=== PATIENT | male | born 1960 | race American Indian/Alaskan Native ===

== ENCOUNTER 2019-05-31 07:40 | Inpatient (IN) | payer OTHER ==
--- NOTE | 2019-05-31 09:39 | XRay Report ---
CHEST 1 VIEW INDICATION: JEFF. COMPARISON: None. FINDINGS: Support devices: None. Heart: Within normal limits. Pulmonary vasculature: Normal. Lungs/Pleura: Left lower lobe opacification with silhouetting of the left hemidiaphragm and the left heart border. Additional partially circumscribed rounded left lower lobe opacity. The left upper lobe is clear. The right lung is clear. Additional findings: None. IMPRESSION: 1. Acute left lower lobe pneumonia . 2. Recommend radiographic follow-up to resolution. Signer Name: Ky Dickerson MD Signed: 05/31/2019 9:35 AM Workstation Name: [id number]
[2019-05-31 09:41] LABS: Hematocrit 28.8 % (35.5-45.6); Hemoglobin 8.8 gm/dl (11.8-15.2); Mean Corpuscular HGB Conc 31 % (32-34); Mean Corpuscular Volume 83 fl (84-94); Platelet Count 349 K/mm3 (140-440); Red Blood Count 3.46 M/mm3 (3.65-5.03); Red Cell Distribution Width 18.3 % (13.2-15.2)
[2019-05-31 09:50] LABS: INR 1.04 (0.87-1.13)
[2019-05-31 10:11] LABS: Creatine Kinase MB < 1.0 ng/mL (0.0-4.0)
[2019-05-31 10:12] LABS: Alanine Aminotransferase 22 units/L (7-56); Albumin 3.1 g/dL (3.9-5); BUN/Creatinine Ratio 13; Bilirubin,Direct < 0.2 mg/dL (0-0.2); Blood Urea Nitrogen 13 mg/dL (9-20); Calcium 8.8 mg/dL (8.4-10.2); Hemolysis Index 13
[2019-05-31 11:29] LABS: Bacteria,Urine 1+ /HPF (Negative); Mucus,Urine FEW /HPF; RBC,Urine < 1.0 /HPF (0.0-6.0); WBC,Urine < 1.0 /HPF (0.0-6.0)
[2019-05-31 11:38] LABS: Bilirubin,Urine Negative (Negative); Blood,Urine Negative (Negative); Color,Urine Yellow (Yellow)
[2019-05-31] MEDS ORDERED: FUROSEMIDE 40 MG/4 ML INJ IV ONE (11:58)
[2019-05-31 12:01] LABS: Basophils % (Manual) 0 % (0.0-1.8); Total Cells Counted 100
[2019-05-31 12:02] LABS: Anisocytosis Few; Hypochromasia 1+; Ovalocytes Few; Platelet Estimate Consistent w Auto; Poikilocytosis Few
[2019-05-31] MEDS ORDERED: INSULIN REGULAR, HUMAN 100 UNITS/1 ML IV ONE (12:10)
[2019-05-31] MEDS ORDERED: HEPARIN 10,000 UNITS/10 ML VIAL IV ONE (12:11)
[2019-05-31 12:49] LABS: Hematocrit 29.6 % (35.5-45.6); Hemoglobin 9.1 gm/dl (11.8-15.2)
[2019-05-31 12:53] LABS: INR 1.1 (0.87-1.13)
[2019-05-31 12:54] LABS: Partial Thromboplastin Time 41.1 Sec. (24.2-36.6)
[2019-05-31] MEDS ORDERED: HEPARIN/ 0.45% NACL DRIP 25,000 UNIT/500 ML BAG IV SCH (13:00)
--- NOTE | 2019-05-31 14:19 | Emergency Department Report ---
ED Shortness of Breath HPI - General Chief Complaint: Dyspnea/Respdistress Stated Complaint: LEG SWELLING Time Seen by Provider: 05/31/19 08:30 Source: patient, EMS Mode of arrival: Stretcher Limitations: Physical Limitation - History of Present Illness Initial Comments: This is a 58-year-old pleasant gentleman place of bilateral lower extremity swelling he states for a week but perhaps it has been somewhat chronic. He has been short of breath on exertion. He states that it is worse in supine position. Apparently EMS found him with an initial pulse oximetry of 85%. He is not on home oxygen. He did improve to the high 90s with 2 L of supplemental O2. I encountered he is still tachypnea but not and respiratory distress. He denies recent fever or chills. He is not complaining of chest pain. He is somewhat of a poor historian. He cannot identify his current medications. However he states he is not on anticoagulation and has no history of VTE. MD Complaint: shortness of breath, cough (nonproductive) Severity: moderate Known History Of: COPD (JOE) Associated Symptoms: denies other symptoms - Related Data Allergies Allergy/AdvReac Type Severity Reaction Status Date / Time Unable to Assess Allergy Unverified 05/31/19 07:56 ED Review of Systems ROS: Stated complaint: LEG SWELLING Other details as noted in HPI Constitutional: denies: chills, fever Eyes: denies: eye pain, eye discharge, vision change ENT: denies: ear pain, throat pain Respiratory: cough, shortness of breath. denies: wheezing Cardiovascular: edema. denies: chest pain, palpitations Endocrine: no symptoms reported Gastrointestinal: denies: abdominal pain, nausea, diarrhea Genitourinary: denies: urgency, dysuria Musculoskeletal: denies: back pain, joint swelling, arthralgia Skin: denies: rash, lesions Neurological: denies: headache, weakness, paresthesias Psychiatric: denies: anxiety, depression Hematological/Lymphatic: denies: easy bleeding, easy bruising ED Past Medical Hx - Past Medical History Previous Medical History?: Yes Hx Hypertension: Yes Hx Congestive Heart Failure: Yes Hx Diabetes: Yes Additional medical history: JOE - Surgical History Past Surgical History?: Yes Hx Cholecystectomy: Yes - Social History Smoking Status: Never Smoker Substance Use Type: None ED Physical Exam - General Limitations: Physical Limitation General appearance: alert, in no apparent distress, other (somewhat tachypneic) - Head Head exam: Present: atraumatic, normocephalic - Eye Eye exam: Present: normal appearance. Absent: scleral icterus - ENT ENT exam: Present: mucous membranes moist - Neck Neck exam: Present: normal inspection, other (left supraclavicular mass nonpulsatile noted). Absent: tenderness, meningismus - Respiratory Respiratory exam: Present: normal lung sounds bilaterally. Absent: respiratory distress - Cardiovascular Cardiovascular Exam: Present: regular rate, normal rhythm. Absent: systolic murmur, diastolic murmur, rubs, gallop - GI/Abdominal GI/Abdominal exam: Present: soft, normal bowel sounds. Absent: distended, tenderness, guarding, rebound, rigid - Rectal Rectal exam: Present: deferred - Extremities Exam Extremities exam: Present: pedal edema (somewhat warm lower legs consistent with venous stasis and lymphedema), other (of special lower leg edema below the knee right greater than left. No calf tenderness.). Absent: calf tenderness - Back Exam Back exam: Present: normal inspection - Neurological Exam Neurological exam: Present: alert, oriented X3, CN II-XII intact. Absent: motor sensory deficit - Psychiatric Psychiatric exam: Present: normal affect, normal mood - Skin Skin exam: Present: warm, dry, intact, normal color. Absent: rash ED Course Vital Signs 05/31/19 05/31/19 05/31/19 07:43 07:50 08:00 Temperature 97.6 F Pulse Rate 100 H 103 H 100 H Respiratory 30 H 42 H 34 H Rate Blood Pressure 109/54 121/53 Blood Pressure [Left] O2 Sat by Pulse 97 97 Oximetry 05/31/19 05/31/19 05/31/19 10:00 12:00 14:23 Temperature Pulse Rate 96 H 97 H 102 H Respiratory 38 H 37 H 25 H Rate Blood Pressure 127/68 126/72 Blood Pressure 109/73 [Left] O2 Sat by Pulse 98 99 98 Oximetry - Reevaluation(s) Reevaluation #1: Patient was given antibiotics for pneumonia. He is given 1 dose of Lasix. He was empirically heparinized considering his d-dimer of greater than 4200 and is very swollen legs. His BMP was not substantially elevated. I spoke to the [facility] physician concerning the patient's need for admission. A CT angiogram was pending at that time. I will call her back to discuss the results. 05/31/19 14:25 Reevaluation #2: The patient's antecubital line blew upon attempted CTA. I'll inform the [facility] physician as CTA does not appear to be feasible at this point. 05/31/19 14:36 Reevaluation #3: Discussed with Dr. Schroeder at [facility]. She requested that we admit the patient here. 05/31/19 15:07 ED Medical Decision Making - Lab Data Result diagrams: 05/31/19 12:21 05/31/19 08:59 Laboratory Results - last 24 hr 05/31/19 05/31/19 05/31/19 08:59 08:59 08:59 WBC 7.5 RBC 3.46 L Hgb 8.8 L Hct 28.8 L MCV 83 L MCH 26 L MCHC 31 L RDW 18.3 H Plt Count 349 [place] % (Auto) [employer] Add Manual Diff Complete Total Counted 100 Seg Neuts % (Manual) 67.0 Band Neutrophils % 0 Lymphocytes % (Manual) 14.0 Reactive Lymphs % (Man) 0 Monocytes % (Manual) 11.0 H Eosinophils % (Manual) 8.0 H Basophils % (Manual) 0 Metamyelocytes % 0 Myelocytes % 0 Promyelocytes % 0 Blast Cells % 0 Nucleated RBC % Not Reportable Seg Neutrophils # Man 5.0 Band Neutrophils # 0.0 Lymphocytes # (Manual) 1.1 L Abs React Lymphs (Man) 0.0 Monocytes # (Manual) 0.8 Eosinophils # (Manual) 0.6 H Basophils # (Manual) 0.0 Metamyelocytes # 0.0 Myelocytes # 0.0 Promyelocytes # 0.0 Blast Cells # 0.0 WBC Morphology Not Reportable Hypersegmented Neuts Not Reportable Hyposegmented Neuts Not Reportable Hypogranular Neuts Not Reportable Smudge Cells Not Reportable Toxic Granulation Not Reportable Toxic Vacuolation Not Reportable Dohle Bodies Not Reportable Pelger-Huet Anomaly Not Reportable Mervin Rods Not Reportable Platelet Estimate Consistent w auto Clumped Platelets Not Reportable Plt Clumps, EDTA Not Reportable Large Platelets Not Reportable Giant Platelets Not Reportable Platelet Satelliting Not Reportable Plt Morphology Comment Not Reportable RBC Morphology Not Reportable Dimorphic RBCs Not Reportable Polychromasia Not Reportable Hypochromasia 1+ Poikilocytosis Few Anisocytosis Few Microcytosis Not Reportable Macrocytosis Not Reportable Spherocytes Not Reportable Pappenheimer Bodies Not Reportable Sickle Cells Not Reportable Target Cells Not Reportable Tear Drop Cells Not Reportable Ovalocytes Few Helmet Cells Not Reportable Brink-[place] Bodies Not Reportable [place] Rings Not Reportable [place] Cells Not Reportable Bite Cells Not Reportable Crenated Cell Not Reportable Elliptocytes Rare Acanthocytes (Spur) Not Reportable Rouleaux Not Reportable Hemoglobin C Crystals Not Reportable Schistocytes Not Reportable Malaria parasites Not Reportable Gianni Bodies Not Reportable Hem Pathologist Commnt No PT 13.5 INR 1.04 APTT 26.0 D-Dimer 4262.71 H Sodium 142 Potassium 5.4 H Chloride 106.2 Carbon Dioxide 19 L Anion Gap 22 BUN 13 Creatinine 1.0 Estimated GFR > 60 BUN/Creatinine Ratio 13 Glucose 304 H Calcium 8.8 Magnesium 1.70 Total Bilirubin 0.20 Direct Bilirubin < 0.2 Indirect Bilirubin 0.0 AST 27 ALT 22 Alkaline Phosphatase 103 Total Creatine Kinase 35 L CK-MB (CK-2) < 1.0 CK-MB (CK-2) Rel Index 2.8 Troponin T < 0.010 NT-Pro-B Natriuret Pep 305.5 Total Protein 7.0 Albumin 3.1 L Albumin/Globulin Ratio 0.8 Urine Color Urine Turbidity Urine pH Ur Specific [place] Urine Protein Urine Glucose (UA) Urine Ketones Urine Blood Urine Nitrite Ur Reducing Substances Urine Bilirubin Urine Ictotest Urine Urobilinogen Ur Leukocyte Esterase Urine WBC (Auto) Urine RBC (Auto) U Epithel Cells (Auto) Urine Bacteria (Auto) Urine Mucus Blood Type 05/31/19 05/31/19 05/31/19 12:21 12:21 12:21 WBC RBC Hgb 9.1 L Hct 29.6 L MCV MCH MCHC RDW Plt Count 375 [place] % (Auto) Add Manual Diff Total Counted Seg Neuts % (Manual) Band Neutrophils % Lymphocytes % (Manual) Reactive Lymphs % (Man) Monocytes % (Manual) Eosinophils % (Manual) Basophils % (Manual) Metamyelocytes % Myelocytes % Promyelocytes % Blast Cells % Nucleated RBC % Seg Neutrophils # Man Band Neutrophils # Lymphocytes # (Manual) Abs React Lymphs (Man) Monocytes # (Manual) Eosinophils # (Manual) Basophils # (Manual) Metamyelocytes # Myelocytes # Promyelocytes # Blast Cells # WBC Morphology Hypersegmented Neuts Hyposegmented Neuts Hypogranular Neuts Smudge Cells Toxic Granulation Toxic Vacuolation Dohle Bodies Pelger-Huet Anomaly Mervin Rods Platelet Estimate Clumped Platelets Plt Clumps, EDTA Large Platelets Giant Platelets Platelet Satelliting Plt Morphology Comment RBC Morphology Dimorphic RBCs Polychromasia Hypochromasia Poikilocytosis Anisocytosis Microcytosis Macrocytosis Spherocytes Pappenheimer Bodies Sickle Cells Target Cells Tear Drop Cells Ovalocytes Helmet Cells Brink-[place] Bodies [place] Rings [place] Cells Bite Cells Crenated Cell Elliptocytes Acanthocytes (Spur) Rouleaux Hemoglobin C Crystals Schistocytes Malaria parasites Gianni Bodies Hem Pathologist Commnt PT 14.1 INR 1.10 APTT 41.1 H D-Dimer Sodium Potassium Chloride Carbon Dioxide Anion Gap BUN Creatinine Estimated GFR BUN/Creatinine Ratio Glucose Calcium Magnesium Total Bilirubin Direct Bilirubin Indirect Bilirubin AST ALT Alkaline Phosphatase Total Creatine Kinase CK-MB (CK-2) CK-MB (CK-2) Rel Index Troponin T NT-Pro-B Natriuret Pep Total Protein Albumin Albumin/Globulin Ratio Urine Color Urine Turbidity Urine pH Ur Specific [place] Urine Protein Urine Glucose (UA) Urine Ketones Urine Blood Urine Nitrite Ur Reducing Substances Urine Bilirubin Urine Ictotest Urine Urobilinogen Ur Leukocyte Esterase Urine WBC (Auto) Urine RBC (Auto) U Epithel Cells (Auto) Urine Bacteria (Auto) Urine Mucus Blood Type A POSITIVE 05/31/19 Unknown WBC RBC Hgb Hct MCV MCH MCHC RDW Plt Count [place] % (Auto) Add Manual Diff Total Counted Seg Neuts % (Manual) Band Neutrophils % Lymphocytes % (Manual) Reactive Lymphs % (Man) Monocytes % (Manual) Eosinophils % (Manual) Basophils % (Manual) Metamyelocytes % Myelocytes % Promyelocytes % Blast Cells % Nucleated RBC % Seg Neutrophils # Man Band Neutrophils # Lymphocytes # (Manual) Abs React Lymphs (Man) Monocytes # (Manual) Eosinophils # (Manual) Basophils # (Manual) Metamyelocytes # Myelocytes # Promyelocytes # Blast Cells # WBC Morphology Hypersegmented Neuts Hyposegmented Neuts Hypogranular Neuts Smudge Cells Toxic Granulation Toxic Vacuolation Dohle Bodies Pelger-Huet Anomaly Mervin Rods Platelet Estimate Clumped Platelets Plt Clumps, EDTA Large Platelets Giant Platelets Platelet Satelliting Plt Morphology Comment RBC Morphology Dimorphic RBCs Polychromasia Hypochromasia Poikilocytosis Anisocytosis Microcytosis Macrocytosis Spherocytes Pappenheimer Bodies Sickle Cells Target Cells Tear Drop Cells Ovalocytes Helmet Cells Brink-[place] Bodies [place] Rings [place] Cells Bite Cells Crenated Cell Elliptocytes Acanthocytes (Spur) Rouleaux Hemoglobin C Crystals Schistocytes Malaria parasites Gianni Bodies Hem Pathologist Commnt PT INR APTT D-Dimer Sodium Potassium Chloride Carbon Dioxide Anion Gap BUN Creatinine Estimated GFR BUN/Creatinine Ratio Glucose Calcium Magnesium Total Bilirubin Direct Bilirubin Indirect Bilirubin AST ALT Alkaline Phosphatase Total Creatine Kinase CK-MB (CK-2) CK-MB (CK-2) Rel Index Troponin T NT-Pro-B Natriuret Pep Total Protein Albumin Albumin/Globulin Ratio Urine Color Yellow Urine Turbidity Clear Urine pH 6.0 Ur Specific [place] 1.010 Urine Protein 30 mg/dl Urine Glucose (UA) Negative Urine Ketones Negative Urine Blood Negative Urine Nitrite Negative Ur Reducing Substances Not Reportable Urine Bilirubin Negative Urine Ictotest Not Reportable Urine Urobilinogen 0.0 Ur Leukocyte Esterase Negative Urine WBC (Auto) < 1.0 Urine RBC (Auto) < 1.0 U Epithel Cells (Auto) 1.0 Urine Bacteria (Auto) 1+ Urine Mucus Few Blood Type Laboratory Results - last 24 hr 05/31/19 05/31/19 05/31/19 08:59 08:59 08:59 WBC 7.5 RBC 3.46 L Hgb 8.8 L Hct 28.8 L MCV 83 L MCH 26 L MCHC 31 L RDW 18.3 H Plt Count 349 [place] % (Auto) [employer] Add Manual Diff Complete Total Counted 100 Seg Neuts % (Manual) 67.0 Band Neutrophils % 0 Lymphocytes % (Manual) 14.0 Reactive Lymphs % (Man) 0 Monocytes % (Manual) 11.0 H Eosinophils % (Manual) 8.0 H Basophils % (Manual) 0 Metamyelocytes % 0 Myelocytes % 0 Promyelocytes % 0 Blast Cells % 0 Nucleated RBC % Not Reportable Seg Neutrophils # Man 5.0 Band Neutrophils # 0.0 Lymphocytes # (Manual) 1.1 L Abs React Lymphs (Man) 0.0 Monocytes # (Manual) 0.8 Eosinophils # (Manual) 0.6 H Basophils # (Manual) 0.0 Metamyelocytes # 0.0 Myelocytes # 0.0 Promyelocytes # 0.0 Blast Cells # 0.0 WBC Morphology Not Reportable Hypersegmented Neuts Not Reportable Hyposegmented Neuts Not Reportable Hypogranular Neuts Not Reportable Smudge Cells Not Reportable Toxic Granulation Not Reportable Toxic Vacuolation Not Reportable Dohle Bodies Not Reportable Pelger-Huet Anomaly Not Reportable Mervin Rods Not Reportable Platelet Estimate Consistent w auto Clumped Platelets Not Reportable Plt Clumps, EDTA Not Reportable Large Platelets Not Reportable Giant Platelets Not Reportable Platelet Satelliting Not Reportable Plt Morphology Comment Not Reportable RBC Morphology Not Reportable Dimorphic RBCs Not Reportable Polychromasia Not Reportable Hypochromasia 1+ Poikilocytosis Few Anisocytosis Few Microcytosis Not Reportable Macrocytosis Not Reportable Spherocytes Not Reportable Pappenheimer Bodies Not Reportable Sickle Cells Not Reportable Target Cells Not Reportable Tear Drop Cells Not Reportable Ovalocytes Few Helmet Cells Not Reportable Brink-[place] Bodies Not Reportable [place] Rings Not Reportable [place] Cells Not Reportable Bite Cells Not Reportable Crenated Cell Not Reportable Elliptocytes Rare Acanthocytes (Spur) Not Reportable Rouleaux Not Reportable Hemoglobin C Crystals Not Reportable Schistocytes Not Reportable Malaria parasites Not Reportable Gianni Bodies Not Reportable Hem Pathologist Commnt No PT 13.5 INR 1.04 APTT 26.0 D-Dimer 4262.71 H Sodium 142 Potassium 5.4 H Chloride 106.2 Carbon Dioxide 19 L Anion Gap 22 BUN 13 Creatinine 1.0 Estimated GFR > 60 BUN/Creatinine Ratio 13 Glucose 304 H Calcium 8.8 Magnesium 1.70 Total Bilirubin 0.20 Direct Bilirubin < 0.2 Indirect Bilirubin 0.0 AST 27 ALT 22 Alkaline Phosphatase 103 Total Creatine Kinase 35 L CK-MB (CK-2) < 1.0 CK-MB (CK-2) Rel Index 2.8 Troponin T < 0.010 NT-Pro-B Natriuret Pep 305.5 Total Protein 7.0 Albumin 3.1 L Albumin/Globulin Ratio 0.8 Urine Color Urine Turbidity Urine pH Ur Specific [place] Urine Protein Urine Glucose (UA) Urine Ketones Urine Blood Urine Nitrite Ur Reducing Substances Urine Bilirubin Urine Ictotest Urine Urobilinogen Ur Leukocyte Esterase Urine WBC (Auto) Urine RBC (Auto) U Epithel Cells (Auto) Urine Bacteria (Auto) Urine Mucus Blood Type Antibody Screen 05/31/19 05/31/19 05/31/19 12:21 12:21 12:21 WBC RBC Hgb 9.1 L Hct 29.6 L MCV MCH MCHC RDW Plt Count 375 [place] % (Auto) Add Manual Diff Total Counted Seg Neuts % (Manual) Band Neutrophils % Lymphocytes % (Manual) Reactive Lymphs % (Man) Monocytes % (Manual) Eosinophils % (Manual) Basophils % (Manual) Metamyelocytes % Myelocytes % Promyelocytes % Blast Cells % Nucleated RBC % Seg Neutrophils # Man Band Neutrophils # Lymphocytes # (Manual) Abs React Lymphs (Man) Monocytes # (Manual) Eosinophils # (Manual) Basophils # (Manual) Metamyelocytes # Myelocytes # Promyelocytes # Blast Cells # WBC Morphology Hypersegmented Neuts Hyposegmented Neuts Hypogranular Neuts Smudge Cells Toxic Granulation Toxic Vacuolation Dohle Bodies Pelger-Huet Anomaly Mervin Rods Platelet Estimate Clumped Platelets Plt Clumps, EDTA Large Platelets Giant Platelets Platelet Satelliting Plt Morphology Comment RBC Morphology Dimorphic RBCs Polychromasia Hypochromasia Poikilocytosis Anisocytosis Microcytosis Macrocytosis Spherocytes Pappenheimer Bodies Sickle Cells Target Cells Tear Drop Cells Ovalocytes Helmet Cells Brink-[place] Bodies [place] Rings [place]le[place] Cells Bite Cells Crenated Cell Elliptocytes Acanthocytes (Spur) Rouleaux Hemoglobin C Crystals Schistocytes Malaria parasites Gianni Bodies Hem Pathologist Commnt PT 14.1 INR 1.10 APTT 41.1 H D-Dimer Sodium Potassium Chloride Carbon Dioxide Anion Gap BUN Creatinine Estimated GFR BUN/Creatinine Ratio Glucose Calcium Magnesium Total Bilirubin Direct Bilirubin Indirect Bilirubin AST ALT Alkaline Phosphatase Total Creatine Kinase CK-MB (CK-2) CK-MB (CK-2) Rel Index Troponin T NT-Pro-B Natriuret Pep Total Protein Albumin Albumin/Globulin Ratio Urine Color Urine Turbidity Urine pH Ur Specific [place] Urine Protein Urine Glucose (UA) Urine Ketones Urine Blood Urine Nitrite Ur Reducing Substances Urine Bilirubin Urine Ictotest Urine Urobilinogen Ur Leukocyte Esterase Urine WBC (Auto) Urine RBC (Auto) U Epithel Cells (Auto) Urine Bacteria (Auto) Urine Mucus Blood Type A POSITIVE Antibody Screen Negative 05/31/19 Unknown WBC RBC Hgb Hct MCV MCH MCHC RDW Plt Count [place] % (Auto) Add Manual Diff Total Counted Seg Neuts % (Manual) Band Neutrophils % Lymphocytes % (Manual) Reactive Lymphs % (Man) Monocytes % (Manual) Eosinophils % (Manual) Basophils % (Manual) Metamyelocytes % Myelocytes % Promyelocytes % Blast Cells % Nucleated RBC % Seg Neutrophils # Man Band Neutrophils # Lymphocytes # (Manual) Abs React Lymphs (Man) Monocytes # (Manual) Eosinophils # (Manual) Basophils # (Manual) Metamyelocytes # Myelocytes # Promyelocytes # Blast Cells # WBC Morphology Hypersegmented Neuts Hyposegmented Neuts Hypogranular Neuts Smudge Cells Toxic Granulation Toxic Vacuolation Dohle Bodies Pelger-Huet Anomaly Mervin Rods Platelet Estimate Clumped Platelets Plt Clumps, EDTA Large Platelets Giant Platelets Platelet Satelliting Plt Morphology Comment RBC Morphology Dimorphic RBCs Polychromasia Hypochromasia Poikilocytosis Anisocytosis Microcytosis Macrocytosis Spherocytes Pappenheimer Bodies Sickle Cells Target Cells Tear Drop Cells Ovalocytes Helmet Cells Brink-[place] Bodies [place] Rings [place] Cells Bite Cells Crenated Cell Elliptocytes Acanthocytes (Spur) Rouleaux Hemoglobin C Crystals Schistocytes Malaria parasites Gianni Bodies Hem Pathologist Commnt PT INR APTT D-Dimer Sodium Potassium Chloride Carbon Dioxide Anion Gap BUN Creatinine Estimated GFR BUN/Creatinine Ratio Glucose Calcium Magnesium Total Bilirubin Direct Bilirubin Indirect Bilirubin AST ALT Alkaline Phosphatase Total Creatine Kinase CK-MB (CK-2) CK-MB (CK-2) Rel Index Troponin T NT-Pro-B Natriuret Pep Total Protein Albumin Albumin/Globulin Ratio Urine Color Yellow Urine Turbidity Clear Urine pH 6.0 Ur Specific [place] 1.010 Urine Protein 30 mg/dl Urine Glucose (UA) Negative Urine Ketones Negative Urine Blood Negative Urine Nitrite Negative Ur Reducing Substances Not Reportable Urine Bilirubin Negative Urine Ictotest Not Reportable Urine Urobilinogen 0.0 Ur Leukocyte Esterase Negative Urine WBC (Auto) < 1.0 Urine RBC (Auto) < 1.0 U Epithel Cells (Auto) 1.0 Urine Bacteria (Auto) 1+ Urine Mucus Few Blood Type Antibody Screen - EKG Data -: EKG Interpreted by Mn EKG shows normal: sinus rhythm, axis, intervals, QRS complexes, ST-T waves Rate: tachycardia - EKG Data Interpretation: nonspecific ST-T wave sukumar - Radiology Data Radiology results: report reviewed, image reviewed IMPRESSION: 1. Acute left lower lobe pneumonia . 2. Recommend radiographic follow-up to resolution The radiologist The left lower lobe density is somewhat roundish and could be consistent with a mass lesion in my opinion. Critical care attestation.: If time is entered above; I have spent that time in minutes in the direct care of this critically ill patient, excluding procedure time. ED Disposition Clinical Impression: Elevated d-dimer, Mass in neck, Hypoxia Pneumonia Qualifiers: Pneumonia type: due to unspecified organism Laterality: left Lung location: unspecified part of lung Qualified Code(s): J18.9 - Pneumonia, unspecified organism Disposition: OP ADMIT IP TO THIS HOSP Is pt being admited?: Yes Does the pt Need Aspirin: Yes Condition: Stable Instructions: Bacterial Pneumonia (ED) Referrals: YOGESH PEREIRA MD [Primary Care Provider] - 3-5 Days Time of Disposition: 15:18
[2019-05-31] MEDS ORDERED: cefTRIAXone/NS 1 GM/50 ML 1 GM/50 ML BAG IV ONE ×2 (14:20→17:59)
[2019-05-31] MEDS ORDERED: ASPIRIN 81 MG TAB CHEW PO ONE (15:22)
[2019-05-31] MEDS ORDERED: INSULIN REGULAR, HUMAN 100 UNITS/1 ML ONE (17:49)
[2019-05-31] MEDS ORDERED: ASPIRIN 81 MG TAB CHEW ONE (17:59)
--- NOTE | 2019-05-31 18:38 | History and Physical Report ---
History of Present Illness Date of examination: 05/31/19 Date of admission: 05/31/19 Chief complaint: Increasing SOB for one week History of present illness: 58-year-old pleasant gentleman comes in for bilateral lower extremity swelling for one week and increasing sob for one week.COugh non productive.Patient has orthopnea.Also class IV NYHA symptoms.No fever or chills. Initial room air sats 85 percent . Past Medical History Previous Medical History?: Yes Hypertension: Yes Congestive Heart Failure: Yes Diabetes: Yes Additional medical history: JOE Surgical History Past Surgical History?: Yes Cholecystectomy: Yes Social History Smoking Status: Never Smoker Substance Use Type: None Family History Htn Review of Systems ROS: Stated complaint: LEG SWELLING Other details as noted in HPI Constitutional: denies: chills, fever Eyes: denies: eye pain, eye discharge, vision change ENT: denies: ear pain, throat pain Respiratory: cough, shortness of breath. denies: wheezing Cardiovascular: edema. denies: chest pain, palpitations Endocrine: no symptoms reported Gastrointestinal: denies: abdominal pain, nausea, diarrhea Genitourinary: denies: urgency, dysuria Musculoskeletal: denies: back pain, joint swelling, arthralgia Skin: denies: rash, lesions Neurological: denies: headache, weakness, paresthesias Psychiatric: denies: anxiety, depression Hematological/Lymphatic: denies: easy bleeding, easy bruising Medications and Allergies Allergies Allergy/AdvReac Type Severity Reaction Status Date / Time Unable to Assess Allergy Unverified 05/31/19 07:56 Active Meds: Active Medications Heparin Sodium/Sodium Chloride (Heparin/ 0.45% Nacl-25,000 Unit/500 Ml) 25,000 unit in 500 mls @ 30 mls/hr IV TITR SHANEL; Protocol Last Admin: 05/31/19 13:14 Dose: 1,500 units/hr, 30 mls/hr Documented by: Exam - Constitutional Vitals: Temp Pulse Resp BP Pulse Ox 97.6 F 103 H 25 H 109/88 100 05/31/19 07:43 05/31/19 18:28 05/31/19 18:28 05/31/19 18:28 05/31/19 18:28 General appearance: Present: mild distress, well-nourished - EENT Eyes: Present: PERRL ENT: hearing intact, clear oral mucosa - Neck Neck: Present: supple, normal ROM - Respiratory Respiratory effort: normal Respiratory: bilateral: diminished, rhonchi, wheezing - Cardiovascular Heart rate: 78 Rhythm: regular Heart Sounds: Present: S1 & S2. Absent: rub, click - Extremities Extremities: no ischemia, pulses intact, pulses symmetrical, No edema Extremity abnormal: edema (4 plus) Peripheral Pulses: within normal limits - Abdominal General gastrointestinal: Present: soft, non-tender, non-distended, normal bowel sounds Male genitourinary: Present: normal - Integumentary Integumentary: Present: clear, warm, dry - Musculoskeletal Musculoskeletal: gait normal, strength equal bilaterally - Psychiatric Psychiatric: appropriate mood/affect, intact judgment & insight - Neurologic Neurologic: CNII-XII intact, moves all extremities Results - Labs CBC & Chem 7: 06/01/19 03:51 06/01/19 03:51 Labs: Laboratory Last Values WBC 7.5 K/mm3 (4.5-11.0) 05/31/19 08:59 RBC 3.46 M/mm3 (3.65-5.03) L 05/31/19 08:59 Hgb 9.1 gm/dl (11.8-15.2) L 05/31/19 12:21 Hct 29.6 % (35.5-45.6) L 05/31/19 12:21 MCV 83 fl (84-94) L 05/31/19 08:59 MCH 26 pg (28-32) L 05/31/19 08:59 MCHC 31 % (32-34) L 05/31/19 08:59 RDW 18.3 % (13.2-15.2) H 05/31/19 08:59 Plt Count 375 K/mm3 (140-440) 05/31/19 12:21 [place] % (Auto) Public Address System Mechanic 05/31/19 08:59 Add Manual Diff Complete 05/31/19 08:59 Total Counted 100 05/31/19 08:59 Seg Neuts % (Manual) 67.0 % (40.0-70.0) 05/31/19 08:59 Band Neutrophils % 0 % 05/31/19 08:59 Lymphocytes % (Manual) 14.0 % (13.4-35.0) 05/31/19 08:59 Reactive Lymphs % (Man) 0 % 05/31/19 08:59 Monocytes % (Manual) 11.0 % (0.0-7.3) H 05/31/19 08:59 Eosinophils % (Manual) 8.0 % (0.0-4.3) H 05/31/19 08:59 Basophils % (Manual) 0 % (0.0-1.8) 05/31/19 08:59 Metamyelocytes % 0 % 05/31/19 08:59 Myelocytes % 0 % 05/31/19 08:59 Promyelocytes % 0 % 05/31/19 08:59 Blast Cells % 0 % 05/31/19 08:59 Nucleated RBC % Not Reportable 05/31/19 08:59 Seg Neutrophils # Man 5.0 K/mm3 (1.8-7.7) 05/31/19 08:59 Band Neutrophils # 0.0 K/mm3 05/31/19 08:59 Lymphocytes # (Manual) 1.1 K/mm3 (1.2-5.4) L 05/31/19 08:59 Abs React Lymphs (Man) 0.0 K/mm3 05/31/19 08:59 Monocytes # (Manual) 0.8 K/mm3 (0.0-0.8) 05/31/19 08:59 Eosinophils # (Manual) 0.6 K/mm3 (0.0-0.4) H 05/31/19 08:59 Basophils # (Manual) 0.0 K/mm3 (0.0-0.1) 05/31/19 08:59 Metamyelocytes # 0.0 K/mm3 05/31/19 08:59 Myelocytes # 0.0 K/mm3 05/31/19 08:59 Promyelocytes # 0.0 K/mm3 05/31/19 08:59 Blast Cells # 0.0 K/mm3 05/31/19 08:59 WBC Morphology Not Reportable 05/31/19 08:59 Hypersegmented Neuts Not Reportable 05/31/19 08:59 Hyposegmented Neuts Not Reportable 05/31/19 08:59 Hypogranular Neuts Not Reportable 05/31/19 08:59 Smudge Cells Not Reportable 05/31/19 08:59 Toxic Granulation Not Reportable 05/31/19 08:59 Toxic Vacuolation Not Reportable 05/31/19 08:59 Dohle Bodies Not Reportable 05/31/19 08:59 Pelger-Huet Anomaly Not Reportable 05/31/19 08:59 Mervin Rods Not Reportable 05/31/19 08:59 Platelet Estimate Consistent w auto 05/31/19 08:59 Clumped Platelets Not Reportable 05/31/19 08:59 Plt Clumps, EDTA Not Reportable 05/31/19 08:59 Large Platelets Not Reportable 05/31/19 08:59 Giant Platelets Not Reportable 05/31/19 08:59 Platelet Satelliting Not Reportable 05/31/19 08:59 Plt Morphology Comment Not Reportable 05/31/19 08:59 RBC Morphology Not Reportable 05/31/19 08:59 Dimorphic RBCs Not Reportable 05/31/19 08:59 Polychromasia Not Reportable 05/31/19 08:59 Hypochromasia 1+ 05/31/19 08:59 Poikilocytosis Few 05/31/19 08:59 Anisocytosis Few 05/31/19 08:59 Microcytosis Not Reportable 05/31/19 08:59 Macrocytosis Not Reportable 05/31/19 08:59 Spherocytes Not Reportable 05/31/19 08:59 Pappenheimer Bodies Not Reportable 05/31/19 08:59 Sickle Cells Not Reportable 05/31/19 08:59 Target Cells Not Reportable 05/31/19 08:59 Tear Drop Cells Not Reportable 05/31/19 08:59 Ovalocytes Few 05/31/19 08:59 Helmet Cells Not Reportable 05/31/19 08:59 [place] Bodies Not Reportable 05/31/19 08:59 [place] Rings Not Reportable 05/31/19 08:59 Guion Cells Not Reportable 05/31/19 08:59 Bite Cells Not Reportable 05/31/19 08:59 Crenated Cell Not Reportable 05/31/19 08:59 Elliptocytes Rare 05/31/19 08:59 Acanthocytes (Spur) Not Reportable 05/31/19 08:59 Rouleaux Not Reportable 05/31/19 08:59 Hemoglobin C Crystals Not Reportable 05/31/19 08:59 Schistocytes Not Reportable 05/31/19 08:59 Malaria parasites Not Reportable 05/31/19 08:59 Gianni Bodies Not Reportable 05/31/19 08:59 Hem Pathologist Commnt No 05/31/19 08:59 PT 14.1 Sec. (12.2-14.9) 05/31/19 12:21 INR 1.10 (0.87-1.13) 05/31/19 12:21 APTT 41.1 Sec. (24.2-36.6) H 05/31/19 12:21 D-Dimer 4262.71 ng/mlDDU (0-234) H 05/31/19 08:59 Sodium 142 mmol/L (137-145) 05/31/19 08:59 Potassium 5.4 mmol/L (3.6-5.0) H 05/31/19 08:59 Chloride 106.2 mmol/L (98-107) 05/31/19 08:59 Carbon Dioxide 19 mmol/L (22-30) L 05/31/19 08:59 Anion Gap 22 mmol/L 05/31/19 08:59 BUN 13 mg/dL (9-20) 05/31/19 08:59 Creatinine 1.0 mg/dL (0.8-1.5) 05/31/19 08:59 Estimated GFR > 60 ml/min 05/31/19 08:59 BUN/Creatinine Ratio 13 % 05/31/19 08:59 Glucose 304 mg/dL (75-100) H 05/31/19 08:59 POC Glucose 329 (70-105) H 05/31/19 17:31 Calcium 8.8 mg/dL (8.4-10.2) 05/31/19 08:59 Magnesium 1.70 mg/dL (1.7-2.3) 05/31/19 08:59 Total Bilirubin 0.20 mg/dL (0.1-1.2) 05/31/19 08:59 Direct Bilirubin < 0.2 mg/dL (0-0.2) 05/31/19 08:59 Indirect Bilirubin 0.0 mg/dL 05/31/19 08:59 AST 27 units/L (5-40) 05/31/19 08:59 ALT 22 units/L (7-56) 05/31/19 08:59 Alkaline Phosphatase 103 units/L (35-129) 05/31/19 08:59 Total Creatine Kinase 35 units/L (55-170) L 05/31/19 08:59 CK-MB (CK-2) < 1.0 ng/mL (0.0-4.0) 05/31/19 08:59 CK-MB (CK-2) Rel Index 2.8 (0-4) 05/31/19 08:59 Troponin T < 0.010 ng/mL (0.00-0.029) 05/31/19 08:59 NT-Pro-B Natriuret Pep 305.5 pg/mL (0-900) 05/31/19 08:59 Total Protein 7.0 g/dL (6.3-8.2) 05/31/19 08:59 Albumin 3.1 g/dL (3.9-5) L 05/31/19 08:59 Albumin/Globulin Ratio 0.8 % 05/31/19 08:59 Urine Color Yellow (Yellow) 05/31/19 Unknown Urine Turbidity Clear (Clear) 05/31/19 Unknown Urine pH 6.0 (5.0-7.0) 05/31/19 Unknown Ur Specific [place] 1.010 (1.003-1.030) 05/31/19 Unknown Urine Protein 30 mg/dl mg/dL (Negative) 05/31/19 Unknown Urine Glucose (UA) Negative mg/dL (Negative) 05/31/19 Unknown Urine Ketones Negative mg/dL (Negative) 05/31/19 Unknown Urine Blood Negative (Negative) 05/31/19 Unknown Urine Nitrite Negative (Negative) 05/31/19 Unknown Ur Reducing Substances Not Reportable 05/31/19 Unknown Urine Bilirubin Negative (Negative) 05/31/19 Unknown Urine Ictotest Not Reportable 05/31/19 Unknown Urine Urobilinogen 0.0 mg/dL (<2.0) 05/31/19 Unknown Ur Leukocyte Esterase Negative (Negative) 05/31/19 Unknown Urine WBC (Auto) < 1.0 /HPF (0.0-6.0) 05/31/19 Unknown Urine RBC (Auto) < 1.0 /HPF (0.0-6.0) 05/31/19 Unknown U Epithel Cells (Auto) 1.0 /HPF (0-13.0) 05/31/19 Unknown Urine Bacteria (Auto) 1+ /HPF (Negative) 05/31/19 Unknown Urine Mucus Few /HPF 05/31/19 Unknown Blood Type A POSITIVE 05/31/19 12:21 Antibody Screen Negative 05/31/19 12:21 Short CBC 05/31/19 05/31/19 06/01/19 Range/Units 08:59 12:21 03:51 WBC 7.5 7.0 (4.5-11.0) K/mm3 Hgb 8.8 L 9.1 L 9.0 L (11.8-15.2) gm/dl Hct 28.8 L 29.6 L 29.0 L (35.5-45.6) % Plt Count 349 375 411 (140-440) K/mm3 BMP 05/31/19 06/01/19 08:59 03:51 Sodium 142 142 Potassium 5.4 H 4.7 Chloride 106.2 101.5 Carbon Dioxide 19 L 29 D BUN 13 12 Creatinine 1.0 1.0 Glucose 304 H 374 H Calcium 8.8 9.1 Cardiac Enzymes 05/31/19 Range/Units 08:59 Total Creatine Kinase 35 L (55-170) units/L CK-MB (CK-2) < 1.0 (0.0-4.0) ng/mL Troponin T < 0.010 (0.00-0.029) ng/mL Liver Function 05/31/19 06/01/19 Range/Units 08:59 03:51 Total Bilirubin 0.20 0.20 (0.1-1.2) mg/dL Direct Bilirubin < 0.2 (0-0.2) mg/dL AST 27 29 (5-40) units/L ALT 22 22 (7-56) units/L Alkaline Phosphatase 103 106 (35-129) units/L Albumin 3.1 L 3.3 L (3.9-5) g/dL Urine 05/31/19 Range/Units Unknown Urine Color Yellow (Yellow) Urine pH 6.0 (5.0-7.0) Ur Specific [place] 1.010 (1.003-1.030) Urine Protein 30 mg/dl (Negative) mg/dL Urine Glucose (UA) Negative (Negative) mg/dL Short CBC 05/31/19 05/31/19 06/01/19 Range/Units 08:59 12:21 03:51 WBC 7.5 7.0 (4.5-11.0) K/mm3 Hgb 8.8 L 9.1 L 9.0 L (11.8-15.2) gm/dl Hct 28.8 L 29.6 L 29.0 L (35.5-45.6) % Plt Count 349 375 411 (140-440) K/mm3 BMP 05/31/19 06/01/19 08:59 03:51 Sodium 142 142 Potassium 5.4 H 4.7 Chloride 106.2 101.5 Carbon Dioxide 19 L 29 D BUN 13 12 Creatinine 1.0 1.0 Glucose 304 H 374 H Calcium 8.8 9.1 Cardiac Enzymes 05/31/19 Range/Units 08:59 Total Creatine Kinase 35 L (55-170) units/L CK-MB (CK-2) < 1.0 (0.0-4.0) ng/mL Troponin T < 0.010 (0.00-0.029) ng/mL Liver Function 05/31/19 06/01/19 Range/Units 08:59 03:51 Total Bilirubin 0.20 0.20 (0.1-1.2) mg/dL Direct Bilirubin < 0.2 (0-0.2) mg/dL AST 27 29 (5-40) units/L ALT 22 22 (7-56) units/L Alkaline Phosphatase 103 106 (35-129) units/L Albumin 3.1 L 3.3 L (3.9-5) g/dL Urine 05/31/19 Range/Units Unknown Urine Color Yellow (Yellow) Urine pH 6.0 (5.0-7.0) Ur Specific [place] 1.010 (1.003-1.030) Urine Protein 30 mg/dl (Negative) mg/dL Urine Glucose (UA) Negative (Negative) mg/dL - Imaging and Cardiology EKG: report reviewed (Sinus tachycardia 100/min Probable LVH) Chest x-ray: report reviewed (LLL PNA) CT scan - chest: report reviewed (Bilateral PNA,No PE) Assessment and Plan Advance Directives: Yes (Full code) VTE prophylaxis?: Chemical Plan of care discussed with patient/family: Yes - Patient Problems (1) Acute respiratory failure Current Visit: Yes Status: Acute Qualifiers: Respiratory failure complication: hypoxia Qualified Code(s): J96.01 - Acute respiratory failure with hypoxia Plan to address problem: Cont O2 and bipap as necessary. IV abx IV Solumedrol and Duonebs (2) Bilateral pneumonia Current Visit: Yes Status: Acute Qualifiers: Lung location: unspecified part of lung Plan to address problem: IV abx and Duonebs for now (3) Acute exacerbation of CHF (congestive heart failure) Current Visit: Yes Status: Acute Qualifiers: Heart failure type: combined systolic and diastolic Qualified Code(s): I50.43 - Acute on chronic combined systolic (congestive) and diastolic (congestive) heart failure Plan to address problem: On IV Lasix (4) T2DM (type 2 diabetes mellitus) Current Visit: Yes Status: Chronic Qualifiers: Diabetes mellitus snf insulin use: unspecified moth exterminator insulin use status Plan to address problem: COnt coverage Initiate Metformin and Glimepiride Check A1c (5) HTN (hypertension) Current Visit: Yes Status: Chronic Qualifiers: Hypertension type: essential hypertension Qualified Code(s): I10 - Essential (primary) hypertension Plan to address problem: Cont antihypertensives (6) JOE (obstructive sleep apnea) Current Visit: Yes Status: Chronic Plan to address problem: Cont Cpap (7) DVT prophylaxis Current Visit: Yes Status: Acute Plan to address problem: On Heparin and GI prophylaxis
[2019-05-31] MEDS ORDERED: ACETAMINOPHEN 325 MG TAB PO PRN (18:40)
[2019-05-31] MEDS ORDERED: HYDROmorphone 1 MG/1 ML INJ IV PRN (18:40)
[2019-05-31] MEDS ORDERED: oxyCODONE /ACETAMINOPHEN 5-325MG TAB PO PRN (18:40)
[2019-05-31] MEDS ORDERED: METOCLOPRAMIDE 10 MG/2 ML INJ IV PRN (18:40)
[2019-05-31] MEDS ORDERED: ONDANSETRON 4 MG/2 ML INJ IV PRN (18:40)
--- NOTE | 2019-05-31 20:18 | Cat Scan Report ---
CTA CHEST WITH IV CONTRAST INDICATION: lower lobe opacification, elevated d-dimer. TECHNIQUE: Axial CT images were obtained through the chest after injection of 100 mL Omnipaque 350 IV contrast. 3 plane MIP reconstructions were produced. All CT scans at this location are performed using CT dose reduction for ALARA by means of automated exposure control. COMPARISON: None available. FINDINGS: PULMONARY ARTERIES: Well opacified without distinct thromboemboli. AORTA AND ARTERIES: No acute abnormality. MEDIASTINUM: There are shoddy mediastinal nodes. The heart is moderately enlarged. No other significa nt abnormality is seen. LUNGS: There is dense consolidation of the left lower lobe. A masslike area of consolidation is seen medially along the apex of the right lung. Additional scattered nodular opacities are seen along the right upper and lower lobes and the left upper lobe. There is a small left pleural effusion. No pneum othorax is seen. ADDITIONAL FINDINGS: None. UPPER ABDOMEN: No acute abnormality is seen. There is generalized hepatic steatosis. BONES: Degenerative changes are noted throughout the spine without an acute abnormality. IMPRESSION: 1. No CT evidence for pulmonary embolism. 2. Suspected bilateral pneumonia. A follow-up CT of the chest without contrast in one month is recomm ended to document clearing. 3. Additional findings as above. Signer Name: Jerry Childers MD Signed: 05/31/2019 8:13 PM Workstation Name: [id number]
[2019-05-31] MEDS: INSULIN LISPRO 100 UNIT/ML SUB-Q SCH (23:46)
[2019-05-31] MEDS: POTASSIUM CHLORIDE ER 20 MEQ TAB PO SCH (23:51)
[2019-05-31] MEDS: HEPARIN 5,000 UNIT/1 ML VIAL SUB-Q SCH (23:51)
[2019-06-01 05:01] LABS: Basophils # (Auto) 0.1 K/mm3 (0.0-0.1); Basophils % (Auto) 0.8 % (0.0-1.8); Eosinophils # (Auto) 0.5 K/mm3 (0.0-0.4); Eosinophils % (Auto) 6.7 % (0.0-4.3); Lymphocytes # (Auto) 1.2 K/mm3 (1.2-5.4); Lymphocytes % (Auto) 16.5 % (13.4-35.0); Mean Corpuscular HGB Conc 31 % (32-34); Mean Corpuscular Volume 81 fl (84-94); Monocytes % (Auto) 13.9 % (0.0-7.3); Platelet Count 411 K/mm3 (140-440); Red Blood Count 3.57 M/mm3 (3.65-5.03); Red Cell Distribution Width 17.9 % (13.2-15.2)
[2019-06-01 05:19] LABS: Alanine Aminotransferase 22 units/L (7-56); Albumin 3.3 g/dL (3.9-5); BUN/Creatinine Ratio 12; Blood Urea Nitrogen 12 mg/dL (9-20); Hemolysis Index 16
[2019-06-01 06:11] LABS: Calcium 9.1 mg/dL (8.4-10.2)
[2019-06-01] MEDS: FUROSEMIDE 40 MG/4 ML INJ IV SCH ×2 (06:18→18:08)
[2019-06-01] MEDS ORDERED: IPRATROPIUM/ALBUTEROL SULFATE 3 ML AMPUL.NEB IH PRN (06:49)
[2019-06-01] MEDS: IPRATROPIUM/ALBUTEROL SULFATE 3 ML AMPUL.NEB IH SCH ×4 (08:13→19:15)
--- NOTE | 2019-06-01 09:57 | Consultation ---
History of Present Illness Consult date: 06/01/19 Consult reason: congestive heart failure History of present illness: Patient is a 58-year who presented with complaints of lower extremity edema and shortness of breath. Noted hypoxic on presentation, O2 saturation at 85%. Further evaluation with a chest x-ray revealed left lower lobe pneumonia. A cardiac consultation has been requested for CHF evaluation. Patient is a poor historian but he denies prior cardiac history and had no recent cardiac workup. He is [facility] by [facility]. Admits to noncompliance with his medications. Medications and Allergies Allergies Allergy/AdvReac Type Severity Reaction Status Date / Time Unable to Assess Allergy Unverified 05/31/19 07:56 Active Meds: Active Medications Albuterol/Ipratropium (Duoneb *Not For Prn Use*) 1 ampul IH QIDRT [facility] Last Admin: 06/01/19 08:13 Dose: 1 ampul Documented by: Albuterol/Ipratropium (Duoneb *Not For Prn Use*) 1 ampul IH Q3H PRN PRN Reason: Wheezing Furosemide (Lasix) 40 mg IV 0600,1800 [facility] Last Admin: 06/01/19 06:18 Dose: 40 mg Documented by: Glimepiride (Amaryl) 2 mg PO QDDIAB [facility] Heparin Sodium (Porcine) (Heparin) 5,000 unit SUB-Q Q12HR [facility] Last Admin: 05/31/19 23:51 Dose: Not Given Documented by: Hydromorphone HCl (Dilaudid) 0.5 mg IV Q3H PRN PRN Reason: Pain , Severe (7-10) Ceftriaxone Sodium (Rocephin/Ns 2 Gm/100 Ml) 2 gm in 100 mls @ 200 mls/hr IV Q24HR [facility]; Protocol Azithromycin 500 mg/ Sodium (Chloride) 250 mls @ 250 mls/hr IV Q24HR SHANEL; [place] col Insulin Human Lispro (Humalog) 0 unit SUB-Q ACHS [facility]; Protocol Last Admin: 05/31/19 23:46 Dose: 8 unit Documented by: Metformin HCl (Glucophage) 500 mg PO BIDDIAB [facility] Metoclopramide HCl (Reglan) 10 mg IV Q6H PRN PRN Reason: Nausea And Vomiting Ondansetron HCl (Zofran) 4 mg IV Q8H PRN PRN Reason: Nausea And Vomiting Oxycodone/Acetaminophen (Percocet 5/325) 1 tab PO Q6H PRN PRN Reason: Pain, Moderate (4-6) Potassium Chloride (K-Dur) 20 meq PO BID [facility] Last Admin: 05/31/19 23:51 Dose: Not Given Documented by: Sodium Chloride (Sodium Chloride Flush Syringe 10 Ml) 10 ml IV BID [facility] Last Admin: 05/31/19 23:50 Dose: 10 ml Documented by: Sodium Chloride (Sodium Chloride Flush Syringe 10 Ml) 10 ml IV PRN PRN PRN Reason: LINE FLUSH Physical Examination Vital Signs Temp Pulse Resp BP Pulse Ox 97.6 F 100 H 30 H 109/54 97 05/31/19 07:43 05/31/19 07:43 05/31/19 07:43 05/31/19 07:43 05/31/19 07:43 General appearance: no acute distress HEENT: Positive: PERRL Neck: Positive: trachea midline Cardiac: Positive: Reg Rate and Rhythm Lungs: Positive: Decreased Breath Sounds Neuro: Positive: Grossly Intact Extremities: Present: +1 Edema Results 06/01/19 03:51 06/01/19 03:51 Cardiac Enzymes 05/31/19 06/01/19 Range/Units 08:59 03:51 AST 27 29 (5-40) units/L CK-MB (CK-2) < 1.0 (0.0-4.0) ng/mL Coagulation 05/31/19 Range/Units 12:21 PT 14.1 (12.2-14.9) Sec. INR 1.10 (0.87-1.13) APTT 41.1 H (24.2-36.6) Sec. CBC 05/31/19 06/01/19 Range/Units 12:21 03:51 WBC 7.0 (4.5-11.0) K/mm3 RBC 3.57 L (3.65-5.03) M/mm3 Hgb 9.1 L 9.0 L (11.8-15.2) gm/dl Hct 29.6 L 29.0 L (35.5-45.6) % Plt Count 375 411 (140-440) K/mm3 Lymph # 1.2 (1.2-5.4) K/mm3 [place] # 1.0 H (0.0-0.8) K/mm3 Eos # 0.5 H (0.0-0.4) K/mm3 Baso # 0.1 (0.0-0.1) K/mm3 Comprehensive Metabolic Panel 05/31/19 06/01/19 Range/Units 08:59 03:51 Sodium 142 142 (137-145) mmol/L Potassium 5.4 H 4.7 (3.6-5.0) mmol/L Chloride 106.2 101.5 (98-107) mmol/L Carbon Dioxide 19 L 29 D (22-30) mmol/L BUN 13 12 (9-20) mg/dL Creatinine 1.0 1.0 (0.8-1.5) mg/dL Glucose 304 H 374 H (75-100) mg/dL Calcium 8.8 9.1 (8.4-10.2) mg/dL Direct Bilirubin < 0.2 (0-0.2) mg/dL Indirect Bilirubin 0.0 mg/dL AST 27 29 (5-40) units/L ALT 22 22 (7-56) units/L Alkaline Phosphatase 103 106 (35-129) units/L Total Protein 7.0 7.8 (6.3-8.2) g/dL Albumin 3.1 L 3.3 L (3.9-5) g/dL Assessment and Plan Pneumonia Hypoxia Hypertension Anemia Diabetes We will obtain an echocardiogram for LVEF assessment.
[2019-06-01] MEDS: GLIMEPIRIDE 2 MG TAB PO SCH (10:02)
[2019-06-01] MEDS: cefTRIAXone/NS 2 GM/100 ML 2 GM/100 ML BAG IV SCH (10:02)
[2019-06-01] MEDS: POTASSIUM CHLORIDE ER 20 MEQ TAB PO SCH ×2 (10:02→22:53)
[2019-06-01] MEDS: metFORMIN 500 MG TAB PO SCH ×2 (10:03→18:09)
[2019-06-01] MEDS: INSULIN LISPRO 100 UNIT/ML SUB-Q SCH ×4 (10:03→22:52)
[2019-06-01] MEDS: HEPARIN 5,000 UNIT/1 ML VIAL SUB-Q SCH ×2 (10:04→22:53)
[2019-06-01] MEDS: AZITHROMYCIN 500 MG in SODIUM CHLORIDE 0.9% 250ML 250 ML IV SCH (10:06)
[2019-06-01] MEDS ORDERED: INSULIN REGULAR, HUMAN 100 UNITS/1 ML SUB-Q ONE (11:54)
--- NOTE | 2019-06-01 15:51 | Vascular Lab Report ---
. DUPLEX DOPPLER LOWER EXTREMITY VEINS, BILATERAL INDICATION: dvt. Bilateral lower extremity pain TECHNIQUE: Duplex doppler imaging was performed through the veins of both lower extremities using ve nous compression and other maneuvers. COMPARISON: No relevant prior imaging study available. FINDINGS: Right Common femoral vein: Negative. Right Superficial femoral vein: Negative. Right Popliteal vein: Negative. Right Calf veins: Negative. Left Common femoral vein: Negative. Left Superficial femoral vein: Negative. Left Popliteal vein: Negative. Left Calf veins: Negative. Additional findings: A focal superficial venous thrombosis is noted in a short segment of the right g reater saphenous vein in the proximal calf. IMPRESSION: No evidence for deep venous thrombosis. Superficial venous thrombosis in the right greater saphenous vein as described. Signer Name: Raymundo Choi Jr, MD Signed: 06/01/2019 3:46 PM Workstation Name: [id number]
[2019-06-01] MEDS ORDERED: ALBUTEROL 2.5 MG/3 ML NEBU IH PRN (16:19)
--- NOTE | 2019-06-01 17:31 | Progress Note ---
Assessment and Plan Assessment and plan: 58-year-old pleasant gentleman comes in for bilateral lower extremity swelling for one week and increasing sob for one week. Cough non productive. Patient has orthopnea. Also class IV NYHA symptoms.No fever or chills. Initial room air sats 85 percent . (1) Acute respiratory failure Current Visit: Yes Status: Acute Qualifiers: Respiratory failure complication: hypoxia Qualified Code(s): J96.01 - Acute respiratory failure with hypoxia Plan to address problem: Cont O2 and Bipap as necessary. IV abx IV Solumedrol and Duonebs (2) Bilateral pneumonia Current Visit: Yes Status: Acute Qualifiers: Lung location: unspecified part of lung Plan to address problem: IV abx and Duonebs for now (3) Exacerbation of CHF (congestive heart failure) Current Visit: Yes Status: Acute Qualifiers: Heart failure type: combined systolic and diastolic Qualified Code(s): I50.43 - Acute on chronic combined systolic (congestive) and diastolic (congestive) heart failure Plan to address problem: On IV Lasix Discussed with cardiology, NO clear evidence of acute heart failure exacerbation (4) T2DM (type 2 diabetes mellitus) Current Visit: Yes Status: Chronic Qualifiers: Diabetes mellitus fci insulin use: unspecified [employer] insulin use status Plan to address problem: Cont coverage Initiate Metformin and Glimepiride increase insulin for better control Check A1c (5) HTN (hypertension) Current Visit: Yes Status: Chronic Qualifiers: Hypertension type: essential hypertension Qualified Code(s): I10 - Essential (primary) hypertension Plan to address problem: Cont antihypertensives (6) JOE (obstructive sleep apnea) Current Visit: Yes Status: Chronic Plan to address problem: Cont CPAP (7) DVT prophylaxis Current Visit: Yes Status: Acute Plan to address problem: On Heparin and GI prophylaxis History Interval history: Patient seen and examined, reports improvement in respiratory symptoms, no chest pain, nausea or vomiting. Reports persistent bilateral Leg swelling. Hospitalist Physical - Physical exam Narrative exam: General appearance: Present: No distress, well-nourished - EENT Eyes: Present: PERRL ENT: hearing intact, clear oral mucosa - Neck Neck: Present: supple, normal ROM - Respiratory Respiratory effort: normal Respiratory: bilateral: diminished, rhonchi, wheezing - Cardiovascular Heart rate: 78 Rhythm: regular Heart Sounds: Present: S1 & S2. Absent: rub, click - Extremities Extremities: no ischemia, pulses intact, pulses symmetrical, Extremity abnormal: edema (4 plus) Peripheral Pulses: within normal limits - Abdominal General gastrointestinal: Present: soft, non-tender, non-distended, normal bowel sounds Male genitourinary: Present: normal - Integumentary Integumentary: Present: chronic changes in the lower ext, edema trace bilateral - Musculoskeletal Musculoskeletal: gait normal, strength equal bilaterally - Psychiatric Psychiatric: appropriate mood/affect, intact judgment & insight - Neurologic Neurologic: CNII-XII intact, moves all extremities - Constitutional Vitals: Temp Pulse Resp BP Pulse Ox 98.2 F 109 H 20 99/55 94 06/01/19 15:48 06/01/19 16:15 06/01/19 16:15 06/01/19 15:48 06/01/19 16:18 General appearance: Present: no acute distress Results - Labs CBC & Chem 7: 06/01/19 03:51 06/01/19 03:51 Labs: Laboratory Last Values WBC 7.0 K/mm3 (4.5-11.0) 06/01/19 03:51 RBC 3.57 M/mm3 (3.65-5.03) L 06/01/19 03:51 Hgb 9.0 gm/dl (11.8-15.2) L 06/01/19 03:51 Hct 29.0 % (35.5-45.6) L 06/01/19 03:51 MCV 81 fl (84-94) L 06/01/19 03:51 MCH 25 pg (28-32) L 06/01/19 03:51 MCHC 31 % (32-34) L 06/01/19 03:51 RDW 17.9 % (13.2-15.2) H 06/01/19 03:51 Plt Count 411 K/mm3 (140-440) 06/01/19 03:51 Lymph % (Auto) 16.5 % (13.4-35.0) 06/01/19 03:51 [place] % (Auto) 13.9 % (0.0-7.3) H 06/01/19 03:51 Eos % (Auto) 6.7 % (0.0-4.3) H 06/01/19 03:51 Baso % (Auto) 0.8 % (0.0-1.8) 06/01/19 03:51 Lymph # 1.2 K/mm3 (1.2-5.4) 06/01/19 03:51 [place] # 1.0 K/mm3 (0.0-0.8) H 06/01/19 03:51 Eos # 0.5 K/mm3 (0.0-0.4) H 06/01/19 03:51 Baso # 0.1 K/mm3 (0.0-0.1) 06/01/19 03:51 Add Manual Diff Complete 05/31/19 08:59 Total Counted 100 05/31/19 08:59 Seg Neutrophils % 62.1 % (40.0-70.0) 06/01/19 03:51 Seg Neuts % (Manual) 67.0 % (40.0-70.0) 05/31/19 08:59 Band Neutrophils % 0 % 05/31/19 08:59 Lymphocytes % (Manual) 14.0 % (13.4-35.0) 05/31/19 08:59 Reactive Lymphs % (Man) 0 % 05/31/19 08:59 Monocytes % (Manual) 11.0 % (0.0-7.3) H 05/31/19 08:59 Eosinophils % (Manual) 8.0 % (0.0-4.3) H 05/31/19 08:59 Basophils % (Manual) 0 % (0.0-1.8) 05/31/19 08:59 Metamyelocytes % 0 % 05/31/19 08:59 Myelocytes % 0 % 05/31/19 08:59 Promyelocytes % 0 % 05/31/19 08:59 Blast Cells % 0 % 05/31/19 08:59 Nucleated RBC % Not Reportable 05/31/19 08:59 Seg Neutrophils # 4.3 K/mm3 (1.8-7.7) 06/01/19 03:51 Seg Neutrophils # Man 5.0 K/mm3 (1.8-7.7) 05/31/19 08:59 Band Neutrophils # 0.0 K/mm3 05/31/19 08:59 Lymphocytes # (Manual) 1.1 K/mm3 (1.2-5.4) L 05/31/19 08:59 Abs React Lymphs (Man) 0.0 K/mm3 05/31/19 08:59 Monocytes # (Manual) 0.8 K/mm3 (0.0-0.8) 05/31/19 08:59 Eosinophils # (Manual) 0.6 K/mm3 (0.0-0.4) H 05/31/19 08:59 Basophils # (Manual) 0.0 K/mm3 (0.0-0.1) 05/31/19 08:59 Metamyelocytes # 0.0 K/mm3 05/31/19 08:59 Myelocytes # 0.0 K/mm3 05/31/19 08:59 Promyelocytes # 0.0 K/mm3 05/31/19 08:59 Blast Cells # 0.0 K/mm3 05/31/19 08:59 WBC Morphology Not Reportable 05/31/19 08:59 Hypersegmented Neuts Not Reportable 05/31/19 08:59 Hyposegmented Neuts Not Reportable 05/31/19 08:59 Hypogranular Neuts Not Reportable 05/31/19 08:59 Smudge Cells Not Reportable 05/31/19 08:59 Toxic Granulation Not Reportable 05/31/19 08:59 Toxic Vacuolation Not Reportable 05/31/19 08:59 Dohle Bodies Not Reportable 05/31/19 08:59 Pelger-Huet Anomaly Not Reportable 05/31/19 08:59 Mervin Rods Not Reportable 05/31/19 08:59 Platelet Estimate Consistent w auto 05/31/19 08:59 Clumped Platelets Not Reportable 05/31/19 08:59 Plt Clumps, EDTA Not Reportable 05/31/19 08:59 Large Platelets Not Reportable 05/31/19 08:59 Giant Platelets Not Reportable 05/31/19 08:59 Platelet Satelliting Not Reportable 05/31/19 08:59 Plt Morphology Comment Not Reportable 05/31/19 08:59 RBC Morphology Not Reportable 05/31/19 08:59 Dimorphic RBCs Not Reportable 05/31/19 08:59 Polychromasia Not Reportable 05/31/19 08:59 Hypochromasia 1+ 05/31/19 08:59 Poikilocytosis Few 05/31/19 08:59 Anisocytosis Few 05/31/19 08:59 Microcytosis Not Reportable 05/31/19 08:59 Macrocytosis Not Reportable 05/31/19 08:59 Spherocytes Not Reportable 05/31/19 08:59 Pappenheimer Bodies Not Reportable 05/31/19 08:59 Sickle Cells Not Reportable 05/31/19 08:59 Target Cells Not Reportable 05/31/19 08:59 Tear Drop Cells Not Reportable 05/31/19 08:59 Ovalocytes Few 05/31/19 08:59 Helmet Cells Not Reportable 05/31/19 08:59 Brink-Gideon Bodies Not Reportable 05/31/19 08:59 Lamont Rings Not Reportable 05/31/19 08:59 Ileana Cells Not Reportable 05/31/19 08:59 Bite Cells Not Reportable 05/31/19 08:59 Crenated Cell Not Reportable 05/31/19 08:59 Elliptocytes Rare 05/31/19 08:59 Acanthocytes (Spur) Not Reportable 05/31/19 08:59 Rouleaux Not Reportable 05/31/19 08:59 Hemoglobin C Crystals Not Reportable 05/31/19 08:59 Schistocytes Not Reportable 05/31/19 08:59 Malaria parasites Not Reportable 05/31/19 08:59 Gianni Bodies Not Reportable 05/31/19 08:59 Hem Pathologist Commnt No 05/31/19 08:59 PT 14.1 Sec. (12.2-14.9) 05/31/19 12:21 INR 1.10 (0.87-1.13) 05/31/19 12:21 APTT 41.1 Sec. (24.2-36.6) H 05/31/19 12:21 D-Dimer 4262.71 ng/mlDDU (0-234) H 05/31/19 08:59 Heparin Anti-Xa Level < 0.10 U.I./ml (0.3-0.7) L 06/01/19 05:43 Sodium 142 mmol/L (137-145) 06/01/19 03:51 Potassium 4.7 mmol/L (3.6-5.0) 06/01/19 03:51 Chloride 101.5 mmol/L (98-107) 06/01/19 03:51 Carbon Dioxide 29 mmol/L (22-30) D 06/01/19 03:51 Anion Gap 16 mmol/L 06/01/19 03:51 BUN 12 mg/dL (9-20) 06/01/19 03:51 Creatinine 1.0 mg/dL (0.8-1.5) 06/01/19 03:51 Estimated GFR > 60 ml/min 06/01/19 03:51 BUN/Creatinine Ratio 12 % 06/01/19 03:51 Glucose 374 mg/dL (75-100) H 06/01/19 03:51 POC Glucose 290 (70-105) H 06/01/19 15:55 Hemoglobin A1c 11.2 % (4-6) H 05/31/19 19:22 Calcium 9.1 mg/dL (8.4-10.2) 06/01/19 03:51 Magnesium 1.70 mg/dL (1.7-2.3) 05/31/19 08:59 Total Bilirubin 0.20 mg/dL (0.1-1.2) 06/01/19 03:51 Direct Bilirubin < 0.2 mg/dL (0-0.2) 05/31/19 08:59 Indirect Bilirubin 0.0 mg/dL 05/31/19 08:59 AST 29 units/L (5-40) 06/01/19 03:51 ALT 22 units/L (7-56) 06/01/19 03:51 Alkaline Phosphatase 106 units/L (35-129) 06/01/19 03:51 Total Creatine Kinase 35 units/L (55-170) L 05/31/19 08:59 CK-MB (CK-2) < 1.0 ng/mL (0.0-4.0) 05/31/19 08:59 CK-MB (CK-2) Rel Index 2.8 (0-4) 05/31/19 08:59 Troponin T < 0.010 ng/mL (0.00-0.029) 05/31/19 08:59 NT-Pro-B Natriuret Pep 305.5 pg/mL (0-900) 05/31/19 08:59 Total Protein 7.8 g/dL (6.3-8.2) 06/01/19 03:51 Albumin 3.3 g/dL (3.9-5) L 06/01/19 03:51 Albumin/Globulin Ratio 0.7 % 06/01/19 03:51 Urine Color Yellow (Yellow) 05/31/19 Unknown Urine Turbidity Clear (Clear) 05/31/19 Unknown Urine pH 6.0 (5.0-7.0) 05/31/19 Unknown Ur Specific [place] 1.010 (1.003-1.030) 05/31/19 Unknown Urine Protein 30 mg/dl mg/dL (Negative) 05/31/19 Unknown Urine Glucose (UA) Negative mg/dL (Negative) 05/31/19 Unknown Urine Ketones Negative mg/dL (Negative) 05/31/19 Unknown Urine Blood Negative (Negative) 05/31/19 Unknown Urine Nitrite Negative (Negative) 05/31/19 Unknown Ur Reducing Substances Not Reportable 05/31/19 Unknown Urine Bilirubin Negative (Negative) 05/31/19 Unknown Urine Ictotest Not Reportable 05/31/19 Unknown Urine Urobilinogen 0.0 mg/dL (<2.0) 05/31/19 Unknown Ur Leukocyte Esterase Negative (Negative) 05/31/19 Unknown Urine WBC (Auto) < 1.0 /HPF (0.0-6.0) 05/31/19 Unknown Urine RBC (Auto) < 1.0 /HPF (0.0-6.0) 05/31/19 Unknown U Epithel Cells (Auto) 1.0 /HPF (0-13.0) 05/31/19 Unknown Urine Bacteria (Auto) 1+ /HPF (Negative) 05/31/19 Unknown Urine Mucus Few /HPF 05/31/19 Unknown Blood Type A POSITIVE 05/31/19 12:21 Antibody Screen Negative 05/31/19 12:21 Active Medications - Current Medications Current Medications: Generic Name Dose Route Start Last Admin Trade Name Freq PRN Reason Stop Dose Admin Albuterol 2.5 mg 06/01/19 16:19 Proventil IH Q4HRT PRN Shortness Of Breath Albuterol/Ipratropium 1 ampul 06/01/19 20:00 Duoneb *Not For Prn Use* IH TIDRT SHANEL Furosemide 40 mg 06/01/19 06:00 06/01/19 06:18 Lasix IV 40 mg 0600,1800 SHANEL Administration Glimepiride 2 mg 06/01/19 08:00 06/01/19 10:02 Amaryl PO 2 mg QDDIAB SHANEL Administration Heparin Sodium (Porcine) 5,000 unit 05/31/19 22:00 06/01/19 10:04 Heparin SUB-Q 5,000 unit Q12HR SHANEL Administration Hydromorphone HCl 0.5 mg 05/31/19 18:40 Dilaudid IV Q3H PRN Pain , Severe (7-10) Ceftriaxone Sodium 2 gm in 100 mls @ 200 mls/hr 06/01/19 10:00 06/01/19 10:02 Rocephin/Ns 2 Gm/100 Ml IV 200 mls/hr Q24HR SHANEL Administration Protocol Azithromycin 500 mg/ Sodium 250 mls @ 250 mls/hr 06/01/19 10:00 06/01/19 10:06 Chloride IV 250 mls/hr Q24HR SHANEL Administration Protocol Insulin Human Lispro 0 unit 05/31/19 23:30 06/01/19 13:18 Humalog SUB-Q 8 unit ACHS SHANEL Administration Protocol Metformin HCl 500 mg 06/01/19 08:00 06/01/19 10:03 Glucophage PO 500 mg BIDDIAB SHANEL Administration Metoclopramide HCl 10 mg 05/31/19 18:40 Reglan IV Q6H PRN Nausea And Vomiting Ondansetron HCl 4 mg 05/31/19 18:40 Zofran IV Q8H PRN Nausea And Vomiting Oxycodone/Acetaminophen 1 tab 05/31/19 18:40 Percocet 5/325 PO Q6H PRN Pain, Moderate (4-6) Potassium Chloride 20 meq 05/31/19 22:00 06/01/19 10:02 K-Dur PO 20 meq BID SHANEL Administration Sodium Chloride 10 ml 05/31/19 22:00 06/01/19 10:03 Sodium Chloride Flush Syringe 10 Ml IV 10 ml BID SHANEL Administration Sodium Chloride 10 ml 05/31/19 18:40 Sodium Chloride Flush Syringe 10 Ml IV PRN PRN LINE FLUSH
[2019-06-02 04:34] LABS: Hematocrit 31.5 % (35.5-45.6); Hemoglobin 9.5 gm/dl (11.8-15.2); Mean Corpuscular HGB Conc 30 % (32-34); Mean Corpuscular Volume 83 fl (84-94); Platelet Count 396 K/mm3 (140-440); Red Blood Count 3.79 M/mm3 (3.65-5.03); Red Cell Distribution Width 18.4 % (13.2-15.2)
[2019-06-02 05:03] LABS: Calcium 9.2 mg/dL (8.4-10.2)
[2019-06-02] MEDS: FUROSEMIDE 40 MG/4 ML INJ IV SCH ×2 (06:23→18:14)
[2019-06-02] MEDS: IPRATROPIUM/ALBUTEROL SULFATE 3 ML AMPUL.NEB IH SCH ×3 (07:49→19:27)
[2019-06-02] MEDS: GLIMEPIRIDE 2 MG TAB PO SCH (09:32)
[2019-06-02] MEDS: cefTRIAXone/NS 2 GM/100 ML 2 GM/100 ML BAG IV SCH (09:33)
[2019-06-02] MEDS: INSULIN LISPRO 100 UNIT/ML SUB-Q SCH ×3 (09:33→18:14)
[2019-06-02] MEDS: metFORMIN 500 MG TAB PO SCH ×2 (09:33→18:14)
[2019-06-02] MEDS: HEPARIN 5,000 UNIT/1 ML VIAL SUB-Q SCH ×2 (09:33→21:51)
[2019-06-02] MEDS: AZITHROMYCIN 500 MG in SODIUM CHLORIDE 0.9% 250ML 250 ML IV SCH (09:36)
--- NOTE | 2019-06-02 11:07 | Progress Note ---
<VIANCA SCOTT - Last Filed: 06/02/19 11:04> Assessment and Plan Pneumonia Generalized edema Normal NT-proBNP Normal LVEF and filling pressures by echo No evidence of JVD or CHF on exam Hypoxia Hypertension Anemia Diabetes No further cardiac workup indicated. We will sign off. Subjective Date of service: 06/02/19 Interval history: Patient has no cardiac complaints. No cardiac events reported overnight. Objective Vital Signs Temp Pulse Pulse Resp Resp BP Pulse Ox 06/02/19 07:39 98.0 F 106 H 20 114/61 91 06/02/19 04:45 98.0 F 100 H 18 118/57 87 06/02/19 00:31 20 06/02/19 00:17 98.4 F 99 H 20 102/53 92 06/01/19 20:45 104 H 06/01/19 19:36 98.2 F 104 H 18 104/56 96 06/01/19 19:24 107 H 18 06/01/19 19:16 97 06/01/19 16:18 94 06/01/19 16:15 109 H 20 06/01/19 15:48 98.2 F 108 H 20 99/55 95 06/01/19 12:00 22 06/01/19 11:49 98.0 F 111 H 20 110/66 92 06/01/19 11:40 112 H 20 - Physical Examination General: No Apparent Distress HEENT: Positive: PERRL Neck: Positive: trachea midline Cardiac: Positive: Reg Rate and Rhythm Lungs: Positive: Decreased Breath Sounds Neuro: Positive: Grossly Intact Extremities: Present: +1 Edema - Labs and Meds CBC 06/02/19 Range/Units 03:10 WBC 7.0 (4.5-11.0) K/mm3 RBC 3.79 (3.65-5.03) M/mm3 Hgb 9.5 L (11.8-15.2) gm/dl Hct 31.5 L (35.5-45.6) % Plt Count 396 (140-440) K/mm3 Comprehensive Metabolic Panel 06/02/19 Range/Units 03:10 Sodium 148 H (137-145) mmol/L Potassium 5.0 (3.6-5.0) mmol/L Chloride 103.9 (98-107) mmol/L Carbon Dioxide 27 (22-30) mmol/L BUN 17 (9-20) mg/dL Creatinine 1.8 H D (0.8-1.5) mg/dL Glucose 159 H (75-100) mg/dL Calcium 9.2 (8.4-10.2) mg/dL <KYLAH GALE - Last Filed: 06/02/19 12:07> Assessment and Plan I've seen and evaluated the patient and agree with the assessment and plan as stated above. Patient's echocardiogram shows normal left ventricular ejection fraction without diastolic dysfunction. No further cardiac recommendations at this time. Thank you for the consult. Please reconsult as needed. Objective Vital Signs Temp Pulse Pulse Resp Resp BP Pulse Ox 06/02/19 11:11 98.0 F 108 H 18 111/48 94 06/02/19 07:39 98.0 F 106 H 20 114/61 91 06/02/19 04:45 98.0 F 100 H 18 118/57 87 06/02/19 00:31 20 06/02/19 00:17 98.4 F 99 H 20 102/53 92 06/01/19 20:45 104 H 06/01/19 19:36 98.2 F 104 H 18 104/56 96 06/01/19 19:24 107 H 18 06/01/19 19:16 97 06/01/19 16:18 94 06/01/19 16:15 109 H 20 06/01/19 15:48 98.2 F 108 H 20 99/55 95 - Labs and Meds CBC 06/02/19 Range/Units 03:10 WBC 7.0 (4.5-11.0) K/mm3 RBC 3.79 (3.65-5.03) M/mm3 Hgb 9.5 L (11.8-15.2) gm/dl Hct 31.5 L (35.5-45.6) % Plt Count 396 (140-440) K/mm3 Comprehensive Metabolic Panel 06/02/19 Range/Units 03:10 Sodium 148 H (137-145) mmol/L Potassium 5.0 (3.6-5.0) mmol/L Chloride 103.9 (98-107) mmol/L Carbon Dioxide 27 (22-30) mmol/L BUN 17 (9-20) mg/dL Creatinine 1.8 H D (0.8-1.5) mg/dL Glucose 159 H (75-100) mg/dL Calcium 9.2 (8.4-10.2) mg/dL
--- NOTE | 2019-06-02 11:39 | Discharge Summary ---
Providers - Providers Date of Admission: 05/31/19 18:40 Attending physician: TRINY SHANNON MD 05/31/19 12:20 Midline [Consult to PICC Line RN] [CONS] Stat Reason For Exam: DIFFICULTLY W/ IV Type Line:: Midline 05/31/19 18:40 Consult to Physician [CONS] Routine Comment: Consulting Provider: KELLY TREJO Physician Instructions: Reason For Exam: CHF 06/01/19 11:12 Physical Therapy Evaluation and Treat [CONS] Routine Comment: Reason For Exam: ataxia [facility] Hospital course: 58-year-old pleasant gentleman comes in for bilateral lower extremity swelling for one week and increasing sob for one week. Cough non productive. Patient has orthopnea. Also class IV NYHA symptoms.No fever or chills. Initial room air sats 85 percent . (1) Acute respiratory failure Current Visit: Yes Status: Acute Qualifiers: Respiratory failure complication: hypoxia Qualified Code(s): J96.01 - Acute respiratory failure with hypoxia Plan to address problem: Cont O2 and Bipap as necessary. IV abx IV Solumedrol and Duonebs (2) Bilateral pneumonia Current Visit: Yes Status: Acute Qualifiers: Lung location: unspecified part of lung Plan to address problem: IV abx and Duonebs for now (3) Exacerbation of CHF (congestive heart failure) Current Visit: Yes Status: Acute Qualifiers: Heart failure type: combined systolic and diastolic Qualified Code(s): I50.43 - Acute on chronic combined systolic (congestive) and diastolic (congestive) heart failure Plan to address problem: On IV Lasix Discussed with cardiology, NO clear evidence of acute heart failure exacerbation (4) T2DM (type 2 diabetes mellitus) Current Visit: Yes Status: Chronic Qualifiers: Diabetes mellitus custodial insulin use: unspecified custodial insulin use status Plan to address problem: Cont coverage Initiate Metformin and Glimepiride increase insulin for better control Check A1c (5) HTN (hypertension) Current Visit: Yes Status: Chronic Qualifiers: Hypertension type: essential hypertension Qualified Code(s): I10 - Essential (primary) hypertension Plan to address problem: Cont antihypertensives (6) JOE (obstructive sleep apnea) Current Visit: Yes Status: Chronic Plan to address problem: Cont CPAP Proteniuria - outpatient Nephrology eval - discussed with INSURANCE COMPANY, THEY WILL FOLLOW UP WITH PATIENT Disposition: DC/[place]-06 HOME UNDER HOME [facility] Time spent for discharge: 35 MINS Exam - Constitutional Vitals: Temp Pulse Resp BP Pulse Ox 98.0 F 108 H 18 111/48 94 06/02/19 11:11 06/02/19 11:11 06/02/19 11:11 06/02/19 11:11 06/02/19 11:11 Plan Activity: advance as tolerated, fall precautions Diet: low fat, diabetic Special Instructions: record daily BP diary, record blood sugar diary Additional Inst[facility] [Primary Care Provider] - 3-5 Days AUGUST ARAIZA MD [Staff Physician] - 7 Days Prescriptions: Glimepiride [Amaryl] 2 mg PO QDDIAB #30 tablet metFORMIN [Glucophage] 500 mg PO BIDDIAB #30 tablet Furosemide [Lasix TAB] 40 mg PO QDAY #30 tablet Ipratropium/Albuterol Sulfate [DUONEB *Not for PRN Use*] 1 ampul IH TIDRT #90 ampul.neb
--- NOTE | 2019-06-02 18:33 | Progress Note ---
Assessment and Plan Assessment and plan: 58-year-old pleasant gentleman comes in for bilateral lower extremity swelling for one week and increasing sob for one week. Cough non productive. Patient has orthopnea. Also class IV NYHA symptoms.No fever or chills. Initial room air sats 85 percent . (1) Acute respiratory failure with Hypoxia Current Visit: Yes Status: Acute Qualifiers: Respiratory failure complication: hypoxia Qualified Code(s): J96.01 - Acute respiratory failure with hypoxia Plan to address problem: Cont O2 and Bipap as necessary. IV abx IV Solumedrol and Duonebs Pulmonary consult (2) Bilateral pneumonia Current Visit: Yes Status: Acute Qualifiers: Lung location: unspecified part of lung Plan to address problem: IV abx and Duonebs for now (3) Exacerbation of CHF (congestive heart failure) Current Visit: Yes Status: Acute Qualifiers: Heart failure type: combined systolic and diastolic Qualified Code(s): I50.43 - Acute on chronic combined systolic (congestive) and diastolic (congestive) heart failure Plan to address problem: On IV Lasix Discussed with cardiology, NO clear evidence of acute heart failure exacerbation (4) T2DM (type 2 diabetes mellitus) Current Visit: Yes Status: Chronic Qualifiers: 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 nursing insulin use status Plan to address problem: Cont coverage Initiate Metformin and Glimepiride increase insulin for better control c (5) HTN (hypertension) Current Visit: Yes Status: Chronic Qualifiers: Hypertension type: essential hypertension Qualified Code(s): I10 - Es sential (primary) hypertension Plan to address problem: Cont antihypertensives (6) JOE (obstructive sleep apnea) Current Visit: Yes Status: Chronic Plan to address problem: Cont CPAP (7) DVT prophylaxis Current Visit: Yes Status: Acute Plan to address problem: On Heparin and GI prophylaxis Discharge when hypoxia imprves History Interval history: Patient seen and examined, reports improvement in respiratory symptoms, no chest pain, nausea or vomiting. still with lower ext edema, on ambulation in preparation for discharge, patient desaturated to 85% on 3 liters nasal cannular. Discharge held Hospitalist Physical - Physical exam Narrative exam: General appearance: Present: No distress, well-nourished - EENT Eyes: Present: PERRL ENT: hearing intact, clear oral mucosa - Neck Neck: Present: supple, normal ROM - Respiratory Respiratory effort: normal Respiratory: bilateral: diminished, rhonchi, wheezing - Cardiovascular Heart rate: 78 Rhythm: regular Heart Sounds: Present: S1 & S2. Absent: rub, click - Extremities Extremities: no ischemia, pulses intact, pulses symmetrical, Extremity abnormal: edema (3plus) Peripheral Pulses: within normal limits - Abdominal General gastrointestinal: Present: soft, non-tender, non-distended, normal bowel sounds Male genitourinary: Present: normal - Integumentary Integumentary: Present: chronic changes in the lower ext, edema trace bilateral - Musculoskeletal Musculoskeletal: gait normal, strength equal bilaterally - Psychiatric Psychiatric: appropriate mood/affect, intact judgment & insight - Neurologic Neurologic: CNII-XII intact, moves all extremities - Constitutional Vitals: Temp Pulse Resp BP Pulse Ox 98.4 F 100 H 20 96/50 94 06/02/19 15:38 06/02/19 15:38 06/02/19 15:38 06/02/19 15:38 06/02/19 15:38 General appearance: Present: no acute distress Results - Labs CBC & Chem 7: 06/02/19 03:10 06/02/19 03:10 Labs: Laboratory Last Values WBC 7.0 K/mm3 (4.5-11.0) 06/02/19 03:10 RBC 3.79 M/mm3 (3.65-5.03) 06/02/19 03:10 Hgb 9.5 gm/dl (11.8-15.2) L 06/02/19 03:10 Hct 31.5 % (35.5-45.6) L 06/02/19 03:10 MCV 83 fl (84-94) L 06/02/19 03:10 MCH 25 pg (28-32) L 06/02/19 03:10 MCHC 30 % (32-34) L 06/02/19 03:10 RDW 18.4 % (13.2-15.2) H 06/02/19 03:10 Plt Count 396 K/mm3 (140-440) 06/02/19 03:10 Lymph % (Auto) 16.5 % (13.4-35.0) 06/01/19 03:51 [place] % (Auto) 13.9 % (0.0-7.3) H 06/01/19 03:51 Eos % (Auto) 6.7 % (0.0-4.3) H 06/01/19 03:51 Baso % (Auto) 0.8 % (0.0-1.8) 06/01/19 03:51 Lymph # 1.2 K/mm3 (1.2-5.4) 06/01/19 03:51 [place] # 1.0 K/mm3 (0.0-0.8) H 06/01/19 03:51 Eos # 0.5 K/mm3 (0.0-0.4) H 06/01/19 03:51 Baso # 0.1 K/mm3 (0.0-0.1) 06/01/19 03:51 Add Manual Diff Complete 05/31/19 08:59 Total Counted 100 05/31/19 08:59 Seg Neutrophils % 62.1 % (40.0-70.0) 06/01/19 03:51 Seg Neuts % (Manual) 67.0 % (40.0-70.0) 05/31/19 08:59 Band Neutrophils % 0 % 05/31/19 08:59 Lymphocytes % (Manual) 14.0 % (13.4-35.0) 05/31/19 08:59 Reactive Lymphs % (Man) 0 % 05/31/19 08:59 Monocytes % (Manual) 11.0 % (0.0-7.3) H 05/31/19 08:59 Eosinophils % (Manual) 8.0 % (0.0-4.3) H 05/31/19 08:59 Basophils % (Manual) 0 % (0.0-1.8) 05/31/19 08:59 Metamyelocytes % 0 % 05/31/19 08:59 Myelocytes % 0 % 05/31/19 08:59 Promyelocytes % 0 % 05/31/19 08:59 Blast Cells % 0 % 05/31/19 08:59 Nucleated RBC % Not Reportable 05/31/19 08:59 Seg Neutrophils # 4.3 K/mm3 (1.8-7.7) 06/01/19 03:51 Seg Neutrophils # Man 5.0 K/mm3 (1.8-7.7) 05/31/19 08:59 Band Neutrophils # 0.0 K/mm3 05/31/19 08:59 Lymphocytes # (Manual) 1.1 K/mm3 (1.2-5.4) L 05/31/19 08:59 Abs React Lymphs (Man) 0.0 K/mm3 05/31/19 08:59 Monocytes # (Manual) 0.8 K/mm3 (0.0-0.8) 05/31/19 08:59 Eosinophils # (Manual) 0.6 K/mm3 (0.0-0.4) H 05/31/19 08:59 Basophils # (Manual) 0.0 K/mm3 (0.0-0.1) 05/31/19 08:59 Metamyelocytes # 0.0 K/mm3 05/31/19 08:59 Myelocytes # 0.0 K/mm3 05/31/19 08:59 Promyelocytes # 0.0 K/mm3 05/31/19 08:59 Blast Cells # 0.0 K/mm3 05/31/19 08:59 WBC Morphology Not Reportable 05/31/19 08:59 Hypersegmented Neuts Not Reportable 05/31/19 08:59 Hyposegmented Neuts Not Reportable 05/31/19 08:59 Hypogranular Neuts Not Reportable 05/31/19 08:59 Smudge Cells Not Reportable 05/31/19 08:59 Toxic Granulation Not Reportable 05/31/19 08:59 Toxic Vacuolation Not Reportable 05/31/19 08:59 Dohle Bodies Not Reportable 05/31/19 08:59 Pelger-Huet Anomaly Not Reportable 05/31/19 08:59 Mervin Rods Not Reportable 05/31/19 08:59 Platelet Estimate Consistent w auto 05/31/19 08:59 Clumped Platelets Not Reportable 05/31/19 08:59 Plt Clumps, EDTA Not Reportable 05/31/19 08:59 Large Platelets Not Reportable 05/31/19 08:59 Giant Platelets Not Reportable 05/31/19 08:59 Platelet Satelliting Not Reportable 05/31/19 08:59 Plt Morphology Comment Not Reportable 05/31/19 08:59 RBC Morphology Not Reportable 05/31/19 08:59 Dimorphic RBCs Not Reportable 05/31/19 08:59 Polychromasia Not Reportable 05/31/19 08:59 Hypochromasia 1+ 05/31/19 08:59 Poikilocytosis Few 05/31/19 08:59 Anisocytosis Few 05/31/19 08:59 Microcytosis Not Reportable 05/31/19 08:59 Macrocytosis Not Reportable 05/31/19 08:59 Spherocytes Not Reportable 05/31/19 08:59 Pappenheimer Bodies Not Reportable 05/31/19 08:59 Sickle Cells Not Reportable 05/31/19 08:59 Target Cells Not Reportable 05/31/19 08:59 Tear Drop Cells Not Reportable 05/31/19 08:59 Ovalocytes Few 05/31/19 08:59 Helmet Cells Not Reportable 05/31/19 08:59 Brink-Pinson Bodies Not Reportable 05/31/19 08:59 [place] Rings Not Reportable 05/31/19 08:59 [place] Cells Not Reportable 05/31/19 08:59 Bite Cells Not Reportable 05/31/19 08:59 Crenated Cell Not Reportable 05/31/19 08:59 Elliptocytes Rare 05/31/19 08:59 Acanthocytes (Spur) Not Reportable 05/31/19 08:59 Rouleaux Not Reportable 05/31/19 08:59 Hemoglobin C Crystals Not Reportable 05/31/19 08:59 Schistocytes Not Reportable 05/31/19 08:59 Malaria parasites Not Reportable 05/31/19 08:59 Gianni Bodies Not Reportable 05/31/19 08:59 Hem Pathologist Commnt No 05/31/19 08:59 PT 14.1 Sec. (12.2-14.9) 05/31/19 12:21 INR 1.10 (0.87-1.13) 05/31/19 12:21 APTT 41.1 Sec. (24.2-36.6) H 05/31/19 12:21 D-Dimer 4262.71 ng/mlDDU (0-234) H 05/31/19 08:59 Heparin Anti-Xa Level < 0.10 U.I./ml (0.3-0.7) L 06/01/19 05:43 Sodium 148 mmol/L (137-145) H 06/02/19 03:10 Potassium 5.0 mmol/L (3.6-5.0) 06/02/19 03:10 Chloride 103.9 mmol/L (98-107) 06/02/19 03:10 Carbon Dioxide 27 mmol/L (22-30) 06/02/19 03:10 Anion Gap 22 mmol/L 06/02/19 03:10 BUN 17 mg/dL (9-20) 06/02/19 03:10 Creatinine 1.8 mg/dL (0.8-1.5) H D 06/02/19 03:10 Estimated GFR 47 ml/min 06/02/19 03:10 BUN/Creatinine Ratio 9 % 06/02/19 03:10 Glucose 159 mg/dL (75-100) H 06/02/19 03:10 POC Glucose 383 (70-105) H 06/02/19 11:15 Hemoglobin A1c 11.2 % (4-6) H 05/31/19 19:22 Calcium 9.2 mg/dL (8.4-10.2) 06/02/19 03:10 Magnesium 1.70 mg/dL (1.7-2.3) 05/31/19 08:59 Total Bilirubin 0.20 mg/dL (0.1-1.2) 06/01/19 03:51 Direct Bilirubin < 0.2 mg/dL (0-0.2) 05/31/19 08:59 Indirect Bilirubin 0.0 mg/dL 05/31/19 08:59 AST 29 units/L (5-40) 06/01/19 03:51 ALT 22 units/L (7-56) 06/01/19 03:51 Alkaline Phosphatase 106 units/L (35-129) 06/01/19 03:51 Total Creatine Kinase 35 units/L (55-170) L 05/31/19 08:59 CK-MB (CK-2) < 1.0 ng/mL (0.0-4.0) 05/31/19 08:59 CK-MB (CK-2) Rel Index 2.8 (0-4) 05/31/19 08:59 Troponin T < 0.010 ng/mL (0.00-0.029) 05/31/19 08:59 NT-Pro-B Natriuret Pep 305.5 pg/mL (0-900) 05/31/19 08:59 Total Protein 7.8 g/dL (6.3-8.2) 06/01/19 03:51 Albumin 3.3 g/dL (3.9-5) L 06/01/19 03:51 Albumin/Globulin Ratio 0.7 % 06/01/19 03:51 Urine Color Yellow (Yellow) 05/31/19 Unknown Urine Turbidity Clear (Clear) 05/31/19 Unknown Urine pH 6.0 (5.0-7.0) 05/31/19 Unknown Ur Specific [place] 1.010 (1.003-1.030) 05/31/19 Unknown Urine Protein 30 mg/dl mg/dL (Negative) 05/31/19 Unknown Urine Glucose (UA) Negative mg/dL (Negative) 05/31/19 Unknown Urine Ketones Negative mg/dL (Negative) 05/31/19 Unknown Urine Blood Negative (Negative) 05/31/19 Unknown Urine Nitrite Negative (Negative) 05/31/19 Unknown Ur Reducing Substances Not Reportable 05/31/19 Unknown Urine Bilirubin Negative (Negative) 05/31/19 Unknown Urine Ictotest Not Reportable 05/31/19 Unknown Urine Urobilinogen 0.0 mg/dL (<2.0) 05/31/19 Unknown Ur Leukocyte Esterase Negative (Negative) 05/31/19 Unknown Urine WBC (Auto) < 1.0 /HPF (0.0-6.0) 05/31/19 Unknown Urine RBC (Auto) < 1.0 /HPF (0.0-6.0) 05/31/19 Unknown U Epithel Cells (Auto) 1.0 /HPF (0-13.0) 05/31/19 Unknown Urine Bacteria (Auto) 1+ /HPF (Negative) 05/31/19 Unknown Urine Mucus Few /HPF 05/31/19 Unknown Blood Type A POSITIVE 05/31/19 12:21 Antibody Screen Negative 05/31/19 12:21 Active Medications - Current Medications Current Medications: Generic Name Dose Route Start Last Admin Trade Name Freq PRN Reason Stop Dose Admin Albuterol 2.5 mg 06/01/19 16:19 Proventil IH Q4HRT PRN Shortness Of Breath Albuterol/Ipratropium 1 ampul 06/01/19 20:00 06/02/19 13:20 Duoneb *Not For Prn Use* IH 1 ampul TIDRT SHANEL Administration Furosemide 40 mg 06/01/19 06:00 06/02/19 18:14 Lasix IV 40 mg 0600,1800 SHANEL Administration Glimepiride 2 mg 06/01/19 08:00 06/02/19 09:32 Amaryl PO 2 mg QDDIAB SHANEL Administration Heparin Sodium (Porcine) 5,000 unit 05/31/19 22:00 06/02/19 09:33 Heparin SUB-Q 5,000 unit Q12HR SHANEL Administration Hydromorphone HCl 0.5 mg 05/31/19 18:40 Dilaudid IV Q3H PRN Pain , Severe (7-10) Ceftriaxone Sodium 2 gm in 100 mls @ 200 mls/hr 06/01/19 10:00 06/02/19 09:33 Rocephin/Ns 2 Gm/100 Ml IV 06/05/19 10:29 200 mls/hr Q24HR SHANEL Administration Protocol Azithromycin 500 mg/ Sodium 250 mls @ 250 mls/hr 06/01/19 10:00 06/02/19 09:36 Chloride IV 06/05/19 10:59 250 mls/hr Q24HR SHANEL Administration Protocol Insulin Human Lispro 0 unit 05/31/19 23:30 06/02/19 18:14 Humalog SUB-Q 6 unit ACHS SHANEL Administration Protocol Metformin HCl 500 mg 06/01/19 08:00 06/02/19 18:14 Glucophage PO 500 mg BIDDIAB SHANEL Administration Metoclopramide HCl 10 mg 05/31/19 18:40 Reglan IV Q6H PRN Nausea And Vomiting Ondansetron HCl 4 mg 05/31/19 18:40 Zofran IV Q8H PRN Nausea And Vomiting Oxycodone/Acetaminophen 1 tab 05/31/19 18:40 Percocet 5/325 PO Q6H PRN Pain, Moderate (4-6) Sodium Chloride 10 ml 05/31/19 22:00 06/02/19 09:34 Sodium Chloride Flush Syringe 10 Ml IV 10 ml BID SHANEL Administration Sodium Chloride 10 ml 05/31/19 18:40 Sodium Chloride Flush Syringe 10 Ml IV PRN PRN LINE FLUSH
[2019-06-02] MEDS ORDERED: FUROSEMIDE 40 MG/4 ML INJ IV SCH (18:34)
[2019-06-02] MEDS ORDERED: INSULIN LISPRO 100 UNIT/ML SUB-Q ONE (19:00)
[2019-06-02] MEDS ORDERED: SODIUM CHLORIDE 0.9% 500 ML 500 ML IV SCH (19:00)
[2019-06-03] MEDS: INSULIN LISPRO 100 UNIT/ML SUB-Q SCH ×5 (00:25→22:32)
[2019-06-03 04:38] LABS: Hematocrit 31.3 % (35.5-45.6); Hemoglobin 9.4 gm/dl (11.8-15.2); Mean Corpuscular HGB Conc 30 % (32-34); Mean Corpuscular Volume 84 fl (84-94); Platelet Count 380 K/mm3 (140-440); Red Blood Count 3.74 M/mm3 (3.65-5.03); Red Cell Distribution Width 18.4 % (13.2-15.2)
[2019-06-03 05:02] LABS: Calcium 8.9 mg/dL (8.4-10.2)
[2019-06-03] MEDS: IPRATROPIUM/ALBUTEROL SULFATE 3 ML AMPUL.NEB IH SCH ×3 (07:42→20:29)
[2019-06-03] MEDS ORDERED: SODIUM CHLORIDE 0.9% 500 ML 500 ML IV SCH (08:00)
[2019-06-03] MEDS: GLIMEPIRIDE 2 MG TAB PO SCH (08:26)
[2019-06-03] MEDS: metFORMIN 500 MG TAB PO SCH (08:27)
--- NOTE | 2019-06-03 09:45 | Consultation ---
History of Present Illness Consult date: 06/03/19 Requesting physician: TRINY SHANNON Reason for consult: other (Acute Hypoxemic Respiratory Failure) History of present illness: PULMONARY/CCM CONSULT NOTE (full dictation # [id number]) Please see dictated notes for full details Medications and Allergies Allergies Allergy/AdvReac Type Severity Reaction Status Date / Time Unable to Assess Allergy Unverified 05/31/19 07:56 Home Medications Medication Instructions Recorded Confirmed Last Taken Type Ipratropium/Albuterol Sulfate 1 ampul IH TIDRT #90 ampul.neb 06/02/19 Unknown Rx [DUONEB *Not for PRN Use*] Aspirin [Aspirin BABY CHEW TAB] 81 mg PO DAILY 06/03/19 06/03/19 3 Days Ago History ~05/31/19 Desmopressin [Ddavp] 0.2 mg PO BID 06/03/19 06/03/19 3 Days Ago History ~05/31/19 Digoxin [Lanoxin] 0.125 mg PO DAILY 06/03/19 06/03/19 3 Days Ago History ~05/31/19 Folic Acid 100 mg PO DAILY 06/03/19 06/03/19 3 Days Ago History ~05/31/19 Furosemide [Lasix TAB] 40 mg PO QDAY 06/03/19 06/03/19 3 Days Ago History ~05/31/19 Insulin Lispro [Humalog 100 4 units SQ AC 06/03/19 06/03/19 3 Days Ago History UNITS/ML Kwikpen] ~05/31/19 Lantus Solostar 25 units SQ QAM 06/03/19 06/03/19 3 Days Ago History ~05/31/19 Levothyroxine [Synthroid] 88 mcg PO QAM 06/03/19 06/03/19 3 Days Ago History ~05/31/19 Lisinopril [Zestril] 5 mg PO BID 06/03/19 06/03/19 3 Days Ago History ~05/31/19 Metformin HCl [metFORMIN] 1,000 mg PO BID 06/03/19 06/03/19 3 Days Ago History ~05/31/19 Potassium Chloride [K-Dur] 20 meq PO QDAY 06/03/19 06/03/19 3 Days Ago History ~05/31/19 carvediloL [Coreg] 6.25 mg PO BID 06/03/19 06/03/19 3 Days Ago History ~05/31/19 Active Meds: Active Medications Albuterol (Proventil) 2.5 mg IH Q4HRT PRN PRN Reason: Shortness Of Breath Albuterol/Ipratropium (Duoneb *Not For Prn Use*) 1 ampul IH TIDRT [facility] Last Admin: 06/03/19 07:42 Dose: 1 ampul Documented by: Glimepiride (Amaryl) 2 mg PO QDDIAB [facility] Last Admin: 06/03/19 08:26 Dose: 2 mg Documented by: Heparin Sodium (Porcine) (Heparin) 5,000 unit SUB-Q Q12HR [facility] Last Admin: 06/02/19 21:51 Dose: 5,000 unit Documented by: Hydromorphone HCl (Dilaudid) 0.5 mg IV Q3H PRN PRN Reason: Pain , Severe (7-10) Ceftriaxone Sodium (Rocephin/Ns 2 Gm/100 Ml) 2 gm in 100 mls @ 200 mls/hr IV Q24HR [facility]; Protocol Stop: 06/05/19 10:29 Last Admin: 06/02/19 09:33 Dose: 200 mls/hr Documented by: Azithromycin 500 mg/ Sodium (Chloride) 250 mls @ 250 mls/hr IV Q24HR [facility]; Protocol Stop: 06/05/19 10:59 Last Admin: 06/02/19 09:36 Dose: 250 mls/hr Documented by: Sodium Chloride (Nacl 0.9% 500 Ml) 500 mls @ 50 mls/hr IV DIRECT [facility] Stop: 06/03/19 17:59 Insulin Human Lispro (Humalog) 0 unit SUB-Q ACHS [facility]; Protocol Last Admin: 06/03/19 08:27 Dose: 4 unit Documented by: Metoclopramide HCl (Reglan) 10 mg IV Q6H PRN PRN Reason: Nausea And Vomiting Ondansetron HCl (Zofran) 4 mg IV Q8H PRN PRN Reason: Nausea And Vomiting Oxycodone/Acetaminophen (Percocet 5/325) 1 tab PO Q6H PRN PRN Reason: Pain, Moderate (4-6) Sodium Chloride (Sodium Chloride Flush Syringe 10 Ml) 10 ml IV BID [facility] Last Admin: 06/02/19 22:02 Dose: 10 ml Documented by: Sodium Chloride (Sodium Chloride Flush Syringe 10 Ml) 10 ml IV PRN PRN PRN Reason: LINE FLUSH Physical Examination Vital signs: Vital Signs Temp Pulse Resp BP Pulse Ox 97.6 F 100 H 30 H 109/54 97 05/31/19 07:43 05/31/19 07:43 05/31/19 07:43 05/31/19 07:43 05/31/19 07:43 Results - Laboratory Findings CBC and BMP: 06/03/19 03:33 06/03/19 03:33 PT/INR, D-dimer PT 14.1 Sec. (12.2-14.9) 05/31/19 12:21 INR 1.10 (0.87-1.13) 05/31/19 12:21 D-Dimer 4262.71 ng/mlDDU (0-234) H 05/31/19 08:59 Abnormal lab findings: Abnormal Labs 05/31/19 05/31/19 05/31/19 08:59 08:59 08:59 RBC 3.46 L Hgb 8.8 L Hct 28.8 L MCV 83 L MCH 26 L MCHC 31 L RDW 18.3 H [place] % (Auto) Eos % (Auto) [place] # Eos # Monocytes % (Manual) 11.0 H Eosinophils % (Manual) 8.0 H Lymphocytes # (Manual) 1.1 L Eosinophils # (Manual) 0.6 H APTT D-Dimer 4262.71 H Heparin Anti-Xa Level Sodium Potassium 5.4 H Carbon Dioxide 19 L Creatinine Glucose 304 H POC Glucose Hemoglobin A1c Total Creatine Kinase 35 L Albumin 3.1 L 05/31/19 05/31/19 05/31/19 12:21 12:21 17:31 RBC Hgb 9.1 L Hct 29.6 L MCV MCH MCHC RDW [place] % (Auto) Eos % (Auto) [place] # Eos # Monocytes % (Manual) Eosinophils % (Manual) Lymphocytes # (Manual) Eosinophils # (Manual) APTT 41.1 H D-Dimer Heparin Anti-Xa Level Sodium Potassium Carbon Dioxide Creatinine Glucose POC Glucose 329 H Hemoglobin A1c Total Creatine Kinase Albumin 05/31/19 05/31/19 05/31/19 19:22 19:22 21:43 RBC Hgb Hct MCV MCH MCHC RDW [place] % (Auto) Eos % (Auto) [place] # Eos # Monocytes % (Manual) Eosinophils % (Manual) Lymphocytes # (Manual) Eosinophils # (Manual) APTT D-Dimer Heparin Anti-Xa Level < 0.10 L Sodium Potassium Carbon Dioxide Creatinine Glucose POC Glucose 365 H Hemoglobin A1c 11.2 H Total Creatine Kinase Albumin 05/31/19 06/01/19 06/01/19 23:14 03:51 03:51 RBC 3.57 L Hgb 9.0 L Hct 29.0 L MCV 81 L MCH 25 L MCHC 31 L RDW 17.9 H [place] % (Auto) 13.9 H Eos % (Auto) 6.7 H [place] # 1.0 H Eos # 0.5 H Monocytes % (Manual) Eosinophils % (Manual) Lymphocytes # (Manual) Eosinophils # (Manual) APTT D-Dimer Heparin Anti-Xa Level 0.10 L Sodium Potassium Carbon Dioxide Creatinine Glucose 374 H POC Glucose Hemoglobin A1c Total Creatine Kinase Albumin 3.3 L 06/01/19 06/01/19 06/01/19 05:43 07:56 11:56 RBC Hgb Hct MCV MCH MCHC RDW [place] % (Auto) Eos % (Auto) [place] # Eos # Monocytes % (Manual) Eosinophils % (Manual) Lymphocytes # (Manual) Eosinophils # (Manual) APTT D-Dimer Heparin Anti-Xa Level < 0.10 L Sodium Potassium Carbon Dioxide Creatinine Glucose POC Glucose 390 H 442 H Hemoglobin A1c Total Creatine Kinase Albumin 06/01/19 06/01/19 06/02/19 15:55 20:35 03:10 RBC Hgb 9.5 L Hct 31.5 L MCV 83 L MCH 25 L MCHC 30 L RDW 18.4 H [place] % (Auto) Eos % (Auto) [place] # Eos # Monocytes % (Manual) Eosinophils % (Manual) Lymphocytes # (Manual) Eosinophils # (Manual) APTT D-Dimer Heparin Anti-Xa Level Sodium Potassium Carbon Dioxide Creatinine Glucose POC Glucose 290 H 254 H Hemoglobin A1c Total Creatine Kinase Albumin 06/02/19 06/02/19 06/02/19 03:10 07:45 11:15 RBC Hgb Hct MCV MCH MCHC RDW [place] % (Auto) Eos % (Auto) [place] # Eos # Monocytes % (Manual) Eosinophils % (Manual) Lymphocytes # (Manual) Eosinophils # (Manual) APTT D-Dimer Heparin Anti-Xa Level Sodium 148 H Potassium Carbon Dioxide Creatinine 1.8 H D Glucose 159 H POC Glucose 222 H 383 H Hemoglobin A1c Total Creatine Kinase Albumin 06/02/19 06/02/19 06/03/19 15:41 22:06 00:41 RBC Hgb Hct MCV MCH MCHC RDW [place] % (Auto) Eos % (Auto) [place] # Eos # Monocytes % (Manual) Eosinophils % (Manual) Lymphocytes # (Manual) Eosinophils # (Manual) APTT D-Dimer Heparin Anti-Xa Level Sodium Potassium Carbon Dioxide Creatinine Glucose POC Glucose 262 H 146 H 216 H Hemoglobin A1c Total Creatine Kinase Albumin 06/03/19 06/03/19 06/03/19 03:33 03:33 07:45 RBC Hgb 9.4 L Hct 31.3 L MCV MCH 25 L MCHC 30 L RDW 18.4 H [place] % (Auto) Eos % (Auto) [place] # Eos # Monocytes % (Manual) Eosinophils % (Manual) Lymphocytes # (Manual) Eosinophils # (Manual) APTT D-Dimer Heparin Anti-Xa Level Sodium 148 H Potassium Carbon Dioxide Creatinine 2.1 H Glucose 225 H POC Glucose 217 H Hemoglobin A1c Total Creatine Kinase Albumin
[2019-06-03] MEDS: cefTRIAXone/NS 2 GM/100 ML 2 GM/100 ML BAG IV SCH (10:08)
[2019-06-03] MEDS: HEPARIN 5,000 UNIT/1 ML VIAL SUB-Q SCH ×2 (10:08→22:30)
[2019-06-03] MEDS: AZITHROMYCIN 500 MG in SODIUM CHLORIDE 0.9% 250ML 250 ML IV SCH (10:24)
--- NOTE | 2019-06-03 11:43 | Progress Note ---
Assessment and Plan Assessment and plan: 58-year-old pleasant gentleman comes in for bilateral lower extremity swelling for one week and increasing sob for one week. Cough non productive. Patient has orthopnea. Also class IV NYHA symptoms.No fever or chills. Initial room air sats 85 percent . (1) Acute respiratory failure with Hypoxia Current Visit: Yes Status: Acute Qualifiers: Respiratory failure complication: hypoxia Qualified Code(s): J96.01 - Acute respiratory failure with hypoxia Plan to address problem: Cont O2 and Bipap as necessary. IV abx IV Solumedrol - taper and Duonebs Pulmonary consult- discussed, concerned for aspiration pneumonia. Echo reviewed. no evidence of endocarditis, No comment on Pulmonary pressures. (2) Bilateral pneumonia Current Visit: Yes Status: Acute Qualifiers: Lung location: unspecified part of lung Plan to address problem: IV abx and Duonebs for now Add LEVAQUIN (3) Exacerbation of CHF (congestive heart failure) Current Visit: Yes Status: Acute Qualifiers: Heart failure type: combined systolic and diastolic Qualified Code(s): I50.43 - Acute on chronic combined systolic (congestive) and diastolic (congestive) heart failure Plan to address problem: On IV Lasix Discussed with cardiology, NO clear evidence of acute heart failure exacerbation Still with Tachycardia, likely deconditioning. (4) T2DM (type 2 diabetes mellitus) Current Visit: Yes Status: Chronic Qualifiers: Diabetes mellitus buttermaker helper insulin use: unspecified buttermaker helper insulin use status Plan to address problem: Cont coverage Initiate Metformin and Glimepiride increase insulin for better control (5) HTN (hypertension) Current Visit: Yes Status: Chronic Qualifiers: Hypertension type: essential hypertension Qualified Code(s): I10 - [place] l (primary) hypertension Plan to address problem: Cont antihypertensives (6) JOE (obstructive sleep apnea) Current Visit: Yes Status: Chronic Plan to address problem: Cont CPAP (7) DVT prophylaxis Current Visit: Yes Status: Acute Plan to address problem: On Heparin and GI prophylaxis Discharge when hypoxia improves Discussed with Nursings staff to obtain home medication, This may hold the ramírez to his tachycardia. History Interval history: Patient seen and examined, reports improvement in respiratory symptoms, no chest pain, nausea or vomiting. still with lower ext edema, clinically improving today now with 92% saturation on 3 liters, ambulating with physical therapy. Pulmonary doctor concerned about some findings on the CT chest, will want to evaluate for possible Endocarditis vs Pulmonary HTN, Aspiration pneumonia on the right side,. Patient current with no fever Hospitalist Physical - Physical exam Narrative exam: General appearance: Present: No distress, well-nourished - EENT Eyes: Present: PERRL ENT: hearing intact, clear oral mucosa - Neck Neck: Present: supple, normal ROM - Respiratory Respiratory effort: normal Respiratory: bilateral: diminished, - Cardiovascular Rhythm:TACHYCARDIA Heart Sounds: Present: S1 & S2. Absent: rub, click - Extremities Extremities: no ischemia, pulses intact, pulses symmetrical, Extremity abnormal: edema (3plus) Peripheral Pulses: within normal limits - Abdominal General gastrointestinal: Present: soft, non-tender, non-distended, normal bowel sounds Male genitourinary: Present: normal - Integumentary Integumentary: Present: chronic changes in the lower ext, edema trace bilateral - Musculoskeletal Musculoskeletal: gait normal, strength equal bilaterally - Psychiatric Psychiatric: appropriate mood/affect, intact judgment & insight - Neurologic Neurologic: CNII-XII intact, moves all extremities - Constitutional Vitals: Temp Pulse Resp BP Pulse Ox 98.0 F 110 H 18 109/59 95 06/03/19 05:14 06/03/19 09:15 06/03/19 07:43 06/03/19 04:17 06/03/19 07:44 General appearance: Present: no acute distress Results - Labs CBC & Chem 7: 06/03/19 03:33 06/03/19 03:33 Labs: Laboratory Last Values WBC 7.2 K/mm3 (4.5-11.0) 06/03/19 03:33 RBC 3.74 M/mm3 (3.65-5.03) 06/03/19 03:33 Hgb 9.4 gm/dl (11.8-15.2) L 06/03/19 03:33 Hct 31.3 % (35.5-45.6) L 06/03/19 03:33 MCV 84 fl (84-94) 06/03/19 03:33 MCH 25 pg (28-32) L 06/03/19 03:33 MCHC 30 % (32-34) L 06/03/19 03:33 RDW 18.4 % (13.2-15.2) H 06/03/19 03:33 Plt Count 380 K/mm3 (140-440) 06/03/19 03:33 Lymph % (Auto) 16.5 % (13.4-35.0) 06/01/19 03:51 [place] % (Auto) 13.9 % (0.0-7.3) H 06/01/19 03:51 Eos % (Auto) 6.7 % (0.0-4.3) H 06/01/19 03:51 Baso % (Auto) 0.8 % (0.0-1.8) 06/01/19 03:51 Lymph # 1.2 K/mm3 (1.2-5.4) 06/01/19 03:51 [place] # 1.0 K/mm3 (0.0-0.8) H 06/01/19 03:51 Eos # 0.5 K/mm3 (0.0-0.4) H 06/01/19 03:51 Baso # 0.1 K/mm3 (0.0-0.1) 06/01/19 03:51 Add Manual Diff Complete 05/31/19 08:59 Total Counted 100 05/31/19 08:59 Seg Neutrophils % 62.1 % (40.0-70.0) 06/01/19 03:51 Seg Neuts % (Manual) 67.0 % (40.0-70.0) 05/31/19 08:59 Band Neutrophils % 0 % 05/31/19 08:59 Lymphocytes % (Manual) 14.0 % (13.4-35.0) 05/31/19 08:59 Reactive Lymphs % (Man) 0 % 05/31/19 08:59 Monocytes % (Manual) 11.0 % (0.0-7.3) H 05/31/19 08:59 Eosinophils % (Manual) 8.0 % (0.0-4.3) H 05/31/19 08:59 Basophils % (Manual) 0 % (0.0-1.8) 05/31/19 08:59 Metamyelocytes % 0 % 05/31/19 08:59 Myelocytes % 0 % 05/31/19 08:59 Promyelocytes % 0 % 05/31/19 08:59 Blast Cells % 0 % 05/31/19 08:59 Nucleated RBC % Not Reportable 05/31/19 08:59 Seg Neutrophils # 4.3 K/mm3 (1.8-7.7) 06/01/19 03:51 Seg Neutrophils # Man 5.0 K/mm3 (1.8-7.7) 05/31/19 08:59 Band Neutrophils # 0.0 K/mm3 05/31/19 08:59 Lymphocytes # (Manual) 1.1 K/mm3 (1.2-5.4) L 05/31/19 08:59 Abs React Lymphs (Man) 0.0 K/mm3 05/31/19 08:59 Monocytes # (Manual) 0.8 K/mm3 (0.0-0.8) 05/31/19 08:59 Eosinophils # (Manual) 0.6 K/mm3 (0.0-0.4) H 05/31/19 08:59 Basophils # (Manual) 0.0 K/mm3 (0.0-0.1) 05/31/19 08:59 Metamyelocytes # 0.0 K/mm3 05/31/19 08:59 Myelocytes # 0.0 K/mm3 05/31/19 08:59 Promyelocytes # 0.0 K/mm3 05/31/19 08:59 Blast Cells # 0.0 K/mm3 05/31/19 08:59 WBC Morphology Not Reportable 05/31/19 08:59 Hypersegmented Neuts Not Reportable 05/31/19 08:59 Hyposegmented Neuts Not Reportable 05/31/19 08:59 Hypogranular Neuts Not Reportable 05/31/19 08:59 Smudge Cells Not Reportable 05/31/19 08:59 Toxic Granulation Not Reportable 05/31/19 08:59 Toxic Vacuolation Not Reportable 05/31/19 08:59 Dohle Bodies Not Reportable 05/31/19 08:59 Pelger-Huet Anomaly Not Reportable 05/31/19 08:59 Mervin Rods Not Reportable 05/31/19 08:59 Platelet Estimate Consistent w auto 05/31/19 08:59 Clumped Platelets Not Reportable 05/31/19 08:59 Plt Clumps, EDTA Not Reportable 05/31/19 08:59 Large Platelets Not Reportable 05/31/19 08:59 Giant Platelets Not Reportable 05/31/19 08:59 Platelet Satelliting Not Reportable 05/31/19 08:59 Plt Morphology Comment Not Reportable 05/31/19 08:59 RBC Morphology Not Reportable 05/31/19 08:59 Dimorphic RBCs Not Reportable 05/31/19 08:59 Polychromasia Not Reportable 05/31/19 08:59 Hypochromasia 1+ 05/31/19 08:59 Poikilocytosis Few 05/31/19 08:59 Anisocytosis Few 05/31/19 08:59 Microcytosis Not Reportable 05/31/19 08:59 Macrocytosis Not Reportable 05/31/19 08:59 Spherocytes Not Reportable 05/31/19 08:59 Pappenheimer Bodies Not Reportable 05/31/19 08:59 Sickle Cells Not Reportable 05/31/19 08:59 Target Cells Not Reportable 05/31/19 08:59 Tear Drop Cells Not Reportable 05/31/19 08:59 Ovalocytes Few 05/31/19 08:59 Helmet Cells Not Reportable 05/31/19 08:59 Brink-Lasara Bodies Not Reportable 05/31/19 08:59 [place] Rings Not Reportable 05/31/19 08:59 Ileana Cells Not Reportable 05/31/19 08:59 Bite Cells Not Reportable 05/31/19 08:59 Crenated Cell Not Reportable 05/31/19 08:59 Elliptocytes Rare 05/31/19 08:59 Acanthocytes (Spur) Not Reportable 05/31/19 08:59 Rouleaux Not Reportable 05/31/19 08:59 Hemoglobin C Crystals Not Reportable 05/31/19 08:59 Schistocytes Not Reportable 05/31/19 08:59 Malaria parasites Not Reportable 05/31/19 08:59 Gianni Bodies Not Reportable 05/31/19 08:59 Hem Pathologist Commnt No 05/31/19 08:59 PT 14.1 Sec. (12.2-14.9) 05/31/19 12:21 INR 1.10 (0.87-1.13) 05/31/19 12:21 APTT 41.1 Sec. (24.2-36.6) H 05/31/19 12:21 D-Dimer 4262.71 ng/mlDDU (0-234) H 05/31/19 08:59 Heparin Anti-Xa Level < 0.10 U.I./ml (0.3-0.7) L 06/01/19 05:43 Sodium 148 mmol/L (137-145) H 06/03/19 03:33 Potassium 4.9 mmol/L (3.6-5.0) 06/03/19 03:33 Chloride 105.7 mmol/L (98-107) 06/03/19 03:33 Carbon Dioxide 30 mmol/L (22-30) 06/03/19 03:33 Anion Gap 17 mmol/L 06/03/19 03:33 BUN 19 mg/dL (9-20) 06/03/19 03:33 Creatinine 2.1 mg/dL (0.8-1.5) H 06/03/19 03:33 Estimated GFR 39 ml/min 06/03/19 03:33 BUN/Creatinine Ratio 9 % 06/03/19 03:33 Glucose 225 mg/dL (75-100) H 06/03/19 03:33 POC Glucose 217 (70-105) H 06/03/19 07:45 Hemoglobin A1c 11.2 % (4-6) H 05/31/19 19:22 Lactic Acid 1.90 mmol/L (0.7-2.0) 06/03/19 09:59 Calcium 8.9 mg/dL (8.4-10.2) 06/03/19 03:33 Magnesium 1.70 mg/dL (1.7-2.3) 05/31/19 08:59 Total Bilirubin 0.20 mg/dL (0.1-1.2) 06/01/19 03:51 Direct Bilirubin < 0.2 mg/dL (0-0.2) 05/31/19 08:59 Indirect Bilirubin 0.0 mg/dL 05/31/19 08:59 AST 29 units/L (5-40) 06/01/19 03:51 ALT 22 units/L (7-56) 06/01/19 03:51 Alkaline Phosphatase 106 units/L (35-129) 06/01/19 03:51 Total Creatine Kinase 35 units/L (55-170) L 05/31/19 08:59 CK-MB (CK-2) < 1.0 ng/mL (0.0-4.0) 05/31/19 08:59 CK-MB (CK-2) Rel Index 2.8 (0-4) 05/31/19 08:59 Troponin T < 0.010 ng/mL (0.00-0.029) 05/31/19 08:59 NT-Pro-B Natriuret Pep 305.5 pg/mL (0-900) 05/31/19 08:59 Total Protein 7.8 g/dL (6.3-8.2) 06/01/19 03:51 Albumin 3.3 g/dL (3.9-5) L 06/01/19 03:51 Albumin/Globulin Ratio 0.7 % 06/01/19 03:51 Urine Color Yellow (Yellow) 05/31/19 Unknown Urine Turbidity Clear (Clear) 05/31/19 Unknown Urine pH 6.0 (5.0-7.0) 05/31/19 Unknown Ur Specific [place] 1.010 (1.003-1.030) 05/31/19 Unknown Urine Protein 30 mg/dl mg/dL (Negative) 05/31/19 Unknown Urine Glucose (UA) Negative mg/dL (Negative) 05/31/19 Unknown Urine Ketones Negative mg/dL (Negative) 05/31/19 Unknown Urine Blood Negative (Negative) 05/31/19 Unknown Urine Nitrite Negative (Negative) 05/31/19 Unknown Ur Reducing Substances Not Reportable 05/31/19 Unknown Urine Bilirubin Negative (Negative) 05/31/19 Unknown Urine Ictotest Not Reportable 05/31/19 Unknown Urine Urobilinogen 0.0 mg/dL (<2.0) 05/31/19 Unknown Ur Leukocyte Esterase Negative (Negative) 05/31/19 Unknown Urine WBC (Auto) < 1.0 /HPF (0.0-6.0) 05/31/19 Unknown Urine RBC (Auto) < 1.0 /HPF (0.0-6.0) 05/31/19 Unknown U Epithel Cells (Auto) 1.0 /HPF (0-13.0) 05/31/19 Unknown Urine Bacteria (Auto) 1+ /HPF (Negative) 05/31/19 Unknown Urine Mucus Few /HPF 05/31/19 Unknown Blood Type A POSITIVE 05/31/19 12:21 Antibody Screen Negative 05/31/19 12:21 Active Medications - Current Medications Current Medications: Generic Name Dose Route Start Last Admin Trade Name Freq PRN Reason Stop Dose Admin Albuterol 2.5 mg 06/01/19 16:19 Proventil IH Q4HRT PRN Shortness Of Breath Albuterol/Ipratropium 1 ampul 06/01/19 20:00 06/03/19 07:42 Duoneb *Not For Prn Use* IH 1 ampul TIDRT SHANEL Administration Glimepiride 2 mg 06/01/19 08:00 06/03/19 08:26 Amaryl PO 2 mg QDDIAB SHANEL Administration Heparin Sodium (Porcine) 5,000 unit 05/31/19 22:00 06/03/19 10:08 Heparin SUB-Q 5,000 unit Q12HR SHANEL Administration Hydromorphone HCl 0.5 mg 05/31/19 18:40 Dilaudid IV Q3H PRN Pain , Severe (7-10) Ceftriaxone Sodium 2 gm in 100 mls @ 200 mls/hr 06/01/19 10:00 06/03/19 10:08 Rocephin/Ns 2 Gm/100 Ml IV 06/05/19 10:29 200 mls/hr Q24HR SHANEL Administration Protocol Azithromycin 500 mg/ Sodium 250 mls @ 250 mls/hr 06/01/19 10:00 06/03/19 10:24 Chloride IV 06/05/19 10:59 250 mls/hr Q24HR SHANEL Administration Protocol Sodium Chloride 500 mls @ 50 mls/hr 06/03/19 08:00 Nacl 0.9% 500 Ml IV 06/03/19 17:59 DIRECT SHANEL Levofloxacin/Dextrose 750 mg in 150 mls @ 100 mls/hr 06/03/19 12:00 Levaquin 750mg/150ml IV Q48H SHANEL Protocol Insulin Human Lispro 0 unit 05/31/19 23:30 06/03/19 08:27 Humalog SUB-Q 4 unit ACHS SHANEL Administration Protocol Metoclopramide HCl 10 mg 05/31/19 18:40 Reglan IV Q6H PRN Nausea And Vomiting Ondansetron HCl 4 mg 05/31/19 18:40 Zofran IV Q8H PRN Nausea And Vomiting Oxycodone/Acetaminophen 1 tab 05/31/19 18:40 Percocet 5/325 PO Q6H PRN Pain, Moderate (4-6) Sodium Chloride 10 ml 05/31/19 22:00 06/03/19 10:24 Sodium Chloride Flush Syringe 10 Ml IV 10 ml BID SHANEL Administration Sodium Chloride 10 ml 05/31/19 18:40 Sodium Chloride Flush Syringe 10 Ml IV PRN PRN LINE FLUSH
[2019-06-03] MEDS: FAMOTIDINE 20 MG TAB PO SCH (17:41)
--- NOTE | 2019-06-03 18:20 | Consultation ---
PULMONARY CRITICAL CARE CONSULTATION NOTE CONSULTING PHYSICIAN: Dr. Flores. REASON FOR CONSULTATION: Acute hypoxemic respiratory failure. CHIEF COMPLAINT AND HISTORY OF PRESENT ILLNESS: The patient is a 58-year-old obese -[place] male with past medical history significant according to the records for a diagnosis of COPD and obstructive sleep apnea, who came into the Emergency Room about 3 days ago complaining of bilateral lower extremity swelling, it had been going on for about a week, but was a poor historian, also could not say much, really if it had been going on for much longer. He complained of dyspnea on exertion. He complained of orthopnea at home. Emergency medical services found to be hypoxemic, O2 sats of 85%. He is not on any home oxygen. He was brought into the Emergency Room. Denied a history of venous thromboembolic phenomenon. He was evaluated in the Emergency Room and diagnosed with an acute left lower lobe pneumonia, seen initially on a chest x-ray, but also on CT angiogram of the chest, was admitted to the medical floor and apparently decompensated yesterday when he was about to have physical therapy. We are asked to assist with management. When I stopped by to see him, he was resting in bed, head of bed was elevated around 45-50 degrees. A very poor historian, but appropriate when he does answer simple commands. He denied acute chest pain. He denied any history of hemoptysis. He denied any fevers or chills. He denied any known history of obstructive sleep apnea. When asked if he does use a CPAP all the much when he went to sleep at night occasionally or continuously, he states that he does. He denied any nausea, vomiting, or overt aspiration prior to coming to the hospital. This really is as much of the history of presentation as I have. PAST MEDICAL HISTORY: Again, COPD, obstructive sleep apnea and diabetes. He is also obese. PAST SURGICAL HISTORY: Unknown. MEDICATIONS: He was on at the time I stopped by to see him were reviewed, pertinent medications include the following: He was on p.r.n. albuterol treatments 2.5 mg nebulized q. 4 hours, he was on DuoNeb treatments nebulized t.i.d., Zithromax 500 mg IV daily, Rocephin 2 g IV daily, Amaryl 2 mg p.o. daily, heparin 5000 units subcutaneous q.12 hours, Dilaudid 0.5 mg IV q. 3 hours p.r.n. severe pain, insulin via sliding scale, Reglan 10 mg IV q. 6 hours p.r.n. nausea and vomiting, Zofran 4 mg IV q. 8 hours p.r.n. nausea and vomiting, Percocet 5/325 mg 1 tablet p.o. q. 6 hours p.r.n. moderate pain. He received Lasix earlier 40 mg IV q. b.i.d. He has just been started on Levaquin 750 mg IV q. 48 hours scheduled. ALLERGIES: Unknown. DIET: Obese gentleman. Denies acute weight loss or gain in the preceding few weeks to months. FAMILY AND SOCIAL HISTORY: I believe he is a care home resident. No family around. Denies tobacco use or abuse history. FAMILY HISTORY: Otherwise unknown. REVIEW OF SYSTEMS: Difficult to obtain secondary to the patient's medical and mental condition. Since he has been here, no gross hematochezia or melena, no gross hematuria, no hematemesis, no hemoptysis. He admits to coughing. He admitted to the orthopnea. Denies heat or cold intolerance. Denies polydipsia or polyuria. Denies any new lumps, bumps on his body. He did complain of the bilateral lower extremity swelling. Complete 13-system review of systems obtained. Pertinent positives and/or negatives as in body of history above, otherwise noncontributory. PHYSICAL EXAMINATION: VITAL SIGNS: At presentation in the Emergency Room, he was afebrile, temperature 97.6 degrees Fahrenheit, pulse was 100, respiratory rate was 30, blood pressure was 109/54, O2 sats were 97%, inspired oxygen concentration at that time was not recorded. When I stopped by to see him, his O2 sats were 98%; however, that was on 3 liters nasal cannula. GENERAL: He is a middle-aged obese -[place] male. Normocephalic, atraumatic, resting in bed with mildly increased respiratory effort at rest. HEAD, EYES, EARS, NOSE AND THROAT: He is anicteric. No conjunctival erythema. Oropharynx was moist. Mallampati #3 oropharynx. No gross jugular venous distention. He has a large neck circumference. No thyromegaly. NECK: Grossly, there were no palpable lymph nodes in the supraclavicular or submandibular lymph node chains. LUNGS: Auscultation of both lung peña significant for diminished bilateral breath sounds, slightly prolonged expiratory phase, diminished bibasilar air entry and inspiratory rales in the bases in particular. HEART: Heart sounds 1 and 2 are heard. They were regular in rate and rhythm at time of my evaluation without overt rubs or murmurs. ABDOMEN: Soft, full, protuberant, bowel sounds positive, nontender, no palpable hepatosplenomegaly. EXTREMITIES: Without overt digital clubbing or cyanosis. He did have trace to 1+ bipedal pitting edema. No calf tenderness or Homans sign. Pedal pulses were strong bilaterally to pulse. NEUROLOGIC: Pupils are equal, round, about 4 mm, reactive to light. Extraocular muscle movements were intact. Cranial nerves 2-12 are intact. He was a little bit slow/with a mild cognitive defect. He did move all 4 extremities spontaneously a little slow. No obvious tremor at rest. SKIN: Normal turgor in the areas I examined without overt cellulitis or rash. Please see wound care notes for full details. PSYCHIATRIC: His mood and affect were flat. LABORATORY DATA: From my review is as follows: Admission white cell count was 7500 with a hemoglobin of 8.8, hematocrit of 28.8, platelet count of 349. No band forms reported. D-dimer was 4262 at presentation. Serum sodium was 142, potassium was 5.4, chloride 106, bicarb 19, BUN 13, creatinine 1.0, glucose was 304. Hemoglobin A1c was elevated at 11.2. Liver function tests were within normal limits. Troponin within normal limits. BNP was within normal limits. Urinalysis was negative for nitrites and leukocyte esterase. No ABG. INR was within normal limits. No cultures. IMAGING STUDIES: A chest x-ray was done. I have reviewed the report as well as the images and the chest x-ray does clearly show left lower lobe infiltrate in particular. The CT angiogram did not have the best contrast phase timing, but I do agree no large order filling defects consistent with central pulmonary emboli. He has some shotty mediastinal adenopathy in the AP window and perhaps subcarinal, again very suboptimal CT angiogram. He has left lower lobe atelectasis with some air bronchograms evident. He also has ground glass opacification. There is significant motion artifact. No gross pneumothorax. He did have consolidation in the left lower lobe. There was also an area along the apex of the right lung medially that appeared to be some consolidation/mass and small left pleural effusion. ASSESSMENT: 1. Acute hypoxemic respiratory failure. 2. Bilateral bibasilar left greater than right pneumonias. 3. Right paratracheal consolidation or mass. 4. History of obstructive sleep apnea. 5. Acute chronic obstructive pulmonary disease exacerbation. 6. Diabetes, poorly treated and poorly controlled. 7. Hyperkalemia at presentation. 8. Acute kidney injury that is new to this admission. PLAN: I am bothered that there might be more to the chest imaging findings. I do believe he will benefit definitely from bilevel positive airway pressure ventilation therapy. I will use it as scheduled at bedtime both for his known sleep apnea but also for alveolar recruitment. I will get arterial blood gas now stat. I do think we need to treat empirically for possible aspiration pneumonia, plus or minus get a swallow evaluation. I am not comfortable with the current CT angiogram. I do feel it is a suboptimal test and only rules out large order or I say first order pulmonary emboli. I am not so sure that a V/Q scan will be anything but indeterminate considering his chest x-ray pictures at this time but that will be considered. Bilateral lower extremity Dopplers have been done and those were negative for deep venous thrombosis. The ground glass opacifications may have represented an element of pulmonary edema at presentation and perhaps diuresis is responsible for the acute kidney injury, but at this time, I do agree with stopping diuretics while watching his renal function. I will hold on rehydration at this time. Nephrology evaluation should be considered. Fractional excretion of sodium may be calculated to help guide volume repletion. I do agree with addition of Levaquin just to better anaerobic coverage. Sputum cultures will be ordered. Blood cultures will be ordered. I will order a V/Q scan for tomorrow. Hopefully, we do get coincide reading. He is appropriately on DVT prophylaxis. He will be placed on GI prophylaxis. Flu and pneumonia vaccination will be addressed per protocol. As mentioned, I will go ahead and discontinue the Rocephin and Zithromax. Again, send blood cultures. I will also get a procalcitonin level to help guide clinical decision making for this gentleman, who essentially came in with systemic inflammatory response syndrome, perhaps even early sepsis at presentation. Thank you very much for the consult Dr. Flores. We will follow along and make further recommendations as picture progresses/becomes clearer. JOB# [id number] MARGIE/SAROJ LUNA
[2019-06-03] MEDS: BUDESONIDE 0.5 MG/2 ML NEBU IH SCH (20:28)
[2019-06-03] MEDS: ARFORMOTEROL 15 MCG/2 ML NEBU IH SCH (20:28)
[2019-06-03] MEDS: methylPREDNISolone Sod Succinate 40 MG/1 ML INJ IV SCH (22:30)
[2019-06-04 06:20] LABS: Hematocrit 30.5 % (35.5-45.6); Hemoglobin 9.3 gm/dl (11.8-15.2); Mean Corpuscular HGB Conc 31 % (32-34); Mean Corpuscular Volume 83 fl (84-94); Platelet Count 387 K/mm3 (140-440); Red Cell Distribution Width 18.1 % (13.2-15.2)
[2019-06-04 06:40] LABS: Calcium 9.1 mg/dL (8.4-10.2)
[2019-06-04] MEDS: BUDESONIDE 0.5 MG/2 ML NEBU IH SCH ×2 (07:53→19:55)
[2019-06-04] MEDS: ARFORMOTEROL 15 MCG/2 ML NEBU IH SCH ×2 (07:53→19:55)
[2019-06-04] MEDS: IPRATROPIUM/ALBUTEROL SULFATE 3 ML AMPUL.NEB IH SCH ×3 (07:57→19:55)
[2019-06-04] MEDS: INSULIN LISPRO 100 UNIT/ML SUB-Q SCH ×4 (08:00→21:41)
[2019-06-04] MEDS: GLIMEPIRIDE 2 MG TAB PO SCH (08:00)
[2019-06-04] MEDS: methylPREDNISolone Sod Succinate 40 MG/1 ML INJ IV SCH ×2 (09:49→21:40)
[2019-06-04] MEDS: HEPARIN 5,000 UNIT/1 ML VIAL SUB-Q SCH ×2 (09:49→21:40)
[2019-06-04] MEDS: FAMOTIDINE 20 MG TAB PO SCH (09:49)
--- NOTE | 2019-06-04 10:11 | XRay Report ---
CHEST 1 VIEW INDICATION / CLINICAL INFORMATION: VQ scan protocol. COMPARISON: Chest radiograph 05/31/2019 FINDINGS: SUPPORT DEVICES: None. HEART / MEDIASTINUM: Stable, prominent but accentuated by technique. LUNGS / PLEURA: Redemonstration of a left basilar pulmonary opacity with silhouetting of the left hem idiaphragm. Minimal opacity in the right lung base likely reflects subsegmental atelectasis. No pneum othorax. ADDITIONAL FINDINGS: No significant additional findings. IMPRESSION: 1. Persistent left basilar pulmonary opacity worrisome for pneumonia. 2. Mild right basilar subsegmental atelectasis. Signer Name: Nelia Townsend MD Signed: 06/04/2019 10:07 AM Workstation Name: [id number]
--- NOTE | 2019-06-04 12:43 | Nuclear Medicine Report ---
NUCLEAR MEDICINE PERFUSION LUNG SCAN INDICATION / CLINICAL INFORMATION: Acute hypoxemic resp failure; Elevated d-dimer. TECHNIQUE: 4.88 mCi of Tc-99m MAA were given by IV. COMPARISON: Chest radiograph dated 06/04/2019. CTA chest on 05/31/2019. FINDINGS: PERFUSION: There is a matched nonsegmental perfusion defect in the left lower lung corresponding to t he previously demonstrated left basilar opacity. No segmental perfusion defects are identified. ADDITIONAL FINDINGS: None. IMPRESSION: 1. Low probability for pulmonary embolism. Signer Name: Enoch Lopez MD Signed: 06/04/2019 12:38 PM Workstation Name: [id number]
--- NOTE | 2019-06-04 14:17 | Progress Note ---
Assessment and Plan Acute hypoxemic respiratory failure. Bilateral bibasilar left greater than right pneumonias. Right paratracheal consolidation or mass. History of obstructive sleep apnea. Acute chronic obstructive pulmonary disease exacerbation. Diabetes, poorly treated and poorly controlled. Hyperkalemia at presentation. Acute kidney injury that is new to this admission. - VQ scane negative; no further VTE work-up - ABG reviewed and addressed - continue NIV scheduled qhs with prn daytime use - Procalcitonin level pending but lactate WNL - continue empiric AB's therapy - continue supplemental oxygen as needed to keep O2 sat's > 90% - continue bronchodilators (ABBE & LABA) with pulmonary hygiene per RT - continue systemic steroids with slow taper - continue inhaled corticosteroids - PT/OT as tolerated - mobility protocols for pressure ulcer prophylaxis - GI & VTE prophylaxis - Flu & Pneumovax addressed per protocol - continue other care per attending / other consultants ... re-evaluate in am & prn Subjective Date of service: 06/04/19 Principal diagnosis: Ac. hypoxemic resp failure; Bibasilar L>R PNA; AE-COPD Interval history: Patient is seen today for: Acute hypoxemic resp failure; Bibasilar L>R PNA; R. paratracheal consolidation or mass; AE-COPD; Diabetes type II; Hyperkalemia; JAGDEEP Seen and examined at bedside; 24-hour events reviewed; nursing and respiratory care staff consulted; no adverse overnight events reported to me; resting peacefully in bed; likely element of dementia as does not remember sleeping on BIPAP; repeat ABG improved; No N/V/F/C Objective Vital Signs - 12hr 06/04/19 06/04/19 06/04/19 04:05 07:45 10:00 Temperature 98.0 F Pulse Rate 95 H Pulse Rate [ 97 H Anterior Bilateral Throughout] Respiratory 18 Rate Respiratory 18 Rate [Anterior Bilateral Throughout] Blood Pressure 115/68 O2 Sat by Pulse 96 95 Oximetry Constitutional: no acute distress, other (elderly looking obese AAM, normoce phalic with mild clinical hypoventilation at rest) Eyes: non-icteric ENT: oropharynx moist, other (Mallampati 3) Neck: supple, no lymphadenopathy, no JVD, other (large neck circumference) Effort: mildly labored Ascultation: Bilateral: diminished breath sounds, rales (bases) Percussion: Bilateral: not dull Cardiovascular: regular rate and rhythm Gastrointestinal: normoactive bowel sounds, soft, non-tender, non-distended, other (protuberant) Integumentary: normal Extremities: no cyanosis, pulses normal, no ischemia or petechiae, edema Neurologic: normal mental status, non-focal exam, pupils equal and round, CN II- XII normal, motor strength normal and Psychiatric: other (Affect flat; slow responses; + cognitive defect) CBC and BMP: 06/04/19 05:24 06/05/19 07:18 ABG, PT/INR, D-dimer: ABG POC ABG pH 7.266 (7.35-7.45) L 06/03/19 18:24 POC ABG pO2 74 (80-105) L 06/03/19 18:24 POC ABG HCO3 35.7 (22-26 mml/L) 06/03/19 18:24 POC ABG Total CO2 38 (23-27mmol/L) 06/03/19 18:24 POC ABG O2 Sat 91 06/03/19 18:24 PT/INR, D-dimer PT 14.1 Sec. (12.2-14.9) 05/31/19 12:21 INR 1.10 (0.87-1.13) 05/31/19 12:21 D-Dimer 4262.71 ng/mlDDU (0-234) H 05/31/19 08:59 Abnormal lab findings: Abnormal Labs 05/31/19 05/31/19 05/31/19 08:59 08:59 08:59 RBC 3.46 L Hgb 8.8 L Hct 28.8 L MCV 83 L MCH 26 L MCHC 31 L RDW 18.3 H [place] % (Auto) Eos % (Auto) [place] # Eos # Monocytes % (Manual) 11.0 H Eosinophils % (Manual) 8.0 H Lymphocytes # (Manual) 1.1 L Eosinophils # (Manual) 0.6 H APTT D-Dimer 4262.71 H Heparin Anti-Xa Level POC ABG pH POC ABG pO2 Sodium Potassium 5.4 H Carbon Dioxide 19 L BUN Creatinine Glucose 304 H POC Glucose Hemoglobin A1c Total Creatine Kinase 35 L Albumin 3.1 L 05/31/19 05/31/19 05/31/19 12:21 12:21 17:31 RBC Hgb 9.1 L Hct 29.6 L MCV MCH MCHC RDW [place] % (Auto) Eos % (Auto) [place] # Eos # Monocytes % (Manual) Eosinophils % (Manual) Lymphocytes # (Manual) Eosinophils # (Manual) APTT 41.1 H D-Dimer Heparin Anti-Xa Level POC ABG pH POC ABG pO2 Sodium Potassium Carbon Dioxide BUN Creatinine Glucose POC Glucose 329 H Hemoglobin A1c Total Creatine Kinase Albumin 05/31/19 05/31/19 05/31/19 19:22 19:22 21:43 RBC Hgb Hct MCV MCH MCHC RDW [place] % (Auto) Eos % (Auto) [place] # Eos # Monocytes % (Manual) Eosinophils % (Manual) Lymphocytes # (Manual) Eosinophils # (Manual) APTT D-Dimer Heparin Anti-Xa Level < 0.10 L POC ABG pH POC ABG pO2 Sodium Potassium Carbon Dioxide BUN Creatinine Glucose POC Glucose 365 H Hemoglobin A1c 11.2 H Total Creatine Kinase Albumin 05/31/19 06/01/19 06/01/19 23:14 03:51 03:51 RBC 3.57 L Hgb 9.0 L Hct 29.0 L MCV 81 L MCH 25 L MCHC 31 L RDW 17.9 H [place] % (Auto) 13.9 H Eos % (Auto) 6.7 H [place] # 1.0 H Eos # 0.5 H Monocytes % (Manual) Eosinophils % (Manual) Lymphocytes # (Manual) Eosinophils # (Manual) APTT D-Dimer Heparin Anti-Xa Level 0.10 L POC ABG pH POC ABG pO2 Sodium Potassium Carbon Dioxide BUN Creatinine Glucose 374 H POC Glucose Hemoglobin A1c Total Creatine Kinase Albumin 3.3 L 06/01/19 06/01/19 06/01/19 05:43 07:56 11:56 RBC Hgb Hct MCV MCH MCHC RDW [place] % (Auto) Eos % (Auto) [place] # Eos # Monocytes % (Manual) Eosinophils % (Manual) Lymphocytes # (Manual) Eosinophils # (Manual) APTT D-Dimer Heparin Anti-Xa Level < 0.10 L POC ABG pH POC ABG pO2 Sodium Potassium Carbon Dioxide BUN Creatinine Glucose POC Glucose 390 H 442 H Hemoglobin A1c Total Creatine Kinase Albumin 06/01/19 06/01/19 06/02/19 15:55 20:35 03:10 RBC Hgb 9.5 L Hct 31.5 L MCV 83 L MCH 25 L MCHC 30 L RDW 18.4 H [place] % (Auto) Eos % (Auto) [place] # Eos # Monocytes % (Manual) Eosinophils % (Manual) Lymphocytes # (Manual) Eosinophils # (Manual) APTT D-Dimer Heparin Anti-Xa Level POC ABG pH POC ABG pO2 Sodium Potassium Carbon Dioxide BUN Creatinine Glucose POC Glucose 290 H 254 H Hemoglobin A1c Total Creatine Kinase Albumin 06/02/19 06/02/19 06/02/19 03:10 07:45 11:15 RBC Hgb Hct MCV MCH MCHC RDW [place] % (Auto) Eos % (Auto) [place] # Eos # Monocytes % (Manual) Eosinophils % (Manual) Lymphocytes # (Manual) Eosinophils # (Manual) APTT D-Dimer Heparin Anti-Xa Level POC ABG pH POC ABG pO2 Sodium 148 H Potassium Carbon Dioxide BUN Creatinine 1.8 H D Glucose 159 H POC Glucose 222 H 383 H Hemoglobin A1c Total Creatine Kinase Albumin 06/02/19 06/02/19 06/03/19 15:41 22:06 00:41 RBC Hgb Hct MCV MCH MCHC RDW [place] % (Auto) Eos % (Auto) [place] # Eos # Monocytes % (Manual) Eosinophils % (Manual) Lymphocytes # (Manual) Eosinophils # (Manual) APTT D-Dimer Heparin Anti-Xa Level POC ABG pH POC ABG pO2 Sodium Potassium Carbon Dioxide BUN Creatinine Glucose POC Glucose 262 H 146 H 216 H Hemoglobin A1c Total Creatine Kinase Albumin 06/03/19 06/03/19 06/03/19 03:33 03:33 07:45 RBC Hgb 9.4 L Hct 31.3 L MCV MCH 25 L MCHC 30 L RDW 18.4 H [place] % (Auto) Eos % (Auto) [place] # Eos # Monocytes % (Manual) Eosinophils % (Manual) Lymphocytes # (Manual) Eosinophils # (Manual) APTT D-Dimer Heparin Anti-Xa Level POC ABG pH POC ABG pO2 Sodium 148 H Potassium Carbon Dioxide BUN Creatinine 2.1 H Glucose 225 H POC Glucose 217 H Hemoglobin A1c Total Creatine Kinase Albumin 06/03/19 06/03/19 06/03/19 11:51 16:50 18:24 RBC Hgb Hct MCV MCH MCHC RDW [place] % (Auto) Eos % (Auto) [place] # Eos # Monocytes % (Manual) Eosinophils % (Manual) Lymphocytes # (Manual) Eosinophils # (Manual) APTT D-Dimer Heparin Anti-Xa Level POC ABG pH 7.266 L POC ABG pO2 74 L Sodium Potassium Carbon Dioxide BUN Creatinine Glucose POC Glucose 233 H 210 H Hemoglobin A1c Total Creatine Kinase Albumin 06/03/19 06/04/19 06/04/19 20:59 05:24 05:24 RBC Hgb 9.3 L Hct 30.5 L MCV 83 L MCH 25 L MCHC 31 L RDW 18.1 H [place] % (Auto) Eos % (Auto) [place] # Eos # Monocytes % (Manual) Eosinophils % (Manual) Lymphocytes # (Manual) Eosinophils # (Manual) APTT D-Dimer Heparin Anti-Xa Level POC ABG pH POC ABG pO2 Sodium 147 H Potassium 5.1 H Carbon Dioxide BUN 23 H Creatinine 2.1 H Glucose 270 H POC Glucose 191 H Hemoglobin A1c Total Creatine Kinase Albumin 06/04/19 06/04/19 09:41 13:36 RBC Hgb Hct MCV MCH MCHC RDW [place] % (Auto) Eos % (Auto) [place] # Eos # Monocytes % (Manual) Eosinophils % (Manual) Lymphocytes # (Manual) Eosinophils # (Manual) APTT D-Dimer Heparin Anti-Xa Level POC ABG pH POC ABG pO2 Sodium Potassium Carbon Dioxide BUN Creatinine Glucose POC Glucose 301 H 354 H Hemoglobin A1c Total Creatine Kinase Albumin Additional Studies: VQ Low prob for P.E. Allied health notes reviewed: nursing
[2019-06-04] MEDS ORDERED: ZIPRASIDONE MESYLATE 20 MG VIAL IM ONE (17:00)
--- NOTE | 2019-06-04 18:22 | Progress Note ---
Assessment and Plan Assessment and plan: 58-year-old pleasant gentleman comes in for bilateral lower extremity swelling for one week and increasing sob for one week. Cough non productive. Patient has orthopnea. Also class IV NYHA symptoms.No fever or chills. Initial room air sats 85 percent . * V/Q negative * Tolerated BIPAP last night * Metabolic Encephalopathy this am. ? etiology, requested record still pending. Obtain Head CT * Kayxalate x 1 (1) Acute respiratory failure with Hypoxia Current Visit: Yes Status: Acute Qualifiers: Respiratory failure complication: hypoxia Qualified Code(s): J96.01 - Acute respiratory failure with hypoxia Plan to address problem: Cont O2 and Bipap as necessary. IV abx IV Solumedrol - taper and Duonebs Pulmonary consult- discussed, concerned for aspiration pneumonia. Echo reviewed. no evidence of endocarditis, No comment on Pulmonary pressures. (2) Bilateral pneumonia Current Visit: Yes Status: Acute Qualifiers: Lung location: unspecified part of lung Plan to address problem: IV abx and Duonebs for now Added LEVAQUIN (3) Exacerbation of CHF (congestive heart failure) Current Visit: Yes Status: Acute Qualifiers: Heart failure type: combined systolic and diastolic Qualified Code(s): I50.43 - Acute on chronic combined systolic (congestive) and diastolic (congestive) heart failure Plan to address problem: On IV Lasix Discussed with cardiology, NO clear evidence of acute heart failure exacerbation Still with Tachycardia, likely deconditioning. 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 Plan to address problem: Cont coverage Uncontrolled, will hold oral meds and start on NPH 70/30 increase insulin for better control (5) HTN (hypertension) Current Visit: Yes Status: Chronic Qualifiers: Hypertension type: essential hypertension Qualified Code(s): I10 - Essential (primary) hypertension Plan to address problem: Cont antihypertensives (6) JOE (obstructive sleep apnea) Current Visit: Yes Status: Chronic Plan to address problem: Cont CPAP (7) DVT prophylaxis Current Visit: Yes Status: Acute Plan to address problem: On Heparin and GI prophylaxis Discharge when hypoxia improves Discussed with Nursings staff to obtain home medication, This may hold the ramírez to his tachycardia. History Interval history: Patient seen and examined, reports improvement in respiratory symptoms, no chest pain, nausea or vomiting. still with lower ext edema, clinically improving today now with 92% saturation on 3 liters, ambulating with physical therapy. Pulmonary doctor concerned about some findings on the CT chest, will want to evaluate for possible Endocarditis vs Pulmonary HTN, Aspiration pneumonia on the right side,. Patient current with no fever, patient confused today Hospitalist Physical - Physical exam Narrative exam: General appearance: Present: No distress, well-nourished - EENT Eyes: Present: PERRL ENT: hearing intact, clear oral mucosa - Neck Neck: Present: supple, normal ROM - Respiratory Respiratory effort: normal Respiratory: bilateral: diminished, - Cardiovascular Rhythm:TACHYCARDIA Heart Sounds: Present: S1 & S2. Absent: rub, click - Extremities Extremities: no ischemia, pulses intact, pulses symmetrical, Extremity abnormal: edema (3plus) Peripheral Pulses: within normal limits - Abdominal General gastrointestinal: Present: soft, non-tender, non-distended, normal bowel sounds Male genitourinary: Present: normal - Integumentary Integumentary: Present: chronic changes in the lower ext, edema trace bilateral - Musculoskeletal Musculoskeletal: gait normal, strength equal bilaterally - Psychiatric Psychiatric: appropriate mood/affect, intact judgment & insight - Neurologic Neurologic: CNII-XII intact, moves all extremities - Constitutional Vitals: Temp Pulse Resp BP Pulse Ox 98.0 F 102 H 18 115/68 96 06/04/19 04:05 06/04/19 15:13 06/04/19 15:13 06/04/19 04:05 06/04/19 10:00 General appearance: Present: no acute distress Results - Labs CBC & Chem 7: 06/04/19 05:24 06/04/19 05:24 Labs: Laboratory Last Values WBC 8.3 K/mm3 (4.5-11.0) 06/04/19 05:24 RBC 3.70 M/mm3 (3.65-5.03) 06/04/19 05:24 Hgb 9.3 gm/dl (11.8-15.2) L 06/04/19 05:24 Hct 30.5 % (35.5-45.6) L 06/04/19 05:24 MCV 83 fl (84-94) L 06/04/19 05:24 MCH 25 pg (28-32) L 06/04/19 05:24 MCHC 31 % (32-34) L 06/04/19 05:24 RDW 18.1 % (13.2-15.2) H 06/04/19 05:24 Plt Count 387 K/mm3 (140-440) 06/04/19 05:24 Lymph % (Auto) 16.5 % (13.4-35.0) 06/01/19 03:51 [place] % (Auto) 13.9 % (0.0-7.3) H 06/01/19 03:51 Eos % (Auto) 6.7 % (0.0-4.3) H 06/01/19 03:51 Baso % (Auto) 0.8 % (0.0-1.8) 06/01/19 03:51 Lymph # 1.2 K/mm3 (1.2-5.4) 06/01/19 03:51 [place] # 1.0 K/mm3 (0.0-0.8) H 06/01/19 03:51 Eos # 0.5 K/mm3 (0.0-0.4) H 06/01/19 03:51 Baso # 0.1 K/mm3 (0.0-0.1) 06/01/19 03:51 Add Manual Diff Complete 05/31/19 08:59 Total Counted 100 05/31/19 08:59 Seg Neutrophils % 62.1 % (40.0-70.0) 06/01/19 03:51 Seg Neuts % (Manual) 67.0 % (40.0-70.0) 05/31/19 08:59 Band Neutrophils % 0 % 05/31/19 08:59 Lymphocytes % (Manual) 14.0 % (13.4-35.0) 05/31/19 08:59 Reactive Lymphs % (Man) 0 % 05/31/19 08:59 Monocytes % (Manual) 11.0 % (0.0-7.3) H 05/31/19 08:59 Eosinophils % (Manual) 8.0 % (0.0-4.3) H 05/31/19 08:59 Basophils % (Manual) 0 % (0.0-1.8) 05/31/19 08:59 Metamyelocytes % 0 % 05/31/19 08:59 Myelocytes % 0 % 05/31/19 08:59 Promyelocytes % 0 % 05/31/19 08:59 Blast Cells % 0 % 05/31/19 08:59 Nucleated RBC % Not Reportable 05/31/19 08:59 Seg Neutrophils # 4.3 K/mm3 (1.8-7.7) 06/01/19 03:51 Seg Neutrophils # Man 5.0 K/mm3 (1.8-7.7) 05/31/19 08:59 Band Neutrophils # 0.0 K/mm3 05/31/19 08:59 Lymphocytes # (Manual) 1.1 K/mm3 (1.2-5.4) L 05/31/19 08:59 Abs React Lymphs (Man) 0.0 K/mm3 05/31/19 08:59 Monocytes # (Manual) 0.8 K/mm3 (0.0-0.8) 05/31/19 08:59 Eosinophils # (Manual) 0.6 K/mm3 (0.0-0.4) H 05/31/19 08:59 Basophils # (Manual) 0.0 K/mm3 (0.0-0.1) 05/31/19 08:59 Metamyelocytes # 0.0 K/mm3 05/31/19 08:59 Myelocytes # 0.0 K/mm3 05/31/19 08:59 Promyelocytes # 0.0 K/mm3 05/31/19 08:59 Blast Cells # 0.0 K/mm3 05/31/19 08:59 WBC Morphology Not Reportable 05/31/19 08:59 Hypersegmented Neuts Not Reportable 05/31/19 08:59 Hyposegmented Neuts Not Reportable 05/31/19 08:59 Hypogranular Neuts Not Reportable 05/31/19 08:59 Smudge Cells Not Reportable 05/31/19 08:59 Toxic Granulation Not Reportable 05/31/19 08:59 Toxic Vacuolation Not Reportable 05/31/19 08:59 Dohle Bodies Not Reportable 05/31/19 08:59 Pelger-Huet Anomaly Not Reportable 05/31/19 08:59 Mervin Rods Not Reportable 05/31/19 08:59 Platelet Estimate Consistent w auto 05/31/19 08:59 Clumped Platelets Not Reportable 05/31/19 08:59 Plt Clumps, EDTA Not Reportable 05/31/19 08:59 Large Platelets Not Reportable 05/31/19 08:59 Giant Platelets Not Reportable 05/31/19 08:59 Platelet Satelliting Not Reportable 05/31/19 08:59 Plt Morphology Comment Not Reportable 05/31/19 08:59 RBC Morphology Not Reportable 05/31/19 08:59 Dimorphic RBCs Not Reportable 05/31/19 08:59 Polychromasia Not Reportable 05/31/19 08:59 Hypochromasia 1+ 05/31/19 08:59 Poikilocytosis Few 05/31/19 08:59 Anisocytosis Few 05/31/19 08:59 Microcytosis Not Reportable 05/31/19 08:59 Macrocytosis Not Reportable 05/31/19 08:59 Spherocytes Not Reportable 05/31/19 08:59 Pappenheimer Bodies Not Reportable 05/31/19 08:59 Sickle Cells Not Reportable 05/31/19 08:59 Target Cells Not Reportable 05/31/19 08:59 Tear Drop Cells Not Reportable 05/31/19 08:59 Ovalocytes Few 05/31/19 08:59 Helmet Cells Not Reportable 05/31/19 08:59 Brink-Tulia Bodies Not Reportable 05/31/19 08:59 [place] Rings Not Reportable 05/31/19 08:59 Ileana Cells Not Reportable 05/31/19 08:59 Bite Cells Not Reportable 05/31/19 08:59 Crenated Cell Not Reportable 05/31/19 08:59 Elliptocytes Rare 05/31/19 08:59 Acanthocytes (Spur) Not Reportable 05/31/19 08:59 Rouleaux Not Reportable 05/31/19 08:59 Hemoglobin C Crystals Not Reportable 05/31/19 08:59 Schistocytes Not Reportable 05/31/19 08:59 Malaria parasites Not Reportable 05/31/19 08:59 Gianni Bodies Not Reportable 05/31/19 08:59 Hem Pathologist Commnt No 05/31/19 08:59 PT 14.1 Sec. (12.2-14.9) 05/31/19 12:21 INR 1.10 (0.87-1.13) 05/31/19 12:21 APTT 41.1 Sec. (24.2-36.6) H 05/31/19 12:21 D-Dimer 4262.71 ng/mlDDU (0-234) H 05/31/19 08:59 Heparin Anti-Xa Level < 0.10 U.I./ml (0.3-0.7) L 06/01/19 05:43 POC ABG pH 7.360 (7.35-7.45) 06/04/19 16:24 POC ABG pCO2 57.3 (35-45) H 06/04/19 16:24 POC ABG pO2 65 (80-105) L 06/04/19 16:24 POC ABG HCO3 32.4 (22-26 mml/L) 06/04/19 16:24 POC ABG Total CO2 34 (23-27mmol/L) 06/04/19 16:24 POC ABG O2 Sat 91 06/04/19 16:24 POC ABG Base Excess 7 ((-2) - (+3)mmol/L) 06/04/19 16:24 FiO2 32 % 06/04/19 16:24 Sodium 147 mmol/L (137-145) H 06/04/19 05:24 Potassium 5.1 mmol/L (3.6-5.0) H 06/04/19 05:24 Chloride 104.6 mmol/L (98-107) 06/04/19 05:24 Carbon Dioxide 30 mmol/L (22-30) 06/04/19 05:24 Anion Gap 18 mmol/L 06/04/19 05:24 BUN 23 mg/dL (9-20) H 06/04/19 05:24 Creatinine 2.1 mg/dL (0.8-1.5) H 06/04/19 05:24 Estimated GFR 39 ml/min 06/04/19 05:24 BUN/Creatinine Ratio 11 % 06/04/19 05:24 Glucose 270 mg/dL (75-100) H 06/04/19 05:24 POC Glucose 381 (70-105) H 06/04/19 16:52 Hemoglobin A1c 11.2 % (4-6) H 05/31/19 19:22 Lactic Acid 1.90 mmol/L (0.7-2.0) 06/03/19 09:59 Calcium 9.1 mg/dL (8.4-10.2) 06/04/19 05:24 Magnesium 1.70 mg/dL (1.7-2.3) 05/31/19 08:59 Total Bilirubin 0.20 mg/dL (0.1-1.2) 06/01/19 03:51 Direct Bilirubin < 0.2 mg/dL (0-0.2) 05/31/19 08:59 Indirect Bilirubin 0.0 mg/dL 05/31/19 08:59 AST 29 units/L (5-40) 06/01/19 03:51 ALT 22 units/L (7-56) 06/01/19 03:51 Alkaline Phosphatase 106 units/L (35-129) 06/01/19 03:51 Total Creatine Kinase 35 units/L (55-170) L 05/31/19 08:59 CK-MB (CK-2) < 1.0 ng/mL (0.0-4.0) 05/31/19 08:59 CK-MB (CK-2) Rel Index 2.8 (0-4) 05/31/19 08:59 Troponin T < 0.010 ng/mL (0.00-0.029) 05/31/19 08:59 NT-Pro-B Natriuret Pep 305.5 pg/mL (0-900) 05/31/19 08:59 Total Protein 7.8 g/dL (6.3-8.2) 06/01/19 03:51 Albumin 3.3 g/dL (3.9-5) L 06/01/19 03:51 Albumin/Globulin Ratio 0.7 % 06/01/19 03:51 Urine Color Yellow (Yellow) 05/31/19 Unknown Urine Turbidity Clear (Clear) 05/31/19 Unknown Urine pH 6.0 (5.0-7.0) 05/31/19 Unknown Ur Specific [place] 1.010 (1.003-1.030) 05/31/19 Unknown Urine Protein 30 mg/dl mg/dL (Negative) 05/31/19 Unknown Urine Glucose (UA) Negative mg/dL (Negative) 05/31/19 Unknown Urine Ketones Negative mg/dL (Negative) 05/31/19 Unknown Urine Blood Negative (Negative) 05/31/19 Unknown Urine Nitrite Negative (Negative) 05/31/19 Unknown Ur Reducing Substances Not Reportable 05/31/19 Unknown Urine Bilirubin Negative (Negative) 05/31/19 Unknown Urine Ictotest Not Reportable 05/31/19 Unknown Urine Urobilinogen 0.0 mg/dL (<2.0) 05/31/19 Unknown Ur Leukocyte Esterase Negative (Negative) 05/31/19 Unknown Urine WBC (Auto) < 1.0 /HPF (0.0-6.0) 05/31/19 Unknown Urine RBC (Auto) < 1.0 /HPF (0.0-6.0) 05/31/19 Unknown U Epithel Cells (Auto) 1.0 /HPF (0-13.0) 05/31/19 Unknown Urine Bacteria (Auto) 1+ /HPF (Negative) 05/31/19 Unknown Urine Mucus Few /HPF 05/31/19 Unknown Blood Type A POSITIVE 05/31/19 12:21 Antibody Screen Negative 05/31/19 12:21 Active Medications - Current Medications Current Medications: Generic Name Dose Route Start Last Admin Trade Name Freq PRN Reason Stop Dose Admin Albuterol 2.5 mg 06/01/19 16:19 Proventil IH Q4HRT PRN Shortness Of Breath Albuterol/Ipratropium 1 ampul 06/01/19 20:00 06/04/19 16:29 Duoneb *Not For Prn Use* IH Not Given TIDRT SHANEL Arformoterol Tartrate 15 mcg 06/03/19 20:00 06/04/19 07:53 Brovana Nebu IH 15 mcg Q12HRT SHANEL Administration Budesonide 0.5 mg 06/03/19 20:00 06/04/19 07:53 Pulmicort IH 0.5 mg Q12HRT SHANEL Administration Famotidine 20 mg 06/03/19 18:00 06/04/19 09:49 Pepcid PO 20 mg QDAY SHANEL Administration Glimepiride 2 mg 06/01/19 08:00 06/04/19 08:00 Amaryl PO 2 mg QDDIAB SHANEL Administration Heparin Sodium (Porcine) 5,000 unit 05/31/19 22:00 06/04/19 09:49 Heparin SUB-Q 5,000 unit Q12HR SHANEL Administration Hydromorphone HCl 0.5 mg 05/31/19 18:40 Dilaudid IV Q3H PRN Pain , Severe (7-10) Levofloxacin/Dextrose 750 mg in 150 mls @ 100 mls/hr 06/03/19 12:00 06/03/19 12:55 Levaquin 750mg/150ml IV 100 mls/hr Q48H SHANEL Administration Protocol Insulin Human Lispro 0 unit 05/31/19 23:30 06/04/19 17:11 Humalog SUB-Q 10 unit ACHS SHANEL Administration Protocol Insulin Human Regular 12 units 06/04/19 18:16 Humulin R SUB-Q 06/04/19 18:17 ONCE ONE Methylprednisolone Sodium Succinate 40 mg 06/03/19 22:00 06/04/19 09:49 Solu-Medrol IV 40 mg Q12HR SHANEL Administration Metoclopramide HCl 10 mg 05/31/19 18:40 Reglan IV Q6H PRN Nausea And Vomiting Ondansetron HCl 4 mg 05/31/19 18:40 Zofran IV Q8H PRN Nausea And Vomiting Oxycodone/Acetaminophen 1 tab 05/31/19 18:40 06/03/19 12:55 Percocet 5/325 PO 1 tab Q6H PRN Administration Pain, Moderate (4-6) Sodium Chloride 10 ml 05/31/19 22:00 06/04/19 11:07 Sodium Chloride Flush Syringe 10 Ml IV 10 ml BID SHANEL Administration Sodium Chloride 10 ml 05/31/19 18:40 Sodium Chloride Flush Syringe 10 Ml IV PRN PRN LINE FLUSH
[2019-06-04] MEDS ORDERED: INSULIN REGULAR, HUMAN 100 UNITS/1 ML SUB-Q ONE (19:00)
[2019-06-04] MEDS ORDERED: SODIUM POLYSTYRENE 15 GM/60 ML ORAL LIQD PO ONE (19:00)
--- NOTE | 2019-06-04 19:35 | Cat Scan Report ---
CT head/brain wo con INDICATION: headache. TECHNIQUE: Routine CT head without contrast. All CT scans at this location are performed using CT dos e reduction for ALARA by means of automated exposure control. COMPARISON: None. FINDINGS: BRAIN / INTRACRANIAL CONTENTS: No acute hemorrhage, mass effect, midline shift, or hydrocephalus. No appreciable acute large territorial or lacunar infarct. No chronic infarct. Moderate generalized pare nchymal volume loss.. ORBITS: No significant abnormality of visualized orbits. SINUSES / MASTOIDS: No significant abnormality of visualized sinuses and mastoid air cells. ADDITIONAL FINDINGS: None. IMPRESSION: 1. No acute intracranial abnormality on noncontrast CT of the brain. Signer Name: Nelia Townsend MD Signed: 06/04/2019 7:30 PM Workstation Name: [id number]
[2019-06-05] MEDS ORDERED: INSULIN REGULAR, HUMAN 100 UNITS/1 ML SUB-Q ONE ×2 (01:16→18:32)
[2019-06-05] MEDS ORDERED: INSULIN LISPRO 100 UNIT/ML SUB-Q ONE (04:44)
[2019-06-05] MEDS ORDERED: SODIUM CHLORIDE 0.9% 500 ML 500 ML IV ONE (07:12)
[2019-06-05 07:14] LABS: Calcium 9.4 mg/dL (8.4-10.2)
[2019-06-05] MEDS: BUDESONIDE 0.5 MG/2 ML NEBU IH SCH ×2 (07:45→20:14)
[2019-06-05] MEDS: IPRATROPIUM/ALBUTEROL SULFATE 3 ML AMPUL.NEB IH SCH ×3 (07:45→20:14)
[2019-06-05] MEDS: ARFORMOTEROL 15 MCG/2 ML NEBU IH SCH ×2 (07:45→20:15)
[2019-06-05] MEDS ORDERED: INSULIN NPH/REGULAR 70/30 INJ SUB-Q SCH ×3 (08:00→17:00)
[2019-06-05] MEDS: INSULIN LISPRO 100 UNIT/ML SUB-Q SCH ×5 (08:47→21:22)
[2019-06-05] MEDS: FAMOTIDINE 20 MG TAB PO SCH (09:41)
[2019-06-05] MEDS: predniSONE 20 MG TAB PO SCH (09:42)
[2019-06-05] MEDS: HEPARIN 5,000 UNIT/1 ML VIAL SUB-Q SCH ×2 (09:43→21:20)
--- NOTE | 2019-06-05 13:55 | Progress Note ---
Assessment and Plan Acute hypoxemic respiratory failure. Bilateral bibasilar left greater than right pneumonias. Right paratracheal consolidation or mass. History of obstructive sleep apnea. Acute chronic obstructive pulmonary disease exacerbation. Diabetes, poorly treated and poorly controlled. Hyperkalemia at presentation. Acute kidney injury that is new to this admission. - continue current care - repeat CXR in 24-48 hours - AMS work-up ongoing per attending - to resume some chronic home med's including thyroid supplementation - VQ scan negative; no further VTE work-up - ABG reviewed and addressed - continue NIV scheduled qhs with prn daytime use - Procalcitonin level pending but lactate WNL - complete empiric AB's therapy - continue supplemental oxygen as needed to keep O2 sat's > 90% - continue bronchodilators (ABBE & LABA) with pulmonary hygiene per RT - continue systemic steroids with slow taper - continue inhaled corticosteroids - PT/OT as tolerated - mobility protocols for pressure ulcer prophylaxis - GI & VTE prophylaxis - Flu & Pneumovax addressed per protocol - continue other care per attending / other consultants ... re-evaluate in am & prn Subjective Date of service: 06/05/19 Principal diagnosis: Ac. hypoxemic resp failure; Bibasilar L>R PNA; AE-COPD Interval history: Patient is seen today for: Acute hypoxemic resp failure; Bibasilar L>R PNA; R. paratracheal consolidation or mass; AE-COPD; Diabetes type II; Hyperkalemia; JAGDEEP Seen and examined at bedside; 24-hour events reviewed; nursing and respiratory care staff consulted; no adverse overnight events reported to me; resting peacefully in bed; still with dementia / delirium; CT brain ordered and will follow; remains on supplemental oxygen; tolerating BIPAP; No emesis or overt aspiration reported Objective Vital Signs - 12hr 06/05/19 06/05/19 06/05/19 04:43 07:34 07:45 Temperature 97.2 F L 97.9 F Pulse Rate 50 L 51 L Pulse Rate [ 98 H Anterior Bilateral Throughout] Pulse Rate [ Apical] Pulse Rate [ Left Radial] Pulse Rate [ 98 H Posterior Bilateral Throughout] Pulse Rate [ Right Radial] Respiratory 20 18 Rate Respiratory 18 Rate [Anterior Bilateral Throughout] Respiratory 20 Rate [Posterior Bilateral Throughout] Blood Pressure 118/61 115/63 O2 Sat by Pulse 100 99 Oximetry 06/05/19 06/05/19 06/05/19 07:55 09:00 10:00 Temperature Pulse Rate 55 L Pulse Rate [ Anterior Bilateral Throughout] Pulse Rate [ 98 H Apical] Pulse Rate [ 98 H Left Radial] Pulse Rate [ Posterior Bilateral Throughout] Pulse Rate [ 98 H Right Radial] Respiratory 25 H Rate Respiratory Rate [Anterior Bilateral Throughout] Respiratory Rate [Posterior Bilateral Throughout] Blood Pressure O2 Sat by Pulse 97 95 Oximetry 06/05/19 11:38 Temperature Pulse Rate 50 L Pulse Rate [ Anterior Bilateral Throughout] Pulse Rate [ Apical] Pulse Rate [ Left Radial] Pulse Rate [ Posterior Bilateral Throughout] Pulse Rate [ Right Radial] Respiratory 18 Rate Respiratory Rate [Anterior Bilateral Throughout] Respiratory Rate [Posterior Bilateral Throughout] Blood Pressure 111/62 O2 Sat by Pulse 99 Oximetry Constitutional: no acute distress, other (elderly looking obese AAM, normocephalic with mild clinical hypoventilation at rest) Eyes: non-icteric ENT: oropharynx moist, other (Mallampati 3) Neck: supple, no lymphadenopathy, no JVD, other (large neck circumference) Effort: mildly labored Ascultation: Bilateral: diminished breath sounds, rales (bases) Percussion: Bilateral: not dull Cardiovascular: regular rate and rhythm Gastrointestinal: normoactive bowel sounds, soft, non-tender, non-distended, other (protuberant) Integumentary: normal Extremities: no cyanosis, pulses normal, no ischemia or petechiae, edema Neurologic: normal mental status, non-focal exam, pupils equal and round, CN II- XII normal, motor strength normal and Psychiatric: other (Affect flat; slow responses; + cognitive defect) CBC and BMP: 06/06/19 03:24 06/06/19 13:22 ABG, PT/INR, D-dimer: ABG POC ABG pH 7.360 (7.35-7.45) 06/04/19 16:24 POC ABG pCO2 57.3 (35-45) H 06/04/19 16:24 POC ABG pO2 65 (80-105) L 06/04/19 16:24 POC ABG HCO3 32.4 (22-26 mml/L) 06/04/19 16:24 POC ABG Total CO2 34 (23-27mmol/L) 06/04/19 16:24 POC ABG O2 Sat 91 06/04/19 16:24 PT/INR, D-dimer PT 14.1 Sec. (12.2-14.9) 05/31/19 12:21 INR 1.10 (0.87-1.13) 05/31/19 12:21 D-Dimer 4262.71 ng/mlDDU (0-234) H 05/31/19 08:59 Abnormal lab findings: Abnormal Labs 05/31/19 05/31/19 05/31/19 08:59 08:59 08:59 RBC 3.46 L Hgb 8.8 L Hct 28.8 L MCV 83 L MCH 26 L MCHC 31 L RDW 18.3 H [place] % (Auto) Eos % (Auto) [place] # Eos # Monocytes % (Manual) 11.0 H Eosinophils % (Manual) 8.0 H Lymphocytes # (Manual) 1.1 L Eosinophils # (Manual) 0.6 H APTT D-Dimer 4262.71 H Heparin Anti-Xa Level POC ABG pH POC ABG pCO2 POC ABG pO2 Sodium Potassium 5.4 H Chloride Carbon Dioxide 19 L BUN Creatinine Glucose 304 H POC Glucose Hemoglobin A1c Total Creatine Kinase 35 L Albumin 3.1 L 05/31/19 05/31/19 05/31/19 12:21 12:21 17:31 RBC Hgb 9.1 L Hct 29.6 L MCV MCH MCHC RDW [place] % (Auto) Eos % (Auto) [place] # Eos # Monocytes % (Manual) Eosinophils % (Manual) Lymphocytes # (Manual) Eosinophils # (Manual) APTT 41.1 H D-Dimer Heparin Anti-Xa Level POC ABG pH POC ABG pCO2 POC ABG pO2 Sodium Potassium Chloride Carbon Dioxide BUN Creatinine Glucose POC Glucose 329 H Hemoglobin A1c Total Creatine Kinase Albumin 05/31/19 05/31/19 05/31/19 19:22 19:22 21:43 RBC Hgb Hct MCV MCH MCHC RDW [place] % (Auto) Eos % (Auto) [place] # Eos # Monocytes % (Manual) Eosinophils % (Manual) Lymphocytes # (Manual) Eosinophils # (Manual) APTT D-Dimer Heparin Anti-Xa Level < 0.10 L POC ABG pH POC ABG pCO2 POC ABG pO2 Sodium Potassium Chloride Carbon Dioxide BUN Creatinine Glucose POC Glucose 365 H Hemoglobin A1c 11.2 H Total Creatine Kinase Albumin 1106/01/19 06/01/19 23:14 03:51 03:51 RBC 3.57 L Hgb 9.0 L Hct 29.0 L MCV 81 L MCH 25 L MCHC 31 L RDW 17.9 H [place] % (Auto) 13.9 H Eos % (Auto) 6.7 H [place] # 1.0 H Eos # 0.5 H Monocytes % (Manual) Eosinophils % (Manual) Lymphocytes # (Manual) Eosinophils # (Manual) APTT D-Dimer Heparin Anti-Xa Level 0.10 L POC ABG pH POC ABG pCO2 POC ABG pO2 Sodium Potassium Chloride Carbon Dioxide BUN Creatinine Glucose 374 H POC Glucose Hemoglobin A1c Total Creatine Kinase Albumin 3.3 L 06/01/19 06/01/19 06/01/19 05:43 07:56 11:56 RBC Hgb Hct MCV MCH MCHC RDW [place] % (Auto) Eos % (Auto) [place] # Eos # Monocytes % (Manual) Eosinophils % (Manual) Lymphocytes # (Manual) Eosinophils # (Manual) APTT D-Dimer Heparin Anti-Xa Level < 0.10 L POC ABG pH POC ABG pCO2 POC ABG pO2 Sodium Potassium Chloride Carbon Dioxide BUN Creatinine Glucose POC Glucose 390 H 442 H Hemoglobin A1c Total Creatine Kinase Albumin 06/01/19 06/01/19 06/02/19 15:55 20:35 03:10 RBC Hgb 9.5 L Hct 31.5 L MCV 83 L MCH 25 L MCHC 30 L RDW 18.4 H [place] % (Auto) Eos % (Auto) [place] # Eos # Monocytes % (Manual) Eosinophils % (Manual) Lymphocytes # (Manual) Eosinophils # (Manual) APTT D-Dimer Heparin Anti-Xa Level POC ABG pH POC ABG pCO2 POC ABG pO2 Sodium Potassium Chloride Carbon Dioxide BUN Creatinine Glucose POC Glucose 290 H 254 H Hemoglobin A1c Total Creatine Kinase Albumin 06/02/19 06/02/19 06/02/19 03:10 07:45 11:15 RBC Hgb Hct MCV MCH MCHC RDW [place] % (Auto) Eos % (Auto) [place] # Eos # Monocytes % (Manual) Eosinophils % (Manual) Lymphocytes # (Manual) Eosinophils # (Manual) APTT D-Dimer Heparin Anti-Xa Level POC ABG pH POC ABG pCO2 POC ABG pO2 Sodium 148 H Potassium Chloride Carbon Dioxide BUN Creatinine 1.8 H D Glucose 159 H POC Glucose 222 H 383 H Hemoglobin A1c Total Creatine Kinase Albumin 06/02/19 06/02/19 06/03/19 15:41 22:06 00:41 RBC Hgb Hct MCV MCH MCHC RDW [place] % (Auto) Eos % (Auto) [place] # Eos # Monocytes % (Manual) Eosinophils % (Manual) Lymphocytes # (Manual) Eosinophils # (Manual) APTT D-Dimer Heparin Anti-Xa Level POC ABG pH POC ABG pCO2 POC ABG pO2 Sodium Potassium Chloride Carbon Dioxide BUN Creatinine Glucose POC Glucose 262 H 146 H 216 H Hemoglobin A1c Total Creatine Kinase Albumin 06/03/19 06/03/19 06/03/19 03:33 03:33 07:45 RBC Hgb 9.4 L Hct 31.3 L MCV MCH 25 L MCHC 30 L RDW 18.4 H [place] % (Auto) Eos % (Auto) [place] # Eos # Monocytes % (Manual) Eosinophils % (Manual) Lymphocytes # (Manual) Eosinophils # (Manual) APTT D-Dimer Heparin Anti-Xa Level POC ABG pH POC ABG pCO2 POC ABG pO2 Sodium 148 H Potassium Chloride Carbon Dioxide BUN Creatinine 2.1 H Glucose 225 H POC Glucose 217 H Hemoglobin A1c Total Creatine Kinase Albumin 06/03/19 06/03/19 06/03/19 11:51 16:50 18:24 RBC Hgb Hct MCV MCH MCHC RDW [place] % (Auto) Eos % (Auto) [place] # Eos # Monocytes % (Manual) Eosinophils % (Manual) Lymphocytes # (Manual) Eosinophils # (Manual) APTT D-Dimer Heparin Anti-Xa Level POC ABG pH 7.266 L POC ABG pCO2 POC ABG pO2 74 L Sodium Potassium Chloride Carbon Dioxide BUN Creatinine Glucose POC Glucose 233 H 210 H Hemoglobin A1c Total Creatine Kinase Albumin 06/03/19 06/04/19 06/04/19 20:59 05:24 05:24 RBC Hgb 9.3 L Hct 30.5 L MCV 83 L MCH 25 L MCHC 31 L RDW 18.1 H [place] % (Auto) Eos % (Auto) [place] # Eos # Monocytes % (Manual) Eosinophils % (Manual) Lymphocytes # (Manual) Eosinophils # (Manual) APTT D-Dimer Heparin Anti-Xa Level POC ABG pH POC ABG pCO2 POC ABG pO2 Sodium 147 H Potassium 5.1 H Chloride Carbon Dioxide BUN 23 H Creatinine 2.1 H Glucose 270 H POC Glucose 191 H Hemoglobin A1c Total Creatine Kinase Albumin 06/04/19 06/04/19 06/04/19 09:41 13:36 16:24 RBC Hgb Hct MCV MCH MCHC RDW [place] % (Auto) Eos % (Auto) [place] # Eos # Monocytes % (Manual) Eosinophils % (Manual) Lymphocytes # (Manual) Eosinophils # (Manual) APTT D-Dimer Heparin Anti-Xa Level POC ABG pH POC ABG pCO2 57.3 H POC ABG pO2 65 L Sodium Potassium Chloride Carbon Dioxide BUN Creatinine Glucose POC Glucose 301 H 354 H Hemoglobin A1c Total Creatine Kinase Albumin 06/04/19 06/04/19 06/05/19 16:52 21:00 01:03 RBC Hgb Hct MCV MCH MCHC RDW [place] % (Auto) Eos % (Auto) [place] # Eos # Monocytes % (Manual) Eosinophils % (Manual) Lymphocytes # (Manual) Eosinophils # (Manual) APTT D-Dimer Heparin Anti-Xa Level POC ABG pH POC ABG pCO2 POC ABG pO2 Sodium Potassium Chloride Carbon Dioxide BUN Creatinine Glucose POC Glucose 381 H 496 H > 500 H Hemoglobin A1c Total Creatine Kinase Albumin 06/05/19 06/05/19 06/05/19 01:14 03:41 06:23 RBC Hgb Hct MCV MCH MCHC RDW [place] % (Auto) Eos % (Auto) [place] # Eos # Monocytes % (Manual) Eosinophils % (Manual) Lymphocytes # (Manual) Eosinophils # (Manual) APTT D-Dimer Heparin Anti-Xa Level POC ABG pH POC ABG pCO2 POC ABG pO2 Sodium 147 H Potassium Chloride 107.7 H Carbon Dioxide BUN 34 H Creatinine 1.9 H Glucose 621 H* 605 H* POC Glucose 485 H Hemoglobin A1c Total Creatine Kinase Albumin 06/05/19 06/05/19 06/05/19 07:04 07:14 07:18 RBC Hgb Hct MCV MCH MCHC RDW [place] % (Auto) Eos % (Auto) [place] # Eos # Monocytes % (Manual) Eosinophils % (Manual) Lymphocytes # (Manual) Eosinophils # (Manual) APTT D-Dimer Heparin Anti-Xa Level POC ABG pH POC ABG pCO2 POC ABG pO2 Sodium Potassium Chloride Carbon Dioxide BUN Creatinine Glucose 589 H* POC Glucose > 500 H > 500 H Hemoglobin A1c Total Creatine Kinase Albumin 06/05/19 06/05/19 06/05/19 08:49 09:17 11:18 RBC Hgb Hct MCV MCH MCHC RDW [place] % (Auto) Eos % (Auto) [place] # Eos # Monocytes % (Manual) Eosinophils % (Manual) Lymphocytes # (Manual) Eosinophils # (Manual) APTT D-Dimer Heparin Anti-Xa Level POC ABG pH POC ABG pCO2 POC ABG pO2 Sodium Potassium Chloride Carbon Dioxide BUN Creatinine Glucose POC Glucose > 500 H 489 H 491 H Hemoglobin A1c Total Creatine Kinase Albumin Allied health notes reviewed: nursing
[2019-06-05] MEDS ORDERED: LANTUS 25 UNIT SQ SCH (15:44)
--- NOTE | 2019-06-05 15:59 | Progress Note ---
Assessment and Plan Assessment and plan: 58-year-old pleasant gentleman comes in for bilateral lower extremity swelling for one week and increasing sob for one week. Cough non productive. Patient has orthopnea. Also class IV NYHA symptoms.No fever or chills. Initial room air sats 85 percent . * V/Q negative * Tolerated BIPAP last night * Metabolic Encephalopathy this am. ? etiology, requested record still pending. Obtain Head CT * Kayxalate x 1 * Bradycardia- ekgs, PROLONG DE interval- Cardiology following * Unfortunately was not notified of requested updated home meds. Reviewed and adjustment made to insulin. Also discussed with Nursing staff * IF HR, Blood glucose remains stable will plan discharge in am * Check TSH and free t4. Restart home dose Synthroid. * Discussed with Hog Tender (1) Acute respiratory failure with Hypoxia Current Visit: Yes Status: Acute Qualifiers: Respiratory failure complication: hypoxia Qualified Code(s): J96.01 - Acute respiratory failure with hypoxia Plan to address problem: Cont O2 and Bipap as necessary. IV abx IV Solumedrol - taper and Duonebs Pulmonary consult- discussed, concerned for aspiration pneumonia. Echo reviewed. no evidence of endocarditis, No comment on Pulmonary pressures. (2) Bilateral pneumonia Current Visit: Yes Status: Acute Qualifiers: Lung location: unspecified part of lung Plan to address problem: IV abx and Duonebs for now Added LEVAQUIN (3) Exacerbation of CHF (congestive heart failure) Current Visit: Yes Status: Acute Qualifiers: Heart failure type: combined systolic and diastolic Qualified Code(s): I50.43 - Acute on chronic combined systolic (congestive) and diastolic (congestive) heart failure Plan to address problem: On IV Lasix Discussed with cardiology, NO clear evidence of acute heart failure exacerbation (4) T2DM (type 2 diabetes mellitus) Current Visit: Yes Status: Chronic Qualifiers: 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 insulin use status Plan to address problem: Cont coverage Uncontrolled, will hold oral meds and start on NPH 70/30 increase insulin for better control (5) HTN (hypertension) Current Visit: Yes Status: Chronic Qualifiers: Hypertension type: essential hypertension Qualified Code(s): I10 - Essential (primary) hypertension Plan to address problem: Cont antihypertensives (6) JOE (obstructive sleep apnea) Current Visit: Yes Status: Chronic Plan to address problem: Cont CPAP (7) DVT prophylaxis Current Visit: Yes Status: Acute Plan to address problem: On Heparin and GI prophylaxis Discharge when hypoxia improves Discussed with Nursings staff to obtain home medication, This may hold the ramírez to his tachycardia. History Interval history: Patient seen and examined, reports improvement in respiratory symptoms, no chest pain, nausea or vomiting. still with lower ext edema, OVERNIGHT DID WELL ON BIPAP, but still with intermittent confusion, NOTED TO Have bradycardia. Hospitalist Physical - Physical exam Narrative exam: General appearance: Present: No distress, well-nourished - EENT Eyes: Present: PERRL ENT: hearing intact, clear oral mucosa - Neck Neck: Present: supple, normal ROM - Respiratory Respiratory effort: normal Respiratory: bilateral: diminished, - Cardiovascular Rhythm:TACHYCARDIA Heart Sounds: Present: S1 & S2. Absent: rub, click - Extremities Extremities: no ischemia, pulses intact, pulses symmetrical, Calr Extremity abnormal: edema (2plus) Peripheral Pulses: within normal limits - Abdominal General gastrointestinal: Present: soft, non-tender, non-distended, normal bowel sounds Male genitourinary: Present: normal - Integumentary Integumentary: Present: chronic changes in the lower ext, edema trace bilateral - Musculoskeletal Musculoskeletal: gait normal, strength equal bilaterally - Psychiatric Psychiatric: appropriate mood/affect, intact judgment & insight - Neurologic Neurologic: CNII-XII intact, moves all extremities - Constitutional Vitals: Temp Pulse Resp BP Pulse Ox 98.0 F 107 H 18 140/80 93 06/05/19 15:46 06/05/19 15:46 06/05/19 15:46 06/05/19 15:46 06/05/19 15:46 General appearance: Present: no acute distress Results - Labs CBC & Chem 7: 06/04/19 05:24 06/05/19 07:18 Labs: Laboratory Last Values WBC 8.3 K/mm3 (4.5-11.0) 06/04/19 05:24 RBC 3.70 M/mm3 (3.65-5.03) 06/04/19 05:24 Hgb 9.3 gm/dl (11.8-15.2) L 06/04/19 05:24 Hct 30.5 % (35.5-45.6) L 06/04/19 05:24 MCV 83 fl (84-94) L 06/04/19 05:24 MCH 25 pg (28-32) L 06/04/19 05:24 MCHC 31 % (32-34) L 06/04/19 05:24 RDW 18.1 % (13.2-15.2) H 06/04/19 05:24 Plt Count 387 K/mm3 (140-440) 06/04/19 05:24 Lymph % (Auto) 16.5 % (13.4-35.0) 06/01/19 03:51 [place] % (Auto) 13.9 % (0.0-7.3) H 06/01/19 03:51 Eos % (Auto) 6.7 % (0.0-4.3) H 06/01/19 03:51 Baso % (Auto) 0.8 % (0.0-1.8) 06/01/19 03:51 Lymph # 1.2 K/mm3 (1.2-5.4) 06/01/19 03:51 [place] # 1.0 K/mm3 (0.0-0.8) H 06/01/19 03:51 Eos # 0.5 K/mm3 (0.0-0.4) H 06/01/19 03:51 Baso # 0.1 K/mm3 (0.0-0.1) 06/01/19 03:51 Add Manual Diff Complete 05/31/19 08:59 Total Counted 100 05/31/19 08:59 Seg Neutrophils % 62.1 % (40.0-70.0) 06/01/19 03:51 Seg Neuts % (Manual) 67.0 % (40.0-70.0) 05/31/19 08:59 Band Neutrophils % 0 % 05/31/19 08:59 Lymphocytes % (Manual) 14.0 % (13.4-35.0) 05/31/19 08:59 Reactive Lymphs % (Man) 0 % 05/31/19 08:59 Monocytes % (Manual) 11.0 % (0.0-7.3) H 05/31/19 08:59 Eosinophils % (Manual) 8.0 % (0.0-4.3) H 05/31/19 08:59 Basophils % (Manual) 0 % (0.0-1.8) 05/31/19 08:59 Metamyelocytes % 0 % 05/31/19 08:59 Myelocytes % 0 % 05/31/19 08:59 Promyelocytes % 0 % 05/31/19 08:59 Blast Cells % 0 % 05/31/19 08:59 Nucleated RBC % Not Reportable 05/31/19 08:59 Seg Neutrophils # 4.3 K/mm3 (1.8-7.7) 06/01/19 03:51 Seg Neutrophils # Man 5.0 K/mm3 (1.8-7.7) 05/31/19 08:59 Band Neutrophils # 0.0 K/mm3 05/31/19 08:59 Lymphocytes # (Manual) 1.1 K/mm3 (1.2-5.4) L 05/31/19 08:59 Abs React Lymphs (Man) 0.0 K/mm3 05/31/19 08:59 Monocytes # (Manual) 0.8 K/mm3 (0.0-0.8) 05/31/19 08:59 Eosinophils # (Manual) 0.6 K/mm3 (0.0-0.4) H 05/31/19 08:59 Basophils # (Manual) 0.0 K/mm3 (0.0-0.1) 05/31/19 08:59 Metamyelocytes # 0.0 K/mm3 05/31/19 08:59 Myelocytes # 0.0 K/mm3 05/31/19 08:59 Promyelocytes # 0.0 K/mm3 05/31/19 08:59 Blast Cells # 0.0 K/mm3 05/31/19 08:59 WBC Morphology Not Reportable 05/31/19 08:59 Hypersegmented Neuts Not Reportable 05/31/19 08:59 Hyposegmented Neuts Not Reportable 05/31/19 08:59 Hypogranular Neuts Not Reportable 05/31/19 08:59 Smudge Cells Not Reportable 05/31/19 08:59 Toxic Granulation Not Reportable 05/31/19 08:59 Toxic Vacuolation Not Reportable 05/31/19 08:59 Dohle Bodies Not Reportable 05/31/19 08:59 Pelger-Huet Anomaly Not Reportable 05/31/19 08:59 Mervin Rods Not Reportable 05/31/19 08:59 Platelet Estimate Consistent w auto 05/31/19 08:59 Clumped Platelets Not Reportable 05/31/19 08:59 Plt Clumps, EDTA Not Reportable 05/31/19 08:59 Large Platelets Not Reportable 05/31/19 08:59 Giant Platelets Not Reportable 05/31/19 08:59 Platelet Satelliting Not Reportable 05/31/19 08:59 Plt Morphology Comment Not Reportable 05/31/19 08:59 RBC Morphology Not Reportable 05/31/19 08:59 Dimorphic RBCs Not Reportable 05/31/19 08:59 Polychromasia Not Reportable 05/31/19 08:59 Hypochromasia 1+ 05/31/19 08:59 Poikilocytosis Few 05/31/19 08:59 Anisocytosis Few 05/31/19 08:59 Microcytosis Not Reportable 05/31/19 08:59 Macrocytosis Not Reportable 05/31/19 08:59 Spherocytes Not Reportable 05/31/19 08:59 Pappenheimer Bodies Not Reportable 05/31/19 08:59 Sickle Cells Not Reportable 05/31/19 08:59 Target Cells Not Reportable 05/31/19 08:59 Tear Drop Cells Not Reportable 05/31/19 08:59 Ovalocytes Few 05/31/19 08:59 Helmet Cells Not Reportable 05/31/19 08:59 Brink-[place] Bodies Not Reportable 05/31/19 08:59 Loving Rings Not Reportable 05/31/19 08:59 Ileana Cells Not Reportable 05/31/19 08:59 Bite Cells Not Reportable 05/31/19 08:59 Crenated Cell Not Reportable 05/31/19 08:59 Elliptocytes Rare 05/31/19 08:59 Acanthocytes (Spur) Not Reportable 05/31/19 08:59 Rouleaux Not Reportable 05/31/19 08:59 Hemoglobin C Crystals Not Reportable 05/31/19 08:59 Schistocytes Not Reportable 05/31/19 08:59 Malaria parasites Not Reportable 05/31/19 08:59 Gianni Bodies Not Reportable 05/31/19 08:59 Hem Pathologist Commnt No 05/31/19 08:59 PT 14.1 Sec. (12.2-14.9) 05/31/19 12:21 INR 1.10 (0.87-1.13) 05/31/19 12:21 APTT 41.1 Sec. (24.2-36.6) H 05/31/19 12:21 D-Dimer 4262.71 ng/mlDDU (0-234) H 05/31/19 08:59 Heparin Anti-Xa Level < 0.10 U.I./ml (0.3-0.7) L 06/01/19 05:43 POC ABG pH 7.360 (7.35-7.45) 06/04/19 16:24 POC ABG pCO2 57.3 (35-45) H 06/04/19 16:24 POC ABG pO2 65 (80-105) L 06/04/19 16:24 POC ABG HCO3 32.4 (22-26 mml/L) 06/04/19 16:24 POC ABG Total CO2 34 (23-27mmol/L) 06/04/19 16:24 POC ABG O2 Sat 91 06/04/19 16:24 POC ABG Base Excess 7 ((-2) - (+3)mmol/L) 06/04/19 16:24 FiO2 32 % 06/04/19 16:24 Sodium 147 mmol/L (137-145) H 06/05/19 06:23 Potassium 4.5 mmol/L (3.6-5.0) 06/05/19 06:23 Chloride 107.7 mmol/L (98-107) H 06/05/19 06:23 Carbon Dioxide 28 mmol/L (22-30) 06/05/19 06:23 Anion Gap 16 mmol/L 06/05/19 06:23 BUN 34 mg/dL (9-20) H 06/05/19 06:23 Creatinine 1.9 mg/dL (0.8-1.5) H 06/05/19 06:23 Estimated GFR 44 ml/min 06/05/19 06:23 BUN/Creatinine Ratio 18 % 06/05/19 06:23 Glucose 589 mg/dL (75-100) H* 06/05/19 07:18 POC Glucose 491 (70-105) H 06/05/19 11:18 Hemoglobin A1c 11.2 % (4-6) H 05/31/19 19:22 Lactic Acid 1.90 mmol/L (0.7-2.0) 06/03/19 09:59 Calcium 9.4 mg/dL (8.4-10.2) 06/05/19 06:23 Magnesium 1.70 mg/dL (1.7-2.3) 05/31/19 08:59 Total Bilirubin 0.20 mg/dL (0.1-1.2) 06/01/19 03:51 Direct Bilirubin < 0.2 mg/dL (0-0.2) 05/31/19 08:59 Indirect Bilirubin 0.0 mg/dL 05/31/19 08:59 AST 29 units/L (5-40) 06/01/19 03:51 ALT 22 units/L (7-56) 06/01/19 03:51 Alkaline Phosphatase 106 units/L (35-129) 06/01/19 03:51 Total Creatine Kinase 35 units/L (55-170) L 05/31/19 08:59 CK-MB (CK-2) < 1.0 ng/mL (0.0-4.0) 05/31/19 08:59 CK-MB (CK-2) Rel Index 2.8 (0-4) 05/31/19 08:59 Troponin T < 0.010 ng/mL (0.00-0.029) 05/31/19 08:59 NT-Pro-B Natriuret Pep 305.5 pg/mL (0-900) 05/31/19 08:59 Total Protein 7.8 g/dL (6.3-8.2) 06/01/19 03:51 Albumin 3.3 g/dL (3.9-5) L 06/01/19 03:51 Albumin/Globulin Ratio 0.7 % 06/01/19 03:51 Urine Color Yellow (Yellow) 05/31/19 Unknown Urine Turbidity Clear (Clear) 05/31/19 Unknown Urine pH 6.0 (5.0-7.0) 05/31/19 Unknown Ur Specific [place] 1.010 (1.003-1.030) 05/31/19 Unknown Urine Protein 30 mg/dl mg/dL (Negative) 05/31/19 Unknown Urine Glucose (UA) Negative mg/dL (Negative) 05/31/19 Unknown Urine Ketones Negative mg/dL (Negative) 05/31/19 Unknown Urine Blood Negative (Negative) 05/31/19 Unknown Urine Nitrite Negative (Negative) 05/31/19 Unknown Ur Reducing Substances Not Reportable 05/31/19 Unknown Urine Bilirubin Negative (Negative) 05/31/19 Unknown Urine Ictotest Not Reportable 05/31/19 Unknown Urine Urobilinogen 0.0 mg/dL (<2.0) 05/31/19 Unknown Ur Leukocyte Esterase Negative (Negative) 05/31/19 Unknown Urine WBC (Auto) < 1.0 /HPF (0.0-6.0) 05/31/19 Unknown Urine RBC (Auto) < 1.0 /HPF (0.0-6.0) 05/31/19 Unknown U Epithel Cells (Auto) 1.0 /HPF (0-13.0) 05/31/19 Unknown Urine Bacteria (Auto) 1+ /HPF (Negative) 05/31/19 Unknown Urine Mucus Few /HPF 05/31/19 Unknown Blood Type A POSITIVE 05/31/19 12:21 Antibody Screen Negative 05/31/19 12:21 Active Medications - Current Medications Current Medications: Generic Name Dose Route Start Last Admin Trade Name Freq PRN Reason Stop Dose Admin Albuterol 2.5 mg 06/01/19 16:19 Proventil IH Q4HRT PRN Shortness Of Breath Albuterol/Ipratropium 1 ampul 06/01/19 20:00 06/05/19 14:11 Duoneb *Not For Prn Use* IH 1 ampul TIDRT SHANEL Administration Arformoterol Tartrate 15 mcg 06/03/19 20:00 06/05/19 07:45 Brovana Nebu IH 15 mcg Q12HRT SHANEL Administration Budesonide 0.5 mg 06/03/19 20:00 06/05/19 07:45 Pulmicort IH 0.5 mg Q12HRT SHANEL Administration Famotidine 20 mg 06/03/19 18:00 06/05/19 09:41 Pepcid PO 20 mg QDAY SHANEL Administration Heparin Sodium (Porcine) 5,000 unit 05/31/19 22:00 06/05/19 09:43 Heparin SUB-Q 5,000 unit Q12HR SHANEL Administration Levofloxacin/Dextrose 750 mg in 150 mls @ 100 mls/hr 06/03/19 12:00 06/05/19 11:31 Levaquin 750mg/150ml IV 06/07/19 11:59 100 mls/hr Q48H SHANEL Administration Protocol Insulin Glargine 25 units 06/05/19 16:00 Lantus SUB-Q QAM SHANEL Insulin Human Isoph/Insulin Regular 25 unit 06/05/19 17:00 Humulin 70/30 SUB-Q BIDDIAB SHANEL Insulin Human Lispro 0 unit 05/31/19 23:30 06/05/19 15:50 Humalog SUB-Q 10 unit ACHS [facility] Administration Protocol Insulin Human Lispro 4 unit 06/05/19 16:30 Humalog SUB-Q AC [facility] Levothyroxine Sodium 88 mcg 06/06/19 06:00 Synthroid PO QDAY@0600 [facility] Metoclopramide HCl 10 mg 05/31/19 18:40 Reglan IV Q6H PRN Nausea And Vomiting Ondansetron HCl 4 mg 05/31/19 18:40 Zofran IV Q8H PRN Nausea And Vomiting Oxycodone/Acetaminophen 1 tab 05/31/19 18:40 06/03/19 12:55 Percocet 5/325 PO 1 tab Q6H PRN Administration Pain, Moderate (4-6) Prednisone 20 mg 06/05/19 10:00 06/05/19 09:42 Deltasone PO 20 mg QDAY SHANEL Administration Sodium Chloride 10 ml 05/31/19 22:00 06/05/19 09:42 Sodium Chloride Flush Syringe 10 Ml IV 10 ml BID SHANEL Administration Sodium Chloride 10 ml 05/31/19 18:40 Sodium Chloride Flush Syringe 10 Ml IV PRN PRN LINE FLUSH
[2019-06-05] MEDS ORDERED: INSULIN GLARGINE 100 UNITS/ML SUB-Q SCH (16:00)
[2019-06-05] MEDS ORDERED: INSULIN LISPRO 4 UNIT SQ SCH (16:30)
[2019-06-05] MEDS ORDERED: GLIMEPIRIDE 2 MG TAB PO ONE (18:34)
[2019-06-05 22:21] LABS: Calcium 9.3 mg/dL (8.4-10.2)
[2019-06-05] MEDS ORDERED: INSULIN REGULAR, HUMAN 100 UNITS/1 ML IV ONE (23:00)
[2019-06-05] MEDS ORDERED: SODIUM CHLORIDE 0.9% 1000 ML 1,000 ML IV SCH (23:00)
[2019-06-06] MEDS: INSULIN LISPRO 100 UNIT/ML SUB-Q SCH ×9 (02:44→22:50)
[2019-06-06 03:45] LABS: Hematocrit 29.9 % (35.5-45.6)
[2019-06-06] MEDS: LEVOTHYROXINE 88 MCG TAB PO SCH (06:15)
[2019-06-06] MEDS: IPRATROPIUM/ALBUTEROL SULFATE 3 ML AMPUL.NEB IH SCH ×3 (07:19→20:37)
[2019-06-06] MEDS: BUDESONIDE 0.5 MG/2 ML NEBU IH SCH ×2 (07:19→20:37)
[2019-06-06] MEDS: ARFORMOTEROL 15 MCG/2 ML NEBU IH SCH ×2 (07:20→20:37)
[2019-06-06] MEDS ORDERED: INSULIN NPH/REGULAR 70/30 INJ SUB-Q SCH ×2 (08:00→08:24)
[2019-06-06] MEDS ORDERED: LANTUS 25 UNIT SQ SCH (10:00)
[2019-06-06] MEDS: HEPARIN 5,000 UNIT/1 ML VIAL SUB-Q SCH ×2 (10:21→22:50)
[2019-06-06] MEDS: FAMOTIDINE 20 MG TAB PO SCH (10:21)
[2019-06-06] MEDS: predniSONE 20 MG TAB PO SCH (10:21)
[2019-06-06 14:18] LABS: Calcium 9.2 mg/dL (8.4-10.2)
--- NOTE | 2019-06-06 15:07 | Progress Note ---
Assessment and Plan Acute hypoxemic respiratory failure. Bilateral bibasilar left greater than right pneumonias. Right paratracheal consolidation or mass. History of obstructive sleep apnea. Acute chronic obstructive pulmonary disease exacerbation. Diabetes, poorly treated and poorly controlled. Hyperkalemia at presentation. Acute kidney injury that is new to this admission. - CT suzette negative - repeat CXR in am - glycemic control per SSI for target BG < 180 mg/dl - continue current care otherwise - to resume some chronic home med's including thyroid supplementation - VQ scan negative; no further VTE work-up - ABG reviewed and addressed - continue NIV scheduled qhs with prn daytime use - Procalcitonin level pending but lactate WNL - complete empiric AB's therapy - continue supplemental oxygen as needed to keep O2 sat's > 90% - continue bronchodilators (ABBE & LABA) with pulmonary hygiene per RT - continue systemic steroids with slow taper - continue inhaled corticosteroids - PT/OT as tolerated - mobility protocols for pressure ulcer prophylaxis - GI & VTE prophylaxis - Flu & Pneumovax addressed per protocol - continue other care per attending / other consultants ... re-evaluate in am & prn Subjective Date of service: 06/06/19 Principal diagnosis: Ac. hypoxemic resp failure; Bibasilar L>R PNA; AE-COPD Interval history: Patient is seen today for: Acute hypoxemic resp failure; Bibasilar L>R PNA; R. paratracheal consolidation or mass; AE-COPD; Diabetes type II; Hyperkalemia; JAGDEEP Seen and examined at bedside; 24-hour events reviewed; nursing and respiratory care staff consulted; no adverse overnight events reported to me; resting peacefully in bed; no chest pains or palpitations Objective Vital Signs - 12hr 06/06/19 06/06/19 06/06/19 05:14 07:23 07:39 Temperature 96.4 F L Pulse Rate 82 Pulse Rate [ 70 Posterior Bilateral Throughout] Respiratory 20 Rate Respiratory 18 Rate [Posterior Bilateral Throughout] Blood Pressure 115/55 O2 Sat by Pulse 96 97 Oximetry 06/06/19 06/06/19 06/06/19 09:07 10:00 12:29 Temperature 97.0 F L Pulse Rate 72 87 Pulse Rate [ Posterior Bilateral Throughout] Respiratory 22 22 Rate Respiratory Rate [Posterior Bilateral Throughout] Blood Pressure 124/70 O2 Sat by Pulse 96 99 Oximetry 06/06/19 13:48 Temperature Pulse Rate Pulse Rate [ 88 Posterior Bilateral Throughout] Respiratory Rate Respiratory 18 Rate [Posterior Bilateral Throughout] Blood Pressure O2 Sat by Pulse Oximetry Constitutional: no acute distress, other (elderly looking obese AAM, normoce phalic with mild clinical hypoventilation at rest) Eyes: non-icteric ENT: oropharynx moist, other (Mallampati 3) Neck: supple, no lymphadenopathy, no JVD, other (large neck circumference) Effort: mildly labored Ascultation: Bilateral: diminished breath sounds, rales (bases) Percussion: Bilateral: not dull Cardiovascular: regular rate and rhythm Gastrointestinal: normoactive bowel sounds, soft, non-tender, non-distended, other (protuberant) Integumentary: normal Extremities: no cyanosis, pulses normal, no ischemia or petechiae, edema Neurologic: normal mental status, non-focal exam, pupils equal and round, CN II- XII normal, motor strength normal and Psychiatric: other (Affect flat; slow responses; + cognitive defect) CBC and BMP: 06/06/19 03:24 06/06/19 13:22 ABG, PT/INR, D-dimer: ABG POC ABG pH 7.360 (7.35-7.45) 06/04/19 16:24 POC ABG pCO2 57.3 (35-45) H 06/04/19 16:24 POC ABG pO2 65 (80-105) L 06/04/19 16:24 POC ABG HCO3 32.4 (22-26 mml/L) 06/04/19 16:24 POC ABG Total CO2 34 (23-27mmol/L) 06/04/19 16:24 POC ABG O2 Sat 91 06/04/19 16:24 PT/INR, D-dimer PT 14.1 Sec. (12.2-14.9) 05/31/19 12:21 INR 1.10 (0.87-1.13) 05/31/19 12:21 D-Dimer 4262.71 ng/mlDDU (0-234) H 05/31/19 08:59 Abnormal lab findings: Abnormal Labs 05/31/19 05/31/19 05/31/19 08:59 08:59 08:59 RBC 3.46 L Hgb 8.8 L Hct 28.8 L MCV 83 L MCH 26 L MCHC 31 L RDW 18.3 H [place] % (Auto) Eos % (Auto) [place] # Eos # Monocytes % (Manual) 11.0 H Eosinophils % (Manual) 8.0 H Lymphocytes # (Manual) 1.1 L Eosinophils # (Manual) 0.6 H APTT D-Dimer 4262.71 H Heparin Anti-Xa Level POC ABG pH POC ABG pCO2 POC ABG pO2 Sodium Potassium 5.4 H Chloride Carbon Dioxide 19 L BUN Creatinine Glucose 304 H POC Glucose Hemoglobin A1c Total Creatine Kinase 35 L Albumin 3.1 L 05/31/19 05/31/19 05/31/19 12:21 12:21 17:31 RBC Hgb 9.1 L Hct 29.6 L MCV MCH MCHC RDW [place] % (Auto) Eos % (Auto) [place] # Eos # Monocytes % (Manual) Eosinophils % (Manual) Lymphocytes # (Manual) Eosinophils # (Manual) APTT 41.1 H D-Dimer Heparin Anti-Xa Level POC ABG pH POC ABG pCO2 POC ABG pO2 Sodium Potassium Chloride Carbon Dioxide BUN Creatinine Glucose POC Glucose 329 H Hemoglobin A1c Total Creatine Kinase Albumin 05/31/19 05/31/19 05/31/19 19:22 19:22 21:43 RBC Hgb Hct MCV MCH MCHC RDW [place] % (Auto) Eos % (Auto) [place] # Eos # Monocytes % (Manual) Eosinophils % (Manual) Lymphocytes # (Manual) Eosinophils # (Manual) APTT D-Dimer Heparin Anti-Xa Level < 0.10 L POC ABG pH POC ABG pCO2 POC ABG pO2 Sodium Potassium Chloride Carbon Dioxide BUN Creatinine Glucose POC Glucose 365 H Hemoglobin A1c 11.2 H Total Creatine Kinase Albumin 05/31/19 06/01/19 06/01/19 23:14 03:51 03:51 RBC 3.57 L Hgb 9.0 L Hct 29.0 L MCV 81 L MCH 25 L MCHC 31 L RDW 17.9 H [place] % (Auto) 13.9 H Eos % (Auto) 6.7 H [place] # 1.0 H Eos # 0.5 H Monocytes % (Manual) Eosinophils % (Manual) Lymphocytes # (Manual) Eosinophils # (Manual) APTT D-Dimer Heparin Anti-Xa Level 0.10 L POC ABG pH POC ABG pCO2 POC ABG pO2 Sodium Potassium Chloride Carbon Dioxide BUN Creatinine Glucose 374 H POC Glucose Hemoglobin A1c Total Creatine Kinase Albumin 3.3 L 06/01/19 06/01/19 06/01/19 05:43 07:56 11:56 RBC Hgb Hct MCV MCH MCHC RDW [place] % (Auto) Eos % (Auto) [place] # Eos # Monocytes % (Manual) Eosinophils % (Manual) Lymphocytes # (Manual) Eosinophils # (Manual) APTT D-Dimer Heparin Anti-Xa Level < 0.10 L POC ABG pH POC ABG pCO2 POC ABG pO2 Sodium Potassium Chloride Carbon Dioxide BUN Creatinine Glucose POC Glucose 390 H 442 H Hemoglobin A1c Total Creatine Kinase Albumin 06/01/19 06/01/19 06/02/19 15:55 20:35 03:10 RBC Hgb 9.5 L Hct 31.5 L MCV 83 L MCH 25 L MCHC 30 L RDW 18.4 H [place] % (Auto) Eos % (Auto) [place] # Eos # Monocytes % (Manual) Eosinophils % (Manual) Lymphocytes # (Manual) Eosinophils # (Manual) APTT D-Dimer Heparin Anti-Xa Level POC ABG pH POC ABG pCO2 POC ABG pO2 Sodium Potassium Chloride Carbon Dioxide BUN Creatinine Glucose POC Glucose 290 H 254 H Hemoglobin A1c Total Creatine Kinase Albumin 06/02/19 06/02/19 06/02/19 03:10 07:45 11:15 RBC Hgb Hct MCV MCH MCHC RDW [place] % (Auto) Eos % (Auto) [place] # Eos # Monocytes % (Manual) Eosinophils % (Manual) Lymphocytes # (Manual) Eosinophils # (Manual) APTT D-Dimer Heparin Anti-Xa Level POC ABG pH POC ABG pCO2 POC ABG pO2 Sodium 148 H Potassium Chloride Carbon Dioxide BUN Creatinine 1.8 H D Glucose 159 H POC Glucose 222 H 383 H Hemoglobin A1c Total Creatine Kinase Albumin 06/02/19 06/02/19 06/03/19 15:41 22:06 00:41 RBC Hgb Hct MCV MCH MCHC RDW [place] % (Auto) Eos % (Auto) [place] # Eos # Monocytes % (Manual) Eosinophils % (Manual) Lymphocytes # (Manual) Eosinophils # (Manual) APTT D-Dimer Heparin Anti-Xa Level POC ABG pH POC ABG pCO2 POC ABG pO2 Sodium Potassium Chloride Carbon Dioxide BUN Creatinine Glucose POC Glucose 262 H 146 H 216 H Hemoglobin A1c Total Creatine Kinase Albumin 06/03/19 06/03/19 06/03/19 03:33 03:33 07:45 RBC Hgb 9.4 L Hct 31.3 L MCV MCH 25 L MCHC 30 L RDW 18.4 H [place] % (Auto) Eos % (Auto) [place] # Eos # Monocytes % (Manual) Eosinophils % (Manual) Lymphocytes # (Manual) Eosinophils # (Manual) APTT D-Dimer Heparin Anti-Xa Level POC ABG pH POC ABG pCO2 POC ABG pO2 Sodium 148 H Potassium Chloride Carbon Dioxide BUN Creatinine 2.1 H Glucose 225 H POC Glucose 217 H Hemoglobin A1c Total Creatine Kinase Albumin 06/03/19 06/03/19 06/03/19 11:51 16:50 18:24 RBC Hgb Hct MCV MCH MCHC RDW [place] % (Auto) Eos % (Auto) [place] # Eos # Monocytes % (Manual) Eosinophils % (Manual) Lymphocytes # (Manual) Eosinophils # (Manual) APTT D-Dimer Heparin Anti-Xa Level POC ABG pH 7.266 L POC ABG pCO2 POC ABG pO2 74 L Sodium Potassium Chloride Carbon Dioxide BUN Creatinine Glucose POC Glucose 233 H 210 H Hemoglobin A1c Total Creatine Kinase Albumin 06/03/19 06/04/19 06/04/19 20:59 05:24 05:24 RBC Hgb 9.3 L Hct 30.5 L MCV 83 L MCH 25 L MCHC 31 L RDW 18.1 H [place] % (Auto) Eos % (Auto) [place] # Eos # Monocytes % (Manual) Eosinophils % (Manual) Lymphocytes # (Manual) Eosinophils # (Manual) APTT D-Dimer Heparin Anti-Xa Level POC ABG pH POC ABG pCO2 POC ABG pO2 Sodium 147 H Potassium 5.1 H Chloride Carbon Dioxide BUN 23 H Creatinine 2.1 H Glucose 270 H POC Glucose 191 H Hemoglobin A1c Total Creatine Kinase Albumin 06/04/19 06/04/19 06/04/19 09:41 13:36 16:24 RBC Hgb Hct MCV MCH MCHC RDW [place] % (Auto) Eos % (Auto) [place] # Eos # Monocytes % (Manual) Eosinophils % (Manual) Lymphocytes # (Manual) Eosinophils # (Manual) APTT D-Dimer Heparin Anti-Xa Level POC ABG pH POC ABG pCO2 57.3 H POC ABG pO2 65 L Sodium Potassium Chloride Carbon Dioxide BUN Creatinine Glucose POC Glucose 301 H 354 H Hemoglobin A1c Total Creatine Kinase Albumin 06/04/19 06/04/19 06/05/19 16:52 21:00 01:03 RBC Hgb Hct MCV MCH MCHC RDW [place] % (Auto) Eos % (Auto) [place] # Eos # Monocytes % (Manual) Eosinophils % (Manual) Lymphocytes # (Manual) Eosinophils # (Manual) APTT D-Dimer Heparin Anti-Xa Level POC ABG pH POC ABG pCO2 POC ABG pO2 Sodium Potassium Chloride Carbon Dioxide BUN Creatinine Glucose POC Glucose 381 H 496 H > 500 H Hemoglobin A1c Total Creatine Kinase Albumin 06/05/19 06/05/19 06/05/19 01:14 03:41 06:23 RBC Hgb Hct MCV MCH MCHC RDW [place] % (Auto) Eos % (Auto) [place] # Eos # Monocytes % (Manual) Eosinophils % (Manual) Lymphocytes # (Manual) Eosinophils # (Manual) APTT D-Dimer Heparin Anti-Xa Level POC ABG pH POC ABG pCO2 POC ABG pO2 Sodium 147 H Potassium Chloride 107.7 H Carbon Dioxide BUN 34 H Creatinine 1.9 H Glucose 621 H* 605 H* POC Glucose 485 H Hemoglobin A1c Total Creatine Kinase Albumin 06/05/19 06/05/19 06/05/19 07:04 07:14 07:18 RBC Hgb Hct MCV MCH MCHC RDW [place] % (Auto) Eos % (Auto) [place] # Eos # Monocytes % (Manual) Eosinophils % (Manual) Lymphocytes # (Manual) Eosinophils # (Manual) APTT D-Dimer Heparin Anti-Xa Level POC ABG pH POC ABG pCO2 POC ABG pO2 Sodium Potassium Chloride Carbon Dioxide BUN Creatinine Glucose 589 H* POC Glucose > 500 H > 500 H Hemoglobin A1c Total Creatine Kinase Albumin 06/05/19 06/05/19 06/05/19 08:49 09:17 11:18 RBC Hgb Hct MCV MCH MCHC RDW [place] % (Auto) Eos % (Auto) [place] # Eos # Monocytes % (Manual) Eosinophils % (Manual) Lymphocytes # (Manual) Eosinophils # (Manual) APTT D-Dimer Heparin Anti-Xa Level POC ABG pH POC ABG pCO2 POC ABG pO2 Sodium Potassium Chloride Carbon Dioxide BUN Creatinine Glucose POC Glucose > 500 H 489 H 491 H Hemoglobin A1c Total Creatine Kinase Albumin 06/05/19 06/05/19 06/05/19 15:52 16:23 18:36 RBC Hgb Hct MCV MCH MCHC RDW [place] % (Auto) Eos % (Auto) [place] # Eos # Monocytes % (Manual) Eosinophils % (Manual) Lymphocytes # (Manual) Eosinophils # (Manual) APTT D-Dimer Heparin Anti-Xa Level POC ABG pH POC ABG pCO2 POC ABG pO2 Sodium Potassium Chloride Carbon Dioxide BUN Creatinine Glucose 608 H* POC Glucose > 500 H > 500 H Hemoglobin A1c Total Creatine Kinase Albumin 06/05/19 06/05/19 06/06/19 20:41 21:50 00:19 RBC Hgb Hct MCV MCH MCHC RDW [place] % (Auto) Eos % (Auto) [place] # Eos # Monocytes % (Manual) Eosinophils % (Manual) Lymphocytes # (Manual) Eosinophils # (Manual) APTT D-Dimer Heparin Anti-Xa Level POC ABG pH POC ABG pCO2 POC ABG pO2 Sodium Potassium Chloride Carbon Dioxide BUN 39 H Creatinine 1.8 H Glucose 655 H* POC Glucose > 500 H 481 H Hemoglobin A1c Total Creatine Kinase Albumin 06/06/19 06/06/19 06/06/19 02:37 03:24 03:24 RBC Hgb 9.0 L Hct 29.9 L MCV MCH MCHC RDW [place] % (Auto) Eos % (Auto) [place] # Eos # Monocytes % (Manual) Eosinophils % (Manual) Lymphocytes # (Manual) Eosinophils # (Manual) APTT D-Dimer Heparin Anti-Xa Level POC ABG pH POC ABG pCO2 POC ABG pO2 Sodium Potassium Chloride Carbon Dioxide BUN Creatinine Glucose 350 H POC Glucose > 500 H Hemoglobin A1c Total Creatine Kinase Albumin 06/06/19 06/06/19 06/06/19 06:24 10:34 13:22 RBC Hgb Hct MCV MCH MCHC RDW [place] % (Auto) Eos % (Auto) [place] # Eos # Monocytes % (Manual) Eosinophils % (Manual) Lymphocytes # (Manual) Eosinophils # (Manual) APTT D-Dimer Heparin Anti-Xa Level POC ABG pH POC ABG pCO2 POC ABG pO2 Sodium 153 H D Potassium Chloride 109.8 H Carbon Dioxide BUN 37 H Creatinine Glucose 354 H POC Glucose 272 H 359 H Hemoglobin A1c Total Creatine Kinase Albumin Allied health notes reviewed: nursing
--- NOTE | 2019-06-06 15:12 | Discharge Summary ---
Providers - Providers Date of Admission: 05/31/19 18:40 Attending physician: TRINY SHANNON MD 05/31/19 12:20 Midline [Consult to PICC Line RN] [CONS] Stat Reason For Exam: DIFFICULTLY W/ IV Type Line:: Midline 05/31/19 18:40 Consult to Physician [CONS] Routine Comment: Consulting Provider: KELLY TREJO Physician Instructions: Reason For Exam: CHF 06/01/19 11:12 Physical Therapy Evaluation and Treat [CONS] Routine Comment: Reason For Exam: ataxia 06/02/19 14:48 Consult to Physician [CONS] Routine Comment: Consulting Provider: ARMIDA HANNON Physician Instructions: Reason For Exam: hypoxia [facility] Reason for admission: shortness of breath Condition: Stable Hospital course: 58-year-old pleasant gentleman comes in for bilateral lower extremity swelling for one week and increasing sob for one week. Cough non productive. Patient has orthopnea. Also class IV NYHA symptoms.No fever or chills. Initial room air sats 85 percent . * V/Q negative * Tolerated BIPAP last night * Metabolic Encephalopathy resolved. Head ct negative * Kayxalate x 1 * Bradycardia- ekgs, PROLONG [place] interval- Cardiology following. Improved * Unfortunately was not notified of requested updated home meds. Reviewed and adjustment made to insulin. Also discussed with Nursing staff * IF HR, Blood glucose remains stable will plan discharge in am * Check TSH and free t4. Restart home dose Synthroid. * Patient had intermittent change in mental status but returned to baseline. * He recommended to use CPAP at hs, follow with Pulmmonary and cardiology. This has been reported to the home critical care physician assistant. * Discussed with Curator Of Manuscripts (1) Acute respiratory failure with Hypoxia Current Visit: Yes Status: Acute Qualifiers: Respiratory failure complication: hypoxia Qualified Code(s): J96.01 - Acute respiratory failure with hypoxia Plan to address problem: Cont O2 and Bipap as necessary. IV abx IV Solumedrol - taper and Duonebs Pulmonary consult- discussed, concerned for aspiration pneumonia. Echo reviewed. no evidence of endocarditis, No comment on Pulmonary pressures. (2) Bilateral pneumonia Current Visit: Yes Status: Acute Qualifiers: Lung location: unspecified part of lung Plan to address problem: IV abx and Duonebs for now Added LEVAQUIN (3) Exacerbation of CHF (congestive heart failure) Current Visit: Yes Status: Acute Qualifiers: Heart failure type: combined systolic and diastolic Qualified Code(s): I50.43 - Acute on chronic combined systolic (congestive) and diastolic (congestive) heart failure Plan to address problem: On IV Lasix Discussed with cardiology, NO clear evidence of acute heart failure exacerbation (4) T2DM (type 2 diabetes mellitus) Current Visit: Yes Status: Chronic Qualifiers: Diabetes mellitus prison insulin use: unspecified prison insulin use status Plan to address problem: Cont coverage Uncontrolled, will hold oral meds and start on NPH 70/30 increase insulin for better control (5) HTN (hypertension) Current Visit: Yes Status: Chronic Qualifiers: Hypertension type: essential hypertension Qualified Code(s): I10 - Essential (primary) hypertension Plan to address problem: Cont antihypertensives (6) JOE (obstructive sleep apnea) Current Visit: Yes Status: Chronic Plan to address problem: Cont CPAP Disposition: [id number] HOME UNDER HOME [facility] Time spent for discharge: 35 mins Core Measure Documentation - Palliative Care Palliative Care/ Comfort Measures: Not Applicable - Core Measures Any of the following diagnoses?: none Exam - Physical Exam Narrative exam: General appearance: Present: No distress, well-nourished - EENT Eyes: Present: PERRL ENT: hearing intact, clear oral mucosa - Neck Neck: Present: supple, normal ROM - Respiratory Respiratory effort: normal Respiratory: bilateral: diminished, - Cardiovascular Rhythm:TACHYCARDIA Heart Sounds: Present: S1 & S2. Absent: rub, click - Extremities Extremities: no ischemia, pulses intact, pulses symmetrical, Carl Extremity abnormal: edema (trace) Peripheral Pulses: within normal limits - Abdominal General gastrointestinal: Present: soft, non-tender, non-distended, normal bowel sounds Male genitourinary: Present: normal - Integumentary Integumentary: Present: chronic changes in the lower ext, edema trace bilateral - Musculoskeletal Musculoskeletal: gait normal, strength equal bilaterally - Psychiatric Psychiatric: appropriate mood/affect, some congnitive decline exsist - Neurologic Neurologic: CNII-XII intact, moves all extremities - Constitutional Vitals: Temp Pulse Resp BP Pulse Ox 97.0 F L 88 18 124/70 99 06/06/19 12:29 06/06/19 13:48 06/06/19 13:48 06/06/19 12:29 06/06/19 12:29 Plan Activity: advance as tolerated, fall precautions Diet: low fat Special Instructions: restrict fluid intake to (1200cc/day), record daily weights, home oxygen via (nasal cannula @ 3 liters per minute) Follow up with: AUGUST ARAIZA MD [Staff Physician] - 7 Days [facility] MD HUMERA [Primary Care Provider] - 3-5 Days ALONA RIVAS MD [Staff Physician] - 7 Days Prescriptions: Insulin NPH/Regular [NovoLIN 70/30] 50 unit SUB-Q BIDDIAB #100 units Famotidine [Pepcid] 20 mg PO QDAY #30 tablet Ipratropium/Albuterol Sulfate [DUONEB *Not for PRN Use*] 1 ampul IH TIDRT #90 ampul.neb
[2019-06-06] MEDS: INSULIN NPH/REGULAR 70/30 INJ SUB-Q SCH ×2 (15:22→17:11)
[2019-06-06] MEDS ORDERED: INSULIN REGULAR, HUMAN 100 UNITS/1 ML SUB-Q STA (16:19)
[2019-06-07] MEDS: INSULIN LISPRO 100 UNIT/ML SUB-Q SCH ×2 (02:58→06:24)
[2019-06-07 03:54] VITALS: BP 126/69
[2019-06-07] MEDS: LEVOTHYROXINE 88 MCG TAB PO SCH (06:19)
--- NOTE | 2019-06-07 07:41 | Discharge Summary ---
Providers - Providers Date of Admission: 05/31/19 18:40 Attending physician: TRINY SHANNON MD 05/31/19 12:20 Midline [Consult to PICC Line RN] [CONS] Stat Reason For Exam: DIFFICULTLY W/ IV Type Line:: Midline 05/31/19 18:40 Consult to Physician [CONS] Routine Comment: Consulting Provider: KELLY TREJO Physician Instructions: Reason For Exam: CHF 06/01/19 11:12 Physical Therapy Evaluation and Treat [CONS] Routine Comment: Reason For Exam: ataxia 06/02/19 14:48 Consult to Physician [CONS] Routine Comment: Consulting Provider: ARMIDA HANNON Physician Instructions: Reason For Exam: hypoxia [facility] Reason for admission: respiratory failure Condition: Stable Hospital course: 58-year-old pleasant gentleman comes in for bilateral lower extremity swelling for one week and increasing sob for one week. Cough non productive. Patient has orthopnea. Also class IV NYHA symptoms.No fever or chills. Initial room air sats 85 percent . * V/Q negative * Tolerated BIPAP last night * Metabolic Encephalopathy resolved. Head ct negative * Kayxalate x 1 * Bradycardia- ekgs, PROLONG [place] interval- Cardiology following. Improved * Unfortunately was not notified of requested updated home meds. Reviewed and adjustment made to insulin. Also discussed with Nursing staff * IF HR, Blood glucose remains stable will plan discharge in am * Check TSH and free t4. Restart home dose Synthroid. * Patient had intermittent change in mental status but returned to baseline. * He recommended to use CPAP at hs, follow with Pulmmonary and cardiology. This has been reported to the home direct care counselor. * Discussed with Structural Architect * Family did not feel safe taking home yesterda * Blood glucose now better controlled (1) Acute respiratory failure with Hypoxia Current Visit: Yes Status: Acute Qualifiers: Respiratory failure complication: hypoxia Qualified Code(s): J96.01 - Acute respiratory failure with hypoxia Plan to address problem: Cont O2 and Bipap as necessary. treated with abx and steroids, taper and Duonebs Pulmonary consult- discussed, concerned for aspiration pneumonia. Echo reviewed. no evidence of endocarditis, No comment on Pulmonary pressures. (2) Bilateral pneumonia Current Visit: Yes Status: Acute Qualifiers: Lung location: unspecified part of lung Plan to address problem: IV abx and later added LEVAQUIN (3) Exacerbation of CHF (congestive heart failure) Current Visit: Yes Status: Acute Qualifiers: Heart failure type: combined systolic and diastolic Qualified Code(s): I50.43 - Acute on chronic combined systolic (congestive) and diastolic (congestive) heart failure Plan to address problem: treated with IV Lasix Discussed with cardiology, NO clear evidence of acute heart failure exacerbation (4) T2DM (type 2 diabetes mellitus) Current Visit: Yes Status: Chronic Qualifiers: 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 insulin use: unspecified prison insulin use status Plan to address problem: Cont coverage Uncontrolled, will hold oral meds and start on NPH 70/30 increase insulin for better control (5) HTN (hypertension) Current Visit: Yes Status: Chronic Qualifiers: Hypertension type: essential hypertension Qualified Code(s): I10 - Essential (primary) hypertension Plan to address problem: Cont antihypertensives (6) JOE (obstructive sleep apnea) Current Visit: Yes Status: Chronic Plan to address problem: Cont CPAP Disposition: [id number] HOME UNDER HOME [facility] Time spent for discharge: 35 mins Core Measure Documentation - Palliative Care Palliative Care/ Comfort Measures: Not Applicable - Core Measures Any of the following diagnoses?: none Exam - Physical Exam Narrative exam: General appearance: Present: No distress, well-nourished - EENT Eyes: Present: PERRL ENT: hearing intact, clear oral mucosa - Neck Neck: Present: supple, normal ROM - Respiratory Respiratory effort: normal Respiratory: bilateral: diminished, - Cardiovascular Rhythm:TACHYCARDIA Heart Sounds: Present: S1 & S2. Absent: rub, click - Extremities Extremities: no ischemia, pulses intact, pulses symmetrical, Carl Extremity abnormal: edema (trace) Peripheral Pulses: within normal limits - Abdominal General gastrointestinal: Present: soft, non-tender, non-distended, normal bowel sounds Male genitourinary: Present: normal - Integumentary Integumentary: Present: chronic changes in the lower ext, edema trace bilateral - Musculoskeletal Musculoskeletal: gait normal, strength equal bilaterally - Psychiatric Psychiatric: appropriate mood/affect, some cognitive decline exist - Neurologic Neurologic: CNII-XII intact, moves all extremities - Constitutional Vitals: Temp Pulse Resp BP Pulse Ox 98.2 F 87 20 126/69 96 06/07/19 03:54 06/07/19 03:54 06/07/19 03:54 06/07/19 03:54 06/07/19 03:54 Plan Follow up with: AUGUST ARAIZA MD [Staff Physician] - 7 Days ALONA RIVAS MD [Staff Physician] - 7 Days [facility] HUMERA [Primary Care Provider] - 3-5 Days Prescriptions: Insulin NPH/Regular [NovoLIN 70/30] 50 unit SUB-Q BIDDIAB #100 units Famotidine [Pepcid] 20 mg PO QDAY #30 tablet Ipratropium/Albuterol Sulfate [DUONEB *Not for PRN Use*] 1 ampul IH TIDRT #90 ampul.neb
== END 2019-06-07 08:45 | disposition home health service (06) | DRG 291 ==
LOC: ED 07:40 → 4A 18:40
PROVIDERS: ADMIT Internal Medicine; ATTEND Internal Medicine
PROC: 4A033R1 Measurement of Arterial Saturation, Peripheral, Percutaneous Approach (ICD-10-PCS; principal; 2019-06-03)
PROC: 5A09357 Assistance with Respiratory Ventilation, Less than 24 Consecutive Hours, Continuous Positive Airway Pressure (ICD-10-PCS; 2019-06-03)
PROC: 5A09357 Assistance with Respiratory Ventilation, Less than 24 Consecutive Hours, Continuous Positive Airway Pressure (ICD-10-PCS; 2019-06-04)
PROC: 5A09357 Assistance with Respiratory Ventilation, Less than 24 Consecutive Hours, Continuous Positive Airway Pressure (ICD-10-PCS; 2019-06-05)
DX: I11.0 Hypertensive heart disease with heart failure (principal); G93.41 Metabolic encephalopathy; J96.01 Acute respiratory failure with hypoxia; J18.9 Pneumonia, unspecified organism; N17.0 Acute kidney failure with tubular necrosis; J44.1 Chronic obstructive pulmonary disease with (acute) exacerbation; J44.0 Chronic obstructive pulmonary disease with (acute) lower respiratory infection; I50.43 Acute on chronic combined systolic (congestive) and diastolic (congestive) heart failure; R60.0 Localized edema; R00.1 Bradycardia, unspecified; E11.9 Type 2 diabetes mellitus without complications; G47.33 Obstructive sleep apnea (adult) (pediatric); D64.9 Anemia, unspecified; E87.5 Hyperkalemia; Z79.4 Long term (current) use of insulin; Z79.899 Other long term (current) drug therapy; Z79.82 Long term (current) use of aspirin; Z90.49 Acquired absence of other specified parts of digestive tract; Z82.49 Family history of ischemic heart disease and other diseases of the circulatory system
CPT/HCPCS: 36415; 36600; 70450; 71045; 71275; 78580; 80048; 80053; 80076; 81001; 82140; 82550; 82553; 82803; 82947; 82962; 83036; 83735; 83880; 84145; 84439; 84443; 84484; 85007; 85014; 85018; 85025; 85027; 85049; 85379; 85520; 85610; 85730; 86850; 86900; 86901; 87040; 87116; 93005; 93010; 93306; 93970; 94640; 94660; 94760; 96374; G0378; A9540; J0456; J0696; J1644; J1815; J1940; J1956; J2920; J3486; J7030; J7040; J7050; J7512; Q9967

== ENCOUNTER 2019-12-18 12:01 | Inpatient (IN) | payer OTHER ==
[2019-12-18] MEDS ORDERED: ETOMIDATE 20 MG/10 ML INJ IV ONE ×2 (12:23→12:37)
[2019-12-18] MEDS ORDERED: ROCURONIUM 50 MG/5 ML INJ IV ONE ×2 (12:24→12:37)
[2019-12-18] MEDS ORDERED: LORazepam 2 MG/ML VIAL IV PRN (12:35)
[2019-12-18] MEDS ORDERED: fentaNYL 100 MCG/2 ML INJ IV PRN (12:35)
[2019-12-18] MEDS ORDERED: LIP THERAPY VASELINE TP PRN (12:35)
[2019-12-18] MEDS ORDERED: SODIUM CHLORIDE 0.9% 500 ML IVPB IV PRN (12:35)
[2019-12-18] MEDS ORDERED: MINERAL OIL/PETROLATUM, WHITE OPHTH OINT 3.5 GM OU PRN (12:35)
--- NOTE | 2019-12-18 12:38 | Emergency Department Report ---
ED General Adult HPI - General Chief complaint: Weakness Stated complaint: ALTERED MENTAL STATUS PUI?: Yes Time Seen by Provider: 12/18/19 12:05 Source: EMS (Verbal report received from emergency medical services. EMS do cumentation not available at time of chart dictation ), RN notes reviewed, old records reviewed Mode of arrival: Stretcher Limitations: Altered Mental Status, Physical Limitation - History of Present Illness Initial comments: Please note that for the entire history and physical examination, I had on complete personal protective equipment. In addition, the patient's history and physical were discussed with [place] coordinating physician, after he was emergently stabilized during his primary survey. Dr. Kait Nunez, [place] coordinating physician has authorized admission to this hospital. This patient is a 59-year-old gentleman who is morbidly obese. He was admitted to this hospital last year for acute respiratory failure with hypoxia, bilateral pneumonia, and exacerbation of congestive heart failure. He was found to have an acute metabolic encephalopathy and bradycardia. Today, the patient is brought to the hospital by emergency medical services with a complaint of weakness and trouble breathing. EMS verbally states patient had normal Accu-Chek in the field. They do not know the exact last known well time of the patient. The patient is not currently accompanied by friends or family at this time for additional information or collateral information. EMS states the patient was leaning over a vehicle outside his domicile, and appeared to be weak and altered. He was reportedly hypoxic in the field, to 70%. EMS started 3 L of oxygen in the field. Upon arrival to the emergency room, patient in moderate to severe respiratory distress, using abdominal muscles to breathe. He is saturating at 83 to 85% on 4 L nasal cannula. He is also found to have a low-grade fever in the emergency room. After putting on complete and appropriate personal protective equipment, the patient was emergently evaluated by myself. The patient did not answer any of my questions. He is noted to be drooling. The patient cannot describe exacerbating, relieving factors, or qualitative nature of his symptoms. Given hypoxia, altered mental status, accessory muscle use for breathing, the patient is emergently intubated by myself using video laryngoscopy, and appropriate personal protective equipment and precautions. He is not currently accompanied by friends or family at this time for additional information or collateral information. He is currently mechanically ventilated, and will be ventilated on an appropriate lung protective strategy. FABRICE labs have been ordered, altered mental status labs have been ordered, CT scan of the brain and chest have been ordered. I have also requested emergency callback from our critical care physician on-call, as well as infectious disease on-call. -: unknown Quality: other Consistency: other Improves with: other Worsens with: other Associated Symptoms: other - Related Data Home Medications Medication Instructions Recorded Confirmed Last Taken Aspirin [Aspirin BABY CHEW TAB] 81 mg PO DAILY 06/03/19 06/03/19 3 Days Ago ~05/31/19 Desmopressin [Ddavp] 0.2 mg PO BID 06/03/19 06/03/19 3 Days Ago ~05/31/19 Digoxin [Lanoxin] 0.125 mg PO DAILY 06/03/19 06/03/19 3 Days Ago ~05/31/19 Folic Acid 100 mg PO DAILY 06/03/19 06/03/19 3 Days Ago ~05/31/19 Furosemide [Lasix TAB] 40 mg PO QDAY 06/03/19 06/03/19 3 Days Ago ~05/31/19 Insulin Lispro [Humalog 100 4 units SQ AC 06/03/19 06/03/19 3 Days Ago UNITS/ML Kwikpen] ~05/31/19 Levothyroxine [Synthroid] 88 mcg PO QAM 06/03/19 06/03/19 3 Days Ago ~05/31/19 Metformin HCl [metFORMIN] 1,000 mg PO BID 06/03/19 06/03/19 3 Days Ago ~05/31/19 Potassium Chloride [K-Dur] 20 meq PO QDAY 06/03/19 06/03/19 3 Days Ago ~05/31/19 carvediloL [Coreg] 6.25 mg PO BID 06/03/19 06/03/19 3 Days Ago ~05/31/19 Previous Rx's Medication Instructions Recorded Last Taken Type Ipratropium/Albuterol Sulfate 1 ampul IH TIDRT #90 ampul.neb 06/02/19 Unknown Rx [DUONEB *Not for PRN Use*] Famotidine [Pepcid] 20 mg PO QDAY #30 tablet 06/06/19 Unknown Rx Insulin NPH/Regular [NovoLIN 70/30] 50 unit SUB-Q BIDDIAB #100 units 06/06/19 Unknown Rx Allergies Allergy/AdvReac Type Severity Reaction Status Date / Time Unable to Assess Allergy Unverified 05/31/19 07:56 ED Review of Systems ROS: Stated complaint: ALTERED MENTAL STATUS Other details as noted in HPI Comment: Unobtainable due to pts medical conditions ED Past Medical Hx - Past Medical History Hx Hypertension: Yes Hx Congestive Heart Failure: Yes Hx Diabetes: Yes Hx Asthma: No Hx COPD: No Additional medical history: JOE - Surgical History Hx Cholecystectomy: Yes - Social History Smoking Status: Never Smoker - Medications Home Medications: Home Medications Medication Instructions Recorded Confirmed Last Taken Type Ipratropium/Albuterol Sulfate 1 ampul IH TIDRT #90 ampul.neb 06/02/19 Unknown Rx [DUONEB *Not for PRN Use*] Aspirin [Aspirin BABY CHEW TAB] 81 mg PO DAILY 06/03/19 06/03/19 3 Days Ago History ~05/31/19 Desmopressin [Ddavp] 0.2 mg PO BID 06/03/19 06/03/19 3 Days Ago History ~05/31/19 Digoxin [Lanoxin] 0.125 mg PO DAILY 06/03/19 06/03/19 3 Days Ago History ~05/31/19 Folic Acid 100 mg PO DAILY 06/03/19 06/03/19 3 Days Ago History ~05/31/19 Furosemide [Lasix TAB] 40 mg PO QDAY 06/03/19 06/03/19 3 Days Ago History ~05/31/19 Insulin Lispro [Humalog 100 4 units SQ AC 06/03/19 06/03/19 3 Days Ago History UNITS/ML Kwikpen] ~05/31/19 Levothyroxine [Synthroid] 88 mcg PO QAM 06/03/19 06/03/19 3 Days Ago History ~05/31/19 Metformin HCl [metFORMIN] 1,000 mg PO BID 06/03/19 06/03/19 3 Days Ago History ~05/31/19 Potassium Chloride [K-Dur] 20 meq PO QDAY 06/03/19 06/03/19 3 Days Ago History ~05/31/19 carvediloL [Coreg] 6.25 mg PO BID 06/03/19 06/03/19 3 Days Ago History ~05/31/19 Famotidine [Pepcid] 20 mg PO QDAY #30 tablet 06/06/19 Unknown Rx Insulin NPH/Regular [NovoLIN 70/30] 50 unit SUB-Q BIDDIAB #100 units 06/06/19 Unknown Rx ED Physical Exam - General General appearance: obtunded - Head Head exam: Present: atraumatic, normocephalic - Eye Eye exam: Present: normal appearance - ENT ENT exam: Present: mucous membranes dry - Neck Neck exam: Present: normal inspection. Absent: tenderness - Respiratory Respiratory exam: Present: respiratory distress, accessory muscle use. Absent: wheezes, rales, stridor - Cardiovascular Cardiovascular Exam: Present: normal rhythm, tachycardia, normal heart sounds. Absent: systolic murmur, diastolic murmur, rubs, gallop - GI/Abdominal GI/Abdominal exam: Present: soft. Absent: distended, tenderness, guarding, rebound, rigid, pulsatile mass - Extremities Exam Extremities exam: Present: pedal edema, other (Venous stasis changes noted. 2+ pulses noted in the bilateral upper and lower extremities. The muscular compartments are soft.) - Back Exam Back exam: Present: normal inspection. Absent: CVA tenderness (R), paraspinal tenderness, vertebral tenderness - Neurological Exam Neurological exam: Present: altered, other (Patient is initially obtunded, breathing spontaneously. He does not open his eyes to command, he does not localize pain, and he is not speaking) - Skin Skin exam: Present: dry ED Course Vital Signs 12/18/19 12/18/19 12/18/19 13:27 13:33 14:07 Temperature 100.7 F H Pulse Rate 100 H 119 H Respiratory 16 Rate Blood Pressure 105/60 O2 Sat by Pulse 94 98 95 Oximetry 12/18/19 12/18/19 12/18/19 14:15 14:30 14:45 Temperature Pulse Rate 117 H 123 H 117 H Respiratory 16 16 16 Rate Blood Pressure 134/71 122/66 106/66 O2 Sat by Pulse 98 94 93 Oximetry 12/18/19 12/18/19 12/18/19 15:00 15:15 15:30 Temperature Pulse Rate 113 H 111 H 110 H Respiratory 16 16 17 Rate Blood Pressure 93/53 87/53 73/37 O2 Sat by Pulse 94 96 Oximetry 12/18/19 12/18/19 15:45 16:03 Temperature Pulse Rate 105 H 95 H Respiratory 23 Rate Blood Pressure 69/38 58/36 O2 Sat by Pulse 94 98 Oximetry - Reevaluation(s) Reevaluation #1: 12/18/19 12:45 Differential diagnosis, including but not limited to: Pneumonia, urinary tract infection, bacteremia, viremia, COVID-19, multifactorial encephalopathy Assessment and plan: 59-year-old gentleman with fever, altered mental status, respiratory distress, requiring intubation for ventilatory support. Screening laboratory studies pending, CT scan of the brain, chest pending. He will be admitted to the medical service once his initial diagnostics result, assuming No pathology is identified that would require transfer to a higher level of care. We will discussed with critical care on-call, and infectious disease on- call. We will load him empirically with Rocephin at this time. Additional antibiotics to be administered pending results of initial diagnostics. This is similar to a presentation that he had last year. Reevaluation #2: 12/18/19 13:33 Hospital physician, Dr. Brown to admit patient to the medical service. CT scan of the brain is negative to my interpretation. CT scan of the chest appears to demonstrate multiple infiltrates. Laboratory studies pending. Reevaluation #3: 12/18/19 14:45 Appreciate that patient meets systemic inflammatory response syndrome criteria. However, given high suspicion for COVID-19, and propensity for these patients to develop acute respiratory distress syndrome, in addition to the patient's history of diastolic heart failure, given that he has evidence of volume overload, manifest by lower extremity edema, crackles, rales and JVD, we will withhold 30 cc/kg bolus of IV fluids. Reevaluation #4: 12/18/19 16:04 Patient now hypotensive and found to be hypernatremic. Central line was inserted by the hospital physician, Dr. Brown. Verbal order provided to nurse to administer 1 L of normal saline stat, pressure bolus, and to report back to me regarding blood pressure. 12/18/19 16:04 Senior Training Specialist also instructed to contact [facility] and have a medication list faxed over for continuity. Reevaluation #5: 12/18/19 16:26 Patient hypotensive and requiring vasopressor support. Hospital physician and critical care physician have been updated. FiO2 is reviewed and appreciated, along with PaO2 of 69. Contacted respiratory therapy, and instructed them to increase FiO2. In addition, medication list is now reviewed from [facility]. He appears to have a history of diabetes insipidus, and also adrenal insufficiency. Hydrocortisone is ordered. Please note that when I intubated this patient hours ago, I did not have access to these medical records. 12/18/19 16:28 - Consultations Consultation #1: 12/18/19 12:49 The case, existing history, physical, and existing laboratory, radiographic data I discussed with our critical care physician on-call, Dr. Bartolome Anderson, who agrees with plan of care, he will see the patient, and agrees with placement into the intensive care unit. Consultation #2: 12/18/19 13:01 Discussed the case, history, physical examination with infectious disease, Dr. Pinzon, who agrees with plan of care, and will see the patient shortly. - EJ/Peripheral Line Neck L Time Out Performed: Yes Indications: nurses unable to establis Skin Cleansed in Sterile Fashion: Yes Size: 20 Dressing Placed: Tegaderm Patient Tolerated Procedure: well - Intubation Time Out Performed: Yes Sedative: Etomidate Mg Given: 20 Paralytic: Rocuronium Mg Given: 200 Laryngoscope: fiberoptic video scope Assist Device Used: fiberoptic device ET Tube Size: 7.5 Tube Secured Depth (cm): 23 Tube Secured Location: teeth Tube Placement Confirmation: visualized tube passing t, equal breath sounds bilat, no breath sounds over epi, confirmation by capnometr Patient Tolerated Procedure: well Intubation Complications: none Additional Comments: Patient placed on nasal cannula at 15 L/min. Saturation improved to 97%. Receives [id number] ventilation. Induced with 20 mg of etomidate. Video laryngoscopy performed, and endotracheal intubation is completed. He is then paralyzed with 200 mg of rocuronium. Patient was very lax after induction, and given acute respiratory distress, we were able to intubate without initial paralytic administration. ED Medical Decision Making - Lab Data Result diagrams: 12/18/19 14:45 12/18/19 14:45 Lab Results 12/18/19 Range/Units 12:23 POC Glucose 328 H (70-105) Lab Results 12/18/19 Range/Units 12:23 POC Glucose 328 H (70-105) Lab Results 12/18/19 Range/Units 12:23 POC Glucose 328 H (70-105) Lab Results 12/18/19 Range/Units 12:23 POC Glucose 328 H (70-105) Vital Signs 12/18/19 12/18/19 12/18/19 13:27 13:33 14:07 Temperature 100.7 F H Pulse Rate 100 H 119 H Respiratory 16 Rate Blood Pressure 105/60 O2 Sat by Pulse 94 98 95 Oximetry 12/18/19 12/18/19 12/18/19 14:15 14:30 14:45 Temperature Pulse Rate 117 H 123 H 117 H Respiratory 16 16 16 Rate Blood Pressure 134/71 122/66 106/66 O2 Sat by Pulse 98 94 93 Oximetry Lab Results 12/18/19 Range/Units 12:23 POC Glucose 328 H (70-105) Laboratory Results - last 24 hr 12/18/19 12:23 POC Glucose 328 H Lab Results 12/18/19 Range/Units 12:23 POC Glucose 328 H (70-105) - EKG Data -: EKG Interpreted by [facility] EKG shows normal: axis (Normal), intervals (Normal), QRS complexes (Normal) Rate: tachycardia (Tachycardia) - EKG Data 12/18/19 14:44 Sinus rhythm, tachycardia, rate 126 bpm, normal axis, QTC is prolonged, the EKG is abnormal, the EKG is not a STEMI - Radiology Data Radiology results: report reviewed, image reviewed Print Report Referring Physician: KYLAH LARSON Patient Name: CAROLYN SINGLETON Date of : 1960 Sex: Male Report Date: 2019-12-18 Report Status: Finalized Findings [facility] [address] [place] [address] Cat Scan Report Signed Patient: CAROLYN SINGLETON MR#: [id number] 5 : 1960 Acct:[id number] Age/Sex: 59 / M ADM Date: 12/18/19 Loc: ED Attending Dr: Ordering Physician: KYLAH LARSON MD Date of Service: 12/18/19 Procedure(s): CT head/brain wo con Accession Number(s): [id number] cc: KYLAH LARSON MD NONENHANCED CT SCAN OF THE HEAD: INDICATION / CLINICAL INFORMATION: 59 years Male; MAIN: Altered Mental Status COVID PT SCANNED ON OLD 4 SLICE. TECHNIQUE: Routine CT head without contrast. All CT scans at this location are performed using CT dose reduction for ALARA by means of automated exposure control. C OMPARISON: CT scan of the head from 06/04/2019 FINDINGS: BRAIN / INTRACRANIAL CONTENTS: No acute hemorrhage, mass effect, midline shift, hydrocephalus, or acute, large territorial infarct. No chronic infarct or focal atrophy. Normal brain volume and ve ntricular/sulcal size for age. Prominent extracerebral space bifrontally and in the posterior parietal region remains unchanged. No significant white matter abnormality. CT findings remain unchanged. CRANIOCERVICAL JUNCTION: No significant abnormality. ORBITS: No significant abnormality of visualized orbits. SINUSES / MASTOIDS: No significant abnormality of the visualized paranasal sinuses or mastoid air cells. ADDITIONAL FINDINGS: Endotracheal tube and nasogastric tube in place; this may explain edematous changes in the pharyngeal mucosal space IMPRESSION: No acute focal parenchymal lesion in the brain Signer Name: Samir Ahuja MD Signed: 12/18/2019 1:37 PM Workstation Name: [id number] Transcribed By: BS Dictated By: Rafi Boyer MD Electronically Authenticated By: Samir Boyer MD Signed Date/Time: 12/18/19 133 DD/ 1327 TD/TT: Print Report Referring Physician: KYLAH LARSON Patient Name: CAROLYN SINGLETON Date of : 1960 Sex: Male Report Date: 2019-12-18 Report Status: Finalized Findings [address] [address] Cat Scan Report Signed Patient: CAROLYN SINGLETON MR#: [id number] 5 : 1960 Acct:[id number] Age/Sex: 59 / M ADM Date: 12/18/19 Loc: ED Attending Dr: Ordering Physician: KYLAH LARSON MD Date of Service: 12/18/19 Procedure(s): CT chest wo con Accession Number(s): [id number] cc: KYLAH LARSON MD CT CHEST WITHOUT CONTRAST INDICATION / CLINICAL INFORMATION: MAIN: dyspnea, hypoxia covid pt scanned on 4 slice. TECHNIQUE: Axial CT images were obtained through the chest without contrast. All CT scans at this location are performed using CT dose reduction for ALARA by means of automated exposure control. COMPARISON: Chest CT 05/31/2019 FINDINGS: Statements: Evaluation is slightly degraded by patient's arms down by the side. LINES AND TUBES: Endotracheal tube in place with tip terminating approximately 2 cm above the level of the judy. Enteric tube in place with tip terminating in the gastric body. HEART: No significant abnormality. THORACIC AORTA: No significant abnormality. MEDIASTINUM and FAITH: There are a few borderline but not technically enlarged mediastinal lymph nodes. LUNGS: There are patchy bilateral nodular and consolidative airspace opacities with a lower lobe predominance. PLEURA: No significant pleural effusion. No pneumothorax. ADDITIONAL FINDINGS: There are multiple enlarged partially visualized left supraclavicular and left lower cervical chain lymph nodes, for example a left-sided radicular node measuring up to 1.7 cm short axis (series 3, image 9). UPPER ABDOMEN: Degraded by streak artifact. No obvious abnormality. SKELETAL SYSTEM: No significant abnormality. IMPRESSION: 1. Patchy bilateral n odular and consolidative airspace opacities which are nonspecific but likely related to the reported history of Covid. 2. Multiple enlarged partially visualized left supraclavicular and lower cervical chain lymph nodes. While these are nonspecific and may be reactive, a neoplastic process is possible, recommend short interval follow-up after patient recovers from the acute episode. Signer Name: Nelia Townsend MD Signed: 12/18/2019 2:00 PM Workstation Name: [id number] Transcribed By: [facility] Dictated By: Nelia Townsend MD Electronically Authenticated By: Nelia Townsend MD Signed Date/Time: 12/18/19 1400 Print Report Referring Physician: KYLAH LARSON Patient Name: CAROLYN SINGLETON Date of : 1960 Sex: Male Report Date: 2019-12-18 Report Status: Finalized Findings [facility] [address] [place] [address] XRay Report Signed Patient: CAROLYN SINGLETON MR#: [id number] 5 : 1960 Acct:[id number] Age/Sex: 59 / M ADM Date: 12/18/19 Loc: ED Attending Dr: Ordering Physician: KYLAH LARSON MD Date of Service: 12/18/19 Procedure(s): XR chest 1V ap Accession Number(s): [id number] cc: KYLAH LARSON MD Fluoro Time In Minutes: CHEST 1 VIEW INDICATION / CLINICAL INFORMATION: ETT placement. COMPARISON: Chest radiograph 06/04/[address] chest same day FINDINGS: SUPPORT DEVICES: Endotracheal tube in place with tip terminating approximately 5 cm above the level of the judy. Enteric tube in place coursing beneath the diaphragm with the tip not visualized. HEART / MEDIASTINUM: Stable, borderline heart size. LUNGS / PLEURA: As seen on chest CT earlier same day, there are p atchy bilateral airspace opacities most prominent in the left base and right midlung. These appear increased compared with prior radiograph. No large pleural effusion. No pneumothorax. ADDITIONAL FINDINGS: No significant additional findings. IMPRESSION: 1. Appropriately positioned endotracheal tube. 2. Patchy bilateral airspace opacities worrisome for multifocal infection. Signer Name: Nelia Townsend MD Signed: 12/18/2019 2:36 PM Workstation Name: [id number] Transcribed By: C Dictated By: Nelia Townsend MD Electronically Authenticated By: Nelia Townsend MD Signed Date/Time: 12/18/19 1436 DD/ 1434 Critical Care Time: Yes Critical care time in (mins) excluding proc time.: 60 Critical care attestation.: If time is entered above; I have spent that time in minutes in the direct care of this critically ill patient, excluding procedure time. ED Disposition Clinical Impression: Acute respiratory failure, Suspected 2019-nCoV infection Disposition: -09 OP ADMIT IP TO THIS HOSP Is pt being admited?: Yes Does the pt Need Aspirin: No Condition: Critical
[2019-12-18] MEDS ORDERED: cefTRIAXone/NS 2 GM/100 ML 2 GM/100 ML BAG IV ONE (13:00)
[2019-12-18] MEDS ORDERED: LORazepam 100 MG in SODIUM CHLORIDE 0.9% 50 ML, EMPTY BAG 0 ML IV SCH (13:00)
--- NOTE | 2019-12-18 13:31 | History and Physical Report ---
History of Present Illness Chief complaint: Difficulty breathing, confused History of present illness: 59 YO Male with Diastolic CHF, Obesity Hypoventilation Syndrome, HTN, DM, Hypothyroidism presents to ED for evaluation. Patient is intubated and on ventilatory support at the time of my evaluation and is unable to provide history. Patient history taken from EMS staff, ED staff, and medical record. As per staff, the patient was noticed to be confused and leaning on his vehicle outside his home and a good Yazidi notified EMS. Upon arrival the patient was found to be lethargic and in severe respiratory distress with a pulse oximetry of 70%. Patient placed on submental oxygen and transported to [facility] for further evaluation and care. Patient seen and evaluated in the emergency department. Lab and imaging studies reviewed. Patient was found to have a pulse oximetry of 83% on room air, using accessory muscles to breathe, unable to handle his secretions, and was unable to protect his airway. Patient intubated and placed on ventilatory support in the emergency department. Patient also found to have bilateral pneumonia and clinical findings suggestive of COVID-19 infection. Patient became hypotensive in the emergency department and was found to have a systolic blood pressure in the 60s. Patient subsequently found to have evidence of sepsis and initiated on sepsis protocol as well as IV pressor support. Critical care team consulted in ED. Infectious disease team consulted in ED. Coronavirus PCR ordered in the emergency department. No further history obtainable. Patient admitted to ICU due to increased risk of cardiopulmonary pulmonary decompensation. Prior admission on 05/31/2019 reviewed. All medication listed at time of admission have been reconciled. Past History Past Medical History: diabetes, heart failure, hypertension, other (See HPI) Past Surgical History: cholecystectomy Social history: single. denies: smoking, alcohol abuse, prescription drug abuse Family history: diabetes, hypertension Medications and Allergies Allergies Allergy/AdvReac Type Severity Reaction Status Date / Time Unable to Assess Allergy Unverified 05/31/19 07:56 Home Medications Medication Instructions Recorded Confirmed Last Taken Type Ipratropium/Albuterol Sulfate 1 ampul IH TIDRT #90 ampul.neb 06/02/19 Unknown Rx [DUONEB *Not for PRN Use*] Aspirin [Aspirin BABY CHEW TAB] 81 mg PO DAILY 06/03/19 06/03/19 3 Days Ago History ~05/31/19 Desmopressin [Ddavp] 0.2 mg PO BID 06/03/19 06/03/19 3 Days Ago History ~05/31/19 Digoxin [Lanoxin] 0.125 mg PO DAILY 06/03/19 06/03/19 3 Days Ago History ~05/31/19 Folic Acid 100 mg PO DAILY 06/03/19 06/03/19 3 Days Ago History ~05/31/19 Furosemide [Lasix TAB] 40 mg PO QDAY 06/03/19 06/03/19 3 Days Ago History ~05/31/19 Insulin Lispro [Humalog 100 4 units SQ AC 06/03/19 06/03/19 3 Days Ago History UNITS/ML Kwikpen] ~05/31/19 Levothyroxine [Synthroid] 88 mcg PO QAM 06/03/19 06/03/19 3 Days Ago History ~05/31/19 Metformin HCl [metFORMIN] 1,000 mg PO BID 06/03/19 06/03/19 3 Days Ago History ~05/31/19 Potassium Chloride [K-Dur] 20 meq PO QDAY 06/03/19 06/03/19 3 Days Ago History ~05/31/19 carvediloL [Coreg] 6.25 mg PO BID 06/03/19 06/03/19 3 Days Ago History ~05/31/19 Famotidine [Pepcid] 20 mg PO QDAY #30 tablet 06/06/19 Unknown Rx Insulin NPH/Regular [NovoLIN 70/30] 50 unit SUB-Q BIDDIAB #100 units 06/06/19 Unknown Rx Active Meds: Active Medications Fentanyl (Sublimaze) 50 mcg IV Q10MIN PRN PRN Reason: ANALGESIA Hydrophilic Ointment (Vaseline Lip Therapy) 1 applic TP Q2HR PRN PRN Reason: Dry Lips Fentanyl Citrate (Fentanyl Drip Premix) 2,000 mcg in 100 mls @ 0 mls/hr IV TITR SHANEL; Protocol Lorazepam 100 mg/ Sodium Chloride/ Miscellaneous Information 100 mls @ 1 mls/hr IV TITR SHANEL; Protocol Lorazepam (Ativan) 2 mg IV Q10MIN PRN PRN Reason: Agitation Multi-Ingred Cream/Lotion/Oil/Oint (Artificial Tears Ophth Oint) 1 applic OU Q4HR PRN PRN Reason: Dry Eye(s) Sodium Chloride (Nacl 0.9% 500 Ml) 5 ml IV DIRECT PRN PRN 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 Absent: rub, click - Extremities Extremities: pulses symmetrical Extremity abnormal: edema Peripheral Pulses: abnormal (Capillary refill greater than 3.5 seconds) - Abdominal General gastrointestinal: Present: soft, normal bowel sounds, other (Protuberant). Absent: hepatomegaly, splenomegaly Male genitourinary: Present: normal - Integumentary Integumentary: Present: dry, clammy, decreased turgor - Musculoskeletal Musculoskeletal: generalized weakness - Psychiatric Psychiatric: no appropriate mood/affect, no intact judgment & insight, no memory intact - Neurologic Neurologic: moves all extremities, gait normal Results - Labs CBC & Chem 7: 12/18/19 14:45 12/18/19 14:45 Labs: Abnormal lab results 12/18/19 Range/Units 12:23 POC Glucose 328 H (70-105) Assessment and Plan - Patient Problems (1) Acute respiratory failure Current Visit: Yes Status: Acute Qualifiers: Plan to address problem: Patient intubated, placed on ventilatory support. Wean vent as tolerated, sedation holiday, daily spontaneous breathing trials, chest x-ray, pulse oximetry, critical care team consulted in ED. The high probability of a clinically significant, sudden or life threatening deterioration of the [cardiac, renal, neuro, pulmonary, infectious disease] system(s) required my full and direct attention, intervention and personal management. The aggregate critical care time was [95] minutes. This time is in addition to time spent performing reported procedures but includes the following: [x] Data Review and interpretation [x] Patient assessment and monitoring of vital signs [x] Documentation [x] Medication orders and management (2) Sepsis Current Visit: Yes Status: Acute Qualifiers: Sepsis type: sepsis due to unspecified organism Severe sepsis shock status: with septic shock Plan to address problem: Sepsis protocol: CBC, CMP, chest x-ray, urinalysis, blood cultures, IV antibiotic therapy, IV fluid resuscitation therapy, monitor urine output every shift, maintain mean arterial blood pressure greater than or equal to 65, IV pre ssor support. (3) Suspected 2019-nCoV infection Current Visit: Yes Status: Acute Plan to address problem: Initiate COVID-19 protocol: Infectious disease team consulted in ED, COVID-19 PCR ordered in ED. (4) Diastolic CHF Current Visit: Yes Status: Acute Qualifiers: Heart failure chronicity: acute on chronic Qualified Code(s): I50.33 - Acute on chronic diastolic (congestive) heart failure Plan to address problem: Strict I's/O, daily weight, monitor urine output every shift, diuresis, submental oxygen, blood pressure control. (5) Diabetes Current Visit: Yes Status: Acute Plan to address problem: Sliding scale insulin diet, Accu-Chek, hypoglycemia protocol. (6) Hypothyroidism Current Visit: Yes Status: Acute Qualifiers: Hypothyroidism type: acquired Qualified Code(s): E03.9 - Hypothyroidism, unspecified Plan to address problem: Synthroid therapy, supportive care. (7) Obesity hypoventilation syndrome Current Visit: Yes Status: Acute Plan to address problem: Submental oxygen, noninvasive positive pressure ventilation as clinically indicated, outpatient pulmonary follow-up for sleep study. (8) Bilateral pneumonia Current Visit: No Status: Acute Qualifiers: Lung location: unspecified part of lung Plan to address problem: Pneumonia protocol: IV antibiotic therapy, pulse oximetry, chest x-ray, CBC, CMP, check blood cultures. (9) HTN (hypertension) Current Visit: No Status: Chronic Qualifiers: Hypertension type: essential hypertension Qualified Code(s): I10 - Essential (primary) hypertension Plan to address problem: Monitor blood pressure every shift, continue medical management. (10) DVT prophylaxis Current Visit: No Status: Acute Plan to address problem: SCD to bilateral lower extremities while in bed, prophylactic heparin
[2019-12-18] MEDS ORDERED: DEXTROSE 50% IN WATER (25GM) 50 ML SYRINGE IV PRN (13:36)
--- NOTE | 2019-12-18 13:41 | Cat Scan Report ---
NONENHANCED CT SCAN OF THE HEAD: INDICATION / CLINICAL INFORMATION: 59 years Male; MAIN: Altered Mental Status COVID PT SCANNED ON OLD 4 SLICE. TECHNIQUE: Routine CT head without contrast. All CT scans at this location are performed using CT dos e reduction for ALARA by means of automated exposure control. COMPARISON: CT scan of the head from 06/04/2019 FINDINGS: BRAIN / INTRACRANIAL CONTENTS: No acute hemorrhage, mass effect, midline shift, hydrocephalus, or acu te, large territorial infarct. No chronic infarct or focal atrophy. Normal brain volume and ventricul ar/sulcal size for age. Prominent extracerebral space bifrontally and in the posterior parietal regio n remains unchanged. No significant white matter abnormality. CT findings remain unchanged. CRANIOCERVICAL JUNCTION: No significant abnormality. ORBITS: No significant abnormality of visualized orbits. SINUSES / MASTOIDS: No significant abnormality of the visualized paranasal sinuses or mastoid air jaziel ls. ADDITIONAL FINDINGS: Endotracheal tube and nasogastric tube in place; this may explain edematous bruce ges in the pharyngeal mucosal space IMPRESSION: No acute focal parenchymal lesion in the brain Signer Name: Samir Ahuja MD Signed: 12/18/2019 1:37 PM Workstation Name: [id number]
--- NOTE | 2019-12-18 14:04 | Cat Scan Report ---
CT CHEST WITHOUT CONTRAST INDICATION / CLINICAL INFORMATION: MAIN: dyspnea, hypoxia covid pt scanned on 4 slice. TECHNIQUE: Axial CT images were obtained through the chest without contrast. All CT scans at this location are p erformed using CT dose reduction for ALARA by means of automated exposure control. COMPARISON: Chest CT 05/31/2019 FINDINGS: Statements: Evaluation is slightly degraded by patient's arms down by the side. LINES AND TUBES: Endotracheal tube in place with tip terminating approximately 2 cm above the level o f the judy. Enteric tube in place with tip terminating in the gastric body. HEART: No significant abnormality. THORACIC AORTA: No significant abnormality. MEDIASTINUM and FAITH: There are a few borderline but not technically enlarged mediastinal lymph nodes . LUNGS: There are patchy bilateral nodular and consolidative airspace opacities with a lower lobe pred ominance. PLEURA: No significant pleural effusion. No pneumothorax. ADDITIONAL FINDINGS: There are multiple enlarged partially visualized left supraclavicular and left l ower cervical chain lymph nodes, for example a left-sided radicular node measuring up to 1.7 cm short axis (series 3, image 9). UPPER ABDOMEN: Degraded by streak artifact. No obvious abnormality. SKELETAL SYSTEM: No significant abnormality. IMPRESSION: 1. Patchy bilateral nodular and consolidative airspace opacities which are nonspecific but likely rel ated to the reported history of Covid. 2. Multiple enlarged partially visualized left supraclavicular and lower cervical chain lymph nodes. While these are nonspecific and may be reactive, a neoplastic process is possible, recommend short in terval follow-up after patient recovers from the acute episode. Signer Name: Nelia Townsedn MD Signed: 12/18/2019 2:00 PM Workstation Name: [id number]
--- NOTE | 2019-12-18 14:41 | XRay Report ---
CHEST 1 VIEW INDICATION / CLINICAL INFORMATION: ETT placement. COMPARISON: Chest radiograph 06/04/[address] chest same day FINDINGS: SUPPORT DEVICES: Endotracheal tube in place with tip terminating approximately 5 cm above the level o f the judy. Enteric tube in place coursing beneath the diaphragm with the tip not visualized. HEART / MEDIASTINUM: Stable, borderline heart size. LUNGS / PLEURA: As seen on chest CT earlier same day, there are patchy bilateral airspace opacities m ost prominent in the left base and right midlung. These appear increased compared with prior radiogra ph. No large pleural effusion. No pneumothorax. ADDITIONAL FINDINGS: No significant additional findings. IMPRESSION: 1. Appropriately positioned endotracheal tube. 2. Patchy bilateral airspace opacities worrisome for multifocal infection. Signer Name: Nelia Townsend MD Signed: 12/18/2019 2:36 PM Workstation Name: [id number]
--- NOTE | 2019-12-18 14:45 | Procedure Note ---
Date of procedure: 12/18/19 Pre-op diagnosis: Respiratory failure Post-op diagnosis: same Procedure: Left internal jugular vein central line placement under ultrasound guidance A timeout was taken to verify the correct patient, procedure, and operative site. The patient was prepped and draped in the usual sterile fashion. Local anesthesia was obtained with 1% lidocaine subcutaneous injection. AC seeker needle was used to access the left internal jugular vein under ultrasound too dance without difficulty. The Seldinger technique was used to access the left internal jugular vein. After accessing the left internal jugular vein while using ultrasound the seeker needle was advanced into the left internal jugular vein without difficulty. A guidewire was then passed into the internal jugular vein with subsequent removal of the seeker needle over the guidewire. A scalpel was used to incise the skin at the guidewire entry site. A dilator was then passed over the guidewire into the left internal jugular vein and subsequently removed. A pre-flushed triple-lumen catheter was then passed over the guidewire into the left internal jugular vein. A Biopatch was placed at the insertion site. The triple-lumen catheter was then sewn in place. All 3 ports flush and draw with ease. A postoperative chest x-ray was ordered and reveals no pneumothorax. Triple-lumen catheter in position in the SVC. Complications none Anesthesia: local Surgeon: WILLIAN WILKINSON Estimated blood loss: minimal Pathology: none Condition: critical Disposition: ICU
--- NOTE | 2019-12-18 14:56 | Consultation ---
History of Present Illness Consult date: 12/18/19 Requesting physician: KYLAH LARSON Reason for consult: other (Acute Hypoxemic Respiratory Failure; AMS) History of present illness: PCCM CONSULT NOTE (Full dictation # [id number]) Please see dictated notes for full details Past History Past Medical History: diabetes, heart failure, hypertension, other (See HPI) Past Surgical History: cholecystectomy Social history: single. denies: smoking, alcohol abuse, prescription drug abuse Family history: diabetes, hypertension Medications and Allergies Allergies Allergy/AdvReac Type Severity Reaction Status Date / Time Unable to Assess Allergy Unverified 05/31/19 07:56 Home Medications Medication Instructions Recorded Confirmed Last Taken Type Ipratropium/Albuterol Sulfate 1 ampul IH TIDRT #90 ampul.neb 06/02/19 Unknown Rx [DUONEB *Not for PRN Use*] Aspirin [Aspirin BABY CHEW TAB] 81 mg PO DAILY 06/03/19 06/03/19 3 Days Ago History ~05/31/19 Desmopressin [Ddavp] 0.2 mg PO BID 06/03/19 06/03/19 3 Days Ago History ~05/31/19 Digoxin [Lanoxin] 0.125 mg PO DAILY 06/03/19 06/03/19 3 Days Ago History ~05/31/19 Folic Acid 100 mg PO DAILY 06/03/19 06/03/19 3 Days Ago History ~05/31/19 Furosemide [Lasix TAB] 40 mg PO QDAY 06/03/19 06/03/19 3 Days Ago History ~05/31/19 Insulin Lispro [Humalog 100 4 units SQ AC 06/03/19 06/03/19 3 Days Ago History UNITS/ML Kwikpen] ~05/31/19 Levothyroxine [Synthroid] 88 mcg PO QAM 06/03/19 06/03/19 3 Days Ago History ~05/31/19 Metformin HCl [metFORMIN] 1,000 mg PO BID 06/03/19 06/03/19 3 Days Ago History ~05/31/19 Potassium Chloride [K-Dur] 20 meq PO QDAY 06/03/19 06/03/19 3 Days Ago History ~05/31/19 carvediloL [Coreg] 6.25 mg PO BID 06/03/19 06/03/19 3 Days Ago History ~05/31/19 Famotidine [Pepcid] 20 mg PO QDAY #30 tablet 06/06/19 Unknown Rx Insulin NPH/Regular [NovoLIN 70/30] 50 unit SUB-Q BIDDIAB #100 units 06/06/19 Unknown Rx Active Meds: Active Medications Albuterol/Ipratropium (Duoneb *Not For Prn Use*) 1 ampul IH TIDRT [facility] Aspirin (Baby Aspirin) 81 mg PO DAILY [facility] Carvedilol (Coreg) 6.25 mg PO BID [facility] Desmopressin Acetate (Ddavp) 0.2 mg PO BID [facility] Dextrose (D50w (25gm) Syringe) 50 ml IV Q30MIN PRN; Protocol PRN Reason: Hypoglycemia Digoxin (Lanoxin) 0.125 mg PO DAILY [facility] Famotidine (Pepcid) 20 mg PO QDAY [facility] Fentanyl (Sublimaze) 50 mcg IV Q10MIN PRN PRN Reason: ANALGESIA Furosemide (Lasix) 40 mg PO QDAY [facility] Hydrophilic Ointment (Vaseline Lip Therapy) 1 applic TP Q2HR PRN PRN Reason: Dry Lips Fentanyl Citrate (Fentanyl Drip Premix) 2,000 mcg in 100 mls @ 6.804 mls/hr IV TITR SHANEL; Protocol Lorazepam 100 mg/ Sodium Chloride/ Miscellaneous Information 100 mls @ 1 mls/hr IV TITR SHANEL; Protocol Last Admin: 12/18/19 13:59 Dose: 1 mg/hr, 1 mls/hr Documented by: Insulin Human Lispro (Humalog) 0 unit SUB-Q ACHS [facility]; Protocol Levothyroxine Sodium (Synthroid) 88 mcg PO QAM@0600 [facility] Lorazepam (Ativan) 2 mg IV Q10MIN PRN PRN Reason: Agitation Miscellaneous Medication (Folic Acid [Folic Acid]) 100 mg PO DAILY [facility] Multi-Ingred Cream/Lotion/Oil/Oint (Artificial Tears Ophth Oint) 1 applic OU Q4HR PRN PRN Reason: Dry Eye(s) Potassium Chloride (K-Dur) 20 meq PO QDAY [facility] Sodium Chloride (Nacl 0.9% 500 Ml) 5 ml IV DIRECT PRN PRN 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
[2019-12-18] MEDS: IPRATROPIUM/ALBUTEROL SULFATE 3 ML AMPUL.NEB IH SCH ×2 (15:13→21:19)
[2019-12-18 15:14] LABS: Basophils # (Auto) 0.1 K/mm3 (0.0-0.1); Basophils % (Auto) 0.7 % (0.0-1.8); Eosinophils # (Auto) 0.4 K/mm3 (0.0-0.4); Eosinophils % (Auto) 4.8 % (0.0-4.3); Lymphocytes # (Auto) 1.4 K/mm3 (1.2-5.4); Lymphocytes % (Auto) 16.5 % (13.4-35.0); Mean Corpuscular HGB Conc 30 % (32-34); Mean Corpuscular Volume 86 fl (84-94); Monocytes % (Auto) 11.6 % (0.0-7.3); Platelet Count 228 K/mm3 (140-440); Red Blood Count 4.11 M/mm3 (3.65-5.03); Red Cell Distribution Width 18.8 % (13.2-15.2)
[2019-12-18 15:17] LABS: Hematocrit 35.2 % (35.5-45.6); Hemoglobin 10.4 gm/dl (11.8-15.2)
--- NOTE | 2019-12-18 15:20 | XRay Report ---
CHEST - 1 VIEW INDICATION: Verify central line placement COMPARISON: Earlier today FINDINGS: SUPPORT DEVICES: New left IJ CVL with tip in the SVC. Support device positioning. HEART: Stable cardiomediastinal silhouette. LUNGS/PLEURA: Persistent patchy airspace disease greatest in the left lung base with trace right eff usion. No pneumothorax. ADDITIONAL FINDINGS: None. IMPRESSION: Satisfactory left IJ line placement with no complication. Signer Name: Martinez Cooper MD Signed: 12/18/2019 3:15 PM Workstation Name: [id number]
[2019-12-18] MEDS ORDERED: SODIUM CHLORIDE 0.9% 1000 ML 1,000 ML ONE (15:29)
[2019-12-18 15:33] LABS: INR 1.1 (0.87-1.13)
[2019-12-18 15:34] LABS: Partial Thromboplastin Time 29.4 Sec. (24.2-36.6)
[2019-12-18] MEDS ORDERED: fentaNYL DRIP Premix 2,000 MCG/100 ML BAG IV ONE ×2 (15:35→20:15)
[2019-12-18 15:37] LABS: C-Reactive Protein 8.4 mg/dL (0.00-1.30)
[2019-12-18 15:40] LABS: Alanine Aminotransferase 33 units/L (7-56); Albumin 3.6 g/dL (3.9-5); BUN/Creatinine Ratio 23; Blood Urea Nitrogen 32 mg/dL (9-20); Hemolysis Index 0
[2019-12-18] MEDS ORDERED: SODIUM CHLORIDE 0.9% 500 ML 500 ML IV ONE (15:42)
[2019-12-18] MEDS: fentaNYL DRIP Premix 2,000 MCG/100 ML BAG IV SCH ×2 (15:43→20:20)
[2019-12-18] MEDS ORDERED: NORepinephrine/NS 4 MG-250 ML 4 MG/250 ML BAG IV ONE (16:09)
[2019-12-18 16:18] LABS: ABG Base Excess 5.4 mmol/L (-2.0-3.0); ABG HCO3 31.8 mmol/L (20.0-26.0); ABG Methemoglobin 0.5 % (0.0-1.5); ABG Oxygen Saturation 95.1 % (95.0-99.0); ABG PCO2 56.7 mm Hg; ABG PH 7.367 pH Units (7.350-7.450); ABG PO2 69.8 mm Hg (80.0-90.0)
[2019-12-18] MEDS ORDERED: INSULIN LISPRO 100 UNIT/ML SUB-Q ONE (16:25)
[2019-12-18] MEDS ORDERED: SODIUM CHLORIDE 0.9% 1000 ML IV SOLN IV ONE (16:25)
[2019-12-18] MEDS: INSULIN LISPRO 100 UNIT/ML SUB-Q SCH ×2 (16:26→22:57)
[2019-12-18] MEDS ORDERED: HYDROCORTISONE SOD SUCC 100 MG/2 ML VIAL IV ONE (16:28)
--- NOTE | 2019-12-18 16:34 | Consultation ---
History of Present Illness - Reason for Consult Consult date: 12/18/19 - History of Present Illness 59-year-old male past medical history diastolic CHF, OHS, HTN, DM 2, hypothyroidism admitted with confusion after being found by a neighbor. Patient is currently intubated and sedated, as such history taken from the chart. On arrival patient was found to be lethargic, and in respiratory distress and hypoxic. As such she was intubated. I discussed the case Dr. García, he is placing the patient on COVID-19 pathway and test should be obtained shortly. Febrile to 100.7 degrees with a normal white count. Currently seeing ceftriaxone. Blood cultures are pending. Imaging personally reviewed: Chest x-ray: Left lower lobe airspace disease Past History Past Medical History: diabetes, heart failure, hypertension, other (See HPI) Past Surgical History: cholecystectomy Social history: single. denies: smoking, alcohol abuse, prescription drug abuse Family history: diabetes, hypertension Medications and Allergies Allergies Allergy/AdvReac Type Severity Reaction Status Date / Time Unable to Assess Allergy Unverified 05/31/19 07:56 Home Medications Medication Instructions Recorded Confirmed Last Taken Type Ipratropium/Albuterol Sulfate 1 ampul IH TIDRT #90 ampul.neb 06/02/19 Unknown Rx [DUONEB *Not for PRN Use*] Aspirin [Aspirin BABY CHEW TAB] 81 mg PO DAILY 06/03/19 06/03/19 3 Days Ago History ~05/31/19 Desmopressin [Ddavp] 0.2 mg PO BID 06/03/19 06/03/19 3 Days Ago History ~05/31/19 Digoxin [Lanoxin] 0.125 mg PO DAILY 06/03/19 06/03/19 3 Days Ago History ~05/31/19 Folic Acid 100 mg PO DAILY 06/03/19 06/03/19 3 Days Ago History ~05/31/19 Furosemide [Lasix TAB] 40 mg PO QDAY 06/03/19 06/03/19 3 Days Ago History ~05/31/19 Insulin Lispro [Humalog 100 4 units SQ AC 06/03/19 06/03/19 3 Days Ago History UNITS/ML Kwikpen] ~05/31/19 Levothyroxine [Synthroid] 88 mcg PO QAM 06/03/19 06/03/19 3 Days Ago History ~05/31/19 Metformin HCl [metFORMIN] 1,000 mg PO BID 06/03/19 06/03/19 3 Days Ago History ~05/31/19 Potassium Chloride [K-Dur] 20 meq PO QDAY 06/03/19 06/03/19 3 Days Ago History ~05/31/19 carvediloL [Coreg] 6.25 mg PO BID 06/03/19 06/03/19 3 Days Ago History ~05/31/19 Famotidine [Pepcid] 20 mg PO QDAY #30 tablet 06/06/19 Unknown Rx Insulin NPH/Regular [NovoLIN 70/30] 50 unit SUB-Q BIDDIAB #100 units 06/06/19 Unknown Rx Active Meds: Active Medications Albuterol/Ipratropium (Duoneb *Not For Prn Use*) 1 ampul IH TIDRT [facility] Last Admin: 12/18/19 15:13 Dose: Not Given Documented by: Aspirin (Baby Aspirin) 81 mg PO DAILY [facility] Carvedilol (Coreg) 6.25 mg PO BID [facility] Desmopressin Acetate (Ddavp) 0.2 mg PO BID [facility] Dextrose (D50w (25gm) Syringe) 50 ml IV Q30MIN PRN; Protocol PRN Reason: Hypoglycemia Digoxin (Lanoxin) 0.125 mg PO DAILY [facility] Famotidine (Pepcid) 20 mg PO QDAY [facility] Fentanyl (Sublimaze) 50 mcg IV Q10MIN PRN PRN Reason: ANALGESIA Folic Acid (Folvite) 1 mg PO DAILY [facility] Furosemide (Lasix) 40 mg PO QDAY [facility] Heparin Sodium (Porcine) (Heparin) 5,000 unit SUB-Q Q12HR [facility] Hydrophilic Ointment (Vaseline Lip Therapy) 1 applic TP Q2HR PRN PRN Reason: Dry Lips Fentanyl Citrate (Fentanyl Drip Premix) 2,000 mcg in 100 mls @ 6.804 mls/hr IV TITR SHANEL; Protocol Last Admin: 12/18/19 15:43 Dose: 1 mcg/kg/hr, 6.804 mls/hr Documented by: Norepinephrine (Levophed Drip 4 Mg/Ns 250 Ml) 4 mg in 250 mls @ 7.5 mls/hr IV TITR [facility]; Protocol Ceftriaxone Sodium (Rocephin/Ns 2 Gm/100 Ml) 2 gm in 100 mls @ 200 mls/hr IV Q24HR SHANEL; Protocol Insulin Human Lispro (Humalog) 0 unit SUB-Q ACHS SHANEL; Protocol Last Admin: 12/18/19 16:26 Dose: 6 unit Documented by: Levothyroxine Sodium (Synthroid) 88 mcg PO QAM@0600 [facility] Lorazepam (Ativan) 2 mg IV Q10MIN PRN PRN Reason: Agitation Multi-Ingred Cream/Lotion/Oil/Oint (Artificial Tears Ophth Oint) 1 applic OU Q4HR PRN PRN Reason: Dry Eye(s) Potassium Chloride (K-Dur) 20 meq PO QDAY SHANEL Sodium Chloride (Sodium Chloride Flush Syringe 10 Ml) 10 ml IV BID SHANEL Sodium Chloride (Sodium Chloride Flush Syringe 10 Ml) 10 ml IV PRN PRN PRN Reason: LINE FLUSH Sodium Chloride (Nacl 0.9% 1000 Ml) 4,080 ml 30 ml/kg (4080 ml) IV ONCE ONE Stop: 12/18/19 16:26 Review of Systems ROS unobtainable: due to endotracheal tube Physical Examination - Physical Exam Narrative exam: Physical exam deferred due to PPE conservation strategy. Please see primary team's note for full physical exam. - Constitutional Vitals: Vital Signs Temp Pulse Resp BP Pulse Ox 100.7 F H 95 H 23 58/36 98 12/18/19 13:33 12/18/19 16:03 12/18/19 15:45 12/18/19 16:03 12/18/19 16:03 Temperature -Last 24 Hours Temperature 100.7 F Results - Labs CBC & Chem 7: 12/18/19 14:45 12/18/19 14:45 Labs: Abnormal lab results 12/18/19 12/18/19 12/18/19 Range/Units 12:23 14:45 14:45 Hgb 10.4 L (11.8-15.2) gm/dl Hct 35.2 L (35.5-45.6) % MCH 25 L (28-32) pg MCHC 30 L (32-34) % RDW 18.8 H (13.2-15.2) % Loup % (Auto) 11.6 H (0.0-7.3) % Eos % (Auto) 4.8 H (0.0-4.3) % Loup # 1.0 H (0.0-0.8) K/mm3 D-Dimer (0-234) ng/mlDDU ABG pO2 (80.0-90.0) mm Hg ABG HCO3 (20.0-26.0) mmol/L ABG Base Excess (-2.0-3.0) mmol/L ABG Hemoglobin (14.0-18.0) gm/dl Oxyhemoglobin (95.0-99.0) % Sodium (137-145) mmol/L Chloride (98-107) mmol/L Carbon Dioxide (22-30) mmol/L BUN (9-20) mg/dL Glucose (75-100) mg/dL POC Glucose 328 H (70-105) Lactate Dehydrogenase (91-180) units/L Total Creatine Kinase 40 L (55-170) units/L C-Reactive Protein (0.00-1.30) mg/dL Albumin (3.9-5) g/dL Digoxin (0.9-2.0) ng/mL Salicylates (2.8-20.0) mg/dL Acetaminophen (10.0-30.0) ug/mL 12/18/19 12/18/19 12/18/19 Range/Units 14:45 14:45 14:45 Hgb (11.8-15.2) gm/dl Hct (35.5-45.6) % MCH (28-32) pg MCHC (32-34) % RDW (13.2-15.2) % Loup % (Auto) (0.0-7.3) % Eos % (Auto) (0.0-4.3) % Loup # (0.0-0.8) K/mm3 D-Dimer 534.45 H (0-234) ng/mlDDU ABG pO2 (80.0-90.0) mm Hg ABG HCO3 (20.0-26.0) mmol/L ABG Base Excess (-2.0-3.0) mmol/L ABG Hemoglobin (14.0-18.0) gm/dl Oxyhemoglobin (95.0-99.0) % Sodium 156 H (137-145) mmol/L Chloride 112.3 H (98-107) mmol/L Carbon Dioxide 31 H (22-30) mmol/L BUN 32 H (9-20) mg/dL Glucose 328 H (75-100) mg/dL POC Glucose (70-105) Lactate Dehydrogenase 235 H (91-180) units/L Total Creatine Kinase (55-170) units/L C-Reactive Protein 8.50 H (0.00-1.30) mg/dL Albumin 3.6 L (3.9-5) g/dL Digoxin 0.3 L (0.9-2.0) ng/mL Salicylates < 0.3 L (2.8-20.0) mg/dL Acetaminophen (10.0-30.0) ug/mL 12/18/19 12/18/19 12/18/19 Range/Units 14:45 14:45 16:00 Hgb (11.8-15.2) gm/dl Hct (35.5-45.6) % MCH (28-32) pg MCHC (32-34) % RDW (13.2-15.2) % Loup % (Auto) (0.0-7.3) % Eos % (Auto) (0.0-4.3) % Loup # (0.0-0.8) K/mm3 D-Dimer (0-234) ng/mlDDU ABG pO2 69.8 L (80.0-90.0) mm Hg ABG HCO3 31.8 H (20.0-26.0) mmol/L ABG Base Excess 5.4 H (-2.0-3.0) mmol/L ABG Hemoglobin 10.0 L (14.0-18.0) gm/dl Oxyhemoglobin 92.9 L (95.0-99.0) % Sodium (137-145) mmol/L Chloride (98-107) mmol/L Carbon Dioxide (22-30) mmol/L BUN (9-20) mg/dL Glucose 314 H (75-100) mg/dL POC Glucose (70-105) Lactate Dehydrogenase 236 H (91-180) units/L Total Creatine Kinase (55-170) units/L C-Reactive Protein 8.40 H (0.00-1.30) mg/dL Albumin (3.9-5) g/dL Digoxin (0.9-2.0) ng/mL Salicylates (2.8-20.0) mg/dL Acetaminophen < 5.0 L (10.0-30.0) ug/mL 12/18/19 Range/Units 16:35 Hgb (11.8-15.2) gm/dl Hct (35.5-45.6) % MCH (28-32) pg MCHC (32-34) % RDW (13.2-15.2) % Loup % (Auto) (0.0-7.3) % Eos % (Auto) (0.0-4.3) % Loup # (0.0-0.8) K/mm3 D-Dimer (0-234) ng/mlDDU ABG pO2 (80.0-90.0) mm Hg ABG HCO3 (20.0-26.0) mmol/L ABG Base Excess (-2.0-3.0) mmol/L ABG Hemoglobin (14.0-18.0) gm/dl Oxyhemoglobin (95.0-99.0) % Sodium (137-145) mmol/L Chloride (98-107) mmol/L Carbon Dioxide (22-30) mmol/L BUN (9-20) mg/dL Glucose (75-100) mg/dL POC Glucose 310 H (70-105) Lactate Dehydrogenase (91-180) units/L Total Creatine Kinase (55-170) units/L C-Reactive Protein (0.00-1.30) mg/dL Albumin (3.9-5) g/dL Digoxin (0.9-2.0) ng/mL Salicylates (2.8-20.0) mg/dL Acetaminophen (10.0-30.0) ug/mL Assessment and Plan Cultures: Blood culture 12/18/2019 pending A/P: 59-year-old male past medical history diastolic CHF, OHS, HTN, DM 2, hypothyroidism #Acute hypoxic respiratory failure: Concern for COVID-19, agree with testing. If patient being positive, likely will be a candidate for Remdesivir and possibly Actemra. Continue empiric antibiotics for now, obtain procalcitonin. #Diabetes: Tight glycemic control. #Multiple chronic comorbidities: High risk for poor COVID-19 outcome positive Recs: -Continue COVID-19 isolation precautions -Collect and follow-up COVID-19 testing -Continue empiric ceftriaxone for now -Obtain procalcitonin and morning labs -We will follow with further recommendations for Remdesivir or Actemra when testing is resulted. Thank you for the consult, we will continue to follow. Sabrina Pinzon MD [facility], [place], [facility]ated [facility] ([facility]) M: [phone] O: [phone] F: [phone]
[2019-12-18] MEDS ORDERED: HYDROCORTISONE SOD SUCC 100 MG/2 ML VIAL ONE (16:52)
[2019-12-18] MEDS: NORepinephrine/NS 4 MG-250 ML 4 MG/250 ML BAG IV SCH ×2 (17:47→22:58)
[2019-12-18] MEDS ORDERED: IPRATROPIUM/ALBUTEROL SULFATE 3 ML AMPUL.NEB IH ONE (21:26)
[2019-12-18] MEDS: carvediloL 6.25 MG TAB PO SCH (22:50)
[2019-12-18] MEDS: DESMOPRESSIN 0.1 MG TAB PO SCH (22:50)
[2019-12-18] MEDS: HEPARIN 5,000 UNIT/1 ML VIAL SUB-Q SCH (22:56)
--- NOTE | 2019-12-19 03:20 | Consultation ---
PULMONARY CRITICAL CARE CONSULTATION NOTE CONSULTING PHYSICIAN: Dr. Amado García. REASON FOR CONSULTATION: Acute hypoxemic respiratory failure, on mechanical ventilatory support and acute encephalopathy. CHIEF COMPLAINT AND HISTORY OF PRESENT ILLNESS: As follows: The patient is a now 59-year-old male known to me actually from our prior admission in May of last year. He came into the Emergency Room today with an acute metabolic encephalopathy and he was bradycardic. He had been complaining of weakness and trouble breathing. He had a normal blood glucose checked in the field. There was no family or friends to give further information. He was hypoxemic in the field with O2 sats at 70%. Upon arrival to the Emergency Room, he was on 4 liters nasal cannula, but O2 sats were only about 83-85%. He was near obtunded, was not answering questions. He was drooling and he was emergently intubated for airway protection and to assist with ventilation. Post intubation, we were asked to assist with management. When I stopped by to see him, he remained on the mechanical ventilator. He was on Ativan drip at 1 mg per hour at that time. He was not following any commands. He did have some spontaneous movements to his extremities. I do not have any history of vomiting or overt aspiration. His tobacco use/abuse history as far as I can tell from prior admission, he had denied tobacco use and he was described as a care home patient at that time. This really is as much of the history of presentation as I have. PAST MEDICAL HISTORY: Again, significant for COPD, obstructive sleep apnea, diabetes, obesity and a history of CHF. PAST SURGICAL HISTORY: Unknown. MEDICATIONS: He was on at the time I stopped by to see him were reviewed, pertinent medications include the following: DuoNeb nebulizer treatments 1 ampule inhaled 3 times daily, aspirin 81 mg p.o. daily, all p.o. meds via the feeding tube, Coreg 6.25 mg p.o. b.i.d., desmopressin 0.2 mg p.o. b.i.d., digoxin 0.125 mg p.o. daily, Pepcid 20 mg p.o. daily, fentanyl drip had been ordered to begin at 1 mcg/kg per hour, Lasix 40 mg p.o. daily, insulin via sliding scale, Synthroid 88 mcg p.o. daily, a couple of non-formulary medications, potassium chloride 20 mEq p.o. daily. He had also received 2 grams of Rocephin. ALLERGIES: Unknown. DIET: Obese gentleman, acute weight loss or gain history is unknown. FAMILY AND SOCIAL HISTORY: As far as I can tell, he appeared to be a care home resident last time I have seen him, he described as a never smoker in the records. Alcohol, illicit drug use or abuse history is unknown. Family history is otherwise unknown. REVIEW OF SYSTEMS: Unobtainable secondary to patient's medical and mental condition. Since he has been here, no gross hematochezia or melena, no gross hematuria, no hematemesis, no bloody tracheal secretions, no witnessed seizures. Review of systems is otherwise unobtainable or as in the body of history above. PHYSICAL EXAMINATION: VITAL SIGNS: On examination at presentation, he was febrile, temperature 100.7 degrees Fahrenheit with a pulse of 100, respiratory rate 16 at that time and blood pressure 105/60, O2 sats were 98%, inspired oxygen concentration at that time was not recorded. When I stopped by to see him, his O2 sats were 96% that was on assist control, PRVC mode of ventilation with a set rate of 16, tidal volume, I believe 450 and PEEP of 5 and 50% FiO2 at that time. GENERAL: He is a middle-aged obese -Malagasy male. Normocephalic, atraumatic, intubated on the mechanical ventilation, riding ____ the set rate without significant patient ventilator dyssynchrony. HEAD, EYES, EARS, NOSE AND THROAT: He was anicteric, no conjunctival erythema. Oropharynx was moist. ET tube was taped at the lips around 23-24 cm. No gross jugular venous distention. He does have a large neck circumference. No thyromegaly. NECK: Grossly, there were no palpable lymph nodes in the supraclavicular or submandibular lymph node chains. LUNGS: Auscultation of both lung peña significant for diminished bilateral breath sounds, but really clear otherwise. Slightly prolonged expiratory phase. HEART: Heart sounds 1 and 2 are heard, regular rate and rhythm at time of my evaluation without overt rubs or murmurs. ABDOMEN: Soft, full, protuberant. Bowel sounds are positive, nontender, no palpable hepatosplenomegaly. EXTREMITIES: Without overt digital clubbing, no cyanosis, no pedal edema. He has 2+ bipedal pulses palpable. NEUROLOGIC: Pupils are equal, round, about 2 mm, sluggishly reactive to light. Extraocular muscle movements could not be assessed. He had spontaneous movements to all extremities. SKIN: Poor turgor in the areas examined, however, without overt cellulitis or rash. Please see the wound care nurse's notes for full description of the skin. PSYCHIATRIC: Mood and affect were flat. LABORATORY DATA: From my review are as follows: Really blood glucose level was about the only lab that I had 328, still awaiting other laboratory studies. A CT of the head was done and I have reviewed the radiologist's interpretation. Essentially, it is described as no acute focal parenchymal lesion in the brain. A chest x-ray was also done essentially area in the right mid lung zones of likely atelectasis that compared to 06/04, last year was not there. He also has ET tube with the tip at the lower level of the clavicular head. No pneumothorax that I could see. The CT scan of his chest was also done. The mediastinal peña did not show any gross mediastinal adenopathy. Some suggestion of small bilateral layering effusions. Left lower lobe predominant atelectasis, really just a ____, a lot of artifact. The lung windows show dependent, mostly atelectasis, patchy infiltrates, mild consolidative change in the left lower lobe region. They also described left supraclavicular and lower cervical chain lymph nodes. ASSESSMENT: Acute Hypoxemic Respiratory Failure Bilateral Pneumonia PUI COVID-19 Morbid Obesity H/O CHF JOE I will be awaiting further chemistries and further testing to come back. I will be ordering amongst other things, inflammatory markers as part of the management of the COVID-19. Ferritin levels, D-dimer levels will be ordered. I will also get a lactic acid level, procalcitonin level, CRP level to aid clinical decision making. Empiric community-acquired pneumonia therapy with Rocephin and Zithromax will be instituted. Electrolytes will be ordered and corrected as necessary. Oxygen will be weaned to keep sats greater than or equal to about 90%. I will change the sedation and I have asked the nurse to switch over to fentanyl from Ativan just to avoid the risk of complication of this overall infection with delirium. Enteral nutrition will be the feeding modality of choice. Aspiration precautions, ventilator-associated pneumonia bundle has been instituted. No clinical suggestion of venous thromboembolic event at this point. Empiric anti-infectives will be continued ____ based on results of clinical and microbiologic data as well as his any ID consultation that may be placed. Flu and pneumonia vaccination will be addressed per protocol. He will be on GI and DVT prophylaxis while on mechanical ventilator. Glycemic control will be via sliding scale insulin for target blood glucose of 140-180 mg/dL while critically ill. Thank you very much for the consult. We will follow along and make further recommendations as picture progresses/becomes clearer. I should mention he does have a left IJ central line in place without significant bleeding around the stoma. He is critically ill at high risk of from cardiopulmonary system decompensation. At this time, I spent about 35-40 minutes of critical care time without overlap and excluding any procedural time that may be necessary. I will be reevaluating him shortly to ensure that we address his chemistries and any other findings. JOB# [id number] MARGIE/SAROJ LUNA
--- NOTE | 2019-12-19 05:03 | XRay Report ---
CHEST 1 VIEW 12/19/2019 4:29 AM INDICATION / CLINICAL INFORMATION: follow up respiratory failure. COMPARISON: Chest x-ray 12/18/2019 FINDINGS: SUPPORT DEVICES: Lines and tubes again project in expected position. HEART / MEDIASTINUM: Cardiac silhouette is moderately enlarged for AP technique. LUNGS / PLEURA: Bilateral lower lobe airspace consolidation characteristic for bronchopneumonia, unch anged. No pneumothorax. ADDITIONAL FINDINGS: No significant additional findings. IMPRESSION: 1. Bilateral lower lobe bronchopneumonia, unchanged. Signer Name: Richard Amaro MD Signed: 12/19/2019 4:58 AM Workstation Name: [id number]
[2019-12-19 05:21] LABS: Basophils # (Auto) 0.1 K/mm3 (0.0-0.1); Basophils % (Auto) 0.6 % (0.0-1.8); Eosinophils # (Auto) 0.3 K/mm3 (0.0-0.4); Eosinophils % (Auto) 3.1 % (0.0-4.3); Lymphocytes # (Auto) 1.5 K/mm3 (1.2-5.4); Lymphocytes % (Auto) 14.4 % (13.4-35.0); Mean Corpuscular HGB Conc 29 % (32-34); Mean Corpuscular Volume 85 fl (84-94); Monocytes # (Auto) 1.1 K/mm3 (0.0-0.8); Monocytes % (Auto) 10.1 % (0.0-7.3); Platelet Count 236 K/mm3 (140-440); Red Blood Count 4.04 M/mm3 (3.65-5.03)
[2019-12-19 05:24] LABS: Alanine Aminotransferase 61 units/L (7-56); BUN/Creatinine Ratio 22; Blood Urea Nitrogen 26 mg/dL (9-20); Calcium 7.9 mg/dL (8.4-10.2); Hemolysis Index 0
[2019-12-19 05:27] LABS: Hematocrit 34.2 % (35.5-45.6)
[2019-12-19 06:23] LABS: ABG Base Excess 2.1 mmol/L (-2.0-3.0); ABG HCO3 27.8 mmol/L (20.0-26.0); ABG Methemoglobin 0.3 % (0.0-1.5); ABG Oxygen Saturation 99.1 % (95.0-99.0); ABG PH 7.38 pH Units (7.350-7.450); ABG PO2 186.5 mm Hg (80.0-90.0)
[2019-12-19] MEDS: fentaNYL DRIP Premix 2,000 MCG/100 ML BAG IV SCH ×2 (06:27→21:10)
[2019-12-19] MEDS: LEVOTHYROXINE 88 MCG TAB PO SCH (06:50)
[2019-12-19] MEDS: IPRATROPIUM/ALBUTEROL SULFATE 3 ML AMPUL.NEB IH SCH ×3 (07:31→19:37)
[2019-12-19] MEDS ORDERED: SODIUM BICARBONATE 325 MG TAB FEEDTUBE PRN (08:29)
[2019-12-19] MEDS ORDERED: LIPASE 10,500/PROTEASE 25,000/AMYLASE 43,750 (UNITS) DR CAP FEEDTUBE PRN (08:29)
[2019-12-19] MEDS ORDERED: SIMPLE SYRUP 15 ML FEEDTUBE PRN ×2 (08:29)
[2019-12-19] MEDS: INSULIN LISPRO 100 UNIT/ML SUB-Q SCH ×4 (08:47→23:02)
[2019-12-19] MEDS: NORepinephrine/NS 4 MG-250 ML 4 MG/250 ML BAG IV SCH ×2 (09:17→20:05)
[2019-12-19] MEDS ORDERED: FUROSEMIDE 40 MG TAB PO SCH (10:00)
[2019-12-19] MEDS ORDERED: FOLIC ACID PO SCH (10:00)
[2019-12-19] MEDS ORDERED: FAMOTIDINE 20 MG TAB PO SCH (10:00)
[2019-12-19] MEDS ORDERED: POTASSIUM CHLORIDE ER 20 MEQ TAB PO SCH (10:00)
--- NOTE | 2019-12-19 12:13 | Progress Note ---
Assessment and Plan / Acute hypoxic respiratory failure Likely from bilateral pneumonia and diastolic heart failure Patient intubated, placed on ventilatory support. Wean vent as tolerated, sedation holiday, daily spontaneous breathing trials, scheduled nebs, pulse oximetry, critical care team consulted in ED. The high probability of a clinically significant, sudden or life threatening deterioration of the [cardiac, renal, neuro, pulmonary, infectious disease] system(s) required my full and direct attention, intervention and personal management. The aggregate critical care time was [95] minutes. This time is in addition to time spent performing reported procedures but includes the following: [x] Data Review and interpretation [x] Patient assessment and monitoring of vital signs [x] Documentation [x] Medication orders and management / Sepsis with shock cont IV antibiotic therapy, IV fluid resuscitation therapy, monitor urine output every shift, maintain mean arterial blood pressure greater than or equal to 65, IV pressor support. Wean off pressors as tolerated / Suspected 2018-nCoV infection -ruled out with negative test Initiate COVID-19 protocol: Infectious disease team consulted in ED, COVID-19 PCR ordered in ED. / Diastolic CHF Preserved EF based on prior echocardiogram Monitor weight strict I's/O, daily weight, monitor urine output every shift, submental oxygen, blood pressure control. / Diabetes type II Initiate tube feeding diet Sliding scale insulin, Accu-Chek, hypoglycemia protocol. / Hypothyroidism Synthroid therapy, supportive care. / Bilateral pneumonia Pneumonia protocol: IV antibiotic therapy, pulse oximetry, follow cultures / HTN (hypertension) -hold BP meds as patient is hypertensive Monitor blood pressure every shift, continue medical management. /History of obstructive sleep apnea -Patient currently on mechanical ventilation / DVT prophylaxis SCD to bilateral lower extremities while in bed, prophylactic heparin 12/19/19: Negative for COVID-19, continue pressor and wean off as tolerated, continue IV antibiotic and follow cultures. Brief history: 59-year-old male past medical history diastolic CHF, OHS, HTN, DM 2, hypothyroidism admitted with confusion after being found by a neighbor. On arrival patient was found to be lethargic, and in respiratory distress and hypoxic. Patient was intubated in the ER because of hypoxic respiratory failure. Also noted to be hypotensive, placed on pressor admitted to ICU Chest x-ray: Left lower lobe airspace disease Physical exam: GENERAL: well-developed obese white male lying on bed appeared to be in no discomfort. Patient is intubated and sedated HEENT: Normocephalic. Atraumatic. No conjunctival congestion or icterus. Patient has moist mucous membranes. NECK: Supple. Trachea midline. CHEST/LUNGS: Coarse breath sound auscultated bilaterally, on mechanical ventilation HEART/CARDIOVASCULAR: Regular in rate and rhythm. S1 and S2 positive. ABDOMEN: Abdomen is soft, nontender. Patient has normal bowel sounds. SKIN: There is no rash. Warm and dry. NEURO: Does not follow command, patient on sedation MUSCULOSKELETAL: No joint effusion or tenderness. EXTRIMITY: No edema, no cyanosis or clubbing. PSYCH: On sedation Subjective Date of service: 12/19/19 Interval history: patient seen and examined. Medical records and medication list reviewed. No acute event overnight noted by the RN. Patient remains on pressor and intubated Discussed plan of care at bedside with patient's RN. Objective - Constitutional Vitals: Vital Signs - 12hr 12/19/19 12/19/19 12/19/19 00:50 02:00 03:02 Temperature Pulse Rate 53 L 58 L Pulse Rate [ Bilateral] Respiratory 25 H 16 19 Rate Respiratory Rate [Bilateral ] Blood Pressure O2 Sat by Pulse 100 100 100 Oximetry 12/19/19 12/19/19 12/19/19 03:10 03:20 03:30 Temperature Pulse Rate 53 L 55 L 51 L Pulse Rate [ Bilateral] Respiratory 20 16 16 Rate Respiratory Rate [Bilateral ] Blood Pressure 106/63 106/63 O2 Sat by Pulse 100 100 100 Oximetry 12/19/19 12/19/19 12/19/19 03:40 03:50 04:00 Temperature 97.4 F L Pulse Rate 53 L 51 L 66 Pulse Rate [ Bilateral] Respiratory 16 16 16 Rate Respiratory Rate [Bilateral ] Blood Pressure 107/62 105/58 107/62 O2 Sat by Pulse 100 100 100 Oximetry 12/19/19 12/19/19 12/19/19 04:10 04:20 04:30 Temperature Pulse Rate 54 L 53 L 61 Pulse Rate [ Bilateral] Respiratory 17 17 16 Rate Respiratory Rate [Bilateral ] Blood Pressure 101/53 109/61 109/61 O2 Sat by Pulse 100 100 100 Oximetry 12/19/19 12/19/19 12/19/19 04:40 04:50 05:00 Temperature Pulse Rate 57 L 59 L 56 L Pulse Rate [ Bilateral] Respiratory 16 17 16 Rate Respiratory Rate [Bilateral ] Blood Pressure 109/61 109/58 109/58 O2 Sat by Pulse 100 100 100 Oximetry 12/19/19 12/19/19 12/19/19 05:10 05:20 05:30 Temperature Pulse Rate 53 L 54 L 54 L Pulse Rate [ Bilateral] Respiratory 16 16 16 Rate Respiratory Rate [Bilateral ] Blood Pressure 109/58 116/61 116/61 O2 Sat by Pulse 100 100 100 Oximetry 12/19/19 12/19/19 12/19/19 05:40 05:50 05:53 Temperature Pulse Rate 52 L 55 L 54 L Pulse Rate [ Bilateral] Respiratory 16 16 Rate Respiratory Rate [Bilateral ] Blood Pressure 116/61 113/64 113/64 O2 Sat by Pulse 100 100 100 Oximetry 12/19/19 12/19/19 12/19/19 06:00 06:10 06:20 Temperature Pulse Rate 62 64 79 Pulse Rate [ Bilateral] Respiratory 16 16 21 Rate Respiratory Rate [Bilateral ] Blood Pressure 113/64 110/76 124/63 O2 Sat by Pulse 100 100 100 Oximetry 12/19/19 12/19/19 12/19/19 06:30 06:40 06:50 Temperature Pulse Rate 60 74 61 Pulse Rate [ Bilateral] Respiratory 17 17 17 Rate Respiratory Rate [Bilateral ] Blood Pressure 129/75 129/75 117/67 O2 Sat by Pulse 98 98 99 Oximetry 12/19/19 12/19/19 12/19/19 07:00 07:10 07:20 Temperature Pulse Rate 80 57 L 61 Pulse Rate [ Bilateral] Respiratory 17 16 16 Rate Respiratory Rate [Bilateral ] Blood Pressure 117/67 117/67 117/67 O2 Sat by Pulse 99 99 100 Oximetry 12/19/19 12/19/19 12/19/19 07:30 07:31 07:40 Temperature Pulse Rate 61 63 87 Pulse Rate [ 61 Bilateral] Respiratory 16 16 Rate Respiratory 16 Rate [Bilateral ] Blood Pressure 117/67 102/73 125/54 O2 Sat by Pulse 99 96 95 Oximetry 12/19/19 12/19/19 12/19/19 07:50 08:00 08:11 Temperature Pulse Rate 69 68 56 L Pulse Rate [ Bilateral] Respiratory 17 20 18 Rate Respiratory Rate [Bilateral ] Blood Pressure 138/60 138/60 O2 Sat by Pulse 98 97 94 Oximetry 12/19/19 12/19/19 12/19/19 08:21 08:31 08:41 Temperature Pulse Rate 65 73 84 Pulse Rate [ Bilateral] Respiratory 16 16 15 Rate Respiratory Rate [Bilateral ] Blood Pressure 124/75 115/67 115/67 O2 Sat by Pulse 96 96 95 Oximetry 12/19/19 12/19/19 12/19/19 08:51 09:01 09:11 Temperature Pulse Rate 97 H 95 H 96 H Pulse Rate [ Bilateral] Respiratory 16 16 16 Rate Respiratory Rate [Bilateral ] Blood Pressure 107/68 108/58 108/58 O2 Sat by Pulse 95 93 94 Oximetry 12/19/19 12/19/19 12/19/19 09:21 09:31 09:41 Temperature Pulse Rate 96 H 93 H 90 Pulse Rate [ Bilateral] Respiratory 14 16 16 Rate Respiratory Rate [Bilateral ] Blood Pressure 102/56 98/50 98/50 O2 Sat by Pulse 93 94 94 Oximetry 12/19/19 12/19/19 12/19/19 09:51 10:01 10:11 Temperature Pulse Rate 90 88 89 Pulse Rate [ Bilateral] Respiratory 16 16 16 Rate Respiratory Rate [Bilateral ] Blood Pressure 94/52 93/49 93/49 O2 Sat by Pulse 95 95 95 Oximetry 12/19/19 12/19/19 12/19/19 10:21 10:31 10:41 Temperature Pulse Rate 86 85 83 Pulse Rate [ Bilateral] Respiratory 14 15 18 Rate Respiratory Rate [Bilateral ] Blood Pressure 96/53 92/49 92/49 O2 Sat by Pulse 96 94 95 Oximetry 12/19/19 12/19/19 12/19/19 10:51 11:01 11:11 Temperature Pulse Rate 82 81 80 Pulse Rate [ Bilateral] Respiratory 15 15 17 Rate Respiratory Rate [Bilateral ] Blood Pressure 93/47 91/46 91/46 O2 Sat by Pulse 95 95 95 Oximetry 12/19/19 12/19/19 12/19/19 11:21 11:31 11:41 Temperature Pulse Rate 78 78 86 Pulse Rate [ Bilateral] Respiratory 16 15 21 Rate Respiratory Rate [Bilateral ] Blood Pressure 86/53 92/52 92/52 O2 Sat by Pulse 95 95 94 Oximetry 12/19/19 11:51 Temperature Pulse Rate 79 Pulse Rate [ Bilateral] Respiratory 14 Rate Respiratory Rate [Bilateral ] Blood Pressure 86/53 O2 Sat by Pulse 95 Oximetry - Labs CBC & Chem 7: 12/22/19 05:15 12/22/19 05:15 Labs: Abnormal lab results 12/18/19 12/18/19 12/18/19 Range/Units 14:45 14:45 14:45 Hgb 10.4 L (11.8-15.2) gm/dl Hct 35.2 L (35.5-45.6) % MCH 25 L (28-32) pg MCHC 30 L (32-34) % RDW 18.8 H (13.2-15.2) % [place] % (Auto) 11.6 H (0.0-7.3) % Eos % (Auto) 4.8 H (0.0-4.3) % [place] # 1.0 H (0.0-0.8) K/mm3 Seg Neutrophils % (40.0-70.0) % D-Dimer 534.45 H (0-234) ng/mlDDU ABG pO2 (80.0-90.0) mm Hg ABG HCO3 (20.0-26.0) mmol/L ABG O2 Saturation (95.0-99.0) % ABG Base Excess (-2.0-3.0) mmol/L ABG Hemoglobin (14.0-18.0) gm/dl Oxyhemoglobin (95.0-99.0) % Sodium (137-145) mmol/L Chloride (98-107) mmol/L Carbon Dioxide (22-30) mmol/L BUN (9-20) mg/dL Glucose (75-100) mg/dL POC Glucose (70-105) Lactic Acid (0.7-2.0) mmol/L Calcium (8.4-10.2) mg/dL AST (5-40) units/L ALT (7-56) units/L Lactate Dehydrogenase (91-180) units/L Total Creatine Kinase 40 L (55-170) units/L C-Reactive Protein (0.00-1.30) mg/dL Albumin (3.9-5) g/dL Digoxin (0.9-2.0) ng/mL Salicylates (2.8-20.0) mg/dL Acetaminophen (10.0-30.0) ug/mL 12/18/19 12/18/19 12/18/19 Range/Units 14:45 14:45 14:45 Hgb (11.8-15.2) gm/dl Hct (35.5-45.6) % MCH (28-32) pg MCHC (32-34) % RDW (13.2-15.2) % [place] % (Auto) (0.0-7.3) % Eos % (Auto) (0.0-4.3) % [place] # (0.0-0.8) K/mm3 Seg Neutrophils % (40.0-70.0) % D-Dimer (0-234) ng/mlDDU ABG pO2 (80.0-90.0) mm Hg ABG HCO3 (20.0-26.0) mmol/L ABG O2 Saturation (95.0-99.0) % ABG Base Excess (-2.0-3.0) mmol/L ABG Hemoglobin (14.0-18.0) gm/dl Oxyhemoglobin (95.0-99.0) % Sodium 156 H (137-145) mmol/L Chloride 112.3 H (98-107) mmol/L Carbon Dioxide 31 H (22-30) mmol/L BUN 32 H (9-20) mg/dL Glucose 328 H (75-100) mg/dL POC Glucose (70-105) Lactic Acid (0.7-2.0) mmol/L Calcium (8.4-10.2) mg/dL AST (5-40) units/L ALT (7-56) units/L Lactate Dehydrogenase 235 H (91-180) units/L Total Creatine Kinase (55-170) units/L C-Reactive Protein 8.50 H (0.00-1.30) mg/dL Albumin 3.6 L (3.9-5) g/dL Digoxin 0.3 L (0.9-2.0) ng/mL Salicylates < 0.3 L (2.8-20.0) mg/dL Acetaminophen < 5.0 L (10.0-30.0) ug/mL 12/18/19 12/18/19 12/18/19 Range/Units 14:45 16:00 16:35 Hgb (11.8-15.2) gm/dl Hct (35.5-45.6) % MCH (28-32) pg MCHC (32-34) % RDW (13.2-15.2) % [place] % (Auto) (0.0-7.3) % Eos % (Auto) (0.0-4.3) % [place] # (0.0-0.8) K/mm3 Seg Neutrophils % (40.0-70.0) % D-Dimer (0-234) ng/mlDDU ABG pO2 69.8 L (80.0-90.0) mm Hg ABG HCO3 31.8 H (20.0-26.0) mmol/L ABG O2 Saturation (95.0-99.0) % ABG Base Excess 5.4 H (-2.0-3.0) mmol/L ABG Hemoglobin 10.0 L (14.0-18.0) gm/dl Oxyhemoglobin 92.9 L (95.0-99.0) % Sodium (137-145) mmol/L Chloride (98-107) mmol/L Carbon Dioxide (22-30) mmol/L BUN (9-20) mg/dL Glucose 314 H (75-100) mg/dL POC Glucose 310 H (70-105) Lactic Acid (0.7-2.0) mmol/L Calcium (8.4-10.2) mg/dL AST (5-40) units/L ALT (7-56) units/L Lactate Dehydrogenase 236 H (91-180) units/L Total Creatine Kinase (55-170) units/L C-Reactive Protein 8.40 H (0.00-1.30) mg/dL Albumin (3.9-5) g/dL Digoxin (0.9-2.0) ng/mL Salicylates (2.8-20.0) mg/dL Acetaminophen (10.0-30.0) ug/mL 12/18/19 12/18/19 12/19/19 Range/Units 18:30 22:56 04:13 Hgb 10.0 L (11.8-15.2) gm/dl Hct 34.2 L (35.5-45.6) % MCH 25 L (28-32) pg MCHC 29 L (32-34) % RDW 19.0 H (13.2-15.2) % [place] % (Auto) 10.1 H (0.0-7.3) % Eos % (Auto) (0.0-4.3) % [place] # 1.1 H (0.0-0.8) K/mm3 Seg Neutrophils % 71.8 H (40.0-70.0) % D-Dimer (0-234) ng/mlDDU ABG pO2 (80.0-90.0) mm Hg ABG HCO3 (20.0-26.0) mmol/L ABG O2 Saturation (95.0-99.0) % ABG Base Excess (-2.0-3.0) mmol/L ABG Hemoglobin (14.0-18.0) gm/dl Oxyhemoglobin (95.0-99.0) % Sodium (137-145) mmol/L Chloride (98-107) mmol/L Carbon Dioxide (22-30) mmol/L BUN (9-20) mg/dL Glucose (75-100) mg/dL POC Glucose 353 H (70-105) Lactic Acid 2.50 H* (0.7-2.0) mmol/L Calcium (8.4-10.2) mg/dL AST (5-40) units/L ALT (7-56) units/L Lactate Dehydrogenase (91-180) units/L Total Creatine Kinase (55-170) units/L C-Reactive Protein (0.00-1.30) mg/dL Albumin (3.9-5) g/dL Digoxin (0.9-2.0) ng/mL Salicylates (2.8-20.0) mg/dL Acetaminophen (10.0-30.0) ug/mL 12/19/19 12/19/19 Range/Units 04:13 06:00 Hgb (11.8-15.2) gm/dl Hct (35.5-45.6) % MCH (28-32) pg MCHC (32-34) % RDW (13.2-15.2) % [place] % (Auto) (0.0-7.3) % Eos % (Auto) (0.0-4.3) % [place] # (0.0-0.8) K/mm3 Seg Neutrophils % (40.0-70.0) % D-Dimer (0-234) ng/mlDDU ABG pO2 186.5 H (80.0-90.0) mm Hg ABG HCO3 27.8 H (20.0-26.0) mmol/L ABG O2 Saturation 99.1 H (95.0-99.0) % ABG Base Excess (-2.0-3.0) mmol/L ABG Hemoglobin 10.4 L (14.0-18.0) gm/dl Oxyhemoglobin (95.0-99.0) % Sodium 157 H (137-145) mmol/L Chloride 119.1 H (98-107) mmol/L Carbon Dioxide (22-30) mmol/L BUN 26 H (9-20) mg/dL Glucose 302 H (75-100) mg/dL POC Glucose (70-105) Lactic Acid (0.7-2.0) mmol/L Calcium 7.9 L (8.4-10.2) mg/dL AST 85 H (5-40) units/L ALT 61 H (7-56) units/L Lactate Dehydrogenase (91-180) units/L Total Creatine Kinase (55-170) units/L C-Reactive Protein (0.00-1.30) mg/dL Albumin 3.0 L (3.9-5) g/dL Digoxin (0.9-2.0) ng/mL Salicylates (2.8-20.0) mg/dL Acetaminophen (10.0-30.0) ug/mL HEART Score - HEART Score Troponin: Troponin T 0.011 ng/mL (0.00-0.029) 12/18/19 14:45
[2019-12-19] MEDS: DIGOXIN 0.125 MG TAB PO SCH (12:32)
[2019-12-19] MEDS: FOLIC ACID 1 MG TAB PO SCH (12:32)
[2019-12-19] MEDS: POTASSIUM CHLORIDE 20 MEQ PACKET FEEDTUBE SCH (12:33)
[2019-12-19] MEDS: ASPIRIN 81 MG TAB CHEW PO SCH (12:33)
[2019-12-19] MEDS: DESMOPRESSIN 0.1 MG TAB PO SCH ×2 (12:34→21:42)
[2019-12-19] MEDS: HEPARIN 5,000 UNIT/1 ML VIAL SUB-Q SCH ×2 (12:34→21:39)
[2019-12-19] MEDS: cefTRIAXone/NS 2 GM/100 ML 2 GM/100 ML BAG IV SCH (12:34)
[2019-12-19] MEDS: carvediloL 6.25 MG TAB PO SCH ×2 (12:36→21:42)
--- NOTE | 2019-12-19 14:37 | Progress Note ---
Assessment and Plan Acute Hypoxemic Respiratory Failure Severe Sepsis with Shock Bilateral Pneumonia PUI COVID-19 Morbid Obesity H/O CHF JOE - get KUB and address - free water fore hypernatremia - possible Remdesivir, Actemra dosing if repeat testing positive - continue airborne and contact precautions - follow repeat COVID-19 testing - wean vasopressors for target MAP >? 65 mmHg - continue Daily SAT and SBT assessment as tolerated - continue to wean supplemental oxygen for target O2 sat's > 90% acutely - VAP bundle addressed - continue lung protective strategies - continue bronchodilators with pulmonary hygiene per RT - wean per pulmonary driven protocols otherwise - continue accuchecks with glycemic control per SSI (While critically ill target blood glucose of 140-180 mg/dL; avoid hypoglycemia) - sedation prn for target RASS 0 to -1 - continue to avoid benzodiazepine's, reduce the possibility of delirium - completed AB's per ID rec's - prn analgesia per CPOT score - Maintenance of sleep-wake cycle, avoid delirium - enteral nutritional support at goal rate as tolerated - G.I. & VTE prophylaxis - PT/OT/ROM exercises - continue mobility protocols for pressure ulcer prophylaxis - Monitor hemodynamics closely - continue other care per attending / other consultants - discharge planning ongoing concurrently .... Re-evaluate in am & prn CONDITION: CRITICAL PROGNOSIS: GUARDED CODE STATUS: FULL CODE The high probability of a clinically significant, sudden or life-threatening deterioration of the [respiratory, cardiovascular, GI & neurologic] system(s) required my full and direct attention, intervention and personal management. The aggregate critical care time was [34] minutes without overlap. Time includes spent on; [x] Data Review and interpretation [x] Patient assessment and monitoring of vital signs [x] Documentation [x] Medication orders and management Subjective Date of service: 12/19/19 Principal diagnosis: Ac. Hypoxemic Resp Failure; Septic Shock; Magdiel. PNA; PUI COVID-19; CHF; JOE Interval history: Patient is seen today for: Acute Hypoxemic Respiratory Failure; Severe Sepsis with Shock; Bilateral Pneumonia; PUI COVID-19; Morbid Obesity; H/O CHF; JOE Seen and examined at bedside; 24hour events reviewed; nursing and respiratory care staff consulted; no adverse overnight events reported to me; resting peacefully in bed; sedated to RASS 0; denies adominal pain; abdomen is firm ; no N/V/F/C; remains on Levophed drip at 8 rylan's Objective Vital Signs - 12hr 12/19/19 12/19/19 12/19/19 03:02 03:10 03:20 Temperature Pulse Rate 58 L 53 L 55 L Pulse Rate [ Bilateral] Respiratory 19 20 16 Rate Respiratory Rate [Bilateral ] Blood Pressure 106/63 O2 Sat by Pulse 100 100 100 Oximetry 12/19/19 12/19/19 12/19/19 03:30 03:40 03:50 Temperature Pulse Rate 51 L 53 L 51 L Pulse Rate [ Bilateral] Respiratory 16 16 16 Rate Respiratory Rate [Bilateral ] Blood Pressure 106/63 107/62 105/58 O2 Sat by Pulse 100 100 100 Oximetry 12/19/19 12/19/19 12/19/19 04:00 04:10 04:20 Temperature 97.4 F L Pulse Rate 66 54 L 53 L Pulse Rate [ Bilateral] Respiratory 16 17 17 Rate Respiratory Rate [Bilateral ] Blood Pressure 107/62 101/53 109/61 O2 Sat by Pulse 100 100 100 Oximetry 12/19/19 12/19/19 12/19/19 04:30 04:40 04:50 Temperature Pulse Rate 61 57 L 59 L Pulse Rate [ Bilateral] Respiratory 16 16 17 Rate Respiratory Rate [Bilateral ] Blood Pressure 109/61 109/61 109/58 O2 Sat by Pulse 100 100 100 Oximetry 12/19/19 12/19/19 12/19/19 05:00 05:10 05:20 Temperature Pulse Rate 56 L 53 L 54 L Pulse Rate [ Bilateral] Respiratory 16 16 16 Rate Respiratory Rate [Bilateral ] Blood Pressure 109/58 109/58 116/61 O2 Sat by Pulse 100 100 100 Oximetry 12/19/19 12/19/19 12/19/19 05:30 05:40 05:50 Temperature Pulse Rate 54 L 52 L 55 L Pulse Rate [ Bilateral] Respiratory 16 16 16 Rate Respiratory Rate [Bilateral ] Blood Pressure 116/61 116/61 113/64 O2 Sat by Pulse 100 100 100 Oximetry 12/19/19 12/19/19 12/19/19 05:53 06:00 06:10 Temperature Pulse Rate 54 L 62 64 Pulse Rate [ Bilateral] Respiratory 16 16 Rate Respiratory Rate [Bilateral ] Blood Pressure 113/64 113/64 110/76 O2 Sat by Pulse 100 100 100 Oximetry 12/19/19 12/19/1912/18/20 06:20 06:30 06:40 Temperature Pulse Rate 79 60 74 Pulse Rate [ Bilateral] Respiratory 21 17 17 Rate Respiratory Rate [Bilateral ] Blood Pressure 124/63 129/75 129/75 O2 Sat by Pulse 100 98 98 Oximetry 12/19/19 12/19/19 12/19/19 06:50 07:00 07:10 Temperature Pulse Rate 61 80 57 L Pulse Rate [ Bilateral] Respiratory 17 17 16 Rate Respiratory Rate [Bilateral ] Blood Pressure 117/67 117/67 117/67 O2 Sat by Pulse 99 99 99 Oximetry 12/19/19 12/19/19 12/19/19 07:20 07:30 07:31 Temperature Pulse Rate 61 61 63 Pulse Rate [ 61 Bilateral] Respiratory 16 16 Rate Respiratory 16 Rate [Bilateral ] Blood Pressure 117/67 117/67 102/73 O2 Sat by Pulse 100 99 96 Oximetry 12/19/19 12/19/19 12/19/19 07:40 07:50 08:00 Temperature Pulse Rate 87 69 68 Pulse Rate [ Bilateral] Respiratory 16 17 20 Rate Respiratory Rate [Bilateral ] Blood Pressure 125/54 138/60 138/60 O2 Sat by Pulse 95 98 97 Oximetry 12/19/19 12/19/19 12/19/19 08:11 08:21 08:31 Temperature Pulse Rate 56 L 65 73 Pulse Rate [ Bilateral] Respiratory 18 16 16 Rate Respiratory Rate [Bilateral ] Blood Pressure 124/75 115/67 O2 Sat by Pulse 94 96 96 Oximetry 12/19/19 12/19/19 12/19/19 08:41 08:51 09:01 Temperature Pulse Rate 84 97 H 95 H Pulse Rate [ Bilateral] Respiratory 15 16 16 Rate Respiratory Rate [Bilateral ] Blood Pressure 115/67 107/68 108/58 O2 Sat by Pulse 95 95 93 Oximetry 12/19/19 12/19/19 12/19/19 09:11 09:21 09:31 Temperature Pulse Rate 96 H 96 H 93 H Pulse Rate [ Bilateral] Respiratory 16 14 16 Rate Respiratory Rate [Bilateral ] Blood Pressure 108/58 102/56 98/50 O2 Sat by Pulse 94 93 94 Oximetry 12/19/19 12/19/19 12/19/19 09:41 09:51 10:01 Temperature Pulse Rate 90 90 88 Pulse Rate [ Bilateral] Respiratory 16 16 16 Rate Respiratory Rate [Bilateral ] Blood Pressure 98/50 94/52 93/49 O2 Sat by Pulse 94 95 95 Oximetry 12/19/19 12/19/19 12/19/19 10:11 10:21 10:31 Temperature Pulse Rate 89 86 85 Pulse Rate [ Bilateral] Respiratory 16 14 15 Rate Respiratory Rate [Bilateral ] Blood Pressure 93/49 96/53 92/49 O2 Sat by Pulse 95 96 94 Oximetry 12/19/19 12/19/19 12/19/19 10:41 10:51 11:01 Temperature Pulse Rate 83 82 81 Pulse Rate [ Bilateral] Respiratory 18 15 15 Rate Respiratory Rate [Bilateral ] Blood Pressure 92/49 93/47 91/46 O2 Sat by Pulse 95 95 95 Oximetry 12/19/19 12/19/19 12/19/19 11:11 11:21 11:31 Temperature Pulse Rate 80 78 78 Pulse Rate [ Bilateral] Respiratory 17 16 15 Rate Respiratory Rate [Bilateral ] Blood Pressure 91/46 86/53 92/52 O2 Sat by Pulse 95 95 95 Oximetry 12/19/19 12/19/19 12/19/19 11:41 11:51 12:01 Temperature Pulse Rate 86 85 83 Pulse Rate [ Bilateral] Respiratory 21 14 19 Rate Respiratory Rate [Bilateral ] Blood Pressure 92/52 100/56 90/54 O2 Sat by Pulse 94 94 94 Oximetry 12/19/19 12/19/19 12/19/19 12:11 12:21 12:30 Temperature Pulse Rate 82 81 83 Pulse Rate [ Bilateral] Respiratory 21 18 18 Rate Respiratory Rate [Bilateral ] Blood Pressure 90/54 89/51 92/53 O2 Sat by Pulse 94 94 94 Oximetry 12/19/19 12:41 Temperature Pulse Rate 82 Pulse Rate [ Bilateral] Respiratory 19 Rate Respiratory Rate [Bilateral ] Blood Pressure 92/53 O2 Sat by Pulse 94 Oximetry Constitutional: appears uncomfortable, other (middle aged obese male with mildly increased resp effort at restr) Eyes: non-icteric ENT: oropharynx moist, other (ETT 24 cm KOLBY) Neck: supple, no lymphadenopathy, no JVD Effort: mildly labored Ascultation: Bilateral: diminished breath sounds, rhonchi Percussion: Bilateral: not dull Cardiovascular: regular rate and rhythm Gastrointestinal: hypoactive bowel sounds, soft, non-tender, other (distended) Integumentary: rash (stasis dermatyitis) Extremities: no cyanosis, pink and warm, pulses normal, no ischemia or petechiae, edema (trace) Neurologic: non-focal exam (grossly), pupils equal and round, motor strength normal and, other (sedated) Psychiatric: other (unable to assess; sedated) CBC and BMP: 12/19/19 04:13 12/19/19 04:13 ABG, PT/INR, D-dimer: ABG ABG pH 7.380 pH Units (7.350-7.450) 12/19/19 06:00 ABG pCO2 48.0 mm Hg 12/19/19 06:00 ABG pO2 186.5 mm Hg (80.0-90.0) H 12/19/19 06:00 ABG O2 Saturation 99.1 % (95.0-99.0) H 12/19/19 06:00 PT/INR, D-dimer PT 14.0 Sec. (12.2-14.9) 12/18/19 14:45 INR 1.10 (0.87-1.13) 12/18/19 14:45 D-Dimer 534.45 ng/mlDDU (0-234) H 12/18/19 14:45 Abnormal lab findings: Abnormal Labs 12/18/19 12/18/19 12/18/19 12:23 14:45 14:45 Hgb 10.4 L Hct 35.2 L MCH 25 L MCHC 30 L RDW 18.8 H [place] % (Auto) 11.6 H Eos % (Auto) 4.8 H [place] # 1.0 H Seg Neutrophils % D-Dimer ABG pO2 ABG HCO3 ABG O2 Saturation ABG Base Excess ABG Hemoglobin Oxyhemoglobin Sodium Chloride Carbon Dioxide BUN Glucose POC Glucose 328 H Lactic Acid Calcium AST ALT Lactate Dehydrogenase Total Creatine Kinase 40 L C-Reactive Protein Albumin Digoxin Salicylates Acetaminophen 12/18/19 12/18/19 12/18/19 14:45 14:45 14:45 Hgb Hct MCH MCHC RDW [place] % (Auto) Eos % (Auto) [place] # Seg Neutrophils % D-Dimer 534.45 H ABG pO2 ABG HCO3 ABG O2 Saturation ABG Base Excess ABG Hemoglobin Oxyhemoglobin Sodium 156 H Chloride 112.3 H Carbon Dioxide 31 H BUN 32 H Glucose 328 H POC Glucose Lactic Acid Calcium AST ALT Lactate Dehydrogenase 235 H Total Creatine Kinase C-Reactive Protein 8.50 H Albumin 3.6 L Digoxin 0.3 L Salicylates < 0.3 L Acetaminophen 12/18/19 12/18/19 12/18/19 14:45 14:45 16:00 Hgb Hct MCH MCHC RDW [place] % (Auto) Eos % (Auto) [place] # Seg Neutrophils % D-Dimer ABG pO2 69.8 L ABG HCO3 31.8 H ABG O2 Saturation ABG Base Excess 5.4 H ABG Hemoglobin 10.0 L Oxyhemoglobin 92.9 L Sodium Chloride Carbon Dioxide BUN Glucose 314 H POC Glucose Lactic Acid Calcium AST ALT Lactate Dehydrogenase 236 H Total Creatine Kinase C-Reactive Protein 8.40 H Albumin Digoxin Salicylates Acetaminophen < 5.0 L 12/18/19 12/18/19 12/18/19 16:35 18:30 22:56 Hgb Hct MCH MCHC RDW [place] % (Auto) Eos % (Auto) [place] # Seg Neutrophils % D-Dimer ABG pO2 ABG HCO3 ABG O2 Saturation ABG Base Excess ABG Hemoglobin Oxyhemoglobin Sodium Chloride Carbon Dioxide BUN Glucose POC Glucose 310 H 353 H Lactic Acid 2.50 H* Calcium AST ALT Lactate Dehydrogenase Total Creatine Kinase C-Reactive Protein Albumin Digoxin Salicylates Acetaminophen 12/19/19 12/19/19 12/19/19 04:13 04:13 06:00 Hgb 10.0 L Hct 34.2 L MCH 25 L MCHC 29 L RDW 19.0 H [place] % (Auto) 10.1 H Eos % (Auto) [place] # 1.1 H Seg Neutrophils % 71.8 H D-Dimer ABG pO2 186.5 H ABG HCO3 27.8 H ABG O2 Saturation 99.1 H ABG Base Excess ABG Hemoglobin 10.4 L Oxyhemoglobin Sodium 157 H Chloride 119.1 H Carbon Dioxide BUN 26 H Glucose 302 H POC Glucose Lactic Acid Calcium 7.9 L AST 85 H ALT 61 H Lactate Dehydrogenase Total Creatine Kinase C-Reactive Protein Albumin 3.0 L Digoxin Salicylates Acetaminophen 12/19/19 12/19/19 08:30 11:55 Hgb Hct MCH MCHC RDW [place] % (Auto) Eos % (Auto) [place] # Seg Neutrophils % D-Dimer ABG pO2 ABG HCO3 ABG O2 Saturation ABG Base Excess ABG Hemoglobin Oxyhemoglobin Sodium Chloride Carbon Dioxide BUN Glucose POC Glucose 264 H 251 H Lactic Acid Calcium AST ALT Lactate Dehydrogenase Total Creatine Kinase C-Reactive Protein Albumin Digoxin Salicylates Acetaminophen Chest x-ray: image reviewed (bibasilar infiltrates) Allied health notes reviewed: nursing
--- NOTE | 2019-12-19 18:14 | XRay Report ---
ABDOMEN 2 VIEW(S) INDICATION / CLINICAL INFORMATION: abdominal distension. COMPARISON: None available. FINDINGS: TUBES / LINES: NG tube tip in the mid stomach region. BOWEL GAS PATTERN: No significant abnormality. FREE AIR / EXTRALUMINAL GAS: None seen. ADDITIONAL FINDINGS: No significant additional findings. IMPRESSION: 1. NGT as above. Signer Name: Martinez Cooper MD Signed: 12/19/2019 6:10 PM Workstation Name: [id number]
[2019-12-19 19:45] LABS: Bacteria,Urine 1+ /HPF (Negative); Bilirubin,Urine NEG (Negative); Blood,Urine NEG (Negative); Color,Urine Yellow (Yellow); Mucus,Urine FEW /HPF; Protein,Urine <15 mg/dL mg/dL (Negative); Urobilinogen,Urine < 2.0 mg/dL (<2.0)
[2019-12-19] MEDS: SODIUM CHLORIDE 0.45% 1000 ML 1,000 ML IV SCH (19:50)
[2019-12-20] MEDS: INSULIN LISPRO 100 UNIT/ML SUB-Q SCH ×4 (00:10→18:46)
[2019-12-20] MEDS: SODIUM CHLORIDE 0.45% 1000 ML 1,000 ML IV SCH ×2 (02:51→11:00)
--- NOTE | 2019-12-20 03:18 | XRay Report ---
CHEST 1 VIEW 12/20/2019 2:15 AM INDICATION / CLINICAL INFORMATION: follow up respiratory failure. COMPARISON: Chest x-ray 12/19/2019 FINDINGS: SUPPORT DEVICES: Lines and tubes again project in expected position. HEART / MEDIASTINUM: Cardiac silhouette remains enlarged. LUNGS / PLEURA: Small left pleural effusion and streaky bibasilar parenchymal disease, unchanged.. No pneumothorax. ADDITIONAL FINDINGS: No significant additional findings. IMPRESSION: 1. Bilateral lower lobe pneumonia, unchanged Signer Name: Richard Amaro MD Signed: 12/20/2019 3:13 AM Workstation Name: [id number]
[2019-12-20 04:51] LABS: ABG Base Excess 2.6 mmol/L (-2.0-3.0); ABG HCO3 27.7 mmol/L (20.0-26.0); ABG Methemoglobin 0.5 % (0.0-1.5); ABG Oxygen Saturation 96.9 % (95.0-99.0); ABG PH 7.407 pH Units (7.350-7.450); ABG PO2 85.7 mm Hg (80.0-90.0)
[2019-12-20 05:45] LABS: Basophils % (Auto) 0.6 % (0.0-1.8); Eosinophils # (Auto) 0.4 K/mm3 (0.0-0.4); Lymphocytes # (Auto) 0.9 K/mm3 (1.2-5.4); Lymphocytes % (Auto) 15.3 % (13.4-35.0); Mean Corpuscular HGB Conc 30 % (32-34); Mean Corpuscular Volume 84 fl (84-94); Monocytes # (Auto) 0.6 K/mm3 (0.0-0.8); Monocytes % (Auto) 10.2 % (0.0-7.3); Platelet Count 166 K/mm3 (140-440); Red Blood Count 3.72 M/mm3 (3.65-5.03); Red Cell Distribution Width 19.4 % (13.2-15.2)
[2019-12-20 05:48] LABS: Hematocrit 31.4 % (35.5-45.6); Hemoglobin 9.4 gm/dl (11.8-15.2)
[2019-12-20 06:03] LABS: BUN/Creatinine Ratio 18; Blood Urea Nitrogen 18 mg/dL (9-20); Calcium 7.9 mg/dL (8.4-10.2); Hemolysis Index 1
[2019-12-20] MEDS: LEVOTHYROXINE 88 MCG TAB PO SCH (06:05)
[2019-12-20] MEDS: IPRATROPIUM/ALBUTEROL SULFATE 3 ML AMPUL.NEB IH SCH ×3 (08:08→19:39)
[2019-12-20] MEDS: fentaNYL DRIP Premix 2,000 MCG/100 ML BAG IV SCH (09:54)
[2019-12-20] MEDS: FOLIC ACID 1 MG TAB PO SCH (09:55)
[2019-12-20] MEDS: carvediloL 6.25 MG TAB PO SCH ×2 (09:55→21:53)
[2019-12-20] MEDS: DIGOXIN 0.125 MG TAB PO SCH (09:56)
[2019-12-20] MEDS: HEPARIN 5,000 UNIT/1 ML VIAL SUB-Q SCH ×2 (09:56→21:54)
[2019-12-20] MEDS: FAMOTIDINE 20 MG TAB PO SCH ×2 (09:56→21:53)
[2019-12-20] MEDS: ASPIRIN 81 MG TAB CHEW PO SCH (09:57)
[2019-12-20] MEDS: DESMOPRESSIN 0.1 MG TAB PO SCH ×2 (09:57→21:55)
[2019-12-20] MEDS: cefTRIAXone/NS 2 GM/100 ML 2 GM/100 ML BAG IV SCH (09:58)
[2019-12-20] MEDS: POTASSIUM CHLORIDE 20 MEQ PACKET FEEDTUBE SCH (11:43)
--- NOTE | 2019-12-20 11:58 | Progress Note ---
Assessment and Plan Acute Hypoxemic Respiratory Failure Severe Sepsis with Shock Bilateral Pneumonia COVID-19 NEGATIVE Morbid Obesity H/O CHF JOE - wean vasopressors for target MAP > 65 mmHg, BLOOD PRESSURES ARE SOFT - continue Daily SAT and SBT assessment as tolerated -hold fentanyl fro PSV trials today - continue to wean supplemental oxygen for target O2 sat's > 90% acutely - VAP bundle addressed - continue lung protective strategies - continue bronchodilators with pulmonary hygiene per RT - wean per pulmonary driven protocols otherwise - continue accuchecks with glycemic control per SSI (While critically ill target blood glucose of 140-180 mg/dL; avoid hypoglycemia) - sedation prn for target RASS 0 to -1 - continue to avoid benzodiazepines, reduce the possibility of delirium - completed AB's per ID rec's ( currently on Rocephin) - prn analgesia per CPOT score - Maintenance of sleep-wake cycle, avoid delirium - enteral nutritional support at goal rate as tolerated ( OGT with Vital AF at 25ml, goal rate is 65) - G.I. & VTE prophylaxis - PT/OT/ROM exercises - continue mobility protocols for pressure ulcer prophylaxis - Monitor hemodynamics closely-episodes of asymptomatic bradycardia - continue other care per attending / other consultants - discharge planning ongoing concurrently CONDITION: CRITICAL PROGNOSIS: GUARDED CODE STATUS: FULL CODE The high probability of a clinically significant, sudden or life-threatening deterioration of the [respiratory, cardiovascular, GI & neurologic] system(s) required my full and direct attention, intervention and personal management. The aggregate critical care time was [31] minutes without overlap. Time includes spent on; [x] Data Review and interpretation [x] Patient assessment and monitoring of vital signs [x] Documentation [x] Medication orders and management Subjective Date of service: 12/20/19 Principal diagnosis: Ac. Hypoxemic Resp Failure; Septic Shock; Magdiel. PNA; PUI COVID-19; CHF; JOE Interval history: Patient is seen today for: Acute Hypoxemic Respiratory Failure; Severe Sepsis with Shock; Bilateral Pneumonia; Morbid Obesity; H/O CHF; JOE Seen and examined at bedside; 24hour events reviewed; nursing and respiratory care staff consulted; no adverse overnight events reported to me; resting peacefully in bed; on Fentanyl at 1mcg ; no N/V/F/C; off Levophed drip -stopped last night . Remains orally intubated Made 900cc of urine overnight Vent settings VC-AC 16/450/6/45% with acceptable oxygenation and acid-base on ABGs Objective Vital Signs - 12hr 12/20/19 12/20/19 12/20/19 00:00 00:15 00:30 Temperature 98.7 F Pulse Rate 74 78 78 Pulse Rate [ Bilateral] Pulse Rate [ 74 From Monitor] Respiratory 20 18 19 Rate Respiratory Rate [Bilateral ] Blood Pressure 111/66 114/69 119/71 O2 Sat by Pulse 99 98 99 Oximetry 12/20/19 12/20/19 12/20/19 00:45 01:01 01:15 Temperature Pulse Rate 80 76 70 Pulse Rate [ Bilateral] Pulse Rate [ From Monitor] Respiratory 18 16 23 Rate Respiratory Rate [Bilateral ] Blood Pressure 113/65 106/52 107/66 O2 Sat by Pulse 98 98 98 Oximetry 12/20/19 12/20/19 12/20/19 01:30 01:45 02:01 Temperature Pulse Rate 75 71 81 Pulse Rate [ Bilateral] Pulse Rate [ From Monitor] Respiratory 16 19 31 H Rate Respiratory Rate [Bilateral ] Blood Pressure 98/62 109/70 116/77 O2 Sat by Pulse 98 96 97 Oximetry 12/20/19 12/20/19 12/20/19 02:15 02:30 02:45 Temperature Pulse Rate 89 77 65 Pulse Rate [ Bilateral] Pulse Rate [ From Monitor] Respiratory 20 16 18 Rate Respiratory Rate [Bilateral ] Blood Pressure 111/80 105/66 116/57 O2 Sat by Pulse 97 98 98 Oximetry 12/20/19 12/20/19 12/20/19 03:00 03:15 03:30 Temperature Pulse Rate 72 86 72 Pulse Rate [ Bilateral] Pulse Rate [ From Monitor] Respiratory 19 17 24 Rate Respiratory Rate [Bilateral ] Blood Pressure 118/55 112/68 115/64 O2 Sat by Pulse 99 98 99 Oximetry 12/20/19 12/20/19 12/20/19 03:45 03:46 04:00 Temperature 97.0 F L Pulse Rate 68 69 72 Pulse Rate [ Bilateral] Pulse Rate [ 72 From Monitor] Respiratory 18 17 Rate Respiratory Rate [Bilateral ] Blood Pressure 108/64 108/64 101/56 O2 Sat by Pulse 99 99 99 Oximetry 12/20/19 12/20/19 12/20/19 04:15 04:30 04:45 Temperature Pulse Rate 71 77 83 Pulse Rate [ Bilateral] Pulse Rate [ From Monitor] Respiratory 17 21 20 Rate Respiratory Rate [Bilateral ] Blood Pressure 123/58 127/89 121/72 O2 Sat by Pulse 99 100 99 Oximetry 12/20/19 12/20/19 12/20/19 05:01 05:15 05:31 Temperature Pulse Rate 70 75 79 Pulse Rate [ Bilateral] Pulse Rate [ From Monitor] Respiratory 23 18 16 Rate Respiratory Rate [Bilateral ] Blood Pressure 115/68 108/65 107/88 O2 Sat by Pulse 99 97 99 Oximetry 12/20/19 12/20/19 12/20/19 05:45 06:00 06:15 Temperature Pulse Rate 88 78 79 Pulse Rate [ Bilateral] Pulse Rate [ From Monitor] Respiratory 22 16 16 Rate Respiratory Rate [Bilateral ] Blood Pressure 107/88 110/67 120/69 O2 Sat by Pulse 66 L 99 98 Oximetry 12/20/19 12/20/19 12/20/19 08:08 09:10 09:55 Temperature Pulse Rate 71 98 H 99 H Pulse Rate [ 69 Bilateral] Pulse Rate [ From Monitor] Respiratory 23 Rate Respiratory 21 Rate [Bilateral ] Blood Pressure 115/64 154/64 154/65 O2 Sat by Pulse 98 95 Oximetry 12/20/19 12/20/19 09:56 11:40 Temperature Pulse Rate 99 H 83 Pulse Rate [ Bilateral] Pulse Rate [ From Monitor] Respiratory 15 Rate Respiratory Rate [Bilateral ] Blood Pressure 154/65 89/63 O2 Sat by Pulse 94 Oximetry Constitutional: no acute distress, asleep (but rousable), other (middle aged obese male with mildly increased resp effort at rest) Eyes: non-icteric ENT: oropharynx moist, other (ETT 24 cm KOLBY) Neck: supple, no lymphadenopathy, no JVD Effort: mildly labored Ascultation: Bilateral: diminished breath sounds, rhonchi Percussion: Bilateral: not dull Cardiovascular: regular rate and rhythm, other (S1,S2) Gastrointestinal: hypoactive bowel sounds, soft, non-tender, other (distended) Integumentary: rash (stasis dermatyitis) Extremities: no cyanosis, pink and warm, pulses normal, no ischemia or ronnell chiae, edema (trace) Neurologic: non-focal exam, pupils equal and round, motor strength normal and (obeys simple commands), other Psychiatric: other (unable to assess; ) CBC and BMP: 12/20/19 04:45 12/20/19 04:45 ABG, PT/INR, D-dimer: ABG ABG pH 7.407 pH Units (7.350-7.450) 12/20/19 03:35 ABG pCO2 45.0 mm Hg 12/20/19 03:35 ABG pO2 85.7 mm Hg (80.0-90.0) 12/20/19 03:35 ABG O2 Saturation 96.9 % (95.0-99.0) 12/20/19 03:35 PT/INR, D-dimer PT 14.0 Sec. (12.2-14.9) 12/18/19 14:45 INR 1.10 (0.87-1.13) 12/18/19 14:45 D-Dimer 534.45 ng/mlDDU (0-234) H 12/18/19 14:45 Abnormal lab findings: Abnormal Labs 12/18/19 12/18/19 12/18/19 12:23 14:45 14:45 Hgb 10.4 L Hct 35.2 L MCH 25 L MCHC 30 L RDW 18.8 H [place] % (Auto) 11.6 H Eos % (Auto) 4.8 H Lymph # [place] # 1.0 H Seg Neutrophils % D-Dimer ABG pO2 ABG HCO3 ABG O2 Saturation ABG Base Excess ABG Hemoglobin Oxyhemoglobin Sodium Chloride Carbon Dioxide BUN Glucose POC Glucose 328 H Lactic Acid Calcium AST ALT Lactate Dehydrogenase Total Creatine Kinase 40 L C-Reactive Protein Albumin Urine WBC (Auto) Digoxin Salicylates Acetaminophen 12/18/19 12/18/19 12/18/19 14:45 14:45 14:45 Hgb Hct MCH MCHC RDW [place] % (Auto) Eos % (Auto) Lymph # [place] # Seg Neutrophils % D-Dimer 534.45 H ABG pO2 ABG HCO3 ABG O2 Saturation ABG Base Excess ABG Hemoglobin Oxyhemoglobin Sodium 156 H Chloride 112.3 H Carbon Dioxide 31 H BUN 32 H Glucose 328 H POC Glucose Lactic Acid Calcium AST ALT Lactate Dehydrogenase 235 H Total Creatine Kinase C-Reactive Protein 8.50 H Albumin 3.6 L Urine WBC (Auto) Digoxin 0.3 L Salicylates < 0.3 L Acetaminophen 12/18/19 12/18/19 12/18/19 14:45 14:45 16:00 Hgb Hct MCH MCHC RDW [place] % (Auto) Eos % (Auto) Lymph # [place] # Seg Neutrophils % D-Dimer ABG pO2 69.8 L ABG HCO3 31.8 H ABG O2 Saturation ABG Base Excess 5.4 H ABG Hemoglobin 10.0 L Oxyhemoglobin 92.9 L Sodium Chloride Carbon Dioxide BUN Glucose 314 H POC Glucose Lactic Acid Calcium AST ALT Lactate Dehydrogenase 236 H Total Creatine Kinase C-Reactive Protein 8.40 H Albumin Urine WBC (Auto) Digoxin Salicylates Acetaminophen < 5.0 L 12/18/19 12/18/19 12/18/19 16:35 18:30 22:56 Hgb Hct MCH MCHC RDW [place] % (Auto) Eos % (Auto) Lymph # [place] # Seg Neutrophils % D-Dimer ABG pO2 ABG HCO3 ABG O2 Saturation ABG Base Excess ABG Hemoglobin Oxyhemoglobin Sodium Chloride Carbon Dioxide BUN Glucose POC Glucose 310 H 353 H Lactic Acid 2.50 H* Calcium AST ALT Lactate Dehydrogenase Total Creatine Kinase C-Reactive Protein Albumin Urine WBC (Auto) Digoxin Salicylates Acetaminophen 12/19/19 12/19/19 12/19/19 04:13 04:13 06:00 Hgb 10.0 L Hct 34.2 L MCH 25 L MCHC 29 L RDW 19.0 H [place] % (Auto) 10.1 H Eos % (Auto) Lymph # [place] # 1.1 H Seg Neutrophils % 71.8 H D-Dimer ABG pO2 186.5 H ABG HCO3 27.8 H ABG O2 Saturation 99.1 H ABG Base Excess ABG Hemoglobin 10.4 L Oxyhemoglobin Sodium 157 H Chloride 119.1 H Carbon Dioxide BUN 26 H Glucose 302 H POC Glucose Lactic Acid Calcium 7.9 L AST 85 H ALT 61 H Lactate Dehydrogenase Total Creatine Kinase C-Reactive Protein Albumin 3.0 L Urine WBC (Auto) Digoxin Salicylates Acetaminophen 12/19/19 12/19/19 12/19/19 08:30 11:55 16:50 Hgb Hct MCH MCHC RDW [place] % (Auto) Eos % (Auto) Lymph # [place] # Seg Neutrophils % D-Dimer ABG pO2 ABG HCO3 ABG O2 Saturation ABG Base Excess ABG Hemoglobin Oxyhemoglobin Sodium Chloride Carbon Dioxide BUN Glucose POC Glucose 264 H 251 H Lactic Acid Calcium AST ALT Lactate Dehydrogenase Total Creatine Kinase C-Reactive Protein Albumin Urine WBC (Auto) 7.0 H Digoxin Salicylates Acetaminophen 12/19/19 12/19/19 12/20/19 17:41 23:42 03:35 Hgb Hct MCH MCHC RDW [place] % (Auto) Eos % (Auto) Lymph # [place] # Seg Neutrophils % D-Dimer ABG pO2 ABG HCO3 27.7 H ABG O2 Saturation ABG Base Excess ABG Hemoglobin 11.6 L Oxyhemoglobin 94.9 L Sodium Chloride Carbon Dioxide BUN Glucose POC Glucose 180 H 205 H Lactic Acid Calcium AST ALT Lactate Dehydrogenase Total Creatine Kinase C-Reactive Protein Albumin Urine WBC (Auto) Digoxin Salicylates Acetaminophen 12/20/19 12/20/19 12/20/19 04:45 04:45 05:27 Hgb 9.4 L Hct 31.4 L MCH 25 L MCHC 30 L RDW 19.4 H [place] % (Auto) 10.2 H Eos % (Auto) 6.0 H Lymph # 0.9 L [place] # Seg Neutrophils % D-Dimer ABG pO2 ABG HCO3 ABG O2 Saturation ABG Base Excess ABG Hemoglobin Oxyhemoglobin Sodium 153 H Chloride 114.6 H Carbon Dioxide BUN Glucose 170 H POC Glucose 188 H Lactic Acid Calcium 7.9 L AST ALT Lactate Dehydrogenase Total Creatine Kinase C-Reactive Protein Albumin Urine WBC (Auto) Digoxin Salicylates Acetaminophen Chest x-ray: image reviewed Allied health notes reviewed: RT
--- NOTE | 2019-12-20 13:49 | Progress Note ---
Assessment and Plan / Acute hypoxic respiratory failure Likely from bilateral pneumonia and diastolic heart failure Patient intubated, placed on ventilatory support. Wean vent as tolerated, sedation holiday, daily spontaneous breathing trials, scheduled nebs, pulse oximetry, critical care team consulted in ED. The high probability of a clinically significant, sudden or life threatening deterioration of the [cardiac, renal, neuro, pulmonary, infectious disease] system(s) required my full and direct attention, intervention and personal management. The aggregate critical care time was [95] minutes. This time is in addition to time spent performing reported procedures but includes the following: [x] Data Review and interpretation [x] Patient assessment and monitoring of vital signs [x] Documentation [x] Medication orders and management / Sepsis with shock cont IV antibiotic therapy, IV fluid resuscitation therapy, monitor urine output every shift, maintain mean arterial blood pressure greater than or equal to 65, s/p IV pressor support. / Suspected 2018-nCoV infection -ruled out with negative test Initiate COVID-19 protocol: Infectious disease team consulted in ED, COVID-19 PCR ordered in ED. / Diastolic CHF Preserved EF based on prior echocardiogram Monitor weight strict I's/O, daily weight, monitor urine output every shift, submental oxygen, blood pressure control. /JAGDEEP, due to vasomotor nephropathy, present on admission -Creatinine improving, continue IV fluid -Likely due to severe sepsis and hypotension /Hyponatremia, due to dehydration and sepsis -Continue IV fluid, monitor BMP / Diabetes type II Initiate tube feeding diet Sliding scale insulin, Accu-Chek, hypoglycemia protocol. / Hypothyroidism Synthroid therapy, supportive care. / Bilateral pneumonia Pneumonia protocol: IV antibiotic therapy, pulse oximetry, follow cultures /Cervical lymphadenopathy -Reactive versus infectious process versus malignancy -Need repeat scanning and further staging when medically more stable -Pulmonology and ID following / HTN (hypertension) -hold BP meds as patient is hypotensive Monitor blood pressure every shift, continue medical management. /History of obstructive sleep apnea -Patient currently on mechanical ventilation /Urinary retention, suspected in the ER -Patient having good urine output now, will hold any CT scan -Continue IV fluid / DVT prophylaxis SCD to bilateral lower extremities while in bed, prophylactic heparin 12/19/19: Negative for COVID-19, continue pressor and wean off as tolerated, continue IV antibiotic and follow cultures. 12/19: Weaned off from pressor, sodium 156>157>153 today, creatinine 1.4>1.2>1.0. Continue IV fluid. Wean off from vent as tolerated. Follow ID recommendation Brief history: 59-year-old male past medical history diastolic CHF, OHS, HTN, DM 2, hypothyroidism admitted with confusion after being found by a neighbor. On arrival patient was found to be lethargic, and in respiratory distress and hypoxic. Patient was intubated in the ER because of hypoxic respiratory failure. Also noted to be hypotensive, placed on pressor admitted to ICU Chest x-ray: Left lower lobe airspace disease CT chest: 1. Patchy bilateral nodular and consolidative airspace opacities which are nonspecific but likely related to the reported history of Covid. 2. Multiple enlarged partially visualized left supraclavicular and lower cervical chain lymph nodes. While these are nonspecific and may be reactive, a neoplastic process is possible, recommend short interval follow-up after patient recovers from the acute episode. Physical exam: GENERAL: well-developed obese white male lying on bed appeared to be in no dis comfort. Patient is intubated and sedated HEENT: Normocephalic. Atraumatic. No conjunctival congestion or icterus. Patient has moist mucous membranes. NECK: Supple. Trachea midline. CHEST/LUNGS: Coarse breath sound auscultated bilaterally, on mechanical ventilation HEART/CARDIOVASCULAR: Regular in rate and rhythm. S1 and S2 positive. ABDOMEN: Abdomen is soft, nontender. Patient has normal bowel sounds. SKIN: There is no rash. Warm and dry. NEURO: Does not follow command, patient on sedation MUSCULOSKELETAL: No joint effusion or tenderness. EXTRIMITY: No edema, no cyanosis or clubbing. PSYCH: On sedation Subjective Date of service: 12/20/19 Principal diagnosis: Ac. Hypoxemic Resp Failure; Septic Shock; Magdiel. PNA; PUI COVID-19; CHF; JOE Interval history: Patient seen and examined Patient off pressor from last night Remains on mechanical ventilation Having good urine output, tolerating tube feeding Objective - Constitutional Vitals: Vital Signs - 12hr 12/20/19 12/20/19 12/20/19 02:01 02:15 02:30 Temperature Pulse Rate 81 89 77 Pulse Rate [ Bilateral] Pulse Rate [ From Monitor] Respiratory 31 H 20 16 Rate Respiratory Rate [Bilateral ] Blood Pressure 116/77 111/80 105/66 O2 Sat by Pulse 97 97 98 Oximetry 12/20/19 12/20/19 12/20/19 02:45 03:00 03:15 Temperature Pulse Rate 65 72 86 Pulse Rate [ Bilateral] Pulse Rate [ From Monitor] Respiratory 18 19 17 Rate Respiratory Rate [Bilateral ] Blood Pressure 116/57 118/55 112/68 O2 Sat by Pulse 98 99 98 Oximetry 12/20/19 12/20/19 12/20/19 03:30 03:45 03:46 Temperature Pulse Rate 72 68 69 Pulse Rate [ Bilateral] Pulse Rate [ From Monitor] Respiratory 24 18 Rate Respiratory Rate [Bilateral ] Blood Pressure 115/64 108/64 108/64 O2 Sat by Pulse 99 99 99 Oximetry 12/20/19 12/20/19 12/20/19 04:00 04:15 04:30 Temperature 97.0 F L Pulse Rate 72 71 77 Pulse Rate [ Bilateral] Pulse Rate [ 72 From Monitor] Respiratory 17 17 21 Rate Respiratory Rate [Bilateral ] Blood Pressure 101/56 123/58 127/89 O2 Sat by Pulse 99 99 100 Oximetry 12/20/19 12/20/19 12/20/19 04:45 05:01 05:15 Temperature Pulse Rate 83 70 75 Pulse Rate [ Bilateral] Pulse Rate [ From Monitor] Respiratory 20 23 18 Rate Respiratory Rate [Bilateral ] Blood Pressure 121/72 115/68 108/65 O2 Sat by Pulse 99 99 97 Oximetry 12/20/19 12/20/19 12/20/19 05:31 05:45 06:00 Temperature Pulse Rate 79 88 78 Pulse Rate [ Bilateral] Pulse Rate [ From Monitor] Respiratory 16 22 16 Rate Respiratory Rate [Bilateral ] Blood Pressure 107/88 107/88 110/67 O2 Sat by Pulse 99 66 L 99 Oximetry 12/20/19 12/20/19 12/20/19 06:15 06:30 06:45 Temperature Pulse Rate 79 84 73 Pulse Rate [ Bilateral] Pulse Rate [ From Monitor] Respiratory 16 22 19 Rate Respiratory Rate [Bilateral ] Blood Pressure 120/69 121/66 112/69 O2 Sat by Pulse 98 100 100 Oximetry 12/20/19 12/20/19 12/20/19 07:00 07:15 07:30 Temperature Pulse Rate 68 75 75 Pulse Rate [ Bilateral] Pulse Rate [ From Monitor] Respiratory 18 16 17 Rate Respiratory Rate [Bilateral ] Blood Pressure 107/51 102/63 104/57 O2 Sat by Pulse 99 99 100 Oximetry 12/20/19 12/20/19 12/20/19 07:45 08:00 08:08 Temperature 97.5 F L Pulse Rate 76 73 71 Pulse Rate [ 69 Bilateral] Pulse Rate [ 83 From Monitor] Respiratory 16 18 Rate Respiratory 21 Rate [Bilateral ] Blood Pressure 98/58 115/65 115/64 O2 Sat by Pulse 99 99 98 Oximetry 12/20/19 12/20/19 12/20/19 08:15 08:30 08:45 Temperature Pulse Rate 97 H 71 69 Pulse Rate [ Bilateral] Pulse Rate [ From Monitor] Respiratory 12 16 16 Rate Respiratory Rate [Bilateral ] Blood Pressure 121/85 121/57 112/54 O2 Sat by Pulse 99 94 99 Oximetry 12/20/19 12/20/19 12/20/19 09:01 09:10 09:15 Temperature Pulse Rate 78 98 H 61 Pulse Rate [ Bilateral] Pulse Rate [ From Monitor] Respiratory 17 23 17 Rate Respiratory Rate [Bilateral ] Blood Pressure 115/54 154/64 121/57 O2 Sat by Pulse 98 95 90 Oximetry 12/20/19 12/20/19 12/20/19 09:31 09:45 09:55 Temperature Pulse Rate 72 89 99 H Pulse Rate [ Bilateral] Pulse Rate [ From Monitor] Respiratory 16 16 Rate Respiratory Rate [Bilateral ] Blood Pressure 125/43 115/54 154/65 O2 Sat by Pulse 96 93 Oximetry 12/20/19 12/20/19 12/20/19 09:56 10:01 10:15 Temperature Pulse Rate 99 H 99 H 92 H Pulse Rate [ Bilateral] Pulse Rate [ From Monitor] Respiratory 27 H 24 Rate Respiratory Rate [Bilateral ] Blood Pressure 154/65 119/72 107/64 O2 Sat by Pulse 95 94 Oximetry 12/20/19 12/20/19 12/20/19 10:30 10:45 11:00 Temperature Pulse Rate 91 H 91 H 90 Pulse Rate [ Bilateral] Pulse Rate [ From Monitor] Respiratory 16 15 16 Rate Respiratory Rate [Bilateral ] Blood Pressure 100/57 109/62 99/59 O2 Sat by Pulse 95 93 95 Oximetry 12/20/19 12/20/19 12/20/19 11:15 11:30 11:40 Temperature Pulse Rate 86 86 83 Pulse Rate [ Bilateral] Pulse Rate [ From Monitor] Respiratory 16 18 15 Rate Respiratory Rate [Bilateral ] Blood Pressure 89/54 94/57 89/63 O2 Sat by Pulse 94 94 94 Oximetry 12/20/19 12/20/19 12/20/19 11:45 12:00 12:15 Temperature 98.3 F Pulse Rate 83 88 83 Pulse Rate [ Bilateral] Pulse Rate [ 85 From Monitor] Respiratory 13 18 16 Rate Respiratory Rate [Bilateral ] Blood Pressure 100/67 99/69 109/68 O2 Sat by Pulse 96 96 97 Oximetry 12/20/19 12:30 Temperature Pulse Rate 87 Pulse Rate [ Bilateral] Pulse Rate [ From Monitor] Respiratory 17 Rate Respiratory Rate [Bilateral ] Blood Pressure 113/65 O2 Sat by Pulse 98 Oximetry - Labs CBC & Chem 7: 12/22/19 05:15 12/22/19 05:15 Labs: Abnormal lab results 12/19/19 12/19/19 12/19/19 Range/Units 08:30 11:55 16:50 Hgb (11.8-15.2) gm/dl Hct (35.5-45.6) % MCH (28-32) pg MCHC (32-34) % RDW (13.2-15.2) % [place] % (Auto) (0.0-7.3) % Eos % (Auto) (0.0-4.3) % Lymph # (1.2-5.4) K/mm3 ABG HCO3 (20.0-26.0) mmol/L ABG Hemoglobin (14.0-18.0) gm/dl Oxyhemoglobin (95.0-99.0) % Sodium (137-145) mmol/L Chloride (98-107) mmol/L Glucose (75-100) mg/dL POC Glucose 264 H 251 H (70-105) Calcium (8.4-10.2) mg/dL Urine WBC (Auto) 7.0 H (0.0-6.0) /HPF 12/19/19 12/19/19 12/20/19 Range/Units 17:41 23:42 03:35 Hgb (11.8-15.2) gm/dl Hct (35.5-45.6) % MCH (28-32) pg MCHC (32-34) % RDW (13.2-15.2) % [place] % (Auto) (0.0-7.3) % Eos % (Auto) (0.0-4.3) % Lymph # (1.2-5.4) K/mm3 ABG HCO3 27.7 H (20.0-26.0) mmol/L ABG Hemoglobin 11.6 L (14.0-18.0) gm/dl Oxyhemoglobin 94.9 L (95.0-99.0) % Sodium (137-145) mmol/L Chloride (98-107) mmol/L Glucose (75-100) mg/dL POC Glucose 180 H 205 H (70-105) Calcium (8.4-10.2) mg/dL Urine WBC (Auto) (0.0-6.0) /HPF 12/20/19 12/20/19 12/20/19 Range/Units 04:45 04:45 05:27 Hgb 9.4 L (11.8-15.2) gm/dl Hct 31.4 L (35.5-45.6) % MCH 25 L (28-32) pg MCHC 30 L (32-34) % RDW 19.4 H (13.2-15.2) % [place] % (Auto) 10.2 H (0.0-7.3) % Eos % (Auto) 6.0 H (0.0-4.3) % Lymph # 0.9 L (1.2-5.4) K/mm3 ABG HCO3 (20.0-26.0) mmol/L ABG Hemoglobin (14.0-18.0) gm/dl Oxyhemoglobin (95.0-99.0) % Sodium 153 H (137-145) mmol/L Chloride 114.6 H (98-107) mmol/L Glucose 170 H (75-100) mg/dL POC Glucose 188 H (70-105) Calcium 7.9 L (8.4-10.2) mg/dL Urine WBC (Auto) (0.0-6.0) /HPF 12/20/19 Range/Units 12:26 Hgb (11.8-15.2) gm/dl Hct (35.5-45.6) % MCH (28-32) pg MCHC (32-34) % RDW (13.2-15.2) % [place] % (Auto) (0.0-7.3) % Eos % (Auto) (0.0-4.3) % Lymph # (1.2-5.4) K/mm3 ABG HCO3 (20.0-26.0) mmol/L ABG Hemoglobin (14.0-18.0) gm/dl Oxyhemoglobin (95.0-99.0) % Sodium (137-145) mmol/L Chloride (98-107) mmol/L Glucose (75-100) mg/dL POC Glucose 200 H (70-105) Calcium (8.4-10.2) mg/dL Urine WBC (Auto) (0.0-6.0) /HPF HEART Score - HEART Score Troponin: Troponin T 0.011 ng/mL (0.00-0.029) 12/18/19 14:45
--- NOTE | 2019-12-20 15:42 | Progress Note ---
Assessment and Plan Cultures: Blood culture 12/18/2019 pending A/P: 59-year-old male past medical history diastolic CHF, OHS, HTN, DM 2, hypothyroidism #Acute hypoxic respiratory failure: Given his normal procalcitonin, and normal white count a feel less likely that this is a bacterial pneumonia. Recommend repeat testing for COVID-19. I do not see the order in the chart, so I will order however if it is ordered and obtained please cancel my order. If negative again, will consider other viral etiology of pneumonia. #Diabetes: Tight glycemic control. #Multiple chronic comorbidities: High risk for poor COVID-19 outcome positive Recs: -Continue COVID-19 isolation precautions -Collect and follow-up COVID-19 repeat testing -Continue empiric ceftriaxone for now -We will follow with further recommendations for Remdesivir or Actemra when testing is resulted. Thank you for the consult, we will continue to follow. Sabrina Pinzon MD [facility] ([facility]) M: [phone] O: [phone] F: [phone] Subjective Date of service: 12/20/19 Principal diagnosis: Ac. Hypoxemic Resp Failure; Septic Shock; Magdiel. PNA; PUI COVID-19; CHF; JOE Interval history: Afebrile with a normal white count now Imaging personally reviewed: Chest x-ray: Bilateral lower lobe pneumonia, unchanged. Objective - Exam Narrative Exam: Physical Exam: Constitutional: Intubated, sedated Head, Ears, Nose: Normocephalic, atraumatic. External ears, nose normal Eyes: Conjunctivae/corneas clear. No icterus. No ptosis. Neck: Intubated Oral: Intubated Cardiovascular: S1, S2 normal. Respiratory: Good air entry, clear to auscultation bilaterally GI: Soft, non-tender; bowel sounds normal. No peritoneal signs. Musculoskeletal: No pedal edema, no cyanosis. Skin: No rash or abscess Hem/Lymphatic: No palpable cervical or supraclavicular nodes. No lymphangitis Psych: Sedated Neurological: Sedated - Constitutional Vitals: Vital Signs Temp Pulse Resp BP Pulse Ox 98.3 F 80 19 108/59 98 12/20/19 12:00 12/20/19 14:45 12/20/19 14:45 12/20/19 14:45 12/20/19 14:45 Temperature -Last 24 Hours Temperature 98.3 F Temperature 97.5 F Temperature 97.0 F Temperature 98.7 F Temperature 98.0 F - Labs CBC & Chem 7: 12/20/19 04:45 12/20/19 04:45 Labs: Abnormal lab results 12/19/19 12/19/19 12/19/19 Range/Units 16:50 17:41 23:42 Hgb (11.8-15.2) gm/dl Hct (35.5-45.6) % MCH (28-32) pg MCHC (32-34) % RDW (13.2-15.2) % [place] % (Auto) (0.0-7.3) % Eos % (Auto) (0.0-4.3) % Lymph # (1.2-5.4) K/mm3 ABG HCO3 (20.0-26.0) mmol/L ABG Hemoglobin (14.0-18.0) gm/dl Oxyhemoglobin (95.0-99.0) % Sodium (137-145) mmol/L Chloride (98-107) mmol/L Glucose (75-100) mg/dL POC Glucose 180 H 205 H (70-105) Calcium (8.4-10.2) mg/dL Urine WBC (Auto) 7.0 H (0.0-6.0) /HPF 12/20/19 12/20/19 12/20/19 Range/Units 03:35 04:45 04:45 Hgb 9.4 L (11.8-15.2) gm/dl Hct 31.4 L (35.5-45.6) % MCH 25 L (28-32) pg MCHC 30 L (32-34) % RDW 19.4 H (13.2-15.2) % [place] % (Auto) 10.2 H (0.0-7.3) % Eos % (Auto) 6.0 H (0.0-4.3) % Lymph # 0.9 L (1.2-5.4) K/mm3 ABG HCO3 27.7 H (20.0-26.0) mmol/L ABG Hemoglobin 11.6 L (14.0-18.0) gm/dl Oxyhemoglobin 94.9 L (95.0-99.0) % Sodium 153 H (137-145) mmol/L Chloride 114.6 H (98-107) mmol/L Glucose 170 H (75-100) mg/dL POC Glucose (70-105) Calcium 7.9 L (8.4-10.2) mg/dL Urine WBC (Auto) (0.0-6.0) /HPF 12/20/19 12/20/19 Range/Units 05:27 12:26 Hgb (11.8-15.2) gm/dl Hct (35.5-45.6) % MCH (28-32) pg MCHC (32-34) % RDW (13.2-15.2) % [place] % (Auto) (0.0-7.3) % Eos % (Auto) (0.0-4.3) % Lymph # (1.2-5.4) K/mm3 ABG HCO3 (20.0-26.0) mmol/L ABG Hemoglobin (14.0-18.0) gm/dl Oxyhemoglobin (95.0-99.0) % Sodium (137-145) mmol/L Chloride (98-107) mmol/L Glucose (75-100) mg/dL POC Glucose 188 H 200 H (70-105) Calcium (8.4-10.2) mg/dL Urine WBC (Auto) (0.0-6.0) /HPF
[2019-12-21] MEDS: INSULIN LISPRO 100 UNIT/ML SUB-Q SCH ×4 (00:56→18:23)
--- NOTE | 2019-12-21 04:08 | XRay Report ---
CHEST 1 VIEW 12/21/2019 2:58 AM INDICATION / CLINICAL INFORMATION: follow up respiratory failure. COMPARISON: Chest x-ray 12/20/2019 FINDINGS: SUPPORT DEVICES: ET tube and NG tube again project in expected position. HEART / MEDIASTINUM: Cardiac silhouette remains moderately enlarged. LUNGS / PLEURA: Moderate bilateral pleural-parenchymal disease has slightly worsened. No pneumothorax . ADDITIONAL FINDINGS: No significant additional findings. IMPRESSION: 1. Worsening bilateral pleural-parenchymal disease Signer Name: Richard Amaro MD Signed: 12/21/2019 4:03 AM Workstation Name: [id number]
[2019-12-21 05:59] LABS: BUN/Creatinine Ratio 15; Blood Urea Nitrogen 15 mg/dL (9-20); Calcium 8.5 mg/dL (8.4-10.2); Hemolysis Index 21
[2019-12-21] MEDS: LEVOTHYROXINE 88 MCG TAB PO SCH (06:29)
[2019-12-21] MEDS: IPRATROPIUM/ALBUTEROL SULFATE 3 ML AMPUL.NEB IH SCH ×3 (07:26→21:07)
[2019-12-21] MEDS ORDERED: POTASSIUM CHLORIDE 20 MEQ PACKET FEEDTUBE ONE (09:00)
[2019-12-21] MEDS: HEPARIN 5,000 UNIT/1 ML VIAL SUB-Q SCH ×2 (09:35→21:42)
--- NOTE | 2019-12-21 09:35 | Progress Note ---
Assessment and Plan Acute Hypoxemic Respiratory Failure on MVS Severe Sepsis with Shock Bilateral Pneumonia COVID-19 NEGATIVE Morbid Obesity H/O CHF JOE Hypernatremia SBT today, get weaning parameters at the end of the trial If acceptable, goal is to liberate from MVS today Add lantus 10 units subcut daily for better glycemic control Repalece potassium, keep at 4.0 to optimize respiratory muscle function Complete Rocephin Free water flushes fro hypernatremia - continue Daily SAT and SBT assessment as tolerated - continue to wean supplemental oxygen for target O2 sats > 90% acutely - VAP bundle addressed - continue lung protective strategies - continue bronchodilators with pulmonary hygiene per RT - wean per pulmonary driven protocols otherwise - continue accuchecks with glycemic control per SSI (While critically ill target blood glucose of 140-180 mg/dL; avoid hypoglycemia) - sedation prn for target RASS 0 to -1 - continue to avoid benzodiazepines, reduce the possibility of delirium - prn analgesia per CPOT score - Maintenance of sleep-wake cycle, avoid delirium - enteral nutritional support at goal rate as tolerated ( OGT with Vital AF at 25ml, goal rate is 65) - G.I. & VTE prophylaxis - PT/OT/ROM exercises - continue mobility protocols for pressure ulcer prophylaxis - Monitor hemodynamics closely-episodes of asymptomatic bradycardia - continue other care per attending / other consultants - discharge planning ongoing concurrently CONDITION: CRITICAL PROGNOSIS: GUARDED CODE STATUS: FULL CODE The high probability of a clinically significant, sudden or life-threatening deterioration of the [respiratory, cardiovascular, GI & neurologic] system(s) required my full and direct attention, intervention and personal management. The aggregate critical care time was [31] minutes without overlap. Time includes spent on; [x] Data Review and interpretation [x] Patient assessment and monitoring of vital signs [x] Documentation [x] Medication orders and management Subjective Date of service: 12/21/19 Principal diagnosis: Ac. Hypoxemic Resp Failure; Septic Shock; Magdiel. PNA; PUI COVID-19; CHF; JOE Interval history: Patient is seen today for: Acute Hypoxemic Respiratory Failure; Severe Sepsis with Shock; Bilateral Pneumonia; Morbid Obesity; H/O CHF; JOE Seen and examined at bedside; 24hour events reviewed; nursing and respiratory care staff consulted; no adverse overnight events reported to me; resting peacefully in bed; off Fentanyl ; no N/V/F/C; off Levophed drip -stopped last night . Remains orally intubated Vent settings VC-AC 16/450/6/45% with acceptable oxygenation and acid-base on ABGs SBT today Objective Vital Signs - 12hr 12/20/19 12/20/19 12/20/19 21:46 21:53 22:00 Temperature Pulse Rate 86 86 85 Pulse Rate [ Bilateral] Pulse Rate [ From Monitor] Respiratory 21 18 Rate Respiratory Rate [Bilateral ] Respiratory 32 H Rate [pt denies ] Blood Pressure 138/62 133/70 133/70 O2 Sat by Pulse 95 97 Oximetry 12/20/19 12/20/19 12/20/19 22:16 22:30 22:46 Temperature Pulse Rate 89 100 H 92 H Pulse Rate [ Bilateral] Pulse Rate [ From Monitor] Respiratory 21 18 17 Rate Respiratory Rate [Bilateral ] Respiratory Rate [pt denies ] Blood Pressure 118/71 118/71 135/96 O2 Sat by Pulse 98 97 100 Oximetry 12/20/19 12/20/19 12/20/19 23:00 23:16 23:30 Temperature Pulse Rate 87 88 86 Pulse Rate [ Bilateral] Pulse Rate [ From Monitor] Respiratory 16 16 16 Rate Respiratory Rate [Bilateral ] Respiratory Rate [pt denies ] Blood Pressure 135/96 100/47 135/96 O2 Sat by Pulse 100 100 100 Oximetry 12/20/19 12/20/19 12/20/19 23:34 23:37 23:42 Temperature 98.9 F Pulse Rate 91 H 87 Pulse Rate [ Bilateral] Pulse Rate [ From Monitor] Respiratory 17 Rate Respiratory Rate [Bilateral ] Respiratory Rate [pt denies ] Blood Pressure 100/47 135/96 O2 Sat by Pulse 100 100 Oximetry 12/20/19 12/21/19 12/21/19 23:46 00:00 00:16 Temperature Pulse Rate 85 83 77 Pulse Rate [ Bilateral] Pulse Rate [ 83 From Monitor] Respiratory 16 16 16 Rate Respiratory Rate [Bilateral ] Respiratory Rate [pt denies ] Blood Pressure 135/96 135/96 89/35 O2 Sat by Pulse 100 100 100 Oximetry 12/21/19 12/21/19 12/21/19 00:30 00:46 01:01 Temperature Pulse Rate 73 80 78 Pulse Rate [ Bilateral] Pulse Rate [ From Monitor] Respiratory 16 17 16 Rate Respiratory Rate [Bilateral ] Respiratory Rate [pt denies ] Blood Pressure 83/45 99/28 98/47 O2 Sat by Pulse 100 100 Oximetry 12/21/19 12/21/19 12/21/19 01:16 01:30 01:46 Temperature Pulse Rate 76 77 74 Pulse Rate [ Bilateral] Pulse Rate [ From Monitor] Respiratory 16 17 16 Rate Respiratory Rate [Bilateral ] Respiratory Rate [pt denies ] Blood Pressure 91/48 88/46 89/50 O2 Sat by Pulse 100 100 100 Oximetry 12/21/19 12/21/19 12/21/19 02:00 02:15 02:30 Temperature Pulse Rate 72 72 72 Pulse Rate [ Bilateral] Pulse Rate [ From Monitor] Respiratory 17 25 H 27 H Rate Respiratory Rate [Bilateral ] Respiratory Rate [pt denies ] Blood Pressure 90/50 106/61 100/64 O2 Sat by Pulse 100 100 100 Oximetry 12/21/19 12/21/19 12/21/19 02:45 03:00 03:16 Temperature Pulse Rate 80 78 75 Pulse Rate [ Bilateral] Pulse Rate [ From Monitor] Respiratory 16 20 24 Rate Respiratory Rate [Bilateral ] Respiratory Rate [pt denies ] Blood Pressure 99/69 110/65 123/68 O2 Sat by Pulse 100 100 100 Oximetry 12/21/19 12/21/19 12/21/19 03:30 03:37 03:46 Temperature 97.8 F Pulse Rate 77 80 Pulse Rate [ Bilateral] Pulse Rate [ From Monitor] Respiratory 27 H 18 Rate Respiratory Rate [Bilateral ] Respiratory Rate [pt denies ] Blood Pressure 119/71 119/71 O2 Sat by Pulse 100 100 Oximetry 12/21/19 12/21/19 12/21/19 04:00 04:12 04:16 Temperature Pulse Rate 83 82 78 Pulse Rate [ Bilateral] Pulse Rate [ 83 From Monitor] Respiratory 22 24 Rate Respiratory Rate [Bilateral ] Respiratory Rate [pt denies ] Blood Pressure 142/58 142/58 125/78 O2 Sat by Pulse 100 100 100 Oximetry 12/21/19 12/21/19 12/21/19 04:30 04:46 05:00 Temperature Pulse Rate 85 76 75 Pulse Rate [ Bilateral] Pulse Rate [ From Monitor] Respiratory 22 17 20 Rate Respiratory Rate [Bilateral ] Respiratory Rate [pt denies ] Blood Pressure 125/78 109/69 115/66 O2 Sat by Pulse 100 100 100 Oximetry 12/21/19 12/21/19 12/21/19 05:16 05:30 05:46 Temperature Pulse Rate 76 76 77 Pulse Rate [ Bilateral] Pulse Rate [ From Monitor] Respiratory 22 24 29 H Rate Respiratory Rate [Bilateral ] Respiratory Rate [pt denies ] Blood Pressure 110/65 110/65 104/62 O2 Sat by Pulse 100 100 100 Oximetry 12/21/19 12/21/19 12/21/19 06:00 06:16 06:30 Temperature Pulse Rate 75 79 73 Pulse Rate [ Bilateral] Pulse Rate [ From Monitor] Respiratory 19 22 19 Rate Respiratory Rate [Bilateral ] Respiratory Rate [pt denies ] Blood Pressure 110/67 119/67 119/67 O2 Sat by Pulse 100 100 100 Oximetry 12/21/19 12/21/19 12/21/19 06:46 07:00 07:28 Temperature Pulse Rate 78 72 Pulse Rate [ 84 Bilateral] Pulse Rate [ From Monitor] Respiratory 32 H 17 Rate Respiratory 24 Rate [Bilateral ] Respiratory Rate [pt denies ] Blood Pressure 113/61 113/61 O2 Sat by Pulse 100 100 Oximetry 12/21/19 08:00 Temperature Pulse Rate 72 Pulse Rate [ Bilateral] Pulse Rate [ From Monitor] Respiratory 23 Rate Respiratory Rate [Bilateral ] Respiratory Rate [pt denies ] Blood Pressure 113/61 O2 Sat by Pulse 100 Oximetry Constitutional: no acute distress, asleep (but rousable), other (middle aged obese male with normal resp effort at rest) Eyes: non-icteric ENT: oropharynx moist, other (ETT 24 cm KOLBY) Neck: supple, no lymphadenopathy, no JVD Effort: normal Ascultation: Bilateral: diminished breath sounds, rhonchi Percussion: Bilateral: not dull Cardiovascular: regular rate and rhythm, other (S1,S2) Gastrointestinal: hypoactive bowel sounds, soft, non-tender, other (distended) Integumentary: rash (stasis dermatyitis) Extremities: no cyanosis, pink and warm, pulses normal, no ischemia or petechiae, edema (trace) Neurologic: non-focal exam, pupils equal and round, motor strength normal and (obeys simple commands), other Psychiatric: other (unable to assess; ) CBC and BMP: 12/22/19 05:15 12/22/19 05:15 ABG, PT/INR, D-dimer: ABG ABG pH 7.407 pH Units (7.350-7.450) 12/20/19 03:35 ABG pCO2 45.0 mm Hg 12/20/19 03:35 ABG pO2 85.7 mm Hg (80.0-90.0) 12/20/19 03:35 ABG O2 Saturation 96.9 % (95.0-99.0) 12/20/19 03:35 PT/INR, D-dimer PT 14.0 Sec. (12.2-14.9) 12/18/19 14:45 INR 1.10 (0.87-1.13) 12/18/19 14:45 D-Dimer 534.45 ng/mlDDU (0-234) H 12/18/19 14:45 Abnormal lab findings: Abnormal Labs 12/18/19 12/18/19 12/18/19 12:23 14:45 14:45 Hgb 10.4 L Hct 35.2 L MCH 25 L MCHC 30 L RDW 18.8 H Rains % (Auto) 11.6 H Eos % (Auto) 4.8 H Lymph # Rains # 1.0 H Seg Neutrophils % D-Dimer ABG pO2 ABG HCO3 ABG O2 Saturation ABG Base Excess ABG Hemoglobin Oxyhemoglobin Sodium Potassium Chloride Carbon Dioxide BUN Glucose POC Glucose 328 H Lactic Acid Calcium AST ALT Lactate Dehydrogenase Total Creatine Kinase 40 L C-Reactive Protein Albumin Urine WBC (Auto) Digoxin Salicylates Acetaminophen 12/18/19 12/18/19 12/18/19 14:45 14:45 14:45 Hgb Hct MCH MCHC RDW Rains % (Auto) Eos % (Auto) Lymph # Rains # Seg Neutrophils % D-Dimer 534.45 H ABG pO2 ABG HCO3 ABG O2 Saturation ABG Base Excess ABG Hemoglobin Oxyhemoglobin Sodium 156 H Potassium Chloride 112.3 H Carbon Dioxide 31 H BUN 32 H Glucose 328 H POC Glucose Lactic Acid Calcium AST ALT Lactate Dehydrogenase 235 H Total Creatine Kinase C-Reactive Protein 8.50 H Albumin 3.6 L Urine WBC (Auto) Digoxin 0.3 L Salicylates < 0.3 L Acetaminophen 12/18/19 12/18/19 12/18/19 14:45 14:45 16:00 Hgb Hct MCH MCHC RDW Rains % (Auto) Eos % (Auto) Lymph # Rains # Seg Neutrophils % D-Dimer ABG pO2 69.8 L ABG HCO3 31.8 H ABG O2 Saturation ABG Base Excess 5.4 H ABG Hemoglobin 10.0 L Oxyhemoglobin 92.9 L Sodium Potassium Chloride Carbon Dioxide BUN Glucose 314 H POC Glucose Lactic Acid Calcium AST ALT Lactate Dehydrogenase 236 H Total Creatine Kinase C-Reactive Protein 8.40 H Albumin Urine WBC (Auto) Digoxin Salicylates Acetaminophen < 5.0 L 12/18/19 12/18/19 12/18/19 16:35 18:30 22:56 Hgb Hct MCH MCHC RDW Rains % (Auto) Eos % (Auto) Lymph # Rains # Seg Neutrophils % D-Dimer ABG pO2 ABG HCO3 ABG O2 Saturation ABG Base Excess ABG Hemoglobin Oxyhemoglobin Sodium Potassium Chloride Carbon Dioxide BUN Glucose POC Glucose 310 H 353 H Lactic Acid 2.50 H* Calcium AST ALT Lactate Dehydrogenase Total Creatine Kinase C-Reactive Protein Albumin Urine WBC (Auto) Digoxin Salicylates Acetaminophen 12/19/19 12/19/19 12/19/19 04:13 04:13 06:00 Hgb 10.0 L Hct 34.2 L MCH 25 L MCHC 29 L RDW 19.0 H Rains % (Auto) 10.1 H Eos % (Auto) Lymph # Rains # 1.1 H Seg Neutrophils % 71.8 H D-Dimer ABG pO2 186.5 H ABG HCO3 27.8 H ABG O2 Saturation 99.1 H ABG Base Excess ABG Hemoglobin 10.4 L Oxyhemoglobin Sodium 157 H Potassium Chloride 119.1 H Carbon Dioxide BUN 26 H Glucose 302 H POC Glucose Lactic Acid Calcium 7.9 L AST 85 H ALT 61 H Lactate Dehydrogenase Total Creatine Kinase C-Reactive Protein Albumin 3.0 L Urine WBC (Auto) Digoxin Salicylates Acetaminophen 12/19/19 12/19/19 12/19/19 08:30 11:55 16:50 Hgb Hct MCH MCHC RDW Rains % (Auto) Eos % (Auto) Lymph # Rains # Seg Neutrophils % D-Dimer ABG pO2 ABG HCO3 ABG O2 Saturation ABG Base Excess ABG Hemoglobin Oxyhemoglobin Sodium Potassium Chloride Carbon Dioxide BUN Glucose POC Glucose 264 H 251 H Lactic Acid Calcium AST ALT Lactate Dehydrogenase Total Creatine Kinase C-Reactive Protein Albumin Urine WBC (Auto) 7.0 H Digoxin Salicylates Acetaminophen 12/19/19 12/19/19 12/20/19 17:41 23:42 03:35 Hgb Hct MCH MCHC RDW Rains % (Auto) Eos % (Auto) Lymph # Rains # Seg Neutrophils % D-Dimer ABG pO2 ABG HCO3 27.7 H ABG O2 Saturation ABG Base Excess ABG Hemoglobin 11.6 L Oxyhemoglobin 94.9 L Sodium Potassium Chloride Carbon Dioxide BUN Glucose POC Glucose 180 H 205 H Lactic Acid Calcium AST ALT Lactate Dehydrogenase Total Creatine Kinase C-Reactive Protein Albumin Urine WBC (Auto) Digoxin Salicylates Acetaminophen 12/20/19 12/20/19 12/20/19 04:45 04:45 05:27 Hgb 9.4 L Hct 31.4 L MCH 25 L MCHC 30 L RDW 19.4 H Rains % (Auto) 10.2 H Eos % (Auto) 6.0 H Lymph # 0.9 L Rains # Seg Neutrophils % D-Dimer ABG pO2 ABG HCO3 ABG O2 Saturation ABG Base Excess ABG Hemoglobin Oxyhemoglobin Sodium 153 H Potassium Chloride 114.6 H Carbon Dioxide BUN Glucose 170 H POC Glucose 188 H Lactic Acid Calcium 7.9 L AST ALT Lactate Dehydrogenase Total Creatine Kinase C-Reactive Protein Albumin Urine WBC (Auto) Digoxin Salicylates Acetaminophen 12/20/19 12/20/19 12/21/19 12:26 18:20 00:20 Hgb Hct MCH MCHC RDW Rains % (Auto) Eos % (Auto) Lymph # Rains # Seg Neutrophils % D-Dimer ABG pO2 ABG HCO3 ABG O2 Saturation ABG Base Excess ABG Hemoglobin Oxyhemoglobin Sodium Potassium Chloride Carbon Dioxide BUN Glucose POC Glucose 200 H 263 H 218 H Lactic Acid Calcium AST ALT Lactate Dehydrogenase Total Creatine Kinase C-Reactive Protein Albumin Urine WBC (Auto) Digoxin Salicylates Acetaminophen 12/21/19 12/21/19 04:38 05:26 Hgb Hct MCH MCHC RDW Rains % (Auto) Eos % (Auto) Lymph # Rains # Seg Neutrophils % D-Dimer ABG pO2 ABG HCO3 ABG O2 Saturation ABG Base Excess ABG Hemoglobin Oxyhemoglobin Sodium 149 H Potassium 3.5 L Chloride 110.5 H Carbon Dioxide BUN Glucose 158 H POC Glucose 193 H Lactic Acid Calcium AST ALT Lactate Dehydrogenase Total Creatine Kinase C-Reactive Protein Albumin Urine WBC (Auto) Digoxin Salicylates Acetaminophen Chest x-ray: image reviewed Allied health notes reviewed: RT
[2019-12-21] MEDS: ASPIRIN 81 MG TAB CHEW PO SCH (09:36)
[2019-12-21] MEDS: DIGOXIN 0.125 MG TAB PO SCH (09:36)
[2019-12-21] MEDS: FAMOTIDINE 20 MG TAB PO SCH ×2 (09:37→21:43)
[2019-12-21] MEDS: DESMOPRESSIN 0.1 MG TAB PO SCH ×2 (09:37→21:43)
[2019-12-21] MEDS: FOLIC ACID 1 MG TAB PO SCH (09:37)
[2019-12-21] MEDS: carvediloL 6.25 MG TAB PO SCH ×2 (09:37→21:43)
[2019-12-21] MEDS: cefTRIAXone/NS 2 GM/100 ML 2 GM/100 ML BAG IV SCH (09:39)
[2019-12-21] MEDS: POTASSIUM CHLORIDE 20 MEQ PACKET FEEDTUBE SCH (09:39)
--- NOTE | 2019-12-21 10:50 | Progress Note ---
Assessment and Plan / Acute hypoxic respiratory failure Likely from bilateral pneumonia and diastolic heart failure Patient intubated, placed on ventilatory support. critical care team consulted in ED. Patient is extubated today, continue nebulizer breathing treatment We will also do a swallow eval / Sepsis with shock cont IV antibiotic therapy, IV fluid resuscitation therapy, monitor urine output every shift, maintain mean arterial blood pressure greater than or equal to 65, s/p IV pressor support. / Suspected 2019-nCoV infection -ruled out with negative test Initiate COVID-19 protocol: Infectious disease team consulted in ED, COVID-19 PCR ordered in ED. / Diastolic CHF Preserved EF based on prior echocardiogram Monitor weight strict I's/O, daily weight, monitor urine output every shift, submental oxygen, blood pressure control. /JAGDEEP, due to vasomotor nephropathy, present on admission -Creatinine improving, continue IV fluid -Likely due to severe sepsis and hypotension /Hyponatremia, due to dehydration and sepsis -Continue IV fluid, monitor BMP / Diabetes type II Initiate tube feeding diet Sliding scale insulin, Accu-Chek, hypoglycemia protocol. / Hypothyroidism Synthroid therapy, supportive care. / Bilateral pneumonia Pneumonia protocol: IV antibiotic therapy, pulse oximetry, follow cultures /Cervical lymphadenopathy -Reactive versus infectious process versus malignancy -Need repeat scanning and further staging when medically more stable -Pulmonology and ID following / HTN (hypertension) -hold BP meds as patient is hypotensive Monitor blood pressure every shift, continue medical management. /History of obstructive sleep apnea -Patient currently on mechanical ventilation /Urinary retention, suspected in the ER -Patient having good urine output now, will hold any CT scan -Continue IV fluid / DVT prophylaxis SCD to bilateral lower extremities while in bed, prophylactic heparin The high probability of a clinically significant, sudden or life threatening deterioration of the [cardiac, renal, neuro, pulmonary, infectious disease] system(s) required my full and direct attention, intervention and personal ma nagement. The aggregate critical care time was [32] minutes. This time is in addition to time spent performing reported procedures but includes the following: [x] Data Review and interpretation [x] Patient assessment and monitoring of vital signs [x] Documentation [x] Medication orders and management 12/19/19: Negative for COVID-19, continue pressor and wean off as tolerated, continue IV antibiotic and follow cultures. 12/19: Weaned off from pressor, sodium 156>157>153 today, creatinine 1.4>1.2>1.0. Continue IV fluid. Wean off from vent as tolerated. Follow ID recommendation 12/20: Extubated today, continue to monitor in the ICU overnight if clinically stable with transfer out to IMCU/telemetry tomorrow a.m.. Sodium 149 today, continue IV fluid and monitor BMP. Swallow eval, PT OT eval Brief history: 59-year-old male past medical history diastolic CHF, OHS, HTN, DM 2, hypothyroidism admitted with confusion after being found by a neighbor. On ar rival patient was found to be lethargic, and in respiratory distress and hypoxic. Patient was intubated in the ER because of hypoxic respiratory failure. Also noted to be hypotensive, placed on pressor admitted to ICU. Patient is negative for COVID-19, being treated for bilateral pneumonia. Electrolytes improved with IV fluid, ID and critical care following. Chest x-ray: Left lower lobe airspace disease CT chest: 1. Patchy bilateral nodular and consolidative airspace opacities which are nonspecific but likely related to the reported history of Covid. 2. Multiple enlarged partially visualized left supraclavicular and lower cervical chain lymph nodes. While these are nonspecific and may be reactive, a neoplastic process is possible, recommend short interval follow-up after patient recovers from the acute episode. Physical exam: GENERAL: well-developed obese white male lying on bed appeared to be in no discomfort. HEENT: Normocephalic. Atraumatic. No conjunctival congestion or icterus. Patient has moist mucous membranes. NECK: Supple. Trachea midline. CHEST/LUNGS: Coarse breath sound auscultated bilaterally, HEART/CARDIOVASCULAR: Regular in rate and rhythm. S1 and S2 positive. ABDOMEN: Abdomen is soft, nontender. Patient has normal bowel sounds. SKIN: There is no rash. Warm and dry. NEURO: follows command, no focal deficits MUSCULOSKELETAL: No joint effusion or tenderness. EXTRIMITY: No edema, no cyanosis or clubbing. PSYCH: Cooperative Subjective Date of service: 12/21/19 Principal diagnosis: Ac. Hypoxemic Resp Failure; Septic Shock; Magdiel. PNA; PUI COVID-19; CHF; JOE Interval history: Patient seen and examined Patient off pressor, extubated this morning Having good urine output, Ordered for PT and swallow eval If clinically stable possible transfer to medical floor/IMCU tomorrow morning Objective - Constitutional Vitals: Vital Signs - 12hr 12/20/19 12/20/19 12/20/19 23:00 23:16 23:30 Temperature Pulse Rate 87 88 86 Pulse Rate [ Bilateral] Pulse Rate [ From Monitor] Respiratory 16 16 16 Rate Respiratory Rate [Bilateral ] Blood Pressure 135/96 100/47 135/96 O2 Sat by Pulse 100 100 100 Oximetry 12/20/19 12/20/19 12/20/19 23:34 23:37 23:42 Temperature 98.9 F Pulse Rate 91 H 87 Pulse Rate [ Bilateral] Pulse Rate [ From Monitor] Respiratory 17 Rate Respiratory Rate [Bilateral ] Blood Pressure 100/47 135/96 O2 Sat by Pulse 100 100 Oximetry 12/20/19 12/21/19 12/21/19 23:46 00:00 00:16 Temperature Pulse Rate 85 83 77 Pulse Rate [ Bilateral] Pulse Rate [ 83 From Monitor] Respiratory 16 16 16 Rate Respiratory Rate [Bilateral ] Blood Pressure 135/96 135/96 89/35 O2 Sat by Pulse 100 100 100 Oximetry 12/21/19 12/21/19 12/21/19 00:30 00:46 01:01 Temperature Pulse Rate 73 80 78 Pulse Rate [ Bilateral] Pulse Rate [ From Monitor] Respiratory 16 17 16 Rate Respiratory Rate [Bilateral ] Blood Pressure 83/45 99/28 98/47 O2 Sat by Pulse 100 100 Oximetry 12/21/19 12/21/19 12/21/19 01:16 01:30 01:46 Temperature Pulse Rate 76 77 74 Pulse Rate [ Bilateral] Pulse Rate [ From Monitor] Respiratory 16 17 16 Rate Respiratory Rate [Bilateral ] Blood Pressure 91/48 88/46 89/50 O2 Sat by Pulse 100 100 100 Oximetry 12/21/19 12/21/19 12/21/19 02:00 02:15 02:30 Temperature Pulse Rate 72 72 72 Pulse Rate [ Bilateral] Pulse Rate [ From Monitor] Respiratory 17 25 H 27 H Rate Respiratory Rate [Bilateral ] Blood Pressure 90/50 106/61 100/64 O2 Sat by Pulse 100 100 100 Oximetry 12/21/19 12/21/19 12/21/19 02:45 03:00 03:16 Temperature Pulse Rate 80 78 75 Pulse Rate [ Bilateral] Pulse Rate [ From Monitor] Respiratory 16 20 24 Rate Respiratory Rate [Bilateral ] Blood Pressure 99/69 110/65 123/68 O2 Sat by Pulse 100 100 100 Oximetry 12/21/19 12/21/19 12/21/19 03:30 03:37 03:46 Temperature 97.8 F Pulse Rate 77 80 Pulse Rate [ Bilateral] Pulse Rate [ From Monitor] Respiratory 27 H 18 Rate Respiratory Rate [Bilateral ] Blood Pressure 119/71 119/71 O2 Sat by Pulse 100 100 Oximetry 12/21/19 12/21/19 12/21/19 04:00 04:12 04:16 Temperature Pulse Rate 83 82 78 Pulse Rate [ Bilateral] Pulse Rate [ 83 From Monitor] Respiratory 22 24 Rate Respiratory Rate [Bilateral ] Blood Pressure 142/58 142/58 125/78 O2 Sat by Pulse 100 100 100 Oximetry 12/21/19 12/21/19 12/21/19 04:30 04:46 05:00 Temperature Pulse Rate 85 76 75 Pulse Rate [ Bilateral] Pulse Rate [ From Monitor] Respiratory 22 17 20 Rate Respiratory Rate [Bilateral ] Blood Pressure 125/78 109/69 115/66 O2 Sat by Pulse 100 100 100 Oximetry 12/21/19 12/21/19 12/21/19 05:16 05:30 05:46 Temperature Pulse Rate 76 76 77 Pulse Rate [ Bilateral] Pulse Rate [ From Monitor] Respiratory 22 24 29 H Rate Respiratory Rate [Bilateral ] Blood Pressure 110/65 110/65 104/62 O2 Sat by Pulse 100 100 100 Oximetry 12/21/19 12/21/19 12/21/19 06:00 06:16 06:30 Temperature Pulse Rate 75 79 73 Pulse Rate [ Bilateral] Pulse Rate [ From Monitor] Respiratory 19 22 19 Rate Respiratory Rate [Bilateral ] Blood Pressure 110/67 119/67 119/67 O2 Sat by Pulse 100 100 100 Oximetry 12/21/19 12/21/19 12/21/19 06:46 07:00 07:28 Temperature Pulse Rate 78 72 Pulse Rate [ 84 Bilateral] Pulse Rate [ From Monitor] Respiratory 32 H 17 Rate Respiratory 24 Rate [Bilateral ] Blood Pressure 113/61 113/61 O2 Sat by Pulse 100 100 Oximetry 12/21/19 12/21/19 12/21/19 08:00 09:36 09:37 Temperature Pulse Rate 72 76 76 Pulse Rate [ Bilateral] Pulse Rate [ From Monitor] Respiratory 23 Rate Respiratory Rate [Bilateral ] Blood Pressure 113/61 122/65 122/65 O2 Sat by Pulse 100 Oximetry - Labs CBC & Chem 7: 12/22/19 05:15 12/22/19 05:15 Labs: Abnormal lab results 12/20/19 12/20/19 12/21/19 Range/Units 12:26 18:20 00:20 Sodium (137-145) mmol/L Potassium (3.6-5.0) mmol/L Chloride (98-107) mmol/L Glucose (75-100) mg/dL POC Glucose 200 H 263 H 218 H (70-105) 12/21/19 12/21/19 Range/Units 04:38 05:26 Sodium 149 H (137-145) mmol/L Potassium 3.5 L (3.6-5.0) mmol/L Chloride 110.5 H (98-107) mmol/L Glucose 158 H (75-100) mg/dL POC Glucose 193 H (70-105) HEART Score - HEART Score Troponin: Troponin T 0.011 ng/mL (0.00-0.029) 12/18/19 14:45
--- NOTE | 2019-12-21 14:45 | Progress Note ---
Assessment and Plan Cultures: Blood culture 12/18/2019 pending A/P: 59-year-old male past medical history diastolic CHF, OHS, HTN, DM 2, hypothyroidism #Acute hypoxic respiratory failure: Given his normal procalcitonin, and normal white count a feel less likely that this is a bacterial pneumonia. Recommend repeat testing for COVID-19. I do not see the order in the chart, so I will order however if it is ordered and obtained please cancel my order. If negative again, will consider other viral etiology of pneumonia. #Diabetes: Tight glycemic control. #Multiple chronic comorbidities: High risk for poor COVID-19 outcome positive Recs: -Ordered repeat COVID testing -OK to remove from precautions if repeat testing negative. -Continue empiric ceftriaxone for now, afebrile and with a normal white count. Thank you for the consult, we will continue to follow. Sabrina Pinzon MD [facility] ([facility]) M: [phone] O: [phone] F: [phone] Subjective Date of service: 12/21/19 Principal diagnosis: Ac. Hypoxemic Resp Failure; Septic Shock; Magdiel. PNA; PUI COVID-19; CHF; JOE Interval history: Afebrile with a normal white count now. No change, remains intubated and sedated Imaging personally reviewed: Chest x-ray: Bilateral lower lobe pneumonia, worsened Objective - Exam Narrative Exam: Physical Exam: Constitutional: Intubated, sedated Head, Ears, Nose: Normocephalic, atraumatic. Eyes: Conjunctivae/corneas clear. No icterus. No ptosis. Neck: Intubated Oral: Intubated Cardiovascular: S1, S2 normal. Respiratory: Good air entry, clear to auscultation bilaterally GI: Soft, non-tender; bowel sounds normal. No peritoneal signs. Musculoskeletal: No pedal edema, no cyanosis. Skin: No rash or abscess Hem/Lymphatic: No palpable cervical or supraclavicular nodes. No lymphangitis Psych: Sedated Neurological: Sedated - Constitutional Vitals: Vital Signs Temp Pulse Resp BP Pulse Ox 97.8 F 86 16 103/55 94 12/21/19 03:37 12/21/19 13:30 12/21/19 13:30 12/21/19 13:00 12/21/19 13:00 Temperature -Last 24 Hours Temperature 97.8 F Temperature 98.9 F Temperature 97.8 F Temperature 98.5 F - Labs CBC & Chem 7: 12/20/19 04:45 12/21/19 04:38 Labs: Abnormal lab results 12/20/19 12/21/19 12/21/19 Range/Units 18:20 00:20 04:38 Sodium 149 H (137-145) mmol/L Potassium 3.5 L (3.6-5.0) mmol/L Chloride 110.5 H (98-107) mmol/L Glucose 158 H (75-100) mg/dL POC Glucose 263 H 218 H (70-105) 12/21/19 12/21/19 Range/Units 05:26 12:35 Sodium (137-145) mmol/L Potassium (3.6-5.0) mmol/L Chloride (98-107) mmol/L Glucose (75-100) mg/dL POC Glucose 193 H 193 H (70-105)
[2019-12-21] MEDS: INSULIN GLARGINE 100 UNITS/ML SUB-Q SCH (21:42)
[2019-12-22] MEDS: INSULIN LISPRO 100 UNIT/ML SUB-Q SCH ×4 (00:17→19:40)
--- NOTE | 2019-12-22 04:24 | XRay Report ---
CHEST 1 VIEW 12/22/2019 3:41 AM INDICATION / CLINICAL INFORMATION: follow up respiratory failure. COMPARISON: Chest x-ray 12/21/1999 FINDINGS: SUPPORT DEVICES: None. HEART / MEDIASTINUM: Moderate cardiomegaly. LUNGS / PLEURA: Right pleural effusion has resolved. Left pleural effusion and bilateral lower lobe p arenchymal disease, unchanged. No pneumothorax. ADDITIONAL FINDINGS: No significant additional findings. Signer Name: Richard Amaro MD Signed: 12/22/2019 4:20 AM Workstation Name: [id number]
[2019-12-22 05:40] LABS: Basophils % (Auto) 0.5 % (0.0-1.8); Eosinophils # (Auto) 0.3 K/mm3 (0.0-0.4); Hematocrit 34.7 % (35.5-45.6); Hemoglobin 10.3 gm/dl (11.8-15.2); Lymphocytes # (Auto) 0.5 K/mm3 (1.2-5.4); Mean Corpuscular HGB Conc 30 % (32-34); Mean Corpuscular Volume 84 fl (84-94); Monocytes # (Auto) 0.7 K/mm3 (0.0-0.8); Monocytes % (Auto) 12.3 % (0.0-7.3); Platelet Count 156 K/mm3 (140-440); Red Blood Count 4.11 M/mm3 (3.65-5.03); Red Cell Distribution Width 19.4 % (13.2-15.2)
[2019-12-22 05:50] LABS: BUN/Creatinine Ratio 13; Blood Urea Nitrogen 12 mg/dL (9-20); Calcium 8.8 mg/dL (8.4-10.2); Hemolysis Index 7
[2019-12-22] MEDS: LEVOTHYROXINE 88 MCG TAB PO SCH (06:38)
[2019-12-22] MEDS: POTASSIUM CHLORIDE 20 MEQ PACKET FEEDTUBE SCH (09:23)
[2019-12-22] MEDS: FOLIC ACID 1 MG TAB PO SCH ×2 (09:23→11:49)
[2019-12-22] MEDS: ASPIRIN 81 MG TAB CHEW PO SCH ×2 (09:23→11:49)
[2019-12-22] MEDS: cefTRIAXone/NS 2 GM/100 ML 2 GM/100 ML BAG IV SCH ×2 (09:23→11:50)
[2019-12-22] MEDS: FAMOTIDINE 20 MG TAB PO SCH ×3 (09:23→21:45)
[2019-12-22] MEDS: HEPARIN 5,000 UNIT/1 ML VIAL SUB-Q SCH ×2 (09:25→21:45)
[2019-12-22] MEDS: IPRATROPIUM/ALBUTEROL SULFATE 3 ML AMPUL.NEB IH SCH ×3 (09:32→19:24)
[2019-12-22] MEDS ORDERED: DEXTROSE 5% IN WATER 1,000 ML IV SCH (11:00)
--- NOTE | 2019-12-22 11:06 | Progress Note ---
Assessment and Plan Acute Hypoxemic Respiratory Failures/p extubation Severe Sepsis with Shock Bilateral Pneumonia Atelectasis COVID-19 NEGATIVE Morbid Obesity H/O CHF JOE Hypernatremia Start BIPAP qhs and q4 prn Incentive spirometry Hypotonic solution for hypernatremia, still awaiting [employer] evaluation Aspiration precatuions PT/OT, increase activity Fall precautions Complete Rocephin OK to transfer IMCU Discussed wtih RT adn RN - continue to wean supplemental oxygen for target O2 sats > 90% acutely - continue bronchodilators with pulmonary hygiene per RT - continue accuchecks with glycemic control per SSI (Target blood glucose of 140-180 mg/dL; avoid hypoglycemia) - continue to avoid benzodiazepines, reduce the possibility of delirium - Maintenance of sleep-wake cycle, avoid delirium - G.I. & VTE prophylaxis - PT/OT/ROM exercises - continue mobility protocols for pressure ulcer prevention - Monitor hemodynamics closely-episodes of asymptomatic bradycardia - continue other care per attending / other consultants Subjective Date of service: 12/22/19 Principal diagnosis: Ac. Hypoxemic Resp Failure; Septic Shock; Magdiel. PNA; PUI COVID-19; CHF; JOE Interval history: Patient is seen today for: Acute Hypoxemic Respiratory Failure; Severe Sepsis with Shock; Bilateral Pneumonia; Morbid Obesity; H/O CHF; JOE Seen and examined at bedside; 24hour events reviewed; nursing and respiratory care staff consulted; no adverse overnight events reported to me; resting peacefully in bed; extubated with ongoing episodes of desaturations requiring increasing FIO2 Failed bedside swallow evaluation yesterday, some confusion overnight, s/p fall Objective Vital Signs - 12hr 12/21/19 12/21/19 12/22/19 23:14 23:30 00:00 Temperature 96.7 F L Pulse Rate 82 82 Pulse Rate [ Bilateral] Pulse Rate [ 83 From Monitor] Pulse Rate [ Left Dorsalis Pedis] Pulse Rate [ Left Radial] Pulse Rate [ Right Dorsalis Pedis] Pulse Rate [ Right Radial] Respiratory 34 H 34 H Rate Respiratory Rate [Bilateral ] Blood Pressure 90/64 90/64 107/62 O2 Sat by Pulse 81 L 88 91 Oximetry 12/22/19 12/22/19 12/22/19 00:30 01:00 01:30 Temperature Pulse Rate 78 74 72 Pulse Rate [ Bilateral] Pulse Rate [ From Monitor] Pulse Rate [ Left Dorsalis Pedis] Pulse Rate [ Left Radial] Pulse Rate [ Right Dorsalis Pedis] Pulse Rate [ Right Radial] Respiratory 34 H 26 H 12 Rate Respiratory Rate [Bilateral ] Blood Pressure 108/54 105/54 101/47 O2 Sat by Pulse 94 95 91 Oximetry 12/22/19 12/22/19 12/22/19 02:00 02:30 03:00 Temperature Pulse Rate 66 63 69 Pulse Rate [ Bilateral] Pulse Rate [ From Monitor] Pulse Rate [ Left Dorsalis Pedis] Pulse Rate [ Left Radial] Pulse Rate [ Right Dorsalis Pedis] Pulse Rate [ Right Radial] Respiratory 21 25 H 20 Rate Respiratory Rate [Bilateral ] Blood Pressure 97/57 98/57 97/53 O2 Sat by Pulse 92 91 92 Oximetry 12/22/19 12/22/19 12/22/19 03:30 04:00 04:30 Temperature 96.4 F L Pulse Rate 59 L 74 70 Pulse Rate [ Bilateral] Pulse Rate [ 74 From Monitor] Pulse Rate [ Left Dorsalis Pedis] Pulse Rate [ Left Radial] Pulse Rate [ Right Dorsalis Pedis] Pulse Rate [ Right Radial] Respiratory 12 39 H 32 H Rate Respiratory Rate [Bilateral ] Blood Pressure 99/55 99/55 105/51 O2 Sat by Pulse 87 93 97 Oximetry 12/22/19 12/22/19 12/22/19 05:00 05:30 06:00 Temperature Pulse Rate 71 86 79 Pulse Rate [ Bilateral] Pulse Rate [ From Monitor] Pulse Rate [ Left Dorsalis Pedis] Pulse Rate [ Left Radial] Pulse Rate [ Right Dorsalis Pedis] Pulse Rate [ Right Radial] Respiratory 18 20 25 H Rate Respiratory Rate [Bilateral ] Blood Pressure 111/58 101/54 110/74 O2 Sat by Pulse 95 92 93 Oximetry 12/22/19 12/22/19 12/22/19 06:30 07:00 07:30 Temperature Pulse Rate 77 72 70 Pulse Rate [ Bilateral] Pulse Rate [ From Monitor] Pulse Rate [ Left Dorsalis Pedis] Pulse Rate [ Left Radial] Pulse Rate [ Right Dorsalis Pedis] Pulse Rate [ Right Radial] Respiratory 32 H 36 H 18 Rate Respiratory Rate [Bilateral ] Blood Pressure 105/56 94/53 103/34 O2 Sat by Pulse 87 97 95 Oximetry 12/22/19 12/22/19 12/22/19 08:00 08:30 09:00 Temperature 97.0 F L Pulse Rate 67 70 69 Pulse Rate [ Bilateral] Pulse Rate [ 70 From Monitor] Pulse Rate [ 70 Left Dorsalis Pedis] Pulse Rate [ 70 Left Radial] Pulse Rate [ 70 Right Dorsalis Pedis] Pulse Rate [ 70 Right Radial] Respiratory 32 H 29 H 34 H Rate Respiratory Rate [Bilateral ] Blood Pressure 100/53 97/55 97/55 O2 Sat by Pulse 95 95 96 Oximetry 12/22/19 12/22/19 12/22/19 09:30 09:32 09:35 Temperature Pulse Rate 66 Pulse Rate [ 64 Bilateral] Pulse Rate [ From Monitor] Pulse Rate [ Left Dorsalis Pedis] Pulse Rate [ Left Radial] Pulse Rate [ Right Dorsalis Pedis] Pulse Rate [ Right Radial] Respiratory 32 H Rate Respiratory 24 Rate [Bilateral ] Blood Pressure 97/55 O2 Sat by Pulse 91 96 Oximetry 12/22/19 12/22/19 10:00 10:30 Temperature Pulse Rate 63 65 Pulse Rate [ Bilateral] Pulse Rate [ From Monitor] Pulse Rate [ Left Dorsalis Pedis] Pulse Rate [ Left Radial] Pulse Rate [ Right Dorsalis Pedis] Pulse Rate [ Right Radial] Respiratory 33 H 15 Rate Respiratory Rate [Bilateral ] Blood Pressure 97/55 105/59 O2 Sat by Pulse 94 91 Oximetry Constitutional: no acute distress, alert Eyes: non-icteric ENT: oropharynx moist, other Neck: supple, no lymphadenopathy, no JVD Effort: mildly labored Ascultation: Bilateral: diminished breath sounds, rhonchi Percussion: Bilateral: not dull Cardiovascular: regular rate and rhythm, other (S1,S2) Gastrointestinal: hypoactive bowel sounds, soft, non-tender, other (distended) Integumentary: rash (stasis dermatyitis) Extremities: no cyanosis, pink and warm, pulses normal, no ischemia or pe techiae, edema (trace) Neurologic: normal mental status, non-focal exam, pupils equal and round, CN II- XII normal, motor strength normal and (obeys simple commands) Psychiatric: mood appropriate, affect normal CBC and BMP: 12/22/19 05:15 12/22/19 05:15 ABG, PT/INR, D-dimer: ABG ABG pH 7.407 pH Units (7.350-7.450) 12/20/19 03:35 ABG pCO2 45.0 mm Hg 12/20/19 03:35 ABG pO2 85.7 mm Hg (80.0-90.0) 12/20/19 03:35 ABG O2 Saturation 96.9 % (95.0-99.0) 12/20/19 03:35 PT/INR, D-dimer PT 14.0 Sec. (12.2-14.9) 12/18/19 14:45 INR 1.10 (0.87-1.13) 12/18/19 14:45 D-Dimer 534.45 ng/mlDDU (0-234) H 12/18/19 14:45 Abnormal lab findings: Abnormal Labs 12/18/19 12/18/19 12/18/19 12:23 14:45 14:45 Hgb 10.4 L Hct 35.2 L MCH 25 L MCHC 30 L RDW 18.8 H Lymph % (Auto) [place] % (Auto) 11.6 H Eos % (Auto) 4.8 H Lymph # [place] # 1.0 H Seg Neutrophils % D-Dimer ABG pO2 ABG HCO3 ABG O2 Saturation ABG Base Excess ABG Hemoglobin Oxyhemoglobin Sodium Potassium Chloride Carbon Dioxide BUN Glucose POC Glucose 328 H Lactic Acid Calcium AST ALT Lactate Dehydrogenase Total Creatine Kinase 40 L C-Reactive Protein Albumin Urine WBC (Auto) Digoxin Salicylates Acetaminophen 12/18/19 12/18/19 12/18/19 14:45 14:45 14:45 Hgb Hct MCH MCHC RDW Lymph % (Auto) [place] % (Auto) Eos % (Auto) Lymph # [place] # Seg Neutrophils % D-Dimer 534.45 H ABG pO2 ABG HCO3 ABG O2 Saturation ABG Base Excess ABG Hemoglobin Oxyhemoglobin Sodium 156 H Potassium Chloride 112.3 H Carbon Dioxide 31 H BUN 32 H Glucose 328 H POC Glucose Lactic Acid Calcium AST ALT Lactate Dehydrogenase 235 H Total Creatine Kinase C-Reactive Protein 8.50 H Albumin 3.6 L Urine WBC (Auto) Digoxin 0.3 L Salicylates < 0.3 L Acetaminophen 12/18/19 12/18/19 12/18/19 14:45 14:45 16:00 Hgb Hct MCH MCHC RDW Lymph % (Auto) [place] % (Auto) Eos % (Auto) Lymph # [place] # Seg Neutrophils % D-Dimer ABG pO2 69.8 L ABG HCO3 31.8 H ABG O2 Saturation ABG Base Excess 5.4 H ABG Hemoglobin 10.0 L Oxyhemoglobin 92.9 L Sodium Potassium Chloride Carbon Dioxide BUN Glucose 314 H POC Glucose Lactic Acid Calcium AST ALT Lactate Dehydrogenase 236 H Total Creatine Kinase C-Reactive Protein 8.40 H Albumin Urine WBC (Auto) Digoxin Salicylates Acetaminophen < 5.0 L 12/18/19 12/18/19 12/18/19 16:35 18:30 22:56 Hgb Hct MCH MCHC RDW Lymph % (Auto) [place] % (Auto) Eos % (Auto) Lymph # [place] # Seg Neutrophils % D-Dimer ABG pO2 ABG HCO3 ABG O2 Saturation ABG Base Excess ABG Hemoglobin Oxyhemoglobin Sodium Potassium Chloride Carbon Dioxide BUN Glucose POC Glucose 310 H 353 H Lactic Acid 2.50 H* Calcium AST ALT Lactate Dehydrogenase Total Creatine Kinase C-Reactive Protein Albumin Urine WBC (Auto) Digoxin Salicylates Acetaminophen 12/19/19 12/19/19 12/19/19 04:13 04:13 06:00 Hgb 10.0 L Hct 34.2 L MCH 25 L MCHC 29 L RDW 19.0 H Lymph % (Auto) [place] % (Auto) 10.1 H Eos % (Auto) Lymph # [place] # 1.1 H Seg Neutrophils % 71.8 H D-Dimer ABG pO2 186.5 H ABG HCO3 27.8 H ABG O2 Saturation 99.1 H ABG Base Excess ABG Hemoglobin 10.4 L Oxyhemoglobin Sodium 157 H Potassium Chloride 119.1 H Carbon Dioxide BUN 26 H Glucose 302 H POC Glucose Lactic Acid Calcium 7.9 L AST 85 H ALT 61 H Lactate Dehydrogenase Total Creatine Kinase C-Reactive Protein Albumin 3.0 L Urine WBC (Auto) Digoxin Salicylates Acetaminophen 12/19/19 12/19/19 12/19/19 08:30 11:55 16:50 Hgb Hct MCH MCHC RDW Lymph % (Auto) [place] % (Auto) Eos % (Auto) Lymph # [place] # Seg Neutrophils % D-Dimer ABG pO2 ABG HCO3 ABG O2 Saturation ABG Base Excess ABG Hemoglobin Oxyhemoglobin Sodium Potassium Chloride Carbon Dioxide BUN Glucose POC Glucose 264 H 251 H Lactic Acid Calcium AST ALT Lactate Dehydrogenase Total Creatine Kinase C-Reactive Protein Albumin Urine WBC (Auto) 7.0 H Digoxin Salicylates Acetaminophen 12/19/19 12/19/19 12/20/19 17:41 23:42 03:35 Hgb Hct MCH MCHC RDW Lymph % (Auto) [place] % (Auto) Eos % (Auto) Lymph # [place] # Seg Neutrophils % D-Dimer ABG pO2 ABG HCO3 27.7 H ABG O2 Saturation ABG Base Excess ABG Hemoglobin 11.6 L Oxyhemoglobin 94.9 L Sodium Potassium Chloride Carbon Dioxide BUN Glucose POC Glucose 180 H 205 H Lactic Acid Calcium AST ALT Lactate Dehydrogenase Total Creatine Kinase C-Reactive Protein Albumin Urine WBC (Auto) Digoxin Salicylates Acetaminophen 12/20/19 12/20/19 12/20/19 04:45 04:45 05:27 Hgb 9.4 L Hct 31.4 L MCH 25 L MCHC 30 L RDW 19.4 H Lymph % (Auto) [place] % (Auto) 10.2 H Eos % (Auto) 6.0 H Lymph # 0.9 L [place] # Seg Neutrophils % D-Dimer ABG pO2 ABG HCO3 ABG O2 Saturation ABG Base Excess ABG Hemoglobin Oxyhemoglobin Sodium 153 H Potassium Chloride 114.6 H Carbon Dioxide BUN Glucose 170 H POC Glucose 188 H Lactic Acid Calcium 7.9 L AST ALT Lactate Dehydrogenase Total Creatine Kinase C-Reactive Protein Albumin Urine WBC (Auto) Digoxin Salicylates Acetaminophen 12/20/19 12/20/19 12/21/19 12:26 18:20 00:20 Hgb Hct MCH MCHC RDW Lymph % (Auto) [place] % (Auto) Eos % (Auto) Lymph # [place] # Seg Neutrophils % D-Dimer ABG pO2 ABG HCO3 ABG O2 Saturation ABG Base Excess ABG Hemoglobin Oxyhemoglobin Sodium Potassium Chloride Carbon Dioxide BUN Glucose POC Glucose 200 H 263 H 218 H Lactic Acid Calcium AST ALT Lactate Dehydrogenase Total Creatine Kinase C-Reactive Protein Albumin Urine WBC (Auto) Digoxin Salicylates Acetaminophen 12/21/19 12/21/19 12/21/19 04:38 05:26 12:35 Hgb Hct MCH MCHC RDW Lymph % (Auto) [place] % (Auto) Eos % (Auto) Lymph # [place] # Seg Neutrophils % D-Dimer ABG pO2 ABG HCO3 ABG O2 Saturation ABG Base Excess ABG Hemoglobin Oxyhemoglobin Sodium 149 H Potassium 3.5 L Chloride 110.5 H Carbon Dioxide BUN Glucose 158 H POC Glucose 193 H 193 H Lactic Acid Calcium AST ALT Lactate Dehydrogenase Total Creatine Kinase C-Reactive Protein Albumin Urine WBC (Auto) Digoxin Salicylates Acetaminophen 12/21/19 12/22/19 12/22/19 18:29 00:03 05:15 Hgb 10.3 L Hct 34.7 L MCH 25 L MCHC 30 L RDW 19.4 H Lymph % (Auto) 9.0 L [place] % (Auto) 12.3 H Eos % (Auto) 5.0 H Lymph # 0.5 L [place] # Seg Neutrophils % 73.2 H D-Dimer ABG pO2 ABG HCO3 ABG O2 Saturation ABG Base Excess ABG Hemoglobin Oxyhemoglobin Sodium Potassium Chloride Carbon Dioxide BUN Glucose POC Glucose 186 H 143 H Lactic Acid Calcium AST ALT Lactate Dehydrogenase Total Creatine Kinase C-Reactive Protein Albumin Urine WBC (Auto) Digoxin Salicylates Acetaminophen 12/22/19 12/22/19 05:15 06:02 Hgb Hct MCH MCHC RDW Lymph % (Auto) [place] % (Auto) Eos % (Auto) Lymph # [place] # Seg Neutrophils % D-Dimer ABG pO2 ABG HCO3 ABG O2 Saturation ABG Base Excess ABG Hemoglobin Oxyhemoglobin Sodium 152 H Potassium Chloride 113.5 H Carbon Dioxide BUN Glucose 126 H POC Glucose 144 H Lactic Acid Calcium AST ALT Lactate Dehydrogenase Total Creatine Kinase C-Reactive Protein Albumin Urine WBC (Auto) Digoxin Salicylates Acetaminophen Chest x-ray: image reviewed (Bilateral lower lobe infiltrates; Plate atelectsis right middle lobe, small pleural effusion left lung) Allied health notes reviewed: RT
[2019-12-22] MEDS ORDERED: SODIUM CHLORIDE 0.9% 500 ML 500 ML ONE (11:29)
--- NOTE | 2019-12-22 17:28 | Progress Note ---
Assessment and Plan / Acute hypoxic respiratory failure Likely from bilateral pneumonia and diastolic heart failure Patient intubated, placed on ventilatory support. critical care team consulted in ED. Patient is extubated, continue nebulizer breathing treatment We will also do a swallow eval / Sepsis with shock cont IV antibiotic therapy, IV fluid resuscitation therapy, monitor urine output every shift, maintain mean arterial blood pressure greater than or equal to 65, s/p IV pressor support. / Suspected 2019-nCoV infection -ruled out with negative test Initiate COVID-19 protocol: Infectious disease team consulted in ED, COVID-19 PCR ordered in ED. / Diastolic CHF Preserved EF based on prior echocardiogram Monitor weight strict I's/O, daily weight, monitor urine output every shift, submental oxygen, blood pressure control. /JAGDEEP, due to vasomotor nephropathy, present on admission -Creatinine improving, continue IV fluid -Likely due to severe sepsis and hypotension /Hyponatremia, due to dehydration and sepsis -Continue IV fluid, monitor BMP / Diabetes type II Initiate tube feeding diet Sliding scale insulin, Accu-Chek, hypoglycemia protocol. / Hypothyroidism Synthroid therapy, supportive care. / Bilateral pneumonia Pneumonia protocol: IV antibiotic therapy, pulse oximetry, follow cultures /Cervical lymphadenopathy -Reactive versus infectious process versus malignancy -Need repeat scanning and further staging when medically more stable -Pulmonology and ID following / HTN (hypertension) -hold BP meds as patient is hypotensive Monitor blood pressure every shift, continue medical management. /History of obstructive sleep apnea -Patient currently on mechanical ventilation /Urinary retention, suspected in the ER -Patient having good urine output now, will hold any CT scan -Continue IV fluid / DVT prophylaxis SCD to bilateral lower extremities while in bed, prophylactic heparin 12/19/19: Negative for COVID-19, continue pressor and wean off as tolerated, continue IV antibiotic and follow cultures. 12/19: Weaned off from pressor, sodium 156>157>153 today, creatinine 1.4>1.2>1.0. Continue IV fluid. Wean off from vent as tolerated. Follow ID recommendation 12/20: Extubated today, continue to monitor in the ICU overnight if clinically stable with transfer out to [facility]/telemetry tomorrow a.m.. Sodium 149 today, continue IV fluid and monitor BMP. Swallow eval, PT OT eval 12/21: transfer to [facility], start on gentle hydration. mechanical soft diet Brief history: 59-year-old male past medical history diastolic CHF, OHS, HTN, DM 2, hypothyroidism admitted with confusion after being found by a neighbor. On arrival patient was found to be lethargic, and in respiratory distress and hypoxic. Patient was intubated in the ER because of hypoxic respiratory failure. Also noted to be hypotensive, placed on pressor admitted to ICU. Patient is negative for COVID-19, being treated for bilateral pneumonia. Electrolytes improved with IV fluid, ID and critical care following. Chest x-ray: Left lower lobe airspace disease CT chest: 1. Patchy bilateral nodular and consolidative airspace opacities which are nonspecific but likely related to the reported history of Covid. 2. Multiple enlarged partially visualized left supraclavicular and lower cervical chain lymph nodes. While these are nonspecific and may be reactive, a neoplastic process is possible, recommend short interval follow-up after patient recovers from the acute episode. Physical exam: GENERAL: well-developed obese white male lying on bed appeared to be in no discomfort. HEENT: Normocephalic. Atraumatic. No conjunctival congestion or icterus. Patient has moist mucous membranes. NECK: Supple. Trachea midline. CHEST/LUNGS: Coarse breath sound auscultated bilaterally, HEART/CARDIOVASCULAR: Regular in rate and rhythm. S1 and S2 positive. ABDOMEN: Abdomen is soft, nontender. Patient has normal bowel sounds. SKIN: There is no rash. Warm and dry. NEURO: follows command, no focal deficits MUSCULOSKELETAL: No joint effusion or tenderness. EXTRIMITY: No edema, no cyanosis or clubbing. PSYCH: Cooperative Subjective Date of service: 12/22/19 Principal diagnosis: Ac. Hypoxemic Resp Failure; Septic Shock; Magdiel. PNA; PUI COVID-19; CHF; JOE Interval history: Patient seen and examined Having good urine output, passes swallow eval Ordered for PT and transfer to [facility] Objective - Constitutional Vitals: Vital Signs - 12hr 12/22/19 12/22/19 12/22/19 05:30 06:00 06:30 Temperature Pulse Rate 86 79 77 Pulse Rate [ Bilateral] Pulse Rate [ From Monitor] Pulse Rate [ Left Dorsalis Pedis] Pulse Rate [ Left Radial] Pulse Rate [ Right Dorsalis Pedis] Pulse Rate [ Right Radial] Respiratory 20 25 H 32 H Rate Respiratory Rate [Bilateral ] Blood Pressure 101/54 110/74 105/56 O2 Sat by Pulse 92 93 87 Oximetry 12/22/19 12/22/19 12/22/19 07:00 07:30 08:00 Temperature 97.0 F L Pulse Rate 72 70 67 Pulse Rate [ Bilateral] Pulse Rate [ 70 From Monitor] Pulse Rate [ 70 Left Dorsalis Pedis] Pulse Rate [ 70 Left Radial] Pulse Rate [ 70 Right Dorsalis Pedis] Pulse Rate [ 70 Right Radial] Respiratory 36 H 18 32 H Rate Respiratory Rate [Bilateral ] Blood Pressure 94/53 103/34 100/53 O2 Sat by Pulse 97 95 95 Oximetry 12/22/19 12/22/19 12/22/19 08:30 09:00 09:30 Temperature Pulse Rate 70 69 66 Pulse Rate [ Bilateral] Pulse Rate [ From Monitor] Pulse Rate [ Left Dorsalis Pedis] Pulse Rate [ Left Radial] Pulse Rate [ Right Dorsalis Pedis] Pulse Rate [ Right Radial] Respiratory 29 H 34 H 32 H Rate Respiratory Rate [Bilateral ] Blood Pressure 97/55 97/55 97/55 O2 Sat by Pulse 95 96 91 Oximetry 12/22/19 12/22/19 12/22/19 09:32 09:35 10:00 Temperature Pulse Rate 63 Pulse Rate [ 64 Bilateral] Pulse Rate [ From Monitor] Pulse Rate [ Left Dorsalis Pedis] Pulse Rate [ Left Radial] Pulse Rate [ Right Dorsalis Pedis] Pulse Rate [ Right Radial] Respiratory 33 H Rate Respiratory 24 Rate [Bilateral ] Blood Pressure 97/55 O2 Sat by Pulse 96 94 Oximetry 12/22/19 12/22/19 12/22/19 10:30 11:00 11:30 Temperature Pulse Rate 65 73 Pulse Rate [ Bilateral] Pulse Rate [ From Monitor] Pulse Rate [ Left Dorsalis Pedis] Pulse Rate [ Left Radial] Pulse Rate [ Right Dorsalis Pedis] Pulse Rate [ Right Radial] Respiratory 15 16 Rate Respiratory Rate [Bilateral ] Blood Pressure 105/59 111/63 110/69 O2 Sat by Pulse 91 93 97 Oximetry 12/22/19 12/22/19 12/22/19 12:00 12:30 13:00 Temperature 96.9 F L Pulse Rate 64 70 72 Pulse Rate [ Bilateral] Pulse Rate [ 66 From Monitor] Pulse Rate [ 66 Left Dorsalis Pedis] Pulse Rate [ 66 Left Radial] Pulse Rate [ 66 Right Dorsalis Pedis] Pulse Rate [ 66 Right Radial] Respiratory 22 26 H 25 H Rate Respiratory Rate [Bilateral ] Blood Pressure 110/69 114/63 117/69 O2 Sat by Pulse 98 96 97 Oximetry 12/22/19 12/22/19 12/22/19 14:00 15:00 16:00 Temperature 97.9 F Pulse Rate 64 58 L 61 Pulse Rate [ Bilateral] Pulse Rate [ 69 From Monitor] Pulse Rate [ Left Dorsalis Pedis] Pulse Rate [ Left Radial] Pulse Rate [ Right Dorsalis Pedis] Pulse Rate [ Right Radial] Respiratory 14 32 H 32 H Rate Respiratory Rate [Bilateral ] Blood Pressure 105/62 101/61 112/69 O2 Sat by Pulse 96 96 95 Oximetry - Labs CBC & Chem 7: 12/22/19 05:15 12/23/19 16:40 Labs: Abnormal lab results 12/21/19 12/22/19 12/22/19 Range/Units 18:29 00:03 05:15 Hgb 10.3 L (11.8-15.2) gm/dl Hct 34.7 L (35.5-45.6) % MCH 25 L (28-32) pg MCHC 30 L (32-34) % RDW 19.4 H (13.2-15.2) % Lymph % (Auto) 9.0 L (13.4-35.0) % [place] % (Auto) 12.3 H (0.0-7.3) % Eos % (Auto) 5.0 H (0.0-4.3) % Lymph # 0.5 L (1.2-5.4) K/mm3 Seg Neutrophils % 73.2 H (40.0-70.0) % Sodium (137-145) mmol/L Chloride (98-107) mmol/L Glucose (75-100) mg/dL POC Glucose 186 H 143 H (70-105) 12/22/19 12/22/19 12/22/19 Range/Units 05:15 06:02 12:13 Hgb (11.8-15.2) gm/dl Hct (35.5-45.6) % MCH (28-32) pg MCHC (32-34) % RDW (13.2-15.2) % Lymph % (Auto) (13.4-35.0) % [place] % (Auto) (0.0-7.3) % Eos % (Auto) (0.0-4.3) % Lymph # (1.2-5.4) K/mm3 Seg Neutrophils % (40.0-70.0) % Sodium 152 H (137-145) mmol/L Chloride 113.5 H (98-107) mmol/L Glucose 126 H (75-100) mg/dL POC Glucose 144 H 159 H (70-105) HEART Score - HEART Score Troponin: Troponin T 0.011 ng/mL (0.00-0.029) 12/18/19 14:45
--- NOTE | 2019-12-22 17:32 | Progress Note ---
Assessment and Plan Cultures: Blood culture 12/18/2019 pending A/P: 59-year-old male past medical history diastolic CHF, OHS, HTN, DM 2, hypothyroidism #Acute hypoxic respiratory failure: Given his normal procalcitonin, and normal white count a feel less likely that this is a bacterial pneumonia. He did consider viral etiology of acute hypoxic respiratory failure, but is improving now. #Diabetes: Tight glycemic control. #Multiple chronic comorbidities Recs: -OK to remove from precautions if repeat testing negative. -Continue empiric ceftriaxone for now, would complete 7 total days. Thank you for the consult, we will continue to follow. Sabrina Pinzon MD [facility] ([facility]) M: [phone] O: [phone] F: [phone] Subjective Date of service: 12/22/19 Principal diagnosis: Ac. Hypoxemic Resp Failure; Septic Shock; Magdiel. PNA; PUI COVID-19; CHF; JOE Interval history: Afebrile normal white count. COVID-19 negative x2 Objective - Exam Narrative Exam: Physical Exam: Constitutional: On nasal cannula, alert Head, Ears, Nose: Normocephalic, atraumatic. Eyes: Conjunctivae/corneas clear. No icterus. No ptosis. Cardiovascular: S1, S2 normal. Respiratory: Good air entry, clear to auscultation bilaterally GI: Soft, non-tender; bowel sounds normal. No peritoneal signs. Musculoskeletal: No pedal edema, no cyanosis. Skin: No rash or abscess Hem/Lymphatic: No palpable cervical or supraclavicular nodes. No lymphangitis Neurological: No gross abnormality - Constitutional Vitals: Vital Signs Temp Pulse Resp BP Pulse Ox 97.9 F 69 32 H 112/69 95 12/22/19 16:00 12/22/19 16:00 12/22/19 16:00 12/22/19 16:00 12/22/19 16:00 Temperature -Last 24 Hours Temperature 97.9 F Temperature 96.9 F Temperature 96.9 F Temperature 97.0 F Temperature 96.4 F Temperature 96.7 F Temperature 97.0 F - Labs CBC & Chem 7: 12/22/19 05:15 12/22/19 05:15 Labs: Abnormal lab results 12/21/19 12/22/19 12/22/19 Range/Units 18:29 00:03 05:15 Hgb 10.3 L (11.8-15.2) gm/dl Hct 34.7 L (35.5-45.6) % MCH 25 L (28-32) pg MCHC 30 L (32-34) % RDW 19.4 H (13.2-15.2) % Lymph % (Auto) 9.0 L (13.4-35.0) % [place] % (Auto) 12.3 H (0.0-7.3) % Eos % (Auto) 5.0 H (0.0-4.3) % Lymph # 0.5 L (1.2-5.4) K/mm3 Seg Neutrophils % 73.2 H (40.0-70.0) % Sodium (137-145) mmol/L Chloride (98-107) mmol/L Glucose (75-100) mg/dL POC Glucose 186 H 143 H (70-105) 12/22/19 12/22/19 12/22/19 Range/Units 05:15 06:02 12:13 Hgb (11.8-15.2) gm/dl Hct (35.5-45.6) % MCH (28-32) pg MCHC (32-34) % RDW (13.2-15.2) % Lymph % (Auto) (13.4-35.0) % [place] % (Auto) (0.0-7.3) % Eos % (Auto) (0.0-4.3) % Lymph # (1.2-5.4) K/mm3 Seg Neutrophils % (40.0-70.0) % Sodium 152 H (137-145) mmol/L Chloride 113.5 H (98-107) mmol/L Glucose 126 H (75-100) mg/dL POC Glucose 144 H 159 H (70-105)
[2019-12-22] MEDS: INSULIN GLARGINE 100 UNITS/ML SUB-Q SCH (21:45)
[2019-12-23] MEDS: INSULIN LISPRO 100 UNIT/ML SUB-Q SCH ×4 (01:58→19:43)
[2019-12-23] MEDS ORDERED: HALOPERIDOL LACTATE 5 MG/1 ML INJ ONE (03:11)
[2019-12-23] MEDS ORDERED: HALOPERIDOL LACTATE 5 MG/1 ML INJ IM ONE (04:30)
[2019-12-23] MEDS: LEVOTHYROXINE 88 MCG TAB PO SCH (06:11)
[2019-12-23] MEDS: IPRATROPIUM/ALBUTEROL SULFATE 3 ML AMPUL.NEB IH SCH ×3 (08:58→20:02)
[2019-12-23] MEDS: cefTRIAXone/NS 2 GM/100 ML 2 GM/100 ML BAG IV SCH (11:44)
[2019-12-23] MEDS: FAMOTIDINE 20 MG TAB PO SCH ×2 (11:44→22:47)
[2019-12-23] MEDS: FOLIC ACID 1 MG TAB PO SCH (11:45)
[2019-12-23] MEDS: POTASSIUM CHLORIDE 20 MEQ PACKET FEEDTUBE SCH (11:45)
[2019-12-23] MEDS: ASPIRIN 81 MG TAB CHEW PO SCH (11:45)
[2019-12-23] MEDS: HEPARIN 5,000 UNIT/1 ML VIAL SUB-Q SCH ×2 (11:45→22:46)
--- NOTE | 2019-12-23 12:35 | Progress Note ---
Assessment and Plan Acute Hypoxemic Respiratory Failure Severe Sepsis with Shock Bilateral Pneumonia PUI COVID-19 Morbid Obesity H/O CHF JOE - ABG documents hypercapnic acidosis also and now placed on continuous BIPAP - repeat ABG in am - follow repeat COVID-19 testing - continue to wean supplemental oxygen for target O2 sat's > 92% acutely - continue bronchodilators with pulmonary hygiene per RT - continue accuchecks with glycemic control per SSI (While critically ill target blood glucose of 140-180 mg/dL; avoid hypoglycemia) - continue to avoid benzodiazepine's, reduce the possibility of delirium - complete AB's per ID rec's (Rocephin) - prn analgesia per pain score - Maintenance of sleep-wake cycle, avoid delirium - enteral nutritional support at goal rate as tolerated - G.I. & VTE prophylaxis - PT/OT/ROM exercises - continue mobility protocols for pressure ulcer prophylaxis - Monitor hemodynamics closely - continue other care per attending / other consultants - discharge planning ongoing concurrently .... Re-evaluate in am & prn CONDITION: CRITICAL PROGNOSIS: GUARDED CODE STATUS: FULL CODE The high probability of a clinically significant, sudden or life-threatening deterioration of the [respiratory, cardiovascular, GI & neurologic] system(s) required my full and direct attention, intervention and personal management. The aggregate critical care time was [32] minutes without overlap. Time includes spent on; [x] Data Review and interpretation [x] Patient assessment and monitoring of vital signs [x] Documentation [x] Medication orders and management Subjective Date of service: 12/23/19 Principal diagnosis: Ac. Hypoxemic Resp Failure; Septic Shock; Magdiel. PNA; PUI COVID-19; CHF; JOE Interval history: Patient is seen today for: Acute Hypoxemic Respiratory Failure; Severe Sepsis with Shock; Bilateral Pneumonia; PUI COVID-19; Morbid Obesity; H/O CHF; JOE Seen and examined at bedside; 24hour events reviewed; nursing and respiratory care staff consulted; no adverse overnight events reported to me; resting peacefully in bed; extubated now but remains on supplemental oxygen; No N/V/F/C; he is a little drowsy though; no emesis or overt aspiration Objective Vital Signs - 12hr 12/23/19 12/23/19 12/23/19 01:00 02:00 02:25 Temperature Pulse Rate 69 77 92 H Pulse Rate [ Bilateral] Pulse Rate [ From Monitor] Respiratory 20 35 H 44 H Rate Respiratory Rate [Bilateral ] Blood Pressure 128/68 125/70 123/74 O2 Sat by Pulse 90 90 95 Oximetry 12/23/19 12/23/19 12/23/19 03:00 04:00 05:00 Temperature 97.8 F Pulse Rate 93 H 84 92 H Pulse Rate [ Bilateral] Pulse Rate [ 94 H From Monitor] Respiratory 21 41 H 50 H Rate Respiratory Rate [Bilateral ] Blood Pressure 123/74 112/80 126/67 O2 Sat by Pulse 85 93 Oximetry 12/23/19 12/23/19 12/23/19 06:00 07:00 08:00 Temperature 97.9 F Pulse Rate 92 H 88 82 Pulse Rate [ Bilateral] Pulse Rate [ From Monitor] Respiratory 25 H 52 H 42 H Rate Respiratory Rate [Bilateral ] Blood Pressure 119/61 119/61 122/66 O2 Sat by Pulse 84 97 96 Oximetry 12/23/19 12/23/19 12/23/19 08:58 09:00 09:36 Temperature Pulse Rate 78 Pulse Rate [ 93 H Bilateral] Pulse Rate [ From Monitor] Respiratory 37 H Rate Respiratory 32 H Rate [Bilateral ] Blood Pressure 120/60 O2 Sat by Pulse 95 97 Oximetry 12/23/19 10:00 Temperature Pulse Rate 86 Pulse Rate [ Bilateral] Pulse Rate [ From Monitor] Respiratory 52 H Rate Respiratory Rate [Bilateral ] Blood Pressure 104/54 O2 Sat by Pulse 92 Oximetry Constitutional: no acute distress, alert Eyes: non-icteric ENT: oropharynx moist, other Neck: supple, no lymphadenopathy, no JVD Effort: mildly labored Ascultation: Bilateral: diminished breath sounds, rhonchi Percussion: Bilateral: not dull Cardiovascular: regular rate and rhythm, other (S1,S2) Gastrointestinal: hypoactive bowel sounds, soft, non-tender, other (distended) Integumentary: rash (stasis dermatyitis) Extremities: no cyanosis, pink and warm, pulses normal, no ischemia or petechiae, edema (trace) Neurologic: normal mental status, non-focal exam, pupils equal and round, CN II- XII normal, motor strength normal and (obeys simple commands) Psychiatric: mood appropriate, affect normal CBC and BMP: 12/24/19 04:53 12/24/19 09:44 ABG, PT/INR, D-dimer: ABG ABG pH 7.407 pH Units (7.350-7.450) 12/20/19 03:35 ABG pCO2 45.0 mm Hg 12/20/19 03:35 ABG pO2 85.7 mm Hg (80.0-90.0) 12/20/19 03:35 ABG O2 Saturation 96.9 % (95.0-99.0) 12/20/19 03:35 PT/INR, D-dimer PT 14.0 Sec. (12.2-14.9) 12/18/19 14:45 INR 1.10 (0.87-1.13) 12/18/19 14:45 D-Dimer 534.45 ng/mlDDU (0-234) H 12/18/19 14:45 Abnormal lab findings: Abnormal Labs 12/18/19 12/18/19 12/18/19 12:23 14:45 14:45 Hgb 10.4 L Hct 35.2 L MCH 25 L MCHC 30 L RDW 18.8 H Lymph % (Auto) [place] % (Auto) 11.6 H Eos % (Auto) 4.8 H Lymph # [place] # 1.0 H Seg Neutrophils % D-Dimer ABG pO2 ABG HCO3 ABG O2 Saturation ABG Base Excess ABG Hemoglobin Oxyhemoglobin Sodium Potassium Chloride Carbon Dioxide BUN Glucose POC Glucose 328 H Lactic Acid Calcium AST ALT Lactate Dehydrogenase Total Creatine Kinase 40 L C-Reactive Protein Albumin Urine WBC (Auto) Digoxin Salicylates Acetaminophen 12/18/19 12/18/19 12/18/19 14:45 14:45 14:45 Hgb Hct MCH MCHC RDW Lymph % (Auto) [place] % (Auto) Eos % (Auto) Lymph # [place] # Seg Neutrophils % D-Dimer 534.45 H ABG pO2 ABG HCO3 ABG O2 Saturation ABG Base Excess ABG Hemoglobin Oxyhemoglobin Sodium 156 H Potassium Chloride 112.3 H Carbon Dioxide 31 H BUN 32 H Glucose 328 H POC Glucose Lactic Acid Calcium AST ALT Lactate Dehydrogenase 235 H Total Creatine Kinase C-Reactive Protein 8.50 H Albumin 3.6 L Urine WBC (Auto) Digoxin 0.3 L Salicylates < 0.3 L Acetaminophen 12/18/19 12/18/19 12/18/19 14:45 14:45 16:00 Hgb Hct MCH MCHC RDW Lymph % (Auto) [place] % (Auto) Eos % (Auto) Lymph # [place] # Seg Neutrophils % D-Dimer ABG pO2 69.8 L ABG HCO3 31.8 H ABG O2 Saturation ABG Base Excess 5.4 H ABG Hemoglobin 10.0 L Oxyhemoglobin 92.9 L Sodium Potassium Chloride Carbon Dioxide BUN Glucose 314 H POC Glucose Lactic Acid Calcium AST ALT Lactate Dehydrogenase 236 H Total Creatine Kinase C-Reactive Protein 8.40 H Albumin Urine WBC (Auto) Digoxin Salicylates Acetaminophen < 5.0 L 12/18/19 12/18/19 12/18/19 16:35 18:30 22:56 Hgb Hct MCH MCHC RDW Lymph % (Auto) [place] % (Auto) Eos % (Auto) Lymph # [place] # Seg Neutrophils % D-Dimer ABG pO2 ABG HCO3 ABG O2 Saturation ABG Base Excess ABG Hemoglobin Oxyhemoglobin Sodium Potassium Chloride Carbon Dioxide BUN Glucose POC Glucose 310 H 353 H Lactic Acid 2.50 H* Calcium AST ALT Lactate Dehydrogenase Total Creatine Kinase C-Reactive Protein Albumin Urine WBC (Auto) Digoxin Salicylates Acetaminophen 12/19/19 12/19/19 12/19/19 04:13 04:13 06:00 Hgb 10.0 L Hct 34.2 L MCH 25 L MCHC 29 L RDW 19.0 H Lymph % (Auto) [place] % (Auto) 10.1 H Eos % (Auto) Lymph # [place] # 1.1 H Seg Neutrophils % 71.8 H D-Dimer ABG pO2 186.5 H ABG HCO3 27.8 H ABG O2 Saturation 99.1 H ABG Base Excess ABG Hemoglobin 10.4 L Oxyhemoglobin Sodium 157 H Potassium Chloride 119.1 H Carbon Dioxide BUN 26 H Glucose 302 H POC Glucose Lactic Acid Calcium 7.9 L AST 85 H ALT 61 H Lactate Dehydrogenase Total Creatine Kinase C-Reactive Protein Albumin 3.0 L Urine WBC (Auto) Digoxin Salicylates Acetaminophen 12/19/19 12/19/19 12/19/19 08:30 11:55 16:50 Hgb Hct MCH MCHC RDW Lymph % (Auto) [place] % (Auto) Eos % (Auto) Lymph # [place] # Seg Neutrophils % D-Dimer ABG pO2 ABG HCO3 ABG O2 Saturation ABG Base Excess ABG Hemoglobin Oxyhemoglobin Sodium Potassium Chloride Carbon Dioxide BUN Glucose POC Glucose 264 H 251 H Lactic Acid Calcium AST ALT Lactate Dehydrogenase Total Creatine Kinase C-Reactive Protein Albumin Urine WBC (Auto) 7.0 H Digoxin Salicylates Acetaminophen 12/19/19 12/19/19 12/20/19 17:41 23:42 03:35 Hgb Hct MCH MCHC RDW Lymph % (Auto) [place] % (Auto) Eos % (Auto) Lymph # [place] # Seg Neutrophils % D-Dimer ABG pO2 ABG HCO3 27.7 H ABG O2 Saturation ABG Base Excess ABG Hemoglobin 11.6 L Oxyhemoglobin 94.9 L Sodium Potassium Chloride Carbon Dioxide BUN Glucose POC Glucose 180 H 205 H Lactic Acid Calcium AST ALT Lactate Dehydrogenase Total Creatine Kinase C-Reactive Protein Albumin Urine WBC (Auto) Digoxin Salicylates Acetaminophen 12/20/19 12/20/19 12/20/19 04:45 04:45 05:27 Hgb 9.4 L Hct 31.4 L MCH 25 L MCHC 30 L RDW 19.4 H Lymph % (Auto) [place] % (Auto) 10.2 H Eos % (Auto) 6.0 H Lymph # 0.9 L [place] # Seg Neutrophils % D-Dimer ABG pO2 ABG HCO3 ABG O2 Saturation ABG Base Excess ABG Hemoglobin Oxyhemoglobin Sodium 153 H Potassium Chloride 114.6 H Carbon Dioxide BUN Glucose 170 H POC Glucose 188 H Lactic Acid Calcium 7.9 L AST ALT Lactate Dehydrogenase Total Creatine Kinase C-Reactive Protein Albumin Urine WBC (Auto) Digoxin Salicylates Acetaminophen 12/20/19 12/20/19 12/21/19 12:26 18:20 00:20 Hgb Hct MCH MCHC RDW Lymph % (Auto) [place] % (Auto) Eos % (Auto) Lymph # [place] # Seg Neutrophils % D-Dimer ABG pO2 ABG HCO3 ABG O2 Saturation ABG Base Excess ABG Hemoglobin Oxyhemoglobin Sodium Potassium Chloride Carbon Dioxide BUN Glucose POC Glucose 200 H 263 H 218 H Lactic Acid Calcium AST ALT Lactate Dehydrogenase Total Creatine Kinase C-Reactive Protein Albumin Urine WBC (Auto) Digoxin Salicylates Acetaminophen 12/21/19 12/21/19 12/21/19 04:38 05:26 12:35 Hgb Hct MCH MCHC RDW Lymph % (Auto) [place] % (Auto) Eos % (Auto) Lymph # [place] # Seg Neutrophils % D-Dimer ABG pO2 ABG HCO3 ABG O2 Saturation ABG Base Excess ABG Hemoglobin Oxyhemoglobin Sodium 149 H Potassium 3.5 L Chloride 110.5 H Carbon Dioxide BUN Glucose 158 H POC Glucose 193 H 193 H Lactic Acid Calcium AST ALT Lactate Dehydrogenase Total Creatine Kinase C-Reactive Protein Albumin Urine WBC (Auto) Digoxin Salicylates Acetaminophen 12/21/19 12/22/19 12/22/19 18:29 00:03 05:15 Hgb 10.3 L Hct 34.7 L MCH 25 L MCHC 30 L RDW 19.4 H Lymph % (Auto) 9.0 L [place] % (Auto) 12.3 H Eos % (Auto) 5.0 H Lymph # 0.5 L [place] # Seg Neutrophils % 73.2 H D-Dimer ABG pO2 ABG HCO3 ABG O2 Saturation ABG Base Excess ABG Hemoglobin Oxyhemoglobin Sodium Potassium Chloride Carbon Dioxide BUN Glucose POC Glucose 186 H 143 H Lactic Acid Calcium AST ALT Lactate Dehydrogenase Total Creatine Kinase C-Reactive Protein Albumin Urine WBC (Auto) Digoxin Salicylates Acetaminophen 12/22/19 12/22/19 12/22/19 05:15 06:02 12:13 Hgb Hct MCH MCHC RDW Lymph % (Auto) [place] % (Auto) Eos % (Auto) Lymph # [place] # Seg Neutrophils % D-Dimer ABG pO2 ABG HCO3 ABG O2 Saturation ABG Base Excess ABG Hemoglobin Oxyhemoglobin Sodium 152 H Potassium Chloride 113.5 H Carbon Dioxide BUN Glucose 126 H POC Glucose 144 H 159 H Lactic Acid Calcium AST ALT Lactate Dehydrogenase Total Creatine Kinase C-Reactive Protein Albumin Urine WBC (Auto) Digoxin Salicylates Acetaminophen 12/22/19 12/22/19 12/23/19 18:03 23:50 05:27 Hgb Hct MCH MCHC RDW Lymph % (Auto) [place] % (Auto) Eos % (Auto) Lymph # [place] # Seg Neutrophils % D-Dimer ABG pO2 ABG HCO3 ABG O2 Saturation ABG Base Excess ABG Hemoglobin Oxyhemoglobin Sodium Potassium Chloride Carbon Dioxide BUN Glucose POC Glucose 140 H 227 H 185 H Lactic Acid Calcium AST ALT Lactate Dehydrogenase Total Creatine Kinase C-Reactive Protein Albumin Urine WBC (Auto) Digoxin Salicylates Acetaminophen 12/23/19 12:13 Hgb Hct MCH MCHC RDW Lymph % (Auto) [place] % (Auto) Eos % (Auto) Lymph # [place] # Seg Neutrophils % D-Dimer ABG pO2 ABG HCO3 ABG O2 Saturation ABG Base Excess ABG Hemoglobin Oxyhemoglobin Sodium Potassium Chloride Carbon Dioxide BUN Glucose POC Glucose 132 H Lactic Acid Calcium AST ALT Lactate Dehydrogenase Total Creatine Kinase C-Reactive Protein Albumin Urine WBC (Auto) Digoxin Salicylates Acetaminophen Chest x-ray: other (none today) Allied health notes reviewed: RT
--- NOTE | 2019-12-23 15:34 | Progress Note ---
Assessment and Plan / Acute hypoxic respiratory failure Likely from bilateral pneumonia and diastolic heart failure Patient intubated, placed on ventilatory support. critical care team consulted in ED. Patient is extubated, continue nebulizer breathing treatment and as needed biPAP We will also do a swallow eval / Sepsis with shock cont IV antibiotic therapy, IV fluid resuscitation therapy, monitor urine output every shift, maintain mean arterial blood pressure greater than or equal to 65, s/p IV pressor support. / Suspected 2019-nCoV infection -ruled out with 2 negative test / Diastolic CHF Preserved EF based on prior echocardiogram Monitor weight strict I's/O, daily weight, monitor urine output every shift, submental oxygen, blood pressure control. /JAGDEEP, due to vasomotor nephropathy, present on admission -Creatinine improving, continue IV fluid -Likely due to severe sepsis and hypotension /hypernatremia, -due to dehydration and sepsis -change fluid to D5W - monitor BMP /Hypokalemia, replete / Diabetes type II Initiate tube feeding diet Sliding scale insulin, Accu-Chek, hypoglycemia protocol. / Hypothyroidism Synthroid therapy, supportive care. / Bilateral pneumonia Pneumonia protocol: IV antibiotic therapy with rocephin for total 7 days, pulse oximetry, /Cervical lymphadenopathy -Reactive versus infectious process versus malignancy -Need repeat scanning and further staging when medically more stable -Pulmonology and ID following / HTN (hypertension) -hold BP meds as patient is hypotensive Monitor blood pressure every shift, continue medical management. /History of obstructive sleep apnea -Patient currently on mechanical ventilation /Urinary retention, suspected in the ER -Patient having good urine output now, will hold any CT scan -Continue IV fluid / DVT prophylaxis SCD to bilateral lower extremities while in bed, prophylactic heparin 12/19/19: Negative for COVID-19, continue pressor and wean off as tolerated, continue IV antibiotic and follow cultures. 12/19: Weaned off from pressor, sodium 156>157>153 today, creatinine 1.4>1.2>1.0. Continue IV fluid. Wean off from vent as tolerated. Follow ID r ecommendation 12/20: Extubated today, continue to monitor in the ICU overnight if clinically stable with transfer out to [facility]/telemetry tomorrow a.m.. Sodium 149 today, continue IV fluid and monitor BMP. Swallow eval, PT OT eval. 2nd text for covid is negative 12/21: transfer to IMCU, start on gentle hydration. mechanical soft diet 12/22: placed back on bipap, Na 163 - start on D5W, monitor bmp Brief history: 59-year-old male past medical history diastolic CHF, OHS, HTN, DM 2, hypothyroidism admitted with confusion after being found by a neighbor. On arrival patient was found to be lethargic, and in respiratory distress and hypoxic. Patient was intubated in the ER because of hypoxic respiratory failure. Also noted to be hypotensive, placed on pressor admitted to ICU. Patient is negative for COVID-19, being treated for bilateral pneumonia. JAGDEEP improved with IV fluid, ID and critical care following. Chest x-ray: Left lower lobe airspace disease CT chest: 1. Patchy bilateral nodular and consolidative airspace opacities which are nonspecific but likely related to the reported history of Covid. 2. Multiple enlarged partially visualized left supraclavicular and lower cervical chain lymph nodes. While these are nonspecific and may be reactive, a neoplastic process is possible, recommend short interval follow-up after patient recovers from the acute episode. Physical exam: GENERAL: well-developed obese white male lying on bed appeared to be in no discomfort. HEENT: Normocephalic. Atraumatic. No conjunctival congestion or icterus. Patient has moist mucous membranes. NECK: Supple. Trachea midline. CHEST/LUNGS: Coarse breath sound auscultated bilaterally, HEART/CARDIOVASCULAR: Regular in rate and rhythm. S1 and S2 positive. ABDOMEN: Abdomen is soft, nontender. Patient has normal bowel sounds. SKIN: There is no rash. Warm and dry. NEURO: follows command, no focal deficits MUSCULOSKELETAL: No joint effusion or tenderness. EXTRIMITY: No edema, no cyanosis or clubbing. PSYCH: Cooperative Subjective Date of service: 12/23/19 Principal diagnosis: Ac. Hypoxemic Resp Failure; Septic Shock; Magdiel. PNA; PUI COVID-19; CHF; JOE Interval history: Patient seen and examined Patient denies any acute issue tolerating diet but minimal Po intake, Na 163 today Objective - Constitutional Vitals: Vital Signs - 12hr 12/23/19 12/23/19 12/23/19 04:00 05:00 06:00 Temperature 97.8 F Pulse Rate 84 92 H 92 H Pulse Rate [ Bilateral] Pulse Rate [ 94 H From Monitor] Respiratory 41 H 50 H 25 H Rate Respiratory Rate [Bilateral ] Blood Pressure 112/80 126/67 119/61 O2 Sat by Pulse 93 84 Oximetry 12/23/19 12/23/19 12/23/19 07:00 08:00 08:58 Temperature 97.9 F Pulse Rate 88 82 Pulse Rate [ 93 H Bilateral] Pulse Rate [ From Monitor] Respiratory 52 H 42 H Rate Respiratory 32 H Rate [Bilateral ] Blood Pressure 119/61 122/66 O2 Sat by Pulse 97 96 Oximetry 12/23/19 12/23/19 12/23/19 09:00 09:36 10:00 Temperature Pulse Rate 78 86 Pulse Rate [ Bilateral] Pulse Rate [ From Monitor] Respiratory 37 H 52 H Rate Respiratory Rate [Bilateral ] Blood Pressure 120/60 104/54 O2 Sat by Pulse 95 97 92 Oximetry 12/23/19 12/23/19 12/23/19 11:00 12:00 14:46 Temperature 98.0 F Pulse Rate 85 82 Pulse Rate [ 96 H Bilateral] Pulse Rate [ From Monitor] Respiratory 43 H 55 H Rate Respiratory 50 H Rate [Bilateral ] Blood Pressure 122/61 126/64 O2 Sat by Pulse 93 Oximetry 12/23/19 14:48 Temperature Pulse Rate 94 H Pulse Rate [ Bilateral] Pulse Rate [ From Monitor] Respiratory 49 H Rate Respiratory Rate [Bilateral ] Blood Pressure 108/63 O2 Sat by Pulse 94 Oximetry - Labs CBC & Chem 7: 12/22/19 05:15 12/23/19 16:40 Labs: Abnormal lab results 12/22/19 12/22/19 12/23/19 Range/Units 18:03 23:50 05:27 POC Glucose 140 H 227 H 185 H (70-105) 12/23/19 Range/Units 12:13 POC Glucose 132 H (70-105) HEART Score - HEART Score Troponin: Troponin T 0.011 ng/mL (0.00-0.029) 12/18/19 14:45
--- NOTE | 2019-12-23 15:42 | Progress Note ---
Assessment and Plan Cultures: Blood culture 12/18/2019 pending A/P: 59-year-old male past medical history diastolic CHF, OHS, HTN, DM 2, hypothyroidism #Acute hypoxic respiratory failure: Given his normal procalcitonin, and normal white count a feel less likely that this is a bacterial pneumonia. He did consider viral etiology of acute hypoxic respiratory failure, but is improving now. #Diabetes: Tight glycemic control. #Multiple chronic comorbidities Recs: -Continue empiric ceftriaxone for now, would complete 7 total days. -If discharging prior to stop date, would send with cefdinir 3 mg every 12 hours Thank you for the consult, we will sign off, please call with questions Sabrina Pinzon MD [facility] ([facility]) M: [phone] O: [phone] F: [phone] Subjective Date of service: 12/23/19 Principal diagnosis: Ac. Hypoxemic Resp Failure; Septic Shock; Magdiel. PNA; PUI COVID-19; CHF; JOE Interval history: Afebrile normal white count. No concerns today. Objective - Exam Narrative Exam: Physical Exam: Constitutional: On nasal cannula, alert Head, Ears, Nose: Normocephalic, atraumatic. Eyes: Conjunctivae/corneas clear. No icterus. No ptosis. Cardiovascular: S1, S2 normal. Respiratory: Good air entry, clear to auscultation bilaterally GI: Soft, non-tender; bowel sounds normal. No peritoneal signs. Musculoskeletal: No pedal edema, no cyanosis. Skin: No rash or abscess Hem/Lymphatic: No palpable cervical or supraclavicular nodes. No lymphangitis Neurological: No gross abnormality - Constitutional Vitals: Vital Signs Temp Pulse Resp BP Pulse Ox 98.0 F 94 H 49 H 108/63 94 12/23/19 12:00 12/23/19 14:48 12/23/19 14:48 12/23/19 14:48 12/23/19 14:48 Temperature -Last 24 Hours Temperature 98.0 F Temperature 97.9 F Temperature 97.8 F Temperature 97.3 F Temperature 97.3 F Temperature 97.9 F - Labs CBC & Chem 7: 12/22/19 05:15 12/22/19 05:15 Labs: Abnormal lab results 12/22/19 12/22/1912/22/20 Range/Units 18:03 23:50 05:27 POC Glucose 140 H 227 H 185 H (70-105) 12/23/19 Range/Units 12:13 POC Glucose 132 H (70-105)
[2019-12-23 16:14] LABS: ABG HCO3 30.6 mmol/L (20.0-26.0); ABG Methemoglobin 0.6 % (0.0-1.5); ABG Oxygen Saturation 94.6 % (95.0-99.0); ABG PCO2 69.9 mm Hg; ABG PH 7.259 pH Units (7.350-7.450); ABG PO2 76.2 mm Hg (80.0-90.0)
[2019-12-23 17:16] LABS: BUN/Creatinine Ratio 10; Blood Urea Nitrogen 11 mg/dL (9-20); Calcium 9.2 mg/dL (8.4-10.2); Hemolysis Index 1
[2019-12-23] MEDS: DEXTROSE 5% IN WATER 1,000 ML IV SCH (19:43)
[2019-12-23] MEDS: INSULIN GLARGINE 100 UNITS/ML SUB-Q SCH (22:46)
[2019-12-24] MEDS: INSULIN LISPRO 100 UNIT/ML SUB-Q SCH ×4 (00:52→17:27)
[2019-12-24 04:53] LABS: ABG Base Excess 3.9 mmol/L (-2.0-3.0); ABG HCO3 30.4 mmol/L (20.0-26.0); ABG Methemoglobin 0.6 % (0.0-1.5); ABG Oxygen Saturation 96.7 % (95.0-99.0); ABG PCO2 56.4 mm Hg; ABG PH 7.35 pH Units (7.350-7.450); ABG PO2 87.7 mm Hg (80.0-90.0)
[2019-12-24 05:24] LABS: Mean Corpuscular HGB Conc 29 % (32-34); Mean Corpuscular Volume 84 fl (84-94); Platelet Count 182 K/mm3 (140-440); Red Blood Count 3.94 M/mm3 (3.65-5.03)
[2019-12-24 05:32] LABS: Hemoglobin 9.7 gm/dl (11.8-15.2)
[2019-12-24 05:33] LABS: Hematocrit 33.2 % (35.5-45.6); Red Cell Distribution Width 20.1 % (13.2-15.2)
[2019-12-24 05:40] LABS: BUN/Creatinine Ratio 8; Blood Urea Nitrogen 11 mg/dL (9-20); Calcium 9.2 mg/dL (8.4-10.2); Hemolysis Index 2
[2019-12-24] MEDS: LEVOTHYROXINE 88 MCG TAB PO SCH (06:04)
[2019-12-24 06:34] LABS: Basophils % (Manual) 0 % (0.0-1.8); Hypochromasia 1+; Total Cells Counted 100
[2019-12-24 06:35] LABS: Anisocytosis 1+; Ovalocytes Few; Platelet Estimate Consistent w Auto
[2019-12-24] MEDS: IPRATROPIUM/ALBUTEROL SULFATE 3 ML AMPUL.NEB IH SCH ×3 (07:58→19:56)
[2019-12-24] MEDS: DEXTROSE 5% IN WATER 1,000 ML IV SCH ×2 (11:20→23:53)
[2019-12-24] MEDS: cefTRIAXone/NS 2 GM/100 ML 2 GM/100 ML BAG IV SCH (11:20)
[2019-12-24] MEDS: FAMOTIDINE 20 MG TAB PO SCH (11:21)
[2019-12-24] MEDS: ASPIRIN 81 MG TAB CHEW PO SCH (11:21)
[2019-12-24] MEDS: HEPARIN 5,000 UNIT/1 ML VIAL SUB-Q SCH ×2 (11:21→21:12)
[2019-12-24] MEDS: FOLIC ACID 1 MG TAB PO SCH (11:21)
[2019-12-24] MEDS: POTASSIUM CHLORIDE 20 MEQ PACKET FEEDTUBE SCH (11:22)
--- NOTE | 2019-12-24 12:34 | Progress Note ---
Assessment and Plan Acute Hypoxemic Respiratory Failure Severe Sepsis with Shock Bilateral Pneumonia PUI COVID-19 Morbid Obesity H/O CHF JOE - again attempt to switch to qhs BIPAP with prn daytime use - repeat ABG prn at this point - follow repeat COVID-19 testing - continue to wean supplemental oxygen for target O2 sat's > 92% acutely - continue bronchodilators with pulmonary hygiene per RT - continue accuchecks with glycemic control per SSI (While critically ill target blood glucose of 140-180 mg/dL; avoid hypoglycemia) - continue to avoid benzodiazepine's, reduce the possibility of delirium - complete AB's per ID rec's (Rocephin) - prn analgesia per pain score - Maintenance of sleep-wake cycle, avoid delirium - enteral nutritional support at goal rate as tolerated - G.I. & VTE prophylaxis - PT/OT/ROM exercises - continue mobility protocols for pressure ulcer prophylaxis - Monitor hemodynamics closely - continue other care per attending / other consultants - discharge planning ongoing concurrently - LTAC evaluation requested .... Re-evaluate in am & prn CONDITION: CRITICAL PROGNOSIS: GUARDED CODE STATUS: FULL CODE The high probability of a clinically significant, sudden or life-threatening deterioration of the [respiratory, cardiovascular, GI & neurologic] system(s) required my full and direct attention, intervention and personal management. The aggregate critical care time was [34] minutes without overlap. Time includes spent on; [x] Data Review and interpretation [x] Patient assessment and monitoring of vital signs [x] Documentation [x] Medication orders and management Subjective Date of service: 12/24/19 Principal diagnosis: Ac. Hypoxemic Resp Failure; Septic Shock; Magdiel. PNA; PUI COVID-19; CHF; JOE Interval history: Patient is seen today for: Acute Hypoxemic Respiratory Failure; Severe Sepsis with Shock; Bilateral Pneumonia; PUI COVID-19; Morbid Obesity; H/O CHF; JOE Seen and examined at bedside; 24hour events reviewed; nursing and respiratory care staff consulted; no adverse overnight events reported to me; resting peacef ully in bed; acid-base balance improved; no emesis or overt aspiration; more alert overall Objective Vital Signs - 12hr 12/24/19 12/24/19 12/24/19 01:00 02:00 03:00 Temperature Pulse Rate 87 76 79 Pulse Rate [ Bilateral] Pulse Rate [ From Monitor] Respiratory 31 H 25 H 25 H Rate Respiratory Rate [Bilateral ] Blood Pressure 122/61 119/43 119/43 O2 Sat by Pulse 97 Oximetry 12/24/19 12/24/19 12/24/19 03:25 04:00 05:00 Temperature 98.1 F Pulse Rate 95 H 85 83 Pulse Rate [ Bilateral] Pulse Rate [ 89 From Monitor] Respiratory 25 H 21 25 H Rate Respiratory Rate [Bilateral ] Blood Pressure 103/46 113/43 116/45 O2 Sat by Pulse 95 96 96 Oximetry 12/24/19 12/24/19 12/24/19 06:00 07:00 07:52 Temperature Pulse Rate 85 82 94 H Pulse Rate [ Bilateral] Pulse Rate [ From Monitor] Respiratory 38 H 35 H 37 H Rate Respiratory Rate [Bilateral ] Blood Pressure 114/55 121/59 121/59 O2 Sat by Pulse 94 95 94 Oximetry 12/24/19 12/24/19 12/24/19 07:58 07:59 08:00 Temperature 98.2 F Pulse Rate 81 Pulse Rate [ 80 Bilateral] Pulse Rate [ From Monitor] Respiratory 35 H Rate Respiratory 39 H Rate [Bilateral ] Blood Pressure 126/58 O2 Sat by Pulse 91 94 Oximetry 12/24/19 09:00 Temperature Pulse Rate 83 Pulse Rate [ Bilateral] Pulse Rate [ From Monitor] Respiratory 20 Rate Respiratory Rate [Bilateral ] Blood Pressure 126/58 O2 Sat by Pulse 97 Oximetry Constitutional: no acute distress, alert Eyes: non-icteric ENT: oropharynx moist, other Neck: supple, no lymphadenopathy, no JVD Effort: mildly labored Ascultation: Bilateral: diminished breath sounds, rhonchi Percussion: Bilateral: not dull Cardiovascular: regular rate and rhythm, other (S1,S2) Gastrointestinal: hypoactive bowel sounds, soft, non-tender, other (distended) Integumentary: rash (stasis dermatyitis) Extremities: no cyanosis, pink and warm, pulses normal, no ischemia or petechiae, edema (trace) Neurologic: normal mental status, non-focal exam, pupils equal and round, CN II- XII normal, motor strength normal and (obeys simple commands) Psychiatric: mood appropriate, affect normal CBC and BMP: 12/27/19 03:48 12/27/19 03:48 ABG, PT/INR, D-dimer: ABG ABG pH 7.350 pH Units (7.350-7.450) 12/24/19 04:20 ABG pCO2 56.4 mm Hg 12/24/19 04:20 ABG pO2 87.7 mm Hg (80.0-90.0) 12/24/19 04:20 ABG O2 Saturation 96.7 % (95.0-99.0) 12/24/19 04:20 PT/INR, D-dimer PT 14.0 Sec. (12.2-14.9) 12/18/19 14:45 INR 1.10 (0.87-1.13) 12/18/19 14:45 D-Dimer 534.45 ng/mlDDU (0-234) H 12/18/19 14:45 Abnormal lab findings: Abnormal Labs 12/18/19 12/18/19 12/18/19 12:23 14:45 14:45 Hgb 10.4 L Hct 35.2 L MCH 25 L MCHC 30 L RDW 18.8 H Lymph % (Auto) [place] % (Auto) 11.6 H Eos % (Auto) 4.8 H Lymph # [place] # 1.0 H Seg Neutrophils % Monocytes % (Manual) Monocytes # (Manual) D-Dimer ABG pH ABG pO2 ABG HCO3 ABG O2 Saturation ABG Base Excess ABG Hemoglobin Oxyhemoglobin Sodium Potassium Chloride Carbon Dioxide BUN Glucose POC Glucose 328 H Lactic Acid Calcium AST ALT Lactate Dehydrogenase Total Creatine Kinase 40 L C-Reactive Protein Albumin Urine WBC (Auto) Digoxin Salicylates Acetaminophen 12/18/19 12/18/19 12/18/19 14:45 14:45 14:45 Hgb Hct MCH MCHC RDW Lymph % (Auto) [place] % (Auto) Eos % (Auto) Lymph # [place] # Seg Neutrophils % Monocytes % (Manual) Monocytes # (Manual) D-Dimer 534.45 H ABG pH ABG pO2 ABG HCO3 ABG O2 Saturation ABG Base Excess ABG Hemoglobin Oxyhemoglobin Sodium 156 H Potassium Chloride 112.3 H Carbon Dioxide 31 H BUN 32 H Glucose 328 H POC Glucose Lactic Acid Calcium AST ALT Lactate Dehydrogenase 235 H Total Creatine Kinase C-Reactive Protein 8.50 H Albumin 3.6 L Urine WBC (Auto) Digoxin 0.3 L Salicylates < 0.3 L Acetaminophen 06/13/20 06/13/20 06/13/20 14:45 14:45 16:00 Hgb Hct MCH MCHC RDW Lymph % (Auto) [place] % (Auto) Eos % (Auto) Lymph # [place] # Seg Neutrophils % Monocytes % (Manual) Monocytes # (Manual) D-Dimer ABG pH ABG pO2 69.8 L ABG HCO3 31.8 H ABG O2 Saturation ABG Base Excess 5.4 H ABG Hemoglobin 10.0 L Oxyhemoglobin 92.9 L Sodium Potassium Chloride Carbon Dioxide BUN Glucose 314 H POC Glucose Lactic Acid Calcium AST ALT Lactate Dehydrogenase 236 H Total Creatine Kinase C-Reactive Protein 8.40 H Albumin Urine WBC (Auto) Digoxin Salicylates Acetaminophen < 5.0 L 12/18/19 12/18/19 12/18/19 16:35 18:30 22:56 Hgb Hct MCH MCHC RDW Lymph % (Auto) [place] % (Auto) Eos % (Auto) Lymph # [place] # Seg Neutrophils % Monocytes % (Manual) Monocytes # (Manual) D-Dimer ABG pH ABG pO2 ABG HCO3 ABG O2 Saturation ABG Base Excess ABG Hemoglobin Oxyhemoglobin Sodium Potassium Chloride Carbon Dioxide BUN Glucose POC Glucose 310 H 353 H Lactic Acid 2.50 H* Calcium AST ALT Lactate Dehydrogenase Total Creatine Kinase C-Reactive Protein Albumin Urine WBC (Auto) Digoxin Salicylates Acetaminophen 12/19/19 12/19/19 12/19/19 04:13 04:13 06:00 Hgb 10.0 L Hct 34.2 L MCH 25 L MCHC 29 L RDW 19.0 H Lymph % (Auto) [place] % (Auto) 10.1 H Eos % (Auto) Lymph # [place] # 1.1 H Seg Neutrophils % 71.8 H Monocytes % (Manual) Monocytes # (Manual) D-Dimer ABG pH ABG pO2 186.5 H ABG HCO3 27.8 H ABG O2 Saturation 99.1 H ABG Base Excess ABG Hemoglobin 10.4 L Oxyhemoglobin Sodium 157 H Potassium Chloride 119.1 H Carbon Dioxide BUN 26 H Glucose 302 H POC Glucose Lactic Acid Calcium 7.9 L AST 85 H ALT 61 H Lactate Dehydrogenase Total Creatine Kinase C-Reactive Protein Albumin 3.0 L Urine WBC (Auto) Digoxin Salicylates Acetaminophen 12/19/19 12/19/19 12/19/19 08:30 11:55 16:50 Hgb Hct MCH MCHC RDW Lymph % (Auto) [place] % (Auto) Eos % (Auto) Lymph # [place] # Seg Neutrophils % Monocytes % (Manual) Monocytes # (Manual) D-Dimer ABG pH ABG pO2 ABG HCO3 ABG O2 Saturation ABG Base Excess ABG Hemoglobin Oxyhemoglobin Sodium Potassium Chloride Carbon Dioxide BUN Glucose POC Glucose 264 H 251 H Lactic Acid Calcium AST ALT Lactate Dehydrogenase Total Creatine Kinase C-Reactive Protein Albumin Urine WBC (Auto) 7.0 H Digoxin Salicylates Acetaminophen 12/19/19 12/19/19 12/20/19 17:41 23:42 03:35 Hgb Hct MCH MCHC RDW Lymph % (Auto) [place] % (Auto) Eos % (Auto) Lymph # [place] # Seg Neutrophils % Monocytes % (Manual) Monocytes # (Manual) D-Dimer ABG pH ABG pO2 ABG HCO3 27.7 H ABG O2 Saturation ABG Base Excess ABG Hemoglobin 11.6 L Oxyhemoglobin 94.9 L Sodium Potassium Chloride Carbon Dioxide BUN Glucose POC Glucose 180 H 205 H Lactic Acid Calcium AST ALT Lactate Dehydrogenase Total Creatine Kinase C-Reactive Protein Albumin Urine WBC (Auto) Digoxin Salicylates Acetaminophen 12/20/19 12/20/19 12/20/19 04:45 04:45 05:27 Hgb 9.4 L Hct 31.4 L MCH 25 L MCHC 30 L RDW 19.4 H Lymph % (Auto) [place] % (Auto) 10.2 H Eos % (Auto) 6.0 H Lymph # 0.9 L [place] # Seg Neutrophils % Monocytes % (Manual) Monocytes # (Manual) D-Dimer ABG pH ABG pO2 ABG HCO3 ABG O2 Saturation ABG Base Excess ABG Hemoglobin Oxyhemoglobin Sodium 153 H Potassium Chloride 114.6 H Carbon Dioxide BUN Glucose 170 H POC Glucose 188 H Lactic Acid Calcium 7.9 L AST ALT Lactate Dehydrogenase Total Creatine Kinase C-Reactive Protein Albumin Urine WBC (Auto) Digoxin Salicylates Acetaminophen 12/20/19 12/20/19 12/21/19 12:26 18:20 00:20 Hgb Hct MCH MCHC RDW Lymph % (Auto) [place] % (Auto) Eos % (Auto) Lymph # [place] # Seg Neutrophils % Monocytes % (Manual) Monocytes # (Manual) D-Dimer ABG pH ABG pO2 ABG HCO3 ABG O2 Saturation ABG Base Excess ABG Hemoglobin Oxyhemoglobin Sodium Potassium Chloride Carbon Dioxide BUN Glucose POC Glucose 200 H 263 H 218 H Lactic Acid Calcium AST ALT Lactate Dehydrogenase Total Creatine Kinase C-Reactive Protein Albumin Urine WBC (Auto) Digoxin Salicylates Acetaminophen 12/21/19 12/21/19 12/21/19 04:38 05:26 12:35 Hgb Hct MCH MCHC RDW Lymph % (Auto) [place] % (Auto) Eos % (Auto) Lymph # [place] # Seg Neutrophils % Monocytes % (Manual) Monocytes # (Manual) D-Dimer ABG pH ABG pO2 ABG HCO3 ABG O2 Saturation ABG Base Excess ABG Hemoglobin Oxyhemoglobin Sodium 149 H Potassium 3.5 L Chloride 110.5 H Carbon Dioxide BUN Glucose 158 H POC Glucose 193 H 193 H Lactic Acid Calcium AST ALT Lactate Dehydrogenase Total Creatine Kinase C-Reactive Protein Albumin Urine WBC (Auto) Digoxin Salicylates Acetaminophen 12/21/19 12/22/19 12/22/19 18:29 00:03 05:15 Hgb 10.3 L Hct 34.7 L MCH 25 L MCHC 30 L RDW 19.4 H Lymph % (Auto) 9.0 L [place] % (Auto) 12.3 H Eos % (Auto) 5.0 H Lymph # 0.5 L [place] # Seg Neutrophils % 73.2 H Monocytes % (Manual) Monocytes # (Manual) D-Dimer ABG pH ABG pO2 ABG HCO3 ABG O2 Saturation ABG Base Excess ABG Hemoglobin Oxyhemoglobin Sodium Potassium Chloride Carbon Dioxide BUN Glucose POC Glucose 186 H 143 H Lactic Acid Calcium AST ALT Lactate Dehydrogenase Total Creatine Kinase C-Reactive Protein Albumin Urine WBC (Auto) Digoxin Salicylates Acetaminophen 12/22/19 12/22/19 12/22/19 05:15 06:02 12:13 Hgb Hct MCH MCHC RDW Lymph % (Auto) [place] % (Auto) Eos % (Auto) Lymph # [place] # Seg Neutrophils % Monocytes % (Manual) Monocytes # (Manual) D-Dimer ABG pH ABG pO2 ABG HCO3 ABG O2 Saturation ABG Base Excess ABG Hemoglobin Oxyhemoglobin Sodium 152 H Potassium Chloride 113.5 H Carbon Dioxide BUN Glucose 126 H POC Glucose 144 H 159 H Lactic Acid Calcium AST ALT Lactate Dehydrogenase Total Creatine Kinase C-Reactive Protein Albumin Urine WBC (Auto) Digoxin Salicylates Acetaminophen 12/22/19 12/22/19 12/23/19 18:03 23:50 05:27 Hgb Hct MCH MCHC RDW Lymph % (Auto) [place] % (Auto) Eos % (Auto) Lymph # [place] # Seg Neutrophils % Monocytes % (Manual) Monocytes # (Manual) D-Dimer ABG pH ABG pO2 ABG HCO3 ABG O2 Saturation ABG Base Excess ABG Hemoglobin Oxyhemoglobin Sodium Potassium Chloride Carbon Dioxide BUN Glucose POC Glucose 140 H 227 H 185 H Lactic Acid Calcium AST ALT Lactate Dehydrogenase Total Creatine Kinase C-Reactive Protein Albumin Urine WBC (Auto) Digoxin Salicylates Acetaminophen 12/23/19 12/23/19 12/23/19 12:13 16:05 16:40 Hgb Hct MCH MCHC RDW Lymph % (Auto) [place] % (Auto) Eos % (Auto) Lymph # [place] # Seg Neutrophils % Monocytes % (Manual) Monocytes # (Manual) D-Dimer ABG pH 7.259 L ABG pO2 76.2 L ABG HCO3 30.6 H ABG O2 Saturation 94.6 L ABG Base Excess ABG Hemoglobin 11.5 L Oxyhemoglobin 92.2 L Sodium 163 H* D Potassium 3.4 L Chloride 120.1 H Carbon Dioxide BUN Glucose 162 H POC Glucose 132 H Lactic Acid Calcium AST ALT Lactate Dehydrogenase Total Creatine Kinase C-Reactive Protein Albumin Urine WBC (Auto) Digoxin Salicylates Acetaminophen 12/23/19 12/24/19 12/24/19 17:53 00:48 04:20 Hgb Hct MCH MCHC RDW Lymph % (Auto) [place] % (Auto) Eos % (Auto) Lymph # [place] # Seg Neutrophils % Monocytes % (Manual) Monocytes # (Manual) D-Dimer ABG pH ABG pO2 ABG HCO3 30.4 H ABG O2 Saturation ABG Base Excess 3.9 H ABG Hemoglobin 10.3 L Oxyhemoglobin 94.4 L Sodium Potassium Chloride Carbon Dioxide BUN Glucose POC Glucose 180 H 174 H Lactic Acid Calcium AST ALT Lactate Dehydrogenase Total Creatine Kinase C-Reactive Protein Albumin Urine WBC (Auto) Digoxin Salicylates Acetaminophen 12/24/19 12/24/19 12/24/19 04:53 04:53 11:50 Hgb 9.7 L Hct 33.2 L MCH 25 L MCHC 29 L RDW 20.1 H Lymph % (Auto) [place] % (Auto) Eos % (Auto) Lymph # [place] # Seg Neutrophils % Monocytes % (Manual) 15.0 H Monocytes # (Manual) 0.9 H D-Dimer ABG pH ABG pO2 ABG HCO3 ABG O2 Saturation ABG Base Excess ABG Hemoglobin Oxyhemoglobin Sodium 163 H* Potassium 3.2 L Chloride 122.6 H Carbon Dioxide BUN Glucose 168 H POC Glucose 190 H Lactic Acid Calcium AST ALT Lactate Dehydrogenase Total Creatine Kinase C-Reactive Protein Albumin Urine WBC (Auto) Digoxin Salicylates Acetaminophen Chest x-ray: image reviewed Allied health notes reviewed: RT
--- NOTE | 2019-12-24 16:31 | Progress Note ---
Assessment and Plan Assessment and plan: 59-year-old male past medical history diastolic CHF, OHS, HTN, DM 2, hypothyroidism admitted with confusion after being found by a neighbor. On arrival patient was found to be lethargic, and in respiratory distress and hypoxic. Patient was intubated in the ER because of hypoxic respiratory failure. Also noted to be hypotensive, placed on pressor admitted to ICU. Patient is negative for COVID-19, being treated for bilateral pneumonia. JAGDEEP improved with IV fluid, ID and critical care following. Chest x-ray: Left lower lobe airspace disease CT chest: 1. Patchy bilateral nodular and consolidative airspace opacities which are nonspecific but likely related to the reported history of Covid. 2. Multiple enlarged partially visualized left supraclavicular and lower cervical chain lymph nodes. While these are nonspecific and may be reactive, a neoplastic process is possible, recommend short interval follow-up after patient recovers from the acute episode. / Acute hypoxic respiratory failure Likely from bilateral pneumonia and diastolic heart failure Patient intubated, placed on ventilatory support. critical care team consulted in ED. Patient is extubated, continue nebulizer breathing treatment and as needed biPAP We will also do a swallow eval / Sepsis with shock cont IV antibiotic therapy, IV fluid resuscitation therapy, monitor urine output every shift, maintain mean arterial blood pressure greater than or equal to 65, s/p IV pressor support. / Suspected 2019-nCoV infection -ruled out with 2 negative test / Diastolic CHF Preserved EF based on prior echocardiogram Monitor weight strict I's/O, daily weight, monitor urine output every shift, submental oxygen, blood pressure control. /JAGDEEP, due to vasomotor nephropathy, present on admission -Creatinine improving, continue IV fluid -Likely due to severe sepsis and hypotension /hypernatremia, -due to dehydration and sepsis -change fluid to D5W - monitor BMP /Hypokalemia, replete / Diabetes type II Initiate tube feeding diet Sliding scale insulin, Accu-Chek, hypoglycemia protocol. / Hypothyroidism Synthroid therapy, supportive care. / Bilateral pneumonia Pneumonia protocol: IV antibiotic therapy with rocephin for total 7 days, pulse oximetry, /Cervical lymphadenopathy -Reactive versus infectious process versus malignancy -Need repeat scanning and further staging when medically more stable -Pulmonology and ID following / HTN (hypertension) -hold BP meds as patient is hypotensive Monitor blood pressure every shift, continue medical management. /History of obstructive sleep apnea -Patient currently on mechanical ventilation /Urinary retention, suspected in the ER -Patient having good urine output now, will hold any CT scan -Continue IV fluid / DVT prophylaxis SCD to bilateral lower extremities while in bed, prophylactic heparin 12/19/19: Negative for COVID-19, continue pressor and wean off as tolerated, continue IV antibiotic and follow cultures. 12/19: Weaned off from pressor, sodium 156>157>153 today, creatinine 1.4>1.2>1.0. Continue IV fluid. Wean off from vent as tolerated. Follow ID recommendation 12/20: Extubated today, continue to monitor in the ICU overnight if clinically stable with transfer out to [facility]/telemetry tomorrow a.m.. Sodium 149 today, continue IV fluid and monitor BMP. Swallow eval, PT OT eval. 2nd text for covid is negative 12/21: transfer to [facility], start on gentle hydration. mechanical soft diet 12/22: placed back on bipap, Na 163 - start on D5W, monitor bmp 12/23: spoke to sister, updated [id number], also discussed Pulmonary, will likely need LTAC. Obtain Nephrology due to persistent Hypernatremia. Will start on free water and continue to monitor. Remains of restriants for safety due to intermittent confusion. History Interval history: Patient seen and examined, still on BIPAP, Hospitalist Physical - Physical exam Narrative exam: GENERAL: well-developed obese white male lying on bed on restriants due to con fusion and pulling, still with some respiratory distress HEENT: Normocephalic. Atraumatic. No conjunctival congestion or icterus. Patient has moist mucous membranes. NECK: Supple. Trachea midline. CHEST/LUNGS: Coarse breath sound auscultated bilaterally, HEART/CARDIOVASCULAR: Regular in rate and rhythm. S1 and S2 positive. ABDOMEN: Abdomen is soft, nontender. Patient has normal bowel sounds. SKIN: There is no rash. Warm and dry. NEURO: follows some command, AMS, no focal deficits MUSCULOSKELETAL: No joint effusion or tenderness. EXTRIMITY: No edema, no cyanosis or clubbing. PSYCH: Cooperative - Constitutional Vitals: Temp Pulse Resp BP Pulse Ox 98.2 F 83 20 126/58 97 12/24/19 08:00 12/24/19 09:00 12/24/19 09:00 12/24/19 09:00 12/24/19 09:00 General appearance: Present: severe distress HEART Score - HEART Score Troponin: Troponin T 0.011 ng/mL (0.00-0.029) 12/18/19 14:45 Results - Labs CBC & Chem 7: 12/24/19 04:53 12/24/19 15:00 Labs: Laboratory Last Values WBC 5.8 K/mm3 (4.5-11.0) 12/24/19 04:53 RBC 3.94 M/mm3 (3.65-5.03) 12/24/19 04:53 Hgb 9.7 gm/dl (11.8-15.2) L 12/24/19 04:53 Hct 33.2 % (35.5-45.6) L 12/24/19 04:53 MCV 84 fl (84-94) 12/24/19 04:53 MCH 25 pg (28-32) L 12/24/19 04:53 MCHC 29 % (32-34) L 12/24/19 04:53 RDW 20.1 % (13.2-15.2) H 12/24/19 04:53 Plt Count 182 K/mm3 (140-440) 12/24/19 04:53 Lymph % (Auto) 9.0 % (13.4-35.0) L 12/22/19 05:15 Sawyer % (Auto) 12.3 % (0.0-7.3) H 12/22/19 05:15 Eos % (Auto) 5.0 % (0.0-4.3) H 12/22/19 05:15 Baso % (Auto) 0.5 % (0.0-1.8) 12/22/19 05:15 Lymph # 0.5 K/mm3 (1.2-5.4) L 12/22/19 05:15 Sawyer # 0.7 K/mm3 (0.0-0.8) 12/22/19 05:15 Eos # 0.3 K/mm3 (0.0-0.4) 12/22/19 05:15 Baso # 0.0 K/mm3 (0.0-0.1) 12/22/19 05:15 Add Manual Diff Complete 12/24/19 04:53 Total Counted 100 06/19/20 04:53 Seg Neutrophils % 73.2 % (40.0-70.0) H 12/22/19 05:15 Seg Neuts % (Manual) 60.0 % (40.0-70.0) 12/24/19 04:53 Band Neutrophils % 0 % 12/24/19 04:53 Lymphocytes % (Manual) 20.0 % (13.4-35.0) 12/24/19 04:53 Reactive Lymphs % (Man) 0 % 12/24/19 04:53 Monocytes % (Manual) 15.0 % (0.0-7.3) H 12/24/19 04:53 Eosinophils % (Manual) 4.0 % (0.0-4.3) 12/24/19 04:53 Basophils % (Manual) 0 % (0.0-1.8) 12/24/19 04:53 Metamyelocytes % 1.0 % 12/24/19 04:53 Myelocytes % 0 % 12/24/19 04:53 Promyelocytes % 0 % 12/24/19 04:53 Blast Cells % 0 % 12/24/19 04:53 Nucleated RBC % Not Reportable 12/24/19 04:53 Seg Neutrophils # 4.4 K/mm3 (1.8-7.7) 12/22/19 05:15 Seg Neutrophils # Man 3.5 K/mm3 (1.8-7.7) 12/24/19 04:53 Band Neutrophils # 0.0 K/mm3 12/24/19 04:53 Lymphocytes # (Manual) 1.2 K/mm3 (1.2-5.4) 12/24/19 04:53 Abs React Lymphs (Man) 0.0 K/mm3 12/24/19 04:53 Monocytes # (Manual) 0.9 K/mm3 (0.0-0.8) H 12/24/19 04:53 Eosinophils # (Manual) 0.2 K/mm3 (0.0-0.4) 12/24/19 04:53 Basophils # (Manual) 0.0 K/mm3 (0.0-0.1) 12/24/19 04:53 Metamyelocytes # 0.1 K/mm3 12/24/19 04:53 Myelocytes # 0.0 K/mm3 12/24/19 04:53 Promyelocytes # 0.0 K/mm3 12/24/19 04:53 Blast Cells # 0.0 K/mm3 12/24/19 04:53 WBC Morphology Not Reportable 12/24/19 04:53 Hypersegmented Neuts Not Reportable 12/24/19 04:53 Hyposegmented Neuts Not Reportable 12/24/19 04:53 Hypogranular Neuts Not Reportable 12/24/19 04:53 Smudge Cells Not Reportable 12/24/19 04:53 Toxic Granulation Not Reportable 12/24/19 04:53 Toxic Vacuolation Not Reportable 12/24/19 04:53 Dohle Bodies Not Reportable 12/24/19 04:53 Pelger-Huet Anomaly Not Reportable 12/24/19 04:53 Mervin Rods Not Reportable 12/24/19 04:53 Platelet Estimate Consistent w auto 12/24/19 04:53 Clumped Platelets Not Reportable 12/24/19 04:53 Plt Clumps, EDTA Not Reportable 12/24/19 04:53 Large Platelets Not Reportable 12/24/19 04:53 Giant Platelets Not Reportable 12/24/19 04:53 Platelet Satelliting Not Reportable 12/24/19 04:53 Plt Morphology Comment Not Reportable 12/24/19 04:53 RBC Morphology Not Reportable 12/24/19 04:53 Dimorphic RBCs Not Reportable 12/24/19 04:53 Polychromasia Rare 12/24/19 04:53 Hypochromasia 1+ 12/24/19 04:53 Poikilocytosis Not Reportable 12/24/19 04:53 Anisocytosis 1+ 12/24/19 04:53 Microcytosis Few 12/24/19 04:53 Macrocytosis Not Reportable 12/24/19 04:53 Spherocytes Not Reportable 12/24/19 04:53 Pappenheimer Bodies Not Reportable 12/24/19 04:53 Sickle Cells Not Reportable 12/24/19 04:53 Target Cells Not Reportable 12/24/19 04:53 Tear Drop Cells Not Reportable 12/24/19 04:53 Ovalocytes Few 12/24/19 04:53 Helmet Cells Not Reportable 12/24/19 04:53 Brink-[place] Bodies Not Reportable 12/24/19 04:53 [place] Rings Not Reportable 12/24/19 04:53 Britton Cells Not Reportable 12/24/19 04:53 Bite Cells Not Reportable 12/24/19 04:53 Crenated Cell Not Reportable 12/24/19 04:53 Elliptocytes Not Reportable 12/24/19 04:53 Acanthocytes (Spur) Not Reportable 12/24/19 04:53 Rouleaux Not Reportable 12/24/19 04:53 Hemoglobin C Crystals Not Reportable 12/24/19 04:53 Schistocytes Not Reportable 12/24/19 04:53 Malaria parasites Not Reportable 12/24/19 04:53 Gianni Bodies Not Reportable 12/24/19 04:53 Hem Pathologist Commnt No 12/24/19 04:53 PT 14.0 Sec. (12.2-14.9) 12/18/19 14:45 INR 1.10 (0.87-1.13) 12/18/19 14:45 APTT 29.4 Sec. (24.2-36.6) 12/18/19 14:45 D-Dimer 534.45 ng/mlDDU (0-234) H 12/18/19 14:45 ABG pH 7.350 pH Units (7.350-7.450) 12/24/19 04:20 ABG pCO2 56.4 mm Hg 12/24/19 04:20 ABG pO2 87.7 mm Hg (80.0-90.0) 12/24/19 04:20 ABG HCO3 30.4 mmol/L (20.0-26.0) H 12/24/19 04:20 ABG O2 Saturation 96.7 % (95.0-99.0) 12/24/19 04:20 ABG O2 Content 13.7 (0.0-44) 12/24/19 04:20 ABG Base Excess 3.9 mmol/L (-2.0-3.0) H 12/24/19 04:20 ABG Hemoglobin 10.3 gm/dl (14.0-18.0) L 12/24/19 04:20 ABG Carboxyhemoglobin 1.8 % (0.0-5.0) 12/24/19 04:20 ABG Methemoglobin 0.6 % (0.0-1.5) 12/24/19 04:20 Oxyhemoglobin 94.4 % (95.0-99.0) L 12/24/19 04:20 FiO2 45 % 12/24/19 04:20 Sodium 165 mmol/L (137-145) H* D 12/24/19 15:00 Potassium 3.2 mmol/L (3.6-5.0) L 12/24/19 04:53 Chloride 122.6 mmol/L (98-107) H 12/24/19 04:53 Carbon Dioxide 29 mmol/L (22-30) 12/24/19 04:53 Anion Gap 16 mmol/L 12/24/19 04:53 BUN 11 mg/dL (9-20) 12/24/19 04:53 Creatinine 1.4 mg/dL (0.8-1.5) 12/24/19 04:53 Estimated GFR > 60 ml/min 12/24/19 04:53 BUN/Creatinine Ratio 8 % 12/24/19 04:53 Glucose 168 mg/dL (75-100) H 12/24/19 04:53 POC Glucose 160 (70-105) H 12/24/19 16:28 Lactic Acid 1.40 mmol/L (0.7-2.0) 12/18/19 23:08 Calcium 9.2 mg/dL (8.4-10.2) 12/24/19 04:53 Phosphorus 4.40 mg/dL (2.5-4.5) 12/18/19 15:24 Magnesium 2.00 mg/dL (1.7-2.3) 12/18/19 14:45 Ferritin 83.4 ng/mL (13.0-400.0) 12/18/19 14:45 Total Bilirubin 0.30 mg/dL (0.1-1.2) 12/19/19 04:13 AST 85 units/L (5-40) H 12/19/19 04:13 ALT 61 units/L (7-56) H 12/19/19 04:13 Alkaline Phosphatase 80 units/L (35-129) 12/19/19 04:13 Ammonia 39.0 umol/L (25-60) 12/18/19 14:45 Lactate Dehydrogenase 235 units/L (91-180) H 12/18/19 14:45 Lactate Dehydrogenase 236 units/L (91-180) H 12/18/19 14:45 Total Creatine Kinase 40 units/L (55-170) L 12/18/19 14:45 Troponin T 0.011 ng/mL (0.00-0.029) 12/18/19 14:45 C-Reactive Protein 8.40 mg/dL (0.00-1.30) H 12/18/19 14:45 C-Reactive Protein 8.50 mg/dL (0.00-1.30) H 12/18/19 14:45 Total Protein 6.8 g/dL (6.3-8.2) 12/19/19 04:13 Albumin 3.0 g/dL (3.9-5) L 12/19/19 04:13 Albumin/Globulin Ratio 0.8 % 12/19/19 04:13 Procalcitonin 0.22 ng/mL (<0.15) 12/18/19 14:45 TSH 2.300 mlU/mL (0.270-4.200) 12/18/19 14:45 Urine Color Yellow (Yellow) 12/19/19 16:50 Urine Turbidity Clear (Clear) 12/19/19 16:50 Urine pH 5.0 (5.0-7.0) 12/19/19 16:50 Ur Specific [place] 1.010 (1.003-1.030) 12/19/19 16:50 Urine Protein <15 mg/dl mg/dL (Negative) 12/19/19 16:50 Urine Glucose (UA) 150 mg/dL (Negative) 12/19/19 16:50 Urine Ketones Neg mg/dL (Negative) 12/19/19 16:50 Urine Blood Neg (Negative) 12/19/19 16:50 Urine Nitrite Neg (Negative) 12/19/19 16:50 Urine Bilirubin Neg (Negative) 12/19/19 16:50 Urine Urobilinogen < 2.0 mg/dL (<2.0) 12/19/19 16:50 Ur Leukocyte Esterase Tr (Negative) 12/19/19 16:50 Urine WBC (Auto) 7.0 /HPF (0.0-6.0) H 12/19/19 16:50 Urine RBC (Auto) 4.0 /HPF (0.0-6.0) 12/19/19 16:50 U Epithel Cells (Auto) 1.0 /HPF (0-13.0) 12/19/19 16:50 Urine Bacteria (Auto) 1+ /HPF (Negative) 12/19/19 16:50 Urine Mucus Few /HPF 12/19/19 16:50 Digoxin 0.3 ng/mL (0.9-2.0) L 12/18/19 14:45 Salicylates < 0.3 mg/dL (2.8-20.0) L 12/18/19 14:45 Acetaminophen < 5.0 ug/mL (10.0-30.0) L 12/18/19 14:45 Plasma/Serum Alcohol < 0.01 % (0-0.07) 12/18/19 14:45 Coronavirus (PCR) Negative (Negative) 12/21/19 14:45 Blood Type A POSITIVE 12/18/19 14:45 Antibody Screen Negative 12/18/19 14:45 Microbiology: Microbiology 12/18/19 13:50 Peripheral/Venous Blood Culture - Final NO GROWTH AFTER 5 DAYS 12/18/19 13:50 Peripheral/Venous Blood Culture - Final NO GROWTH AFTER 5 DAYS Sykes/IV: Voiding Method Condom Catheter IV Catheter Type [Right Wrist] Peripheral IV IV Catheter Type [Right Hand] INT / Saline Lock IV Catheter Type [Left Hand] INT / Saline Lock IV Catheter Type [Left Forearm INT / Saline Lock ] IV Catheter Type [Left Triple Lumen Cath Internal Jugular] Active Medications - Current Medications Current Medications: Generic Name Dose Route Start Last Admin Trade Name Freq PRN Reason Stop Dose Admin Albuterol/Ipratropium 1 ampul 12/18/19 14:00 12/24/19 07:58 Duoneb *Not For Prn Use* IH 1 ampul TIDRT SHANEL Administration Lipase/Protease/Amylase 1 each 12/19/19 08:29 Pancrecorry Cabrera 10,500 Unit FEEDTUBE PRN PRN For Clogged Feeding Tube Aspirin 81 mg 12/19/19 10:00 12/24/19 11:21 Baby Aspirin PO 81 mg DAILY SHANEL Administration Famotidine 20 mg 12/20/19 10:00 12/24/19 11:21 Pepcid PO 20 mg BID SHANEL Administration Folic Acid 1 mg 12/19/19 10:00 12/24/19 11:21 Folvite PO 1 mg DAILY SHANEL Administration Heparin Sodium (Porcine) 5,000 unit 12/18/19 22:00 12/24/19 11:21 Heparin SUB-Q 5,000 unit Q12HR SHANEL Administration Hydrophilic Ointment 1 applic 12/18/19 12:35 Vaseline Lip Therapy TP Q2HR PRN Dry Lips Ceftriaxone Sodium 2 gm in 100 mls @ 200 mls/hr 12/19/19 10:00 12/24/19 11:20 Rocephin/Ns 2 Gm/100 Ml IV 12/25/19 10:29 200 mls/hr Q24HR SHANEL Administration Protocol Dextrose 1,000 mls @ 75 mls/hr 12/23/19 18:00 12/24/19 11:20 D5w IV 75 mls/hr DIRECT SHANEL Administration Insulin Glargine 5 units 12/21/19 22:00 12/23/19 22:46 Lantus SUB-Q 5 units QHS SHANEL Administration Insulin Human Lispro 0 unit 12/20/19 00:00 12/24/19 12:42 Humalog SUB-Q 3 unit Q6HR SHANEL Administration Protocol Levothyroxine Sodium 88 mcg 12/19/19 06:00 12/24/19 06:04 Synthroid PO Not Given QAM@0600 SHANEL Multi-Ingred Cream/Lotion/Oil/Oint 1 applic 12/18/19 12:35 Artificial Tears Ophth Oint OU Q4HR PRN Dry Eye(s) Potassium Chloride 20 meq 12/19/19 10:00 12/24/19 11:22 Potassium Chloride FEEDTUBE 20 meq QDAY SHANEL Administration Simple Syrup 15 ml 12/19/19 08:29 Simple Syrup FEEDTUBE PRN PRN Hypoglycemia Simple Syrup 30 ml 12/19/19 08:29 Simple Syrup FEEDTUBE PRN PRN Hypoglycemia Sodium Bicarbonate 325 mg 12/19/19 08:29 Sodium Bicarbonate FEEDTUBE PRN PRN For Clogged Feeding Tube Sodium Chloride 10 ml 12/18/19 22:00 12/24/19 11:20 Sodium Chloride Flush Syringe 10 Ml IV 10 ml BID SHANEL Administration Sodium Chloride 10 ml 12/18/19 13:31 Sodium Chloride Flush Syringe 10 Ml IV PRN PRN LINE FLUSH Nutrition/Malnutrition Assess - Dietary Evaluation Nutrition/Malnutrition Findings: Nutrition Notes Start: 12/19/19 08:16 Freq: Status: Active Protocol: Document 12/24/19 13:29 LM (Rec: 12/24/19 13:33 LM [email or web address]) Nutrition Notes Initial or Follow up Reassessment Current Diagnosis Diabetes,Sepsis,Hypertension, Heart Failure,Respiratory Failure Other Pertinent Diagnosis Suspected COVID-19, pneu Current Diet [facility] soft Labs/Tests Na 145 K 3.2 Pertinent Medications D5w at 75ml/hr Height 6 ft 2 in Weight 117 kg [place] Body Weight (kg) 86.36 BMI 33.1 Weight Status Obese Subjective/Other Information Pt extubated and Diet [facility] softRN stated that pt is refusing meals and all liquids. RN stated she will speak to MD about dobhoff. Percent of energy/protein needs met: 0%/0% Burn Absent Trauma Absent Current % PO Negligible Minimum of two criteria No physical signs of malnutrition #1 Nutrition Diagnosis Inadequate oral intake Diagnosis Progress(for reassessment Continues documentation) Is patient on ventilator? No Is Patient Ambulatory and/or Out of Bed No REE[facility] 2469.960 Kcal/Kg value to use for calculation 17 Approximate Energy Requirements Using 1989 kcal/Kg Calculation Used for Recommendations Kcal/kg Additional Notes Protein: 82-102g (0.8-1g/kg using AdjBW 102kg) Fluid: 1ml/kcal Nutrition Intervention Change Diet Order: recommend TF when medically feasible Goal #1 Meet at least 80% of kcal and protein needs Anticipated Discharge Needs: unable to determine at this time Follow-Up By: 12/27/19 Additional Comments F/U for intakes/dobhoff
[2019-12-24] MEDS: INSULIN GLARGINE 100 UNITS/ML SUB-Q SCH (21:18)
--- NOTE | 2019-12-25 00:08 | XRay Report ---
ABDOMEN 1 VIEW(S) INDICATION: To verify dobhoff placement COMPARISON: None available. FINDINGS: Dobbhoff feeding tube has tip in the stomach Bowel gas pattern: Within normal limits. No dilated loops of large or small bowel. Free air: None. Calcified gallstones: None seen. Calcified urinary tract calculi: None seen. Additional Findings: None. Skeletal structures: No acute abnormality. IMPRESSION: 1. No acute findings. Signer Name: Jose Francisco Amezcua MD Signed: 12/25/2019 12:04 AM Workstation Name: [email or web address]
[2019-12-25] MEDS: FAMOTIDINE 20 MG TAB PO SCH ×3 (00:37→23:26)
[2019-12-25] MEDS: LEVOTHYROXINE 88 MCG TAB PO SCH (05:15)
[2019-12-25] MEDS: INSULIN LISPRO 100 UNIT/ML SUB-Q SCH ×5 (06:00→23:23)
[2019-12-25 06:15] LABS: Mean Corpuscular HGB Conc 30 % (32-34); Mean Corpuscular Volume 84 fl (84-94); Platelet Count 181 K/mm3 (140-440); Red Blood Count 3.89 M/mm3 (3.65-5.03); Red Cell Distribution Width 19.4 % (13.2-15.2)
[2019-12-25 06:30] LABS: BUN/Creatinine Ratio 8; Blood Urea Nitrogen 11 mg/dL (9-20); Hemolysis Index 4
[2019-12-25 06:32] LABS: Hematocrit 32.5 % (35.5-45.6); Hemoglobin 9.7 gm/dl (11.8-15.2)
[2019-12-25] MEDS: IPRATROPIUM/ALBUTEROL SULFATE 3 ML AMPUL.NEB IH SCH ×3 (07:55→20:34)
[2019-12-25] MEDS: POTASSIUM CHLORIDE 10 MEQ 10 MEQ/100 ML BAG IV SCH ×4 (08:36→14:46)
--- NOTE | 2019-12-25 08:46 | Progress Note ---
Assessment and Plan Assessment and plan: 59-year-old male past medical history diastolic CHF, OHS, HTN, DM 2, hypothyroidism admitted with confusion after being found by a neighbor. On arrival patient was found to be lethargic, and in respiratory distress and hypoxic. Patient was intubated in the ER because of hypoxic respiratory failure. Also noted to be hypotensive, placed on pressor admitted to ICU. Patient is negative for COVID-19, being treated for bilateral pneumonia. JAGDEEP improved with IV fluid, ID and critical care following. Chest x-ray: Left lower lobe airspace disease CT chest: 1. Patchy bilateral nodular and consolidative airspace opacities which are nonspecific but likely related to the reported history of Covid. 2. Multiple enlarged partially visualized left supraclavicular and lower cervical chain lymph nodes. While these are nonspecific and may be reactive, a neoplastic process is possible, recommend short interval follow-up after patient recovers from the acute episode. / Acute hypoxic respiratory failure Likely from bilateral pneumonia and diastolic heart failure Patient intubated, placed on ventilatory support. critical care team consulted in ED. Patient is extubated, continue nebulizer breathing treatment and as needed biPAP We will also do a swallow eval / Sepsis with shock cont IV antibiotic therapy, IV fluid resuscitation therapy, monitor urine output every shift, maintain mean arterial blood pressure greater than or equal to 65, s/p IV pressor support. / Suspected 2019-nCoV infection -ruled out with 2 negative test / Diastolic CHF Preserved EF based on prior echocardiogram Monitor weight strict I's/O, daily weight, monitor urine output every shift, submental oxygen, blood pressure control. /JAGDEEP, due to vasomotor nephropathy, present on admission -Creatinine improving, continue IV fluid -Likely due to severe sepsis and hypotension /hypernatremia, -due to dehydration and sepsis -change fluid to D5W - monitor BMP /Hypokalemia, replete / Diabetes type II Initiate tube feeding diet Sliding scale insulin, Accu-Chek, hypoglycemia protocol. / Hypothyroidism Synthroid therapy, supportive care. / Bilateral pneumonia Pneumonia protocol: IV antibiotic therapy with rocephin for total 7 days, pulse oximetry, /Cervical lymphadenopathy -Reactive versus infectious process versus malignancy -Need repeat scanning and further staging when medically more stable -Pulmonology and ID following / HTN (hypertension) -hold BP meds as patient is hypotensive Monitor blood pressure every shift, continue medical management. /History of obstructive sleep apnea -Patient currently on mechanical ventilation /Acute metabolic encephalopathy Secondary to hyponatremia. /Urinary retention, suspected in the ER -Patient having good urine output now, will hold any CT scan -Continue IV fluid / DVT prophylaxis SCD to bilateral lower extremities while in bed, prophylactic heparin 12/19/19: Negative for COVID-19, continue pressor and wean off as tolerated, con tinue IV antibiotic and follow cultures. 12/19: Weaned off from pressor, sodium 156>157>153 today, creatinine 1.4>1.2>1.0. Continue IV fluid. Wean off from vent as tolerated. Follow ID recommendation 12/20: Extubated today, continue to monitor in the ICU overnight if clinically stable with transfer out to [facility]/telemetry tomorrow a.m.. Sodium 149 today, continue IV fluid and monitor BMP. Swallow eval, PT OT eval. 2nd text for covid is negative 12/21: transfer to IM, start on gentle hydration. mechanical soft diet 12/22: placed back on bipap, Na 163 - start on D5W, monitor bmp 12/23: spoke to sister, updated [id number], also discussed Pulmonary, will likely need LTAC. Obtain Nephrology due to persistent Hypernatremia. Will start on free water and continue to monitor. Remains of restriants for safety due to intermittent confusion. 12/24: Still with intermittent encephalopathy. Requiring restraints. Hyponatremia still persist continue hypotonic solution. Nephrology consulted. Free water started this morning will increase dose. Replace potassium as hypokalemia still persist The high probability of a clinically significant, sudden or life threatening deterioration of the [renal, pulmonary] system(s) required my full and direct attention, intervention and personal management. The aggregate critical care time was [35] minutes. This time is in addition to time spent performing reported procedures but includes the following: [x] Data Review and interpretation [x] Patient assessment and monitoring of vital signs [x] Documentation [x] Medication orders and management History Interval history: Patient seen and examined, still on BIPAP, Hospitalist Physical - Physical exam Narrative exam: GENERAL: well-developed obese white male lying on bed on restriants due to confusion and pulling, still with some respiratory distress HEENT: Normocephalic. Atraumatic. No conjunctival congestion or icterus. Espinoza torre has moist mucous membranes. NECK: Supple. Trachea midline. CHEST/LUNGS: Coarse breath sound auscultated bilaterally, HEART/CARDIOVASCULAR: Regular in rate and rhythm. S1 and S2 positive. ABDOMEN: Abdomen is soft, nontender. Patient has normal bowel sounds. SKIN: There is no rash. Warm and dry. NEURO: follows some command, AMS, no focal deficits MUSCULOSKELETAL: No joint effusion or tenderness. EXTRIMITY: No edema, no cyanosis or clubbing. PSYCH: Cooperative - Constitutional Vitals: Temp Pulse Resp BP Pulse Ox 100.2 F H 87 38 H 118/67 94 12/25/19 03:22 12/25/19 08:24 12/25/19 08:24 12/25/19 08:24 12/25/19 08:24 General appearance: Present: severe distress HEART Score - HEART Score Troponin: Troponin T 0.011 ng/mL (0.00-0.029) 12/18/19 14:45 Results - Labs CBC & Chem 7: 12/25/19 05:46 12/25/19 05:46 Labs: Laboratory Last Values WBC 4.9 K/mm3 (4.5-11.0) 12/25/19 05:46 RBC 3.89 M/mm3 (3.65-5.03) 12/25/19 05:46 Hgb 9.7 gm/dl (11.8-15.2) L 12/25/19 05:46 Hct 32.5 % (35.5-45.6) L 12/25/19 05:46 MCV 84 fl (84-94) 12/25/19 05:46 MCH 25 pg (28-32) L 12/25/19 05:46 MCHC 30 % (32-34) L 12/25/19 05:46 RDW 19.4 % (13.2-15.2) H 12/25/19 05:46 Plt Count 181 K/mm3 (140-440) 12/25/19 05:46 Lymph % (Auto) 9.0 % (13.4-35.0) L 12/22/19 05:15 [place] % (Auto) 12.3 % (0.0-7.3) H 12/22/19 05:15 Eos % (Auto) 5.0 % (0.0-4.3) H 12/22/19 05:15 Baso % (Auto) 0.5 % (0.0-1.8) 12/22/19 05:15 Lymph # 0.5 K/mm3 (1.2-5.4) L 12/22/19 05:15 [place] # 0.7 K/mm3 (0.0-0.8) 12/22/19 05:15 Eos # 0.3 K/mm3 (0.0-0.4) 12/22/19 05:15 Baso # 0.0 K/mm3 (0.0-0.1) 12/22/19 05:15 Add Manual Diff Complete 12/24/19 04:53 Total Counted 100 12/24/19 04:53 Seg Neutrophils % 73.2 % (40.0-70.0) H 12/22/19 05:15 Seg Neuts % (Manual) 60.0 % (40.0-70.0) 12/24/19 04:53 Band Neutrophils % 0 % 12/24/19 04:53 Lymphocytes % (Manual) 20.0 % (13.4-35.0) 12/24/19 04:53 Reactive Lymphs % (Man) 0 % 12/24/19 04:53 Monocytes % (Manual) 15.0 % (0.0-7.3) H 12/24/19 04:53 Eosinophils % (Manual) 4.0 % (0.0-4.3) 12/24/19 04:53 Basophils % (Manual) 0 % (0.0-1.8) 12/24/19 04:53 Metamyelocytes % 1.0 % 12/24/19 04:53 Myelocytes % 0 % 12/24/19 04:53 Promyelocytes % 0 % 12/24/19 04:53 Blast Cells % 0 % 12/24/19 04:53 Nucleated RBC % Not Reportable 12/24/19 04:53 Seg Neutrophils # 4.4 K/mm3 (1.8-7.7) 12/22/19 05:15 Seg Neutrophils # Man 3.5 K/mm3 (1.8-7.7) 12/24/19 04:53 Band Neutrophils # 0.0 K/mm3 12/24/19 04:53 Lymphocytes # (Manual) 1.2 K/mm3 (1.2-5.4) 12/24/19 04:53 Abs React Lymphs (Man) 0.0 K/mm3 12/24/19 04:53 Monocytes # (Manual) 0.9 K/mm3 (0.0-0.8) H 12/24/19 04:53 Eosinophils # (Manual) 0.2 K/mm3 (0.0-0.4) 12/24/19 04:53 Basophils # (Manual) 0.0 K/mm3 (0.0-0.1) 12/24/19 04:53 Metamyelocytes # 0.1 K/mm3 12/24/19 04:53 Myelocytes # 0.0 K/mm3 12/24/19 04:53 Promyelocytes # 0.0 K/mm3 12/24/19 04:53 Blast Cells # 0.0 K/mm3 12/24/19 04:53 WBC Morphology Not Reportable 12/24/19 04:53 Hypersegmented Neuts Not Reportable 12/24/19 04:53 Hyposegmented Neuts Not Reportable 12/24/19 04:53 Hypogranular Neuts Not Reportable 12/24/19 04:53 Smudge Cells Not Reportable 12/24/19 04:53 Toxic Granulation Not Reportable 12/24/19 04:53 Toxic Vacuolation Not Reportable 12/24/19 04:53 Dohle Bodies Not Reportable 12/24/19 04:53 Pelger-Huet Anomaly Not Reportable 12/24/19 04:53 Mervin Rods Not Reportable 12/24/19 04:53 Platelet Estimate Consistent w auto 12/24/19 04:53 Clumped Platelets Not Reportable 12/24/19 04:53 Plt Clumps, EDTA Not Reportable 12/24/19 04:53 Large Platelets Not Reportable 12/24/19 04:53 Giant Platelets Not Reportable 12/24/19 04:53 Platelet Satelliting Not Reportable 12/24/19 04:53 Plt Morphology Comment Not Reportable 12/24/19 04:53 RBC Morphology Not Reportable 12/24/19 04:53 Dimorphic RBCs Not Reportable 12/24/19 04:53 Polychromasia Rare 12/24/19 04:53 Hypochromasia 1+ 12/24/19 04:53 Poikilocytosis Not Reportable 12/24/19 04:53 Anisocytosis 1+ 12/24/19 04:53 Microcytosis Few 12/24/19 04:53 Macrocytosis Not Reportable 12/24/19 04:53 Spherocytes Not Reportable 12/24/19 04:53 Pappenheimer Bodies Not Reportable 12/24/19 04:53 Sickle Cells Not Reportable 12/24/19 04:53 Target Cells Not Reportable 12/24/19 04:53 Tear Drop Cells Not Reportable 12/24/19 04:53 Ovalocytes Few 12/24/19 04:53 Helmet Cells Not Reportable 12/24/19 04:53 [place] Bodies Not Reportable 12/24/19 04:53 [place] Rings Not Reportable 12/24/19 04:53 [place] Cells Not Reportable 12/24/19 04:53 Bite Cells Not Reportable 12/24/19 04:53 Crenated Cell Not Reportable 12/24/19 04:53 Elliptocytes Not Reportable 12/24/19 04:53 Acanthocytes (Spur) Not Reportable 12/24/19 04:53 Rouleaux Not Reportable 12/24/19 04:53 Hemoglobin C Crystals Not Reportable 12/24/19 04:53 Schistocytes Not Reportable 12/24/19 04:53 Malaria parasites Not Reportable 12/24/19 04:53 [place] Bodies Not Reportable 12/24/19 04:53 Hem Pathologist Commnt No 12/24/19 04:53 PT 14.0 Sec. (12.2-14.9) 12/18/19 14:45 INR 1.10 (0.87-1.13) 12/18/19 14:45 APTT 29.4 Sec. (24.2-36.6) 12/18/19 14:45 D-Dimer 534.45 ng/mlDDU (0-234) H 12/18/19 14:45 ABG pH 7.350 pH Units (7.350-7.450) 12/24/19 04:20 ABG pCO2 56.4 mm Hg 12/24/19 04:20 ABG pO2 87.7 mm Hg (80.0-90.0) 12/24/19 04:20 ABG HCO3 30.4 mmol/L (20.0-26.0) H 12/24/19 04:20 ABG O2 Saturation 96.7 % (95.0-99.0) 12/24/19 04:20 ABG O2 Content 13.7 (0.0-44) 12/24/19 04:20 ABG Base Excess 3.9 mmol/L (-2.0-3.0) H 12/24/19 04:20 ABG Hemoglobin 10.3 gm/dl (14.0-18.0) L 12/24/19 04:20 ABG Carboxyhemoglobin 1.8 % (0.0-5.0) 12/24/19 04:20 ABG Methemoglobin 0.6 % (0.0-1.5) 12/24/19 04:20 Oxyhemoglobin 94.4 % (95.0-99.0) L 12/24/19 04:20 FiO2 45 % 12/24/19 04:20 Sodium 166 mmol/L (137-145) H* 12/25/19 05:46 Potassium 2.9 mmol/L (3.6-5.0) L* 12/25/19 05:46 Chloride 124.5 mmol/L (98-107) H 12/25/19 05:46 Carbon Dioxide 30 mmol/L (22-30) 12/25/19 05:46 Anion Gap 13 mmol/L 12/25/19 05:46 BUN 11 mg/dL (9-20) 12/25/19 05:46 Creatinine 1.4 mg/dL (0.8-1.5) 12/25/19 05:46 Estimated GFR > 60 ml/min 12/25/19 05:46 BUN/Creatinine Ratio 8 % 12/25/19 05:46 Glucose 190 mg/dL (75-100) H 12/25/19 05:46 POC Glucose 194 (70-105) H 12/25/19 05:38 Lactic Acid 1.40 mmol/L (0.7-2.0) 12/18/19 23:08 Calcium 9.0 mg/dL (8.4-10.2) 12/25/19 05:46 Phosphorus 4.40 mg/dL (2.5-4.5) 12/18/19 15:24 Magnesium 2.00 mg/dL (1.7-2.3) 12/18/19 14:45 Ferritin 83.4 ng/mL (13.0-400.0) 12/18/19 14:45 Total Bilirubin 0.30 mg/dL (0.1-1.2) 12/19/19 04:13 AST 85 units/L (5-40) H 12/19/19 04:13 ALT 61 units/L (7-56) H 12/19/19 04:13 Alkaline Phosphatase 80 units/L (35-129) 12/19/19 04:13 Ammonia 39.0 umol/L (25-60) 12/18/19 14:45 Lactate Dehydrogenase 235 units/L (91-180) H 12/18/19 14:45 Lactate Dehydrogenase 236 units/L (91-180) H 12/18/19 14:45 Total Creatine Kinase 40 units/L (55-170) L 12/18/19 14:45 Troponin T 0.011 ng/mL (0.00-0.029) 12/18/19 14:45 C-Reactive Protein 8.40 mg/dL (0.00-1.30) H 12/18/19 14:45 C-Reactive Protein 8.50 mg/dL (0.00-1.30) H 12/18/19 14:45 Total Protein 6.8 g/dL (6.3-8.2) 12/19/19 04:13 Albumin 3.0 g/dL (3.9-5) L 12/19/19 04:13 Albumin/Globulin Ratio 0.8 % 12/19/19 04:13 Procalcitonin 0.22 ng/mL (<0.15) 12/18/19 14:45 TSH 2.300 mlU/mL (0.270-4.200) 12/18/19 14:45 Urine Color Yellow (Yellow) 12/19/19 16:50 Urine Turbidity Clear (Clear) 12/19/19 16:50 Urine pH 5.0 (5.0-7.0) 12/19/19 16:50 Ur Specific [place] 1.010 (1.003-1.030) 12/19/19 16:50 Urine Protein <15 mg/dl mg/dL (Negative) 12/19/19 16:50 Urine Glucose (UA) 150 mg/dL (Negative) 12/19/19 16:50 Urine Ketones Neg mg/dL (Negative) 12/19/19 16:50 Urine Blood Neg (Negative) 12/19/19 16:50 Urine Nitrite Neg (Negative) 12/19/19 16:50 Urine Bilirubin Neg (Negative) 12/19/19 16:50 Urine Urobilinogen < 2.0 mg/dL (<2.0) 12/19/19 16:50 Ur Leukocyte Esterase Tr (Negative) 12/19/19 16:50 Urine WBC (Auto) 7.0 /HPF (0.0-6.0) H 12/19/19 16:50 Urine RBC (Auto) 4.0 /HPF (0.0-6.0) 12/19/19 16:50 U Epithel Cells (Auto) 1.0 /HPF (0-13.0) 12/19/19 16:50 Urine Bacteria (Auto) 1+ /HPF (Negative) 12/19/19 16:50 Urine Mucus Few /HPF 12/19/19 16:50 Digoxin 0.3 ng/mL (0.9-2.0) L 12/18/19 14:45 Salicylates < 0.3 mg/dL (2.8-20.0) L 12/18/19 14:45 Acetaminophen < 5.0 ug/mL (10.0-30.0) L 12/18/19 14:45 Plasma/Serum Alcohol < 0.01 % (0-0.07) 12/18/19 14:45 Coronavirus (PCR) Negative (Negative) 12/21/19 14:45 Blood Type A POSITIVE 12/18/19 14:45 Antibody Screen Negative 12/18/19 14:45 Sykes/IV: Voiding Method Condom Catheter IV Catheter Type [Right Wrist] Peripheral IV IV Catheter Type [Right Hand] INT / Saline Lock IV Catheter Type [Left Hand] INT / Saline Lock IV Catheter Type [Left Forearm INT / Saline Lock ] IV Catheter Type [Left Triple Lumen Cath Internal Jugular] Active Medications - Current Medications Current Medications: Generic Name Dose Route Start Last Admin Trade Name Freq PRN Reason Stop Dose Admin Albuterol/Ipratropium 1 ampul 12/18/19 14:00 12/25/19 07:55 Duoneb *Not For Prn Use* IH 1 ampul TIDRT SHANEL Administration Lipase/Protease/Amylase 1 each 12/19/19 08:29 Pancrecorry Cabrera 10,500 Unit FEEDTUBE PRN PRN For Clogged Feeding Tube Aspirin 81 mg 12/19/19 10:00 12/24/19 11:21 Baby Aspirin PO 81 mg DAILY SHANEL Administration Famotidine 20 mg 12/20/19 10:00 12/25/19 00:37 Pepcid PO 20 mg BID SHANEL Administration Folic Acid 1 mg 12/19/19 10:00 12/24/19 11:21 Folvite PO 1 mg DAILY SHANEL Administration Heparin Sodium (Porcine) 5,000 unit 12/18/19 22:00 12/24/19 21:12 Heparin SUB-Q 5,000 unit Q12HR SHNAEL Administration Hydrophilic Ointment 1 applic 12/18/19 12:35 Vaseline Lip Therapy TP Q2HR PRN Dry Lips Ceftriaxone Sodium 2 gm in 100 mls @ 200 mls/hr 12/19/19 10:00 12/24/19 11:20 Rocephin/Ns 2 Gm/100 Ml IV 12/25/19 10:29 200 mls/hr Q24HR SHANEL Administration Protocol Dextrose 1,000 mls @ 75 mls/hr 12/23/19 18:00 12/24/19 23:53 D5w IV 75 mls/hr DIRECT SHANEL Administration Potassium Chloride 10 meq in 100 mls @ 100 mls/hr 12/25/19 08:00 12/25/19 08:36 Kcl 10meq/100ml IV 12/25/19 09:59 100 mls/hr Q1H SHANEL Administration Insulin Glargine 5 units 12/21/19 22:00 12/24/19 21:18 Lantus SUB-Q 5 units QHS SHANEL Administration Insulin Human Lispro 0 unit 12/20/19 00:00 12/25/19 06:00 Humalog SUB-Q 3 unit Q6HR SHANEL Administration Protocol Levothyroxine Sodium 88 mcg 12/19/19 06:00 12/25/19 05:15 Synthroid PO 88 mcg QAM@0600 SHANEL Administration Multi-Ingred Cream/Lotion/Oil/Oint 1 applic 12/18/19 12:35 Artificial Tears Ophth Oint OU Q4HR PRN Dry Eye(s) Potassium Chloride 20 meq 12/19/19 10:00 12/24/19 11:22 Potassium Chloride FEEDTUBE 20 meq QDAY SHANEL Administration Potassium Chloride 40 meq 12/25/19 07:18 Potassium Chloride FEEDTUBE 12/25/19 10:00 ONCE NR Simple Syrup 15 ml 12/19/19 08:29 Simple Syrup FEEDTUBE PRN PRN Hypoglycemia Simple Syrup 30 ml 12/19/19 08:29 Simple Syrup FEEDTUBE PRN PRN Hypoglycemia Sodium Bicarbonate 325 mg 12/19/19 08:29 Sodium Bicarbonate FEEDTUBE PRN PRN For Clogged Feeding Tube Sodium Chloride 10 ml 12/18/19 22:00 12/24/19 21:14 Sodium Chloride Flush Syringe 10 Ml IV 10 ml BID SHANEL Administration Sodium Chloride 10 ml 12/18/19 13:31 Sodium Chloride Flush Syringe 10 Ml IV PRN PRN LINE FLUSH Nutrition/Malnutrition Assess - Dietary Evaluation Nutrition/Malnutrition Findings: Nutrition Notes Start: 12/19/19 08:16 Freq: Status: Active Protocol: Document 12/24/19 13:29 LM (Rec: 12/24/19 13:33 LM [email or web address]) Nutrition Notes Initial or Follow up Reassessment Current Diagnosis Diabetes,Sepsis,Hypertension, Heart Failure,Respiratory Failure Other Pertinent Diagnosis Suspected COVID-19, pneu Current Diet [facility] Labs/Tests Na 145 K 3.2 Pertinent Medications D5w at 75ml/hr Height 6 ft 2 in Weight 117 kg [place] Body Weight (kg) 86.36 BMI 33.1 Weight Status Obese Subjective/Other Information [facility] is refusing meals and all liquids. RN stated she will speak to MD about dobhoff. Percent of energy/protein needs met: 0%/0% Burn Absent Trauma Absent Current % PO Negligible Minimum of two criteria No physical signs of malnutrition #1 Nutrition Diagnosis Inadequate oral intake Diagnosis Progress(for reassessment Continues documentation) Is patient on ventilator? No Is Patient Ambulatory and/or Out of Bed No REE-([facility]-confined to bed) 2469.960 Kcal/Kg value to use for calculation 17 Approximate Energy Requirements Using 1989 kcal/Kg Calculation Used for Recommendations Kcal/kg Additional Notes Protein: 82-102g (0.8-1g/kg using AdjBW 102kg) Fluid: 1ml/kcal Nutrition Intervention Change Diet Order: recommend TF when medically feasible Goal #1 Meet at least 80% of kcal and protein needs Anticipated Discharge Needs: unable to determine at this time Follow-Up By: 12/27/19 Additional Comments F/U for intakes/dobhoff
[2019-12-25] MEDS: cefTRIAXone/NS 2 GM/100 ML 2 GM/100 ML BAG IV SCH (09:57)
[2019-12-25] MEDS: FOLIC ACID 1 MG TAB PO SCH (09:57)
[2019-12-25] MEDS: HEPARIN 5,000 UNIT/1 ML VIAL SUB-Q SCH ×2 (09:58→23:26)
[2019-12-25] MEDS: ASPIRIN 81 MG TAB CHEW PO SCH (09:58)
[2019-12-25] MEDS: POTASSIUM CHLORIDE 20 MEQ PACKET FEEDTUBE NR ×2 (09:58→09:59)
[2019-12-25] MEDS: POTASSIUM CHLORIDE 20 MEQ PACKET FEEDTUBE SCH (10:06)
[2019-12-25] MEDS: DEXTROSE 5% IN WATER 1,000 ML IV SCH (10:16)
--- NOTE | 2019-12-25 10:21 | Progress Note ---
Assessment and Plan Acute Hypoxemic Respiratory Failure s/p extubation- on BIPAP Severe Sepsis with Shock Bilateral Pneumonia Atelectasis COVID-19 NEGATIVE Morbid Obesity H/O CHF JOE Hypernatremia Continue BIPAP for the next 24 hours ABG ordered Hypotonic solution for hypernatremia, free water flushes via the small bowel feeding tube Aspiration precautions PT/OT, increase activity Fall precautions Complete Rocephin To remain in IMCU Discussed wtih RT and RN - continue to wean supplemental oxygen for target O2 sats > 90% acutely - continue bronchodilators with pulmonary hygiene per RT - continue accuchecks with glycemic control per SSI (Target blood glucose of 140-180 mg/dL; avoid hypoglycemia) - continue to avoid benzodiazepines, reduce the possibility of delirium - Maintenance of sleep-wake cycle, avoid delirium - G.I. & VTE prophylaxis - continue mobility protocols for pressure ulcer prevention - Monitor hemodynamics closely-episodes of asymptomatic bradycardia - continue other care per attending / other consultants Subjective Date of service: 12/25/19 Principal diagnosis: Ac. Hypoxemic Resp Failure; Septic Shock; Magdiel. PNA; PUI COVID-19; CHF; JOE Interval history: Patient is seen today for: Acute Hypoxemic Respiratory Failure; Severe Sepsis with Shock; Bilateral Pneumonia; Morbid Obesity; H/O CHF; JOE Seen and examined at bedside; 24hour events reviewed; nursing and respiratory care staff consulted; no adverse overnight events reported to me; resting peacefully in bed; extubated with ongoing episodes of desaturations requiring BIPAP Small bowel feeding tube placed, some tacyhpnea Objective Vital Signs - 12hr 12/24/19 12/24/19 12/24/19 23:00 23:30 23:44 Temperature 98.7 F Pulse Rate 86 88 Pulse Rate [ Bilateral] Pulse Rate [ From Monitor] Respiratory 43 H 45 H Rate Respiratory Rate [Bilateral ] Blood Pressure 116/68 132/69 O2 Sat by Pulse 91 90 Oximetry 12/25/19 12/25/19 12/25/19 00:00 00:17 01:00 Temperature Pulse Rate 89 91 H 91 H Pulse Rate [ Bilateral] Pulse Rate [ 73 From Monitor] Respiratory 50 H 49 H 38 H Rate Respiratory Rate [Bilateral ] Blood Pressure 132/69 120/57 120/57 O2 Sat by Pulse 92 92 93 Oximetry 12/25/19 12/25/19 12/25/19 02:00 03:00 03:22 Temperature 100.2 F H Pulse Rate 85 90 Pulse Rate [ Bilateral] Pulse Rate [ From Monitor] Respiratory 38 H 38 H Rate Respiratory Rate [Bilateral ] Blood Pressure 117/53 O2 Sat by Pulse 92 92 Oximetry 12/25/19 12/25/19 12/25/19 04:00 04:14 05:00 Temperature Pulse Rate 81 78 79 Pulse Rate [ Bilateral] Pulse Rate [ 76 From Monitor] Respiratory 34 H 30 H 35 H Rate Respiratory Rate [Bilateral ] Blood Pressure 108/57 108/57 105/54 O2 Sat by Pulse 92 93 91 Oximetry 12/25/19 12/25/19 12/25/19 06:00 07:00 08:00 Temperature Pulse Rate 75 68 90 Pulse Rate [ Bilateral] Pulse Rate [ From Monitor] Respiratory 41 H 15 45 H Rate Respiratory Rate [Bilateral ] Blood Pressure 123/60 105/54 148/62 O2 Sat by Pulse 91 68 L 93 Oximetry 12/25/19 12/25/19 12/25/19 08:23 08:24 09:00 Temperature Pulse Rate 87 93 H Pulse Rate [ 88 Bilateral] Pulse Rate [ From Monitor] Respiratory 38 H 45 H Rate Respiratory 43 H Rate [Bilateral ] Blood Pressure 118/67 118/67 O2 Sat by Pulse 94 94 Oximetry 12/25/19 10:00 Temperature Pulse Rate 90 Pulse Rate [ Bilateral] Pulse Rate [ From Monitor] Respiratory 42 H Rate Respiratory Rate [Bilateral ] Blood Pressure 122/58 O2 Sat by Pulse 94 Oximetry Constitutional: lethargic, other (BIPAP) Eyes: non-icteric ENT: oropharynx moist, other Neck: supple, no lymphadenopathy, no JVD Effort: mildly labored Ascultation: Bilateral: diminished breath sounds, rhonchi Percussion: Bilateral: not dull Cardiovascular: regular rate and rhythm, other (S1,S2) Gastrointestinal: hypoactive bowel sounds, soft, non-tender, other (distended) Integumentary: rash (stasis dermatyitis) Extremities: no cyanosis, pink and warm, pulses normal, no ischemia or ronnell chiae, edema (trace) Neurologic: normal mental status, non-focal exam, pupils equal and round, CN II- XII normal, motor strength normal and (obeys simple commands) CBC and BMP: 12/26/19 08:07 12/26/19 08:07 ABG, PT/INR, D-dimer: ABG ABG pH 7.350 pH Units (7.350-7.450) 12/24/19 04:20 ABG pCO2 56.4 mm Hg 12/24/19 04:20 ABG pO2 87.7 mm Hg (80.0-90.0) 12/24/19 04:20 ABG O2 Saturation 96.7 % (95.0-99.0) 12/24/19 04:20 PT/INR, D-dimer PT 14.0 Sec. (12.2-14.9) 12/18/19 14:45 INR 1.10 (0.87-1.13) 12/18/19 14:45 D-Dimer 534.45 ng/mlDDU (0-234) H 12/18/19 14:45 Abnormal lab findings: Abnormal Labs 12/18/19 12/18/19 12/18/19 12:23 14:45 14:45 Hgb 10.4 L Hct 35.2 L MCH 25 L MCHC 30 L RDW 18.8 H Lymph % (Auto) Stephenson % (Auto) 11.6 H Eos % (Auto) 4.8 H Lymph # Stephenson # 1.0 H Seg Neutrophils % Monocytes % (Manual) Monocytes # (Manual) D-Dimer ABG pH ABG pO2 ABG HCO3 ABG O2 Saturation ABG Base Excess ABG Hemoglobin Oxyhemoglobin Sodium Potassium Chloride Carbon Dioxide BUN Glucose POC Glucose 328 H Lactic Acid Calcium AST ALT Lactate Dehydrogenase Total Creatine Kinase 40 L C-Reactive Protein Albumin Urine WBC (Auto) Digoxin Salicylates Acetaminophen 12/18/19 12/18/19 12/18/19 14:45 14:45 14:45 Hgb Hct MCH MCHC RDW Lymph % (Auto) Stephenson % (Auto) Eos % (Auto) Lymph # Stephenson # Seg Neutrophils % Monocytes % (Manual) Monocytes # (Manual) D-Dimer 534.45 H ABG pH ABG pO2 ABG HCO3 ABG O2 Saturation ABG Base Excess ABG Hemoglobin Oxyhemoglobin Sodium 156 H Potassium Chloride 112.3 H Carbon Dioxide 31 H BUN 32 H Glucose 328 H POC Glucose Lactic Acid Calcium AST ALT Lactate Dehydrogenase 235 H Total Creatine Kinase C-Reactive Protein 8.50 H Albumin 3.6 L Urine WBC (Auto) Digoxin 0.3 L Salicylates < 0.3 L Acetaminophen 12/18/19 12/18/19 12/18/19 14:45 14:45 16:00 Hgb Hct MCH MCHC RDW Lymph % (Auto) Stephenson % (Auto) Eos % (Auto) Lymph # Stephenson # Seg Neutrophils % Monocytes % (Manual) Monocytes # (Manual) D-Dimer ABG pH ABG pO2 69.8 L ABG HCO3 31.8 H ABG O2 Saturation ABG Base Excess 5.4 H ABG Hemoglobin 10.0 L Oxyhemoglobin 92.9 L Sodium Potassium Chloride Carbon Dioxide BUN Glucose 314 H POC Glucose Lactic Acid Calcium AST ALT Lactate Dehydrogenase 236 H Total Creatine Kinase C-Reactive Protein 8.40 H Albumin Urine WBC (Auto) Digoxin Salicylates Acetaminophen < 5.0 L 12/18/19 12/18/19 12/18/19 16:35 18:30 22:56 Hgb Hct MCH MCHC RDW Lymph % (Auto) Stephenson % (Auto) Eos % (Auto) Lymph # Stephenson # Seg Neutrophils % Monocytes % (Manual) Monocytes # (Manual) D-Dimer ABG pH ABG pO2 ABG HCO3 ABG O2 Saturation ABG Base Excess ABG Hemoglobin Oxyhemoglobin Sodium Potassium Chloride Carbon Dioxide BUN Glucose POC Glucose 310 H 353 H Lactic Acid 2.50 H* Calcium AST ALT Lactate Dehydrogenase Total Creatine Kinase C-Reactive Protein Albumin Urine WBC (Auto) Digoxin Salicylates Acetaminophen 12/19/19 12/19/19 12/19/19 04:13 04:13 06:00 Hgb 10.0 L Hct 34.2 L MCH 25 L MCHC 29 L RDW 19.0 H Lymph % (Auto) Stephenson % (Auto) 10.1 H Eos % (Auto) Lymph # Stephenson # 1.1 H Seg Neutrophils % 71.8 H Monocytes % (Manual) Monocytes # (Manual) D-Dimer ABG pH ABG pO2 186.5 H ABG HCO3 27.8 H ABG O2 Saturation 99.1 H ABG Base Excess ABG Hemoglobin 10.4 L Oxyhemoglobin Sodium 157 H Potassium Chloride 119.1 H Carbon Dioxide BUN 26 H Glucose 302 H POC Glucose Lactic Acid Calcium 7.9 L AST 85 H ALT 61 H Lactate Dehydrogenase Total Creatine Kinase C-Reactive Protein Albumin 3.0 L Urine WBC (Auto) Digoxin Salicylates Acetaminophen 12/19/19 12/19/19 12/19/19 08:30 11:55 16:50 Hgb Hct MCH MCHC RDW Lymph % (Auto) Stephenson % (Auto) Eos % (Auto) Lymph # Stephenson # Seg Neutrophils % Monocytes % (Manual) Monocytes # (Manual) D-Dimer ABG pH ABG pO2 ABG HCO3 ABG O2 Saturation ABG Base Excess ABG Hemoglobin Oxyhemoglobin Sodium Potassium Chloride Carbon Dioxide BUN Glucose POC Glucose 264 H 251 H Lactic Acid Calcium AST ALT Lactate Dehydrogenase Total Creatine Kinase C-Reactive Protein Albumin Urine WBC (Auto) 7.0 H Digoxin Salicylates Acetaminophen 12/19/19 12/19/19 12/20/19 17:41 23:42 03:35 Hgb Hct MCH MCHC RDW Lymph % (Auto) Stephenson % (Auto) Eos % (Auto) Lymph # Stephenson # Seg Neutrophils % Monocytes % (Manual) Monocytes # (Manual) D-Dimer ABG pH ABG pO2 ABG HCO3 27.7 H ABG O2 Saturation ABG Base Excess ABG Hemoglobin 11.6 L Oxyhemoglobin 94.9 L Sodium Potassium Chloride Carbon Dioxide BUN Glucose POC Glucose 180 H 205 H Lactic Acid Calcium AST ALT Lactate Dehydrogenase Total Creatine Kinase C-Reactive Protein Albumin Urine WBC (Auto) Digoxin Salicylates Acetaminophen 12/20/19 12/20/19 12/20/19 04:45 04:45 05:27 Hgb 9.4 L Hct 31.4 L MCH 25 L MCHC 30 L RDW 19.4 H Lymph % (Auto) Stephenson % (Auto) 10.2 H Eos % (Auto) 6.0 H Lymph # 0.9 L Stephenson # Seg Neutrophils % Monocytes % (Manual) Monocytes # (Manual) D-Dimer ABG pH ABG pO2 ABG HCO3 ABG O2 Saturation ABG Base Excess ABG Hemoglobin Oxyhemoglobin Sodium 153 H Potassium Chloride 114.6 H Carbon Dioxide BUN Glucose 170 H POC Glucose 188 H Lactic Acid Calcium 7.9 L AST ALT Lactate Dehydrogenase Total Creatine Kinase C-Reactive Protein Albumin Urine WBC (Auto) Digoxin Salicylates Acetaminophen 12/20/19 12/20/19 12/21/19 12:26 18:20 00:20 Hgb Hct MCH MCHC RDW Lymph % (Auto) Stephenson % (Auto) Eos % (Auto) Lymph # Stephenson # Seg Neutrophils % Monocytes % (Manual) Monocytes # (Manual) D-Dimer ABG pH ABG pO2 ABG HCO3 ABG O2 Saturation ABG Base Excess ABG Hemoglobin Oxyhemoglobin Sodium Potassium Chloride Carbon Dioxide BUN Glucose POC Glucose 200 H 263 H 218 H Lactic Acid Calcium AST ALT Lactate Dehydrogenase Total Creatine Kinase C-Reactive Protein Albumin Urine WBC (Auto) Digoxin Salicylates Acetaminophen 12/21/19 12/21/19 12/21/19 04:38 05:26 12:35 Hgb Hct MCH MCHC RDW Lymph % (Auto) Stephenson % (Auto) Eos % (Auto) Lymph # Stephenson # Seg Neutrophils % Monocytes % (Manual) Monocytes # (Manual) D-Dimer ABG pH ABG pO2 ABG HCO3 ABG O2 Saturation ABG Base Excess ABG Hemoglobin Oxyhemoglobin Sodium 149 H Potassium 3.5 L Chloride 110.5 H Carbon Dioxide BUN Glucose 158 H POC Glucose 193 H 193 H Lactic Acid Calcium AST ALT Lactate Dehydrogenase Total Creatine Kinase C-Reactive Protein Albumin Urine WBC (Auto) Digoxin Salicylates Acetaminophen 12/21/19 12/22/19 12/22/19 18:29 00:03 05:15 Hgb 10.3 L Hct 34.7 L MCH 25 L MCHC 30 L RDW 19.4 H Lymph % (Auto) 9.0 L Stephenson % (Auto) 12.3 H Eos % (Auto) 5.0 H Lymph # 0.5 L Stephenson # Seg Neutrophils % 73.2 H Monocytes % (Manual) Monocytes # (Manual) D-Dimer ABG pH ABG pO2 ABG HCO3 ABG O2 Saturation ABG Base Excess ABG Hemoglobin Oxyhemoglobin Sodium Potassium Chloride Carbon Dioxide BUN Glucose POC Glucose 186 H 143 H Lactic Acid Calcium AST ALT Lactate Dehydrogenase Total Creatine Kinase C-Reactive Protein Albumin Urine WBC (Auto) Digoxin Salicylates Acetaminophen 12/22/19 12/22/19 12/22/19 05:15 06:02 12:13 Hgb Hct MCH MCHC RDW Lymph % (Auto) Stephenson % (Auto) Eos % (Auto) Lymph # Stephenson # Seg Neutrophils % Monocytes % (Manual) Monocytes # (Manual) D-Dimer ABG pH ABG pO2 ABG HCO3 ABG O2 Saturation ABG Base Excess ABG Hemoglobin Oxyhemoglobin Sodium 152 H Potassium Chloride 113.5 H Carbon Dioxide BUN Glucose 126 H POC Glucose 144 H 159 H Lactic Acid Calcium AST ALT Lactate Dehydrogenase Total Creatine Kinase C-Reactive Protein Albumin Urine WBC (Auto) Digoxin Salicylates Acetaminophen 12/22/19 12/22/19 12/23/19 18:03 23:50 05:27 Hgb Hct MCH MCHC RDW Lymph % (Auto) Stephenson % (Auto) Eos % (Auto) Lymph # Stephenson # Seg Neutrophils % Monocytes % (Manual) Monocytes # (Manual) D-Dimer ABG pH ABG pO2 ABG HCO3 ABG O2 Saturation ABG Base Excess ABG Hemoglobin Oxyhemoglobin Sodium Potassium Chloride Carbon Dioxide BUN Glucose POC Glucose 140 H 227 H 185 H Lactic Acid Calcium AST ALT Lactate Dehydrogenase Total Creatine Kinase C-Reactive Protein Albumin Urine WBC (Auto) Digoxin Salicylates Acetaminophen 12/23/19 12/23/19 12/23/19 12:13 16:05 16:40 Hgb Hct MCH MCHC RDW Lymph % (Auto) Stephenson % (Auto) Eos % (Auto) Lymph # Stephenson # Seg Neutrophils % Monocytes % (Manual) Monocytes # (Manual) D-Dimer ABG pH 7.259 L ABG pO2 76.2 L ABG HCO3 30.6 H ABG O2 Saturation 94.6 L ABG Base Excess ABG Hemoglobin 11.5 L Oxyhemoglobin 92.2 L Sodium 163 H* D Potassium 3.4 L Chloride 120.1 H Carbon Dioxide BUN Glucose 162 H POC Glucose 132 H Lactic Acid Calcium AST ALT Lactate Dehydrogenase Total Creatine Kinase C-Reactive Protein Albumin Urine WBC (Auto) Digoxin Salicylates Acetaminophen 12/23/19 12/24/19 12/24/19 17:53 00:48 04:20 Hgb Hct MCH MCHC RDW Lymph % (Auto) Stephenson % (Auto) Eos % (Auto) Lymph # Stephenson # Seg Neutrophils % Monocytes % (Manual) Monocytes # (Manual) D-Dimer ABG pH ABG pO2 ABG HCO3 30.4 H ABG O2 Saturation ABG Base Excess 3.9 H ABG Hemoglobin 10.3 L Oxyhemoglobin 94.4 L Sodium Potassium Chloride Carbon Dioxide BUN Glucose POC Glucose 180 H 174 H Lactic Acid Calcium AST ALT Lactate Dehydrogenase Total Creatine Kinase C-Reactive Protein Albumin Urine WBC (Auto) Digoxin Salicylates Acetaminophen 12/24/19 12/24/19 12/24/19 04:53 04:53 11:50 Hgb 9.7 L Hct 33.2 L MCH 25 L MCHC 29 L RDW 20.1 H Lymph % (Auto) Stephenson % (Auto) Eos % (Auto) Lymph # Stephenson # Seg Neutrophils % Monocytes % (Manual) 15.0 H Monocytes # (Manual) 0.9 H D-Dimer ABG pH ABG pO2 ABG HCO3 ABG O2 Saturation ABG Base Excess ABG Hemoglobin Oxyhemoglobin Sodium 163 H* Potassium 3.2 L Chloride 122.6 H Carbon Dioxide BUN Glucose 168 H POC Glucose 190 H Lactic Acid Calcium AST ALT Lactate Dehydrogenase Total Creatine Kinase C-Reactive Protein Albumin Urine WBC (Auto) Digoxin Salicylates Acetaminophen 12/24/19 12/24/19 12/24/19 15:00 16:28 21:15 Hgb Hct MCH MCHC RDW Lymph % (Auto) Stephenson % (Auto) Eos % (Auto) Lymph # Stephenson # Seg Neutrophils % Monocytes % (Manual) Monocytes # (Manual) D-Dimer ABG pH ABG pO2 ABG HCO3 ABG O2 Saturation ABG Base Excess ABG Hemoglobin Oxyhemoglobin Sodium 165 H* D 163 H* Potassium Chloride Carbon Dioxide BUN Glucose POC Glucose 160 H Lactic Acid Calcium AST ALT Lactate Dehydrogenase Total Creatine Kinase C-Reactive Protein Albumin Urine WBC (Auto) Digoxin Salicylates Acetaminophen 12/25/19 12/25/19 12/25/19 00:31 05:38 05:46 Hgb 9.7 L Hct 32.5 L MCH 25 L MCHC 30 L RDW 19.4 H Lymph % (Auto) Stephenson % (Auto) Eos % (Auto) Lymph # Stephenson # Seg Neutrophils % Monocytes % (Manual) Monocytes # (Manual) D-Dimer ABG pH ABG pO2 ABG HCO3 ABG O2 Saturation ABG Base Excess ABG Hemoglobin Oxyhemoglobin Sodium Potassium Chloride Carbon Dioxide BUN Glucose POC Glucose 182 H 194 H Lactic Acid Calcium AST ALT Lactate Dehydrogenase Total Creatine Kinase C-Reactive Protein Albumin Urine WBC (Auto) Digoxin Salicylates Acetaminophen 12/25/19 05:46 Hgb Hct MCH MCHC RDW Lymph % (Auto) Stephenson % (Auto) Eos % (Auto) Lymph # Stephenson # Seg Neutrophils % Monocytes % (Manual) Monocytes # (Manual) D-Dimer ABG pH ABG pO2 ABG HCO3 ABG O2 Saturation ABG Base Excess ABG Hemoglobin Oxyhemoglobin Sodium 166 H* Potassium 2.9 L* Chloride 124.5 H Carbon Dioxide BUN Glucose 190 H POC Glucose Lactic Acid Calcium AST ALT Lactate Dehydrogenase Total Creatine Kinase C-Reactive Protein Albumin Urine WBC (Auto) Digoxin Salicylates Acetaminophen Allied health notes reviewed: RT
--- NOTE | 2019-12-25 10:58 | Consultation ---
History of Present Illness - Reason for Consult Consult date: 12/25/19 acute renal failure, hypernatremia Requesting physician: TRINY SHANNON - History of Present Illness This is a 59 yo M with h/o Diastolic CHF, Obesity Hypoventilation Syndrome, HTN, DM, Hypothyroidism who was initially admitted for acute respiratory failure on 12/18/19. As per chart review. patient was noticed to be confused and leaning on his vehicle outside his home and a good [employer] notified EMS. Upon arrival the patient was found to be lethargic and in severe respiratory distress with a pulse oximetry of 70%. Patient placed on submental oxygen and transported to [facility] for further evaluation and care. Pt was found to have bilateral pneumonia and clinical findings suggestive of COVID-19 infection. course was complicated by septic shock requiring IV pressor support. COVID19 test was negative x 2. Course was further complicated by JAGDEEP and worsening hypernatremia fo which renal consult is requested . Past History Past Medical History: diabetes, heart failure, hypertension, other (See HPI) Past Surgical History: cholecystectomy Social history: single. denies: smoking, alcohol abuse, prescription drug abuse Family history: diabetes, hypertension Medications and Allergies Allergies Allergy/AdvReac Type Severity Reaction Status Date / Time No Known Allergies Allergy Unverified 12/19/19 01:31 Home Medications Medication Instructions Recorded Confirmed Last Taken Type Ipratropium/Albuterol Sulfate 1 ampul IH TIDRT #90 ampul.neb 06/02/19 Unknown Rx [DUONEB *Not for PRN Use*] Aspirin [Aspirin BABY CHEW TAB] 81 mg PO DAILY 06/03/19 06/03/19 3 Days Ago History ~05/31/19 Desmopressin [Ddavp] 0.2 mg PO BID 06/03/19 06/03/19 3 Days Ago History ~05/31/19 Digoxin [Lanoxin] 0.125 mg PO DAILY 06/03/19 06/03/19 3 Days Ago History ~05/31/19 Folic Acid 100 mg PO DAILY 06/03/19 06/03/19 3 Days Ago History ~05/31/19 Furosemide [Lasix TAB] 40 mg PO QDAY 06/03/19 06/03/19 3 Days Ago History ~05/31/19 Insulin Lispro [Humalog 100 4 units SQ AC 06/03/19 06/03/19 3 Days Ago History UNITS/ML Kwikpen] ~05/31/19 Levothyroxine [Synthroid] 88 mcg PO QAM 06/03/19 06/03/19 3 Days Ago History ~05/31/19 Metformin HCl [metFORMIN] 1,000 mg PO BID 06/03/19 06/03/19 3 Days Ago History ~05/31/19 Potassium Chloride [K-Dur] 20 meq PO QDAY 06/03/19 06/03/19 3 Days Ago History ~05/31/19 carvediloL [Coreg] 6.25 mg PO BID 06/03/19 06/03/19 3 Days Ago History ~05/31/19 Famotidine [Pepcid] 20 mg PO QDAY #30 tablet 06/06/19 Unknown Rx Insulin NPH/Regular [NovoLIN 70/30] 50 unit SUB-Q BIDDIAB #100 units 06/06/19 Unknown Rx Active Meds: Active Medications Albuterol/Ipratropium (Duoneb *Not For Prn Use*) 1 ampul IH TIDRT [facility] Last Admin: 12/25/19 07:55 Dose: 1 ampul Documented by: Lipase/Protease/Amylase (Erendira Cabrera 10,500 Unit) 1 each FEEDTUBE PRN PRN PRN Reason: For Clogged Feeding Tube Aspirin (Baby Aspirin) 81 mg PO DAILY [facility] Last Admin: 12/25/19 09:58 Dose: 81 mg Documented by: Famotidine (Pepcid) 20 mg PO BID [facility] Last Admin: 12/25/19 09:58 Dose: 20 mg Documented by: Folic Acid (Folvite) 1 mg PO DAILY [facility] Last Admin: 12/25/19 09:57 Dose: 1 mg Documented by: Heparin Sodium (Porcine) (Heparin) 5,000 unit SUB-Q Q12HR [facility] Last Admin: 12/25/19 09:58 Dose: 5,000 unit Documented by: Hydrophilic Ointment (Vaseline Lip Therapy) 1 applic TP Q2HR PRN PRN Reason: Dry Lips Dextrose (D5w) 1,000 mls @ 125 mls/hr IV DIRECT [facility] Last Admin: 12/25/19 10:16 Dose: 125 mls/hr Documented by: Potassium Chloride (Kcl 10meq/100ml) 10 meq in 100 mls @ 100 mls/hr IV Q1H SHANEL Stop: 12/25/19 12:59 Last Admin: 12/25/19 09:53 Dose: 100 mls/hr Documented by: Insulin Glargine (Lantus) 5 units SUB-Q QHS [facility] Last Admin: 12/24/19 21:18 Dose: 5 units Documented by: Insulin Human Lispro (Humalog) 0 unit SUB-Q Q6HR [facility]; Protocol Last Admin: 12/25/19 06:00 Dose: 3 unit Documented by: Levothyroxine Sodium (Synthroid) 88 mcg PO QAM@0600 [facility] Last Admin: 12/25/19 05:15 Dose: 88 mcg Documented by: Multi-Ingred Cream/Lotion/Oil/Oint (Artificial Tears Ophth Oint) 1 applic OU Q4HR PRN PRN Reason: Dry Eye(s) Potassium Chloride (Potassium Chloride) 20 meq FEEDTUBE QDAY [facility] Last Admin: 12/25/19 10:06 Dose: 20 meq Documented by: Simple Syrup (Simple Syrup) 15 ml FEEDTUBE PRN PRN PRN Reason: Hypoglycemia Simple Syrup (Simple Syrup) 30 ml FEEDTUBE PRN PRN PRN Reason: Hypoglycemia Sodium Bicarbonate (Sodium Bicarbonate) 325 mg FEEDTUBE PRN PRN PRN Reason: For Clogged Feeding Tube Sodium Chloride (Sodium Chloride Flush Syringe 10 Ml) 10 ml IV BID [facility] Last Admin: 12/25/19 10:19 Dose: 10 ml Documented by: Sodium Chloride (Sodium Chloride Flush Syringe 10 Ml) 10 ml IV PRN PRN PRN Reason: LINE FLUSH Review of Systems ROS unobtainable: due to endotracheal tube, due to mental status Exam - Vital Signs Vital signs: Vital Signs Pulse Pulse Ox 100 H 94 12/18/19 13:27 12/18/19 13:27 - General Appearance General appearance: well-developed, well-nourished, appears stated age, moderate distress EENT: ATNC, PERRL, mucous membranes moist Neck: Present: neck supple Respiratory: Decreased Breath Sounds Heart: regular, S1S2 Gastrointestinal: Present: normoactive bowel sounds, obese Integumentary: no rash, other (no edema ) Neurologic: no focal deficit, strength 5/5, CN 3-12 intact, other Results - Lab Results 12/25/19 05:46 12/25/19 05:46 Most recent lab results ABG pH 7.350 pH Units (7.350-7.450) 12/24/19 04:20 ABG pCO2 56.4 mm Hg 12/24/19 04:20 ABG pO2 87.7 mm Hg (80.0-90.0) 12/24/19 04:20 ABG HCO3 30.4 mmol/L (20.0-26.0) H 12/24/19 04:20 ABG O2 Saturation 96.7 % (95.0-99.0) 12/24/19 04:20 Calcium 9.0 mg/dL (8.4-10.2) 12/25/19 05:46 Phosphorus 4.40 mg/dL (2.5-4.5) 12/18/19 15:24 Magnesium 2.00 mg/dL (1.7-2.3) 12/18/19 14:45 Assessment and Plan - Patient Problems (1) Hypernatremia Current Visit: Yes Status: Acute Plan to address problem: Persistent hypernatremia d/t free water loss > 8L. no significant polyuria noted on current documented I/Os, recommend egan for more adquate I/O documentation and to assess true polyuria. increased D5W to 125ml/hr, check urine lytes, urine Osm. (2) Hypokalemia Current Visit: Yes Status: Acute Plan to address problem: cont aggressive K supplementation with IV KCl to target K at 4 (3) Acute kidney injury Current Visit: Yes Status: Acute Plan to address problem: JAGDEEP secondary pre-renal azotemia in the setting of significant free water deficit. cont IVF with D5W at 125ml/hr. check UA, urine lytes, urine p/c ratio. cont supportive care for JGADEEP, avoid nephrotoxins, NSAIDs, IV contrast (4) Pneumonia Current Visit: No Status: Acute Qualifiers: Pneumonia type: due to unspecified organism Laterality: left Lung lo cation: unspecified part of lung Qualified Code(s): J18.9 - Pneumonia, unspecified organism Plan to address problem: management as per pulm/CCM (5) Diastolic CHF Current Visit: Yes Status: Acute Qualifiers: Heart failure chronicity: acute on chronic Qualified Code(s): I50.33 - Acute on chronic diastolic (congestive) heart failure Plan to address problem: will monitor volume status closely while pt is on IV D5W. on BIPAP (6) Obesity hypoventilation syndrome Current Visit: Yes Status: Acute Plan to address problem: bipap as per ICU team
[2019-12-25] MEDS ORDERED: POTASSIUM CHLORIDE 20 MEQ PACKET FEEDTUBE ONE (11:04)
[2019-12-25 11:38] LABS: ABG Base Excess 5.3 mmol/L (-2.0-3.0); ABG HCO3 32.6 mmol/L (20.0-26.0); ABG Methemoglobin 0.6 % (0.0-1.5); ABG Oxygen Saturation 92.5 % (95.0-99.0); ABG PCO2 63.3 mm Hg; ABG PH 7.33 pH Units (7.350-7.450); ABG PO2 65.7 mm Hg (80.0-90.0)
--- NOTE | 2019-12-25 12:16 | XRay Report ---
CHEST 1 VIEW 1140 INDICATION / CLINICAL INFORMATION: Respiratory failure on BIPAP. COMPARISON: 12/22/2019 FINDINGS: SUPPORT DEVICES: A feeding tube now extends well below the diaphragm HEART / MEDIASTINUM: Stable LUNGS / PLEURA: Congestive changes and pulmonary edema continue. Patchy bilateral infiltrates continu e but improvement is noted in the lung bases. The left pleural effusion is less prominent. No pneumot horax. ADDITIONAL FINDINGS: No significant additional findings. IMPRESSION: Improvement Signer Name: Jung Colin MD Signed: 12/25/2019 12:12 PM Workstation Name: [id number]
[2019-12-25] MEDS: POTASSIUM CHLORIDE 40 MEQ in DEXTROSE 10% IN WATER 1,000 ML IV SCH (14:06)
[2019-12-25 17:35] LABS: ABG Base Excess 5.3 mmol/L (-2.0-3.0); ABG HCO3 33.2 mmol/L (20.0-26.0); ABG Methemoglobin 0.7 % (0.0-1.5); ABG Oxygen Saturation 97.1 % (95.0-99.0); ABG PCO2 69.6 mm Hg; ABG PH 7.296 pH Units (7.350-7.450); ABG PO2 101.5 mm Hg (80.0-90.0)
[2019-12-25 17:37] LABS: Osmolality,Urine 140 Mosm/kg
[2019-12-25 17:45] LABS: Creatinine,Urine < 4.2 mg/dL (0.1-20.0)
[2019-12-25 19:28] LABS: BUN/Creatinine Ratio 8; Blood Urea Nitrogen 11 mg/dL (9-20); Calcium 8.7 mg/dL (8.4-10.2); Hemolysis Index 46
[2019-12-25] MEDS: INSULIN GLARGINE 100 UNITS/ML SUB-Q SCH (23:25)
[2019-12-26] MEDS: INSULIN LISPRO 100 UNIT/ML SUB-Q SCH ×4 (05:41→23:30)
[2019-12-26] MEDS: LEVOTHYROXINE 88 MCG TAB PO SCH (05:48)
[2019-12-26] MEDS: IPRATROPIUM/ALBUTEROL SULFATE 3 ML AMPUL.NEB IH SCH ×3 (07:55→22:39)
[2019-12-26 08:22] LABS: Mean Corpuscular HGB Conc 30 % (32-34); Mean Corpuscular Volume 86 fl (84-94); Platelet Count 150 K/mm3 (140-440); Red Blood Count 3.74 M/mm3 (3.65-5.03)
[2019-12-26 08:23] LABS: Hematocrit 32.1 % (35.5-45.6); Hemoglobin 9.6 gm/dl (11.8-15.2); Red Cell Distribution Width 20.5 % (13.2-15.2)
[2019-12-26 08:43] LABS: BUN/Creatinine Ratio 8; Blood Urea Nitrogen 11 mg/dL (9-20); Calcium 8.8 mg/dL (8.4-10.2); Hemolysis Index 40
--- NOTE | 2019-12-26 09:02 | Progress Note ---
Assessment and Plan - Patient Problems (1) Hypernatremia Current Visit: Yes Status: Acute Plan to address problem: Na improving on D5W 125ml/hr, along with free water flushes 250cc q 4hr. strict I/Os, UOP of 2.4L/24h noted, no signs of polyuria. (2) Hypokalemia Current Visit: Yes Status: Acute Plan to address problem: cont aggressive K supplementation with IV KCl to target K at 4 (3) Acute kidney injury Current Visit: Yes Status: Acute Plan to address problem: JAGDEEP secondary pre-renal azotemia in the setting of significant free water deficit. cont IVF with D5W at 125ml/hr. check UA, urine lytes, urine osm. cont supportive care for JAGDEEP, avoid nephrotoxins, NSAIDs, IV contrast (4) Pneumonia Current Visit: No Status: Acute Qualifiers: Pneumonia type: due to unspecified organism Laterality: left Lung location: unspecified part of lung Qualified Code(s): J18.9 - Pneumonia, unspecified organism Plan to address problem: management as per pulm/CCM (5) Diastolic CHF Current Visit: Yes Status: Acute Qualifiers: Heart failure chronicity: acute on chronic Qualified Code(s): I50.33 - Acute on chronic diastolic (congestive) heart failure Plan to address problem: will monitor volume status closely while pt is on IV D5W. on BIPAP (6) Obesity hypoventilation syndrome Current Visit: Yes Status: Acute Plan to address problem: bipap as per ICU team Subjective Date of service: 12/26/19 Principal diagnosis: Ac. Hypoxemic Resp Failure; Septic Shock; Magdiel. PNA; PUI COVID-19; CHF; JOE Interval history: pt remains on BIPAP, mild resp disterss, denies fever, chills, n/v/d, CP, dysuria Objective - Vital Signs Vital signs: Vital Signs - 12hr 12/25/19 12/25/19 12/25/19 22:00 23:00 23:01 Temperature Pulse Rate 66 68 67 Pulse Rate [ Bilateral] Pulse Rate [ From Monitor] Respiratory 25 H 25 H 24 Rate Respiratory Rate [Bilateral ] Blood Pressure 107/66 108/67 108/67 O2 Sat by Pulse 100 100 100 Oximetry 12/26/19 12/26/19 12/26/19 00:00 00:04 01:00 Temperature 97.9 F Pulse Rate 66 66 65 Pulse Rate [ Bilateral] Pulse Rate [ From Monitor] Respiratory 25 H 25 H 25 H Rate Respiratory Rate [Bilateral ] Blood Pressure 99/61 99/69 O2 Sat by Pulse 100 100 97 Oximetry 12/26/19 12/26/19 12/26/19 02:00 03:00 03:55 Temperature Pulse Rate 64 63 61 Pulse Rate [ Bilateral] Pulse Rate [ From Monitor] Respiratory 25 H 22 25 H Rate Respiratory Rate [Bilateral ] Blood Pressure 111/66 112/71 112/71 O2 Sat by Pulse 100 100 100 Oximetry 12/26/19 12/26/19 12/26/19 04:00 05:00 06:00 Temperature 96.8 F L Pulse Rate 64 63 55 L Pulse Rate [ Bilateral] Pulse Rate [ From Monitor] Respiratory 25 H 25 H 25 H Rate Respiratory Rate [Bilateral ] Blood Pressure 112/71 107/72 104/69 O2 Sat by Pulse 100 98 99 Oximetry 12/26/19 12/26/19 12/26/19 07:00 07:50 08:00 Temperature Pulse Rate 59 L 57 L 57 L Pulse Rate [ Bilateral] Pulse Rate [ 58 L From Monitor] Respiratory 25 H 26 H 26 H Rate Respiratory Rate [Bilateral ] Blood Pressure 104/69 104/64 104/64 O2 Sat by Pulse 97 97 97 Oximetry 12/26/19 08:09 Temperature Pulse Rate Pulse Rate [ 59 L Bilateral] Pulse Rate [ From Monitor] Respiratory Rate Respiratory 26 H Rate [Bilateral ] Blood Pressure O2 Sat by Pulse Oximetry - General Appearance General appearance: well-developed, appears stated age, chronically ill EENT: ATNC, PERRL, mucous membranes moist Neck: no JVD Respiratory: Present: Ronchi Cardiology: regular, S1S2 Gastrointestinal: normoactive bowel sounds Integumentary: no rash, other (no edema ) Neurologic: no focal deficit, alert and oriented x3, strength 5/5, CN 3-12 intact Psychiatric: mood/affect appropriate, cooperative - Lab 12/26/19 08:07 12/26/19 08:07 Most recent lab results ABG pH 7.296 pH Units (7.350-7.450) L 12/25/19 17:20 ABG pCO2 69.6 mm Hg 12/25/19 17:20 ABG pO2 101.5 mm Hg (80.0-90.0) H 12/25/19 17:20 ABG HCO3 33.2 mmol/L (20.0-26.0) H 12/25/19 17:20 ABG O2 Saturation 97.1 % (95.0-99.0) 12/25/19 17:20 Calcium 8.8 mg/dL (8.4-10.2) 12/26/19 08:07 Phosphorus 4.40 mg/dL (2.5-4.5) 12/18/19 15:24 Magnesium 2.00 mg/dL (1.7-2.3) 12/18/19 14:45 Urine Creatinine < 4.2 mg/dL (0.1-20.0) 12/25/19 16:45 Urine Sodium 10 mmol/L 12/25/19 16:45 Urine Total Protein < 4 mg/dL (5-11.8) L 12/25/19 16:45 Medications & Allergies - Medications Allergies/Adverse Reactions: Allergies No Known Allergies Allergy (Unverified 12/19/19 01:31) Home Medications: Home Medications Medication Instructions Recorded Confirmed Last Taken Type Ipratropium/Albuterol Sulfate 1 ampul IH TIDRT #90 ampul.neb 06/02/19 Unknown Rx [DUONEB *Not for PRN Use*] Aspirin [Aspirin BABY CHEW TAB] 81 mg PO DAILY 06/03/19 06/03/19 3 Days Ago History ~05/31/19 Desmopressin [Ddavp] 0.2 mg PO BID 06/03/19 06/03/19 3 Days Ago History ~05/31/19 Digoxin [Lanoxin] 0.125 mg PO DAILY 06/03/19 06/03/19 3 Days Ago History ~05/31/19 Folic Acid 100 mg PO DAILY 06/03/19 06/03/19 3 Days Ago History ~05/31/19 Furosemide [Lasix TAB] 40 mg PO QDAY 06/03/19 06/03/19 3 Days Ago History ~05/31/19 Insulin Lispro [Humalog 100 4 units SQ AC 06/03/19 06/03/19 3 Days Ago History UNITS/ML Kwikpen] ~05/31/19 Levothyroxine [Synthroid] 88 mcg PO QAM 06/03/19 06/03/19 3 Days Ago History ~05/31/19 Metformin HCl [metFORMIN] 1,000 mg PO BID 06/03/19 06/03/19 3 Days Ago History ~05/31/19 Potassium Chloride [K-Dur] 20 meq PO QDAY 06/03/19 06/03/19 3 Days Ago History ~05/31/19 carvediloL [Coreg] 6.25 mg PO BID 06/03/19 06/03/19 3 Days Ago History ~05/31/19 Famotidine [Pepcid] 20 mg PO QDAY #30 tablet 06/06/19 Unknown Rx Insulin NPH/Regular [NovoLIN 70/30] 50 unit SUB-Q BIDDIAB #100 units 06/06/19 Unknown Rx Active Medications: Generic Name Dose Route Start Last Admin Trade Name Freq PRN Reason Stop Dose Admin Albuterol/Ipratropium 1 ampul 12/18/19 14:00 12/26/19 07:55 Duoneb *Not For Prn Use* IH 1 ampul TIDRT SHANEL Administration Lipase/Protease/Amylase 1 each 12/19/19 08:29 Pancreaze 10,500 Unit FEEDTUBE PRN PRN For Clogged Feeding Tube Aspirin 81 mg 12/19/19 10:00 12/25/19 09:58 Baby Aspirin PO 81 mg DAILY SHANEL Administration Famotidine 20 mg 12/20/19 10:00 12/25/19 23:26 Pepcid PO 20 mg BID SHANEL Administration Folic Acid 1 mg 12/19/19 10:00 12/25/19 09:57 Folvite PO 1 mg DAILY SHANEL Administration Heparin Sodium (Porcine) 5,000 unit 12/18/19 22:00 12/25/19 23:26 Heparin SUB-Q 5,000 unit Q12HR SHANEL Administration Hydrophilic Ointment 1 applic 12/18/19 12:35 Vaseline Lip Therapy TP Q2HR PRN Dry Lips Potassium Chloride 40 meq/ 1,020 mls @ 42 mls/hr 12/25/19 11:15 12/25/19 14:06 Dextrose IV 42 mls/hr DIRECT SHANEL Administration Insulin Glargine 5 units 12/21/19 22:00 12/25/19 23:25 Lantus SUB-Q 5 units QHS SHANEL Administration Insulin Human Lispro 0 unit 12/20/19 00:00 12/26/19 05:41 Humalog SUB-Q Not Given Q6HR SHANEL Protocol Levothyroxine Sodium 88 mcg 12/19/19 06:00 12/26/19 05:48 Synthroid PO 88 mcg QAM@0600 SHANEL Administration Multi-Ingred Cream/Lotion/Oil/Oint 1 applic 12/18/19 12:35 Artificial Tears Ophth Oint OU Q4HR PRN Dry Eye(s) Potassium Chloride 20 meq 12/19/19 10:00 12/25/19 10:06 Potassium Chloride FEEDTUBE 20 meq QDAY SHANEL Administration Simple Syrup 15 ml 12/19/19 08:29 Simple Syrup FEEDTUBE PRN PRN Hypoglycemia Simple Syrup 30 ml 12/19/19 08:29 Simple Syrup FEEDTUBE PRN PRN Hypoglycemia Sodium Bicarbonate 325 mg 12/19/19 08:29 Sodium Bicarbonate FEEDTUBE PRN PRN For Clogged Feeding Tube Sodium Chloride 10 ml 12/18/19 22:00 12/25/19 22:00 Sodium Chloride Flush Syringe 10 Ml IV 10 ml BID SHANEL Administration Sodium Chloride 10 ml 12/18/19 13:31 Sodium Chloride Flush Syringe 10 Ml IV PRN PRN LINE FLUSH
[2019-12-26] MEDS: FAMOTIDINE 20 MG TAB PO SCH ×2 (09:16→22:56)
[2019-12-26] MEDS: ASPIRIN 81 MG TAB CHEW PO SCH (09:16)
[2019-12-26] MEDS: HEPARIN 5,000 UNIT/1 ML VIAL SUB-Q SCH ×2 (09:16→22:30)
[2019-12-26] MEDS: FOLIC ACID 1 MG TAB PO SCH (09:16)
[2019-12-26] MEDS: POTASSIUM CHLORIDE 20 MEQ PACKET FEEDTUBE SCH (09:16)
--- NOTE | 2019-12-26 12:36 | Progress Note ---
Assessment and Plan Acute Hypoxemic Respiratory Failure s/p extubation- on BIPAP Severe Sepsis with Shock Bilateral Pneumonia Atelectasis COVID-19 NEGATIVE Morbid Obesity H/O CHF JOE Hypernatremia Continue BIPAP qhs and prn Place on nasal cannula to keep O2 sats 88-90% ABG, CXR prn Hypotonic solution for hypernatremia, free water Aspiration precautions with modified diet PT/OT, increase activity Fall precautions Discussed with RT and RN Discussed with hospitalist re transfer to a [facility] facility- I think he can be transferred at this time - continue bronchodilators with pulmonary hygiene per RT - continue accuchecks with glycemic control per SSI (Target blood glucose of 140-180 mg/dL; avoid hypoglycemia) - continue to avoid benzodiazepines, reduce the possibility of delirium - Maintenance of sleep-wake cycle, avoid delirium - G.I. & VTE prophylaxis - continue mobility protocols for pressure ulcer prevention - Monitor hemodynamics closely-episodes of asymptomatic bradycardia - continue other care per attending / other consultants Subjective Date of service: 12/26/19 Principal diagnosis: Ac. Hypoxemic Resp Failure; Septic Shock; Magdiel. PNA; PUI COVID-19; CHF; JOE Interval history: Patient is seen today for: Acute Hypoxemic Respiratory Failure; Severe Sepsis with Shock; Bilateral Pneumonia; Morbid Obesity; H/O CHF; JOE Seen and examined at bedside; 24hour events reviewed; nursing and respiratory care staff consulted; no adverse overnight events reported to me; resting peacefully in bed; On BIPAP, improving, awake and alert- asking for his television volume to be increased. He denies any chest pain,no shorntess of breath, he is hungry Objective Vital Signs - 12hr 12/26/19 12/26/19 12/26/19 01:00 02:00 03:00 Temperature Pulse Rate 65 64 63 Pulse Rate [ Bilateral] Pulse Rate [ From Monitor] Respiratory 25 H 25 H 22 Rate Respiratory Rate [Bilateral ] Blood Pressure 99/69 111/66 112/71 O2 Sat by Pulse 97 100 100 Oximetry 12/26/19 12/26/19 12/26/19 03:55 04:00 05:00 Temperature 96.8 F L Pulse Rate 61 64 63 Pulse Rate [ Bilateral] Pulse Rate [ From Monitor] Respiratory 25 H 25 H 25 H Rate Respiratory Rate [Bilateral ] Blood Pressure 112/71 112/71 107/72 O2 Sat by Pulse 100 100 98 Oximetry 12/26/19 12/26/19 12/26/19 06:00 07:00 07:50 Temperature Pulse Rate 55 L 59 L 57 L Pulse Rate [ Bilateral] Pulse Rate [ From Monitor] Respiratory 25 H 25 H 26 H Rate Respiratory Rate [Bilateral ] Blood Pressure 104/69 104/69 104/64 O2 Sat by Pulse 99 97 97 Oximetry 12/26/19 12/26/19 12/26/19 08:00 08:09 09:00 Temperature Pulse Rate 57 L 60 Pulse Rate [ 59 L Bilateral] Pulse Rate [ 58 L From Monitor] Respiratory 26 H 24 Rate Respiratory 26 H Rate [Bilateral ] Blood Pressure 104/64 107/66 O2 Sat by Pulse 97 97 Oximetry 12/26/19 12/26/19 12/26/19 10:00 11:00 12:00 Temperature Pulse Rate 55 L 71 73 Pulse Rate [ Bilateral] Pulse Rate [ 63 From Monitor] Respiratory 25 H 29 H 38 H Rate Respiratory Rate [Bilateral ] Blood Pressure 107/66 118/79 119/79 O2 Sat by Pulse 96 97 96 Oximetry Constitutional: no acute distress, other (BIPAP) Eyes: non-icteric ENT: oropharynx moist, other Neck: supple, no lymphadenopathy, no JVD Effort: mildly labored Ascultation: Bilateral: diminished breath sounds, rhonchi Percussion: Bilateral: not dull Cardiovascular: regular rate and rhythm, other (S1,S2) Gastrointestinal: hypoactive bowel sounds, soft, non-tender, other (distended) Integumentary: rash (stasis dermatyitis) Extremities: no cyanosis, pink and warm, pulses normal, no ischemia or petechiae, edema (trace) Neurologic: normal mental status, non-focal exam, pupils equal and round, CN II- XII normal, motor strength normal and (obeys simple commands) Psychiatric: mood appropriate, affect normal CBC and BMP: 12/26/19 08:07 12/26/19 08:07 ABG, PT/INR, D-dimer: ABG ABG pH 7.296 pH Units (7.350-7.450) L 12/25/19 17:20 ABG pCO2 69.6 mm Hg 12/25/19 17:20 ABG pO2 101.5 mm Hg (80.0-90.0) H 06/20/20 17:20 ABG O2 Saturation 97.1 % (95.0-99.0) 12/25/19 17:20 PT/INR, D-dimer PT 14.0 Sec. (12.2-14.9) 12/18/19 14:45 INR 1.10 (0.87-1.13) 12/18/19 14:45 D-Dimer 534.45 ng/mlDDU (0-234) H 12/18/19 14:45 Abnormal lab findings: Abnormal Labs 12/18/19 12/18/19 12/18/19 12:23 14:45 14:45 WBC Hgb 10.4 L Hct 35.2 L MCH 25 L MCHC 30 L RDW 18.8 H Lymph % (Auto) [place] % (Auto) 11.6 H Eos % (Auto) 4.8 H Lymph # [place] # 1.0 H Seg Neutrophils % Monocytes % (Manual) Monocytes # (Manual) D-Dimer ABG pH ABG pO2 ABG HCO3 ABG O2 Saturation ABG Base Excess ABG Hemoglobin Oxyhemoglobin Sodium Potassium Chloride Carbon Dioxide BUN Glucose POC Glucose 328 H Lactic Acid Calcium AST ALT Lactate Dehydrogenase Total Creatine Kinase 40 L C-Reactive Protein Albumin Urine WBC (Auto) Urine Total Protein Digoxin Salicylates Acetaminophen 12/18/19 12/18/19 12/18/19 14:45 14:45 14:45 WBC Hgb Hct MCH MCHC RDW Lymph % (Auto) [place] % (Auto) Eos % (Auto) Lymph # [place] # Seg Neutrophils % Monocytes % (Manual) Monocytes # (Manual) D-Dimer 534.45 H ABG pH ABG pO2 ABG HCO3 ABG O2 Saturation ABG Base Excess ABG Hemoglobin Oxyhemoglobin Sodium 156 H Potassium Chloride 112.3 H Carbon Dioxide 31 H BUN 32 H Glucose 328 H POC Glucose Lactic Acid Calcium AST ALT Lactate Dehydrogenase 235 H Total Creatine Kinase C-Reactive Protein 8.50 H Albumin 3.6 L Urine WBC (Auto) Urine Total Protein Digoxin 0.3 L Salicylates < 0.3 L Acetaminophen 12/18/19 12/18/19 12/18/19 14:45 14:45 16:00 WBC Hgb Hct MCH MCHC RDW Lymph % (Auto) [place] % (Auto) Eos % (Auto) Lymph # [place] # Seg Neutrophils % Monocytes % (Manual) Monocytes # (Manual) D-Dimer ABG pH ABG pO2 69.8 L ABG HCO3 31.8 H ABG O2 Saturation ABG Base Excess 5.4 H ABG Hemoglobin 10.0 L Oxyhemoglobin 92.9 L Sodium Potassium Chloride Carbon Dioxide BUN Glucose 314 H POC Glucose Lactic Acid Calcium AST ALT Lactate Dehydrogenase 236 H Total Creatine Kinase C-Reactive Protein 8.40 H Albumin Urine WBC (Auto) Urine Total Protein Digoxin Salicylates Acetaminophen < 5.0 L 12/18/19 12/18/19 12/18/19 16:35 18:30 22:56 WBC Hgb Hct MCH MCHC RDW Lymph % (Auto) [place] % (Auto) Eos % (Auto) Lymph # [place] # Seg Neutrophils % Monocytes % (Manual) Monocytes # (Manual) D-Dimer ABG pH ABG pO2 ABG HCO3 ABG O2 Saturation ABG Base Excess ABG Hemoglobin Oxyhemoglobin Sodium Potassium Chloride Carbon Dioxide BUN Glucose POC Glucose 310 H 353 H Lactic Acid 2.50 H* Calcium AST ALT Lactate Dehydrogenase Total Creatine Kinase C-Reactive Protein Albumin Urine WBC (Auto) Urine Total Protein Digoxin Salicylates Acetaminophen 12/19/19 12/19/19 12/19/19 04:13 04:13 06:00 WBC Hgb 10.0 L Hct 34.2 L MCH 25 L MCHC 29 L RDW 19.0 H Lymph % (Auto) [place] % (Auto) 10.1 H Eos % (Auto) Lymph # [place] # 1.1 H Seg Neutrophils % 71.8 H Monocytes % (Manual) Monocytes # (Manual) D-Dimer ABG pH ABG pO2 186.5 H ABG HCO3 27.8 H ABG O2 Saturation 99.1 H ABG Base Excess ABG Hemoglobin 10.4 L Oxyhemoglobin Sodium 157 H Potassium Chloride 119.1 H Carbon Dioxide BUN 26 H Glucose 302 H POC Glucose Lactic Acid Calcium 7.9 L AST 85 H ALT 61 H Lactate Dehydrogenase Total Creatine Kinase C-Reactive Protein Albumin 3.0 L Urine WBC (Auto) Urine Total Protein Digoxin Salicylates Acetaminophen 12/19/19 12/19/19 12/19/19 08:30 11:55 16:50 WBC Hgb Hct MCH MCHC RDW Lymph % (Auto) [place] % (Auto) Eos % (Auto) Lymph # [place] # Seg Neutrophils % Monocytes % (Manual) Monocytes # (Manual) D-Dimer ABG pH ABG pO2 ABG HCO3 ABG O2 Saturation ABG Base Excess ABG Hemoglobin Oxyhemoglobin Sodium Potassium Chloride Carbon Dioxide BUN Glucose POC Glucose 264 H 251 H Lactic Acid Calcium AST ALT Lactate Dehydrogenase Total Creatine Kinase C-Reactive Protein Albumin Urine WBC (Auto) 7.0 H Urine Total Protein Digoxin Salicylates Acetaminophen 12/19/19 12/19/19 12/20/19 17:41 23:42 03:35 WBC Hgb Hct MCH MCHC RDW Lymph % (Auto) [place] % (Auto) Eos % (Auto) Lymph # [place] # Seg Neutrophils % Monocytes % (Manual) Monocytes # (Manual) D-Dimer ABG pH ABG pO2 ABG HCO3 27.7 H ABG O2 Saturation ABG Base Excess ABG Hemoglobin 11.6 L Oxyhemoglobin 94.9 L Sodium Potassium Chloride Carbon Dioxide BUN Glucose POC Glucose 180 H 205 H Lactic Acid Calcium AST ALT Lactate Dehydrogenase Total Creatine Kinase C-Reactive Protein Albumin Urine WBC (Auto) Urine Total Protein Digoxin Salicylates Acetaminophen 12/20/19 12/20/19 12/20/19 04:45 04:45 05:27 WBC Hgb 9.4 L Hct 31.4 L MCH 25 L MCHC 30 L RDW 19.4 H Lymph % (Auto) [place] % (Auto) 10.2 H Eos % (Auto) 6.0 H Lymph # 0.9 L [place] # Seg Neutrophils % Monocytes % (Manual) Monocytes # (Manual) D-Dimer ABG pH ABG pO2 ABG HCO3 ABG O2 Saturation ABG Base Excess ABG Hemoglobin Oxyhemoglobin Sodium 153 H Potassium Chloride 114.6 H Carbon Dioxide BUN Glucose 170 H POC Glucose 188 H Lactic Acid Calcium 7.9 L AST ALT Lactate Dehydrogenase Total Creatine Kinase C-Reactive Protein Albumin Urine WBC (Auto) Urine Total Protein Digoxin Salicylates Acetaminophen 12/20/19 12/20/19 12/21/19 12:26 18:20 00:20 WBC Hgb Hct MCH MCHC RDW Lymph % (Auto) [place] % (Auto) Eos % (Auto) Lymph # [place] # Seg Neutrophils % Monocytes % (Manual) Monocytes # (Manual) D-Dimer ABG pH ABG pO2 ABG HCO3 ABG O2 Saturation ABG Base Excess ABG Hemoglobin Oxyhemoglobin Sodium Potassium Chloride Carbon Dioxide BUN Glucose POC Glucose 200 H 263 H 218 H Lactic Acid Calcium AST ALT Lactate Dehydrogenase Total Creatine Kinase C-Reactive Protein Albumin Urine WBC (Auto) Urine Total Protein Digoxin Salicylates Acetaminophen 12/21/19 12/21/19 12/21/19 04:38 05:26 12:35 WBC Hgb Hct MCH MCHC RDW Lymph % (Auto) [place] % (Auto) Eos % (Auto) Lymph # [place] # Seg Neutrophils % Monocytes % (Manual) Monocytes # (Manual) D-Dimer ABG pH ABG pO2 ABG HCO3 ABG O2 Saturation ABG Base Excess ABG Hemoglobin Oxyhemoglobin Sodium 149 H Potassium 3.5 L Chloride 110.5 H Carbon Dioxide BUN Glucose 158 H POC Glucose 193 H 193 H Lactic Acid Calcium AST ALT Lactate Dehydrogenase Total Creatine Kinase C-Reactive Protein Albumin Urine WBC (Auto) Urine Total Protein Digoxin Salicylates Acetaminophen 12/21/19 12/22/19 12/22/19 18:29 00:03 05:15 WBC Hgb 10.3 L Hct 34.7 L MCH 25 L MCHC 30 L RDW 19.4 H Lymph % (Auto) 9.0 L [place] % (Auto) 12.3 H Eos % (Auto) 5.0 H Lymph # 0.5 L [place] # Seg Neutrophils % 73.2 H Monocytes % (Manual) Monocytes # (Manual) D-Dimer ABG pH ABG pO2 ABG HCO3 ABG O2 Saturation ABG Base Excess ABG Hemoglobin Oxyhemoglobin Sodium Potassium Chloride Carbon Dioxide BUN Glucose POC Glucose 186 H 143 H Lactic Acid Calcium AST ALT Lactate Dehydrogenase Total Creatine Kinase C-Reactive Protein Albumin Urine WBC (Auto) Urine Total Protein Digoxin Salicylates Acetaminophen 12/22/19 12/22/19 12/22/19 05:15 06:02 12:13 WBC Hgb Hct MCH MCHC RDW Lymph % (Auto) [place] % (Auto) Eos % (Auto) Lymph # [place] # Seg Neutrophils % Monocytes % (Manual) Monocytes # (Manual) D-Dimer ABG pH ABG pO2 ABG HCO3 ABG O2 Saturation ABG Base Excess ABG Hemoglobin Oxyhemoglobin Sodium 152 H Potassium Chloride 113.5 H Carbon Dioxide BUN Glucose 126 H POC Glucose 144 H 159 H Lactic Acid Calcium AST ALT Lactate Dehydrogenase Total Creatine Kinase C-Reactive Protein Albumin Urine WBC (Auto) Urine Total Protein Digoxin Salicylates Acetaminophen 12/22/19 12/22/19 12/23/19 18:03 23:50 05:27 WBC Hgb Hct MCH MCHC RDW Lymph % (Auto) [place] % (Auto) Eos % (Auto) Lymph # [place] # Seg Neutrophils % Monocytes % (Manual) Monocytes # (Manual) D-Dimer ABG pH ABG pO2 ABG HCO3 ABG O2 Saturation ABG Base Excess ABG Hemoglobin Oxyhemoglobin Sodium Potassium Chloride Carbon Dioxide BUN Glucose POC Glucose 140 H 227 H 185 H Lactic Acid Calcium AST ALT Lactate Dehydrogenase Total Creatine Kinase C-Reactive Protein Albumin Urine WBC (Auto) Urine Total Protein Digoxin Salicylates Acetaminophen 12/23/19 12/23/19 12/23/19 12:13 16:05 16:40 WBC Hgb Hct MCH MCHC RDW Lymph % (Auto) [place] % (Auto) Eos % (Auto) Lymph # [place] # Seg Neutrophils % Monocytes % (Manual) Monocytes # (Manual) D-Dimer ABG pH 7.259 L ABG pO2 76.2 L ABG HCO3 30.6 H ABG O2 Saturation 94.6 L ABG Base Excess ABG Hemoglobin 11.5 L Oxyhemoglobin 92.2 L Sodium 163 H* D Potassium 3.4 L Chloride 120.1 H Carbon Dioxide BUN Glucose 162 H POC Glucose 132 H Lactic Acid Calcium AST ALT Lactate Dehydrogenase Total Creatine Kinase C-Reactive Protein Albumin Urine WBC (Auto) Urine Total Protein Digoxin Salicylates Acetaminophen 12/23/19 12/24/19 12/24/19 17:53 00:48 04:20 WBC Hgb Hct MCH MCHC RDW Lymph % (Auto) [place] % (Auto) Eos % (Auto) Lymph # [place] # Seg Neutrophils % Monocytes % (Manual) Monocytes # (Manual) D-Dimer ABG pH ABG pO2 ABG HCO3 30.4 H ABG O2 Saturation ABG Base Excess 3.9 H ABG Hemoglobin 10.3 L Oxyhemoglobin 94.4 L Sodium Potassium Chloride Carbon Dioxide BUN Glucose POC Glucose 180 H 174 H Lactic Acid Calcium AST ALT Lactate Dehydrogenase Total Creatine Kinase C-Reactive Protein Albumin Urine WBC (Auto) Urine Total Protein Digoxin Salicylates Acetaminophen 12/24/19 12/24/19 12/24/19 04:53 04:53 11:50 WBC Hgb 9.7 L Hct 33.2 L MCH 25 L MCHC 29 L RDW 20.1 H Lymph % (Auto) [place] % (Auto) Eos % (Auto) Lymph # [place] # Seg Neutrophils % Monocytes % (Manual) 15.0 H Monocytes # (Manual) 0.9 H D-Dimer ABG pH ABG pO2 ABG HCO3 ABG O2 Saturation ABG Base Excess ABG Hemoglobin Oxyhemoglobin Sodium 163 H* Potassium 3.2 L Chloride 122.6 H Carbon Dioxide BUN Glucose 168 H POC Glucose 190 H Lactic Acid Calcium AST ALT Lactate Dehydrogenase Total Creatine Kinase C-Reactive Protein Albumin Urine WBC (Auto) Urine Total Protein Digoxin Salicylates Acetaminophen 12/24/19 12/24/19 12/24/19 15:00 16:28 21:15 WBC Hgb Hct MCH MCHC RDW Lymph % (Auto) [place] % (Auto) Eos % (Auto) Lymph # [place] # Seg Neutrophils % Monocytes % (Manual) Monocytes # (Manual) D-Dimer ABG pH ABG pO2 ABG HCO3 ABG O2 Saturation ABG Base Excess ABG Hemoglobin Oxyhemoglobin Sodium 165 H* D 163 H* Potassium Chloride Carbon Dioxide BUN Glucose POC Glucose 160 H Lactic Acid Calcium AST ALT Lactate Dehydrogenase Total Creatine Kinase C-Reactive Protein Albumin Urine WBC (Auto) Urine Total Protein Digoxin Salicylates Acetaminophen 12/25/19 12/25/19 12/25/19 00:31 05:38 05:46 WBC Hgb 9.7 L Hct 32.5 L MCH 25 L MCHC 30 L RDW 19.4 H Lymph % (Auto) [place] % (Auto) Eos % (Auto) Lymph # [place] # Seg Neutrophils % Monocytes % (Manual) Monocytes # (Manual) D-Dimer ABG pH ABG pO2 ABG HCO3 ABG O2 Saturation ABG Base Excess ABG Hemoglobin Oxyhemoglobin Sodium Potassium Chloride Carbon Dioxide BUN Glucose POC Glucose 182 H 194 H Lactic Acid Calcium AST ALT Lactate Dehydrogenase Total Creatine Kinase C-Reactive Protein Albumin Urine WBC (Auto) Urine Total Protein Digoxin Salicylates Acetaminophen 12/25/19 12/25/19 12/25/19 05:46 11:35 11:38 WBC Hgb Hct MCH MCHC RDW Lymph % (Auto) [place] % (Auto) Eos % (Auto) Lymph # [place] # Seg Neutrophils % Monocytes % (Manual) Monocytes # (Manual) D-Dimer ABG pH 7.330 L ABG pO2 65.7 L ABG HCO3 32.6 H ABG O2 Saturation 92.5 L ABG Base Excess 5.3 H ABG Hemoglobin 10.4 L Oxyhemoglobin 90.0 L Sodium 166 H* Potassium 2.9 L* Chloride 124.5 H Carbon Dioxide BUN Glucose 190 H POC Glucose 192 H Lactic Acid Calcium AST ALT Lactate Dehydrogenase Total Creatine Kinase C-Reactive Protein Albumin Urine WBC (Auto) Urine Total Protein Digoxin Salicylates Acetaminophen 12/25/19 12/25/19 12/25/19 13:01 16:45 17:20 WBC Hgb Hct MCH MCHC RDW Lymph % (Auto) [place] % (Auto) Eos % (Auto) Lymph # [place] # Seg Neutrophils % Monocytes % (Manual) Monocytes # (Manual) D-Dimer ABG pH 7.296 L ABG pO2 101.5 H ABG HCO3 33.2 H ABG O2 Saturation ABG Base Excess 5.3 H ABG Hemoglobin 9.6 L Oxyhemoglobin 94.6 L Sodium 174 H* Potassium Chloride Carbon Dioxide BUN Glucose POC Glucose Lactic Acid Calcium AST ALT Lactate Dehydrogenase Total Creatine Kinase C-Reactive Protein Albumin Urine WBC (Auto) Urine Total Protein < 4 L Digoxin Salicylates Acetaminophen 12/25/19 12/25/19 12/26/19 17:48 18:50 00:43 WBC Hgb Hct MCH MCHC RDW Lymph % (Auto) [place] % (Auto) Eos % (Auto) Lymph # [place] # Seg Neutrophils % Monocytes % (Manual) Monocytes # (Manual) D-Dimer ABG pH ABG pO2 ABG HCO3 ABG O2 Saturation ABG Base Excess ABG Hemoglobin Oxyhemoglobin Sodium 166 H* 164 H* Potassium Chloride 127.3 H Carbon Dioxide BUN Glucose 220 H POC Glucose 252 H Lactic Acid Calcium AST ALT Lactate Dehydrogenase Total Creatine Kinase C-Reactive Protein Albumin Urine WBC (Auto) Urine Total Protein Digoxin Salicylates Acetaminophen 12/26/19 12/26/19 12/26/19 05:31 08:07 08:07 WBC 4.3 L Hgb 9.6 L Hct 32.1 L MCH 26 L MCHC 30 L RDW 20.5 H Lymph % (Auto) [place] % (Auto) Eos % (Auto) Lymph # [place] # Seg Neutrophils % Monocytes % (Manual) Monocytes # (Manual) D-Dimer ABG pH ABG pO2 ABG HCO3 ABG O2 Saturation ABG Base Excess ABG Hemoglobin Oxyhemoglobin Sodium 162 H* Potassium Chloride 122.1 H Carbon Dioxide BUN Glucose 247 H POC Glucose 187 H Lactic Acid Calcium AST ALT Lactate Dehydrogenase Total Creatine Kinase C-Reactive Protein Albumin Urine WBC (Auto) Urine Total Protein Digoxin Salicylates Acetaminophen 12/26/19 08:07 WBC Hgb Hct MCH MCHC RDW Lymph % (Auto) [place] % (Auto) Eos % (Auto) Lymph # [place] # Seg Neutrophils % Monocytes % (Manual) Monocytes # (Manual) D-Dimer ABG pH ABG pO2 ABG HCO3 ABG O2 Saturation ABG Base Excess ABG Hemoglobin Oxyhemoglobin Sodium 159 H Potassium Chloride Carbon Dioxide BUN Glucose POC Glucose Lactic Acid Calcium AST ALT Lactate Dehydrogenase Total Creatine Kinase C-Reactive Protein Albumin Urine WBC (Auto) Urine Total Protein Digoxin Salicylates Acetaminophen Allied health notes reviewed: RT
--- NOTE | 2019-12-26 13:58 | Progress Note ---
Assessment and Plan Assessment and plan: 59-year-old male past medical history diastolic CHF, OHS, HTN, DM 2, hypothyroidism admitted with confusion after being found by a neighbor. On arrival patient was found to be lethargic, and in respiratory distress and hypoxic. Patient was intubated in the ER because of hypoxic respiratory failure. Also noted to be hypotensive, placed on pressor admitted to ICU. Patient is negative for COVID-19, being treated for bilateral pneumonia. JAGDEEP improved with IV fluid, ID and critical care following. Chest x-ray: Left lower lobe airspace disease CT chest: 1. Patchy bilateral nodular and consolidative airspace opacities which are nonspecific but likely related to the reported history of Covid. 2. Multiple enlarged partially visualized left supraclavicular and lower cervical chain lymph nodes. While these are nonspecific and may be reactive, a neoplastic process is possible, recommend short interval follow-up after patient recovers from the acute episode. / Acute hypoxic respiratory failure Likely from bilateral pneumonia and diastolic heart failure Patient intubated, placed on ventilatory support. critical care team consulted in ED. Patient is extubated, continue nebulizer breathing treatment and as needed biPAP We will also do a swallow eval / Sepsis with shock cont IV antibiotic therapy, IV fluid resuscitation therapy, monitor urine output every shift, maintain mean arterial blood pressure greater than or equal to 65, s/p IV pressor support. / Suspected 2019-nCoV infection -ruled out with 2 negative test / Diastolic CHF Preserved EF based on prior echocardiogram Monitor weight strict I's/O, daily weight, monitor urine output every shift, submental oxygen, blood pressure control. /JAGDEEP, due to vasomotor nephropathy, present on admission -Creatinine improving, continue IV fluid -Likely due to severe sepsis and hypotension /hypernatremia, -due to dehydration and sepsis -change fluid to D5W - monitor BMP /Hypokalemia, replete / Diabetes type II Initiate tube feeding diet Sliding scale insulin, Accu-Chek, hypoglycemia protocol. / Hypothyroidism Synthroid therapy, supportive care. / Bilateral pneumonia Pneumonia protocol: IV antibiotic therapy with rocephin for total 7 days, pulse oximetry, /Cervical lymphadenopathy -Reactive versus infectious process versus malignancy -Need repeat scanning and further staging when medically more stable -Pulmonology and ID following / HTN (hypertension) -hold BP meds as patient is hypotensive Monitor blood pressure every shift, continue medical management. /History of obstructive sleep apnea -Patient currently on mechanical ventilation /Acute metabolic encephalopathy Secondary to hyponatremia. /Urinary retention, suspected in the ER -Patient having good urine output now, will hold any CT scan -Continue IV fluid / DVT prophylaxis SCD to bilateral lower extremities while in bed, prophylactic heparin 12/19/19: Negative for COVID-19, continue pressor and wean off as tolerated, con tinue IV antibiotic and follow cultures. 12/19: Weaned off from pressor, sodium 156>157>153 today, creatinine 1.4>1.2>1.0. Continue IV fluid. Wean off from vent as tolerated. Follow ID recommendation 12/20: Extubated today, continue to monitor in the ICU overnight if clinically stable with transfer out to [facility]/telemetry tomorrow a.m.. Sodium 149 today, continue IV fluid and monitor BMP. Swallow eval, PT OT eval. 2nd text for covid is negative 12/21: transfer to [facility], start on gentle hydration. mechanical soft diet 12/22: placed back on bipap, Na 163 - start on D5W, monitor bmp 12/23: spoke to sister, updated [id number], also discussed Pulmonary, will likely need LTAC. Obtain Nephrology due to persistent Hypernatremia. Will start on free water and continue to monitor. Remains of restriants for safety due to intermittent confusion. 12/24: Still with intermittent encephalopathy. Requiring restraints. Hyponatremia still persist continue hypotonic solution. Nephrology consulted. Free water started this morning will increase dose. Replace potassium as hypokalemia still persist 12/26/19: Clinically improving, BIPAP now PRN AND HS, Na improving, continue renal follow up. I have called [facility] in case they would like to transfer the patient tested previously requested. The high probability of a clinically significant, sudden or life threatening deterioration of the [renal, pulmonary] system(s) required my full and direct attention, intervention and personal management. The aggregate critical care time was [35] minutes. This time is in addition to time spent performing reported procedures but includes the following: [x] Data Review and interpretation [x] Patient assessment and monitoring of vital signs [x] Documentation [x] Medication orders and management History Interval history: Patient seen and examined, was on BiPAP this morning but since has been removed and clinically improving. Hospitalist Physical - Physical exam Narrative exam: GENERAL: well-developed obese white male lying on bed on restriants due to confusion and pulling,now off BIPAP HEENT: Normocephalic. Atraumatic. No conjunctival congestion or icterus. Patient has moist mucous membranes. NECK: Supple. Trachea midline. CHEST/LUNGS: Coarse breath sound auscultated bilaterally, HEART/CARDIOVASCULAR: Regular in rate and rhythm. S1 and S2 positive. ABDOMEN: Abdomen is soft, nontender. Patient has normal bowel sounds. SKIN: There is no rash. Warm and dry. NEURO: follows some command, AMS, no focal deficits MUSCULOSKELETAL: No joint effusion or tenderness. EXTRIMITY: No edema, no cyanosis or clubbing. PSYCH: Cooperative - Constitutional Vitals: Temp Pulse Resp BP Pulse Ox 96.8 F L 63 16 119/79 95 12/26/19 04:00 12/26/19 12:00 12/26/19 12:00 12/26/19 12:00 12/26/19 13:15 General appearance: Present: severe distress HEART Score - HEART Score Troponin: Troponin T 0.011 ng/mL (0.00-0.029) 12/18/19 14:45 Results - Labs CBC & Chem 7: 12/26/19 08:07 12/26/19 08:07 Labs: Laboratory Last Values WBC 4.3 K/mm3 (4.5-11.0) L 12/26/19 08:07 RBC 3.74 M/mm3 (3.65-5.03) 12/26/19 08:07 Hgb 9.6 gm/dl (11.8-15.2) L 12/26/19 08:07 Hct 32.1 % (35.5-45.6) L 12/26/19 08:07 MCV 86 fl (84-94) 12/26/19 08:07 MCH 26 pg (28-32) L 12/26/19 08:07 MCHC 30 % (32-34) L 12/26/19 08:07 RDW 20.5 % (13.2-15.2) H 12/26/19 08:07 Plt Count 150 K/mm3 (140-440) 12/26/19 08:07 Lymph % (Auto) 9.0 % (13.4-35.0) L 12/22/19 05:15 [place] % (Auto) 12.3 % (0.0-7.3) H 12/22/19 05:15 Eos % (Auto) 5.0 % (0.0-4.3) H 12/22/19 05:15 Baso % (Auto) 0.5 % (0.0-1.8) 12/22/19 05:15 Lymph # 0.5 K/mm3 (1.2-5.4) L 12/22/19 05:15 [place] # 0.7 K/mm3 (0.0-0.8) 12/22/19 05:15 Eos # 0.3 K/mm3 (0.0-0.4) 12/22/19 05:15 Baso # 0.0 K/mm3 (0.0-0.1) 12/22/19 05:15 Add Manual Diff Complete 12/24/19 04:53 Total Counted 100 12/24/19 04:53 Seg Neutrophils % 73.2 % (40.0-70.0) H 12/22/19 05:15 Seg Neuts % (Manual) 60.0 % (40.0-70.0) 12/24/19 04:53 Band Neutrophils % 0 % 12/24/19 04:53 Lymphocytes % (Manual) 20.0 % (13.4-35.0) 12/24/19 04:53 Reactive Lymphs % (Man) 0 % 12/24/19 04:53 Monocytes % (Manual) 15.0 % (0.0-7.3) H 12/24/19 04:53 Eosinophils % (Manual) 4.0 % (0.0-4.3) 12/24/19 04:53 Basophils % (Manual) 0 % (0.0-1.8) 12/24/19 04:53 Metamyelocytes % 1.0 % 12/24/19 04:53 Myelocytes % 0 % 12/24/19 04:53 Promyelocytes % 0 % 12/24/19 04:53 Blast Cells % 0 % 12/24/19 04:53 Nucleated RBC % Not Reportable 12/24/19 04:53 Seg Neutrophils # 4.4 K/mm3 (1.8-7.7) 12/22/19 05:15 Seg Neutrophils # Man 3.5 K/mm3 (1.8-7.7) 12/24/19 04:53 Band Neutrophils # 0.0 K/mm3 12/24/19 04:53 Lymphocytes # (Manual) 1.2 K/mm3 (1.2-5.4) 12/24/19 04:53 Abs React Lymphs (Man) 0.0 K/mm3 12/24/19 04:53 Monocytes # (Manual) 0.9 K/mm3 (0.0-0.8) H 12/24/19 04:53 Eosinophils # (Manual) 0.2 K/mm3 (0.0-0.4) 12/24/19 04:53 Basophils # (Manual) 0.0 K/mm3 (0.0-0.1) 12/24/19 04:53 Metamyelocytes # 0.1 K/mm3 12/24/19 04:53 Myelocytes # 0.0 K/mm3 12/24/19 04:53 Promyelocytes # 0.0 K/mm3 12/24/19 04:53 Blast Cells # 0.0 K/mm3 12/24/19 04:53 WBC Morphology Not Reportable 12/24/19 04:53 Hypersegmented Neuts Not Reportable 12/24/19 04:53 Hyposegmented Neuts Not Reportable 12/24/19 04:53 Hypogranular Neuts Not Reportable 12/24/19 04:53 Smudge Cells Not Reportable 12/24/19 04:53 Toxic Granulation Not Reportable 12/24/19 04:53 Toxic Vacuolation Not Reportable 12/24/19 04:53 Dohle Bodies Not Reportable 12/24/19 04:53 Pelger-Huet Anomaly Not Reportable 12/24/19 04:53 Mervin Rods Not Reportable 12/24/19 04:53 Platelet Estimate Consistent w auto 12/24/19 04:53 Clumped Platelets Not Reportable 12/24/19 04:53 Plt Clumps, EDTA Not Reportable 12/24/19 04:53 Large Platelets Not Reportable 12/24/19 04:53 Giant Platelets Not Reportable 12/24/19 04:53 Platelet Satelliting Not Reportable 12/24/19 04:53 Plt Morphology Comment Not Reportable 12/24/19 04:53 RBC Morphology Not Reportable 12/24/19 04:53 Dimorphic RBCs Not Reportable 12/24/19 04:53 Polychromasia Rare 12/24/19 04:53 Hypochromasia 1+ 12/24/19 04:53 Poikilocytosis Not Reportable 12/24/19 04:53 Anisocytosis 1+ 12/24/19 04:53 Microcytosis Few 12/24/19 04:53 Macrocytosis Not Reportable 12/24/19 04:53 Spherocytes Not Reportable 12/24/19 04:53 Pappenheimer Bodies Not Reportable 12/24/19 04:53 Sickle Cells Not Reportable 12/24/19 04:53 Target Cells Not Reportable 12/24/19 04:53 Tear Drop Cells Not Reportable 12/24/19 04:53 Ovalocytes Few 12/24/19 04:53 Helmet Cells Not Reportable 12/24/19 04:53 Brink-Silkworth Bodies Not Reportable 12/24/19 04:53 Martin Rings Not Reportable 12/24/19 04:53 Ileana Cells Not Reportable 12/24/19 04:53 Bite Cells Not Reportable 12/24/19 04:53 Crenated Cell Not Reportable 12/24/19 04:53 Elliptocytes Not Reportable 12/24/19 04:53 Acanthocytes (Spur) Not Reportable 12/24/19 04:53 Rouleaux Not Reportable 12/24/19 04:53 Hemoglobin C Crystals Not Reportable 12/24/19 04:53 Schistocytes Not Reportable 12/24/19 04:53 Malaria parasites Not Reportable 12/24/19 04:53 Gianni Bodies Not Reportable 12/24/19 04:53 Hem Pathologist Commnt No 12/24/19 04:53 PT 14.0 Sec. (12.2-14.9) 12/18/19 14:45 INR 1.10 (0.87-1.13) 12/18/19 14:45 APTT 29.4 Sec. (24.2-36.6) 12/18/19 14:45 D-Dimer 534.45 ng/mlDDU (0-234) H 12/18/19 14:45 ABG pH 7.296 pH Units (7.350-7.450) L 12/25/19 17:20 ABG pCO2 69.6 mm Hg 12/25/19 17:20 ABG pO2 101.5 mm Hg (80.0-90.0) H 12/25/19 17:20 ABG HCO3 33.2 mmol/L (20.0-26.0) H 12/25/19 17:20 ABG O2 Saturation 97.1 % (95.0-99.0) 12/25/19 17:20 ABG O2 Content 13.0 (0.0-44) 12/25/19 17:20 ABG Base Excess 5.3 mmol/L (-2.0-3.0) H 12/25/19 17:20 ABG Hemoglobin 9.6 gm/dl (14.0-18.0) L 12/25/19 17:20 ABG Carboxyhemoglobin 1.9 % (0.0-5.0) 12/25/19 17:20 ABG Methemoglobin 0.7 % (0.0-1.5) 12/25/19 17:20 Oxyhemoglobin 94.6 % (95.0-99.0) L 12/25/19 17:20 FiO2 65 % 12/25/19 17:20 Sodium 159 mmol/L (137-145) H 12/26/19 08:07 Sodium 162 mmol/L (137-145) H* 12/26/19 08:07 Potassium 4.1 mmol/L (3.6-5.0) 12/26/19 08:07 Chloride 122.1 mmol/L (98-107) H 12/26/19 08:07 Carbon Dioxide 30 mmol/L (22-30) 12/26/19 08:07 Anion Gap 14 mmol/L 12/26/19 08:07 BUN 11 mg/dL (9-20) 12/26/19 08:07 Creatinine 1.3 mg/dL (0.8-1.5) 12/26/19 08:07 Estimated GFR > 60 ml/min 12/26/19 08:07 BUN/Creatinine Ratio 8 % 12/26/19 08:07 Glucose 247 mg/dL (75-100) H 12/26/19 08:07 POC Glucose 187 (70-105) H 12/26/19 05:31 Lactic Acid 1.40 mmol/L (0.7-2.0) 12/18/19 23:08 Calcium 8.8 mg/dL (8.4-10.2) 12/26/19 08:07 Phosphorus 4.40 mg/dL (2.5-4.5) 12/18/19 15:24 Magnesium 2.00 mg/dL (1.7-2.3) 12/18/19 14:45 Ferritin 83.4 ng/mL (13.0-400.0) 12/18/19 14:45 Total Bilirubin 0.30 mg/dL (0.1-1.2) 12/19/19 04:13 AST 85 units/L (5-40) H 12/19/19 04:13 ALT 61 units/L (7-56) H 12/19/19 04:13 Alkaline Phosphatase 80 units/L (35-129) 12/19/19 04:13 Ammonia 39.0 umol/L (25-60) 12/18/19 14:45 Lactate Dehydrogenase 235 units/L (91-180) H 12/18/19 14:45 Lactate Dehydrogenase 236 units/L (91-180) H 12/18/19 14:45 Total Creatine Kinase 40 units/L (55-170) L 12/18/19 14:45 Troponin T 0.011 ng/mL (0.00-0.029) 12/18/19 14:45 C-Reactive Protein 8.40 mg/dL (0.00-1.30) H 12/18/19 14:45 C-Reactive Protein 8.50 mg/dL (0.00-1.30) H 12/18/19 14:45 Total Protein 6.8 g/dL (6.3-8.2) 12/19/19 04:13 Albumin 3.0 g/dL (3.9-5) L 12/19/19 04:13 Albumin/Globulin Ratio 0.8 % 12/19/19 04:13 Procalcitonin 0.22 ng/mL (<0.15) 12/18/19 14:45 TSH 2.300 mlU/mL (0.270-4.200) 12/18/19 14:45 Urine Color Yellow (Yellow) 12/19/19 16:50 Urine Turbidity Clear (Clear) 12/19/19 16:50 Urine pH 5.0 (5.0-7.0) 12/19/19 16:50 Ur Specific [place] 1.010 (1.003-1.030) 12/19/19 16:50 Urine Protein <15 mg/dl mg/dL (Negative) 12/19/19 16:50 Urine Glucose (UA) 150 mg/dL (Negative) 12/19/19 16:50 Urine Ketones Neg mg/dL (Negative) 12/19/19 16:50 Urine Blood Neg (Negative) 12/19/19 16:50 Urine Nitrite Neg (Negative) 12/19/19 16:50 Urine Bilirubin Neg (Negative) 12/19/19 16:50 Urine Urobilinogen < 2.0 mg/dL (<2.0) 12/19/19 16:50 Ur Leukocyte Esterase Tr (Negative) 12/19/19 16:50 Urine WBC (Auto) 7.0 /HPF (0.0-6.0) H 12/19/19 16:50 Urine RBC (Auto) 4.0 /HPF (0.0-6.0) 12/19/19 16:50 U Epithel Cells (Auto) 1.0 /HPF (0-13.0) 12/19/19 16:50 Urine Bacteria (Auto) 1+ /HPF (Negative) 12/19/19 16:50 Urine Mucus Few /HPF 12/19/19 16:50 Urine Osmolality 140 Mosm/kg 12/25/19 16:45 Urine Creatinine < 4.2 mg/dL (0.1-20.0) 12/25/19 16:45 Urine Sodium 10 mmol/L 12/25/19 16:45 Urine Total Protein < 4 mg/dL (5-11.8) L 12/25/19 16:45 Digoxin 0.3 ng/mL (0.9-2.0) L 12/18/19 14:45 Salicylates < 0.3 mg/dL (2.8-20.0) L 12/18/19 14:45 Acetaminophen < 5.0 ug/mL (10.0-30.0) L 12/18/19 14:45 Plasma/Serum Alcohol < 0.01 % (0-0.07) 12/18/19 14:45 Coronavirus (PCR) Negative (Negative) 12/21/19 14:45 Blood Type A POSITIVE 12/18/19 14:45 Antibody Screen Negative 12/18/19 14:45 Microbiology: Microbiology 12/18/19 13:33 Tracheal Aspirate Sputum Culture - Preliminary Sykes/IV: Voiding Method Condom Catheter IV Catheter Type [Right Wrist] Peripheral IV IV Catheter Type [Right Hand] INT / Saline Lock IV Catheter Type [Left Hand] INT / Saline Lock IV Catheter Type [Left Forearm INT / Saline Lock ] IV Catheter Type [Left Triple Lumen Cath Internal Jugular] Active Medications - Current Medications Current Medications: Generic Name Dose Route Start Last Admin Trade Name Freq PRN Reason Stop Dose Admin Albuterol/Ipratropium 1 ampul 12/18/19 14:00 12/26/19 13:45 Duoneb *Not For Prn Use* IH 1 ampul TIDRT SHANEL Administration Lipase/Protease/Amylase 1 each 12/19/19 08:29 Pancreaztatyana Cabrera 10,500 Unit FEEDTUBE PRN PRN For Clogged Feeding Tube Aspirin 81 mg 12/19/19 10:00 12/26/19 09:16 Baby Aspirin PO 81 mg DAILY SHANEL Administration Famotidine 20 mg 12/20/19 10:00 12/26/19 09:16 Pepcid PO 20 mg BID SHANEL Administration Folic Acid 1 mg 12/19/19 10:00 12/26/19 09:16 Folvite PO 1 mg DAILY SHANEL Administration Heparin Sodium (Porcine) 5,000 unit 12/18/19 22:00 12/26/19 09:16 Heparin SUB-Q 5,000 unit Q12HR SHANEL Administration Hydrophilic Ointment 1 applic 12/18/19 12:35 Vaseline Lip Therapy TP Q2HR PRN Dry Lips Potassium Chloride 40 meq/ 1,020 mls @ 42 mls/hr 12/25/19 11:15 12/25/19 14:06 Dextrose IV 42 mls/hr DIRECT SHANEL Administration Insulin Glargine 5 units 12/21/19 22:00 12/25/19 23:25 Lantus SUB-Q 5 units QHS SHANEL Administration Insulin Human Lispro 0 unit 12/20/19 00:00 12/26/19 05:41 Humalog SUB-Q Not Given Q6HR [facility] Protocol Levothyroxine Sodium 88 mcg 12/19/19 06:00 12/26/19 05:48 Synthroid PO 88 mcg QAM@0600 SHANEL Administration Multi-Ingred Cream/Lotion/Oil/Oint 1 applic 12/18/19 12:35 Artificial Tears Ophth Oint OU Q4HR PRN Dry Eye(s) Potassium Chloride 20 meq 12/19/19 10:00 12/26/19 09:16 Potassium Chloride FEEDTUBE 20 meq QDAY SHANEL Administration Simple Syrup 15 ml 12/19/19 08:29 Simple Syrup FEEDTUBE PRN PRN Hypoglycemia Simple Syrup 30 ml 12/19/19 08:29 Simple Syrup FEEDTUBE PRN PRN Hypoglycemia Sodium Bicarbonate 325 mg 12/19/19 08:29 Sodium Bicarbonate FEEDTUBE PRN PRN For Clogged Feeding Tube Sodium Chloride 10 ml 12/18/19 22:00 12/26/19 09:17 Sodium Chloride Flush Syringe 10 Ml IV 10 ml BID SHANEL Administration Sodium Chloride 10 ml 12/18/19 13:31 Sodium Chloride Flush Syringe 10 Ml IV PRN PRN LINE FLUSH Nutrition/Malnutrition Assess - Dietary Evaluation Nutrition/Malnutrition Findings: Nutrition Notes Start: 12/19/19 08:16 Freq: Status: Active Protocol: Document 12/24/19 13:29 LM (Rec: 12/24/19 13:33 LM [id number]) Nutrition Notes Initial or Follow up Reassessment Current Diagnosis Diabetes,Sepsis,Hypertension, Heart Failure,Respiratory Failure Other Pertinent Diagnosis Suspected COVID-19, pneu Current Diet [facility] soft Labs/Tests Na 145 K 3.2 Pertinent Medications D5w at 75ml/hr Height 6 ft 2 in Weight 117 kg [place] Body Weight (kg) 86.36 BMI 33.1 Weight Status Obese Subjective/Other Information Pt extubated and Diet advanced to [facility] softRN stated that pt is refusing meals and all liquids. RN stated she will speak to MD about dobhoff. Percent of energy/protein needs met: 0%/0% Burn Absent Trauma Absent Current % PO Negligible Minimum of two criteria No physical signs of malnutrition #1 Nutrition Diagnosis Inadequate oral intake Diagnosis Progress(for reassessment Continues documentation) Is patient on ventilator? No Is Patient Ambulatory and/or Out of Bed No REE-([facility]-confined to bed) 2469.960 Kcal/Kg value to use for calculation 17 Approximate Energy Requirements Using 1989 kcal/Kg Calculation Used for Recommendations Kcal/kg Additional Notes Protein: 82-102g (0.8-1g/kg using AdjBW 102kg) Fluid: 1ml/kcal Nutrition Intervention Change Diet Order: recommend TF when medically feasible Goal #1 Meet at least 80% of kcal and protein needs Anticipated Discharge Needs: unable to determine at this time Follow-Up By: 12/27/19 Additional Comments F/U for intakes/dobhoff
[2019-12-26] MEDS: POTASSIUM CHLORIDE 40 MEQ in DEXTROSE 10% IN WATER 1,000 ML IV SCH (14:24)
[2019-12-26 16:33] LABS: ABG Base Excess 5.2 mmol/L (-2.0-3.0); ABG HCO3 33.2 mmol/L (20.0-26.0); ABG Methemoglobin 0.4 % (0.0-1.5); ABG Oxygen Saturation 94.9 % (95.0-99.0); ABG PCO2 70.7 mm Hg; ABG PH 7.29 pH Units (7.350-7.450); ABG PO2 73.2 mm Hg (80.0-90.0)
[2019-12-26] MEDS: INSULIN GLARGINE 100 UNITS/ML SUB-Q SCH (22:53)
[2019-12-27 04:26] LABS: Mean Corpuscular HGB Conc 29 % (32-34); Mean Corpuscular Volume 86 fl (84-94); Platelet Count 155 K/mm3 (140-440); Red Blood Count 4.12 M/mm3 (3.65-5.03)
[2019-12-27 04:28] LABS: Hematocrit 35.4 % (35.5-45.6); Hemoglobin 10.1 gm/dl (11.8-15.2); Red Cell Distribution Width 20.1 % (13.2-15.2)
[2019-12-27 04:34] LABS: BUN/Creatinine Ratio 11; Blood Urea Nitrogen 13 mg/dL (9-20); Calcium 9.2 mg/dL (8.4-10.2); Hemolysis Index 4
--- NOTE | 2019-12-27 04:35 | XRay Report ---
ABDOMEN SUPINE INDICATION / CLINICAL INFORMATION: Feeding tube placement confirmation.. COMPARISON: 12/24/2019 FINDINGS: Dobbhoff tube has been removed. Standard nasogastric tube is projected over the mid stomach. Signer Name: Abhinav Morales MD Signed: 12/27/2019 4:30 AM Workstation Name: [id number] ([employer])
[2019-12-27] MEDS: LEVOTHYROXINE 88 MCG TAB PO SCH (06:09)
[2019-12-27] MEDS: INSULIN LISPRO 100 UNIT/ML SUB-Q SCH ×3 (06:09→19:43)
[2019-12-27] MEDS: IPRATROPIUM/ALBUTEROL SULFATE 3 ML AMPUL.NEB IH SCH ×3 (08:01→20:20)
--- NOTE | 2019-12-27 10:01 | Progress Note ---
Assessment and Plan Assessment and plan: 59-year-old male past medical history diastolic CHF, OHS, HTN, DM 2, hypothyroidism admitted with confusion after being found by a neighbor. On arrival patient was found to be lethargic, and in respiratory distress and hypoxic. Patient was intubated in the ER because of hypoxic respiratory failure. Also noted to be hypotensive, placed on pressor admitted to ICU. Patient is negative for COVID-19, being treated for bilateral pneumonia. JAGDEEP improved with IV fluid, ID and critical care following. Chest x-ray: Left lower lobe airspace disease CT chest: 1. Patchy bilateral nodular and consolidative airspace opacities which are nonspecific but likely related to the reported history of Covid. 2. Multiple enlarged partially visualized left supraclavicular and lower cervical chain lymph nodes. While these are nonspecific and may be reactive, a neoplastic process is possible, recommend short interval follow-up after patient recovers from the acute episode. / Acute hypoxic respiratory failure Likely from bilateral pneumonia and diastolic heart failure Patient intubated, placed on ventilatory support. critical care team consulted in ED. Patient is extubated, continue nebulizer breathing treatment and as needed biPAP We will also do a swallow eval / Sepsis with shock cont IV antibiotic therapy, IV fluid resuscitation therapy, monitor urine output every shift, maintain mean arterial blood pressure greater than or equal to 65, s/p IV pressor support. / Suspected 2019-nCoV infection -ruled out with 2 negative test / Diastolic CHF Preserved EF based on prior echocardiogram Monitor weight strict I's/O, daily weight, monitor urine output every shift, submental oxygen, blood pressure control. /JAGDEEP, due to vasomotor nephropathy, present on admission -Creatinine improving, continue IV fluid -Likely due to severe sepsis and hypotension /hypernatremia, -due to dehydration and sepsis -change fluid to D5W - monitor BMP /Hypokalemia, replete / Diabetes type II Initiate tube feeding diet Sliding scale insulin, Accu-Chek, hypoglycemia protocol. / Hypothyroidism Synthroid therapy, supportive care. / Bilateral pneumonia Pneumonia protocol: IV antibiotic therapy with rocephin for total 7 days, pulse oximetry, /Cervical lymphadenopathy -Reactive versus infectious process versus malignancy -Need repeat scanning and further staging when medically more stable -Pulmonology and ID following / HTN (hypertension) -hold BP meds as patient is hypotensive Monitor blood pressure every shift, continue medical management. /History of obstructive sleep apnea -Patient currently on mechanical ventilation /Acute metabolic encephalopathy Secondary to hyponatremia. /Urinary retention, suspected in the ER -Patient having good urine output now, will hold any CT scan -Continue IV fluid / DVT prophylaxis SCD to bilateral lower extremities while in bed, prophylactic heparin 12/19/19: Negative for COVID-19, continue pressor and wean off as tolerated, con tinue IV antibiotic and follow cultures. 12/19: Weaned off from pressor, sodium 156>157>153 today, creatinine 1.4>1.2>1.0. Continue IV fluid. Wean off from vent as tolerated. Follow ID recommendation 12/20: Extubated today, continue to monitor in the ICU overnight if clinically stable with transfer out to [facility]/telemetry tomorrow a.m.. Sodium 149 today, continue IV fluid and monitor BMP. Swallow eval, PT OT eval. 2nd text for covid is negative 12/21: transfer to [facility], start on gentle hydration. mechanical soft diet 12/22: placed back on bipap, Na 163 - start on D5W, monitor bmp 12/23: spoke to sister, updated [id number], also discussed Pulmonary, will likely need LTAC. Obtain Nephrology due to persistent Hypernatremia. Will start on free water and continue to monitor. Remains of restriants for safety due to intermittent confusion. 12/24: Still with intermittent encephalopathy. Requiring restraints. Hyponatremia still persist continue hypotonic solution. Nephrology consulted. Free water started this morning will increase dose. Replace potassium as hypokalemia still persist 12/26/19: Clinically improving, BIPAP now PRN AND HS, Na improving, continue renal follow up. I have called [facility] in case they would like to transfer the patient tested previously requested. 12/26: Hypernatermia still persist, had pulled out NGT yesterday, Continue free water, Continue Bipap, Anton states he is not yet stable for transfer. Although from our critical care team this patient has been cleared for to be able to transfer. The high probability of a clinically significant, sudden or life threatening deterioration of the [renal, pulmonary] system(s) required my full and direct attention, intervention and personal management. The aggregate critical care time was [35] minutes. This time is in addition to time spent performing reported procedures but includes the following: [x] Data Review and interpretation [x] Patient assessment and monitoring of vital signs [x] Documentation [x] Medication orders and management History Interval history: Patient seen and examined, was on BiPAP this morning but since has been removed and clinically improving. Hospitalist Physical - Physical exam Narrative exam: GENERAL: well-developed obese white male lying on bed on restriants due to confusion and pulling,now off BIPAP HEENT: Normocephalic. Atraumatic. No conjunctival congestion or icterus. Patient has moist mucous membranes. NECK: Supple. Trachea midline. CHEST/LUNGS: Coarse breath sound auscultated bilaterally, HEART/CARDIOVASCULAR: Regular in rate and rhythm. S1 and S2 positive. ABDOMEN: Abdomen is soft, nontender. Patient has normal bowel sounds. SKIN: There is no rash. Warm and dry. NEURO: follows some command, AMS, no focal deficits MUSCULOSKELETAL: No joint effusion or tenderness. EXTRIMITY: No edema, no cyanosis or clubbing. PSYCH: Cooperative - Constitutional Vitals: Temp Pulse Resp BP Pulse Ox 97.0 F L 72 35 H 110/68 90 12/27/19 08:00 12/27/19 08:02 12/27/19 08:02 12/27/19 08:00 12/27/19 08:01 General appearance: Present: severe distress HEART Score - HEART Score Troponin: Troponin T 0.011 ng/mL (0.00-0.029) 12/18/19 14:45 Results - Labs CBC & Chem 7: 12/27/19 03:48 12/27/19 03:48 Labs: Laboratory Last Values WBC 4.9 K/mm3 (4.5-11.0) 12/27/19 03:48 RBC 4.12 M/mm3 (3.65-5.03) 12/27/19 03:48 Hgb 10.1 gm/dl (11.8-15.2) L 12/27/19 03:48 Hct 35.4 % (35.5-45.6) L 12/27/19 03:48 MCV 86 fl (84-94) 12/27/19 03:48 MCH 25 pg (28-32) L 12/27/19 03:48 MCHC 29 % (32-34) L 12/27/19 03:48 RDW 20.1 % (13.2-15.2) H 12/27/19 03:48 Plt Count 155 K/mm3 (140-440) 12/27/19 03:48 Lymph % (Auto) 9.0 % (13.4-35.0) L 12/22/19 05:15 Will % (Auto) 12.3 % (0.0-7.3) H 12/22/19 05:15 Eos % (Auto) 5.0 % (0.0-4.3) H 12/22/19 05:15 Baso % (Auto) 0.5 % (0.0-1.8) 12/22/19 05:15 Lymph # 0.5 K/mm3 (1.2-5.4) L 12/22/19 05:15 Will # 0.7 K/mm3 (0.0-0.8) 12/22/19 05:15 Eos # 0.3 K/mm3 (0.0-0.4) 12/22/19 05:15 Baso # 0.0 K/mm3 (0.0-0.1) 12/22/19 05:15 Add Manual Diff Complete 12/24/19 04:53 Total Counted 100 12/24/19 04:53 Seg Neutrophils % 73.2 % (40.0-70.0) H 12/22/19 05:15 Seg Neuts % (Manual) 60.0 % (40.0-70.0) 12/24/19 04:53 Band Neutrophils % 0 % 12/24/19 04:53 Lymphocytes % (Manual) 20.0 % (13.4-35.0) 12/24/19 04:53 Reactive Lymphs % (Man) 0 % 12/24/19 04:53 Monocytes % (Manual) 15.0 % (0.0-7.3) H 12/24/19 04:53 Eosinophils % (Manual) 4.0 % (0.0-4.3) 12/24/19 04:53 Basophils % (Manual) 0 % (0.0-1.8) 12/24/19 04:53 Metamyelocytes % 1.0 % 12/24/19 04:53 Myelocytes % 0 % 12/24/19 04:53 Promyelocytes % 0 % 12/24/19 04:53 Blast Cells % 0 % 12/24/19 04:53 Nucleated RBC % Not Reportable 12/24/19 04:53 Seg Neutrophils # 4.4 K/mm3 (1.8-7.7) 12/22/19 05:15 Seg Neutrophils # Man 3.5 K/mm3 (1.8-7.7) 12/24/19 04:53 Band Neutrophils # 0.0 K/mm3 12/24/19 04:53 Lymphocytes # (Manual) 1.2 K/mm3 (1.2-5.4) 12/24/19 04:53 Abs React Lymphs (Man) 0.0 K/mm3 12/24/19 04:53 Monocytes # (Manual) 0.9 K/mm3 (0.0-0.8) H 12/24/19 04:53 Eosinophils # (Manual) 0.2 K/mm3 (0.0-0.4) 12/24/19 04:53 Basophils # (Manual) 0.0 K/mm3 (0.0-0.1) 12/24/19 04:53 Metamyelocytes # 0.1 K/mm3 12/24/19 04:53 Myelocytes # 0.0 K/mm3 12/24/19 04:53 Promyelocytes # 0.0 K/mm3 12/24/19 04:53 Blast Cells # 0.0 K/mm3 12/24/19 04:53 WBC Morphology Not Reportable 12/24/19 04:53 Hypersegmented Neuts Not Reportable 12/24/19 04:53 Hyposegmented Neuts Not Reportable 12/24/19 04:53 Hypogranular Neuts Not Reportable 12/24/19 04:53 Smudge Cells Not Reportable 12/24/19 04:53 Toxic Granulation Not Reportable 12/24/19 04:53 Toxic Vacuolation Not Reportable 12/24/19 04:53 Dohle Bodies Not Reportable 12/24/19 04:53 Pelger-Huet Anomaly Not Reportable 12/24/19 04:53 Mervin Rods Not Reportable 12/24/19 04:53 Platelet Estimate Consistent w auto 12/24/19 04:53 Clumped Platelets Not Reportable 12/24/19 04:53 Plt Clumps, EDTA Not Reportable 12/24/19 04:53 Large Platelets Not Reportable 12/24/19 04:53 Giant Platelets Not Reportable 12/24/19 04:53 Platelet Satelliting Not Reportable 12/24/19 04:53 Plt Morphology Comment Not Reportable 12/24/19 04:53 RBC Morphology Not Reportable 12/24/19 04:53 Dimorphic RBCs Not Reportable 12/24/19 04:53 Polychromasia Rare 12/24/19 04:53 Hypochromasia 1+ 12/24/19 04:53 Poikilocytosis Not Reportable 12/24/19 04:53 Anisocytosis 1+ 12/24/19 04:53 Microcytosis Few 12/24/19 04:53 Macrocytosis Not Reportable 12/24/19 04:53 Spherocytes Not Reportable 12/24/19 04:53 Pappenheimer Bodies Not Reportable 12/24/19 04:53 Sickle Cells Not Reportable 12/24/19 04:53 Target Cells Not Reportable 12/24/19 04:53 Tear Drop Cells Not Reportable 12/24/19 04:53 Ovalocytes Few 12/24/19 04:53 Helmet Cells Not Reportable 12/24/19 04:53 Brink-Franks Field Bodies Not Reportable 12/24/19 04:53 [place] Rings Not Reportable 12/24/19 04:53 Ileana Cells Not Reportable 12/24/19 04:53 Bite Cells Not Reportable 12/24/19 04:53 Crenated Cell Not Reportable 12/24/19 04:53 Elliptocytes Not Reportable 12/24/19 04:53 Acanthocytes (Spur) Not Reportable 12/24/19 04:53 Rouleaux Not Reportable 12/24/19 04:53 Hemoglobin C Crystals Not Reportable 12/24/19 04:53 Schistocytes Not Reportable 12/24/19 04:53 Malaria parasites Not Reportable 12/24/19 04:53 Gianni Bodies Not Reportable 12/24/19 04:53 Hem Pathologist Commnt No 12/24/19 04:53 PT 14.0 Sec. (12.2-14.9) 12/18/19 14:45 INR 1.10 (0.87-1.13) 12/18/19 14:45 APTT 29.4 Sec. (24.2-36.6) 12/18/19 14:45 D-Dimer 534.45 ng/mlDDU (0-234) H 12/18/19 14:45 ABG pH 7.290 pH Units (7.350-7.450) L 12/26/19 16:25 ABG pCO2 70.7 mm Hg 12/26/19 16:25 ABG pO2 73.2 mm Hg (80.0-90.0) L 12/26/19 16:25 ABG HCO3 33.2 mmol/L (20.0-26.0) H 12/26/19 16:25 ABG O2 Saturation 94.9 % (95.0-99.0) L 12/26/19 16:25 ABG O2 Content 13.0 (0.0-44) 12/26/19 16:25 ABG Base Excess 5.2 mmol/L (-2.0-3.0) H 12/26/19 16:25 ABG Hemoglobin 10.0 gm/dl (14.0-18.0) L 12/26/19 16:25 ABG Carboxyhemoglobin 2.1 % (0.0-5.0) 12/26/19 16:25 ABG Methemoglobin 0.4 % (0.0-1.5) 12/26/19 16:25 Oxyhemoglobin 92.5 % (95.0-99.0) L 12/26/19 16:25 FiO2 60 % 12/26/19 16:25 Sodium 160 mmol/L (137-145) H 12/27/19 03:48 Potassium 3.8 mmol/L (3.6-5.0) 12/27/19 03:48 Chloride 118.8 mmol/L (98-107) H 12/27/19 03:48 Carbon Dioxide 33 mmol/L (22-30) H 12/27/19 03:48 Anion Gap 12 mmol/L 12/27/19 03:48 BUN 13 mg/dL (9-20) 12/27/19 03:48 Creatinine 1.2 mg/dL (0.8-1.5) 12/27/19 03:48 Estimated GFR > 60 ml/min 12/27/19 03:48 BUN/Creatinine Ratio 11 % 12/27/19 03:48 Glucose 217 mg/dL (75-100) H 12/27/19 03:48 POC Glucose 224 (70-105) H 12/27/19 05:50 Lactic Acid 1.40 mmol/L (0.7-2.0) 12/18/19 23:08 Calcium 9.2 mg/dL (8.4-10.2) 12/27/19 03:48 Phosphorus 4.40 mg/dL (2.5-4.5) 12/18/19 15:24 Magnesium 2.00 mg/dL (1.7-2.3) 12/18/19 14:45 Ferritin 83.4 ng/mL (13.0-400.0) 12/18/19 14:45 Total Bilirubin 0.30 mg/dL (0.1-1.2) 12/19/19 04:13 AST 85 units/L (5-40) H 12/19/19 04:13 ALT 61 units/L (7-56) H 12/19/19 04:13 Alkaline Phosphatase 80 units/L (35-129) 12/19/19 04:13 Ammonia 39.0 umol/L (25-60) 12/18/19 14:45 Lactate Dehydrogenase 235 units/L (91-180) H 12/18/19 14:45 Lactate Dehydrogenase 236 units/L (91-180) H 12/18/19 14:45 Total Creatine Kinase 40 units/L (55-170) L 12/18/19 14:45 Troponin T 0.011 ng/mL (0.00-0.029) 12/18/19 14:45 C-Reactive Protein 8.40 mg/dL (0.00-1.30) H 12/18/19 14:45 C-Reactive Protein 8.50 mg/dL (0.00-1.30) H 12/18/19 14:45 Total Protein 6.8 g/dL (6.3-8.2) 12/19/19 04:13 Albumin 3.0 g/dL (3.9-5) L 12/19/19 04:13 Albumin/Globulin Ratio 0.8 % 12/19/19 04:13 Procalcitonin 0.22 ng/mL (<0.15) 12/18/19 14:45 TSH 2.300 mlU/mL (0.270-4.200) 12/18/19 14:45 Urine Color Yellow (Yellow) 12/19/19 16:50 Urine Turbidity Clear (Clear) 12/19/19 16:50 Urine pH 5.0 (5.0-7.0) 12/19/19 16:50 Ur Specific [place] 1.010 (1.003-1.030) 12/19/19 16:50 Urine Protein <15 mg/dl mg/dL (Negative) 12/19/19 16:50 Urine Glucose (UA) 150 mg/dL (Negative) 12/19/19 16:50 Urine Ketones Neg mg/dL (Negative) 12/19/19 16:50 Urine Blood Neg (Negative) 12/19/19 16:50 Urine Nitrite Neg (Negative) 12/19/19 16:50 Urine Bilirubin Neg (Negative) 12/19/19 16:50 Urine Urobilinogen < 2.0 mg/dL (<2.0) 12/19/19 16:50 Ur Leukocyte Esterase Tr (Negative) 12/19/19 16:50 Urine WBC (Auto) 7.0 /HPF (0.0-6.0) H 12/19/19 16:50 Urine RBC (Auto) 4.0 /HPF (0.0-6.0) 12/19/19 16:50 U Epithel Cells (Auto) 1.0 /HPF (0-13.0) 12/19/19 16:50 Urine Bacteria (Auto) 1+ /HPF (Negative) 12/19/19 16:50 Urine Mucus Few /HPF 12/19/19 16:50 Urine Osmolality 140 Mosm/kg 12/25/19 16:45 Urine Creatinine < 4.2 mg/dL (0.1-20.0) 12/25/19 16:45 Urine Sodium 10 mmol/L 12/25/19 16:45 Urine Total Protein < 4 mg/dL (5-11.8) L 12/25/19 16:45 Digoxin 0.3 ng/mL (0.9-2.0) L 12/18/19 14:45 Salicylates < 0.3 mg/dL (2.8-20.0) L 12/18/19 14:45 Acetaminophen < 5.0 ug/mL (10.0-30.0) L 12/18/19 14:45 Plasma/Serum Alcohol < 0.01 % (0-0.07) 12/18/19 14:45 Coronavirus (PCR) Negative (Negative) 12/21/19 14:45 Blood Type A POSITIVE 12/18/19 14:45 Antibody Screen Negative 12/18/19 14:45 Microbiology: Microbiology 12/18/19 13:33 Tracheal Aspirate Sputum Culture - Preliminary Sykes/IV: Voiding Method Condom Catheter IV Catheter Type [Right Wrist] Peripheral IV IV Catheter Type [Right Hand] INT / Saline Lock IV Catheter Type [Left Hand] INT / Saline Lock IV Catheter Type [Left Forearm INT / Saline Lock ] IV Catheter Type [Left Triple Lumen Cath Internal Jugular] Active Medications - Current Medications Current Medications: Generic Name Dose Route Start Last Admin Trade Name Freq PRN Reason Stop Dose Admin Albuterol/Ipratropium 1 ampul 12/18/19 14:00 12/27/19 08:01 Duoneb *Not For Prn Use* IH 1 ampul TIDRT SHANEL Administration Lipase/Protease/Amylase 1 each 12/19/19 08:29 Pancrecorry Cabrera 10,500 Unit FEEDTUBE PRN PRN For Clogged Feeding Tube Aspirin 81 mg 12/19/19 10:00 12/26/19 09:16 Baby Aspirin PO 81 mg DAILY SHANEL Administration Famotidine 20 mg 12/20/19 10:00 12/26/19 22:56 Pepcid PO Not Given BID SHANEL Folic Acid 1 mg 12/19/19 10:00 12/26/19 09:16 Folvite PO 1 mg DAILY SHANEL Administration Heparin Sodium (Porcine) 5,000 unit 12/18/19 22:00 12/26/19 22:30 Heparin SUB-Q 5,000 unit Q12HR SHANEL Administration Hydrophilic Ointment 1 applic 12/18/19 12:35 Vaseline Lip Therapy TP Q2HR PRN Dry Lips Potassium Chloride 40 meq/ 1,020 mls @ 42 mls/hr 12/25/19 11:15 12/26/19 14:24 Dextrose IV 42 mls/hr DIRECT SHANEL Administration Insulin Glargine 5 units 12/21/19 22:00 12/26/19 22:53 Lantus SUB-Q 5 units QHS SHANEL Administration Insulin Human Lispro 0 unit 12/20/19 00:00 12/27/19 06:09 Humalog SUB-Q 4 unit Q6HR SHANEL Administration Protocol Levothyroxine Sodium 88 mcg 12/19/19 06:00 12/27/19 06:09 Synthroid PO 88 mcg QAM@0600 SHANEL Administration Multi-Ingred Cream/Lotion/Oil/Oint 1 applic 12/18/19 12:35 Artificial Tears Ophth Oint OU Q4HR PRN Dry Eye(s) Potassium Chloride 20 meq 12/19/19 10:00 12/26/19 09:16 Potassium Chloride FEEDTUBE 20 meq QDAY SHANEL Administration Simple Syrup 15 ml 12/19/19 08:29 Simple Syrup FEEDTUBE PRN PRN Hypoglycemia Simple Syrup 30 ml 12/19/19 08:29 Simple Syrup FEEDTUBE PRN PRN Hypoglycemia Sodium Bicarbonate 325 mg 12/19/19 08:29 Sodium Bicarbonate FEEDTUBE PRN PRN For Clogged Feeding Tube Sodium Chloride 10 ml 12/18/19 22:00 12/26/19 22:31 Sodium Chloride Flush Syringe 10 Ml IV 10 ml BID SHANEL Administration Sodium Chloride 10 ml 12/18/19 13:31 Sodium Chloride Flush Syringe 10 Ml IV PRN PRN LINE FLUSH Nutrition/Malnutrition Assess - Dietary Evaluation Nutrition/Malnutrition Findings: Nutrition Notes Start: 12/19/19 08:16 Freq: Status: Active Protocol: Document 12/24/19 13:29 LM (Rec: 12/24/19 13:33 LM [email or web address]) Nutrition Notes Initial or Follow up Reassessment Current Diagnosis Diabetes,Sepsis,Hypertension, Heart Failure,Respiratory Failure Other Pertinent Diagnosis Suspected COVID-19, pneu Current Diet [facility] soft Labs/Tests Na 145 K 3.2 Pertinent Medications D5w at 75ml/hr Height 6 ft 2 in Weight 117 kg [place] Body Weight (kg) 86.36 BMI 33.1 Weight Status Obese Subjective/Other Information Pt extubated and diet advanced to [facility] soft. RN stated that pt is refusing meals and all liquids. RN stated she will speak to MD about dobhoff. Percent of energy/protein needs met: 0%/0% Burn Absent Trauma Absent Current % PO Negligible Minimum of two criteria No physical signs of malnutrition #1 Nutrition Diagnosis Inadequate oral intake Diagnosis Progress(for reassessment Continues documentation) Is patient on ventilator? No Is Patient Ambulatory and/or Out of Bed No REE-([facility]-confined to bed) 2469.960 Kcal/Kg value to use for calculation 17 Approximate Energy Requirements Using 1989 kcal/Kg Calculation Used for Recommendations Kcal/kg Additional Notes Protein: 82-102g (0.8-1g/kg using AdjBW 102kg) Fluid: 1ml/kcal Nutrition Intervention Change Diet Order: recommend TF when medically feasible Goal #1 Meet at least 80% of kcal and protein needs Anticipated Discharge Needs: unable to determine at this time Follow-Up By: 12/27/19 Additional Comments F/U for intakes/dobhoff
[2019-12-27] MEDS: POTASSIUM CHLORIDE 20 MEQ PACKET FEEDTUBE SCH (10:23)
[2019-12-27] MEDS: FAMOTIDINE 20 MG TAB PO SCH ×2 (10:23→21:37)
[2019-12-27] MEDS: HEPARIN 5,000 UNIT/1 ML VIAL SUB-Q SCH ×2 (10:23→21:37)
[2019-12-27] MEDS: ASPIRIN 81 MG TAB CHEW PO SCH (10:23)
[2019-12-27] MEDS: FOLIC ACID 1 MG TAB PO SCH (10:23)
--- NOTE | 2019-12-27 12:58 | Progress Note ---
Assessment and Plan Acute Hypoxemic Respiratory Failure Severe Sepsis with Shock Bilateral Pneumonia PUI COVID-19 Morbid Obesity H/O CHF JOE - continue qhs BIPAP with prn daytime use - change BIPAP to 25/8 and rate of 25 - ABG in am - get USS chest +/1 thoracentesis - NGT placed - begin tube feeds - begin D5W @ 100 mls/hr X 3 liters re: hypernatremia - free water 250 mls q4h via NGT - continue care as below otherwise - repeat COVID-19 test negative - continue aspiration precautions - continue to wean supplemental oxygen for target O2 sat's > 92% acutely - continue bronchodilators with pulmonary hygiene per RT - continue accuchecks with glycemic control per SSI (While critically ill target blood glucose of 140-180 mg/dL; avoid hypoglycemia) - continue to avoid benzodiazepine's, reduce the possibility of delirium - complete AB's per ID rec's (Rocephin) - prn analgesia per pain score - Maintenance of sleep-wake cycle, avoid delirium - enteral nutritional support at goal rate as tolerated - G.I. & VTE prophylaxis - PT/OT/ROM exercises - continue mobility protocols for pressure ulcer prophylaxis - Monitor hemodynamics closely - continue other care per attending / other consultants - discharge planning ongoing concurrently - LTAC evaluation requested .... Re-evaluate in am & prn CONDITION: CRITICAL PROGNOSIS: GUARDED CODE STATUS: FULL CODE The high probability of a clinically significant, sudden or life-threatening deterioration of the [respiratory, cardiovascular, GI & neurologic] system(s) required my full and direct attention, intervention and personal management. The aggregate critical care time was [35] minutes without overlap. Time includes spent on; [x] Data Review and interpretation [x] Patient assessment and monitoring of vital signs [x] Documentation [x] Medication orders and management Subjective Date of service: 12/27/19 Principal diagnosis: Ac. Hypoxemic Resp Failure; Septic Shock; Magdiel. PNA; PUI COVID-19; CHF; JOE Interval history: Patient is seen today for: Acute Hypoxemic Respiratory Failure; Severe Sepsis with Shock; Bilateral Pneumonia; PUI COVID-19; Morbid Obesity; H/O CHF; JOE Seen and examined at bedside; 24hour events reviewed; nursing and respiratory care staff consulted; no adverse overnight events reported to me; resting peacefully in bed; remains on HFNC at 90% FiO2 but breathing much easier and tolerating daytime without BIPAP; no N/V/F/C; BP's stable Objective Vital Signs - 12hr 12/27/19 12/27/19 12/27/19 01:00 02:00 03:00 Temperature Pulse Rate 74 77 71 Pulse Rate [ Bilateral] Respiratory 20 41 H 33 H Rate Respiratory Rate [Bilateral ] Blood Pressure 100/63 104/66 103/64 O2 Sat by Pulse 96 95 94 Oximetry 12/27/19 12/27/19 12/27/19 03:35 04:00 05:00 Temperature 98.7 F Pulse Rate 68 69 Pulse Rate [ Bilateral] Respiratory 32 H 31 H Rate Respiratory Rate [Bilateral ] Blood Pressure 99/59 106/62 O2 Sat by Pulse 94 92 Oximetry 12/27/19 12/27/19 12/27/19 06:00 07:00 07:54 Temperature Pulse Rate 67 73 74 Pulse Rate [ Bilateral] Respiratory 38 H 37 H 32 H Rate Respiratory Rate [Bilateral ] Blood Pressure 103/61 114/61 102/66 O2 Sat by Pulse 89 93 92 Oximetry 12/27/19 12/27/19 12/27/19 08:00 08:01 08:02 Temperature 97.0 F L Pulse Rate 75 Pulse Rate [ 72 Bilateral] Respiratory 38 H Rate Respiratory 35 H Rate [Bilateral ] Blood Pressure 110/68 O2 Sat by Pulse 92 90 Oximetry Constitutional: no acute distress, alert, appears uncomfortable (elderly obese AAM with mildly increrased respiratory effort at rest) Eyes: non-icteric ENT: oropharynx moist, other Neck: supple, no lymphadenopathy, no JVD Effort: mildly labored Ascultation: Bilateral: diminished breath sounds, rhonchi Percussion: Bilateral: not dull Cardiovascular: regular rate and rhythm, other (S1,S2) Gastrointestinal: normoactive bowel sounds, soft, non-tender, other (protuberant) Integumentary: rash (stasis dermatyitis) Extremities: no cyanosis, pink and warm, pulses normal, no ischemia or petechiae, edema (trace) Neurologic: normal mental status, non-focal exam, pupils equal and round, CN II- XII normal, motor strength normal and (obeys simple commands) Psychiatric: mood appropriate, affect normal CBC and BMP: 12/27/19 03:48 12/27/19 03:48 ABG, PT/INR, D-dimer: ABG ABG pH 7.290 pH Units (7.350-7.450) L 12/26/19 16:25 ABG pCO2 70.7 mm Hg 12/26/19 16:25 ABG pO2 73.2 mm Hg (80.0-90.0) L 12/26/19 16:25 ABG O2 Saturation 94.9 % (95.0-99.0) L 12/26/19 16:25 PT/INR, D-dimer PT 14.0 Sec. (12.2-14.9) 12/18/19 14:45 INR 1.10 (0.87-1.13) 12/18/19 14:45 D-Dimer 534.45 ng/mlDDU (0-234) H 12/18/19 14:45 Abnormal lab findings: Abnormal Labs 12/18/19 12/18/19 12/18/19 12:23 14:45 14:45 WBC Hgb 10.4 L Hct 35.2 L MCH 25 L MCHC 30 L RDW 18.8 H Lymph % (Auto) Simpson % (Auto) 11.6 H Eos % (Auto) 4.8 H Lymph # Simpson # 1.0 H Seg Neutrophils % Monocytes % (Manual) Monocytes # (Manual) D-Dimer ABG pH ABG pO2 ABG HCO3 ABG O2 Saturation ABG Base Excess ABG Hemoglobin Oxyhemoglobin Sodium Potassium Chloride Carbon Dioxide BUN Glucose POC Glucose 328 H Lactic Acid Calcium AST ALT Lactate Dehydrogenase Total Creatine Kinase 40 L C-Reactive Protein Albumin Urine WBC (Auto) Urine Total Protein Digoxin Salicylates Acetaminophen 12/18/19 12/18/19 12/18/19 14:45 14:45 14:45 WBC Hgb Hct MCH MCHC RDW Lymph % (Auto) Simpson % (Auto) Eos % (Auto) Lymph # Simpson # Seg Neutrophils % Monocytes % (Manual) Monocytes # (Manual) D-Dimer 534.45 H ABG pH ABG pO2 ABG HCO3 ABG O2 Saturation ABG Base Excess ABG Hemoglobin Oxyhemoglobin Sodium 156 H Potassium Chloride 112.3 H Carbon Dioxide 31 H BUN 32 H Glucose 328 H POC Glucose Lactic Acid Calcium AST ALT Lactate Dehydrogenase 235 H Total Creatine Kinase C-Reactive Protein 8.50 H Albumin 3.6 L Urine WBC (Auto) Urine Total Protein Digoxin 0.3 L Salicylates < 0.3 L Acetaminophen 12/18/19 12/18/19 12/18/19 14:45 14:45 16:00 WBC Hgb Hct MCH MCHC RDW Lymph % (Auto) Simpson % (Auto) Eos % (Auto) Lymph # Simpson # Seg Neutrophils % Monocytes % (Manual) Monocytes # (Manual) D-Dimer ABG pH ABG pO2 69.8 L ABG HCO3 31.8 H ABG O2 Saturation ABG Base Excess 5.4 H ABG Hemoglobin 10.0 L Oxyhemoglobin 92.9 L Sodium Potassium Chloride Carbon Dioxide BUN Glucose 314 H POC Glucose Lactic Acid Calcium AST ALT Lactate Dehydrogenase 236 H Total Creatine Kinase C-Reactive Protein 8.40 H Albumin Urine WBC (Auto) Urine Total Protein Digoxin Salicylates Acetaminophen < 5.0 L 12/18/19 12/18/19 12/18/19 16:35 18:30 22:56 WBC Hgb Hct MCH MCHC RDW Lymph % (Auto) Simpson % (Auto) Eos % (Auto) Lymph # Simpson # Seg Neutrophils % Monocytes % (Manual) Monocytes # (Manual) D-Dimer ABG pH ABG pO2 ABG HCO3 ABG O2 Saturation ABG Base Excess ABG Hemoglobin Oxyhemoglobin Sodium Potassium Chloride Carbon Dioxide BUN Glucose POC Glucose 310 H 353 H Lactic Acid 2.50 H* Calcium AST ALT Lactate Dehydrogenase Total Creatine Kinase C-Reactive Protein Albumin Urine WBC (Auto) Urine Total Protein Digoxin Salicylates Acetaminophen 12/19/19 12/19/19 12/19/19 04:13 04:13 06:00 WBC Hgb 10.0 L Hct 34.2 L MCH 25 L MCHC 29 L RDW 19.0 H Lymph % (Auto) Simpson % (Auto) 10.1 H Eos % (Auto) Lymph # Simpson # 1.1 H Seg Neutrophils % 71.8 H Monocytes % (Manual) Monocytes # (Manual) D-Dimer ABG pH ABG pO2 186.5 H ABG HCO3 27.8 H ABG O2 Saturation 99.1 H ABG Base Excess ABG Hemoglobin 10.4 L Oxyhemoglobin Sodium 157 H Potassium Chloride 119.1 H Carbon Dioxide BUN 26 H Glucose 302 H POC Glucose Lactic Acid Calcium 7.9 L AST 85 H ALT 61 H Lactate Dehydrogenase Total Creatine Kinase C-Reactive Protein Albumin 3.0 L Urine WBC (Auto) Urine Total Protein Digoxin Salicylates Acetaminophen 12/19/19 12/19/19 12/19/19 08:30 11:55 16:50 WBC Hgb Hct MCH MCHC RDW Lymph % (Auto) Simpson % (Auto) Eos % (Auto) Lymph # Simpson # Seg Neutrophils % Monocytes % (Manual) Monocytes # (Manual) D-Dimer ABG pH ABG pO2 ABG HCO3 ABG O2 Saturation ABG Base Excess ABG Hemoglobin Oxyhemoglobin Sodium Potassium Chloride Carbon Dioxide BUN Glucose POC Glucose 264 H 251 H Lactic Acid Calcium AST ALT Lactate Dehydrogenase Total Creatine Kinase C-Reactive Protein Albumin Urine WBC (Auto) 7.0 H Urine Total Protein Digoxin Salicylates Acetaminophen 12/19/19 12/19/19 12/20/19 17:41 23:42 03:35 WBC Hgb Hct MCH MCHC RDW Lymph % (Auto) Simpson % (Auto) Eos % (Auto) Lymph # Simpson # Seg Neutrophils % Monocytes % (Manual) Monocytes # (Manual) D-Dimer ABG pH ABG pO2 ABG HCO3 27.7 H ABG O2 Saturation ABG Base Excess ABG Hemoglobin 11.6 L Oxyhemoglobin 94.9 L Sodium Potassium Chloride Carbon Dioxide BUN Glucose POC Glucose 180 H 205 H Lactic Acid Calcium AST ALT Lactate Dehydrogenase Total Creatine Kinase C-Reactive Protein Albumin Urine WBC (Auto) Urine Total Protein Digoxin Salicylates Acetaminophen 12/20/19 12/20/19 12/20/19 04:45 04:45 05:27 WBC Hgb 9.4 L Hct 31.4 L MCH 25 L MCHC 30 L RDW 19.4 H Lymph % (Auto) Simpson % (Auto) 10.2 H Eos % (Auto) 6.0 H Lymph # 0.9 L Simpson # Seg Neutrophils % Monocytes % (Manual) Monocytes # (Manual) D-Dimer ABG pH ABG pO2 ABG HCO3 ABG O2 Saturation ABG Base Excess ABG Hemoglobin Oxyhemoglobin Sodium 153 H Potassium Chloride 114.6 H Carbon Dioxide BUN Glucose 170 H POC Glucose 188 H Lactic Acid Calcium 7.9 L AST ALT Lactate Dehydrogenase Total Creatine Kinase C-Reactive Protein Albumin Urine WBC (Auto) Urine Total Protein Digoxin Salicylates Acetaminophen 12/20/19 12/20/19 12/21/19 12:26 18:20 00:20 WBC Hgb Hct MCH MCHC RDW Lymph % (Auto) Simpson % (Auto) Eos % (Auto) Lymph # Simpson # Seg Neutrophils % Monocytes % (Manual) Monocytes # (Manual) D-Dimer ABG pH ABG pO2 ABG HCO3 ABG O2 Saturation ABG Base Excess ABG Hemoglobin Oxyhemoglobin Sodium Potassium Chloride Carbon Dioxide BUN Glucose POC Glucose 200 H 263 H 218 H Lactic Acid Calcium AST ALT Lactate Dehydrogenase Total Creatine Kinase C-Reactive Protein Albumin Urine WBC (Auto) Urine Total Protein Digoxin Salicylates Acetaminophen 12/21/19 12/21/19 12/21/19 04:38 05:26 12:35 WBC Hgb Hct MCH MCHC RDW Lymph % (Auto) Simpson % (Auto) Eos % (Auto) Lymph # Simpson # Seg Neutrophils % Monocytes % (Manual) Monocytes # (Manual) D-Dimer ABG pH ABG pO2 ABG HCO3 ABG O2 Saturation ABG Base Excess ABG Hemoglobin Oxyhemoglobin Sodium 149 H Potassium 3.5 L Chloride 110.5 H Carbon Dioxide BUN Glucose 158 H POC Glucose 193 H 193 H Lactic Acid Calcium AST ALT Lactate Dehydrogenase Total Creatine Kinase C-Reactive Protein Albumin Urine WBC (Auto) Urine Total Protein Digoxin Salicylates Acetaminophen 12/21/19 12/22/19 12/22/19 18:29 00:03 05:15 WBC Hgb 10.3 L Hct 34.7 L MCH 25 L MCHC 30 L RDW 19.4 H Lymph % (Auto) 9.0 L Simpson % (Auto) 12.3 H Eos % (Auto) 5.0 H Lymph # 0.5 L Simpson # Seg Neutrophils % 73.2 H Monocytes % (Manual) Monocytes # (Manual) D-Dimer ABG pH ABG pO2 ABG HCO3 ABG O2 Saturation ABG Base Excess ABG Hemoglobin Oxyhemoglobin Sodium Potassium Chloride Carbon Dioxide BUN Glucose POC Glucose 186 H 143 H Lactic Acid Calcium AST ALT Lactate Dehydrogenase Total Creatine Kinase C-Reactive Protein Albumin Urine WBC (Auto) Urine Total Protein Digoxin Salicylates Acetaminophen 12/22/19 12/22/19 12/22/19 05:15 06:02 12:13 WBC Hgb Hct MCH MCHC RDW Lymph % (Auto) Simpson % (Auto) Eos % (Auto) Lymph # Simpson # Seg Neutrophils % Monocytes % (Manual) Monocytes # (Manual) D-Dimer ABG pH ABG pO2 ABG HCO3 ABG O2 Saturation ABG Base Excess ABG Hemoglobin Oxyhemoglobin Sodium 152 H Potassium Chloride 113.5 H Carbon Dioxide BUN Glucose 126 H POC Glucose 144 H 159 H Lactic Acid Calcium AST ALT Lactate Dehydrogenase Total Creatine Kinase C-Reactive Protein Albumin Urine WBC (Auto) Urine Total Protein Digoxin Salicylates Acetaminophen 12/22/19 12/22/19 12/23/19 18:03 23:50 05:27 WBC Hgb Hct MCH MCHC RDW Lymph % (Auto) Simpson % (Auto) Eos % (Auto) Lymph # Simpson # Seg Neutrophils % Monocytes % (Manual) Monocytes # (Manual) D-Dimer ABG pH ABG pO2 ABG HCO3 ABG O2 Saturation ABG Base Excess ABG Hemoglobin Oxyhemoglobin Sodium Potassium Chloride Carbon Dioxide BUN Glucose POC Glucose 140 H 227 H 185 H Lactic Acid Calcium AST ALT Lactate Dehydrogenase Total Creatine Kinase C-Reactive Protein Albumin Urine WBC (Auto) Urine Total Protein Digoxin Salicylates Acetaminophen 12/23/19 12/23/19 12/23/19 12:13 16:05 16:40 WBC Hgb Hct MCH MCHC RDW Lymph % (Auto) Simpson % (Auto) Eos % (Auto) Lymph # Simpson # Seg Neutrophils % Monocytes % (Manual) Monocytes # (Manual) D-Dimer ABG pH 7.259 L ABG pO2 76.2 L ABG HCO3 30.6 H ABG O2 Saturation 94.6 L ABG Base Excess ABG Hemoglobin 11.5 L Oxyhemoglobin 92.2 L Sodium 163 H* D Potassium 3.4 L Chloride 120.1 H Carbon Dioxide BUN Glucose 162 H POC Glucose 132 H Lactic Acid Calcium AST ALT Lactate Dehydrogenase Total Creatine Kinase C-Reactive Protein Albumin Urine WBC (Auto) Urine Total Protein Digoxin Salicylates Acetaminophen 12/23/19 12/24/19 12/24/19 17:53 00:48 04:20 WBC Hgb Hct MCH MCHC RDW Lymph % (Auto) Simpson % (Auto) Eos % (Auto) Lymph # Simpson # Seg Neutrophils % Monocytes % (Manual) Monocytes # (Manual) D-Dimer ABG pH ABG pO2 ABG HCO3 30.4 H ABG O2 Saturation ABG Base Excess 3.9 H ABG Hemoglobin 10.3 L Oxyhemoglobin 94.4 L Sodium Potassium Chloride Carbon Dioxide BUN Glucose POC Glucose 180 H 174 H Lactic Acid Calcium AST ALT Lactate Dehydrogenase Total Creatine Kinase C-Reactive Protein Albumin Urine WBC (Auto) Urine Total Protein Digoxin Salicylates Acetaminophen 12/24/19 12/24/19 12/24/19 04:53 04:53 11:50 WBC Hgb 9.7 L Hct 33.2 L MCH 25 L MCHC 29 L RDW 20.1 H Lymph % (Auto) Simpson % (Auto) Eos % (Auto) Lymph # Simpson # Seg Neutrophils % Monocytes % (Manual) 15.0 H Monocytes # (Manual) 0.9 H D-Dimer ABG pH ABG pO2 ABG HCO3 ABG O2 Saturation ABG Base Excess ABG Hemoglobin Oxyhemoglobin Sodium 163 H* Potassium 3.2 L Chloride 122.6 H Carbon Dioxide BUN Glucose 168 H POC Glucose 190 H Lactic Acid Calcium AST ALT Lactate Dehydrogenase Total Creatine Kinase C-Reactive Protein Albumin Urine WBC (Auto) Urine Total Protein Digoxin Salicylates Acetaminophen 12/24/19 12/24/19 12/24/19 15:00 16:28 21:15 WBC Hgb Hct MCH MCHC RDW Lymph % (Auto) Simpson % (Auto) Eos % (Auto) Lymph # Simpson # Seg Neutrophils % Monocytes % (Manual) Monocytes # (Manual) D-Dimer ABG pH ABG pO2 ABG HCO3 ABG O2 Saturation ABG Base Excess ABG Hemoglobin Oxyhemoglobin Sodium 165 H* D 163 H* Potassium Chloride Carbon Dioxide BUN Glucose POC Glucose 160 H Lactic Acid Calcium AST ALT Lactate Dehydrogenase Total Creatine Kinase C-Reactive Protein Albumin Urine WBC (Auto) Urine Total Protein Digoxin Salicylates Acetaminophen 12/25/19 12/25/19 12/25/19 00:31 05:38 05:46 WBC Hgb 9.7 L Hct 32.5 L MCH 25 L MCHC 30 L RDW 19.4 H Lymph % (Auto) Simpson % (Auto) Eos % (Auto) Lymph # Simpson # Seg Neutrophils % Monocytes % (Manual) Monocytes # (Manual) D-Dimer ABG pH ABG pO2 ABG HCO3 ABG O2 Saturation ABG Base Excess ABG Hemoglobin Oxyhemoglobin Sodium Potassium Chloride Carbon Dioxide BUN Glucose POC Glucose 182 H 194 H Lactic Acid Calcium AST ALT Lactate Dehydrogenase Total Creatine Kinase C-Reactive Protein Albumin Urine WBC (Auto) Urine Total Protein Digoxin Salicylates Acetaminophen 12/25/19 12/25/19 12/25/19 05:46 11:35 11:38 WBC Hgb Hct MCH MCHC RDW Lymph % (Auto) Simpson % (Auto) Eos % (Auto) Lymph # Simpson # Seg Neutrophils % Monocytes % (Manual) Monocytes # (Manual) D-Dimer ABG pH 7.330 L ABG pO2 65.7 L ABG HCO3 32.6 H ABG O2 Saturation 92.5 L ABG Base Excess 5.3 H ABG Hemoglobin 10.4 L Oxyhemoglobin 90.0 L Sodium 166 H* Potassium 2.9 L* Chloride 124.5 H Carbon Dioxide BUN Glucose 190 H POC Glucose 192 H Lactic Acid Calcium AST ALT Lactate Dehydrogenase Total Creatine Kinase C-Reactive Protein Albumin Urine WBC (Auto) Urine Total Protein Digoxin Salicylates Acetaminophen 12/25/19 12/25/19 12/25/19 13:01 16:45 17:20 WBC Hgb Hct MCH MCHC RDW Lymph % (Auto) Simpson % (Auto) Eos % (Auto) Lymph # Simpson # Seg Neutrophils % Monocytes % (Manual) Monocytes # (Manual) D-Dimer ABG pH 7.296 L ABG pO2 101.5 H ABG HCO3 33.2 H ABG O2 Saturation ABG Base Excess 5.3 H ABG Hemoglobin 9.6 L Oxyhemoglobin 94.6 L Sodium 174 H* Potassium Chloride Carbon Dioxide BUN Glucose POC Glucose Lactic Acid Calcium AST ALT Lactate Dehydrogenase Total Creatine Kinase C-Reactive Protein Albumin Urine WBC (Auto) Urine Total Protein < 4 L Digoxin Salicylates Acetaminophen 12/25/19 12/25/19 12/26/19 17:48 18:50 00:43 WBC Hgb Hct MCH MCHC RDW Lymph % (Auto) Simpson % (Auto) Eos % (Auto) Lymph # Simpson # Seg Neutrophils % Monocytes % (Manual) Monocytes # (Manual) D-Dimer ABG pH ABG pO2 ABG HCO3 ABG O2 Saturation ABG Base Excess ABG Hemoglobin Oxyhemoglobin Sodium 166 H* 164 H* Potassium Chloride 127.3 H Carbon Dioxide BUN Glucose 220 H POC Glucose 252 H Lactic Acid Calcium AST ALT Lactate Dehydrogenase Total Creatine Kinase C-Reactive Protein Albumin Urine WBC (Auto) Urine Total Protein Digoxin Salicylates Acetaminophen 12/26/19 12/26/19 12/26/19 05:31 08:07 08:07 WBC 4.3 L Hgb 9.6 L Hct 32.1 L MCH 26 L MCHC 30 L RDW 20.5 H Lymph % (Auto) Simpson % (Auto) Eos % (Auto) Lymph # Simpson # Seg Neutrophils % Monocytes % (Manual) Monocytes # (Manual) D-Dimer ABG pH ABG pO2 ABG HCO3 ABG O2 Saturation ABG Base Excess ABG Hemoglobin Oxyhemoglobin Sodium 162 H* Potassium Chloride 122.1 H Carbon Dioxide BUN Glucose 247 H POC Glucose 187 H Lactic Acid Calcium AST ALT Lactate Dehydrogenase Total Creatine Kinase C-Reactive Protein Albumin Urine WBC (Auto) Urine Total Protein Digoxin Salicylates Acetaminophen 12/26/19 12/26/19 12/26/19 08:07 12:20 16:25 WBC Hgb Hct MCH MCHC RDW Lymph % (Auto) Simpson % (Auto) Eos % (Auto) Lymph # Simpson # Seg Neutrophils % Monocytes % (Manual) Monocytes # (Manual) D-Dimer ABG pH 7.290 L ABG pO2 73.2 L ABG HCO3 33.2 H ABG O2 Saturation 94.9 L ABG Base Excess 5.2 H ABG Hemoglobin 10.0 L Oxyhemoglobin 92.5 L Sodium 159 H Potassium Chloride Carbon Dioxide BUN Glucose POC Glucose 234 H Lactic Acid Calcium AST ALT Lactate Dehydrogenase Total Creatine Kinase C-Reactive Protein Albumin Urine WBC (Auto) Urine Total Protein Digoxin Salicylates Acetaminophen 12/26/19 12/26/19 12/26/19 17:33 22:35 23:30 WBC Hgb Hct MCH MCHC RDW Lymph % (Auto) Simpson % (Auto) Eos % (Auto) Lymph # Simpson # Seg Neutrophils % Monocytes % (Manual) Monocytes # (Manual) D-Dimer ABG pH ABG pO2 ABG HCO3 ABG O2 Saturation ABG Base Excess ABG Hemoglobin Oxyhemoglobin Sodium Potassium Chloride Carbon Dioxide BUN Glucose POC Glucose 244 H 208 H 287 H Lactic Acid Calcium AST ALT Lactate Dehydrogenase Total Creatine Kinase C-Reactive Protein Albumin Urine WBC (Auto) Urine Total Protein Digoxin Salicylates Acetaminophen 12/27/19 12/27/19 12/27/19 03:48 03:48 05:50 WBC Hgb 10.1 L Hct 35.4 L MCH 25 L MCHC 29 L RDW 20.1 H Lymph % (Auto) Simpson % (Auto) Eos % (Auto) Lymph # Simpson # Seg Neutrophils % Monocytes % (Manual) Monocytes # (Manual) D-Dimer ABG pH ABG pO2 ABG HCO3 ABG O2 Saturation ABG Base Excess ABG Hemoglobin Oxyhemoglobin Sodium 160 H Potassium Chloride 118.8 H Carbon Dioxide 33 H BUN Glucose 217 H POC Glucose 224 H Lactic Acid Calcium AST ALT Lactate Dehydrogenase Total Creatine Kinase C-Reactive Protein Albumin Urine WBC (Auto) Urine Total Protein Digoxin Salicylates Acetaminophen Chest x-ray: image reviewed (left pleural effusion) Allied health notes reviewed: RT
[2019-12-27 16:16] LABS: ABG Base Excess 3.8 mmol/L (-2.0-3.0); ABG HCO3 34.8 mmol/L (20.0-26.0); ABG Methemoglobin 0.8 % (0.0-1.5); ABG Oxygen Saturation 92.7 % (95.0-99.0); ABG PCO2 95.5 mm Hg; ABG PO2 73.6 mm Hg (80.0-90.0)
[2019-12-27 16:29] LABS: ABG PH 7.18 pH Units (7.350-7.450)
[2019-12-27] MEDS ORDERED: fentaNYL 100 MCG/2 ML INJ IV STA (17:23)
[2019-12-27] MEDS ORDERED: MIDAZOLAM 2 MG/2 ML INJ IV STA (17:28)
[2019-12-27] MEDS: fentaNYL DRIP Premix 2,000 MCG/100 ML BAG IV SCH (17:45)
[2019-12-27 18:16] LABS: ABG Base Excess 5.7 mmol/L (-2.0-3.0); ABG HCO3 33.3 mmol/L (20.0-26.0); ABG Methemoglobin 0.7 % (0.0-1.5); ABG Oxygen Saturation 87.1 % (95.0-99.0); ABG PH 7.328 pH Units (7.350-7.450); ABG PO2 49.9 mm Hg (80.0-90.0)
[2019-12-27] MEDS ORDERED: DOPamine/D5W 800 MG/250 ML 800 MG/250 ML BAG IV SCH (19:00)
--- NOTE | 2019-12-27 19:03 | XRay Report ---
CHEST 1 VIEW INDICATION: ETT placement COMPARISON: 12/25/2019 FINDINGS: SUPPORT DEVICES: Endotracheal tubes in good position. Nasogastric tube has tip below diaphragm. HEART / MEDIASTINUM: No significant abnormality. LUNGS / PLEURA: Again identified is diffuse interstitial pulmonary process with moderate-sized bilate ral pleural effusions No pneumothorax. ADDITIONAL FINDINGS: IMPRESSION: 1. Increased bilateral pleural effusions as compared to previous exam Signer Name: Jose Francisco Amezcua MD Signed: 12/27/2019 6:58 PM Workstation Name: [id number]
[2019-12-27] MEDS ORDERED: SODIUM CHLORIDE 0.9% 500 ML 500 ML IV ONE (19:48)
[2019-12-27] MEDS: INSULIN GLARGINE 100 UNITS/ML SUB-Q SCH (21:39)
--- NOTE | 2019-12-27 22:40 | Ultrasound Report ---
US chest INDICATION / CLINICAL INFORMATION: bilateral pleural effusions. COMPARISON: Chest radiograph from today at 6:47 PM, CT scan of the chest from 12/18/2019 FINDINGS: Images acquired of the posterior lung bases demonstrate moderately echogenic lung parenchyma. No anec hoic pocket of fluid is identified. IMPRESSION: 1. No sonographic evidence of pleural effusion is shown. Signer Name: Alvaro Munoz MD Signed: 12/27/2019 10:36 PM Workstation Name: [id number]
[2019-12-27] MEDS: DEXTROSE 5% IN WATER 1,000 ML IV SCH (23:12)
[2019-12-28] MEDS ORDERED: SODIUM CHLORIDE 0.9% 250ML 250 ML IV ONE (00:10)
[2019-12-28] MEDS: INSULIN LISPRO 100 UNIT/ML SUB-Q SCH ×5 (00:31→23:28)
[2019-12-28] MEDS: fentaNYL DRIP Premix 2,000 MCG/100 ML BAG IV SCH ×3 (04:55→21:06)
[2019-12-28] MEDS: LEVOTHYROXINE 88 MCG TAB PO SCH ×2 (04:56→10:12)
[2019-12-28 05:26] LABS: Mean Corpuscular HGB Conc 29 % (32-34); Mean Corpuscular Volume 86 fl (84-94); Platelet Count 149 K/mm3 (140-440); Red Blood Count 3.88 M/mm3 (3.65-5.03)
[2019-12-28 05:27] LABS: ABG Base Excess 4.1 mmol/L (-2.0-3.0); ABG HCO3 28.7 mmol/L (20.0-26.0); ABG Methemoglobin 0.7 % (0.0-1.5); ABG Oxygen Saturation 89.9 % (95.0-99.0); ABG PCO2 43.5 mm Hg; ABG PH 7.437 pH Units (7.350-7.450); ABG PO2 51.7 mm Hg (80.0-90.0)
[2019-12-28 05:33] LABS: Hemoglobin 9.8 gm/dl (11.8-15.2)
[2019-12-28 05:34] LABS: Hematocrit 33.5 % (35.5-45.6); Red Cell Distribution Width 21.1 % (13.2-15.2)
[2019-12-28 05:53] LABS: BUN/Creatinine Ratio 10; Blood Urea Nitrogen 14 mg/dL (9-20); Hemolysis Index 60
--- NOTE | 2019-12-28 05:58 | Event Note ---
Date: 12/28/19 I was asked to evaluate this patient for vascular access for pressors. At the time of my examination the patient had a blood pressure of 70/40 and they were about to start dopamine. A right tibial intraosseous line was placed. The area was cleaned with a chlorhexidine solution. The IO gun was used. After the intraosseous needle was placed in the proximal tibia, it was flushed with sterile saline. There was good drawback of blood and marrow and it flushed easily. There were no obvious complications from this procedure.
[2019-12-28] MEDS: IPRATROPIUM/ALBUTEROL SULFATE 3 ML AMPUL.NEB IH SCH ×3 (09:52→20:29)
[2019-12-28] MEDS ORDERED: SODIUM BICARBONATE 325 MG TAB FEEDTUBE PRN (10:09)
[2019-12-28] MEDS ORDERED: LIPASE 10,500/PROTEASE 25,000/AMYLASE 43,750 (UNITS) DR CAP FEEDTUBE PRN (10:09)
[2019-12-28] MEDS ORDERED: SIMPLE SYRUP 15 ML FEEDTUBE PRN ×2 (10:09)
--- NOTE | 2019-12-28 10:15 | Progress Note ---
Assessment and Plan - Patient Problems (1) Acute kidney injury Current Visit: Yes Status: Acute Plan to address problem: Overall renal function is stable and improved since initial admission. Will monitor closely. (2) Acute respiratory failure Current Visit: Yes Status: Acute Qualifiers: Plan to address problem: Now re-intubated. Chest xray reviewed. Management on vent per Pulmonary/ICU. (3) Hypernatremia Current Visit: Yes Status: Acute Plan to address problem: Serum sodium levels are showing steady improvement. Continue on current FWF, but will decrease his continuous IVF rate based on chest xray. (4) Diastolic CHF Current Visit: Yes Status: Acute Qualifiers: Heart failure chronicity: acute on chronic Qualified Code(s): I50.33 - Acute on chronic diastolic (congestive) heart failure Plan to address problem: Chest Xray is concerning for volume overload. I would recommend that we decrease standing IVF to 50 cc/hr, and increase her FWF as necessary to meet goal free water replacement. (5) Hypokalemia Current Visit: Yes Status: Acute Plan to address problem: replete per protocol. (6) Pneumonia Current Visit: No Status: Acute Qualifiers: Pneumonia type: due to unspecified organism Laterality: left Lung location: unspecified part of lung Qualified Code(s): J18.9 - Pneumonia, unspecified organism Plan to address problem: Management per primary/ICU team. Subjective Date of service: 12/28/19 Principal diagnosis: Ac. Hypoxemic Resp Failure; Septic Shock; Magdiel. PNA; PUI COVID-19; CHF; JOE Interval history: Patient now reintuabted, in the ICU. Hemodynamically worsening over noght, now on dopamine. IVF continuing with D5W at 100 cc/hr. Chest xray noted for worsening effusions. Also FWF increased to 250cc q4hrs. Hypernatremia is showing slow improvement this am. Objective - Vital Signs Vital signs: Vital Signs - 12hr 12/27/19 12/27/19 12/27/19 23:00 23:37 23:40 Temperature Pulse Rate 92 H 87 Pulse Rate [ Bilateral] Respiratory 25 H 26 H Rate Respiratory Rate [Bilateral ] Respiratory 17 Rate [pt denies ] Blood Pressure 88/53 90/51 O2 Sat by Pulse 94 95 Oximetry 12/28/19 12/28/19 12/28/19 00:00 01:00 02:00 Temperature 98.9 F Pulse Rate 80 87 83 Pulse Rate [ Bilateral] Respiratory 26 H 26 H 26 H Rate Respiratory Rate [Bilateral ] Respiratory Rate [pt denies ] Blood Pressure 96/54 89/52 77/40 O2 Sat by Pulse 96 96 94 Oximetry 12/28/19 12/28/19 12/28/19 03:00 03:50 04:00 Temperature 98.1 F Pulse Rate 85 80 Pulse Rate [ Bilateral] Respiratory 26 H 26 H Rate Respiratory Rate [Bilateral ] Respiratory Rate [pt denies ] Blood Pressure 90/48 122/50 O2 Sat by Pulse 95 94 92 Oximetry 12/28/19 12/28/19 12/28/19 05:00 06:00 08:00 Temperature 98.4 F Pulse Rate 80 78 Pulse Rate [ Bilateral] Respiratory 26 H 26 H Rate Respiratory Rate [Bilateral ] Respiratory Rate [pt denies ] Blood Pressure 122/50 110/44 O2 Sat by Pulse 90 92 Oximetry 12/28/19 12/28/19 09:29 09:57 Temperature Pulse Rate 91 H Pulse Rate [ 92 H Bilateral] Respiratory Rate Respiratory 26 H Rate [Bilateral ] Respiratory Rate [pt denies ] Blood Pressure 101/46 O2 Sat by Pulse 90 Oximetry - General Appearance General appearance: chronically ill, intubated EENT: ATNC Neck: no thyromegaly Respiratory: Present: Decreased Breath Sounds Cardiology: regular, S1S2 Gastrointestinal: normal Integumentary: no rash Neurologic: other (sedated, intubated ) Musculoskeletal: deferred - Lab 12/28/19 04:37 12/28/19 04:37 Most recent lab results ABG pH 7.437 pH Units (7.350-7.450) 12/28/19 05:19 ABG pCO2 43.5 mm Hg 12/28/19 05:19 ABG pO2 51.7 mm Hg (80.0-90.0) L 12/28/19 05:19 ABG HCO3 28.7 mmol/L (20.0-26.0) H 12/28/19 05:19 ABG O2 Saturation 89.9 % (95.0-99.0) L 12/28/19 05:19 Calcium 9.0 mg/dL (8.4-10.2) 12/28/19 04:37 Phosphorus 3.70 mg/dL (2.5-4.5) 12/27/19 03:48 Magnesium 2.70 mg/dL (1.7-2.3) H 12/27/19 03:48 Urine Creatinine < 4.2 mg/dL (0.1-20.0) 12/25/19 16:45 Urine Sodium 10 mmol/L 12/25/19 16:45 Urine Total Protein < 4 mg/dL (5-11.8) L 12/25/19 16:45 - Allied health notes Allied health notes reviewed: nursing Medications & Allergies - Medications Allergies/Adverse Reactions: Allergies No Known Allergies Allergy (Unverified 12/19/19 01:31) Home Medications: Home Medications Medication Instructions Recorded Confirmed Last Taken Type Ipratropium/Albuterol Sulfate 1 ampul IH TIDRT #90 ampul.neb 06/02/19 Unknown Rx [DUONEB *Not for PRN Use*] Aspirin [Aspirin BABY CHEW TAB] 81 mg PO DAILY 06/03/19 06/03/19 3 Days Ago History ~05/31/19 Desmopressin [Ddavp] 0.2 mg PO BID 06/03/19 06/03/19 3 Days Ago History ~05/31/19 Digoxin [Lanoxin] 0.125 mg PO DAILY 06/03/19 06/03/19 3 Days Ago History ~05/31/19 Folic Acid 100 mg PO DAILY 06/03/19 06/03/19 3 Days Ago History ~05/31/19 Furosemide [Lasix TAB] 40 mg PO QDAY 06/03/19 06/03/19 3 Days Ago History ~05/31/19 Insulin Lispro [Humalog 100 4 units SQ AC 06/03/19 06/03/19 3 Days Ago History UNITS/ML Kwikpen] ~05/31/19 Levothyroxine [Synthroid] 88 mcg PO QAM 06/03/19 06/03/19 3 Days Ago History ~05/31/19 Metformin HCl [metFORMIN] 1,000 mg PO BID 06/03/19 06/03/19 3 Days Ago History ~05/31/19 Potassium Chloride [K-Dur] 20 meq PO QDAY 06/03/19 06/03/19 3 Days Ago History ~05/31/19 carvediloL [Coreg] 6.25 mg PO BID 06/03/19 06/03/19 3 Days Ago History ~05/31/19 Famotidine [Pepcid] 20 mg PO QDAY #30 tablet 06/06/19 Unknown Rx Insulin NPH/Regular [NovoLIN 70/30] 50 unit SUB-Q BIDDIAB #100 units 06/06/19 Unknown Rx Active Medications: Generic Name Dose Route Start Last Admin Trade Name Freq PRN Reason Stop Dose Admin Albuterol/Ipratropium 1 ampul 12/18/19 14:00 12/28/19 09:52 Duoneb *Not For Prn Use* IH 1 ampul TIDRT SHANEL Administration Lipase/Protease/Amylase 1 each 12/19/19 08:29 Pancreaze 10,500 Unit FEEDTUBE PRN PRN For Clogged Feeding Tube Aspirin 81 mg 12/19/19 10:00 12/27/19 10:23 Baby Aspirin PO 81 mg DAILY SHANEL Administration Famotidine 20 mg 12/20/19 10:00 12/27/19 21:37 Pepcid PO 20 mg BID SHANEL Administration Fentanyl 50 mcg 12/27/19 16:57 Sublimaze IV Q10MIN PRN ANALGESIA Folic Acid 1 mg 12/19/19 10:00 12/27/19 10:23 Folvite PO 1 mg DAILY SHANEL Administration Heparin Sodium (Porcine) 5,000 unit 12/18/19 22:00 12/27/19 21:37 Heparin SUB-Q 5,000 unit Q12HR SHANEL Administration Hydrophilic Ointment 1 applic 12/18/19 12:35 Vaseline Lip Therapy TP Q2HR PRN Dry Lips Dextrose 1,000 mls @ 100 mls/hr 12/27/19 14:00 12/27/19 23:12 D5w IV 12/29/19 23:59 100 mls/hr DIRECT SHANEL Administration Fentanyl Citrate 2,000 mcg in 100 mls @ 5.85 mls/hr 12/27/19 17:00 12/28/19 04:55 Fentanyl Drip Premix IV 1.5 mcg/kg/hr TITR SHANEL 8.775 mls/hr Administration Protocol 1 MCG/KG/HR Dopamine HCl/Dextrose 800 mg in 250 mls @ 4.388 mls/hr 12/27/19 19:00 12/28/19 08:00 Intropin Drip 800 Mg/D5w 250 Ml IV 10 mcg/kg/min TITR SHANEL 21.938 mls/hr Titration Protocol 2 MCG/KG/MIN Insulin Glargine 10 units 12/27/19 22:00 12/27/19 21:39 Lantus SUB-Q 10 units QHS SHANEL Administration Insulin Human Lispro 0 unit 12/20/19 00:00 12/28/19 04:55 Humalog SUB-Q 4 unit Q6HR SHANEL Administration Protocol Levothyroxine Sodium 88 mcg 12/19/19 06:00 12/28/19 04:56 Synthroid PO 88 mcg QAM@0600 SHANEL Administration Multi-Ingred Cream/Lotion/Oil/Oint 1 applic 12/18/19 12:35 Artificial Tears Ophth Oint OU Q4HR PRN Dry Eye(s) Potassium Chloride 20 meq 12/19/19 10:00 12/27/19 10:23 Potassium Chloride FEEDTUBE 20 meq QDAY SHANEL Administration Simple Syrup 15 ml 12/19/19 08:29 Simple Syrup FEEDTUBE PRN PRN Hypoglycemia Simple Syrup 30 ml 12/19/19 08:29 Simple Syrup FEEDTUBE PRN PRN Hypoglycemia Sodium Bicarbonate 325 mg 12/19/19 08:29 Sodium Bicarbonate FEEDTUBE PRN PRN For Clogged Feeding Tube Sodium Chloride 10 ml 12/18/19 22:00 12/27/19 21:37 Sodium Chloride Flush Syringe 10 Ml IV 10 ml BID SHANEL Administration Sodium Chloride 10 ml 12/18/19 13:31 Sodium Chloride Flush Syringe 10 Ml IV PRN PRN LINE FLUSH
[2019-12-28] MEDS: DEXTROSE 5% IN WATER 1,000 ML IV SCH (10:25)
[2019-12-28] MEDS: ASPIRIN 81 MG TAB CHEW PO SCH (10:26)
[2019-12-28] MEDS: POTASSIUM CHLORIDE 20 MEQ PACKET FEEDTUBE SCH (10:26)
[2019-12-28] MEDS: FAMOTIDINE 20 MG TAB PO SCH ×2 (10:26→21:10)
[2019-12-28] MEDS: FOLIC ACID 1 MG TAB PO SCH (10:26)
[2019-12-28] MEDS: HEPARIN 5,000 UNIT/1 ML VIAL SUB-Q SCH ×2 (10:26→21:06)
--- NOTE | 2019-12-28 10:50 | Progress Note ---
Assessment and Plan Assessment and plan: 59-year-old male past medical history diastolic CHF, OHS, HTN, DM 2, hypothyroidism admitted with confusion after being found by a neighbor. On arrival patient was found to be lethargic, and in respiratory distress and hypoxic. Patient was intubated in the ER because of hypoxic respiratory failure. Also noted to be hypotensive, placed on pressor admitted to ICU. Patient is negative for COVID-19, being treated for bilateral pneumonia. JAGDEEP improved with IV fluid, ID and critical care following. Chest x-ray: Left lower lobe airspace disease CT chest: 1. Patchy bilateral nodular and consolidative airspace opacities which are nonspecific but likely related to the reported history of Covid. 2. Multiple enlarged partially visualized left supraclavicular and lower cervical chain lymph nodes. While these are nonspecific and may be reactive, a neoplastic process is possible, recommend short interval follow-up after patient recovers from the acute episode. / Acute hypoxic respiratory failure Likely from bilateral pneumonia and diastolic heart failure Patient intubated, placed on ventilatory support. critical care team consulted in ED. Patient is extubated, continue nebulizer breathing treatment and as needed biPAP We will also do a swallow eval / Sepsis with shock cont IV antibiotic therapy, IV fluid resuscitation therapy, monitor urine output every shift, maintain mean arterial blood pressure greater than or equal to 65, s/p IV pressor support. / Suspected 2019-nCoV infection -ruled out with 2 negative test / Diastolic CHF Preserved EF based on prior echocardiogram Monitor weight strict I's/O, daily weight, monitor urine output every shift, submental oxygen, blood pressure control. /JAGDEEP, due to vasomotor nephropathy, present on admission -Creatinine improving, continue IV fluid -Likely due to severe sepsis and hypotension /hypernatremia, -due to dehydration and sepsis -change fluid to D5W - monitor BMP /Hypokalemia, replete / Diabetes type II Initiate tube feeding diet Sliding scale insulin, Accu-Chek, hypoglycemia protocol. / Hypothyroidism Synthroid therapy, supportive care. / Bilateral pneumonia Pneumonia protocol: IV antibiotic therapy with rocephin for total 7 days, pulse oximetry, /Cervical lymphadenopathy -Reactive versus infectious process versus malignancy -Need repeat scanning and further staging when medically more stable -Pulmonology and ID following / HTN (hypertension) -hold BP meds as patient is hypotensive Monitor blood pressure every shift, continue medical management. /History of obstructive sleep apnea -Patient currently on mechanical ventilation /Acute metabolic encephalopathy Secondary to hyponatremia. /Urinary retention, suspected in the ER -Patient having good urine output now, will hold any CT scan -Continue IV fluid / DVT prophylaxis SCD to bilateral lower extremities while in bed, prophylactic heparin 12/19/19: Negative for COVID-19, continue pressor and wean off as tolerated, con tinue IV antibiotic and follow cultures. 12/19: Weaned off from pressor, sodium 156>157>153 today, creatinine 1.4>1.2>1.0. Continue IV fluid. Wean off from vent as tolerated. Follow ID recommendation 12/20: Extubated today, continue to monitor in the ICU overnight if clinically stable with transfer out to [facility]/telemetry tomorrow a.m.. Sodium 149 today, continue IV fluid and monitor BMP. Swallow eval, PT OT eval. 2nd text for covid is negative 12/21: transfer to [facility], start on gentle hydration. mechanical soft diet 12/22: placed back on bipap, Na 163 - start on D5W, monitor bmp 12/23: spoke to sister, updated [id number], also discussed Pulmonary, will likely need LTAC. Obtain Nephrology due to persistent Hypernatremia. Will start on free water and continue to monitor. Remains of restriants for safety due to intermittent confusion. 12/24: Still with intermittent encephalopathy. Requiring restraints. Hypernatremia still persist continue hypotonic solution. Nephrology consulted. Free water started this morning will increase dose. Replace potassium as hypokalemia still persist 12/26/19: Clinically improving, BIPAP now PRN AND HS, Na improving, continue renal follow up. I have called [facility] in case they would like to transfer the patient tested previously requested. 12/26: Hypernatermia still persist, had pulled out NGT yesterday, Continue free water, Continue Bipap, [place] states he is not yet stable for transfer. Although from our critical care team this patient has been cleared for to be able to transfer. 12/27: Patient reintubated due to hypoxia. Continue current management as outlined by wheel alignment technician. Sodium is improving. Continue current management monitor ABG and intermittent chest x-ray. [facility] updated. Patient sister also updated. The high probability of a clinically significant, sudden or life threatening deterioration of the [renal, pulmonary] system(s) required my full and direct attention, intervention and personal management. The aggregate critical care time was [35] minutes. This time is in addition to time spent performing reported procedures but includes the following: [x] Data Review and interpretation [x] Patient assessment and monitoring of vital signs [x] Documentation [x] Medication orders and management History Interval history: Patient seen and examined, Became hypoxic and required Hospitalist Physical - Physical exam Narrative exam: GENERAL: well-developed obese white male lying on bed on restriants due to confusion and pulling. ETT HEENT: Normocephalic. Atraumatic. No conjunctival congestion or icterus. Patient has moist mucous membranes. ETT NECK: Supple. Trachea midline. CHEST/LUNGS: Coarse breath sound auscultated bilaterally, HEART/CARDIOVASCULAR: Regular in rate and rhythm. S1 and S2 positive. ABDOMEN: Abdomen is soft, nontender. Patient has normal bowel sounds. SKIN: There is no rash. Warm and dry. NEURO: follows some command, AMS, no focal deficits MUSCULOSKELETAL: No joint effusion or tenderness. EXTRIMITY: No edema, no cyanosis or clubbing. PSYCH: Sedated - Constitutional Vitals: Temp Pulse Resp BP Pulse Ox 98.4 F 86 26 H 99/45 95 12/28/19 08:00 12/28/19 10:00 12/28/19 10:00 12/28/19 10:00 12/28/19 10:00 General appearance: Present: severe distress HEART Score - HEART Score Troponin: Troponin T 0.011 ng/mL (0.00-0.029) 12/18/19 14:45 Results - Labs CBC & Chem 7: 12/28/19 04:37 12/28/19 04:37 Labs: Laboratory Last Values WBC 8.2 K/mm3 (4.5-11.0) 12/28/19 04:37 RBC 3.88 M/mm3 (3.65-5.03) 12/28/19 04:37 Hgb 9.8 gm/dl (11.8-15.2) L 12/28/19 04:37 Hct 33.5 % (35.5-45.6) L 12/28/19 04:37 MCV 86 fl (84-94) 12/28/19 04:37 MCH 25 pg (28-32) L 12/28/19 04:37 MCHC 29 % (32-34) L 12/28/19 04:37 RDW 21.1 % (13.2-15.2) H 12/28/19 04:37 Plt Count 149 K/mm3 (140-440) 12/28/19 04:37 Lymph % (Auto) 9.0 % (13.4-35.0) L 12/22/19 05:15 [place]ois % (Auto) 12.3 % (0.0-7.3) H 12/22/19 05:15 Eos % (Auto) 5.0 % (0.0-4.3) H 12/22/19 05:15 Baso % (Auto) 0.5 % (0.0-1.8) 12/22/19 05:15 Lymph # 0.5 K/mm3 (1.2-5.4) L 12/22/19 05:15 [place]ois # 0.7 K/mm3 (0.0-0.8) 12/22/19 05:15 Eos # 0.3 K/mm3 (0.0-0.4) 12/22/19 05:15 Baso # 0.0 K/mm3 (0.0-0.1) 12/22/19 05:15 Add Manual Diff Complete 12/24/19 04:53 Total Counted 100 12/24/19 04:53 Seg Neutrophils % 73.2 % (40.0-70.0) H 12/22/19 05:15 Seg Neuts % (Manual) 60.0 % (40.0-70.0) 12/24/19 04:53 Band Neutrophils % 0 % 12/24/19 04:53 Lymphocytes % (Manual) 20.0 % (13.4-35.0) 12/24/19 04:53 Reactive Lymphs % (Man) 0 % 12/24/19 04:53 Monocytes % (Manual) 15.0 % (0.0-7.3) H 12/24/19 04:53 Eosinophils % (Manual) 4.0 % (0.0-4.3) 12/24/19 04:53 Basophils % (Manual) 0 % (0.0-1.8) 12/24/19 04:53 Metamyelocytes % 1.0 % 12/24/19 04:53 Myelocytes % 0 % 12/24/19 04:53 Promyelocytes % 0 % 12/24/19 04:53 Blast Cells % 0 % 12/24/19 04:53 Nucleated RBC % Not Reportable 12/24/19 04:53 Seg Neutrophils # 4.4 K/mm3 (1.8-7.7) 12/22/19 05:15 Seg Neutrophils # Man 3.5 K/mm3 (1.8-7.7) 12/24/19 04:53 Band Neutrophils # 0.0 K/mm3 12/24/19 04:53 Lymphocytes # (Manual) 1.2 K/mm3 (1.2-5.4) 12/24/19 04:53 Abs React Lymphs (Man) 0.0 K/mm3 12/24/19 04:53 Monocytes # (Manual) 0.9 K/mm3 (0.0-0.8) H 12/24/19 04:53 Eosinophils # (Manual) 0.2 K/mm3 (0.0-0.4) 12/24/19 04:53 Basophils # (Manual) 0.0 K/mm3 (0.0-0.1) 12/24/19 04:53 Metamyelocytes # 0.1 K/mm3 12/24/19 04:53 Myelocytes # 0.0 K/mm3 12/24/19 04:53 Promyelocytes # 0.0 K/mm3 12/24/19 04:53 Blast Cells # 0.0 K/mm3 12/24/19 04:53 WBC Morphology Not Reportable 12/24/19 04:53 Hypersegmented Neuts Not Reportable 12/24/19 04:53 Hyposegmented Neuts Not Reportable 12/24/19 04:53 Hypogranular Neuts Not Reportable 12/24/19 04:53 Smudge Cells Not Reportable 12/24/19 04:53 Toxic Granulation Not Reportable 12/24/19 04:53 Toxic Vacuolation Not Reportable 12/24/19 04:53 Dohle Bodies Not Reportable 12/24/19 04:53 Pelger-Huet Anomaly Not Reportable 12/24/19 04:53 Mervin Rods Not Reportable 12/24/19 04:53 Platelet Estimate Consistent w auto 12/24/19 04:53 Clumped Platelets Not Reportable 12/24/19 04:53 Plt Clumps, EDTA Not Reportable 12/24/19 04:53 Large Platelets Not Reportable 12/24/19 04:53 Giant Platelets Not Reportable 12/24/19 04:53 Platelet Satelliting Not Reportable 12/24/19 04:53 Plt Morphology Comment Not Reportable 12/24/19 04:53 RBC Morphology Not Reportable 12/24/19 04:53 Dimorphic RBCs Not Reportable 12/24/19 04:53 Polychromasia Rare 12/24/19 04:53 Hypochromasia 1+ 12/24/19 04:53 Poikilocytosis Not Reportable 12/24/19 04:53 Anisocytosis 1+ 12/24/19 04:53 Microcytosis Few 12/24/19 04:53 Macrocytosis Not Reportable 12/24/19 04:53 Spherocytes Not Reportable 12/24/19 04:53 Pappenheimer Bodies Not Reportable 12/24/19 04:53 Sickle Cells Not Reportable 12/24/19 04:53 Target Cells Not Reportable 12/24/19 04:53 Tear Drop Cells Not Reportable 12/24/19 04:53 Ovalocytes Few 12/24/19 04:53 Helmet Cells Not Reportable 12/24/19 04:53 Brink-Amberley Bodies Not Reportable 12/24/19 04:53 [place] Rings Not Reportable 12/24/19 04:53 [place] Cells Not Reportable 12/24/19 04:53 Bite Cells Not Reportable 12/24/19 04:53 Crenated Cell Not Reportable 12/24/19 04:53 Elliptocytes Not Reportable 12/24/19 04:53 Acanthocytes (Spur) Not Reportable 12/24/19 04:53 Rouleaux Not Reportable 12/24/19 04:53 Hemoglobin C Crystals Not Reportable 12/24/19 04:53 Schistocytes Not Reportable 12/24/19 04:53 Malaria parasites Not Reportable 12/24/19 04:53 Gianni Bodies Not Reportable 12/24/19 04:53 Hem Pathologist Commnt No 12/24/19 04:53 PT 14.0 Sec. (12.2-14.9) 12/18/19 14:45 INR 1.10 (0.87-1.13) 12/18/19 14:45 APTT 29.4 Sec. (24.2-36.6) 12/18/19 14:45 D-Dimer 534.45 ng/mlDDU (0-234) H 12/18/19 14:45 ABG pH 7.437 pH Units (7.350-7.450) 12/28/19 05:19 ABG pCO2 43.5 mm Hg 12/28/19 05:19 ABG pO2 51.7 mm Hg (80.0-90.0) L 12/28/19 05:19 ABG HCO3 28.7 mmol/L (20.0-26.0) H 12/28/19 05:19 ABG O2 Saturation 89.9 % (95.0-99.0) L 12/28/19 05:19 ABG O2 Content 11.9 (0.0-44) 12/28/19 05:19 ABG Base Excess 4.1 mmol/L (-2.0-3.0) H 12/28/19 05:19 ABG Hemoglobin 9.7 gm/dl (14.0-18.0) L 12/28/19 05:19 ABG Carboxyhemoglobin 1.7 % (0.0-5.0) 12/28/19 05:19 ABG Methemoglobin 0.7 % (0.0-1.5) 12/28/19 05:19 Oxyhemoglobin 87.7 % (95.0-99.0) L 12/28/19 05:19 FiO2 70 % 12/28/19 05:19 Sodium 157 mmol/L (137-145) H 12/28/19 04:37 Potassium 3.4 mmol/L (3.6-5.0) L 12/28/19 04:37 Chloride 117.5 mmol/L (98-107) H 12/28/19 04:37 Carbon Dioxide 26 mmol/L (22-30) D 12/28/19 04:37 Anion Gap 17 mmol/L 12/28/19 04:37 BUN 14 mg/dL (9-20) 12/28/19 04:37 Creatinine 1.4 mg/dL (0.8-1.5) 12/28/19 04:37 Estimated GFR > 60 ml/min 12/28/19 04:37 BUN/Creatinine Ratio 10 % 12/28/19 04:37 Glucose 193 mg/dL (75-100) H 12/28/19 04:37 POC Glucose 202 (70-105) H 12/28/19 04:52 Lactic Acid 1.40 mmol/L (0.7-2.0) 12/18/19 23:08 Calcium 9.0 mg/dL (8.4-10.2) 12/28/19 04:37 Phosphorus 3.70 mg/dL (2.5-4.5) 12/27/19 03:48 Magnesium 2.70 mg/dL (1.7-2.3) H 12/27/19 03:48 Ferritin 83.4 ng/mL (13.0-400.0) 12/18/19 14:45 Total Bilirubin 0.30 mg/dL (0.1-1.2) 12/19/19 04:13 AST 85 units/L (5-40) H 12/19/19 04:13 ALT 61 units/L (7-56) H 12/19/19 04:13 Alkaline Phosphatase 80 units/L (35-129) 12/19/19 04:13 Ammonia 39.0 umol/L (25-60) 12/18/19 14:45 Lactate Dehydrogenase 235 units/L (91-180) H 12/18/19 14:45 Lactate Dehydrogenase 236 units/L (91-180) H 12/18/19 14:45 Total Creatine Kinase 40 units/L (55-170) L 12/18/19 14:45 Troponin T 0.011 ng/mL (0.00-0.029) 12/18/19 14:45 C-Reactive Protein 8.40 mg/dL (0.00-1.30) H 12/18/19 14:45 C-Reactive Protein 8.50 mg/dL (0.00-1.30) H 12/18/19 14:45 Total Protein 6.8 g/dL (6.3-8.2) 12/19/19 04:13 Albumin 3.0 g/dL (3.9-5) L 12/19/19 04:13 Albumin/Globulin Ratio 0.8 % 12/19/19 04:13 Procalcitonin 0.22 ng/mL (<0.15) 12/18/19 14:45 TSH 2.300 mlU/mL (0.270-4.200) 12/18/19 14:45 Urine Color Yellow (Yellow) 12/19/19 16:50 Urine Turbidity Clear (Clear) 12/19/19 16:50 Urine pH 5.0 (5.0-7.0) 12/19/19 16:50 Ur Specific [place] 1.010 (1.003-1.030) 12/19/19 16:50 Urine Protein <15 mg/dl mg/dL (Negative) 12/19/19 16:50 Urine Glucose (UA) 150 mg/dL (Negative) 12/19/19 16:50 Urine Ketones Neg mg/dL (Negative) 12/19/19 16:50 Urine Blood Neg (Negative) 12/19/19 16:50 Urine Nitrite Neg (Negative) 12/19/19 16:50 Urine Bilirubin Neg (Negative) 12/19/19 16:50 Urine Urobilinogen < 2.0 mg/dL (<2.0) 12/19/19 16:50 Ur Leukocyte Esterase Tr (Negative) 12/19/19 16:50 Urine WBC (Auto) 7.0 /HPF (0.0-6.0) H 12/19/19 16:50 Urine RBC (Auto) 4.0 /HPF (0.0-6.0) 12/19/19 16:50 U Epithel Cells (Auto) 1.0 /HPF (0-13.0) 12/19/19 16:50 Urine Bacteria (Auto) 1+ /HPF (Negative) 12/19/19 16:50 Urine Mucus Few /HPF 12/19/19 16:50 Urine Osmolality 140 Mosm/kg 12/25/19 16:45 Urine Creatinine < 4.2 mg/dL (0.1-20.0) 12/25/19 16:45 Urine Sodium 10 mmol/L 12/25/19 16:45 Urine Total Protein < 4 mg/dL (5-11.8) L 12/25/19 16:45 Digoxin 0.3 ng/mL (0.9-2.0) L 12/18/19 14:45 Salicylates < 0.3 mg/dL (2.8-20.0) L 12/18/19 14:45 Acetaminophen < 5.0 ug/mL (10.0-30.0) L 12/18/19 14:45 Plasma/Serum Alcohol < 0.01 % (0-0.07) 12/18/19 14:45 Coronavirus (PCR) Negative (Negative) 12/21/19 14:45 Blood Type A POSITIVE 12/18/19 14:45 Antibody Screen Negative 12/18/19 14:45 Microbiology: Microbiology 12/27/19 16:57 Tracheal Aspirate Sputum Culture - Preliminary 12/18/19 13:33 Tracheal Aspirate Sputum Culture - Final Sykes/IV: Voiding Method Condom Catheter IV Catheter Type [Right Leg] Intra-osseous IV Catheter Type [Right Wrist] Peripheral IV IV Catheter Type [Right Hand] INT / Saline Lock IV Catheter Type [Left Hand] INT / Saline Lock IV Catheter Type [Left Forearm INT / Saline Lock ] IV Catheter Type [Left Triple Lumen Cath Internal Jugular] Active Medications - Current Medications Current Medications: Generic Name Dose Route Start Last Admin Trade Name Freq PRN Reason Stop Dose Admin Albuterol/Ipratropium 1 ampul 12/18/19 14:00 12/28/19 09:52 Duoneb *Not For Prn Use* IH 1 ampul TIDRT SHANEL Administration Lipase/Protease/Amylase 1 each 12/19/19 08:29 Pancreaze 10,500 Unit FEEDTUBE PRN PRN For Clogged Feeding Tube Aspirin 81 mg 12/19/19 10:00 12/28/19 10:26 Baby Aspirin PO 81 mg DAILY SHANEL Administration Famotidine 20 mg 12/20/19 10:00 12/28/19 10:26 Pepcid PO 20 mg BID SHANEL Administration Fentanyl 50 mcg 12/27/19 16:57 Sublimaze IV Q10MIN PRN ANALGESIA Folic Acid 1 mg 12/19/19 10:00 12/28/19 10:26 Folvite PO 1 mg DAILY SHANEL Administration Heparin Sodium (Porcine) 5,000 unit 12/18/19 22:00 12/28/19 10:26 Heparin SUB-Q 5,000 unit Q12HR SHANEL Administration Hydrophilic Ointment 1 applic 12/18/19 12:35 Vaseline Lip Therapy TP Q2HR PRN Dry Lips Dextrose 1,000 mls @ 50 mls/hr 12/27/19 14:00 12/28/19 10:25 D5w IV 12/30/19 09:59 100 mls/hr DIRECT SHANEL Administration Fentanyl Citrate 2,000 mcg in 100 mls @ 5.85 mls/hr 12/27/19 17:00 12/28/19 10:38 Fentanyl Drip Premix IV 0.17 mcg/kg/hr TITR SHANEL 1 mls/hr Titration Protocol 1 MCG/KG/HR Dopamine HCl/Dextrose 800 mg in 250 mls @ 4.388 mls/hr 12/27/19 19:00 12/28/19 10:15 Intropin Drip 800 Mg/D5w 250 Ml IV 10 mcg/kg/min TITR SHANEL 21.938 mls/hr Titration Protocol 2 MCG/KG/MIN Insulin Glargine 10 units 12/27/19 22:00 12/27/19 21:39 Lantus SUB-Q 10 units QHS SHANEL Administration Insulin Human Lispro 0 unit 12/20/19 00:00 12/28/19 04:55 Humalog SUB-Q 4 unit Q6HR SHANEL Administration Protocol Levothyroxine Sodium 88 mcg 12/19/19 06:00 12/28/19 10:12 Synthroid PO Not Given QAM@0600 SHANEL Multi-Ingred Cream/Lotion/Oil/Oint 1 applic 12/18/19 12:35 Artificial Tears Ophth Oint OU Q4HR PRN Dry Eye(s) Potassium Chloride 20 meq 12/19/19 10:00 12/28/19 10:26 Potassium Chloride FEEDTUBE 20 meq QDAY SHANEL Administration Simple Syrup 15 ml 12/19/19 08:29 Simple Syrup FEEDTUBE PRN PRN Hypoglycemia Simple Syrup 30 ml 12/19/19 08:29 Simple Syrup FEEDTUBE PRN PRN Hypoglycemia Sodium Bicarbonate 325 mg 12/19/19 08:29 Sodium Bicarbonate FEEDTUBE PRN PRN For Clogged Feeding Tube Sodium Chloride 10 ml 12/18/19 22:00 12/28/19 10:26 Sodium Chloride Flush Syringe 10 Ml IV 10 ml BID SHANEL Administration Sodium Chloride 10 ml 12/18/19 13:31 Sodium Chloride Flush Syringe 10 Ml IV PRN PRN LINE FLUSH Nutrition/Malnutrition Assess - Dietary Evaluation Nutrition/Malnutrition Findings: Nutrition Notes Start: 12/19/19 08:16 Freq: Status: Active Protocol: Document 12/28/19 08:40 LM (Rec: 12/28/19 08:46 LM [email or web address]) Nutrition Notes Initial or Follow up Reassessment Current Diagnosis Diabetes,Sepsis,Hypertension, Heart Failure,Respiratory Failure Other Pertinent Diagnosis Suspected COVID-19, pneu Current Diet no diet Labs/Tests Na 157 K 3.4 BG 193 Pertinent Medications Humalog Height 6 ft 2 in Weight 117 kg Star Body Weight (kg) 86.36 BMI 33.1 Weight Status Obese Subjective/Other Information MD consult to evaluate nutritional intake. Pt now intubated. RN stated that pt needs to start TF. Burn Absent Trauma Absent Current % PO Negligible Minimum of two criteria No physical signs of malnutrition #1 Nutrition Diagnosis Inadequate oral intake Diagnosis Progress(for reassessment Continues documentation) Is patient on ventilator? Yes Is Patient Ambulatory and/or Out of Bed No REE-([facility]-confined to bed) 2469.960 Kcal/Kg value to use for calculation 17 Approximate Energy Requirements Using 1989 kcal/Kg Calculation Used for Recommendations Kcal/kg Additional Notes Protein: 172g (>/=2g/kg using IBW 86kg) Fluid 1ml/kcal Nutrition Intervention Change Diet Order: TF Nutrition Support: Vital AF 1.2 at 65ml/hr Flush 200ml q4h for hypernatremia Flush 100ml q4h once resolved Kcal 1,872 Protein (gm) 117 Fluid (mL) 1,265 Goal #1 TF start/tolerance Anticipated Discharge Needs: unable to determine at this time Follow-Up By: 12/30/19 Additional Comments F/U for TF start/tolerance
--- NOTE | 2019-12-28 13:59 | Progress Note ---
Assessment and Plan Acute Hypoxemic Respiratory Failure Severe Sepsis with Shock Bilateral Pneumonia PUI COVID-19 Morbid Obesity H/O CHF JOE - begin lasix 20 mg IV daily X 5 days re: CHF - get 2D ECHO - replace serum phosphorus - wean vasopressors for MAP > 65 mmHg - discontinue Dopamine and begin Levophed - continue care as [id number] otherwise; - Daily SAT and SBT assessment as tolerated - accuchecks with glycemic control per SSI (While critically ill target blood glucose of 140-180 mg/dL; avoid hypoglycemia) - sedation for target RASS 0 to -1 - continue to wean supplemental oxygen for target O2 sat's > 92% acutely - continue bronchodilators with pulmonary hygiene per RT - VAP bundle addressed - lung protective strategies - wean per pulmonary driven protocols otherwise - continue to avoid benzodiazepine's, reduce the possibility of delirium - complete AB's per ID rec's (Rocephin) - prn analgesia per CPOT score - Maintenance of sleep-wake cycle - continue to avoid benzodiazepine's, reduce the possibility of delirium - continue enteral nutritional support at goal rate as tolerated - G.I. & VTE prophylaxis - PT/OT/ROM exercises - continue mobility protocols for pressure ulcer prophylaxis - repeat COVID-19 test negative - continue aspiration precautions - continue accuchecks with glycemic control per SSI (While critically ill target blood glucose of 140-180 mg/dL; avoid hypoglycemia) - Monitor hemodynamics closely - continue other care per attending / other consultants - discharge planning ongoing concurrently - LTAC evaluation requested .... Re-evaluate in am & prn CONDITION: CRITICAL PROGNOSIS: GUARDED CODE STATUS: FULL CODE The high probability of a clinically significant, sudden or life-threatening deterioration of the [respiratory, cardiovascular, GI & neurologic] system(s) required my full and direct attention, intervention and personal management. The aggregate critical care time was [33] minutes without overlap. Time includes spent on; [x] Data Review and interpretation [x] Patient assessment and monitoring of vital signs [x] Documentation [x] Medication orders and management Subjective Date of service: 12/28/19 Principal diagnosis: Ac. Hypoxemic Resp Failure; Septic Shock; Magdiel. PNA; PUI COVID-19; CHF; JOE Interval history: Patient is seen today for: Acute Hypoxemic Respiratory Failure; Severe Sepsis with Shock; Bilateral Pneumonia; PUI COVID-19; Morbid Obesity; H/O CHF; JOE Seen and examined at bedside; 24hour events reviewed; nursing and respiratory ca re staff consulted; no adverse overnight events reported to me; resting peacefully in bed; decompensated yesterday and intubated; now opn full support; also now on dopamine drip; no emesis or overt aspiration; no pleural fluid seen on US chest Objective Vital Signs - 12hr 12/28/19 12/28/19 12/28/19 02:00 03:00 03:50 Temperature Pulse Rate 83 85 Pulse Rate [ Bilateral] Respiratory 26 H 26 H Rate Respiratory Rate [Bilateral ] Blood Pressure 77/40 90/48 O2 Sat by Pulse 94 95 94 Oximetry 12/28/19 12/28/19 12/28/19 04:00 05:00 06:00 Temperature 98.1 F Pulse Rate 80 80 78 Pulse Rate [ Bilateral] Respiratory 26 H 26 H 26 H Rate Respiratory Rate [Bilateral ] Blood Pressure 122/50 122/50 110/44 O2 Sat by Pulse 92 90 92 Oximetry 12/28/19 12/28/19 12/28/19 07:00 08:00 09:00 Temperature 98.4 F Pulse Rate 80 92 H 97 H Pulse Rate [ Bilateral] Respiratory 26 H 26 H 26 H Rate Respiratory Rate [Bilateral ] Blood Pressure 104/45 112/52 101/46 O2 Sat by Pulse 93 92 86 Oximetry 12/28/19 12/28/19 12/28/19 09:29 09:57 10:00 Temperature Pulse Rate 91 H 86 Pulse Rate [ 92 H Bilateral] Respiratory 26 H Rate Respiratory 26 H Rate [Bilateral ] Blood Pressure 101/46 99/45 O2 Sat by Pulse 90 95 Oximetry 12/28/19 11:19 Temperature Pulse Rate 101 H Pulse Rate [ Bilateral] Respiratory Rate Respiratory Rate [Bilateral ] Blood Pressure 95/51 O2 Sat by Pulse 92 Oximetry Constitutional: no acute distress, alert, appears uncomfortable (elderly obese AAM with mildly increrased respiratory effort at rest) Eyes: non-icteric ENT: oropharynx moist, other Neck: supple, no lymphadenopathy, no JVD Effort: mildly labored Ascultation: Bilateral: diminished breath sounds, rhonchi Percussion: Bilateral: not dull Cardiovascular: regular rate and rhythm, other (S1,S2) Gastrointestinal: normoactive bowel sounds, soft, non-tender, other (protuberant) Integumentary: rash (stasis dermatyitis) Extremities: no cyanosis, pink and warm, pulses normal, no ischemia or petechiae, edema (trace) Neurologic: normal mental status, non-focal exam, pupils equal and round, CN II- XII normal, motor strength normal and (obeys simple commands) Psychiatric: mood appropriate, affect normal CBC and BMP: 12/29/19 04:59 12/29/19 04:59 ABG, PT/INR, D-dimer: ABG ABG pH 7.437 pH Units (7.350-7.450) 12/28/19 05:19 ABG pCO2 43.5 mm Hg 12/28/19 05:19 ABG pO2 51.7 mm Hg (80.0-90.0) L 12/28/19 05:19 ABG O2 Saturation 89.9 % (95.0-99.0) L 12/28/19 05:19 PT/INR, D-dimer PT 14.0 Sec. (12.2-14.9) 12/18/19 14:45 INR 1.10 (0.87-1.13) 12/18/19 14:45 D-Dimer 534.45 ng/mlDDU (0-234) H 12/18/19 14:45 Abnormal lab findings: Abnormal Labs 12/18/19 12/18/19 12/18/19 12:23 14:45 14:45 WBC Hgb 10.4 L Hct 35.2 L MCH 25 L MCHC 30 L RDW 18.8 H Lymph % (Auto) [place] % (Auto) 11.6 H Eos % (Auto) 4.8 H Lymph # [place] # 1.0 H Seg Neutrophils % Monocytes % (Manual) Monocytes # (Manual) D-Dimer ABG pH ABG pO2 ABG HCO3 ABG O2 Saturation ABG Base Excess ABG Hemoglobin Oxyhemoglobin Sodium Potassium Chloride Carbon Dioxide BUN Glucose POC Glucose 328 H Lactic Acid Calcium Magnesium AST ALT Lactate Dehydrogenase Total Creatine Kinase 40 L C-Reactive Protein Albumin Urine WBC (Auto) Urine Total Protein Digoxin Salicylates Acetaminophen 12/18/19 12/18/19 12/18/19 14:45 14:45 14:45 WBC Hgb Hct MCH MCHC RDW Lymph % (Auto) [place] % (Auto) Eos % (Auto) Lymph # [place] # Seg Neutrophils % Monocytes % (Manual) Monocytes # (Manual) D-Dimer 534.45 H ABG pH ABG pO2 ABG HCO3 ABG O2 Saturation ABG Base Excess ABG Hemoglobin Oxyhemoglobin Sodium 156 H Potassium Chloride 112.3 H Carbon Dioxide 31 H BUN 32 H Glucose 328 H POC Glucose Lactic Acid Calcium Magnesium AST ALT Lactate Dehydrogenase 235 H Total Creatine Kinase C-Reactive Protein 8.50 H Albumin 3.6 L Urine WBC (Auto) Urine Total Protein Digoxin 0.3 L Salicylates < 0.3 L Acetaminophen 12/18/19 12/18/19 12/18/19 14:45 14:45 16:00 WBC Hgb Hct MCH MCHC RDW Lymph % (Auto) [place] % (Auto) Eos % (Auto) Lymph # [place] # Seg Neutrophils % Monocytes % (Manual) Monocytes # (Manual) D-Dimer ABG pH ABG pO2 69.8 L ABG HCO3 31.8 H ABG O2 Saturation ABG Base Excess 5.4 H ABG Hemoglobin 10.0 L Oxyhemoglobin 92.9 L Sodium Potassium Chloride Carbon Dioxide BUN Glucose 314 H POC Glucose Lactic Acid Calcium Magnesium AST ALT Lactate Dehydrogenase 236 H Total Creatine Kinase C-Reactive Protein 8.40 H Albumin Urine WBC (Auto) Urine Total Protein Digoxin Salicylates Acetaminophen < 5.0 L 12/18/19 12/18/19 12/18/19 16:35 18:30 22:56 WBC Hgb Hct MCH MCHC RDW Lymph % (Auto) [place] % (Auto) Eos % (Auto) Lymph # [place] # Seg Neutrophils % Monocytes % (Manual) Monocytes # (Manual) D-Dimer ABG pH ABG pO2 ABG HCO3 ABG O2 Saturation ABG Base Excess ABG Hemoglobin Oxyhemoglobin Sodium Potassium Chloride Carbon Dioxide BUN Glucose POC Glucose 310 H 353 H Lactic Acid 2.50 H* Calcium Magnesium AST ALT Lactate Dehydrogenase Total Creatine Kinase C-Reactive Protein Albumin Urine WBC (Auto) Urine Total Protein Digoxin Salicylates Acetaminophen 12/19/19 12/19/19 12/19/19 04:13 04:13 06:00 WBC Hgb 10.0 L Hct 34.2 L MCH 25 L MCHC 29 L RDW 19.0 H Lymph % (Auto) [place] % (Auto) 10.1 H Eos % (Auto) Lymph # [place] # 1.1 H Seg Neutrophils % 71.8 H Monocytes % (Manual) Monocytes # (Manual) D-Dimer ABG pH ABG pO2 186.5 H ABG HCO3 27.8 H ABG O2 Saturation 99.1 H ABG Base Excess ABG Hemoglobin 10.4 L Oxyhemoglobin Sodium 157 H Potassium Chloride 119.1 H Carbon Dioxide BUN 26 H Glucose 302 H POC Glucose Lactic Acid Calcium 7.9 L Magnesium AST 85 H ALT 61 H Lactate Dehydrogenase Total Creatine Kinase C-Reactive Protein Albumin 3.0 L Urine WBC (Auto) Urine Total Protein Digoxin Salicylates Acetaminophen 12/19/19 12/19/19 12/19/19 08:30 11:55 16:50 WBC Hgb Hct MCH MCHC RDW Lymph % (Auto) [place] % (Auto) Eos % (Auto) Lymph # [place] # Seg Neutrophils % Monocytes % (Manual) Monocytes # (Manual) D-Dimer ABG pH ABG pO2 ABG HCO3 ABG O2 Saturation ABG Base Excess ABG Hemoglobin Oxyhemoglobin Sodium Potassium Chloride Carbon Dioxide BUN Glucose POC Glucose 264 H 251 H Lactic Acid Calcium Magnesium AST ALT Lactate Dehydrogenase Total Creatine Kinase C-Reactive Protein Albumin Urine WBC (Auto) 7.0 H Urine Total Protein Digoxin Salicylates Acetaminophen 12/19/19 12/19/19 12/20/19 17:41 23:42 03:35 WBC Hgb Hct MCH MCHC RDW Lymph % (Auto) [place] % (Auto) Eos % (Auto) Lymph # [place] # Seg Neutrophils % Monocytes % (Manual) Monocytes # (Manual) D-Dimer ABG pH ABG pO2 ABG HCO3 27.7 H ABG O2 Saturation ABG Base Excess ABG Hemoglobin 11.6 L Oxyhemoglobin 94.9 L Sodium Potassium Chloride Carbon Dioxide BUN Glucose POC Glucose 180 H 205 H Lactic Acid Calcium Magnesium AST ALT Lactate Dehydrogenase Total Creatine Kinase C-Reactive Protein Albumin Urine WBC (Auto) Urine Total Protein Digoxin Salicylates Acetaminophen 12/20/19 12/20/19 12/20/19 04:45 04:45 05:27 WBC Hgb 9.4 L Hct 31.4 L MCH 25 L MCHC 30 L RDW 19.4 H Lymph % (Auto) [place] % (Auto) 10.2 H Eos % (Auto) 6.0 H Lymph # 0.9 L [place] # Seg Neutrophils % Monocytes % (Manual) Monocytes # (Manual) D-Dimer ABG pH ABG pO2 ABG HCO3 ABG O2 Saturation ABG Base Excess ABG Hemoglobin Oxyhemoglobin Sodium 153 H Potassium Chloride 114.6 H Carbon Dioxide BUN Glucose 170 H POC Glucose 188 H Lactic Acid Calcium 7.9 L Magnesium AST ALT Lactate Dehydrogenase Total Creatine Kinase C-Reactive Protein Albumin Urine WBC (Auto) Urine Total Protein Digoxin Salicylates Acetaminophen 12/20/19 12/20/19 12/21/19 12:26 18:20 00:20 WBC Hgb Hct MCH MCHC RDW Lymph % (Auto) [place] % (Auto) Eos % (Auto) Lymph # [place] # Seg Neutrophils % Monocytes % (Manual) Monocytes # (Manual) D-Dimer ABG pH ABG pO2 ABG HCO3 ABG O2 Saturation ABG Base Excess ABG Hemoglobin Oxyhemoglobin Sodium Potassium Chloride Carbon Dioxide BUN Glucose POC Glucose 200 H 263 H 218 H Lactic Acid Calcium Magnesium AST ALT Lactate Dehydrogenase Total Creatine Kinase C-Reactive Protein Albumin Urine WBC (Auto) Urine Total Protein Digoxin Salicylates Acetaminophen 12/21/19 12/21/19 12/21/19 04:38 05:26 12:35 WBC Hgb Hct MCH MCHC RDW Lymph % (Auto) [place] % (Auto) Eos % (Auto) Lymph # [place] # Seg Neutrophils % Monocytes % (Manual) Monocytes # (Manual) D-Dimer ABG pH ABG pO2 ABG HCO3 ABG O2 Saturation ABG Base Excess ABG Hemoglobin Oxyhemoglobin Sodium 149 H Potassium 3.5 L Chloride 110.5 H Carbon Dioxide BUN Glucose 158 H POC Glucose 193 H 193 H Lactic Acid Calcium Magnesium AST ALT Lactate Dehydrogenase Total Creatine Kinase C-Reactive Protein Albumin Urine WBC (Auto) Urine Total Protein Digoxin Salicylates Acetaminophen 12/21/19 12/22/19 12/22/19 18:29 00:03 05:15 WBC Hgb 10.3 L Hct 34.7 L MCH 25 L MCHC 30 L RDW 19.4 H Lymph % (Auto) 9.0 L [place] % (Auto) 12.3 H Eos % (Auto) 5.0 H Lymph # 0.5 L [place] # Seg Neutrophils % 73.2 H Monocytes % (Manual) Monocytes # (Manual) D-Dimer ABG pH ABG pO2 ABG HCO3 ABG O2 Saturation ABG Base Excess ABG Hemoglobin Oxyhemoglobin Sodium Potassium Chloride Carbon Dioxide BUN Glucose POC Glucose 186 H 143 H Lactic Acid Calcium Magnesium AST ALT Lactate Dehydrogenase Total Creatine Kinase C-Reactive Protein Albumin Urine WBC (Auto) Urine Total Protein Digoxin Salicylates Acetaminophen 12/22/19 12/22/19 12/22/19 05:15 06:02 12:13 WBC Hgb Hct MCH MCHC RDW Lymph % (Auto) [place] % (Auto) Eos % (Auto) Lymph # [place] # Seg Neutrophils % Monocytes % (Manual) Monocytes # (Manual) D-Dimer ABG pH ABG pO2 ABG HCO3 ABG O2 Saturation ABG Base Excess ABG Hemoglobin Oxyhemoglobin Sodium 152 H Potassium Chloride 113.5 H Carbon Dioxide BUN Glucose 126 H POC Glucose 144 H 159 H Lactic Acid Calcium Magnesium AST ALT Lactate Dehydrogenase Total Creatine Kinase C-Reactive Protein Albumin Urine WBC (Auto) Urine Total Protein Digoxin Salicylates Acetaminophen 12/22/19 12/22/19 12/23/19 18:03 23:50 05:27 WBC Hgb Hct MCH MCHC RDW Lymph % (Auto) [place] % (Auto) Eos % (Auto) Lymph # [place] # Seg Neutrophils % Monocytes % (Manual) Monocytes # (Manual) D-Dimer ABG pH ABG pO2 ABG HCO3 ABG O2 Saturation ABG Base Excess ABG Hemoglobin Oxyhemoglobin Sodium Potassium Chloride Carbon Dioxide BUN Glucose POC Glucose 140 H 227 H 185 H Lactic Acid Calcium Magnesium AST ALT Lactate Dehydrogenase Total Creatine Kinase C-Reactive Protein Albumin Urine WBC (Auto) Urine Total Protein Digoxin Salicylates Acetaminophen 12/23/19 12/23/19 12/23/19 12:13 16:05 16:40 WBC Hgb Hct MCH MCHC RDW Lymph % (Auto) [place] % (Auto) Eos % (Auto) Lymph # [place] # Seg Neutrophils % Monocytes % (Manual) Monocytes # (Manual) D-Dimer ABG pH 7.259 L ABG pO2 76.2 L ABG HCO3 30.6 H ABG O2 Saturation 94.6 L ABG Base Excess ABG Hemoglobin 11.5 L Oxyhemoglobin 92.2 L Sodium 163 H* D Potassium 3.4 L Chloride 120.1 H Carbon Dioxide BUN Glucose 162 H POC Glucose 132 H Lactic Acid Calcium Magnesium AST ALT Lactate Dehydrogenase Total Creatine Kinase C-Reactive Protein Albumin Urine WBC (Auto) Urine Total Protein Digoxin Salicylates Acetaminophen 12/23/19 12/24/19 12/24/19 17:53 00:48 04:20 WBC Hgb Hct MCH MCHC RDW Lymph % (Auto) [place] % (Auto) Eos % (Auto) Lymph # [place] # Seg Neutrophils % Monocytes % (Manual) Monocytes # (Manual) D-Dimer ABG pH ABG pO2 ABG HCO3 30.4 H ABG O2 Saturation ABG Base Excess 3.9 H ABG Hemoglobin 10.3 L Oxyhemoglobin 94.4 L Sodium Potassium Chloride Carbon Dioxide BUN Glucose POC Glucose 180 H 174 H Lactic Acid Calcium Magnesium AST ALT Lactate Dehydrogenase Total Creatine Kinase C-Reactive Protein Albumin Urine WBC (Auto) Urine Total Protein Digoxin Salicylates Acetaminophen 12/24/19 12/24/19 12/24/19 04:53 04:53 11:50 WBC Hgb 9.7 L Hct 33.2 L MCH 25 L MCHC 29 L RDW 20.1 H Lymph % (Auto) [place] % (Auto) Eos % (Auto) Lymph # [place] # Seg Neutrophils % Monocytes % (Manual) 15.0 H Monocytes # (Manual) 0.9 H D-Dimer ABG pH ABG pO2 ABG HCO3 ABG O2 Saturation ABG Base Excess ABG Hemoglobin Oxyhemoglobin Sodium 163 H* Potassium 3.2 L Chloride 122.6 H Carbon Dioxide BUN Glucose 168 H POC Glucose 190 H Lactic Acid Calcium Magnesium AST ALT Lactate Dehydrogenase Total Creatine Kinase C-Reactive Protein Albumin Urine WBC (Auto) Urine Total Protein Digoxin Salicylates Acetaminophen 12/24/19 12/24/19 12/24/19 15:00 16:28 21:15 WBC Hgb Hct MCH MCHC RDW Lymph % (Auto) [place] % (Auto) Eos % (Auto) Lymph # [place] # Seg Neutrophils % Monocytes % (Manual) Monocytes # (Manual) D-Dimer ABG pH ABG pO2 ABG HCO3 ABG O2 Saturation ABG Base Excess ABG Hemoglobin Oxyhemoglobin Sodium 165 H* D 163 H* Potassium Chloride Carbon Dioxide BUN Glucose POC Glucose 160 H Lactic Acid Calcium Magnesium AST ALT Lactate Dehydrogenase Total Creatine Kinase C-Reactive Protein Albumin Urine WBC (Auto) Urine Total Protein Digoxin Salicylates Acetaminophen 12/25/19 12/25/19 12/25/19 00:31 05:38 05:46 WBC Hgb 9.7 L Hct 32.5 L MCH 25 L MCHC 30 L RDW 19.4 H Lymph % (Auto) [place] % (Auto) Eos % (Auto) Lymph # [place] # Seg Neutrophils % Monocytes % (Manual) Monocytes # (Manual) D-Dimer ABG pH ABG pO2 ABG HCO3 ABG O2 Saturation ABG Base Excess ABG Hemoglobin Oxyhemoglobin Sodium Potassium Chloride Carbon Dioxide BUN Glucose POC Glucose 182 H 194 H Lactic Acid Calcium Magnesium AST ALT Lactate Dehydrogenase Total Creatine Kinase C-Reactive Protein Albumin Urine WBC (Auto) Urine Total Protein Digoxin Salicylates Acetaminophen 12/25/19 12/25/19 12/25/19 05:46 11:35 11:38 WBC Hgb Hct MCH MCHC RDW Lymph % (Auto) [place] % (Auto) Eos % (Auto) Lymph # [place] # Seg Neutrophils % Monocytes % (Manual) Monocytes # (Manual) D-Dimer ABG pH 7.330 L ABG pO2 65.7 L ABG HCO3 32.6 H ABG O2 Saturation 92.5 L ABG Base Excess 5.3 H ABG Hemoglobin 10.4 L Oxyhemoglobin 90.0 L Sodium 166 H* Potassium 2.9 L* Chloride 124.5 H Carbon Dioxide BUN Glucose 190 H POC Glucose 192 H Lactic Acid Calcium Magnesium AST ALT Lactate Dehydrogenase Total Creatine Kinase C-Reactive Protein Albumin Urine WBC (Auto) Urine Total Protein Digoxin Salicylates Acetaminophen 12/25/19 12/25/19 12/25/19 13:01 16:45 17:20 WBC Hgb Hct MCH MCHC RDW Lymph % (Auto) [place] % (Auto) Eos % (Auto) Lymph # [place] # Seg Neutrophils % Monocytes % (Manual) Monocytes # (Manual) D-Dimer ABG pH 7.296 L ABG pO2 101.5 H ABG HCO3 33.2 H ABG O2 Saturation ABG Base Excess 5.3 H ABG Hemoglobin 9.6 L Oxyhemoglobin 94.6 L Sodium 174 H* Potassium Chloride Carbon Dioxide BUN Glucose POC Glucose Lactic Acid Calcium Magnesium AST ALT Lactate Dehydrogenase Total Creatine Kinase C-Reactive Protein Albumin Urine WBC (Auto) Urine Total Protein < 4 L Digoxin Salicylates Acetaminophen 12/25/19 12/25/19 12/26/19 17:48 18:50 00:43 WBC Hgb Hct MCH MCHC RDW Lymph % (Auto) [place] % (Auto) Eos % (Auto) Lymph # [place] # Seg Neutrophils % Monocytes % (Manual) Monocytes # (Manual) D-Dimer ABG pH ABG pO2 ABG HCO3 ABG O2 Saturation ABG Base Excess ABG Hemoglobin Oxyhemoglobin Sodium 166 H* 164 H* Potassium Chloride 127.3 H Carbon Dioxide BUN Glucose 220 H POC Glucose 252 H Lactic Acid Calcium Magnesium AST ALT Lactate Dehydrogenase Total Creatine Kinase C-Reactive Protein Albumin Urine WBC (Auto) Urine Total Protein Digoxin Salicylates Acetaminophen 12/26/19 12/26/19 12/26/19 05:31 08:07 08:07 WBC 4.3 L Hgb 9.6 L Hct 32.1 L MCH 26 L MCHC 30 L RDW 20.5 H Lymph % (Auto) [place] % (Auto) Eos % (Auto) Lymph # [place] # Seg Neutrophils % Monocytes % (Manual) Monocytes # (Manual) D-Dimer ABG pH ABG pO2 ABG HCO3 ABG O2 Saturation ABG Base Excess ABG Hemoglobin Oxyhemoglobin Sodium 162 H* Potassium Chloride 122.1 H Carbon Dioxide BUN Glucose 247 H POC Glucose 187 H Lactic Acid Calcium Magnesium AST ALT Lactate Dehydrogenase Total Creatine Kinase C-Reactive Protein Albumin Urine WBC (Auto) Urine Total Protein Digoxin Salicylates Acetaminophen 12/26/19 12/26/19 12/26/19 08:07 12:20 16:25 WBC Hgb Hct MCH MCHC RDW Lymph % (Auto) [place] % (Auto) Eos % (Auto) Lymph # [place] # Seg Neutrophils % Monocytes % (Manual) Monocytes # (Manual) D-Dimer ABG pH 7.290 L ABG pO2 73.2 L ABG HCO3 33.2 H ABG O2 Saturation 94.9 L ABG Base Excess 5.2 H ABG Hemoglobin 10.0 L Oxyhemoglobin 92.5 L Sodium 159 H Potassium Chloride Carbon Dioxide BUN Glucose POC Glucose 234 H Lactic Acid Calcium Magnesium AST ALT Lactate Dehydrogenase Total Creatine Kinase C-Reactive Protein Albumin Urine WBC (Auto) Urine Total Protein Digoxin Salicylates Acetaminophen 12/26/19 12/26/19 12/26/19 17:33 22:35 23:30 WBC Hgb Hct MCH MCHC RDW Lymph % (Auto) [place] % (Auto) Eos % (Auto) Lymph # [place] # Seg Neutrophils % Monocytes % (Manual) Monocytes # (Manual) D-Dimer ABG pH ABG pO2 ABG HCO3 ABG O2 Saturation ABG Base Excess ABG Hemoglobin Oxyhemoglobin Sodium Potassium Chloride Carbon Dioxide BUN Glucose POC Glucose 244 H 208 H 287 H Lactic Acid Calcium Magnesium AST ALT Lactate Dehydrogenase Total Creatine Kinase C-Reactive Protein Albumin Urine WBC (Auto) Urine Total Protein Digoxin Salicylates Acetaminophen 12/27/19 12/27/19 12/27/19 03:48 03:48 03:48 WBC Hgb 10.1 L Hct 35.4 L MCH 25 L MCHC 29 L RDW 20.1 H Lymph % (Auto) [place] % (Auto) Eos % (Auto) Lymph # [place] # Seg Neutrophils % Monocytes % (Manual) Monocytes # (Manual) D-Dimer ABG pH ABG pO2 ABG HCO3 ABG O2 Saturation ABG Base Excess ABG Hemoglobin Oxyhemoglobin Sodium 160 H Potassium Chloride 118.8 H Carbon Dioxide 33 H BUN Glucose 217 H POC Glucose Lactic Acid Calcium Magnesium 2.70 H AST ALT Lactate Dehydrogenase Total Creatine Kinase C-Reactive Protein Albumin Urine WBC (Auto) Urine Total Protein Digoxin Salicylates Acetaminophen 12/27/19 12/27/19 12/27/19 05:50 11:58 16:05 WBC Hgb Hct MCH MCHC RDW Lymph % (Auto) [place] % (Auto) Eos % (Auto) Lymph # [place] # Seg Neutrophils % Monocytes % (Manual) Monocytes # (Manual) D-Dimer ABG pH 7.180 L* ABG pO2 73.6 L ABG HCO3 34.8 H ABG O2 Saturation 92.7 L ABG Base Excess 3.8 H ABG Hemoglobin 12.0 L Oxyhemoglobin 90.2 L Sodium Potassium Chloride Carbon Dioxide BUN Glucose POC Glucose 224 H 218 H Lactic Acid Calcium Magnesium AST ALT Lactate Dehydrogenase Total Creatine Kinase C-Reactive Protein Albumin Urine WBC (Auto) Urine Total Protein Digoxin Salicylates Acetaminophen 12/27/19 12/27/19 12/27/19 18:05 19:50 21:53 WBC Hgb Hct MCH MCHC RDW Lymph % (Auto) [place] % (Auto) Eos % (Auto) Lymph # [place] # Seg Neutrophils % Monocytes % (Manual) Monocytes # (Manual) D-Dimer ABG pH 7.328 L ABG pO2 49.9 L ABG HCO3 33.3 H ABG O2 Saturation 87.1 L ABG Base Excess 5.7 H ABG Hemoglobin 11.2 L Oxyhemoglobin 84.8 L Sodium Potassium Chloride Carbon Dioxide BUN Glucose POC Glucose 214 H 178 H Lactic Acid Calcium Magnesium AST ALT Lactate Dehydrogenase Total Creatine Kinase C-Reactive Protein Albumin Urine WBC (Auto) Urine Total Protein Digoxin Salicylates Acetaminophen 12/28/19 12/28/19 12/28/19 00:42 04:37 04:37 WBC Hgb 9.8 L Hct 33.5 L MCH 25 L MCHC 29 L RDW 21.1 H Lymph % (Auto) [place] % (Auto) Eos % (Auto) Lymph # [place] # Seg Neutrophils % Monocytes % (Manual) Monocytes # (Manual) D-Dimer ABG pH ABG pO2 ABG HCO3 ABG O2 Saturation ABG Base Excess ABG Hemoglobin Oxyhemoglobin Sodium 157 H Potassium 3.4 L Chloride 117.5 H Carbon Dioxide BUN Glucose 193 H POC Glucose 157 H Lactic Acid Calcium Magnesium AST ALT Lactate Dehydrogenase Total Creatine Kinase C-Reactive Protein Albumin Urine WBC (Auto) Urine Total Protein Digoxin Salicylates Acetaminophen 12/28/19 12/28/19 12/28/19 04:52 05:19 12:05 WBC Hgb Hct MCH MCHC RDW Lymph % (Auto) [place] % (Auto) Eos % (Auto) Lymph # [place] # Seg Neutrophils % Monocytes % (Manual) Monocytes # (Manual) D-Dimer ABG pH ABG pO2 51.7 L ABG HCO3 28.7 H ABG O2 Saturation 89.9 L ABG Base Excess 4.1 H ABG Hemoglobin 9.7 L Oxyhemoglobin 87.7 L Sodium Potassium Chloride Carbon Dioxide BUN Glucose POC Glucose 202 H 248 H Lactic Acid Calcium Magnesium AST ALT Lactate Dehydrogenase Total Creatine Kinase C-Reactive Protein Albumin Urine WBC (Auto) Urine Total Protein Digoxin Salicylates Acetaminophen Allied health notes reviewed: nursing
[2019-12-28] MEDS: NORepinephrine/NS 4 MG-250 ML 4 MG/250 ML BAG IV SCH ×2 (14:40→21:08)
[2019-12-28] MEDS: FUROSEMIDE 20 MG/2 ML INJ IV SCH (14:41)
[2019-12-28] MEDS: INSULIN GLARGINE 100 UNITS/ML SUB-Q SCH (21:13)
[2019-12-29] MEDS: NORepinephrine/NS 4 MG-250 ML 4 MG/250 ML BAG IV SCH ×5 (02:36→22:51)
[2019-12-29] MEDS: DEXTROSE 5% IN WATER 1,000 ML IV SCH (02:36)
[2019-12-29 04:58] LABS: ABG Base Excess 5.1 mmol/L (-2.0-3.0); ABG HCO3 29.2 mmol/L (20.0-26.0); ABG Methemoglobin 0.6 % (0.0-1.5); ABG Oxygen Saturation 98.5 % (95.0-99.0); ABG PCO2 40.8 mm Hg; ABG PH 7.473 pH Units (7.350-7.450); ABG PO2 126.1 mm Hg (80.0-90.0)
[2019-12-29 05:21] LABS: Hematocrit 31.1 % (35.5-45.6); Hemoglobin 9.3 gm/dl (11.8-15.2); Mean Corpuscular HGB Conc 30 % (32-34); Mean Corpuscular Volume 81 fl (84-94); Platelet Count 188 K/mm3 (140-440); Red Blood Count 3.84 M/mm3 (3.65-5.03); Red Cell Distribution Width 19.9 % (13.2-15.2)
[2019-12-29 05:47] LABS: Calcium 9.1 mg/dL (8.4-10.2)
[2019-12-29] MEDS: INSULIN LISPRO 100 UNIT/ML SUB-Q SCH ×4 (06:02→23:34)
[2019-12-29] MEDS: LEVOTHYROXINE 88 MCG TAB PO SCH (06:04)
[2019-12-29] MEDS: IPRATROPIUM/ALBUTEROL SULFATE 3 ML AMPUL.NEB IH SCH ×3 (07:29→20:11)
[2019-12-29] MEDS: POTASSIUM CHLORIDE 20 MEQ PACKET FEEDTUBE SCH ×2 (09:12→09:27)
[2019-12-29] MEDS: ASPIRIN 81 MG TAB CHEW PO SCH (09:12)
[2019-12-29] MEDS: FAMOTIDINE 20 MG TAB PO SCH ×2 (09:12→22:03)
[2019-12-29] MEDS: FOLIC ACID 1 MG TAB PO SCH (09:12)
[2019-12-29] MEDS: FUROSEMIDE 20 MG/2 ML INJ IV SCH (09:13)
[2019-12-29] MEDS: HEPARIN 5,000 UNIT/1 ML VIAL SUB-Q SCH ×2 (09:22→22:03)
--- NOTE | 2019-12-29 09:24 | Progress Note ---
Assessment and Plan - Patient Problems (1) Acute kidney injury Current Visit: Yes Status: Acute Plan to address problem: Overall renal function is stable, with slight fluctuation noted this am in setting of fever. Will monitor closely. (2) Acute respiratory failure Current Visit: Yes Status: Acute Qualifiers: Plan to address problem: Now re-intubated. Chest xray reviewed. Management on vent per Pulmonary/ICU. (3) Hypernatremia Current Visit: Yes Status: Acute Plan to address problem: Increase FWF to 300 cc q 4hrs. (4) Diastolic CHF Current Visit: Yes Status: Acute Qualifiers: Heart failure chronicity: acute on chronic Qualified Code(s): I50.33 - Acute on chronic diastolic (congestive) heart failure Plan to address problem: Chest Xray is concerning for volume overload. IVF decreased to 50 cc/hr, and will increase his FWF as necessary to meet goal free water replacement. (5) Hypokalemia Current Visit: Yes Status: Acute Plan to address problem: replete per protocol. Add another 40 meq KCl today. (6) Pneumonia Current Visit: No Status: Acute Qualifiers: Pneumonia type: due to unspecified organism Laterality: left Lung location: unspecified part of lung Qualified Code(s): J18.9 - Pneumonia, unspecified organism Plan to address problem: Management per primary/ICU team. Subjective Date of service: 12/29/19 Principal diagnosis: Ac. Hypoxemic Resp Failure; Septic Shock; Magdiel. PNA; PUI COVID-19; CHF; JOE Interval history: No acute changes, remains febrile. Labs noted, and discussed with nursing staff that we will increase his FWF to 300 cc q4h and add another 40 meq KCl supplementation Objective - Vital Signs Vital signs: Vital Signs - 12hr 12/28/19 12/28/19 12/28/19 21:30 22:00 22:30 Temperature Pulse Rate 87 80 85 Pulse Rate [ Bilateral] Respiratory 26 H 26 H 26 H Rate Respiratory Rate [Bilateral ] Blood Pressure 104/56 99/55 104/57 O2 Sat by Pulse 97 98 Oximetry 12/28/19 12/28/19 12/28/19 23:00 23:30 23:43 Temperature 99.5 F Pulse Rate 84 83 Pulse Rate [ Bilateral] Respiratory 26 H 26 H Rate Respiratory Rate [Bilateral ] Blood Pressure 102/57 109/55 O2 Sat by Pulse 98 98 Oximetry 12/29/19 12/29/19 12/29/19 00:00 00:16 00:30 Temperature Pulse Rate 83 91 H 89 Pulse Rate [ Bilateral] Respiratory 26 H 26 H Rate Respiratory Rate [Bilateral ] Blood Pressure 105/56 99/63 106/56 O2 Sat by Pulse 96 98 98 Oximetry 12/29/19 12/29/19 12/29/19 00:44 01:00 01:30 Temperature Pulse Rate 90 86 97 H Pulse Rate [ Bilateral] Respiratory 26 H 26 H Rate Respiratory Rate [Bilateral ] Blood Pressure 110/60 102/58 O2 Sat by Pulse 99 Oximetry 12/29/19 12/29/19 12/29/19 02:00 02:30 03:00 Temperature Pulse Rate 103 H 86 87 Pulse Rate [ Bilateral] Respiratory 26 H 25 H 26 H Rate Respiratory Rate [Bilateral ] Blood Pressure 85/43 100/45 113/50 O2 Sat by Pulse 99 100 100 Oximetry 12/29/19 12/29/19 12/29/19 03:30 03:52 04:00 Temperature 100.8 F H Pulse Rate 88 89 92 H Pulse Rate [ Bilateral] Respiratory 22 26 H Rate Respiratory Rate [Bilateral ] Blood Pressure 102/55 111/57 102/54 O2 Sat by Pulse 100 99 99 Oximetry 12/29/19 12/29/19 12/29/19 04:30 05:00 05:30 Temperature Pulse Rate 90 88 93 H Pulse Rate [ Bilateral] Respiratory 26 H 23 26 H Rate Respiratory Rate [Bilateral ] Blood Pressure 96/52 106/56 97/53 O2 Sat by Pulse 98 98 97 Oximetry 12/29/19 12/29/19 12/29/19 06:00 07:24 07:30 Temperature Pulse Rate 94 H 94 H Pulse Rate [ 93 H Bilateral] Respiratory 22 Rate Respiratory 24 Rate [Bilateral ] Blood Pressure 94/53 94/53 O2 Sat by Pulse 98 98 Oximetry - General Appearance General appearance: intubated EENT: ATNC Neck: no JVD, no thyromegaly Respiratory: Present: Decreased Breath Sounds Cardiology: regular Gastrointestinal: normal Integumentary: no rash Musculoskeletal: deferred - Lab 12/29/19 04:59 12/29/19 04:59 Most recent lab results ABG pH 7.473 pH Units (7.350-7.450) H 12/29/19 04:09 ABG pCO2 40.8 mm Hg 12/29/19 04:09 ABG pO2 126.1 mm Hg (80.0-90.0) H 12/29/19 04:09 ABG HCO3 29.2 mmol/L (20.0-26.0) H 12/29/19 04:09 ABG O2 Saturation 98.5 % (95.0-99.0) 12/29/19 04:09 Calcium 9.1 mg/dL (8.4-10.2) 12/29/19 04:59 Phosphorus 3.70 mg/dL (2.5-4.5) 12/27/19 03:48 Magnesium 2.70 mg/dL (1.7-2.3) H 12/27/19 03:48 Urine Creatinine < 4.2 mg/dL (0.1-20.0) 12/25/19 16:45 Urine Sodium 10 mmol/L 12/25/19 16:45 Urine Total Protein < 4 mg/dL (5-11.8) L 12/25/19 16:45 - Allied health notes Allied health notes reviewed: nursing Medications & Allergies - Medications Allergies/Adverse Reactions: Allergies No Known Allergies Allergy (Unverified 12/19/19 01:31) Home Medications: Home Medications Medication Instructions Recorded Confirmed Last Taken Type Ipratropium/Albuterol Sulfate 1 ampul TIDRT #90 ampul.neb 06/02/19 12/28/19 Unknown Rx [DUONEB *Not for PRN Use*] Aspirin [Aspirin BABY CHEW TAB] 81 mg PO DAILY 06/03/19 12/28/19 3 Days Ago History ~05/31/19 Desmopressin [Ddavp] 0.2 mg PO BID 06/03/19 12/28/19 3 Days Ago History ~05/31/19 Digoxin [Lanoxin] 0.125 mg PO DAILY 06/03/19 12/28/19 3 Days Ago History ~05/31/19 Folic Acid 100 mg PO DAILY 06/03/19 12/28/19 3 Days Ago History ~05/31/19 Furosemide [Lasix TAB] 40 mg PO QDAY 06/03/19 12/28/19 3 Days Ago History ~05/31/19 Insulin Lispro [Humalog 100 4 units SQ AC 06/03/19 12/28/19 3 Days Ago History UNITS/ML Kwikpen] ~05/31/19 Levothyroxine [Synthroid] 88 mcg PO QAM 06/03/19 12/28/19 3 Days Ago History ~05/31/19 Metformin HCl [metFORMIN] 1,000 mg PO BID 06/03/19 12/28/19 3 Days Ago History ~05/31/19 Potassium Chloride [K-Dur] 20 meq PO QDAY 06/03/19 12/28/19 3 Days Ago History ~05/31/19 carvediloL [Coreg] 6.25 mg PO BID 06/03/19 12/28/19 3 Days Ago History ~05/31/19 Famotidine [Pepcid] 20 mg PO QDAY #30 tablet 06/06/19 12/28/19 Unknown Rx Insulin NPH/Regular [NovoLIN 70/30] 50 unit SUB-Q BIDDIAB #100 units 06/06/19 12/28/19 Unknown Rx Active Medications: Generic Name Dose Route Start Last Admin Trade Name Freq PRN Reason Stop Dose Admin Albuterol/Ipratropium 1 ampul 12/18/19 14:00 12/29/19 07:29 Duoneb *Not For Prn Use* IH 1 ampul TIDRT SHANEL Administration Lipase/Protease/Amylase 1 each 12/19/19 08:29 Pancrecorry Cabrera 10,500 Unit FEEDTUBE PRN PRN For Clogged Feeding Tube Aspirin 81 mg 12/19/19 10:00 12/29/19 09:12 Baby Aspirin PO 81 mg DAILY SHANEL Administration Famotidine 20 mg 12/20/19 10:00 12/29/19 09:12 Pepcid PO 20 mg BID SHANEL Administration Fentanyl 50 mcg 12/27/19 16:57 Sublimaze IV Q10MIN PRN ANALGESIA Folic Acid 1 mg 12/19/19 10:00 12/29/19 09:12 Folvite PO 1 mg DAILY SHANEL Administration Furosemide 20 mg 12/28/19 14:00 12/29/19 09:13 Lasix IV 01/01/20 10:01 20 mg DAILY SHANEL Administration Heparin Sodium (Porcine) 5,000 unit 12/18/19 22:00 12/28/19 21:06 Heparin SUB-Q 5,000 unit Q12HR SHANEL Administration Hydrophilic Ointment 1 applic 12/18/19 12:35 Vaseline Lip Therapy TP Q2HR PRN Dry Lips Dextrose 1,000 mls @ 50 mls/hr 12/27/19 14:00 12/29/19 02:36 D5w IV 12/30/19 09:59 50 mls/hr DIRECT SHANEL Administration Fentanyl Citrate 2,000 mcg in 100 mls @ 5.85 mls/hr 12/27/19 17:00 12/28/19 21:06 Fentanyl Drip Premix IV Infused TITR SHANEL Titration Protocol 1 MCG/KG/HR Norepinephrine 4 mg in 250 mls @ 7.5 mls/hr 12/28/19 15:00 12/29/19 09:13 Levophed Drip 4 Mg/Ns 250 Ml IV 12 mcg/min TITR SHANEL 45 mls/hr Administration Protocol 2 MCG/MIN Insulin Glargine 10 units 12/27/19 22:00 12/28/19 21:13 Lantus SUB-Q 10 units QHS SHANEL Administration Insulin Human Lispro 0 unit 12/20/19 00:00 12/29/19 06:02 Humalog SUB-Q 4 unit Q6HR SHANEL Administration Protocol Levothyroxine Sodium 88 mcg 12/19/19 06:00 12/29/19 06:04 Synthroid PO 88 mcg QAM@0600 SHANEL Administration Multi-Ingred Cream/Lotion/Oil/Oint 1 applic 12/18/19 12:35 Artificial Tears Ophth Oint OU Q4HR PRN Dry Eye(s) Potassium Chloride 20 meq 12/19/19 10:00 12/29/19 09:12 Potassium Chloride FEEDTUBE 20 meq QDAY SHANEL Administration Potassium Chloride 40 meq 12/29/19 10:00 Potassium Chloride FEEDTUBE QDAY SHANEL Simple Syrup 15 ml 12/19/19 08:29 Simple Syrup FEEDTUBE PRN PRN Hypoglycemia Simple Syrup 30 ml 12/19/19 08:29 Simple Syrup FEEDTUBE PRN PRN Hypoglycemia Sodium Bicarbonate 325 mg 12/19/19 08:29 Sodium Bicarbonate FEEDTUBE PRN PRN For Clogged Feeding Tube Sodium Chloride 10 ml 12/18/19 22:00 12/29/19 09:13 Sodium Chloride Flush Syringe 10 Ml IV 10 ml BID SHANEL Administration Sodium Chloride 10 ml 12/18/19 13:31 Sodium Chloride Flush Syringe 10 Ml IV PRN PRN LINE FLUSH
[2019-12-29] MEDS: ACETAMINOPHEN 325 MG/10.15 ML ORAL LIQD UNIT DOSE PO PRN (09:26)
[2019-12-29] MEDS: POTASSIUM CHLORIDE 10 MEQ 10 MEQ/100 ML BAG IV SCH ×2 (10:44→13:29)
--- NOTE | 2019-12-29 11:35 | Progress Note ---
Assessment and Plan Acute Hypoxemic Respiratory Failure Severe Sepsis with Shock Bilateral Pneumonia PUI COVID-19 Morbid Obesity H/O CHF JOE - begin lasix 20 mg IV daily X 5 days re: CHF - get 2D ECHO - replace serum phosphorus - wean vasopressors for MAP > 65 mmHg - discontinue Dopamine and begin Levophed - continue care as [id number] otherwise; - Daily SAT and SBT assessment as tolerated - accuchecks with glycemic control per SSI (While critically ill target blood glucose of 140-180 mg/dL; avoid hypoglycemia) - sedation for target RASS 0 to -1 - continue to wean supplemental oxygen for target O2 sat's > 92% acutely - continue bronchodilators with pulmonary hygiene per RT - VAP bundle addressed - lung protective strategies - wean per pulmonary driven protocols otherwise - continue to avoid benzodiazepine's, reduce the possibility of delirium - complete AB's per ID rec's (Rocephin) - prn analgesia per CPOT score - Maintenance of sleep-wake cycle - continue to avoid benzodiazepine's, reduce the possibility of delirium - continue enteral nutritional support at goal rate as tolerated - G.I. & VTE prophylaxis - PT/OT/ROM exercises - continue mobility protocols for pressure ulcer prophylaxis - repeat COVID-19 test negative - continue aspiration precautions - continue accuchecks with glycemic control per SSI (While critically ill target blood glucose of 140-180 mg/dL; avoid hypoglycemia) - Monitor hemodynamics closely - continue other care per attending / other consultants - discharge planning ongoing concurrently - LTAC evaluation requested .... Re-evaluate in am & prn CONDITION: CRITICAL PROGNOSIS: GUARDED CODE STATUS: FULL CODE The high probability of a clinically significant, sudden or life-threatening deterioration of the [respiratory, cardiovascular, GI & neurologic] system(s) required my full and direct attention, intervention and personal management. The aggregate critical care time was [35] minutes without overlap. Time includes spent on; [x] Data Review and interpretation [x] Patient assessment and monitoring of vital signs [x] Documentation [x] Medication orders and management Subjective Date of service: 12/29/19 Principal diagnosis: Ac. Hypoxemic Resp Failure; Septic Shock; Magdiel. PNA; PUI COVID-19; CHF; JOE Interval history: Patient is seen today for: Acute Hypoxemic Respiratory Failure; Severe Sepsis with Shock; Bilateral Pneumonia; PUI COVID-19; Morbid Obesity; H/O CHF; JOE Seen and examined at bedside; 24hour events reviewed; nursing and respiratory ca re staff consulted; no adverse overnight events reported to me; resting peacefully in bed; intubated overnight and now on vasopressors; no emesis or overt aspiration; no new issues otherwise Objective Vital Signs - 12hr 12/28/19 12/29/19 12/29/19 23:43 00:00 00:16 Temperature 99.5 F Pulse Rate 83 91 H Pulse Rate [ Bilateral] Respiratory 26 H Rate Respiratory Rate [Bilateral ] Blood Pressure 105/56 99/63 O2 Sat by Pulse 96 98 Oximetry 12/29/19 12/29/19 12/29/19 00:30 00:44 01:00 Temperature Pulse Rate 89 90 86 Pulse Rate [ Bilateral] Respiratory 26 H 26 H Rate Respiratory Rate [Bilateral ] Blood Pressure 106/56 110/60 O2 Sat by Pulse 98 Oximetry 12/29/19 12/29/19 12/29/19 01:30 02:00 02:30 Temperature Pulse Rate 97 H 103 H 86 Pulse Rate [ Bilateral] Respiratory 26 H 26 H 25 H Rate Respiratory Rate [Bilateral ] Blood Pressure 102/58 85/43 100/45 O2 Sat by Pulse 99 99 100 Oximetry 12/29/19 12/29/19 12/29/19 03:00 03:30 03:52 Temperature Pulse Rate 87 88 89 Pulse Rate [ Bilateral] Respiratory 26 H 22 Rate Respiratory Rate [Bilateral ] Blood Pressure 113/50 102/55 111/57 O2 Sat by Pulse 100 100 99 Oximetry 12/29/19 12/29/19 12/29/19 04:00 04:30 05:00 Temperature 100.8 F H Pulse Rate 92 H 90 88 Pulse Rate [ Bilateral] Respiratory 26 H 26 H 23 Rate Respiratory Rate [Bilateral ] Blood Pressure 102/54 96/52 106/56 O2 Sat by Pulse 99 98 98 Oximetry 12/29/19 12/29/19 12/29/19 05:30 06:00 06:30 Temperature Pulse Rate 93 H 94 H 96 H Pulse Rate [ Bilateral] Respiratory 26 H 22 22 Rate Respiratory Rate [Bilateral ] Blood Pressure 97/53 94/53 98/50 O2 Sat by Pulse 97 98 94 Oximetry 12/29/19 12/29/19 12/29/19 07:00 07:24 07:30 Temperature Pulse Rate 99 H 94 H 102 H Pulse Rate [ 93 H Bilateral] Respiratory 22 20 Rate Respiratory 24 Rate [Bilateral ] Blood Pressure 96/50 94/53 90/57 O2 Sat by Pulse 94 98 95 Oximetry 12/29/19 12/29/19 12/29/19 08:00 08:30 09:00 Temperature 102.8 F H Pulse Rate 99 H 98 H 100 H Pulse Rate [ Bilateral] Respiratory 22 21 22 Rate Respiratory Rate [Bilateral ] Blood Pressure 88/50 97/52 97/46 O2 Sat by Pulse 99 95 93 Oximetry 12/29/19 12/29/19 12/29/19 09:30 10:00 11:13 Temperature Pulse Rate 98 H 100 H 100 H Pulse Rate [ Bilateral] Respiratory 21 22 Rate Respiratory Rate [Bilateral ] Blood Pressure 98/50 100/51 100/51 O2 Sat by Pulse 93 93 93 Oximetry Constitutional: no acute distress, alert, appears uncomfortable (elderly obese AAM with mildly increrased respiratory effort at rest) Eyes: non-icteric ENT: oropharynx moist, other Neck: supple, no lymphadenopathy, no JVD Effort: mildly labored Ascultation: Bilateral: diminished breath sounds, rhonchi Percussion: Bilateral: not dull Cardiovascular: regular rate and rhythm, other (S1,S2) Gastrointestinal: normoactive bowel sounds, soft, non-tender, other (protuberant) Integumentary: rash (stasis dermatyitis) Extremities: no cyanosis, pink and warm, pulses normal, no ischemia or petechiae, edema (trace) Neurologic: normal mental status, non-focal exam, pupils equal and round, CN II- XII normal, motor strength normal and (obeys simple commands) Psychiatric: mood appropriate, affect normal CBC and BMP: 12/29/19 04:59 12/29/19 04:59 ABG, PT/INR, D-dimer: ABG ABG pH 7.473 pH Units (7.350-7.450) H 12/29/19 04:09 ABG pCO2 40.8 mm Hg 12/29/19 04:09 ABG pO2 126.1 mm Hg (80.0-90.0) H 12/29/19 04:09 ABG O2 Saturation 98.5 % (95.0-99.0) 12/29/19 04:09 PT/INR, D-dimer PT 14.0 Sec. (12.2-14.9) 12/18/19 14:45 INR 1.10 (0.87-1.13) 12/18/19 14:45 D-Dimer 534.45 ng/mlDDU (0-234) H 12/18/19 14:45 Abnormal lab findings: Abnormal Labs 12/18/19 12/18/19 12/18/19 12:23 14:45 14:45 WBC Hgb 10.4 L Hct 35.2 L MCV MCH 25 L MCHC 30 L RDW 18.8 H Lymph % (Auto) [place] % (Auto) 11.6 H Eos % (Auto) 4.8 H Lymph # [place] # 1.0 H Seg Neutrophils % Monocytes % (Manual) Monocytes # (Manual) D-Dimer ABG pH ABG pO2 ABG HCO3 ABG O2 Saturation ABG Base Excess ABG Hemoglobin Oxyhemoglobin Sodium Potassium Chloride Carbon Dioxide BUN Creatinine Glucose POC Glucose 328 H Lactic Acid Calcium Magnesium AST ALT Lactate Dehydrogenase Total Creatine Kinase 40 L C-Reactive Protein Albumin Urine WBC (Auto) Urine Total Protein Digoxin Salicylates Acetaminophen 12/18/19 12/18/19 12/18/19 14:45 14:45 14:45 WBC Hgb Hct MCV MCH MCHC RDW Lymph % (Auto) [place] % (Auto) Eos % (Auto) Lymph # [place] # Seg Neutrophils % Monocytes % (Manual) Monocytes # (Manual) D-Dimer 534.45 H ABG pH ABG pO2 ABG HCO3 ABG O2 Saturation ABG Base Excess ABG Hemoglobin Oxyhemoglobin Sodium 156 H Potassium Chloride 112.3 H Carbon Dioxide 31 H BUN 32 H Creatinine Glucose 328 H POC Glucose Lactic Acid Calcium Magnesium AST ALT Lactate Dehydrogenase 235 H Total Creatine Kinase C-Reactive Protein 8.50 H Albumin 3.6 L Urine WBC (Auto) Urine Total Protein Digoxin 0.3 L Salicylates < 0.3 L Acetaminophen 12/18/19 12/18/19 12/18/19 14:45 14:45 16:00 WBC Hgb Hct MCV MCH MCHC RDW Lymph % (Auto) [place] % (Auto) Eos % (Auto) Lymph # [place] # Seg Neutrophils % Monocytes % (Manual) Monocytes # (Manual) D-Dimer ABG pH ABG pO2 69.8 L ABG HCO3 31.8 H ABG O2 Saturation ABG Base Excess 5.4 H ABG Hemoglobin 10.0 L Oxyhemoglobin 92.9 L Sodium Potassium Chloride Carbon Dioxide BUN Creatinine Glucose 314 H POC Glucose Lactic Acid Calcium Magnesium AST ALT Lactate Dehydrogenase 236 H Total Creatine Kinase C-Reactive Protein 8.40 H Albumin Urine WBC (Auto) Urine Total Protein Digoxin Salicylates Acetaminophen < 5.0 L 12/18/19 12/18/19 12/18/19 16:35 18:30 22:56 WBC Hgb Hct MCV MCH MCHC RDW Lymph % (Auto) [place] % (Auto) Eos % (Auto) Lymph # [place] # Seg Neutrophils % Monocytes % (Manual) Monocytes # (Manual) D-Dimer ABG pH ABG pO2 ABG HCO3 ABG O2 Saturation ABG Base Excess ABG Hemoglobin Oxyhemoglobin Sodium Potassium Chloride Carbon Dioxide BUN Creatinine Glucose POC Glucose 310 H 353 H Lactic Acid 2.50 H* Calcium Magnesium AST ALT Lactate Dehydrogenase Total Creatine Kinase C-Reactive Protein Albumin Urine WBC (Auto) Urine Total Protein Digoxin Salicylates Acetaminophen 12/19/19 12/19/19 12/19/19 04:13 04:13 06:00 WBC Hgb 10.0 L Hct 34.2 L MCV MCH 25 L MCHC 29 L RDW 19.0 H Lymph % (Auto) [place] % (Auto) 10.1 H Eos % (Auto) Lymph # [place] # 1.1 H Seg Neutrophils % 71.8 H Monocytes % (Manual) Monocytes # (Manual) D-Dimer ABG pH ABG pO2 186.5 H ABG HCO3 27.8 H ABG O2 Saturation 99.1 H ABG Base Excess ABG Hemoglobin 10.4 L Oxyhemoglobin Sodium 157 H Potassium Chloride 119.1 H Carbon Dioxide BUN 26 H Creatinine Glucose 302 H POC Glucose Lactic Acid Calcium 7.9 L Magnesium AST 85 H ALT 61 H Lactate Dehydrogenase Total Creatine Kinase C-Reactive Protein Albumin 3.0 L Urine WBC (Auto) Urine Total Protein Digoxin Salicylates Acetaminophen 12/19/19 12/19/19 12/19/19 08:30 11:55 16:50 WBC Hgb Hct MCV MCH MCHC RDW Lymph % (Auto) [place] % (Auto) Eos % (Auto) Lymph # [place] # Seg Neutrophils % Monocytes % (Manual) Monocytes # (Manual) D-Dimer ABG pH ABG pO2 ABG HCO3 ABG O2 Saturation ABG Base Excess ABG Hemoglobin Oxyhemoglobin Sodium Potassium Chloride Carbon Dioxide BUN Creatinine Glucose POC Glucose 264 H 251 H Lactic Acid Calcium Magnesium AST ALT Lactate Dehydrogenase Total Creatine Kinase C-Reactive Protein Albumin Urine WBC (Auto) 7.0 H Urine Total Protein Digoxin Salicylates Acetaminophen 12/19/19 12/19/19 12/20/19 17:41 23:42 03:35 WBC Hgb Hct MCV MCH MCHC RDW Lymph % (Auto) [place] % (Auto) Eos % (Auto) Lymph # [place] # Seg Neutrophils % Monocytes % (Manual) Monocytes # (Manual) D-Dimer ABG pH ABG pO2 ABG HCO3 27.7 H ABG O2 Saturation ABG Base Excess ABG Hemoglobin 11.6 L Oxyhemoglobin 94.9 L Sodium Potassium Chloride Carbon Dioxide BUN Creatinine Glucose POC Glucose 180 H 205 H Lactic Acid Calcium Magnesium AST ALT Lactate Dehydrogenase Total Creatine Kinase C-Reactive Protein Albumin Urine WBC (Auto) Urine Total Protein Digoxin Salicylates Acetaminophen 12/20/19 12/20/19 12/20/19 04:45 04:45 05:27 WBC Hgb 9.4 L Hct 31.4 L MCV MCH 25 L MCHC 30 L RDW 19.4 H Lymph % (Auto) [place] % (Auto) 10.2 H Eos % (Auto) 6.0 H Lymph # 0.9 L [place] # Seg Neutrophils % Monocytes % (Manual) Monocytes # (Manual) D-Dimer ABG pH ABG pO2 ABG HCO3 ABG O2 Saturation ABG Base Excess ABG Hemoglobin Oxyhemoglobin Sodium 153 H Potassium Chloride 114.6 H Carbon Dioxide BUN Creatinine Glucose 170 H POC Glucose 188 H Lactic Acid Calcium 7.9 L Magnesium AST ALT Lactate Dehydrogenase Total Creatine Kinase C-Reactive Protein Albumin Urine WBC (Auto) Urine Total Protein Digoxin Salicylates Acetaminophen 12/20/19 12/20/19 12/21/19 12:26 18:20 00:20 WBC Hgb Hct MCV MCH MCHC RDW Lymph % (Auto) [place] % (Auto) Eos % (Auto) Lymph # [place] # Seg Neutrophils % Monocytes % (Manual) Monocytes # (Manual) D-Dimer ABG pH ABG pO2 ABG HCO3 ABG O2 Saturation ABG Base Excess ABG Hemoglobin Oxyhemoglobin Sodium Potassium Chloride Carbon Dioxide BUN Creatinine Glucose POC Glucose 200 H 263 H 218 H Lactic Acid Calcium Magnesium AST ALT Lactate Dehydrogenase Total Creatine Kinase C-Reactive Protein Albumin Urine WBC (Auto) Urine Total Protein Digoxin Salicylates Acetaminophen 12/21/19 12/21/19 12/21/19 04:38 05:26 12:35 WBC Hgb Hct MCV MCH MCHC RDW Lymph % (Auto) [place] % (Auto) Eos % (Auto) Lymph # [place] # Seg Neutrophils % Monocytes % (Manual) Monocytes # (Manual) D-Dimer ABG pH ABG pO2 ABG HCO3 ABG O2 Saturation ABG Base Excess ABG Hemoglobin Oxyhemoglobin Sodium 149 H Potassium 3.5 L Chloride 110.5 H Carbon Dioxide BUN Creatinine Glucose 158 H POC Glucose 193 H 193 H Lactic Acid Calcium Magnesium AST ALT Lactate Dehydrogenase Total Creatine Kinase C-Reactive Protein Albumin Urine WBC (Auto) Urine Total Protein Digoxin Salicylates Acetaminophen 12/21/19 12/22/19 12/22/19 18:29 00:03 05:15 WBC Hgb 10.3 L Hct 34.7 L MCV MCH 25 L MCHC 30 L RDW 19.4 H Lymph % (Auto) 9.0 L [place] % (Auto) 12.3 H Eos % (Auto) 5.0 H Lymph # 0.5 L [place] # Seg Neutrophils % 73.2 H Monocytes % (Manual) Monocytes # (Manual) D-Dimer ABG pH ABG pO2 ABG HCO3 ABG O2 Saturation ABG Base Excess ABG Hemoglobin Oxyhemoglobin Sodium Potassium Chloride Carbon Dioxide BUN Creatinine Glucose POC Glucose 186 H 143 H Lactic Acid Calcium Magnesium AST ALT Lactate Dehydrogenase Total Creatine Kinase C-Reactive Protein Albumin Urine WBC (Auto) Urine Total Protein Digoxin Salicylates Acetaminophen 12/22/19 12/22/19 12/22/19 05:15 06:02 12:13 WBC Hgb Hct MCV MCH MCHC RDW Lymph % (Auto) [place] % (Auto) Eos % (Auto) Lymph # [place] # Seg Neutrophils % Monocytes % (Manual) Monocytes # (Manual) D-Dimer ABG pH ABG pO2 ABG HCO3 ABG O2 Saturation ABG Base Excess ABG Hemoglobin Oxyhemoglobin Sodium 152 H Potassium Chloride 113.5 H Carbon Dioxide BUN Creatinine Glucose 126 H POC Glucose 144 H 159 H Lactic Acid Calcium Magnesium AST ALT Lactate Dehydrogenase Total Creatine Kinase C-Reactive Protein Albumin Urine WBC (Auto) Urine Total Protein Digoxin Salicylates Acetaminophen 12/22/19 12/22/19 12/23/19 18:03 23:50 05:27 WBC Hgb Hct MCV MCH MCHC RDW Lymph % (Auto) [place] % (Auto) Eos % (Auto) Lymph # [place] # Seg Neutrophils % Monocytes % (Manual) Monocytes # (Manual) D-Dimer ABG pH ABG pO2 ABG HCO3 ABG O2 Saturation ABG Base Excess ABG Hemoglobin Oxyhemoglobin Sodium Potassium Chloride Carbon Dioxide BUN Creatinine Glucose POC Glucose 140 H 227 H 185 H Lactic Acid Calcium Magnesium AST ALT Lactate Dehydrogenase Total Creatine Kinase C-Reactive Protein Albumin Urine WBC (Auto) Urine Total Protein Digoxin Salicylates Acetaminophen 12/23/19 12/23/19 12/23/19 12:13 16:05 16:40 WBC Hgb Hct MCV MCH MCHC RDW Lymph % (Auto) [place] % (Auto) Eos % (Auto) Lymph # [place] # Seg Neutrophils % Monocytes % (Manual) Monocytes # (Manual) D-Dimer ABG pH 7.259 L ABG pO2 76.2 L ABG HCO3 30.6 H ABG O2 Saturation 94.6 L ABG Base Excess ABG Hemoglobin 11.5 L Oxyhemoglobin 92.2 L Sodium 163 H* D Potassium 3.4 L Chloride 120.1 H Carbon Dioxide BUN Creatinine Glucose 162 H POC Glucose 132 H Lactic Acid Calcium Magnesium AST ALT Lactate Dehydrogenase Total Creatine Kinase C-Reactive Protein Albumin Urine WBC (Auto) Urine Total Protein Digoxin Salicylates Acetaminophen 12/23/19 12/24/19 12/24/19 17:53 00:48 04:20 WBC Hgb Hct MCV MCH MCHC RDW Lymph % (Auto) [place] % (Auto) Eos % (Auto) Lymph # [place] # Seg Neutrophils % Monocytes % (Manual) Monocytes # (Manual) D-Dimer ABG pH ABG pO2 ABG HCO3 30.4 H ABG O2 Saturation ABG Base Excess 3.9 H ABG Hemoglobin 10.3 L Oxyhemoglobin 94.4 L Sodium Potassium Chloride Carbon Dioxide BUN Creatinine Glucose POC Glucose 180 H 174 H Lactic Acid Calcium Magnesium AST ALT Lactate Dehydrogenase Total Creatine Kinase C-Reactive Protein Albumin Urine WBC (Auto) Urine Total Protein Digoxin Salicylates Acetaminophen 12/24/19 12/24/19 12/24/19 04:53 04:53 11:50 WBC Hgb 9.7 L Hct 33.2 L MCV MCH 25 L MCHC 29 L RDW 20.1 H Lymph % (Auto) [place] % (Auto) Eos % (Auto) Lymph # [place] # Seg Neutrophils % Monocytes % (Manual) 15.0 H Monocytes # (Manual) 0.9 H D-Dimer ABG pH ABG pO2 ABG HCO3 ABG O2 Saturation ABG Base Excess ABG Hemoglobin Oxyhemoglobin Sodium 163 H* Potassium 3.2 L Chloride 122.6 H Carbon Dioxide BUN Creatinine Glucose 168 H POC Glucose 190 H Lactic Acid Calcium Magnesium AST ALT Lactate Dehydrogenase Total Creatine Kinase C-Reactive Protein Albumin Urine WBC (Auto) Urine Total Protein Digoxin Salicylates Acetaminophen 12/24/19 12/24/19 12/24/19 15:00 16:28 21:15 WBC Hgb Hct MCV MCH MCHC RDW Lymph % (Auto) [place] % (Auto) Eos % (Auto) Lymph # [place] # Seg Neutrophils % Monocytes % (Manual) Monocytes # (Manual) D-Dimer ABG pH ABG pO2 ABG HCO3 ABG O2 Saturation ABG Base Excess ABG Hemoglobin Oxyhemoglobin Sodium 165 H* D 163 H* Potassium Chloride Carbon Dioxide BUN Creatinine Glucose POC Glucose 160 H Lactic Acid Calcium Magnesium AST ALT Lactate Dehydrogenase Total Creatine Kinase C-Reactive Protein Albumin Urine WBC (Auto) Urine Total Protein Digoxin Salicylates Acetaminophen 12/25/19 12/25/19 12/25/19 00:31 05:38 05:46 WBC Hgb 9.7 L Hct 32.5 L MCV MCH 25 L MCHC 30 L RDW 19.4 H Lymph % (Auto) [place] % (Auto) Eos % (Auto) Lymph # [place] # Seg Neutrophils % Monocytes % (Manual) Monocytes # (Manual) D-Dimer ABG pH ABG pO2 ABG HCO3 ABG O2 Saturation ABG Base Excess ABG Hemoglobin Oxyhemoglobin Sodium Potassium Chloride Carbon Dioxide BUN Creatinine Glucose POC Glucose 182 H 194 H Lactic Acid Calcium Magnesium AST ALT Lactate Dehydrogenase Total Creatine Kinase C-Reactive Protein Albumin Urine WBC (Auto) Urine Total Protein Digoxin Salicylates Acetaminophen 12/25/19 12/25/19 12/25/19 05:46 11:35 11:38 WBC Hgb Hct MCV MCH MCHC RDW Lymph % (Auto) [place] % (Auto) Eos % (Auto) Lymph # [place] # Seg Neutrophils % Monocytes % (Manual) Monocytes # (Manual) D-Dimer ABG pH 7.330 L ABG pO2 65.7 L ABG HCO3 32.6 H ABG O2 Saturation 92.5 L ABG Base Excess 5.3 H ABG Hemoglobin 10.4 L Oxyhemoglobin 90.0 L Sodium 166 H* Potassium 2.9 L* Chloride 124.5 H Carbon Dioxide BUN Creatinine Glucose 190 H POC Glucose 192 H Lactic Acid Calcium Magnesium AST ALT Lactate Dehydrogenase Total Creatine Kinase C-Reactive Protein Albumin Urine WBC (Auto) Urine Total Protein Digoxin Salicylates Acetaminophen 12/25/19 12/25/19 12/25/19 13:01 16:45 17:20 WBC Hgb Hct MCV MCH MCHC RDW Lymph % (Auto) [place] % (Auto) Eos % (Auto) Lymph # [place] # Seg Neutrophils % Monocytes % (Manual) Monocytes # (Manual) D-Dimer ABG pH 7.296 L ABG pO2 101.5 H ABG HCO3 33.2 H ABG O2 Saturation ABG Base Excess 5.3 H ABG Hemoglobin 9.6 L Oxyhemoglobin 94.6 L Sodium 174 H* Potassium Chloride Carbon Dioxide BUN Creatinine Glucose POC Glucose Lactic Acid Calcium Magnesium AST ALT Lactate Dehydrogenase Total Creatine Kinase C-Reactive Protein Albumin Urine WBC (Auto) Urine Total Protein < 4 L Digoxin Salicylates Acetaminophen 12/25/19 12/25/19 12/26/19 17:48 18:50 00:43 WBC Hgb Hct MCV MCH MCHC RDW Lymph % (Auto) [place] % (Auto) Eos % (Auto) Lymph # [place] # Seg Neutrophils % Monocytes % (Manual) Monocytes # (Manual) D-Dimer ABG pH ABG pO2 ABG HCO3 ABG O2 Saturation ABG Base Excess ABG Hemoglobin Oxyhemoglobin Sodium 166 H* 164 H* Potassium Chloride 127.3 H Carbon Dioxide BUN Creatinine Glucose 220 H POC Glucose 252 H Lactic Acid Calcium Magnesium AST ALT Lactate Dehydrogenase Total Creatine Kinase C-Reactive Protein Albumin Urine WBC (Auto) Urine Total Protein Digoxin Salicylates Acetaminophen 12/26/19 12/26/19 12/26/19 05:31 08:07 08:07 WBC 4.3 L Hgb 9.6 L Hct 32.1 L MCV MCH 26 L MCHC 30 L RDW 20.5 H Lymph % (Auto) [place] % (Auto) Eos % (Auto) Lymph # [place] # Seg Neutrophils % Monocytes % (Manual) Monocytes # (Manual) D-Dimer ABG pH ABG pO2 ABG HCO3 ABG O2 Saturation ABG Base Excess ABG Hemoglobin Oxyhemoglobin Sodium 162 H* Potassium Chloride 122.1 H Carbon Dioxide BUN Creatinine Glucose 247 H POC Glucose 187 H Lactic Acid Calcium Magnesium AST ALT Lactate Dehydrogenase Total Creatine Kinase C-Reactive Protein Albumin Urine WBC (Auto) Urine Total Protein Digoxin Salicylates Acetaminophen 12/26/19 12/26/19 12/26/19 08:07 12:20 16:25 WBC Hgb Hct MCV MCH MCHC RDW Lymph % (Auto) [place] % (Auto) Eos % (Auto) Lymph # [place] # Seg Neutrophils % Monocytes % (Manual) Monocytes # (Manual) D-Dimer ABG pH 7.290 L ABG pO2 73.2 L ABG HCO3 33.2 H ABG O2 Saturation 94.9 L ABG Base Excess 5.2 H ABG Hemoglobin 10.0 L Oxyhemoglobin 92.5 L Sodium 159 H Potassium Chloride Carbon Dioxide BUN Creatinine Glucose POC Glucose 234 H Lactic Acid Calcium Magnesium AST ALT Lactate Dehydrogenase Total Creatine Kinase C-Reactive Protein Albumin Urine WBC (Auto) Urine Total Protein Digoxin Salicylates Acetaminophen 12/26/19 12/26/19 12/26/19 17:33 22:35 23:30 WBC Hgb Hct MCV MCH MCHC RDW Lymph % (Auto) [place] % (Auto) Eos % (Auto) Lymph # [place] # Seg Neutrophils % Monocytes % (Manual) Monocytes # (Manual) D-Dimer ABG pH ABG pO2 ABG HCO3 ABG O2 Saturation ABG Base Excess ABG Hemoglobin Oxyhemoglobin Sodium Potassium Chloride Carbon Dioxide BUN Creatinine Glucose POC Glucose 244 H 208 H 287 H Lactic Acid Calcium Magnesium AST ALT Lactate Dehydrogenase Total Creatine Kinase C-Reactive Protein Albumin Urine WBC (Auto) Urine Total Protein Digoxin Salicylates Acetaminophen 12/27/19 12/27/19 12/27/19 03:48 03:48 03:48 WBC Hgb 10.1 L Hct 35.4 L MCV MCH 25 L MCHC 29 L RDW 20.1 H Lymph % (Auto) [place] % (Auto) Eos % (Auto) Lymph # [place] # Seg Neutrophils % Monocytes % (Manual) Monocytes # (Manual) D-Dimer ABG pH ABG pO2 ABG HCO3 ABG O2 Saturation ABG Base Excess ABG Hemoglobin Oxyhemoglobin Sodium 160 H Potassium Chloride 118.8 H Carbon Dioxide 33 H BUN Creatinine Glucose 217 H POC Glucose Lactic Acid Calcium Magnesium 2.70 H AST ALT Lactate Dehydrogenase Total Creatine Kinase C-Reactive Protein Albumin Urine WBC (Auto) Urine Total Protein Digoxin Salicylates Acetaminophen 12/27/19 12/27/19 12/27/19 05:50 11:58 16:05 WBC Hgb Hct MCV MCH MCHC RDW Lymph % (Auto) [place] % (Auto) Eos % (Auto) Lymph # [place] # Seg Neutrophils % Monocytes % (Manual) Monocytes # (Manual) D-Dimer ABG pH 7.180 L* ABG pO2 73.6 L ABG HCO3 34.8 H ABG O2 Saturation 92.7 L ABG Base Excess 3.8 H ABG Hemoglobin 12.0 L Oxyhemoglobin 90.2 L Sodium Potassium Chloride Carbon Dioxide BUN Creatinine Glucose POC Glucose 224 H 218 H Lactic Acid Calcium Magnesium AST ALT Lactate Dehydrogenase Total Creatine Kinase C-Reactive Protein Albumin Urine WBC (Auto) Urine Total Protein Digoxin Salicylates Acetaminophen 12/27/19 12/27/19 12/27/19 18:05 19:50 21:53 WBC Hgb Hct MCV MCH MCHC RDW Lymph % (Auto) [place] % (Auto) Eos % (Auto) Lymph # [place] # Seg Neutrophils % Monocytes % (Manual) Monocytes # (Manual) D-Dimer ABG pH 7.328 L ABG pO2 49.9 L ABG HCO3 33.3 H ABG O2 Saturation 87.1 L ABG Base Excess 5.7 H ABG Hemoglobin 11.2 L Oxyhemoglobin 84.8 L Sodium Potassium Chloride Carbon Dioxide BUN Creatinine Glucose POC Glucose 214 H 178 H Lactic Acid Calcium Magnesium AST ALT Lactate Dehydrogenase Total Creatine Kinase C-Reactive Protein Albumin Urine WBC (Auto) Urine Total Protein Digoxin Salicylates Acetaminophen 12/28/19 12/28/19 12/28/19 00:42 04:37 04:37 WBC Hgb 9.8 L Hct 33.5 L MCV MCH 25 L MCHC 29 L RDW 21.1 H Lymph % (Auto) [place] % (Auto) Eos % (Auto) Lymph # [place] # Seg Neutrophils % Monocytes % (Manual) Monocytes # (Manual) D-Dimer ABG pH ABG pO2 ABG HCO3 ABG O2 Saturation ABG Base Excess ABG Hemoglobin Oxyhemoglobin Sodium 157 H Potassium 3.4 L Chloride 117.5 H Carbon Dioxide BUN Creatinine Glucose 193 H POC Glucose 157 H Lactic Acid Calcium Magnesium AST ALT Lactate Dehydrogenase Total Creatine Kinase C-Reactive Protein Albumin Urine WBC (Auto) Urine Total Protein Digoxin Salicylates Acetaminophen 12/28/19 12/28/19 12/28/19 04:52 05:19 12:05 WBC Hgb Hct MCV MCH MCHC RDW Lymph % (Auto) [place] % (Auto) Eos % (Auto) Lymph # [place] # Seg Neutrophils % Monocytes % (Manual) Monocytes # (Manual) D-Dimer ABG pH ABG pO2 51.7 L ABG HCO3 28.7 H ABG O2 Saturation 89.9 L ABG Base Excess 4.1 H ABG Hemoglobin 9.7 L Oxyhemoglobin 87.7 L Sodium Potassium Chloride Carbon Dioxide BUN Creatinine Glucose POC Glucose 202 H 248 H Lactic Acid Calcium Magnesium AST ALT Lactate Dehydrogenase Total Creatine Kinase C-Reactive Protein Albumin Urine WBC (Auto) Urine Total Protein Digoxin Salicylates Acetaminophen 12/28/19 12/28/19 12/28/19 18:11 21:15 23:22 WBC Hgb Hct MCV MCH MCHC RDW Lymph % (Auto) [place] % (Auto) Eos % (Auto) Lymph # [place] # Seg Neutrophils % Monocytes % (Manual) Monocytes # (Manual) D-Dimer ABG pH ABG pO2 ABG HCO3 ABG O2 Saturation ABG Base Excess ABG Hemoglobin Oxyhemoglobin Sodium Potassium Chloride Carbon Dioxide BUN Creatinine Glucose POC Glucose 226 H 217 H 227 H Lactic Acid Calcium Magnesium AST ALT Lactate Dehydrogenase Total Creatine Kinase C-Reactive Protein Albumin Urine WBC (Auto) Urine Total Protein Digoxin Salicylates Acetaminophen 12/29/19 12/29/19 12/29/19 04:09 04:59 04:59 WBC 11.1 H Hgb 9.3 L Hct 31.1 L MCV 81 L MCH 24 L MCHC 30 L RDW 19.9 H Lymph % (Auto) [place] % (Auto) Eos % (Auto) Lymph # [place] # Seg Neutrophils % Monocytes % (Manual) Monocytes # (Manual) D-Dimer ABG pH 7.473 H ABG pO2 126.1 H ABG HCO3 29.2 H ABG O2 Saturation ABG Base Excess 5.1 H ABG Hemoglobin 8.4 L Oxyhemoglobin Sodium 157 H Potassium 3.2 L Chloride 118.2 H Carbon Dioxide BUN Creatinine 1.7 H Glucose 229 H POC Glucose Lactic Acid Calcium Magnesium AST ALT Lactate Dehydrogenase Total Creatine Kinase C-Reactive Protein Albumin Urine WBC (Auto) Urine Total Protein Digoxin Salicylates Acetaminophen 12/29/19 05:15 WBC Hgb Hct MCV MCH MCHC RDW Lymph % (Auto) [place] % (Auto) Eos % (Auto) Lymph # [place] # Seg Neutrophils % Monocytes % (Manual) Monocytes # (Manual) D-Dimer ABG pH ABG pO2 ABG HCO3 ABG O2 Saturation ABG Base Excess ABG Hemoglobin Oxyhemoglobin Sodium Potassium Chloride Carbon Dioxide BUN Creatinine Glucose POC Glucose 221 H Lactic Acid Calcium Magnesium AST ALT Lactate Dehydrogenase Total Creatine Kinase C-Reactive Protein Albumin Urine WBC (Auto) Urine Total Protein Digoxin Salicylates Acetaminophen Chest x-ray: image reviewed Allied health notes reviewed: nursing
--- NOTE | 2019-12-29 12:15 | Progress Note ---
Assessment and Plan Acute Hypoxemic Respiratory Failure Severe Sepsis with Shock Bilateral Pneumonia PUI COVID-19 Morbid Obesity H/O CHF JOE - Levophed @ 14 rylan's/min - begin contact isolation - get CXR in am - potassium replaced - check am magnesium level reduce set rate to 12/min - repeat ABG at 9pm - wean vasopressors for MAP > 65 mmHg - continue care as below otherwise; - Daily SAT and SBT assessment as tolerated - accuchecks with glycemic control per SSI (While critically ill target blood glucose of 140-180 mg/dL; avoid hypoglycemia) - sedation for target RASS 0 to -1 - continue to wean supplemental oxygen for target O2 sat's > 92% acutely - continue bronchodilators with pulmonary hygiene per RT - VAP bundle addressed - lung protective strategies - wean per pulmonary driven protocols otherwise - continue to avoid benzodiazepine's, reduce the possibility of delirium - resume AB's per ID rec's - prn analgesia per CPOT score - Maintenance of sleep-wake cycle - continue to avoid benzodiazepine's, reduce the possibility of delirium - continue enteral nutritional support at goal rate as tolerated - G.I. & VTE prophylaxis - PT/OT/ROM exercises - continue mobility protocols for pressure ulcer prophylaxis - repeat COVID-19 test negative - continue aspiration precautions - continue accuchecks with glycemic control per SSI (While critically ill target blood glucose of 140-180 mg/dL; avoid hypoglycemia) - Monitor hemodynamics closely - continue other care per attending / other consultants - discharge planning ongoing concurrently - LTAC evaluation requested .... Re-evaluate in am & prn CONDITION: CRITICAL PROGNOSIS: GUARDED CODE STATUS: FULL CODE The high probability of a clinically significant, sudden or life-threatening deterioration of the [respiratory, cardiovascular, GI & neurologic] system(s) required my full and direct attention, intervention and personal management. The aggregate critical care time was [32] minutes without overlap. Time includes spent on; [x] Data Review and interpretation [x] Patient assessment and monitoring of vital signs [x] Documentation [x] Medication orders and management Subjective Date of service: 12/29/19 Principal diagnosis: Ac. Hypoxemic Resp Failure; Septic Shock; Magdiel. PNA; PUI COVID-19; CHF; JOE Interval history: Patient is seen today for: Acute Hypoxemic Respiratory Failure; Severe Sepsis with Shock; Bilateral Pneumonia; PUI COVID-19; Morbid Obesity; H/O CHF; JOE Seen and examined at bedside; 24hour events reviewed; nursing and respiratory care staff consulted; no adverse overnight events reported to me; resting peacefully in bed; remains on MVS; FiO2 down to 45% with room to wean; AMS is persistent; spiking fevers up to 102.3 now; no emesis or overt aspiration; sputum growing MRSA Objective Vital Signs - 12hr 12/29/19 12/29/19 12/29/19 00:16 00:30 00:44 Temperature Pulse Rate 91 H 89 90 Pulse Rate [ Bilateral] Respiratory 26 H Rate Respiratory Rate [Bilateral ] Blood Pressure 99/63 106/56 O2 Sat by Pulse 98 98 Oximetry 12/29/19 12/29/19 12/29/19 01:00 01:30 02:00 Temperature Pulse Rate 86 97 H 103 H Pulse Rate [ Bilateral] Respiratory 26 H 26 H 26 H Rate Respiratory Rate [Bilateral ] Blood Pressure 110/60 102/58 85/43 O2 Sat by Pulse 99 99 Oximetry 12/29/19 12/29/19 12/29/19 02:30 03:00 03:30 Temperature Pulse Rate 86 87 88 Pulse Rate [ Bilateral] Respiratory 25 H 26 H 22 Rate Respiratory Rate [Bilateral ] Blood Pressure 100/45 113/50 102/55 O2 Sat by Pulse 100 100 100 Oximetry 12/29/19 12/29/19 12/29/19 03:52 04:00 04:30 Temperature 100.8 F H Pulse Rate 89 92 H 90 Pulse Rate [ Bilateral] Respiratory 26 H 26 H Rate Respiratory Rate [Bilateral ] Blood Pressure 111/57 102/54 96/52 O2 Sat by Pulse 99 99 98 Oximetry 12/29/19 12/29/19 12/29/19 05:00 05:30 06:00 Temperature Pulse Rate 88 93 H 94 H Pulse Rate [ Bilateral] Respiratory 23 26 H 22 Rate Respiratory Rate [Bilateral ] Blood Pressure 106/56 97/53 94/53 O2 Sat by Pulse 98 97 98 Oximetry 12/29/19 12/29/19 12/29/19 06:30 07:00 07:24 Temperature Pulse Rate 96 H 99 H 94 H Pulse Rate [ Bilateral] Respiratory 22 22 Rate Respiratory Rate [Bilateral ] Blood Pressure 98/50 96/50 94/53 O2 Sat by Pulse 94 94 98 Oximetry 12/29/19 12/29/19 12/29/19 07:30 08:00 08:30 Temperature 102.8 F H Pulse Rate 102 H 99 H 98 H Pulse Rate [ 93 H Bilateral] Respiratory 20 22 21 Rate Respiratory 24 Rate [Bilateral ] Blood Pressure 90/57 88/50 97/52 O2 Sat by Pulse 95 99 95 Oximetry 12/29/19 12/29/19 12/29/19 09:00 09:30 10:00 Temperature Pulse Rate 100 H 98 H 100 H Pulse Rate [ Bilateral] Respiratory 22 21 22 Rate Respiratory Rate [Bilateral ] Blood Pressure 97/46 98/50 100/51 O2 Sat by Pulse 93 93 93 Oximetry 12/29/19 11:13 Temperature Pulse Rate 100 H Pulse Rate [ Bilateral] Respiratory Rate Respiratory Rate [Bilateral ] Blood Pressure 100/51 O2 Sat by Pulse 93 Oximetry Constitutional: no acute distress, alert, other (elderly obese AAM with mildly increrased respiratory effort at rest) Eyes: non-icteric ENT: oropharynx moist, other Neck: supple, no lymphadenopathy, no JVD Effort: mildly labored Ascultation: Bilateral: diminished breath sounds, rhonchi Percussion: Bilateral: not dull Cardiovascular: regular rate and rhythm, other (S1,S2) Gastrointestinal: normoactive bowel sounds, soft, non-tender, other (protuberant) Integumentary: rash (stasis dermatyitis) Extremities: no cyanosis, pink and warm, pulses normal, no ischemia or petechiae, edema (trace) Neurologic: normal mental status, non-focal exam, pupils equal and round, CN II- XII normal, motor strength normal and (obeys simple commands) Psychiatric: mood appropriate, affect normal CBC and BMP: 12/29/19 04:59 12/29/19 04:59 ABG, PT/INR, D-dimer: ABG ABG pH 7.473 pH Units (7.350-7.450) H 12/29/19 04:09 ABG pCO2 40.8 mm Hg 12/29/19 04:09 ABG pO2 126.1 mm Hg (80.0-90.0) H 12/29/19 04:09 ABG O2 Saturation 98.5 % (95.0-99.0) 12/29/19 04:09 PT/INR, D-dimer PT 14.0 Sec. (12.2-14.9) 12/18/19 14:45 INR 1.10 (0.87-1.13) 12/18/19 14:45 D-Dimer 534.45 ng/mlDDU (0-234) H 12/18/19 14:45 Abnormal lab findings: Abnormal Labs 12/18/19 12/18/19 12/18/19 12:23 14:45 14:45 WBC Hgb 10.4 L Hct 35.2 L MCV MCH 25 L MCHC 30 L RDW 18.8 H Lymph % (Auto) [place] % (Auto) 11.6 H Eos % (Auto) 4.8 H Lymph # [place] # 1.0 H Seg Neutrophils % Monocytes % (Manual) Monocytes # (Manual) D-Dimer ABG pH ABG pO2 ABG HCO3 ABG O2 Saturation ABG Base Excess ABG Hemoglobin Oxyhemoglobin Sodium Potassium Chloride Carbon Dioxide BUN Creatinine Glucose POC Glucose 328 H Lactic Acid Calcium Magnesium AST ALT Lactate Dehydrogenase Total Creatine Kinase 40 L C-Reactive Protein Albumin Urine WBC (Auto) Urine Total Protein Digoxin Salicylates Acetaminophen 12/18/19 12/18/19 12/18/19 14:45 14:45 14:45 WBC Hgb Hct MCV MCH MCHC RDW Lymph % (Auto) [place] % (Auto) Eos % (Auto) Lymph # [place] # Seg Neutrophils % Monocytes % (Manual) Monocytes # (Manual) D-Dimer 534.45 H ABG pH ABG pO2 ABG HCO3 ABG O2 Saturation ABG Base Excess ABG Hemoglobin Oxyhemoglobin Sodium 156 H Potassium Chloride 112.3 H Carbon Dioxide 31 H BUN 32 H Creatinine Glucose 328 H POC Glucose Lactic Acid Calcium Magnesium AST ALT Lactate Dehydrogenase 235 H Total Creatine Kinase C-Reactive Protein 8.50 H Albumin 3.6 L Urine WBC (Auto) Urine Total Protein Digoxin 0.3 L Salicylates < 0.3 L Acetaminophen 12/18/19 12/18/19 12/18/19 14:45 14:45 16:00 WBC Hgb Hct MCV MCH MCHC RDW Lymph % (Auto) [place] % (Auto) Eos % (Auto) Lymph # [place] # Seg Neutrophils % Monocytes % (Manual) Monocytes # (Manual) D-Dimer ABG pH ABG pO2 69.8 L ABG HCO3 31.8 H ABG O2 Saturation ABG Base Excess 5.4 H ABG Hemoglobin 10.0 L Oxyhemoglobin 92.9 L Sodium Potassium Chloride Carbon Dioxide BUN Creatinine Glucose 314 H POC Glucose Lactic Acid Calcium Magnesium AST ALT Lactate Dehydrogenase 236 H Total Creatine Kinase C-Reactive Protein 8.40 H Albumin Urine WBC (Auto) Urine Total Protein Digoxin Salicylates Acetaminophen < 5.0 L 12/18/19 12/18/19 12/18/19 16:35 18:30 22:56 WBC Hgb Hct MCV MCH MCHC RDW Lymph % (Auto) [place] % (Auto) Eos % (Auto) Lymph # [place] # Seg Neutrophils % Monocytes % (Manual) Monocytes # (Manual) D-Dimer ABG pH ABG pO2 ABG HCO3 ABG O2 Saturation ABG Base Excess ABG Hemoglobin Oxyhemoglobin Sodium Potassium Chloride Carbon Dioxide BUN Creatinine Glucose POC Glucose 310 H 353 H Lactic Acid 2.50 H* Calcium Magnesium AST ALT Lactate Dehydrogenase Total Creatine Kinase C-Reactive Protein Albumin Urine WBC (Auto) Urine Total Protein Digoxin Salicylates Acetaminophen 12/19/19 12/19/19 12/19/19 04:13 04:13 06:00 WBC Hgb 10.0 L Hct 34.2 L MCV MCH 25 L MCHC 29 L RDW 19.0 H Lymph % (Auto) [place] % (Auto) 10.1 H Eos % (Auto) Lymph # [place] # 1.1 H Seg Neutrophils % 71.8 H Monocytes % (Manual) Monocytes # (Manual) D-Dimer ABG pH ABG pO2 186.5 H ABG HCO3 27.8 H ABG O2 Saturation 99.1 H ABG Base Excess ABG Hemoglobin 10.4 L Oxyhemoglobin Sodium 157 H Potassium Chloride 119.1 H Carbon Dioxide BUN 26 H Creatinine Glucose 302 H POC Glucose Lactic Acid Calcium 7.9 L Magnesium AST 85 H ALT 61 H Lactate Dehydrogenase Total Creatine Kinase C-Reactive Protein Albumin 3.0 L Urine WBC (Auto) Urine Total Protein Digoxin Salicylates Acetaminophen 12/19/19 12/19/19 12/19/19 08:30 11:55 16:50 WBC Hgb Hct MCV MCH MCHC RDW Lymph % (Auto) [place] % (Auto) Eos % (Auto) Lymph # [place] # Seg Neutrophils % Monocytes % (Manual) Monocytes # (Manual) D-Dimer ABG pH ABG pO2 ABG HCO3 ABG O2 Saturation ABG Base Excess ABG Hemoglobin Oxyhemoglobin Sodium Potassium Chloride Carbon Dioxide BUN Creatinine Glucose POC Glucose 264 H 251 H Lactic Acid Calcium Magnesium AST ALT Lactate Dehydrogenase Total Creatine Kinase C-Reactive Protein Albumin Urine WBC (Auto) 7.0 H Urine Total Protein Digoxin Salicylates Acetaminophen 12/19/19 12/19/19 12/20/19 17:41 23:42 03:35 WBC Hgb Hct MCV MCH MCHC RDW Lymph % (Auto) [place] % (Auto) Eos % (Auto) Lymph # [place] # Seg Neutrophils % Monocytes % (Manual) Monocytes # (Manual) D-Dimer ABG pH ABG pO2 ABG HCO3 27.7 H ABG O2 Saturation ABG Base Excess ABG Hemoglobin 11.6 L Oxyhemoglobin 94.9 L Sodium Potassium Chloride Carbon Dioxide BUN Creatinine Glucose POC Glucose 180 H 205 H Lactic Acid Calcium Magnesium AST ALT Lactate Dehydrogenase Total Creatine Kinase C-Reactive Protein Albumin Urine WBC (Auto) Urine Total Protein Digoxin Salicylates Acetaminophen 12/20/19 12/20/19 12/20/19 04:45 04:45 05:27 WBC Hgb 9.4 L Hct 31.4 L MCV MCH 25 L MCHC 30 L RDW 19.4 H Lymph % (Auto) [place] % (Auto) 10.2 H Eos % (Auto) 6.0 H Lymph # 0.9 L [place] # Seg Neutrophils % Monocytes % (Manual) Monocytes # (Manual) D-Dimer ABG pH ABG pO2 ABG HCO3 ABG O2 Saturation ABG Base Excess ABG Hemoglobin Oxyhemoglobin Sodium 153 H Potassium Chloride 114.6 H Carbon Dioxide BUN Creatinine Glucose 170 H POC Glucose 188 H Lactic Acid Calcium 7.9 L Magnesium AST ALT Lactate Dehydrogenase Total Creatine Kinase C-Reactive Protein Albumin Urine WBC (Auto) Urine Total Protein Digoxin Salicylates Acetaminophen 12/20/19 12/20/19 12/21/19 12:26 18:20 00:20 WBC Hgb Hct MCV MCH MCHC RDW Lymph % (Auto) [place] % (Auto) Eos % (Auto) Lymph # [place] # Seg Neutrophils % Monocytes % (Manual) Monocytes # (Manual) D-Dimer ABG pH ABG pO2 ABG HCO3 ABG O2 Saturation ABG Base Excess ABG Hemoglobin Oxyhemoglobin Sodium Potassium Chloride Carbon Dioxide BUN Creatinine Glucose POC Glucose 200 H 263 H 218 H Lactic Acid Calcium Magnesium AST ALT Lactate Dehydrogenase Total Creatine Kinase C-Reactive Protein Albumin Urine WBC (Auto) Urine Total Protein Digoxin Salicylates Acetaminophen 12/21/19 12/21/19 12/21/19 04:38 05:26 12:35 WBC Hgb Hct MCV MCH MCHC RDW Lymph % (Auto) [place] % (Auto) Eos % (Auto) Lymph # [place] # Seg Neutrophils % Monocytes % (Manual) Monocytes # (Manual) D-Dimer ABG pH ABG pO2 ABG HCO3 ABG O2 Saturation ABG Base Excess ABG Hemoglobin Oxyhemoglobin Sodium 149 H Potassium 3.5 L Chloride 110.5 H Carbon Dioxide BUN Creatinine Glucose 158 H POC Glucose 193 H 193 H Lactic Acid Calcium Magnesium AST ALT Lactate Dehydrogenase Total Creatine Kinase C-Reactive Protein Albumin Urine WBC (Auto) Urine Total Protein Digoxin Salicylates Acetaminophen 12/21/19 12/22/19 12/22/19 18:29 00:03 05:15 WBC Hgb 10.3 L Hct 34.7 L MCV MCH 25 L MCHC 30 L RDW 19.4 H Lymph % (Auto) 9.0 L [place] % (Auto) 12.3 H Eos % (Auto) 5.0 H Lymph # 0.5 L [place] # Seg Neutrophils % 73.2 H Monocytes % (Manual) Monocytes # (Manual) D-Dimer ABG pH ABG pO2 ABG HCO3 ABG O2 Saturation ABG Base Excess ABG Hemoglobin Oxyhemoglobin Sodium Potassium Chloride Carbon Dioxide BUN Creatinine Glucose POC Glucose 186 H 143 H Lactic Acid Calcium Magnesium AST ALT Lactate Dehydrogenase Total Creatine Kinase C-Reactive Protein Albumin Urine WBC (Auto) Urine Total Protein Digoxin Salicylates Acetaminophen 12/22/19 12/22/19 12/22/19 05:15 06:02 12:13 WBC Hgb Hct MCV MCH MCHC RDW Lymph % (Auto) [place] % (Auto) Eos % (Auto) Lymph # [place] # Seg Neutrophils % Monocytes % (Manual) Monocytes # (Manual) D-Dimer ABG pH ABG pO2 ABG HCO3 ABG O2 Saturation ABG Base Excess ABG Hemoglobin Oxyhemoglobin Sodium 152 H Potassium Chloride 113.5 H Carbon Dioxide BUN Creatinine Glucose 126 H POC Glucose 144 H 159 H Lactic Acid Calcium Magnesium AST ALT Lactate Dehydrogenase Total Creatine Kinase C-Reactive Protein Albumin Urine WBC (Auto) Urine Total Protein Digoxin Salicylates Acetaminophen 12/22/19 12/22/19 12/23/19 18:03 23:50 05:27 WBC Hgb Hct MCV MCH MCHC RDW Lymph % (Auto) [place] % (Auto) Eos % (Auto) Lymph # [place] # Seg Neutrophils % Monocytes % (Manual) Monocytes # (Manual) D-Dimer ABG pH ABG pO2 ABG HCO3 ABG O2 Saturation ABG Base Excess ABG Hemoglobin Oxyhemoglobin Sodium Potassium Chloride Carbon Dioxide BUN Creatinine Glucose POC Glucose 140 H 227 H 185 H Lactic Acid Calcium Magnesium AST ALT Lactate Dehydrogenase Total Creatine Kinase C-Reactive Protein Albumin Urine WBC (Auto) Urine Total Protein Digoxin Salicylates Acetaminophen 12/23/19 12/23/19 12/23/19 12:13 16:05 16:40 WBC Hgb Hct MCV MCH MCHC RDW Lymph % (Auto) [place] % (Auto) Eos % (Auto) Lymph # [place] # Seg Neutrophils % Monocytes % (Manual) Monocytes # (Manual) D-Dimer ABG pH 7.259 L ABG pO2 76.2 L ABG HCO3 30.6 H ABG O2 Saturation 94.6 L ABG Base Excess ABG Hemoglobin 11.5 L Oxyhemoglobin 92.2 L Sodium 163 H* D Potassium 3.4 L Chloride 120.1 H Carbon Dioxide BUN Creatinine Glucose 162 H POC Glucose 132 H Lactic Acid Calcium Magnesium AST ALT Lactate Dehydrogenase Total Creatine Kinase C-Reactive Protein Albumin Urine WBC (Auto) Urine Total Protein Digoxin Salicylates Acetaminophen 12/23/19 12/24/19 12/24/19 17:53 00:48 04:20 WBC Hgb Hct MCV MCH MCHC RDW Lymph % (Auto) [place] % (Auto) Eos % (Auto) Lymph # [place] # Seg Neutrophils % Monocytes % (Manual) Monocytes # (Manual) D-Dimer ABG pH ABG pO2 ABG HCO3 30.4 H ABG O2 Saturation ABG Base Excess 3.9 H ABG Hemoglobin 10.3 L Oxyhemoglobin 94.4 L Sodium Potassium Chloride Carbon Dioxide BUN Creatinine Glucose POC Glucose 180 H 174 H Lactic Acid Calcium Magnesium AST ALT Lactate Dehydrogenase Total Creatine Kinase C-Reactive Protein Albumin Urine WBC (Auto) Urine Total Protein Digoxin Salicylates Acetaminophen 12/24/19 12/24/19 12/24/19 04:53 04:53 11:50 WBC Hgb 9.7 L Hct 33.2 L MCV MCH 25 L MCHC 29 L RDW 20.1 H Lymph % (Auto) [place] % (Auto) Eos % (Auto) Lymph # [place] # Seg Neutrophils % Monocytes % (Manual) 15.0 H Monocytes # (Manual) 0.9 H D-Dimer ABG pH ABG pO2 ABG HCO3 ABG O2 Saturation ABG Base Excess ABG Hemoglobin Oxyhemoglobin Sodium 163 H* Potassium 3.2 L Chloride 122.6 H Carbon Dioxide BUN Creatinine Glucose 168 H POC Glucose 190 H Lactic Acid Calcium Magnesium AST ALT Lactate Dehydrogenase Total Creatine Kinase C-Reactive Protein Albumin Urine WBC (Auto) Urine Total Protein Digoxin Salicylates Acetaminophen 12/24/19 12/24/19 12/24/19 15:00 16:28 21:15 WBC Hgb Hct MCV MCH MCHC RDW Lymph % (Auto) [place] % (Auto) Eos % (Auto) Lymph # [place] # Seg Neutrophils % Monocytes % (Manual) Monocytes # (Manual) D-Dimer ABG pH ABG pO2 ABG HCO3 ABG O2 Saturation ABG Base Excess ABG Hemoglobin Oxyhemoglobin Sodium 165 H* D 163 H* Potassium Chloride Carbon Dioxide BUN Creatinine Glucose POC Glucose 160 H Lactic Acid Calcium Magnesium AST ALT Lactate Dehydrogenase Total Creatine Kinase C-Reactive Protein Albumin Urine WBC (Auto) Urine Total Protein Digoxin Salicylates Acetaminophen 12/25/19 12/25/19 12/25/19 00:31 05:38 05:46 WBC Hgb 9.7 L Hct 32.5 L MCV MCH 25 L MCHC 30 L RDW 19.4 H Lymph % (Auto) [place] % (Auto) Eos % (Auto) Lymph # [place] # Seg Neutrophils % Monocytes % (Manual) Monocytes # (Manual) D-Dimer ABG pH ABG pO2 ABG HCO3 ABG O2 Saturation ABG Base Excess ABG Hemoglobin Oxyhemoglobin Sodium Potassium Chloride Carbon Dioxide BUN Creatinine Glucose POC Glucose 182 H 194 H Lactic Acid Calcium Magnesium AST ALT Lactate Dehydrogenase Total Creatine Kinase C-Reactive Protein Albumin Urine WBC (Auto) Urine Total Protein Digoxin Salicylates Acetaminophen 12/25/19 12/25/19 12/25/19 05:46 11:35 11:38 WBC Hgb Hct MCV MCH MCHC RDW Lymph % (Auto) [place] % (Auto) Eos % (Auto) Lymph # [place] # Seg Neutrophils % Monocytes % (Manual) Monocytes # (Manual) D-Dimer ABG pH 7.330 L ABG pO2 65.7 L ABG HCO3 32.6 H ABG O2 Saturation 92.5 L ABG Base Excess 5.3 H ABG Hemoglobin 10.4 L Oxyhemoglobin 90.0 L Sodium 166 H* Potassium 2.9 L* Chloride 124.5 H Carbon Dioxide BUN Creatinine Glucose 190 H POC Glucose 192 H Lactic Acid Calcium Magnesium AST ALT Lactate Dehydrogenase Total Creatine Kinase C-Reactive Protein Albumin Urine WBC (Auto) Urine Total Protein Digoxin Salicylates Acetaminophen 12/25/19 12/25/19 12/25/19 13:01 16:45 17:20 WBC Hgb Hct MCV MCH MCHC RDW Lymph % (Auto) [place] % (Auto) Eos % (Auto) Lymph # [place] # Seg Neutrophils % Monocytes % (Manual) Monocytes # (Manual) D-Dimer ABG pH 7.296 L ABG pO2 101.5 H ABG HCO3 33.2 H ABG O2 Saturation ABG Base Excess 5.3 H ABG Hemoglobin 9.6 L Oxyhemoglobin 94.6 L Sodium 174 H* Potassium Chloride Carbon Dioxide BUN Creatinine Glucose POC Glucose Lactic Acid Calcium Magnesium AST ALT Lactate Dehydrogenase Total Creatine Kinase C-Reactive Protein Albumin Urine WBC (Auto) Urine Total Protein < 4 L Digoxin Salicylates Acetaminophen 12/25/19 12/25/19 12/26/19 17:48 18:50 00:43 WBC Hgb Hct MCV MCH MCHC RDW Lymph % (Auto) [place] % (Auto) Eos % (Auto) Lymph # [place] # Seg Neutrophils % Monocytes % (Manual) Monocytes # (Manual) D-Dimer ABG pH ABG pO2 ABG HCO3 ABG O2 Saturation ABG Base Excess ABG Hemoglobin Oxyhemoglobin Sodium 166 H* 164 H* Potassium Chloride 127.3 H Carbon Dioxide BUN Creatinine Glucose 220 H POC Glucose 252 H Lactic Acid Calcium Magnesium AST ALT Lactate Dehydrogenase Total Creatine Kinase C-Reactive Protein Albumin Urine WBC (Auto) Urine Total Protein Digoxin Salicylates Acetaminophen 12/26/19 12/26/19 12/26/19 05:31 08:07 08:07 WBC 4.3 L Hgb 9.6 L Hct 32.1 L MCV MCH 26 L MCHC 30 L RDW 20.5 H Lymph % (Auto) [place] % (Auto) Eos % (Auto) Lymph # [place] # Seg Neutrophils % Monocytes % (Manual) Monocytes # (Manual) D-Dimer ABG pH ABG pO2 ABG HCO3 ABG O2 Saturation ABG Base Excess ABG Hemoglobin Oxyhemoglobin Sodium 162 H* Potassium Chloride 122.1 H Carbon Dioxide BUN Creatinine Glucose 247 H POC Glucose 187 H Lactic Acid Calcium Magnesium AST ALT Lactate Dehydrogenase Total Creatine Kinase C-Reactive Protein Albumin Urine WBC (Auto) Urine Total Protein Digoxin Salicylates Acetaminophen 12/26/19 12/26/19 12/26/19 08:07 12:20 16:25 WBC Hgb Hct MCV MCH MCHC RDW Lymph % (Auto) [place] % (Auto) Eos % (Auto) Lymph # [place] # Seg Neutrophils % Monocytes % (Manual) Monocytes # (Manual) D-Dimer ABG pH 7.290 L ABG pO2 73.2 L ABG HCO3 33.2 H ABG O2 Saturation 94.9 L ABG Base Excess 5.2 H ABG Hemoglobin 10.0 L Oxyhemoglobin 92.5 L Sodium 159 H Potassium Chloride Carbon Dioxide BUN Creatinine Glucose POC Glucose 234 H Lactic Acid Calcium Magnesium AST ALT Lactate Dehydrogenase Total Creatine Kinase C-Reactive Protein Albumin Urine WBC (Auto) Urine Total Protein Digoxin Salicylates Acetaminophen 12/26/19 12/26/19 12/26/19 17:33 22:35 23:30 WBC Hgb Hct MCV MCH MCHC RDW Lymph % (Auto) [place] % (Auto) Eos % (Auto) Lymph # [place] # Seg Neutrophils % Monocytes % (Manual) Monocytes # (Manual) D-Dimer ABG pH ABG pO2 ABG HCO3 ABG O2 Saturation ABG Base Excess ABG Hemoglobin Oxyhemoglobin Sodium Potassium Chloride Carbon Dioxide BUN Creatinine Glucose POC Glucose 244 H 208 H 287 H Lactic Acid Calcium Magnesium AST ALT Lactate Dehydrogenase Total Creatine Kinase C-Reactive Protein Albumin Urine WBC (Auto) Urine Total Protein Digoxin Salicylates Acetaminophen 12/27/19 12/27/19 12/27/19 03:48 03:48 03:48 WBC Hgb 10.1 L Hct 35.4 L MCV MCH 25 L MCHC 29 L RDW 20.1 H Lymph % (Auto) [place] % (Auto) Eos % (Auto) Lymph # [place] # Seg Neutrophils % Monocytes % (Manual) Monocytes # (Manual) D-Dimer ABG pH ABG pO2 ABG HCO3 ABG O2 Saturation ABG Base Excess ABG Hemoglobin Oxyhemoglobin Sodium 160 H Potassium Chloride 118.8 H Carbon Dioxide 33 H BUN Creatinine Glucose 217 H POC Glucose Lactic Acid Calcium Magnesium 2.70 H AST ALT Lactate Dehydrogenase Total Creatine Kinase C-Reactive Protein Albumin Urine WBC (Auto) Urine Total Protein Digoxin Salicylates Acetaminophen 12/27/19 12/27/19 12/27/19 05:50 11:58 16:05 WBC Hgb Hct MCV MCH MCHC RDW Lymph % (Auto) [place] % (Auto) Eos % (Auto) Lymph # [place] # Seg Neutrophils % Monocytes % (Manual) Monocytes # (Manual) D-Dimer ABG pH 7.180 L* ABG pO2 73.6 L ABG HCO3 34.8 H ABG O2 Saturation 92.7 L ABG Base Excess 3.8 H ABG Hemoglobin 12.0 L Oxyhemoglobin 90.2 L Sodium Potassium Chloride Carbon Dioxide BUN Creatinine Glucose POC Glucose 224 H 218 H Lactic Acid Calcium Magnesium AST ALT Lactate Dehydrogenase Total Creatine Kinase C-Reactive Protein Albumin Urine WBC (Auto) Urine Total Protein Digoxin Salicylates Acetaminophen 12/27/19 12/27/19 12/27/19 18:05 19:50 21:53 WBC Hgb Hct MCV MCH MCHC RDW Lymph % (Auto) [place] % (Auto) Eos % (Auto) Lymph # [place] # Seg Neutrophils % Monocytes % (Manual) Monocytes # (Manual) D-Dimer ABG pH 7.328 L ABG pO2 49.9 L ABG HCO3 33.3 H ABG O2 Saturation 87.1 L ABG Base Excess 5.7 H ABG Hemoglobin 11.2 L Oxyhemoglobin 84.8 L Sodium Potassium Chloride Carbon Dioxide BUN Creatinine Glucose POC Glucose 214 H 178 H Lactic Acid Calcium Magnesium AST ALT Lactate Dehydrogenase Total Creatine Kinase C-Reactive Protein Albumin Urine WBC (Auto) Urine Total Protein Digoxin Salicylates Acetaminophen 12/28/19 12/28/19 12/28/19 00:42 04:37 04:37 WBC Hgb 9.8 L Hct 33.5 L MCV MCH 25 L MCHC 29 L RDW 21.1 H Lymph % (Auto) [place] % (Auto) Eos % (Auto) Lymph # [place] # Seg Neutrophils % Monocytes % (Manual) Monocytes # (Manual) D-Dimer ABG pH ABG pO2 ABG HCO3 ABG O2 Saturation ABG Base Excess ABG Hemoglobin Oxyhemoglobin Sodium 157 H Potassium 3.4 L Chloride 117.5 H Carbon Dioxide BUN Creatinine Glucose 193 H POC Glucose 157 H Lactic Acid Calcium Magnesium AST ALT Lactate Dehydrogenase Total Creatine Kinase C-Reactive Protein Albumin Urine WBC (Auto) Urine Total Protein Digoxin Salicylates Acetaminophen 12/28/19 12/28/19 12/28/19 04:52 05:19 12:05 WBC Hgb Hct MCV MCH MCHC RDW Lymph % (Auto) [place] % (Auto) Eos % (Auto) Lymph # [place] # Seg Neutrophils % Monocytes % (Manual) Monocytes # (Manual) D-Dimer ABG pH ABG pO2 51.7 L ABG HCO3 28.7 H ABG O2 Saturation 89.9 L ABG Base Excess 4.1 H ABG Hemoglobin 9.7 L Oxyhemoglobin 87.7 L Sodium Potassium Chloride Carbon Dioxide BUN Creatinine Glucose POC Glucose 202 H 248 H Lactic Acid Calcium Magnesium AST ALT Lactate Dehydrogenase Total Creatine Kinase C-Reactive Protein Albumin Urine WBC (Auto) Urine Total Protein Digoxin Salicylates Acetaminophen 12/28/19 12/28/19 12/28/19 18:11 21:15 23:22 WBC Hgb Hct MCV MCH MCHC RDW Lymph % (Auto) [place] % (Auto) Eos % (Auto) Lymph # [place] # Seg Neutrophils % Monocytes % (Manual) Monocytes # (Manual) D-Dimer ABG pH ABG pO2 ABG HCO3 ABG O2 Saturation ABG Base Excess ABG Hemoglobin Oxyhemoglobin Sodium Potassium Chloride Carbon Dioxide BUN Creatinine Glucose POC Glucose 226 H 217 H 227 H Lactic Acid Calcium Magnesium AST ALT Lactate Dehydrogenase Total Creatine Kinase C-Reactive Protein Albumin Urine WBC (Auto) Urine Total Protein Digoxin Salicylates Acetaminophen 12/29/19 12/29/19 12/29/19 04:09 04:59 04:59 WBC 11.1 H Hgb 9.3 L Hct 31.1 L MCV 81 L MCH 24 L MCHC 30 L RDW 19.9 H Lymph % (Auto) [place] % (Auto) Eos % (Auto) Lymph # [place] # Seg Neutrophils % Monocytes % (Manual) Monocytes # (Manual) D-Dimer ABG pH 7.473 H ABG pO2 126.1 H ABG HCO3 29.2 H ABG O2 Saturation ABG Base Excess 5.1 H ABG Hemoglobin 8.4 L Oxyhemoglobin Sodium 157 H Potassium 3.2 L Chloride 118.2 H Carbon Dioxide BUN Creatinine 1.7 H Glucose 229 H POC Glucose Lactic Acid Calcium Magnesium AST ALT Lactate Dehydrogenase Total Creatine Kinase C-Reactive Protein Albumin Urine WBC (Auto) Urine Total Protein Digoxin Salicylates Acetaminophen 12/29/19 12/29/19 05:15 12:13 WBC Hgb Hct MCV MCH MCHC RDW Lymph % (Auto) [place] % (Auto) Eos % (Auto) Lymph # [place] # Seg Neutrophils % Monocytes % (Manual) Monocytes # (Manual) D-Dimer ABG pH ABG pO2 ABG HCO3 ABG O2 Saturation ABG Base Excess ABG Hemoglobin Oxyhemoglobin Sodium Potassium Chloride Carbon Dioxide BUN Creatinine Glucose POC Glucose 221 H 392 H Lactic Acid Calcium Magnesium AST ALT Lactate Dehydrogenase Total Creatine Kinase C-Reactive Protein Albumin Urine WBC (Auto) Urine Total Protein Digoxin Salicylates Acetaminophen Chest x-ray: other (none today) Allied health notes reviewed: nursing
[2019-12-29] MEDS: fentaNYL DRIP Premix 2,000 MCG/100 ML BAG IV SCH (13:26)
--- NOTE | 2019-12-29 14:27 | Progress Note ---
Assessment and Plan Cultures: Blood culture 12/18/2019 no growth today Urine culture 12/19/2019 no growth today Sputum culture 12/18/2019 no growth today Sputum culture 12/27/2019 MRSA A/P: 59-year-old male past medical history diastolic CHF, OHS, HTN, DM 2, hy pothyroidism #Sepsis with septic shock: now with fever 102.8 and pressors, source ? possible MRSA pneumonia #MRSA pneumonia: sputum 12/26 +MRSA #Acute hypoxic respiratory failure: remains intubated Fio2 45,p8. CXR with increased interstitial consolidation and effusions #Diabetes: Tight glycemic control. #Multiple chronic comorbidities #JAGDEEP: creat is up Recs: -blood culture stat -start linezolid 600 mg IV q 12 hour -monitor creatinine will follow Nellie Felton MD [facility] ([facility]) Office [phone] Subjective Date of service: 12/29/19 Principal diagnosis: Ac. Hypoxemic Resp Failure; Septic Shock; Magdiel. PNA; PUI COVID-19; CHF; JOE Interval history: Re-consulted due to fever and MRSA +sputum. Patient remains intubated, fever 102.8, on pressors. Objective - Exam Narrative Exam: Constitutional: intubated sedated Head, Ears, Nose: Normocephalic, atraumatic. Eyes: Conjunctivae/corneas clear. No icterus. No ptosis. Oral: +ETT Cardiovascular: S1, S2 normal. Respiratory: Good air entry, clear to auscultation bilaterally GI: Soft, non-tender; bowel sounds normal. No peritoneal signs. Musculoskeletal: No pedal edema, no cyanosis. Skin:groin irritation Hem/Lymphatic: No palpable cervical or supraclavicular nodes. No lymphangitis Neurological: sedated - Constitutional Vitals: Vital Signs Temp Pulse Resp BP Pulse Ox 102.6 F H 105 H 19 109/55 92 12/29/19 12:00 12/29/19 13:00 12/29/19 13:00 12/29/19 13:00 12/29/19 13:00 Temperature -Last 24 Hours Temperature 102.6 F Temperature 102.8 F Temperature 100.8 F Temperature 99.5 F Temperature 99.3 F Temperature 99.2 F - Labs CBC & Chem 7: 12/29/19 04:59 12/29/19 04:59 Labs: Abnormal lab results 12/28/19 12/28/19 12/28/19 Range/Units 18:11 21:15 23:22 WBC (4.5-11.0) K/mm3 Hgb (11.8-15.2) gm/dl Hct (35.5-45.6) % MCV (84-94) fl MCH (28-32) pg MCHC (32-34) % RDW (13.2-15.2) % ABG pH (7.350-7.450) pH Units ABG pO2 (80.0-90.0) mm Hg ABG HCO3 (20.0-26.0) mmol/L ABG Base Excess (-2.0-3.0) mmol/L ABG Hemoglobin (14.0-18.0) gm/dl Sodium (137-145) mmol/L Potassium (3.6-5.0) mmol/L Chloride (98-107) mmol/L Creatinine (0.8-1.5) mg/dL Glucose (75-100) mg/dL POC Glucose 226 H 217 H 227 H (70-105) 12/29/19 12/29/19 12/29/19 Range/Units 04:09 04:59 04:59 WBC 11.1 H (4.5-11.0) K/mm3 Hgb 9.3 L (11.8-15.2) gm/dl Hct 31.1 L (35.5-45.6) % MCV 81 L (84-94) fl MCH 24 L (28-32) pg MCHC 30 L (32-34) % RDW 19.9 H (13.2-15.2) % ABG pH 7.473 H (7.350-7.450) pH Units ABG pO2 126.1 H (80.0-90.0) mm Hg ABG HCO3 29.2 H (20.0-26.0) mmol/L ABG Base Excess 5.1 H (-2.0-3.0) mmol/L ABG Hemoglobin 8.4 L (14.0-18.0) gm/dl Sodium 157 H (137-145) mmol/L Potassium 3.2 L (3.6-5.0) mmol/L Chloride 118.2 H (98-107) mmol/L Creatinine 1.7 H (0.8-1.5) mg/dL Glucose 229 H (75-100) mg/dL POC Glucose (70-105) 12/29/19 12/29/19 Range/Units 05:15 12:13 WBC (4.5-11.0) K/mm3 Hgb (11.8-15.2) gm/dl Hct (35.5-45.6) % MCV (84-94) fl MCH (28-32) pg MCHC (32-34) % RDW (13.2-15.2) % ABG pH (7.350-7.450) pH Units ABG pO2 (80.0-90.0) mm Hg ABG HCO3 (20.0-26.0) mmol/L ABG Base Excess (-2.0-3.0) mmol/L ABG Hemoglobin (14.0-18.0) gm/dl Sodium (137-145) mmol/L Potassium (3.6-5.0) mmol/L Chloride (98-107) mmol/L Creatinine (0.8-1.5) mg/dL Glucose (75-100) mg/dL POC Glucose 221 H 392 H (70-105)
--- NOTE | 2019-12-29 15:09 | Progress Note ---
Assessment and Plan Assessment and plan: 59-year-old male past medical history diastolic CHF, OHS, HTN, DM 2, hypothyroidism admitted with confusion after being found by a neighbor. On arrival patient was found to be lethargic, and in respiratory distress and hypoxic. Patient was intubated in the ER because of hypoxic respiratory failure. Also noted to be hypotensive, placed on pressor admitted to ICU. Patient is negative for COVID-19, being treated for bilateral pneumonia. JAGDEEP improved with IV fluid, ID and critical care following. Chest x-ray: Left lower lobe airspace disease CT chest: 1. Patchy bilateral nodular and consolidative airspace opacities which are nonspecific but likely related to the reported history of Covid. 2. Multiple enlarged partially visualized left supraclavicular and lower cervical chain lymph nodes. While these are nonspecific and may be reactive, a neoplastic process is possible, recommend short interval follow-up after patient recovers from the acute episode. / Acute hypoxic respiratory failure Likely from bilateral pneumonia and diastolic heart failure Patient intubated, placed on ventilatory support. critical care team consulted in ED. Patient is extubated, continue nebulizer breathing treatment and as needed biPAP We will also do a swallow eval / Sepsis with shock cont IV antibiotic therapy, IV fluid resuscitation therapy, monitor urine output every shift, maintain mean arterial blood pressure greater than or equal to 65, s/p IV pressor support. / Suspected 2019-nCoV infection -ruled out with 2 negative test / Diastolic CHF Preserved EF based on prior echocardiogram Monitor weight strict I's/O, daily weight, monitor urine output every shift, submental oxygen, blood pressure control. /JAGDEEP, due to vasomotor nephropathy, present on admission -Creatinine improving, continue IV fluid -Likely due to severe sepsis and hypotension /hypernatremia, -due to dehydration and sepsis -change fluid to D5W - monitor BMP /Hypokalemia, replete / Diabetes type II Initiate tube feeding diet Sliding scale insulin, Accu-Chek, hypoglycemia protocol. / Hypothyroidism Synthroid therapy, supportive care. / Bilateral pneumonia Pneumonia protocol: IV antibiotic therapy with rocephin for total 7 days, pulse oximetry, /Cervical lymphadenopathy -Reactive versus infectious process versus malignancy -Need repeat scanning and further staging when medically more stable -Pulmonology and ID following / HTN (hypertension) -hold BP meds as patient is hypotensive Monitor blood pressure every shift, continue medical management. /History of obstructive sleep apnea -Patient currently on mechanical ventilation /Acute metabolic encephalopathy Secondary to hyponatremia. /Urinary retention, suspected in the ER -Patient having good urine output now, will hold any CT scan -Continue IV fluid / DVT prophylaxis SCD to bilateral lower extremities while in bed, prophylactic heparin 12/19/19: Negative for COVID-19, continue pressor and wean off as tolerated, con tinue IV antibiotic and follow cultures. 12/19: Weaned off from pressor, sodium 156>157>153 today, creatinine 1.4>1.2>1.0. Continue IV fluid. Wean off from vent as tolerated. Follow ID recommendation 12/20: Extubated today, continue to monitor in the ICU overnight if clinically stable with transfer out to [facility]/telemetry tomorrow a.m.. Sodium 149 today, continue IV fluid and monitor BMP. Swallow eval, PT OT eval. 2nd text for covid is negative 12/21: transfer to [facility], start on gentle hydration. mechanical soft diet 12/22: placed back on bipap, Na 163 - start on D5W, monitor bmp 12/23: spoke to sister, updated [id number], also discussed Pulmonary, will likely need LTAC. Obtain Nephrology due to persistent Hypernatremia. Will start on free water and continue to monitor. Remains of restriants for safety due to intermittent confusion. 12/24: Still with intermittent encephalopathy. Requiring restraints. Hypernatremia still persist continue hypotonic solution. Nephrology consulted. Free water started this morning will increase dose. Replace potassium as hypokalemia still persist 12/26/19: Clinically improving, BIPAP now PRN AND HS, Na improving, continue renal follow up. I have called [facility] in case they would like to transfer the patient tested previously requested. 12/26: Hypernatermia still persist, had pulled out NGT yesterday, Continue free water, Continue Bipap, [place] states he is not yet stable for transfer. Although from our critical care team this patient has been cleared for to be able to transfer. 12/27: Patient reintubated due to hypoxia. Continue current management as outlined by measuring machine operator. Sodium is improving. Continue current management monitor ABG and intermittent chest x-ray. [facility] updated. Patient sister also updated. 12/28: Sepsis persist. Antibiotics adjusted.-start linezolid 600 mg IV q 12 hour. Will adjust insulin for better management of blood glucose. The high probability of a clinically significant, sudden or life threatening deterioration of the [renal, pulmonary] system(s) required my full and direct attention, intervention and personal management. The aggregate critical care time was [35] minutes. This time is in addition to time spent performing report ed procedures but includes the following: [x] Data Review and interpretation [x] Patient assessment and monitoring of vital signs [x] Documentation [x] Medication orders and management History Interval history: Patient seen and examined, still on full ventilatory support with recurrent fever. Hospitalist Physical - Physical exam Narrative exam: GENERAL: well-developed obese white male lying on bed on restriants due to confusion and pulling. ETT HEENT: Normocephalic. Atraumatic. No conjunctival congestion or icterus. Patient has moist mucous membranes. ETT NECK: Supple. Trachea midline. CHEST/LUNGS: Coarse breath sound auscultated bilaterally, HEART/CARDIOVASCULAR: Regular in rate and rhythm. S1 and S2 positive. ABDOMEN: Abdomen is soft, nontender. Patient has normal bowel sounds. SKIN: There is no rash. Warm and dry. NEURO: follows some command, AMS, no focal deficits MUSCULOSKELETAL: No joint effusion or tenderness. EXTRIMITY: No edema, no cyanosis or clubbing. PSYCH: Sedated - Constitutional Vitals: Temp Pulse Resp BP Pulse Ox 102.6 F H 95 H 24 109/55 92 12/29/19 12:00 12/29/19 14:38 12/29/19 14:38 12/29/19 13:00 12/29/19 13:00 General appearance: Present: severe distress HEART Score - HEART Score Troponin: Troponin T 0.011 ng/mL (0.00-0.029) 12/18/19 14:45 Results - Labs CBC & Chem 7: 12/29/19 04:59 12/29/19 04:59 Labs: Laboratory Last Values WBC 11.1 K/mm3 (4.5-11.0) H 12/29/19 04:59 RBC 3.84 M/mm3 (3.65-5.03) 12/29/19 04:59 Hgb 9.3 gm/dl (11.8-15.2) L 12/29/19 04:59 Hct 31.1 % (35.5-45.6) L 12/29/19 04:59 MCV 81 fl (84-94) L 12/29/19 04:59 MCH 24 pg (28-32) L 12/29/19 04:59 MCHC 30 % (32-34) L 12/29/19 04:59 RDW 19.9 % (13.2-15.2) H 12/29/19 04:59 Plt Count 188 K/mm3 (140-440) 12/29/19 04:59 Lymph % (Auto) 9.0 % (13.4-35.0) L 12/22/19 05:15 [place] % (Auto) 12.3 % (0.0-7.3) H 12/22/19 05:15 Eos % (Auto) 5.0 % (0.0-4.3) H 12/22/19 05:15 Baso % (Auto) 0.5 % (0.0-1.8) 12/22/19 05:15 Lymph # 0.5 K/mm3 (1.2-5.4) L 12/22/19 05:15 [place] # 0.7 K/mm3 (0.0-0.8) 12/22/19 05:15 Eos # 0.3 K/mm3 (0.0-0.4) 12/22/19 05:15 Baso # 0.0 K/mm3 (0.0-0.1) 12/22/19 05:15 Add Manual Diff Complete 12/24/19 04:53 Total Counted 100 12/24/19 04:53 Seg Neutrophils % 73.2 % (40.0-70.0) H 12/22/19 05:15 Seg Neuts % (Manual) 60.0 % (40.0-70.0) 12/24/19 04:53 Band Neutrophils % 0 % 12/24/19 04:53 Lymphocytes % (Manual) 20.0 % (13.4-35.0) 12/24/19 04:53 Reactive Lymphs % (Man) 0 % 12/24/19 04:53 Monocytes % (Manual) 15.0 % (0.0-7.3) H 12/24/19 04:53 Eosinophils % (Manual) 4.0 % (0.0-4.3) 12/24/19 04:53 Basophils % (Manual) 0 % (0.0-1.8) 12/24/19 04:53 Metamyelocytes % 1.0 % 12/24/19 04:53 Myelocytes % 0 % 12/24/19 04:53 Promyelocytes % 0 % 12/24/19 04:53 Blast Cells % 0 % 12/24/19 04:53 Nucleated RBC % Not Reportable 12/24/19 04:53 Seg Neutrophils # 4.4 K/mm3 (1.8-7.7) 12/22/19 05:15 Seg Neutrophils # Man 3.5 K/mm3 (1.8-7.7) 12/24/19 04:53 Band Neutrophils # 0.0 K/mm3 12/24/19 04:53 Lymphocytes # (Manual) 1.2 K/mm3 (1.2-5.4) 12/24/19 04:53 Abs React Lymphs (Man) 0.0 K/mm3 12/24/19 04:53 Monocytes # (Manual) 0.9 K/mm3 (0.0-0.8) H 12/24/19 04:53 Eosinophils # (Manual) 0.2 K/mm3 (0.0-0.4) 12/24/19 04:53 Basophils # (Manual) 0.0 K/mm3 (0.0-0.1) 12/24/19 04:53 Metamyelocytes # 0.1 K/mm3 12/24/19 04:53 Myelocytes # 0.0 K/mm3 12/24/19 04:53 Promyelocytes # 0.0 K/mm3 12/24/19 04:53 Blast Cells # 0.0 K/mm3 12/24/19 04:53 WBC Morphology Not Reportable 12/24/19 04:53 Hypersegmented Neuts Not Reportable 12/24/19 04:53 Hyposegmented Neuts Not Reportable 12/24/19 04:53 Hypogranular Neuts Not Reportable 12/24/19 04:53 Smudge Cells Not Reportable 12/24/19 04:53 Toxic Granulation Not Reportable 12/24/19 04:53 Toxic Vacuolation Not Reportable 12/24/19 04:53 Dohle Bodies Not Reportable 12/24/19 04:53 Pelger-Huet Anomaly Not Reportable 12/24/19 04:53 Mrevin Rods Not Reportable 12/24/19 04:53 Platelet Estimate Consistent w auto 12/24/19 04:53 Clumped Platelets Not Reportable 12/24/19 04:53 Plt Clumps, EDTA Not Reportable 12/24/19 04:53 Large Platelets Not Reportable 12/24/19 04:53 Giant Platelets Not Reportable 12/24/19 04:53 Platelet Satelliting Not Reportable 12/24/19 04:53 Plt Morphology Comment Not Reportable 12/24/19 04:53 RBC Morphology Not Reportable 12/24/19 04:53 Dimorphic RBCs Not Reportable 12/24/19 04:53 Polychromasia Rare 12/24/19 04:53 Hypochromasia 1+ 12/24/19 04:53 Poikilocytosis Not Reportable 12/24/19 04:53 Anisocytosis 1+ 12/24/19 04:53 Microcytosis Few 12/24/19 04:53 Macrocytosis Not Reportable 12/24/19 04:53 Spherocytes Not Reportable 12/24/19 04:53 Pappenheimer Bodies Not Reportable 12/24/19 04:53 Sickle Cells Not Reportable 12/24/19 04:53 Target Cells Not Reportable 12/24/19 04:53 Tear Drop Cells Not Reportable 12/24/19 04:53 Ovalocytes Few 12/24/19 04:53 Helmet Cells Not Reportable 12/24/19 04:53 [place] Bodies Not Reportable 12/24/19 04:53 [place] Rings Not Reportable 12/24/19 04:53 Ileana Cells Not Reportable 12/24/19 04:53 Bite Cells Not Reportable 12/24/19 04:53 Crenated Cell Not Reportable 12/24/19 04:53 Elliptocytes Not Reportable 12/24/19 04:53 Acanthocytes (Spur) Not Reportable 12/24/19 04:53 Rouleaux Not Reportable 12/24/19 04:53 Hemoglobin C Crystals Not Reportable 12/24/19 04:53 Schistocytes Not Reportable 12/24/19 04:53 Malaria parasites Not Reportable 12/24/19 04:53 Gianni Bodies Not Reportable 12/24/19 04:53 Hem Pathologist Commnt No 12/24/19 04:53 PT 14.0 Sec. (12.2-14.9) 12/18/19 14:45 INR 1.10 (0.87-1.13) 12/18/19 14:45 APTT 29.4 Sec. (24.2-36.6) 12/18/19 14:45 D-Dimer 534.45 ng/mlDDU (0-234) H 12/18/19 14:45 ABG pH 7.473 pH Units (7.350-7.450) H 12/29/19 04:09 ABG pCO2 40.8 mm Hg 12/29/19 04:09 ABG pO2 126.1 mm Hg (80.0-90.0) H 12/29/19 04:09 ABG HCO3 29.2 mmol/L (20.0-26.0) H 12/29/19 04:09 ABG O2 Saturation 98.5 % (95.0-99.0) 12/29/19 04:09 ABG O2 Content 11.7 (0.0-44) 12/29/19 04:09 ABG Base Excess 5.1 mmol/L (-2.0-3.0) H 12/29/19 04:09 ABG Hemoglobin 8.4 gm/dl (14.0-18.0) L 12/29/19 04:09 ABG Carboxyhemoglobin 1.7 % (0.0-5.0) 12/29/19 04:09 ABG Methemoglobin 0.6 % (0.0-1.5) 12/29/19 04:09 Oxyhemoglobin 96.3 % (95.0-99.0) 12/29/19 04:09 FiO2 60 % 12/29/19 04:09 Sodium 157 mmol/L (137-145) H 12/29/19 04:59 Potassium 3.2 mmol/L (3.6-5.0) L 12/29/19 04:59 Chloride 118.2 mmol/L (98-107) H 12/29/19 04:59 Carbon Dioxide 26 mmol/L (22-30) 12/29/19 04:59 Anion Gap 16 mmol/L 12/29/19 04:59 BUN 15 mg/dL (9-20) 12/29/19 04:59 Creatinine 1.7 mg/dL (0.8-1.5) H 12/29/19 04:59 Estimated GFR 50 ml/min 12/29/19 04:59 BUN/Creatinine Ratio 9 % 12/29/19 04:59 Glucose 229 mg/dL (75-100) H 12/29/19 04:59 POC Glucose 392 (70-105) H 12/29/19 12:13 Lactic Acid 1.40 mmol/L (0.7-2.0) 12/18/19 23:08 Calcium 9.1 mg/dL (8.4-10.2) 12/29/19 04:59 Phosphorus 3.70 mg/dL (2.5-4.5) 12/27/19 03:48 Magnesium 2.70 mg/dL (1.7-2.3) H 12/27/19 03:48 Ferritin 83.4 ng/mL (13.0-400.0) 12/18/19 14:45 Total Bilirubin 0.30 mg/dL (0.1-1.2) 12/19/19 04:13 AST 85 units/L (5-40) H 12/19/19 04:13 ALT 61 units/L (7-56) H 12/19/19 04:13 Alkaline Phosphatase 80 units/L (35-129) 12/19/19 04:13 Ammonia 39.0 umol/L (25-60) 12/18/19 14:45 Lactate Dehydrogenase 235 units/L (91-180) H 12/18/19 14:45 Lactate Dehydrogenase 236 units/L (91-180) H 12/18/19 14:45 Total Creatine Kinase 40 units/L (55-170) L 12/18/19 14:45 Troponin T 0.011 ng/mL (0.00-0.029) 12/18/19 14:45 C-Reactive Protein 8.40 mg/dL (0.00-1.30) H 12/18/19 14:45 C-Reactive Protein 8.50 mg/dL (0.00-1.30) H 12/18/19 14:45 Total Protein 6.8 g/dL (6.3-8.2) 12/19/19 04:13 Albumin 3.0 g/dL (3.9-5) L 12/19/19 04:13 Albumin/Globulin Ratio 0.8 % 12/19/19 04:13 Procalcitonin 0.22 ng/mL (<0.15) 12/18/19 14:45 TSH 2.300 mlU/mL (0.270-4.200) 12/18/19 14:45 Urine Color Yellow (Yellow) 12/19/19 16:50 Urine Turbidity Clear (Clear) 12/19/19 16:50 Urine pH 5.0 (5.0-7.0) 12/19/19 16:50 Ur Specific [place] 1.010 (1.003-1.030) 12/19/19 16:50 Urine Protein <15 mg/dl mg/dL (Negative) 12/19/19 16:50 Urine Glucose (UA) 150 mg/dL (Negative) 12/19/19 16:50 Urine Ketones Neg mg/dL (Negative) 12/19/19 16:50 Urine Blood Neg (Negative) 12/19/19 16:50 Urine Nitrite Neg (Negative) 12/19/19 16:50 Urine Bilirubin Neg (Negative) 12/19/19 16:50 Urine Urobilinogen < 2.0 mg/dL (<2.0) 12/19/19 16:50 Ur Leukocyte Esterase Tr (Negative) 12/19/19 16:50 Urine WBC (Auto) 7.0 /HPF (0.0-6.0) H 12/19/19 16:50 Urine RBC (Auto) 4.0 /HPF (0.0-6.0) 12/19/19 16:50 U Epithel Cells (Auto) 1.0 /HPF (0-13.0) 12/19/19 16:50 Urine Bacteria (Auto) 1+ /HPF (Negative) 12/19/19 16:50 Urine Mucus Few /HPF 12/19/19 16:50 Urine Osmolality 140 Mosm/kg 12/25/19 16:45 Urine Creatinine < 4.2 mg/dL (0.1-20.0) 12/25/19 16:45 Urine Sodium 10 mmol/L 12/25/19 16:45 Urine Total Protein < 4 mg/dL (5-11.8) L 12/25/19 16:45 Digoxin 0.3 ng/mL (0.9-2.0) L 12/18/19 14:45 Salicylates < 0.3 mg/dL (2.8-20.0) L 12/18/19 14:45 Acetaminophen < 5.0 ug/mL (10.0-30.0) L 12/18/19 14:45 Plasma/Serum Alcohol < 0.01 % (0-0.07) 12/18/19 14:45 Coronavirus (PCR) Negative (Negative) 12/21/19 14:45 Blood Type A POSITIVE 12/18/19 14:45 Antibody Screen Negative 12/18/19 14:45 Microbiology: Microbiology 12/27/19 16:57 Tracheal Aspirate Sputum Culture - Final Methicillin Resist S. Aureus - Diagnostic Impressions Diagnostic Impressions: Echocardiogram 12/28/19 14:07 Transthoracic Echocardiogram Indication: SOB BP: 95/51 HR: 99 Conclusions *The left ventricular chamber size is mildly dilated. *There is no left ventricular hypertrophy. *Global left ventricular systolic function is mildly decreased. *The estimated ejection fraction is 45-50%. *Abnormal left ventricular diastolic filling is observed, consistent with impaired relaxation. *The right ventricular global systolic function is mildly reduced. *The right ventricular systolic pressure is calculated at 53 mmHg. Findings Left Ventricle: The left ventricular chamber size is mildly dilated. There is no left ventricular hypertrophy. Global left ventricular systolic function is mildly decreased. The estimated ejection fraction is 45-50%. Abnormal left ventricular diastolic filling is observed, consistent with impaired relaxation. Left Atrium: The left atrial chamber size is normal. Right Ventricle: The right ventricular cavity size is normal. The right ventricular global systolic function is mildly reduced. Right Atrium: The right atrial cavity size is normal. Aortic Valve: The aortic valve leaflets are mildly thickened. There is no evidence of aortic regurgitation. Mitral Valve: The mitral valve leaflets are mildly thickened. There is no evidence of mitral regurgitation. Tricuspid Valve: The tricuspid valve leaflets are normal. There is mild tricuspid regurgitation. The right ventricular systolic pressure is calculated at 53 mmHg. Pulmonic Valve: The pulmonic valve appears normal. There is trace pulmonic regurgitation. Pericardium: There is no pericardial effusion. Aorta: The aorta appears normal. Venous: The inferior vena cava is dilated. Measurements Chambers 2D Name Value Normal Range IVSd (2D) 1.08 cm (0.6 - 1.1) LVPWd (2D) 1 cm (0.6 - 1.1) LVIDd (2D) 4.67 cm (3.7 - 5.6) LVIDs (2D) 3.89 cm (2 - 3.8) LV FS (2D) 16.76 % - EF [place] (2D) 35.14 % - Ao root diameter (2D) 2.86 cm (2 - 3.7) Volumes/Mass Name Value Normal Range LA ESV SP 4CH (A/L) 31.8 ml - LA ESV SP 2CH (A/L) 27.37 ml - LA ESV BP (A/L) 33.43 ml - LA ESV BP (A/L) index 14.11 ml/m2 - LA ESV SP 4CH (MOD) 26.83 ml - LA ESV SP 2CH (MOD) 29.59 ml - LA ESV BP (MOD) 30.47 ml - LA ESV BP (MOD) index 12.86 ml/m2 - Diastolic/Systolic Function Name Value Normal Range MV E-wave Vmax 0.39 m/sec - MV deceleration time 115.69 msec - MV A-wave Vmax 0.63 m/sec - MV E:A ratio 0.62 ratio - Aortic Valve Name Value Normal Range AV Vmax 1.14 m/sec - AV VTI 20.1 cm - AV peak gradient 5.17 mmHg - AV mean gradient 3.89 mmHg - LVOT diameter 2.02 cm - LVOT Vmax 0.99 m/sec - LVOT VTI 16.45 cm - LVOT peak gradient 3.95 mmHg - LVOT mean gradient 2.45 mmHg - SV LVOT 52.45 ml - RALPH (continuity Vmax) 2.78 cm2 - RALPH (continuity VTI) 2.61 cm2 - Tricuspid Valve Name Value Normal Range TR Vmax 3.36 m/sec - TR peak gradient 45 mmHg - RAP 8 mmHg - RVSP 53 mmHg - IVC diameter 2.33 cm (1.2 - 2.3) Pulmonic Valve/Qp:Qs Name Value Normal Range PV Vmax 0.89 m/sec - PV peak gradient 3.16 mmHg - AL end-diastolic Vmax 1.42 m/sec - PV acceleration time 79.92 msec - [place]kes/IV: Voiding Method Condom Catheter IV Catheter Type [Right Upper PICC Line arm] IV Catheter Type [Right Leg] Intra-osseous IV Catheter Type [Right Wrist] Peripheral IV IV Catheter Type [Right Hand] INT / Saline Lock IV Catheter Type [Left Hand] INT / Saline Lock IV Catheter Type [Left Forearm INT / Saline Lock ] IV Catheter Type [Left Triple Lumen Cath Internal Jugular] Active Medications - Current Medications Current Medications: Generic Name Dose Route Start Last Admin Trade Name Freq PRN Reason Stop Dose Admin Acetaminophen 650 mg 12/29/19 09:21 12/29/19 09:26 Tylenol PO 650 mg Q4H PRN Administration Non Cardiac Pain or Temp>100.5 Albuterol/Ipratropium 1 ampul 12/18/19 14:00 12/29/19 14:37 Duoneb *Not For Prn Use* IH 1 ampul TIDRT SHANEL Administration Lipase/Protease/Amylase 1 each 12/19/19 08:[address] 10,500 Unit FEEDTUBE PRN PRN For Clogged Feeding Tube Aspirin 81 mg 12/19/19 10:00 12/29/19 09:12 Baby Aspirin PO 81 mg DAILY SHANEL Administration Famotidine 20 mg 12/20/19 10:00 12/29/19 09:12 Pepcid PO 20 mg BID SHANEL Administration Fentanyl 50 mcg 12/27/19 16:57 Sublimaze IV Q10MIN PRN ANALGESIA Folic Acid 1 mg 12/19/19 10:00 12/29/19 09:12 Folvite PO 1 mg DAILY SHANEL Administration Furosemide 20 mg 12/28/19 14:00 12/29/19 09:13 Lasix IV 01/01/20 10:01 20 mg DAILY SHANEL Administration Heparin Sodium (Porcine) 5,000 unit 12/18/19 22:00 12/29/19 09:22 Heparin SUB-Q 5,000 unit Q12HR SHANEL Administration Hydrophilic Ointment 1 applic 12/18/19 12:35 Vaseline Lip Therapy TP Q2HR PRN Dry Lips Dextrose 1,000 mls @ 50 mls/hr 12/27/19 14:00 12/29/19 02:36 D5w IV 12/30/19 09:59 50 mls/hr DIRECT SHANEL Administration Fentanyl Citrate 2,000 mcg in 100 mls @ 5.85 mls/hr 12/27/19 17:00 12/29/19 13:26 Fentanyl Drip Premix IV 1 mcg/kg/hr TITR SHANEL 5.85 mls/hr Administration Protocol 1 MCG/KG/HR Norepinephrine 4 mg in 250 mls @ 7.5 mls/hr 12/28/19 15:00 12/29/19 13:29 Levophed Drip 4 Mg/Ns 250 Ml IV 14 mcg/min TITR SHANEL 52.5 mls/hr Administration Protocol 2 MCG/MIN Linezolid 600 mg in 300 mls @ 300 mls/hr 12/29/19 15:00 Zyvox 600mg/300ml IV Q12HR SHANEL Protocol Insulin Glargine 20 units 12/29/19 22:00 Lantus SUB-Q QHS SHANEL Insulin Human Lispro 0 unit 12/20/19 00:00 12/29/19 13:00 Humalog SUB-Q 10 unit Q6HR SHANEL Administration Protocol Levothyroxine Sodium 88 mcg 12/19/19 06:00 12/29/19 06:04 Synthroid PO 88 mcg QAM@0600 SHANEL Administration Multi-Ingred Cream/Lotion/Oil/Oint 1 applic 12/18/19 12:35 Artificial Tears Ophth Oint OU Q4HR PRN Dry Eye(s) Potassium Chloride 40 meq 12/29/19 10:00 12/29/19 09:27 Potassium Chloride FEEDTUBE 40 meq QDAY SHANEL Administration Simple Syrup 15 ml 12/19/19 08:29 Simple Syrup FEEDTUBE PRN PRN Hypoglycemia Simple Syrup 30 ml 12/19/19 08:29 Simple Syrup FEEDTUBE PRN PRN Hypoglycemia Sodium Bicarbonate 325 mg 12/19/19 08:29 Sodium Bicarbonate FEEDTUBE PRN PRN For Clogged Feeding Tube Sodium Chloride 10 ml 12/18/19 22:00 12/29/19 09:13 Sodium Chloride Flush Syringe 10 Ml IV 10 ml BID SHANEL Administration Sodium Chloride 10 ml 12/18/19 13:31 Sodium Chloride Flush Syringe 10 Ml IV PRN PRN LINE FLUSH Nutrition/Malnutrition Assess - Dietary Evaluation Nutrition/Malnutrition Findings: Nutrition Notes Start: 12/19/19 08:16 Freq: Status: Active Protocol: Document 12/28/19 08:40 LM (Rec: 12/28/19 08:46 LM [id number]) Nutrition Notes Initial or Follow up Reassessment Current Diagnosis Diabetes,Sepsis,Hypertension, Heart Failure,Respiratory Failure Other Pertinent Diagnosis Suspected COVID-19, pneu Current Diet no diet Labs/Tests Na 157 K 3.4 BG 193 Pertinent Medications Humalog Height 6 ft 2 in Weight 117 kg [place] Body Weight (kg) 86.36 BMI 33.1 Weight Status Obese Subjective/Other Information MD consult to evaluate nutritional intake. Pt now intubated. RN stated that pt needs to start TF. Burn Absent Trauma Absent Current % PO Negligible Minimum of two criteria No physical signs of malnutrition #1 Nutrition Diagnosis Inadequate oral intake Diagnosis Progress(for reassessment Continues documentation) Is patient on ventilator? Yes Is Patient Ambulatory and/or Out of Bed No REE-([facility]-confined to bed) 2469.960 Kcal/Kg value to use for calculation 17 Approximate Energy Requirements Using 1989 kcal/Kg Calculation Used for Recommendations Kcal/kg Additional Notes Protein: 172g (>/=2g/kg using IBW 86kg) Fluid 1ml/kcal Nutrition Intervention Change Diet Order: TF Nutrition Support: Vital AF 1.2 at 65ml/hr Flush 200ml q4h for hypernatremia Flush 100ml q4h once resolved Kcal 1,872 Protein (gm) 117 Fluid (mL) 1,265 Goal #1 TF start/tolerance Anticipated Discharge Needs: unable to determine at this time Follow-Up By: 12/30/19 Additional Comments F/U for TF start/tolerance
[2019-12-29] MEDS: LINEZOLID 600 MG/300 ML BAG IV SCH ×2 (17:25→22:02)
[2019-12-29 20:37] LABS: ABG Base Excess 3.7 mmol/L (-2.0-3.0); ABG HCO3 32.1 mmol/L (20.0-26.0); ABG Methemoglobin 0.8 % (0.0-1.5); ABG Oxygen Saturation 87.6 % (95.0-99.0); ABG PCO2 73.1 mm Hg; ABG PH 7.261 pH Units (7.350-7.450); ABG PO2 60.3 mm Hg (80.0-90.0)
[2019-12-29] MEDS ORDERED: INSULIN GLARGINE 100 UNITS/ML SUB-Q SCH ×2 (22:00)
[2019-12-30] MEDS: fentaNYL DRIP Premix 2,000 MCG/100 ML BAG IV SCH ×2 (03:09→21:55)
[2019-12-30] MEDS: NORepinephrine/NS 4 MG-250 ML 4 MG/250 ML BAG IV SCH ×4 (03:12→17:35)
[2019-12-30 05:05] LABS: ABG HCO3 30.9 mmol/L (20.0-26.0); ABG Methemoglobin 0.7 % (0.0-1.5); ABG Oxygen Saturation 88.3 % (95.0-99.0); ABG PCO2 58.2 mm Hg; ABG PH 7.343 pH Units (7.350-7.450); ABG PO2 54.3 mm Hg (80.0-90.0)
[2019-12-30 05:29] LABS: Mean Corpuscular HGB Conc 29 % (32-34); Mean Corpuscular Volume 83 fl (84-94); Platelet Count 191 K/mm3 (140-440); Red Blood Count 3.91 M/mm3 (3.65-5.03)
[2019-12-30 05:36] LABS: Hematocrit 32.4 % (35.5-45.6); Hemoglobin 9.4 gm/dl (11.8-15.2); Red Cell Distribution Width 20.2 % (13.2-15.2)
[2019-12-30 05:47] LABS: Calcium 10.1 mg/dL (8.4-10.2)
[2019-12-30] MEDS: INSULIN LISPRO 100 UNIT/ML SUB-Q SCH ×4 (06:18→17:42)
[2019-12-30] MEDS: LEVOTHYROXINE 88 MCG TAB PO SCH (06:19)
[2019-12-30] MEDS: IPRATROPIUM/ALBUTEROL SULFATE 3 ML AMPUL.NEB IH SCH ×3 (09:22→19:37)
[2019-12-30] MEDS ORDERED: INSULIN GLARGINE 100 UNITS/ML SUB-Q SCH ×2 (10:00→22:00)
[2019-12-30] MEDS: HEPARIN 5,000 UNIT/1 ML VIAL SUB-Q SCH ×2 (10:31→21:58)
[2019-12-30] MEDS: FUROSEMIDE 20 MG/2 ML INJ IV SCH (10:31)
[2019-12-30] MEDS: FAMOTIDINE 20 MG TAB PO SCH ×2 (10:32→21:57)
[2019-12-30] MEDS: FOLIC ACID 1 MG TAB PO SCH (10:32)
[2019-12-30] MEDS: ASPIRIN 81 MG TAB CHEW PO SCH (10:32)
--- NOTE | 2019-12-30 10:37 | Progress Note ---
Assessment and Plan Acute Hypoxemic Respiratory Failure Severe Sepsis with Shock Bilateral Pneumonia JAGDEEP secondary to ATN, non oliguric Hypernatremia Morbid Obesity H/O CHF JOE - wean vasopressors for MAP > 65 mmHg - continue care as below otherwise; - Daily SAT and SBT assessment as tolerated - accuchecks with glycemic control per SSI (While critically ill target blood glucose of 140-180 mg/dL; avoid hypoglycemia) - sedation for target RASS 0 to -1 - continue to wean supplemental oxygen for target O2 sat's > 92% acutely - continue bronchodilators with pulmonary hygiene per RT - VAP bundle addressed - lung protective strategies - wean per pulmonary driven protocols otherwise - continue to avoid benzodiazepine's, reduce the possibility of delirium - resume AB's per ID rec's - prn analgesia per CPOT score - Maintenance of sleep-wake cycle - continue to avoid benzodiazepine's, reduce the possibility of delirium - continue enteral nutritional support at goal rate as tolerated - G.I. & VTE prophylaxis - PT/OT/ROM exercises - continue mobility protocols for pressure ulcer prophylaxis - repeat COVID-19 test negative - continue aspiration precautions - continue accuchecks with glycemic control per SSI (While critically ill target blood glucose of 140-180 mg/dL; avoid hypoglycemia) - Monitor hemodynamics closely - continue other care per attending / other consultants - discharge planning ongoing concurrently - LTAC evaluation requested .... Re-evaluate in am & prn CONDITION: CRITICAL PROGNOSIS: GUARDED CODE STATUS: FULL CODE The high probability of a clinically significant, sudden or life-threatening deterioration of the [respiratory, cardiovascular, GI & neurologic] system(s) required my full and direct attention, intervention and personal management. The aggregate critical care time was [32] minutes without overlap. Time includes spent on; [x] Data Review and interpretation [x] Patient assessment and monitoring of vital signs [x] Documentation [x] Medication orders and management Subjective Date of service: 12/30/19 Principal diagnosis: Ac. Hypoxemic Resp Failure; Septic Shock; Magdiel. PNA; PUI COVID-19; CHF; JOE Interval history: Patient is seen today for: Acute Hypoxemic Respiratory Failure; Severe Sepsis with Shock; Bilateral Pneumonia; PUI COVID-19; Morbid Obesity; H/O CHF; JOE Seen and examined at bedside; 24hour events reviewed; nursing and respiratory care staff consulted; no adverse overnight events reported to me; resting peacefully in bed; remains on MVS; FiO2 down to 45% with room to wean; no emesis or overt aspiration; on vasopressor support, episodes of bradycardia Objective Vital Signs - 12hr 12/29/19 12/29/19 12/29/19 22:43 23:00 23:30 Temperature Pulse Rate 75 68 67 Pulse Rate [ Bilateral] Respiratory 20 20 Rate Respiratory Rate [Bilateral ] Blood Pressure 114/54 114/54 O2 Sat by Pulse 98 97 Oximetry 12/30/19 12/30/19 12/30/19 00:00 00:30 00:35 Temperature 98.2 F Pulse Rate 69 71 72 Pulse Rate [ Bilateral] Respiratory 20 19 Rate Respiratory Rate [Bilateral ] Blood Pressure 110/51 106/51 106/51 O2 Sat by Pulse 96 96 96 Oximetry 12/30/19 12/30/19 12/30/19 01:00 01:30 02:00 Temperature Pulse Rate 76 74 73 Pulse Rate [ Bilateral] Respiratory 20 20 20 Rate Respiratory Rate [Bilateral ] Blood Pressure 101/48 100/47 99/50 O2 Sat by Pulse 95 95 95 Oximetry 12/30/19 12/30/19 12/30/19 02:30 03:00 03:30 Temperature Pulse Rate 79 85 Pulse Rate [ Bilateral] Respiratory 20 20 Rate Respiratory Rate [Bilateral ] Blood Pressure 104/48 O2 Sat by Pulse 92 78 L Oximetry 12/30/19 12/30/19 12/30/19 04:00 04:30 04:42 Temperature 99 F Pulse Rate 88 85 86 Pulse Rate [ Bilateral] Respiratory 23 20 Rate Respiratory Rate [Bilateral ] Blood Pressure 98/53 92/48 92/48 O2 Sat by Pulse 92 93 91 Oximetry 12/30/19 12/30/19 12/30/19 05:00 05:30 06:00 Temperature Pulse Rate 89 82 80 Pulse Rate [ Bilateral] Respiratory 20 21 20 Rate Respiratory Rate [Bilateral ] Blood Pressure 101/49 101/52 110/54 O2 Sat by Pulse 93 91 90 Oximetry 12/30/19 12/30/19 12/30/19 06:30 07:00 07:30 Temperature Pulse Rate 82 82 81 Pulse Rate [ Bilateral] Respiratory 20 20 20 Rate Respiratory Rate [Bilateral ] Blood Pressure 104/54 102/52 100/50 O2 Sat by Pulse 90 92 Oximetry 06/25/20 06/25/20 06/25/20 07:44 08:00 08:30 Temperature 99.6 F 99.6 F Pulse Rate 85 83 Pulse Rate [ Bilateral] Respiratory 21 14 Rate Respiratory Rate [Bilateral ] Blood Pressure 99/49 104/45 O2 Sat by Pulse 91 91 Oximetry 12/30/19 12/30/19 12/30/19 09:00 09:22 09:27 Temperature Pulse Rate 78 78 Pulse Rate [ 86 Bilateral] Respiratory 21 Rate Respiratory 20 Rate [Bilateral ] Blood Pressure 107/51 99/50 O2 Sat by Pulse 89 91 Oximetry 12/30/19 12/30/19 09:30 10:00 Temperature Pulse Rate 83 78 Pulse Rate [ Bilateral] Respiratory 16 20 Rate Respiratory Rate [Bilateral ] Blood Pressure 113/61 96/47 O2 Sat by Pulse 94 89 Oximetry Constitutional: no acute distress, alert, other (elderly obese AAM with mildly increrased respiratory effort at rest) Eyes: non-icteric ENT: oropharynx moist, other Neck: supple, no lymphadenopathy, no JVD Effort: mildly labored Ascultation: Bilateral: diminished breath sounds, rhonchi Percussion: Bilateral: not dull Cardiovascular: regular rate and rhythm, other (S1,S2) Gastrointestinal: normoactive bowel sounds, soft, non-tender, other (protuberant) Integumentary: rash (stasis dermatyitis) Extremities: no cyanosis, pink and warm, pulses normal, no ischemia or petechiae, edema (trace) Neurologic: normal mental status, non-focal exam, pupils equal and round, CN II- XII normal, motor strength normal and (obeys simple commands) Psychiatric: mood appropriate, affect normal CBC and BMP: 01/06/20 04:58 01/06/20 04:58 ABG, PT/INR, D-dimer: ABG ABG pH 7.343 pH Units (7.350-7.450) L 12/30/19 04:45 ABG pCO2 58.2 mm Hg 12/30/19 04:45 ABG pO2 54.3 mm Hg (80.0-90.0) L 12/30/19 04:45 ABG O2 Saturation 88.3 % (95.0-99.0) L 12/30/19 04:45 PT/INR, D-dimer PT 14.0 Sec. (12.2-14.9) 12/18/19 14:45 INR 1.10 (0.87-1.13) 12/18/19 14:45 D-Dimer 534.45 ng/mlDDU (0-234) H 12/18/19 14:45 Abnormal lab findings: Abnormal Labs 12/18/19 12/18/19 12/18/19 12:23 14:45 14:45 WBC Hgb 10.4 L Hct 35.2 L MCV MCH 25 L MCHC 30 L RDW 18.8 H Lymph % (Auto) [place] % (Auto) 11.6 H Eos % (Auto) 4.8 H Lymph # [place] # 1.0 H Seg Neutrophils % Monocytes % (Manual) Monocytes # (Manual) D-Dimer ABG pH ABG pO2 ABG HCO3 ABG O2 Saturation ABG Base Excess ABG Hemoglobin Oxyhemoglobin Sodium Potassium Chloride Carbon Dioxide BUN Creatinine Glucose POC Glucose 328 H Lactic Acid Calcium Magnesium AST ALT Lactate Dehydrogenase Total Creatine Kinase 40 L C-Reactive Protein Albumin Urine WBC (Auto) Urine Total Protein Digoxin Salicylates Acetaminophen 12/18/19 12/18/19 12/18/19 14:45 14:45 14:45 WBC Hgb Hct MCV MCH MCHC RDW Lymph % (Auto) [place] % (Auto) Eos % (Auto) Lymph # [place] # Seg Neutrophils % Monocytes % (Manual) Monocytes # (Manual) D-Dimer 534.45 H ABG pH ABG pO2 ABG HCO3 ABG O2 Saturation ABG Base Excess ABG Hemoglobin Oxyhemoglobin Sodium 156 H Potassium Chloride 112.3 H Carbon Dioxide 31 H BUN 32 H Creatinine Glucose 328 H POC Glucose Lactic Acid Calcium Magnesium AST ALT Lactate Dehydrogenase 235 H Total Creatine Kinase C-Reactive Protein 8.50 H Albumin 3.6 L Urine WBC (Auto) Urine Total Protein Digoxin 0.3 L Salicylates < 0.3 L Acetaminophen 12/18/19 12/18/19 12/18/19 14:45 14:45 16:00 WBC Hgb Hct MCV MCH MCHC RDW Lymph % (Auto) [place] % (Auto) Eos % (Auto) Lymph # [place] # Seg Neutrophils % Monocytes % (Manual) Monocytes # (Manual) D-Dimer ABG pH ABG pO2 69.8 L ABG HCO3 31.8 H ABG O2 Saturation ABG Base Excess 5.4 H ABG Hemoglobin 10.0 L Oxyhemoglobin 92.9 L Sodium Potassium Chloride Carbon Dioxide BUN Creatinine Glucose 314 H POC Glucose Lactic Acid Calcium Magnesium AST ALT Lactate Dehydrogenase 236 H Total Creatine Kinase C-Reactive Protein 8.40 H Albumin Urine WBC (Auto) Urine Total Protein Digoxin Salicylates Acetaminophen < 5.0 L 12/18/19 12/18/19 12/18/19 16:35 18:30 22:56 WBC Hgb Hct MCV MCH MCHC RDW Lymph % (Auto) [place] % (Auto) Eos % (Auto) Lymph # [place] # Seg Neutrophils % Monocytes % (Manual) Monocytes # (Manual) D-Dimer ABG pH ABG pO2 ABG HCO3 ABG O2 Saturation ABG Base Excess ABG Hemoglobin Oxyhemoglobin Sodium Potassium Chloride Carbon Dioxide BUN Creatinine Glucose POC Glucose 310 H 353 H Lactic Acid 2.50 H* Calcium Magnesium AST ALT Lactate Dehydrogenase Total Creatine Kinase C-Reactive Protein Albumin Urine WBC (Auto) Urine Total Protein Digoxin Salicylates Acetaminophen 12/19/19 12/19/19 12/19/19 04:13 04:13 06:00 WBC Hgb 10.0 L Hct 34.2 L MCV MCH 25 L MCHC 29 L RDW 19.0 H Lymph % (Auto) [place] % (Auto) 10.1 H Eos % (Auto) Lymph # [place] # 1.1 H Seg Neutrophils % 71.8 H Monocytes % (Manual) Monocytes # (Manual) D-Dimer ABG pH ABG pO2 186.5 H ABG HCO3 27.8 H ABG O2 Saturation 99.1 H ABG Base Excess ABG Hemoglobin 10.4 L Oxyhemoglobin Sodium 157 H Potassium Chloride 119.1 H Carbon Dioxide BUN 26 H Creatinine Glucose 302 H POC Glucose Lactic Acid Calcium 7.9 L Magnesium AST 85 H ALT 61 H Lactate Dehydrogenase Total Creatine Kinase C-Reactive Protein Albumin 3.0 L Urine WBC (Auto) Urine Total Protein Digoxin Salicylates Acetaminophen 12/19/19 12/19/19 12/19/19 08:30 11:55 16:50 WBC Hgb Hct MCV MCH MCHC RDW Lymph % (Auto) [place] % (Auto) Eos % (Auto) Lymph # [place] # Seg Neutrophils % Monocytes % (Manual) Monocytes # (Manual) D-Dimer ABG pH ABG pO2 ABG HCO3 ABG O2 Saturation ABG Base Excess ABG Hemoglobin Oxyhemoglobin Sodium Potassium Chloride Carbon Dioxide BUN Creatinine Glucose POC Glucose 264 H 251 H Lactic Acid Calcium Magnesium AST ALT Lactate Dehydrogenase Total Creatine Kinase C-Reactive Protein Albumin Urine WBC (Auto) 7.0 H Urine Total Protein Digoxin Salicylates Acetaminophen 12/19/19 12/19/19 12/20/19 17:41 23:42 03:35 WBC Hgb Hct MCV MCH MCHC RDW Lymph % (Auto) [place] % (Auto) Eos % (Auto) Lymph # [place] # Seg Neutrophils % Monocytes % (Manual) Monocytes # (Manual) D-Dimer ABG pH ABG pO2 ABG HCO3 27.7 H ABG O2 Saturation ABG Base Excess ABG Hemoglobin 11.6 L Oxyhemoglobin 94.9 L Sodium Potassium Chloride Carbon Dioxide BUN Creatinine Glucose POC Glucose 180 H 205 H Lactic Acid Calcium Magnesium AST ALT Lactate Dehydrogenase Total Creatine Kinase C-Reactive Protein Albumin Urine WBC (Auto) Urine Total Protein Digoxin Salicylates Acetaminophen 12/20/19 12/20/19 12/20/19 04:45 04:45 05:27 WBC Hgb 9.4 L Hct 31.4 L MCV MCH 25 L MCHC 30 L RDW 19.4 H Lymph % (Auto) [place] % (Auto) 10.2 H Eos % (Auto) 6.0 H Lymph # 0.9 L [place] # Seg Neutrophils % Monocytes % (Manual) Monocytes # (Manual) D-Dimer ABG pH ABG pO2 ABG HCO3 ABG O2 Saturation ABG Base Excess ABG Hemoglobin Oxyhemoglobin Sodium 153 H Potassium Chloride 114.6 H Carbon Dioxide BUN Creatinine Glucose 170 H POC Glucose 188 H Lactic Acid Calcium 7.9 L Magnesium AST ALT Lactate Dehydrogenase Total Creatine Kinase C-Reactive Protein Albumin Urine WBC (Auto) Urine Total Protein Digoxin Salicylates Acetaminophen 12/20/19 12/20/19 12/21/19 12:26 18:20 00:20 WBC Hgb Hct MCV MCH MCHC RDW Lymph % (Auto) [place] % (Auto) Eos % (Auto) Lymph # [place] # Seg Neutrophils % Monocytes % (Manual) Monocytes # (Manual) D-Dimer ABG pH ABG pO2 ABG HCO3 ABG O2 Saturation ABG Base Excess ABG Hemoglobin Oxyhemoglobin Sodium Potassium Chloride Carbon Dioxide BUN Creatinine Glucose POC Glucose 200 H 263 H 218 H Lactic Acid Calcium Magnesium AST ALT Lactate Dehydrogenase Total Creatine Kinase C-Reactive Protein Albumin Urine WBC (Auto) Urine Total Protein Digoxin Salicylates Acetaminophen 12/21/19 12/21/19 12/21/19 04:38 05:26 12:35 WBC Hgb Hct MCV MCH MCHC RDW Lymph % (Auto) [place] % (Auto) Eos % (Auto) Lymph # [place] # Seg Neutrophils % Monocytes % (Manual) Monocytes # (Manual) D-Dimer ABG pH ABG pO2 ABG HCO3 ABG O2 Saturation ABG Base Excess ABG Hemoglobin Oxyhemoglobin Sodium 149 H Potassium 3.5 L Chloride 110.5 H Carbon Dioxide BUN Creatinine Glucose 158 H POC Glucose 193 H 193 H Lactic Acid Calcium Magnesium AST ALT Lactate Dehydrogenase Total Creatine Kinase C-Reactive Protein Albumin Urine WBC (Auto) Urine Total Protein Digoxin Salicylates Acetaminophen 12/21/19 12/22/19 12/22/19 18:29 00:03 05:15 WBC Hgb 10.3 L Hct 34.7 L MCV MCH 25 L MCHC 30 L RDW 19.4 H Lymph % (Auto) 9.0 L [place] % (Auto) 12.3 H Eos % (Auto) 5.0 H Lymph # 0.5 L [place] # Seg Neutrophils % 73.2 H Monocytes % (Manual) Monocytes # (Manual) D-Dimer ABG pH ABG pO2 ABG HCO3 ABG O2 Saturation ABG Base Excess ABG Hemoglobin Oxyhemoglobin Sodium Potassium Chloride Carbon Dioxide BUN Creatinine Glucose POC Glucose 186 H 143 H Lactic Acid Calcium Magnesium AST ALT Lactate Dehydrogenase Total Creatine Kinase C-Reactive Protein Albumin Urine WBC (Auto) Urine Total Protein Digoxin Salicylates Acetaminophen 12/22/19 12/22/19 12/22/19 05:15 06:02 12:13 WBC Hgb Hct MCV MCH MCHC RDW Lymph % (Auto) [place] % (Auto) Eos % (Auto) Lymph # [place] # Seg Neutrophils % Monocytes % (Manual) Monocytes # (Manual) D-Dimer ABG pH ABG pO2 ABG HCO3 ABG O2 Saturation ABG Base Excess ABG Hemoglobin Oxyhemoglobin Sodium 152 H Potassium Chloride 113.5 H Carbon Dioxide BUN Creatinine Glucose 126 H POC Glucose 144 H 159 H Lactic Acid Calcium Magnesium AST ALT Lactate Dehydrogenase Total Creatine Kinase C-Reactive Protein Albumin Urine WBC (Auto) Urine Total Protein Digoxin Salicylates Acetaminophen 12/22/19 12/22/19 12/23/19 18:03 23:50 05:27 WBC Hgb Hct MCV MCH MCHC RDW Lymph % (Auto) [place] % (Auto) Eos % (Auto) Lymph # [place] # Seg Neutrophils % Monocytes % (Manual) Monocytes # (Manual) D-Dimer ABG pH ABG pO2 ABG HCO3 ABG O2 Saturation ABG Base Excess ABG Hemoglobin Oxyhemoglobin Sodium Potassium Chloride Carbon Dioxide BUN Creatinine Glucose POC Glucose 140 H 227 H 185 H Lactic Acid Calcium Magnesium AST ALT Lactate Dehydrogenase Total Creatine Kinase C-Reactive Protein Albumin Urine WBC (Auto) Urine Total Protein Digoxin Salicylates Acetaminophen 12/23/19 12/23/19 12/23/19 12:13 16:05 16:40 WBC Hgb Hct MCV MCH MCHC RDW Lymph % (Auto) [place] % (Auto) Eos % (Auto) Lymph # [place] # Seg Neutrophils % Monocytes % (Manual) Monocytes # (Manual) D-Dimer ABG pH 7.259 L ABG pO2 76.2 L ABG HCO3 30.6 H ABG O2 Saturation 94.6 L ABG Base Excess ABG Hemoglobin 11.5 L Oxyhemoglobin 92.2 L Sodium 163 H* D Potassium 3.4 L Chloride 120.1 H Carbon Dioxide BUN Creatinine Glucose 162 H POC Glucose 132 H Lactic Acid Calcium Magnesium AST ALT Lactate Dehydrogenase Total Creatine Kinase C-Reactive Protein Albumin Urine WBC (Auto) Urine Total Protein Digoxin Salicylates Acetaminophen 12/23/19 12/24/19 12/24/19 17:53 00:48 04:20 WBC Hgb Hct MCV MCH MCHC RDW Lymph % (Auto) [place] % (Auto) Eos % (Auto) Lymph # [place] # Seg Neutrophils % Monocytes % (Manual) Monocytes # (Manual) D-Dimer ABG pH ABG pO2 ABG HCO3 30.4 H ABG O2 Saturation ABG Base Excess 3.9 H ABG Hemoglobin 10.3 L Oxyhemoglobin 94.4 L Sodium Potassium Chloride Carbon Dioxide BUN Creatinine Glucose POC Glucose 180 H 174 H Lactic Acid Calcium Magnesium AST ALT Lactate Dehydrogenase Total Creatine Kinase C-Reactive Protein Albumin Urine WBC (Auto) Urine Total Protein Digoxin Salicylates Acetaminophen 12/24/19 12/24/19 12/24/19 04:53 04:53 11:50 WBC Hgb 9.7 L Hct 33.2 L MCV MCH 25 L MCHC 29 L RDW 20.1 H Lymph % (Auto) [place] % (Auto) Eos % (Auto) Lymph # [place] # Seg Neutrophils % Monocytes % (Manual) 15.0 H Monocytes # (Manual) 0.9 H D-Dimer ABG pH ABG pO2 ABG HCO3 ABG O2 Saturation ABG Base Excess ABG Hemoglobin Oxyhemoglobin Sodium 163 H* Potassium 3.2 L Chloride 122.6 H Carbon Dioxide BUN Creatinine Glucose 168 H POC Glucose 190 H Lactic Acid Calcium Magnesium AST ALT Lactate Dehydrogenase Total Creatine Kinase C-Reactive Protein Albumin Urine WBC (Auto) Urine Total Protein Digoxin Salicylates Acetaminophen 12/24/19 12/24/19 12/24/19 15:00 16:28 21:15 WBC Hgb Hct MCV MCH MCHC RDW Lymph % (Auto) [place] % (Auto) Eos % (Auto) Lymph # [place] # Seg Neutrophils % Monocytes % (Manual) Monocytes # (Manual) D-Dimer ABG pH ABG pO2 ABG HCO3 ABG O2 Saturation ABG Base Excess ABG Hemoglobin Oxyhemoglobin Sodium 165 H* D 163 H* Potassium Chloride Carbon Dioxide BUN Creatinine Glucose POC Glucose 160 H Lactic Acid Calcium Magnesium AST ALT Lactate Dehydrogenase Total Creatine Kinase C-Reactive Protein Albumin Urine WBC (Auto) Urine Total Protein Digoxin Salicylates Acetaminophen 12/25/19 12/25/19 12/25/19 00:31 05:38 05:46 WBC Hgb 9.7 L Hct 32.5 L MCV MCH 25 L MCHC 30 L RDW 19.4 H Lymph % (Auto) [place] % (Auto) Eos % (Auto) Lymph # [place] # Seg Neutrophils % Monocytes % (Manual) Monocytes # (Manual) D-Dimer ABG pH ABG pO2 ABG HCO3 ABG O2 Saturation ABG Base Excess ABG Hemoglobin Oxyhemoglobin Sodium Potassium Chloride Carbon Dioxide BUN Creatinine Glucose POC Glucose 182 H 194 H Lactic Acid Calcium Magnesium AST ALT Lactate Dehydrogenase Total Creatine Kinase C-Reactive Protein Albumin Urine WBC (Auto) Urine Total Protein Digoxin Salicylates Acetaminophen 12/25/19 12/25/19 12/25/19 05:46 11:35 11:38 WBC Hgb Hct MCV MCH MCHC RDW Lymph % (Auto) [place] % (Auto) Eos % (Auto) Lymph # [place] # Seg Neutrophils % Monocytes % (Manual) Monocytes # (Manual) D-Dimer ABG pH 7.330 L ABG pO2 65.7 L ABG HCO3 32.6 H ABG O2 Saturation 92.5 L ABG Base Excess 5.3 H ABG Hemoglobin 10.4 L Oxyhemoglobin 90.0 L Sodium 166 H* Potassium 2.9 L* Chloride 124.5 H Carbon Dioxide BUN Creatinine Glucose 190 H POC Glucose 192 H Lactic Acid Calcium Magnesium AST ALT Lactate Dehydrogenase Total Creatine Kinase C-Reactive Protein Albumin Urine WBC (Auto) Urine Total Protein Digoxin Salicylates Acetaminophen 12/25/19 12/25/19 12/25/19 13:01 16:45 17:20 WBC Hgb Hct MCV MCH MCHC RDW Lymph % (Auto) [place] % (Auto) Eos % (Auto) Lymph # [place] # Seg Neutrophils % Monocytes % (Manual) Monocytes # (Manual) D-Dimer ABG pH 7.296 L ABG pO2 101.5 H ABG HCO3 33.2 H ABG O2 Saturation ABG Base Excess 5.3 H ABG Hemoglobin 9.6 L Oxyhemoglobin 94.6 L Sodium 174 H* Potassium Chloride Carbon Dioxide BUN Creatinine Glucose POC Glucose Lactic Acid Calcium Magnesium AST ALT Lactate Dehydrogenase Total Creatine Kinase C-Reactive Protein Albumin Urine WBC (Auto) Urine Total Protein < 4 L Digoxin Salicylates Acetaminophen 12/25/19 12/25/19 12/26/19 17:48 18:50 00:43 WBC Hgb Hct MCV MCH MCHC RDW Lymph % (Auto) [place] % (Auto) Eos % (Auto) Lymph # [place] # Seg Neutrophils % Monocytes % (Manual) Monocytes # (Manual) D-Dimer ABG pH ABG pO2 ABG HCO3 ABG O2 Saturation ABG Base Excess ABG Hemoglobin Oxyhemoglobin Sodium 166 H* 164 H* Potassium Chloride 127.3 H Carbon Dioxide BUN Creatinine Glucose 220 H POC Glucose 252 H Lactic Acid Calcium Magnesium AST ALT Lactate Dehydrogenase Total Creatine Kinase C-Reactive Protein Albumin Urine WBC (Auto) Urine Total Protein Digoxin Salicylates Acetaminophen 12/26/19 12/26/19 12/26/19 05:31 08:07 08:07 WBC 4.3 L Hgb 9.6 L Hct 32.1 L MCV MCH 26 L MCHC 30 L RDW 20.5 H Lymph % (Auto) [place] % (Auto) Eos % (Auto) Lymph # [place] # Seg Neutrophils % Monocytes % (Manual) Monocytes # (Manual) D-Dimer ABG pH ABG pO2 ABG HCO3 ABG O2 Saturation ABG Base Excess ABG Hemoglobin Oxyhemoglobin Sodium 162 H* Potassium Chloride 122.1 H Carbon Dioxide BUN Creatinine Glucose 247 H POC Glucose 187 H Lactic Acid Calcium Magnesium AST ALT Lactate Dehydrogenase Total Creatine Kinase C-Reactive Protein Albumin Urine WBC (Auto) Urine Total Protein Digoxin Salicylates Acetaminophen 12/26/19 12/26/19 12/26/19 08:07 12:20 16:25 WBC Hgb Hct MCV MCH MCHC RDW Lymph % (Auto) [place] % (Auto) Eos % (Auto) Lymph # [place] # Seg Neutrophils % Monocytes % (Manual) Monocytes # (Manual) D-Dimer ABG pH 7.290 L ABG pO2 73.2 L ABG HCO3 33.2 H ABG O2 Saturation 94.9 L ABG Base Excess 5.2 H ABG Hemoglobin 10.0 L Oxyhemoglobin 92.5 L Sodium 159 H Potassium Chloride Carbon Dioxide BUN Creatinine Glucose POC Glucose 234 H Lactic Acid Calcium Magnesium AST ALT Lactate Dehydrogenase Total Creatine Kinase C-Reactive Protein Albumin Urine WBC (Auto) Urine Total Protein Digoxin Salicylates Acetaminophen 12/26/19 12/26/19 12/26/19 17:33 22:35 23:30 WBC Hgb Hct MCV MCH MCHC RDW Lymph % (Auto) [place] % (Auto) Eos % (Auto) Lymph # [place] # Seg Neutrophils % Monocytes % (Manual) Monocytes # (Manual) D-Dimer ABG pH ABG pO2 ABG HCO3 ABG O2 Saturation ABG Base Excess ABG Hemoglobin Oxyhemoglobin Sodium Potassium Chloride Carbon Dioxide BUN Creatinine Glucose POC Glucose 244 H 208 H 287 H Lactic Acid Calcium Magnesium AST ALT Lactate Dehydrogenase Total Creatine Kinase C-Reactive Protein Albumin Urine WBC (Auto) Urine Total Protein Digoxin Salicylates Acetaminophen 12/27/19 12/27/19 12/27/19 03:48 03:48 03:48 WBC Hgb 10.1 L Hct 35.4 L MCV MCH 25 L MCHC 29 L RDW 20.1 H Lymph % (Auto) [place] % (Auto) Eos % (Auto) Lymph # [place] # Seg Neutrophils % Monocytes % (Manual) Monocytes # (Manual) D-Dimer ABG pH ABG pO2 ABG HCO3 ABG O2 Saturation ABG Base Excess ABG Hemoglobin Oxyhemoglobin Sodium 160 H Potassium Chloride 118.8 H Carbon Dioxide 33 H BUN Creatinine Glucose 217 H POC Glucose Lactic Acid Calcium Magnesium 2.70 H AST ALT Lactate Dehydrogenase Total Creatine Kinase C-Reactive Protein Albumin Urine WBC (Auto) Urine Total Protein Digoxin Salicylates Acetaminophen 12/27/19 12/27/19 12/27/19 05:50 11:58 16:05 WBC Hgb Hct MCV MCH MCHC RDW Lymph % (Auto) [place] % (Auto) Eos % (Auto) Lymph # [place] # Seg Neutrophils % Monocytes % (Manual) Monocytes # (Manual) D-Dimer ABG pH 7.180 L* ABG pO2 73.6 L ABG HCO3 34.8 H ABG O2 Saturation 92.7 L ABG Base Excess 3.8 H ABG Hemoglobin 12.0 L Oxyhemoglobin 90.2 L Sodium Potassium Chloride Carbon Dioxide BUN Creatinine Glucose POC Glucose 224 H 218 H Lactic Acid Calcium Magnesium AST ALT Lactate Dehydrogenase Total Creatine Kinase C-Reactive Protein Albumin Urine WBC (Auto) Urine Total Protein Digoxin Salicylates Acetaminophen 12/27/19 12/27/19 12/27/19 18:05 19:50 21:53 WBC Hgb Hct MCV MCH MCHC RDW Lymph % (Auto) [place] % (Auto) Eos % (Auto) Lymph # [place] # Seg Neutrophils % Monocytes % (Manual) Monocytes # (Manual) D-Dimer ABG pH 7.328 L ABG pO2 49.9 L ABG HCO3 33.3 H ABG O2 Saturation 87.1 L ABG Base Excess 5.7 H ABG Hemoglobin 11.2 L Oxyhemoglobin 84.8 L Sodium Potassium Chloride Carbon Dioxide BUN Creatinine Glucose POC Glucose 214 H 178 H Lactic Acid Calcium Magnesium AST ALT Lactate Dehydrogenase Total Creatine Kinase C-Reactive Protein Albumin Urine WBC (Auto) Urine Total Protein Digoxin Salicylates Acetaminophen 12/28/19 12/28/19 12/28/19 00:42 04:37 04:37 WBC Hgb 9.8 L Hct 33.5 L MCV MCH 25 L MCHC 29 L RDW 21.1 H Lymph % (Auto) [place] % (Auto) Eos % (Auto) Lymph # [place] # Seg Neutrophils % Monocytes % (Manual) Monocytes # (Manual) D-Dimer ABG pH ABG pO2 ABG HCO3 ABG O2 Saturation ABG Base Excess ABG Hemoglobin Oxyhemoglobin Sodium 157 H Potassium 3.4 L Chloride 117.5 H Carbon Dioxide BUN Creatinine Glucose 193 H POC Glucose 157 H Lactic Acid Calcium Magnesium AST ALT Lactate Dehydrogenase Total Creatine Kinase C-Reactive Protein Albumin Urine WBC (Auto) Urine Total Protein Digoxin Salicylates Acetaminophen 12/28/19 12/28/19 12/28/19 04:52 05:19 12:05 WBC Hgb Hct MCV MCH MCHC RDW Lymph % (Auto) [place] % (Auto) Eos % (Auto) Lymph # [place] # Seg Neutrophils % Monocytes % (Manual) Monocytes # (Manual) D-Dimer ABG pH ABG pO2 51.7 L ABG HCO3 28.7 H ABG O2 Saturation 89.9 L ABG Base Excess 4.1 H ABG Hemoglobin 9.7 L Oxyhemoglobin 87.7 L Sodium Potassium Chloride Carbon Dioxide BUN Creatinine Glucose POC Glucose 202 H 248 H Lactic Acid Calcium Magnesium AST ALT Lactate Dehydrogenase Total Creatine Kinase C-Reactive Protein Albumin Urine WBC (Auto) Urine Total Protein Digoxin Salicylates Acetaminophen 12/28/19 12/28/19 12/28/19 18:11 21:15 23:22 WBC Hgb Hct MCV MCH MCHC RDW Lymph % (Auto) [place] % (Auto) Eos % (Auto) Lymph # [place] # Seg Neutrophils % Monocytes % (Manual) Monocytes # (Manual) D-Dimer ABG pH ABG pO2 ABG HCO3 ABG O2 Saturation ABG Base Excess ABG Hemoglobin Oxyhemoglobin Sodium Potassium Chloride Carbon Dioxide BUN Creatinine Glucose POC Glucose 226 H 217 H 227 H Lactic Acid Calcium Magnesium AST ALT Lactate Dehydrogenase Total Creatine Kinase C-Reactive Protein Albumin Urine WBC (Auto) Urine Total Protein Digoxin Salicylates Acetaminophen 12/29/19 12/29/19 12/29/19 04:09 04:59 04:59 WBC 11.1 H Hgb 9.3 L Hct 31.1 L MCV 81 L MCH 24 L MCHC 30 L RDW 19.9 H Lymph % (Auto) [place] % (Auto) Eos % (Auto) Lymph # [place] # Seg Neutrophils % Monocytes % (Manual) Monocytes # (Manual) D-Dimer ABG pH 7.473 H ABG pO2 126.1 H ABG HCO3 29.2 H ABG O2 Saturation ABG Base Excess 5.1 H ABG Hemoglobin 8.4 L Oxyhemoglobin Sodium 157 H Potassium 3.2 L Chloride 118.2 H Carbon Dioxide BUN Creatinine 1.7 H Glucose 229 H POC Glucose Lactic Acid Calcium Magnesium AST ALT Lactate Dehydrogenase Total Creatine Kinase C-Reactive Protein Albumin Urine WBC (Auto) Urine Total Protein Digoxin Salicylates Acetaminophen 12/29/19 12/29/19 12/29/19 05:15 12:13 17:59 WBC Hgb Hct MCV MCH MCHC RDW Lymph % (Auto) [place] % (Auto) Eos % (Auto) Lymph # [place] # Seg Neutrophils % Monocytes % (Manual) Monocytes # (Manual) D-Dimer ABG pH ABG pO2 ABG HCO3 ABG O2 Saturation ABG Base Excess ABG Hemoglobin Oxyhemoglobin Sodium Potassium Chloride Carbon Dioxide BUN Creatinine Glucose POC Glucose 221 H 392 H 365 H Lactic Acid Calcium Magnesium AST ALT Lactate Dehydrogenase Total Creatine Kinase C-Reactive Protein Albumin Urine WBC (Auto) Urine Total Protein Digoxin Salicylates Acetaminophen 12/29/19 12/29/19 12/30/19 20:25 23:38 04:45 WBC Hgb Hct MCV MCH MCHC RDW Lymph % (Auto) [place] % (Auto) Eos % (Auto) Lymph # [place] # Seg Neutrophils % Monocytes % (Manual) Monocytes # (Manual) D-Dimer ABG pH 7.261 L 7.343 L ABG pO2 60.3 L 54.3 L ABG HCO3 32.1 H 30.9 H ABG O2 Saturation 87.6 L 88.3 L ABG Base Excess 3.7 H 4.0 H ABG Hemoglobin 9.7 L 11.6 L Oxyhemoglobin 85.2 L 86.0 L Sodium Potassium Chloride Carbon Dioxide BUN Creatinine Glucose POC Glucose 402 H Lactic Acid Calcium Magnesium AST ALT Lactate Dehydrogenase Total Creatine Kinase C-Reactive Protein Albumin Urine WBC (Auto) Urine Total Protein Digoxin Salicylates Acetaminophen 12/30/19 12/30/19 12/30/19 05:06 05:06 05:06 WBC 11.7 H Hgb 9.4 L Hct 32.4 L MCV 83 L MCH 24 L MCHC 29 L RDW 20.2 H Lymph % (Auto) [place] % (Auto) Eos % (Auto) Lymph # [place] # Seg Neutrophils % Monocytes % (Manual) Monocytes # (Manual) D-Dimer ABG pH ABG pO2 ABG HCO3 ABG O2 Saturation ABG Base Excess ABG Hemoglobin Oxyhemoglobin Sodium 159 H Potassium 3.2 L Chloride 120.1 H Carbon Dioxide 31 H BUN Creatinine 1.9 H Glucose 404 H POC Glucose Lactic Acid Calcium Magnesium 2.60 H AST ALT Lactate Dehydrogenase Total Creatine Kinase C-Reactive Protein Albumin Urine WBC (Auto) Urine Total Protein Digoxin Salicylates Acetaminophen 12/30/19 06:26 WBC Hgb Hct MCV MCH MCHC RDW Lymph % (Auto) [place] % (Auto) Eos % (Auto) Lymph # [place] # Seg Neutrophils % Monocytes % (Manual) Monocytes # (Manual) D-Dimer ABG pH ABG pO2 ABG HCO3 ABG O2 Saturation ABG Base Excess ABG Hemoglobin Oxyhemoglobin Sodium Potassium Chloride Carbon Dioxide BUN Creatinine Glucose POC Glucose 399 H Lactic Acid Calcium Magnesium AST ALT Lactate Dehydrogenase Total Creatine Kinase C-Reactive Protein Albumin Urine WBC (Auto) Urine Total Protein Digoxin Salicylates Acetaminophen Additional Studies: Cultures: Blood culture 12/18/2019 NGTD Urine culture 12/19/2019 NGTD Sputum culture 12/18/2019 NGTD Sputum culture 12/27/2019 MRSA Allied health notes reviewed: nursing
[2019-12-30] MEDS: POTASSIUM CHLORIDE 20 MEQ PACKET FEEDTUBE SCH (10:39)
[2019-12-30] MEDS: LINEZOLID 600 MG/300 ML BAG IV SCH ×2 (10:40→21:57)
--- NOTE | 2019-12-30 11:54 | XRay Report ---
CHEST 1 VIEW INDICATION / CLINICAL INFORMATION: MRSA PNA. COMPARISON: 12/27/2019 FINDINGS: SUPPORT DEVICES: Endotracheal tube, nasogastric tube, right-sided PICC line HEART / MEDIASTINUM: No significant abnormality. LUNGS / PLEURA: Bilateral airspace disease No pneumothorax. ADDITIONAL FINDINGS: No significant additional findings. IMPRESSION: Bilateral airspace disease is seen primarily in the lower lungs unchanged from 12/27/2019. Small bilat eral pleural effusions are also present. Signer Name: Andrew Maguire MD FACR Signed: 12/30/2019 11:50 AM Workstation Name: [email or web address]
[2019-12-30] MEDS: INSULIN REGULAR, HUMAN 100 UNITS/1 ML SUB-Q ONE ×2 (12:12→12:49)
[2019-12-30] MEDS ORDERED: INSULIN LISPRO 100 UNIT/ML SUB-Q ONE ×2 (12:49→17:35)
[2019-12-30] MEDS: VASOPRESSIN 20 UNIT in SODIUM CHLORIDE 0.9% 100 ML IV SCH ×2 (13:26→22:48)
[2019-12-30] MEDS ORDERED: SODIUM CHLORIDE 0.9% 1000 ML 1,000 ML IV ONE (14:42)
--- NOTE | 2019-12-30 14:44 | Progress Note ---
Assessment and Plan - Patient Problems (1) Acute kidney injury Current Visit: Yes Status: Acute Plan to address problem: Will monitor closely. Concerned for worsening pre-renal injury in settinf of sepsis and hemodynamic instability and now with increasing pressor requirements. Avoid nephrotoxins, maintain MAP >65 mmHg. (2) Acute respiratory failure Current Visit: Yes Status: Acute Qualifiers: Plan to address problem: Now re-intubated. Chest xray reviewed. Management on vent per Pulmonary/ICU. (3) Hypernatremia Current Visit: Yes Status: Acute Plan to address problem: Increase FWF to 300 cc q 4hrs. (4) Diastolic CHF Current Visit: Yes Status: Acute Qualifiers: Heart failure chronicity: acute on chronic Qualified Code(s): I50.33 - Acute on chronic diastolic (congestive) heart failure Plan to address problem: Chest Xray is concerning for volume overload. IVF has been stopped at this time. (5) Hypokalemia Current Visit: Yes Status: Acute Plan to address problem: replete per protocol. Place on 40meq daily via NG tube. (6) Pneumonia Current Visit: No Status: Acute Qualifiers: Pneumonia type: due to unspecified organism Laterality: left Lung loc ation: unspecified part of lung Qualified Code(s): J18.9 - Pneumonia, unspecified organism Plan to address problem: Management per primary/ICU team. Subjective Date of service: 12/30/19 Principal diagnosis: Ac. Hypoxemic Resp Failure; Septic Shock; Magdiel. PNA; PUI CO VID-19; CHF; JOE Interval history: On pressors at this time, with increasing dose of levophed and vasopressin. Labs noted, hypernatremia stable, slight fluctuations of serum creatinine in the setting of worsening hemodynamic stability and pressor requirements. Objective - Vital Signs Vital signs: Vital Signs - 12hr 12/30/19 12/30/19 12/30/19 03:00 03:30 04:00 Temperature 99 F Pulse Rate 85 88 Pulse Rate [ Bilateral] Pulse Rate [ From Monitor] Respiratory 20 23 Rate Respiratory Rate [Bilateral ] Respiratory Rate [pt denies ] Blood Pressure 98/53 O2 Sat by Pulse 92 78 L 92 Oximetry 12/30/19 12/30/19 12/30/19 04:30 04:42 05:00 Temperature Pulse Rate 85 86 89 Pulse Rate [ Bilateral] Pulse Rate [ From Monitor] Respiratory 20 20 Rate Respiratory Rate [Bilateral ] Respiratory Rate [pt denies ] Blood Pressure 92/48 92/48 101/49 O2 Sat by Pulse 93 91 93 Oximetry 12/30/19 12/30/19 12/30/19 05:30 06:00 06:30 Temperature Pulse Rate 82 80 82 Pulse Rate [ Bilateral] Pulse Rate [ From Monitor] Respiratory 21 20 20 Rate Respiratory Rate [Bilateral ] Respiratory Rate [pt denies ] Blood Pressure 101/52 110/54 104/54 O2 Sat by Pulse 91 90 Oximetry 12/30/19 12/30/19 12/30/19 07:00 07:30 07:44 Temperature 99.6 F Pulse Rate 82 81 Pulse Rate [ Bilateral] Pulse Rate [ From Monitor] Respiratory 20 20 Rate Respiratory Rate [Bilateral ] Respiratory Rate [pt denies ] Blood Pressure 102/52 100/50 O2 Sat by Pulse 90 92 Oximetry 12/30/19 12/30/19 12/30/19 08:00 08:30 09:00 Temperature 99.6 F Pulse Rate 85 83 78 Pulse Rate [ Bilateral] Pulse Rate [ 85 From Monitor] Respiratory 20 14 21 Rate Respiratory Rate [Bilateral ] Respiratory Rate [pt denies ] Blood Pressure 99/49 104/45 107/51 O2 Sat by Pulse 92 91 89 Oximetry 12/30/19 12/30/19 12/30/19 09:22 09:27 09:30 Temperature Pulse Rate 78 83 Pulse Rate [ 86 Bilateral] Pulse Rate [ From Monitor] Respiratory 16 Rate Respiratory 20 Rate [Bilateral ] Respiratory Rate [pt denies ] Blood Pressure 99/50 113/61 O2 Sat by Pulse 91 94 Oximetry 12/30/19 12/30/19 12/30/19 10:00 10:30 11:00 Temperature Pulse Rate 78 81 85 Pulse Rate [ Bilateral] Pulse Rate [ From Monitor] Respiratory 20 20 20 Rate Respiratory Rate [Bilateral ] Respiratory 20 Rate [pt denies ] Blood Pressure 96/47 99/48 100/50 O2 Sat by Pulse 89 90 90 Oximetry 12/30/19 12/30/19 12/30/19 11:30 12:00 12:30 Temperature 99.8 F H Pulse Rate 83 83 82 Pulse Rate [ Bilateral] Pulse Rate [ 88 From Monitor] Respiratory 19 20 20 Rate Respiratory Rate [Bilateral ] Respiratory Rate [pt denies ] Blood Pressure 94/50 100/51 102/57 O2 Sat by Pulse 89 89 93 Oximetry 12/30/19 12/30/19 12/30/19 13:00 13:30 13:55 Temperature Pulse Rate 79 80 72 Pulse Rate [ 71 Bilateral] Pulse Rate [ From Monitor] Respiratory 20 20 Rate Respiratory 20 Rate [Bilateral ] Respiratory Rate [pt denies ] Blood Pressure 100/50 112/53 97/46 O2 Sat by Pulse 91 93 94 Oximetry 12/30/19 14:00 Temperature Pulse Rate 70 Pulse Rate [ Bilateral] Pulse Rate [ From Monitor] Respiratory 18 Rate Respiratory Rate [Bilateral ] Respiratory Rate [pt denies ] Blood Pressure 119/63 O2 Sat by Pulse 95 Oximetry - General Appearance General appearance: sedated on ventilator, intubated EENT: ATNC Neck: no JVD Respiratory: Present: Decreased Breath Sounds Cardiology: regular Gastrointestinal: normal Integumentary: no rash Musculoskeletal: deferred - Lab 12/30/19 05:06 12/30/19 Unknown Most recent lab results ABG pH 7.343 pH Units (7.350-7.450) L 12/30/19 04:45 ABG pCO2 58.2 mm Hg 12/30/19 04:45 ABG pO2 54.3 mm Hg (80.0-90.0) L 12/30/19 04:45 ABG HCO3 30.9 mmol/L (20.0-26.0) H 12/30/19 04:45 ABG O2 Saturation 88.3 % (95.0-99.0) L 12/30/19 04:45 Calcium 10.1 mg/dL (8.4-10.2) 12/30/19 05:06 Phosphorus 3.70 mg/dL (2.5-4.5) 12/27/19 03:48 Magnesium 2.60 mg/dL (1.7-2.3) H 12/30/19 05:06 Urine Creatinine < 4.2 mg/dL (0.1-20.0) 12/25/19 16:45 Urine Sodium 10 mmol/L 12/25/19 16:45 Urine Total Protein < 4 mg/dL (5-11.8) L 12/25/19 16:45 - Allied health notes Allied health notes reviewed: nursing Medications & Allergies - Medications Allergies/Adverse Reactions: Allergies No Known Allergies Allergy (Unverified 12/19/19 01:31) Home Medications: Home Medications Medication Instructions Recorded Confirmed Last Taken Type Ipratropium/Albuterol Sulfate 1 ampul IH TIDRT #90 ampul.neb 06/02/19 12/28/19 Unknown Rx [DUONEB *Not for PRN Use*] Aspirin [Aspirin BABY CHEW TAB] 81 mg PO DAILY 06/03/19 12/28/19 3 Days Ago History ~05/31/19 Desmopressin [Ddavp] 0.2 mg PO BID 06/03/19 12/28/19 3 Days Ago History ~05/31/19 Digoxin [Lanoxin] 0.125 mg PO DAILY 06/03/19 12/28/19 3 Days Ago History ~05/31/19 Folic Acid 100 mg PO DAILY 06/03/19 12/28/19 3 Days Ago History ~05/31/19 Furosemide [Lasix TAB] 40 mg PO QDAY 06/03/19 12/28/19 3 Days Ago History ~05/31/19 Insulin Lispro [Humalog 100 4 units SQ AC 06/03/19 12/28/19 3 Days Ago History UNITS/ML Kwikpen] ~05/31/19 Levothyroxine [Synthroid] 88 mcg PO QAM 06/03/19 12/28/19 3 Days Ago History ~05/31/19 Metformin HCl [metFORMIN] 1,000 mg PO BID 06/03/19 12/28/19 3 Days Ago History ~05/31/19 Potassium Chloride [K-Dur] 20 meq PO QDAY 06/03/19 12/28/19 3 Days Ago History ~05/31/19 carvediloL [Coreg] 6.25 mg PO BID 06/03/19 12/28/19 3 Days Ago History ~05/31/19 Famotidine [Pepcid] 20 mg PO QDAY #30 tablet 06/06/19 12/28/19 Unknown Rx Insulin NPH/Regular [NovoLIN 70/30] 50 unit SUB-Q BIDDIAB #100 units 06/06/19 12/28/19 Unknown Rx Active Medications: Generic Name Dose Route Start Last Admin Trade Name Freq PRN Reason Stop Dose Admin Acetaminophen 650 mg 12/29/19 09:21 12/29/19 09:26 Tylenol PO 650 mg Q4H PRN Administration Non Cardiac Pain or Temp>100.5 Albuterol/Ipratropium 1 ampul 12/18/19 14:00 12/30/19 13:55 Duoneb *Not For Prn Use* IH 1 ampul TIDRT SHANEL Administration Lipase/Protease/Amylase 1 each 12/19/19 08:[address] 10,500 Unit FEEDTUBE PRN PRN For Clogged Feeding Tube Aspirin 81 mg 12/19/19 10:00 12/30/19 10:32 Baby Aspirin PO 81 mg DAILY SHANEL Administration Famotidine 20 mg 12/20/19 10:00 12/30/19 10:32 Pepcid PO 20 mg BID SHANEL Administration Fentanyl 50 mcg 12/27/19 16:57 Sublimaze IV Q10MIN PRN ANALGESIA Folic Acid 1 mg 12/19/19 10:00 12/30/19 10:32 Folvite PO 1 mg DAILY SHANEL Administration Furosemide 20 mg 12/28/19 14:00 12/30/19 10:31 Lasix IV 01/01/20 10:01 20 mg DAILY SHANEL Administration Heparin Sodium (Porcine) 5,000 unit 12/18/19 22:00 12/30/19 10:31 Heparin SUB-Q 5,000 unit Q12HR SHANEL Administration Hydrophilic Ointment 1 applic 12/18/19 12:35 Vaseline Lip Therapy TP Q2HR PRN Dry Lips Fentanyl Citrate 2,000 mcg in 100 mls @ 5.85 mls/hr 12/27/19 17:00 12/30/19 03:09 Fentanyl Drip Premix IV 1 mcg/kg/hr TITR SHANEL 5.85 mls/hr Administration Protocol 1 MCG/KG/HR Norepinephrine 4 mg in 250 mls @ 7.5 mls/hr 12/28/19 15:00 12/30/19 12:42 Levophed Drip 4 Mg/Ns 250 Ml IV 16 mcg/min TITR SHANEL 60 mls/hr Administration Protocol 2 MCG/MIN Linezolid 600 mg in 300 mls @ 300 mls/hr 12/29/19 15:00 12/30/19 10:40 Zyvox 600mg/300ml IV 300 mls/hr Q12HR SHANEL Administration Protocol Vasopressin 20 unit/ Sodium 101 mls @ 9.09 mls/hr 12/30/19 12:30 12/30/19 13:26 Chloride IV 0.03 units/min TITR SHANEL 9.09 mls/hr Administration Protocol 0.03 UNITS/MIN Insulin Glargine 25 units 12/30/19 22:00 Lantus SUB-Q QHS SHANEL Insulin Glargine 15 units 12/30/19 10:00 12/30/19 10:32 Lantus SUB-Q 15 units QAMDIAB SHANEL Administration Insulin Human Lispro 0 unit 12/20/19 00:00 12/30/19 12:19 Humalog SUB-Q 10 unit Q6HR [facility] Administration Protocol Levothyroxine Sodium 88 mcg 12/19/19 06:00 12/30/19 06:19 Synthroid PO 88 mcg QAM@0600 [facility] Administration Multi-Ingred Cream/Lotion/Oil/Oint 1 applic 12/18/19 12:35 Artificial Tears Ophth Oint OU Q4HR PRN Dry Eye(s) Potassium Chloride 40 meq 12/29/19 10:00 12/30/19 10:39 Potassium Chloride FEEDTUBE 40 meq QDAY SHANEL Administration Simple Syrup 15 ml 12/19/19 08:29 Simple Syrup FEEDTUBE PRN PRN Hypoglycemia Simple Syrup 30 ml 12/19/19 08:29 Simple Syrup FEEDTUBE PRN PRN Hypoglycemia Sodium Bicarbonate 325 mg 12/19/19 08:29 Sodium Bicarbonate FEEDTUBE PRN PRN For Clogged Feeding Tube Sodium Chloride 10 ml 12/18/19 22:00 12/30/19 10:32 Sodium Chloride Flush Syringe 10 Ml IV 10 ml BID SHANEL Administration Sodium Chloride 10 ml 12/18/19 13:31 Sodium Chloride Flush Syringe 10 Ml IV PRN PRN LINE FLUSH
--- NOTE | 2019-12-30 17:04 | Progress Note ---
Assessment and Plan Cultures: Blood culture 12/18/2019 no growth today Urine culture 12/19/2019 no growth today Sputum culture 12/18/2019 no growth today Sputum culture 12/27/2019 MRSA Blood culture 12/18/2019 no growth today A/P: 59-year-old male past medical history diastolic CHF, OHS, HTN, DM 2, hypothyroidism #Sepsis with septic shock: now with fever 102.8 and pressors, source ? possible MRSA pneumonia #MRSA pneumonia: sputum 12/26 +MRSA #Acute hypoxic respiratory failure: remains intubated Fio2 45,p8. CXR with increased interstitial consolidation and effusions #Diabetes: Tight glycemic control. #Multiple chronic comorbidities #JAGDEEP: creat is up #CHF Recs: -f/u blood culture -add cefepime and fluconazole - still on pressors -continue linezolid 600 mg IV q 12 hour -monitor creatinine will follow Nellie Felton MD [facility] ([facility]) Office [phone] Subjective Date of service: 12/30/19 Principal diagnosis: Ac. Hypoxemic Resp Failure; Septic Shock; Magdiel. PNA; PUI COVID-19; CHF; JOE Interval history: Patient remains intubated, no fever, remains on pressors. Objective - Exam Narrative Exam: Constitutional: intubated sedated Head, Ears, Nose: Normocephalic, atraumatic. Eyes: Conjunctivae/corneas clear. No icterus. No ptosis. Oral: +ETT Cardiovascular: S1, S2 normal. Respiratory: Good air entry, clear to auscultation bilaterally GI: Soft, non-tender; bowel sounds normal. No peritoneal signs. Musculoskeletal: No pedal edema, no cyanosis. Skin:groin irritation Hem/Lymphatic: No palpable cervical or supraclavicular nodes. No lymphangitis Neurological: sedated - Constitutional Vitals: Vital Signs Temp Pulse Resp BP Pulse Ox 99.7 F H 60 20 121/58 100 12/30/19 16:00 12/30/19 16:30 12/30/19 16:30 12/30/19 16:30 12/30/19 16:30 Temperature -Last 24 Hours Temperature 99.7 F Temperature 99.8 F Temperature 99.6 F Temperature 99.6 F Temperature 99 F Temperature 98.2 F Temperature 98.3 F - Labs CBC & Chem 7: 12/30/19 05:06 12/30/19 Unknown Labs: Abnormal lab results 12/29/19 12/29/19 12/29/19 Range/Units 17:59 20:25 23:38 WBC (4.5-11.0) K/mm3 Hgb (11.8-15.2) gm/dl Hct (35.5-45.6) % MCV (84-94) fl MCH (28-32) pg MCHC (32-34) % RDW (13.2-15.2) % ABG pH 7.261 L (7.350-7.450) pH Units ABG pO2 60.3 L (80.0-90.0) mm Hg ABG HCO3 32.1 H (20.0-26.0) mmol/L ABG O2 Saturation 87.6 L (95.0-99.0) % ABG Base Excess 3.7 H (-2.0-3.0) mmol/L ABG Hemoglobin 9.7 L (14.0-18.0) gm/dl Oxyhemoglobin 85.2 L (95.0-99.0) % Sodium (137-145) mmol/L Potassium (3.6-5.0) mmol/L Chloride (98-107) mmol/L Carbon Dioxide (22-30) mmol/L Creatinine (0.8-1.5) mg/dL Glucose (75-100) mg/dL POC Glucose 365 H 402 H (70-105) Magnesium (1.7-2.3) mg/dL 12/30/19 12/30/19 12/30/19 Range/Units 04:45 05:06 05:06 WBC 11.7 H (4.5-11.0) K/mm3 Hgb 9.4 L (11.8-15.2) gm/dl Hct 32.4 L (35.5-45.6) % MCV 83 L (84-94) fl MCH 24 L (28-32) pg MCHC 29 L (32-34) % RDW 20.2 H (13.2-15.2) % ABG pH 7.343 L (7.350-7.450) pH Units ABG pO2 54.3 L (80.0-90.0) mm Hg ABG HCO3 30.9 H (20.0-26.0) mmol/L ABG O2 Saturation 88.3 L (95.0-99.0) % ABG Base Excess 4.0 H (-2.0-3.0) mmol/L ABG Hemoglobin 11.6 L (14.0-18.0) gm/dl Oxyhemoglobin 86.0 L (95.0-99.0) % Sodium 159 H (137-145) mmol/L Potassium 3.2 L (3.6-5.0) mmol/L Chloride 120.1 H (98-107) mmol/L Carbon Dioxide 31 H (22-30) mmol/L Creatinine 1.9 H (0.8-1.5) mg/dL Glucose 404 H (75-100) mg/dL POC Glucose (70-105) Magnesium (1.7-2.3) mg/dL 12/30/19 12/30/19 12/30/19 Range/Units 05:06 06:26 12:29 WBC (4.5-11.0) K/mm3 Hgb (11.8-15.2) gm/dl Hct (35.5-45.6) % MCV (84-94) fl MCH (28-32) pg MCHC (32-34) % RDW (13.2-15.2) % ABG pH (7.350-7.450) pH Units ABG pO2 (80.0-90.0) mm Hg ABG HCO3 (20.0-26.0) mmol/L ABG O2 Saturation (95.0-99.0) % ABG Base Excess (-2.0-3.0) mmol/L ABG Hemoglobin (14.0-18.0) gm/dl Oxyhemoglobin (95.0-99.0) % Sodium (137-145) mmol/L Potassium (3.6-5.0) mmol/L Chloride (98-107) mmol/L Carbon Dioxide (22-30) mmol/L Creatinine (0.8-1.5) mg/dL Glucose (75-100) mg/dL POC Glucose 399 H 469 H (70-105) Magnesium 2.60 H (1.7-2.3) mg/dL 12/30/19 12/30/19 12/30/19 Range/Units 13:44 13:51 Unknown WBC (4.5-11.0) K/mm3 Hgb (11.8-15.2) gm/dl Hct (35.5-45.6) % MCV (84-94) fl MCH (28-32) pg MCHC (32-34) % RDW (13.2-15.2) % ABG pH (7.350-7.450) pH Units ABG pO2 (80.0-90.0) mm Hg ABG HCO3 (20.0-26.0) mmol/L ABG O2 Saturation (95.0-99.0) % ABG Base Excess (-2.0-3.0) mmol/L ABG Hemoglobin (14.0-18.0) gm/dl Oxyhemoglobin (95.0-99.0) % Sodium (137-145) mmol/L Potassium (3.6-5.0) mmol/L Chloride (98-107) mmol/L Carbon Dioxide (22-30) mmol/L Creatinine (0.8-1.5) mg/dL Glucose 498 H (75-100) mg/dL POC Glucose > 500 H > 500 H (70-105) Magnesium (1.7-2.3) mg/dL
--- NOTE | 2019-12-30 17:20 | Progress Note ---
Assessment and Plan Assessment and plan: 59-year-old male past medical history diastolic CHF, OHS, HTN, DM 2, hypothyroidism admitted with confusion after being found by a neighbor. On arrival patient was found to be lethargic, and in respiratory distress and hypoxic. Patient was intubated in the ER because of hypoxic respiratory failure. Also noted to be hypotensive, placed on pressor admitted to ICU. Patient is negative for COVID-19, being treated for bilateral pneumonia. JAGDEEP improved with IV fluid, ID and critical care following. Chest x-ray: Left lower lobe airspace disease CT chest: 1. Patchy bilateral nodular and consolidative airspace opacities which are nonspecific but likely related to the reported history of Covid. 2. Multiple enlarged partially visualized left supraclavicular and lower cervical chain lymph nodes. While these are nonspecific and may be reactive, a neoplastic process is possible, recommend short interval follow-up after patient recovers from the acute episode. / Acute hypoxic respiratory failure Likely from bilateral pneumonia and diastolic heart failure Patient intubated, placed on ventilatory support. critical care team consulted in ED. Patient is extubated, continue nebulizer breathing treatment and as needed biPAP We will also do a swallow eval / Sepsis with shock cont IV antibiotic therapy, IV fluid resuscitation therapy, monitor urine output every shift, maintain mean arterial blood pressure greater than or equal to 65, s/p IV pressor support. / Suspected 2019-nCoV infection -ruled out with 2 negative test / Diastolic CHF Preserved EF based on prior echocardiogram Monitor weight strict I's/O, daily weight, monitor urine output every shift, submental oxygen, blood pressure control. /JAGDEEP, due to vasomotor nephropathy, present on admission -Creatinine improving, continue IV fluid -Likely due to severe sepsis and hypotension /hypernatremia, -due to dehydration and sepsis -change fluid to D5W - monitor BMP /Hypokalemia, replete / Diabetes type II Initiate tube feeding diet Sliding scale insulin, Accu-Chek, hypoglycemia protocol. / Hypothyroidism Synthroid therapy, supportive care. / Bilateral pneumonia Pneumonia protocol: IV antibiotic therapy with rocephin for total 7 days, pulse oximetry, /Cervical lymphadenopathy -Reactive versus infectious process versus malignancy -Need repeat scanning and further staging when medically more stable -Pulmonology and ID following / HTN (hypertension) -hold BP meds as patient is hypotensive Monitor blood pressure every shift, continue medical management. /History of obstructive sleep apnea -Patient currently on mechanical ventilation /Acute metabolic encephalopathy Secondary to hyponatremia. /Urinary retention, suspected in the ER -Patient having good urine output now, will hold any CT scan -Continue IV fluid / DVT prophylaxis SCD to bilateral lower extremities while in bed, prophylactic heparin 12/19/19: Negative for COVID-19, continue pressor and wean off as tolerated, con tinue IV antibiotic and follow cultures. 12/19: Weaned off from pressor, sodium 156>157>153 today, creatinine 1.4>1.2>1.0. Continue IV fluid. Wean off from vent as tolerated. Follow ID recommendation 12/20: Extubated today, continue to monitor in the ICU overnight if clinically stable with transfer out to [facility]/telemetry tomorrow a.m.. Sodium 149 today, continue IV fluid and monitor BMP. Swallow eval, PT OT eval. 2nd text for covid is negative 12/21: transfer to [facility], start on gentle hydration. mechanical soft diet 12/22: placed back on bipap, Na 163 - start on D5W, monitor bmp 12/23: spoke to sister, updated [id number], also discussed Pulmonary, will likely need LTAC. Obtain Nephrology due to persistent Hypernatremia. Will start on free water and continue to monitor. Remains of restriants for safety due to intermittent confusion. 12/24: Still with intermittent encephalopathy. Requiring restraints. Hypernatremia still persist continue hypotonic solution. Nephrology consulted. Free water started this morning will increase dose. Replace potassium as hypokalemia still persist 12/26/19: Clinically improving, BIPAP now PRN AND HS, Na improving, continue renal follow up. I have called [facility] in case they would like to transfer the patient tested previously requested. 12/26: Hypernatermia still persist, had pulled out NGT yesterday, Continue free water, Continue Bipap, [place] states he is not yet stable for transfer. Although from our critical care team this patient has been cleared for to be able to transfer. 12/27: Patient reintubated due to hypoxia. Continue current management as outlined by brine supervisor. Sodium is improving. Continue current management monitor ABG and intermittent chest x-ray. [facility] updated. Patient sister also updated. 12/28: Sepsis persist. Antibiotics adjusted.-start linezolid 600 mg IV q 12 hour. Will adjust insulin for better management of blood glucose. 12/29: Shock still persist Levophed adjusted upward. [place] advised patient not safe for travel at this time. Continue ventilatory support continue full support antibiotics adjusted by ID. Follow cultures The high probability of a clinically significant, sudden or life threatening deterioration of the [renal, pulmonary] system(s) required my full and direct attention, intervention and personal management. The aggregate critical care time was [35] minutes. This time is in addition to time spent performing reported procedures but includes the following: [x] Data Review and interpretation [x] Patient assessment and monitoring of vital signs [x] Documentation [x] Medication orders and management History Interval history: Patient seen and examined, still on full ventilatory support, further hypotension requiring increasing Levophed Hospitalist Physical - Physical exam Narrative exam: GENERAL: well-developed obese white male lying on bed on restraints due to confusion and pulling. ETT HEENT: Normocephalic. Atraumatic. No conjunctival congestion or icterus. Patient has moist mucous membranes. ETT NECK: Supple. Trachea midline. CHEST/LUNGS: Coarse breath sound auscultated bilaterally, HEART/CARDIOVASCULAR: Regular in rate and rhythm. S1 and S2 positive. ABDOMEN: Abdomen is soft, nontender. Patient has normal bowel sounds. SKIN: There is no rash. Warm and dry. NEURO: follows some command, AMS, no focal deficits MUSCULOSKELETAL: No joint effusion or tenderness. EXTRIMITY: No edema, no cyanosis or clubbing. PSYCH: Sedated - Constitutional Vitals: Temp Pulse Resp BP Pulse Ox 99.7 F H 70 20 113/61 100 12/30/19 16:00 12/30/19 17:00 12/30/19 17:00 12/30/19 17:00 12/30/19 17:00 General appearance: Present: severe distress HEART Score - HEART Score Troponin: Troponin T 0.011 ng/mL (0.00-0.029) 12/18/19 14:45 Results - Labs CBC & Chem 7: 12/30/19 05:06 12/30/19 Unknown Labs: Laboratory Last Values WBC 11.7 K/mm3 (4.5-11.0) H 12/30/19 05:06 RBC 3.91 M/mm3 (3.65-5.03) 12/30/19 05:06 Hgb 9.4 gm/dl (11.8-15.2) L 12/30/19 05:06 Hct 32.4 % (35.5-45.6) L 12/30/19 05:06 MCV 83 fl (84-94) L 12/30/19 05:06 MCH 24 pg (28-32) L 12/30/19 05:06 MCHC 29 % (32-34) L 12/30/19 05:06 RDW 20.2 % (13.2-15.2) H 12/30/19 05:06 Plt Count 191 K/mm3 (140-440) 12/30/19 05:06 Lymph % (Auto) 9.0 % (13.4-35.0) L 12/22/19 05:15 [place] % (Auto) 12.3 % (0.0-7.3) H 12/22/19 05:15 Eos % (Auto) 5.0 % (0.0-4.3) H 12/22/19 05:15 Baso % (Auto) 0.5 % (0.0-1.8) 12/22/19 05:15 Lymph # 0.5 K/mm3 (1.2-5.4) L 12/22/19 05:15 [place] # 0.7 K/mm3 (0.0-0.8) 12/22/19 05:15 Eos # 0.3 K/mm3 (0.0-0.4) 12/22/19 05:15 Baso # 0.0 K/mm3 (0.0-0.1) 12/22/19 05:15 Add Manual Diff Complete 12/24/19 04:53 Total Counted 100 12/24/19 04:53 Seg Neutrophils % 73.2 % (40.0-70.0) H 12/22/19 05:15 Seg Neuts % (Manual) 60.0 % (40.0-70.0) 12/24/19 04:53 Band Neutrophils % 0 % 12/24/19 04:53 Lymphocytes % (Manual) 20.0 % (13.4-35.0) 12/24/19 04:53 Reactive Lymphs % (Man) 0 % 12/24/19 04:53 Monocytes % (Manual) 15.0 % (0.0-7.3) H 12/24/19 04:53 Eosinophils % (Manual) 4.0 % (0.0-4.3) 12/24/19 04:53 Basophils % (Manual) 0 % (0.0-1.8) 12/24/19 04:53 Metamyelocytes % 1.0 % 12/24/19 04:53 Myelocytes % 0 % 12/24/19 04:53 Promyelocytes % 0 % 12/24/19 04:53 Blast Cells % 0 % 12/24/19 04:53 Nucleated RBC % Not Reportable 12/24/19 04:53 Seg Neutrophils # 4.4 K/mm3 (1.8-7.7) 12/22/19 05:15 Seg Neutrophils # Man 3.5 K/mm3 (1.8-7.7) 12/24/19 04:53 Band Neutrophils # 0.0 K/mm3 12/24/19 04:53 Lymphocytes # (Manual) 1.2 K/mm3 (1.2-5.4) 12/24/19 04:53 Abs React Lymphs (Man) 0.0 K/mm3 12/24/19 04:53 Monocytes # (Manual) 0.9 K/mm3 (0.0-0.8) H 12/24/19 04:53 Eosinophils # (Manual) 0.2 K/mm3 (0.0-0.4) 12/24/19 04:53 Basophils # (Manual) 0.0 K/mm3 (0.0-0.1) 12/24/19 04:53 Metamyelocytes # 0.1 K/mm3 12/24/19 04:53 Myelocytes # 0.0 K/mm3 12/24/19 04:53 Promyelocytes # 0.0 K/mm3 12/24/19 04:53 Blast Cells # 0.0 K/mm3 12/24/19 04:53 WBC Morphology Not Reportable 12/24/19 04:53 Hypersegmented Neuts Not Reportable 12/24/19 04:53 Hyposegmented Neuts Not Reportable 12/24/19 04:53 Hypogranular Neuts Not Reportable 12/24/19 04:53 Smudge Cells Not Reportable 12/24/19 04:53 Toxic Granulation Not Reportable 12/24/19 04:53 Toxic Vacuolation Not Reportable 12/24/19 04:53 Dohle Bodies Not Reportable 12/24/19 04:53 Pelger-Huet Anomaly Not Reportable 12/24/19 04:53 Mervin Rods Not Reportable 12/24/19 04:53 Platelet Estimate Consistent w auto 12/24/19 04:53 Clumped Platelets Not Reportable 12/24/19 04:53 Plt Clumps, EDTA Not Reportable 12/24/19 04:53 Large Platelets Not Reportable 12/24/19 04:53 Giant Platelets Not Reportable 12/24/19 04:53 Platelet Satelliting Not Reportable 12/24/19 04:53 Plt Morphology Comment Not Reportable 12/24/19 04:53 RBC Morphology Not Reportable 12/24/19 04:53 Dimorphic RBCs Not Reportable 12/24/19 04:53 Polychromasia Rare 12/24/19 04:53 Hypochromasia 1+ 12/24/19 04:53 Poikilocytosis Not Reportable 12/24/19 04:53 Anisocytosis 1+ 12/24/19 04:53 Microcytosis Few 12/24/19 04:53 Macrocytosis Not Reportable 12/24/19 04:53 Spherocytes Not Reportable 12/24/19 04:53 Pappenheimer Bodies Not Reportable 12/24/19 04:53 Sickle Cells Not Reportable 12/24/19 04:53 Target Cells Not Reportable 12/24/19 04:53 Tear Drop Cells Not Reportable 12/24/19 04:53 Ovalocytes Few 12/24/19 04:53 Helmet Cells Not Reportable 12/24/19 04:53 Brink-Kingf[place] Bodies Not Reportable 12/24/19 04:53 [place] Rings Not Reportable 12/24/19 04:53 Ileana Cells Not Reportable 12/24/19 04:53 Bite Cells Not Reportable 12/24/19 04:53 Crenated Cell Not Reportable 12/24/19 04:53 Elliptocytes Not Reportable 12/24/19 04:53 Acanthocytes (Spur) Not Reportable 12/24/19 04:53 Rouleaux Not Reportable 12/24/19 04:53 Hemoglobin C Crystals Not Reportable 12/24/19 04:53 Schistocytes Not Reportable 12/24/19 04:53 Malaria parasites Not Reportable 12/24/19 04:53 Gianni Bodies Not Reportable 12/24/19 04:53 Hem Pathologist Commnt No 12/24/19 04:53 PT 14.0 Sec. (12.2-14.9) 12/18/19 14:45 INR 1.10 (0.87-1.13) 12/18/19 14:45 APTT 29.4 Sec. (24.2-36.6) 12/18/19 14:45 D-Dimer 534.45 ng/mlDDU (0-234) H 12/18/19 14:45 ABG pH 7.343 pH Units (7.350-7.450) L 12/30/19 04:45 ABG pCO2 58.2 mm Hg 12/30/19 04:45 ABG pO2 54.3 mm Hg (80.0-90.0) L 12/30/19 04:45 ABG HCO3 30.9 mmol/L (20.0-26.0) H 12/30/19 04:45 ABG O2 Saturation 88.3 % (95.0-99.0) L 12/30/19 04:45 ABG O2 Content 14.0 (0.0-44) 12/30/19 04:45 ABG Base Excess 4.0 mmol/L (-2.0-3.0) H 12/30/19 04:45 ABG Hemoglobin 11.6 gm/dl (14.0-18.0) L 12/30/19 04:45 ABG Carboxyhemoglobin 1.9 % (0.0-5.0) 12/30/19 04:45 ABG Methemoglobin 0.7 % (0.0-1.5) 12/30/19 04:45 Oxyhemoglobin 86.0 % (95.0-99.0) L 12/30/19 04:45 FiO2 50 % 12/30/19 04:45 Sodium 159 mmol/L (137-145) H 12/30/19 05:06 Potassium 3.2 mmol/L (3.6-5.0) L 12/30/19 05:06 Chloride 120.1 mmol/L (98-107) H 12/30/19 05:06 Carbon Dioxide 31 mmol/L (22-30) H 12/30/19 05:06 Anion Gap 11 mmol/L 12/30/19 05:06 BUN 18 mg/dL (9-20) 12/30/19 05:06 Creatinine 1.9 mg/dL (0.8-1.5) H 12/30/19 05:06 Estimated GFR 44 ml/min 12/30/19 05:06 BUN/Creatinine Ratio 9 % 12/30/19 05:06 Glucose 498 mg/dL (75-100) H 12/30/19 Unknown POC Glucose > 500 (70-105) H 12/30/19 13:51 Lactic Acid 1.70 mmol/L (0.7-2.0) 12/30/19 05:06 Calcium 10.1 mg/dL (8.4-10.2) 12/30/19 05:06 Phosphorus 3.70 mg/dL (2.5-4.5) 12/27/19 03:48 Magnesium 2.60 mg/dL (1.7-2.3) H 12/30/19 05:06 Ferritin 83.4 ng/mL (13.0-400.0) 12/18/19 14:45 Total Bilirubin 0.30 mg/dL (0.1-1.2) 12/19/19 04:13 AST 85 units/L (5-40) H 12/19/19 04:13 ALT 61 units/L (7-56) H 12/19/19 04:13 Alkaline Phosphatase 80 units/L (35-129) 12/19/19 04:13 Ammonia 39.0 umol/L (25-60) 12/18/19 14:45 Lactate Dehydrogenase 235 units/L (91-180) H 12/18/19 14:45 Lactate Dehydrogenase 236 units/L (91-180) H 12/18/19 14:45 Total Creatine Kinase 40 units/L (55-170) L 12/18/19 14:45 Troponin T 0.011 ng/mL (0.00-0.029) 12/18/19 14:45 C-Reactive Protein 8.40 mg/dL (0.00-1.30) H 12/18/19 14:45 C-Reactive Protein 8.50 mg/dL (0.00-1.30) H 12/18/19 14:45 Total Protein 6.8 g/dL (6.3-8.2) 12/19/19 04:13 Albumin 3.0 g/dL (3.9-5) L 12/19/19 04:13 Albumin/Globulin Ratio 0.8 % 12/19/19 04:13 Procalcitonin 0.22 ng/mL (<0.15) 12/18/19 14:45 TSH 2.300 mlU/mL (0.270-4.200) 12/18/19 14:45 Urine Color Yellow (Yellow) 12/19/19 16:50 Urine Turbidity Clear (Clear) 12/19/19 16:50 Urine pH 5.0 (5.0-7.0) 12/19/19 16:50 Ur Specific [place] 1.010 (1.003-1.030) 12/19/19 16:50 Urine Protein <15 mg/dl mg/dL (Negative) 12/19/19 16:50 Urine Glucose (UA) 150 mg/dL (Negative) 12/19/19 16:50 Urine Ketones Neg mg/dL (Negative) 12/19/19 16:50 Urine Blood Neg (Negative) 12/19/19 16:50 Urine Nitrite Neg (Negative) 12/19/19 16:50 Urine Bilirubin Neg (Negative) 12/19/19 16:50 Urine Urobilinogen < 2.0 mg/dL (<2.0) 12/19/19 16:50 Ur Leukocyte Esterase Tr (Negative) 12/19/19 16:50 Urine WBC (Auto) 7.0 /HPF (0.0-6.0) H 12/19/19 16:50 Urine RBC (Auto) 4.0 /HPF (0.0-6.0) 12/19/19 16:50 U Epithel Cells (Auto) 1.0 /HPF (0-13.0) 12/19/19 16:50 Urine Bacteria (Auto) 1+ /HPF (Negative) 12/19/19 16:50 Urine Mucus Few /HPF 12/19/19 16:50 Urine Osmolality 140 Mosm/kg 12/25/19 16:45 Urine Creatinine < 4.2 mg/dL (0.1-20.0) 12/25/19 16:45 Urine Sodium 10 mmol/L 12/25/19 16:45 Urine Total Protein < 4 mg/dL (5-11.8) L 12/25/19 16:45 Digoxin 0.3 ng/mL (0.9-2.0) L 12/18/19 14:45 Salicylates < 0.3 mg/dL (2.8-20.0) L 12/18/19 14:45 Acetaminophen < 5.0 ug/mL (10.0-30.0) L 12/18/19 14:45 Plasma/Serum Alcohol < 0.01 % (0-0.07) 12/18/19 14:45 Coronavirus (PCR) Negative (Negative) 12/21/19 14:45 Blood Type A POSITIVE 12/18/19 14:45 Antibody Screen Negative 12/18/19 14:45 Microbiology: Microbiology 12/29/19 13:03 Peripheral/Venous Blood Culture - Preliminary NO GROWTH AFTER 24 HOURS 12/29/19 13:42 Peripheral/Venous Blood Culture - Preliminary NO GROWTH AFTER 24 HOURS 12/29/19 15:41 Peripheral/Venous Blood Culture - Preliminary Culture in Progress 12/29/19 15:44 Peripheral/Venous Blood Culture - Preliminary Culture in Progress - Diagnostic Impressions Diagnostic Impressions: Echocardiogram 12/28/19 14:07 Transthoracic Echocardiogram Indication: SOB BP: 95/51 HR: 99 Conclusions *The left ventricular chamber size is mildly dilated. *There is no left ventricular hypertrophy. *Global left ventricular systolic function is mildly decreased. *The estimated ejection fraction is 45-50%. *Abnormal left ventricular diastolic filling is observed, consistent with impaired relaxation. *The right ventricular global systolic function is mildly reduced. *The right ventricular systolic pressure is calculated at 53 mmHg. Findings Left Ventricle: The left ventricular chamber size is mildly dilated. There is no left ventricular hypertrophy. Global left ventricular systolic function is mildly decreased. The estimated ejection fraction is 45-50%. Abnormal left ventricular diastolic filling is observed, consistent with impaired relaxation. Left Atrium: The left atrial chamber size is normal. Right Ventricle: The right ventricular cavity size is normal. The right ventricular global systolic function is mildly reduced. Right Atrium: The right atrial cavity size is normal. Aortic Valve: The aortic valve leaflets are mildly thickened. There is no evidence of aortic regurgitation. Mitral Valve: The mitral valve leaflets are mildly thickened. There is no evidence of mitral regurgitation. Tricuspid Valve: The tricuspid valve leaflets are normal. There is mild tricuspid regurgitation. The right ventricular systolic pressure is calculated at 53 mmHg. Pulmonic Valve: The pulmonic valve appears normal. There is trace pulmonic regurgitation. Pericardium: There is no pericardial effusion. Aorta: The aorta appears normal. Venous: The inferior vena cava is dilated. Measurements Chambers 2D Name Value Normal Range IVSd (2D) 1.08 cm (0.6 - 1.1) LVPWd (2D) 1 cm (0.6 - 1.1) LVIDd (2D) 4.67 cm (3.7 - 5.6) LVIDs (2D) 3.89 cm (2 - 3.8) LV FS (2D) 16.76 % - EF Teichholz (2D) 35.14 % - Ao root diameter (2D) 2.86 cm (2 - 3.7) Volumes/Mass Name Value Normal Range LA ESV SP 4CH (A/L) 31.8 ml - LA ESV SP 2CH (A/L) 27.37 ml - LA ESV BP (A/L) 33.43 ml - LA ESV BP (A/L) index 14.11 ml/m2 - LA ESV SP 4CH (MOD) 26.83 ml - LA ESV SP 2CH (MOD) 29.59 ml - LA ESV BP (MOD) 30.47 ml - LA ESV BP (MOD) index 12.86 ml/m2 - Diastolic/Systolic Function Name Value Normal Range MV E-wave Vmax 0.39 m/sec - MV deceleration time 115.69 msec - MV A-wave Vmax 0.63 m/sec - MV E:A ratio 0.62 ratio - Aortic Valve Name Value Normal Range AV Vmax 1.14 m/sec - AV VTI 20.1 cm - AV peak gradient 5.17 mmHg - AV mean gradient 3.89 mmHg - LVOT diameter 2.02 cm - LVOT Vmax 0.99 m/sec - LVOT VTI 16.45 cm - LVOT peak gradient 3.95 mmHg - LVOT mean gradient 2.45 mmHg - SV LVOT 52.45 ml - RALPH (continuity Vmax) 2.78 cm2 - RALPH (continuity VTI) 2.61 cm2 - Tricuspid Valve Name Value Normal Range TR Vmax 3.36 m/sec - TR peak gradient 45 mmHg - RAP 8 mmHg - RVSP 53 mmHg - IVC diameter 2.33 cm (1.2 - 2.3) Pulmonic Valve/Qp:Qs Name Value Normal Range PV Vmax 0.89 m/sec - PV peak gradient 3.16 mmHg - [place] end-diastolic Vmax 1.42 m/sec - PV acceleration time 79.92 msec - Sykes/IV: Voiding Method Condom Catheter IV Catheter Type [Right Upper PICC Line arm] IV Catheter Type [Right Leg] Intra-osseous IV Catheter Type [Right Wrist] Peripheral IV IV Catheter Type [Right Hand] INT / Saline Lock IV Catheter Type [Left Hand] INT / Saline Lock IV Catheter Type [Left Forearm INT / Saline Lock ] IV Catheter Type [Left Triple Lumen Cath Internal Jugular] Active Medications - Current Medications Current Medications: Generic Name Dose Route Start Last Admin Trade Name Freq PRN Reason Stop Dose Admin Acetaminophen 650 mg 12/29/19 09:21 12/29/19 09:26 Tylenol PO 650 mg Q4H PRN Administration Non Cardiac Pain or Temp>100.5 Albuterol/Ipratropium 1 ampul 12/18/19 14:00 12/30/19 13:55 Duoneb *Not For Prn Use* IH 1 ampul TIDRT SHANEL Administration Lipase/Protease/Amylase 1 each 12/19/19 08:29 Pancreaztatyana Cabrera 10,500 Unit FEEDTUBE PRN PRN For Clogged Feeding Tube Aspirin 81 mg 12/19/19 10:00 12/30/19 10:32 Baby Aspirin PO 81 mg DAILY SHANEL Administration Famotidine 20 mg 12/20/19 10:00 12/30/19 10:32 Pepcid PO 20 mg BID SHANEL Administration Fentanyl 50 mcg 12/27/19 16:57 Sublimaze IV Q10MIN PRN ANALGESIA Folic Acid 1 mg 12/19/19 10:00 12/30/19 10:32 Folvite PO 1 mg DAILY SHANEL Administration Furosemide 20 mg 12/28/19 14:00 12/30/19 10:31 Lasix IV 01/01/20 10:01 20 mg DAILY SHANEL Administration Heparin Sodium (Porcine) 5,000 unit 12/18/19 22:00 12/30/19 10:31 Heparin SUB-Q 5,000 unit Q12HR SHANEL Administration Hydrophilic Ointment 1 applic 12/18/19 12:35 Vaseline Lip Therapy TP Q2HR PRN Dry Lips Fentanyl Citrate 2,000 mcg in 100 mls @ 5.85 mls/hr 12/27/19 17:00 12/30/19 03:09 Fentanyl Drip Premix IV 1 mcg/kg/hr TITR SHANEL 5.85 mls/hr Administration Protocol 1 MCG/KG/HR Norepinephrine 4 mg in 250 mls @ 7.5 mls/hr 12/28/19 15:00 12/30/19 16:10 Levophed Drip 4 Mg/Ns 250 Ml IV 12 mcg/min TITR SHANEL 45 mls/hr Titration Protocol 2 MCG/MIN Linezolid 600 mg in 300 mls @ 300 mls/hr 12/29/19 15:00 12/30/19 10:40 Zyvox 600mg/300ml IV 300 mls/hr Q12HR [facility] Administration Protocol Vasopressin 20 unit/ Sodium 101 mls @ 9.09 mls/hr 12/30/19 12:30 12/30/19 13:26 Chloride IV 0.03 units/min TITR SHANEL 9.09 mls/hr Administration Protocol 0.03 UNITS/MIN Cefepime HCl 2 gm in 100 mls @ 200 mls/hr 12/30/19 18:00 Cefepime/Ns 2 Gm/100 Ml IV Q12H [facility] Protocol Fluconazole 200 mg in 100 mls @ 100 mls/hr 12/30/19 18:00 Diflucan IV Q24H [facility] Protocol Insulin Glargine 25 units 12/30/19 22:00 Lantus SUB-Q QHS SHANEL Insulin Glargine 15 units 12/30/19 10:00 12/30/19 10:32 Lantus SUB-Q 15 units QAMDIAB [facility] Administration Insulin Human Lispro 0 unit 12/20/19 00:00 12/30/19 16:46 Humalog SUB-Q 10 unit Q6HR [facility] Administration Protocol Insulin Human Lispro 5 unit 12/30/19 17:35 12/30/19 16:47 Humalog SUB-Q 12/30/19 17:36 5 unit ONCE ONE Administration Levothyroxine Sodium 88 mcg 12/19/19 06:00 12/30/19 06:19 Synthroid PO 88 mcg QAM@0600 [facility] Administration Multi-Ingred Cream/Lotion/Oil/Oint 1 applic 12/18/19 12:35 Artificial Tears Ophth Oint OU Q4HR PRN Dry Eye(s) Potassium Chloride 40 meq 12/29/19 10:00 12/30/19 10:39 Potassium Chloride FEEDTUBE 40 meq QDAY SHANEL Administration Simple Syrup 15 ml 12/19/19 08:29 Simple Syrup FEEDTUBE PRN PRN Hypoglycemia Simple Syrup 30 ml 12/19/19 08:29 Simple Syrup FEEDTUBE PRN PRN Hypoglycemia Sodium Bicarbonate 325 mg 12/19/19 08:29 Sodium Bicarbonate FEEDTUBE PRN PRN For Clogged Feeding Tube Sodium Chloride 10 ml 12/18/19 22:00 12/30/19 10:32 Sodium Chloride Flush Syringe 10 Ml IV 10 ml BID SHANEL Administration Sodium Chloride 10 ml 12/18/19 13:31 Sodium Chloride Flush Syringe 10 Ml IV PRN PRN LINE FLUSH Nutrition/Malnutrition Assess - Dietary Evaluation Nutrition/Malnutrition Findings: Nutrition Notes Start: 12/19/19 08:16 Freq: Status: Active Protocol: Document 12/30/19 12:15 LM (Rec: 12/30/19 12:19 LM [email or web address]) Nutrition Notes Initial or Follow up Reassessment Current Diagnosis Diabetes,Sepsis,Hypertension, Heart Failure,Respiratory Failure Other Pertinent Diagnosis Suspected COVID-19, pneu Current Diet Vital AF 1.2 at 65ml/hr Labs/Tests Na 159 K 3.2 Cr 1.9 POC glu 399 Pertinent Medications Levophed Humalog Height 6 ft 2 in Weight 117 kg [place] Body Weight (kg) 86.36 BMI 33.1 Subjective/Other Information Pt tolerating TF. Percent of energy/protein needs met: 94%/68% Burn Absent Trauma Absent Current % PO Negligible Minimum of two criteria No physical signs of malnutrition #1 Nutrition Diagnosis Inadequate oral intake Diagnosis Progress(for reassessment Continues documentation) Is patient on ventilator? Yes Is Patient Ambulatory and/or Out of Bed No REE-([facility]-confined to bed) 2469.960 Kcal/Kg value to use for calculation 17 Approximate Energy Requirements Using 1989 kcal/Kg Calculation Used for Recommendations Kcal/kg Additional Notes Protein: 172g (>/=2g/kg using IBW 86kg) Fluid 1ml/kcal Nutrition Intervention Change Diet Order: TF Nutrition Support: Vital AF 1.2 at 65ml/hr Flush 300ml q4h for hypernatremia Flush 100ml q4h once resolved Kcal 1,872 Protein (gm) 117 Fluid (mL) 1,265 Goal #1 TF tolerance Goal #2 Meet at least 75% of energy and protein needs Anticipated Discharge Needs: unable to determine at this time Follow-Up By: 01/04/20 Additional Comments F/U for TF tolerance
[2019-12-30] MEDS: FLUCONAZOLE 200 MG 200 MG/100 ML BAG IV SCH (17:36)
[2019-12-30] MEDS: CEFEPIME/NS 2 GM/100 ML 2 GM/100 ML BAG IV SCH (17:36)
[2019-12-31] MEDS: INSULIN LISPRO 100 UNIT/ML SUB-Q SCH ×5 (01:40→22:18)
[2019-12-31] MEDS: NORepinephrine/NS 4 MG-250 ML 4 MG/250 ML BAG IV SCH ×2 (01:41→07:54)
[2019-12-31 04:56] LABS: ABG Base Excess 2.9 mmol/L (-2.0-3.0); ABG HCO3 31.1 mmol/L (20.0-26.0); ABG Methemoglobin 0.7 % (0.0-1.5); ABG Oxygen Saturation 88.7 % (95.0-99.0); ABG PCO2 72.4 mm Hg; ABG PH 7.251 pH Units (7.350-7.450); ABG PO2 62.4 mm Hg (80.0-90.0)
[2019-12-31] MEDS ORDERED: SODIUM CHLORIDE 0.9% 500 ML 500 ML IV ONE (06:20)
[2019-12-31] MEDS: LEVOTHYROXINE 88 MCG TAB PO SCH (06:41)
[2019-12-31] MEDS: CEFEPIME/NS 2 GM/100 ML 2 GM/100 ML BAG IV SCH ×2 (07:02→17:46)
[2019-12-31] MEDS: VASOPRESSIN 20 UNIT in SODIUM CHLORIDE 0.9% 100 ML IV SCH (07:55)
[2019-12-31] MEDS ORDERED: INSULIN REGULAR, HUMAN 100 UNITS/1 ML SUB-Q ONE (08:00)
[2019-12-31] MEDS: IPRATROPIUM/ALBUTEROL SULFATE 3 ML AMPUL.NEB IH SCH ×3 (08:21→20:55)
[2019-12-31] MEDS: INSULIN GLARGINE 100 UNITS/ML SUB-Q SCH (09:36)
[2019-12-31] MEDS: HEPARIN 5,000 UNIT/1 ML VIAL SUB-Q SCH ×2 (09:36→22:24)
[2019-12-31] MEDS: FAMOTIDINE 20 MG TAB PO SCH ×2 (09:36→22:24)
[2019-12-31] MEDS: FUROSEMIDE 20 MG/2 ML INJ IV SCH (09:36)
[2019-12-31] MEDS: LINEZOLID 600 MG/300 ML BAG IV SCH ×2 (09:36→22:24)
[2019-12-31] MEDS: FOLIC ACID 1 MG TAB PO SCH (09:36)
[2019-12-31] MEDS: ASPIRIN 81 MG TAB CHEW PO SCH (09:36)
[2019-12-31 10:45] LABS: Calcium 8.9 mg/dL (8.4-10.2)
[2019-12-31] MEDS ORDERED: LACTATED RINGERS 1,000 ML IV SCH ×2 (11:00→12:00)
[2019-12-31] MEDS: POTASSIUM CHLORIDE 20 MEQ PACKET FEEDTUBE SCH (11:05)
[2019-12-31 12:16] LABS: ABG Base Excess 3.4 mmol/L (-2.0-3.0); ABG HCO3 30.1 mmol/L (20.0-26.0); ABG Methemoglobin 0.6 % (0.0-1.5); ABG Oxygen Saturation 97.1 % (95.0-99.0); ABG PCO2 59.1 mm Hg; ABG PH 7.325 pH Units (7.350-7.450); ABG PO2 97.2 mm Hg (80.0-90.0)
--- NOTE | 2019-12-31 12:38 | Progress Note ---
Assessment and Plan Acute Hypoxemic Respiratory Failure Severe Sepsis with Shock Bilateral Pneumonia JAGDEEP secondary to ATN, non oliguric Hypernatremia Morbid Obesity H/O CHF JOE - wean vasopressors for MAP > 65 mmHg -Bowel regimen -Free water and hypotonic solutions fro hypernatremia - continue care as below otherwise; - Daily SAT and SBT assessment as tolerated - accuchecks with glycemic control per SSI (While critically ill target blood glucose of 140-180 mg/dL; avoid hypoglycemia) - sedation for target RASS 0 to -1 - continue to wean supplemental oxygen for target O2 sat's > 92% acutely - continue bronchodilators with pulmonary hygiene per RT - VAP bundle addressed - lung protective strategies - wean per pulmonary driven protocols otherwise - continue to avoid benzodiazepine's, reduce the possibility of delirium - resume AB's per ID rec's - prn analgesia per CPOT score - Maintenance of sleep-wake cycle - continue to avoid benzodiazepines, reduce the possibility of delirium - continue enteral nutritional support at goal rate as tolerated - G.I. & VTE prophylaxis - PT/OT/ROM exercises - continue mobility protocols for pressure ulcer prophylaxis - repeat COVID-19 test negative - continue aspiration precautions - continue accuchecks with glycemic control per SSI (While critically ill target blood glucose of 140-180 mg/dL; avoid hypoglycemia) - Monitor hemodynamics closely - continue other care per attending / other consultants - discharge planning ongoing concurrently - LTAC evaluation requested .... Re-evaluate in am & prn CONDITION: CRITICAL PROGNOSIS: GUARDED CODE STATUS: FULL CODE The high probability of a clinically significant, sudden or life-threatening deterioration of the [respiratory, cardiovascular, GI & neurologic] system(s) required my full and direct attention, intervention and personal management. The aggregate critical care time was [32] minutes without overlap. Time includes spent on; [x] Data Review and interpretation [x] Patient assessment and monitoring of vital signs [x] Documentation [x] Medication orders and management Subjective Date of service: 12/31/19 Principal diagnosis: Ac. Hypoxemic Resp Failure; Septic Shock; Magdiel. PNA; PUI COVID-19; CHF; JOE Interval history: Patient is seen today for: Acute Hypoxemic Respiratory Failure; Severe Sepsis with Shock; Bilateral Pneumonia; PUI COVID-19; Morbid Obesity; H/O CHF; JOE Seen and examined at bedside; 24hour events reviewed; nursing and respiratory care staff consulted; no adverse overnight events reported to me; resting peacefully in bed; remains on MVS; AMS is persistent; no emesis or overt aspiration; sputum grew MRSA; remains on vasopressor support, distended abdomen still no bowel movement Objective Vital Signs - 12hr 12/31/19 12/31/19 12/31/19 01:00 01:30 02:00 Temperature Pulse Rate 80 87 79 Pulse Rate [ Bilateral] Pulse Rate [ From Monitor] Respiratory 20 20 22 Rate Respiratory Rate [Bilateral ] Blood Pressure 104/57 85/44 111/60 O2 Sat by Pulse 92 89 Oximetry 12/31/19 12/31/19 12/31/19 02:30 03:00 03:30 Temperature Pulse Rate 82 82 82 Pulse Rate [ Bilateral] Pulse Rate [ From Monitor] Respiratory 25 H 21 Rate Respiratory Rate [Bilateral ] Blood Pressure 108/60 101/57 100/56 O2 Sat by Pulse 89 92 91 Oximetry 12/31/19 12/31/19 12/31/19 04:00 04:27 04:30 Temperature 98.5 F Pulse Rate 81 78 76 Pulse Rate [ Bilateral] Pulse Rate [ 87 From Monitor] Respiratory 20 Rate Respiratory Rate [Bilateral ] Blood Pressure 104/58 93/57 105/59 O2 Sat by Pulse 92 94 91 Oximetry 12/31/19 12/31/19 12/31/19 05:00 05:30 06:00 Temperature Pulse Rate 81 80 76 Pulse Rate [ Bilateral] Pulse Rate [ From Monitor] Respiratory Rate Respiratory Rate [Bilateral ] Blood Pressure 110/57 102/59 104/59 O2 Sat by Pulse 94 93 Oximetry 12/31/19 12/31/19 12/31/19 06:30 07:00 07:30 Temperature Pulse Rate 77 75 76 Pulse Rate [ Bilateral] Pulse Rate [ From Monitor] Respiratory Rate Respiratory Rate [Bilateral ] Blood Pressure 101/57 106/61 105/60 O2 Sat by Pulse 94 94 96 Oximetry 12/31/19 12/31/19 12/31/19 08:00 08:21 08:30 Temperature 98.4 F Pulse Rate 80 73 85 Pulse Rate [ 75 Bilateral] Pulse Rate [ 80 From Monitor] Respiratory 24 18 Rate Respiratory 24 Rate [Bilateral ] Blood Pressure 100/67 110/61 110/71 O2 Sat by Pulse 95 91 94 Oximetry 12/31/19 09:00 Temperature Pulse Rate 81 Pulse Rate [ Bilateral] Pulse Rate [ From Monitor] Respiratory 24 Rate Respiratory Rate [Bilateral ] Blood Pressure 105/57 O2 Sat by Pulse 95 Oximetry Constitutional: no acute distress, other (elderly obese AAM with mildly increrased respiratory effort at rest) Eyes: non-icteric ENT: oropharynx moist, other (ETT in place, 23 cm at the lip) Neck: supple, no lymphadenopathy, no JVD Effort: mildly labored Ascultation: Bilateral: diminished breath sounds, rhonchi Percussion: Bilateral: not dull Cardiovascular: regular rate and rhythm, other (S1,S2) Gastrointestinal: normoactive bowel sounds, soft, non-tender, other (protuberant) Integumentary: rash (stasis dermatyitis) Extremities: no cyanosis, pink and warm, pulses normal, no ischemia or petechiae, edema (trace) Neurologic: pupils equal and round, other CBC and BMP: 01/06/20 04:58 01/06/20 04:58 ABG, PT/INR, D-dimer: ABG ABG pH 7.325 pH Units (7.350-7.450) L 12/31/19 11:50 ABG pCO2 59.1 mm Hg 12/31/19 11:50 ABG pO2 97.2 mm Hg (80.0-90.0) H 12/31/19 11:50 ABG O2 Saturation 97.1 % (95.0-99.0) 12/31/19 11:50 PT/INR, D-dimer PT 14.0 Sec. (12.2-14.9) 12/18/19 14:45 INR 1.10 (0.87-1.13) 12/18/19 14:45 D-Dimer 534.45 ng/mlDDU (0-234) H 12/18/19 14:45 Abnormal lab findings: Abnormal Labs 12/18/19 12/18/19 12/18/19 12:23 14:45 14:45 WBC Hgb 10.4 L Hct 35.2 L MCV MCH 25 L MCHC 30 L RDW 18.8 H Lymph % (Auto) [place] % (Auto) 11.6 H Eos % (Auto) 4.8 H Lymph # [place] # 1.0 H Seg Neutrophils % Monocytes % (Manual) Monocytes # (Manual) D-Dimer ABG pH ABG pO2 ABG HCO3 ABG O2 Saturation ABG Base Excess ABG Hemoglobin Oxyhemoglobin Sodium Potassium Chloride Carbon Dioxide BUN Creatinine Glucose POC Glucose 328 H Lactic Acid Calcium Magnesium AST ALT Lactate Dehydrogenase Total Creatine Kinase 40 L C-Reactive Protein Albumin Urine WBC (Auto) Urine Total Protein Digoxin Salicylates Acetaminophen 12/18/19 12/18/19 12/18/19 14:45 14:45 14:45 WBC Hgb Hct MCV MCH MCHC RDW Lymph % (Auto) [place] % (Auto) Eos % (Auto) Lymph # [place] # Seg Neutrophils % Monocytes % (Manual) Monocytes # (Manual) D-Dimer 534.45 H ABG pH ABG pO2 ABG HCO3 ABG O2 Saturation ABG Base Excess ABG Hemoglobin Oxyhemoglobin Sodium 156 H Potassium Chloride 112.3 H Carbon Dioxide 31 H BUN 32 H Creatinine Glucose 328 H POC Glucose Lactic Acid Calcium Magnesium AST ALT Lactate Dehydrogenase 235 H Total Creatine Kinase C-Reactive Protein 8.50 H Albumin 3.6 L Urine WBC (Auto) Urine Total Protein Digoxin 0.3 L Salicylates < 0.3 L Acetaminophen 12/18/19 12/18/19 12/18/19 14:45 14:45 16:00 WBC Hgb Hct MCV MCH MCHC RDW Lymph % (Auto) [place] % (Auto) Eos % (Auto) Lymph # [place] # Seg Neutrophils % Monocytes % (Manual) Monocytes # (Manual) D-Dimer ABG pH ABG pO2 69.8 L ABG HCO3 31.8 H ABG O2 Saturation ABG Base Excess 5.4 H ABG Hemoglobin 10.0 L Oxyhemoglobin 92.9 L Sodium Potassium Chloride Carbon Dioxide BUN Creatinine Glucose 314 H POC Glucose Lactic Acid Calcium Magnesium AST ALT Lactate Dehydrogenase 236 H Total Creatine Kinase C-Reactive Protein 8.40 H Albumin Urine WBC (Auto) Urine Total Protein Digoxin Salicylates Acetaminophen < 5.0 L 12/18/19 12/18/19 12/18/19 16:35 18:30 22:56 WBC Hgb Hct MCV MCH MCHC RDW Lymph % (Auto) [place] % (Auto) Eos % (Auto) Lymph # [place] # Seg Neutrophils % Monocytes % (Manual) Monocytes # (Manual) D-Dimer ABG pH ABG pO2 ABG HCO3 ABG O2 Saturation ABG Base Excess ABG Hemoglobin Oxyhemoglobin Sodium Potassium Chloride Carbon Dioxide BUN Creatinine Glucose POC Glucose 310 H 353 H Lactic Acid 2.50 H* Calcium Magnesium AST ALT Lactate Dehydrogenase Total Creatine Kinase C-Reactive Protein Albumin Urine WBC (Auto) Urine Total Protein Digoxin Salicylates Acetaminophen 12/19/19 12/19/19 12/19/19 04:13 04:13 06:00 WBC Hgb 10.0 L Hct 34.2 L MCV MCH 25 L MCHC 29 L RDW 19.0 H Lymph % (Auto) [place] % (Auto) 10.1 H Eos % (Auto) Lymph # [place] # 1.1 H Seg Neutrophils % 71.8 H Monocytes % (Manual) Monocytes # (Manual) D-Dimer ABG pH ABG pO2 186.5 H ABG HCO3 27.8 H ABG O2 Saturation 99.1 H ABG Base Excess ABG Hemoglobin 10.4 L Oxyhemoglobin Sodium 157 H Potassium Chloride 119.1 H Carbon Dioxide BUN 26 H Creatinine Glucose 302 H POC Glucose Lactic Acid Calcium 7.9 L Magnesium AST 85 H ALT 61 H Lactate Dehydrogenase Total Creatine Kinase C-Reactive Protein Albumin 3.0 L Urine WBC (Auto) Urine Total Protein Digoxin Salicylates Acetaminophen 12/19/19 12/19/19 12/19/19 08:30 11:55 16:50 WBC Hgb Hct MCV MCH MCHC RDW Lymph % (Auto) [place] % (Auto) Eos % (Auto) Lymph # [place] # Seg Neutrophils % Monocytes % (Manual) Monocytes # (Manual) D-Dimer ABG pH ABG pO2 ABG HCO3 ABG O2 Saturation ABG Base Excess ABG Hemoglobin Oxyhemoglobin Sodium Potassium Chloride Carbon Dioxide BUN Creatinine Glucose POC Glucose 264 H 251 H Lactic Acid Calcium Magnesium AST ALT Lactate Dehydrogenase Total Creatine Kinase C-Reactive Protein Albumin Urine WBC (Auto) 7.0 H Urine Total Protein Digoxin Salicylates Acetaminophen 12/19/19 12/19/19 12/20/19 17:41 23:42 03:35 WBC Hgb Hct MCV MCH MCHC RDW Lymph % (Auto) [place] % (Auto) Eos % (Auto) Lymph # [place] # Seg Neutrophils % Monocytes % (Manual) Monocytes # (Manual) D-Dimer ABG pH ABG pO2 ABG HCO3 27.7 H ABG O2 Saturation ABG Base Excess ABG Hemoglobin 11.6 L Oxyhemoglobin 94.9 L Sodium Potassium Chloride Carbon Dioxide BUN Creatinine Glucose POC Glucose 180 H 205 H Lactic Acid Calcium Magnesium AST ALT Lactate Dehydrogenase Total Creatine Kinase C-Reactive Protein Albumin Urine WBC (Auto) Urine Total Protein Digoxin Salicylates Acetaminophen 12/20/19 12/20/19 12/20/19 04:45 04:45 05:27 WBC Hgb 9.4 L Hct 31.4 L MCV MCH 25 L MCHC 30 L RDW 19.4 H Lymph % (Auto) [place] % (Auto) 10.2 H Eos % (Auto) 6.0 H Lymph # 0.9 L [place] # Seg Neutrophils % Monocytes % (Manual) Monocytes # (Manual) D-Dimer ABG pH ABG pO2 ABG HCO3 ABG O2 Saturation ABG Base Excess ABG Hemoglobin Oxyhemoglobin Sodium 153 H Potassium Chloride 114.6 H Carbon Dioxide BUN Creatinine Glucose 170 H POC Glucose 188 H Lactic Acid Calcium 7.9 L Magnesium AST ALT Lactate Dehydrogenase Total Creatine Kinase C-Reactive Protein Albumin Urine WBC (Auto) Urine Total Protein Digoxin Salicylates Acetaminophen 12/20/19 12/20/19 12/21/19 12:26 18:20 00:20 WBC Hgb Hct MCV MCH MCHC RDW Lymph % (Auto) [place] % (Auto) Eos % (Auto) Lymph # [place] # Seg Neutrophils % Monocytes % (Manual) Monocytes # (Manual) D-Dimer ABG pH ABG pO2 ABG HCO3 ABG O2 Saturation ABG Base Excess ABG Hemoglobin Oxyhemoglobin Sodium Potassium Chloride Carbon Dioxide BUN Creatinine Glucose POC Glucose 200 H 263 H 218 H Lactic Acid Calcium Magnesium AST ALT Lactate Dehydrogenase Total Creatine Kinase C-Reactive Protein Albumin Urine WBC (Auto) Urine Total Protein Digoxin Salicylates Acetaminophen 12/21/19 12/21/19 12/21/19 04:38 05:26 12:35 WBC Hgb Hct MCV MCH MCHC RDW Lymph % (Auto) [place] % (Auto) Eos % (Auto) Lymph # [place] # Seg Neutrophils % Monocytes % (Manual) Monocytes # (Manual) D-Dimer ABG pH ABG pO2 ABG HCO3 ABG O2 Saturation ABG Base Excess ABG Hemoglobin Oxyhemoglobin Sodium 149 H Potassium 3.5 L Chloride 110.5 H Carbon Dioxide BUN Creatinine Glucose 158 H POC Glucose 193 H 193 H Lactic Acid Calcium Magnesium AST ALT Lactate Dehydrogenase Total Creatine Kinase C-Reactive Protein Albumin Urine WBC (Auto) Urine Total Protein Digoxin Salicylates Acetaminophen 12/21/19 12/22/19 12/22/19 18:29 00:03 05:15 WBC Hgb 10.3 L Hct 34.7 L MCV MCH 25 L MCHC 30 L RDW 19.4 H Lymph % (Auto) 9.0 L [place] % (Auto) 12.3 H Eos % (Auto) 5.0 H Lymph # 0.5 L [place] # Seg Neutrophils % 73.2 H Monocytes % (Manual) Monocytes # (Manual) D-Dimer ABG pH ABG pO2 ABG HCO3 ABG O2 Saturation ABG Base Excess ABG Hemoglobin Oxyhemoglobin Sodium Potassium Chloride Carbon Dioxide BUN Creatinine Glucose POC Glucose 186 H 143 H Lactic Acid Calcium Magnesium AST ALT Lactate Dehydrogenase Total Creatine Kinase C-Reactive Protein Albumin Urine WBC (Auto) Urine Total Protein Digoxin Salicylates Acetaminophen 12/22/19 12/22/19 12/22/19 05:15 06:02 12:13 WBC Hgb Hct MCV MCH MCHC RDW Lymph % (Auto) [place] % (Auto) Eos % (Auto) Lymph # [place] # Seg Neutrophils % Monocytes % (Manual) Monocytes # (Manual) D-Dimer ABG pH ABG pO2 ABG HCO3 ABG O2 Saturation ABG Base Excess ABG Hemoglobin Oxyhemoglobin Sodium 152 H Potassium Chloride 113.5 H Carbon Dioxide BUN Creatinine Glucose 126 H POC Glucose 144 H 159 H Lactic Acid Calcium Magnesium AST ALT Lactate Dehydrogenase Total Creatine Kinase C-Reactive Protein Albumin Urine WBC (Auto) Urine Total Protein Digoxin Salicylates Acetaminophen 12/22/19 12/22/19 12/23/19 18:03 23:50 05:27 WBC Hgb Hct MCV MCH MCHC RDW Lymph % (Auto) [place] % (Auto) Eos % (Auto) Lymph # [place] # Seg Neutrophils % Monocytes % (Manual) Monocytes # (Manual) D-Dimer ABG pH ABG pO2 ABG HCO3 ABG O2 Saturation ABG Base Excess ABG Hemoglobin Oxyhemoglobin Sodium Potassium Chloride Carbon Dioxide BUN Creatinine Glucose POC Glucose 140 H 227 H 185 H Lactic Acid Calcium Magnesium AST ALT Lactate Dehydrogenase Total Creatine Kinase C-Reactive Protein Albumin Urine WBC (Auto) Urine Total Protein Digoxin Salicylates Acetaminophen 12/23/19 12/23/19 12/23/19 12:13 16:05 16:40 WBC Hgb Hct MCV MCH MCHC RDW Lymph % (Auto) [place] % (Auto) Eos % (Auto) Lymph # [place] # Seg Neutrophils % Monocytes % (Manual) Monocytes # (Manual) D-Dimer ABG pH 7.259 L ABG pO2 76.2 L ABG HCO3 30.6 H ABG O2 Saturation 94.6 L ABG Base Excess ABG Hemoglobin 11.5 L Oxyhemoglobin 92.2 L Sodium 163 H* D Potassium 3.4 L Chloride 120.1 H Carbon Dioxide BUN Creatinine Glucose 162 H POC Glucose 132 H Lactic Acid Calcium Magnesium AST ALT Lactate Dehydrogenase Total Creatine Kinase C-Reactive Protein Albumin Urine WBC (Auto) Urine Total Protein Digoxin Salicylates Acetaminophen 12/23/19 12/24/19 12/24/19 17:53 00:48 04:20 WBC Hgb Hct MCV MCH MCHC RDW Lymph % (Auto) [place] % (Auto) Eos % (Auto) Lymph # [place] # Seg Neutrophils % Monocytes % (Manual) Monocytes # (Manual) D-Dimer ABG pH ABG pO2 ABG HCO3 30.4 H ABG O2 Saturation ABG Base Excess 3.9 H ABG Hemoglobin 10.3 L Oxyhemoglobin 94.4 L Sodium Potassium Chloride Carbon Dioxide BUN Creatinine Glucose POC Glucose 180 H 174 H Lactic Acid Calcium Magnesium AST ALT Lactate Dehydrogenase Total Creatine Kinase C-Reactive Protein Albumin Urine WBC (Auto) Urine Total Protein Digoxin Salicylates Acetaminophen 12/24/19 12/24/19 12/24/19 04:53 04:53 11:50 WBC Hgb 9.7 L Hct 33.2 L MCV MCH 25 L MCHC 29 L RDW 20.1 H Lymph % (Auto) [place] % (Auto) Eos % (Auto) Lymph # [place] # Seg Neutrophils % Monocytes % (Manual) 15.0 H Monocytes # (Manual) 0.9 H D-Dimer ABG pH ABG pO2 ABG HCO3 ABG O2 Saturation ABG Base Excess ABG Hemoglobin Oxyhemoglobin Sodium 163 H* Potassium 3.2 L Chloride 122.6 H Carbon Dioxide BUN Creatinine Glucose 168 H POC Glucose 190 H Lactic Acid Calcium Magnesium AST ALT Lactate Dehydrogenase Total Creatine Kinase C-Reactive Protein Albumin Urine WBC (Auto) Urine Total Protein Digoxin Salicylates Acetaminophen 12/24/19 12/24/19 12/24/19 15:00 16:28 21:15 WBC Hgb Hct MCV MCH MCHC RDW Lymph % (Auto) [place] % (Auto) Eos % (Auto) Lymph # [place] # Seg Neutrophils % Monocytes % (Manual) Monocytes # (Manual) D-Dimer ABG pH ABG pO2 ABG HCO3 ABG O2 Saturation ABG Base Excess ABG Hemoglobin Oxyhemoglobin Sodium 165 H* D 163 H* Potassium Chloride Carbon Dioxide BUN Creatinine Glucose POC Glucose 160 H Lactic Acid Calcium Magnesium AST ALT Lactate Dehydrogenase Total Creatine Kinase C-Reactive Protein Albumin Urine WBC (Auto) Urine Total Protein Digoxin Salicylates Acetaminophen 12/25/19 12/25/19 12/25/19 00:31 05:38 05:46 WBC Hgb 9.7 L Hct 32.5 L MCV MCH 25 L MCHC 30 L RDW 19.4 H Lymph % (Auto) [place] % (Auto) Eos % (Auto) Lymph # [place] # Seg Neutrophils % Monocytes % (Manual) Monocytes # (Manual) D-Dimer ABG pH ABG pO2 ABG HCO3 ABG O2 Saturation ABG Base Excess ABG Hemoglobin Oxyhemoglobin Sodium Potassium Chloride Carbon Dioxide BUN Creatinine Glucose POC Glucose 182 H 194 H Lactic Acid Calcium Magnesium AST ALT Lactate Dehydrogenase Total Creatine Kinase C-Reactive Protein Albumin Urine WBC (Auto) Urine Total Protein Digoxin Salicylates Acetaminophen 12/25/19 12/25/19 12/25/19 05:46 11:35 11:38 WBC Hgb Hct MCV MCH MCHC RDW Lymph % (Auto) [place] % (Auto) Eos % (Auto) Lymph # [place] # Seg Neutrophils % Monocytes % (Manual) Monocytes # (Manual) D-Dimer ABG pH 7.330 L ABG pO2 65.7 L ABG HCO3 32.6 H ABG O2 Saturation 92.5 L ABG Base Excess 5.3 H ABG Hemoglobin 10.4 L Oxyhemoglobin 90.0 L Sodium 166 H* Potassium 2.9 L* Chloride 124.5 H Carbon Dioxide BUN Creatinine Glucose 190 H POC Glucose 192 H Lactic Acid Calcium Magnesium AST ALT Lactate Dehydrogenase Total Creatine Kinase C-Reactive Protein Albumin Urine WBC (Auto) Urine Total Protein Digoxin Salicylates Acetaminophen 12/25/19 12/25/19 12/25/19 13:01 16:45 17:20 WBC Hgb Hct MCV MCH MCHC RDW Lymph % (Auto) [place] % (Auto) Eos % (Auto) Lymph # [place] # Seg Neutrophils % Monocytes % (Manual) Monocytes # (Manual) D-Dimer ABG pH 7.296 L ABG pO2 101.5 H ABG HCO3 33.2 H ABG O2 Saturation ABG Base Excess 5.3 H ABG Hemoglobin 9.6 L Oxyhemoglobin 94.6 L Sodium 174 H* Potassium Chloride Carbon Dioxide BUN Creatinine Glucose POC Glucose Lactic Acid Calcium Magnesium AST ALT Lactate Dehydrogenase Total Creatine Kinase C-Reactive Protein Albumin Urine WBC (Auto) Urine Total Protein < 4 L Digoxin Salicylates Acetaminophen 12/25/19 12/25/19 12/26/19 17:48 18:50 00:43 WBC Hgb Hct MCV MCH MCHC RDW Lymph % (Auto) [place] % (Auto) Eos % (Auto) Lymph # [place] # Seg Neutrophils % Monocytes % (Manual) Monocytes # (Manual) D-Dimer ABG pH ABG pO2 ABG HCO3 ABG O2 Saturation ABG Base Excess ABG Hemoglobin Oxyhemoglobin Sodium 166 H* 164 H* Potassium Chloride 127.3 H Carbon Dioxide BUN Creatinine Glucose 220 H POC Glucose 252 H Lactic Acid Calcium Magnesium AST ALT Lactate Dehydrogenase Total Creatine Kinase C-Reactive Protein Albumin Urine WBC (Auto) Urine Total Protein Digoxin Salicylates Acetaminophen 12/26/19 12/26/19 12/26/19 05:31 08:07 08:07 WBC 4.3 L Hgb 9.6 L Hct 32.1 L MCV MCH 26 L MCHC 30 L RDW 20.5 H Lymph % (Auto) [place] % (Auto) Eos % (Auto) Lymph # [place] # Seg Neutrophils % Monocytes % (Manual) Monocytes # (Manual) D-Dimer ABG pH ABG pO2 ABG HCO3 ABG O2 Saturation ABG Base Excess ABG Hemoglobin Oxyhemoglobin Sodium 162 H* Potassium Chloride 122.1 H Carbon Dioxide BUN Creatinine Glucose 247 H POC Glucose 187 H Lactic Acid Calcium Magnesium AST ALT Lactate Dehydrogenase Total Creatine Kinase C-Reactive Protein Albumin Urine WBC (Auto) Urine Total Protein Digoxin Salicylates Acetaminophen 12/26/19 12/26/19 12/26/19 08:07 12:20 16:25 WBC Hgb Hct MCV MCH MCHC RDW Lymph % (Auto) [place] % (Auto) Eos % (Auto) Lymph # [place] # Seg Neutrophils % Monocytes % (Manual) Monocytes # (Manual) D-Dimer ABG pH 7.290 L ABG pO2 73.2 L ABG HCO3 33.2 H ABG O2 Saturation 94.9 L ABG Base Excess 5.2 H ABG Hemoglobin 10.0 L Oxyhemoglobin 92.5 L Sodium 159 H Potassium Chloride Carbon Dioxide BUN Creatinine Glucose POC Glucose 234 H Lactic Acid Calcium Magnesium AST ALT Lactate Dehydrogenase Total Creatine Kinase C-Reactive Protein Albumin Urine WBC (Auto) Urine Total Protein Digoxin Salicylates Acetaminophen 12/26/19 12/26/19 12/26/19 17:33 22:35 23:30 WBC Hgb Hct MCV MCH MCHC RDW Lymph % (Auto) [place] % (Auto) Eos % (Auto) Lymph # [place] # Seg Neutrophils % Monocytes % (Manual) Monocytes # (Manual) D-Dimer ABG pH ABG pO2 ABG HCO3 ABG O2 Saturation ABG Base Excess ABG Hemoglobin Oxyhemoglobin Sodium Potassium Chloride Carbon Dioxide BUN Creatinine Glucose POC Glucose 244 H 208 H 287 H Lactic Acid Calcium Magnesium AST ALT Lactate Dehydrogenase Total Creatine Kinase C-Reactive Protein Albumin Urine WBC (Auto) Urine Total Protein Digoxin Salicylates Acetaminophen 12/27/19 12/27/19 12/27/19 03:48 03:48 03:48 WBC Hgb 10.1 L Hct 35.4 L MCV MCH 25 L MCHC 29 L RDW 20.1 H Lymph % (Auto) [place] % (Auto) Eos % (Auto) Lymph # [place] # Seg Neutrophils % Monocytes % (Manual) Monocytes # (Manual) D-Dimer ABG pH ABG pO2 ABG HCO3 ABG O2 Saturation ABG Base Excess ABG Hemoglobin Oxyhemoglobin Sodium 160 H Potassium Chloride 118.8 H Carbon Dioxide 33 H BUN Creatinine Glucose 217 H POC Glucose Lactic Acid Calcium Magnesium 2.70 H AST ALT Lactate Dehydrogenase Total Creatine Kinase C-Reactive Protein Albumin Urine WBC (Auto) Urine Total Protein Digoxin Salicylates Acetaminophen 12/27/19 12/27/19 12/27/19 05:50 11:58 16:05 WBC Hgb Hct MCV MCH MCHC RDW Lymph % (Auto) [place] % (Auto) Eos % (Auto) Lymph # [place] # Seg Neutrophils % Monocytes % (Manual) Monocytes # (Manual) D-Dimer ABG pH 7.180 L* ABG pO2 73.6 L ABG HCO3 34.8 H ABG O2 Saturation 92.7 L ABG Base Excess 3.8 H ABG Hemoglobin 12.0 L Oxyhemoglobin 90.2 L Sodium Potassium Chloride Carbon Dioxide BUN Creatinine Glucose POC Glucose 224 H 218 H Lactic Acid Calcium Magnesium AST ALT Lactate Dehydrogenase Total Creatine Kinase C-Reactive Protein Albumin Urine WBC (Auto) Urine Total Protein Digoxin Salicylates Acetaminophen 12/27/19 12/27/19 12/27/19 18:05 19:50 21:53 WBC Hgb Hct MCV MCH MCHC RDW Lymph % (Auto) [place] % (Auto) Eos % (Auto) Lymph # [place] # Seg Neutrophils % Monocytes % (Manual) Monocytes # (Manual) D-Dimer ABG pH 7.328 L ABG pO2 49.9 L ABG HCO3 33.3 H ABG O2 Saturation 87.1 L ABG Base Excess 5.7 H ABG Hemoglobin 11.2 L Oxyhemoglobin 84.8 L Sodium Potassium Chloride Carbon Dioxide BUN Creatinine Glucose POC Glucose 214 H 178 H Lactic Acid Calcium Magnesium AST ALT Lactate Dehydrogenase Total Creatine Kinase C-Reactive Protein Albumin Urine WBC (Auto) Urine Total Protein Digoxin Salicylates Acetaminophen 12/28/19 12/28/19 12/28/19 00:42 04:37 04:37 WBC Hgb 9.8 L Hct 33.5 L MCV MCH 25 L MCHC 29 L RDW 21.1 H Lymph % (Auto) [place] % (Auto) Eos % (Auto) Lymph # [place] # Seg Neutrophils % Monocytes % (Manual) Monocytes # (Manual) D-Dimer ABG pH ABG pO2 ABG HCO3 ABG O2 Saturation ABG Base Excess ABG Hemoglobin Oxyhemoglobin Sodium 157 H Potassium 3.4 L Chloride 117.5 H Carbon Dioxide BUN Creatinine Glucose 193 H POC Glucose 157 H Lactic Acid Calcium Magnesium AST ALT Lactate Dehydrogenase Total Creatine Kinase C-Reactive Protein Albumin Urine WBC (Auto) Urine Total Protein Digoxin Salicylates Acetaminophen 12/28/19 12/28/19 12/28/19 04:52 05:19 12:05 WBC Hgb Hct MCV MCH MCHC RDW Lymph % (Auto) [place] % (Auto) Eos % (Auto) Lymph # [place] # Seg Neutrophils % Monocytes % (Manual) Monocytes # (Manual) D-Dimer ABG pH ABG pO2 51.7 L ABG HCO3 28.7 H ABG O2 Saturation 89.9 L ABG Base Excess 4.1 H ABG Hemoglobin 9.7 L Oxyhemoglobin 87.7 L Sodium Potassium Chloride Carbon Dioxide BUN Creatinine Glucose POC Glucose 202 H 248 H Lactic Acid Calcium Magnesium AST ALT Lactate Dehydrogenase Total Creatine Kinase C-Reactive Protein Albumin Urine WBC (Auto) Urine Total Protein Digoxin Salicylates Acetaminophen 12/28/19 12/28/19 12/28/19 18:11 21:15 23:22 WBC Hgb Hct MCV MCH MCHC RDW Lymph % (Auto) [place] % (Auto) Eos % (Auto) Lymph # [place] # Seg Neutrophils % Monocytes % (Manual) Monocytes # (Manual) D-Dimer ABG pH ABG pO2 ABG HCO3 ABG O2 Saturation ABG Base Excess ABG Hemoglobin Oxyhemoglobin Sodium Potassium Chloride Carbon Dioxide BUN Creatinine Glucose POC Glucose 226 H 217 H 227 H Lactic Acid Calcium Magnesium AST ALT Lactate Dehydrogenase Total Creatine Kinase C-Reactive Protein Albumin Urine WBC (Auto) Urine Total Protein Digoxin Salicylates Acetaminophen 12/29/19 12/29/19 12/29/19 04:09 04:59 04:59 WBC 11.1 H Hgb 9.3 L Hct 31.1 L MCV 81 L MCH 24 L MCHC 30 L RDW 19.9 H Lymph % (Auto) [place] % (Auto) Eos % (Auto) Lymph # [place] # Seg Neutrophils % Monocytes % (Manual) Monocytes # (Manual) D-Dimer ABG pH 7.473 H ABG pO2 126.1 H ABG HCO3 29.2 H ABG O2 Saturation ABG Base Excess 5.1 H ABG Hemoglobin 8.4 L Oxyhemoglobin Sodium 157 H Potassium 3.2 L Chloride 118.2 H Carbon Dioxide BUN Creatinine 1.7 H Glucose 229 H POC Glucose Lactic Acid Calcium Magnesium AST ALT Lactate Dehydrogenase Total Creatine Kinase C-Reactive Protein Albumin Urine WBC (Auto) Urine Total Protein Digoxin Salicylates Acetaminophen 12/29/19 12/29/19 12/29/19 05:15 12:13 17:59 WBC Hgb Hct MCV MCH MCHC RDW Lymph % (Auto) [place] % (Auto) Eos % (Auto) Lymph # [place] # Seg Neutrophils % Monocytes % (Manual) Monocytes # (Manual) D-Dimer ABG pH ABG pO2 ABG HCO3 ABG O2 Saturation ABG Base Excess ABG Hemoglobin Oxyhemoglobin Sodium Potassium Chloride Carbon Dioxide BUN Creatinine Glucose POC Glucose 221 H 392 H 365 H Lactic Acid Calcium Magnesium AST ALT Lactate Dehydrogenase Total Creatine Kinase C-Reactive Protein Albumin Urine WBC (Auto) Urine Total Protein Digoxin Salicylates Acetaminophen 12/29/19 12/29/19 12/30/19 20:25 23:38 04:45 WBC Hgb Hct MCV MCH MCHC RDW Lymph % (Auto) [place] % (Auto) Eos % (Auto) Lymph # [place] # Seg Neutrophils % Monocytes % (Manual) Monocytes # (Manual) D-Dimer ABG pH 7.261 L 7.343 L ABG pO2 60.3 L 54.3 L ABG HCO3 32.1 H 30.9 H ABG O2 Saturation 87.6 L 88.3 L ABG Base Excess 3.7 H 4.0 H ABG Hemoglobin 9.7 L 11.6 L Oxyhemoglobin 85.2 L 86.0 L Sodium Potassium Chloride Carbon Dioxide BUN Creatinine Glucose POC Glucose 402 H Lactic Acid Calcium Magnesium AST ALT Lactate Dehydrogenase Total Creatine Kinase C-Reactive Protein Albumin Urine WBC (Auto) Urine Total Protein Digoxin Salicylates Acetaminophen 12/30/19 12/30/19 12/30/19 05:06 05:06 05:06 WBC 11.7 H Hgb 9.4 L Hct 32.4 L MCV 83 L MCH 24 L MCHC 29 L RDW 20.2 H Lymph % (Auto) [place] % (Auto) Eos % (Auto) Lymph # [place] # Seg Neutrophils % Monocytes % (Manual) Monocytes # (Manual) D-Dimer ABG pH ABG pO2 ABG HCO3 ABG O2 Saturation ABG Base Excess ABG Hemoglobin Oxyhemoglobin Sodium 159 H Potassium 3.2 L Chloride 120.1 H Carbon Dioxide 31 H BUN Creatinine 1.9 H Glucose 404 H POC Glucose Lactic Acid Calcium Magnesium 2.60 H AST ALT Lactate Dehydrogenase Total Creatine Kinase C-Reactive Protein Albumin Urine WBC (Auto) Urine Total Protein Digoxin Salicylates Acetaminophen 12/30/19 12/30/19 12/30/19 06:26 12:29 13:44 WBC Hgb Hct MCV MCH MCHC RDW Lymph % (Auto) [place] % (Auto) Eos % (Auto) Lymph # [place] # Seg Neutrophils % Monocytes % (Manual) Monocytes # (Manual) D-Dimer ABG pH ABG pO2 ABG HCO3 ABG O2 Saturation ABG Base Excess ABG Hemoglobin Oxyhemoglobin Sodium Potassium Chloride Carbon Dioxide BUN Creatinine Glucose POC Glucose 399 H 469 H > 500 H Lactic Acid Calcium Magnesium AST ALT Lactate Dehydrogenase Total Creatine Kinase C-Reactive Protein Albumin Urine WBC (Auto) Urine Total Protein Digoxin Salicylates Acetaminophen 12/30/19 12/30/19 12/30/19 13:51 16:32 18:05 WBC Hgb Hct MCV MCH MCHC RDW Lymph % (Auto) [place] % (Auto) Eos % (Auto) Lymph # [place] # Seg Neutrophils % Monocytes % (Manual) Monocytes # (Manual) D-Dimer ABG pH ABG pO2 ABG HCO3 ABG O2 Saturation ABG Base Excess ABG Hemoglobin Oxyhemoglobin Sodium Potassium Chloride Carbon Dioxide BUN Creatinine Glucose POC Glucose > 500 H 445 H 429 H Lactic Acid Calcium Magnesium AST ALT Lactate Dehydrogenase Total Creatine Kinase C-Reactive Protein Albumin Urine WBC (Auto) Urine Total Protein Digoxin Salicylates Acetaminophen 12/30/19 12/30/19 12/31/19 21:42 Unknown 00:00 WBC Hgb Hct MCV MCH MCHC RDW Lymph % (Auto) [place] % (Auto) Eos % (Auto) Lymph # [place] # Seg Neutrophils % Monocytes % (Manual) Monocytes # (Manual) D-Dimer ABG pH ABG pO2 ABG HCO3 ABG O2 Saturation ABG Base Excess ABG Hemoglobin Oxyhemoglobin Sodium Potassium Chloride Carbon Dioxide BUN Creatinine Glucose 498 H POC Glucose 371 H 452 H Lactic Acid Calcium Magnesium AST ALT Lactate Dehydrogenase Total Creatine Kinase C-Reactive Protein Albumin Urine WBC (Auto) Urine Total Protein Digoxin Salicylates Acetaminophen 12/31/19 12/31/19 12/31/19 04:31 05:42 08:01 WBC Hgb Hct MCV MCH MCHC RDW Lymph % (Auto) [place] % (Auto) Eos % (Auto) Lymph # [place] # Seg Neutrophils % Monocytes % (Manual) Monocytes # (Manual) D-Dimer ABG pH 7.251 L ABG pO2 62.4 L ABG HCO3 31.1 H ABG O2 Saturation 88.7 L ABG Base Excess ABG Hemoglobin 8.7 L Oxyhemoglobin 86.4 L Sodium Potassium Chloride Carbon Dioxide BUN Creatinine Glucose POC Glucose 443 H 443 H Lactic Acid Calcium Magnesium AST ALT Lactate Dehydrogenase Total Creatine Kinase C-Reactive Protein Albumin Urine WBC (Auto) Urine Total Protein Digoxin Salicylates Acetaminophen 12/31/19 12/31/19 10:00 11:50 WBC Hgb Hct MCV MCH MCHC RDW Lymph % (Auto) [place] % (Auto) Eos % (Auto) Lymph # [place] # Seg Neutrophils % Monocytes % (Manual) Monocytes # (Manual) D-Dimer ABG pH 7.325 L ABG pO2 97.2 H ABG HCO3 30.1 H ABG O2 Saturation ABG Base Excess 3.4 H ABG Hemoglobin 8.3 L Oxyhemoglobin 94.7 L Sodium 151 H D Potassium 3.2 L Chloride 113.0 H Carbon Dioxide BUN 23 H Creatinine 1.8 H Glucose 373 H POC Glucose Lactic Acid Calcium Magnesium AST ALT Lactate Dehydrogenase Total Creatine Kinase C-Reactive Protein Albumin Urine WBC (Auto) Urine Total Protein Digoxin Salicylates Acetaminophen Chest x-ray: image reviewed Allied health notes reviewed: RT
--- NOTE | 2019-12-31 14:04 | Progress Note ---
Assessment and Plan Assessment and plan: 59-year-old male past medical history diastolic CHF, OHS, HTN, DM 2, hypothyroidism admitted with confusion after being found by a neighbor. On arrival patient was found to be lethargic, and in respiratory distress and hypoxic. Patient was intubated in the ER because of hypoxic respiratory failure. Also noted to be hypotensive, placed on pressor admitted to ICU. Patient is negative for COVID-19, being treated for bilateral pneumonia. JAGDEEP improved with IV fluid, ID and critical care following. Chest x-ray: Left lower lobe airspace disease CT chest: 1. Patchy bilateral nodular and consolidative airspace opacities which are nonspecific but likely related to the reported history of Covid. 2. Multiple enlarged partially visualized left supraclavicular and lower cervical chain lymph nodes. While these are nonspecific and may be reactive, a neoplastic process is possible, recommend short interval follow-up after patient recovers from the acute episode. / Acute hypoxic respiratory failure Likely from bilateral pneumonia and diastolic heart failure Patient intubated, placed on ventilatory support. critical care team consulted in ED. Patient is extubated, continue nebulizer breathing treatment and as needed biPAP We will also do a swallow eval / Sepsis with shock cont IV antibiotic therapy, IV fluid resuscitation therapy, monitor urine output every shift, maintain mean arterial blood pressure greater than or equal to 65, s/p IV pressor support. / Suspected 2019-nCoV infection -ruled out with 2 negative test / Diastolic CHF Preserved EF based on prior echocardiogram Monitor weight strict I's/O, daily weight, monitor urine output every shift, submental oxygen, blood pressure control. /JAGDEEP, due to vasomotor nephropathy, present on admission -Creatinine improving, continue IV fluid -Likely due to severe sepsis and hypotension /hypernatremia, -due to dehydration and sepsis -change fluid to D5W - monitor BMP /Hypokalemia, replete / Diabetes type II Initiate tube feeding diet Sliding scale insulin, Accu-Chek, hypoglycemia protocol. / Hypothyroidism Synthroid therapy, supportive care. / Bilateral pneumonia Pneumonia protocol: IV antibiotic therapy with rocephin for total 7 days, pulse oximetry, /Cervical lymphadenopathy -Reactive versus infectious process versus malignancy -Need repeat scanning and further staging when medically more stable -Pulmonology and ID following / HTN (hypertension) -hold BP meds as patient is hypotensive Monitor blood pressure every shift, continue medical management. /History of obstructive sleep apnea -Patient currently on mechanical ventilation /Acute metabolic encephalopathy Secondary to hyponatremia. /Urinary retention, suspected in the ER -Patient having good urine output now, will hold any CT scan -Continue IV fluid / DVT prophylaxis SCD to bilateral lower extremities while in bed, prophylactic heparin 12/19/19: Negative for COVID-19, continue pressor and wean off as tolerated, con tinue IV antibiotic and follow cultures. 12/19: Weaned off from pressor, sodium 156>157>153 today, creatinine 1.4>1.2>1.0. Continue IV fluid. Wean off from vent as tolerated. Follow ID recommendation 12/20: Extubated today, continue to monitor in the ICU overnight if clinically stable with transfer out to [facility]/telemetry tomorrow a.m.. Sodium 149 today, continue IV fluid and monitor BMP. Swallow eval, PT OT eval. 2nd text for covid is negative 12/21: transfer to [facility], start on gentle hydration. mechanical soft diet 12/22: placed back on bipap, Na 163 - start on D5W, monitor bmp 12/23: spoke to sister, updated [id number], also discussed Pulmonary, will likely need LTAC. Obtain Nephrology due to persistent Hypernatremia. Will start on free water and continue to monitor. Remains of restriants for safety due to intermittent confusion. 12/24: Still with intermittent encephalopathy. Requiring restraints. Hypernatremia still persist continue hypotonic solution. Nephrology consulted. Free water started this morning will increase dose. Replace potassium as hypokalemia still persist 12/26/19: Clinically improving, BIPAP now PRN AND HS, Na improving, continue renal follow up. I have called [facility] in case they would like to transfer the patient tested previously requested. 12/26: Hypernatermia still persist, had pulled out NGT yesterday, Continue free water, Continue Bipap, [place] states he is not yet stable for transfer. Although from our critical care team this patient has been cleared for to be able to transfer. 12/27: Patient reintubated due to hypoxia. Continue current management as outlined by transportation department supervisor. Sodium is improving. Continue current management monitor ABG and intermittent chest x-ray. [facility] updated. Patient sister also updated. 12/28: Sepsis persist. Antibiotics adjusted.-start linezolid 600 mg IV q 12 hour. Will adjust insulin for better management of blood glucose. 12/29: Shock still persist Levophed adjusted upward. [place] advised patient not safe for travel at this time. Continue ventilatory support continue full support antibiotics adjusted by ID. Follow cultures 12/30: Still on the vent and pressors , Isolation secondary MRSA In sputum. The high probability of a clinically significant, sudden or life threatening deterioration of the [renal, pulmonary] system(s) required my full and direct attention, intervention and personal management. The aggregate critical care time was [35] minutes. This time is in addition to time spent performing reported procedures but includes the following: [x] Data Review and interpretation [x] Patient assessment and monitoring of vital signs [x] Documentation [x] Medication orders and management History Interval history: Patient seen and examined, still on full ventilatory support, further hypotension requiring increasing Levophed Hospitalist Physical - Physical exam Narrative exam: GENERAL: well-developed obese white male lying on bed on restraints due to confusion and pulling. ETT HEENT: Normocephalic. Atraumatic. No conjunctival congestion or icterus. Patient has moist mucous membranes. ETT NECK: Supple. Trachea midline. CHEST/LUNGS: Coarse breath sound auscultated bilaterally, HEART/CARDIOVASCULAR: Regular in rate and rhythm. S1 and S2 positive. ABDOMEN: Abdomen is soft, nontender. Patient has normal bowel sounds. SKIN: There is no rash. Warm and dry. NEURO: follows some command, AMS, no focal deficits MUSCULOSKELETAL: No joint effusion or tenderness. EXTRIMITY: No edema, no cyanosis or clubbing. PSYCH: Sedated - Constitutional Vitals: Temp Pulse Resp BP Pulse Ox 98.4 F 82 24 101/60 94 12/31/19 12:00 12/31/19 13:36 12/31/19 13:36 12/31/19 13:00 12/31/19 13:00 General appearance: Present: severe distress HEART Score - HEART Score Troponin: Troponin T 0.011 ng/mL (0.00-0.029) 12/18/19 14:45 Results - Labs CBC & Chem 7: 12/30/19 05:06 12/31/19 10:00 Labs: Laboratory Last Values WBC 11.7 K/mm3 (4.5-11.0) H 12/30/19 05:06 RBC 3.91 M/mm3 (3.65-5.03) 12/30/19 05:06 Hgb 9.4 gm/dl (11.8-15.2) L 12/30/19 05:06 Hct 32.4 % (35.5-45.6) L 12/30/19 05:06 MCV 83 fl (84-94) L 12/30/19 05:06 MCH 24 pg (28-32) L 12/30/19 05:06 MCHC 29 % (32-34) L 12/30/19 05:06 RDW 20.2 % (13.2-15.2) H 12/30/19 05:06 Plt Count 191 K/mm3 (140-440) 12/30/19 05:06 Lymph % (Auto) 9.0 % (13.4-35.0) L 12/22/19 05:15 Granite % (Auto) 12.3 % (0.0-7.3) H 12/22/19 05:15 Eos % (Auto) 5.0 % (0.0-4.3) H 12/22/19 05:15 Baso % (Auto) 0.5 % (0.0-1.8) 12/22/19 05:15 Lymph # 0.5 K/mm3 (1.2-5.4) L 12/22/19 05:15 Granite # 0.7 K/mm3 (0.0-0.8) 12/22/19 05:15 Eos # 0.3 K/mm3 (0.0-0.4) 12/22/19 05:15 Baso # 0.0 K/mm3 (0.0-0.1) 12/22/19 05:15 Add Manual Diff Complete 12/24/19 04:53 Total Counted 100 12/24/19 04:53 Seg Neutrophils % 73.2 % (40.0-70.0) H 12/22/19 05:15 Seg Neuts % (Manual) 60.0 % (40.0-70.0) 12/24/19 04:53 Band Neutrophils % 0 % 12/24/19 04:53 Lymphocytes % (Manual) 20.0 % (13.4-35.0) 12/24/19 04:53 Reactive Lymphs % (Man) 0 % 12/24/19 04:53 Monocytes % (Manual) 15.0 % (0.0-7.3) H 12/24/19 04:53 Eosinophils % (Manual) 4.0 % (0.0-4.3) 12/24/19 04:53 Basophils % (Manual) 0 % (0.0-1.8) 12/24/19 04:53 Metamyelocytes % 1.0 % 12/24/19 04:53 Myelocytes % 0 % 12/24/19 04:53 Promyelocytes % 0 % 12/24/19 04:53 Blast Cells % 0 % 12/24/19 04:53 Nucleated RBC % Not Reportable 12/24/19 04:53 Seg Neutrophils # 4.4 K/mm3 (1.8-7.7) 12/22/19 05:15 Seg Neutrophils # Man 3.5 K/mm3 (1.8-7.7) 12/24/19 04:53 Band Neutrophils # 0.0 K/mm3 12/24/19 04:53 Lymphocytes # (Manual) 1.2 K/mm3 (1.2-5.4) 12/24/19 04:53 Abs React Lymphs (Man) 0.0 K/mm3 12/24/19 04:53 Monocytes # (Manual) 0.9 K/mm3 (0.0-0.8) H 12/24/19 04:53 Eosinophils # (Manual) 0.2 K/mm3 (0.0-0.4) 12/24/19 04:53 Basophils # (Manual) 0.0 K/mm3 (0.0-0.1) 12/24/19 04:53 Metamyelocytes # 0.1 K/mm3 12/24/19 04:53 Myelocytes # 0.0 K/mm3 12/24/19 04:53 Promyelocytes # 0.0 K/mm3 12/24/19 04:53 Blast Cells # 0.0 K/mm3 12/24/19 04:53 WBC Morphology Not Reportable 12/24/19 04:53 Hypersegmented Neuts Not Reportable 12/24/19 04:53 Hyposegmented Neuts Not Reportable 12/24/19 04:53 Hypogranular Neuts Not Reportable 12/24/19 04:53 Smudge Cells Not Reportable 12/24/19 04:53 Toxic Granulation Not Reportable 12/24/19 04:53 Toxic Vacuolation Not Reportable 12/24/19 04:53 Dohle Bodies Not Reportable 12/24/19 04:53 Pelger-Huet Anomaly Not Reportable 12/24/19 04:53 Mervin Rods Not Reportable 12/24/19 04:53 Platelet Estimate Consistent w auto 12/24/19 04:53 Clumped Platelets Not Reportable 12/24/19 04:53 Plt Clumps, EDTA Not Reportable 12/24/19 04:53 Large Platelets Not Reportable 12/24/19 04:53 Giant Platelets Not Reportable 12/24/19 04:53 Platelet Satelliting Not Reportable 12/24/19 04:53 Plt Morphology Comment Not Reportable 12/24/19 04:53 RBC Morphology Not Reportable 12/24/19 04:53 Dimorphic RBCs Not Reportable 12/24/19 04:53 Polychromasia Rare 12/24/19 04:53 Hypochromasia 1+ 12/24/19 04:53 Poikilocytosis Not Reportable 12/24/19 04:53 Anisocytosis 1+ 12/24/19 04:53 Microcytosis Few 12/24/19 04:53 Macrocytosis Not Reportable 12/24/19 04:53 Spherocytes Not Reportable 12/24/19 04:53 Pappenheimer Bodies Not Reportable 12/24/19 04:53 Sickle Cells Not Reportable 12/24/19 04:53 Target Cells Not Reportable 12/24/19 04:53 Tear Drop Cells Not Reportable 12/24/19 04:53 Ovalocytes Few 12/24/19 04:53 Helmet Cells Not Reportable 12/24/19 04:53 Brink-Woolstock Bodies Not Reportable 12/24/19 04:53 Hornitos Rings Not Reportable 12/24/19 04:53 Ileana Cells Not Reportable 12/24/19 04:53 Bite Cells Not Reportable 12/24/19 04:53 Crenated Cell Not Reportable 12/24/19 04:53 Elliptocytes Not Reportable 12/24/19 04:53 Acanthocytes (Spur) Not Reportable 12/24/19 04:53 Rouleaux Not Reportable 12/24/19 04:53 Hemoglobin C Crystals Not Reportable 12/24/19 04:53 Schistocytes Not Reportable 12/24/19 04:53 Malaria parasites Not Reportable 12/24/19 04:53 Gianni Bodies Not Reportable 12/24/19 04:53 Hem Pathologist Commnt No 12/24/19 04:53 PT 14.0 Sec. (12.2-14.9) 12/18/19 14:45 INR 1.10 (0.87-1.13) 12/18/19 14:45 APTT 29.4 Sec. (24.2-36.6) 12/18/19 14:45 D-Dimer 534.45 ng/mlDDU (0-234) H 12/18/19 14:45 ABG pH 7.325 pH Units (7.350-7.450) L 12/31/19 11:50 ABG pCO2 59.1 mm Hg 12/31/19 11:50 ABG pO2 97.2 mm Hg (80.0-90.0) H 12/31/19 11:50 ABG HCO3 30.1 mmol/L (20.0-26.0) H 12/31/19 11:50 ABG O2 Saturation 97.1 % (95.0-99.0) 12/31/19 11:50 ABG O2 Content 11.2 (0.0-44) 12/31/19 11:50 ABG Base Excess 3.4 mmol/L (-2.0-3.0) H 12/31/19 11:50 ABG Hemoglobin 8.3 gm/dl (14.0-18.0) L 12/31/19 11:50 ABG Carboxyhemoglobin 1.9 % (0.0-5.0) 12/31/19 11:50 ABG Methemoglobin 0.6 % (0.0-1.5) 12/31/19 11:50 Oxyhemoglobin 94.7 % (95.0-99.0) L 12/31/19 11:50 FiO2 75 % 12/31/19 11:50 Sodium 151 mmol/L (137-145) H D 12/31/19 10:00 Potassium 3.2 mmol/L (3.6-5.0) L 12/31/19 10:00 Chloride 113.0 mmol/L (98-107) H 12/31/19 10:00 Carbon Dioxide 28 mmol/L (22-30) 12/31/19 10:00 Anion Gap 13 mmol/L 12/31/19 10:00 BUN 23 mg/dL (9-20) H 12/31/19 10:00 Creatinine 1.8 mg/dL (0.8-1.5) H 12/31/19 10:00 Estimated GFR 47 ml/min 12/31/19 10:00 BUN/Creatinine Ratio 13 % 12/31/19 10:00 Glucose 373 mg/dL (75-100) H 12/31/19 10:00 POC Glucose 311 (70-105) H 12/31/19 13:33 Lactic Acid 1.70 mmol/L (0.7-2.0) 12/30/19 05:06 Calcium 8.9 mg/dL (8.4-10.2) 12/31/19 10:00 Phosphorus 3.70 mg/dL (2.5-4.5) 12/27/19 03:48 Magnesium 2.60 mg/dL (1.7-2.3) H 12/30/19 05:06 Ferritin 83.4 ng/mL (13.0-400.0) 12/18/19 14:45 Total Bilirubin 0.30 mg/dL (0.1-1.2) 12/19/19 04:13 AST 85 units/L (5-40) H 12/19/19 04:13 ALT 61 units/L (7-56) H 12/19/19 04:13 Alkaline Phosphatase 80 units/L (35-129) 12/19/19 04:13 Ammonia 39.0 umol/L (25-60) 12/18/19 14:45 Lactate Dehydrogenase 235 units/L (91-180) H 12/18/19 14:45 Lactate Dehydrogenase 236 units/L (91-180) H 12/18/19 14:45 Total Creatine Kinase 40 units/L (55-170) L 12/18/19 14:45 Troponin T 0.011 ng/mL (0.00-0.029) 12/18/19 14:45 C-Reactive Protein 8.40 mg/dL (0.00-1.30) H 12/18/19 14:45 C-Reactive Protein 8.50 mg/dL (0.00-1.30) H 12/18/19 14:45 Total Protein 6.8 g/dL (6.3-8.2) 12/19/19 04:13 Albumin 3.0 g/dL (3.9-5) L 12/19/19 04:13 Albumin/Globulin Ratio 0.8 % 12/19/19 04:13 Procalcitonin 0.22 ng/mL (<0.15) 12/18/19 14:45 TSH 2.300 mlU/mL (0.270-4.200) 12/18/19 14:45 Urine Color Yellow (Yellow) 12/19/19 16:50 Urine Turbidity Clear (Clear) 12/19/19 16:50 Urine pH 5.0 (5.0-7.0) 12/19/19 16:50 Ur Specific [place] 1.010 (1.003-1.030) 12/19/19 16:50 Urine Protein <15 mg/dl mg/dL (Negative) 12/19/19 16:50 Urine Glucose (UA) 150 mg/dL (Negative) 12/19/19 16:50 Urine Ketones Neg mg/dL (Negative) 12/19/19 16:50 Urine Blood Neg (Negative) 12/19/19 16:50 Urine Nitrite Neg (Negative) 12/19/19 16:50 Urine Bilirubin Neg (Negative) 12/19/19 16:50 Urine Urobilinogen < 2.0 mg/dL (<2.0) 12/19/19 16:50 Ur Leukocyte Esterase Tr (Negative) 12/19/19 16:50 Urine WBC (Auto) 7.0 /HPF (0.0-6.0) H 12/19/19 16:50 Urine RBC (Auto) 4.0 /HPF (0.0-6.0) 12/19/19 16:50 U Epithel Cells (Auto) 1.0 /HPF (0-13.0) 12/19/19 16:50 Urine Bacteria (Auto) 1+ /HPF (Negative) 12/19/19 16:50 Urine Mucus Few /HPF 12/19/19 16:50 Urine Osmolality 140 Mosm/kg 12/25/19 16:45 Urine Creatinine < 4.2 mg/dL (0.1-20.0) 12/25/19 16:45 Urine Sodium 10 mmol/L 12/25/19 16:45 Urine Total Protein < 4 mg/dL (5-11.8) L 12/25/19 16:45 Digoxin 0.3 ng/mL (0.9-2.0) L 12/18/19 14:45 Salicylates < 0.3 mg/dL (2.8-20.0) L 12/18/19 14:45 Acetaminophen < 5.0 ug/mL (10.0-30.0) L 12/18/19 14:45 Plasma/Serum Alcohol < 0.01 % (0-0.07) 12/18/19 14:45 Coronavirus (PCR) Negative (Negative) 12/21/19 14:45 Blood Type A POSITIVE 12/18/19 14:45 Antibody Screen Negative 12/18/19 14:45 Microbiology: Microbiology 12/29/19 15:41 Peripheral/Venous Blood Culture - Preliminary NO GROWTH AFTER 24 HOURS 12/29/19 15:44 Peripheral/Venous Blood Culture - Preliminary NO GROWTH AFTER 24 HOURS 12/29/19 13:03 Peripheral/Venous Blood Culture - Preliminary NO GROWTH AFTER 24 HOURS 12/29/19 13:42 Peripheral/Venous Blood Culture - Preliminary NO GROWTH AFTER 24 HOURS - Diagnostic Impressions Diagnostic Impressions: Echocardiogram 12/28/19 14:07 Transthoracic Echocardiogram Indication: SOB BP: 95/51 HR: 99 Conclusions *The left ventricular chamber size is mildly dilated. *There is no left ventricular hypertrophy. *Global left ventricular systolic function is mildly decreased. *The estimated ejection fraction is 45-50%. *Abnormal left ventricular diastolic filling is observed, consistent with impaired relaxation. *The right ventricular global systolic function is mildly reduced. *The right ventricular systolic pressure is calculated at 53 mmHg. Findings Left Ventricle: The left ventricular chamber size is mildly dilated. There is no left ventricular hypertrophy. Global left ventricular systolic function is mildly decreased. The estimated ejection fraction is 45-50%. Abnormal left ventricular diastolic filling is observed, consistent with impaired relaxation. Left Atrium: The left atrial chamber size is normal. Right Ventricle: The right ventricular cavity size is normal. The right ventricular global systolic function is mildly reduced. Right Atrium: The right atrial cavity size is normal. Aortic Valve: The aortic valve leaflets are mildly thickened. There is no evidence of aortic regurgitation. Mitral Valve: The mitral valve leaflets are mildly thickened. There is no evidence of mitral regurgitation. Tricuspid Valve: The tricuspid valve leaflets are normal. There is mild tricuspid regurgitation. The right ventricular systolic pressure is calculated at 53 mmHg. Pulmonic Valve: The pulmonic valve appears normal. There is trace pulmonic regurgitation. Pericardium: There is no pericardial effusion. Aorta: The aorta appears normal. Venous: The inferior vena cava is dilated. Measurements Chambers 2D Name Value Normal Range IVSd (2D) 1.08 cm (0.6 - 1.1) LVPWd (2D) 1 cm (0.6 - 1.1) LVIDd (2D) 4.67 cm (3.7 - 5.6) LVIDs (2D) 3.89 cm (2 - 3.8) LV FS (2D) 16.76 % - EF Teichholz (2D) 35.14 % - Ao root diameter (2D) 2.86 cm (2 - 3.7) Volumes/Mass Name Value Normal Range LA ESV SP 4CH (A/L) 31.8 ml - LA ESV SP 2CH (A/L) 27.37 ml - LA ESV BP (A/L) 33.43 ml - LA ESV BP (A/L) index 14.11 ml/m2 - LA ESV SP 4CH (MOD) 26.83 ml - LA ESV SP 2CH (MOD) 29.59 ml - LA ESV BP (MOD) 30.47 ml - LA ESV BP (MOD) index 12.86 ml/m2 - Diastolic/Systolic Function Name Value Normal Range MV E-wave Vmax 0.39 m/sec - MV deceleration time 115.69 msec - MV A-wave Vmax 0.63 m/sec - MV E:A ratio 0.62 ratio - Aortic Valve Name Value Normal Range AV Vmax 1.14 m/sec - AV VTI 20.1 cm - AV peak gradient 5.17 mmHg - AV mean gradient 3.89 mmHg - LVOT diameter 2.02 cm - LVOT Vmax 0.99 m/sec - LVOT VTI 16.45 cm - LVOT peak gradient 3.95 mmHg - LVOT mean gradient 2.45 mmHg - SV LVOT 52.45 ml - RALPH (continuity Vmax) 2.78 cm2 - RALPH (continuity VTI) 2.61 cm2 - Tricuspid Valve Name Value Normal Range TR Vmax 3.36 m/sec - TR peak gradient 45 mmHg - RAP 8 mmHg - RVSP 53 mmHg - IVC diameter 2.33 cm (1.2 - 2.3) Pulmonic Valve/Qp:Qs Name Value Normal Range PV Vmax 0.89 m/sec - PV peak gradient 3.16 mmHg - TX end-diastolic Vmax 1.42 m/sec - PV acceleration time 79.92 msec - Sykes/IV: Voiding Method Condom Catheter IV Catheter Type [Right Upper PICC Line arm] IV Catheter Type [Right Leg] Intra-osseous IV Catheter Type [Right Wrist] Peripheral IV IV Catheter Type [Right Hand] INT / Saline Lock IV Catheter Type [Left Hand] INT / Saline Lock IV Catheter Type [Left Forearm INT / Saline Lock ] IV Catheter Type [Left Triple Lumen Cath Internal Jugular] Active Medications - Current Medications Current Medications: Generic Name Dose Route Start Last Admin Trade Name Freq PRN Reason Stop Dose Admin Acetaminophen 650 mg 12/29/19 09:21 12/29/19 09:26 Tylenol PO 650 mg Q4H PRN Administration Non Cardiac Pain or Temp>100.5 Albuterol/Ipratropium 1 ampul 12/18/19 14:00 12/31/19 13:36 Duoneb *Not For Prn Use* IH 1 ampul TIDRT SHANEL Administration Lipase/Protease/Amylase 1 each 12/19/19 08:29 Pancrecorry Cabrera 10,500 Unit FEEDTUBE PRN PRN For Clogged Feeding Tube Aspirin 81 mg 12/19/19 10:00 12/31/19 09:36 Baby Aspirin PO 81 mg DAILY SHANEL Administration Famotidine 20 mg 12/20/19 10:00 12/31/19 09:36 Pepcid PO 20 mg BID SHANEL Administration Fentanyl 50 mcg 12/27/19 16:57 Sublimaze IV Q10MIN PRN ANALGESIA Folic Acid 1 mg 12/19/19 10:00 12/31/19 09:36 Folvite PO 1 mg DAILY SHANEL Administration Heparin Sodium (Porcine) 5,000 unit 12/18/19 22:00 12/31/19 09:36 Heparin SUB-Q 5,000 unit Q12HR SHANEL Administration Hydrophilic Ointment 1 applic 12/18/19 12:35 Vaseline Lip Therapy TP Q2HR PRN Dry Lips Fentanyl Citrate 2,000 mcg in 100 mls @ 5.85 mls/hr 12/27/19 17:00 12/30/19 21:55 Fentanyl Drip Premix IV 1 mcg/kg/hr TITR SHANEL 5.85 mls/hr Administration Protocol 1 MCG/KG/HR Norepinephrine 4 mg in 250 mls @ 7.5 mls/hr 12/28/19 15:00 12/31/19 11:20 Levophed Drip 4 Mg/Ns 250 Ml IV 6 mcg/min TITR SHANEL 22.5 mls/hr Titration Protocol 2 MCG/MIN Linezolid 600 mg in 300 mls @ 300 mls/hr 12/29/19 15:00 12/31/19 09:36 Zyvox 600mg/300ml IV 300 mls/hr Q12HR SHANEL Administration Protocol Vasopressin 20 unit/ Sodium 101 mls @ 9.09 mls/hr 12/30/19 12:30 12/31/19 07:55 Chloride IV 0.03 units/min TITR SHANEL 9.09 mls/hr Administration Protocol 0.03 UNITS/MIN Cefepime HCl 2 gm in 100 mls @ 200 mls/hr 12/30/19 18:00 12/31/19 07:02 Cefepime/Ns 2 Gm/100 Ml IV 200 mls/hr Q12H SHANEL Administration Protocol Fluconazole 200 mg in 100 mls @ 100 mls/hr 12/30/19 18:00 12/30/19 17:36 Diflucan IV 100 mls/hr Q24H SHANEL Administration Protocol Lactated Ringer's 1,000 mls @ 150 mls/hr 12/31/19 12:00 12/31/19 11:45 Lactated Ringers IV 12/31/19 18:39 150 mls/hr DIRECT SHANEL Administration Insulin Glargine 30 units 12/31/19 22:00 Lantus SUB-Q QHS SHANEL Insulin Glargine 30 units 12/31/19 10:00 12/31/19 09:36 Lantus SUB-Q 30 units QAMDIAB SHANEL Administration Insulin Human Lispro 0 unit 12/31/19 14:00 12/31/19 13:21 Humalog SUB-Q 8 unit Q4HR SHANEL Administration Protocol Levothyroxine Sodium 88 mcg 12/19/19 06:00 12/31/19 06:41 Synthroid PO 88 mcg QAM@0600 SHANEL Administration Multi-Ingred Cream/Lotion/Oil/Oint 1 applic 12/18/19 12:35 Artificial Tears Ophth Oint OU Q4HR PRN Dry Eye(s) Potassium Chloride 40 meq 12/29/19 10:00 12/31/19 11:05 Potassium Chloride FEEDTUBE 40 meq QDAY SHANEL Administration Simple Syrup 15 ml 12/19/19 08:29 Simple Syrup FEEDTUBE PRN PRN Hypoglycemia Simple Syrup 30 ml 12/19/19 08:29 Simple Syrup FEEDTUBE PRN PRN Hypoglycemia Sodium Bicarbonate 325 mg 12/19/19 08:29 Sodium Bicarbonate FEEDTUBE PRN PRN For Clogged Feeding Tube Sodium Chloride 10 ml 12/18/19 22:00 12/31/19 09:37 Sodium Chloride Flush Syringe 10 Ml IV 10 ml BID SHANEL Administration Sodium Chloride 10 ml 12/18/19 13:31 Sodium Chloride Flush Syringe 10 Ml IV PRN PRN LINE FLUSH Nutrition/Malnutrition Assess - Dietary Evaluation Nutrition/Malnutrition Findings: Nutrition Notes Start: 12/19/19 08:16 Freq: Status: Active Protocol: Document 12/30/19 12:15 LM (Rec: 12/30/19 12:19 LM [email or web address]) Nutrition Notes Initial or Follow up Reassessment Current Diagnosis Diabetes,Sepsis,Hypertension, Heart Failure,Respiratory Failure Other Pertinent Diagnosis Suspected COVID-19, pneu Current Diet Vital AF 1.2 at 65ml/hr Labs/Tests Na 159 K 3.2 Cr 1.9 POC glu 399 Pertinent Medications Levophed Humalog Height 6 ft 2 in Weight 117 kg [place] Body Weight (kg) 86.36 BMI 33.1 Subjective/Other Information Pt tolerating TF. Percent of energy/protein needs met: 94%/68% Burn Absent Trauma Absent Current % PO Negligible Minimum of two criteria No physical signs of malnutrition #1 Nutrition Diagnosis Inadequate oral intake Diagnosis Progress(for reassessment Continues documentation) Is patient on ventilator? Yes Is Patient Ambulatory and/or Out of Bed No REE-([place]-confined to bed) 2469.960 Kcal/Kg value to use for calculation 17 Approximate Energy Requirements Using 1989 kcal/Kg Calculation Used for Recommendations Kcal/kg Additional Notes Protein: 172g (>/=2g/kg using IBW 86kg) Fluid 1ml/kcal Nutrition Intervention Change Diet Order: TF Nutrition Support: Vital AF 1.2 at 65ml/hr Flush 300ml q4h for hypernatremia Flush 100ml q4h once resolved Kcal 1,872 Protein (gm) 117 Fluid (mL) 1,265 Goal #1 TF tolerance Goal #2 Meet at least 75% of energy and protein needs Anticipated Discharge Needs: unable to determine at this time Follow-Up By: 01/04/20 Additional Comments F/U for TF tolerance
--- NOTE | 2019-12-31 14:04 | Progress Note ---
Assessment and Plan Cultures: Blood culture 12/18/2019 no growth today Urine culture 12/19/2019 no growth today Sputum culture 12/18/2019 no growth today Sputum culture 12/27/2019 MRSA Blood culture 12/18/2019 no growth today A/P: 59-year-old male past medical history diastolic CHF, OHS, HTN, DM 2, hypothyroidism #Sepsis with septic shock: now with fever 102.8 and pressors, source ? possible MRSA pneumonia, worsening on 2 pressors today #MRSA pneumonia: sputum 12/26 +MRSA #Acute hypoxic respiratory failure: remains intubated Fio2 45,p8. CXR with increased interstitial consolidation and effusions #Diabetes: Tight glycemic control. #Multiple chronic comorbidities #JAGDEEP: creat is up #CHF Recs: -f/u blood culture -continue cefepime and fluconazole -day 2 -continue linezolid 600 mg IV q 12 hour - day3 -monitor creatinine guarded prognosis will follow Nellie Felton MD [facility] ([facility]) Office [phone] Subjective Date of service: 12/31/19 Principal diagnosis: Ac. Hypoxemic Resp Failure; Septic Shock; Keiry. PNA; PUI COVID-19; CHF; JOE Interval history: Patient remains critically ill intubated, no fever, remains on 2 pressors now. Objective - Exam Narrative Exam: Constitutional: intubated sedated Head, Ears, Nose: Normocephalic, atraumatic. Eyes: Conjunctivae/corneas clear. No icterus. No ptosis. Oral: +ETT Cardiovascular: S1, S2 normal. Respiratory: Good air entry, clear to auscultation bilaterally GI: Soft, distended non-tender; bowel sounds normal. No peritoneal signs. Musculoskeletal:keiry leg edema Skin:groin irritation Hem/Lymphatic: No palpable cervical or supraclavicular nodes. No lymphangitis Neurological: sedated - Constitutional Vitals: Vital Signs Temp Pulse Resp BP Pulse Ox 98.4 F 82 24 101/60 94 12/31/19 12:00 12/31/19 13:36 12/31/19 13:36 12/31/19 13:00 12/31/19 13:00 Temperature -Last 24 Hours Temperature 98.4 F Temperature 98.4 F Temperature 98.5 F Temperature 99.0 F Temperature 99.3 F Temperature 99.7 F - Labs CBC & Chem 7: 12/30/19 05:06 12/31/19 10:00 Labs: Abnormal lab results 12/30/19 12/30/19 12/30/19 Range/Units 16:32 18:05 21:42 ABG pH (7.350-7.450) pH Units ABG pO2 (80.0-90.0) mm Hg ABG HCO3 (20.0-26.0) mmol/L ABG O2 Saturation (95.0-99.0) % ABG Base Excess (-2.0-3.0) mmol/L ABG Hemoglobin (14.0-18.0) gm/dl Oxyhemoglobin (95.0-99.0) % Sodium (137-145) mmol/L Potassium (3.6-5.0) mmol/L Chloride (98-107) mmol/L BUN (9-20) mg/dL Creatinine (0.8-1.5) mg/dL Glucose (75-100) mg/dL POC Glucose 445 H 429 H 371 H (70-105) 12/30/19 12/31/19 12/31/19 Range/Units Unknown 00:00 04:31 ABG pH 7.251 L (7.350-7.450) pH Units ABG pO2 62.4 L (80.0-90.0) mm Hg ABG HCO3 31.1 H (20.0-26.0) mmol/L ABG O2 Saturation 88.7 L (95.0-99.0) % ABG Base Excess (-2.0-3.0) mmol/L ABG Hemoglobin 8.7 L (14.0-18.0) gm/dl Oxyhemoglobin 86.4 L (95.0-99.0) % Sodium (137-145) mmol/L Potassium (3.6-5.0) mmol/L Chloride (98-107) mmol/L BUN (9-20) mg/dL Creatinine (0.8-1.5) mg/dL Glucose 498 H (75-100) mg/dL POC Glucose 452 H (70-105) 12/31/19 12/31/19 12/31/19 Range/Units 05:42 08:01 09:08 ABG pH (7.350-7.450) pH Units ABG pO2 (80.0-90.0) mm Hg ABG HCO3 (20.0-26.0) mmol/L ABG O2 Saturation (95.0-99.0) % ABG Base Excess (-2.0-3.0) mmol/L ABG Hemoglobin (14.0-18.0) gm/dl Oxyhemoglobin (95.0-99.0) % Sodium (137-145) mmol/L Potassium (3.6-5.0) mmol/L Chloride (98-107) mmol/L BUN (9-20) mg/dL Creatinine (0.8-1.5) mg/dL Glucose (75-100) mg/dL POC Glucose 443 H 443 H 465 H (70-105) 12/31/19 12/31/19 12/31/19 Range/Units 10:00 11:50 12:25 ABG pH 7.325 L (7.350-7.450) pH Units ABG pO2 97.2 H (80.0-90.0) mm Hg ABG HCO3 30.1 H (20.0-26.0) mmol/L ABG O2 Saturation (95.0-99.0) % ABG Base Excess 3.4 H (-2.0-3.0) mmol/L ABG Hemoglobin 8.3 L (14.0-18.0) gm/dl Oxyhemoglobin 94.7 L (95.0-99.0) % Sodium 151 H D (137-145) mmol/L Potassium 3.2 L (3.6-5.0) mmol/L Chloride 113.0 H (98-107) mmol/L BUN 23 H (9-20) mg/dL Creatinine 1.8 H (0.8-1.5) mg/dL Glucose 373 H (75-100) mg/dL POC Glucose 379 H (70-105) 12/31/19 Range/Units 13:33 ABG pH (7.350-7.450) pH Units ABG pO2 (80.0-90.0) mm Hg ABG HCO3 (20.0-26.0) mmol/L ABG O2 Saturation (95.0-99.0) % ABG Base Excess (-2.0-3.0) mmol/L ABG Hemoglobin (14.0-18.0) gm/dl Oxyhemoglobin (95.0-99.0) % Sodium (137-145) mmol/L Potassium (3.6-5.0) mmol/L Chloride (98-107) mmol/L BUN (9-20) mg/dL Creatinine (0.8-1.5) mg/dL Glucose (75-100) mg/dL POC Glucose 311 H (70-105)
--- NOTE | 2019-12-31 15:19 | Progress Note ---
Assessment and Plan - Patient Problems (1) Acute kidney injury Current Visit: Yes Status: Acute Plan to address problem: Will monitor closely. Concerned for worsening pre-renal injury in setting of sepsis and hemodynamic instability and now with increasing pressor requirements. Avoid nephrotoxins, maintain MAP >65 mmHg. (2) Acute respiratory failure Current Visit: Yes Status: Acute Qualifiers: Plan to address problem: Now re-intubated. Chest xray reviewed. Management on vent per Pulmonary/ICU. (3) Hypernatremia Current Visit: Yes Status: Acute Plan to address problem: Increased FWF to 300 cc q 4hrs. . (4) Diastolic CHF Current Visit: Yes Status: Acute Qualifiers: Heart failure chronicity: acute on chronic Qualified Code(s): I50.33 - Acute on chronic diastolic (congestive) heart failure Plan to address problem: Chest Xray is concerning for volume overload. IVF has been stopped at this time. (5) Hypokalemia Current Visit: Yes Status: Acute Plan to address problem: replete per protocol. Place on 40meq daily via NG tube. (6) Pneumonia Current Visit: No Status: Acute Qualifiers: Pneumonia type: due to unspecified organism Laterality: left Lung location: unspecified part of lung Qualified Code(s): J18.9 - Pneumonia, unspecified organism Plan to address problem: Management per primary/ICU team. Subjective Date of service: 12/31/19 Principal diagnosis: Ac. Hypoxemic Resp Failure; Septic Shock; Magdiel. PNA; PUI COVID-19; CHF; JOE Interval history: Remains intubated, on pressor support. Afebrile. Renal function has been stable. Objective - Vital Signs Vital signs: Vital Signs - 12hr 12/31/19 12/31/19 12/31/19 03:30 04:00 04:27 Temperature 98.5 F Pulse Rate 82 81 78 Pulse Rate [ Bilateral] Pulse Rate [ 87 From Monitor] Respiratory 20 Rate Respiratory Rate [Bilateral ] Blood Pressure 100/56 104/58 93/57 O2 Sat by Pulse 91 92 94 Oximetry 12/31/19 12/31/19 12/31/19 04:30 05:00 05:30 Temperature Pulse Rate 76 81 80 Pulse Rate [ Bilateral] Pulse Rate [ From Monitor] Respiratory Rate Respiratory Rate [Bilateral ] Blood Pressure 105/59 110/57 102/59 O2 Sat by Pulse 91 94 93 Oximetry 12/31/19 12/31/19 12/31/19 06:00 06:30 07:00 Temperature Pulse Rate 76 77 75 Pulse Rate [ Bilateral] Pulse Rate [ From Monitor] Respiratory Rate Respiratory Rate [Bilateral ] Blood Pressure 104/59 101/57 106/61 O2 Sat by Pulse 94 94 Oximetry 12/31/19 12/31/19 12/31/19 07:30 08:00 08:21 Temperature 98.4 F Pulse Rate 76 80 73 Pulse Rate [ 75 Bilateral] Pulse Rate [ 80 From Monitor] Respiratory 24 Rate Respiratory 24 Rate [Bilateral ] Blood Pressure 105/60 100/67 110/61 O2 Sat by Pulse 96 95 91 Oximetry 12/31/19 12/31/19 12/31/19 08:30 09:00 09:30 Temperature Pulse Rate 85 81 81 Pulse Rate [ Bilateral] Pulse Rate [ From Monitor] Respiratory 18 24 24 Rate Respiratory Rate [Bilateral ] Blood Pressure 110/71 105/57 93/52 O2 Sat by Pulse 94 95 95 Oximetry 12/31/19 12/31/19 12/31/19 10:00 10:30 11:00 Temperature Pulse Rate 79 77 75 Pulse Rate [ Bilateral] Pulse Rate [ From Monitor] Respiratory 24 24 24 Rate Respiratory Rate [Bilateral ] Blood Pressure 104/55 102/59 107/60 O2 Sat by Pulse 97 96 96 Oximetry 12/31/19 12/31/19 12/31/19 11:30 12:00 12:30 Temperature 98.4 F Pulse Rate 79 75 78 Pulse Rate [ Bilateral] Pulse Rate [ 80 From Monitor] Respiratory 24 24 24 Rate Respiratory Rate [Bilateral ] Blood Pressure 103/58 94/56 95/59 O2 Sat by Pulse 97 96 95 Oximetry 12/31/19 12/31/19 12/31/19 13:00 13:30 13:36 Temperature Pulse Rate 70 76 Pulse Rate [ 82 Bilateral] Pulse Rate [ From Monitor] Respiratory 24 24 Rate Respiratory 24 Rate [Bilateral ] Blood Pressure 101/60 94/56 O2 Sat by Pulse 94 94 Oximetry 12/31/19 12/31/19 12/31/19 14:00 14:30 15:00 Temperature Pulse Rate 70 78 76 Pulse Rate [ Bilateral] Pulse Rate [ From Monitor] Respiratory 24 23 24 Rate Respiratory Rate [Bilateral ] Blood Pressure 99/59 104/61 100/60 O2 Sat by Pulse 92 94 93 Oximetry - General Appearance General appearance: sedated on ventilator, intubated EENT: ATNC Neck: no JVD, no thyromegaly Respiratory: Present: Decreased Breath Sounds Cardiology: regular, S1S2 Gastrointestinal: normal Integumentary: no rash Musculoskeletal: deferred - Lab 12/30/19 05:06 12/31/19 10:00 Most recent lab results ABG pH 7.325 pH Units (7.350-7.450) L 12/31/19 11:50 ABG pCO2 59.1 mm Hg 12/31/19 11:50 ABG pO2 97.2 mm Hg (80.0-90.0) H 12/31/19 11:50 ABG HCO3 30.1 mmol/L (20.0-26.0) H 12/31/19 11:50 ABG O2 Saturation 97.1 % (95.0-99.0) 12/31/19 11:50 Calcium 8.9 mg/dL (8.4-10.2) 12/31/19 10:00 Phosphorus 3.70 mg/dL (2.5-4.5) 12/27/19 03:48 Magnesium 2.60 mg/dL (1.7-2.3) H 12/30/19 05:06 Urine Creatinine < 4.2 mg/dL (0.1-20.0) 12/25/19 16:45 Urine Sodium 10 mmol/L 12/25/19 16:45 Urine Total Protein < 4 mg/dL (5-11.8) L 12/25/19 16:45 - Allied health notes Allied health notes reviewed: nursing Medications & Allergies - Medications Allergies/Adverse Reactions: Allergies No Known Allergies Allergy (Unverified 12/19/19 01:31) Home Medications: Home Medications Medication Instructions Recorded Confirmed Last Taken Type Ipratropium/Albuterol Sulfate 1 ampul IH TIDRT #90 ampul.neb 06/02/19 12/28/19 Unknown Rx [DUONEB *Not for PRN Use*] Aspirin [Aspirin BABY CHEW TAB] 81 mg PO DAILY 06/03/19 12/28/19 3 Days Ago History ~05/31/19 Desmopressin [Ddavp] 0.2 mg PO BID 06/03/19 12/28/19 3 Days Ago History ~05/31/19 Digoxin [Lanoxin] 0.125 mg PO DAILY 06/03/19 12/28/19 3 Days Ago History ~05/31/19 Folic Acid 100 mg PO DAILY 06/03/19 12/28/19 3 Days Ago History ~05/31/19 Furosemide [Lasix TAB] 40 mg PO QDAY 06/03/19 12/28/19 3 Days Ago History ~05/31/19 Insulin Lispro [Humalog 100 4 units SQ AC 06/03/19 12/28/19 3 Days Ago History UNITS/ML Kwikpen] ~05/31/19 Levothyroxine [Synthroid] 88 mcg PO QAM 06/03/19 12/28/19 3 Days Ago History ~05/31/19 Metformin HCl [metFORMIN] 1,000 mg PO BID 06/03/19 12/28/19 3 Days Ago History ~05/31/19 Potassium Chloride [K-Dur] 20 meq PO QDAY 06/03/19 12/28/19 3 Days Ago History ~05/31/19 carvediloL [Coreg] 6.25 mg PO BID 06/03/19 12/28/19 3 Days Ago History ~05/31/19 Famotidine [Pepcid] 20 mg PO QDAY #30 tablet 06/06/19 12/28/19 Unknown Rx Insulin NPH/Regular [NovoLIN 70/30] 50 unit SUB-Q BIDDIAB #100 units 06/06/19 12/28/19 Unknown Rx Active Medications: Generic Name Dose Route Start Last Admin Trade Name Freq PRN Reason Stop Dose Admin Acetaminophen 650 mg 12/29/19 09:21 12/29/19 09:26 Tylenol PO 650 mg Q4H PRN Administration Non Cardiac Pain or Temp>100.5 Albuterol/Ipratropium 1 ampul 12/18/19 14:00 12/31/19 13:36 Duoneb *Not For Prn Use* IH 1 ampul TIDRT SHANEL Administration Lipase/Protease/Amylase 1 each 12/19/19 08:29 Erendira Cabrera 10,500 Unit FEEDTUBE PRN PRN For Clogged Feeding Tube Aspirin 81 mg 12/19/19 10:00 12/31/19 09:36 Baby Aspirin PO 81 mg DAILY SHANEL Administration Famotidine 20 mg 12/20/19 10:00 12/31/19 09:36 Pepcid PO 20 mg BID SHANEL Administration Fentanyl 50 mcg 12/27/19 16:57 Sublimaze IV Q10MIN PRN ANALGESIA Folic Acid 1 mg 12/19/19 10:00 12/31/19 09:36 Folvite PO 1 mg DAILY SHANEL Administration Heparin Sodium (Porcine) 5,000 unit 12/18/19 22:00 12/31/19 09:36 Heparin SUB-Q 5,000 unit Q12HR SHANEL Administration Hydrophilic Ointment 1 applic 12/18/19 12:35 Vaseline Lip Therapy TP Q2HR PRN Dry Lips Fentanyl Citrate 2,000 mcg in 100 mls @ 5.85 mls/hr 12/27/19 17:00 12/30/19 21:55 Fentanyl Drip Premix IV 1 mcg/kg/hr TITR SHANEL 5.85 mls/hr Administration Protocol 1 MCG/KG/HR Norepinephrine 4 mg in 250 mls @ 7.5 mls/hr 12/28/19 15:00 12/31/19 14:40 Levophed Drip 4 Mg/Ns 250 Ml IV 4 mcg/min TITR SHANEL 15 mls/hr Titration Protocol 2 MCG/MIN Linezolid 600 mg in 300 mls @ 300 mls/hr 12/29/19 15:00 12/31/19 09:36 Zyvox 600mg/300ml IV 300 mls/hr Q12HR SHANEL Administration Protocol Vasopressin 20 unit/ Sodium 101 mls @ 9.09 mls/hr 12/30/19 12:30 12/31/19 07:55 Chloride IV 0.03 units/min TITR SHANEL 9.09 mls/hr Administration Protocol 0.03 UNITS/MIN Cefepime HCl 2 gm in 100 mls @ 200 mls/hr 12/30/19 18:00 12/31/19 07:02 Cefepime/Ns 2 Gm/100 Ml IV 200 mls/hr Q12H SHANEL Administration Protocol Fluconazole 200 mg in 100 mls @ 100 mls/hr 12/30/19 18:00 12/30/19 17:36 Diflucan IV 100 mls/hr Q24H SHANEL Administration Protocol Lactated Ringer's 1,000 mls @ 150 mls/hr 12/31/19 12:00 12/31/19 11:45 Lactated Ringers IV 12/31/19 18:39 150 mls/hr DIRECT SHANEL Administration Insulin Glargine 30 units 12/31/19 22:00 Lantus SUB-Q QHS SHANEL Insulin Glargine 30 units 12/31/19 10:00 12/31/19 09:36 Lantus SUB-Q 30 units QAMDIAB SHANEL Administration Insulin Human Lispro 0 unit 12/31/19 14:00 12/31/19 13:21 Humalog SUB-Q 8 unit Q4HR SHANEL Administration Protocol Levothyroxine Sodium 88 mcg 12/19/19 06:00 12/31/19 06:41 Synthroid PO 88 mcg QAM@0600 SHANEL Administration Multi-Ingred Cream/Lotion/Oil/Oint 1 applic 12/18/19 12:35 Artificial Tears Ophth Oint OU Q4HR PRN Dry Eye(s) Potassium Chloride 40 meq 12/29/19 10:00 12/31/19 11:05 Potassium Chloride FEEDTUBE 40 meq QDAY SHANEL Administration Simple Syrup 15 ml 12/19/19 08:29 Simple Syrup FEEDTUBE PRN PRN Hypoglycemia Simple Syrup 30 ml 12/19/19 08:29 Simple Syrup FEEDTUBE PRN PRN Hypoglycemia Sodium Bicarbonate 325 mg 12/19/19 08:29 Sodium Bicarbonate FEEDTUBE PRN PRN For Clogged Feeding Tube Sodium Chloride 10 ml 12/18/19 22:00 12/31/19 09:37 Sodium Chloride Flush Syringe 10 Ml IV 10 ml BID SHANEL Administration Sodium Chloride 10 ml 12/18/19 13:31 Sodium Chloride Flush Syringe 10 Ml IV PRN PRN LINE FLUSH
[2019-12-31] MEDS: fentaNYL DRIP Premix 2,000 MCG/100 ML BAG IV SCH (15:34)
[2019-12-31] MEDS: DOPamine/D5W 800 MG/250 ML 800 MG/250 ML BAG IV SCH (16:51)
[2019-12-31] MEDS ORDERED: POTASSIUM CHLORIDE 20 MEQ PACKET FEEDTUBE ONE (17:45)
[2019-12-31] MEDS: FLUCONAZOLE 200 MG 200 MG/100 ML BAG IV SCH (17:47)
[2019-12-31] MEDS ORDERED: INSULIN GLARGINE 100 UNITS/ML SUB-Q SCH (22:00)
[2020-01-01] MEDS: INSULIN LISPRO 100 UNIT/ML SUB-Q SCH ×6 (02:50→22:40)
[2020-01-01 05:34] LABS: ABG Base Excess 3.8 mmol/L (-2.0-3.0); ABG HCO3 29.1 mmol/L (20.0-26.0); ABG PCO2 48.4 mm Hg; ABG PH 7.397 pH Units (7.350-7.450); ABG PO2 90.7 mm Hg (80.0-90.0)
[2020-01-01] MEDS: LEVOTHYROXINE 88 MCG TAB PO SCH (06:48)
[2020-01-01] MEDS: CEFEPIME/NS 2 GM/100 ML 2 GM/100 ML BAG IV SCH ×2 (06:48→17:00)
[2020-01-01] MEDS: VASOPRESSIN 20 UNIT in SODIUM CHLORIDE 0.9% 100 ML IV SCH (06:49)
[2020-01-01] MEDS: IPRATROPIUM/ALBUTEROL SULFATE 3 ML AMPUL.NEB IH SCH ×3 (07:23→21:21)
[2020-01-01] MEDS: fentaNYL DRIP Premix 2,000 MCG/100 ML BAG IV SCH ×2 (07:53→18:44)
--- NOTE | 2020-01-01 10:05 | Progress Note ---
Assessment and Plan Assessment and plan: 59-year-old male past medical history diastolic CHF, OHS, HTN, DM 2, hypothyroidism admitted with confusion after being found by a neighbor. On arrival patient was found to be lethargic, and in respiratory distress and hypoxic. Patient was intubated in the ER because of hypoxic respiratory failure. Also noted to be hypotensive, placed on pressor admitted to ICU. Patient is negative for COVID-19, being treated for bilateral pneumonia. JAGDEEP improved with IV fluid, ID and critical care following. Chest x-ray: Left lower lobe airspace disease CT chest: 1. Patchy bilateral nodular and consolidative airspace opacities which are nonspecific but likely related to the reported history of Covid. 2. Multiple enlarged partially visualized left supraclavicular and lower cervical chain lymph nodes. While these are nonspecific and may be reactive, a neoplastic process is possible, recommend short interval follow-up after patient recovers from the acute episode. / Acute hypoxic respiratory failure Likely from bilateral pneumonia and diastolic heart failure Patient intubated, placed on ventilatory support. critical care team consulted in ED. Patient is extubated, continue nebulizer breathing treatment and as needed biPAP We will also do a swallow eval / Sepsis with shock cont IV antibiotic therapy, IV fluid resuscitation therapy, monitor urine output every shift, maintain mean arterial blood pressure greater than or equal to 65, s/p IV pressor support. / Suspected 2019-nCoV infection -ruled out with 2 negative test / Diastolic CHF Preserved EF based on prior echocardiogram Monitor weight strict I's/O, daily weight, monitor urine output every shift, submental oxygen, blood pressure control. /JAGDEEP, due to vasomotor nephropathy, present on admission -Creatinine improving, continue IV fluid -Likely due to severe sepsis and hypotension /hypernatremia, -due to dehydration and sepsis -change fluid to D5W - monitor BMP /Hypokalemia, replete / Diabetes type II Initiate tube feeding diet Sliding scale insulin, Accu-Chek, hypoglycemia protocol. / Hypothyroidism Synthroid therapy, supportive care. / Bilateral pneumonia Pneumonia protocol: IV antibiotic therapy with rocephin for total 7 days, pulse oximetry, /Cervical lymphadenopathy -Reactive versus infectious process versus malignancy -Need repeat scanning and further staging when medically more stable -Pulmonology and ID following / HTN (hypertension) -hold BP meds as patient is hypotensive Monitor blood pressure every shift, continue medical management. /History of obstructive sleep apnea -Patient currently on mechanical ventilation /Acute metabolic encephalopathy Secondary to hyponatremia. /Urinary retention, suspected in the ER -Patient having good urine output now, will hold any CT scan -Continue IV fluid / DVT prophylaxis SCD to bilateral lower extremities while in bed, prophylactic heparin 12/19/19: Negative for COVID-19, continue pressor and wean off as tolerated, con tinue IV antibiotic and follow cultures. 12/19: Weaned off from pressor, sodium 156>157>153 today, creatinine 1.4>1.2>1.0. Continue IV fluid. Wean off from vent as tolerated. Follow ID recommendation 12/20: Extubated today, continue to monitor in the ICU overnight if clinically stable with transfer out to [facility]/telemetry tomorrow a.m.. Sodium 149 today, continue IV fluid and monitor BMP. Swallow eval, PT OT eval. 2nd text for covid is negative 12/21: transfer to [facility], start on gentle hydration. mechanical soft diet 12/22: placed back on bipap, Na 163 - start on D5W, monitor bmp 12/23: spoke to sister, updated [id number], also discussed Pulmonary, will likely need LTAC. Obtain Nephrology due to persistent Hypernatremia. Will start on free water and continue to monitor. Remains of restriants for safety due to intermittent confusion. 12/24: Still with intermittent encephalopathy. Requiring restraints. Hypernatremia still persist continue hypotonic solution. Nephrology consulted. Free water started this morning will increase dose. Replace potassium as hypokalemia still persist 12/26/19: Clinically improving, BIPAP now PRN AND HS, Na improving, continue renal follow up. I have called [facility] in case they would like to transfer the patient tested previously requested. 12/26: Hypernatermia still persist, had pulled out NGT yesterday, Continue free water, Continue Bipap, [place] states he is not yet stable for transfer. Although from our critical care team this patient has been cleared for to be able to transfer. 12/27: Patient reintubated due to hypoxia. Continue current management as outlined by cement mason. Sodium is improving. Continue current management monitor ABG and intermittent chest x-ray. [facility] updated. Patient sister also updated. 12/28: Sepsis persist. Antibiotics adjusted.-start linezolid 600 mg IV q 12 hour. Will adjust insulin for better management of blood glucose. 12/29: Shock still persist Levophed adjusted upward. [place] advised patient not safe for travel at this time. Continue ventilatory support continue full support antibiotics adjusted by ID. Follow cultures 12/30: Still on the vent and pressors , Isolation secondary MRSA In sputum. 12/31: Continue current management, will need intermittent chest xray, adjust insulin For better blood glucose control. Check labs in am The high probability of a clinically significant, sudden or life threatening deterioration of the [renal, pulmonary] system(s) required my full and direct attention, intervention and personal management. The aggregate critical care time was [35] minutes. This time is in addition to time spent performing reported procedures but includes the following: [x] Data Review and interpretation [x] Patient assessment and monitoring of vital signs [x] Documentation [x] Medication orders and management History Interval history: Patient seen and examined, still on full ventilatory support, increased oxygen demand and still on pressors, no other adverse event reported. Hospitalist Physical - Physical exam Narrative exam: GENERAL: well-developed obese white male lying on bed on restraints due to confusion and pulling. ETT HEENT: Normocephalic. Atraumatic. No conjunctival congestion or icterus. Patient has moist mucous membranes. ETT NECK: Supple. Trachea midline. CHEST/LUNGS: Coarse breath sound auscultated bilaterally, HEART/CARDIOVASCULAR: Regular in rate and rhythm. S1 and S2 positive. ABDOMEN: Abdomen is soft, nontender. Patient has normal bowel sounds. SKIN: There is no rash. Warm and dry. NEURO: follows some command, AMS, no focal deficits MUSCULOSKELETAL: No joint effusion or tenderness. EXTRIMITY: No edema, no cyanosis or clubbing. PSYCH: Sedated - Constitutional Vitals: Temp Pulse Resp BP Pulse Ox 98.5 F 86 24 112/67 95 01/01/20 08:00 01/01/20 07:23 01/01/20 07:23 01/01/20 07:23 01/01/20 07:23 General appearance: Present: severe distress HEART Score - HEART Score Troponin: Troponin T 0.011 ng/mL (0.00-0.029) 12/18/19 14:45 Results - Labs CBC & Chem 7: 12/30/19 05:06 12/31/19 10:00 Labs: Laboratory Last Values WBC 11.7 K/mm3 (4.5-11.0) H 12/30/19 05:06 RBC 3.91 M/mm3 (3.65-5.03) 12/30/19 05:06 Hgb 9.4 gm/dl (11.8-15.2) L 12/30/19 05:06 Hct 32.4 % (35.5-45.6) L 12/30/19 05:06 MCV 83 fl (84-94) L 12/30/19 05:06 MCH 24 pg (28-32) L 12/30/19 05:06 MCHC 29 % (32-34) L 12/30/19 05:06 RDW 20.2 % (13.2-15.2) H 12/30/19 05:06 Plt Count 191 K/mm3 (140-440) 12/30/19 05:06 Lymph % (Auto) 9.0 % (13.4-35.0) L 12/22/19 05:15 [place] % (Auto) 12.3 % (0.0-7.3) H 12/22/19 05:15 Eos % (Auto) 5.0 % (0.0-4.3) H 12/22/19 05:15 Baso % (Auto) 0.5 % (0.0-1.8) 12/22/19 05:15 Lymph # 0.5 K/mm3 (1.2-5.4) L 12/22/19 05:15 [place]arton # 0.7 K/mm3 (0.0-0.8) 12/22/19 05:15 Eos # 0.3 K/mm3 (0.0-0.4) 12/22/19 05:15 Baso # 0.0 K/mm3 (0.0-0.1) 12/22/19 05:15 Add Manual Diff Complete 12/24/19 04:53 Total Counted 100 12/24/19 04:53 Seg Neutrophils % 73.2 % (40.0-70.0) H 12/22/19 05:15 Seg Neuts % (Manual) 60.0 % (40.0-70.0) 12/24/19 04:53 Band Neutrophils % 0 % 12/24/19 04:53 Lymphocytes % (Manual) 20.0 % (13.4-35.0) 12/24/19 04:53 Reactive Lymphs % (Man) 0 % 12/24/19 04:53 Monocytes % (Manual) 15.0 % (0.0-7.3) H 12/24/19 04:53 Eosinophils % (Manual) 4.0 % (0.0-4.3) 12/24/19 04:53 Basophils % (Manual) 0 % (0.0-1.8) 12/24/19 04:53 Metamyelocytes % 1.0 % 12/24/19 04:53 Myelocytes % 0 % 12/24/19 04:53 Promyelocytes % 0 % 12/24/19 04:53 Blast Cells % 0 % 12/24/19 04:53 Nucleated RBC % Not Reportable 12/24/19 04:53 Seg Neutrophils # 4.4 K/mm3 (1.8-7.7) 12/22/19 05:15 Seg Neutrophils # Man 3.5 K/mm3 (1.8-7.7) 12/24/19 04:53 Band Neutrophils # 0.0 K/mm3 12/24/19 04:53 Lymphocytes # (Manual) 1.2 K/mm3 (1.2-5.4) 12/24/19 04:53 Abs React Lymphs (Man) 0.0 K/mm3 12/24/19 04:53 Monocytes # (Manual) 0.9 K/mm3 (0.0-0.8) H 12/24/19 04:53 Eosinophils # (Manual) 0.2 K/mm3 (0.0-0.4) 12/24/19 04:53 Basophils # (Manual) 0.0 K/mm3 (0.0-0.1) 12/24/19 04:53 Metamyelocytes # 0.1 K/mm3 12/24/19 04:53 Myelocytes # 0.0 K/mm3 12/24/19 04:53 Promyelocytes # 0.0 K/mm3 12/24/19 04:53 Blast Cells # 0.0 K/mm3 12/24/19 04:53 WBC Morphology Not Reportable 12/24/19 04:53 Hypersegmented Neuts Not Reportable 12/24/19 04:53 Hyposegmented Neuts Not Reportable 12/24/19 04:53 Hypogranular Neuts Not Reportable 12/24/19 04:53 Smudge Cells Not Reportable 12/24/19 04:53 Toxic Granulation Not Reportable 12/24/19 04:53 Toxic Vacuolation Not Reportable 12/24/19 04:53 Dohle Bodies Not Reportable 12/24/19 04:53 Pelger-Huet Anomaly Not Reportable 12/24/19 04:53 Mervin Rods Not Reportable 12/24/19 04:53 Platelet Estimate Consistent w auto 12/24/19 04:53 Clumped Platelets Not Reportable 12/24/19 04:53 Plt Clumps, EDTA Not Reportable 12/24/19 04:53 Large Platelets Not Reportable 12/24/19 04:53 Giant Platelets Not Reportable 12/24/19 04:53 Platelet Satelliting Not Reportable 12/24/19 04:53 Plt Morphology Comment Not Reportable 12/24/19 04:53 RBC Morphology Not Reportable 12/24/19 04:53 Dimorphic RBCs Not Reportable 12/24/19 04:53 Polychromasia Rare 12/24/19 04:53 Hypochromasia 1+ 12/24/19 04:53 Poikilocytosis Not Reportable 12/24/19 04:53 Anisocytosis 1+ 12/24/19 04:53 Microcytosis Few 12/24/19 04:53 Macrocytosis Not Reportable 12/24/19 04:53 Spherocytes Not Reportable 12/24/19 04:53 Pappenheimer Bodies Not Reportable 12/24/19 04:53 Sickle Cells Not Reportable 12/24/19 04:53 Target Cells Not Reportable 12/24/19 04:53 Tear Drop Cells Not Reportable 12/24/19 04:53 Ovalocytes Few 12/24/19 04:53 Helmet Cells Not Reportable 12/24/19 04:53 [place] Bodies Not Reportable 12/24/19 04:53 [place] Rings Not Reportable 12/24/19 04:53 [place] Cells Not Reportable 12/24/19 04:53 Bite Cells Not Reportable 12/24/19 04:53 Crenated Cell Not Reportable 12/24/19 04:53 Elliptocytes Not Reportable 12/24/19 04:53 Acanthocytes (Spur) Not Reportable 12/24/19 04:53 Rouleaux Not Reportable 12/24/19 04:53 Hemoglobin C Crystals Not Reportable 12/24/19 04:53 Schistocytes Not Reportable 12/24/19 04:53 Malaria parasites Not Reportable 12/24/19 04:53 Gianni Bodies Not Reportable 12/24/19 04:53 Hem Pathologist Commnt No 12/24/19 04:53 PT 14.0 Sec. (12.2-14.9) 12/18/19 14:45 INR 1.10 (0.87-1.13) 12/18/19 14:45 APTT 29.4 Sec. (24.2-36.6) 12/18/19 14:45 D-Dimer 534.45 ng/mlDDU (0-234) H 12/18/19 14:45 ABG pH 7.397 pH Units (7.350-7.450) 01/01/20 04:19 ABG pCO2 48.4 mm Hg 01/01/20 04:19 ABG pO2 90.7 mm Hg (80.0-90.0) H 01/01/20 04:19 ABG HCO3 29.1 mmol/L (20.0-26.0) H 01/01/20 04:19 ABG O2 Saturation 97.0 % (95.0-99.0) 01/01/20 04:19 ABG O2 Content 10.9 (0.0-44) 01/01/20 04:19 ABG Base Excess 3.8 mmol/L (-2.0-3.0) H 01/01/20 04:19 ABG Hemoglobin 8.1 gm/dl (14.0-18.0) L 01/01/20 04:19 ABG Carboxyhemoglobin 1.6 % (0.0-5.0) 01/01/20 04:19 ABG Methemoglobin 1.0 % (0.0-1.5) 01/01/20 04:19 Oxyhemoglobin 94.5 % (95.0-99.0) L 01/01/20 04:19 FiO2 75 % 01/01/20 04:19 Sodium 151 mmol/L (137-145) H D 12/31/19 10:00 Potassium 3.2 mmol/L (3.6-5.0) L 12/31/19 10:00 Chloride 113.0 mmol/L (98-107) H 12/31/19 10:00 Carbon Dioxide 28 mmol/L (22-30) 12/31/19 10:00 Anion Gap 13 mmol/L 12/31/19 10:00 BUN 23 mg/dL (9-20) H 12/31/19 10:00 Creatinine 1.8 mg/dL (0.8-1.5) H 12/31/19 10:00 Estimated GFR 47 ml/min 12/31/19 10:00 BUN/Creatinine Ratio 13 % 12/31/19 10:00 Glucose 373 mg/dL (75-100) H 12/31/19 10:00 POC Glucose 303 (70-105) H 01/01/20 06:56 Lactic Acid 1.70 mmol/L (0.7-2.0) 12/30/19 05:06 Calcium 8.9 mg/dL (8.4-10.2) 12/31/19 10:00 Phosphorus 3.70 mg/dL (2.5-4.5) 12/27/19 03:48 Magnesium 2.60 mg/dL (1.7-2.3) H 12/30/19 05:06 Ferritin 83.4 ng/mL (13.0-400.0) 12/18/19 14:45 Total Bilirubin 0.30 mg/dL (0.1-1.2) 12/19/19 04:13 AST 85 units/L (5-40) H 12/19/19 04:13 ALT 61 units/L (7-56) H 12/19/19 04:13 Alkaline Phosphatase 80 units/L (35-129) 12/19/19 04:13 Ammonia 39.0 umol/L (25-60) 12/18/19 14:45 Lactate Dehydrogenase 235 units/L (91-180) H 12/18/19 14:45 Lactate Dehydrogenase 236 units/L (91-180) H 12/18/19 14:45 Total Creatine Kinase 40 units/L (55-170) L 12/18/19 14:45 Troponin T 0.011 ng/mL (0.00-0.029) 12/18/19 14:45 C-Reactive Protein 8.40 mg/dL (0.00-1.30) H 12/18/19 14:45 C-Reactive Protein 8.50 mg/dL (0.00-1.30) H 12/18/19 14:45 Total Protein 6.8 g/dL (6.3-8.2) 12/19/19 04:13 Albumin 3.0 g/dL (3.9-5) L 12/19/19 04:13 Albumin/Globulin Ratio 0.8 % 12/19/19 04:13 Procalcitonin 0.22 ng/mL (<0.15) 12/18/19 14:45 TSH 2.300 mlU/mL (0.270-4.200) 12/18/19 14:45 Urine Color Yellow (Yellow) 12/19/19 16:50 Urine Turbidity Clear (Clear) 12/19/19 16:50 Urine pH 5.0 (5.0-7.0) 12/19/19 16:50 Ur Specific [place] 1.010 (1.003-1.030) 12/19/19 16:50 Urine Protein <15 mg/dl mg/dL (Negative) 12/19/19 16:50 Urine Glucose (UA) 150 mg/dL (Negative) 12/19/19 16:50 Urine Ketones Neg mg/dL (Negative) 12/19/19 16:50 Urine Blood Neg (Negative) 12/19/19 16:50 Urine Nitrite Neg (Negative) 12/19/19 16:50 Urine Bilirubin Neg (Negative) 12/19/19 16:50 Urine Urobilinogen < 2.0 mg/dL (<2.0) 12/19/19 16:50 Ur Leukocyte Esterase Tr (Negative) 12/19/19 16:50 Urine WBC (Auto) 7.0 /HPF (0.0-6.0) H 12/19/19 16:50 Urine RBC (Auto) 4.0 /HPF (0.0-6.0) 12/19/19 16:50 U Epithel Cells (Auto) 1.0 /HPF (0-13.0) 12/19/19 16:50 Urine Bacteria (Auto) 1+ /HPF (Negative) 12/19/19 16:50 Urine Mucus Few /HPF 12/19/19 16:50 Urine Osmolality 140 Mosm/kg 12/25/19 16:45 Urine Creatinine < 4.2 mg/dL (0.1-20.0) 12/25/19 16:45 Urine Sodium 10 mmol/L 12/25/19 16:45 Urine Total Protein < 4 mg/dL (5-11.8) L 12/25/19 16:45 Digoxin 0.3 ng/mL (0.9-2.0) L 12/18/19 14:45 Salicylates < 0.3 mg/dL (2.8-20.0) L 12/18/19 14:45 Acetaminophen < 5.0 ug/mL (10.0-30.0) L 12/18/19 14:45 Plasma/Serum Alcohol < 0.01 % (0-0.07) 12/18/19 14:45 Coronavirus (PCR) Negative (Negative) 12/21/19 14:45 Blood Type A POSITIVE 12/18/19 14:45 Antibody Screen Negative 12/18/19 14:45 Microbiology: Microbiology 12/29/19 15:41 Peripheral/Venous Blood Culture - Preliminary NO GROWTH AFTER 48 HOURS 12/29/19 15:44 Peripheral/Venous Blood Culture - Preliminary NO GROWTH AFTER 48 HOURS 12/29/19 13:03 Peripheral/Venous Blood Culture - Preliminary NO GROWTH AFTER 48 HOURS 12/29/19 13:42 Peripheral/Venous Blood Culture - Preliminary NO GROWTH AFTER 48 HOURS - Diagnostic Impressions Diagnostic Impressions: Echocardiogram 12/28/19 14:07 Transthoracic Echocardiogram Indication: SOB BP: 95/51 HR: 99 Conclusions *The left ventricular chamber size is mildly dilated. *There is no left ventricular hypertrophy. *Global left ventricular systolic function is mildly decreased. *The estimated ejection fraction is 45-50%. *Abnormal left ventricular diastolic filling is observed, consistent with impaired relaxation. *The right ventricular global systolic function is mildly reduced. *The right ventricular systolic pressure is calculated at 53 mmHg. Findings Left Ventricle: The left ventricular chamber size is mildly dilated. There is no left ventricular hypertrophy. Global left ventricular systolic function is mildly decreased. The estimated ejection fraction is 45-50%. Abnormal left ventricular diastolic filling is observed, consistent with impaired relaxation. Left Atrium: The left atrial chamber size is normal. Right Ventricle: The right ventricular cavity size is normal. The right ventricular global systolic function is mildly reduced. Right Atrium: The right atrial cavity size is normal. Aortic Valve: The aortic valve leaflets are mildly thickened. There is no evidence of aortic regurgitation. Mitral Valve: The mitral valve leaflets are mildly thickened. There is no evidence of mitral regurgitation. Tricuspid Valve: The tricuspid valve leaflets are normal. There is mild tricuspid regurgitation. The right ventricular systolic pressure is calculated at 53 mmHg. Pulmonic Valve: The pulmonic valve appears normal. There is trace pulmonic regurgitation. Pericardium: There is no pericardial effusion. Aorta: The aorta appears normal. Venous: The inferior vena cava is dilated. Measurements Chambers 2D Name Value Normal Range IVSd (2D) 1.08 cm (0.6 - 1.1) LVPWd (2D) 1 cm (0.6 - 1.1) LVIDd (2D) 4.67 cm (3.7 - 5.6) LVIDs (2D) 3.89 cm (2 - 3.8) LV FS (2D) 16.76 % - EF Teichholz (2D) 35.14 % - Ao root diameter (2D) 2.86 cm (2 - 3.7) Volumes/Mass Name Value Normal Range LA ESV SP 4CH (A/L) 31.8 ml - LA ESV SP 2CH (A/L) 27.37 ml - LA ESV BP (A/L) 33.43 ml - LA ESV BP (A/L) index 14.11 ml/m2 - LA ESV SP 4CH (MOD) 26.83 ml - LA ESV SP 2CH (MOD) 29.59 ml - LA ESV BP (MOD) 30.47 ml - LA ESV BP (MOD) index 12.86 ml/m2 - Diastolic/Systolic Function Name Value Normal Range MV E-wave Vmax 0.39 m/sec - MV deceleration time 115.69 msec - MV A-wave Vmax 0.63 m/sec - MV E:A ratio 0.62 ratio - Aortic Valve Name Value Normal Range AV Vmax 1.14 m/sec - AV VTI 20.1 cm - AV peak gradient 5.17 mmHg - AV mean gradient 3.89 mmHg - LVOT diameter 2.02 cm - LVOT Vmax 0.99 m/sec - LVOT VTI 16.45 cm - LVOT peak gradient 3.95 mmHg - LVOT mean gradient 2.45 mmHg - SV LVOT 52.45 ml - RALPH (continuity Vmax) 2.78 cm2 - RALPH (continuity VTI) 2.61 cm2 - Tricuspid Valve Name Value Normal Range TR Vmax 3.36 m/sec - TR peak gradient 45 mmHg - RAP 8 mmHg - RVSP 53 mmHg - IVC diameter 2.33 cm (1.2 - 2.3) Pulmonic Valve/Qp:Qs Name Value Normal Range PV Vmax 0.89 m/sec - PV peak gradient 3.16 mmHg - HI end-diastolic Vmax 1.42 m/sec - PV acceleration time 79.92 msec - Sykes/IV: Voiding Method Condom Catheter IV Catheter Type [Right Upper PICC Line arm] IV Catheter Type [Right Leg] Intra-osseous IV Catheter Type [Right Wrist] Peripheral IV IV Catheter Type [Right Hand] INT / Saline Lock IV Catheter Type [Left Hand] INT / Saline Lock IV Catheter Type [Left Forearm INT / Saline Lock ] IV Catheter Type [Left Triple Lumen Cath Internal Jugular] Active Medications - Current Medications Current Medications: Generic Name Dose Route Start Last Admin Trade Name Freq PRN Reason Stop Dose Admin Acetaminophen 650 mg 12/29/19 09:21 12/29/19 09:26 Tylenol PO 650 mg Q4H PRN Administration Non Cardiac Pain or Temp>100.5 Albuterol/Ipratropium 1 ampul 12/18/19 14:00 01/01/20 07:23 Duoneb *Not For Prn Use* IH 1 ampul TIDRT SHANEL Administration Lipase/Protease/Amylase 1 each 12/19/19 08:29 Erendira Cabrera 10,500 Unit FEEDTUBE PRN PRN For Clogged Feeding Tube Aspirin 81 mg 12/19/19 10:00 12/31/19 09:36 Baby Aspirin PO 81 mg DAILY SHANEL Administration Famotidine 20 mg 12/20/19 10:00 12/31/19 22:24 Pepcid PO 20 mg BID SHANEL Administration Fentanyl 50 mcg 12/27/19 16:57 Sublimaze IV Q10MIN PRN ANALGESIA Folic Acid 1 mg 12/19/19 10:00 12/31/19 09:36 Folvite PO 1 mg DAILY SHANEL Administration Heparin Sodium (Porcine) 5,000 unit 12/18/19 22:00 12/31/19 22:24 Heparin SUB-Q 5,000 unit Q12HR SHANEL Administration Hydrophilic Ointment 1 applic 12/18/19 12:35 Vaseline Lip Therapy TP Q2HR PRN Dry Lips Fentanyl Citrate 2,000 mcg in 100 mls @ 5.85 mls/hr 12/27/19 17:00 01/01/20 07:53 Fentanyl Drip Premix IV 1 mcg/kg/hr TITR SHANEL 5.85 mls/hr Administration Protocol 1 MCG/KG/HR Norepinephrine 4 mg in 250 mls @ 7.5 mls/hr 12/28/19 15:00 12/31/19 18:12 Levophed Drip 4 Mg/Ns 250 Ml IV 0 mcg/min TITR SHANEL 0 mls/hr Titration Protocol 2 MCG/MIN Linezolid 600 mg in 300 mls @ 300 mls/hr 12/29/19 15:00 12/31/19 22:24 Zyvox 600mg/300ml IV 300 mls/hr Q12HR SHANEL Administration Protocol Vasopressin 20 unit/ Sodium 101 mls @ 9.09 mls/hr 12/30/19 12:30 01/01/20 06:49 Chloride IV 0.03 units/min TITR SHANEL 9.09 mls/hr Administration Protocol 0.03 UNITS/MIN Cefepime HCl 2 gm in 100 mls @ 200 mls/hr 12/30/19 18:00 01/01/20 06:48 Cefepime/Ns 2 Gm/100 Ml IV 200 mls/hr Q12H SHANEL Administration Protocol Fluconazole 200 mg in 100 mls @ 100 mls/hr 12/30/19 18:00 12/31/19 17:47 Diflucan IV 100 mls/hr Q24H [facility] Administration Protocol Dopamine HCl/Dextrose 800 mg in 250 mls @ 4.388 mls/hr 12/31/19 16:00 01/01/20 07:55 Intropin Drip 800 Mg/D5w 250 Ml IV 2 mcg/kg/min TITR SHANEL 4.388 mls/hr Titration Protocol 2 MCG/KG/MIN Insulin Glargine 35 units 01/01/20 10:04 Lantus SUB-Q QHS SHANEL Insulin Glargine 35 units 01/01/20 10:04 Lantus SUB-Q QAMDIAB SHANEL Insulin Human Lispro 0 unit 12/31/19 14:00 01/01/20 06:48 Humalog SUB-Q 8 unit Q4HR SHANEL Administration Protocol Levothyroxine Sodium 88 mcg 12/19/19 06:00 01/01/20 06:48 Synthroid PO 88 mcg QAM@0600 SHANEL Administration Multi-Ingred Cream/Lotion/Oil/Oint 1 applic 12/18/19 12:35 Artificial Tears Ophth Oint OU Q4HR PRN Dry Eye(s) Potassium Chloride 40 meq 12/29/19 10:00 12/31/19 11:05 Potassium Chloride FEEDTUBE 40 meq QDAY SHANEL Administration Simple Syrup 15 ml 12/19/19 08:29 Simple Syrup FEEDTUBE PRN PRN Hypoglycemia Simple Syrup 30 ml 12/19/19 08:29 Simple Syrup FEEDTUBE PRN PRN Hypoglycemia Sodium Bicarbonate 325 mg 12/19/19 08:29 Sodium Bicarbonate FEEDTUBE PRN PRN For Clogged Feeding Tube Sodium Chloride 10 ml 12/18/19 22:00 01/01/20 07:54 Sodium Chloride Flush Syringe 10 Ml IV Not Given BID SHANEL Sodium Chloride 10 ml 12/18/19 13:31 Sodium Chloride Flush Syringe 10 Ml IV PRN PRN LINE FLUSH Nutrition/Malnutrition Assess - Dietary Evaluation Nutrition/Malnutrition Findings: Nutrition Notes Start: 12/19/19 08:16 Freq: Status: Active Protocol: Document 12/30/19 12:15 LM (Rec: 12/30/19 12:19 LM [id number]) Nutrition Notes Initial or Follow up Reassessment Current Diagnosis Diabetes,Sepsis,Hypertension, Heart Failure,Respiratory Failure Other Pertinent Diagnosis Suspected COVID-19, pneu Current Diet Vital AF 1.2 at 65ml/hr Labs/Tests Na 159 K 3.2 Cr 1.9 POC glu 399 Pertinent Medications Levophed Humalog Height 6 ft 2 in Weight 117 kg [place] Body Weight (kg) 86.36 BMI 33.1 Subjective/Other Information Pt tolerating TF. Percent of energy/protein needs met: 94%/68% Burn Absent Trauma Absent Current % PO Negligible Minimum of two criteria No physical signs of malnutrition #1 Nutrition Diagnosis Inadequate oral intake Diagnosis Progress(for reassessment Continues documentation) Is patient on ventilator? Yes Is Patient Ambulatory and/or Out of Bed No REE-([place]-confined to bed) 2469.960 Kcal/Kg value to use for calculation 17 Approximate Energy Requirements Using 1989 kcal/Kg Calculation Used for Recommendations Kcal/kg Additional Notes Protein: 172g (>/=2g/kg using IBW 86kg) Fluid 1ml/kcal Nutrition Intervention Change Diet Order: TF Nutrition Support: Vital AF 1.2 at 65ml/hr Flush 300ml q4h for hypernatremia Flush 100ml q4h once resolved Kcal 1,872 Protein (gm) 117 Fluid (mL) 1,265 Goal #1 TF tolerance Goal #2 Meet at least 75% of energy and protein needs Anticipated Discharge Needs: unable to determine at this time Follow-Up By: 01/04/20 Additional Comments F/U for TF tolerance
[2020-01-01] MEDS ORDERED: SODIUM CHLORIDE 0.9% 500 ML 500 ML ONE (11:10)
[2020-01-01] MEDS: HEPARIN 5,000 UNIT/1 ML VIAL SUB-Q SCH ×2 (11:21→22:04)
[2020-01-01] MEDS: POTASSIUM CHLORIDE 20 MEQ PACKET FEEDTUBE SCH (11:21)
[2020-01-01] MEDS: FOLIC ACID 1 MG TAB PO SCH (11:21)
[2020-01-01] MEDS: FAMOTIDINE 20 MG TAB PO SCH ×2 (11:21→22:04)
[2020-01-01] MEDS: ASPIRIN 81 MG TAB CHEW PO SCH (11:21)
[2020-01-01] MEDS: LINEZOLID 600 MG/300 ML BAG IV SCH ×2 (11:23→22:03)
[2020-01-01] MEDS: INSULIN GLARGINE 100 UNITS/ML SUB-Q SCH ×2 (11:25→22:05)
[2020-01-01 15:25] LABS: Calcium 9.4 mg/dL (8.4-10.2)
[2020-01-01] MEDS ORDERED: LACTULOSE 20 GM/30 ML ORAL LIQD PO ONE (15:37)
--- NOTE | 2020-01-01 16:25 | Progress Note ---
Assessment and Plan Acute Hypoxemic Respiratory Failure Severe Sepsis with Shock Bilateral Pneumonia PUI COVID-19 Morbid Obesity H/O CHF JOE - get KUB - bowel regimen (simethicone 160 mg qid X 3 days then prn; docusate bid; miralax qhs & mag citrate X 1 dose now) - vasopressors for MAP > 65 mmHg - continue care as below otherwise; - Daily SAT and SBT assessment as tolerated - accuchecks with glycemic control per SSI (While critically ill target blood glucose of 140-180 mg/dL; avoid hypoglycemia) - sedation for target RASS 0 to -1 - continue to wean supplemental oxygen for target O2 sat's > 92% acutely - continue bronchodilators with pulmonary hygiene per RT - VAP bundle addressed - lung protective strategies - wean per pulmonary driven protocols otherwise - continue to avoid benzodiazepine's, reduce the possibility of delirium - resume AB's per ID rec's - prn analgesia per CPOT score - Maintenance of sleep-wake cycle - continue to avoid benzodiazepine's, reduce the possibility of delirium - continue enteral nutritional support at goal rate as tolerated - G.I. & VTE prophylaxis - PT/OT/ROM exercises - continue mobility protocols for pressure ulcer prophylaxis - repeat COVID-19 test negative - continue aspiration precautions - continue accuchecks with glycemic control per SSI (While critically ill target blood glucose of 140-180 mg/dL; avoid hypoglycemia) - Monitor hemodynamics closely - continue other care per attending / other consultants - discharge planning ongoing concurrently - LTAC evaluation requested .... Re-evaluate in am & prn CONDITION: CRITICAL PROGNOSIS: GUARDED CODE STATUS: FULL CODE The high probability of a clinically significant, sudden or life-threatening deterioration of the [respiratory, cardiovascular, GI & neurologic] system(s) required my full and direct attention, intervention and personal management. The aggregate critical care time was [34] minutes without overlap. Time includes s pent on; [x] Data Review and interpretation [x] Patient assessment and monitoring of vital signs [x] Documentation [x] Medication orders and management Subjective Date of service: 01/01/20 Principal diagnosis: Ac. Hypoxemic Resp Failure; Septic Shock; Magdiel. PNA; PUI COVID-19; CHF; JOE Interval history: Patient is seen today for: Acute Hypoxemic Respiratory Failure; Severe Sepsis with Shock; Bilateral Pneumonia; PUI COVID-19; Morbid Obesity; H/O CHF; JOE Seen and examined at bedside; 24hour events reviewed; nursing and respiratory care staff consulted; no adverse overnight events reported to me; resting peacefully in bed; remains on MVS; weaning tenuously; abdomen firm but not acute; no emesis or overt aspiration; AMS is persistent Objective Vital Signs - 12hr 01/01/20 01/01/20 01/01/20 04:30 05:00 05:17 Temperature Pulse Rate 61 63 71 Pulse Rate [ Bilateral] Respiratory 24 25 H Rate Respiratory Rate [Bilateral ] Blood Pressure 108/58 99/58 O2 Sat by Pulse 95 98 97 Oximetry 01/01/20 01/01/20 01/01/20 05:30 06:00 06:30 Temperature Pulse Rate 60 66 64 Pulse Rate [ Bilateral] Respiratory 24 24 24 Rate Respiratory Rate [Bilateral ] Blood Pressure 98/56 102/48 117/66 O2 Sat by Pulse 96 96 96 Oximetry 01/01/20 01/01/20 01/01/20 07:00 07:23 07:30 Temperature Pulse Rate 64 62 63 Pulse Rate [ 86 Bilateral] Respiratory 24 24 Rate Respiratory 24 Rate [Bilateral ] Blood Pressure 107/61 112/67 102/59 O2 Sat by Pulse 96 95 95 Oximetry 01/01/20 01/01/20 01/01/20 08:00 08:30 09:00 Temperature 98.5 F Pulse Rate 78 78 75 Pulse Rate [ Bilateral] Respiratory 23 24 25 H Rate Respiratory Rate [Bilateral ] Blood Pressure 78/48 85/53 95/45 O2 Sat by Pulse 98 96 Oximetry 01/01/20 01/01/20 01/01/20 09:30 10:00 10:30 Temperature Pulse Rate 68 68 70 Pulse Rate [ Bilateral] Respiratory 24 24 24 Rate Respiratory Rate [Bilateral ] Blood Pressure 91/54 96/58 92/54 O2 Sat by Pulse 95 100 94 Oximetry 01/01/20 01/01/20 01/01/20 11:00 11:30 11:59 Temperature Pulse Rate 69 72 72 Pulse Rate [ Bilateral] Respiratory 24 24 Rate Respiratory Rate [Bilateral ] Blood Pressure 90/56 102/61 112/64 O2 Sat by Pulse 95 97 97 Oximetry 01/01/20 01/01/20 01/01/20 12:00 12:30 13:00 Temperature 97.6 F Pulse Rate 61 60 72 Pulse Rate [ Bilateral] Respiratory 24 24 24 Rate Respiratory Rate [Bilateral ] Blood Pressure 103/61 106/61 94/57 O2 Sat by Pulse 97 96 96 Oximetry 01/01/20 01/01/20 01/01/20 13:21 13:30 14:00 Temperature Pulse Rate 61 81 Pulse Rate [ 62 Bilateral] Respiratory 24 24 Rate Respiratory 24 Rate [Bilateral ] Blood Pressure 110/66 89/52 O2 Sat by Pulse 96 97 Oximetry 01/01/20 01/01/20 01/01/20 14:30 15:00 15:58 Temperature Pulse Rate 77 66 77 Pulse Rate [ Bilateral] Respiratory 24 24 Rate Respiratory Rate [Bilateral ] Blood Pressure 84/51 87/57 85/52 O2 Sat by Pulse 95 96 Oximetry Constitutional: no acute distress, alert, other (elderly obese AAM with mildly increrased respiratory effort at rest on MVS) Eyes: non-icteric ENT: oropharynx moist, other (ETT 24 cm KOLBY) Neck: supple, no lymphadenopathy, no JVD Effort: mildly labored Ascultation: Bilateral: diminished breath sounds, rhonchi Percussion: Bilateral: not dull Cardiovascular: regular rate and rhythm, other (S1,S2) Gastrointestinal: normoactive bowel sounds, soft, non-tender, other (protuberant) Integumentary: rash (stasis dermatyitis) Extremities: no cyanosis, pink and warm, pulses normal, no ischemia or petechiae, edema (trace) Neurologic: normal mental status, non-focal exam, pupils equal and round, CN II- XII normal, motor strength normal and (obeys simple commands) Psychiatric: other (unable to assess re: AQMS) CBC and BMP: 01/02/20 05:00 01/01/20 14:49 ABG, PT/INR, D-dimer: ABG ABG pH 7.397 pH Units (7.350-7.450) 01/01/20 04:19 ABG pCO2 48.4 mm Hg 01/01/20 04:19 ABG pO2 90.7 mm Hg (80.0-90.0) H 01/01/20 04:19 ABG O2 Saturation 97.0 % (95.0-99.0) 01/01/20 04:19 PT/INR, D-dimer PT 14.0 Sec. (12.2-14.9) 12/18/19 14:45 INR 1.10 (0.87-1.13) 12/18/19 14:45 D-Dimer 534.45 ng/mlDDU (0-234) H 12/18/19 14:45 Abnormal lab findings: Abnormal Labs 12/18/19 12/18/19 12/18/19 12:23 14:45 14:45 WBC Hgb 10.4 L Hct 35.2 L MCV MCH 25 L MCHC 30 L RDW 18.8 H Lymph % (Auto) Wayne % (Auto) 11.6 H Eos % (Auto) 4.8 H Lymph # Wayne # 1.0 H Seg Neutrophils % Monocytes % (Manual) Monocytes # (Manual) D-Dimer ABG pH ABG pO2 ABG HCO3 ABG O2 Saturation ABG Base Excess ABG Hemoglobin Oxyhemoglobin Sodium Potassium Chloride Carbon Dioxide BUN Creatinine Glucose POC Glucose 328 H Lactic Acid Calcium Magnesium AST ALT Lactate Dehydrogenase Total Creatine Kinase 40 L C-Reactive Protein Albumin Urine WBC (Auto) Urine Total Protein Digoxin Salicylates Acetaminophen 12/18/19 12/18/19 12/18/19 14:45 14:45 14:45 WBC Hgb Hct MCV MCH MCHC RDW Lymph % (Auto) Wayne % (Auto) Eos % (Auto) Lymph # Wayne # Seg Neutrophils % Monocytes % (Manual) Monocytes # (Manual) D-Dimer 534.45 H ABG pH ABG pO2 ABG HCO3 ABG O2 Saturation ABG Base Excess ABG Hemoglobin Oxyhemoglobin Sodium 156 H Potassium Chloride 112.3 H Carbon Dioxide 31 H BUN 32 H Creatinine Glucose 328 H POC Glucose Lactic Acid Calcium Magnesium AST ALT Lactate Dehydrogenase 235 H Total Creatine Kinase C-Reactive Protein 8.50 H Albumin 3.6 L Urine WBC (Auto) Urine Total Protein Digoxin 0.3 L Salicylates < 0.3 L Acetaminophen 12/18/19 12/18/19 12/18/19 14:45 14:45 16:00 WBC Hgb Hct MCV MCH MCHC RDW Lymph % (Auto) Wayne % (Auto) Eos % (Auto) Lymph # Wayne # Seg Neutrophils % Monocytes % (Manual) Monocytes # (Manual) D-Dimer ABG pH ABG pO2 69.8 L ABG HCO3 31.8 H ABG O2 Saturation ABG Base Excess 5.4 H ABG Hemoglobin 10.0 L Oxyhemoglobin 92.9 L Sodium Potassium Chloride Carbon Dioxide BUN Creatinine Glucose 314 H POC Glucose Lactic Acid Calcium Magnesium AST ALT Lactate Dehydrogenase 236 H Total Creatine Kinase C-Reactive Protein 8.40 H Albumin Urine WBC (Auto) Urine Total Protein Digoxin Salicylates Acetaminophen < 5.0 L 12/18/19 12/18/19 12/18/19 16:35 18:30 22:56 WBC Hgb Hct MCV MCH MCHC RDW Lymph % (Auto) Wayne % (Auto) Eos % (Auto) Lymph # Wayne # Seg Neutrophils % Monocytes % (Manual) Monocytes # (Manual) D-Dimer ABG pH ABG pO2 ABG HCO3 ABG O2 Saturation ABG Base Excess ABG Hemoglobin Oxyhemoglobin Sodium Potassium Chloride Carbon Dioxide BUN Creatinine Glucose POC Glucose 310 H 353 H Lactic Acid 2.50 H* Calcium Magnesium AST ALT Lactate Dehydrogenase Total Creatine Kinase C-Reactive Protein Albumin Urine WBC (Auto) Urine Total Protein Digoxin Salicylates Acetaminophen 12/19/19 12/19/19 12/19/19 04:13 04:13 06:00 WBC Hgb 10.0 L Hct 34.2 L MCV MCH 25 L MCHC 29 L RDW 19.0 H Lymph % (Auto) Wayne % (Auto) 10.1 H Eos % (Auto) Lymph # Wayne # 1.1 H Seg Neutrophils % 71.8 H Monocytes % (Manual) Monocytes # (Manual) D-Dimer ABG pH ABG pO2 186.5 H ABG HCO3 27.8 H ABG O2 Saturation 99.1 H ABG Base Excess ABG Hemoglobin 10.4 L Oxyhemoglobin Sodium 157 H Potassium Chloride 119.1 H Carbon Dioxide BUN 26 H Creatinine Glucose 302 H POC Glucose Lactic Acid Calcium 7.9 L Magnesium AST 85 H ALT 61 H Lactate Dehydrogenase Total Creatine Kinase C-Reactive Protein Albumin 3.0 L Urine WBC (Auto) Urine Total Protein Digoxin Salicylates Acetaminophen 12/19/19 12/19/19 12/19/19 08:30 11:55 16:50 WBC Hgb Hct MCV MCH MCHC RDW Lymph % (Auto) Wayne % (Auto) Eos % (Auto) Lymph # Wayne # Seg Neutrophils % Monocytes % (Manual) Monocytes # (Manual) D-Dimer ABG pH ABG pO2 ABG HCO3 ABG O2 Saturation ABG Base Excess ABG Hemoglobin Oxyhemoglobin Sodium Potassium Chloride Carbon Dioxide BUN Creatinine Glucose POC Glucose 264 H 251 H Lactic Acid Calcium Magnesium AST ALT Lactate Dehydrogenase Total Creatine Kinase C-Reactive Protein Albumin Urine WBC (Auto) 7.0 H Urine Total Protein Digoxin Salicylates Acetaminophen 12/19/19 12/19/19 12/20/19 17:41 23:42 03:35 WBC Hgb Hct MCV MCH MCHC RDW Lymph % (Auto) Wayne % (Auto) Eos % (Auto) Lymph # Wayne # Seg Neutrophils % Monocytes % (Manual) Monocytes # (Manual) D-Dimer ABG pH ABG pO2 ABG HCO3 27.7 H ABG O2 Saturation ABG Base Excess ABG Hemoglobin 11.6 L Oxyhemoglobin 94.9 L Sodium Potassium Chloride Carbon Dioxide BUN Creatinine Glucose POC Glucose 180 H 205 H Lactic Acid Calcium Magnesium AST ALT Lactate Dehydrogenase Total Creatine Kinase C-Reactive Protein Albumin Urine WBC (Auto) Urine Total Protein Digoxin Salicylates Acetaminophen 12/20/19 12/20/19 12/20/19 04:45 04:45 05:27 WBC Hgb 9.4 L Hct 31.4 L MCV MCH 25 L MCHC 30 L RDW 19.4 H Lymph % (Auto) Wayne % (Auto) 10.2 H Eos % (Auto) 6.0 H Lymph # 0.9 L Wayne # Seg Neutrophils % Monocytes % (Manual) Monocytes # (Manual) D-Dimer ABG pH ABG pO2 ABG HCO3 ABG O2 Saturation ABG Base Excess ABG Hemoglobin Oxyhemoglobin Sodium 153 H Potassium Chloride 114.6 H Carbon Dioxide BUN Creatinine Glucose 170 H POC Glucose 188 H Lactic Acid Calcium 7.9 L Magnesium AST ALT Lactate Dehydrogenase Total Creatine Kinase C-Reactive Protein Albumin Urine WBC (Auto) Urine Total Protein Digoxin Salicylates Acetaminophen 12/20/19 12/20/19 12/21/19 12:26 18:20 00:20 WBC Hgb Hct MCV MCH MCHC RDW Lymph % (Auto) Wayne % (Auto) Eos % (Auto) Lymph # Wayne # Seg Neutrophils % Monocytes % (Manual) Monocytes # (Manual) D-Dimer ABG pH ABG pO2 ABG HCO3 ABG O2 Saturation ABG Base Excess ABG Hemoglobin Oxyhemoglobin Sodium Potassium Chloride Carbon Dioxide BUN Creatinine Glucose POC Glucose 200 H 263 H 218 H Lactic Acid Calcium Magnesium AST ALT Lactate Dehydrogenase Total Creatine Kinase C-Reactive Protein Albumin Urine WBC (Auto) Urine Total Protein Digoxin Salicylates Acetaminophen 12/21/19 12/21/19 12/21/19 04:38 05:26 12:35 WBC Hgb Hct MCV MCH MCHC RDW Lymph % (Auto) Wayne % (Auto) Eos % (Auto) Lymph # Wayne # Seg Neutrophils % Monocytes % (Manual) Monocytes # (Manual) D-Dimer ABG pH ABG pO2 ABG HCO3 ABG O2 Saturation ABG Base Excess ABG Hemoglobin Oxyhemoglobin Sodium 149 H Potassium 3.5 L Chloride 110.5 H Carbon Dioxide BUN Creatinine Glucose 158 H POC Glucose 193 H 193 H Lactic Acid Calcium Magnesium AST ALT Lactate Dehydrogenase Total Creatine Kinase C-Reactive Protein Albumin Urine WBC (Auto) Urine Total Protein Digoxin Salicylates Acetaminophen 12/21/19 12/22/19 12/22/19 18:29 00:03 05:15 WBC Hgb 10.3 L Hct 34.7 L MCV MCH 25 L MCHC 30 L RDW 19.4 H Lymph % (Auto) 9.0 L Wayne % (Auto) 12.3 H Eos % (Auto) 5.0 H Lymph # 0.5 L Wayne # Seg Neutrophils % 73.2 H Monocytes % (Manual) Monocytes # (Manual) D-Dimer ABG pH ABG pO2 ABG HCO3 ABG O2 Saturation ABG Base Excess ABG Hemoglobin Oxyhemoglobin Sodium Potassium Chloride Carbon Dioxide BUN Creatinine Glucose POC Glucose 186 H 143 H Lactic Acid Calcium Magnesium AST ALT Lactate Dehydrogenase Total Creatine Kinase C-Reactive Protein Albumin Urine WBC (Auto) Urine Total Protein Digoxin Salicylates Acetaminophen 12/22/19 12/22/19 12/22/19 05:15 06:02 12:13 WBC Hgb Hct MCV MCH MCHC RDW Lymph % (Auto) Wayne % (Auto) Eos % (Auto) Lymph # Wayne # Seg Neutrophils % Monocytes % (Manual) Monocytes # (Manual) D-Dimer ABG pH ABG pO2 ABG HCO3 ABG O2 Saturation ABG Base Excess ABG Hemoglobin Oxyhemoglobin Sodium 152 H Potassium Chloride 113.5 H Carbon Dioxide BUN Creatinine Glucose 126 H POC Glucose 144 H 159 H Lactic Acid Calcium Magnesium AST ALT Lactate Dehydrogenase Total Creatine Kinase C-Reactive Protein Albumin Urine WBC (Auto) Urine Total Protein Digoxin Salicylates Acetaminophen 12/22/19 12/22/19 12/23/19 18:03 23:50 05:27 WBC Hgb Hct MCV MCH MCHC RDW Lymph % (Auto) Wayne % (Auto) Eos % (Auto) Lymph # Wayne # Seg Neutrophils % Monocytes % (Manual) Monocytes # (Manual) D-Dimer ABG pH ABG pO2 ABG HCO3 ABG O2 Saturation ABG Base Excess ABG Hemoglobin Oxyhemoglobin Sodium Potassium Chloride Carbon Dioxide BUN Creatinine Glucose POC Glucose 140 H 227 H 185 H Lactic Acid Calcium Magnesium AST ALT Lactate Dehydrogenase Total Creatine Kinase C-Reactive Protein Albumin Urine WBC (Auto) Urine Total Protein Digoxin Salicylates Acetaminophen 12/23/19 12/23/19 12/23/19 12:13 16:05 16:40 WBC Hgb Hct MCV MCH MCHC RDW Lymph % (Auto) Wayne % (Auto) Eos % (Auto) Lymph # Wayne # Seg Neutrophils % Monocytes % (Manual) Monocytes # (Manual) D-Dimer ABG pH 7.259 L ABG pO2 76.2 L ABG HCO3 30.6 H ABG O2 Saturation 94.6 L ABG Base Excess ABG Hemoglobin 11.5 L Oxyhemoglobin 92.2 L Sodium 163 H* D Potassium 3.4 L Chloride 120.1 H Carbon Dioxide BUN Creatinine Glucose 162 H POC Glucose 132 H Lactic Acid Calcium Magnesium AST ALT Lactate Dehydrogenase Total Creatine Kinase C-Reactive Protein Albumin Urine WBC (Auto) Urine Total Protein Digoxin Salicylates Acetaminophen 12/23/19 12/24/19 12/24/19 17:53 00:48 04:20 WBC Hgb Hct MCV MCH MCHC RDW Lymph % (Auto) Wayne % (Auto) Eos % (Auto) Lymph # Wayne # Seg Neutrophils % Monocytes % (Manual) Monocytes # (Manual) D-Dimer ABG pH ABG pO2 ABG HCO3 30.4 H ABG O2 Saturation ABG Base Excess 3.9 H ABG Hemoglobin 10.3 L Oxyhemoglobin 94.4 L Sodium Potassium Chloride Carbon Dioxide BUN Creatinine Glucose POC Glucose 180 H 174 H Lactic Acid Calcium Magnesium AST ALT Lactate Dehydrogenase Total Creatine Kinase C-Reactive Protein Albumin Urine WBC (Auto) Urine Total Protein Digoxin Salicylates Acetaminophen 12/24/19 12/24/19 12/24/19 04:53 04:53 11:50 WBC Hgb 9.7 L Hct 33.2 L MCV MCH 25 L MCHC 29 L RDW 20.1 H Lymph % (Auto) Wayne % (Auto) Eos % (Auto) Lymph # Wayne # Seg Neutrophils % Monocytes % (Manual) 15.0 H Monocytes # (Manual) 0.9 H D-Dimer ABG pH ABG pO2 ABG HCO3 ABG O2 Saturation ABG Base Excess ABG Hemoglobin Oxyhemoglobin Sodium 163 H* Potassium 3.2 L Chloride 122.6 H Carbon Dioxide BUN Creatinine Glucose 168 H POC Glucose 190 H Lactic Acid Calcium Magnesium AST ALT Lactate Dehydrogenase Total Creatine Kinase C-Reactive Protein Albumin Urine WBC (Auto) Urine Total Protein Digoxin Salicylates Acetaminophen 12/24/19 12/24/19 12/24/19 15:00 16:28 21:15 WBC Hgb Hct MCV MCH MCHC RDW Lymph % (Auto) Wayne % (Auto) Eos % (Auto) Lymph # Wayne # Seg Neutrophils % Monocytes % (Manual) Monocytes # (Manual) D-Dimer ABG pH ABG pO2 ABG HCO3 ABG O2 Saturation ABG Base Excess ABG Hemoglobin Oxyhemoglobin Sodium 165 H* D 163 H* Potassium Chloride Carbon Dioxide BUN Creatinine Glucose POC Glucose 160 H Lactic Acid Calcium Magnesium AST ALT Lactate Dehydrogenase Total Creatine Kinase C-Reactive Protein Albumin Urine WBC (Auto) Urine Total Protein Digoxin Salicylates Acetaminophen 12/25/19 12/25/19 12/25/19 00:31 05:38 05:46 WBC Hgb 9.7 L Hct 32.5 L MCV MCH 25 L MCHC 30 L RDW 19.4 H Lymph % (Auto) Wayne % (Auto) Eos % (Auto) Lymph # Wayne # Seg Neutrophils % Monocytes % (Manual) Monocytes # (Manual) D-Dimer ABG pH ABG pO2 ABG HCO3 ABG O2 Saturation ABG Base Excess ABG Hemoglobin Oxyhemoglobin Sodium Potassium Chloride Carbon Dioxide BUN Creatinine Glucose POC Glucose 182 H 194 H Lactic Acid Calcium Magnesium AST ALT Lactate Dehydrogenase Total Creatine Kinase C-Reactive Protein Albumin Urine WBC (Auto) Urine Total Protein Digoxin Salicylates Acetaminophen 12/25/19 12/25/19 12/25/19 05:46 11:35 11:38 WBC Hgb Hct MCV MCH MCHC RDW Lymph % (Auto) Wayne % (Auto) Eos % (Auto) Lymph # Wayne # Seg Neutrophils % Monocytes % (Manual) Monocytes # (Manual) D-Dimer ABG pH 7.330 L ABG pO2 65.7 L ABG HCO3 32.6 H ABG O2 Saturation 92.5 L ABG Base Excess 5.3 H ABG Hemoglobin 10.4 L Oxyhemoglobin 90.0 L Sodium 166 H* Potassium 2.9 L* Chloride 124.5 H Carbon Dioxide BUN Creatinine Glucose 190 H POC Glucose 192 H Lactic Acid Calcium Magnesium AST ALT Lactate Dehydrogenase Total Creatine Kinase C-Reactive Protein Albumin Urine WBC (Auto) Urine Total Protein Digoxin Salicylates Acetaminophen 12/25/19 12/25/19 12/25/19 13:01 16:45 17:20 WBC Hgb Hct MCV MCH MCHC RDW Lymph % (Auto) Wayne % (Auto) Eos % (Auto) Lymph # Wayne # Seg Neutrophils % Monocytes % (Manual) Monocytes # (Manual) D-Dimer ABG pH 7.296 L ABG pO2 101.5 H ABG HCO3 33.2 H ABG O2 Saturation ABG Base Excess 5.3 H ABG Hemoglobin 9.6 L Oxyhemoglobin 94.6 L Sodium 174 H* Potassium Chloride Carbon Dioxide BUN Creatinine Glucose POC Glucose Lactic Acid Calcium Magnesium AST ALT Lactate Dehydrogenase Total Creatine Kinase C-Reactive Protein Albumin Urine WBC (Auto) Urine Total Protein < 4 L Digoxin Salicylates Acetaminophen 12/25/19 12/25/19 12/26/19 17:48 18:50 00:43 WBC Hgb Hct MCV MCH MCHC RDW Lymph % (Auto) Wayne % (Auto) Eos % (Auto) Lymph # Wayne # Seg Neutrophils % Monocytes % (Manual) Monocytes # (Manual) D-Dimer ABG pH ABG pO2 ABG HCO3 ABG O2 Saturation ABG Base Excess ABG Hemoglobin Oxyhemoglobin Sodium 166 H* 164 H* Potassium Chloride 127.3 H Carbon Dioxide BUN Creatinine Glucose 220 H POC Glucose 252 H Lactic Acid Calcium Magnesium AST ALT Lactate Dehydrogenase Total Creatine Kinase C-Reactive Protein Albumin Urine WBC (Auto) Urine Total Protein Digoxin Salicylates Acetaminophen 12/26/19 12/26/19 12/26/19 05:31 08:07 08:07 WBC 4.3 L Hgb 9.6 L Hct 32.1 L MCV MCH 26 L MCHC 30 L RDW 20.5 H Lymph % (Auto) Wayne % (Auto) Eos % (Auto) Lymph # Wayne # Seg Neutrophils % Monocytes % (Manual) Monocytes # (Manual) D-Dimer ABG pH ABG pO2 ABG HCO3 ABG O2 Saturation ABG Base Excess ABG Hemoglobin Oxyhemoglobin Sodium 162 H* Potassium Chloride 122.1 H Carbon Dioxide BUN Creatinine Glucose 247 H POC Glucose 187 H Lactic Acid Calcium Magnesium AST ALT Lactate Dehydrogenase Total Creatine Kinase C-Reactive Protein Albumin Urine WBC (Auto) Urine Total Protein Digoxin Salicylates Acetaminophen 12/26/19 12/26/19 12/26/19 08:07 12:20 16:25 WBC Hgb Hct MCV MCH MCHC RDW Lymph % (Auto) Wayne % (Auto) Eos % (Auto) Lymph # Wayne # Seg Neutrophils % Monocytes % (Manual) Monocytes # (Manual) D-Dimer ABG pH 7.290 L ABG pO2 73.2 L ABG HCO3 33.2 H ABG O2 Saturation 94.9 L ABG Base Excess 5.2 H ABG Hemoglobin 10.0 L Oxyhemoglobin 92.5 L Sodium 159 H Potassium Chloride Carbon Dioxide BUN Creatinine Glucose POC Glucose 234 H Lactic Acid Calcium Magnesium AST ALT Lactate Dehydrogenase Total Creatine Kinase C-Reactive Protein Albumin Urine WBC (Auto) Urine Total Protein Digoxin Salicylates Acetaminophen 12/26/19 12/26/19 12/26/19 17:33 22:35 23:30 WBC Hgb Hct MCV MCH MCHC RDW Lymph % (Auto) Wayne % (Auto) Eos % (Auto) Lymph # Wayne # Seg Neutrophils % Monocytes % (Manual) Monocytes # (Manual) D-Dimer ABG pH ABG pO2 ABG HCO3 ABG O2 Saturation ABG Base Excess ABG Hemoglobin Oxyhemoglobin Sodium Potassium Chloride Carbon Dioxide BUN Creatinine Glucose POC Glucose 244 H 208 H 287 H Lactic Acid Calcium Magnesium AST ALT Lactate Dehydrogenase Total Creatine Kinase C-Reactive Protein Albumin Urine WBC (Auto) Urine Total Protein Digoxin Salicylates Acetaminophen 12/27/19 12/27/19 12/27/19 03:48 03:48 03:48 WBC Hgb 10.1 L Hct 35.4 L MCV MCH 25 L MCHC 29 L RDW 20.1 H Lymph % (Auto) Wayne % (Auto) Eos % (Auto) Lymph # Wayne # Seg Neutrophils % Monocytes % (Manual) Monocytes # (Manual) D-Dimer ABG pH ABG pO2 ABG HCO3 ABG O2 Saturation ABG Base Excess ABG Hemoglobin Oxyhemoglobin Sodium 160 H Potassium Chloride 118.8 H Carbon Dioxide 33 H BUN Creatinine Glucose 217 H POC Glucose Lactic Acid Calcium Magnesium 2.70 H AST ALT Lactate Dehydrogenase Total Creatine Kinase C-Reactive Protein Albumin Urine WBC (Auto) Urine Total Protein Digoxin Salicylates Acetaminophen 12/27/19 12/27/19 12/27/19 05:50 11:58 16:05 WBC Hgb Hct MCV MCH MCHC RDW Lymph % (Auto) Wayne % (Auto) Eos % (Auto) Lymph # Wayne # Seg Neutrophils % Monocytes % (Manual) Monocytes # (Manual) D-Dimer ABG pH 7.180 L* ABG pO2 73.6 L ABG HCO3 34.8 H ABG O2 Saturation 92.7 L ABG Base Excess 3.8 H ABG Hemoglobin 12.0 L Oxyhemoglobin 90.2 L Sodium Potassium Chloride Carbon Dioxide BUN Creatinine Glucose POC Glucose 224 H 218 H Lactic Acid Calcium Magnesium AST ALT Lactate Dehydrogenase Total Creatine Kinase C-Reactive Protein Albumin Urine WBC (Auto) Urine Total Protein Digoxin Salicylates Acetaminophen 12/27/19 12/27/19 12/27/19 18:05 19:50 21:53 WBC Hgb Hct MCV MCH MCHC RDW Lymph % (Auto) Wayne % (Auto) Eos % (Auto) Lymph # Wayne # Seg Neutrophils % Monocytes % (Manual) Monocytes # (Manual) D-Dimer ABG pH 7.328 L ABG pO2 49.9 L ABG HCO3 33.3 H ABG O2 Saturation 87.1 L ABG Base Excess 5.7 H ABG Hemoglobin 11.2 L Oxyhemoglobin 84.8 L Sodium Potassium Chloride Carbon Dioxide BUN Creatinine Glucose POC Glucose 214 H 178 H Lactic Acid Calcium Magnesium AST ALT Lactate Dehydrogenase Total Creatine Kinase C-Reactive Protein Albumin Urine WBC (Auto) Urine Total Protein Digoxin Salicylates Acetaminophen 12/28/19 12/28/19 12/28/19 00:42 04:37 04:37 WBC Hgb 9.8 L Hct 33.5 L MCV MCH 25 L MCHC 29 L RDW 21.1 H Lymph % (Auto) Wayne % (Auto) Eos % (Auto) Lymph # Wayne # Seg Neutrophils % Monocytes % (Manual) Monocytes # (Manual) D-Dimer ABG pH ABG pO2 ABG HCO3 ABG O2 Saturation ABG Base Excess ABG Hemoglobin Oxyhemoglobin Sodium 157 H Potassium 3.4 L Chloride 117.5 H Carbon Dioxide BUN Creatinine Glucose 193 H POC Glucose 157 H Lactic Acid Calcium Magnesium AST ALT Lactate Dehydrogenase Total Creatine Kinase C-Reactive Protein Albumin Urine WBC (Auto) Urine Total Protein Digoxin Salicylates Acetaminophen 12/28/19 12/28/19 12/28/19 04:52 05:19 12:05 WBC Hgb Hct MCV MCH MCHC RDW Lymph % (Auto) Wayne % (Auto) Eos % (Auto) Lymph # Wayne # Seg Neutrophils % Monocytes % (Manual) Monocytes # (Manual) D-Dimer ABG pH ABG pO2 51.7 L ABG HCO3 28.7 H ABG O2 Saturation 89.9 L ABG Base Excess 4.1 H ABG Hemoglobin 9.7 L Oxyhemoglobin 87.7 L Sodium Potassium Chloride Carbon Dioxide BUN Creatinine Glucose POC Glucose 202 H 248 H Lactic Acid Calcium Magnesium AST ALT Lactate Dehydrogenase Total Creatine Kinase C-Reactive Protein Albumin Urine WBC (Auto) Urine Total Protein Digoxin Salicylates Acetaminophen 12/28/19 12/28/19 12/28/19 18:11 21:15 23:22 WBC Hgb Hct MCV MCH MCHC RDW Lymph % (Auto) Wayne % (Auto) Eos % (Auto) Lymph # Wayne # Seg Neutrophils % Monocytes % (Manual) Monocytes # (Manual) D-Dimer ABG pH ABG pO2 ABG HCO3 ABG O2 Saturation ABG Base Excess ABG Hemoglobin Oxyhemoglobin Sodium Potassium Chloride Carbon Dioxide BUN Creatinine Glucose POC Glucose 226 H 217 H 227 H Lactic Acid Calcium Magnesium AST ALT Lactate Dehydrogenase Total Creatine Kinase C-Reactive Protein Albumin Urine WBC (Auto) Urine Total Protein Digoxin Salicylates Acetaminophen 12/29/19 12/29/19 12/29/19 04:09 04:59 04:59 WBC 11.1 H Hgb 9.3 L Hct 31.1 L MCV 81 L MCH 24 L MCHC 30 L RDW 19.9 H Lymph % (Auto) Wayne % (Auto) Eos % (Auto) Lymph # Wayne # Seg Neutrophils % Monocytes % (Manual) Monocytes # (Manual) D-Dimer ABG pH 7.473 H ABG pO2 126.1 H ABG HCO3 29.2 H ABG O2 Saturation ABG Base Excess 5.1 H ABG Hemoglobin 8.4 L Oxyhemoglobin Sodium 157 H Potassium 3.2 L Chloride 118.2 H Carbon Dioxide BUN Creatinine 1.7 H Glucose 229 H POC Glucose Lactic Acid Calcium Magnesium AST ALT Lactate Dehydrogenase Total Creatine Kinase C-Reactive Protein Albumin Urine WBC (Auto) Urine Total Protein Digoxin Salicylates Acetaminophen 12/29/19 12/29/19 12/29/19 05:15 12:13 17:59 WBC Hgb Hct MCV MCH MCHC RDW Lymph % (Auto) Wayne % (Auto) Eos % (Auto) Lymph # Wayne # Seg Neutrophils % Monocytes % (Manual) Monocytes # (Manual) D-Dimer ABG pH ABG pO2 ABG HCO3 ABG O2 Saturation ABG Base Excess ABG Hemoglobin Oxyhemoglobin Sodium Potassium Chloride Carbon Dioxide BUN Creatinine Glucose POC Glucose 221 H 392 H 365 H Lactic Acid Calcium Magnesium AST ALT Lactate Dehydrogenase Total Creatine Kinase C-Reactive Protein Albumin Urine WBC (Auto) Urine Total Protein Digoxin Salicylates Acetaminophen 12/29/19 12/29/19 12/30/19 20:25 23:38 04:45 WBC Hgb Hct MCV MCH MCHC RDW Lymph % (Auto) Wayne % (Auto) Eos % (Auto) Lymph # Wayne # Seg Neutrophils % Monocytes % (Manual) Monocytes # (Manual) D-Dimer ABG pH 7.261 L 7.343 L ABG pO2 60.3 L 54.3 L ABG HCO3 32.1 H 30.9 H ABG O2 Saturation 87.6 L 88.3 L ABG Base Excess 3.7 H 4.0 H ABG Hemoglobin 9.7 L 11.6 L Oxyhemoglobin 85.2 L 86.0 L Sodium Potassium Chloride Carbon Dioxide BUN Creatinine Glucose POC Glucose 402 H Lactic Acid Calcium Magnesium AST ALT Lactate Dehydrogenase Total Creatine Kinase C-Reactive Protein Albumin Urine WBC (Auto) Urine Total Protein Digoxin Salicylates Acetaminophen 12/30/19 12/30/19 12/30/19 05:06 05:06 05:06 WBC 11.7 H Hgb 9.4 L Hct 32.4 L MCV 83 L MCH 24 L MCHC 29 L RDW 20.2 H Lymph % (Auto) Wayne % (Auto) Eos % (Auto) Lymph # Wayne # Seg Neutrophils % Monocytes % (Manual) Monocytes # (Manual) D-Dimer ABG pH ABG pO2 ABG HCO3 ABG O2 Saturation ABG Base Excess ABG Hemoglobin Oxyhemoglobin Sodium 159 H Potassium 3.2 L Chloride 120.1 H Carbon Dioxide 31 H BUN Creatinine 1.9 H Glucose 404 H POC Glucose Lactic Acid Calcium Magnesium 2.60 H AST ALT Lactate Dehydrogenase Total Creatine Kinase C-Reactive Protein Albumin Urine WBC (Auto) Urine Total Protein Digoxin Salicylates Acetaminophen 12/30/19 12/30/19 12/30/19 06:26 12:29 13:44 WBC Hgb Hct MCV MCH MCHC RDW Lymph % (Auto) Wayne % (Auto) Eos % (Auto) Lymph # Wayne # Seg Neutrophils % Monocytes % (Manual) Monocytes # (Manual) D-Dimer ABG pH ABG pO2 ABG HCO3 ABG O2 Saturation ABG Base Excess ABG Hemoglobin Oxyhemoglobin Sodium Potassium Chloride Carbon Dioxide BUN Creatinine Glucose POC Glucose 399 H 469 H > 500 H Lactic Acid Calcium Magnesium AST ALT Lactate Dehydrogenase Total Creatine Kinase C-Reactive Protein Albumin Urine WBC (Auto) Urine Total Protein Digoxin Salicylates Acetaminophen 12/30/19 12/30/19 12/30/19 13:51 16:32 18:05 WBC Hgb Hct MCV MCH MCHC RDW Lymph % (Auto) Wayne % (Auto) Eos % (Auto) Lymph # Wayne # Seg Neutrophils % Monocytes % (Manual) Monocytes # (Manual) D-Dimer ABG pH ABG pO2 ABG HCO3 ABG O2 Saturation ABG Base Excess ABG Hemoglobin Oxyhemoglobin Sodium Potassium Chloride Carbon Dioxide BUN Creatinine Glucose POC Glucose > 500 H 445 H 429 H Lactic Acid Calcium Magnesium AST ALT Lactate Dehydrogenase Total Creatine Kinase C-Reactive Protein Albumin Urine WBC (Auto) Urine Total Protein Digoxin Salicylates Acetaminophen 12/30/19 12/30/19 12/31/19 21:42 Unknown 00:00 WBC Hgb Hct MCV MCH MCHC RDW Lymph % (Auto) Wayne % (Auto) Eos % (Auto) Lymph # Wayne # Seg Neutrophils % Monocytes % (Manual) Monocytes # (Manual) D-Dimer ABG pH ABG pO2 ABG HCO3 ABG O2 Saturation ABG Base Excess ABG Hemoglobin Oxyhemoglobin Sodium Potassium Chloride Carbon Dioxide BUN Creatinine Glucose 498 H POC Glucose 371 H 452 H Lactic Acid Calcium Magnesium AST ALT Lactate Dehydrogenase Total Creatine Kinase C-Reactive Protein Albumin Urine WBC (Auto) Urine Total Protein Digoxin Salicylates Acetaminophen 12/31/19 12/31/19 12/31/19 04:31 05:42 08:01 WBC Hgb Hct MCV MCH MCHC RDW Lymph % (Auto) Wayne % (Auto) Eos % (Auto) Lymph # Wayne # Seg Neutrophils % Monocytes % (Manual) Monocytes # (Manual) D-Dimer ABG pH 7.251 L ABG pO2 62.4 L ABG HCO3 31.1 H ABG O2 Saturation 88.7 L ABG Base Excess ABG Hemoglobin 8.7 L Oxyhemoglobin 86.4 L Sodium Potassium Chloride Carbon Dioxide BUN Creatinine Glucose POC Glucose 443 H 443 H Lactic Acid Calcium Magnesium AST ALT Lactate Dehydrogenase Total Creatine Kinase C-Reactive Protein Albumin Urine WBC (Auto) Urine Total Protein Digoxin Salicylates Acetaminophen 12/31/19 12/31/19 12/31/19 09:08 10:00 11:50 WBC Hgb Hct MCV MCH MCHC RDW Lymph % (Auto) Wayne % (Auto) Eos % (Auto) Lymph # Wayne # Seg Neutrophils % Monocytes % (Manual) Monocytes # (Manual) D-Dimer ABG pH 7.325 L ABG pO2 97.2 H ABG HCO3 30.1 H ABG O2 Saturation ABG Base Excess 3.4 H ABG Hemoglobin 8.3 L Oxyhemoglobin 94.7 L Sodium 151 H D Potassium 3.2 L Chloride 113.0 H Carbon Dioxide BUN 23 H Creatinine 1.8 H Glucose 373 H POC Glucose 465 H Lactic Acid Calcium Magnesium AST ALT Lactate Dehydrogenase Total Creatine Kinase C-Reactive Protein Albumin Urine WBC (Auto) Urine Total Protein Digoxin Salicylates Acetaminophen 12/31/19 12/31/19 12/31/19 12:25 13:33 18:30 WBC Hgb Hct MCV MCH MCHC RDW Lymph % (Auto) Wayne % (Auto) Eos % (Auto) Lymph # Wayne # Seg Neutrophils % Monocytes % (Manual) Monocytes # (Manual) D-Dimer ABG pH ABG pO2 ABG HCO3 ABG O2 Saturation ABG Base Excess ABG Hemoglobin Oxyhemoglobin Sodium Potassium Chloride Carbon Dioxide BUN Creatinine Glucose POC Glucose 379 H 311 H 349 H Lactic Acid Calcium Magnesium AST ALT Lactate Dehydrogenase Total Creatine Kinase C-Reactive Protein Albumin Urine WBC (Auto) Urine Total Protein Digoxin Salicylates Acetaminophen 12/31/19 12/31/19 01/01/20 22:29 23:30 02:58 WBC Hgb Hct MCV MCH MCHC RDW Lymph % (Auto) Wayne % (Auto) Eos % (Auto) Lymph # Wayne # Seg Neutrophils % Monocytes % (Manual) Monocytes # (Manual) D-Dimer ABG pH ABG pO2 ABG HCO3 ABG O2 Saturation ABG Base Excess ABG Hemoglobin Oxyhemoglobin Sodium Potassium Chloride Carbon Dioxide BUN Creatinine Glucose POC Glucose 256 H 266 H 248 H Lactic Acid Calcium Magnesium AST ALT Lactate Dehydrogenase Total Creatine Kinase C-Reactive Protein Albumin Urine WBC (Auto) Urine Total Protein Digoxin Salicylates Acetaminophen 01/01/20 01/01/20 01/01/20 04:19 06:56 10:52 WBC Hgb Hct MCV MCH MCHC RDW Lymph % (Auto) Wayne % (Auto) Eos % (Auto) Lymph # Wayne # Seg Neutrophils % Monocytes % (Manual) Monocytes # (Manual) D-Dimer ABG pH ABG pO2 90.7 H ABG HCO3 29.1 H ABG O2 Saturation ABG Base Excess 3.8 H ABG Hemoglobin 8.1 L Oxyhemoglobin 94.5 L Sodium Potassium Chloride Carbon Dioxide BUN Creatinine Glucose POC Glucose 303 H 244 H Lactic Acid Calcium Magnesium AST ALT Lactate Dehydrogenase Total Creatine Kinase C-Reactive Protein Albumin Urine WBC (Auto) Urine Total Protein Digoxin Salicylates Acetaminophen 01/01/20 01/01/20 13:39 14:49 WBC Hgb Hct MCV MCH MCHC RDW Lymph % (Auto) Wayne % (Auto) Eos % (Auto) Lymph # Wayne # Seg Neutrophils % Monocytes % (Manual) Monocytes # (Manual) D-Dimer ABG pH ABG pO2 ABG HCO3 ABG O2 Saturation ABG Base Excess ABG Hemoglobin Oxyhemoglobin Sodium 147 H Potassium Chloride 107.1 H Carbon Dioxide BUN 28 H Creatinine Glucose 207 H POC Glucose 263 H Lactic Acid Calcium Magnesium AST ALT Lactate Dehydrogenase Total Creatine Kinase C-Reactive Protein Albumin Urine WBC (Auto) Urine Total Protein Digoxin Salicylates Acetaminophen Chest x-ray: image reviewed Allied health notes reviewed: nursing
[2020-01-01] MEDS ORDERED: MAGNESIUM CITRATE 300 ML ORAL LIQD PO ONE (17:37)
[2020-01-01] MEDS: FLUCONAZOLE 200 MG 200 MG/100 ML BAG IV SCH (18:25)
[2020-01-01] MEDS: SIMETHICONE 80 MG CHEW TAB PO SCH (18:36)
--- NOTE | 2020-01-01 18:36 | XRay Report ---
ABDOMEN, SINGLE VIEW INDICATION / CLINICAL INFORMATION: Abdominal swelling. COMPARISON: 12/27/2019 FINDINGS: NG tube is present with the tip in the mid to distal portion of the stomach. Continues to be mildly gaseous distended loops of colon throughout the abdomen. The degree of distent ion appears slightly worse compared with 12/27/2019. I do not see any significant small bowel dilatati on or distention. There are a few small bowel loops seen in the peripheral left sided abdomen which p otentially could be within a hernia. No gas is present within the rectum. IMPRESSION: Questionable left-sided abdominal wall hernia. Worsening gaseous distention of large claire l loops but without suggestion for mechanical obstruction. Signer Name: Genevieve Lopez MD Signed: 01/01/2020 6:32 PM Workstation Name: [id number]
[2020-01-01] MEDS: POLYETHYLENE GLYCOL 3350 17 GM POWDER PO SCH (22:04)
[2020-01-01] MEDS: DOCUSATE SODIUM 100 MG/10 ML ORAL LIQD PO SCH (22:04)
[2020-01-02] MEDS: SIMETHICONE 80 MG CHEW TAB PO SCH ×4 (00:41→18:38)
[2020-01-02] MEDS: DOPamine/D5W 800 MG/250 ML 800 MG/250 ML BAG IV SCH ×2 (01:09→18:53)
[2020-01-02] MEDS: fentaNYL DRIP Premix 2,000 MCG/100 ML BAG IV SCH ×3 (01:31→18:39)
[2020-01-02] MEDS: INSULIN LISPRO 100 UNIT/ML SUB-Q SCH ×6 (02:40→21:40)
[2020-01-02 04:37] LABS: ABG Base Excess 5.5 mmol/L (-2.0-3.0); ABG HCO3 31.6 mmol/L (20.0-26.0); ABG Methemoglobin 0.6 % (0.0-1.5); ABG Oxygen Saturation 91.8 % (95.0-99.0); ABG PCO2 55.5 mm Hg; ABG PH 7.373 pH Units (7.350-7.450)
[2020-01-02 05:35] LABS: Basophils # (Auto) 0.1 K/mm3 (0.0-0.1); Basophils % (Auto) 0.8 % (0.0-1.8); Eosinophils # (Auto) 0.8 K/mm3 (0.0-0.4); Eosinophils % (Auto) 11.2 % (0.0-4.3); Hematocrit 26.9 % (35.5-45.6); Lymphocytes # (Auto) 1.4 K/mm3 (1.2-5.4); Lymphocytes % (Auto) 19.9 % (13.4-35.0); Mean Corpuscular HGB Conc 30 % (32-34); Mean Corpuscular Volume 81 fl (84-94); Monocytes # (Auto) 0.7 K/mm3 (0.0-0.8); Monocytes % (Auto) 9.4 % (0.0-7.3); Platelet Count 237 K/mm3 (140-440); Red Blood Count 3.31 M/mm3 (3.65-5.03); Red Cell Distribution Width 19.4 % (13.2-15.2)
[2020-01-02] MEDS: CEFEPIME/NS 2 GM/100 ML 2 GM/100 ML BAG IV SCH ×2 (06:03→18:40)
[2020-01-02] MEDS: LEVOTHYROXINE 88 MCG TAB PO SCH (06:03)
[2020-01-02] MEDS: IPRATROPIUM/ALBUTEROL SULFATE 3 ML AMPUL.NEB IH SCH ×3 (07:12→20:42)
--- NOTE | 2020-01-02 09:44 | Progress Note ---
Assessment and Plan Assessment and plan: 59-year-old male past medical history diastolic CHF, OHS, HTN, DM 2, hypothyroidism admitted with confusion after being found by a neighbor. On arrival patient was found to be lethargic, and in respiratory distress and hypoxic. Patient was intubated in the ER because of hypoxic respiratory failure. Also noted to be hypotensive, placed on pressor admitted to ICU. Patient is negative for COVID-19, being treated for bilateral pneumonia. JAGDEEP improved with IV fluid, ID and critical care following. Chest x-ray: Left lower lobe airspace disease CT chest: 1. Patchy bilateral nodular and consolidative airspace opacities which are nonspecific but likely related to the reported history of Covid. 2. Multiple enlarged partially visualized left supraclavicular and lower cervical chain lymph nodes. While these are nonspecific and may be reactive, a neoplastic process is possible, recommend short interval follow-up after patient recovers from the acute episode. / Acute hypoxic respiratory failure Likely from bilateral pneumonia and diastolic heart failure Patient intubated, placed on ventilatory support. critical care team consulted in ED. Patient is extubated, continue nebulizer breathing treatment and as needed biPAP We will also do a swallow eval / Sepsis with shock cont IV antibiotic therapy, IV fluid resuscitation therapy, monitor urine output every shift, maintain mean arterial blood pressure greater than or equal to 65, s/p IV pressor support. / Suspected 2019-nCoV infection -ruled out with 2 negative test / Diastolic CHF Preserved EF based on prior echocardiogram Monitor weight strict I's/O, daily weight, monitor urine output every shift, submental oxygen, blood pressure control. /JAGDEEP, due to vasomotor nephropathy, present on admission -Creatinine improving, -Likely due to severe sepsis and hypotension /hypernatremia, -due to dehydration and sepsis -change fluid to D5W - monitor BMP /Hypokalemia, replete / Diabetes type II Initiate tube feeding diet Sliding scale insulin, Accu-Chek, hypoglycemia protocol. / Hypothyroidism Synthroid therapy, supportive care. / Bilateral pneumonia Pneumonia protocol: IV antibiotic therapy with rocephin for total 7 days, pulse oximetry, /Cervical lymphadenopathy -Reactive versus infectious process versus malignancy -Need repeat scanning and further staging when medically more stable -Pulmonology and ID following / HTN (hypertension) -hold BP meds as patient is hypotensive Monitor blood pressure every shift, continue medical management. /History of obstructive sleep apnea -Patient currently on mechanical ventilation /Acute metabolic encephalopathy Secondary to hyponatremia. /Urinary retention, suspected in the ER -Patient having good urine output now, will hold any CT scan -Continue IV fluid / DVT prophylaxis SCD to bilateral lower extremities while in bed, prophylactic heparin 12/19/19: Negative for COVID-19, continue pressor and wean off as tolerated, continue IV antibiotic and follow cultures. 12/19: Weaned off from pressor, sodium 156>157>153 today, creatinine 1.4>1.2 >1.0. Continue IV fluid. Wean off from vent as tolerated. Follow ID recommendation 12/20: Extubated today, continue to monitor in the ICU overnight if clinically stable with transfer out to [facility]/telemetry tomorrow a.m.. Sodium 149 today, continue IV fluid and monitor BMP. Swallow eval, PT OT eval. 2nd text for covid is negative 12/21: transfer to [facility], start on gentle hydration. mechanical soft diet 12/22: placed back on bipap, Na 163 - start on D5W, monitor bmp 12/23: spoke to sister, updated [phone], also discussed Pulmonary, will likely need LTAC. Obtain Nephrology due to persistent Hypernatremia. Will start on free water and continue to monitor. Remains of restriants for safety due to intermittent confusion. 12/24: Still with intermittent encephalopathy. Requiring restraints. Hypernatremia still persist continue hypotonic solution. Nephrology consulted. Free water started this morning will increase dose. Replace potassium as hypokalemia still persist 12/26/19: Clinically improving, BIPAP now PRN AND HS, Na improving, continue renal follow up. I have called [facility] in case they would like to transfer the patient tested previously requested. 12/26: Hypernatermia still persist, had pulled out NGT yesterday, Continue free water, Continue Bipap, [place] states he is not yet stable for transfer. Although from our critical care team this patient has been cleared for to be able to transfer. 12/27: Patient reintubated due to hypoxia. Continue current management as outlined by digital imaging technician. Sodium is improving. Continue current management monitor ABG and intermittent chest x-ray. [facility] updated. Patient sister also updated. 12/28: Sepsis persist. Antibiotics adjusted.-start linezolid 600 mg IV q 12 hour. Will adjust insulin for better management of blood glucose. 12/29: Shock still persist Levophed adjusted upward. [place] advised patient not safe for travel at this time. Continue ventilatory support continue full support antibiotics adjusted by ID. Follow cultures 12/30: Still on the vent and pressors , Isolation secondary MRSA In sputum. 12/31: Continue current management, will need intermittent chest xray, adjust insulin For better blood glucose control. Check labs in am 01/01: KUB reviewed shows distended bowel with no no specific obstruction noted. We will hold tube feeds at this time place NG tube to low intermittent suction. Repeat chest x-ray in a.m. Hyponatremia is better kidney function appears to be improving continue to monitor. The high probability of a clinically significant, sudden or life threatening deterioration of the [renal, pulmonary] system(s) required my full and direct attention, intervention and personal management. The aggregate critical care time was [35] minutes. This time is in addition to time spent performing report ed procedures but includes the following: [x] Data Review and interpretation [x] Patient assessment and monitoring of vital signs [x] Documentation [x] Medication orders and management History Interval history: Patient seen and examined, still on full ventilatory support, increased oxygen demand and still on pressors, still with no bowel movement. Hospitalist Physical - Physical exam Narrative exam: GENERAL: well-developed obese white male lying on bed on restraints due to confusion and pulling. ETT HEENT: Normocephalic. Atraumatic. No conjunctival congestion or icterus. Pat ient has moist mucous membranes. ETT NECK: Supple. Trachea midline. CHEST/LUNGS: Coarse breath sound auscultated bilaterally, HEART/CARDIOVASCULAR: Regular in rate and rhythm. S1 and S2 positive. ABDOMEN: Abdomen is soft, distended nontender. Patient has normal bowel sounds. SKIN: There is no rash. Warm and dry. NEURO: follows some command, AMS, no focal deficits MUSCULOSKELETAL: No joint effusion or tenderness. EXTRIMITY: No edema, no cyanosis or clubbing. PSYCH: Sedated - Constitutional Vitals: Temp Pulse Resp BP Pulse Ox 99.1 F 76 24 96/46 90 01/02/20 08:00 01/02/20 09:00 01/02/20 09:00 01/02/20 09:00 01/02/20 09:00 General appearance: Present: severe distress HEART Score - HEART Score Troponin: Troponin T 0.011 ng/mL (0.00-0.029) 12/18/19 14:45 Results - Labs CBC & Chem 7: 01/02/20 05:00 01/01/20 14:49 Labs: Laboratory Last Values WBC 6.9 K/mm3 (4.5-11.0) 01/02/20 05:00 RBC 3.31 M/mm3 (3.65-5.03) L 01/02/20 05:00 Hgb 8.0 gm/dl (11.8-15.2) L 01/02/20 05:00 Hct 26.9 % (35.5-45.6) L 01/02/20 05:00 MCV 81 fl (84-94) L 01/02/20 05:00 MCH 24 pg (28-32) L 01/02/20 05:00 MCHC 30 % (32-34) L 01/02/20 05:00 RDW 19.4 % (13.2-15.2) H 01/02/20 05:00 Plt Count 237 K/mm3 (140-440) 01/02/20 05:00 Lymph % (Auto) 19.9 % (13.4-35.0) 01/02/20 05:00 [place] % (Auto) 9.4 % (0.0-7.3) H 01/02/20 05:00 Eos % (Auto) 11.2 % (0.0-4.3) H 01/02/20 05:00 Baso % (Auto) 0.8 % (0.0-1.8) 01/02/20 05:00 Lymph # 1.4 K/mm3 (1.2-5.4) 01/02/20 05:00 [place] # 0.7 K/mm3 (0.0-0.8) 01/02/20 05:00 Eos # 0.8 K/mm3 (0.0-0.4) H 01/02/20 05:00 Baso # 0.1 K/mm3 (0.0-0.1) 01/02/20 05:00 Add Manual Diff Complete 12/24/19 04:53 Total Counted 100 12/24/19 04:53 Seg Neutrophils % 58.7 % (40.0-70.0) 01/02/20 05:00 Seg Neuts % (Manual) 60.0 % (40.0-70.0) 12/24/19 04:53 Band Neutrophils % 0 % 12/24/19 04:53 Lymphocytes % (Manual) 20.0 % (13.4-35.0) 12/24/19 04:53 Reactive Lymphs % (Man) 0 % 12/24/19 04:53 Monocytes % (Manual) 15.0 % (0.0-7.3) H 12/24/19 04:53 Eosinophils % (Manual) 4.0 % (0.0-4.3) 12/24/19 04:53 Basophils % (Manual) 0 % (0.0-1.8) 12/24/19 04:53 Metamyelocytes % 1.0 % 12/24/19 04:53 Myelocytes % 0 % 12/24/19 04:53 Promyelocytes % 0 % 12/24/19 04:53 Blast Cells % 0 % 12/24/19 04:53 Nucleated RBC % Not Reportable 12/24/19 04:53 Seg Neutrophils # 4.0 K/mm3 (1.8-7.7) 01/02/20 05:00 Seg Neutrophils # Man 3.5 K/mm3 (1.8-7.7) 12/24/19 04:53 Band Neutrophils # 0.0 K/mm3 12/24/19 04:53 Lymphocytes # (Manual) 1.2 K/mm3 (1.2-5.4) 12/24/19 04:53 Abs React Lymphs (Man) 0.0 K/mm3 12/24/19 04:53 Monocytes # (Manual) 0.9 K/mm3 (0.0-0.8) H 12/24/19 04:53 Eosinophils # (Manual) 0.2 K/mm3 (0.0-0.4) 12/24/19 04:53 Basophils # (Manual) 0.0 K/mm3 (0.0-0.1) 12/24/19 04:53 Metamyelocytes # 0.1 K/mm3 12/24/19 04:53 Myelocytes # 0.0 K/mm3 12/24/19 04:53 Promyelocytes # 0.0 K/mm3 12/24/19 04:53 Blast Cells # 0.0 K/mm3 12/24/19 04:53 WBC Morphology Not Reportable 12/24/19 04:53 Hypersegmented Neuts Not Reportable 12/24/19 04:53 Hyposegmented Neuts Not Reportable 12/24/19 04:53 Hypogranular Neuts Not Reportable 12/24/19 04:53 Smudge Cells Not Reportable 12/24/19 04:53 Toxic Granulation Not Reportable 12/24/19 04:53 Toxic Vacuolation Not Reportable 12/24/19 04:53 Dohle Bodies Not Reportable 12/24/19 04:53 Pelger-Huet Anomaly Not Reportable 12/24/19 04:53 Mervin Rods Not Reportable 12/24/19 04:53 Platelet Estimate Consistent w auto 12/24/19 04:53 Clumped Platelets Not Reportable 12/24/19 04:53 Plt Clumps, EDTA Not Reportable 12/24/19 04:53 Large Platelets Not Reportable 12/24/19 04:53 Giant Platelets Not Reportable 12/24/19 04:53 Platelet Satelliting Not Reportable 12/24/19 04:53 Plt Morphology Comment Not Reportable 12/24/19 04:53 RBC Morphology Not Reportable 12/24/19 04:53 Dimorphic RBCs Not Reportable 12/24/19 04:53 Polychromasia Rare 12/24/19 04:53 Hypochromasia 1+ 12/24/19 04:53 Poikilocytosis Not Reportable 12/24/19 04:53 Anisocytosis 1+ 12/24/19 04:53 Microcytosis Few 12/24/19 04:53 Macrocytosis Not Reportable 12/24/19 04:53 Spherocytes Not Reportable 12/24/19 04:53 Pappenheimer Bodies Not Reportable 12/24/19 04:53 Sickle Cells Not Reportable 12/24/19 04:53 Target Cells Not Reportable 12/24/19 04:53 Tear Drop Cells Not Reportable 12/24/19 04:53 Ovalocytes Few 12/24/19 04:53 Helmet Cells Not Reportable 12/24/19 04:53 [place] Bodies Not Reportable 12/24/19 04:53 [place] Rings Not Reportable 12/24/19 04:53 [place] Cells Not Reportable 12/24/19 04:53 Bite Cells Not Reportable 12/24/19 04:53 Crenated Cell Not Reportable 12/24/19 04:53 Elliptocytes Not Reportable 12/24/19 04:53 Acanthocytes (Spur) Not Reportable 12/24/19 04:53 Rouleaux Not Reportable 12/24/19 04:53 Hemoglobin C Crystals Not Reportable 12/24/19 04:53 Schistocytes Not Reportable 12/24/19 04:53 Malaria parasites Not Reportable 12/24/19 04:53 Gianni Bodies Not Reportable 12/24/19 04:53 Hem Pathologist Commnt No 12/24/19 04:53 PT 14.0 Sec. (12.2-14.9) 12/18/19 14:45 INR 1.10 (0.87-1.13) 12/18/19 14:45 APTT 29.4 Sec. (24.2-36.6) 12/18/19 14:45 D-Dimer 534.45 ng/mlDDU (0-234) H 12/18/19 14:45 ABG pH 7.373 pH Units (7.350-7.450) 01/02/20 03:58 ABG pCO2 55.5 mm Hg 01/02/20 03:58 ABG pO2 63.0 mm Hg (80.0-90.0) L 01/02/20 03:58 ABG HCO3 31.6 mmol/L (20.0-26.0) H 01/02/20 03:58 ABG O2 Saturation 91.8 % (95.0-99.0) L 01/02/20 03:58 ABG O2 Content 10.9 (0.0-44) 01/02/20 03:58 ABG Base Excess 5.5 mmol/L (-2.0-3.0) H 01/02/20 03:58 ABG Hemoglobin 8.6 gm/dl (14.0-18.0) L 01/02/20 03:58 ABG Carboxyhemoglobin 1.9 % (0.0-5.0) 01/02/20 03:58 ABG Methemoglobin 0.6 % (0.0-1.5) 01/02/20 03:58 Oxyhemoglobin 89.6 % (95.0-99.0) L 01/02/20 03:58 FiO2 55 % 01/02/20 03:58 Sodium 147 mmol/L (137-145) H 01/01/20 14:49 Potassium 4.7 mmol/L (3.6-5.0) D 01/01/20 14:49 Chloride 107.1 mmol/L (98-107) H 01/01/20 14:49 Carbon Dioxide 27 mmol/L (22-30) 01/01/20 14:49 Anion Gap 18 mmol/L 01/01/20 14:49 BUN 28 mg/dL (9-20) H 01/01/20 14:49 Creatinine 1.5 mg/dL (0.8-1.5) 01/01/20 14:49 Estimated GFR 58 ml/min 01/01/20 14:49 BUN/Creatinine Ratio 19 % 01/01/20 14:49 Glucose 207 mg/dL (75-100) H 01/01/20 14:49 POC Glucose 189 (70-105) H 01/02/20 05:40 Lactic Acid 1.70 mmol/L (0.7-2.0) 12/30/19 05:06 Calcium 9.4 mg/dL (8.4-10.2) 01/01/20 14:49 Phosphorus 3.70 mg/dL (2.5-4.5) 12/27/19 03:48 Magnesium 2.60 mg/dL (1.7-2.3) H 12/30/19 05:06 Ferritin 83.4 ng/mL (13.0-400.0) 12/18/19 14:45 Total Bilirubin 0.30 mg/dL (0.1-1.2) 12/19/19 04:13 AST 85 units/L (5-40) H 12/19/19 04:13 ALT 61 units/L (7-56) H 12/19/19 04:13 Alkaline Phosphatase 80 units/L (35-129) 12/19/19 04:13 Ammonia 39.0 umol/L (25-60) 12/18/19 14:45 Lactate Dehydrogenase 235 units/L (91-180) H 12/18/19 14:45 Lactate Dehydrogenase 236 units/L (91-180) H 12/18/19 14:45 Total Creatine Kinase 40 units/L (55-170) L 12/18/19 14:45 Troponin T 0.011 ng/mL (0.00-0.029) 12/18/19 14:45 C-Reactive Protein 8.40 mg/dL (0.00-1.30) H 12/18/19 14:45 C-Reactive Protein 8.50 mg/dL (0.00-1.30) H 12/18/19 14:45 Total Protein 6.8 g/dL (6.3-8.2) 12/19/19 04:13 Albumin 3.0 g/dL (3.9-5) L 12/19/19 04:13 Albumin/Globulin Ratio 0.8 % 12/19/19 04:13 Procalcitonin 0.22 ng/mL (<0.15) 12/18/19 14:45 TSH 2.300 mlU/mL (0.270-4.200) 12/18/19 14:45 Urine Color Yellow (Yellow) 12/19/19 16:50 Urine Turbidity Clear (Clear) 12/19/19 16:50 Urine pH 5.0 (5.0-7.0) 12/19/19 16:50 Ur Specific [place] 1.010 (1.003-1.030) 12/19/19 16:50 Urine Protein <15 mg/dl mg/dL (Negative) 12/19/19 16:50 Urine Glucose (UA) 150 mg/dL (Negative) 12/19/19 16:50 Urine Ketones Neg mg/dL (Negative) 12/19/19 16:50 Urine Blood Neg (Negative) 12/19/19 16:50 Urine Nitrite Neg (Negative) 12/19/19 16:50 Urine Bilirubin Neg (Negative) 12/19/19 16:50 Urine Urobilinogen < 2.0 mg/dL (<2.0) 12/19/19 16:50 Ur Leukocyte Esterase Tr (Negative) 12/19/19 16:50 Urine WBC (Auto) 7.0 /HPF (0.0-6.0) H 12/19/19 16:50 Urine RBC (Auto) 4.0 /HPF (0.0-6.0) 12/19/19 16:50 U Epithel Cells (Auto) 1.0 /HPF (0-13.0) 12/19/19 16:50 Urine Bacteria (Auto) 1+ /HPF (Negative) 12/19/19 16:50 Urine Mucus Few /HPF 12/19/19 16:50 Urine Osmolality 140 Mosm/kg 12/25/19 16:45 Urine Creatinine < 4.2 mg/dL (0.1-20.0) 12/25/19 16:45 Urine Sodium 10 mmol/L 12/25/19 16:45 Urine Total Protein < 4 mg/dL (5-11.8) L 12/25/19 16:45 Digoxin 0.3 ng/mL (0.9-2.0) L 12/18/19 14:45 Salicylates < 0.3 mg/dL (2.8-20.0) L 12/18/19 14:45 Acetaminophen < 5.0 ug/mL (10.0-30.0) L 12/18/19 14:45 Plasma/Serum Alcohol < 0.01 % (0-0.07) 12/18/19 14:45 Coronavirus (PCR) Negative (Negative) 12/21/19 14:45 Blood Type A POSITIVE 12/18/19 14:45 Antibody Screen Negative 12/18/19 14:45 Microbiology: Microbiology 12/29/19 15:41 Peripheral/Venous Blood Culture - Preliminary NO GROWTH AFTER 72 HOURS 12/29/19 15:44 Peripheral/Venous Blood Culture - Preliminary NO GROWTH AFTER 72 HOURS 12/29/19 13:03 Peripheral/Venous Blood Culture - Preliminary NO GROWTH AFTER 72 HOURS 12/29/19 13:42 Peripheral/Venous Blood Culture - Preliminary NO GROWTH AFTER 72 HOURS - Diagnostic Impressions Diagnostic Impressions: Echocardiogram 12/28/19 14:07 Transthoracic Echocardiogram Indication: SOB BP: 95/51 HR: 99 Conclusions *The left ventricular chamber size is mildly dilated. *There is no left ventricular hypertrophy. *Global left ventricular systolic function is mildly decreased. *The estimated ejection fraction is 45-50%. *Abnormal left ventricular diastolic filling is observed, consistent with impaired relaxation. *The right ventricular global systolic function is mildly reduced. *The right ventricular systolic pressure is calculated at 53 mmHg. Findings Left Ventricle: The left ventricular chamber size is mildly dilated. There is no left ventricular hypertrophy. Global left ventricular systolic function is mildly decreased. The estimated ejection fraction is 45-50%. Abnormal left ventricular diastolic filling is observed, consistent with impaired relaxation. Left Atrium: The left atrial chamber size is normal. Right Ventricle: The right ventricular cavity size is normal. The right ventricular global systolic function is mildly reduced. Right Atrium: The right atrial cavity size is normal. Aortic Valve: The aortic valve leaflets are mildly thickened. There is no evidence of aortic regurgitation. Mitral Valve: The mitral valve leaflets are mildly thickened. There is no evidence of mitral regurgitation. Tricuspid Valve: The tricuspid valve leaflets are normal. There is mild tricuspid regurgitation. The right ventricular systolic pressure is calculated at 53 mmHg. Pulmonic Valve: The pulmonic valve appears normal. There is trace pulmonic regurgitation. Pericardium: There is no pericardial effusion. Aorta: The aorta appears normal. Venous: The inferior vena cava is dilated. Measurements Chambers 2D Name Value Normal Range IVSd (2D) 1.08 cm (0.6 - 1.1) LVPWd (2D) 1 cm (0.6 - 1.1) LVIDd (2D) 4.67 cm (3.7 - 5.6) LVIDs (2D) 3.89 cm (2 - 3.8) LV FS (2D) 16.76 % - EF Teichholz (2D) 35.14 % - Ao root diameter (2D) 2.86 cm (2 - 3.7) Volumes/Mass Name Value Normal Range LA ESV SP 4CH (A/L) 31.8 ml - LA ESV SP 2CH (A/L) 27.37 ml - LA ESV BP (A/L) 33.43 ml - LA ESV BP (A/L) index 14.11 ml/m2 - LA ESV SP 4CH (MOD) 26.83 ml - LA ESV SP 2CH (MOD) 29.59 ml - LA ESV BP (MOD) 30.47 ml - LA ESV BP (MOD) index 12.86 ml/m2 - Diastolic/Systolic Function Name Value Normal Range MV E-wave Vmax 0.39 m/sec - MV deceleration time 115.69 msec - MV A-wave Vmax 0.63 m/sec - MV E:A ratio 0.62 ratio - Aortic Valve Name Value Normal Range AV Vmax 1.14 m/sec - AV VTI 20.1 cm - AV peak gradient 5.17 mmHg - AV mean gradient 3.89 mmHg - LVOT diameter 2.02 cm - LVOT Vmax 0.99 m/sec - LVOT VTI 16.45 cm - LVOT peak gradient 3.95 mmHg - LVOT mean gradient 2.45 mmHg - SV LVOT 52.45 ml - RALPH (continuity Vmax) 2.78 cm2 - RALPH (continuity VTI) 2.61 cm2 - Tricuspid Valve Name Value Normal Range TR Vmax 3.36 m/sec - TR peak gradient 45 mmHg - RAP 8 mmHg - RVSP 53 mmHg - IVC diameter 2.33 cm (1.2 - 2.3) Pulmonic Valve/Qp:Qs Name Value Normal Range PV Vmax 0.89 m/sec - PV peak gradient 3.16 mmHg - ND end-diastolic Vmax 1.42 m/sec - PV acceleration time 79.92 msec - Sykes/IV: Voiding Method Condom Catheter IV Catheter Type [Right Upper PICC Line arm] IV Catheter Type [Right Leg] Intra-osseous IV Catheter Type [Right Wrist] Peripheral IV IV Catheter Type [Right Hand] INT / Saline Lock IV Catheter Type [Left Hand] INT / Saline Lock IV Catheter Type [Left Forearm INT / Saline Lock ] IV Catheter Type [Left Triple Lumen Cath Internal Jugular] Active Medications - Current Medications Current Medications: Generic Name Dose Route Start Last Admin Trade Name Freq PRN Reason Stop Dose Admin Acetaminophen 650 mg 12/29/19 09:21 12/29/19 09:26 Tylenol PO 650 mg Q4H PRN Administration Non Cardiac Pain or Temp>100.5 Albuterol/Ipratropium 1 ampul 12/18/19 14:00 01/02/20 07:12 Duoneb *Not For Prn Use* IH 1 ampul TIDRT SHANEL Administration Lipase/Protease/Amylase 1 each 12/19/19 08:29 Erendira Cabrera 10,500 Unit FEEDTUBE PRN PRN For Clogged Feeding Tube Aspirin 81 mg 12/19/19 10:00 01/01/20 11:21 Baby Aspirin PO 81 mg DAILY SHANEL Administration Docusate Sodium 100 mg 01/01/20 22:00 01/01/20 22:04 Colace PO 100 mg BID SHANEL Administration Famotidine 20 mg 12/20/19 10:00 01/01/20 22:04 Pepcid PO 20 mg BID SHANEL Administration Fentanyl 50 mcg 12/27/19 16:57 Sublimaze IV Q10MIN PRN ANALGESIA Folic Acid 1 mg 12/19/19 10:00 01/01/20 11:21 Folvite PO 1 mg DAILY SHANEL Administration Heparin Sodium (Porcine) 5,000 unit 12/18/19 22:00 01/01/20 22:04 Heparin SUB-Q 5,000 unit Q12HR SHANEL Administration Hydrophilic Ointment 1 applic 12/18/19 12:35 Vaseline Lip Therapy TP Q2HR PRN Dry Lips Fentanyl Citrate 2,000 mcg in 100 mls @ 5.85 mls/hr 12/27/19 17:00 01/02/20 01:31 Fentanyl Drip Premix IV 2 mcg/kg/hr TITR SHANEL 11.7 mls/hr Administration Protocol 1 MCG/KG/HR Norepinephrine 4 mg in 250 mls @ 7.5 mls/hr 12/28/19 15:00 12/31/19 18:12 Levophed Drip 4 Mg/Ns 250 Ml IV 0 mcg/min TITR SHANEL 0 mls/hr Titration Protocol 2 MCG/MIN Linezolid 600 mg in 300 mls @ 300 mls/hr 12/29/19 15:00 01/01/20 22:03 Zyvox 600mg/300ml IV 300 mls/hr Q12HR SHANEL Administration Protocol Vasopressin 20 unit/ Sodium 101 mls @ 9.09 mls/hr 12/30/19 12:30 01/01/20 13:44 Chloride IV 0 units/min TITR SHANEL 0 mls/hr Titration Protocol 0.03 UNITS/MIN Cefepime HCl 2 gm in 100 mls @ 200 mls/hr 12/30/19 18:00 01/02/20 06:03 Cefepime/Ns 2 Gm/100 Ml IV 200 mls/hr Q12H SHANEL Administration Protocol Fluconazole 200 mg in 100 mls @ 100 mls/hr 12/30/19 18:00 01/01/20 18:25 Diflucan IV 100 mls/hr Q24H SHANEL Administration Protocol Dopamine HCl/Dextrose 800 mg in 250 mls @ 4.388 mls/hr 12/31/19 16:00 01/02/20 09:09 Intropin Drip 800 Mg/D5w 250 Ml IV 6 mcg/kg/min TITR SHANEL 13.163 mls/hr Titration Protocol 2 MCG/KG/MIN Insulin Glargine 35 units 01/01/20 22:00 01/01/20 22:05 Lantus SUB-Q 35 units QHS SHANEL Administration Insulin Glargine 35 units 01/01/20 11:00 01/01/20 11:25 Lantus SUB-Q 35 units QAMDIAB SHANEL Administration Insulin Human Lispro 0 unit 12/31/19 14:00 01/02/20 06:03 Humalog SUB-Q 3 unit Q4HR SHANEL Administration Protocol Levothyroxine Sodium 88 mcg 12/19/19 06:00 01/02/20 06:03 Synthroid PO 88 mcg QAM@0600 SHANEL Administration Multi-Ingred Cream/Lotion/Oil/Oint 1 applic 12/18/19 12:35 Artificial Tears Ophth Oint OU Q4HR PRN Dry Eye(s) Polyethylene Glycol 17 gm 01/01/20 22:00 01/01/20 22:04 Miralax 3350 PO 17 gm QHS SHANEL Administration Potassium Chloride 40 meq 12/29/19 10:00 01/01/20 11:21 Potassium Chloride FEEDTUBE 40 meq QDAY SHANEL Administration Simethicone 160 mg 01/01/20 18:00 01/02/20 06:02 Mylicon PO 01/04/20 17:59 160 mg Q6H SHANEL Administration Simple Syrup 15 ml 12/19/19 08:29 Simple Syrup FEEDTUBE PRN PRN Hypoglycemia Simple Syrup 30 ml 12/19/19 08:29 Simple Syrup FEEDTUBE PRN PRN Hypoglycemia Sodium Bicarbonate 325 mg 12/19/19 08:29 Sodium Bicarbonate FEEDTUBE PRN PRN For Clogged Feeding Tube Sodium Chloride 10 ml 12/18/19 22:00 01/01/20 22:03 Sodium Chloride Flush Syringe 10 Ml IV 10 ml BID SHANEL Administration Sodium Chloride 10 ml 12/18/19 13:31 Sodium Chloride Flush Syringe 10 Ml IV PRN PRN LINE FLUSH Nutrition/Malnutrition Assess - Dietary Evaluation Nutrition/Malnutrition Findings: Nutrition Notes Start: 12/19/19 08:16 Freq: Status: Active Protocol: Document 12/30/19 12:15 LM (Rec: 12/30/19 12:19 LM [id number]) Nutrition Notes Initial or Follow up Reassessment Current Diagnosis Diabetes,Sepsis,Hypertension, Heart Failure,Respiratory Failure Other Pertinent Diagnosis Suspected COVID-19, pneu Current Diet Vital AF 1.2 at 65ml/hr Labs/Tests Na 159 K 3.2 Cr 1.9 POC glu 399 Pertinent Medications Levophed Humalog Height 6 ft 2 in Weight 117 kg [place] Body Weight (kg) 86.36 BMI 33.1 Subjective/Other Information Pt tolerating TF. Percent of energy/protein needs met: 94%/68% Burn Absent Trauma Absent Current % PO Negligible Minimum of two criteria No physical signs of malnutrition #1 Nutrition Diagnosis Inadequate oral intake Diagnosis Progress(for reassessment Continues documentation) Is patient on ventilator? Yes Is Patient Ambulatory and/or Out of Bed No REE-([facility]-confined to bed) 2469.960 Kcal/Kg value to use for calculation 17 Approximate Energy Requirements Using 1989 kcal/Kg Calculation Used for Recommendations Kcal/kg Additional Notes Protein: 172g (>/=2g/kg using IBW 86kg) Fluid 1ml/kcal Nutrition Intervention Change Diet Order: TF Nutrition Support: Vital AF 1.2 at 65ml/hr Flush 300ml q4h for hypernatremia Flush 100ml q4h once resolved Kcal 1,872 Protein (gm) 117 Fluid (mL) 1,265 Goal #1 TF tolerance Goal #2 Meet at least 75% of energy and protein needs Anticipated Discharge Needs: unable to determine at this time Follow-Up By: 01/04/20 Additional Comments F/U for TF tolerance
[2020-01-02] MEDS: LINEZOLID 600 MG/300 ML BAG IV SCH ×2 (10:22→21:26)
[2020-01-02] MEDS: POTASSIUM CHLORIDE 20 MEQ PACKET FEEDTUBE SCH (10:26)
[2020-01-02] MEDS: FOLIC ACID 1 MG TAB PO SCH (10:27)
[2020-01-02] MEDS: ASPIRIN 81 MG TAB CHEW PO SCH (10:27)
[2020-01-02] MEDS: HEPARIN 5,000 UNIT/1 ML VIAL SUB-Q SCH ×2 (10:27→21:26)
[2020-01-02] MEDS: FAMOTIDINE 20 MG TAB PO SCH ×2 (10:27→22:30)
[2020-01-02] MEDS: DOCUSATE SODIUM 100 MG/10 ML ORAL LIQD PO SCH ×2 (10:27→22:29)
[2020-01-02] MEDS: INSULIN GLARGINE 100 UNITS/ML SUB-Q SCH ×2 (10:30→22:29)
--- NOTE | 2020-01-02 11:27 | Progress Note ---
Assessment and Plan - Patient Problems (1) Acute kidney injury Current Visit: Yes Status: Acute Plan to address problem: Will monitor closely. Concerned for worsening pre-renal injury in setting of sepsis and hemodynamic instability and now with increasing pressor requirements. Avoid nephrotoxins, maintain MAP >65 mmHg. (2) Acute respiratory failure Current Visit: Yes Status: Acute Qualifiers: Plan to address problem: Now re-intubated. Chest xray reviewed. Management on vent per Pulmonary/ICU. (3) Hypernatremia Current Visit: Yes Status: Acute Plan to address problem: Increased FWF to 300 cc q 4hrs. Showing improvement at this time. (4) Diastolic CHF Current Visit: Yes Status: Acute Qualifiers: Heart failure chronicity: acute on chronic Qualified Code(s): I50.33 - Acute on chronic diastolic (congestive) heart failure Plan to address problem: Chest Xray is concerning for volume overload. IVF has been stopped at this time. (5) Hypokalemia Current Visit: Yes Status: Acute Plan to address problem: replete per protocol. Place on 40meq daily via NG tube. (6) Pneumonia Current Visit: No Status: Acute Qualifiers: Pneumonia type: due to unspecified organism Laterality: left Lung location: unspecified part of lung Qualified Code(s): J18.9 - Pneumonia, unspecified organism Plan to address problem: Management per primary/ICU team. Subjective Date of service: 01/02/20 Principal diagnosis: Ac. Hypoxemic Resp Failure; Septic Shock; Magdiel. PNA; PUI COVID-19; CHF; JOE Interval history: No acute issues from renal standpoint, remains on dopamine at 8mcg/kg/min. Serum sodium levels continue to show improvement. Increased abdominal distention noted, with KUB showing evidence of gassous distention of large bowel loops without obstruction. Objective - Vital Signs Vital signs: Vital Signs - 12hr 01/01/20 01/02/20 01/02/20 23:30 00:00 00:30 Temperature 98.4 F Pulse Rate 62 65 62 Pulse Rate [ Bilateral] Respiratory 24 24 24 Rate Respiratory Rate [Bilateral ] Blood Pressure 109/56 104/56 99/51 O2 Sat by Pulse 94 94 94 Oximetry 01/02/20 01/02/20 01/02/20 00:50 01:00 01:30 Temperature Pulse Rate 71 60 64 Pulse Rate [ Bilateral] Respiratory 24 24 Rate Respiratory Rate [Bilateral ] Blood Pressure 99/54 99/54 99/52 O2 Sat by Pulse 96 92 93 Oximetry 01/02/20 01/02/20 01/02/20 02:00 02:30 03:00 Temperature Pulse Rate 63 64 67 Pulse Rate [ Bilateral] Respiratory 24 24 24 Rate Respiratory Rate [Bilateral ] Blood Pressure 100/48 96/53 93/49 O2 Sat by Pulse 92 92 93 Oximetry 01/02/20 01/02/20 01/02/20 03:30 04:00 04:30 Temperature 98.8 F Pulse Rate 67 68 70 Pulse Rate [ Bilateral] Respiratory 24 24 24 Rate Respiratory Rate [Bilateral ] Blood Pressure 93/48 94/50 90/52 O2 Sat by Pulse 93 93 93 Oximetry 01/02/20 01/02/20 01/02/20 04:47 05:00 05:30 Temperature Pulse Rate 75 71 76 Pulse Rate [ Bilateral] Respiratory 23 24 Rate Respiratory Rate [Bilateral ] Blood Pressure 92/49 91/49 81/48 O2 Sat by Pulse 92 93 92 Oximetry 01/02/20 01/02/20 01/02/20 06:00 06:30 07:00 Temperature Pulse Rate 76 76 78 Pulse Rate [ Bilateral] Respiratory 24 24 23 Rate Respiratory Rate [Bilateral ] Blood Pressure 84/48 85/48 85/48 O2 Sat by Pulse 93 93 93 Oximetry 01/02/20 01/02/20 01/02/20 07:12 07:30 08:00 Temperature 99.1 F Pulse Rate 79 79 77 Pulse Rate [ 79 Bilateral] Respiratory 24 24 Rate Respiratory 24 Rate [Bilateral ] Blood Pressure 87/48 82/47 85/45 O2 Sat by Pulse 92 94 91 Oximetry 01/02/20 01/02/20 01/02/20 08:30 09:00 09:30 Temperature Pulse Rate 82 76 76 Pulse Rate [ Bilateral] Respiratory 24 24 24 Rate Respiratory Rate [Bilateral ] Blood Pressure 103/56 96/46 89/45 O2 Sat by Pulse 91 90 90 Oximetry 01/02/20 01/02/20 01/02/20 10:00 10:30 11:00 Temperature Pulse Rate 72 78 88 Pulse Rate [ Bilateral] Respiratory 24 24 19 Rate Respiratory Rate [Bilateral ] Blood Pressure 89/43 83/42 116/61 O2 Sat by Pulse 89 92 91 Oximetry - General Appearance General appearance: sedated on ventilator, intubated EENT: ATNC Neck: no JVD Respiratory: Present: Decreased Breath Sounds Cardiology: regular Gastrointestinal: distended Integumentary: no rash Musculoskeletal: deferred - Lab 01/02/20 05:00 01/01/20 14:49 Most recent lab results ABG pH 7.373 pH Units (7.350-7.450) 01/02/20 03:58 ABG pCO2 55.5 mm Hg 01/02/20 03:58 ABG pO2 63.0 mm Hg (80.0-90.0) L 01/02/20 03:58 ABG HCO3 31.6 mmol/L (20.0-26.0) H 01/02/20 03:58 ABG O2 Saturation 91.8 % (95.0-99.0) L 01/02/20 03:58 Calcium 9.4 mg/dL (8.4-10.2) 01/01/20 14:49 Phosphorus 3.70 mg/dL (2.5-4.5) 12/27/19 03:48 Magnesium 2.60 mg/dL (1.7-2.3) H 12/30/19 05:06 Urine Creatinine < 4.2 mg/dL (0.1-20.0) 12/25/19 16:45 Urine Sodium 10 mmol/L 12/25/19 16:45 Urine Total Protein < 4 mg/dL (5-11.8) L 12/25/19 16:45 - Allied health notes Allied health notes reviewed: nursing Medications & Allergies - Medications Allergies/Adverse Reactions: Allergies No Known Allergies Allergy (Unverified 12/19/19 01:31) Home Medications: Home Medications Medication Instructions Recorded Confirmed Last Taken Type Ipratropium/Albuterol Sulfate 1 ampul IH TIDRT #90 ampul.neb 06/02/19 12/28/19 Unknown Rx [DUONEB *Not for PRN Use*] Aspirin [Aspirin BABY CHEW TAB] 81 mg PO DAILY 06/03/19 12/28/19 3 Days Ago History ~05/31/19 Desmopressin [Ddavp] 0.2 mg PO BID 06/03/19 12/28/19 3 Days Ago History ~05/31/19 Digoxin [Lanoxin] 0.125 mg PO DAILY 06/03/19 12/28/19 3 Days Ago History ~05/31/19 Folic Acid 100 mg PO DAILY 06/03/19 12/28/19 3 Days Ago History ~05/31/19 Furosemide [Lasix TAB] 40 mg PO QDAY 06/03/19 12/28/19 3 Days Ago History ~05/31/19 Insulin Lispro [Humalog 100 4 units SQ AC 06/03/19 12/28/19 3 Days Ago History UNITS/ML Kwikpen] ~05/31/19 Levothyroxine [Synthroid] 88 mcg PO QAM 06/03/19 12/28/19 3 Days Ago History ~05/31/19 Metformin HCl [metFORMIN] 1,000 mg PO BID 06/03/19 12/28/19 3 Days Ago History ~05/31/19 Potassium Chloride [K-Dur] 20 meq PO QDAY 06/03/19 12/28/19 3 Days Ago History ~05/31/19 carvediloL [Coreg] 6.25 mg PO BID 06/03/19 12/28/19 3 Days Ago History ~05/31/19 Famotidine [Pepcid] 20 mg PO QDAY #30 tablet 06/06/19 12/28/19 Unknown Rx Insulin NPH/Regular [NovoLIN 70/30] 50 unit SUB-Q BIDDIAB #100 units 06/06/19 12/28/19 Unknown Rx Active Medications: Generic Name Dose Route Start Last Admin Trade Name Freq PRN Reason Stop Dose Admin Acetaminophen 650 mg 12/29/19 09:21 12/29/19 09:26 Tylenol PO 650 mg Q4H PRN Administration Non Cardiac Pain or Temp>100.5 Albuterol/Ipratropium 1 ampul 12/18/19 14:00 01/02/20 07:12 Duoneb *Not For Prn Use* IH 1 ampul TIDRT SHANEL Administration Lipase/Protease/Amylase 1 each 12/19/19 08:29 Erendira Cabrera 10,500 Unit FEEDTUBE PRN PRN For Clogged Feeding Tube Aspirin 81 mg 12/19/19 10:00 01/02/20 10:27 Baby Aspirin PO 81 mg DAILY SHANEL Administration Docusate Sodium 100 mg 01/01/20 22:00 01/02/20 10:27 Colace PO 100 mg BID SHANEL Administration Famotidine 20 mg 12/20/19 10:00 01/02/20 10:27 Pepcid PO 20 mg BID SHANEL Administration Fentanyl 50 mcg 12/27/19 16:57 Sublimaze IV Q10MIN PRN ANALGESIA Folic Acid 1 mg 12/19/19 10:00 01/02/20 10:27 Folvite PO 1 mg DAILY SHANEL Administration Heparin Sodium (Porcine) 5,000 unit 12/18/19 22:00 01/02/20 10:27 Heparin SUB-Q 5,000 unit Q12HR SHANEL Administration Hydrophilic Ointment 1 applic 12/18/19 12:35 Vaseline Lip Therapy TP Q2HR PRN Dry Lips Fentanyl Citrate 2,000 mcg in 100 mls @ 5.85 mls/hr 12/27/19 17:00 01/02/20 01:31 Fentanyl Drip Premix IV 2 mcg/kg/hr TITR SHANEL 11.7 mls/hr Administration Protocol 1 MCG/KG/HR Norepinephrine 4 mg in 250 mls @ 7.5 mls/hr 12/28/19 15:00 12/31/19 18:12 Levophed Drip 4 Mg/Ns 250 Ml IV 0 mcg/min TITR SHANEL 0 mls/hr Titration Protocol 2 MCG/MIN Linezolid 600 mg in 300 mls @ 300 mls/hr 12/29/19 15:00 01/02/20 10:22 Zyvox 600mg/300ml IV 300 mls/hr Q12HR SHANEL Administration Protocol Vasopressin 20 unit/ Sodium 101 mls @ 9.09 mls/hr 12/30/19 12:30 01/01/20 13:44 Chloride IV 0 units/min TITR SHANEL 0 mls/hr Titration Protocol 0.03 UNITS/MIN Cefepime HCl 2 gm in 100 mls @ 200 mls/hr 12/30/19 18:00 01/02/20 06:03 Cefepime/Ns 2 Gm/100 Ml IV 200 mls/hr Q12H SHANEL Administration Protocol Fluconazole 200 mg in 100 mls @ 100 mls/hr 12/30/19 18:00 01/01/20 18:25 Diflucan IV 100 mls/hr Q24H SHANEL Administration Protocol Dopamine HCl/Dextrose 800 mg in 250 mls @ 4.388 mls/hr 12/31/19 16:00 01/02/20 10:20 Intropin Drip 800 Mg/D5w 250 Ml IV 8 mcg/kg/min TITR SHANEL 17.55 mls/hr Titration Protocol 2 MCG/KG/MIN Insulin Glargine 35 units 01/01/20 22:00 01/01/20 22:05 Lantus SUB-Q 35 units QHS SHANEL Administration Insulin Glargine 35 units 01/01/20 11:00 01/02/20 10:30 Lantus SUB-Q Not Given QAMDIAB SHANEL Insulin Human Lispro 0 unit 12/31/19 14:00 01/02/20 06:03 Humalog SUB-Q 3 unit Q4HR SHANEL Administration Protocol Levothyroxine Sodium 88 mcg 12/19/19 06:00 01/02/20 06:03 Synthroid PO 88 mcg QAM@0600 SHANEL Administration Multi-Ingred Cream/Lotion/Oil/Oint 1 applic 12/18/19 12:35 Artificial Tears Ophth Oint OU Q4HR PRN Dry Eye(s) Polyethylene Glycol 17 gm 01/01/20 22:00 01/01/20 22:04 Miralax 3350 PO 17 gm QHS SHANEL Administration Potassium Chloride 40 meq 12/29/19 10:00 01/02/20 10:26 Potassium Chloride FEEDTUBE 40 meq QDAY SHANEL Administration Simethicone 160 mg 01/01/20 18:00 01/02/20 06:02 Mylicon PO 01/04/20 17:59 160 mg Q6H SHANEL Administration Simple Syrup 15 ml 12/19/19 08:29 Simple Syrup FEEDTUBE PRN PRN Hypoglycemia Simple Syrup 30 ml 12/19/19 08:29 Simple Syrup FEEDTUBE PRN PRN Hypoglycemia Sodium Bicarbonate 325 mg 12/19/19 08:29 Sodium Bicarbonate FEEDTUBE PRN PRN For Clogged Feeding Tube Sodium Chloride 10 ml 12/18/19 22:00 01/02/20 10:28 Sodium Chloride Flush Syringe 10 Ml IV 10 ml BID SHANEL Administration Sodium Chloride 10 ml 12/18/19 13:31 Sodium Chloride Flush Syringe 10 Ml IV PRN PRN LINE FLUSH
--- NOTE | 2020-01-02 11:58 | Progress Note ---
Subjective Date of service: 01/02/20 Principal diagnosis: Ac. Hypoxemic Resp Failure; Septic Shock; Magdiel. PNA; PUI COVID-19; CHF; JOE Interval history: CONSULT DICTATED EPISODES OF S. JENNY NOTED EF 45-50 Objective Vital Signs Temp Pulse Pulse Resp Resp BP Pulse Ox 01/02/20 11:00 88 19 116/61 91 01/02/20 10:30 78 24 83/42 92 01/02/20 10:00 72 24 89/43 89 01/02/20 09:30 76 24 89/45 90 01/02/20 09:00 76 24 96/46 90 01/02/20 08:30 82 24 103/56 91 01/02/20 08:00 99.1 F 77 24 85/45 91 01/02/20 07:30 79 24 82/47 94 01/02/20 07:12 79 79 24 87/48 92 01/02/20 07:00 78 23 85/48 93 01/02/20 06:30 76 24 85/48 93 01/02/20 06:00 76 24 84/48 93 01/02/20 05:30 76 24 81/48 92 01/02/20 05:00 71 23 91/49 93 01/02/20 04:47 75 92/49 92 01/02/20 04:30 70 24 90/52 93 01/02/20 04:00 98.8 F 68 24 94/50 93 01/02/20 03:30 67 24 93/48 93 01/02/20 03:00 67 24 93/49 93 01/02/20 02:30 64 24 96/53 92 01/02/20 02:00 63 24 100/48 92 01/02/20 01:30 64 24 99/52 93 01/02/20 01:00 60 24 99/54 92 01/02/20 00:50 71 99/54 96 01/02/20 00:30 62 24 99/51 94 01/02/20 00:00 98.4 F 65 24 104/56 94 01/01/20 23:30 62 24 109/56 94 01/01/20 23:00 59 L 24 126/63 95 01/01/20 22:50 63 01/01/20 22:41 59 L 24 115/64 95 01/01/20 22:30 60 24 115/64 96 01/01/20 22:00 58 L 24 101/52 95 01/01/20 21:30 65 66 24 24 109/57 96 01/01/20 21:21 74 103/49 93 01/01/20 21:00 63 24 105/52 93 01/01/20 20:30 61 24 99/54 92 01/01/20 20:00 97.9 F 57 L 24 110/58 95 01/01/20 19:30 51 L 24 125/64 94 01/01/20 19:00 71 24 81/46 92 01/01/20 18:30 91 H 24 111/60 90 01/01/20 18:00 58 L 24 108/55 93 01/01/20 17:30 57 L 24 105/55 91 01/01/20 17:00 56 L 24 113/55 92 01/01/20 16:30 53 L 24 122/61 92 01/01/20 16:00 97.9 F 50 L 24 92/51 93 01/01/20 15:58 77 85/52 96 01/01/20 15:30 66 24 91/52 95 01/01/20 15:00 66 24 87/57 95 01/01/20 14:30 77 24 84/51 01/01/20 14:00 81 24 89/52 97 01/01/20 13:30 61 24 110/66 96 01/01/20 13:21 62 24 01/01/20 13:00 72 24 94/57 96 01/01/20 12:30 60 24 106/61 96 01/01/20 12:00 97.6 F 61 24 103/61 97 01/01/20 11:59 72 112/64 97 - Physical Examination Neck: Positive: neck supple - Labs and Meds CBC 01/02/20 Range/Units 05:00 WBC 6.9 (4.5-11.0) K/mm3 RBC 3.31 L (3.65-5.03) M/mm3 Hgb 8.0 L (11.8-15.2) gm/dl Hct 26.9 L (35.5-45.6) % Plt Count 237 (140-440) K/mm3 Lymph # 1.4 (1.2-5.4) K/mm3 [place]er # 0.7 (0.0-0.8) K/mm3 Eos # 0.8 H (0.0-0.4) K/mm3 Baso # 0.1 (0.0-0.1) K/mm3 Comprehensive Metabolic Panel 01/01/20 Range/Units 14:49 Sodium 147 H (137-145) mmol/L Potassium 4.7 D (3.6-5.0) mmol/L Chloride 107.1 H (98-107) mmol/L Carbon Dioxide 27 (22-30) mmol/L BUN 28 H (9-20) mg/dL Creatinine 1.5 (0.8-1.5) mg/dL Glucose 207 H (75-100) mg/dL Calcium 9.4 (8.4-10.2) mg/dL - Allied health notes Allied health notes reviewed: nursing
--- NOTE | 2020-01-02 14:20 | Progress Note ---
Assessment and Plan Cultures: Blood culture 12/18/2019 no growth today Urine culture 12/19/2019 no growth today Sputum culture 12/18/2019 no growth today Sputum culture 12/27/2019 MRSA Blood culture 12/18/2019 no growth today A/P: 59-year-old male past medical history diastolic CHF, OHS, HTN, DM 2, hypothyroidism #Sepsis with septic shock: now with fever 102.8 and pressors, source ? possible MRSA pneumonia, worsening on 2 pressors today #MRSA pneumonia: sputum 12/26 +MRSA #Acute hypoxic respiratory failure: remains intubated Fio2 45,p8. CXR with increased interstitial consolidation and effusions #Diabetes: Tight glycemic control. #Multiple chronic comorbidities #JAGDEEP: creat is up #CHF Recs: -f/u blood culture -continue cefepime and fluconazole -day 4 of 5 -continue linezolid 600 mg IV q 12 hour - day 5 of 10 -monitor creatinine guarded prognosis will follow Nellie Felton MD [facility] ([facility]) Office [phone] Subjective Date of service: 01/02/20 Principal diagnosis: Ac. Hypoxemic Resp Failure; Septic Shock; Ke[place]. PNA; PUI COVID-19; CHF; JOE Interval history: Patient remains critically ill intubated, no fever, remains on dopamine. Objective - Exam Narrative Exam: Constitutional: intubated sedated Head, Ears, Nose: Normocephalic, atraumatic. Eyes: Conjunctivae/corneas clear. No icterus. No ptosis. Oral: +ETT Cardiovascular: S1, S2 normal. Respiratory: Good air entry, clear to auscultation bilaterally GI: Soft, distended non-tender; bowel sounds normal. No peritoneal signs. Musculoskeletal:keiry leg edema Skin:groin irritation Hem/Lymphatic: No palpable cervical or supraclavicular nodes. No lymphangitis Neurological: sedated - Constitutional Vitals: Vital Signs Temp Pulse Resp BP Pulse Ox 99.6 F 76 24 96/49 92 01/02/20 12:00 01/02/20 13:30 01/02/20 13:30 01/02/20 13:30 01/02/20 13:30 Temperature -Last 24 Hours Temperature 99.6 F Temperature 99.1 F Temperature 98.8 F Temperature 98.4 F Temperature 97.9 F Temperature 97.9 F - Labs CBC & Chem 7: 01/02/20 05:00 01/01/20 14:49 Labs: Abnormal lab results 01/01/20 01/01/20 01/01/20 Range/Units 13:39 14:49 18:42 RBC (3.65-5.03) M/mm3 Hgb (11.8-15.2) gm/dl Hct (35.5-45.6) % MCV (84-94) fl MCH (28-32) pg MCHC (32-34) % RDW (13.2-15.2) % [place] % (Auto) (0.0-7.3) % Eos % (Auto) (0.0-4.3) % Eos # (0.0-0.4) K/mm3 ABG pO2 (80.0-90.0) mm Hg ABG HCO3 (20.0-26.0) mmol/L ABG O2 Saturation (95.0-99.0) % ABG Base Excess (-2.0-3.0) mmol/L ABG Hemoglobin (14.0-18.0) gm/dl Oxyhemoglobin (95.0-99.0) % Sodium 147 H (137-145) mmol/L Chloride 107.1 H (98-107) mmol/L BUN 28 H (9-20) mg/dL Glucose 207 H (75-100) mg/dL POC Glucose 263 H 188 H (70-105) 01/02/20 01/02/20 01/02/20 Range/Units 02:22 03:58 05:00 RBC 3.31 L (3.65-5.03) M/mm3 Hgb 8.0 L (11.8-15.2) gm/dl Hct 26.9 L (35.5-45.6) % MCV 81 L (84-94) fl MCH 24 L (28-32) pg MCHC 30 L (32-34) % RDW 19.4 H (13.2-15.2) % [place] % (Auto) 9.4 H (0.0-7.3) % Eos % (Auto) 11.2 H (0.0-4.3) % Eos # 0.8 H (0.0-0.4) K/mm3 ABG pO2 63.0 L (80.0-90.0) mm Hg ABG HCO3 31.6 H (20.0-26.0) mmol/L ABG O2 Saturation 91.8 L (95.0-99.0) % ABG Base Excess 5.5 H (-2.0-3.0) mmol/L ABG Hemoglobin 8.6 L (14.0-18.0) gm/dl Oxyhemoglobin 89.6 L (95.0-99.0) % Sodium (137-145) mmol/L Chloride (98-107) mmol/L BUN (9-20) mg/dL Glucose (75-100) mg/dL POC Glucose 196 H (70-105) 01/02/20 01/02/20 Range/Units 05:40 10:26 RBC (3.65-5.03) M/mm3 Hgb (11.8-15.2) gm/dl Hct (35.5-45.6) % MCV (84-94) fl MCH (28-32) pg MCHC (32-34) % RDW (13.2-15.2) % [place] % (Auto) (0.0-7.3) % Eos % (Auto) (0.0-4.3) % Eos # (0.0-0.4) K/mm3 ABG pO2 (80.0-90.0) mm Hg ABG HCO3 (20.0-26.0) mmol/L ABG O2 Saturation (95.0-99.0) % ABG Base Excess (-2.0-3.0) mmol/L ABG Hemoglobin (14.0-18.0) gm/dl Oxyhemoglobin (95.0-99.0) % Sodium (137-145) mmol/L Chloride (98-107) mmol/L BUN (9-20) mg/dL Glucose (75-100) mg/dL POC Glucose 189 H 157 H (70-105)
--- NOTE | 2020-01-02 15:06 | Progress Note ---
Assessment and Plan Acute Hypoxemic Respiratory Failure Severe Sepsis with Shock Bilateral Pneumonia PUI COVID-19 Morbid Obesity H/O CHF JOE - continue bowel regimen (simethicone 160 mg qid X 3 days then prn; docusate bid; miralax qhs & mag citrate X 1 dose now) - continue to wean vasopressors for MAP > 65 mmHg - continue care as below otherwise; - Daily SAT and SBT assessment as tolerated - accuchecks with glycemic control per SSI (While critically ill target blood glucose of 140-180 mg/dL; avoid hypoglycemia) - sedation for target RASS 0 to -1 - continue to wean supplemental oxygen for target O2 sat's > 92% acutely - continue bronchodilators with pulmonary hygiene per RT - VAP bundle addressed - lung protective strategies - wean per pulmonary driven protocols otherwise - continue to avoid benzodiazepine's, reduce the possibility of delirium - resume AB's per ID rec's - prn analgesia per CPOT score - Maintenance of sleep-wake cycle - continue to avoid benzodiazepine's, reduce the possibility of delirium - continue enteral nutritional support at goal rate as tolerated - G.I. & VTE prophylaxis - PT/OT/ROM exercises - continue mobility protocols for pressure ulcer prophylaxis - repeat COVID-19 test negative - continue aspiration precautions - continue accuchecks with glycemic control per SSI (While critically ill target blood glucose of 140-180 mg/dL; avoid hypoglycemia) - Monitor hemodynamics closely - continue other care per attending / other consultants - discharge planning ongoing concurrently - LTAC evaluation requested .... Re-evaluate in am & prn CONDITION: CRITICAL PROGNOSIS: GUARDED CODE STATUS: FULL CODE The high probability of a clinically significant, sudden or life-threatening deterioration of the [respiratory, cardiovascular, GI & neurologic] system(s) required my full and direct attention, intervention and personal management. The aggregate critical care time was [36] minutes without overlap. Time includes spent on; [x] Data Review and interpretation [x] Patient assessment and monitoring of vital signs [x] Documentation [x] Medication orders and management Subjective Date of service: 01/02/20 Principal diagnosis: Ac. Hypoxemic Resp Failure; Septic Shock; Magdiel. PNA; PUI COVID-19; CHF; JEO Interval history: Patient is seen today for: Acute Hypoxemic Respiratory Failure; Severe Sepsis with Shock; Bilateral Pneumonia; PUI COVID-19; Morbid Obesity; H/O CHF; JOE Seen and examined at bedside; 24hour events reviewed; nursing and respiratory care staff consulted; no adverse overnight events reported to me; resting peacefully in bed; remains on levophed; abdomen distended and tense; no new issues otherwise Objective Vital Signs - 12hr 01/02/20 01/02/20 01/02/20 03:30 04:00 04:30 Temperature 98.8 F Pulse Rate 67 68 70 Pulse Rate [ Bilateral] Respiratory 24 24 24 Rate Respiratory Rate [Bilateral ] Blood Pressure 93/48 94/50 90/52 O2 Sat by Pulse 93 93 93 Oximetry 01/02/20 01/02/20 01/02/20 04:47 05:00 05:30 Temperature Pulse Rate 75 71 76 Pulse Rate [ Bilateral] Respiratory 23 24 Rate Respiratory Rate [Bilateral ] Blood Pressure 92/49 91/49 81/48 O2 Sat by Pulse 92 93 92 Oximetry 01/02/20 01/02/20 01/02/20 06:00 06:30 07:00 Temperature Pulse Rate 76 76 78 Pulse Rate [ Bilateral] Respiratory 24 24 23 Rate Respiratory Rate [Bilateral ] Blood Pressure 84/48 85/48 85/48 O2 Sat by Pulse 93 93 93 Oximetry 01/02/20 01/02/20 01/02/20 07:12 07:30 08:00 Temperature 99.1 F Pulse Rate 79 79 77 Pulse Rate [ 79 Bilateral] Respiratory 24 24 Rate Respiratory 24 Rate [Bilateral ] Blood Pressure 87/48 82/47 85/45 O2 Sat by Pulse 92 94 91 Oximetry 01/02/20 01/02/20 01/02/20 08:30 09:00 09:30 Temperature Pulse Rate 82 76 76 Pulse Rate [ Bilateral] Respiratory 24 24 24 Rate Respiratory Rate [Bilateral ] Blood Pressure 103/56 96/46 89/45 O2 Sat by Pulse 91 90 90 Oximetry 01/02/20 01/02/20 01/02/20 10:00 10:30 11:00 Temperature Pulse Rate 72 78 88 Pulse Rate [ Bilateral] Respiratory 24 24 19 Rate Respiratory Rate [Bilateral ] Blood Pressure 89/43 83/42 116/61 O2 Sat by Pulse 89 92 91 Oximetry 01/02/20 01/02/20 01/02/20 11:30 12:00 12:04 Temperature 99.6 F Pulse Rate 87 82 85 Pulse Rate [ Bilateral] Respiratory 24 24 Rate Respiratory Rate [Bilateral ] Blood Pressure 116/59 101/53 104/53 O2 Sat by Pulse 92 90 91 Oximetry 01/02/20 01/02/20 01/02/20 12:30 13:00 13:30 Temperature Pulse Rate 78 77 76 Pulse Rate [ 82 Bilateral] Respiratory 24 24 24 Rate Respiratory 24 Rate [Bilateral ] Blood Pressure 97/49 97/49 96/49 O2 Sat by Pulse 90 90 92 Oximetry 01/02/20 01/02/20 14:00 14:30 Temperature Pulse Rate 80 79 Pulse Rate [ Bilateral] Respiratory 24 24 Rate Respiratory Rate [Bilateral ] Blood Pressure 105/58 90/50 O2 Sat by Pulse 90 92 Oximetry Constitutional: no acute distress, alert, other (elderly obese AAM with mildly increrased respiratory effort at rest on MVS) Eyes: non-icteric ENT: oropharynx moist, other (ETT 24 cm KOLBY) Neck: supple, no lymphadenopathy, no JVD Effort: mildly labored Ascultation: Bilateral: diminished breath sounds, rhonchi Percussion: Bilateral: not dull Cardiovascular: regular rate and rhythm, other (S1,S2) Gastrointestinal: normoactive bowel sounds, soft, non-tender, other (protuberant) Integumentary: rash (stasis dermatyitis) Extremities: no cyanosis, pink and warm, pulses normal, no ischemia or petechiae , edema (trace) Neurologic: normal mental status, non-focal exam, pupils equal and round, CN II- XII normal, motor strength normal and (obeys simple commands) Psychiatric: other (unable to assess re: AQMS) CBC and BMP: 01/06/20 04:58 01/06/20 04:58 ABG, PT/INR, D-dimer: ABG ABG pH 7.373 pH Units (7.350-7.450) 01/02/20 03:58 ABG pCO2 55.5 mm Hg 01/02/20 03:58 ABG pO2 63.0 mm Hg (80.0-90.0) L 01/02/20 03:58 ABG O2 Saturation 91.8 % (95.0-99.0) L 01/02/20 03:58 PT/INR, D-dimer PT 14.0 Sec. (12.2-14.9) 12/18/19 14:45 INR 1.10 (0.87-1.13) 12/18/19 14:45 D-Dimer 534.45 ng/mlDDU (0-234) H 12/18/19 14:45 Abnormal lab findings: Abnormal Labs 12/18/19 12/18/19 12/18/19 12:23 14:45 14:45 WBC RBC Hgb 10.4 L Hct 35.2 L MCV MCH 25 L MCHC 30 L RDW 18.8 H Lymph % (Auto) Dixon % (Auto) 11.6 H Eos % (Auto) 4.8 H Lymph # Dixon # 1.0 H Eos # Seg Neutrophils % Monocytes % (Manual) Monocytes # (Manual) D-Dimer ABG pH ABG pO2 ABG HCO3 ABG O2 Saturation ABG Base Excess ABG Hemoglobin Oxyhemoglobin Sodium Potassium Chloride Carbon Dioxide BUN Creatinine Glucose POC Glucose 328 H Lactic Acid Calcium Magnesium AST ALT Lactate Dehydrogenase Total Creatine Kinase 40 L C-Reactive Protein Albumin Urine WBC (Auto) Urine Total Protein Digoxin Salicylates Acetaminophen 12/18/19 12/18/19 12/18/19 14:45 14:45 14:45 WBC RBC Hgb Hct MCV MCH MCHC RDW Lymph % (Auto) Dixon % (Auto) Eos % (Auto) Lymph # Dixon # Eos # Seg Neutrophils % Monocytes % (Manual) Monocytes # (Manual) D-Dimer 534.45 H ABG pH ABG pO2 ABG HCO3 ABG O2 Saturation ABG Base Excess ABG Hemoglobin Oxyhemoglobin Sodium 156 H Potassium Chloride 112.3 H Carbon Dioxide 31 H BUN 32 H Creatinine Glucose 328 H POC Glucose Lactic Acid Calcium Magnesium AST ALT Lactate Dehydrogenase 235 H Total Creatine Kinase C-Reactive Protein 8.50 H Albumin 3.6 L Urine WBC (Auto) Urine Total Protein Digoxin 0.3 L Salicylates < 0.3 L Acetaminophen 12/18/19 12/18/19 12/18/19 14:45 14:45 16:00 WBC RBC Hgb Hct MCV MCH MCHC RDW Lymph % (Auto) Dixon % (Auto) Eos % (Auto) Lymph # Dixon # Eos # Seg Neutrophils % Monocytes % (Manual) Monocytes # (Manual) D-Dimer ABG pH ABG pO2 69.8 L ABG HCO3 31.8 H ABG O2 Saturation ABG Base Excess 5.4 H ABG Hemoglobin 10.0 L Oxyhemoglobin 92.9 L Sodium Potassium Chloride Carbon Dioxide BUN Creatinine Glucose 314 H POC Glucose Lactic Acid Calcium Magnesium AST ALT Lactate Dehydrogenase 236 H Total Creatine Kinase C-Reactive Protein 8.40 H Albumin Urine WBC (Auto) Urine Total Protein Digoxin Salicylates Acetaminophen < 5.0 L 12/18/19 12/18/19 12/18/19 16:35 18:30 22:56 WBC RBC Hgb Hct MCV MCH MCHC RDW Lymph % (Auto) Dixon % (Auto) Eos % (Auto) Lymph # Dixon # Eos # Seg Neutrophils % Monocytes % (Manual) Monocytes # (Manual) D-Dimer ABG pH ABG pO2 ABG HCO3 ABG O2 Saturation ABG Base Excess ABG Hemoglobin Oxyhemoglobin Sodium Potassium Chloride Carbon Dioxide BUN Creatinine Glucose POC Glucose 310 H 353 H Lactic Acid 2.50 H* Calcium Magnesium AST ALT Lactate Dehydrogenase Total Creatine Kinase C-Reactive Protein Albumin Urine WBC (Auto) Urine Total Protein Digoxin Salicylates Acetaminophen 12/19/19 12/19/19 12/19/19 04:13 04:13 06:00 WBC RBC Hgb 10.0 L Hct 34.2 L MCV MCH 25 L MCHC 29 L RDW 19.0 H Lymph % (Auto) Dixon % (Auto) 10.1 H Eos % (Auto) Lymph # Dixon # 1.1 H Eos # Seg Neutrophils % 71.8 H Monocytes % (Manual) Monocytes # (Manual) D-Dimer ABG pH ABG pO2 186.5 H ABG HCO3 27.8 H ABG O2 Saturation 99.1 H ABG Base Excess ABG Hemoglobin 10.4 L Oxyhemoglobin Sodium 157 H Potassium Chloride 119.1 H Carbon Dioxide BUN 26 H Creatinine Glucose 302 H POC Glucose Lactic Acid Calcium 7.9 L Magnesium AST 85 H ALT 61 H Lactate Dehydrogenase Total Creatine Kinase C-Reactive Protein Albumin 3.0 L Urine WBC (Auto) Urine Total Protein Digoxin Salicylates Acetaminophen 12/19/19 12/19/19 12/19/19 08:30 11:55 16:50 WBC RBC Hgb Hct MCV MCH MCHC RDW Lymph % (Auto) Dixon % (Auto) Eos % (Auto) Lymph # Dixon # Eos # Seg Neutrophils % Monocytes % (Manual) Monocytes # (Manual) D-Dimer ABG pH ABG pO2 ABG HCO3 ABG O2 Saturation ABG Base Excess ABG Hemoglobin Oxyhemoglobin Sodium Potassium Chloride Carbon Dioxide BUN Creatinine Glucose POC Glucose 264 H 251 H Lactic Acid Calcium Magnesium AST ALT Lactate Dehydrogenase Total Creatine Kinase C-Reactive Protein Albumin Urine WBC (Auto) 7.0 H Urine Total Protein Digoxin Salicylates Acetaminophen 12/19/19 12/19/19 12/20/19 17:41 23:42 03:35 WBC RBC Hgb Hct MCV MCH MCHC RDW Lymph % (Auto) Dixon % (Auto) Eos % (Auto) Lymph # Dixon # Eos # Seg Neutrophils % Monocytes % (Manual) Monocytes # (Manual) D-Dimer ABG pH ABG pO2 ABG HCO3 27.7 H ABG O2 Saturation ABG Base Excess ABG Hemoglobin 11.6 L Oxyhemoglobin 94.9 L Sodium Potassium Chloride Carbon Dioxide BUN Creatinine Glucose POC Glucose 180 H 205 H Lactic Acid Calcium Magnesium AST ALT Lactate Dehydrogenase Total Creatine Kinase C-Reactive Protein Albumin Urine WBC (Auto) Urine Total Protein Digoxin Salicylates Acetaminophen 12/20/19 12/20/19 12/20/19 04:45 04:45 05:27 WBC RBC Hgb 9.4 L Hct 31.4 L MCV MCH 25 L MCHC 30 L RDW 19.4 H Lymph % (Auto) Dixon % (Auto) 10.2 H Eos % (Auto) 6.0 H Lymph # 0.9 L Dixon # Eos # Seg Neutrophils % Monocytes % (Manual) Monocytes # (Manual) D-Dimer ABG pH ABG pO2 ABG HCO3 ABG O2 Saturation ABG Base Excess ABG Hemoglobin Oxyhemoglobin Sodium 153 H Potassium Chloride 114.6 H Carbon Dioxide BUN Creatinine Glucose 170 H POC Glucose 188 H Lactic Acid Calcium 7.9 L Magnesium AST ALT Lactate Dehydrogenase Total Creatine Kinase C-Reactive Protein Albumin Urine WBC (Auto) Urine Total Protein Digoxin Salicylates Acetaminophen 12/20/19 12/20/19 12/21/19 12:26 18:20 00:20 WBC RBC Hgb Hct MCV MCH MCHC RDW Lymph % (Auto) Dixon % (Auto) Eos % (Auto) Lymph # Dixon # Eos # Seg Neutrophils % Monocytes % (Manual) Monocytes # (Manual) D-Dimer ABG pH ABG pO2 ABG HCO3 ABG O2 Saturation ABG Base Excess ABG Hemoglobin Oxyhemoglobin Sodium Potassium Chloride Carbon Dioxide BUN Creatinine Glucose POC Glucose 200 H 263 H 218 H Lactic Acid Calcium Magnesium AST ALT Lactate Dehydrogenase Total Creatine Kinase C-Reactive Protein Albumin Urine WBC (Auto) Urine Total Protein Digoxin Salicylates Acetaminophen 12/21/19 12/21/19 12/21/19 04:38 05:26 12:35 WBC RBC Hgb Hct MCV MCH MCHC RDW Lymph % (Auto) Dixon % (Auto) Eos % (Auto) Lymph # Dixon # Eos # Seg Neutrophils % Monocytes % (Manual) Monocytes # (Manual) D-Dimer ABG pH ABG pO2 ABG HCO3 ABG O2 Saturation ABG Base Excess ABG Hemoglobin Oxyhemoglobin Sodium 149 H Potassium 3.5 L Chloride 110.5 H Carbon Dioxide BUN Creatinine Glucose 158 H POC Glucose 193 H 193 H Lactic Acid Calcium Magnesium AST ALT Lactate Dehydrogenase Total Creatine Kinase C-Reactive Protein Albumin Urine WBC (Auto) Urine Total Protein Digoxin Salicylates Acetaminophen 12/21/19 12/22/19 12/22/19 18:29 00:03 05:15 WBC RBC Hgb 10.3 L Hct 34.7 L MCV MCH 25 L MCHC 30 L RDW 19.4 H Lymph % (Auto) 9.0 L Dixon % (Auto) 12.3 H Eos % (Auto) 5.0 H Lymph # 0.5 L Dixon # Eos # Seg Neutrophils % 73.2 H Monocytes % (Manual) Monocytes # (Manual) D-Dimer ABG pH ABG pO2 ABG HCO3 ABG O2 Saturation ABG Base Excess ABG Hemoglobin Oxyhemoglobin Sodium Potassium Chloride Carbon Dioxide BUN Creatinine Glucose POC Glucose 186 H 143 H Lactic Acid Calcium Magnesium AST ALT Lactate Dehydrogenase Total Creatine Kinase C-Reactive Protein Albumin Urine WBC (Auto) Urine Total Protein Digoxin Salicylates Acetaminophen 12/22/19 12/22/19 12/22/19 05:15 06:02 12:13 WBC RBC Hgb Hct MCV MCH MCHC RDW Lymph % (Auto) Dixon % (Auto) Eos % (Auto) Lymph # Dixon # Eos # Seg Neutrophils % Monocytes % (Manual) Monocytes # (Manual) D-Dimer ABG pH ABG pO2 ABG HCO3 ABG O2 Saturation ABG Base Excess ABG Hemoglobin Oxyhemoglobin Sodium 152 H Potassium Chloride 113.5 H Carbon Dioxide BUN Creatinine Glucose 126 H POC Glucose 144 H 159 H Lactic Acid Calcium Magnesium AST ALT Lactate Dehydrogenase Total Creatine Kinase C-Reactive Protein Albumin Urine WBC (Auto) Urine Total Protein Digoxin Salicylates Acetaminophen 12/22/19 12/22/19 12/23/19 18:03 23:50 05:27 WBC RBC Hgb Hct MCV MCH MCHC RDW Lymph % (Auto) Dixon % (Auto) Eos % (Auto) Lymph # Dixon # Eos # Seg Neutrophils % Monocytes % (Manual) Monocytes # (Manual) D-Dimer ABG pH ABG pO2 ABG HCO3 ABG O2 Saturation ABG Base Excess ABG Hemoglobin Oxyhemoglobin Sodium Potassium Chloride Carbon Dioxide BUN Creatinine Glucose POC Glucose 140 H 227 H 185 H Lactic Acid Calcium Magnesium AST ALT Lactate Dehydrogenase Total Creatine Kinase C-Reactive Protein Albumin Urine WBC (Auto) Urine Total Protein Digoxin Salicylates Acetaminophen 12/23/19 12/23/19 12/23/19 12:13 16:05 16:40 WBC RBC Hgb Hct MCV MCH MCHC RDW Lymph % (Auto) Dixon % (Auto) Eos % (Auto) Lymph # Dixon # Eos # Seg Neutrophils % Monocytes % (Manual) Monocytes # (Manual) D-Dimer ABG pH 7.259 L ABG pO2 76.2 L ABG HCO3 30.6 H ABG O2 Saturation 94.6 L ABG Base Excess ABG Hemoglobin 11.5 L Oxyhemoglobin 92.2 L Sodium 163 H* D Potassium 3.4 L Chloride 120.1 H Carbon Dioxide BUN Creatinine Glucose 162 H POC Glucose 132 H Lactic Acid Calcium Magnesium AST ALT Lactate Dehydrogenase Total Creatine Kinase C-Reactive Protein Albumin Urine WBC (Auto) Urine Total Protein Digoxin Salicylates Acetaminophen 12/23/19 12/24/19 12/24/19 17:53 00:48 04:20 WBC RBC Hgb Hct MCV MCH MCHC RDW Lymph % (Auto) Dixon % (Auto) Eos % (Auto) Lymph # Dixon # Eos # Seg Neutrophils % Monocytes % (Manual) Monocytes # (Manual) D-Dimer ABG pH ABG pO2 ABG HCO3 30.4 H ABG O2 Saturation ABG Base Excess 3.9 H ABG Hemoglobin 10.3 L Oxyhemoglobin 94.4 L Sodium Potassium Chloride Carbon Dioxide BUN Creatinine Glucose POC Glucose 180 H 174 H Lactic Acid Calcium Magnesium AST ALT Lactate Dehydrogenase Total Creatine Kinase C-Reactive Protein Albumin Urine WBC (Auto) Urine Total Protein Digoxin Salicylates Acetaminophen 12/24/19 12/24/19 12/24/19 04:53 04:53 11:50 WBC RBC Hgb 9.7 L Hct 33.2 L MCV MCH 25 L MCHC 29 L RDW 20.1 H Lymph % (Auto) Dixon % (Auto) Eos % (Auto) Lymph # Dixon # Eos # Seg Neutrophils % Monocytes % (Manual) 15.0 H Monocytes # (Manual) 0.9 H D-Dimer ABG pH ABG pO2 ABG HCO3 ABG O2 Saturation ABG Base Excess ABG Hemoglobin Oxyhemoglobin Sodium 163 H* Potassium 3.2 L Chloride 122.6 H Carbon Dioxide BUN Creatinine Glucose 168 H POC Glucose 190 H Lactic Acid Calcium Magnesium AST ALT Lactate Dehydrogenase Total Creatine Kinase C-Reactive Protein Albumin Urine WBC (Auto) Urine Total Protein Digoxin Salicylates Acetaminophen 12/24/19 12/24/19 12/24/19 15:00 16:28 21:15 WBC RBC Hgb Hct MCV MCH MCHC RDW Lymph % (Auto) Dixon % (Auto) Eos % (Auto) Lymph # Dixon # Eos # Seg Neutrophils % Monocytes % (Manual) Monocytes # (Manual) D-Dimer ABG pH ABG pO2 ABG HCO3 ABG O2 Saturation ABG Base Excess ABG Hemoglobin Oxyhemoglobin Sodium 165 H* D 163 H* Potassium Chloride Carbon Dioxide BUN Creatinine Glucose POC Glucose 160 H Lactic Acid Calcium Magnesium AST ALT Lactate Dehydrogenase Total Creatine Kinase C-Reactive Protein Albumin Urine WBC (Auto) Urine Total Protein Digoxin Salicylates Acetaminophen 12/25/19 12/25/19 12/25/19 00:31 05:38 05:46 WBC RBC Hgb 9.7 L Hct 32.5 L MCV MCH 25 L MCHC 30 L RDW 19.4 H Lymph % (Auto) Dixon % (Auto) Eos % (Auto) Lymph # Dixon # Eos # Seg Neutrophils % Monocytes % (Manual) Monocytes # (Manual) D-Dimer ABG pH ABG pO2 ABG HCO3 ABG O2 Saturation ABG Base Excess ABG Hemoglobin Oxyhemoglobin Sodium Potassium Chloride Carbon Dioxide BUN Creatinine Glucose POC Glucose 182 H 194 H Lactic Acid Calcium Magnesium AST ALT Lactate Dehydrogenase Total Creatine Kinase C-Reactive Protein Albumin Urine WBC (Auto) Urine Total Protein Digoxin Salicylates Acetaminophen 12/25/19 12/25/19 12/25/19 05:46 11:35 11:38 WBC RBC Hgb Hct MCV MCH MCHC RDW Lymph % (Auto) Dixon % (Auto) Eos % (Auto) Lymph # Dixon # Eos # Seg Neutrophils % Monocytes % (Manual) Monocytes # (Manual) D-Dimer ABG pH 7.330 L ABG pO2 65.7 L ABG HCO3 32.6 H ABG O2 Saturation 92.5 L ABG Base Excess 5.3 H ABG Hemoglobin 10.4 L Oxyhemoglobin 90.0 L Sodium 166 H* Potassium 2.9 L* Chloride 124.5 H Carbon Dioxide BUN Creatinine Glucose 190 H POC Glucose 192 H Lactic Acid Calcium Magnesium AST ALT Lactate Dehydrogenase Total Creatine Kinase C-Reactive Protein Albumin Urine WBC (Auto) Urine Total Protein Digoxin Salicylates Acetaminophen 12/25/19 12/25/19 12/25/19 13:01 16:45 17:20 WBC RBC Hgb Hct MCV MCH MCHC RDW Lymph % (Auto) Dixon % (Auto) Eos % (Auto) Lymph # Dixon # Eos # Seg Neutrophils % Monocytes % (Manual) Monocytes # (Manual) D-Dimer ABG pH 7.296 L ABG pO2 101.5 H ABG HCO3 33.2 H ABG O2 Saturation ABG Base Excess 5.3 H ABG Hemoglobin 9.6 L Oxyhemoglobin 94.6 L Sodium 174 H* Potassium Chloride Carbon Dioxide BUN Creatinine Glucose POC Glucose Lactic Acid Calcium Magnesium AST ALT Lactate Dehydrogenase Total Creatine Kinase C-Reactive Protein Albumin Urine WBC (Auto) Urine Total Protein < 4 L Digoxin Salicylates Acetaminophen 12/25/19 12/25/19 12/26/19 17:48 18:50 00:43 WBC RBC Hgb Hct MCV MCH MCHC RDW Lymph % (Auto) Dixon % (Auto) Eos % (Auto) Lymph # Dixon # Eos # Seg Neutrophils % Monocytes % (Manual) Monocytes # (Manual) D-Dimer ABG pH ABG pO2 ABG HCO3 ABG O2 Saturation ABG Base Excess ABG Hemoglobin Oxyhemoglobin Sodium 166 H* 164 H* Potassium Chloride 127.3 H Carbon Dioxide BUN Creatinine Glucose 220 H POC Glucose 252 H Lactic Acid Calcium Magnesium AST ALT Lactate Dehydrogenase Total Creatine Kinase C-Reactive Protein Albumin Urine WBC (Auto) Urine Total Protein Digoxin Salicylates Acetaminophen 12/26/19 12/26/19 12/26/19 05:31 08:07 08:07 WBC 4.3 L RBC Hgb 9.6 L Hct 32.1 L MCV MCH 26 L MCHC 30 L RDW 20.5 H Lymph % (Auto) Dixon % (Auto) Eos % (Auto) Lymph # Dixon # Eos # Seg Neutrophils % Monocytes % (Manual) Monocytes # (Manual) D-Dimer ABG pH ABG pO2 ABG HCO3 ABG O2 Saturation ABG Base Excess ABG Hemoglobin Oxyhemoglobin Sodium 162 H* Potassium Chloride 122.1 H Carbon Dioxide BUN Creatinine Glucose 247 H POC Glucose 187 H Lactic Acid Calcium Magnesium AST ALT Lactate Dehydrogenase Total Creatine Kinase C-Reactive Protein Albumin Urine WBC (Auto) Urine Total Protein Digoxin Salicylates Acetaminophen 12/26/19 12/26/19 12/26/19 08:07 12:20 16:25 WBC RBC Hgb Hct MCV MCH MCHC RDW Lymph % (Auto) Dixon % (Auto) Eos % (Auto) Lymph # Dixon # Eos # Seg Neutrophils % Monocytes % (Manual) Monocytes # (Manual) D-Dimer ABG pH 7.290 L ABG pO2 73.2 L ABG HCO3 33.2 H ABG O2 Saturation 94.9 L ABG Base Excess 5.2 H ABG Hemoglobin 10.0 L Oxyhemoglobin 92.5 L Sodium 159 H Potassium Chloride Carbon Dioxide BUN Creatinine Glucose POC Glucose 234 H Lactic Acid Calcium Magnesium AST ALT Lactate Dehydrogenase Total Creatine Kinase C-Reactive Protein Albumin Urine WBC (Auto) Urine Total Protein Digoxin Salicylates Acetaminophen 12/26/19 12/26/19 12/26/19 17:33 22:35 23:30 WBC RBC Hgb Hct MCV MCH MCHC RDW Lymph % (Auto) Dixon % (Auto) Eos % (Auto) Lymph # Dixon # Eos # Seg Neutrophils % Monocytes % (Manual) Monocytes # (Manual) D-Dimer ABG pH ABG pO2 ABG HCO3 ABG O2 Saturation ABG Base Excess ABG Hemoglobin Oxyhemoglobin Sodium Potassium Chloride Carbon Dioxide BUN Creatinine Glucose POC Glucose 244 H 208 H 287 H Lactic Acid Calcium Magnesium AST ALT Lactate Dehydrogenase Total Creatine Kinase C-Reactive Protein Albumin Urine WBC (Auto) Urine Total Protein Digoxin Salicylates Acetaminophen 12/27/19 12/27/19 12/27/19 03:48 03:48 03:48 WBC RBC Hgb 10.1 L Hct 35.4 L MCV MCH 25 L MCHC 29 L RDW 20.1 H Lymph % (Auto) Dixon % (Auto) Eos % (Auto) Lymph # Dixon # Eos # Seg Neutrophils % Monocytes % (Manual) Monocytes # (Manual) D-Dimer ABG pH ABG pO2 ABG HCO3 ABG O2 Saturation ABG Base Excess ABG Hemoglobin Oxyhemoglobin Sodium 160 H Potassium Chloride 118.8 H Carbon Dioxide 33 H BUN Creatinine Glucose 217 H POC Glucose Lactic Acid Calcium Magnesium 2.70 H AST ALT Lactate Dehydrogenase Total Creatine Kinase C-Reactive Protein Albumin Urine WBC (Auto) Urine Total Protein Digoxin Salicylates Acetaminophen 12/27/19 12/27/19 12/27/19 05:50 11:58 16:05 WBC RBC Hgb Hct MCV MCH MCHC RDW Lymph % (Auto) Dixon % (Auto) Eos % (Auto) Lymph # Dixon # Eos # Seg Neutrophils % Monocytes % (Manual) Monocytes # (Manual) D-Dimer ABG pH 7.180 L* ABG pO2 73.6 L ABG HCO3 34.8 H ABG O2 Saturation 92.7 L ABG Base Excess 3.8 H ABG Hemoglobin 12.0 L Oxyhemoglobin 90.2 L Sodium Potassium Chloride Carbon Dioxide BUN Creatinine Glucose POC Glucose 224 H 218 H Lactic Acid Calcium Magnesium AST ALT Lactate Dehydrogenase Total Creatine Kinase C-Reactive Protein Albumin Urine WBC (Auto) Urine Total Protein Digoxin Salicylates Acetaminophen 12/27/19 12/27/19 12/27/19 18:05 19:50 21:53 WBC RBC Hgb Hct MCV MCH MCHC RDW Lymph % (Auto) Dixon % (Auto) Eos % (Auto) Lymph # [place] # Eos # Seg Neutrophils % Monocytes % (Manual) Monocytes # (Manual) D-Dimer ABG pH 7.328 L ABG pO2 49.9 L ABG HCO3 33.3 H ABG O2 Saturation 87.1 L ABG Base Excess 5.7 H ABG Hemoglobin 11.2 L Oxyhemoglobin 84.8 L Sodium Potassium Chloride Carbon Dioxide BUN Creatinine Glucose POC Glucose 214 H 178 H Lactic Acid Calcium Magnesium AST ALT Lactate Dehydrogenase Total Creatine Kinase C-Reactive Protein Albumin Urine WBC (Auto) Urine Total Protein Digoxin Salicylates Acetaminophen 12/28/19 12/28/19 12/28/19 00:42 04:37 04:37 WBC RBC Hgb 9.8 L Hct 33.5 L MCV MCH 25 L MCHC 29 L RDW 21.1 H Lymph % (Auto) Dixon % (Auto) Eos % (Auto) Lymph # Dixon # Eos # Seg Neutrophils % Monocytes % (Manual) Monocytes # (Manual) D-Dimer ABG pH ABG pO2 ABG HCO3 ABG O2 Saturation ABG Base Excess ABG Hemoglobin Oxyhemoglobin Sodium 157 H Potassium 3.4 L Chloride 117.5 H Carbon Dioxide BUN Creatinine Glucose 193 H POC Glucose 157 H Lactic Acid Calcium Magnesium AST ALT Lactate Dehydrogenase Total Creatine Kinase C-Reactive Protein Albumin Urine WBC (Auto) Urine Total Protein Digoxin Salicylates Acetaminophen 12/28/19 12/28/19 12/28/19 04:52 05:19 12:05 WBC RBC Hgb Hct MCV MCH MCHC RDW Lymph % (Auto) Dixon % (Auto) Eos % (Auto) Lymph # [place] # Eos # Seg Neutrophils % Monocytes % (Manual) Monocytes # (Manual) D-Dimer ABG pH ABG pO2 51.7 L ABG HCO3 28.7 H ABG O2 Saturation 89.9 L ABG Base Excess 4.1 H ABG Hemoglobin 9.7 L Oxyhemoglobin 87.7 L Sodium Potassium Chloride Carbon Dioxide BUN Creatinine Glucose POC Glucose 202 H 248 H Lactic Acid Calcium Magnesium AST ALT Lactate Dehydrogenase Total Creatine Kinase C-Reactive Protein Albumin Urine WBC (Auto) Urine Total Protein Digoxin Salicylates Acetaminophen 12/28/19 12/28/19 12/28/19 18:11 21:15 23:22 WBC RBC Hgb Hct MCV MCH MCHC RDW Lymph % (Auto) Dixon % (Auto) Eos % (Auto) Lymph # [place] # Eos # Seg Neutrophils % Monocytes % (Manual) Monocytes # (Manual) D-Dimer ABG pH ABG pO2 ABG HCO3 ABG O2 Saturation ABG Base Excess ABG Hemoglobin Oxyhemoglobin Sodium Potassium Chloride Carbon Dioxide BUN Creatinine Glucose POC Glucose 226 H 217 H 227 H Lactic Acid Calcium Magnesium AST ALT Lactate Dehydrogenase Total Creatine Kinase C-Reactive Protein Albumin Urine WBC (Auto) Urine Total Protein Digoxin Salicylates Acetaminophen 12/29/19 12/29/19 12/29/19 04:09 04:59 04:59 WBC 11.1 H RBC Hgb 9.3 L Hct 31.1 L MCV 81 L MCH 24 L MCHC 30 L RDW 19.9 H Lymph % (Auto) Dixon % (Auto) Eos % (Auto) Lymph # Dixon # Eos # Seg Neutrophils % Monocytes % (Manual) Monocytes # (Manual) D-Dimer ABG pH 7.473 H ABG pO2 126.1 H ABG HCO3 29.2 H ABG O2 Saturation ABG Base Excess 5.1 H ABG Hemoglobin 8.4 L Oxyhemoglobin Sodium 157 H Potassium 3.2 L Chloride 118.2 H Carbon Dioxide BUN Creatinine 1.7 H Glucose 229 H POC Glucose Lactic Acid Calcium Magnesium AST ALT Lactate Dehydrogenase Total Creatine Kinase C-Reactive Protein Albumin Urine WBC (Auto) Urine Total Protein Digoxin Salicylates Acetaminophen 12/29/19 12/29/19 12/29/19 05:15 12:13 17:59 WBC RBC Hgb Hct MCV MCH MCHC RDW Lymph % (Auto) Dixon % (Auto) Eos % (Auto) Lymph # Dixon # Eos # Seg Neutrophils % Monocytes % (Manual) Monocytes # (Manual) D-Dimer ABG pH ABG pO2 ABG HCO3 ABG O2 Saturation ABG Base Excess ABG Hemoglobin Oxyhemoglobin Sodium Potassium Chloride Carbon Dioxide BUN Creatinine Glucose POC Glucose 221 H 392 H 365 H Lactic Acid Calcium Magnesium AST ALT Lactate Dehydrogenase Total Creatine Kinase C-Reactive Protein Albumin Urine WBC (Auto) Urine Total Protein Digoxin Salicylates Acetaminophen 12/29/19 12/29/19 12/30/19 20:25 23:38 04:45 WBC RBC Hgb Hct MCV MCH MCHC RDW Lymph % (Auto) Dixon % (Auto) Eos % (Auto) Lymph # Dixon # Eos # Seg Neutrophils % Monocytes % (Manual) Monocytes # (Manual) D-Dimer ABG pH 7.261 L 7.343 L ABG pO2 60.3 L 54.3 L ABG HCO3 32.1 H 30.9 H ABG O2 Saturation 87.6 L 88.3 L ABG Base Excess 3.7 H 4.0 H ABG Hemoglobin 9.7 L 11.6 L Oxyhemoglobin 85.2 L 86.0 L Sodium Potassium Chloride Carbon Dioxide BUN Creatinine Glucose POC Glucose 402 H Lactic Acid Calcium Magnesium AST ALT Lactate Dehydrogenase Total Creatine Kinase C-Reactive Protein Albumin Urine WBC (Auto) Urine Total Protein Digoxin Salicylates Acetaminophen 12/30/19 12/30/19 12/30/19 05:06 05:06 05:06 WBC 11.7 H RBC Hgb 9.4 L Hct 32.4 L MCV 83 L MCH 24 L MCHC 29 L RDW 20.2 H Lymph % (Auto) Dixon % (Auto) Eos % (Auto) Lymph # Dixon # Eos # Seg Neutrophils % Monocytes % (Manual) Monocytes # (Manual) D-Dimer ABG pH ABG pO2 ABG HCO3 ABG O2 Saturation ABG Base Excess ABG Hemoglobin Oxyhemoglobin Sodium 159 H Potassium 3.2 L Chloride 120.1 H Carbon Dioxide 31 H BUN Creatinine 1.9 H Glucose 404 H POC Glucose Lactic Acid Calcium Magnesium 2.60 H AST ALT Lactate Dehydrogenase Total Creatine Kinase C-Reactive Protein Albumin Urine WBC (Auto) Urine Total Protein Digoxin Salicylates Acetaminophen 12/30/19 12/30/19 12/30/19 06:26 12:29 13:44 WBC RBC Hgb Hct MCV MCH MCHC RDW Lymph % (Auto) Dixon % (Auto) Eos % (Auto) Lymph # Dixon # Eos # Seg Neutrophils % Monocytes % (Manual) Monocytes # (Manual) D-Dimer ABG pH ABG pO2 ABG HCO3 ABG O2 Saturation ABG Base Excess ABG Hemoglobin Oxyhemoglobin Sodium Potassium Chloride Carbon Dioxide BUN Creatinine Glucose POC Glucose 399 H 469 H > 500 H Lactic Acid Calcium Magnesium AST ALT Lactate Dehydrogenase Total Creatine Kinase C-Reactive Protein Albumin Urine WBC (Auto) Urine Total Protein Digoxin Salicylates Acetaminophen 12/30/19 12/30/19 12/30/19 13:51 16:32 18:05 WBC RBC Hgb Hct MCV MCH MCHC RDW Lymph % (Auto) Dixon % (Auto) Eos % (Auto) Lymph # Dixon # Eos # Seg Neutrophils % Monocytes % (Manual) Monocytes # (Manual) D-Dimer ABG pH ABG pO2 ABG HCO3 ABG O2 Saturation ABG Base Excess ABG Hemoglobin Oxyhemoglobin Sodium Potassium Chloride Carbon Dioxide BUN Creatinine Glucose POC Glucose > 500 H 445 H 429 H Lactic Acid Calcium Magnesium AST ALT Lactate Dehydrogenase Total Creatine Kinase C-Reactive Protein Albumin Urine WBC (Auto) Urine Total Protein Digoxin Salicylates Acetaminophen 12/30/19 12/30/19 12/31/19 21:42 Unknown 00:00 WBC RBC Hgb Hct MCV MCH MCHC RDW Lymph % (Auto) Dixon % (Auto) Eos % (Auto) Lymph # Dixon # Eos # Seg Neutrophils % Monocytes % (Manual) Monocytes # (Manual) D-Dimer ABG pH ABG pO2 ABG HCO3 ABG O2 Saturation ABG Base Excess ABG Hemoglobin Oxyhemoglobin Sodium Potassium Chloride Carbon Dioxide BUN Creatinine Glucose 498 H POC Glucose 371 H 452 H Lactic Acid Calcium Magnesium AST ALT Lactate Dehydrogenase Total Creatine Kinase C-Reactive Protein Albumin Urine WBC (Auto) Urine Total Protein Digoxin Salicylates Acetaminophen 12/31/19 12/31/19 12/31/19 04:31 05:42 08:01 WBC RBC Hgb Hct MCV MCH MCHC RDW Lymph % (Auto) Dixon % (Auto) Eos % (Auto) Lymph # Dixon # Eos # Seg Neutrophils % Monocytes % (Manual) Monocytes # (Manual) D-Dimer ABG pH 7.251 L ABG pO2 62.4 L ABG HCO3 31.1 H ABG O2 Saturation 88.7 L ABG Base Excess ABG Hemoglobin 8.7 L Oxyhemoglobin 86.4 L Sodium Potassium Chloride Carbon Dioxide BUN Creatinine Glucose POC Glucose 443 H 443 H Lactic Acid Calcium Magnesium AST ALT Lactate Dehydrogenase Total Creatine Kinase C-Reactive Protein Albumin Urine WBC (Auto) Urine Total Protein Digoxin Salicylates Acetaminophen 12/31/19 12/31/19 12/31/19 09:08 10:00 11:50 WBC RBC Hgb Hct MCV MCH MCHC RDW Lymph % (Auto) Dixon % (Auto) Eos % (Auto) Lymph # Dixon # Eos # Seg Neutrophils % Monocytes % (Manual) Monocytes # (Manual) D-Dimer ABG pH 7.325 L ABG pO2 97.2 H ABG HCO3 30.1 H ABG O2 Saturation ABG Base Excess 3.4 H ABG Hemoglobin 8.3 L Oxyhemoglobin 94.7 L Sodium 151 H D Potassium 3.2 L Chloride 113.0 H Carbon Dioxide BUN 23 H Creatinine 1.8 H Glucose 373 H POC Glucose 465 H Lactic Acid Calcium Magnesium AST ALT Lactate Dehydrogenase Total Creatine Kinase C-Reactive Protein Albumin Urine WBC (Auto) Urine Total Protein Digoxin Salicylates Acetaminophen 12/31/19 12/31/19 12/31/19 12:25 13:33 18:30 WBC RBC Hgb Hct MCV MCH MCHC RDW Lymph % (Auto) Dixon % (Auto) Eos % (Auto) Lymph # Dixon # Eos # Seg Neutrophils % Monocytes % (Manual) Monocytes # (Manual) D-Dimer ABG pH ABG pO2 ABG HCO3 ABG O2 Saturation ABG Base Excess ABG Hemoglobin Oxyhemoglobin Sodium Potassium Chloride Carbon Dioxide BUN Creatinine Glucose POC Glucose 379 H 311 H 349 H Lactic Acid Calcium Magnesium AST ALT Lactate Dehydrogenase Total Creatine Kinase C-Reactive Protein Albumin Urine WBC (Auto) Urine Total Protein Digoxin Salicylates Acetaminophen 12/31/19 12/31/19 01/01/20 22:29 23:30 02:58 WBC RBC Hgb Hct MCV MCH MCHC RDW Lymph % (Auto) Dixon % (Auto) Eos % (Auto) Lymph # Dixon # Eos # Seg Neutrophils % Monocytes % (Manual) Monocytes # (Manual) D-Dimer ABG pH ABG pO2 ABG HCO3 ABG O2 Saturation ABG Base Excess ABG Hemoglobin Oxyhemoglobin Sodium Potassium Chloride Carbon Dioxide BUN Creatinine Glucose POC Glucose 256 H 266 H 248 H Lactic Acid Calcium Magnesium AST ALT Lactate Dehydrogenase Total Creatine Kinase C-Reactive Protein Albumin Urine WBC (Auto) Urine Total Protein Digoxin Salicylates Acetaminophen 01/01/20 01/01/20 01/01/20 04:19 06:56 10:52 WBC RBC Hgb Hct MCV MCH MCHC RDW Lymph % (Auto) Dixon % (Auto) Eos % (Auto) Lymph # Dixon # Eos # Seg Neutrophils % Monocytes % (Manual) Monocytes # (Manual) D-Dimer ABG pH ABG pO2 90.7 H ABG HCO3 29.1 H ABG O2 Saturation ABG Base Excess 3.8 H ABG Hemoglobin 8.1 L Oxyhemoglobin 94.5 L Sodium Potassium Chloride Carbon Dioxide BUN Creatinine Glucose POC Glucose 303 H 244 H Lactic Acid Calcium Magnesium AST ALT Lactate Dehydrogenase Total Creatine Kinase C-Reactive Protein Albumin Urine WBC (Auto) Urine Total Protein Digoxin Salicylates Acetaminophen 01/01/20 01/01/20 01/01/20 13:39 14:49 18:42 WBC RBC Hgb Hct MCV MCH MCHC RDW Lymph % (Auto) Dixon % (Auto) Eos % (Auto) Lymph # Dixon # Eos # Seg Neutrophils % Monocytes % (Manual) Monocytes # (Manual) D-Dimer ABG pH ABG pO2 ABG HCO3 ABG O2 Saturation ABG Base Excess ABG Hemoglobin Oxyhemoglobin Sodium 147 H Potassium Chloride 107.1 H Carbon Dioxide BUN 28 H Creatinine Glucose 207 H POC Glucose 263 H 188 H Lactic Acid Calcium Magnesium AST ALT Lactate Dehydrogenase Total Creatine Kinase C-Reactive Protein Albumin Urine WBC (Auto) Urine Total Protein Digoxin Salicylates Acetaminophen 01/02/20 01/02/20 01/02/20 02:22 03:58 05:00 WBC RBC 3.31 L Hgb 8.0 L Hct 26.9 L MCV 81 L MCH 24 L MCHC 30 L RDW 19.4 H Lymph % (Auto) Dixon % (Auto) 9.4 H Eos % (Auto) 11.2 H Lymph # Dixon # Eos # 0.8 H Seg Neutrophils % Monocytes % (Manual) Monocytes # (Manual) D-Dimer ABG pH ABG pO2 63.0 L ABG HCO3 31.6 H ABG O2 Saturation 91.8 L ABG Base Excess 5.5 H ABG Hemoglobin 8.6 L Oxyhemoglobin 89.6 L Sodium Potassium Chloride Carbon Dioxide BUN Creatinine Glucose POC Glucose 196 H Lactic Acid Calcium Magnesium AST ALT Lactate Dehydrogenase Total Creatine Kinase C-Reactive Protein Albumin Urine WBC (Auto) Urine Total Protein Digoxin Salicylates Acetaminophen 01/02/20 01/02/20 05:40 10:26 WBC RBC Hgb Hct MCV MCH MCHC RDW Lymph % (Auto) Dixon % (Auto) Eos % (Auto) Lymph # Dixon # Eos # Seg Neutrophils % Monocytes % (Manual) Monocytes # (Manual) D-Dimer ABG pH ABG pO2 ABG HCO3 ABG O2 Saturation ABG Base Excess ABG Hemoglobin Oxyhemoglobin Sodium Potassium Chloride Carbon Dioxide BUN Creatinine Glucose POC Glucose 189 H 157 H Lactic Acid Calcium Magnesium AST ALT Lactate Dehydrogenase Total Creatine Kinase C-Reactive Protein Albumin Urine WBC (Auto) Urine Total Protein Digoxin Salicylates Acetaminophen Allied health notes reviewed: nursing
[2020-01-02] MEDS: FLUCONAZOLE 200 MG 200 MG/100 ML BAG IV SCH (18:38)
[2020-01-02] MEDS: POLYETHYLENE GLYCOL 3350 17 GM POWDER PO SCH (22:30)
--- NOTE | 2020-01-02 23:44 | Consultation ---
HISTORY OF PRESENT ILLNESS: The patient is a 59-year-old male with multiple medical problems who was admitted with pneumonia and sepsis. He is on a mechanical ventilator and unable to give any history. He has a history of multiple medical problems including a history of diastolic heart failure, hypertension and diabetes. A Cardiology consult was requested because of episodes of bradycardia. He is currently receiving pressors. There is no description of coronary artery disease or chest pain. PAST HISTORY: MEDICATIONS: See the nurse's list. ALLERGIES: Unable to assess. SOCIAL HISTORY: Smoking: No history of smoking. Alcohol: No history of heavy alcohol use. FAMILY HISTORY: Diabetes and hypertension. PAST SURGICAL HISTORY: Cholecystectomy. REVIEW OF SYSTEMS: The patient normally goes to [facility]. There is a history of obesity and obesity hypoventilation syndrome. He had an altered mental status on presentation prior to intubation. PHYSICAL EXAMINATION: GENERAL: Well-developed, moderately obese, no acute distress, does not follow commands, on mechanical ventilation. EYES, NOSE, AND THROAT: Unremarkable. NECK: Reveals no JVD or bruits. Neck is supple, no masses. LUNGS: Bilateral rhonchi. HEART: Regular rhythm. No rubs, murmurs, gallops appreciable. ABDOMEN: Distended, diminished bowel sounds. No masses. EXTREMITIES: No cyanosis or clubbing. There is trace pedal edema. Peripheral pulses are intact. NEUROLOGIC: Deferred. EKG and rhythm strips: APCs and PVCs have been noted. Heart rates as low as 40 without pauses have been noted. EKG shows nonspecific ST-T changes. Echocardiogram: Done during this admission shows an EF of 45-50%. There is [id number] pulmonary hypertension. There is relatively mild RV dysfunction. IMPRESSION: 1. Transient sinus bradycardia with APCs and PVCs: No major rhythm issues. We will monitor the rhythm during his hospital stay. 2. Mild cardiomyopathy with [id number] pulmonary hypertension and mild right ventricular dysfunction. 3. History of diastolic heart failure: Does not appear to have volume overload at this time. 4. History of diabetes and hypertension. 5. Acute kidney injury. 6. Pneumonia with sepsis and hypotension, on pressors. 7. Obesity hypoventilation syndrome. 8. Anemia. 9. Abnormal electrolytes: With an elevated sodium and volume depletion is a possibility. 10. Unknown neuro status. PLAN: Monitor rhythm. Continue pressors. Repeat EKG. Correct electrolytes. Prognosis is guarded. We will follow the patient. WINIFRED: 01/02/2020 12:11 JOB# [id number] MACHO/SAROJ
[2020-01-03] MEDS: INSULIN LISPRO 100 UNIT/ML SUB-Q SCH ×6 (02:39→22:39)
[2020-01-03] MEDS: SIMETHICONE 80 MG CHEW TAB PO SCH ×5 (02:39→23:55)
[2020-01-03] MEDS: DOPamine/D5W 800 MG/250 ML 800 MG/250 ML BAG IV SCH ×3 (04:15→20:16)
[2020-01-03 04:16] LABS: ABG Base Excess 6.2 mmol/L (-2.0-3.0); ABG HCO3 30.4 mmol/L (20.0-26.0); ABG Methemoglobin 0.7 % (0.0-1.5); ABG Oxygen Saturation 98.1 % (95.0-99.0); ABG PCO2 42.5 mm Hg; ABG PH 7.473 pH Units (7.350-7.450); ABG PO2 109.6 mm Hg (80.0-90.0)
[2020-01-03] MEDS: CEFEPIME/NS 2 GM/100 ML 2 GM/100 ML BAG IV SCH (05:14)
--- NOTE | 2020-01-03 05:33 | XRay Report ---
SUPINE ABDOMEN INDICATION: Abdominal pain, distention. COMPARISON: 2 days prior FINDINGS: Esophagogastric tube is unchanged. There is diffuse gaseous distention of the colon, similar to the prior. IMPRESSION: 1. Persistent diffuse gaseous distention of the colon. CHEST 1 VIEW INDICATION: volume overload. COMPARISON: 12/30/2019 FINDINGS: Support devices: Unchanged. Heart: Stable. Lungs/Pleura: Pulmonary edema has worsened. There is a small left pleural effusion. IMPRESSION: 1. Worsening pulmonary edema. Signer Name: Donnell Sánchez MD Signed: 01/03/2020 5:29 AM Workstation Name: [id number]
[2020-01-03 05:56] LABS: Hematocrit 27.3 % (35.5-45.6); Hemoglobin 8.3 gm/dl (11.8-15.2); Mean Corpuscular HGB Conc 30 % (32-34); Mean Corpuscular Volume 79 fl (84-94); Platelet Count 318 K/mm3 (140-440); Red Blood Count 3.45 M/mm3 (3.65-5.03); Red Cell Distribution Width 19.3 % (13.2-15.2)
[2020-01-03] MEDS: LEVOTHYROXINE 88 MCG TAB PO SCH (05:57)
[2020-01-03 06:32] LABS: Calcium 9.7 mg/dL (8.4-10.2)
[2020-01-03] MEDS: IPRATROPIUM/ALBUTEROL SULFATE 3 ML AMPUL.NEB IH SCH ×3 (07:34→20:06)
[2020-01-03] MEDS: INSULIN GLARGINE 100 UNITS/ML SUB-Q SCH ×3 (08:50→22:37)
--- NOTE | 2020-01-03 09:14 | Progress Note ---
Assessment and Plan Acute Hypoxemic Respiratory Failure Severe Sepsis with Shock Bilateral Pneumonia JAGDEEP secondary to ATN, non oliguric Hypernatremia Morbid Obesity H/O CHF JOE - wean vasopressors for MAP > 65 mmHg -Start D5 1/4Nsaline for hypernatremia, get BMP in am -CT chest, abdomen and pelvis without contrast, on going sepsis with hypotesnion -Antibiotics (Cefepime, Linezolid); antifunga l( Fluconazole) per ID- de- escalate as indicated -Trophic feeding with bowel regimen. Plan to advance feeding as tolerated -Avoid nephrotoxins and dose all medications for GFR and CrCL -Discussed with ID and primary Attending re care plan -Discussed with RT, RN, clinical pharmacist and RD during interdisciplinary rounds - Daily SAT and SBT assessment as tolerated - accuchecks with glycemic control per SSI (While critically ill target blood glucose of 140-180 mg/dL; avoid hypoglycemia) - sedation for target RASS 0 to -1 - continue to wean supplemental oxygen for target O2 sats> 92% - continue bronchodilators with pulmonary hygiene per RT - VAP bundle addressed - Lung protective strategies - wean per pulmonary driven protocols - continue to avoid benzodiazepines reduce the possibility of delirium - prn analgesia per CPOT score - Maintenance of sleep-wake cycle - G.I. & VTE prophylaxis( Heparin, Famotidine) - Mobility, off loading and frequent turning to prevent pressure ulcers - continue aspiration precautions, HOB >40 - continue accuchecks with glycemic control per SSI (While critically ill target blood glucose of 140-180 mg/dL; avoid hypoglycemia) - Monitor hemodynamics closely - continue other care per attending / other consultants - discharge planning ongoing concurrently .... Re-evaluate in am & prn CONDITION: CRITICAL PROGNOSIS: GUARDED CODE STATUS: FULL CODE The high probability of a clinically significant, sudden or life-threatening deterioration of the [respiratory, cardiovascular, GI & neurologic] system(s) required my full and direct attention, intervention and personal management. The aggregate critical care time was [33] minutes without overlap. Time includes spent on; [x] Data Review and interpretation [x] Patient assessment and monitoring of vital signs [x] Documentation [x] Medication orders and management Subjective Date of service: 01/03/20 Principal diagnosis: Ac. Hypoxemic Resp Failure; Septic Shock; Magdiel. PNA; PUI COVID-19; CHF; JOE Interval history: Patient is seen today for: Acute Hypoxemic Respiratory Failure; Severe Sepsis with Shock; Bilateral Pneumonia; PUI COVID-19; Morbid Obesity; H/O CHF; JOE Seen and examined at bedside; 24hour events reviewed; nursing and respiratory care staff consulted; no adverse overnight events reported to me; resting peacefully in bed; remains on MVS; FiO2 down to 45% with room to wean; AMS is persistent; no emesis or overt aspiration; sputum growing MRSA Continues to require vasopressor support Objective Vital Signs - 12hr 01/02/20 01/02/20 01/02/20 21:30 22:00 22:16 Temperature Pulse Rate 95 H 83 87 Pulse Rate [ Bilateral] Respiratory 14 24 17 Rate Respiratory Rate [Bilateral ] Blood Pressure 93/57 97/55 116/63 O2 Sat by Pulse 94 95 95 Oximetry 01/02/20 01/02/20 01/02/20 22:30 22:32 23:00 Temperature Pulse Rate 73 73 81 Pulse Rate [ Bilateral] Respiratory 24 24 24 Rate Respiratory Rate [Bilateral ] Blood Pressure 128/66 124/67 121/64 O2 Sat by Pulse 96 95 95 Oximetry 01/02/20 01/03/20 01/03/20 23:30 00:00 00:03 Temperature 99.8 F H Pulse Rate 94 H 87 92 H Pulse Rate [ Bilateral] Respiratory 24 23 Rate Respiratory Rate [Bilateral ] Blood Pressure 110/59 110/59 O2 Sat by Pulse 94 94 94 Oximetry 01/03/20 01/03/20 01/03/20 00:10 00:30 01:00 Temperature Pulse Rate 87 82 90 Pulse Rate [ Bilateral] Respiratory 24 24 Rate Respiratory Rate [Bilateral ] Blood Pressure 108/57 106/62 O2 Sat by Pulse 94 95 Oximetry 01/03/20 01/03/20 01/03/20 01:30 02:00 02:30 Temperature Pulse Rate 80 81 86 Pulse Rate [ Bilateral] Respiratory 24 24 24 Rate Respiratory Rate [Bilateral ] Blood Pressure 101/57 100/53 105/58 O2 Sat by Pulse 95 94 95 Oximetry 01/03/20 01/03/20 01/03/20 03:00 03:30 03:45 Temperature Pulse Rate 82 80 81 Pulse Rate [ Bilateral] Respiratory 24 24 Rate Respiratory Rate [Bilateral ] Blood Pressure 111/60 109/57 105/58 O2 Sat by Pulse 95 95 95 Oximetry 01/03/20 01/03/2020 04:00 04:30 05:00 Temperature 100.0 F H Pulse Rate 78 83 96 H Pulse Rate [ Bilateral] Respiratory 24 24 15 Rate Respiratory Rate [Bilateral ] Blood Pressure 100/52 98/51 102/57 O2 Sat by Pulse 95 94 85 Oximetry 01/03/20 01/03/20 01/03/20 05:30 06:00 06:30 Temperature Pulse Rate 81 76 76 Pulse Rate [ Bilateral] Respiratory 24 16 18 Rate Respiratory Rate [Bilateral ] Blood Pressure 92/50 95/47 98/49 O2 Sat by Pulse 95 95 95 Oximetry 01/03/20 01/03/20 01/03/20 07:00 07:30 07:34 Temperature Pulse Rate 77 76 77 Pulse Rate [ 79 Bilateral] Respiratory 16 20 Rate Respiratory 24 Rate [Bilateral ] Blood Pressure 90/47 91/46 91/46 O2 Sat by Pulse 94 93 94 Oximetry 01/03/20 01/03/20 08:00 08:30 Temperature 97.8 F Pulse Rate 77 95 H Pulse Rate [ Bilateral] Respiratory 21 19 Rate Respiratory Rate [Bilateral ] Blood Pressure 97/48 94/45 O2 Sat by Pulse 93 91 Oximetry Constitutional: no acute distress, other (Obese AAM with mildly increrased respiratory effort at rest on MVS) Eyes: non-icteric ENT: oropharynx moist, other (ETT 24 cm KOLBY) Neck: supple, no lymphadenopathy, no JVD Effort: mildly labored Ascultation: Bilateral: diminished breath sounds, rhonchi Percussion: Bilateral: not dull Cardiovascular: regular rate and rhythm, other (S1,S2) Gastrointestinal: normoactive bowel sounds, soft, non-tender, other (distended, soft) Integumentary: rash (stasis dermatyitis) Extremities: no cyanosis, pink and warm, pulses normal, no ischemia or petechiae, edema (trace) Neurologic: pupils equal and round, motor strength normal and, unable to assess, other Psychiatric: other (unable to assess re: AQMS) CBC and BMP: 01/03/20 05:40 01/03/20 05:40 ABG, PT/INR, D-dimer: ABG ABG pH 7.473 pH Units (7.350-7.450) H 01/03/20 03:12 ABG pCO2 42.5 mm Hg 01/03/20 03:12 ABG pO2 109.6 mm Hg (80.0-90.0) H 01/03/20 03:12 ABG O2 Saturation 98.1 % (95.0-99.0) 01/03/20 03:12 PT/INR, D-dimer PT 14.0 Sec. (12.2-14.9) 12/18/19 14:45 INR 1.10 (0.87-1.13) 12/18/19 14:45 D-Dimer 534.45 ng/mlDDU (0-234) H 12/18/19 14:45 Abnormal lab findings: Abnormal Labs 12/18/19 12/18/19 12/18/19 12:23 14:45 14:45 WBC RBC Hgb 10.4 L Hct 35.2 L MCV MCH 25 L MCHC 30 L RDW 18.8 H Lymph % (Auto) [place] % (Auto) 11.6 H Eos % (Auto) 4.8 H Lymph # [place] # 1.0 H Eos # Seg Neutrophils % Monocytes % (Manual) Monocytes # (Manual) D-Dimer ABG pH ABG pO2 ABG HCO3 ABG O2 Saturation ABG Base Excess ABG Hemoglobin Oxyhemoglobin Sodium Potassium Chloride Carbon Dioxide BUN Creatinine Glucose POC Glucose 328 H Lactic Acid Calcium Magnesium AST ALT Lactate Dehydrogenase Total Creatine Kinase 40 L C-Reactive Protein Albumin Urine WBC (Auto) Urine Total Protein Digoxin Salicylates Acetaminophen 12/18/19 12/18/19 12/18/19 14:45 14:45 14:45 WBC RBC Hgb Hct MCV MCH MCHC RDW Lymph % (Auto) [place] % (Auto) Eos % (Auto) Lymph # [place] # Eos # Seg Neutrophils % Monocytes % (Manual) Monocytes # (Manual) D-Dimer 534.45 H ABG pH ABG pO2 ABG HCO3 ABG O2 Saturation ABG Base Excess ABG Hemoglobin Oxyhemoglobin Sodium 156 H Potassium Chloride 112.3 H Carbon Dioxide 31 H BUN 32 H Creatinine Glucose 328 H POC Glucose Lactic Acid Calcium Magnesium AST ALT Lactate Dehydrogenase 235 H Total Creatine Kinase C-Reactive Protein 8.50 H Albumin 3.6 L Urine WBC (Auto) Urine Total Protein Digoxin 0.3 L Salicylates < 0.3 L Acetaminophen 12/18/19 12/18/19 12/18/19 14:45 14:45 16:00 WBC RBC Hgb Hct MCV MCH MCHC RDW Lymph % (Auto) [place] % (Auto) Eos % (Auto) Lymph # [place] # Eos # Seg Neutrophils % Monocytes % (Manual) Monocytes # (Manual) D-Dimer ABG pH ABG pO2 69.8 L ABG HCO3 31.8 H ABG O2 Saturation ABG Base Excess 5.4 H ABG Hemoglobin 10.0 L Oxyhemoglobin 92.9 L Sodium Potassium Chloride Carbon Dioxide BUN Creatinine Glucose 314 H POC Glucose Lactic Acid Calcium Magnesium AST ALT Lactate Dehydrogenase 236 H Total Creatine Kinase C-Reactive Protein 8.40 H Albumin Urine WBC (Auto) Urine Total Protein Digoxin Salicylates Acetaminophen < 5.0 L 12/18/19 12/18/19 12/18/19 16:35 18:30 22:56 WBC RBC Hgb Hct MCV MCH MCHC RDW Lymph % (Auto) [place] % (Auto) Eos % (Auto) Lymph # [place] # Eos # Seg Neutrophils % Monocytes % (Manual) Monocytes # (Manual) D-Dimer ABG pH ABG pO2 ABG HCO3 ABG O2 Saturation ABG Base Excess ABG Hemoglobin Oxyhemoglobin Sodium Potassium Chloride Carbon Dioxide BUN Creatinine Glucose POC Glucose 310 H 353 H Lactic Acid 2.50 H* Calcium Magnesium AST ALT Lactate Dehydrogenase Total Creatine Kinase C-Reactive Protein Albumin Urine WBC (Auto) Urine Total Protein Digoxin Salicylates Acetaminophen 12/19/19 12/19/19 12/19/19 04:13 04:13 06:00 WBC RBC Hgb 10.0 L Hct 34.2 L MCV MCH 25 L MCHC 29 L RDW 19.0 H Lymph % (Auto) [place] % (Auto) 10.1 H Eos % (Auto) Lymph # [place] # 1.1 H Eos # Seg Neutrophils % 71.8 H Monocytes % (Manual) Monocytes # (Manual) D-Dimer ABG pH ABG pO2 186.5 H ABG HCO3 27.8 H ABG O2 Saturation 99.1 H ABG Base Excess ABG Hemoglobin 10.4 L Oxyhemoglobin Sodium 157 H Potassium Chloride 119.1 H Carbon Dioxide BUN 26 H Creatinine Glucose 302 H POC Glucose Lactic Acid Calcium 7.9 L Magnesium AST 85 H ALT 61 H Lactate Dehydrogenase Total Creatine Kinase C-Reactive Protein Albumin 3.0 L Urine WBC (Auto) Urine Total Protein Digoxin Salicylates Acetaminophen 12/19/19 12/19/19 12/19/19 08:30 11:55 16:50 WBC RBC Hgb Hct MCV MCH MCHC RDW Lymph % (Auto) [place] % (Auto) Eos % (Auto) Lymph # [place] # Eos # Seg Neutrophils % Monocytes % (Manual) Monocytes # (Manual) D-Dimer ABG pH ABG pO2 ABG HCO3 ABG O2 Saturation ABG Base Excess ABG Hemoglobin Oxyhemoglobin Sodium Potassium Chloride Carbon Dioxide BUN Creatinine Glucose POC Glucose 264 H 251 H Lactic Acid Calcium Magnesium AST ALT Lactate Dehydrogenase Total Creatine Kinase C-Reactive Protein Albumin Urine WBC (Auto) 7.0 H Urine Total Protein Digoxin Salicylates Acetaminophen 12/19/19 12/19/19 12/20/19 17:41 23:42 03:35 WBC RBC Hgb Hct MCV MCH MCHC RDW Lymph % (Auto) [place] % (Auto) Eos % (Auto) Lymph # [place] # Eos # Seg Neutrophils % Monocytes % (Manual) Monocytes # (Manual) D-Dimer ABG pH ABG pO2 ABG HCO3 27.7 H ABG O2 Saturation ABG Base Excess ABG Hemoglobin 11.6 L Oxyhemoglobin 94.9 L Sodium Potassium Chloride Carbon Dioxide BUN Creatinine Glucose POC Glucose 180 H 205 H Lactic Acid Calcium Magnesium AST ALT Lactate Dehydrogenase Total Creatine Kinase C-Reactive Protein Albumin Urine WBC (Auto) Urine Total Protein Digoxin Salicylates Acetaminophen 12/20/19 12/20/19 12/20/19 04:45 04:45 05:27 WBC RBC Hgb 9.4 L Hct 31.4 L MCV MCH 25 L MCHC 30 L RDW 19.4 H Lymph % (Auto) [place] % (Auto) 10.2 H Eos % (Auto) 6.0 H Lymph # 0.9 L [place] # Eos # Seg Neutrophils % Monocytes % (Manual) Monocytes # (Manual) D-Dimer ABG pH ABG pO2 ABG HCO3 ABG O2 Saturation ABG Base Excess ABG Hemoglobin Oxyhemoglobin Sodium 153 H Potassium Chloride 114.6 H Carbon Dioxide BUN Creatinine Glucose 170 H POC Glucose 188 H Lactic Acid Calcium 7.9 L Magnesium AST ALT Lactate Dehydrogenase Total Creatine Kinase C-Reactive Protein Albumin Urine WBC (Auto) Urine Total Protein Digoxin Salicylates Acetaminophen 12/20/19 12/20/19 12/21/19 12:26 18:20 00:20 WBC RBC Hgb Hct MCV MCH MCHC RDW Lymph % (Auto) [place] % (Auto) Eos % (Auto) Lymph # [place] # Eos # Seg Neutrophils % Monocytes % (Manual) Monocytes # (Manual) D-Dimer ABG pH ABG pO2 ABG HCO3 ABG O2 Saturation ABG Base Excess ABG Hemoglobin Oxyhemoglobin Sodium Potassium Chloride Carbon Dioxide BUN Creatinine Glucose POC Glucose 200 H 263 H 218 H Lactic Acid Calcium Magnesium AST ALT Lactate Dehydrogenase Total Creatine Kinase C-Reactive Protein Albumin Urine WBC (Auto) Urine Total Protein Digoxin Salicylates Acetaminophen 12/21/19 12/21/19 12/21/19 04:38 05:26 12:35 WBC RBC Hgb Hct MCV MCH MCHC RDW Lymph % (Auto) [place] % (Auto) Eos % (Auto) Lymph # [place] # Eos # Seg Neutrophils % Monocytes % (Manual) Monocytes # (Manual) D-Dimer ABG pH ABG pO2 ABG HCO3 ABG O2 Saturation ABG Base Excess ABG Hemoglobin Oxyhemoglobin Sodium 149 H Potassium 3.5 L Chloride 110.5 H Carbon Dioxide BUN Creatinine Glucose 158 H POC Glucose 193 H 193 H Lactic Acid Calcium Magnesium AST ALT Lactate Dehydrogenase Total Creatine Kinase C-Reactive Protein Albumin Urine WBC (Auto) Urine Total Protein Digoxin Salicylates Acetaminophen 12/21/19 12/22/19 12/22/19 18:29 00:03 05:15 WBC RBC Hgb 10.3 L Hct 34.7 L MCV MCH 25 L MCHC 30 L RDW 19.4 H Lymph % (Auto) 9.0 L [place] % (Auto) 12.3 H Eos % (Auto) 5.0 H Lymph # 0.5 L [place] # Eos # Seg Neutrophils % 73.2 H Monocytes % (Manual) Monocytes # (Manual) D-Dimer ABG pH ABG pO2 ABG HCO3 ABG O2 Saturation ABG Base Excess ABG Hemoglobin Oxyhemoglobin Sodium Potassium Chloride Carbon Dioxide BUN Creatinine Glucose POC Glucose 186 H 143 H Lactic Acid Calcium Magnesium AST ALT Lactate Dehydrogenase Total Creatine Kinase C-Reactive Protein Albumin Urine WBC (Auto) Urine Total Protein Digoxin Salicylates Acetaminophen 12/22/19 12/22/19 12/22/19 05:15 06:02 12:13 WBC RBC Hgb Hct MCV MCH MCHC RDW Lymph % (Auto) [place] % (Auto) Eos % (Auto) Lymph # [place] # Eos # Seg Neutrophils % Monocytes % (Manual) Monocytes # (Manual) D-Dimer ABG pH ABG pO2 ABG HCO3 ABG O2 Saturation ABG Base Excess ABG Hemoglobin Oxyhemoglobin Sodium 152 H Potassium Chloride 113.5 H Carbon Dioxide BUN Creatinine Glucose 126 H POC Glucose 144 H 159 H Lactic Acid Calcium Magnesium AST ALT Lactate Dehydrogenase Total Creatine Kinase C-Reactive Protein Albumin Urine WBC (Auto) Urine Total Protein Digoxin Salicylates Acetaminophen 12/22/19 12/22/19 12/23/19 18:03 23:50 05:27 WBC RBC Hgb Hct MCV MCH MCHC RDW Lymph % (Auto) [place] % (Auto) Eos % (Auto) Lymph # [place] # Eos # Seg Neutrophils % Monocytes % (Manual) Monocytes # (Manual) D-Dimer ABG pH ABG pO2 ABG HCO3 ABG O2 Saturation ABG Base Excess ABG Hemoglobin Oxyhemoglobin Sodium Potassium Chloride Carbon Dioxide BUN Creatinine Glucose POC Glucose 140 H 227 H 185 H Lactic Acid Calcium Magnesium AST ALT Lactate Dehydrogenase Total Creatine Kinase C-Reactive Protein Albumin Urine WBC (Auto) Urine Total Protein Digoxin Salicylates Acetaminophen 12/23/19 12/23/19 12/23/19 12:13 16:05 16:40 WBC RBC Hgb Hct MCV MCH MCHC RDW Lymph % (Auto) [place] % (Auto) Eos % (Auto) Lymph # [place] # Eos # Seg Neutrophils % Monocytes % (Manual) Monocytes # (Manual) D-Dimer ABG pH 7.259 L ABG pO2 76.2 L ABG HCO3 30.6 H ABG O2 Saturation 94.6 L ABG Base Excess ABG Hemoglobin 11.5 L Oxyhemoglobin 92.2 L Sodium 163 H* D Potassium 3.4 L Chloride 120.1 H Carbon Dioxide BUN Creatinine Glucose 162 H POC Glucose 132 H Lactic Acid Calcium Magnesium AST ALT Lactate Dehydrogenase Total Creatine Kinase C-Reactive Protein Albumin Urine WBC (Auto) Urine Total Protein Digoxin Salicylates Acetaminophen 12/23/19 12/24/19 12/24/19 17:53 00:48 04:20 WBC RBC Hgb Hct MCV MCH MCHC RDW Lymph % (Auto) [place] % (Auto) Eos % (Auto) Lymph # [place] # Eos # Seg Neutrophils % Monocytes % (Manual) Monocytes # (Manual) D-Dimer ABG pH ABG pO2 ABG HCO3 30.4 H ABG O2 Saturation ABG Base Excess 3.9 H ABG Hemoglobin 10.3 L Oxyhemoglobin 94.4 L Sodium Potassium Chloride Carbon Dioxide BUN Creatinine Glucose POC Glucose 180 H 174 H Lactic Acid Calcium Magnesium AST ALT Lactate Dehydrogenase Total Creatine Kinase C-Reactive Protein Albumin Urine WBC (Auto) Urine Total Protein Digoxin Salicylates Acetaminophen 12/24/19 12/24/19 12/24/19 04:53 04:53 11:50 WBC RBC Hgb 9.7 L Hct 33.2 L MCV MCH 25 L MCHC 29 L RDW 20.1 H Lymph % (Auto) [place] % (Auto) Eos % (Auto) Lymph # [place] # Eos # Seg Neutrophils % Monocytes % (Manual) 15.0 H Monocytes # (Manual) 0.9 H D-Dimer ABG pH ABG pO2 ABG HCO3 ABG O2 Saturation ABG Base Excess ABG Hemoglobin Oxyhemoglobin Sodium 163 H* Potassium 3.2 L Chloride 122.6 H Carbon Dioxide BUN Creatinine Glucose 168 H POC Glucose 190 H Lactic Acid Calcium Magnesium AST ALT Lactate Dehydrogenase Total Creatine Kinase C-Reactive Protein Albumin Urine WBC (Auto) Urine Total Protein Digoxin Salicylates Acetaminophen 12/24/19 12/24/19 12/24/19 15:00 16:28 21:15 WBC RBC Hgb Hct MCV MCH MCHC RDW Lymph % (Auto) [place] % (Auto) Eos % (Auto) Lymph # [place] # Eos # Seg Neutrophils % Monocytes % (Manual) Monocytes # (Manual) D-Dimer ABG pH ABG pO2 ABG HCO3 ABG O2 Saturation ABG Base Excess ABG Hemoglobin Oxyhemoglobin Sodium 165 H* D 163 H* Potassium Chloride Carbon Dioxide BUN Creatinine Glucose POC Glucose 160 H Lactic Acid Calcium Magnesium AST ALT Lactate Dehydrogenase Total Creatine Kinase C-Reactive Protein Albumin Urine WBC (Auto) Urine Total Protein Digoxin Salicylates Acetaminophen 12/25/19 12/25/19 12/25/19 00:31 05:38 05:46 WBC RBC Hgb 9.7 L Hct 32.5 L MCV MCH 25 L MCHC 30 L RDW 19.4 H Lymph % (Auto) [place] % (Auto) Eos % (Auto) Lymph # [place] # Eos # Seg Neutrophils % Monocytes % (Manual) Monocytes # (Manual) D-Dimer ABG pH ABG pO2 ABG HCO3 ABG O2 Saturation ABG Base Excess ABG Hemoglobin Oxyhemoglobin Sodium Potassium Chloride Carbon Dioxide BUN Creatinine Glucose POC Glucose 182 H 194 H Lactic Acid Calcium Magnesium AST ALT Lactate Dehydrogenase Total Creatine Kinase C-Reactive Protein Albumin Urine WBC (Auto) Urine Total Protein Digoxin Salicylates Acetaminophen 12/25/19 12/25/19 12/25/19 05:46 11:35 11:38 WBC RBC Hgb Hct MCV MCH MCHC RDW Lymph % (Auto) [place] % (Auto) Eos % (Auto) Lymph # [place] # Eos # Seg Neutrophils % Monocytes % (Manual) Monocytes # (Manual) D-Dimer ABG pH 7.330 L ABG pO2 65.7 L ABG HCO3 32.6 H ABG O2 Saturation 92.5 L ABG Base Excess 5.3 H ABG Hemoglobin 10.4 L Oxyhemoglobin 90.0 L Sodium 166 H* Potassium 2.9 L* Chloride 124.5 H Carbon Dioxide BUN Creatinine Glucose 190 H POC Glucose 192 H Lactic Acid Calcium Magnesium AST ALT Lactate Dehydrogenase Total Creatine Kinase C-Reactive Protein Albumin Urine WBC (Auto) Urine Total Protein Digoxin Salicylates Acetaminophen 12/25/19 12/25/19 12/25/19 13:01 16:45 17:20 WBC RBC Hgb Hct MCV MCH MCHC RDW Lymph % (Auto) [place] % (Auto) Eos % (Auto) Lymph # [place] # Eos # Seg Neutrophils % Monocytes % (Manual) Monocytes # (Manual) D-Dimer ABG pH 7.296 L ABG pO2 101.5 H ABG HCO3 33.2 H ABG O2 Saturation ABG Base Excess 5.3 H ABG Hemoglobin 9.6 L Oxyhemoglobin 94.6 L Sodium 174 H* Potassium Chloride Carbon Dioxide BUN Creatinine Glucose POC Glucose Lactic Acid Calcium Magnesium AST ALT Lactate Dehydrogenase Total Creatine Kinase C-Reactive Protein Albumin Urine WBC (Auto) Urine Total Protein < 4 L Digoxin Salicylates Acetaminophen 12/25/19 12/25/19 12/26/19 17:48 18:50 00:43 WBC RBC Hgb Hct MCV MCH MCHC RDW Lymph % (Auto) [place] % (Auto) Eos % (Auto) Lymph # [place] # Eos # Seg Neutrophils % Monocytes % (Manual) Monocytes # (Manual) D-Dimer ABG pH ABG pO2 ABG HCO3 ABG O2 Saturation ABG Base Excess ABG Hemoglobin Oxyhemoglobin Sodium 166 H* 164 H* Potassium Chloride 127.3 H Carbon Dioxide BUN Creatinine Glucose 220 H POC Glucose 252 H Lactic Acid Calcium Magnesium AST ALT Lactate Dehydrogenase Total Creatine Kinase C-Reactive Protein Albumin Urine WBC (Auto) Urine Total Protein Digoxin Salicylates Acetaminophen 12/26/19 12/26/1920 05:31 08:07 08:07 WBC 4.3 L RBC Hgb 9.6 L Hct 32.1 L MCV MCH 26 L MCHC 30 L RDW 20.5 H Lymph % (Auto) [place] % (Auto) Eos % (Auto) Lymph # [place] # Eos # Seg Neutrophils % Monocytes % (Manual) Monocytes # (Manual) D-Dimer ABG pH ABG pO2 ABG HCO3 ABG O2 Saturation ABG Base Excess ABG Hemoglobin Oxyhemoglobin Sodium 162 H* Potassium Chloride 122.1 H Carbon Dioxide BUN Creatinine Glucose 247 H POC Glucose 187 H Lactic Acid Calcium Magnesium AST ALT Lactate Dehydrogenase Total Creatine Kinase C-Reactive Protein Albumin Urine WBC (Auto) Urine Total Protein Digoxin Salicylates Acetaminophen 12/26/19 12/26/19 12/26/19 08:07 12:20 16:25 WBC RBC Hgb Hct MCV MCH MCHC RDW Lymph % (Auto) [place] % (Auto) Eos % (Auto) Lymph # [place] # Eos # Seg Neutrophils % Monocytes % (Manual) Monocytes # (Manual) D-Dimer ABG pH 7.290 L ABG pO2 73.2 L ABG HCO3 33.2 H ABG O2 Saturation 94.9 L ABG Base Excess 5.2 H ABG Hemoglobin 10.0 L Oxyhemoglobin 92.5 L Sodium 159 H Potassium Chloride Carbon Dioxide BUN Creatinine Glucose POC Glucose 234 H Lactic Acid Calcium Magnesium AST ALT Lactate Dehydrogenase Total Creatine Kinase C-Reactive Protein Albumin Urine WBC (Auto) Urine Total Protein Digoxin Salicylates Acetaminophen 12/26/19 12/26/19 12/26/19 17:33 22:35 23:30 WBC RBC Hgb Hct MCV MCH MCHC RDW Lymph % (Auto) [place] % (Auto) Eos % (Auto) Lymph # [place] # Eos # Seg Neutrophils % Monocytes % (Manual) Monocytes # (Manual) D-Dimer ABG pH ABG pO2 ABG HCO3 ABG O2 Saturation ABG Base Excess ABG Hemoglobin Oxyhemoglobin Sodium Potassium Chloride Carbon Dioxide BUN Creatinine Glucose POC Glucose 244 H 208 H 287 H Lactic Acid Calcium Magnesium AST ALT Lactate Dehydrogenase Total Creatine Kinase C-Reactive Protein Albumin Urine WBC (Auto) Urine Total Protein Digoxin Salicylates Acetaminophen 12/27/19 12/27/19 12/27/19 03:48 03:48 03:48 WBC RBC Hgb 10.1 L Hct 35.4 L MCV MCH 25 L MCHC 29 L RDW 20.1 H Lymph % (Auto) [place] % (Auto) Eos % (Auto) Lymph # [place] # Eos # Seg Neutrophils % Monocytes % (Manual) Monocytes # (Manual) D-Dimer ABG pH ABG pO2 ABG HCO3 ABG O2 Saturation ABG Base Excess ABG Hemoglobin Oxyhemoglobin Sodium 160 H Potassium Chloride 118.8 H Carbon Dioxide 33 H BUN Creatinine Glucose 217 H POC Glucose Lactic Acid Calcium Magnesium 2.70 H AST ALT Lactate Dehydrogenase Total Creatine Kinase C-Reactive Protein Albumin Urine WBC (Auto) Urine Total Protein Digoxin Salicylates Acetaminophen 12/27/19 12/27/19 12/27/19 05:50 11:58 16:05 WBC RBC Hgb Hct MCV MCH MCHC RDW Lymph % (Auto) [place] % (Auto) Eos % (Auto) Lymph # [place] # Eos # Seg Neutrophils % Monocytes % (Manual) Monocytes # (Manual) D-Dimer ABG pH 7.180 L* ABG pO2 73.6 L ABG HCO3 34.8 H ABG O2 Saturation 92.7 L ABG Base Excess 3.8 H ABG Hemoglobin 12.0 L Oxyhemoglobin 90.2 L Sodium Potassium Chloride Carbon Dioxide BUN Creatinine Glucose POC Glucose 224 H 218 H Lactic Acid Calcium Magnesium AST ALT Lactate Dehydrogenase Total Creatine Kinase C-Reactive Protein Albumin Urine WBC (Auto) Urine Total Protein Digoxin Salicylates Acetaminophen 12/27/19 12/27/19 12/27/19 18:05 19:50 21:53 WBC RBC Hgb Hct MCV MCH MCHC RDW Lymph % (Auto) [place] % (Auto) Eos % (Auto) Lymph # [place] # Eos # Seg Neutrophils % Monocytes % (Manual) Monocytes # (Manual) D-Dimer ABG pH 7.328 L ABG pO2 49.9 L ABG HCO3 33.3 H ABG O2 Saturation 87.1 L ABG Base Excess 5.7 H ABG Hemoglobin 11.2 L Oxyhemoglobin 84.8 L Sodium Potassium Chloride Carbon Dioxide BUN Creatinine Glucose POC Glucose 214 H 178 H Lactic Acid Calcium Magnesium AST ALT Lactate Dehydrogenase Total Creatine Kinase C-Reactive Protein Albumin Urine WBC (Auto) Urine Total Protein Digoxin Salicylates Acetaminophen 12/28/19 12/28/19 12/28/19 00:42 04:37 04:37 WBC RBC Hgb 9.8 L Hct 33.5 L MCV MCH 25 L MCHC 29 L RDW 21.1 H Lymph % (Auto) [place] % (Auto) Eos % (Auto) Lymph # [place] # Eos # Seg Neutrophils % Monocytes % (Manual) Monocytes # (Manual) D-Dimer ABG pH ABG pO2 ABG HCO3 ABG O2 Saturation ABG Base Excess ABG Hemoglobin Oxyhemoglobin Sodium 157 H Potassium 3.4 L Chloride 117.5 H Carbon Dioxide BUN Creatinine Glucose 193 H POC Glucose 157 H Lactic Acid Calcium Magnesium AST ALT Lactate Dehydrogenase Total Creatine Kinase C-Reactive Protein Albumin Urine WBC (Auto) Urine Total Protein Digoxin Salicylates Acetaminophen 12/28/19 12/28/19 12/28/19 04:52 05:19 12:05 WBC RBC Hgb Hct MCV MCH MCHC RDW Lymph % (Auto) [place] % (Auto) Eos % (Auto) Lymph # [place] # Eos # Seg Neutrophils % Monocytes % (Manual) Monocytes # (Manual) D-Dimer ABG pH ABG pO2 51.7 L ABG HCO3 28.7 H ABG O2 Saturation 89.9 L ABG Base Excess 4.1 H ABG Hemoglobin 9.7 L Oxyhemoglobin 87.7 L Sodium Potassium Chloride Carbon Dioxide BUN Creatinine Glucose POC Glucose 202 H 248 H Lactic Acid Calcium Magnesium AST ALT Lactate Dehydrogenase Total Creatine Kinase C-Reactive Protein Albumin Urine WBC (Auto) Urine Total Protein Digoxin Salicylates Acetaminophen 12/28/19 12/28/19 12/28/19 18:11 21:15 23:22 WBC RBC Hgb Hct MCV MCH MCHC RDW Lymph % (Auto) [place] % (Auto) Eos % (Auto) Lymph # [place] # Eos # Seg Neutrophils % Monocytes % (Manual) Monocytes # (Manual) D-Dimer ABG pH ABG pO2 ABG HCO3 ABG O2 Saturation ABG Base Excess ABG Hemoglobin Oxyhemoglobin Sodium Potassium Chloride Carbon Dioxide BUN Creatinine Glucose POC Glucose 226 H 217 H 227 H Lactic Acid Calcium Magnesium AST ALT Lactate Dehydrogenase Total Creatine Kinase C-Reactive Protein Albumin Urine WBC (Auto) Urine Total Protein Digoxin Salicylates Acetaminophen 12/29/19 12/29/19 12/29/19 04:09 04:59 04:59 WBC 11.1 H RBC Hgb 9.3 L Hct 31.1 L MCV 81 L MCH 24 L MCHC 30 L RDW 19.9 H Lymph % (Auto) [place] % (Auto) Eos % (Auto) Lymph # [place] # Eos # Seg Neutrophils % Monocytes % (Manual) Monocytes # (Manual) D-Dimer ABG pH 7.473 H ABG pO2 126.1 H ABG HCO3 29.2 H ABG O2 Saturation ABG Base Excess 5.1 H ABG Hemoglobin 8.4 L Oxyhemoglobin Sodium 157 H Potassium 3.2 L Chloride 118.2 H Carbon Dioxide BUN Creatinine 1.7 H Glucose 229 H POC Glucose Lactic Acid Calcium Magnesium AST ALT Lactate Dehydrogenase Total Creatine Kinase C-Reactive Protein Albumin Urine WBC (Auto) Urine Total Protein Digoxin Salicylates Acetaminophen 12/29/19 12/29/19 12/29/19 05:15 12:13 17:59 WBC RBC Hgb Hct MCV MCH MCHC RDW Lymph % (Auto) [place] % (Auto) Eos % (Auto) Lymph # [place] # Eos # Seg Neutrophils % Monocytes % (Manual) Monocytes # (Manual) D-Dimer ABG pH ABG pO2 ABG HCO3 ABG O2 Saturation ABG Base Excess ABG Hemoglobin Oxyhemoglobin Sodium Potassium Chloride Carbon Dioxide BUN Creatinine Glucose POC Glucose 221 H 392 H 365 H Lactic Acid Calcium Magnesium AST ALT Lactate Dehydrogenase Total Creatine Kinase C-Reactive Protein Albumin Urine WBC (Auto) Urine Total Protein Digoxin Salicylates Acetaminophen 12/29/19 12/29/19 12/30/19 20:25 23:38 04:45 WBC RBC Hgb Hct MCV MCH MCHC RDW Lymph % (Auto) [place] % (Auto) Eos % (Auto) Lymph # [place] # Eos # Seg Neutrophils % Monocytes % (Manual) Monocytes # (Manual) D-Dimer ABG pH 7.261 L 7.343 L ABG pO2 60.3 L 54.3 L ABG HCO3 32.1 H 30.9 H ABG O2 Saturation 87.6 L 88.3 L ABG Base Excess 3.7 H 4.0 H ABG Hemoglobin 9.7 L 11.6 L Oxyhemoglobin 85.2 L 86.0 L Sodium Potassium Chloride Carbon Dioxide BUN Creatinine Glucose POC Glucose 402 H Lactic Acid Calcium Magnesium AST ALT Lactate Dehydrogenase Total Creatine Kinase C-Reactive Protein Albumin Urine WBC (Auto) Urine Total Protein Digoxin Salicylates Acetaminophen 12/30/19 12/30/19 12/30/19 05:06 05:06 05:06 WBC 11.7 H RBC Hgb 9.4 L Hct 32.4 L MCV 83 L MCH 24 L MCHC 29 L RDW 20.2 H Lymph % (Auto) [place] % (Auto) Eos % (Auto) Lymph # [place] # Eos # Seg Neutrophils % Monocytes % (Manual) Monocytes # (Manual) D-Dimer ABG pH ABG pO2 ABG HCO3 ABG O2 Saturation ABG Base Excess ABG Hemoglobin Oxyhemoglobin Sodium 159 H Potassium 3.2 L Chloride 120.1 H Carbon Dioxide 31 H BUN Creatinine 1.9 H Glucose 404 H POC Glucose Lactic Acid Calcium Magnesium 2.60 H AST ALT Lactate Dehydrogenase Total Creatine Kinase C-Reactive Protein Albumin Urine WBC (Auto) Urine Total Protein Digoxin Salicylates Acetaminophen 12/30/19 12/30/19 12/30/19 06:26 12:29 13:44 WBC RBC Hgb Hct MCV MCH MCHC RDW Lymph % (Auto) [place] % (Auto) Eos % (Auto) Lymph # [place] # Eos # Seg Neutrophils % Monocytes % (Manual) Monocytes # (Manual) D-Dimer ABG pH ABG pO2 ABG HCO3 ABG O2 Saturation ABG Base Excess ABG Hemoglobin Oxyhemoglobin Sodium Potassium Chloride Carbon Dioxide BUN Creatinine Glucose POC Glucose 399 H 469 H > 500 H Lactic Acid Calcium Magnesium AST ALT Lactate Dehydrogenase Total Creatine Kinase C-Reactive Protein Albumin Urine WBC (Auto) Urine Total Protein Digoxin Salicylates Acetaminophen 12/30/19 12/30/19 12/30/19 13:51 16:32 18:05 WBC RBC Hgb Hct MCV MCH MCHC RDW Lymph % (Auto) [place] % (Auto) Eos % (Auto) Lymph # [place] # Eos # Seg Neutrophils % Monocytes % (Manual) Monocytes # (Manual) D-Dimer ABG pH ABG pO2 ABG HCO3 ABG O2 Saturation ABG Base Excess ABG Hemoglobin Oxyhemoglobin Sodium Potassium Chloride Carbon Dioxide BUN Creatinine Glucose POC Glucose > 500 H 445 H 429 H Lactic Acid Calcium Magnesium AST ALT Lactate Dehydrogenase Total Creatine Kinase C-Reactive Protein Albumin Urine WBC (Auto) Urine Total Protein Digoxin Salicylates Acetaminophen 12/30/19 12/30/19 12/31/19 21:42 Unknown 00:00 WBC RBC Hgb Hct MCV MCH MCHC RDW Lymph % (Auto) [place] % (Auto) Eos % (Auto) Lymph # [place] # Eos # Seg Neutrophils % Monocytes % (Manual) Monocytes # (Manual) D-Dimer ABG pH ABG pO2 ABG HCO3 ABG O2 Saturation ABG Base Excess ABG Hemoglobin Oxyhemoglobin Sodium Potassium Chloride Carbon Dioxide BUN Creatinine Glucose 498 H POC Glucose 371 H 452 H Lactic Acid Calcium Magnesium AST ALT Lactate Dehydrogenase Total Creatine Kinase C-Reactive Protein Albumin Urine WBC (Auto) Urine Total Protein Digoxin Salicylates Acetaminophen 12/31/19 12/31/19 12/31/19 04:31 05:42 08:01 WBC RBC Hgb Hct MCV MCH MCHC RDW Lymph % (Auto) [place] % (Auto) Eos % (Auto) Lymph # [place] # Eos # Seg Neutrophils % Monocytes % (Manual) Monocytes # (Manual) D-Dimer ABG pH 7.251 L ABG pO2 62.4 L ABG HCO3 31.1 H ABG O2 Saturation 88.7 L ABG Base Excess ABG Hemoglobin 8.7 L Oxyhemoglobin 86.4 L Sodium Potassium Chloride Carbon Dioxide BUN Creatinine Glucose POC Glucose 443 H 443 H Lactic Acid Calcium Magnesium AST ALT Lactate Dehydrogenase Total Creatine Kinase C-Reactive Protein Albumin Urine WBC (Auto) Urine Total Protein Digoxin Salicylates Acetaminophen 12/31/19 12/31/19 12/31/19 09:08 10:00 11:50 WBC RBC Hgb Hct MCV MCH MCHC RDW Lymph % (Auto) [place] % (Auto) Eos % (Auto) Lymph # [place] # Eos # Seg Neutrophils % Monocytes % (Manual) Monocytes # (Manual) D-Dimer ABG pH 7.325 L ABG pO2 97.2 H ABG HCO3 30.1 H ABG O2 Saturation ABG Base Excess 3.4 H ABG Hemoglobin 8.3 L Oxyhemoglobin 94.7 L Sodium 151 H D Potassium 3.2 L Chloride 113.0 H Carbon Dioxide BUN 23 H Creatinine 1.8 H Glucose 373 H POC Glucose 465 H Lactic Acid Calcium Magnesium AST ALT Lactate Dehydrogenase Total Creatine Kinase C-Reactive Protein Albumin Urine WBC (Auto) Urine Total Protein Digoxin Salicylates Acetaminophen 12/31/19 12/31/19 12/31/19 12:25 13:33 18:30 WBC RBC Hgb Hct MCV MCH MCHC RDW Lymph % (Auto) [place] % (Auto) Eos % (Auto) Lymph # [place] # Eos # Seg Neutrophils % Monocytes % (Manual) Monocytes # (Manual) D-Dimer ABG pH ABG pO2 ABG HCO3 ABG O2 Saturation ABG Base Excess ABG Hemoglobin Oxyhemoglobin Sodium Potassium Chloride Carbon Dioxide BUN Creatinine Glucose POC Glucose 379 H 311 H 349 H Lactic Acid Calcium Magnesium AST ALT Lactate Dehydrogenase Total Creatine Kinase C-Reactive Protein Albumin Urine WBC (Auto) Urine Total Protein Digoxin Salicylates Acetaminophen 12/31/19 12/31/19 01/01/20 22:29 23:30 02:58 WBC RBC Hgb Hct MCV MCH MCHC RDW Lymph % (Auto) [place] % (Auto) Eos % (Auto) Lymph # [place] # Eos # Seg Neutrophils % Monocytes % (Manual) Monocytes # (Manual) D-Dimer ABG pH ABG pO2 ABG HCO3 ABG O2 Saturation ABG Base Excess ABG Hemoglobin Oxyhemoglobin Sodium Potassium Chloride Carbon Dioxide BUN Creatinine Glucose POC Glucose 256 H 266 H 248 H Lactic Acid Calcium Magnesium AST ALT Lactate Dehydrogenase Total Creatine Kinase C-Reactive Protein Albumin Urine WBC (Auto) Urine Total Protein Digoxin Salicylates Acetaminophen 01/01/20 01/01/20 01/01/20 04:19 06:56 10:52 WBC RBC Hgb Hct MCV MCH MCHC RDW Lymph % (Auto) [place] % (Auto) Eos % (Auto) Lymph # [place] # Eos # Seg Neutrophils % Monocytes % (Manual) Monocytes # (Manual) D-Dimer ABG pH ABG pO2 90.7 H ABG HCO3 29.1 H ABG O2 Saturation ABG Base Excess 3.8 H ABG Hemoglobin 8.1 L Oxyhemoglobin 94.5 L Sodium Potassium Chloride Carbon Dioxide BUN Creatinine Glucose POC Glucose 303 H 244 H Lactic Acid Calcium Magnesium AST ALT Lactate Dehydrogenase Total Creatine Kinase C-Reactive Protein Albumin Urine WBC (Auto) Urine Total Protein Digoxin Salicylates Acetaminophen 01/01/20 01/01/20 01/01/20 13:39 14:49 18:42 WBC RBC Hgb Hct MCV MCH MCHC RDW Lymph % (Auto) [place] % (Auto) Eos % (Auto) Lymph # [place] # Eos # Seg Neutrophils % Monocytes % (Manual) Monocytes # (Manual) D-Dimer ABG pH ABG pO2 ABG HCO3 ABG O2 Saturation ABG Base Excess ABG Hemoglobin Oxyhemoglobin Sodium 147 H Potassium Chloride 107.1 H Carbon Dioxide BUN 28 H Creatinine Glucose 207 H POC Glucose 263 H 188 H Lactic Acid Calcium Magnesium AST ALT Lactate Dehydrogenase Total Creatine Kinase C-Reactive Protein Albumin Urine WBC (Auto) Urine Total Protein Digoxin Salicylates Acetaminophen 01/02/20 01/02/20 01/02/20 02:22 03:58 05:00 WBC RBC 3.31 L Hgb 8.0 L Hct 26.9 L MCV 81 L MCH 24 L MCHC 30 L RDW 19.4 H Lymph % (Auto) [place] % (Auto) 9.4 H Eos % (Auto) 11.2 H Lymph # [place] # Eos # 0.8 H Seg Neutrophils % Monocytes % (Manual) Monocytes # (Manual) D-Dimer ABG pH ABG pO2 63.0 L ABG HCO3 31.6 H ABG O2 Saturation 91.8 L ABG Base Excess 5.5 H ABG Hemoglobin 8.6 L Oxyhemoglobin 89.6 L Sodium Potassium Chloride Carbon Dioxide BUN Creatinine Glucose POC Glucose 196 H Lactic Acid Calcium Magnesium AST ALT Lactate Dehydrogenase Total Creatine Kinase C-Reactive Protein Albumin Urine WBC (Auto) Urine Total Protein Digoxin Salicylates Acetaminophen 01/02/20 01/02/20 01/02/20 05:40 10:26 13:57 WBC RBC Hgb Hct MCV MCH MCHC RDW Lymph % (Auto) [place] % (Auto) Eos % (Auto) Lymph # [place] # Eos # Seg Neutrophils % Monocytes % (Manual) Monocytes # (Manual) D-Dimer ABG pH ABG pO2 ABG HCO3 ABG O2 Saturation ABG Base Excess ABG Hemoglobin Oxyhemoglobin Sodium Potassium Chloride Carbon Dioxide BUN Creatinine Glucose POC Glucose 189 H 157 H 178 H Lactic Acid Calcium Magnesium AST ALT Lactate Dehydrogenase Total Creatine Kinase C-Reactive Protein Albumin Urine WBC (Auto) Urine Total Protein Digoxin Salicylates Acetaminophen 01/02/20 01/03/20 01/03/20 21:27 03:12 05:26 WBC RBC Hgb Hct MCV MCH MCHC RDW Lymph % (Auto) [place] % (Auto) Eos % (Auto) Lymph # [place] # Eos # Seg Neutrophils % Monocytes % (Manual) Monocytes # (Manual) D-Dimer ABG pH 7.473 H ABG pO2 109.6 H ABG HCO3 30.4 H ABG O2 Saturation ABG Base Excess 6.2 H ABG Hemoglobin 9.9 L Oxyhemoglobin Sodium Potassium Chloride Carbon Dioxide BUN Creatinine Glucose POC Glucose 131 H 133 H Lactic Acid Calcium Magnesium AST ALT Lactate Dehydrogenase Total Creatine Kinase C-Reactive Protein Albumin Urine WBC (Auto) Urine Total Protein Digoxin Salicylates Acetaminophen 01/03/20 01/03/20 05:40 05:40 WBC RBC 3.45 L Hgb 8.3 L Hct 27.3 L MCV 79 L MCH 24 L MCHC 30 L RDW 19.3 H Lymph % (Auto) [place] % (Auto) Eos % (Auto) Lymph # [place] # Eos # Seg Neutrophils % Monocytes % (Manual) Monocytes # (Manual) D-Dimer ABG pH ABG pO2 ABG HCO3 ABG O2 Saturation ABG Base Excess ABG Hemoglobin Oxyhemoglobin Sodium 151 H Potassium Chloride 111.8 H Carbon Dioxide 31 H BUN 37 H Creatinine 1.8 H Glucose 187 H POC Glucose Lactic Acid Calcium Magnesium AST ALT Lactate Dehydrogenase Total Creatine Kinase C-Reactive Protein Albumin Urine WBC (Auto) Urine Total Protein Digoxin Salicylates Acetaminophen Chest x-ray: image reviewed Allied health notes reviewed: RT
[2020-01-03] MEDS ORDERED: MAGNESIUM CITRATE 300 ML ORAL LIQD PO ONE (10:00)
--- NOTE | 2020-01-03 10:23 | Progress Note ---
Assessment and Plan - Patient Problems (1) Acute kidney injury Current Visit: Yes Status: Acute Plan to address problem: Will monitor closely. Concerned for worsening pre-renal injury in setting of sepsis and hemodynamic instability and now with increasing pressor requirements. Avoid nephrotoxins, maintain MAP >65 mmHg. (2) Acute respiratory failure Current Visit: Yes Status: Acute Qualifiers: Plan to address problem: Management on vent per Pulmonary/ICU. (3) Hypernatremia Current Visit: Yes Status: Acute Plan to address problem: cont free water flushes 300cc q 4hr. strict I/Os (4) Pneumonia Current Visit: No Status: Acute Qualifiers: Pneumonia type: due to unspecified organism Laterality: left Lung lo cation: unspecified part of lung Qualified Code(s): J18.9 - Pneumonia, unspecified organism Plan to address problem: Management per primary/ICU team. (5) Diastolic CHF Current Visit: Yes Status: Acute Qualifiers: Heart failure chronicity: acute on chronic Qualified Code(s): I50.33 - Acute on chronic diastolic (congestive) heart failure Plan to address problem: Chest Xray is concerning for volume overload. IVF has been stopped at this time. (6) Obesity hypoventilation syndrome Current Visit: Yes Status: Acute Subjective Date of service: 01/03/20 Principal diagnosis: Ac. Hypoxemic Resp Failure; Septic Shock; Magdiel. PNA; PUI COVID-19; CHF; JOE Interval history: Pt remains on vent, onb vasopressor support with dopamin Objective - Vital Signs Vital signs: Vital Signs - 12hr 01/02/20 01/02/20 01/02/20 22:30 22:32 23:00 Temperature Pulse Rate 73 73 81 Pulse Rate [ Bilateral] Respiratory 24 24 24 Rate Respiratory Rate [Bilateral ] Blood Pressure 128/66 124/67 121/64 O2 Sat by Pulse 96 95 95 Oximetry 01/02/20 01/03/20 01/03/20 23:30 00:00 00:03 Temperature 99.8 F H Pulse Rate 94 H 87 92 H Pulse Rate [ Bilateral] Respiratory 24 23 Rate Respiratory Rate [Bilateral ] Blood Pressure 110/59 110/59 O2 Sat by Pulse 94 94 94 Oximetry 01/03/20 01/03/20 01/03/20 00:10 00:30 01:00 Temperature Pulse Rate 87 82 90 Pulse Rate [ Bilateral] Respiratory 24 24 Rate Respiratory Rate [Bilateral ] Blood Pressure 108/57 106/62 O2 Sat by Pulse 94 95 Oximetry 01/03/20 01/03/20 01/03/20 01:30 02:00 02:30 Temperature Pulse Rate 80 81 86 Pulse Rate [ Bilateral] Respiratory 24 24 24 Rate Respiratory Rate [Bilateral ] Blood Pressure 101/57 100/53 105/58 O2 Sat by Pulse 95 94 95 Oximetry 01/03/20 01/03/20 01/03/20 03:00 03:30 03:45 Temperature Pulse Rate 82 80 81 Pulse Rate [ Bilateral] Respiratory 24 24 Rate Respiratory Rate [Bilateral ] Blood Pressure 111/60 109/57 105/58 O2 Sat by Pulse 95 95 95 Oximetry 01/03/20 01/03/20 01/03/20 04:00 04:30 05:00 Temperature 100.0 F H Pulse Rate 78 83 96 H Pulse Rate [ Bilateral] Respiratory 24 24 15 Rate Respiratory Rate [Bilateral ] Blood Pressure 100/52 98/51 102/57 O2 Sat by Pulse 95 94 85 Oximetry 01/03/20 01/03/20 01/03/20 05:30 06:00 06:30 Temperature Pulse Rate 81 76 76 Pulse Rate [ Bilateral] Respiratory 24 16 18 Rate Respiratory Rate [Bilateral ] Blood Pressure 92/50 95/47 98/49 O2 Sat by Pulse 95 95 95 Oximetry 01/03/20 01/03/20 01/03/20 07:00 07:30 07:34 Temperature Pulse Rate 77 76 77 Pulse Rate [ 79 Bilateral] Respiratory 16 20 Rate Respiratory 24 Rate [Bilateral ] Blood Pressure 90/47 91/46 91/46 O2 Sat by Pulse 94 93 94 Oximetry 01/03/20 01/03/20 08:00 08:30 Temperature 97.8 F Pulse Rate 77 95 H Pulse Rate [ Bilateral] Respiratory 21 19 Rate Respiratory Rate [Bilateral ] Blood Pressure 97/48 94/45 O2 Sat by Pulse 93 91 Oximetry - General Appearance General appearance: chronically ill, sedated on ventilator, intubated EENT: ATNC, mucous membranes moist Neck: no JVD Respiratory: Present: Decreased Breath Sounds Cardiology: regular, S1S2 Gastrointestinal: normoactive bowel sounds Integumentary: no rash - Lab 01/03/20 05:40 01/03/20 05:40 Most recent lab results ABG pH 7.473 pH Units (7.350-7.450) H 06/29/20 03:12 ABG pCO2 42.5 mm Hg 01/03/20 03:12 ABG pO2 109.6 mm Hg (80.0-90.0) H 01/03/20 03:12 ABG HCO3 30.4 mmol/L (20.0-26.0) H 01/03/20 03:12 ABG O2 Saturation 98.1 % (95.0-99.0) 01/03/20 03:12 Calcium 9.7 mg/dL (8.4-10.2) 01/03/20 05:40 Phosphorus 3.70 mg/dL (2.5-4.5) 12/27/19 03:48 Magnesium 2.60 mg/dL (1.7-2.3) H 12/30/19 05:06 Urine Creatinine < 4.2 mg/dL (0.1-20.0) 12/25/19 16:45 Urine Sodium 10 mmol/L 12/25/19 16:45 Urine Total Protein < 4 mg/dL (5-11.8) L 12/25/19 16:45 Medications & Allergies - Medications Allergies/Adverse Reactions: Allergies No Known Allergies Allergy (Unverified 12/19/19 01:31) Home Medications: Home Medications Medication Instructions Recorded Confirmed Last Taken Type Ipratropium/Albuterol Sulfate 1 ampul IH TIDRT #90 ampul.neb 06/02/19 12/28/19 Unknown Rx [DUONEB *Not for PRN Use*] Aspirin [Aspirin BABY CHEW TAB] 81 mg PO DAILY 06/03/19 12/28/19 3 Days Ago History ~05/31/19 Desmopressin [Ddavp] 0.2 mg PO BID 06/03/19 12/28/19 3 Days Ago History ~05/31/19 Digoxin [Lanoxin] 0.125 mg PO DAILY 06/03/19 12/28/19 3 Days Ago History ~05/31/19 Folic Acid 100 mg PO DAILY 06/03/19 12/28/19 3 Days Ago History ~05/31/19 Furosemide [Lasix TAB] 40 mg PO QDAY 06/03/19 12/28/19 3 Days Ago History ~05/31/19 Insulin Lispro [Humalog 100 4 units SQ AC 06/03/19 12/28/19 3 Days Ago History UNITS/ML Kwikpen] ~05/31/19 Levothyroxine [Synthroid] 88 mcg PO QAM 06/03/19 12/28/19 3 Days Ago History ~05/31/19 Metformin HCl [metFORMIN] 1,000 mg PO BID 06/03/19 12/28/19 3 Days Ago History ~05/31/19 Potassium Chloride [K-Dur] 20 meq PO QDAY 06/03/19 12/28/19 3 Days Ago History ~05/31/19 carvediloL [Coreg] 6.25 mg PO BID 06/03/19 12/28/19 3 Days Ago History ~05/31/19 Famotidine [Pepcid] 20 mg PO QDAY #30 tablet 06/06/19 12/28/19 Unknown Rx Insulin NPH/Regular [NovoLIN 70/30] 50 unit SUB-Q BIDDIAB #100 units 06/06/19 12/28/19 Unknown Rx Active Medications: Generic Name Dose Route Start Last Admin Trade Name Freq PRN Reason Stop Dose Admin Acetaminophen 650 mg 12/29/19 09:21 12/29/19 09:26 Tylenol PO 650 mg Q4H PRN Administration Non Cardiac Pain or Temp>100.5 Albuterol/Ipratropium 1 ampul 12/18/19 14:00 01/03/20 07:34 Duoneb *Not For Prn Use* IH 1 ampul TIDRT SHANEL Administration Lipase/Protease/Amylase 1 each 12/19/19 08:29 Pancrecorry Cabrera 10,500 Unit FEEDTUBE PRN PRN For Clogged Feeding Tube Aspirin 81 mg 12/19/19 10:00 01/02/20 10:27 Baby Aspirin PO 81 mg DAILY SHANEL Administration Bisacodyl 10 mg 01/02/20 15:48 01/02/20 18:25 Dulcolax AL 10 mg QDAY PRN Administration Constipation Docusate Sodium 100 mg 01/01/20 22:00 01/02/20 22:29 Colace PO Not Given BID SHANEL Famotidine 20 mg 12/20/19 10:00 01/02/20 22:30 Pepcid PO Not Given BID SHANEL Fentanyl 50 mcg 12/27/19 16:57 Sublimaze IV Q10MIN PRN ANALGESIA Folic Acid 1 mg 12/19/19 10:00 01/02/20 10:27 Folvite PO 1 mg DAILY SHANEL Administration Heparin Sodium (Porcine) 5,000 unit 12/18/19 22:00 01/02/20 21:26 Heparin SUB-Q 5,000 unit Q12HR SHANEL Administration Hydrophilic Ointment 1 applic 12/18/19 12:35 Vaseline Lip Therapy TP Q2HR PRN Dry Lips Fentanyl Citrate 2,000 mcg in 100 mls @ 5.85 mls/hr 12/27/19 17:00 01/02/20 18:39 Fentanyl Drip Premix IV 1 mcg/kg/hr TITR SHANEL 5.85 mls/hr Administration Protocol 1 MCG/KG/HR Norepinephrine 4 mg in 250 mls @ 7.5 mls/hr 12/28/19 15:00 12/31/19 18:12 Levophed Drip 4 Mg/Ns 250 Ml IV 0 mcg/min TITR SHANEL 0 mls/hr Titration Protocol 2 MCG/MIN Linezolid 600 mg in 300 mls @ 300 mls/hr 12/29/19 15:00 01/02/20 21:26 Zyvox 600mg/300ml IV 300 mls/hr Q12HR SHANEL Administration Protocol Vasopressin 20 unit/ Sodium 101 mls @ 9.09 mls/hr 12/30/19 12:30 01/01/20 13:44 Chloride IV 0 units/min TITR SHANEL 0 mls/hr Titration Protocol 0.03 UNITS/MIN Cefepime HCl 2 gm in 100 mls @ 200 mls/hr 12/30/19 18:00 01/03/20 05:14 Cefepime/Ns 2 Gm/100 Ml IV 200 mls/hr Q12H SHANEL Administration Protocol Fluconazole 200 mg in 100 mls @ 100 mls/hr 12/30/19 18:00 01/02/20 18:38 Diflucan IV 100 mls/hr Q24H SHANEL Administration Protocol Dopamine HCl/Dextrose 800 mg in 250 mls @ 4.388 mls/hr 12/31/19 16:00 01/03/20 04:15 Intropin Drip 800 Mg/D5w 250 Ml IV 12 mcg/kg/min TITR SHANEL 26.325 mls/hr Administration Protocol 2 MCG/KG/MIN Dextrose/Sodium Chloride 1,000 mls @ 75 mls/hr 01/03/20 10:00 D5ns 0.2% IV DIRECT [facility] Insulin Glargine 35 units 01/01/20 22:00 01/02/20 22:29 Lantus SUB-Q Not Given QHS [facility] Insulin Glargine 35 units 01/01/20 11:00 01/03/20 08:50 Lantus SUB-Q Not Given QAMDIAB [facility] Insulin Human Lispro 0 unit 12/31/19 14:00 01/03/20 05:25 Humalog SUB-Q Not Given Q4HR [facility] Protocol Levothyroxine Sodium 88 mcg 12/19/19 06:00 01/03/20 05:57 Synthroid PO Not Given QAM@0600 [facility] Multi-Ingred Cream/Lotion/Oil/Oint 1 applic 12/18/19 12:35 Artificial Tears Ophth Oint OU Q4HR PRN Dry Eye(s) Polyethylene Glycol 17 gm 01/01/20 22:00 01/02/20 22:30 Miralax 3350 PO Not Given QHS [facility] Potassium Chloride 40 meq 12/29/19 10:00 01/02/20 10:26 Potassium Chloride FEEDTUBE 40 meq QDAY SHANEL Administration Simethicone 160 mg 01/01/20 18:00 01/03/20 05:57 Mylicon PO 01/04/20 17:59 Not Given Q6H [facility] Simple Syrup 15 ml 12/19/19 08:29 Simple Syrup FEEDTUBE PRN PRN Hypoglycemia Simple Syrup 30 ml 12/19/19 08:29 Simple Syrup FEEDTUBE PRN PRN Hypoglycemia Sodium Bicarbonate 325 mg 12/19/19 08:29 Sodium Bicarbonate FEEDTUBE PRN PRN For Clogged Feeding Tube Sodium Chloride 10 ml 12/18/19 22:00 01/02/20 21:26 Sodium Chloride Flush Syringe 10 Ml IV 10 ml BID SHANEL Administration Sodium Chloride 10 ml 12/18/19 13:31 Sodium Chloride Flush Syringe 10 Ml IV PRN PRN LINE FLUSH
[2020-01-03] MEDS: LINEZOLID 600 MG/300 ML BAG IV SCH ×2 (10:59→22:38)
[2020-01-03] MEDS: FOLIC ACID 1 MG TAB PO SCH (10:59)
[2020-01-03] MEDS: ASPIRIN 81 MG TAB CHEW PO SCH (10:59)
[2020-01-03] MEDS: HEPARIN 5,000 UNIT/1 ML VIAL SUB-Q SCH ×2 (10:59→22:37)
[2020-01-03] MEDS: POTASSIUM CHLORIDE 20 MEQ PACKET FEEDTUBE SCH (11:00)
[2020-01-03] MEDS: FAMOTIDINE 20 MG TAB PO SCH ×2 (11:00→22:36)
[2020-01-03] MEDS: DOCUSATE SODIUM 100 MG/10 ML ORAL LIQD PO SCH ×2 (11:00→22:37)
--- NOTE | 2020-01-03 12:05 | Progress Note ---
Assessment and Plan Transient sinus bradycardia -resolved echo: LVEF 45-50% TSH 2.3 Pneumonia negative COVID PCR x 2 Acute Respiratory failure Acute kidney injury positive MRSA-sputum Anemia Supportive cardiac management. Subjective Date of service: 01/03/20 Principal diagnosis: Ac. Hypoxemic Resp Failure; Septic Shock; Magdiel. PNA; PUI COVID-19; CHF; JOE Interval history: Intubated, unresponsive on the vent and on dopamine for support. Sinus rhythm on telemetry. Objective Vital Signs Temp Pulse Pulse Resp Resp BP Pulse Ox 01/03/20 11:00 83 15 96/47 93 01/03/20 10:30 89 23 112/55 93 01/03/20 10:00 83 24 92/46 92 01/03/20 09:30 81 20 106/52 95 01/03/20 09:00 77 21 85/42 93 01/03/20 08:30 95 H 19 94/45 91 01/03/20 08:00 97.8 F 77 21 97/48 93 01/03/20 07:34 77 79 24 91/46 94 01/03/20 07:30 76 20 91/46 93 01/03/20 07:00 77 16 90/47 94 01/03/20 06:30 76 18 98/49 95 01/03/20 06:00 76 16 95/47 95 01/03/20 05:30 81 24 92/50 95 01/03/20 05:00 96 H 15 102/57 85 01/03/20 04:30 83 24 98/51 94 01/03/20 04:00 100.0 F H 78 24 100/52 95 01/03/20 03:45 81 105/58 95 01/03/20 03:30 80 24 109/57 95 01/03/20 03:00 82 24 111/60 95 01/03/20 02:30 86 24 105/58 95 01/03/20 02:00 81 24 100/53 94 01/03/20 01:30 80 24 101/57 95 01/03/20 01:00 90 24 106/62 95 01/03/20 00:30 82 24 108/57 94 01/03/20 00:10 87 01/03/20 00:03 92 H 23 94 01/03/20 00:00 99.8 F H 87 110/59 94 01/02/20 23:30 94 H 24 110/59 94 01/02/20 23:00 81 24 121/64 95 01/02/20 22:32 73 24 124/67 95 01/02/20 22:30 73 24 128/66 96 01/02/20 22:16 87 17 116/63 95 01/02/20 22:00 83 24 97/55 95 01/02/20 21:30 95 H 14 93/57 94 01/02/20 21:00 82 20 99/50 95 01/02/20 20:45 81 26 H 01/02/20 20:30 83 24 100/55 94 01/02/20 20:00 99.7 F H 84 24 108/59 94 01/02/20 19:30 89 24 101/59 94 01/02/20 19:00 82 25 H 112/59 94 01/02/20 18:47 76 01/02/20 18:00 86 24 119/64 93 01/02/20 17:30 63 21 57/28 95 01/02/20 17:00 75 24 89/47 94 01/02/20 16:30 78 18 86/45 92 01/02/20 16:00 76 23 80/40 90 01/02/20 15:58 76 103/55 93 01/02/20 15:35 99.3 F 01/02/20 15:30 75 24 90/46 93 01/02/20 15:00 75 24 98/50 93 01/02/20 14:30 79 24 90/50 92 01/02/20 14:00 80 24 105/58 90 01/02/20 13:30 76 24 96/49 92 01/02/20 13:00 77 82 24 24 97/49 90 01/02/20 12:30 78 24 97/49 90 01/02/20 12:04 85 104/53 91 - Physical Examination General: Other (intubated on the vent) Cardiac: Positive: Reg Rate and Rhythm - Labs and Meds CBC 01/03/20 Range/Units 05:40 WBC 7.9 (4.5-11.0) K/mm3 RBC 3.45 L (3.65-5.03) M/mm3 Hgb 8.3 L (11.8-15.2) gm/dl Hct 27.3 L (35.5-45.6) % Plt Count 318 (140-440) K/mm3 Comprehensive Metabolic Panel 01/03/20 Range/Units 05:40 Sodium 151 H (137-145) mmol/L Potassium 3.8 (3.6-5.0) mmol/L Chloride 111.8 H (98-107) mmol/L Carbon Dioxide 31 H (22-30) mmol/L BUN 37 H (9-20) mg/dL Creatinine 1.8 H (0.8-1.5) mg/dL Glucose 187 H (75-100) mg/dL Calcium 9.7 (8.4-10.2) mg/dL - Allied health notes Allied health notes reviewed: nursing
[2020-01-03] MEDS: D5W/0.2% NACL 1,000 ML IV SCH (13:15)
--- NOTE | 2020-01-03 14:23 | Progress Note ---
Subjective Date of service: 01/03/20 Principal diagnosis: Ac. Hypoxemic Resp Failure; Septic Shock; Magdiel. PNA; PUI COVID-19; CHF; JOE Interval history: Patient remains intubated, on IV dopamine drip, noted low-grade fever. Objective - Constitutional Vitals: Vital Signs Temp Pulse Resp BP Pulse Ox 100.5 F H 87 24 115/59 94 01/03/20 12:00 01/03/20 13:00 01/03/20 13:00 01/03/20 13:00 01/03/20 13:00 Temperature -Last 24 Hours Temperature 100.5 F Temperature 97.8 F Temperature 100.0 F Temperature 99.8 F Temperature 99.7 F Temperature 99.3 F - Labs CBC & Chem 7: 01/03/20 05:40 01/03/20 05:40 Labs: Abnormal lab results 01/02/20 01/02/20 01/03/20 Range/Units 13:57 21:27 03:12 RBC (3.65-5.03) M/mm3 Hgb (11.8-15.2) gm/dl Hct (35.5-45.6) % MCV (84-94) fl MCH (28-32) pg MCHC (32-34) % RDW (13.2-15.2) % ABG pH 7.473 H (7.350-7.450) pH Units ABG pO2 109.6 H (80.0-90.0) mm Hg ABG HCO3 30.4 H (20.0-26.0) mmol/L ABG Base Excess 6.2 H (-2.0-3.0) mmol/L ABG Hemoglobin 9.9 L (14.0-18.0) gm/dl Sodium (137-145) mmol/L Chloride (98-107) mmol/L Carbon Dioxide (22-30) mmol/L BUN (9-20) mg/dL Creatinine (0.8-1.5) mg/dL Glucose (75-100) mg/dL POC Glucose 178 H 131 H (70-105) 01/03/20 01/03/20 01/03/20 Range/Units 05:26 05:40 05:40 RBC 3.45 L (3.65-5.03) M/mm3 Hgb 8.3 L (11.8-15.2) gm/dl Hct 27.3 L (35.5-45.6) % MCV 79 L (84-94) fl MCH 24 L (28-32) pg MCHC 30 L (32-34) % RDW 19.3 H (13.2-15.2) % ABG pH (7.350-7.450) pH Units ABG pO2 (80.0-90.0) mm Hg ABG HCO3 (20.0-26.0) mmol/L ABG Base Excess (-2.0-3.0) mmol/L ABG Hemoglobin (14.0-18.0) gm/dl Sodium 151 H (137-145) mmol/L Chloride 111.8 H (98-107) mmol/L Carbon Dioxide 31 H (22-30) mmol/L BUN 37 H (9-20) mg/dL Creatinine 1.8 H (0.8-1.5) mg/dL Glucose 187 H (75-100) mg/dL POC Glucose 133 H (70-105)
--- NOTE | 2020-01-03 14:29 | Progress Note ---
Assessment and Plan Cultures: Blood culture 12/18/2019 no growth today Urine culture 12/19/2019 no growth today Sputum culture 12/18/2019 no growth today Sputum culture 12/27/2019 MRSA Blood culture 12/18/2019 no growth today A/P: 59-year-old male past medical history diastolic CHF, OHS, HTN, DM 2, hypothyroidism #Sepsis with septic shock: Remains on dopamine drip, remains with low-grade fever, unclear source,? possible MRSA pneumonia. #MRSA pneumonia: sputum 12/26 +MRSA #Acute hypoxic respiratory failure: remains intubated Fio2 45,p8. CXR with increased interstitial consolidation and effusions #Diabetes: Tight glycemic control. #Multiple chronic comorbidities #JAGDEEP: creat is up #CHF Recs: -Repeat blood cultures today -Obtain CT of chest, abdomen and pelvis without IV contrast -continue cefepime and fluconazole -day 5 of 7 -extended -continue linezolid 600 mg IV q 12 hour - day 6 of 10 -monitor creatinine guarded prognosis will follow Nellie Felton MD [facility] ([facility]) Office [phone] Subjective Date of service: 01/03/20 Principal diagnosis: Ac. Hypoxemic Resp Failure; Septic Shock; Magdiel. PNA; PUI COVID-19; CHF; JOE Interval history: Patient remains intubated, on IV dopamine drip, noted low-grade fever. Objective - Constitutional Vitals: Vital Signs Temp Pulse Resp BP Pulse Ox 100.5 F H 87 24 115/59 94 01/03/20 12:00 01/03/20 13:00 01/03/20 13:00 01/03/20 13:00 01/03/20 13:00 Temperature -Last 24 Hours Temperature 100.5 F Temperature 97.8 F Temperature 100.0 F Temperature 99.8 F Temperature 99.7 F Temperature 99.3 F - Labs CBC & Chem 7: 01/03/20 05:40 01/03/20 05:40 Labs: Abnormal lab results 01/02/20 01/02/20 01/03/20 Range/Units 13:57 21:27 03:12 RBC (3.65-5.03) M/mm3 Hgb (11.8-15.2) gm/dl Hct (35.5-45.6) % MCV (84-94) fl MCH (28-32) pg MCHC (32-34) % RDW (13.2-15.2) % ABG pH 7.473 H (7.350-7.450) pH Units ABG pO2 109.6 H (80.0-90.0) mm Hg ABG HCO3 30.4 H (20.0-26.0) mmol/L ABG Base Excess 6.2 H (-2.0-3.0) mmol/L ABG Hemoglobin 9.9 L (14.0-18.0) gm/dl Sodium (137-145) mmol/L Chloride (98-107) mmol/L Carbon Dioxide (22-30) mmol/L BUN (9-20) mg/dL Creatinine (0.8-1.5) mg/dL Glucose (75-100) mg/dL POC Glucose 178 H 131 H (70-105) 01/03/20 01/03/20 01/03/20 Range/Units 05:26 05:40 05:40 RBC 3.45 L (3.65-5.03) M/mm3 Hgb 8.3 L (11.8-15.2) gm/dl Hct 27.3 L (35.5-45.6) % MCV 79 L (84-94) fl MCH 24 L (28-32) pg MCHC 30 L (32-34) % RDW 19.3 H (13.2-15.2) % ABG pH (7.350-7.450) pH Units ABG pO2 (80.0-90.0) mm Hg ABG HCO3 (20.0-26.0) mmol/L ABG Base Excess (-2.0-3.0) mmol/L ABG Hemoglobin (14.0-18.0) gm/dl Sodium 151 H (137-145) mmol/L Chloride 111.8 H (98-107) mmol/L Carbon Dioxide 31 H (22-30) mmol/L BUN 37 H (9-20) mg/dL Creatinine 1.8 H (0.8-1.5) mg/dL Glucose 187 H (75-100) mg/dL POC Glucose 133 H (70-105)
--- NOTE | 2020-01-03 14:33 | Progress Note ---
Assessment and Plan Assessment and plan: 59-year-old male past medical history diastolic CHF, OHS, HTN, DM 2, hypothyroidism admitted with confusion after being found by a neighbor. On arrival patient was found to be lethargic, and in respiratory distress and hypoxic. Patient was intubated in the ER because of hypoxic respiratory failure. Also noted to be hypotensive, placed on pressor admitted to ICU. Patient is negative for COVID-19, being treated for bilateral pneumonia. JAGDEEP improved with IV fluid, ID and critical care following. Chest x-ray: Left lower lobe airspace disease CT chest: 1. Patchy bilateral nodular and consolidative airspace opacities which are nonspecific but likely related to the reported history of Covid. 2. Multiple enlarged partially visualized left supraclavicular and lower cervical chain lymph nodes. While these are nonspecific and may be reactive, a neoplastic process is possible, recommend short interval follow-up after patient recovers from the acute episode. / Acute hypoxic respiratory failure Likely from bilateral pneumonia and diastolic heart failure Patient intubated, placed on ventilatory support. critical care team consulted in ED. Patient is extubated, continue nebulizer breathing treatment and as needed biPAP We will also do a swallow eval / Sepsis with shock cont IV antibiotic therapy, IV fluid resuscitation therapy, monitor urine output every shift, maintain mean arterial blood pressure greater than or equal to 65, s/p IV pressor support. / Suspected 2019-nCoV infection -ruled out with 2 negative test / Diastolic CHF Preserved EF based on prior echocardiogram Monitor weight strict I's/O, daily weight, monitor urine output every shift, submental oxygen, blood pressure control. /JAGDEEP, due to vasomotor nephropathy, present on admission -Creatinine improving, -Likely due to severe sepsis and hypotension /hypernatremia, -due to dehydration and sepsis -change fluid to D5W - monitor BMP /Hypokalemia, replete / Diabetes type II Initiate tube feeding diet Sliding scale insulin, Accu-Chek, hypoglycemia protocol. / Hypothyroidism Synthroid therapy, supportive care. / Bilateral pneumonia Pneumonia protocol: IV antibiotic therapy with rocephin for total 7 days, pulse oximetry, /Cervical lymphadenopathy -Reactive versus infectious process versus malignancy -Need repeat scanning and further staging when medically more stable -Pulmonology and ID following /Ileus: Hold tube feeds / HTN (hypertension) -hold BP meds as patient is hypotensive Monitor blood pressure every shift, continue medical management. /History of obstructive sleep apnea -Patient currently on mechanical ventilation /Acute metabolic encephalopathy Secondary to hyponatremia. /Urinary retention, suspected in the ER -Patient having good urine output now, will hold any CT scan -Continue IV fluid / DVT prophylaxis SCD to bilateral lower extremities while in bed, prophylactic heparin 12/19/19: Negative for COVID-19, continue pressor and wean off as tolerated, continue IV antibiotic and follow cultures. 12/19: Weaned off from pressor, sodium 156>157>153 today, creatinine 1.4>1.2>1.0. Continue IV fluid. Wean off from vent as tolerated. Follow ID recommendation 12/20: Extubated today, continue to monitor in the ICU overnight if clinically stable with transfer out to [facility]/telemetry tomorrow a.m.. Sodium 149 today, continue IV fluid and monitor BMP. Swallow eval, PT OT eval. 2nd text for covid is negative 12/21: transfer to [facility], start on gentle hydration. mechanical soft diet 12/22: placed back on bipap, Na 163 - start on D5W, monitor bmp 12/23: spoke to sister, updated [id number], also discussed Pulmonary, will likely need LTAC. Obtain Nephrology due to persistent Hypernatremia. Will start on free water and continue to monitor. Remains of restriants for safety due to intermittent confusion. 12/24: Still with intermittent encephalopathy. Requiring restraints. Hypernatremia still persist continue hypotonic solution. Nephrology consulted. Free water started this morning will increase dose. Replace potassium as hypokalemia still persist 12/26/19: Clinically improving, BIPAP now PRN AND HS, Na improving, continue renal follow up. I have called [facility] in case they would like to transfer the patient tested previously requested. 12/26: Hypernatermia still persist, had pulled out NGT yesterday, Continue free water, Continue Bipap, Cliff states he is not yet stable for transfer. Although from our critical care team this patient has been cleared for to be able to transfer. 12/27: Patient reintubated due to hypoxia. Continue current management as outlined by [employer] travel counselor. Sodium is improving. Continue current management monitor ABG and intermittent chest x-ray. [facility] updated. Patient sister also updated. 12/28: Sepsis persist. Antibiotics adjusted.-start linezolid 600 mg IV q 12 hour. Will adjust insulin for better management of blood glucose. 12/29: Shock still persist Levophed adjusted upward. Cliff advised patient not safe for travel at this time. Continue ventilatory support continue full support antibiotics adjusted by ID. Follow cultures 12/30: Still on the vent and pressors , Isolation secondary MRSA In sputum. 12/31: Continue current management, will need intermittent chest xray, adjust insulin For better blood glucose control. Check labs in am 01/01: KUB reviewed shows distended bowel with no no specific obstruction noted. We will hold tube feeds at this time place NG tube to low intermittent suction. Repeat chest x-ray in a.m. Hyponatremia is better kidney function appears to be improving continue to monitor. 01/02: Continue feeding tube to low intermittent suction over 500 residual came out in the last 16+ hours. Repeat blood culture per ID. Continue antibiotics. We will obtain the CT abdomen and pelvis without contrast as renal function is mildly increased today. Prognosis is guarded repeat imaging concerning for colon distention. Will defer to critical care if the fecal management system should be placed. The high probability of a clinically significant, sudden or life threatening deterioration of the [renal, pulmonary] system(s) required my full and direct attention, intervention and personal management. The aggregate critical care time was [35] minutes. This time is in addition to time spent performing reported procedures but includes the following: [x] Data Review and interpretation [x] Patient assessment and monitoring of vital signs [x] Documentation [x] Medication orders and management History Interval history: Patient seen and examined, still on full ventilatory support, no clinical change at this time. Remains on pressors. Hospitalist Physical - Physical exam Narrative exam: GENERAL: well-developed obese white male lying on bed on restraints due to confusion and pulling. ETT HEENT: Normocephalic. Atraumatic. No conjunctival congestion or icterus. Patient has moist mucous membranes. ETT NECK: Supple. Trachea midline. CHEST/LUNGS: Coarse breath sound auscultated bilaterally, HEART/CARDIOVASCULAR: Regular in rate and rhythm. S1 and S2 positive. ABDOMEN: Abdomen is soft, distended nontender. Patient has normal bowel sounds. SKIN: There is no rash. Warm and dry. NEURO: follows some command, AMS, no focal deficits MUSCULOSKELETAL: No joint effusion or tenderness. EXTRIMITY: No edema, no cyanosis or clubbing. PSYCH: Sedated - Constitutional Vitals: Temp Pulse Resp BP Pulse Ox 100.5 F H 87 24 115/59 94 01/03/20 12:00 01/03/20 13:00 01/03/20 13:00 01/03/20 13:00 01/03/20 13:00 General appearance: Present: severe distress HEART Score - HEART Score Troponin: Troponin T 0.011 ng/mL (0.00-0.029) 12/18/19 14:45 Results - Labs CBC & Chem 7: 01/03/20 05:40 01/03/20 05:40 Labs: Laboratory Last Values WBC 7.9 K/mm3 (4.5-11.0) 01/03/20 05:40 RBC 3.45 M/mm3 (3.65-5.03) L 01/03/20 05:40 Hgb 8.3 gm/dl (11.8-15.2) L 01/03/20 05:40 Hct 27.3 % (35.5-45.6) L 01/03/20 05:40 MCV 79 fl (84-94) L 01/03/20 05:40 MCH 24 pg (28-32) L 01/03/20 05:40 MCHC 30 % (32-34) L 01/03/20 05:40 RDW 19.3 % (13.2-15.2) H 01/03/20 05:40 Plt Count 318 K/mm3 (140-440) 01/03/20 05:40 Lymph % (Auto) 19.9 % (13.4-35.0) 01/02/20 05:00 Schuyler % (Auto) 9.4 % (0.0-7.3) H 01/02/20 05:00 Eos % (Auto) 11.2 % (0.0-4.3) H 01/02/20 05:00 Baso % (Auto) 0.8 % (0.0-1.8) 01/02/20 05:00 Lymph # 1.4 K/mm3 (1.2-5.4) 01/02/20 05:00 Schuyler # 0.7 K/mm3 (0.0-0.8) 01/02/20 05:00 Eos # 0.8 K/mm3 (0.0-0.4) H 01/02/20 05:00 Baso # 0.1 K/mm3 (0.0-0.1) 01/02/20 05:00 Add Manual Diff Complete 12/24/19 04:53 Total Counted 100 12/24/19 04:53 Seg Neutrophils % 58.7 % (40.0-70.0) 01/02/20 05:00 Seg Neuts % (Manual) 60.0 % (40.0-70.0) 12/24/19 04:53 Band Neutrophils % 0 % 12/24/19 04:53 Lymphocytes % (Manual) 20.0 % (13.4-35.0) 12/24/19 04:53 Reactive Lymphs % (Man) 0 % 12/24/19 04:53 Monocytes % (Manual) 15.0 % (0.0-7.3) H 12/24/19 04:53 Eosinophils % (Manual) 4.0 % (0.0-4.3) 12/24/19 04:53 Basophils % (Manual) 0 % (0.0-1.8) 12/24/19 04:53 Metamyelocytes % 1.0 % 12/24/19 04:53 Myelocytes % 0 % 12/24/19 04:53 Promyelocytes % 0 % 12/24/19 04:53 Blast Cells % 0 % 12/24/19 04:53 Nucleated RBC % Not Reportable 12/24/19 04:53 Seg Neutrophils # 4.0 K/mm3 (1.8-7.7) 01/02/20 05:00 Seg Neutrophils # Man 3.5 K/mm3 (1.8-7.7) 12/24/19 04:53 Band Neutrophils # 0.0 K/mm3 12/24/19 04:53 Lymphocytes # (Manual) 1.2 K/mm3 (1.2-5.4) 12/24/19 04:53 Abs React Lymphs (Man) 0.0 K/mm3 12/24/19 04:53 Monocytes # (Manual) 0.9 K/mm3 (0.0-0.8) H 12/24/19 04:53 Eosinophils # (Manual) 0.2 K/mm3 (0.0-0.4) 12/24/19 04:53 Basophils # (Manual) 0.0 K/mm3 (0.0-0.1) 12/24/19 04:53 Metamyelocytes # 0.1 K/mm3 12/24/19 04:53 Myelocytes # 0.0 K/mm3 12/24/19 04:53 Promyelocytes # 0.0 K/mm3 12/24/19 04:53 Blast Cells # 0.0 K/mm3 12/24/19 04:53 WBC Morphology Not Reportable 12/24/19 04:53 Hypersegmented Neuts Not Reportable 12/24/19 04:53 Hyposegmented Neuts Not Reportable 12/24/19 04:53 Hypogranular Neuts Not Reportable 12/24/19 04:53 Smudge Cells Not Reportable 12/24/19 04:53 Toxic Granulation Not Reportable 12/24/19 04:53 Toxic Vacuolation Not Reportable 12/24/19 04:53 Dohle Bodies Not Reportable 12/24/19 04:53 Pelger-Huet Anomaly Not Reportable 12/24/19 04:53 Mervin Rods Not Reportable 12/24/19 04:53 Platelet Estimate Consistent w auto 12/24/19 04:53 Clumped Platelets Not Reportable 12/24/19 04:53 Plt Clumps, EDTA Not Reportable 12/24/19 04:53 Large Platelets Not Reportable 12/24/19 04:53 Giant Platelets Not Reportable 12/24/19 04:53 Platelet Satelliting Not Reportable 12/24/19 04:53 Plt Morphology Comment Not Reportable 12/24/19 04:53 RBC Morphology Not Reportable 12/24/19 04:53 Dimorphic RBCs Not Reportable 12/24/19 04:53 Polychromasia Rare 12/24/19 04:53 Hypochromasia 1+ 12/24/19 04:53 Poikilocytosis Not Reportable 12/24/19 04:53 Anisocytosis 1+ 12/24/19 04:53 Microcytosis Few 12/24/19 04:53 Macrocytosis Not Reportable 12/24/19 04:53 Spherocytes Not Reportable 12/24/19 04:53 Pappenheimer Bodies Not Reportable 12/24/19 04:53 Sickle Cells Not Reportable 12/24/19 04:53 Target Cells Not Reportable 12/24/19 04:53 Tear Drop Cells Not Reportable 12/24/19 04:53 Ovalocytes Few 12/24/19 04:53 Helmet Cells Not Reportable 12/24/19 04:53 [place] Bodies Not Reportable 12/24/19 04:53 [place] Rings Not Reportable 12/24/19 04:53 Ileana Cells Not Reportable 12/24/19 04:53 Bite Cells Not Reportable 12/24/19 04:53 Crenated Cell Not Reportable 12/24/19 04:53 Elliptocytes Not Reportable 12/24/19 04:53 Acanthocytes (Spur) Not Reportable 12/24/19 04:53 Rouleaux Not Reportable 12/24/19 04:53 Hemoglobin C Crystals Not Reportable 12/24/19 04:53 Schistocytes Not Reportable 12/24/19 04:53 Malaria parasites Not Reportable 12/24/19 04:53 Gianni Bodies Not Reportable 12/24/19 04:53 Hem Pathologist Commnt No 12/24/19 04:53 PT 14.0 Sec. (12.2-14.9) 12/18/19 14:45 INR 1.10 (0.87-1.13) 12/18/19 14:45 APTT 29.4 Sec. (24.2-36.6) 12/18/19 14:45 D-Dimer 534.45 ng/mlDDU (0-234) H 12/18/19 14:45 ABG pH 7.473 pH Units (7.350-7.450) H 01/03/20 03:12 ABG pCO2 42.5 mm Hg 01/03/20 03:12 ABG pO2 109.6 mm Hg (80.0-90.0) H 01/03/20 03:12 ABG HCO3 30.4 mmol/L (20.0-26.0) H 01/03/20 03:12 ABG O2 Saturation 98.1 % (95.0-99.0) 01/03/20 03:12 ABG O2 Content 13.5 (0.0-44) 01/03/20 03:12 ABG Base Excess 6.2 mmol/L (-2.0-3.0) H 01/03/20 03:12 ABG Hemoglobin 9.9 gm/dl (14.0-18.0) L 01/03/20 03:12 ABG Carboxyhemoglobin 1.7 % (0.0-5.0) 01/03/20 03:12 ABG Methemoglobin 0.7 % (0.0-1.5) 01/03/20 03:12 Oxyhemoglobin 95.7 % (95.0-99.0) 01/03/20 03:12 FiO2 55 % 01/03/20 03:12 Sodium 151 mmol/L (137-145) H 01/03/20 05:40 Potassium 3.8 mmol/L (3.6-5.0) 01/03/20 05:40 Chloride 111.8 mmol/L (98-107) H 01/03/20 05:40 Carbon Dioxide 31 mmol/L (22-30) H 01/03/20 05:40 Anion Gap 12 mmol/L 01/03/20 05:40 BUN 37 mg/dL (9-20) H 01/03/20 05:40 Creatinine 1.8 mg/dL (0.8-1.5) H 01/03/20 05:40 Estimated GFR 47 ml/min 01/03/20 05:40 BUN/Creatinine Ratio 21 % 01/03/20 05:40 Glucose 187 mg/dL (75-100) H 01/03/20 05:40 POC Glucose 133 (70-105) H 01/03/20 05:26 Lactic Acid 1.70 mmol/L (0.7-2.0) 12/30/19 05:06 Calcium 9.7 mg/dL (8.4-10.2) 01/03/20 05:40 Phosphorus 3.70 mg/dL (2.5-4.5) 12/27/19 03:48 Magnesium 2.60 mg/dL (1.7-2.3) H 12/30/19 05:06 Ferritin 83.4 ng/mL (13.0-400.0) 12/18/19 14:45 Total Bilirubin 0.30 mg/dL (0.1-1.2) 12/19/19 04:13 AST 85 units/L (5-40) H 12/19/19 04:13 ALT 61 units/L (7-56) H 12/19/19 04:13 Alkaline Phosphatase 80 units/L (35-129) 12/19/19 04:13 Ammonia 39.0 umol/L (25-60) 12/18/19 14:45 Lactate Dehydrogenase 235 units/L (91-180) H 12/18/19 14:45 Lactate Dehydrogenase 236 units/L (91-180) H 12/18/19 14:45 Total Creatine Kinase 40 units/L (55-170) L 12/18/19 14:45 Troponin T 0.011 ng/mL (0.00-0.029) 12/18/19 14:45 C-Reactive Protein 8.40 mg/dL (0.00-1.30) H 12/18/19 14:45 C-Reactive Protein 8.50 mg/dL (0.00-1.30) H 12/18/19 14:45 Total Protein 6.8 g/dL (6.3-8.2) 12/19/19 04:13 Albumin 3.0 g/dL (3.9-5) L 12/19/19 04:13 Albumin/Globulin Ratio 0.8 % 12/19/19 04:13 Procalcitonin 0.22 ng/mL (<0.15) 12/18/19 14:45 TSH 2.300 mlU/mL (0.270-4.200) 12/18/19 14:45 Urine Color Yellow (Yellow) 12/19/19 16:50 Urine Turbidity Clear (Clear) 12/19/19 16:50 Urine pH 5.0 (5.0-7.0) 12/19/19 16:50 Ur Specific [place] 1.010 (1.003-1.030) 12/19/19 16:50 Urine Protein <15 mg/dl mg/dL (Negative) 12/19/19 16:50 Urine Glucose (UA) 150 mg/dL (Negative) 12/19/19 16:50 Urine Ketones Neg mg/dL (Negative) 12/19/19 16:50 Urine Blood Neg (Negative) 12/19/19 16:50 Urine Nitrite Neg (Negative) 12/19/19 16:50 Urine Bilirubin Neg (Negative) 12/19/19 16:50 Urine Urobilinogen < 2.0 mg/dL (<2.0) 12/19/19 16:50 Ur Leukocyte Esterase Tr (Negative) 12/19/19 16:50 Urine WBC (Auto) 7.0 /HPF (0.0-6.0) H 12/19/19 16:50 Urine RBC (Auto) 4.0 /HPF (0.0-6.0) 12/19/19 16:50 U Epithel Cells (Auto) 1.0 /HPF (0-13.0) 12/19/19 16:50 Urine Bacteria (Auto) 1+ /HPF (Negative) 12/19/19 16:50 Urine Mucus Few /HPF 12/19/19 16:50 Urine Osmolality 140 Mosm/kg 12/25/19 16:45 Urine Creatinine < 4.2 mg/dL (0.1-20.0) 12/25/19 16:45 Urine Sodium 10 mmol/L 12/25/19 16:45 Urine Total Protein < 4 mg/dL (5-11.8) L 12/25/19 16:45 Digoxin 0.3 ng/mL (0.9-2.0) L 12/18/19 14:45 Salicylates < 0.3 mg/dL (2.8-20.0) L 12/18/19 14:45 Acetaminophen < 5.0 ug/mL (10.0-30.0) L 12/18/19 14:45 Plasma/Serum Alcohol < 0.01 % (0-0.07) 12/18/19 14:45 Coronavirus (PCR) Negative (Negative) 12/21/19 14:45 Blood Type A POSITIVE 12/18/19 14:45 Antibody Screen Negative 12/18/19 14:45 Microbiology: Microbiology 12/29/19 15:41 Peripheral/Venous Blood Culture - Preliminary NO GROWTH AFTER 4 DAYS 12/29/19 15:44 Peripheral/Venous Blood Culture - Preliminary NO GROWTH AFTER 4 DAYS 12/29/19 13:03 Peripheral/Venous Blood Culture - Preliminary NO GROWTH AFTER 4 DAYS 12/29/19 13:42 Peripheral/Venous Blood Culture - Preliminary NO GROWTH AFTER 4 DAYS - Diagnostic Impressions Diagnostic Impressions: Echocardiogram 12/28/19 14:07 Transthoracic Echocardiogram Indication: SOB BP: 95/51 HR: 99 Conclusions *The left ventricular chamber size is mildly dilated. *There is no left ventricular hypertrophy. *Global left ventricular systolic function is mildly decreased. *The estimated ejection fraction is 45-50%. *Abnormal left ventricular diastolic filling is observed, consistent with impaired relaxation. *The right ventricular global systolic function is mildly reduced. *The right ventricular systolic pressure is calculated at 53 mmHg. Findings Left Ventricle: The left ventricular chamber size is mildly dilated. There is no left ventricular hypertrophy. Global left ventricular systolic function is mildly decreased. The estimated ejection fraction is 45-50%. Abnormal left ventricular diastolic filling is observed, consistent with impaired relaxation. Left Atrium: The left atrial chamber size is normal. Right Ventricle: The right ventricular cavity size is normal. The right ventricular global systolic function is mildly reduced. Right Atrium: The right atrial cavity size is normal. Aortic Valve: The aortic valve leaflets are mildly thickened. There is no evidence of aortic regurgitation. Mitral Valve: The mitral valve leaflets are mildly thickened. There is no evidence of mitral regurgitation. Tricuspid Valve: The tricuspid valve leaflets are normal. There is mild tricuspid regurgitation. The right ventricular systolic pressure is calculated at 53 mmHg. Pulmonic Valve: The pulmonic valve appears normal. There is trace pulmonic regurgitation. Pericardium: There is no pericardial effusion. Aorta: The aorta appears normal. Venous: The inferior vena cava is dilated. Measurements Chambers 2D Name Value Normal Range IVSd (2D) 1.08 cm (0.6 - 1.1) LVPWd (2D) 1 cm (0.6 - 1.1) LVIDd (2D) 4.67 cm (3.7 - 5.6) LVIDs (2D) 3.89 cm (2 - 3.8) LV FS (2D) 16.76 % - EF Teichholz (2D) 35.14 % - Ao root diameter (2D) 2.86 cm (2 - 3.7) Volumes/Mass Name Value Normal Range LA ESV SP 4CH (A/L) 31.8 ml - LA ESV SP 2CH (A/L) 27.37 ml - LA ESV BP (A/L) 33.43 ml - LA ESV BP (A/L) index 14.11 ml/m2 - LA ESV SP 4CH (MOD) 26.83 ml - LA ESV SP 2CH (MOD) 29.59 ml - LA ESV BP (MOD) 30.47 ml - LA ESV BP (MOD) index 12.86 ml/m2 - Diastolic/Systolic Function Name Value Normal Range MV E-wave Vmax 0.39 m/sec - MV deceleration time 115.69 msec - MV A-wave Vmax 0.63 m/sec - MV E:A ratio 0.62 ratio - Aortic Valve Name Value Normal Range AV Vmax 1.14 m/sec - AV VTI 20.1 cm - AV peak gradient 5.17 mmHg - AV mean gradient 3.89 mmHg - LVOT diameter 2.02 cm - LVOT Vmax 0.99 m/sec - LVOT VTI 16.45 cm - LVOT peak gradient 3.95 mmHg - LVOT mean gradient 2.45 mmHg - SV LVOT 52.45 ml - RALPH (continuity Vmax) 2.78 cm2 - RALPH (continuity VTI) 2.61 cm2 - Tricuspid Valve Name Value Normal Range TR Vmax 3.36 m/sec - TR peak gradient 45 mmHg - RAP 8 mmHg - RVSP 53 mmHg - IVC diameter 2.33 cm (1.2 - 2.3) Pulmonic Valve/Qp:Qs Name Value Normal Range PV Vmax 0.89 m/sec - PV peak gradient 3.16 mmHg - AK end-diastolic Vmax 1.42 m/sec - PV acceleration time 79.92 msec - Sykes/IV: Voiding Method Condom Catheter IV Catheter Type [Right Upper PICC Line arm] IV Catheter Type [Right Leg] Intra-osseous IV Catheter Type [Right Wrist] Peripheral IV IV Catheter Type [Right Hand] INT / Saline Lock IV Catheter Type [Left Hand] INT / Saline Lock IV Catheter Type [Left Forearm INT / Saline Lock ] IV Catheter Type [Left Triple Lumen Cath Internal Jugular] Active Medications - Current Medications Current Medications: Generic Name Dose Route Start Last Admin Trade Name Freq PRN Reason Stop Dose Admin Acetaminophen 650 mg 12/29/19 09:21 12/29/19 09:26 Tylenol PO 650 mg Q4H PRN Administration Non Cardiac Pain or Temp>100.5 Albuterol/Ipratropium 1 ampul 12/18/19 14:00 01/03/20 13:42 Duoneb *Not For Prn Use* IH 1 ampul TIDRT SHANEL Administration Lipase/Protease/Amylase 1 each 12/19/19 08:29 Erendira Cabrera 10,500 Unit FEEDTUBE PRN PRN For Clogged Feeding Tube Aspirin 81 mg 12/19/19 10:00 01/03/20 10:59 Baby Aspirin PO 81 mg DAILY SHANEL Administration Bisacodyl 10 mg 01/02/20 15:48 01/02/20 18:25 Dulcolax AK 10 mg QDAY PRN Administration Constipation Docusate Sodium 100 mg 01/01/20 22:00 01/03/20 11:00 Colace PO 100 mg BID SHANEL Administration Famotidine 20 mg 12/20/19 10:00 01/03/20 11:00 Pepcid PO 20 mg BID SHANEL Administration Fentanyl 50 mcg 12/27/19 16:57 Sublimaze IV Q10MIN PRN ANALGESIA Folic Acid 1 mg 12/19/19 10:00 01/03/20 10:59 Folvite PO 1 mg DAILY SHANEL Administration Heparin Sodium (Porcine) 5,000 unit 12/18/19 22:00 01/03/20 10:59 Heparin SUB-Q 5,000 unit Q12HR SHANEL Administration Hydrophilic Ointment 1 applic 12/18/19 12:35 Vaseline Lip Therapy TP Q2HR PRN Dry Lips Fentanyl Citrate 2,000 mcg in 100 mls @ 5.85 mls/hr 12/27/19 17:00 01/02/20 18:39 Fentanyl Drip Premix IV 1 mcg/kg/hr TITR SHANEL 5.85 mls/hr Administration Protocol 1 MCG/KG/HR Norepinephrine 4 mg in 250 mls @ 7.5 mls/hr 12/28/19 15:00 12/31/19 18:12 Levophed Drip 4 Mg/Ns 250 Ml IV 0 mcg/min TITR SHANEL 0 mls/hr Titration Protocol 2 MCG/MIN Linezolid 600 mg in 300 mls @ 300 mls/hr 12/29/19 15:00 01/03/20 10:59 Zyvox 600mg/300ml IV 01/07/20 22:59 300 mls/hr Q12HR SHANEL Administration Protocol Vasopressin 20 unit/ Sodium 101 mls @ 9.09 mls/hr 12/30/19 12:30 01/01/20 13:44 Chloride IV 0 units/min TITR SHANEL 0 mls/hr Titration Protocol 0.03 UNITS/MIN Cefepime HCl 2 gm in 100 mls @ 200 mls/hr 12/30/19 18:00 01/03/20 05:14 Cefepime/Ns 2 Gm/100 Ml IV 01/03/20 17:59 200 mls/hr Q12H SHANEL Administration Protocol Fluconazole 200 mg in 100 mls @ 100 mls/hr 12/30/19 18:00 01/02/20 18:38 Diflucan IV 01/03/20 18:59 100 mls/hr Q24H SHANEL Administration Protocol Dopamine HCl/Dextrose 800 mg in 250 mls @ 4.388 mls/hr 12/31/19 16:00 01/03/20 13:47 Intropin Drip 800 Mg/D5w 250 Ml IV 18 mcg/kg/min TITR SHANEL 39.488 mls/hr Administration Protocol 2 MCG/KG/MIN Dextrose/Sodium Chloride 1,000 mls @ 75 mls/hr 01/03/20 10:00 D5ns 0.2% IV DIRECT [facility] Insulin Glargine 35 units 01/01/20 22:00 01/02/20 22:29 Lantus SUB-Q Not Given QHS [facility] Insulin Glargine 35 units 01/01/20 11:00 01/03/20 08:50 Lantus SUB-Q Not Given QAMDIAB [facility] Insulin Human Lispro 0 unit 12/31/19 14:00 01/03/20 11:05 Humalog SUB-Q Not Given Q4HR [facility] Protocol Levothyroxine Sodium 88 mcg 12/19/19 06:00 01/03/20 05:57 Synthroid PO Not Given QAM@0600 [facility] Multi-Ingred Cream/Lotion/Oil/Oint 1 applic 12/18/19 12:35 Artificial Tears Ophth Oint OU Q4HR PRN Dry Eye(s) Polyethylene Glycol 17 gm 01/01/20 22:00 01/02/20 22:30 Miralax 3350 PO Not Given QHS [facility] Potassium Chloride 40 meq 12/29/19 10:00 01/03/20 11:00 Potassium Chloride FEEDTUBE 40 meq QDAY SHANEL Administration Simethicone 160 mg 01/01/20 18:00 01/03/20 11:09 Mylicon PO 01/04/20 17:59 160 mg Q6H SHANEL Administration Simple Syrup 15 ml 12/19/19 08:29 Simple Syrup FEEDTUBE PRN PRN Hypoglycemia Simple Syrup 30 ml 12/19/19 08:29 Simple Syrup FEEDTUBE PRN PRN Hypoglycemia Sodium Bicarbonate 325 mg 12/19/19 08:29 Sodium Bicarbonate FEEDTUBE PRN PRN For Clogged Feeding Tube Sodium Chloride 10 ml 12/18/19 22:00 01/03/20 11:01 Sodium Chloride Flush Syringe 10 Ml IV 10 ml BID SHANEL Administration Sodium Chloride 10 ml 12/18/19 13:31 Sodium Chloride Flush Syringe 10 Ml IV PRN PRN LINE FLUSH Nutrition/Malnutrition Assess - Dietary Evaluation Nutrition/Malnutrition Findings: Nutrition Notes Start: 12/19/19 08:16 Freq: Status: Active Protocol: Document 12/30/19 12:15 LM (Rec: 12/30/19 12:19 LM [email or web address]) Nutrition Notes Initial or Follow up Reassessment Current Diagnosis Diabetes,Sepsis,Hypertension, Heart Failure,Respiratory Failure Other Pertinent Diagnosis Suspected COVID-19, pneu Current Diet Vital AF 1.2 at 65ml/hr Labs/Tests Na 159 K 3.2 Cr 1.9 POC glu 399 Pertinent Medications Levophed Humalog Height 6 ft 2 in Weight 117 kg [place] Body Weight (kg) 86.36 BMI 33.1 Subjective/Other Information Pt tolerating TF. Percent of energy/protein needs met: 94%/68% Burn Absent Trauma Absent Current % PO Negligible Minimum of two criteria No physical signs of malnutrition #1 Nutrition Diagnosis Inadequate oral intake Diagnosis Progress(for reassessment Continues documentation) Is patient on ventilator? Yes Is Patient Ambulatory and/or Out of Bed No REE-([facility]-confined to bed) 2469.960 Kcal/Kg value to use for calculation 17 Approximate Energy Requirements Using 1989 kcal/Kg Calculation Used for Recommendations Kcal/kg Additional Notes Protein: 172g (>/=2g/kg using IBW 86kg) Fluid 1ml/kcal Nutrition Intervention Change Diet Order: TF Nutrition Support: Vital AF 1.2 at 65ml/hr Flush 300ml q4h for hypernatremia Flush 100ml q4h once resolved Kcal 1,872 Protein (gm) 117 Fluid (mL) 1,265 Goal #1 TF tolerance Goal #2 Meet at least 75% of energy and protein needs Anticipated Discharge Needs: unable to determine at this time Follow-Up By: 01/04/20 Additional Comments F/U for TF tolerance
[2020-01-03] MEDS: fentaNYL DRIP Premix 2,000 MCG/100 ML BAG IV SCH (14:59)
[2020-01-03] MEDS: FLUCONAZOLE 200 MG 200 MG/100 ML BAG IV SCH (18:31)
[2020-01-03] MEDS: ACETAMINOPHEN 325 MG/10.15 ML ORAL LIQD UNIT DOSE PO PRN (18:31)
[2020-01-03] MEDS: POLYETHYLENE GLYCOL 3350 17 GM POWDER PO SCH (22:37)
--- NOTE | 2020-01-03 23:12 | Cat Scan Report ---
CT CHEST, ABDOMEN, AND PELVIS WITHOUT IV CONTRAST INDICATION: Septic shock, not better on broad spectrum antibiotics. Oral Contrast given, (Gastroview). COMPARISON: CT chest 12/18/2019, no prior abdomen/pelvis CTs TECHNIQUE: All CT scans at this location are performed using CT dose reduction for ALARA by means of automated e xposure control. Axial CT images were obtained through the chest, abdomen, and pelvis. FINDINGS: Skeletal System: No acute abnormality. CHEST: Heart: Normal. Thoracic Aorta: No acute abnormality. Mediastinum & Lisbeth: Shotty nodes are stable. Lungs: Predominantly dependent bilateral groundglass and consolidative changes have worsened. Pleura: There is a new small left pleural effusion. No pneumothorax. Airways: No significant abnormality. Additional Findings: Endotracheal tube and esophagogastric tube are in satisfactory position. Extensi ve left supraclavicular and left cervical adenopathy is again noted. This appears slightly worsened. ABDOMEN: Liver: Steatosis. Gallbladder: Removed. Bile Ducts: No significant abnormality. Pancreas: No significant abnormality. Spleen: Mild splenomegaly. Adrenals: No significant abnormality. Right Kidney and Proximal Ureter: Single nonobstructing calyceal stone. Left Kidney and Proximal Ureter: No significant abnormality. Stomach and Bowel: No significant abnormality. Lymph Nodes: Shotty retroperitoneal nodes are noted diffusely. These are not pathologically enlarged. Aorta: No significant abnormality. IVC: No significant abnormality. Additional Findings: None. PELVIS: Urinary Bladder and Distal Ureters: No significant abnormality. Appendix: No significant abnormality. Colon: No significant abnormality. Free Fluid: None. Lymph Nodes: Shotty iliac chain and groin nodes are noted. Additional Findings: None. IMPRESSION: 1. Predominantly dependent bilateral consolidative and groundglass changes throughout both lungs have worsened since the prior. There is a new small left pleural effusion as well. These findings could b e seen in the setting of pulmonary edema with associated superimposed infectious process. There is no cardiomegaly. 2. Left cervical/supraclavicular adenopathy appears slightly increased. This is nonspecific. However, there are shoddy nodes throughout the retroperitoneum and within the pelvis, and the spleen is mildl y enlarged. Taken together, these findings are concerning for lymphoproliferative process such as lym phoma. Signer Name: Donnell Sánchez MD Signed: 01/03/2020 11:07 PM Workstation Name: [email or web address]
[2020-01-04] MEDS: INSULIN LISPRO 100 UNIT/ML SUB-Q SCH ×6 (02:05→21:59)
[2020-01-04] MEDS: DOPamine/D5W 800 MG/250 ML 800 MG/250 ML BAG IV SCH ×3 (02:55→20:54)
[2020-01-04] MEDS: fentaNYL DRIP Premix 2,000 MCG/100 ML BAG IV SCH (02:57)
[2020-01-04 03:57] LABS: ABG Base Excess -6.4 mmol/L (-2.0-3.0); ABG Methemoglobin 0.7 % (0.0-1.5); ABG Oxygen Saturation 94.5 % (95.0-99.0); ABG PCO2 43.3 mm Hg; ABG PH 7.282 pH Units (7.350-7.450); ABG PO2 73.2 mm Hg (80.0-90.0)
[2020-01-04] MEDS: SIMETHICONE 80 MG CHEW TAB PO SCH ×2 (05:45→12:35)
[2020-01-04] MEDS: LEVOTHYROXINE 88 MCG TAB PO SCH (05:45)
--- NOTE | 2020-01-04 07:50 | Progress Note ---
Assessment and Plan Assessment and plan: 59-year-old male past medical history diastolic CHF, OHS, HTN, DM 2, hypothyroidism admitted with confusion after being found by a neighbor. On arrival patient was found to be lethargic, and in respiratory distress and hypoxic. Patient was intubated in the ER because of hypoxic respiratory failure. Also noted to be hypotensive, placed on pressor admitted to ICU. Patient is negative for COVID-19, being treated for bilateral pneumonia. JAGDEEP improved with IV fluid, ID and critical care following. Chest x-ray: Left lower lobe airspace disease CT chest: 1. Patchy bilateral nodular and consolidative airspace opacities which are nonspecific but likely related to the reported history of Covid. 2. Multiple enlarged partially visualized left supraclavicular and lower cervical chain lymph nodes. While these are nonspecific and may be reactive, a neoplastic process is possible, recommend short interval follow-up after patient recovers from the acute episode. / Acute hypoxic respiratory failure Likely from bilateral pneumonia and diastolic heart failure Patient intubated, placed on ventilatory support. critical care team consulted in ED. Patient is extubated, continue nebulizer breathing treatment and as needed biPAP We will also do a swallow eval / Sepsis with shock cont IV antibiotic therapy, IV fluid resuscitation therapy, monitor urine output every shift, maintain mean arterial blood pressure greater than or equal to 65, s/p IV pressor support. / Suspected 2019-nCoV infection -ruled out with 2 negative test / Diastolic CHF Preserved EF based on prior echocardiogram Monitor weight strict I's/O, daily weight, monitor urine output every shift, submental oxygen, blood pressure control. /JAGDEEP, due to vasomotor nephropathy, present on admission -Creatinine improving, -Likely due to severe sepsis and hypotension /hypernatremia, -due to dehydration and sepsis -change fluid to D5W - monitor BMP /Hypokalemia, replete / Diabetes type II Initiate tube feeding diet Sliding scale insulin, Accu-Chek, hypoglycemia protocol. / Hypothyroidism Synthroid therapy, supportive care. / Bilateral pneumonia Pneumonia protocol: IV antibiotic therapy with rocephin for total 7 days, pulse oximetry, /Cervical lymphadenopathy -Reactive versus infectious process versus malignancy -Need repeat scanning and further staging when medically more stable -Pulmonology and ID following /Ileus: Hold tube feeds / HTN (hypertension) -hold BP meds as patient is hypotensive Monitor blood pressure every shift, continue medical management. /History of obstructive sleep apnea -Patient currently on mechanical ventilation /Acute metabolic encephalopathy Secondary to hyponatremia. /Urinary retention, suspected in the ER -Patient having good urine output now, will hold any CT scan -Continue IV fluid / DVT prophylaxis SCD to bilateral lower extremities while in bed, prophylactic heparin 12/19/19: Negative for COVID-19, continue pressor and wean off as tolerated, continue IV antibiotic and follow cultures. 12/19: Weaned off from pressor, sodium 156>157>153 today, creatinine 1.4>1.2>1.0. Continue IV fluid. Wean off from vent as tolerated. Follow ID recommendation 12/20: Extubated today, continue to monitor in the ICU overnight if clinically stable with transfer out to [facility]/telemetry tomorrow a.m.. Sodium 149 today, continue IV fluid and monitor BMP. Swallow eval, PT OT eval. 2nd text for covid is negative 12/21: transfer to [facility], start on gentle hydration. mechanical soft diet 12/22: placed back on bipap, Na 163 - start on D5W, monitor bmp 12/23: spoke to sister, updated [id number], also discussed Pulmonary, will likely need LTAC. Obtain Nephrology due to persistent Hypernatremia. Will start on free water and continue to monitor. Remains of restriants for safety due to intermittent confusion. 12/24: Still with intermittent encephalopathy. Requiring restraints. Hypernatremia still persist continue hypotonic solution. Nephrology consulted. Free water started this morning will increase dose. Replace potassium as hypokalemia still persist 12/26/19: Clinically improving, BIPAP now PRN AND HS, Na improving, continue renal follow up. I have called [facility] in case they would like to transfer the patient tested previously requested. 12/26: Hypernatermia still persist, had pulled out NGT yesterday, Continue free water, Continue Bipap, Rodanthe states he is not yet stable for transfer. Although from our critical care team this patient has been cleared for to be able to transfer. 12/27: Patient reintubated due to hypoxia. Continue current management as outlined by crew foreman. Sodium is improving. Continue current management monitor ABG and intermittent chest x-ray. [facility] updated. Patient sister also updated. 12/28: Sepsis persist. Antibiotics adjusted.-start linezolid 600 mg IV q 12 hour. Will adjust insulin for better management of blood glucose. 12/29: Shock still persist Levophed adjusted upward. Rodanthe advised patient not safe for travel at this time. Continue ventilatory support continue full support antibiotics adjusted by ID. Follow cultures 12/30: Still on the vent and pressors , Isolation secondary MRSA In sputum. 12/31: Continue current management, will need intermittent chest xray, adjust insulin For better blood glucose control. Check labs in am 01/01: KUB reviewed shows distended bowel with no no specific obstruction noted. We will hold tube feeds at this time place NG tube to low intermittent suction. Repeat chest x-ray in a.m. Hyponatremia is better kidney function appears to be improving continue to monitor. 01/02: Continue feeding tube to low intermittent suction over 500 residual came out in the last 16+ hours. Repeat blood culture per ID. Continue antibiotics. We will obtain the CT abdomen and pelvis without contrast as renal function is mildly increased today. Prognosis is guarded repeat imaging concerning for colon distention. Will defer to critical care if the fecal management system should be placed. 01/03: CT A/P and chest. IMPRESSION: 1. Predominantly dependent bilateral consolidative and groundglass changes throughout both lungs have worsened since the prior. There is a new small left pleural effusion as well. These findings could be seen in the setting of pulmonary edema with associated superimposed infectious process. There is no cardiomegaly. 2. Left cervical/supraclavicular adenopathy appears slightly increased. This is nonspecific. However, there are shoddy nodes throughout the retroperitoneum and within the pelvis, and the spleen is mildly enlarged. Taken together, these findings are concerning for lymphoproliferative process such as lymphoma. - Will discuss with surgery about possible Biopsy, also send peripheral smear. US guided biopsy ordered - add a second pressors - The high probability of a clinically significant, sudden or life threatening deterioration of the [renal, pulmonary] system(s) required my full and direct attention, intervention and personal management. The aggregate critical care time was [35] minutes. This time is in addition to time spent performing reported procedures but includes the following: [x] Data Review and interpretation [x] Patient assessment and monitoring of vital signs [x] Documentation [x] Medication orders and management History Interval history: Patient seen and examined, still on full ventilatory support, no clinical change at this time. Remains on pressors and with persistent hypotensive Hospitalist Physical - Physical exam Narrative exam: GENERAL: well-developed obese white male lying on bed on restraints due to confusion and pulling. ETT HEENT: Normocephalic. Atraumatic. No conjunctival congestion or icterus. Patient has moist mucous membranes. ETT NECK: Supple. Trachea midline. CHEST/LUNGS: Coarse breath sound auscultated bilaterally, HEART/CARDIOVASCULAR: Regular in rate and rhythm. S1 and S2 positive. ABDOMEN: Abdomen is soft, distended nontender. Patient has normal bowel sounds. SKIN: There is no rash. Warm and dry. NEURO: follows some command, AMS, no focal deficits MUSCULOSKELETAL: No joint effusion or tenderness. EXTRIMITY: No edema, no cyanosis or clubbing. PSYCH: Sedated - Constitutional Vitals: Temp Pulse Resp BP Pulse Ox 99.6 F 79 24 102/52 95 01/04/20 03:47 01/04/20 07:30 01/04/20 07:30 01/04/20 07:30 01/04/20 07:30 General appearance: Present: severe distress HEART Score - HEART Score Troponin: Troponin T 0.011 ng/mL (0.00-0.029) 12/18/19 14:45 Results - Labs CBC & Chem 7: 01/04/20 Unknown 01/04/20 Unknown Labs: Laboratory Last Values WBC 7.9 K/mm3 (4.5-11.0) 01/03/20 05:40 RBC 3.45 M/mm3 (3.65-5.03) L 01/03/20 05:40 Hgb 8.3 gm/dl (11.8-15.2) L 01/03/20 05:40 Hct 27.3 % (35.5-45.6) L 01/03/20 05:40 MCV 79 fl (84-94) L 01/03/20 05:40 MCH 24 pg (28-32) L 01/03/20 05:40 MCHC 30 % (32-34) L 01/03/20 05:40 RDW 19.3 % (13.2-15.2) H 01/03/20 05:40 Plt Count 318 K/mm3 (140-440) 01/03/20 05:40 Lymph % (Auto) 19.9 % (13.4-35.0) 01/02/20 05:00 [place] % (Auto) 9.4 % (0.0-7.3) H 01/02/20 05:00 Eos % (Auto) 11.2 % (0.0-4.3) H 01/02/20 05:00 Baso % (Auto) 0.8 % (0.0-1.8) 01/02/20 05:00 Lymph # 1.4 K/mm3 (1.2-5.4) 01/02/20 05:00 [place] # 0.7 K/mm3 (0.0-0.8) 01/02/20 05:00 Eos # 0.8 K/mm3 (0.0-0.4) H 01/02/20 05:00 Baso # 0.1 K/mm3 (0.0-0.1) 01/02/20 05:00 Add Manual Diff Complete 12/24/19 04:53 Total Counted 100 12/24/19 04:53 Seg Neutrophils % 58.7 % (40.0-70.0) 01/02/20 05:00 Seg Neuts % (Manual) 60.0 % (40.0-70.0) 12/24/19 04:53 Band Neutrophils % 0 % 12/24/19 04:53 Lymphocytes % (Manual) 20.0 % (13.4-35.0) 12/24/19 04:53 Reactive Lymphs % (Man) 0 % 12/24/19 04:53 Monocytes % (Manual) 15.0 % (0.0-7.3) H 12/24/19 04:53 Eosinophils % (Manual) 4.0 % (0.0-4.3) 12/24/19 04:53 Basophils % (Manual) 0 % (0.0-1.8) 12/24/19 04:53 Metamyelocytes % 1.0 % 12/24/19 04:53 Myelocytes % 0 % 12/24/19 04:53 Promyelocytes % 0 % 12/24/19 04:53 Blast Cells % 0 % 12/24/19 04:53 Nucleated RBC % Not Reportable 12/24/19 04:53 Seg Neutrophils # 4.0 K/mm3 (1.8-7.7) 01/02/20 05:00 Seg Neutrophils # Man 3.5 K/mm3 (1.8-7.7) 12/24/19 04:53 Band Neutrophils # 0.0 K/mm3 12/24/19 04:53 Lymphocytes # (Manual) 1.2 K/mm3 (1.2-5.4) 12/24/19 04:53 Abs React Lymphs (Man) 0.0 K/mm3 12/24/19 04:53 Monocytes # (Manual) 0.9 K/mm3 (0.0-0.8) H 12/24/19 04:53 Eosinophils # (Manual) 0.2 K/mm3 (0.0-0.4) 12/24/19 04:53 Basophils # (Manual) 0.0 K/mm3 (0.0-0.1) 12/24/19 04:53 Metamyelocytes # 0.1 K/mm3 12/24/19 04:53 Myelocytes # 0.0 K/mm3 12/24/19 04:53 Promyelocytes # 0.0 K/mm3 12/24/19 04:53 Blast Cells # 0.0 K/mm3 12/24/19 04:53 WBC Morphology Not Reportable 12/24/19 04:53 Hypersegmented Neuts Not Reportable 12/24/19 04:53 Hyposegmented Neuts Not Reportable 12/24/19 04:53 Hypogranular Neuts Not Reportable 12/24/19 04:53 Smudge Cells Not Reportable 12/24/19 04:53 Toxic Granulation Not Reportable 12/24/19 04:53 Toxic Vacuolation Not Reportable 12/24/19 04:53 Dohle Bodies Not Reportable 12/24/19 04:53 Pelger-Huet Anomaly Not Reportable 12/24/19 04:53 Mervin Rods Not Reportable 12/24/19 04:53 Platelet Estimate Consistent w auto 12/24/19 04:53 Clumped Platelets Not Reportable 12/24/19 04:53 Plt Clumps, EDTA Not Reportable 12/24/19 04:53 Large Platelets Not Reportable 12/24/19 04:53 Giant Platelets Not Reportable 12/24/19 04:53 Platelet Satelliting Not Reportable 12/24/19 04:53 Plt Morphology Comment Not Reportable 12/24/19 04:53 RBC Morphology Not Reportable 12/24/19 04:53 Dimorphic RBCs Not Reportable 12/24/19 04:53 Polychromasia Rare 12/24/19 04:53 Hypochromasia 1+ 12/24/19 04:53 Poikilocytosis Not Reportable 12/24/19 04:53 Anisocytosis 1+ 12/24/19 04:53 Microcytosis Few 12/24/19 04:53 Macrocytosis Not Reportable 12/24/19 04:53 Spherocytes Not Reportable 12/24/19 04:53 Pappenheimer Bodies Not Reportable 12/24/19 04:53 Sickle Cells Not Reportable 12/24/19 04:53 Target Cells Not Reportable 12/24/19 04:53 Tear Drop Cells Not Reportable 12/24/19 04:53 Ovalocytes Few 12/24/19 04:53 Helmet Cells Not Reportable 12/24/19 04:53 [place] Bodies Not Reportable 12/24/19 04:53 [place] Rings Not Reportable 12/24/19 04:53 Ileana Cells Not Reportable 12/24/19 04:53 Bite Cells Not Reportable 12/24/19 04:53 Crenated Cell Not Reportable 12/24/19 04:53 Elliptocytes Not Reportable 12/24/19 04:53 Acanthocytes (Spur) Not Reportable 12/24/19 04:53 Rouleaux Not Reportable 12/24/19 04:53 Hemoglobin C Crystals Not Reportable 12/24/19 04:53 Schistocytes Not Reportable 12/24/19 04:53 Malaria parasites Not Reportable 12/24/19 04:53 Gianni Bodies Not Reportable 12/24/19 04:53 Hem Pathologist Commnt No 12/24/19 04:53 PT 14.0 Sec. (12.2-14.9) 12/18/19 14:45 INR 1.10 (0.87-1.13) 12/18/19 14:45 APTT 29.4 Sec. (24.2-36.6) 12/18/19 14:45 D-Dimer 534.45 ng/mlDDU (0-234) H 12/18/19 14:45 ABG pH 7.282 pH Units (7.350-7.450) L 01/04/20 03:16 ABG pCO2 43.3 mm Hg 01/04/20 03:16 ABG pO2 73.2 mm Hg (80.0-90.0) L 01/04/20 03:16 ABG HCO3 20.0 mmol/L (20.0-26.0) 01/04/20 03:16 ABG O2 Saturation 94.5 % (95.0-99.0) L 01/04/20 03:16 ABG O2 Content 14.2 (0.0-44) 01/04/20 03:16 ABG Base Excess -6.4 mmol/L (-2.0-3.0) L 01/04/20 03:16 ABG Hemoglobin 10.9 gm/dl (14.0-18.0) L 01/04/20 03:16 ABG Carboxyhemoglobin 1.9 % (0.0-5.0) 01/04/20 03:16 ABG Methemoglobin 0.7 % (0.0-1.5) 01/04/20 03:16 Oxyhemoglobin 92.1 % (95.0-99.0) L 01/04/20 03:16 FiO2 50 % 01/04/20 03:16 Sodium 151 mmol/L (137-145) H 01/03/20 05:40 Potassium 3.8 mmol/L (3.6-5.0) 01/03/20 05:40 Chloride 111.8 mmol/L (98-107) H 01/03/20 05:40 Carbon Dioxide 31 mmol/L (22-30) H 01/03/20 05:40 Anion Gap 12 mmol/L 01/03/20 05:40 BUN 37 mg/dL (9-20) H 01/03/20 05:40 Creatinine 1.8 mg/dL (0.8-1.5) H 01/03/20 05:40 Estimated GFR 47 ml/min 01/03/20 05:40 BUN/Creatinine Ratio 21 % 01/03/20 05:40 Glucose 187 mg/dL (75-100) H 01/03/20 05:40 POC Glucose 139 (70-105) H 01/04/20 05:15 Lactic Acid 1.70 mmol/L (0.7-2.0) 12/30/19 05:06 Calcium 9.7 mg/dL (8.4-10.2) 01/03/20 05:40 Phosphorus 3.70 mg/dL (2.5-4.5) 12/27/19 03:48 Magnesium 2.60 mg/dL (1.7-2.3) H 12/30/19 05:06 Ferritin 83.4 ng/mL (13.0-400.0) 12/18/19 14:45 Total Bilirubin 0.30 mg/dL (0.1-1.2) 12/19/19 04:13 AST 85 units/L (5-40) H 12/19/19 04:13 ALT 61 units/L (7-56) H 12/19/19 04:13 Alkaline Phosphatase 80 units/L (35-129) 12/19/19 04:13 Ammonia 39.0 umol/L (25-60) 12/18/19 14:45 Lactate Dehydrogenase 235 units/L (91-180) H 12/18/19 14:45 Lactate Dehydrogenase 236 units/L (91-180) H 12/18/19 14:45 Total Creatine Kinase 40 units/L (55-170) L 12/18/19 14:45 Troponin T 0.011 ng/mL (0.00-0.029) 12/18/19 14:45 C-Reactive Protein 8.40 mg/dL (0.00-1.30) H 12/18/19 14:45 C-Reactive Protein 8.50 mg/dL (0.00-1.30) H 12/18/19 14:45 Total Protein 6.8 g/dL (6.3-8.2) 12/19/19 04:13 Albumin 3.0 g/dL (3.9-5) L 12/19/19 04:13 Albumin/Globulin Ratio 0.8 % 12/19/19 04:13 Procalcitonin 0.22 ng/mL (<0.15) 12/18/19 14:45 TSH 2.300 mlU/mL (0.270-4.200) 12/18/19 14:45 Urine Color Yellow (Yellow) 12/19/19 16:50 Urine Turbidity Clear (Clear) 12/19/19 16:50 Urine pH 5.0 (5.0-7.0) 12/19/19 16:50 Ur Specific [place] 1.010 (1.003-1.030) 12/19/19 16:50 Urine Protein <15 mg/dl mg/dL (Negative) 12/19/19 16:50 Urine Glucose (UA) 150 mg/dL (Negative) 12/19/19 16:50 Urine Ketones Neg mg/dL (Negative) 12/19/19 16:50 Urine Blood Neg (Negative) 12/19/19 16:50 Urine Nitrite Neg (Negative) 12/19/19 16:50 Urine Bilirubin Neg (Negative) 12/19/19 16:50 Urine Urobilinogen < 2.0 mg/dL (<2.0) 12/19/19 16:50 Ur Leukocyte Esterase Tr (Negative) 12/19/19 16:50 Urine WBC (Auto) 7.0 /HPF (0.0-6.0) H 12/19/19 16:50 Urine RBC (Auto) 4.0 /HPF (0.0-6.0) 12/19/19 16:50 U Epithel Cells (Auto) 1.0 /HPF (0-13.0) 12/19/19 16:50 Urine Bacteria (Auto) 1+ /HPF (Negative) 12/19/19 16:50 Urine Mucus Few /HPF 12/19/19 16:50 Urine Osmolality 140 Mosm/kg 12/25/19 16:45 Urine Creatinine < 4.2 mg/dL (0.1-20.0) 12/25/19 16:45 Urine Sodium 10 mmol/L 12/25/19 16:45 Urine Total Protein < 4 mg/dL (5-11.8) L 12/25/19 16:45 Digoxin 0.3 ng/mL (0.9-2.0) L 12/18/19 14:45 Salicylates < 0.3 mg/dL (2.8-20.0) L 12/18/19 14:45 Acetaminophen < 5.0 ug/mL (10.0-30.0) L 12/18/19 14:45 Plasma/Serum Alcohol < 0.01 % (0-0.07) 12/18/19 14:45 Coronavirus (PCR) Negative (Negative) 12/21/19 14:45 Blood Type A POSITIVE 12/18/19 14:45 Antibody Screen Negative 12/18/19 14:45 Microbiology: Microbiology 12/29/19 15:41 Peripheral/Venous Blood Culture - Final NO GROWTH AFTER 5 DAYS 12/29/19 15:44 Peripheral/Venous Blood Culture - Final NO GROWTH AFTER 5 DAYS 12/29/19 13:03 Peripheral/Venous Blood Culture - Final NO GROWTH AFTER 5 DAYS 12/29/19 13:42 Peripheral/Venous Blood Culture - Final NO GROWTH AFTER 5 DAYS - Diagnostic Impressions Diagnostic Impressions: Echocardiogram 12/28/19 14:07 Transthoracic Echocardiogram Indication: SOB BP: 95/51 HR: 99 Conclusions *The left ventricular chamber size is mildly dilated. *There is no left ventricular hypertrophy. *Global left ventricular systolic function is mildly decreased. *The estimated ejection fraction is 45-50%. *Abnormal left ventricular diastolic filling is observed, consistent with impaired relaxation. *The right ventricular global systolic function is mildly reduced. *The right ventricular systolic pressure is calculated at 53 mmHg. Findings Left Ventricle: The left ventricular chamber size is mildly dilated. There is no left ventricular hypertrophy. Global left ventricular systolic function is mildly decreased. The estimated ejection fraction is 45-50%. Abnormal left ventricular diastolic filling is observed, consistent with impaired relaxation. Left Atrium: The left atrial chamber size is normal. Right Ventricle: The right ventricular cavity size is normal. The right ventricular global systolic function is mildly reduced. Right Atrium: The right atrial cavity size is normal. Aortic Valve: The aortic valve leaflets are mildly thickened. There is no evidence of aortic regurgitation. Mitral Valve: The mitral valve leaflets are mildly thickened. There is no evidence of mitral regurgitation. Tricuspid Valve: The tricuspid valve leaflets are normal. There is mild tricuspid regurgitation. The right ventricular systolic pressure is calculated at 53 mmHg. Pulmonic Valve: The pulmonic valve appears normal. There is trace pulmonic regurgitation. Pericardium: There is no pericardial effusion. Aorta: The aorta appears normal. Venous: The inferior vena cava is dilated. Measurements Chambers 2D Name Value Normal Range IVSd (2D) 1.08 cm (0.6 - 1.1) LVPWd (2D) 1 cm (0.6 - 1.1) LVIDd (2D) 4.67 cm (3.7 - 5.6) LVIDs (2D) 3.89 cm (2 - 3.8) LV FS (2D) 16.76 % - EF Teichholz (2D) 35.14 % - Ao root diameter (2D) 2.86 cm (2 - 3.7) Volumes/Mass Name Value Normal Range LA ESV SP 4CH (A/L) 31.8 ml - LA ESV SP 2CH (A/L) 27.37 ml - LA ESV BP (A/L) 33.43 ml - LA ESV BP (A/L) index 14.11 ml/m2 - LA ESV SP 4CH (MOD) 26.83 ml - LA ESV SP 2CH (MOD) 29.59 ml - LA ESV BP (MOD) 30.47 ml - LA ESV BP (MOD) index 12.86 ml/m2 - Diastolic/Systolic Function Name Value Normal Range MV E-wave Vmax 0.39 m/sec - MV deceleration time 115.69 msec - MV A-wave Vmax 0.63 m/sec - MV E:A ratio 0.62 ratio - Aortic Valve Name Value Normal Range AV Vmax 1.14 m/sec - AV VTI 20.1 cm - AV peak gradient 5.17 mmHg - AV mean gradient 3.89 mmHg - LVOT diameter 2.02 cm - LVOT Vmax 0.99 m/sec - LVOT VTI 16.45 cm - LVOT peak gradient 3.95 mmHg - LVOT mean gradient 2.45 mmHg - SV LVOT 52.45 ml - RALPH (continuity Vmax) 2.78 cm2 - RALPH (continuity VTI) 2.61 cm2 - Tricuspid Valve Name Value Normal Range TR Vmax 3.36 m/sec - TR peak gradient 45 mmHg - RAP 8 mmHg - RVSP 53 mmHg - IVC diameter 2.33 cm (1.2 - 2.3) Pulmonic Valve/Qp:Qs Name Value Normal Range PV Vmax 0.89 m/sec - PV peak gradient 3.16 mmHg - TN end-diastolic Vmax 1.42 m/sec - PV acceleration time 79.92 msec - Sykes/IV: Voiding Method Condom Catheter IV Catheter Type [Right Upper PICC Line arm] IV Catheter Type [Right Leg] Intra-osseous IV Catheter Type [Right Wrist] Peripheral IV IV Catheter Type [Right Hand] INT / Saline Lock IV Catheter Type [Left Hand] INT / Saline Lock IV Catheter Type [Left Forearm INT / Saline Lock ] IV Catheter Type [Left Triple Lumen Cath Internal Jugular] Active Medications - Current Medications Current Medications: Generic Name Dose Route Start Last Admin Trade Name Freq PRN Reason Stop Dose Admin Acetaminophen 650 mg 12/29/19 09:21 01/03/20 18:31 Tylenol PO 650 mg Q4H PRN Administration Non Cardiac Pain or Temp>100.5 Albuterol/Ipratropium 1 ampul 12/18/19 14:00 01/03/20 20:06 Duoneb *Not For Prn Use* IH 1 ampul TIDRT SHANEL Administration Lipase/Protease/Amylase 1 each 12/19/19 08:[address] 10,500 Unit FEEDTUBE PRN PRN For Clogged Feeding Tube Aspirin 81 mg 12/19/19 10:00 01/03/20 10:59 Baby Aspirin PO 81 mg DAILY SHANEL Administration Bisacodyl 10 mg 01/02/20 15:48 01/02/20 18:25 Dulcolax TN 10 mg QDAY PRN Administration Constipation Docusate Sodium 100 mg 01/01/20 22:00 01/03/20 22:37 Colace PO 100 mg BID SHANEL Administration Famotidine 20 mg 12/20/19 10:00 01/03/20 22:36 Pepcid PO 20 mg BID SHANEL Administration Fentanyl 50 mcg 12/27/19 16:57 Sublimaze IV Q10MIN PRN ANALGESIA Folic Acid 1 mg 12/19/19 10:00 01/03/20 10:59 Folvite PO 1 mg DAILY SHANEL Administration Heparin Sodium (Porcine) 5,000 unit 12/18/19 22:00 01/03/20 22:37 Heparin SUB-Q 5,000 unit Q12HR SHANEL Administration Hydrophilic Ointment 1 applic 12/18/19 12:35 Vaseline Lip Therapy TP Q2HR PRN Dry Lips Fentanyl Citrate 2,000 mcg in 100 mls @ 5.85 mls/hr 12/27/19 17:00 01/04/20 02:57 Fentanyl Drip Premix IV 1 mcg/kg/hr TITR SHANEL 5.85 mls/hr Administration Protocol 1 MCG/KG/HR Norepinephrine 4 mg in 250 mls @ 7.5 mls/hr 12/28/19 15:00 12/31/19 18:12 Levophed Drip 4 Mg/Ns 250 Ml IV 0 mcg/min TITR SHANEL 0 mls/hr Titration Protocol 2 MCG/MIN Linezolid 600 mg in 300 mls @ 300 mls/hr 12/29/19 15:00 01/03/20 22:38 Zyvox 600mg/300ml IV 01/07/20 22:59 300 mls/hr Q12HR SHANEL Administration Protocol Vasopressin 20 unit/ Sodium 101 mls @ 9.09 mls/hr 12/30/19 12:30 01/01/20 13:44 Chloride IV 0 units/min TITR SHANEL 0 mls/hr Titration Protocol 0.03 UNITS/MIN Dopamine HCl/Dextrose 800 mg in 250 mls @ 4.388 mls/hr 12/31/19 16:00 01/04/20 02:55 Intropin Drip 800 Mg/D5w 250 Ml IV 16 mcg/kg/min TITR SHANEL 35.1 mls/hr Administration Protocol 2 MCG/KG/MIN Dextrose/Sodium Chloride 1,000 mls @ 75 mls/hr 01/03/20 10:00 01/03/20 13:15 D5ns 0.2% IV 75 mls/hr DIRECT SHANEL Administration Insulin Glargine 35 units 01/01/20 22:00 01/03/20 22:37 Lantus SUB-Q 35 units QHS SHANEL Administration Insulin Glargine 35 units 01/01/20 11:00 01/03/20 08:50 Lantus SUB-Q Not Given QAMDIAB SHANEL Insulin Human Lispro 0 unit 12/31/19 14:00 01/04/20 06:03 Humalog SUB-Q Not Given Q4HR [facility] Protocol Levothyroxine Sodium 88 mcg 12/19/19 06:00 01/04/20 05:45 Synthroid PO 88 mcg QAM@0600 [facility] Administration Multi-Ingred Cream/Lotion/Oil/Oint 1 applic 12/18/19 12:35 Artificial Tears Ophth Oint OU Q4HR PRN Dry Eye(s) Polyethylene Glycol 17 gm 01/01/20 22:00 01/03/20 22:37 Miralax 3350 PO 17 gm QHS SHANEL Administration Potassium Chloride 40 meq 12/29/19 10:00 01/03/20 11:00 Potassium Chloride FEEDTUBE 40 meq QDAY [facility] Administration Simethicone 160 mg 01/01/20 18:00 01/04/20 05:45 Mylicon PO 01/04/20 17:59 160 mg Q6H SHANEL Administration Simple Syrup 15 ml 12/19/19 08:29 Simple Syrup FEEDTUBE PRN PRN Hypoglycemia Simple Syrup 30 ml 12/19/19 08:29 Simple Syrup FEEDTUBE PRN PRN Hypoglycemia Sodium Bicarbonate 325 mg 12/19/19 08:29 Sodium Bicarbonate FEEDTUBE PRN PRN For Clogged Feeding Tube Sodium Chloride 10 ml 12/18/19 22:00 01/03/20 22:38 Sodium Chloride Flush Syringe 10 Ml IV 10 ml BID SHANEL Administration Sodium Chloride 10 ml 12/18/19 13:31 Sodium Chloride Flush Syringe 10 Ml IV PRN PRN LINE FLUSH Nutrition/Malnutrition Assess - Dietary Evaluation Nutrition/Malnutrition Findings: Nutrition Notes Start: 12/19/19 08:16 Freq: Status: Active Protocol: Document 12/30/19 12:15 LM (Rec: 12/30/19 12:19 LM [email or web address]) Nutrition Notes Initial or Follow up Reassessment Current Diagnosis Diabetes,Sepsis,Hypertension, Heart Failure,Respiratory Failure Other Pertinent Diagnosis Suspected COVID-19, pneu Current Diet Vital AF 1.2 at 65ml/hr Labs/Tests Na 159 K 3.2 Cr 1.9 POC glu 399 Pertinent Medications Levophed Humalog Height 6 ft 2 in Weight 117 kg [place] Body Weight (kg) 86.36 BMI 33.1 Subjective/Other Information Pt tolerating TF. Percent of energy/protein needs met: 94%/68% Burn Absent Trauma Absent Current % PO Negligible Minimum of two criteria No physical signs of malnutrition #1 Nutrition Diagnosis Inadequate oral intake Diagnosis Progress(for reassessment Continues documentation) Is patient on ventilator? Yes Is Patient Ambulatory and/or Out of Bed No REE-([place]-confined to bed) 2469.960 Kcal/Kg value to use for calculation 17 Approximate Energy Requirements Using 1989 kcal/Kg Calculation Used for Recommendations Kcal/kg Additional Notes Protein: 172g (>/=2g/kg using IBW 86kg) Fluid 1ml/kcal Nutrition Intervention Change Diet Order: TF Nutrition Support: Vital AF 1.2 at 65ml/hr Flush 300ml q4h for hypernatremia Flush 100ml q4h once resolved Kcal 1,872 Protein (gm) 117 Fluid (mL) 1,265 Goal #1 TF tolerance Goal #2 Meet at least 75% of energy and protein needs Anticipated Discharge Needs: unable to determine at this time Follow-Up By: 01/04/20 Additional Comments F/U for TF tolerance
[2020-01-04] MEDS: INSULIN GLARGINE 100 UNITS/ML SUB-Q SCH ×2 (08:06→22:05)
[2020-01-04] MEDS: D5W/0.2% NACL 1,000 ML IV SCH ×2 (08:08→22:36)
[2020-01-04] MEDS: IPRATROPIUM/ALBUTEROL SULFATE 3 ML AMPUL.NEB IH SCH ×3 (08:46→20:54)
--- NOTE | 2020-01-04 08:54 | Progress Note ---
Assessment and Plan - Patient Problems (1) Acute kidney injury Current Visit: Yes Status: Acute Plan to address problem: Concerned for worsening pre-renal injury in setting of sepsis and hemodynamic instability and now with increasing pressor requirements. pt remains non- oliguric. Avoid nephrotoxins, maintain MAP >65 mmHg. Will monitor lytes/renal pa rameters closely and make further recommendations (2) Acute respiratory failure Current Visit: Yes Status: Acute Qualifiers: Plan to address problem: Management on vent per Pulmonary/ICU. (3) Hypernatremia Current Visit: Yes Status: Acute Plan to address problem: cont free water flushes 300cc q 4hr. strict I/Os (4) Pneumonia Current Visit: No Status: Acute Qualifiers: Pneumonia type: due to unspecified organism Laterality: left Lung location: unspecified part of lung Qualified Code(s): J18.9 - Pneumonia, unspecified organism Plan to address problem: Management per primary/ICU team. (5) Diastolic CHF Current Visit: Yes Status: Acute Qualifiers: Heart failure chronicity: acute on chronic Qualified Code(s): I50.33 - Acute on chronic diastolic (congestive) heart failure Plan to address problem: Chest Xray is concerning for volume overload. IVF has been stopped at this time. (6) Obesity hypoventilation syndrome Current Visit: Yes Status: Acute Subjective Date of service: 01/04/20 Principal diagnosis: Ac. Hypoxemic Resp Failure; Septic Shock; Magdiel. PNA; PUI COVID-19; CHF; JOE Interval history: Pt remains on vent, on vasopressor support with dopamin Objective - Vital Signs Vital signs: Vital Signs - 12hr 01/03/20 01/03/20 01/03/20 21:00 22:12 22:30 Temperature Pulse Rate 83 95 H 78 Pulse Rate [ From Monitor] Respiratory 24 25 H 26 H Rate Blood Pressure 107/54 107/54 97/54 O2 Sat by Pulse 93 89 96 Oximetry 01/03/20 01/03/20 01/03/20 23:00 23:30 23:55 Temperature Pulse Rate 70 62 71 Pulse Rate [ From Monitor] Respiratory 26 H 26 H Rate Blood Pressure 100/58 113/62 134/66 O2 Sat by Pulse 97 100 93 Oximetry 01/04/20 01/04/20 01/04/20 00:00 00:30 01:00 Temperature 99.2 F Pulse Rate 82 82 74 Pulse Rate [ 96 H From Monitor] Respiratory 25 H 24 24 Rate Blood Pressure 115/64 127/65 120/60 O2 Sat by Pulse 96 93 93 Oximetry 01/04/20 01/04/20 01/04/20 01:30 02:00 02:30 Temperature Pulse Rate 107 H 102 H 107 H Pulse Rate [ From Monitor] Respiratory 19 23 14 Rate Blood Pressure 106/64 129/64 131/67 O2 Sat by Pulse 93 88 94 Oximetry 01/04/20 01/04/20 01/04/20 03:00 03:30 03:47 Temperature 99.6 F Pulse Rate 87 84 Pulse Rate [ From Monitor] Respiratory 24 24 Rate Blood Pressure 126/68 113/61 O2 Sat by Pulse 92 93 Oximetry 01/04/20 01/04/20 01/04/20 04:00 04:21 04:30 Temperature Pulse Rate 102 H 87 83 Pulse Rate [ 96 H From Monitor] Respiratory 12 24 Rate Blood Pressure 134/78 126/68 113/61 O2 Sat by Pulse 90 92 94 Oximetry 01/04/20 01/04/20 01/04/20 05:00 05:30 06:00 Temperature Pulse Rate 90 89 83 Pulse Rate [ From Monitor] Respiratory 17 21 24 Rate Blood Pressure 114/63 94/51 90/54 O2 Sat by Pulse 94 94 96 Oximetry 01/04/20 01/04/20 01/04/20 06:30 07:00 07:30 Temperature Pulse Rate 87 78 79 Pulse Rate [ From Monitor] Respiratory 24 24 24 Rate Blood Pressure 98/49 116/57 102/52 O2 Sat by Pulse 95 96 95 Oximetry 01/04/20 01/04/20 01/04/20 08:00 08:30 08:42 Temperature 98.2 F Pulse Rate 80 84 83 Pulse Rate [ 87 From Monitor] Respiratory 25 H 23 Rate Blood Pressure 119/59 95/59 95/59 O2 Sat by Pulse 94 96 95 Oximetry - General Appearance General appearance: chronically ill, sedated on ventilator, intubated EENT: ATNC, mucous membranes moist Neck: no JVD Respiratory: Present: Decreased Breath Sounds Cardiology: regular, S1S2 Gastrointestinal: normoactive bowel sounds Integumentary: no rash Neurologic: other (intubated ) - Lab 01/03/20 05:40 01/03/20 05:40 Most recent lab results ABG pH 7.282 pH Units (7.350-7.450) L 01/04/20 03:16 ABG pCO2 43.3 mm Hg 01/04/20 03:16 ABG pO2 73.2 mm Hg (80.0-90.0) L 01/04/20 03:16 ABG HCO3 20.0 mmol/L (20.0-26.0) 01/04/20 03:16 ABG O2 Saturation 94.5 % (95.0-99.0) L 01/04/20 03:16 Calcium 9.7 mg/dL (8.4-10.2) 01/03/20 05:40 Phosphorus 3.70 mg/dL (2.5-4.5) 12/27/19 03:48 Magnesium 2.60 mg/dL (1.7-2.3) H 12/30/19 05:06 Urine Creatinine < 4.2 mg/dL (0.1-20.0) 12/25/19 16:45 Urine Sodium 10 mmol/L 12/25/19 16:45 Urine Total Protein < 4 mg/dL (5-11.8) L 12/25/19 16:45 Medications & Allergies - Medications Allergies/Adverse Reactions: Allergies No Known Allergies Allergy (Unverified 12/19/19 01:31) Home Medications: Home Medications Medication Instructions Recorded Confirmed Last Taken Type Ipratropium/Albuterol Sulfate 1 ampul TIDRT #90 ampul.neb 06/02/19 12/28/19 Unknown Rx [DUONEB *Not for PRN Use*] Aspirin [Aspirin BABY CHEW TAB] 81 mg PO DAILY 06/03/19 12/28/19 3 Days Ago History ~05/31/19 Desmopressin [Ddavp] 0.2 mg PO BID 06/03/19 12/28/19 3 Days Ago History ~05/31/19 Digoxin [Lanoxin] 0.125 mg PO DAILY 06/03/19 12/28/19 3 Days Ago History ~05/31/19 Folic Acid 100 mg PO DAILY 06/03/19 12/28/19 3 Days Ago History ~05/31/19 Furosemide [Lasix TAB] 40 mg PO QDAY 06/03/19 12/28/19 3 Days Ago History ~05/31/19 Insulin Lispro [Humalog 100 4 units SQ AC 06/03/19 12/28/19 3 Days Ago History UNITS/ML Kwikpen] ~05/31/19 Levothyroxine [Synthroid] 88 mcg PO QAM 06/03/19 12/28/19 3 Days Ago History ~05/31/19 Metformin HCl [metFORMIN] 1,000 mg PO BID 06/03/19 12/28/19 3 Days Ago History ~05/31/19 Potassium Chloride [K-Dur] 20 meq PO QDAY 06/03/19 12/28/19 3 Days Ago History ~05/31/19 carvediloL [Coreg] 6.25 mg PO BID 06/03/19 12/28/19 3 Days Ago History ~05/31/19 Famotidine [Pepcid] 20 mg PO QDAY #30 tablet 06/06/19 12/28/19 Unknown Rx Insulin NPH/Regular [NovoLIN 70/30] 50 unit SUB-Q BIDDIAB #100 units 06/06/19 12/28/19 Unknown Rx Active Medications: Generic Name Dose Route Start Last Admin Trade Name Freq PRN Reason Stop Dose Admin Acetaminophen 650 mg 12/29/19 09:21 01/03/20 18:31 Tylenol PO 650 mg Q4H PRN Administration Non Cardiac Pain or Temp>100.5 Albuterol/Ipratropium 1 ampul 12/18/19 14:00 01/04/20 08:46 Duoneb *Not For Prn Use* IH 1 ampul TIDRT SHANEL Administration Lipase/Protease/Amylase 1 each 12/19/19 08:29 Pancrecorry Cabrera 10,500 Unit FEEDTUBE PRN PRN For Clogged Feeding Tube Aspirin 81 mg 12/19/19 10:00 01/03/20 10:59 Baby Aspirin PO 81 mg DAILY SHANEL Administration Bisacodyl 10 mg 01/02/20 15:48 01/02/20 18:25 Dulcolax MT 10 mg QDAY PRN Administration Constipation Docusate Sodium 100 mg 01/01/20 22:00 01/03/20 22:37 Colace PO 100 mg BID SHANEL Administration Famotidine 20 mg 12/20/19 10:00 01/03/20 22:36 Pepcid PO 20 mg BID SHANEL Administration Fentanyl 50 mcg 12/27/19 16:57 Sublimaze IV Q10MIN PRN ANALGESIA Folic Acid 1 mg 12/19/19 10:00 01/03/20 10:59 Folvite PO 1 mg DAILY SHANEL Administration Heparin Sodium (Porcine) 5,000 unit 12/18/19 22:00 01/03/20 22:37 Heparin SUB-Q 5,000 unit Q12HR SHANEL Administration Hydrophilic Ointment 1 applic 12/18/19 12:35 Vaseline Lip Therapy TP Q2HR PRN Dry Lips Fentanyl Citrate 2,000 mcg in 100 mls @ 5.85 mls/hr 12/27/19 17:00 01/04/20 02:57 Fentanyl Drip Premix IV 1 mcg/kg/hr TITR SHANEL 5.85 mls/hr Administration Protocol 1 MCG/KG/HR Norepinephrine 4 mg in 250 mls @ 7.5 mls/hr 12/28/19 15:00 12/31/19 18:12 Levophed Drip 4 Mg/Ns 250 Ml IV 0 mcg/min TITR SHANEL 0 mls/hr Titration Protocol 2 MCG/MIN Linezolid 600 mg in 300 mls @ 300 mls/hr 12/29/19 15:00 01/03/20 22:38 Zyvox 600mg/300ml IV 01/07/20 22:59 300 mls/hr Q12HR SHANEL Administration Protocol Vasopressin 20 unit/ Sodium 101 mls @ 9.09 mls/hr 12/30/19 12:30 01/01/20 13:44 Chloride IV 0 units/min TITR SHANEL 0 mls/hr Titration Protocol 0.03 UNITS/MIN Dopamine HCl/Dextrose 800 mg in 250 mls @ 4.388 mls/hr 12/31/19 16:00 02:55 Intropin Drip 800 Mg/D5w 250 Ml IV 16 mcg/kg/min TITR SHANEL 35.1 mls/hr Administration Protocol 2 MCG/KG/MIN Dextrose/Sodium Chloride 1,000 mls @ 75 mls/hr 01/03/20 10:00 01/04/20 08:08 D5ns 0.2% IV 75 mls/hr DIRECT SHANEL Administration Insulin Glargine 35 units 01/01/20 22:00 01/03/20 22:37 Lantus SUB-Q 35 units QHS SHANEL Administration Insulin Glargine 35 units 01/01/20 11:00 01/04/20 08:06 Lantus SUB-Q 35 units QAMDIAB SHANEL Administration Insulin Human Lispro 0 unit 12/31/19 14:00 01/04/20 06:03 Humalog SUB-Q Not Given Q4HR [facility] Protocol Levothyroxine Sodium 88 mcg 12/19/19 06:00 01/04/20 05:45 Synthroid PO 88 mcg QAM@0600 SHANEL Administration Multi-Ingred Cream/Lotion/Oil/Oint 1 applic 12/18/19 12:35 Artificial Tears Ophth Oint OU Q4HR PRN Dry Eye(s) Polyethylene Glycol 17 gm 01/01/20 22:00 01/03/20 22:37 Miralax 3350 PO 17 gm QHS SHANEL Administration Potassium Chloride 40 meq 12/29/19 10:00 01/03/20 11:00 Potassium Chloride FEEDTUBE 40 meq QDAY SHANEL Administration Simethicone 160 mg 01/01/20 18:00 01/04/20 05:45 Mylicon PO 01/04/20 17:59 160 mg Q6H SHANEL Administration Simple Syrup 15 ml 12/19/19 08:29 Simple Syrup FEEDTUBE PRN PRN Hypoglycemia Simple Syrup 30 ml 12/19/19 08:29 Simple Syrup FEEDTUBE PRN PRN Hypoglycemia Sodium Bicarbonate 325 mg 12/19/19 08:29 Sodium Bicarbonate FEEDTUBE PRN PRN For Clogged Feeding Tube Sodium Chloride 10 ml 12/18/19 22:00 01/03/20 22:38 Sodium Chloride Flush Syringe 10 Ml IV 10 ml BID SHANEL Administration Sodium Chloride 10 ml 12/18/19 13:31 Sodium Chloride Flush Syringe 10 Ml IV PRN PRN LINE FLUSH
[2020-01-04] MEDS: POTASSIUM CHLORIDE 20 MEQ PACKET FEEDTUBE SCH (09:15)
[2020-01-04] MEDS: LINEZOLID 600 MG/300 ML BAG IV SCH ×2 (09:16→22:04)
[2020-01-04] MEDS: DOCUSATE SODIUM 100 MG/10 ML ORAL LIQD PO SCH ×2 (09:16→22:05)
[2020-01-04] MEDS: HEPARIN 5,000 UNIT/1 ML VIAL SUB-Q SCH ×2 (09:17→22:05)
[2020-01-04] MEDS: ASPIRIN 81 MG TAB CHEW PO SCH (09:17)
[2020-01-04] MEDS: FAMOTIDINE 20 MG TAB PO SCH ×2 (09:17→22:04)
[2020-01-04] MEDS: FOLIC ACID 1 MG TAB PO SCH (09:17)
[2020-01-04] MEDS: FLUCONAZOLE 200 MG 200 MG/100 ML BAG IV SCH (09:21)
[2020-01-04] MEDS: CEFEPIME/NS 2 GM/100 ML 2 GM/100 ML BAG IV SCH ×2 (09:21→22:11)
--- NOTE | 2020-01-04 10:11 | Progress Note ---
Assessment and Plan Acute Hypoxemic Respiratory Failure Severe Sepsis with Shock Bilateral Pneumonia JAGDEEP secondary to ATN, non oliguric Hypernatremia Morbid Obesity H/O CHF JOE - wean vasopressors for MAP > 65 mmHg -Continue D5 1/4Nsaline for hypernatremia, get BMP in am -Plan for bronchsocopy in am for definitive cultures, in the setting of worsening infiltrates on imaging with ongoing hypotension -Antibiotics (Cefepime, Linezolid); antifunga l( Fluconazole) per ID- de- escalate as indicated -Trophic feeding with bowel regime. Plan to advance feeding as tolerated -Avoid nephrotoxins and dose all medications for GFR and CrCL -Discussed with ID and primary Attending re care plan -Discussed with RT, RN, clinical pharmacist and RD during interdisciplinary rounds - Daily SAT and SBT assessment as tolerated - accuchecks with glycemic control per SSI (While critically ill target blood glucose of 140-180 mg/dL; avoid hypoglycemia) - sedation for target RASS 0 to -1 - continue to wean supplemental oxygen for target O2 sats> 92% - continue bronchodilators with pulmonary hygiene per RT - VAP bundle addressed - Lung protective strategies - wean per pulmonary driven protocols - continue to avoid benzodiazepines reduce the possibility of delirium - prn analgesia per CPOT score - Maintenance of sleep-wake cycle - G.I. & VTE prophylaxis( Heparin, Famotidine) - Mobility, off loading and frequent turning to prevent pressure ulcers - continue aspiration precautions, HOB >40 - continue accuchecks with glycemic control per SSI (While critically ill target blood glucose of 140-180 mg/dL; avoid hypoglycemia) - Monitor hemodynamics closely - continue other care per attending / other consultants - discharge planning ongoing concurrently .... Re-evaluate in am & prn CONDITION: CRITICAL PROGNOSIS: GUARDED CODE STATUS: FULL CODE The high probability of a clinically significant, sudden or life-threatening det erioration of the [respiratory, cardiovascular, GI & neurologic] system(s) required my full and direct attention, intervention and personal management. The aggregate critical care time was [32] minutes without overlap. Time includes spent on; [x] Data Review and interpretation [x] Patient assessment and monitoring of vital signs [x] Documentation [x] Medication orders and management Subjective Date of service: 01/04/20 Principal diagnosis: Ac. Hypoxemic Resp Failure; Septic Shock; Magdiel. PNA; PUI COVID-19; CHF; JOE Interval history: Patient is seen today for: Acute Hypoxemic Respiratory Failure; Severe Sepsis with Shock; Bilateral Pneumonia; PUI COVID-19; Morbid Obesity; H/O CHF; JOE Seen and examined at bedside; 24hour events reviewed; nursing and respiratory care staff consulted; no adverse overnight events reported to me; resting peacefully in bed; remains on MVS; FiO2 down to 45% with room to wean; AMS is persistent; no emesis or overt aspiration; sputum growing MRSA Remains vasopressor dependant on dopamine, no fevers, abdominal distention per sists but tolerating trophic feeding Had CT scan of chest, abdomen and pelvis yesterday, results reviewed Objective Vital Signs - 12hr 01/03/20 01/03/20 01/03/20 22:12 22:30 23:00 Temperature Pulse Rate 95 H 78 70 Pulse Rate [ Bilateral] Pulse Rate [ From Monitor] Respiratory 25 H 26 H 26 H Rate Respiratory Rate [Bilateral ] Blood Pressure 107/54 97/54 100/58 O2 Sat by Pulse 89 96 97 Oximetry 01/03/20 01/03/20 01/04/20 23:30 23:55 00:00 Temperature 99.2 F Pulse Rate 62 71 82 Pulse Rate [ Bilateral] Pulse Rate [ 96 H From Monitor] Respiratory 26 H 25 H Rate Respiratory Rate [Bilateral ] Blood Pressure 113/62 134/66 115/64 O2 Sat by Pulse 100 93 96 Oximetry 01/04/20 01/04/20 01/04/20 00:30 01:00 01:30 Temperature Pulse Rate 82 74 107 H Pulse Rate [ Bilateral] Pulse Rate [ From Monitor] Respiratory 24 24 19 Rate Respiratory Rate [Bilateral ] Blood Pressure 127/65 120/60 106/64 O2 Sat by Pulse 93 93 93 Oximetry 01/04/20 01/04/20 01/04/20 02:00 02:30 03:00 Temperature Pulse Rate 102 H 107 H 87 Pulse Rate [ Bilateral] Pulse Rate [ From Monitor] Respiratory 23 14 24 Rate Respiratory Rate [Bilateral ] Blood Pressure 129/64 131/67 126/68 O2 Sat by Pulse 88 94 92 Oximetry 01/04/20 01/04/20 01/04/20 03:30 03:47 04:00 Temperature 99.6 F Pulse Rate 84 102 H Pulse Rate [ Bilateral] Pulse Rate [ 96 H From Monitor] Respiratory 24 12 Rate Respiratory Rate [Bilateral ] Blood Pressure 113/61 134/78 O2 Sat by Pulse 93 90 Oximetry 01/04/20 01/04/20 01/04/20 04:21 04:30 05:00 Temperature Pulse Rate 87 83 90 Pulse Rate [ Bilateral] Pulse Rate [ From Monitor] Respiratory 24 17 Rate Respiratory Rate [Bilateral ] Blood Pressure 126/68 113/61 114/63 O2 Sat by Pulse 92 94 94 Oximetry 01/04/20 01/04/20 01/04/20 05:30 06:00 06:30 Temperature Pulse Rate 89 83 87 Pulse Rate [ Bilateral] Pulse Rate [ From Monitor] Respiratory 21 24 24 Rate Respiratory Rate [Bilateral ] Blood Pressure 94/51 90/54 98/49 O2 Sat by Pulse 94 96 95 Oximetry 01/04/20 01/04/20 01/04/20 07:00 07:30 08:00 Temperature 98.2 F Pulse Rate 78 79 80 Pulse Rate [ Bilateral] Pulse Rate [ 87 From Monitor] Respiratory 24 24 25 H Rate Respiratory Rate [Bilateral ] Blood Pressure 116/57 102/52 119/59 O2 Sat by Pulse 96 95 94 Oximetry 01/04/20 01/04/20 01/04/20 08:30 08:42 09:00 Temperature Pulse Rate 84 83 Pulse Rate [ 78 Bilateral] Pulse Rate [ From Monitor] Respiratory 23 Rate Respiratory 24 Rate [Bilateral ] Blood Pressure 95/59 95/59 O2 Sat by Pulse 96 95 Oximetry Constitutional: no acute distress, other (obese AAM with mildly increrased respiratory effort at rest on MVS,) Eyes: non-icteric ENT: oropharynx moist, other (ETT 24 cm KOLBY) Neck: supple, no lymphadenopathy, no JVD Effort: mildly labored Ascultation: Bilateral: diminished breath sounds, rhonchi Percussion: Bilateral: not dull Cardiovascular: regular rate and rhythm, other (S1,S2) Gastrointestinal: normoactive bowel sounds, soft, non-tender, other (protuberant, distendend , soft) Integumentary: rash (stasis dermatyitis) Extremities: no cyanosis, pink and warm, pulses normal, no ischemia or petechiae, edema (trace) Neurologic: pupils equal and round, unable to assess Psychiatric: other (unable to assess re: AMS) CBC and BMP: 01/03/20 05:40 01/03/20 05:40 ABG, PT/INR, D-dimer: ABG ABG pH 7.282 pH Units (7.350-7.450) L 01/04/20 03:16 ABG pCO2 43.3 mm Hg 01/04/20 03:16 ABG pO2 73.2 mm Hg (80.0-90.0) L 01/04/20 03:16 ABG O2 Saturation 94.5 % (95.0-99.0) L 01/04/20 03:16 PT/INR, D-dimer PT 14.0 Sec. (12.2-14.9) 12/18/19 14:45 INR 1.10 (0.87-1.13) 12/18/19 14:45 D-Dimer 534.45 ng/mlDDU (0-234) H 12/18/19 14:45 Abnormal lab findings: Abnormal Labs 12/18/19 12/18/19 12/18/19 12:23 14:45 14:45 WBC RBC Hgb 10.4 L Hct 35.2 L MCV MCH 25 L MCHC 30 L RDW 18.8 H Lymph % (Auto) [place] % (Auto) 11.6 H Eos % (Auto) 4.8 H Lymph # [place] # 1.0 H Eos # Seg Neutrophils % Monocytes % (Manual) Monocytes # (Manual) D-Dimer ABG pH ABG pO2 ABG HCO3 ABG O2 Saturation ABG Base Excess ABG Hemoglobin Oxyhemoglobin Sodium Potassium Chloride Carbon Dioxide BUN Creatinine Glucose POC Glucose 328 H Lactic Acid Calcium Magnesium AST ALT Lactate Dehydrogenase Total Creatine Kinase 40 L C-Reactive Protein Albumin Urine WBC (Auto) Urine Total Protein Digoxin Salicylates Acetaminophen 12/18/19 12/18/19 12/18/19 14:45 14:45 14:45 WBC RBC Hgb Hct MCV MCH MCHC RDW Lymph % (Auto) [place] % (Auto) Eos % (Auto) Lymph # [place] # Eos # Seg Neutrophils % Monocytes % (Manual) Monocytes # (Manual) D-Dimer 534.45 H ABG pH ABG pO2 ABG HCO3 ABG O2 Saturation ABG Base Excess ABG Hemoglobin Oxyhemoglobin Sodium 156 H Potassium Chloride 112.3 H Carbon Dioxide 31 H BUN 32 H Creatinine Glucose 328 H POC Glucose Lactic Acid Calcium Magnesium AST ALT Lactate Dehydrogenase 235 H Total Creatine Kinase C-Reactive Protein 8.50 H Albumin 3.6 L Urine WBC (Auto) Urine Total Protein Digoxin 0.3 L Salicylates < 0.3 L Acetaminophen 12/18/19 12/18/19 12/18/19 14:45 14:45 16:00 WBC RBC Hgb Hct MCV MCH MCHC RDW Lymph % (Auto) [place] % (Auto) Eos % (Auto) Lymph # [place] # Eos # Seg Neutrophils % Monocytes % (Manual) Monocytes # (Manual) D-Dimer ABG pH ABG pO2 69.8 L ABG HCO3 31.8 H ABG O2 Saturation ABG Base Excess 5.4 H ABG Hemoglobin 10.0 L Oxyhemoglobin 92.9 L Sodium Potassium Chloride Carbon Dioxide BUN Creatinine Glucose 314 H POC Glucose Lactic Acid Calcium Magnesium AST ALT Lactate Dehydrogenase 236 H Total Creatine Kinase C-Reactive Protein 8.40 H Albumin Urine WBC (Auto) Urine Total Protein Digoxin Salicylates Acetaminophen < 5.0 L 12/18/19 12/18/19 12/18/19 16:35 18:30 22:56 WBC RBC Hgb Hct MCV MCH MCHC RDW Lymph % (Auto) [place] % (Auto) Eos % (Auto) Lymph # [place] # Eos # Seg Neutrophils % Monocytes % (Manual) Monocytes # (Manual) D-Dimer ABG pH ABG pO2 ABG HCO3 ABG O2 Saturation ABG Base Excess ABG Hemoglobin Oxyhemoglobin Sodium Potassium Chloride Carbon Dioxide BUN Creatinine Glucose POC Glucose 310 H 353 H Lactic Acid 2.50 H* Calcium Magnesium AST ALT Lactate Dehydrogenase Total Creatine Kinase C-Reactive Protein Albumin Urine WBC (Auto) Urine Total Protein Digoxin Salicylates Acetaminophen 12/19/19 12/19/19 12/19/19 04:13 04:13 06:00 WBC RBC Hgb 10.0 L Hct 34.2 L MCV MCH 25 L MCHC 29 L RDW 19.0 H Lymph % (Auto) [place] % (Auto) 10.1 H Eos % (Auto) Lymph # [place] # 1.1 H Eos # Seg Neutrophils % 71.8 H Monocytes % (Manual) Monocytes # (Manual) D-Dimer ABG pH ABG pO2 186.5 H ABG HCO3 27.8 H ABG O2 Saturation 99.1 H ABG Base Excess ABG Hemoglobin 10.4 L Oxyhemoglobin Sodium 157 H Potassium Chloride 119.1 H Carbon Dioxide BUN 26 H Creatinine Glucose 302 H POC Glucose Lactic Acid Calcium 7.9 L Magnesium AST 85 H ALT 61 H Lactate Dehydrogenase Total Creatine Kinase C-Reactive Protein Albumin 3.0 L Urine WBC (Auto) Urine Total Protein Digoxin Salicylates Acetaminophen 12/19/19 12/19/19 12/19/19 08:30 11:55 16:50 WBC RBC Hgb Hct MCV MCH MCHC RDW Lymph % (Auto) [place] % (Auto) Eos % (Auto) Lymph # [place] # Eos # Seg Neutrophils % Monocytes % (Manual) Monocytes # (Manual) D-Dimer ABG pH ABG pO2 ABG HCO3 ABG O2 Saturation ABG Base Excess ABG Hemoglobin Oxyhemoglobin Sodium Potassium Chloride Carbon Dioxide BUN Creatinine Glucose POC Glucose 264 H 251 H Lactic Acid Calcium Magnesium AST ALT Lactate Dehydrogenase Total Creatine Kinase C-Reactive Protein Albumin Urine WBC (Auto) 7.0 H Urine Total Protein Digoxin Salicylates Acetaminophen 12/19/19 12/19/19 12/20/19 17:41 23:42 03:35 WBC RBC Hgb Hct MCV MCH MCHC RDW Lymph % (Auto) [place] % (Auto) Eos % (Auto) Lymph # [place] # Eos # Seg Neutrophils % Monocytes % (Manual) Monocytes # (Manual) D-Dimer ABG pH ABG pO2 ABG HCO3 27.7 H ABG O2 Saturation ABG Base Excess ABG Hemoglobin 11.6 L Oxyhemoglobin 94.9 L Sodium Potassium Chloride Carbon Dioxide BUN Creatinine Glucose POC Glucose 180 H 205 H Lactic Acid Calcium Magnesium AST ALT Lactate Dehydrogenase Total Creatine Kinase C-Reactive Protein Albumin Urine WBC (Auto) Urine Total Protein Digoxin Salicylates Acetaminophen 12/20/19 12/20/19 12/20/19 04:45 04:45 05:27 WBC RBC Hgb 9.4 L Hct 31.4 L MCV MCH 25 L MCHC 30 L RDW 19.4 H Lymph % (Auto) [place] % (Auto) 10.2 H Eos % (Auto) 6.0 H Lymph # 0.9 L [place] # Eos # Seg Neutrophils % Monocytes % (Manual) Monocytes # (Manual) D-Dimer ABG pH ABG pO2 ABG HCO3 ABG O2 Saturation ABG Base Excess ABG Hemoglobin Oxyhemoglobin Sodium 153 H Potassium Chloride 114.6 H Carbon Dioxide BUN Creatinine Glucose 170 H POC Glucose 188 H Lactic Acid Calcium 7.9 L Magnesium AST ALT Lactate Dehydrogenase Total Creatine Kinase C-Reactive Protein Albumin Urine WBC (Auto) Urine Total Protein Digoxin Salicylates Acetaminophen 12/20/19 12/20/19 12/21/19 12:26 18:20 00:20 WBC RBC Hgb Hct MCV MCH MCHC RDW Lymph % (Auto) [place] % (Auto) Eos % (Auto) Lymph # [place] # Eos # Seg Neutrophils % Monocytes % (Manual) Monocytes # (Manual) D-Dimer ABG pH ABG pO2 ABG HCO3 ABG O2 Saturation ABG Base Excess ABG Hemoglobin Oxyhemoglobin Sodium Potassium Chloride Carbon Dioxide BUN Creatinine Glucose POC Glucose 200 H 263 H 218 H Lactic Acid Calcium Magnesium AST ALT Lactate Dehydrogenase Total Creatine Kinase C-Reactive Protein Albumin Urine WBC (Auto) Urine Total Protein Digoxin Salicylates Acetaminophen 12/21/19 12/21/19 12/21/19 04:38 05:26 12:35 WBC RBC Hgb Hct MCV MCH MCHC RDW Lymph % (Auto) [place] % (Auto) Eos % (Auto) Lymph # [place] # Eos # Seg Neutrophils % Monocytes % (Manual) Monocytes # (Manual) D-Dimer ABG pH ABG pO2 ABG HCO3 ABG O2 Saturation ABG Base Excess ABG Hemoglobin Oxyhemoglobin Sodium 149 H Potassium 3.5 L Chloride 110.5 H Carbon Dioxide BUN Creatinine Glucose 158 H POC Glucose 193 H 193 H Lactic Acid Calcium Magnesium AST ALT Lactate Dehydrogenase Total Creatine Kinase C-Reactive Protein Albumin Urine WBC (Auto) Urine Total Protein Digoxin Salicylates Acetaminophen 12/21/19 12/22/19 12/22/19 18:29 00:03 05:15 WBC RBC Hgb 10.3 L Hct 34.7 L MCV MCH 25 L MCHC 30 L RDW 19.4 H Lymph % (Auto) 9.0 L [place] % (Auto) 12.3 H Eos % (Auto) 5.0 H Lymph # 0.5 L [place] # Eos # Seg Neutrophils % 73.2 H Monocytes % (Manual) Monocytes # (Manual) D-Dimer ABG pH ABG pO2 ABG HCO3 ABG O2 Saturation ABG Base Excess ABG Hemoglobin Oxyhemoglobin Sodium Potassium Chloride Carbon Dioxide BUN Creatinine Glucose POC Glucose 186 H 143 H Lactic Acid Calcium Magnesium AST ALT Lactate Dehydrogenase Total Creatine Kinase C-Reactive Protein Albumin Urine WBC (Auto) Urine Total Protein Digoxin Salicylates Acetaminophen 12/22/19 12/22/19 12/22/19 05:15 06:02 12:13 WBC RBC Hgb Hct MCV MCH MCHC RDW Lymph % (Auto) [place] % (Auto) Eos % (Auto) Lymph # [place] # Eos # Seg Neutrophils % Monocytes % (Manual) Monocytes # (Manual) D-Dimer ABG pH ABG pO2 ABG HCO3 ABG O2 Saturation ABG Base Excess ABG Hemoglobin Oxyhemoglobin Sodium 152 H Potassium Chloride 113.5 H Carbon Dioxide BUN Creatinine Glucose 126 H POC Glucose 144 H 159 H Lactic Acid Calcium Magnesium AST ALT Lactate Dehydrogenase Total Creatine Kinase C-Reactive Protein Albumin Urine WBC (Auto) Urine Total Protein Digoxin Salicylates Acetaminophen 12/22/19 12/22/19 12/23/19 18:03 23:50 05:27 WBC RBC Hgb Hct MCV MCH MCHC RDW Lymph % (Auto) [place] % (Auto) Eos % (Auto) Lymph # [place] # Eos # Seg Neutrophils % Monocytes % (Manual) Monocytes # (Manual) D-Dimer ABG pH ABG pO2 ABG HCO3 ABG O2 Saturation ABG Base Excess ABG Hemoglobin Oxyhemoglobin Sodium Potassium Chloride Carbon Dioxide BUN Creatinine Glucose POC Glucose 140 H 227 H 185 H Lactic Acid Calcium Magnesium AST ALT Lactate Dehydrogenase Total Creatine Kinase C-Reactive Protein Albumin Urine WBC (Auto) Urine Total Protein Digoxin Salicylates Acetaminophen 12/23/19 12/23/19 12/23/19 12:13 16:05 16:40 WBC RBC Hgb Hct MCV MCH MCHC RDW Lymph % (Auto) [place] % (Auto) Eos % (Auto) Lymph # [place] # Eos # Seg Neutrophils % Monocytes % (Manual) Monocytes # (Manual) D-Dimer ABG pH 7.259 L ABG pO2 76.2 L ABG HCO3 30.6 H ABG O2 Saturation 94.6 L ABG Base Excess ABG Hemoglobin 11.5 L Oxyhemoglobin 92.2 L Sodium 163 H* D Potassium 3.4 L Chloride 120.1 H Carbon Dioxide BUN Creatinine Glucose 162 H POC Glucose 132 H Lactic Acid Calcium Magnesium AST ALT Lactate Dehydrogenase Total Creatine Kinase C-Reactive Protein Albumin Urine WBC (Auto) Urine Total Protein Digoxin Salicylates Acetaminophen 12/23/19 12/24/19 12/24/19 17:53 00:48 04:20 WBC RBC Hgb Hct MCV MCH MCHC RDW Lymph % (Auto) [place] % (Auto) Eos % (Auto) Lymph # [place] # Eos # Seg Neutrophils % Monocytes % (Manual) Monocytes # (Manual) D-Dimer ABG pH ABG pO2 ABG HCO3 30.4 H ABG O2 Saturation ABG Base Excess 3.9 H ABG Hemoglobin 10.3 L Oxyhemoglobin 94.4 L Sodium Potassium Chloride Carbon Dioxide BUN Creatinine Glucose POC Glucose 180 H 174 H Lactic Acid Calcium Magnesium AST ALT Lactate Dehydrogenase Total Creatine Kinase C-Reactive Protein Albumin Urine WBC (Auto) Urine Total Protein Digoxin Salicylates Acetaminophen 12/24/19 12/24/19 12/24/19 04:53 04:53 11:50 WBC RBC Hgb 9.7 L Hct 33.2 L MCV MCH 25 L MCHC 29 L RDW 20.1 H Lymph % (Auto) [place] % (Auto) Eos % (Auto) Lymph # [place] # Eos # Seg Neutrophils % Monocytes % (Manual) 15.0 H Monocytes # (Manual) 0.9 H D-Dimer ABG pH ABG pO2 ABG HCO3 ABG O2 Saturation ABG Base Excess ABG Hemoglobin Oxyhemoglobin Sodium 163 H* Potassium 3.2 L Chloride 122.6 H Carbon Dioxide BUN Creatinine Glucose 168 H POC Glucose 190 H Lactic Acid Calcium Magnesium AST ALT Lactate Dehydrogenase Total Creatine Kinase C-Reactive Protein Albumin Urine WBC (Auto) Urine Total Protein Digoxin Salicylates Acetaminophen 12/24/19 12/24/19 12/24/19 15:00 16:28 21:15 WBC RBC Hgb Hct MCV MCH MCHC RDW Lymph % (Auto) [place] % (Auto) Eos % (Auto) Lymph # [place] # Eos # Seg Neutrophils % Monocytes % (Manual) Monocytes # (Manual) D-Dimer ABG pH ABG pO2 ABG HCO3 ABG O2 Saturation ABG Base Excess ABG Hemoglobin Oxyhemoglobin Sodium 165 H* D 163 H* Potassium Chloride Carbon Dioxide BUN Creatinine Glucose POC Glucose 160 H Lactic Acid Calcium Magnesium AST ALT Lactate Dehydrogenase Total Creatine Kinase C-Reactive Protein Albumin Urine WBC (Auto) Urine Total Protein Digoxin Salicylates Acetaminophen 12/25/19 12/25/19 12/25/19 00:31 05:38 05:46 WBC RBC Hgb 9.7 L Hct 32.5 L MCV MCH 25 L MCHC 30 L RDW 19.4 H Lymph % (Auto) [place] % (Auto) Eos % (Auto) Lymph # [place] # Eos # Seg Neutrophils % Monocytes % (Manual) Monocytes # (Manual) D-Dimer ABG pH ABG pO2 ABG HCO3 ABG O2 Saturation ABG Base Excess ABG Hemoglobin Oxyhemoglobin Sodium Potassium Chloride Carbon Dioxide BUN Creatinine Glucose POC Glucose 182 H 194 H Lactic Acid Calcium Magnesium AST ALT Lactate Dehydrogenase Total Creatine Kinase C-Reactive Protein Albumin Urine WBC (Auto) Urine Total Protein Digoxin Salicylates Acetaminophen 12/25/19 12/25/19 12/25/19 05:46 11:35 11:38 WBC RBC Hgb Hct MCV MCH MCHC RDW Lymph % (Auto) [place] % (Auto) Eos % (Auto) Lymph # [place] # Eos # Seg Neutrophils % Monocytes % (Manual) Monocytes # (Manual) D-Dimer ABG pH 7.330 L ABG pO2 65.7 L ABG HCO3 32.6 H ABG O2 Saturation 92.5 L ABG Base Excess 5.3 H ABG Hemoglobin 10.4 L Oxyhemoglobin 90.0 L Sodium 166 H* Potassium 2.9 L* Chloride 124.5 H Carbon Dioxide BUN Creatinine Glucose 190 H POC Glucose 192 H Lactic Acid Calcium Magnesium AST ALT Lactate Dehydrogenase Total Creatine Kinase C-Reactive Protein Albumin Urine WBC (Auto) Urine Total Protein Digoxin Salicylates Acetaminophen 12/25/19 12/25/19 12/25/19 13:01 16:45 17:20 WBC RBC Hgb Hct MCV MCH MCHC RDW Lymph % (Auto) [place] % (Auto) Eos % (Auto) Lymph # [place] # Eos # Seg Neutrophils % Monocytes % (Manual) Monocytes # (Manual) D-Dimer ABG pH 7.296 L ABG pO2 101.5 H ABG HCO3 33.2 H ABG O2 Saturation ABG Base Excess 5.3 H ABG Hemoglobin 9.6 L Oxyhemoglobin 94.6 L Sodium 174 H* Potassium Chloride Carbon Dioxide BUN Creatinine Glucose POC Glucose Lactic Acid Calcium Magnesium AST ALT Lactate Dehydrogenase Total Creatine Kinase C-Reactive Protein Albumin Urine WBC (Auto) Urine Total Protein < 4 L Digoxin Salicylates Acetaminophen 12/25/19 12/25/19 12/26/19 17:48 18:50 00:43 WBC RBC Hgb Hct MCV MCH MCHC RDW Lymph % (Auto) [place] % (Auto) Eos % (Auto) Lymph # [place] # Eos # Seg Neutrophils % Monocytes % (Manual) Monocytes # (Manual) D-Dimer ABG pH ABG pO2 ABG HCO3 ABG O2 Saturation ABG Base Excess ABG Hemoglobin Oxyhemoglobin Sodium 166 H* 164 H* Potassium Chloride 127.3 H Carbon Dioxide BUN Creatinine Glucose 220 H POC Glucose 252 H Lactic Acid Calcium Magnesium AST ALT Lactate Dehydrogenase Total Creatine Kinase C-Reactive Protein Albumin Urine WBC (Auto) Urine Total Protein Digoxin Salicylates Acetaminophen 12/26/19 12/26/19 12/26/19 05:31 08:07 08:07 WBC 4.3 L RBC Hgb 9.6 L Hct 32.1 L MCV MCH 26 L MCHC 30 L RDW 20.5 H Lymph % (Auto) [place] % (Auto) Eos % (Auto) Lymph # [place] # Eos # Seg Neutrophils % Monocytes % (Manual) Monocytes # (Manual) D-Dimer ABG pH ABG pO2 ABG HCO3 ABG O2 Saturation ABG Base Excess ABG Hemoglobin Oxyhemoglobin Sodium 162 H* Potassium Chloride 122.1 H Carbon Dioxide BUN Creatinine Glucose 247 H POC Glucose 187 H Lactic Acid Calcium Magnesium AST ALT Lactate Dehydrogenase Total Creatine Kinase C-Reactive Protein Albumin Urine WBC (Auto) Urine Total Protein Digoxin Salicylates Acetaminophen 12/26/19 12/26/19 12/26/19 08:07 12:20 16:25 WBC RBC Hgb Hct MCV MCH MCHC RDW Lymph % (Auto) [place] % (Auto) Eos % (Auto) Lymph # [place] # Eos # Seg Neutrophils % Monocytes % (Manual) Monocytes # (Manual) D-Dimer ABG pH 7.290 L ABG pO2 73.2 L ABG HCO3 33.2 H ABG O2 Saturation 94.9 L ABG Base Excess 5.2 H ABG Hemoglobin 10.0 L Oxyhemoglobin 92.5 L Sodium 159 H Potassium Chloride Carbon Dioxide BUN Creatinine Glucose POC Glucose 234 H Lactic Acid Calcium Magnesium AST ALT Lactate Dehydrogenase Total Creatine Kinase C-Reactive Protein Albumin Urine WBC (Auto) Urine Total Protein Digoxin Salicylates Acetaminophen 12/26/19 12/26/19 12/26/19 17:33 22:35 23:30 WBC RBC Hgb Hct MCV MCH MCHC RDW Lymph % (Auto) [place] % (Auto) Eos % (Auto) Lymph # [place] # Eos # Seg Neutrophils % Monocytes % (Manual) Monocytes # (Manual) D-Dimer ABG pH ABG pO2 ABG HCO3 ABG O2 Saturation ABG Base Excess ABG Hemoglobin Oxyhemoglobin Sodium Potassium Chloride Carbon Dioxide BUN Creatinine Glucose POC Glucose 244 H 208 H 287 H Lactic Acid Calcium Magnesium AST ALT Lactate Dehydrogenase Total Creatine Kinase C-Reactive Protein Albumin Urine WBC (Auto) Urine Total Protein Digoxin Salicylates Acetaminophen 12/27/19 12/27/19 12/27/19 03:48 03:48 03:48 WBC RBC Hgb 10.1 L Hct 35.4 L MCV MCH 25 L MCHC 29 L RDW 20.1 H Lymph % (Auto) [place] % (Auto) Eos % (Auto) Lymph # [place] # Eos # Seg Neutrophils % Monocytes % (Manual) Monocytes # (Manual) D-Dimer ABG pH ABG pO2 ABG HCO3 ABG O2 Saturation ABG Base Excess ABG Hemoglobin Oxyhemoglobin Sodium 160 H Potassium Chloride 118.8 H Carbon Dioxide 33 H BUN Creatinine Glucose 217 H POC Glucose Lactic Acid Calcium Magnesium 2.70 H AST ALT Lactate Dehydrogenase Total Creatine Kinase C-Reactive Protein Albumin Urine WBC (Auto) Urine Total Protein Digoxin Salicylates Acetaminophen 12/27/19 12/27/19 12/27/19 05:50 11:58 16:05 WBC RBC Hgb Hct MCV MCH MCHC RDW Lymph % (Auto) [place] % (Auto) Eos % (Auto) Lymph # [place] # Eos # Seg Neutrophils % Monocytes % (Manual) Monocytes # (Manual) D-Dimer ABG pH 7.180 L* ABG pO2 73.6 L ABG HCO3 34.8 H ABG O2 Saturation 92.7 L ABG Base Excess 3.8 H ABG Hemoglobin 12.0 L Oxyhemoglobin 90.2 L Sodium Potassium Chloride Carbon Dioxide BUN Creatinine Glucose POC Glucose 224 H 218 H Lactic Acid Calcium Magnesium AST ALT Lactate Dehydrogenase Total Creatine Kinase C-Reactive Protein Albumin Urine WBC (Auto) Urine Total Protein Digoxin Salicylates Acetaminophen 12/27/19 12/27/19 12/27/19 18:05 19:50 21:53 WBC RBC Hgb Hct MCV MCH MCHC RDW Lymph % (Auto) [place] % (Auto) Eos % (Auto) Lymph # [place] # Eos # Seg Neutrophils % Monocytes % (Manual) Monocytes # (Manual) D-Dimer ABG pH 7.328 L ABG pO2 49.9 L ABG HCO3 33.3 H ABG O2 Saturation 87.1 L ABG Base Excess 5.7 H ABG Hemoglobin 11.2 L Oxyhemoglobin 84.8 L Sodium Potassium Chloride Carbon Dioxide BUN Creatinine Glucose POC Glucose 214 H 178 H Lactic Acid Calcium Magnesium AST ALT Lactate Dehydrogenase Total Creatine Kinase C-Reactive Protein Albumin Urine WBC (Auto) Urine Total Protein Digoxin Salicylates Acetaminophen 12/28/19 12/28/19 12/28/19 00:42 04:37 04:37 WBC RBC Hgb 9.8 L Hct 33.5 L MCV MCH 25 L MCHC 29 L RDW 21.1 H Lymph % (Auto) [place] % (Auto) Eos % (Auto) Lymph # [place] # Eos # Seg Neutrophils % Monocytes % (Manual) Monocytes # (Manual) D-Dimer ABG pH ABG pO2 ABG HCO3 ABG O2 Saturation ABG Base Excess ABG Hemoglobin Oxyhemoglobin Sodium 157 H Potassium 3.4 L Chloride 117.5 H Carbon Dioxide BUN Creatinine Glucose 193 H POC Glucose 157 H Lactic Acid Calcium Magnesium AST ALT Lactate Dehydrogenase Total Creatine Kinase C-Reactive Protein Albumin Urine WBC (Auto) Urine Total Protein Digoxin Salicylates Acetaminophen 12/28/19 12/28/19 12/28/19 04:52 05:19 12:05 WBC RBC Hgb Hct MCV MCH MCHC RDW Lymph % (Auto) [place] % (Auto) Eos % (Auto) Lymph # [place] # Eos # Seg Neutrophils % Monocytes % (Manual) Monocytes # (Manual) D-Dimer ABG pH ABG pO2 51.7 L ABG HCO3 28.7 H ABG O2 Saturation 89.9 L ABG Base Excess 4.1 H ABG Hemoglobin 9.7 L Oxyhemoglobin 87.7 L Sodium Potassium Chloride Carbon Dioxide BUN Creatinine Glucose POC Glucose 202 H 248 H Lactic Acid Calcium Magnesium AST ALT Lactate Dehydrogenase Total Creatine Kinase C-Reactive Protein Albumin Urine WBC (Auto) Urine Total Protein Digoxin Salicylates Acetaminophen 12/28/19 12/28/19 12/28/19 18:11 21:15 23:22 WBC RBC Hgb Hct MCV MCH MCHC RDW Lymph % (Auto) [place] % (Auto) Eos % (Auto) Lymph # [place] # Eos # Seg Neutrophils % Monocytes % (Manual) Monocytes # (Manual) D-Dimer ABG pH ABG pO2 ABG HCO3 ABG O2 Saturation ABG Base Excess ABG Hemoglobin Oxyhemoglobin Sodium Potassium Chloride Carbon Dioxide BUN Creatinine Glucose POC Glucose 226 H 217 H 227 H Lactic Acid Calcium Magnesium AST ALT Lactate Dehydrogenase Total Creatine Kinase C-Reactive Protein Albumin Urine WBC (Auto) Urine Total Protein Digoxin Salicylates Acetaminophen 12/29/19 12/29/19 12/29/19 04:09 04:59 04:59 WBC 11.1 H RBC Hgb 9.3 L Hct 31.1 L MCV 81 L MCH 24 L MCHC 30 L RDW 19.9 H Lymph % (Auto) [place] % (Auto) Eos % (Auto) Lymph # [place] # Eos # Seg Neutrophils % Monocytes % (Manual) Monocytes # (Manual) D-Dimer ABG pH 7.473 H ABG pO2 126.1 H ABG HCO3 29.2 H ABG O2 Saturation ABG Base Excess 5.1 H ABG Hemoglobin 8.4 L Oxyhemoglobin Sodium 157 H Potassium 3.2 L Chloride 118.2 H Carbon Dioxide BUN Creatinine 1.7 H Glucose 229 H POC Glucose Lactic Acid Calcium Magnesium AST ALT Lactate Dehydrogenase Total Creatine Kinase C-Reactive Protein Albumin Urine WBC (Auto) Urine Total Protein Digoxin Salicylates Acetaminophen 12/29/19 12/29/19 12/29/19 05:15 12:13 17:59 WBC RBC Hgb Hct MCV MCH MCHC RDW Lymph % (Auto) [place] % (Auto) Eos % (Auto) Lymph # [place] # Eos # Seg Neutrophils % Monocytes % (Manual) Monocytes # (Manual) D-Dimer ABG pH ABG pO2 ABG HCO3 ABG O2 Saturation ABG Base Excess ABG Hemoglobin Oxyhemoglobin Sodium Potassium Chloride Carbon Dioxide BUN Creatinine Glucose POC Glucose 221 H 392 H 365 H Lactic Acid Calcium Magnesium AST ALT Lactate Dehydrogenase Total Creatine Kinase C-Reactive Protein Albumin Urine WBC (Auto) Urine Total Protein Digoxin Salicylates Acetaminophen 12/29/19 12/29/19 12/30/19 20:25 23:38 04:45 WBC RBC Hgb Hct MCV MCH MCHC RDW Lymph % (Auto) [place] % (Auto) Eos % (Auto) Lymph # [place] # Eos # Seg Neutrophils % Monocytes % (Manual) Monocytes # (Manual) D-Dimer ABG pH 7.261 L 7.343 L ABG pO2 60.3 L 54.3 L ABG HCO3 32.1 H 30.9 H ABG O2 Saturation 87.6 L 88.3 L ABG Base Excess 3.7 H 4.0 H ABG Hemoglobin 9.7 L 11.6 L Oxyhemoglobin 85.2 L 86.0 L Sodium Potassium Chloride Carbon Dioxide BUN Creatinine Glucose POC Glucose 402 H Lactic Acid Calcium Magnesium AST ALT Lactate Dehydrogenase Total Creatine Kinase C-Reactive Protein Albumin Urine WBC (Auto) Urine Total Protein Digoxin Salicylates Acetaminophen 12/30/19 12/30/19 12/30/19 05:06 05:06 05:06 WBC 11.7 H RBC Hgb 9.4 L Hct 32.4 L MCV 83 L MCH 24 L MCHC 29 L RDW 20.2 H Lymph % (Auto) [place] % (Auto) Eos % (Auto) Lymph # [place] # Eos # Seg Neutrophils % Monocytes % (Manual) Monocytes # (Manual) D-Dimer ABG pH ABG pO2 ABG HCO3 ABG O2 Saturation ABG Base Excess ABG Hemoglobin Oxyhemoglobin Sodium 159 H Potassium 3.2 L Chloride 120.1 H Carbon Dioxide 31 H BUN Creatinine 1.9 H Glucose 404 H POC Glucose Lactic Acid Calcium Magnesium 2.60 H AST ALT Lactate Dehydrogenase Total Creatine Kinase C-Reactive Protein Albumin Urine WBC (Auto) Urine Total Protein Digoxin Salicylates Acetaminophen 12/30/19 12/30/19 12/30/19 06:26 12:29 13:44 WBC RBC Hgb Hct MCV MCH MCHC RDW Lymph % (Auto) [place] % (Auto) Eos % (Auto) Lymph # [place] # Eos # Seg Neutrophils % Monocytes % (Manual) Monocytes # (Manual) D-Dimer ABG pH ABG pO2 ABG HCO3 ABG O2 Saturation ABG Base Excess ABG Hemoglobin Oxyhemoglobin Sodium Potassium Chloride Carbon Dioxide BUN Creatinine Glucose POC Glucose 399 H 469 H > 500 H Lactic Acid Calcium Magnesium AST ALT Lactate Dehydrogenase Total Creatine Kinase C-Reactive Protein Albumin Urine WBC (Auto) Urine Total Protein Digoxin Salicylates Acetaminophen 12/30/19 12/30/19 12/30/19 13:51 16:32 18:05 WBC RBC Hgb Hct MCV MCH MCHC RDW Lymph % (Auto) [place] % (Auto) Eos % (Auto) Lymph # [place] # Eos # Seg Neutrophils % Monocytes % (Manual) Monocytes # (Manual) D-Dimer ABG pH ABG pO2 ABG HCO3 ABG O2 Saturation ABG Base Excess ABG Hemoglobin Oxyhemoglobin Sodium Potassium Chloride Carbon Dioxide BUN Creatinine Glucose POC Glucose > 500 H 445 H 429 H Lactic Acid Calcium Magnesium AST ALT Lactate Dehydrogenase Total Creatine Kinase C-Reactive Protein Albumin Urine WBC (Auto) Urine Total Protein Digoxin Salicylates Acetaminophen 12/30/19 12/30/19 12/31/19 21:42 Unknown 00:00 WBC RBC Hgb Hct MCV MCH MCHC RDW Lymph % (Auto) [place] % (Auto) Eos % (Auto) Lymph # [place] # Eos # Seg Neutrophils % Monocytes % (Manual) Monocytes # (Manual) D-Dimer ABG pH ABG pO2 ABG HCO3 ABG O2 Saturation ABG Base Excess ABG Hemoglobin Oxyhemoglobin Sodium Potassium Chloride Carbon Dioxide BUN Creatinine Glucose 498 H POC Glucose 371 H 452 H Lactic Acid Calcium Magnesium AST ALT Lactate Dehydrogenase Total Creatine Kinase C-Reactive Protein Albumin Urine WBC (Auto) Urine Total Protein Digoxin Salicylates Acetaminophen 12/31/19 12/31/19 12/31/19 04:31 05:42 08:01 WBC RBC Hgb Hct MCV MCH MCHC RDW Lymph % (Auto) [place] % (Auto) Eos % (Auto) Lymph # [place] # Eos # Seg Neutrophils % Monocytes % (Manual) Monocytes # (Manual) D-Dimer ABG pH 7.251 L ABG pO2 62.4 L ABG HCO3 31.1 H ABG O2 Saturation 88.7 L ABG Base Excess ABG Hemoglobin 8.7 L Oxyhemoglobin 86.4 L Sodium Potassium Chloride Carbon Dioxide BUN Creatinine Glucose POC Glucose 443 H 443 H Lactic Acid Calcium Magnesium AST ALT Lactate Dehydrogenase Total Creatine Kinase C-Reactive Protein Albumin Urine WBC (Auto) Urine Total Protein Digoxin Salicylates Acetaminophen 12/31/19 12/31/19 12/31/19 09:08 10:00 11:50 WBC RBC Hgb Hct MCV MCH MCHC RDW Lymph % (Auto) [place] % (Auto) Eos % (Auto) Lymph # [place] # Eos # Seg Neutrophils % Monocytes % (Manual) Monocytes # (Manual) D-Dimer ABG pH 7.325 L ABG pO2 97.2 H ABG HCO3 30.1 H ABG O2 Saturation ABG Base Excess 3.4 H ABG Hemoglobin 8.3 L Oxyhemoglobin 94.7 L Sodium 151 H D Potassium 3.2 L Chloride 113.0 H Carbon Dioxide BUN 23 H Creatinine 1.8 H Glucose 373 H POC Glucose 465 H Lactic Acid Calcium Magnesium AST ALT Lactate Dehydrogenase Total Creatine Kinase C-Reactive Protein Albumin Urine WBC (Auto) Urine Total Protein Digoxin Salicylates Acetaminophen 12/31/19 12/31/19 12/31/19 12:25 13:33 18:30 WBC RBC Hgb Hct MCV MCH MCHC RDW Lymph % (Auto) [place] % (Auto) Eos % (Auto) Lymph # [place] # Eos # Seg Neutrophils % Monocytes % (Manual) Monocytes # (Manual) D-Dimer ABG pH ABG pO2 ABG HCO3 ABG O2 Saturation ABG Base Excess ABG Hemoglobin Oxyhemoglobin Sodium Potassium Chloride Carbon Dioxide BUN Creatinine Glucose POC Glucose 379 H 311 H 349 H Lactic Acid Calcium Magnesium AST ALT Lactate Dehydrogenase Total Creatine Kinase C-Reactive Protein Albumin Urine WBC (Auto) Urine Total Protein Digoxin Salicylates Acetaminophen 12/31/19 12/31/19 01/01/20 22:29 23:30 02:58 WBC RBC Hgb Hct MCV MCH MCHC RDW Lymph % (Auto) [place] % (Auto) Eos % (Auto) Lymph # [place] # Eos # Seg Neutrophils % Monocytes % (Manual) Monocytes # (Manual) D-Dimer ABG pH ABG pO2 ABG HCO3 ABG O2 Saturation ABG Base Excess ABG Hemoglobin Oxyhemoglobin Sodium Potassium Chloride Carbon Dioxide BUN Creatinine Glucose POC Glucose 256 H 266 H 248 H Lactic Acid Calcium Magnesium AST ALT Lactate Dehydrogenase Total Creatine Kinase C-Reactive Protein Albumin Urine WBC (Auto) Urine Total Protein Digoxin Salicylates Acetaminophen 01/01/20 01/01/20 01/01/20 04:19 06:56 10:52 WBC RBC Hgb Hct MCV MCH MCHC RDW Lymph % (Auto) [place] % (Auto) Eos % (Auto) Lymph # [place] # Eos # Seg Neutrophils % Monocytes % (Manual) Monocytes # (Manual) D-Dimer ABG pH ABG pO2 90.7 H ABG HCO3 29.1 H ABG O2 Saturation ABG Base Excess 3.8 H ABG Hemoglobin 8.1 L Oxyhemoglobin 94.5 L Sodium Potassium Chloride Carbon Dioxide BUN Creatinine Glucose POC Glucose 303 H 244 H Lactic Acid Calcium Magnesium AST ALT Lactate Dehydrogenase Total Creatine Kinase C-Reactive Protein Albumin Urine WBC (Auto) Urine Total Protein Digoxin Salicylates Acetaminophen 01/01/20 01/01/20 01/01/20 13:39 14:49 18:42 WBC RBC Hgb Hct MCV MCH MCHC RDW Lymph % (Auto) [place] % (Auto) Eos % (Auto) Lymph # [place] # Eos # Seg Neutrophils % Monocytes % (Manual) Monocytes # (Manual) D-Dimer ABG pH ABG pO2 ABG HCO3 ABG O2 Saturation ABG Base Excess ABG Hemoglobin Oxyhemoglobin Sodium 147 H Potassium Chloride 107.1 H Carbon Dioxide BUN 28 H Creatinine Glucose 207 H POC Glucose 263 H 188 H Lactic Acid Calcium Magnesium AST ALT Lactate Dehydrogenase Total Creatine Kinase C-Reactive Protein Albumin Urine WBC (Auto) Urine Total Protein Digoxin Salicylates Acetaminophen 01/02/20 01/02/20 01/02/20 02:22 03:58 05:00 WBC RBC 3.31 L Hgb 8.0 L Hct 26.9 L MCV 81 L MCH 24 L MCHC 30 L RDW 19.4 H Lymph % (Auto) [place] % (Auto) 9.4 H Eos % (Auto) 11.2 H Lymph # [place] # Eos # 0.8 H Seg Neutrophils % Monocytes % (Manual) Monocytes # (Manual) D-Dimer ABG pH ABG pO2 63.0 L ABG HCO3 31.6 H ABG O2 Saturation 91.8 L ABG Base Excess 5.5 H ABG Hemoglobin 8.6 L Oxyhemoglobin 89.6 L Sodium Potassium Chloride Carbon Dioxide BUN Creatinine Glucose POC Glucose 196 H Lactic Acid Calcium Magnesium AST ALT Lactate Dehydrogenase Total Creatine Kinase C-Reactive Protein Albumin Urine WBC (Auto) Urine Total Protein Digoxin Salicylates Acetaminophen 01/02/20 01/02/20 01/02/20 05:40 10:26 13:57 WBC RBC Hgb Hct MCV MCH MCHC RDW Lymph % (Auto) [place] % (Auto) Eos % (Auto) Lymph # [place] # Eos # Seg Neutrophils % Monocytes % (Manual) Monocytes # (Manual) D-Dimer ABG pH ABG pO2 ABG HCO3 ABG O2 Saturation ABG Base Excess ABG Hemoglobin Oxyhemoglobin Sodium Potassium Chloride Carbon Dioxide BUN Creatinine Glucose POC Glucose 189 H 157 H 178 H Lactic Acid Calcium Magnesium AST ALT Lactate Dehydrogenase Total Creatine Kinase C-Reactive Protein Albumin Urine WBC (Auto) Urine Total Protein Digoxin Salicylates Acetaminophen 01/02/20 01/03/20 01/03/20 21:27 03:12 05:26 WBC RBC Hgb Hct MCV MCH MCHC RDW Lymph % (Auto) [place] % (Auto) Eos % (Auto) Lymph # [place] # Eos # Seg Neutrophils % Monocytes % (Manual) Monocytes # (Manual) D-Dimer ABG pH 7.473 H ABG pO2 109.6 H ABG HCO3 30.4 H ABG O2 Saturation ABG Base Excess 6.2 H ABG Hemoglobin 9.9 L Oxyhemoglobin Sodium Potassium Chloride Carbon Dioxide BUN Creatinine Glucose POC Glucose 131 H 133 H Lactic Acid Calcium Magnesium AST ALT Lactate Dehydrogenase Total Creatine Kinase C-Reactive Protein Albumin Urine WBC (Auto) Urine Total Protein Digoxin Salicylates Acetaminophen 01/03/20 01/03/20 01/03/20 05:40 05:40 15:01 WBC RBC 3.45 L Hgb 8.3 L Hct 27.3 L MCV 79 L MCH 24 L MCHC 30 L RDW 19.3 H Lymph % (Auto) [place] % (Auto) Eos % (Auto) Lymph # [place] # Eos # Seg Neutrophils % Monocytes % (Manual) Monocytes # (Manual) D-Dimer ABG pH ABG pO2 ABG HCO3 ABG O2 Saturation ABG Base Excess ABG Hemoglobin Oxyhemoglobin Sodium 151 H Potassium Chloride 111.8 H Carbon Dioxide 31 H BUN 37 H Creatinine 1.8 H Glucose 187 H POC Glucose 164 H Lactic Acid Calcium Magnesium AST ALT Lactate Dehydrogenase Total Creatine Kinase C-Reactive Protein Albumin Urine WBC (Auto) Urine Total Protein Digoxin Salicylates Acetaminophen 01/03/20 01/03/20 01/04/20 18:15 22:45 02:11 WBC RBC Hgb Hct MCV MCH MCHC RDW Lymph % (Auto) [place] % (Auto) Eos % (Auto) Lymph # [place] # Eos # Seg Neutrophils % Monocytes % (Manual) Monocytes # (Manual) D-Dimer ABG pH ABG pO2 ABG HCO3 ABG O2 Saturation ABG Base Excess ABG Hemoglobin Oxyhemoglobin Sodium Potassium Chloride Carbon Dioxide BUN Creatinine Glucose POC Glucose 184 H 176 H 206 H Lactic Acid Calcium Magnesium AST ALT Lactate Dehydrogenase Total Creatine Kinase C-Reactive Protein Albumin Urine WBC (Auto) Urine Total Protein Digoxin Salicylates Acetaminophen 01/04/20 01/04/20 03:16 05:15 WBC RBC Hgb Hct MCV MCH MCHC RDW Lymph % (Auto) [place] % (Auto) Eos % (Auto) Lymph # [place] # Eos # Seg Neutrophils % Monocytes % (Manual) Monocytes # (Manual) D-Dimer ABG pH 7.282 L ABG pO2 73.2 L ABG HCO3 ABG O2 Saturation 94.5 L ABG Base Excess -6.4 L ABG Hemoglobin 10.9 L Oxyhemoglobin 92.1 L Sodium Potassium Chloride Carbon Dioxide BUN Creatinine Glucose POC Glucose 139 H Lactic Acid Calcium Magnesium AST ALT Lactate Dehydrogenase Total Creatine Kinase C-Reactive Protein Albumin Urine WBC (Auto) Urine Total Protein Digoxin Salicylates Acetaminophen Chest x-ray: image reviewed CT scan - chest: image reviewed (Bilateral lower lobe predominant dense consolidations L>R) Allied health notes reviewed: RT
--- NOTE | 2020-01-04 11:25 | Progress Note ---
Assessment and Plan Transient sinus bradycardia echo: LVEF 45-50% TSH 2.3 Pneumonia negative COVID PCR x 2 Acute Respiratory failure Acute kidney injury positive MRSA-sputum Anemia Avoid AV estella blocking agents. Continue telemetry monitoring Subjective Date of service: 01/04/20 Principal diagnosis: Ac. Hypoxemic Resp Failure; Septic Shock; [place]. PNA; PUI COVID-19; CHF; JOE Interval history: Nurse reports transient sinus bradycardia, ranging in the 50s after dopamine was briefly placed on hold. Patient was restarted on dopamine and currently is in sinus rhythm with a heart rate of 80. Objective Vital Signs Temp Pulse Pulse Pulse Resp Resp BP 01/04/20 10:00 71 24 131/64 01/04/20 09:30 67 24 88/32 01/04/20 09:00 87 78 24 24 92/47 01/04/20 08:42 83 95/59 01/04/20 08:30 84 23 95/59 01/04/20 08:00 98.2 F 80 87 25 H 119/59 01/04/20 07:30 79 24 102/52 01/04/20 07:00 78 24 116/57 01/04/20 06:30 87 24 98/49 01/04/20 06:00 83 24 90/54 01/04/20 05:30 89 21 94/51 01/04/20 05:00 90 17 114/63 01/04/20 04:30 83 24 113/61 01/04/20 04:21 87 126/68 01/04/20 04:00 102 H 96 H 12 134/78 01/04/20 03:47 99.6 F 01/04/20 03:30 84 24 113/61 01/04/20 03:00 87 24 126/68 01/04/20 02:30 107 H 14 131/67 01/04/20 02:00 102 H 23 129/64 01/04/20 01:30 107 H 19 106/64 01/04/20 01:00 74 24 120/60 01/04/20 00:30 82 24 127/65 01/04/20 00:00 99.2 F 82 96 H 25 H 115/64 01/03/20 23:55 71 134/66 01/03/20 23:30 62 26 H 113/62 01/03/20 23:00 70 26 H 100/58 01/03/20 22:30 78 26 H 97/54 01/03/20 22:12 95 H 25 H 107/54 01/03/20 21:00 83 24 107/54 01/03/20 20:30 89 24 99/51 01/03/20 20:01 90 104/54 01/03/20 20:00 99.6 F 85 92 H 96 H 24 24 104/54 01/03/20 19:30 87 15 107/57 01/03/20 19:06 94 H 24 113/63 01/03/20 19:00 88 24 113/63 01/03/20 18:30 95 H 29 H 121/65 01/03/20 18:00 87 24 114/57 01/03/20 17:30 82 24 110/56 01/03/20 17:00 82 24 106/56 01/03/20 16:30 82 24 111/57 01/03/20 16:00 100.1 F H 108 H 13 113/66 01/03/20 15:30 84 23 118/61 01/03/20 15:00 96 H 24 104/57 01/03/20 14:30 78 24 130/63 01/03/20 14:00 68 24 81/41 01/03/20 13:30 91 H 24 101/53 01/03/20 13:00 87 24 115/59 01/03/20 12:30 90 24 122/60 01/03/20 12:00 100.5 F H 83 24 125/65 01/03/20 11:30 77 24 97/44 Pulse Ox 01/04/20 10:00 97 01/04/20 09:30 98 01/04/20 09:00 88 01/04/20 08:42 95 01/04/20 08:30 96 01/04/20 08:00 94 01/04/20 07:30 95 01/04/20 07:00 96 01/04/20 06:30 95 01/04/20 06:00 96 01/04/20 05:30 94 01/04/20 05:00 94 01/04/20 04:30 94 01/04/20 04:21 92 01/04/20 04:00 90 01/04/20 03:47 01/04/20 03:30 93 01/04/20 03:00 92 01/04/20 02:30 94 01/04/20 02:00 88 01/04/20 01:30 93 01/04/20 01:00 93 01/04/20 00:30 93 01/04/20 00:00 96 01/03/20 23:55 93 01/03/20 23:30 100 01/03/20 23:00 97 01/03/20 22:30 96 01/03/20 22:12 89 01/03/20 21:00 93 01/03/20 20:30 92 01/03/20 20:01 93 01/03/20 20:00 94 01/03/20 19:30 95 01/03/20 19:06 94 01/03/20 19:00 95 01/03/20 18:30 93 01/03/20 18:00 95 01/03/20 17:30 94 01/03/20 17:00 94 01/03/20 16:30 94 01/03/20 16:00 92 01/03/20 15:30 95 01/03/20 15:00 95 01/03/20 14:30 96 01/03/20 14:00 94 01/03/20 13:30 93 01/03/20 13:00 94 01/03/20 12:30 94 01/03/20 12:00 95 01/03/20 11:30 95 - Physical Examination General: Other (intubated on the vent) Cardiac: Positive: Reg Rate and Rhythm - Allied health notes Allied health notes reviewed: RT
--- NOTE | 2020-01-04 11:34 | Progress Note ---
Assessment and Plan Cultures: Blood culture 12/18/2019 no growth Urine culture 12/19/2019 no growth Sputum culture 12/18/2019 no growth Sputum culture 12/27/2019 MRSA Blood culture 12/18/2019 no growth Blood culture 12/30/2019 no growth today A/P: 59-year-old male past medical history diastolic CHF, OHS, HTN, DM 2, hypothyroidism #Sepsis with septic shock: Remains on dopamine drip, remains with low-grade fever, unclear source,? possible MRSA pneumonia. ? Lymphoproliferative disorder. #MRSA pneumonia: sputum 12/26 +MRSA. CT showed bibasilar groundglass opacity. #Acute hypoxic respiratory failure: remains intubated Fio2 45,p8. CXR with increased interstitial consolidation and effusions #Diabetes: Tight glycemic control. #Multiple chronic comorbidities #JAGDEEP: creat is up #CHF #Multiple retroperitoneal lymph nodes and left cervical, subclavian lymph nodes? Lymphoproliferative disorder Recs: -continue cefepime and fluconazole -day 6 of 7 -extended -continue linezolid 600 mg IV q 12 hour - day 7 of 10 -Lymph node biopsy per primary team guarded prognosis will follow MD Jahaira [facility] ([facility]) Office [phone] Subjective Date of service: 01/04/20 Principal diagnosis: Ac. Hypoxemic Resp Failure; Septic Shock; [place]. PNA; PUI COVID-19; CHF; JOE Interval history: Remains critically ill, intubated, on dopamine drip. Objective - Exam Narrative Exam: Constitutional: intubated sedated Head, Ears, Nose: Normocephalic, atraumatic. Eyes: Conjunctivae/corneas clear. No icterus. No ptosis. Oral: +ETT Cardiovascular: S1, S2 normal. Respiratory: Good air entry, clear to auscultation bilaterally GI: Soft, distended non-tender; bowel sounds normal. No peritoneal signs. Musculoskeletal:keiry leg edema Skin:groin irritation Hem/Lymphatic: No palpable cervical or supraclavicular nodes. No lymphangitis Neurological: sedated - Constitutional Vitals: Vital Signs Temp Pulse Resp BP Pulse Ox 98.2 F 71 24 131/64 97 01/04/20 08:00 01/04/20 10:01/04/20 10:01/04/20 10:00 01/04/20 10:00 Temperature -Last 24 Hours Temperature 98.2 F Temperature 99.6 F Temperature 99.2 F Temperature 99.2 F Temperature 99.2 F Temperature 99.6 F Temperature 100.1 F Temperature 100.5 F - Labs CBC & Chem 7: 01/03/20 05:40 01/03/20 05:40 Labs: Abnormal lab results 01/03/20 01/03/20 01/03/20 Range/Units 15:01 18:15 22:45 ABG pH (7.350-7.450) pH Units ABG pO2 (80.0-90.0) mm Hg ABG O2 Saturation (95.0-99.0) % ABG Base Excess (-2.0-3.0) mmol/L ABG Hemoglobin (14.0-18.0) gm/dl Oxyhemoglobin (95.0-99.0) % POC Glucose 164 H 184 H 176 H (70-105) 01/04/20 01/04/20 01/04/20 Range/Units 02:11 03:16 05:15 ABG pH 7.282 L (7.350-7.450) pH Units ABG pO2 73.2 L (80.0-90.0) mm Hg ABG O2 Saturation 94.5 L (95.0-99.0) % ABG Base Excess -6.4 L (-2.0-3.0) mmol/L ABG Hemoglobin 10.9 L (14.0-18.0) gm/dl Oxyhemoglobin 92.1 L (95.0-99.0) % POC Glucose 206 H 139 H (70-105) 01/04/20 Range/Units 10:53 ABG pH (7.350-7.450) pH Units ABG pO2 (80.0-90.0) mm Hg ABG O2 Saturation (95.0-99.0) % ABG Base Excess (-2.0-3.0) mmol/L ABG Hemoglobin (14.0-18.0) gm/dl Oxyhemoglobin (95.0-99.0) % POC Glucose 224 H (70-105)
[2020-01-04 12:05] LABS: Mean Corpuscular HGB Conc 30 % (32-34); Mean Corpuscular Volume 80 fl (84-94); Platelet Count 362 K/mm3 (140-440); Red Blood Count 3.46 M/mm3 (3.65-5.03); Red Cell Distribution Width 19.7 % (13.2-15.2)
[2020-01-04 12:13] LABS: Hematocrit 27.8 % (35.5-45.6); Hemoglobin 8.2 gm/dl (11.8-15.2)
[2020-01-04 12:40] LABS: Calcium 9.5 mg/dL (8.4-10.2)
[2020-01-04] MEDS: POLYETHYLENE GLYCOL 3350 17 GM POWDER PO SCH (22:04)
[2020-01-05] MEDS: fentaNYL DRIP Premix 2,000 MCG/100 ML BAG IV SCH ×4 (00:16→23:01)
[2020-01-05] MEDS: INSULIN LISPRO 100 UNIT/ML SUB-Q SCH ×6 (03:07→23:22)
[2020-01-05] MEDS: DOPamine/D5W 800 MG/250 ML 800 MG/250 ML BAG IV SCH ×3 (03:39→23:02)
[2020-01-05 04:54] LABS: ABG HCO3 30.5 mmol/L (20.0-26.0); ABG Methemoglobin 0.4 % (0.0-1.5); ABG Oxygen Saturation 98.2 % (95.0-99.0); ABG PCO2 44.5 mm Hg; ABG PH 7.454 pH Units (7.350-7.450)
[2020-01-05] MEDS: LEVOTHYROXINE 88 MCG TAB PO SCH (05:09)
[2020-01-05 05:10] LABS: Hematocrit 26.9 % (35.5-45.6); Hemoglobin 8.4 gm/dl (11.8-15.2); Mean Corpuscular HGB Conc 31 % (32-34); Mean Corpuscular Volume 78 fl (84-94); Platelet Count 430 K/mm3 (140-440); Red Blood Count 3.46 M/mm3 (3.65-5.03)
[2020-01-05 05:25] LABS: Calcium 9.9 mg/dL (8.4-10.2)
--- NOTE | 2020-01-05 07:29 | Progress Note ---
Assessment and Plan Assessment and plan: 59-year-old male past medical history diastolic CHF, OHS, HTN, DM 2, hypothyroidism admitted with confusion after being found by a neighbor. On arrival patient was found to be lethargic, and in respiratory distress and hypoxic. Patient was intubated in the ER because of hypoxic respiratory failure. Also noted to be hypotensive, placed on pressor admitted to ICU. Patient is negative for COVID-19, being treated for bilateral pneumonia. JAGDEEP improved with IV fluid, ID and critical care following. Chest x-ray: Left lower lobe airspace disease CT chest: 1. Patchy bilateral nodular and consolidative airspace opacities which are nonspecific but likely related to the reported history of Covid. 2. Multiple enlarged partially visualized left supraclavicular and lower cervical chain lymph nodes. While these are nonspecific and may be reactive, a neoplastic process is possible, recommend short interval follow-up after patient recovers from the acute episode. / Acute hypoxic respiratory failure Likely from bilateral pneumonia and diastolic heart failure Patient intubated, placed on ventilatory support. critical care team consulted in ED. Patient is extubated, continue nebulizer breathing treatment and as needed biPAP We will also do a swallow eval / Sepsis with shock cont IV antibiotic therapy, IV fluid resuscitation therapy, monitor urine output every shift, maintain mean arterial blood pressure greater than or equal to 65, s/p IV pressor support. / Suspected 2019-nCoV infection -ruled out with 2 negative test / Diastolic CHF Preserved EF based on prior echocardiogram Monitor weight strict I's/O, daily weight, monitor urine output every shift, submental oxygen, blood pressure control. /JAGDEEP, due to vasomotor nephropathy, present on admission -Creatinine improving, -Likely due to severe sepsis and hypotension /hypernatremia, -due to dehydration and sepsis -change fluid to D5W - monitor BMP /Hypokalemia, replete / Diabetes type II Initiate tube feeding diet Sliding scale insulin, Accu-Chek, hypoglycemia protocol. / Hypothyroidism Synthroid therapy, supportive care. / Bilateral pneumonia Pneumonia protocol: IV antibiotic therapy with rocephin for total 7 days, pulse oximetry, /Cervical lymphadenopathy -Reactive versus infectious process versus malignancy -Need repeat scanning and further staging when medically more stable -Pulmonology and ID following /Ileus: Hold tube feeds / HTN (hypertension) -hold BP meds as patient is hypotensive Monitor blood pressure every shift, continue medical management. /History of obstructive sleep apnea -Patient currently on mechanical ventilation /Acute metabolic encephalopathy Secondary to hyponatremia. /Urinary retention, suspected in the ER -Patient having good urine output now, will hold any CT scan -Continue IV fluid / DVT prophylaxis SCD to bilateral lower extremities while in bed, prophylactic heparin 12/19/19: Negative for COVID-19, continue pressor and wean off as tolerated, continue IV antibiotic and follow cultures. 12/19: Weaned off from pressor, sodium 156>157>153 today, creatinine 1.4>1.2>1.0. Continue IV fluid. Wean off from vent as tolerated. Follow ID recommendation 12/20: Extubated today, continue to monitor in the ICU overnight if clinically stable with transfer out to [facility]/telemetry tomorrow a.m.. Sodium 149 today, continue IV fluid and monitor BMP. Swallow eval, PT OT eval. 2nd text for covid is negative 12/21: transfer to [facility], start on gentle hydration. mechanical soft diet 12/22: placed back on bipap, Na 163 - start on D5W, monitor bmp 12/23: spoke to sister, updated [id number], also discussed Pulmonary, will likely need LTAC. Obtain Nephrology due to persistent Hypernatremia. Will start on free water and continue to monitor. Remains of restriants for safety due to intermittent confusion. 12/24: Still with intermittent encephalopathy. Requiring restraints. Hypernatremia still persist continue hypotonic solution. Nephrology consulted. Free water started this morning will increase dose. Replace potassium as hypokalemia still persist 12/26/19: Clinically improving, BIPAP now PRN AND HS, Na improving, continue renal follow up. I have called [facility] in case they would like to transfer the patient tested previously requested. 12/26: Hypernatermia still persist, had pulled out NGT yesterday, Continue free water, Continue Bipap, [place] states he is not yet stable for transfer. Although from our critical care team this patient has been cleared for to be able to transfer. 12/27: Patient reintubated due to hypoxia. Continue current management as outlined by dopeman. Sodium is improving. Continue current management monitor ABG and intermittent chest x-ray. [facility] updated. Patient sister also updated. 12/28: Sepsis persist. Antibiotics adjusted.-start linezolid 600 mg IV q 12 hour. Will adjust insulin for better management of blood glucose. 12/29: Shock still persist Levophed adjusted upward. [place] advised patient not safe for travel at this time. Continue ventilatory support continue full support antibiotics adjusted by ID. Follow cultures 12/30: Still on the vent and pressors , Isolation secondary MRSA In sputum. 12/31: Continue current management, will need intermittent chest xray, adjust insulin For better blood glucose control. Check labs in am 01/01: KUB reviewed shows distended bowel with no no specific obstruction noted. We will hold tube feeds at this time place NG tube to low intermittent suction. Repeat chest x-ray in a.m. Hyponatremia is better kidney function appears to be improving continue to monitor. 01/02: Continue feeding tube to low intermittent suction over 500 residual came out in the last 16+ hours. Repeat blood culture per ID. Continue antibiotics. We will obtain the CT abdomen and pelvis without contrast as renal function is mildly increased today. Prognosis is guarded repeat imaging concerning for colon distention. Will defer to critical care if the fecal management system should be placed. 01/03: CT A/P and chest. IMPRESSION: 1. Predominantly dependent bilateral consolidative and groundglass changes throughout both lungs have worsened since the prior. There is a new small left pleural effusion as well. These findings could be seen in the setting of pulmonary edema with associated superimposed infectious process. There is no cardiomegaly. 2. Left cervical/supraclavicular adenopathy appears slightly increased. This is nonspecific. However, there are shoddy nodes throughout the retroperitoneum and within the pelvis, and the spleen is mildly enlarged. Taken together, these findings are concerning for lymphoproliferative process such as lymphoma. - Ultrasound guided Biopsy, also send peripheral smear. US guided biopsy ordered - add a second pressors 01/04: Awaiting biopsy, continue supportive care, Sodium stable and improving. Espinoza torre undergoing bronchoscopy today. The high probability of a clinically significant, sudden or life threatening deterioration of the [renal, pulmonary] system(s) required my full and direct attention, intervention and personal management. The aggregate critical care michael e was [35] minutes. This time is in addition to time spent performing reported procedures but includes the following: [x] Data Review and interpretation [x] Patient assessment and monitoring of vital signs [x] Documentation [x] Medication orders and management History Interval history: Patient seen and examined, still on full ventilatory support, no clinical change at this time. Remains on pressors Hospitalist Physical - Physical exam Narrative exam: GENERAL: well-developed obese white male lying on bed on restraints due to confusion and pulling. ETT HEENT: Normocephalic. Atraumatic. No conjunctival congestion or icterus. Patient has moist mucous membranes. ETT NECK: Supple. Trachea midline. CHEST/LUNGS: Coarse breath sound auscultated bilaterally, HEART/CARDIOVASCULAR: Regular in rate and rhythm. S1 and S2 positive. ABDOMEN: Abdomen is soft, distended nontender. Patient has normal bowel sounds. SKIN: There is no rash. Warm and dry. NEURO: follows some command, AMS, no focal deficits MUSCULOSKELETAL: No joint effusion or tenderness. EXTRIMITY: No edema, no cyanosis or clubbing. PSYCH: Sedated - Constitutional Vitals: Temp Pulse Resp BP Pulse Ox 98.9 F 71 15 105/60 98 01/05/20 04:00 01/05/20 06:30 01/05/20 06:30 01/05/20 06:30 01/05/20 06:30 General appearance: Present: severe distress HEART Score - HEART Score Troponin: Troponin T 0.011 ng/mL (0.00-0.029) 12/18/19 14:45 Results - Labs CBC & Chem 7: 01/06/20 04:58 01/06/20 04:58 Labs: Laboratory Last Values WBC 8.0 K/mm3 (4.5-11.0) 01/05/20 03:36 RBC 3.46 M/mm3 (3.65-5.03) L 01/05/20 03:36 Hgb 8.4 gm/dl (11.8-15.2) L 01/05/20 03:36 Hct 26.9 % (35.5-45.6) L 01/05/20 03:36 MCV 78 fl (84-94) L 01/05/20 03:36 MCH 24 pg (28-32) L 01/05/20 03:36 MCHC 31 % (32-34) L 01/05/20 03:36 RDW 19.0 % (13.2-15.2) H 01/05/20 03:36 Plt Count 430 K/mm3 (140-440) 01/05/20 03:36 Lymph % (Auto) 19.9 % (13.4-35.0) 01/02/20 05:00 Lee % (Auto) 9.4 % (0.0-7.3) H 01/02/20 05:00 Eos % (Auto) 11.2 % (0.0-4.3) H 01/02/20 05:00 Baso % (Auto) 0.8 % (0.0-1.8) 01/02/20 05:00 Lymph # 1.4 K/mm3 (1.2-5.4) 01/02/20 05:00 Lee # 0.7 K/mm3 (0.0-0.8) 01/02/20 05:00 Eos # 0.8 K/mm3 (0.0-0.4) H 01/02/20 05:00 Baso # 0.1 K/mm3 (0.0-0.1) 01/02/20 05:00 Add Manual Diff Complete 12/24/19 04:53 Total Counted 100 12/24/19 04:53 Seg Neutrophils % 58.7 % (40.0-70.0) 01/02/20 05:00 Seg Neuts % (Manual) 60.0 % (40.0-70.0) 12/24/19 04:53 Band Neutrophils % 0 % 12/24/19 04:53 Lymphocytes % (Manual) 20.0 % (13.4-35.0) 12/24/19 04:53 Reactive Lymphs % (Man) 0 % 12/24/19 04:53 Monocytes % (Manual) 15.0 % (0.0-7.3) H 12/24/19 04:53 Eosinophils % (Manual) 4.0 % (0.0-4.3) 12/24/19 04:53 Basophils % (Manual) 0 % (0.0-1.8) 12/24/19 04:53 Metamyelocytes % 1.0 % 12/24/19 04:53 Myelocytes % 0 % 12/24/19 04:53 Promyelocytes % 0 % 12/24/19 04:53 Blast Cells % 0 % 12/24/19 04:53 Nucleated RBC % Not Reportable 12/24/19 04:53 Seg Neutrophils # 4.0 K/mm3 (1.8-7.7) 01/02/20 05:00 Seg Neutrophils # Man 3.5 K/mm3 (1.8-7.7) 12/24/19 04:53 Band Neutrophils # 0.0 K/mm3 12/24/19 04:53 Lymphocytes # (Manual) 1.2 K/mm3 (1.2-5.4) 12/24/19 04:53 Abs React Lymphs (Man) 0.0 K/mm3 12/24/19 04:53 Monocytes # (Manual) 0.9 K/mm3 (0.0-0.8) H 12/24/19 04:53 Eosinophils # (Manual) 0.2 K/mm3 (0.0-0.4) 12/24/19 04:53 Basophils # (Manual) 0.0 K/mm3 (0.0-0.1) 12/24/19 04:53 Metamyelocytes # 0.1 K/mm3 12/24/19 04:53 Myelocytes # 0.0 K/mm3 12/24/19 04:53 Promyelocytes # 0.0 K/mm3 12/24/19 04:53 Blast Cells # 0.0 K/mm3 12/24/19 04:53 WBC Morphology Not Reportable 12/24/19 04:53 Hypersegmented Neuts Not Reportable 12/24/19 04:53 Hyposegmented Neuts Not Reportable 12/24/19 04:53 Hypogranular Neuts Not Reportable 12/24/19 04:53 Smudge Cells Not Reportable 12/24/19 04:53 Toxic Granulation Not Reportable 12/24/19 04:53 Toxic Vacuolation Not Reportable 12/24/19 04:53 Dohle Bodies Not Reportable 12/24/19 04:53 Pelger-Huet Anomaly Not Reportable 12/24/19 04:53 Mervin Rods Not Reportable 12/24/19 04:53 Platelet Estimate Consistent w auto 12/24/19 04:53 Clumped Platelets Not Reportable 12/24/19 04:53 Plt Clumps, EDTA Not Reportable 12/24/19 04:53 Large Platelets Not Reportable 12/24/19 04:53 Giant Platelets Not Reportable 12/24/19 04:53 Platelet Satelliting Not Reportable 12/24/19 04:53 Plt Morphology Comment Not Reportable 12/24/19 04:53 RBC Morphology Not Reportable 12/24/19 04:53 Dimorphic RBCs Not Reportable 12/24/19 04:53 Polychromasia Rare 12/24/19 04:53 Hypochromasia 1+ 12/24/19 04:53 Poikilocytosis Not Reportable 12/24/19 04:53 Anisocytosis 1+ 12/24/19 04:53 Microcytosis Few 12/24/19 04:53 Macrocytosis Not Reportable 12/24/19 04:53 Spherocytes Not Reportable 12/24/19 04:53 Pappenheimer Bodies Not Reportable 12/24/19 04:53 Sickle Cells Not Reportable 12/24/19 04:53 Target Cells Not Reportable 12/24/19 04:53 Tear Drop Cells Not Reportable 12/24/19 04:53 Ovalocytes Few 12/24/19 04:53 Helmet Cells Not Reportable 12/24/19 04:53 Brink-Eugenio Saenz Bodies Not Reportable 12/24/19 04:53 [place] Rings Not Reportable 12/24/19 04:53 Lima Cells Not Reportable 12/24/19 04:53 Bite Cells Not Reportable 12/24/19 04:53 Crenated Cell Not Reportable 12/24/19 04:53 Elliptocytes Not Reportable 12/24/19 04:53 Acanthocytes (Spur) Not Reportable 12/24/19 04:53 Rouleaux Not Reportable 12/24/19 04:53 Hemoglobin C Crystals Not Reportable 12/24/19 04:53 Schistocytes Not Reportable 12/24/19 04:53 Malaria parasites Not Reportable 12/24/19 04:53 Gianni Bodies Not Reportable 12/24/19 04:53 Hem Pathologist Commnt No 12/24/19 04:53 PT 14.0 Sec. (12.2-14.9) 12/18/19 14:45 INR 1.10 (0.87-1.13) 12/18/19 14:45 APTT 29.4 Sec. (24.2-36.6) 12/18/19 14:45 D-Dimer 534.45 ng/mlDDU (0-234) H 12/18/19 14:45 ABG pH 7.454 pH Units (7.350-7.450) H 01/05/20 03:31 ABG pCO2 44.5 mm Hg 01/05/20 03:31 ABG pO2 113.0 mm Hg (80.0-90.0) H 01/05/20 03:31 ABG HCO3 30.5 mmol/L (20.0-26.0) H 01/05/20 03:31 ABG O2 Saturation 98.2 % (95.0-99.0) 01/05/20 03:31 ABG O2 Content 11.7 (0.0-44) 01/05/20 03:31 ABG Base Excess 6.0 mmol/L (-2.0-3.0) H 01/05/20 03:31 ABG Hemoglobin 8.5 gm/dl (14.0-18.0) L 01/05/20 03:31 ABG Carboxyhemoglobin 1.9 % (0.0-5.0) 01/05/20 03:31 ABG Methemoglobin 0.4 % (0.0-1.5) 01/05/20 03:31 Oxyhemoglobin 95.9 % (95.0-99.0) 01/05/20 03:31 FiO2 50 % 01/05/20 03:31 Sodium 150 mmol/L (137-145) H 01/05/20 03:36 Potassium 3.8 mmol/L (3.6-5.0) 01/05/20 03:36 Chloride 110.3 mmol/L (98-107) H 01/05/20 03:36 Carbon Dioxide 30 mmol/L (22-30) 01/05/20 03:36 Anion Gap 14 mmol/L 01/05/20 03:36 BUN 30 mg/dL (9-20) H 01/05/20 03:36 Creatinine 1.5 mg/dL (0.8-1.5) 01/05/20 03:36 Estimated GFR 58 ml/min 01/05/20 03:36 BUN/Creatinine Ratio 20 % 01/05/20 03:36 Glucose 148 mg/dL (75-100) H 01/05/20 03:36 POC Glucose 142 (70-105) H 01/05/20 05:21 Lactic Acid 1.70 mmol/L (0.7-2.0) 12/30/19 05:06 Calcium 9.9 mg/dL (8.4-10.2) 01/05/20 03:36 Phosphorus 3.70 mg/dL (2.5-4.5) 12/27/19 03:48 Magnesium 2.60 mg/dL (1.7-2.3) H 12/30/19 05:06 Ferritin 83.4 ng/mL (13.0-400.0) 12/18/19 14:45 Total Bilirubin 0.30 mg/dL (0.1-1.2) 12/19/19 04:13 AST 85 units/L (5-40) H 12/19/19 04:13 ALT 61 units/L (7-56) H 12/19/19 04:13 Alkaline Phosphatase 80 units/L (35-129) 12/19/19 04:13 Ammonia 39.0 umol/L (25-60) 12/18/19 14:45 Lactate Dehydrogenase 235 units/L (91-180) H 12/18/19 14:45 Lactate Dehydrogenase 236 units/L (91-180) H 12/18/19 14:45 Total Creatine Kinase 40 units/L (55-170) L 12/18/19 14:45 Troponin T 0.011 ng/mL (0.00-0.029) 12/18/19 14:45 C-Reactive Protein 8.40 mg/dL (0.00-1.30) H 12/18/19 14:45 C-Reactive Protein 8.50 mg/dL (0.00-1.30) H 12/18/19 14:45 Total Protein 6.8 g/dL (6.3-8.2) 12/19/19 04:13 Albumin 3.0 g/dL (3.9-5) L 12/19/19 04:13 Albumin/Globulin Ratio 0.8 % 12/19/19 04:13 Procalcitonin 0.22 ng/mL (<0.15) 12/18/19 14:45 TSH 2.300 mlU/mL (0.270-4.200) 12/18/19 14:45 Urine Color Yellow (Yellow) 12/19/19 16:50 Urine Turbidity Clear (Clear) 12/19/19 16:50 Urine pH 5.0 (5.0-7.0) 12/19/19 16:50 Ur Specific [place] 1.010 (1.003-1.030) 12/19/19 16:50 Urine Protein <15 mg/dl mg/dL (Negative) 12/19/19 16:50 Urine Glucose (UA) 150 mg/dL (Negative) 12/19/19 16:50 Urine Ketones Neg mg/dL (Negative) 12/19/19 16:50 Urine Blood Neg (Negative) 12/19/19 16:50 Urine Nitrite Neg (Negative) 12/19/19 16:50 Urine Bilirubin Neg (Negative) 12/19/19 16:50 Urine Urobilinogen < 2.0 mg/dL (<2.0) 12/19/19 16:50 Ur Leukocyte Esterase Tr (Negative) 12/19/19 16:50 Urine WBC (Auto) 7.0 /HPF (0.0-6.0) H 12/19/19 16:50 Urine RBC (Auto) 4.0 /HPF (0.0-6.0) 12/19/19 16:50 U Epithel Cells (Auto) 1.0 /HPF (0-13.0) 12/19/19 16:50 Urine Bacteria (Auto) 1+ /HPF (Negative) 12/19/19 16:50 Urine Mucus Few /HPF 12/19/19 16:50 Urine Osmolality 140 Mosm/kg 12/25/19 16:45 Urine Creatinine < 4.2 mg/dL (0.1-20.0) 12/25/19 16:45 Urine Sodium 10 mmol/L 12/25/19 16:45 Urine Total Protein < 4 mg/dL (5-11.8) L 12/25/19 16:45 Digoxin 0.3 ng/mL (0.9-2.0) L 12/18/19 14:45 Salicylates < 0.3 mg/dL (2.8-20.0) L 12/18/19 14:45 Acetaminophen < 5.0 ug/mL (10.0-30.0) L 12/18/19 14:45 Plasma/Serum Alcohol < 0.01 % (0-0.07) 12/18/19 14:45 Coronavirus (PCR) Negative (Negative) 06/16/20 14:45 Blood Type A POSITIVE 12/18/19 14:45 Antibody Screen Negative 12/18/19 14:45 - Diagnostic Impressions Diagnostic Impressions: Echocardiogram 12/28/19 14:07 Transthoracic Echocardiogram Indication: SOB BP: 95/51 HR: 99 Conclusions *The left ventricular chamber size is mildly dilated. *There is no left ventricular hypertrophy. *Global left ventricular systolic function is mildly decreased. *The estimated ejection fraction is 45-50%. *Abnormal left ventricular diastolic filling is observed, consistent with impaired relaxation. *The right ventricular global systolic function is mildly reduced. *The right ventricular systolic pressure is calculated at 53 mmHg. Findings Left Ventricle: The left ventricular chamber size is mildly dilated. There is no left ventricular hypertrophy. Global left ventricular systolic function is mildly decreased. The estimated ejection fraction is 45-50%. Abnormal left ventricular diastolic filling is observed, consistent with impaired relaxation. Left Atrium: The left atrial chamber size is normal. Right Ventricle: The right ventricular cavity size is normal. The right ventricular global systolic function is mildly reduced. Right Atrium: The right atrial cavity size is normal. Aortic Valve: The aortic valve leaflets are mildly thickened. There is no evidence of aortic regurgitation. Mitral Valve: The mitral valve leaflets are mildly thickened. There is no evidence of mitral regurgitation. Tricuspid Valve: The tricuspid valve leaflets are normal. There is mild tricuspid regurgitation. The right ventricular systolic pressure is calculated at 53 mmHg. Pulmonic Valve: The pulmonic valve appears normal. There is trace pulmonic regurgitation. Pericardium: There is no pericardial effusion. Aorta: The aorta appears normal. Venous: The inferior vena cava is dilated. Measurements Chambers 2D Name Value Normal Range IVSd (2D) 1.08 cm (0.6 - 1.1) LVPWd (2D) 1 cm (0.6 - 1.1) LVIDd (2D) 4.67 cm (3.7 - 5.6) LVIDs (2D) 3.89 cm (2 - 3.8) LV FS (2D) 16.76 % - EF Teichholz (2D) 35.14 % - Ao root diameter (2D) 2.86 cm (2 - 3.7) Volumes/Mass Name Value Normal Range LA ESV SP 4CH (A/L) 31.8 ml - LA ESV SP 2CH (A/L) 27.37 ml - LA ESV BP (A/L) 33.43 ml - LA ESV BP (A/L) index 14.11 ml/m2 - LA ESV SP 4CH (MOD) 26.83 ml - LA ESV SP 2CH (MOD) 29.59 ml - LA ESV BP (MOD) 30.47 ml - LA ESV BP (MOD) index 12.86 ml/m2 - Diastolic/Systolic Function Name Value Normal Range MV E-wave Vmax 0.39 m/sec - MV deceleration time 115.69 msec - MV A-wave Vmax 0.63 m/sec - MV E:A ratio 0.62 ratio - Aortic Valve Name Value Normal Range AV Vmax 1.14 m/sec - AV VTI 20.1 cm - AV peak gradient 5.17 mmHg - AV mean gradient 3.89 mmHg - LVOT diameter 2.02 cm - LVOT Vmax 0.99 m/sec - LVOT VTI 16.45 cm - LVOT peak gradient 3.95 mmHg - LVOT mean gradient 2.45 mmHg - SV LVOT 52.45 ml - RALPH (continuity Vmax) 2.78 cm2 - RALPH (continuity VTI) 2.61 cm2 - Tricuspid Valve Name Value Normal Range TR Vmax 3.36 m/sec - TR peak gradient 45 mmHg - RAP 8 mmHg - RVSP 53 mmHg - IVC diameter 2.33 cm (1.2 - 2.3) Pulmonic Valve/Qp:Qs Name Value Normal Range PV Vmax 0.89 m/sec - PV peak gradient 3.16 mmHg - MO end-diastolic Vmax 1.42 m/sec - PV acceleration time 79.92 msec - Sykes/IV: Voiding Method Condom Catheter IV Catheter Type [Right Upper PICC Line arm] IV Catheter Type [Right Leg] Intra-osseous IV Catheter Type [Right Wrist] Peripheral IV IV Catheter Type [Right Hand] INT / Saline Lock IV Catheter Type [Left Hand] INT / Saline Lock IV Catheter Type [Left Forearm INT / Saline Lock ] IV Catheter Type [Left Triple Lumen Cath Internal Jugular] Active Medications - Current Medications Current Medications: Generic Name Dose Route Start Last Admin Trade Name Freq PRN Reason Stop Dose Admin Acetaminophen 650 mg 12/29/19 09:21 01/03/20 18:31 Tylenol PO 650 mg Q4H PRN Administration Non Cardiac Pain or Temp>100.5 Albuterol/Ipratropium 1 ampul 12/18/19 14:00 01/04/20 20:54 Duoneb *Not For Prn Use* IH 1 ampul TIDRT SHANEL Administration Lipase/Protease/Amylase 1 each 12/19/19 08:29 Pancrecorry Cabrera 10,500 Unit FEEDTUBE PRN PRN For Clogged Feeding Tube Aspirin 81 mg 12/19/19 10:00 01/04/20 09:17 Baby Aspirin PO 81 mg DAILY SHANEL Administration Bisacodyl 10 mg 01/02/20 15:48 01/02/20 18:25 Dulcolax MO 10 mg QDAY PRN Administration Constipation Docusate Sodium 100 mg 01/01/20 22:00 01/04/20 22:05 Colace PO 100 mg BID SHANEL Administration Famotidine 20 mg 12/20/19 10:00 01/04/20 22:04 Pepcid PO 20 mg BID SHANEL Administration Fentanyl 50 mcg 12/27/19 16:57 Sublimaze IV Q10MIN PRN ANALGESIA Folic Acid 1 mg 12/19/19 10:00 01/04/20 09:17 Folvite PO 1 mg DAILY SHANEL Administration Heparin Sodium (Porcine) 5,000 unit 12/18/19 22:00 01/04/20 22:05 Heparin SUB-Q 5,000 unit Q12HR SHANEL Administration Hydrophilic Ointment 1 applic 12/18/19 12:35 Vaseline Lip Therapy TP Q2HR PRN Dry Lips Fentanyl Citrate 2,000 mcg in 100 mls @ 5.85 mls/hr 12/27/19 17:00 01/05/20 06:48 Fentanyl Drip Premix IV 2 mcg/kg/hr TITR SHANEL 11.7 mls/hr Titration Protocol 1 MCG/KG/HR Norepinephrine 4 mg in 250 mls @ 7.5 mls/hr 12/28/19 15:00 12/31/19 18:12 Levophed Drip 4 Mg/Ns 250 Ml IV 0 mcg/min TITR SHANEL 0 mls/hr Titration Protocol 2 MCG/MIN Linezolid 600 mg in 300 mls @ 300 mls/hr 12/29/19 15:00 01/04/20 22:04 Zyvox 600mg/300ml IV 01/07/20 22:59 300 mls/hr Q12HR SHANEL Administration Protocol Vasopressin 20 unit/ Sodium 101 mls @ 9.09 mls/hr 12/30/19 12:30 01/01/20 13:44 Chloride IV 0 units/min TITR SHANEL 0 mls/hr Titration Protocol 0.03 UNITS/MIN Dopamine HCl/Dextrose 800 mg in 250 mls @ 4.388 mls/hr 12/31/19 16:00 01/05/20 03:39 Intropin Drip 800 Mg/D5w 250 Ml IV 16 mcg/kg/min TITR SHANEL 35.1 mls/hr Administration Protocol 2 MCG/KG/MIN Dextrose/Sodium Chloride 1,000 mls @ 75 mls/hr 01/03/20 10:00 01/04/20 22:36 D5ns 0.2% IV 75 mls/hr DIRECT SHANEL Administration Cefepime HCl 2 gm in 100 mls @ 200 mls/hr 01/04/20 10:00 01/04/20 22:11 Cefepime/Ns 2 Gm/100 Ml IV 01/05/20 23:59 200 mls/hr Q12H SHANEL Administration Protocol Fluconazole 200 mg in 100 mls @ 100 mls/hr 01/04/20 10:00 01/04/20 09:21 Diflucan IV 01/05/20 10:59 100 mls/hr Q24H SHANEL Administration Protocol Insulin Glargine 35 units 01/01/20 22:00 01/04/20 22:05 Lantus SUB-Q 35 units QHS SHANEL Administration Insulin Glargine 35 units 01/01/20 11:00 01/04/20 08:06 Lantus SUB-Q 35 units QAMDIAB SHANEL Administration Insulin Human Lispro 0 unit 12/31/19 14:00 01/05/20 06:40 Humalog SUB-Q Not Given Q4HR [facility] Protocol Levothyroxine Sodium 88 mcg 12/19/19 06:00 01/05/20 05:09 Synthroid PO 88 mcg QAM@0600 SHANEL Administration Multi-Ingred Cream/Lotion/Oil/Oint 1 applic 12/18/19 12:35 Artificial Tears Ophth Oint OU Q4HR PRN Dry Eye(s) Polyethylene Glycol 17 gm 01/01/20 22:00 01/04/20 22:04 Miralax 3350 PO 17 gm QHS SHANEL Administration Potassium Chloride 40 meq 12/29/19 10:00 01/04/20 09:15 Potassium Chloride FEEDTUBE 40 meq QDAY SHANEL Administration Simple Syrup 15 ml 12/19/19 08:29 Simple Syrup FEEDTUBE PRN PRN Hypoglycemia Simple Syrup 30 ml 12/19/19 08:29 Simple Syrup FEEDTUBE PRN PRN Hypoglycemia Sodium Bicarbonate 325 mg 12/19/19 08:29 Sodium Bicarbonate FEEDTUBE PRN PRN For Clogged Feeding Tube Sodium Chloride 10 ml 12/18/19 22:00 01/04/20 22:05 Sodium Chloride Flush Syringe 10 Ml IV 10 ml BID SHANEL Administration Sodium Chloride 10 ml 12/18/19 13:31 Sodium Chloride Flush Syringe 10 Ml IV PRN PRN LINE FLUSH Nutrition/Malnutrition Assess - Dietary Evaluation Nutrition/Malnutrition Findings: Nutrition Notes Start: 12/19/19 08:16 Freq: Status: Active Protocol: Document 01/04/20 11:08 LP (Rec: 01/04/20 11:16 LP [email or web address]) Nutrition Notes Initial or Follow up Reassessment Current Diagnosis Diabetes,Sepsis,Hypertension, Heart Failure,Respiratory Failure Other Pertinent Diagnosis Suspected COVID-19, pneu Current Diet Vital AF 1.2 at 65ml/hr Labs/Tests 01/03/20 Na 151 Pertinent Medications Reviewed Height 6 ft 2 in Weight 117 kg [place] Body Weight (kg) 86.36 BMI 33.1 Weight Status Obese Subjective/Other Information Pt currently on trophic feeds. Burn Absent Trauma Absent Current % PO Negligible Minimum of two criteria No physical signs of malnutrition #1 Nutrition Diagnosis Inadequate oral intake Diagnosis Progress(for reassessment Continues documentation) Is patient on ventilator? Yes Is Patient Ambulatory and/or Out of Bed No REE-([facility]-confined to bed) 2469.960 Kcal/Kg value to use for calculation 17 Approximate Energy Requirements Using 1989 kcal/Kg Calculation Used for Recommendations Kcal/kg Additional Notes Protein: 172g (>/=2g/kg using IBW 86kg) Fluid 1ml/kcal Nutrition Intervention Change Diet Order: TF Nutrition Support: Vital AF 1.2 at 65ml/hr Flush 300ml q4h for hypernatremia Flush 100ml q4h once resolved Kcal 1,872 Protein (gm) 117 Fluid (mL) 1,265 Goal #1 TF tolerance Goal #2 Meet at least 75% of energy and protein needs Anticipated Discharge Needs: unable to determine at this time Follow-Up By: 01/06/20 Additional Comments Follow for TF tolerance at goal rate
[2020-01-05] MEDS: INSULIN GLARGINE 100 UNITS/ML SUB-Q SCH ×2 (08:44→22:29)
--- NOTE | 2020-01-05 08:49 | Progress Note ---
Assessment and Plan Acute Hypoxemic Respiratory Failure Severe Sepsis with Shock Bilateral Pneumonia JAGDEEP secondary to ATN, non oliguric Hypernatremia Morbid Obesity H/O CHF JOE -Bronchoscopy today to obtain samples for cultures CT shows persitent dense bilateral lower lobe consolidations Procedure was discussed with the patient's sisters. The risks, benefits, alternatives and indications for bronchoscopy were discussed. They both verbalized understanding and all their questions were answered. They gave consent for the procedure. I also updated them re patient condition and care plan. I also discussed the probable need for tracheostomy and PEG - wean vasopressors for MAP > 65 mmHg -Change D5 1/4Nsaline to D5 Water for hypernatremia, get BMP in am -CT chest, abdomen and pelvis without contrast, on going sepsis with hypotesnion -Antibiotics (Cefepime, Linezolid); antifungal( Fluconazole) per ID- de-escalate as indicated -Trophic feeding with bowel regimen. Plan to advance feeding as tolerated -Avoid nephrotoxins and dose all medications for GFR and CrCL -Discussed with ID and primary Attending re care plan -Discussed with RT, RN, clinical pharmacist and RD during interdisciplinary rounds - Daily SAT and SBT assessment as tolerated - accuchecks with glycemic control per SSI (While critically ill target blood glucose of 140-180 mg/dL; avoid hypoglycemia) - sedation for target RASS 0 to -1 - continue to wean supplemental oxygen for target O2 sats> 92% - continue bronchodilators with pulmonary hygiene per RT - VAP bundle addressed - Lung protective strategies - wean per pulmonary driven protocols - continue to avoid benzodiazepines reduce the possibility of delirium - prn analgesia per CPOT score - Maintenance of sleep-wake cycle - G.I. & VTE prophylaxis( Heparin, Famotidine) - Mobility, off loading and frequent turning to prevent pressure ulcers - continue aspiration precautions, HOB >40 - continue accuchecks with glycemic control per SSI (While critically ill target blood glucose of 140-180 mg/dL; avoid hypoglycemia) - Monitor hemodynamics closely - continue other care per attending / other consultants - discharge planning ongoing concurrently .... Re-evaluate in am & prn CONDITION: CRITICAL PROGNOSIS: GUARDED CODE STATUS: FULL CODE The high probability of a clinically significant, sudden or life-threatening deterioration of the [respiratory, cardiovascular, GI & neurologic] system(s) required my full and direct attention, intervention and personal management. The aggregate critical care time was [33] minutes without overlap. Time includes spent on; [x] Data Review and interpretation [x] Patient assessment and monitoring of vital signs [x] Documentation [x] Medication orders and management Subjective Date of service: 01/05/20 Principal diagnosis: Ac. Hypoxemic Resp Failure; Septic Shock; Magdiel. PNA; PUI COVID-19; CHF; JOE Interval history: Patient is seen today for: Acute Hypoxemic Respiratory Failure; Severe Sepsis with Shock; Bilateral Pneumonia; PUI COVID-19; Morbid Obesity; H/O CHF; JOE Seen and examined at bedside; 24hour events reviewed; nursing and respiratory care staff consulted; no adverse overnight events reported to me; resting peacefully in bed; remains on MVS; FiO2 down to 45% with room to wean; AMS is p ersistent; no emesis or overt aspiration; sputum growing MRSA Continues to require vasopressor support Objective Vital Signs - 12hr 01/04/20 01/04/20 01/04/20 20:54 20:59 21:00 Temperature Pulse Rate 64 64 Pulse Rate [ 110 H Bilateral] Pulse Rate [ From Monitor] Respiratory 24 Rate Respiratory 24 Rate [Bilateral ] Blood Pressure 124/58 121/55 O2 Sat by Pulse 99 99 Oximetry 01/04/20 01/04/20 01/04/20 21:30 22:00 22:04 Temperature Pulse Rate 78 77 77 Pulse Rate [ Bilateral] Pulse Rate [ From Monitor] Respiratory 24 24 24 Rate Respiratory Rate [Bilateral ] Blood Pressure 124/57 125/60 125/60 O2 Sat by Pulse 100 97 98 Oximetry 01/04/20 01/04/20 01/04/20 22:30 23:00 23:30 Temperature Pulse Rate 72 93 H 91 H Pulse Rate [ Bilateral] Pulse Rate [ From Monitor] Respiratory 24 13 22 Rate Respiratory Rate [Bilateral ] Blood Pressure 123/59 120/57 135/72 O2 Sat by Pulse 98 100 97 Oximetry 01/05/20 01/05/20 01/05/20 00:00 00:30 00:34 Temperature 99.0 F Pulse Rate 77 73 64 Pulse Rate [ Bilateral] Pulse Rate [ 79 From Monitor] Respiratory 24 24 Rate Respiratory Rate [Bilateral ] Blood Pressure 131/63 128/55 112/59 O2 Sat by Pulse 98 98 98 Oximetry 01/05/20 01/05/20 01/05/20 01:00 01:30 02:00 Temperature Pulse Rate 58 L 60 67 Pulse Rate [ Bilateral] Pulse Rate [ From Monitor] Respiratory 24 24 18 Rate Respiratory Rate [Bilateral ] Blood Pressure 112/59 127/63 120/59 O2 Sat by Pulse 99 99 99 Oximetry 01/05/20 01/05/20 01/05/20 02:30 03:00 03:30 Temperature Pulse Rate 64 68 87 Pulse Rate [ Bilateral] Pulse Rate [ From Monitor] Respiratory 24 12 13 Rate Respiratory Rate [Bilateral ] Blood Pressure 124/61 123/60 118/63 O2 Sat by Pulse 98 98 97 Oximetry 01/05/20 01/05/20 01/05/20 03:52 03:53 04:00 Temperature 98.9 F 98.9 F Pulse Rate 59 L 71 Pulse Rate [ Bilateral] Pulse Rate [ 79 From Monitor] Respiratory 16 14 Rate Respiratory Rate [Bilateral ] Blood Pressure 121/57 O2 Sat by Pulse 100 99 Oximetry 01/05/20 01/05/20 01/05/20 04:30 04:48 05:00 Temperature Pulse Rate 64 63 87 Pulse Rate [ Bilateral] Pulse Rate [ From Monitor] Respiratory 13 16 Rate Respiratory Rate [Bilateral ] Blood Pressure 135/63 125/65 131/68 O2 Sat by Pulse 100 99 96 Oximetry 01/05/20 01/05/20 01/05/20 05:30 06:00 06:30 Temperature Pulse Rate 65 108 H 71 Pulse Rate [ Bilateral] Pulse Rate [ From Monitor] Respiratory 24 21 15 Rate Respiratory Rate [Bilateral ] Blood Pressure 119/53 115/85 105/60 O2 Sat by Pulse 99 98 98 Oximetry 01/05/20 01/05/20 01/05/20 07:00 07:30 07:58 Temperature 98.7 F Pulse Rate 66 61 Pulse Rate [ Bilateral] Pulse Rate [ From Monitor] Respiratory 24 24 Rate Respiratory Rate [Bilateral ] Blood Pressure 118/57 114/57 O2 Sat by Pulse 99 99 Oximetry 01/05/20 08:00 Temperature Pulse Rate 61 Pulse Rate [ Bilateral] Pulse Rate [ From Monitor] Respiratory 24 Rate Respiratory Rate [Bilateral ] Blood Pressure 112/55 O2 Sat by Pulse 100 Oximetry Constitutional: no acute distress, other (Obese AAM with mildly increrased respiratory effort at rest on MVS) Eyes: non-icteric ENT: oropharynx moist, other (ETT 24 cm KOLBY) Neck: supple, no lymphadenopathy, no JVD Effort: mildly labored Ascultation: Bilateral: diminished breath sounds, rhonchi Percussion: Bilateral: not dull Cardiovascular: regular rate and rhythm, other (S1,S2) Gastrointestinal: normoactive bowel sounds, soft, non-tender, other (distended, soft) Integumentary: rash (stasis dermatyitis) Extremities: no cyanosis, pink and warm, pulses normal, no ischemia or petechiae, edema (trace) Neurologic: pupils equal and round, motor strength normal and, unable to assess, other Psychiatric: other (unable to assess re: AQMS) CBC and BMP: 01/06/20 04:58 01/06/20 04:58 ABG, PT/INR, D-dimer: ABG ABG pH 7.454 pH Units (7.350-7.450) H 01/05/20 03:31 ABG pCO2 44.5 mm Hg 01/05/20 03:31 ABG pO2 113.0 mm Hg (80.0-90.0) H 01/05/20 03:31 ABG O2 Saturation 98.2 % (95.0-99.0) 01/05/20 03:31 PT/INR, D-dimer PT 14.0 Sec. (12.2-14.9) 12/18/19 14:45 INR 1.10 (0.87-1.13) 12/18/19 14:45 D-Dimer 534.45 ng/mlDDU (0-234) H 12/18/19 14:45 Abnormal lab findings: Abnormal Labs 12/18/19 12/18/19 12/18/19 12:23 14:45 14:45 WBC RBC Hgb 10.4 L Hct 35.2 L MCV MCH 25 L MCHC 30 L RDW 18.8 H Lymph % (Auto) [place] % (Auto) 11.6 H Eos % (Auto) 4.8 H Lymph # [place] # 1.0 H Eos # Seg Neutrophils % Monocytes % (Manual) Monocytes # (Manual) D-Dimer ABG pH ABG pO2 ABG HCO3 ABG O2 Saturation ABG Base Excess ABG Hemoglobin Oxyhemoglobin Sodium Potassium Chloride Carbon Dioxide BUN Creatinine Glucose POC Glucose 328 H Lactic Acid Calcium Magnesium AST ALT Lactate Dehydrogenase Total Creatine Kinase 40 L C-Reactive Protein Albumin Urine WBC (Auto) Urine Total Protein Digoxin Salicylates Acetaminophen 12/18/19 12/18/19 12/18/19 14:45 14:45 14:45 WBC RBC Hgb Hct MCV MCH MCHC RDW Lymph % (Auto) [place] % (Auto) Eos % (Auto) Lymph # [place] # Eos # Seg Neutrophils % Monocytes % (Manual) Monocytes # (Manual) D-Dimer 534.45 H ABG pH ABG pO2 ABG HCO3 ABG O2 Saturation ABG Base Excess ABG Hemoglobin Oxyhemoglobin Sodium 156 H Potassium Chloride 112.3 H Carbon Dioxide 31 H BUN 32 H Creatinine Glucose 328 H POC Glucose Lactic Acid Calcium Magnesium AST ALT Lactate Dehydrogenase 235 H Total Creatine Kinase C-Reactive Protein 8.50 H Albumin 3.6 L Urine WBC (Auto) Urine Total Protein Digoxin 0.3 L Salicylates < 0.3 L Acetaminophen 12/18/19 12/18/19 12/18/19 14:45 14:45 16:00 WBC RBC Hgb Hct MCV MCH MCHC RDW Lymph % (Auto) [place] % (Auto) Eos % (Auto) Lymph # [place] # Eos # Seg Neutrophils % Monocytes % (Manual) Monocytes # (Manual) D-Dimer ABG pH ABG pO2 69.8 L ABG HCO3 31.8 H ABG O2 Saturation ABG Base Excess 5.4 H ABG Hemoglobin 10.0 L Oxyhemoglobin 92.9 L Sodium Potassium Chloride Carbon Dioxide BUN Creatinine Glucose 314 H POC Glucose Lactic Acid Calcium Magnesium AST ALT Lactate Dehydrogenase 236 H Total Creatine Kinase C-Reactive Protein 8.40 H Albumin Urine WBC (Auto) Urine Total Protein Digoxin Salicylates Acetaminophen < 5.0 L 12/18/19 12/18/19 12/18/19 16:35 18:30 22:56 WBC RBC Hgb Hct MCV MCH MCHC RDW Lymph % (Auto) [place] % (Auto) Eos % (Auto) Lymph # [place] # Eos # Seg Neutrophils % Monocytes % (Manual) Monocytes # (Manual) D-Dimer ABG pH ABG pO2 ABG HCO3 ABG O2 Saturation ABG Base Excess ABG Hemoglobin Oxyhemoglobin Sodium Potassium Chloride Carbon Dioxide BUN Creatinine Glucose POC Glucose 310 H 353 H Lactic Acid 2.50 H* Calcium Magnesium AST ALT Lactate Dehydrogenase Total Creatine Kinase C-Reactive Protein Albumin Urine WBC (Auto) Urine Total Protein Digoxin Salicylates Acetaminophen 12/19/19 12/19/19 12/19/19 04:13 04:13 06:00 WBC RBC Hgb 10.0 L Hct 34.2 L MCV MCH 25 L MCHC 29 L RDW 19.0 H Lymph % (Auto) [place] % (Auto) 10.1 H Eos % (Auto) Lymph # [place] # 1.1 H Eos # Seg Neutrophils % 71.8 H Monocytes % (Manual) Monocytes # (Manual) D-Dimer ABG pH ABG pO2 186.5 H ABG HCO3 27.8 H ABG O2 Saturation 99.1 H ABG Base Excess ABG Hemoglobin 10.4 L Oxyhemoglobin Sodium 157 H Potassium Chloride 119.1 H Carbon Dioxide BUN 26 H Creatinine Glucose 302 H POC Glucose Lactic Acid Calcium 7.9 L Magnesium AST 85 H ALT 61 H Lactate Dehydrogenase Total Creatine Kinase C-Reactive Protein Albumin 3.0 L Urine WBC (Auto) Urine Total Protein Digoxin Salicylates Acetaminophen 12/19/19 12/19/19 12/19/19 08:30 11:55 16:50 WBC RBC Hgb Hct MCV MCH MCHC RDW Lymph % (Auto) [place] % (Auto) Eos % (Auto) Lymph # [place] # Eos # Seg Neutrophils % Monocytes % (Manual) Monocytes # (Manual) D-Dimer ABG pH ABG pO2 ABG HCO3 ABG O2 Saturation ABG Base Excess ABG Hemoglobin Oxyhemoglobin Sodium Potassium Chloride Carbon Dioxide BUN Creatinine Glucose POC Glucose 264 H 251 H Lactic Acid Calcium Magnesium AST ALT Lactate Dehydrogenase Total Creatine Kinase C-Reactive Protein Albumin Urine WBC (Auto) 7.0 H Urine Total Protein Digoxin Salicylates Acetaminophen 12/19/19 12/19/19 12/20/19 17:41 23:42 03:35 WBC RBC Hgb Hct MCV MCH MCHC RDW Lymph % (Auto) [place] % (Auto) Eos % (Auto) Lymph # [place] # Eos # Seg Neutrophils % Monocytes % (Manual) Monocytes # (Manual) D-Dimer ABG pH ABG pO2 ABG HCO3 27.7 H ABG O2 Saturation ABG Base Excess ABG Hemoglobin 11.6 L Oxyhemoglobin 94.9 L Sodium Potassium Chloride Carbon Dioxide BUN Creatinine Glucose POC Glucose 180 H 205 H Lactic Acid Calcium Magnesium AST ALT Lactate Dehydrogenase Total Creatine Kinase C-Reactive Protein Albumin Urine WBC (Auto) Urine Total Protein Digoxin Salicylates Acetaminophen 12/20/19 12/20/19 12/20/19 04:45 04:45 05:27 WBC RBC Hgb 9.4 L Hct 31.4 L MCV MCH 25 L MCHC 30 L RDW 19.4 H Lymph % (Auto) [place] % (Auto) 10.2 H Eos % (Auto) 6.0 H Lymph # 0.9 L [place] # Eos # Seg Neutrophils % Monocytes % (Manual) Monocytes # (Manual) D-Dimer ABG pH ABG pO2 ABG HCO3 ABG O2 Saturation ABG Base Excess ABG Hemoglobin Oxyhemoglobin Sodium 153 H Potassium Chloride 114.6 H Carbon Dioxide BUN Creatinine Glucose 170 H POC Glucose 188 H Lactic Acid Calcium 7.9 L Magnesium AST ALT Lactate Dehydrogenase Total Creatine Kinase C-Reactive Protein Albumin Urine WBC (Auto) Urine Total Protein Digoxin Salicylates Acetaminophen 12/20/19 12/20/19 12/21/19 12:26 18:20 00:20 WBC RBC Hgb Hct MCV MCH MCHC RDW Lymph % (Auto) [place] % (Auto) Eos % (Auto) Lymph # [place] # Eos # Seg Neutrophils % Monocytes % (Manual) Monocytes # (Manual) D-Dimer ABG pH ABG pO2 ABG HCO3 ABG O2 Saturation ABG Base Excess ABG Hemoglobin Oxyhemoglobin Sodium Potassium Chloride Carbon Dioxide BUN Creatinine Glucose POC Glucose 200 H 263 H 218 H Lactic Acid Calcium Magnesium AST ALT Lactate Dehydrogenase Total Creatine Kinase C-Reactive Protein Albumin Urine WBC (Auto) Urine Total Protein Digoxin Salicylates Acetaminophen 12/21/19 12/21/19 12/21/19 04:38 05:26 12:35 WBC RBC Hgb Hct MCV MCH MCHC RDW Lymph % (Auto) [place] % (Auto) Eos % (Auto) Lymph # [place] # Eos # Seg Neutrophils % Monocytes % (Manual) Monocytes # (Manual) D-Dimer ABG pH ABG pO2 ABG HCO3 ABG O2 Saturation ABG Base Excess ABG Hemoglobin Oxyhemoglobin Sodium 149 H Potassium 3.5 L Chloride 110.5 H Carbon Dioxide BUN Creatinine Glucose 158 H POC Glucose 193 H 193 H Lactic Acid Calcium Magnesium AST ALT Lactate Dehydrogenase Total Creatine Kinase C-Reactive Protein Albumin Urine WBC (Auto) Urine Total Protein Digoxin Salicylates Acetaminophen 12/21/19 12/22/19 12/22/19 18:29 00:03 05:15 WBC RBC Hgb 10.3 L Hct 34.7 L MCV MCH 25 L MCHC 30 L RDW 19.4 H Lymph % (Auto) 9.0 L [place] % (Auto) 12.3 H Eos % (Auto) 5.0 H Lymph # 0.5 L [place] # Eos # Seg Neutrophils % 73.2 H Monocytes % (Manual) Monocytes # (Manual) D-Dimer ABG pH ABG pO2 ABG HCO3 ABG O2 Saturation ABG Base Excess ABG Hemoglobin Oxyhemoglobin Sodium Potassium Chloride Carbon Dioxide BUN Creatinine Glucose POC Glucose 186 H 143 H Lactic Acid Calcium Magnesium AST ALT Lactate Dehydrogenase Total Creatine Kinase C-Reactive Protein Albumin Urine WBC (Auto) Urine Total Protein Digoxin Salicylates Acetaminophen 12/22/19 12/22/19 12/22/19 05:15 06:02 12:13 WBC RBC Hgb Hct MCV MCH MCHC RDW Lymph % (Auto) [place] % (Auto) Eos % (Auto) Lymph # [place] # Eos # Seg Neutrophils % Monocytes % (Manual) Monocytes # (Manual) D-Dimer ABG pH ABG pO2 ABG HCO3 ABG O2 Saturation ABG Base Excess ABG Hemoglobin Oxyhemoglobin Sodium 152 H Potassium Chloride 113.5 H Carbon Dioxide BUN Creatinine Glucose 126 H POC Glucose 144 H 159 H Lactic Acid Calcium Magnesium AST ALT Lactate Dehydrogenase Total Creatine Kinase C-Reactive Protein Albumin Urine WBC (Auto) Urine Total Protein Digoxin Salicylates Acetaminophen 12/22/19 12/22/19 12/23/19 18:03 23:50 05:27 WBC RBC Hgb Hct MCV MCH MCHC RDW Lymph % (Auto) [place] % (Auto) Eos % (Auto) Lymph # [place] # Eos # Seg Neutrophils % Monocytes % (Manual) Monocytes # (Manual) D-Dimer ABG pH ABG pO2 ABG HCO3 ABG O2 Saturation ABG Base Excess ABG Hemoglobin Oxyhemoglobin Sodium Potassium Chloride Carbon Dioxide BUN Creatinine Glucose POC Glucose 140 H 227 H 185 H Lactic Acid Calcium Magnesium AST ALT Lactate Dehydrogenase Total Creatine Kinase C-Reactive Protein Albumin Urine WBC (Auto) Urine Total Protein Digoxin Salicylates Acetaminophen 12/23/19 12/23/19 12/23/19 12:13 16:05 16:40 WBC RBC Hgb Hct MCV MCH MCHC RDW Lymph % (Auto) [place] % (Auto) Eos % (Auto) Lymph # [place] # Eos # Seg Neutrophils % Monocytes % (Manual) Monocytes # (Manual) D-Dimer ABG pH 7.259 L ABG pO2 76.2 L ABG HCO3 30.6 H ABG O2 Saturation 94.6 L ABG Base Excess ABG Hemoglobin 11.5 L Oxyhemoglobin 92.2 L Sodium 163 H* D Potassium 3.4 L Chloride 120.1 H Carbon Dioxide BUN Creatinine Glucose 162 H POC Glucose 132 H Lactic Acid Calcium Magnesium AST ALT Lactate Dehydrogenase Total Creatine Kinase C-Reactive Protein Albumin Urine WBC (Auto) Urine Total Protein Digoxin Salicylates Acetaminophen 12/23/19 12/24/19 12/24/19 17:53 00:48 04:20 WBC RBC Hgb Hct MCV MCH MCHC RDW Lymph % (Auto) [place] % (Auto) Eos % (Auto) Lymph # [place] # Eos # Seg Neutrophils % Monocytes % (Manual) Monocytes # (Manual) D-Dimer ABG pH ABG pO2 ABG HCO3 30.4 H ABG O2 Saturation ABG Base Excess 3.9 H ABG Hemoglobin 10.3 L Oxyhemoglobin 94.4 L Sodium Potassium Chloride Carbon Dioxide BUN Creatinine Glucose POC Glucose 180 H 174 H Lactic Acid Calcium Magnesium AST ALT Lactate Dehydrogenase Total Creatine Kinase C-Reactive Protein Albumin Urine WBC (Auto) Urine Total Protein Digoxin Salicylates Acetaminophen 12/24/19 12/24/19 12/24/19 04:53 04:53 11:50 WBC RBC Hgb 9.7 L Hct 33.2 L MCV MCH 25 L MCHC 29 L RDW 20.1 H Lymph % (Auto) [place] % (Auto) Eos % (Auto) Lymph # [place] # Eos # Seg Neutrophils % Monocytes % (Manual) 15.0 H Monocytes # (Manual) 0.9 H D-Dimer ABG pH ABG pO2 ABG HCO3 ABG O2 Saturation ABG Base Excess ABG Hemoglobin Oxyhemoglobin Sodium 163 H* Potassium 3.2 L Chloride 122.6 H Carbon Dioxide BUN Creatinine Glucose 168 H POC Glucose 190 H Lactic Acid Calcium Magnesium AST ALT Lactate Dehydrogenase Total Creatine Kinase C-Reactive Protein Albumin Urine WBC (Auto) Urine Total Protein Digoxin Salicylates Acetaminophen 12/24/19 12/24/19 12/24/19 15:00 16:28 21:15 WBC RBC Hgb Hct MCV MCH MCHC RDW Lymph % (Auto) [place] % (Auto) Eos % (Auto) Lymph # [place] # Eos # Seg Neutrophils % Monocytes % (Manual) Monocytes # (Manual) D-Dimer ABG pH ABG pO2 ABG HCO3 ABG O2 Saturation ABG Base Excess ABG Hemoglobin Oxyhemoglobin Sodium 165 H* D 163 H* Potassium Chloride Carbon Dioxide BUN Creatinine Glucose POC Glucose 160 H Lactic Acid Calcium Magnesium AST ALT Lactate Dehydrogenase Total Creatine Kinase C-Reactive Protein Albumin Urine WBC (Auto) Urine Total Protein Digoxin Salicylates Acetaminophen 12/25/19 12/25/19 12/25/19 00:31 05:38 05:46 WBC RBC Hgb 9.7 L Hct 32.5 L MCV MCH 25 L MCHC 30 L RDW 19.4 H Lymph % (Auto) [place] % (Auto) Eos % (Auto) Lymph # [place] # Eos # Seg Neutrophils % Monocytes % (Manual) Monocytes # (Manual) D-Dimer ABG pH ABG pO2 ABG HCO3 ABG O2 Saturation ABG Base Excess ABG Hemoglobin Oxyhemoglobin Sodium Potassium Chloride Carbon Dioxide BUN Creatinine Glucose POC Glucose 182 H 194 H Lactic Acid Calcium Magnesium AST ALT Lactate Dehydrogenase Total Creatine Kinase C-Reactive Protein Albumin Urine WBC (Auto) Urine Total Protein Digoxin Salicylates Acetaminophen 12/25/19 12/25/19 12/25/19 05:46 11:35 11:38 WBC RBC Hgb Hct MCV MCH MCHC RDW Lymph % (Auto) [place] % (Auto) Eos % (Auto) Lymph # [place] # Eos # Seg Neutrophils % Monocytes % (Manual) Monocytes # (Manual) D-Dimer ABG pH 7.330 L ABG pO2 65.7 L ABG HCO3 32.6 H ABG O2 Saturation 92.5 L ABG Base Excess 5.3 H ABG Hemoglobin 10.4 L Oxyhemoglobin 90.0 L Sodium 166 H* Potassium 2.9 L* Chloride 124.5 H Carbon Dioxide BUN Creatinine Glucose 190 H POC Glucose 192 H Lactic Acid Calcium Magnesium AST ALT Lactate Dehydrogenase Total Creatine Kinase C-Reactive Protein Albumin Urine WBC (Auto) Urine Total Protein Digoxin Salicylates Acetaminophen 12/25/19 12/25/19 12/25/19 13:01 16:45 17:20 WBC RBC Hgb Hct MCV MCH MCHC RDW Lymph % (Auto) [place] % (Auto) Eos % (Auto) Lymph # [place] # Eos # Seg Neutrophils % Monocytes % (Manual) Monocytes # (Manual) D-Dimer ABG pH 7.296 L ABG pO2 101.5 H ABG HCO3 33.2 H ABG O2 Saturation ABG Base Excess 5.3 H ABG Hemoglobin 9.6 L Oxyhemoglobin 94.6 L Sodium 174 H* Potassium Chloride Carbon Dioxide BUN Creatinine Glucose POC Glucose Lactic Acid Calcium Magnesium AST ALT Lactate Dehydrogenase Total Creatine Kinase C-Reactive Protein Albumin Urine WBC (Auto) Urine Total Protein < 4 L Digoxin Salicylates Acetaminophen 12/25/19 12/25/19 12/26/19 17:48 18:50 00:43 WBC RBC Hgb Hct MCV MCH MCHC RDW Lymph % (Auto) [place] % (Auto) Eos % (Auto) Lymph # [place] # Eos # Seg Neutrophils % Monocytes % (Manual) Monocytes # (Manual) D-Dimer ABG pH ABG pO2 ABG HCO3 ABG O2 Saturation ABG Base Excess ABG Hemoglobin Oxyhemoglobin Sodium 166 H* 164 H* Potassium Chloride 127.3 H Carbon Dioxide BUN Creatinine Glucose 220 H POC Glucose 252 H Lactic Acid Calcium Magnesium AST ALT Lactate Dehydrogenase Total Creatine Kinase C-Reactive Protein Albumin Urine WBC (Auto) Urine Total Protein Digoxin Salicylates Acetaminophen 12/26/19 12/26/19 12/26/19 05:31 08:07 08:07 WBC 4.3 L RBC Hgb 9.6 L Hct 32.1 L MCV MCH 26 L MCHC 30 L RDW 20.5 H Lymph % (Auto) [place] % (Auto) Eos % (Auto) Lymph # [place] # Eos # Seg Neutrophils % Monocytes % (Manual) Monocytes # (Manual) D-Dimer ABG pH ABG pO2 ABG HCO3 ABG O2 Saturation ABG Base Excess ABG Hemoglobin Oxyhemoglobin Sodium 162 H* Potassium Chloride 122.1 H Carbon Dioxide BUN Creatinine Glucose 247 H POC Glucose 187 H Lactic Acid Calcium Magnesium AST ALT Lactate Dehydrogenase Total Creatine Kinase C-Reactive Protein Albumin Urine WBC (Auto) Urine Total Protein Digoxin Salicylates Acetaminophen 12/26/19 12/26/19 12/26/19 08:07 12:20 16:25 WBC RBC Hgb Hct MCV MCH MCHC RDW Lymph % (Auto) [place] % (Auto) Eos % (Auto) Lymph # [place] # Eos # Seg Neutrophils % Monocytes % (Manual) Monocytes # (Manual) D-Dimer ABG pH 7.290 L ABG pO2 73.2 L ABG HCO3 33.2 H ABG O2 Saturation 94.9 L ABG Base Excess 5.2 H ABG Hemoglobin 10.0 L Oxyhemoglobin 92.5 L Sodium 159 H Potassium Chloride Carbon Dioxide BUN Creatinine Glucose POC Glucose 234 H Lactic Acid Calcium Magnesium AST ALT Lactate Dehydrogenase Total Creatine Kinase C-Reactive Protein Albumin Urine WBC (Auto) Urine Total Protein Digoxin Salicylates Acetaminophen 12/26/19 12/26/19 12/26/19 17:33 22:35 23:30 WBC RBC Hgb Hct MCV MCH MCHC RDW Lymph % (Auto) [place] % (Auto) Eos % (Auto) Lymph # [place] # Eos # Seg Neutrophils % Monocytes % (Manual) Monocytes # (Manual) D-Dimer ABG pH ABG pO2 ABG HCO3 ABG O2 Saturation ABG Base Excess ABG Hemoglobin Oxyhemoglobin Sodium Potassium Chloride Carbon Dioxide BUN Creatinine Glucose POC Glucose 244 H 208 H 287 H Lactic Acid Calcium Magnesium AST ALT Lactate Dehydrogenase Total Creatine Kinase C-Reactive Protein Albumin Urine WBC (Auto) Urine Total Protein Digoxin Salicylates Acetaminophen 12/27/19 12/27/19 12/27/19 03:48 03:48 03:48 WBC RBC Hgb 10.1 L Hct 35.4 L MCV MCH 25 L MCHC 29 L RDW 20.1 H Lymph % (Auto) [place] % (Auto) Eos % (Auto) Lymph # [place] # Eos # Seg Neutrophils % Monocytes % (Manual) Monocytes # (Manual) D-Dimer ABG pH ABG pO2 ABG HCO3 ABG O2 Saturation ABG Base Excess ABG Hemoglobin Oxyhemoglobin Sodium 160 H Potassium Chloride 118.8 H Carbon Dioxide 33 H BUN Creatinine Glucose 217 H POC Glucose Lactic Acid Calcium Magnesium 2.70 H AST ALT Lactate Dehydrogenase Total Creatine Kinase C-Reactive Protein Albumin Urine WBC (Auto) Urine Total Protein Digoxin Salicylates Acetaminophen 12/27/19 12/27/19 12/27/19 05:50 11:58 16:05 WBC RBC Hgb Hct MCV MCH MCHC RDW Lymph % (Auto) [place] % (Auto) Eos % (Auto) Lymph # [place] # Eos # Seg Neutrophils % Monocytes % (Manual) Monocytes # (Manual) D-Dimer ABG pH 7.180 L* ABG pO2 73.6 L ABG HCO3 34.8 H ABG O2 Saturation 92.7 L ABG Base Excess 3.8 H ABG Hemoglobin 12.0 L Oxyhemoglobin 90.2 L Sodium Potassium Chloride Carbon Dioxide BUN Creatinine Glucose POC Glucose 224 H 218 H Lactic Acid Calcium Magnesium AST ALT Lactate Dehydrogenase Total Creatine Kinase C-Reactive Protein Albumin Urine WBC (Auto) Urine Total Protein Digoxin Salicylates Acetaminophen 12/27/19 12/27/19 12/27/19 18:05 19:50 21:53 WBC RBC Hgb Hct MCV MCH MCHC RDW Lymph % (Auto) [place] % (Auto) Eos % (Auto) Lymph # [place] # Eos # Seg Neutrophils % Monocytes % (Manual) Monocytes # (Manual) D-Dimer ABG pH 7.328 L ABG pO2 49.9 L ABG HCO3 33.3 H ABG O2 Saturation 87.1 L ABG Base Excess 5.7 H ABG Hemoglobin 11.2 L Oxyhemoglobin 84.8 L Sodium Potassium Chloride Carbon Dioxide BUN Creatinine Glucose POC Glucose 214 H 178 H Lactic Acid Calcium Magnesium AST ALT Lactate Dehydrogenase Total Creatine Kinase C-Reactive Protein Albumin Urine WBC (Auto) Urine Total Protein Digoxin Salicylates Acetaminophen 12/28/19 12/28/19 12/28/19 00:42 04:37 04:37 WBC RBC Hgb 9.8 L Hct 33.5 L MCV MCH 25 L MCHC 29 L RDW 21.1 H Lymph % (Auto) [place] % (Auto) Eos % (Auto) Lymph # [place] # Eos # Seg Neutrophils % Monocytes % (Manual) Monocytes # (Manual) D-Dimer ABG pH ABG pO2 ABG HCO3 ABG O2 Saturation ABG Base Excess ABG Hemoglobin Oxyhemoglobin Sodium 157 H Potassium 3.4 L Chloride 117.5 H Carbon Dioxide BUN Creatinine Glucose 193 H POC Glucose 157 H Lactic Acid Calcium Magnesium AST ALT Lactate Dehydrogenase Total Creatine Kinase C-Reactive Protein Albumin Urine WBC (Auto) Urine Total Protein Digoxin Salicylates Acetaminophen 12/28/19 12/28/19 12/28/19 04:52 05:19 12:05 WBC RBC Hgb Hct MCV MCH MCHC RDW Lymph % (Auto) [place] % (Auto) Eos % (Auto) Lymph # [place] # Eos # Seg Neutrophils % Monocytes % (Manual) Monocytes # (Manual) D-Dimer ABG pH ABG pO2 51.7 L ABG HCO3 28.7 H ABG O2 Saturation 89.9 L ABG Base Excess 4.1 H ABG Hemoglobin 9.7 L Oxyhemoglobin 87.7 L Sodium Potassium Chloride Carbon Dioxide BUN Creatinine Glucose POC Glucose 202 H 248 H Lactic Acid Calcium Magnesium AST ALT Lactate Dehydrogenase Total Creatine Kinase C-Reactive Protein Albumin Urine WBC (Auto) Urine Total Protein Digoxin Salicylates Acetaminophen 12/28/19 12/28/19 12/28/19 18:11 21:15 23:22 WBC RBC Hgb Hct MCV MCH MCHC RDW Lymph % (Auto) [place] % (Auto) Eos % (Auto) Lymph # [place] # Eos # Seg Neutrophils % Monocytes % (Manual) Monocytes # (Manual) D-Dimer ABG pH ABG pO2 ABG HCO3 ABG O2 Saturation ABG Base Excess ABG Hemoglobin Oxyhemoglobin Sodium Potassium Chloride Carbon Dioxide BUN Creatinine Glucose POC Glucose 226 H 217 H 227 H Lactic Acid Calcium Magnesium AST ALT Lactate Dehydrogenase Total Creatine Kinase C-Reactive Protein Albumin Urine WBC (Auto) Urine Total Protein Digoxin Salicylates Acetaminophen 12/29/19 12/29/19 12/29/19 04:09 04:59 04:59 WBC 11.1 H RBC Hgb 9.3 L Hct 31.1 L MCV 81 L MCH 24 L MCHC 30 L RDW 19.9 H Lymph % (Auto) [place] % (Auto) Eos % (Auto) Lymph # [place] # Eos # Seg Neutrophils % Monocytes % (Manual) Monocytes # (Manual) D-Dimer ABG pH 7.473 H ABG pO2 126.1 H ABG HCO3 29.2 H ABG O2 Saturation ABG Base Excess 5.1 H ABG Hemoglobin 8.4 L Oxyhemoglobin Sodium 157 H Potassium 3.2 L Chloride 118.2 H Carbon Dioxide BUN Creatinine 1.7 H Glucose 229 H POC Glucose Lactic Acid Calcium Magnesium AST ALT Lactate Dehydrogenase Total Creatine Kinase C-Reactive Protein Albumin Urine WBC (Auto) Urine Total Protein Digoxin Salicylates Acetaminophen 12/29/19 12/29/19 12/29/19 05:15 12:13 17:59 WBC RBC Hgb Hct MCV MCH MCHC RDW Lymph % (Auto) [place] % (Auto) Eos % (Auto) Lymph # [place] # Eos # Seg Neutrophils % Monocytes % (Manual) Monocytes # (Manual) D-Dimer ABG pH ABG pO2 ABG HCO3 ABG O2 Saturation ABG Base Excess ABG Hemoglobin Oxyhemoglobin Sodium Potassium Chloride Carbon Dioxide BUN Creatinine Glucose POC Glucose 221 H 392 H 365 H Lactic Acid Calcium Magnesium AST ALT Lactate Dehydrogenase Total Creatine Kinase C-Reactive Protein Albumin Urine WBC (Auto) Urine Total Protein Digoxin Salicylates Acetaminophen 12/29/19 12/29/19 12/30/19 20:25 23:38 04:45 WBC RBC Hgb Hct MCV MCH MCHC RDW Lymph % (Auto) [place] % (Auto) Eos % (Auto) Lymph # [place] # Eos # Seg Neutrophils % Monocytes % (Manual) Monocytes # (Manual) D-Dimer ABG pH 7.261 L 7.343 L ABG pO2 60.3 L 54.3 L ABG HCO3 32.1 H 30.9 H ABG O2 Saturation 87.6 L 88.3 L ABG Base Excess 3.7 H 4.0 H ABG Hemoglobin 9.7 L 11.6 L Oxyhemoglobin 85.2 L 86.0 L Sodium Potassium Chloride Carbon Dioxide BUN Creatinine Glucose POC Glucose 402 H Lactic Acid Calcium Magnesium AST ALT Lactate Dehydrogenase Total Creatine Kinase C-Reactive Protein Albumin Urine WBC (Auto) Urine Total Protein Digoxin Salicylates Acetaminophen 12/30/19 12/30/19 12/30/19 05:06 05:06 05:06 WBC 11.7 H RBC Hgb 9.4 L Hct 32.4 L MCV 83 L MCH 24 L MCHC 29 L RDW 20.2 H Lymph % (Auto) [place] % (Auto) Eos % (Auto) Lymph # [place] # Eos # Seg Neutrophils % Monocytes % (Manual) Monocytes # (Manual) D-Dimer ABG pH ABG pO2 ABG HCO3 ABG O2 Saturation ABG Base Excess ABG Hemoglobin Oxyhemoglobin Sodium 159 H Potassium 3.2 L Chloride 120.1 H Carbon Dioxide 31 H BUN Creatinine 1.9 H Glucose 404 H POC Glucose Lactic Acid Calcium Magnesium 2.60 H AST ALT Lactate Dehydrogenase Total Creatine Kinase C-Reactive Protein Albumin Urine WBC (Auto) Urine Total Protein Digoxin Salicylates Acetaminophen 12/30/19 12/30/19 12/30/19 06:26 12:29 13:44 WBC RBC Hgb Hct MCV MCH MCHC RDW Lymph % (Auto) [place] % (Auto) Eos % (Auto) Lymph # [place] # Eos # Seg Neutrophils % Monocytes % (Manual) Monocytes # (Manual) D-Dimer ABG pH ABG pO2 ABG HCO3 ABG O2 Saturation ABG Base Excess ABG Hemoglobin Oxyhemoglobin Sodium Potassium Chloride Carbon Dioxide BUN Creatinine Glucose POC Glucose 399 H 469 H > 500 H Lactic Acid Calcium Magnesium AST ALT Lactate Dehydrogenase Total Creatine Kinase C-Reactive Protein Albumin Urine WBC (Auto) Urine Total Protein Digoxin Salicylates Acetaminophen 12/30/19 12/30/19 12/30/19 13:51 16:32 18:05 WBC RBC Hgb Hct MCV MCH MCHC RDW Lymph % (Auto) [place] % (Auto) Eos % (Auto) Lymph # [place] # Eos # Seg Neutrophils % Monocytes % (Manual) Monocytes # (Manual) D-Dimer ABG pH ABG pO2 ABG HCO3 ABG O2 Saturation ABG Base Excess ABG Hemoglobin Oxyhemoglobin Sodium Potassium Chloride Carbon Dioxide BUN Creatinine Glucose POC Glucose > 500 H 445 H 429 H Lactic Acid Calcium Magnesium AST ALT Lactate Dehydrogenase Total Creatine Kinase C-Reactive Protein Albumin Urine WBC (Auto) Urine Total Protein Digoxin Salicylates Acetaminophen 12/30/19 12/30/19 12/31/19 21:42 Unknown 00:00 WBC RBC Hgb Hct MCV MCH MCHC RDW Lymph % (Auto) [place] % (Auto) Eos % (Auto) Lymph # [place] # Eos # Seg Neutrophils % Monocytes % (Manual) Monocytes # (Manual) D-Dimer ABG pH ABG pO2 ABG HCO3 ABG O2 Saturation ABG Base Excess ABG Hemoglobin Oxyhemoglobin Sodium Potassium Chloride Carbon Dioxide BUN Creatinine Glucose 498 H POC Glucose 371 H 452 H Lactic Acid Calcium Magnesium AST ALT Lactate Dehydrogenase Total Creatine Kinase C-Reactive Protein Albumin Urine WBC (Auto) Urine Total Protein Digoxin Salicylates Acetaminophen 12/31/19 12/31/19 12/31/19 04:31 05:42 08:01 WBC RBC Hgb Hct MCV MCH MCHC RDW Lymph % (Auto) [place] % (Auto) Eos % (Auto) Lymph # [place] # Eos # Seg Neutrophils % Monocytes % (Manual) Monocytes # (Manual) D-Dimer ABG pH 7.251 L ABG pO2 62.4 L ABG HCO3 31.1 H ABG O2 Saturation 88.7 L ABG Base Excess ABG Hemoglobin 8.7 L Oxyhemoglobin 86.4 L Sodium Potassium Chloride Carbon Dioxide BUN Creatinine Glucose POC Glucose 443 H 443 H Lactic Acid Calcium Magnesium AST ALT Lactate Dehydrogenase Total Creatine Kinase C-Reactive Protein Albumin Urine WBC (Auto) Urine Total Protein Digoxin Salicylates Acetaminophen 12/31/19 12/31/19 12/31/19 09:08 10:00 11:50 WBC RBC Hgb Hct MCV MCH MCHC RDW Lymph % (Auto) [place] % (Auto) Eos % (Auto) Lymph # [place] # Eos # Seg Neutrophils % Monocytes % (Manual) Monocytes # (Manual) D-Dimer ABG pH 7.325 L ABG pO2 97.2 H ABG HCO3 30.1 H ABG O2 Saturation ABG Base Excess 3.4 H ABG Hemoglobin 8.3 L Oxyhemoglobin 94.7 L Sodium 151 H D Potassium 3.2 L Chloride 113.0 H Carbon Dioxide BUN 23 H Creatinine 1.8 H Glucose 373 H POC Glucose 465 H Lactic Acid Calcium Magnesium AST ALT Lactate Dehydrogenase Total Creatine Kinase C-Reactive Protein Albumin Urine WBC (Auto) Urine Total Protein Digoxin Salicylates Acetaminophen 12/31/19 12/31/19 12/31/19 12:25 13:33 18:30 WBC RBC Hgb Hct MCV MCH MCHC RDW Lymph % (Auto) [place] % (Auto) Eos % (Auto) Lymph # [place] # Eos # Seg Neutrophils % Monocytes % (Manual) Monocytes # (Manual) D-Dimer ABG pH ABG pO2 ABG HCO3 ABG O2 Saturation ABG Base Excess ABG Hemoglobin Oxyhemoglobin Sodium Potassium Chloride Carbon Dioxide BUN Creatinine Glucose POC Glucose 379 H 311 H 349 H Lactic Acid Calcium Magnesium AST ALT Lactate Dehydrogenase Total Creatine Kinase C-Reactive Protein Albumin Urine WBC (Auto) Urine Total Protein Digoxin Salicylates Acetaminophen 12/31/19 12/31/19 01/01/20 22:29 23:30 02:58 WBC RBC Hgb Hct MCV MCH MCHC RDW Lymph % (Auto) [place] % (Auto) Eos % (Auto) Lymph # [place] # Eos # Seg Neutrophils % Monocytes % (Manual) Monocytes # (Manual) D-Dimer ABG pH ABG pO2 ABG HCO3 ABG O2 Saturation ABG Base Excess ABG Hemoglobin Oxyhemoglobin Sodium Potassium Chloride Carbon Dioxide BUN Creatinine Glucose POC Glucose 256 H 266 H 248 H Lactic Acid Calcium Magnesium AST ALT Lactate Dehydrogenase Total Creatine Kinase C-Reactive Protein Albumin Urine WBC (Auto) Urine Total Protein Digoxin Salicylates Acetaminophen 01/01/20 01/01/20 01/01/20 04:19 06:56 10:52 WBC RBC Hgb Hct MCV MCH MCHC RDW Lymph % (Auto) [place] % (Auto) Eos % (Auto) Lymph # [place] # Eos # Seg Neutrophils % Monocytes % (Manual) Monocytes # (Manual) D-Dimer ABG pH ABG pO2 90.7 H ABG HCO3 29.1 H ABG O2 Saturation ABG Base Excess 3.8 H ABG Hemoglobin 8.1 L Oxyhemoglobin 94.5 L Sodium Potassium Chloride Carbon Dioxide BUN Creatinine Glucose POC Glucose 303 H 244 H Lactic Acid Calcium Magnesium AST ALT Lactate Dehydrogenase Total Creatine Kinase C-Reactive Protein Albumin Urine WBC (Auto) Urine Total Protein Digoxin Salicylates Acetaminophen 01/01/20 01/01/20 01/01/20 13:39 14:49 18:42 WBC RBC Hgb Hct MCV MCH MCHC RDW Lymph % (Auto) [place] % (Auto) Eos % (Auto) Lymph # [place] # Eos # Seg Neutrophils % Monocytes % (Manual) Monocytes # (Manual) D-Dimer ABG pH ABG pO2 ABG HCO3 ABG O2 Saturation ABG Base Excess ABG Hemoglobin Oxyhemoglobin Sodium 147 H Potassium Chloride 107.1 H Carbon Dioxide BUN 28 H Creatinine Glucose 207 H POC Glucose 263 H 188 H Lactic Acid Calcium Magnesium AST ALT Lactate Dehydrogenase Total Creatine Kinase C-Reactive Protein Albumin Urine WBC (Auto) Urine Total Protein Digoxin Salicylates Acetaminophen 01/02/20 01/02/20 01/02/20 02:22 03:58 05:00 WBC RBC 3.31 L Hgb 8.0 L Hct 26.9 L MCV 81 L MCH 24 L MCHC 30 L RDW 19.4 H Lymph % (Auto) [place] % (Auto) 9.4 H Eos % (Auto) 11.2 H Lymph # [place] # Eos # 0.8 H Seg Neutrophils % Monocytes % (Manual) Monocytes # (Manual) D-Dimer ABG pH ABG pO2 63.0 L ABG HCO3 31.6 H ABG O2 Saturation 91.8 L ABG Base Excess 5.5 H ABG Hemoglobin 8.6 L Oxyhemoglobin 89.6 L Sodium Potassium Chloride Carbon Dioxide BUN Creatinine Glucose POC Glucose 196 H Lactic Acid Calcium Magnesium AST ALT Lactate Dehydrogenase Total Creatine Kinase C-Reactive Protein Albumin Urine WBC (Auto) Urine Total Protein Digoxin Salicylates Acetaminophen 01/02/20 01/02/20 01/02/20 05:40 10:26 13:57 WBC RBC Hgb Hct MCV MCH MCHC RDW Lymph % (Auto) [place] % (Auto) Eos % (Auto) Lymph # [place] # Eos # Seg Neutrophils % Monocytes % (Manual) Monocytes # (Manual) D-Dimer ABG pH ABG pO2 ABG HCO3 ABG O2 Saturation ABG Base Excess ABG Hemoglobin Oxyhemoglobin Sodium Potassium Chloride Carbon Dioxide BUN Creatinine Glucose POC Glucose 189 H 157 H 178 H Lactic Acid Calcium Magnesium AST ALT Lactate Dehydrogenase Total Creatine Kinase C-Reactive Protein Albumin Urine WBC (Auto) Urine Total Protein Digoxin Salicylates Acetaminophen 01/02/20 01/03/20 01/03/20 21:27 03:12 05:26 WBC RBC Hgb Hct MCV MCH MCHC RDW Lymph % (Auto) [place] % (Auto) Eos % (Auto) Lymph # [place] # Eos # Seg Neutrophils % Monocytes % (Manual) Monocytes # (Manual) D-Dimer ABG pH 7.473 H ABG pO2 109.6 H ABG HCO3 30.4 H ABG O2 Saturation ABG Base Excess 6.2 H ABG Hemoglobin 9.9 L Oxyhemoglobin Sodium Potassium Chloride Carbon Dioxide BUN Creatinine Glucose POC Glucose 131 H 133 H Lactic Acid Calcium Magnesium AST ALT Lactate Dehydrogenase Total Creatine Kinase C-Reactive Protein Albumin Urine WBC (Auto) Urine Total Protein Digoxin Salicylates Acetaminophen 01/03/20 01/03/20 01/03/20 05:40 05:40 15:01 WBC RBC 3.45 L Hgb 8.3 L Hct 27.3 L MCV 79 L MCH 24 L MCHC 30 L RDW 19.3 H Lymph % (Auto) [place] % (Auto) Eos % (Auto) Lymph # [place] # Eos # Seg Neutrophils % Monocytes % (Manual) Monocytes # (Manual) D-Dimer ABG pH ABG pO2 ABG HCO3 ABG O2 Saturation ABG Base Excess ABG Hemoglobin Oxyhemoglobin Sodium 151 H Potassium Chloride 111.8 H Carbon Dioxide 31 H BUN 37 H Creatinine 1.8 H Glucose 187 H POC Glucose 164 H Lactic Acid Calcium Magnesium AST ALT Lactate Dehydrogenase Total Creatine Kinase C-Reactive Protein Albumin Urine WBC (Auto) Urine Total Protein Digoxin Salicylates Acetaminophen 01/03/20 01/03/20 01/04/20 18:15 22:45 02:11 WBC RBC Hgb Hct MCV MCH MCHC RDW Lymph % (Auto) [place] % (Auto) Eos % (Auto) Lymph # [place] # Eos # Seg Neutrophils % Monocytes % (Manual) Monocytes # (Manual) D-Dimer ABG pH ABG pO2 ABG HCO3 ABG O2 Saturation ABG Base Excess ABG Hemoglobin Oxyhemoglobin Sodium Potassium Chloride Carbon Dioxide BUN Creatinine Glucose POC Glucose 184 H 176 H 206 H Lactic Acid Calcium Magnesium AST ALT Lactate Dehydrogenase Total Creatine Kinase C-Reactive Protein Albumin Urine WBC (Auto) Urine Total Protein Digoxin Salicylates Acetaminophen 01/04/20 01/04/20 01/04/20 03:16 05:15 10:53 WBC RBC Hgb Hct MCV MCH MCHC RDW Lymph % (Auto) [place] % (Auto) Eos % (Auto) Lymph # [place] # Eos # Seg Neutrophils % Monocytes % (Manual) Monocytes # (Manual) D-Dimer ABG pH 7.282 L ABG pO2 73.2 L ABG HCO3 ABG O2 Saturation 94.5 L ABG Base Excess -6.4 L ABG Hemoglobin 10.9 L Oxyhemoglobin 92.1 L Sodium Potassium Chloride Carbon Dioxide BUN Creatinine Glucose POC Glucose 139 H 224 H Lactic Acid Calcium Magnesium AST ALT Lactate Dehydrogenase Total Creatine Kinase C-Reactive Protein Albumin Urine WBC (Auto) Urine Total Protein Digoxin Salicylates Acetaminophen 01/04/20 01/04/20 01/04/20 15:47 18:05 22:07 WBC RBC Hgb Hct MCV MCH MCHC RDW Lymph % (Auto) [place] % (Auto) Eos % (Auto) Lymph # [place] # Eos # Seg Neutrophils % Monocytes % (Manual) Monocytes # (Manual) D-Dimer ABG pH ABG pO2 ABG HCO3 ABG O2 Saturation ABG Base Excess ABG Hemoglobin Oxyhemoglobin Sodium Potassium Chloride Carbon Dioxide BUN Creatinine Glucose POC Glucose 135 H 117 H 108 H Lactic Acid Calcium Magnesium AST ALT Lactate Dehydrogenase Total Creatine Kinase C-Reactive Protein Albumin Urine WBC (Auto) Urine Total Protein Digoxin Salicylates Acetaminophen 01/04/20 01/04/20 01/05/20 Unknown Unknown 02:04 WBC RBC 3.46 L Hgb 8.2 L Hct 27.8 L MCV 80 L MCH 24 L MCHC 30 L RDW 19.7 H Lymph % (Auto) [place] % (Auto) Eos % (Auto) Lymph # [place] # Eos # Seg Neutrophils % Monocytes % (Manual) Monocytes # (Manual) D-Dimer ABG pH ABG pO2 ABG HCO3 ABG O2 Saturation ABG Base Excess ABG Hemoglobin Oxyhemoglobin Sodium 150 H Potassium Chloride 110 H Carbon Dioxide 32 H BUN 32 H Creatinine Glucose 309 H POC Glucose 140 H Lactic Acid Calcium Magnesium AST ALT Lactate Dehydrogenase Total Creatine Kinase C-Reactive Protein Albumin Urine WBC (Auto) Urine Total Protein Digoxin Salicylates Acetaminophen 01/05/20 01/05/20 01/05/20 03:31 03:36 03:36 WBC RBC 3.46 L Hgb 8.4 L Hct 26.9 L MCV 78 L MCH 24 L MCHC 31 L RDW 19.0 H Lymph % (Auto) [place] % (Auto) Eos % (Auto) Lymph # [place] # Eos # Seg Neutrophils % Monocytes % (Manual) Monocytes # (Manual) D-Dimer ABG pH 7.454 H ABG pO2 113.0 H ABG HCO3 30.5 H ABG O2 Saturation ABG Base Excess 6.0 H ABG Hemoglobin 8.5 L Oxyhemoglobin Sodium 150 H Potassium Chloride 110.3 H Carbon Dioxide BUN 30 H Creatinine Glucose 148 H POC Glucose Lactic Acid Calcium Magnesium AST ALT Lactate Dehydrogenase Total Creatine Kinase C-Reactive Protein Albumin Urine WBC (Auto) Urine Total Protein Digoxin Salicylates Acetaminophen 01/05/20 05:21 WBC RBC Hgb Hct MCV MCH MCHC RDW Lymph % (Auto) [place] % (Auto) Eos % (Auto) Lymph # [place] # Eos # Seg Neutrophils % Monocytes % (Manual) Monocytes # (Manual) D-Dimer ABG pH ABG pO2 ABG HCO3 ABG O2 Saturation ABG Base Excess ABG Hemoglobin Oxyhemoglobin Sodium Potassium Chloride Carbon Dioxide BUN Creatinine Glucose POC Glucose 142 H Lactic Acid Calcium Magnesium AST ALT Lactate Dehydrogenase Total Creatine Kinase C-Reactive Protein Albumin Urine WBC (Auto) Urine Total Protein Digoxin Salicylates Acetaminophen Allied health notes reviewed: RT
[2020-01-05] MEDS ORDERED: MIDAZOLAM 5 MG/5 ML INJ MDV IV ONE (09:00)
[2020-01-05] MEDS ORDERED: LIDOCAINE (1%) 10 MG/1 ML VIAL 20 ML MDV INFILTRATI ONE (09:00)
[2020-01-05] MEDS ORDERED: SODIUM CHLORIDE 0.9% IRR 1,000 ML BOTTLE IR ONE (09:00)
[2020-01-05] MEDS ORDERED: SODIUM CHLORIDE 0.9% 250ML 250 ML IV SCH (09:00)
--- NOTE | 2020-01-05 09:37 | Procedure Note ---
Date of procedure: 01/05/20 Pre-op diagnosis: Severe sepsis with septic shock, persistent pulmonary infiltrates Post-op diagnosis: same Procedure: Fiberoptic bronchoscopy, lower airway inspection and bronchial washings. Patient was on fentanyl, 3mg IV Midazolam was administered. Patient was monitored by the RN Patient is orally intubated, FIO2 increased to a 100% Time out was done. [place] precautions were addressed A disposal bronchoscope was inserted via the elbow connector through the ETT. Thick mucus plugs were noted in the upper airway. The right lung- upper lobe, bronchus intermedius, and lower lobe were inspected- there were no endobronchial lesions. Some airway mucosal edema and thin secretions. The left lung was inspected, the BRUNO, lingula and lower lobe. No endobronchial lesions. Mixed bronchial washings were obtained. There were no immediate complications Anesthesia: other (Previously sedated) Surgeon: BRIGIDO RAMIREZ Estimated blood loss: none Pathology: none Specimen disposition: to lab (Bronchial washings) Condition: critical Disposition: ICU
[2020-01-05] MEDS: FLUCONAZOLE 200 MG 200 MG/100 ML BAG IV SCH (09:43)
[2020-01-05] MEDS: POTASSIUM CHLORIDE 20 MEQ PACKET FEEDTUBE SCH (09:45)
[2020-01-05] MEDS: HEPARIN 5,000 UNIT/1 ML VIAL SUB-Q SCH ×2 (09:45→22:29)
[2020-01-05] MEDS: FOLIC ACID 1 MG TAB PO SCH (09:45)
[2020-01-05] MEDS: DOCUSATE SODIUM 100 MG/10 ML ORAL LIQD PO SCH ×2 (09:45→22:30)
[2020-01-05] MEDS: FAMOTIDINE 20 MG TAB PO SCH ×2 (09:45→22:30)
[2020-01-05] MEDS ORDERED: WATER FOR INJ Sterile (PF) 10 ML ONE (09:49)
[2020-01-05] MEDS: ASPIRIN 81 MG TAB CHEW PO SCH (09:53)
[2020-01-05] MEDS: IPRATROPIUM/ALBUTEROL SULFATE 3 ML AMPUL.NEB IH SCH ×3 (09:54→20:36)
[2020-01-05] MEDS ORDERED: ALTEPLASE 2 MG INJ IV ONE (10:00)
[2020-01-05] MEDS: CEFEPIME/NS 2 GM/100 ML 2 GM/100 ML BAG IV SCH (10:39)
[2020-01-05] MEDS: LINEZOLID 600 MG/300 ML BAG IV SCH ×2 (10:40→22:30)
[2020-01-05] MEDS: DEXTROSE 5% IN WATER 1,000 ML IV SCH (10:41)
--- NOTE | 2020-01-05 11:18 | Progress Note ---
<VIANCA SCOTT - Last Filed: 01/05/20 11:16> Assessment and Plan Transient sinus bradycardia echo: LVEF 45-50% TSH 2.3 Pneumonia negative COVID PCR x 2 Acute Respiratory failure Acute kidney injury Positive MRSA-sputum Anemia Avoid AV estella blocking agents. Continue telemetry monitoring Subjective Date of service: 01/05/20 Principal diagnosis: Ac. Hypoxemic Resp Failure; Septic Shock; Magdiel. PNA; PUI COVID-19; CHF; JOE Interval history: Remains intubated on the vent and on dopamine for support. Stable sinus rhythm on telemetry. No cardiac events reported overnight. Objective Vital Signs Temp Pulse Pulse Pulse Resp Resp BP 01/05/20 10:05 68 24 01/05/20 09:52 75 98/53 01/05/20 08:00 61 24 112/55 01/05/20 07:58 98.7 F 01/05/20 07:30 61 24 114/57 01/05/20 07:00 66 24 118/57 01/05/20 06:30 71 15 105/60 01/05/20 06:00 108 H 21 115/85 01/05/20 05:30 65 24 119/53 01/05/20 05:00 87 16 131/68 01/05/20 04:48 63 125/65 01/05/20 04:30 64 13 135/63 01/05/20 04:00 98.9 F 71 14 121/57 01/05/20 03:53 79 16 01/05/20 03:52 98.9 F 59 L 01/05/20 03:30 87 13 118/63 01/05/20 03:00 68 12 123/60 01/05/20 02:30 64 24 124/61 01/05/20 02:00 67 18 120/59 01/05/20 01:30 60 24 127/63 01/05/20 01:00 58 L 24 112/59 01/05/20 00:34 64 112/59 01/05/20 00:30 73 24 128/55 01/05/20 00:00 99.0 F 77 79 24 131/63 01/04/20 23:30 91 H 22 135/72 01/04/20 23:00 93 H 13 120/57 01/04/20 22:30 72 24 123/59 01/04/20 22:04 77 24 125/60 01/04/20 22:00 77 24 125/60 01/04/20 21:30 78 24 124/57 01/04/20 21:00 64 24 121/55 01/04/20 20:59 110 H 24 01/04/20 20:54 64 124/58 01/04/20 20:30 62 24 131/61 01/04/20 20:00 98.9 F 53 L 79 24 107/46 01/04/20 19:30 82 24 117/57 01/04/20 19:00 86 13 111/56 01/04/20 18:00 73 24 108/55 01/04/20 17:30 81 24 100/58 01/04/20 17:00 64 24 102/51 01/04/20 16:30 75 24 98/50 01/04/20 16:28 79 121/59 01/04/20 16:00 98.6 F 78 86 24 94/49 01/04/20 15:30 73 20 94/47 01/04/20 15:00 82 16 108/55 01/04/20 14:30 79 24 105/51 01/04/20 14:14 78 24 01/04/20 14:00 90 20 95/55 01/04/20 13:30 71 24 114/52 01/04/20 13:00 80 18 107/55 01/04/20 12:37 87 102/60 01/04/20 12:30 89 24 125/48 01/04/20 12:00 98.4 F 85 73 19 112/46 01/04/20 11:30 89 24 110/62 Pulse Ox 01/05/20 10:05 01/05/20 09:52 93 01/05/20 08:00 100 01/05/20 07:58 01/05/20 07:30 99 01/05/20 07:00 99 01/05/20 06:30 98 01/05/20 06:00 98 01/05/20 05:30 99 01/05/20 05:00 96 01/05/20 04:48 99 01/05/20 04:30 100 01/05/20 04:00 99 01/05/20 03:53 100 01/05/20 03:52 01/05/20 03:30 97 01/05/20 03:00 98 01/05/20 02:30 98 01/05/20 02:00 99 01/05/20 01:30 99 01/05/20 01:00 99 01/05/20 00:34 98 01/05/20 00:30 98 01/05/20 00:00 98 01/04/20 23:30 97 01/04/20 23:00 100 01/04/20 22:30 98 01/04/20 22:04 98 01/04/20 22:00 97 01/04/20 21:30 100 01/04/20 21:00 99 01/04/20 20:59 01/04/20 20:54 99 01/04/20 20:30 100 01/04/20 20:00 98 01/04/20 19:30 94 01/04/20 19:00 98 01/04/20 18:00 98 01/04/20 17:30 97 01/04/20 17:00 99 01/04/20 16:30 98 01/04/20 16:28 98 01/04/20 16:00 98 01/04/20 15:30 97 01/04/20 15:00 97 01/04/20 14:30 97 01/04/20 14:14 01/04/20 14:00 98 01/04/20 13:30 97 01/04/20 13:00 98 01/04/20 12:37 97 01/04/20 12:30 97 01/04/20 12:00 97 01/04/20 11:30 94 - Physical Examination General: Other (intubated on the vent) Cardiac: Positive: Reg Rate and Rhythm - Labs and Meds CBC 01/04/20 01/05/20 Range/Units Unknown 03:36 WBC 8.0 8.0 (4.5-11.0) K/mm3 RBC 3.46 L 3.46 L (3.65-5.03) M/mm3 Hgb 8.2 L 8.4 L (11.8-15.2) gm/dl Hct 27.8 L 26.9 L (35.5-45.6) % Plt Count 362 430 (140-440) K/mm3 Comprehensive Metabolic Panel 01/04/20 01/05/20 Range/Units Unknown 03:36 Sodium 150 H 150 H (137-145) mmol/L Potassium 4.0 3.8 (3.6-5.0) mmol/L Chloride 110 H 110.3 H (98-107) mmol/L Carbon Dioxide 32 H 30 (22-30) mmol/L BUN 32 H 30 H (9-20) mg/dL Creatinine 1.5 1.5 (0.8-1.5) mg/dL Glucose 309 H 148 H (75-100) mg/dL Calcium 9.5 9.9 (8.4-10.2) mg/dL - Allied health notes Allied health notes reviewed: RT <DAVID HUERTA - Last Filed: 01/06/20 06:36> Objective Vital Signs Temp Pulse Pulse Pulse Resp Resp BP 01/06/20 04:00 97.9 F 57 L 57 L 21 120/65 01/06/20 03:43 58 L 119/66 01/06/20 03:30 67 18 119/66 01/06/20 03:00 59 L 12 125/71 01/06/20 02:30 67 17 131/72 01/06/20 02:00 60 14 126/66 01/06/20 01:30 72 17 128/68 01/06/20 01:00 66 14 125/63 01/06/20 00:30 61 24 127/67 01/06/20 00:00 98.7 F 74 84 24 133/71 01/05/20 23:32 63 141/74 01/05/20 23:30 62 24 141/74 01/05/20 23:14 55 L 24 137/63 01/05/20 23:00 54 L 24 133/72 01/05/20 22:30 75 19 122/68 01/05/20 22:00 83 23 134/76 01/05/20 21:30 75 20 131/73 01/05/20 21:00 69 17 123/68 01/05/20 20:41 77 24 01/05/20 20:37 75 125/65 01/05/20 20:30 63 21 125/65 01/05/20 20:00 98.7 F 62 79 16 126/67 01/05/20 19:30 63 10 L 143/76 01/05/20 19:00 58 L 12 145/72 01/05/20 18:30 65 17 139/72 01/05/20 18:00 57 L 25 H 148/70 01/05/20 17:30 60 10 L 148/70 01/05/20 17:00 57 L 14 145/66 01/05/20 16:35 60 144/67 01/05/20 16:30 59 L 10 L 143/68 01/05/20 16:00 99 F 63 57 L 15 150/73 01/05/20 15:30 60 15 147/69 01/05/20 15:00 65 10 L 135/64 01/05/20 14:53 68 24 01/05/20 14:30 58 L 24 157/63 01/05/20 14:00 64 24 150/75 01/05/20 13:30 82 22 46/20 01/05/20 13:06 81 84/37 01/05/20 13:00 97 H 19 144/65 01/05/20 12:30 61 16 132/69 01/05/20 12:00 98.9 F 68 68 22 155/58 01/05/20 11:30 54 L 23 146/75 01/05/20 11:00 76 13 118/62 01/05/20 10:30 63 22 100/51 01/05/20 10:05 68 24 01/05/20 10:00 93 H 19 102/66 01/05/20 09:52 75 98/53 01/05/20 09:35 01/05/20 09:30 61 12 97/48 01/05/20 09:00 61 24 109/51 01/05/20 08:30 63 24 106/53 01/05/20 08:00 64 64 16 112/55 01/05/20 07:58 98.7 F 01/05/20 07:30 61 24 114/57 01/05/20 07:00 66 24 118/57 Pulse Ox 01/06/20 04:00 99 01/06/20 03:43 98 01/06/20 03:30 98 01/06/20 03:00 96 01/06/20 02:30 97 01/06/20 02:00 98 01/06/20 01:30 96 01/06/20 01:00 97 01/06/20 00:30 98 01/06/20 00:00 98 01/05/20 23:32 98 01/05/20 23:30 98 07/01/20 23:14 98 01/05/20 23:00 99 01/05/20 22:30 97 01/05/20 22:00 98 01/05/20 21:30 98 01/05/20 21:00 99 01/05/20 20:41 01/05/20 20:37 95 01/05/20 20:30 98 01/05/20 20:00 98 01/05/20 19:30 96 01/05/20 19:00 99 01/05/20 18:30 97 01/05/20 18:00 97 01/05/20 17:30 97 01/05/20 17:00 98 01/05/20 16:35 100 01/05/20 16:30 98 01/05/20 16:00 97 01/05/20 15:30 97 01/05/20 15:00 98 01/05/20 14:53 01/05/20 14:30 100 01/05/20 14:00 97 01/05/20 13:30 92 01/05/20 13:06 92 01/05/20 13:00 96 01/05/20 12:30 98 01/05/20 12:00 97 01/05/20 11:30 98 01/05/20 11:00 98 01/05/20 10:30 97 01/05/20 10:05 01/05/20 10:00 96 01/05/20 09:52 93 01/05/20 09:35 100 01/05/20 09:30 100 01/05/20 09:00 99 01/05/20 08:30 99 01/05/20 08:00 100 01/05/20 07:58 01/05/20 07:30 99 01/05/20 07:00 99 - Labs and Meds CBC 01/06/20 Range/Units 04:58 WBC 8.3 (4.5-11.0) K/mm3 RBC 3.67 (3.65-5.03) M/mm3 Hgb 8.8 L (11.8-15.2) gm/dl Hct 28.7 L (35.5-45.6) % Plt Count 522 H (140-440) K/mm3 Comprehensive Metabolic Panel 01/05/20 01/06/20 Range/Units 14:00 04:58 Sodium 142 D 150 H D (137-145) mmol/L Potassium 3.9 3.6 (3.6-5.0) mmol/L Chloride 104.3 109.3 H (98-107) mmol/L Carbon Dioxide 28 30 (22-30) mmol/L BUN 26 H 25 H (9-20) mg/dL Creatinine 1.6 H 1.3 (0.8-1.5) mg/dL Glucose 302 H 55 L (75-100) mg/dL Calcium 9.2 10.0 (8.4-10.2) mg/dL
--- NOTE | 2020-01-05 11:39 | Progress Note ---
Assessment and Plan Cultures: Blood culture 12/18/2019 no growth Urine culture 12/19/2019 no growth Sputum culture 12/18/2019 no growth Sputum culture 12/27/2019 MRSA Blood culture 12/18/2019 no growth Blood culture 12/30/2019 no growth today A/P: 59-year-old male past medical history diastolic CHF, OHS, HTN, DM 2, hypothyroidism #Sepsis with septic shock/bradycardia: Remains on dopamine drip. Initially felt to be due possible MRSA pneumonia. ? Lymphoproliferative disorder. #MRSA pneumonia: sputum 12/26 +MRSA. CT showed bibasilar groundglass opacity. #Acute hypoxic respiratory failure: remains intubated Fio2 45,p8. CXR with increased interstitial consolidation and effusions #Diabetes: Tight glycemic control. #Multiple chronic comorbidities #JAGDEEP: creat is up #CHF #Multiple retroperitoneal lymph nodes and left cervical, subclavian lymph nodes? Lymphoproliferative disorder Recs: -stop cefepime and fluconazole -day 7 of 7 -extended -continue linezolid 600 mg IV q 12 hour - day 8 of 10 -Lymph node biopsy per primary team guarded prognosis will follow Nellie Felton MD [facility] ([facility]) Office [phone] Subjective Date of service: 01/05/20 Principal diagnosis: Ac. Hypoxemic Resp Failure; Septic Shock; Magdiel. PNA; PUI COVID-19; CHF; JOE Interval history: Remains critically ill, intubated, on dopamine drip. Objective - Constitutional Vitals: Vital Signs Temp Pulse Resp BP Pulse Ox 98.7 F 68 24 98/53 93 01/05/20 07:58 01/05/20 10:05 01/05/20 10:05 01/05/20 09:52 01/05/20 09:52 Temperature -Last 24 Hours Temperature 98.7 F Temperature 98.9 F Temperature 98.9 F Temperature 98.9 F Temperature 99.0 F Temperature 98.9 F Temperature 98.6 F Temperature 98.4 F - Labs CBC & Chem 7: 01/05/20 03:36 01/05/20 03:36 Labs: Abnormal lab results 01/04/20 01/04/20 01/04/20 Range/Units 15:47 18:05 22:07 RBC (3.65-5.03) M/mm3 Hgb (11.8-15.2) gm/dl Hct (35.5-45.6) % MCV (84-94) fl MCH (28-32) pg MCHC (32-34) % RDW (13.2-15.2) % ABG pH (7.350-7.450) pH Units ABG pO2 (80.0-90.0) mm Hg ABG HCO3 (20.0-26.0) mmol/L ABG Base Excess (-2.0-3.0) mmol/L ABG Hemoglobin (14.0-18.0) gm/dl Sodium (137-145) mmol/L Chloride (98-107) mmol/L Carbon Dioxide (22-30) mmol/L BUN (9-20) mg/dL Glucose (75-100) mg/dL POC Glucose 135 H 117 H 108 H (70-105) 01/04/20 01/04/20 01/05/20 Range/Units Unknown Unknown 02:04 RBC 3.46 L (3.65-5.03) M/mm3 Hgb 8.2 L (11.8-15.2) gm/dl Hct 27.8 L (35.5-45.6) % MCV 80 L (84-94) fl MCH 24 L (28-32) pg MCHC 30 L (32-34) % RDW 19.7 H (13.2-15.2) % ABG pH (7.350-7.450) pH Units ABG pO2 (80.0-90.0) mm Hg ABG HCO3 (20.0-26.0) mmol/L ABG Base Excess (-2.0-3.0) mmol/L ABG Hemoglobin (14.0-18.0) gm/dl Sodium 150 H (137-145) mmol/L Chloride 110 H (98-107) mmol/L Carbon Dioxide 32 H (22-30) mmol/L BUN 32 H (9-20) mg/dL Glucose 309 H (75-100) mg/dL POC Glucose 140 H (70-105) 01/05/20 01/05/20 01/05/20 Range/Units 03:31 03:36 03:36 RBC 3.46 L (3.65-5.03) M/mm3 Hgb 8.4 L (11.8-15.2) gm/dl Hct 26.9 L (35.5-45.6) % MCV 78 L (84-94) fl MCH 24 L (28-32) pg MCHC 31 L (32-34) % RDW 19.0 H (13.2-15.2) % ABG pH 7.454 H (7.350-7.450) pH Units ABG pO2 113.0 H (80.0-90.0) mm Hg ABG HCO3 30.5 H (20.0-26.0) mmol/L ABG Base Excess 6.0 H (-2.0-3.0) mmol/L ABG Hemoglobin 8.5 L (14.0-18.0) gm/dl Sodium 150 H (137-145) mmol/L Chloride 110.3 H (98-107) mmol/L Carbon Dioxide (22-30) mmol/L BUN 30 H (9-20) mg/dL Glucose 148 H (75-100) mg/dL POC Glucose (70-105) 01/05/20 Range/Units 05:21 RBC (3.65-5.03) M/mm3 Hgb (11.8-15.2) gm/dl Hct (35.5-45.6) % MCV (84-94) fl MCH (28-32) pg MCHC (32-34) % RDW (13.2-15.2) % ABG pH (7.350-7.450) pH Units ABG pO2 (80.0-90.0) mm Hg ABG HCO3 (20.0-26.0) mmol/L ABG Base Excess (-2.0-3.0) mmol/L ABG Hemoglobin (14.0-18.0) gm/dl Sodium (137-145) mmol/L Chloride (98-107) mmol/L Carbon Dioxide (22-30) mmol/L BUN (9-20) mg/dL Glucose (75-100) mg/dL POC Glucose 142 H (70-105)
--- NOTE | 2020-01-05 11:51 | Progress Note ---
Assessment and Plan - Patient Problems (1) Acute kidney injury Current Visit: Yes Status: Acute Plan to address problem: JAGDEEP 2/2 pre-renal injury in setting of sepsis and hemodynamic instability and now with vasopressor requirements. pt remains non-oliguric, renal function unchanged from yesterday . Avoid nephrotoxins, maintain MAP >65 mmHg. Will mon itor lytes/renal parameters closely and make further recommendations (2) Acute respiratory failure Current Visit: Yes Status: Acute Qualifiers: Plan to address problem: Management on vent per Pulmonary/ICU. (3) Hypernatremia Current Visit: Yes Status: Acute Plan to address problem: Na remains elevated despite free water flushes 300cc q 4hr. D5W started at 75ml/hr this AM. will monitor BMP and adjust IVF accordingly. strict I/Os (4) Pneumonia Current Visit: No Status: Acute Qualifiers: Qualified Code(s): J18.9 - Pneumonia, unspecified organism Plan to address problem: Management per primary/ICU team. (5) Diastolic CHF Current Visit: Yes Status: Acute Qualifiers: Qualified Code(s): I50.33 - Acute on chronic diastolic (congestive) heart failure Plan to address problem: Chest Xray is concerning for volume overload. IVF has been stopped at this time. (6) Obesity hypoventilation syndrome Current Visit: Yes Status: Acute Subjective Date of service: 01/05/20 Principal diagnosis: Ac. Hypoxemic Resp Failure; Septic Shock; Magdiel. PNA; PUI COVID-19; CHF; JOE Interval history: Pt remains on vent, on vasopressor support with dopamin Objective - Vital Signs Vital signs: Vital Signs - 12hr 01/05/20 01/05/20 01/05/20 00:00 00:30 00:34 Temperature 99.0 F Pulse Rate 77 73 64 Pulse Rate [ Bilateral] Pulse Rate [ 79 From Monitor] Respiratory 24 24 Rate Respiratory Rate [Bilateral ] Blood Pressure 131/63 128/55 112/59 O2 Sat by Pulse 98 98 98 Oximetry 01/05/20 01/05/20 01/05/20 01:00 01:30 02:00 Temperature Pulse Rate 58 L 60 67 Pulse Rate [ Bilateral] Pulse Rate [ From Monitor] Respiratory 24 24 18 Rate Respiratory Rate [Bilateral ] Blood Pressure 112/59 127/63 120/59 O2 Sat by Pulse 99 99 99 Oximetry 01/05/20 01/05/2020 02:30 03:00 03:30 Temperature Pulse Rate 64 68 87 Pulse Rate [ Bilateral] Pulse Rate [ From Monitor] Respiratory 24 12 13 Rate Respiratory Rate [Bilateral ] Blood Pressure 124/61 123/60 118/63 O2 Sat by Pulse 98 98 97 Oximetry 01/05/20 01/05/20 01/05/20 03:52 03:53 04:00 Temperature 98.9 F 98.9 F Pulse Rate 59 L 71 Pulse Rate [ Bilateral] Pulse Rate [ 79 From Monitor] Respiratory 16 14 Rate Respiratory Rate [Bilateral ] Blood Pressure 121/57 O2 Sat by Pulse 100 99 Oximetry 01/05/20 01/05/20 01/05/20 04:30 04:48 05:00 Temperature Pulse Rate 64 63 87 Pulse Rate [ Bilateral] Pulse Rate [ From Monitor] Respiratory 13 16 Rate Respiratory Rate [Bilateral ] Blood Pressure 135/63 125/65 131/68 O2 Sat by Pulse 100 99 96 Oximetry 01/05/20 01/05/20 01/05/20 05:30 06:00 06:30 Temperature Pulse Rate 65 108 H 71 Pulse Rate [ Bilateral] Pulse Rate [ From Monitor] Respiratory 24 21 15 Rate Respiratory Rate [Bilateral ] Blood Pressure 119/53 115/85 105/60 O2 Sat by Pulse 99 98 98 Oximetry 01/05/20 01/05/20 01/05/20 07:00 07:30 07:58 Temperature 98.7 F Pulse Rate 66 61 Pulse Rate [ Bilateral] Pulse Rate [ From Monitor] Respiratory 24 24 Rate Respiratory Rate [Bilateral ] Blood Pressure 118/57 114/57 O2 Sat by Pulse 99 99 Oximetry 01/05/20 01/05/20 01/05/20 08:00 09:52 10:05 Temperature Pulse Rate 61 75 Pulse Rate [ 68 Bilateral] Pulse Rate [ From Monitor] Respiratory 24 Rate Respiratory 24 Rate [Bilateral ] Blood Pressure 112/55 98/53 O2 Sat by Pulse 100 93 Oximetry - General Appearance General appearance: chronically ill, sedated on ventilator, intubated EENT: ATNC, PERRL, mucous membranes moist Neck: no JVD Respiratory: Present: Decreased Breath Sounds Cardiology: regular, S1S2 Gastrointestinal: normoactive bowel sounds Integumentary: no rash - Lab 01/05/20 03:36 01/05/20 03:36 Most recent lab results ABG pH 7.454 pH Units (7.350-7.450) H 01/05/20 03:31 ABG pCO2 44.5 mm Hg 01/05/20 03:31 ABG pO2 113.0 mm Hg (80.0-90.0) H 01/05/20 03:31 ABG HCO3 30.5 mmol/L (20.0-26.0) H 01/05/20 03:31 ABG O2 Saturation 98.2 % (95.0-99.0) 01/05/20 03:31 Calcium 9.9 mg/dL (8.4-10.2) 01/05/20 03:36 Phosphorus 3.70 mg/dL (2.5-4.5) 12/27/19 03:48 Magnesium 2.60 mg/dL (1.7-2.3) H 12/30/19 05:06 Urine Creatinine < 4.2 mg/dL (0.1-20.0) 12/25/19 16:45 Urine Sodium 10 mmol/L 12/25/19 16:45 Urine Total Protein < 4 mg/dL (5-11.8) L 12/25/19 16:45 Medications & Allergies - Medications Allergies/Adverse Reactions: Allergies No Known Allergies Allergy (Unverified 12/19/19 01:31) Home Medications: Home Medications Medication Instructions Recorded Confirmed Last Taken Type Ipratropium/Albuterol Sulfate 1 ampul TIDRT #90 ampul.neb 06/02/19 12/28/19 Unknown Rx [DUONEB *Not for PRN Use*] Aspirin [Aspirin BABY CHEW TAB] 81 mg PO DAILY 06/03/19 12/28/19 3 Days Ago History ~05/31/19 Desmopressin [Ddavp] 0.2 mg PO BID 06/03/19 12/28/19 3 Days Ago History ~05/31/19 Digoxin [Lanoxin] 0.125 mg PO DAILY 06/03/19 12/28/19 3 Days Ago History ~05/31/19 Folic Acid 100 mg PO DAILY 06/03/19 12/28/19 3 Days Ago History ~05/31/19 Furosemide [Lasix TAB] 40 mg PO QDAY 06/03/19 12/28/19 3 Days Ago History ~05/31/19 Insulin Lispro [Humalog 100 4 units SQ AC 06/03/19 12/28/19 3 Days Ago History UNITS/ML Kwikpen] ~05/31/19 Levothyroxine [Synthroid] 88 mcg PO QAM 06/03/19 12/28/19 3 Days Ago History ~05/31/19 Metformin HCl [metFORMIN] 1,000 mg PO BID 06/03/19 12/28/19 3 Days Ago History ~05/31/19 Potassium Chloride [K-Dur] 20 meq PO QDAY 06/03/19 12/28/19 3 Days Ago History ~05/31/19 carvediloL [Coreg] 6.25 mg PO BID 06/03/19 12/28/19 3 Days Ago History ~05/31/19 Famotidine [Pepcid] 20 mg PO QDAY #30 tablet 06/06/19 12/28/19 Unknown Rx Insulin NPH/Regular [NovoLIN 70/30] 50 unit SUB-Q BIDDIAB #100 units 06/06/19 12/28/19 Unknown Rx Active Medications: Generic Name Dose Route Start Last Admin Trade Name Freq PRN Reason Stop Dose Admin Acetaminophen 650 mg 12/29/19 09:21 01/03/20 18:31 Tylenol PO 650 mg Q4H PRN Administration Non Cardiac Pain or Temp>100.5 Albuterol/Ipratropium 1 ampul 12/18/19 14:00 01/05/20 09:54 Duoneb *Not For Prn Use* IH 1 ampul TIDRT SHANEL Administration Lipase/Protease/Amylase 1 each 12/19/19 08:29 Pancrecorry Cabrera 10,500 Unit FEEDTUBE PRN PRN For Clogged Feeding Tube Aspirin 81 mg 12/19/19 10:00 01/05/20 09:53 Baby Aspirin PO 81 mg DAILY SHANEL Administration Bisacodyl 10 mg 01/02/20 15:48 01/02/20 18:25 Dulcolax UT 10 mg QDAY PRN Administration Constipation Docusate Sodium 100 mg 01/01/20 22:00 01/05/20 09:45 Colace PO 100 mg BID SHANEL Administration Famotidine 20 mg 12/20/19 10:00 01/05/20 09:45 Pepcid PO 20 mg BID SHANEL Administration Fentanyl 50 mcg 12/27/19 16:57 Sublimaze IV Q10MIN PRN ANALGESIA Folic Acid 1 mg 12/19/19 10:00 01/05/20 09:45 Folvite PO 1 mg DAILY SHANEL Administration Heparin Sodium (Porcine) 5,000 unit 12/18/19 22:00 01/05/20 09:45 Heparin SUB-Q 5,000 unit Q12HR SHANEL Administration Hydrophilic Ointment 1 applic 12/18/19 12:35 Vaseline Lip Therapy TP Q2HR PRN Dry Lips Fentanyl Citrate 2,000 mcg in 100 mls @ 5.85 mls/hr 12/27/19 17:00 01/05/20 09:46 Fentanyl Drip Premix IV 2 mcg/kg/hr TITR SHANEL 11.7 mls/hr Administration Protocol 1 MCG/KG/HR Norepinephrine 4 mg in 250 mls @ 7.5 mls/hr 12/28/19 15:00 12/31/19 18:12 Levophed Drip 4 Mg/Ns 250 Ml IV 0 mcg/min TITR SHANEL 0 mls/hr Titration Protocol 2 MCG/MIN Linezolid 600 mg in 300 mls @ 300 mls/hr 12/29/19 15:00 01/05/20 10:40 Zyvox 600mg/300ml IV 01/07/20 22:59 300 mls/hr Q12HR SHANEL Administration Protocol Vasopressin 20 unit/ Sodium 101 mls @ 9.09 mls/hr 12/30/19 12:30 01/01/20 13:44 Chloride IV 0 units/min TITR SHANEL 0 mls/hr Titration Protocol 0.03 UNITS/MIN Dopamine HCl/Dextrose 800 mg in 250 mls @ 4.388 mls/hr 12/31/19 16:00 01/05/20 03:39 Intropin Drip 800 Mg/D5w 250 Ml IV 16 mcg/kg/min TITR SHANEL 35.1 mls/hr Administration Protocol 2 MCG/KG/MIN Cefepime HCl 2 gm in 100 mls @ 200 mls/hr 01/04/20 10:00 01/05/20 10:39 Cefepime/Ns 2 Gm/100 Ml IV 01/05/20 23:59 200 mls/hr Q12H SHANEL Administration Protocol Dextrose 1,000 mls @ 75 mls/hr 01/05/20 10:00 01/05/20 10:41 D5w IV 75 mls/hr DIRECT SHANEL Administration Insulin Glargine 35 units 01/01/20 22:00 01/04/20 22:05 Lantus SUB-Q 35 units QHS SHANEL Administration Insulin Glargine 35 units 01/01/20 11:00 01/05/20 08:44 Lantus SUB-Q 35 units QAMDIAB SHANEL Administration Insulin Human Lispro 0 unit 12/31/19 14:00 01/05/20 10:38 Humalog SUB-Q Not Given Q4HR [facility] Protocol Levothyroxine Sodium 88 mcg 12/19/19 06:00 01/05/20 05:09 Synthroid PO 88 mcg QAM@0600 SHANEL Administration Multi-Ingred Cream/Lotion/Oil/Oint 1 applic 12/18/19 12:35 Artificial Tears Ophth Oint OU Q4HR PRN Dry Eye(s) Polyethylene Glycol 17 gm 01/01/20 22:00 01/04/20 22:04 Miralax 3350 PO 17 gm QHS SHANEL Administration Potassium Chloride 40 meq 12/29/19 10:00 01/05/20 09:45 Potassium Chloride FEEDTUBE 40 meq QDAY SHANEL Administration Simple Syrup 15 ml 12/19/19 08:29 Simple Syrup FEEDTUBE PRN PRN Hypoglycemia Simple Syrup 30 ml 12/19/19 08:29 Simple Syrup FEEDTUBE PRN PRN Hypoglycemia Sodium Bicarbonate 325 mg 12/19/19 08:29 Sodium Bicarbonate FEEDTUBE PRN PRN For Clogged Feeding Tube Sodium Chloride 10 ml 12/18/19 22:00 01/05/20 09:44 Sodium Chloride Flush Syringe 10 Ml IV 10 ml BID SHANEL Administration Sodium Chloride 10 ml 12/18/19 13:31 Sodium Chloride Flush Syringe 10 Ml IV PRN PRN LINE FLUSH
[2020-01-05 15:31] LABS: Calcium 9.2 mg/dL (8.4-10.2)
[2020-01-05] MEDS: POLYETHYLENE GLYCOL 3350 17 GM POWDER PO SCH (22:30)
[2020-01-06] MEDS: DEXTROSE 5% IN WATER 1,000 ML IV SCH (00:59)
[2020-01-06 04:18] LABS: ABG Base Excess 5.1 mmol/L (-2.0-3.0); ABG HCO3 30.1 mmol/L (20.0-26.0); ABG Methemoglobin 0.5 % (0.0-1.5); ABG Oxygen Saturation 96.1 % (95.0-99.0); ABG PCO2 46.6 mm Hg; ABG PH 7.428 pH Units (7.350-7.450); ABG PO2 76.2 mm Hg (80.0-90.0)
[2020-01-06] MEDS: LEVOTHYROXINE 88 MCG TAB PO SCH (05:02)
[2020-01-06] MEDS: INSULIN LISPRO 100 UNIT/ML SUB-Q SCH ×6 (05:02→21:05)
[2020-01-06] MEDS: DOPamine/D5W 800 MG/250 ML 800 MG/250 ML BAG IV SCH ×2 (05:11→10:00)
[2020-01-06 05:35] LABS: Hematocrit 28.7 % (35.5-45.6); Hemoglobin 8.8 gm/dl (11.8-15.2); Mean Corpuscular HGB Conc 31 % (32-34); Mean Corpuscular Volume 78 fl (84-94); Platelet Count 522 K/mm3 (140-440); Red Blood Count 3.67 M/mm3 (3.65-5.03); Red Cell Distribution Width 18.7 % (13.2-15.2)
[2020-01-06 05:53] LABS: BUN/Creatinine Ratio 19; Blood Urea Nitrogen 25 mg/dL (9-20); Hemolysis Index 0
[2020-01-06] MEDS: IPRATROPIUM/ALBUTEROL SULFATE 3 ML AMPUL.NEB IH SCH ×3 (08:21→20:40)
[2020-01-06] MEDS: INSULIN GLARGINE 100 UNITS/ML SUB-Q SCH (08:32)
--- NOTE | 2020-01-06 08:59 | Progress Note ---
Assessment and Plan Cultures: Blood culture 12/18/2019 no growth Urine culture 12/19/2019 no growth Sputum culture 12/18/2019 no growth Sputum culture 12/27/2019 MRSA Blood culture 12/18/2019 no growth Blood culture 12/30/2019 no growth today COVID-19 x2 neg A/P: 59-year-old male past medical history diastolic CHF, OHS, HTN, DM 2, hypo thyroidism #Sepsis with septic shock/bradycardia: Remains on dopamine drip. Initially felt to be due possible MRSA pneumonia. ? Lymphoproliferative disorder. #MRSA pneumonia: sputum 12/26 +MRSA. CT showed bibasilar groundglass opacity. #Acute hypoxic respiratory failure: remains intubated Fio2 45,p8. CXR with increased interstitial consolidation and effusions #Diabetes: Tight glycemic control. #Multiple chronic comorbidities #JAGDEEP: creat is up #CHF #Multiple retroperitoneal lymph nodes and left cervical, subclavian lymph nodes? Lymphoproliferative disorder Recs: -continue linezolid 600 mg IV q 12 hour - day 9 of -Lymph node biopsy per primary team Dr. Pinzon will be covering from tomorrow until Friday, Dr. Tenorio will be covering Friday guarded prognosis Will sign off please call us for any question Nellie Felton MD [facility] ([facility]) Office [phone] Subjective Date of service: 01/06/20 Principal diagnosis: Ac. Hypoxemic Resp Failure; Septic Shock; Keiry. PNA; PUI COVID-19; CHF; JOE Interval history: Remains intubated, on dopamine drip. No fever. Objective - Exam Narrative Exam: Constitutional: intubated sedated Head, Ears, Nose: Normocephalic, atraumatic. Eyes: Conjunctivae/corneas clear. No icterus. No ptosis. Oral: +ETT Cardiovascular: S1, S2 normal. Respiratory: Good air entry, clear to auscultation bilaterally GI: Soft, distended non-tender; bowel sounds normal. No peritoneal signs. Musculoskeletal:keiry leg edema Skin:groin irritation Hem/Lymphatic: No palpable cervical or supraclavicular nodes. No lymphangitis Neurological: sedated - Constitutional Vitals: Vital Signs Temp Pulse Resp BP Pulse Ox 97.7 F 78 25 H 111/67 99 01/06/20 08:00 01/06/20 08:30 01/06/20 08:30 01/06/20 08:30 01/06/20 08:30 Temperature -Last 24 Hours Temperature 97.7 F Temperature 97.9 F Temperature 98.7 F Temperature 98.7 F Temperature 99 F Temperature 98.9 F - Labs CBC & Chem 7: 01/06/20 04:58 01/06/20 04:58 Labs: Abnormal lab results 01/05/20 01/05/20 01/05/20 Range/Units 09:56 11:45 13:30 Hgb (11.8-15.2) gm/dl Hct (35.5-45.6) % MCV (84-94) fl MCH (28-32) pg MCHC (32-34) % RDW (13.2-15.2) % Plt Count (140-440) K/mm3 ABG pO2 (80.0-90.0) mm Hg ABG HCO3 (20.0-26.0) mmol/L ABG Base Excess (-2.0-3.0) mmol/L ABG Hemoglobin (14.0-18.0) gm/dl Oxyhemoglobin (95.0-99.0) % Sodium (137-145) mmol/L Chloride (98-107) mmol/L BUN (9-20) mg/dL Creatinine (0.8-1.5) mg/dL Glucose (75-100) mg/dL POC Glucose 129 H 174 H 168 H (70-105) 01/05/20 01/05/20 01/05/20 Range/Units 14:00 17:41 20:38 Hgb (11.8-15.2) gm/dl Hct (35.5-45.6) % MCV (84-94) fl MCH (28-32) pg MCHC (32-34) % RDW (13.2-15.2) % Plt Count (140-440) K/mm3 ABG pO2 (80.0-90.0) mm Hg ABG HCO3 (20.0-26.0) mmol/L ABG Base Excess (-2.0-3.0) mmol/L ABG Hemoglobin (14.0-18.0) gm/dl Oxyhemoglobin (95.0-99.0) % Sodium (137-145) mmol/L Chloride (98-107) mmol/L BUN 26 H (9-20) mg/dL Creatinine 1.6 H (0.8-1.5) mg/dL Glucose 302 H (75-100) mg/dL POC Glucose 136 H 124 H (70-105) 01/05/20 01/06/20 01/06/20 Range/Units 23:32 03:50 04:09 Hgb (11.8-15.2) gm/dl Hct (35.5-45.6) % MCV (84-94) fl MCH (28-32) pg MCHC (32-34) % RDW (13.2-15.2) % Plt Count (140-440) K/mm3 ABG pO2 76.2 L (80.0-90.0) mm Hg ABG HCO3 30.1 H (20.0-26.0) mmol/L ABG Base Excess 5.1 H (-2.0-3.0) mmol/L ABG Hemoglobin 9.5 L (14.0-18.0) gm/dl Oxyhemoglobin 93.8 L (95.0-99.0) % Sodium (137-145) mmol/L Chloride (98-107) mmol/L BUN (9-20) mg/dL Creatinine (0.8-1.5) mg/dL Glucose (75-100) mg/dL POC Glucose 163 H 65 L (70-105) 01/06/20 01/06/20 01/06/20 Range/Units 04:58 04:58 05:01 Hgb 8.8 L (11.8-15.2) gm/dl Hct 28.7 L (35.5-45.6) % MCV 78 L (84-94) fl MCH 24 L (28-32) pg MCHC 31 L (32-34) % RDW 18.7 H (13.2-15.2) % Plt Count 522 H (140-440) K/mm3 ABG pO2 (80.0-90.0) mm Hg ABG HCO3 (20.0-26.0) mmol/L ABG Base Excess (-2.0-3.0) mmol/L ABG Hemoglobin (14.0-18.0) gm/dl Oxyhemoglobin (95.0-99.0) % Sodium 150 H D (137-145) mmol/L Chloride 109.3 H (98-107) mmol/L BUN 25 H (9-20) mg/dL Creatinine (0.8-1.5) mg/dL Glucose 55 L (75-100) mg/dL POC Glucose 60 L (70-105)
[2020-01-06] MEDS: LINEZOLID 600 MG/300 ML BAG IV SCH ×2 (10:01→21:04)
[2020-01-06] MEDS: POTASSIUM CHLORIDE 20 MEQ PACKET FEEDTUBE SCH (10:02)
[2020-01-06] MEDS: FOLIC ACID 1 MG TAB PO SCH (10:02)
[2020-01-06] MEDS: FAMOTIDINE 20 MG TAB PO SCH ×2 (10:02→21:03)
[2020-01-06] MEDS: ASPIRIN 81 MG TAB CHEW PO SCH (10:02)
[2020-01-06] MEDS: fentaNYL DRIP Premix 2,000 MCG/100 ML BAG IV SCH ×2 (10:19→21:38)
[2020-01-06] MEDS: HEPARIN 5,000 UNIT/1 ML VIAL SUB-Q SCH ×2 (10:21→21:04)
[2020-01-06] MEDS: DOCUSATE SODIUM 100 MG/10 ML ORAL LIQD PO SCH ×2 (10:21→21:03)
--- NOTE | 2020-01-06 10:53 | Progress Note ---
Assessment and Plan Transient sinus bradycardia echo: LVEF 45-50% TSH 2.3 Pneumonia negative COVID PCR x 2 Acute Respiratory failure Acute kidney injury -resolved Positive MRSA-sputum Anemia Avoid AV estella blocking agents. Continue telemetry monitoring Subjective Date of service: 01/06/20 Principal diagnosis: Ac. Hypoxemic Resp Failure; Septic Shock; Magdiel. PNA; PUI COVID-19; CHF; JOE Interval history: Remains intubated on the vent and on dopamine for support. Stable sinus rhythm on telemetry. No cardiac events reported overnight. Objective Vital Signs Temp Pulse Pulse Pulse Resp Resp BP 01/06/20 10:30 60 19 127/67 01/06/20 10:00 97 H 17 133/68 01/06/20 09:30 72 24 124/68 01/06/20 09:00 67 21 111/62 01/06/20 08:30 78 25 H 111/67 01/06/20 08:00 97.7 F 67 77 66 24 24 112/64 01/06/20 07:30 60 23 113/61 01/06/20 07:00 60 24 115/62 01/06/20 06:30 61 24 116/61 01/06/20 06:00 57 L 20 114/63 01/06/20 05:30 74 11 L 121/72 01/06/20 05:00 65 21 99/62 01/06/20 04:30 51 L 23 105/61 01/06/20 04:00 97.9 F 57 L 57 L 21 120/65 01/06/20 03:43 58 L 119/66 01/06/20 03:30 67 18 119/66 01/06/20 03:00 59 L 12 125/71 01/06/20 02:30 67 17 131/72 01/06/20 02:00 60 14 126/66 01/06/20 01:30 72 17 128/68 01/06/20 01:00 66 14 125/63 01/06/20 00:30 61 24 127/67 01/06/20 00:00 98.7 F 74 84 24 133/71 01/05/20 23:32 63 141/74 01/05/20 23:30 62 24 141/74 01/05/20 23:14 55 L 24 137/63 01/05/20 23:00 54 L 24 133/72 01/05/20 22:30 75 19 122/68 01/05/20 22:00 83 23 134/76 01/05/20 21:30 75 20 131/73 01/05/20 21:00 69 17 123/68 01/05/20 20:41 77 24 01/05/20 20:37 75 125/65 01/05/20 20:30 63 21 125/65 01/05/20 20:00 98.7 F 62 79 16 126/67 01/05/20 19:30 63 10 L 143/76 01/05/20 19:00 58 L 12 145/72 01/05/20 18:30 65 17 139/72 01/05/20 18:00 57 L 25 H 148/70 01/05/20 17:30 60 10 L 148/70 01/05/20 17:00 57 L 14 145/66 01/05/20 16:35 60 144/67 01/05/20 16:30 59 L 10 L 143/68 01/05/20 16:00 99 F 63 57 L 15 150/73 01/05/20 15:30 60 15 147/69 01/05/20 15:00 65 10 L 135/64 01/05/20 14:53 68 24 01/05/20 14:30 58 L 24 157/63 01/05/20 14:00 64 24 150/75 01/05/20 13:30 82 22 46/20 01/05/20 13:06 81 84/37 01/05/20 13:00 97 H 19 144/65 01/05/20 12:30 61 16 132/69 01/05/20 12:00 98.9 F 68 68 22 155/58 01/05/20 11:30 54 L 23 146/75 01/05/20 11:00 76 13 118/62 Pulse Ox 01/06/20 10:30 100 01/06/20 10:00 97 01/06/20 09:30 97 01/06/20 09:00 99 01/06/20 08:30 99 01/06/20 08:00 100 01/06/20 07:30 98 01/06/20 07:00 99 01/06/20 06:30 98 01/06/20 06:00 98 01/06/20 05:30 99 01/06/20 05:00 98 01/06/20 04:30 99 01/06/20 04:00 99 01/06/20 03:43 98 01/06/20 03:30 98 01/06/20 03:00 96 01/06/20 02:30 97 01/06/20 02:00 98 01/06/20 01:30 96 01/06/20 01:00 97 01/06/20 00:30 98 01/06/20 00:00 98 01/05/20 23:32 98 01/05/20 23:30 98 01/05/20 23:14 98 01/05/20 23:00 99 01/05/20 22:30 97 01/05/20 22:00 98 01/05/20 21:30 98 01/05/20 21:00 99 01/05/20 20:41 01/05/20 20:37 95 01/05/20 20:30 98 01/05/20 20:00 98 01/05/20 19:30 96 01/05/20 19:00 99 01/05/20 18:30 97 01/05/20 18:00 97 01/05/20 17:30 97 01/05/20 17:00 98 01/05/20 16:35 100 01/05/20 16:30 98 01/05/20 16:00 97 01/05/20 15:30 97 01/05/20 15:00 98 01/05/20 14:53 01/05/20 14:30 100 01/05/20 14:00 97 01/05/20 13:30 92 01/05/20 13:06 92 01/05/20 13:00 96 01/05/20 12:30 98 01/05/20 12:00 97 01/05/20 11:30 98 01/05/20 11:00 98 - Physical Examination General: Other (intubated on the vent) Cardiac: Positive: Reg Rate and Rhythm - Labs and Meds CBC 01/06/20 Range/Units 04:58 WBC 8.3 (4.5-11.0) K/mm3 RBC 3.67 (3.65-5.03) M/mm3 Hgb 8.8 L (11.8-15.2) gm/dl Hct 28.7 L (35.5-45.6) % Plt Count 522 H (140-440) K/mm3 Comprehensive Metabolic Panel 01/05/20 01/06/20 Range/Units 14:00 04:58 Sodium 142 D 150 H D (137-145) mmol/L Potassium 3.9 3.6 (3.6-5.0) mmol/L Chloride 104.3 109.3 H (98-107) mmol/L Carbon Dioxide 28 30 (22-30) mmol/L BUN 26 H 25 H (9-20) mg/dL Creatinine 1.6 H 1.3 (0.8-1.5) mg/dL Glucose 302 H 55 L (75-100) mg/dL Calcium 9.2 10.0 (8.4-10.2) mg/dL - Allied health notes Allied health notes reviewed: RT
[2020-01-06] MEDS: DEXTROSE 10% IN WATER 1,000 ML IV SCH (14:00)
--- NOTE | 2020-01-06 14:28 | Progress Note ---
Assessment and Plan Acute Hypoxemic Respiratory Failure Severe Sepsis with Shock Bilateral Pneumonia PUI COVID-19 Morbid Obesity H/O CHF JOE - continue bowel regimen - continue to wean vasopressors for MAP > 65 mmHg -he will need a tracheostomy - prn CXR's & ABG's at this point - continue care as below otherwise; - Daily SAT and SBT assessment as tolerated - accuchecks with glycemic control per SSI (While critically ill target blood glucose of 140-180 mg/dL; avoid hypoglycemia) - sedation for target RASS 0 to -1 - continue to wean supplemental oxygen for target O2 sat's > 92% acutely - continue bronchodilators with pulmonary hygiene per RT - VAP bundle addressed - lung protective strategies - wean per pulmonary driven protocols otherwise - continue to avoid benzodiazepine's, reduce the possibility of delirium - adjust AB's per ID rec's - prn analgesia per CPOT score - Maintenance of sleep-wake cycle - continue to avoid benzodiazepine's, reduce the possibility of delirium - continue enteral nutritional support at goal rate as tolerated - G.I. & VTE prophylaxis - PT/OT/ROM exercises - continue mobility protocols for pressure ulcer prophylaxis - repeat COVID-19 test negative - continue aspiration precautions - continue accuchecks with glycemic control per SSI (While critically ill target blood glucose of 140-180 mg/dL; avoid hypoglycemia) - Monitor hemodynamics closely - continue other care per attending / other consultants - discharge planning ongoing concurrently - LTAC evaluation requested .... Re-evaluate in am & prn CONDITION: CRITICAL PROGNOSIS: GUARDED CODE STATUS: FULL CODE The high probability of a clinically significant, sudden or life-threatening deterioration of the [respiratory, cardiovascular, GI & neurologic] system(s) required my full and direct attention, intervention and personal management. The aggregate critical care time was [36] minutes without overlap. Time includes spent on; [x] Data Review and interpretation [x] Patient assessment and monitoring of vital signs [x] Documentation [x] Medication orders and management Subjective Date of service: 01/06/20 Principal diagnosis: Ac. Hypoxemic Resp Failure; Septic Shock; Magdiel. PNA; PUI COVID-19; CHF; JOE Interval history: Patient is seen today for: Acute Hypoxemic Respiratory Failure; Severe Sepsis with Shock; Bilateral Pneumonia; PUI COVID-19; Morbid Obesity; H/O CHF; JOE Seen and examined at bedside; 24hour events reviewed; nursing and respiratory care staff consulted; no adverse overnight events reported to me; resting peacefully in bed; remains on MVS; somnolent to lethargic; remains on Dopamine drip at 10 mics/kg/min; no emesis or overt aspiration Objective Vital Signs - 12hr 01/06/20 01/06/20 01/06/20 02:30 03:00 03:30 Temperature Pulse Rate 67 59 L 67 Pulse Rate [ Bilateral] Pulse Rate [ From Monitor] Respiratory 17 12 18 Rate Respiratory Rate [Bilateral ] Blood Pressure 131/72 125/71 119/66 O2 Sat by Pulse 97 96 98 Oximetry 01/06/20 01/06/20 01/06/20 03:43 04:00 04:30 Temperature 97.9 F Pulse Rate 58 L 57 L 51 L Pulse Rate [ Bilateral] Pulse Rate [ 57 L From Monitor] Respiratory 21 23 Rate Respiratory Rate [Bilateral ] Blood Pressure 119/66 120/65 105/61 O2 Sat by Pulse 98 99 99 Oximetry 01/06/20 01/06/20 01/06/20 05:00 05:30 06:00 Temperature Pulse Rate 65 74 57 L Pulse Rate [ Bilateral] Pulse Rate [ From Monitor] Respiratory 21 11 L 20 Rate Respiratory Rate [Bilateral ] Blood Pressure 99/62 121/72 114/63 O2 Sat by Pulse 98 99 98 Oximetry 01/06/20 01/06/20 01/06/20 06:30 07:00 07:30 Temperature Pulse Rate 61 60 60 Pulse Rate [ Bilateral] Pulse Rate [ From Monitor] Respiratory 24 24 23 Rate Respiratory Rate [Bilateral ] Blood Pressure 116/61 115/62 113/61 O2 Sat by Pulse 98 99 98 Oximetry 01/06/20 01/06/20 01/06/20 08:00 08:30 09:00 Temperature 97.7 F Pulse Rate 67 78 67 Pulse Rate [ 77 Bilateral] Pulse Rate [ 66 From Monitor] Respiratory 24 25 H 21 Rate Respiratory 24 Rate [Bilateral ] Blood Pressure 112/64 111/67 111/62 O2 Sat by Pulse 100 99 99 Oximetry 01/06/20 01/06/20 01/06/20 09:30 10:00 10:30 Temperature Pulse Rate 72 97 H 60 Pulse Rate [ Bilateral] Pulse Rate [ From Monitor] Respiratory 24 17 19 Rate Respiratory Rate [Bilateral ] Blood Pressure 124/68 133/68 127/67 O2 Sat by Pulse 97 97 100 Oximetry 01/06/20 01/06/20 01/06/20 11:00 11:48 12:00 Temperature 98.7 F Pulse Rate 75 64 Pulse Rate [ Bilateral] Pulse Rate [ From Monitor] Respiratory 12 Rate Respiratory Rate [Bilateral ] Blood Pressure 129/69 143/65 O2 Sat by Pulse 95 100 Oximetry Constitutional: no acute distress, alert, other (elderly obese AAM with mildly i ncrerased respiratory effort at rest on MVS) Eyes: non-icteric ENT: oropharynx moist, other (ETT 24 cm KOLBY) Neck: supple, no lymphadenopathy, no JVD Effort: mildly labored Ascultation: Bilateral: diminished breath sounds, rhonchi, other (diminished bibasilar air entry) Percussion: Bilateral: not dull Cardiovascular: regular rate and rhythm, other (S1,S2) Gastrointestinal: normoactive bowel sounds, soft, non-tender, other (protuberant) Integumentary: rash (stasis dermatyitis) Extremities: no cyanosis, pink and warm, pulses normal, no ischemia or petechiae, edema (trace) Neurologic: normal mental status, non-focal exam, pupils equal and round, CN II- XII normal, motor strength normal and (obeys simple commands) Psychiatric: other (unable to assess re: AQMS) CBC and BMP: 01/08/20 08:03 01/08/20 08:03 ABG, PT/INR, D-dimer: ABG ABG pH 7.428 pH Units (7.350-7.450) 01/06/20 03:50 ABG pCO2 46.6 mm Hg 01/06/20 03:50 ABG pO2 76.2 mm Hg (80.0-90.0) L 01/06/20 03:50 ABG O2 Saturation 96.1 % (95.0-99.0) 01/06/20 03:50 PT/INR, D-dimer PT 14.0 Sec. (12.2-14.9) 12/18/19 14:45 INR 1.10 (0.87-1.13) 12/18/19 14:45 D-Dimer 534.45 ng/mlDDU (0-234) H 12/18/19 14:45 Abnormal lab findings: Abnormal Labs 0612/18/19 12/18/19 12:23 14:45 14:45 WBC RBC Hgb 10.4 L Hct 35.2 L MCV MCH 25 L MCHC 30 L RDW 18.8 H Plt Count Lymph % (Auto) [place] % (Auto) 11.6 H Eos % (Auto) 4.8 H Lymph # [place] # 1.0 H Eos # Seg Neutrophils % Monocytes % (Manual) Monocytes # (Manual) D-Dimer ABG pH ABG pO2 ABG HCO3 ABG O2 Saturation ABG Base Excess ABG Hemoglobin Oxyhemoglobin Sodium Potassium Chloride Carbon Dioxide BUN Creatinine Glucose POC Glucose 328 H Lactic Acid Calcium Magnesium AST ALT Lactate Dehydrogenase Total Creatine Kinase 40 L C-Reactive Protein Albumin Urine WBC (Auto) Urine Total Protein Digoxin Salicylates Acetaminophen 12/18/19 12/18/19 12/18/19 14:45 14:45 14:45 WBC RBC Hgb Hct MCV MCH MCHC RDW Plt Count Lymph % (Auto) [place] % (Auto) Eos % (Auto) Lymph # [place] # Eos # Seg Neutrophils % Monocytes % (Manual) Monocytes # (Manual) D-Dimer 534.45 H ABG pH ABG pO2 ABG HCO3 ABG O2 Saturation ABG Base Excess ABG Hemoglobin Oxyhemoglobin Sodium 156 H Potassium Chloride 112.3 H Carbon Dioxide 31 H BUN 32 H Creatinine Glucose 328 H POC Glucose Lactic Acid Calcium Magnesium AST ALT Lactate Dehydrogenase 235 H Total Creatine Kinase C-Reactive Protein 8.50 H Albumin 3.6 L Urine WBC (Auto) Urine Total Protein Digoxin 0.3 L Salicylates < 0.3 L Acetaminophen 12/18/19 12/18/19 12/18/19 14:45 14:45 16:00 WBC RBC Hgb Hct MCV MCH MCHC RDW Plt Count Lymph % (Auto) [place] % (Auto) Eos % (Auto) Lymph # [place] # Eos # Seg Neutrophils % Monocytes % (Manual) Monocytes # (Manual) D-Dimer ABG pH ABG pO2 69.8 L ABG HCO3 31.8 H ABG O2 Saturation ABG Base Excess 5.4 H ABG Hemoglobin 10.0 L Oxyhemoglobin 92.9 L Sodium Potassium Chloride Carbon Dioxide BUN Creatinine Glucose 314 H POC Glucose Lactic Acid Calcium Magnesium AST ALT Lactate Dehydrogenase 236 H Total Creatine Kinase C-Reactive Protein 8.40 H Albumin Urine WBC (Auto) Urine Total Protein Digoxin Salicylates Acetaminophen < 5.0 L 12/18/19 12/18/19 12/18/19 16:35 18:30 22:56 WBC RBC Hgb Hct MCV MCH MCHC RDW Plt Count Lymph % (Auto) [place] % (Auto) Eos % (Auto) Lymph # [place] # Eos # Seg Neutrophils % Monocytes % (Manual) Monocytes # (Manual) D-Dimer ABG pH ABG pO2 ABG HCO3 ABG O2 Saturation ABG Base Excess ABG Hemoglobin Oxyhemoglobin Sodium Potassium Chloride Carbon Dioxide BUN Creatinine Glucose POC Glucose 310 H 353 H Lactic Acid 2.50 H* Calcium Magnesium AST ALT Lactate Dehydrogenase Total Creatine Kinase C-Reactive Protein Albumin Urine WBC (Auto) Urine Total Protein Digoxin Salicylates Acetaminophen 12/19/19 12/19/19 12/19/19 04:13 04:13 06:00 WBC RBC Hgb 10.0 L Hct 34.2 L MCV MCH 25 L MCHC 29 L RDW 19.0 H Plt Count Lymph % (Auto) [place] % (Auto) 10.1 H Eos % (Auto) Lymph # [place] # 1.1 H Eos # Seg Neutrophils % 71.8 H Monocytes % (Manual) Monocytes # (Manual) D-Dimer ABG pH ABG pO2 186.5 H ABG HCO3 27.8 H ABG O2 Saturation 99.1 H ABG Base Excess ABG Hemoglobin 10.4 L Oxyhemoglobin Sodium 157 H Potassium Chloride 119.1 H Carbon Dioxide BUN 26 H Creatinine Glucose 302 H POC Glucose Lactic Acid Calcium 7.9 L Magnesium AST 85 H ALT 61 H Lactate Dehydrogenase Total Creatine Kinase C-Reactive Protein Albumin 3.0 L Urine WBC (Auto) Urine Total Protein Digoxin Salicylates Acetaminophen 12/19/19 12/19/19 12/19/19 08:30 11:55 16:50 WBC RBC Hgb Hct MCV MCH MCHC RDW Plt Count Lymph % (Auto) [place] % (Auto) Eos % (Auto) Lymph # [place] # Eos # Seg Neutrophils % Monocytes % (Manual) Monocytes # (Manual) D-Dimer ABG pH ABG pO2 ABG HCO3 ABG O2 Saturation ABG Base Excess ABG Hemoglobin Oxyhemoglobin Sodium Potassium Chloride Carbon Dioxide BUN Creatinine Glucose POC Glucose 264 H 251 H Lactic Acid Calcium Magnesium AST ALT Lactate Dehydrogenase Total Creatine Kinase C-Reactive Protein Albumin Urine WBC (Auto) 7.0 H Urine Total Protein Digoxin Salicylates Acetaminophen 0612/19/19 12/20/19 17:41 23:42 03:35 WBC RBC Hgb Hct MCV MCH MCHC RDW Plt Count Lymph % (Auto) [place] % (Auto) Eos % (Auto) Lymph # [place] # Eos # Seg Neutrophils % Monocytes % (Manual) Monocytes # (Manual) D-Dimer ABG pH ABG pO2 ABG HCO3 27.7 H ABG O2 Saturation ABG Base Excess ABG Hemoglobin 11.6 L Oxyhemoglobin 94.9 L Sodium Potassium Chloride Carbon Dioxide BUN Creatinine Glucose POC Glucose 180 H 205 H Lactic Acid Calcium Magnesium AST ALT Lactate Dehydrogenase Total Creatine Kinase C-Reactive Protein Albumin Urine WBC (Auto) Urine Total Protein Digoxin Salicylates Acetaminophen 12/20/19 12/20/19 12/20/19 04:45 04:45 05:27 WBC RBC Hgb 9.4 L Hct 31.4 L MCV MCH 25 L MCHC 30 L RDW 19.4 H Plt Count Lymph % (Auto) [place] % (Auto) 10.2 H Eos % (Auto) 6.0 H Lymph # 0.9 L [place] # Eos # Seg Neutrophils % Monocytes % (Manual) Monocytes # (Manual) D-Dimer ABG pH ABG pO2 ABG HCO3 ABG O2 Saturation ABG Base Excess ABG Hemoglobin Oxyhemoglobin Sodium 153 H Potassium Chloride 114.6 H Carbon Dioxide BUN Creatinine Glucose 170 H POC Glucose 188 H Lactic Acid Calcium 7.9 L Magnesium AST ALT Lactate Dehydrogenase Total Creatine Kinase C-Reactive Protein Albumin Urine WBC (Auto) Urine Total Protein Digoxin Salicylates Acetaminophen 12/20/19 12/20/19 12/21/19 12:26 18:20 00:20 WBC RBC Hgb Hct MCV MCH MCHC RDW Plt Count Lymph % (Auto) [place] % (Auto) Eos % (Auto) Lymph # [place] # Eos # Seg Neutrophils % Monocytes % (Manual) Monocytes # (Manual) D-Dimer ABG pH ABG pO2 ABG HCO3 ABG O2 Saturation ABG Base Excess ABG Hemoglobin Oxyhemoglobin Sodium Potassium Chloride Carbon Dioxide BUN Creatinine Glucose POC Glucose 200 H 263 H 218 H Lactic Acid Calcium Magnesium AST ALT Lactate Dehydrogenase Total Creatine Kinase C-Reactive Protein Albumin Urine WBC (Auto) Urine Total Protein Digoxin Salicylates Acetaminophen 12/21/19 12/21/19 12/21/19 04:38 05:26 12:35 WBC RBC Hgb Hct MCV MCH MCHC RDW Plt Count Lymph % (Auto) [place] % (Auto) Eos % (Auto) Lymph # [place] # Eos # Seg Neutrophils % Monocytes % (Manual) Monocytes # (Manual) D-Dimer ABG pH ABG pO2 ABG HCO3 ABG O2 Saturation ABG Base Excess ABG Hemoglobin Oxyhemoglobin Sodium 149 H Potassium 3.5 L Chloride 110.5 H Carbon Dioxide BUN Creatinine Glucose 158 H POC Glucose 193 H 193 H Lactic Acid Calcium Magnesium AST ALT Lactate Dehydrogenase Total Creatine Kinase C-Reactive Protein Albumin Urine WBC (Auto) Urine Total Protein Digoxin Salicylates Acetaminophen 12/21/19 12/22/19 12/22/19 18:29 00:03 05:15 WBC RBC Hgb 10.3 L Hct 34.7 L MCV MCH 25 L MCHC 30 L RDW 19.4 H Plt Count Lymph % (Auto) 9.0 L [place] % (Auto) 12.3 H Eos % (Auto) 5.0 H Lymph # 0.5 L [place] # Eos # Seg Neutrophils % 73.2 H Monocytes % (Manual) Monocytes # (Manual) D-Dimer ABG pH ABG pO2 ABG HCO3 ABG O2 Saturation ABG Base Excess ABG Hemoglobin Oxyhemoglobin Sodium Potassium Chloride Carbon Dioxide BUN Creatinine Glucose POC Glucose 186 H 143 H Lactic Acid Calcium Magnesium AST ALT Lactate Dehydrogenase Total Creatine Kinase C-Reactive Protein Albumin Urine WBC (Auto) Urine Total Protein Digoxin Salicylates Acetaminophen 12/22/19 12/22/19 12/22/19 05:15 06:02 12:13 WBC RBC Hgb Hct MCV MCH MCHC RDW Plt Count Lymph % (Auto) [place] % (Auto) Eos % (Auto) Lymph # [place] # Eos # Seg Neutrophils % Monocytes % (Manual) Monocytes # (Manual) D-Dimer ABG pH ABG pO2 ABG HCO3 ABG O2 Saturation ABG Base Excess ABG Hemoglobin Oxyhemoglobin Sodium 152 H Potassium Chloride 113.5 H Carbon Dioxide BUN Creatinine Glucose 126 H POC Glucose 144 H 159 H Lactic Acid Calcium Magnesium AST ALT Lactate Dehydrogenase Total Creatine Kinase C-Reactive Protein Albumin Urine WBC (Auto) Urine Total Protein Digoxin Salicylates Acetaminophen 12/22/19 12/22/19 12/23/19 18:03 23:50 05:27 WBC RBC Hgb Hct MCV MCH MCHC RDW Plt Count Lymph % (Auto) [place] % (Auto) Eos % (Auto) Lymph # [place] # Eos # Seg Neutrophils % Monocytes % (Manual) Monocytes # (Manual) D-Dimer ABG pH ABG pO2 ABG HCO3 ABG O2 Saturation ABG Base Excess ABG Hemoglobin Oxyhemoglobin Sodium Potassium Chloride Carbon Dioxide BUN Creatinine Glucose POC Glucose 140 H 227 H 185 H Lactic Acid Calcium Magnesium AST ALT Lactate Dehydrogenase Total Creatine Kinase C-Reactive Protein Albumin Urine WBC (Auto) Urine Total Protein Digoxin Salicylates Acetaminophen 12/23/19 12/23/19 12/23/19 12:13 16:05 16:40 WBC RBC Hgb Hct MCV MCH MCHC RDW Plt Count Lymph % (Auto) [place] % (Auto) Eos % (Auto) Lymph # [place] # Eos # Seg Neutrophils % Monocytes % (Manual) Monocytes # (Manual) D-Dimer ABG pH 7.259 L ABG pO2 76.2 L ABG HCO3 30.6 H ABG O2 Saturation 94.6 L ABG Base Excess ABG Hemoglobin 11.5 L Oxyhemoglobin 92.2 L Sodium 163 H* D Potassium 3.4 L Chloride 120.1 H Carbon Dioxide BUN Creatinine Glucose 162 H POC Glucose 132 H Lactic Acid Calcium Magnesium AST ALT Lactate Dehydrogenase Total Creatine Kinase C-Reactive Protein Albumin Urine WBC (Auto) Urine Total Protein Digoxin Salicylates Acetaminophen 12/23/19 12/24/19 12/24/19 17:53 00:48 04:20 WBC RBC Hgb Hct MCV MCH MCHC RDW Plt Count Lymph % (Auto) [place] % (Auto) Eos % (Auto) Lymph # [place] # Eos # Seg Neutrophils % Monocytes % (Manual) Monocytes # (Manual) D-Dimer ABG pH ABG pO2 ABG HCO3 30.4 H ABG O2 Saturation ABG Base Excess 3.9 H ABG Hemoglobin 10.3 L Oxyhemoglobin 94.4 L Sodium Potassium Chloride Carbon Dioxide BUN Creatinine Glucose POC Glucose 180 H 174 H Lactic Acid Calcium Magnesium AST ALT Lactate Dehydrogenase Total Creatine Kinase C-Reactive Protein Albumin Urine WBC (Auto) Urine Total Protein Digoxin Salicylates Acetaminophen 12/24/19 12/24/19 12/24/19 04:53 04:53 11:50 WBC RBC Hgb 9.7 L Hct 33.2 L MCV MCH 25 L MCHC 29 L RDW 20.1 H Plt Count Lymph % (Auto) [place] % (Auto) Eos % (Auto) Lymph # [place] # Eos # Seg Neutrophils % Monocytes % (Manual) 15.0 H Monocytes # (Manual) 0.9 H D-Dimer ABG pH ABG pO2 ABG HCO3 ABG O2 Saturation ABG Base Excess ABG Hemoglobin Oxyhemoglobin Sodium 163 H* Potassium 3.2 L Chloride 122.6 H Carbon Dioxide BUN Creatinine Glucose 168 H POC Glucose 190 H Lactic Acid Calcium Magnesium AST ALT Lactate Dehydrogenase Total Creatine Kinase C-Reactive Protein Albumin Urine WBC (Auto) Urine Total Protein Digoxin Salicylates Acetaminophen 12/24/19 12/24/19 12/24/19 15:00 16:28 21:15 WBC RBC Hgb Hct MCV MCH MCHC RDW Plt Count Lymph % (Auto) [place] % (Auto) Eos % (Auto) Lymph # [place] # Eos # Seg Neutrophils % Monocytes % (Manual) Monocytes # (Manual) D-Dimer ABG pH ABG pO2 ABG HCO3 ABG O2 Saturation ABG Base Excess ABG Hemoglobin Oxyhemoglobin Sodium 165 H* D 163 H* Potassium Chloride Carbon Dioxide BUN Creatinine Glucose POC Glucose 160 H Lactic Acid Calcium Magnesium AST ALT Lactate Dehydrogenase Total Creatine Kinase C-Reactive Protein Albumin Urine WBC (Auto) Urine Total Protein Digoxin Salicylates Acetaminophen 12/25/19 12/25/19 12/25/19 00:31 05:38 05:46 WBC RBC Hgb 9.7 L Hct 32.5 L MCV MCH 25 L MCHC 30 L RDW 19.4 H Plt Count Lymph % (Auto) [place] % (Auto) Eos % (Auto) Lymph # [place] # Eos # Seg Neutrophils % Monocytes % (Manual) Monocytes # (Manual) D-Dimer ABG pH ABG pO2 ABG HCO3 ABG O2 Saturation ABG Base Excess ABG Hemoglobin Oxyhemoglobin Sodium Potassium Chloride Carbon Dioxide BUN Creatinine Glucose POC Glucose 182 H 194 H Lactic Acid Calcium Magnesium AST ALT Lactate Dehydrogenase Total Creatine Kinase C-Reactive Protein Albumin Urine WBC (Auto) Urine Total Protein Digoxin Salicylates Acetaminophen 12/25/19 12/25/19 12/25/19 05:46 11:35 11:38 WBC RBC Hgb Hct MCV MCH MCHC RDW Plt Count Lymph % (Auto) [place] % (Auto) Eos % (Auto) Lymph # [place] # Eos # Seg Neutrophils % Monocytes % (Manual) Monocytes # (Manual) D-Dimer ABG pH 7.330 L ABG pO2 65.7 L ABG HCO3 32.6 H ABG O2 Saturation 92.5 L ABG Base Excess 5.3 H ABG Hemoglobin 10.4 L Oxyhemoglobin 90.0 L Sodium 166 H* Potassium 2.9 L* Chloride 124.5 H Carbon Dioxide BUN Creatinine Glucose 190 H POC Glucose 192 H Lactic Acid Calcium Magnesium AST ALT Lactate Dehydrogenase Total Creatine Kinase C-Reactive Protein Albumin Urine WBC (Auto) Urine Total Protein Digoxin Salicylates Acetaminophen 12/25/19 12/25/19 12/25/19 13:01 16:45 17:20 WBC RBC Hgb Hct MCV MCH MCHC RDW Plt Count Lymph % (Auto) [place] % (Auto) Eos % (Auto) Lymph # [place] # Eos # Seg Neutrophils % Monocytes % (Manual) Monocytes # (Manual) D-Dimer ABG pH 7.296 L ABG pO2 101.5 H ABG HCO3 33.2 H ABG O2 Saturation ABG Base Excess 5.3 H ABG Hemoglobin 9.6 L Oxyhemoglobin 94.6 L Sodium 174 H* Potassium Chloride Carbon Dioxide BUN Creatinine Glucose POC Glucose Lactic Acid Calcium Magnesium AST ALT Lactate Dehydrogenase Total Creatine Kinase C-Reactive Protein Albumin Urine WBC (Auto) Urine Total Protein < 4 L Digoxin Salicylates Acetaminophen 12/25/19 12/25/19 12/26/19 17:48 18:50 00:43 WBC RBC Hgb Hct MCV MCH MCHC RDW Plt Count Lymph % (Auto) [place] % (Auto) Eos % (Auto) Lymph # [place] # Eos # Seg Neutrophils % Monocytes % (Manual) Monocytes # (Manual) D-Dimer ABG pH ABG pO2 ABG HCO3 ABG O2 Saturation ABG Base Excess ABG Hemoglobin Oxyhemoglobin Sodium 166 H* 164 H* Potassium Chloride 127.3 H Carbon Dioxide BUN Creatinine Glucose 220 H POC Glucose 252 H Lactic Acid Calcium Magnesium AST ALT Lactate Dehydrogenase Total Creatine Kinase C-Reactive Protein Albumin Urine WBC (Auto) Urine Total Protein Digoxin Salicylates Acetaminophen 12/26/19 12/26/19 12/26/19 05:31 08:07 08:07 WBC 4.3 L RBC Hgb 9.6 L Hct 32.1 L MCV MCH 26 L MCHC 30 L RDW 20.5 H Plt Count Lymph % (Auto) [place] % (Auto) Eos % (Auto) Lymph # [place] # Eos # Seg Neutrophils % Monocytes % (Manual) Monocytes # (Manual) D-Dimer ABG pH ABG pO2 ABG HCO3 ABG O2 Saturation ABG Base Excess ABG Hemoglobin Oxyhemoglobin Sodium 162 H* Potassium Chloride 122.1 H Carbon Dioxide BUN Creatinine Glucose 247 H POC Glucose 187 H Lactic Acid Calcium Magnesium AST ALT Lactate Dehydrogenase Total Creatine Kinase C-Reactive Protein Albumin Urine WBC (Auto) Urine Total Protein Digoxin Salicylates Acetaminophen 12/26/19 12/26/19 12/26/19 08:07 12:20 16:25 WBC RBC Hgb Hct MCV MCH MCHC RDW Plt Count Lymph % (Auto) [place] % (Auto) Eos % (Auto) Lymph # [place] # Eos # Seg Neutrophils % Monocytes % (Manual) Monocytes # (Manual) D-Dimer ABG pH 7.290 L ABG pO2 73.2 L ABG HCO3 33.2 H ABG O2 Saturation 94.9 L ABG Base Excess 5.2 H ABG Hemoglobin 10.0 L Oxyhemoglobin 92.5 L Sodium 159 H Potassium Chloride Carbon Dioxide BUN Creatinine Glucose POC Glucose 234 H Lactic Acid Calcium Magnesium AST ALT Lactate Dehydrogenase Total Creatine Kinase C-Reactive Protein Albumin Urine WBC (Auto) Urine Total Protein Digoxin Salicylates Acetaminophen 12/26/19 12/26/19 12/26/19 17:33 22:35 23:30 WBC RBC Hgb Hct MCV MCH MCHC RDW Plt Count Lymph % (Auto) [place] % (Auto) Eos % (Auto) Lymph # [place] # Eos # Seg Neutrophils % Monocytes % (Manual) Monocytes # (Manual) D-Dimer ABG pH ABG pO2 ABG HCO3 ABG O2 Saturation ABG Base Excess ABG Hemoglobin Oxyhemoglobin Sodium Potassium Chloride Carbon Dioxide BUN Creatinine Glucose POC Glucose 244 H 208 H 287 H Lactic Acid Calcium Magnesium AST ALT Lactate Dehydrogenase Total Creatine Kinase C-Reactive Protein Albumin Urine WBC (Auto) Urine Total Protein Digoxin Salicylates Acetaminophen 12/27/19 12/27/19 12/27/19 03:48 03:48 03:48 WBC RBC Hgb 10.1 L Hct 35.4 L MCV MCH 25 L MCHC 29 L RDW 20.1 H Plt Count Lymph % (Auto) [place] % (Auto) Eos % (Auto) Lymph # [place] # Eos # Seg Neutrophils % Monocytes % (Manual) Monocytes # (Manual) D-Dimer ABG pH ABG pO2 ABG HCO3 ABG O2 Saturation ABG Base Excess ABG Hemoglobin Oxyhemoglobin Sodium 160 H Potassium Chloride 118.8 H Carbon Dioxide 33 H BUN Creatinine Glucose 217 H POC Glucose Lactic Acid Calcium Magnesium 2.70 H AST ALT Lactate Dehydrogenase Total Creatine Kinase C-Reactive Protein Albumin Urine WBC (Auto) Urine Total Protein Digoxin Salicylates Acetaminophen 12/27/19 12/27/19 12/27/19 05:50 11:58 16:05 WBC RBC Hgb Hct MCV MCH MCHC RDW Plt Count Lymph % (Auto) [place] % (Auto) Eos % (Auto) Lymph # [place] # Eos # Seg Neutrophils % Monocytes % (Manual) Monocytes # (Manual) D-Dimer ABG pH 7.180 L* ABG pO2 73.6 L ABG HCO3 34.8 H ABG O2 Saturation 92.7 L ABG Base Excess 3.8 H ABG Hemoglobin 12.0 L Oxyhemoglobin 90.2 L Sodium Potassium Chloride Carbon Dioxide BUN Creatinine Glucose POC Glucose 224 H 218 H Lactic Acid Calcium Magnesium AST ALT Lactate Dehydrogenase Total Creatine Kinase C-Reactive Protein Albumin Urine WBC (Auto) Urine Total Protein Digoxin Salicylates Acetaminophen 12/27/19 12/27/19 12/27/19 18:05 19:50 21:53 WBC RBC Hgb Hct MCV MCH MCHC RDW Plt Count Lymph % (Auto) [place] % (Auto) Eos % (Auto) Lymph # [place] # Eos # Seg Neutrophils % Monocytes % (Manual) Monocytes # (Manual) D-Dimer ABG pH 7.328 L ABG pO2 49.9 L ABG HCO3 33.3 H ABG O2 Saturation 87.1 L ABG Base Excess 5.7 H ABG Hemoglobin 11.2 L Oxyhemoglobin 84.8 L Sodium Potassium Chloride Carbon Dioxide BUN Creatinine Glucose POC Glucose 214 H 178 H Lactic Acid Calcium Magnesium AST ALT Lactate Dehydrogenase Total Creatine Kinase C-Reactive Protein Albumin Urine WBC (Auto) Urine Total Protein Digoxin Salicylates Acetaminophen 12/28/19 12/28/19 12/28/19 00:42 04:37 04:37 WBC RBC Hgb 9.8 L Hct 33.5 L MCV MCH 25 L MCHC 29 L RDW 21.1 H Plt Count Lymph % (Auto) [place] % (Auto) Eos % (Auto) Lymph # [place] # Eos # Seg Neutrophils % Monocytes % (Manual) Monocytes # (Manual) D-Dimer ABG pH ABG pO2 ABG HCO3 ABG O2 Saturation ABG Base Excess ABG Hemoglobin Oxyhemoglobin Sodium 157 H Potassium 3.4 L Chloride 117.5 H Carbon Dioxide BUN Creatinine Glucose 193 H POC Glucose 157 H Lactic Acid Calcium Magnesium AST ALT Lactate Dehydrogenase Total Creatine Kinase C-Reactive Protein Albumin Urine WBC (Auto) Urine Total Protein Digoxin Salicylates Acetaminophen 12/28/19 12/28/19 12/28/19 04:52 05:19 12:05 WBC RBC Hgb Hct MCV MCH MCHC RDW Plt Count Lymph % (Auto) [place] % (Auto) Eos % (Auto) Lymph # [place] # Eos # Seg Neutrophils % Monocytes % (Manual) Monocytes # (Manual) D-Dimer ABG pH ABG pO2 51.7 L ABG HCO3 28.7 H ABG O2 Saturation 89.9 L ABG Base Excess 4.1 H ABG Hemoglobin 9.7 L Oxyhemoglobin 87.7 L Sodium Potassium Chloride Carbon Dioxide BUN Creatinine Glucose POC Glucose 202 H 248 H Lactic Acid Calcium Magnesium AST ALT Lactate Dehydrogenase Total Creatine Kinase C-Reactive Protein Albumin Urine WBC (Auto) Urine Total Protein Digoxin Salicylates Acetaminophen 12/28/19 12/28/19 12/28/19 18:11 21:15 23:22 WBC RBC Hgb Hct MCV MCH MCHC RDW Plt Count Lymph % (Auto) [place] % (Auto) Eos % (Auto) Lymph # [place] # Eos # Seg Neutrophils % Monocytes % (Manual) Monocytes # (Manual) D-Dimer ABG pH ABG pO2 ABG HCO3 ABG O2 Saturation ABG Base Excess ABG Hemoglobin Oxyhemoglobin Sodium Potassium Chloride Carbon Dioxide BUN Creatinine Glucose POC Glucose 226 H 217 H 227 H Lactic Acid Calcium Magnesium AST ALT Lactate Dehydrogenase Total Creatine Kinase C-Reactive Protein Albumin Urine WBC (Auto) Urine Total Protein Digoxin Salicylates Acetaminophen 12/29/19 12/29/19 12/29/19 04:09 04:59 04:59 WBC 11.1 H RBC Hgb 9.3 L Hct 31.1 L MCV 81 L MCH 24 L MCHC 30 L RDW 19.9 H Plt Count Lymph % (Auto) [place] % (Auto) Eos % (Auto) Lymph # [place] # Eos # Seg Neutrophils % Monocytes % (Manual) Monocytes # (Manual) D-Dimer ABG pH 7.473 H ABG pO2 126.1 H ABG HCO3 29.2 H ABG O2 Saturation ABG Base Excess 5.1 H ABG Hemoglobin 8.4 L Oxyhemoglobin Sodium 157 H Potassium 3.2 L Chloride 118.2 H Carbon Dioxide BUN Creatinine 1.7 H Glucose 229 H POC Glucose Lactic Acid Calcium Magnesium AST ALT Lactate Dehydrogenase Total Creatine Kinase C-Reactive Protein Albumin Urine WBC (Auto) Urine Total Protein Digoxin Salicylates Acetaminophen 12/29/19 12/29/19 12/29/19 05:15 12:13 17:59 WBC RBC Hgb Hct MCV MCH MCHC RDW Plt Count Lymph % (Auto) [place] % (Auto) Eos % (Auto) Lymph # [place] # Eos # Seg Neutrophils % Monocytes % (Manual) Monocytes # (Manual) D-Dimer ABG pH ABG pO2 ABG HCO3 ABG O2 Saturation ABG Base Excess ABG Hemoglobin Oxyhemoglobin Sodium Potassium Chloride Carbon Dioxide BUN Creatinine Glucose POC Glucose 221 H 392 H 365 H Lactic Acid Calcium Magnesium AST ALT Lactate Dehydrogenase Total Creatine Kinase C-Reactive Protein Albumin Urine WBC (Auto) Urine Total Protein Digoxin Salicylates Acetaminophen 12/29/19 12/29/19 12/30/19 20:25 23:38 04:45 WBC RBC Hgb Hct MCV MCH MCHC RDW Plt Count Lymph % (Auto) [place] % (Auto) Eos % (Auto) Lymph # [place] # Eos # Seg Neutrophils % Monocytes % (Manual) Monocytes # (Manual) D-Dimer ABG pH 7.261 L 7.343 L ABG pO2 60.3 L 54.3 L ABG HCO3 32.1 H 30.9 H ABG O2 Saturation 87.6 L 88.3 L ABG Base Excess 3.7 H 4.0 H ABG Hemoglobin 9.7 L 11.6 L Oxyhemoglobin 85.2 L 86.0 L Sodium Potassium Chloride Carbon Dioxide BUN Creatinine Glucose POC Glucose 402 H Lactic Acid Calcium Magnesium AST ALT Lactate Dehydrogenase Total Creatine Kinase C-Reactive Protein Albumin Urine WBC (Auto) Urine Total Protein Digoxin Salicylates Acetaminophen 12/30/19 12/30/19 12/30/19 05:06 05:06 05:06 WBC 11.7 H RBC Hgb 9.4 L Hct 32.4 L MCV 83 L MCH 24 L MCHC 29 L RDW 20.2 H Plt Count Lymph % (Auto) [place] % (Auto) Eos % (Auto) Lymph # [place] # Eos # Seg Neutrophils % Monocytes % (Manual) Monocytes # (Manual) D-Dimer ABG pH ABG pO2 ABG HCO3 ABG O2 Saturation ABG Base Excess ABG Hemoglobin Oxyhemoglobin Sodium 159 H Potassium 3.2 L Chloride 120.1 H Carbon Dioxide 31 H BUN Creatinine 1.9 H Glucose 404 H POC Glucose Lactic Acid Calcium Magnesium 2.60 H AST ALT Lactate Dehydrogenase Total Creatine Kinase C-Reactive Protein Albumin Urine WBC (Auto) Urine Total Protein Digoxin Salicylates Acetaminophen 12/30/19 12/30/19 12/30/19 06:26 12:29 13:44 WBC RBC Hgb Hct MCV MCH MCHC RDW Plt Count Lymph % (Auto) [place] % (Auto) Eos % (Auto) Lymph # [place] # Eos # Seg Neutrophils % Monocytes % (Manual) Monocytes # (Manual) D-Dimer ABG pH ABG pO2 ABG HCO3 ABG O2 Saturation ABG Base Excess ABG Hemoglobin Oxyhemoglobin Sodium Potassium Chloride Carbon Dioxide BUN Creatinine Glucose POC Glucose 399 H 469 H > 500 H Lactic Acid Calcium Magnesium AST ALT Lactate Dehydrogenase Total Creatine Kinase C-Reactive Protein Albumin Urine WBC (Auto) Urine Total Protein Digoxin Salicylates Acetaminophen 12/30/19 12/30/19 12/30/19 13:51 16:32 18:05 WBC RBC Hgb Hct MCV MCH MCHC RDW Plt Count Lymph % (Auto) [place] % (Auto) Eos % (Auto) Lymph # [place] # Eos # Seg Neutrophils % Monocytes % (Manual) Monocytes # (Manual) D-Dimer ABG pH ABG pO2 ABG HCO3 ABG O2 Saturation ABG Base Excess ABG Hemoglobin Oxyhemoglobin Sodium Potassium Chloride Carbon Dioxide BUN Creatinine Glucose POC Glucose > 500 H 445 H 429 H Lactic Acid Calcium Magnesium AST ALT Lactate Dehydrogenase Total Creatine Kinase C-Reactive Protein Albumin Urine WBC (Auto) Urine Total Protein Digoxin Salicylates Acetaminophen 12/30/19 12/30/19 12/31/19 21:42 Unknown 00:00 WBC RBC Hgb Hct MCV MCH MCHC RDW Plt Count Lymph % (Auto) [place] % (Auto) Eos % (Auto) Lymph # [place] # Eos # Seg Neutrophils % Monocytes % (Manual) Monocytes # (Manual) D-Dimer ABG pH ABG pO2 ABG HCO3 ABG O2 Saturation ABG Base Excess ABG Hemoglobin Oxyhemoglobin Sodium Potassium Chloride Carbon Dioxide BUN Creatinine Glucose 498 H POC Glucose 371 H 452 H Lactic Acid Calcium Magnesium AST ALT Lactate Dehydrogenase Total Creatine Kinase C-Reactive Protein Albumin Urine WBC (Auto) Urine Total Protein Digoxin Salicylates Acetaminophen 12/31/19 12/31/19 12/31/19 04:31 05:42 08:01 WBC RBC Hgb Hct MCV MCH MCHC RDW Plt Count Lymph % (Auto) [place] % (Auto) Eos % (Auto) Lymph # [place] # Eos # Seg Neutrophils % Monocytes % (Manual) Monocytes # (Manual) D-Dimer ABG pH 7.251 L ABG pO2 62.4 L ABG HCO3 31.1 H ABG O2 Saturation 88.7 L ABG Base Excess ABG Hemoglobin 8.7 L Oxyhemoglobin 86.4 L Sodium Potassium Chloride Carbon Dioxide BUN Creatinine Glucose POC Glucose 443 H 443 H Lactic Acid Calcium Magnesium AST ALT Lactate Dehydrogenase Total Creatine Kinase C-Reactive Protein Albumin Urine WBC (Auto) Urine Total Protein Digoxin Salicylates Acetaminophen 12/31/19 12/31/19 12/31/19 09:08 10:00 11:50 WBC RBC Hgb Hct MCV MCH MCHC RDW Plt Count Lymph % (Auto) [place] % (Auto) Eos % (Auto) Lymph # [place] # Eos # Seg Neutrophils % Monocytes % (Manual) Monocytes # (Manual) D-Dimer ABG pH 7.325 L ABG pO2 97.2 H ABG HCO3 30.1 H ABG O2 Saturation ABG Base Excess 3.4 H ABG Hemoglobin 8.3 L Oxyhemoglobin 94.7 L Sodium 151 H D Potassium 3.2 L Chloride 113.0 H Carbon Dioxide BUN 23 H Creatinine 1.8 H Glucose 373 H POC Glucose 465 H Lactic Acid Calcium Magnesium AST ALT Lactate Dehydrogenase Total Creatine Kinase C-Reactive Protein Albumin Urine WBC (Auto) Urine Total Protein Digoxin Salicylates Acetaminophen 12/31/19 12/31/19 12/31/19 12:25 13:33 18:30 WBC RBC Hgb Hct MCV MCH MCHC RDW Plt Count Lymph % (Auto) [place] % (Auto) Eos % (Auto) Lymph # [place] # Eos # Seg Neutrophils % Monocytes % (Manual) Monocytes # (Manual) D-Dimer ABG pH ABG pO2 ABG HCO3 ABG O2 Saturation ABG Base Excess ABG Hemoglobin Oxyhemoglobin Sodium Potassium Chloride Carbon Dioxide BUN Creatinine Glucose POC Glucose 379 H 311 H 349 H Lactic Acid Calcium Magnesium AST ALT Lactate Dehydrogenase Total Creatine Kinase C-Reactive Protein Albumin Urine WBC (Auto) Urine Total Protein Digoxin Salicylates Acetaminophen 12/31/19 12/31/19 01/01/20 22:29 23:30 02:58 WBC RBC Hgb Hct MCV MCH MCHC RDW Plt Count Lymph % (Auto) [place] % (Auto) Eos % (Auto) Lymph # [place] # Eos # Seg Neutrophils % Monocytes % (Manual) Monocytes # (Manual) D-Dimer ABG pH ABG pO2 ABG HCO3 ABG O2 Saturation ABG Base Excess ABG Hemoglobin Oxyhemoglobin Sodium Potassium Chloride Carbon Dioxide BUN Creatinine Glucose POC Glucose 256 H 266 H 248 H Lactic Acid Calcium Magnesium AST ALT Lactate Dehydrogenase Total Creatine Kinase C-Reactive Protein Albumin Urine WBC (Auto) Urine Total Protein Digoxin Salicylates Acetaminophen 01/01/20 01/01/20 01/01/20 04:19 06:56 10:52 WBC RBC Hgb Hct MCV MCH MCHC RDW Plt Count Lymph % (Auto) [place] % (Auto) Eos % (Auto) Lymph # [place] # Eos # Seg Neutrophils % Monocytes % (Manual) Monocytes # (Manual) D-Dimer ABG pH ABG pO2 90.7 H ABG HCO3 29.1 H ABG O2 Saturation ABG Base Excess 3.8 H ABG Hemoglobin 8.1 L Oxyhemoglobin 94.5 L Sodium Potassium Chloride Carbon Dioxide BUN Creatinine Glucose POC Glucose 303 H 244 H Lactic Acid Calcium Magnesium AST ALT Lactate Dehydrogenase Total Creatine Kinase C-Reactive Protein Albumin Urine WBC (Auto) Urine Total Protein Digoxin Salicylates Acetaminophen 01/01/20 01/01/20 01/01/20 13:39 14:49 18:42 WBC RBC Hgb Hct MCV MCH MCHC RDW Plt Count Lymph % (Auto) [place] % (Auto) Eos % (Auto) Lymph # [place] # Eos # Seg Neutrophils % Monocytes % (Manual) Monocytes # (Manual) D-Dimer ABG pH ABG pO2 ABG HCO3 ABG O2 Saturation ABG Base Excess ABG Hemoglobin Oxyhemoglobin Sodium 147 H Potassium Chloride 107.1 H Carbon Dioxide BUN 28 H Creatinine Glucose 207 H POC Glucose 263 H 188 H Lactic Acid Calcium Magnesium AST ALT Lactate Dehydrogenase Total Creatine Kinase C-Reactive Protein Albumin Urine WBC (Auto) Urine Total Protein Digoxin Salicylates Acetaminophen 01/02/20 01/02/20 01/02/20 02:22 03:58 05:00 WBC RBC 3.31 L Hgb 8.0 L Hct 26.9 L MCV 81 L MCH 24 L MCHC 30 L RDW 19.4 H Plt Count Lymph % (Auto) [place] % (Auto) 9.4 H Eos % (Auto) 11.2 H Lymph # [place] # Eos # 0.8 H Seg Neutrophils % Monocytes % (Manual) Monocytes # (Manual) D-Dimer ABG pH ABG pO2 63.0 L ABG HCO3 31.6 H ABG O2 Saturation 91.8 L ABG Base Excess 5.5 H ABG Hemoglobin 8.6 L Oxyhemoglobin 89.6 L Sodium Potassium Chloride Carbon Dioxide BUN Creatinine Glucose POC Glucose 196 H Lactic Acid Calcium Magnesium AST ALT Lactate Dehydrogenase Total Creatine Kinase C-Reactive Protein Albumin Urine WBC (Auto) Urine Total Protein Digoxin Salicylates Acetaminophen 01/02/20 01/02/20 01/02/20 05:40 10:26 13:57 WBC RBC Hgb Hct MCV MCH MCHC RDW Plt Count Lymph % (Auto) [place] % (Auto) Eos % (Auto) Lymph # [place] # Eos # Seg Neutrophils % Monocytes % (Manual) Monocytes # (Manual) D-Dimer ABG pH ABG pO2 ABG HCO3 ABG O2 Saturation ABG Base Excess ABG Hemoglobin Oxyhemoglobin Sodium Potassium Chloride Carbon Dioxide BUN Creatinine Glucose POC Glucose 189 H 157 H 178 H Lactic Acid Calcium Magnesium AST ALT Lactate Dehydrogenase Total Creatine Kinase C-Reactive Protein Albumin Urine WBC (Auto) Urine Total Protein Digoxin Salicylates Acetaminophen 01/02/20 01/03/20 01/03/20 21:27 03:12 05:26 WBC RBC Hgb Hct MCV MCH MCHC RDW Plt Count Lymph % (Auto) [place] % (Auto) Eos % (Auto) Lymph # [place] # Eos # Seg Neutrophils % Monocytes % (Manual) Monocytes # (Manual) D-Dimer ABG pH 7.473 H ABG pO2 109.6 H ABG HCO3 30.4 H ABG O2 Saturation ABG Base Excess 6.2 H ABG Hemoglobin 9.9 L Oxyhemoglobin Sodium Potassium Chloride Carbon Dioxide BUN Creatinine Glucose POC Glucose 131 H 133 H Lactic Acid Calcium Magnesium AST ALT Lactate Dehydrogenase Total Creatine Kinase C-Reactive Protein Albumin Urine WBC (Auto) Urine Total Protein Digoxin Salicylates Acetaminophen 01/03/20 01/03/20 01/03/20 05:40 05:40 15:01 WBC RBC 3.45 L Hgb 8.3 L Hct 27.3 L MCV 79 L MCH 24 L MCHC 30 L RDW 19.3 H Plt Count Lymph % (Auto) [place] % (Auto) Eos % (Auto) Lymph # [place] # Eos # Seg Neutrophils % Monocytes % (Manual) Monocytes # (Manual) D-Dimer ABG pH ABG pO2 ABG HCO3 ABG O2 Saturation ABG Base Excess ABG Hemoglobin Oxyhemoglobin Sodium 151 H Potassium Chloride 111.8 H Carbon Dioxide 31 H BUN 37 H Creatinine 1.8 H Glucose 187 H POC Glucose 164 H Lactic Acid Calcium Magnesium AST ALT Lactate Dehydrogenase Total Creatine Kinase C-Reactive Protein Albumin Urine WBC (Auto) Urine Total Protein Digoxin Salicylates Acetaminophen 01/03/20 01/03/20 01/04/20 18:15 22:45 02:11 WBC RBC Hgb Hct MCV MCH MCHC RDW Plt Count Lymph % (Auto) [place] % (Auto) Eos % (Auto) Lymph # [place] # Eos # Seg Neutrophils % Monocytes % (Manual) Monocytes # (Manual) D-Dimer ABG pH ABG pO2 ABG HCO3 ABG O2 Saturation ABG Base Excess ABG Hemoglobin Oxyhemoglobin Sodium Potassium Chloride Carbon Dioxide BUN Creatinine Glucose POC Glucose 184 H 176 H 206 H Lactic Acid Calcium Magnesium AST ALT Lactate Dehydrogenase Total Creatine Kinase C-Reactive Protein Albumin Urine WBC (Auto) Urine Total Protein Digoxin Salicylates Acetaminophen 01/04/20 01/04/20 01/04/20 03:16 05:15 10:53 WBC RBC Hgb Hct MCV MCH MCHC RDW Plt Count Lymph % (Auto) [place] % (Auto) Eos % (Auto) Lymph # [place] # Eos # Seg Neutrophils % Monocytes % (Manual) Monocytes # (Manual) D-Dimer ABG pH 7.282 L ABG pO2 73.2 L ABG HCO3 ABG O2 Saturation 94.5 L ABG Base Excess -6.4 L ABG Hemoglobin 10.9 L Oxyhemoglobin 92.1 L Sodium Potassium Chloride Carbon Dioxide BUN Creatinine Glucose POC Glucose 139 H 224 H Lactic Acid Calcium Magnesium AST ALT Lactate Dehydrogenase Total Creatine Kinase C-Reactive Protein Albumin Urine WBC (Auto) Urine Total Protein Digoxin Salicylates Acetaminophen 01/04/20 01/04/20 01/04/20 15:47 18:05 22:07 WBC RBC Hgb Hct MCV MCH MCHC RDW Plt Count Lymph % (Auto) [place] % (Auto) Eos % (Auto) Lymph # [place] # Eos # Seg Neutrophils % Monocytes % (Manual) Monocytes # (Manual) D-Dimer ABG pH ABG pO2 ABG HCO3 ABG O2 Saturation ABG Base Excess ABG Hemoglobin Oxyhemoglobin Sodium Potassium Chloride Carbon Dioxide BUN Creatinine Glucose POC Glucose 135 H 117 H 108 H Lactic Acid Calcium Magnesium AST ALT Lactate Dehydrogenase Total Creatine Kinase C-Reactive Protein Albumin Urine WBC (Auto) Urine Total Protein Digoxin Salicylates Acetaminophen 01/04/20 01/04/20 01/05/20 Unknown Unknown 02:04 WBC RBC 3.46 L Hgb 8.2 L Hct 27.8 L MCV 80 L MCH 24 L MCHC 30 L RDW 19.7 H Plt Count Lymph % (Auto) [place] % (Auto) Eos % (Auto) Lymph # [place] # Eos # Seg Neutrophils % Monocytes % (Manual) Monocytes # (Manual) D-Dimer ABG pH ABG pO2 ABG HCO3 ABG O2 Saturation ABG Base Excess ABG Hemoglobin Oxyhemoglobin Sodium 150 H Potassium Chloride 110 H Carbon Dioxide 32 H BUN 32 H Creatinine Glucose 309 H POC Glucose 140 H Lactic Acid Calcium Magnesium AST ALT Lactate Dehydrogenase Total Creatine Kinase C-Reactive Protein Albumin Urine WBC (Auto) Urine Total Protein Digoxin Salicylates Acetaminophen 01/05/20 01/05/20 01/05/20 03:31 03:36 03:36 WBC RBC 3.46 L Hgb 8.4 L Hct 26.9 L MCV 78 L MCH 24 L MCHC 31 L RDW 19.0 H Plt Count Lymph % (Auto) [place] % (Auto) Eos % (Auto) Lymph # [place] # Eos # Seg Neutrophils % Monocytes % (Manual) Monocytes # (Manual) D-Dimer ABG pH 7.454 H ABG pO2 113.0 H ABG HCO3 30.5 H ABG O2 Saturation ABG Base Excess 6.0 H ABG Hemoglobin 8.5 L Oxyhemoglobin Sodium 150 H Potassium Chloride 110.3 H Carbon Dioxide BUN 30 H Creatinine Glucose 148 H POC Glucose Lactic Acid Calcium Magnesium AST ALT Lactate Dehydrogenase Total Creatine Kinase C-Reactive Protein Albumin Urine WBC (Auto) Urine Total Protein Digoxin Salicylates Acetaminophen 01/05/20 01/05/20 01/05/20 05:21 09:56 11:45 WBC RBC Hgb Hct MCV MCH MCHC RDW Plt Count Lymph % (Auto) [place] % (Auto) Eos % (Auto) Lymph # [place] # Eos # Seg Neutrophils % Monocytes % (Manual) Monocytes # (Manual) D-Dimer ABG pH ABG pO2 ABG HCO3 ABG O2 Saturation ABG Base Excess ABG Hemoglobin Oxyhemoglobin Sodium Potassium Chloride Carbon Dioxide BUN Creatinine Glucose POC Glucose 142 H 129 H 174 H Lactic Acid Calcium Magnesium AST ALT Lactate Dehydrogenase Total Creatine Kinase C-Reactive Protein Albumin Urine WBC (Auto) Urine Total Protein Digoxin Salicylates Acetaminophen 01/05/20 01/05/20 01/05/20 13:30 14:00 17:41 WBC RBC Hgb Hct MCV MCH MCHC RDW Plt Count Lymph % (Auto) [place] % (Auto) Eos % (Auto) Lymph # [place] # Eos # Seg Neutrophils % Monocytes % (Manual) Monocytes # (Manual) D-Dimer ABG pH ABG pO2 ABG HCO3 ABG O2 Saturation ABG Base Excess ABG Hemoglobin Oxyhemoglobin Sodium Potassium Chloride Carbon Dioxide BUN 26 H Creatinine 1.6 H Glucose 302 H POC Glucose 168 H 136 H Lactic Acid Calcium Magnesium AST ALT Lactate Dehydrogenase Total Creatine Kinase C-Reactive Protein Albumin Urine WBC (Auto) Urine Total Protein Digoxin Salicylates Acetaminophen 01/05/20 01/05/20 01/06/20 20:38 23:32 03:50 WBC RBC Hgb Hct MCV MCH MCHC RDW Plt Count Lymph % (Auto) [place] % (Auto) Eos % (Auto) Lymph # [place] # Eos # Seg Neutrophils % Monocytes % (Manual) Monocytes # (Manual) D-Dimer ABG pH ABG pO2 76.2 L ABG HCO3 30.1 H ABG O2 Saturation ABG Base Excess 5.1 H ABG Hemoglobin 9.5 L Oxyhemoglobin 93.8 L Sodium Potassium Chloride Carbon Dioxide BUN Creatinine Glucose POC Glucose 124 H 163 H Lactic Acid Calcium Magnesium AST ALT Lactate Dehydrogenase Total Creatine Kinase C-Reactive Protein Albumin Urine WBC (Auto) Urine Total Protein Digoxin Salicylates Acetaminophen 01/06/20 01/06/20 01/06/20 04:09 04:58 04:58 WBC RBC Hgb 8.8 L Hct 28.7 L MCV 78 L MCH 24 L MCHC 31 L RDW 18.7 H Plt Count 522 H Lymph % (Auto) [place] % (Auto) Eos % (Auto) Lymph # [place] # Eos # Seg Neutrophils % Monocytes % (Manual) Monocytes # (Manual) D-Dimer ABG pH ABG pO2 ABG HCO3 ABG O2 Saturation ABG Base Excess ABG Hemoglobin Oxyhemoglobin Sodium 150 H D Potassium Chloride 109.3 H Carbon Dioxide BUN 25 H Creatinine Glucose 55 L POC Glucose 65 L Lactic Acid Calcium Magnesium AST ALT Lactate Dehydrogenase Total Creatine Kinase C-Reactive Protein Albumin Urine WBC (Auto) Urine Total Protein Digoxin Salicylates Acetaminophen 01/06/20 01/06/20 05:01 14:10 WBC RBC Hgb Hct MCV MCH MCHC RDW Plt Count Lymph % (Auto) [place] % (Auto) Eos % (Auto) Lymph # [place] # Eos # Seg Neutrophils % Monocytes % (Manual) Monocytes # (Manual) D-Dimer ABG pH ABG pO2 ABG HCO3 ABG O2 Saturation ABG Base Excess ABG Hemoglobin Oxyhemoglobin Sodium Potassium Chloride Carbon Dioxide BUN Creatinine Glucose POC Glucose 60 L 119 H Lactic Acid Calcium Magnesium AST ALT Lactate Dehydrogenase Total Creatine Kinase C-Reactive Protein Albumin Urine WBC (Auto) Urine Total Protein Digoxin Salicylates Acetaminophen Chest x-ray: other (none today) Allied health notes reviewed: nursing
--- NOTE | 2020-01-06 16:39 | Progress Note ---
Assessment and Plan Assessment and plan: 59-year-old male past medical history diastolic CHF, OHS, HTN, DM 2, hypothyroidism admitted with confusion after being found by a neighbor. On arrival patient was found to be lethargic, and in respiratory distress and hypoxic. Patient was intubated in the ER because of hypoxic respiratory failure. Also noted to be hypotensive, placed on pressor admitted to ICU. Patient is negative for COVID-19, being treated for bilateral pneumonia. JAGDEEP improved with IV fluid, ID and critical care following. Chest x-ray: Left lower lobe airspace disease CT chest: 1. Patchy bilateral nodular and consolidative airspace opacities which are nonspecific but likely related to the reported history of Covid. 2. Multiple enlarged partially visualized left supraclavicular and lower cervical chain lymph nodes. While these are nonspecific and may be reactive, a neoplastic process is possible, recommend short interval follow-up after patient recovers from the acute episode. / Acute hypoxic respiratory failure Likely from bilateral pneumonia and diastolic heart failure Patient intubated, placed on ventilatory support. critical care team consulted in ED. Patient is extubated, continue nebulizer breathing treatment and as needed biPAP We will also do a swallow eval / Sepsis with shock cont IV antibiotic therapy, IV fluid resuscitation therapy, monitor urine output every shift, maintain mean arterial blood pressure greater than or equal to 65, s/p IV pressor support. / Suspected 2019-nCoV infection -ruled out with 2 negative test / Diastolic CHF Preserved EF based on prior echocardiogram Monitor weight strict I's/O, daily weight, monitor urine output every shift, submental oxygen, blood pressure control. /JAGDEEP, due to vasomotor nephropathy, present on admission -Creatinine improving, -Likely due to severe sepsis and hypotension /hypernatremia, -due to dehydration and sepsis -change fluid to D5W - monitor BMP /Hypokalemia, replete / Diabetes type II Initiate tube feeding diet Sliding scale insulin, Accu-Chek, hypoglycemia protocol. / Hypothyroidism Synthroid therapy, supportive care. / Bilateral pneumonia Pneumonia protocol: IV antibiotic therapy with rocephin for total 7 days, pulse oximetry, /Cervical lymphadenopathy -Reactive versus infectious process versus malignancy -Need repeat scanning and further staging when medically more stable -Pulmonology and ID following /Ileus: Hold tube feeds / HTN (hypertension) -hold BP meds as patient is hypotensive Monitor blood pressure every shift, continue medical management. /History of obstructive sleep apnea -Patient currently on mechanical ventilation /Acute metabolic encephalopathy Secondary to hyponatremia. /Urinary retention, suspected in the ER -Patient having good urine output now, will hold any CT scan -Continue IV fluid / DVT prophylaxis SCD to bilateral lower extremities while in bed, prophylactic heparin 12/19/19: Negative for COVID-19, continue pressor and wean off as tolerated, continue IV antibiotic and follow cultures. 12/19: Weaned off from pressor, sodium 156>157>153 today, creatinine 1.4>1.2>1.0. Continue IV fluid. Wean off from vent as tolerated. Follow ID recommendation 12/20: Extubated today, continue to monitor in the ICU overnight if clinically stable with transfer out to [facility]/telemetry tomorrow a.m.. Sodium 149 today, continue IV fluid and monitor BMP. Swallow eval, PT OT eval. 2nd text for covid is negative 12/21: transfer to [facility], start on gentle hydration. mechanical soft diet 12/22: placed back on bipap, Na 163 - start on D5W, monitor bmp 12/23: spoke to sister, updated [id number], also discussed Pulmonary, will likely need LTAC. Obtain Nephrology due to persistent Hypernatremia. Will start on free water and continue to monitor. Remains of restriants for safety due to intermittent confusion. 12/24: Still with intermittent encephalopathy. Requiring restraints. Hypernatremia still persist continue hypotonic solution. Nephrology consulted. Free water started this morning will increase dose. Replace potassium as hypokalemia still persist 12/26/19: Clinically improving, BIPAP now PRN AND HS, Na improving, continue renal follow up. I have called [facility] in case they would like to transfer the patient tested previously requested. 12/26: Hypernatermia still persist, had pulled out NGT yesterday, Continue free water, Continue Bipap, [place] states he is not yet stable for transfer. Although from our critical care team this patient has been cleared for to be able to transfer. 12/27: Patient reintubated due to hypoxia. Continue current management as outlined by inspector final assembly conveyor line. Sodium is improving. Continue current management monitor ABG and intermittent chest x-ray. [facility] updated. Patient sister also updated. 12/28: Sepsis persist. Antibiotics adjusted.-start linezolid 600 mg IV q 12 hour. Will adjust insulin for better management of blood glucose. 12/29: Shock still persist Levophed adjusted upward. Baldemar advised patient not safe for travel at this time. Continue ventilatory support continue full support antibiotics adjusted by ID. Follow cultures 12/30: Still on the vent and pressors , Isolation secondary MRSA In sputum. 12/31: Continue current management, will need intermittent chest xray, adjust insulin For better blood glucose control. Check labs in am 01/01: KUB reviewed shows distended bowel with no no specific obstruction noted. We will hold tube feeds at this time place NG tube to low intermittent suction. Repeat chest x-ray in a.m. Hyponatremia is better kidney function appears to be improving continue to monitor. 01/02: Continue feeding tube to low intermittent suction over 500 residual came out in the last 16+ hours. Repeat blood culture per ID. Continue antibiotics. We will obtain the CT abdomen and pelvis without contrast as renal function is mildly increased today. Prognosis is guarded repeat imaging concerning for colon distention. Will defer to critical care if the fecal management system should be placed. 01/03: CT A/P and chest. IMPRESSION: 1. Predominantly dependent bilateral consolidative and groundglass changes throughout both lungs have worsened since the prior. There is a new small left pleural effusion as well. These findings could be seen in the setting of pulmonary edema with associated superimposed infectious process. There is no cardiomegaly. 2. Left cervical/supraclavicular adenopathy appears slightly increased. This is nonspecific. However, there are shoddy nodes throughout the retroperitoneum and within the pelvis, and the spleen is mildly enlarged. Taken together, these findings are concerning for lymphoproliferative process such as lymphoma. - Ultrasound guided Biopsy, also send peripheral smear. US guided biopsy ordered - add a second pressors 01/04: Awaiting biopsy, continue supportive care, Sodium stable and improving. Espinoza torre undergoing bronchoscopy today. 01/05: Continue supportive care, monitor sodium level, wean pressors as tolerated, Radiology unable to perform biopsy of Lymphnode while patient is on the vent per Radiology team. Baldemar updated of clinical status The high probability of a clinically significant, sudden or life threatening deterioration of the [renal, pulmonary] system(s) required my full and direct attention, intervention and personal management. The aggregate critical care time was [35] minutes. This time is in addition to time spent performing reported procedures but includes the following: [x] Data Review and interpretation [x] Patient assessment and monitoring of vital signs [x] Documentation [x] Medication orders and management History Interval history: Patient seen and examined, still on full ventilatory support, no clinical change at this time. Remains on pressors, underwent Bronchoscopy Hospitalist Physical - Physical exam Narrative exam: GENERAL: Still on full ventilatory support. well-developed obese white male lying on bed on restraints due to confusion and pulling. ETT HEENT: Normocephalic. Atraumatic. No conjunctival congestion or icterus. Patient has moist mucous membranes. ETT NECK: Supple. Trachea midline. CHEST/LUNGS: Coarse breath sound auscultated bilaterally, HEART/CARDIOVASCULAR: Regular in rate and rhythm. S1 and S2 positive. ABDOMEN: Abdomen is soft, distended nontender. Patient has normal bowel sounds. SKIN: There is no rash. Warm and dry. NEURO: Follows some command, AMS, no focal deficits MUSCULOSKELETAL: No joint effusion or tenderness. EXTRIMITY: No edema, no cyanosis or clubbing. PSYCH: Sedated - Constitutional Vitals: Temp Pulse Resp BP Pulse Ox 98.4 F 83 17 143/65 100 01/06/20 15:59 01/06/20 14:00 01/06/20 14:00 01/06/20 11:48 01/06/20 11:48 General appearance: Present: severe distress HEART Score - HEART Score Troponin: Troponin T 0.011 ng/mL (0.00-0.029) 12/18/19 14:45 Results - Labs CBC & Chem 7: 01/06/20 04:58 01/06/20 04:58 Labs: Laboratory Last Values WBC 8.3 K/mm3 (4.5-11.0) 01/06/20 04:58 RBC 3.67 M/mm3 (3.65-5.03) 01/06/20 04:58 Hgb 8.8 gm/dl (11.8-15.2) L 01/06/20 04:58 Hct 28.7 % (35.5-45.6) L 01/06/20 04:58 MCV 78 fl (84-94) L 01/06/20 04:58 MCH 24 pg (28-32) L 01/06/20 04:58 MCHC 31 % (32-34) L 01/06/20 04:58 RDW 18.7 % (13.2-15.2) H 01/06/20 04:58 Plt Count 522 K/mm3 (140-440) H 01/06/20 04:58 Lymph % (Auto) 19.9 % (13.4-35.0) 01/02/20 05:00 Swain % (Auto) 9.4 % (0.0-7.3) H 01/02/20 05:00 Eos % (Auto) 11.2 % (0.0-4.3) H 01/02/20 05:00 Baso % (Auto) 0.8 % (0.0-1.8) 01/02/20 05:00 Lymph # 1.4 K/mm3 (1.2-5.4) 01/02/20 05:00 Swain # 0.7 K/mm3 (0.0-0.8) 01/02/20 05:00 Eos # 0.8 K/mm3 (0.0-0.4) H 01/02/20 05:00 Baso # 0.1 K/mm3 (0.0-0.1) 01/02/20 05:00 Add Manual Diff Complete 12/24/19 04:53 Total Counted 100 12/24/19 04:53 Seg Neutrophils % 58.7 % (40.0-70.0) 01/02/20 05:00 Seg Neuts % (Manual) 60.0 % (40.0-70.0) 12/24/19 04:53 Band Neutrophils % 0 % 12/24/19 04:53 Lymphocytes % (Manual) 20.0 % (13.4-35.0) 12/24/19 04:53 Reactive Lymphs % (Man) 0 % 12/24/19 04:53 Monocytes % (Manual) 15.0 % (0.0-7.3) H 12/24/19 04:53 Eosinophils % (Manual) 4.0 % (0.0-4.3) 12/24/19 04:53 Basophils % (Manual) 0 % (0.0-1.8) 12/24/19 04:53 Metamyelocytes % 1.0 % 12/24/19 04:53 Myelocytes % 0 % 12/24/19 04:53 Promyelocytes % 0 % 12/24/19 04:53 Blast Cells % 0 % 12/24/19 04:53 Nucleated RBC % Not Reportable 12/24/19 04:53 Seg Neutrophils # 4.0 K/mm3 (1.8-7.7) 01/02/20 05:00 Seg Neutrophils # Man 3.5 K/mm3 (1.8-7.7) 12/24/19 04:53 Band Neutrophils # 0.0 K/mm3 12/24/19 04:53 Lymphocytes # (Manual) 1.2 K/mm3 (1.2-5.4) 12/24/19 04:53 Abs React Lymphs (Man) 0.0 K/mm3 12/24/19 04:53 Monocytes # (Manual) 0.9 K/mm3 (0.0-0.8) H 12/24/19 04:53 Eosinophils # (Manual) 0.2 K/mm3 (0.0-0.4) 12/24/19 04:53 Basophils # (Manual) 0.0 K/mm3 (0.0-0.1) 12/24/19 04:53 Metamyelocytes # 0.1 K/mm3 12/24/19 04:53 Myelocytes # 0.0 K/mm3 12/24/19 04:53 Promyelocytes # 0.0 K/mm3 12/24/19 04:53 Blast Cells # 0.0 K/mm3 12/24/19 04:53 WBC Morphology Not Reportable 12/24/19 04:53 Hypersegmented Neuts Not Reportable 12/24/19 04:53 Hyposegmented Neuts Not Reportable 12/24/19 04:53 Hypogranular Neuts Not Reportable 12/24/19 04:53 Smudge Cells Not Reportable 12/24/19 04:53 Toxic Granulation Not Reportable 12/24/19 04:53 Toxic Vacuolation Not Reportable 12/24/19 04:53 Dohle Bodies Not Reportable 12/24/19 04:53 Pelger-Huet Anomaly Not Reportable 12/24/19 04:53 Mervin Rods Not Reportable 12/24/19 04:53 Platelet Estimate Consistent w auto 12/24/19 04:53 Clumped Platelets Not Reportable 12/24/19 04:53 Plt Clumps, EDTA Not Reportable 12/24/19 04:53 Large Platelets Not Reportable 12/24/19 04:53 Giant Platelets Not Reportable 12/24/19 04:53 Platelet Satelliting Not Reportable 12/24/19 04:53 Plt Morphology Comment Not Reportable 12/24/19 04:53 RBC Morphology Not Reportable 12/24/19 04:53 Dimorphic RBCs Not Reportable 12/24/19 04:53 Polychromasia Rare 12/24/19 04:53 Hypochromasia 1+ 12/24/19 04:53 Poikilocytosis Not Reportable 12/24/19 04:53 Anisocytosis 1+ 12/24/19 04:53 Microcytosis Few 12/24/19 04:53 Macrocytosis Not Reportable 12/24/19 04:53 Spherocytes Not Reportable 12/24/19 04:53 Pappenheimer Bodies Not Reportable 12/24/19 04:53 Sickle Cells Not Reportable 12/24/19 04:53 Target Cells Not Reportable 12/24/19 04:53 Tear Drop Cells Not Reportable 12/24/19 04:53 Ovalocytes Few 12/24/19 04:53 Helmet Cells Not Reportable 12/24/19 04:53 [place] Bodies Not Reportable 12/24/19 04:53 [place] Rings Not Reportable 12/24/19 04:53 [place] Cells Not Reportable 12/24/19 04:53 Bite Cells Not Reportable 12/24/19 04:53 Crenated Cell Not Reportable 12/24/19 04:53 Elliptocytes Not Reportable 12/24/19 04:53 Acanthocytes (Spur) Not Reportable 12/24/19 04:53 Rouleaux Not Reportable 12/24/19 04:53 Hemoglobin C Crystals Not Reportable 12/24/19 04:53 Schistocytes Not Reportable 12/24/19 04:53 Malaria parasites Not Reportable 12/24/19 04:53 Gianni Bodies Not Reportable 12/24/19 04:53 Hem Pathologist Commnt No 12/24/19 04:53 PT 14.0 Sec. (12.2-14.9) 12/18/19 14:45 INR 1.10 (0.87-1.13) 12/18/19 14:45 APTT 29.4 Sec. (24.2-36.6) 12/18/19 14:45 D-Dimer 534.45 ng/mlDDU (0-234) H 12/18/19 14:45 ABG pH 7.428 pH Units (7.350-7.450) 01/06/20 03:50 ABG pCO2 46.6 mm Hg 01/06/20 03:50 ABG pO2 76.2 mm Hg (80.0-90.0) L 01/06/20 03:50 ABG HCO3 30.1 mmol/L (20.0-26.0) H 01/06/20 03:50 ABG O2 Saturation 96.1 % (95.0-99.0) 01/06/20 03:50 ABG O2 Content 12.6 (0.0-44) 01/06/20 03:50 ABG Base Excess 5.1 mmol/L (-2.0-3.0) H 01/06/20 03:50 ABG Hemoglobin 9.5 gm/dl (14.0-18.0) L 01/06/20 03:50 ABG Carboxyhemoglobin 1.9 % (0.0-5.0) 01/06/20 03:50 ABG Methemoglobin 0.5 % (0.0-1.5) 01/06/20 03:50 Oxyhemoglobin 93.8 % (95.0-99.0) L 01/06/20 03:50 FiO2 50 % 01/06/20 03:50 Sodium 150 mmol/L (137-145) H D 01/06/20 04:58 Potassium 3.6 mmol/L (3.6-5.0) 01/06/20 04:58 Chloride 109.3 mmol/L (98-107) H 01/06/20 04:58 Carbon Dioxide 30 mmol/L (22-30) 01/06/20 04:58 Anion Gap 14 mmol/L 01/06/20 04:58 BUN 25 mg/dL (9-20) H 01/06/20 04:58 Creatinine 1.3 mg/dL (0.8-1.5) 01/06/20 04:58 Estimated GFR > 60 ml/min 01/06/20 04:58 BUN/Creatinine Ratio 19 % 01/06/20 04:58 Glucose 55 mg/dL (75-100) L 01/06/20 04:58 POC Glucose 119 (70-105) H 01/06/20 14:10 Lactic Acid 1.70 mmol/L (0.7-2.0) 12/30/19 05:06 Calcium 10.0 mg/dL (8.4-10.2) 01/06/20 04:58 Phosphorus 3.70 mg/dL (2.5-4.5) 12/27/19 03:48 Magnesium 2.60 mg/dL (1.7-2.3) H 12/30/19 05:06 Ferritin 83.4 ng/mL (13.0-400.0) 12/18/19 14:45 Total Bilirubin 0.30 mg/dL (0.1-1.2) 12/19/19 04:13 AST 85 units/L (5-40) H 12/19/19 04:13 ALT 61 units/L (7-56) H 12/19/19 04:13 Alkaline Phosphatase 80 units/L (35-129) 12/19/19 04:13 Ammonia 39.0 umol/L (25-60) 12/18/19 14:45 Lactate Dehydrogenase 235 units/L (91-180) H 12/18/19 14:45 Lactate Dehydrogenase 236 units/L (91-180) H 12/18/19 14:45 Total Creatine Kinase 40 units/L (55-170) L 12/18/19 14:45 Troponin T 0.011 ng/mL (0.00-0.029) 12/18/19 14:45 C-Reactive Protein 8.40 mg/dL (0.00-1.30) H 12/18/19 14:45 C-Reactive Protein 8.50 mg/dL (0.00-1.30) H 12/18/19 14:45 Total Protein 6.8 g/dL (6.3-8.2) 12/19/19 04:13 Albumin 3.0 g/dL (3.9-5) L 12/19/19 04:13 Albumin/Globulin Ratio 0.8 % 12/19/19 04:13 Procalcitonin 0.22 ng/mL (<0.15) 12/18/19 14:45 TSH 2.300 mlU/mL (0.270-4.200) 12/18/19 14:45 Urine Color Yellow (Yellow) 12/19/19 16:50 Urine Turbidity Clear (Clear) 12/19/19 16:50 Urine pH 5.0 (5.0-7.0) 12/19/19 16:50 Ur Specific [place] 1.010 (1.003-1.030) 12/19/19 16:50 Urine Protein <15 mg/dl mg/dL (Negative) 12/19/19 16:50 Urine Glucose (UA) 150 mg/dL (Negative) 12/19/19 16:50 Urine Ketones Neg mg/dL (Negative) 12/19/19 16:50 Urine Blood Neg (Negative) 12/19/19 16:50 Urine Nitrite Neg (Negative) 12/19/19 16:50 Urine Bilirubin Neg (Negative) 12/19/19 16:50 Urine Urobilinogen < 2.0 mg/dL (<2.0) 12/19/19 16:50 Ur Leukocyte Esterase Tr (Negative) 12/19/19 16:50 Urine WBC (Auto) 7.0 /HPF (0.0-6.0) H 12/19/19 16:50 Urine RBC (Auto) 4.0 /HPF (0.0-6.0) 12/19/19 16:50 U Epithel Cells (Auto) 1.0 /HPF (0-13.0) 12/19/19 16:50 Urine Bacteria (Auto) 1+ /HPF (Negative) 12/19/19 16:50 Urine Mucus Few /HPF 12/19/19 16:50 Urine Osmolality 140 Mosm/kg 12/25/19 16:45 Urine Creatinine < 4.2 mg/dL (0.1-20.0) 12/25/19 16:45 Urine Sodium 10 mmol/L 12/25/19 16:45 Urine Total Protein < 4 mg/dL (5-11.8) L 12/25/19 16:45 Digoxin 0.3 ng/mL (0.9-2.0) L 12/18/19 14:45 Salicylates < 0.3 mg/dL (2.8-20.0) L 12/18/19 14:45 Acetaminophen < 5.0 ug/mL (10.0-30.0) L 12/18/19 14:45 Plasma/Serum Alcohol < 0.01 % (0-0.07) 12/18/19 14:45 Coronavirus (PCR) Negative (Negative) 12/21/19 14:45 AFB Identification 01/05/20 09:05 Fungal Id Prelim 01/05/20 09:05 Blood Type A POSITIVE 12/18/19 14:45 Antibody Screen Negative 12/18/19 14:45 Microbiology: Microbiology 01/05/20 09:05 Bronchial Washings - Left Lower Lobe Respiratory Culture - Preliminary - Diagnostic Impressions Diagnostic Impressions: Echocardiogram 12/28/19 14:07 Transthoracic Echocardiogram Indication: SOB BP: 95/51 HR: 99 Conclusions *The left ventricular chamber size is mildly dilated. *There is no left ventricular hypertrophy. *Global left ventricular systolic function is mildly decreased. *The estimated ejection fraction is 45-50%. *Abnormal left ventricular diastolic filling is observed, consistent with impaired relaxation. *The right ventricular global systolic function is mildly reduced. *The right ventricular systolic pressure is calculated at 53 mmHg. Findings Left Ventricle: The left ventricular chamber size is mildly dilated. There is no left ventricular hypertrophy. Global left ventricular systolic function is mildly decreased. The estimated ejection fraction is 45-50%. Abnormal left ventricular diastolic filling is observed, consistent with impaired relaxation. Left Atrium: The left atrial chamber size is normal. Right Ventricle: The right ventricular cavity size is normal. The right ventricular global systolic function is mildly reduced. Right Atrium: The right atrial cavity size is normal. Aortic Valve: The aortic valve leaflets are mildly thickened. There is no evidence of aortic regurgitation. Mitral Valve: The mitral valve leaflets are mildly thickened. There is no evidence of mitral regurgitation. Tricuspid Valve: The tricuspid valve leaflets are normal. There is mild tricuspid regurgitation. The right ventricular systolic pressure is calculated at 53 mmHg. Pulmonic Valve: The pulmonic valve appears normal. There is trace pulmonic regurgitation. Pericardium: There is no pericardial effusion. Aorta: The aorta appears normal. Venous: The inferior vena cava is dilated. Measurements Chambers 2D Name Value Normal Range IVSd (2D) 1.08 cm (0.6 - 1.1) LVPWd (2D) 1 cm (0.6 - 1.1) LVIDd (2D) 4.67 cm (3.7 - 5.6) LVIDs (2D) 3.89 cm (2 - 3.8) LV FS (2D) 16.76 % - EF Teichholz (2D) 35.14 % - Ao root diameter (2D) 2.86 cm (2 - 3.7) Volumes/Mass Name Value Normal Range LA ESV SP 4CH (A/L) 31.8 ml - LA ESV SP 2CH (A/L) 27.37 ml - LA ESV BP (A/L) 33.43 ml - LA ESV BP (A/L) index 14.11 ml/m2 - LA ESV SP 4CH (MOD) 26.83 ml - LA ESV SP 2CH (MOD) 29.59 ml - LA ESV BP (MOD) 30.47 ml - LA ESV BP (MOD) index 12.86 ml/m2 - Diastolic/Systolic Function Name Value Normal Range MV E-wave Vmax 0.39 m/sec - MV deceleration time 115.69 msec - MV A-wave Vmax 0.63 m/sec - MV E:A ratio 0.62 ratio - Aortic Valve Name Value Normal Range AV Vmax 1.14 m/sec - AV VTI 20.1 cm - AV peak gradient 5.17 mmHg - AV mean gradient 3.89 mmHg - LVOT diameter 2.02 cm - LVOT Vmax 0.99 m/sec - LVOT VTI 16.45 cm - LVOT peak gradient 3.95 mmHg - LVOT mean gradient 2.45 mmHg - SV LVOT 52.45 ml - RALPH (continuity Vmax) 2.78 cm2 - RALPH (continuity VTI) 2.61 cm2 - Tricuspid Valve Name Value Normal Range TR Vmax 3.36 m/sec - TR peak gradient 45 mmHg - RAP 8 mmHg - RVSP 53 mmHg - IVC diameter 2.33 cm (1.2 - 2.3) Pulmonic Valve/Qp:Qs Name Value Normal Range PV Vmax 0.89 m/sec - PV peak gradient 3.16 mmHg - CO end-diastolic Vmax 1.42 m/sec - PV acceleration time 79.92 msec - Sykes/IV: Voiding Method Condom Catheter IV Catheter Type [Right Upper PICC Line arm] IV Catheter Type [Right Leg] Intra-osseous IV Catheter Type [Right Wrist] Peripheral IV IV Catheter Type [Right Hand] INT / Saline Lock IV Catheter Type [Left Hand] INT / Saline Lock IV Catheter Type [Left Forearm INT / Saline Lock ] IV Catheter Type [Left Triple Lumen Cath Internal Jugular] Active Medications - Current Medications Current Medications: Generic Name Dose Route Start Last Admin Trade Name Freq PRN Reason Stop Dose Admin Acetaminophen 650 mg 12/29/19 09:21 01/03/20 18:31 Tylenol PO 650 mg Q4H PRN Administration Non Cardiac Pain or Temp>100.5 Albuterol/Ipratropium 1 ampul 12/18/19 14:00 01/06/20 16:36 Duoneb *Not For Prn Use* IH 1 ampul TIDRT SHANEL Administration Lipase/Protease/Amylase 1 each 12/19/19 08:29 Pancreaze 10,500 Unit FEEDTUBE PRN PRN For Clogged Feeding Tube Aspirin 81 mg 12/19/19 10:00 01/06/20 10:02 Baby Aspirin PO 81 mg DAILY SHANEL Administration Bisacodyl 10 mg 01/02/20 15:48 01/02/20 18:25 Dulcolax CO 10 mg QDAY PRN Administration Constipation Docusate Sodium 100 mg 01/01/20 22:00 01/06/20 10:21 Colace PO 100 mg BID SHANEL Administration Famotidine 20 mg 12/20/19 10:00 01/06/20 10:02 Pepcid PO 20 mg BID SHANEL Administration Fentanyl 50 mcg 12/27/19 16:57 Sublimaze IV Q10MIN PRN ANALGESIA Folic Acid 1 mg 12/19/19 10:00 01/06/20 10:02 Folvite PO 1 mg DAILY SHANEL Administration Heparin Sodium (Porcine) 5,000 unit 12/18/19 22:00 01/06/20 10:21 Heparin SUB-Q 5,000 unit Q12HR SHANEL Administration Hydrophilic Ointment 1 applic 12/18/19 12:35 Vaseline Lip Therapy TP Q2HR PRN Dry Lips Fentanyl Citrate 2,000 mcg in 100 mls @ 5.85 mls/hr 12/27/19 17:00 01/06/20 10:19 Fentanyl Drip Premix IV 2 mcg/kg/hr TITR SHANEL 11.7 mls/hr Administration Protocol 1 MCG/KG/HR Norepinephrine 4 mg in 250 mls @ 7.5 mls/hr 12/28/19 15:00 12/31/19 18:12 Levophed Drip 4 Mg/Ns 250 Ml IV 0 mcg/min TITR SHANEL 0 mls/hr Titration Protocol 2 MCG/MIN Linezolid 600 mg in 300 mls @ 300 mls/hr 12/29/19 15:00 01/06/20 10:01 Zyvox 600mg/300ml IV 01/07/20 22:59 300 mls/hr Q12HR SHANEL Administration Protocol Vasopressin 20 unit/ Sodium 101 mls @ 9.09 mls/hr 12/30/19 12:30 01/01/20 13:44 Chloride IV 0 units/min TITR SHANEL 0 mls/hr Titration Protocol 0.03 UNITS/MIN Dopamine HCl/Dextrose 800 mg in 250 mls @ 4.388 mls/hr 12/31/19 16:00 01/06/20 10:00 Intropin Drip 800 Mg/D5w 250 Ml IV 16 mcg/kg/min TITR SHANEL 35.1 mls/hr Administration Protocol 2 MCG/KG/MIN Dextrose 1,000 mls @ 75 mls/hr 01/06/20 12:00 D10w IV DIRECT [facility] Insulin Human Lispro 0 unit 12/31/19 14:00 01/06/20 14:07 Humalog SUB-Q Not Given Q4HR [facility] Protocol Levothyroxine Sodium 88 mcg 12/19/19 06:00 01/06/20 05:02 Synthroid PO 88 mcg QAM@0600 SHANEL Administration Multi-Ingred Cream/Lotion/Oil/Oint 1 applic 12/18/19 12:35 Artificial Tears Ophth Oint OU Q4HR PRN Dry Eye(s) Polyethylene Glycol 17 gm 01/01/20 22:00 01/05/20 22:30 Miralax 3350 PO 17 gm QHS SHANEL Administration Potassium Chloride 40 meq 12/29/19 10:00 01/06/20 10:02 Potassium Chloride FEEDTUBE 40 meq QDAY SHANEL Administration Simple Syrup 15 ml 12/19/19 08:29 01/06/20 04:58 Simple Syrup FEEDTUBE 15 ml PRN PRN Administration Hypoglycemia Simple Syrup 30 ml 12/19/19 08:29 Simple Syrup FEEDTUBE PRN PRN Hypoglycemia Sodium Bicarbonate 325 mg 12/19/19 08:29 Sodium Bicarbonate FEEDTUBE PRN PRN For Clogged Feeding Tube Sodium Chloride 10 ml 12/18/19 22:00 01/06/20 10:02 Sodium Chloride Flush Syringe 10 Ml IV 10 ml BID SHANEL Administration Sodium Chloride 10 ml 12/18/19 13:31 Sodium Chloride Flush Syringe 10 Ml IV PRN PRN LINE FLUSH Nutrition/Malnutrition Assess - Dietary Evaluation Nutrition/Malnutrition Findings: Nutrition Notes Start: 12/19/19 08:16 Freq: Status: Active Protocol: Document 01/06/20 15:15 LM (Rec: 01/06/20 15:20 LM [email or web address]) Nutrition Notes Initial or Follow up Reassessment Current Diagnosis Diabetes,Sepsis,Hypertension, Heart Failure,Respiratory Failure Other Pertinent Diagnosis Suspected COVID-19, pneu Current Diet Vital AF 1.2 at 65ml/hr Labs/Tests Na 150 BUN 25 BG 55 Pertinent Medications Reviewed Height 6 ft 2 in Weight 117 kg [place] Body Weight (kg) 86.36 BMI 33.1 Weight Status Obese Subjective/Other Information TF is at 30ml/hr. RN stated TF will stay at 30ml/hr for now. Percent of energy/protein needs met: 43%/31% Burn Absent Trauma Absent Current % PO Negligible Minimum of two criteria No physical signs of malnutrition #1 Nutrition Diagnosis Inadequate oral intake Diagnosis Progress(for reassessment Continues documentation) Is patient on ventilator? Yes Is Patient Ambulatory and/or Out of Bed No REE-([facility]-confined to bed) 2469.960 Kcal/Kg value to use for calculation 17 Approximate Energy Requirements Using 1989 kcal/Kg Calculation Used for Recommendations Kcal/kg Additional Notes Protein: 172g (>/=2g/kg using IBW 86kg) Fluid 1ml/kcal Nutrition Intervention Change Diet Order: TF Nutrition Support: Vital AF 1.2 at 65ml/hr Flush 300ml q4h for hypernatremia Flush 100ml q4h once resolved Kcal 1,872 Protein (gm) 117 Fluid (mL) 1,265 Goal #1 TF tolerance Goal #2 Meet at least 75% of energy and protein needs Anticipated Discharge Needs: unable to determine at this time Follow-Up By: 01/10/20 Additional Comments F/U for TF/tolerance, goal rate, Na
--- NOTE | 2020-01-06 17:13 | Progress Note ---
Assessment and Plan - Patient Problems (1) Acute kidney injury Current Visit: Yes Status: Acute Plan to address problem: JAGDEEP 2/2 pre-renal injury in setting of sepsis and hemodynamic instability and now with vasopressor requirements. pt remains non-oliguric, renal function unchanged from yesterday . Avoid nephrotoxins, maintain MAP >65 mmHg. Will mon itor lytes/renal parameters closely and make further recommendations (2) Acute respiratory failure Current Visit: Yes Status: Acute Qualifiers: Plan to address problem: Management on vent per Pulmonary/ICU. (3) Hypernatremia Current Visit: Yes Status: Acute Plan to address problem: Na remains elevated despite free water flushes 300cc q 4hr and on on D5W. Urine osm inappropriately low at 140, urine Na diluted in the setting of increased UOP. will give a dose of DDAVP tonight and monitor BMP. strict I/Os (4) Pneumonia Current Visit: No Status: Acute Qualifiers: Pneumonia type: due to unspecified organism Laterality: left Lung location: unspecified part of lung Qualified Code(s): J18.9 - Pneumonia, unspecified organism Plan to address problem: Management per primary/ICU team. (5) Diastolic CHF Current Visit: Yes Status: Acute Qualifiers: Heart failure chronicity: acute on chronic Qualified Code(s): I50.33 - Acute on chronic diastolic (congestive) heart failure Plan to address problem: management as per cardiology (6) Obesity hypoventilation syndrome Current Visit: Yes Status: Acute Subjective Date of service: 01/06/20 Principal diagnosis: Ac. Hypoxemic Resp Failure; Septic Shock; Magdiel. PNA; PUI COVID-19; CHF; JOE Interval history: Pt remains on vent, on vasopressor support with dopamin Objective - Vital Signs Vital signs: Vital Signs - 12hr 01/06/20 01/06/20 01/06/20 05:30 06:00 06:30 Temperature Pulse Rate 74 57 L 61 Pulse Rate [ Bilateral] Pulse Rate [ From Monitor] Respiratory 11 L 20 24 Rate Respiratory Rate [Bilateral ] Blood Pressure 121/72 114/63 116/61 O2 Sat by Pulse 99 98 98 Oximetry 01/06/20 01/06/20 01/06/20 07:00 07:30 08:00 Temperature 97.7 F Pulse Rate 60 60 67 Pulse Rate [ 77 Bilateral] Pulse Rate [ 66 From Monitor] Respiratory 24 23 24 Rate Respiratory 24 Rate [Bilateral ] Blood Pressure 115/62 113/61 112/64 O2 Sat by Pulse 99 98 100 Oximetry 01/06/20 01/06/20 01/06/20 08:30 09:00 09:30 Temperature Pulse Rate 78 67 72 Pulse Rate [ Bilateral] Pulse Rate [ From Monitor] Respiratory 25 H 21 24 Rate Respiratory Rate [Bilateral ] Blood Pressure 111/67 111/62 124/68 O2 Sat by Pulse 99 99 97 Oximetry 01/06/20 01/06/20 01/06/20 10:00 10:30 11:00 Temperature Pulse Rate 97 H 60 75 Pulse Rate [ Bilateral] Pulse Rate [ From Monitor] Respiratory 17 19 12 Rate Respiratory Rate [Bilateral ] Blood Pressure 133/68 127/67 129/69 O2 Sat by Pulse 97 100 95 Oximetry 01/06/20 01/06/20 01/06/20 11:30 11:48 12:00 Temperature 98.7 F Pulse Rate 61 64 60 Pulse Rate [ Bilateral] Pulse Rate [ 66 From Monitor] Respiratory 24 19 Rate Respiratory Rate [Bilateral ] Blood Pressure 134/68 143/65 138/60 O2 Sat by Pulse 98 100 95 Oximetry 01/06/20 01/06/20 01/06/20 12:30 13:00 13:30 Temperature Pulse Rate 62 63 67 Pulse Rate [ Bilateral] Pulse Rate [ From Monitor] Respiratory 24 18 24 Rate Respiratory Rate [Bilateral ] Blood Pressure 126/69 127/68 126/67 O2 Sat by Pulse 99 98 98 Oximetry 01/06/20 01/06/20 01/06/20 14:00 14:31 15:00 Temperature Pulse Rate 77 96 H 67 Pulse Rate [ 83 Bilateral] Pulse Rate [ From Monitor] Respiratory 25 H 20 24 Rate Respiratory 17 Rate [Bilateral ] Blood Pressure 127/63 119/76 103/56 O2 Sat by Pulse 96 99 98 Oximetry 01/06/20 01/06/20 01/06/20 15:30 15:59 16:00 Temperature 98.4 F Pulse Rate 74 Pulse Rate [ Bilateral] Pulse Rate [ 66 From Monitor] Respiratory 25 H 24 Rate Respiratory Rate [Bilateral ] Blood Pressure 110/59 O2 Sat by Pulse 98 100 Oximetry 01/06/20 01/06/20 01/06/20 16:01 16:30 17:01 Temperature Pulse Rate 67 70 71 Pulse Rate [ Bilateral] Pulse Rate [ From Monitor] Respiratory 24 24 24 Rate Respiratory Rate [Bilateral ] Blood Pressure 116/62 119/63 127/65 O2 Sat by Pulse 95 98 99 Oximetry - General Appearance General appearance: well-developed, appears stated age, intubated EENT: ATNC, PERRL, mucous membranes moist Neck: no JVD Respiratory: Present: Decreased Breath Sounds Cardiology: regular, S1S2 Gastrointestinal: normoactive bowel sounds Integumentary: no rash Neurologic: no focal deficit, confused, disoriented - Lab 01/06/20 04:58 01/06/20 04:58 Most recent lab results ABG pH 7.428 pH Units (7.350-7.450) 01/06/20 03:50 ABG pCO2 46.6 mm Hg 01/06/20 03:50 ABG pO2 76.2 mm Hg (80.0-90.0) L 01/06/20 03:50 ABG HCO3 30.1 mmol/L (20.0-26.0) H 01/06/20 03:50 ABG O2 Saturation 96.1 % (95.0-99.0) 01/06/20 03:50 Calcium 10.0 mg/dL (8.4-10.2) 01/06/20 04:58 Phosphorus 3.70 mg/dL (2.5-4.5) 12/27/19 03:48 Magnesium 2.60 mg/dL (1.7-2.3) H 12/30/19 05:06 Urine Creatinine < 4.2 mg/dL (0.1-20.0) 12/25/19 16:45 Urine Sodium 10 mmol/L 12/25/19 16:45 Urine Total Protein < 4 mg/dL (5-11.8) L 12/25/19 16:45 Medications & Allergies - Medications Allergies/Adverse Reactions: Allergies No Known Allergies Allergy (Unverified 12/19/19 01:31) Home Medications: Home Medications Medication Instructions Recorded Confirmed Last Taken Type Ipratropium/Albuterol Sulfate 1 ampul IH TIDRT #90 ampul.neb 06/02/19 12/28/19 Unknown Rx [DUONEB *Not for PRN Use*] Aspirin [Aspirin BABY CHEW TAB] 81 mg PO DAILY 06/03/19 12/28/19 3 Days Ago History ~05/31/19 Desmopressin [Ddavp] 0.2 mg PO BID 06/03/19 12/28/19 3 Days Ago History ~05/31/19 Digoxin [Lanoxin] 0.125 mg PO DAILY 06/03/19 12/28/19 3 Days Ago History ~05/31/19 Folic Acid 100 mg PO DAILY 06/03/19 12/28/19 3 Days Ago History ~05/31/19 Furosemide [Lasix TAB] 40 mg PO QDAY 06/03/19 12/28/19 3 Days Ago History ~05/31/19 Insulin Lispro [Humalog 100 4 units SQ AC 06/03/19 12/28/19 3 Days Ago History UNITS/ML Kwikpen] ~05/31/19 Levothyroxine [Synthroid] 88 mcg PO QAM 06/03/19 12/28/19 3 Days Ago History ~05/31/19 Metformin HCl [metFORMIN] 1,000 mg PO BID 06/03/19 12/28/19 3 Days Ago History ~05/31/19 Potassium Chloride [K-Dur] 20 meq PO QDAY 06/03/19 12/28/19 3 Days Ago History ~05/31/19 carvediloL [Coreg] 6.25 mg PO BID 06/03/19 12/28/19 3 Days Ago History ~05/31/19 Famotidine [Pepcid] 20 mg PO QDAY #30 tablet 06/06/19 12/28/19 Unknown Rx Insulin NPH/Regular [NovoLIN 70/30] 50 unit SUB-Q BIDDIAB #100 units 06/06/19 12/28/19 Unknown Rx Active Medications: Generic Name Dose Route Start Last Admin Trade Name Freq PRN Reason Stop Dose Admin Acetaminophen 650 mg 12/29/19 09:21 01/03/20 18:31 Tylenol PO 650 mg Q4H PRN Administration Non Cardiac Pain or Temp>100.5 Albuterol/Ipratropium 1 ampul 12/18/19 14:00 01/06/20 16:36 Duoneb *Not For Prn Use* IH 1 ampul TIDRT SHANEL Administration Lipase/Protease/Amylase 1 each 12/19/19 08:29 Erendira Cabrera 10,500 Unit FEEDTUBE PRN PRN For Clogged Feeding Tube Aspirin 81 mg 12/19/19 10:00 01/06/20 10:02 Baby Aspirin PO 81 mg DAILY SHANEL Administration Bisacodyl 10 mg 01/02/20 15:48 01/02/20 18:25 Dulcolax [place] 10 mg QDAY PRN Administration Constipation Docusate Sodium 100 mg 01/01/20 22:00 01/06/20 10:21 Colace PO 100 mg BID SHANEL Administration Famotidine 20 mg 12/20/19 10:00 01/06/20 10:02 Pepcid PO 20 mg BID SHANEL Administration Fentanyl 50 mcg 12/27/19 16:57 Sublimaze IV Q10MIN PRN ANALGESIA Folic Acid 1 mg 12/19/19 10:00 01/06/20 10:02 Folvite PO 1 mg DAILY SHANEL Administration Heparin Sodium (Porcine) 5,000 unit 12/18/19 22:00 01/06/20 10:21 Heparin SUB-Q 5,000 unit Q12HR SHANEL Administration Hydrophilic Ointment 1 applic 12/18/19 12:35 Vaseline Lip Therapy TP Q2HR PRN Dry Lips Fentanyl Citrate 2,000 mcg in 100 mls @ 5.85 mls/hr 12/27/19 17:00 01/06/20 10:19 Fentanyl Drip Premix IV 2 mcg/kg/hr TITR SHANEL 11.7 mls/hr Administration Protocol 1 MCG/KG/HR Norepinephrine 4 mg in 250 mls @ 7.5 mls/hr 12/28/19 15:00 12/31/19 18:12 Levophed Drip 4 Mg/Ns 250 Ml IV 0 mcg/min TITR SHANEL 0 mls/hr Titration Protocol 2 MCG/MIN Linezolid 600 mg in 300 mls @ 300 mls/hr 12/29/19 15:00 01/06/20 10:01 Zyvox 600mg/300ml IV 01/07/20 22:59 300 mls/hr Q12HR SHANEL Administration Protocol Vasopressin 20 unit/ Sodium 101 mls @ 9.09 mls/hr 12/30/19 12:30 01/01/20 13:44 Chloride IV 0 units/min TITR SHANEL 0 mls/hr Titration Protocol 0.03 UNITS/MIN Dopamine HCl/Dextrose 800 mg in 250 mls @ 4.388 mls/hr 12/31/19 16:00 01/06/20 10:00 Intropin Drip 800 Mg/D5w 250 Ml IV 16 mcg/kg/min TITR SHANEL 35.1 mls/hr Administration Protocol 2 MCG/KG/MIN Dextrose 1,000 mls @ 75 mls/hr 01/06/20 12:00 D10w IV DIRECT SHANEL Insulin Human Lispro 0 unit 12/31/19 14:00 01/06/20 14:07 Humalog SUB-Q Not Given Q4HR [facility] Protocol Levothyroxine Sodium 88 mcg 12/19/19 06:00 01/06/20 05:02 Synthroid PO 88 mcg QAM@0600 SHANEL Administration Multi-Ingred Cream/Lotion/Oil/Oint 1 applic 12/18/19 12:35 Artificial Tears Ophth Oint OU Q4HR PRN Dry Eye(s) Polyethylene Glycol 17 gm 01/01/20 22:00 01/05/20 22:30 Miralax 3350 PO 17 gm QHS SHANEL Administration Potassium Chloride 40 meq 12/29/19 10:00 01/06/20 10:02 Potassium Chloride FEEDTUBE 40 meq QDAY SHANEL Administration Simple Syrup 15 ml 12/19/19 08:29 01/06/20 04:58 Simple Syrup FEEDTUBE 15 ml PRN PRN Administration Hypoglycemia Simple Syrup 30 ml 12/19/19 08:29 Simple Syrup FEEDTUBE PRN PRN Hypoglycemia Sodium Bicarbonate 325 mg 12/19/19 08:29 Sodium Bicarbonate FEEDTUBE PRN PRN For Clogged Feeding Tube Sodium Chloride 10 ml 12/18/19 22:00 01/06/20 10:02 Sodium Chloride Flush Syringe 10 Ml IV 10 ml BID SHANEL Administration Sodium Chloride 10 ml 12/18/19 13:31 Sodium Chloride Flush Syringe 10 Ml IV PRN PRN LINE FLUSH
[2020-01-06] MEDS ORDERED: DESMOPRESSIN 4 MCG/ML VIAL SUB-Q ONE (20:00)
[2020-01-06] MEDS: POLYETHYLENE GLYCOL 3350 17 GM POWDER PO SCH (21:04)
[2020-01-07] MEDS: INSULIN LISPRO 100 UNIT/ML SUB-Q SCH ×6 (03:00→21:59)
[2020-01-07] MEDS: DEXTROSE 10% IN WATER 1,000 ML IV SCH (03:02)
[2020-01-07 04:01] LABS: ABG HCO3 28.9 mmol/L (20.0-26.0); ABG Methemoglobin 0.8 % (0.0-1.5); ABG Oxygen Saturation 96.6 % (95.0-99.0); ABG PCO2 44.8 mm Hg; ABG PH 7.427 pH Units (7.350-7.450); ABG PO2 82.2 mm Hg (80.0-90.0)
[2020-01-07] MEDS: DOPamine/D5W 800 MG/250 ML 800 MG/250 ML BAG IV SCH ×2 (05:05→18:56)
[2020-01-07] MEDS: LEVOTHYROXINE 88 MCG TAB PO SCH (05:05)
[2020-01-07] MEDS: fentaNYL DRIP Premix 2,000 MCG/100 ML BAG IV SCH ×2 (05:05→13:55)
[2020-01-07] MEDS: IPRATROPIUM/ALBUTEROL SULFATE 3 ML AMPUL.NEB IH SCH ×3 (08:16→21:08)
[2020-01-07] MEDS: ASPIRIN 81 MG TAB CHEW PO SCH (10:32)
[2020-01-07] MEDS: FAMOTIDINE 20 MG TAB PO SCH ×2 (10:32→21:59)
[2020-01-07] MEDS: DOCUSATE SODIUM 100 MG/10 ML ORAL LIQD PO SCH ×2 (10:32→21:59)
[2020-01-07] MEDS: FOLIC ACID 1 MG TAB PO SCH (10:32)
--- NOTE | 2020-01-07 10:36 | Progress Note ---
Assessment and Plan Acute Hypoxemic Respiratory Failure Severe Sepsis with Shock Bilateral Pneumonia JAGDEEP secondary to ATN, non oliguric Hypernatremia Morbid Obesity H/O CHF JOE - wean vasopressors for MAP > 65 mmHg -Wean PEEP down to 8, ABG in am -Bowel regimen -Free water and hypotonic solutions for hypernatremia -Bowel regimen -Will trial Stress dose steroids for vasopressor dependant shock -Antibtioics to complete course per ID - continue care as below otherwise - Daily SAT and SBT assessment as tolerated - accuchecks with glycemic control per SSI (While critically ill target blood glucose of 140-180 mg/dL; avoid hypoglycemia) - sedation for target RASS 0 to -1 - continue to wean supplemental oxygen for target O2 sat's > 92% acutely - continue bronchodilators with pulmonary hygiene per RT - VAP bundle addressed - lung protective strategies - wean per pulmonary driven protocols otherwise - continue to avoid benzodiazepines, reduce the possibility of delirium - prn analgesia per CPOT score - Maintenance of sleep-wake cycle - continue to avoid benzodiazepines, reduce the possibility of delirium - continue enteral nutritional support at goal rate as tolerated - G.I. & VTE prophylaxis - PT/OT/ROM exercises - continue mobility protocols for pressure ulcer prophylaxis - repeat COVID-19 test negative - continue aspiration precautions - continue accuchecks with glycemic control per SSI (While critically ill target blood glucose of 140-180 mg/dL; avoid hypoglycemia) - Monitor hemodynamics closely - continue other care per attending / other consultants - discharge planning ongoing concurrently - LTAC evaluation requested .... Re-evaluate in am & prn CONDITION: CRITICAL PROGNOSIS: GUARDED CODE STATUS: FULL CODE The high probability of a clinically significant, sudden or life-threatening deterioration of the [respiratory, cardiovascular, GI & neurologic] system(s) required my full and direct attention, intervention and personal management. The aggregate critical care time was [32] minutes without overlap. Time includes spent on; [x] Data Review and interpretation [x] Patient assessment and monitoring of vital signs [x] Documentation [x] Medication orders and management Subjective Date of service: 01/07/20 Principal diagnosis: Ac. Hypoxemic Resp Failure; Septic Shock; Magdiel. PNA; PUI COVID-19; CHF; JOE Interval history: Patient is seen today for: Acute Hypoxemic Respiratory Failure; Severe Sepsis with Shock; Bilateral Pneumonia; PUI COVID-19; Morbid Obesity; H/O CHF; JOE Seen and examined at bedside; 24hour events reviewed; nursing and respiratory care staff consulted; no adverse overnight events reported to me; resting peacefully in bed; remains on MVS; AMS is persistent; no emesis or overt aspiration; sputum grew MRSA; remains on vasopressor support dopamine at 10mcg, distended abdomen still no bowel movement Bronchial washings NGTD, usual respiratory july No fevers, episode of hypoglycemia overnight Objective Vital Signs - 12hr 01/06/20 01/06/20 01/06/20 23:01 23:31 23:39 Temperature Pulse Rate 85 70 69 Pulse Rate [ Bilateral] Pulse Rate [ From Monitor] Respiratory 14 24 15 Rate Respiratory Rate [Bilateral ] Blood Pressure 120/64 120/60 113/56 O2 Sat by Pulse 97 96 97 Oximetry 01/06/20 01/07/20 01/07/20 23:58 00:00 00:30 Temperature 98.6 F Pulse Rate 71 69 68 Pulse Rate [ Bilateral] Pulse Rate [ 73 From Monitor] Respiratory 17 23 Rate Respiratory Rate [Bilateral ] Blood Pressure 120/60 130/72 115/55 O2 Sat by Pulse 98 97 99 Oximetry 01/07/20 01/07/20 01/07/20 01:00 01:31 02:00 Temperature Pulse Rate 60 74 56 L Pulse Rate [ Bilateral] Pulse Rate [ From Monitor] Respiratory 24 19 20 Rate Respiratory Rate [Bilateral ] Blood Pressure 106/55 119/69 115/58 O2 Sat by Pulse 99 98 98 Oximetry 01/07/20 01/07/20 01/07/20 02:30 03:00 03:31 Temperature Pulse Rate 57 L 58 L 57 L Pulse Rate [ Bilateral] Pulse Rate [ From Monitor] Respiratory 22 23 16 Rate Respiratory Rate [Bilateral ] Blood Pressure 112/58 114/56 112/57 O2 Sat by Pulse 98 99 99 Oximetry 01/07/20 01/07/20 01/07/20 03:35 04:00 04:17 Temperature 98.5 F Pulse Rate 56 L 60 Pulse Rate [ Bilateral] Pulse Rate [ 94 H From Monitor] Respiratory 15 Rate Respiratory Rate [Bilateral ] Blood Pressure 115/61 115/62 O2 Sat by Pulse 99 99 Oximetry 01/07/20 01/07/20 01/07/20 04:30 05:00 05:31 Temperature Pulse Rate 67 68 72 Pulse Rate [ Bilateral] Pulse Rate [ From Monitor] Respiratory 21 15 15 Rate Respiratory Rate [Bilateral ] Blood Pressure 110/64 123/65 110/73 O2 Sat by Pulse 98 97 99 Oximetry 01/07/20 01/07/20 01/07/20 06:00 06:31 07:00 Temperature Pulse Rate 65 65 61 Pulse Rate [ Bilateral] Pulse Rate [ From Monitor] Respiratory 15 14 19 Rate Respiratory Rate [Bilateral ] Blood Pressure 98/51 106/49 87/46 O2 Sat by Pulse 99 99 99 Oximetry 01/07/20 01/07/20 07:31 08:00 Temperature 98.0 F Pulse Rate 53 L 62 Pulse Rate [ 60 Bilateral] Pulse Rate [ 65 From Monitor] Respiratory 9 L 24 Rate Respiratory 23 Rate [Bilateral ] Blood Pressure 106/58 95/51 O2 Sat by Pulse 100 99 Oximetry Constitutional: no acute distress, other (elderly obese AAM with mildly increrased respiratory effort at rest, awake) Eyes: non-icteric ENT: oropharynx moist, other (ETT in place, 23 cm at the lip) Neck: supple, no lymphadenopathy, no JVD Effort: mildly labored Ascultation: Bilateral: diminished breath sounds, rhonchi Percussion: Bilateral: not dull Cardiovascular: regular rate and rhythm, other (S1,S2) Gastrointestinal: normoactive bowel sounds, soft, non-tender, other (protuberant) Integumentary: rash (stasis dermatyitis) Extremities: no cyanosis, pink and warm, pulses normal, no ischemia or petechiae, edema (trace) Neurologic: pupils equal and round, other (awake and alert, tracking voice) Psychiatric: other CBC and BMP: 01/06/20 04:58 01/07/20 11:40 ABG, PT/INR, D-dimer: ABG ABG pH 7.427 pH Units (7.350-7.450) 01/07/20 Unknown ABG pCO2 44.8 mm Hg 01/07/20 Unknown ABG pO2 82.2 mm Hg (80.0-90.0) 01/07/20 Unknown ABG O2 Saturation 96.6 % (95.0-99.0) 01/07/20 Unknown PT/INR, D-dimer PT 14.0 Sec. (12.2-14.9) 12/18/19 14:45 INR 1.10 (0.87-1.13) 12/18/19 14:45 D-Dimer 534.45 ng/mlDDU (0-234) H 12/18/19 14:45 Abnormal lab findings: Abnormal Labs 12/18/19 12/18/19 12/18/19 12:23 14:45 14:45 WBC RBC Hgb 10.4 L Hct 35.2 L MCV MCH 25 L MCHC 30 L RDW 18.8 H Plt Count Lymph % (Auto) [place] % (Auto) 11.6 H Eos % (Auto) 4.8 H Lymph # [place] # 1.0 H Eos # Seg Neutrophils % Monocytes % (Manual) Monocytes # (Manual) D-Dimer ABG pH ABG pO2 ABG HCO3 ABG O2 Saturation ABG Base Excess ABG Hemoglobin Oxyhemoglobin Sodium Potassium Chloride Carbon Dioxide BUN Creatinine Glucose POC Glucose 328 H Lactic Acid Calcium Magnesium AST ALT Lactate Dehydrogenase Total Creatine Kinase 40 L C-Reactive Protein Albumin Urine WBC (Auto) Urine Total Protein Digoxin Salicylates Acetaminophen 12/18/19 12/18/19 12/18/19 14:45 14:45 14:45 WBC RBC Hgb Hct MCV MCH MCHC RDW Plt Count Lymph % (Auto) [place] % (Auto) Eos % (Auto) Lymph # [place] # Eos # Seg Neutrophils % Monocytes % (Manual) Monocytes # (Manual) D-Dimer 534.45 H ABG pH ABG pO2 ABG HCO3 ABG O2 Saturation ABG Base Excess ABG Hemoglobin Oxyhemoglobin Sodium 156 H Potassium Chloride 112.3 H Carbon Dioxide 31 H BUN 32 H Creatinine Glucose 328 H POC Glucose Lactic Acid Calcium Magnesium AST ALT Lactate Dehydrogenase 235 H Total Creatine Kinase C-Reactive Protein 8.50 H Albumin 3.6 L Urine WBC (Auto) Urine Total Protein Digoxin 0.3 L Salicylates < 0.3 L Acetaminophen 12/18/19 12/18/19 12/18/19 14:45 14:45 16:00 WBC RBC Hgb Hct MCV MCH MCHC RDW Plt Count Lymph % (Auto) [place] % (Auto) Eos % (Auto) Lymph # [place] # Eos # Seg Neutrophils % Monocytes % (Manual) Monocytes # (Manual) D-Dimer ABG pH ABG pO2 69.8 L ABG HCO3 31.8 H ABG O2 Saturation ABG Base Excess 5.4 H ABG Hemoglobin 10.0 L Oxyhemoglobin 92.9 L Sodium Potassium Chloride Carbon Dioxide BUN Creatinine Glucose 314 H POC Glucose Lactic Acid Calcium Magnesium AST ALT Lactate Dehydrogenase 236 H Total Creatine Kinase C-Reactive Protein 8.40 H Albumin Urine WBC (Auto) Urine Total Protein Digoxin Salicylates Acetaminophen < 5.0 L 12/18/19 12/18/19 12/18/19 16:35 18:30 22:56 WBC RBC Hgb Hct MCV MCH MCHC RDW Plt Count Lymph % (Auto) [place] % (Auto) Eos % (Auto) Lymph # [place] # Eos # Seg Neutrophils % Monocytes % (Manual) Monocytes # (Manual) D-Dimer ABG pH ABG pO2 ABG HCO3 ABG O2 Saturation ABG Base Excess ABG Hemoglobin Oxyhemoglobin Sodium Potassium Chloride Carbon Dioxide BUN Creatinine Glucose POC Glucose 310 H 353 H Lactic Acid 2.50 H* Calcium Magnesium AST ALT Lactate Dehydrogenase Total Creatine Kinase C-Reactive Protein Albumin Urine WBC (Auto) Urine Total Protein Digoxin Salicylates Acetaminophen 12/19/19 12/19/19 12/19/19 04:13 04:13 06:00 WBC RBC Hgb 10.0 L Hct 34.2 L MCV MCH 25 L MCHC 29 L RDW 19.0 H Plt Count Lymph % (Auto) [place] % (Auto) 10.1 H Eos % (Auto) Lymph # [place] # 1.1 H Eos # Seg Neutrophils % 71.8 H Monocytes % (Manual) Monocytes # (Manual) D-Dimer ABG pH ABG pO2 186.5 H ABG HCO3 27.8 H ABG O2 Saturation 99.1 H ABG Base Excess ABG Hemoglobin 10.4 L Oxyhemoglobin Sodium 157 H Potassium Chloride 119.1 H Carbon Dioxide BUN 26 H Creatinine Glucose 302 H POC Glucose Lactic Acid Calcium 7.9 L Magnesium AST 85 H ALT 61 H Lactate Dehydrogenase Total Creatine Kinase C-Reactive Protein Albumin 3.0 L Urine WBC (Auto) Urine Total Protein Digoxin Salicylates Acetaminophen 12/19/19 12/19/19 12/19/19 08:30 11:55 16:50 WBC RBC Hgb Hct MCV MCH MCHC RDW Plt Count Lymph % (Auto) [place] % (Auto) Eos % (Auto) Lymph # [place] # Eos # Seg Neutrophils % Monocytes % (Manual) Monocytes # (Manual) D-Dimer ABG pH ABG pO2 ABG HCO3 ABG O2 Saturation ABG Base Excess ABG Hemoglobin Oxyhemoglobin Sodium Potassium Chloride Carbon Dioxide BUN Creatinine Glucose POC Glucose 264 H 251 H Lactic Acid Calcium Magnesium AST ALT Lactate Dehydrogenase Total Creatine Kinase C-Reactive Protein Albumin Urine WBC (Auto) 7.0 H Urine Total Protein Digoxin Salicylates Acetaminophen 12/19/19 12/19/19 12/20/19 17:41 23:42 03:35 WBC RBC Hgb Hct MCV MCH MCHC RDW Plt Count Lymph % (Auto) [place] % (Auto) Eos % (Auto) Lymph # [place] # Eos # Seg Neutrophils % Monocytes % (Manual) Monocytes # (Manual) D-Dimer ABG pH ABG pO2 ABG HCO3 27.7 H ABG O2 Saturation ABG Base Excess ABG Hemoglobin 11.6 L Oxyhemoglobin 94.9 L Sodium Potassium Chloride Carbon Dioxide BUN Creatinine Glucose POC Glucose 180 H 205 H Lactic Acid Calcium Magnesium AST ALT Lactate Dehydrogenase Total Creatine Kinase C-Reactive Protein Albumin Urine WBC (Auto) Urine Total Protein Digoxin Salicylates Acetaminophen 12/20/19 12/20/19 12/20/19 04:45 04:45 05:27 WBC RBC Hgb 9.4 L Hct 31.4 L MCV MCH 25 L MCHC 30 L RDW 19.4 H Plt Count Lymph % (Auto) [place] % (Auto) 10.2 H Eos % (Auto) 6.0 H Lymph # 0.9 L [place] # Eos # Seg Neutrophils % Monocytes % (Manual) Monocytes # (Manual) D-Dimer ABG pH ABG pO2 ABG HCO3 ABG O2 Saturation ABG Base Excess ABG Hemoglobin Oxyhemoglobin Sodium 153 H Potassium Chloride 114.6 H Carbon Dioxide BUN Creatinine Glucose 170 H POC Glucose 188 H Lactic Acid Calcium 7.9 L Magnesium AST ALT Lactate Dehydrogenase Total Creatine Kinase C-Reactive Protein Albumin Urine WBC (Auto) Urine Total Protein Digoxin Salicylates Acetaminophen 12/20/19 12/20/19 12/21/19 12:26 18:20 00:20 WBC RBC Hgb Hct MCV MCH MCHC RDW Plt Count Lymph % (Auto) [place] % (Auto) Eos % (Auto) Lymph # [place] # Eos # Seg Neutrophils % Monocytes % (Manual) Monocytes # (Manual) D-Dimer ABG pH ABG pO2 ABG HCO3 ABG O2 Saturation ABG Base Excess ABG Hemoglobin Oxyhemoglobin Sodium Potassium Chloride Carbon Dioxide BUN Creatinine Glucose POC Glucose 200 H 263 H 218 H Lactic Acid Calcium Magnesium AST ALT Lactate Dehydrogenase Total Creatine Kinase C-Reactive Protein Albumin Urine WBC (Auto) Urine Total Protein Digoxin Salicylates Acetaminophen 12/21/19 12/21/19 12/21/19 04:38 05:26 12:35 WBC RBC Hgb Hct MCV MCH MCHC RDW Plt Count Lymph % (Auto) [place] % (Auto) Eos % (Auto) Lymph # [place] # Eos # Seg Neutrophils % Monocytes % (Manual) Monocytes # (Manual) D-Dimer ABG pH ABG pO2 ABG HCO3 ABG O2 Saturation ABG Base Excess ABG Hemoglobin Oxyhemoglobin Sodium 149 H Potassium 3.5 L Chloride 110.5 H Carbon Dioxide BUN Creatinine Glucose 158 H POC Glucose 193 H 193 H Lactic Acid Calcium Magnesium AST ALT Lactate Dehydrogenase Total Creatine Kinase C-Reactive Protein Albumin Urine WBC (Auto) Urine Total Protein Digoxin Salicylates Acetaminophen 12/21/19 12/22/19 12/22/19 18:29 00:03 05:15 WBC RBC Hgb 10.3 L Hct 34.7 L MCV MCH 25 L MCHC 30 L RDW 19.4 H Plt Count Lymph % (Auto) 9.0 L [place] % (Auto) 12.3 H Eos % (Auto) 5.0 H Lymph # 0.5 L [place] # Eos # Seg Neutrophils % 73.2 H Monocytes % (Manual) Monocytes # (Manual) D-Dimer ABG pH ABG pO2 ABG HCO3 ABG O2 Saturation ABG Base Excess ABG Hemoglobin Oxyhemoglobin Sodium Potassium Chloride Carbon Dioxide BUN Creatinine Glucose POC Glucose 186 H 143 H Lactic Acid Calcium Magnesium AST ALT Lactate Dehydrogenase Total Creatine Kinase C-Reactive Protein Albumin Urine WBC (Auto) Urine Total Protein Digoxin Salicylates Acetaminophen 12/22/19 12/22/19 12/22/19 05:15 06:02 12:13 WBC RBC Hgb Hct MCV MCH MCHC RDW Plt Count Lymph % (Auto) [place] % (Auto) Eos % (Auto) Lymph # [place] # Eos # Seg Neutrophils % Monocytes % (Manual) Monocytes # (Manual) D-Dimer ABG pH ABG pO2 ABG HCO3 ABG O2 Saturation ABG Base Excess ABG Hemoglobin Oxyhemoglobin Sodium 152 H Potassium Chloride 113.5 H Carbon Dioxide BUN Creatinine Glucose 126 H POC Glucose 144 H 159 H Lactic Acid Calcium Magnesium AST ALT Lactate Dehydrogenase Total Creatine Kinase C-Reactive Protein Albumin Urine WBC (Auto) Urine Total Protein Digoxin Salicylates Acetaminophen 12/22/19 12/22/19 12/23/19 18:03 23:50 05:27 WBC RBC Hgb Hct MCV MCH MCHC RDW Plt Count Lymph % (Auto) [place] % (Auto) Eos % (Auto) Lymph # [place] # Eos # Seg Neutrophils % Monocytes % (Manual) Monocytes # (Manual) D-Dimer ABG pH ABG pO2 ABG HCO3 ABG O2 Saturation ABG Base Excess ABG Hemoglobin Oxyhemoglobin Sodium Potassium Chloride Carbon Dioxide BUN Creatinine Glucose POC Glucose 140 H 227 H 185 H Lactic Acid Calcium Magnesium AST ALT Lactate Dehydrogenase Total Creatine Kinase C-Reactive Protein Albumin Urine WBC (Auto) Urine Total Protein Digoxin Salicylates Acetaminophen 12/23/19 12/23/19 12/23/19 12:13 16:05 16:40 WBC RBC Hgb Hct MCV MCH MCHC RDW Plt Count Lymph % (Auto) [place] % (Auto) Eos % (Auto) Lymph # [place] # Eos # Seg Neutrophils % Monocytes % (Manual) Monocytes # (Manual) D-Dimer ABG pH 7.259 L ABG pO2 76.2 L ABG HCO3 30.6 H ABG O2 Saturation 94.6 L ABG Base Excess ABG Hemoglobin 11.5 L Oxyhemoglobin 92.2 L Sodium 163 H* D Potassium 3.4 L Chloride 120.1 H Carbon Dioxide BUN Creatinine Glucose 162 H POC Glucose 132 H Lactic Acid Calcium Magnesium AST ALT Lactate Dehydrogenase Total Creatine Kinase C-Reactive Protein Albumin Urine WBC (Auto) Urine Total Protein Digoxin Salicylates Acetaminophen 12/23/19 12/24/19 12/24/19 17:53 00:48 04:20 WBC RBC Hgb Hct MCV MCH MCHC RDW Plt Count Lymph % (Auto) [place] % (Auto) Eos % (Auto) Lymph # [place] # Eos # Seg Neutrophils % Monocytes % (Manual) Monocytes # (Manual) D-Dimer ABG pH ABG pO2 ABG HCO3 30.4 H ABG O2 Saturation ABG Base Excess 3.9 H ABG Hemoglobin 10.3 L Oxyhemoglobin 94.4 L Sodium Potassium Chloride Carbon Dioxide BUN Creatinine Glucose POC Glucose 180 H 174 H Lactic Acid Calcium Magnesium AST ALT Lactate Dehydrogenase Total Creatine Kinase C-Reactive Protein Albumin Urine WBC (Auto) Urine Total Protein Digoxin Salicylates Acetaminophen 12/24/19 12/24/19 12/24/19 04:53 04:53 11:50 WBC RBC Hgb 9.7 L Hct 33.2 L MCV MCH 25 L MCHC 29 L RDW 20.1 H Plt Count Lymph % (Auto) [place] % (Auto) Eos % (Auto) Lymph # [place] # Eos # Seg Neutrophils % Monocytes % (Manual) 15.0 H Monocytes # (Manual) 0.9 H D-Dimer ABG pH ABG pO2 ABG HCO3 ABG O2 Saturation ABG Base Excess ABG Hemoglobin Oxyhemoglobin Sodium 163 H* Potassium 3.2 L Chloride 122.6 H Carbon Dioxide BUN Creatinine Glucose 168 H POC Glucose 190 H Lactic Acid Calcium Magnesium AST ALT Lactate Dehydrogenase Total Creatine Kinase C-Reactive Protein Albumin Urine WBC (Auto) Urine Total Protein Digoxin Salicylates Acetaminophen 12/24/19 12/24/19 12/24/19 15:00 16:28 21:15 WBC RBC Hgb Hct MCV MCH MCHC RDW Plt Count Lymph % (Auto) [place] % (Auto) Eos % (Auto) Lymph # [place] # Eos # Seg Neutrophils % Monocytes % (Manual) Monocytes # (Manual) D-Dimer ABG pH ABG pO2 ABG HCO3 ABG O2 Saturation ABG Base Excess ABG Hemoglobin Oxyhemoglobin Sodium 165 H* D 163 H* Potassium Chloride Carbon Dioxide BUN Creatinine Glucose POC Glucose 160 H Lactic Acid Calcium Magnesium AST ALT Lactate Dehydrogenase Total Creatine Kinase C-Reactive Protein Albumin Urine WBC (Auto) Urine Total Protein Digoxin Salicylates Acetaminophen 12/25/19 12/25/19 12/25/19 00:31 05:38 05:46 WBC RBC Hgb 9.7 L Hct 32.5 L MCV MCH 25 L MCHC 30 L RDW 19.4 H Plt Count Lymph % (Auto) [place] % (Auto) Eos % (Auto) Lymph # [place] # Eos # Seg Neutrophils % Monocytes % (Manual) Monocytes # (Manual) D-Dimer ABG pH ABG pO2 ABG HCO3 ABG O2 Saturation ABG Base Excess ABG Hemoglobin Oxyhemoglobin Sodium Potassium Chloride Carbon Dioxide BUN Creatinine Glucose POC Glucose 182 H 194 H Lactic Acid Calcium Magnesium AST ALT Lactate Dehydrogenase Total Creatine Kinase C-Reactive Protein Albumin Urine WBC (Auto) Urine Total Protein Digoxin Salicylates Acetaminophen 12/25/19 12/25/19 12/25/19 05:46 11:35 11:38 WBC RBC Hgb Hct MCV MCH MCHC RDW Plt Count Lymph % (Auto) [place] % (Auto) Eos % (Auto) Lymph # [place] # Eos # Seg Neutrophils % Monocytes % (Manual) Monocytes # (Manual) D-Dimer ABG pH 7.330 L ABG pO2 65.7 L ABG HCO3 32.6 H ABG O2 Saturation 92.5 L ABG Base Excess 5.3 H ABG Hemoglobin 10.4 L Oxyhemoglobin 90.0 L Sodium 166 H* Potassium 2.9 L* Chloride 124.5 H Carbon Dioxide BUN Creatinine Glucose 190 H POC Glucose 192 H Lactic Acid Calcium Magnesium AST ALT Lactate Dehydrogenase Total Creatine Kinase C-Reactive Protein Albumin Urine WBC (Auto) Urine Total Protein Digoxin Salicylates Acetaminophen 12/25/19 12/25/19 12/25/19 13:01 16:45 17:20 WBC RBC Hgb Hct MCV MCH MCHC RDW Plt Count Lymph % (Auto) [place] % (Auto) Eos % (Auto) Lymph # [place] # Eos # Seg Neutrophils % Monocytes % (Manual) Monocytes # (Manual) D-Dimer ABG pH 7.296 L ABG pO2 101.5 H ABG HCO3 33.2 H ABG O2 Saturation ABG Base Excess 5.3 H ABG Hemoglobin 9.6 L Oxyhemoglobin 94.6 L Sodium 174 H* Potassium Chloride Carbon Dioxide BUN Creatinine Glucose POC Glucose Lactic Acid Calcium Magnesium AST ALT Lactate Dehydrogenase Total Creatine Kinase C-Reactive Protein Albumin Urine WBC (Auto) Urine Total Protein < 4 L Digoxin Salicylates Acetaminophen 12/25/19 12/25/19 12/26/19 17:48 18:50 00:43 WBC RBC Hgb Hct MCV MCH MCHC RDW Plt Count Lymph % (Auto) [place] % (Auto) Eos % (Auto) Lymph # [place] # Eos # Seg Neutrophils % Monocytes % (Manual) Monocytes # (Manual) D-Dimer ABG pH ABG pO2 ABG HCO3 ABG O2 Saturation ABG Base Excess ABG Hemoglobin Oxyhemoglobin Sodium 166 H* 164 H* Potassium Chloride 127.3 H Carbon Dioxide BUN Creatinine Glucose 220 H POC Glucose 252 H Lactic Acid Calcium Magnesium AST ALT Lactate Dehydrogenase Total Creatine Kinase C-Reactive Protein Albumin Urine WBC (Auto) Urine Total Protein Digoxin Salicylates Acetaminophen 12/26/19 12/26/19 12/26/19 05:31 08:07 08:07 WBC 4.3 L RBC Hgb 9.6 L Hct 32.1 L MCV MCH 26 L MCHC 30 L RDW 20.5 H Plt Count Lymph % (Auto) [place] % (Auto) Eos % (Auto) Lymph # [place] # Eos # Seg Neutrophils % Monocytes % (Manual) Monocytes # (Manual) D-Dimer ABG pH ABG pO2 ABG HCO3 ABG O2 Saturation ABG Base Excess ABG Hemoglobin Oxyhemoglobin Sodium 162 H* Potassium Chloride 122.1 H Carbon Dioxide BUN Creatinine Glucose 247 H POC Glucose 187 H Lactic Acid Calcium Magnesium AST ALT Lactate Dehydrogenase Total Creatine Kinase C-Reactive Protein Albumin Urine WBC (Auto) Urine Total Protein Digoxin Salicylates Acetaminophen 12/26/19 12/26/19 12/26/19 08:07 12:20 16:25 WBC RBC Hgb Hct MCV MCH MCHC RDW Plt Count Lymph % (Auto) [place] % (Auto) Eos % (Auto) Lymph # [place] # Eos # Seg Neutrophils % Monocytes % (Manual) Monocytes # (Manual) D-Dimer ABG pH 7.290 L ABG pO2 73.2 L ABG HCO3 33.2 H ABG O2 Saturation 94.9 L ABG Base Excess 5.2 H ABG Hemoglobin 10.0 L Oxyhemoglobin 92.5 L Sodium 159 H Potassium Chloride Carbon Dioxide BUN Creatinine Glucose POC Glucose 234 H Lactic Acid Calcium Magnesium AST ALT Lactate Dehydrogenase Total Creatine Kinase C-Reactive Protein Albumin Urine WBC (Auto) Urine Total Protein Digoxin Salicylates Acetaminophen 12/26/19 12/26/19 12/26/19 17:33 22:35 23:30 WBC RBC Hgb Hct MCV MCH MCHC RDW Plt Count Lymph % (Auto) [place] % (Auto) Eos % (Auto) Lymph # [place] # Eos # Seg Neutrophils % Monocytes % (Manual) Monocytes # (Manual) D-Dimer ABG pH ABG pO2 ABG HCO3 ABG O2 Saturation ABG Base Excess ABG Hemoglobin Oxyhemoglobin Sodium Potassium Chloride Carbon Dioxide BUN Creatinine Glucose POC Glucose 244 H 208 H 287 H Lactic Acid Calcium Magnesium AST ALT Lactate Dehydrogenase Total Creatine Kinase C-Reactive Protein Albumin Urine WBC (Auto) Urine Total Protein Digoxin Salicylates Acetaminophen 12/27/19 12/27/19 12/27/19 03:48 03:48 03:48 WBC RBC Hgb 10.1 L Hct 35.4 L MCV MCH 25 L MCHC 29 L RDW 20.1 H Plt Count Lymph % (Auto) [place] % (Auto) Eos % (Auto) Lymph # [place] # Eos # Seg Neutrophils % Monocytes % (Manual) Monocytes # (Manual) D-Dimer ABG pH ABG pO2 ABG HCO3 ABG O2 Saturation ABG Base Excess ABG Hemoglobin Oxyhemoglobin Sodium 160 H Potassium Chloride 118.8 H Carbon Dioxide 33 H BUN Creatinine Glucose 217 H POC Glucose Lactic Acid Calcium Magnesium 2.70 H AST ALT Lactate Dehydrogenase Total Creatine Kinase C-Reactive Protein Albumin Urine WBC (Auto) Urine Total Protein Digoxin Salicylates Acetaminophen 12/27/19 12/27/19 12/27/19 05:50 11:58 16:05 WBC RBC Hgb Hct MCV MCH MCHC RDW Plt Count Lymph % (Auto) [place] % (Auto) Eos % (Auto) Lymph # [place] # Eos # Seg Neutrophils % Monocytes % (Manual) Monocytes # (Manual) D-Dimer ABG pH 7.180 L* ABG pO2 73.6 L ABG HCO3 34.8 H ABG O2 Saturation 92.7 L ABG Base Excess 3.8 H ABG Hemoglobin 12.0 L Oxyhemoglobin 90.2 L Sodium Potassium Chloride Carbon Dioxide BUN Creatinine Glucose POC Glucose 224 H 218 H Lactic Acid Calcium Magnesium AST ALT Lactate Dehydrogenase Total Creatine Kinase C-Reactive Protein Albumin Urine WBC (Auto) Urine Total Protein Digoxin Salicylates Acetaminophen 12/27/19 12/27/19 12/27/19 18:05 19:50 21:53 WBC RBC Hgb Hct MCV MCH MCHC RDW Plt Count Lymph % (Auto) [place] % (Auto) Eos % (Auto) Lymph # [place] # Eos # Seg Neutrophils % Monocytes % (Manual) Monocytes # (Manual) D-Dimer ABG pH 7.328 L ABG pO2 49.9 L ABG HCO3 33.3 H ABG O2 Saturation 87.1 L ABG Base Excess 5.7 H ABG Hemoglobin 11.2 L Oxyhemoglobin 84.8 L Sodium Potassium Chloride Carbon Dioxide BUN Creatinine Glucose POC Glucose 214 H 178 H Lactic Acid Calcium Magnesium AST ALT Lactate Dehydrogenase Total Creatine Kinase C-Reactive Protein Albumin Urine WBC (Auto) Urine Total Protein Digoxin Salicylates Acetaminophen 12/28/19 12/28/19 12/28/19 00:42 04:37 04:37 WBC RBC Hgb 9.8 L Hct 33.5 L MCV MCH 25 L MCHC 29 L RDW 21.1 H Plt Count Lymph % (Auto) [place] % (Auto) Eos % (Auto) Lymph # [place] # Eos # Seg Neutrophils % Monocytes % (Manual) Monocytes # (Manual) D-Dimer ABG pH ABG pO2 ABG HCO3 ABG O2 Saturation ABG Base Excess ABG Hemoglobin Oxyhemoglobin Sodium 157 H Potassium 3.4 L Chloride 117.5 H Carbon Dioxide BUN Creatinine Glucose 193 H POC Glucose 157 H Lactic Acid Calcium Magnesium AST ALT Lactate Dehydrogenase Total Creatine Kinase C-Reactive Protein Albumin Urine WBC (Auto) Urine Total Protein Digoxin Salicylates Acetaminophen 12/28/19 12/28/19 12/28/19 04:52 05:19 12:05 WBC RBC Hgb Hct MCV MCH MCHC RDW Plt Count Lymph % (Auto) [place] % (Auto) Eos % (Auto) Lymph # [place] # Eos # Seg Neutrophils % Monocytes % (Manual) Monocytes # (Manual) D-Dimer ABG pH ABG pO2 51.7 L ABG HCO3 28.7 H ABG O2 Saturation 89.9 L ABG Base Excess 4.1 H ABG Hemoglobin 9.7 L Oxyhemoglobin 87.7 L Sodium Potassium Chloride Carbon Dioxide BUN Creatinine Glucose POC Glucose 202 H 248 H Lactic Acid Calcium Magnesium AST ALT Lactate Dehydrogenase Total Creatine Kinase C-Reactive Protein Albumin Urine WBC (Auto) Urine Total Protein Digoxin Salicylates Acetaminophen 12/28/19 12/28/19 12/28/19 18:11 21:15 23:22 WBC RBC Hgb Hct MCV MCH MCHC RDW Plt Count Lymph % (Auto) [place] % (Auto) Eos % (Auto) Lymph # [place] # Eos # Seg Neutrophils % Monocytes % (Manual) Monocytes # (Manual) D-Dimer ABG pH ABG pO2 ABG HCO3 ABG O2 Saturation ABG Base Excess ABG Hemoglobin Oxyhemoglobin Sodium Potassium Chloride Carbon Dioxide BUN Creatinine Glucose POC Glucose 226 H 217 H 227 H Lactic Acid Calcium Magnesium AST ALT Lactate Dehydrogenase Total Creatine Kinase C-Reactive Protein Albumin Urine WBC (Auto) Urine Total Protein Digoxin Salicylates Acetaminophen 12/29/19 12/29/19 12/29/19 04:09 04:59 04:59 WBC 11.1 H RBC Hgb 9.3 L Hct 31.1 L MCV 81 L MCH 24 L MCHC 30 L RDW 19.9 H Plt Count Lymph % (Auto) [place] % (Auto) Eos % (Auto) Lymph # [place] # Eos # Seg Neutrophils % Monocytes % (Manual) Monocytes # (Manual) D-Dimer ABG pH 7.473 H ABG pO2 126.1 H ABG HCO3 29.2 H ABG O2 Saturation ABG Base Excess 5.1 H ABG Hemoglobin 8.4 L Oxyhemoglobin Sodium 157 H Potassium 3.2 L Chloride 118.2 H Carbon Dioxide BUN Creatinine 1.7 H Glucose 229 H POC Glucose Lactic Acid Calcium Magnesium AST ALT Lactate Dehydrogenase Total Creatine Kinase C-Reactive Protein Albumin Urine WBC (Auto) Urine Total Protein Digoxin Salicylates Acetaminophen 12/29/19 12/29/19 12/29/19 05:15 12:13 17:59 WBC RBC Hgb Hct MCV MCH MCHC RDW Plt Count Lymph % (Auto) [place] % (Auto) Eos % (Auto) Lymph # [place] # Eos # Seg Neutrophils % Monocytes % (Manual) Monocytes # (Manual) D-Dimer ABG pH ABG pO2 ABG HCO3 ABG O2 Saturation ABG Base Excess ABG Hemoglobin Oxyhemoglobin Sodium Potassium Chloride Carbon Dioxide BUN Creatinine Glucose POC Glucose 221 H 392 H 365 H Lactic Acid Calcium Magnesium AST ALT Lactate Dehydrogenase Total Creatine Kinase C-Reactive Protein Albumin Urine WBC (Auto) Urine Total Protein Digoxin Salicylates Acetaminophen 12/29/19 12/29/19 12/30/19 20:25 23:38 04:45 WBC RBC Hgb Hct MCV MCH MCHC RDW Plt Count Lymph % (Auto) [place] % (Auto) Eos % (Auto) Lymph # [place] # Eos # Seg Neutrophils % Monocytes % (Manual) Monocytes # (Manual) D-Dimer ABG pH 7.261 L 7.343 L ABG pO2 60.3 L 54.3 L ABG HCO3 32.1 H 30.9 H ABG O2 Saturation 87.6 L 88.3 L ABG Base Excess 3.7 H 4.0 H ABG Hemoglobin 9.7 L 11.6 L Oxyhemoglobin 85.2 L 86.0 L Sodium Potassium Chloride Carbon Dioxide BUN Creatinine Glucose POC Glucose 402 H Lactic Acid Calcium Magnesium AST ALT Lactate Dehydrogenase Total Creatine Kinase C-Reactive Protein Albumin Urine WBC (Auto) Urine Total Protein Digoxin Salicylates Acetaminophen 12/30/19 12/30/19 12/30/19 05:06 05:06 05:06 WBC 11.7 H RBC Hgb 9.4 L Hct 32.4 L MCV 83 L MCH 24 L MCHC 29 L RDW 20.2 H Plt Count Lymph % (Auto) [place] % (Auto) Eos % (Auto) Lymph # [place] # Eos # Seg Neutrophils % Monocytes % (Manual) Monocytes # (Manual) D-Dimer ABG pH ABG pO2 ABG HCO3 ABG O2 Saturation ABG Base Excess ABG Hemoglobin Oxyhemoglobin Sodium 159 H Potassium 3.2 L Chloride 120.1 H Carbon Dioxide 31 H BUN Creatinine 1.9 H Glucose 404 H POC Glucose Lactic Acid Calcium Magnesium 2.60 H AST ALT Lactate Dehydrogenase Total Creatine Kinase C-Reactive Protein Albumin Urine WBC (Auto) Urine Total Protein Digoxin Salicylates Acetaminophen 12/30/19 12/30/19 12/30/19 06:26 12:29 13:44 WBC RBC Hgb Hct MCV MCH MCHC RDW Plt Count Lymph % (Auto) [place] % (Auto) Eos % (Auto) Lymph # [place] # Eos # Seg Neutrophils % Monocytes % (Manual) Monocytes # (Manual) D-Dimer ABG pH ABG pO2 ABG HCO3 ABG O2 Saturation ABG Base Excess ABG Hemoglobin Oxyhemoglobin Sodium Potassium Chloride Carbon Dioxide BUN Creatinine Glucose POC Glucose 399 H 469 H > 500 H Lactic Acid Calcium Magnesium AST ALT Lactate Dehydrogenase Total Creatine Kinase C-Reactive Protein Albumin Urine WBC (Auto) Urine Total Protein Digoxin Salicylates Acetaminophen 12/30/19 12/30/19 12/30/19 13:51 16:32 18:05 WBC RBC Hgb Hct MCV MCH MCHC RDW Plt Count Lymph % (Auto) [place] % (Auto) Eos % (Auto) Lymph # [place] # Eos # Seg Neutrophils % Monocytes % (Manual) Monocytes # (Manual) D-Dimer ABG pH ABG pO2 ABG HCO3 ABG O2 Saturation ABG Base Excess ABG Hemoglobin Oxyhemoglobin Sodium Potassium Chloride Carbon Dioxide BUN Creatinine Glucose POC Glucose > 500 H 445 H 429 H Lactic Acid Calcium Magnesium AST ALT Lactate Dehydrogenase Total Creatine Kinase C-Reactive Protein Albumin Urine WBC (Auto) Urine Total Protein Digoxin Salicylates Acetaminophen 12/30/19 12/30/19 12/31/19 21:42 Unknown 00:00 WBC RBC Hgb Hct MCV MCH MCHC RDW Plt Count Lymph % (Auto) [place] % (Auto) Eos % (Auto) Lymph # [place] # Eos # Seg Neutrophils % Monocytes % (Manual) Monocytes # (Manual) D-Dimer ABG pH ABG pO2 ABG HCO3 ABG O2 Saturation ABG Base Excess ABG Hemoglobin Oxyhemoglobin Sodium Potassium Chloride Carbon Dioxide BUN Creatinine Glucose 498 H POC Glucose 371 H 452 H Lactic Acid Calcium Magnesium AST ALT Lactate Dehydrogenase Total Creatine Kinase C-Reactive Protein Albumin Urine WBC (Auto) Urine Total Protein Digoxin Salicylates Acetaminophen 12/31/19 12/31/19 12/31/19 04:31 05:42 08:01 WBC RBC Hgb Hct MCV MCH MCHC RDW Plt Count Lymph % (Auto) [place] % (Auto) Eos % (Auto) Lymph # [place] # Eos # Seg Neutrophils % Monocytes % (Manual) Monocytes # (Manual) D-Dimer ABG pH 7.251 L ABG pO2 62.4 L ABG HCO3 31.1 H ABG O2 Saturation 88.7 L ABG Base Excess ABG Hemoglobin 8.7 L Oxyhemoglobin 86.4 L Sodium Potassium Chloride Carbon Dioxide BUN Creatinine Glucose POC Glucose 443 H 443 H Lactic Acid Calcium Magnesium AST ALT Lactate Dehydrogenase Total Creatine Kinase C-Reactive Protein Albumin Urine WBC (Auto) Urine Total Protein Digoxin Salicylates Acetaminophen 12/31/19 12/31/19 12/31/19 09:08 10:00 11:50 WBC RBC Hgb Hct MCV MCH MCHC RDW Plt Count Lymph % (Auto) [place] % (Auto) Eos % (Auto) Lymph # [place] # Eos # Seg Neutrophils % Monocytes % (Manual) Monocytes # (Manual) D-Dimer ABG pH 7.325 L ABG pO2 97.2 H ABG HCO3 30.1 H ABG O2 Saturation ABG Base Excess 3.4 H ABG Hemoglobin 8.3 L Oxyhemoglobin 94.7 L Sodium 151 H D Potassium 3.2 L Chloride 113.0 H Carbon Dioxide BUN 23 H Creatinine 1.8 H Glucose 373 H POC Glucose 465 H Lactic Acid Calcium Magnesium AST ALT Lactate Dehydrogenase Total Creatine Kinase C-Reactive Protein Albumin Urine WBC (Auto) Urine Total Protein Digoxin Salicylates Acetaminophen 12/31/19 12/31/19 12/31/19 12:25 13:33 18:30 WBC RBC Hgb Hct MCV MCH MCHC RDW Plt Count Lymph % (Auto) [place] % (Auto) Eos % (Auto) Lymph # [place] # Eos # Seg Neutrophils % Monocytes % (Manual) Monocytes # (Manual) D-Dimer ABG pH ABG pO2 ABG HCO3 ABG O2 Saturation ABG Base Excess ABG Hemoglobin Oxyhemoglobin Sodium Potassium Chloride Carbon Dioxide BUN Creatinine Glucose POC Glucose 379 H 311 H 349 H Lactic Acid Calcium Magnesium AST ALT Lactate Dehydrogenase Total Creatine Kinase C-Reactive Protein Albumin Urine WBC (Auto) Urine Total Protein Digoxin Salicylates Acetaminophen 12/31/19 12/31/19 01/01/20 22:29 23:30 02:58 WBC RBC Hgb Hct MCV MCH MCHC RDW Plt Count Lymph % (Auto) [place] % (Auto) Eos % (Auto) Lymph # [place] # Eos # Seg Neutrophils % Monocytes % (Manual) Monocytes # (Manual) D-Dimer ABG pH ABG pO2 ABG HCO3 ABG O2 Saturation ABG Base Excess ABG Hemoglobin Oxyhemoglobin Sodium Potassium Chloride Carbon Dioxide BUN Creatinine Glucose POC Glucose 256 H 266 H 248 H Lactic Acid Calcium Magnesium AST ALT Lactate Dehydrogenase Total Creatine Kinase C-Reactive Protein Albumin Urine WBC (Auto) Urine Total Protein Digoxin Salicylates Acetaminophen 01/01/20 01/01/20 01/01/20 04:19 06:56 10:52 WBC RBC Hgb Hct MCV MCH MCHC RDW Plt Count Lymph % (Auto) [place] % (Auto) Eos % (Auto) Lymph # [place] # Eos # Seg Neutrophils % Monocytes % (Manual) Monocytes # (Manual) D-Dimer ABG pH ABG pO2 90.7 H ABG HCO3 29.1 H ABG O2 Saturation ABG Base Excess 3.8 H ABG Hemoglobin 8.1 L Oxyhemoglobin 94.5 L Sodium Potassium Chloride Carbon Dioxide BUN Creatinine Glucose POC Glucose 303 H 244 H Lactic Acid Calcium Magnesium AST ALT Lactate Dehydrogenase Total Creatine Kinase C-Reactive Protein Albumin Urine WBC (Auto) Urine Total Protein Digoxin Salicylates Acetaminophen 01/01/20 01/01/20 01/01/20 13:39 14:49 18:42 WBC RBC Hgb Hct MCV MCH MCHC RDW Plt Count Lymph % (Auto) [place] % (Auto) Eos % (Auto) Lymph # [place] # Eos # Seg Neutrophils % Monocytes % (Manual) Monocytes # (Manual) D-Dimer ABG pH ABG pO2 ABG HCO3 ABG O2 Saturation ABG Base Excess ABG Hemoglobin Oxyhemoglobin Sodium 147 H Potassium Chloride 107.1 H Carbon Dioxide BUN 28 H Creatinine Glucose 207 H POC Glucose 263 H 188 H Lactic Acid Calcium Magnesium AST ALT Lactate Dehydrogenase Total Creatine Kinase C-Reactive Protein Albumin Urine WBC (Auto) Urine Total Protein Digoxin Salicylates Acetaminophen 01/02/20 01/02/20 01/02/20 02:22 03:58 05:00 WBC RBC 3.31 L Hgb 8.0 L Hct 26.9 L MCV 81 L MCH 24 L MCHC 30 L RDW 19.4 H Plt Count Lymph % (Auto) [place] % (Auto) 9.4 H Eos % (Auto) 11.2 H Lymph # [place] # Eos # 0.8 H Seg Neutrophils % Monocytes % (Manual) Monocytes # (Manual) D-Dimer ABG pH ABG pO2 63.0 L ABG HCO3 31.6 H ABG O2 Saturation 91.8 L ABG Base Excess 5.5 H ABG Hemoglobin 8.6 L Oxyhemoglobin 89.6 L Sodium Potassium Chloride Carbon Dioxide BUN Creatinine Glucose POC Glucose 196 H Lactic Acid Calcium Magnesium AST ALT Lactate Dehydrogenase Total Creatine Kinase C-Reactive Protein Albumin Urine WBC (Auto) Urine Total Protein Digoxin Salicylates Acetaminophen 01/02/20 01/02/20 01/02/20 05:40 10:26 13:57 WBC RBC Hgb Hct MCV MCH MCHC RDW Plt Count Lymph % (Auto) [place] % (Auto) Eos % (Auto) Lymph # [place] # Eos # Seg Neutrophils % Monocytes % (Manual) Monocytes # (Manual) D-Dimer ABG pH ABG pO2 ABG HCO3 ABG O2 Saturation ABG Base Excess ABG Hemoglobin Oxyhemoglobin Sodium Potassium Chloride Carbon Dioxide BUN Creatinine Glucose POC Glucose 189 H 157 H 178 H Lactic Acid Calcium Magnesium AST ALT Lactate Dehydrogenase Total Creatine Kinase C-Reactive Protein Albumin Urine WBC (Auto) Urine Total Protein Digoxin Salicylates Acetaminophen 01/02/20 01/03/20 01/03/20 21:27 03:12 05:26 WBC RBC Hgb Hct MCV MCH MCHC RDW Plt Count Lymph % (Auto) [place] % (Auto) Eos % (Auto) Lymph # [place] # Eos # Seg Neutrophils % Monocytes % (Manual) Monocytes # (Manual) D-Dimer ABG pH 7.473 H ABG pO2 109.6 H ABG HCO3 30.4 H ABG O2 Saturation ABG Base Excess 6.2 H ABG Hemoglobin 9.9 L Oxyhemoglobin Sodium Potassium Chloride Carbon Dioxide BUN Creatinine Glucose POC Glucose 131 H 133 H Lactic Acid Calcium Magnesium AST ALT Lactate Dehydrogenase Total Creatine Kinase C-Reactive Protein Albumin Urine WBC (Auto) Urine Total Protein Digoxin Salicylates Acetaminophen 01/03/20 01/03/20 01/03/20 05:40 05:40 15:01 WBC RBC 3.45 L Hgb 8.3 L Hct 27.3 L MCV 79 L MCH 24 L MCHC 30 L RDW 19.3 H Plt Count Lymph % (Auto) [place] % (Auto) Eos % (Auto) Lymph # [place] # Eos # Seg Neutrophils % Monocytes % (Manual) Monocytes # (Manual) D-Dimer ABG pH ABG pO2 ABG HCO3 ABG O2 Saturation ABG Base Excess ABG Hemoglobin Oxyhemoglobin Sodium 151 H Potassium Chloride 111.8 H Carbon Dioxide 31 H BUN 37 H Creatinine 1.8 H Glucose 187 H POC Glucose 164 H Lactic Acid Calcium Magnesium AST ALT Lactate Dehydrogenase Total Creatine Kinase C-Reactive Protein Albumin Urine WBC (Auto) Urine Total Protein Digoxin Salicylates Acetaminophen 01/03/20 01/03/20 01/04/20 18:15 22:45 02:11 WBC RBC Hgb Hct MCV MCH MCHC RDW Plt Count Lymph % (Auto) [place] % (Auto) Eos % (Auto) Lymph # [place] # Eos # Seg Neutrophils % Monocytes % (Manual) Monocytes # (Manual) D-Dimer ABG pH ABG pO2 ABG HCO3 ABG O2 Saturation ABG Base Excess ABG Hemoglobin Oxyhemoglobin Sodium Potassium Chloride Carbon Dioxide BUN Creatinine Glucose POC Glucose 184 H 176 H 206 H Lactic Acid Calcium Magnesium AST ALT Lactate Dehydrogenase Total Creatine Kinase C-Reactive Protein Albumin Urine WBC (Auto) Urine Total Protein Digoxin Salicylates Acetaminophen 01/04/20 01/04/20 01/04/20 03:16 05:15 10:53 WBC RBC Hgb Hct MCV MCH MCHC RDW Plt Count Lymph % (Auto) [place] % (Auto) Eos % (Auto) Lymph # [place] # Eos # Seg Neutrophils % Monocytes % (Manual) Monocytes # (Manual) D-Dimer ABG pH 7.282 L ABG pO2 73.2 L ABG HCO3 ABG O2 Saturation 94.5 L ABG Base Excess -6.4 L ABG Hemoglobin 10.9 L Oxyhemoglobin 92.1 L Sodium Potassium Chloride Carbon Dioxide BUN Creatinine Glucose POC Glucose 139 H 224 H Lactic Acid Calcium Magnesium AST ALT Lactate Dehydrogenase Total Creatine Kinase C-Reactive Protein Albumin Urine WBC (Auto) Urine Total Protein Digoxin Salicylates Acetaminophen 01/04/20 01/04/20 01/04/20 15:47 18:05 22:07 WBC RBC Hgb Hct MCV MCH MCHC RDW Plt Count Lymph % (Auto) [place] % (Auto) Eos % (Auto) Lymph # [place] # Eos # Seg Neutrophils % Monocytes % (Manual) Monocytes # (Manual) D-Dimer ABG pH ABG pO2 ABG HCO3 ABG O2 Saturation ABG Base Excess ABG Hemoglobin Oxyhemoglobin Sodium Potassium Chloride Carbon Dioxide BUN Creatinine Glucose POC Glucose 135 H 117 H 108 H Lactic Acid Calcium Magnesium AST ALT Lactate Dehydrogenase Total Creatine Kinase C-Reactive Protein Albumin Urine WBC (Auto) Urine Total Protein Digoxin Salicylates Acetaminophen 01/04/20 01/04/20 01/05/20 Unknown Unknown 02:04 WBC RBC 3.46 L Hgb 8.2 L Hct 27.8 L MCV 80 L MCH 24 L MCHC 30 L RDW 19.7 H Plt Count Lymph % (Auto) [place] % (Auto) Eos % (Auto) Lymph # [place] # Eos # Seg Neutrophils % Monocytes % (Manual) Monocytes # (Manual) D-Dimer ABG pH ABG pO2 ABG HCO3 ABG O2 Saturation ABG Base Excess ABG Hemoglobin Oxyhemoglobin Sodium 150 H Potassium Chloride 110 H Carbon Dioxide 32 H BUN 32 H Creatinine Glucose 309 H POC Glucose 140 H Lactic Acid Calcium Magnesium AST ALT Lactate Dehydrogenase Total Creatine Kinase C-Reactive Protein Albumin Urine WBC (Auto) Urine Total Protein Digoxin Salicylates Acetaminophen 01/05/20 01/05/20 01/05/20 03:31 03:36 03:36 WBC RBC 3.46 L Hgb 8.4 L Hct 26.9 L MCV 78 L MCH 24 L MCHC 31 L RDW 19.0 H Plt Count Lymph % (Auto) [place] % (Auto) Eos % (Auto) Lymph # [place] # Eos # Seg Neutrophils % Monocytes % (Manual) Monocytes # (Manual) D-Dimer ABG pH 7.454 H ABG pO2 113.0 H ABG HCO3 30.5 H ABG O2 Saturation ABG Base Excess 6.0 H ABG Hemoglobin 8.5 L Oxyhemoglobin Sodium 150 H Potassium Chloride 110.3 H Carbon Dioxide BUN 30 H Creatinine Glucose 148 H POC Glucose Lactic Acid Calcium Magnesium AST ALT Lactate Dehydrogenase Total Creatine Kinase C-Reactive Protein Albumin Urine WBC (Auto) Urine Total Protein Digoxin Salicylates Acetaminophen 01/05/20 01/05/20 01/05/20 05:21 09:56 11:45 WBC RBC Hgb Hct MCV MCH MCHC RDW Plt Count Lymph % (Auto) [place] % (Auto) Eos % (Auto) Lymph # [place] # Eos # Seg Neutrophils % Monocytes % (Manual) Monocytes # (Manual) D-Dimer ABG pH ABG pO2 ABG HCO3 ABG O2 Saturation ABG Base Excess ABG Hemoglobin Oxyhemoglobin Sodium Potassium Chloride Carbon Dioxide BUN Creatinine Glucose POC Glucose 142 H 129 H 174 H Lactic Acid Calcium Magnesium AST ALT Lactate Dehydrogenase Total Creatine Kinase C-Reactive Protein Albumin Urine WBC (Auto) Urine Total Protein Digoxin Salicylates Acetaminophen 01/05/20 01/05/20 01/05/20 13:30 14:00 17:41 WBC RBC Hgb Hct MCV MCH MCHC RDW Plt Count Lymph % (Auto) [place] % (Auto) Eos % (Auto) Lymph # [place] # Eos # Seg Neutrophils % Monocytes % (Manual) Monocytes # (Manual) D-Dimer ABG pH ABG pO2 ABG HCO3 ABG O2 Saturation ABG Base Excess ABG Hemoglobin Oxyhemoglobin Sodium Potassium Chloride Carbon Dioxide BUN 26 H Creatinine 1.6 H Glucose 302 H POC Glucose 168 H 136 H Lactic Acid Calcium Magnesium AST ALT Lactate Dehydrogenase Total Creatine Kinase C-Reactive Protein Albumin Urine WBC (Auto) Urine Total Protein Digoxin Salicylates Acetaminophen 01/05/20 01/05/20 01/06/20 20:38 23:32 03:50 WBC RBC Hgb Hct MCV MCH MCHC RDW Plt Count Lymph % (Auto) [place] % (Auto) Eos % (Auto) Lymph # [place] # Eos # Seg Neutrophils % Monocytes % (Manual) Monocytes # (Manual) D-Dimer ABG pH ABG pO2 76.2 L ABG HCO3 30.1 H ABG O2 Saturation ABG Base Excess 5.1 H ABG Hemoglobin 9.5 L Oxyhemoglobin 93.8 L Sodium Potassium Chloride Carbon Dioxide BUN Creatinine Glucose POC Glucose 124 H 163 H Lactic Acid Calcium Magnesium AST ALT Lactate Dehydrogenase Total Creatine Kinase C-Reactive Protein Albumin Urine WBC (Auto) Urine Total Protein Digoxin Salicylates Acetaminophen 01/06/20 01/06/20 01/06/20 04:09 04:58 04:58 WBC RBC Hgb 8.8 L Hct 28.7 L MCV 78 L MCH 24 L MCHC 31 L RDW 18.7 H Plt Count 522 H Lymph % (Auto) [place] % (Auto) Eos % (Auto) Lymph # [place] # Eos # Seg Neutrophils % Monocytes % (Manual) Monocytes # (Manual) D-Dimer ABG pH ABG pO2 ABG HCO3 ABG O2 Saturation ABG Base Excess ABG Hemoglobin Oxyhemoglobin Sodium 150 H D Potassium Chloride 109.3 H Carbon Dioxide BUN 25 H Creatinine Glucose 55 L POC Glucose 65 L Lactic Acid Calcium Magnesium AST ALT Lactate Dehydrogenase Total Creatine Kinase C-Reactive Protein Albumin Urine WBC (Auto) Urine Total Protein Digoxin Salicylates Acetaminophen 01/06/20 01/06/20 01/06/20 05:01 14:10 17:49 WBC RBC Hgb Hct MCV MCH MCHC RDW Plt Count Lymph % (Auto) [place] % (Auto) Eos % (Auto) Lymph # [place] # Eos # Seg Neutrophils % Monocytes % (Manual) Monocytes # (Manual) D-Dimer ABG pH ABG pO2 ABG HCO3 ABG O2 Saturation ABG Base Excess ABG Hemoglobin Oxyhemoglobin Sodium Potassium Chloride Carbon Dioxide BUN Creatinine Glucose POC Glucose 60 L 119 H 131 H Lactic Acid Calcium Magnesium AST ALT Lactate Dehydrogenase Total Creatine Kinase C-Reactive Protein Albumin Urine WBC (Auto) Urine Total Protein Digoxin Salicylates Acetaminophen 01/06/20 01/07/20 01/07/20 21:08 02:11 05:19 WBC RBC Hgb Hct MCV MCH MCHC RDW Plt Count Lymph % (Auto) [place] % (Auto) Eos % (Auto) Lymph # [place] # Eos # Seg Neutrophils % Monocytes % (Manual) Monocytes # (Manual) D-Dimer ABG pH ABG pO2 ABG HCO3 ABG O2 Saturation ABG Base Excess ABG Hemoglobin Oxyhemoglobin Sodium Potassium Chloride Carbon Dioxide BUN Creatinine Glucose POC Glucose 136 H 209 H 182 H Lactic Acid Calcium Magnesium AST ALT Lactate Dehydrogenase Total Creatine Kinase C-Reactive Protein Albumin Urine WBC (Auto) Urine Total Protein Digoxin Salicylates Acetaminophen 01/07/20 Unknown WBC RBC Hgb Hct MCV MCH MCHC RDW Plt Count Lymph % (Auto) [place] % (Auto) Eos % (Auto) Lymph # [place] # Eos # Seg Neutrophils % Monocytes % (Manual) Monocytes # (Manual) D-Dimer ABG pH ABG pO2 ABG HCO3 28.9 H ABG O2 Saturation ABG Base Excess 4.0 H ABG Hemoglobin 11.0 L Oxyhemoglobin 94.2 L Sodium Potassium Chloride Carbon Dioxide BUN Creatinine Glucose POC Glucose Lactic Acid Calcium Magnesium AST ALT Lactate Dehydrogenase Total Creatine Kinase C-Reactive Protein Albumin Urine WBC (Auto) Urine Total Protein Digoxin Salicylates Acetaminophen Chest x-ray: image reviewed Allied health notes reviewed: RT
[2020-01-07] MEDS: POTASSIUM CHLORIDE 20 MEQ PACKET FEEDTUBE SCH (10:38)
[2020-01-07] MEDS: LINEZOLID 600 MG/300 ML BAG IV SCH ×2 (10:38→21:59)
[2020-01-07] MEDS: HEPARIN 5,000 UNIT/1 ML VIAL SUB-Q SCH ×2 (10:44→21:59)
--- NOTE | 2020-01-07 11:43 | Progress Note ---
Assessment and Plan - Patient Problems (1) Hypotension Current Visit: Yes Status: Acute Plan to address problem: Patient has bradycardia and hypotension requiring pressor therapy, in the setting of persistent dehydration. The sodium level remains high at 150. Will recommend aggressive volume replacement, correction of hypokalemia, and gradual wean off of dopamine. Subjective Date of service: 01/07/20 Principal diagnosis: Ac. Hypoxemic Resp Failure; Septic Shock; Magdiel. PNA; PUI COVID-19; CHF; JOE Interval history: Patient is sedated, on the vent. nuclear monitoring technician shows a sinus bradycardia 58, blood pressure 102 systolic. Patient remains on intravenous dopamine. Objective Vital Signs Temp Pulse Pulse Pulse Resp Resp BP 01/07/20 08:00 98.0 F 62 60 65 24 23 95/51 01/07/20 07:31 53 L 9 L 106/58 01/07/20 07:00 61 19 87/46 01/07/20 06:31 65 14 106/49 01/07/20 06:00 65 15 98/51 01/07/20 05:31 72 15 110/73 01/07/20 05:00 68 15 123/65 01/07/20 04:30 67 21 110/64 01/07/20 04:17 60 115/62 01/07/20 04:00 56 L 94 H 15 115/61 01/07/20 03:35 98.5 F 01/07/20 03:31 57 L 16 112/57 01/07/20 03:00 58 L 23 114/56 01/07/20 02:30 57 L 22 112/58 01/07/20 02:00 56 L 20 115/58 01/07/20 01:31 74 19 119/69 01/07/20 01:00 60 24 106/55 01/07/20 00:30 68 23 115/55 01/07/20 00:00 98.6 F 69 73 17 130/72 01/06/20 23:58 71 120/60 01/06/20 23:39 69 15 113/56 01/06/20 23:31 70 24 120/60 01/06/20 23:01 85 14 120/64 01/06/20 22:30 64 18 122/60 01/06/20 22:00 62 24 112/61 01/06/20 21:31 76 12 97/58 01/06/20 21:00 70 24 109/57 01/06/20 20:41 73 107/57 01/06/20 20:40 73 24 01/06/20 20:31 76 23 107/57 01/06/20 20:00 98.3 F 77 73 24 87/44 01/06/20 19:30 74 25 H 89/45 01/06/20 19:01 109 H 23 114/57 01/06/20 18:30 55 L 24 129/59 01/06/20 18:00 79 25 H 93/55 01/06/20 17:31 70 24 130/63 01/06/20 17:01 71 24 127/65 01/06/20 16:30 70 24 119/63 01/06/20 16:01 67 24 116/62 01/06/20 16:00 98.4 F 75 66 24 130/63 01/06/20 15:59 98.4 F 07 15:30 74 25 H 110/59 01/06/20 15:00 67 24 103/56 01/06/20 14:31 96 H 20 119/76 01/06/20 14:00 77 83 25 H 17 127/63 01/06/20 13:30 67 24 126/67 01/06/20 13:00 63 18 127/68 01/06/20 12:30 62 24 126/69 01/06/20 12:00 98.7 F 60 66 19 138/60 01/06/20 11:48 64 143/65 Pulse Ox 01/07/20 08:00 99 01/07/20 07:31 100 01/07/20 07:00 99 01/07/20 06:31 99 01/07/20 06:00 99 01/07/20 05:31 99 01/07/20 05:00 97 01/07/20 04:30 98 01/07/20 04:17 99 01/07/20 04:00 99 01/07/20 03:35 01/07/20 03:31 99 01/07/20 03:00 99 01/07/20 02:30 98 01/07/20 02:00 98 01/07/20 01:31 98 01/07/20 01:00 99 01/07/20 00:30 99 01/07/20 00:00 97 01/06/20 23:58 98 01/06/20 23:39 97 01/06/20 23:31 96 01/06/20 23:01 97 01/06/20 22:30 98 01/06/20 22:00 99 01/06/20 21:31 99 01/06/20 21:00 100 01/06/20 20:41 97 01/06/20 20:40 01/06/20 20:31 97 01/06/20 20:00 100 01/06/20 19:30 98 01/06/20 19:01 98 01/06/20 18:30 100 01/06/20 18:00 97 01/06/20 17:31 98 01/06/20 17:01 99 01/06/20 16:30 98 01/06/20 16:01 95 01/06/20 16:00 94 01/06/20 15:59 01/06/20 15:30 98 01/06/20 15:00 98 01/06/20 14:31 99 01/06/20 14:00 96 01/06/20 13:30 98 01/06/20 13:00 98 01/06/20 12:30 99 01/06/20 12:00 95 01/06/20 11:48 100 - Physical Examination General: Other (intubated on the vent) Neck: Positive: neck supple Cardiac: Positive: Regular Rhythm Lungs: Positive: Decreased Breath Sounds Neuro: Positive: Other (Intubated, on the vent) Abdomen: Positive: Soft Skin: Positive: Clear Extremities: Absent: edema - Allied health notes Allied health notes reviewed: RT
[2020-01-07] MEDS ORDERED: MAGNESIUM CITRATE 300 ML ORAL LIQD PO SCH (12:00)
[2020-01-07 12:12] LABS: BUN/Creatinine Ratio 18; Blood Urea Nitrogen 21 mg/dL (9-20); Calcium 9.8 mg/dL (8.4-10.2); Hemolysis Index 0
[2020-01-07] MEDS: DEXTROSE 5% IN WATER 1,000 ML IV SCH (13:24)
[2020-01-07] MEDS: HYDROCORTISONE SOD SUCC 100 MG/2 ML VIAL IV SCH ×2 (13:43→21:59)
--- NOTE | 2020-01-07 13:45 | Progress Note ---
Assessment and Plan - Patient Problems (1) Acute kidney injury Current Visit: Yes Status: Acute Plan to address problem: JAGDEEP 2/2 pre-renal injury in setting of sepsis and hemodynamic instability and now with vasopressor requirements. pt remains non-oliguric, renal function unchanged from yesterday . Avoid nephrotoxins, maintain MAP >65 mmHg. Will mon itor lytes/renal parameters closely and make further recommendations (2) Acute respiratory failure Current Visit: Yes Status: Acute Qualifiers: Plan to address problem: Management on vent per Pulmonary/ICU. (3) Hypernatremia Current Visit: Yes Status: Acute Plan to address problem: Na normalized with 1 dose of DDAVP along with IV D5W/free water flushes. repeat urine osm pending. Will monitor I/Os closely and persistent polyuria seen and worsening hypernatremia despite Iv d5w and free water flushes will maintain standing DDAVP dose. (4) Pneumonia Current Visit: No Status: Acute Qualifiers: Pneumonia type: due to unspecified organism Laterality: left Lung location: unspecified part of lung Qualified Code(s): J18.9 - Pneumonia, unspecified organism Plan to address problem: Management per primary/ICU team. (5) Diastolic CHF Current Visit: Yes Status: Acute Qualifiers: Heart failure chronicity: acute on chronic Qualified Code(s): I50.33 - Acute on chronic diastolic (congestive) heart failure Plan to address problem: management as per cardiology (6) Obesity hypoventilation syndrome Current Visit: Yes Status: Acute Subjective Date of service: 01/07/20 Principal diagnosis: Ac. Hypoxemic Resp Failure; Septic Shock; Magdiel. PNA; PUI COVID-19; CHF; JOE Interval history: Pt remains on vent, on vasopressor support with dopamin Objective - Vital Signs Vital signs: Vital Signs - 12hr 01/07/20 01/07/20 01/07/20 02:00 02:30 03:00 Temperature Pulse Rate 56 L 57 L 58 L Pulse Rate [ Bilateral] Pulse Rate [ From Monitor] Respiratory 20 22 23 Rate Respiratory Rate [Bilateral ] Blood Pressure 115/58 112/58 114/56 O2 Sat by Pulse 98 98 99 Oximetry 01/07/20 01/07/20 01/07/20 03:31 03:35 04:00 Temperature 98.5 F Pulse Rate 57 L 56 L Pulse Rate [ Bilateral] Pulse Rate [ 94 H From Monitor] Respiratory 16 15 Rate Respiratory Rate [Bilateral ] Blood Pressure 112/57 115/61 O2 Sat by Pulse 99 99 Oximetry 01/07/20 01/07/20 01/07/20 04:17 04:30 05:00 Temperature Pulse Rate 60 67 68 Pulse Rate [ Bilateral] Pulse Rate [ From Monitor] Respiratory 21 15 Rate Respiratory Rate [Bilateral ] Blood Pressure 115/62 110/64 123/65 O2 Sat by Pulse 99 98 97 Oximetry 01/07/20 01/07/20 01/07/20 05:31 06:00 06:31 Temperature Pulse Rate 72 65 65 Pulse Rate [ Bilateral] Pulse Rate [ From Monitor] Respiratory 15 15 14 Rate Respiratory Rate [Bilateral ] Blood Pressure 110/73 98/51 106/49 O2 Sat by Pulse 99 99 99 Oximetry 01/07/20 01/07/20 01/07/20 07:00 07:31 08:00 Temperature 98.0 F Pulse Rate 61 53 L 62 Pulse Rate [ 60 Bilateral] Pulse Rate [ 65 From Monitor] Respiratory 19 9 L 24 Rate Respiratory 23 Rate [Bilateral ] Blood Pressure 87/46 106/58 95/51 O2 Sat by Pulse 99 100 99 Oximetry 01/07/20 01/07/20 01/07/20 08:30 09:00 09:30 Temperature Pulse Rate 83 60 61 Pulse Rate [ Bilateral] Pulse Rate [ From Monitor] Respiratory 18 22 22 Rate Respiratory Rate [Bilateral ] Blood Pressure 96/47 98/52 93/46 O2 Sat by Pulse 98 98 99 Oximetry 01/07/20 01/07/20 01/07/20 10:00 10:30 11:00 Temperature Pulse Rate 56 L 68 58 L Pulse Rate [ Bilateral] Pulse Rate [ From Monitor] Respiratory 18 21 24 Rate Respiratory Rate [Bilateral ] Blood Pressure 102/60 118/67 103/54 O2 Sat by Pulse 99 98 99 Oximetry 01/07/20 01/07/20 01/07/20 11:30 11:54 12:00 Temperature 98.7 F Pulse Rate 59 L 69 70 Pulse Rate [ Bilateral] Pulse Rate [ 70 From Monitor] Respiratory 20 20 Rate Respiratory Rate [Bilateral ] Blood Pressure 130/63 123/54 O2 Sat by Pulse 97 96 96 Oximetry 01/07/20 12:01 Temperature Pulse Rate 70 Pulse Rate [ Bilateral] Pulse Rate [ From Monitor] Respiratory 20 Rate Respiratory Rate [Bilateral ] Blood Pressure 93/42 O2 Sat by Pulse 96 Oximetry - General Appearance General appearance: well-developed, appears stated age, chronically ill EENT: ATNC, mucous membranes moist Neck: no JVD Respiratory: Present: Decreased Breath Sounds Cardiology: regular, S1S2 Gastrointestinal: normoactive bowel sounds Integumentary: no rash Neurologic: confused, disoriented - Lab 01/06/20 04:58 01/07/20 11:40 Most recent lab results ABG pH 7.427 pH Units (7.350-7.450) 01/07/20 Unknown ABG pCO2 44.8 mm Hg 01/07/20 Unknown ABG pO2 82.2 mm Hg (80.0-90.0) 01/07/20 Unknown ABG HCO3 28.9 mmol/L (20.0-26.0) H 01/07/20 Unknown ABG O2 Saturation 96.6 % (95.0-99.0) 01/07/20 Unknown Calcium 9.8 mg/dL (8.4-10.2) 01/07/20 11:40 Phosphorus 3.70 mg/dL (2.5-4.5) 12/27/19 03:48 Magnesium 2.60 mg/dL (1.7-2.3) H 12/30/19 05:06 Urine Creatinine < 4.2 mg/dL (0.1-20.0) 12/25/19 16:45 Urine Sodium 10 mmol/L 12/25/19 16:45 Urine Total Protein < 4 mg/dL (5-11.8) L 12/25/19 16:45 Medications & Allergies - Medications Allergies/Adverse Reactions: Allergies No Known Allergies Allergy (Unverified 12/19/19 01:31) Home Medications: Home Medications Medication Instructions Recorded Confirmed Last Taken Type Ipratropium/Albuterol Sulfate 1 ampul IH TIDRT #90 ampul.neb 06/02/19 12/28/19 Unknown Rx [DUONEB *Not for PRN Use*] Aspirin [Aspirin BABY CHEW TAB] 81 mg PO DAILY 06/03/19 12/28/19 3 Days Ago History ~05/31/19 Desmopressin [Ddavp] 0.2 mg PO BID 06/03/19 12/28/19 3 Days Ago History ~05/31/19 Digoxin [Lanoxin] 0.125 mg PO DAILY 06/03/19 12/28/19 3 Days Ago History ~05/31/19 Folic Acid 100 mg PO DAILY 06/03/19 12/28/19 3 Days Ago History ~05/31/19 Furosemide [Lasix TAB] 40 mg PO QDAY 06/03/19 12/28/19 3 Days Ago History ~05/31/19 Insulin Lispro [Humalog 100 4 units SQ AC 06/03/19 12/28/19 3 Days Ago History UNITS/ML Kwikpen] ~05/31/19 Levothyroxine [Synthroid] 88 mcg PO QAM 06/03/19 12/28/19 3 Days Ago History ~05/31/19 Metformin HCl [metFORMIN] 1,000 mg PO BID 06/03/19 12/28/19 3 Days Ago History ~05/31/19 Potassium Chloride [K-Dur] 20 meq PO QDAY 06/03/19 12/28/19 3 Days Ago History ~05/31/19 carvediloL [Coreg] 6.25 mg PO BID 06/03/19 12/28/19 3 Days Ago History ~05/31/19 Famotidine [Pepcid] 20 mg PO QDAY #30 tablet 06/06/19 12/28/19 Unknown Rx Insulin NPH/Regular [NovoLIN 70/30] 50 unit SUB-Q BIDDIAB #100 units 06/06/19 12/28/19 Unknown Rx Active Medications: Generic Name Dose Route Start Last Admin Trade Name Freq PRN Reason Stop Dose Admin Acetaminophen 650 mg 12/29/19 09:21 01/03/20 18:31 Tylenol PO 650 mg Q4H PRN Administration Non Cardiac Pain or Temp>100.5 Albuterol/Ipratropium 1 ampul 12/18/19 14:00 01/07/20 08:16 Duoneb *Not For Prn Use* IH 1 ampul TIDRT SHANEL Administration Lipase/Protease/Amylase 1 each 12/19/19 08:29 Erendira Cabrera 10,500 Unit FEEDTUBE PRN PRN For Clogged Feeding Tube Aspirin 81 mg 12/19/19 10:00 01/07/20 10:32 Baby Aspirin PO 81 mg DAILY SHANEL Administration Bisacodyl 10 mg 01/02/20 15:48 01/02/20 18:25 Dulcolax MA 10 mg QDAY PRN Administration Constipation Docusate Sodium 100 mg 01/01/20 22:00 01/07/20 10:32 Colace PO 100 mg BID SHANEL Administration Famotidine 20 mg 12/20/19 10:00 01/07/20 10:32 Pepcid PO 20 mg BID SHANEL Administration Fentanyl 50 mcg 12/27/19 16:57 Sublimaze IV Q10MIN PRN ANALGESIA Folic Acid 1 mg 12/19/19 10:00 01/07/20 10:32 Folvite PO 1 mg DAILY SHANEL Administration Heparin Sodium (Porcine) 5,000 unit 12/18/19 22:00 01/07/20 10:44 Heparin SUB-Q 5,000 unit Q12HR SHANEL Administration Hydrocortisone Sodium Succinate 100 mg 01/07/20 14:00 Solu-Cortef IV 01/12/20 13:59 Q8HR SHANEL Hydrophilic Ointment 1 applic 12/18/19 12:35 Vaseline Lip Therapy TP Q2HR PRN Dry Lips Fentanyl Citrate 2,000 mcg in 100 mls @ 5.85 mls/hr 12/27/19 17:00 01/07/20 11:41 Fentanyl Drip Premix IV 1 mcg/kg/hr TITR SHANEL 5.85 mls/hr Titration Protocol 1 MCG/KG/HR Norepinephrine 4 mg in 250 mls @ 7.5 mls/hr 12/28/19 15:00 12/31/19 18:12 Levophed Drip 4 Mg/Ns 250 Ml IV 0 mcg/min TITR SHANEL 0 mls/hr Titration Protocol 2 MCG/MIN Linezolid 600 mg in 300 mls @ 300 mls/hr 12/29/19 15:00 01/07/20 11:41 Zyvox 600mg/300ml IV 01/07/20 22:59 Infused Q12HR SHANEL Infusion Protocol Vasopressin 20 unit/ Sodium 101 mls @ 9.09 mls/hr 12/30/19 12:30 01/01/20 13:44 Chloride IV 0 units/min TITR SHANEL 0 mls/hr Titration Protocol 0.03 UNITS/MIN Dopamine HCl/Dextrose 800 mg in 250 mls @ 4.388 mls/hr 12/31/19 16:00 01/07/20 11:42 Intropin Drip 800 Mg/D5w 250 Ml IV 8 mcg/kg/min TITR SHANEL 17.55 mls/hr Titration Protocol 2 MCG/KG/MIN Dextrose 1,000 mls @ 75 mls/hr 01/07/20 13:00 01/07/20 13:24 D5w IV 75 mls/hr DIRECT SHANEL Administration Insulin Human Lispro 0 unit 12/31/19 14:00 01/07/20 10:40 Humalog SUB-Q 3 unit Q4HR SHANEL Administration Protocol Levothyroxine Sodium 88 mcg 12/19/19 06:00 01/07/20 05:05 Synthroid PO 88 mcg QAM@0600 SHANEL Administration Magnesium Citrate 300 ml 01/07/20 12:00 01/07/20 11:49 Citrate Of Magnesia PO 01/07/20 16:00 300 ml ONCE SHANEL Administration Multi-Ingred Cream/Lotion/Oil/Oint 1 applic 12/18/19 12:35 Artificial Tears Ophth Oint OU Q4HR PRN Dry Eye(s) Polyethylene Glycol 17 gm 01/01/20 22:00 01/06/20 21:04 Miralax 3350 PO 17 gm QHS SHANEL Administration Potassium Chloride 40 meq 12/29/19 10:00 01/07/20 10:38 Potassium Chloride FEEDTUBE 40 meq QDAY SHANEL Administration Simple Syrup 15 ml 12/19/19 08:29 01/06/20 04:58 Simple Syrup FEEDTUBE 15 ml PRN PRN Administration Hypoglycemia Simple Syrup 30 ml 12/19/19 08:29 Simple Syrup FEEDTUBE PRN PRN Hypoglycemia Sodium Bicarbonate 325 mg 12/19/19 08:29 Sodium Bicarbonate FEEDTUBE PRN PRN For Clogged Feeding Tube Sodium Chloride 10 ml 12/18/19 22:00 01/07/20 10:13 Sodium Chloride Flush Syringe 10 Ml IV 10 ml BID SHANEL Administration Sodium Chloride 10 ml 12/18/19 13:31 Sodium Chloride Flush Syringe 10 Ml IV PRN PRN LINE FLUSH
--- NOTE | 2020-01-07 17:55 | Progress Note ---
Assessment and Plan Assessment and plan: 59-year-old male past medical history diastolic CHF, OHS, HTN, DM 2, hypothyroidism admitted with confusion after being found by a neighbor. On arrival patient was found to be lethargic, and in respiratory distress and hypoxic. Patient was intubated in the ER because of hypoxic respiratory failure. Also noted to be hypotensive, placed on pressor admitted to ICU. Patient is negative for COVID-19, being treated for bilateral pneumonia. JAGDEEP improved with IV fluid, ID and critical care following. Chest x-ray: Left lower lobe airspace disease CT chest: 1. Patchy bilateral nodular and consolidative airspace opacities which are nonspecific but likely related to the reported history of Covid. 2. Multiple enlarged partially visualized left supraclavicular and lower cervical chain lymph nodes. While these are nonspecific and may be reactive, a neoplastic process is possible, recommend short interval follow-up after patient recovers from the acute episode. /HypERnatremia / Acute hypoxic respiratory failure Likely from bilateral pneumonia and diastolic heart failure Patient intubated, placed on ventilatory support. critical care team consulted in ED. Patient is extubated, continue nebulizer breathing treatment and as needed biPAP We will also do a swallow eval / Sepsis with shock cont IV antibiotic therapy, IV fluid resuscitation therapy, monitor urine output every shift, maintain mean arterial blood pressure greater than or equal to 65, s/p IV pressor support. / Suspected 2019-nCoV infection -ruled out with 2 negative test / Diastolic CHF Preserved EF based on prior echocardiogram Monitor weight strict I's/O, daily weight, monitor urine output every shift, submental oxygen, blood pressure control. /JAGDEEP, due to vasomotor nephropathy, present on admission -Creatinine improving, -Likely due to severe sepsis and hypotension /hypernatremia, -due to dehydration and sepsis -change fluid to D5W - monitor BMP /Hypokalemia, replete / Diabetes type II Initiate tube feeding diet Sliding scale insulin, Accu-Chek, hypoglycemia protocol. / Hypothyroidism Synthroid therapy, supportive care. / Bilateral pneumonia Pneumonia protocol: IV antibiotic therapy with rocephin for total 7 days, pulse oximetry, /Cervical lymphadenopathy -Reactive versus infectious process versus malignancy -Need repeat scanning and further staging when medically more stable -Pulmonology and ID following /Ileus: Hold tube feeds / HTN (hypertension) -hold BP meds as patient is hypotensive Monitor blood pressure every shift, continue medical management. /History of obstructive sleep apnea -Patient currently on mechanical ventilation /Acute metabolic encephalopathy Secondary to hyponatremia. /Urinary retention, suspected in the ER -Patient having good urine output now, will hold any CT scan -Continue IV fluid / DVT prophylaxis SCD to bilateral lower extremities while in bed, prophylactic heparin 12/19/19: Negative for COVID-19, continue pressor and wean off as tolerated, continue IV antibiotic and follow cultures. 12/19: Weaned off from pressor, sodium 156>157>153 today, creatinine 1.4>1.2>1.0. Continue IV fluid. Wean off from vent as tolerated. Follow ID recommendation 12/20: Extubated today, continue to monitor in the ICU overnight if clinically stable with transfer out to [facility]/telemetry tomorrow a.m.. Sodium 149 today, continue IV fluid and monitor BMP. Swallow eval, PT OT eval. 2nd text for covid is negative 12/21: transfer to [facility], start on gentle hydration. mechanical soft diet 12/22: placed back on bipap, Na 163 - start on D5W, monitor bmp 12/23: spoke to sister, updated [phone], also discussed Pulmonary, will likely need LTAC. Obtain Nephrology due to persistent Hypernatremia. Will start on free water and continue to monitor. Remains of restriants for safety due to intermittent confusion. 12/24: Still with intermittent encephalopathy. Requiring restraints. Hypernatremia still persist continue hypotonic solution. Nephrology consulted. Free water started this morning will increase dose. Replace potassium as hypokalemia still persist 12/26/19: Clinically improving, BIPAP now PRN AND HS, Na improving, continue renal follow up. I have called [facility] in case they would like to transfer the patient tested previously requested. 12/26: Hypernatermia still persist, had pulled out NGT yesterday, Continue free water, Continue Bipap, [facility]der[facility]ott states he is not yet stable for transfer. Although from our critical care team this patient has been cleared for to be able to transfer. 12/27: Patient reintubated due to hypoxia. Continue current management as outlined by document reviewer. Sodium is improving. Continue current management monitor ABG and intermittent chest x-ray. [facility] group updated. Patient sister also updated. 12/28: Sepsis persist. Antibiotics adjusted.-start linezolid 600 mg IV q 12 hour. Will adjust insulin for better management of blood glucose. 12/29: Shock still persist Levophed adjusted upward. [place] advised patient not safe for travel at this time. Continue ventilatory support continue full support antibiotics adjusted by ID. Follow cultures 12/30: Still on the vent and pressors , Isolation secondary MRSA In sputum. 12/31: Continue current management, will need intermittent chest xray, adjust insulin For better blood glucose control. Check labs in am 01/01: KUB reviewed shows distended bowel with no no specific obstruction noted. We will hold tube feeds at this time place NG tube to low intermittent suction. Repeat chest x-ray in a.m. Hyponatremia is better kidney function appears to be improving continue to monitor. 01/02: Continue feeding tube to low intermittent suction over 500 residual came out in the last 16+ hours. Repeat blood culture per ID. Continue antibiotics. We will obtain the CT abdomen and pelvis without contrast as renal function is mildly increased today. Prognosis is guarded repeat imaging concerning for colon distention. Will defer to critical care if the fecal management system should be placed. 01/03: CT A/P and chest. IMPRESSION: 1. Predominantly dependent bilateral consolidative and groundglass changes throughout both lungs have worsened since the prior. There is a new small left pleural effusion as well. These findings could be seen in the setting of pulmonary edema with associated superimposed infectious process. There is no cardiomegaly. 2. Left cervical/supraclavicular adenopathy appears slightly increased. This is nonspecific. However, there are shoddy nodes throughout the retroperitoneum and within the pelvis, and the spleen is mildly enlarged. Taken together, these findings are concerning for lymphoproliferative process such as lymphoma. - Ultrasound guided Biopsy, also send peripheral smear. US guided biopsy ordered - add a second pressors 01/04: Awaiting biopsy, continue supportive care, Sodium stable and improving. Patient undergoing bronchoscopy today. 01/05: Continue supportive care, monitor sodium level, wean pressors as tolerated, Radiology unable to perform biopsy of Lymphnode while patient is on the vent per Radiology team. Baldemar updated of clinical status 01/06: Remains on pressors. Continues with nonoliguric kidney injury. We will give a bolus of fluid as patient is still dry. Hypoglycemia is improving will decrease to D5 from D10 at the same rate. Continue to monitor await cultures and cytology from bronchoscopy. Likely will need trach and PEG.. The high probability of a clinically significant, sudden or life threatening deterioration of the [renal, pulmonary] system(s) required my full and direct attention, intervention and personal management. The aggregate critical care time was [35] minutes. This time is in addition to time spent performing rep orted procedures but includes the following: [x] Data Review and interpretation [x] Patient assessment and monitoring of vital signs [x] Documentation [x] Medication orders and management History Interval history: Patient seen and examined, still on full ventilatory support, no clinical change at this time. Remains on pressors, was hypoglycemic yesterday but not improving. Tube feeds still held due to distended abdomen. Hospitalist Physical - Physical exam Narrative exam: GENERAL: Still on full ventilatory support. well-developed obese more awake today.. ETT HEENT: Normocephalic. Atraumatic. No conjunctival congestion or icterus. Patient has moist mucous membranes. ETT NECK: Supple. Trachea midline. CHEST/LUNGS: Coarse breath sound auscultated bilaterally, HEART/CARDIOVASCULAR: Regular in rate and rhythm. S1 and S2 positive. ABDOMEN: Abdomen is soft, distended nontender. Patient has normal bowel sounds. SKIN: There is no rash. Warm and dry. NEURO: Follows some command, AMS, no focal deficits MUSCULOSKELETAL: No joint effusion or tenderness. EXTRIMITY: No edema, no cyanosis or clubbing. PSYCH: Sedated - Constitutional Vitals: Temp Pulse Resp BP Pulse Ox 98.3 F 71 22 90/57 91 01/07/20 16:00 01/07/20 16:00 01/07/20 15:01 01/07/20 16:00 01/07/20 16:00 General appearance: Present: severe distress HEART Score - HEART Score Troponin: Troponin T 0.011 ng/mL (0.00-0.029) 12/18/19 14:45 Results - Labs CBC & Chem 7: 01/06/20 04:58 01/07/20 11:40 Labs: Laboratory Last Values WBC 8.3 K/mm3 (4.5-11.0) 01/06/20 04:58 RBC 3.67 M/mm3 (3.65-5.03) 01/06/20 04:58 Hgb 8.8 gm/dl (11.8-15.2) L 01/06/20 04:58 Hct 28.7 % (35.5-45.6) L 01/06/20 04:58 MCV 78 fl (84-94) L 01/06/20 04:58 MCH 24 pg (28-32) L 01/06/20 04:58 MCHC 31 % (32-34) L 01/06/20 04:58 RDW 18.7 % (13.2-15.2) H 01/06/20 04:58 Plt Count 522 K/mm3 (140-440) H 01/06/20 04:58 Lymph % (Auto) 19.9 % (13.4-35.0) 01/02/20 05:00 [place] % (Auto) 9.4 % (0.0-7.3) H 01/02/20 05:00 Eos % (Auto) 11.2 % (0.0-4.3) H 01/02/20 05:00 Baso % (Auto) 0.8 % (0.0-1.8) 01/02/20 05:00 Lymph # 1.4 K/mm3 (1.2-5.4) 01/02/20 05:00 [place] # 0.7 K/mm3 (0.0-0.8) 01/02/20 05:00 Eos # 0.8 K/mm3 (0.0-0.4) H 01/02/20 05:00 Baso # 0.1 K/mm3 (0.0-0.1) 01/02/20 05:00 Add Manual Diff Complete 12/24/19 04:53 Total Counted 100 12/24/19 04:53 Seg Neutrophils % 58.7 % (40.0-70.0) 01/02/20 05:00 Seg Neuts % (Manual) 60.0 % (40.0-70.0) 12/24/19 04:53 Band Neutrophils % 0 % 12/24/19 04:53 Lymphocytes % (Manual) 20.0 % (13.4-35.0) 12/24/19 04:53 Reactive Lymphs % (Man) 0 % 12/24/19 04:53 Monocytes % (Manual) 15.0 % (0.0-7.3) H 12/24/19 04:53 Eosinophils % (Manual) 4.0 % (0.0-4.3) 12/24/19 04:53 Basophils % (Manual) 0 % (0.0-1.8) 12/24/19 04:53 Metamyelocytes % 1.0 % 12/24/19 04:53 Myelocytes % 0 % 12/24/19 04:53 Promyelocytes % 0 % 12/24/19 04:53 Blast Cells % 0 % 12/24/19 04:53 Nucleated RBC % Not Reportable 12/24/19 04:53 Seg Neutrophils # 4.0 K/mm3 (1.8-7.7) 01/02/20 05:00 Seg Neutrophils # Man 3.5 K/mm3 (1.8-7.7) 12/24/19 04:53 Band Neutrophils # 0.0 K/mm3 12/24/19 04:53 Lymphocytes # (Manual) 1.2 K/mm3 (1.2-5.4) 12/24/19 04:53 Abs React Lymphs (Man) 0.0 K/mm3 12/24/19 04:53 Monocytes # (Manual) 0.9 K/mm3 (0.0-0.8) H 12/24/19 04:53 Eosinophils # (Manual) 0.2 K/mm3 (0.0-0.4) 12/24/19 04:53 Basophils # (Manual) 0.0 K/mm3 (0.0-0.1) 12/24/19 04:53 Metamyelocytes # 0.1 K/mm3 12/24/19 04:53 Myelocytes # 0.0 K/mm3 12/24/19 04:53 Promyelocytes # 0.0 K/mm3 12/24/19 04:53 Blast Cells # 0.0 K/mm3 12/24/19 04:53 WBC Morphology Not Reportable 12/24/19 04:53 Hypersegmented Neuts Not Reportable 12/24/19 04:53 Hyposegmented Neuts Not Reportable 12/24/19 04:53 Hypogranular Neuts Not Reportable 12/24/19 04:53 Smudge Cells Not Reportable 12/24/19 04:53 Toxic Granulation Not Reportable 12/24/19 04:53 Toxic Vacuolation Not Reportable 12/24/19 04:53 Dohle Bodies Not Reportable 12/24/19 04:53 Pelger-Huet Anomaly Not Reportable 12/24/19 04:53 Mervin Rods Not Reportable 12/24/19 04:53 Platelet Estimate Consistent w auto 12/24/19 04:53 Clumped Platelets Not Reportable 12/24/19 04:53 Plt Clumps, EDTA Not Reportable 12/24/19 04:53 Large Platelets Not Reportable 12/24/19 04:53 Giant Platelets Not Reportable 12/24/19 04:53 Platelet Satelliting Not Reportable 12/24/19 04:53 Plt Morphology Comment Not Reportable 12/24/19 04:53 RBC Morphology Not Reportable 12/24/19 04:53 Dimorphic RBCs Not Reportable 12/24/19 04:53 Polychromasia Rare 12/24/19 04:53 Hypochromasia 1+ 12/24/19 04:53 Poikilocytosis Not Reportable 12/24/19 04:53 Anisocytosis 1+ 12/24/19 04:53 Microcytosis Few 12/24/19 04:53 Macrocytosis Not Reportable 12/24/19 04:53 Spherocytes Not Reportable 12/24/19 04:53 Pappenheimer Bodies Not Reportable 12/24/19 04:53 Sickle Cells Not Reportable 12/24/19 04:53 Target Cells Not Reportable 12/24/19 04:53 Tear Drop Cells Not Reportable 12/24/19 04:53 Ovalocytes Few 12/24/19 04:53 Helmet Cells Not Reportable 12/24/19 04:53 [place] Bodies Not Reportable 12/24/19 04:53 [place] Rings Not Reportable 12/24/19 04:53 Ileana Cells Not Reportable 12/24/19 04:53 Bite Cells Not Reportable 12/24/19 04:53 Crenated Cell Not Reportable 12/24/19 04:53 Elliptocytes Not Reportable 12/24/19 04:53 Acanthocytes (Spur) Not Reportable 12/24/19 04:53 Rouleaux Not Reportable 12/24/19 04:53 Hemoglobin C Crystals Not Reportable 12/24/19 04:53 Schistocytes Not Reportable 12/24/19 04:53 Malaria parasites Not Reportable 12/24/19 04:53 Gianni Bodies Not Reportable 12/24/19 04:53 Hem Pathologist Commnt No 12/24/19 04:53 PT 14.0 Sec. (12.2-14.9) 12/18/19 14:45 INR 1.10 (0.87-1.13) 12/18/19 14:45 APTT 29.4 Sec. (24.2-36.6) 12/18/19 14:45 D-Dimer 534.45 ng/mlDDU (0-234) H 12/18/19 14:45 ABG pH 7.427 pH Units (7.350-7.450) 01/07/20 Unknown ABG pCO2 44.8 mm Hg 01/07/20 Unknown ABG pO2 82.2 mm Hg (80.0-90.0) 01/07/20 Unknown ABG HCO3 28.9 mmol/L (20.0-26.0) H 01/07/20 Unknown ABG O2 Saturation 96.6 % (95.0-99.0) 01/07/20 Unknown ABG O2 Content 14.7 (0.0-44) 01/07/20 Unknown ABG Base Excess 4.0 mmol/L (-2.0-3.0) H 01/07/20 Unknown ABG Hemoglobin 11.0 gm/dl (14.0-18.0) L 01/07/20 Unknown ABG Carboxyhemoglobin 1.8 % (0.0-5.0) 01/07/20 Unknown ABG Methemoglobin 0.8 % (0.0-1.5) 01/07/20 Unknown Oxyhemoglobin 94.2 % (95.0-99.0) L 01/07/20 Unknown FiO2 45 % 01/07/20 Unknown Sodium 139 mmol/L (137-145) D 01/07/20 11:40 Potassium 4.0 mmol/L (3.6-5.0) 01/07/20 11:40 Chloride 98.8 mmol/L (98-107) 01/07/20 11:40 Carbon Dioxide 29 mmol/L (22-30) 01/07/20 11:40 Anion Gap 15 mmol/L 01/07/20 11:40 BUN 21 mg/dL (9-20) H 01/07/20 11:40 Creatinine 1.2 mg/dL (0.8-1.5) 01/07/20 11:40 Estimated GFR > 60 ml/min 01/07/20 11:40 BUN/Creatinine Ratio 18 % 01/07/20 11:40 Glucose 190 mg/dL (75-100) H 01/07/20 11:40 POC Glucose 184 (70-105) H 01/07/20 13:49 Lactic Acid 1.70 mmol/L (0.7-2.0) 12/30/19 05:06 Calcium 9.8 mg/dL (8.4-10.2) 01/07/20 11:40 Phosphorus 3.70 mg/dL (2.5-4.5) 12/27/19 03:48 Magnesium 2.60 mg/dL (1.7-2.3) H 12/30/19 05:06 Ferritin 83.4 ng/mL (13.0-400.0) 12/18/19 14:45 Total Bilirubin 0.30 mg/dL (0.1-1.2) 12/19/19 04:13 AST 85 units/L (5-40) H 12/19/19 04:13 ALT 61 units/L (7-56) H 12/19/19 04:13 Alkaline Phosphatase 80 units/L (35-129) 12/19/19 04:13 Ammonia 39.0 umol/L (25-60) 12/18/19 14:45 Lactate Dehydrogenase 235 units/L (91-180) H 12/18/19 14:45 Lactate Dehydrogenase 236 units/L (91-180) H 12/18/19 14:45 Total Creatine Kinase 40 units/L (55-170) L 12/18/19 14:45 Troponin T 0.011 ng/mL (0.00-0.029) 12/18/19 14:45 C-Reactive Protein 8.40 mg/dL (0.00-1.30) H 12/18/19 14:45 C-Reactive Protein 8.50 mg/dL (0.00-1.30) H 12/18/19 14:45 Total Protein 6.8 g/dL (6.3-8.2) 12/19/19 04:13 Albumin 3.0 g/dL (3.9-5) L 12/19/19 04:13 Albumin/Globulin Ratio 0.8 % 12/19/19 04:13 Procalcitonin 0.22 ng/mL (<0.15) 12/18/19 14:45 TSH 2.300 mlU/mL (0.270-4.200) 12/18/19 14:45 Urine Color Yellow (Yellow) 12/19/19 16:50 Urine Turbidity Clear (Clear) 12/19/19 16:50 Urine pH 5.0 (5.0-7.0) 12/19/19 16:50 Ur Specific [place] 1.010 (1.003-1.030) 12/19/19 16:50 Urine Protein <15 mg/dl mg/dL (Negative) 12/19/19 16:50 Urine Glucose (UA) 150 mg/dL (Negative) 12/19/19 16:50 Urine Ketones Neg mg/dL (Negative) 12/19/19 16:50 Urine Blood Neg (Negative) 12/19/19 16:50 Urine Nitrite Neg (Negative) 12/19/19 16:50 Urine Bilirubin Neg (Negative) 12/19/19 16:50 Urine Urobilinogen < 2.0 mg/dL (<2.0) 12/19/19 16:50 Ur Leukocyte Esterase Tr (Negative) 12/19/19 16:50 Urine WBC (Auto) 7.0 /HPF (0.0-6.0) H 12/19/19 16:50 Urine RBC (Auto) 4.0 /HPF (0.0-6.0) 12/19/19 16:50 U Epithel Cells (Auto) 1.0 /HPF (0-13.0) 12/19/19 16:50 Urine Bacteria (Auto) 1+ /HPF (Negative) 12/19/19 16:50 Urine Mucus Few /HPF 12/19/19 16:50 Urine Osmolality 140 Mosm/kg 12/25/19 16:45 Urine Creatinine < 4.2 mg/dL (0.1-20.0) 12/25/19 16:45 Urine Sodium 10 mmol/L 12/25/19 16:45 Urine Total Protein < 4 mg/dL (5-11.8) L 12/25/19 16:45 Digoxin 0.3 ng/mL (0.9-2.0) L 12/18/19 14:45 Salicylates < 0.3 mg/dL (2.8-20.0) L 12/18/19 14:45 Acetaminophen < 5.0 ug/mL (10.0-30.0) L 12/18/19 14:45 Plasma/Serum Alcohol < 0.01 % (0-0.07) 12/18/19 14:45 Coronavirus (PCR) Negative (Negative) 12/21/19 14:45 AFB Identification 01/05/20 09:05 Fungal Id Prelim 01/05/20 09:05 Blood Type A POSITIVE 12/18/19 14:45 Antibody Screen Negative 12/18/19 14:45 Microbiology: Microbiology 01/05/20 09:05 Bronchial Washings - Left Lower Lobe Respiratory Culture - Final - Diagnostic Impressions Diagnostic Impressions: Echocardiogram 12/28/19 14:07 Transthoracic Echocardiogram Indication: SOB BP: 95/51 HR: 99 Conclusions *The left ventricular chamber size is mildly dilated. *There is no left ventricular hypertrophy. *Global left ventricular systolic function is mildly decreased. *The estimated ejection fraction is 45-50%. *Abnormal left ventricular diastolic filling is observed, consistent with impaired relaxation. *The right ventricular global systolic function is mildly reduced. *The right ventricular systolic pressure is calculated at 53 mmHg. Findings Left Ventricle: The left ventricular chamber size is mildly dilated. There is no left ventricular hypertrophy. Global left ventricular systolic function is mildly decreased. The estimated ejection fraction is 45-50%. Abnormal left ventricular diastolic filling is observed, consistent with impaired relaxation. Left Atrium: The left atrial chamber size is normal. Right Ventricle: The right ventricular cavity size is normal. The right ventricular global systolic function is mildly reduced. Right Atrium: The right atrial cavity size is normal. Aortic Valve: The aortic valve leaflets are mildly thickened. There is no evidence of aortic regurgitation. Mitral Valve: The mitral valve leaflets are mildly thickened. There is no evidence of mitral regurgitation. Tricuspid Valve: The tricuspid valve leaflets are normal. There is mild tricuspid regurgitation. The right ventricular systolic pressure is calculated at 53 mmHg. Pulmonic Valve: The pulmonic valve appears normal. There is trace pulmonic regurgitation. Pericardium: There is no pericardial effusion. Aorta: The aorta appears normal. Venous: The inferior vena cava is dilated. Measurements Chambers 2D Name Value Normal Range IVSd (2D) 1.08 cm (0.6 - 1.1) LVPWd (2D) 1 cm (0.6 - 1.1) LVIDd (2D) 4.67 cm (3.7 - 5.6) LVIDs (2D) 3.89 cm (2 - 3.8) LV FS (2D) 16.76 % - EF Teichholz (2D) 35.14 % - Ao root diameter (2D) 2.86 cm (2 - 3.7) Volumes/Mass Name Value Normal Range LA ESV SP 4CH (A/L) 31.8 ml - LA ESV SP 2CH (A/L) 27.37 ml - LA ESV BP (A/L) 33.43 ml - LA ESV BP (A/L) index 14.11 ml/m2 - LA ESV SP 4CH (MOD) 26.83 ml - LA ESV SP 2CH (MOD) 29.59 ml - LA ESV BP (MOD) 30.47 ml - LA ESV BP (MOD) index 12.86 ml/m2 - Diastolic/Systolic Function Name Value Normal Range MV E-wave Vmax 0.39 m/sec - MV deceleration time 115.69 msec - MV A-wave Vmax 0.63 m/sec - MV E:A ratio 0.62 ratio - Aortic Valve Name Value Normal Range AV Vmax 1.14 m/sec - AV VTI 20.1 cm - AV peak gradient 5.17 mmHg - AV mean gradient 3.89 mmHg - LVOT diameter 2.02 cm - LVOT Vmax 0.99 m/sec - LVOT VTI 16.45 cm - LVOT peak gradient 3.95 mmHg - LVOT mean gradient 2.45 mmHg - SV LVOT 52.45 ml - RALPH (continuity Vmax) 2.78 cm2 - RALPH (continuity VTI) 2.61 cm2 - Tricuspid Valve Name Value Normal Range TR Vmax 3.36 m/sec - TR peak gradient 45 mmHg - RAP 8 mmHg - RVSP 53 mmHg - IVC diameter 2.33 cm (1.2 - 2.3) Pulmonic Valve/Qp:Qs Name Value Normal Range PV Vmax 0.89 m/sec - PV peak gradient 3.16 mmHg - RI end-diastolic Vmax 1.42 m/sec - PV acceleration time 79.92 msec - Skyes/IV: Voiding Method Condom Catheter IV Catheter Type [Right Upper PICC Line arm] IV Catheter Type [Right Leg] Intra-osseous IV Catheter Type [Right Wrist] Peripheral IV IV Catheter Type [Right Hand] INT / Saline Lock IV Catheter Type [Left Hand] INT / Saline Lock IV Catheter Type [Left Forearm INT / Saline Lock ] IV Catheter Type [Left Triple Lumen Cath Internal Jugular] Active Medications - Current Medications Current Medications: Generic Name Dose Route Start Last Admin Trade Name Freq PRN Reason Stop Dose Admin Acetaminophen 650 mg 12/29/19 09:21 01/03/20 18:31 Tylenol PO 650 mg Q4H PRN Administration Non Cardiac Pain or Temp>100.5 Albuterol/Ipratropium 1 ampul 12/18/19 14:00 01/07/20 14:44 Duoneb *Not For Prn Use* IH 1 ampul TIDRT SHANEL Administration Lipase/Protease/Amylase 1 each 12/19/19 08:29 Pancrecorry Cabrera 10,500 Unit FEEDTUBE PRN PRN For Clogged Feeding Tube Aspirin 81 mg 12/19/19 10:00 01/07/20 10:32 Baby Aspirin PO 81 mg DAILY SHANEL Administration Bisacodyl 10 mg 01/02/20 15:48 01/02/20 18:25 Dulcolax RI 10 mg QDAY PRN Administration Constipation Docusate Sodium 100 mg 01/01/20 22:00 01/07/20 10:32 Colace PO 100 mg BID SHANEL Administration Famotidine 20 mg 12/20/19 10:00 01/07/20 10:32 Pepcid PO 20 mg BID SHANEL Administration Fentanyl 50 mcg 12/27/19 16:57 Sublimaze IV Q10MIN PRN ANALGESIA Folic Acid 1 mg 12/19/19 10:00 01/07/20 10:32 Folvite PO 1 mg DAILY SHANEL Administration Heparin Sodium (Porcine) 5,000 unit 12/18/19 22:00 01/07/20 10:44 Heparin SUB-Q 5,000 unit Q12HR SHANEL Administration Hydrocortisone Sodium Succinate 100 mg 01/07/20 14:00 01/07/20 13:43 Solu-Cortef IV 01/12/20 13:59 100 mg Q8HR SHANEL Administration Hydrophilic Ointment 1 applic 12/18/19 12:35 Vaseline Lip Therapy TP Q2HR PRN Dry Lips Fentanyl Citrate 2,000 mcg in 100 mls @ 5.85 mls/hr 12/27/19 17:00 01/07/20 13:55 Fentanyl Drip Premix IV 1 mcg/kg/hr TITR SHANEL 5.85 mls/hr Administration Protocol 1 MCG/KG/HR Norepinephrine 4 mg in 250 mls @ 7.5 mls/hr 12/28/19 15:00 12/31/19 18:12 Levophed Drip 4 Mg/Ns 250 Ml IV 0 mcg/min TITR SHANEL 0 mls/hr Titration Protocol 2 MCG/MIN Linezolid 600 mg in 300 mls @ 300 mls/hr 12/29/19 15:00 01/07/20 11:41 Zyvox 600mg/300ml IV 01/07/20 22:59 Infused Q12HR SHANEL Infusion Protocol Vasopressin 20 unit/ Sodium 101 mls @ 9.09 mls/hr 12/30/19 12:30 01/01/20 13:44 Chloride IV 0 units/min TITR SHANEL 0 mls/hr Titration Protocol 0.03 UNITS/MIN Dopamine HCl/Dextrose 800 mg in 250 mls @ 4.388 mls/hr 12/31/19 16:00 0709/23 13:53 Intropin Drip 800 Mg/D5w 250 Ml IV 6 mcg/kg/min TITR SHANEL 13.163 mls/hr Titration Protocol 2 MCG/KG/MIN Dextrose 1,000 mls @ 75 mls/hr 01/07/20 13:00 01/07/20 13:24 D5w IV 75 mls/hr DIRECT SHANEL Administration Insulin Human Lispro 0 unit 12/31/19 14:00 01/07/20 13:44 Humalog SUB-Q 3 unit Q4HR SHANEL Administration Protocol Levothyroxine Sodium 88 mcg 12/19/19 06:00 01/07/20 05:05 Synthroid PO 88 mcg QAM@0600 SHANEL Administration Multi-Ingred Cream/Lotion/Oil/Oint 1 applic 12/18/19 12:35 Artificial Tears Ophth Oint OU Q4HR PRN Dry Eye(s) Polyethylene Glycol 17 gm 01/01/20 22:00 01/06/20 21:04 Miralax 3350 PO 17 gm QHS SHANEL Administration Potassium Chloride 40 meq 12/29/19 10:00 01/07/20 10:38 Potassium Chloride FEEDTUBE 40 meq QDAY SHANEL Administration Simple Syrup 15 ml 12/19/19 08:29 01/06/20 04:58 Simple Syrup FEEDTUBE 15 ml PRN PRN Administration Hypoglycemia Simple Syrup 30 ml 12/19/19 08:29 Simple Syrup FEEDTUBE PRN PRN Hypoglycemia Sodium Bicarbonate 325 mg 12/19/19 08:29 Sodium Bicarbonate FEEDTUBE PRN PRN For Clogged Feeding Tube Sodium Chloride 10 ml 12/18/19 22:00 01/07/20 10:13 Sodium Chloride Flush Syringe 10 Ml IV 10 ml BID SHANEL Administration Sodium Chloride 10 ml 12/18/19 13:31 Sodium Chloride Flush Syringe 10 Ml IV PRN PRN LINE FLUSH Nutrition/Malnutrition Assess - Dietary Evaluation Nutrition/Malnutrition Findings: Nutrition Notes Start: 12/19/19 08:16 Freq: Status: Active Protocol: Document 01/06/20 15:15 LM (Rec: 01/06/20 15:20 LM [email or web address]) Nutrition Notes Initial or Follow up Reassessment Current Diagnosis Diabetes,Sepsis,Hypertension, Heart Failure,Respiratory Failure Other Pertinent Diagnosis Suspected COVID-19, pneu Current Diet Vital AF 1.2 at 65ml/hr Labs/Tests Na 150 BUN 25 BG 55 Pertinent Medications Reviewed Height 6 ft 2 in Weight 117 kg [place] Body Weight (kg) 86.36 BMI 33.1 Weight Status Obese Subjective/Other Information TF is at 30ml/hr. RN stated TF will stay at 30ml/hr for now. Percent of energy/protein needs met: 43%/31% Burn Absent Trauma Absent Current % PO Negligible Minimum of two criteria No physical signs of malnutrition #1 Nutrition Diagnosis Inadequate oral intake Diagnosis Progress(for reassessment Continues documentation) Is patient on ventilator? Yes Is Patient Ambulatory and/or Out of Bed No REE-([facility]-confined to bed) 2469.960 Kcal/Kg value to use for calculation 17 Approximate Energy Requirements Using 1989 kcal/Kg Calculation Used for Recommendations Kcal/kg Additional Notes Protein: 172g (>/=2g/kg using IBW 86kg) Fluid 1ml/kcal Nutrition Intervention Change Diet Order: TF Nutrition Support: Vital AF 1.2 at 65ml/hr Flush 300ml q4h for hypernatremia Flush 100ml q4h once resolved Kcal 1,872 Protein (gm) 117 Fluid (mL) 1,265 Goal #1 TF tolerance Goal #2 Meet at least 75% of energy and protein needs Anticipated Discharge Needs: unable to determine at this time Follow-Up By: 01/10/20 Additional Comments F/U for TF/tolerance, goal rate, Na
[2020-01-07] MEDS ORDERED: SODIUM CHLORIDE 0.9% 1000 ML 1,000 ML IV ONE (17:57)
[2020-01-07] MEDS: POLYETHYLENE GLYCOL 3350 17 GM POWDER PO SCH (21:59)
[2020-01-08] MEDS: fentaNYL DRIP Premix 2,000 MCG/100 ML BAG IV SCH ×2 (01:23→17:41)
[2020-01-08] MEDS: DEXTROSE 5% IN WATER 1,000 ML IV SCH (01:24)
[2020-01-08] MEDS: INSULIN LISPRO 100 UNIT/ML SUB-Q SCH ×6 (02:35→21:53)
[2020-01-08 05:56] LABS: ABG Base Excess 1.7 mmol/L (-2.0-3.0); ABG HCO3 26.5 mmol/L (20.0-26.0); ABG Methemoglobin 1.1 % (0.0-1.5); ABG Oxygen Saturation 93.2 % (95.0-99.0); ABG PCO2 42.3 mm Hg; ABG PH 7.414 pH Units (7.350-7.450); ABG PO2 67.8 mm Hg (80.0-90.0)
[2020-01-08] MEDS: HYDROCORTISONE SOD SUCC 100 MG/2 ML VIAL IV SCH ×3 (06:28→21:54)
[2020-01-08] MEDS: LEVOTHYROXINE 88 MCG TAB PO SCH (06:28)
[2020-01-08] MEDS: IPRATROPIUM/ALBUTEROL SULFATE 3 ML AMPUL.NEB IH SCH ×3 (07:58→20:20)
[2020-01-08 08:41] LABS: Hematocrit 24.3 % (35.5-45.6); Hemoglobin 7.6 gm/dl (11.8-15.2); Mean Corpuscular HGB Conc 31 % (32-34); Mean Corpuscular Volume 77 fl (84-94); Platelet Count 509 K/mm3 (140-440); Red Blood Count 3.14 M/mm3 (3.65-5.03); Red Cell Distribution Width 18.3 % (13.2-15.2)
--- NOTE | 2020-01-08 08:56 | Progress Note ---
Assessment and Plan Assessment and plan: 59-year-old male past medical history diastolic CHF, OHS, HTN, DM 2, hypothyroidism admitted with confusion after being found by a neighbor. On arrival patient was found to be lethargic, and in respiratory distress and hypoxic. Patient was intubated in the ER because of hypoxic respiratory failure. Also noted to be hypotensive, placed on pressor admitted to ICU. Patient is negative for COVID-19, being treated for bilateral pneumonia. JAGDEEP improved with IV fluid, ID and critical care following. Chest x-ray: Left lower lobe airspace disease CT chest: 1. Patchy bilateral nodular and consolidative airspace opacities which are nonspecific but likely related to the reported history of Covid. 2. Multiple enlarged partially visualized left supraclavicular and lower cervical chain lymph nodes. While these are nonspecific and may be reactive, a neoplastic process is possible, recommend short interval follow-up after patient recovers from the acute episode. /HypERnatremia / Acute hypoxic respiratory failure Likely from bilateral pneumonia and diastolic heart failure Patient intubated, placed on ventilatory support. critical care team consulted in ED. Patient is extubated, continue nebulizer breathing treatment and as needed biPAP We will also do a swallow eval / Sepsis with shock cont IV antibiotic therapy, IV fluid resuscitation therapy, monitor urine output every shift, maintain mean arterial blood pressure greater than or equal to 65, s/p IV pressor support. / Suspected 2019-nCoV infection -ruled out with 2 negative test / Diastolic CHF Preserved EF based on prior echocardiogram Monitor weight strict I's/O, daily weight, monitor urine output every shift, submental oxygen, blood pressure control. /JAGDEEP, due to vasomotor nephropathy, present on admission -Creatinine improving, -Likely due to severe sepsis and hypotension /hypernatremia, -due to dehydration and sepsis -change fluid to D5W - monitor BMP /Hypokalemia, replete / Diabetes type II Initiate tube feeding diet Sliding scale insulin, Accu-Chek, hypoglycemia protocol. / Hypothyroidism Synthroid therapy, supportive care. / Bilateral pneumonia Pneumonia protocol: IV antibiotic therapy with rocephin for total 7 days, pulse oximetry, /Cervical lymphadenopathy -Reactive versus infectious process versus malignancy -Need repeat scanning and further staging when medically more stable -Pulmonology and ID following /Ileus: Hold tube feeds / HTN (hypertension) -hold BP meds as patient is hypotensive Monitor blood pressure every shift, continue medical management. /History of obstructive sleep apnea -Patient currently on mechanical ventilation /Acute metabolic encephalopathy Secondary to hyponatremia. /Urinary retention, suspected in the ER -Patient having good urine output now, will hold any CT scan -Continue IV fluid / DVT prophylaxis SCD to bilateral lower extremities while in bed, prophylactic heparin 12/19/19: Negative for COVID-19, continue pressor and wean off as tolerated, continue IV antibiotic and follow cultures. 12/19: Weaned off from pressor, sodium 156>157>153 today, creatinine 1.4>1.2>1.0. Continue IV fluid. Wean off from vent as tolerated. Follow ID recommendation 12/20: Extubated today, continue to monitor in the ICU overnight if clinically stable with transfer out to [facility]/telemetry tomorrow a.m.. Sodium 149 today, continue IV fluid and monitor BMP. Swallow eval, PT OT eval. 2nd text for covid is negative 12/21: transfer to [facility], start on gentle hydration. mechanical soft diet 12/22: placed back on bipap, Na 163 - start on D5W, monitor bmp 12/23: spoke to sister, updated [id number], also discussed Pulmonary, will likely need LTAC. Obtain Nephrology due to persistent Hypernatremia. Will start on free water and continue to monitor. Remains of restriants for safety due to intermittent confusion. 12/24: Still with intermittent encephalopathy. Requiring restraints. Hypernatremia still persist continue hypotonic solution. Nephrology consulted. Free water started this morning will increase dose. Replace potassium as hypokalemia still persist 12/26/19: Clinically improving, BIPAP now PRN AND HS, Na improving, continue renal follow up. I have called [facility] in case they would like to transfer the patient tested previously requested. 12/26: Hypernatermia still persist, had pulled out NGT yesterday, Continue free water, Continue Bipap, [facility] states he is not yet stable for transfer. Although from our critical care team this patient has been cleared for to be able to transfer. 12/27: Patient reintubated due to hypoxia. Continue current management as outlined by filemaker developer. Sodium is improving. Continue current management monitor ABG and intermittent chest x-ray. [facility] group updated. Patient sister also updated. 12/28: Sepsis persist. Antibiotics adjusted.-start linezolid 600 mg IV q 12 hour. Will adjust insulin for better management of blood glucose. 12/29: Shock still persist Levophed adjusted upward. [place] advised patient not safe for travel at this time. Continue ventilatory support continue full support antibiotics adjusted by ID. Follow cultures 12/30: Still on the vent and pressors , Isolation secondary MRSA In sputum. 12/31: Continue current management, will need intermittent chest xray, adjust insulin For better blood glucose control. Check labs in am 01/01: KUB reviewed shows distended bowel with no no specific obstruction noted. We will hold tube feeds at this time place NG tube to low intermittent suction. Repeat chest x-ray in a.m. Hyponatremia is better kidney function appears to be improving continue to monitor. 01/02: Continue feeding tube to low intermittent suction over 500 residual came out in the last 16+ hours. Repeat blood culture per ID. Continue antibiotics. We will obtain the CT abdomen and pelvis without contrast as renal function is mildly increased today. Prognosis is guarded repeat imaging concerning for colon distention. Will defer to critical care if the fecal management system should be placed. 01/03: CT A/P and chest. IMPRESSION: 1. Predominantly dependent bilateral consolidative and groundglass changes throughout both lungs have worsened since the prior. There is a new small left pleural effusion as well. These findings could be seen in the setting of pulmonary edema with associated superimposed infectious process. There is no cardiomegaly. 2. Left cervical/supraclavicular adenopathy appears slightly increased. This is nonspecific. However, there are shoddy nodes throughout the retroperitoneum and within the pelvis, and the spleen is mildly enlarged. Taken together, these findings are concerning for lymphoproliferative process such as lymphoma. - Ultrasound guided Biopsy, also send peripheral smear. US guided biopsy ordered - add a second pressors 01/04: Awaiting biopsy, continue supportive care, Sodium stable and improving. Patient undergoing bronchoscopy today. 01/05: Continue supportive care, monitor sodium level, wean pressors as tolerated, Radiology unable to perform biopsy of Lymphnode while patient is on the vent per Radiology team. Baldemar updated of clinical status 01/06: Remains on pressors. Continues with nonoliguric kidney injury. We will give a bolus of fluid as patient is still dry. Hypoglycemia is improving will decrease to D5 from D10 at the same rate. Continue to monitor await cultures and cytology from bronchoscopy. Likely will need trach and PEG. 01/07: Discontinue D5. Patient did receive a bolus of fluid yesterday. Bowel movement noted. Monitor blood sugar close, continue to wean pressors, folllow result from bronchoscopy. start considering Trach and PEG The high probability of a clinically significant, sudden or life threatening deterioration of the [renal, pulmonary] system(s) required my full and direct attention, intervention and personal management. The aggregate critical care time was [35] minutes. This time is in addition to time spent performing reported procedures but includes the following: [x] Data Review and interpretation [x] Patient assessment and monitoring of vital signs [x] Documentation [x] Medication orders and management History Interval history: Patient seen and examined, still on full ventilatory support, awake but not following commands still on some dopamine. Although only 2 mics. Blood sugar elevated this morning. Tube feeds was held last night as patient had one episode of explosive diarrhea which is likely due to the mag citrate. Hospitalist Physical - Physical exam Narrative exam: GENERAL: Still on full ventilatory support. well-developed obese more awake today.. ETT HEENT: Normocephalic. Atraumatic. No conjunctival congestion or icterus. Patient has moist mucous membranes. ETT NECK: Supple. Trachea midline. CHEST/LUNGS: Coarse breath sound auscultated bilaterally, HEART/CARDIOVASCULAR: Regular in rate and rhythm. S1 and S2 positive. ABDOMEN: Abdomen is soft, distended but nontender. Patient has normal bowel sounds. SKIN: Warm and dry. NEURO: Follows some command, AMS, no focal deficits MUSCULOSKELETAL: No joint effusion or tenderness. EXTRIMITY: No edema, no cyanosis or clubbing. PSYCH: Calm - Constitutional Vitals: Temp Pulse Resp BP Pulse Ox 98 F 55 L 24 104/56 94 01/08/20 08:00 01/08/20 07:58 01/08/20 07:58 01/08/20 07:58 01/08/20 07:58 General appearance: Present: severe distress HEART Score - HEART Score Troponin: Troponin T 0.011 ng/mL (0.00-0.029) 12/18/19 14:45 Results - Labs CBC & Chem 7: 01/06/20 04:58 01/07/20 11:40 Labs: Laboratory Last Values WBC 8.3 K/mm3 (4.5-11.0) 01/06/20 04:58 RBC 3.67 M/mm3 (3.65-5.03) 01/06/20 04:58 Hgb 8.8 gm/dl (11.8-15.2) L 01/06/20 04:58 Hct 28.7 % (35.5-45.6) L 01/06/20 04:58 MCV 78 fl (84-94) L 01/06/20 04:58 MCH 24 pg (28-32) L 01/06/20 04:58 MCHC 31 % (32-34) L 01/06/20 04:58 RDW 18.7 % (13.2-15.2) H 01/06/20 04:58 Plt Count 522 K/mm3 (140-440) H 01/06/20 04:58 Lymph % (Auto) 19.9 % (13.4-35.0) 01/02/20 05:00 Mcmullen % (Auto) 9.4 % (0.0-7.3) H 01/02/20 05:00 Eos % (Auto) 11.2 % (0.0-4.3) H 01/02/20 05:00 Baso % (Auto) 0.8 % (0.0-1.8) 01/02/20 05:00 Lymph # 1.4 K/mm3 (1.2-5.4) 01/02/20 05:00 Mcmullen # 0.7 K/mm3 (0.0-0.8) 01/02/20 05:00 Eos # 0.8 K/mm3 (0.0-0.4) H 01/02/20 05:00 Baso # 0.1 K/mm3 (0.0-0.1) 01/02/20 05:00 Add Manual Diff Complete 12/24/19 04:53 Total Counted 100 12/24/19 04:53 Seg Neutrophils % 58.7 % (40.0-70.0) 01/02/20 05:00 Seg Neuts % (Manual) 60.0 % (40.0-70.0) 12/24/19 04:53 Band Neutrophils % 0 % 12/24/19 04:53 Lymphocytes % (Manual) 20.0 % (13.4-35.0) 12/24/19 04:53 Reactive Lymphs % (Man) 0 % 12/24/19 04:53 Monocytes % (Manual) 15.0 % (0.0-7.3) H 12/24/19 04:53 Eosinophils % (Manual) 4.0 % (0.0-4.3) 12/24/19 04:53 Basophils % (Manual) 0 % (0.0-1.8) 12/24/19 04:53 Metamyelocytes % 1.0 % 12/24/19 04:53 Myelocytes % 0 % 12/24/19 04:53 Promyelocytes % 0 % 12/24/19 04:53 Blast Cells % 0 % 12/24/19 04:53 Nucleated RBC % Not Reportable 12/24/19 04:53 Seg Neutrophils # 4.0 K/mm3 (1.8-7.7) 01/02/20 05:00 Seg Neutrophils # Man 3.5 K/mm3 (1.8-7.7) 12/24/19 04:53 Band Neutrophils # 0.0 K/mm3 12/24/19 04:53 Lymphocytes # (Manual) 1.2 K/mm3 (1.2-5.4) 12/24/19 04:53 Abs React Lymphs (Man) 0.0 K/mm3 12/24/19 04:53 Monocytes # (Manual) 0.9 K/mm3 (0.0-0.8) H 12/24/19 04:53 Eosinophils # (Manual) 0.2 K/mm3 (0.0-0.4) 12/24/19 04:53 Basophils # (Manual) 0.0 K/mm3 (0.0-0.1) 12/24/19 04:53 Metamyelocytes # 0.1 K/mm3 12/24/19 04:53 Myelocytes # 0.0 K/mm3 12/24/19 04:53 Promyelocytes # 0.0 K/mm3 12/24/19 04:53 Blast Cells # 0.0 K/mm3 12/24/19 04:53 WBC Morphology Not Reportable 12/24/19 04:53 Hypersegmented Neuts Not Reportable 12/24/19 04:53 Hyposegmented Neuts Not Reportable 12/24/19 04:53 Hypogranular Neuts Not Reportable 12/24/19 04:53 Smudge Cells Not Reportable 12/24/19 04:53 Toxic Granulation Not Reportable 12/24/19 04:53 Toxic Vacuolation Not Reportable 12/24/19 04:53 Dohle Bodies Not Reportable 12/24/19 04:53 Pelger-Huet Anomaly Not Reportable 12/24/19 04:53 Mervin Rods Not Reportable 12/24/19 04:53 Platelet Estimate Consistent w auto 12/24/19 04:53 Clumped Platelets Not Reportable 12/24/19 04:53 Plt Clumps, EDTA Not Reportable 12/24/19 04:53 Large Platelets Not Reportable 12/24/19 04:53 Giant Platelets Not Reportable 12/24/19 04:53 Platelet Satelliting Not Reportable 12/24/19 04:53 Plt Morphology Comment Not Reportable 12/24/19 04:53 RBC Morphology Not Reportable 12/24/19 04:53 Dimorphic RBCs Not Reportable 12/24/19 04:53 Polychromasia Rare 12/24/19 04:53 Hypochromasia 1+ 12/24/19 04:53 Poikilocytosis Not Reportable 12/24/19 04:53 Anisocytosis 1+ 12/24/19 04:53 Microcytosis Few 12/24/19 04:53 Macrocytosis Not Reportable 12/24/19 04:53 Spherocytes Not Reportable 12/24/19 04:53 Pappenheimer Bodies Not Reportable 12/24/19 04:53 Sickle Cells Not Reportable 12/24/19 04:53 Target Cells Not Reportable 12/24/19 04:53 Tear Drop Cells Not Reportable 12/24/19 04:53 Ovalocytes Few 12/24/19 04:53 Helmet Cells Not Reportable 12/24/19 04:53 [place] Bodies Not Reportable 12/24/19 04:53 [place] Rings Not Reportable 12/24/19 04:53 [place] Cells Not Reportable 12/24/19 04:53 Bite Cells Not Reportable 12/24/19 04:53 Crenated Cell Not Reportable 12/24/19 04:53 Elliptocytes Not Reportable 12/24/19 04:53 Acanthocytes (Spur) Not Reportable 12/24/19 04:53 Rouleaux Not Reportable 12/24/19 04:53 Hemoglobin C Crystals Not Reportable 12/24/19 04:53 Schistocytes Not Reportable 12/24/19 04:53 Malaria parasites Not Reportable 12/24/19 04:53 Gianni Bodies Not Reportable 12/24/19 04:53 Hem Pathologist Commnt No 12/24/19 04:53 PT 14.0 Sec. (12.2-14.9) 12/18/19 14:45 INR 1.10 (0.87-1.13) 12/18/19 14:45 APTT 29.4 Sec. (24.2-36.6) 12/18/19 14:45 D-Dimer 534.45 ng/mlDDU (0-234) H 12/18/19 14:45 ABG pH 7.414 pH Units (7.350-7.450) 01/08/20 05:27 ABG pCO2 42.3 mm Hg 01/08/20 05:27 ABG pO2 67.8 mm Hg (80.0-90.0) L 01/08/20 05:27 ABG HCO3 26.5 mmol/L (20.0-26.0) H 01/08/20 05:27 ABG O2 Saturation 93.2 % (95.0-99.0) L 01/08/20 05:27 ABG O2 Content 10.4 (0.0-44) 01/08/20 05:27 ABG Base Excess 1.7 mmol/L (-2.0-3.0) 01/08/20 05:27 ABG Hemoglobin 8.1 gm/dl (14.0-18.0) L 01/08/20 05:27 ABG Carboxyhemoglobin 1.9 % (0.0-5.0) 01/08/20 05:27 ABG Methemoglobin 1.1 % (0.0-1.5) 01/08/20 05:27 Oxyhemoglobin 90.4 % (95.0-99.0) L 01/08/20 05:27 FiO2 35 % 01/08/20 05:27 Sodium 139 mmol/L (137-145) D 01/07/20 11:40 Potassium 4.0 mmol/L (3.6-5.0) 01/07/20 11:40 Chloride 98.8 mmol/L (98-107) 01/07/20 11:40 Carbon Dioxide 29 mmol/L (22-30) 01/07/20 11:40 Anion Gap 15 mmol/L 01/07/20 11:40 BUN 21 mg/dL (9-20) H 01/07/20 11:40 Creatinine 1.2 mg/dL (0.8-1.5) 01/07/20 11:40 Estimated GFR > 60 ml/min 01/07/20 11:40 BUN/Creatinine Ratio 18 % 01/07/20 11:40 Glucose 190 mg/dL (75-100) H 01/07/20 11:40 POC Glucose 346 (70-105) H 01/08/20 05:26 Lactic Acid 1.70 mmol/L (0.7-2.0) 12/30/19 05:06 Calcium 9.8 mg/dL (8.4-10.2) 01/07/20 11:40 Phosphorus 3.70 mg/dL (2.5-4.5) 12/27/19 03:48 Magnesium 2.60 mg/dL (1.7-2.3) H 12/30/19 05:06 Ferritin 83.4 ng/mL (13.0-400.0) 12/18/19 14:45 Total Bilirubin 0.30 mg/dL (0.1-1.2) 12/19/19 04:13 AST 85 units/L (5-40) H 12/19/19 04:13 ALT 61 units/L (7-56) H 12/19/19 04:13 Alkaline Phosphatase 80 units/L (35-129) 12/19/19 04:13 Ammonia 39.0 umol/L (25-60) 12/18/19 14:45 Lactate Dehydrogenase 235 units/L (91-180) H 12/18/19 14:45 Lactate Dehydrogenase 236 units/L (91-180) H 12/18/19 14:45 Total Creatine Kinase 40 units/L (55-170) L 12/18/19 14:45 Troponin T 0.011 ng/mL (0.00-0.029) 12/18/19 14:45 C-Reactive Protein 8.40 mg/dL (0.00-1.30) H 12/18/19 14:45 C-Reactive Protein 8.50 mg/dL (0.00-1.30) H 12/18/19 14:45 Total Protein 6.8 g/dL (6.3-8.2) 12/19/19 04:13 Albumin 3.0 g/dL (3.9-5) L 12/19/19 04:13 Albumin/Globulin Ratio 0.8 % 12/19/19 04:13 Procalcitonin 0.22 ng/mL (<0.15) 12/18/19 14:45 TSH 2.300 mlU/mL (0.270-4.200) 12/18/19 14:45 Urine Color Yellow (Yellow) 12/19/19 16:50 Urine Turbidity Clear (Clear) 12/19/19 16:50 Urine pH 5.0 (5.0-7.0) 12/19/19 16:50 Ur Specific [employer] 1.010 (1.003-1.030) 12/19/19 16:50 Urine Protein <15 mg/dl mg/dL (Negative) 12/19/19 16:50 Urine Glucose (UA) 150 mg/dL (Negative) 12/19/19 16:50 Urine Ketones Neg mg/dL (Negative) 12/19/19 16:50 Urine Blood Neg (Negative) 12/19/19 16:50 Urine Nitrite Neg (Negative) 12/19/19 16:50 Urine Bilirubin Neg (Negative) 12/19/19 16:50 Urine Urobilinogen < 2.0 mg/dL (<2.0) 12/19/19 16:50 Ur Leukocyte Esterase Tr (Negative) 12/19/19 16:50 Urine WBC (Auto) 7.0 /HPF (0.0-6.0) H 12/19/19 16:50 Urine RBC (Auto) 4.0 /HPF (0.0-6.0) 12/19/19 16:50 U Epithel Cells (Auto) 1.0 /HPF (0-13.0) 12/19/19 16:50 Urine Bacteria (Auto) 1+ /HPF (Negative) 12/19/19 16:50 Urine Mucus Few /HPF 12/19/19 16:50 Urine Osmolality 140 Mosm/kg 12/25/19 16:45 Urine Creatinine < 4.2 mg/dL (0.1-20.0) 12/25/19 16:45 Urine Sodium 10 mmol/L 12/25/19 16:45 Urine Total Protein < 4 mg/dL (5-11.8) L 12/25/19 16:45 Digoxin 0.3 ng/mL (0.9-2.0) L 12/18/19 14:45 Salicylates < 0.3 mg/dL (2.8-20.0) L 12/18/19 14:45 Acetaminophen < 5.0 ug/mL (10.0-30.0) L 12/18/19 14:45 Plasma/Serum Alcohol < 0.01 % (0-0.07) 12/18/19 14:45 Coronavirus (PCR) Negative (Negative) 12/21/19 14:45 AFB Identification 01/05/20 09:05 Fungal Id Prelim 01/05/20 09:05 Blood Type A POSITIVE 12/18/19 14:45 Antibody Screen Negative 12/18/19 14:45 Microbiology: Microbiology 01/05/20 09:05 Bronchial Washings - Left Lower Lobe Respiratory Culture - Fi nal - Diagnostic Impressions Diagnostic Impressions: Echocardiogram 12/28/19 14:07 Transthoracic Echocardiogram Indication: SOB BP: 95/51 HR: 99 Conclusions *The left ventricular chamber size is mildly dilated. *There is no left ventricular hypertrophy. *Global left ventricular systolic function is mildly decreased. *The estimated ejection fraction is 45-50%. *Abnormal left ventricular diastolic filling is observed, consistent with impaired relaxation. *The right ventricular global systolic function is mildly reduced. *The right ventricular systolic pressure is calculated at 53 mmHg. Findings Left Ventricle: The left ventricular chamber size is mildly dilated. There is no left ventricular hypertrophy. Global left ventricular systolic function is mildly decreased. The estimated ejection fraction is 45-50%. Abnormal left ventricular diastolic filling is observed, consistent with impaired relaxation. Left Atrium: The left atrial chamber size is normal. Right Ventricle: The right ventricular cavity size is normal. The right ventricular global systolic function is mildly reduced. Right Atrium: The right atrial cavity size is normal. Aortic Valve: The aortic valve leaflets are mildly thickened. There is no evidence of aortic regurgitation. Mitral Valve: The mitral valve leaflets are mildly thickened. There is no evidence of mitral regurgitation. Tricuspid Valve: The tricuspid valve leaflets are normal. There is mild tricuspid regurgitation. The right ventricular systolic pressure is calculated at 53 mmHg. Pulmonic Valve: The pulmonic valve appears normal. There is trace pulmonic regurgitation. Pericardium: There is no pericardial effusion. Aorta: The aorta appears normal. Venous: The inferior vena cava is dilated. Measurements Chambers 2D Name Value Normal Range IVSd (2D) 1.08 cm (0.6 - 1.1) LVPWd (2D) 1 cm (0.6 - 1.1) LVIDd (2D) 4.67 cm (3.7 - 5.6) LVIDs (2D) 3.89 cm (2 - 3.8) LV FS (2D) 16.76 % - EF Teichholz (2D) 35.14 % - Ao root diameter (2D) 2.86 cm (2 - 3.7) Volumes/Mass Name Value Normal Range LA ESV SP 4CH (A/L) 31.8 ml - LA ESV SP 2CH (A/L) 27.37 ml - LA ESV BP (A/L) 33.43 ml - LA ESV BP (A/L) index 14.11 ml/m2 - LA ESV SP 4CH (MOD) 26.83 ml - LA ESV SP 2CH (MOD) 29.59 ml - LA ESV BP (MOD) 30.47 ml - LA ESV BP (MOD) index 12.86 ml/m2 - Diastolic/Systolic Function Name Value Normal Range MV E-wave Vmax 0.39 m/sec - MV deceleration time 115.69 msec - MV A-wave Vmax 0.63 m/sec - MV E:A ratio 0.62 ratio - Aortic Valve Name Value Normal Range AV Vmax 1.14 m/sec - AV VTI 20.1 cm - AV peak gradient 5.17 mmHg - AV mean gradient 3.89 mmHg - LVOT diameter 2.02 cm - LVOT Vmax 0.99 m/sec - LVOT VTI 16.45 cm - LVOT peak gradient 3.95 mmHg - LVOT mean gradient 2.45 mmHg - SV LVOT 52.45 ml - RALPH (continuity Vmax) 2.78 cm2 - RALPH (continuity VTI) 2.61 cm2 - Tricuspid Valve Name Value Normal Range TR Vmax 3.36 m/sec - TR peak gradient 45 mmHg - RAP 8 mmHg - RVSP 53 mmHg - IVC diameter 2.33 cm (1.2 - 2.3) Pulmonic Valve/Qp:Qs Name Value Normal Range PV Vmax 0.89 m/sec - PV peak gradient 3.16 mmHg - FL end-diastolic Vmax 1.42 m/sec - PV acceleration time 79.92 msec - Sykes/IV: Voiding Method Condom Catheter IV Catheter Type [Right Upper PICC Line arm] IV Catheter Type [Right Leg] Intra-osseous IV Catheter Type [Right Wrist] Peripheral IV IV Catheter Type [Right Hand] INT / Saline Lock IV Catheter Type [Left Hand] INT / Saline Lock IV Catheter Type [Left Forearm INT / Saline Lock ] IV Catheter Type [Left Triple Lumen Cath Internal Jugular] Active Medications - Current Medications Current Medications: Generic Name Dose Route Start Last Admin Trade Name Freq PRN Reason Stop Dose Admin Acetaminophen 650 mg 12/29/19 09:21 01/03/20 18:31 Tylenol PO 650 mg Q4H PRN Administration Non Cardiac Pain or Temp>100.5 Albuterol/Ipratropium 1 ampul 12/18/19 14:00 01/08/20 07:58 Duoneb *Not For Prn Use* IH 1 ampul TIDRT SHANEL Administration Lipase/Protease/Amylase 1 each 12/19/19 08:29 Pancreaztatyana Cabrera 10,500 Unit FEEDTUBE PRN PRN For Clogged Feeding Tube Aspirin 81 mg 12/19/19 10:00 01/07/20 10:32 Baby Aspirin PO 81 mg DAILY SHANEL Administration Bisacodyl 10 mg 01/02/20 15:48 01/02/20 18:25 Dulcolax FL 10 mg QDAY PRN Administration Constipation Docusate Sodium 100 mg 01/01/20 22:00 01/07/20 21:59 Colace PO 100 mg BID SHANEL Administration Famotidine 20 mg 12/20/19 10:00 01/07/20 21:59 Pepcid PO 20 mg BID SHANEL Administration Fentanyl 50 mcg 12/27/19 16:57 Sublimaze IV Q10MIN PRN ANALGESIA Folic Acid 1 mg 12/19/19 10:00 01/07/20 10:32 Folvite PO 1 mg DAILY SHANEL Administration Heparin Sodium (Porcine) 5,000 unit 12/18/19 22:00 01/07/20 21:59 Heparin SUB-Q 5,000 unit Q12HR SHANEL Administration Hydrocortisone Sodium Succinate 100 mg 01/07/20 14:00 01/08/20 06:28 Solu-Cortef IV 01/12/20 13:59 100 mg Q8HR SHANEL Administration Hydrophilic Ointment 1 applic 12/18/19 12:35 Vaseline Lip Therapy TP Q2HR PRN Dry Lips Fentanyl Citrate 2,000 mcg in 100 mls @ 5.85 mls/hr 12/27/19 17:00 01/08/20 01:23 Fentanyl Drip Premix IV 1 mcg/kg/hr TITR SHANEL 5.85 mls/hr Administration Protocol 1 MCG/KG/HR Norepinephrine 4 mg in 250 mls @ 7.5 mls/hr 12/28/19 15:00 12/31/19 18:12 Levophed Drip 4 Mg/Ns 250 Ml IV 0 mcg/min TITR SHANEL 0 mls/hr Titration Protocol 2 MCG/MIN Vasopressin 20 unit/ Sodium 101 mls @ 9.09 mls/hr 12/30/19 12:30 01/01/20 13:44 Chloride IV 0 units/min TITR SHANEL 0 mls/hr Titration Protocol 0.03 UNITS/MIN Dopamine HCl/Dextrose 800 mg in 250 mls @ 4.388 mls/hr 12/31/19 16:00 01/07/20 18:56 Intropin Drip 800 Mg/D5w 250 Ml IV 2 mcg/kg/min TITR SHANEL 4.388 mls/hr Administration Protocol 2 MCG/KG/MIN Dextrose 1,000 mls @ 75 mls/hr 01/07/20 13:00 01/08/20 01:24 D5w IV 75 mls/hr DIRECT SHANEL Administration Insulin Human Lispro 0 unit 12/31/19 14:00 01/08/20 06:28 Humalog SUB-Q 8 unit Q4HR SHANEL Administration Protocol Levothyroxine Sodium 88 mcg 12/19/19 06:00 01/08/20 06:28 Synthroid PO 88 mcg QAM@0600 SHANEL Administration Multi-Ingred Cream/Lotion/Oil/Oint 1 applic 12/18/19 12:35 Artificial Tears Ophth Oint OU Q4HR PRN Dry Eye(s) Polyethylene Glycol 17 gm 01/01/20 22:00 01/07/20 21:59 Miralax 3350 PO 17 gm QHS SHANEL Administration Potassium Chloride 40 meq 12/29/19 10:00 01/07/20 10:38 Potassium Chloride FEEDTUBE 40 meq QDAY SHANEL Administration Simple Syrup 15 ml 12/19/19 08:29 01/06/20 04:58 Simple Syrup FEEDTUBE 15 ml PRN PRN Administration Hypoglycemia Simple Syrup 30 ml 12/19/19 08:29 Simple Syrup FEEDTUBE PRN PRN Hypoglycemia Sodium Bicarbonate 325 mg 12/19/19 08:29 Sodium Bicarbonate FEEDTUBE PRN PRN For Clogged Feeding Tube Sodium Chloride 10 ml 12/18/19 22:00 01/07/20 22:00 Sodium Chloride Flush Syringe 10 Ml IV 10 ml BID SHANEL Administration Sodium Chloride 10 ml 12/18/19 13:31 Sodium Chloride Flush Syringe 10 Ml IV PRN PRN LINE FLUSH Nutrition/Malnutrition Assess - Dietary Evaluation Nutrition/Malnutrition Findings: Nutrition Notes Start: 12/19/19 08:16 Freq: Status: Active Protocol: Document 01/06/20 15:15 LM (Rec: 01/06/20 15:20 LM [id number]) Nutrition Notes Initial or Follow up Reassessment Current Diagnosis Diabetes,Sepsis,Hypertension, Heart Failure,Respiratory Failure Other Pertinent Diagnosis Suspected COVID-19, pneu Current Diet Vital AF 1.2 at 65ml/hr Labs/Tests Na 150 BUN 25 BG 55 Pertinent Medications Reviewed Height 6 ft 2 in Weight 117 kg Henriette Body Weight (kg) 86.36 BMI 33.1 Weight Status Obese Subjective/Other Information TF is at 30ml/hr. RN stated TF will stay at 30ml/hr for now. Percent of energy/protein needs met: 43%/31% Burn Absent Trauma Absent Current % PO Negligible Minimum of two criteria No physical signs of malnutrition #1 Nutrition Diagnosis Inadequate oral intake Diagnosis Progress(for reassessment Continues documentation) Is patient on ventilator? Yes Is Patient Ambulatory and/or Out of Bed No REE-([facility]-confined to bed) 2469.960 Kcal/Kg value to use for calculation 17 Approximate Energy Requirements Using 1989 kcal/Kg Calculation Used for Recommendations Kcal/kg Additional Notes Protein: 172g (>/=2g/kg using IBW 86kg) Fluid 1ml/kcal Nutrition Intervention Change Diet Order: TF Nutrition Support: Vital AF 1.2 at 65ml/hr Flush 300ml q4h for hypernatremia Flush 100ml q4h once resolved Kcal 1,872 Protein (gm) 117 Fluid (mL) 1,265 Goal #1 TF tolerance Goal #2 Meet at least 75% of energy and protein needs Anticipated Discharge Needs: unable to determine at this time Follow-Up By: 01/10/20 Additional Comments F/U for TF/tolerance, goal rate, Na
[2020-01-08] MEDS: FAMOTIDINE 20 MG TAB PO SCH ×2 (09:09→21:54)
[2020-01-08] MEDS: POTASSIUM CHLORIDE 20 MEQ PACKET FEEDTUBE SCH (09:09)
[2020-01-08] MEDS: HEPARIN 5,000 UNIT/1 ML VIAL SUB-Q SCH ×2 (09:10→21:54)
[2020-01-08] MEDS: FOLIC ACID 1 MG TAB PO SCH (09:10)
[2020-01-08] MEDS: ASPIRIN 81 MG TAB CHEW PO SCH (09:10)
[2020-01-08] MEDS: DOCUSATE SODIUM 100 MG/10 ML ORAL LIQD PO SCH (09:11)
[2020-01-08 09:52] LABS: BUN/Creatinine Ratio 17; Blood Urea Nitrogen 22 mg/dL (9-20); Calcium 9.2 mg/dL (8.4-10.2); Hemolysis Index 0
--- NOTE | 2020-01-08 10:51 | Progress Note ---
Assessment and Plan - Patient Problems (1) Hypotension Current Visit: Yes Status: Acute Plan to address problem: Continue aggressive volume replacement, correction of hypernatremia, and gradual wean off of dopamine. (2) Cardiomyopathy Current Visit: Yes Status: Acute Plan to address problem: Echocardiogram reviewed, shows a moderate severity dilated cardiomyopathy with estimated ejection fraction 35 to 40%. We will continue conservative supportive cardiac management, with volume hydration as tolerated. Subjective Date of service: 01/08/20 Principal diagnosis: Ac. Hypoxemic Resp Failure; Septic Shock; Magdiel. PNA; PUI COVID-19; CHF; JOE Interval history: Patient is on the vent, sedated, on supportive management. No new cardiac complaints. Objective Vital Signs Temp Pulse Pulse Pulse Resp Resp BP 01/08/20 10:00 50 L 22 114/55 01/08/20 09:30 51 L 23 101/56 01/08/20 09:00 54 L 24 112/61 01/08/20 08:30 112/62 01/08/20 08:00 98 F 47 L 54 L 24 104/56 01/08/20 07:58 51 L 55 L 24 104/56 01/08/20 07:30 49 L 24 109/55 01/08/20 07:00 59 L 24 105/52 01/08/20 06:30 59 L 22 107/57 01/08/20 06:00 59 L 21 103/63 01/08/20 05:30 61 24 109/60 01/08/20 05:00 58 L 24 103/61 01/08/20 04:44 55 L 103/61 01/08/20 04:30 48 L 24 107/59 01/08/20 04:14 53 L 53 L 18 01/08/20 04:00 98.6 F 58 L 24 111/70 01/08/20 03:30 62 24 120/66 01/08/20 03:00 76 21 95/52 01/08/20 02:30 58 L 24 95/52 01/08/20 02:00 60 24 92/49 01/08/20 01:30 59 L 19 123/74 01/08/20 01:00 74 19 102/49 01/08/20 00:41 71 18 01/08/20 00:38 71 01/08/20 00:30 64 25 H 102/49 01/08/20 00:01 98.9 F 01/08/20 00:00 58 L 20 107/59 01/07/20 23:30 69 23 94/46 01/07/20 23:00 84 20 103/57 01/07/20 22:30 76 19 108/47 01/07/20 22:02 94 H 19 101/53 01/07/20 22:00 72 22 101/53 01/07/20 21:30 81 23 109/59 01/07/20 21:12 65 24 01/07/20 21:08 93 H 98/53 01/07/20 21:00 82 87 18 98/53 01/07/20 20:31 68 20 101/51 01/07/20 20:01 68 23 113/55 01/07/20 20:00 98.6 F 87 01/07/20 19:30 74 19 102/51 01/07/20 19:01 72 12 99/46 01/07/20 18:30 86 12 94/56 01/07/20 18:00 60 12 111/54 01/07/20 17:31 65 25 H 90/65 01/07/20 17:01 65 17 113/59 01/07/20 16:31 69 20 88/58 01/07/20 16:00 98.3 F 78 78 15 90/57 01/07/20 15:30 88 13 90/56 01/07/20 15:01 105 H 22 88/43 01/07/20 14:30 77 20 109/49 01/07/20 14:01 78 25 H 97/53 01/07/20 14:00 85 24 01/07/20 13:30 94 H 17 104/52 01/07/20 13:00 65 24 110/61 01/07/20 12:30 72 24 89/50 01/07/20 12:01 70 20 93/42 01/07/20 12:00 98.7 F 70 70 20 01/07/20 11:54 69 123/54 01/07/20 11:30 59 L 20 130/63 01/07/20 11:00 58 L 24 103/54 Pulse Ox 01/08/20 10:00 100 01/08/20 09:30 99 01/08/20 09:00 99 01/08/20 08:30 100 01/08/20 08:00 94 07/04/20 07:58 94 01/08/20 07:30 94 01/08/20 07:00 92 01/08/20 06:30 92 01/08/20 06:00 90 01/08/20 05:30 87 01/08/20 05:00 90 01/08/20 04:44 94 01/08/20 04:30 01/08/20 04:14 95 01/08/20 04:00 01/08/20 03:30 01/08/20 03:00 01/08/20 02:30 94 01/08/20 02:00 93 01/08/20 01:30 93 01/08/20 01:00 98 01/08/20 00:41 95 01/08/20 00:38 01/08/20 00:30 95 01/08/20 00:01 01/08/20 00:00 96 01/07/20 23:30 95 01/07/20 23:00 95 01/07/20 22:30 94 01/07/20 22:02 95 01/07/20 22:00 95 01/07/20 21:30 98 01/07/20 21:12 01/07/20 21:08 97 01/07/20 21:00 96 01/07/20 20:31 95 01/07/20 20:01 96 01/07/20 20:00 01/07/20 19:30 96 01/07/20 19:01 93 01/07/20 18:30 95 01/07/20 18:00 95 01/07/20 17:31 95 01/07/20 17:01 92 01/07/20 16:31 92 01/07/20 16:00 91 01/07/20 15:30 92 01/07/20 15:01 97 01/07/20 14:30 96 01/07/20 14:01 97 01/07/20 14:00 01/07/20 13:30 93 01/07/20 13:00 96 01/07/20 12:30 96 01/07/20 12:01 96 01/07/20 12:00 96 01/07/20 11:54 96 01/07/20 11:30 97 01/07/20 11:00 99 - Physical Examination General: Other (intubated on the vent) Neck: Positive: neck supple Cardiac: Positive: Regular Rhythm Lungs: Positive: Decreased Breath Sounds Neuro: Positive: Other (Intubated, on the vent) Abdomen: Positive: Soft Skin: Positive: Clear Extremities: Absent: edema - Labs and Meds CBC 01/08/20 Range/Units 08:03 WBC 7.2 (4.5-11.0) K/mm3 RBC 3.14 L (3.65-5.03) M/mm3 Hgb 7.6 L (11.8-15.2) gm/dl Hct 24.3 L (35.5-45.6) % Plt Count 509 H (140-440) K/mm3 Comprehensive Metabolic Panel 01/07/20 01/08/20 Range/Units 11:40 08:03 Sodium 139 D 132 L D (137-145) mmol/L Potassium 4.0 4.9 D (3.6-5.0) mmol/L Chloride 98.8 94.7 L (98-107) mmol/L Carbon Dioxide 29 27 (22-30) mmol/L BUN 21 H 22 H (9-20) mg/dL Creatinine 1.2 1.3 (0.8-1.5) mg/dL Glucose 190 H 284 H (75-100) mg/dL Calcium 9.8 9.2 (8.4-10.2) mg/dL - Allied health notes Allied health notes reviewed: RT
--- NOTE | 2020-01-08 12:42 | Progress Note ---
Assessment and Plan - Patient Problems (1) Acute kidney injury Current Visit: Yes Status: Acute Plan to address problem: JAGDEEP 2/2 pre-renal injury in setting of sepsis and hemodynamic instability and now with vasopressor requirements. pt remains non-oliguric, renal function stable . Avoid nephrotoxins, maintain MAP >65 mmHg. Will monitor lytes/renal p arameters closely and make further recommendations (2) Acute respiratory failure Current Visit: Yes Status: Acute Qualifiers: Plan to address problem: Management on vent per Pulmonary/ICU. (3) Hypernatremia Current Visit: Yes Status: Acute Plan to address problem: resolved (4) Pneumonia Current Visit: No Status: Acute Qualifiers: Pneumonia type: due to unspecified organism Laterality: left Lung location: unspecified part of lung Qualified Code(s): J18.9 - Pneumonia, unspecified organism Plan to address problem: Management per primary/ICU team. (5) Diastolic CHF Current Visit: Yes Status: Acute Qualifiers: Heart failure chronicity: acute on chronic Qualified Code(s): I50.33 - Acute on chronic diastolic (congestive) heart failure Plan to address problem: management as per cardiology (6) Obesity hypoventilation syndrome Current Visit: Yes Status: Acute Subjective Date of service: 01/08/20 Principal diagnosis: Ac. Hypoxemic Resp Failure; Septic Shock; Magdiel. PNA; PUI COVID-19; CHF; JOE Interval history: Pt remains on vent, off vasopressor support. Objective - Vital Signs Vital signs: Vital Signs - 12hr 01/08/20 01/08/20 01/08/20 01:00 01:30 02:00 Temperature Pulse Rate 74 59 L 60 Pulse Rate [ Bilateral] Pulse Rate [ From Monitor] Respiratory 19 19 24 Rate Respiratory Rate [Bilateral ] Blood Pressure 102/49 123/74 92/49 O2 Sat by Pulse 98 93 93 Oximetry 01/08/20 01/08/20 01/08/20 02:30 03:00 03:30 Temperature Pulse Rate 58 L 76 62 Pulse Rate [ Bilateral] Pulse Rate [ From Monitor] Respiratory 24 21 24 Rate Respiratory Rate [Bilateral ] Blood Pressure 95/52 95/52 120/66 O2 Sat by Pulse 94 Oximetry 01/08/20 01/08/20 01/08/20 04:00 04:14 04:30 Temperature 98.6 F Pulse Rate 58 L 53 L 48 L Pulse Rate [ Bilateral] Pulse Rate [ 53 L From Monitor] Respiratory 24 18 24 Rate Respiratory Rate [Bilateral ] Blood Pressure 111/70 107/59 O2 Sat by Pulse 95 Oximetry 01/08/20 01/08/20 01/08/20 04:44 05:00 05:30 Temperature Pulse Rate 55 L 58 L 61 Pulse Rate [ Bilateral] Pulse Rate [ From Monitor] Respiratory 24 24 Rate Respiratory Rate [Bilateral ] Blood Pressure 103/61 103/61 109/60 O2 Sat by Pulse 94 90 87 Oximetry 01/08/20 01/08/20 01/08/20 06:00 06:30 07:00 Temperature Pulse Rate 59 L 59 L 59 L Pulse Rate [ Bilateral] Pulse Rate [ From Monitor] Respiratory 21 22 24 Rate Respiratory Rate [Bilateral ] Blood Pressure 103/63 107/57 105/52 O2 Sat by Pulse 90 92 92 Oximetry 01/08/20 01/08/20 01/08/20 07:30 07:58 08:00 Temperature 98 F Pulse Rate 49 L 51 L 47 L Pulse Rate [ 55 L Bilateral] Pulse Rate [ 54 L From Monitor] Respiratory 24 24 Rate Respiratory 24 Rate [Bilateral ] Blood Pressure 109/55 104/56 104/56 O2 Sat by Pulse 94 94 94 Oximetry 01/08/20 01/08/20 01/08/20 08:30 09:00 09:30 Temperature Pulse Rate 54 L 51 L Pulse Rate [ Bilateral] Pulse Rate [ From Monitor] Respiratory 24 23 Rate Respiratory Rate [Bilateral ] Blood Pressure 112/62 112/61 101/56 O2 Sat by Pulse 100 99 99 Oximetry 01/08/20 01/08/20 01/08/20 10:00 10:30 11:00 Temperature Pulse Rate 50 L 54 L 52 L Pulse Rate [ Bilateral] Pulse Rate [ From Monitor] Respiratory 22 18 20 Rate Respiratory Rate [Bilateral ] Blood Pressure 114/55 110/62 107/61 O2 Sat by Pulse 100 100 100 Oximetry 01/08/20 01/08/20 11:30 12:00 Temperature 98.2 F Pulse Rate 61 51 L Pulse Rate [ Bilateral] Pulse Rate [ 51 L From Monitor] Respiratory 17 23 Rate Respiratory Rate [Bilateral ] Blood Pressure 121/67 115/65 O2 Sat by Pulse 100 100 Oximetry - General Appearance General appearance: well-developed, chronically ill, intubated EENT: ATNC, mucous membranes moist Neck: no JVD Respiratory: Present: Decreased Breath Sounds Cardiology: regular, S1S2 Gastrointestinal: normoactive bowel sounds Integumentary: no rash Neurologic: other (intubated ) - Lab 01/08/20 08:03 01/08/20 08:03 Most recent lab results ABG pH 7.414 pH Units (7.350-7.450) 01/08/20 05:27 ABG pCO2 42.3 mm Hg 01/08/20 05:27 ABG pO2 67.8 mm Hg (80.0-90.0) L 01/08/20 05:27 ABG HCO3 26.5 mmol/L (20.0-26.0) H 01/08/20 05:27 ABG O2 Saturation 93.2 % (95.0-99.0) L 01/08/20 05:27 Calcium 9.2 mg/dL (8.4-10.2) 01/08/20 08:03 Phosphorus 3.70 mg/dL (2.5-4.5) 12/27/19 03:48 Magnesium 2.60 mg/dL (1.7-2.3) H 12/30/19 05:06 Urine Creatinine < 4.2 mg/dL (0.1-20.0) 12/25/19 16:45 Urine Sodium 10 mmol/L 12/25/19 16:45 Urine Total Protein < 4 mg/dL (5-11.8) L 12/25/19 16:45 Medications & Allergies - Medications Allergies/Adverse Reactions: Allergies No Known Allergies Allergy (Unverified 12/19/19 01:31) Home Medications: Home Medications Medication Instructions Recorded Confirmed Last Taken Type Ipratropium/Albuterol Sulfate 1 ampul IH TIDRT #90 ampul.neb 06/02/19 12/28/19 Unknown Rx [DUONEB *Not for PRN Use*] Aspirin [Aspirin BABY CHEW TAB] 81 mg PO DAILY 06/03/19 12/28/19 3 Days Ago History ~05/31/19 Desmopressin [Ddavp] 0.2 mg PO BID 06/03/19 12/28/19 3 Days Ago History ~05/31/19 Digoxin [Lanoxin] 0.125 mg PO DAILY 06/03/19 12/28/19 3 Days Ago History ~05/31/19 Folic Acid 100 mg PO DAILY 06/03/19 12/28/19 3 Days Ago History ~05/31/19 Furosemide [Lasix TAB] 40 mg PO QDAY 06/03/19 12/28/19 3 Days Ago History ~05/31/19 Insulin Lispro [Humalog 100 4 units SQ AC 06/03/19 12/28/19 3 Days Ago History UNITS/ML Kwikpen] ~05/31/19 Levothyroxine [Synthroid] 88 mcg PO QAM 06/03/19 12/28/19 3 Days Ago History ~05/31/19 Metformin HCl [metFORMIN] 1,000 mg PO BID 06/03/19 12/28/19 3 Days Ago History ~05/31/19 Potassium Chloride [K-Dur] 20 meq PO QDAY 06/03/19 12/28/19 3 Days Ago History ~05/31/19 carvediloL [Coreg] 6.25 mg PO BID 06/03/19 12/28/19 3 Days Ago History ~05/31/19 Famotidine [Pepcid] 20 mg PO QDAY #30 tablet 06/06/19 12/28/19 Unknown Rx Insulin NPH/Regular [NovoLIN 70/30] 50 unit SUB-Q BIDDIAB #100 units 06/06/19 12/28/19 Unknown Rx Active Medications: Generic Name Dose Route Start Last Admin Trade Name Freq PRN Reason Stop Dose Admin Acetaminophen 650 mg 12/29/19 09:21 01/03/20 18:31 Tylenol PO 650 mg Q4H PRN Administration Non Cardiac Pain or Temp>100.5 Albuterol/Ipratropium 1 ampul 12/18/19 14:00 01/08/20 07:58 Duoneb *Not For Prn Use* IH 1 ampul TIDRT SHANEL Administration Lipase/Protease/Amylase 1 each 12/19/19 08:29 Erendira Cabrera 10,500 Unit FEEDTUBE PRN PRN For Clogged Feeding Tube Aspirin 81 mg 12/19/19 10:00 01/08/20 09:10 Baby Aspirin PO 81 mg DAILY SHANEL Administration Bisacodyl 10 mg 01/02/20 15:48 01/02/20 18:25 Dulcolax MO 10 mg QDAY PRN Administration Constipation Docusate Sodium 100 mg 01/01/20 22:00 01/08/20 09:11 Colace PO Not Given BID SHANEL Famotidine 20 mg 12/20/19 10:00 01/08/20 09:09 Pepcid PO 20 mg BID SHANEL Administration Fentanyl 50 mcg 12/27/19 16:57 Sublimaze IV Q10MIN PRN ANALGESIA Folic Acid 1 mg 12/19/19 10:00 01/08/20 09:10 Folvite PO 1 mg DAILY SHANEL Administration Heparin Sodium (Porcine) 5,000 unit 12/18/19 22:00 01/08/20 09:10 Heparin SUB-Q 5,000 unit Q12HR SHANEL Administration Hydrocortisone Sodium Succinate 100 mg 01/07/20 14:00 01/08/20 06:28 Solu-Cortef IV 01/12/20 13:59 100 mg Q8HR SHANEL Administration Hydrophilic Ointment 1 applic 12/18/19 12:35 Vaseline Lip Therapy TP Q2HR PRN Dry Lips Fentanyl Citrate 2,000 mcg in 100 mls @ 5.85 mls/hr 12/27/19 17:00 01/08/20 01:23 Fentanyl Drip Premix IV 1 mcg/kg/hr TITR SHANEL 5.85 mls/hr Administration Protocol 1 MCG/KG/HR Norepinephrine 4 mg in 250 mls @ 7.5 mls/hr 12/28/19 15:00 12/31/19 18:12 Levophed Drip 4 Mg/Ns 250 Ml IV 0 mcg/min TITR SHANEL 0 mls/hr Titration Protocol 2 MCG/MIN Vasopressin 20 unit/ Sodium 101 mls @ 9.09 mls/hr 12/30/19 12:30 01/01/20 13:44 Chloride IV 0 units/min TITR SHANEL 0 mls/hr Titration Protocol 0.03 UNITS/MIN Dopamine HCl/Dextrose 800 mg in 250 mls @ 4.388 mls/hr 12/31/19 16:00 01/08/20 09:18 Intropin Drip 800 Mg/D5w 250 Ml IV 0 mcg/kg/min TITR SHANEL 0 mls/hr Titration Protocol 2 MCG/KG/MIN Sodium Chloride 1,000 mls @ 50 mls/hr 01/08/20 12:30 Nacl 0.9% 1000 Ml IV DIRECT SHANEL Insulin Human Lispro 0 unit 12/31/19 14:00 01/08/20 10:37 Humalog SUB-Q 6 unit Q4HR SHANEL Administration Protocol Levothyroxine Sodium 88 mcg 12/19/19 06:00 01/08/20 06:28 Synthroid PO 88 mcg QAM@0600 SHANEL Administration Multi-Ingred Cream/Lotion/Oil/Oint 1 applic 12/18/19 12:35 Artificial Tears Ophth Oint OU Q4HR PRN Dry Eye(s) Polyethylene Glycol 17 gm 01/01/20 22:00 01/07/20 21:59 Miralax 3350 PO 17 gm QHS SHANEL Administration Potassium Chloride 40 meq 12/29/19 10:00 01/08/20 09:09 Potassium Chloride FEEDTUBE 40 meq QDAY SHANEL Administration Simple Syrup 15 ml 12/19/19 08:29 01/06/20 04:58 Simple Syrup FEEDTUBE 15 ml PRN PRN Administration Hypoglycemia Simple Syrup 30 ml 12/19/19 08:29 Simple Syrup FEEDTUBE PRN PRN Hypoglycemia Sodium Bicarbonate 325 mg 12/19/19 08:29 Sodium Bicarbonate FEEDTUBE PRN PRN For Clogged Feeding Tube Sodium Chloride 10 ml 12/18/19 22:00 01/08/20 09:11 Sodium Chloride Flush Syringe 10 Ml IV 10 ml BID SHANEL Administration Sodium Chloride 10 ml 12/18/19 13:31 Sodium Chloride Flush Syringe 10 Ml IV PRN PRN LINE FLUSH
--- NOTE | 2020-01-08 13:19 | Progress Note ---
Assessment and Plan Acute Hypoxemic Respiratory Failure Severe Sepsis with Shock Bilateral Pneumonia PUI COVID-19 Morbid Obesity H/O CHF JOE - continue bowel regimen (abdomen softer) - keep peep at 8 cm H2O re: bibasilar atelectasis - continue to wean vasopressors for MAP > 65 mmHg - prn CXR's & ABG's at this point - no new issues; continue care as below otherwise; - Daily SAT and SBT assessment as tolerated - accuchecks with glycemic control per SSI (While critically ill target blood glucose of 140-180 mg/dL; avoid hypoglycemia) - sedation for target RASS 0 to -1 - continue to wean supplemental oxygen for target O2 sat's > 92% acutely - continue bronchodilators with pulmonary hygiene per RT - VAP bundle addressed - lung protective strategies - wean per pulmonary driven protocols otherwise - continue to avoid benzodiazepine's, reduce the possibility of delirium - adjust AB's per ID rec's - prn analgesia per CPOT score - Maintenance of sleep-wake cycle - continue to avoid benzodiazepine's, reduce the possibility of delirium - continue enteral nutritional support at goal rate as tolerated - G.I. & VTE prophylaxis - PT/OT/ROM exercises - continue mobility protocols for pressure ulcer prophylaxis - repeat COVID-19 test negative - continue aspiration precautions - continue accuchecks with glycemic control per SSI (While critically ill target blood glucose of 140-180 mg/dL; avoid hypoglycemia) - Monitor hemodynamics closely - continue other care per attending / other consultants - discharge planning ongoing concurrently - LTAC evaluation requested .... Re-evaluate in am & prn CONDITION: CRITICAL PROGNOSIS: GUARDED CODE STATUS: FULL CODE The high probability of a clinically significant, sudden or life-threatening de terioration of the [respiratory, cardiovascular, GI & neurologic] system(s) required my full and direct attention, intervention and personal management. The aggregate critical care time was [33] minutes without overlap. Time includes spent on; [x] Data Review and interpretation [x] Patient assessment and monitoring of vital signs [x] Documentation [x] Medication orders and management Subjective Date of service: 01/08/20 Principal diagnosis: Ac. Hypoxemic Resp Failure; Septic Shock; Magdiel. PNA; PUI COVID-19; CHF; JOE Interval history: Patient is seen today for: Acute Hypoxemic Respiratory Failure; Severe Sepsis with Shock; Bilateral Pneumonia; PUI COVID-19; Morbid Obesity; H/O CHF; JOE Seen and examined at bedside; 24hour events reviewed; nursing and respiratory care staff consulted; no adverse overnight events reported to me; resting peac efully in bed; remains on full MVS with peep at 8 and FiO2 down to 40% now; failed bedside SBT though; no emesis or overt aspiration; AMS is persistent; Objective Vital Signs - 12hr 01/08/20 01/08/20 01/08/20 01:30 02:00 02:30 Temperature Pulse Rate 59 L 60 58 L Pulse Rate [ Bilateral] Pulse Rate [ From Monitor] Respiratory 19 24 24 Rate Respiratory Rate [Bilateral ] Blood Pressure 123/74 92/49 95/52 O2 Sat by Pulse 93 93 94 Oximetry 01/08/20 01/08/20 01/08/20 03:00 03:30 04:00 Temperature 98.6 F Pulse Rate 76 62 58 L Pulse Rate [ Bilateral] Pulse Rate [ From Monitor] Respiratory 21 24 24 Rate Respiratory Rate [Bilateral ] Blood Pressure 95/52 120/66 111/70 O2 Sat by Pulse Oximetry 01/08/20 01/08/20 01/08/20 04:14 04:30 04:44 Temperature Pulse Rate 53 L 48 L 55 L Pulse Rate [ Bilateral] Pulse Rate [ 53 L From Monitor] Respiratory 18 24 Rate Respiratory Rate [Bilateral ] Blood Pressure 107/59 103/61 O2 Sat by Pulse 95 94 Oximetry 01/08/20 01/08/20 01/08/20 05:00 05:30 06:00 Temperature Pulse Rate 58 L 61 59 L Pulse Rate [ Bilateral] Pulse Rate [ From Monitor] Respiratory 24 24 21 Rate Respiratory Rate [Bilateral ] Blood Pressure 103/61 109/60 103/63 O2 Sat by Pulse 90 87 90 Oximetry 01/08/20 01/08/20 01/08/20 06:30 07:00 07:30 Temperature Pulse Rate 59 L 59 L 49 L Pulse Rate [ Bilateral] Pulse Rate [ From Monitor] Respiratory 22 24 24 Rate Respiratory Rate [Bilateral ] Blood Pressure 107/57 105/52 109/55 O2 Sat by Pulse 92 92 94 Oximetry 01/08/20 01/08/20 01/08/20 07:58 08:00 08:30 Temperature 98 F Pulse Rate 51 L 47 L Pulse Rate [ 55 L Bilateral] Pulse Rate [ 54 L From Monitor] Respiratory 24 Rate Respiratory 24 Rate [Bilateral ] Blood Pressure 104/56 104/56 112/62 O2 Sat by Pulse 94 94 100 Oximetry 01/08/20 01/08/20 01/08/20 09:00 09:30 10:00 Temperature Pulse Rate 54 L 51 L 50 L Pulse Rate [ Bilateral] Pulse Rate [ From Monitor] Respiratory 24 23 22 Rate Respiratory Rate [Bilateral ] Blood Pressure 112/61 101/56 114/55 O2 Sat by Pulse 99 99 100 Oximetry 01/08/20 01/08/20 01/08/20 10:30 11:00 11:30 Temperature Pulse Rate 54 L 52 L 61 Pulse Rate [ Bilateral] Pulse Rate [ From Monitor] Respiratory 18 20 17 Rate Respiratory Rate [Bilateral ] Blood Pressure 110/62 107/61 121/67 O2 Sat by Pulse 100 100 100 Oximetry 01/08/20 12:00 Temperature 98.2 F Pulse Rate 51 L Pulse Rate [ Bilateral] Pulse Rate [ 51 L From Monitor] Respiratory 23 Rate Respiratory Rate [Bilateral ] Blood Pressure 115/65 O2 Sat by Pulse 100 Oximetry Constitutional: no acute distress, alert, other (elderly obese AAM with mildly increrased respiratory effort at rest on MVS) Eyes: non-icteric ENT: oropharynx moist, other (ETT 24 cm KOLBY) Neck: supple, no lymphadenopathy, no JVD Effort: mildly labored Ascultation: Bilateral: diminished breath sounds, rhonchi, other (diminished bibasilar air entry) Percussion: Bilateral: not dull Cardiovascular: regular rate and rhythm, other (S1,S2) Gastrointestinal: normoactive bowel sounds, soft, non-tender, other (protuberant) Integumentary: rash (stasis dermatyitis) Extremities: no cyanosis, pink and warm, pulses normal, no ischemia or petechiae, edema (trace) Neurologic: normal mental status, non-focal exam, pupils equal and round, CN II- XII normal, motor strength normal and (obeys simple commands) Psychiatric: other (unable to assess re: AQMS) CBC and BMP: 01/08/20 08:03 01/09/20 08:15 ABG, PT/INR, D-dimer: ABG ABG pH 7.414 pH Units (7.350-7.450) 01/08/20 05:27 ABG pCO2 42.3 mm Hg 01/08/20 05:27 ABG pO2 67.8 mm Hg (80.0-90.0) L 01/08/20 05:27 ABG O2 Saturation 93.2 % (95.0-99.0) L 01/08/20 05:27 PT/INR, D-dimer PT 14.0 Sec. (12.2-14.9) 12/18/19 14:45 INR 1.10 (0.87-1.13) 12/18/19 14:45 D-Dimer 534.45 ng/mlDDU (0-234) H 12/18/19 14:45 Abnormal lab findings: Abnormal Labs 12/18/19 12/18/19 12/18/19 12:23 14:45 14:45 WBC RBC Hgb 10.4 L Hct 35.2 L MCV MCH 25 L MCHC 30 L RDW 18.8 H Plt Count Lymph % (Auto) [place] % (Auto) 11.6 H Eos % (Auto) 4.8 H Lymph # [place] # 1.0 H Eos # Seg Neutrophils % Monocytes % (Manual) Monocytes # (Manual) D-Dimer ABG pH ABG pO2 ABG HCO3 ABG O2 Saturation ABG Base Excess ABG Hemoglobin Oxyhemoglobin Sodium Potassium Chloride Carbon Dioxide BUN Creatinine Glucose POC Glucose 328 H Lactic Acid Calcium Magnesium AST ALT Lactate Dehydrogenase Total Creatine Kinase 40 L C-Reactive Protein Albumin Urine WBC (Auto) Urine Total Protein Digoxin Salicylates Acetaminophen 12/18/19 12/18/19 12/18/19 14:45 14:45 14:45 WBC RBC Hgb Hct MCV MCH MCHC RDW Plt Count Lymph % (Auto) [place] % (Auto) Eos % (Auto) Lymph # [place] # Eos # Seg Neutrophils % Monocytes % (Manual) Monocytes # (Manual) D-Dimer 534.45 H ABG pH ABG pO2 ABG HCO3 ABG O2 Saturation ABG Base Excess ABG Hemoglobin Oxyhemoglobin Sodium 156 H Potassium Chloride 112.3 H Carbon Dioxide 31 H BUN 32 H Creatinine Glucose 328 H POC Glucose Lactic Acid Calcium Magnesium AST ALT Lactate Dehydrogenase 235 H Total Creatine Kinase C-Reactive Protein 8.50 H Albumin 3.6 L Urine WBC (Auto) Urine Total Protein Digoxin 0.3 L Salicylates < 0.3 L Acetaminophen 12/18/19 12/18/19 12/18/19 14:45 14:45 16:00 WBC RBC Hgb Hct MCV MCH MCHC RDW Plt Count Lymph % (Auto) [place] % (Auto) Eos % (Auto) Lymph # [place] # Eos # Seg Neutrophils % Monocytes % (Manual) Monocytes # (Manual) D-Dimer ABG pH ABG pO2 69.8 L ABG HCO3 31.8 H ABG O2 Saturation ABG Base Excess 5.4 H ABG Hemoglobin 10.0 L Oxyhemoglobin 92.9 L Sodium Potassium Chloride Carbon Dioxide BUN Creatinine Glucose 314 H POC Glucose Lactic Acid Calcium Magnesium AST ALT Lactate Dehydrogenase 236 H Total Creatine Kinase C-Reactive Protein 8.40 H Albumin Urine WBC (Auto) Urine Total Protein Digoxin Salicylates Acetaminophen < 5.0 L 12/18/19 12/18/19 12/18/19 16:35 18:30 22:56 WBC RBC Hgb Hct MCV MCH MCHC RDW Plt Count Lymph % (Auto) [place] % (Auto) Eos % (Auto) Lymph # [place] # Eos # Seg Neutrophils % Monocytes % (Manual) Monocytes # (Manual) D-Dimer ABG pH ABG pO2 ABG HCO3 ABG O2 Saturation ABG Base Excess ABG Hemoglobin Oxyhemoglobin Sodium Potassium Chloride Carbon Dioxide BUN Creatinine Glucose POC Glucose 310 H 353 H Lactic Acid 2.50 H* Calcium Magnesium AST ALT Lactate Dehydrogenase Total Creatine Kinase C-Reactive Protein Albumin Urine WBC (Auto) Urine Total Protein Digoxin Salicylates Acetaminophen 12/19/19 12/19/19 12/19/19 04:13 04:13 06:00 WBC RBC Hgb 10.0 L Hct 34.2 L MCV MCH 25 L MCHC 29 L RDW 19.0 H Plt Count Lymph % (Auto) [place] % (Auto) 10.1 H Eos % (Auto) Lymph # [place] # 1.1 H Eos # Seg Neutrophils % 71.8 H Monocytes % (Manual) Monocytes # (Manual) D-Dimer ABG pH ABG pO2 186.5 H ABG HCO3 27.8 H ABG O2 Saturation 99.1 H ABG Base Excess ABG Hemoglobin 10.4 L Oxyhemoglobin Sodium 157 H Potassium Chloride 119.1 H Carbon Dioxide BUN 26 H Creatinine Glucose 302 H POC Glucose Lactic Acid Calcium 7.9 L Magnesium AST 85 H ALT 61 H Lactate Dehydrogenase Total Creatine Kinase C-Reactive Protein Albumin 3.0 L Urine WBC (Auto) Urine Total Protein Digoxin Salicylates Acetaminophen 12/19/19 12/19/19 12/19/19 08:30 11:55 16:50 WBC RBC Hgb Hct MCV MCH MCHC RDW Plt Count Lymph % (Auto) [place] % (Auto) Eos % (Auto) Lymph # [place] # Eos # Seg Neutrophils % Monocytes % (Manual) Monocytes # (Manual) D-Dimer ABG pH ABG pO2 ABG HCO3 ABG O2 Saturation ABG Base Excess ABG Hemoglobin Oxyhemoglobin Sodium Potassium Chloride Carbon Dioxide BUN Creatinine Glucose POC Glucose 264 H 251 H Lactic Acid Calcium Magnesium AST ALT Lactate Dehydrogenase Total Creatine Kinase C-Reactive Protein Albumin Urine WBC (Auto) 7.0 H Urine Total Protein Digoxin Salicylates Acetaminophen 12/19/19 12/19/19 12/20/19 17:41 23:42 03:35 WBC RBC Hgb Hct MCV MCH MCHC RDW Plt Count Lymph % (Auto) [place] % (Auto) Eos % (Auto) Lymph # [place] # Eos # Seg Neutrophils % Monocytes % (Manual) Monocytes # (Manual) D-Dimer ABG pH ABG pO2 ABG HCO3 27.7 H ABG O2 Saturation ABG Base Excess ABG Hemoglobin 11.6 L Oxyhemoglobin 94.9 L Sodium Potassium Chloride Carbon Dioxide BUN Creatinine Glucose POC Glucose 180 H 205 H Lactic Acid Calcium Magnesium AST ALT Lactate Dehydrogenase Total Creatine Kinase C-Reactive Protein Albumin Urine WBC (Auto) Urine Total Protein Digoxin Salicylates Acetaminophen 12/20/19 12/20/19 12/20/19 04:45 04:45 05:27 WBC RBC Hgb 9.4 L Hct 31.4 L MCV MCH 25 L MCHC 30 L RDW 19.4 H Plt Count Lymph % (Auto) [place] % (Auto) 10.2 H Eos % (Auto) 6.0 H Lymph # 0.9 L [place] # Eos # Seg Neutrophils % Monocytes % (Manual) Monocytes # (Manual) D-Dimer ABG pH ABG pO2 ABG HCO3 ABG O2 Saturation ABG Base Excess ABG Hemoglobin Oxyhemoglobin Sodium 153 H Potassium Chloride 114.6 H Carbon Dioxide BUN Creatinine Glucose 170 H POC Glucose 188 H Lactic Acid Calcium 7.9 L Magnesium AST ALT Lactate Dehydrogenase Total Creatine Kinase C-Reactive Protein Albumin Urine WBC (Auto) Urine Total Protein Digoxin Salicylates Acetaminophen 12/20/19 12/20/19 12/21/19 12:26 18:20 00:20 WBC RBC Hgb Hct MCV MCH MCHC RDW Plt Count Lymph % (Auto) [place] % (Auto) Eos % (Auto) Lymph # [place] # Eos # Seg Neutrophils % Monocytes % (Manual) Monocytes # (Manual) D-Dimer ABG pH ABG pO2 ABG HCO3 ABG O2 Saturation ABG Base Excess ABG Hemoglobin Oxyhemoglobin Sodium Potassium Chloride Carbon Dioxide BUN Creatinine Glucose POC Glucose 200 H 263 H 218 H Lactic Acid Calcium Magnesium AST ALT Lactate Dehydrogenase Total Creatine Kinase C-Reactive Protein Albumin Urine WBC (Auto) Urine Total Protein Digoxin Salicylates Acetaminophen 12/21/19 12/21/19 12/21/19 04:38 05:26 12:35 WBC RBC Hgb Hct MCV MCH MCHC RDW Plt Count Lymph % (Auto) [place] % (Auto) Eos % (Auto) Lymph # [place] # Eos # Seg Neutrophils % Monocytes % (Manual) Monocytes # (Manual) D-Dimer ABG pH ABG pO2 ABG HCO3 ABG O2 Saturation ABG Base Excess ABG Hemoglobin Oxyhemoglobin Sodium 149 H Potassium 3.5 L Chloride 110.5 H Carbon Dioxide BUN Creatinine Glucose 158 H POC Glucose 193 H 193 H Lactic Acid Calcium Magnesium AST ALT Lactate Dehydrogenase Total Creatine Kinase C-Reactive Protein Albumin Urine WBC (Auto) Urine Total Protein Digoxin Salicylates Acetaminophen 12/21/19 12/22/19 12/22/19 18:29 00:03 05:15 WBC RBC Hgb 10.3 L Hct 34.7 L MCV MCH 25 L MCHC 30 L RDW 19.4 H Plt Count Lymph % (Auto) 9.0 L [place] % (Auto) 12.3 H Eos % (Auto) 5.0 H Lymph # 0.5 L [place] # Eos # Seg Neutrophils % 73.2 H Monocytes % (Manual) Monocytes # (Manual) D-Dimer ABG pH ABG pO2 ABG HCO3 ABG O2 Saturation ABG Base Excess ABG Hemoglobin Oxyhemoglobin Sodium Potassium Chloride Carbon Dioxide BUN Creatinine Glucose POC Glucose 186 H 143 H Lactic Acid Calcium Magnesium AST ALT Lactate Dehydrogenase Total Creatine Kinase C-Reactive Protein Albumin Urine WBC (Auto) Urine Total Protein Digoxin Salicylates Acetaminophen 12/22/19 12/22/19 12/22/19 05:15 06:02 12:13 WBC RBC Hgb Hct MCV MCH MCHC RDW Plt Count Lymph % (Auto) [place] % (Auto) Eos % (Auto) Lymph # [place] # Eos # Seg Neutrophils % Monocytes % (Manual) Monocytes # (Manual) D-Dimer ABG pH ABG pO2 ABG HCO3 ABG O2 Saturation ABG Base Excess ABG Hemoglobin Oxyhemoglobin Sodium 152 H Potassium Chloride 113.5 H Carbon Dioxide BUN Creatinine Glucose 126 H POC Glucose 144 H 159 H Lactic Acid Calcium Magnesium AST ALT Lactate Dehydrogenase Total Creatine Kinase C-Reactive Protein Albumin Urine WBC (Auto) Urine Total Protein Digoxin Salicylates Acetaminophen 12/22/19 12/22/19 12/23/19 18:03 23:50 05:27 WBC RBC Hgb Hct MCV MCH MCHC RDW Plt Count Lymph % (Auto) [place] % (Auto) Eos % (Auto) Lymph # [place] # Eos # Seg Neutrophils % Monocytes % (Manual) Monocytes # (Manual) D-Dimer ABG pH ABG pO2 ABG HCO3 ABG O2 Saturation ABG Base Excess ABG Hemoglobin Oxyhemoglobin Sodium Potassium Chloride Carbon Dioxide BUN Creatinine Glucose POC Glucose 140 H 227 H 185 H Lactic Acid Calcium Magnesium AST ALT Lactate Dehydrogenase Total Creatine Kinase C-Reactive Protein Albumin Urine WBC (Auto) Urine Total Protein Digoxin Salicylates Acetaminophen 12/23/19 12/23/19 12/23/19 12:13 16:05 16:40 WBC RBC Hgb Hct MCV MCH MCHC RDW Plt Count Lymph % (Auto) [place] % (Auto) Eos % (Auto) Lymph # [place] # Eos # Seg Neutrophils % Monocytes % (Manual) Monocytes # (Manual) D-Dimer ABG pH 7.259 L ABG pO2 76.2 L ABG HCO3 30.6 H ABG O2 Saturation 94.6 L ABG Base Excess ABG Hemoglobin 11.5 L Oxyhemoglobin 92.2 L Sodium 163 H* D Potassium 3.4 L Chloride 120.1 H Carbon Dioxide BUN Creatinine Glucose 162 H POC Glucose 132 H Lactic Acid Calcium Magnesium AST ALT Lactate Dehydrogenase Total Creatine Kinase C-Reactive Protein Albumin Urine WBC (Auto) Urine Total Protein Digoxin Salicylates Acetaminophen 12/23/19 12/24/19 12/24/19 17:53 00:48 04:20 WBC RBC Hgb Hct MCV MCH MCHC RDW Plt Count Lymph % (Auto) [place] % (Auto) Eos % (Auto) Lymph # [place] # Eos # Seg Neutrophils % Monocytes % (Manual) Monocytes # (Manual) D-Dimer ABG pH ABG pO2 ABG HCO3 30.4 H ABG O2 Saturation ABG Base Excess 3.9 H ABG Hemoglobin 10.3 L Oxyhemoglobin 94.4 L Sodium Potassium Chloride Carbon Dioxide BUN Creatinine Glucose POC Glucose 180 H 174 H Lactic Acid Calcium Magnesium AST ALT Lactate Dehydrogenase Total Creatine Kinase C-Reactive Protein Albumin Urine WBC (Auto) Urine Total Protein Digoxin Salicylates Acetaminophen 12/24/19 12/24/19 12/24/19 04:53 04:53 11:50 WBC RBC Hgb 9.7 L Hct 33.2 L MCV MCH 25 L MCHC 29 L RDW 20.1 H Plt Count Lymph % (Auto) [place] % (Auto) Eos % (Auto) Lymph # [place] # Eos # Seg Neutrophils % Monocytes % (Manual) 15.0 H Monocytes # (Manual) 0.9 H D-Dimer ABG pH ABG pO2 ABG HCO3 ABG O2 Saturation ABG Base Excess ABG Hemoglobin Oxyhemoglobin Sodium 163 H* Potassium 3.2 L Chloride 122.6 H Carbon Dioxide BUN Creatinine Glucose 168 H POC Glucose 190 H Lactic Acid Calcium Magnesium AST ALT Lactate Dehydrogenase Total Creatine Kinase C-Reactive Protein Albumin Urine WBC (Auto) Urine Total Protein Digoxin Salicylates Acetaminophen 12/24/19 12/24/19 12/24/19 15:00 16:28 21:15 WBC RBC Hgb Hct MCV MCH MCHC RDW Plt Count Lymph % (Auto) [place] % (Auto) Eos % (Auto) Lymph # [place] # Eos # Seg Neutrophils % Monocytes % (Manual) Monocytes # (Manual) D-Dimer ABG pH ABG pO2 ABG HCO3 ABG O2 Saturation ABG Base Excess ABG Hemoglobin Oxyhemoglobin Sodium 165 H* D 163 H* Potassium Chloride Carbon Dioxide BUN Creatinine Glucose POC Glucose 160 H Lactic Acid Calcium Magnesium AST ALT Lactate Dehydrogenase Total Creatine Kinase C-Reactive Protein Albumin Urine WBC (Auto) Urine Total Protein Digoxin Salicylates Acetaminophen 12/25/19 12/25/19 12/25/19 00:31 05:38 05:46 WBC RBC Hgb 9.7 L Hct 32.5 L MCV MCH 25 L MCHC 30 L RDW 19.4 H Plt Count Lymph % (Auto) [place] % (Auto) Eos % (Auto) Lymph # [place] # Eos # Seg Neutrophils % Monocytes % (Manual) Monocytes # (Manual) D-Dimer ABG pH ABG pO2 ABG HCO3 ABG O2 Saturation ABG Base Excess ABG Hemoglobin Oxyhemoglobin Sodium Potassium Chloride Carbon Dioxide BUN Creatinine Glucose POC Glucose 182 H 194 H Lactic Acid Calcium Magnesium AST ALT Lactate Dehydrogenase Total Creatine Kinase C-Reactive Protein Albumin Urine WBC (Auto) Urine Total Protein Digoxin Salicylates Acetaminophen 12/25/19 12/25/19 12/25/19 05:46 11:35 11:38 WBC RBC Hgb Hct MCV MCH MCHC RDW Plt Count Lymph % (Auto) [place] % (Auto) Eos % (Auto) Lymph # [place] # Eos # Seg Neutrophils % Monocytes % (Manual) Monocytes # (Manual) D-Dimer ABG pH 7.330 L ABG pO2 65.7 L ABG HCO3 32.6 H ABG O2 Saturation 92.5 L ABG Base Excess 5.3 H ABG Hemoglobin 10.4 L Oxyhemoglobin 90.0 L Sodium 166 H* Potassium 2.9 L* Chloride 124.5 H Carbon Dioxide BUN Creatinine Glucose 190 H POC Glucose 192 H Lactic Acid Calcium Magnesium AST ALT Lactate Dehydrogenase Total Creatine Kinase C-Reactive Protein Albumin Urine WBC (Auto) Urine Total Protein Digoxin Salicylates Acetaminophen 12/25/19 12/25/19 12/25/19 13:01 16:45 17:20 WBC RBC Hgb Hct MCV MCH MCHC RDW Plt Count Lymph % (Auto) [place] % (Auto) Eos % (Auto) Lymph # [place] # Eos # Seg Neutrophils % Monocytes % (Manual) Monocytes # (Manual) D-Dimer ABG pH 7.296 L ABG pO2 101.5 H ABG HCO3 33.2 H ABG O2 Saturation ABG Base Excess 5.3 H ABG Hemoglobin 9.6 L Oxyhemoglobin 94.6 L Sodium 174 H* Potassium Chloride Carbon Dioxide BUN Creatinine Glucose POC Glucose Lactic Acid Calcium Magnesium AST ALT Lactate Dehydrogenase Total Creatine Kinase C-Reactive Protein Albumin Urine WBC (Auto) Urine Total Protein < 4 L Digoxin Salicylates Acetaminophen 12/25/19 12/25/19 12/26/19 17:48 18:50 00:43 WBC RBC Hgb Hct MCV MCH MCHC RDW Plt Count Lymph % (Auto) [place] % (Auto) Eos % (Auto) Lymph # [place] # Eos # Seg Neutrophils % Monocytes % (Manual) Monocytes # (Manual) D-Dimer ABG pH ABG pO2 ABG HCO3 ABG O2 Saturation ABG Base Excess ABG Hemoglobin Oxyhemoglobin Sodium 166 H* 164 H* Potassium Chloride 127.3 H Carbon Dioxide BUN Creatinine Glucose 220 H POC Glucose 252 H Lactic Acid Calcium Magnesium AST ALT Lactate Dehydrogenase Total Creatine Kinase C-Reactive Protein Albumin Urine WBC (Auto) Urine Total Protein Digoxin Salicylates Acetaminophen 12/26/19 12/26/19 12/26/19 05:31 08:07 08:07 WBC 4.3 L RBC Hgb 9.6 L Hct 32.1 L MCV MCH 26 L MCHC 30 L RDW 20.5 H Plt Count Lymph % (Auto) [place] % (Auto) Eos % (Auto) Lymph # [place] # Eos # Seg Neutrophils % Monocytes % (Manual) Monocytes # (Manual) D-Dimer ABG pH ABG pO2 ABG HCO3 ABG O2 Saturation ABG Base Excess ABG Hemoglobin Oxyhemoglobin Sodium 162 H* Potassium Chloride 122.1 H Carbon Dioxide BUN Creatinine Glucose 247 H POC Glucose 187 H Lactic Acid Calcium Magnesium AST ALT Lactate Dehydrogenase Total Creatine Kinase C-Reactive Protein Albumin Urine WBC (Auto) Urine Total Protein Digoxin Salicylates Acetaminophen 12/26/19 12/26/19 12/26/19 08:07 12:20 16:25 WBC RBC Hgb Hct MCV MCH MCHC RDW Plt Count Lymph % (Auto) [place] % (Auto) Eos % (Auto) Lymph # [place] # Eos # Seg Neutrophils % Monocytes % (Manual) Monocytes # (Manual) D-Dimer ABG pH 7.290 L ABG pO2 73.2 L ABG HCO3 33.2 H ABG O2 Saturation 94.9 L ABG Base Excess 5.2 H ABG Hemoglobin 10.0 L Oxyhemoglobin 92.5 L Sodium 159 H Potassium Chloride Carbon Dioxide BUN Creatinine Glucose POC Glucose 234 H Lactic Acid Calcium Magnesium AST ALT Lactate Dehydrogenase Total Creatine Kinase C-Reactive Protein Albumin Urine WBC (Auto) Urine Total Protein Digoxin Salicylates Acetaminophen 12/26/19 12/26/19 12/26/19 17:33 22:35 23:30 WBC RBC Hgb Hct MCV MCH MCHC RDW Plt Count Lymph % (Auto) [place] % (Auto) Eos % (Auto) Lymph # [place] # Eos # Seg Neutrophils % Monocytes % (Manual) Monocytes # (Manual) D-Dimer ABG pH ABG pO2 ABG HCO3 ABG O2 Saturation ABG Base Excess ABG Hemoglobin Oxyhemoglobin Sodium Potassium Chloride Carbon Dioxide BUN Creatinine Glucose POC Glucose 244 H 208 H 287 H Lactic Acid Calcium Magnesium AST ALT Lactate Dehydrogenase Total Creatine Kinase C-Reactive Protein Albumin Urine WBC (Auto) Urine Total Protein Digoxin Salicylates Acetaminophen 12/27/19 12/27/19 12/27/19 03:48 03:48 03:48 WBC RBC Hgb 10.1 L Hct 35.4 L MCV MCH 25 L MCHC 29 L RDW 20.1 H Plt Count Lymph % (Auto) [place] % (Auto) Eos % (Auto) Lymph # [place] # Eos # Seg Neutrophils % Monocytes % (Manual) Monocytes # (Manual) D-Dimer ABG pH ABG pO2 ABG HCO3 ABG O2 Saturation ABG Base Excess ABG Hemoglobin Oxyhemoglobin Sodium 160 H Potassium Chloride 118.8 H Carbon Dioxide 33 H BUN Creatinine Glucose 217 H POC Glucose Lactic Acid Calcium Magnesium 2.70 H AST ALT Lactate Dehydrogenase Total Creatine Kinase C-Reactive Protein Albumin Urine WBC (Auto) Urine Total Protein Digoxin Salicylates Acetaminophen 12/27/19 12/27/19 12/27/19 05:50 11:58 16:05 WBC RBC Hgb Hct MCV MCH MCHC RDW Plt Count Lymph % (Auto) [place] % (Auto) Eos % (Auto) Lymph # [place] # Eos # Seg Neutrophils % Monocytes % (Manual) Monocytes # (Manual) D-Dimer ABG pH 7.180 L* ABG pO2 73.6 L ABG HCO3 34.8 H ABG O2 Saturation 92.7 L ABG Base Excess 3.8 H ABG Hemoglobin 12.0 L Oxyhemoglobin 90.2 L Sodium Potassium Chloride Carbon Dioxide BUN Creatinine Glucose POC Glucose 224 H 218 H Lactic Acid Calcium Magnesium AST ALT Lactate Dehydrogenase Total Creatine Kinase C-Reactive Protein Albumin Urine WBC (Auto) Urine Total Protein Digoxin Salicylates Acetaminophen 12/27/19 12/27/19 12/27/19 18:05 19:50 21:53 WBC RBC Hgb Hct MCV MCH MCHC RDW Plt Count Lymph % (Auto) [place] % (Auto) Eos % (Auto) Lymph # [place] # Eos # Seg Neutrophils % Monocytes % (Manual) Monocytes # (Manual) D-Dimer ABG pH 7.328 L ABG pO2 49.9 L ABG HCO3 33.3 H ABG O2 Saturation 87.1 L ABG Base Excess 5.7 H ABG Hemoglobin 11.2 L Oxyhemoglobin 84.8 L Sodium Potassium Chloride Carbon Dioxide BUN Creatinine Glucose POC Glucose 214 H 178 H Lactic Acid Calcium Magnesium AST ALT Lactate Dehydrogenase Total Creatine Kinase C-Reactive Protein Albumin Urine WBC (Auto) Urine Total Protein Digoxin Salicylates Acetaminophen 12/28/19 12/28/19 12/28/19 00:42 04:37 04:37 WBC RBC Hgb 9.8 L Hct 33.5 L MCV MCH 25 L MCHC 29 L RDW 21.1 H Plt Count Lymph % (Auto) [place] % (Auto) Eos % (Auto) Lymph # [place] # Eos # Seg Neutrophils % Monocytes % (Manual) Monocytes # (Manual) D-Dimer ABG pH ABG pO2 ABG HCO3 ABG O2 Saturation ABG Base Excess ABG Hemoglobin Oxyhemoglobin Sodium 157 H Potassium 3.4 L Chloride 117.5 H Carbon Dioxide BUN Creatinine Glucose 193 H POC Glucose 157 H Lactic Acid Calcium Magnesium AST ALT Lactate Dehydrogenase Total Creatine Kinase C-Reactive Protein Albumin Urine WBC (Auto) Urine Total Protein Digoxin Salicylates Acetaminophen 12/28/19 12/28/19 12/28/19 04:52 05:19 12:05 WBC RBC Hgb Hct MCV MCH MCHC RDW Plt Count Lymph % (Auto) [place] % (Auto) Eos % (Auto) Lymph # [place] # Eos # Seg Neutrophils % Monocytes % (Manual) Monocytes # (Manual) D-Dimer ABG pH ABG pO2 51.7 L ABG HCO3 28.7 H ABG O2 Saturation 89.9 L ABG Base Excess 4.1 H ABG Hemoglobin 9.7 L Oxyhemoglobin 87.7 L Sodium Potassium Chloride Carbon Dioxide BUN Creatinine Glucose POC Glucose 202 H 248 H Lactic Acid Calcium Magnesium AST ALT Lactate Dehydrogenase Total Creatine Kinase C-Reactive Protein Albumin Urine WBC (Auto) Urine Total Protein Digoxin Salicylates Acetaminophen 12/28/19 12/28/19 12/28/19 18:11 21:15 23:22 WBC RBC Hgb Hct MCV MCH MCHC RDW Plt Count Lymph % (Auto) [place] % (Auto) Eos % (Auto) Lymph # [place] # Eos # Seg Neutrophils % Monocytes % (Manual) Monocytes # (Manual) D-Dimer ABG pH ABG pO2 ABG HCO3 ABG O2 Saturation ABG Base Excess ABG Hemoglobin Oxyhemoglobin Sodium Potassium Chloride Carbon Dioxide BUN Creatinine Glucose POC Glucose 226 H 217 H 227 H Lactic Acid Calcium Magnesium AST ALT Lactate Dehydrogenase Total Creatine Kinase C-Reactive Protein Albumin Urine WBC (Auto) Urine Total Protein Digoxin Salicylates Acetaminophen 12/29/19 12/29/19 12/29/19 04:09 04:59 04:59 WBC 11.1 H RBC Hgb 9.3 L Hct 31.1 L MCV 81 L MCH 24 L MCHC 30 L RDW 19.9 H Plt Count Lymph % (Auto) [place] % (Auto) Eos % (Auto) Lymph # [place] # Eos # Seg Neutrophils % Monocytes % (Manual) Monocytes # (Manual) D-Dimer ABG pH 7.473 H ABG pO2 126.1 H ABG HCO3 29.2 H ABG O2 Saturation ABG Base Excess 5.1 H ABG Hemoglobin 8.4 L Oxyhemoglobin Sodium 157 H Potassium 3.2 L Chloride 118.2 H Carbon Dioxide BUN Creatinine 1.7 H Glucose 229 H POC Glucose Lactic Acid Calcium Magnesium AST ALT Lactate Dehydrogenase Total Creatine Kinase C-Reactive Protein Albumin Urine WBC (Auto) Urine Total Protein Digoxin Salicylates Acetaminophen 12/29/19 12/29/19 12/29/19 05:15 12:13 17:59 WBC RBC Hgb Hct MCV MCH MCHC RDW Plt Count Lymph % (Auto) [place] % (Auto) Eos % (Auto) Lymph # [place] # Eos # Seg Neutrophils % Monocytes % (Manual) Monocytes # (Manual) D-Dimer ABG pH ABG pO2 ABG HCO3 ABG O2 Saturation ABG Base Excess ABG Hemoglobin Oxyhemoglobin Sodium Potassium Chloride Carbon Dioxide BUN Creatinine Glucose POC Glucose 221 H 392 H 365 H Lactic Acid Calcium Magnesium AST ALT Lactate Dehydrogenase Total Creatine Kinase C-Reactive Protein Albumin Urine WBC (Auto) Urine Total Protein Digoxin Salicylates Acetaminophen 12/29/19 12/29/19 12/30/19 20:25 23:38 04:45 WBC RBC Hgb Hct MCV MCH MCHC RDW Plt Count Lymph % (Auto) [place] % (Auto) Eos % (Auto) Lymph # [place] # Eos # Seg Neutrophils % Monocytes % (Manual) Monocytes # (Manual) D-Dimer ABG pH 7.261 L 7.343 L ABG pO2 60.3 L 54.3 L ABG HCO3 32.1 H 30.9 H ABG O2 Saturation 87.6 L 88.3 L ABG Base Excess 3.7 H 4.0 H ABG Hemoglobin 9.7 L 11.6 L Oxyhemoglobin 85.2 L 86.0 L Sodium Potassium Chloride Carbon Dioxide BUN Creatinine Glucose POC Glucose 402 H Lactic Acid Calcium Magnesium AST ALT Lactate Dehydrogenase Total Creatine Kinase C-Reactive Protein Albumin Urine WBC (Auto) Urine Total Protein Digoxin Salicylates Acetaminophen 12/30/19 12/30/19 12/30/19 05:06 05:06 05:06 WBC 11.7 H RBC Hgb 9.4 L Hct 32.4 L MCV 83 L MCH 24 L MCHC 29 L RDW 20.2 H Plt Count Lymph % (Auto) [place] % (Auto) Eos % (Auto) Lymph # [place] # Eos # Seg Neutrophils % Monocytes % (Manual) Monocytes # (Manual) D-Dimer ABG pH ABG pO2 ABG HCO3 ABG O2 Saturation ABG Base Excess ABG Hemoglobin Oxyhemoglobin Sodium 159 H Potassium 3.2 L Chloride 120.1 H Carbon Dioxide 31 H BUN Creatinine 1.9 H Glucose 404 H POC Glucose Lactic Acid Calcium Magnesium 2.60 H AST ALT Lactate Dehydrogenase Total Creatine Kinase C-Reactive Protein Albumin Urine WBC (Auto) Urine Total Protein Digoxin Salicylates Acetaminophen 12/30/19 12/30/19 12/30/19 06:26 12:29 13:44 WBC RBC Hgb Hct MCV MCH MCHC RDW Plt Count Lymph % (Auto) [place] % (Auto) Eos % (Auto) Lymph # [place] # Eos # Seg Neutrophils % Monocytes % (Manual) Monocytes # (Manual) D-Dimer ABG pH ABG pO2 ABG HCO3 ABG O2 Saturation ABG Base Excess ABG Hemoglobin Oxyhemoglobin Sodium Potassium Chloride Carbon Dioxide BUN Creatinine Glucose POC Glucose 399 H 469 H > 500 H Lactic Acid Calcium Magnesium AST ALT Lactate Dehydrogenase Total Creatine Kinase C-Reactive Protein Albumin Urine WBC (Auto) Urine Total Protein Digoxin Salicylates Acetaminophen 12/30/19 12/30/19 12/30/19 13:51 16:32 18:05 WBC RBC Hgb Hct MCV MCH MCHC RDW Plt Count Lymph % (Auto) [place] % (Auto) Eos % (Auto) Lymph # [place] # Eos # Seg Neutrophils % Monocytes % (Manual) Monocytes # (Manual) D-Dimer ABG pH ABG pO2 ABG HCO3 ABG O2 Saturation ABG Base Excess ABG Hemoglobin Oxyhemoglobin Sodium Potassium Chloride Carbon Dioxide BUN Creatinine Glucose POC Glucose > 500 H 445 H 429 H Lactic Acid Calcium Magnesium AST ALT Lactate Dehydrogenase Total Creatine Kinase C-Reactive Protein Albumin Urine WBC (Auto) Urine Total Protein Digoxin Salicylates Acetaminophen 12/30/19 12/30/19 12/31/19 21:42 Unknown 00:00 WBC RBC Hgb Hct MCV MCH MCHC RDW Plt Count Lymph % (Auto) [place] % (Auto) Eos % (Auto) Lymph # [place] # Eos # Seg Neutrophils % Monocytes % (Manual) Monocytes # (Manual) D-Dimer ABG pH ABG pO2 ABG HCO3 ABG O2 Saturation ABG Base Excess ABG Hemoglobin Oxyhemoglobin Sodium Potassium Chloride Carbon Dioxide BUN Creatinine Glucose 498 H POC Glucose 371 H 452 H Lactic Acid Calcium Magnesium AST ALT Lactate Dehydrogenase Total Creatine Kinase C-Reactive Protein Albumin Urine WBC (Auto) Urine Total Protein Digoxin Salicylates Acetaminophen 12/31/19 12/31/19 12/31/19 04:31 05:42 08:01 WBC RBC Hgb Hct MCV MCH MCHC RDW Plt Count Lymph % (Auto) [place] % (Auto) Eos % (Auto) Lymph # [place] # Eos # Seg Neutrophils % Monocytes % (Manual) Monocytes # (Manual) D-Dimer ABG pH 7.251 L ABG pO2 62.4 L ABG HCO3 31.1 H ABG O2 Saturation 88.7 L ABG Base Excess ABG Hemoglobin 8.7 L Oxyhemoglobin 86.4 L Sodium Potassium Chloride Carbon Dioxide BUN Creatinine Glucose POC Glucose 443 H 443 H Lactic Acid Calcium Magnesium AST ALT Lactate Dehydrogenase Total Creatine Kinase C-Reactive Protein Albumin Urine WBC (Auto) Urine Total Protein Digoxin Salicylates Acetaminophen 12/31/19 12/31/19 12/31/19 09:08 10:00 11:50 WBC RBC Hgb Hct MCV MCH MCHC RDW Plt Count Lymph % (Auto) [place] % (Auto) Eos % (Auto) Lymph # [place] # Eos # Seg Neutrophils % Monocytes % (Manual) Monocytes # (Manual) D-Dimer ABG pH 7.325 L ABG pO2 97.2 H ABG HCO3 30.1 H ABG O2 Saturation ABG Base Excess 3.4 H ABG Hemoglobin 8.3 L Oxyhemoglobin 94.7 L Sodium 151 H D Potassium 3.2 L Chloride 113.0 H Carbon Dioxide BUN 23 H Creatinine 1.8 H Glucose 373 H POC Glucose 465 H Lactic Acid Calcium Magnesium AST ALT Lactate Dehydrogenase Total Creatine Kinase C-Reactive Protein Albumin Urine WBC (Auto) Urine Total Protein Digoxin Salicylates Acetaminophen 12/31/19 12/31/19 12/31/19 12:25 13:33 18:30 WBC RBC Hgb Hct MCV MCH MCHC RDW Plt Count Lymph % (Auto) [place] % (Auto) Eos % (Auto) Lymph # [place] # Eos # Seg Neutrophils % Monocytes % (Manual) Monocytes # (Manual) D-Dimer ABG pH ABG pO2 ABG HCO3 ABG O2 Saturation ABG Base Excess ABG Hemoglobin Oxyhemoglobin Sodium Potassium Chloride Carbon Dioxide BUN Creatinine Glucose POC Glucose 379 H 311 H 349 H Lactic Acid Calcium Magnesium AST ALT Lactate Dehydrogenase Total Creatine Kinase C-Reactive Protein Albumin Urine WBC (Auto) Urine Total Protein Digoxin Salicylates Acetaminophen 12/31/19 12/31/19 01/01/20 22:29 23:30 02:58 WBC RBC Hgb Hct MCV MCH MCHC RDW Plt Count Lymph % (Auto) [place] % (Auto) Eos % (Auto) Lymph # [place] # Eos # Seg Neutrophils % Monocytes % (Manual) Monocytes # (Manual) D-Dimer ABG pH ABG pO2 ABG HCO3 ABG O2 Saturation ABG Base Excess ABG Hemoglobin Oxyhemoglobin Sodium Potassium Chloride Carbon Dioxide BUN Creatinine Glucose POC Glucose 256 H 266 H 248 H Lactic Acid Calcium Magnesium AST ALT Lactate Dehydrogenase Total Creatine Kinase C-Reactive Protein Albumin Urine WBC (Auto) Urine Total Protein Digoxin Salicylates Acetaminophen 01/01/20 01/01/20 01/01/20 04:19 06:56 10:52 WBC RBC Hgb Hct MCV MCH MCHC RDW Plt Count Lymph % (Auto) [place] % (Auto) Eos % (Auto) Lymph # [place] # Eos # Seg Neutrophils % Monocytes % (Manual) Monocytes # (Manual) D-Dimer ABG pH ABG pO2 90.7 H ABG HCO3 29.1 H ABG O2 Saturation ABG Base Excess 3.8 H ABG Hemoglobin 8.1 L Oxyhemoglobin 94.5 L Sodium Potassium Chloride Carbon Dioxide BUN Creatinine Glucose POC Glucose 303 H 244 H Lactic Acid Calcium Magnesium AST ALT Lactate Dehydrogenase Total Creatine Kinase C-Reactive Protein Albumin Urine WBC (Auto) Urine Total Protein Digoxin Salicylates Acetaminophen 01/01/20 01/01/20 01/01/20 13:39 14:49 18:42 WBC RBC Hgb Hct MCV MCH MCHC RDW Plt Count Lymph % (Auto) [place] % (Auto) Eos % (Auto) Lymph # [place] # Eos # Seg Neutrophils % Monocytes % (Manual) Monocytes # (Manual) D-Dimer ABG pH ABG pO2 ABG HCO3 ABG O2 Saturation ABG Base Excess ABG Hemoglobin Oxyhemoglobin Sodium 147 H Potassium Chloride 107.1 H Carbon Dioxide BUN 28 H Creatinine Glucose 207 H POC Glucose 263 H 188 H Lactic Acid Calcium Magnesium AST ALT Lactate Dehydrogenase Total Creatine Kinase C-Reactive Protein Albumin Urine WBC (Auto) Urine Total Protein Digoxin Salicylates Acetaminophen 01/02/20 01/02/20 01/02/20 02:22 03:58 05:00 WBC RBC 3.31 L Hgb 8.0 L Hct 26.9 L MCV 81 L MCH 24 L MCHC 30 L RDW 19.4 H Plt Count Lymph % (Auto) [place] % (Auto) 9.4 H Eos % (Auto) 11.2 H Lymph # [place] # Eos # 0.8 H Seg Neutrophils % Monocytes % (Manual) Monocytes # (Manual) D-Dimer ABG pH ABG pO2 63.0 L ABG HCO3 31.6 H ABG O2 Saturation 91.8 L ABG Base Excess 5.5 H ABG Hemoglobin 8.6 L Oxyhemoglobin 89.6 L Sodium Potassium Chloride Carbon Dioxide BUN Creatinine Glucose POC Glucose 196 H Lactic Acid Calcium Magnesium AST ALT Lactate Dehydrogenase Total Creatine Kinase C-Reactive Protein Albumin Urine WBC (Auto) Urine Total Protein Digoxin Salicylates Acetaminophen 01/02/20 01/02/20 01/02/20 05:40 10:26 13:57 WBC RBC Hgb Hct MCV MCH MCHC RDW Plt Count Lymph % (Auto) [place] % (Auto) Eos % (Auto) Lymph # [place] # Eos # Seg Neutrophils % Monocytes % (Manual) Monocytes # (Manual) D-Dimer ABG pH ABG pO2 ABG HCO3 ABG O2 Saturation ABG Base Excess ABG Hemoglobin Oxyhemoglobin Sodium Potassium Chloride Carbon Dioxide BUN Creatinine Glucose POC Glucose 189 H 157 H 178 H Lactic Acid Calcium Magnesium AST ALT Lactate Dehydrogenase Total Creatine Kinase C-Reactive Protein Albumin Urine WBC (Auto) Urine Total Protein Digoxin Salicylates Acetaminophen 01/02/20 01/03/20 01/03/20 21:27 03:12 05:26 WBC RBC Hgb Hct MCV MCH MCHC RDW Plt Count Lymph % (Auto) [place] % (Auto) Eos % (Auto) Lymph # [place] # Eos # Seg Neutrophils % Monocytes % (Manual) Monocytes # (Manual) D-Dimer ABG pH 7.473 H ABG pO2 109.6 H ABG HCO3 30.4 H ABG O2 Saturation ABG Base Excess 6.2 H ABG Hemoglobin 9.9 L Oxyhemoglobin Sodium Potassium Chloride Carbon Dioxide BUN Creatinine Glucose POC Glucose 131 H 133 H Lactic Acid Calcium Magnesium AST ALT Lactate Dehydrogenase Total Creatine Kinase C-Reactive Protein Albumin Urine WBC (Auto) Urine Total Protein Digoxin Salicylates Acetaminophen 01/03/20 01/03/20 01/03/20 05:40 05:40 15:01 WBC RBC 3.45 L Hgb 8.3 L Hct 27.3 L MCV 79 L MCH 24 L MCHC 30 L RDW 19.3 H Plt Count Lymph % (Auto) [place] % (Auto) Eos % (Auto) Lymph # [place] # Eos # Seg Neutrophils % Monocytes % (Manual) Monocytes # (Manual) D-Dimer ABG pH ABG pO2 ABG HCO3 ABG O2 Saturation ABG Base Excess ABG Hemoglobin Oxyhemoglobin Sodium 151 H Potassium Chloride 111.8 H Carbon Dioxide 31 H BUN 37 H Creatinine 1.8 H Glucose 187 H POC Glucose 164 H Lactic Acid Calcium Magnesium AST ALT Lactate Dehydrogenase Total Creatine Kinase C-Reactive Protein Albumin Urine WBC (Auto) Urine Total Protein Digoxin Salicylates Acetaminophen 01/03/20 01/03/20 01/04/20 18:15 22:45 02:11 WBC RBC Hgb Hct MCV MCH MCHC RDW Plt Count Lymph % (Auto) [place] % (Auto) Eos % (Auto) Lymph # [place] # Eos # Seg Neutrophils % Monocytes % (Manual) Monocytes # (Manual) D-Dimer ABG pH ABG pO2 ABG HCO3 ABG O2 Saturation ABG Base Excess ABG Hemoglobin Oxyhemoglobin Sodium Potassium Chloride Carbon Dioxide BUN Creatinine Glucose POC Glucose 184 H 176 H 206 H Lactic Acid Calcium Magnesium AST ALT Lactate Dehydrogenase Total Creatine Kinase C-Reactive Protein Albumin Urine WBC (Auto) Urine Total Protein Digoxin Salicylates Acetaminophen 01/04/20 01/04/20 01/04/20 03:16 05:15 10:53 WBC RBC Hgb Hct MCV MCH MCHC RDW Plt Count Lymph % (Auto) [place] % (Auto) Eos % (Auto) Lymph # [place] # Eos # Seg Neutrophils % Monocytes % (Manual) Monocytes # (Manual) D-Dimer ABG pH 7.282 L ABG pO2 73.2 L ABG HCO3 ABG O2 Saturation 94.5 L ABG Base Excess -6.4 L ABG Hemoglobin 10.9 L Oxyhemoglobin 92.1 L Sodium Potassium Chloride Carbon Dioxide BUN Creatinine Glucose POC Glucose 139 H 224 H Lactic Acid Calcium Magnesium AST ALT Lactate Dehydrogenase Total Creatine Kinase C-Reactive Protein Albumin Urine WBC (Auto) Urine Total Protein Digoxin Salicylates Acetaminophen 01/04/20 01/04/20 01/04/20 15:47 18:05 22:07 WBC RBC Hgb Hct MCV MCH MCHC RDW Plt Count Lymph % (Auto) [place] % (Auto) Eos % (Auto) Lymph # [place] # Eos # Seg Neutrophils % Monocytes % (Manual) Monocytes # (Manual) D-Dimer ABG pH ABG pO2 ABG HCO3 ABG O2 Saturation ABG Base Excess ABG Hemoglobin Oxyhemoglobin Sodium Potassium Chloride Carbon Dioxide BUN Creatinine Glucose POC Glucose 135 H 117 H 108 H Lactic Acid Calcium Magnesium AST ALT Lactate Dehydrogenase Total Creatine Kinase C-Reactive Protein Albumin Urine WBC (Auto) Urine Total Protein Digoxin Salicylates Acetaminophen 01/04/20 01/04/20 01/05/20 Unknown Unknown 02:04 WBC RBC 3.46 L Hgb 8.2 L Hct 27.8 L MCV 80 L MCH 24 L MCHC 30 L RDW 19.7 H Plt Count Lymph % (Auto) [place] % (Auto) Eos % (Auto) Lymph # [place] # Eos # Seg Neutrophils % Monocytes % (Manual) Monocytes # (Manual) D-Dimer ABG pH ABG pO2 ABG HCO3 ABG O2 Saturation ABG Base Excess ABG Hemoglobin Oxyhemoglobin Sodium 150 H Potassium Chloride 110 H Carbon Dioxide 32 H BUN 32 H Creatinine Glucose 309 H POC Glucose 140 H Lactic Acid Calcium Magnesium AST ALT Lactate Dehydrogenase Total Creatine Kinase C-Reactive Protein Albumin Urine WBC (Auto) Urine Total Protein Digoxin Salicylates Acetaminophen 01/05/20 01/05/20 01/05/20 03:31 03:36 03:36 WBC RBC 3.46 L Hgb 8.4 L Hct 26.9 L MCV 78 L MCH 24 L MCHC 31 L RDW 19.0 H Plt Count Lymph % (Auto) [place] % (Auto) Eos % (Auto) Lymph # [place] # Eos # Seg Neutrophils % Monocytes % (Manual) Monocytes # (Manual) D-Dimer ABG pH 7.454 H ABG pO2 113.0 H ABG HCO3 30.5 H ABG O2 Saturation ABG Base Excess 6.0 H ABG Hemoglobin 8.5 L Oxyhemoglobin Sodium 150 H Potassium Chloride 110.3 H Carbon Dioxide BUN 30 H Creatinine Glucose 148 H POC Glucose Lactic Acid Calcium Magnesium AST ALT Lactate Dehydrogenase Total Creatine Kinase C-Reactive Protein Albumin Urine WBC (Auto) Urine Total Protein Digoxin Salicylates Acetaminophen 01/05/20 01/05/20 01/05/20 05:21 09:56 11:45 WBC RBC Hgb Hct MCV MCH MCHC RDW Plt Count Lymph % (Auto) [place] % (Auto) Eos % (Auto) Lymph # [place] # Eos # Seg Neutrophils % Monocytes % (Manual) Monocytes # (Manual) D-Dimer ABG pH ABG pO2 ABG HCO3 ABG O2 Saturation ABG Base Excess ABG Hemoglobin Oxyhemoglobin Sodium Potassium Chloride Carbon Dioxide BUN Creatinine Glucose POC Glucose 142 H 129 H 174 H Lactic Acid Calcium Magnesium AST ALT Lactate Dehydrogenase Total Creatine Kinase C-Reactive Protein Albumin Urine WBC (Auto) Urine Total Protein Digoxin Salicylates Acetaminophen 01/05/20 01/05/20 01/05/20 13:30 14:00 17:41 WBC RBC Hgb Hct MCV MCH MCHC RDW Plt Count Lymph % (Auto) [place] % (Auto) Eos % (Auto) Lymph # [place] # Eos # Seg Neutrophils % Monocytes % (Manual) Monocytes # (Manual) D-Dimer ABG pH ABG pO2 ABG HCO3 ABG O2 Saturation ABG Base Excess ABG Hemoglobin Oxyhemoglobin Sodium Potassium Chloride Carbon Dioxide BUN 26 H Creatinine 1.6 H Glucose 302 H POC Glucose 168 H 136 H Lactic Acid Calcium Magnesium AST ALT Lactate Dehydrogenase Total Creatine Kinase C-Reactive Protein Albumin Urine WBC (Auto) Urine Total Protein Digoxin Salicylates Acetaminophen 01/05/20 01/05/20 01/06/20 20:38 23:32 03:50 WBC RBC Hgb Hct MCV MCH MCHC RDW Plt Count Lymph % (Auto) [place] % (Auto) Eos % (Auto) Lymph # [place] # Eos # Seg Neutrophils % Monocytes % (Manual) Monocytes # (Manual) D-Dimer ABG pH ABG pO2 76.2 L ABG HCO3 30.1 H ABG O2 Saturation ABG Base Excess 5.1 H ABG Hemoglobin 9.5 L Oxyhemoglobin 93.8 L Sodium Potassium Chloride Carbon Dioxide BUN Creatinine Glucose POC Glucose 124 H 163 H Lactic Acid Calcium Magnesium AST ALT Lactate Dehydrogenase Total Creatine Kinase C-Reactive Protein Albumin Urine WBC (Auto) Urine Total Protein Digoxin Salicylates Acetaminophen 01/06/20 01/06/20 01/06/20 04:09 04:58 04:58 WBC RBC Hgb 8.8 L Hct 28.7 L MCV 78 L MCH 24 L MCHC 31 L RDW 18.7 H Plt Count 522 H Lymph % (Auto) [place] % (Auto) Eos % (Auto) Lymph # [place] # Eos # Seg Neutrophils % Monocytes % (Manual) Monocytes # (Manual) D-Dimer ABG pH ABG pO2 ABG HCO3 ABG O2 Saturation ABG Base Excess ABG Hemoglobin Oxyhemoglobin Sodium 150 H D Potassium Chloride 109.3 H Carbon Dioxide BUN 25 H Creatinine Glucose 55 L POC Glucose 65 L Lactic Acid Calcium Magnesium AST ALT Lactate Dehydrogenase Total Creatine Kinase C-Reactive Protein Albumin Urine WBC (Auto) Urine Total Protein Digoxin Salicylates Acetaminophen 01/06/20 01/06/20 01/06/20 05:01 14:10 17:49 WBC RBC Hgb Hct MCV MCH MCHC RDW Plt Count Lymph % (Auto) [place] % (Auto) Eos % (Auto) Lymph # [place] # Eos # Seg Neutrophils % Monocytes % (Manual) Monocytes # (Manual) D-Dimer ABG pH ABG pO2 ABG HCO3 ABG O2 Saturation ABG Base Excess ABG Hemoglobin Oxyhemoglobin Sodium Potassium Chloride Carbon Dioxide BUN Creatinine Glucose POC Glucose 60 L 119 H 131 H Lactic Acid Calcium Magnesium AST ALT Lactate Dehydrogenase Total Creatine Kinase C-Reactive Protein Albumin Urine WBC (Auto) Urine Total Protein Digoxin Salicylates Acetaminophen 01/06/20 01/07/20 01/07/20 21:08 02:11 05:19 WBC RBC Hgb Hct MCV MCH MCHC RDW Plt Count Lymph % (Auto) [place] % (Auto) Eos % (Auto) Lymph # [place] # Eos # Seg Neutrophils % Monocytes % (Manual) Monocytes # (Manual) D-Dimer ABG pH ABG pO2 ABG HCO3 ABG O2 Saturation ABG Base Excess ABG Hemoglobin Oxyhemoglobin Sodium Potassium Chloride Carbon Dioxide BUN Creatinine Glucose POC Glucose 136 H 209 H 182 H Lactic Acid Calcium Magnesium AST ALT Lactate Dehydrogenase Total Creatine Kinase C-Reactive Protein Albumin Urine WBC (Auto) Urine Total Protein Digoxin Salicylates Acetaminophen 01/07/20 01/07/20 01/07/20 11:40 11:52 13:49 WBC RBC Hgb Hct MCV MCH MCHC RDW Plt Count Lymph % (Auto) [place] % (Auto) Eos % (Auto) Lymph # [place] # Eos # Seg Neutrophils % Monocytes % (Manual) Monocytes # (Manual) D-Dimer ABG pH ABG pO2 ABG HCO3 ABG O2 Saturation ABG Base Excess ABG Hemoglobin Oxyhemoglobin Sodium Potassium Chloride Carbon Dioxide BUN 21 H Creatinine Glucose 190 H POC Glucose 180 H 184 H Lactic Acid Calcium Magnesium AST ALT Lactate Dehydrogenase Total Creatine Kinase C-Reactive Protein Albumin Urine WBC (Auto) Urine Total Protein Digoxin Salicylates Acetaminophen 01/07/20 01/07/20 01/07/20 17:54 22:19 Unknown WBC RBC Hgb Hct MCV MCH MCHC RDW Plt Count Lymph % (Auto) [place] % (Auto) Eos % (Auto) Lymph # [place] # Eos # Seg Neutrophils % Monocytes % (Manual) Monocytes # (Manual) D-Dimer ABG pH ABG pO2 ABG HCO3 28.9 H ABG O2 Saturation ABG Base Excess 4.0 H ABG Hemoglobin 11.0 L Oxyhemoglobin 94.2 L Sodium Potassium Chloride Carbon Dioxide BUN Creatinine Glucose POC Glucose 190 H 299 H Lactic Acid Calcium Magnesium AST ALT Lactate Dehydrogenase Total Creatine Kinase C-Reactive Protein Albumin Urine WBC (Auto) Urine Total Protein Digoxin Salicylates Acetaminophen 01/08/20 01/08/20 01/08/20 02:45 05:26 05:27 WBC RBC Hgb Hct MCV MCH MCHC RDW Plt Count Lymph % (Auto) [place] % (Auto) Eos % (Auto) Lymph # [place] # Eos # Seg Neutrophils % Monocytes % (Manual) Monocytes # (Manual) D-Dimer ABG pH ABG pO2 67.8 L ABG HCO3 26.5 H ABG O2 Saturation 93.2 L ABG Base Excess ABG Hemoglobin 8.1 L Oxyhemoglobin 90.4 L Sodium Potassium Chloride Carbon Dioxide BUN Creatinine Glucose POC Glucose 245 H 346 H Lactic Acid Calcium Magnesium AST ALT Lactate Dehydrogenase Total Creatine Kinase C-Reactive Protein Albumin Urine WBC (Auto) Urine Total Protein Digoxin Salicylates Acetaminophen 01/08/20 01/08/20 01/08/20 08:03 08:03 10:33 WBC RBC 3.14 L Hgb 7.6 L Hct 24.3 L MCV 77 L MCH 24 L MCHC 31 L RDW 18.3 H Plt Count 509 H Lymph % (Auto) [place] % (Auto) Eos % (Auto) Lymph # [place] # Eos # Seg Neutrophils % Monocytes % (Manual) Monocytes # (Manual) D-Dimer ABG pH ABG pO2 ABG HCO3 ABG O2 Saturation ABG Base Excess ABG Hemoglobin Oxyhemoglobin Sodium 132 L D Potassium Chloride 94.7 L Carbon Dioxide BUN 22 H Creatinine Glucose 284 H POC Glucose 275 H Lactic Acid Calcium Magnesium AST ALT Lactate Dehydrogenase Total Creatine Kinase C-Reactive Protein Albumin Urine WBC (Auto) Urine Total Protein Digoxin Salicylates Acetaminophen Chest x-ray: other (none today) Allied health notes reviewed: nursing
[2020-01-08] MEDS: SODIUM CHLORIDE 0.9% 1000 ML 1,000 ML IV SCH (13:22)
[2020-01-09] MEDS: INSULIN LISPRO 100 UNIT/ML SUB-Q SCH ×6 (03:40→22:21)
[2020-01-09] MEDS: DOCUSATE SODIUM 100 MG/10 ML ORAL LIQD PO SCH ×3 (06:17→21:55)
[2020-01-09] MEDS: POLYETHYLENE GLYCOL 3350 17 GM POWDER PO SCH ×2 (06:17→21:55)
[2020-01-09] MEDS: LEVOTHYROXINE 88 MCG TAB PO SCH (06:27)
[2020-01-09] MEDS: HYDROCORTISONE SOD SUCC 100 MG/2 ML VIAL IV SCH ×3 (06:27→21:55)
[2020-01-09] MEDS: IPRATROPIUM/ALBUTEROL SULFATE 3 ML AMPUL.NEB IH SCH ×3 (07:43→20:59)
[2020-01-09] MEDS: NORepinephrine/NS 4 MG-250 ML 4 MG/250 ML BAG IV SCH (07:45)
[2020-01-09] MEDS: SODIUM CHLORIDE 0.9% 1000 ML 1,000 ML IV SCH ×2 (07:47→17:19)
[2020-01-09 08:53] LABS: BUN/Creatinine Ratio 23; Blood Urea Nitrogen 25 mg/dL (9-20); Calcium 8.9 mg/dL (8.4-10.2); Hemolysis Index 0
[2020-01-09] MEDS ORDERED: ATROPINE 0.1% (1 MG/10 ML) CARDIAC SYRINGE IV ONE (09:00)
[2020-01-09] MEDS: DOPamine/D5W 800 MG/250 ML 800 MG/250 ML BAG IV SCH (09:01)
[2020-01-09] MEDS: HEPARIN 5,000 UNIT/1 ML VIAL SUB-Q SCH ×2 (09:19→21:55)
[2020-01-09] MEDS: FAMOTIDINE 20 MG TAB PO SCH ×2 (09:19→21:55)
[2020-01-09] MEDS: POTASSIUM CHLORIDE 20 MEQ PACKET FEEDTUBE SCH (09:19)
[2020-01-09] MEDS: ASPIRIN 81 MG TAB CHEW PO SCH (09:19)
[2020-01-09] MEDS: FOLIC ACID 1 MG TAB PO SCH (09:19)
--- NOTE | 2020-01-09 10:46 | Progress Note ---
Assessment and Plan - Patient Problems (1) Acute kidney injury Current Visit: Yes Status: Acute Plan to address problem: JAGDEEP 2/2 pre-renal injury in setting of sepsis and hemodynamic instability, now in recovery phase, with stabilized renal function. Avoid nephrotoxins, maintain MAP >65 mmHg. no further renal recommendations at present, will sign off. (2) Acute respiratory failure Current Visit: Yes Status: Acute Qualifiers: Plan to address problem: Management on vent per Pulmonary/ICU. (3) Hypernatremia Current Visit: Yes Status: Acute Plan to address problem: resolved (4) Pneumonia Current Visit: No Status: Acute Qualifiers: Pneumonia type: due to unspecified organism Laterality: left Lung location: unspecified part of lung Qualified Code(s): J18.9 - Pneumonia, unspecified organism Plan to address problem: Management per primary/ICU team. (5) Diastolic CHF Current Visit: Yes Status: Acute Qualifiers: Heart failure chronicity: acute on chronic Qualified Code(s): I50.33 - Acute on chronic diastolic (congestive) heart failure Plan to address problem: management as per cardiology (6) Obesity hypoventilation syndrome Current Visit: Yes Status: Acute Subjective Date of service: 01/09/20 Principal diagnosis: Ac. Hypoxemic Resp Failure; Septic Shock; Magdiel. PNA; PUI COVID-19; CHF; JOE Interval history: Pt remains on vent, off vasopressor support. Objective - Vital Signs Vital signs: Vital Signs - 12hr 01/08/20 01/08/20 01/08/20 23:00 23:09 23:30 Temperature Pulse Rate 53 L 51 L 55 L Pulse Rate [ Bilateral] Pulse Rate [ From Monitor] Respiratory 13 24 Rate Respiratory Rate [Bilateral ] Blood Pressure 111/52 108/54 99/54 O2 Sat by Pulse 95 93 94 Oximetry 01/09/20 01/09/20 01/09/20 00:00 00:30 00:44 Temperature 97.9 F 97.9 F Pulse Rate 52 L 58 L Pulse Rate [ Bilateral] Pulse Rate [ 54 L From Monitor] Respiratory 24 24 Rate Respiratory Rate [Bilateral ] Blood Pressure 93/54 102/56 O2 Sat by Pulse 94 95 Oximetry 01/09/20 01/09/20 01/09/20 01:00 01:30 02:00 Temperature Pulse Rate 48 L 48 L 56 L Pulse Rate [ Bilateral] Pulse Rate [ From Monitor] Respiratory 24 24 23 Rate Respiratory Rate [Bilateral ] Blood Pressure 110/61 102/58 117/63 O2 Sat by Pulse 96 97 98 Oximetry 01/09/20 01/09/20 01/09/20 02:30 03:00 03:30 Temperature Pulse Rate 49 L 48 L 62 Pulse Rate [ Bilateral] Pulse Rate [ From Monitor] Respiratory 24 25 H 24 Rate Respiratory Rate [Bilateral ] Blood Pressure 109/58 111/60 103/61 O2 Sat by Pulse 96 96 96 Oximetry 01/09/20 01/09/20 01/09/20 04:00 04:30 04:43 Temperature 98.0 F Pulse Rate 46 L 54 L 57 L Pulse Rate [ Bilateral] Pulse Rate [ 56 L From Monitor] Respiratory 24 24 Rate Respiratory Rate [Bilateral ] Blood Pressure 115/58 114/63 122/53 O2 Sat by Pulse 93 84 93 Oximetry 01/09/20 01/09/20 01/09/20 05:00 05:30 06:00 Temperature Pulse Rate 56 L 68 64 Pulse Rate [ Bilateral] Pulse Rate [ From Monitor] Respiratory 11 L 27 H 24 Rate Respiratory Rate [Bilateral ] Blood Pressure 139/64 98/47 88/38 O2 Sat by Pulse 83 L 93 96 Oximetry 01/09/20 01/09/20 07:43 08:00 Temperature 97.4 F L Pulse Rate 81 Pulse Rate [ 78 Bilateral] Pulse Rate [ From Monitor] Respiratory Rate Respiratory 27 H Rate [Bilateral ] Blood Pressure 160/92 O2 Sat by Pulse 96 Oximetry - General Appearance General appearance: well-developed, appears stated age, intubated EENT: ATNC, PERRL, mucous membranes moist Neck: no JVD Respiratory: Present: Decreased Breath Sounds Cardiology: regular, S1S2 Gastrointestinal: normoactive bowel sounds Integumentary: no rash - Lab 01/08/20 08:03 01/09/20 08:15 Most recent lab results ABG pH 7.414 pH Units (7.350-7.450) 01/08/20 05:27 ABG pCO2 42.3 mm Hg 01/08/20 05:27 ABG pO2 67.8 mm Hg (80.0-90.0) L 01/08/20 05:27 ABG HCO3 26.5 mmol/L (20.0-26.0) H 01/08/20 05:27 ABG O2 Saturation 93.2 % (95.0-99.0) L 01/08/20 05:27 Calcium 8.9 mg/dL (8.4-10.2) 01/09/20 08:15 Phosphorus 3.70 mg/dL (2.5-4.5) 12/27/19 03:48 Magnesium 2.60 mg/dL (1.7-2.3) H 12/30/19 05:06 Urine Creatinine < 4.2 mg/dL (0.1-20.0) 12/25/19 16:45 Urine Sodium 10 mmol/L 12/25/19 16:45 Urine Total Protein < 4 mg/dL (5-11.8) L 12/25/19 16:45 Medications & Allergies - Medications Allergies/Adverse Reactions: Allergies No Known Allergies Allergy (Unverified 12/19/19 01:31) Home Medications: Home Medications Medication Instructions Recorded Confirmed Last Taken Type Ipratropium/Albuterol Sulfate 1 ampul IH TIDRT #90 ampul.neb 06/02/19 12/28/19 Unknown Rx [DUONEB *Not for PRN Use*] Aspirin [Aspirin BABY CHEW TAB] 81 mg PO DAILY 06/03/19 12/28/19 3 Days Ago History ~05/31/19 Desmopressin [Ddavp] 0.2 mg PO BID 06/03/19 12/28/19 3 Days Ago History ~05/31/19 Digoxin [Lanoxin] 0.125 mg PO DAILY 06/03/19 12/28/19 3 Days Ago History ~05/31/19 Folic Acid 100 mg PO DAILY 06/03/19 12/28/19 3 Days Ago History ~05/31/19 Furosemide [Lasix TAB] 40 mg PO QDAY 06/03/19 12/28/19 3 Days Ago History ~05/31/19 Insulin Lispro [Humalog 100 4 units SQ AC 06/03/19 12/28/19 3 Days Ago History UNITS/ML Kwikpen] ~05/31/19 Levothyroxine [Synthroid] 88 mcg PO QAM 06/03/19 12/28/19 3 Days Ago History ~05/31/19 Metformin HCl [metFORMIN] 1,000 mg PO BID 06/03/19 12/28/19 3 Days Ago History ~05/31/19 Potassium Chloride [K-Dur] 20 meq PO QDAY 06/03/19 12/28/19 3 Days Ago History ~05/31/19 carvediloL [Coreg] 6.25 mg PO BID 06/03/19 12/28/19 3 Days Ago History ~05/31/19 Famotidine [Pepcid] 20 mg PO QDAY #30 tablet 06/06/19 12/28/19 Unknown Rx Insulin NPH/Regular [NovoLIN 70/30] 50 unit SUB-Q BIDDIAB #100 units 06/06/19 12/28/19 Unknown Rx Active Medications: Generic Name Dose Route Start Last Admin Trade Name Freq PRN Reason Stop Dose Admin Acetaminophen 650 mg 12/29/19 09:21 01/03/20 18:31 Tylenol PO 650 mg Q4H PRN Administration Non Cardiac Pain or Temp>100.5 Albuterol/Ipratropium 1 ampul 12/18/19 14:00 01/09/20 07:43 Duoneb *Not For Prn Use* IH 1 ampul TIDRT SHANEL Administration Lipase/Protease/Amylase 1 each 12/19/19 08:29 Pancreaze 10,500 Unit FEEDTUBE PRN PRN For Clogged Feeding Tube Aspirin 81 mg 12/19/19 10:00 01/09/20 09:19 Baby Aspirin PO 81 mg DAILY SHANEL Administration Bisacodyl 10 mg 01/02/20 15:48 01/02/20 18:25 Dulcolax RI 10 mg QDAY PRN Administration Constipation Docusate Sodium 100 mg 01/01/20 22:00 01/09/20 09:22 Colace PO Not Given BID SHANEL Famotidine 20 mg 12/20/19 10:00 01/09/20 09:19 Pepcid PO 20 mg BID SHANEL Administration Fentanyl 50 mcg 12/27/19 16:57 Sublimaze IV Q10MIN PRN ANALGESIA Folic Acid 1 mg 12/19/19 10:00 01/09/20 09:19 Folvite PO 1 mg DAILY SHANEL Administration Heparin Sodium (Porcine) 5,000 unit 12/18/19 22:00 01/09/20 09:19 Heparin SUB-Q 5,000 unit Q12HR SHANEL Administration Hydrocortisone Sodium Succinate 100 mg 01/07/20 14:00 01/09/20 06:27 Solu-Cortef IV 01/12/20 13:59 100 mg Q8HR SHANEL Administration Hydrophilic Ointment 1 applic 12/18/19 12:35 Vaseline Lip Therapy TP Q2HR PRN Dry Lips Fentanyl Citrate 2,000 mcg in 100 mls @ 5.85 mls/hr 12/27/19 17:00 01/09/20 09:20 Fentanyl Drip Premix IV 1 mcg/kg/hr TITR SHANEL 5.85 mls/hr Titration Protocol 1 MCG/KG/HR Norepinephrine 4 mg in 250 mls @ 7.5 mls/hr 12/28/19 15:00 01/09/20 09:02 Levophed Drip 4 Mg/Ns 250 Ml IV 0 mcg/min TITR SHANEL 0 mls/hr Titration Protocol 2 MCG/MIN Vasopressin 20 unit/ Sodium 101 mls @ 9.09 mls/hr 12/30/19 12:30 01/01/20 13:44 Chloride IV 0 units/min TITR SHANEL 0 mls/hr Titration Protocol 0.03 UNITS/MIN Dopamine HCl/Dextrose 800 mg in 250 mls @ 4.388 mls/hr 12/31/19 16:00 01/09/20 09:01 Intropin Drip 800 Mg/D5w 250 Ml IV 2 mcg/kg/min TITR SHANEL 4.388 mls/hr Administration Protocol 2 MCG/KG/MIN Sodium Chloride 1,000 mls @ 50 mls/hr 01/08/20 12:30 01/09/20 07:47 Nacl 0.9% 1000 Ml IV 50 mls/hr DIRECT SHANEL Administration Insulin Human Lispro 0 unit 12/31/19 14:00 01/09/20 09:21 Humalog SUB-Q 3 unit Q4HR SHANEL Administration Protocol Levothyroxine Sodium 88 mcg 12/19/19 06:00 01/09/20 06:27 Synthroid PO 88 mcg QAM@0600 SHANEL Administration Multi-Ingred Cream/Lotion/Oil/Oint 1 applic 12/18/19 12:35 Artificial Tears Ophth Oint OU Q4HR PRN Dry Eye(s) Polyethylene Glycol 17 gm 01/01/20 22:00 01/09/20 06:17 Miralax 3350 PO Not Given QHS SHANEL Potassium Chloride 40 meq 12/29/19 10:00 01/09/20 09:19 Potassium Chloride FEEDTUBE 40 meq QDAY SHANEL Administration Simple Syrup 15 ml 12/19/19 08:29 01/06/20 04:58 Simple Syrup FEEDTUBE 15 ml PRN PRN Administration Hypoglycemia Simple Syrup 30 ml 12/19/19 08:29 Simple Syrup FEEDTUBE PRN PRN Hypoglycemia Sodium Bicarbonate 325 mg 12/19/19 08:29 Sodium Bicarbonate FEEDTUBE PRN PRN For Clogged Feeding Tube Sodium Chloride 10 ml 12/18/19 22:00 01/09/20 09:20 Sodium Chloride Flush Syringe 10 Ml IV 10 ml BID SHANEL Administration Sodium Chloride 10 ml 12/18/19 13:31 Sodium Chloride Flush Syringe 10 Ml IV PRN PRN LINE FLUSH
--- NOTE | 2020-01-09 11:12 | Progress Note ---
Assessment and Plan Assessment and plan: 59-year-old male past medical history diastolic CHF, OHS, HTN, DM 2, hypothyroidism admitted with confusion after being found by a neighbor. On arrival patient was found to be lethargic, and in respiratory distress and hypoxic. Patient was intubated in the ER because of hypoxic respiratory failure. Also noted to be hypotensive, placed on pressor admitted to ICU. Patient is negative for COVID-19, being treated for bilateral pneumonia. JAGDEEP improved with IV fluid, ID and critical care following. Chest x-ray: Left lower lobe airspace disease CT chest: 1. Patchy bilateral nodular and consolidative airspace opacities which are nonspecific but likely related to the reported history of Covid. 2. Multiple enlarged partially visualized left supraclavicular and lower cervical chain lymph nodes. While these are nonspecific and may be reactive, a neoplastic process is possible, recommend short interval follow-up after patient recovers from the acute episode. /Septic Shock /HypERnatremia / Acute hypoxic respiratory failure Likely from bilateral pneumonia and diastolic heart failure Patient intubated, placed on ventilatory support. critical care team consulted in ED. Patient is extubated, continue nebulizer breathing treatment and as needed biPAP We will also do a swallow eval / Sepsis with shock cont IV antibiotic therapy, IV fluid resuscitation therapy, monitor urine output every shift, maintain mean arterial blood pressure greater than or equal to 65, s/p IV pressor support. / Suspected 2019-nCoV infection -ruled out with 2 negative test / Diastolic CHF Preserved EF based on prior echocardiogram Monitor weight strict I's/O, daily weight, monitor urine output every shift, submental oxygen, blood pressure control. /JAGDEEP, due to vasomotor nephropathy, present on admission -Creatinine improving, -Likely due to severe sepsis and hypotension /hypernatremia, -due to dehydration and sepsis -change fluid to D5W - monitor BMP /Hypokalemia, replete / Diabetes type II Initiate tube feeding diet Sliding scale insulin, Accu-Chek, hypoglycemia protocol. / Hypothyroidism Synthroid therapy, supportive care. / Bilateral pneumonia Pneumonia protocol: IV antibiotic therapy with rocephin for total 7 days, pulse oximetry, /Cervical lymphadenopathy -Reactive versus infectious process versus malignancy -Need repeat scanning and further staging when medically more stable -Pulmonology and ID following /Ileus: Hold tube feeds / HTN (hypertension) -hold BP meds as patient is hypotensive Monitor blood pressure every shift, continue medical management. /History of obstructive sleep apnea -Patient currently on mechanical ventilation /Acute metabolic encephalopathy Secondary to hyponatremia. /Urinary retention, suspected in the ER -Patient having good urine output now, will hold any CT scan -Continue IV fluid / DVT prophylaxis SCD to bilateral lower extremities while in bed, prophylactic heparin 12/19/19: Negative for COVID-19, continue pressor and wean off as tolerated, continue IV antibiotic and follow cultures. 12/19: Weaned off from pressor, sodium 156>157>153 today, creatinine 1.4>1.2>1.0. Continue IV fluid. Wean off from vent as tolerated. Follow ID recommendation 12/20: Extubated today, continue to monitor in the ICU overnight if clinically stable with transfer out to [facility]/telemetry tomorrow a.m.. Sodium 149 today, continue IV fluid and monitor BMP. Swallow eval, PT OT eval. 2nd text for covid is negative 12/21: transfer to [facility], start on gentle hydration. mechanical soft diet 12/22: placed back on bipap, Na 163 - start on D5W, monitor bmp 12/23: spoke to sister, updated [id number], also discussed Pulmonary, will likely need LTAC. Obtain Nephrology due to persistent Hypernatremia. Will start on free water and continue to monitor. Remains of restriants for safety due to intermittent confusion. 12/24: Still with intermittent encephalopathy. Requiring restraints. Hypernatremia still persist continue hypotonic solution. Nephrology consulted. Free water started this morning will increase dose. Replace potassium as hypokalemia still persist 12/26/19: Clinically improving, BIPAP now PRN AND HS, Na improving, continue renal follow up. I have called [facility] in case they would like to transfer the patient tested previously requested. 12/26: Hypernatermia still persist, had pulled out NGT yesterday, Continue free water, Continue Bipap, [place] states he is not yet stable for transfer. Although from our critical care team this patient has been cleared for to be able to transfer. 12/27: Patient reintubated due to hypoxia. Continue current management as outlined by sales administration specialist. Sodium is improving. Continue current management monitor ABG and intermittent chest x-ray. [facility] updated. Patient sister also updated. 12/28: Sepsis persist. Antibiotics adjusted.-start linezolid 600 mg IV q 12 hour. Will adjust insulin for better management of blood glucose. 12/29: Shock still persist Levophed adjusted upward. [facility] advised patient not safe for travel at this time. Continue ventilatory support continue full support antibiotics adjusted by ID. Follow cultures 12/30: Still on the vent and pressors , Isolation secondary MRSA In sputum. 12/31: Continue current management, will need intermittent chest xray, adjust insulin For better blood glucose control. Check labs in am 01/01: KUB reviewed shows distended bowel with no no specific obstruction noted. We will hold tube feeds at this time place NG tube to low intermittent suction. Repeat chest x-ray in a.m. Hyponatremia is better kidney function appears to be improving continue to monitor. 01/02: Continue feeding tube to low intermittent suction over 500 residual came out in the last 16+ hours. Repeat blood culture per ID. Continue antibiotics. We will obtain the CT abdomen and pelvis without contrast as renal function is mildly increased today. Prognosis is guarded repeat imaging concerning for colon distention. Will defer to critical care if the fecal management system should be placed. 01/03: CT A/P and chest. IMPRESSION: 1. Predominantly dependent bilateral consolidative and groundglass changes throughout both lungs have worsened since the prior. There is a new small left pleural effusion as well. These findings could be seen in the setting of pulmonary edema with associated superimposed infectious process. There is no cardiomegaly. 2. Left cervical/supraclavicular adenopathy appears slightly increased. This is nonspecific. However, there are shoddy nodes throughout the retroperitoneum and within the pelvis, and the spleen is mildly enlarged. Taken together, these findings are concerning for lymphoproliferative process such as lymphoma. - Ultrasound guided Biopsy, also send peripheral smear. US guided biopsy ordered - add a second pressors 01/04: Awaiting biopsy, continue supportive care, Sodium stable and improving. Patient undergoing bronchoscopy today. 01/05: Continue supportive care, monitor sodium level, wean pressors as tolerated, Radiology unable to perform biopsy of Lymphnode while patient is on the vent per Radiology team. [place] updated of clinical status 01/06: Remains on pressors. Continues with nonoliguric kidney injury. We will give a bolus of fluid as patient is still dry. Hypoglycemia is improving will decrease to D5 from D10 at the same rate. Continue to monitor await cultures and cytology from bronchoscopy. Likely will need trach and PEG. 01/07: Discontinue D5. Patient did receive a bolus of fluid yesterday. Bowel movement noted. Monitor blood sugar close, continue to wean pressors, folllow result from bronchoscopy. start considering Trach and PEG 01/08: Noted hypotensive again this morning requiring reinitiation of pressors. Also was bradycardic received atropine. Keep atropine at bedside cardiology evaluated continue pulmonary supportive care while on ventilator. Renal function is improving. Will give additional bolus of fluid. The high probability of a clinically significant, sudden or life threatening deterioration of the [renal, pulmonary] system(s) required my full and direct attention, intervention and personal management. The aggregate critical care time was [35] minutes. This time is in addition to time spent performing reported procedures but includes the following: [x] Data Review and interpretation [x] Patient assessment and monitoring of vital signs [x] Documentation [x] Medication orders and management History Interval history: Patient seen and examined, still on full ventilatory support, overnight was noted to be hypotensive and bradycardic requiring atropine. Hospitalist Physical - Physical exam Narrative exam: GENERAL: Still on full ventilatory support. well-developed obese more awake today.. ETT HEENT: Normocephalic. Atraumatic. No conjunctival congestion or icterus. Patient has moist mucous membranes. ETT NECK: Supple. Trachea midline. CHEST/LUNGS: Coarse breath sound auscultated bilaterally, HEART/CARDIOVASCULAR: bradycardia ABDOMEN: Abdomen is soft, distended but nontender. Patient has normal bowel sounds. SKIN: Warm and dry. NEURO: Follows some command, AMS, no focal deficits MUSCULOSKELETAL: No joint effusion or tenderness. EXTRIMITY: No edema, no cyanosis or clubbing. PSYCH: Calm - Constitutional Vitals: Temp Pulse Resp BP Pulse Ox 97.4 F L 78 27 H 160/92 96 01/09/20 08:00 01/09/20 07:43 01/09/20 07:43 01/09/20 07:43 01/09/20 07:43 General appearance: Present: severe distress HEART Score - HEART Score Troponin: Troponin T 0.011 ng/mL (0.00-0.029) 12/18/19 14:45 Results - Labs CBC & Chem 7: 01/08/20 08:03 07/05/20 08:15 Labs: Laboratory Last Values WBC 7.2 K/mm3 (4.5-11.0) 01/08/20 08:03 RBC 3.14 M/mm3 (3.65-5.03) L 01/08/20 08:03 Hgb 7.6 gm/dl (11.8-15.2) L 01/08/20 08:03 Hct 24.3 % (35.5-45.6) L 01/08/20 08:03 MCV 77 fl (84-94) L 01/08/20 08:03 MCH 24 pg (28-32) L 01/08/20 08:03 MCHC 31 % (32-34) L 01/08/20 08:03 RDW 18.3 % (13.2-15.2) H 01/08/20 08:03 Plt Count 509 K/mm3 (140-440) H 01/08/20 08:03 Lymph % (Auto) 19.9 % (13.4-35.0) 01/02/20 05:00 [place] % (Auto) 9.4 % (0.0-7.3) H 01/02/20 05:00 Eos % (Auto) 11.2 % (0.0-4.3) H 01/02/20 05:00 Baso % (Auto) 0.8 % (0.0-1.8) 01/02/20 05:00 Lymph # 1.4 K/mm3 (1.2-5.4) 01/02/20 05:00 [place] # 0.7 K/mm3 (0.0-0.8) 01/02/20 05:00 Eos # 0.8 K/mm3 (0.0-0.4) H 01/02/20 05:00 Baso # 0.1 K/mm3 (0.0-0.1) 01/02/20 05:00 Add Manual Diff Complete 12/24/19 04:53 Total Counted 100 12/24/19 04:53 Seg Neutrophils % 58.7 % (40.0-70.0) 01/02/20 05:00 Seg Neuts % (Manual) 60.0 % (40.0-70.0) 12/24/19 04:53 Band Neutrophils % 0 % 12/24/19 04:53 Lymphocytes % (Manual) 20.0 % (13.4-35.0) 12/24/19 04:53 Reactive Lymphs % (Man) 0 % 12/24/19 04:53 Monocytes % (Manual) 15.0 % (0.0-7.3) H 12/24/19 04:53 Eosinophils % (Manual) 4.0 % (0.0-4.3) 12/24/19 04:53 Basophils % (Manual) 0 % (0.0-1.8) 12/24/19 04:53 Metamyelocytes % 1.0 % 12/24/19 04:53 Myelocytes % 0 % 12/24/19 04:53 Promyelocytes % 0 % 12/24/19 04:53 Blast Cells % 0 % 12/24/19 04:53 Nucleated RBC % Not Reportable 12/24/19 04:53 Seg Neutrophils # 4.0 K/mm3 (1.8-7.7) 01/02/20 05:00 Seg Neutrophils # Man 3.5 K/mm3 (1.8-7.7) 12/24/19 04:53 Band Neutrophils # 0.0 K/mm3 12/24/19 04:53 Lymphocytes # (Manual) 1.2 K/mm3 (1.2-5.4) 12/24/19 04:53 Abs React Lymphs (Man) 0.0 K/mm3 12/24/19 04:53 Monocytes # (Manual) 0.9 K/mm3 (0.0-0.8) H 12/24/19 04:53 Eosinophils # (Manual) 0.2 K/mm3 (0.0-0.4) 12/24/19 04:53 Basophils # (Manual) 0.0 K/mm3 (0.0-0.1) 12/24/19 04:53 Metamyelocytes # 0.1 K/mm3 12/24/19 04:53 Myelocytes # 0.0 K/mm3 12/24/19 04:53 Promyelocytes # 0.0 K/mm3 12/24/19 04:53 Blast Cells # 0.0 K/mm3 12/24/19 04:53 WBC Morphology Not Reportable 12/24/19 04:53 Hypersegmented Neuts Not Reportable 12/24/19 04:53 Hyposegmented Neuts Not Reportable 12/24/19 04:53 Hypogranular Neuts Not Reportable 12/24/19 04:53 Smudge Cells Not Reportable 12/24/19 04:53 Toxic Granulation Not Reportable 12/24/19 04:53 Toxic Vacuolation Not Reportable 12/24/19 04:53 Dohle Bodies Not Reportable 12/24/19 04:53 Pelger-Huet Anomaly Not Reportable 12/24/19 04:53 Mervin Rods Not Reportable 12/24/19 04:53 Platelet Estimate Consistent w auto 12/24/19 04:53 Clumped Platelets Not Reportable 12/24/19 04:53 Plt Clumps, EDTA Not Reportable 12/24/19 04:53 Large Platelets Not Reportable 12/24/19 04:53 Giant Platelets Not Reportable 12/24/19 04:53 Platelet Satelliting Not Reportable 12/24/19 04:53 Plt Morphology Comment Not Reportable 12/24/19 04:53 RBC Morphology Not Reportable 12/24/19 04:53 Dimorphic RBCs Not Reportable 12/24/19 04:53 Polychromasia Rare 12/24/19 04:53 Hypochromasia 1+ 12/24/19 04:53 Poikilocytosis Not Reportable 12/24/19 04:53 Anisocytosis 1+ 12/24/19 04:53 Microcytosis Few 12/24/19 04:53 Macrocytosis Not Reportable 12/24/19 04:53 Spherocytes Not Reportable 12/24/19 04:53 Pappenheimer Bodies Not Reportable 12/24/19 04:53 Sickle Cells Not Reportable 12/24/19 04:53 Target Cells Not Reportable 12/24/19 04:53 Tear Drop Cells Not Reportable 12/24/19 04:53 Ovalocytes Few 12/24/19 04:53 Helmet Cells Not Reportable 12/24/19 04:53 [place] Bodies Not Reportable 12/24/19 04:53 [place]der[place] Rings Not Reportable 12/24/19 04:53 [place] Cells Not Reportable 12/24/19 04:53 Bite Cells Not Reportable 12/24/19 04:53 Crenated Cell Not Reportable 12/24/19 04:53 Elliptocytes Not Reportable 12/24/19 04:53 Acanthocytes (Spur) Not Reportable 12/24/19 04:53 Rouleaux Not Reportable 12/24/19 04:53 Hemoglobin C Crystals Not Reportable 12/24/19 04:53 Schistocytes Not Reportable 12/24/19 04:53 Malaria parasites Not Reportable 12/24/19 04:53 Gianni Bodies Not Reportable 12/24/19 04:53 Hem Pathologist Commnt No 12/24/19 04:53 PT 14.0 Sec. (12.2-14.9) 12/18/19 14:45 INR 1.10 (0.87-1.13) 12/18/19 14:45 APTT 29.4 Sec. (24.2-36.6) 12/18/19 14:45 D-Dimer 534.45 ng/mlDDU (0-234) H 12/18/19 14:45 ABG pH 7.414 pH Units (7.350-7.450) 01/08/20 05:27 ABG pCO2 42.3 mm Hg 01/08/20 05:27 ABG pO2 67.8 mm Hg (80.0-90.0) L 01/08/20 05:27 ABG HCO3 26.5 mmol/L (20.0-26.0) H 01/08/20 05:27 ABG O2 Saturation 93.2 % (95.0-99.0) L 01/08/20 05:27 ABG O2 Content 10.4 (0.0-44) 01/08/20 05:27 ABG Base Excess 1.7 mmol/L (-2.0-3.0) 01/08/20 05:27 ABG Hemoglobin 8.1 gm/dl (14.0-18.0) L 01/08/20 05:27 ABG Carboxyhemoglobin 1.9 % (0.0-5.0) 01/08/20 05:27 ABG Methemoglobin 1.1 % (0.0-1.5) 01/08/20 05:27 Oxyhemoglobin 90.4 % (95.0-99.0) L 01/08/20 05:27 FiO2 35 % 01/08/20 05:27 Sodium 134 mmol/L (137-145) L 01/09/20 08:15 Potassium 4.8 mmol/L (3.6-5.0) 01/09/20 08:15 Chloride 97.6 mmol/L (98-107) L 01/09/20 08:15 Carbon Dioxide 25 mmol/L (22-30) 01/09/20 08:15 Anion Gap 16 mmol/L 01/09/20 08:15 BUN 25 mg/dL (9-20) H 01/09/20 08:15 Creatinine 1.1 mg/dL (0.8-1.5) 01/09/20 08:15 Estimated GFR > 60 ml/min 01/09/20 08:15 BUN/Creatinine Ratio 23 % 01/09/20 08:15 Glucose 240 mg/dL (75-100) H 01/09/20 08:15 POC Glucose 300 (70-105) H 01/09/20 05:55 Lactic Acid 1.70 mmol/L (0.7-2.0) 12/30/19 05:06 Calcium 8.9 mg/dL (8.4-10.2) 01/09/20 08:15 Phosphorus 3.70 mg/dL (2.5-4.5) 12/27/19 03:48 Magnesium 2.60 mg/dL (1.7-2.3) H 12/30/19 05:06 Ferritin 83.4 ng/mL (13.0-400.0) 12/18/19 14:45 Total Bilirubin 0.30 mg/dL (0.1-1.2) 12/19/19 04:13 AST 85 units/L (5-40) H 12/19/19 04:13 ALT 61 units/L (7-56) H 12/19/19 04:13 Alkaline Phosphatase 80 units/L (35-129) 12/19/19 04:13 Ammonia 39.0 umol/L (25-60) 12/18/19 14:45 Lactate Dehydrogenase 235 units/L (91-180) H 12/18/19 14:45 Lactate Dehydrogenase 236 units/L (91-180) H 12/18/19 14:45 Total Creatine Kinase 40 units/L (55-170) L 12/18/19 14:45 Troponin T 0.011 ng/mL (0.00-0.029) 12/18/19 14:45 C-Reactive Protein 8.40 mg/dL (0.00-1.30) H 12/18/19 14:45 C-Reactive Protein 8.50 mg/dL (0.00-1.30) H 12/18/19 14:45 Total Protein 6.8 g/dL (6.3-8.2) 12/19/19 04:13 Albumin 3.0 g/dL (3.9-5) L 12/19/19 04:13 Albumin/Globulin Ratio 0.8 % 12/19/19 04:13 Procalcitonin 0.22 ng/mL (<0.15) 12/18/19 14:45 TSH 2.300 mlU/mL (0.270-4.200) 12/18/19 14:45 Urine Color Yellow (Yellow) 12/19/19 16:50 Urine Turbidity Clear (Clear) 12/19/19 16:50 Urine pH 5.0 (5.0-7.0) 12/19/19 16:50 Ur Specific [place] 1.010 (1.003-1.030) 12/19/19 16:50 Urine Protein <15 mg/dl mg/dL (Negative) 12/19/19 16:50 Urine Glucose (UA) 150 mg/dL (Negative) 12/19/19 16:50 Urine Ketones Neg mg/dL (Negative) 12/19/19 16:50 Urine Blood Neg (Negative) 12/19/19 16:50 Urine Nitrite Neg (Negative) 12/19/19 16:50 Urine Bilirubin Neg (Negative) 12/19/19 16:50 Urine Urobilinogen < 2.0 mg/dL (<2.0) 12/19/19 16:50 Ur Leukocyte Esterase Tr (Negative) 12/19/19 16:50 Urine WBC (Auto) 7.0 /HPF (0.0-6.0) H 12/19/19 16:50 Urine RBC (Auto) 4.0 /HPF (0.0-6.0) 12/19/19 16:50 U Epithel Cells (Auto) 1.0 /HPF (0-13.0) 12/19/19 16:50 Urine Bacteria (Auto) 1+ /HPF (Negative) 12/19/19 16:50 Urine Mucus Few /HPF 12/19/19 16:50 Urine Osmolality 140 Mosm/kg 12/25/19 16:45 Urine Creatinine < 4.2 mg/dL (0.1-20.0) 12/25/19 16:45 Urine Sodium 10 mmol/L 12/25/19 16:45 Urine Total Protein < 4 mg/dL (5-11.8) L 12/25/19 16:45 Digoxin 0.3 ng/mL (0.9-2.0) L 12/18/19 14:45 Salicylates < 0.3 mg/dL (2.8-20.0) L 12/18/19 14:45 Acetaminophen < 5.0 ug/mL (10.0-30.0) L 12/18/19 14:45 Plasma/Serum Alcohol < 0.01 % (0-0.07) 12/18/19 14:45 Coronavirus (PCR) Negative (Negative) 12/21/19 14:45 AFB Identification 01/05/20 09:05 Fungal Id Prelim 01/05/20 09:05 Blood Type A POSITIVE 12/18/19 14:45 Antibody Screen Negative 12/18/19 14:45 - Diagnostic Impressions Diagnostic Impressions: Echocardiogram 12/28/19 14:07 Transthoracic Echocardiogram Indication: SOB BP: 95/51 HR: 99 Conclusions *The left ventricular chamber size is mildly dilated. *There is no left ventricular hypertrophy. *Global left ventricular systolic function is mildly decreased. *The estimated ejection fraction is 45-50%. *Abnormal left ventricular diastolic filling is observed, consistent with impaired relaxation. *The right ventricular global systolic function is mildly reduced. *The right ventricular systolic pressure is calculated at 53 mmHg. Findings Left Ventricle: The left ventricular chamber size is mildly dilated. There is no left ventricular hypertrophy. Global left ventricular systolic function is mildly decreased. The estimated ejection fraction is 45-50%. Abnormal left ventricular diastolic filling is observed, consistent with impaired relaxation. Left Atrium: The left atrial chamber size is normal. Right Ventricle: The right ventricular cavity size is normal. The right ventricular global systolic function is mildly reduced. Right Atrium: The right atrial cavity size is normal. Aortic Valve: The aortic valve leaflets are mildly thickened. There is no evidence of aortic regurgitation. Mitral Valve: The mitral valve leaflets are mildly thickened. There is no evidence of mitral regurgitation. Tricuspid Valve: The tricuspid valve leaflets are normal. There is mild tricuspid regurgitation. The right ventricular systolic pressure is calculated at 53 mmHg. Pulmonic Valve: The pulmonic valve appears normal. There is trace pulmonic regurgitation. Pericardium: There is no pericardial effusion. Aorta: The aorta appears normal. Venous: The inferior vena cava is dilated. Measurements Chambers 2D Name Value Normal Range IVSd (2D) 1.08 cm (0.6 - 1.1) LVPWd (2D) 1 cm (0.6 - 1.1) LVIDd (2D) 4.67 cm (3.7 - 5.6) LVIDs (2D) 3.89 cm (2 - 3.8) LV FS (2D) 16.76 % - EF Teichholz (2D) 35.14 % - Ao root diameter (2D) 2.86 cm (2 - 3.7) Volumes/Mass Name Value Normal Range LA ESV SP 4CH (A/L) 31.8 ml - LA ESV SP 2CH (A/L) 27.37 ml - LA ESV BP (A/L) 33.43 ml - LA ESV BP (A/L) index 14.11 ml/m2 - LA ESV SP 4CH (MOD) 26.83 ml - LA ESV SP 2CH (MOD) 29.59 ml - LA ESV BP (MOD) 30.47 ml - LA ESV BP (MOD) index 12.86 ml/m2 - Diastolic/Systolic Function Name Value Normal Range MV E-wave Vmax 0.39 m/sec - MV deceleration time 115.69 msec - MV A-wave Vmax 0.63 m/sec - MV E:A ratio 0.62 ratio - Aortic Valve Name Value Normal Range AV Vmax 1.14 m/sec - AV VTI 20.1 cm - AV peak gradient 5.17 mmHg - AV mean gradient 3.89 mmHg - LVOT diameter 2.02 cm - LVOT Vmax 0.99 m/sec - LVOT VTI 16.45 cm - LVOT peak gradient 3.95 mmHg - LVOT mean gradient 2.45 mmHg - SV LVOT 52.45 ml - RAPLH (continuity Vmax) 2.78 cm2 - RALPH (continuity VTI) 2.61 cm2 - Tricuspid Valve Name Value Normal Range TR Vmax 3.36 m/sec - TR peak gradient 45 mmHg - RAP 8 mmHg - RVSP 53 mmHg - IVC diameter 2.33 cm (1.2 - 2.3) Pulmonic Valve/Qp:Qs Name Value Normal Range PV Vmax 0.89 m/sec - PV peak gradient 3.16 mmHg - DC end-diastolic Vmax 1.42 m/sec - PV acceleration time 79.92 msec - Sykes/IV: Voiding Method Condom Catheter IV Catheter Type [Right Upper PICC Line arm] IV Catheter Type [Right Leg] Intra-osseous IV Catheter Type [Right Wrist] Peripheral IV IV Catheter Type [Right Hand] INT / Saline Lock IV Catheter Type [Left Hand] INT / Saline Lock IV Catheter Type [Left Forearm INT / Saline Lock ] IV Catheter Type [Left Triple Lumen Cath Internal Jugular] Active Medications - Current Medications Current Medications: Generic Name Dose Route Start Last Admin Trade Name Freq PRN Reason Stop Dose Admin Acetaminophen 650 mg 12/29/19 09:21 01/03/20 18:31 Tylenol PO 650 mg Q4H PRN Administration Non Cardiac Pain or Temp>100.5 Albuterol/Ipratropium 1 ampul 12/18/19 14:00 01/09/20 07:43 Duoneb *Not For Prn Use* IH 1 ampul TIDRT SHANEL Administration Lipase/Protease/Amylase 1 each 12/19/19 08:29 Pancrecorry Cabrera 10,500 Unit FEEDTUBE PRN PRN For Clogged Feeding Tube Aspirin 81 mg 12/19/19 10:00 01/09/20 09:19 Baby Aspirin PO 81 mg DAILY SHANEL Administration Bisacodyl 10 mg 01/02/20 15:48 01/02/20 18:25 Dulcolax DC 10 mg QDAY PRN Administration Constipation Docusate Sodium 100 mg 01/01/20 22:00 01/09/20 09:22 Colace PO Not Given BID SHANEL Famotidine 20 mg 12/20/19 10:00 01/09/20 09:19 Pepcid PO 20 mg BID SHANEL Administration Fentanyl 50 mcg 12/27/19 16:57 Sublimaze IV Q10MIN PRN ANALGESIA Folic Acid 1 mg 12/19/19 10:00 01/09/20 09:19 Folvite PO 1 mg DAILY SHANEL Administration Heparin Sodium (Porcine) 5,000 unit 12/18/19 22:00 01/09/20 09:19 Heparin SUB-Q 5,000 unit Q12HR SHANEL Administration Hydrocortisone Sodium Succinate 100 mg 01/07/20 14:00 01/09/20 06:27 Solu-Cortef IV 01/12/20 13:59 100 mg Q8HR SHANEL Administration Hydrophilic Ointment 1 applic 12/18/19 12:35 Vaseline Lip Therapy TP Q2HR PRN Dry Lips Fentanyl Citrate 2,000 mcg in 100 mls @ 5.85 mls/hr 12/27/19 17:00 01/09/20 09:20 Fentanyl Drip Premix IV 1 mcg/kg/hr TITR SHANEL 5.85 mls/hr Titration Protocol 1 MCG/KG/HR Norepinephrine 4 mg in 250 mls @ 7.5 mls/hr 12/28/19 15:00 01/09/20 09:02 Levophed Drip 4 Mg/Ns 250 Ml IV 0 mcg/min TITR SHANEL 0 mls/hr Titration Protocol 2 MCG/MIN Vasopressin 20 unit/ Sodium 101 mls @ 9.09 mls/hr 12/30/19 12:30 01/01/20 13:44 Chloride IV 0 units/min TITR SHANEL 0 mls/hr Titration Protocol 0.03 UNITS/MIN Dopamine HCl/Dextrose 800 mg in 250 mls @ 4.388 mls/hr 12/31/19 16:00 0 01/09/20 09:01 Intropin Drip 800 Mg/D5w 250 Ml IV 2 mcg/kg/min TITR SHANEL 4.388 mls/hr Administration Protocol 2 MCG/KG/MIN Sodium Chloride 1,000 mls @ 50 mls/hr 01/08/20 12:30 01/09/20 07:47 Nacl 0.9% 1000 Ml IV 50 mls/hr DIRECT SHANEL Administration Insulin Human Lispro 0 unit 12/31/19 14:00 01/09/20 09:21 Humalog SUB-Q 3 unit Q4HR SHANEL Administration Protocol Levothyroxine Sodium 88 mcg 12/19/19 06:00 01/09/20 06:27 Synthroid PO 88 mcg QAM@0600 SHANEL Administration Multi-Ingred Cream/Lotion/Oil/Oint 1 applic 12/18/19 12:35 Artificial Tears Ophth Oint OU Q4HR PRN Dry Eye(s) Polyethylene Glycol 17 gm 01/01/20 22:00 01/09/20 06:17 Miralax 3350 PO Not Given QHS SHANEL Potassium Chloride 40 meq 12/29/19 10:00 01/09/20 09:19 Potassium Chloride FEEDTUBE 40 meq QDAY SHANEL Administration Simple Syrup 15 ml 12/19/19 08:29 01/06/20 04:58 Simple Syrup FEEDTUBE 15 ml PRN PRN Administration Hypoglycemia Simple Syrup 30 ml 12/19/19 08:29 Simple Syrup FEEDTUBE PRN PRN Hypoglycemia Sodium Bicarbonate 325 mg 12/19/19 08:29 Sodium Bicarbonate FEEDTUBE PRN PRN For Clogged Feeding Tube Sodium Chloride 10 ml 12/18/19 22:00 01/09/20 09:20 Sodium Chloride Flush Syringe 10 Ml IV 10 ml BID SHANEL Administration Sodium Chloride 10 ml 12/18/19 13:31 Sodium Chloride Flush Syringe 10 Ml IV PRN PRN LINE FLUSH Nutrition/Malnutrition Assess - Dietary Evaluation Nutrition/Malnutrition Findings: Nutrition Notes Start: 12/19/19 08:16 Freq: Status: Active Protocol: Document 01/06/20 15:15 LM (Rec: 01/06/20 15:20 LM [id number]) Nutrition Notes Initial or Follow up Reassessment Current Diagnosis Diabetes,Sepsis,Hypertension, Heart Failure,Respiratory Failure Other Pertinent Diagnosis Suspected COVID-19, pneu Current Diet Vital AF 1.2 at 65ml/hr Labs/Tests Na 150 BUN 25 BG 55 Pertinent Medications Reviewed Height 6 ft 2 in Weight 117 kg [place] Body Weight (kg) 86.36 BMI 33.1 Weight Status Obese Subjective/Other Information TF is at 30ml/hr. RN stated TF will stay at 30ml/hr for now. Percent of energy/protein needs met: 43%/31% Burn Absent Trauma Absent Current % PO Negligible Minimum of two criteria No physical signs of malnutrition #1 Nutrition Diagnosis Inadequate oral intake Diagnosis Progress(for reassessment Continues documentation) Is patient on ventilator? Yes Is Patient Ambulatory and/or Out of Bed No REE-([facility]-confined to bed) 2469.960 Kcal/Kg value to use for calculation 17 Approximate Energy Requirements Using 1989 kcal/Kg Calculation Used for Recommendations Kcal/kg Additional Notes Protein: 172g (>/=2g/kg using IBW 86kg) Fluid 1ml/kcal Nutrition Intervention Change Diet Order: TF Nutrition Support: Vital AF 1.2 at 65ml/hr Flush 300ml q4h for hypernatremia Flush 100ml q4h once resolved Kcal 1,872 Protein (gm) 117 Fluid (mL) 1,265 Goal #1 TF tolerance Goal #2 Meet at least 75% of energy and protein needs Anticipated Discharge Needs: unable to determine at this time Follow-Up By: 01/10/20 Additional Comments F/U for TF/tolerance, goal rate, Na
[2020-01-09] MEDS ORDERED: SODIUM CHLORIDE 0.9% 1000 ML 1,000 ML IV ONE (11:30)
[2020-01-09] MEDS: fentaNYL DRIP Premix 2,000 MCG/100 ML BAG IV SCH (13:33)
--- NOTE | 2020-01-09 14:30 | Progress Note ---
Assessment and Plan - Patient Problems (1) Bradycardia Current Visit: Yes Status: Acute Plan to address problem: Etiology of bradycardia is uncertain, hyponatremia has been corrected, and TSH level is normal at 2.3. He is receiving no concurrent AV estella blocking agents at this time. A persistently elevated vagal tone or vasodepressor reaction is a possible etiology, versus underlying conduction system disease. We have recommended atropine at the bedside to be used as needed for heart rate below 40, otherwise continue supportive management and avoid AV estella blocking agents. Further cardiac management including device therapies will depend on clinical course. (2) Cardiomyopathy Current Visit: Yes Status: Acute Plan to address problem: Echocardiogram reviewed, shows a moderate severity dilated cardiomyopathy with estimated ejection fraction 35 to 40%. We will continue conservative supportive cardiac management at this time until hemodynamics support introduction of guideline directed medical therapies. Subjective Date of service: 01/09/20 Principal diagnosis: Ac. Hypoxemic Resp Failure; Septic Shock; Magdiel. PNA; PUI COVID-19; CHF; JOE Interval history: Patient remains on the vent, sedated, but easily arousable. Patient's hyponatremia has been corrected, currently 134. Despite this, there is persistence of mild, sinus bradycardia. There are no ischemic ST or T wave changes associated with the bradycardia. The patient remains dependent on low- dose dopamine. Objective Vital Signs Temp Pulse Pulse Pulse Resp Resp BP 01/09/20 13:15 56 L 24 01/09/20 12:00 78 108/56 01/09/20 08:00 97.4 F L 01/09/20 07:43 81 78 27 H 160/92 01/09/20 06:00 64 24 88/38 01/09/20 05:30 68 27 H 98/47 01/09/20 05:00 56 L 11 L 139/64 01/09/20 04:43 57 L 122/53 01/09/20 04:30 54 L 24 114/63 01/09/20 04:00 98.0 F 46 L 56 L 24 115/58 01/09/20 03:30 62 24 103/61 01/09/20 03:00 48 L 25 H 111/60 01/09/20 02:30 49 L 24 109/58 01/09/20 02:00 56 L 23 117/63 01/09/20 01:30 48 L 24 102/58 01/09/20 01:00 48 L 24 110/61 01/09/20 00:44 97.9 F 01/09/20 00:30 58 L 24 102/56 01/09/20 00:00 97.9 F 52 L 54 L 24 93/54 01/08/20 23:30 55 L 24 99/54 01/08/20 23:09 51 L 108/54 01/08/20 23:00 53 L 13 111/52 01/08/20 22:30 54 L 20 95/68 01/08/20 22:00 61 14 106/61 01/08/20 21:30 94/48 01/08/20 21:00 57 L 117/80 01/08/20 20:34 117/80 01/08/20 20:30 142/77 01/08/20 20:20 55 L 26 H 01/08/20 20:13 53 L 142/77 01/08/20 20:00 97.8 F 70 52 L 18 104/50 01/08/20 19:30 50 L 14 103/69 01/08/20 19:00 49 L 26 H 120/56 01/08/20 18:30 56 L 25 H 103/69 01/08/20 18:00 55 L 21 114/58 01/08/20 17:30 56 L 26 H 116/58 01/08/20 17:00 56 L 25 H 104/57 01/08/20 16:30 53 L 13 106/70 01/08/20 16:00 98.2 F 59 L 59 L 20 115/55 01/08/20 15:30 53 L 25 H 115/55 01/08/20 15:00 49 L 25 H 110/53 01/08/20 14:30 53 L 20 56/33 Pulse Ox 01/09/20 13:15 01/09/20 12:00 97 01/09/20 08:00 01/09/20 07:43 96 01/09/20 06:00 96 01/09/20 05:30 93 01/09/20 05:00 83 L 01/09/20 04:43 93 01/09/20 04:30 84 01/09/20 04:00 93 01/09/20 03:30 96 01/09/20 03:00 96 01/09/20 02:30 96 01/09/20 02:00 98 01/09/20 01:30 97 01/09/20 01:00 96 01/09/20 00:44 01/09/20 00:30 95 01/09/20 00:00 94 01/08/20 23:30 94 01/08/20 23:09 93 01/08/20 23:00 95 01/08/20 22:30 94 01/08/20 22:00 92 01/08/20 21:30 91 01/08/20 21:00 94 01/08/20 20:34 90 01/08/20 20:30 96 01/08/20 20:20 01/08/20 20:13 95 01/08/20 20:00 96 01/08/20 19:30 95 01/08/20 19:00 94 01/08/20 18:30 95 01/08/20 18:00 97 01/08/20 17:30 96 01/08/20 17:00 95 01/08/20 16:30 94 01/08/20 16:00 95 01/08/20 15:30 93 01/08/20 15:00 91 01/08/20 14:30 90 - Physical Examination General: Other (intubated on the vent) Neck: Positive: neck supple Cardiac: Positive: Regular Rhythm Lungs: Positive: Decreased Breath Sounds Neuro: Positive: Other (Intubated, on the vent) Abdomen: Positive: Soft Skin: Positive: Clear Extremities: Absent: edema - Labs and Meds Comprehensive Metabolic Panel 01/09/20 Range/Units 08:15 Sodium 134 L (137-145) mmol/L Potassium 4.8 (3.6-5.0) mmol/L Chloride 97.6 L (98-107) mmol/L Carbon Dioxide 25 (22-30) mmol/L BUN 25 H (9-20) mg/dL Creatinine 1.1 (0.8-1.5) mg/dL Glucose 240 H (75-100) mg/dL Calcium 8.9 (8.4-10.2) mg/dL - Allied health notes Allied health notes reviewed: nursing
--- NOTE | 2020-01-09 16:43 | Progress Note ---
Assessment and Plan Acute Hypoxemic Respiratory Failure Severe Sepsis with Shock Bilateral Pneumonia PUI COVID-19 Morbid Obesity H/O CHF JOE - Suiregery consult placed for tracheostomy +/- PEG - no new issues; continue care as below otherwise; - continue bowel regimen (abdomen softer) - keep peep at 8 cm H2O re: bibasilar atelectasis - continue to wean vasopressors for MAP > 65 mmHg - prn CXR's & ABG's at this point - Daily SAT and SBT assessment as tolerated - accuchecks with glycemic control per SSI (While critically ill target blood glucose of 140-180 mg/dL; avoid hypoglycemia) - sedation for target RASS 0 to -1 - continue to wean supplemental oxygen for target O2 sat's > 92% acutely - continue bronchodilators with pulmonary hygiene per RT - VAP bundle addressed - lung protective strategies - wean per pulmonary driven protocols otherwise - continue to avoid benzodiazepine's, reduce the possibility of delirium - adjust AB's per ID rec's - prn analgesia per CPOT score - Maintenance of sleep-wake cycle - continue to avoid benzodiazepine's, reduce the possibility of delirium - continue enteral nutritional support at goal rate as tolerated - G.I. & VTE prophylaxis - PT/OT/ROM exercises - continue mobility protocols for pressure ulcer prophylaxis - repeat COVID-19 test negative - continue aspiration precautions - continue accuchecks with glycemic control per SSI (While critically ill target blood glucose of 140-180 mg/dL; avoid hypoglycemia) - Monitor hemodynamics closely - continue other care per attending / other consultants - discharge planning ongoing concurrently - LTAC evaluation requested .... Re-evaluate in am & prn CONDITION: CRITICAL PROGNOSIS: GUARDED CODE STATUS: FULL CODE The high probability of a clinically significant, sudden or life-threatening deterioration of the [respiratory, cardiovascular, GI & neurologic] system(s) required my full and direct attention, intervention and personal management. The aggregate critical care time was [32] minutes without overlap. Time includes spent on; [x] Data Review and interpretation [x] Patient assessment and monitoring of vital signs [x] Documentation [x] Medication orders and management Subjective Date of service: 01/09/20 Principal diagnosis: Ac. Hypoxemic Resp Failure; Septic Shock; Magdiel. PNA; PUI COVID-19; CHF; JOE Interval history: Patient is seen today for: Acute Hypoxemic Respiratory Failure; Severe Sepsis with Shock; Bilateral Pneumonia; PUI COVID-19; Morbid Obesity; H/O CHF; JOE Seen and examined at bedside; 24hour events reviewed; nursing and respiratory care staff consulted; no adverse overnight events reported to me; resting peacefully in bed; remains on full MVS with peep at 8 and FiO2 increased to 50% overnight; also received a bolus of 1 liter IVNS total re: hypotension; AMS is persistent Objective Vital Signs - 12hr 01/09/20 01/09/20 01/09/20 04:43 05:00 05:30 Temperature Pulse Rate 57 L 56 L 68 Pulse Rate [ Bilateral] Pulse Rate [ From Monitor] Respiratory 11 L 27 H Rate Respiratory Rate [Bilateral ] Blood Pressure 122/53 139/64 98/47 O2 Sat by Pulse 93 83 L 93 Oximetry 01/09/20 01/09/20 01/09/20 06:00 06:30 07:00 Temperature Pulse Rate 64 62 57 L Pulse Rate [ Bilateral] Pulse Rate [ From Monitor] Respiratory 24 24 25 H Rate Respiratory Rate [Bilateral ] Blood Pressure 88/38 96/47 88/46 O2 Sat by Pulse 96 98 99 Oximetry 01/09/20 01/09/20 01/09/20 07:30 07:43 08:00 Temperature 97.4 F L Pulse Rate 51 L 81 79 Pulse Rate [ 78 Bilateral] Pulse Rate [ 79 From Monitor] Respiratory 24 24 Rate Respiratory 27 H Rate [Bilateral ] Blood Pressure 86/46 160/92 160/92 O2 Sat by Pulse 97 96 97 Oximetry 01/09/20 01/09/20 01/09/20 08:30 09:00 09:30 Temperature Pulse Rate 70 65 48 L Pulse Rate [ Bilateral] Pulse Rate [ From Monitor] Respiratory 13 18 10 L Rate Respiratory Rate [Bilateral ] Blood Pressure 139/80 144/76 O2 Sat by Pulse 100 87 100 Oximetry 01/09/20 01/09/20 01/09/20 10:00 10:30 11:00 Temperature Pulse Rate 65 68 69 Pulse Rate [ Bilateral] Pulse Rate [ From Monitor] Respiratory 17 16 13 Rate Respiratory Rate [Bilateral ] Blood Pressure 129/68 127/56 108/61 O2 Sat by Pulse 93 96 96 Oximetry 01/09/20 01/09/20 01/09/20 11:30 12:00 12:30 Temperature Pulse Rate 76 77 62 Pulse Rate [ Bilateral] Pulse Rate [ 77 From Monitor] Respiratory 21 25 H 17 Rate Respiratory Rate [Bilateral ] Blood Pressure 108/56 108/56 114/65 O2 Sat by Pulse 81 L 92 93 Oximetry 01/09/20 01/09/20 01/09/20 13:00 13:15 13:30 Temperature Pulse Rate 58 L 60 Pulse Rate [ 56 L Bilateral] Pulse Rate [ From Monitor] Respiratory 24 24 Rate Respiratory 24 Rate [Bilateral ] Blood Pressure 104/49 91/46 O2 Sat by Pulse 93 97 Oximetry 01/09/20 01/09/20 01/09/20 14:00 14:30 15:00 Temperature Pulse Rate 43 L 49 L 41 L Pulse Rate [ Bilateral] Pulse Rate [ From Monitor] Respiratory 24 12 24 Rate Respiratory Rate [Bilateral ] Blood Pressure 121/54 123/54 117/55 O2 Sat by Pulse 93 94 96 Oximetry 01/09/20 15:30 Temperature Pulse Rate 47 L Pulse Rate [ Bilateral] Pulse Rate [ From Monitor] Respiratory Rate Respiratory Rate [Bilateral ] Blood Pressure 109/56 O2 Sat by Pulse 94 Oximetry Constitutional: other (elderly obese AAM with mildly increrased respiratory effort at rest on MVS) Eyes: non-icteric ENT: oropharynx moist, other (ETT 24 cm KOLBY) Neck: supple, no lymphadenopathy, no JVD Effort: mildly labored Ascultation: Bilateral: diminished breath sounds, rhonchi, other (diminished bibasilar air entry) Percussion: Bilateral: not dull Cardiovascular: regular rate and rhythm, other (S1,S2) Gastrointestinal: normoactive bowel sounds, soft, non-tender, other (protuberan t) Integumentary: rash (stasis dermatyitis) Extremities: no cyanosis, pink and warm, pulses normal, no ischemia or petechiae, edema (trace) Neurologic: normal mental status, non-focal exam, pupils equal and round, CN II- XII normal, motor strength normal and (obeys simple commands) Psychiatric: other (unable to assess re: AQMS) CBC and BMP: 01/08/20 08:03 01/09/20 08:15 ABG, PT/INR, D-dimer: ABG ABG pH 7.414 pH Units (7.350-7.450) 01/08/20 05:27 ABG pCO2 42.3 mm Hg 01/08/20 05:27 ABG pO2 67.8 mm Hg (80.0-90.0) L 01/08/20 05:27 ABG O2 Saturation 93.2 % (95.0-99.0) L 01/08/20 05:27 PT/INR, D-dimer PT 14.0 Sec. (12.2-14.9) 12/18/19 14:45 INR 1.10 (0.87-1.13) 12/18/19 14:45 D-Dimer 534.45 ng/mlDDU (0-234) H 12/18/19 14:45 Abnormal lab findings: Abnormal Labs 12/18/19 12/18/19 12/18/19 12:23 14:45 14:45 WBC RBC Hgb 10.4 L Hct 35.2 L MCV MCH 25 L MCHC 30 L RDW 18.8 H Plt Count Lymph % (Auto) [place] % (Auto) 11.6 H Eos % (Auto) 4.8 H Lymph # [place] # 1.0 H Eos # Seg Neutrophils % Monocytes % (Manual) Monocytes # (Manual) D-Dimer ABG pH ABG pO2 ABG HCO3 ABG O2 Saturation ABG Base Excess ABG Hemoglobin Oxyhemoglobin Sodium Potassium Chloride Carbon Dioxide BUN Creatinine Glucose POC Glucose 328 H Lactic Acid Calcium Magnesium AST ALT Lactate Dehydrogenase Total Creatine Kinase 40 L C-Reactive Protein Albumin Urine WBC (Auto) Urine Total Protein Digoxin Salicylates Acetaminophen 12/18/19 12/18/19 12/18/19 14:45 14:45 14:45 WBC RBC Hgb Hct MCV MCH MCHC RDW Plt Count Lymph % (Auto) [place] % (Auto) Eos % (Auto) Lymph # [place] # Eos # Seg Neutrophils % Monocytes % (Manual) Monocytes # (Manual) D-Dimer 534.45 H ABG pH ABG pO2 ABG HCO3 ABG O2 Saturation ABG Base Excess ABG Hemoglobin Oxyhemoglobin Sodium 156 H Potassium Chloride 112.3 H Carbon Dioxide 31 H BUN 32 H Creatinine Glucose 328 H POC Glucose Lactic Acid Calcium Magnesium AST ALT Lactate Dehydrogenase 235 H Total Creatine Kinase C-Reactive Protein 8.50 H Albumin 3.6 L Urine WBC (Auto) Urine Total Protein Digoxin 0.3 L Salicylates < 0.3 L Acetaminophen 12/18/19 12/18/19 12/18/19 14:45 14:45 16:00 WBC RBC Hgb Hct MCV MCH MCHC RDW Plt Count Lymph % (Auto) [place] % (Auto) Eos % (Auto) Lymph # [place] # Eos # Seg Neutrophils % Monocytes % (Manual) Monocytes # (Manual) D-Dimer ABG pH ABG pO2 69.8 L ABG HCO3 31.8 H ABG O2 Saturation ABG Base Excess 5.4 H ABG Hemoglobin 10.0 L Oxyhemoglobin 92.9 L Sodium Potassium Chloride Carbon Dioxide BUN Creatinine Glucose 314 H POC Glucose Lactic Acid Calcium Magnesium AST ALT Lactate Dehydrogenase 236 H Total Creatine Kinase C-Reactive Protein 8.40 H Albumin Urine WBC (Auto) Urine Total Protein Digoxin Salicylates Acetaminophen < 5.0 L 12/18/19 12/18/19 12/18/19 16:35 18:30 22:56 WBC RBC Hgb Hct MCV MCH MCHC RDW Plt Count Lymph % (Auto) [place] % (Auto) Eos % (Auto) Lymph # [place] # Eos # Seg Neutrophils % Monocytes % (Manual) Monocytes # (Manual) D-Dimer ABG pH ABG pO2 ABG HCO3 ABG O2 Saturation ABG Base Excess ABG Hemoglobin Oxyhemoglobin Sodium Potassium Chloride Carbon Dioxide BUN Creatinine Glucose POC Glucose 310 H 353 H Lactic Acid 2.50 H* Calcium Magnesium AST ALT Lactate Dehydrogenase Total Creatine Kinase C-Reactive Protein Albumin Urine WBC (Auto) Urine Total Protein Digoxin Salicylates Acetaminophen 12/19/19 12/19/19 12/19/19 04:13 04:13 06:00 WBC RBC Hgb 10.0 L Hct 34.2 L MCV MCH 25 L MCHC 29 L RDW 19.0 H Plt Count Lymph % (Auto) [place] % (Auto) 10.1 H Eos % (Auto) Lymph # [place] # 1.1 H Eos # Seg Neutrophils % 71.8 H Monocytes % (Manual) Monocytes # (Manual) D-Dimer ABG pH ABG pO2 186.5 H ABG HCO3 27.8 H ABG O2 Saturation 99.1 H ABG Base Excess ABG Hemoglobin 10.4 L Oxyhemoglobin Sodium 157 H Potassium Chloride 119.1 H Carbon Dioxide BUN 26 H Creatinine Glucose 302 H POC Glucose Lactic Acid Calcium 7.9 L Magnesium AST 85 H ALT 61 H Lactate Dehydrogenase Total Creatine Kinase C-Reactive Protein Albumin 3.0 L Urine WBC (Auto) Urine Total Protein Digoxin Salicylates Acetaminophen 06/12/19/19 12/19/19 08:30 11:55 16:50 WBC RBC Hgb Hct MCV MCH MCHC RDW Plt Count Lymph % (Auto) [place] % (Auto) Eos % (Auto) Lymph # [place] # Eos # Seg Neutrophils % Monocytes % (Manual) Monocytes # (Manual) D-Dimer ABG pH ABG pO2 ABG HCO3 ABG O2 Saturation ABG Base Excess ABG Hemoglobin Oxyhemoglobin Sodium Potassium Chloride Carbon Dioxide BUN Creatinine Glucose POC Glucose 264 H 251 H Lactic Acid Calcium Magnesium AST ALT Lactate Dehydrogenase Total Creatine Kinase C-Reactive Protein Albumin Urine WBC (Auto) 7.0 H Urine Total Protein Digoxin Salicylates Acetaminophen 12/19/19 12/19/19 12/20/19 17:41 23:42 03:35 WBC RBC Hgb Hct MCV MCH MCHC RDW Plt Count Lymph % (Auto) [place] % (Auto) Eos % (Auto) Lymph # [place] # Eos # Seg Neutrophils % Monocytes % (Manual) Monocytes # (Manual) D-Dimer ABG pH ABG pO2 ABG HCO3 27.7 H ABG O2 Saturation ABG Base Excess ABG Hemoglobin 11.6 L Oxyhemoglobin 94.9 L Sodium Potassium Chloride Carbon Dioxide BUN Creatinine Glucose POC Glucose 180 H 205 H Lactic Acid Calcium Magnesium AST ALT Lactate Dehydrogenase Total Creatine Kinase C-Reactive Protein Albumin Urine WBC (Auto) Urine Total Protein Digoxin Salicylates Acetaminophen 12/20/19 12/20/19 12/20/19 04:45 04:45 05:27 WBC RBC Hgb 9.4 L Hct 31.4 L MCV MCH 25 L MCHC 30 L RDW 19.4 H Plt Count Lymph % (Auto) [place] % (Auto) 10.2 H Eos % (Auto) 6.0 H Lymph # 0.9 L [place] # Eos # Seg Neutrophils % Monocytes % (Manual) Monocytes # (Manual) D-Dimer ABG pH ABG pO2 ABG HCO3 ABG O2 Saturation ABG Base Excess ABG Hemoglobin Oxyhemoglobin Sodium 153 H Potassium Chloride 114.6 H Carbon Dioxide BUN Creatinine Glucose 170 H POC Glucose 188 H Lactic Acid Calcium 7.9 L Magnesium AST ALT Lactate Dehydrogenase Total Creatine Kinase C-Reactive Protein Albumin Urine WBC (Auto) Urine Total Protein Digoxin Salicylates Acetaminophen 12/20/19 12/20/19 12/21/19 12:26 18:20 00:20 WBC RBC Hgb Hct MCV MCH MCHC RDW Plt Count Lymph % (Auto) [place] % (Auto) Eos % (Auto) Lymph # [place] # Eos # Seg Neutrophils % Monocytes % (Manual) Monocytes # (Manual) D-Dimer ABG pH ABG pO2 ABG HCO3 ABG O2 Saturation ABG Base Excess ABG Hemoglobin Oxyhemoglobin Sodium Potassium Chloride Carbon Dioxide BUN Creatinine Glucose POC Glucose 200 H 263 H 218 H Lactic Acid Calcium Magnesium AST ALT Lactate Dehydrogenase Total Creatine Kinase C-Reactive Protein Albumin Urine WBC (Auto) Urine Total Protein Digoxin Salicylates Acetaminophen 12/21/19 12/21/19 12/21/19 04:38 05:26 12:35 WBC RBC Hgb Hct MCV MCH MCHC RDW Plt Count Lymph % (Auto) [place] % (Auto) Eos % (Auto) Lymph # [place] # Eos # Seg Neutrophils % Monocytes % (Manual) Monocytes # (Manual) D-Dimer ABG pH ABG pO2 ABG HCO3 ABG O2 Saturation ABG Base Excess ABG Hemoglobin Oxyhemoglobin Sodium 149 H Potassium 3.5 L Chloride 110.5 H Carbon Dioxide BUN Creatinine Glucose 158 H POC Glucose 193 H 193 H Lactic Acid Calcium Magnesium AST ALT Lactate Dehydrogenase Total Creatine Kinase C-Reactive Protein Albumin Urine WBC (Auto) Urine Total Protein Digoxin Salicylates Acetaminophen 12/21/19 12/22/19 12/22/19 18:29 00:03 05:15 WBC RBC Hgb 10.3 L Hct 34.7 L MCV MCH 25 L MCHC 30 L RDW 19.4 H Plt Count Lymph % (Auto) 9.0 L [place] % (Auto) 12.3 H Eos % (Auto) 5.0 H Lymph # 0.5 L [place] # Eos # Seg Neutrophils % 73.2 H Monocytes % (Manual) Monocytes # (Manual) D-Dimer ABG pH ABG pO2 ABG HCO3 ABG O2 Saturation ABG Base Excess ABG Hemoglobin Oxyhemoglobin Sodium Potassium Chloride Carbon Dioxide BUN Creatinine Glucose POC Glucose 186 H 143 H Lactic Acid Calcium Magnesium AST ALT Lactate Dehydrogenase Total Creatine Kinase C-Reactive Protein Albumin Urine WBC (Auto) Urine Total Protein Digoxin Salicylates Acetaminophen 12/22/19 12/22/19 12/22/19 05:15 06:02 12:13 WBC RBC Hgb Hct MCV MCH MCHC RDW Plt Count Lymph % (Auto) [place] % (Auto) Eos % (Auto) Lymph # [place] # Eos # Seg Neutrophils % Monocytes % (Manual) Monocytes # (Manual) D-Dimer ABG pH ABG pO2 ABG HCO3 ABG O2 Saturation ABG Base Excess ABG Hemoglobin Oxyhemoglobin Sodium 152 H Potassium Chloride 113.5 H Carbon Dioxide BUN Creatinine Glucose 126 H POC Glucose 144 H 159 H Lactic Acid Calcium Magnesium AST ALT Lactate Dehydrogenase Total Creatine Kinase C-Reactive Protein Albumin Urine WBC (Auto) Urine Total Protein Digoxin Salicylates Acetaminophen 12/22/19 12/22/19 12/23/19 18:03 23:50 05:27 WBC RBC Hgb Hct MCV MCH MCHC RDW Plt Count Lymph % (Auto) [place] % (Auto) Eos % (Auto) Lymph # [place] # Eos # Seg Neutrophils % Monocytes % (Manual) Monocytes # (Manual) D-Dimer ABG pH ABG pO2 ABG HCO3 ABG O2 Saturation ABG Base Excess ABG Hemoglobin Oxyhemoglobin Sodium Potassium Chloride Carbon Dioxide BUN Creatinine Glucose POC Glucose 140 H 227 H 185 H Lactic Acid Calcium Magnesium AST ALT Lactate Dehydrogenase Total Creatine Kinase C-Reactive Protein Albumin Urine WBC (Auto) Urine Total Protein Digoxin Salicylates Acetaminophen 12/23/19 12/23/19 12/23/19 12:13 16:05 16:40 WBC RBC Hgb Hct MCV MCH MCHC RDW Plt Count Lymph % (Auto) [place] % (Auto) Eos % (Auto) Lymph # [place] # Eos # Seg Neutrophils % Monocytes % (Manual) Monocytes # (Manual) D-Dimer ABG pH 7.259 L ABG pO2 76.2 L ABG HCO3 30.6 H ABG O2 Saturation 94.6 L ABG Base Excess ABG Hemoglobin 11.5 L Oxyhemoglobin 92.2 L Sodium 163 H* D Potassium 3.4 L Chloride 120.1 H Carbon Dioxide BUN Creatinine Glucose 162 H POC Glucose 132 H Lactic Acid Calcium Magnesium AST ALT Lactate Dehydrogenase Total Creatine Kinase C-Reactive Protein Albumin Urine WBC (Auto) Urine Total Protein Digoxin Salicylates Acetaminophen 12/23/19 12/24/19 12/24/19 17:53 00:48 04:20 WBC RBC Hgb Hct MCV MCH MCHC RDW Plt Count Lymph % (Auto) [place] % (Auto) Eos % (Auto) Lymph # [place] # Eos # Seg Neutrophils % Monocytes % (Manual) Monocytes # (Manual) D-Dimer ABG pH ABG pO2 ABG HCO3 30.4 H ABG O2 Saturation ABG Base Excess 3.9 H ABG Hemoglobin 10.3 L Oxyhemoglobin 94.4 L Sodium Potassium Chloride Carbon Dioxide BUN Creatinine Glucose POC Glucose 180 H 174 H Lactic Acid Calcium Magnesium AST ALT Lactate Dehydrogenase Total Creatine Kinase C-Reactive Protein Albumin Urine WBC (Auto) Urine Total Protein Digoxin Salicylates Acetaminophen 12/24/19 12/24/19 12/24/19 04:53 04:53 11:50 WBC RBC Hgb 9.7 L Hct 33.2 L MCV MCH 25 L MCHC 29 L RDW 20.1 H Plt Count Lymph % (Auto) [place] % (Auto) Eos % (Auto) Lymph # [place] # Eos # Seg Neutrophils % Monocytes % (Manual) 15.0 H Monocytes # (Manual) 0.9 H D-Dimer ABG pH ABG pO2 ABG HCO3 ABG O2 Saturation ABG Base Excess ABG Hemoglobin Oxyhemoglobin Sodium 163 H* Potassium 3.2 L Chloride 122.6 H Carbon Dioxide BUN Creatinine Glucose 168 H POC Glucose 190 H Lactic Acid Calcium Magnesium AST ALT Lactate Dehydrogenase Total Creatine Kinase C-Reactive Protein Albumin Urine WBC (Auto) Urine Total Protein Digoxin Salicylates Acetaminophen 12/24/19 12/24/19 12/24/19 15:00 16:28 21:15 WBC RBC Hgb Hct MCV MCH MCHC RDW Plt Count Lymph % (Auto) [place] % (Auto) Eos % (Auto) Lymph # [place] # Eos # Seg Neutrophils % Monocytes % (Manual) Monocytes # (Manual) D-Dimer ABG pH ABG pO2 ABG HCO3 ABG O2 Saturation ABG Base Excess ABG Hemoglobin Oxyhemoglobin Sodium 165 H* D 163 H* Potassium Chloride Carbon Dioxide BUN Creatinine Glucose POC Glucose 160 H Lactic Acid Calcium Magnesium AST ALT Lactate Dehydrogenase Total Creatine Kinase C-Reactive Protein Albumin Urine WBC (Auto) Urine Total Protein Digoxin Salicylates Acetaminophen 12/25/19 12/25/19 12/25/19 00:31 05:38 05:46 WBC RBC Hgb 9.7 L Hct 32.5 L MCV MCH 25 L MCHC 30 L RDW 19.4 H Plt Count Lymph % (Auto) [place] % (Auto) Eos % (Auto) Lymph # [place] # Eos # Seg Neutrophils % Monocytes % (Manual) Monocytes # (Manual) D-Dimer ABG pH ABG pO2 ABG HCO3 ABG O2 Saturation ABG Base Excess ABG Hemoglobin Oxyhemoglobin Sodium Potassium Chloride Carbon Dioxide BUN Creatinine Glucose POC Glucose 182 H 194 H Lactic Acid Calcium Magnesium AST ALT Lactate Dehydrogenase Total Creatine Kinase C-Reactive Protein Albumin Urine WBC (Auto) Urine Total Protein Digoxin Salicylates Acetaminophen 12/25/19 12/25/19 12/25/19 05:46 11:35 11:38 WBC RBC Hgb Hct MCV MCH MCHC RDW Plt Count Lymph % (Auto) [place] % (Auto) Eos % (Auto) Lymph # [place] # Eos # Seg Neutrophils % Monocytes % (Manual) Monocytes # (Manual) D-Dimer ABG pH 7.330 L ABG pO2 65.7 L ABG HCO3 32.6 H ABG O2 Saturation 92.5 L ABG Base Excess 5.3 H ABG Hemoglobin 10.4 L Oxyhemoglobin 90.0 L Sodium 166 H* Potassium 2.9 L* Chloride 124.5 H Carbon Dioxide BUN Creatinine Glucose 190 H POC Glucose 192 H Lactic Acid Calcium Magnesium AST ALT Lactate Dehydrogenase Total Creatine Kinase C-Reactive Protein Albumin Urine WBC (Auto) Urine Total Protein Digoxin Salicylates Acetaminophen 12/25/19 12/25/19 12/25/19 13:01 16:45 17:20 WBC RBC Hgb Hct MCV MCH MCHC RDW Plt Count Lymph % (Auto) [place] % (Auto) Eos % (Auto) Lymph # [place] # Eos # Seg Neutrophils % Monocytes % (Manual) Monocytes # (Manual) D-Dimer ABG pH 7.296 L ABG pO2 101.5 H ABG HCO3 33.2 H ABG O2 Saturation ABG Base Excess 5.3 H ABG Hemoglobin 9.6 L Oxyhemoglobin 94.6 L Sodium 174 H* Potassium Chloride Carbon Dioxide BUN Creatinine Glucose POC Glucose Lactic Acid Calcium Magnesium AST ALT Lactate Dehydrogenase Total Creatine Kinase C-Reactive Protein Albumin Urine WBC (Auto) Urine Total Protein < 4 L Digoxin Salicylates Acetaminophen 12/25/19 12/25/19 12/26/19 17:48 18:50 00:43 WBC RBC Hgb Hct MCV MCH MCHC RDW Plt Count Lymph % (Auto) [place] % (Auto) Eos % (Auto) Lymph # [place] # Eos # Seg Neutrophils % Monocytes % (Manual) Monocytes # (Manual) D-Dimer ABG pH ABG pO2 ABG HCO3 ABG O2 Saturation ABG Base Excess ABG Hemoglobin Oxyhemoglobin Sodium 166 H* 164 H* Potassium Chloride 127.3 H Carbon Dioxide BUN Creatinine Glucose 220 H POC Glucose 252 H Lactic Acid Calcium Magnesium AST ALT Lactate Dehydrogenase Total Creatine Kinase C-Reactive Protein Albumin Urine WBC (Auto) Urine Total Protein Digoxin Salicylates Acetaminophen 12/26/19 12/26/19 12/26/19 05:31 08:07 08:07 WBC 4.3 L RBC Hgb 9.6 L Hct 32.1 L MCV MCH 26 L MCHC 30 L RDW 20.5 H Plt Count Lymph % (Auto) [place] % (Auto) Eos % (Auto) Lymph # [place] # Eos # Seg Neutrophils % Monocytes % (Manual) Monocytes # (Manual) D-Dimer ABG pH ABG pO2 ABG HCO3 ABG O2 Saturation ABG Base Excess ABG Hemoglobin Oxyhemoglobin Sodium 162 H* Potassium Chloride 122.1 H Carbon Dioxide BUN Creatinine Glucose 247 H POC Glucose 187 H Lactic Acid Calcium Magnesium AST ALT Lactate Dehydrogenase Total Creatine Kinase C-Reactive Protein Albumin Urine WBC (Auto) Urine Total Protein Digoxin Salicylates Acetaminophen 12/26/19 12/26/19 12/26/19 08:07 12:20 16:25 WBC RBC Hgb Hct MCV MCH MCHC RDW Plt Count Lymph % (Auto) [place] % (Auto) Eos % (Auto) Lymph # [place] # Eos # Seg Neutrophils % Monocytes % (Manual) Monocytes # (Manual) D-Dimer ABG pH 7.290 L ABG pO2 73.2 L ABG HCO3 33.2 H ABG O2 Saturation 94.9 L ABG Base Excess 5.2 H ABG Hemoglobin 10.0 L Oxyhemoglobin 92.5 L Sodium 159 H Potassium Chloride Carbon Dioxide BUN Creatinine Glucose POC Glucose 234 H Lactic Acid Calcium Magnesium AST ALT Lactate Dehydrogenase Total Creatine Kinase C-Reactive Protein Albumin Urine WBC (Auto) Urine Total Protein Digoxin Salicylates Acetaminophen 12/26/19 12/26/19 12/26/19 17:33 22:35 23:30 WBC RBC Hgb Hct MCV MCH MCHC RDW Plt Count Lymph % (Auto) [place] % (Auto) Eos % (Auto) Lymph # [place] # Eos # Seg Neutrophils % Monocytes % (Manual) Monocytes # (Manual) D-Dimer ABG pH ABG pO2 ABG HCO3 ABG O2 Saturation ABG Base Excess ABG Hemoglobin Oxyhemoglobin Sodium Potassium Chloride Carbon Dioxide BUN Creatinine Glucose POC Glucose 244 H 208 H 287 H Lactic Acid Calcium Magnesium AST ALT Lactate Dehydrogenase Total Creatine Kinase C-Reactive Protein Albumin Urine WBC (Auto) Urine Total Protein Digoxin Salicylates Acetaminophen 12/27/19 12/27/19 12/27/19 03:48 03:48 03:48 WBC RBC Hgb 10.1 L Hct 35.4 L MCV MCH 25 L MCHC 29 L RDW 20.1 H Plt Count Lymph % (Auto) [place] % (Auto) Eos % (Auto) Lymph # [place] # Eos # Seg Neutrophils % Monocytes % (Manual) Monocytes # (Manual) D-Dimer ABG pH ABG pO2 ABG HCO3 ABG O2 Saturation ABG Base Excess ABG Hemoglobin Oxyhemoglobin Sodium 160 H Potassium Chloride 118.8 H Carbon Dioxide 33 H BUN Creatinine Glucose 217 H POC Glucose Lactic Acid Calcium Magnesium 2.70 H AST ALT Lactate Dehydrogenase Total Creatine Kinase C-Reactive Protein Albumin Urine WBC (Auto) Urine Total Protein Digoxin Salicylates Acetaminophen 12/27/19 12/27/19 12/27/19 05:50 11:58 16:05 WBC RBC Hgb Hct MCV MCH MCHC RDW Plt Count Lymph % (Auto) [place] % (Auto) Eos % (Auto) Lymph # [place] # Eos # Seg Neutrophils % Monocytes % (Manual) Monocytes # (Manual) D-Dimer ABG pH 7.180 L* ABG pO2 73.6 L ABG HCO3 34.8 H ABG O2 Saturation 92.7 L ABG Base Excess 3.8 H ABG Hemoglobin 12.0 L Oxyhemoglobin 90.2 L Sodium Potassium Chloride Carbon Dioxide BUN Creatinine Glucose POC Glucose 224 H 218 H Lactic Acid Calcium Magnesium AST ALT Lactate Dehydrogenase Total Creatine Kinase C-Reactive Protein Albumin Urine WBC (Auto) Urine Total Protein Digoxin Salicylates Acetaminophen 12/27/19 12/27/19 12/27/19 18:05 19:50 21:53 WBC RBC Hgb Hct MCV MCH MCHC RDW Plt Count Lymph % (Auto) [place] % (Auto) Eos % (Auto) Lymph # [place] # Eos # Seg Neutrophils % Monocytes % (Manual) Monocytes # (Manual) D-Dimer ABG pH 7.328 L ABG pO2 49.9 L ABG HCO3 33.3 H ABG O2 Saturation 87.1 L ABG Base Excess 5.7 H ABG Hemoglobin 11.2 L Oxyhemoglobin 84.8 L Sodium Potassium Chloride Carbon Dioxide BUN Creatinine Glucose POC Glucose 214 H 178 H Lactic Acid Calcium Magnesium AST ALT Lactate Dehydrogenase Total Creatine Kinase C-Reactive Protein Albumin Urine WBC (Auto) Urine Total Protein Digoxin Salicylates Acetaminophen 12/28/19 12/28/19 12/28/19 00:42 04:37 04:37 WBC RBC Hgb 9.8 L Hct 33.5 L MCV MCH 25 L MCHC 29 L RDW 21.1 H Plt Count Lymph % (Auto) [place] % (Auto) Eos % (Auto) Lymph # [place] # Eos # Seg Neutrophils % Monocytes % (Manual) Monocytes # (Manual) D-Dimer ABG pH ABG pO2 ABG HCO3 ABG O2 Saturation ABG Base Excess ABG Hemoglobin Oxyhemoglobin Sodium 157 H Potassium 3.4 L Chloride 117.5 H Carbon Dioxide BUN Creatinine Glucose 193 H POC Glucose 157 H Lactic Acid Calcium Magnesium AST ALT Lactate Dehydrogenase Total Creatine Kinase C-Reactive Protein Albumin Urine WBC (Auto) Urine Total Protein Digoxin Salicylates Acetaminophen 12/28/19 12/28/19 12/28/19 04:52 05:19 12:05 WBC RBC Hgb Hct MCV MCH MCHC RDW Plt Count Lymph % (Auto) [place] % (Auto) Eos % (Auto) Lymph # [place] # Eos # Seg Neutrophils % Monocytes % (Manual) Monocytes # (Manual) D-Dimer ABG pH ABG pO2 51.7 L ABG HCO3 28.7 H ABG O2 Saturation 89.9 L ABG Base Excess 4.1 H ABG Hemoglobin 9.7 L Oxyhemoglobin 87.7 L Sodium Potassium Chloride Carbon Dioxide BUN Creatinine Glucose POC Glucose 202 H 248 H Lactic Acid Calcium Magnesium AST ALT Lactate Dehydrogenase Total Creatine Kinase C-Reactive Protein Albumin Urine WBC (Auto) Urine Total Protein Digoxin Salicylates Acetaminophen 12/28/19 12/28/19 12/28/19 18:11 21:15 23:22 WBC RBC Hgb Hct MCV MCH MCHC RDW Plt Count Lymph % (Auto) [place] % (Auto) Eos % (Auto) Lymph # [place] # Eos # Seg Neutrophils % Monocytes % (Manual) Monocytes # (Manual) D-Dimer ABG pH ABG pO2 ABG HCO3 ABG O2 Saturation ABG Base Excess ABG Hemoglobin Oxyhemoglobin Sodium Potassium Chloride Carbon Dioxide BUN Creatinine Glucose POC Glucose 226 H 217 H 227 H Lactic Acid Calcium Magnesium AST ALT Lactate Dehydrogenase Total Creatine Kinase C-Reactive Protein Albumin Urine WBC (Auto) Urine Total Protein Digoxin Salicylates Acetaminophen 12/29/19 12/29/19 12/29/19 04:09 04:59 04:59 WBC 11.1 H RBC Hgb 9.3 L Hct 31.1 L MCV 81 L MCH 24 L MCHC 30 L RDW 19.9 H Plt Count Lymph % (Auto) [place] % (Auto) Eos % (Auto) Lymph # [place] # Eos # Seg Neutrophils % Monocytes % (Manual) Monocytes # (Manual) D-Dimer ABG pH 7.473 H ABG pO2 126.1 H ABG HCO3 29.2 H ABG O2 Saturation ABG Base Excess 5.1 H ABG Hemoglobin 8.4 L Oxyhemoglobin Sodium 157 H Potassium 3.2 L Chloride 118.2 H Carbon Dioxide BUN Creatinine 1.7 H Glucose 229 H POC Glucose Lactic Acid Calcium Magnesium AST ALT Lactate Dehydrogenase Total Creatine Kinase C-Reactive Protein Albumin Urine WBC (Auto) Urine Total Protein Digoxin Salicylates Acetaminophen 12/29/19 12/29/19 12/29/19 05:15 12:13 17:59 WBC RBC Hgb Hct MCV MCH MCHC RDW Plt Count Lymph % (Auto) [place] % (Auto) Eos % (Auto) Lymph # [place] # Eos # Seg Neutrophils % Monocytes % (Manual) Monocytes # (Manual) D-Dimer ABG pH ABG pO2 ABG HCO3 ABG O2 Saturation ABG Base Excess ABG Hemoglobin Oxyhemoglobin Sodium Potassium Chloride Carbon Dioxide BUN Creatinine Glucose POC Glucose 221 H 392 H 365 H Lactic Acid Calcium Magnesium AST ALT Lactate Dehydrogenase Total Creatine Kinase C-Reactive Protein Albumin Urine WBC (Auto) Urine Total Protein Digoxin Salicylates Acetaminophen 12/29/19 12/29/19 12/30/19 20:25 23:38 04:45 WBC RBC Hgb Hct MCV MCH MCHC RDW Plt Count Lymph % (Auto) [place] % (Auto) Eos % (Auto) Lymph # [place] # Eos # Seg Neutrophils % Monocytes % (Manual) Monocytes # (Manual) D-Dimer ABG pH 7.261 L 7.343 L ABG pO2 60.3 L 54.3 L ABG HCO3 32.1 H 30.9 H ABG O2 Saturation 87.6 L 88.3 L ABG Base Excess 3.7 H 4.0 H ABG Hemoglobin 9.7 L 11.6 L Oxyhemoglobin 85.2 L 86.0 L Sodium Potassium Chloride Carbon Dioxide BUN Creatinine Glucose POC Glucose 402 H Lactic Acid Calcium Magnesium AST ALT Lactate Dehydrogenase Total Creatine Kinase C-Reactive Protein Albumin Urine WBC (Auto) Urine Total Protein Digoxin Salicylates Acetaminophen 12/30/19 12/30/19 12/30/19 05:06 05:06 05:06 WBC 11.7 H RBC Hgb 9.4 L Hct 32.4 L MCV 83 L MCH 24 L MCHC 29 L RDW 20.2 H Plt Count Lymph % (Auto) [place] % (Auto) Eos % (Auto) Lymph # [place] # Eos # Seg Neutrophils % Monocytes % (Manual) Monocytes # (Manual) D-Dimer ABG pH ABG pO2 ABG HCO3 ABG O2 Saturation ABG Base Excess ABG Hemoglobin Oxyhemoglobin Sodium 159 H Potassium 3.2 L Chloride 120.1 H Carbon Dioxide 31 H BUN Creatinine 1.9 H Glucose 404 H POC Glucose Lactic Acid Calcium Magnesium 2.60 H AST ALT Lactate Dehydrogenase Total Creatine Kinase C-Reactive Protein Albumin Urine WBC (Auto) Urine Total Protein Digoxin Salicylates Acetaminophen 12/30/19 12/30/19 12/30/19 06:26 12:29 13:44 WBC RBC Hgb Hct MCV MCH MCHC RDW Plt Count Lymph % (Auto) [place] % (Auto) Eos % (Auto) Lymph # [place] # Eos # Seg Neutrophils % Monocytes % (Manual) Monocytes # (Manual) D-Dimer ABG pH ABG pO2 ABG HCO3 ABG O2 Saturation ABG Base Excess ABG Hemoglobin Oxyhemoglobin Sodium Potassium Chloride Carbon Dioxide BUN Creatinine Glucose POC Glucose 399 H 469 H > 500 H Lactic Acid Calcium Magnesium AST ALT Lactate Dehydrogenase Total Creatine Kinase C-Reactive Protein Albumin Urine WBC (Auto) Urine Total Protein Digoxin Salicylates Acetaminophen 12/30/19 12/30/19 12/30/19 13:51 16:32 18:05 WBC RBC Hgb Hct MCV MCH MCHC RDW Plt Count Lymph % (Auto) [place] % (Auto) Eos % (Auto) Lymph # [place] # Eos # Seg Neutrophils % Monocytes % (Manual) Monocytes # (Manual) D-Dimer ABG pH ABG pO2 ABG HCO3 ABG O2 Saturation ABG Base Excess ABG Hemoglobin Oxyhemoglobin Sodium Potassium Chloride Carbon Dioxide BUN Creatinine Glucose POC Glucose > 500 H 445 H 429 H Lactic Acid Calcium Magnesium AST ALT Lactate Dehydrogenase Total Creatine Kinase C-Reactive Protein Albumin Urine WBC (Auto) Urine Total Protein Digoxin Salicylates Acetaminophen 12/30/19 12/30/19 12/31/19 21:42 Unknown 00:00 WBC RBC Hgb Hct MCV MCH MCHC RDW Plt Count Lymph % (Auto) [place] % (Auto) Eos % (Auto) Lymph # [place] # Eos # Seg Neutrophils % Monocytes % (Manual) Monocytes # (Manual) D-Dimer ABG pH ABG pO2 ABG HCO3 ABG O2 Saturation ABG Base Excess ABG Hemoglobin Oxyhemoglobin Sodium Potassium Chloride Carbon Dioxide BUN Creatinine Glucose 498 H POC Glucose 371 H 452 H Lactic Acid Calcium Magnesium AST ALT Lactate Dehydrogenase Total Creatine Kinase C-Reactive Protein Albumin Urine WBC (Auto) Urine Total Protein Digoxin Salicylates Acetaminophen 12/31/19 12/31/19 12/31/19 04:31 05:42 08:01 WBC RBC Hgb Hct MCV MCH MCHC RDW Plt Count Lymph % (Auto) [place] % (Auto) Eos % (Auto) Lymph # [place] # Eos # Seg Neutrophils % Monocytes % (Manual) Monocytes # (Manual) D-Dimer ABG pH 7.251 L ABG pO2 62.4 L ABG HCO3 31.1 H ABG O2 Saturation 88.7 L ABG Base Excess ABG Hemoglobin 8.7 L Oxyhemoglobin 86.4 L Sodium Potassium Chloride Carbon Dioxide BUN Creatinine Glucose POC Glucose 443 H 443 H Lactic Acid Calcium Magnesium AST ALT Lactate Dehydrogenase Total Creatine Kinase C-Reactive Protein Albumin Urine WBC (Auto) Urine Total Protein Digoxin Salicylates Acetaminophen 12/31/19 12/31/19 12/31/19 09:08 10:00 11:50 WBC RBC Hgb Hct MCV MCH MCHC RDW Plt Count Lymph % (Auto) [place] % (Auto) Eos % (Auto) Lymph # [place] # Eos # Seg Neutrophils % Monocytes % (Manual) Monocytes # (Manual) D-Dimer ABG pH 7.325 L ABG pO2 97.2 H ABG HCO3 30.1 H ABG O2 Saturation ABG Base Excess 3.4 H ABG Hemoglobin 8.3 L Oxyhemoglobin 94.7 L Sodium 151 H D Potassium 3.2 L Chloride 113.0 H Carbon Dioxide BUN 23 H Creatinine 1.8 H Glucose 373 H POC Glucose 465 H Lactic Acid Calcium Magnesium AST ALT Lactate Dehydrogenase Total Creatine Kinase C-Reactive Protein Albumin Urine WBC (Auto) Urine Total Protein Digoxin Salicylates Acetaminophen 12/31/19 12/31/19 12/31/19 12:25 13:33 18:30 WBC RBC Hgb Hct MCV MCH MCHC RDW Plt Count Lymph % (Auto) [place] % (Auto) Eos % (Auto) Lymph # [place] # Eos # Seg Neutrophils % Monocytes % (Manual) Monocytes # (Manual) D-Dimer ABG pH ABG pO2 ABG HCO3 ABG O2 Saturation ABG Base Excess ABG Hemoglobin Oxyhemoglobin Sodium Potassium Chloride Carbon Dioxide BUN Creatinine Glucose POC Glucose 379 H 311 H 349 H Lactic Acid Calcium Magnesium AST ALT Lactate Dehydrogenase Total Creatine Kinase C-Reactive Protein Albumin Urine WBC (Auto) Urine Total Protein Digoxin Salicylates Acetaminophen 12/31/19 12/31/19 01/01/20 22:29 23:30 02:58 WBC RBC Hgb Hct MCV MCH MCHC RDW Plt Count Lymph % (Auto) [place] % (Auto) Eos % (Auto) Lymph # [place] # Eos # Seg Neutrophils % Monocytes % (Manual) Monocytes # (Manual) D-Dimer ABG pH ABG pO2 ABG HCO3 ABG O2 Saturation ABG Base Excess ABG Hemoglobin Oxyhemoglobin Sodium Potassium Chloride Carbon Dioxide BUN Creatinine Glucose POC Glucose 256 H 266 H 248 H Lactic Acid Calcium Magnesium AST ALT Lactate Dehydrogenase Total Creatine Kinase C-Reactive Protein Albumin Urine WBC (Auto) Urine Total Protein Digoxin Salicylates Acetaminophen 01/01/20 01/01/20 01/01/20 04:19 06:56 10:52 WBC RBC Hgb Hct MCV MCH MCHC RDW Plt Count Lymph % (Auto) [place] % (Auto) Eos % (Auto) Lymph # [place] # Eos # Seg Neutrophils % Monocytes % (Manual) Monocytes # (Manual) D-Dimer ABG pH ABG pO2 90.7 H ABG HCO3 29.1 H ABG O2 Saturation ABG Base Excess 3.8 H ABG Hemoglobin 8.1 L Oxyhemoglobin 94.5 L Sodium Potassium Chloride Carbon Dioxide BUN Creatinine Glucose POC Glucose 303 H 244 H Lactic Acid Calcium Magnesium AST ALT Lactate Dehydrogenase Total Creatine Kinase C-Reactive Protein Albumin Urine WBC (Auto) Urine Total Protein Digoxin Salicylates Acetaminophen 01/01/20 01/01/20 01/01/20 13:39 14:49 18:42 WBC RBC Hgb Hct MCV MCH MCHC RDW Plt Count Lymph % (Auto) [place] % (Auto) Eos % (Auto) Lymph # [place] # Eos # Seg Neutrophils % Monocytes % (Manual) Monocytes # (Manual) D-Dimer ABG pH ABG pO2 ABG HCO3 ABG O2 Saturation ABG Base Excess ABG Hemoglobin Oxyhemoglobin Sodium 147 H Potassium Chloride 107.1 H Carbon Dioxide BUN 28 H Creatinine Glucose 207 H POC Glucose 263 H 188 H Lactic Acid Calcium Magnesium AST ALT Lactate Dehydrogenase Total Creatine Kinase C-Reactive Protein Albumin Urine WBC (Auto) Urine Total Protein Digoxin Salicylates Acetaminophen 01/02/20 01/02/20 01/02/20 02:22 03:58 05:00 WBC RBC 3.31 L Hgb 8.0 L Hct 26.9 L MCV 81 L MCH 24 L MCHC 30 L RDW 19.4 H Plt Count Lymph % (Auto) [place] % (Auto) 9.4 H Eos % (Auto) 11.2 H Lymph # [place] # Eos # 0.8 H Seg Neutrophils % Monocytes % (Manual) Monocytes # (Manual) D-Dimer ABG pH ABG pO2 63.0 L ABG HCO3 31.6 H ABG O2 Saturation 91.8 L ABG Base Excess 5.5 H ABG Hemoglobin 8.6 L Oxyhemoglobin 89.6 L Sodium Potassium Chloride Carbon Dioxide BUN Creatinine Glucose POC Glucose 196 H Lactic Acid Calcium Magnesium AST ALT Lactate Dehydrogenase Total Creatine Kinase C-Reactive Protein Albumin Urine WBC (Auto) Urine Total Protein Digoxin Salicylates Acetaminophen 01/02/20 01/02/20 01/02/20 05:40 10:26 13:57 WBC RBC Hgb Hct MCV MCH MCHC RDW Plt Count Lymph % (Auto) [place] % (Auto) Eos % (Auto) Lymph # [place] # Eos # Seg Neutrophils % Monocytes % (Manual) Monocytes # (Manual) D-Dimer ABG pH ABG pO2 ABG HCO3 ABG O2 Saturation ABG Base Excess ABG Hemoglobin Oxyhemoglobin Sodium Potassium Chloride Carbon Dioxide BUN Creatinine Glucose POC Glucose 189 H 157 H 178 H Lactic Acid Calcium Magnesium AST ALT Lactate Dehydrogenase Total Creatine Kinase C-Reactive Protein Albumin Urine WBC (Auto) Urine Total Protein Digoxin Salicylates Acetaminophen 01/02/20 01/03/20 01/03/20 21:27 03:12 05:26 WBC RBC Hgb Hct MCV MCH MCHC RDW Plt Count Lymph % (Auto) [place] % (Auto) Eos % (Auto) Lymph # [place] # Eos # Seg Neutrophils % Monocytes % (Manual) Monocytes # (Manual) D-Dimer ABG pH 7.473 H ABG pO2 109.6 H ABG HCO3 30.4 H ABG O2 Saturation ABG Base Excess 6.2 H ABG Hemoglobin 9.9 L Oxyhemoglobin Sodium Potassium Chloride Carbon Dioxide BUN Creatinine Glucose POC Glucose 131 H 133 H Lactic Acid Calcium Magnesium AST ALT Lactate Dehydrogenase Total Creatine Kinase C-Reactive Protein Albumin Urine WBC (Auto) Urine Total Protein Digoxin Salicylates Acetaminophen 01/03/20 01/03/20 01/03/20 05:40 05:40 15:01 WBC RBC 3.45 L Hgb 8.3 L Hct 27.3 L MCV 79 L MCH 24 L MCHC 30 L RDW 19.3 H Plt Count Lymph % (Auto) [place] % (Auto) Eos % (Auto) Lymph # [place] # Eos # Seg Neutrophils % Monocytes % (Manual) Monocytes # (Manual) D-Dimer ABG pH ABG pO2 ABG HCO3 ABG O2 Saturation ABG Base Excess ABG Hemoglobin Oxyhemoglobin Sodium 151 H Potassium Chloride 111.8 H Carbon Dioxide 31 H BUN 37 H Creatinine 1.8 H Glucose 187 H POC Glucose 164 H Lactic Acid Calcium Magnesium AST ALT Lactate Dehydrogenase Total Creatine Kinase C-Reactive Protein Albumin Urine WBC (Auto) Urine Total Protein Digoxin Salicylates Acetaminophen 01/03/20 01/03/20 01/04/20 18:15 22:45 02:11 WBC RBC Hgb Hct MCV MCH MCHC RDW Plt Count Lymph % (Auto) [place] % (Auto) Eos % (Auto) Lymph # [place] # Eos # Seg Neutrophils % Monocytes % (Manual) Monocytes # (Manual) D-Dimer ABG pH ABG pO2 ABG HCO3 ABG O2 Saturation ABG Base Excess ABG Hemoglobin Oxyhemoglobin Sodium Potassium Chloride Carbon Dioxide BUN Creatinine Glucose POC Glucose 184 H 176 H 206 H Lactic Acid Calcium Magnesium AST ALT Lactate Dehydrogenase Total Creatine Kinase C-Reactive Protein Albumin Urine WBC (Auto) Urine Total Protein Digoxin Salicylates Acetaminophen 01/04/20 01/04/20 01/04/20 03:16 05:15 10:53 WBC RBC Hgb Hct MCV MCH MCHC RDW Plt Count Lymph % (Auto) [place] % (Auto) Eos % (Auto) Lymph # [place] # Eos # Seg Neutrophils % Monocytes % (Manual) Monocytes # (Manual) D-Dimer ABG pH 7.282 L ABG pO2 73.2 L ABG HCO3 ABG O2 Saturation 94.5 L ABG Base Excess -6.4 L ABG Hemoglobin 10.9 L Oxyhemoglobin 92.1 L Sodium Potassium Chloride Carbon Dioxide BUN Creatinine Glucose POC Glucose 139 H 224 H Lactic Acid Calcium Magnesium AST ALT Lactate Dehydrogenase Total Creatine Kinase C-Reactive Protein Albumin Urine WBC (Auto) Urine Total Protein Digoxin Salicylates Acetaminophen 01/04/20 01/04/20 01/04/20 15:47 18:05 22:07 WBC RBC Hgb Hct MCV MCH MCHC RDW Plt Count Lymph % (Auto) [place] % (Auto) Eos % (Auto) Lymph # [place] # Eos # Seg Neutrophils % Monocytes % (Manual) Monocytes # (Manual) D-Dimer ABG pH ABG pO2 ABG HCO3 ABG O2 Saturation ABG Base Excess ABG Hemoglobin Oxyhemoglobin Sodium Potassium Chloride Carbon Dioxide BUN Creatinine Glucose POC Glucose 135 H 117 H 108 H Lactic Acid Calcium Magnesium AST ALT Lactate Dehydrogenase Total Creatine Kinase C-Reactive Protein Albumin Urine WBC (Auto) Urine Total Protein Digoxin Salicylates Acetaminophen 01/04/20 01/04/20 01/05/20 Unknown Unknown 02:04 WBC RBC 3.46 L Hgb 8.2 L Hct 27.8 L MCV 80 L MCH 24 L MCHC 30 L RDW 19.7 H Plt Count Lymph % (Auto) [place] % (Auto) Eos % (Auto) Lymph # [place] # Eos # Seg Neutrophils % Monocytes % (Manual) Monocytes # (Manual) D-Dimer ABG pH ABG pO2 ABG HCO3 ABG O2 Saturation ABG Base Excess ABG Hemoglobin Oxyhemoglobin Sodium 150 H Potassium Chloride 110 H Carbon Dioxide 32 H BUN 32 H Creatinine Glucose 309 H POC Glucose 140 H Lactic Acid Calcium Magnesium AST ALT Lactate Dehydrogenase Total Creatine Kinase C-Reactive Protein Albumin Urine WBC (Auto) Urine Total Protein Digoxin Salicylates Acetaminophen 01/05/20 01/05/20 01/05/20 03:31 03:36 03:36 WBC RBC 3.46 L Hgb 8.4 L Hct 26.9 L MCV 78 L MCH 24 L MCHC 31 L RDW 19.0 H Plt Count Lymph % (Auto) [place] % (Auto) Eos % (Auto) Lymph # [place] # Eos # Seg Neutrophils % Monocytes % (Manual) Monocytes # (Manual) D-Dimer ABG pH 7.454 H ABG pO2 113.0 H ABG HCO3 30.5 H ABG O2 Saturation ABG Base Excess 6.0 H ABG Hemoglobin 8.5 L Oxyhemoglobin Sodium 150 H Potassium Chloride 110.3 H Carbon Dioxide BUN 30 H Creatinine Glucose 148 H POC Glucose Lactic Acid Calcium Magnesium AST ALT Lactate Dehydrogenase Total Creatine Kinase C-Reactive Protein Albumin Urine WBC (Auto) Urine Total Protein Digoxin Salicylates Acetaminophen 01/05/20 01/05/20 01/05/20 05:21 09:56 11:45 WBC RBC Hgb Hct MCV MCH MCHC RDW Plt Count Lymph % (Auto) [place] % (Auto) Eos % (Auto) Lymph # [place] # Eos # Seg Neutrophils % Monocytes % (Manual) Monocytes # (Manual) D-Dimer ABG pH ABG pO2 ABG HCO3 ABG O2 Saturation ABG Base Excess ABG Hemoglobin Oxyhemoglobin Sodium Potassium Chloride Carbon Dioxide BUN Creatinine Glucose POC Glucose 142 H 129 H 174 H Lactic Acid Calcium Magnesium AST ALT Lactate Dehydrogenase Total Creatine Kinase C-Reactive Protein Albumin Urine WBC (Auto) Urine Total Protein Digoxin Salicylates Acetaminophen 01/05/20 01/05/20 01/05/20 13:30 14:00 17:41 WBC RBC Hgb Hct MCV MCH MCHC RDW Plt Count Lymph % (Auto) [place] % (Auto) Eos % (Auto) Lymph # [place] # Eos # Seg Neutrophils % Monocytes % (Manual) Monocytes # (Manual) D-Dimer ABG pH ABG pO2 ABG HCO3 ABG O2 Saturation ABG Base Excess ABG Hemoglobin Oxyhemoglobin Sodium Potassium Chloride Carbon Dioxide BUN 26 H Creatinine 1.6 H Glucose 302 H POC Glucose 168 H 136 H Lactic Acid Calcium Magnesium AST ALT Lactate Dehydrogenase Total Creatine Kinase C-Reactive Protein Albumin Urine WBC (Auto) Urine Total Protein Digoxin Salicylates Acetaminophen 01/05/20 01/05/20 01/06/20 20:38 23:32 03:50 WBC RBC Hgb Hct MCV MCH MCHC RDW Plt Count Lymph % (Auto) [place] % (Auto) Eos % (Auto) Lymph # [place] # Eos # Seg Neutrophils % Monocytes % (Manual) Monocytes # (Manual) D-Dimer ABG pH ABG pO2 76.2 L ABG HCO3 30.1 H ABG O2 Saturation ABG Base Excess 5.1 H ABG Hemoglobin 9.5 L Oxyhemoglobin 93.8 L Sodium Potassium Chloride Carbon Dioxide BUN Creatinine Glucose POC Glucose 124 H 163 H Lactic Acid Calcium Magnesium AST ALT Lactate Dehydrogenase Total Creatine Kinase C-Reactive Protein Albumin Urine WBC (Auto) Urine Total Protein Digoxin Salicylates Acetaminophen 01/06/20 01/06/20 01/06/20 04:09 04:58 04:58 WBC RBC Hgb 8.8 L Hct 28.7 L MCV 78 L MCH 24 L MCHC 31 L RDW 18.7 H Plt Count 522 H Lymph % (Auto) [place] % (Auto) Eos % (Auto) Lymph # [place] # Eos # Seg Neutrophils % Monocytes % (Manual) Monocytes # (Manual) D-Dimer ABG pH ABG pO2 ABG HCO3 ABG O2 Saturation ABG Base Excess ABG Hemoglobin Oxyhemoglobin Sodium 150 H D Potassium Chloride 109.3 H Carbon Dioxide BUN 25 H Creatinine Glucose 55 L POC Glucose 65 L Lactic Acid Calcium Magnesium AST ALT Lactate Dehydrogenase Total Creatine Kinase C-Reactive Protein Albumin Urine WBC (Auto) Urine Total Protein Digoxin Salicylates Acetaminophen 01/06/20 01/06/20 01/06/20 05:01 14:10 17:49 WBC RBC Hgb Hct MCV MCH MCHC RDW Plt Count Lymph % (Auto) [place] % (Auto) Eos % (Auto) Lymph # [place] # Eos # Seg Neutrophils % Monocytes % (Manual) Monocytes # (Manual) D-Dimer ABG pH ABG pO2 ABG HCO3 ABG O2 Saturation ABG Base Excess ABG Hemoglobin Oxyhemoglobin Sodium Potassium Chloride Carbon Dioxide BUN Creatinine Glucose POC Glucose 60 L 119 H 131 H Lactic Acid Calcium Magnesium AST ALT Lactate Dehydrogenase Total Creatine Kinase C-Reactive Protein Albumin Urine WBC (Auto) Urine Total Protein Digoxin Salicylates Acetaminophen 01/06/20 01/07/20 01/07/20 21:08 02:11 05:19 WBC RBC Hgb Hct MCV MCH MCHC RDW Plt Count Lymph % (Auto) [place] % (Auto) Eos % (Auto) Lymph # [place] # Eos # Seg Neutrophils % Monocytes % (Manual) Monocytes # (Manual) D-Dimer ABG pH ABG pO2 ABG HCO3 ABG O2 Saturation ABG Base Excess ABG Hemoglobin Oxyhemoglobin Sodium Potassium Chloride Carbon Dioxide BUN Creatinine Glucose POC Glucose 136 H 209 H 182 H Lactic Acid Calcium Magnesium AST ALT Lactate Dehydrogenase Total Creatine Kinase C-Reactive Protein Albumin Urine WBC (Auto) Urine Total Protein Digoxin Salicylates Acetaminophen 01/07/20 01/07/20 01/07/20 11:40 11:52 13:49 WBC RBC Hgb Hct MCV MCH MCHC RDW Plt Count Lymph % (Auto) [place] % (Auto) Eos % (Auto) Lymph # [place] # Eos # Seg Neutrophils % Monocytes % (Manual) Monocytes # (Manual) D-Dimer ABG pH ABG pO2 ABG HCO3 ABG O2 Saturation ABG Base Excess ABG Hemoglobin Oxyhemoglobin Sodium Potassium Chloride Carbon Dioxide BUN 21 H Creatinine Glucose 190 H POC Glucose 180 H 184 H Lactic Acid Calcium Magnesium AST ALT Lactate Dehydrogenase Total Creatine Kinase C-Reactive Protein Albumin Urine WBC (Auto) Urine Total Protein Digoxin Salicylates Acetaminophen 01/07/20 01/07/20 01/07/20 17:54 22:19 Unknown WBC RBC Hgb Hct MCV MCH MCHC RDW Plt Count Lymph % (Auto) [place] % (Auto) Eos % (Auto) Lymph # [place] # Eos # Seg Neutrophils % Monocytes % (Manual) Monocytes # (Manual) D-Dimer ABG pH ABG pO2 ABG HCO3 28.9 H ABG O2 Saturation ABG Base Excess 4.0 H ABG Hemoglobin 11.0 L Oxyhemoglobin 94.2 L Sodium Potassium Chloride Carbon Dioxide BUN Creatinine Glucose POC Glucose 190 H 299 H Lactic Acid Calcium Magnesium AST ALT Lactate Dehydrogenase Total Creatine Kinase C-Reactive Protein Albumin Urine WBC (Auto) Urine Total Protein Digoxin Salicylates Acetaminophen 01/08/20 01/08/20 01/08/20 02:45 05:26 05:27 WBC RBC Hgb Hct MCV MCH MCHC RDW Plt Count Lymph % (Auto) [place] % (Auto) Eos % (Auto) Lymph # [place] # Eos # Seg Neutrophils % Monocytes % (Manual) Monocytes # (Manual) D-Dimer ABG pH ABG pO2 67.8 L ABG HCO3 26.5 H ABG O2 Saturation 93.2 L ABG Base Excess ABG Hemoglobin 8.1 L Oxyhemoglobin 90.4 L Sodium Potassium Chloride Carbon Dioxide BUN Creatinine Glucose POC Glucose 245 H 346 H Lactic Acid Calcium Magnesium AST ALT Lactate Dehydrogenase Total Creatine Kinase C-Reactive Protein Albumin Urine WBC (Auto) Urine Total Protein Digoxin Salicylates Acetaminophen 01/08/20 01/08/20 01/08/20 08:03 08:03 10:33 WBC RBC 3.14 L Hgb 7.6 L Hct 24.3 L MCV 77 L MCH 24 L MCHC 31 L RDW 18.3 H Plt Count 509 H Lymph % (Auto) [place] % (Auto) Eos % (Auto) Lymph # [place] # Eos # Seg Neutrophils % Monocytes % (Manual) Monocytes # (Manual) D-Dimer ABG pH ABG pO2 ABG HCO3 ABG O2 Saturation ABG Base Excess ABG Hemoglobin Oxyhemoglobin Sodium 132 L D Potassium Chloride 94.7 L Carbon Dioxide BUN 22 H Creatinine Glucose 284 H POC Glucose 275 H Lactic Acid Calcium Magnesium AST ALT Lactate Dehydrogenase Total Creatine Kinase C-Reactive Protein Albumin Urine WBC (Auto) Urine Total Protein Digoxin Salicylates Acetaminophen 01/08/20 01/08/20 01/08/20 13:34 17:24 21:49 WBC RBC Hgb Hct MCV MCH MCHC RDW Plt Count Lymph % (Auto) [place] % (Auto) Eos % (Auto) Lymph # [place] # Eos # Seg Neutrophils % Monocytes % (Manual) Monocytes # (Manual) D-Dimer ABG pH ABG pO2 ABG HCO3 ABG O2 Saturation ABG Base Excess ABG Hemoglobin Oxyhemoglobin Sodium Potassium Chloride Carbon Dioxide BUN Creatinine Glucose POC Glucose 273 H 294 H 265 H Lactic Acid Calcium Magnesium AST ALT Lactate Dehydrogenase Total Creatine Kinase C-Reactive Protein Albumin Urine WBC (Auto) Urine Total Protein Digoxin Salicylates Acetaminophen 01/09/20 01/09/20 01/09/20 00:13 03:45 05:55 WBC RBC Hgb Hct MCV MCH MCHC RDW Plt Count Lymph % (Auto) [place] % (Auto) Eos % (Auto) Lymph # [place] # Eos # Seg Neutrophils % Monocytes % (Manual) Monocytes # (Manual) D-Dimer ABG pH ABG pO2 ABG HCO3 ABG O2 Saturation ABG Base Excess ABG Hemoglobin Oxyhemoglobin Sodium Potassium Chloride Carbon Dioxide BUN Creatinine Glucose POC Glucose 251 H 346 H 300 H Lactic Acid Calcium Magnesium AST ALT Lactate Dehydrogenase Total Creatine Kinase C-Reactive Protein Albumin Urine WBC (Auto) Urine Total Protein Digoxin Salicylates Acetaminophen 01/09/20 08:15 WBC RBC Hgb Hct MCV MCH MCHC RDW Plt Count Lymph % (Auto) [place] % (Auto) Eos % (Auto) Lymph # [place] # Eos # Seg Neutrophils % Monocytes % (Manual) Monocytes # (Manual) D-Dimer ABG pH ABG pO2 ABG HCO3 ABG O2 Saturation ABG Base Excess ABG Hemoglobin Oxyhemoglobin Sodium 134 L Potassium Chloride 97.6 L Carbon Dioxide BUN 25 H Creatinine Glucose 240 H POC Glucose Lactic Acid Calcium Magnesium AST ALT Lactate Dehydrogenase Total Creatine Kinase C-Reactive Protein Albumin Urine WBC (Auto) Urine Total Protein Digoxin Salicylates Acetaminophen Chest x-ray: pending Allied health notes reviewed: nursing
[2020-01-09] MEDS: ATROPINE 0.1% (1 MG/10 ML) CARDIAC SYRINGE IV PRN (23:52)
[2020-01-10] MEDS: INSULIN LISPRO 100 UNIT/ML SUB-Q SCH ×6 (02:12→22:44)
--- NOTE | 2020-01-10 03:27 | XRay Report ---
CHEST 1 VIEW 2:38 AM INDICATION / CLINICAL INFORMATION: Pneumonia; ETT position. COMPARISON: 03/26/20. FINDINGS: SUPPORT DEVICES: The tip of the endotracheal tube is approximately 5.5 cm above the judy. There is a nasogastric tube coursing into the distal stomach with the tip not seen. The tip of the right PICC overlies the mid to distal SVC. HEART / MEDIASTINUM: There is borderline cardiomegaly. There is mild prominence of the central pulmon alexa vasculature. LUNGS / PLEURA: Pleuroparenchymal opacity in the left mid to lower hemithorax has shown significant i mprovement. There is patchy parenchymal disease in both perihilar regions and central lungs. No pneum othorax. ADDITIONAL FINDINGS: No significant additional findings. IMPRESSION: 1. Probable mild pulmonary edema. 2. Improving pleuroparenchymal opacity in the left mid to lower lung. 3. Endotracheal tube in satisfactory position. Signer Name: Adam Romero MD Signed: 01/10/2020 3:23 AM Workstation Name: [id number]
[2020-01-10] MEDS: ATROPINE 0.1% (1 MG/10 ML) CARDIAC SYRINGE IV PRN ×3 (04:00→18:00)
[2020-01-10] MEDS: fentaNYL DRIP Premix 2,000 MCG/100 ML BAG IV SCH ×2 (04:10→14:03)
[2020-01-10 04:41] LABS: ABG Base Excess 2.5 mmol/L (-2.0-3.0); ABG HCO3 27.8 mmol/L (20.0-26.0); ABG PCO2 45.1 mm Hg; ABG PH 7.407 pH Units (7.350-7.450); ABG PO2 95.3 mm Hg (80.0-90.0)
[2020-01-10 04:46] LABS: ABG Methemoglobin 0.5 % (0.0-1.5); ABG Oxygen Saturation 97.7 % (95.0-99.0)
[2020-01-10] MEDS: LEVOTHYROXINE 88 MCG TAB PO SCH (05:50)
[2020-01-10] MEDS: HYDROCORTISONE SOD SUCC 100 MG/2 ML VIAL IV SCH ×3 (05:50→22:01)
[2020-01-10] MEDS: IPRATROPIUM/ALBUTEROL SULFATE 3 ML AMPUL.NEB IH SCH ×3 (08:58→20:33)
[2020-01-10] MEDS: ASPIRIN 81 MG TAB CHEW PO SCH (09:05)
[2020-01-10] MEDS: DOCUSATE SODIUM 100 MG/10 ML ORAL LIQD PO SCH ×2 (09:05→22:11)
[2020-01-10] MEDS: HEPARIN 5,000 UNIT/1 ML VIAL SUB-Q SCH ×2 (09:06→22:11)
[2020-01-10] MEDS: POTASSIUM CHLORIDE 20 MEQ PACKET FEEDTUBE SCH (09:06)
[2020-01-10] MEDS: FOLIC ACID 1 MG TAB PO SCH (09:06)
[2020-01-10] MEDS: FAMOTIDINE 20 MG TAB PO SCH ×2 (09:06→22:01)
--- NOTE | 2020-01-10 12:08 | Progress Note ---
Assessment and Plan - Patient Problems (1) Bradycardia Current Visit: Yes Status: Acute Plan to address problem: Etiology of bradycardia is uncertain, hyponatremia has been corrected, and TSH level is normal at 2.3. He is receiving no concurrent AV estella blocking agents at this time. A persistently elevated vagal tone or vasodepressor reaction is a possible etiology, versus underlying conduction system disease. We have recommended atropine at the bedside to be used as needed for heart rate below 40, otherwise continue supportive management and avoid AV estella blocking agents. Further cardiac management including device therapies will depend on clinical course. (2) Cardiomyopathy Current Visit: Yes Status: Acute Plan to address problem: Echocardiogram reviewed, shows a moderate severity dilated cardiomyopathy with estimated ejection fraction 35 to 40%. We will continue conservative supportive cardiac management at this time until hemodynamics support introduction of guideline directed medical therapies. Subjective Date of service: 01/10/20 Principal diagnosis: Ac. Hypoxemic Resp Failure; Septic Shock; Magdiel. PNA; PUI COVID-19; CHF; JOE Interval history: Patient is sedated, on the vent. On telemetry he is sinus rhythm at 63. Objective Vital Signs Temp Pulse Pulse Pulse Resp Resp BP 01/10/20 11:00 52 L 24 142/84 01/10/20 10:30 58 L 17 129/69 01/10/20 10:00 63 21 129/69 01/10/20 09:36 69 24 01/10/20 09:30 73 17 160/92 01/10/20 09:00 40 L 13 117/51 01/10/20 08:54 42 L 117/51 01/10/20 08:30 46 L 10 L 117/54 01/10/20 08:17 46 L 01/10/20 08:00 97.9 F 71 71 17 133/54 01/10/20 07:30 67 15 117/64 01/10/20 07:00 47 L 12 133/66 01/10/20 06:30 62 12 131/62 01/10/20 06:00 51 L 24 132/69 01/10/20 05:30 60 25 H 134/109 01/10/20 05:00 149/81 01/10/20 04:30 73 24 159/88 01/10/20 04:27 73 159/88 01/10/20 04:00 98.3 F 44 L 74 24 139/67 01/10/20 03:30 46 L 24 135/64 01/10/20 03:00 50 L 24 149/77 01/10/20 02:30 54 L 24 143/71 01/10/20 02:00 58 L 24 148/73 01/10/20 01:30 64 24 146/77 01/10/20 01:00 71 24 143/77 01/10/20 00:30 81 19 153/87 01/10/20 00:11 85 158/90 01/10/20 00:00 97.9 F 95 H 82 24 138/61 01/09/20 23:30 53 L 18 109/50 01/09/20 23:00 65 10 L 95/51 01/09/20 22:30 65 24 119/59 01/09/20 22:00 53 L 25 H 114/56 01/09/20 21:30 77 13 120/59 01/09/20 21:00 89 25 H 132/54 01/09/20 20:30 56 L 21 120/51 01/09/20 20:00 70 80 54 L 15 24 120/59 01/09/20 19:51 98.3 F 01/09/20 19:30 49 L 14 115/58 01/09/20 19:00 52 L 19 108/61 01/09/20 18:59 53 L 24 108/61 01/09/20 18:30 63 23 116/94 01/09/20 18:00 65 23 117/57 01/09/20 17:30 80 25 H 117/57 01/09/20 17:00 72 30 H 140/60 01/09/20 16:30 65 21 138/58 01/09/20 16:00 97.8 F 48 L 59 L 20 130/55 01/09/20 15:30 42 L 24 128/56 01/09/20 15:00 41 L 24 117/55 01/09/20 14:30 49 L 12 123/54 01/09/20 14:00 43 L 24 121/54 01/09/20 13:30 60 24 91/46 01/09/20 13:15 56 L 24 01/09/20 13:00 58 L 24 104/49 01/09/20 12:30 62 17 114/65 Pulse Ox 01/10/20 11:00 97 01/10/20 10:30 96 07/06/20 10:00 99 01/10/20 09:36 01/10/20 09:30 99 01/10/20 09:00 100 01/10/20 08:54 100 01/10/20 08:30 99 01/10/20 08:17 01/10/20 08:00 86 01/10/20 07:30 98 01/10/20 07:00 92 01/10/20 06:30 98 01/10/20 06:00 99 01/10/20 05:30 92 01/10/20 05:00 96 01/10/20 04:30 98 01/10/20 04:27 97 01/10/20 04:00 98 01/10/20 03:30 98 01/10/20 03:00 95 01/10/20 02:30 96 01/10/20 02:00 95 01/10/20 01:30 94 01/10/20 01:00 92 01/10/20 00:30 87 01/10/20 00:11 90 01/10/20 00:00 96 01/09/20 23:30 93 01/09/20 23:00 97 01/09/20 22:30 94 01/09/20 22:00 88 01/09/20 21:30 93 01/09/20 21:00 95 01/09/20 20:30 93 01/09/20 20:00 95 01/09/20 19:51 01/09/20 19:30 89 01/09/20 19:00 93 01/09/20 18:59 91 01/09/20 18:30 93 01/09/20 18:00 94 01/09/20 17:30 99 01/09/20 17:00 94 01/09/20 16:30 93 01/09/20 16:00 99 01/09/20 15:30 96 01/09/20 15:00 96 01/09/20 14:30 94 01/09/20 14:00 93 01/09/20 13:30 97 01/09/20 13:15 01/09/20 13:00 93 01/09/20 12:30 93 - Physical Examination General: Other (intubated on the vent) Neck: Positive: neck supple Cardiac: Positive: Reg Rate and Rhythm Lungs: Positive: Decreased Breath Sounds Neuro: Positive: Other (Intubated, on the vent) Abdomen: Positive: Soft Skin: Positive: Clear Extremities: Absent: edema - Allied health notes Allied health notes reviewed: nursing
--- NOTE | 2020-01-10 14:22 | Consultation ---
History of Present Illness Consult date: 01/10/20 Chief complaint: vent dependence - History of present illness History of present illness: 59 yo M with hx of CHF who presented to ER with SOB. He was intubated to protect his airway. He has failed intubation once during this admission and has not been able to be weaned from the vent since. No f/c. Tolerating TF. Past History Past Medical History: diabetes, heart failure, hypertension, other (See HPI) Past Surgical History: cholecystectomy Social history: single. denies: smoking, alcohol abuse, prescription drug abuse Family history: diabetes, hypertension Medications and Allergies Allergies Allergy/AdvReac Type Severity Reaction Status Date / Time No Known Allergies Allergy Unverified 12/19/19 01:31 Home Medications Medication Instructions Recorded Confirmed Last Taken Type Ipratropium/Albuterol Sulfate 1 ampul IH TIDRT #90 ampul.neb 06/02/19 12/28/19 Unknown Rx [DUONEB *Not for PRN Use*] Aspirin [Aspirin BABY CHEW TAB] 81 mg PO DAILY 06/03/19 12/28/19 3 Days Ago History ~05/31/19 Desmopressin [Ddavp] 0.2 mg PO BID 06/03/19 12/28/19 3 Days Ago History ~05/31/19 Digoxin [Lanoxin] 0.125 mg PO DAILY 06/03/19 12/28/19 3 Days Ago History ~05/31/19 Folic Acid 100 mg PO DAILY 06/03/19 12/28/19 3 Days Ago History ~05/31/19 Furosemide [Lasix TAB] 40 mg PO QDAY 06/03/19 12/28/19 3 Days Ago History ~05/31/19 Insulin Lispro [Humalog 100 4 units SQ AC 06/03/19 12/28/19 3 Days Ago History UNITS/ML Kwikpen] ~05/31/19 Levothyroxine [Synthroid] 88 mcg PO QAM 06/03/19 12/28/19 3 Days Ago History ~05/31/19 Metformin HCl [metFORMIN] 1,000 mg PO BID 06/03/19 12/28/19 3 Days Ago History ~05/31/19 Potassium Chloride [K-Dur] 20 meq PO QDAY 06/03/19 12/28/19 3 Days Ago History ~05/31/19 carvediloL [Coreg] 6.25 mg PO BID 06/03/19 12/28/19 3 Days Ago History ~05/31/19 Famotidine [Pepcid] 20 mg PO QDAY #30 tablet 06/06/19 12/28/19 Unknown Rx Insulin NPH/Regular [NovoLIN 70/30] 50 unit SUB-Q BIDDIAB #100 units 06/06/19 12/28/19 Unknown Rx Active Meds: Active Medications Acetaminophen (Tylenol) 650 mg PO Q4H PRN PRN Reason: Non Cardiac Pain or Temp>100.5 Last Admin: 01/03/20 18:31 Dose: 650 mg Documented by: Albuterol/Ipratropium (Duoneb *Not For Prn Use*) 1 ampul IH TIDRT [facility] Last Admin: 01/10/20 13:51 Dose: 1 ampul Documented by: Lipase/Protease/Amylase (Erendira Cabrera 10,500 Unit) 1 each FEEDTUBE PRN PRN PRN Reason: For Clogged Feeding Tube Aspirin (Baby Aspirin) 81 mg PO DAILY [facility] Last Admin: 01/10/20 09:05 Dose: 81 mg Documented by: Atropine Sulfate (Atropine 0.1% (Cardiac)) 1 mg IV PRN PRN PRN Reason: Bradycardia Last Admin: 01/10/20 09:11 Dose: 1 mg Documented by: Bisacodyl (Dulcolax) 10 mg MN QDAY PRN PRN Reason: Constipation Last Admin: 01/02/20 18:25 Dose: 10 mg Documented by: Docusate Sodium (Colace) 100 mg PO BID [facility] Last Admin: 01/10/20 09:05 Dose: 100 mg Documented by: Famotidine (Pepcid) 20 mg PO BID [facility] Last Admin: 01/10/20 09:06 Dose: 20 mg Documented by: Fentanyl (Sublimaze) 50 mcg IV Q10MIN PRN PRN Reason: ANALGESIA Folic Acid (Folvite) 1 mg PO DAILY [facility] Last Admin: 01/10/20 09:06 Dose: 1 mg Documented by: Heparin Sodium (Porcine) (Heparin) 5,000 unit SUB-Q Q12HR [facility] Last Admin: 01/10/20 09:06 Dose: 5,000 unit Documented by: Hydrocortisone Sodium Succinate (Solu-Cortef) 100 mg IV Q8HR [facility] Stop: 01/12/20 13:59 Last Admin: 01/10/20 05:50 Dose: 100 mg Documented by: Hydrophilic Ointment (Vaseline Lip Therapy) 1 applic TP Q2HR PRN PRN Reason: Dry Lips Fentanyl Citrate (Fentanyl Drip Premix) 2,000 mcg in 100 mls @ 5.85 mls/hr IV TITR [facility]AN[facility]; Protocol Last Admin: 01/10/20 04:10 Dose: 2 mcg/kg/hr, 11.7 mls/hr Documented by: Norepinephrine (Levophed Drip 4 Mg/Ns 250 Ml) 4 mg in 250 mls @ 7.5 mls/hr IV TITR SHANEL; Protocol Last Titration: 01/09/20 09:02 Dose: 0 mcg/min, 0 mls/hr Documented by: Vasopressin 20 unit/ Sodium (Chloride) 101 mls @ 9.09 mls/hr IV TITR SHANEL; Protocol Last Titration: 01/01/20 13:44 Dose: 0 units/min, 0 mls/hr Documented by: Dopamine HCl/Dextrose (Intropin Drip 800 Mg/D5w 250 Ml) 800 mg in 250 mls @ 4.388 mls/hr IV TITR SHANEL; Protocol Last Titration: 01/10/20 09:25 Dose: 2 mcg/kg/min, 4.388 mls/hr Documented by: Sodium Chloride (Nacl 0.9% 1000 Ml) 1,000 mls @ 50 mls/hr IV DIRECT [facility] Last Admin: 01/09/20 17:19 Dose: 50 mls/hr Documented by: Insulin Glargine (Lantus) 15 units SUB-Q BID [facility] Insulin Human Lispro (Humalog) 0 unit SUB-Q Q4HR [facility]; Protocol Last Admin: 01/10/20 11:01 Dose: 6 unit Documented by: Levothyroxine Sodium (Synthroid) 88 mcg PO QAM@0600 [facility] Last Admin: 01/10/20 05:50 Dose: 88 mcg Documented by: Multi-Ingred Cream/Lotion/Oil/Oint (Artificial Tears Ophth Oint) 1 applic OU Q4HR PRN PRN Reason: Dry Eye(s) Polyethylene Glycol (Miralax 3350) 17 gm PO QHS [facility] Last Admin: 01/09/20 21:55 Dose: 17 gm Documented by: Simple Syrup (Simple Syrup) 15 ml FEEDTUBE PRN PRN PRN Reason: Hypoglycemia Last Admin: 01/06/20 04:58 Dose: 15 ml Documented by: Simple Syrup (Simple Syrup) 30 ml FEEDTUBE PRN PRN PRN Reason: Hypoglycemia Sodium Bicarbonate (Sodium Bicarbonate) 325 mg FEEDTUBE PRN PRN PRN Reason: For Clogged Feeding Tube Sodium Chloride (Sodium Chloride Flush Syringe 10 Ml) 10 ml IV BID [facility] Last Admin: 01/10/20 09:06 Dose: 10 ml Documented by: Sodium Chloride (Sodium Chloride Flush Syringe 10 Ml) 10 ml IV PRN PRN PRN Reason: LINE FLUSH Review of Systems ROS unobtainable: due to endotracheal tube, due to mental status Exam Vital Signs Pulse Pulse Ox 100 H 94 12/18/19 13:27 12/18/19 13:27 Narrative exam: Gen: Awake on vent. Answers yes and no to questions ENT: ETT and NGT in place CV: s1, S2+ resp: no wheezes. On full vent support Abd: soft, protuberant, NT. Well heal surgical scars Ext: +edema Results - Labs 01/08/20 08:03 01/09/20 08:15 Abnormal lab results 01/09/20 01/09/20 01/09/20 Range/Units 09:31 12:04 13:46 ABG pO2 (80.0-90.0) mm Hg ABG HCO3 (20.0-26.0) mmol/L ABG Hemoglobin (14.0-18.0) gm/dl POC Glucose 191 H 230 H 211 H (70-105) 01/09/20 01/09/20 01/10/20 Range/Units 17:31 22:28 02:16 ABG pO2 (80.0-90.0) mm Hg ABG HCO3 (20.0-26.0) mmol/L ABG Hemoglobin (14.0-18.0) gm/dl POC Glucose 260 H 223 H 219 H (70-105) 01/10/20 01/10/20 01/10/20 Range/Units 04:20 05:55 10:38 ABG pO2 95.3 H (80.0-90.0) mm Hg ABG HCO3 27.8 H (20.0-26.0) mmol/L ABG Hemoglobin 8.3 L (14.0-18.0) gm/dl POC Glucose 245 H 268 H (70-105) - Imaging Chest x-ray: report reviewed, image reviewed CT scan - abdomen: report reviewed, image reviewed CT scan - pelvis: report reviewed, image reviewed Assessment and Plan 59 [facility] Plan: 1. Consult for tracheostomy +/- PEG and Pt is acceptable candidate. Will discuss need for PEG with FREEMAN Rodriguez based on discharge plan. If needed, will perform in OR as CT scan shows colon overlying stomach, which could make traditional PEG approach difficult. Will have laparoscopic equipment on standby for possible lap assisted PEG if needed. 2. continue TF 3. vent weaning per critical care team 4. DVT ppx 5. Spoke with patient's sister and cousin over the telephone. The indication for the procedures along with all risks, benefits, alternatives discussed. Questions answered. They will discuss this with each other and family and have a decision in 24 hours. D/W Dr. Sullivan Thank you, please call with questions.
--- NOTE | 2020-01-10 14:38 | Progress Note ---
Assessment and Plan Acute Hypoxemic Respiratory Failure Severe Sepsis with Shock Bilateral Pneumonia PUI COVID-19 Morbid Obesity H/O CHF JOE - Surgery consult placed for tracheostomy +/- PEG - wean Dopamine per cardiology (re: persistent bradycardia) - no new issues otherwise, continue care as below; - continue bowel regimen (abdomen softer) - keep peep at 8 cm H2O re: bibasilar atelectasis - continue to wean vasopressors for MAP > 65 mmHg - prn CXR's & ABG's at this point - Daily SAT and SBT assessment as tolerated - accuchecks with glycemic control per SSI (While critically ill target blood glucose of 140-180 mg/dL; avoid hypoglycemia) - sedation for target RASS 0 to -1 - continue to wean supplemental oxygen for target O2 sat's > 92% acutely - continue bronchodilators with pulmonary hygiene per RT - VAP bundle addressed - lung protective strategies - wean per pulmonary driven protocols otherwise - continue to avoid benzodiazepine's, reduce the possibility of delirium - adjust AB's per ID rec's - prn analgesia per CPOT score - Maintenance of sleep-wake cycle - continue to avoid benzodiazepine's, reduce the possibility of delirium - continue enteral nutritional support at goal rate as tolerated - G.I. & VTE prophylaxis - PT/OT/ROM exercises - continue mobility protocols for pressure ulcer prophylaxis - repeat COVID-19 test negative - continue aspiration precautions - continue accuchecks with glycemic control per SSI (While critically ill target blood glucose of 140-180 mg/dL; avoid hypoglycemia) - Monitor hemodynamics closely - continue other care per attending / other consultants - discharge planning ongoing concurrently - LTAC evaluation requested .... Re-evaluate in am & prn CONDITION: CRITICAL PROGNOSIS: GUARDED CODE STATUS: FULL CODE The high probability of a clinically significant, sudden or life-threatening deterioration of the [respiratory, cardiovascular, GI & neurologic] system(s) required my full and direct attention, intervention and personal management. The aggregate critical care time was [33] minutes without overlap. Time includes spent on; [x] Data Review and interpretation [x] Patient assessment and monitoring of vital signs [x] Documentation [x] Medication orders and management Subjective Date of service: 01/10/20 Principal diagnosis: Ac. Hypoxemic Resp Failure; Septic Shock; Magdiel. PNA; PUI COV ID-19; CHF; JOE Interval history: Patient is seen today for: Acute Hypoxemic Respiratory Failure; Severe Sepsis with Shock; Bilateral Pneumonia; PUI COVID-19; Morbid Obesity; H/O CHF; JOE Seen and examined at bedside; 24hour events reviewed; nursing and respiratory care staff consulted; no adverse overnight events reported to me; resting peacefully in bed; remains on full MVS with peep at 8; FiO2 down to 45%; more alert today; denies pain issues; No N/V/F/C Objective Vital Signs - 12hr 01/10/20 01/10/20 01/10/20 03:00 03:30 04:00 Temperature 98.3 F Pulse Rate 50 L 46 L 44 L Pulse Rate [ Bilateral] Pulse Rate [ 74 From Monitor] Respiratory 24 24 24 Rate Respiratory Rate [Bilateral ] Blood Pressure 149/77 135/64 139/67 O2 Sat by Pulse 95 98 98 Oximetry 01/10/20 01/10/20 01/10/20 04:27 04:30 05:00 Temperature Pulse Rate 73 73 Pulse Rate [ Bilateral] Pulse Rate [ From Monitor] Respiratory 24 Rate Respiratory Rate [Bilateral ] Blood Pressure 159/88 159/88 149/81 O2 Sat by Pulse 97 98 96 Oximetry 01/10/20 01/10/20 01/10/20 05:30 06:00 06:30 Temperature Pulse Rate 60 51 L 62 Pulse Rate [ Bilateral] Pulse Rate [ From Monitor] Respiratory 25 H 24 12 Rate Respiratory Rate [Bilateral ] Blood Pressure 134/109 132/69 131/62 O2 Sat by Pulse 92 99 98 Oximetry 01/10/20 01/10/20 01/10/20 07:00 07:30 08:00 Temperature 97.9 F Pulse Rate 47 L 67 71 Pulse Rate [ Bilateral] Pulse Rate [ 71 From Monitor] Respiratory 12 15 17 Rate Respiratory Rate [Bilateral ] Blood Pressure 133/66 117/64 133/54 O2 Sat by Pulse 92 98 86 Oximetry 01/10/20 01/10/20 01/10/20 08:17 08:30 08:54 Temperature Pulse Rate 46 L 46 L 42 L Pulse Rate [ Bilateral] Pulse Rate [ From Monitor] Respiratory 10 L Rate Respiratory Rate [Bilateral ] Blood Pressure 117/54 117/51 O2 Sat by Pulse 99 100 Oximetry 01/10/20 01/10/20 01/10/20 09:00 09:30 09:36 Temperature Pulse Rate 40 L 73 Pulse Rate [ 69 Bilateral] Pulse Rate [ From Monitor] Respiratory 13 17 Rate Respiratory 24 Rate [Bilateral ] Blood Pressure 117/51 160/92 O2 Sat by Pulse 100 99 Oximetry 01/10/20 01/10/20 01/10/20 10:00 10:30 11:00 Temperature Pulse Rate 63 58 L 52 L Pulse Rate [ Bilateral] Pulse Rate [ From Monitor] Respiratory 21 17 24 Rate Respiratory Rate [Bilateral ] Blood Pressure 129/69 129/69 142/84 O2 Sat by Pulse 99 96 97 Oximetry 01/10/20 01/10/20 01/10/20 12:00 13:48 14:21 Temperature 97.9 F Pulse Rate 48 L Pulse Rate [ 44 L Bilateral] Pulse Rate [ From Monitor] Respiratory Rate Respiratory 25 H Rate [Bilateral ] Blood Pressure 111/57 O2 Sat by Pulse Oximetry Constitutional: other (elderly obese AAM with mildly increrased respiratory effort at rest on MVS) Eyes: non-icteric ENT: oropharynx moist, other (ETT 24 cm KOLBY) Neck: supple, no lymphadenopathy, no JVD Effort: mildly labored Ascultation: Bilateral: diminished breath sounds, rhonchi, other (diminished bibasilar air entry) Percussion: Bilateral: not dull Cardiovascular: regular rate and rhythm, other (S1,S2) Gastrointestinal: normoactive bowel sounds, soft, non-tender, other (protuberant) Integumentary: rash (stasis dermatyitis) Extremities: no cyanosis, pink and warm, pulses normal, no ischemia or petechiae, edema (trace) Neurologic: normal mental status, non-focal exam, pupils equal and round, CN II- XII normal, motor strength normal and (obeys simple commands) Psychiatric: mood appropriate, affect normal CBC and BMP: 01/08/20 08:03 01/09/20 08:15 ABG, PT/INR, D-dimer: ABG ABG pH 7.407 pH Units (7.350-7.450) 01/10/20 04:20 ABG pCO2 45.1 mm Hg 01/10/20 04:20 ABG pO2 95.3 mm Hg (80.0-90.0) H 01/10/20 04:20 ABG O2 Saturation 97.7 % (95.0-99.0) 01/10/20 04:20 PT/INR, D-dimer PT 14.0 Sec. (12.2-14.9) 12/18/19 14:45 INR 1.10 (0.87-1.13) 12/18/19 14:45 D-Dimer 534.45 ng/mlDDU (0-234) H 12/18/19 14:45 Abnormal lab findings: Abnormal Labs 12/18/19 12/18/19 12/18/19 12:23 14:45 14:45 WBC RBC Hgb 10.4 L Hct 35.2 L MCV MCH 25 L MCHC 30 L RDW 18.8 H Plt Count Lymph % (Auto) Hood % (Auto) 11.6 H Eos % (Auto) 4.8 H Lymph # Hood # 1.0 H Eos # Seg Neutrophils % Monocytes % (Manual) Monocytes # (Manual) D-Dimer ABG pH ABG pO2 ABG HCO3 ABG O2 Saturation ABG Base Excess ABG Hemoglobin Oxyhemoglobin Sodium Potassium Chloride Carbon Dioxide BUN Creatinine Glucose POC Glucose 328 H Lactic Acid Calcium Magnesium AST ALT Lactate Dehydrogenase Total Creatine Kinase 40 L C-Reactive Protein Albumin Urine WBC (Auto) Urine Total Protein Digoxin Salicylates Acetaminophen 12/18/19 12/18/19 12/18/19 14:45 14:45 14:45 WBC RBC Hgb Hct MCV MCH MCHC RDW Plt Count Lymph % (Auto) Hood % (Auto) Eos % (Auto) Lymph # Hood # Eos # Seg Neutrophils % Monocytes % (Manual) Monocytes # (Manual) D-Dimer 534.45 H ABG pH ABG pO2 ABG HCO3 ABG O2 Saturation ABG Base Excess ABG Hemoglobin Oxyhemoglobin Sodium 156 H Potassium Chloride 112.3 H Carbon Dioxide 31 H BUN 32 H Creatinine Glucose 328 H POC Glucose Lactic Acid Calcium Magnesium AST ALT Lactate Dehydrogenase 235 H Total Creatine Kinase C-Reactive Protein 8.50 H Albumin 3.6 L Urine WBC (Auto) Urine Total Protein Digoxin 0.3 L Salicylates < 0.3 L Acetaminophen 12/18/19 12/18/19 12/18/19 14:45 14:45 16:00 WBC RBC Hgb Hct MCV MCH MCHC RDW Plt Count Lymph % (Auto) Hood % (Auto) Eos % (Auto) Lymph # Hood # Eos # Seg Neutrophils % Monocytes % (Manual) Monocytes # (Manual) D-Dimer ABG pH ABG pO2 69.8 L ABG HCO3 31.8 H ABG O2 Saturation ABG Base Excess 5.4 H ABG Hemoglobin 10.0 L Oxyhemoglobin 92.9 L Sodium Potassium Chloride Carbon Dioxide BUN Creatinine Glucose 314 H POC Glucose Lactic Acid Calcium Magnesium AST ALT Lactate Dehydrogenase 236 H Total Creatine Kinase C-Reactive Protein 8.40 H Albumin Urine WBC (Auto) Urine Total Protein Digoxin Salicylates Acetaminophen < 5.0 L 12/18/19 12/18/19 12/18/19 16:35 18:30 22:56 WBC RBC Hgb Hct MCV MCH MCHC RDW Plt Count Lymph % (Auto) Hood % (Auto) Eos % (Auto) Lymph # Hood # Eos # Seg Neutrophils % Monocytes % (Manual) Monocytes # (Manual) D-Dimer ABG pH ABG pO2 ABG HCO3 ABG O2 Saturation ABG Base Excess ABG Hemoglobin Oxyhemoglobin Sodium Potassium Chloride Carbon Dioxide BUN Creatinine Glucose POC Glucose 310 H 353 H Lactic Acid 2.50 H* Calcium Magnesium AST ALT Lactate Dehydrogenase Total Creatine Kinase C-Reactive Protein Albumin Urine WBC (Auto) Urine Total Protein Digoxin Salicylates Acetaminophen 12/19/19 12/19/19 12/19/19 04:13 04:13 06:00 WBC RBC Hgb 10.0 L Hct 34.2 L MCV MCH 25 L MCHC 29 L RDW 19.0 H Plt Count Lymph % (Auto) Hood % (Auto) 10.1 H Eos % (Auto) Lymph # Hood # 1.1 H Eos # Seg Neutrophils % 71.8 H Monocytes % (Manual) Monocytes # (Manual) D-Dimer ABG pH ABG pO2 186.5 H ABG HCO3 27.8 H ABG O2 Saturation 99.1 H ABG Base Excess ABG Hemoglobin 10.4 L Oxyhemoglobin Sodium 157 H Potassium Chloride 119.1 H Carbon Dioxide BUN 26 H Creatinine Glucose 302 H POC Glucose Lactic Acid Calcium 7.9 L Magnesium AST 85 H ALT 61 H Lactate Dehydrogenase Total Creatine Kinase C-Reactive Protein Albumin 3.0 L Urine WBC (Auto) Urine Total Protein Digoxin Salicylates Acetaminophen 12/19/19 12/19/19 12/19/19 08:30 11:55 16:50 WBC RBC Hgb Hct MCV MCH MCHC RDW Plt Count Lymph % (Auto) Hood % (Auto) Eos % (Auto) Lymph # Hood # Eos # Seg Neutrophils % Monocytes % (Manual) Monocytes # (Manual) D-Dimer ABG pH ABG pO2 ABG HCO3 ABG O2 Saturation ABG Base Excess ABG Hemoglobin Oxyhemoglobin Sodium Potassium Chloride Carbon Dioxide BUN Creatinine Glucose POC Glucose 264 H 251 H Lactic Acid Calcium Magnesium AST ALT Lactate Dehydrogenase Total Creatine Kinase C-Reactive Protein Albumin Urine WBC (Auto) 7.0 H Urine Total Protein Digoxin Salicylates Acetaminophen 12/19/19 12/19/19 12/20/19 17:41 23:42 03:35 WBC RBC Hgb Hct MCV MCH MCHC RDW Plt Count Lymph % (Auto) Hood % (Auto) Eos % (Auto) Lymph # Hood # Eos # Seg Neutrophils % Monocytes % (Manual) Monocytes # (Manual) D-Dimer ABG pH ABG pO2 ABG HCO3 27.7 H ABG O2 Saturation ABG Base Excess ABG Hemoglobin 11.6 L Oxyhemoglobin 94.9 L Sodium Potassium Chloride Carbon Dioxide BUN Creatinine Glucose POC Glucose 180 H 205 H Lactic Acid Calcium Magnesium AST ALT Lactate Dehydrogenase Total Creatine Kinase C-Reactive Protein Albumin Urine WBC (Auto) Urine Total Protein Digoxin Salicylates Acetaminophen 12/20/19 12/20/19 12/20/19 04:45 04:45 05:27 WBC RBC Hgb 9.4 L Hct 31.4 L MCV MCH 25 L MCHC 30 L RDW 19.4 H Plt Count Lymph % (Auto) Hood % (Auto) 10.2 H Eos % (Auto) 6.0 H Lymph # 0.9 L Hood # Eos # Seg Neutrophils % Monocytes % (Manual) Monocytes # (Manual) D-Dimer ABG pH ABG pO2 ABG HCO3 ABG O2 Saturation ABG Base Excess ABG Hemoglobin Oxyhemoglobin Sodium 153 H Potassium Chloride 114.6 H Carbon Dioxide BUN Creatinine Glucose 170 H POC Glucose 188 H Lactic Acid Calcium 7.9 L Magnesium AST ALT Lactate Dehydrogenase Total Creatine Kinase C-Reactive Protein Albumin Urine WBC (Auto) Urine Total Protein Digoxin Salicylates Acetaminophen 12/20/19 12/20/19 12/21/19 12:26 18:20 00:20 WBC RBC Hgb Hct MCV MCH MCHC RDW Plt Count Lymph % (Auto) Hood % (Auto) Eos % (Auto) Lymph # Hood # Eos # Seg Neutrophils % Monocytes % (Manual) Monocytes # (Manual) D-Dimer ABG pH ABG pO2 ABG HCO3 ABG O2 Saturation ABG Base Excess ABG Hemoglobin Oxyhemoglobin Sodium Potassium Chloride Carbon Dioxide BUN Creatinine Glucose POC Glucose 200 H 263 H 218 H Lactic Acid Calcium Magnesium AST ALT Lactate Dehydrogenase Total Creatine Kinase C-Reactive Protein Albumin Urine WBC (Auto) Urine Total Protein Digoxin Salicylates Acetaminophen 12/21/19 12/21/19 12/21/19 04:38 05:26 12:35 WBC RBC Hgb Hct MCV MCH MCHC RDW Plt Count Lymph % (Auto) Hood % (Auto) Eos % (Auto) Lymph # Hood # Eos # Seg Neutrophils % Monocytes % (Manual) Monocytes # (Manual) D-Dimer ABG pH ABG pO2 ABG HCO3 ABG O2 Saturation ABG Base Excess ABG Hemoglobin Oxyhemoglobin Sodium 149 H Potassium 3.5 L Chloride 110.5 H Carbon Dioxide BUN Creatinine Glucose 158 H POC Glucose 193 H 193 H Lactic Acid Calcium Magnesium AST ALT Lactate Dehydrogenase Total Creatine Kinase C-Reactive Protein Albumin Urine WBC (Auto) Urine Total Protein Digoxin Salicylates Acetaminophen 12/21/19 12/22/19 12/22/19 18:29 00:03 05:15 WBC RBC Hgb 10.3 L Hct 34.7 L MCV MCH 25 L MCHC 30 L RDW 19.4 H Plt Count Lymph % (Auto) 9.0 L Hood % (Auto) 12.3 H Eos % (Auto) 5.0 H Lymph # 0.5 L Hood # Eos # Seg Neutrophils % 73.2 H Monocytes % (Manual) Monocytes # (Manual) D-Dimer ABG pH ABG pO2 ABG HCO3 ABG O2 Saturation ABG Base Excess ABG Hemoglobin Oxyhemoglobin Sodium Potassium Chloride Carbon Dioxide BUN Creatinine Glucose POC Glucose 186 H 143 H Lactic Acid Calcium Magnesium AST ALT Lactate Dehydrogenase Total Creatine Kinase C-Reactive Protein Albumin Urine WBC (Auto) Urine Total Protein Digoxin Salicylates Acetaminophen 12/22/19 12/22/19 12/22/19 05:15 06:02 12:13 WBC RBC Hgb Hct MCV MCH MCHC RDW Plt Count Lymph % (Auto) Hood % (Auto) Eos % (Auto) Lymph # Hood # Eos # Seg Neutrophils % Monocytes % (Manual) Monocytes # (Manual) D-Dimer ABG pH ABG pO2 ABG HCO3 ABG O2 Saturation ABG Base Excess ABG Hemoglobin Oxyhemoglobin Sodium 152 H Potassium Chloride 113.5 H Carbon Dioxide BUN Creatinine Glucose 126 H POC Glucose 144 H 159 H Lactic Acid Calcium Magnesium AST ALT Lactate Dehydrogenase Total Creatine Kinase C-Reactive Protein Albumin Urine WBC (Auto) Urine Total Protein Digoxin Salicylates Acetaminophen 12/22/19 12/22/19 12/23/19 18:03 23:50 05:27 WBC RBC Hgb Hct MCV MCH MCHC RDW Plt Count Lymph % (Auto) Hood % (Auto) Eos % (Auto) Lymph # Hood # Eos # Seg Neutrophils % Monocytes % (Manual) Monocytes # (Manual) D-Dimer ABG pH ABG pO2 ABG HCO3 ABG O2 Saturation ABG Base Excess ABG Hemoglobin Oxyhemoglobin Sodium Potassium Chloride Carbon Dioxide BUN Creatinine Glucose POC Glucose 140 H 227 H 185 H Lactic Acid Calcium Magnesium AST ALT Lactate Dehydrogenase Total Creatine Kinase C-Reactive Protein Albumin Urine WBC (Auto) Urine Total Protein Digoxin Salicylates Acetaminophen 12/23/19 12/23/19 12/23/19 12:13 16:05 16:40 WBC RBC Hgb Hct MCV MCH MCHC RDW Plt Count Lymph % (Auto) Hood % (Auto) Eos % (Auto) Lymph # Hood # Eos # Seg Neutrophils % Monocytes % (Manual) Monocytes # (Manual) D-Dimer ABG pH 7.259 L ABG pO2 76.2 L ABG HCO3 30.6 H ABG O2 Saturation 94.6 L ABG Base Excess ABG Hemoglobin 11.5 L Oxyhemoglobin 92.2 L Sodium 163 H* D Potassium 3.4 L Chloride 120.1 H Carbon Dioxide BUN Creatinine Glucose 162 H POC Glucose 132 H Lactic Acid Calcium Magnesium AST ALT Lactate Dehydrogenase Total Creatine Kinase C-Reactive Protein Albumin Urine WBC (Auto) Urine Total Protein Digoxin Salicylates Acetaminophen 12/23/19 12/24/19 12/24/19 17:53 00:48 04:20 WBC RBC Hgb Hct MCV MCH MCHC RDW Plt Count Lymph % (Auto) Hood % (Auto) Eos % (Auto) Lymph # Hood # Eos # Seg Neutrophils % Monocytes % (Manual) Monocytes # (Manual) D-Dimer ABG pH ABG pO2 ABG HCO3 30.4 H ABG O2 Saturation ABG Base Excess 3.9 H ABG Hemoglobin 10.3 L Oxyhemoglobin 94.4 L Sodium Potassium Chloride Carbon Dioxide BUN Creatinine Glucose POC Glucose 180 H 174 H Lactic Acid Calcium Magnesium AST ALT Lactate Dehydrogenase Total Creatine Kinase C-Reactive Protein Albumin Urine WBC (Auto) Urine Total Protein Digoxin Salicylates Acetaminophen 12/24/19 12/24/19 12/24/19 04:53 04:53 11:50 WBC RBC Hgb 9.7 L Hct 33.2 L MCV MCH 25 L MCHC 29 L RDW 20.1 H Plt Count Lymph % (Auto) Hood % (Auto) Eos % (Auto) Lymph # Hood # Eos # Seg Neutrophils % Monocytes % (Manual) 15.0 H Monocytes # (Manual) 0.9 H D-Dimer ABG pH ABG pO2 ABG HCO3 ABG O2 Saturation ABG Base Excess ABG Hemoglobin Oxyhemoglobin Sodium 163 H* Potassium 3.2 L Chloride 122.6 H Carbon Dioxide BUN Creatinine Glucose 168 H POC Glucose 190 H Lactic Acid Calcium Magnesium AST ALT Lactate Dehydrogenase Total Creatine Kinase C-Reactive Protein Albumin Urine WBC (Auto) Urine Total Protein Digoxin Salicylates Acetaminophen 12/24/19 12/24/19 12/24/19 15:00 16:28 21:15 WBC RBC Hgb Hct MCV MCH MCHC RDW Plt Count Lymph % (Auto) Hood % (Auto) Eos % (Auto) Lymph # Hood # Eos # Seg Neutrophils % Monocytes % (Manual) Monocytes # (Manual) D-Dimer ABG pH ABG pO2 ABG HCO3 ABG O2 Saturation ABG Base Excess ABG Hemoglobin Oxyhemoglobin Sodium 165 H* D 163 H* Potassium Chloride Carbon Dioxide BUN Creatinine Glucose POC Glucose 160 H Lactic Acid Calcium Magnesium AST ALT Lactate Dehydrogenase Total Creatine Kinase C-Reactive Protein Albumin Urine WBC (Auto) Urine Total Protein Digoxin Salicylates Acetaminophen 12/25/19 12/25/19 12/25/19 00:31 05:38 05:46 WBC RBC Hgb 9.7 L Hct 32.5 L MCV MCH 25 L MCHC 30 L RDW 19.4 H Plt Count Lymph % (Auto) Hood % (Auto) Eos % (Auto) Lymph # Hood # Eos # Seg Neutrophils % Monocytes % (Manual) Monocytes # (Manual) D-Dimer ABG pH ABG pO2 ABG HCO3 ABG O2 Saturation ABG Base Excess ABG Hemoglobin Oxyhemoglobin Sodium Potassium Chloride Carbon Dioxide BUN Creatinine Glucose POC Glucose 182 H 194 H Lactic Acid Calcium Magnesium AST ALT Lactate Dehydrogenase Total Creatine Kinase C-Reactive Protein Albumin Urine WBC (Auto) Urine Total Protein Digoxin Salicylates Acetaminophen 12/25/19 12/25/19 12/25/19 05:46 11:35 11:38 WBC RBC Hgb Hct MCV MCH MCHC RDW Plt Count Lymph % (Auto) Hood % (Auto) Eos % (Auto) Lymph # Hood # Eos # Seg Neutrophils % Monocytes % (Manual) Monocytes # (Manual) D-Dimer ABG pH 7.330 L ABG pO2 65.7 L ABG HCO3 32.6 H ABG O2 Saturation 92.5 L ABG Base Excess 5.3 H ABG Hemoglobin 10.4 L Oxyhemoglobin 90.0 L Sodium 166 H* Potassium 2.9 L* Chloride 124.5 H Carbon Dioxide BUN Creatinine Glucose 190 H POC Glucose 192 H Lactic Acid Calcium Magnesium AST ALT Lactate Dehydrogenase Total Creatine Kinase C-Reactive Protein Albumin Urine WBC (Auto) Urine Total Protein Digoxin Salicylates Acetaminophen 12/25/19 12/25/19 12/25/19 13:01 16:45 17:20 WBC RBC Hgb Hct MCV MCH MCHC RDW Plt Count Lymph % (Auto) Hood % (Auto) Eos % (Auto) Lymph # Hood # Eos # Seg Neutrophils % Monocytes % (Manual) Monocytes # (Manual) D-Dimer ABG pH 7.296 L ABG pO2 101.5 H ABG HCO3 33.2 H ABG O2 Saturation ABG Base Excess 5.3 H ABG Hemoglobin 9.6 L Oxyhemoglobin 94.6 L Sodium 174 H* Potassium Chloride Carbon Dioxide BUN Creatinine Glucose POC Glucose Lactic Acid Calcium Magnesium AST ALT Lactate Dehydrogenase Total Creatine Kinase C-Reactive Protein Albumin Urine WBC (Auto) Urine Total Protein < 4 L Digoxin Salicylates Acetaminophen 12/25/19 12/25/19 12/26/19 17:48 18:50 00:43 WBC RBC Hgb Hct MCV MCH MCHC RDW Plt Count Lymph % (Auto) Hood % (Auto) Eos % (Auto) Lymph # Hood # Eos # Seg Neutrophils % Monocytes % (Manual) Monocytes # (Manual) D-Dimer ABG pH ABG pO2 ABG HCO3 ABG O2 Saturation ABG Base Excess ABG Hemoglobin Oxyhemoglobin Sodium 166 H* 164 H* Potassium Chloride 127.3 H Carbon Dioxide BUN Creatinine Glucose 220 H POC Glucose 252 H Lactic Acid Calcium Magnesium AST ALT Lactate Dehydrogenase Total Creatine Kinase C-Reactive Protein Albumin Urine WBC (Auto) Urine Total Protein Digoxin Salicylates Acetaminophen 12/26/19 12/26/19 12/26/19 05:31 08:07 08:07 WBC 4.3 L RBC Hgb 9.6 L Hct 32.1 L MCV MCH 26 L MCHC 30 L RDW 20.5 H Plt Count Lymph % (Auto) Hood % (Auto) Eos % (Auto) Lymph # Hood # Eos # Seg Neutrophils % Monocytes % (Manual) Monocytes # (Manual) D-Dimer ABG pH ABG pO2 ABG HCO3 ABG O2 Saturation ABG Base Excess ABG Hemoglobin Oxyhemoglobin Sodium 162 H* Potassium Chloride 122.1 H Carbon Dioxide BUN Creatinine Glucose 247 H POC Glucose 187 H Lactic Acid Calcium Magnesium AST ALT Lactate Dehydrogenase Total Creatine Kinase C-Reactive Protein Albumin Urine WBC (Auto) Urine Total Protein Digoxin Salicylates Acetaminophen 12/26/19 12/26/19 12/26/19 08:07 12:20 16:25 WBC RBC Hgb Hct MCV MCH MCHC RDW Plt Count Lymph % (Auto) Hood % (Auto) Eos % (Auto) Lymph # Hood # Eos # Seg Neutrophils % Monocytes % (Manual) Monocytes # (Manual) D-Dimer ABG pH 7.290 L ABG pO2 73.2 L ABG HCO3 33.2 H ABG O2 Saturation 94.9 L ABG Base Excess 5.2 H ABG Hemoglobin 10.0 L Oxyhemoglobin 92.5 L Sodium 159 H Potassium Chloride Carbon Dioxide BUN Creatinine Glucose POC Glucose 234 H Lactic Acid Calcium Magnesium AST ALT Lactate Dehydrogenase Total Creatine Kinase C-Reactive Protein Albumin Urine WBC (Auto) Urine Total Protein Digoxin Salicylates Acetaminophen 12/26/19 12/26/19 12/26/19 17:33 22:35 23:30 WBC RBC Hgb Hct MCV MCH MCHC RDW Plt Count Lymph % (Auto) Hood % (Auto) Eos % (Auto) Lymph # Hood # Eos # Seg Neutrophils % Monocytes % (Manual) Monocytes # (Manual) D-Dimer ABG pH ABG pO2 ABG HCO3 ABG O2 Saturation ABG Base Excess ABG Hemoglobin Oxyhemoglobin Sodium Potassium Chloride Carbon Dioxide BUN Creatinine Glucose POC Glucose 244 H 208 H 287 H Lactic Acid Calcium Magnesium AST ALT Lactate Dehydrogenase Total Creatine Kinase C-Reactive Protein Albumin Urine WBC (Auto) Urine Total Protein Digoxin Salicylates Acetaminophen 12/27/19 12/27/19 12/27/19 03:48 03:48 03:48 WBC RBC Hgb 10.1 L Hct 35.4 L MCV MCH 25 L MCHC 29 L RDW 20.1 H Plt Count Lymph % (Auto) Hood % (Auto) Eos % (Auto) Lymph # Hood # Eos # Seg Neutrophils % Monocytes % (Manual) Monocytes # (Manual) D-Dimer ABG pH ABG pO2 ABG HCO3 ABG O2 Saturation ABG Base Excess ABG Hemoglobin Oxyhemoglobin Sodium 160 H Potassium Chloride 118.8 H Carbon Dioxide 33 H BUN Creatinine Glucose 217 H POC Glucose Lactic Acid Calcium Magnesium 2.70 H AST ALT Lactate Dehydrogenase Total Creatine Kinase C-Reactive Protein Albumin Urine WBC (Auto) Urine Total Protein Digoxin Salicylates Acetaminophen 12/27/19 12/27/19 12/27/19 05:50 11:58 16:05 WBC RBC Hgb Hct MCV MCH MCHC RDW Plt Count Lymph % (Auto) Hood % (Auto) Eos % (Auto) Lymph # Hood # Eos # Seg Neutrophils % Monocytes % (Manual) Monocytes # (Manual) D-Dimer ABG pH 7.180 L* ABG pO2 73.6 L ABG HCO3 34.8 H ABG O2 Saturation 92.7 L ABG Base Excess 3.8 H ABG Hemoglobin 12.0 L Oxyhemoglobin 90.2 L Sodium Potassium Chloride Carbon Dioxide BUN Creatinine Glucose POC Glucose 224 H 218 H Lactic Acid Calcium Magnesium AST ALT Lactate Dehydrogenase Total Creatine Kinase C-Reactive Protein Albumin Urine WBC (Auto) Urine Total Protein Digoxin Salicylates Acetaminophen 12/27/19 12/27/19 12/27/19 18:05 19:50 21:53 WBC RBC Hgb Hct MCV MCH MCHC RDW Plt Count Lymph % (Auto) Hood % (Auto) Eos % (Auto) Lymph # Hood # Eos # Seg Neutrophils % Monocytes % (Manual) Monocytes # (Manual) D-Dimer ABG pH 7.328 L ABG pO2 49.9 L ABG HCO3 33.3 H ABG O2 Saturation 87.1 L ABG Base Excess 5.7 H ABG Hemoglobin 11.2 L Oxyhemoglobin 84.8 L Sodium Potassium Chloride Carbon Dioxide BUN Creatinine Glucose POC Glucose 214 H 178 H Lactic Acid Calcium Magnesium AST ALT Lactate Dehydrogenase Total Creatine Kinase C-Reactive Protein Albumin Urine WBC (Auto) Urine Total Protein Digoxin Salicylates Acetaminophen 12/28/19 12/28/19 12/28/19 00:42 04:37 04:37 WBC RBC Hgb 9.8 L Hct 33.5 L MCV MCH 25 L MCHC 29 L RDW 21.1 H Plt Count Lymph % (Auto) Hood % (Auto) Eos % (Auto) Lymph # Hood # Eos # Seg Neutrophils % Monocytes % (Manual) Monocytes # (Manual) D-Dimer ABG pH ABG pO2 ABG HCO3 ABG O2 Saturation ABG Base Excess ABG Hemoglobin Oxyhemoglobin Sodium 157 H Potassium 3.4 L Chloride 117.5 H Carbon Dioxide BUN Creatinine Glucose 193 H POC Glucose 157 H Lactic Acid Calcium Magnesium AST ALT Lactate Dehydrogenase Total Creatine Kinase C-Reactive Protein Albumin Urine WBC (Auto) Urine Total Protein Digoxin Salicylates Acetaminophen 12/28/19 12/28/19 12/28/19 04:52 05:19 12:05 WBC RBC Hgb Hct MCV MCH MCHC RDW Plt Count Lymph % (Auto) Hood % (Auto) Eos % (Auto) Lymph # Hood # Eos # Seg Neutrophils % Monocytes % (Manual) Monocytes # (Manual) D-Dimer ABG pH ABG pO2 51.7 L ABG HCO3 28.7 H ABG O2 Saturation 89.9 L ABG Base Excess 4.1 H ABG Hemoglobin 9.7 L Oxyhemoglobin 87.7 L Sodium Potassium Chloride Carbon Dioxide BUN Creatinine Glucose POC Glucose 202 H 248 H Lactic Acid Calcium Magnesium AST ALT Lactate Dehydrogenase Total Creatine Kinase C-Reactive Protein Albumin Urine WBC (Auto) Urine Total Protein Digoxin Salicylates Acetaminophen 12/28/19 12/28/19 12/28/19 18:11 21:15 23:22 WBC RBC Hgb Hct MCV MCH MCHC RDW Plt Count Lymph % (Auto) Hood % (Auto) Eos % (Auto) Lymph # Hood # Eos # Seg Neutrophils % Monocytes % (Manual) Monocytes # (Manual) D-Dimer ABG pH ABG pO2 ABG HCO3 ABG O2 Saturation ABG Base Excess ABG Hemoglobin Oxyhemoglobin Sodium Potassium Chloride Carbon Dioxide BUN Creatinine Glucose POC Glucose 226 H 217 H 227 H Lactic Acid Calcium Magnesium AST ALT Lactate Dehydrogenase Total Creatine Kinase C-Reactive Protein Albumin Urine WBC (Auto) Urine Total Protein Digoxin Salicylates Acetaminophen 12/29/19 12/29/19 12/29/19 04:09 04:59 04:59 WBC 11.1 H RBC Hgb 9.3 L Hct 31.1 L MCV 81 L MCH 24 L MCHC 30 L RDW 19.9 H Plt Count Lymph % (Auto) Hood % (Auto) Eos % (Auto) Lymph # Hood # Eos # Seg Neutrophils % Monocytes % (Manual) Monocytes # (Manual) D-Dimer ABG pH 7.473 H ABG pO2 126.1 H ABG HCO3 29.2 H ABG O2 Saturation ABG Base Excess 5.1 H ABG Hemoglobin 8.4 L Oxyhemoglobin Sodium 157 H Potassium 3.2 L Chloride 118.2 H Carbon Dioxide BUN Creatinine 1.7 H Glucose 229 H POC Glucose Lactic Acid Calcium Magnesium AST ALT Lactate Dehydrogenase Total Creatine Kinase C-Reactive Protein Albumin Urine WBC (Auto) Urine Total Protein Digoxin Salicylates Acetaminophen 12/29/19 12/29/19 12/29/19 05:15 12:13 17:59 WBC RBC Hgb Hct MCV MCH MCHC RDW Plt Count Lymph % (Auto) Hood % (Auto) Eos % (Auto) Lymph # Hood # Eos # Seg Neutrophils % Monocytes % (Manual) Monocytes # (Manual) D-Dimer ABG pH ABG pO2 ABG HCO3 ABG O2 Saturation ABG Base Excess ABG Hemoglobin Oxyhemoglobin Sodium Potassium Chloride Carbon Dioxide BUN Creatinine Glucose POC Glucose 221 H 392 H 365 H Lactic Acid Calcium Magnesium AST ALT Lactate Dehydrogenase Total Creatine Kinase C-Reactive Protein Albumin Urine WBC (Auto) Urine Total Protein Digoxin Salicylates Acetaminophen 12/29/19 12/29/19 12/30/19 20:25 23:38 04:45 WBC RBC Hgb Hct MCV MCH MCHC RDW Plt Count Lymph % (Auto) Hood % (Auto) Eos % (Auto) Lymph # Hood # Eos # Seg Neutrophils % Monocytes % (Manual) Monocytes # (Manual) D-Dimer ABG pH 7.261 L 7.343 L ABG pO2 60.3 L 54.3 L ABG HCO3 32.1 H 30.9 H ABG O2 Saturation 87.6 L 88.3 L ABG Base Excess 3.7 H 4.0 H ABG Hemoglobin 9.7 L 11.6 L Oxyhemoglobin 85.2 L 86.0 L Sodium Potassium Chloride Carbon Dioxide BUN Creatinine Glucose POC Glucose 402 H Lactic Acid Calcium Magnesium AST ALT Lactate Dehydrogenase Total Creatine Kinase C-Reactive Protein Albumin Urine WBC (Auto) Urine Total Protein Digoxin Salicylates Acetaminophen 12/30/19 12/30/19 12/30/19 05:06 05:06 05:06 WBC 11.7 H RBC Hgb 9.4 L Hct 32.4 L MCV 83 L MCH 24 L MCHC 29 L RDW 20.2 H Plt Count Lymph % (Auto) Hood % (Auto) Eos % (Auto) Lymph # Hood # Eos # Seg Neutrophils % Monocytes % (Manual) Monocytes # (Manual) D-Dimer ABG pH ABG pO2 ABG HCO3 ABG O2 Saturation ABG Base Excess ABG Hemoglobin Oxyhemoglobin Sodium 159 H Potassium 3.2 L Chloride 120.1 H Carbon Dioxide 31 H BUN Creatinine 1.9 H Glucose 404 H POC Glucose Lactic Acid Calcium Magnesium 2.60 H AST ALT Lactate Dehydrogenase Total Creatine Kinase C-Reactive Protein Albumin Urine WBC (Auto) Urine Total Protein Digoxin Salicylates Acetaminophen 12/30/19 12/30/19 12/30/19 06:26 12:29 13:44 WBC RBC Hgb Hct MCV MCH MCHC RDW Plt Count Lymph % (Auto) Hood % (Auto) Eos % (Auto) Lymph # Hood # Eos # Seg Neutrophils % Monocytes % (Manual) Monocytes # (Manual) D-Dimer ABG pH ABG pO2 ABG HCO3 ABG O2 Saturation ABG Base Excess ABG Hemoglobin Oxyhemoglobin Sodium Potassium Chloride Carbon Dioxide BUN Creatinine Glucose POC Glucose 399 H 469 H > 500 H Lactic Acid Calcium Magnesium AST ALT Lactate Dehydrogenase Total Creatine Kinase C-Reactive Protein Albumin Urine WBC (Auto) Urine Total Protein Digoxin Salicylates Acetaminophen 12/30/19 12/30/19 12/30/19 13:51 16:32 18:05 WBC RBC Hgb Hct MCV MCH MCHC RDW Plt Count Lymph % (Auto) Hood % (Auto) Eos % (Auto) Lymph # Hood # Eos # Seg Neutrophils % Monocytes % (Manual) Monocytes # (Manual) D-Dimer ABG pH ABG pO2 ABG HCO3 ABG O2 Saturation ABG Base Excess ABG Hemoglobin Oxyhemoglobin Sodium Potassium Chloride Carbon Dioxide BUN Creatinine Glucose POC Glucose > 500 H 445 H 429 H Lactic Acid Calcium Magnesium AST ALT Lactate Dehydrogenase Total Creatine Kinase C-Reactive Protein Albumin Urine WBC (Auto) Urine Total Protein Digoxin Salicylates Acetaminophen 12/30/19 12/30/19 12/31/19 21:42 Unknown 00:00 WBC RBC Hgb Hct MCV MCH MCHC RDW Plt Count Lymph % (Auto) Hood % (Auto) Eos % (Auto) Lymph # Hood # Eos # Seg Neutrophils % Monocytes % (Manual) Monocytes # (Manual) D-Dimer ABG pH ABG pO2 ABG HCO3 ABG O2 Saturation ABG Base Excess ABG Hemoglobin Oxyhemoglobin Sodium Potassium Chloride Carbon Dioxide BUN Creatinine Glucose 498 H POC Glucose 371 H 452 H Lactic Acid Calcium Magnesium AST ALT Lactate Dehydrogenase Total Creatine Kinase C-Reactive Protein Albumin Urine WBC (Auto) Urine Total Protein Digoxin Salicylates Acetaminophen 12/31/19 12/31/19 12/31/19 04:31 05:42 08:01 WBC RBC Hgb Hct MCV MCH MCHC RDW Plt Count Lymph % (Auto) Hood % (Auto) Eos % (Auto) Lymph # Hood # Eos # Seg Neutrophils % Monocytes % (Manual) Monocytes # (Manual) D-Dimer ABG pH 7.251 L ABG pO2 62.4 L ABG HCO3 31.1 H ABG O2 Saturation 88.7 L ABG Base Excess ABG Hemoglobin 8.7 L Oxyhemoglobin 86.4 L Sodium Potassium Chloride Carbon Dioxide BUN Creatinine Glucose POC Glucose 443 H 443 H Lactic Acid Calcium Magnesium AST ALT Lactate Dehydrogenase Total Creatine Kinase C-Reactive Protein Albumin Urine WBC (Auto) Urine Total Protein Digoxin Salicylates Acetaminophen 12/31/19 12/31/19 12/31/19 09:08 10:00 11:50 WBC RBC Hgb Hct MCV MCH MCHC RDW Plt Count Lymph % (Auto) Hood % (Auto) Eos % (Auto) Lymph # Hood # Eos # Seg Neutrophils % Monocytes % (Manual) Monocytes # (Manual) D-Dimer ABG pH 7.325 L ABG pO2 97.2 H ABG HCO3 30.1 H ABG O2 Saturation ABG Base Excess 3.4 H ABG Hemoglobin 8.3 L Oxyhemoglobin 94.7 L Sodium 151 H D Potassium 3.2 L Chloride 113.0 H Carbon Dioxide BUN 23 H Creatinine 1.8 H Glucose 373 H POC Glucose 465 H Lactic Acid Calcium Magnesium AST ALT Lactate Dehydrogenase Total Creatine Kinase C-Reactive Protein Albumin Urine WBC (Auto) Urine Total Protein Digoxin Salicylates Acetaminophen 12/31/19 12/31/19 12/31/19 12:25 13:33 18:30 WBC RBC Hgb Hct MCV MCH MCHC RDW Plt Count Lymph % (Auto) Hood % (Auto) Eos % (Auto) Lymph # Hood # Eos # Seg Neutrophils % Monocytes % (Manual) Monocytes # (Manual) D-Dimer ABG pH ABG pO2 ABG HCO3 ABG O2 Saturation ABG Base Excess ABG Hemoglobin Oxyhemoglobin Sodium Potassium Chloride Carbon Dioxide BUN Creatinine Glucose POC Glucose 379 H 311 H 349 H Lactic Acid Calcium Magnesium AST ALT Lactate Dehydrogenase Total Creatine Kinase C-Reactive Protein Albumin Urine WBC (Auto) Urine Total Protein Digoxin Salicylates Acetaminophen 12/31/19 12/31/19 01/01/20 22:29 23:30 02:58 WBC RBC Hgb Hct MCV MCH MCHC RDW Plt Count Lymph % (Auto) Hood % (Auto) Eos % (Auto) Lymph # Hood # Eos # Seg Neutrophils % Monocytes % (Manual) Monocytes # (Manual) D-Dimer ABG pH ABG pO2 ABG HCO3 ABG O2 Saturation ABG Base Excess ABG Hemoglobin Oxyhemoglobin Sodium Potassium Chloride Carbon Dioxide BUN Creatinine Glucose POC Glucose 256 H 266 H 248 H Lactic Acid Calcium Magnesium AST ALT Lactate Dehydrogenase Total Creatine Kinase C-Reactive Protein Albumin Urine WBC (Auto) Urine Total Protein Digoxin Salicylates Acetaminophen 01/01/20 01/01/20 01/01/20 04:19 06:56 10:52 WBC RBC Hgb Hct MCV MCH MCHC RDW Plt Count Lymph % (Auto) Hood % (Auto) Eos % (Auto) Lymph # Hood # Eos # Seg Neutrophils % Monocytes % (Manual) Monocytes # (Manual) D-Dimer ABG pH ABG pO2 90.7 H ABG HCO3 29.1 H ABG O2 Saturation ABG Base Excess 3.8 H ABG Hemoglobin 8.1 L Oxyhemoglobin 94.5 L Sodium Potassium Chloride Carbon Dioxide BUN Creatinine Glucose POC Glucose 303 H 244 H Lactic Acid Calcium Magnesium AST ALT Lactate Dehydrogenase Total Creatine Kinase C-Reactive Protein Albumin Urine WBC (Auto) Urine Total Protein Digoxin Salicylates Acetaminophen 01/01/20 01/01/20 01/01/20 13:39 14:49 18:42 WBC RBC Hgb Hct MCV MCH MCHC RDW Plt Count Lymph % (Auto) Hood % (Auto) Eos % (Auto) Lymph # Hood # Eos # Seg Neutrophils % Monocytes % (Manual) Monocytes # (Manual) D-Dimer ABG pH ABG pO2 ABG HCO3 ABG O2 Saturation ABG Base Excess ABG Hemoglobin Oxyhemoglobin Sodium 147 H Potassium Chloride 107.1 H Carbon Dioxide BUN 28 H Creatinine Glucose 207 H POC Glucose 263 H 188 H Lactic Acid Calcium Magnesium AST ALT Lactate Dehydrogenase Total Creatine Kinase C-Reactive Protein Albumin Urine WBC (Auto) Urine Total Protein Digoxin Salicylates Acetaminophen 01/02/20 01/02/20 01/02/20 02:22 03:58 05:00 WBC RBC 3.31 L Hgb 8.0 L Hct 26.9 L MCV 81 L MCH 24 L MCHC 30 L RDW 19.4 H Plt Count Lymph % (Auto) Hood % (Auto) 9.4 H Eos % (Auto) 11.2 H Lymph # Hood # Eos # 0.8 H Seg Neutrophils % Monocytes % (Manual) Monocytes # (Manual) D-Dimer ABG pH ABG pO2 63.0 L ABG HCO3 31.6 H ABG O2 Saturation 91.8 L ABG Base Excess 5.5 H ABG Hemoglobin 8.6 L Oxyhemoglobin 89.6 L Sodium Potassium Chloride Carbon Dioxide BUN Creatinine Glucose POC Glucose 196 H Lactic Acid Calcium Magnesium AST ALT Lactate Dehydrogenase Total Creatine Kinase C-Reactive Protein Albumin Urine WBC (Auto) Urine Total Protein Digoxin Salicylates Acetaminophen 01/02/20 01/02/20 01/02/20 05:40 10:26 13:57 WBC RBC Hgb Hct MCV MCH MCHC RDW Plt Count Lymph % (Auto) Hood % (Auto) Eos % (Auto) Lymph # Hood # Eos # Seg Neutrophils % Monocytes % (Manual) Monocytes # (Manual) D-Dimer ABG pH ABG pO2 ABG HCO3 ABG O2 Saturation ABG Base Excess ABG Hemoglobin Oxyhemoglobin Sodium Potassium Chloride Carbon Dioxide BUN Creatinine Glucose POC Glucose 189 H 157 H 178 H Lactic Acid Calcium Magnesium AST ALT Lactate Dehydrogenase Total Creatine Kinase C-Reactive Protein Albumin Urine WBC (Auto) Urine Total Protein Digoxin Salicylates Acetaminophen 01/02/20 01/03/20 01/03/20 21:27 03:12 05:26 WBC RBC Hgb Hct MCV MCH MCHC RDW Plt Count Lymph % (Auto) Hood % (Auto) Eos % (Auto) Lymph # Hood # Eos # Seg Neutrophils % Monocytes % (Manual) Monocytes # (Manual) D-Dimer ABG pH 7.473 H ABG pO2 109.6 H ABG HCO3 30.4 H ABG O2 Saturation ABG Base Excess 6.2 H ABG Hemoglobin 9.9 L Oxyhemoglobin Sodium Potassium Chloride Carbon Dioxide BUN Creatinine Glucose POC Glucose 131 H 133 H Lactic Acid Calcium Magnesium AST ALT Lactate Dehydrogenase Total Creatine Kinase C-Reactive Protein Albumin Urine WBC (Auto) Urine Total Protein Digoxin Salicylates Acetaminophen 01/03/20 01/03/20 01/03/20 05:40 05:40 15:01 WBC RBC 3.45 L Hgb 8.3 L Hct 27.3 L MCV 79 L MCH 24 L MCHC 30 L RDW 19.3 H Plt Count Lymph % (Auto) Hood % (Auto) Eos % (Auto) Lymph # Hood # Eos # Seg Neutrophils % Monocytes % (Manual) Monocytes # (Manual) D-Dimer ABG pH ABG pO2 ABG HCO3 ABG O2 Saturation ABG Base Excess ABG Hemoglobin Oxyhemoglobin Sodium 151 H Potassium Chloride 111.8 H Carbon Dioxide 31 H BUN 37 H Creatinine 1.8 H Glucose 187 H POC Glucose 164 H Lactic Acid Calcium Magnesium AST ALT Lactate Dehydrogenase Total Creatine Kinase C-Reactive Protein Albumin Urine WBC (Auto) Urine Total Protein Digoxin Salicylates Acetaminophen 01/03/20 01/03/20 01/04/20 18:15 22:45 02:11 WBC RBC Hgb Hct MCV MCH MCHC RDW Plt Count Lymph % (Auto) Hood % (Auto) Eos % (Auto) Lymph # Hood # Eos # Seg Neutrophils % Monocytes % (Manual) Monocytes # (Manual) D-Dimer ABG pH ABG pO2 ABG HCO3 ABG O2 Saturation ABG Base Excess ABG Hemoglobin Oxyhemoglobin Sodium Potassium Chloride Carbon Dioxide BUN Creatinine Glucose POC Glucose 184 H 176 H 206 H Lactic Acid Calcium Magnesium AST ALT Lactate Dehydrogenase Total Creatine Kinase C-Reactive Protein Albumin Urine WBC (Auto) Urine Total Protein Digoxin Salicylates Acetaminophen 01/04/20 01/04/20 01/04/20 03:16 05:15 10:53 WBC RBC Hgb Hct MCV MCH MCHC RDW Plt Count Lymph % (Auto) Hood % (Auto) Eos % (Auto) Lymph # Hood # Eos # Seg Neutrophils % Monocytes % (Manual) Monocytes # (Manual) D-Dimer ABG pH 7.282 L ABG pO2 73.2 L ABG HCO3 ABG O2 Saturation 94.5 L ABG Base Excess -6.4 L ABG Hemoglobin 10.9 L Oxyhemoglobin 92.1 L Sodium Potassium Chloride Carbon Dioxide BUN Creatinine Glucose POC Glucose 139 H 224 H Lactic Acid Calcium Magnesium AST ALT Lactate Dehydrogenase Total Creatine Kinase C-Reactive Protein Albumin Urine WBC (Auto) Urine Total Protein Digoxin Salicylates Acetaminophen 01/04/20 01/04/20 01/04/20 15:47 18:05 22:07 WBC RBC Hgb Hct MCV MCH MCHC RDW Plt Count Lymph % (Auto) Hood % (Auto) Eos % (Auto) Lymph # Hood # Eos # Seg Neutrophils % Monocytes % (Manual) Monocytes # (Manual) D-Dimer ABG pH ABG pO2 ABG HCO3 ABG O2 Saturation ABG Base Excess ABG Hemoglobin Oxyhemoglobin Sodium Potassium Chloride Carbon Dioxide BUN Creatinine Glucose POC Glucose 135 H 117 H 108 H Lactic Acid Calcium Magnesium AST ALT Lactate Dehydrogenase Total Creatine Kinase C-Reactive Protein Albumin Urine WBC (Auto) Urine Total Protein Digoxin Salicylates Acetaminophen 01/04/20 01/04/20 01/05/20 Unknown Unknown 02:04 WBC RBC 3.46 L Hgb 8.2 L Hct 27.8 L MCV 80 L MCH 24 L MCHC 30 L RDW 19.7 H Plt Count Lymph % (Auto) Hood % (Auto) Eos % (Auto) Lymph # Hood # Eos # Seg Neutrophils % Monocytes % (Manual) Monocytes # (Manual) D-Dimer ABG pH ABG pO2 ABG HCO3 ABG O2 Saturation ABG Base Excess ABG Hemoglobin Oxyhemoglobin Sodium 150 H Potassium Chloride 110 H Carbon Dioxide 32 H BUN 32 H Creatinine Glucose 309 H POC Glucose 140 H Lactic Acid Calcium Magnesium AST ALT Lactate Dehydrogenase Total Creatine Kinase C-Reactive Protein Albumin Urine WBC (Auto) Urine Total Protein Digoxin Salicylates Acetaminophen 01/05/20 01/05/20 01/05/20 03:31 03:36 03:36 WBC RBC 3.46 L Hgb 8.4 L Hct 26.9 L MCV 78 L MCH 24 L MCHC 31 L RDW 19.0 H Plt Count Lymph % (Auto) Hood % (Auto) Eos % (Auto) Lymph # Hood # Eos # Seg Neutrophils % Monocytes % (Manual) Monocytes # (Manual) D-Dimer ABG pH 7.454 H ABG pO2 113.0 H ABG HCO3 30.5 H ABG O2 Saturation ABG Base Excess 6.0 H ABG Hemoglobin 8.5 L Oxyhemoglobin Sodium 150 H Potassium Chloride 110.3 H Carbon Dioxide BUN 30 H Creatinine Glucose 148 H POC Glucose Lactic Acid Calcium Magnesium AST ALT Lactate Dehydrogenase Total Creatine Kinase C-Reactive Protein Albumin Urine WBC (Auto) Urine Total Protein Digoxin Salicylates Acetaminophen 01/05/20 01/05/20 01/05/20 05:21 09:56 11:45 WBC RBC Hgb Hct MCV MCH MCHC RDW Plt Count Lymph % (Auto) Hood % (Auto) Eos % (Auto) Lymph # Hood # Eos # Seg Neutrophils % Monocytes % (Manual) Monocytes # (Manual) D-Dimer ABG pH ABG pO2 ABG HCO3 ABG O2 Saturation ABG Base Excess ABG Hemoglobin Oxyhemoglobin Sodium Potassium Chloride Carbon Dioxide BUN Creatinine Glucose POC Glucose 142 H 129 H 174 H Lactic Acid Calcium Magnesium AST ALT Lactate Dehydrogenase Total Creatine Kinase C-Reactive Protein Albumin Urine WBC (Auto) Urine Total Protein Digoxin Salicylates Acetaminophen 01/05/20 01/05/20 01/05/20 13:30 14:00 17:41 WBC RBC Hgb Hct MCV MCH MCHC RDW Plt Count Lymph % (Auto) Hood % (Auto) Eos % (Auto) Lymph # Hood # Eos # Seg Neutrophils % Monocytes % (Manual) Monocytes # (Manual) D-Dimer ABG pH ABG pO2 ABG HCO3 ABG O2 Saturation ABG Base Excess ABG Hemoglobin Oxyhemoglobin Sodium Potassium Chloride Carbon Dioxide BUN 26 H Creatinine 1.6 H Glucose 302 H POC Glucose 168 H 136 H Lactic Acid Calcium Magnesium AST ALT Lactate Dehydrogenase Total Creatine Kinase C-Reactive Protein Albumin Urine WBC (Auto) Urine Total Protein Digoxin Salicylates Acetaminophen 01/05/20 01/05/20 01/06/20 20:38 23:32 03:50 WBC RBC Hgb Hct MCV MCH MCHC RDW Plt Count Lymph % (Auto) Hood % (Auto) Eos % (Auto) Lymph # Hood # Eos # Seg Neutrophils % Monocytes % (Manual) Monocytes # (Manual) D-Dimer ABG pH ABG pO2 76.2 L ABG HCO3 30.1 H ABG O2 Saturation ABG Base Excess 5.1 H ABG Hemoglobin 9.5 L Oxyhemoglobin 93.8 L Sodium Potassium Chloride Carbon Dioxide BUN Creatinine Glucose POC Glucose 124 H 163 H Lactic Acid Calcium Magnesium AST ALT Lactate Dehydrogenase Total Creatine Kinase C-Reactive Protein Albumin Urine WBC (Auto) Urine Total Protein Digoxin Salicylates Acetaminophen 01/06/20 01/06/20 01/06/20 04:09 04:58 04:58 WBC RBC Hgb 8.8 L Hct 28.7 L MCV 78 L MCH 24 L MCHC 31 L RDW 18.7 H Plt Count 522 H Lymph % (Auto) Hood % (Auto) Eos % (Auto) Lymph # Hood # Eos # Seg Neutrophils % Monocytes % (Manual) Monocytes # (Manual) D-Dimer ABG pH ABG pO2 ABG HCO3 ABG O2 Saturation ABG Base Excess ABG Hemoglobin Oxyhemoglobin Sodium 150 H D Potassium Chloride 109.3 H Carbon Dioxide BUN 25 H Creatinine Glucose 55 L POC Glucose 65 L Lactic Acid Calcium Magnesium AST ALT Lactate Dehydrogenase Total Creatine Kinase C-Reactive Protein Albumin Urine WBC (Auto) Urine Total Protein Digoxin Salicylates Acetaminophen 01/06/20 01/06/20 01/06/20 05:01 14:10 17:49 WBC RBC Hgb Hct MCV MCH MCHC RDW Plt Count Lymph % (Auto) Hood % (Auto) Eos % (Auto) Lymph # Hood # Eos # Seg Neutrophils % Monocytes % (Manual) Monocytes # (Manual) D-Dimer ABG pH ABG pO2 ABG HCO3 ABG O2 Saturation ABG Base Excess ABG Hemoglobin Oxyhemoglobin Sodium Potassium Chloride Carbon Dioxide BUN Creatinine Glucose POC Glucose 60 L 119 H 131 H Lactic Acid Calcium Magnesium AST ALT Lactate Dehydrogenase Total Creatine Kinase C-Reactive Protein Albumin Urine WBC (Auto) Urine Total Protein Digoxin Salicylates Acetaminophen 01/06/20 01/07/20 01/07/20 21:08 02:11 05:19 WBC RBC Hgb Hct MCV MCH MCHC RDW Plt Count Lymph % (Auto) Hood % (Auto) Eos % (Auto) Lymph # Hood # Eos # Seg Neutrophils % Monocytes % (Manual) Monocytes # (Manual) D-Dimer ABG pH ABG pO2 ABG HCO3 ABG O2 Saturation ABG Base Excess ABG Hemoglobin Oxyhemoglobin Sodium Potassium Chloride Carbon Dioxide BUN Creatinine Glucose POC Glucose 136 H 209 H 182 H Lactic Acid Calcium Magnesium AST ALT Lactate Dehydrogenase Total Creatine Kinase C-Reactive Protein Albumin Urine WBC (Auto) Urine Total Protein Digoxin Salicylates Acetaminophen 01/07/20 01/07/20 01/07/20 11:40 11:52 13:49 WBC RBC Hgb Hct MCV MCH MCHC RDW Plt Count Lymph % (Auto) Hood % (Auto) Eos % (Auto) Lymph # Hood # Eos # Seg Neutrophils % Monocytes % (Manual) Monocytes # (Manual) D-Dimer ABG pH ABG pO2 ABG HCO3 ABG O2 Saturation ABG Base Excess ABG Hemoglobin Oxyhemoglobin Sodium Potassium Chloride Carbon Dioxide BUN 21 H Creatinine Glucose 190 H POC Glucose 180 H 184 H Lactic Acid Calcium Magnesium AST ALT Lactate Dehydrogenase Total Creatine Kinase C-Reactive Protein Albumin Urine WBC (Auto) Urine Total Protein Digoxin Salicylates Acetaminophen 01/07/20 01/07/20 01/07/20 17:54 22:19 Unknown WBC RBC Hgb Hct MCV MCH MCHC RDW Plt Count Lymph % (Auto) Hood % (Auto) Eos % (Auto) Lymph # Hood # Eos # Seg Neutrophils % Monocytes % (Manual) Monocytes # (Manual) D-Dimer ABG pH ABG pO2 ABG HCO3 28.9 H ABG O2 Saturation ABG Base Excess 4.0 H ABG Hemoglobin 11.0 L Oxyhemoglobin 94.2 L Sodium Potassium Chloride Carbon Dioxide BUN Creatinine Glucose POC Glucose 190 H 299 H Lactic Acid Calcium Magnesium AST ALT Lactate Dehydrogenase Total Creatine Kinase C-Reactive Protein Albumin Urine WBC (Auto) Urine Total Protein Digoxin Salicylates Acetaminophen 01/08/20 01/08/20 01/08/20 02:45 05:26 05:27 WBC RBC Hgb Hct MCV MCH MCHC RDW Plt Count Lymph % (Auto) Hood % (Auto) Eos % (Auto) Lymph # Hood # Eos # Seg Neutrophils % Monocytes % (Manual) Monocytes # (Manual) D-Dimer ABG pH ABG pO2 67.8 L ABG HCO3 26.5 H ABG O2 Saturation 93.2 L ABG Base Excess ABG Hemoglobin 8.1 L Oxyhemoglobin 90.4 L Sodium Potassium Chloride Carbon Dioxide BUN Creatinine Glucose POC Glucose 245 H 346 H Lactic Acid Calcium Magnesium AST ALT Lactate Dehydrogenase Total Creatine Kinase C-Reactive Protein Albumin Urine WBC (Auto) Urine Total Protein Digoxin Salicylates Acetaminophen 01/08/20 01/08/20 01/08/20 08:03 08:03 10:33 WBC RBC 3.14 L Hgb 7.6 L Hct 24.3 L MCV 77 L MCH 24 L MCHC 31 L RDW 18.3 H Plt Count 509 H Lymph % (Auto) Hood % (Auto) Eos % (Auto) Lymph # Hood # Eos # Seg Neutrophils % Monocytes % (Manual) Monocytes # (Manual) D-Dimer ABG pH ABG pO2 ABG HCO3 ABG O2 Saturation ABG Base Excess ABG Hemoglobin Oxyhemoglobin Sodium 132 L D Potassium Chloride 94.7 L Carbon Dioxide BUN 22 H Creatinine Glucose 284 H POC Glucose 275 H Lactic Acid Calcium Magnesium AST ALT Lactate Dehydrogenase Total Creatine Kinase C-Reactive Protein Albumin Urine WBC (Auto) Urine Total Protein Digoxin Salicylates Acetaminophen 01/08/20 01/08/20 01/08/20 13:34 17:24 21:49 WBC RBC Hgb Hct MCV MCH MCHC RDW Plt Count Lymph % (Auto) Hood % (Auto) Eos % (Auto) Lymph # Hood # Eos # Seg Neutrophils % Monocytes % (Manual) Monocytes # (Manual) D-Dimer ABG pH ABG pO2 ABG HCO3 ABG O2 Saturation ABG Base Excess ABG Hemoglobin Oxyhemoglobin Sodium Potassium Chloride Carbon Dioxide BUN Creatinine Glucose POC Glucose 273 H 294 H 265 H Lactic Acid Calcium Magnesium AST ALT Lactate Dehydrogenase Total Creatine Kinase C-Reactive Protein Albumin Urine WBC (Auto) Urine Total Protein Digoxin Salicylates Acetaminophen 01/09/20 01/09/20 01/09/20 00:13 03:45 05:55 WBC RBC Hgb Hct MCV MCH MCHC RDW Plt Count Lymph % (Auto) Hood % (Auto) Eos % (Auto) Lymph # Hood # Eos # Seg Neutrophils % Monocytes % (Manual) Monocytes # (Manual) D-Dimer ABG pH ABG pO2 ABG HCO3 ABG O2 Saturation ABG Base Excess ABG Hemoglobin Oxyhemoglobin Sodium Potassium Chloride Carbon Dioxide BUN Creatinine Glucose POC Glucose 251 H 346 H 300 H Lactic Acid Calcium Magnesium AST ALT Lactate Dehydrogenase Total Creatine Kinase C-Reactive Protein Albumin Urine WBC (Auto) Urine Total Protein Digoxin Salicylates Acetaminophen 01/09/20 01/09/20 01/09/20 08:15 09:31 12:04 WBC RBC Hgb Hct MCV MCH MCHC RDW Plt Count Lymph % (Auto) Hood % (Auto) Eos % (Auto) Lymph # Hood # Eos # Seg Neutrophils % Monocytes % (Manual) Monocytes # (Manual) D-Dimer ABG pH ABG pO2 ABG HCO3 ABG O2 Saturation ABG Base Excess ABG Hemoglobin Oxyhemoglobin Sodium 134 L Potassium Chloride 97.6 L Carbon Dioxide BUN 25 H Creatinine Glucose 240 H POC Glucose 191 H 230 H Lactic Acid Calcium Magnesium AST ALT Lactate Dehydrogenase Total Creatine Kinase C-Reactive Protein Albumin Urine WBC (Auto) Urine Total Protein Digoxin Salicylates Acetaminophen 01/09/20 01/09/20 01/09/20 13:46 17:31 22:28 WBC RBC Hgb Hct MCV MCH MCHC RDW Plt Count Lymph % (Auto) Hood % (Auto) Eos % (Auto) Lymph # Hood # Eos # Seg Neutrophils % Monocytes % (Manual) Monocytes # (Manual) D-Dimer ABG pH ABG pO2 ABG HCO3 ABG O2 Saturation ABG Base Excess ABG Hemoglobin Oxyhemoglobin Sodium Potassium Chloride Carbon Dioxide BUN Creatinine Glucose POC Glucose 211 H 260 H 223 H Lactic Acid Calcium Magnesium AST ALT Lactate Dehydrogenase Total Creatine Kinase C-Reactive Protein Albumin Urine WBC (Auto) Urine Total Protein Digoxin Salicylates Acetaminophen 01/10/20 01/10/20 01/10/20 02:16 04:20 05:55 WBC RBC Hgb Hct MCV MCH MCHC RDW Plt Count Lymph % (Auto) Hood % (Auto) Eos % (Auto) Lymph # Hood # Eos # Seg Neutrophils % Monocytes % (Manual) Monocytes # (Manual) D-Dimer ABG pH ABG pO2 95.3 H ABG HCO3 27.8 H ABG O2 Saturation ABG Base Excess ABG Hemoglobin 8.3 L Oxyhemoglobin Sodium Potassium Chloride Carbon Dioxide BUN Creatinine Glucose POC Glucose 219 H 245 H Lactic Acid Calcium Magnesium AST ALT Lactate Dehydrogenase Total Creatine Kinase C-Reactive Protein Albumin Urine WBC (Auto) Urine Total Protein Digoxin Salicylates Acetaminophen 01/10/20 10:38 WBC RBC Hgb Hct MCV MCH MCHC RDW Plt Count Lymph % (Auto) Hood % (Auto) Eos % (Auto) Lymph # Hood # Eos # Seg Neutrophils % Monocytes % (Manual) Monocytes # (Manual) D-Dimer ABG pH ABG pO2 ABG HCO3 ABG O2 Saturation ABG Base Excess ABG Hemoglobin Oxyhemoglobin Sodium Potassium Chloride Carbon Dioxide BUN Creatinine Glucose POC Glucose 268 H Lactic Acid Calcium Magnesium AST ALT Lactate Dehydrogenase Total Creatine Kinase C-Reactive Protein Albumin Urine WBC (Auto) Urine Total Protein Digoxin Salicylates Acetaminophen Chest x-ray: image reviewed (persistent bilateral infiltrates abnd basilar atelectasis) Allied health notes reviewed: nursing
[2020-01-10] MEDS: INSULIN GLARGINE 100 UNITS/ML SUB-Q SCH ×2 (14:57→22:19)
--- NOTE | 2020-01-10 19:23 | Progress Note ---
Assessment and Plan Assessment and plan: 59-year-old male past medical history diastolic CHF, OHS, HTN, DM 2, hypothyroidism admitted with confusion after being found by a neighbor. On arrival patient was found to be lethargic, and in respiratory distress and hypoxic. Patient was intubated in the ER because of hypoxic respiratory failure. Also noted to be hypotensive, placed on pressor admitted to ICU. Patient is negative for COVID-19, being treated for bilateral pneumonia. JAGDEEP improved with IV fluid, ID and critical care following. Chest x-ray: Left lower lobe airspace disease CT chest: 1. Patchy bilateral nodular and consolidative airspace opacities which are nonspecific but likely related to the reported history of Covid. 2. Multiple enlarged partially visualized left supraclavicular and lower cervical chain lymph nodes. While these are nonspecific and may be reactive, a neoplastic process is possible, recommend short interval follow-up after patient recovers from the acute episode. /Septic Shock /Sinus bradycardia /HypERnatremia / Acute hypoxic respiratory failure Likely from bilateral pneumonia and diastolic heart failure Patient intubated, placed on ventilatory support. critical care team consulted in ED. Patient is extubated, continue nebulizer breathing treatment and as needed biPAP We will also do a swallow eval / Sepsis with shock cont IV antibiotic therapy, IV fluid resuscitation therapy, monitor urine output every shift, maintain mean arterial blood pressure greater than or equal to 65, s/p IV pressor support. / Suspected 2019-nCoV infection -ruled out with 2 negative test / Diastolic CHF Preserved EF based on prior echocardiogram Monitor weight strict I's/O, daily weight, monitor urine output every shift, submental oxygen, blood pressure control. /JAGDEEP, due to vasomotor nephropathy, present on admission -Creatinine improving, -Likely due to severe sepsis and hypotension /hypernatremia, -due to dehydration and sepsis -change fluid to D5W - monitor BMP /Hypokalemia, replete / Diabetes type II Initiate tube feeding diet Sliding scale insulin, Accu-Chek, hypoglycemia protocol. / Hypothyroidism Synthroid therapy, supportive care. / Bilateral pneumonia Pneumonia protocol: IV antibiotic therapy with rocephin for total 7 days, pulse oximetry, /Cervical lymphadenopathy -Reactive versus infectious process versus malignancy -Need repeat scanning and further staging when medically more stable -Pulmonology and ID following /Ileus: Hold tube feeds / HTN (hypertension) -hold BP meds as patient is hypotensive Monitor blood pressure every shift, continue medical management. /History of obstructive sleep apnea -Patient currently on mechanical ventilation /Acute metabolic encephalopathy Secondary to hyponatremia. /Urinary retention, suspected in the ER -Patient having good urine output now, will hold any CT scan -Continue IV fluid / DVT prophylaxis SCD to bilateral lower extremities while in bed, prophylactic heparin 12/19/19: Negative for COVID-19, continue pressor and wean off as tolerated, continue IV antibiotic and follow cultures. 12/19: Weaned off from pressor, sodium 156>157>153 today, creatinine 1.4>1.2>1.0. Continue IV fluid. Wean off from vent as tolerated. Follow ID recommendation 12/20: Extubated today, continue to monitor in the ICU overnight if clinically stable with transfer out to [facility]/telemetry tomorrow a.m.. Sodium 149 today, continue IV fluid and monitor BMP. Swallow eval, PT OT eval. 2nd text for covid is negative 12/21: transfer to [facility], start on gentle hydration. mechanical soft diet 12/22: placed back on bipap, Na 163 - start on D5W, monitor bmp 12/23: spoke to sister, updated [id number], also discussed Pulmonary, will likely need LTAC. Obtain Nephrology due to persistent Hypernatremia. Will start on free water and continue to monitor. Remains of restriants for safety due to intermittent confusion. 12/24: Still with intermittent encephalopathy. Requiring restraints. Hypernatremia still persist continue hypotonic solution. Nephrology consulted. Free water started this morning will increase dose. Replace potassium as hypokalemia still persist 12/26/19: Clinically improving, BIPAP now PRN AND HS, Na improving, continue renal follow up. I have called [facility] in case they would like to transfer the patient tested previously requested. 12/26: Hypernatermia still persist, had pulled out NGT yesterday, Continue free water, Continue Bipap, Mcdermott states he is not yet stable for transfer. Although from our critical care team this patient has been cleared for to be able to transfer. 12/27: Patient reintubated due to hypoxia. Continue current management as outlined by telecasting engineer. Sodium is improving. Continue current management monitor ABG and intermittent chest x-ray. [facility]der[facility] group updated. Patient sister also updated. 12/28: Sepsis persist. Antibiotics adjusted.-start linezolid 600 mg IV q 12 hour. Will adjust insulin for better management of blood glucose. 12/29: Shock still persist Levophed adjusted upward. Mcdermott advised patient not safe for travel at this time. Continue ventilatory support continue full [place] pport antibiotics adjusted by ID. Follow cultures 12/30: Still on the vent and pressors , Isolation secondary MRSA In sputum. 12/31: Continue current management, will need intermittent chest xray, adjust insulin For better blood glucose control. Check labs in am 01/01: KUB reviewed shows distended bowel with no no specific obstruction noted. We will hold tube feeds at this time place NG tube to low intermittent suction. Repeat chest x-ray in a.m. Hyponatremia is better kidney function appears to be improving continue to monitor. 01/02: Continue feeding tube to low intermittent suction over 500 residual came out in the last 16+ hours. Repeat blood culture per ID. Continue antibiotics. We will obtain the CT abdomen and pelvis without contrast as renal function is mildly increased today. Prognosis is guarded repeat imaging concerning for colon distention. Will defer to critical care if the fecal management system should be placed. 01/03: CT A/P and chest. IMPRESSION: 1. Predominantly dependent bilateral consolidative and groundglass changes throughout both lungs have worsened since the prior. There is a new small left pleural effusion as well. These findings could be seen in the setting of pulmonary edema with associated superimposed infectious process. There is no cardiomegaly. 2. Left cervical/supraclavicular adenopathy appears slightly increased. This is nonspecific. However, there are shoddy nodes throughout the retroperitoneum and within the pelvis, and the spleen is mildly enlarged. Taken together, these findings are concerning for lymphoproliferative process such as lymphoma. - Ultrasound guided Biopsy, also send peripheral smear. US guided biopsy ordered - add a second pressors 01/04: Awaiting biopsy, continue supportive care, Sodium stable and improving. Patient undergoing bronchoscopy today. 01/05: Continue supportive care, monitor sodium level, wean pressors as tolerated, Radiology unable to perform biopsy of Lymphnode while patient is on the vent per Radiology team. Baldemar updated of clinical status 01/06: Remains on pressors. Continues with nonoliguric kidney injury. We will give a bolus of fluid as patient is still dry. Hypoglycemia is improving will decrease to D5 from D10 at the same rate. Continue to monitor await cultures and cytology from bronchoscopy. Likely will need trach and PEG. 01/07: Discontinue D5. Patient did receive a bolus of fluid yesterday. Bowel movement noted. Monitor blood sugar close, continue to wean pressors, folllow result from bronchoscopy. start considering Trach and PEG 01/08: Noted hypotensive again this morning requiring reinitiation of pressors. Also was bradycardic received atropine. Keep atropine at bedside cardiology darrell kang continue pulmonary supportive care while on ventilator. Renal function is improving. Will give additional bolus of fluid. 01/09: Consult placed to surgery for trach and PEG as patient has failed multiple weaning trials.. Still awaiting biopsy for the adenopathy noted. Again radiology would want the patient off the vent prior to doing biopsy. The high probability of a clinically significant, sudden or life threatening deterioration of the [renal, pul patient still with intermittent bradycardia will check labs monary] system(s) required my full and direct attention, intervention and personal management. The aggregate critical care time was [35] minutes. This time is in addition to time spent performing reported procedures but includes the following: [x] Data Review and interpretation [x] Patient assessment and monitoring of vital signs [x] Documentation [x] Medication orders and management History Interval history: Patient seen and examined, still on full ventilatory support, discussion for trach and PEG at this time. Hospitalist Physical - Physical exam Narrative exam: GENERAL: Still on full ventilatory support. well-developed obese more awake today.. ETT HEENT: Normocephalic. Atraumatic. No conjunctival congestion or icterus. Patient has moist mucous membranes. ETT NECK: Supple. Trachea midline. CHEST/LUNGS: Coarse breath sound auscultated bilaterally, HEART/CARDIOVASCULAR: bradycardia ABDOMEN: Abdomen is soft, distended but nontender. Patient has normal bowel sounds. SKIN: Warm and dry. NEURO: Follows some command, AMS, no focal deficits MUSCULOSKELETAL: No joint effusion or tenderness. EXTRIMITY: No edema, no cyanosis or clubbing. PSYCH: Calm - Constitutional Vitals: Temp Pulse Resp BP Pulse Ox 97.6 F 41 L 13 99/51 98 01/10/20 16:00 01/10/20 18:00 01/10/20 18:00 01/10/20 18:00 01/10/20 18:00 General appearance: Present: severe distress HEART Score - HEART Score Troponin: Troponin T 0.011 ng/mL (0.00-0.029) 12/18/19 14:45 Results - Labs CBC & Chem 7: 01/08/20 08:03 01/09/20 08:15 Labs: Laboratory Last Values WBC 7.2 K/mm3 (4.5-11.0) 01/08/20 08:03 RBC 3.14 M/mm3 (3.65-5.03) L 01/08/20 08:03 Hgb 7.6 gm/dl (11.8-15.2) L 01/08/20 08:03 Hct 24.3 % (35.5-45.6) L 01/08/20 08:03 MCV 77 fl (84-94) L 01/08/20 08:03 MCH 24 pg (28-32) L 01/08/20 08:03 MCHC 31 % (32-34) L 01/08/20 08:03 RDW 18.3 % (13.2-15.2) H 01/08/20 08:03 Plt Count 509 K/mm3 (140-440) H 01/08/20 08:03 Lymph % (Auto) 19.9 % (13.4-35.0) 01/02/20 05:00 [place] % (Auto) 9.4 % (0.0-7.3) H 01/02/20 05:00 Eos % (Auto) 11.2 % (0.0-4.3) H 01/02/20 05:00 Baso % (Auto) 0.8 % (0.0-1.8) 01/02/20 05:00 Lymph # 1.4 K/mm3 (1.2-5.4) 01/02/20 05:00 [place] # 0.7 K/mm3 (0.0-0.8) 01/02/20 05:00 Eos # 0.8 K/mm3 (0.0-0.4) H 01/02/20 05:00 Baso # 0.1 K/mm3 (0.0-0.1) 01/02/20 05:00 Add Manual Diff Complete 12/24/19 04:53 Total Counted 100 12/24/19 04:53 Seg Neutrophils % 58.7 % (40.0-70.0) 01/02/20 05:00 Seg Neuts % (Manual) 60.0 % (40.0-70.0) 12/24/19 04:53 Band Neutrophils % 0 % 12/24/19 04:53 Lymphocytes % (Manual) 20.0 % (13.4-35.0) 12/24/19 04:53 Reactive Lymphs % (Man) 0 % 12/24/19 04:53 Monocytes % (Manual) 15.0 % (0.0-7.3) H 12/24/19 04:53 Eosinophils % (Manual) 4.0 % (0.0-4.3) 12/24/19 04:53 Basophils % (Manual) 0 % (0.0-1.8) 12/24/19 04:53 Metamyelocytes % 1.0 % 12/24/19 04:53 Myelocytes % 0 % 12/24/19 04:53 Promyelocytes % 0 % 12/24/19 04:53 Blast Cells % 0 % 12/24/19 04:53 Nucleated RBC % Not Reportable 12/24/19 04:53 Seg Neutrophils # 4.0 K/mm3 (1.8-7.7) 01/02/20 05:00 Seg Neutrophils # Man 3.5 K/mm3 (1.8-7.7) 12/24/19 04:53 Band Neutrophils # 0.0 K/mm3 12/24/19 04:53 Lymphocytes # (Manual) 1.2 K/mm3 (1.2-5.4) 12/24/19 04:53 Abs React Lymphs (Man) 0.0 K/mm3 12/24/19 04:53 Monocytes # (Manual) 0.9 K/mm3 (0.0-0.8) H 12/24/19 04:53 Eosinophils # (Manual) 0.2 K/mm3 (0.0-0.4) 12/24/19 04:53 Basophils # (Manual) 0.0 K/mm3 (0.0-0.1) 12/24/19 04:53 Metamyelocytes # 0.1 K/mm3 12/24/19 04:53 Myelocytes # 0.0 K/mm3 12/24/19 04:53 Promyelocytes # 0.0 K/mm3 12/24/19 04:53 Blast Cells # 0.0 K/mm3 12/24/19 04:53 WBC Morphology Not Reportable 12/24/19 04:53 Hypersegmented Neuts Not Reportable 12/24/19 04:53 Hyposegmented Neuts Not Reportable 12/24/19 04:53 Hypogranular Neuts Not Reportable 12/24/19 04:53 Smudge Cells Not Reportable 12/24/19 04:53 Toxic Granulation Not Reportable 12/24/19 04:53 Toxic Vacuolation Not Reportable 12/24/19 04:53 Dohle Bodies Not Reportable 12/24/19 04:53 Pelger-Huet Anomaly Not Reportable 12/24/19 04:53 Mervin Rods Not Reportable 12/24/19 04:53 Platelet Estimate Consistent w auto 12/24/19 04:53 Clumped Platelets Not Reportable 12/24/19 04:53 Plt Clumps, EDTA Not Reportable 12/24/19 04:53 Large Platelets Not Reportable 12/24/19 04:53 Giant Platelets Not Reportable 12/24/19 04:53 Platelet Satelliting Not Reportable 12/24/19 04:53 Plt Morphology Comment Not Reportable 12/24/19 04:53 RBC Morphology Not Reportable 12/24/19 04:53 Dimorphic RBCs Not Reportable 12/24/19 04:53 Polychromasia Rare 12/24/19 04:53 Hypochromasia 1+ 12/24/19 04:53 Poikilocytosis Not Reportable 12/24/19 04:53 Anisocytosis 1+ 12/24/19 04:53 Microcytosis Few 12/24/19 04:53 Macrocytosis Not Reportable 12/24/19 04:53 Spherocytes Not Reportable 12/24/19 04:53 Pappenheimer Bodies Not Reportable 12/24/19 04:53 Sickle Cells Not Reportable 12/24/19 04:53 Target Cells Not Reportable 12/24/19 04:53 Tear Drop Cells Not Reportable 12/24/19 04:53 Ovalocytes Few 12/24/19 04:53 Helmet Cells Not Reportable 12/24/19 04:53 Brink-[place] Bodies Not Reportable 12/24/19 04:53 [place] Rings Not Reportable 12/24/19 04:53 [place] Cells Not Reportable 12/24/19 04:53 Bite Cells Not Reportable 12/24/19 04:53 Crenated Cell Not Reportable 12/24/19 04:53 Elliptocytes Not Reportable 12/24/19 04:53 Acanthocytes (Spur) Not Reportable 12/24/19 04:53 Rouleaux Not Reportable 12/24/19 04:53 Hemoglobin C Crystals Not Reportable 12/24/19 04:53 Schistocytes Not Reportable 12/24/19 04:53 Malaria parasites Not Reportable 12/24/19 04:53 Gianni Bodies Not Reportable 12/24/19 04:53 Hem Pathologist Commnt No 12/24/19 04:53 PT 14.0 Sec. (12.2-14.9) 12/18/19 14:45 INR 1.10 (0.87-1.13) 12/18/19 14:45 APTT 29.4 Sec. (24.2-36.6) 12/18/19 14:45 D-Dimer 534.45 ng/mlDDU (0-234) H 12/18/19 14:45 ABG pH 7.407 pH Units (7.350-7.450) 01/10/20 04:20 ABG pCO2 45.1 mm Hg 01/10/20 04:20 ABG pO2 95.3 mm Hg (80.0-90.0) H 01/10/20 04:20 ABG HCO3 27.8 mmol/L (20.0-26.0) H 01/10/20 04:20 ABG O2 Saturation 97.7 % (95.0-99.0) 01/10/20 04:20 ABG O2 Content 20.6 (0.0-44) 01/10/20 04:20 ABG Base Excess 2.5 mmol/L (-2.0-3.0) 01/10/20 04:20 ABG Hemoglobin 8.3 gm/dl (14.0-18.0) L 01/10/20 04:20 ABG Carboxyhemoglobin 1.6 % (0.0-5.0) 01/10/20 04:20 ABG Methemoglobin 0.5 % (0.0-1.5) 01/10/20 04:20 Oxyhemoglobin 95.6 % (95.0-99.0) 01/10/20 04:20 FiO2 50 % 01/10/20 04:20 Sodium 134 mmol/L (137-145) L 01/09/20 08:15 Potassium 4.8 mmol/L (3.6-5.0) 01/09/20 08:15 Chloride 97.6 mmol/L (98-107) L 01/09/20 08:15 Carbon Dioxide 25 mmol/L (22-30) 01/09/20 08:15 Anion Gap 16 mmol/L 01/09/20 08:15 BUN 25 mg/dL (9-20) H 01/09/20 08:15 Creatinine 1.1 mg/dL (0.8-1.5) 01/09/20 08:15 Estimated GFR > 60 ml/min 01/09/20 08:15 BUN/Creatinine Ratio 23 % 01/09/20 08:15 Glucose 240 mg/dL (75-100) H 01/09/20 08:15 POC Glucose 238 (70-105) H 01/10/20 15:45 Lactic Acid 1.70 mmol/L (0.7-2.0) 12/30/19 05:06 Calcium 8.9 mg/dL (8.4-10.2) 01/09/20 08:15 Phosphorus 3.70 mg/dL (2.5-4.5) 12/27/19 03:48 Magnesium 2.60 mg/dL (1.7-2.3) H 12/30/19 05:06 Ferritin 83.4 ng/mL (13.0-400.0) 12/18/19 14:45 Total Bilirubin 0.30 mg/dL (0.1-1.2) 12/19/19 04:13 AST 85 units/L (5-40) H 12/19/19 04:13 ALT 61 units/L (7-56) H 12/19/19 04:13 Alkaline Phosphatase 80 units/L (35-129) 12/19/19 04:13 Ammonia 39.0 umol/L (25-60) 12/18/19 14:45 Lactate Dehydrogenase 235 units/L (91-180) H 12/18/19 14:45 Lactate Dehydrogenase 236 units/L (91-180) H 12/18/19 14:45 Total Creatine Kinase 40 units/L (55-170) L 12/18/19 14:45 Troponin T 0.011 ng/mL (0.00-0.029) 12/18/19 14:45 C-Reactive Protein 8.40 mg/dL (0.00-1.30) H 12/18/19 14:45 C-Reactive Protein 8.50 mg/dL (0.00-1.30) H 12/18/19 14:45 Total Protein 6.8 g/dL (6.3-8.2) 12/19/19 04:13 Albumin 3.0 g/dL (3.9-5) L 12/19/19 04:13 Albumin/Globulin Ratio 0.8 % 12/19/19 04:13 Procalcitonin 0.22 ng/mL (<0.15) 12/18/19 14:45 TSH 2.300 mlU/mL (0.270-4.200) 12/18/19 14:45 Urine Color Yellow (Yellow) 12/19/19 16:50 Urine Turbidity Clear (Clear) 12/19/19 16:50 Urine pH 5.0 (5.0-7.0) 12/19/19 16:50 Ur Specific [place] 1.010 (1.003-1.030) 12/19/19 16:50 Urine Protein <15 mg/dl mg/dL (Negative) 12/19/19 16:50 Urine Glucose (UA) 150 mg/dL (Negative) 12/19/19 16:50 Urine Ketones Neg mg/dL (Negative) 12/19/19 16:50 Urine Blood Neg (Negative) 12/19/19 16:50 Urine Nitrite Neg (Negative) 12/19/19 16:50 Urine Bilirubin Neg (Negative) 12/19/19 16:50 Urine Urobilinogen < 2.0 mg/dL (<2.0) 12/19/19 16:50 Ur Leukocyte Esterase Tr (Negative) 12/19/19 16:50 Urine WBC (Auto) 7.0 /HPF (0.0-6.0) H 12/19/19 16:50 Urine RBC (Auto) 4.0 /HPF (0.0-6.0) 12/19/19 16:50 U Epithel Cells (Auto) 1.0 /HPF (0-13.0) 12/19/19 16:50 Urine Bacteria (Auto) 1+ /HPF (Negative) 12/19/19 16:50 Urine Mucus Few /HPF 12/19/19 16:50 Urine Osmolality 140 Mosm/kg 12/25/19 16:45 Urine Creatinine < 4.2 mg/dL (0.1-20.0) 12/25/19 16:45 Urine Sodium 10 mmol/L 12/25/19 16:45 Urine Total Protein < 4 mg/dL (5-11.8) L 12/25/19 16:45 Digoxin 0.3 ng/mL (0.9-2.0) L 12/18/19 14:45 Salicylates < 0.3 mg/dL (2.8-20.0) L 12/18/19 14:45 Acetaminophen < 5.0 ug/mL (10.0-30.0) L 12/18/19 14:45 Plasma/Serum Alcohol < 0.01 % (0-0.07) 12/18/19 14:45 Coronavirus (PCR) Negative (Negative) 12/21/19 14:45 AFB Identification 01/05/20 09:05 Fungal Id Prelim 01/05/20 09:05 Blood Type A POSITIVE 12/18/19 14:45 Antibody Screen Negative 12/18/19 14:45 - Diagnostic Impressions Diagnostic Impressions: Echocardiogram 12/28/19 14:07 Transthoracic Echocardiogram Indication: SOB BP: 95/51 HR: 99 Conclusions *The left ventricular chamber size is mildly dilated. *There is no left ventricular hypertrophy. *Global left ventricular systolic function is mildly decreased. *The estimated ejection fraction is 45-50%. *Abnormal left ventricular diastolic filling is observed, consistent with impaired relaxation. *The right ventricular global systolic function is mildly reduced. *The right ventricular systolic pressure is calculated at 53 mmHg. Findings Left Ventricle: The left ventricular chamber size is mildly dilated. There is no left ventricular hypertrophy. Global left ventricular systolic function is mildly decreased. The estimated ejection fraction is 45-50%. Abnormal left ventricular diastolic filling is observed, consistent with impaired relaxation. Left Atrium: The left atrial chamber size is normal. Right Ventricle: The right ventricular cavity size is normal. The right ventricular global systolic function is mildly reduced. Right Atrium: The right atrial cavity size is normal. Aortic Valve: The aortic valve leaflets are mildly thickened. There is no evidence of aortic regurgitation. Mitral Valve: The mitral valve leaflets are mildly thickened. There is no evidence of mitral regurgitation. Tricuspid Valve: The tricuspid valve leaflets are normal. There is mild tricuspid regurgitation. The right ventricular systolic pressure is calculated at 53 mmHg. Pulmonic Valve: The pulmonic valve appears normal. There is trace pulmonic regurgitation. Pericardium: There is no pericardial effusion. Aorta: The aorta appears normal. Venous: The inferior vena cava is dilated. Measurements Chambers 2D Name Value Normal Range IVSd (2D) 1.08 cm (0.6 - 1.1) LVPWd (2D) 1 cm (0.6 - 1.1) LVIDd (2D) 4.67 cm (3.7 - 5.6) LVIDs (2D) 3.89 cm (2 - 3.8) LV FS (2D) 16.76 % - EF Teichholz (2D) 35.14 % - Ao root diameter (2D) 2.86 cm (2 - 3.7) Volumes/Mass Name Value Normal Range LA ESV SP 4CH (A/L) 31.8 ml - LA ESV SP 2CH (A/L) 27.37 ml - LA ESV BP (A/L) 33.43 ml - LA ESV BP (A/L) index 14.11 ml/m2 - LA ESV SP 4CH (MOD) 26.83 ml - LA ESV SP 2CH (MOD) 29.59 ml - LA ESV BP (MOD) 30.47 ml - LA ESV BP (MOD) index 12.86 ml/m2 - Diastolic/Systolic Function Name Value Normal Range MV E-wave Vmax 0.39 m/sec - MV deceleration time 115.69 msec - MV A-wave Vmax 0.63 m/sec - MV E:A ratio 0.62 ratio - Aortic Valve Name Value Normal Range AV Vmax 1.14 m/sec - AV VTI 20.1 cm - AV peak gradient 5.17 mmHg - AV mean gradient 3.89 mmHg - LVOT diameter 2.02 cm - LVOT Vmax 0.99 m/sec - LVOT VTI 16.45 cm - LVOT peak gradient 3.95 mmHg - LVOT mean gradient 2.45 mmHg - SV LVOT 52.45 ml - RALPH (continuity Vmax) 2.78 cm2 - RALPH (continuity VTI) 2.61 cm2 - Tricuspid Valve Name Value Normal Range TR Vmax 3.36 m/sec - TR peak gradient 45 mmHg - RAP 8 mmHg - RVSP 53 mmHg - IVC diameter 2.33 cm (1.2 - 2.3) Pulmonic Valve/Qp:Qs Name Value Normal Range PV Vmax 0.89 m/sec - PV peak gradient 3.16 mmHg - CT end-diastolic Vmax 1.42 m/sec - PV acceleration time 79.92 msec - Sykes/IV: Voiding Method Condom Catheter IV Catheter Type [Right Upper PICC Line arm] IV Catheter Type [Right Leg] Intra-osseous IV Catheter Type [Right Wrist] Peripheral IV IV Catheter Type [Right Hand] INT / Saline Lock IV Catheter Type [Left Hand] INT / Saline Lock IV Catheter Type [Left Forearm INT / Saline Lock ] IV Catheter Type [Left Triple Lumen Cath Internal Jugular] Active Medications - Current Medications Current Medications: Generic Name Dose Route Start Last Admin Trade Name Freq PRN Reason Stop Dose Admin Acetaminophen 650 mg 12/29/19 09:21 01/03/20 18:31 Tylenol PO 650 mg Q4H PRN Administration Non Cardiac Pain or Temp>100.5 Albuterol/Ipratropium 1 ampul 12/18/19 14:00 01/10/20 13:51 Duoneb *Not For Prn Use* IH 1 ampul TIDRT SHANEL Administration Lipase/Protease/Amylase 1 each 12/19/19 08:29 Pancrecorry Cabrera 10,500 Unit FEEDTUBE PRN PRN For Clogged Feeding Tube Aspirin 81 mg 12/19/19 10:00 01/10/20 09:05 Baby Aspirin PO 81 mg DAILY SHANEL Administration Atropine Sulfate 1 mg 01/09/20 13:50 01/10/20 18:00 Atropine 0.1% (Cardiac) IV 1 mg PRN PRN Administration Bradycardia Bisacodyl 10 mg 01/02/20 15:48 01/02/20 18:[address] 10 mg QDAY PRN Administration Constipation Docusate Sodium 100 mg 01/01/20 22:00 01/10/20 09:05 Colace PO 100 mg BID SHANEL Administration Famotidine 20 mg 12/20/19 10:00 01/10/20 09:06 Pepcid PO 20 mg BID SHANEL Administration Fentanyl 50 mcg 12/27/19 16:57 Sublimaze IV Q10MIN PRN ANALGESIA Folic Acid 1 mg 12/19/19 10:00 01/10/20 09:06 Folvite PO 1 mg DAILY SHANEL Administration Heparin Sodium (Porcine) 5,000 unit 12/18/19 22:00 01/10/20 09:06 Heparin SUB-Q 5,000 unit Q12HR SHANEL Administration Hydrocortisone Sodium Succinate 100 mg 01/07/20 14:00 01/10/20 14:45 Solu-Cortef IV 01/12/20 13:59 100 mg Q8HR SHANEL Administration Hydrophilic Ointment 1 applic 12/18/19 12:35 Vaseline Lip Therapy TP Q2HR PRN Dry Lips Fentanyl Citrate 2,000 mcg in 100 mls @ 5.85 mls/hr 12/27/19 17:00 01/10/20 17:49 Fentanyl Drip Premix IV 1 mcg/kg/hr TITR SHANEL 5.85 mls/hr Titration Protocol 1 MCG/KG/HR Norepinephrine 4 mg in 250 mls @ 7.5 mls/hr 12/28/19 15:00 01/09/20 09:02 Levophed Drip 4 Mg/Ns 250 Ml IV 0 mcg/min TITR SHANEL 0 mls/hr Titration Protocol 2 MCG/MIN Vasopressin 20 unit/ Sodium 101 mls @ 9.09 mls/hr 12/30/19 12:30 01/01/20 13:44 Chloride IV 0 units/min TITR SHANEL 0 mls/hr Titration Protocol 0.03 UNITS/MIN Dopamine HCl/Dextrose 800 mg in 250 mls @ 4.388 mls/hr 12/31/19 16:00 01/10/20 18:03 Intropin Drip 800 Mg/D5w 250 Ml IV 2 mcg/kg/min TITR SHANEL 4.388 mls/hr Titration Protocol 2 MCG/KG/MIN Sodium Chloride 1,000 mls @ 50 mls/hr 01/08/20 12:30 01/09/20 17:19 Nacl 0.9% 1000 Ml IV 50 mls/hr DIRECT SHANEL Administration Insulin Glargine 15 units 01/10/20 14:00 01/10/20 14:57 Lantus SUB-Q 15 units BID SHANEL Administration Insulin Human Lispro 0 unit 12/31/19 14:00 01/10/20 17:50 Humalog SUB-Q 3 unit Q4HR SHANEL Administration Protocol Levothyroxine Sodium 88 mcg 12/19/19 06:00 01/10/20 05:50 Synthroid PO 88 mcg QAM@0600 SHANEL Administration Multi-Ingred Cream/Lotion/Oil/Oint 1 applic 12/18/19 12:35 Artificial Tears Ophth Oint OU Q4HR PRN Dry Eye(s) Polyethylene Glycol 17 gm 01/01/20 22:00 01/09/20 21:55 Miralax 3350 PO 17 gm QHS SHANEL Administration Simple Syrup 15 ml 12/19/19 08:29 01/06/20 04:58 Simple Syrup FEEDTUBE 15 ml PRN PRN Administration Hypoglycemia Simple Syrup 30 ml 12/19/19 08:29 Simple Syrup FEEDTUBE PRN PRN Hypoglycemia Sodium Bicarbonate 325 mg 12/19/19 08:29 Sodium Bicarbonate FEEDTUBE PRN PRN For Clogged Feeding Tube Sodium Chloride 10 ml 12/18/19 22:00 01/10/20 09:06 Sodium Chloride Flush Syringe 10 Ml IV 10 ml BID SHANEL Administration Sodium Chloride 10 ml 12/18/19 13:31 Sodium Chloride Flush Syringe 10 Ml IV PRN PRN LINE FLUSH Nutrition/Malnutrition Assess - Dietary Evaluation Nutrition/Malnutrition Findings: Nutrition Notes Start: 12/19/19 08:16 Freq: Status: Active Protocol: Document 01/10/20 13:42 LP (Rec: 01/10/20 14:04 LP [email or web address]) Nutrition Notes Initial or Follow up Reassessment Current Diagnosis Diabetes,Sepsis,Hypertension, Heart Failure,Respiratory Failure Other Pertinent Diagnosis COVID-19 (-), pneu Current Diet Vital AF 1.2 at 65ml/hr Labs/Tests 01/09/20 Na 134 Pertinent Medications Reviewed Height 6 ft 2 in Weight 117 kg [place] Body Weight (kg) 86.36 BMI 33.1 Weight Status Obese Subjective/Other Information TF was held last night for 200ml residual. 150ml residual this AM and made RN aware only hold when greater than 250ml. Current % PO Negligible Minimum of two criteria No physical signs of malnutrition #1 Nutrition Diagnosis Inadequate oral intake Diagnosis Progress(for reassessment Continues documentation) Is patient on ventilator? Yes Is Patient Ambulatory and/or Out of Bed No REE-([facility]-confined to bed) 2469.960 Kcal/Kg value to use for calculation 17 Approximate Energy Requirements Using 1989 kcal/Kg Calculation Used for Recommendations Kcal/kg Additional Notes Protein: 172g (>/=2g/kg using IBW 86kg) Fluid 1ml/kcal Nutrition Intervention Change Diet Order: TF Nutrition Support: Vital AF 1.2 at 65ml/hr Flush 100ml q4h once resolved Kcal 1,872 Protein (gm) 117 Fluid (mL) 1,265 Goal #1 TF tolerance Goal #2 Meet at least 75% of energy and protein needs Anticipated Discharge Needs: unable to determine at this time Follow-Up By: 01/12/20 Additional Comments Follow for TF tolerance
[2020-01-10] MEDS: POLYETHYLENE GLYCOL 3350 17 GM POWDER PO SCH (22:01)
[2020-01-10] MEDS: DOPamine/D5W 800 MG/250 ML 800 MG/250 ML BAG IV SCH (22:43)
[2020-01-11] MEDS: INSULIN LISPRO 100 UNIT/ML SUB-Q SCH ×6 (02:59→21:55)
[2020-01-11] MEDS: fentaNYL DRIP Premix 2,000 MCG/100 ML BAG IV SCH ×2 (03:56→13:59)
[2020-01-11] MEDS: DOPamine/D5W 800 MG/250 ML 800 MG/250 ML BAG IV SCH (03:57)
[2020-01-11 06:34] LABS: Alanine Aminotransferase 45 units/L (7-56); Albumin 2.8 g/dL (3.9-5); BUN/Creatinine Ratio 33; Blood Urea Nitrogen 26 mg/dL (9-20); Calcium 8.7 mg/dL (8.4-10.2); Hemolysis Index 0
[2020-01-11 06:38] LABS: Hematocrit 24.9 % (35.5-45.6); Hemoglobin 7.7 gm/dl (11.8-15.2); Mean Corpuscular HGB Conc 31 % (32-34); Mean Corpuscular Volume 79 fl (84-94); Platelet Count 667 K/mm3 (140-440); Red Blood Count 3.15 M/mm3 (3.65-5.03); Red Cell Distribution Width 18.7 % (13.2-15.2)
[2020-01-11] MEDS: LEVOTHYROXINE 88 MCG TAB PO SCH (06:41)
[2020-01-11] MEDS: HYDROCORTISONE SOD SUCC 100 MG/2 ML VIAL IV SCH ×3 (06:41→21:54)
[2020-01-11] MEDS: IPRATROPIUM/ALBUTEROL SULFATE 3 ML AMPUL.NEB IH SCH ×3 (07:38→22:05)
[2020-01-11] MEDS: INSULIN GLARGINE 100 UNITS/ML SUB-Q SCH ×2 (10:00→21:55)
--- NOTE | 2020-01-11 11:45 | Progress Note ---
Assessment and Plan Acute Hypoxemic Respiratory Failure Severe Sepsis with Shock Bilateral Pneumonia PUI COVID-19 Morbid Obesity H/O CHF JOE - Surgery consult placed for tracheostomy +/- PEG - continue to wean Dopamine per cardiology (re: persistent bradycardia) - no new issues otherwise, continue care as below; - continue bowel regimen (abdomen softer) - keep peep at 8 cm H2O re: bibasilar atelectasis - continue to wean vasopressors for MAP > 65 mmHg - prn CXR's & ABG's at this point - Daily SAT and SBT assessment as tolerated - accuchecks with glycemic control per SSI (While critically ill target blood glucose of 140-180 mg/dL; avoid hypoglycemia) - sedation for target RASS 0 to -1 - continue to wean supplemental oxygen for target O2 sat's > 92% acutely - continue bronchodilators with pulmonary hygiene per RT - VAP bundle addressed - lung protective strategies - wean per pulmonary driven protocols otherwise - continue to avoid benzodiazepine's, reduce the possibility of delirium - adjust AB's per ID rec's - prn analgesia per CPOT score - Maintenance of sleep-wake cycle - continue to avoid benzodiazepine's, reduce the possibility of delirium - continue enteral nutritional support at goal rate as tolerated - G.I. & VTE prophylaxis - PT/OT/ROM exercises - continue mobility protocols for pressure ulcer prophylaxis - repeat COVID-19 test negative - continue aspiration precautions - continue accuchecks with glycemic control per SSI (While critically ill target blood glucose of 140-180 mg/dL; avoid hypoglycemia) - Monitor hemodynamics closely - continue other care per attending / other consultants - discharge planning ongoing concurrently - LTAC evaluation requested .... Re-evaluate in am & prn CONDITION: CRITICAL PROGNOSIS: GUARDED CODE STATUS: FULL CODE The high probability of a clinically significant, sudden or life-threatening deterioration of the [respiratory, cardiovascular, GI & neurologic] system(s) re quired my full and direct attention, intervention and personal management. The aggregate critical care time was [35] minutes without overlap. Time includes spent on; [x] Data Review and interpretation [x] Patient assessment and monitoring of vital signs [x] Documentation [x] Medication orders and management Subjective Date of service: 01/11/20 Principal diagnosis: Ac. Hypoxemic Resp Failure; Septic Shock; Magdiel. PNA; PUI COVID-19; CHF; JOE Interval history: Patient is seen today for: Acute Hypoxemic Respiratory Failure; Severe Sepsis with Shock; Bilateral Pneumonia; PUI COVID-19; Morbid Obesity; H/O CHF; JOE Seen and examined at bedside; 24hour events reviewed; nursing and respiratory care staff consulted; no adverse overnight events reported to me; resting peacefully in bed; trach and PEG evaluation ongoing Objective Vital Signs - 12hr 01/11/20 01/11/20 01/11/20 00:00 00:30 01:00 Temperature 95.8 F L Pulse Rate 41 L 43 L 47 L Pulse Rate [ Bilateral] Pulse Rate [ 41 L From Monitor] Respiratory 16 10 L 19 Rate Respiratory Rate [Bilateral ] Blood Pressure 98/49 102/57 100/56 O2 Sat by Pulse 96 96 97 Oximetry 01/11/20 01/11/20 01/11/20 01:30 02:00 02:30 Temperature Pulse Rate 47 L 45 L 49 L Pulse Rate [ Bilateral] Pulse Rate [ From Monitor] Respiratory 15 3 L 21 Rate Respiratory Rate [Bilateral ] Blood Pressure 97/52 105/47 103/50 O2 Sat by Pulse 98 95 98 Oximetry 01/11/20 01/11/20 01/11/20 03:01 03:30 04:00 Temperature Pulse Rate 47 L 60 70 Pulse Rate [ Bilateral] Pulse Rate [ 70 From Monitor] Respiratory 20 17 17 Rate Respiratory Rate [Bilateral ] Blood Pressure 111/54 105/57 124/51 O2 Sat by Pulse 100 97 95 Oximetry 01/11/20 01/11/20 01/11/20 04:31 04:52 05:00 Temperature 98 F Pulse Rate 57 L 67 Pulse Rate [ Bilateral] Pulse Rate [ From Monitor] Respiratory 10 L Rate Respiratory Rate [Bilateral ] Blood Pressure 110/51 102/49 O2 Sat by Pulse 99 97 Oximetry 01/11/20 01/11/20 01/11/20 05:01 05:31 06:01 Temperature Pulse Rate 59 L 76 58 L Pulse Rate [ Bilateral] Pulse Rate [ From Monitor] Respiratory 20 14 28 H Rate Respiratory Rate [Bilateral ] Blood Pressure 106/48 108/49 122/58 O2 Sat by Pulse 98 97 98 Oximetry 01/11/20 01/11/20 01/11/20 06:30 07:00 07:31 Temperature Pulse Rate 57 L 59 L 68 Pulse Rate [ Bilateral] Pulse Rate [ From Monitor] Respiratory 22 26 H 16 Rate Respiratory Rate [Bilateral ] Blood Pressure 120/61 131/68 130/68 O2 Sat by Pulse 100 98 99 Oximetry 01/11/20 01/11/20 01/11/20 07:40 08:00 08:01 Temperature 99.5 F Pulse Rate 56 L 58 L Pulse Rate [ 56 L Bilateral] Pulse Rate [ From Monitor] Respiratory 26 H 27 H Rate Respiratory 18 Rate [Bilateral ] Blood Pressure 141/70 O2 Sat by Pulse 97 98 Oximetry 01/11/20 01/11/20 01/11/20 08:20 08:31 09:00 Temperature Pulse Rate 59 L 55 L 56 L Pulse Rate [ Bilateral] Pulse Rate [ From Monitor] Respiratory 21 15 Rate Respiratory Rate [Bilateral ] Blood Pressure 131/68 121/56 110/58 O2 Sat by Pulse 98 96 97 Oximetry 01/11/20 01/11/20 01/11/20 09:31 10:00 11:32 Temperature Pulse Rate 66 51 L 51 L Pulse Rate [ Bilateral] Pulse Rate [ From Monitor] Respiratory 14 17 Rate Respiratory Rate [Bilateral ] Blood Pressure 104/63 102/57 102/57 O2 Sat by Pulse 95 95 95 Oximetry Constitutional: other (elderly obese AAM with mildly increrased respiratory effort at rest on MVS) Eyes: non-icteric ENT: oropharynx moist, other (ETT 24 cm KOLBY) Neck: supple, no lymphadenopathy, no JVD Effort: mildly labored Ascultation: Bilateral: diminished breath sounds, rhonchi, other (diminished bibasilar air entry) Percussion: Bilateral: not dull Cardiovascular: regular rate and rhythm, other (S1,S2) Gastrointestinal: normoactive bowel sounds, soft, non-tender, other (protuberant) Integumentary: rash (stasis dermatyitis) Extremities: no cyanosis, pink and warm, pulses normal, no ischemia or petechiae, edema (trace) Neurologic: normal mental status, non-focal exam, pupils equal and round, CN II- XII normal, motor strength normal and (obeys simple commands) Psychiatric: mood appropriate, affect normal CBC and BMP: 01/11/20 05:45 01/11/20 05:45 ABG, PT/INR, D-dimer: ABG ABG pH 7.407 pH Units (7.350-7.450) 01/10/20 04:20 ABG pCO2 45.1 mm Hg 01/10/20 04:20 ABG pO2 95.3 mm Hg (80.0-90.0) H 01/10/20 04:20 ABG O2 Saturation 97.7 % (95.0-99.0) 01/10/20 04:20 PT/INR, D-dimer PT 14.0 Sec. (12.2-14.9) 12/18/19 14:45 INR 1.10 (0.87-1.13) 12/18/19 14:45 D-Dimer 534.45 ng/mlDDU (0-234) H 12/18/19 14:45 Abnormal lab findings: Abnormal Labs 12/18/19 12/18/19 12/18/19 12:23 14:45 14:45 WBC RBC Hgb 10.4 L Hct 35.2 L MCV MCH 25 L MCHC 30 L RDW 18.8 H Plt Count Lymph % (Auto) [place] % (Auto) 11.6 H Eos % (Auto) 4.8 H Lymph # [place] # 1.0 H Eos # Seg Neutrophils % Monocytes % (Manual) Monocytes # (Manual) D-Dimer ABG pH ABG pO2 ABG HCO3 ABG O2 Saturation ABG Base Excess ABG Hemoglobin Oxyhemoglobin Sodium Potassium Chloride Carbon Dioxide BUN Creatinine Glucose POC Glucose 328 H Lactic Acid Calcium Magnesium AST ALT Lactate Dehydrogenase Total Creatine Kinase 40 L C-Reactive Protein Total Protein Albumin Urine WBC (Auto) Urine Total Protein Digoxin Salicylates Acetaminophen 12/18/19 12/18/19 12/18/19 14:45 14:45 14:45 WBC RBC Hgb Hct MCV MCH MCHC RDW Plt Count Lymph % (Auto) [place] % (Auto) Eos % (Auto) Lymph # [place] # Eos # Seg Neutrophils % Monocytes % (Manual) Monocytes # (Manual) D-Dimer 534.45 H ABG pH ABG pO2 ABG HCO3 ABG O2 Saturation ABG Base Excess ABG Hemoglobin Oxyhemoglobin Sodium 156 H Potassium Chloride 112.3 H Carbon Dioxide 31 H BUN 32 H Creatinine Glucose 328 H POC Glucose Lactic Acid Calcium Magnesium AST ALT Lactate Dehydrogenase 235 H Total Creatine Kinase C-Reactive Protein 8.50 H Total Protein Albumin 3.6 L Urine WBC (Auto) Urine Total Protein Digoxin 0.3 L Salicylates < 0.3 L Acetaminophen 06/12/18/19 12/18/19 14:45 14:45 16:00 WBC RBC Hgb Hct MCV MCH MCHC RDW Plt Count Lymph % (Auto) [place] % (Auto) Eos % (Auto) Lymph # [place] # Eos # Seg Neutrophils % Monocytes % (Manual) Monocytes # (Manual) D-Dimer ABG pH ABG pO2 69.8 L ABG HCO3 31.8 H ABG O2 Saturation ABG Base Excess 5.4 H ABG Hemoglobin 10.0 L Oxyhemoglobin 92.9 L Sodium Potassium Chloride Carbon Dioxide BUN Creatinine Glucose 314 H POC Glucose Lactic Acid Calcium Magnesium AST ALT Lactate Dehydrogenase 236 H Total Creatine Kinase C-Reactive Protein 8.40 H Total Protein Albumin Urine WBC (Auto) Urine Total Protein Digoxin Salicylates Acetaminophen < 5.0 L 12/18/19 12/18/19 12/18/19 16:35 18:30 22:56 WBC RBC Hgb Hct MCV MCH MCHC RDW Plt Count Lymph % (Auto) [place] % (Auto) Eos % (Auto) Lymph # [place] # Eos # Seg Neutrophils % Monocytes % (Manual) Monocytes # (Manual) D-Dimer ABG pH ABG pO2 ABG HCO3 ABG O2 Saturation ABG Base Excess ABG Hemoglobin Oxyhemoglobin Sodium Potassium Chloride Carbon Dioxide BUN Creatinine Glucose POC Glucose 310 H 353 H Lactic Acid 2.50 H* Calcium Magnesium AST ALT Lactate Dehydrogenase Total Creatine Kinase C-Reactive Protein Total Protein Albumin Urine WBC (Auto) Urine Total Protein Digoxin Salicylates Acetaminophen 12/19/19 12/19/19 12/19/19 04:13 04:13 06:00 WBC RBC Hgb 10.0 L Hct 34.2 L MCV MCH 25 L MCHC 29 L RDW 19.0 H Plt Count Lymph % (Auto) [place] % (Auto) 10.1 H Eos % (Auto) Lymph # [place] # 1.1 H Eos # Seg Neutrophils % 71.8 H Monocytes % (Manual) Monocytes # (Manual) D-Dimer ABG pH ABG pO2 186.5 H ABG HCO3 27.8 H ABG O2 Saturation 99.1 H ABG Base Excess ABG Hemoglobin 10.4 L Oxyhemoglobin Sodium 157 H Potassium Chloride 119.1 H Carbon Dioxide BUN 26 H Creatinine Glucose 302 H POC Glucose Lactic Acid Calcium 7.9 L Magnesium AST 85 H ALT 61 H Lactate Dehydrogenase Total Creatine Kinase C-Reactive Protein Total Protein Albumin 3.0 L Urine WBC (Auto) Urine Total Protein Digoxin Salicylates Acetaminophen 12/19/19 12/19/19 12/19/19 08:30 11:55 16:50 WBC RBC Hgb Hct MCV MCH MCHC RDW Plt Count Lymph % (Auto) [place] % (Auto) Eos % (Auto) Lymph # [place] # Eos # Seg Neutrophils % Monocytes % (Manual) Monocytes # (Manual) D-Dimer ABG pH ABG pO2 ABG HCO3 ABG O2 Saturation ABG Base Excess ABG Hemoglobin Oxyhemoglobin Sodium Potassium Chloride Carbon Dioxide BUN Creatinine Glucose POC Glucose 264 H 251 H Lactic Acid Calcium Magnesium AST ALT Lactate Dehydrogenase Total Creatine Kinase C-Reactive Protein Total Protein Albumin Urine WBC (Auto) 7.0 H Urine Total Protein Digoxin Salicylates Acetaminophen 12/19/19 12/19/19 12/20/19 17:41 23:42 03:35 WBC RBC Hgb Hct MCV MCH MCHC RDW Plt Count Lymph % (Auto) [place] % (Auto) Eos % (Auto) Lymph # [place] # Eos # Seg Neutrophils % Monocytes % (Manual) Monocytes # (Manual) D-Dimer ABG pH ABG pO2 ABG HCO3 27.7 H ABG O2 Saturation ABG Base Excess ABG Hemoglobin 11.6 L Oxyhemoglobin 94.9 L Sodium Potassium Chloride Carbon Dioxide BUN Creatinine Glucose POC Glucose 180 H 205 H Lactic Acid Calcium Magnesium AST ALT Lactate Dehydrogenase Total Creatine Kinase C-Reactive Protein Total Protein Albumin Urine WBC (Auto) Urine Total Protein Digoxin Salicylates Acetaminophen 12/20/19 12/20/19 12/20/19 04:45 04:45 05:27 WBC RBC Hgb 9.4 L Hct 31.4 L MCV MCH 25 L MCHC 30 L RDW 19.4 H Plt Count Lymph % (Auto) [place] % (Auto) 10.2 H Eos % (Auto) 6.0 H Lymph # 0.9 L [place] # Eos # Seg Neutrophils % Monocytes % (Manual) Monocytes # (Manual) D-Dimer ABG pH ABG pO2 ABG HCO3 ABG O2 Saturation ABG Base Excess ABG Hemoglobin Oxyhemoglobin Sodium 153 H Potassium Chloride 114.6 H Carbon Dioxide BUN Creatinine Glucose 170 H POC Glucose 188 H Lactic Acid Calcium 7.9 L Magnesium AST ALT Lactate Dehydrogenase Total Creatine Kinase C-Reactive Protein Total Protein Albumin Urine WBC (Auto) Urine Total Protein Digoxin Salicylates Acetaminophen 12/20/19 12/20/19 12/21/19 12:26 18:20 00:20 WBC RBC Hgb Hct MCV MCH MCHC RDW Plt Count Lymph % (Auto) [place] % (Auto) Eos % (Auto) Lymph # [place] # Eos # Seg Neutrophils % Monocytes % (Manual) Monocytes # (Manual) D-Dimer ABG pH ABG pO2 ABG HCO3 ABG O2 Saturation ABG Base Excess ABG Hemoglobin Oxyhemoglobin Sodium Potassium Chloride Carbon Dioxide BUN Creatinine Glucose POC Glucose 200 H 263 H 218 H Lactic Acid Calcium Magnesium AST ALT Lactate Dehydrogenase Total Creatine Kinase C-Reactive Protein Total Protein Albumin Urine WBC (Auto) Urine Total Protein Digoxin Salicylates Acetaminophen 12/21/19 12/21/19 12/21/19 04:38 05:26 12:35 WBC RBC Hgb Hct MCV MCH MCHC RDW Plt Count Lymph % (Auto) [place] % (Auto) Eos % (Auto) Lymph # [place] # Eos # Seg Neutrophils % Monocytes % (Manual) Monocytes # (Manual) D-Dimer ABG pH ABG pO2 ABG HCO3 ABG O2 Saturation ABG Base Excess ABG Hemoglobin Oxyhemoglobin Sodium 149 H Potassium 3.5 L Chloride 110.5 H Carbon Dioxide BUN Creatinine Glucose 158 H POC Glucose 193 H 193 H Lactic Acid Calcium Magnesium AST ALT Lactate Dehydrogenase Total Creatine Kinase C-Reactive Protein Total Protein Albumin Urine WBC (Auto) Urine Total Protein Digoxin Salicylates Acetaminophen 12/21/19 12/22/19 12/22/19 18:29 00:03 05:15 WBC RBC Hgb 10.3 L Hct 34.7 L MCV MCH 25 L MCHC 30 L RDW 19.4 H Plt Count Lymph % (Auto) 9.0 L [place] % (Auto) 12.3 H Eos % (Auto) 5.0 H Lymph # 0.5 L [place] # Eos # Seg Neutrophils % 73.2 H Monocytes % (Manual) Monocytes # (Manual) D-Dimer ABG pH ABG pO2 ABG HCO3 ABG O2 Saturation ABG Base Excess ABG Hemoglobin Oxyhemoglobin Sodium Potassium Chloride Carbon Dioxide BUN Creatinine Glucose POC Glucose 186 H 143 H Lactic Acid Calcium Magnesium AST ALT Lactate Dehydrogenase Total Creatine Kinase C-Reactive Protein Total Protein Albumin Urine WBC (Auto) Urine Total Protein Digoxin Salicylates Acetaminophen 12/22/19 12/22/19 12/22/19 05:15 06:02 12:13 WBC RBC Hgb Hct MCV MCH MCHC RDW Plt Count Lymph % (Auto) [place] % (Auto) Eos % (Auto) Lymph # [place] # Eos # Seg Neutrophils % Monocytes % (Manual) Monocytes # (Manual) D-Dimer ABG pH ABG pO2 ABG HCO3 ABG O2 Saturation ABG Base Excess ABG Hemoglobin Oxyhemoglobin Sodium 152 H Potassium Chloride 113.5 H Carbon Dioxide BUN Creatinine Glucose 126 H POC Glucose 144 H 159 H Lactic Acid Calcium Magnesium AST ALT Lactate Dehydrogenase Total Creatine Kinase C-Reactive Protein Total Protein Albumin Urine WBC (Auto) Urine Total Protein Digoxin Salicylates Acetaminophen 12/22/19 12/22/19 12/23/19 18:03 23:50 05:27 WBC RBC Hgb Hct MCV MCH MCHC RDW Plt Count Lymph % (Auto) [place] % (Auto) Eos % (Auto) Lymph # [place] # Eos # Seg Neutrophils % Monocytes % (Manual) Monocytes # (Manual) D-Dimer ABG pH ABG pO2 ABG HCO3 ABG O2 Saturation ABG Base Excess ABG Hemoglobin Oxyhemoglobin Sodium Potassium Chloride Carbon Dioxide BUN Creatinine Glucose POC Glucose 140 H 227 H 185 H Lactic Acid Calcium Magnesium AST ALT Lactate Dehydrogenase Total Creatine Kinase C-Reactive Protein Total Protein Albumin Urine WBC (Auto) Urine Total Protein Digoxin Salicylates Acetaminophen 12/23/19 12/23/19 12/23/19 12:13 16:05 16:40 WBC RBC Hgb Hct MCV MCH MCHC RDW Plt Count Lymph % (Auto) [place] % (Auto) Eos % (Auto) Lymph # [place] # Eos # Seg Neutrophils % Monocytes % (Manual) Monocytes # (Manual) D-Dimer ABG pH 7.259 L ABG pO2 76.2 L ABG HCO3 30.6 H ABG O2 Saturation 94.6 L ABG Base Excess ABG Hemoglobin 11.5 L Oxyhemoglobin 92.2 L Sodium 163 H* D Potassium 3.4 L Chloride 120.1 H Carbon Dioxide BUN Creatinine Glucose 162 H POC Glucose 132 H Lactic Acid Calcium Magnesium AST ALT Lactate Dehydrogenase Total Creatine Kinase C-Reactive Protein Total Protein Albumin Urine WBC (Auto) Urine Total Protein Digoxin Salicylates Acetaminophen 12/23/19 12/24/19 12/24/19 17:53 00:48 04:20 WBC RBC Hgb Hct MCV MCH MCHC RDW Plt Count Lymph % (Auto) [place] % (Auto) Eos % (Auto) Lymph # [place] # Eos # Seg Neutrophils % Monocytes % (Manual) Monocytes # (Manual) D-Dimer ABG pH ABG pO2 ABG HCO3 30.4 H ABG O2 Saturation ABG Base Excess 3.9 H ABG Hemoglobin 10.3 L Oxyhemoglobin 94.4 L Sodium Potassium Chloride Carbon Dioxide BUN Creatinine Glucose POC Glucose 180 H 174 H Lactic Acid Calcium Magnesium AST ALT Lactate Dehydrogenase Total Creatine Kinase C-Reactive Protein Total Protein Albumin Urine WBC (Auto) Urine Total Protein Digoxin Salicylates Acetaminophen 12/24/19 12/24/19 12/24/19 04:53 04:53 11:50 WBC RBC Hgb 9.7 L Hct 33.2 L MCV MCH 25 L MCHC 29 L RDW 20.1 H Plt Count Lymph % (Auto) [place] % (Auto) Eos % (Auto) Lymph # [place] # Eos # Seg Neutrophils % Monocytes % (Manual) 15.0 H Monocytes # (Manual) 0.9 H D-Dimer ABG pH ABG pO2 ABG HCO3 ABG O2 Saturation ABG Base Excess ABG Hemoglobin Oxyhemoglobin Sodium 163 H* Potassium 3.2 L Chloride 122.6 H Carbon Dioxide BUN Creatinine Glucose 168 H POC Glucose 190 H Lactic Acid Calcium Magnesium AST ALT Lactate Dehydrogenase Total Creatine Kinase C-Reactive Protein Total Protein Albumin Urine WBC (Auto) Urine Total Protein Digoxin Salicylates Acetaminophen 12/24/19 12/24/19 12/24/19 15:00 16:28 21:15 WBC RBC Hgb Hct MCV MCH MCHC RDW Plt Count Lymph % (Auto) [place] % (Auto) Eos % (Auto) Lymph # [place] # Eos # Seg Neutrophils % Monocytes % (Manual) Monocytes # (Manual) D-Dimer ABG pH ABG pO2 ABG HCO3 ABG O2 Saturation ABG Base Excess ABG Hemoglobin Oxyhemoglobin Sodium 165 H* D 163 H* Potassium Chloride Carbon Dioxide BUN Creatinine Glucose POC Glucose 160 H Lactic Acid Calcium Magnesium AST ALT Lactate Dehydrogenase Total Creatine Kinase C-Reactive Protein Total Protein Albumin Urine WBC (Auto) Urine Total Protein Digoxin Salicylates Acetaminophen 12/25/19 12/25/19 12/25/19 00:31 05:38 05:46 WBC RBC Hgb 9.7 L Hct 32.5 L MCV MCH 25 L MCHC 30 L RDW 19.4 H Plt Count Lymph % (Auto) [place] % (Auto) Eos % (Auto) Lymph # [place] # Eos # Seg Neutrophils % Monocytes % (Manual) Monocytes # (Manual) D-Dimer ABG pH ABG pO2 ABG HCO3 ABG O2 Saturation ABG Base Excess ABG Hemoglobin Oxyhemoglobin Sodium Potassium Chloride Carbon Dioxide BUN Creatinine Glucose POC Glucose 182 H 194 H Lactic Acid Calcium Magnesium AST ALT Lactate Dehydrogenase Total Creatine Kinase C-Reactive Protein Total Protein Albumin Urine WBC (Auto) Urine Total Protein Digoxin Salicylates Acetaminophen 12/25/19 12/25/19 12/25/19 05:46 11:35 11:38 WBC RBC Hgb Hct MCV MCH MCHC RDW Plt Count Lymph % (Auto) [place] % (Auto) Eos % (Auto) Lymph # [place] # Eos # Seg Neutrophils % Monocytes % (Manual) Monocytes # (Manual) D-Dimer ABG pH 7.330 L ABG pO2 65.7 L ABG HCO3 32.6 H ABG O2 Saturation 92.5 L ABG Base Excess 5.3 H ABG Hemoglobin 10.4 L Oxyhemoglobin 90.0 L Sodium 166 H* Potassium 2.9 L* Chloride 124.5 H Carbon Dioxide BUN Creatinine Glucose 190 H POC Glucose 192 H Lactic Acid Calcium Magnesium AST ALT Lactate Dehydrogenase Total Creatine Kinase C-Reactive Protein Total Protein Albumin Urine WBC (Auto) Urine Total Protein Digoxin Salicylates Acetaminophen 12/25/19 12/25/19 12/25/19 13:01 16:45 17:20 WBC RBC Hgb Hct MCV MCH MCHC RDW Plt Count Lymph % (Auto) [place] % (Auto) Eos % (Auto) Lymph # [place] # Eos # Seg Neutrophils % Monocytes % (Manual) Monocytes # (Manual) D-Dimer ABG pH 7.296 L ABG pO2 101.5 H ABG HCO3 33.2 H ABG O2 Saturation ABG Base Excess 5.3 H ABG Hemoglobin 9.6 L Oxyhemoglobin 94.6 L Sodium 174 H* Potassium Chloride Carbon Dioxide BUN Creatinine Glucose POC Glucose Lactic Acid Calcium Magnesium AST ALT Lactate Dehydrogenase Total Creatine Kinase C-Reactive Protein Total Protein Albumin Urine WBC (Auto) Urine Total Protein < 4 L Digoxin Salicylates Acetaminophen 12/25/19 12/25/19 12/26/19 17:48 18:50 00:43 WBC RBC Hgb Hct MCV MCH MCHC RDW Plt Count Lymph % (Auto) [place] % (Auto) Eos % (Auto) Lymph # [place] # Eos # Seg Neutrophils % Monocytes % (Manual) Monocytes # (Manual) D-Dimer ABG pH ABG pO2 ABG HCO3 ABG O2 Saturation ABG Base Excess ABG Hemoglobin Oxyhemoglobin Sodium 166 H* 164 H* Potassium Chloride 127.3 H Carbon Dioxide BUN Creatinine Glucose 220 H POC Glucose 252 H Lactic Acid Calcium Magnesium AST ALT Lactate Dehydrogenase Total Creatine Kinase C-Reactive Protein Total Protein Albumin Urine WBC (Auto) Urine Total Protein Digoxin Salicylates Acetaminophen 12/26/19 12/26/19 12/26/19 05:31 08:07 08:07 WBC 4.3 L RBC Hgb 9.6 L Hct 32.1 L MCV MCH 26 L MCHC 30 L RDW 20.5 H Plt Count Lymph % (Auto) [place] % (Auto) Eos % (Auto) Lymph # [place] # Eos # Seg Neutrophils % Monocytes % (Manual) Monocytes # (Manual) D-Dimer ABG pH ABG pO2 ABG HCO3 ABG O2 Saturation ABG Base Excess ABG Hemoglobin Oxyhemoglobin Sodium 162 H* Potassium Chloride 122.1 H Carbon Dioxide BUN Creatinine Glucose 247 H POC Glucose 187 H Lactic Acid Calcium Magnesium AST ALT Lactate Dehydrogenase Total Creatine Kinase C-Reactive Protein Total Protein Albumin Urine WBC (Auto) Urine Total Protein Digoxin Salicylates Acetaminophen 12/26/19 12/26/19 12/26/19 08:07 12:20 16:25 WBC RBC Hgb Hct MCV MCH MCHC RDW Plt Count Lymph % (Auto) [place] % (Auto) Eos % (Auto) Lymph # [place] # Eos # Seg Neutrophils % Monocytes % (Manual) Monocytes # (Manual) D-Dimer ABG pH 7.290 L ABG pO2 73.2 L ABG HCO3 33.2 H ABG O2 Saturation 94.9 L ABG Base Excess 5.2 H ABG Hemoglobin 10.0 L Oxyhemoglobin 92.5 L Sodium 159 H Potassium Chloride Carbon Dioxide BUN Creatinine Glucose POC Glucose 234 H Lactic Acid Calcium Magnesium AST ALT Lactate Dehydrogenase Total Creatine Kinase C-Reactive Protein Total Protein Albumin Urine WBC (Auto) Urine Total Protein Digoxin Salicylates Acetaminophen 12/26/19 12/26/19 12/26/19 17:33 22:35 23:30 WBC RBC Hgb Hct MCV MCH MCHC RDW Plt Count Lymph % (Auto) [place] % (Auto) Eos % (Auto) Lymph # [place] # Eos # Seg Neutrophils % Monocytes % (Manual) Monocytes # (Manual) D-Dimer ABG pH ABG pO2 ABG HCO3 ABG O2 Saturation ABG Base Excess ABG Hemoglobin Oxyhemoglobin Sodium Potassium Chloride Carbon Dioxide BUN Creatinine Glucose POC Glucose 244 H 208 H 287 H Lactic Acid Calcium Magnesium AST ALT Lactate Dehydrogenase Total Creatine Kinase C-Reactive Protein Total Protein Albumin Urine WBC (Auto) Urine Total Protein Digoxin Salicylates Acetaminophen 12/27/19 12/27/19 12/27/19 03:48 03:48 03:48 WBC RBC Hgb 10.1 L Hct 35.4 L MCV MCH 25 L MCHC 29 L RDW 20.1 H Plt Count Lymph % (Auto) [place] % (Auto) Eos % (Auto) Lymph # [place] # Eos # Seg Neutrophils % Monocytes % (Manual) Monocytes # (Manual) D-Dimer ABG pH ABG pO2 ABG HCO3 ABG O2 Saturation ABG Base Excess ABG Hemoglobin Oxyhemoglobin Sodium 160 H Potassium Chloride 118.8 H Carbon Dioxide 33 H BUN Creatinine Glucose 217 H POC Glucose Lactic Acid Calcium Magnesium 2.70 H AST ALT Lactate Dehydrogenase Total Creatine Kinase C-Reactive Protein Total Protein Albumin Urine WBC (Auto) Urine Total Protein Digoxin Salicylates Acetaminophen 12/27/19 12/27/19 12/27/19 05:50 11:58 16:05 WBC RBC Hgb Hct MCV MCH MCHC RDW Plt Count Lymph % (Auto) [place] % (Auto) Eos % (Auto) Lymph # [place] # Eos # Seg Neutrophils % Monocytes % (Manual) Monocytes # (Manual) D-Dimer ABG pH 7.180 L* ABG pO2 73.6 L ABG HCO3 34.8 H ABG O2 Saturation 92.7 L ABG Base Excess 3.8 H ABG Hemoglobin 12.0 L Oxyhemoglobin 90.2 L Sodium Potassium Chloride Carbon Dioxide BUN Creatinine Glucose POC Glucose 224 H 218 H Lactic Acid Calcium Magnesium AST ALT Lactate Dehydrogenase Total Creatine Kinase C-Reactive Protein Total Protein Albumin Urine WBC (Auto) Urine Total Protein Digoxin Salicylates Acetaminophen 12/27/19 12/27/19 12/27/19 18:05 19:50 21:53 WBC RBC Hgb Hct MCV MCH MCHC RDW Plt Count Lymph % (Auto) [place] % (Auto) Eos % (Auto) Lymph # [place] # Eos # Seg Neutrophils % Monocytes % (Manual) Monocytes # (Manual) D-Dimer ABG pH 7.328 L ABG pO2 49.9 L ABG HCO3 33.3 H ABG O2 Saturation 87.1 L ABG Base Excess 5.7 H ABG Hemoglobin 11.2 L Oxyhemoglobin 84.8 L Sodium Potassium Chloride Carbon Dioxide BUN Creatinine Glucose POC Glucose 214 H 178 H Lactic Acid Calcium Magnesium AST ALT Lactate Dehydrogenase Total Creatine Kinase C-Reactive Protein Total Protein Albumin Urine WBC (Auto) Urine Total Protein Digoxin Salicylates Acetaminophen 12/28/19 12/28/19 12/28/19 00:42 04:37 04:37 WBC RBC Hgb 9.8 L Hct 33.5 L MCV MCH 25 L MCHC 29 L RDW 21.1 H Plt Count Lymph % (Auto) [place] % (Auto) Eos % (Auto) Lymph # [place] # Eos # Seg Neutrophils % Monocytes % (Manual) Monocytes # (Manual) D-Dimer ABG pH ABG pO2 ABG HCO3 ABG O2 Saturation ABG Base Excess ABG Hemoglobin Oxyhemoglobin Sodium 157 H Potassium 3.4 L Chloride 117.5 H Carbon Dioxide BUN Creatinine Glucose 193 H POC Glucose 157 H Lactic Acid Calcium Magnesium AST ALT Lactate Dehydrogenase Total Creatine Kinase C-Reactive Protein Total Protein Albumin Urine WBC (Auto) Urine Total Protein Digoxin Salicylates Acetaminophen 12/28/19 12/28/19 12/28/19 04:52 05:19 12:05 WBC RBC Hgb Hct MCV MCH MCHC RDW Plt Count Lymph % (Auto) [place] % (Auto) Eos % (Auto) Lymph # [place] # Eos # Seg Neutrophils % Monocytes % (Manual) Monocytes # (Manual) D-Dimer ABG pH ABG pO2 51.7 L ABG HCO3 28.7 H ABG O2 Saturation 89.9 L ABG Base Excess 4.1 H ABG Hemoglobin 9.7 L Oxyhemoglobin 87.7 L Sodium Potassium Chloride Carbon Dioxide BUN Creatinine Glucose POC Glucose 202 H 248 H Lactic Acid Calcium Magnesium AST ALT Lactate Dehydrogenase Total Creatine Kinase C-Reactive Protein Total Protein Albumin Urine WBC (Auto) Urine Total Protein Digoxin Salicylates Acetaminophen 12/28/19 12/28/19 12/28/19 18:11 21:15 23:22 WBC RBC Hgb Hct MCV MCH MCHC RDW Plt Count Lymph % (Auto) [place] % (Auto) Eos % (Auto) Lymph # [place] # Eos # Seg Neutrophils % Monocytes % (Manual) Monocytes # (Manual) D-Dimer ABG pH ABG pO2 ABG HCO3 ABG O2 Saturation ABG Base Excess ABG Hemoglobin Oxyhemoglobin Sodium Potassium Chloride Carbon Dioxide BUN Creatinine Glucose POC Glucose 226 H 217 H 227 H Lactic Acid Calcium Magnesium AST ALT Lactate Dehydrogenase Total Creatine Kinase C-Reactive Protein Total Protein Albumin Urine WBC (Auto) Urine Total Protein Digoxin Salicylates Acetaminophen 12/29/19 12/29/19 12/29/19 04:09 04:59 04:59 WBC 11.1 H RBC Hgb 9.3 L Hct 31.1 L MCV 81 L MCH 24 L MCHC 30 L RDW 19.9 H Plt Count Lymph % (Auto) [place] % (Auto) Eos % (Auto) Lymph # [place] # Eos # Seg Neutrophils % Monocytes % (Manual) Monocytes # (Manual) D-Dimer ABG pH 7.473 H ABG pO2 126.1 H ABG HCO3 29.2 H ABG O2 Saturation ABG Base Excess 5.1 H ABG Hemoglobin 8.4 L Oxyhemoglobin Sodium 157 H Potassium 3.2 L Chloride 118.2 H Carbon Dioxide BUN Creatinine 1.7 H Glucose 229 H POC Glucose Lactic Acid Calcium Magnesium AST ALT Lactate Dehydrogenase Total Creatine Kinase C-Reactive Protein Total Protein Albumin Urine WBC (Auto) Urine Total Protein Digoxin Salicylates Acetaminophen 12/29/19 12/29/19 12/29/19 05:15 12:13 17:59 WBC RBC Hgb Hct MCV MCH MCHC RDW Plt Count Lymph % (Auto) [place] % (Auto) Eos % (Auto) Lymph # [place] # Eos # Seg Neutrophils % Monocytes % (Manual) Monocytes # (Manual) D-Dimer ABG pH ABG pO2 ABG HCO3 ABG O2 Saturation ABG Base Excess ABG Hemoglobin Oxyhemoglobin Sodium Potassium Chloride Carbon Dioxide BUN Creatinine Glucose POC Glucose 221 H 392 H 365 H Lactic Acid Calcium Magnesium AST ALT Lactate Dehydrogenase Total Creatine Kinase C-Reactive Protein Total Protein Albumin Urine WBC (Auto) Urine Total Protein Digoxin Salicylates Acetaminophen 12/29/19 12/29/19 12/30/19 20:25 23:38 04:45 WBC RBC Hgb Hct MCV MCH MCHC RDW Plt Count Lymph % (Auto) [place] % (Auto) Eos % (Auto) Lymph # [place] # Eos # Seg Neutrophils % Monocytes % (Manual) Monocytes # (Manual) D-Dimer ABG pH 7.261 L 7.343 L ABG pO2 60.3 L 54.3 L ABG HCO3 32.1 H 30.9 H ABG O2 Saturation 87.6 L 88.3 L ABG Base Excess 3.7 H 4.0 H ABG Hemoglobin 9.7 L 11.6 L Oxyhemoglobin 85.2 L 86.0 L Sodium Potassium Chloride Carbon Dioxide BUN Creatinine Glucose POC Glucose 402 H Lactic Acid Calcium Magnesium AST ALT Lactate Dehydrogenase Total Creatine Kinase C-Reactive Protein Total Protein Albumin Urine WBC (Auto) Urine Total Protein Digoxin Salicylates Acetaminophen 12/30/19 12/30/19 12/30/19 05:06 05:06 05:06 WBC 11.7 H RBC Hgb 9.4 L Hct 32.4 L MCV 83 L MCH 24 L MCHC 29 L RDW 20.2 H Plt Count Lymph % (Auto) [place] % (Auto) Eos % (Auto) Lymph # [place] # Eos # Seg Neutrophils % Monocytes % (Manual) Monocytes # (Manual) D-Dimer ABG pH ABG pO2 ABG HCO3 ABG O2 Saturation ABG Base Excess ABG Hemoglobin Oxyhemoglobin Sodium 159 H Potassium 3.2 L Chloride 120.1 H Carbon Dioxide 31 H BUN Creatinine 1.9 H Glucose 404 H POC Glucose Lactic Acid Calcium Magnesium 2.60 H AST ALT Lactate Dehydrogenase Total Creatine Kinase C-Reactive Protein Total Protein Albumin Urine WBC (Auto) Urine Total Protein Digoxin Salicylates Acetaminophen 12/30/19 12/30/19 12/30/19 06:26 12:29 13:44 WBC RBC Hgb Hct MCV MCH MCHC RDW Plt Count Lymph % (Auto) [place] % (Auto) Eos % (Auto) Lymph # [place] # Eos # Seg Neutrophils % Monocytes % (Manual) Monocytes # (Manual) D-Dimer ABG pH ABG pO2 ABG HCO3 ABG O2 Saturation ABG Base Excess ABG Hemoglobin Oxyhemoglobin Sodium Potassium Chloride Carbon Dioxide BUN Creatinine Glucose POC Glucose 399 H 469 H > 500 H Lactic Acid Calcium Magnesium AST ALT Lactate Dehydrogenase Total Creatine Kinase C-Reactive Protein Total Protein Albumin Urine WBC (Auto) Urine Total Protein Digoxin Salicylates Acetaminophen 12/30/19 12/30/19 12/30/19 13:51 16:32 18:05 WBC RBC Hgb Hct MCV MCH MCHC RDW Plt Count Lymph % (Auto) [place] % (Auto) Eos % (Auto) Lymph # [place] # Eos # Seg Neutrophils % Monocytes % (Manual) Monocytes # (Manual) D-Dimer ABG pH ABG pO2 ABG HCO3 ABG O2 Saturation ABG Base Excess ABG Hemoglobin Oxyhemoglobin Sodium Potassium Chloride Carbon Dioxide BUN Creatinine Glucose POC Glucose > 500 H 445 H 429 H Lactic Acid Calcium Magnesium AST ALT Lactate Dehydrogenase Total Creatine Kinase C-Reactive Protein Total Protein Albumin Urine WBC (Auto) Urine Total Protein Digoxin Salicylates Acetaminophen 12/30/19 12/30/19 12/31/19 21:42 Unknown 00:00 WBC RBC Hgb Hct MCV MCH MCHC RDW Plt Count Lymph % (Auto) [place] % (Auto) Eos % (Auto) Lymph # [place] # Eos # Seg Neutrophils % Monocytes % (Manual) Monocytes # (Manual) D-Dimer ABG pH ABG pO2 ABG HCO3 ABG O2 Saturation ABG Base Excess ABG Hemoglobin Oxyhemoglobin Sodium Potassium Chloride Carbon Dioxide BUN Creatinine Glucose 498 H POC Glucose 371 H 452 H Lactic Acid Calcium Magnesium AST ALT Lactate Dehydrogenase Total Creatine Kinase C-Reactive Protein Total Protein Albumin Urine WBC (Auto) Urine Total Protein Digoxin Salicylates Acetaminophen 12/31/19 12/31/19 12/31/19 04:31 05:42 08:01 WBC RBC Hgb Hct MCV MCH MCHC RDW Plt Count Lymph % (Auto) [place] % (Auto) Eos % (Auto) Lymph # [place] # Eos # Seg Neutrophils % Monocytes % (Manual) Monocytes # (Manual) D-Dimer ABG pH 7.251 L ABG pO2 62.4 L ABG HCO3 31.1 H ABG O2 Saturation 88.7 L ABG Base Excess ABG Hemoglobin 8.7 L Oxyhemoglobin 86.4 L Sodium Potassium Chloride Carbon Dioxide BUN Creatinine Glucose POC Glucose 443 H 443 H Lactic Acid Calcium Magnesium AST ALT Lactate Dehydrogenase Total Creatine Kinase C-Reactive Protein Total Protein Albumin Urine WBC (Auto) Urine Total Protein Digoxin Salicylates Acetaminophen 12/31/19 12/31/19 12/31/19 09:08 10:00 11:50 WBC RBC Hgb Hct MCV MCH MCHC RDW Plt Count Lymph % (Auto) [place] % (Auto) Eos % (Auto) Lymph # [place] # Eos # Seg Neutrophils % Monocytes % (Manual) Monocytes # (Manual) D-Dimer ABG pH 7.325 L ABG pO2 97.2 H ABG HCO3 30.1 H ABG O2 Saturation ABG Base Excess 3.4 H ABG Hemoglobin 8.3 L Oxyhemoglobin 94.7 L Sodium 151 H D Potassium 3.2 L Chloride 113.0 H Carbon Dioxide BUN 23 H Creatinine 1.8 H Glucose 373 H POC Glucose 465 H Lactic Acid Calcium Magnesium AST ALT Lactate Dehydrogenase Total Creatine Kinase C-Reactive Protein Total Protein Albumin Urine WBC (Auto) Urine Total Protein Digoxin Salicylates Acetaminophen 12/31/19 12/31/19 12/31/19 12:25 13:33 18:30 WBC RBC Hgb Hct MCV MCH MCHC RDW Plt Count Lymph % (Auto) [place] % (Auto) Eos % (Auto) Lymph # [place] # Eos # Seg Neutrophils % Monocytes % (Manual) Monocytes # (Manual) D-Dimer ABG pH ABG pO2 ABG HCO3 ABG O2 Saturation ABG Base Excess ABG Hemoglobin Oxyhemoglobin Sodium Potassium Chloride Carbon Dioxide BUN Creatinine Glucose POC Glucose 379 H 311 H 349 H Lactic Acid Calcium Magnesium AST ALT Lactate Dehydrogenase Total Creatine Kinase C-Reactive Protein Total Protein Albumin Urine WBC (Auto) Urine Total Protein Digoxin Salicylates Acetaminophen 12/31/19 12/31/19 01/01/20 22:29 23:30 02:58 WBC RBC Hgb Hct MCV MCH MCHC RDW Plt Count Lymph % (Auto) [place] % (Auto) Eos % (Auto) Lymph # [place] # Eos # Seg Neutrophils % Monocytes % (Manual) Monocytes # (Manual) D-Dimer ABG pH ABG pO2 ABG HCO3 ABG O2 Saturation ABG Base Excess ABG Hemoglobin Oxyhemoglobin Sodium Potassium Chloride Carbon Dioxide BUN Creatinine Glucose POC Glucose 256 H 266 H 248 H Lactic Acid Calcium Magnesium AST ALT Lactate Dehydrogenase Total Creatine Kinase C-Reactive Protein Total Protein Albumin Urine WBC (Auto) Urine Total Protein Digoxin Salicylates Acetaminophen 01/01/20 01/01/20 01/01/20 04:19 06:56 10:52 WBC RBC Hgb Hct MCV MCH MCHC RDW Plt Count Lymph % (Auto) [place] % (Auto) Eos % (Auto) Lymph # [place] # Eos # Seg Neutrophils % Monocytes % (Manual) Monocytes # (Manual) D-Dimer ABG pH ABG pO2 90.7 H ABG HCO3 29.1 H ABG O2 Saturation ABG Base Excess 3.8 H ABG Hemoglobin 8.1 L Oxyhemoglobin 94.5 L Sodium Potassium Chloride Carbon Dioxide BUN Creatinine Glucose POC Glucose 303 H 244 H Lactic Acid Calcium Magnesium AST ALT Lactate Dehydrogenase Total Creatine Kinase C-Reactive Protein Total Protein Albumin Urine WBC (Auto) Urine Total Protein Digoxin Salicylates Acetaminophen 01/01/20 01/01/20 01/01/20 13:39 14:49 18:42 WBC RBC Hgb Hct MCV MCH MCHC RDW Plt Count Lymph % (Auto) [place] % (Auto) Eos % (Auto) Lymph # [place] # Eos # Seg Neutrophils % Monocytes % (Manual) Monocytes # (Manual) D-Dimer ABG pH ABG pO2 ABG HCO3 ABG O2 Saturation ABG Base Excess ABG Hemoglobin Oxyhemoglobin Sodium 147 H Potassium Chloride 107.1 H Carbon Dioxide BUN 28 H Creatinine Glucose 207 H POC Glucose 263 H 188 H Lactic Acid Calcium Magnesium AST ALT Lactate Dehydrogenase Total Creatine Kinase C-Reactive Protein Total Protein Albumin Urine WBC (Auto) Urine Total Protein Digoxin Salicylates Acetaminophen 01/02/20 01/02/20 01/02/20 02:22 03:58 05:00 WBC RBC 3.31 L Hgb 8.0 L Hct 26.9 L MCV 81 L MCH 24 L MCHC 30 L RDW 19.4 H Plt Count Lymph % (Auto) [place] % (Auto) 9.4 H Eos % (Auto) 11.2 H Lymph # [place] # Eos # 0.8 H Seg Neutrophils % Monocytes % (Manual) Monocytes # (Manual) D-Dimer ABG pH ABG pO2 63.0 L ABG HCO3 31.6 H ABG O2 Saturation 91.8 L ABG Base Excess 5.5 H ABG Hemoglobin 8.6 L Oxyhemoglobin 89.6 L Sodium Potassium Chloride Carbon Dioxide BUN Creatinine Glucose POC Glucose 196 H Lactic Acid Calcium Magnesium AST ALT Lactate Dehydrogenase Total Creatine Kinase C-Reactive Protein Total Protein Albumin Urine WBC (Auto) Urine Total Protein Digoxin Salicylates Acetaminophen 01/02/20 01/02/20 01/02/20 05:40 10:26 13:57 WBC RBC Hgb Hct MCV MCH MCHC RDW Plt Count Lymph % (Auto) [place] % (Auto) Eos % (Auto) Lymph # [place] # Eos # Seg Neutrophils % Monocytes % (Manual) Monocytes # (Manual) D-Dimer ABG pH ABG pO2 ABG HCO3 ABG O2 Saturation ABG Base Excess ABG Hemoglobin Oxyhemoglobin Sodium Potassium Chloride Carbon Dioxide BUN Creatinine Glucose POC Glucose 189 H 157 H 178 H Lactic Acid Calcium Magnesium AST ALT Lactate Dehydrogenase Total Creatine Kinase C-Reactive Protein Total Protein Albumin Urine WBC (Auto) Urine Total Protein Digoxin Salicylates Acetaminophen 01/02/20 01/03/20 01/03/20 21:27 03:12 05:26 WBC RBC Hgb Hct MCV MCH MCHC RDW Plt Count Lymph % (Auto) [place] % (Auto) Eos % (Auto) Lymph # [place] # Eos # Seg Neutrophils % Monocytes % (Manual) Monocytes # (Manual) D-Dimer ABG pH 7.473 H ABG pO2 109.6 H ABG HCO3 30.4 H ABG O2 Saturation ABG Base Excess 6.2 H ABG Hemoglobin 9.9 L Oxyhemoglobin Sodium Potassium Chloride Carbon Dioxide BUN Creatinine Glucose POC Glucose 131 H 133 H Lactic Acid Calcium Magnesium AST ALT Lactate Dehydrogenase Total Creatine Kinase C-Reactive Protein Total Protein Albumin Urine WBC (Auto) Urine Total Protein Digoxin Salicylates Acetaminophen 01/03/20 01/03/20 01/03/20 05:40 05:40 15:01 WBC RBC 3.45 L Hgb 8.3 L Hct 27.3 L MCV 79 L MCH 24 L MCHC 30 L RDW 19.3 H Plt Count Lymph % (Auto) [place] % (Auto) Eos % (Auto) Lymph # [place] # Eos # Seg Neutrophils % Monocytes % (Manual) Monocytes # (Manual) D-Dimer ABG pH ABG pO2 ABG HCO3 ABG O2 Saturation ABG Base Excess ABG Hemoglobin Oxyhemoglobin Sodium 151 H Potassium Chloride 111.8 H Carbon Dioxide 31 H BUN 37 H Creatinine 1.8 H Glucose 187 H POC Glucose 164 H Lactic Acid Calcium Magnesium AST ALT Lactate Dehydrogenase Total Creatine Kinase C-Reactive Protein Total Protein Albumin Urine WBC (Auto) Urine Total Protein Digoxin Salicylates Acetaminophen 01/03/20 01/03/20 01/04/20 18:15 22:45 02:11 WBC RBC Hgb Hct MCV MCH MCHC RDW Plt Count Lymph % (Auto) [place] % (Auto) Eos % (Auto) Lymph # [place] # Eos # Seg Neutrophils % Monocytes % (Manual) Monocytes # (Manual) D-Dimer ABG pH ABG pO2 ABG HCO3 ABG O2 Saturation ABG Base Excess ABG Hemoglobin Oxyhemoglobin Sodium Potassium Chloride Carbon Dioxide BUN Creatinine Glucose POC Glucose 184 H 176 H 206 H Lactic Acid Calcium Magnesium AST ALT Lactate Dehydrogenase Total Creatine Kinase C-Reactive Protein Total Protein Albumin Urine WBC (Auto) Urine Total Protein Digoxin Salicylates Acetaminophen 01/04/20 01/04/20 01/04/20 03:16 05:15 10:53 WBC RBC Hgb Hct MCV MCH MCHC RDW Plt Count Lymph % (Auto) [place] % (Auto) Eos % (Auto) Lymph # [place] # Eos # Seg Neutrophils % Monocytes % (Manual) Monocytes # (Manual) D-Dimer ABG pH 7.282 L ABG pO2 73.2 L ABG HCO3 ABG O2 Saturation 94.5 L ABG Base Excess -6.4 L ABG Hemoglobin 10.9 L Oxyhemoglobin 92.1 L Sodium Potassium Chloride Carbon Dioxide BUN Creatinine Glucose POC Glucose 139 H 224 H Lactic Acid Calcium Magnesium AST ALT Lactate Dehydrogenase Total Creatine Kinase C-Reactive Protein Total Protein Albumin Urine WBC (Auto) Urine Total Protein Digoxin Salicylates Acetaminophen 01/04/20 01/04/20 01/04/20 15:47 18:05 22:07 WBC RBC Hgb Hct MCV MCH MCHC RDW Plt Count Lymph % (Auto) [place] % (Auto) Eos % (Auto) Lymph # [place] # Eos # Seg Neutrophils % Monocytes % (Manual) Monocytes # (Manual) D-Dimer ABG pH ABG pO2 ABG HCO3 ABG O2 Saturation ABG Base Excess ABG Hemoglobin Oxyhemoglobin Sodium Potassium Chloride Carbon Dioxide BUN Creatinine Glucose POC Glucose 135 H 117 H 108 H Lactic Acid Calcium Magnesium AST ALT Lactate Dehydrogenase Total Creatine Kinase C-Reactive Protein Total Protein Albumin Urine WBC (Auto) Urine Total Protein Digoxin Salicylates Acetaminophen 01/04/20 01/04/20 01/05/20 Unknown Unknown 02:04 WBC RBC 3.46 L Hgb 8.2 L Hct 27.8 L MCV 80 L MCH 24 L MCHC 30 L RDW 19.7 H Plt Count Lymph % (Auto) [place] % (Auto) Eos % (Auto) Lymph # [place] # Eos # Seg Neutrophils % Monocytes % (Manual) Monocytes # (Manual) D-Dimer ABG pH ABG pO2 ABG HCO3 ABG O2 Saturation ABG Base Excess ABG Hemoglobin Oxyhemoglobin Sodium 150 H Potassium Chloride 110 H Carbon Dioxide 32 H BUN 32 H Creatinine Glucose 309 H POC Glucose 140 H Lactic Acid Calcium Magnesium AST ALT Lactate Dehydrogenase Total Creatine Kinase C-Reactive Protein Total Protein Albumin Urine WBC (Auto) Urine Total Protein Digoxin Salicylates Acetaminophen 01/05/20 01/05/20 01/05/20 03:31 03:36 03:36 WBC RBC 3.46 L Hgb 8.4 L Hct 26.9 L MCV 78 L MCH 24 L MCHC 31 L RDW 19.0 H Plt Count Lymph % (Auto) [place] % (Auto) Eos % (Auto) Lymph # [place] # Eos # Seg Neutrophils % Monocytes % (Manual) Monocytes # (Manual) D-Dimer ABG pH 7.454 H ABG pO2 113.0 H ABG HCO3 30.5 H ABG O2 Saturation ABG Base Excess 6.0 H ABG Hemoglobin 8.5 L Oxyhemoglobin Sodium 150 H Potassium Chloride 110.3 H Carbon Dioxide BUN 30 H Creatinine Glucose 148 H POC Glucose Lactic Acid Calcium Magnesium AST ALT Lactate Dehydrogenase Total Creatine Kinase C-Reactive Protein Total Protein Albumin Urine WBC (Auto) Urine Total Protein Digoxin Salicylates Acetaminophen 01/05/20 01/05/20 01/05/20 05:21 09:56 11:45 WBC RBC Hgb Hct MCV MCH MCHC RDW Plt Count Lymph % (Auto) [place] % (Auto) Eos % (Auto) Lymph # [place] # Eos # Seg Neutrophils % Monocytes % (Manual) Monocytes # (Manual) D-Dimer ABG pH ABG pO2 ABG HCO3 ABG O2 Saturation ABG Base Excess ABG Hemoglobin Oxyhemoglobin Sodium Potassium Chloride Carbon Dioxide BUN Creatinine Glucose POC Glucose 142 H 129 H 174 H Lactic Acid Calcium Magnesium AST ALT Lactate Dehydrogenase Total Creatine Kinase C-Reactive Protein Total Protein Albumin Urine WBC (Auto) Urine Total Protein Digoxin Salicylates Acetaminophen 01/05/20 01/05/20 01/05/20 13:30 14:00 17:41 WBC RBC Hgb Hct MCV MCH MCHC RDW Plt Count Lymph % (Auto) [place] % (Auto) Eos % (Auto) Lymph # [place] # Eos # Seg Neutrophils % Monocytes % (Manual) Monocytes # (Manual) D-Dimer ABG pH ABG pO2 ABG HCO3 ABG O2 Saturation ABG Base Excess ABG Hemoglobin Oxyhemoglobin Sodium Potassium Chloride Carbon Dioxide BUN 26 H Creatinine 1.6 H Glucose 302 H POC Glucose 168 H 136 H Lactic Acid Calcium Magnesium AST ALT Lactate Dehydrogenase Total Creatine Kinase C-Reactive Protein Total Protein Albumin Urine WBC (Auto) Urine Total Protein Digoxin Salicylates Acetaminophen 01/05/20 01/05/20 01/06/20 20:38 23:32 03:50 WBC RBC Hgb Hct MCV MCH MCHC RDW Plt Count Lymph % (Auto) [place] % (Auto) Eos % (Auto) Lymph # [place] # Eos # Seg Neutrophils % Monocytes % (Manual) Monocytes # (Manual) D-Dimer ABG pH ABG pO2 76.2 L ABG HCO3 30.1 H ABG O2 Saturation ABG Base Excess 5.1 H ABG Hemoglobin 9.5 L Oxyhemoglobin 93.8 L Sodium Potassium Chloride Carbon Dioxide BUN Creatinine Glucose POC Glucose 124 H 163 H Lactic Acid Calcium Magnesium AST ALT Lactate Dehydrogenase Total Creatine Kinase C-Reactive Protein Total Protein Albumin Urine WBC (Auto) Urine Total Protein Digoxin Salicylates Acetaminophen 01/06/20 01/06/20 01/06/20 04:09 04:58 04:58 WBC RBC Hgb 8.8 L Hct 28.7 L MCV 78 L MCH 24 L MCHC 31 L RDW 18.7 H Plt Count 522 H Lymph % (Auto) [place] % (Auto) Eos % (Auto) Lymph # [place] # Eos # Seg Neutrophils % Monocytes % (Manual) Monocytes # (Manual) D-Dimer ABG pH ABG pO2 ABG HCO3 ABG O2 Saturation ABG Base Excess ABG Hemoglobin Oxyhemoglobin Sodium 150 H D Potassium Chloride 109.3 H Carbon Dioxide BUN 25 H Creatinine Glucose 55 L POC Glucose 65 L Lactic Acid Calcium Magnesium AST ALT Lactate Dehydrogenase Total Creatine Kinase C-Reactive Protein Total Protein Albumin Urine WBC (Auto) Urine Total Protein Digoxin Salicylates Acetaminophen 01/06/20 01/06/20 01/06/20 05:01 14:10 17:49 WBC RBC Hgb Hct MCV MCH MCHC RDW Plt Count Lymph % (Auto) [place] % (Auto) Eos % (Auto) Lymph # [place] # Eos # Seg Neutrophils % Monocytes % (Manual) Monocytes # (Manual) D-Dimer ABG pH ABG pO2 ABG HCO3 ABG O2 Saturation ABG Base Excess ABG Hemoglobin Oxyhemoglobin Sodium Potassium Chloride Carbon Dioxide BUN Creatinine Glucose POC Glucose 60 L 119 H 131 H Lactic Acid Calcium Magnesium AST ALT Lactate Dehydrogenase Total Creatine Kinase C-Reactive Protein Total Protein Albumin Urine WBC (Auto) Urine Total Protein Digoxin Salicylates Acetaminophen 01/06/20 01/07/20 01/07/20 21:08 02:11 05:19 WBC RBC Hgb Hct MCV MCH MCHC RDW Plt Count Lymph % (Auto) [place] % (Auto) Eos % (Auto) Lymph # [place] # Eos # Seg Neutrophils % Monocytes % (Manual) Monocytes # (Manual) D-Dimer ABG pH ABG pO2 ABG HCO3 ABG O2 Saturation ABG Base Excess ABG Hemoglobin Oxyhemoglobin Sodium Potassium Chloride Carbon Dioxide BUN Creatinine Glucose POC Glucose 136 H 209 H 182 H Lactic Acid Calcium Magnesium AST ALT Lactate Dehydrogenase Total Creatine Kinase C-Reactive Protein Total Protein Albumin Urine WBC (Auto) Urine Total Protein Digoxin Salicylates Acetaminophen 01/07/20 01/07/20 01/07/20 11:40 11:52 13:49 WBC RBC Hgb Hct MCV MCH MCHC RDW Plt Count Lymph % (Auto) [place] % (Auto) Eos % (Auto) Lymph # [place] # Eos # Seg Neutrophils % Monocytes % (Manual) Monocytes # (Manual) D-Dimer ABG pH ABG pO2 ABG HCO3 ABG O2 Saturation ABG Base Excess ABG Hemoglobin Oxyhemoglobin Sodium Potassium Chloride Carbon Dioxide BUN 21 H Creatinine Glucose 190 H POC Glucose 180 H 184 H Lactic Acid Calcium Magnesium AST ALT Lactate Dehydrogenase Total Creatine Kinase C-Reactive Protein Total Protein Albumin Urine WBC (Auto) Urine Total Protein Digoxin Salicylates Acetaminophen 01/07/20 01/07/20 01/07/20 17:54 22:19 Unknown WBC RBC Hgb Hct MCV MCH MCHC RDW Plt Count Lymph % (Auto) [place] % (Auto) Eos % (Auto) Lymph # [place] # Eos # Seg Neutrophils % Monocytes % (Manual) Monocytes # (Manual) D-Dimer ABG pH ABG pO2 ABG HCO3 28.9 H ABG O2 Saturation ABG Base Excess 4.0 H ABG Hemoglobin 11.0 L Oxyhemoglobin 94.2 L Sodium Potassium Chloride Carbon Dioxide BUN Creatinine Glucose POC Glucose 190 H 299 H Lactic Acid Calcium Magnesium AST ALT Lactate Dehydrogenase Total Creatine Kinase C-Reactive Protein Total Protein Albumin Urine WBC (Auto) Urine Total Protein Digoxin Salicylates Acetaminophen 01/08/20 01/08/20 01/08/20 02:45 05:26 05:27 WBC RBC Hgb Hct MCV MCH MCHC RDW Plt Count Lymph % (Auto) [place] % (Auto) Eos % (Auto) Lymph # [place] # Eos # Seg Neutrophils % Monocytes % (Manual) Monocytes # (Manual) D-Dimer ABG pH ABG pO2 67.8 L ABG HCO3 26.5 H ABG O2 Saturation 93.2 L ABG Base Excess ABG Hemoglobin 8.1 L Oxyhemoglobin 90.4 L Sodium Potassium Chloride Carbon Dioxide BUN Creatinine Glucose POC Glucose 245 H 346 H Lactic Acid Calcium Magnesium AST ALT Lactate Dehydrogenase Total Creatine Kinase C-Reactive Protein Total Protein Albumin Urine WBC (Auto) Urine Total Protein Digoxin Salicylates Acetaminophen 01/08/20 01/08/20 01/08/20 08:03 08:03 10:33 WBC RBC 3.14 L Hgb 7.6 L Hct 24.3 L MCV 77 L MCH 24 L MCHC 31 L RDW 18.3 H Plt Count 509 H Lymph % (Auto) [place] % (Auto) Eos % (Auto) Lymph # [place] # Eos # Seg Neutrophils % Monocytes % (Manual) Monocytes # (Manual) D-Dimer ABG pH ABG pO2 ABG HCO3 ABG O2 Saturation ABG Base Excess ABG Hemoglobin Oxyhemoglobin Sodium 132 L D Potassium Chloride 94.7 L Carbon Dioxide BUN 22 H Creatinine Glucose 284 H POC Glucose 275 H Lactic Acid Calcium Magnesium AST ALT Lactate Dehydrogenase Total Creatine Kinase C-Reactive Protein Total Protein Albumin Urine WBC (Auto) Urine Total Protein Digoxin Salicylates Acetaminophen 01/08/20 01/08/20 01/08/20 13:34 17:24 21:49 WBC RBC Hgb Hct MCV MCH MCHC RDW Plt Count Lymph % (Auto) [place] % (Auto) Eos % (Auto) Lymph # [place] # Eos # Seg Neutrophils % Monocytes % (Manual) Monocytes # (Manual) D-Dimer ABG pH ABG pO2 ABG HCO3 ABG O2 Saturation ABG Base Excess ABG Hemoglobin Oxyhemoglobin Sodium Potassium Chloride Carbon Dioxide BUN Creatinine Glucose POC Glucose 273 H 294 H 265 H Lactic Acid Calcium Magnesium AST ALT Lactate Dehydrogenase Total Creatine Kinase C-Reactive Protein Total Protein Albumin Urine WBC (Auto) Urine Total Protein Digoxin Salicylates Acetaminophen 01/09/20 01/09/20 01/09/20 00:13 03:45 05:55 WBC RBC Hgb Hct MCV MCH MCHC RDW Plt Count Lymph % (Auto) [place] % (Auto) Eos % (Auto) Lymph # [place] # Eos # Seg Neutrophils % Monocytes % (Manual) Monocytes # (Manual) D-Dimer ABG pH ABG pO2 ABG HCO3 ABG O2 Saturation ABG Base Excess ABG Hemoglobin Oxyhemoglobin Sodium Potassium Chloride Carbon Dioxide BUN Creatinine Glucose POC Glucose 251 H 346 H 300 H Lactic Acid Calcium Magnesium AST ALT Lactate Dehydrogenase Total Creatine Kinase C-Reactive Protein Total Protein Albumin Urine WBC (Auto) Urine Total Protein Digoxin Salicylates Acetaminophen 01/09/20 01/09/20 01/09/20 08:15 09:31 12:04 WBC RBC Hgb Hct MCV MCH MCHC RDW Plt Count Lymph % (Auto) [place] % (Auto) Eos % (Auto) Lymph # [place] # Eos # Seg Neutrophils % Monocytes % (Manual) Monocytes # (Manual) D-Dimer ABG pH ABG pO2 ABG HCO3 ABG O2 Saturation ABG Base Excess ABG Hemoglobin Oxyhemoglobin Sodium 134 L Potassium Chloride 97.6 L Carbon Dioxide BUN 25 H Creatinine Glucose 240 H POC Glucose 191 H 230 H Lactic Acid Calcium Magnesium AST ALT Lactate Dehydrogenase Total Creatine Kinase C-Reactive Protein Total Protein Albumin Urine WBC (Auto) Urine Total Protein Digoxin Salicylates Acetaminophen 01/09/20 01/09/20 01/09/20 13:46 17:31 22:28 WBC RBC Hgb Hct MCV MCH MCHC RDW Plt Count Lymph % (Auto) [place] % (Auto) Eos % (Auto) Lymph # [place] # Eos # Seg Neutrophils % Monocytes % (Manual) Monocytes # (Manual) D-Dimer ABG pH ABG pO2 ABG HCO3 ABG O2 Saturation ABG Base Excess ABG Hemoglobin Oxyhemoglobin Sodium Potassium Chloride Carbon Dioxide BUN Creatinine Glucose POC Glucose 211 H 260 H 223 H Lactic Acid Calcium Magnesium AST ALT Lactate Dehydrogenase Total Creatine Kinase C-Reactive Protein Total Protein Albumin Urine WBC (Auto) Urine Total Protein Digoxin Salicylates Acetaminophen 01/10/20 01/10/20 01/10/20 02:16 04:20 05:55 WBC RBC Hgb Hct MCV MCH MCHC RDW Plt Count Lymph % (Auto) [place] % (Auto) Eos % (Auto) Lymph # [place] # Eos # Seg Neutrophils % Monocytes % (Manual) Monocytes # (Manual) D-Dimer ABG pH ABG pO2 95.3 H ABG HCO3 27.8 H ABG O2 Saturation ABG Base Excess ABG Hemoglobin 8.3 L Oxyhemoglobin Sodium Potassium Chloride Carbon Dioxide BUN Creatinine Glucose POC Glucose 219 H 245 H Lactic Acid Calcium Magnesium AST ALT Lactate Dehydrogenase Total Creatine Kinase C-Reactive Protein Total Protein Albumin Urine WBC (Auto) Urine Total Protein Digoxin Salicylates Acetaminophen 01/10/20 01/10/20 01/10/20 10:38 15:08 15:45 WBC RBC Hgb Hct MCV MCH MCHC RDW Plt Count Lymph % (Auto) [place] % (Auto) Eos % (Auto) Lymph # [place] # Eos # Seg Neutrophils % Monocytes % (Manual) Monocytes # (Manual) D-Dimer ABG pH ABG pO2 ABG HCO3 ABG O2 Saturation ABG Base Excess ABG Hemoglobin Oxyhemoglobin Sodium Potassium Chloride Carbon Dioxide BUN Creatinine Glucose POC Glucose 268 H 246 H 238 H Lactic Acid Calcium Magnesium AST ALT Lactate Dehydrogenase Total Creatine Kinase C-Reactive Protein Total Protein Albumin Urine WBC (Auto) Urine Total Protein Digoxin Salicylates Acetaminophen 01/10/20 01/10/20 01/10/20 18:00 21:09 22:48 WBC RBC Hgb Hct MCV MCH MCHC RDW Plt Count Lymph % (Auto) [place] % (Auto) Eos % (Auto) Lymph # [place] # Eos # Seg Neutrophils % Monocytes % (Manual) Monocytes # (Manual) D-Dimer ABG pH ABG pO2 ABG HCO3 ABG O2 Saturation ABG Base Excess ABG Hemoglobin Oxyhemoglobin Sodium Potassium Chloride Carbon Dioxide BUN Creatinine Glucose POC Glucose 187 H 176 H 189 H Lactic Acid Calcium Magnesium AST ALT Lactate Dehydrogenase Total Creatine Kinase C-Reactive Protein Total Protein Albumin Urine WBC (Auto) Urine Total Protein Digoxin Salicylates Acetaminophen 01/11/20 01/11/20 01/11/20 03:07 05:45 05:45 WBC RBC 3.15 L Hgb 7.7 L Hct 24.9 L MCV 79 L MCH 24 L MCHC 31 L RDW 18.7 H Plt Count 667 H Lymph % (Auto) [place] % (Auto) Eos % (Auto) Lymph # [place] # Eos # Seg Neutrophils % Monocytes % (Manual) Monocytes # (Manual) D-Dimer ABG pH ABG pO2 ABG HCO3 ABG O2 Saturation ABG Base Excess ABG Hemoglobin Oxyhemoglobin Sodium 148 H D Potassium 5.1 H Chloride 111.9 H Carbon Dioxide BUN 26 H Creatinine Glucose 236 H POC Glucose 253 H Lactic Acid Calcium Magnesium AST 67 H ALT Lactate Dehydrogenase Total Creatine Kinase C-Reactive Protein Total Protein 5.9 L Albumin 2.8 L Urine WBC (Auto) Urine Total Protein Digoxin Salicylates Acetaminophen 01/11/20 06:10 WBC RBC Hgb Hct MCV MCH MCHC RDW Plt Count Lymph % (Auto) [place] % (Auto) Eos % (Auto) Lymph # [place] # Eos # Seg Neutrophils % Monocytes % (Manual) Monocytes # (Manual) D-Dimer ABG pH ABG pO2 ABG HCO3 ABG O2 Saturation ABG Base Excess ABG Hemoglobin Oxyhemoglobin Sodium Potassium Chloride Carbon Dioxide BUN Creatinine Glucose POC Glucose 261 H Lactic Acid Calcium Magnesium AST ALT Lactate Dehydrogenase Total Creatine Kinase C-Reactive Protein Total Protein Albumin Urine WBC (Auto) Urine Total Protein Digoxin Salicylates Acetaminophen Allied health notes reviewed: nursing
--- NOTE | 2020-01-11 12:46 | Progress Note ---
Assessment and Plan Assessment and plan: /Septic Shock /Sinus bradycardia /HypERnatremia / Acute hypoxic respiratory failure Likely from bilateral pneumonia and diastolic heart failure Patient intubated, placed on ventilatory support. critical care team consulted in ED. Patient is extubated, continue nebulizer breathing treatment and as needed biPAP We will also do a swallow eval / Sepsis with shock cont IV antibiotic therapy, IV fluid resuscitation therapy, monitor urine output every shift, maintain mean arterial blood pressure greater than or equal to 65, s/p IV pressor support. / Suspected 2019-nCoV infection -ruled out with 2 negative test / Diastolic CHF Preserved EF based on prior echocardiogram Monitor weight strict I's/O, daily weight, monitor urine output every shift, submental oxygen, blood pressure control. /JAGDEEP, due to vasomotor nephropathy, present on admission -Creatinine improving, -Likely due to severe sepsis and hypotension /hypernatremia, -due to dehydration and sepsis -change fluid to D5W - monitor BMP /Hypokalemia, replete / Diabetes type II Initiate tube feeding diet Sliding scale insulin, Accu-Chek, hypoglycemia protocol. / Hypothyroidism Synthroid therapy, supportive care. / Bilateral pneumonia Pneumonia protocol: IV antibiotic therapy with rocephin for total 7 days, pulse oximetry, /Cervical lymphadenopathy -Reactive versus infectious process versus malignancy -Need repeat scanning and further staging when medically more stable -Pulmonology and ID following /Ileus: Hold tube feeds / HTN (hypertension) -hold BP meds as patient is hypotensive Monitor blood pressure every shift, continue medical management. /History of obstructive sleep apnea -Patient currently on mechanical ventilation /Acute metabolic encephalopathy Secondary to hyponatremia. /Urinary retention, suspected in the ER -Patient having good urine output now, will hold any CT scan -Continue IV fluid / DVT prophylaxis SCD to bilateral lower extremities while in bed, prophylactic heparin 12/19/19: Negative for COVID-19, continue pressor and wean off as tolerated, continue IV antibiotic and follow cultures. 12/19: Weaned off from pressor, sodium 156>157>153 today, creatinine 1.4>1.2>1.0. Continue IV fluid. Wean off from vent as tolerated. Follow ID recommendation 12/20: Extubated today, continue to monitor in the ICU overnight if clinically stable with transfer out to [facility]/telemetry tomorrow a.m.. Sodium 149 today, continue IV fluid and monitor BMP. Swallow eval, PT OT eval. 2nd text for covid is negative 12/21: transfer to [facility], start on gentle hydration. mechanical soft diet 12/22: placed back on bipap, Na 163 - start on D5W, monitor bmp 12/23: spoke to sister, updated [id number], also discussed Pulmonary, will likely need LTAC. Obtain Nephrology due to persistent Hypernatremia. Will start on free water and continue to monitor. Remains of restriants for safety due to intermittent confusion. 12/24: Still with intermittent encephalopathy. Requiring restraints. Hyperna tremia still persist continue hypotonic solution. Nephrology consulted. Free water started this morning will increase dose. Replace potassium as hypokalemia still persist 12/26/19: Clinically improving, BIPAP now PRN AND HS, Na improving, continue renal follow up. I have called [facility] in case they would like to transfer the patient tested previously requested. 12/26: Hypernatermia still persist, had pulled out NGT yesterday, Continue free water, Continue Bipap, Mcdermott states he is not yet stable for transfer. Although from our critical care team this patient has been cleared for to be able to transfer. 12/27: Patient reintubated due to hypoxia. Continue current management as outlined by gastroenterology physician. Sodium is improving. Continue current management monitor ABG and intermittent chest x-ray. [facility] group updated. Patient sister also updated. 12/28: Sepsis persist. Antibiotics adjusted.-start linezolid 600 mg IV q 12 hour. Will adjust insulin for better management of blood glucose. 12/29: Shock still persist Levophed adjusted upward. [place] advised patient not safe for travel at this time. Continue ventilatory support continue full support antibiotics adjusted by ID. Follow cultures 12/30: Still on the vent and pressors , Isolation secondary MRSA In sputum. 12/31: Continue current management, will need intermittent chest xray, adjust insulin For better blood glucose control. Check labs in am 01/01: KUB reviewed shows distended bowel with no no specific obstruction noted. We will hold tube feeds at this time place NG tube to low intermittent suction. Repeat chest x-ray in a.m. Hyponatremia is better kidney function appears to be improving continue to monitor. 01/02: Continue feeding tube to low intermittent suction over 500 residual came out in the last 16+ hours. Repeat blood culture per ID. Continue antibiotics. We will obtain the CT abdomen and pelvis without contrast as renal function is mildly increased today. Prognosis is guarded repeat imaging concerning for colon distention. Will defer to critical care if the fecal management system should be placed. 01/03: CT A/P and chest. IMPRESSION: 1. Predominantly dependent bilateral consolidative and groundglass changes throughout both lungs have worsened since the prior. There is a new small left pleural effusion as well. These findings could be seen in the setting of pulmonary edema with associated superimposed infectious process. There is no cardiomegaly. 2. Left cervical/supraclavicular adenopathy appears slightly increased. This is nonspecific. However, there are shoddy nodes throughout the retroperitoneum and within the pelvis, and the spleen is mildly enlarged. Taken together, these findings are concerning for lymphoproliferative process such as lymphoma. - Ultrasound guided Biopsy, also send peripheral smear. US guided biopsy ordered - add a second pressors 01/04: Awaiting biopsy, continue supportive care, Sodium stable and improving. Patient undergoing bronchoscopy today. 01/05: Continue supportive care, monitor sodium level, wean pressors as tolerated, Radiology unable to perform biopsy of Lymphnode while patient is on the vent per Radiology team. Mcdermott updated of clinical status 01/06: Remains on pressors. Continues with nonoliguric kidney injury. We will give a bolus of fluid as patient is still dry. Hypoglycemia is improving will decrease to D5 from D10 at the same rate. Continue to monitor await cultures and cytology from bronchoscopy. Likely will need trach and PEG. 01/07: Discontinue D5. Patient did receive a bolus of fluid yesterday. Bowel movement noted. Monitor blood sugar close, continue to wean pressors, folllow result from bronchoscopy. start considering Trach and PEG 01/08: Noted hypotensive again this morning requiring reinitiation of pressors. Also was bradycardic received atropine. Keep atropine at bedside cardiology evaluated continue pulmonary supportive care while on ventilator. Renal function is improving. Will give additional bolus of fluid. 01/09: Consult placed to surgery for trach and PEG as patient has failed multiple weaning trials.. Still awaiting biopsy for the adenopathy noted. Again radiology would want the patient off the vent prior to doing biopsy. 01/11/2020. Patient still requiring mechanical ventilation with AC mode rate 14, tidal volume 450, FiO2 45% and PEEP of 8. Patient requiring fentanyl for sedation, wean as tolerated. Patient currently on pressors of dopamine and vasopressin. And currently on stress dose hydrocortisone 100 mg IV every 8 hours. Continue atropine at the bedside for emergent treatment of bradycardia. Cardiology to decide on possible device therapies. The high probability of a clinically significant, sudden or life threatening deterioration of the [renal, respiratory and cardiac] system(s) required my full and direct attention, intervention and personal management. The aggregate critical care time was [32] minutes. This time is in addition to time spent performing reported procedures but includes the following: [x] Data Review and interpretation [x] Patient assessment and monitoring of vital signs [x] Documentation [x] Medication orders and management History Interval history: No new issues overnight. Hospitalist Physical - Constitutional Vitals: Temp Pulse Resp BP Pulse Ox 99.5 F 48 L 16 92/56 96 01/11/20 08:00 01/11/20 12:00 01/11/20 12:00 01/11/20 12:00 01/11/20 12:00 General appearance: Present: severe distress - EENT Eyes: Present: PERRL, EOM intact ENT: hearing intact, clear oral mucosa, dentition normal - Neck Neck: Present: supple, normal ROM - Respiratory Respiratory effort: normal Respiratory: bilateral: CTA - Cardiovascular Rhythm: regular Heart Sounds: Present: S1 & S2. Absent: gallop, rub - Extremities Extremities: no ischemia, No edema, Full ROM - Abdominal General gastrointestinal: soft, non-tender, non-distended, normal bowel sounds - Integumentary Integumentary: Present: clear, warm, dry - Neurologic Neurologic: CNII-XII intact, moves all extremities HEART Score - HEART Score Troponin: Troponin T 0.011 ng/mL (0.00-0.029) 12/18/19 14:45 Results - Labs CBC & Chem 7: 01/11/20 05:45 01/11/20 05:45 Labs: Laboratory Last Values WBC 9.1 K/mm3 (4.5-11.0) 01/11/20 05:45 RBC 3.15 M/mm3 (3.65-5.03) L 01/11/20 05:45 Hgb 7.7 gm/dl (11.8-15.2) L 01/11/20 05:45 Hct 24.9 % (35.5-45.6) L 01/11/20 05:45 MCV 79 fl (84-94) L 01/11/20 05:45 MCH 24 pg (28-32) L 01/11/20 05:45 MCHC 31 % (32-34) L 01/11/20 05:45 RDW 18.7 % (13.2-15.2) H 01/11/20 05:45 Plt Count 667 K/mm3 (140-440) H 01/11/20 05:45 Lymph % (Auto) 19.9 % (13.4-35.0) 01/02/20 05:00 [place] % (Auto) 9.4 % (0.0-7.3) H 01/02/20 05:00 Eos % (Auto) 11.2 % (0.0-4.3) H 01/02/20 05:00 Baso % (Auto) 0.8 % (0.0-1.8) 01/02/20 05:00 Lymph # 1.4 K/mm3 (1.2-5.4) 01/02/20 05:00 [place] # 0.7 K/mm3 (0.0-0.8) 01/02/20 05:00 Eos # 0.8 K/mm3 (0.0-0.4) H 01/02/20 05:00 Baso # 0.1 K/mm3 (0.0-0.1) 01/02/20 05:00 Add Manual Diff Complete 12/24/19 04:53 Total Counted 100 12/24/19 04:53 Seg Neutrophils % 58.7 % (40.0-70.0) 01/02/20 05:00 Seg Neuts % (Manual) 60.0 % (40.0-70.0) 12/24/19 04:53 Band Neutrophils % 0 % 12/24/19 04:53 Lymphocytes % (Manual) 20.0 % (13.4-35.0) 12/24/19 04:53 Reactive Lymphs % (Man) 0 % 12/24/19 04:53 Monocytes % (Manual) 15.0 % (0.0-7.3) H 12/24/19 04:53 Eosinophils % (Manual) 4.0 % (0.0-4.3) 12/24/19 04:53 Basophils % (Manual) 0 % (0.0-1.8) 12/24/19 04:53 Metamyelocytes % 1.0 % 12/24/19 04:53 Myelocytes % 0 % 12/24/19 04:53 Promyelocytes % 0 % 12/24/19 04:53 Blast Cells % 0 % 12/24/19 04:53 Nucleated RBC % Not Reportable 12/24/19 04:53 Seg Neutrophils # 4.0 K/mm3 (1.8-7.7) 01/02/20 05:00 Seg Neutrophils # Man 3.5 K/mm3 (1.8-7.7) 12/24/19 04:53 Band Neutrophils # 0.0 K/mm3 12/24/19 04:53 Lymphocytes # (Manual) 1.2 K/mm3 (1.2-5.4) 12/24/19 04:53 Abs React Lymphs (Man) 0.0 K/mm3 12/24/19 04:53 Monocytes # (Manual) 0.9 K/mm3 (0.0-0.8) H 12/24/19 04:53 Eosinophils # (Manual) 0.2 K/mm3 (0.0-0.4) 12/24/19 04:53 Basophils # (Manual) 0.0 K/mm3 (0.0-0.1) 12/24/19 04:53 Metamyelocytes # 0.1 K/mm3 12/24/19 04:53 Myelocytes # 0.0 K/mm3 12/24/19 04:53 Promyelocytes # 0.0 K/mm3 12/24/19 04:53 Blast Cells # 0.0 K/mm3 12/24/19 04:53 WBC Morphology Not Reportable 12/24/19 04:53 Hypersegmented Neuts Not Reportable 12/24/19 04:53 Hyposegmented Neuts Not Reportable 12/24/19 04:53 Hypogranular Neuts Not Reportable 12/24/19 04:53 Smudge Cells Not Reportable 12/24/19 04:53 Toxic Granulation Not Reportable 12/24/19 04:53 Toxic Vacuolation Not Reportable 12/24/19 04:53 Dohle Bodies Not Reportable 12/24/19 04:53 Pelger-Huet Anomaly Not Reportable 12/24/19 04:53 Mervin Rods Not Reportable 12/24/19 04:53 Platelet Estimate Consistent w auto 12/24/19 04:53 Clumped Platelets Not Reportable 12/24/19 04:53 Plt Clumps, EDTA Not Reportable 12/24/19 04:53 Large Platelets Not Reportable 12/24/19 04:53 Giant Platelets Not Reportable 12/24/19 04:53 Platelet Satelliting Not Reportable 12/24/19 04:53 Plt Morphology Comment Not Reportable 12/24/19 04:53 RBC Morphology Not Reportable 12/24/19 04:53 Dimorphic RBCs Not Reportable 12/24/19 04:53 Polychromasia Rare 12/24/19 04:53 Hypochromasia 1+ 12/24/19 04:53 Poikilocytosis Not Reportable 12/24/19 04:53 Anisocytosis 1+ 12/24/19 04:53 Microcytosis Few 12/24/19 04:53 Macrocytosis Not Reportable 12/24/19 04:53 Spherocytes Not Reportable 12/24/19 04:53 Pappenheimer Bodies Not Reportable 12/24/19 04:53 Sickle Cells Not Reportable 12/24/19 04:53 Target Cells Not Reportable 12/24/19 04:53 Tear Drop Cells Not Reportable 12/24/19 04:53 Ovalocytes Few 12/24/19 04:53 Helmet Cells Not Reportable 12/24/19 04:53 [place] Bodies Not Reportable 12/24/19 04:53 [place] Rings Not Reportable 12/24/19 04:53 Ileana Cells Not Reportable 12/24/19 04:53 Bite Cells Not Reportable 12/24/19 04:53 Crenated Cell Not Reportable 12/24/19 04:53 Elliptocytes Not Reportable 12/24/19 04:53 Acanthocytes (Spur) Not Reportable 12/24/19 04:53 Rouleaux Not Reportable 12/24/19 04:53 Hemoglobin C Crystals Not Reportable 12/24/19 04:53 Schistocytes Not Reportable 12/24/19 04:53 Malaria parasites Not Reportable 12/24/19 04:53 Gianni Bodies Not Reportable 12/24/19 04:53 Hem Pathologist Commnt No 12/24/19 04:53 PT 14.0 Sec. (12.2-14.9) 12/18/19 14:45 INR 1.10 (0.87-1.13) 12/18/19 14:45 APTT 29.4 Sec. (24.2-36.6) 12/18/19 14:45 D-Dimer 534.45 ng/mlDDU (0-234) H 12/18/19 14:45 ABG pH 7.407 pH Units (7.350-7.450) 01/10/20 04:20 ABG pCO2 45.1 mm Hg 01/10/20 04:20 ABG pO2 95.3 mm Hg (80.0-90.0) H 01/10/20 04:20 ABG HCO3 27.8 mmol/L (20.0-26.0) H 01/10/20 04:20 ABG O2 Saturation 97.7 % (95.0-99.0) 01/10/20 04:20 ABG O2 Content 20.6 (0.0-44) 01/10/20 04:20 ABG Base Excess 2.5 mmol/L (-2.0-3.0) 01/10/20 04:20 ABG Hemoglobin 8.3 gm/dl (14.0-18.0) L 01/10/20 04:20 ABG Carboxyhemoglobin 1.6 % (0.0-5.0) 01/10/20 04:20 ABG Methemoglobin 0.5 % (0.0-1.5) 01/10/20 04:20 Oxyhemoglobin 95.6 % (95.0-99.0) 01/10/20 04:20 FiO2 50 % 01/10/20 04:20 Sodium 148 mmol/L (137-145) H D 01/11/20 05:45 Potassium 5.1 mmol/L (3.6-5.0) H 01/11/20 05:45 Chloride 111.9 mmol/L (98-107) H 01/11/20 05:45 Carbon Dioxide 28 mmol/L (22-30) 01/11/20 05:45 Anion Gap 13 mmol/L 01/11/20 05:45 BUN 26 mg/dL (9-20) H 01/11/20 05:45 Creatinine 0.8 mg/dL (0.8-1.5) 01/11/20 05:45 Estimated GFR > 60 ml/min 01/11/20 05:45 BUN/Creatinine Ratio 33 % 01/11/20 05:45 Glucose 236 mg/dL (75-100) H 01/11/20 05:45 POC Glucose 261 (70-105) H 01/11/20 06:10 Lactic Acid 1.70 mmol/L (0.7-2.0) 12/30/19 05:06 Calcium 8.7 mg/dL (8.4-10.2) 01/11/20 05:45 Phosphorus 3.70 mg/dL (2.5-4.5) 12/27/19 03:48 Magnesium 2.60 mg/dL (1.7-2.3) H 12/30/19 05:06 Ferritin 83.4 ng/mL (13.0-400.0) 12/18/19 14:45 Total Bilirubin 0.20 mg/dL (0.1-1.2) 01/11/20 05:45 AST 67 units/L (5-40) H 01/11/20 05:45 ALT 45 units/L (7-56) 01/11/20 05:45 Alkaline Phosphatase 111 units/L (35-129) 01/11/20 05:45 Ammonia 39.0 umol/L (25-60) 12/18/19 14:45 Lactate Dehydrogenase 235 units/L (91-180) H 12/18/19 14:45 Lactate Dehydrogenase 236 units/L (91-180) H 12/18/19 14:45 Total Creatine Kinase 40 units/L (55-170) L 12/18/19 14:45 Troponin T 0.011 ng/mL (0.00-0.029) 12/18/19 14:45 C-Reactive Protein 8.40 mg/dL (0.00-1.30) H 12/18/19 14:45 C-Reactive Protein 8.50 mg/dL (0.00-1.30) H 12/18/19 14:45 Total Protein 5.9 g/dL (6.3-8.2) L 01/11/20 05:45 Albumin 2.8 g/dL (3.9-5) L 01/11/20 05:45 Albumin/Globulin Ratio 0.9 % 01/11/20 05:45 Procalcitonin 0.22 ng/mL (<0.15) 12/18/19 14:45 TSH 2.300 mlU/mL (0.270-4.200) 12/18/19 14:45 Urine Color Yellow (Yellow) 12/19/19 16:50 Urine Turbidity Clear (Clear) 12/19/19 16:50 Urine pH 5.0 (5.0-7.0) 12/19/19 16:50 Ur Specific [place] 1.010 (1.003-1.030) 12/19/19 16:50 Urine Protein <15 mg/dl mg/dL (Negative) 12/19/19 16:50 Urine Glucose (UA) 150 mg/dL (Negative) 12/19/19 16:50 Urine Ketones Neg mg/dL (Negative) 12/19/19 16:50 Urine Blood Neg (Negative) 12/19/19 16:50 Urine Nitrite Neg (Negative) 12/19/19 16:50 Urine Bilirubin Neg (Negative) 12/19/19 16:50 Urine Urobilinogen < 2.0 mg/dL (<2.0) 12/19/19 16:50 Ur Leukocyte Esterase Tr (Negative) 12/19/19 16:50 Urine WBC (Auto) 7.0 /HPF (0.0-6.0) H 12/19/19 16:50 Urine RBC (Auto) 4.0 /HPF (0.0-6.0) 12/19/19 16:50 U Epithel Cells (Auto) 1.0 /HPF (0-13.0) 12/19/19 16:50 Urine Bacteria (Auto) 1+ /HPF (Negative) 12/19/19 16:50 Urine Mucus Few /HPF 12/19/19 16:50 Urine Osmolality 140 Mosm/kg 12/25/19 16:45 Urine Creatinine < 4.2 mg/dL (0.1-20.0) 12/25/19 16:45 Urine Sodium 10 mmol/L 12/25/19 16:45 Urine Total Protein < 4 mg/dL (5-11.8) L 12/25/19 16:45 Digoxin 0.3 ng/mL (0.9-2.0) L 12/18/19 14:45 Salicylates < 0.3 mg/dL (2.8-20.0) L 12/18/19 14:45 Acetaminophen < 5.0 ug/mL (10.0-30.0) L 12/18/19 14:45 Plasma/Serum Alcohol < 0.01 % (0-0.07) 12/18/19 14:45 Coronavirus (PCR) Negative (Negative) 12/21/19 14:45 AFB Identification 01/05/20 09:05 Fungal Id Prelim 01/05/20 09:05 Blood Type A POSITIVE 12/18/19 14:45 Antibody Screen Negative 12/18/19 14:45 - Diagnostic Impressions Diagnostic Impressions: Echocardiogram 12/28/19 14:07 Transthoracic Echocardiogram Indication: SOB BP: 95/51 HR: 99 Conclusions *The left ventricular chamber size is mildly dilated. *There is no left ventricular hypertrophy. *Global left ventricular systolic function is mildly decreased. *The estimated ejection fraction is 45-50%. *Abnormal left ventricular diastolic filling is observed, consistent with impaired relaxation. *The right ventricular global systolic function is mildly reduced. *The right ventricular systolic pressure is calculated at 53 mmHg. Findings Left Ventricle: The left ventricular chamber size is mildly dilated. There is no left ventricular hypertrophy. Global left ventricular systolic function is mildly decreased. The estimated ejection fraction is 45-50%. Abnormal left ventricular diastolic filling is observed, consistent with impaired relaxation. Left Atrium: The left atrial chamber size is normal. Right Ventricle: The right ventricular cavity size is normal. The right ventricular global systolic function is mildly reduced. Right Atrium: The right atrial cavity size is normal. Aortic Valve: The aortic valve leaflets are mildly thickened. There is no evidence of aortic regurgitation. Mitral Valve: The mitral valve leaflets are mildly thickened. There is no evidence of mitral regurgitation. Tricuspid Valve: The tricuspid valve leaflets are normal. There is mild tricuspid regurgitation. The right ventricular systolic pressure is calculated at 53 mmHg. Pulmonic Valve: The pulmonic valve appears normal. There is trace pulmonic regurgitation. Pericardium: There is no pericardial effusion. Aorta: The aorta appears normal. Venous: The inferior vena cava is dilated. Measurements Chambers 2D Name Value Normal Range IVSd (2D) 1.08 cm (0.6 - 1.1) LVPWd (2D) 1 cm (0.6 - 1.1) LVIDd (2D) 4.67 cm (3.7 - 5.6) LVIDs (2D) 3.89 cm (2 - 3.8) LV FS (2D) 16.76 % - EF Teichholz (2D) 35.14 % - Ao root diameter (2D) 2.86 cm (2 - 3.7) Volumes/Mass Name Value Normal Range LA ESV SP 4CH (A/L) 31.8 ml - LA ESV SP 2CH (A/L) 27.37 ml - LA ESV BP (A/L) 33.43 ml - LA ESV BP (A/L) index 14.11 ml/m2 - LA ESV SP 4CH (MOD) 26.83 ml - LA ESV SP 2CH (MOD) 29.59 ml - LA ESV BP (MOD) 30.47 ml - LA ESV BP (MOD) index 12.86 ml/m2 - Diastolic/Systolic Function Name Value Normal Range MV E-wave Vmax 0.39 m/sec - MV deceleration time 115.69 msec - MV A-wave Vmax 0.63 m/sec - MV E:A ratio 0.62 ratio - Aortic Valve Name Value Normal Range AV Vmax 1.14 m/sec - AV VTI 20.1 cm - AV peak gradient 5.17 mmHg - AV mean gradient 3.89 mmHg - LVOT diameter 2.02 cm - LVOT Vmax 0.99 m/sec - LVOT VTI 16.45 cm - LVOT peak gradient 3.95 mmHg - LVOT mean gradient 2.45 mmHg - SV LVOT 52.45 ml - RALPH (continuity Vmax) 2.78 cm2 - RALPH (continuity VTI) 2.61 cm2 - Tricuspid Valve Name Value Normal Range TR Vmax 3.36 m/sec - TR peak gradient 45 mmHg - RAP 8 mmHg - RVSP 53 mmHg - IVC diameter 2.33 cm (1.2 - 2.3) Pulmonic Valve/Qp:Qs Name Value Normal Range PV Vmax 0.89 m/sec - PV peak gradient 3.16 mmHg - NV end-diastolic Vmax 1.42 m/sec - PV acceleration time 79.92 msec - Sykes/IV: Voiding Method Condom Catheter IV Catheter Type [Right Upper PICC Line arm] IV Catheter Type [Right Leg] Intra-osseous IV Catheter Type [Right Wrist] Peripheral IV IV Catheter Type [Right Hand] INT / Saline Lock IV Catheter Type [Left Hand] INT / Saline Lock IV Catheter Type [Left Forearm INT / Saline Lock ] IV Catheter Type [Left Triple Lumen Cath Internal Jugular] Active Medications - Current Medications Current Medications: Generic Name Dose Route Start Last Admin Trade Name Freq PRN Reason Stop Dose Admin Acetaminophen 650 mg 12/29/19 09:21 01/03/20 18:31 Tylenol PO 650 mg Q4H PRN Administration Non Cardiac Pain or Temp>100.5 Albuterol/Ipratropium 1 ampul 12/18/19 14:00 01/11/20 07:38 Duoneb *Not For Prn Use* IH 1 ampul TIDRT SHANEL Administration Lipase/Protease/Amylase 1 each 12/19/19 08:29 Pancreaze 10,500 Unit FEEDTUBE PRN PRN For Clogged Feeding Tube Aspirin 81 mg 12/19/19 10:00 01/10/20 09:05 Baby Aspirin PO 81 mg DAILY SHANEL Administration Atropine Sulfate 1 mg 01/09/20 13:50 01/10/20 18:00 Atropine 0.1% (Cardiac) IV 1 mg PRN PRN Administration Bradycardia Bisacodyl 10 mg 01/02/20 15:48 01/02/20 18:25 Dulcolax NV 10 mg QDAY PRN Administration Constipation Docusate Sodium 100 mg 01/01/20 22:00 01/10/20 22:11 Colace PO 100 mg BID SHANEL Administration Famotidine 20 mg 12/20/19 10:00 01/10/20 22:01 Pepcid PO 20 mg BID SHANEL Administration Fentanyl 50 mcg 12/27/19 16:57 Sublimaze IV Q10MIN PRN ANALGESIA Folic Acid 1 mg 12/19/19 10:00 01/10/20 09:06 Folvite PO 1 mg DAILY SHANEL Administration Heparin Sodium (Porcine) 5,000 unit 12/18/19 22:00 01/10/20 22:11 Heparin SUB-Q 5,000 unit Q12HR SHANEL Administration Hydrocortisone Sodium Succinate 100 mg 01/07/20 14:00 01/11/20 06:41 Solu-Cortef IV 01/12/20 13:59 100 mg Q8HR SHANEL Administration Hydrophilic Ointment 1 applic 12/18/19 12:35 Vaseline Lip Therapy TP Q2HR PRN Dry Lips Fentanyl Citrate 2,000 mcg in 100 mls @ 5.85 mls/hr 12/27/19 17:00 01/11/20 03:56 Fentanyl Drip Premix IV 1 mcg/kg/hr TITR SHANEL 5.85 mls/hr Administration Protocol 1 MCG/KG/HR Norepinephrine 4 mg in 250 mls @ 7.5 mls/hr 12/28/19 15:00 01/09/20 09:02 Levophed Drip 4 Mg/Ns 250 Ml IV 0 mcg/min TITR SHANEL 0 mls/hr Titration Protocol 2 MCG/MIN Vasopressin 20 unit/ Sodium 101 mls @ 9.09 mls/hr 12/30/19 12:30 01/01/20 13:44 Chloride IV 0 units/min TITR SHANEL 0 mls/hr Titration Protocol 0.03 UNITS/MIN Dopamine HCl/Dextrose 800 mg in 250 mls @ 4.388 mls/hr 12/31/19 16:00 01/11/20 03:57 Intropin Drip 800 Mg/D5w 250 Ml IV 2 mcg/kg/min TITR SHANEL 4.388 mls/hr Administration Protocol 2 MCG/KG/MIN Insulin Glargine 15 units 01/10/20 14:00 01/10/20 22:19 Lantus SUB-Q 15 units BID SHANEL Administration Insulin Human Lispro 0 unit 12/31/19 14:00 01/11/20 06:41 Humalog SUB-Q 6 unit Q4HR [facility] Administration Protocol Levothyroxine Sodium 88 mcg 12/19/19 06:00 01/11/20 06:41 Synthroid PO 88 mcg QAM@0600 [facility] Administration Multi-Ingred Cream/Lotion/Oil/Oint 1 applic 12/18/19 12:35 Artificial Tears Ophth Oint OU Q4HR PRN Dry Eye(s) Polyethylene Glycol 17 gm 01/01/20 22:00 01/10/20 22:01 Miralax 3350 PO 17 gm QHS SHANEL Administration Simple Syrup 15 ml 12/19/19 08:29 01/06/20 04:58 Simple Syrup FEEDTUBE 15 ml PRN PRN Administration Hypoglycemia Simple Syrup 30 ml 12/19/19 08:29 Simple Syrup FEEDTUBE PRN PRN Hypoglycemia Sodium Bicarbonate 325 mg 12/19/19 08:29 Sodium Bicarbonate FEEDTUBE PRN PRN For Clogged Feeding Tube Sodium Chloride 10 ml 12/18/19 22:00 01/10/20 22:01 Sodium Chloride Flush Syringe 10 Ml IV 10 ml BID SHANEL Administration Sodium Chloride 10 ml 12/18/19 13:31 Sodium Chloride Flush Syringe 10 Ml IV PRN PRN LINE FLUSH Nutrition/Malnutrition Assess - Dietary Evaluation Nutrition/Malnutrition Findings: Nutrition Notes Start: 12/19/19 08:16 Freq: Status: Active Protocol: Document 01/10/20 13:42 LP (Rec: 01/10/20 14:04 LP [id number]) Nutrition Notes Initial or Follow up Reassessment Current Diagnosis Diabetes,Sepsis,Hypertension, Heart Failure,Respiratory Failure Other Pertinent Diagnosis COVID-19 (-), pneu Current Diet Vital AF 1.2 at 65ml/hr Labs/Tests 01/09/20 Na 134 Pertinent Medications Reviewed Height 6 ft 2 in Weight 117 kg [place] Body Weight (kg) 86.36 BMI 33.1 Weight Status Obese Subjective/Other Information TF was held last night for 200ml residual. 150ml residual this AM and made RN aware only hold when greater than 250ml. Current % PO Negligible Minimum of two criteria No physical signs of malnutrition #1 Nutrition Diagnosis Inadequate oral intake Diagnosis Progress(for reassessment Continues documentation) Is patient on ventilator? Yes Is Patient Ambulatory and/or Out of Bed No REE-([facility]-confined to bed) 2469.960 Kcal/Kg value to use for calculation 17 Approximate Energy Requirements Using 1989 kcal/Kg Calculation Used for Recommendations Kcal/kg Additional Notes Protein: 172g (>/=2g/kg using IBW 86kg) Fluid 1ml/kcal Nutrition Intervention Change Diet Order: TF Nutrition Support: Vital AF 1.2 at 65ml/hr Flush 100ml q4h once resolved Kcal 1,872 Protein (gm) 117 Fluid (mL) 1,265 Goal #1 TF tolerance Goal #2 Meet at least 75% of energy and protein needs Anticipated Discharge Needs: unable to determine at this time Follow-Up By: 01/12/20 Additional Comments Follow for TF tolerance
--- NOTE | 2020-01-11 13:22 | Progress Note ---
Assessment and Plan (1) Bradycardia Current Visit: Yes Status: Acute Plan to address problem: Possibly related to persistently elevated vagal tone versus underlying sinus node disease. Will re-evaluate once current acute systemic illness has improved. Meantime, can continue inotrope therapy as needed and avoid AV estella blocking agents. Further cardiac management including device therapies will depend on clinical course. (2) Cardiomyopathy Current Visit: Yes Status: Acute Plan to address problem: Echocardiogram reviewed, shows a moderate severity dilated cardiomyopathy with estimated ejection fraction 35 to 40%. We will continue conservative supportive cardiac management at this time until hemodynamics support introduction of guideline directed medical therapies. Subjective Date of service: 01/11/20 Principal diagnosis: Ac. Hypoxemic Resp Failure; Septic Shock; Magdiel. PNA; PUI COVID-19; CHF; JOE Interval history: No acute events Objective Vital Signs Temp Pulse Pulse Pulse Resp Resp BP 01/11/20 13:01 43 L 11 L 115/57 01/11/20 12:30 45 L 23 100/58 01/11/20 12:00 98.1 F 48 L 16 92/56 01/11/20 11:32 51 L 102/57 01/11/20 11:30 44 L 14 96/54 01/11/20 11:00 49 L 16 101/57 01/11/20 10:30 50 L 15 101/56 01/11/20 10:00 51 L 17 102/57 01/11/20 09:31 66 14 104/63 01/11/20 09:00 56 L 15 110/58 01/11/20 08:31 55 L 21 121/56 01/11/20 08:20 59 L 131/68 01/11/20 08:01 58 L 27 H 141/70 01/11/20 08:00 99.5 F 56 L 26 H 01/11/20 07:40 56 L 18 01/11/20 07:31 68 16 130/68 01/11/20 07:00 59 L 26 H 131/68 01/11/20 06:30 57 L 22 120/61 01/11/20 06:01 58 L 28 H 122/58 01/11/20 05:31 76 14 108/49 01/11/20 05:01 59 L 20 106/48 01/11/20 05:00 98 F 01/11/20 04:52 67 102/49 01/11/20 04:31 57 L 10 L 110/51 01/11/20 04:00 70 70 17 124/51 01/11/20 03:30 60 17 105/57 01/11/20 03:01 47 L 20 111/54 01/11/20 02:30 49 L 21 103/50 01/11/20 02:00 45 L 3 L 105/47 01/11/20 01:30 47 L 15 97/52 01/11/20 01:00 47 L 19 100/56 01/11/20 00:30 43 L 41 L 10 L 102/57 01/11/20 00:00 95.8 F L 41 L 16 98/49 01/10/20 23:30 41 L 8 L 102/57 01/10/20 23:25 42 L 112/59 01/10/20 23:20 40 L 13 102/57 01/10/20 23:00 44 L 16 99/54 01/10/20 22:30 47 L 9 L 104/56 01/10/20 22:00 41 L 9 L 117/63 01/10/20 21:40 49 L 9 L 01/10/20 21:30 61 18 117/55 01/10/20 21:29 95.9 F L 01/10/20 21:00 44 L 10 L 114/60 01/10/20 20:34 45 L 113/62 01/10/20 20:33 52 L 18 01/10/20 20:30 44 L 8 L 114/63 01/10/20 20:05 49 L 01/10/20 20:00 95.9 F L 49 L 8 L 121/64 01/10/20 19:30 54 L 13 121/65 01/10/20 19:00 59 L 17 127/68 01/10/20 18:30 64 9 L 125/67 01/10/20 18:00 41 L 13 99/51 01/10/20 17:30 48 L 7 L 102/54 01/10/20 17:06 56 L 107/55 01/10/20 17:00 52 L 7 L 115/57 01/10/20 16:30 66 22 127/63 01/10/20 16:00 97.6 F 67 67 18 127/63 01/10/20 15:30 56 L 13 114/44 01/10/20 15:00 48 L 16 115/52 01/10/20 14:30 45 L 19 101/56 01/10/20 14:21 44 L 25 H 01/10/20 14:00 53 L 18 111/57 01/10/20 13:48 48 L 111/57 01/10/20 13:30 46 L 14 120/60 Pulse Ox 01/11/20 13:01 95 01/11/20 12:30 96 01/11/20 12:00 96 01/11/20 11:32 95 01/11/20 11:30 96 01/11/20 11:00 96 01/11/20 10:30 95 01/11/20 10:00 95 01/11/20 09:31 95 01/11/20 09:00 97 01/11/20 08:31 96 01/11/20 08:20 98 01/11/20 08:01 98 01/11/20 08:00 97 01/11/20 07:40 01/11/20 07:31 99 01/11/20 07:00 98 01/11/20 06:30 100 01/11/20 06:01 98 01/11/20 05:31 97 01/11/20 05:01 98 01/11/20 05:00 01/11/20 04:52 97 01/11/20 04:31 99 01/11/20 04:00 95 01/11/20 03:30 97 01/11/20 03:01 100 01/11/20 02:30 98 01/11/20 02:00 95 01/11/20 01:30 98 01/11/20 01:00 97 01/11/20 00:30 96 01/11/20 00:00 96 01/10/20 23:30 97 01/10/20 23:25 97 01/10/20 23:20 98 01/10/20 23:00 98 01/10/20 22:30 100 01/10/20 22:00 97 01/10/20 21:40 98 01/10/20 21:30 94 01/10/20 21:29 01/10/20 21:00 97 01/10/20 20:34 98 01/10/20 20:33 01/10/20 20:30 98 01/10/20 20:05 01/10/20 20:00 98 01/10/20 19:30 97 01/10/20 19:00 98 01/10/20 18:30 98 01/10/20 18:00 98 01/10/20 17:30 97 01/10/20 17:06 97 01/10/20 17:00 97 01/10/20 16:30 97 01/10/20 16:00 92 01/10/20 15:30 85 01/10/20 15:00 95 01/10/20 14:30 93 01/10/20 14:21 01/10/20 14:00 94 01/10/20 13:48 97 01/10/20 13:30 96 - Physical Examination General: Other (intubated on the vent) Neck: Positive: neck supple Cardiac: Positive: Bradycardia Lungs: Positive: Rhonchi Neuro: Positive: Other (Intubated, on the vent) Abdomen: Positive: Soft Skin: Positive: Clear Extremities: Absent: edema - Labs and Meds Cardiac Enzymes 01/11/20 Range/Units 05:45 AST 67 H (5-40) units/L CBC 01/11/20 Range/Units 05:45 WBC 9.1 (4.5-11.0) K/mm3 RBC 3.15 L (3.65-5.03) M/mm3 Hgb 7.7 L (11.8-15.2) gm/dl Hct 24.9 L (35.5-45.6) % Plt Count 667 H (140-440) K/mm3 Comprehensive Metabolic Panel 01/11/20 Range/Units 05:45 Sodium 148 H D (137-145) mmol/L Potassium 5.1 H (3.6-5.0) mmol/L Chloride 111.9 H (98-107) mmol/L Carbon Dioxide 28 (22-30) mmol/L BUN 26 H (9-20) mg/dL Creatinine 0.8 (0.8-1.5) mg/dL Glucose 236 H (75-100) mg/dL Calcium 8.7 (8.4-10.2) mg/dL AST 67 H (5-40) units/L ALT 45 (7-56) units/L Alkaline Phosphatase 111 (35-129) units/L Total Protein 5.9 L (6.3-8.2) g/dL Albumin 2.8 L (3.9-5) g/dL - Allied health notes Allied health notes reviewed: nursing
[2020-01-11] MEDS: FAMOTIDINE 20 MG TAB PO SCH ×2 (13:59→21:55)
[2020-01-11] MEDS: DOCUSATE SODIUM 100 MG/10 ML ORAL LIQD PO SCH ×2 (13:59→21:55)
[2020-01-11] MEDS: FOLIC ACID 1 MG TAB PO SCH (14:01)
[2020-01-11] MEDS: ASPIRIN 81 MG TAB CHEW PO SCH (14:01)
[2020-01-11] MEDS: HEPARIN 5,000 UNIT/1 ML VIAL SUB-Q SCH ×2 (14:02→21:56)
--- NOTE | 2020-01-11 17:22 | Event Note ---
Spoke with patient's sister Mrs. Hansen ([id number]) as well as 2 other sisters and a cousin. I explained again the indication for trach/PEG, risks, benefits, alternatives to the procedures. All questions were answered. Mrs. Hansen stated she will call back tomorrow with a decision.
[2020-01-11] MEDS: POLYETHYLENE GLYCOL 3350 17 GM POWDER PO SCH (21:55)
[2020-01-12] MEDS: fentaNYL DRIP Premix 2,000 MCG/100 ML BAG IV SCH ×2 (01:37→06:25)
[2020-01-12] MEDS: INSULIN LISPRO 100 UNIT/ML SUB-Q SCH ×6 (01:39→23:11)
[2020-01-12] MEDS: HYDROCORTISONE SOD SUCC 100 MG/2 ML VIAL IV SCH (06:26)
[2020-01-12] MEDS: LEVOTHYROXINE 88 MCG TAB PO SCH (06:27)
[2020-01-12] MEDS: IPRATROPIUM/ALBUTEROL SULFATE 3 ML AMPUL.NEB IH SCH ×3 (07:38→21:28)
--- NOTE | 2020-01-12 11:35 | Progress Note ---
Assessment and Plan Sinus bradycardia is uncertain echo: LVEF 45-50% TSH 2.3 A persistently elevated vagal tone or vasodepressor reaction is a possible etiology, versus underlying conduction system disease. Pneumonia negative COVID PCR x 2 Acute Respiratory failure Acute kidney injury -resolved Positive MRSA-sputum Anemia Avoid AV estella blocking agents. Continue telemetry monitoring Atropine to be used as needed for heart rate below 40. Further cardiac management including device therapies will depend on clinical course. Subjective Date of service: 01/12/20 Principal diagnosis: Ac. Hypoxemic Resp Failure; Septic Shock; Magdiel. PNA; PUI COVID-19; CHF; JOE Interval history: Patient is awake but remains intubated on the vent and on low dose dopamine. Marked sinus bradycardia, rate in the 40s on telemetry. Objective Vital Signs Temp Pulse Pulse Pulse Resp Resp BP 01/12/20 10:16 45 L 15 147/60 01/12/20 10:00 43 L 14 154/73 01/12/20 09:45 42 L 16 154/73 01/12/20 09:30 45 L 18 150/77 01/12/20 09:15 43 L 18 150/77 01/12/20 09:00 56 L 22 149/74 01/12/20 08:46 39 L 17 149/74 01/12/20 08:35 42 L 134/68 01/12/20 08:30 38 L 14 165/81 01/12/20 08:16 35 L 14 134/68 01/12/20 08:00 97.9 F 43 L 14 134/68 01/12/20 07:45 39 L 13 118/58 01/12/20 07:39 43 L 20 01/12/20 07:30 41 L 12 116/57 01/12/20 07:15 43 L 15 110/55 01/12/20 07:00 41 L 14 103/51 01/12/20 06:45 43 L 15 102/51 01/12/20 06:30 49 L 15 117/59 01/12/20 06:15 45 L 15 105/51 01/12/20 06:00 45 L 13 109/53 01/12/20 05:45 45 L 14 115/54 01/12/20 05:30 44 L 15 106/49 01/12/20 05:15 44 L 10 L 107/51 07/08/20 05:00 49 L 15 108/54 01/12/20 04:45 48 L 15 107/53 01/12/20 04:30 47 L 15 112/52 01/12/20 04:15 50 L 16 108/54 01/12/20 04:00 97.6 F 49 L 16 126/62 01/12/20 03:45 48 L 16 137/63 01/12/20 03:31 51 L 15 137/63 01/12/20 03:15 51 L 15 136/63 01/12/20 03:00 48 L 12 136/63 01/12/20 02:45 61 17 133/70 01/12/20 02:30 46 L 14 130/61 01/12/20 02:15 44 L 14 143/66 01/12/20 02:00 45 L 16 137/68 01/12/20 01:45 42 L 17 143/66 01/12/20 01:30 45 L 18 143/66 01/12/20 01:15 68 16 133/68 01/12/20 01:13 47 L 01/12/20 01:00 44 L 18 142/68 01/12/20 00:45 43 L 15 138/65 01/12/20 00:30 43 L 13 143/68 01/12/20 00:15 46 L 15 140/65 01/12/20 00:00 97.5 F L 51 L 22 140/65 01/11/20 23:45 84 17 124/63 01/11/20 23:30 50 L 12 124/63 01/11/20 23:15 48 L 14 126/65 01/11/20 23:00 59 L 10 L 126/65 01/11/20 22:45 47 L 11 L 119/56 01/11/20 22:30 51 L 15 119/56 01/11/20 22:25 48 L 19 113/59 01/11/20 22:15 48 L 11 L 127/61 01/11/20 22:05 56 L 118/56 01/11/20 22:00 51 L 11 L 118/58 01/11/20 21:45 127/61 01/11/20 21:30 46 L 25 H 127/61 01/11/20 21:15 49 L 14 95/48 01/11/20 21:01 80 21 95/48 01/11/20 20:45 49 L 14 95/48 01/11/20 20:31 46 L 15 95/48 01/11/20 20:15 44 L 11 L 95/48 01/11/20 20:01 46 L 13 95/48 01/11/20 20:00 97.4 F L 01/11/20 19:45 49 L 12 95/48 01/11/20 19:31 43 L 13 95/48 01/11/20 19:01 44 L 12 95/48 01/11/20 18:30 46 L 13 89/45 01/11/20 18:01 47 L 13 97/45 01/11/20 17:31 52 L 14 103/51 01/11/20 17:01 37 L 16 116/52 01/11/20 16:30 47 L 15 103/56 01/11/20 16:17 56 L 17 113/59 01/11/20 16:01 48 L 17 96/54 01/11/20 16:00 98.1 F 51 L 60 15 113/59 01/11/20 15:30 51 L 13 113/59 01/11/20 15:01 49 L 17 109/49 01/11/20 14:31 48 L 16 118/61 01/11/20 14:00 48 L 24 117/63 01/11/20 13:54 20 01/11/20 13:52 59 L 18 01/11/20 13:31 47 L 23 100/59 01/11/20 13:01 43 L 11 L 115/57 01/11/20 12:30 45 L 23 100/58 01/11/20 12:00 98.1 F 43 L 18 92/56 01/11/20 11:32 51 L 102/57 Pulse Ox 01/12/20 10:16 100 01/12/20 10:00 100 01/12/20 09:45 100 01/12/20 09:30 100 01/12/20 09:15 100 01/12/20 09:00 99 01/12/20 08:46 100 01/12/20 08:35 99 01/12/20 08:30 100 01/12/20 08:16 99 01/12/20 08:00 100 01/12/20 07:45 99 01/12/20 07:39 01/12/20 07:30 100 01/12/20 07:15 100 01/12/20 07:00 100 01/12/20 06:45 99 01/12/20 06:30 100 01/12/20 06:15 99 01/12/20 06:00 99 01/12/20 05:45 99 01/12/20 05:30 99 01/12/20 05:15 99 01/12/20 05:00 99 01/12/20 04:45 99 01/12/20 04:30 99 01/12/20 04:15 100 01/12/20 04:00 100 01/12/20 03:45 100 01/12/20 03:31 100 01/12/20 03:15 99 01/12/20 03:00 100 01/12/20 02:45 99 01/12/20 02:30 99 01/12/20 02:15 100 01/12/20 02:00 100 01/12/20 01:45 100 01/12/20 01:30 100 01/12/20 01:15 100 01/12/20 01:13 01/12/20 01:00 99 01/12/20 00:45 99 01/12/20 00:30 99 01/12/20 00:15 98 01/12/20 00:00 99 01/11/20 23:45 100 01/11/20 23:30 100 01/11/20 23:15 100 01/11/20 23:00 100 01/11/20 22:45 100 01/11/20 22:30 100 01/11/20 22:25 100 01/11/20 22:15 100 01/11/20 22:05 100 01/11/20 22:00 100 01/11/20 21:45 96 01/11/20 21:30 97 01/11/20 21:15 97 01/11/20 21:01 96 01/11/20 20:45 100 01/11/20 20:31 100 01/11/20 20:15 99 01/11/20 20:01 99 01/11/20 20:00 100 01/11/20 19:45 99 01/11/20 19:31 99 01/11/20 19:01 99 01/11/20 18:30 99 01/11/20 18:01 99 01/11/20 17:31 100 01/11/20 17:01 95 01/11/20 16:30 97 01/11/20 16:17 98 01/11/20 16:01 98 01/11/20 16:00 97 01/11/20 15:30 98 01/11/20 15:01 98 01/11/20 14:31 99 01/11/20 14:00 98 01/11/20 13:54 01/11/20 13:52 01/11/20 13:31 98 01/11/20 13:01 95 01/11/20 12:30 96 01/11/20 12:00 97 01/11/20 11:32 95 - Physical Examination General: Other (intubated on the vent) HEENT: Positive: PERRL Cardiac: Positive: Bradycardia - Allied health notes Allied health notes reviewed: nursing
[2020-01-12] MEDS: FAMOTIDINE 20 MG TAB PO SCH ×2 (12:54→23:03)
[2020-01-12] MEDS: DOCUSATE SODIUM 100 MG/10 ML ORAL LIQD PO SCH ×2 (12:54→23:03)
[2020-01-12] MEDS: HEPARIN 5,000 UNIT/1 ML VIAL SUB-Q SCH ×2 (12:55→23:14)
[2020-01-12] MEDS: FOLIC ACID 1 MG TAB PO SCH (12:55)
[2020-01-12] MEDS: ASPIRIN 81 MG TAB CHEW PO SCH (12:55)
[2020-01-12] MEDS: INSULIN GLARGINE 100 UNITS/ML SUB-Q SCH ×2 (13:04→23:03)
--- NOTE | 2020-01-12 13:47 | Progress Note ---
Assessment and Plan Assessment and plan: /Septic Shock /Sinus bradycardia /HypERnatremia / Acute hypoxic respiratory failure Likely from bilateral pneumonia and diastolic heart failure Patient intubated, placed on ventilatory support. critical care team consulted in ED. Patient is extubated, continue nebulizer breathing treatment and as needed biPAP We will also do a swallow eval / Sepsis with shock cont IV antibiotic therapy, IV fluid resuscitation therapy, monitor urine output every shift, maintain mean arterial blood pressure greater than or equal to 65, s/p IV pressor support. / Suspected 2019-nCoV infection -ruled out with 2 negative test / Diastolic CHF Preserved EF based on prior echocardiogram Monitor weight strict I's/O, daily weight, monitor urine output every shift, submental oxygen, blood pressure control. /JAGDEEP, due to vasomotor nephropathy, present on admission -Creatinine improving, -Likely due to severe sepsis and hypotension /hypernatremia, -due to dehydration and sepsis -change fluid to D5W - monitor BMP /Hypokalemia, replete / Diabetes type II Initiate tube feeding diet Sliding scale insulin, Accu-Chek, hypoglycemia protocol. / Hypothyroidism Synthroid therapy, supportive care. / Bilateral pneumonia Pneumonia protocol: IV antibiotic therapy with rocephin for total 7 days, pulse oximetry, /Cervical lymphadenopathy -Reactive versus infectious process versus malignancy -Need repeat scanning and further staging when medically more stable -Pulmonology and ID following /Ileus: Hold tube feeds / HTN (hypertension) -hold BP meds as patient is hypotensive Monitor blood pressure every shift, continue medical management. /History of obstructive sleep apnea -Patient currently on mechanical ventilation /Acute metabolic encephalopathy Secondary to hyponatremia. /Urinary retention, suspected in the ER -Patient having good urine output now, will hold any CT scan -Continue IV fluid / DVT prophylaxis SCD to bilateral lower extremities while in bed, prophylactic heparin 12/19/19: Negative for COVID-19, continue pressor and wean off as tolerated, continue IV antibiotic and follow cultures. 12/19: Weaned off from pressor, sodium 156>157>153 today, creatinine 1.4>1.2>1.0. Continue IV fluid. Wean off from vent as tolerated. Follow ID recommendation 12/20: Extubated today, continue to monitor in the ICU overnight if clinically stable with transfer out to [facility]/telemetry tomorrow a.m.. Sodium 149 today, continue IV fluid and monitor BMP. Swallow eval, PT OT eval. 2nd text for covid is negative 12/21: transfer to [facility], start on gentle hydration. mechanical soft diet 12/22: placed back on bipap, Na 163 - start on D5W, monitor bmp 12/23: spoke to sister, updated [phone], also discussed Pulmonary, will likely need LTAC. Obtain Nephrology due to persistent Hypernatremia. Will start on free water and continue to monitor. Remains of restriants for safety due to intermittent confusion. 12/24: Still with intermittent encephalopathy. Requiring restraints. Hyperna tremia still persist continue hypotonic solution. Nephrology consulted. Free water started this morning will increase dose. Replace potassium as hypokalemia still persist 12/26/19: Clinically improving, BIPAP now PRN AND HS, Na improving, continue renal follow up. I have called [facility] in case they would like to transfer the patient tested previously requested. 12/26: Hypernatermia still persist, had pulled out NGT yesterday, Continue free water, Continue Bipap, Mcdermott states he is not yet stable for transfer. Although from our critical care team this patient has been cleared for to be able to transfer. 12/27: Patient reintubated due to hypoxia. Continue current management as outlined by commodity management specialist. Sodium is improving. Continue current management monitor ABG and intermittent chest x-ray. Mcdermott group updated. Patient sister also updated. 12/28: Sepsis persist. Antibiotics adjusted.-start linezolid 600 mg IV q 12 hour. Will adjust insulin for better management of blood glucose. 12/29: Shock still persist Levophed adjusted upward. [place] advised patient not safe for travel at this time. Continue ventilatory support continue full support antibiotics adjusted by ID. Follow cultures 12/30: Still on the vent and pressors , Isolation secondary MRSA In sputum. 12/31: Continue current management, will need intermittent chest xray, adjust insulin For better blood glucose control. Check labs in am 01/01: KUB reviewed shows distended bowel with no no specific obstruction noted. We will hold tube feeds at this time place NG tube to low intermittent suction. Repeat chest x-ray in a.m. Hyponatremia is better kidney function appears to be improving continue to monitor. 01/02: Continue feeding tube to low intermittent suction over 500 residual came out in the last 16+ hours. Repeat blood culture per ID. Continue antibiotics. We will obtain the CT abdomen and pelvis without contrast as renal function is mildly increased today. Prognosis is guarded repeat imaging concerning for colon distention. Will defer to critical care if the fecal management system should be placed. 01/03: CT A/P and chest. IMPRESSION: 1. Predominantly dependent bilateral consolidative and groundglass changes throughout both lungs have worsened since the prior. There is a new small left pleural effusion as well. These findings could be seen in the setting of pulmonary edema with associated superimposed infectious process. There is no cardiomegaly. 2. Left cervical/supraclavicular adenopathy appears slightly increased. This is nonspecific. However, there are shoddy nodes throughout the retroperitoneum and within the pelvis, and the spleen is mildly enlarged. Taken together, these findings are concerning for lymphoproliferative process such as lymphoma. - Ultrasound guided Biopsy, also send peripheral smear. US guided biopsy ordered - add a second pressors 01/04: Awaiting biopsy, continue supportive care, Sodium stable and improving. Patient undergoing bronchoscopy today. 01/05: Continue supportive care, monitor sodium level, wean pressors as tolerated, Radiology unable to perform biopsy of Lymphnode while patient is on the vent per Radiology team. Mcdermott updated of clinical status 01/06: Remains on pressors. Continues with nonoliguric kidney injury. We will give a bolus of fluid as patient is still dry. Hypoglycemia is improving will decrease to D5 from D10 at the same rate. Continue to monitor await cultures and cytology from bronchoscopy. Likely will need trach and PEG. 01/07: Discontinue D5. Patient did receive a bolus of fluid yesterday. Bowel movement noted. Monitor blood sugar close, continue to wean pressors, folllow result from bronchoscopy. start considering Trach and PEG 01/08: Noted hypotensive again this morning requiring reinitiation of pressors. Also was bradycardic received atropine. Keep atropine at bedside cardiology evaluated continue pulmonary supportive care while on ventilator. Renal function is improving. Will give additional bolus of fluid. 01/09: Consult placed to surgery for trach and PEG as patient has failed multiple weaning trials.. Still awaiting biopsy for the adenopathy noted. Again radiology would want the patient off the vent prior to doing biopsy. 01/11/2020. Patient still requiring mechanical ventilation with AC mode rate 14, tidal volume 450, FiO2 45% and PEEP of 8. Patient requiring fentanyl for sedation, wean as tolerated. Patient currently on pressors of dopamine and vasopressin. And currently on stress dose hydrocortisone 100 mg IV every 8 hours. Continue atropine at the bedside for emergent treatment of bradycardia. Cardiology to decide on possible device therapies. 01/12/2020. Patient still requiring mechanical ventilation with AC mode rate of 14, tidal volume 450, FiO2 50% and PEEP of 8. Continue to wean pressors to maintain MEP greater than 65. Atropine at the bedside for emergent treatment of bradycardia. Continue stress dose hydrocortisone. The high probability of a clinically significant, sudden or life threatening deterioration of the [renal, respiratory and cardiac] system(s) required my full and direct attention, intervention and personal management. The aggregate critical care time was [31] minutes. This time is in addition to time spent pe rforming reported procedures but includes the following: [x] Data Review and interpretation [x] Patient assessment and monitoring of vital signs [x] Documentation [x] Medication orders and management History Interval history: No new issues overnight. Hospitalist Physical - Constitutional Vitals: Temp Pulse Resp BP Pulse Ox 97.9 F 46 L 18 147/60 100 01/12/20 08:00 01/12/20 13:17 01/12/20 13:17 01/12/20 12:00 01/12/20 12:00 General appearance: Present: severe distress - EENT Eyes: Present: PERRL, EOM intact ENT: hearing intact, clear oral mucosa, dentition normal - Neck Neck: Present: supple, normal ROM - Respiratory Respiratory effort: normal Respiratory: bilateral: CTA - Cardiovascular Rhythm: regular Heart Sounds: Present: S1 & S2. Absent: gallop, rub - Extremities Extremities: no ischemia, No edema, Full ROM - Abdominal General gastrointestinal: soft, non-tender, non-distended, normal bowel sounds - Integumentary Integumentary: Present: clear, warm, dry - Neurologic Neurologic: CNII-XII intact, moves all extremities HEART Score - HEART Score Troponin: Troponin T 0.011 ng/mL (0.00-0.029) 12/18/19 14:45 Results - Labs CBC & Chem 7: 01/11/20 05:45 01/11/20 05:45 Labs: Laboratory Last Values WBC 9.1 K/mm3 (4.5-11.0) 01/11/20 05:45 RBC 3.15 M/mm3 (3.65-5.03) L 01/11/20 05:45 Hgb 7.7 gm/dl (11.8-15.2) L 01/11/20 05:45 Hct 24.9 % (35.5-45.6) L 01/11/20 05:45 MCV 79 fl (84-94) L 01/11/20 05:45 MCH 24 pg (28-32) L 01/11/20 05:45 MCHC 31 % (32-34) L 01/11/20 05:45 RDW 18.7 % (13.2-15.2) H 01/11/20 05:45 Plt Count 667 K/mm3 (140-440) H 01/11/20 05:45 Lymph % (Auto) 19.9 % (13.4-35.0) 01/02/20 05:00 [place] % (Auto) 9.4 % (0.0-7.3) H 01/02/20 05:00 Eos % (Auto) 11.2 % (0.0-4.3) H 01/02/20 05:00 Baso % (Auto) 0.8 % (0.0-1.8) 01/02/20 05:00 Lymph # 1.4 K/mm3 (1.2-5.4) 01/02/20 05:00 Radford # 0.7 K/mm3 (0.0-0.8) 01/02/20 05:00 Eos # 0.8 K/mm3 (0.0-0.4) H 01/02/20 05:00 Baso # 0.1 K/mm3 (0.0-0.1) 01/02/20 05:00 Add Manual Diff Complete 12/24/19 04:53 Total Counted 100 12/24/19 04:53 Seg Neutrophils % 58.7 % (40.0-70.0) 01/02/20 05:00 Seg Neuts % (Manual) 60.0 % (40.0-70.0) 12/24/19 04:53 Band Neutrophils % 0 % 12/24/19 04:53 Lymphocytes % (Manual) 20.0 % (13.4-35.0) 12/24/19 04:53 Reactive Lymphs % (Man) 0 % 12/24/19 04:53 Monocytes % (Manual) 15.0 % (0.0-7.3) H 12/24/19 04:53 Eosinophils % (Manual) 4.0 % (0.0-4.3) 12/24/19 04:53 Basophils % (Manual) 0 % (0.0-1.8) 12/24/19 04:53 Metamyelocytes % 1.0 % 12/24/19 04:53 Myelocytes % 0 % 12/24/19 04:53 Promyelocytes % 0 % 12/24/19 04:53 Blast Cells % 0 % 12/24/19 04:53 Nucleated RBC % Not Reportable 12/24/19 04:53 Seg Neutrophils # 4.0 K/mm3 (1.8-7.7) 01/02/20 05:00 Seg Neutrophils # Man 3.5 K/mm3 (1.8-7.7) 12/24/19 04:53 Band Neutrophils # 0.0 K/mm3 12/24/19 04:53 Lymphocytes # (Manual) 1.2 K/mm3 (1.2-5.4) 12/24/19 04:53 Abs React Lymphs (Man) 0.0 K/mm3 12/24/19 04:53 Monocytes # (Manual) 0.9 K/mm3 (0.0-0.8) H 12/24/19 04:53 Eosinophils # (Manual) 0.2 K/mm3 (0.0-0.4) 12/24/19 04:53 Basophils # (Manual) 0.0 K/mm3 (0.0-0.1) 12/24/19 04:53 Metamyelocytes # 0.1 K/mm3 12/24/19 04:53 Myelocytes # 0.0 K/mm3 12/24/19 04:53 Promyelocytes # 0.0 K/mm3 12/24/19 04:53 Blast Cells # 0.0 K/mm3 12/24/19 04:53 WBC Morphology Not Reportable 12/24/19 04:53 Hypersegmented Neuts Not Reportable 12/24/19 04:53 Hyposegmented Neuts Not Reportable 12/24/19 04:53 Hypogranular Neuts Not Reportable 12/24/19 04:53 Smudge Cells Not Reportable 12/24/19 04:53 Toxic Granulation Not Reportable 12/24/19 04:53 Toxic Vacuolation Not Reportable 12/24/19 04:53 Dohle Bodies Not Reportable 12/24/19 04:53 Pelger-Huet Anomaly Not Reportable 12/24/19 04:53 Mervin Rods Not Reportable 12/24/19 04:53 Platelet Estimate Consistent w auto 12/24/19 04:53 Clumped Platelets Not Reportable 12/24/19 04:53 Plt Clumps, EDTA Not Reportable 12/24/19 04:53 Large Platelets Not Reportable 12/24/19 04:53 Giant Platelets Not Reportable 12/24/19 04:53 Platelet Satelliting Not Reportable 12/24/19 04:53 Plt Morphology Comment Not Reportable 12/24/19 04:53 RBC Morphology Not Reportable 12/24/19 04:53 Dimorphic RBCs Not Reportable 12/24/19 04:53 Polychromasia Rare 12/24/19 04:53 Hypochromasia 1+ 12/24/19 04:53 Poikilocytosis Not Reportable 12/24/19 04:53 Anisocytosis 1+ 12/24/19 04:53 Microcytosis Few 12/24/19 04:53 Macrocytosis Not Reportable 12/24/19 04:53 Spherocytes Not Reportable 12/24/19 04:53 Pappenheimer Bodies Not Reportable 12/24/19 04:53 Sickle Cells Not Reportable 12/24/19 04:53 Target Cells Not Reportable 12/24/19 04:53 Tear Drop Cells Not Reportable 12/24/19 04:53 Ovalocytes Few 12/24/19 04:53 Helmet Cells Not Reportable 12/24/19 04:53 Brink-Donalds Bodies Not Reportable 12/24/19 04:53 [place] Rings Not Reportable 12/24/19 04:53 [place] Cells Not Reportable 12/24/19 04:53 Bite Cells Not Reportable 12/24/19 04:53 Crenated Cell Not Reportable 12/24/19 04:53 Elliptocytes Not Reportable 12/24/19 04:53 Acanthocytes (Spur) Not Reportable 12/24/19 04:53 Rouleaux Not Reportable 12/24/19 04:53 Hemoglobin C Crystals Not Reportable 12/24/19 04:53 Schistocytes Not Reportable 12/24/19 04:53 Malaria parasites Not Reportable 12/24/19 04:53 Gianni Bodies Not Reportable 12/24/19 04:53 Hem Pathologist Commnt No 12/24/19 04:53 PT 14.0 Sec. (12.2-14.9) 12/18/19 14:45 INR 1.10 (0.87-1.13) 12/18/19 14:45 APTT 29.4 Sec. (24.2-36.6) 12/18/19 14:45 D-Dimer 534.45 ng/mlDDU (0-234) H 12/18/19 14:45 ABG pH 7.407 pH Units (7.350-7.450) 01/10/20 04:20 ABG pCO2 45.1 mm Hg 01/10/20 04:20 ABG pO2 95.3 mm Hg (80.0-90.0) H 01/10/20 04:20 ABG HCO3 27.8 mmol/L (20.0-26.0) H 01/10/20 04:20 ABG O2 Saturation 97.7 % (95.0-99.0) 01/10/20 04:20 ABG O2 Content 20.6 (0.0-44) 01/10/20 04:20 ABG Base Excess 2.5 mmol/L (-2.0-3.0) 01/10/20 04:20 ABG Hemoglobin 8.3 gm/dl (14.0-18.0) L 01/10/20 04:20 ABG Carboxyhemoglobin 1.6 % (0.0-5.0) 01/10/20 04:20 ABG Methemoglobin 0.5 % (0.0-1.5) 01/10/20 04:20 Oxyhemoglobin 95.6 % (95.0-99.0) 01/10/20 04:20 FiO2 50 % 01/10/20 04:20 Sodium 148 mmol/L (137-145) H D 01/11/20 05:45 Potassium 5.1 mmol/L (3.6-5.0) H 01/11/20 05:45 Chloride 111.9 mmol/L (98-107) H 01/11/20 05:45 Carbon Dioxide 28 mmol/L (22-30) 01/11/20 05:45 Anion Gap 13 mmol/L 01/11/20 05:45 BUN 26 mg/dL (9-20) H 01/11/20 05:45 Creatinine 0.8 mg/dL (0.8-1.5) 01/11/20 05:45 Estimated GFR > 60 ml/min 01/11/20 05:45 BUN/Creatinine Ratio 33 % 01/11/20 05:45 Glucose 236 mg/dL (75-100) H 01/11/20 05:45 POC Glucose 213 (70-105) H 01/12/20 11:29 Lactic Acid 1.70 mmol/L (0.7-2.0) 12/30/19 05:06 Calcium 8.7 mg/dL (8.4-10.2) 01/11/20 05:45 Phosphorus 3.70 mg/dL (2.5-4.5) 12/27/19 03:48 Magnesium 2.60 mg/dL (1.7-2.3) H 12/30/19 05:06 Ferritin 83.4 ng/mL (13.0-400.0) 12/18/19 14:45 Total Bilirubin 0.20 mg/dL (0.1-1.2) 01/11/20 05:45 AST 67 units/L (5-40) H 01/11/20 05:45 ALT 45 units/L (7-56) 01/11/20 05:45 Alkaline Phosphatase 111 units/L (35-129) 01/11/20 05:45 Ammonia 39.0 umol/L (25-60) 12/18/19 14:45 Lactate Dehydrogenase 235 units/L (91-180) H 12/18/19 14:45 Lactate Dehydrogenase 236 units/L (91-180) H 12/18/19 14:45 Total Creatine Kinase 40 units/L (55-170) L 12/18/19 14:45 Troponin T 0.011 ng/mL (0.00-0.029) 12/18/19 14:45 C-Reactive Protein 8.40 mg/dL (0.00-1.30) H 12/18/19 14:45 C-Reactive Protein 8.50 mg/dL (0.00-1.30) H 12/18/19 14:45 Total Protein 5.9 g/dL (6.3-8.2) L 01/11/20 05:45 Albumin 2.8 g/dL (3.9-5) L 01/11/20 05:45 Albumin/Globulin Ratio 0.9 % 01/11/20 05:45 Procalcitonin 0.22 ng/mL (<0.15) 12/18/19 14:45 TSH 2.300 mlU/mL (0.270-4.200) 12/18/19 14:45 Urine Color Yellow (Yellow) 12/19/19 16:50 Urine Turbidity Clear (Clear) 12/19/19 16:50 Urine pH 5.0 (5.0-7.0) 12/19/19 16:50 Ur Specific Hamer 1.010 (1.003-1.030) 12/19/19 16:50 Urine Protein <15 mg/dl mg/dL (Negative) 12/19/19 16:50 Urine Glucose (UA) 150 mg/dL (Negative) 12/19/19 16:50 Urine Ketones Neg mg/dL (Negative) 12/19/19 16:50 Urine Blood Neg (Negative) 12/19/19 16:50 Urine Nitrite Neg (Negative) 12/19/19 16:50 Urine Bilirubin Neg (Negative) 12/19/19 16:50 Urine Urobilinogen < 2.0 mg/dL (<2.0) 12/19/19 16:50 Ur Leukocyte Esterase Tr (Negative) 12/19/19 16:50 Urine WBC (Auto) 7.0 /HPF (0.0-6.0) H 12/19/19 16:50 Urine RBC (Auto) 4.0 /HPF (0.0-6.0) 12/19/19 16:50 U Epithel Cells (Auto) 1.0 /HPF (0-13.0) 12/19/19 16:50 Urine Bacteria (Auto) 1+ /HPF (Negative) 12/19/19 16:50 Urine Mucus Few /HPF 12/19/19 16:50 Urine Osmolality 140 Mosm/kg 12/25/19 16:45 Urine Creatinine < 4.2 mg/dL (0.1-20.0) 12/25/19 16:45 Urine Sodium 10 mmol/L 12/25/19 16:45 Urine Total Protein < 4 mg/dL (5-11.8) L 12/25/19 16:45 Digoxin 0.3 ng/mL (0.9-2.0) L 12/18/19 14:45 Salicylates < 0.3 mg/dL (2.8-20.0) L 12/18/19 14:45 Acetaminophen < 5.0 ug/mL (10.0-30.0) L 12/18/19 14:45 Plasma/Serum Alcohol < 0.01 % (0-0.07) 12/18/19 14:45 Coronavirus (PCR) Negative (Negative) 12/21/19 14:45 AFB Identification 01/05/20 09:05 Fungal Id Prelim 01/05/20 09:05 Blood Type A POSITIVE 12/18/19 14:45 Antibody Screen Negative 12/18/19 14:45 - Diagnostic Impressions Diagnostic Impressions: Echocardiogram 12/28/19 14:07 Transthoracic Echocardiogram Indication: SOB BP: 95/51 HR: 99 Conclusions *The left ventricular chamber size is mildly dilated. *There is no left ventricular hypertrophy. *Global left ventricular systolic function is mildly decreased. *The estimated ejection fraction is 45-50%. *Abnormal left ventricular diastolic filling is observed, consistent with impaired relaxation. *The right ventricular global systolic function is mildly reduced. *The right ventricular systolic pressure is calculated at 53 mmHg. Findings Left Ventricle: The left ventricular chamber size is mildly dilated. There is no left ventricular hypertrophy. Global left ventricular systolic function is mildly decreased. The estimated ejection fraction is 45-50%. Abnormal left ventricular diastolic filling is observed, consistent with impaired relaxation. Left Atrium: The left atrial chamber size is normal. Right Ventricle: The right ventricular cavity size is normal. The right ventricular global systolic function is mildly reduced. Right Atrium: The right atrial cavity size is normal. Aortic Valve: The aortic valve leaflets are mildly thickened. There is no evidence of aortic regurgitation. Mitral Valve: The mitral valve leaflets are mildly thickened. There is no evidence of mitral regurgitation. Tricuspid Valve: The tricuspid valve leaflets are normal. There is mild tricuspid regurgitation. The right ventricular systolic pressure is calculated at 53 mmHg. Pulmonic Valve: The pulmonic valve appears normal. There is trace pulmonic regurgitation. Pericardium: There is no pericardial effusion. Aorta: The aorta appears normal. Venous: The inferior vena cava is dilated. Measurements Chambers 2D Name Value Normal Range IVSd (2D) 1.08 cm (0.6 - 1.1) LVPWd (2D) 1 cm (0.6 - 1.1) LVIDd (2D) 4.67 cm (3.7 - 5.6) LVIDs (2D) 3.89 cm (2 - 3.8) LV FS (2D) 16.76 % - EF Teichholz (2D) 35.14 % - Ao root diameter (2D) 2.86 cm (2 - 3.7) Volumes/Mass Name Value Normal Range LA ESV SP 4CH (A/L) 31.8 ml - LA ESV SP 2CH (A/L) 27.37 ml - LA ESV BP (A/L) 33.43 ml - LA ESV BP (A/L) index 14.11 ml/m2 - LA ESV SP 4CH (MOD) 26.83 ml - LA ESV SP 2CH (MOD) 29.59 ml - LA ESV BP (MOD) 30.47 ml - LA ESV BP (MOD) index 12.86 ml/m2 - Diastolic/Systolic Function Name Value Normal Range MV E-wave Vmax 0.39 m/sec - MV deceleration time 115.69 msec - MV A-wave Vmax 0.63 m/sec - MV E:A ratio 0.62 ratio - Aortic Valve Name Value Normal Range AV Vmax 1.14 m/sec - AV VTI 20.1 cm - AV peak gradient 5.17 mmHg - AV mean gradient 3.89 mmHg - LVOT diameter 2.02 cm - LVOT Vmax 0.99 m/sec - LVOT VTI 16.45 cm - LVOT peak gradient 3.95 mmHg - LVOT mean gradient 2.45 mmHg - SV LVOT 52.45 ml - RALPH (continuity Vmax) 2.78 cm2 - RALPH (continuity VTI) 2.61 cm2 - Tricuspid Valve Name Value Normal Range TR Vmax 3.36 m/sec - TR peak gradient 45 mmHg - RAP 8 mmHg - RVSP 53 mmHg - IVC diameter 2.33 cm (1.2 - 2.3) Pulmonic Valve/Qp:Qs Name Value Normal Range PV Vmax 0.89 m/sec - PV peak gradient 3.16 mmHg - AR end-diastolic Vmax 1.42 m/sec - PV acceleration time 79.92 msec - Sykes/IV: Voiding Method Condom Catheter IV Catheter Type [Right Upper PICC Line arm] IV Catheter Type [Right Leg] Intra-osseous IV Catheter Type [Right Wrist] Peripheral IV IV Catheter Type [Right Hand] INT / Saline Lock IV Catheter Type [Left Hand] INT / Saline Lock IV Catheter Type [Left Forearm INT / Saline Lock ] IV Catheter Type [Left Triple Lumen Cath Internal Jugular] Active Medications - Current Medications Current Medications: Generic Name Dose Route Start Last Admin Trade Name Freq PRN Reason Stop Dose Admin Acetaminophen 650 mg 12/29/19 09:21 01/03/20 18:31 Tylenol PO 650 mg Q4H PRN Administration Non Cardiac Pain or Temp>100.5 Albuterol/Ipratropium 1 ampul 12/18/19 14:00 01/12/20 13:17 Duoneb *Not For Prn Use* IH 1 ampul TIDRT SHANEL Administration Lipase/Protease/Amylase 1 each 12/19/19 08:29 Pancrecorry Cabrera 10,500 Unit FEEDTUBE PRN PRN For Clogged Feeding Tube Aspirin 81 mg 12/19/19 10:00 01/12/20 12:55 Baby Aspirin PO 81 mg DAILY SHANEL Administration Atropine Sulfate 1 mg 01/09/20 13:50 01/10/20 18:00 Atropine 0.1% (Cardiac) IV 1 mg PRN PRN Administration Bradycardia Bisacodyl 10 mg 01/02/20 15:48 01/02/20 18:25 Dulcolax AR 10 mg QDAY PRN Administration Constipation Docusate Sodium 100 mg 01/01/20 22:00 01/12/20 12:54 Colace PO 100 mg BID SHANEL Administration Famotidine 20 mg 12/20/19 10:00 01/12/20 12:54 Pepcid PO 20 mg BID SHANEL Administration Fentanyl 50 mcg 12/27/19 16:57 Sublimaze IV Q10MIN PRN ANALGESIA Folic Acid 1 mg 12/19/19 10:00 01/12/20 12:55 Folvite PO 1 mg DAILY SHANEL Administration Heparin Sodium (Porcine) 5,000 unit 12/18/19 22:00 01/12/20 12:55 Heparin SUB-Q 5,000 unit Q12HR SHANEL Administration Hydrocortisone Sodium Succinate 100 mg 01/07/20 14:00 01/12/20 06:26 Solu-Cortef IV 01/12/20 13:59 100 mg Q8HR SHANEL Administration Hydrophilic Ointment 1 applic 12/18/19 12:35 Vaseline Lip Therapy TP Q2HR PRN Dry Lips Fentanyl Citrate 2,000 mcg in 100 mls @ 5.85 mls/hr 12/27/19 17:00 01/12/20 10:38 Fentanyl Drip Premix IV 1 mcg/kg/hr TITR SHANEL 5.85 mls/hr Titration Protocol 1 MCG/KG/HR Norepinephrine 4 mg in 250 mls @ 7.5 mls/hr 12/28/19 15:00 01/09/20 09:02 Levophed Drip 4 Mg/Ns 250 Ml IV 0 mcg/min TITR SHANEL 0 mls/hr Titration Protocol 2 MCG/MIN Vasopressin 20 unit/ Sodium 101 mls @ 9.09 mls/hr 12/30/19 12:30 01/01/20 13:44 Chloride IV 0 units/min TITR SHANEL 0 mls/hr Titration Protocol 0.03 UNITS/MIN Dopamine HCl/Dextrose 800 mg in 250 mls @ 4.388 mls/hr 12/31/19 16:00 01/12/20 08:00 Intropin Drip 800 Mg/D5w 250 Ml IV 4 mcg/kg/min TITR SHANEL 8.775 mls/hr Titration Protocol 2 MCG/KG/MIN Insulin Glargine 15 units 01/10/20 14:00 01/12/20 13:04 Lantus SUB-Q 15 units BID SHANEL Administration Insulin Human Lispro 0 unit 12/31/19 14:00 01/12/20 11:40 Humalog SUB-Q 4 unit Q4HR [facility] Administration Protocol Levothyroxine Sodium 88 mcg 12/19/19 06:00 01/12/20 06:27 Synthroid PO 88 mcg QAM@0600 [facility] Administration Multi-Ingred Cream/Lotion/Oil/Oint 1 applic 12/18/19 12:35 Artificial Tears Ophth Oint OU Q4HR PRN Dry Eye(s) Polyethylene Glycol 17 gm 01/01/20 22:00 01/11/20 21:55 Miralax 3350 PO 17 gm QHS SHANEL Administration Simple Syrup 15 ml 12/19/19 08:29 01/06/20 04:58 Simple Syrup FEEDTUBE 15 ml PRN PRN Administration Hypoglycemia Simple Syrup 30 ml 12/19/19 08:29 Simple Syrup FEEDTUBE PRN PRN Hypoglycemia Sodium Bicarbonate 325 mg 12/19/19 08:29 Sodium Bicarbonate FEEDTUBE PRN PRN For Clogged Feeding Tube Sodium Chloride 10 ml 12/18/19 22:00 01/12/20 12:56 Sodium Chloride Flush Syringe 10 Ml IV 10 ml BID SHANEL Administration Sodium Chloride 10 ml 12/18/19 13:31 Sodium Chloride Flush Syringe 10 Ml IV PRN PRN LINE [facility] Nutrition/Malnutrition Assess - Dietary Evaluation Nutrition/Malnutrition Findings: Nutrition Notes Start: 12/19/19 08:16 Freq: Status: Active Protocol: Document 01/12/20 13:27 LP (Rec: 01/12/20 13:30 LP [id number]) Nutrition Notes Initial or Follow up Reassessment Current Diagnosis Diabetes,Sepsis,Hypertension, Heart Failure,Respiratory Failure Other Pertinent Diagnosis COVID-19 (-), pneu Current Diet Vital AF 1.2 at 65ml/hr Labs/Tests K 5.1 Na 148 Pertinent Medications Reviewed Height 6 ft 2 in Weight 117 kg [place] Body Weight (kg) 86.36 BMI 33.1 Weight Status Obese Subjective/Other Information Pt tolerating TF at goal rate. Pt Na elevated and MD ordered 200ml q4h flushes. Percent of energy/protein needs met: 94%/68% Burn Absent Trauma Absent Current % PO Negligible Minimum of two criteria No physical signs of malnutrition #1 Nutrition Diagnosis Inadequate oral intake Diagnosis Progress(for reassessment Continues documentation) Is patient on ventilator? Yes Is Patient Ambulatory and/or Out of Bed No REE-([facility]-confined to bed) 2469.960 Kcal/Kg value to use for calculation 17 Approximate Energy Requirements Using 1989 kcal/Kg Calculation Used for Recommendations Kcal/kg Additional Notes Protein: 172g (>/=2g/kg using IBW 86kg) Fluid 1ml/kcal Nutrition Intervention Change Diet Order: TF Nutrition Support: Vital AF 1.2 at 65ml/hr Flush 250ml q4h for hypernatremia Flush 100ml q4h Kcal 1,872 Protein (gm) 117 Fluid (mL) 1,265 Goal #1 TF tolerance Goal #2 Meet at least 75% of energy and protein needs Anticipated Discharge Needs: unable to determine at this time Follow-Up By: 01/14/20 Additional Comments Follow for Na level
--- NOTE | 2020-01-12 15:47 | Progress Note ---
Assessment and Plan Acute Hypoxemic Respiratory Failure Severe Sepsis with Shock Bilateral Pneumonia PUI COVID-19 Morbid Obesity H/O CHF JOE - family intimated on care plan - continue to wean Dopamine per cardiology (re: persistent bradycardia) - no new issues otherwise, continue care as below; - continue bowel regimen (abdomen softer) - keep peep at 8 cm H2O re: bibasilar atelectasis - continue to wean vasopressors for MAP > 65 mmHg - prn CXR's & ABG's at this point - Daily SAT and SBT assessment as tolerated - accuchecks with glycemic control per SSI (While critically ill target blood glucose of 140-180 mg/dL; avoid hypoglycemia) - sedation for target RASS 0 to -1 - continue to wean supplemental oxygen for target O2 sat's > 92% acutely - continue bronchodilators with pulmonary hygiene per RT - VAP bundle addressed - lung protective strategies - wean per pulmonary driven protocols otherwise - continue to avoid benzodiazepine's, reduce the possibility of delirium - adjust AB's per ID rec's - prn analgesia per CPOT score - Maintenance of sleep-wake cycle - continue to avoid benzodiazepine's, reduce the possibility of delirium - continue enteral nutritional support at goal rate as tolerated - G.I. & VTE prophylaxis - PT/OT/ROM exercises - continue mobility protocols for pressure ulcer prophylaxis - repeat COVID-19 test negative - continue aspiration precautions - continue accuchecks with glycemic control per SSI (While critically ill target blood glucose of 140-180 mg/dL; avoid hypoglycemia) - Monitor hemodynamics closely - continue other care per attending / other consultants - discharge planning ongoing concurrently - LTAC evaluation requested .... Re-evaluate in am & prn CONDITION: CRITICAL PROGNOSIS: GUARDED CODE STATUS: FULL CODE The high probability of a clinically significant, sudden or life-threatening deterioration of the [respiratory, cardiovascular, GI & neurologic] system(s) required my full and direct attention, intervention and personal management. The aggregate critical care time was [31] minutes without overlap. Time includes spent on; [x] Data Review and interpretation [x] Patient assessment and monitoring of vital signs [x] Documentation [x] Medication orders and management Subjective Date of service: 01/12/20 Principal diagnosis: Ac. Hypoxemic Resp Failure; Septic Shock; Magdiel. PNA; PUI COVID-19; CHF; JOE Interval history: Patient is seen today for: Acute Hypoxemic Respiratory Failure; Severe Sepsis with Shock; Bilateral Pneumonia; PUI COVID-19; Morbid Obesity; H/O CHF; JOE Seen and examined at bedside; 24hour events reviewed; nursing and respiratory care staff consulted; no adverse overnight events reported to me; resting peacefully in bed; remains on MVS; awaiting trach & PEG Objective Vital Signs - 12hr 01/12/20 01/12/20 01/12/20 04:00 04:15 04:30 Temperature 97.6 F Pulse Rate 49 L 50 L 47 L Pulse Rate [ Bilateral] Respiratory 16 16 15 Rate Respiratory Rate [Bilateral ] Blood Pressure 126/62 108/54 112/52 O2 Sat by Pulse 100 100 99 Oximetry 01/12/20 01/12/20 01/12/20 04:45 05:00 05:15 Temperature Pulse Rate 48 L 49 L 44 L Pulse Rate [ Bilateral] Respiratory 15 15 10 L Rate Respiratory Rate [Bilateral ] Blood Pressure 107/53 108/54 107/51 O2 Sat by Pulse 99 99 99 Oximetry 01/12/20 01/12/20 01/12/20 05:30 05:45 06:00 Temperature Pulse Rate 44 L 45 L 45 L Pulse Rate [ Bilateral] Respiratory 15 14 13 Rate Respiratory Rate [Bilateral ] Blood Pressure 106/49 115/54 109/53 O2 Sat by Pulse 99 99 99 Oximetry 01/12/20 01/12/20 01/12/20 06:15 06:30 06:45 Temperature Pulse Rate 45 L 49 L 43 L Pulse Rate [ Bilateral] Respiratory 15 15 15 Rate Respiratory Rate [Bilateral ] Blood Pressure 105/51 117/59 102/51 O2 Sat by Pulse 99 100 99 Oximetry 01/12/20 01/12/20 01/12/20 07:00 07:15 07:30 Temperature Pulse Rate 41 L 43 L 41 L Pulse Rate [ Bilateral] Respiratory 14 15 12 Rate Respiratory Rate [Bilateral ] Blood Pressure 103/51 110/55 116/57 O2 Sat by Pulse 100 100 100 Oximetry 01/12/20 01/12/20 01/12/20 07:39 07:45 08:00 Temperature 97.9 F Pulse Rate 39 L 43 L Pulse Rate [ 43 L Bilateral] Respiratory 13 14 Rate Respiratory 20 Rate [Bilateral ] Blood Pressure 118/58 134/68 O2 Sat by Pulse 99 100 Oximetry 01/12/20 01/12/20 01/12/20 08:16 08:30 08:35 Temperature Pulse Rate 35 L 38 L 42 L Pulse Rate [ Bilateral] Respiratory 14 14 Rate Respiratory Rate [Bilateral ] Blood Pressure 134/68 165/81 134/68 O2 Sat by Pulse 99 100 99 Oximetry 01/12/20 01/12/20 01/12/20 08:46 09:00 09:15 Temperature Pulse Rate 39 L 56 L 43 L Pulse Rate [ Bilateral] Respiratory 17 22 18 Rate Respiratory Rate [Bilateral ] Blood Pressure 149/74 149/74 150/77 O2 Sat by Pulse 100 99 100 Oximetry 01/12/20 01/12/20 01/12/20 09:30 09:45 10:00 Temperature Pulse Rate 45 L 42 L 43 L Pulse Rate [ Bilateral] Respiratory 18 16 14 Rate Respiratory Rate [Bilateral ] Blood Pressure 150/77 154/73 154/73 O2 Sat by Pulse 100 100 100 Oximetry 01/12/20 01/12/20 01/12/20 10:16 10:30 10:45 Temperature Pulse Rate 45 L 44 L 42 L Pulse Rate [ Bilateral] Respiratory 15 15 15 Rate Respiratory Rate [Bilateral ] Blood Pressure 147/60 147/60 150/68 O2 Sat by Pulse 100 100 100 Oximetry 01/12/20 01/12/20 01/12/20 11:00 11:15 11:30 Temperature Pulse Rate 43 L 44 L 42 L Pulse Rate [ Bilateral] Respiratory 14 16 15 Rate Respiratory Rate [Bilateral ] Blood Pressure 150/68 152/72 140/74 O2 Sat by Pulse 100 100 100 Oximetry 01/12/20 01/12/20 01/12/20 11:45 12:00 12:15 Temperature Pulse Rate 44 L 46 L 48 L Pulse Rate [ Bilateral] Respiratory 14 20 14 Rate Respiratory Rate [Bilateral ] Blood Pressure 142/73 148/78 148/76 O2 Sat by Pulse 100 100 100 Oximetry 01/12/20 01/12/20 01/12/20 12:30 12:45 13:00 Temperature Pulse Rate 43 L 43 L 48 L Pulse Rate [ Bilateral] Respiratory 15 14 14 Rate Respiratory Rate [Bilateral ] Blood Pressure 141/70 139/69 152/73 O2 Sat by Pulse 100 100 100 Oximetry 01/12/20 01/12/20 01/12/20 13:15 13:17 13:30 Temperature Pulse Rate 45 L 47 L Pulse Rate [ 46 L Bilateral] Respiratory 14 14 Rate Respiratory 18 Rate [Bilateral ] Blood Pressure 139/67 139/67 O2 Sat by Pulse 100 100 Oximetry 01/12/20 01/12/20 01/12/20 13:45 14:00 14:15 Temperature Pulse Rate 46 L 43 L 47 L Pulse Rate [ Bilateral] Respiratory 14 15 16 Rate Respiratory Rate [Bilateral ] Blood Pressure 131/63 131/63 122/59 O2 Sat by Pulse 100 100 100 Oximetry 01/12/20 14:30 Temperature Pulse Rate 44 L Pulse Rate [ Bilateral] Respiratory 14 Rate Respiratory Rate [Bilateral ] Blood Pressure 117/69 O2 Sat by Pulse 100 Oximetry Constitutional: other (elderly obese AAM with mildly increrased respiratory effort at rest on MVS) Eyes: non-icteric ENT: oropharynx moist, other (ETT 24 cm KOLBY) Neck: supple, no lymphadenopathy, no JVD Effort: mildly labored Ascultation: Bilateral: diminished breath sounds, rhonchi, other (diminished bi basilar air entry) Percussion: Bilateral: not dull Cardiovascular: regular rate and rhythm, other (S1,S2) Gastrointestinal: normoactive bowel sounds, soft, non-tender, other (protuberant) Integumentary: rash (stasis dermatyitis) Extremities: no cyanosis, pink and warm, pulses normal, no ischemia or petechiae, edema (trace) Neurologic: normal mental status, non-focal exam, pupils equal and round, CN II- XII normal, motor strength normal and (obeys simple commands) Psychiatric: mood appropriate, affect normal CBC and BMP: 01/21/20 13:01 01/21/20 13:01 ABG, PT/INR, D-dimer: ABG ABG pH 7.407 pH Units (7.350-7.450) 01/10/20 04:20 ABG pCO2 45.1 mm Hg 01/10/20 04:20 ABG pO2 95.3 mm Hg (80.0-90.0) H 01/10/20 04:20 ABG O2 Saturation 97.7 % (95.0-99.0) 01/10/20 04:20 PT/INR, D-dimer PT 14.0 Sec. (12.2-14.9) 12/18/19 14:45 INR 1.10 (0.87-1.13) 12/18/19 14:45 D-Dimer 534.45 ng/mlDDU (0-234) H 12/18/19 14:45 Abnormal lab findings: Abnormal Labs 12/18/19 12/18/19 12/18/19 12:23 14:45 14:45 WBC RBC Hgb 10.4 L Hct 35.2 L MCV MCH 25 L MCHC 30 L RDW 18.8 H Plt Count Lymph % (Auto) Charles % (Auto) 11.6 H Eos % (Auto) 4.8 H Lymph # Charles # 1.0 H Eos # Seg Neutrophils % Monocytes % (Manual) Monocytes # (Manual) D-Dimer ABG pH ABG pO2 ABG HCO3 ABG O2 Saturation ABG Base Excess ABG Hemoglobin Oxyhemoglobin Sodium Potassium Chloride Carbon Dioxide BUN Creatinine Glucose POC Glucose 328 H Lactic Acid Calcium Magnesium AST ALT Lactate Dehydrogenase Total Creatine Kinase 40 L C-Reactive Protein Total Protein Albumin Urine WBC (Auto) Urine Total Protein Digoxin Salicylates Acetaminophen 12/18/19 12/18/19 12/18/19 14:45 14:45 14:45 WBC RBC Hgb Hct MCV MCH MCHC RDW Plt Count Lymph % (Auto) Charles % (Auto) Eos % (Auto) Lymph # Charles # Eos # Seg Neutrophils % Monocytes % (Manual) Monocytes # (Manual) D-Dimer 534.45 H ABG pH ABG pO2 ABG HCO3 ABG O2 Saturation ABG Base Excess ABG Hemoglobin Oxyhemoglobin Sodium 156 H Potassium Chloride 112.3 H Carbon Dioxide 31 H BUN 32 H Creatinine Glucose 328 H POC Glucose Lactic Acid Calcium Magnesium AST ALT Lactate Dehydrogenase 235 H Total Creatine Kinase C-Reactive Protein 8.50 H Total Protein Albumin 3.6 L Urine WBC (Auto) Urine Total Protein Digoxin 0.3 L Salicylates < 0.3 L Acetaminophen 12/18/19 12/18/19 12/18/19 14:45 14:45 16:00 WBC RBC Hgb Hct MCV MCH MCHC RDW Plt Count Lymph % (Auto) Charles % (Auto) Eos % (Auto) Lymph # Charles # Eos # Seg Neutrophils % Monocytes % (Manual) Monocytes # (Manual) D-Dimer ABG pH ABG pO2 69.8 L ABG HCO3 31.8 H ABG O2 Saturation ABG Base Excess 5.4 H ABG Hemoglobin 10.0 L Oxyhemoglobin 92.9 L Sodium Potassium Chloride Carbon Dioxide BUN Creatinine Glucose 314 H POC Glucose Lactic Acid Calcium Magnesium AST ALT Lactate Dehydrogenase 236 H Total Creatine Kinase C-Reactive Protein 8.40 H Total Protein Albumin Urine WBC (Auto) Urine Total Protein Digoxin Salicylates Acetaminophen < 5.0 L 12/18/19 12/18/19 12/18/19 16:35 18:30 22:56 WBC RBC Hgb Hct MCV MCH MCHC RDW Plt Count Lymph % (Auto) Charles % (Auto) Eos % (Auto) Lymph # Charles # Eos # Seg Neutrophils % Monocytes % (Manual) Monocytes # (Manual) D-Dimer ABG pH ABG pO2 ABG HCO3 ABG O2 Saturation ABG Base Excess ABG Hemoglobin Oxyhemoglobin Sodium Potassium Chloride Carbon Dioxide BUN Creatinine Glucose POC Glucose 310 H 353 H Lactic Acid 2.50 H* Calcium Magnesium AST ALT Lactate Dehydrogenase Total Creatine Kinase C-Reactive Protein Total Protein Albumin Urine WBC (Auto) Urine Total Protein Digoxin Salicylates Acetaminophen 12/19/19 12/19/19 12/19/19 04:13 04:13 06:00 WBC RBC Hgb 10.0 L Hct 34.2 L MCV MCH 25 L MCHC 29 L RDW 19.0 H Plt Count Lymph % (Auto) Charles % (Auto) 10.1 H Eos % (Auto) Lymph # Charles # 1.1 H Eos # Seg Neutrophils % 71.8 H Monocytes % (Manual) Monocytes # (Manual) D-Dimer ABG pH ABG pO2 186.5 H ABG HCO3 27.8 H ABG O2 Saturation 99.1 H ABG Base Excess ABG Hemoglobin 10.4 L Oxyhemoglobin Sodium 157 H Potassium Chloride 119.1 H Carbon Dioxide BUN 26 H Creatinine Glucose 302 H POC Glucose Lactic Acid Calcium 7.9 L Magnesium AST 85 H ALT 61 H Lactate Dehydrogenase Total Creatine Kinase C-Reactive Protein Total Protein Albumin 3.0 L Urine WBC (Auto) Urine Total Protein Digoxin Salicylates Acetaminophen 12/19/19 12/19/19 12/19/19 08:30 11:55 16:50 WBC RBC Hgb Hct MCV MCH MCHC RDW Plt Count Lymph % (Auto) Charles % (Auto) Eos % (Auto) Lymph # Charles # Eos # Seg Neutrophils % Monocytes % (Manual) Monocytes # (Manual) D-Dimer ABG pH ABG pO2 ABG HCO3 ABG O2 Saturation ABG Base Excess ABG Hemoglobin Oxyhemoglobin Sodium Potassium Chloride Carbon Dioxide BUN Creatinine Glucose POC Glucose 264 H 251 H Lactic Acid Calcium Magnesium AST ALT Lactate Dehydrogenase Total Creatine Kinase C-Reactive Protein Total Protein Albumin Urine WBC (Auto) 7.0 H Urine Total Protein Digoxin Salicylates Acetaminophen 12/19/19 12/19/19 12/20/19 17:41 23:42 03:35 WBC RBC Hgb Hct MCV MCH MCHC RDW Plt Count Lymph % (Auto) Charles % (Auto) Eos % (Auto) Lymph # Charles # Eos # Seg Neutrophils % Monocytes % (Manual) Monocytes # (Manual) D-Dimer ABG pH ABG pO2 ABG HCO3 27.7 H ABG O2 Saturation ABG Base Excess ABG Hemoglobin 11.6 L Oxyhemoglobin 94.9 L Sodium Potassium Chloride Carbon Dioxide BUN Creatinine Glucose POC Glucose 180 H 205 H Lactic Acid Calcium Magnesium AST ALT Lactate Dehydrogenase Total Creatine Kinase C-Reactive Protein Total Protein Albumin Urine WBC (Auto) Urine Total Protein Digoxin Salicylates Acetaminophen 12/20/19 12/20/19 12/20/19 04:45 04:45 05:27 WBC RBC Hgb 9.4 L Hct 31.4 L MCV MCH 25 L MCHC 30 L RDW 19.4 H Plt Count Lymph % (Auto) Charles % (Auto) 10.2 H Eos % (Auto) 6.0 H Lymph # 0.9 L Charles # Eos # Seg Neutrophils % Monocytes % (Manual) Monocytes # (Manual) D-Dimer ABG pH ABG pO2 ABG HCO3 ABG O2 Saturation ABG Base Excess ABG Hemoglobin Oxyhemoglobin Sodium 153 H Potassium Chloride 114.6 H Carbon Dioxide BUN Creatinine Glucose 170 H POC Glucose 188 H Lactic Acid Calcium 7.9 L Magnesium AST ALT Lactate Dehydrogenase Total Creatine Kinase C-Reactive Protein Total Protein Albumin Urine WBC (Auto) Urine Total Protein Digoxin Salicylates Acetaminophen 12/20/19 12/20/19 12/21/19 12:26 18:20 00:20 WBC RBC Hgb Hct MCV MCH MCHC RDW Plt Count Lymph % (Auto) Charles % (Auto) Eos % (Auto) Lymph # Charles # Eos # Seg Neutrophils % Monocytes % (Manual) Monocytes # (Manual) D-Dimer ABG pH ABG pO2 ABG HCO3 ABG O2 Saturation ABG Base Excess ABG Hemoglobin Oxyhemoglobin Sodium Potassium Chloride Carbon Dioxide BUN Creatinine Glucose POC Glucose 200 H 263 H 218 H Lactic Acid Calcium Magnesium AST ALT Lactate Dehydrogenase Total Creatine Kinase C-Reactive Protein Total Protein Albumin Urine WBC (Auto) Urine Total Protein Digoxin Salicylates Acetaminophen 12/21/19 12/21/19 12/21/19 04:38 05:26 12:35 WBC RBC Hgb Hct MCV MCH MCHC RDW Plt Count Lymph % (Auto) Charles % (Auto) Eos % (Auto) Lymph # Charles # Eos # Seg Neutrophils % Monocytes % (Manual) Monocytes # (Manual) D-Dimer ABG pH ABG pO2 ABG HCO3 ABG O2 Saturation ABG Base Excess ABG Hemoglobin Oxyhemoglobin Sodium 149 H Potassium 3.5 L Chloride 110.5 H Carbon Dioxide BUN Creatinine Glucose 158 H POC Glucose 193 H 193 H Lactic Acid Calcium Magnesium AST ALT Lactate Dehydrogenase Total Creatine Kinase C-Reactive Protein Total Protein Albumin Urine WBC (Auto) Urine Total Protein Digoxin Salicylates Acetaminophen 12/21/19 12/22/19 12/22/19 18:29 00:03 05:15 WBC RBC Hgb 10.3 L Hct 34.7 L MCV MCH 25 L MCHC 30 L RDW 19.4 H Plt Count Lymph % (Auto) 9.0 L Charles % (Auto) 12.3 H Eos % (Auto) 5.0 H Lymph # 0.5 L Charles # Eos # Seg Neutrophils % 73.2 H Monocytes % (Manual) Monocytes # (Manual) D-Dimer ABG pH ABG pO2 ABG HCO3 ABG O2 Saturation ABG Base Excess ABG Hemoglobin Oxyhemoglobin Sodium Potassium Chloride Carbon Dioxide BUN Creatinine Glucose POC Glucose 186 H 143 H Lactic Acid Calcium Magnesium AST ALT Lactate Dehydrogenase Total Creatine Kinase C-Reactive Protein Total Protein Albumin Urine WBC (Auto) Urine Total Protein Digoxin Salicylates Acetaminophen 12/22/19 12/22/19 12/22/19 05:15 06:02 12:13 WBC RBC Hgb Hct MCV MCH MCHC RDW Plt Count Lymph % (Auto) Charles % (Auto) Eos % (Auto) Lymph # Charles # Eos # Seg Neutrophils % Monocytes % (Manual) Monocytes # (Manual) D-Dimer ABG pH ABG pO2 ABG HCO3 ABG O2 Saturation ABG Base Excess ABG Hemoglobin Oxyhemoglobin Sodium 152 H Potassium Chloride 113.5 H Carbon Dioxide BUN Creatinine Glucose 126 H POC Glucose 144 H 159 H Lactic Acid Calcium Magnesium AST ALT Lactate Dehydrogenase Total Creatine Kinase C-Reactive Protein Total Protein Albumin Urine WBC (Auto) Urine Total Protein Digoxin Salicylates Acetaminophen 12/22/19 12/22/19 12/23/19 18:03 23:50 05:27 WBC RBC Hgb Hct MCV MCH MCHC RDW Plt Count Lymph % (Auto) Charles % (Auto) Eos % (Auto) Lymph # Charles # Eos # Seg Neutrophils % Monocytes % (Manual) Monocytes # (Manual) D-Dimer ABG pH ABG pO2 ABG HCO3 ABG O2 Saturation ABG Base Excess ABG Hemoglobin Oxyhemoglobin Sodium Potassium Chloride Carbon Dioxide BUN Creatinine Glucose POC Glucose 140 H 227 H 185 H Lactic Acid Calcium Magnesium AST ALT Lactate Dehydrogenase Total Creatine Kinase C-Reactive Protein Total Protein Albumin Urine WBC (Auto) Urine Total Protein Digoxin Salicylates Acetaminophen 12/23/19 12/23/19 12/23/19 12:13 16:05 16:40 WBC RBC Hgb Hct MCV MCH MCHC RDW Plt Count Lymph % (Auto) Charles % (Auto) Eos % (Auto) Lymph # Charles # Eos # Seg Neutrophils % Monocytes % (Manual) Monocytes # (Manual) D-Dimer ABG pH 7.259 L ABG pO2 76.2 L ABG HCO3 30.6 H ABG O2 Saturation 94.6 L ABG Base Excess ABG Hemoglobin 11.5 L Oxyhemoglobin 92.2 L Sodium 163 H* D Potassium 3.4 L Chloride 120.1 H Carbon Dioxide BUN Creatinine Glucose 162 H POC Glucose 132 H Lactic Acid Calcium Magnesium AST ALT Lactate Dehydrogenase Total Creatine Kinase C-Reactive Protein Total Protein Albumin Urine WBC (Auto) Urine Total Protein Digoxin Salicylates Acetaminophen 12/23/19 12/24/19 12/24/19 17:53 00:48 04:20 WBC RBC Hgb Hct MCV MCH MCHC RDW Plt Count Lymph % (Auto) Charles % (Auto) Eos % (Auto) Lymph # Charles # Eos # Seg Neutrophils % Monocytes % (Manual) Monocytes # (Manual) D-Dimer ABG pH ABG pO2 ABG HCO3 30.4 H ABG O2 Saturation ABG Base Excess 3.9 H ABG Hemoglobin 10.3 L Oxyhemoglobin 94.4 L Sodium Potassium Chloride Carbon Dioxide BUN Creatinine Glucose POC Glucose 180 H 174 H Lactic Acid Calcium Magnesium AST ALT Lactate Dehydrogenase Total Creatine Kinase C-Reactive Protein Total Protein Albumin Urine WBC (Auto) Urine Total Protein Digoxin Salicylates Acetaminophen 12/24/19 12/24/1920 04:53 04:53 11:50 WBC RBC Hgb 9.7 L Hct 33.2 L MCV MCH 25 L MCHC 29 L RDW 20.1 H Plt Count Lymph % (Auto) Charles % (Auto) Eos % (Auto) Lymph # Charles # Eos # Seg Neutrophils % Monocytes % (Manual) 15.0 H Monocytes # (Manual) 0.9 H D-Dimer ABG pH ABG pO2 ABG HCO3 ABG O2 Saturation ABG Base Excess ABG Hemoglobin Oxyhemoglobin Sodium 163 H* Potassium 3.2 L Chloride 122.6 H Carbon Dioxide BUN Creatinine Glucose 168 H POC Glucose 190 H Lactic Acid Calcium Magnesium AST ALT Lactate Dehydrogenase Total Creatine Kinase C-Reactive Protein Total Protein Albumin Urine WBC (Auto) Urine Total Protein Digoxin Salicylates Acetaminophen 12/24/19 12/24/19 12/24/19 15:00 16:28 21:15 WBC RBC Hgb Hct MCV MCH MCHC RDW Plt Count Lymph % (Auto) Charles % (Auto) Eos % (Auto) Lymph # Charles # Eos # Seg Neutrophils % Monocytes % (Manual) Monocytes # (Manual) D-Dimer ABG pH ABG pO2 ABG HCO3 ABG O2 Saturation ABG Base Excess ABG Hemoglobin Oxyhemoglobin Sodium 165 H* D 163 H* Potassium Chloride Carbon Dioxide BUN Creatinine Glucose POC Glucose 160 H Lactic Acid Calcium Magnesium AST ALT Lactate Dehydrogenase Total Creatine Kinase C-Reactive Protein Total Protein Albumin Urine WBC (Auto) Urine Total Protein Digoxin Salicylates Acetaminophen 12/25/19 12/25/19 12/25/19 00:31 05:38 05:46 WBC RBC Hgb 9.7 L Hct 32.5 L MCV MCH 25 L MCHC 30 L RDW 19.4 H Plt Count Lymph % (Auto) Charles % (Auto) Eos % (Auto) Lymph # Charles # Eos # Seg Neutrophils % Monocytes % (Manual) Monocytes # (Manual) D-Dimer ABG pH ABG pO2 ABG HCO3 ABG O2 Saturation ABG Base Excess ABG Hemoglobin Oxyhemoglobin Sodium Potassium Chloride Carbon Dioxide BUN Creatinine Glucose POC Glucose 182 H 194 H Lactic Acid Calcium Magnesium AST ALT Lactate Dehydrogenase Total Creatine Kinase C-Reactive Protein Total Protein Albumin Urine WBC (Auto) Urine Total Protein Digoxin Salicylates Acetaminophen 12/25/19 12/25/19 12/25/19 05:46 11:35 11:38 WBC RBC Hgb Hct MCV MCH MCHC RDW Plt Count Lymph % (Auto) Charles % (Auto) Eos % (Auto) Lymph # Charles # Eos # Seg Neutrophils % Monocytes % (Manual) Monocytes # (Manual) D-Dimer ABG pH 7.330 L ABG pO2 65.7 L ABG HCO3 32.6 H ABG O2 Saturation 92.5 L ABG Base Excess 5.3 H ABG Hemoglobin 10.4 L Oxyhemoglobin 90.0 L Sodium 166 H* Potassium 2.9 L* Chloride 124.5 H Carbon Dioxide BUN Creatinine Glucose 190 H POC Glucose 192 H Lactic Acid Calcium Magnesium AST ALT Lactate Dehydrogenase Total Creatine Kinase C-Reactive Protein Total Protein Albumin Urine WBC (Auto) Urine Total Protein Digoxin Salicylates Acetaminophen 12/25/19 12/25/19 12/25/19 13:01 16:45 17:20 WBC RBC Hgb Hct MCV MCH MCHC RDW Plt Count Lymph % (Auto) Charles % (Auto) Eos % (Auto) Lymph # Charles # Eos # Seg Neutrophils % Monocytes % (Manual) Monocytes # (Manual) D-Dimer ABG pH 7.296 L ABG pO2 101.5 H ABG HCO3 33.2 H ABG O2 Saturation ABG Base Excess 5.3 H ABG Hemoglobin 9.6 L Oxyhemoglobin 94.6 L Sodium 174 H* Potassium Chloride Carbon Dioxide BUN Creatinine Glucose POC Glucose Lactic Acid Calcium Magnesium AST ALT Lactate Dehydrogenase Total Creatine Kinase C-Reactive Protein Total Protein Albumin Urine WBC (Auto) Urine Total Protein < 4 L Digoxin Salicylates Acetaminophen 12/25/19 12/25/19 12/26/19 17:48 18:50 00:43 WBC RBC Hgb Hct MCV MCH MCHC RDW Plt Count Lymph % (Auto) Charles % (Auto) Eos % (Auto) Lymph # Charles # Eos # Seg Neutrophils % Monocytes % (Manual) Monocytes # (Manual) D-Dimer ABG pH ABG pO2 ABG HCO3 ABG O2 Saturation ABG Base Excess ABG Hemoglobin Oxyhemoglobin Sodium 166 H* 164 H* Potassium Chloride 127.3 H Carbon Dioxide BUN Creatinine Glucose 220 H POC Glucose 252 H Lactic Acid Calcium Magnesium AST ALT Lactate Dehydrogenase Total Creatine Kinase C-Reactive Protein Total Protein Albumin Urine WBC (Auto) Urine Total Protein Digoxin Salicylates Acetaminophen 12/26/19 12/26/19 12/26/19 05:31 08:07 08:07 WBC 4.3 L RBC Hgb 9.6 L Hct 32.1 L MCV MCH 26 L MCHC 30 L RDW 20.5 H Plt Count Lymph % (Auto) Charles % (Auto) Eos % (Auto) Lymph # Charles # Eos # Seg Neutrophils % Monocytes % (Manual) Monocytes # (Manual) D-Dimer ABG pH ABG pO2 ABG HCO3 ABG O2 Saturation ABG Base Excess ABG Hemoglobin Oxyhemoglobin Sodium 162 H* Potassium Chloride 122.1 H Carbon Dioxide BUN Creatinine Glucose 247 H POC Glucose 187 H Lactic Acid Calcium Magnesium AST ALT Lactate Dehydrogenase Total Creatine Kinase C-Reactive Protein Total Protein Albumin Urine WBC (Auto) Urine Total Protein Digoxin Salicylates Acetaminophen 12/26/19 12/26/19 12/26/19 08:07 12:20 16:25 WBC RBC Hgb Hct MCV MCH MCHC RDW Plt Count Lymph % (Auto) Charles % (Auto) Eos % (Auto) Lymph # Charles # Eos # Seg Neutrophils % Monocytes % (Manual) Monocytes # (Manual) D-Dimer ABG pH 7.290 L ABG pO2 73.2 L ABG HCO3 33.2 H ABG O2 Saturation 94.9 L ABG Base Excess 5.2 H ABG Hemoglobin 10.0 L Oxyhemoglobin 92.5 L Sodium 159 H Potassium Chloride Carbon Dioxide BUN Creatinine Glucose POC Glucose 234 H Lactic Acid Calcium Magnesium AST ALT Lactate Dehydrogenase Total Creatine Kinase C-Reactive Protein Total Protein Albumin Urine WBC (Auto) Urine Total Protein Digoxin Salicylates Acetaminophen 12/26/19 12/26/19 12/26/19 17:33 22:35 23:30 WBC RBC Hgb Hct MCV MCH MCHC RDW Plt Count Lymph % (Auto) Charles % (Auto) Eos % (Auto) Lymph # Charles # Eos # Seg Neutrophils % Monocytes % (Manual) Monocytes # (Manual) D-Dimer ABG pH ABG pO2 ABG HCO3 ABG O2 Saturation ABG Base Excess ABG Hemoglobin Oxyhemoglobin Sodium Potassium Chloride Carbon Dioxide BUN Creatinine Glucose POC Glucose 244 H 208 H 287 H Lactic Acid Calcium Magnesium AST ALT Lactate Dehydrogenase Total Creatine Kinase C-Reactive Protein Total Protein Albumin Urine WBC (Auto) Urine Total Protein Digoxin Salicylates Acetaminophen 12/27/19 12/27/19 12/27/19 03:48 03:48 03:48 WBC RBC Hgb 10.1 L Hct 35.4 L MCV MCH 25 L MCHC 29 L RDW 20.1 H Plt Count Lymph % (Auto) Charles % (Auto) Eos % (Auto) Lymph # Charles # Eos # Seg Neutrophils % Monocytes % (Manual) Monocytes # (Manual) D-Dimer ABG pH ABG pO2 ABG HCO3 ABG O2 Saturation ABG Base Excess ABG Hemoglobin Oxyhemoglobin Sodium 160 H Potassium Chloride 118.8 H Carbon Dioxide 33 H BUN Creatinine Glucose 217 H POC Glucose Lactic Acid Calcium Magnesium 2.70 H AST ALT Lactate Dehydrogenase Total Creatine Kinase C-Reactive Protein Total Protein Albumin Urine WBC (Auto) Urine Total Protein Digoxin Salicylates Acetaminophen 12/27/19 12/27/19 12/27/19 05:50 11:58 16:05 WBC RBC Hgb Hct MCV MCH MCHC RDW Plt Count Lymph % (Auto) Charles % (Auto) Eos % (Auto) Lymph # Charles # Eos # Seg Neutrophils % Monocytes % (Manual) Monocytes # (Manual) D-Dimer ABG pH 7.180 L* ABG pO2 73.6 L ABG HCO3 34.8 H ABG O2 Saturation 92.7 L ABG Base Excess 3.8 H ABG Hemoglobin 12.0 L Oxyhemoglobin 90.2 L Sodium Potassium Chloride Carbon Dioxide BUN Creatinine Glucose POC Glucose 224 H 218 H Lactic Acid Calcium Magnesium AST ALT Lactate Dehydrogenase Total Creatine Kinase C-Reactive Protein Total Protein Albumin Urine WBC (Auto) Urine Total Protein Digoxin Salicylates Acetaminophen 12/27/19 12/27/19 12/27/19 18:05 19:50 21:53 WBC RBC Hgb Hct MCV MCH MCHC RDW Plt Count Lymph % (Auto) Charles % (Auto) Eos % (Auto) Lymph # Charles # Eos # Seg Neutrophils % Monocytes % (Manual) Monocytes # (Manual) D-Dimer ABG pH 7.328 L ABG pO2 49.9 L ABG HCO3 33.3 H ABG O2 Saturation 87.1 L ABG Base Excess 5.7 H ABG Hemoglobin 11.2 L Oxyhemoglobin 84.8 L Sodium Potassium Chloride Carbon Dioxide BUN Creatinine Glucose POC Glucose 214 H 178 H Lactic Acid Calcium Magnesium AST ALT Lactate Dehydrogenase Total Creatine Kinase C-Reactive Protein Total Protein Albumin Urine WBC (Auto) Urine Total Protein Digoxin Salicylates Acetaminophen 12/28/19 12/28/19 12/28/19 00:42 04:37 04:37 WBC RBC Hgb 9.8 L Hct 33.5 L MCV MCH 25 L MCHC 29 L RDW 21.1 H Plt Count Lymph % (Auto) Charles % (Auto) Eos % (Auto) Lymph # Charles # Eos # Seg Neutrophils % Monocytes % (Manual) Monocytes # (Manual) D-Dimer ABG pH ABG pO2 ABG HCO3 ABG O2 Saturation ABG Base Excess ABG Hemoglobin Oxyhemoglobin Sodium 157 H Potassium 3.4 L Chloride 117.5 H Carbon Dioxide BUN Creatinine Glucose 193 H POC Glucose 157 H Lactic Acid Calcium Magnesium AST ALT Lactate Dehydrogenase Total Creatine Kinase C-Reactive Protein Total Protein Albumin Urine WBC (Auto) Urine Total Protein Digoxin Salicylates Acetaminophen 12/28/19 12/28/19 12/28/19 04:52 05:19 12:05 WBC RBC Hgb Hct MCV MCH MCHC RDW Plt Count Lymph % (Auto) Charles % (Auto) Eos % (Auto) Lymph # Charles # Eos # Seg Neutrophils % Monocytes % (Manual) Monocytes # (Manual) D-Dimer ABG pH ABG pO2 51.7 L ABG HCO3 28.7 H ABG O2 Saturation 89.9 L ABG Base Excess 4.1 H ABG Hemoglobin 9.7 L Oxyhemoglobin 87.7 L Sodium Potassium Chloride Carbon Dioxide BUN Creatinine Glucose POC Glucose 202 H 248 H Lactic Acid Calcium Magnesium AST ALT Lactate Dehydrogenase Total Creatine Kinase C-Reactive Protein Total Protein Albumin Urine WBC (Auto) Urine Total Protein Digoxin Salicylates Acetaminophen 12/28/19 12/28/19 12/28/19 18:11 21:15 23:22 WBC RBC Hgb Hct MCV MCH MCHC RDW Plt Count Lymph % (Auto) Charles % (Auto) Eos % (Auto) Lymph # Charles # Eos # Seg Neutrophils % Monocytes % (Manual) Monocytes # (Manual) D-Dimer ABG pH ABG pO2 ABG HCO3 ABG O2 Saturation ABG Base Excess ABG Hemoglobin Oxyhemoglobin Sodium Potassium Chloride Carbon Dioxide BUN Creatinine Glucose POC Glucose 226 H 217 H 227 H Lactic Acid Calcium Magnesium AST ALT Lactate Dehydrogenase Total Creatine Kinase C-Reactive Protein Total Protein Albumin Urine WBC (Auto) Urine Total Protein Digoxin Salicylates Acetaminophen 12/29/19 12/29/19 12/29/19 04:09 04:59 04:59 WBC 11.1 H RBC Hgb 9.3 L Hct 31.1 L MCV 81 L MCH 24 L MCHC 30 L RDW 19.9 H Plt Count Lymph % (Auto) Charles % (Auto) Eos % (Auto) Lymph # Charles # Eos # Seg Neutrophils % Monocytes % (Manual) Monocytes # (Manual) D-Dimer ABG pH 7.473 H ABG pO2 126.1 H ABG HCO3 29.2 H ABG O2 Saturation ABG Base Excess 5.1 H ABG Hemoglobin 8.4 L Oxyhemoglobin Sodium 157 H Potassium 3.2 L Chloride 118.2 H Carbon Dioxide BUN Creatinine 1.7 H Glucose 229 H POC Glucose Lactic Acid Calcium Magnesium AST ALT Lactate Dehydrogenase Total Creatine Kinase C-Reactive Protein Total Protein Albumin Urine WBC (Auto) Urine Total Protein Digoxin Salicylates Acetaminophen 12/29/19 12/29/19 12/29/19 05:15 12:13 17:59 WBC RBC Hgb Hct MCV MCH MCHC RDW Plt Count Lymph % (Auto) Charles % (Auto) Eos % (Auto) Lymph # Charles # Eos # Seg Neutrophils % Monocytes % (Manual) Monocytes # (Manual) D-Dimer ABG pH ABG pO2 ABG HCO3 ABG O2 Saturation ABG Base Excess ABG Hemoglobin Oxyhemoglobin Sodium Potassium Chloride Carbon Dioxide BUN Creatinine Glucose POC Glucose 221 H 392 H 365 H Lactic Acid Calcium Magnesium AST ALT Lactate Dehydrogenase Total Creatine Kinase C-Reactive Protein Total Protein Albumin Urine WBC (Auto) Urine Total Protein Digoxin Salicylates Acetaminophen 12/29/19 12/29/19 12/30/19 20:25 23:38 04:45 WBC RBC Hgb Hct MCV MCH MCHC RDW Plt Count Lymph % (Auto) Charles % (Auto) Eos % (Auto) Lymph # Charles # Eos # Seg Neutrophils % Monocytes % (Manual) Monocytes # (Manual) D-Dimer ABG pH 7.261 L 7.343 L ABG pO2 60.3 L 54.3 L ABG HCO3 32.1 H 30.9 H ABG O2 Saturation 87.6 L 88.3 L ABG Base Excess 3.7 H 4.0 H ABG Hemoglobin 9.7 L 11.6 L Oxyhemoglobin 85.2 L 86.0 L Sodium Potassium Chloride Carbon Dioxide BUN Creatinine Glucose POC Glucose 402 H Lactic Acid Calcium Magnesium AST ALT Lactate Dehydrogenase Total Creatine Kinase C-Reactive Protein Total Protein Albumin Urine WBC (Auto) Urine Total Protein Digoxin Salicylates Acetaminophen 06/25/20 06/25/20 06/25/20 05:06 05:06 05:06 WBC 11.7 H RBC Hgb 9.4 L Hct 32.4 L MCV 83 L MCH 24 L MCHC 29 L RDW 20.2 H Plt Count Lymph % (Auto) Charles % (Auto) Eos % (Auto) Lymph # Charles # Eos # Seg Neutrophils % Monocytes % (Manual) Monocytes # (Manual) D-Dimer ABG pH ABG pO2 ABG HCO3 ABG O2 Saturation ABG Base Excess ABG Hemoglobin Oxyhemoglobin Sodium 159 H Potassium 3.2 L Chloride 120.1 H Carbon Dioxide 31 H BUN Creatinine 1.9 H Glucose 404 H POC Glucose Lactic Acid Calcium Magnesium 2.60 H AST ALT Lactate Dehydrogenase Total Creatine Kinase C-Reactive Protein Total Protein Albumin Urine WBC (Auto) Urine Total Protein Digoxin Salicylates Acetaminophen 12/30/19 12/30/19 12/30/19 06:26 12:29 13:44 WBC RBC Hgb Hct MCV MCH MCHC RDW Plt Count Lymph % (Auto) Charles % (Auto) Eos % (Auto) Lymph # Charles # Eos # Seg Neutrophils % Monocytes % (Manual) Monocytes # (Manual) D-Dimer ABG pH ABG pO2 ABG HCO3 ABG O2 Saturation ABG Base Excess ABG Hemoglobin Oxyhemoglobin Sodium Potassium Chloride Carbon Dioxide BUN Creatinine Glucose POC Glucose 399 H 469 H > 500 H Lactic Acid Calcium Magnesium AST ALT Lactate Dehydrogenase Total Creatine Kinase C-Reactive Protein Total Protein Albumin Urine WBC (Auto) Urine Total Protein Digoxin Salicylates Acetaminophen 12/30/19 12/30/19 12/30/19 13:51 16:32 18:05 WBC RBC Hgb Hct MCV MCH MCHC RDW Plt Count Lymph % (Auto) Charles % (Auto) Eos % (Auto) Lymph # Charles # Eos # Seg Neutrophils % Monocytes % (Manual) Monocytes # (Manual) D-Dimer ABG pH ABG pO2 ABG HCO3 ABG O2 Saturation ABG Base Excess ABG Hemoglobin Oxyhemoglobin Sodium Potassium Chloride Carbon Dioxide BUN Creatinine Glucose POC Glucose > 500 H 445 H 429 H Lactic Acid Calcium Magnesium AST ALT Lactate Dehydrogenase Total Creatine Kinase C-Reactive Protein Total Protein Albumin Urine WBC (Auto) Urine Total Protein Digoxin Salicylates Acetaminophen 12/30/19 12/30/19 12/31/19 21:42 Unknown 00:00 WBC RBC Hgb Hct MCV MCH MCHC RDW Plt Count Lymph % (Auto) Charles % (Auto) Eos % (Auto) Lymph # Charles # Eos # Seg Neutrophils % Monocytes % (Manual) Monocytes # (Manual) D-Dimer ABG pH ABG pO2 ABG HCO3 ABG O2 Saturation ABG Base Excess ABG Hemoglobin Oxyhemoglobin Sodium Potassium Chloride Carbon Dioxide BUN Creatinine Glucose 498 H POC Glucose 371 H 452 H Lactic Acid Calcium Magnesium AST ALT Lactate Dehydrogenase Total Creatine Kinase C-Reactive Protein Total Protein Albumin Urine WBC (Auto) Urine Total Protein Digoxin Salicylates Acetaminophen 12/31/19 12/31/19 12/31/19 04:31 05:42 08:01 WBC RBC Hgb Hct MCV MCH MCHC RDW Plt Count Lymph % (Auto) Charles % (Auto) Eos % (Auto) Lymph # Charles # Eos # Seg Neutrophils % Monocytes % (Manual) Monocytes # (Manual) D-Dimer ABG pH 7.251 L ABG pO2 62.4 L ABG HCO3 31.1 H ABG O2 Saturation 88.7 L ABG Base Excess ABG Hemoglobin 8.7 L Oxyhemoglobin 86.4 L Sodium Potassium Chloride Carbon Dioxide BUN Creatinine Glucose POC Glucose 443 H 443 H Lactic Acid Calcium Magnesium AST ALT Lactate Dehydrogenase Total Creatine Kinase C-Reactive Protein Total Protein Albumin Urine WBC (Auto) Urine Total Protein Digoxin Salicylates Acetaminophen 12/31/19 12/31/19 12/31/19 09:08 10:00 11:50 WBC RBC Hgb Hct MCV MCH MCHC RDW Plt Count Lymph % (Auto) Charles % (Auto) Eos % (Auto) Lymph # Charles # Eos # Seg Neutrophils % Monocytes % (Manual) Monocytes # (Manual) D-Dimer ABG pH 7.325 L ABG pO2 97.2 H ABG HCO3 30.1 H ABG O2 Saturation ABG Base Excess 3.4 H ABG Hemoglobin 8.3 L Oxyhemoglobin 94.7 L Sodium 151 H D Potassium 3.2 L Chloride 113.0 H Carbon Dioxide BUN 23 H Creatinine 1.8 H Glucose 373 H POC Glucose 465 H Lactic Acid Calcium Magnesium AST ALT Lactate Dehydrogenase Total Creatine Kinase C-Reactive Protein Total Protein Albumin Urine WBC (Auto) Urine Total Protein Digoxin Salicylates Acetaminophen 12/31/19 12/31/19 12/31/19 12:25 13:33 18:30 WBC RBC Hgb Hct MCV MCH MCHC RDW Plt Count Lymph % (Auto) Charles % (Auto) Eos % (Auto) Lymph # Charles # Eos # Seg Neutrophils % Monocytes % (Manual) Monocytes # (Manual) D-Dimer ABG pH ABG pO2 ABG HCO3 ABG O2 Saturation ABG Base Excess ABG Hemoglobin Oxyhemoglobin Sodium Potassium Chloride Carbon Dioxide BUN Creatinine Glucose POC Glucose 379 H 311 H 349 H Lactic Acid Calcium Magnesium AST ALT Lactate Dehydrogenase Total Creatine Kinase C-Reactive Protein Total Protein Albumin Urine WBC (Auto) Urine Total Protein Digoxin Salicylates Acetaminophen 12/31/19 12/31/19 01/01/20 22:29 23:30 02:58 WBC RBC Hgb Hct MCV MCH MCHC RDW Plt Count Lymph % (Auto) Charles % (Auto) Eos % (Auto) Lymph # Charles # Eos # Seg Neutrophils % Monocytes % (Manual) Monocytes # (Manual) D-Dimer ABG pH ABG pO2 ABG HCO3 ABG O2 Saturation ABG Base Excess ABG Hemoglobin Oxyhemoglobin Sodium Potassium Chloride Carbon Dioxide BUN Creatinine Glucose POC Glucose 256 H 266 H 248 H Lactic Acid Calcium Magnesium AST ALT Lactate Dehydrogenase Total Creatine Kinase C-Reactive Protein Total Protein Albumin Urine WBC (Auto) Urine Total Protein Digoxin Salicylates Acetaminophen 01/01/20 01/01/20 01/01/20 04:19 06:56 10:52 WBC RBC Hgb Hct MCV MCH MCHC RDW Plt Count Lymph % (Auto) Charles % (Auto) Eos % (Auto) Lymph # Charles # Eos # Seg Neutrophils % Monocytes % (Manual) Monocytes # (Manual) D-Dimer ABG pH ABG pO2 90.7 H ABG HCO3 29.1 H ABG O2 Saturation ABG Base Excess 3.8 H ABG Hemoglobin 8.1 L Oxyhemoglobin 94.5 L Sodium Potassium Chloride Carbon Dioxide BUN Creatinine Glucose POC Glucose 303 H 244 H Lactic Acid Calcium Magnesium AST ALT Lactate Dehydrogenase Total Creatine Kinase C-Reactive Protein Total Protein Albumin Urine WBC (Auto) Urine Total Protein Digoxin Salicylates Acetaminophen 01/01/20 01/01/20 01/01/20 13:39 14:49 18:42 WBC RBC Hgb Hct MCV MCH MCHC RDW Plt Count Lymph % (Auto) Charles % (Auto) Eos % (Auto) Lymph # Charles # Eos # Seg Neutrophils % Monocytes % (Manual) Monocytes # (Manual) D-Dimer ABG pH ABG pO2 ABG HCO3 ABG O2 Saturation ABG Base Excess ABG Hemoglobin Oxyhemoglobin Sodium 147 H Potassium Chloride 107.1 H Carbon Dioxide BUN 28 H Creatinine Glucose 207 H POC Glucose 263 H 188 H Lactic Acid Calcium Magnesium AST ALT Lactate Dehydrogenase Total Creatine Kinase C-Reactive Protein Total Protein Albumin Urine WBC (Auto) Urine Total Protein Digoxin Salicylates Acetaminophen 01/02/20 01/02/20 01/02/20 02:22 03:58 05:00 WBC RBC 3.31 L Hgb 8.0 L Hct 26.9 L MCV 81 L MCH 24 L MCHC 30 L RDW 19.4 H Plt Count Lymph % (Auto) Charles % (Auto) 9.4 H Eos % (Auto) 11.2 H Lymph # Charles # Eos # 0.8 H Seg Neutrophils % Monocytes % (Manual) Monocytes # (Manual) D-Dimer ABG pH ABG pO2 63.0 L ABG HCO3 31.6 H ABG O2 Saturation 91.8 L ABG Base Excess 5.5 H ABG Hemoglobin 8.6 L Oxyhemoglobin 89.6 L Sodium Potassium Chloride Carbon Dioxide BUN Creatinine Glucose POC Glucose 196 H Lactic Acid Calcium Magnesium AST ALT Lactate Dehydrogenase Total Creatine Kinase C-Reactive Protein Total Protein Albumin Urine WBC (Auto) Urine Total Protein Digoxin Salicylates Acetaminophen 01/02/20 01/02/20 01/02/20 05:40 10:26 13:57 WBC RBC Hgb Hct MCV MCH MCHC RDW Plt Count Lymph % (Auto) Charles % (Auto) Eos % (Auto) Lymph # Charles # Eos # Seg Neutrophils % Monocytes % (Manual) Monocytes # (Manual) D-Dimer ABG pH ABG pO2 ABG HCO3 ABG O2 Saturation ABG Base Excess ABG Hemoglobin Oxyhemoglobin Sodium Potassium Chloride Carbon Dioxide BUN Creatinine Glucose POC Glucose 189 H 157 H 178 H Lactic Acid Calcium Magnesium AST ALT Lactate Dehydrogenase Total Creatine Kinase C-Reactive Protein Total Protein Albumin Urine WBC (Auto) Urine Total Protein Digoxin Salicylates Acetaminophen 01/02/20 01/03/20 01/03/20 21:27 03:12 05:26 WBC RBC Hgb Hct MCV MCH MCHC RDW Plt Count Lymph % (Auto) Charles % (Auto) Eos % (Auto) Lymph # Charles # Eos # Seg Neutrophils % Monocytes % (Manual) Monocytes # (Manual) D-Dimer ABG pH 7.473 H ABG pO2 109.6 H ABG HCO3 30.4 H ABG O2 Saturation ABG Base Excess 6.2 H ABG Hemoglobin 9.9 L Oxyhemoglobin Sodium Potassium Chloride Carbon Dioxide BUN Creatinine Glucose POC Glucose 131 H 133 H Lactic Acid Calcium Magnesium AST ALT Lactate Dehydrogenase Total Creatine Kinase C-Reactive Protein Total Protein Albumin Urine WBC (Auto) Urine Total Protein Digoxin Salicylates Acetaminophen 01/03/20 01/03/20 01/03/20 05:40 05:40 15:01 WBC RBC 3.45 L Hgb 8.3 L Hct 27.3 L MCV 79 L MCH 24 L MCHC 30 L RDW 19.3 H Plt Count Lymph % (Auto) Charles % (Auto) Eos % (Auto) Lymph # Charles # Eos # Seg Neutrophils % Monocytes % (Manual) Monocytes # (Manual) D-Dimer ABG pH ABG pO2 ABG HCO3 ABG O2 Saturation ABG Base Excess ABG Hemoglobin Oxyhemoglobin Sodium 151 H Potassium Chloride 111.8 H Carbon Dioxide 31 H BUN 37 H Creatinine 1.8 H Glucose 187 H POC Glucose 164 H Lactic Acid Calcium Magnesium AST ALT Lactate Dehydrogenase Total Creatine Kinase C-Reactive Protein Total Protein Albumin Urine WBC (Auto) Urine Total Protein Digoxin Salicylates Acetaminophen 01/03/20 01/03/20 01/04/20 18:15 22:45 02:11 WBC RBC Hgb Hct MCV MCH MCHC RDW Plt Count Lymph % (Auto) Charles % (Auto) Eos % (Auto) Lymph # Charles # Eos # Seg Neutrophils % Monocytes % (Manual) Monocytes # (Manual) D-Dimer ABG pH ABG pO2 ABG HCO3 ABG O2 Saturation ABG Base Excess ABG Hemoglobin Oxyhemoglobin Sodium Potassium Chloride Carbon Dioxide BUN Creatinine Glucose POC Glucose 184 H 176 H 206 H Lactic Acid Calcium Magnesium AST ALT Lactate Dehydrogenase Total Creatine Kinase C-Reactive Protein Total Protein Albumin Urine WBC (Auto) Urine Total Protein Digoxin Salicylates Acetaminophen 01/04/20 01/04/20 01/04/20 03:16 05:15 10:53 WBC RBC Hgb Hct MCV MCH MCHC RDW Plt Count Lymph % (Auto) Charles % (Auto) Eos % (Auto) Lymph # Charles # Eos # Seg Neutrophils % Monocytes % (Manual) Monocytes # (Manual) D-Dimer ABG pH 7.282 L ABG pO2 73.2 L ABG HCO3 ABG O2 Saturation 94.5 L ABG Base Excess -6.4 L ABG Hemoglobin 10.9 L Oxyhemoglobin 92.1 L Sodium Potassium Chloride Carbon Dioxide BUN Creatinine Glucose POC Glucose 139 H 224 H Lactic Acid Calcium Magnesium AST ALT Lactate Dehydrogenase Total Creatine Kinase C-Reactive Protein Total Protein Albumin Urine WBC (Auto) Urine Total Protein Digoxin Salicylates Acetaminophen 01/04/20 01/04/20 01/04/20 15:47 18:05 22:07 WBC RBC Hgb Hct MCV MCH MCHC RDW Plt Count Lymph % (Auto) Charles % (Auto) Eos % (Auto) Lymph # Charles # Eos # Seg Neutrophils % Monocytes % (Manual) Monocytes # (Manual) D-Dimer ABG pH ABG pO2 ABG HCO3 ABG O2 Saturation ABG Base Excess ABG Hemoglobin Oxyhemoglobin Sodium Potassium Chloride Carbon Dioxide BUN Creatinine Glucose POC Glucose 135 H 117 H 108 H Lactic Acid Calcium Magnesium AST ALT Lactate Dehydrogenase Total Creatine Kinase C-Reactive Protein Total Protein Albumin Urine WBC (Auto) Urine Total Protein Digoxin Salicylates Acetaminophen 01/04/20 01/04/20 01/05/20 Unknown Unknown 02:04 WBC RBC 3.46 L Hgb 8.2 L Hct 27.8 L MCV 80 L MCH 24 L MCHC 30 L RDW 19.7 H Plt Count Lymph % (Auto) Charles % (Auto) Eos % (Auto) Lymph # Charles # Eos # Seg Neutrophils % Monocytes % (Manual) Monocytes # (Manual) D-Dimer ABG pH ABG pO2 ABG HCO3 ABG O2 Saturation ABG Base Excess ABG Hemoglobin Oxyhemoglobin Sodium 150 H Potassium Chloride 110 H Carbon Dioxide 32 H BUN 32 H Creatinine Glucose 309 H POC Glucose 140 H Lactic Acid Calcium Magnesium AST ALT Lactate Dehydrogenase Total Creatine Kinase C-Reactive Protein Total Protein Albumin Urine WBC (Auto) Urine Total Protein Digoxin Salicylates Acetaminophen 01/05/20 01/05/20 01/05/20 03:31 03:36 03:36 WBC RBC 3.46 L Hgb 8.4 L Hct 26.9 L MCV 78 L MCH 24 L MCHC 31 L RDW 19.0 H Plt Count Lymph % (Auto) Charles % (Auto) Eos % (Auto) Lymph # Charles # Eos # Seg Neutrophils % Monocytes % (Manual) Monocytes # (Manual) D-Dimer ABG pH 7.454 H ABG pO2 113.0 H ABG HCO3 30.5 H ABG O2 Saturation ABG Base Excess 6.0 H ABG Hemoglobin 8.5 L Oxyhemoglobin Sodium 150 H Potassium Chloride 110.3 H Carbon Dioxide BUN 30 H Creatinine Glucose 148 H POC Glucose Lactic Acid Calcium Magnesium AST ALT Lactate Dehydrogenase Total Creatine Kinase C-Reactive Protein Total Protein Albumin Urine WBC (Auto) Urine Total Protein Digoxin Salicylates Acetaminophen 01/05/20 01/05/20 01/05/20 05:21 09:56 11:45 WBC RBC Hgb Hct MCV MCH MCHC RDW Plt Count Lymph % (Auto) [place] % (Auto) Eos % (Auto) Lymph # Charles # Eos # Seg Neutrophils % Monocytes % (Manual) Monocytes # (Manual) D-Dimer ABG pH ABG pO2 ABG HCO3 ABG O2 Saturation ABG Base Excess ABG Hemoglobin Oxyhemoglobin Sodium Potassium Chloride Carbon Dioxide BUN Creatinine Glucose POC Glucose 142 H 129 H 174 H Lactic Acid Calcium Magnesium AST ALT Lactate Dehydrogenase Total Creatine Kinase C-Reactive Protein Total Protein Albumin Urine WBC (Auto) Urine Total Protein Digoxin Salicylates Acetaminophen 01/05/20 01/05/20 01/05/20 13:30 14:00 17:41 WBC RBC Hgb Hct MCV MCH MCHC RDW Plt Count Lymph % (Auto) [place] % (Auto) Eos % (Auto) Lymph # Charles # Eos # Seg Neutrophils % Monocytes % (Manual) Monocytes # (Manual) D-Dimer ABG pH ABG pO2 ABG HCO3 ABG O2 Saturation ABG Base Excess ABG Hemoglobin Oxyhemoglobin Sodium Potassium Chloride Carbon Dioxide BUN 26 H Creatinine 1.6 H Glucose 302 H POC Glucose 168 H 136 H Lactic Acid Calcium Magnesium AST ALT Lactate Dehydrogenase Total Creatine Kinase C-Reactive Protein Total Protein Albumin Urine WBC (Auto) Urine Total Protein Digoxin Salicylates Acetaminophen 01/05/20 01/05/20 01/06/20 20:38 23:32 03:50 WBC RBC Hgb Hct MCV MCH MCHC RDW Plt Count Lymph % (Auto) [place] % (Auto) Eos % (Auto) Lymph # Charles # Eos # Seg Neutrophils % Monocytes % (Manual) Monocytes # (Manual) D-Dimer ABG pH ABG pO2 76.2 L ABG HCO3 30.1 H ABG O2 Saturation ABG Base Excess 5.1 H ABG Hemoglobin 9.5 L Oxyhemoglobin 93.8 L Sodium Potassium Chloride Carbon Dioxide BUN Creatinine Glucose POC Glucose 124 H 163 H Lactic Acid Calcium Magnesium AST ALT Lactate Dehydrogenase Total Creatine Kinase C-Reactive Protein Total Protein Albumin Urine WBC (Auto) Urine Total Protein Digoxin Salicylates Acetaminophen 01/06/20 01/06/20 01/06/20 04:09 04:58 04:58 WBC RBC Hgb 8.8 L Hct 28.7 L MCV 78 L MCH 24 L MCHC 31 L RDW 18.7 H Plt Count 522 H Lymph % (Auto) Charles % (Auto) Eos % (Auto) Lymph # Charles # Eos # Seg Neutrophils % Monocytes % (Manual) Monocytes # (Manual) D-Dimer ABG pH ABG pO2 ABG HCO3 ABG O2 Saturation ABG Base Excess ABG Hemoglobin Oxyhemoglobin Sodium 150 H D Potassium Chloride 109.3 H Carbon Dioxide BUN 25 H Creatinine Glucose 55 L POC Glucose 65 L Lactic Acid Calcium Magnesium AST ALT Lactate Dehydrogenase Total Creatine Kinase C-Reactive Protein Total Protein Albumin Urine WBC (Auto) Urine Total Protein Digoxin Salicylates Acetaminophen 01/06/20 01/06/20 01/06/20 05:01 14:10 17:49 WBC RBC Hgb Hct MCV MCH MCHC RDW Plt Count Lymph % (Auto) [place] % (Auto) Eos % (Auto) Lymph # Charles # Eos # Seg Neutrophils % Monocytes % (Manual) Monocytes # (Manual) D-Dimer ABG pH ABG pO2 ABG HCO3 ABG O2 Saturation ABG Base Excess ABG Hemoglobin Oxyhemoglobin Sodium Potassium Chloride Carbon Dioxide BUN Creatinine Glucose POC Glucose 60 L 119 H 131 H Lactic Acid Calcium Magnesium AST ALT Lactate Dehydrogenase Total Creatine Kinase C-Reactive Protein Total Protein Albumin Urine WBC (Auto) Urine Total Protein Digoxin Salicylates Acetaminophen 01/06/20 01/07/20 01/07/20 21:08 02:11 05:19 WBC RBC Hgb Hct MCV MCH MCHC RDW Plt Count Lymph % (Auto) [place] % (Auto) Eos % (Auto) Lymph # Charles # Eos # Seg Neutrophils % Monocytes % (Manual) Monocytes # (Manual) D-Dimer ABG pH ABG pO2 ABG HCO3 ABG O2 Saturation ABG Base Excess ABG Hemoglobin Oxyhemoglobin Sodium Potassium Chloride Carbon Dioxide BUN Creatinine Glucose POC Glucose 136 H 209 H 182 H Lactic Acid Calcium Magnesium AST ALT Lactate Dehydrogenase Total Creatine Kinase C-Reactive Protein Total Protein Albumin Urine WBC (Auto) Urine Total Protein Digoxin Salicylates Acetaminophen 01/07/20 01/07/20 01/07/20 11:40 11:52 13:49 WBC RBC Hgb Hct MCV MCH MCHC RDW Plt Count Lymph % (Auto) [place] % (Auto) Eos % (Auto) Lymph # Charles # Eos # Seg Neutrophils % Monocytes % (Manual) Monocytes # (Manual) D-Dimer ABG pH ABG pO2 ABG HCO3 ABG O2 Saturation ABG Base Excess ABG Hemoglobin Oxyhemoglobin Sodium Potassium Chloride Carbon Dioxide BUN 21 H Creatinine Glucose 190 H POC Glucose 180 H 184 H Lactic Acid Calcium Magnesium AST ALT Lactate Dehydrogenase Total Creatine Kinase C-Reactive Protein Total Protein Albumin Urine WBC (Auto) Urine Total Protein Digoxin Salicylates Acetaminophen 01/07/20 01/07/20 01/07/20 17:54 22:19 Unknown WBC RBC Hgb Hct MCV MCH MCHC RDW Plt Count Lymph % (Auto) [place] % (Auto) Eos % (Auto) Lymph # Charles # Eos # Seg Neutrophils % Monocytes % (Manual) Monocytes # (Manual) D-Dimer ABG pH ABG pO2 ABG HCO3 28.9 H ABG O2 Saturation ABG Base Excess 4.0 H ABG Hemoglobin 11.0 L Oxyhemoglobin 94.2 L Sodium Potassium Chloride Carbon Dioxide BUN Creatinine Glucose POC Glucose 190 H 299 H Lactic Acid Calcium Magnesium AST ALT Lactate Dehydrogenase Total Creatine Kinase C-Reactive Protein Total Protein Albumin Urine WBC (Auto) Urine Total Protein Digoxin Salicylates Acetaminophen 01/08/20 01/08/20 01/08/20 02:45 05:26 05:27 WBC RBC Hgb Hct MCV MCH MCHC RDW Plt Count Lymph % (Auto) [place] % (Auto) Eos % (Auto) Lymph # Charles # Eos # Seg Neutrophils % Monocytes % (Manual) Monocytes # (Manual) D-Dimer ABG pH ABG pO2 67.8 L ABG HCO3 26.5 H ABG O2 Saturation 93.2 L ABG Base Excess ABG Hemoglobin 8.1 L Oxyhemoglobin 90.4 L Sodium Potassium Chloride Carbon Dioxide BUN Creatinine Glucose POC Glucose 245 H 346 H Lactic Acid Calcium Magnesium AST ALT Lactate Dehydrogenase Total Creatine Kinase C-Reactive Protein Total Protein Albumin Urine WBC (Auto) Urine Total Protein Digoxin Salicylates Acetaminophen 01/08/20 01/08/20 01/08/20 08:03 08:03 10:33 WBC RBC 3.14 L Hgb 7.6 L Hct 24.3 L MCV 77 L MCH 24 L MCHC 31 L RDW 18.3 H Plt Count 509 H Lymph % (Auto) Charles % (Auto) Eos % (Auto) Lymph # Charles # Eos # Seg Neutrophils % Monocytes % (Manual) Monocytes # (Manual) D-Dimer ABG pH ABG pO2 ABG HCO3 ABG O2 Saturation ABG Base Excess ABG Hemoglobin Oxyhemoglobin Sodium 132 L D Potassium Chloride 94.7 L Carbon Dioxide BUN 22 H Creatinine Glucose 284 H POC Glucose 275 H Lactic Acid Calcium Magnesium AST ALT Lactate Dehydrogenase Total Creatine Kinase C-Reactive Protein Total Protein Albumin Urine WBC (Auto) Urine Total Protein Digoxin Salicylates Acetaminophen 01/08/20 01/08/20 01/08/20 13:34 17:24 21:49 WBC RBC Hgb Hct MCV MCH MCHC RDW Plt Count Lymph % (Auto) [place] % (Auto) Eos % (Auto) Lymph # Charles # Eos # Seg Neutrophils % Monocytes % (Manual) Monocytes # (Manual) D-Dimer ABG pH ABG pO2 ABG HCO3 ABG O2 Saturation ABG Base Excess ABG Hemoglobin Oxyhemoglobin Sodium Potassium Chloride Carbon Dioxide BUN Creatinine Glucose POC Glucose 273 H 294 H 265 H Lactic Acid Calcium Magnesium AST ALT Lactate Dehydrogenase Total Creatine Kinase C-Reactive Protein Total Protein Albumin Urine WBC (Auto) Urine Total Protein Digoxin Salicylates Acetaminophen 01/09/20 01/09/20 01/09/20 00:13 03:45 05:55 WBC RBC Hgb Hct MCV MCH MCHC RDW Plt Count Lymph % (Auto) [place] % (Auto) Eos % (Auto) Lymph # Charles # Eos # Seg Neutrophils % Monocytes % (Manual) Monocytes # (Manual) D-Dimer ABG pH ABG pO2 ABG HCO3 ABG O2 Saturation ABG Base Excess ABG Hemoglobin Oxyhemoglobin Sodium Potassium Chloride Carbon Dioxide BUN Creatinine Glucose POC Glucose 251 H 346 H 300 H Lactic Acid Calcium Magnesium AST ALT Lactate Dehydrogenase Total Creatine Kinase C-Reactive Protein Total Protein Albumin Urine WBC (Auto) Urine Total Protein Digoxin Salicylates Acetaminophen 01/09/20 01/09/20 01/09/20 08:15 09:31 12:04 WBC RBC Hgb Hct MCV MCH MCHC RDW Plt Count Lymph % (Auto) Charles % (Auto) Eos % (Auto) Lymph # Charles # Eos # Seg Neutrophils % Monocytes % (Manual) Monocytes # (Manual) D-Dimer ABG pH ABG pO2 ABG HCO3 ABG O2 Saturation ABG Base Excess ABG Hemoglobin Oxyhemoglobin Sodium 134 L Potassium Chloride 97.6 L Carbon Dioxide BUN 25 H Creatinine Glucose 240 H POC Glucose 191 H 230 H Lactic Acid Calcium Magnesium AST ALT Lactate Dehydrogenase Total Creatine Kinase C-Reactive Protein Total Protein Albumin Urine WBC (Auto) Urine Total Protein Digoxin Salicylates Acetaminophen 01/09/20 01/09/20 01/09/20 13:46 17:31 22:28 WBC RBC Hgb Hct MCV MCH MCHC RDW Plt Count Lymph % (Auto) Charles % (Auto) Eos % (Auto) Lymph # Charles # Eos # Seg Neutrophils % Monocytes % (Manual) Monocytes # (Manual) D-Dimer ABG pH ABG pO2 ABG HCO3 ABG O2 Saturation ABG Base Excess ABG Hemoglobin Oxyhemoglobin Sodium Potassium Chloride Carbon Dioxide BUN Creatinine Glucose POC Glucose 211 H 260 H 223 H Lactic Acid Calcium Magnesium AST ALT Lactate Dehydrogenase Total Creatine Kinase C-Reactive Protein Total Protein Albumin Urine WBC (Auto) Urine Total Protein Digoxin Salicylates Acetaminophen 01/10/20 01/10/20 01/10/20 02:16 04:20 05:55 WBC RBC Hgb Hct MCV MCH MCHC RDW Plt Count Lymph % (Auto) Charles % (Auto) Eos % (Auto) Lymph # Charles # Eos # Seg Neutrophils % Monocytes % (Manual) Monocytes # (Manual) D-Dimer ABG pH ABG pO2 95.3 H ABG HCO3 27.8 H ABG O2 Saturation ABG Base Excess ABG Hemoglobin 8.3 L Oxyhemoglobin Sodium Potassium Chloride Carbon Dioxide BUN Creatinine Glucose POC Glucose 219 H 245 H Lactic Acid Calcium Magnesium AST ALT Lactate Dehydrogenase Total Creatine Kinase C-Reactive Protein Total Protein Albumin Urine WBC (Auto) Urine Total Protein Digoxin Salicylates Acetaminophen 01/10/20 01/10/20 01/10/20 10:38 15:08 15:45 WBC RBC Hgb Hct MCV MCH MCHC RDW Plt Count Lymph % (Auto) Charles % (Auto) Eos % (Auto) Lymph # Charles # Eos # Seg Neutrophils % Monocytes % (Manual) Monocytes # (Manual) D-Dimer ABG pH ABG pO2 ABG HCO3 ABG O2 Saturation ABG Base Excess ABG Hemoglobin Oxyhemoglobin Sodium Potassium Chloride Carbon Dioxide BUN Creatinine Glucose POC Glucose 268 H 246 H 238 H Lactic Acid Calcium Magnesium AST ALT Lactate Dehydrogenase Total Creatine Kinase C-Reactive Protein Total Protein Albumin Urine WBC (Auto) Urine Total Protein Digoxin Salicylates Acetaminophen 01/10/20 01/10/20 01/10/20 18:00 21:09 22:48 WBC RBC Hgb Hct MCV MCH MCHC RDW Plt Count Lymph % (Auto) Charles % (Auto) Eos % (Auto) Lymph # Charles # Eos # Seg Neutrophils % Monocytes % (Manual) Monocytes # (Manual) D-Dimer ABG pH ABG pO2 ABG HCO3 ABG O2 Saturation ABG Base Excess ABG Hemoglobin Oxyhemoglobin Sodium Potassium Chloride Carbon Dioxide BUN Creatinine Glucose POC Glucose 187 H 176 H 189 H Lactic Acid Calcium Magnesium AST ALT Lactate Dehydrogenase Total Creatine Kinase C-Reactive Protein Total Protein Albumin Urine WBC (Auto) Urine Total Protein Digoxin Salicylates Acetaminophen 01/11/20 01/11/20 01/11/20 03:07 05:45 05:45 WBC RBC 3.15 L Hgb 7.7 L Hct 24.9 L MCV 79 L MCH 24 L MCHC 31 L RDW 18.7 H Plt Count 667 H Lymph % (Auto) Charles % (Auto) Eos % (Auto) Lymph # Charles # Eos # Seg Neutrophils % Monocytes % (Manual) Monocytes # (Manual) D-Dimer ABG pH ABG pO2 ABG HCO3 ABG O2 Saturation ABG Base Excess ABG Hemoglobin Oxyhemoglobin Sodium 148 H D Potassium 5.1 H Chloride 111.9 H Carbon Dioxide BUN 26 H Creatinine Glucose 236 H POC Glucose 253 H Lactic Acid Calcium Magnesium AST 67 H ALT Lactate Dehydrogenase Total Creatine Kinase C-Reactive Protein Total Protein 5.9 L Albumin 2.8 L Urine WBC (Auto) Urine Total Protein Digoxin Salicylates Acetaminophen 01/11/20 01/11/20 01/11/20 06:10 12:59 14:22 WBC RBC Hgb Hct MCV MCH MCHC RDW Plt Count Lymph % (Auto) Charles % (Auto) Eos % (Auto) Lymph # Charles # Eos # Seg Neutrophils % Monocytes % (Manual) Monocytes # (Manual) D-Dimer ABG pH ABG pO2 ABG HCO3 ABG O2 Saturation ABG Base Excess ABG Hemoglobin Oxyhemoglobin Sodium Potassium Chloride Carbon Dioxide BUN Creatinine Glucose POC Glucose 261 H 234 H 220 H Lactic Acid Calcium Magnesium AST ALT Lactate Dehydrogenase Total Creatine Kinase C-Reactive Protein Total Protein Albumin Urine WBC (Auto) Urine Total Protein Digoxin Salicylates Acetaminophen 01/11/20 01/11/20 01/12/20 17:18 21:20 00:45 WBC RBC Hgb Hct MCV MCH MCHC RDW Plt Count Lymph % (Auto) Charles % (Auto) Eos % (Auto) Lymph # Charles # Eos # Seg Neutrophils % Monocytes % (Manual) Monocytes # (Manual) D-Dimer ABG pH ABG pO2 ABG HCO3 ABG O2 Saturation ABG Base Excess ABG Hemoglobin Oxyhemoglobin Sodium Potassium Chloride Carbon Dioxide BUN Creatinine Glucose POC Glucose 264 H 299 H 289 H Lactic Acid Calcium Magnesium AST ALT Lactate Dehydrogenase Total Creatine Kinase C-Reactive Protein Total Protein Albumin Urine WBC (Auto) Urine Total Protein Digoxin Salicylates Acetaminophen 01/12/20 01/12/20 01/12/20 04:35 06:10 11:29 WBC RBC Hgb Hct MCV MCH MCHC RDW Plt Count Lymph % (Auto) Charles % (Auto) Eos % (Auto) Lymph # Charles # Eos # Seg Neutrophils % Monocytes % (Manual) Monocytes # (Manual) D-Dimer ABG pH ABG pO2 ABG HCO3 ABG O2 Saturation ABG Base Excess ABG Hemoglobin Oxyhemoglobin Sodium Potassium Chloride Carbon Dioxide BUN Creatinine Glucose POC Glucose 187 H 194 H 213 H Lactic Acid Calcium Magnesium AST ALT Lactate Dehydrogenase Total Creatine Kinase C-Reactive Protein Total Protein Albumin Urine WBC (Auto) Urine Total Protein Digoxin Salicylates Acetaminophen Allied health notes reviewed: nursing
[2020-01-12] MEDS: POLYETHYLENE GLYCOL 3350 17 GM POWDER PO SCH (23:03)
[2020-01-12] MEDS: DOPamine/D5W 800 MG/250 ML 800 MG/250 ML BAG IV SCH (23:03)
[2020-01-13] MEDS: INSULIN LISPRO 100 UNIT/ML SUB-Q SCH ×6 (02:22→22:23)
[2020-01-13] MEDS: fentaNYL DRIP Premix 2,000 MCG/100 ML BAG IV SCH ×4 (02:26→21:09)
[2020-01-13] MEDS: LEVOTHYROXINE 88 MCG TAB PO SCH (06:01)
[2020-01-13 06:33] LABS: Basophils # (Auto) 0.2 K/mm3 (0.0-0.1); Basophils % (Auto) 1.9 % (0.0-1.8); Eosinophils # (Auto) 0.4 K/mm3 (0.0-0.4); Eosinophils % (Auto) 3.9 % (0.0-4.3); Hemoglobin 8.1 gm/dl (11.8-15.2); Lymphocytes # (Auto) 2.1 K/mm3 (1.2-5.4); Lymphocytes % (Auto) 20.2 % (13.4-35.0); Monocytes # (Auto) 1.3 K/mm3 (0.0-0.8); Monocytes % (Auto) 12.7 % (0.0-7.3)
[2020-01-13 06:41] LABS: BUN/Creatinine Ratio 35; Blood Urea Nitrogen 28 mg/dL (9-20); Calcium 8.4 mg/dL (8.4-10.2); Hemolysis Index 0
[2020-01-13 06:46] LABS: Hematocrit 28.4 % (35.5-45.6); Mean Corpuscular HGB Conc 29 % (32-34); Mean Corpuscular Volume 84 fl (84-94); Platelet Count 713 K/mm3 (140-440); Red Blood Count 3.39 M/mm3 (3.65-5.03); Red Cell Distribution Width 19.9 % (13.2-15.2)
[2020-01-13] MEDS: IPRATROPIUM/ALBUTEROL SULFATE 3 ML AMPUL.NEB IH SCH ×3 (09:03→20:19)
[2020-01-13] MEDS: INSULIN GLARGINE 100 UNITS/ML SUB-Q SCH ×2 (10:23→22:21)
[2020-01-13] MEDS: FAMOTIDINE 20 MG TAB PO SCH ×2 (10:25→22:21)
[2020-01-13] MEDS: HEPARIN 5,000 UNIT/1 ML VIAL SUB-Q SCH ×2 (10:25→22:21)
[2020-01-13] MEDS: DOCUSATE SODIUM 100 MG/10 ML ORAL LIQD PO SCH ×2 (10:25→22:21)
[2020-01-13] MEDS: ASPIRIN 81 MG TAB CHEW PO SCH (10:25)
[2020-01-13] MEDS: FOLIC ACID 1 MG TAB PO SCH (10:25)
--- NOTE | 2020-01-13 11:36 | Progress Note ---
Assessment and Plan Sinus bradycardia is uncertain echo: LVEF 45-50% TSH 2.3 A persistently elevated vagal tone or vasodepressor reaction is a possible etiology, versus underlying conduction system disease. Pneumonia negative COVID PCR x 2 Acute Respiratory failure Acute kidney injury -resolved Positive MRSA-sputum Anemia Avoid AV estella blocking agents. Continue telemetry monitoring. Atropine to be used as needed for heart rate below 40. Further cardiac management including device therapies will depend on clinical course. Subjective Date of service: 01/13/20 Principal diagnosis: Ac. Hypoxemic Resp Failure; Septic Shock; Magdiel. PNA; PUI COVID-19; CHF; JOE Interval history: Patient is awake but remains intubated and on low dose dopamine. Sinus bradycardia, rate in the 50s on telemetry. Objective Vital Signs Temp Pulse Pulse Pulse Resp Resp BP 01/13/20 09:30 63 17 113/57 01/13/20 09:15 64 20 121/69 01/13/20 09:02 74 79 16 117/64 01/13/20 09:00 58 L 14 153/103 01/13/20 08:45 69 15 153/103 01/13/20 08:30 56 L 17 144/71 01/13/20 08:16 54 L 12 132/64 01/13/20 08:00 98.3 F 63 59 L 20 147/69 01/13/20 07:46 64 14 124/68 01/13/20 07:30 70 16 165/80 01/13/20 07:16 67 14 134/56 01/13/20 07:00 86 14 134/56 01/13/20 06:45 82 15 134/56 01/13/20 06:30 58 L 14 134/65 01/13/20 06:16 63 21 124/67 01/13/20 06:00 59 L 14 124/67 01/13/20 05:45 51 L 14 114/59 01/13/20 05:30 54 L 14 112/57 01/13/20 05:15 53 L 13 112/58 01/13/20 05:00 55 L 13 116/61 01/13/20 04:45 52 L 14 113/59 01/13/20 04:33 51 L 115/60 01/13/20 04:30 54 L 14 115/60 01/13/20 04:16 51 L 14 122/61 01/13/20 04:00 97.6 F 88 13 113/57 01/13/20 03:45 52 L 14 113/57 01/13/20 03:42 52 L 01/13/20 03:30 52 L 14 111/58 01/13/20 03:16 53 L 14 114/57 01/13/20 03:00 61 14 131/64 01/13/20 02:45 54 L 14 120/66 01/13/20 02:30 68 18 117/70 01/13/20 02:16 97 H 22 129/83 01/13/20 02:00 58 L 13 117/70 01/13/20 01:45 47 L 14 108/58 01/13/20 01:30 46 L 14 121/65 01/13/20 01:15 50 L 14 121/65 01/13/20 01:00 58 L 13 116/69 01/13/20 00:53 48 L 122/66 01/13/20 00:45 55 L 14 122/66 01/13/20 00:30 49 L 14 113/60 01/13/20 00:15 49 L 14 119/61 01/13/20 00:00 97.6 F 49 L 14 117/66 01/12/20 23:46 84 11 L 115/31 01/12/20 23:30 49 L 14 126/66 01/12/20 23:15 44 L 14 122/59 01/12/20 23:00 47 L 14 122/63 01/12/20 22:45 44 L 14 130/60 01/12/20 22:30 48 L 15 122/63 01/12/20 22:15 50 L 14 133/67 01/12/20 22:00 48 L 14 129/65 01/12/20 21:45 49 L 14 133/62 01/12/20 21:30 54 L 16 139/69 01/12/20 21:28 53 L 126/61 01/12/20 21:15 50 L 14 126/61 01/12/20 21:00 49 L 14 124/65 01/12/20 20:46 84 19 120/63 01/12/20 20:30 50 L 15 120/63 01/12/20 20:15 50 L 16 124/65 01/12/20 20:00 97.3 F L 43 L 14 132/66 01/12/20 19:45 45 L 14 126/65 01/12/20 19:30 43 L 14 132/66 01/12/20 19:15 40 L 14 123/62 01/12/20 19:01 42 L 14 124/63 01/12/20 19:00 42 L 14 120/62 01/12/20 18:45 42 L 14 130/64 01/12/20 18:30 39 L 14 120/62 01/12/20 18:15 46 L 14 121/59 01/12/20 18:00 47 L 14 114/55 01/12/20 17:45 43 L 14 118/58 01/12/20 17:30 43 L 14 132/67 01/12/20 17:15 41 L 15 120/55 01/12/20 17:00 39 L 15 126/56 01/12/20 16:46 37 L 14 126/56 01/12/20 16:30 40 L 14 124/61 01/12/20 16:15 44 L 14 115/53 01/12/20 16:00 97.9 F 41 L 14 125/57 01/12/20 15:48 44 L 117/69 01/12/20 15:45 43 L 14 119/56 01/12/20 15:30 43 L 14 122/55 01/12/20 15:15 43 L 14 128/62 01/12/20 15:00 47 L 15 132/67 01/12/20 14:45 44 L 14 132/67 01/12/20 14:30 44 L 14 117/69 01/12/20 14:15 47 L 16 122/59 01/12/20 14:00 43 L 15 131/63 01/12/20 13:45 46 L 14 131/63 01/12/20 13:30 47 L 14 139/67 01/12/20 13:17 46 L 18 01/12/20 13:15 45 L 14 139/67 01/12/20 13:00 48 L 14 152/73 01/12/20 12:45 43 L 14 139/69 01/12/20 12:30 43 L 15 141/70 01/12/20 12:15 48 L 14 148/76 01/12/20 12:00 97.9 F 44 L 14 117/69 01/12/20 11:45 44 L 14 142/73 Pulse Ox 01/13/20 09:30 98 01/13/20 09:15 96 01/13/20 09:02 98 01/13/20 09:00 98 01/13/20 08:45 98 01/13/20 08:30 99 01/13/20 08:16 99 01/13/20 08:00 100 01/13/20 07:46 100 01/13/20 07:30 100 01/13/20 07:16 100 01/13/20 07:00 100 01/13/20 06:45 98 01/13/20 06:30 99 01/13/20 06:16 99 01/13/20 06:00 99 01/13/20 05:45 100 01/13/20 05:30 100 01/13/20 05:15 100 01/13/20 05:00 100 01/13/20 04:45 99 01/13/20 04:33 99 01/13/20 04:30 99 01/13/20 04:16 99 01/13/20 04:00 100 01/13/20 03:45 98 01/13/20 03:42 01/13/20 03:30 99 01/13/20 03:16 100 01/13/20 03:00 100 01/13/20 02:45 100 01/13/20 02:30 100 01/13/20 02:16 100 01/13/20 02:00 100 01/13/20 01:45 100 01/13/20 01:30 100 01/13/20 01:15 100 01/13/20 01:00 100 01/13/20 00:53 100 01/13/20 00:45 100 01/13/20 00:30 100 01/13/20 00:15 100 01/13/20 00:00 100 01/12/20 23:46 100 01/12/20 23:30 100 01/12/20 23:15 100 01/12/20 23:00 100 01/12/20 22:45 100 01/12/20 22:30 100 01/12/20 22:15 100 01/12/20 22:00 100 01/12/20 21:45 100 01/12/20 21:30 100 01/12/20 21:28 01/12/20 21:15 01/12/20 21:00 01/12/20 20:46 01/12/20 20:30 01/12/20 20:15 100 01/12/20 20:00 01/12/20 19:45 01/12/20 19:30 01/12/20 19:15 01/12/20 19:01 01/12/20 19:00 01/12/20 18:45 01/12/20 18:30 01/12/20 18:15 01/12/20 18:00 01/12/20 17:45 01/12/20 17:30 01/12/20 17:15 01/12/20 17:00 01/12/20 16:46 01/12/20 16:30 01/12/20 16:15 01/12/20 16:00 01/12/20 15:48 100 01/12/20 15:45 01/12/20 15:30 01/12/20 15:15 01/12/20 15:00 01/12/20 14:45 01/12/20 14:30 01/12/20 14:15 01/12/20 14:00 01/12/20 13:45 01/12/20 13:30 01/12/20 13:17 01/12/20 13:15 01/12/20 13:00 01/12/20 12:45 01/12/20 12:30 01/12/20 12:15 01/12/20 12:00 01/12/20 11:45 100 - Physical Examination General: Other (intubated on the vent) HEENT: Positive: PERRL Cardiac: Positive: Bradycardia - Labs and Meds CBC 01/13/20 Range/Units Unknown WBC 10.6 (4.5-11.0) K/mm3 RBC 3.39 L (3.65-5.03) M/mm3 Hgb 8.1 L (11.8-15.2) gm/dl Hct 28.4 L (35.5-45.6) % Plt Count 713 H (140-440) K/mm3 Lymph # 2.1 (1.2-5.4) K/mm3 Becker # 1.3 H (0.0-0.8) K/mm3 Eos # 0.4 (0.0-0.4) K/mm3 Baso # 0.2 H (0.0-0.1) K/mm3 Comprehensive Metabolic Panel 01/13/20 Range/Units 04:00 Sodium 149 H (137-145) mmol/L Potassium 4.4 (3.6-5.0) mmol/L Chloride 112.4 H (98-107) mmol/L Carbon Dioxide 32 H (22-30) mmol/L BUN 28 H (9-20) mg/dL Creatinine 0.8 (0.8-1.5) mg/dL Glucose 174 H (75-100) mg/dL Calcium 8.4 (8.4-10.2) mg/dL - Allied health notes Allied health notes reviewed: nursing
--- NOTE | 2020-01-13 13:03 | Progress Note ---
Assessment and Plan Assessment and plan: /Septic Shock /Sinus bradycardia /HypERnatremia / Acute hypoxic respiratory failure Likely from bilateral pneumonia and diastolic heart failure Patient intubated, placed on ventilatory support. critical care team consulted in ED. Patient is extubated, continue nebulizer breathing treatment and as needed biPAP We will also do a swallow eval / Sepsis with shock cont IV antibiotic therapy, IV fluid resuscitation therapy, monitor urine output every shift, maintain mean arterial blood pressure greater than or equal to 65, s/p IV pressor support. / Suspected 2019-nCoV infection -ruled out with 2 negative test / Diastolic CHF Preserved EF based on prior echocardiogram Monitor weight strict I's/O, daily weight, monitor urine output every shift, submental oxygen, blood pressure control. /JAGDEEP, due to vasomotor nephropathy, present on admission -Creatinine improving, -Likely due to severe sepsis and hypotension /hypernatremia, -due to dehydration and sepsis -change fluid to D5W - monitor BMP /Hypokalemia, replete / Diabetes type II Initiate tube feeding diet Sliding scale insulin, Accu-Chek, hypoglycemia protocol. / Hypothyroidism Synthroid therapy, supportive care. / Bilateral pneumonia Pneumonia protocol: IV antibiotic therapy with rocephin for total 7 days, pulse oximetry, /Cervical lymphadenopathy -Reactive versus infectious process versus malignancy -Need repeat scanning and further staging when medically more stable -Pulmonology and ID following /Ileus: Hold tube feeds / HTN (hypertension) -hold BP meds as patient is hypotensive Monitor blood pressure every shift, continue medical management. /History of obstructive sleep apnea -Patient currently on mechanical ventilation /Acute metabolic encephalopathy Secondary to hyponatremia. /Urinary retention, suspected in the ER -Patient having good urine output now, will hold any CT scan -Continue IV fluid / DVT prophylaxis SCD to bilateral lower extremities while in bed, prophylactic heparin 12/19/19: Negative for COVID-19, continue pressor and wean off as tolerated, continue IV antibiotic and follow cultures. 12/19: Weaned off from pressor, sodium 156>157>153 today, creatinine 1.4>1.2>1.0. Continue IV fluid. Wean off from vent as tolerated. Follow ID recommendation 12/20: Extubated today, continue to monitor in the ICU overnight if clinically stable with transfer out to [facility]/telemetry tomorrow a.m.. Sodium 149 today, continue IV fluid and monitor BMP. Swallow eval, PT OT eval. 2nd text for covid is negative 12/21: transfer to [facility], start on gentle hydration. mechanical soft diet 12/22: placed back on bipap, Na 163 - start on D5W, monitor bmp 12/23: spoke to sister, updated [id number], also discussed Pulmonary, will likely need LTAC. Obtain Nephrology due to persistent Hypernatremia. Will start on free water and continue to monitor. Remains of restriants for safety due to intermittent confusion. 12/24: Still with intermittent encephalopathy. Requiring restraints. Hyperna tremia still persist continue hypotonic solution. Nephrology consulted. Free water started this morning will increase dose. Replace potassium as hypokalemia still persist 12/26/19: Clinically improving, BIPAP now PRN AND HS, Na improving, continue renal follow up. I have called [facility] in case they would like to transfer the patient tested previously requested. 12/26: Hypernatermia still persist, had pulled out NGT yesterday, Continue free water, Continue Bipap, Mcdermott states he is not yet stable for transfer. Although from our critical care team this patient has been cleared for to be able to transfer. 12/27: Patient reintubated due to hypoxia. Continue current management as outlined by catalogue maker. Sodium is improving. Continue current management monitor ABG and intermittent chest x-ray. Mcdermott group updated. Patient sister also updated. 12/28: Sepsis persist. Antibiotics adjusted.-start linezolid 600 mg IV q 12 hour. Will adjust insulin for better management of blood glucose. 12/29: Shock still persist Levophed adjusted upward. [place] advised patient not safe for travel at this time. Continue ventilatory support continue full support antibiotics adjusted by ID. Follow cultures 12/30: Still on the vent and pressors , Isolation secondary MRSA In sputum. 12/31: Continue current management, will need intermittent chest xray, adjust insulin For better blood glucose control. Check labs in am 01/01: KUB reviewed shows distended bowel with no no specific obstruction noted. We will hold tube feeds at this time place NG tube to low intermittent suction. Repeat chest x-ray in a.m. Hyponatremia is better kidney function appears to be improving continue to monitor. 01/02: Continue feeding tube to low intermittent suction over 500 residual came out in the last 16+ hours. Repeat blood culture per ID. Continue antibiotics. We will obtain the CT abdomen and pelvis without contrast as renal function is mildly increased today. Prognosis is guarded repeat imaging concerning for colon distention. Will defer to critical care if the fecal management system should be placed. 01/03: CT A/P and chest. IMPRESSION: 1. Predominantly dependent bilateral consolidative and groundglass changes throughout both lungs have worsened since the prior. There is a new small left pleural effusion as well. These findings could be seen in the setting of pulmonary edema with associated superimposed infectious process. There is no cardiomegaly. 2. Left cervical/supraclavicular adenopathy appears slightly increased. This is nonspecific. However, there are shoddy nodes throughout the retroperitoneum and within the pelvis, and the spleen is mildly enlarged. Taken together, these findings are concerning for lymphoproliferative process such as lymphoma. - Ultrasound guided Biopsy, also send peripheral smear. US guided biopsy ordered - add a second pressors 01/04: Awaiting biopsy, continue supportive care, Sodium stable and improving. Patient undergoing bronchoscopy today. 01/05: Continue supportive care, monitor sodium level, wean pressors as tolerated, Radiology unable to perform biopsy of Lymphnode while patient is on the vent per Radiology team. Mcdermott updated of clinical status 01/06: Remains on pressors. Continues with nonoliguric kidney injury. We will give a bolus of fluid as patient is still dry. Hypoglycemia is improving will decrease to D5 from D10 at the same rate. Continue to monitor await cultures and cytology from bronchoscopy. Likely will need trach and PEG. 01/07: Discontinue D5. Patient did receive a bolus of fluid yesterday. Bowel movement noted. Monitor blood sugar close, continue to wean pressors, folllow result from bronchoscopy. start considering Trach and PEG 01/08: Noted hypotensive again this morning requiring reinitiation of pressors. Also was bradycardic received atropine. Keep atropine at bedside cardiology evaluated continue pulmonary supportive care while on ventilator. Renal function is improving. Will give additional bolus of fluid. 01/09: Consult placed to surgery for trach and PEG as patient has failed multiple weaning trials.. Still awaiting biopsy for the adenopathy noted. Again radiology would want the patient off the vent prior to doing biopsy. 01/11/2020. Patient still requiring mechanical ventilation with AC mode rate 14, tidal volume 450, FiO2 45% and PEEP of 8. Patient requiring fentanyl for sedation, wean as tolerated. Patient currently on pressors of dopamine and vasopressin. And currently on stress dose hydrocortisone 100 mg IV every 8 hours. Continue atropine at the bedside for emergent treatment of bradycardia. Cardiology to decide on possible device therapies. 01/12/2020. Patient still requiring mechanical ventilation with AC mode rate of 14, tidal volume 450, FiO2 50% and PEEP of 8. Continue to wean pressors to maintain MEP greater than 65. Atropine at the bedside for emergent treatment of bradycardia. Continue stress dose hydrocortisone. 01/13/2020. Patient still requiring mechanical ventilation on PSB mode FiO2 50% PEEP 8 and pressure support 15. Continue CPAP trials as tolerated. Continue to wean pressors to maintain MAP greater than 65. Atropine as needed for bradycardia. Avoid AV estella blocking agents. The high probability of a clinically significant, sudden or life threatening deterioration of the [renal, respiratory and cardiac] system(s) required my full and direct attention, intervention and personal management. The aggregate critical care time was [32] minutes. This time is in addition to time spent performing reported procedures but includes the following: [x] Data Review and interpretation [x] Patient assessment and monitoring of vital signs [x] Documentation [x] Medication orders and management History Interval history: No new issues overnight. Hospitalist Physical - Constitutional Vitals: Temp Pulse Resp BP Pulse Ox 98.3 F 54 L 22 91/46 98 01/13/20 08:00 01/13/20 12:45 01/13/20 12:45 01/13/20 12:45 01/13/20 12:45 General appearance: Present: severe distress - EENT Eyes: Present: PERRL, EOM intact ENT: hearing intact, clear oral mucosa, dentition normal - Neck Neck: Present: supple, normal ROM - Respiratory Respiratory effort: normal Respiratory: bilateral: CTA - Cardiovascular Rhythm: regular Heart Sounds: Present: S1 & S2. Absent: gallop, rub - Extremities Extremities: no ischemia, No edema, Full ROM - Abdominal General gastrointestinal: soft, non-tender, non-distended, normal bowel sounds - Integumentary Integumentary: Present: clear, warm, dry - Neurologic Neurologic: CNII-XII intact, moves all extremities HEART Score - HEART Score Troponin: Troponin T 0.011 ng/mL (0.00-0.029) 12/18/19 14:45 Results - Labs CBC & Chem 7: 01/13/20 Unknown 01/13/20 04:00 Labs: Laboratory Last Values WBC 10.6 K/mm3 (4.5-11.0) 01/13/20 Unknown RBC 3.39 M/mm3 (3.65-5.03) L 01/13/20 Unknown Hgb 8.1 gm/dl (11.8-15.2) L 01/13/20 Unknown Hct 28.4 % (35.5-45.6) L 01/13/20 Unknown MCV 84 fl (84-94) 01/13/20 Unknown MCH 24 pg (28-32) L 01/13/20 Unknown MCHC 29 % (32-34) L 01/13/20 Unknown RDW 19.9 % (13.2-15.2) H 01/13/20 Unknown Plt Count 713 K/mm3 (140-440) H 01/13/20 Unknown Lymph % (Auto) 20.2 % (13.4-35.0) 01/13/20 Unknown [place] % (Auto) 12.7 % (0.0-7.3) H 01/13/20 Unknown Eos % (Auto) 3.9 % (0.0-4.3) 01/13/20 Unknown Baso % (Auto) 1.9 % (0.0-1.8) H 01/13/20 Unknown Lymph # 2.1 K/mm3 (1.2-5.4) 01/13/20 Unknown Estill # 1.3 K/mm3 (0.0-0.8) H 01/13/20 Unknown Eos # 0.4 K/mm3 (0.0-0.4) 01/13/20 Unknown Baso # 0.2 K/mm3 (0.0-0.1) H 01/13/20 Unknown Add Manual Diff Complete 12/24/19 04:53 Total Counted 100 12/24/19 04:53 Seg Neutrophils % 61.3 % (40.0-70.0) 01/13/20 Unknown Seg Neuts % (Manual) 60.0 % (40.0-70.0) 12/24/19 04:53 Band Neutrophils % 0 % 12/24/19 04:53 Lymphocytes % (Manual) 20.0 % (13.4-35.0) 12/24/19 04:53 Reactive Lymphs % (Man) 0 % 12/24/19 04:53 Monocytes % (Manual) 15.0 % (0.0-7.3) H 12/24/19 04:53 Eosinophils % (Manual) 4.0 % (0.0-4.3) 12/24/19 04:53 Basophils % (Manual) 0 % (0.0-1.8) 12/24/19 04:53 Metamyelocytes % 1.0 % 12/24/19 04:53 Myelocytes % 0 % 12/24/19 04:53 Promyelocytes % 0 % 12/24/19 04:53 Blast Cells % 0 % 12/24/19 04:53 Nucleated RBC % Not Reportable 12/24/19 04:53 Seg Neutrophils # 6.5 K/mm3 (1.8-7.7) 01/13/20 Unknown Seg Neutrophils # Man 3.5 K/mm3 (1.8-7.7) 12/24/19 04:53 Band Neutrophils # 0.0 K/mm3 12/24/19 04:53 Lymphocytes # (Manual) 1.2 K/mm3 (1.2-5.4) 12/24/19 04:53 Abs React Lymphs (Man) 0.0 K/mm3 12/24/19 04:53 Monocytes # (Manual) 0.9 K/mm3 (0.0-0.8) H 12/24/19 04:53 Eosinophils # (Manual) 0.2 K/mm3 (0.0-0.4) 12/24/19 04:53 Basophils # (Manual) 0.0 K/mm3 (0.0-0.1) 12/24/19 04:53 Metamyelocytes # 0.1 K/mm3 12/24/19 04:53 Myelocytes # 0.0 K/mm3 12/24/19 04:53 Promyelocytes # 0.0 K/mm3 12/24/19 04:53 Blast Cells # 0.0 K/mm3 12/24/19 04:53 WBC Morphology Not Reportable 12/24/19 04:53 Hypersegmented Neuts Not Reportable 12/24/19 04:53 Hyposegmented Neuts Not Reportable 12/24/19 04:53 Hypogranular Neuts Not Reportable 12/24/19 04:53 Smudge Cells Not Reportable 12/24/19 04:53 Toxic Granulation Not Reportable 12/24/19 04:53 Toxic Vacuolation Not Reportable 12/24/19 04:53 Dohle Bodies Not Reportable 12/24/19 04:53 Pelger-Huet Anomaly Not Reportable 12/24/19 04:53 Mervin Rods Not Reportable 12/24/19 04:53 Platelet Estimate Consistent w auto 12/24/19 04:53 Clumped Platelets Not Reportable 12/24/19 04:53 Plt Clumps, EDTA Not Reportable 12/24/19 04:53 Large Platelets Not Reportable 12/24/19 04:53 Giant Platelets Not Reportable 12/24/19 04:53 Platelet Satelliting Not Reportable 12/24/19 04:53 Plt Morphology Comment Not Reportable 12/24/19 04:53 RBC Morphology Not Reportable 12/24/19 04:53 Dimorphic RBCs Not Reportable 12/24/19 04:53 Polychromasia Rare 12/24/19 04:53 Hypochromasia 1+ 12/24/19 04:53 Poikilocytosis Not Reportable 12/24/19 04:53 Anisocytosis 1+ 12/24/19 04:53 Microcytosis Few 12/24/19 04:53 Macrocytosis Not Reportable 12/24/19 04:53 Spherocytes Not Reportable 12/24/19 04:53 Pappenheimer Bodies Not Reportable 12/24/19 04:53 Sickle Cells Not Reportable 12/24/19 04:53 Target Cells Not Reportable 12/24/19 04:53 Tear Drop Cells Not Reportable 12/24/19 04:53 Ovalocytes Few 12/24/19 04:53 Helmet Cells Not Reportable 12/24/19 04:53 Brink-Colwich Bodies Not Reportable 12/24/19 04:53 [place] Rings Not Reportable 12/24/19 04:53 Ileana Cells Not Reportable 12/24/19 04:53 Bite Cells Not Reportable 12/24/19 04:53 Crenated Cell Not Reportable 12/24/19 04:53 Elliptocytes Not Reportable 12/24/19 04:53 Acanthocytes (Spur) Not Reportable 12/24/19 04:53 Rouleaux Not Reportable 12/24/19 04:53 Hemoglobin C Crystals Not Reportable 12/24/19 04:53 Schistocytes Not Reportable 12/24/19 04:53 Malaria parasites Not Reportable 12/24/19 04:53 Gianni Bodies Not Reportable 12/24/19 04:53 Hem Pathologist Commnt No 12/24/19 04:53 PT 14.0 Sec. (12.2-14.9) 12/18/19 14:45 INR 1.10 (0.87-1.13) 12/18/19 14:45 APTT 29.4 Sec. (24.2-36.6) 12/18/19 14:45 D-Dimer 534.45 ng/mlDDU (0-234) H 12/18/19 14:45 ABG pH 7.407 pH Units (7.350-7.450) 01/10/20 04:20 ABG pCO2 45.1 mm Hg 01/10/20 04:20 ABG pO2 95.3 mm Hg (80.0-90.0) H 01/10/20 04:20 ABG HCO3 27.8 mmol/L (20.0-26.0) H 01/10/20 04:20 ABG O2 Saturation 97.7 % (95.0-99.0) 01/10/20 04:20 ABG O2 Content 20.6 (0.0-44) 01/10/20 04:20 ABG Base Excess 2.5 mmol/L (-2.0-3.0) 01/10/20 04:20 ABG Hemoglobin 8.3 gm/dl (14.0-18.0) L 01/10/20 04:20 ABG Carboxyhemoglobin 1.6 % (0.0-5.0) 01/10/20 04:20 ABG Methemoglobin 0.5 % (0.0-1.5) 01/10/20 04:20 Oxyhemoglobin 95.6 % (95.0-99.0) 01/10/20 04:20 FiO2 50 % 01/10/20 04:20 Sodium 149 mmol/L (137-145) H 01/13/20 04:00 Potassium 4.4 mmol/L (3.6-5.0) 01/13/20 04:00 Chloride 112.4 mmol/L (98-107) H 01/13/20 04:00 Carbon Dioxide 32 mmol/L (22-30) H 01/13/20 04:00 Anion Gap 9 mmol/L 01/13/20 04:00 BUN 28 mg/dL (9-20) H 01/13/20 04:00 Creatinine 0.8 mg/dL (0.8-1.5) 01/13/20 04:00 Estimated GFR > 60 ml/min 01/13/20 04:00 BUN/Creatinine Ratio 35 % 01/13/20 04:00 Glucose 174 mg/dL (75-100) H 01/13/20 04:00 POC Glucose 172 (70-105) H 01/13/20 10:24 Lactic Acid 1.70 mmol/L (0.7-2.0) 12/30/19 05:06 Calcium 8.4 mg/dL (8.4-10.2) 01/13/20 04:00 Phosphorus 3.70 mg/dL (2.5-4.5) 12/27/19 03:48 Magnesium 2.60 mg/dL (1.7-2.3) H 12/30/19 05:06 Ferritin 83.4 ng/mL (13.0-400.0) 12/18/19 14:45 Total Bilirubin 0.20 mg/dL (0.1-1.2) 01/11/20 05:45 AST 67 units/L (5-40) H 01/11/20 05:45 ALT 45 units/L (7-56) 01/11/20 05:45 Alkaline Phosphatase 111 units/L (35-129) 01/11/20 05:45 Ammonia 39.0 umol/L (25-60) 12/18/19 14:45 Lactate Dehydrogenase 235 units/L (91-180) H 12/18/19 14:45 Lactate Dehydrogenase 236 units/L (91-180) H 12/18/19 14:45 Total Creatine Kinase 40 units/L (55-170) L 12/18/19 14:45 Troponin T 0.011 ng/mL (0.00-0.029) 12/18/19 14:45 C-Reactive Protein 8.40 mg/dL (0.00-1.30) H 12/18/19 14:45 C-Reactive Protein 8.50 mg/dL (0.00-1.30) H 12/18/19 14:45 Total Protein 5.9 g/dL (6.3-8.2) L 01/11/20 05:45 Albumin 2.8 g/dL (3.9-5) L 01/11/20 05:45 Albumin/Globulin Ratio 0.9 % 01/11/20 05:45 Procalcitonin 0.22 ng/mL (<0.15) 12/18/19 14:45 TSH 2.300 mlU/mL (0.270-4.200) 12/18/19 14:45 Urine Color Yellow (Yellow) 12/19/19 16:50 Urine Turbidity Clear (Clear) 12/19/19 16:50 Urine pH 5.0 (5.0-7.0) 12/19/19 16:50 Ur Specific [place] 1.010 (1.003-1.030) 12/19/19 16:50 Urine Protein <15 mg/dl mg/dL (Negative) 12/19/19 16:50 Urine Glucose (UA) 150 mg/dL (Negative) 12/19/19 16:50 Urine Ketones Neg mg/dL (Negative) 12/19/19 16:50 Urine Blood Neg (Negative) 12/19/19 16:50 Urine Nitrite Neg (Negative) 12/19/19 16:50 Urine Bilirubin Neg (Negative) 12/19/19 16:50 Urine Urobilinogen < 2.0 mg/dL (<2.0) 12/19/19 16:50 Ur Leukocyte Esterase Tr (Negative) 12/19/19 16:50 Urine WBC (Auto) 7.0 /HPF (0.0-6.0) H 12/19/19 16:50 Urine RBC (Auto) 4.0 /HPF (0.0-6.0) 12/19/19 16:50 U Epithel Cells (Auto) 1.0 /HPF (0-13.0) 12/19/19 16:50 Urine Bacteria (Auto) 1+ /HPF (Negative) 12/19/19 16:50 Urine Mucus Few /HPF 12/19/19 16:50 Urine Osmolality 140 Mosm/kg 12/25/19 16:45 Urine Creatinine < 4.2 mg/dL (0.1-20.0) 12/25/19 16:45 Urine Sodium 10 mmol/L 12/25/19 16:45 Urine Total Protein < 4 mg/dL (5-11.8) L 12/25/19 16:45 Digoxin 0.3 ng/mL (0.9-2.0) L 12/18/19 14:45 Salicylates < 0.3 mg/dL (2.8-20.0) L 12/18/19 14:45 Acetaminophen < 5.0 ug/mL (10.0-30.0) L 12/18/19 14:45 Plasma/Serum Alcohol < 0.01 % (0-0.07) 12/18/19 14:45 Coronavirus (PCR) Negative (Negative) 12/21/19 14:45 AFB Identification 01/05/20 09:05 Fungal Id Prelim 01/05/20 09:05 Blood Type A POSITIVE 12/18/19 14:45 Antibody Screen Negative 12/18/19 14:45 - Diagnostic Impressions Diagnostic Impressions: Echocardiogram 12/28/19 14:07 Transthoracic Echocardiogram Indication: SOB BP: 95/51 HR: 99 Conclusions *The left ventricular chamber size is mildly dilated. *There is no left ventricular hypertrophy. *Global left ventricular systolic function is mildly decreased. *The estimated ejection fraction is 45-50%. *Abnormal left ventricular diastolic filling is observed, consistent with impaired relaxation. *The right ventricular global systolic function is mildly reduced. *The right ventricular systolic pressure is calculated at 53 mmHg. Findings Left Ventricle: The left ventricular chamber size is mildly dilated. There is no left ventricular hypertrophy. Global left ventricular systolic function is mildly decreased. The estimated ejection fraction is 45-50%. Abnormal left ventricular diastolic filling is observed, consistent with impaired relaxation. Left Atrium: The left atrial chamber size is normal. Right Ventricle: The right ventricular cavity size is normal. The right ventricular global systolic function is mildly reduced. Right Atrium: The right atrial cavity size is normal. Aortic Valve: The aortic valve leaflets are mildly thickened. There is no evidence of aortic regurgitation. Mitral Valve: The mitral valve leaflets are mildly thickened. There is no evidence of mitral regurgitation. Tricuspid Valve: The tricuspid valve leaflets are normal. There is mild tricuspid regurgitation. The right ventricular systolic pressure is calculated at 53 mmHg. Pulmonic Valve: The pulmonic valve appears normal. There is trace pulmonic regurgitation. Pericardium: There is no pericardial effusion. Aorta: The aorta appears normal. Venous: The inferior vena cava is dilated. Measurements Chambers 2D Name Value Normal Range IVSd (2D) 1.08 cm (0.6 - 1.1) LVPWd (2D) 1 cm (0.6 - 1.1) LVIDd (2D) 4.67 cm (3.7 - 5.6) LVIDs (2D) 3.89 cm (2 - 3.8) LV FS (2D) 16.76 % - EF Teichholz (2D) 35.14 % - Ao root diameter (2D) 2.86 cm (2 - 3.7) Volumes/Mass Name Value Normal Range LA ESV SP 4CH (A/L) 31.8 ml - LA ESV SP 2CH (A/L) 27.37 ml - LA ESV BP (A/L) 33.43 ml - LA ESV BP (A/L) index 14.11 ml/m2 - LA ESV SP 4CH (MOD) 26.83 ml - LA ESV SP 2CH (MOD) 29.59 ml - LA ESV BP (MOD) 30.47 ml - LA ESV BP (MOD) index 12.86 ml/m2 - Diastolic/Systolic Function Name Value Normal Range MV E-wave Vmax 0.39 m/sec - MV deceleration time 115.69 msec - MV A-wave Vmax 0.63 m/sec - MV E:A ratio 0.62 ratio - Aortic Valve Name Value Normal Range AV Vmax 1.14 m/sec - AV VTI 20.1 cm - AV peak gradient 5.17 mmHg - AV mean gradient 3.89 mmHg - LVOT diameter 2.02 cm - LVOT Vmax 0.99 m/sec - LVOT VTI 16.45 cm - LVOT peak gradient 3.95 mmHg - LVOT mean gradient 2.45 mmHg - SV LVOT 52.45 ml - RALPH (continuity Vmax) 2.78 cm2 - RALPH (continuity VTI) 2.61 cm2 - Tricuspid Valve Name Value Normal Range TR Vmax 3.36 m/sec - TR peak gradient 45 mmHg - RAP 8 mmHg - RVSP 53 mmHg - IVC diameter 2.33 cm (1.2 - 2.3) Pulmonic Valve/Qp:Qs Name Value Normal Range PV Vmax 0.89 m/sec - PV peak gradient 3.16 mmHg - [place] end-diastolic Vmax 1.42 m/sec - PV acceleration time 79.92 msec - Sykes/IV: Voiding Method Condom Catheter IV Catheter Type [Right Upper PICC Line arm] IV Catheter Type [Right Leg] Intra-osseous IV Catheter Type [Right Wrist] Peripheral IV IV Catheter Type [Right Hand] INT / Saline Lock IV Catheter Type [Left Hand] INT / Saline Lock IV Catheter Type [Left Forearm INT / Saline Lock ] IV Catheter Type [Left Triple Lumen Cath Internal Jugular] Active Medications - Current Medications Current Medications: Generic Name Dose Route Start Last Admin Trade Name Freq PRN Reason Stop Dose Admin Acetaminophen 650 mg 12/29/19 09:21 01/03/20 18:31 Tylenol PO 650 mg Q4H PRN Administration Non Cardiac Pain or Temp>100.5 Albuterol/Ipratropium 1 ampul 12/18/19 14:00 01/13/20 09:03 Duoneb *Not For Prn Use* IH 1 ampul TIDRT SHANEL Administration Lipase/Protease/Amylase 1 each 12/19/19 08:29 Pancrecorry Cabrera 10,500 Unit FEEDTUBE PRN PRN For Clogged Feeding Tube Aspirin 81 mg 12/19/19 10:00 01/13/20 10:25 Baby Aspirin PO 81 mg DAILY SHANEL Administration Atropine Sulfate 1 mg 01/09/20 13:50 01/10/20 18:00 Atropine 0.1% (Cardiac) IV 1 mg PRN PRN Administration Bradycardia Bisacodyl 10 mg 01/02/20 15:48 01/02/20 18:25 Dulcolax [place] 10 mg QDAY PRN Administration Constipation Docusate Sodium 100 mg 01/01/20 22:00 01/13/20 10:25 Colace PO 100 mg BID SHANEL Administration Famotidine 20 mg 12/20/19 10:00 01/13/20 10:25 Pepcid PO 20 mg BID SHANEL Administration Fentanyl 50 mcg 12/27/19 16:57 Sublimaze IV Q10MIN PRN ANALGESIA Folic Acid 1 mg 12/19/19 10:00 01/13/20 10:25 Folvite PO 1 mg DAILY SHANEL Administration Heparin Sodium (Porcine) 5,000 unit 12/18/19 22:00 01/13/20 10:25 Heparin SUB-Q 5,000 unit Q12HR SHANEL Administration Hydrophilic Ointment 1 applic 12/18/19 12:35 Vaseline Lip Therapy TP Q2HR PRN Dry Lips Fentanyl Citrate 2,000 mcg in 100 mls @ 5.85 mls/hr 12/27/19 17:00 01/13/20 10:20 Fentanyl Drip Premix IV 3 mcg/kg/hr TITR SHANEL 17.55 mls/hr Administration Protocol 1 MCG/KG/HR Norepinephrine 4 mg in 250 mls @ 7.5 mls/hr 12/28/19 15:00 01/09/20 09:02 Levophed Drip 4 Mg/Ns 250 Ml IV 0 mcg/min TITR SHANEL 0 mls/hr Titration Protocol 2 MCG/MIN Vasopressin 20 unit/ Sodium 101 mls @ 9.09 mls/hr 12/30/19 12:30 01/01/20 13:44 Chloride IV 0 units/min TITR SHANEL 0 mls/hr Titration Protocol 0.03 UNITS/MIN Dopamine HCl/Dextrose 800 mg in 250 mls @ 4.388 mls/hr 12/31/19 16:00 01/12/20 23:03 Intropin Drip 800 Mg/D5w 250 Ml IV 2 mcg/kg/min TITR SHANEL 4.388 mls/hr Administration Protocol 2 MCG/KG/MIN Insulin Glargine 15 units 01/10/20 14:00 01/13/20 10:23 Lantus SUB-Q 15 units BID [facility] Administration Insulin Human Lispro 0 unit 12/31/19 14:00 01/13/20 10:26 Humalog SUB-Q 3 unit Q4HR [facility] Administration Protocol Levothyroxine Sodium 88 mcg 12/19/19 06:00 01/13/20 06:01 Synthroid PO 88 mcg QAM@0600 [facility] Administration Multi-Ingred Cream/Lotion/Oil/Oint 1 applic 12/18/19 12:35 Artificial Tears Ophth Oint OU Q4HR PRN Dry Eye(s) Polyethylene Glycol 17 gm 01/01/20 22:00 01/12/20 23:03 Miralax 3350 PO 17 gm QHS [facility] Administration Simple Syrup 15 ml 12/19/19 08:29 01/06/20 04:58 Simple Syrup FEEDTUBE 15 ml PRN PRN Administration Hypoglycemia Simple Syrup 30 ml 12/19/19 08:29 Simple Syrup FEEDTUBE PRN PRN Hypoglycemia Sodium Bicarbonate 325 mg 12/19/19 08:29 Sodium Bicarbonate FEEDTUBE PRN PRN For Clogged Feeding Tube Sodium Chloride 10 ml 12/18/19 22:00 01/13/20 10:25 Sodium Chloride Flush Syringe 10 Ml IV 10 ml BID SHANEL Administration Sodium Chloride 10 ml 12/18/19 13:31 Sodium Chloride Flush Syringe 10 Ml IV PRN PRN LINE FLUSH Nutrition/Malnutrition Assess - Dietary Evaluation Nutrition/Malnutrition Findings: Nutrition Notes Start: 12/19/19 08:16 Freq: Status: Active Protocol: Document 01/12/20 13:27 LP (Rec: 01/12/20 13:30 LP [id number]) Nutrition Notes Initial or Follow up Reassessment Current Diagnosis Diabetes,Sepsis,Hypertension, Heart Failure,Respiratory Failure Other Pertinent Diagnosis COVID-19 (-), pneu Current Diet Vital AF 1.2 at 65ml/hr Labs/Tests K 5.1 Na 148 Pertinent Medications Reviewed Height 6 ft 2 in Weight 117 kg [place] Body Weight (kg) 86.36 BMI 33.1 Weight Status Obese Subjective/Other Information Pt tolerating TF at goal rate. Pt Na elevated and MD ordered 200ml q4h flushes. Percent of energy/protein needs met: 94%/68% Burn Absent Trauma Absent Current % PO Negligible Minimum of two criteria No physical signs of malnutrition #1 Nutrition Diagnosis Inadequate oral intake Diagnosis Progress(for reassessment Continues documentation) Is patient on ventilator? Yes Is Patient Ambulatory and/or Out of Bed No REE-([place]-confined to bed) 2469.960 Kcal/Kg value to use for calculation 17 Approximate Energy Requirements Using 1989 kcal/Kg Calculation Used for Recommendations Kcal/kg Additional Notes Protein: 172g (>/=2g/kg using IBW 86kg) Fluid 1ml/kcal Nutrition Intervention Change Diet Order: TF Nutrition Support: Vital AF 1.2 at 65ml/hr Flush 250ml q4h for hypernatremia Flush 100ml q4h Kcal 1,872 Protein (gm) 117 Fluid (mL) 1,265 Goal #1 TF tolerance Goal #2 Meet at least 75% of energy and protein needs Anticipated Discharge Needs: unable to determine at this time Follow-Up By: 01/14/20 Additional Comments Follow for Na level
--- NOTE | 2020-01-13 13:08 | Progress Note ---
Assessment and Plan Acute Hypoxemic Respiratory Failure Severe Sepsis with Shock Bilateral Pneumonia Bradycardia JAGDEEP secondary to ATN, non oliguric Hypernatremia Morbid Obesity H/O CHF JOE - Continue with dopamine, monitor bradycardia. If he remains bradycardic with ongoing requirements for dopamine support, may need to be evaluated for need for pacemaker. Cardiology on consult -Get CXR and ABG today - Continue Free water at 250 cc q4 and hypotonic solutions for hypernatremia -Continue to monitor off antibiotics, trend temperature curve and WCC -Discussed with general surgery re tracheostomy and PEG placement- sisters are agreeable -Continue with bowel regimen -Daily SAT and SBT assessment as tolerated - Continue care as below otherwise - accuchecks with glycemic control per SSI (While critically ill target blood glucose of 140-180 mg/dL; avoid hypoglycemia) - sedation for target RASS 0 to -1 - continue to wean supplemental oxygen for target O2 sat's > 92% - continue bronchodilators with pulmonary hygiene per RT - VAP bundle addressed - lung protective strategies - wean per pulmonary driven protocols otherwise - continue to avoid benzodiazepines, reduce the possibility of delirium - prn analgesia per CPOT score - Maintenance of sleep-wake cycle - continue to avoid benzodiazepines, reduce the possibility of delirium - continue enteral nutritional support at goal rate as tolerated - G.I. & VTE prophylaxis - PT/OT/ROM exercises - continue mobility protocols for pressure ulcer prophylaxis - repeat COVID-19 test negative - continue aspiration precautions - continue accuchecks with glycemic control per SSI (While critically ill target blood glucose of 140-180 mg/dL; avoid hypoglycemia) - Monitor hemodynamics closely - continue other care per attending / other consultants .... Re-evaluate in am & prn CONDITION: CRITICAL PROGNOSIS: GUARDED CODE STATUS: FULL CODE The high probability of a clinically significant, sudden or life-threatening deterioration of the [respiratory, cardiovascular, GI & neurologic] system(s) required my full and direct attention, intervention and personal management. The aggregate critical care time was [31] minutes without overlap. Time includes spent on; [x] Data Review and interpretation [x] Patient assessment and monitoring of vital signs [x] Documentation [x] Medication orders and management Subjective Date of service: 01/13/20 Principal diagnosis: Ac. Hypoxemic Resp Failure; Septic Shock; Magdiel. PNA; PUI COVID-19; CHF; JOE Interval history: Patient is seen today for: Acute Hypoxemic Respiratory Failure; Severe Sepsis with Shock; Bilateral Pneumonia; PUI COVID-19; Morbid Obesity; H/O CHF; JOE Seen and examined at bedside; 24hour events reviewed; nursing and respiratory care staff consulted; no adverse overnight events reported to me; resting peacefully in bed; remains on MVS; remains on vasopressor support dopamine at 2 mcg for bradycardia. Has episodes of bradycardia, 2 days ago required IV atropine. Currently on SBT, requiring PSV 15 to generate spontaneous tidal volumes of 300 No fevers,remains on free water flushes of 240 q4 , for hypernatremia. Objective Vital Signs - 12hr 01/13/20 01/13/20 01/13/20 01:15 01:30 01:45 Temperature Pulse Rate 50 L 46 L 47 L Pulse Rate [ Bilateral] Pulse Rate [ From Monitor] Respiratory 14 14 14 Rate Respiratory Rate [Bilateral ] Blood Pressure 121/65 121/65 108/58 O2 Sat by Pulse 100 100 100 Oximetry 01/13/20 01/13/20 01/13/20 02:00 02:16 02:30 Temperature Pulse Rate 58 L 97 H 68 Pulse Rate [ Bilateral] Pulse Rate [ From Monitor] Respiratory 13 22 18 Rate Respiratory Rate [Bilateral ] Blood Pressure 117/70 129/83 117/70 O2 Sat by Pulse 100 100 100 Oximetry 01/13/20 01/13/20 01/13/20 02:45 03:00 03:16 Temperature Pulse Rate 54 L 61 53 L Pulse Rate [ Bilateral] Pulse Rate [ From Monitor] Respiratory 14 14 14 Rate Respiratory Rate [Bilateral ] Blood Pressure 120/66 131/64 114/57 O2 Sat by Pulse 100 100 100 Oximetry 01/13/20 01/13/20 01/13/20 03:30 03:42 03:45 Temperature Pulse Rate 52 L 52 L 52 L Pulse Rate [ Bilateral] Pulse Rate [ From Monitor] Respiratory 14 14 Rate Respiratory Rate [Bilateral ] Blood Pressure 111/58 113/57 O2 Sat by Pulse 99 98 Oximetry 01/13/20 01/13/20 01/13/20 04:00 04:16 04:30 Temperature 97.6 F Pulse Rate 88 51 L 54 L Pulse Rate [ Bilateral] Pulse Rate [ From Monitor] Respiratory 13 14 14 Rate Respiratory Rate [Bilateral ] Blood Pressure 113/57 122/61 115/60 O2 Sat by Pulse 100 99 99 Oximetry 01/13/20 01/13/20 01/13/20 04:33 04:45 05:00 Temperature Pulse Rate 51 L 52 L 55 L Pulse Rate [ Bilateral] Pulse Rate [ From Monitor] Respiratory 14 13 Rate Respiratory Rate [Bilateral ] Blood Pressure 115/60 113/59 116/61 O2 Sat by Pulse 99 99 100 Oximetry 01/13/20 01/13/20 01/13/20 05:15 05:30 05:45 Temperature Pulse Rate 53 L 54 L 51 L Pulse Rate [ Bilateral] Pulse Rate [ From Monitor] Respiratory 13 14 14 Rate Respiratory Rate [Bilateral ] Blood Pressure 112/58 112/57 114/59 O2 Sat by Pulse 100 100 100 Oximetry 01/13/20 01/13/20 01/13/20 06:00 06:16 06:30 Temperature Pulse Rate 59 L 63 58 L Pulse Rate [ Bilateral] Pulse Rate [ From Monitor] Respiratory 14 21 14 Rate Respiratory Rate [Bilateral ] Blood Pressure 124/67 124/67 134/65 O2 Sat by Pulse 99 99 99 Oximetry 01/13/20 01/13/20 01/13/20 06:45 07:00 07:16 Temperature Pulse Rate 82 86 67 Pulse Rate [ Bilateral] Pulse Rate [ From Monitor] Respiratory 15 14 14 Rate Respiratory Rate [Bilateral ] Blood Pressure 134/56 134/56 134/56 O2 Sat by Pulse 98 100 100 Oximetry 01/13/20 01/13/20 01/13/20 07:30 07:46 08:00 Temperature 98.3 F Pulse Rate 70 64 63 Pulse Rate [ Bilateral] Pulse Rate [ 59 L From Monitor] Respiratory 16 14 20 Rate Respiratory Rate [Bilateral ] Blood Pressure 165/80 124/68 147/69 O2 Sat by Pulse 100 100 100 Oximetry 01/13/20 01/13/20 01/13/20 08:16 08:30 08:45 Temperature Pulse Rate 54 L 56 L 69 Pulse Rate [ Bilateral] Pulse Rate [ From Monitor] Respiratory 12 17 15 Rate Respiratory Rate [Bilateral ] Blood Pressure 132/64 144/71 153/103 O2 Sat by Pulse 99 99 98 Oximetry 01/13/20 01/13/20 01/13/20 09:00 09:02 09:15 Temperature Pulse Rate 58 L 74 64 Pulse Rate [ 79 Bilateral] Pulse Rate [ From Monitor] Respiratory 14 20 Rate Respiratory 16 Rate [Bilateral ] Blood Pressure 153/103 117/64 121/69 O2 Sat by Pulse 98 98 96 Oximetry 01/13/20 01/13/20 01/13/20 09:30 09:45 10:00 Temperature Pulse Rate 63 59 L 57 L Pulse Rate [ Bilateral] Pulse Rate [ From Monitor] Respiratory 17 17 22 Rate Respiratory Rate [Bilateral ] Blood Pressure 113/57 99/52 104/54 O2 Sat by Pulse 98 99 98 Oximetry 01/13/20 01/13/20 01/13/20 10:15 10:30 10:45 Temperature Pulse Rate 62 61 60 Pulse Rate [ Bilateral] Pulse Rate [ From Monitor] Respiratory 22 19 20 Rate Respiratory Rate [Bilateral ] Blood Pressure 104/51 93/54 93/46 O2 Sat by Pulse 97 100 98 Oximetry 01/13/20 01/13/20 01/13/20 11:00 11:16 11:30 Temperature Pulse Rate 55 L 49 L 56 L Pulse Rate [ Bilateral] Pulse Rate [ From Monitor] Respiratory 16 19 20 Rate Respiratory Rate [Bilateral ] Blood Pressure 92/46 105/59 105/59 O2 Sat by Pulse 97 94 96 Oximetry 01/13/20 01/13/20 01/13/20 11:45 12:00 12:15 Temperature Pulse Rate 52 L 53 L 53 L Pulse Rate [ Bilateral] Pulse Rate [ From Monitor] Respiratory 21 20 22 Rate Respiratory Rate [Bilateral ] Blood Pressure 92/45 90/44 93/46 O2 Sat by Pulse 94 95 96 Oximetry 01/13/20 01/13/20 01/13/20 12:21 12:30 12:45 Temperature Pulse Rate 54 L 50 L 54 L Pulse Rate [ Bilateral] Pulse Rate [ From Monitor] Respiratory 22 17 22 Rate Respiratory Rate [Bilateral ] Blood Pressure 96/46 106/50 91/46 O2 Sat by Pulse 97 96 98 Oximetry 01/13/20 13:00 Temperature Pulse Rate 48 L Pulse Rate [ Bilateral] Pulse Rate [ From Monitor] Respiratory 19 Rate Respiratory Rate [Bilateral ] Blood Pressure 94/47 O2 Sat by Pulse 98 Oximetry Constitutional: no acute distress, other (elderly obese AAM with mildly increrased respiratory effort at rest on MVS) Eyes: non-icteric ENT: oropharynx moist, other (ETT 24 cm KOLBY) Neck: supple, no lymphadenopathy, no JVD Effort: normal Ascultation: Bilateral: diminished breath sounds, rhonchi, other (diminished bibasilar air entry) Percussion: Bilateral: not dull Cardiovascular: regular rate and rhythm (Bradycardia), other (S1,S2) Gastrointestinal: normoactive bowel sounds, soft, non-tender, other (protuberant) Integumentary: rash (stasis dermatyitis) Extremities: no cyanosis, pink and warm, pulses normal, no ischemia or petechiae, edema (trace) Neurologic: pupils equal and round, other (responds to verbal and tactile stimuli) Psychiatric: other (unable to assess) CBC and BMP: 01/13/20 Unknown 01/13/20 04:00 ABG, PT/INR, D-dimer: ABG ABG pH 7.407 pH Units (7.350-7.450) 01/10/20 04:20 ABG pCO2 45.1 mm Hg 01/10/20 04:20 ABG pO2 95.3 mm Hg (80.0-90.0) H 01/10/20 04:20 ABG O2 Saturation 97.7 % (95.0-99.0) 01/10/20 04:20 PT/INR, D-dimer PT 14.0 Sec. (12.2-14.9) 12/18/19 14:45 INR 1.10 (0.87-1.13) 12/18/19 14:45 D-Dimer 534.45 ng/mlDDU (0-234) H 12/18/19 14:45 Abnormal lab findings: Abnormal Labs 12/18/19 12/18/19 12/18/19 12:23 14:45 14:45 WBC RBC Hgb 10.4 L Hct 35.2 L MCV MCH 25 L MCHC 30 L RDW 18.8 H Plt Count Lymph % (Auto) [place] % (Auto) 11.6 H Eos % (Auto) 4.8 H Baso % (Auto) Lymph # [place] # 1.0 H Eos # Baso # Seg Neutrophils % Monocytes % (Manual) Monocytes # (Manual) D-Dimer ABG pH ABG pO2 ABG HCO3 ABG O2 Saturation ABG Base Excess ABG Hemoglobin Oxyhemoglobin Sodium Potassium Chloride Carbon Dioxide BUN Creatinine Glucose POC Glucose 328 H Lactic Acid Calcium Magnesium AST ALT Lactate Dehydrogenase Total Creatine Kinase 40 L C-Reactive Protein Total Protein Albumin Urine WBC (Auto) Urine Total Protein Digoxin Salicylates Acetaminophen 12/18/19 12/18/19 12/18/19 14:45 14:45 14:45 WBC RBC Hgb Hct MCV MCH MCHC RDW Plt Count Lymph % (Auto) [place] % (Auto) Eos % (Auto) Baso % (Auto) Lymph # [place] # Eos # Baso # Seg Neutrophils % Monocytes % (Manual) Monocytes # (Manual) D-Dimer 534.45 H ABG pH ABG pO2 ABG HCO3 ABG O2 Saturation ABG Base Excess ABG Hemoglobin Oxyhemoglobin Sodium 156 H Potassium Chloride 112.3 H Carbon Dioxide 31 H BUN 32 H Creatinine Glucose 328 H POC Glucose Lactic Acid Calcium Magnesium AST ALT Lactate Dehydrogenase 235 H Total Creatine Kinase C-Reactive Protein 8.50 H Total Protein Albumin 3.6 L Urine WBC (Auto) Urine Total Protein Digoxin 0.3 L Salicylates < 0.3 L Acetaminophen 12/18/19 12/18/19 12/18/19 14:45 14:45 16:00 WBC RBC Hgb Hct MCV MCH MCHC RDW Plt Count Lymph % (Auto) [place] % (Auto) Eos % (Auto) Baso % (Auto) Lymph # [place] # Eos # Baso # Seg Neutrophils % Monocytes % (Manual) Monocytes # (Manual) D-Dimer ABG pH ABG pO2 69.8 L ABG HCO3 31.8 H ABG O2 Saturation ABG Base Excess 5.4 H ABG Hemoglobin 10.0 L Oxyhemoglobin 92.9 L Sodium Potassium Chloride Carbon Dioxide BUN Creatinine Glucose 314 H POC Glucose Lactic Acid Calcium Magnesium AST ALT Lactate Dehydrogenase 236 H Total Creatine Kinase C-Reactive Protein 8.40 H Total Protein Albumin Urine WBC (Auto) Urine Total Protein Digoxin Salicylates Acetaminophen < 5.0 L 12/18/19 12/18/19 12/18/19 16:35 18:30 22:56 WBC RBC Hgb Hct MCV MCH MCHC RDW Plt Count Lymph % (Auto) [place] % (Auto) Eos % (Auto) Baso % (Auto) Lymph # [place] # Eos # Baso # Seg Neutrophils % Monocytes % (Manual) Monocytes # (Manual) D-Dimer ABG pH ABG pO2 ABG HCO3 ABG O2 Saturation ABG Base Excess ABG Hemoglobin Oxyhemoglobin Sodium Potassium Chloride Carbon Dioxide BUN Creatinine Glucose POC Glucose 310 H 353 H Lactic Acid 2.50 H* Calcium Magnesium AST ALT Lactate Dehydrogenase Total Creatine Kinase C-Reactive Protein Total Protein Albumin Urine WBC (Auto) Urine Total Protein Digoxin Salicylates Acetaminophen 12/19/19 12/19/19 12/19/19 04:13 04:13 06:00 WBC RBC Hgb 10.0 L Hct 34.2 L MCV MCH 25 L MCHC 29 L RDW 19.0 H Plt Count Lymph % (Auto) [place] % (Auto) 10.1 H Eos % (Auto) Baso % (Auto) Lymph # [place] # 1.1 H Eos # Baso # Seg Neutrophils % 71.8 H Monocytes % (Manual) Monocytes # (Manual) D-Dimer ABG pH ABG pO2 186.5 H ABG HCO3 27.8 H ABG O2 Saturation 99.1 H ABG Base Excess ABG Hemoglobin 10.4 L Oxyhemoglobin Sodium 157 H Potassium Chloride 119.1 H Carbon Dioxide BUN 26 H Creatinine Glucose 302 H POC Glucose Lactic Acid Calcium 7.9 L Magnesium AST 85 H ALT 61 H Lactate Dehydrogenase Total Creatine Kinase C-Reactive Protein Total Protein Albumin 3.0 L Urine WBC (Auto) Urine Total Protein Digoxin Salicylates Acetaminophen 12/19/19 12/19/19 12/19/19 08:30 11:55 16:50 WBC RBC Hgb Hct MCV MCH MCHC RDW Plt Count Lymph % (Auto) [place] % (Auto) Eos % (Auto) Baso % (Auto) Lymph # [place] # Eos # Baso # Seg Neutrophils % Monocytes % (Manual) Monocytes # (Manual) D-Dimer ABG pH ABG pO2 ABG HCO3 ABG O2 Saturation ABG Base Excess ABG Hemoglobin Oxyhemoglobin Sodium Potassium Chloride Carbon Dioxide BUN Creatinine Glucose POC Glucose 264 H 251 H Lactic Acid Calcium Magnesium AST ALT Lactate Dehydrogenase Total Creatine Kinase C-Reactive Protein Total Protein Albumin Urine WBC (Auto) 7.0 H Urine Total Protein Digoxin Salicylates Acetaminophen 12/19/19 12/19/19 12/20/19 17:41 23:42 03:35 WBC RBC Hgb Hct MCV MCH MCHC RDW Plt Count Lymph % (Auto) [place] % (Auto) Eos % (Auto) Baso % (Auto) Lymph # [place] # Eos # Baso # Seg Neutrophils % Monocytes % (Manual) Monocytes # (Manual) D-Dimer ABG pH ABG pO2 ABG HCO3 27.7 H ABG O2 Saturation ABG Base Excess ABG Hemoglobin 11.6 L Oxyhemoglobin 94.9 L Sodium Potassium Chloride Carbon Dioxide BUN Creatinine Glucose POC Glucose 180 H 205 H Lactic Acid Calcium Magnesium AST ALT Lactate Dehydrogenase Total Creatine Kinase C-Reactive Protein Total Protein Albumin Urine WBC (Auto) Urine Total Protein Digoxin Salicylates Acetaminophen 12/20/19 12/20/19 12/20/19 04:45 04:45 05:27 WBC RBC Hgb 9.4 L Hct 31.4 L MCV MCH 25 L MCHC 30 L RDW 19.4 H Plt Count Lymph % (Auto) [place] % (Auto) 10.2 H Eos % (Auto) 6.0 H Baso % (Auto) Lymph # 0.9 L [place] # Eos # Baso # Seg Neutrophils % Monocytes % (Manual) Monocytes # (Manual) D-Dimer ABG pH ABG pO2 ABG HCO3 ABG O2 Saturation ABG Base Excess ABG Hemoglobin Oxyhemoglobin Sodium 153 H Potassium Chloride 114.6 H Carbon Dioxide BUN Creatinine Glucose 170 H POC Glucose 188 H Lactic Acid Calcium 7.9 L Magnesium AST ALT Lactate Dehydrogenase Total Creatine Kinase C-Reactive Protein Total Protein Albumin Urine WBC (Auto) Urine Total Protein Digoxin Salicylates Acetaminophen 12/20/19 12/20/19 12/21/19 12:26 18:20 00:20 WBC RBC Hgb Hct MCV MCH MCHC RDW Plt Count Lymph % (Auto) [place] % (Auto) Eos % (Auto) Baso % (Auto) Lymph # [place] # Eos # Baso # Seg Neutrophils % Monocytes % (Manual) Monocytes # (Manual) D-Dimer ABG pH ABG pO2 ABG HCO3 ABG O2 Saturation ABG Base Excess ABG Hemoglobin Oxyhemoglobin Sodium Potassium Chloride Carbon Dioxide BUN Creatinine Glucose POC Glucose 200 H 263 H 218 H Lactic Acid Calcium Magnesium AST ALT Lactate Dehydrogenase Total Creatine Kinase C-Reactive Protein Total Protein Albumin Urine WBC (Auto) Urine Total Protein Digoxin Salicylates Acetaminophen 12/21/19 12/21/19 12/21/19 04:38 05:26 12:35 WBC RBC Hgb Hct MCV MCH MCHC RDW Plt Count Lymph % (Auto) [place] % (Auto) Eos % (Auto) Baso % (Auto) Lymph # [place] # Eos # Baso # Seg Neutrophils % Monocytes % (Manual) Monocytes # (Manual) D-Dimer ABG pH ABG pO2 ABG HCO3 ABG O2 Saturation ABG Base Excess ABG Hemoglobin Oxyhemoglobin Sodium 149 H Potassium 3.5 L Chloride 110.5 H Carbon Dioxide BUN Creatinine Glucose 158 H POC Glucose 193 H 193 H Lactic Acid Calcium Magnesium AST ALT Lactate Dehydrogenase Total Creatine Kinase C-Reactive Protein Total Protein Albumin Urine WBC (Auto) Urine Total Protein Digoxin Salicylates Acetaminophen 12/21/19 12/22/19 12/22/19 18:29 00:03 05:15 WBC RBC Hgb 10.3 L Hct 34.7 L MCV MCH 25 L MCHC 30 L RDW 19.4 H Plt Count Lymph % (Auto) 9.0 L [place] % (Auto) 12.3 H Eos % (Auto) 5.0 H Baso % (Auto) Lymph # 0.5 L [place] # Eos # Baso # Seg Neutrophils % 73.2 H Monocytes % (Manual) Monocytes # (Manual) D-Dimer ABG pH ABG pO2 ABG HCO3 ABG O2 Saturation ABG Base Excess ABG Hemoglobin Oxyhemoglobin Sodium Potassium Chloride Carbon Dioxide BUN Creatinine Glucose POC Glucose 186 H 143 H Lactic Acid Calcium Magnesium AST ALT Lactate Dehydrogenase Total Creatine Kinase C-Reactive Protein Total Protein Albumin Urine WBC (Auto) Urine Total Protein Digoxin Salicylates Acetaminophen 12/22/19 12/22/19 12/22/19 05:15 06:02 12:13 WBC RBC Hgb Hct MCV MCH MCHC RDW Plt Count Lymph % (Auto) [place] % (Auto) Eos % (Auto) Baso % (Auto) Lymph # [place] # Eos # Baso # Seg Neutrophils % Monocytes % (Manual) Monocytes # (Manual) D-Dimer ABG pH ABG pO2 ABG HCO3 ABG O2 Saturation ABG Base Excess ABG Hemoglobin Oxyhemoglobin Sodium 152 H Potassium Chloride 113.5 H Carbon Dioxide BUN Creatinine Glucose 126 H POC Glucose 144 H 159 H Lactic Acid Calcium Magnesium AST ALT Lactate Dehydrogenase Total Creatine Kinase C-Reactive Protein Total Protein Albumin Urine WBC (Auto) Urine Total Protein Digoxin Salicylates Acetaminophen 12/22/19 12/22/19 12/23/19 18:03 23:50 05:27 WBC RBC Hgb Hct MCV MCH MCHC RDW Plt Count Lymph % (Auto) [place] % (Auto) Eos % (Auto) Baso % (Auto) Lymph # [place] # Eos # Baso # Seg Neutrophils % Monocytes % (Manual) Monocytes # (Manual) D-Dimer ABG pH ABG pO2 ABG HCO3 ABG O2 Saturation ABG Base Excess ABG Hemoglobin Oxyhemoglobin Sodium Potassium Chloride Carbon Dioxide BUN Creatinine Glucose POC Glucose 140 H 227 H 185 H Lactic Acid Calcium Magnesium AST ALT Lactate Dehydrogenase Total Creatine Kinase C-Reactive Protein Total Protein Albumin Urine WBC (Auto) Urine Total Protein Digoxin Salicylates Acetaminophen 12/23/19 12/23/19 12/23/19 12:13 16:05 16:40 WBC RBC Hgb Hct MCV MCH MCHC RDW Plt Count Lymph % (Auto) [place] % (Auto) Eos % (Auto) Baso % (Auto) Lymph # [place] # Eos # Baso # Seg Neutrophils % Monocytes % (Manual) Monocytes # (Manual) D-Dimer ABG pH 7.259 L ABG pO2 76.2 L ABG HCO3 30.6 H ABG O2 Saturation 94.6 L ABG Base Excess ABG Hemoglobin 11.5 L Oxyhemoglobin 92.2 L Sodium 163 H* D Potassium 3.4 L Chloride 120.1 H Carbon Dioxide BUN Creatinine Glucose 162 H POC Glucose 132 H Lactic Acid Calcium Magnesium AST ALT Lactate Dehydrogenase Total Creatine Kinase C-Reactive Protein Total Protein Albumin Urine WBC (Auto) Urine Total Protein Digoxin Salicylates Acetaminophen 12/23/19 12/24/19 12/24/19 17:53 00:48 04:20 WBC RBC Hgb Hct MCV MCH MCHC RDW Plt Count Lymph % (Auto) [place] % (Auto) Eos % (Auto) Baso % (Auto) Lymph # [place] # Eos # Baso # Seg Neutrophils % Monocytes % (Manual) Monocytes # (Manual) D-Dimer ABG pH ABG pO2 ABG HCO3 30.4 H ABG O2 Saturation ABG Base Excess 3.9 H ABG Hemoglobin 10.3 L Oxyhemoglobin 94.4 L Sodium Potassium Chloride Carbon Dioxide BUN Creatinine Glucose POC Glucose 180 H 174 H Lactic Acid Calcium Magnesium AST ALT Lactate Dehydrogenase Total Creatine Kinase C-Reactive Protein Total Protein Albumin Urine WBC (Auto) Urine Total Protein Digoxin Salicylates Acetaminophen 12/24/19 12/24/19 12/24/19 04:53 04:53 11:50 WBC RBC Hgb 9.7 L Hct 33.2 L MCV MCH 25 L MCHC 29 L RDW 20.1 H Plt Count Lymph % (Auto) [place] % (Auto) Eos % (Auto) Baso % (Auto) Lymph # [place] # Eos # Baso # Seg Neutrophils % Monocytes % (Manual) 15.0 H Monocytes # (Manual) 0.9 H D-Dimer ABG pH ABG pO2 ABG HCO3 ABG O2 Saturation ABG Base Excess ABG Hemoglobin Oxyhemoglobin Sodium 163 H* Potassium 3.2 L Chloride 122.6 H Carbon Dioxide BUN Creatinine Glucose 168 H POC Glucose 190 H Lactic Acid Calcium Magnesium AST ALT Lactate Dehydrogenase Total Creatine Kinase C-Reactive Protein Total Protein Albumin Urine WBC (Auto) Urine Total Protein Digoxin Salicylates Acetaminophen 12/24/19 12/24/19 12/24/19 15:00 16:28 21:15 WBC RBC Hgb Hct MCV MCH MCHC RDW Plt Count Lymph % (Auto) [place] % (Auto) Eos % (Auto) Baso % (Auto) Lymph # [place] # Eos # Baso # Seg Neutrophils % Monocytes % (Manual) Monocytes # (Manual) D-Dimer ABG pH ABG pO2 ABG HCO3 ABG O2 Saturation ABG Base Excess ABG Hemoglobin Oxyhemoglobin Sodium 165 H* D 163 H* Potassium Chloride Carbon Dioxide BUN Creatinine Glucose POC Glucose 160 H Lactic Acid Calcium Magnesium AST ALT Lactate Dehydrogenase Total Creatine Kinase C-Reactive Protein Total Protein Albumin Urine WBC (Auto) Urine Total Protein Digoxin Salicylates Acetaminophen 12/25/19 12/25/19 12/25/19 00:31 05:38 05:46 WBC RBC Hgb 9.7 L Hct 32.5 L MCV MCH 25 L MCHC 30 L RDW 19.4 H Plt Count Lymph % (Auto) [place] % (Auto) Eos % (Auto) Baso % (Auto) Lymph # [place] # Eos # Baso # Seg Neutrophils % Monocytes % (Manual) Monocytes # (Manual) D-Dimer ABG pH ABG pO2 ABG HCO3 ABG O2 Saturation ABG Base Excess ABG Hemoglobin Oxyhemoglobin Sodium Potassium Chloride Carbon Dioxide BUN Creatinine Glucose POC Glucose 182 H 194 H Lactic Acid Calcium Magnesium AST ALT Lactate Dehydrogenase Total Creatine Kinase C-Reactive Protein Total Protein Albumin Urine WBC (Auto) Urine Total Protein Digoxin Salicylates Acetaminophen 12/25/19 12/25/19 12/25/19 05:46 11:35 11:38 WBC RBC Hgb Hct MCV MCH MCHC RDW Plt Count Lymph % (Auto) [place] % (Auto) Eos % (Auto) Baso % (Auto) Lymph # [place] # Eos # Baso # Seg Neutrophils % Monocytes % (Manual) Monocytes # (Manual) D-Dimer ABG pH 7.330 L ABG pO2 65.7 L ABG HCO3 32.6 H ABG O2 Saturation 92.5 L ABG Base Excess 5.3 H ABG Hemoglobin 10.4 L Oxyhemoglobin 90.0 L Sodium 166 H* Potassium 2.9 L* Chloride 124.5 H Carbon Dioxide BUN Creatinine Glucose 190 H POC Glucose 192 H Lactic Acid Calcium Magnesium AST ALT Lactate Dehydrogenase Total Creatine Kinase C-Reactive Protein Total Protein Albumin Urine WBC (Auto) Urine Total Protein Digoxin Salicylates Acetaminophen 12/25/19 12/25/19 12/25/19 13:01 16:45 17:20 WBC RBC Hgb Hct MCV MCH MCHC RDW Plt Count Lymph % (Auto) [place] % (Auto) Eos % (Auto) Baso % (Auto) Lymph # [place] # Eos # Baso # Seg Neutrophils % Monocytes % (Manual) Monocytes # (Manual) D-Dimer ABG pH 7.296 L ABG pO2 101.5 H ABG HCO3 33.2 H ABG O2 Saturation ABG Base Excess 5.3 H ABG Hemoglobin 9.6 L Oxyhemoglobin 94.6 L Sodium 174 H* Potassium Chloride Carbon Dioxide BUN Creatinine Glucose POC Glucose Lactic Acid Calcium Magnesium AST ALT Lactate Dehydrogenase Total Creatine Kinase C-Reactive Protein Total Protein Albumin Urine WBC (Auto) Urine Total Protein < 4 L Digoxin Salicylates Acetaminophen 12/25/19 12/25/19 12/26/19 17:48 18:50 00:43 WBC RBC Hgb Hct MCV MCH MCHC RDW Plt Count Lymph % (Auto) [place] % (Auto) Eos % (Auto) Baso % (Auto) Lymph # [place] # Eos # Baso # Seg Neutrophils % Monocytes % (Manual) Monocytes # (Manual) D-Dimer ABG pH ABG pO2 ABG HCO3 ABG O2 Saturation ABG Base Excess ABG Hemoglobin Oxyhemoglobin Sodium 166 H* 164 H* Potassium Chloride 127.3 H Carbon Dioxide BUN Creatinine Glucose 220 H POC Glucose 252 H Lactic Acid Calcium Magnesium AST ALT Lactate Dehydrogenase Total Creatine Kinase C-Reactive Protein Total Protein Albumin Urine WBC (Auto) Urine Total Protein Digoxin Salicylates Acetaminophen 12/26/19 12/26/19 12/26/19 05:31 08:07 08:07 WBC 4.3 L RBC Hgb 9.6 L Hct 32.1 L MCV MCH 26 L MCHC 30 L RDW 20.5 H Plt Count Lymph % (Auto) [place] % (Auto) Eos % (Auto) Baso % (Auto) Lymph # [place] # Eos # Baso # Seg Neutrophils % Monocytes % (Manual) Monocytes # (Manual) D-Dimer ABG pH ABG pO2 ABG HCO3 ABG O2 Saturation ABG Base Excess ABG Hemoglobin Oxyhemoglobin Sodium 162 H* Potassium Chloride 122.1 H Carbon Dioxide BUN Creatinine Glucose 247 H POC Glucose 187 H Lactic Acid Calcium Magnesium AST ALT Lactate Dehydrogenase Total Creatine Kinase C-Reactive Protein Total Protein Albumin Urine WBC (Auto) Urine Total Protein Digoxin Salicylates Acetaminophen 12/26/19 12/26/19 12/26/19 08:07 12:20 16:25 WBC RBC Hgb Hct MCV MCH MCHC RDW Plt Count Lymph % (Auto) [place] % (Auto) Eos % (Auto) Baso % (Auto) Lymph # [place] # Eos # Baso # Seg Neutrophils % Monocytes % (Manual) Monocytes # (Manual) D-Dimer ABG pH 7.290 L ABG pO2 73.2 L ABG HCO3 33.2 H ABG O2 Saturation 94.9 L ABG Base Excess 5.2 H ABG Hemoglobin 10.0 L Oxyhemoglobin 92.5 L Sodium 159 H Potassium Chloride Carbon Dioxide BUN Creatinine Glucose POC Glucose 234 H Lactic Acid Calcium Magnesium AST ALT Lactate Dehydrogenase Total Creatine Kinase C-Reactive Protein Total Protein Albumin Urine WBC (Auto) Urine Total Protein Digoxin Salicylates Acetaminophen 12/26/19 12/26/19 12/26/19 17:33 22:35 23:30 WBC RBC Hgb Hct MCV MCH MCHC RDW Plt Count Lymph % (Auto) [place] % (Auto) Eos % (Auto) Baso % (Auto) Lymph # [place] # Eos # Baso # Seg Neutrophils % Monocytes % (Manual) Monocytes # (Manual) D-Dimer ABG pH ABG pO2 ABG HCO3 ABG O2 Saturation ABG Base Excess ABG Hemoglobin Oxyhemoglobin Sodium Potassium Chloride Carbon Dioxide BUN Creatinine Glucose POC Glucose 244 H 208 H 287 H Lactic Acid Calcium Magnesium AST ALT Lactate Dehydrogenase Total Creatine Kinase C-Reactive Protein Total Protein Albumin Urine WBC (Auto) Urine Total Protein Digoxin Salicylates Acetaminophen 12/27/19 12/27/19 12/27/19 03:48 03:48 03:48 WBC RBC Hgb 10.1 L Hct 35.4 L MCV MCH 25 L MCHC 29 L RDW 20.1 H Plt Count Lymph % (Auto) [place] % (Auto) Eos % (Auto) Baso % (Auto) Lymph # [place] # Eos # Baso # Seg Neutrophils % Monocytes % (Manual) Monocytes # (Manual) D-Dimer ABG pH ABG pO2 ABG HCO3 ABG O2 Saturation ABG Base Excess ABG Hemoglobin Oxyhemoglobin Sodium 160 H Potassium Chloride 118.8 H Carbon Dioxide 33 H BUN Creatinine Glucose 217 H POC Glucose Lactic Acid Calcium Magnesium 2.70 H AST ALT Lactate Dehydrogenase Total Creatine Kinase C-Reactive Protein Total Protein Albumin Urine WBC (Auto) Urine Total Protein Digoxin Salicylates Acetaminophen 12/27/19 12/27/19 12/27/19 05:50 11:58 16:05 WBC RBC Hgb Hct MCV MCH MCHC RDW Plt Count Lymph % (Auto) [place] % (Auto) Eos % (Auto) Baso % (Auto) Lymph # [place] # Eos # Baso # Seg Neutrophils % Monocytes % (Manual) Monocytes # (Manual) D-Dimer ABG pH 7.180 L* ABG pO2 73.6 L ABG HCO3 34.8 H ABG O2 Saturation 92.7 L ABG Base Excess 3.8 H ABG Hemoglobin 12.0 L Oxyhemoglobin 90.2 L Sodium Potassium Chloride Carbon Dioxide BUN Creatinine Glucose POC Glucose 224 H 218 H Lactic Acid Calcium Magnesium AST ALT Lactate Dehydrogenase Total Creatine Kinase C-Reactive Protein Total Protein Albumin Urine WBC (Auto) Urine Total Protein Digoxin Salicylates Acetaminophen 12/27/19 12/27/19 12/27/19 18:05 19:50 21:53 WBC RBC Hgb Hct MCV MCH MCHC RDW Plt Count Lymph % (Auto) [place] % (Auto) Eos % (Auto) Baso % (Auto) Lymph # [place] # Eos # Baso # Seg Neutrophils % Monocytes % (Manual) Monocytes # (Manual) D-Dimer ABG pH 7.328 L ABG pO2 49.9 L ABG HCO3 33.3 H ABG O2 Saturation 87.1 L ABG Base Excess 5.7 H ABG Hemoglobin 11.2 L Oxyhemoglobin 84.8 L Sodium Potassium Chloride Carbon Dioxide BUN Creatinine Glucose POC Glucose 214 H 178 H Lactic Acid Calcium Magnesium AST ALT Lactate Dehydrogenase Total Creatine Kinase C-Reactive Protein Total Protein Albumin Urine WBC (Auto) Urine Total Protein Digoxin Salicylates Acetaminophen 12/28/19 12/28/19 12/28/19 00:42 04:37 04:37 WBC RBC Hgb 9.8 L Hct 33.5 L MCV MCH 25 L MCHC 29 L RDW 21.1 H Plt Count Lymph % (Auto) [place] % (Auto) Eos % (Auto) Baso % (Auto) Lymph # [place] # Eos # Baso # Seg Neutrophils % Monocytes % (Manual) Monocytes # (Manual) D-Dimer ABG pH ABG pO2 ABG HCO3 ABG O2 Saturation ABG Base Excess ABG Hemoglobin Oxyhemoglobin Sodium 157 H Potassium 3.4 L Chloride 117.5 H Carbon Dioxide BUN Creatinine Glucose 193 H POC Glucose 157 H Lactic Acid Calcium Magnesium AST ALT Lactate Dehydrogenase Total Creatine Kinase C-Reactive Protein Total Protein Albumin Urine WBC (Auto) Urine Total Protein Digoxin Salicylates Acetaminophen 12/28/19 12/28/19 12/28/19 04:52 05:19 12:05 WBC RBC Hgb Hct MCV MCH MCHC RDW Plt Count Lymph % (Auto) [place] % (Auto) Eos % (Auto) Baso % (Auto) Lymph # [place] # Eos # Baso # Seg Neutrophils % Monocytes % (Manual) Monocytes # (Manual) D-Dimer ABG pH ABG pO2 51.7 L ABG HCO3 28.7 H ABG O2 Saturation 89.9 L ABG Base Excess 4.1 H ABG Hemoglobin 9.7 L Oxyhemoglobin 87.7 L Sodium Potassium Chloride Carbon Dioxide BUN Creatinine Glucose POC Glucose 202 H 248 H Lactic Acid Calcium Magnesium AST ALT Lactate Dehydrogenase Total Creatine Kinase C-Reactive Protein Total Protein Albumin Urine WBC (Auto) Urine Total Protein Digoxin Salicylates Acetaminophen 12/28/19 12/28/19 12/28/19 18:11 21:15 23:22 WBC RBC Hgb Hct MCV MCH MCHC RDW Plt Count Lymph % (Auto) [place] % (Auto) Eos % (Auto) Baso % (Auto) Lymph # [place] # Eos # Baso # Seg Neutrophils % Monocytes % (Manual) Monocytes # (Manual) D-Dimer ABG pH ABG pO2 ABG HCO3 ABG O2 Saturation ABG Base Excess ABG Hemoglobin Oxyhemoglobin Sodium Potassium Chloride Carbon Dioxide BUN Creatinine Glucose POC Glucose 226 H 217 H 227 H Lactic Acid Calcium Magnesium AST ALT Lactate Dehydrogenase Total Creatine Kinase C-Reactive Protein Total Protein Albumin Urine WBC (Auto) Urine Total Protein Digoxin Salicylates Acetaminophen 06/12/29/19 12/29/19 04:09 04:59 04:59 WBC 11.1 H RBC Hgb 9.3 L Hct 31.1 L MCV 81 L MCH 24 L MCHC 30 L RDW 19.9 H Plt Count Lymph % (Auto) [place] % (Auto) Eos % (Auto) Baso % (Auto) Lymph # [place] # Eos # Baso # Seg Neutrophils % Monocytes % (Manual) Monocytes # (Manual) D-Dimer ABG pH 7.473 H ABG pO2 126.1 H ABG HCO3 29.2 H ABG O2 Saturation ABG Base Excess 5.1 H ABG Hemoglobin 8.4 L Oxyhemoglobin Sodium 157 H Potassium 3.2 L Chloride 118.2 H Carbon Dioxide BUN Creatinine 1.7 H Glucose 229 H POC Glucose Lactic Acid Calcium Magnesium AST ALT Lactate Dehydrogenase Total Creatine Kinase C-Reactive Protein Total Protein Albumin Urine WBC (Auto) Urine Total Protein Digoxin Salicylates Acetaminophen 12/29/19 12/29/19 12/29/19 05:15 12:13 17:59 WBC RBC Hgb Hct MCV MCH MCHC RDW Plt Count Lymph % (Auto) [place] % (Auto) Eos % (Auto) Baso % (Auto) Lymph # [place] # Eos # Baso # Seg Neutrophils % Monocytes % (Manual) Monocytes # (Manual) D-Dimer ABG pH ABG pO2 ABG HCO3 ABG O2 Saturation ABG Base Excess ABG Hemoglobin Oxyhemoglobin Sodium Potassium Chloride Carbon Dioxide BUN Creatinine Glucose POC Glucose 221 H 392 H 365 H Lactic Acid Calcium Magnesium AST ALT Lactate Dehydrogenase Total Creatine Kinase C-Reactive Protein Total Protein Albumin Urine WBC (Auto) Urine Total Protein Digoxin Salicylates Acetaminophen 12/29/19 12/29/19 12/30/19 20:25 23:38 04:45 WBC RBC Hgb Hct MCV MCH MCHC RDW Plt Count Lymph % (Auto) [place] % (Auto) Eos % (Auto) Baso % (Auto) Lymph # [place] # Eos # Baso # Seg Neutrophils % Monocytes % (Manual) Monocytes # (Manual) D-Dimer ABG pH 7.261 L 7.343 L ABG pO2 60.3 L 54.3 L ABG HCO3 32.1 H 30.9 H ABG O2 Saturation 87.6 L 88.3 L ABG Base Excess 3.7 H 4.0 H ABG Hemoglobin 9.7 L 11.6 L Oxyhemoglobin 85.2 L 86.0 L Sodium Potassium Chloride Carbon Dioxide BUN Creatinine Glucose POC Glucose 402 H Lactic Acid Calcium Magnesium AST ALT Lactate Dehydrogenase Total Creatine Kinase C-Reactive Protein Total Protein Albumin Urine WBC (Auto) Urine Total Protein Digoxin Salicylates Acetaminophen 12/30/19 12/30/19 12/30/19 05:06 05:06 05:06 WBC 11.7 H RBC Hgb 9.4 L Hct 32.4 L MCV 83 L MCH 24 L MCHC 29 L RDW 20.2 H Plt Count Lymph % (Auto) [place] % (Auto) Eos % (Auto) Baso % (Auto) Lymph # [place] # Eos # Baso # Seg Neutrophils % Monocytes % (Manual) Monocytes # (Manual) D-Dimer ABG pH ABG pO2 ABG HCO3 ABG O2 Saturation ABG Base Excess ABG Hemoglobin Oxyhemoglobin Sodium 159 H Potassium 3.2 L Chloride 120.1 H Carbon Dioxide 31 H BUN Creatinine 1.9 H Glucose 404 H POC Glucose Lactic Acid Calcium Magnesium 2.60 H AST ALT Lactate Dehydrogenase Total Creatine Kinase C-Reactive Protein Total Protein Albumin Urine WBC (Auto) Urine Total Protein Digoxin Salicylates Acetaminophen 12/30/19 12/30/19 12/30/19 06:26 12:29 13:44 WBC RBC Hgb Hct MCV MCH MCHC RDW Plt Count Lymph % (Auto) [place] % (Auto) Eos % (Auto) Baso % (Auto) Lymph # [place] # Eos # Baso # Seg Neutrophils % Monocytes % (Manual) Monocytes # (Manual) D-Dimer ABG pH ABG pO2 ABG HCO3 ABG O2 Saturation ABG Base Excess ABG Hemoglobin Oxyhemoglobin Sodium Potassium Chloride Carbon Dioxide BUN Creatinine Glucose POC Glucose 399 H 469 H > 500 H Lactic Acid Calcium Magnesium AST ALT Lactate Dehydrogenase Total Creatine Kinase C-Reactive Protein Total Protein Albumin Urine WBC (Auto) Urine Total Protein Digoxin Salicylates Acetaminophen 12/30/19 12/30/19 12/30/19 13:51 16:32 18:05 WBC RBC Hgb Hct MCV MCH MCHC RDW Plt Count Lymph % (Auto) [place] % (Auto) Eos % (Auto) Baso % (Auto) Lymph # [place] # Eos # Baso # Seg Neutrophils % Monocytes % (Manual) Monocytes # (Manual) D-Dimer ABG pH ABG pO2 ABG HCO3 ABG O2 Saturation ABG Base Excess ABG Hemoglobin Oxyhemoglobin Sodium Potassium Chloride Carbon Dioxide BUN Creatinine Glucose POC Glucose > 500 H 445 H 429 H Lactic Acid Calcium Magnesium AST ALT Lactate Dehydrogenase Total Creatine Kinase C-Reactive Protein Total Protein Albumin Urine WBC (Auto) Urine Total Protein Digoxin Salicylates Acetaminophen 12/30/19 12/30/19 12/31/19 21:42 Unknown 00:00 WBC RBC Hgb Hct MCV MCH MCHC RDW Plt Count Lymph % (Auto) [place] % (Auto) Eos % (Auto) Baso % (Auto) Lymph # [place] # Eos # Baso # Seg Neutrophils % Monocytes % (Manual) Monocytes # (Manual) D-Dimer ABG pH ABG pO2 ABG HCO3 ABG O2 Saturation ABG Base Excess ABG Hemoglobin Oxyhemoglobin Sodium Potassium Chloride Carbon Dioxide BUN Creatinine Glucose 498 H POC Glucose 371 H 452 H Lactic Acid Calcium Magnesium AST ALT Lactate Dehydrogenase Total Creatine Kinase C-Reactive Protein Total Protein Albumin Urine WBC (Auto) Urine Total Protein Digoxin Salicylates Acetaminophen 12/31/19 12/31/19 12/31/19 04:31 05:42 08:01 WBC RBC Hgb Hct MCV MCH MCHC RDW Plt Count Lymph % (Auto) [place] % (Auto) Eos % (Auto) Baso % (Auto) Lymph # [place] # Eos # Baso # Seg Neutrophils % Monocytes % (Manual) Monocytes # (Manual) D-Dimer ABG pH 7.251 L ABG pO2 62.4 L ABG HCO3 31.1 H ABG O2 Saturation 88.7 L ABG Base Excess ABG Hemoglobin 8.7 L Oxyhemoglobin 86.4 L Sodium Potassium Chloride Carbon Dioxide BUN Creatinine Glucose POC Glucose 443 H 443 H Lactic Acid Calcium Magnesium AST ALT Lactate Dehydrogenase Total Creatine Kinase C-Reactive Protein Total Protein Albumin Urine WBC (Auto) Urine Total Protein Digoxin Salicylates Acetaminophen 12/31/19 12/31/19 12/31/19 09:08 10:00 11:50 WBC RBC Hgb Hct MCV MCH MCHC RDW Plt Count Lymph % (Auto) [place] % (Auto) Eos % (Auto) Baso % (Auto) Lymph # [place] # Eos # Baso # Seg Neutrophils % Monocytes % (Manual) Monocytes # (Manual) D-Dimer ABG pH 7.325 L ABG pO2 97.2 H ABG HCO3 30.1 H ABG O2 Saturation ABG Base Excess 3.4 H ABG Hemoglobin 8.3 L Oxyhemoglobin 94.7 L Sodium 151 H D Potassium 3.2 L Chloride 113.0 H Carbon Dioxide BUN 23 H Creatinine 1.8 H Glucose 373 H POC Glucose 465 H Lactic Acid Calcium Magnesium AST ALT Lactate Dehydrogenase Total Creatine Kinase C-Reactive Protein Total Protein Albumin Urine WBC (Auto) Urine Total Protein Digoxin Salicylates Acetaminophen 12/31/19 12/31/19 12/31/19 12:25 13:33 18:30 WBC RBC Hgb Hct MCV MCH MCHC RDW Plt Count Lymph % (Auto) [place] % (Auto) Eos % (Auto) Baso % (Auto) Lymph # [place] # Eos # Baso # Seg Neutrophils % Monocytes % (Manual) Monocytes # (Manual) D-Dimer ABG pH ABG pO2 ABG HCO3 ABG O2 Saturation ABG Base Excess ABG Hemoglobin Oxyhemoglobin Sodium Potassium Chloride Carbon Dioxide BUN Creatinine Glucose POC Glucose 379 H 311 H 349 H Lactic Acid Calcium Magnesium AST ALT Lactate Dehydrogenase Total Creatine Kinase C-Reactive Protein Total Protein Albumin Urine WBC (Auto) Urine Total Protein Digoxin Salicylates Acetaminophen 12/31/19 12/31/19 01/01/20 22:29 23:30 02:58 WBC RBC Hgb Hct MCV MCH MCHC RDW Plt Count Lymph % (Auto) [place] % (Auto) Eos % (Auto) Baso % (Auto) Lymph # [place] # Eos # Baso # Seg Neutrophils % Monocytes % (Manual) Monocytes # (Manual) D-Dimer ABG pH ABG pO2 ABG HCO3 ABG O2 Saturation ABG Base Excess ABG Hemoglobin Oxyhemoglobin Sodium Potassium Chloride Carbon Dioxide BUN Creatinine Glucose POC Glucose 256 H 266 H 248 H Lactic Acid Calcium Magnesium AST ALT Lactate Dehydrogenase Total Creatine Kinase C-Reactive Protein Total Protein Albumin Urine WBC (Auto) Urine Total Protein Digoxin Salicylates Acetaminophen 01/01/20 01/01/20 01/01/20 04:19 06:56 10:52 WBC RBC Hgb Hct MCV MCH MCHC RDW Plt Count Lymph % (Auto) [place] % (Auto) Eos % (Auto) Baso % (Auto) Lymph # [place] # Eos # Baso # Seg Neutrophils % Monocytes % (Manual) Monocytes # (Manual) D-Dimer ABG pH ABG pO2 90.7 H ABG HCO3 29.1 H ABG O2 Saturation ABG Base Excess 3.8 H ABG Hemoglobin 8.1 L Oxyhemoglobin 94.5 L Sodium Potassium Chloride Carbon Dioxide BUN Creatinine Glucose POC Glucose 303 H 244 H Lactic Acid Calcium Magnesium AST ALT Lactate Dehydrogenase Total Creatine Kinase C-Reactive Protein Total Protein Albumin Urine WBC (Auto) Urine Total Protein Digoxin Salicylates Acetaminophen 01/01/20 01/01/20 01/01/20 13:39 14:49 18:42 WBC RBC Hgb Hct MCV MCH MCHC RDW Plt Count Lymph % (Auto) [place] % (Auto) Eos % (Auto) Baso % (Auto) Lymph # [place] # Eos # Baso # Seg Neutrophils % Monocytes % (Manual) Monocytes # (Manual) D-Dimer ABG pH ABG pO2 ABG HCO3 ABG O2 Saturation ABG Base Excess ABG Hemoglobin Oxyhemoglobin Sodium 147 H Potassium Chloride 107.1 H Carbon Dioxide BUN 28 H Creatinine Glucose 207 H POC Glucose 263 H 188 H Lactic Acid Calcium Magnesium AST ALT Lactate Dehydrogenase Total Creatine Kinase C-Reactive Protein Total Protein Albumin Urine WBC (Auto) Urine Total Protein Digoxin Salicylates Acetaminophen 01/02/20 01/02/20 01/02/20 02:22 03:58 05:00 WBC RBC 3.31 L Hgb 8.0 L Hct 26.9 L MCV 81 L MCH 24 L MCHC 30 L RDW 19.4 H Plt Count Lymph % (Auto) [place] % (Auto) 9.4 H Eos % (Auto) 11.2 H Baso % (Auto) Lymph # [place] # Eos # 0.8 H Baso # Seg Neutrophils % Monocytes % (Manual) Monocytes # (Manual) D-Dimer ABG pH ABG pO2 63.0 L ABG HCO3 31.6 H ABG O2 Saturation 91.8 L ABG Base Excess 5.5 H ABG Hemoglobin 8.6 L Oxyhemoglobin 89.6 L Sodium Potassium Chloride Carbon Dioxide BUN Creatinine Glucose POC Glucose 196 H Lactic Acid Calcium Magnesium AST ALT Lactate Dehydrogenase Total Creatine Kinase C-Reactive Protein Total Protein Albumin Urine WBC (Auto) Urine Total Protein Digoxin Salicylates Acetaminophen 01/02/20 01/02/20 01/02/20 05:40 10:26 13:57 WBC RBC Hgb Hct MCV MCH MCHC RDW Plt Count Lymph % (Auto) [place] % (Auto) Eos % (Auto) Baso % (Auto) Lymph # [place] # Eos # Baso # Seg Neutrophils % Monocytes % (Manual) Monocytes # (Manual) D-Dimer ABG pH ABG pO2 ABG HCO3 ABG O2 Saturation ABG Base Excess ABG Hemoglobin Oxyhemoglobin Sodium Potassium Chloride Carbon Dioxide BUN Creatinine Glucose POC Glucose 189 H 157 H 178 H Lactic Acid Calcium Magnesium AST ALT Lactate Dehydrogenase Total Creatine Kinase C-Reactive Protein Total Protein Albumin Urine WBC (Auto) Urine Total Protein Digoxin Salicylates Acetaminophen 01/02/20 01/03/20 01/03/20 21:27 03:12 05:26 WBC RBC Hgb Hct MCV MCH MCHC RDW Plt Count Lymph % (Auto) [place] % (Auto) Eos % (Auto) Baso % (Auto) Lymph # [place] # Eos # Baso # Seg Neutrophils % Monocytes % (Manual) Monocytes # (Manual) D-Dimer ABG pH 7.473 H ABG pO2 109.6 H ABG HCO3 30.4 H ABG O2 Saturation ABG Base Excess 6.2 H ABG Hemoglobin 9.9 L Oxyhemoglobin Sodium Potassium Chloride Carbon Dioxide BUN Creatinine Glucose POC Glucose 131 H 133 H Lactic Acid Calcium Magnesium AST ALT Lactate Dehydrogenase Total Creatine Kinase C-Reactive Protein Total Protein Albumin Urine WBC (Auto) Urine Total Protein Digoxin Salicylates Acetaminophen 01/03/20 01/03/20 01/03/20 05:40 05:40 15:01 WBC RBC 3.45 L Hgb 8.3 L Hct 27.3 L MCV 79 L MCH 24 L MCHC 30 L RDW 19.3 H Plt Count Lymph % (Auto) [place] % (Auto) Eos % (Auto) Baso % (Auto) Lymph # [place] # Eos # Baso # Seg Neutrophils % Monocytes % (Manual) Monocytes # (Manual) D-Dimer ABG pH ABG pO2 ABG HCO3 ABG O2 Saturation ABG Base Excess ABG Hemoglobin Oxyhemoglobin Sodium 151 H Potassium Chloride 111.8 H Carbon Dioxide 31 H BUN 37 H Creatinine 1.8 H Glucose 187 H POC Glucose 164 H Lactic Acid Calcium Magnesium AST ALT Lactate Dehydrogenase Total Creatine Kinase C-Reactive Protein Total Protein Albumin Urine WBC (Auto) Urine Total Protein Digoxin Salicylates Acetaminophen 01/03/20 01/03/20 01/04/20 18:15 22:45 02:11 WBC RBC Hgb Hct MCV MCH MCHC RDW Plt Count Lymph % (Auto) [place] % (Auto) Eos % (Auto) Baso % (Auto) Lymph # [place] # Eos # Baso # Seg Neutrophils % Monocytes % (Manual) Monocytes # (Manual) D-Dimer ABG pH ABG pO2 ABG HCO3 ABG O2 Saturation ABG Base Excess ABG Hemoglobin Oxyhemoglobin Sodium Potassium Chloride Carbon Dioxide BUN Creatinine Glucose POC Glucose 184 H 176 H 206 H Lactic Acid Calcium Magnesium AST ALT Lactate Dehydrogenase Total Creatine Kinase C-Reactive Protein Total Protein Albumin Urine WBC (Auto) Urine Total Protein Digoxin Salicylates Acetaminophen 01/04/20 01/04/20 01/04/20 03:16 05:15 10:53 WBC RBC Hgb Hct MCV MCH MCHC RDW Plt Count Lymph % (Auto) [place] % (Auto) Eos % (Auto) Baso % (Auto) Lymph # [place] # Eos # Baso # Seg Neutrophils % Monocytes % (Manual) Monocytes # (Manual) D-Dimer ABG pH 7.282 L ABG pO2 73.2 L ABG HCO3 ABG O2 Saturation 94.5 L ABG Base Excess -6.4 L ABG Hemoglobin 10.9 L Oxyhemoglobin 92.1 L Sodium Potassium Chloride Carbon Dioxide BUN Creatinine Glucose POC Glucose 139 H 224 H Lactic Acid Calcium Magnesium AST ALT Lactate Dehydrogenase Total Creatine Kinase C-Reactive Protein Total Protein Albumin Urine WBC (Auto) Urine Total Protein Digoxin Salicylates Acetaminophen 01/04/20 01/04/20 01/04/20 15:47 18:05 22:07 WBC RBC Hgb Hct MCV MCH MCHC RDW Plt Count Lymph % (Auto) [place] % (Auto) Eos % (Auto) Baso % (Auto) Lymph # [place] # Eos # Baso # Seg Neutrophils % Monocytes % (Manual) Monocytes # (Manual) D-Dimer ABG pH ABG pO2 ABG HCO3 ABG O2 Saturation ABG Base Excess ABG Hemoglobin Oxyhemoglobin Sodium Potassium Chloride Carbon Dioxide BUN Creatinine Glucose POC Glucose 135 H 117 H 108 H Lactic Acid Calcium Magnesium AST ALT Lactate Dehydrogenase Total Creatine Kinase C-Reactive Protein Total Protein Albumin Urine WBC (Auto) Urine Total Protein Digoxin Salicylates Acetaminophen 01/04/20 01/04/20 01/05/20 Unknown Unknown 02:04 WBC RBC 3.46 L Hgb 8.2 L Hct 27.8 L MCV 80 L MCH 24 L MCHC 30 L RDW 19.7 H Plt Count Lymph % (Auto) [place] % (Auto) Eos % (Auto) Baso % (Auto) Lymph # [place] # Eos # Baso # Seg Neutrophils % Monocytes % (Manual) Monocytes # (Manual) D-Dimer ABG pH ABG pO2 ABG HCO3 ABG O2 Saturation ABG Base Excess ABG Hemoglobin Oxyhemoglobin Sodium 150 H Potassium Chloride 110 H Carbon Dioxide 32 H BUN 32 H Creatinine Glucose 309 H POC Glucose 140 H Lactic Acid Calcium Magnesium AST ALT Lactate Dehydrogenase Total Creatine Kinase C-Reactive Protein Total Protein Albumin Urine WBC (Auto) Urine Total Protein Digoxin Salicylates Acetaminophen 01/05/20 01/05/20 01/05/20 03:31 03:36 03:36 WBC RBC 3.46 L Hgb 8.4 L Hct 26.9 L MCV 78 L MCH 24 L MCHC 31 L RDW 19.0 H Plt Count Lymph % (Auto) [place] % (Auto) Eos % (Auto) Baso % (Auto) Lymph # [place] # Eos # Baso # Seg Neutrophils % Monocytes % (Manual) Monocytes # (Manual) D-Dimer ABG pH 7.454 H ABG pO2 113.0 H ABG HCO3 30.5 H ABG O2 Saturation ABG Base Excess 6.0 H ABG Hemoglobin 8.5 L Oxyhemoglobin Sodium 150 H Potassium Chloride 110.3 H Carbon Dioxide BUN 30 H Creatinine Glucose 148 H POC Glucose Lactic Acid Calcium Magnesium AST ALT Lactate Dehydrogenase Total Creatine Kinase C-Reactive Protein Total Protein Albumin Urine WBC (Auto) Urine Total Protein Digoxin Salicylates Acetaminophen 01/05/20 01/05/20 01/05/20 05:21 09:56 11:45 WBC RBC Hgb Hct MCV MCH MCHC RDW Plt Count Lymph % (Auto) [place] % (Auto) Eos % (Auto) Baso % (Auto) Lymph # [place] # Eos # Baso # Seg Neutrophils % Monocytes % (Manual) Monocytes # (Manual) D-Dimer ABG pH ABG pO2 ABG HCO3 ABG O2 Saturation ABG Base Excess ABG Hemoglobin Oxyhemoglobin Sodium Potassium Chloride Carbon Dioxide BUN Creatinine Glucose POC Glucose 142 H 129 H 174 H Lactic Acid Calcium Magnesium AST ALT Lactate Dehydrogenase Total Creatine Kinase C-Reactive Protein Total Protein Albumin Urine WBC (Auto) Urine Total Protein Digoxin Salicylates Acetaminophen 01/05/20 01/05/20 01/05/20 13:30 14:00 17:41 WBC RBC Hgb Hct MCV MCH MCHC RDW Plt Count Lymph % (Auto) [place] % (Auto) Eos % (Auto) Baso % (Auto) Lymph # [place] # Eos # Baso # Seg Neutrophils % Monocytes % (Manual) Monocytes # (Manual) D-Dimer ABG pH ABG pO2 ABG HCO3 ABG O2 Saturation ABG Base Excess ABG Hemoglobin Oxyhemoglobin Sodium Potassium Chloride Carbon Dioxide BUN 26 H Creatinine 1.6 H Glucose 302 H POC Glucose 168 H 136 H Lactic Acid Calcium Magnesium AST ALT Lactate Dehydrogenase Total Creatine Kinase C-Reactive Protein Total Protein Albumin Urine WBC (Auto) Urine Total Protein Digoxin Salicylates Acetaminophen 01/05/20 01/05/20 01/06/20 20:38 23:32 03:50 WBC RBC Hgb Hct MCV MCH MCHC RDW Plt Count Lymph % (Auto) [place] % (Auto) Eos % (Auto) Baso % (Auto) Lymph # [place] # Eos # Baso # Seg Neutrophils % Monocytes % (Manual) Monocytes # (Manual) D-Dimer ABG pH ABG pO2 76.2 L ABG HCO3 30.1 H ABG O2 Saturation ABG Base Excess 5.1 H ABG Hemoglobin 9.5 L Oxyhemoglobin 93.8 L Sodium Potassium Chloride Carbon Dioxide BUN Creatinine Glucose POC Glucose 124 H 163 H Lactic Acid Calcium Magnesium AST ALT Lactate Dehydrogenase Total Creatine Kinase C-Reactive Protein Total Protein Albumin Urine WBC (Auto) Urine Total Protein Digoxin Salicylates Acetaminophen 01/06/20 01/06/20 01/06/20 04:09 04:58 04:58 WBC RBC Hgb 8.8 L Hct 28.7 L MCV 78 L MCH 24 L MCHC 31 L RDW 18.7 H Plt Count 522 H Lymph % (Auto) [place] % (Auto) Eos % (Auto) Baso % (Auto) Lymph # [place] # Eos # Baso # Seg Neutrophils % Monocytes % (Manual) Monocytes # (Manual) D-Dimer ABG pH ABG pO2 ABG HCO3 ABG O2 Saturation ABG Base Excess ABG Hemoglobin Oxyhemoglobin Sodium 150 H D Potassium Chloride 109.3 H Carbon Dioxide BUN 25 H Creatinine Glucose 55 L POC Glucose 65 L Lactic Acid Calcium Magnesium AST ALT Lactate Dehydrogenase Total Creatine Kinase C-Reactive Protein Total Protein Albumin Urine WBC (Auto) Urine Total Protein Digoxin Salicylates Acetaminophen 01/06/20 01/06/20 01/06/20 05:01 14:10 17:49 WBC RBC Hgb Hct MCV MCH MCHC RDW Plt Count Lymph % (Auto) [place] % (Auto) Eos % (Auto) Baso % (Auto) Lymph # [place] # Eos # Baso # Seg Neutrophils % Monocytes % (Manual) Monocytes # (Manual) D-Dimer ABG pH ABG pO2 ABG HCO3 ABG O2 Saturation ABG Base Excess ABG Hemoglobin Oxyhemoglobin Sodium Potassium Chloride Carbon Dioxide BUN Creatinine Glucose POC Glucose 60 L 119 H 131 H Lactic Acid Calcium Magnesium AST ALT Lactate Dehydrogenase Total Creatine Kinase C-Reactive Protein Total Protein Albumin Urine WBC (Auto) Urine Total Protein Digoxin Salicylates Acetaminophen 01/06/20 01/07/20 01/07/20 21:08 02:11 05:19 WBC RBC Hgb Hct MCV MCH MCHC RDW Plt Count Lymph % (Auto) [place] % (Auto) Eos % (Auto) Baso % (Auto) Lymph # [place] # Eos # Baso # Seg Neutrophils % Monocytes % (Manual) Monocytes # (Manual) D-Dimer ABG pH ABG pO2 ABG HCO3 ABG O2 Saturation ABG Base Excess ABG Hemoglobin Oxyhemoglobin Sodium Potassium Chloride Carbon Dioxide BUN Creatinine Glucose POC Glucose 136 H 209 H 182 H Lactic Acid Calcium Magnesium AST ALT Lactate Dehydrogenase Total Creatine Kinase C-Reactive Protein Total Protein Albumin Urine WBC (Auto) Urine Total Protein Digoxin Salicylates Acetaminophen 01/07/20 01/07/20 01/07/20 11:40 11:52 13:49 WBC RBC Hgb Hct MCV MCH MCHC RDW Plt Count Lymph % (Auto) [place] % (Auto) Eos % (Auto) Baso % (Auto) Lymph # [place] # Eos # Baso # Seg Neutrophils % Monocytes % (Manual) Monocytes # (Manual) D-Dimer ABG pH ABG pO2 ABG HCO3 ABG O2 Saturation ABG Base Excess ABG Hemoglobin Oxyhemoglobin Sodium Potassium Chloride Carbon Dioxide BUN 21 H Creatinine Glucose 190 H POC Glucose 180 H 184 H Lactic Acid Calcium Magnesium AST ALT Lactate Dehydrogenase Total Creatine Kinase C-Reactive Protein Total Protein Albumin Urine WBC (Auto) Urine Total Protein Digoxin Salicylates Acetaminophen 01/07/20 01/07/20 01/07/20 17:54 22:19 Unknown WBC RBC Hgb Hct MCV MCH MCHC RDW Plt Count Lymph % (Auto) [place] % (Auto) Eos % (Auto) Baso % (Auto) Lymph # [place] # Eos # Baso # Seg Neutrophils % Monocytes % (Manual) Monocytes # (Manual) D-Dimer ABG pH ABG pO2 ABG HCO3 28.9 H ABG O2 Saturation ABG Base Excess 4.0 H ABG Hemoglobin 11.0 L Oxyhemoglobin 94.2 L Sodium Potassium Chloride Carbon Dioxide BUN Creatinine Glucose POC Glucose 190 H 299 H Lactic Acid Calcium Magnesium AST ALT Lactate Dehydrogenase Total Creatine Kinase C-Reactive Protein Total Protein Albumin Urine WBC (Auto) Urine Total Protein Digoxin Salicylates Acetaminophen 01/08/20 01/08/20 01/08/20 02:45 05:26 05:27 WBC RBC Hgb Hct MCV MCH MCHC RDW Plt Count Lymph % (Auto) [place] % (Auto) Eos % (Auto) Baso % (Auto) Lymph # [place] # Eos # Baso # Seg Neutrophils % Monocytes % (Manual) Monocytes # (Manual) D-Dimer ABG pH ABG pO2 67.8 L ABG HCO3 26.5 H ABG O2 Saturation 93.2 L ABG Base Excess ABG Hemoglobin 8.1 L Oxyhemoglobin 90.4 L Sodium Potassium Chloride Carbon Dioxide BUN Creatinine Glucose POC Glucose 245 H 346 H Lactic Acid Calcium Magnesium AST ALT Lactate Dehydrogenase Total Creatine Kinase C-Reactive Protein Total Protein Albumin Urine WBC (Auto) Urine Total Protein Digoxin Salicylates Acetaminophen 01/08/20 01/08/20 01/08/20 08:03 08:03 10:33 WBC RBC 3.14 L Hgb 7.6 L Hct 24.3 L MCV 77 L MCH 24 L MCHC 31 L RDW 18.3 H Plt Count 509 H Lymph % (Auto) [place] % (Auto) Eos % (Auto) Baso % (Auto) Lymph # [place] # Eos # Baso # Seg Neutrophils % Monocytes % (Manual) Monocytes # (Manual) D-Dimer ABG pH ABG pO2 ABG HCO3 ABG O2 Saturation ABG Base Excess ABG Hemoglobin Oxyhemoglobin Sodium 132 L D Potassium Chloride 94.7 L Carbon Dioxide BUN 22 H Creatinine Glucose 284 H POC Glucose 275 H Lactic Acid Calcium Magnesium AST ALT Lactate Dehydrogenase Total Creatine Kinase C-Reactive Protein Total Protein Albumin Urine WBC (Auto) Urine Total Protein Digoxin Salicylates Acetaminophen 01/08/20 01/08/20 01/08/20 13:34 17:24 21:49 WBC RBC Hgb Hct MCV MCH MCHC RDW Plt Count Lymph % (Auto) [place] % (Auto) Eos % (Auto) Baso % (Auto) Lymph # [place] # Eos # Baso # Seg Neutrophils % Monocytes % (Manual) Monocytes # (Manual) D-Dimer ABG pH ABG pO2 ABG HCO3 ABG O2 Saturation ABG Base Excess ABG Hemoglobin Oxyhemoglobin Sodium Potassium Chloride Carbon Dioxide BUN Creatinine Glucose POC Glucose 273 H 294 H 265 H Lactic Acid Calcium Magnesium AST ALT Lactate Dehydrogenase Total Creatine Kinase C-Reactive Protein Total Protein Albumin Urine WBC (Auto) Urine Total Protein Digoxin Salicylates Acetaminophen 01/09/20 01/09/20 01/09/20 00:13 03:45 05:55 WBC RBC Hgb Hct MCV MCH MCHC RDW Plt Count Lymph % (Auto) [place] % (Auto) Eos % (Auto) Baso % (Auto) Lymph # [place] # Eos # Baso # Seg Neutrophils % Monocytes % (Manual) Monocytes # (Manual) D-Dimer ABG pH ABG pO2 ABG HCO3 ABG O2 Saturation ABG Base Excess ABG Hemoglobin Oxyhemoglobin Sodium Potassium Chloride Carbon Dioxide BUN Creatinine Glucose POC Glucose 251 H 346 H 300 H Lactic Acid Calcium Magnesium AST ALT Lactate Dehydrogenase Total Creatine Kinase C-Reactive Protein Total Protein Albumin Urine WBC (Auto) Urine Total Protein Digoxin Salicylates Acetaminophen 01/09/20 01/09/20 01/09/20 08:15 09:31 12:04 WBC RBC Hgb Hct MCV MCH MCHC RDW Plt Count Lymph % (Auto) [place] % (Auto) Eos % (Auto) Baso % (Auto) Lymph # [place] # Eos # Baso # Seg Neutrophils % Monocytes % (Manual) Monocytes # (Manual) D-Dimer ABG pH ABG pO2 ABG HCO3 ABG O2 Saturation ABG Base Excess ABG Hemoglobin Oxyhemoglobin Sodium 134 L Potassium Chloride 97.6 L Carbon Dioxide BUN 25 H Creatinine Glucose 240 H POC Glucose 191 H 230 H Lactic Acid Calcium Magnesium AST ALT Lactate Dehydrogenase Total Creatine Kinase C-Reactive Protein Total Protein Albumin Urine WBC (Auto) Urine Total Protein Digoxin Salicylates Acetaminophen 01/09/20 01/09/20 01/09/20 13:46 17:31 22:28 WBC RBC Hgb Hct MCV MCH MCHC RDW Plt Count Lymph % (Auto) [place] % (Auto) Eos % (Auto) Baso % (Auto) Lymph # [place] # Eos # Baso # Seg Neutrophils % Monocytes % (Manual) Monocytes # (Manual) D-Dimer ABG pH ABG pO2 ABG HCO3 ABG O2 Saturation ABG Base Excess ABG Hemoglobin Oxyhemoglobin Sodium Potassium Chloride Carbon Dioxide BUN Creatinine Glucose POC Glucose 211 H 260 H 223 H Lactic Acid Calcium Magnesium AST ALT Lactate Dehydrogenase Total Creatine Kinase C-Reactive Protein Total Protein Albumin Urine WBC (Auto) Urine Total Protein Digoxin Salicylates Acetaminophen 01/10/20 01/10/20 01/10/20 02:16 04:20 05:55 WBC RBC Hgb Hct MCV MCH MCHC RDW Plt Count Lymph % (Auto) [place] % (Auto) Eos % (Auto) Baso % (Auto) Lymph # [place] # Eos # Baso # Seg Neutrophils % Monocytes % (Manual) Monocytes # (Manual) D-Dimer ABG pH ABG pO2 95.3 H ABG HCO3 27.8 H ABG O2 Saturation ABG Base Excess ABG Hemoglobin 8.3 L Oxyhemoglobin Sodium Potassium Chloride Carbon Dioxide BUN Creatinine Glucose POC Glucose 219 H 245 H Lactic Acid Calcium Magnesium AST ALT Lactate Dehydrogenase Total Creatine Kinase C-Reactive Protein Total Protein Albumin Urine WBC (Auto) Urine Total Protein Digoxin Salicylates Acetaminophen 01/10/20 01/10/20 01/10/20 10:38 15:08 15:45 WBC RBC Hgb Hct MCV MCH MCHC RDW Plt Count Lymph % (Auto) [place] % (Auto) Eos % (Auto) Baso % (Auto) Lymph # [place] # Eos # Baso # Seg Neutrophils % Monocytes % (Manual) Monocytes # (Manual) D-Dimer ABG pH ABG pO2 ABG HCO3 ABG O2 Saturation ABG Base Excess ABG Hemoglobin Oxyhemoglobin Sodium Potassium Chloride Carbon Dioxide BUN Creatinine Glucose POC Glucose 268 H 246 H 238 H Lactic Acid Calcium Magnesium AST ALT Lactate Dehydrogenase Total Creatine Kinase C-Reactive Protein Total Protein Albumin Urine WBC (Auto) Urine Total Protein Digoxin Salicylates Acetaminophen 01/10/20 01/10/20 01/10/20 18:00 21:09 22:48 WBC RBC Hgb Hct MCV MCH MCHC RDW Plt Count Lymph % (Auto) [place] % (Auto) Eos % (Auto) Baso % (Auto) Lymph # [place] # Eos # Baso # Seg Neutrophils % Monocytes % (Manual) Monocytes # (Manual) D-Dimer ABG pH ABG pO2 ABG HCO3 ABG O2 Saturation ABG Base Excess ABG Hemoglobin Oxyhemoglobin Sodium Potassium Chloride Carbon Dioxide BUN Creatinine Glucose POC Glucose 187 H 176 H 189 H Lactic Acid Calcium Magnesium AST ALT Lactate Dehydrogenase Total Creatine Kinase C-Reactive Protein Total Protein Albumin Urine WBC (Auto) Urine Total Protein Digoxin Salicylates Acetaminophen 01/11/20 01/11/20 01/11/20 03:07 05:45 05:45 WBC RBC 3.15 L Hgb 7.7 L Hct 24.9 L MCV 79 L MCH 24 L MCHC 31 L RDW 18.7 H Plt Count 667 H Lymph % (Auto) [place] % (Auto) Eos % (Auto) Baso % (Auto) Lymph # [place] # Eos # Baso # Seg Neutrophils % Monocytes % (Manual) Monocytes # (Manual) D-Dimer ABG pH ABG pO2 ABG HCO3 ABG O2 Saturation ABG Base Excess ABG Hemoglobin Oxyhemoglobin Sodium 148 H D Potassium 5.1 H Chloride 111.9 H Carbon Dioxide BUN 26 H Creatinine Glucose 236 H POC Glucose 253 H Lactic Acid Calcium Magnesium AST 67 H ALT Lactate Dehydrogenase Total Creatine Kinase C-Reactive Protein Total Protein 5.9 L Albumin 2.8 L Urine WBC (Auto) Urine Total Protein Digoxin Salicylates Acetaminophen 01/11/20 01/11/20 01/11/20 06:10 12:59 14:22 WBC RBC Hgb Hct MCV MCH MCHC RDW Plt Count Lymph % (Auto) [place] % (Auto) Eos % (Auto) Baso % (Auto) Lymph # [place] # Eos # Baso # Seg Neutrophils % Monocytes % (Manual) Monocytes # (Manual) D-Dimer ABG pH ABG pO2 ABG HCO3 ABG O2 Saturation ABG Base Excess ABG Hemoglobin Oxyhemoglobin Sodium Potassium Chloride Carbon Dioxide BUN Creatinine Glucose POC Glucose 261 H 234 H 220 H Lactic Acid Calcium Magnesium AST ALT Lactate Dehydrogenase Total Creatine Kinase C-Reactive Protein Total Protein Albumin Urine WBC (Auto) Urine Total Protein Digoxin Salicylates Acetaminophen 01/11/20 01/11/20 01/12/20 17:18 21:20 00:45 WBC RBC Hgb Hct MCV MCH MCHC RDW Plt Count Lymph % (Auto) [place] % (Auto) Eos % (Auto) Baso % (Auto) Lymph # [place] # Eos # Baso # Seg Neutrophils % Monocytes % (Manual) Monocytes # (Manual) D-Dimer ABG pH ABG pO2 ABG HCO3 ABG O2 Saturation ABG Base Excess ABG Hemoglobin Oxyhemoglobin Sodium Potassium Chloride Carbon Dioxide BUN Creatinine Glucose POC Glucose 264 H 299 H 289 H Lactic Acid Calcium Magnesium AST ALT Lactate Dehydrogenase Total Creatine Kinase C-Reactive Protein Total Protein Albumin Urine WBC (Auto) Urine Total Protein Digoxin Salicylates Acetaminophen 01/12/20 01/12/20 01/12/20 04:35 06:10 11:29 WBC RBC Hgb Hct MCV MCH MCHC RDW Plt Count Lymph % (Auto) [place] % (Auto) Eos % (Auto) Baso % (Auto) Lymph # [place] # Eos # Baso # Seg Neutrophils % Monocytes % (Manual) Monocytes # (Manual) D-Dimer ABG pH ABG pO2 ABG HCO3 ABG O2 Saturation ABG Base Excess ABG Hemoglobin Oxyhemoglobin Sodium Potassium Chloride Carbon Dioxide BUN Creatinine Glucose POC Glucose 187 H 194 H 213 H Lactic Acid Calcium Magnesium AST ALT Lactate Dehydrogenase Total Creatine Kinase C-Reactive Protein Total Protein Albumin Urine WBC (Auto) Urine Total Protein Digoxin Salicylates Acetaminophen 01/12/20 01/12/20 01/12/20 14:40 18:50 21:34 WBC RBC Hgb Hct MCV MCH MCHC RDW Plt Count Lymph % (Auto) [place] % (Auto) Eos % (Auto) Baso % (Auto) Lymph # [place] # Eos # Baso # Seg Neutrophils % Monocytes % (Manual) Monocytes # (Manual) D-Dimer ABG pH ABG pO2 ABG HCO3 ABG O2 Saturation ABG Base Excess ABG Hemoglobin Oxyhemoglobin Sodium Potassium Chloride Carbon Dioxide BUN Creatinine Glucose POC Glucose 288 H 292 H 147 H Lactic Acid Calcium Magnesium AST ALT Lactate Dehydrogenase Total Creatine Kinase C-Reactive Protein Total Protein Albumin Urine WBC (Auto) Urine Total Protein Digoxin Salicylates Acetaminophen 01/12/20 01/13/20 01/13/20 23:16 04:00 05:27 WBC RBC Hgb Hct MCV MCH MCHC RDW Plt Count Lymph % (Auto) [place] % (Auto) Eos % (Auto) Baso % (Auto) Lymph # [place] # Eos # Baso # Seg Neutrophils % Monocytes % (Manual) Monocytes # (Manual) D-Dimer ABG pH ABG pO2 ABG HCO3 ABG O2 Saturation ABG Base Excess ABG Hemoglobin Oxyhemoglobin Sodium 149 H Potassium Chloride 112.4 H Carbon Dioxide 32 H BUN 28 H Creatinine Glucose 174 H POC Glucose 122 H 143 H Lactic Acid Calcium Magnesium AST ALT Lactate Dehydrogenase Total Creatine Kinase C-Reactive Protein Total Protein Albumin Urine WBC (Auto) Urine Total Protein Digoxin Salicylates Acetaminophen 01/13/20 01/13/20 10:24 Unknown WBC RBC 3.39 L Hgb 8.1 L Hct 28.4 L MCV MCH 24 L MCHC 29 L RDW 19.9 H Plt Count 713 H Lymph % (Auto) [place] % (Auto) 12.7 H Eos % (Auto) Baso % (Auto) 1.9 H Lymph # [place] # 1.3 H Eos # Baso # 0.2 H Seg Neutrophils % Monocytes % (Manual) Monocytes # (Manual) D-Dimer ABG pH ABG pO2 ABG HCO3 ABG O2 Saturation ABG Base Excess ABG Hemoglobin Oxyhemoglobin Sodium Potassium Chloride Carbon Dioxide BUN Creatinine Glucose POC Glucose 172 H Lactic Acid Calcium Magnesium AST ALT Lactate Dehydrogenase Total Creatine Kinase C-Reactive Protein Total Protein Albumin Urine WBC (Auto) Urine Total Protein Digoxin Salicylates Acetaminophen Allied health notes reviewed: nursing
--- NOTE | 2020-01-13 15:36 | XRay Report ---
CHEST 1 VIEW, 01/13/2020 3:03 PM CLINICAL INFORMATION/INDICATION: Respiratory failure COMPARISON: Chest radiograph, 01/10/2020 at 2:38 AM FINDINGS: SUPPORT DEVICES: Right-sided PICC, endotracheal tube and esophagogastric tube project in similar posi tion. HEART: There is stable enlargement of the cardiac silhouette. LUNGS/PLEURA: Bibasilar pleuroparenchymal disease has slightly worsened since the previous study. How ever, the upper lung zones appear better aerated. There is a background of mild interstitial edema. N o pneumothorax is visualized. ADDITIONAL FINDINGS: No additional acute findings. IMPRESSION: 1. Slight interval worsening of bibasilar pleuroparenchymal disease. 2. Mild interstitial edema. Signer Name: Estrellita Reich MD Signed: 01/13/2020 3:31 PM Workstation Name: [id number]
[2020-01-13 15:45] LABS: ABG Base Excess 4.2 mmol/L (-2.0-3.0); ABG HCO3 33.1 mmol/L (20.0-26.0); ABG Methemoglobin 0.7 % (0.0-1.5); ABG Oxygen Saturation 94.7 % (95.0-99.0); ABG PCO2 82.3 mm Hg; ABG PH 7.223 pH Units (7.350-7.450); ABG PO2 81.4 mm Hg (80.0-90.0)
--- NOTE | 2020-01-13 16:20 | Event Note ---
Date: 01/13/20 Notified by FREEMAN Rodriguez that the patient's family is agreeable to proceed with tracheostomy and PEG tube placement. The procedure is scheduled for 01/18/2020 at 11 AM. The procedure will be performed in the operating room. I spoke with the patient's Sister Johanne Hansen at [phone] to give her this information. I will call back on Friday for consent.
[2020-01-13] MEDS: POLYETHYLENE GLYCOL 3350 17 GM POWDER PO SCH (22:23)
[2020-01-14] MEDS: INSULIN LISPRO 100 UNIT/ML SUB-Q SCH ×6 (02:15→22:25)
[2020-01-14] MEDS: fentaNYL DRIP Premix 2,000 MCG/100 ML BAG IV SCH ×3 (02:50→18:02)
[2020-01-14] MEDS: LEVOTHYROXINE 88 MCG TAB PO SCH (05:49)
[2020-01-14] MEDS: IPRATROPIUM/ALBUTEROL SULFATE 3 ML AMPUL.NEB IH SCH ×3 (08:55→20:08)
[2020-01-14] MEDS: HEPARIN 5,000 UNIT/1 ML VIAL SUB-Q SCH ×2 (10:00→21:41)
[2020-01-14] MEDS: ASPIRIN 81 MG TAB CHEW PO SCH (10:00)
[2020-01-14] MEDS: FOLIC ACID 1 MG TAB PO SCH (10:00)
[2020-01-14] MEDS: FAMOTIDINE 20 MG TAB PO SCH ×2 (10:00→21:41)
[2020-01-14] MEDS: INSULIN GLARGINE 100 UNITS/ML SUB-Q SCH ×2 (10:00→21:50)
--- NOTE | 2020-01-14 11:02 | Progress Note ---
Assessment and Plan Sinus bradycardia is uncertain echo: LVEF 45-50% TSH 2.3 A persistently elevated vagal tone or vasodepressor reaction is a possible etiology, versus underlying conduction system disease. Pneumonia negative COVID PCR x 2 Acute Respiratory failure Acute kidney injury -resolved Positive MRSA-sputum Anemia Avoid AV estella blocking agents. Continue telemetry monitoring. Atropine to be used as needed for heart rate below 40. Subjective Date of service: 01/14/20 Principal diagnosis: Ac. Hypoxemic Resp Failure; Septic Shock; Amgdiel. PNA; PUI COVID-19; CHF; JOE Interval history: Patient is awake but remains intubated and on low dose dopamine. Sinus rhythm on telemetry. Objective Vital Signs Temp Pulse Pulse Pulse Resp Resp BP 01/14/20 10:03 57 L 95/75 01/14/20 09:31 59 L 16 137/117 01/14/20 09:28 68 15 01/14/20 09:15 62 15 78/57 01/14/20 09:01 55 L 19 78/57 01/14/20 08:46 55 L 19 134/66 01/14/20 08:45 59 L 14 134/66 01/14/20 08:31 82 16 114/57 01/14/20 08:15 61 14 124/50 01/14/20 08:00 97.6 F 45 L 58 L 14 118/57 01/14/20 07:45 61 14 116/52 01/14/20 07:30 56 L 14 131/57 01/14/20 07:15 64 14 107/48 01/14/20 07:00 61 14 116/56 01/14/20 06:45 58 L 14 119/53 01/14/20 06:30 57 L 14 132/62 01/14/20 06:15 56 L 14 131/59 01/14/20 06:00 59 L 14 138/51 01/14/20 05:45 55 L 14 132/63 01/14/20 05:30 55 L 14 129/59 01/14/20 05:15 47 L 17 127/64 01/14/20 05:01 56 L 14 128/54 01/14/20 04:45 55 L 14 100/61 01/14/20 04:30 52 L 14 112/58 01/14/20 04:16 64 121/55 01/14/20 04:15 56 L 14 121/55 01/14/20 04:01 57 L 14 150/48 01/14/20 04:00 97.6 F 58 L 58 L 14 01/14/20 03:45 53 L 15 125/55 01/14/20 03:30 56 L 14 125/55 01/14/20 03:15 56 L 14 115/53 01/14/20 03:00 56 L 14 114/57 01/14/20 02:45 55 L 14 113/56 01/14/20 02:31 80 20 107/54 01/14/20 02:15 56 L 14 111/51 01/14/20 02:00 54 L 14 131/50 01/14/20 01:45 64 14 114/60 01/14/20 01:30 59 L 14 112/53 01/14/20 01:15 61 14 113/53 01/14/20 01:00 58 L 14 108/52 01/14/20 00:45 58 L 14 105/55 01/14/20 00:44 61 14 01/14/20 00:30 60 14 113/55 01/14/20 00:15 59 L 13 116/53 01/14/20 00:03 56 L 117/59 01/14/20 00:00 97.9 F 63 14 117/59 01/13/20 23:45 62 14 117/56 01/13/20 23:30 64 14 127/56 01/13/20 23:15 60 14 132/57 01/13/20 23:00 61 14 124/62 01/13/20 22:45 58 L 14 128/55 01/13/20 22:39 59 L 15 139/58 01/13/20 22:30 59 L 14 139/58 01/13/20 22:15 60 14 131/65 01/13/20 22:00 62 14 126/61 01/13/20 21:45 60 14 127/55 01/13/20 21:30 61 15 135/63 01/13/20 21:15 55 L 14 134/60 01/13/20 21:00 58 L 74 15 129/59 01/13/20 20:45 54 L 14 119/60 01/13/20 20:30 58 L 14 112/53 01/13/20 20:19 75 14 01/13/20 20:15 59 L 14 110/51 01/13/20 20:00 97.7 F 59 L 14 105/48 01/13/20 19:45 61 14 108/53 01/13/20 19:30 64 14 110/60 01/13/20 19:15 59 L 15 108/53 01/13/20 19:00 61 14 112/52 01/13/20 18:45 64 15 115/54 01/13/20 18:30 66 15 123/54 01/13/20 18:15 67 16 120/56 01/13/20 18:00 67 16 118/59 01/13/20 17:46 68 16 113/53 01/13/20 17:30 63 14 113/53 01/13/20 17:15 61 15 115/54 01/13/20 17:00 61 16 118/55 01/13/20 16:45 58 L 15 118/55 01/13/20 16:30 59 L 14 104/47 01/13/20 16:15 54 L 15 106/46 01/13/20 16:00 98.1 F 51 L 60 23 104/47 01/13/20 15:45 55 L 22 95/43 01/13/20 15:42 53 L 23 102/44 01/13/20 15:30 55 L 22 102/44 01/13/20 15:15 58 L 24 104/45 01/13/20 15:00 67 24 124/81 01/13/20 14:45 48 L 22 117/51 01/13/20 14:40 47 L 22 01/13/20 14:30 54 L 21 107/50 01/13/20 14:15 55 L 19 100/51 01/13/20 14:00 55 L 24 98/49 01/13/20 13:45 54 L 23 94/48 01/13/20 13:30 57 L 21 95/46 01/13/20 13:15 52 L 22 98/43 01/13/20 13:00 48 L 19 94/47 01/13/20 12:45 54 L 22 91/46 01/13/20 12:30 50 L 17 106/50 01/13/20 12:21 54 L 22 96/46 01/13/20 12:15 53 L 22 93/46 01/13/20 12:00 98.2 F 53 L 58 L 19 90/44 01/13/20 11:45 52 L 21 92/45 01/13/20 11:30 56 L 20 105/59 01/13/20 11:16 49 L 19 105/59 Pulse Ox 01/14/20 10:03 95 01/14/20 09:31 94 01/14/20 09:28 01/14/20 09:15 93 01/14/20 09:01 92 01/14/20 08:46 100 01/14/20 08:45 94 01/14/20 08:31 91 01/14/20 08:15 96 01/14/20 08:00 97 01/14/20 07:45 98 01/14/20 07:30 95 01/14/20 07:15 97 01/14/20 07:00 97 01/14/20 06:45 96 01/14/20 06:30 96 01/14/20 06:15 95 01/14/20 06:00 95 01/14/20 05:45 94 01/14/20 05:30 94 01/14/20 05:15 92 01/14/20 05:01 94 01/14/20 04:45 95 01/14/20 04:30 94 01/14/20 04:16 92 01/14/20 04:15 97 01/14/20 04:01 97 01/14/20 04:00 100 01/14/20 03:45 97 01/14/20 03:30 98 01/14/20 03:15 97 01/14/20 03:00 97 01/14/20 02:45 96 01/14/20 02:31 96 01/14/20 02:15 96 01/14/20 02:00 94 01/14/20 01:45 97 01/14/20 01:30 96 01/14/20 01:15 96 01/14/20 01:00 97 01/14/20 00:45 97 01/14/20 00:44 100 01/14/20 00:30 97 01/14/20 00:15 97 01/14/20 00:03 98 01/14/20 00:00 98 01/13/20 23:45 98 01/13/20 23:30 98 01/13/20 23:15 98 01/13/20 23:00 99 01/13/20 22:45 99 01/13/20 22:39 99 01/13/20 22:30 98 01/13/20 22:15 99 01/13/20 22:00 98 01/13/20 21:45 98 01/13/20 21:30 98 01/13/20 21:15 97 01/13/20 21:00 98 01/13/20 20:45 97 01/13/20 20:30 97 01/13/20 20:19 01/13/20 20:15 99 01/13/20 20:00 99 01/13/20 19:45 98 01/13/20 19:30 98 01/13/20 19:15 97 01/13/20 19:00 97 01/13/20 18:45 98 01/13/20 18:30 98 01/13/20 18:15 97 01/13/20 18:00 98 01/13/20 17:46 99 01/13/20 17:30 98 01/13/20 17:15 97 01/13/20 17:00 97 01/13/20 16:45 97 01/13/20 16:30 95 01/13/20 16:15 100 01/13/20 16:00 98 01/13/20 15:45 99 01/13/20 15:42 99 01/13/20 15:30 99 01/13/20 15:15 98 01/13/20 15:00 95 01/13/20 14:45 95 01/13/20 14:40 01/13/20 14:30 97 01/13/20 14:15 98 01/13/20 14:00 98 01/13/20 13:45 99 01/13/20 13:30 99 01/13/20 13:15 99 01/13/20 13:00 98 01/13/20 12:45 98 01/13/20 12:30 96 01/13/20 12:21 97 01/13/20 12:15 96 01/13/20 12:00 100 01/13/20 11:45 94 01/13/20 11:30 96 01/13/20 11:16 94 - Physical Examination General: Other (intubated on the vent) HEENT: Positive: PERRL Cardiac: Positive: Reg Rate and Rhythm - Allied health notes Allied health notes reviewed: nursing
--- NOTE | 2020-01-14 11:47 | Progress Note ---
Assessment and Plan Assessment and plan: /Septic Shock /Sinus bradycardia /HypERnatremia / Acute hypoxic respiratory failure Likely from bilateral pneumonia and diastolic heart failure Patient intubated, placed on ventilatory support. critical care team consulted in ED. Patient is extubated, continue nebulizer breathing treatment and as needed biPAP We will also do a swallow eval / Sepsis with shock cont IV antibiotic therapy, IV fluid resuscitation therapy, monitor urine output every shift, maintain mean arterial blood pressure greater than or equal to 65, s/p IV pressor support. / Suspected 2019-nCoV infection -ruled out with 2 negative test / Diastolic CHF Preserved EF based on prior echocardiogram Monitor weight strict I's/O, daily weight, monitor urine output every shift, submental oxygen, blood pressure control. /JAGDEEP, due to vasomotor nephropathy, present on admission -Creatinine improving, -Likely due to severe sepsis and hypotension /hypernatremia, -due to dehydration and sepsis -change fluid to D5W - monitor BMP /Hypokalemia, replete / Diabetes type II Initiate tube feeding diet Sliding scale insulin, Accu-Chek, hypoglycemia protocol. / Hypothyroidism Synthroid therapy, supportive care. / Bilateral pneumonia Pneumonia protocol: IV antibiotic therapy with rocephin for total 7 days, pulse oximetry, /Cervical lymphadenopathy -Reactive versus infectious process versus malignancy -Need repeat scanning and further staging when medically more stable -Pulmonology and ID following /Ileus: Hold tube feeds / HTN (hypertension) -hold BP meds as patient is hypotensive Monitor blood pressure every shift, continue medical management. /History of obstructive sleep apnea -Patient currently on mechanical ventilation /Acute metabolic encephalopathy Secondary to hyponatremia. /Urinary retention, suspected in the ER -Patient having good urine output now, will hold any CT scan -Continue IV fluid / DVT prophylaxis SCD to bilateral lower extremities while in bed, prophylactic heparin 12/19/19: Negative for COVID-19, continue pressor and wean off as tolerated, continue IV antibiotic and follow cultures. 12/19: Weaned off from pressor, sodium 156>157>153 today, creatinine 1.4>1.2>1.0. Continue IV fluid. Wean off from vent as tolerated. Follow ID recommendation 12/20: Extubated today, continue to monitor in the ICU overnight if clinically stable with transfer out to [facility]/telemetry tomorrow a.m.. Sodium 149 today, continue IV fluid and monitor BMP. Swallow eval, PT OT eval. 2nd text for covid is negative 12/21: transfer to [facility], start on gentle hydration. mechanical soft diet 12/22: placed back on bipap, Na 163 - start on D5W, monitor bmp 12/23: spoke to sister, updated [id number], also discussed Pulmonary, will likely need LTAC. Obtain Nephrology due to persistent Hypernatremia. Will start on free water and continue to monitor. Remains of restriants for safety due to intermittent confusion. 12/24: Still with intermittent encephalopathy. Requiring restraints. Hyperna tremia still persist continue hypotonic solution. Nephrology consulted. Free water started this morning will increase dose. Replace potassium as hypokalemia still persist 12/26/19: Clinically improving, BIPAP now PRN AND HS, Na improving, continue renal follow up. I have called [facility] in case they would like to transfer the patient tested previously requested. 12/26: Hypernatermia still persist, had pulled out NGT yesterday, Continue free water, Continue Bipap, Mcdermott states he is not yet stable for transfer. Although from our critical care team this patient has been cleared for to be able to transfer. 12/27: Patient reintubated due to hypoxia. Continue current management as outlined by log carrier operator. Sodium is improving. Continue current management monitor ABG and intermittent chest x-ray. Mcdermott group updated. Patient sister also updated. 12/28: Sepsis persist. Antibiotics adjusted.-start linezolid 600 mg IV q 12 hour. Will adjust insulin for better management of blood glucose. 12/29: Shock still persist Levophed adjusted upward. Fowler advised patient not safe for travel at this time. Continue ventilatory support continue full support antibiotics adjusted by ID. Follow cultures 12/30: Still on the vent and pressors , Isolation secondary MRSA In sputum. 12/31: Continue current management, will need intermittent chest xray, adjust insulin For better blood glucose control. Check labs in am 01/01: KUB reviewed shows distended bowel with no no specific obstruction noted. We will hold tube feeds at this time place NG tube to low intermittent suction. Repeat chest x-ray in a.m. Hyponatremia is better kidney function appears to be improving continue to monitor. 01/02: Continue feeding tube to low intermittent suction over 500 residual came out in the last 16+ hours. Repeat blood culture per ID. Continue antibiotics. We will obtain the CT abdomen and pelvis without contrast as renal function is mildly increased today. Prognosis is guarded repeat imaging concerning for colon distention. Will defer to critical care if the fecal management system should be placed. 01/03: CT A/P and chest. IMPRESSION: 1. Predominantly dependent bilateral consolidative and groundglass changes throughout both lungs have worsened since the prior. There is a new small left pleural effusion as well. These findings could be seen in the setting of pulmonary edema with associated superimposed infectious process. There is no cardiomegaly. 2. Left cervical/supraclavicular adenopathy appears slightly increased. This is nonspecific. However, there are shoddy nodes throughout the retroperitoneum and within the pelvis, and the spleen is mildly enlarged. Taken together, these findings are concerning for lymphoproliferative process such as lymphoma. - Ultrasound guided Biopsy, also send peripheral smear. US guided biopsy ordered - add a second pressors 01/04: Awaiting biopsy, continue supportive care, Sodium stable and improving. Patient undergoing bronchoscopy today. 01/05: Continue supportive care, monitor sodium level, wean pressors as tolerated, Radiology unable to perform biopsy of Lymphnode while patient is on the vent per Radiology team. Mcdermott updated of clinical status 01/06: Remains on pressors. Continues with nonoliguric kidney injury. We will give a bolus of fluid as patient is still dry. Hypoglycemia is improving will decrease to D5 from D10 at the same rate. Continue to monitor await cultures and cytology from bronchoscopy. Likely will need trach and PEG. 01/07: Discontinue D5. Patient did receive a bolus of fluid yesterday. Bowel movement noted. Monitor blood sugar close, continue to wean pressors, folllow result from bronchoscopy. start considering Trach and PEG 01/08: Noted hypotensive again this morning requiring reinitiation of pressors. Also was bradycardic received atropine. Keep atropine at bedside cardiology evaluated continue pulmonary supportive care while on ventilator. Renal function is improving. Will give additional bolus of fluid. 01/09: Consult placed to surgery for trach and PEG as patient has failed multiple weaning trials.. Still awaiting biopsy for the adenopathy noted. Again radiology would want the patient off the vent prior to doing biopsy. 01/11/2020. Patient still requiring mechanical ventilation with AC mode rate 14, tidal volume 450, FiO2 45% and PEEP of 8. Patient requiring fentanyl for sedation, wean as tolerated. Patient currently on pressors of dopamine and vasopressin. And currently on stress dose hydrocortisone 100 mg IV every 8 hours. Continue atropine at the bedside for emergent treatment of bradycardia. Cardiology to decide on possible device therapies. 01/12/2020. Patient still requiring mechanical ventilation with AC mode rate of 14, tidal volume 450, FiO2 50% and PEEP of 8. Continue to wean pressors to maintain MEP greater than 65. Atropine at the bedside for emergent treatment of bradycardia. Continue stress dose hydrocortisone. 01/13/2020. Patient still requiring mechanical ventilation on PSV mode FiO2 50% PEEP 8 and pressure support 15. Continue CPAP trials as tolerated. Continue to wean pressors to maintain MAP greater than 65. Atropine as needed for bradycardia. Avoid AV estella blocking agents. 01/14/2020. Patient currently on AC mode ventilation with rate of 14, tidal volume 450, FiO2 35% and PEEP of 8. Continue CPAP trials per protocols. Continue dopamine/atropine as needed for bradycardia. Consider pacemaker per cardiology. Continue free water every 4 hours for hypernatremia. Continue to monitor off antibiotics. Surgery to perform tracheostomy and PEG placement. The high probability of a clinically significant, sudden or life threatening deterioration of the [renal, respiratory and cardiac] system(s) required my full and direct attention, intervention and personal management. The aggregate critical care time was [31] minutes. This time is in addition to time spent performing reported procedures but includes the following: [x] Data Review and interpretation [x] Patient assessment and monitoring of vital signs [x] Documentation [x] Medication orders and management History Interval history: No new issues overnight. Hospitalist Physical - Constitutional Vitals: Temp Pulse Resp BP Pulse Ox 97.6 F 73 14 119/55 86 01/14/20 08:00 01/14/20 11:01 01/14/20 10:45 01/14/20 11:01 01/14/20 11:01 General appearance: Present: severe distress - EENT Eyes: Present: PERRL, EOM intact ENT: hearing intact, clear oral mucosa, dentition normal - Neck Neck: Present: supple, normal ROM - Respiratory Respiratory effort: normal Respiratory: bilateral: CTA - Cardiovascular Rhythm: regular Heart Sounds: Present: S1 & S2. Absent: gallop, rub - Extremities Extremities: no ischemia, No edema, Full ROM - Abdominal General gastrointestinal: soft, non-tender, non-distended, normal bowel sounds - Integumentary Integumentary: Present: clear, warm, dry - Neurologic Neurologic: CNII-XII intact, moves all extremities HEART Score - HEART Score Troponin: Troponin T 0.011 ng/mL (0.00-0.029) 12/18/19 14:45 Results - Labs CBC & Chem 7: 01/13/20 Unknown 01/13/20 04:00 Labs: Laboratory Last Values WBC 10.6 K/mm3 (4.5-11.0) 01/13/20 Unknown RBC 3.39 M/mm3 (3.65-5.03) L 01/13/20 Unknown Hgb 8.1 gm/dl (11.8-15.2) L 01/13/20 Unknown Hct 28.4 % (35.5-45.6) L 01/13/20 Unknown MCV 84 fl (84-94) 01/13/20 Unknown MCH 24 pg (28-32) L 01/13/20 Unknown MCHC 29 % (32-34) L 01/13/20 Unknown RDW 19.9 % (13.2-15.2) H 01/13/20 Unknown Plt Count 713 K/mm3 (140-440) H 01/13/20 Unknown Lymph % (Auto) 20.2 % (13.4-35.0) 01/13/20 Unknown Barbour % (Auto) 12.7 % (0.0-7.3) H 01/13/20 Unknown Eos % (Auto) 3.9 % (0.0-4.3) 01/13/20 Unknown Baso % (Auto) 1.9 % (0.0-1.8) H 01/13/20 Unknown Lymph # 2.1 K/mm3 (1.2-5.4) 01/13/20 Unknown Barbour # 1.3 K/mm3 (0.0-0.8) H 01/13/20 Unknown Eos # 0.4 K/mm3 (0.0-0.4) 01/13/20 Unknown Baso # 0.2 K/mm3 (0.0-0.1) H 01/13/20 Unknown Add Manual Diff Complete 12/24/19 04:53 Total Counted 100 12/24/19 04:53 Seg Neutrophils % 61.3 % (40.0-70.0) 01/13/20 Unknown Seg Neuts % (Manual) 60.0 % (40.0-70.0) 12/24/19 04:53 Band Neutrophils % 0 % 12/24/19 04:53 Lymphocytes % (Manual) 20.0 % (13.4-35.0) 12/24/19 04:53 Reactive Lymphs % (Man) 0 % 12/24/19 04:53 Monocytes % (Manual) 15.0 % (0.0-7.3) H 12/24/19 04:53 Eosinophils % (Manual) 4.0 % (0.0-4.3) 12/24/19 04:53 Basophils % (Manual) 0 % (0.0-1.8) 12/24/19 04:53 Metamyelocytes % 1.0 % 12/24/19 04:53 Myelocytes % 0 % 12/24/19 04:53 Promyelocytes % 0 % 12/24/19 04:53 Blast Cells % 0 % 12/24/19 04:53 Nucleated RBC % Not Reportable 12/24/19 04:53 Seg Neutrophils # 6.5 K/mm3 (1.8-7.7) 01/13/20 Unknown Seg Neutrophils # Man 3.5 K/mm3 (1.8-7.7) 12/24/19 04:53 Band Neutrophils # 0.0 K/mm3 12/24/19 04:53 Lymphocytes # (Manual) 1.2 K/mm3 (1.2-5.4) 12/24/19 04:53 Abs React Lymphs (Man) 0.0 K/mm3 12/24/19 04:53 Monocytes # (Manual) 0.9 K/mm3 (0.0-0.8) H 12/24/19 04:53 Eosinophils # (Manual) 0.2 K/mm3 (0.0-0.4) 12/24/19 04:53 Basophils # (Manual) 0.0 K/mm3 (0.0-0.1) 12/24/19 04:53 Metamyelocytes # 0.1 K/mm3 12/24/19 04:53 Myelocytes # 0.0 K/mm3 12/24/19 04:53 Promyelocytes # 0.0 K/mm3 12/24/19 04:53 Blast Cells # 0.0 K/mm3 12/24/19 04:53 WBC Morphology Not Reportable 12/24/19 04:53 Hypersegmented Neuts Not Reportable 12/24/19 04:53 Hyposegmented Neuts Not Reportable 12/24/19 04:53 Hypogranular Neuts Not Reportable 12/24/19 04:53 Smudge Cells Not Reportable 12/24/19 04:53 Toxic Granulation Not Reportable 12/24/19 04:53 Toxic Vacuolation Not Reportable 12/24/19 04:53 Dohle Bodies Not Reportable 12/24/19 04:53 Pelger-Huet Anomaly Not Reportable 12/24/19 04:53 Mervin Rods Not Reportable 12/24/19 04:53 Platelet Estimate Consistent w auto 12/24/19 04:53 Clumped Platelets Not Reportable 12/24/19 04:53 Plt Clumps, EDTA Not Reportable 12/24/19 04:53 Large Platelets Not Reportable 12/24/19 04:53 Giant Platelets Not Reportable 12/24/19 04:53 Platelet Satelliting Not Reportable 12/24/19 04:53 Plt Morphology Comment Not Reportable 12/24/19 04:53 RBC Morphology Not Reportable 12/24/19 04:53 Dimorphic RBCs Not Reportable 12/24/19 04:53 Polychromasia Rare 12/24/19 04:53 Hypochromasia 1+ 12/24/19 04:53 Poikilocytosis Not Reportable 12/24/19 04:53 Anisocytosis 1+ 12/24/19 04:53 Microcytosis Few 12/24/19 04:53 Macrocytosis Not Reportable 12/24/19 04:53 Spherocytes Not Reportable 12/24/19 04:53 Pappenheimer Bodies Not Reportable 12/24/19 04:53 Sickle Cells Not Reportable 12/24/19 04:53 Target Cells Not Reportable 12/24/19 04:53 Tear Drop Cells Not Reportable 12/24/19 04:53 Ovalocytes Few 12/24/19 04:53 Helmet Cells Not Reportable 12/24/19 04:53 Brink-[place] Bodies Not Reportable 12/24/19 04:53 Vinton Rings Not Reportable 12/24/19 04:53 Eveleth Cells Not Reportable 12/24/19 04:53 Bite Cells Not Reportable 12/24/19 04:53 Crenated Cell Not Reportable 12/24/19 04:53 Elliptocytes Not Reportable 12/24/19 04:53 Acanthocytes (Spur) Not Reportable 12/24/19 04:53 Rouleaux Not Reportable 12/24/19 04:53 Hemoglobin C Crystals Not Reportable 12/24/19 04:53 Schistocytes Not Reportable 12/24/19 04:53 Malaria parasites Not Reportable 12/24/19 04:53 Gianni Bodies Not Reportable 12/24/19 04:53 Hem Pathologist Commnt No 12/24/19 04:53 PT 14.0 Sec. (12.2-14.9) 12/18/19 14:45 INR 1.10 (0.87-1.13) 12/18/19 14:45 APTT 29.4 Sec. (24.2-36.6) 12/18/19 14:45 D-Dimer 534.45 ng/mlDDU (0-234) H 12/18/19 14:45 ABG pH 7.223 pH Units (7.350-7.450) L 01/13/20 15:10 ABG pCO2 82.3 mm Hg 01/13/20 15:10 ABG pO2 81.4 mm Hg (80.0-90.0) 01/13/20 15:10 ABG HCO3 33.1 mmol/L (20.0-26.0) H 01/13/20 15:10 ABG O2 Saturation 94.7 % (95.0-99.0) L 01/13/20 15:10 ABG O2 Content 11.2 (0.0-44) 01/13/20 15:10 ABG Base Excess 4.2 mmol/L (-2.0-3.0) H 01/13/20 15:10 ABG Hemoglobin 8.5 gm/dl (14.0-18.0) L 01/13/20 15:10 ABG Carboxyhemoglobin 2.0 % (0.0-5.0) 01/13/20 15:10 ABG Methemoglobin 0.7 % (0.0-1.5) 01/13/20 15:10 Oxyhemoglobin 92.1 % (95.0-99.0) L 01/13/20 15:10 FiO2 50 % 01/13/20 15:10 Sodium 149 mmol/L (137-145) H 01/13/20 04:00 Potassium 4.4 mmol/L (3.6-5.0) 01/13/20 04:00 Chloride 112.4 mmol/L (98-107) H 01/13/20 04:00 Carbon Dioxide 32 mmol/L (22-30) H 01/13/20 04:00 Anion Gap 9 mmol/L 01/13/20 04:00 BUN 28 mg/dL (9-20) H 01/13/20 04:00 Creatinine 0.8 mg/dL (0.8-1.5) 01/13/20 04:00 Estimated GFR > 60 ml/min 01/13/20 04:00 BUN/Creatinine Ratio 35 % 01/13/20 04:00 Glucose 174 mg/dL (75-100) H 01/13/20 04:00 POC Glucose 157 (70-105) H 01/14/20 05:20 Lactic Acid 1.70 mmol/L (0.7-2.0) 12/30/19 05:06 Calcium 8.4 mg/dL (8.4-10.2) 01/13/20 04:00 Phosphorus 3.70 mg/dL (2.5-4.5) 12/27/19 03:48 Magnesium 2.60 mg/dL (1.7-2.3) H 12/30/19 05:06 Ferritin 83.4 ng/mL (13.0-400.0) 12/18/19 14:45 Total Bilirubin 0.20 mg/dL (0.1-1.2) 01/11/20 05:45 AST 67 units/L (5-40) H 01/11/20 05:45 ALT 45 units/L (7-56) 01/11/20 05:45 Alkaline Phosphatase 111 units/L (35-129) 01/11/20 05:45 Ammonia 39.0 umol/L (25-60) 12/18/19 14:45 Lactate Dehydrogenase 235 units/L (91-180) H 12/18/19 14:45 Lactate Dehydrogenase 236 units/L (91-180) H 12/18/19 14:45 Total Creatine Kinase 40 units/L (55-170) L 12/18/19 14:45 Troponin T 0.011 ng/mL (0.00-0.029) 12/18/19 14:45 C-Reactive Protein 8.40 mg/dL (0.00-1.30) H 12/18/19 14:45 C-Reactive Protein 8.50 mg/dL (0.00-1.30) H 12/18/19 14:45 Total Protein 5.9 g/dL (6.3-8.2) L 01/11/20 05:45 Albumin 2.8 g/dL (3.9-5) L 01/11/20 05:45 Albumin/Globulin Ratio 0.9 % 01/11/20 05:45 Procalcitonin 0.22 ng/mL (<0.15) 12/18/19 14:45 TSH 1.460 mlU/mL (0.270-4.200) 01/13/20 20:37 Free T4 0.63 ng/dL (0.76-1.46) L 01/13/20 20:37 Urine Color Yellow (Yellow) 12/19/19 16:50 Urine Turbidity Clear (Clear) 12/19/19 16:50 Urine pH 5.0 (5.0-7.0) 12/19/19 16:50 Ur Specific Lucas 1.010 (1.003-1.030) 12/19/19 16:50 Urine Protein <15 mg/dl mg/dL (Negative) 12/19/19 16:50 Urine Glucose (UA) 150 mg/dL (Negative) 12/19/19 16:50 Urine Ketones Neg mg/dL (Negative) 12/19/19 16:50 Urine Blood Neg (Negative) 12/19/19 16:50 Urine Nitrite Neg (Negative) 12/19/19 16:50 Urine Bilirubin Neg (Negative) 12/19/19 16:50 Urine Urobilinogen < 2.0 mg/dL (<2.0) 12/19/19 16:50 Ur Leukocyte Esterase Tr (Negative) 12/19/19 16:50 Urine WBC (Auto) 7.0 /HPF (0.0-6.0) H 12/19/19 16:50 Urine RBC (Auto) 4.0 /HPF (0.0-6.0) 12/19/19 16:50 U Epithel Cells (Auto) 1.0 /HPF (0-13.0) 12/19/19 16:50 Urine Bacteria (Auto) 1+ /HPF (Negative) 12/19/19 16:50 Urine Mucus Few /HPF 12/19/19 16:50 Urine Osmolality 140 Mosm/kg 12/25/19 16:45 Urine Creatinine < 4.2 mg/dL (0.1-20.0) 12/25/19 16:45 Urine Sodium 10 mmol/L 12/25/19 16:45 Urine Total Protein < 4 mg/dL (5-11.8) L 12/25/19 16:45 Digoxin 0.3 ng/mL (0.9-2.0) L 12/18/19 14:45 Salicylates < 0.3 mg/dL (2.8-20.0) L 12/18/19 14:45 Acetaminophen < 5.0 ug/mL (10.0-30.0) L 12/18/19 14:45 Plasma/Serum Alcohol < 0.01 % (0-0.07) 12/18/19 14:45 Coronavirus (PCR) Negative (Negative) 12/21/19 14:45 AFB Identification 01/05/20 09:05 Fungal Id Prelim 01/05/20 09:05 Blood Type A POSITIVE 12/18/19 14:45 Antibody Screen Negative 12/18/19 14:45 - Diagnostic Impressions Diagnostic Impressions: Echocardiogram 12/28/19 14:07 Transthoracic Echocardiogram Indication: SOB BP: 95/51 HR: 99 Conclusions *The left ventricular chamber size is mildly dilated. *There is no left ventricular hypertrophy. *Global left ventricular systolic function is mildly decreased. *The estimated ejection fraction is 45-50%. *Abnormal left ventricular diastolic filling is observed, consistent with impaired relaxation. *The right ventricular global systolic function is mildly reduced. *The right ventricular systolic pressure is calculated at 53 mmHg. Findings Left Ventricle: The left ventricular chamber size is mildly dilated. There is no left ventricular hypertrophy. Global left ventricular systolic function is mildly decreased. The estimated ejection fraction is 45-50%. Abnormal left ventricular diastolic filling is observed, consistent with impaired relaxation. Left Atrium: The left atrial chamber size is normal. Right Ventricle: The right ventricular cavity size is normal. The right ventricular global systolic function is mildly reduced. Right Atrium: The right atrial cavity size is normal. Aortic Valve: The aortic valve leaflets are mildly thickened. There is no evidence of aortic regurgitation. Mitral Valve: The mitral valve leaflets are mildly thickened. There is no evidence of mitral regurgitation. Tricuspid Valve: The tricuspid valve leaflets are normal. There is mild tricuspid regurgitation. The right ventricular systolic pressure is calculated at 53 mmHg. Pulmonic Valve: The pulmonic valve appears normal. There is trace pulmonic regurgitation. Pericardium: There is no pericardial effusion. Aorta: The aorta appears normal. Venous: The inferior vena cava is dilated. Measurements Chambers 2D Name Value Normal Range IVSd (2D) 1.08 cm (0.6 - 1.1) LVPWd (2D) 1 cm (0.6 - 1.1) LVIDd (2D) 4.67 cm (3.7 - 5.6) LVIDs (2D) 3.89 cm (2 - 3.8) LV FS (2D) 16.76 % - EF Teichholz (2D) 35.14 % - Ao root diameter (2D) 2.86 cm (2 - 3.7) Volumes/Mass Name Value Normal Range LA ESV SP 4CH (A/L) 31.8 ml - LA ESV SP 2CH (A/L) 27.37 ml - LA ESV BP (A/L) 33.43 ml - LA ESV BP (A/L) index 14.11 ml/m2 - LA ESV SP 4CH (MOD) 26.83 ml - LA ESV SP 2CH (MOD) 29.59 ml - LA ESV BP (MOD) 30.47 ml - LA ESV BP (MOD) index 12.86 ml/m2 - Diastolic/Systolic Function Name Value Normal Range MV E-wave Vmax 0.39 m/sec - MV deceleration time 115.69 msec - MV A-wave Vmax 0.63 m/sec - MV E:A ratio 0.62 ratio - Aortic Valve Name Value Normal Range AV Vmax 1.14 m/sec - AV VTI 20.1 cm - AV peak gradient 5.17 mmHg - AV mean gradient 3.89 mmHg - LVOT diameter 2.02 cm - LVOT Vmax 0.99 m/sec - LVOT VTI 16.45 cm - LVOT peak gradient 3.95 mmHg - LVOT mean gradient 2.45 mmHg - SV LVOT 52.45 ml - RALPH (continuity Vmax) 2.78 cm2 - RALPH (continuity VTI) 2.61 cm2 - Tricuspid Valve Name Value Normal Range TR Vmax 3.36 m/sec - TR peak gradient 45 mmHg - RAP 8 mmHg - RVSP 53 mmHg - IVC diameter 2.33 cm (1.2 - 2.3) Pulmonic Valve/Qp:Qs Name Value Normal Range PV Vmax 0.89 m/sec - PV peak gradient 3.16 mmHg - AR end-diastolic Vmax 1.42 m/sec - PV acceleration time 79.92 msec - Sykes/IV: Voiding Method Condom Catheter IV Catheter Type [Right Upper PICC Line arm] IV Catheter Type [Right Leg] Intra-osseous IV Catheter Type [Right Wrist] Peripheral IV IV Catheter Type [Right Hand] INT / Saline Lock IV Catheter Type [Left Hand] INT / Saline Lock IV Catheter Type [Left Forearm INT / Saline Lock ] IV Catheter Type [Left Triple Lumen Cath Internal Jugular] Active Medications - Current Medications Current Medications: Generic Name Dose Route Start Last Admin Trade Name Freq PRN Reason Stop Dose Admin Acetaminophen 650 mg 12/29/19 09:21 01/03/20 18:31 Tylenol PO 650 mg Q4H PRN Administration Non Cardiac Pain or Temp>100.5 Albuterol/Ipratropium 1 ampul 12/18/19 14:00 01/14/20 08:55 Duoneb *Not For Prn Use* IH 1 ampul TIDRT SHANEL Administration Lipase/Protease/Amylase 1 each 12/19/19 08:29 Erendira Cabrera 10,500 Unit FEEDTUBE PRN PRN For Clogged Feeding Tube Aspirin 81 mg 12/19/19 10:00 01/13/20 10:25 Baby Aspirin PO 81 mg DAILY SHANEL Administration Atropine Sulfate 1 mg 01/09/20 13:50 01/10/20 18:00 Atropine 0.1% (Cardiac) IV 1 mg PRN PRN Administration Bradycardia Bisacodyl 10 mg 01/02/20 15:48 01/02/20 18:25 Dulcolax AR 10 mg QDAY PRN Administration Constipation Docusate Sodium 100 mg 01/01/20 22:00 01/13/20 22:21 Colace PO 100 mg BID SHANEL Administration Famotidine 20 mg 12/20/19 10:00 01/13/20 22:21 Pepcid PO 20 mg BID SHANEL Administration Fentanyl 50 mcg 12/27/19 16:57 Sublimaze IV Q10MIN PRN ANALGESIA Folic Acid 1 mg 12/19/19 10:00 01/13/20 10:25 Folvite PO 1 mg DAILY SHANEL Administration Heparin Sodium (Porcine) 5,000 unit 12/18/19 22:00 01/13/20 22:21 Heparin SUB-Q 5,000 unit Q12HR SHANEL Administration Hydrophilic Ointment 1 applic 12/18/19 12:35 Vaseline Lip Therapy TP Q2HR PRN Dry Lips Fentanyl Citrate 2,000 mcg in 100 mls @ 5.85 mls/hr 12/27/19 17:00 01/14/20 09:48 Fentanyl Drip Premix IV 2 mcg/kg/hr TITR SHANEL 11.7 mls/hr Administration Protocol 1 MCG/KG/HR Norepinephrine 4 mg in 250 mls @ 7.5 mls/hr 12/28/19 15:00 01/09/20 09:02 Levophed Drip 4 Mg/Ns 250 Ml IV 0 mcg/min TITR SHANEL 0 mls/hr Titration Protocol 2 MCG/MIN Vasopressin 20 unit/ Sodium 101 mls @ 9.09 mls/hr 12/30/19 12:30 01/01/20 13:44 Chloride IV 0 units/min TITR SHANEL 0 mls/hr Titration Protocol 0.03 UNITS/MIN Dopamine HCl/Dextrose 800 mg in 250 mls @ 4.388 mls/hr 12/31/19 16:00 01/12/20 23:03 Intropin Drip 800 Mg/D5w 250 Ml IV 2 mcg/kg/min TITR SHANEL 4.388 mls/hr Administration Protocol 2 MCG/KG/MIN Insulin Glargine 15 units 01/10/20 14:00 01/13/20 22:21 Lantus SUB-Q 15 units BID SHANEL Administration Insulin Human Lispro 0 unit 12/31/19 14:00 01/14/20 05:48 Humalog SUB-Q 3 unit Q4HR [facility] Administration Protocol Levothyroxine Sodium 88 mcg 12/19/19 06:00 01/14/20 05:49 Synthroid PO 88 mcg QAM@0600 SHANEL Administration Multi-Ingred Cream/Lotion/Oil/Oint 1 applic 12/18/19 12:35 Artificial Tears Ophth Oint OU Q4HR PRN Dry Eye(s) Polyethylene Glycol 17 gm 01/01/20 22:00 01/13/20 22:23 Miralax 3350 PO Not Given QHS SHANEL Simple Syrup 15 ml 12/19/19 08:29 01/06/20 04:58 Simple Syrup FEEDTUBE 15 ml PRN PRN Administration Hypoglycemia Simple Syrup 30 ml 12/19/19 08:29 Simple Syrup FEEDTUBE PRN PRN Hypoglycemia Sodium Bicarbonate 325 mg 12/19/19 08:29 Sodium Bicarbonate FEEDTUBE PRN PRN For Clogged Feeding Tube Sodium Chloride 10 ml 12/18/19 22:00 01/13/20 22:24 Sodium Chloride Flush Syringe 10 Ml IV 10 ml BID SHANEL Administration Sodium Chloride 10 ml 12/18/19 13:31 Sodium Chloride Flush Syringe 10 Ml IV PRN PRN LINE FLUSH Nutrition/Malnutrition Assess - Dietary Evaluation Nutrition/Malnutrition Findings: Nutrition Notes Start: 12/19/19 08:16 Freq: Status: Active Protocol: Document 01/12/20 13:27 LP (Rec: 01/12/20 13:30 LP [id number]) Nutrition Notes Initial or Follow up Reassessment Current Diagnosis Diabetes,Sepsis,Hypertension, Heart Failure,Respiratory Failure Other Pertinent Diagnosis COVID-19 (-), pneu Current Diet Vital AF 1.2 at 65ml/hr Labs/Tests K 5.1 Na 148 Pertinent Medications Reviewed Height 6 ft 2 in Weight 117 kg [place] Body Weight (kg) 86.36 BMI 33.1 Weight Status Obese Subjective/Other Information Pt tolerating TF at goal rate. Pt Na elevated and MD ordered 200ml q4h flushes. Percent of energy/protein needs met: 94%/68% Burn Absent Trauma Absent Current % PO Negligible Minimum of two criteria No physical signs of malnutrition #1 Nutrition Diagnosis Inadequate oral intake Diagnosis Progress(for reassessment Continues documentation) Is patient on ventilator? Yes Is Patient Ambulatory and/or Out of Bed No REE-([facility]-confined to bed) 2469.960 Kcal/Kg value to use for calculation 17 Approximate Energy Requirements Using 1989 kcal/Kg Calculation Used for Recommendations Kcal/kg Additional Notes Protein: 172g (>/=2g/kg using IBW 86kg) Fluid 1ml/kcal Nutrition Intervention Change Diet Order: TF Nutrition Support: Vital AF 1.2 at 65ml/hr Flush 250ml q4h for hypernatremia Flush 100ml q4h Kcal 1,872 Protein (gm) 117 Fluid (mL) 1,265 Goal #1 TF tolerance Goal #2 Meet at least 75% of energy and protein needs Anticipated Discharge Needs: unable to determine at this time Follow-Up By: 01/14/20 Additional Comments Follow for Na level
[2020-01-14] MEDS: DOCUSATE SODIUM 100 MG/10 ML ORAL LIQD PO SCH ×2 (12:54→21:42)
--- NOTE | 2020-01-14 13:04 | Progress Note ---
Assessment and Plan Acute Hypoxemic Respiratory Failure Severe Sepsis with Shock Bilateral Pneumonia Bradycardia JAGDEEP secondary to ATN, non oliguric Hypernatremia Morbid Obesity H/O CHF JOE - Continue with dopamine, monitor bradycardia. If he remains bradycardic with ongoing requirements for dopamine support, may need to be evaluated for need for pacemaker. Cardiology on consult -Get CXR and ABG today - Continue Free water at 250 cc q4 and hypotonic solutions for hypernatremia -Continue to monitor off antibiotics, trend temperature curve and WCC -Discussed with general surgery re tracheostomy and PEG placement- sisters are agreeable -Continue with bowel regimen -Daily SAT and SBT assessment as tolerated - Continue care as below otherwise - accuchecks with glycemic control per SSI (While critically ill target blood glucose of 140-180 mg/dL; avoid hypoglycemia) - sedation for target RASS 0 to -1 - continue to wean supplemental oxygen for target O2 sat's > 92% - continue bronchodilators with pulmonary hygiene per RT - VAP bundle addressed - lung protective strategies - wean per pulmonary driven protocols otherwise - continue to avoid benzodiazepines, reduce the possibility of delirium - prn analgesia per CPOT score - Maintenance of sleep-wake cycle - continue to avoid benzodiazepines, reduce the possibility of delirium - continue enteral nutritional support at goal rate as tolerated - G.I. & VTE prophylaxis - PT/OT/ROM exercises - continue mobility protocols for pressure ulcer prophylaxis - repeat COVID-19 test negative - continue aspiration precautions - continue accuchecks with glycemic control per SSI (While critically ill target blood glucose of 140-180 mg/dL; avoid hypoglycemia) - Monitor hemodynamics closely - continue other care per attending / other consultants .... Re-evaluate in am & prn CONDITION: CRITICAL PROGNOSIS: GUARDED CODE STATUS: FULL CODE The high probability of a clinically significant, sudden or life-threatening deterioration of the [respiratory, cardiovascular, GI & neurologic] system(s) required my full and direct attention, intervention and personal management. The aggregate critical care time was [31] minutes without overlap. Time includes spent on; [x] Data Review and interpretation [x] Patient assessment and monitoring of vital signs [x] Documentation [x] Medication orders and management Subjective Date of service: 01/14/20 Principal diagnosis: Ac. Hypoxemic Resp Failure; Septic Shock; Magdiel. PNA; PUI COVID-19; CHF; JOE Interval history: Patient is seen today for: Acute Hypoxemic Respiratory Failure; Severe Sepsis with Shock; Bilateral Pneumonia; PUI COVID-19; Morbid Obesity; H/O CHF; JOE Seen and examined at bedside; 24hour events reviewed; nursing and respiratory care staff consulted; no adverse overnight events reported to me; resting peacefully in bed; remains on MVS; remains on vasopressor support dopamine at 2 mcg for bradycardia. Has episodes of bradycardia, 2 days ago required IV atropine. Currently on SBT, requiring PSV 15 to generate spontaneous tidal volumes of 300 No fevers,remains on free water flushes of 240 q4 , for hypernatremia. Objective Vital Signs - 12hr 01/14/20 01/14/20 01/14/20 01:15 01:30 01:45 Temperature Pulse Rate 61 59 L 64 Pulse Rate [ Bilateral] Pulse Rate [ From Monitor] Respiratory 14 14 14 Rate Respiratory Rate [Bilateral ] Respiratory Rate [pt denies ] Blood Pressure 113/53 112/53 114/60 O2 Sat by Pulse 96 96 97 Oximetry 01/14/20 01/14/20 01/14/20 02:00 02:15 02:31 Temperature Pulse Rate 54 L 56 L 80 Pulse Rate [ Bilateral] Pulse Rate [ From Monitor] Respiratory 14 14 20 Rate Respiratory Rate [Bilateral ] Respiratory Rate [pt denies ] Blood Pressure 131/50 111/51 107/54 O2 Sat by Pulse 94 96 96 Oximetry 01/14/20 01/14/20 01/14/20 02:45 03:00 03:15 Temperature Pulse Rate 55 L 56 L 56 L Pulse Rate [ Bilateral] Pulse Rate [ From Monitor] Respiratory 14 14 14 Rate Respiratory Rate [Bilateral ] Respiratory Rate [pt denies ] Blood Pressure 113/56 114/57 115/53 O2 Sat by Pulse 96 97 97 Oximetry 01/14/20 01/14/20 01/14/20 03:30 03:45 04:00 Temperature 97.6 F Pulse Rate 56 L 53 L 58 L Pulse Rate [ Bilateral] Pulse Rate [ 58 L From Monitor] Respiratory 14 15 14 Rate Respiratory Rate [Bilateral ] Respiratory Rate [pt denies ] Blood Pressure 125/55 125/55 O2 Sat by Pulse 98 97 100 Oximetry 01/14/20 01/14/20 01/14/20 04:01 04:15 04:16 Temperature Pulse Rate 57 L 56 L 64 Pulse Rate [ Bilateral] Pulse Rate [ From Monitor] Respiratory 14 14 Rate Respiratory Rate [Bilateral ] Respiratory Rate [pt denies ] Blood Pressure 150/48 121/55 121/55 O2 Sat by Pulse 97 97 92 Oximetry 01/14/20 01/14/20 01/14/20 04:30 04:45 05:01 Temperature Pulse Rate 52 L 55 L 56 L Pulse Rate [ Bilateral] Pulse Rate [ From Monitor] Respiratory 14 14 14 Rate Respiratory Rate [Bilateral ] Respiratory Rate [pt denies ] Blood Pressure 112/58 100/61 128/54 O2 Sat by Pulse 94 95 94 Oximetry 01/14/20 01/14/20 01/14/20 05:15 05:30 05:45 Temperature Pulse Rate 47 L 55 L 55 L Pulse Rate [ Bilateral] Pulse Rate [ From Monitor] Respiratory 17 14 14 Rate Respiratory Rate [Bilateral ] Respiratory Rate [pt denies ] Blood Pressure 127/64 129/59 132/63 O2 Sat by Pulse 92 94 94 Oximetry 01/14/20 01/14/20 01/14/20 06:00 06:15 06:30 Temperature Pulse Rate 59 L 56 L 57 L Pulse Rate [ Bilateral] Pulse Rate [ From Monitor] Respiratory 14 14 14 Rate Respiratory Rate [Bilateral ] Respiratory Rate [pt denies ] Blood Pressure 138/51 131/59 132/62 O2 Sat by Pulse 95 95 96 Oximetry 01/14/20 01/14/20 01/14/20 06:45 07:00 07:15 Temperature Pulse Rate 58 L 61 64 Pulse Rate [ Bilateral] Pulse Rate [ From Monitor] Respiratory 14 14 14 Rate Respiratory Rate [Bilateral ] Respiratory Rate [pt denies ] Blood Pressure 119/53 116/56 107/48 O2 Sat by Pulse 96 97 97 Oximetry 01/14/20 01/14/20 01/14/20 07:30 07:45 08:00 Temperature 97.6 F Pulse Rate 56 L 61 45 L Pulse Rate [ Bilateral] Pulse Rate [ 58 L From Monitor] Respiratory 14 14 14 Rate Respiratory Rate [Bilateral ] Respiratory Rate [pt denies ] Blood Pressure 131/57 116/52 118/57 O2 Sat by Pulse 95 98 97 Oximetry 01/14/20 01/14/20 01/14/20 08:15 08:31 08:45 Temperature Pulse Rate 61 82 59 L Pulse Rate [ Bilateral] Pulse Rate [ From Monitor] Respiratory 14 16 14 Rate Respiratory Rate [Bilateral ] Respiratory Rate [pt denies ] Blood Pressure 124/50 114/57 134/66 O2 Sat by Pulse 96 91 94 Oximetry 01/14/20 01/14/20 01/14/20 08:46 09:01 09:15 Temperature Pulse Rate 55 L 55 L 62 Pulse Rate [ Bilateral] Pulse Rate [ From Monitor] Respiratory 19 19 15 Rate Respiratory Rate [Bilateral ] Respiratory Rate [pt denies ] Blood Pressure 134/66 78/57 78/57 O2 Sat by Pulse 100 92 93 Oximetry 01/14/20 01/14/20 01/14/20 09:28 09:31 09:45 Temperature Pulse Rate 59 L 73 Pulse Rate [ 68 Bilateral] Pulse Rate [ From Monitor] Respiratory 16 16 Rate Respiratory 15 Rate [Bilateral ] Respiratory Rate [pt denies ] Blood Pressure 137/117 134/71 O2 Sat by Pulse 94 96 Oximetry 01/14/20 01/14/20 01/14/20 10:00 10:01 10:03 Temperature Pulse Rate 61 57 L Pulse Rate [ Bilateral] Pulse Rate [ From Monitor] Respiratory 16 Rate Respiratory Rate [Bilateral ] Respiratory 22 Rate [pt denies ] Blood Pressure 95/75 95/75 O2 Sat by Pulse 95 95 Oximetry 01/14/20 01/14/20 01/14/20 10:15 10:30 10:45 Temperature Pulse Rate 65 66 70 Pulse Rate [ Bilateral] Pulse Rate [ From Monitor] Respiratory 14 14 14 Rate Respiratory Rate [Bilateral ] Respiratory Rate [pt denies ] Blood Pressure 119/62 126/56 119/55 O2 Sat by Pulse 96 99 98 Oximetry 01/14/20 01/14/20 01/14/20 11:01 11:15 11:31 Temperature Pulse Rate 73 Pulse Rate [ Bilateral] Pulse Rate [ From Monitor] Respiratory Rate Respiratory Rate [Bilateral ] Respiratory Rate [pt denies ] Blood Pressure 119/55 119/55 119/55 O2 Sat by Pulse 86 97 92 Oximetry 01/14/20 01/14/20 01/14/20 11:45 11:58 12:00 Temperature 98.2 F Pulse Rate 75 Pulse Rate [ Bilateral] Pulse Rate [ 58 L From Monitor] Respiratory Rate Respiratory Rate [Bilateral ] Respiratory Rate [pt denies ] Blood Pressure 119/55 O2 Sat by Pulse 93 100 Oximetry 01/14/20 12:01 Temperature Pulse Rate 51 L Pulse Rate [ Bilateral] Pulse Rate [ From Monitor] Respiratory Rate Respiratory Rate [Bilateral ] Respiratory Rate [pt denies ] Blood Pressure 135/58 O2 Sat by Pulse 96 Oximetry Constitutional: no acute distress, other (elderly obese AAM with mildly increrased respiratory effort at rest on MVS) Eyes: non-icteric ENT: oropharynx moist, other (ETT 24 cm KOLBY) Neck: supple, no lymphadenopathy, no JVD Effort: normal Ascultation: Bilateral: diminished breath sounds, rhonchi, other (diminished bibasilar air entry) Percussion: Bilateral: not dull Cardiovascular: regular rate and rhythm (Bradycardia), other (S1,S2) Gastrointestinal: normoactive bowel sounds, soft, non-tender, other (protuberant) Integumentary: rash (stasis dermatyitis) Extremities: no cyanosis, pink and warm, pulses normal, no ischemia or petechiae, edema (trace) Neurologic: pupils equal and round, other (responds to verbal and tactile stimuli) Psychiatric: other (unable to assess) CBC and BMP: 01/13/20 Unknown 01/13/20 04:00 ABG, PT/INR, D-dimer: ABG ABG pH 7.223 pH Units (7.350-7.450) L 01/13/20 15:10 ABG pCO2 82.3 mm Hg 01/13/20 15:10 ABG pO2 81.4 mm Hg (80.0-90.0) 01/13/20 15:10 ABG O2 Saturation 94.7 % (95.0-99.0) L 01/13/20 15:10 PT/INR, D-dimer PT 14.0 Sec. (12.2-14.9) 12/18/19 14:45 INR 1.10 (0.87-1.13) 12/18/19 14:45 D-Dimer 534.45 ng/mlDDU (0-234) H 12/18/19 14:45 Abnormal lab findings: Abnormal Labs 12/18/19 12/18/19 12/18/19 12:23 14:45 14:45 WBC RBC Hgb 10.4 L Hct 35.2 L MCV MCH 25 L MCHC 30 L RDW 18.8 H Plt Count Lymph % (Auto) [place] % (Auto) 11.6 H Eos % (Auto) 4.8 H Baso % (Auto) Lymph # [place] # 1.0 H Eos # Baso # Seg Neutrophils % Monocytes % (Manual) Monocytes # (Manual) D-Dimer ABG pH ABG pO2 ABG HCO3 ABG O2 Saturation ABG Base Excess ABG Hemoglobin Oxyhemoglobin Sodium Potassium Chloride Carbon Dioxide BUN Creatinine Glucose POC Glucose 328 H Lactic Acid Calcium Magnesium AST ALT Lactate Dehydrogenase Total Creatine Kinase 40 L C-Reactive Protein Total Protein Albumin Free T4 Urine WBC (Auto) Urine Total Protein Digoxin Salicylates Acetaminophen 12/18/19 12/18/19 12/18/19 14:45 14:45 14:45 WBC RBC Hgb Hct MCV MCH MCHC RDW Plt Count Lymph % (Auto) [place] % (Auto) Eos % (Auto) Baso % (Auto) Lymph # [place] # Eos # Baso # Seg Neutrophils % Monocytes % (Manual) Monocytes # (Manual) D-Dimer 534.45 H ABG pH ABG pO2 ABG HCO3 ABG O2 Saturation ABG Base Excess ABG Hemoglobin Oxyhemoglobin Sodium 156 H Potassium Chloride 112.3 H Carbon Dioxide 31 H BUN 32 H Creatinine Glucose 328 H POC Glucose Lactic Acid Calcium Magnesium AST ALT Lactate Dehydrogenase 235 H Total Creatine Kinase C-Reactive Protein 8.50 H Total Protein Albumin 3.6 L Free T4 Urine WBC (Auto) Urine Total Protein Digoxin 0.3 L Salicylates < 0.3 L Acetaminophen 12/18/19 12/18/19 12/18/19 14:45 14:45 16:00 WBC RBC Hgb Hct MCV MCH MCHC RDW Plt Count Lymph % (Auto) [place] % (Auto) Eos % (Auto) Baso % (Auto) Lymph # [place] # Eos # Baso # Seg Neutrophils % Monocytes % (Manual) Monocytes # (Manual) D-Dimer ABG pH ABG pO2 69.8 L ABG HCO3 31.8 H ABG O2 Saturation ABG Base Excess 5.4 H ABG Hemoglobin 10.0 L Oxyhemoglobin 92.9 L Sodium Potassium Chloride Carbon Dioxide BUN Creatinine Glucose 314 H POC Glucose Lactic Acid Calcium Magnesium AST ALT Lactate Dehydrogenase 236 H Total Creatine Kinase C-Reactive Protein 8.40 H Total Protein Albumin Free T4 Urine WBC (Auto) Urine Total Protein Digoxin Salicylates Acetaminophen < 5.0 L 12/18/19 12/18/19 12/18/19 16:35 18:30 22:56 WBC RBC Hgb Hct MCV MCH MCHC RDW Plt Count Lymph % (Auto) [place] % (Auto) Eos % (Auto) Baso % (Auto) Lymph # [place] # Eos # Baso # Seg Neutrophils % Monocytes % (Manual) Monocytes # (Manual) D-Dimer ABG pH ABG pO2 ABG HCO3 ABG O2 Saturation ABG Base Excess ABG Hemoglobin Oxyhemoglobin Sodium Potassium Chloride Carbon Dioxide BUN Creatinine Glucose POC Glucose 310 H 353 H Lactic Acid 2.50 H* Calcium Magnesium AST ALT Lactate Dehydrogenase Total Creatine Kinase C-Reactive Protein Total Protein Albumin Free T4 Urine WBC (Auto) Urine Total Protein Digoxin Salicylates Acetaminophen 12/19/19 12/19/19 12/19/19 04:13 04:13 06:00 WBC RBC Hgb 10.0 L Hct 34.2 L MCV MCH 25 L MCHC 29 L RDW 19.0 H Plt Count Lymph % (Auto) [place] % (Auto) 10.1 H Eos % (Auto) Baso % (Auto) Lymph # [place] # 1.1 H Eos # Baso # Seg Neutrophils % 71.8 H Monocytes % (Manual) Monocytes # (Manual) D-Dimer ABG pH ABG pO2 186.5 H ABG HCO3 27.8 H ABG O2 Saturation 99.1 H ABG Base Excess ABG Hemoglobin 10.4 L Oxyhemoglobin Sodium 157 H Potassium Chloride 119.1 H Carbon Dioxide BUN 26 H Creatinine Glucose 302 H POC Glucose Lactic Acid Calcium 7.9 L Magnesium AST 85 H ALT 61 H Lactate Dehydrogenase Total Creatine Kinase C-Reactive Protein Total Protein Albumin 3.0 L Free T4 Urine WBC (Auto) Urine Total Protein Digoxin Salicylates Acetaminophen 12/19/19 12/19/19 12/19/19 08:30 11:55 16:50 WBC RBC Hgb Hct MCV MCH MCHC RDW Plt Count Lymph % (Auto) [place] % (Auto) Eos % (Auto) Baso % (Auto) Lymph # [place] # Eos # Baso # Seg Neutrophils % Monocytes % (Manual) Monocytes # (Manual) D-Dimer ABG pH ABG pO2 ABG HCO3 ABG O2 Saturation ABG Base Excess ABG Hemoglobin Oxyhemoglobin Sodium Potassium Chloride Carbon Dioxide BUN Creatinine Glucose POC Glucose 264 H 251 H Lactic Acid Calcium Magnesium AST ALT Lactate Dehydrogenase Total Creatine Kinase C-Reactive Protein Total Protein Albumin Free T4 Urine WBC (Auto) 7.0 H Urine Total Protein Digoxin Salicylates Acetaminophen 12/19/19 12/19/19 12/20/19 17:41 23:42 03:35 WBC RBC Hgb Hct MCV MCH MCHC RDW Plt Count Lymph % (Auto) [place] % (Auto) Eos % (Auto) Baso % (Auto) Lymph # [place] # Eos # Baso # Seg Neutrophils % Monocytes % (Manual) Monocytes # (Manual) D-Dimer ABG pH ABG pO2 ABG HCO3 27.7 H ABG O2 Saturation ABG Base Excess ABG Hemoglobin 11.6 L Oxyhemoglobin 94.9 L Sodium Potassium Chloride Carbon Dioxide BUN Creatinine Glucose POC Glucose 180 H 205 H Lactic Acid Calcium Magnesium AST ALT Lactate Dehydrogenase Total Creatine Kinase C-Reactive Protein Total Protein Albumin Free T4 Urine WBC (Auto) Urine Total Protein Digoxin Salicylates Acetaminophen 12/20/19 12/20/19 12/20/19 04:45 04:45 05:27 WBC RBC Hgb 9.4 L Hct 31.4 L MCV MCH 25 L MCHC 30 L RDW 19.4 H Plt Count Lymph % (Auto) [place] % (Auto) 10.2 H Eos % (Auto) 6.0 H Baso % (Auto) Lymph # 0.9 L [place] # Eos # Baso # Seg Neutrophils % Monocytes % (Manual) Monocytes # (Manual) D-Dimer ABG pH ABG pO2 ABG HCO3 ABG O2 Saturation ABG Base Excess ABG Hemoglobin Oxyhemoglobin Sodium 153 H Potassium Chloride 114.6 H Carbon Dioxide BUN Creatinine Glucose 170 H POC Glucose 188 H Lactic Acid Calcium 7.9 L Magnesium AST ALT Lactate Dehydrogenase Total Creatine Kinase C-Reactive Protein Total Protein Albumin Free T4 Urine WBC (Auto) Urine Total Protein Digoxin Salicylates Acetaminophen 12/20/19 12/20/19 12/21/19 12:26 18:20 00:20 WBC RBC Hgb Hct MCV MCH MCHC RDW Plt Count Lymph % (Auto) [place] % (Auto) Eos % (Auto) Baso % (Auto) Lymph # [place] # Eos # Baso # Seg Neutrophils % Monocytes % (Manual) Monocytes # (Manual) D-Dimer ABG pH ABG pO2 ABG HCO3 ABG O2 Saturation ABG Base Excess ABG Hemoglobin Oxyhemoglobin Sodium Potassium Chloride Carbon Dioxide BUN Creatinine Glucose POC Glucose 200 H 263 H 218 H Lactic Acid Calcium Magnesium AST ALT Lactate Dehydrogenase Total Creatine Kinase C-Reactive Protein Total Protein Albumin Free T4 Urine WBC (Auto) Urine Total Protein Digoxin Salicylates Acetaminophen 12/21/19 12/21/19 12/21/19 04:38 05:26 12:35 WBC RBC Hgb Hct MCV MCH MCHC RDW Plt Count Lymph % (Auto) [place] % (Auto) Eos % (Auto) Baso % (Auto) Lymph # [place] # Eos # Baso # Seg Neutrophils % Monocytes % (Manual) Monocytes # (Manual) D-Dimer ABG pH ABG pO2 ABG HCO3 ABG O2 Saturation ABG Base Excess ABG Hemoglobin Oxyhemoglobin Sodium 149 H Potassium 3.5 L Chloride 110.5 H Carbon Dioxide BUN Creatinine Glucose 158 H POC Glucose 193 H 193 H Lactic Acid Calcium Magnesium AST ALT Lactate Dehydrogenase Total Creatine Kinase C-Reactive Protein Total Protein Albumin Free T4 Urine WBC (Auto) Urine Total Protein Digoxin Salicylates Acetaminophen 12/21/19 12/22/19 12/22/19 18:29 00:03 05:15 WBC RBC Hgb 10.3 L Hct 34.7 L MCV MCH 25 L MCHC 30 L RDW 19.4 H Plt Count Lymph % (Auto) 9.0 L [place] % (Auto) 12.3 H Eos % (Auto) 5.0 H Baso % (Auto) Lymph # 0.5 L [place] # Eos # Baso # Seg Neutrophils % 73.2 H Monocytes % (Manual) Monocytes # (Manual) D-Dimer ABG pH ABG pO2 ABG HCO3 ABG O2 Saturation ABG Base Excess ABG Hemoglobin Oxyhemoglobin Sodium Potassium Chloride Carbon Dioxide BUN Creatinine Glucose POC Glucose 186 H 143 H Lactic Acid Calcium Magnesium AST ALT Lactate Dehydrogenase Total Creatine Kinase C-Reactive Protein Total Protein Albumin Free T4 Urine WBC (Auto) Urine Total Protein Digoxin Salicylates Acetaminophen 12/22/19 12/22/19 12/22/19 05:15 06:02 12:13 WBC RBC Hgb Hct MCV MCH MCHC RDW Plt Count Lymph % (Auto) [place] % (Auto) Eos % (Auto) Baso % (Auto) Lymph # [place] # Eos # Baso # Seg Neutrophils % Monocytes % (Manual) Monocytes # (Manual) D-Dimer ABG pH ABG pO2 ABG HCO3 ABG O2 Saturation ABG Base Excess ABG Hemoglobin Oxyhemoglobin Sodium 152 H Potassium Chloride 113.5 H Carbon Dioxide BUN Creatinine Glucose 126 H POC Glucose 144 H 159 H Lactic Acid Calcium Magnesium AST ALT Lactate Dehydrogenase Total Creatine Kinase C-Reactive Protein Total Protein Albumin Free T4 Urine WBC (Auto) Urine Total Protein Digoxin Salicylates Acetaminophen 12/22/19 12/22/19 12/23/19 18:03 23:50 05:27 WBC RBC Hgb Hct MCV MCH MCHC RDW Plt Count Lymph % (Auto) [place] % (Auto) Eos % (Auto) Baso % (Auto) Lymph # [place] # Eos # Baso # Seg Neutrophils % Monocytes % (Manual) Monocytes # (Manual) D-Dimer ABG pH ABG pO2 ABG HCO3 ABG O2 Saturation ABG Base Excess ABG Hemoglobin Oxyhemoglobin Sodium Potassium Chloride Carbon Dioxide BUN Creatinine Glucose POC Glucose 140 H 227 H 185 H Lactic Acid Calcium Magnesium AST ALT Lactate Dehydrogenase Total Creatine Kinase C-Reactive Protein Total Protein Albumin Free T4 Urine WBC (Auto) Urine Total Protein Digoxin Salicylates Acetaminophen 12/23/19 12/23/19 12/23/19 12:13 16:05 16:40 WBC RBC Hgb Hct MCV MCH MCHC RDW Plt Count Lymph % (Auto) [place] % (Auto) Eos % (Auto) Baso % (Auto) Lymph # [place] # Eos # Baso # Seg Neutrophils % Monocytes % (Manual) Monocytes # (Manual) D-Dimer ABG pH 7.259 L ABG pO2 76.2 L ABG HCO3 30.6 H ABG O2 Saturation 94.6 L ABG Base Excess ABG Hemoglobin 11.5 L Oxyhemoglobin 92.2 L Sodium 163 H* D Potassium 3.4 L Chloride 120.1 H Carbon Dioxide BUN Creatinine Glucose 162 H POC Glucose 132 H Lactic Acid Calcium Magnesium AST ALT Lactate Dehydrogenase Total Creatine Kinase C-Reactive Protein Total Protein Albumin Free T4 Urine WBC (Auto) Urine Total Protein Digoxin Salicylates Acetaminophen 12/23/19 12/24/19 12/24/19 17:53 00:48 04:20 WBC RBC Hgb Hct MCV MCH MCHC RDW Plt Count Lymph % (Auto) [place] % (Auto) Eos % (Auto) Baso % (Auto) Lymph # [place] # Eos # Baso # Seg Neutrophils % Monocytes % (Manual) Monocytes # (Manual) D-Dimer ABG pH ABG pO2 ABG HCO3 30.4 H ABG O2 Saturation ABG Base Excess 3.9 H ABG Hemoglobin 10.3 L Oxyhemoglobin 94.4 L Sodium Potassium Chloride Carbon Dioxide BUN Creatinine Glucose POC Glucose 180 H 174 H Lactic Acid Calcium Magnesium AST ALT Lactate Dehydrogenase Total Creatine Kinase C-Reactive Protein Total Protein Albumin Free T4 Urine WBC (Auto) Urine Total Protein Digoxin Salicylates Acetaminophen 12/24/19 12/24/19 12/24/19 04:53 04:53 11:50 WBC RBC Hgb 9.7 L Hct 33.2 L MCV MCH 25 L MCHC 29 L RDW 20.1 H Plt Count Lymph % (Auto) [place] % (Auto) Eos % (Auto) Baso % (Auto) Lymph # [place] # Eos # Baso # Seg Neutrophils % Monocytes % (Manual) 15.0 H Monocytes # (Manual) 0.9 H D-Dimer ABG pH ABG pO2 ABG HCO3 ABG O2 Saturation ABG Base Excess ABG Hemoglobin Oxyhemoglobin Sodium 163 H* Potassium 3.2 L Chloride 122.6 H Carbon Dioxide BUN Creatinine Glucose 168 H POC Glucose 190 H Lactic Acid Calcium Magnesium AST ALT Lactate Dehydrogenase Total Creatine Kinase C-Reactive Protein Total Protein Albumin Free T4 Urine WBC (Auto) Urine Total Protein Digoxin Salicylates Acetaminophen 12/24/19 12/24/19 12/24/19 15:00 16:28 21:15 WBC RBC Hgb Hct MCV MCH MCHC RDW Plt Count Lymph % (Auto) [place] % (Auto) Eos % (Auto) Baso % (Auto) Lymph # [place] # Eos # Baso # Seg Neutrophils % Monocytes % (Manual) Monocytes # (Manual) D-Dimer ABG pH ABG pO2 ABG HCO3 ABG O2 Saturation ABG Base Excess ABG Hemoglobin Oxyhemoglobin Sodium 165 H* D 163 H* Potassium Chloride Carbon Dioxide BUN Creatinine Glucose POC Glucose 160 H Lactic Acid Calcium Magnesium AST ALT Lactate Dehydrogenase Total Creatine Kinase C-Reactive Protein Total Protein Albumin Free T4 Urine WBC (Auto) Urine Total Protein Digoxin Salicylates Acetaminophen 12/25/19 12/25/19 12/25/19 00:31 05:38 05:46 WBC RBC Hgb 9.7 L Hct 32.5 L MCV MCH 25 L MCHC 30 L RDW 19.4 H Plt Count Lymph % (Auto) [place] % (Auto) Eos % (Auto) Baso % (Auto) Lymph # [place] # Eos # Baso # Seg Neutrophils % Monocytes % (Manual) Monocytes # (Manual) D-Dimer ABG pH ABG pO2 ABG HCO3 ABG O2 Saturation ABG Base Excess ABG Hemoglobin Oxyhemoglobin Sodium Potassium Chloride Carbon Dioxide BUN Creatinine Glucose POC Glucose 182 H 194 H Lactic Acid Calcium Magnesium AST ALT Lactate Dehydrogenase Total Creatine Kinase C-Reactive Protein Total Protein Albumin Free T4 Urine WBC (Auto) Urine Total Protein Digoxin Salicylates Acetaminophen 12/25/19 12/25/19 12/25/19 05:46 11:35 11:38 WBC RBC Hgb Hct MCV MCH MCHC RDW Plt Count Lymph % (Auto) [place] % (Auto) Eos % (Auto) Baso % (Auto) Lymph # [place] # Eos # Baso # Seg Neutrophils % Monocytes % (Manual) Monocytes # (Manual) D-Dimer ABG pH 7.330 L ABG pO2 65.7 L ABG HCO3 32.6 H ABG O2 Saturation 92.5 L ABG Base Excess 5.3 H ABG Hemoglobin 10.4 L Oxyhemoglobin 90.0 L Sodium 166 H* Potassium 2.9 L* Chloride 124.5 H Carbon Dioxide BUN Creatinine Glucose 190 H POC Glucose 192 H Lactic Acid Calcium Magnesium AST ALT Lactate Dehydrogenase Total Creatine Kinase C-Reactive Protein Total Protein Albumin Free T4 Urine WBC (Auto) Urine Total Protein Digoxin Salicylates Acetaminophen 12/25/19 12/25/19 12/25/19 13:01 16:45 17:20 WBC RBC Hgb Hct MCV MCH MCHC RDW Plt Count Lymph % (Auto) [place] % (Auto) Eos % (Auto) Baso % (Auto) Lymph # [place] # Eos # Baso # Seg Neutrophils % Monocytes % (Manual) Monocytes # (Manual) D-Dimer ABG pH 7.296 L ABG pO2 101.5 H ABG HCO3 33.2 H ABG O2 Saturation ABG Base Excess 5.3 H ABG Hemoglobin 9.6 L Oxyhemoglobin 94.6 L Sodium 174 H* Potassium Chloride Carbon Dioxide BUN Creatinine Glucose POC Glucose Lactic Acid Calcium Magnesium AST ALT Lactate Dehydrogenase Total Creatine Kinase C-Reactive Protein Total Protein Albumin Free T4 Urine WBC (Auto) Urine Total Protein < 4 L Digoxin Salicylates Acetaminophen 12/25/19 12/25/19 12/26/19 17:48 18:50 00:43 WBC RBC Hgb Hct MCV MCH MCHC RDW Plt Count Lymph % (Auto) [place] % (Auto) Eos % (Auto) Baso % (Auto) Lymph # [place] # Eos # Baso # Seg Neutrophils % Monocytes % (Manual) Monocytes # (Manual) D-Dimer ABG pH ABG pO2 ABG HCO3 ABG O2 Saturation ABG Base Excess ABG Hemoglobin Oxyhemoglobin Sodium 166 H* 164 H* Potassium Chloride 127.3 H Carbon Dioxide BUN Creatinine Glucose 220 H POC Glucose 252 H Lactic Acid Calcium Magnesium AST ALT Lactate Dehydrogenase Total Creatine Kinase C-Reactive Protein Total Protein Albumin Free T4 Urine WBC (Auto) Urine Total Protein Digoxin Salicylates Acetaminophen 12/26/19 12/26/19 12/26/19 05:31 08:07 08:07 WBC 4.3 L RBC Hgb 9.6 L Hct 32.1 L MCV MCH 26 L MCHC 30 L RDW 20.5 H Plt Count Lymph % (Auto) [place] % (Auto) Eos % (Auto) Baso % (Auto) Lymph # [place] # Eos # Baso # Seg Neutrophils % Monocytes % (Manual) Monocytes # (Manual) D-Dimer ABG pH ABG pO2 ABG HCO3 ABG O2 Saturation ABG Base Excess ABG Hemoglobin Oxyhemoglobin Sodium 162 H* Potassium Chloride 122.1 H Carbon Dioxide BUN Creatinine Glucose 247 H POC Glucose 187 H Lactic Acid Calcium Magnesium AST ALT Lactate Dehydrogenase Total Creatine Kinase C-Reactive Protein Total Protein Albumin Free T4 Urine WBC (Auto) Urine Total Protein Digoxin Salicylates Acetaminophen 12/26/19 12/26/19 12/26/19 08:07 12:20 16:25 WBC RBC Hgb Hct MCV MCH MCHC RDW Plt Count Lymph % (Auto) [place] % (Auto) Eos % (Auto) Baso % (Auto) Lymph # [place] # Eos # Baso # Seg Neutrophils % Monocytes % (Manual) Monocytes # (Manual) D-Dimer ABG pH 7.290 L ABG pO2 73.2 L ABG HCO3 33.2 H ABG O2 Saturation 94.9 L ABG Base Excess 5.2 H ABG Hemoglobin 10.0 L Oxyhemoglobin 92.5 L Sodium 159 H Potassium Chloride Carbon Dioxide BUN Creatinine Glucose POC Glucose 234 H Lactic Acid Calcium Magnesium AST ALT Lactate Dehydrogenase Total Creatine Kinase C-Reactive Protein Total Protein Albumin Free T4 Urine WBC (Auto) Urine Total Protein Digoxin Salicylates Acetaminophen 12/26/19 12/26/19 12/26/19 17:33 22:35 23:30 WBC RBC Hgb Hct MCV MCH MCHC RDW Plt Count Lymph % (Auto) [place] % (Auto) Eos % (Auto) Baso % (Auto) Lymph # [place] # Eos # Baso # Seg Neutrophils % Monocytes % (Manual) Monocytes # (Manual) D-Dimer ABG pH ABG pO2 ABG HCO3 ABG O2 Saturation ABG Base Excess ABG Hemoglobin Oxyhemoglobin Sodium Potassium Chloride Carbon Dioxide BUN Creatinine Glucose POC Glucose 244 H 208 H 287 H Lactic Acid Calcium Magnesium AST ALT Lactate Dehydrogenase Total Creatine Kinase C-Reactive Protein Total Protein Albumin Free T4 Urine WBC (Auto) Urine Total Protein Digoxin Salicylates Acetaminophen 12/27/19 12/27/19 12/27/19 03:48 03:48 03:48 WBC RBC Hgb 10.1 L Hct 35.4 L MCV MCH 25 L MCHC 29 L RDW 20.1 H Plt Count Lymph % (Auto) [place] % (Auto) Eos % (Auto) Baso % (Auto) Lymph # [place] # Eos # Baso # Seg Neutrophils % Monocytes % (Manual) Monocytes # (Manual) D-Dimer ABG pH ABG pO2 ABG HCO3 ABG O2 Saturation ABG Base Excess ABG Hemoglobin Oxyhemoglobin Sodium 160 H Potassium Chloride 118.8 H Carbon Dioxide 33 H BUN Creatinine Glucose 217 H POC Glucose Lactic Acid Calcium Magnesium 2.70 H AST ALT Lactate Dehydrogenase Total Creatine Kinase C-Reactive Protein Total Protein Albumin Free T4 Urine WBC (Auto) Urine Total Protein Digoxin Salicylates Acetaminophen 12/27/19 12/27/19 12/27/19 05:50 11:58 16:05 WBC RBC Hgb Hct MCV MCH MCHC RDW Plt Count Lymph % (Auto) [place] % (Auto) Eos % (Auto) Baso % (Auto) Lymph # [place] # Eos # Baso # Seg Neutrophils % Monocytes % (Manual) Monocytes # (Manual) D-Dimer ABG pH 7.180 L* ABG pO2 73.6 L ABG HCO3 34.8 H ABG O2 Saturation 92.7 L ABG Base Excess 3.8 H ABG Hemoglobin 12.0 L Oxyhemoglobin 90.2 L Sodium Potassium Chloride Carbon Dioxide BUN Creatinine Glucose POC Glucose 224 H 218 H Lactic Acid Calcium Magnesium AST ALT Lactate Dehydrogenase Total Creatine Kinase C-Reactive Protein Total Protein Albumin Free T4 Urine WBC (Auto) Urine Total Protein Digoxin Salicylates Acetaminophen 12/27/19 12/27/19 12/27/19 18:05 19:50 21:53 WBC RBC Hgb Hct MCV MCH MCHC RDW Plt Count Lymph % (Auto) [place] % (Auto) Eos % (Auto) Baso % (Auto) Lymph # [place] # Eos # Baso # Seg Neutrophils % Monocytes % (Manual) Monocytes # (Manual) D-Dimer ABG pH 7.328 L ABG pO2 49.9 L ABG HCO3 33.3 H ABG O2 Saturation 87.1 L ABG Base Excess 5.7 H ABG Hemoglobin 11.2 L Oxyhemoglobin 84.8 L Sodium Potassium Chloride Carbon Dioxide BUN Creatinine Glucose POC Glucose 214 H 178 H Lactic Acid Calcium Magnesium AST ALT Lactate Dehydrogenase Total Creatine Kinase C-Reactive Protein Total Protein Albumin Free T4 Urine WBC (Auto) Urine Total Protein Digoxin Salicylates Acetaminophen 12/28/19 12/28/19 12/28/19 00:42 04:37 04:37 WBC RBC Hgb 9.8 L Hct 33.5 L MCV MCH 25 L MCHC 29 L RDW 21.1 H Plt Count Lymph % (Auto) [place] % (Auto) Eos % (Auto) Baso % (Auto) Lymph # [place] # Eos # Baso # Seg Neutrophils % Monocytes % (Manual) Monocytes # (Manual) D-Dimer ABG pH ABG pO2 ABG HCO3 ABG O2 Saturation ABG Base Excess ABG Hemoglobin Oxyhemoglobin Sodium 157 H Potassium 3.4 L Chloride 117.5 H Carbon Dioxide BUN Creatinine Glucose 193 H POC Glucose 157 H Lactic Acid Calcium Magnesium AST ALT Lactate Dehydrogenase Total Creatine Kinase C-Reactive Protein Total Protein Albumin Free T4 Urine WBC (Auto) Urine Total Protein Digoxin Salicylates Acetaminophen 12/28/19 12/28/19 12/28/19 04:52 05:19 12:05 WBC RBC Hgb Hct MCV MCH MCHC RDW Plt Count Lymph % (Auto) [place] % (Auto) Eos % (Auto) Baso % (Auto) Lymph # [place] # Eos # Baso # Seg Neutrophils % Monocytes % (Manual) Monocytes # (Manual) D-Dimer ABG pH ABG pO2 51.7 L ABG HCO3 28.7 H ABG O2 Saturation 89.9 L ABG Base Excess 4.1 H ABG Hemoglobin 9.7 L Oxyhemoglobin 87.7 L Sodium Potassium Chloride Carbon Dioxide BUN Creatinine Glucose POC Glucose 202 H 248 H Lactic Acid Calcium Magnesium AST ALT Lactate Dehydrogenase Total Creatine Kinase C-Reactive Protein Total Protein Albumin Free T4 Urine WBC (Auto) Urine Total Protein Digoxin Salicylates Acetaminophen 12/28/19 12/28/19 12/28/19 18:11 21:15 23:22 WBC RBC Hgb Hct MCV MCH MCHC RDW Plt Count Lymph % (Auto) [place] % (Auto) Eos % (Auto) Baso % (Auto) Lymph # [place] # Eos # Baso # Seg Neutrophils % Monocytes % (Manual) Monocytes # (Manual) D-Dimer ABG pH ABG pO2 ABG HCO3 ABG O2 Saturation ABG Base Excess ABG Hemoglobin Oxyhemoglobin Sodium Potassium Chloride Carbon Dioxide BUN Creatinine Glucose POC Glucose 226 H 217 H 227 H Lactic Acid Calcium Magnesium AST ALT Lactate Dehydrogenase Total Creatine Kinase C-Reactive Protein Total Protein Albumin Free T4 Urine WBC (Auto) Urine Total Protein Digoxin Salicylates Acetaminophen 12/29/19 12/29/19 12/29/19 04:09 04:59 04:59 WBC 11.1 H RBC Hgb 9.3 L Hct 31.1 L MCV 81 L MCH 24 L MCHC 30 L RDW 19.9 H Plt Count Lymph % (Auto) [place] % (Auto) Eos % (Auto) Baso % (Auto) Lymph # [place] # Eos # Baso # Seg Neutrophils % Monocytes % (Manual) Monocytes # (Manual) D-Dimer ABG pH 7.473 H ABG pO2 126.1 H ABG HCO3 29.2 H ABG O2 Saturation ABG Base Excess 5.1 H ABG Hemoglobin 8.4 L Oxyhemoglobin Sodium 157 H Potassium 3.2 L Chloride 118.2 H Carbon Dioxide BUN Creatinine 1.7 H Glucose 229 H POC Glucose Lactic Acid Calcium Magnesium AST ALT Lactate Dehydrogenase Total Creatine Kinase C-Reactive Protein Total Protein Albumin Free T4 Urine WBC (Auto) Urine Total Protein Digoxin Salicylates Acetaminophen 12/29/19 12/29/19 12/29/19 05:15 12:13 17:59 WBC RBC Hgb Hct MCV MCH MCHC RDW Plt Count Lymph % (Auto) [place] % (Auto) Eos % (Auto) Baso % (Auto) Lymph # [place] # Eos # Baso # Seg Neutrophils % Monocytes % (Manual) Monocytes # (Manual) D-Dimer ABG pH ABG pO2 ABG HCO3 ABG O2 Saturation ABG Base Excess ABG Hemoglobin Oxyhemoglobin Sodium Potassium Chloride Carbon Dioxide BUN Creatinine Glucose POC Glucose 221 H 392 H 365 H Lactic Acid Calcium Magnesium AST ALT Lactate Dehydrogenase Total Creatine Kinase C-Reactive Protein Total Protein Albumin Free T4 Urine WBC (Auto) Urine Total Protein Digoxin Salicylates Acetaminophen 12/29/19 12/29/19 12/30/19 20:25 23:38 04:45 WBC RBC Hgb Hct MCV MCH MCHC RDW Plt Count Lymph % (Auto) [place] % (Auto) Eos % (Auto) Baso % (Auto) Lymph # [place] # Eos # Baso # Seg Neutrophils % Monocytes % (Manual) Monocytes # (Manual) D-Dimer ABG pH 7.261 L 7.343 L ABG pO2 60.3 L 54.3 L ABG HCO3 32.1 H 30.9 H ABG O2 Saturation 87.6 L 88.3 L ABG Base Excess 3.7 H 4.0 H ABG Hemoglobin 9.7 L 11.6 L Oxyhemoglobin 85.2 L 86.0 L Sodium Potassium Chloride Carbon Dioxide BUN Creatinine Glucose POC Glucose 402 H Lactic Acid Calcium Magnesium AST ALT Lactate Dehydrogenase Total Creatine Kinase C-Reactive Protein Total Protein Albumin Free T4 Urine WBC (Auto) Urine Total Protein Digoxin Salicylates Acetaminophen 12/30/19 12/30/19 12/30/19 05:06 05:06 05:06 WBC 11.7 H RBC Hgb 9.4 L Hct 32.4 L MCV 83 L MCH 24 L MCHC 29 L RDW 20.2 H Plt Count Lymph % (Auto) [place] % (Auto) Eos % (Auto) Baso % (Auto) Lymph # [place] # Eos # Baso # Seg Neutrophils % Monocytes % (Manual) Monocytes # (Manual) D-Dimer ABG pH ABG pO2 ABG HCO3 ABG O2 Saturation ABG Base Excess ABG Hemoglobin Oxyhemoglobin Sodium 159 H Potassium 3.2 L Chloride 120.1 H Carbon Dioxide 31 H BUN Creatinine 1.9 H Glucose 404 H POC Glucose Lactic Acid Calcium Magnesium 2.60 H AST ALT Lactate Dehydrogenase Total Creatine Kinase C-Reactive Protein Total Protein Albumin Free T4 Urine WBC (Auto) Urine Total Protein Digoxin Salicylates Acetaminophen 12/30/19 12/30/19 12/30/19 06:26 12:29 13:44 WBC RBC Hgb Hct MCV MCH MCHC RDW Plt Count Lymph % (Auto) [place] % (Auto) Eos % (Auto) Baso % (Auto) Lymph # [place] # Eos # Baso # Seg Neutrophils % Monocytes % (Manual) Monocytes # (Manual) D-Dimer ABG pH ABG pO2 ABG HCO3 ABG O2 Saturation ABG Base Excess ABG Hemoglobin Oxyhemoglobin Sodium Potassium Chloride Carbon Dioxide BUN Creatinine Glucose POC Glucose 399 H 469 H > 500 H Lactic Acid Calcium Magnesium AST ALT Lactate Dehydrogenase Total Creatine Kinase C-Reactive Protein Total Protein Albumin Free T4 Urine WBC (Auto) Urine Total Protein Digoxin Salicylates Acetaminophen 12/30/19 12/30/19 12/30/19 13:51 16:32 18:05 WBC RBC Hgb Hct MCV MCH MCHC RDW Plt Count Lymph % (Auto) [place] % (Auto) Eos % (Auto) Baso % (Auto) Lymph # [place] # Eos # Baso # Seg Neutrophils % Monocytes % (Manual) Monocytes # (Manual) D-Dimer ABG pH ABG pO2 ABG HCO3 ABG O2 Saturation ABG Base Excess ABG Hemoglobin Oxyhemoglobin Sodium Potassium Chloride Carbon Dioxide BUN Creatinine Glucose POC Glucose > 500 H 445 H 429 H Lactic Acid Calcium Magnesium AST ALT Lactate Dehydrogenase Total Creatine Kinase C-Reactive Protein Total Protein Albumin Free T4 Urine WBC (Auto) Urine Total Protein Digoxin Salicylates Acetaminophen 12/30/19 12/30/19 12/31/19 21:42 Unknown 00:00 WBC RBC Hgb Hct MCV MCH MCHC RDW Plt Count Lymph % (Auto) [place] % (Auto) Eos % (Auto) Baso % (Auto) Lymph # [place] # Eos # Baso # Seg Neutrophils % Monocytes % (Manual) Monocytes # (Manual) D-Dimer ABG pH ABG pO2 ABG HCO3 ABG O2 Saturation ABG Base Excess ABG Hemoglobin Oxyhemoglobin Sodium Potassium Chloride Carbon Dioxide BUN Creatinine Glucose 498 H POC Glucose 371 H 452 H Lactic Acid Calcium Magnesium AST ALT Lactate Dehydrogenase Total Creatine Kinase C-Reactive Protein Total Protein Albumin Free T4 Urine WBC (Auto) Urine Total Protein Digoxin Salicylates Acetaminophen 12/31/19 12/31/19 12/31/19 04:31 05:42 08:01 WBC RBC Hgb Hct MCV MCH MCHC RDW Plt Count Lymph % (Auto) [place] % (Auto) Eos % (Auto) Baso % (Auto) Lymph # [place] # Eos # Baso # Seg Neutrophils % Monocytes % (Manual) Monocytes # (Manual) D-Dimer ABG pH 7.251 L ABG pO2 62.4 L ABG HCO3 31.1 H ABG O2 Saturation 88.7 L ABG Base Excess ABG Hemoglobin 8.7 L Oxyhemoglobin 86.4 L Sodium Potassium Chloride Carbon Dioxide BUN Creatinine Glucose POC Glucose 443 H 443 H Lactic Acid Calcium Magnesium AST ALT Lactate Dehydrogenase Total Creatine Kinase C-Reactive Protein Total Protein Albumin Free T4 Urine WBC (Auto) Urine Total Protein Digoxin Salicylates Acetaminophen 12/31/19 12/31/19 12/31/19 09:08 10:00 11:50 WBC RBC Hgb Hct MCV MCH MCHC RDW Plt Count Lymph % (Auto) [place] % (Auto) Eos % (Auto) Baso % (Auto) Lymph # [place] # Eos # Baso # Seg Neutrophils % Monocytes % (Manual) Monocytes # (Manual) D-Dimer ABG pH 7.325 L ABG pO2 97.2 H ABG HCO3 30.1 H ABG O2 Saturation ABG Base Excess 3.4 H ABG Hemoglobin 8.3 L Oxyhemoglobin 94.7 L Sodium 151 H D Potassium 3.2 L Chloride 113.0 H Carbon Dioxide BUN 23 H Creatinine 1.8 H Glucose 373 H POC Glucose 465 H Lactic Acid Calcium Magnesium AST ALT Lactate Dehydrogenase Total Creatine Kinase C-Reactive Protein Total Protein Albumin Free T4 Urine WBC (Auto) Urine Total Protein Digoxin Salicylates Acetaminophen 12/31/19 12/31/19 12/31/19 12:25 13:33 18:30 WBC RBC Hgb Hct MCV MCH MCHC RDW Plt Count Lymph % (Auto) [place] % (Auto) Eos % (Auto) Baso % (Auto) Lymph # [place] # Eos # Baso # Seg Neutrophils % Monocytes % (Manual) Monocytes # (Manual) D-Dimer ABG pH ABG pO2 ABG HCO3 ABG O2 Saturation ABG Base Excess ABG Hemoglobin Oxyhemoglobin Sodium Potassium Chloride Carbon Dioxide BUN Creatinine Glucose POC Glucose 379 H 311 H 349 H Lactic Acid Calcium Magnesium AST ALT Lactate Dehydrogenase Total Creatine Kinase C-Reactive Protein Total Protein Albumin Free T4 Urine WBC (Auto) Urine Total Protein Digoxin Salicylates Acetaminophen 12/31/19 12/31/19 01/01/20 22:29 23:30 02:58 WBC RBC Hgb Hct MCV MCH MCHC RDW Plt Count Lymph % (Auto) [place] % (Auto) Eos % (Auto) Baso % (Auto) Lymph # [place] # Eos # Baso # Seg Neutrophils % Monocytes % (Manual) Monocytes # (Manual) D-Dimer ABG pH ABG pO2 ABG HCO3 ABG O2 Saturation ABG Base Excess ABG Hemoglobin Oxyhemoglobin Sodium Potassium Chloride Carbon Dioxide BUN Creatinine Glucose POC Glucose 256 H 266 H 248 H Lactic Acid Calcium Magnesium AST ALT Lactate Dehydrogenase Total Creatine Kinase C-Reactive Protein Total Protein Albumin Free T4 Urine WBC (Auto) Urine Total Protein Digoxin Salicylates Acetaminophen 01/01/20 01/01/20 01/01/20 04:19 06:56 10:52 WBC RBC Hgb Hct MCV MCH MCHC RDW Plt Count Lymph % (Auto) [place] % (Auto) Eos % (Auto) Baso % (Auto) Lymph # [place] # Eos # Baso # Seg Neutrophils % Monocytes % (Manual) Monocytes # (Manual) D-Dimer ABG pH ABG pO2 90.7 H ABG HCO3 29.1 H ABG O2 Saturation ABG Base Excess 3.8 H ABG Hemoglobin 8.1 L Oxyhemoglobin 94.5 L Sodium Potassium Chloride Carbon Dioxide BUN Creatinine Glucose POC Glucose 303 H 244 H Lactic Acid Calcium Magnesium AST ALT Lactate Dehydrogenase Total Creatine Kinase C-Reactive Protein Total Protein Albumin Free T4 Urine WBC (Auto) Urine Total Protein Digoxin Salicylates Acetaminophen 01/01/20 01/01/20 01/01/20 13:39 14:49 18:42 WBC RBC Hgb Hct MCV MCH MCHC RDW Plt Count Lymph % (Auto) [place] % (Auto) Eos % (Auto) Baso % (Auto) Lymph # [place] # Eos # Baso # Seg Neutrophils % Monocytes % (Manual) Monocytes # (Manual) D-Dimer ABG pH ABG pO2 ABG HCO3 ABG O2 Saturation ABG Base Excess ABG Hemoglobin Oxyhemoglobin Sodium 147 H Potassium Chloride 107.1 H Carbon Dioxide BUN 28 H Creatinine Glucose 207 H POC Glucose 263 H 188 H Lactic Acid Calcium Magnesium AST ALT Lactate Dehydrogenase Total Creatine Kinase C-Reactive Protein Total Protein Albumin Free T4 Urine WBC (Auto) Urine Total Protein Digoxin Salicylates Acetaminophen 01/02/20 01/02/20 01/02/20 02:22 03:58 05:00 WBC RBC 3.31 L Hgb 8.0 L Hct 26.9 L MCV 81 L MCH 24 L MCHC 30 L RDW 19.4 H Plt Count Lymph % (Auto) [place] % (Auto) 9.4 H Eos % (Auto) 11.2 H Baso % (Auto) Lymph # [place] # Eos # 0.8 H Baso # Seg Neutrophils % Monocytes % (Manual) Monocytes # (Manual) D-Dimer ABG pH ABG pO2 63.0 L ABG HCO3 31.6 H ABG O2 Saturation 91.8 L ABG Base Excess 5.5 H ABG Hemoglobin 8.6 L Oxyhemoglobin 89.6 L Sodium Potassium Chloride Carbon Dioxide BUN Creatinine Glucose POC Glucose 196 H Lactic Acid Calcium Magnesium AST ALT Lactate Dehydrogenase Total Creatine Kinase C-Reactive Protein Total Protein Albumin Free T4 Urine WBC (Auto) Urine Total Protein Digoxin Salicylates Acetaminophen 01/02/20 01/02/20 01/02/20 05:40 10:26 13:57 WBC RBC Hgb Hct MCV MCH MCHC RDW Plt Count Lymph % (Auto) [place] % (Auto) Eos % (Auto) Baso % (Auto) Lymph # [place] # Eos # Baso # Seg Neutrophils % Monocytes % (Manual) Monocytes # (Manual) D-Dimer ABG pH ABG pO2 ABG HCO3 ABG O2 Saturation ABG Base Excess ABG Hemoglobin Oxyhemoglobin Sodium Potassium Chloride Carbon Dioxide BUN Creatinine Glucose POC Glucose 189 H 157 H 178 H Lactic Acid Calcium Magnesium AST ALT Lactate Dehydrogenase Total Creatine Kinase C-Reactive Protein Total Protein Albumin Free T4 Urine WBC (Auto) Urine Total Protein Digoxin Salicylates Acetaminophen 01/02/20 01/03/20 01/03/20 21:27 03:12 05:26 WBC RBC Hgb Hct MCV MCH MCHC RDW Plt Count Lymph % (Auto) [place] % (Auto) Eos % (Auto) Baso % (Auto) Lymph # [place] # Eos # Baso # Seg Neutrophils % Monocytes % (Manual) Monocytes # (Manual) D-Dimer ABG pH 7.473 H ABG pO2 109.6 H ABG HCO3 30.4 H ABG O2 Saturation ABG Base Excess 6.2 H ABG Hemoglobin 9.9 L Oxyhemoglobin Sodium Potassium Chloride Carbon Dioxide BUN Creatinine Glucose POC Glucose 131 H 133 H Lactic Acid Calcium Magnesium AST ALT Lactate Dehydrogenase Total Creatine Kinase C-Reactive Protein Total Protein Albumin Free T4 Urine WBC (Auto) Urine Total Protein Digoxin Salicylates Acetaminophen 01/03/20 01/03/20 01/03/20 05:40 05:40 15:01 WBC RBC 3.45 L Hgb 8.3 L Hct 27.3 L MCV 79 L MCH 24 L MCHC 30 L RDW 19.3 H Plt Count Lymph % (Auto) [place] % (Auto) Eos % (Auto) Baso % (Auto) Lymph # [place] # Eos # Baso # Seg Neutrophils % Monocytes % (Manual) Monocytes # (Manual) D-Dimer ABG pH ABG pO2 ABG HCO3 ABG O2 Saturation ABG Base Excess ABG Hemoglobin Oxyhemoglobin Sodium 151 H Potassium Chloride 111.8 H Carbon Dioxide 31 H BUN 37 H Creatinine 1.8 H Glucose 187 H POC Glucose 164 H Lactic Acid Calcium Magnesium AST ALT Lactate Dehydrogenase Total Creatine Kinase C-Reactive Protein Total Protein Albumin Free T4 Urine WBC (Auto) Urine Total Protein Digoxin Salicylates Acetaminophen 01/03/20 01/03/20 01/04/20 18:15 22:45 02:11 WBC RBC Hgb Hct MCV MCH MCHC RDW Plt Count Lymph % (Auto) [place] % (Auto) Eos % (Auto) Baso % (Auto) Lymph # [place] # Eos # Baso # Seg Neutrophils % Monocytes % (Manual) Monocytes # (Manual) D-Dimer ABG pH ABG pO2 ABG HCO3 ABG O2 Saturation ABG Base Excess ABG Hemoglobin Oxyhemoglobin Sodium Potassium Chloride Carbon Dioxide BUN Creatinine Glucose POC Glucose 184 H 176 H 206 H Lactic Acid Calcium Magnesium AST ALT Lactate Dehydrogenase Total Creatine Kinase C-Reactive Protein Total Protein Albumin Free T4 Urine WBC (Auto) Urine Total Protein Digoxin Salicylates Acetaminophen 01/04/20 01/04/20 01/04/20 03:16 05:15 10:53 WBC RBC Hgb Hct MCV MCH MCHC RDW Plt Count Lymph % (Auto) [place] % (Auto) Eos % (Auto) Baso % (Auto) Lymph # [place] # Eos # Baso # Seg Neutrophils % Monocytes % (Manual) Monocytes # (Manual) D-Dimer ABG pH 7.282 L ABG pO2 73.2 L ABG HCO3 ABG O2 Saturation 94.5 L ABG Base Excess -6.4 L ABG Hemoglobin 10.9 L Oxyhemoglobin 92.1 L Sodium Potassium Chloride Carbon Dioxide BUN Creatinine Glucose POC Glucose 139 H 224 H Lactic Acid Calcium Magnesium AST ALT Lactate Dehydrogenase Total Creatine Kinase C-Reactive Protein Total Protein Albumin Free T4 Urine WBC (Auto) Urine Total Protein Digoxin Salicylates Acetaminophen 01/04/20 01/04/20 01/04/20 15:47 18:05 22:07 WBC RBC Hgb Hct MCV MCH MCHC RDW Plt Count Lymph % (Auto) [place] % (Auto) Eos % (Auto) Baso % (Auto) Lymph # [place] # Eos # Baso # Seg Neutrophils % Monocytes % (Manual) Monocytes # (Manual) D-Dimer ABG pH ABG pO2 ABG HCO3 ABG O2 Saturation ABG Base Excess ABG Hemoglobin Oxyhemoglobin Sodium Potassium Chloride Carbon Dioxide BUN Creatinine Glucose POC Glucose 135 H 117 H 108 H Lactic Acid Calcium Magnesium AST ALT Lactate Dehydrogenase Total Creatine Kinase C-Reactive Protein Total Protein Albumin Free T4 Urine WBC (Auto) Urine Total Protein Digoxin Salicylates Acetaminophen 01/04/20 01/04/20 01/05/20 Unknown Unknown 02:04 WBC RBC 3.46 L Hgb 8.2 L Hct 27.8 L MCV 80 L MCH 24 L MCHC 30 L RDW 19.7 H Plt Count Lymph % (Auto) [place] % (Auto) Eos % (Auto) Baso % (Auto) Lymph # [place] # Eos # Baso # Seg Neutrophils % Monocytes % (Manual) Monocytes # (Manual) D-Dimer ABG pH ABG pO2 ABG HCO3 ABG O2 Saturation ABG Base Excess ABG Hemoglobin Oxyhemoglobin Sodium 150 H Potassium Chloride 110 H Carbon Dioxide 32 H BUN 32 H Creatinine Glucose 309 H POC Glucose 140 H Lactic Acid Calcium Magnesium AST ALT Lactate Dehydrogenase Total Creatine Kinase C-Reactive Protein Total Protein Albumin Free T4 Urine WBC (Auto) Urine Total Protein Digoxin Salicylates Acetaminophen 01/05/20 01/05/20 01/05/20 03:31 03:36 03:36 WBC RBC 3.46 L Hgb 8.4 L Hct 26.9 L MCV 78 L MCH 24 L MCHC 31 L RDW 19.0 H Plt Count Lymph % (Auto) [place] % (Auto) Eos % (Auto) Baso % (Auto) Lymph # [place] # Eos # Baso # Seg Neutrophils % Monocytes % (Manual) Monocytes # (Manual) D-Dimer ABG pH 7.454 H ABG pO2 113.0 H ABG HCO3 30.5 H ABG O2 Saturation ABG Base Excess 6.0 H ABG Hemoglobin 8.5 L Oxyhemoglobin Sodium 150 H Potassium Chloride 110.3 H Carbon Dioxide BUN 30 H Creatinine Glucose 148 H POC Glucose Lactic Acid Calcium Magnesium AST ALT Lactate Dehydrogenase Total Creatine Kinase C-Reactive Protein Total Protein Albumin Free T4 Urine WBC (Auto) Urine Total Protein Digoxin Salicylates Acetaminophen 01/05/20 01/05/20 01/05/20 05:21 09:56 11:45 WBC RBC Hgb Hct MCV MCH MCHC RDW Plt Count Lymph % (Auto) [place] % (Auto) Eos % (Auto) Baso % (Auto) Lymph # [place] # Eos # Baso # Seg Neutrophils % Monocytes % (Manual) Monocytes # (Manual) D-Dimer ABG pH ABG pO2 ABG HCO3 ABG O2 Saturation ABG Base Excess ABG Hemoglobin Oxyhemoglobin Sodium Potassium Chloride Carbon Dioxide BUN Creatinine Glucose POC Glucose 142 H 129 H 174 H Lactic Acid Calcium Magnesium AST ALT Lactate Dehydrogenase Total Creatine Kinase C-Reactive Protein Total Protein Albumin Free T4 Urine WBC (Auto) Urine Total Protein Digoxin Salicylates Acetaminophen 01/05/20 01/05/20 01/05/20 13:30 14:00 17:41 WBC RBC Hgb Hct MCV MCH MCHC RDW Plt Count Lymph % (Auto) [place] % (Auto) Eos % (Auto) Baso % (Auto) Lymph # [place] # Eos # Baso # Seg Neutrophils % Monocytes % (Manual) Monocytes # (Manual) D-Dimer ABG pH ABG pO2 ABG HCO3 ABG O2 Saturation ABG Base Excess ABG Hemoglobin Oxyhemoglobin Sodium Potassium Chloride Carbon Dioxide BUN 26 H Creatinine 1.6 H Glucose 302 H POC Glucose 168 H 136 H Lactic Acid Calcium Magnesium AST ALT Lactate Dehydrogenase Total Creatine Kinase C-Reactive Protein Total Protein Albumin Free T4 Urine WBC (Auto) Urine Total Protein Digoxin Salicylates Acetaminophen 01/05/20 01/05/20 01/06/20 20:38 23:32 03:50 WBC RBC Hgb Hct MCV MCH MCHC RDW Plt Count Lymph % (Auto) [place] % (Auto) Eos % (Auto) Baso % (Auto) Lymph # [place] # Eos # Baso # Seg Neutrophils % Monocytes % (Manual) Monocytes # (Manual) D-Dimer ABG pH ABG pO2 76.2 L ABG HCO3 30.1 H ABG O2 Saturation ABG Base Excess 5.1 H ABG Hemoglobin 9.5 L Oxyhemoglobin 93.8 L Sodium Potassium Chloride Carbon Dioxide BUN Creatinine Glucose POC Glucose 124 H 163 H Lactic Acid Calcium Magnesium AST ALT Lactate Dehydrogenase Total Creatine Kinase C-Reactive Protein Total Protein Albumin Free T4 Urine WBC (Auto) Urine Total Protein Digoxin Salicylates Acetaminophen 01/06/20 01/06/20 01/06/20 04:09 04:58 04:58 WBC RBC Hgb 8.8 L Hct 28.7 L MCV 78 L MCH 24 L MCHC 31 L RDW 18.7 H Plt Count 522 H Lymph % (Auto) [place] % (Auto) Eos % (Auto) Baso % (Auto) Lymph # [place] # Eos # Baso # Seg Neutrophils % Monocytes % (Manual) Monocytes # (Manual) D-Dimer ABG pH ABG pO2 ABG HCO3 ABG O2 Saturation ABG Base Excess ABG Hemoglobin Oxyhemoglobin Sodium 150 H D Potassium Chloride 109.3 H Carbon Dioxide BUN 25 H Creatinine Glucose 55 L POC Glucose 65 L Lactic Acid Calcium Magnesium AST ALT Lactate Dehydrogenase Total Creatine Kinase C-Reactive Protein Total Protein Albumin Free T4 Urine WBC (Auto) Urine Total Protein Digoxin Salicylates Acetaminophen 01/06/20 01/06/20 01/06/20 05:01 14:10 17:49 WBC RBC Hgb Hct MCV MCH MCHC RDW Plt Count Lymph % (Auto) [place] % (Auto) Eos % (Auto) Baso % (Auto) Lymph # [place] # Eos # Baso # Seg Neutrophils % Monocytes % (Manual) Monocytes # (Manual) D-Dimer ABG pH ABG pO2 ABG HCO3 ABG O2 Saturation ABG Base Excess ABG Hemoglobin Oxyhemoglobin Sodium Potassium Chloride Carbon Dioxide BUN Creatinine Glucose POC Glucose 60 L 119 H 131 H Lactic Acid Calcium Magnesium AST ALT Lactate Dehydrogenase Total Creatine Kinase C-Reactive Protein Total Protein Albumin Free T4 Urine WBC (Auto) Urine Total Protein Digoxin Salicylates Acetaminophen 01/06/20 01/07/20 01/07/20 21:08 02:11 05:19 WBC RBC Hgb Hct MCV MCH MCHC RDW Plt Count Lymph % (Auto) [place] % (Auto) Eos % (Auto) Baso % (Auto) Lymph # [place] # Eos # Baso # Seg Neutrophils % Monocytes % (Manual) Monocytes # (Manual) D-Dimer ABG pH ABG pO2 ABG HCO3 ABG O2 Saturation ABG Base Excess ABG Hemoglobin Oxyhemoglobin Sodium Potassium Chloride Carbon Dioxide BUN Creatinine Glucose POC Glucose 136 H 209 H 182 H Lactic Acid Calcium Magnesium AST ALT Lactate Dehydrogenase Total Creatine Kinase C-Reactive Protein Total Protein Albumin Free T4 Urine WBC (Auto) Urine Total Protein Digoxin Salicylates Acetaminophen 01/07/20 01/07/20 01/07/20 11:40 11:52 13:49 WBC RBC Hgb Hct MCV MCH MCHC RDW Plt Count Lymph % (Auto) [place] % (Auto) Eos % (Auto) Baso % (Auto) Lymph # [place] # Eos # Baso # Seg Neutrophils % Monocytes % (Manual) Monocytes # (Manual) D-Dimer ABG pH ABG pO2 ABG HCO3 ABG O2 Saturation ABG Base Excess ABG Hemoglobin Oxyhemoglobin Sodium Potassium Chloride Carbon Dioxide BUN 21 H Creatinine Glucose 190 H POC Glucose 180 H 184 H Lactic Acid Calcium Magnesium AST ALT Lactate Dehydrogenase Total Creatine Kinase C-Reactive Protein Total Protein Albumin Free T4 Urine WBC (Auto) Urine Total Protein Digoxin Salicylates Acetaminophen 01/07/20 01/07/20 01/07/20 17:54 22:19 Unknown WBC RBC Hgb Hct MCV MCH MCHC RDW Plt Count Lymph % (Auto) [place] % (Auto) Eos % (Auto) Baso % (Auto) Lymph # [place] # Eos # Baso # Seg Neutrophils % Monocytes % (Manual) Monocytes # (Manual) D-Dimer ABG pH ABG pO2 ABG HCO3 28.9 H ABG O2 Saturation ABG Base Excess 4.0 H ABG Hemoglobin 11.0 L Oxyhemoglobin 94.2 L Sodium Potassium Chloride Carbon Dioxide BUN Creatinine Glucose POC Glucose 190 H 299 H Lactic Acid Calcium Magnesium AST ALT Lactate Dehydrogenase Total Creatine Kinase C-Reactive Protein Total Protein Albumin Free T4 Urine WBC (Auto) Urine Total Protein Digoxin Salicylates Acetaminophen 01/08/20 01/08/20 01/08/20 02:45 05:26 05:27 WBC RBC Hgb Hct MCV MCH MCHC RDW Plt Count Lymph % (Auto) [place] % (Auto) Eos % (Auto) Baso % (Auto) Lymph # [place] # Eos # Baso # Seg Neutrophils % Monocytes % (Manual) Monocytes # (Manual) D-Dimer ABG pH ABG pO2 67.8 L ABG HCO3 26.5 H ABG O2 Saturation 93.2 L ABG Base Excess ABG Hemoglobin 8.1 L Oxyhemoglobin 90.4 L Sodium Potassium Chloride Carbon Dioxide BUN Creatinine Glucose POC Glucose 245 H 346 H Lactic Acid Calcium Magnesium AST ALT Lactate Dehydrogenase Total Creatine Kinase C-Reactive Protein Total Protein Albumin Free T4 Urine WBC (Auto) Urine Total Protein Digoxin Salicylates Acetaminophen 01/08/20 01/08/20 01/08/20 08:03 08:03 10:33 WBC RBC 3.14 L Hgb 7.6 L Hct 24.3 L MCV 77 L MCH 24 L MCHC 31 L RDW 18.3 H Plt Count 509 H Lymph % (Auto) [place] % (Auto) Eos % (Auto) Baso % (Auto) Lymph # [place] # Eos # Baso # Seg Neutrophils % Monocytes % (Manual) Monocytes # (Manual) D-Dimer ABG pH ABG pO2 ABG HCO3 ABG O2 Saturation ABG Base Excess ABG Hemoglobin Oxyhemoglobin Sodium 132 L D Potassium Chloride 94.7 L Carbon Dioxide BUN 22 H Creatinine Glucose 284 H POC Glucose 275 H Lactic Acid Calcium Magnesium AST ALT Lactate Dehydrogenase Total Creatine Kinase C-Reactive Protein Total Protein Albumin Free T4 Urine WBC (Auto) Urine Total Protein Digoxin Salicylates Acetaminophen 01/08/20 01/08/20 01/08/20 13:34 17:24 21:49 WBC RBC Hgb Hct MCV MCH MCHC RDW Plt Count Lymph % (Auto) [place] % (Auto) Eos % (Auto) Baso % (Auto) Lymph # [place] # Eos # Baso # Seg Neutrophils % Monocytes % (Manual) Monocytes # (Manual) D-Dimer ABG pH ABG pO2 ABG HCO3 ABG O2 Saturation ABG Base Excess ABG Hemoglobin Oxyhemoglobin Sodium Potassium Chloride Carbon Dioxide BUN Creatinine Glucose POC Glucose 273 H 294 H 265 H Lactic Acid Calcium Magnesium AST ALT Lactate Dehydrogenase Total Creatine Kinase C-Reactive Protein Total Protein Albumin Free T4 Urine WBC (Auto) Urine Total Protein Digoxin Salicylates Acetaminophen 01/09/20 01/09/20 01/09/20 00:13 03:45 05:55 WBC RBC Hgb Hct MCV MCH MCHC RDW Plt Count Lymph % (Auto) [place] % (Auto) Eos % (Auto) Baso % (Auto) Lymph # [place] # Eos # Baso # Seg Neutrophils % Monocytes % (Manual) Monocytes # (Manual) D-Dimer ABG pH ABG pO2 ABG HCO3 ABG O2 Saturation ABG Base Excess ABG Hemoglobin Oxyhemoglobin Sodium Potassium Chloride Carbon Dioxide BUN Creatinine Glucose POC Glucose 251 H 346 H 300 H Lactic Acid Calcium Magnesium AST ALT Lactate Dehydrogenase Total Creatine Kinase C-Reactive Protein Total Protein Albumin Free T4 Urine WBC (Auto) Urine Total Protein Digoxin Salicylates Acetaminophen 01/09/20 01/09/20 01/09/20 08:15 09:31 12:04 WBC RBC Hgb Hct MCV MCH MCHC RDW Plt Count Lymph % (Auto) [place] % (Auto) Eos % (Auto) Baso % (Auto) Lymph # [place] # Eos # Baso # Seg Neutrophils % Monocytes % (Manual) Monocytes # (Manual) D-Dimer ABG pH ABG pO2 ABG HCO3 ABG O2 Saturation ABG Base Excess ABG Hemoglobin Oxyhemoglobin Sodium 134 L Potassium Chloride 97.6 L Carbon Dioxide BUN 25 H Creatinine Glucose 240 H POC Glucose 191 H 230 H Lactic Acid Calcium Magnesium AST ALT Lactate Dehydrogenase Total Creatine Kinase C-Reactive Protein Total Protein Albumin Free T4 Urine WBC (Auto) Urine Total Protein Digoxin Salicylates Acetaminophen 01/09/20 01/09/20 01/09/20 13:46 17:31 22:28 WBC RBC Hgb Hct MCV MCH MCHC RDW Plt Count Lymph % (Auto) [place] % (Auto) Eos % (Auto) Baso % (Auto) Lymph # [place] # Eos # Baso # Seg Neutrophils % Monocytes % (Manual) Monocytes # (Manual) D-Dimer ABG pH ABG pO2 ABG HCO3 ABG O2 Saturation ABG Base Excess ABG Hemoglobin Oxyhemoglobin Sodium Potassium Chloride Carbon Dioxide BUN Creatinine Glucose POC Glucose 211 H 260 H 223 H Lactic Acid Calcium Magnesium AST ALT Lactate Dehydrogenase Total Creatine Kinase C-Reactive Protein Total Protein Albumin Free T4 Urine WBC (Auto) Urine Total Protein Digoxin Salicylates Acetaminophen 01/10/20 01/10/20 01/10/20 02:16 04:20 05:55 WBC RBC Hgb Hct MCV MCH MCHC RDW Plt Count Lymph % (Auto) [place] % (Auto) Eos % (Auto) Baso % (Auto) Lymph # [place] # Eos # Baso # Seg Neutrophils % Monocytes % (Manual) Monocytes # (Manual) D-Dimer ABG pH ABG pO2 95.3 H ABG HCO3 27.8 H ABG O2 Saturation ABG Base Excess ABG Hemoglobin 8.3 L Oxyhemoglobin Sodium Potassium Chloride Carbon Dioxide BUN Creatinine Glucose POC Glucose 219 H 245 H Lactic Acid Calcium Magnesium AST ALT Lactate Dehydrogenase Total Creatine Kinase C-Reactive Protein Total Protein Albumin Free T4 Urine WBC (Auto) Urine Total Protein Digoxin Salicylates Acetaminophen 01/10/20 01/10/20 01/10/20 10:38 15:08 15:45 WBC RBC Hgb Hct MCV MCH MCHC RDW Plt Count Lymph % (Auto) [place] % (Auto) Eos % (Auto) Baso % (Auto) Lymph # [place] # Eos # Baso # Seg Neutrophils % Monocytes % (Manual) Monocytes # (Manual) D-Dimer ABG pH ABG pO2 ABG HCO3 ABG O2 Saturation ABG Base Excess ABG Hemoglobin Oxyhemoglobin Sodium Potassium Chloride Carbon Dioxide BUN Creatinine Glucose POC Glucose 268 H 246 H 238 H Lactic Acid Calcium Magnesium AST ALT Lactate Dehydrogenase Total Creatine Kinase C-Reactive Protein Total Protein Albumin Free T4 Urine WBC (Auto) Urine Total Protein Digoxin Salicylates Acetaminophen 01/10/20 01/10/20 01/10/20 18:00 21:09 22:48 WBC RBC Hgb Hct MCV MCH MCHC RDW Plt Count Lymph % (Auto) [place] % (Auto) Eos % (Auto) Baso % (Auto) Lymph # [place] # Eos # Baso # Seg Neutrophils % Monocytes % (Manual) Monocytes # (Manual) D-Dimer ABG pH ABG pO2 ABG HCO3 ABG O2 Saturation ABG Base Excess ABG Hemoglobin Oxyhemoglobin Sodium Potassium Chloride Carbon Dioxide BUN Creatinine Glucose POC Glucose 187 H 176 H 189 H Lactic Acid Calcium Magnesium AST ALT Lactate Dehydrogenase Total Creatine Kinase C-Reactive Protein Total Protein Albumin Free T4 Urine WBC (Auto) Urine Total Protein Digoxin Salicylates Acetaminophen 01/11/20 01/11/20 01/11/20 03:07 05:45 05:45 WBC RBC 3.15 L Hgb 7.7 L Hct 24.9 L MCV 79 L MCH 24 L MCHC 31 L RDW 18.7 H Plt Count 667 H Lymph % (Auto) [place] % (Auto) Eos % (Auto) Baso % (Auto) Lymph # [place] # Eos # Baso # Seg Neutrophils % Monocytes % (Manual) Monocytes # (Manual) D-Dimer ABG pH ABG pO2 ABG HCO3 ABG O2 Saturation ABG Base Excess ABG Hemoglobin Oxyhemoglobin Sodium 148 H D Potassium 5.1 H Chloride 111.9 H Carbon Dioxide BUN 26 H Creatinine Glucose 236 H POC Glucose 253 H Lactic Acid Calcium Magnesium AST 67 H ALT Lactate Dehydrogenase Total Creatine Kinase C-Reactive Protein Total Protein 5.9 L Albumin 2.8 L Free T4 Urine WBC (Auto) Urine Total Protein Digoxin Salicylates Acetaminophen 01/11/20 01/11/20 01/11/20 06:10 12:59 14:22 WBC RBC Hgb Hct MCV MCH MCHC RDW Plt Count Lymph % (Auto) [place] % (Auto) Eos % (Auto) Baso % (Auto) Lymph # [place] # Eos # Baso # Seg Neutrophils % Monocytes % (Manual) Monocytes # (Manual) D-Dimer ABG pH ABG pO2 ABG HCO3 ABG O2 Saturation ABG Base Excess ABG Hemoglobin Oxyhemoglobin Sodium Potassium Chloride Carbon Dioxide BUN Creatinine Glucose POC Glucose 261 H 234 H 220 H Lactic Acid Calcium Magnesium AST ALT Lactate Dehydrogenase Total Creatine Kinase C-Reactive Protein Total Protein Albumin Free T4 Urine WBC (Auto) Urine Total Protein Digoxin Salicylates Acetaminophen 01/11/20 01/11/20 01/12/20 17:18 21:20 00:45 WBC RBC Hgb Hct MCV MCH MCHC RDW Plt Count Lymph % (Auto) [place] % (Auto) Eos % (Auto) Baso % (Auto) Lymph # [place] # Eos # Baso # Seg Neutrophils % Monocytes % (Manual) Monocytes # (Manual) D-Dimer ABG pH ABG pO2 ABG HCO3 ABG O2 Saturation ABG Base Excess ABG Hemoglobin Oxyhemoglobin Sodium Potassium Chloride Carbon Dioxide BUN Creatinine Glucose POC Glucose 264 H 299 H 289 H Lactic Acid Calcium Magnesium AST ALT Lactate Dehydrogenase Total Creatine Kinase C-Reactive Protein Total Protein Albumin Free T4 Urine WBC (Auto) Urine Total Protein Digoxin Salicylates Acetaminophen 01/12/20 01/12/20 01/12/20 04:35 06:10 11:29 WBC RBC Hgb Hct MCV MCH MCHC RDW Plt Count Lymph % (Auto) [place] % (Auto) Eos % (Auto) Baso % (Auto) Lymph # [place] # Eos # Baso # Seg Neutrophils % Monocytes % (Manual) Monocytes # (Manual) D-Dimer ABG pH ABG pO2 ABG HCO3 ABG O2 Saturation ABG Base Excess ABG Hemoglobin Oxyhemoglobin Sodium Potassium Chloride Carbon Dioxide BUN Creatinine Glucose POC Glucose 187 H 194 H 213 H Lactic Acid Calcium Magnesium AST ALT Lactate Dehydrogenase Total Creatine Kinase C-Reactive Protein Total Protein Albumin Free T4 Urine WBC (Auto) Urine Total Protein Digoxin Salicylates Acetaminophen 01/12/20 01/12/20 01/12/20 14:40 18:50 21:34 WBC RBC Hgb Hct MCV MCH MCHC RDW Plt Count Lymph % (Auto) [place] % (Auto) Eos % (Auto) Baso % (Auto) Lymph # [place] # Eos # Baso # Seg Neutrophils % Monocytes % (Manual) Monocytes # (Manual) D-Dimer ABG pH ABG pO2 ABG HCO3 ABG O2 Saturation ABG Base Excess ABG Hemoglobin Oxyhemoglobin Sodium Potassium Chloride Carbon Dioxide BUN Creatinine Glucose POC Glucose 288 H 292 H 147 H Lactic Acid Calcium Magnesium AST ALT Lactate Dehydrogenase Total Creatine Kinase C-Reactive Protein Total Protein Albumin Free T4 Urine WBC (Auto) Urine Total Protein Digoxin Salicylates Acetaminophen 01/12/20 01/13/20 01/13/20 23:16 04:00 05:27 WBC RBC Hgb Hct MCV MCH MCHC RDW Plt Count Lymph % (Auto) [place] % (Auto) Eos % (Auto) Baso % (Auto) Lymph # [place] # Eos # Baso # Seg Neutrophils % Monocytes % (Manual) Monocytes # (Manual) D-Dimer ABG pH ABG pO2 ABG HCO3 ABG O2 Saturation ABG Base Excess ABG Hemoglobin Oxyhemoglobin Sodium 149 H Potassium Chloride 112.4 H Carbon Dioxide 32 H BUN 28 H Creatinine Glucose 174 H POC Glucose 122 H 143 H Lactic Acid Calcium Magnesium AST ALT Lactate Dehydrogenase Total Creatine Kinase C-Reactive Protein Total Protein Albumin Free T4 Urine WBC (Auto) Urine Total Protein Digoxin Salicylates Acetaminophen 01/13/20 01/13/20 01/13/20 10:24 13:34 15:10 WBC RBC Hgb Hct MCV MCH MCHC RDW Plt Count Lymph % (Auto) [place] % (Auto) Eos % (Auto) Baso % (Auto) Lymph # [place] # Eos # Baso # Seg Neutrophils % Monocytes % (Manual) Monocytes # (Manual) D-Dimer ABG pH 7.223 L ABG pO2 ABG HCO3 33.1 H ABG O2 Saturation 94.7 L ABG Base Excess 4.2 H ABG Hemoglobin 8.5 L Oxyhemoglobin 92.1 L Sodium Potassium Chloride Carbon Dioxide BUN Creatinine Glucose POC Glucose 172 H 151 H Lactic Acid Calcium Magnesium AST ALT Lactate Dehydrogenase Total Creatine Kinase C-Reactive Protein Total Protein Albumin Free T4 Urine WBC (Auto) Urine Total Protein Digoxin Salicylates Acetaminophen 01/13/20 01/13/20 01/13/20 17:59 20:37 22:17 WBC RBC Hgb Hct MCV MCH MCHC RDW Plt Count Lymph % (Auto) [place] % (Auto) Eos % (Auto) Baso % (Auto) Lymph # [place] # Eos # Baso # Seg Neutrophils % Monocytes % (Manual) Monocytes # (Manual) D-Dimer ABG pH ABG pO2 ABG HCO3 ABG O2 Saturation ABG Base Excess ABG Hemoglobin Oxyhemoglobin Sodium Potassium Chloride Carbon Dioxide BUN Creatinine Glucose POC Glucose 114 H 152 H Lactic Acid Calcium Magnesium AST ALT Lactate Dehydrogenase Total Creatine Kinase C-Reactive Protein Total Protein Albumin Free T4 0.63 L Urine WBC (Auto) Urine Total Protein Digoxin Salicylates Acetaminophen 01/13/20 01/14/20 01/14/20 Unknown 02:10 05:20 WBC RBC 3.39 L Hgb 8.1 L Hct 28.4 L MCV MCH 24 L MCHC 29 L RDW 19.9 H Plt Count 713 H Lymph % (Auto) [place] % (Auto) 12.7 H Eos % (Auto) Baso % (Auto) 1.9 H Lymph # [place] # 1.3 H Eos # Baso # 0.2 H Seg Neutrophils % Monocytes % (Manual) Monocytes # (Manual) D-Dimer ABG pH ABG pO2 ABG HCO3 ABG O2 Saturation ABG Base Excess ABG Hemoglobin Oxyhemoglobin Sodium Potassium Chloride Carbon Dioxide BUN Creatinine Glucose POC Glucose 151 H 157 H Lactic Acid Calcium Magnesium AST ALT Lactate Dehydrogenase Total Creatine Kinase C-Reactive Protein Total Protein Albumin Free T4 Urine WBC (Auto) Urine Total Protein Digoxin Salicylates Acetaminophen Allied health notes reviewed: nursing
[2020-01-14] MEDS: POLYETHYLENE GLYCOL 3350 17 GM POWDER PO SCH (21:42)
[2020-01-15] MEDS: INSULIN LISPRO 100 UNIT/ML SUB-Q SCH ×6 (02:24→22:00)
[2020-01-15] MEDS: fentaNYL DRIP Premix 2,000 MCG/100 ML BAG IV SCH ×3 (03:06→21:15)
[2020-01-15] MEDS: LEVOTHYROXINE 88 MCG TAB PO SCH (06:10)
[2020-01-15] MEDS: IPRATROPIUM/ALBUTEROL SULFATE 3 ML AMPUL.NEB IH SCH ×3 (07:16→20:38)
[2020-01-15] MEDS: FAMOTIDINE 20 MG TAB PO SCH ×2 (09:14→21:36)
[2020-01-15] MEDS: HEPARIN 5,000 UNIT/1 ML VIAL SUB-Q SCH ×2 (09:14→21:39)
[2020-01-15] MEDS: FOLIC ACID 1 MG TAB PO SCH (09:14)
[2020-01-15] MEDS: DOCUSATE SODIUM 100 MG/10 ML ORAL LIQD PO SCH ×2 (09:15→21:36)
[2020-01-15] MEDS: ASPIRIN 81 MG TAB CHEW PO SCH (10:00)
--- NOTE | 2020-01-15 10:19 | Progress Note ---
Assessment and Plan Assessment and plan: /Septic Shock /Sinus bradycardia /HypERnatremia / Acute hypoxic respiratory failure Likely from bilateral pneumonia and diastolic heart failure Patient intubated, placed on ventilatory support. critical care team consulted in ED. Patient is extubated, continue nebulizer breathing treatment and as needed biPAP We will also do a swallow eval / Sepsis with shock cont IV antibiotic therapy, IV fluid resuscitation therapy, monitor urine output every shift, maintain mean arterial blood pressure greater than or equal to 65, s/p IV pressor support. / Suspected 2019-nCoV infection -ruled out with 2 negative test / Diastolic CHF Preserved EF based on prior echocardiogram Monitor weight strict I's/O, daily weight, monitor urine output every shift, submental oxygen, blood pressure control. /JAGDEEP, due to vasomotor nephropathy, present on admission -Creatinine improving, -Likely due to severe sepsis and hypotension /hypernatremia, -due to dehydration and sepsis -change fluid to D5W - monitor BMP /Hypokalemia, replete / Diabetes type II Initiate tube feeding diet Sliding scale insulin, Accu-Chek, hypoglycemia protocol. / Hypothyroidism Synthroid therapy, supportive care. / Bilateral pneumonia Pneumonia protocol: IV antibiotic therapy with rocephin for total 7 days, pulse oximetry, /Cervical lymphadenopathy -Reactive versus infectious process versus malignancy -Need repeat scanning and further staging when medically more stable -Pulmonology and ID following /Ileus: Hold tube feeds / HTN (hypertension) -hold BP meds as patient is hypotensive Monitor blood pressure every shift, continue medical management. /History of obstructive sleep apnea -Patient currently on mechanical ventilation /Acute metabolic encephalopathy Secondary to hyponatremia. /Urinary retention, suspected in the ER -Patient having good urine output now, will hold any CT scan -Continue IV fluid / DVT prophylaxis SCD to bilateral lower extremities while in bed, prophylactic heparin 12/19/19: Negative for COVID-19, continue pressor and wean off as tolerated, continue IV antibiotic and follow cultures. 12/19: Weaned off from pressor, sodium 156>157>153 today, creatinine 1.4>1.2>1.0. Continue IV fluid. Wean off from vent as tolerated. Follow ID recommendation 12/20: Extubated today, continue to monitor in the ICU overnight if clinically stable with transfer out to [facility]/telemetry tomorrow a.m.. Sodium 149 today, continue IV fluid and monitor BMP. Swallow eval, PT OT eval. 2nd text for covid is negative 12/21: transfer to [facility], start on gentle hydration. mechanical soft diet 12/22: placed back on bipap, Na 163 - start on D5W, monitor bmp 12/23: spoke to sister, updated [id number], also discussed Pulmonary, will likely need LTAC. Obtain Nephrology due to persistent Hypernatremia. Will start on free water and continue to monitor. Remains of restriants for safety due to intermittent confusion. 12/24: Still with intermittent encephalopathy. Requiring restraints. Hyperna tremia still persist continue hypotonic solution. Nephrology consulted. Free water started this morning will increase dose. Replace potassium as hypokalemia still persist 12/26/19: Clinically improving, BIPAP now PRN AND HS, Na improving, continue renal follow up. I have called [facility] in case they would like to transfer the patient tested previously requested. 12/26: Hypernatermia still persist, had pulled out NGT yesterday, Continue free water, Continue Bipap, Mcdermott states he is not yet stable for transfer. Although from our critical care team this patient has been cleared for to be able to transfer. 12/27: Patient reintubated due to hypoxia. Continue current management as outlined by riding coach. Sodium is improving. Continue current management monitor ABG and intermittent chest x-ray. [facility] group updated. Patient sister also updated. 12/28: Sepsis persist. Antibiotics adjusted.-start linezolid 600 mg IV q 12 hour. Will adjust insulin for better management of blood glucose. 12/29: Shock still persist Levophed adjusted upward. [place] advised patient not safe for travel at this time. Continue ventilatory support continue full support antibiotics adjusted by ID. Follow cultures 12/30: Still on the vent and pressors , Isolation secondary MRSA In sputum. 12/31: Continue current management, will need intermittent chest xray, adjust insulin For better blood glucose control. Check labs in am 01/01: KUB reviewed shows distended bowel with no no specific obstruction noted. We will hold tube feeds at this time place NG tube to low intermittent suction. Repeat chest x-ray in a.m. Hyponatremia is better kidney function appears to be improving continue to monitor. 01/02: Continue feeding tube to low intermittent suction over 500 residual came out in the last 16+ hours. Repeat blood culture per ID. Continue antibiotics. We will obtain the CT abdomen and pelvis without contrast as renal function is mildly increased today. Prognosis is guarded repeat imaging concerning for colon distention. Will defer to critical care if the fecal management system should be placed. 01/03: CT A/P and chest. IMPRESSION: 1. Predominantly dependent bilateral consolidative and groundglass changes throughout both lungs have worsened since the prior. There is a new small left pleural effusion as well. These findings could be seen in the setting of pulmonary edema with associated superimposed infectious process. There is no cardiomegaly. 2. Left cervical/supraclavicular adenopathy appears slightly increased. This is nonspecific. However, there are shoddy nodes throughout the retroperitoneum and within the pelvis, and the spleen is mildly enlarged. Taken together, these findings are concerning for lymphoproliferative process such as lymphoma. - Ultrasound guided Biopsy, also send peripheral smear. US guided biopsy ordered - add a second pressors 01/04: Awaiting biopsy, continue supportive care, Sodium stable and improving. Patient undergoing bronchoscopy today. 01/05: Continue supportive care, monitor sodium level, wean pressors as tolerated, Radiology unable to perform biopsy of Lymphnode while patient is on the vent per Radiology team. Mcdermott updated of clinical status 01/06: Remains on pressors. Continues with nonoliguric kidney injury. We will give a bolus of fluid as patient is still dry. Hypoglycemia is improving will decrease to D5 from D10 at the same rate. Continue to monitor await cultures and cytology from bronchoscopy. Likely will need trach and PEG. 01/07: Discontinue D5. Patient did receive a bolus of fluid yesterday. Bowel movement noted. Monitor blood sugar close, continue to wean pressors, folllow result from bronchoscopy. start considering Trach and PEG 01/08: Noted hypotensive again this morning requiring reinitiation of pressors. Also was bradycardic received atropine. Keep atropine at bedside cardiology evaluated continue pulmonary supportive care while on ventilator. Renal function is improving. Will give additional bolus of fluid. 01/09: Consult placed to surgery for trach and PEG as patient has failed multiple weaning trials.. Still awaiting biopsy for the adenopathy noted. Again radiology would want the patient off the vent prior to doing biopsy. 01/11/2020. Patient still requiring mechanical ventilation with AC mode rate 14, tidal volume 450, FiO2 45% and PEEP of 8. Patient requiring fentanyl for sedation, wean as tolerated. Patient currently on pressors of dopamine and vasopressin. And currently on stress dose hydrocortisone 100 mg IV every 8 hours. Continue atropine at the bedside for emergent treatment of bradycardia. Cardiology to decide on possible device therapies. 01/12/2020. Patient still requiring mechanical ventilation with AC mode rate of 14, tidal volume 450, FiO2 50% and PEEP of 8. Continue to wean pressors to maintain MEP greater than 65. Atropine at the bedside for emergent treatment of bradycardia. Continue stress dose hydrocortisone. 01/13/2020. Patient still requiring mechanical ventilation on PSV mode FiO2 50% PEEP 8 and pressure support 15. Continue CPAP trials as tolerated. Continue to wean pressors to maintain MAP greater than 65. Atropine as needed for bradycardia. Avoid AV estella blocking agents. 01/14/2020. Patient currently on AC mode ventilation with rate of 14, tidal volume 450, FiO2 35% and PEEP of 8. Continue CPAP trials per protocols. Continue dopamine/atropine as needed for bradycardia. Consider pacemaker per cardiology. Continue free water every 4 hours for hypernatremia. Continue to monitor off antibiotics. Surgery to perform tracheostomy and PEG placement. 01/15/2020. Patient currently with AC mode ventilation rate 14, tidal volume 450, PEEP of 8 and FiO2 40%. Continue CPAP trials per protocols. Continue dopamine/atropine as needed for bradycardia. Consider pacemaker per cardiology. The high probability of a clinically significant, sudden or life threatening deterioration of the [renal, respiratory and cardiac] system(s) required my full and direct attention, intervention and personal management. The aggregate critical care time was [31] minutes. This time is in addition to time spent per forming reported procedures but includes the following: [x] Data Review and interpretation [x] Patient assessment and monitoring of vital signs [x] Documentation [x] Medication orders and management History Interval history: No new issues overnight. Hospitalist Physical - Constitutional Vitals: Temp Pulse Resp BP Pulse Ox 97.7 F 73 12 151/74 99 01/15/20 08:00 01/15/20 09:00 01/15/20 09:00 01/15/20 09:00 01/15/20 09:00 General appearance: Present: severe distress - EENT Eyes: Present: PERRL, EOM intact ENT: hearing intact, clear oral mucosa, dentition normal - Neck Neck: Present: supple, normal ROM - Respiratory Respiratory effort: normal Respiratory: bilateral: CTA - Cardiovascular Rhythm: regular Heart Sounds: Present: S1 & S2. Absent: gallop, rub - Extremities Extremities: no ischemia, No edema, Full ROM - Abdominal General gastrointestinal: soft, non-tender, non-distended, normal bowel sounds - Integumentary Integumentary: Present: clear, warm, dry - Neurologic Neurologic: CNII-XII intact, moves all extremities HEART Score - HEART Score Troponin: Troponin T 0.011 ng/mL (0.00-0.029) 12/18/19 14:45 Results - Labs CBC & Chem 7: 01/13/20 Unknown 01/13/20 04:00 Labs: Laboratory Last Values WBC 10.6 K/mm3 (4.5-11.0) 01/13/20 Unknown RBC 3.39 M/mm3 (3.65-5.03) L 01/13/20 Unknown Hgb 8.1 gm/dl (11.8-15.2) L 01/13/20 Unknown Hct 28.4 % (35.5-45.6) L 01/13/20 Unknown MCV 84 fl (84-94) 01/13/20 Unknown MCH 24 pg (28-32) L 01/13/20 Unknown MCHC 29 % (32-34) L 01/13/20 Unknown RDW 19.9 % (13.2-15.2) H 01/13/20 Unknown Plt Count 713 K/mm3 (140-440) H 01/13/20 Unknown Lymph % (Auto) 20.2 % (13.4-35.0) 01/13/20 Unknown [place] % (Auto) 12.7 % (0.0-7.3) H 01/13/20 Unknown Eos % (Auto) 3.9 % (0.0-4.3) 01/13/20 Unknown Baso % (Auto) 1.9 % (0.0-1.8) H 01/13/20 Unknown Lymph # 2.1 K/mm3 (1.2-5.4) 01/13/20 Unknown [place]borne # 1.3 K/mm3 (0.0-0.8) H 01/13/20 Unknown Eos # 0.4 K/mm3 (0.0-0.4) 01/13/20 Unknown Baso # 0.2 K/mm3 (0.0-0.1) H 01/13/20 Unknown Add Manual Diff Complete 12/24/19 04:53 Total Counted 100 12/24/19 04:53 Seg Neutrophils % 61.3 % (40.0-70.0) 01/13/20 Unknown Seg Neuts % (Manual) 60.0 % (40.0-70.0) 12/24/19 04:53 Band Neutrophils % 0 % 12/24/19 04:53 Lymphocytes % (Manual) 20.0 % (13.4-35.0) 12/24/19 04:53 Reactive Lymphs % (Man) 0 % 12/24/19 04:53 Monocytes % (Manual) 15.0 % (0.0-7.3) H 12/24/19 04:53 Eosinophils % (Manual) 4.0 % (0.0-4.3) 12/24/19 04:53 Basophils % (Manual) 0 % (0.0-1.8) 12/24/19 04:53 Metamyelocytes % 1.0 % 12/24/19 04:53 Myelocytes % 0 % 12/24/19 04:53 Promyelocytes % 0 % 12/24/19 04:53 Blast Cells % 0 % 12/24/19 04:53 Nucleated RBC % Not Reportable 12/24/19 04:53 Seg Neutrophils # 6.5 K/mm3 (1.8-7.7) 01/13/20 Unknown Seg Neutrophils # Man 3.5 K/mm3 (1.8-7.7) 12/24/19 04:53 Band Neutrophils # 0.0 K/mm3 12/24/19 04:53 Lymphocytes # (Manual) 1.2 K/mm3 (1.2-5.4) 12/24/19 04:53 Abs React Lymphs (Man) 0.0 K/mm3 12/24/19 04:53 Monocytes # (Manual) 0.9 K/mm3 (0.0-0.8) H 12/24/19 04:53 Eosinophils # (Manual) 0.2 K/mm3 (0.0-0.4) 12/24/19 04:53 Basophils # (Manual) 0.0 K/mm3 (0.0-0.1) 12/24/19 04:53 Metamyelocytes # 0.1 K/mm3 12/24/19 04:53 Myelocytes # 0.0 K/mm3 12/24/19 04:53 Promyelocytes # 0.0 K/mm3 12/24/19 04:53 Blast Cells # 0.0 K/mm3 12/24/19 04:53 WBC Morphology Not Reportable 12/24/19 04:53 Hypersegmented Neuts Not Reportable 12/24/19 04:53 Hyposegmented Neuts Not Reportable 12/24/19 04:53 Hypogranular Neuts Not Reportable 12/24/19 04:53 Smudge Cells Not Reportable 12/24/19 04:53 Toxic Granulation Not Reportable 12/24/19 04:53 Toxic Vacuolation Not Reportable 12/24/19 04:53 Dohle Bodies Not Reportable 12/24/19 04:53 Pelger-Huet Anomaly Not Reportable 12/24/19 04:53 Mervin Rods Not Reportable 12/24/19 04:53 Platelet Estimate Consistent w auto 12/24/19 04:53 Clumped Platelets Not Reportable 12/24/19 04:53 Plt Clumps, EDTA Not Reportable 12/24/19 04:53 Large Platelets Not Reportable 12/24/19 04:53 Giant Platelets Not Reportable 12/24/19 04:53 Platelet Satelliting Not Reportable 12/24/19 04:53 Plt Morphology Comment Not Reportable 12/24/19 04:53 RBC Morphology Not Reportable 12/24/19 04:53 Dimorphic RBCs Not Reportable 12/24/19 04:53 Polychromasia Rare 12/24/19 04:53 Hypochromasia 1+ 12/24/19 04:53 Poikilocytosis Not Reportable 12/24/19 04:53 Anisocytosis 1+ 12/24/19 04:53 Microcytosis Few 12/24/19 04:53 Macrocytosis Not Reportable 12/24/19 04:53 Spherocytes Not Reportable 12/24/19 04:53 Pappenheimer Bodies Not Reportable 12/24/19 04:53 Sickle Cells Not Reportable 12/24/19 04:53 Target Cells Not Reportable 12/24/19 04:53 Tear Drop Cells Not Reportable 12/24/19 04:53 Ovalocytes Few 12/24/19 04:53 Helmet Cells Not Reportable 12/24/19 04:53 [place] Bodies Not Reportable 12/24/19 04:53 Harman Rings Not Reportable 12/24/19 04:53 [place] Cells Not Reportable 12/24/19 04:53 Bite Cells Not Reportable 12/24/19 04:53 Crenated Cell Not Reportable 12/24/19 04:53 Elliptocytes Not Reportable 12/24/19 04:53 Acanthocytes (Spur) Not Reportable 12/24/19 04:53 Rouleaux Not Reportable 12/24/19 04:53 Hemoglobin C Crystals Not Reportable 12/24/19 04:53 Schistocytes Not Reportable 12/24/19 04:53 Malaria parasites Not Reportable 12/24/19 04:53 Gianni Bodies Not Reportable 12/24/19 04:53 Hem Pathologist Commnt No 12/24/19 04:53 PT 14.0 Sec. (12.2-14.9) 12/18/19 14:45 INR 1.10 (0.87-1.13) 12/18/19 14:45 APTT 29.4 Sec. (24.2-36.6) 12/18/19 14:45 D-Dimer 534.45 ng/mlDDU (0-234) H 12/18/19 14:45 ABG pH 7.223 pH Units (7.350-7.450) L 01/13/20 15:10 ABG pCO2 82.3 mm Hg 01/13/20 15:10 ABG pO2 81.4 mm Hg (80.0-90.0) 01/13/20 15:10 ABG HCO3 33.1 mmol/L (20.0-26.0) H 01/13/20 15:10 ABG O2 Saturation 94.7 % (95.0-99.0) L 01/13/20 15:10 ABG O2 Content 11.2 (0.0-44) 01/13/20 15:10 ABG Base Excess 4.2 mmol/L (-2.0-3.0) H 01/13/20 15:10 ABG Hemoglobin 8.5 gm/dl (14.0-18.0) L 01/13/20 15:10 ABG Carboxyhemoglobin 2.0 % (0.0-5.0) 01/13/20 15:10 ABG Methemoglobin 0.7 % (0.0-1.5) 01/13/20 15:10 Oxyhemoglobin 92.1 % (95.0-99.0) L 01/13/20 15:10 FiO2 50 % 01/13/20 15:10 Sodium 149 mmol/L (137-145) H 01/13/20 04:00 Potassium 4.4 mmol/L (3.6-5.0) 01/13/20 04:00 Chloride 112.4 mmol/L (98-107) H 01/13/20 04:00 Carbon Dioxide 32 mmol/L (22-30) H 01/13/20 04:00 Anion Gap 9 mmol/L 01/13/20 04:00 BUN 28 mg/dL (9-20) H 01/13/20 04:00 Creatinine 0.8 mg/dL (0.8-1.5) 01/13/20 04:00 Estimated GFR > 60 ml/min 01/13/20 04:00 BUN/Creatinine Ratio 35 % 01/13/20 04:00 Glucose 174 mg/dL (75-100) H 01/13/20 04:00 POC Glucose 127 (70-105) H 01/15/20 05:28 Lactic Acid 1.70 mmol/L (0.7-2.0) 12/30/19 05:06 Calcium 8.4 mg/dL (8.4-10.2) 01/13/20 04:00 Phosphorus 3.70 mg/dL (2.5-4.5) 12/27/19 03:48 Magnesium 2.60 mg/dL (1.7-2.3) H 12/30/19 05:06 Ferritin 83.4 ng/mL (13.0-400.0) 12/18/19 14:45 Total Bilirubin 0.20 mg/dL (0.1-1.2) 01/11/20 05:45 AST 67 units/L (5-40) H 01/11/20 05:45 ALT 45 units/L (7-56) 01/11/20 05:45 Alkaline Phosphatase 111 units/L (35-129) 01/11/20 05:45 Ammonia 39.0 umol/L (25-60) 12/18/19 14:45 Lactate Dehydrogenase 235 units/L (91-180) H 12/18/19 14:45 Lactate Dehydrogenase 236 units/L (91-180) H 12/18/19 14:45 Total Creatine Kinase 40 units/L (55-170) L 12/18/19 14:45 Troponin T 0.011 ng/mL (0.00-0.029) 12/18/19 14:45 C-Reactive Protein 8.40 mg/dL (0.00-1.30) H 12/18/19 14:45 C-Reactive Protein 8.50 mg/dL (0.00-1.30) H 12/18/19 14:45 Total Protein 5.9 g/dL (6.3-8.2) L 01/11/20 05:45 Albumin 2.8 g/dL (3.9-5) L 01/11/20 05:45 Albumin/Globulin Ratio 0.9 % 01/11/20 05:45 Procalcitonin 0.22 ng/mL (<0.15) 12/18/19 14:45 TSH 1.460 mlU/mL (0.270-4.200) 01/13/20 20:37 Free T4 0.63 ng/dL (0.76-1.46) L 01/13/20 20:37 Urine Color Yellow (Yellow) 12/19/19 16:50 Urine Turbidity Clear (Clear) 12/19/19 16:50 Urine pH 5.0 (5.0-7.0) 12/19/19 16:50 Ur Specific [place] 1.010 (1.003-1.030) 12/19/19 16:50 Urine Protein <15 mg/dl mg/dL (Negative) 12/19/19 16:50 Urine Glucose (UA) 150 mg/dL (Negative) 12/19/19 16:50 Urine Ketones Neg mg/dL (Negative) 12/19/19 16:50 Urine Blood Neg (Negative) 12/19/19 16:50 Urine Nitrite Neg (Negative) 12/19/19 16:50 Urine Bilirubin Neg (Negative) 12/19/19 16:50 Urine Urobilinogen < 2.0 mg/dL (<2.0) 12/19/19 16:50 Ur Leukocyte Esterase Tr (Negative) 12/19/19 16:50 Urine WBC (Auto) 7.0 /HPF (0.0-6.0) H 12/19/19 16:50 Urine RBC (Auto) 4.0 /HPF (0.0-6.0) 12/19/19 16:50 U Epithel Cells (Auto) 1.0 /HPF (0-13.0) 12/19/19 16:50 Urine Bacteria (Auto) 1+ /HPF (Negative) 12/19/19 16:50 Urine Mucus Few /HPF 12/19/19 16:50 Urine Osmolality 140 Mosm/kg 12/25/19 16:45 Urine Creatinine < 4.2 mg/dL (0.1-20.0) 12/25/19 16:45 Urine Sodium 10 mmol/L 12/25/19 16:45 Urine Total Protein < 4 mg/dL (5-11.8) L 12/25/19 16:45 Digoxin 0.3 ng/mL (0.9-2.0) L 12/18/19 14:45 Salicylates < 0.3 mg/dL (2.8-20.0) L 12/18/19 14:45 Acetaminophen < 5.0 ug/mL (10.0-30.0) L 12/18/19 14:45 Plasma/Serum Alcohol < 0.01 % (0-0.07) 12/18/19 14:45 Coronavirus (PCR) Negative (Negative) 12/21/19 14:45 AFB Identification 01/05/20 09:05 Fungal Id Prelim 01/05/20 09:05 Blood Type A POSITIVE 12/18/19 14:45 Antibody Screen Negative 12/18/19 14:45 - Diagnostic Impressions Diagnostic Impressions: Echocardiogram 12/28/19 14:07 Transthoracic Echocardiogram Indication: SOB BP: 95/51 HR: 99 Conclusions *The left ventricular chamber size is mildly dilated. *There is no left ventricular hypertrophy. *Global left ventricular systolic function is mildly decreased. *The estimated ejection fraction is 45-50%. *Abnormal left ventricular diastolic filling is observed, consistent with impaired relaxation. *The right ventricular global systolic function is mildly reduced. *The right ventricular systolic pressure is calculated at 53 mmHg. Findings Left Ventricle: The left ventricular chamber size is mildly dilated. There is no left ventricular hypertrophy. Global left ventricular systolic function is mildly decreased. The estimated ejection fraction is 45-50%. Abnormal left ventricular diastolic filling is observed, consistent with impaired relaxation. Left Atrium: The left atrial chamber size is normal. Right Ventricle: The right ventricular cavity size is normal. The right ventricular global systolic function is mildly reduced. Right Atrium: The right atrial cavity size is normal. Aortic Valve: The aortic valve leaflets are mildly thickened. There is no evidence of aortic regurgitation. Mitral Valve: The mitral valve leaflets are mildly thickened. There is no evidence of mitral regurgitation. Tricuspid Valve: The tricuspid valve leaflets are normal. There is mild tricuspid regurgitation. The right ventricular systolic pressure is calculated at 53 mmHg. Pulmonic Valve: The pulmonic valve appears normal. There is trace pulmonic regurgitation. Pericardium: There is no pericardial effusion. Aorta: The aorta appears normal. Venous: The inferior vena cava is dilated. Measurements Chambers 2D Name Value Normal Range IVSd (2D) 1.08 cm (0.6 - 1.1) LVPWd (2D) 1 cm (0.6 - 1.1) LVIDd (2D) 4.67 cm (3.7 - 5.6) LVIDs (2D) 3.89 cm (2 - 3.8) LV FS (2D) 16.76 % - EF Teichholz (2D) 35.14 % - Ao root diameter (2D) 2.86 cm (2 - 3.7) Volumes/Mass Name Value Normal Range LA ESV SP 4CH (A/L) 31.8 ml - LA ESV SP 2CH (A/L) 27.37 ml - LA ESV BP (A/L) 33.43 ml - LA ESV BP (A/L) index 14.11 ml/m2 - LA ESV SP 4CH (MOD) 26.83 ml - LA ESV SP 2CH (MOD) 29.59 ml - LA ESV BP (MOD) 30.47 ml - LA ESV BP (MOD) index 12.86 ml/m2 - Diastolic/Systolic Function Name Value Normal Range MV E-wave Vmax 0.39 m/sec - MV deceleration time 115.69 msec - MV A-wave Vmax 0.63 m/sec - MV E:A ratio 0.62 ratio - Aortic Valve Name Value Normal Range AV Vmax 1.14 m/sec - AV VTI 20.1 cm - AV peak gradient 5.17 mmHg - AV mean gradient 3.89 mmHg - LVOT diameter 2.02 cm - LVOT Vmax 0.99 m/sec - LVOT VTI 16.45 cm - LVOT peak gradient 3.95 mmHg - LVOT mean gradient 2.45 mmHg - SV LVOT 52.45 ml - RALPH (continuity Vmax) 2.78 cm2 - RALPH (continuity VTI) 2.61 cm2 - Tricuspid Valve Name Value Normal Range TR Vmax 3.36 m/sec - TR peak gradient 45 mmHg - RAP 8 mmHg - RVSP 53 mmHg - IVC diameter 2.33 cm (1.2 - 2.3) Pulmonic Valve/Qp:Qs Name Value Normal Range PV Vmax 0.89 m/sec - PV peak gradient 3.16 mmHg - SC end-diastolic Vmax 1.42 m/sec - PV acceleration time 79.92 msec - Sykes/IV: Voiding Method Condom Catheter IV Catheter Type [Right Upper PICC Line arm] IV Catheter Type [Right Leg] Intra-osseous IV Catheter Type [Right Wrist] Peripheral IV IV Catheter Type [Right Hand] INT / Saline Lock IV Catheter Type [Left Hand] INT / Saline Lock IV Catheter Type [Left Forearm INT / Saline Lock ] IV Catheter Type [Left Triple Lumen Cath Internal Jugular] Active Medications - Current Medications Current Medications: Generic Name Dose Route Start Last Admin Trade Name Freq PRN Reason Stop Dose Admin Acetaminophen 650 mg 12/29/19 09:21 01/03/20 18:31 Tylenol PO 650 mg Q4H PRN Administration Non Cardiac Pain or Temp>100.5 Albuterol/Ipratropium 1 ampul 12/18/19 14:00 01/15/20 07:16 Duoneb *Not For Prn Use* IH 1 ampul TIDRT SHANEL Administration Lipase/Protease/Amylase 1 each 12/19/19 08:29 Erendira Cabrera 10,500 Unit FEEDTUBE PRN PRN For Clogged Feeding Tube Aspirin 81 mg 12/19/19 10:00 01/14/20 10:00 Baby Aspirin PO 81 mg DAILY SHANEL Administration Atropine Sulfate 1 mg 01/09/20 13:50 01/10/20 18:00 Atropine 0.1% (Cardiac) IV 1 mg PRN PRN Administration Bradycardia Bisacodyl 10 mg 01/02/20 15:48 01/02/20 18:25 Dulcolax SC 10 mg QDAY PRN Administration Constipation Docusate Sodium 100 mg 01/01/20 22:00 01/15/20 09:15 Colace PO Not Given BID SHANEL Famotidine 20 mg 12/20/19 10:00 01/15/20 09:14 Pepcid PO 20 mg BID SHANEL Administration Fentanyl 50 mcg 12/27/19 16:57 Sublimaze IV Q10MIN PRN ANALGESIA Folic Acid 1 mg 12/19/19 10:00 01/15/20 09:14 Folvite PO 1 mg DAILY SHANEL Administration Heparin Sodium (Porcine) 5,000 unit 12/18/19 22:00 01/15/20 09:14 Heparin SUB-Q 5,000 unit Q12HR SHANEL Administration Hydrophilic Ointment 1 applic 12/18/19 12:35 Vaseline Lip Therapy TP Q2HR PRN Dry Lips Fentanyl Citrate 2,000 mcg in 100 mls @ 5.85 mls/hr 12/27/19 17:00 01/15/20 03:06 Fentanyl Drip Premix IV 2 mcg/kg/hr TITR HSANEL 11.7 mls/hr Administration Protocol 1 MCG/KG/HR Norepinephrine 4 mg in 250 mls @ 7.5 mls/hr 12/28/19 15:00 01/09/20 09:02 Levophed Drip 4 Mg/Ns 250 Ml IV 0 mcg/min TITR SHANEL 0 mls/hr Titration Protocol 2 MCG/MIN Vasopressin 20 unit/ Sodium 101 mls @ 9.09 mls/hr 12/30/19 12:30 01/01/20 13:44 Chloride IV 0 units/min TITR SHANEL 0 mls/hr Titration Protocol 0.03 UNITS/MIN Dopamine HCl/Dextrose 800 mg in 250 mls @ 4.388 mls/hr 12/31/19 16:00 01/12/20 23:03 Intropin Drip 800 Mg/D5w 250 Ml IV 2 mcg/kg/min TITR SHANEL 4.388 mls/hr Administration Protocol 2 MCG/KG/MIN Insulin Glargine 15 units 01/10/20 14:00 01/14/20 21:50 Lantus SUB-Q 15 units BID SHANEL Administration Insulin Human Lispro 0 unit 12/31/19 14:00 01/15/20 06:11 Humalog SUB-Q Not Given Q4HR [facility] Protocol Levothyroxine Sodium 88 mcg 12/19/19 06:00 01/15/20 06:10 Synthroid PO 88 mcg QAM@0600 SHANEL Administration Multi-Ingred Cream/Lotion/Oil/Oint 1 applic 12/18/19 12:35 Artificial Tears Ophth Oint OU Q4HR PRN Dry Eye(s) Polyethylene Glycol 17 gm 01/01/20 22:00 01/14/20 21:42 Miralax 3350 PO Not Given QHS SHANEL Simple Syrup 15 ml 12/19/19 08:29 01/06/20 04:58 Simple Syrup FEEDTUBE 15 ml PRN PRN Administration Hypoglycemia Simple Syrup 30 ml 12/19/19 08:29 Simple Syrup FEEDTUBE PRN PRN Hypoglycemia Sodium Bicarbonate 325 mg 12/19/19 08:29 Sodium Bicarbonate FEEDTUBE PRN PRN For Clogged Feeding Tube Sodium Chloride 10 ml 12/18/19 22:00 01/15/20 09:16 Sodium Chloride Flush Syringe 10 Ml IV 10 ml BID SHANEL Administration Sodium Chloride 10 ml 12/18/19 13:31 Sodium Chloride Flush Syringe 10 Ml IV PRN PRN LINE FLUSH Nutrition/Malnutrition Assess - Dietary Evaluation Nutrition/Malnutrition Findings: Nutrition Notes Start: 12/19/19 08:16 Freq: Status: Active Protocol: Document 01/14/20 12:00 LM (Rec: 01/14/20 12:23 LM [email or web address]) Nutrition Notes Initial or Follow up Reassessment Current Diagnosis Diabetes,Sepsis,Hypertension, Heart Failure,Respiratory Failure Other Pertinent Diagnosis COVID-19 (-), pneu Current Diet Vital AF 1.2 at 65ml/hr Labs/Tests Reviewed Pertinent Medications Reviewed Height 6 ft 2 in Weight 117 kg [place] Body Weight (kg) 86.36 BMI 33.1 Weight Status Obese Subjective/Other Information TF running at goal rate. No new Na lab. Percent of energy/protein needs met: 94%/68% Burn Absent Trauma Absent Current % PO Negligible Minimum of two criteria No physical signs of malnutrition #1 Nutrition Diagnosis Inadequate oral intake Diagnosis Progress(for reassessment Continues documentation) Is patient on ventilator? Yes Is Patient Ambulatory and/or Out of Bed No REE-([place]-[facility] Jeor-confined to bed) 2469.960 Kcal/Kg value to use for calculation 17 Approximate Energy Requirements Using 1989 kcal/Kg Calculation Used for Recommendations Kcal/kg Additional Notes Protein: 172g (>/=2g/kg using IBW 86kg) Fluid 1ml/kcal Nutrition Intervention Change Diet Order: TF Nutrition Support: Vital AF 1.2 at 65ml/hr Flush 250ml q4h for hypernatremia Flush 100ml q4h Kcal 1,872 Protein (gm) 117 Fluid (mL) 1,265 Goal #1 TF tolerance Goal #2 Meet at least 75% of energy and protein needs Anticipated Discharge Needs: unable to determine at this time Follow-Up By: 01/17/20 Additional Comments F/U for TF tolerance, Na
--- NOTE | 2020-01-15 10:29 | Progress Note ---
Assessment and Plan 1. Sinus bradycardia 2. Respiratory failure intubated on mechanical ventilator 3. Community-acquired lobar pneumonia 4. Positive MRSA sputum Plan Cardiac díaz stable continue present low-dose dopamine. Wean off mechanical ventilator as tolerated. Subjective Date of service: 01/15/20 Principal diagnosis: Ac. Hypoxemic Resp Failure; Septic Shock; Magdiel. PNA; PUI COVID-19; CHF; JOE Interval history: Intubated on mechanical ventilator Objective Vital Signs Temp Pulse Pulse Pulse Resp Resp BP 01/15/20 10:16 55 L 9 L 150/63 01/15/20 10:00 50 L 12 150/63 01/15/20 09:46 54 L 9 L 151/75 01/15/20 09:30 65 14 141/84 01/15/20 09:15 52 L 12 141/84 01/15/20 09:00 73 12 151/74 01/15/20 08:46 67 10 L 146/69 01/15/20 08:30 56 L 13 142/66 01/15/20 08:15 59 L 10 L 144/70 01/15/20 08:00 97.7 F 56 L 15 150/64 01/15/20 07:46 62 12 144/68 01/15/20 07:30 78 15 134/62 01/15/20 07:24 01/15/20 07:22 61 01/15/20 07:16 68 64 16 150/63 01/15/20 07:15 58 L 13 150/63 01/15/20 07:00 67 13 114/53 01/15/20 06:46 54 L 14 114/53 01/15/20 06:30 59 L 16 125/72 01/15/20 06:16 56 L 13 143/58 01/15/20 06:00 57 L 10 L 144/60 01/15/20 05:46 60 11 L 135/61 01/15/20 05:30 66 13 125/62 01/15/20 05:15 59 L 6 L 123/66 01/15/20 05:00 85 14 140/62 01/15/20 04:58 62 140/62 01/15/20 04:45 57 L 16 140/62 01/15/20 04:30 61 11 L 129/66 01/15/20 04:15 53 L 13 129/66 01/15/20 04:00 59 L 83 16 125/69 01/15/20 03:45 62 16 138/60 01/15/20 03:30 61 14 141/67 01/15/20 03:15 59 L 16 140/71 01/15/20 03:00 66 16 148/67 01/15/20 02:45 72 16 148/67 01/15/20 02:30 55 L 14 149/65 01/15/20 02:15 64 17 143/59 01/15/20 02:00 75 15 150/63 01/15/20 01:45 63 15 143/70 01/15/20 01:30 76 15 128/65 01/15/20 01:15 60 15 128/65 01/15/20 01:00 53 L 14 136/70 01/15/20 00:54 66 156/73 01/15/20 00:46 75 18 156/73 01/15/20 00:30 64 55 L 12 141/72 01/15/20 00:20 55 L 01/15/20 00:16 64 14 141/72 01/15/20 00:00 98.1 F 65 13 137/56 01/14/20 23:46 54 L 19 137/56 01/14/20 23:30 55 L 14 149/74 01/14/20 23:16 57 L 11 L 157/84 01/14/20 23:00 64 10 L 144/80 01/14/20 22:45 60 15 138/73 01/14/20 22:44 51 L 13 01/14/20 22:31 56 L 14 137/65 01/14/20 22:15 64 12 144/70 01/14/20 22:01 43 L 11 L 144/70 01/14/20 21:45 80 15 133/72 01/14/20 21:30 54 L 12 134/78 01/14/20 21:15 66 13 129/72 01/14/20 21:01 64 12 129/72 01/14/20 20:45 42 L 18 131/71 01/14/20 20:30 59 L 17 106/67 01/14/20 20:15 76 14 113/56 01/14/20 20:10 63 113/56 01/14/20 20:08 63 15 01/14/20 20:01 59 L 17 107/48 01/14/20 20:00 97.3 F L 64 64 14 01/14/20 19:45 54 L 0 L 107/48 01/14/20 19:30 62 0 L 118/51 01/14/20 19:15 61 12 109/51 01/14/20 19:00 60 14 118/51 01/14/20 18:45 58 L 14 114/47 01/14/20 18:31 57 L 5 L 121/53 01/14/20 18:15 50 L 14 136/52 01/14/20 18:00 60 8 L 126/56 01/14/20 17:46 67 113/53 01/14/20 17:45 68 7 L 113/53 01/14/20 17:30 63 11 L 111/50 01/14/20 17:15 88 6 L 109/58 01/14/20 17:00 92 H 14 111/62 01/14/20 16:45 91 H 0 L 109/58 01/14/20 16:31 99 H 11 L 176/79 01/14/20 16:15 41 L 15 141/71 01/14/20 16:01 81 16 141/71 01/14/20 16:00 97.6 F 70 14 01/14/20 15:45 51 L 14 132/61 01/14/20 15:30 58 L 9 L 125/63 01/14/20 15:15 77 17 143/52 01/14/20 15:01 58 L 54 L 17 17 143/52 01/14/20 14:45 52 L 12 156/76 01/14/20 14:31 64 147/51 01/14/20 14:18 53 L 139/112 01/14/20 14:15 51 L 142/55 01/14/20 14:01 70 142/63 01/14/20 13:45 50 L 142/55 01/14/20 13:31 55 L 121/74 01/14/20 13:15 71 122/96 01/14/20 13:00 68 124/75 01/14/20 12:45 47 L 124/75 01/14/20 12:31 62 128/40 01/14/20 12:15 45 L 135/58 01/14/20 12:01 51 L 135/58 01/14/20 12:00 98.2 F 01/14/20 11:58 75 58 L 01/14/20 11:45 119/55 01/14/20 11:31 119/55 01/14/20 11:15 119/55 01/14/20 11:01 73 119/55 01/14/20 10:45 70 14 119/55 01/14/20 10:30 66 14 126/56 Pulse Ox 01/15/20 10:16 97 01/15/20 10:00 96 01/15/20 09:46 99 01/15/20 09:30 98 01/15/20 09:15 99 01/15/20 09:00 99 01/15/20 08:46 100 01/15/20 08:30 97 01/15/20 08:15 97 01/15/20 08:00 95 01/15/20 07:46 92 01/15/20 07:30 95 01/15/20 07:24 99 01/15/20 07:22 01/15/20 07:16 100 01/15/20 07:15 100 01/15/20 07:00 99 01/15/20 06:46 99 01/15/20 06:30 100 01/15/20 06:16 99 01/15/20 06:00 99 01/15/20 05:46 99 01/15/20 05:30 98 01/15/20 05:15 99 01/15/20 05:00 99 01/15/20 04:58 99 01/15/20 04:45 99 01/15/20 04:30 99 01/15/20 04:15 97 01/15/20 04:00 97 01/15/20 03:45 98 01/15/20 03:30 97 01/15/20 03:15 97 01/15/20 03:00 98 01/15/20 02:45 98 01/15/20 02:30 98 01/15/20 02:15 96 01/15/20 02:00 97 01/15/20 01:45 97 01/15/20 01:30 98 01/15/20 01:15 99 01/15/20 01:00 98 01/15/20 00:54 98 01/15/20 00:46 97 01/15/20 00:30 98 01/15/20 00:20 01/15/20 00:16 97 01/15/20 00:00 97 01/14/20 23:46 98 01/14/20 23:30 98 01/14/20 23:16 99 01/14/20 23:00 99 01/14/20 22:45 96 01/14/20 22:44 97 01/14/20 22:31 99 01/14/20 22:15 99 01/14/20 22:01 96 01/14/20 21:45 99 01/14/20 21:30 95 01/14/20 21:15 94 01/14/20 21:01 96 01/14/20 20:45 96 01/14/20 20:30 96 01/14/20 20:15 100 01/14/20 20:10 95 01/14/20 20:08 01/14/20 20:01 93 01/14/20 20:00 100 01/14/20 19:45 96 01/14/20 19:30 95 01/14/20 19:15 97 01/14/20 19:00 95 01/14/20 18:45 95 01/14/20 18:31 95 01/14/20 18:15 91 01/14/20 18:00 93 01/14/20 17:46 98 01/14/20 17:45 99 01/14/20 17:30 99 01/14/20 17:15 100 01/14/20 17:00 100 01/14/20 16:45 100 01/14/20 16:31 100 01/14/20 16:15 95 01/14/20 16:01 97 01/14/20 16:00 100 01/14/20 15:45 95 01/14/20 15:30 97 01/14/20 15:15 97 01/14/20 15:01 95 01/14/20 14:45 94 01/14/20 14:31 91 01/14/20 14:18 93 01/14/20 14:15 96 01/14/20 14:01 96 01/14/20 13:45 95 01/14/20 13:31 97 01/14/20 13:15 98 01/14/20 13:00 95 01/14/20 12:45 97 01/14/20 12:31 96 01/14/20 12:15 97 01/14/20 12:01 96 01/14/20 12:00 01/14/20 11:58 100 01/14/20 11:45 93 01/14/20 11:31 92 01/14/20 11:15 97 01/14/20 11:01 86 01/14/20 10:45 98 01/14/20 10:30 99 - Physical Examination General: Other (intubated on the vent) HEENT: Positive: PERRL Neck: Positive: neck supple Cardiac: Positive: Regular Rate, PMI, Laterally Displaced. Negative: S3, S4 Lungs: Positive: clear to auscultation, No Wheeze, Rales, Rhonchi Neuro: Positive: Other (Intubated, on the vent) Abdomen: Positive: Soft Skin: Positive: Clear Extremities: Absent: edema - Allied health notes Allied health notes reviewed: nursing
[2020-01-15] MEDS: INSULIN GLARGINE 100 UNITS/ML SUB-Q SCH (10:37)
--- NOTE | 2020-01-15 13:08 | Progress Note ---
Assessment and Plan Acute Hypoxemic Respiratory Failure Severe Sepsis with Shock Bilateral Pneumonia Bradycardia JAGDEEP secondary to ATN, non oliguric Hypernatremia Morbid Obesity H/O CHF JOE - Continue with dopamine, monitor bradycardia. If he remains bradycardic with ongoing requirements for dopamine support, may need to be evaluated for need for pacemaker. Cardiology on consult -Get CXR and ABG in am - Continue Free water at 250 cc q4 and hypotonic solutions for hypernatremia -Continue to monitor off antibiotics, trend temperature curve and WCC -Discussed with general surgery re tracheostomy and PEG placement- sisters are agreeable - planned for Friday -Continue with bowel regimen -Daily SAT and SBT assessment as tolerated - Continue care as below otherwise - accuchecks with glycemic control per SSI (While critically ill target blood glucose of 140-180 mg/dL; avoid hypoglycemia) - sedation for target RASS 0 to -1 - continue to wean supplemental oxygen for target O2 sat's > 92% - continue bronchodilators with pulmonary hygiene per RT - VAP bundle addressed - lung protective strategies - wean per pulmonary driven protocols otherwise - continue to avoid benzodiazepines, reduce the possibility of delirium - prn analgesia per CPOT score - Maintenance of sleep-wake cycle - continue to avoid benzodiazepines, reduce the possibility of delirium - continue enteral nutritional support at goal rate as tolerated - G.I. & VTE prophylaxis - PT/OT/ROM exercises - continue mobility protocols for pressure ulcer prophylaxis - repeat COVID-19 test negative - continue aspiration precautions - continue accuchecks with glycemic control per SSI (While critically ill target blood glucose of 140-180 mg/dL; avoid hypoglycemia) - Monitor hemodynamics closely - continue other care per attending / other consultants .... Re-evaluate in am & prn CONDITION: CRITICAL PROGNOSIS: GUARDED CODE STATUS: FULL CODE The high probability of a clinically significant, sudden or life-threatening deterioration of the [respiratory, cardiovascular, GI & neurologic] system(s) required my full and direct attention, intervention and personal management. The aggregate critical care time was [31] minutes without overlap. Time includes spent on; [x] Data Review and interpretation [x] Patient assessment and monitoring of vital signs [x] Documentation [x] Medication orders and management Subjective Date of service: 01/15/20 Principal diagnosis: Ac. Hypoxemic Resp Failure; Septic Shock; Magdiel. PNA; PUI COVID-19; CHF; JOE Interval history: Patient is seen today for: Acute Hypoxemic Respiratory Failure; Severe Sepsis with Shock; Bilateral Pneumonia; PUI COVID-19; Morbid Obesity; H/O CHF; JOE Seen and examined at bedside; 24hour events reviewed; nursing and respiratory care staff consulted; no adverse overnight events reported to me; resting peacefully in bed; remains on MVS; remains on vasopressor support dopamine at 2 mcg for bradycardia. No fevers,remains on free water flushes of 240 q4 , Agitation on and off Copious tracheal secretions being suctioned from ETT Objective Vital Signs - 12hr 01/15/20 01/15/20 01/15/20 01:15 01:30 01:45 Temperature Pulse Rate 60 76 63 Pulse Rate [ Bilateral] Pulse Rate [ From Monitor] Respiratory 15 15 15 Rate Respiratory Rate [Bilateral ] Blood Pressure 128/65 128/65 143/70 O2 Sat by Pulse 99 98 97 Oximetry 01/15/20 01/15/20 01/15/20 02:00 02:15 02:30 Temperature Pulse Rate 75 64 55 L Pulse Rate [ Bilateral] Pulse Rate [ From Monitor] Respiratory 15 17 14 Rate Respiratory Rate [Bilateral ] Blood Pressure 150/63 143/59 149/65 O2 Sat by Pulse 97 96 98 Oximetry 01/15/20 01/15/20 01/15/20 02:45 03:00 03:15 Temperature Pulse Rate 72 66 59 L Pulse Rate [ Bilateral] Pulse Rate [ From Monitor] Respiratory 16 16 16 Rate Respiratory Rate [Bilateral ] Blood Pressure 148/67 148/67 140/71 O2 Sat by Pulse 98 98 97 Oximetry 01/15/20 01/15/20 01/15/20 03:30 03:45 04:00 Temperature Pulse Rate 61 62 59 L Pulse Rate [ Bilateral] Pulse Rate [ 83 From Monitor] Respiratory 14 16 16 Rate Respiratory Rate [Bilateral ] Blood Pressure 141/67 138/60 125/69 O2 Sat by Pulse 97 98 97 Oximetry 01/15/20 01/15/20 01/15/20 04:15 04:30 04:45 Temperature Pulse Rate 53 L 61 57 L Pulse Rate [ Bilateral] Pulse Rate [ From Monitor] Respiratory 13 11 L 16 Rate Respiratory Rate [Bilateral ] Blood Pressure 129/66 129/66 140/62 O2 Sat by Pulse 97 99 99 Oximetry 01/15/20 01/15/20 01/15/20 04:58 05:00 05:15 Temperature Pulse Rate 62 85 59 L Pulse Rate [ Bilateral] Pulse Rate [ From Monitor] Respiratory 14 6 L Rate Respiratory Rate [Bilateral ] Blood Pressure 140/62 140/62 123/66 O2 Sat by Pulse 99 99 99 Oximetry 01/15/20 01/15/20 01/15/20 05:30 05:46 06:00 Temperature Pulse Rate 66 60 57 L Pulse Rate [ Bilateral] Pulse Rate [ From Monitor] Respiratory 13 11 L 10 L Rate Respiratory Rate [Bilateral ] Blood Pressure 125/62 135/61 144/60 O2 Sat by Pulse 98 99 99 Oximetry 01/15/20 01/15/20 01/15/20 06:16 06:30 06:46 Temperature Pulse Rate 56 L 59 L 54 L Pulse Rate [ Bilateral] Pulse Rate [ From Monitor] Respiratory 13 16 14 Rate Respiratory Rate [Bilateral ] Blood Pressure 143/58 125/72 114/53 O2 Sat by Pulse 99 100 99 Oximetry 01/15/20 01/15/20 01/15/20 07:00 07:15 07:16 Temperature Pulse Rate 67 58 L 68 Pulse Rate [ 64 Bilateral] Pulse Rate [ From Monitor] Respiratory 13 13 Rate Respiratory 16 Rate [Bilateral ] Blood Pressure 114/53 150/63 150/63 O2 Sat by Pulse 99 100 100 Oximetry 01/15/20 01/15/20 01/15/20 07:22 07:24 07:30 Temperature Pulse Rate 61 78 Pulse Rate [ Bilateral] Pulse Rate [ From Monitor] Respiratory 15 Rate Respiratory Rate [Bilateral ] Blood Pressure 134/62 O2 Sat by Pulse 99 95 Oximetry 01/15/20 01/15/20 01/15/20 07:46 08:00 08:15 Temperature 97.7 F Pulse Rate 62 56 L 59 L Pulse Rate [ Bilateral] Pulse Rate [ From Monitor] Respiratory 12 15 10 L Rate Respiratory Rate [Bilateral ] Blood Pressure 144/68 150/64 144/70 O2 Sat by Pulse 92 95 97 Oximetry 01/15/20 01/15/20 01/15/20 08:30 08:46 09:00 Temperature Pulse Rate 56 L 67 73 Pulse Rate [ Bilateral] Pulse Rate [ From Monitor] Respiratory 13 10 L 12 Rate Respiratory Rate [Bilateral ] Blood Pressure 142/66 146/69 151/74 O2 Sat by Pulse 97 100 99 Oximetry 01/15/20 01/15/20 01/15/20 09:15 09:30 09:46 Temperature Pulse Rate 52 L 65 54 L Pulse Rate [ Bilateral] Pulse Rate [ From Monitor] Respiratory 12 14 9 L Rate Respiratory Rate [Bilateral ] Blood Pressure 141/84 141/84 151/75 O2 Sat by Pulse 99 98 99 Oximetry 01/15/20 01/15/20 01/15/20 10:00 10:16 10:30 Temperature Pulse Rate 50 L 55 L 36 L Pulse Rate [ Bilateral] Pulse Rate [ From Monitor] Respiratory 12 9 L 10 L Rate Respiratory Rate [Bilateral ] Blood Pressure 150/63 150/63 150/63 O2 Sat by Pulse 96 97 96 Oximetry 01/15/20 01/15/20 01/15/20 10:46 11:00 11:16 Temperature Pulse Rate 58 L 58 L 48 L Pulse Rate [ Bilateral] Pulse Rate [ From Monitor] Respiratory 28 H 26 H 0 L Rate Respiratory Rate [Bilateral ] Blood Pressure 150/63 150/63 150/63 O2 Sat by Pulse 96 97 95 Oximetry 01/15/20 01/15/20 01/15/20 11:30 11:45 12:00 Temperature 98.5 F Pulse Rate 53 L 48 L 62 Pulse Rate [ Bilateral] Pulse Rate [ 63 From Monitor] Respiratory 18 22 23 Rate Respiratory Rate [Bilateral ] Blood Pressure 151/58 132/56 131/55 O2 Sat by Pulse 96 96 80 L Oximetry 01/15/20 01/15/20 01/15/20 12:15 12:30 12:46 Temperature Pulse Rate 93 H 54 L 58 L Pulse Rate [ Bilateral] Pulse Rate [ From Monitor] Respiratory 21 21 16 Rate Respiratory Rate [Bilateral ] Blood Pressure 141/84 144/62 124/55 O2 Sat by Pulse 94 95 96 Oximetry Constitutional: no acute distress, other (elderly obese AAM with mildly increrased respiratory effort at rest on MVS) Eyes: non-icteric ENT: oropharynx moist, other (ETT 24 cm KOLBY) Neck: supple, no lymphadenopathy, no JVD Effort: normal Ascultation: Bilateral: diminished breath sounds, rhonchi, other (diminished bibasilar air entry) Percussion: Bilateral: not dull Cardiovascular: regular rate and rhythm (Bradycardia), other (S1,S2) Gastrointestinal: normoactive bowel sounds, soft, non-tender, other (protuberant) Integumentary: rash (stasis dermatyitis) Extremities: no cyanosis, pink and warm, pulses normal, no ischemia or petechiae, edema (trace) Neurologic: pupils equal and round, other (responds to verbal and tactile stimuli) Psychiatric: other (unable to assess) CBC and BMP: 01/13/20 Unknown 01/13/20 04:00 ABG, PT/INR, D-dimer: ABG ABG pH 7.223 pH Units (7.350-7.450) L 01/13/20 15:10 ABG pCO2 82.3 mm Hg 01/13/20 15:10 ABG pO2 81.4 mm Hg (80.0-90.0) 01/13/20 15:10 ABG O2 Saturation 94.7 % (95.0-99.0) L 01/13/20 15:10 PT/INR, D-dimer PT 14.0 Sec. (12.2-14.9) 12/18/19 14:45 INR 1.10 (0.87-1.13) 12/18/19 14:45 D-Dimer 534.45 ng/mlDDU (0-234) H 12/18/19 14:45 Abnormal lab findings: Abnormal Labs 12/18/19 12/18/19 12/18/19 12:23 14:45 14:45 WBC RBC Hgb 10.4 L Hct 35.2 L MCV MCH 25 L MCHC 30 L RDW 18.8 H Plt Count Lymph % (Auto) Wright % (Auto) 11.6 H Eos % (Auto) 4.8 H Baso % (Auto) Lymph # Wright # 1.0 H Eos # Baso # Seg Neutrophils % Monocytes % (Manual) Monocytes # (Manual) D-Dimer ABG pH ABG pO2 ABG HCO3 ABG O2 Saturation ABG Base Excess ABG Hemoglobin Oxyhemoglobin Sodium Potassium Chloride Carbon Dioxide BUN Creatinine Glucose POC Glucose 328 H Lactic Acid Calcium Magnesium AST ALT Lactate Dehydrogenase Total Creatine Kinase 40 L C-Reactive Protein Total Protein Albumin Free T4 Urine WBC (Auto) Urine Total Protein Digoxin Salicylates Acetaminophen 12/18/19 12/18/19 12/18/19 14:45 14:45 14:45 WBC RBC Hgb Hct MCV MCH MCHC RDW Plt Count Lymph % (Auto) Wright % (Auto) Eos % (Auto) Baso % (Auto) Lymph # Wright # Eos # Baso # Seg Neutrophils % Monocytes % (Manual) Monocytes # (Manual) D-Dimer 534.45 H ABG pH ABG pO2 ABG HCO3 ABG O2 Saturation ABG Base Excess ABG Hemoglobin Oxyhemoglobin Sodium 156 H Potassium Chloride 112.3 H Carbon Dioxide 31 H BUN 32 H Creatinine Glucose 328 H POC Glucose Lactic Acid Calcium Magnesium AST ALT Lactate Dehydrogenase 235 H Total Creatine Kinase C-Reactive Protein 8.50 H Total Protein Albumin 3.6 L Free T4 Urine WBC (Auto) Urine Total Protein Digoxin 0.3 L Salicylates < 0.3 L Acetaminophen 12/18/19 12/18/19 12/18/19 14:45 14:45 16:00 WBC RBC Hgb Hct MCV MCH MCHC RDW Plt Count Lymph % (Auto) Wright % (Auto) Eos % (Auto) Baso % (Auto) Lymph # Wright # Eos # Baso # Seg Neutrophils % Monocytes % (Manual) Monocytes # (Manual) D-Dimer ABG pH ABG pO2 69.8 L ABG HCO3 31.8 H ABG O2 Saturation ABG Base Excess 5.4 H ABG Hemoglobin 10.0 L Oxyhemoglobin 92.9 L Sodium Potassium Chloride Carbon Dioxide BUN Creatinine Glucose 314 H POC Glucose Lactic Acid Calcium Magnesium AST ALT Lactate Dehydrogenase 236 H Total Creatine Kinase C-Reactive Protein 8.40 H Total Protein Albumin Free T4 Urine WBC (Auto) Urine Total Protein Digoxin Salicylates Acetaminophen < 5.0 L 12/18/19 12/18/19 12/18/19 16:35 18:30 22:56 WBC RBC Hgb Hct MCV MCH MCHC RDW Plt Count Lymph % (Auto) Wright % (Auto) Eos % (Auto) Baso % (Auto) Lymph # Wright # Eos # Baso # Seg Neutrophils % Monocytes % (Manual) Monocytes # (Manual) D-Dimer ABG pH ABG pO2 ABG HCO3 ABG O2 Saturation ABG Base Excess ABG Hemoglobin Oxyhemoglobin Sodium Potassium Chloride Carbon Dioxide BUN Creatinine Glucose POC Glucose 310 H 353 H Lactic Acid 2.50 H* Calcium Magnesium AST ALT Lactate Dehydrogenase Total Creatine Kinase C-Reactive Protein Total Protein Albumin Free T4 Urine WBC (Auto) Urine Total Protein Digoxin Salicylates Acetaminophen 12/19/19 12/19/19 12/19/19 04:13 04:13 06:00 WBC RBC Hgb 10.0 L Hct 34.2 L MCV MCH 25 L MCHC 29 L RDW 19.0 H Plt Count Lymph % (Auto) Wright % (Auto) 10.1 H Eos % (Auto) Baso % (Auto) Lymph # Wright # 1.1 H Eos # Baso # Seg Neutrophils % 71.8 H Monocytes % (Manual) Monocytes # (Manual) D-Dimer ABG pH ABG pO2 186.5 H ABG HCO3 27.8 H ABG O2 Saturation 99.1 H ABG Base Excess ABG Hemoglobin 10.4 L Oxyhemoglobin Sodium 157 H Potassium Chloride 119.1 H Carbon Dioxide BUN 26 H Creatinine Glucose 302 H POC Glucose Lactic Acid Calcium 7.9 L Magnesium AST 85 H ALT 61 H Lactate Dehydrogenase Total Creatine Kinase C-Reactive Protein Total Protein Albumin 3.0 L Free T4 Urine WBC (Auto) Urine Total Protein Digoxin Salicylates Acetaminophen 12/19/19 12/19/19 12/19/19 08:30 11:55 16:50 WBC RBC Hgb Hct MCV MCH MCHC RDW Plt Count Lymph % (Auto) Wright % (Auto) Eos % (Auto) Baso % (Auto) Lymph # Wright # Eos # Baso # Seg Neutrophils % Monocytes % (Manual) Monocytes # (Manual) D-Dimer ABG pH ABG pO2 ABG HCO3 ABG O2 Saturation ABG Base Excess ABG Hemoglobin Oxyhemoglobin Sodium Potassium Chloride Carbon Dioxide BUN Creatinine Glucose POC Glucose 264 H 251 H Lactic Acid Calcium Magnesium AST ALT Lactate Dehydrogenase Total Creatine Kinase C-Reactive Protein Total Protein Albumin Free T4 Urine WBC (Auto) 7.0 H Urine Total Protein Digoxin Salicylates Acetaminophen 12/19/19 12/19/19 12/20/19 17:41 23:42 03:35 WBC RBC Hgb Hct MCV MCH MCHC RDW Plt Count Lymph % (Auto) Wright % (Auto) Eos % (Auto) Baso % (Auto) Lymph # Wright # Eos # Baso # Seg Neutrophils % Monocytes % (Manual) Monocytes # (Manual) D-Dimer ABG pH ABG pO2 ABG HCO3 27.7 H ABG O2 Saturation ABG Base Excess ABG Hemoglobin 11.6 L Oxyhemoglobin 94.9 L Sodium Potassium Chloride Carbon Dioxide BUN Creatinine Glucose POC Glucose 180 H 205 H Lactic Acid Calcium Magnesium AST ALT Lactate Dehydrogenase Total Creatine Kinase C-Reactive Protein Total Protein Albumin Free T4 Urine WBC (Auto) Urine Total Protein Digoxin Salicylates Acetaminophen 12/20/19 12/20/19 12/20/19 04:45 04:45 05:27 WBC RBC Hgb 9.4 L Hct 31.4 L MCV MCH 25 L MCHC 30 L RDW 19.4 H Plt Count Lymph % (Auto) Wright % (Auto) 10.2 H Eos % (Auto) 6.0 H Baso % (Auto) Lymph # 0.9 L Wright # Eos # Baso # Seg Neutrophils % Monocytes % (Manual) Monocytes # (Manual) D-Dimer ABG pH ABG pO2 ABG HCO3 ABG O2 Saturation ABG Base Excess ABG Hemoglobin Oxyhemoglobin Sodium 153 H Potassium Chloride 114.6 H Carbon Dioxide BUN Creatinine Glucose 170 H POC Glucose 188 H Lactic Acid Calcium 7.9 L Magnesium AST ALT Lactate Dehydrogenase Total Creatine Kinase C-Reactive Protein Total Protein Albumin Free T4 Urine WBC (Auto) Urine Total Protein Digoxin Salicylates Acetaminophen 12/20/19 12/20/19 12/21/19 12:26 18:20 00:20 WBC RBC Hgb Hct MCV MCH MCHC RDW Plt Count Lymph % (Auto) Wright % (Auto) Eos % (Auto) Baso % (Auto) Lymph # Wright # Eos # Baso # Seg Neutrophils % Monocytes % (Manual) Monocytes # (Manual) D-Dimer ABG pH ABG pO2 ABG HCO3 ABG O2 Saturation ABG Base Excess ABG Hemoglobin Oxyhemoglobin Sodium Potassium Chloride Carbon Dioxide BUN Creatinine Glucose POC Glucose 200 H 263 H 218 H Lactic Acid Calcium Magnesium AST ALT Lactate Dehydrogenase Total Creatine Kinase C-Reactive Protein Total Protein Albumin Free T4 Urine WBC (Auto) Urine Total Protein Digoxin Salicylates Acetaminophen 12/21/19 12/21/19 12/21/19 04:38 05:26 12:35 WBC RBC Hgb Hct MCV MCH MCHC RDW Plt Count Lymph % (Auto) Wright % (Auto) Eos % (Auto) Baso % (Auto) Lymph # Wright # Eos # Baso # Seg Neutrophils % Monocytes % (Manual) Monocytes # (Manual) D-Dimer ABG pH ABG pO2 ABG HCO3 ABG O2 Saturation ABG Base Excess ABG Hemoglobin Oxyhemoglobin Sodium 149 H Potassium 3.5 L Chloride 110.5 H Carbon Dioxide BUN Creatinine Glucose 158 H POC Glucose 193 H 193 H Lactic Acid Calcium Magnesium AST ALT Lactate Dehydrogenase Total Creatine Kinase C-Reactive Protein Total Protein Albumin Free T4 Urine WBC (Auto) Urine Total Protein Digoxin Salicylates Acetaminophen 12/21/19 12/22/19 12/22/19 18:29 00:03 05:15 WBC RBC Hgb 10.3 L Hct 34.7 L MCV MCH 25 L MCHC 30 L RDW 19.4 H Plt Count Lymph % (Auto) 9.0 L Wright % (Auto) 12.3 H Eos % (Auto) 5.0 H Baso % (Auto) Lymph # 0.5 L Wright # Eos # Baso # Seg Neutrophils % 73.2 H Monocytes % (Manual) Monocytes # (Manual) D-Dimer ABG pH ABG pO2 ABG HCO3 ABG O2 Saturation ABG Base Excess ABG Hemoglobin Oxyhemoglobin Sodium Potassium Chloride Carbon Dioxide BUN Creatinine Glucose POC Glucose 186 H 143 H Lactic Acid Calcium Magnesium AST ALT Lactate Dehydrogenase Total Creatine Kinase C-Reactive Protein Total Protein Albumin Free T4 Urine WBC (Auto) Urine Total Protein Digoxin Salicylates Acetaminophen 12/22/19 12/22/19 12/22/19 05:15 06:02 12:13 WBC RBC Hgb Hct MCV MCH MCHC RDW Plt Count Lymph % (Auto) Wright % (Auto) Eos % (Auto) Baso % (Auto) Lymph # Wright # Eos # Baso # Seg Neutrophils % Monocytes % (Manual) Monocytes # (Manual) D-Dimer ABG pH ABG pO2 ABG HCO3 ABG O2 Saturation ABG Base Excess ABG Hemoglobin Oxyhemoglobin Sodium 152 H Potassium Chloride 113.5 H Carbon Dioxide BUN Creatinine Glucose 126 H POC Glucose 144 H 159 H Lactic Acid Calcium Magnesium AST ALT Lactate Dehydrogenase Total Creatine Kinase C-Reactive Protein Total Protein Albumin Free T4 Urine WBC (Auto) Urine Total Protein Digoxin Salicylates Acetaminophen 12/22/19 12/22/19 12/23/19 18:03 23:50 05:27 WBC RBC Hgb Hct MCV MCH MCHC RDW Plt Count Lymph % (Auto) Wright % (Auto) Eos % (Auto) Baso % (Auto) Lymph # Wright # Eos # Baso # Seg Neutrophils % Monocytes % (Manual) Monocytes # (Manual) D-Dimer ABG pH ABG pO2 ABG HCO3 ABG O2 Saturation ABG Base Excess ABG Hemoglobin Oxyhemoglobin Sodium Potassium Chloride Carbon Dioxide BUN Creatinine Glucose POC Glucose 140 H 227 H 185 H Lactic Acid Calcium Magnesium AST ALT Lactate Dehydrogenase Total Creatine Kinase C-Reactive Protein Total Protein Albumin Free T4 Urine WBC (Auto) Urine Total Protein Digoxin Salicylates Acetaminophen 12/23/19 12/23/19 12/23/19 12:13 16:05 16:40 WBC RBC Hgb Hct MCV MCH MCHC RDW Plt Count Lymph % (Auto) Wright % (Auto) Eos % (Auto) Baso % (Auto) Lymph # Wright # Eos # Baso # Seg Neutrophils % Monocytes % (Manual) Monocytes # (Manual) D-Dimer ABG pH 7.259 L ABG pO2 76.2 L ABG HCO3 30.6 H ABG O2 Saturation 94.6 L ABG Base Excess ABG Hemoglobin 11.5 L Oxyhemoglobin 92.2 L Sodium 163 H* D Potassium 3.4 L Chloride 120.1 H Carbon Dioxide BUN Creatinine Glucose 162 H POC Glucose 132 H Lactic Acid Calcium Magnesium AST ALT Lactate Dehydrogenase Total Creatine Kinase C-Reactive Protein Total Protein Albumin Free T4 Urine WBC (Auto) Urine Total Protein Digoxin Salicylates Acetaminophen 12/23/19 12/24/19 12/24/19 17:53 00:48 04:20 WBC RBC Hgb Hct MCV MCH MCHC RDW Plt Count Lymph % (Auto) Wright % (Auto) Eos % (Auto) Baso % (Auto) Lymph # Wright # Eos # Baso # Seg Neutrophils % Monocytes % (Manual) Monocytes # (Manual) D-Dimer ABG pH ABG pO2 ABG HCO3 30.4 H ABG O2 Saturation ABG Base Excess 3.9 H ABG Hemoglobin 10.3 L Oxyhemoglobin 94.4 L Sodium Potassium Chloride Carbon Dioxide BUN Creatinine Glucose POC Glucose 180 H 174 H Lactic Acid Calcium Magnesium AST ALT Lactate Dehydrogenase Total Creatine Kinase C-Reactive Protein Total Protein Albumin Free T4 Urine WBC (Auto) Urine Total Protein Digoxin Salicylates Acetaminophen 12/24/19 12/24/19 12/24/19 04:53 04:53 11:50 WBC RBC Hgb 9.7 L Hct 33.2 L MCV MCH 25 L MCHC 29 L RDW 20.1 H Plt Count Lymph % (Auto) Wright % (Auto) Eos % (Auto) Baso % (Auto) Lymph # Wright # Eos # Baso # Seg Neutrophils % Monocytes % (Manual) 15.0 H Monocytes # (Manual) 0.9 H D-Dimer ABG pH ABG pO2 ABG HCO3 ABG O2 Saturation ABG Base Excess ABG Hemoglobin Oxyhemoglobin Sodium 163 H* Potassium 3.2 L Chloride 122.6 H Carbon Dioxide BUN Creatinine Glucose 168 H POC Glucose 190 H Lactic Acid Calcium Magnesium AST ALT Lactate Dehydrogenase Total Creatine Kinase C-Reactive Protein Total Protein Albumin Free T4 Urine WBC (Auto) Urine Total Protein Digoxin Salicylates Acetaminophen 12/24/19 12/24/19 12/24/19 15:00 16:28 21:15 WBC RBC Hgb Hct MCV MCH MCHC RDW Plt Count Lymph % (Auto) Wright % (Auto) Eos % (Auto) Baso % (Auto) Lymph # Wright # Eos # Baso # Seg Neutrophils % Monocytes % (Manual) Monocytes # (Manual) D-Dimer ABG pH ABG pO2 ABG HCO3 ABG O2 Saturation ABG Base Excess ABG Hemoglobin Oxyhemoglobin Sodium 165 H* D 163 H* Potassium Chloride Carbon Dioxide BUN Creatinine Glucose POC Glucose 160 H Lactic Acid Calcium Magnesium AST ALT Lactate Dehydrogenase Total Creatine Kinase C-Reactive Protein Total Protein Albumin Free T4 Urine WBC (Auto) Urine Total Protein Digoxin Salicylates Acetaminophen 12/25/19 12/25/19 12/25/19 00:31 05:38 05:46 WBC RBC Hgb 9.7 L Hct 32.5 L MCV MCH 25 L MCHC 30 L RDW 19.4 H Plt Count Lymph % (Auto) Wright % (Auto) Eos % (Auto) Baso % (Auto) Lymph # Wright # Eos # Baso # Seg Neutrophils % Monocytes % (Manual) Monocytes # (Manual) D-Dimer ABG pH ABG pO2 ABG HCO3 ABG O2 Saturation ABG Base Excess ABG Hemoglobin Oxyhemoglobin Sodium Potassium Chloride Carbon Dioxide BUN Creatinine Glucose POC Glucose 182 H 194 H Lactic Acid Calcium Magnesium AST ALT Lactate Dehydrogenase Total Creatine Kinase C-Reactive Protein Total Protein Albumin Free T4 Urine WBC (Auto) Urine Total Protein Digoxin Salicylates Acetaminophen 12/25/19 12/25/19 12/25/19 05:46 11:35 11:38 WBC RBC Hgb Hct MCV MCH MCHC RDW Plt Count Lymph % (Auto) Wright % (Auto) Eos % (Auto) Baso % (Auto) Lymph # Wright # Eos # Baso # Seg Neutrophils % Monocytes % (Manual) Monocytes # (Manual) D-Dimer ABG pH 7.330 L ABG pO2 65.7 L ABG HCO3 32.6 H ABG O2 Saturation 92.5 L ABG Base Excess 5.3 H ABG Hemoglobin 10.4 L Oxyhemoglobin 90.0 L Sodium 166 H* Potassium 2.9 L* Chloride 124.5 H Carbon Dioxide BUN Creatinine Glucose 190 H POC Glucose 192 H Lactic Acid Calcium Magnesium AST ALT Lactate Dehydrogenase Total Creatine Kinase C-Reactive Protein Total Protein Albumin Free T4 Urine WBC (Auto) Urine Total Protein Digoxin Salicylates Acetaminophen 12/25/19 12/25/19 12/25/19 13:01 16:45 17:20 WBC RBC Hgb Hct MCV MCH MCHC RDW Plt Count Lymph % (Auto) Wright % (Auto) Eos % (Auto) Baso % (Auto) Lymph # Wright # Eos # Baso # Seg Neutrophils % Monocytes % (Manual) Monocytes # (Manual) D-Dimer ABG pH 7.296 L ABG pO2 101.5 H ABG HCO3 33.2 H ABG O2 Saturation ABG Base Excess 5.3 H ABG Hemoglobin 9.6 L Oxyhemoglobin 94.6 L Sodium 174 H* Potassium Chloride Carbon Dioxide BUN Creatinine Glucose POC Glucose Lactic Acid Calcium Magnesium AST ALT Lactate Dehydrogenase Total Creatine Kinase C-Reactive Protein Total Protein Albumin Free T4 Urine WBC (Auto) Urine Total Protein < 4 L Digoxin Salicylates Acetaminophen 12/25/19 12/25/19 12/26/19 17:48 18:50 00:43 WBC RBC Hgb Hct MCV MCH MCHC RDW Plt Count Lymph % (Auto) Wright % (Auto) Eos % (Auto) Baso % (Auto) Lymph # Wright # Eos # Baso # Seg Neutrophils % Monocytes % (Manual) Monocytes # (Manual) D-Dimer ABG pH ABG pO2 ABG HCO3 ABG O2 Saturation ABG Base Excess ABG Hemoglobin Oxyhemoglobin Sodium 166 H* 164 H* Potassium Chloride 127.3 H Carbon Dioxide BUN Creatinine Glucose 220 H POC Glucose 252 H Lactic Acid Calcium Magnesium AST ALT Lactate Dehydrogenase Total Creatine Kinase C-Reactive Protein Total Protein Albumin Free T4 Urine WBC (Auto) Urine Total Protein Digoxin Salicylates Acetaminophen 12/26/19 12/26/19 12/26/19 05:31 08:07 08:07 WBC 4.3 L RBC Hgb 9.6 L Hct 32.1 L MCV MCH 26 L MCHC 30 L RDW 20.5 H Plt Count Lymph % (Auto) Wright % (Auto) Eos % (Auto) Baso % (Auto) Lymph # Wright # Eos # Baso # Seg Neutrophils % Monocytes % (Manual) Monocytes # (Manual) D-Dimer ABG pH ABG pO2 ABG HCO3 ABG O2 Saturation ABG Base Excess ABG Hemoglobin Oxyhemoglobin Sodium 162 H* Potassium Chloride 122.1 H Carbon Dioxide BUN Creatinine Glucose 247 H POC Glucose 187 H Lactic Acid Calcium Magnesium AST ALT Lactate Dehydrogenase Total Creatine Kinase C-Reactive Protein Total Protein Albumin Free T4 Urine WBC (Auto) Urine Total Protein Digoxin Salicylates Acetaminophen 12/26/19 12/26/19 12/26/19 08:07 12:20 16:25 WBC RBC Hgb Hct MCV MCH MCHC RDW Plt Count Lymph % (Auto) Wright % (Auto) Eos % (Auto) Baso % (Auto) Lymph # Wright # Eos # Baso # Seg Neutrophils % Monocytes % (Manual) Monocytes # (Manual) D-Dimer ABG pH 7.290 L ABG pO2 73.2 L ABG HCO3 33.2 H ABG O2 Saturation 94.9 L ABG Base Excess 5.2 H ABG Hemoglobin 10.0 L Oxyhemoglobin 92.5 L Sodium 159 H Potassium Chloride Carbon Dioxide BUN Creatinine Glucose POC Glucose 234 H Lactic Acid Calcium Magnesium AST ALT Lactate Dehydrogenase Total Creatine Kinase C-Reactive Protein Total Protein Albumin Free T4 Urine WBC (Auto) Urine Total Protein Digoxin Salicylates Acetaminophen 12/26/19 12/26/19 12/26/19 17:33 22:35 23:30 WBC RBC Hgb Hct MCV MCH MCHC RDW Plt Count Lymph % (Auto) Wright % (Auto) Eos % (Auto) Baso % (Auto) Lymph # Wright # Eos # Baso # Seg Neutrophils % Monocytes % (Manual) Monocytes # (Manual) D-Dimer ABG pH ABG pO2 ABG HCO3 ABG O2 Saturation ABG Base Excess ABG Hemoglobin Oxyhemoglobin Sodium Potassium Chloride Carbon Dioxide BUN Creatinine Glucose POC Glucose 244 H 208 H 287 H Lactic Acid Calcium Magnesium AST ALT Lactate Dehydrogenase Total Creatine Kinase C-Reactive Protein Total Protein Albumin Free T4 Urine WBC (Auto) Urine Total Protein Digoxin Salicylates Acetaminophen 12/27/19 12/27/19 12/27/19 03:48 03:48 03:48 WBC RBC Hgb 10.1 L Hct 35.4 L MCV MCH 25 L MCHC 29 L RDW 20.1 H Plt Count Lymph % (Auto) Wright % (Auto) Eos % (Auto) Baso % (Auto) Lymph # Wright # Eos # Baso # Seg Neutrophils % Monocytes % (Manual) Monocytes # (Manual) D-Dimer ABG pH ABG pO2 ABG HCO3 ABG O2 Saturation ABG Base Excess ABG Hemoglobin Oxyhemoglobin Sodium 160 H Potassium Chloride 118.8 H Carbon Dioxide 33 H BUN Creatinine Glucose 217 H POC Glucose Lactic Acid Calcium Magnesium 2.70 H AST ALT Lactate Dehydrogenase Total Creatine Kinase C-Reactive Protein Total Protein Albumin Free T4 Urine WBC (Auto) Urine Total Protein Digoxin Salicylates Acetaminophen 12/27/19 12/27/19 12/27/19 05:50 11:58 16:05 WBC RBC Hgb Hct MCV MCH MCHC RDW Plt Count Lymph % (Auto) Wright % (Auto) Eos % (Auto) Baso % (Auto) Lymph # Wright # Eos # Baso # Seg Neutrophils % Monocytes % (Manual) Monocytes # (Manual) D-Dimer ABG pH 7.180 L* ABG pO2 73.6 L ABG HCO3 34.8 H ABG O2 Saturation 92.7 L ABG Base Excess 3.8 H ABG Hemoglobin 12.0 L Oxyhemoglobin 90.2 L Sodium Potassium Chloride Carbon Dioxide BUN Creatinine Glucose POC Glucose 224 H 218 H Lactic Acid Calcium Magnesium AST ALT Lactate Dehydrogenase Total Creatine Kinase C-Reactive Protein Total Protein Albumin Free T4 Urine WBC (Auto) Urine Total Protein Digoxin Salicylates Acetaminophen 12/27/19 12/27/19 12/27/19 18:05 19:50 21:53 WBC RBC Hgb Hct MCV MCH MCHC RDW Plt Count Lymph % (Auto) Wright % (Auto) Eos % (Auto) Baso % (Auto) Lymph # Wright # Eos # Baso # Seg Neutrophils % Monocytes % (Manual) Monocytes # (Manual) D-Dimer ABG pH 7.328 L ABG pO2 49.9 L ABG HCO3 33.3 H ABG O2 Saturation 87.1 L ABG Base Excess 5.7 H ABG Hemoglobin 11.2 L Oxyhemoglobin 84.8 L Sodium Potassium Chloride Carbon Dioxide BUN Creatinine Glucose POC Glucose 214 H 178 H Lactic Acid Calcium Magnesium AST ALT Lactate Dehydrogenase Total Creatine Kinase C-Reactive Protein Total Protein Albumin Free T4 Urine WBC (Auto) Urine Total Protein Digoxin Salicylates Acetaminophen 12/28/19 12/28/19 12/28/19 00:42 04:37 04:37 WBC RBC Hgb 9.8 L Hct 33.5 L MCV MCH 25 L MCHC 29 L RDW 21.1 H Plt Count Lymph % (Auto) Wright % (Auto) Eos % (Auto) Baso % (Auto) Lymph # Wright # Eos # Baso # Seg Neutrophils % Monocytes % (Manual) Monocytes # (Manual) D-Dimer ABG pH ABG pO2 ABG HCO3 ABG O2 Saturation ABG Base Excess ABG Hemoglobin Oxyhemoglobin Sodium 157 H Potassium 3.4 L Chloride 117.5 H Carbon Dioxide BUN Creatinine Glucose 193 H POC Glucose 157 H Lactic Acid Calcium Magnesium AST ALT Lactate Dehydrogenase Total Creatine Kinase C-Reactive Protein Total Protein Albumin Free T4 Urine WBC (Auto) Urine Total Protein Digoxin Salicylates Acetaminophen 12/28/19 12/28/19 12/28/19 04:52 05:19 12:05 WBC RBC Hgb Hct MCV MCH MCHC RDW Plt Count Lymph % (Auto) Wright % (Auto) Eos % (Auto) Baso % (Auto) Lymph # Wright # Eos # Baso # Seg Neutrophils % Monocytes % (Manual) Monocytes # (Manual) D-Dimer ABG pH ABG pO2 51.7 L ABG HCO3 28.7 H ABG O2 Saturation 89.9 L ABG Base Excess 4.1 H ABG Hemoglobin 9.7 L Oxyhemoglobin 87.7 L Sodium Potassium Chloride Carbon Dioxide BUN Creatinine Glucose POC Glucose 202 H 248 H Lactic Acid Calcium Magnesium AST ALT Lactate Dehydrogenase Total Creatine Kinase C-Reactive Protein Total Protein Albumin Free T4 Urine WBC (Auto) Urine Total Protein Digoxin Salicylates Acetaminophen 12/28/19 12/28/19 12/28/19 18:11 21:15 23:22 WBC RBC Hgb Hct MCV MCH MCHC RDW Plt Count Lymph % (Auto) Wright % (Auto) Eos % (Auto) Baso % (Auto) Lymph # Wright # Eos # Baso # Seg Neutrophils % Monocytes % (Manual) Monocytes # (Manual) D-Dimer ABG pH ABG pO2 ABG HCO3 ABG O2 Saturation ABG Base Excess ABG Hemoglobin Oxyhemoglobin Sodium Potassium Chloride Carbon Dioxide BUN Creatinine Glucose POC Glucose 226 H 217 H 227 H Lactic Acid Calcium Magnesium AST ALT Lactate Dehydrogenase Total Creatine Kinase C-Reactive Protein Total Protein Albumin Free T4 Urine WBC (Auto) Urine Total Protein Digoxin Salicylates Acetaminophen 12/29/19 12/29/19 12/29/19 04:09 04:59 04:59 WBC 11.1 H RBC Hgb 9.3 L Hct 31.1 L MCV 81 L MCH 24 L MCHC 30 L RDW 19.9 H Plt Count Lymph % (Auto) Wright % (Auto) Eos % (Auto) Baso % (Auto) Lymph # Wright # Eos # Baso # Seg Neutrophils % Monocytes % (Manual) Monocytes # (Manual) D-Dimer ABG pH 7.473 H ABG pO2 126.1 H ABG HCO3 29.2 H ABG O2 Saturation ABG Base Excess 5.1 H ABG Hemoglobin 8.4 L Oxyhemoglobin Sodium 157 H Potassium 3.2 L Chloride 118.2 H Carbon Dioxide BUN Creatinine 1.7 H Glucose 229 H POC Glucose Lactic Acid Calcium Magnesium AST ALT Lactate Dehydrogenase Total Creatine Kinase C-Reactive Protein Total Protein Albumin Free T4 Urine WBC (Auto) Urine Total Protein Digoxin Salicylates Acetaminophen 12/29/19 12/29/19 12/29/19 05:15 12:13 17:59 WBC RBC Hgb Hct MCV MCH MCHC RDW Plt Count Lymph % (Auto) Wright % (Auto) Eos % (Auto) Baso % (Auto) Lymph # Wright # Eos # Baso # Seg Neutrophils % Monocytes % (Manual) Monocytes # (Manual) D-Dimer ABG pH ABG pO2 ABG HCO3 ABG O2 Saturation ABG Base Excess ABG Hemoglobin Oxyhemoglobin Sodium Potassium Chloride Carbon Dioxide BUN Creatinine Glucose POC Glucose 221 H 392 H 365 H Lactic Acid Calcium Magnesium AST ALT Lactate Dehydrogenase Total Creatine Kinase C-Reactive Protein Total Protein Albumin Free T4 Urine WBC (Auto) Urine Total Protein Digoxin Salicylates Acetaminophen 12/29/19 12/29/19 12/30/19 20:25 23:38 04:45 WBC RBC Hgb Hct MCV MCH MCHC RDW Plt Count Lymph % (Auto) Wright % (Auto) Eos % (Auto) Baso % (Auto) Lymph # Wright # Eos # Baso # Seg Neutrophils % Monocytes % (Manual) Monocytes # (Manual) D-Dimer ABG pH 7.261 L 7.343 L ABG pO2 60.3 L 54.3 L ABG HCO3 32.1 H 30.9 H ABG O2 Saturation 87.6 L 88.3 L ABG Base Excess 3.7 H 4.0 H ABG Hemoglobin 9.7 L 11.6 L Oxyhemoglobin 85.2 L 86.0 L Sodium Potassium Chloride Carbon Dioxide BUN Creatinine Glucose POC Glucose 402 H Lactic Acid Calcium Magnesium AST ALT Lactate Dehydrogenase Total Creatine Kinase C-Reactive Protein Total Protein Albumin Free T4 Urine WBC (Auto) Urine Total Protein Digoxin Salicylates Acetaminophen 12/30/19 12/30/19 12/30/19 05:06 05:06 05:06 WBC 11.7 H RBC Hgb 9.4 L Hct 32.4 L MCV 83 L MCH 24 L MCHC 29 L RDW 20.2 H Plt Count Lymph % (Auto) Wright % (Auto) Eos % (Auto) Baso % (Auto) Lymph # Wright # Eos # Baso # Seg Neutrophils % Monocytes % (Manual) Monocytes # (Manual) D-Dimer ABG pH ABG pO2 ABG HCO3 ABG O2 Saturation ABG Base Excess ABG Hemoglobin Oxyhemoglobin Sodium 159 H Potassium 3.2 L Chloride 120.1 H Carbon Dioxide 31 H BUN Creatinine 1.9 H Glucose 404 H POC Glucose Lactic Acid Calcium Magnesium 2.60 H AST ALT Lactate Dehydrogenase Total Creatine Kinase C-Reactive Protein Total Protein Albumin Free T4 Urine WBC (Auto) Urine Total Protein Digoxin Salicylates Acetaminophen 12/30/19 12/30/19 12/30/19 06:26 12:29 13:44 WBC RBC Hgb Hct MCV MCH MCHC RDW Plt Count Lymph % (Auto) Wright % (Auto) Eos % (Auto) Baso % (Auto) Lymph # Wright # Eos # Baso # Seg Neutrophils % Monocytes % (Manual) Monocytes # (Manual) D-Dimer ABG pH ABG pO2 ABG HCO3 ABG O2 Saturation ABG Base Excess ABG Hemoglobin Oxyhemoglobin Sodium Potassium Chloride Carbon Dioxide BUN Creatinine Glucose POC Glucose 399 H 469 H > 500 H Lactic Acid Calcium Magnesium AST ALT Lactate Dehydrogenase Total Creatine Kinase C-Reactive Protein Total Protein Albumin Free T4 Urine WBC (Auto) Urine Total Protein Digoxin Salicylates Acetaminophen 12/30/19 12/30/19 12/30/19 13:51 16:32 18:05 WBC RBC Hgb Hct MCV MCH MCHC RDW Plt Count Lymph % (Auto) Wright % (Auto) Eos % (Auto) Baso % (Auto) Lymph # Wright # Eos # Baso # Seg Neutrophils % Monocytes % (Manual) Monocytes # (Manual) D-Dimer ABG pH ABG pO2 ABG HCO3 ABG O2 Saturation ABG Base Excess ABG Hemoglobin Oxyhemoglobin Sodium Potassium Chloride Carbon Dioxide BUN Creatinine Glucose POC Glucose > 500 H 445 H 429 H Lactic Acid Calcium Magnesium AST ALT Lactate Dehydrogenase Total Creatine Kinase C-Reactive Protein Total Protein Albumin Free T4 Urine WBC (Auto) Urine Total Protein Digoxin Salicylates Acetaminophen 12/30/19 12/30/19 12/31/19 21:42 Unknown 00:00 WBC RBC Hgb Hct MCV MCH MCHC RDW Plt Count Lymph % (Auto) Wright % (Auto) Eos % (Auto) Baso % (Auto) Lymph # Wright # Eos # Baso # Seg Neutrophils % Monocytes % (Manual) Monocytes # (Manual) D-Dimer ABG pH ABG pO2 ABG HCO3 ABG O2 Saturation ABG Base Excess ABG Hemoglobin Oxyhemoglobin Sodium Potassium Chloride Carbon Dioxide BUN Creatinine Glucose 498 H POC Glucose 371 H 452 H Lactic Acid Calcium Magnesium AST ALT Lactate Dehydrogenase Total Creatine Kinase C-Reactive Protein Total Protein Albumin Free T4 Urine WBC (Auto) Urine Total Protein Digoxin Salicylates Acetaminophen 12/31/19 12/31/19 12/31/19 04:31 05:42 08:01 WBC RBC Hgb Hct MCV MCH MCHC RDW Plt Count Lymph % (Auto) Wright % (Auto) Eos % (Auto) Baso % (Auto) Lymph # Wright # Eos # Baso # Seg Neutrophils % Monocytes % (Manual) Monocytes # (Manual) D-Dimer ABG pH 7.251 L ABG pO2 62.4 L ABG HCO3 31.1 H ABG O2 Saturation 88.7 L ABG Base Excess ABG Hemoglobin 8.7 L Oxyhemoglobin 86.4 L Sodium Potassium Chloride Carbon Dioxide BUN Creatinine Glucose POC Glucose 443 H 443 H Lactic Acid Calcium Magnesium AST ALT Lactate Dehydrogenase Total Creatine Kinase C-Reactive Protein Total Protein Albumin Free T4 Urine WBC (Auto) Urine Total Protein Digoxin Salicylates Acetaminophen 12/31/19 12/31/19 12/31/19 09:08 10:00 11:50 WBC RBC Hgb Hct MCV MCH MCHC RDW Plt Count Lymph % (Auto) Wright % (Auto) Eos % (Auto) Baso % (Auto) Lymph # Wright # Eos # Baso # Seg Neutrophils % Monocytes % (Manual) Monocytes # (Manual) D-Dimer ABG pH 7.325 L ABG pO2 97.2 H ABG HCO3 30.1 H ABG O2 Saturation ABG Base Excess 3.4 H ABG Hemoglobin 8.3 L Oxyhemoglobin 94.7 L Sodium 151 H D Potassium 3.2 L Chloride 113.0 H Carbon Dioxide BUN 23 H Creatinine 1.8 H Glucose 373 H POC Glucose 465 H Lactic Acid Calcium Magnesium AST ALT Lactate Dehydrogenase Total Creatine Kinase C-Reactive Protein Total Protein Albumin Free T4 Urine WBC (Auto) Urine Total Protein Digoxin Salicylates Acetaminophen 12/31/19 12/31/19 12/31/19 12:25 13:33 18:30 WBC RBC Hgb Hct MCV MCH MCHC RDW Plt Count Lymph % (Auto) Wright % (Auto) Eos % (Auto) Baso % (Auto) Lymph # Wright # Eos # Baso # Seg Neutrophils % Monocytes % (Manual) Monocytes # (Manual) D-Dimer ABG pH ABG pO2 ABG HCO3 ABG O2 Saturation ABG Base Excess ABG Hemoglobin Oxyhemoglobin Sodium Potassium Chloride Carbon Dioxide BUN Creatinine Glucose POC Glucose 379 H 311 H 349 H Lactic Acid Calcium Magnesium AST ALT Lactate Dehydrogenase Total Creatine Kinase C-Reactive Protein Total Protein Albumin Free T4 Urine WBC (Auto) Urine Total Protein Digoxin Salicylates Acetaminophen 12/31/19 12/31/19 01/01/20 22:29 23:30 02:58 WBC RBC Hgb Hct MCV MCH MCHC RDW Plt Count Lymph % (Auto) Wright % (Auto) Eos % (Auto) Baso % (Auto) Lymph # Wright # Eos # Baso # Seg Neutrophils % Monocytes % (Manual) Monocytes # (Manual) D-Dimer ABG pH ABG pO2 ABG HCO3 ABG O2 Saturation ABG Base Excess ABG Hemoglobin Oxyhemoglobin Sodium Potassium Chloride Carbon Dioxide BUN Creatinine Glucose POC Glucose 256 H 266 H 248 H Lactic Acid Calcium Magnesium AST ALT Lactate Dehydrogenase Total Creatine Kinase C-Reactive Protein Total Protein Albumin Free T4 Urine WBC (Auto) Urine Total Protein Digoxin Salicylates Acetaminophen 01/01/20 01/01/20 01/01/20 04:19 06:56 10:52 WBC RBC Hgb Hct MCV MCH MCHC RDW Plt Count Lymph % (Auto) Wright % (Auto) Eos % (Auto) Baso % (Auto) Lymph # Wright # Eos # Baso # Seg Neutrophils % Monocytes % (Manual) Monocytes # (Manual) D-Dimer ABG pH ABG pO2 90.7 H ABG HCO3 29.1 H ABG O2 Saturation ABG Base Excess 3.8 H ABG Hemoglobin 8.1 L Oxyhemoglobin 94.5 L Sodium Potassium Chloride Carbon Dioxide BUN Creatinine Glucose POC Glucose 303 H 244 H Lactic Acid Calcium Magnesium AST ALT Lactate Dehydrogenase Total Creatine Kinase C-Reactive Protein Total Protein Albumin Free T4 Urine WBC (Auto) Urine Total Protein Digoxin Salicylates Acetaminophen 01/01/20 01/01/20 01/01/20 13:39 14:49 18:42 WBC RBC Hgb Hct MCV MCH MCHC RDW Plt Count Lymph % (Auto) Wright % (Auto) Eos % (Auto) Baso % (Auto) Lymph # Wright # Eos # Baso # Seg Neutrophils % Monocytes % (Manual) Monocytes # (Manual) D-Dimer ABG pH ABG pO2 ABG HCO3 ABG O2 Saturation ABG Base Excess ABG Hemoglobin Oxyhemoglobin Sodium 147 H Potassium Chloride 107.1 H Carbon Dioxide BUN 28 H Creatinine Glucose 207 H POC Glucose 263 H 188 H Lactic Acid Calcium Magnesium AST ALT Lactate Dehydrogenase Total Creatine Kinase C-Reactive Protein Total Protein Albumin Free T4 Urine WBC (Auto) Urine Total Protein Digoxin Salicylates Acetaminophen 01/02/20 01/02/20 01/02/20 02:22 03:58 05:00 WBC RBC 3.31 L Hgb 8.0 L Hct 26.9 L MCV 81 L MCH 24 L MCHC 30 L RDW 19.4 H Plt Count Lymph % (Auto) Wright % (Auto) 9.4 H Eos % (Auto) 11.2 H Baso % (Auto) Lymph # Wright # Eos # 0.8 H Baso # Seg Neutrophils % Monocytes % (Manual) Monocytes # (Manual) D-Dimer ABG pH ABG pO2 63.0 L ABG HCO3 31.6 H ABG O2 Saturation 91.8 L ABG Base Excess 5.5 H ABG Hemoglobin 8.6 L Oxyhemoglobin 89.6 L Sodium Potassium Chloride Carbon Dioxide BUN Creatinine Glucose POC Glucose 196 H Lactic Acid Calcium Magnesium AST ALT Lactate Dehydrogenase Total Creatine Kinase C-Reactive Protein Total Protein Albumin Free T4 Urine WBC (Auto) Urine Total Protein Digoxin Salicylates Acetaminophen 01/02/20 01/02/20 01/02/20 05:40 10:26 13:57 WBC RBC Hgb Hct MCV MCH MCHC RDW Plt Count Lymph % (Auto) Wright % (Auto) Eos % (Auto) Baso % (Auto) Lymph # Wright # Eos # Baso # Seg Neutrophils % Monocytes % (Manual) Monocytes # (Manual) D-Dimer ABG pH ABG pO2 ABG HCO3 ABG O2 Saturation ABG Base Excess ABG Hemoglobin Oxyhemoglobin Sodium Potassium Chloride Carbon Dioxide BUN Creatinine Glucose POC Glucose 189 H 157 H 178 H Lactic Acid Calcium Magnesium AST ALT Lactate Dehydrogenase Total Creatine Kinase C-Reactive Protein Total Protein Albumin Free T4 Urine WBC (Auto) Urine Total Protein Digoxin Salicylates Acetaminophen 01/02/20 01/03/20 01/03/20 21:27 03:12 05:26 WBC RBC Hgb Hct MCV MCH MCHC RDW Plt Count Lymph % (Auto) Wright % (Auto) Eos % (Auto) Baso % (Auto) Lymph # Wright # Eos # Baso # Seg Neutrophils % Monocytes % (Manual) Monocytes # (Manual) D-Dimer ABG pH 7.473 H ABG pO2 109.6 H ABG HCO3 30.4 H ABG O2 Saturation ABG Base Excess 6.2 H ABG Hemoglobin 9.9 L Oxyhemoglobin Sodium Potassium Chloride Carbon Dioxide BUN Creatinine Glucose POC Glucose 131 H 133 H Lactic Acid Calcium Magnesium AST ALT Lactate Dehydrogenase Total Creatine Kinase C-Reactive Protein Total Protein Albumin Free T4 Urine WBC (Auto) Urine Total Protein Digoxin Salicylates Acetaminophen 01/03/20 01/03/20 01/03/20 05:40 05:40 15:01 WBC RBC 3.45 L Hgb 8.3 L Hct 27.3 L MCV 79 L MCH 24 L MCHC 30 L RDW 19.3 H Plt Count Lymph % (Auto) Wright % (Auto) Eos % (Auto) Baso % (Auto) Lymph # Wright # Eos # Baso # Seg Neutrophils % Monocytes % (Manual) Monocytes # (Manual) D-Dimer ABG pH ABG pO2 ABG HCO3 ABG O2 Saturation ABG Base Excess ABG Hemoglobin Oxyhemoglobin Sodium 151 H Potassium Chloride 111.8 H Carbon Dioxide 31 H BUN 37 H Creatinine 1.8 H Glucose 187 H POC Glucose 164 H Lactic Acid Calcium Magnesium AST ALT Lactate Dehydrogenase Total Creatine Kinase C-Reactive Protein Total Protein Albumin Free T4 Urine WBC (Auto) Urine Total Protein Digoxin Salicylates Acetaminophen 01/03/20 01/03/20 01/04/20 18:15 22:45 02:11 WBC RBC Hgb Hct MCV MCH MCHC RDW Plt Count Lymph % (Auto) Wright % (Auto) Eos % (Auto) Baso % (Auto) Lymph # Wright # Eos # Baso # Seg Neutrophils % Monocytes % (Manual) Monocytes # (Manual) D-Dimer ABG pH ABG pO2 ABG HCO3 ABG O2 Saturation ABG Base Excess ABG Hemoglobin Oxyhemoglobin Sodium Potassium Chloride Carbon Dioxide BUN Creatinine Glucose POC Glucose 184 H 176 H 206 H Lactic Acid Calcium Magnesium AST ALT Lactate Dehydrogenase Total Creatine Kinase C-Reactive Protein Total Protein Albumin Free T4 Urine WBC (Auto) Urine Total Protein Digoxin Salicylates Acetaminophen 01/04/20 01/04/20 01/04/20 03:16 05:15 10:53 WBC RBC Hgb Hct MCV MCH MCHC RDW Plt Count Lymph % (Auto) Wright % (Auto) Eos % (Auto) Baso % (Auto) Lymph # Wright # Eos # Baso # Seg Neutrophils % Monocytes % (Manual) Monocytes # (Manual) D-Dimer ABG pH 7.282 L ABG pO2 73.2 L ABG HCO3 ABG O2 Saturation 94.5 L ABG Base Excess -6.4 L ABG Hemoglobin 10.9 L Oxyhemoglobin 92.1 L Sodium Potassium Chloride Carbon Dioxide BUN Creatinine Glucose POC Glucose 139 H 224 H Lactic Acid Calcium Magnesium AST ALT Lactate Dehydrogenase Total Creatine Kinase C-Reactive Protein Total Protein Albumin Free T4 Urine WBC (Auto) Urine Total Protein Digoxin Salicylates Acetaminophen 01/04/20 01/04/20 01/04/20 15:47 18:05 22:07 WBC RBC Hgb Hct MCV MCH MCHC RDW Plt Count Lymph % (Auto) Wright % (Auto) Eos % (Auto) Baso % (Auto) Lymph # Wright # Eos # Baso # Seg Neutrophils % Monocytes % (Manual) Monocytes # (Manual) D-Dimer ABG pH ABG pO2 ABG HCO3 ABG O2 Saturation ABG Base Excess ABG Hemoglobin Oxyhemoglobin Sodium Potassium Chloride Carbon Dioxide BUN Creatinine Glucose POC Glucose 135 H 117 H 108 H Lactic Acid Calcium Magnesium AST ALT Lactate Dehydrogenase Total Creatine Kinase C-Reactive Protein Total Protein Albumin Free T4 Urine WBC (Auto) Urine Total Protein Digoxin Salicylates Acetaminophen 01/04/20 01/04/20 01/05/20 Unknown Unknown 02:04 WBC RBC 3.46 L Hgb 8.2 L Hct 27.8 L MCV 80 L MCH 24 L MCHC 30 L RDW 19.7 H Plt Count Lymph % (Auto) Wright % (Auto) Eos % (Auto) Baso % (Auto) Lymph # Wright # Eos # Baso # Seg Neutrophils % Monocytes % (Manual) Monocytes # (Manual) D-Dimer ABG pH ABG pO2 ABG HCO3 ABG O2 Saturation ABG Base Excess ABG Hemoglobin Oxyhemoglobin Sodium 150 H Potassium Chloride 110 H Carbon Dioxide 32 H BUN 32 H Creatinine Glucose 309 H POC Glucose 140 H Lactic Acid Calcium Magnesium AST ALT Lactate Dehydrogenase Total Creatine Kinase C-Reactive Protein Total Protein Albumin Free T4 Urine WBC (Auto) Urine Total Protein Digoxin Salicylates Acetaminophen 01/05/20 01/05/20 01/05/20 03:31 03:36 03:36 WBC RBC 3.46 L Hgb 8.4 L Hct 26.9 L MCV 78 L MCH 24 L MCHC 31 L RDW 19.0 H Plt Count Lymph % (Auto) Wright % (Auto) Eos % (Auto) Baso % (Auto) Lymph # Wright # Eos # Baso # Seg Neutrophils % Monocytes % (Manual) Monocytes # (Manual) D-Dimer ABG pH 7.454 H ABG pO2 113.0 H ABG HCO3 30.5 H ABG O2 Saturation ABG Base Excess 6.0 H ABG Hemoglobin 8.5 L Oxyhemoglobin Sodium 150 H Potassium Chloride 110.3 H Carbon Dioxide BUN 30 H Creatinine Glucose 148 H POC Glucose Lactic Acid Calcium Magnesium AST ALT Lactate Dehydrogenase Total Creatine Kinase C-Reactive Protein Total Protein Albumin Free T4 Urine WBC (Auto) Urine Total Protein Digoxin Salicylates Acetaminophen 01/05/20 01/05/20 01/05/20 05:21 09:56 11:45 WBC RBC Hgb Hct MCV MCH MCHC RDW Plt Count Lymph % (Auto) Wright % (Auto) Eos % (Auto) Baso % (Auto) Lymph # Wright # Eos # Baso # Seg Neutrophils % Monocytes % (Manual) Monocytes # (Manual) D-Dimer ABG pH ABG pO2 ABG HCO3 ABG O2 Saturation ABG Base Excess ABG Hemoglobin Oxyhemoglobin Sodium Potassium Chloride Carbon Dioxide BUN Creatinine Glucose POC Glucose 142 H 129 H 174 H Lactic Acid Calcium Magnesium AST ALT Lactate Dehydrogenase Total Creatine Kinase C-Reactive Protein Total Protein Albumin Free T4 Urine WBC (Auto) Urine Total Protein Digoxin Salicylates Acetaminophen 01/05/20 01/05/20 01/05/20 13:30 14:00 17:41 WBC RBC Hgb Hct MCV MCH MCHC RDW Plt Count Lymph % (Auto) Wright % (Auto) Eos % (Auto) Baso % (Auto) Lymph # Wright # Eos # Baso # Seg Neutrophils % Monocytes % (Manual) Monocytes # (Manual) D-Dimer ABG pH ABG pO2 ABG HCO3 ABG O2 Saturation ABG Base Excess ABG Hemoglobin Oxyhemoglobin Sodium Potassium Chloride Carbon Dioxide BUN 26 H Creatinine 1.6 H Glucose 302 H POC Glucose 168 H 136 H Lactic Acid Calcium Magnesium AST ALT Lactate Dehydrogenase Total Creatine Kinase C-Reactive Protein Total Protein Albumin Free T4 Urine WBC (Auto) Urine Total Protein Digoxin Salicylates Acetaminophen 01/05/20 01/05/20 01/06/20 20:38 23:32 03:50 WBC RBC Hgb Hct MCV MCH MCHC RDW Plt Count Lymph % (Auto) Wright % (Auto) Eos % (Auto) Baso % (Auto) Lymph # Wright # Eos # Baso # Seg Neutrophils % Monocytes % (Manual) Monocytes # (Manual) D-Dimer ABG pH ABG pO2 76.2 L ABG HCO3 30.1 H ABG O2 Saturation ABG Base Excess 5.1 H ABG Hemoglobin 9.5 L Oxyhemoglobin 93.8 L Sodium Potassium Chloride Carbon Dioxide BUN Creatinine Glucose POC Glucose 124 H 163 H Lactic Acid Calcium Magnesium AST ALT Lactate Dehydrogenase Total Creatine Kinase C-Reactive Protein Total Protein Albumin Free T4 Urine WBC (Auto) Urine Total Protein Digoxin Salicylates Acetaminophen 01/06/20 01/06/20 01/06/20 04:09 04:58 04:58 WBC RBC Hgb 8.8 L Hct 28.7 L MCV 78 L MCH 24 L MCHC 31 L RDW 18.7 H Plt Count 522 H Lymph % (Auto) Wright % (Auto) Eos % (Auto) Baso % (Auto) Lymph # Wright # Eos # Baso # Seg Neutrophils % Monocytes % (Manual) Monocytes # (Manual) D-Dimer ABG pH ABG pO2 ABG HCO3 ABG O2 Saturation ABG Base Excess ABG Hemoglobin Oxyhemoglobin Sodium 150 H D Potassium Chloride 109.3 H Carbon Dioxide BUN 25 H Creatinine Glucose 55 L POC Glucose 65 L Lactic Acid Calcium Magnesium AST ALT Lactate Dehydrogenase Total Creatine Kinase C-Reactive Protein Total Protein Albumin Free T4 Urine WBC (Auto) Urine Total Protein Digoxin Salicylates Acetaminophen 01/06/20 01/06/20 01/06/20 05:01 14:10 17:49 WBC RBC Hgb Hct MCV MCH MCHC RDW Plt Count Lymph % (Auto) Wright % (Auto) Eos % (Auto) Baso % (Auto) Lymph # Wright # Eos # Baso # Seg Neutrophils % Monocytes % (Manual) Monocytes # (Manual) D-Dimer ABG pH ABG pO2 ABG HCO3 ABG O2 Saturation ABG Base Excess ABG Hemoglobin Oxyhemoglobin Sodium Potassium Chloride Carbon Dioxide BUN Creatinine Glucose POC Glucose 60 L 119 H 131 H Lactic Acid Calcium Magnesium AST ALT Lactate Dehydrogenase Total Creatine Kinase C-Reactive Protein Total Protein Albumin Free T4 Urine WBC (Auto) Urine Total Protein Digoxin Salicylates Acetaminophen 01/06/20 01/07/20 01/07/20 21:08 02:11 05:19 WBC RBC Hgb Hct MCV MCH MCHC RDW Plt Count Lymph % (Auto) Wright % (Auto) Eos % (Auto) Baso % (Auto) Lymph # Wright # Eos # Baso # Seg Neutrophils % Monocytes % (Manual) Monocytes # (Manual) D-Dimer ABG pH ABG pO2 ABG HCO3 ABG O2 Saturation ABG Base Excess ABG Hemoglobin Oxyhemoglobin Sodium Potassium Chloride Carbon Dioxide BUN Creatinine Glucose POC Glucose 136 H 209 H 182 H Lactic Acid Calcium Magnesium AST ALT Lactate Dehydrogenase Total Creatine Kinase C-Reactive Protein Total Protein Albumin Free T4 Urine WBC (Auto) Urine Total Protein Digoxin Salicylates Acetaminophen 01/07/20 01/07/20 01/07/20 11:40 11:52 13:49 WBC RBC Hgb Hct MCV MCH MCHC RDW Plt Count Lymph % (Auto) Wright % (Auto) Eos % (Auto) Baso % (Auto) Lymph # Wright # Eos # Baso # Seg Neutrophils % Monocytes % (Manual) Monocytes # (Manual) D-Dimer ABG pH ABG pO2 ABG HCO3 ABG O2 Saturation ABG Base Excess ABG Hemoglobin Oxyhemoglobin Sodium Potassium Chloride Carbon Dioxide BUN 21 H Creatinine Glucose 190 H POC Glucose 180 H 184 H Lactic Acid Calcium Magnesium AST ALT Lactate Dehydrogenase Total Creatine Kinase C-Reactive Protein Total Protein Albumin Free T4 Urine WBC (Auto) Urine Total Protein Digoxin Salicylates Acetaminophen 01/07/20 01/07/20 01/07/20 17:54 22:19 Unknown WBC RBC Hgb Hct MCV MCH MCHC RDW Plt Count Lymph % (Auto) Wright % (Auto) Eos % (Auto) Baso % (Auto) Lymph # Wright # Eos # Baso # Seg Neutrophils % Monocytes % (Manual) Monocytes # (Manual) D-Dimer ABG pH ABG pO2 ABG HCO3 28.9 H ABG O2 Saturation ABG Base Excess 4.0 H ABG Hemoglobin 11.0 L Oxyhemoglobin 94.2 L Sodium Potassium Chloride Carbon Dioxide BUN Creatinine Glucose POC Glucose 190 H 299 H Lactic Acid Calcium Magnesium AST ALT Lactate Dehydrogenase Total Creatine Kinase C-Reactive Protein Total Protein Albumin Free T4 Urine WBC (Auto) Urine Total Protein Digoxin Salicylates Acetaminophen 01/08/20 01/08/20 01/08/20 02:45 05:26 05:27 WBC RBC Hgb Hct MCV MCH MCHC RDW Plt Count Lymph % (Auto) Wright % (Auto) Eos % (Auto) Baso % (Auto) Lymph # Wright # Eos # Baso # Seg Neutrophils % Monocytes % (Manual) Monocytes # (Manual) D-Dimer ABG pH ABG pO2 67.8 L ABG HCO3 26.5 H ABG O2 Saturation 93.2 L ABG Base Excess ABG Hemoglobin 8.1 L Oxyhemoglobin 90.4 L Sodium Potassium Chloride Carbon Dioxide BUN Creatinine Glucose POC Glucose 245 H 346 H Lactic Acid Calcium Magnesium AST ALT Lactate Dehydrogenase Total Creatine Kinase C-Reactive Protein Total Protein Albumin Free T4 Urine WBC (Auto) Urine Total Protein Digoxin Salicylates Acetaminophen 01/08/20 01/08/20 01/08/20 08:03 08:03 10:33 WBC RBC 3.14 L Hgb 7.6 L Hct 24.3 L MCV 77 L MCH 24 L MCHC 31 L RDW 18.3 H Plt Count 509 H Lymph % (Auto) Wright % (Auto) Eos % (Auto) Baso % (Auto) Lymph # Wright # Eos # Baso # Seg Neutrophils % Monocytes % (Manual) Monocytes # (Manual) D-Dimer ABG pH ABG pO2 ABG HCO3 ABG O2 Saturation ABG Base Excess ABG Hemoglobin Oxyhemoglobin Sodium 132 L D Potassium Chloride 94.7 L Carbon Dioxide BUN 22 H Creatinine Glucose 284 H POC Glucose 275 H Lactic Acid Calcium Magnesium AST ALT Lactate Dehydrogenase Total Creatine Kinase C-Reactive Protein Total Protein Albumin Free T4 Urine WBC (Auto) Urine Total Protein Digoxin Salicylates Acetaminophen 01/08/20 01/08/20 01/08/20 13:34 17:24 21:49 WBC RBC Hgb Hct MCV MCH MCHC RDW Plt Count Lymph % (Auto) Wright % (Auto) Eos % (Auto) Baso % (Auto) Lymph # Wright # Eos # Baso # Seg Neutrophils % Monocytes % (Manual) Monocytes # (Manual) D-Dimer ABG pH ABG pO2 ABG HCO3 ABG O2 Saturation ABG Base Excess ABG Hemoglobin Oxyhemoglobin Sodium Potassium Chloride Carbon Dioxide BUN Creatinine Glucose POC Glucose 273 H 294 H 265 H Lactic Acid Calcium Magnesium AST ALT Lactate Dehydrogenase Total Creatine Kinase C-Reactive Protein Total Protein Albumin Free T4 Urine WBC (Auto) Urine Total Protein Digoxin Salicylates Acetaminophen 01/09/20 01/09/20 01/09/20 00:13 03:45 05:55 WBC RBC Hgb Hct MCV MCH MCHC RDW Plt Count Lymph % (Auto) Wright % (Auto) Eos % (Auto) Baso % (Auto) Lymph # [place] # Eos # Baso # Seg Neutrophils % Monocytes % (Manual) Monocytes # (Manual) D-Dimer ABG pH ABG pO2 ABG HCO3 ABG O2 Saturation ABG Base Excess ABG Hemoglobin Oxyhemoglobin Sodium Potassium Chloride Carbon Dioxide BUN Creatinine Glucose POC Glucose 251 H 346 H 300 H Lactic Acid Calcium Magnesium AST ALT Lactate Dehydrogenase Total Creatine Kinase C-Reactive Protein Total Protein Albumin Free T4 Urine WBC (Auto) Urine Total Protein Digoxin Salicylates Acetaminophen 01/09/20 01/09/20 01/09/20 08:15 09:31 12:04 WBC RBC Hgb Hct MCV MCH MCHC RDW Plt Count Lymph % (Auto) [place] % (Auto) Eos % (Auto) Baso % (Auto) Lymph # [place] # Eos # Baso # Seg Neutrophils % Monocytes % (Manual) Monocytes # (Manual) D-Dimer ABG pH ABG pO2 ABG HCO3 ABG O2 Saturation ABG Base Excess ABG Hemoglobin Oxyhemoglobin Sodium 134 L Potassium Chloride 97.6 L Carbon Dioxide BUN 25 H Creatinine Glucose 240 H POC Glucose 191 H 230 H Lactic Acid Calcium Magnesium AST ALT Lactate Dehydrogenase Total Creatine Kinase C-Reactive Protein Total Protein Albumin Free T4 Urine WBC (Auto) Urine Total Protein Digoxin Salicylates Acetaminophen 01/09/20 01/09/20 01/09/20 13:46 17:31 22:28 WBC RBC Hgb Hct MCV MCH MCHC RDW Plt Count Lymph % (Auto) [place] % (Auto) Eos % (Auto) Baso % (Auto) Lymph # [place] # Eos # Baso # Seg Neutrophils % Monocytes % (Manual) Monocytes # (Manual) D-Dimer ABG pH ABG pO2 ABG HCO3 ABG O2 Saturation ABG Base Excess ABG Hemoglobin Oxyhemoglobin Sodium Potassium Chloride Carbon Dioxide BUN Creatinine Glucose POC Glucose 211 H 260 H 223 H Lactic Acid Calcium Magnesium AST ALT Lactate Dehydrogenase Total Creatine Kinase C-Reactive Protein Total Protein Albumin Free T4 Urine WBC (Auto) Urine Total Protein Digoxin Salicylates Acetaminophen 01/10/20 01/10/20 01/10/20 02:16 04:20 05:55 WBC RBC Hgb Hct MCV MCH MCHC RDW Plt Count Lymph % (Auto) [place] % (Auto) Eos % (Auto) Baso % (Auto) Lymph # [place] # Eos # Baso # Seg Neutrophils % Monocytes % (Manual) Monocytes # (Manual) D-Dimer ABG pH ABG pO2 95.3 H ABG HCO3 27.8 H ABG O2 Saturation ABG Base Excess ABG Hemoglobin 8.3 L Oxyhemoglobin Sodium Potassium Chloride Carbon Dioxide BUN Creatinine Glucose POC Glucose 219 H 245 H Lactic Acid Calcium Magnesium AST ALT Lactate Dehydrogenase Total Creatine Kinase C-Reactive Protein Total Protein Albumin Free T4 Urine WBC (Auto) Urine Total Protein Digoxin Salicylates Acetaminophen 01/10/20 01/10/20 01/10/20 10:38 15:08 15:45 WBC RBC Hgb Hct MCV MCH MCHC RDW Plt Count Lymph % (Auto) [place] % (Auto) Eos % (Auto) Baso % (Auto) Lymph # [place] # Eos # Baso # Seg Neutrophils % Monocytes % (Manual) Monocytes # (Manual) D-Dimer ABG pH ABG pO2 ABG HCO3 ABG O2 Saturation ABG Base Excess ABG Hemoglobin Oxyhemoglobin Sodium Potassium Chloride Carbon Dioxide BUN Creatinine Glucose POC Glucose 268 H 246 H 238 H Lactic Acid Calcium Magnesium AST ALT Lactate Dehydrogenase Total Creatine Kinase C-Reactive Protein Total Protein Albumin Free T4 Urine WBC (Auto) Urine Total Protein Digoxin Salicylates Acetaminophen 01/10/20 01/10/20 01/10/20 18:00 21:09 22:48 WBC RBC Hgb Hct MCV MCH MCHC RDW Plt Count Lymph % (Auto) [place] % (Auto) Eos % (Auto) Baso % (Auto) Lymph # [place] # Eos # Baso # Seg Neutrophils % Monocytes % (Manual) Monocytes # (Manual) D-Dimer ABG pH ABG pO2 ABG HCO3 ABG O2 Saturation ABG Base Excess ABG Hemoglobin Oxyhemoglobin Sodium Potassium Chloride Carbon Dioxide BUN Creatinine Glucose POC Glucose 187 H 176 H 189 H Lactic Acid Calcium Magnesium AST ALT Lactate Dehydrogenase Total Creatine Kinase C-Reactive Protein Total Protein Albumin Free T4 Urine WBC (Auto) Urine Total Protein Digoxin Salicylates Acetaminophen 01/11/20 01/11/20 01/11/20 03:07 05:45 05:45 WBC RBC 3.15 L Hgb 7.7 L Hct 24.9 L MCV 79 L MCH 24 L MCHC 31 L RDW 18.7 H Plt Count 667 H Lymph % (Auto) [place] % (Auto) Eos % (Auto) Baso % (Auto) Lymph # [place] # Eos # Baso # Seg Neutrophils % Monocytes % (Manual) Monocytes # (Manual) D-Dimer ABG pH ABG pO2 ABG HCO3 ABG O2 Saturation ABG Base Excess ABG Hemoglobin Oxyhemoglobin Sodium 148 H D Potassium 5.1 H Chloride 111.9 H Carbon Dioxide BUN 26 H Creatinine Glucose 236 H POC Glucose 253 H Lactic Acid Calcium Magnesium AST 67 H ALT Lactate Dehydrogenase Total Creatine Kinase C-Reactive Protein Total Protein 5.9 L Albumin 2.8 L Free T4 Urine WBC (Auto) Urine Total Protein Digoxin Salicylates Acetaminophen 01/11/20 01/11/20 01/11/20 06:10 12:59 14:22 WBC RBC Hgb Hct MCV MCH MCHC RDW Plt Count Lymph % (Auto) [place] % (Auto) Eos % (Auto) Baso % (Auto) Lymph # [place] # Eos # Baso # Seg Neutrophils % Monocytes % (Manual) Monocytes # (Manual) D-Dimer ABG pH ABG pO2 ABG HCO3 ABG O2 Saturation ABG Base Excess ABG Hemoglobin Oxyhemoglobin Sodium Potassium Chloride Carbon Dioxide BUN Creatinine Glucose POC Glucose 261 H 234 H 220 H Lactic Acid Calcium Magnesium AST ALT Lactate Dehydrogenase Total Creatine Kinase C-Reactive Protein Total Protein Albumin Free T4 Urine WBC (Auto) Urine Total Protein Digoxin Salicylates Acetaminophen 01/11/20 01/11/20 01/12/20 17:18 21:20 00:45 WBC RBC Hgb Hct MCV MCH MCHC RDW Plt Count Lymph % (Auto) [place] % (Auto) Eos % (Auto) Baso % (Auto) Lymph # [place] # Eos # Baso # Seg Neutrophils % Monocytes % (Manual) Monocytes # (Manual) D-Dimer ABG pH ABG pO2 ABG HCO3 ABG O2 Saturation ABG Base Excess ABG Hemoglobin Oxyhemoglobin Sodium Potassium Chloride Carbon Dioxide BUN Creatinine Glucose POC Glucose 264 H 299 H 289 H Lactic Acid Calcium Magnesium AST ALT Lactate Dehydrogenase Total Creatine Kinase C-Reactive Protein Total Protein Albumin Free T4 Urine WBC (Auto) Urine Total Protein Digoxin Salicylates Acetaminophen 01/12/20 01/12/20 01/12/20 04:35 06:10 11:29 WBC RBC Hgb Hct MCV MCH MCHC RDW Plt Count Lymph % (Auto) [place] % (Auto) Eos % (Auto) Baso % (Auto) Lymph # [place] # Eos # Baso # Seg Neutrophils % Monocytes % (Manual) Monocytes # (Manual) D-Dimer ABG pH ABG pO2 ABG HCO3 ABG O2 Saturation ABG Base Excess ABG Hemoglobin Oxyhemoglobin Sodium Potassium Chloride Carbon Dioxide BUN Creatinine Glucose POC Glucose 187 H 194 H 213 H Lactic Acid Calcium Magnesium AST ALT Lactate Dehydrogenase Total Creatine Kinase C-Reactive Protein Total Protein Albumin Free T4 Urine WBC (Auto) Urine Total Protein Digoxin Salicylates Acetaminophen 01/12/20 01/12/20 01/12/20 14:40 18:50 21:34 WBC RBC Hgb Hct MCV MCH MCHC RDW Plt Count Lymph % (Auto) [place] % (Auto) Eos % (Auto) Baso % (Auto) Lymph # [place] # Eos # Baso # Seg Neutrophils % Monocytes % (Manual) Monocytes # (Manual) D-Dimer ABG pH ABG pO2 ABG HCO3 ABG O2 Saturation ABG Base Excess ABG Hemoglobin Oxyhemoglobin Sodium Potassium Chloride Carbon Dioxide BUN Creatinine Glucose POC Glucose 288 H 292 H 147 H Lactic Acid Calcium Magnesium AST ALT Lactate Dehydrogenase Total Creatine Kinase C-Reactive Protein Total Protein Albumin Free T4 Urine WBC (Auto) Urine Total Protein Digoxin Salicylates Acetaminophen 01/12/20 01/13/20 01/13/20 23:16 04:00 05:27 WBC RBC Hgb Hct MCV MCH MCHC RDW Plt Count Lymph % (Auto) Wright % (Auto) Eos % (Auto) Baso % (Auto) Lymph # [place] # Eos # Baso # Seg Neutrophils % Monocytes % (Manual) Monocytes # (Manual) D-Dimer ABG pH ABG pO2 ABG HCO3 ABG O2 Saturation ABG Base Excess ABG Hemoglobin Oxyhemoglobin Sodium 149 H Potassium Chloride 112.4 H Carbon Dioxide 32 H BUN 28 H Creatinine Glucose 174 H POC Glucose 122 H 143 H Lactic Acid Calcium Magnesium AST ALT Lactate Dehydrogenase Total Creatine Kinase C-Reactive Protein Total Protein Albumin Free T4 Urine WBC (Auto) Urine Total Protein Digoxin Salicylates Acetaminophen 01/13/20 01/13/20 01/13/20 10:24 13:34 15:10 WBC RBC Hgb Hct MCV MCH MCHC RDW Plt Count Lymph % (Auto) Wright % (Auto) Eos % (Auto) Baso % (Auto) Lymph # [place] # Eos # Baso # Seg Neutrophils % Monocytes % (Manual) Monocytes # (Manual) D-Dimer ABG pH 7.223 L ABG pO2 ABG HCO3 33.1 H ABG O2 Saturation 94.7 L ABG Base Excess 4.2 H ABG Hemoglobin 8.5 L Oxyhemoglobin 92.1 L Sodium Potassium Chloride Carbon Dioxide BUN Creatinine Glucose POC Glucose 172 H 151 H Lactic Acid Calcium Magnesium AST ALT Lactate Dehydrogenase Total Creatine Kinase C-Reactive Protein Total Protein Albumin Free T4 Urine WBC (Auto) Urine Total Protein Digoxin Salicylates Acetaminophen 01/13/20 01/13/20 01/13/20 17:59 20:37 22:17 WBC RBC Hgb Hct MCV MCH MCHC RDW Plt Count Lymph % (Auto) Wright % (Auto) Eos % (Auto) Baso % (Auto) Lymph # [place] # Eos # Baso # Seg Neutrophils % Monocytes % (Manual) Monocytes # (Manual) D-Dimer ABG pH ABG pO2 ABG HCO3 ABG O2 Saturation ABG Base Excess ABG Hemoglobin Oxyhemoglobin Sodium Potassium Chloride Carbon Dioxide BUN Creatinine Glucose POC Glucose 114 H 152 H Lactic Acid Calcium Magnesium AST ALT Lactate Dehydrogenase Total Creatine Kinase C-Reactive Protein Total Protein Albumin Free T4 0.63 L Urine WBC (Auto) Urine Total Protein Digoxin Salicylates Acetaminophen 01/13/20 01/14/20 01/14/20 Unknown 02:10 05:20 WBC RBC 3.39 L Hgb 8.1 L Hct 28.4 L MCV MCH 24 L MCHC 29 L RDW 19.9 H Plt Count 713 H Lymph % (Auto) Wright % (Auto) 12.7 H Eos % (Auto) Baso % (Auto) 1.9 H Lymph # Wright # 1.3 H Eos # Baso # 0.2 H Seg Neutrophils % Monocytes % (Manual) Monocytes # (Manual) D-Dimer ABG pH ABG pO2 ABG HCO3 ABG O2 Saturation ABG Base Excess ABG Hemoglobin Oxyhemoglobin Sodium Potassium Chloride Carbon Dioxide BUN Creatinine Glucose POC Glucose 151 H 157 H Lactic Acid Calcium Magnesium AST ALT Lactate Dehydrogenase Total Creatine Kinase C-Reactive Protein Total Protein Albumin Free T4 Urine WBC (Auto) Urine Total Protein Digoxin Salicylates Acetaminophen 01/14/20 01/14/20 01/14/20 11:49 14:56 18:03 WBC RBC Hgb Hct MCV MCH MCHC RDW Plt Count Lymph % (Auto) Wright % (Auto) Eos % (Auto) Baso % (Auto) Lymph # [place] # Eos # Baso # Seg Neutrophils % Monocytes % (Manual) Monocytes # (Manual) D-Dimer ABG pH ABG pO2 ABG HCO3 ABG O2 Saturation ABG Base Excess ABG Hemoglobin Oxyhemoglobin Sodium Potassium Chloride Carbon Dioxide BUN Creatinine Glucose POC Glucose 139 H 112 H 134 H Lactic Acid Calcium Magnesium AST ALT Lactate Dehydrogenase Total Creatine Kinase C-Reactive Protein Total Protein Albumin Free T4 Urine WBC (Auto) Urine Total Protein Digoxin Salicylates Acetaminophen 01/14/20 01/15/20 01/15/20 22:03 02:21 05:28 WBC RBC Hgb Hct MCV MCH MCHC RDW Plt Count Lymph % (Auto) Wright % (Auto) Eos % (Auto) Baso % (Auto) Lymph # [place] # Eos # Baso # Seg Neutrophils % Monocytes % (Manual) Monocytes # (Manual) D-Dimer ABG pH ABG pO2 ABG HCO3 ABG O2 Saturation ABG Base Excess ABG Hemoglobin Oxyhemoglobin Sodium Potassium Chloride Carbon Dioxide BUN Creatinine Glucose POC Glucose 173 H 129 H 127 H Lactic Acid Calcium Magnesium AST ALT Lactate Dehydrogenase Total Creatine Kinase C-Reactive Protein Total Protein Albumin Free T4 Urine WBC (Auto) Urine Total Protein Digoxin Salicylates Acetaminophen 01/15/20 10:43 WBC RBC Hgb Hct MCV MCH MCHC RDW Plt Count Lymph % (Auto) Wright % (Auto) Eos % (Auto) Baso % (Auto) Lymph # [place] # Eos # Baso # Seg Neutrophils % Monocytes % (Manual) Monocytes # (Manual) D-Dimer ABG pH ABG pO2 ABG HCO3 ABG O2 Saturation ABG Base Excess ABG Hemoglobin Oxyhemoglobin Sodium Potassium Chloride Carbon Dioxide BUN Creatinine Glucose POC Glucose 150 H Lactic Acid Calcium Magnesium AST ALT Lactate Dehydrogenase Total Creatine Kinase C-Reactive Protein Total Protein Albumin Free T4 Urine WBC (Auto) Urine Total Protein Digoxin Salicylates Acetaminophen Allied health notes reviewed: nursing
[2020-01-15] MEDS: POLYETHYLENE GLYCOL 3350 17 GM POWDER PO SCH (21:36)
[2020-01-16] MEDS: INSULIN GLARGINE 100 UNITS/ML SUB-Q SCH ×3 (00:43→22:05)
[2020-01-16] MEDS: INSULIN LISPRO 100 UNIT/ML SUB-Q SCH ×6 (01:59→22:06)
[2020-01-16] MEDS: LEVOTHYROXINE 88 MCG TAB PO SCH (05:48)
[2020-01-16 06:14] LABS: Basophils # (Auto) 0.1 K/mm3 (0.0-0.1); Eosinophils # (Auto) 0.9 K/mm3 (0.0-0.4); Hematocrit 26.2 % (35.5-45.6); Hemoglobin 7.9 gm/dl (11.8-15.2); Lymphocytes # (Auto) 1.1 K/mm3 (1.2-5.4); Lymphocytes % (Auto) 12.9 % (13.4-35.0); Mean Corpuscular HGB Conc 30 % (32-34); Mean Corpuscular Volume 82 fl (84-94); Monocytes # (Auto) 0.9 K/mm3 (0.0-0.8); Monocytes % (Auto) 11.2 % (0.0-7.3); Platelet Count 466 K/mm3 (140-440); Red Blood Count 3.19 M/mm3 (3.65-5.03)
[2020-01-16 06:21] LABS: Red Cell Distribution Width 20.1 % (13.2-15.2)
[2020-01-16 06:30] LABS: BUN/Creatinine Ratio 33; Blood Urea Nitrogen 23 mg/dL (9-20); Calcium 8.8 mg/dL (8.4-10.2); Hemolysis Index 0
[2020-01-16] MEDS: DOPamine/D5W 800 MG/250 ML 800 MG/250 ML BAG IV SCH (09:00)
[2020-01-16] MEDS: fentaNYL DRIP Premix 2,000 MCG/100 ML BAG IV SCH ×3 (09:08→22:54)
--- NOTE | 2020-01-16 09:21 | Progress Note ---
Assessment and Plan 1. Sinus bradycardia 2. Respiratory failure intubated on mechanical ventilator 3. Community-acquired lobar pneumonia 4. Positive MRSA sputum Plan Cardiac díaz stable continue present low-dose dopamine. Wean off mechanical ventilator as tolerated. Subjective Date of service: 01/16/20 Principal diagnosis: Ac. Hypoxemic Resp Failure; Septic Shock; Magdiel. PNA; PUI COVID-19; CHF; JOE Interval history: Intubated on mechanical ventilator Objective Vital Signs Temp Pulse Pulse Pulse Resp Resp BP 01/16/20 06:00 64 14 136/70 01/16/20 05:46 58 L 14 112/58 01/16/20 05:30 67 15 134/67 01/16/20 05:15 65 13 114/58 01/16/20 05:00 59 L 14 113/59 01/16/20 04:45 52 L 18 129/61 01/16/20 04:30 57 L 15 129/61 01/16/20 04:15 58 L 14 127/68 01/16/20 04:14 64 129/82 01/16/20 04:00 97.3 F L 53 L 55 L 17 129/82 01/16/20 03:45 61 13 114/63 01/16/20 03:30 59 L 14 110/52 01/16/20 03:15 67 13 117/61 01/16/20 03:00 54 L 14 131/49 01/16/20 02:45 71 12 126/70 01/16/20 02:30 64 14 111/55 01/16/20 02:16 61 14 127/57 01/16/20 02:00 62 9 L 145/62 01/16/20 01:45 56 L 15 136/56 01/16/20 01:30 53 L 15 128/56 01/16/20 01:16 13 56/36 01/16/20 01:00 54 L 13 129/63 01/16/20 00:45 64 14 121/70 01/16/20 00:30 66 69 14 108/66 01/16/20 00:20 69 01/16/20 00:15 65 14 110/64 01/16/20 00:12 69 100/62 01/16/20 00:00 98.0 F 70 14 100/62 01/15/20 23:45 62 14 108/57 01/15/20 23:30 65 14 108/66 01/15/20 23:18 77 14 115/70 01/15/20 23:15 74 14 115/70 01/15/20 23:00 88 14 118/73 01/15/20 22:45 86 14 98/57 01/15/20 22:30 77 14 102/60 01/15/20 22:16 79 14 105/59 01/15/20 22:00 76 14 120/68 01/15/20 21:45 71 14 122/68 01/15/20 21:30 73 13 140/83 01/15/20 21:15 98 H 12 117/66 01/15/20 21:00 93 H 15 140/74 01/15/20 20:45 89 17 140/83 01/15/20 20:36 78 24 01/15/20 20:31 80 127/64 01/15/20 20:30 63 13 127/64 01/15/20 20:15 76 14 126/71 01/15/20 20:00 97.6 F 67 19 108/60 01/15/20 19:46 70 11 L 108/60 01/15/20 19:30 63 17 128/62 01/15/20 19:15 57 L 16 108/60 01/15/20 19:00 60 16 117/60 01/15/20 18:45 68 14 119/65 01/15/20 18:30 55 L 14 107/56 01/15/20 18:15 63 15 125/59 01/15/20 18:00 58 L 14 128/61 01/15/20 17:45 59 L 14 113/51 01/15/20 17:30 59 L 14 108/55 01/15/20 17:15 59 L 14 104/50 01/15/20 17:00 65 14 117/54 01/15/20 16:45 61 15 102/56 01/15/20 16:30 58 L 14 103/55 01/15/20 16:15 72 14 106/52 01/15/20 16:00 98.5 F 74 23 106/52 01/15/20 15:45 57 L 26 H 102/52 01/15/20 15:30 61 25 H 103/49 01/15/20 15:15 59 L 25 H 96/47 01/15/20 15:00 62 23 100/50 01/15/20 14:45 48 L 21 111/45 01/15/20 14:30 54 L 21 151/72 01/15/20 14:15 66 22 151/72 01/15/20 14:00 79 19 144/78 01/15/20 13:45 79 22 138/72 01/15/20 13:30 74 20 123/66 01/15/20 13:16 60 24 01/15/20 13:15 73 25 H 131/65 01/15/20 13:00 69 26 H 115/64 01/15/20 12:46 58 L 16 124/55 01/15/20 12:30 54 L 21 144/62 01/15/20 12:15 93 H 21 141/84 01/15/20 12:00 98.5 F 62 63 23 131/55 01/15/20 11:45 48 L 22 132/56 01/15/20 11:30 53 L 18 151/58 01/15/20 11:16 48 L 0 L 150/63 01/15/20 11:00 58 L 26 H 150/63 01/15/20 10:46 58 L 28 H 150/63 01/15/20 10:30 36 L 10 L 150/63 01/15/20 10:16 55 L 9 L 150/63 01/15/20 10:00 50 L 12 150/63 01/15/20 09:46 54 L 9 L 151/75 01/15/20 09:30 65 14 141/84 Pulse Ox 01/16/20 06:00 97 01/16/20 05:46 96 01/16/20 05:30 96 01/16/20 05:15 96 01/16/20 05:00 95 01/16/20 04:45 95 01/16/20 04:30 95 01/16/20 04:15 100 01/16/20 04:14 95 01/16/20 04:00 97 01/16/20 03:45 95 01/16/20 03:30 93 01/16/20 03:15 95 01/16/20 03:00 97 01/16/20 02:45 97 01/16/20 02:30 97 01/16/20 02:16 100 01/16/20 02:00 98 01/16/20 01:45 96 01/16/20 01:30 97 01/16/20 01:16 89 01/16/20 01:00 95 01/16/20 00:45 99 01/16/20 00:30 100 01/16/20 00:20 01/16/20 00:15 100 01/16/20 00:12 100 01/16/20 00:00 100 01/15/20 23:45 100 01/15/20 23:30 100 01/15/20 23:18 100 01/15/20 23:15 100 01/15/20 23:00 100 01/15/20 22:45 100 01/15/20 22:30 100 01/15/20 22:16 100 01/15/20 22:00 100 01/15/20 21:45 99 01/15/20 21:30 97 01/15/20 21:15 100 01/15/20 21:00 100 01/15/20 20:45 100 01/15/20 20:36 01/15/20 20:31 100 01/15/20 20:30 100 01/15/20 20:15 99 01/15/20 20:00 97 01/15/20 19:46 96 01/15/20 19:30 98 01/15/20 19:15 97 01/15/20 19:00 98 01/15/20 18:45 97 01/15/20 18:30 97 01/15/20 18:15 96 01/15/20 18:00 96 01/15/20 17:45 98 01/15/20 17:30 96 01/15/20 17:15 95 01/15/20 17:00 98 01/15/20 16:45 94 01/15/20 16:30 96 01/15/20 16:15 96 01/15/20 16:00 96 01/15/20 15:45 94 01/15/20 15:30 94 01/15/20 15:15 94 01/15/20 15:00 93 01/15/20 14:45 94 01/15/20 14:30 94 01/15/20 14:15 100 01/15/20 14:00 100 01/15/20 13:45 99 01/15/20 13:30 98 01/15/20 13:16 01/15/20 13:15 99 01/15/20 13:00 98 01/15/20 12:46 96 01/15/20 12:30 95 01/15/20 12:15 94 01/15/20 12:00 80 L 01/15/20 11:45 96 01/15/20 11:30 96 01/15/20 11:16 95 01/15/20 11:00 97 01/15/20 10:46 96 01/15/20 10:30 96 01/15/20 10:16 97 01/15/20 10:00 96 01/15/20 09:46 99 01/15/20 09:30 98 - Physical Examination General: Other (intubated on the vent) HEENT: Positive: PERRL Neck: Positive: neck supple Cardiac: Positive: Regular Rate, S1/S2, PMI, Laterally Displaced. Negative: S3, S4 Lungs: Positive: clear to auscultation, No Wheeze, Rales, Rhonchi Neuro: Positive: Other (Intubated, on the vent) Abdomen: Positive: Soft Skin: Positive: Clear Extremities: Absent: edema - Labs and Meds CBC 01/16/20 Range/Units 06:00 WBC 8.4 (4.5-11.0) K/mm3 RBC 3.19 L (3.65-5.03) M/mm3 Hgb 7.9 L (11.8-15.2) gm/dl Hct 26.2 L (35.5-45.6) % Plt Count 466 H (140-440) K/mm3 Lymph # 1.1 L (1.2-5.4) K/mm3 [place] # 0.9 H (0.0-0.8) K/mm3 Eos # 0.9 H (0.0-0.4) K/mm3 Baso # 0.1 (0.0-0.1) K/mm3 Comprehensive Metabolic Panel 01/16/20 Range/Units 06:00 Sodium 152 H (137-145) mmol/L Potassium 4.6 (3.6-5.0) mmol/L Chloride 110.2 H (98-107) mmol/L Carbon Dioxide 36 H (22-30) mmol/L BUN 23 H (9-20) mg/dL Creatinine 0.7 L (0.8-1.5) mg/dL Glucose 161 H (75-100) mg/dL Calcium 8.8 (8.4-10.2) mg/dL - Allied health notes Allied health notes reviewed: nursing
--- NOTE | 2020-01-16 09:37 | Progress Note ---
Assessment and Plan Acute Hypoxemic Respiratory Failure Severe Sepsis with Shock Bilateral Pneumonia Bradycardia JAGDEEP secondary to ATN, non oliguric Hypernatremia Morbid Obesity H/O CHF JOE - Continue with dopamine, monitor bradycardia. -CXR and ABG prn - Continue Free water at 250 cc q4 and hypotonic solutions for hypernatremia -Start D5 water at 50ml/hour, worsening hypernatremia -Continue to monitor off antibiotics, trend temperature curve and WCC -Tracheostomy and PEG placement- sisters are agreeable - planned for Friday -Continue with bowel regimen -Daily SAT and SBT assessment as tolerated - Continue care as below otherwise - accuchecks with glycemic control per SSI (While critically ill target blood glucose of 140-180 mg/dL; avoid hypoglycemia) - sedation for target RASS 0 to -1 - continue to wean supplemental oxygen for target O2 sat's > 92% - continue bronchodilators with pulmonary hygiene per RT - VAP bundle addressed - lung protective strategies - wean per pulmonary driven protocols otherwise - continue to avoid benzodiazepines, reduce the possibility of delirium - prn analgesia per CPOT score - Maintenance of sleep-wake cycle - continue to avoid benzodiazepines, reduce the possibility of delirium - continue enteral nutritional support at goal rate as tolerated - G.I. & VTE prophylaxis - PT/OT/ROM exercises - continue mobility protocols for pressure ulcer prophylaxis - repeat COVID-19 test negative - continue aspiration precautions - continue accuchecks with glycemic control per SSI (While critically ill target blood glucose of 140-180 mg/dL; avoid hypoglycemia) - Monitor hemodynamics closely - continue other care per attending / other consultants .... Re-evaluate in am & prn CONDITION: CRITICAL PROGNOSIS: GUARDED CODE STATUS: FULL CODE The high probability of a clinically significant, sudden or life-threatening deterioration of the [respiratory, cardiovascular, GI & neurologic] system(s) required my full and direct attention, intervention and personal management. The aggregate critical care time was [31] minutes without overlap. Time includes spent on; [x] Data Review and interpretation [x] Patient assessment and monitoring of vital signs [x] Documentation [x] Medication orders and management Subjective Date of service: 01/16/20 Principal diagnosis: Ac. Hypoxemic Resp Failure; Septic Shock; Magdiel. PNA; PUI COVID-19; CHF; JOE Interval history: Patient is seen today for: Acute Hypoxemic Respiratory Failure; Severe Sepsis with Shock; Bilateral Pneumonia; PUI COVID-19; Morbid Obesity; H/O CHF; JOE Seen and examined at bedside; 24hour events reviewed; nursing and respiratory care staff consulted; no adverse overnight events reported to me; resting peacefully in bed; remains on MVS; remains on vasopressor support dopamine at 2 mcg for bradycardia. No fevers,remains on free water flushes of 240 q4 ,on going agitation at night, trying to climb out of bed, reaching for ETT Objective Vital Signs - 12hr 01/15/20 01/15/20 01/15/20 21:45 22:00 22:16 Temperature Pulse Rate 71 76 79 Pulse Rate [ From Monitor] Respiratory 14 14 14 Rate Blood Pressure 122/68 120/68 105/59 O2 Sat by Pulse 99 100 100 Oximetry 01/15/20 01/15/20 01/15/20 22:30 22:45 23:00 Temperature Pulse Rate 77 86 88 Pulse Rate [ From Monitor] Respiratory 14 14 14 Rate Blood Pressure 102/60 98/57 118/73 O2 Sat by Pulse 100 100 100 Oximetry 01/15/20 01/15/20 01/15/20 23:15 23:18 23:30 Temperature Pulse Rate 74 77 65 Pulse Rate [ From Monitor] Respiratory 14 14 14 Rate Blood Pressure 115/70 115/70 108/66 O2 Sat by Pulse 100 100 100 Oximetry 01/15/20 01/16/20 01/16/20 23:45 00:00 00:12 Temperature 98.0 F Pulse Rate 62 70 69 Pulse Rate [ From Monitor] Respiratory 14 14 Rate Blood Pressure 108/57 100/62 100/62 O2 Sat by Pulse 100 100 100 Oximetry 01/16/20 01/16/20 01/16/20 00:15 00:20 00:30 Temperature Pulse Rate 65 69 66 Pulse Rate [ 69 From Monitor] Respiratory 14 14 Rate Blood Pressure 110/64 108/66 O2 Sat by Pulse 100 100 Oximetry 01/16/20 01/16/20 01/16/20 00:45 01:00 01:16 Temperature Pulse Rate 64 54 L Pulse Rate [ From Monitor] Respiratory 14 13 13 Rate Blood Pressure 121/70 129/63 56/36 O2 Sat by Pulse 99 95 89 Oximetry 01/16/20 01/16/20 01/16/20 01:30 01:45 02:00 Temperature Pulse Rate 53 L 56 L 62 Pulse Rate [ From Monitor] Respiratory 15 15 9 L Rate Blood Pressure 128/56 136/56 145/62 O2 Sat by Pulse 97 96 98 Oximetry 01/16/20 01/16/20 01/16/20 02:16 02:30 02:45 Temperature Pulse Rate 61 64 71 Pulse Rate [ From Monitor] Respiratory 14 14 12 Rate Blood Pressure 127/57 111/55 126/70 O2 Sat by Pulse 100 97 97 Oximetry 01/16/20 01/16/20 01/16/20 03:00 03:15 03:30 Temperature Pulse Rate 54 L 67 59 L Pulse Rate [ From Monitor] Respiratory 14 13 14 Rate Blood Pressure 131/49 117/61 110/52 O2 Sat by Pulse 97 95 93 Oximetry 01/16/20 01/16/20 01/16/20 03:45 04:00 04:14 Temperature 97.3 F L Pulse Rate 61 53 L 64 Pulse Rate [ 55 L From Monitor] Respiratory 13 17 Rate Blood Pressure 114/63 129/82 129/82 O2 Sat by Pulse 95 97 95 Oximetry 01/16/20 01/16/20 01/16/20 04:15 04:30 04:45 Temperature Pulse Rate 58 L 57 L 52 L Pulse Rate [ From Monitor] Respiratory 14 15 18 Rate Blood Pressure 127/68 129/61 129/61 O2 Sat by Pulse 100 95 95 Oximetry 01/16/20 01/16/20 01/16/20 05:00 05:15 05:30 Temperature Pulse Rate 59 L 65 67 Pulse Rate [ From Monitor] Respiratory 14 13 15 Rate Blood Pressure 113/59 114/58 134/67 O2 Sat by Pulse 95 96 96 Oximetry 01/16/20 01/16/20 01/16/20 05:46 06:00 08:00 Temperature 97.9 F Pulse Rate 58 L 64 Pulse Rate [ From Monitor] Respiratory 14 14 Rate Blood Pressure 112/58 136/70 O2 Sat by Pulse 96 97 Oximetry Constitutional: no acute distress, other (elderly obese AAM with mildly increrased respiratory effort at rest on MVS) Eyes: non-icteric ENT: oropharynx moist, other (ETT 24 cm KOLBY) Neck: supple, no lymphadenopathy, no JVD Effort: normal Ascultation: Bilateral: diminished breath sounds, rhonchi, other (diminished bibasilar air entry) Percussion: Bilateral: not dull Cardiovascular: regular rate and rhythm (Bradycardia), other (S1,S2) Gastrointestinal: normoactive bowel sounds, soft, non-tender, other (protuberant) Integumentary: rash (stasis dermatyitis) Extremities: no cyanosis, pink and warm, pulses normal, no ischemia or petechiae, edema (trace) Neurologic: pupils equal and round, other (responds to verbal and tactile stimuli) Psychiatric: other (unable to assess) CBC and BMP: 01/16/20 06:00 01/16/20 06:00 ABG, PT/INR, D-dimer: ABG ABG pH 7.223 pH Units (7.350-7.450) L 01/13/20 15:10 ABG pCO2 82.3 mm Hg 01/13/20 15:10 ABG pO2 81.4 mm Hg (80.0-90.0) 01/13/20 15:10 ABG O2 Saturation 94.7 % (95.0-99.0) L 01/13/20 15:10 PT/INR, D-dimer PT 14.0 Sec. (12.2-14.9) 12/18/19 14:45 INR 1.10 (0.87-1.13) 12/18/19 14:45 D-Dimer 534.45 ng/mlDDU (0-234) H 12/18/19 14:45 Abnormal lab findings: Abnormal Labs 12/18/19 12/18/19 12/18/19 12:23 14:45 14:45 WBC RBC Hgb 10.4 L Hct 35.2 L MCV MCH 25 L MCHC 30 L RDW 18.8 H Plt Count Lymph % (Auto) [place] % (Auto) 11.6 H Eos % (Auto) 4.8 H Baso % (Auto) Lymph # [place] # 1.0 H Eos # Baso # Seg Neutrophils % Monocytes % (Manual) Monocytes # (Manual) D-Dimer ABG pH ABG pO2 ABG HCO3 ABG O2 Saturation ABG Base Excess ABG Hemoglobin Oxyhemoglobin Sodium Potassium Chloride Carbon Dioxide BUN Creatinine Glucose POC Glucose 328 H Lactic Acid Calcium Magnesium AST ALT Lactate Dehydrogenase Total Creatine Kinase 40 L C-Reactive Protein Total Protein Albumin Free T4 Urine WBC (Auto) Urine Total Protein Digoxin Salicylates Acetaminophen 12/18/19 12/18/1920 14:45 14:45 14:45 WBC RBC Hgb Hct MCV MCH MCHC RDW Plt Count Lymph % (Auto) [place] % (Auto) Eos % (Auto) Baso % (Auto) Lymph # [place] # Eos # Baso # Seg Neutrophils % Monocytes % (Manual) Monocytes # (Manual) D-Dimer 534.45 H ABG pH ABG pO2 ABG HCO3 ABG O2 Saturation ABG Base Excess ABG Hemoglobin Oxyhemoglobin Sodium 156 H Potassium Chloride 112.3 H Carbon Dioxide 31 H BUN 32 H Creatinine Glucose 328 H POC Glucose Lactic Acid Calcium Magnesium AST ALT Lactate Dehydrogenase 235 H Total Creatine Kinase C-Reactive Protein 8.50 H Total Protein Albumin 3.6 L Free T4 Urine WBC (Auto) Urine Total Protein Digoxin 0.3 L Salicylates < 0.3 L Acetaminophen 12/18/19 12/18/19 12/18/19 14:45 14:45 16:00 WBC RBC Hgb Hct MCV MCH MCHC RDW Plt Count Lymph % (Auto) [place] % (Auto) Eos % (Auto) Baso % (Auto) Lymph # [place] # Eos # Baso # Seg Neutrophils % Monocytes % (Manual) Monocytes # (Manual) D-Dimer ABG pH ABG pO2 69.8 L ABG HCO3 31.8 H ABG O2 Saturation ABG Base Excess 5.4 H ABG Hemoglobin 10.0 L Oxyhemoglobin 92.9 L Sodium Potassium Chloride Carbon Dioxide BUN Creatinine Glucose 314 H POC Glucose Lactic Acid Calcium Magnesium AST ALT Lactate Dehydrogenase 236 H Total Creatine Kinase C-Reactive Protein 8.40 H Total Protein Albumin Free T4 Urine WBC (Auto) Urine Total Protein Digoxin Salicylates Acetaminophen < 5.0 L 12/18/19 12/18/19 12/18/19 16:35 18:30 22:56 WBC RBC Hgb Hct MCV MCH MCHC RDW Plt Count Lymph % (Auto) [place] % (Auto) Eos % (Auto) Baso % (Auto) Lymph # [place] # Eos # Baso # Seg Neutrophils % Monocytes % (Manual) Monocytes # (Manual) D-Dimer ABG pH ABG pO2 ABG HCO3 ABG O2 Saturation ABG Base Excess ABG Hemoglobin Oxyhemoglobin Sodium Potassium Chloride Carbon Dioxide BUN Creatinine Glucose POC Glucose 310 H 353 H Lactic Acid 2.50 H* Calcium Magnesium AST ALT Lactate Dehydrogenase Total Creatine Kinase C-Reactive Protein Total Protein Albumin Free T4 Urine WBC (Auto) Urine Total Protein Digoxin Salicylates Acetaminophen 12/19/19 12/19/19 12/19/19 04:13 04:13 06:00 WBC RBC Hgb 10.0 L Hct 34.2 L MCV MCH 25 L MCHC 29 L RDW 19.0 H Plt Count Lymph % (Auto) [place] % (Auto) 10.1 H Eos % (Auto) Baso % (Auto) Lymph # [place] # 1.1 H Eos # Baso # Seg Neutrophils % 71.8 H Monocytes % (Manual) Monocytes # (Manual) D-Dimer ABG pH ABG pO2 186.5 H ABG HCO3 27.8 H ABG O2 Saturation 99.1 H ABG Base Excess ABG Hemoglobin 10.4 L Oxyhemoglobin Sodium 157 H Potassium Chloride 119.1 H Carbon Dioxide BUN 26 H Creatinine Glucose 302 H POC Glucose Lactic Acid Calcium 7.9 L Magnesium AST 85 H ALT 61 H Lactate Dehydrogenase Total Creatine Kinase C-Reactive Protein Total Protein Albumin 3.0 L Free T4 Urine WBC (Auto) Urine Total Protein Digoxin Salicylates Acetaminophen 12/19/19 12/19/19 12/19/19 08:30 11:55 16:50 WBC RBC Hgb Hct MCV MCH MCHC RDW Plt Count Lymph % (Auto) [place] % (Auto) Eos % (Auto) Baso % (Auto) Lymph # [place] # Eos # Baso # Seg Neutrophils % Monocytes % (Manual) Monocytes # (Manual) D-Dimer ABG pH ABG pO2 ABG HCO3 ABG O2 Saturation ABG Base Excess ABG Hemoglobin Oxyhemoglobin Sodium Potassium Chloride Carbon Dioxide BUN Creatinine Glucose POC Glucose 264 H 251 H Lactic Acid Calcium Magnesium AST ALT Lactate Dehydrogenase Total Creatine Kinase C-Reactive Protein Total Protein Albumin Free T4 Urine WBC (Auto) 7.0 H Urine Total Protein Digoxin Salicylates Acetaminophen 12/19/19 12/19/19 12/20/19 17:41 23:42 03:35 WBC RBC Hgb Hct MCV MCH MCHC RDW Plt Count Lymph % (Auto) [place] % (Auto) Eos % (Auto) Baso % (Auto) Lymph # [place] # Eos # Baso # Seg Neutrophils % Monocytes % (Manual) Monocytes # (Manual) D-Dimer ABG pH ABG pO2 ABG HCO3 27.7 H ABG O2 Saturation ABG Base Excess ABG Hemoglobin 11.6 L Oxyhemoglobin 94.9 L Sodium Potassium Chloride Carbon Dioxide BUN Creatinine Glucose POC Glucose 180 H 205 H Lactic Acid Calcium Magnesium AST ALT Lactate Dehydrogenase Total Creatine Kinase C-Reactive Protein Total Protein Albumin Free T4 Urine WBC (Auto) Urine Total Protein Digoxin Salicylates Acetaminophen 12/20/19 12/20/19 12/20/19 04:45 04:45 05:27 WBC RBC Hgb 9.4 L Hct 31.4 L MCV MCH 25 L MCHC 30 L RDW 19.4 H Plt Count Lymph % (Auto) [place] % (Auto) 10.2 H Eos % (Auto) 6.0 H Baso % (Auto) Lymph # 0.9 L [place] # Eos # Baso # Seg Neutrophils % Monocytes % (Manual) Monocytes # (Manual) D-Dimer ABG pH ABG pO2 ABG HCO3 ABG O2 Saturation ABG Base Excess ABG Hemoglobin Oxyhemoglobin Sodium 153 H Potassium Chloride 114.6 H Carbon Dioxide BUN Creatinine Glucose 170 H POC Glucose 188 H Lactic Acid Calcium 7.9 L Magnesium AST ALT Lactate Dehydrogenase Total Creatine Kinase C-Reactive Protein Total Protein Albumin Free T4 Urine WBC (Auto) Urine Total Protein Digoxin Salicylates Acetaminophen 12/20/19 12/20/19 12/21/19 12:26 18:20 00:20 WBC RBC Hgb Hct MCV MCH MCHC RDW Plt Count Lymph % (Auto) [place] % (Auto) Eos % (Auto) Baso % (Auto) Lymph # [place] # Eos # Baso # Seg Neutrophils % Monocytes % (Manual) Monocytes # (Manual) D-Dimer ABG pH ABG pO2 ABG HCO3 ABG O2 Saturation ABG Base Excess ABG Hemoglobin Oxyhemoglobin Sodium Potassium Chloride Carbon Dioxide BUN Creatinine Glucose POC Glucose 200 H 263 H 218 H Lactic Acid Calcium Magnesium AST ALT Lactate Dehydrogenase Total Creatine Kinase C-Reactive Protein Total Protein Albumin Free T4 Urine WBC (Auto) Urine Total Protein Digoxin Salicylates Acetaminophen 12/21/19 12/21/19 12/21/19 04:38 05:26 12:35 WBC RBC Hgb Hct MCV MCH MCHC RDW Plt Count Lymph % (Auto) [place] % (Auto) Eos % (Auto) Baso % (Auto) Lymph # [place] # Eos # Baso # Seg Neutrophils % Monocytes % (Manual) Monocytes # (Manual) D-Dimer ABG pH ABG pO2 ABG HCO3 ABG O2 Saturation ABG Base Excess ABG Hemoglobin Oxyhemoglobin Sodium 149 H Potassium 3.5 L Chloride 110.5 H Carbon Dioxide BUN Creatinine Glucose 158 H POC Glucose 193 H 193 H Lactic Acid Calcium Magnesium AST ALT Lactate Dehydrogenase Total Creatine Kinase C-Reactive Protein Total Protein Albumin Free T4 Urine WBC (Auto) Urine Total Protein Digoxin Salicylates Acetaminophen 12/21/19 12/22/19 12/22/19 18:29 00:03 05:15 WBC RBC Hgb 10.3 L Hct 34.7 L MCV MCH 25 L MCHC 30 L RDW 19.4 H Plt Count Lymph % (Auto) 9.0 L [place] % (Auto) 12.3 H Eos % (Auto) 5.0 H Baso % (Auto) Lymph # 0.5 L [place] # Eos # Baso # Seg Neutrophils % 73.2 H Monocytes % (Manual) Monocytes # (Manual) D-Dimer ABG pH ABG pO2 ABG HCO3 ABG O2 Saturation ABG Base Excess ABG Hemoglobin Oxyhemoglobin Sodium Potassium Chloride Carbon Dioxide BUN Creatinine Glucose POC Glucose 186 H 143 H Lactic Acid Calcium Magnesium AST ALT Lactate Dehydrogenase Total Creatine Kinase C-Reactive Protein Total Protein Albumin Free T4 Urine WBC (Auto) Urine Total Protein Digoxin Salicylates Acetaminophen 12/22/19 12/22/19 12/22/19 05:15 06:02 12:13 WBC RBC Hgb Hct MCV MCH MCHC RDW Plt Count Lymph % (Auto) [place] % (Auto) Eos % (Auto) Baso % (Auto) Lymph # [place] # Eos # Baso # Seg Neutrophils % Monocytes % (Manual) Monocytes # (Manual) D-Dimer ABG pH ABG pO2 ABG HCO3 ABG O2 Saturation ABG Base Excess ABG Hemoglobin Oxyhemoglobin Sodium 152 H Potassium Chloride 113.5 H Carbon Dioxide BUN Creatinine Glucose 126 H POC Glucose 144 H 159 H Lactic Acid Calcium Magnesium AST ALT Lactate Dehydrogenase Total Creatine Kinase C-Reactive Protein Total Protein Albumin Free T4 Urine WBC (Auto) Urine Total Protein Digoxin Salicylates Acetaminophen 12/22/19 12/22/19 12/23/19 18:03 23:50 05:27 WBC RBC Hgb Hct MCV MCH MCHC RDW Plt Count Lymph % (Auto) [place] % (Auto) Eos % (Auto) Baso % (Auto) Lymph # [place] # Eos # Baso # Seg Neutrophils % Monocytes % (Manual) Monocytes # (Manual) D-Dimer ABG pH ABG pO2 ABG HCO3 ABG O2 Saturation ABG Base Excess ABG Hemoglobin Oxyhemoglobin Sodium Potassium Chloride Carbon Dioxide BUN Creatinine Glucose POC Glucose 140 H 227 H 185 H Lactic Acid Calcium Magnesium AST ALT Lactate Dehydrogenase Total Creatine Kinase C-Reactive Protein Total Protein Albumin Free T4 Urine WBC (Auto) Urine Total Protein Digoxin Salicylates Acetaminophen 12/23/19 12/23/19 12/23/19 12:13 16:05 16:40 WBC RBC Hgb Hct MCV MCH MCHC RDW Plt Count Lymph % (Auto) [place] % (Auto) Eos % (Auto) Baso % (Auto) Lymph # [place] # Eos # Baso # Seg Neutrophils % Monocytes % (Manual) Monocytes # (Manual) D-Dimer ABG pH 7.259 L ABG pO2 76.2 L ABG HCO3 30.6 H ABG O2 Saturation 94.6 L ABG Base Excess ABG Hemoglobin 11.5 L Oxyhemoglobin 92.2 L Sodium 163 H* D Potassium 3.4 L Chloride 120.1 H Carbon Dioxide BUN Creatinine Glucose 162 H POC Glucose 132 H Lactic Acid Calcium Magnesium AST ALT Lactate Dehydrogenase Total Creatine Kinase C-Reactive Protein Total Protein Albumin Free T4 Urine WBC (Auto) Urine Total Protein Digoxin Salicylates Acetaminophen 12/23/19 12/24/19 12/24/19 17:53 00:48 04:20 WBC RBC Hgb Hct MCV MCH MCHC RDW Plt Count Lymph % (Auto) [place] % (Auto) Eos % (Auto) Baso % (Auto) Lymph # [place] # Eos # Baso # Seg Neutrophils % Monocytes % (Manual) Monocytes # (Manual) D-Dimer ABG pH ABG pO2 ABG HCO3 30.4 H ABG O2 Saturation ABG Base Excess 3.9 H ABG Hemoglobin 10.3 L Oxyhemoglobin 94.4 L Sodium Potassium Chloride Carbon Dioxide BUN Creatinine Glucose POC Glucose 180 H 174 H Lactic Acid Calcium Magnesium AST ALT Lactate Dehydrogenase Total Creatine Kinase C-Reactive Protein Total Protein Albumin Free T4 Urine WBC (Auto) Urine Total Protein Digoxin Salicylates Acetaminophen 12/24/19 12/24/19 12/24/19 04:53 04:53 11:50 WBC RBC Hgb 9.7 L Hct 33.2 L MCV MCH 25 L MCHC 29 L RDW 20.1 H Plt Count Lymph % (Auto) [place] % (Auto) Eos % (Auto) Baso % (Auto) Lymph # [place] # Eos # Baso # Seg Neutrophils % Monocytes % (Manual) 15.0 H Monocytes # (Manual) 0.9 H D-Dimer ABG pH ABG pO2 ABG HCO3 ABG O2 Saturation ABG Base Excess ABG Hemoglobin Oxyhemoglobin Sodium 163 H* Potassium 3.2 L Chloride 122.6 H Carbon Dioxide BUN Creatinine Glucose 168 H POC Glucose 190 H Lactic Acid Calcium Magnesium AST ALT Lactate Dehydrogenase Total Creatine Kinase C-Reactive Protein Total Protein Albumin Free T4 Urine WBC (Auto) Urine Total Protein Digoxin Salicylates Acetaminophen 12/24/19 12/24/19 12/24/19 15:00 16:28 21:15 WBC RBC Hgb Hct MCV MCH MCHC RDW Plt Count Lymph % (Auto) [place] % (Auto) Eos % (Auto) Baso % (Auto) Lymph # [place] # Eos # Baso # Seg Neutrophils % Monocytes % (Manual) Monocytes # (Manual) D-Dimer ABG pH ABG pO2 ABG HCO3 ABG O2 Saturation ABG Base Excess ABG Hemoglobin Oxyhemoglobin Sodium 165 H* D 163 H* Potassium Chloride Carbon Dioxide BUN Creatinine Glucose POC Glucose 160 H Lactic Acid Calcium Magnesium AST ALT Lactate Dehydrogenase Total Creatine Kinase C-Reactive Protein Total Protein Albumin Free T4 Urine WBC (Auto) Urine Total Protein Digoxin Salicylates Acetaminophen 12/25/19 12/25/19 12/25/19 00:31 05:38 05:46 WBC RBC Hgb 9.7 L Hct 32.5 L MCV MCH 25 L MCHC 30 L RDW 19.4 H Plt Count Lymph % (Auto) [place] % (Auto) Eos % (Auto) Baso % (Auto) Lymph # [place] # Eos # Baso # Seg Neutrophils % Monocytes % (Manual) Monocytes # (Manual) D-Dimer ABG pH ABG pO2 ABG HCO3 ABG O2 Saturation ABG Base Excess ABG Hemoglobin Oxyhemoglobin Sodium Potassium Chloride Carbon Dioxide BUN Creatinine Glucose POC Glucose 182 H 194 H Lactic Acid Calcium Magnesium AST ALT Lactate Dehydrogenase Total Creatine Kinase C-Reactive Protein Total Protein Albumin Free T4 Urine WBC (Auto) Urine Total Protein Digoxin Salicylates Acetaminophen 12/25/19 12/25/19 12/25/19 05:46 11:35 11:38 WBC RBC Hgb Hct MCV MCH MCHC RDW Plt Count Lymph % (Auto) [place] % (Auto) Eos % (Auto) Baso % (Auto) Lymph # [place] # Eos # Baso # Seg Neutrophils % Monocytes % (Manual) Monocytes # (Manual) D-Dimer ABG pH 7.330 L ABG pO2 65.7 L ABG HCO3 32.6 H ABG O2 Saturation 92.5 L ABG Base Excess 5.3 H ABG Hemoglobin 10.4 L Oxyhemoglobin 90.0 L Sodium 166 H* Potassium 2.9 L* Chloride 124.5 H Carbon Dioxide BUN Creatinine Glucose 190 H POC Glucose 192 H Lactic Acid Calcium Magnesium AST ALT Lactate Dehydrogenase Total Creatine Kinase C-Reactive Protein Total Protein Albumin Free T4 Urine WBC (Auto) Urine Total Protein Digoxin Salicylates Acetaminophen 12/25/19 12/25/19 12/25/19 13:01 16:45 17:20 WBC RBC Hgb Hct MCV MCH MCHC RDW Plt Count Lymph % (Auto) [place] % (Auto) Eos % (Auto) Baso % (Auto) Lymph # [place] # Eos # Baso # Seg Neutrophils % Monocytes % (Manual) Monocytes # (Manual) D-Dimer ABG pH 7.296 L ABG pO2 101.5 H ABG HCO3 33.2 H ABG O2 Saturation ABG Base Excess 5.3 H ABG Hemoglobin 9.6 L Oxyhemoglobin 94.6 L Sodium 174 H* Potassium Chloride Carbon Dioxide BUN Creatinine Glucose POC Glucose Lactic Acid Calcium Magnesium AST ALT Lactate Dehydrogenase Total Creatine Kinase C-Reactive Protein Total Protein Albumin Free T4 Urine WBC (Auto) Urine Total Protein < 4 L Digoxin Salicylates Acetaminophen 12/25/19 12/25/19 12/26/19 17:48 18:50 00:43 WBC RBC Hgb Hct MCV MCH MCHC RDW Plt Count Lymph % (Auto) [place] % (Auto) Eos % (Auto) Baso % (Auto) Lymph # [place] # Eos # Baso # Seg Neutrophils % Monocytes % (Manual) Monocytes # (Manual) D-Dimer ABG pH ABG pO2 ABG HCO3 ABG O2 Saturation ABG Base Excess ABG Hemoglobin Oxyhemoglobin Sodium 166 H* 164 H* Potassium Chloride 127.3 H Carbon Dioxide BUN Creatinine Glucose 220 H POC Glucose 252 H Lactic Acid Calcium Magnesium AST ALT Lactate Dehydrogenase Total Creatine Kinase C-Reactive Protein Total Protein Albumin Free T4 Urine WBC (Auto) Urine Total Protein Digoxin Salicylates Acetaminophen 12/26/19 12/26/19 12/26/19 05:31 08:07 08:07 WBC 4.3 L RBC Hgb 9.6 L Hct 32.1 L MCV MCH 26 L MCHC 30 L RDW 20.5 H Plt Count Lymph % (Auto) [place] % (Auto) Eos % (Auto) Baso % (Auto) Lymph # [place] # Eos # Baso # Seg Neutrophils % Monocytes % (Manual) Monocytes # (Manual) D-Dimer ABG pH ABG pO2 ABG HCO3 ABG O2 Saturation ABG Base Excess ABG Hemoglobin Oxyhemoglobin Sodium 162 H* Potassium Chloride 122.1 H Carbon Dioxide BUN Creatinine Glucose 247 H POC Glucose 187 H Lactic Acid Calcium Magnesium AST ALT Lactate Dehydrogenase Total Creatine Kinase C-Reactive Protein Total Protein Albumin Free T4 Urine WBC (Auto) Urine Total Protein Digoxin Salicylates Acetaminophen 12/26/19 12/26/19 12/26/19 08:07 12:20 16:25 WBC RBC Hgb Hct MCV MCH MCHC RDW Plt Count Lymph % (Auto) [place] % (Auto) Eos % (Auto) Baso % (Auto) Lymph # [place] # Eos # Baso # Seg Neutrophils % Monocytes % (Manual) Monocytes # (Manual) D-Dimer ABG pH 7.290 L ABG pO2 73.2 L ABG HCO3 33.2 H ABG O2 Saturation 94.9 L ABG Base Excess 5.2 H ABG Hemoglobin 10.0 L Oxyhemoglobin 92.5 L Sodium 159 H Potassium Chloride Carbon Dioxide BUN Creatinine Glucose POC Glucose 234 H Lactic Acid Calcium Magnesium AST ALT Lactate Dehydrogenase Total Creatine Kinase C-Reactive Protein Total Protein Albumin Free T4 Urine WBC (Auto) Urine Total Protein Digoxin Salicylates Acetaminophen 12/26/19 12/26/19 12/26/19 17:33 22:35 23:30 WBC RBC Hgb Hct MCV MCH MCHC RDW Plt Count Lymph % (Auto) [place] % (Auto) Eos % (Auto) Baso % (Auto) Lymph # [place] # Eos # Baso # Seg Neutrophils % Monocytes % (Manual) Monocytes # (Manual) D-Dimer ABG pH ABG pO2 ABG HCO3 ABG O2 Saturation ABG Base Excess ABG Hemoglobin Oxyhemoglobin Sodium Potassium Chloride Carbon Dioxide BUN Creatinine Glucose POC Glucose 244 H 208 H 287 H Lactic Acid Calcium Magnesium AST ALT Lactate Dehydrogenase Total Creatine Kinase C-Reactive Protein Total Protein Albumin Free T4 Urine WBC (Auto) Urine Total Protein Digoxin Salicylates Acetaminophen 06/12/27/19 12/27/19 03:48 03:48 03:48 WBC RBC Hgb 10.1 L Hct 35.4 L MCV MCH 25 L MCHC 29 L RDW 20.1 H Plt Count Lymph % (Auto) [place] % (Auto) Eos % (Auto) Baso % (Auto) Lymph # [place] # Eos # Baso # Seg Neutrophils % Monocytes % (Manual) Monocytes # (Manual) D-Dimer ABG pH ABG pO2 ABG HCO3 ABG O2 Saturation ABG Base Excess ABG Hemoglobin Oxyhemoglobin Sodium 160 H Potassium Chloride 118.8 H Carbon Dioxide 33 H BUN Creatinine Glucose 217 H POC Glucose Lactic Acid Calcium Magnesium 2.70 H AST ALT Lactate Dehydrogenase Total Creatine Kinase C-Reactive Protein Total Protein Albumin Free T4 Urine WBC (Auto) Urine Total Protein Digoxin Salicylates Acetaminophen 12/27/19 12/27/19 12/27/19 05:50 11:58 16:05 WBC RBC Hgb Hct MCV MCH MCHC RDW Plt Count Lymph % (Auto) [place] % (Auto) Eos % (Auto) Baso % (Auto) Lymph # [place] # Eos # Baso # Seg Neutrophils % Monocytes % (Manual) Monocytes # (Manual) D-Dimer ABG pH 7.180 L* ABG pO2 73.6 L ABG HCO3 34.8 H ABG O2 Saturation 92.7 L ABG Base Excess 3.8 H ABG Hemoglobin 12.0 L Oxyhemoglobin 90.2 L Sodium Potassium Chloride Carbon Dioxide BUN Creatinine Glucose POC Glucose 224 H 218 H Lactic Acid Calcium Magnesium AST ALT Lactate Dehydrogenase Total Creatine Kinase C-Reactive Protein Total Protein Albumin Free T4 Urine WBC (Auto) Urine Total Protein Digoxin Salicylates Acetaminophen 12/27/19 12/27/19 12/27/19 18:05 19:50 21:53 WBC RBC Hgb Hct MCV MCH MCHC RDW Plt Count Lymph % (Auto) [place] % (Auto) Eos % (Auto) Baso % (Auto) Lymph # [place] # Eos # Baso # Seg Neutrophils % Monocytes % (Manual) Monocytes # (Manual) D-Dimer ABG pH 7.328 L ABG pO2 49.9 L ABG HCO3 33.3 H ABG O2 Saturation 87.1 L ABG Base Excess 5.7 H ABG Hemoglobin 11.2 L Oxyhemoglobin 84.8 L Sodium Potassium Chloride Carbon Dioxide BUN Creatinine Glucose POC Glucose 214 H 178 H Lactic Acid Calcium Magnesium AST ALT Lactate Dehydrogenase Total Creatine Kinase C-Reactive Protein Total Protein Albumin Free T4 Urine WBC (Auto) Urine Total Protein Digoxin Salicylates Acetaminophen 12/28/19 12/28/19 12/28/19 00:42 04:37 04:37 WBC RBC Hgb 9.8 L Hct 33.5 L MCV MCH 25 L MCHC 29 L RDW 21.1 H Plt Count Lymph % (Auto) [place] % (Auto) Eos % (Auto) Baso % (Auto) Lymph # [place] # Eos # Baso # Seg Neutrophils % Monocytes % (Manual) Monocytes # (Manual) D-Dimer ABG pH ABG pO2 ABG HCO3 ABG O2 Saturation ABG Base Excess ABG Hemoglobin Oxyhemoglobin Sodium 157 H Potassium 3.4 L Chloride 117.5 H Carbon Dioxide BUN Creatinine Glucose 193 H POC Glucose 157 H Lactic Acid Calcium Magnesium AST ALT Lactate Dehydrogenase Total Creatine Kinase C-Reactive Protein Total Protein Albumin Free T4 Urine WBC (Auto) Urine Total Protein Digoxin Salicylates Acetaminophen 12/28/19 12/28/19 12/28/19 04:52 05:19 12:05 WBC RBC Hgb Hct MCV MCH MCHC RDW Plt Count Lymph % (Auto) [place] % (Auto) Eos % (Auto) Baso % (Auto) Lymph # [place] # Eos # Baso # Seg Neutrophils % Monocytes % (Manual) Monocytes # (Manual) D-Dimer ABG pH ABG pO2 51.7 L ABG HCO3 28.7 H ABG O2 Saturation 89.9 L ABG Base Excess 4.1 H ABG Hemoglobin 9.7 L Oxyhemoglobin 87.7 L Sodium Potassium Chloride Carbon Dioxide BUN Creatinine Glucose POC Glucose 202 H 248 H Lactic Acid Calcium Magnesium AST ALT Lactate Dehydrogenase Total Creatine Kinase C-Reactive Protein Total Protein Albumin Free T4 Urine WBC (Auto) Urine Total Protein Digoxin Salicylates Acetaminophen 12/28/19 12/28/19 12/28/19 18:11 21:15 23:22 WBC RBC Hgb Hct MCV MCH MCHC RDW Plt Count Lymph % (Auto) [place] % (Auto) Eos % (Auto) Baso % (Auto) Lymph # [place] # Eos # Baso # Seg Neutrophils % Monocytes % (Manual) Monocytes # (Manual) D-Dimer ABG pH ABG pO2 ABG HCO3 ABG O2 Saturation ABG Base Excess ABG Hemoglobin Oxyhemoglobin Sodium Potassium Chloride Carbon Dioxide BUN Creatinine Glucose POC Glucose 226 H 217 H 227 H Lactic Acid Calcium Magnesium AST ALT Lactate Dehydrogenase Total Creatine Kinase C-Reactive Protein Total Protein Albumin Free T4 Urine WBC (Auto) Urine Total Protein Digoxin Salicylates Acetaminophen 12/29/19 12/29/19 12/29/19 04:09 04:59 04:59 WBC 11.1 H RBC Hgb 9.3 L Hct 31.1 L MCV 81 L MCH 24 L MCHC 30 L RDW 19.9 H Plt Count Lymph % (Auto) [place] % (Auto) Eos % (Auto) Baso % (Auto) Lymph # [place] # Eos # Baso # Seg Neutrophils % Monocytes % (Manual) Monocytes # (Manual) D-Dimer ABG pH 7.473 H ABG pO2 126.1 H ABG HCO3 29.2 H ABG O2 Saturation ABG Base Excess 5.1 H ABG Hemoglobin 8.4 L Oxyhemoglobin Sodium 157 H Potassium 3.2 L Chloride 118.2 H Carbon Dioxide BUN Creatinine 1.7 H Glucose 229 H POC Glucose Lactic Acid Calcium Magnesium AST ALT Lactate Dehydrogenase Total Creatine Kinase C-Reactive Protein Total Protein Albumin Free T4 Urine WBC (Auto) Urine Total Protein Digoxin Salicylates Acetaminophen 12/29/19 12/29/19 12/29/19 05:15 12:13 17:59 WBC RBC Hgb Hct MCV MCH MCHC RDW Plt Count Lymph % (Auto) [place] % (Auto) Eos % (Auto) Baso % (Auto) Lymph # [place] # Eos # Baso # Seg Neutrophils % Monocytes % (Manual) Monocytes # (Manual) D-Dimer ABG pH ABG pO2 ABG HCO3 ABG O2 Saturation ABG Base Excess ABG Hemoglobin Oxyhemoglobin Sodium Potassium Chloride Carbon Dioxide BUN Creatinine Glucose POC Glucose 221 H 392 H 365 H Lactic Acid Calcium Magnesium AST ALT Lactate Dehydrogenase Total Creatine Kinase C-Reactive Protein Total Protein Albumin Free T4 Urine WBC (Auto) Urine Total Protein Digoxin Salicylates Acetaminophen 12/29/19 12/29/19 12/30/19 20:25 23:38 04:45 WBC RBC Hgb Hct MCV MCH MCHC RDW Plt Count Lymph % (Auto) [place] % (Auto) Eos % (Auto) Baso % (Auto) Lymph # [place] # Eos # Baso # Seg Neutrophils % Monocytes % (Manual) Monocytes # (Manual) D-Dimer ABG pH 7.261 L 7.343 L ABG pO2 60.3 L 54.3 L ABG HCO3 32.1 H 30.9 H ABG O2 Saturation 87.6 L 88.3 L ABG Base Excess 3.7 H 4.0 H ABG Hemoglobin 9.7 L 11.6 L Oxyhemoglobin 85.2 L 86.0 L Sodium Potassium Chloride Carbon Dioxide BUN Creatinine Glucose POC Glucose 402 H Lactic Acid Calcium Magnesium AST ALT Lactate Dehydrogenase Total Creatine Kinase C-Reactive Protein Total Protein Albumin Free T4 Urine WBC (Auto) Urine Total Protein Digoxin Salicylates Acetaminophen 12/30/19 12/30/19 12/30/19 05:06 05:06 05:06 WBC 11.7 H RBC Hgb 9.4 L Hct 32.4 L MCV 83 L MCH 24 L MCHC 29 L RDW 20.2 H Plt Count Lymph % (Auto) [place] % (Auto) Eos % (Auto) Baso % (Auto) Lymph # [place] # Eos # Baso # Seg Neutrophils % Monocytes % (Manual) Monocytes # (Manual) D-Dimer ABG pH ABG pO2 ABG HCO3 ABG O2 Saturation ABG Base Excess ABG Hemoglobin Oxyhemoglobin Sodium 159 H Potassium 3.2 L Chloride 120.1 H Carbon Dioxide 31 H BUN Creatinine 1.9 H Glucose 404 H POC Glucose Lactic Acid Calcium Magnesium 2.60 H AST ALT Lactate Dehydrogenase Total Creatine Kinase C-Reactive Protein Total Protein Albumin Free T4 Urine WBC (Auto) Urine Total Protein Digoxin Salicylates Acetaminophen 12/30/19 12/30/19 12/30/19 06:26 12:29 13:44 WBC RBC Hgb Hct MCV MCH MCHC RDW Plt Count Lymph % (Auto) [place] % (Auto) Eos % (Auto) Baso % (Auto) Lymph # [place] # Eos # Baso # Seg Neutrophils % Monocytes % (Manual) Monocytes # (Manual) D-Dimer ABG pH ABG pO2 ABG HCO3 ABG O2 Saturation ABG Base Excess ABG Hemoglobin Oxyhemoglobin Sodium Potassium Chloride Carbon Dioxide BUN Creatinine Glucose POC Glucose 399 H 469 H > 500 H Lactic Acid Calcium Magnesium AST ALT Lactate Dehydrogenase Total Creatine Kinase C-Reactive Protein Total Protein Albumin Free T4 Urine WBC (Auto) Urine Total Protein Digoxin Salicylates Acetaminophen 12/30/19 12/30/19 12/30/19 13:51 16:32 18:05 WBC RBC Hgb Hct MCV MCH MCHC RDW Plt Count Lymph % (Auto) [place] % (Auto) Eos % (Auto) Baso % (Auto) Lymph # [place] # Eos # Baso # Seg Neutrophils % Monocytes % (Manual) Monocytes # (Manual) D-Dimer ABG pH ABG pO2 ABG HCO3 ABG O2 Saturation ABG Base Excess ABG Hemoglobin Oxyhemoglobin Sodium Potassium Chloride Carbon Dioxide BUN Creatinine Glucose POC Glucose > 500 H 445 H 429 H Lactic Acid Calcium Magnesium AST ALT Lactate Dehydrogenase Total Creatine Kinase C-Reactive Protein Total Protein Albumin Free T4 Urine WBC (Auto) Urine Total Protein Digoxin Salicylates Acetaminophen 12/30/19 12/30/19 12/31/19 21:42 Unknown 00:00 WBC RBC Hgb Hct MCV MCH MCHC RDW Plt Count Lymph % (Auto) [place] % (Auto) Eos % (Auto) Baso % (Auto) Lymph # [place] # Eos # Baso # Seg Neutrophils % Monocytes % (Manual) Monocytes # (Manual) D-Dimer ABG pH ABG pO2 ABG HCO3 ABG O2 Saturation ABG Base Excess ABG Hemoglobin Oxyhemoglobin Sodium Potassium Chloride Carbon Dioxide BUN Creatinine Glucose 498 H POC Glucose 371 H 452 H Lactic Acid Calcium Magnesium AST ALT Lactate Dehydrogenase Total Creatine Kinase C-Reactive Protein Total Protein Albumin Free T4 Urine WBC (Auto) Urine Total Protein Digoxin Salicylates Acetaminophen 12/31/19 12/31/19 12/31/19 04:31 05:42 08:01 WBC RBC Hgb Hct MCV MCH MCHC RDW Plt Count Lymph % (Auto) [place] % (Auto) Eos % (Auto) Baso % (Auto) Lymph # [place] # Eos # Baso # Seg Neutrophils % Monocytes % (Manual) Monocytes # (Manual) D-Dimer ABG pH 7.251 L ABG pO2 62.4 L ABG HCO3 31.1 H ABG O2 Saturation 88.7 L ABG Base Excess ABG Hemoglobin 8.7 L Oxyhemoglobin 86.4 L Sodium Potassium Chloride Carbon Dioxide BUN Creatinine Glucose POC Glucose 443 H 443 H Lactic Acid Calcium Magnesium AST ALT Lactate Dehydrogenase Total Creatine Kinase C-Reactive Protein Total Protein Albumin Free T4 Urine WBC (Auto) Urine Total Protein Digoxin Salicylates Acetaminophen 12/31/19 12/31/19 12/31/19 09:08 10:00 11:50 WBC RBC Hgb Hct MCV MCH MCHC RDW Plt Count Lymph % (Auto) [place] % (Auto) Eos % (Auto) Baso % (Auto) Lymph # [place] # Eos # Baso # Seg Neutrophils % Monocytes % (Manual) Monocytes # (Manual) D-Dimer ABG pH 7.325 L ABG pO2 97.2 H ABG HCO3 30.1 H ABG O2 Saturation ABG Base Excess 3.4 H ABG Hemoglobin 8.3 L Oxyhemoglobin 94.7 L Sodium 151 H D Potassium 3.2 L Chloride 113.0 H Carbon Dioxide BUN 23 H Creatinine 1.8 H Glucose 373 H POC Glucose 465 H Lactic Acid Calcium Magnesium AST ALT Lactate Dehydrogenase Total Creatine Kinase C-Reactive Protein Total Protein Albumin Free T4 Urine WBC (Auto) Urine Total Protein Digoxin Salicylates Acetaminophen 12/31/19 12/31/19 12/31/19 12:25 13:33 18:30 WBC RBC Hgb Hct MCV MCH MCHC RDW Plt Count Lymph % (Auto) [place] % (Auto) Eos % (Auto) Baso % (Auto) Lymph # [place] # Eos # Baso # Seg Neutrophils % Monocytes % (Manual) Monocytes # (Manual) D-Dimer ABG pH ABG pO2 ABG HCO3 ABG O2 Saturation ABG Base Excess ABG Hemoglobin Oxyhemoglobin Sodium Potassium Chloride Carbon Dioxide BUN Creatinine Glucose POC Glucose 379 H 311 H 349 H Lactic Acid Calcium Magnesium AST ALT Lactate Dehydrogenase Total Creatine Kinase C-Reactive Protein Total Protein Albumin Free T4 Urine WBC (Auto) Urine Total Protein Digoxin Salicylates Acetaminophen 12/31/19 12/31/19 01/01/20 22:29 23:30 02:58 WBC RBC Hgb Hct MCV MCH MCHC RDW Plt Count Lymph % (Auto) [place] % (Auto) Eos % (Auto) Baso % (Auto) Lymph # [place] # Eos # Baso # Seg Neutrophils % Monocytes % (Manual) Monocytes # (Manual) D-Dimer ABG pH ABG pO2 ABG HCO3 ABG O2 Saturation ABG Base Excess ABG Hemoglobin Oxyhemoglobin Sodium Potassium Chloride Carbon Dioxide BUN Creatinine Glucose POC Glucose 256 H 266 H 248 H Lactic Acid Calcium Magnesium AST ALT Lactate Dehydrogenase Total Creatine Kinase C-Reactive Protein Total Protein Albumin Free T4 Urine WBC (Auto) Urine Total Protein Digoxin Salicylates Acetaminophen 01/01/20 01/01/20 01/01/20 04:19 06:56 10:52 WBC RBC Hgb Hct MCV MCH MCHC RDW Plt Count Lymph % (Auto) [place] % (Auto) Eos % (Auto) Baso % (Auto) Lymph # [place] # Eos # Baso # Seg Neutrophils % Monocytes % (Manual) Monocytes # (Manual) D-Dimer ABG pH ABG pO2 90.7 H ABG HCO3 29.1 H ABG O2 Saturation ABG Base Excess 3.8 H ABG Hemoglobin 8.1 L Oxyhemoglobin 94.5 L Sodium Potassium Chloride Carbon Dioxide BUN Creatinine Glucose POC Glucose 303 H 244 H Lactic Acid Calcium Magnesium AST ALT Lactate Dehydrogenase Total Creatine Kinase C-Reactive Protein Total Protein Albumin Free T4 Urine WBC (Auto) Urine Total Protein Digoxin Salicylates Acetaminophen 01/01/20 01/01/20 01/01/20 13:39 14:49 18:42 WBC RBC Hgb Hct MCV MCH MCHC RDW Plt Count Lymph % (Auto) [place] % (Auto) Eos % (Auto) Baso % (Auto) Lymph # [place] # Eos # Baso # Seg Neutrophils % Monocytes % (Manual) Monocytes # (Manual) D-Dimer ABG pH ABG pO2 ABG HCO3 ABG O2 Saturation ABG Base Excess ABG Hemoglobin Oxyhemoglobin Sodium 147 H Potassium Chloride 107.1 H Carbon Dioxide BUN 28 H Creatinine Glucose 207 H POC Glucose 263 H 188 H Lactic Acid Calcium Magnesium AST ALT Lactate Dehydrogenase Total Creatine Kinase C-Reactive Protein Total Protein Albumin Free T4 Urine WBC (Auto) Urine Total Protein Digoxin Salicylates Acetaminophen 01/02/20 01/02/20 01/02/20 02:22 03:58 05:00 WBC RBC 3.31 L Hgb 8.0 L Hct 26.9 L MCV 81 L MCH 24 L MCHC 30 L RDW 19.4 H Plt Count Lymph % (Auto) [place] % (Auto) 9.4 H Eos % (Auto) 11.2 H Baso % (Auto) Lymph # [place] # Eos # 0.8 H Baso # Seg Neutrophils % Monocytes % (Manual) Monocytes # (Manual) D-Dimer ABG pH ABG pO2 63.0 L ABG HCO3 31.6 H ABG O2 Saturation 91.8 L ABG Base Excess 5.5 H ABG Hemoglobin 8.6 L Oxyhemoglobin 89.6 L Sodium Potassium Chloride Carbon Dioxide BUN Creatinine Glucose POC Glucose 196 H Lactic Acid Calcium Magnesium AST ALT Lactate Dehydrogenase Total Creatine Kinase C-Reactive Protein Total Protein Albumin Free T4 Urine WBC (Auto) Urine Total Protein Digoxin Salicylates Acetaminophen 01/02/20 01/02/20 01/02/20 05:40 10:26 13:57 WBC RBC Hgb Hct MCV MCH MCHC RDW Plt Count Lymph % (Auto) [place] % (Auto) Eos % (Auto) Baso % (Auto) Lymph # [place] # Eos # Baso # Seg Neutrophils % Monocytes % (Manual) Monocytes # (Manual) D-Dimer ABG pH ABG pO2 ABG HCO3 ABG O2 Saturation ABG Base Excess ABG Hemoglobin Oxyhemoglobin Sodium Potassium Chloride Carbon Dioxide BUN Creatinine Glucose POC Glucose 189 H 157 H 178 H Lactic Acid Calcium Magnesium AST ALT Lactate Dehydrogenase Total Creatine Kinase C-Reactive Protein Total Protein Albumin Free T4 Urine WBC (Auto) Urine Total Protein Digoxin Salicylates Acetaminophen 01/02/20 01/03/20 01/03/20 21:27 03:12 05:26 WBC RBC Hgb Hct MCV MCH MCHC RDW Plt Count Lymph % (Auto) [place] % (Auto) Eos % (Auto) Baso % (Auto) Lymph # [place] # Eos # Baso # Seg Neutrophils % Monocytes % (Manual) Monocytes # (Manual) D-Dimer ABG pH 7.473 H ABG pO2 109.6 H ABG HCO3 30.4 H ABG O2 Saturation ABG Base Excess 6.2 H ABG Hemoglobin 9.9 L Oxyhemoglobin Sodium Potassium Chloride Carbon Dioxide BUN Creatinine Glucose POC Glucose 131 H 133 H Lactic Acid Calcium Magnesium AST ALT Lactate Dehydrogenase Total Creatine Kinase C-Reactive Protein Total Protein Albumin Free T4 Urine WBC (Auto) Urine Total Protein Digoxin Salicylates Acetaminophen 01/03/20 01/03/20 01/03/20 05:40 05:40 15:01 WBC RBC 3.45 L Hgb 8.3 L Hct 27.3 L MCV 79 L MCH 24 L MCHC 30 L RDW 19.3 H Plt Count Lymph % (Auto) [place] % (Auto) Eos % (Auto) Baso % (Auto) Lymph # [place] # Eos # Baso # Seg Neutrophils % Monocytes % (Manual) Monocytes # (Manual) D-Dimer ABG pH ABG pO2 ABG HCO3 ABG O2 Saturation ABG Base Excess ABG Hemoglobin Oxyhemoglobin Sodium 151 H Potassium Chloride 111.8 H Carbon Dioxide 31 H BUN 37 H Creatinine 1.8 H Glucose 187 H POC Glucose 164 H Lactic Acid Calcium Magnesium AST ALT Lactate Dehydrogenase Total Creatine Kinase C-Reactive Protein Total Protein Albumin Free T4 Urine WBC (Auto) Urine Total Protein Digoxin Salicylates Acetaminophen 01/03/20 01/03/20 01/04/20 18:15 22:45 02:11 WBC RBC Hgb Hct MCV MCH MCHC RDW Plt Count Lymph % (Auto) [place] % (Auto) Eos % (Auto) Baso % (Auto) Lymph # [place] # Eos # Baso # Seg Neutrophils % Monocytes % (Manual) Monocytes # (Manual) D-Dimer ABG pH ABG pO2 ABG HCO3 ABG O2 Saturation ABG Base Excess ABG Hemoglobin Oxyhemoglobin Sodium Potassium Chloride Carbon Dioxide BUN Creatinine Glucose POC Glucose 184 H 176 H 206 H Lactic Acid Calcium Magnesium AST ALT Lactate Dehydrogenase Total Creatine Kinase C-Reactive Protein Total Protein Albumin Free T4 Urine WBC (Auto) Urine Total Protein Digoxin Salicylates Acetaminophen 01/04/20 01/04/20 01/04/20 03:16 05:15 10:53 WBC RBC Hgb Hct MCV MCH MCHC RDW Plt Count Lymph % (Auto) [place] % (Auto) Eos % (Auto) Baso % (Auto) Lymph # [place] # Eos # Baso # Seg Neutrophils % Monocytes % (Manual) Monocytes # (Manual) D-Dimer ABG pH 7.282 L ABG pO2 73.2 L ABG HCO3 ABG O2 Saturation 94.5 L ABG Base Excess -6.4 L ABG Hemoglobin 10.9 L Oxyhemoglobin 92.1 L Sodium Potassium Chloride Carbon Dioxide BUN Creatinine Glucose POC Glucose 139 H 224 H Lactic Acid Calcium Magnesium AST ALT Lactate Dehydrogenase Total Creatine Kinase C-Reactive Protein Total Protein Albumin Free T4 Urine WBC (Auto) Urine Total Protein Digoxin Salicylates Acetaminophen 01/04/20 01/04/20 01/04/20 15:47 18:05 22:07 WBC RBC Hgb Hct MCV MCH MCHC RDW Plt Count Lymph % (Auto) [place] % (Auto) Eos % (Auto) Baso % (Auto) Lymph # [place] # Eos # Baso # Seg Neutrophils % Monocytes % (Manual) Monocytes # (Manual) D-Dimer ABG pH ABG pO2 ABG HCO3 ABG O2 Saturation ABG Base Excess ABG Hemoglobin Oxyhemoglobin Sodium Potassium Chloride Carbon Dioxide BUN Creatinine Glucose POC Glucose 135 H 117 H 108 H Lactic Acid Calcium Magnesium AST ALT Lactate Dehydrogenase Total Creatine Kinase C-Reactive Protein Total Protein Albumin Free T4 Urine WBC (Auto) Urine Total Protein Digoxin Salicylates Acetaminophen 01/04/20 01/04/20 01/05/20 Unknown Unknown 02:04 WBC RBC 3.46 L Hgb 8.2 L Hct 27.8 L MCV 80 L MCH 24 L MCHC 30 L RDW 19.7 H Plt Count Lymph % (Auto) [place] % (Auto) Eos % (Auto) Baso % (Auto) Lymph # [place] # Eos # Baso # Seg Neutrophils % Monocytes % (Manual) Monocytes # (Manual) D-Dimer ABG pH ABG pO2 ABG HCO3 ABG O2 Saturation ABG Base Excess ABG Hemoglobin Oxyhemoglobin Sodium 150 H Potassium Chloride 110 H Carbon Dioxide 32 H BUN 32 H Creatinine Glucose 309 H POC Glucose 140 H Lactic Acid Calcium Magnesium AST ALT Lactate Dehydrogenase Total Creatine Kinase C-Reactive Protein Total Protein Albumin Free T4 Urine WBC (Auto) Urine Total Protein Digoxin Salicylates Acetaminophen 01/05/20 01/05/20 01/05/20 03:31 03:36 03:36 WBC RBC 3.46 L Hgb 8.4 L Hct 26.9 L MCV 78 L MCH 24 L MCHC 31 L RDW 19.0 H Plt Count Lymph % (Auto) [place] % (Auto) Eos % (Auto) Baso % (Auto) Lymph # [place] # Eos # Baso # Seg Neutrophils % Monocytes % (Manual) Monocytes # (Manual) D-Dimer ABG pH 7.454 H ABG pO2 113.0 H ABG HCO3 30.5 H ABG O2 Saturation ABG Base Excess 6.0 H ABG Hemoglobin 8.5 L Oxyhemoglobin Sodium 150 H Potassium Chloride 110.3 H Carbon Dioxide BUN 30 H Creatinine Glucose 148 H POC Glucose Lactic Acid Calcium Magnesium AST ALT Lactate Dehydrogenase Total Creatine Kinase C-Reactive Protein Total Protein Albumin Free T4 Urine WBC (Auto) Urine Total Protein Digoxin Salicylates Acetaminophen 01/05/20 01/05/20 01/05/20 05:21 09:56 11:45 WBC RBC Hgb Hct MCV MCH MCHC RDW Plt Count Lymph % (Auto) [place] % (Auto) Eos % (Auto) Baso % (Auto) Lymph # [place] # Eos # Baso # Seg Neutrophils % Monocytes % (Manual) Monocytes # (Manual) D-Dimer ABG pH ABG pO2 ABG HCO3 ABG O2 Saturation ABG Base Excess ABG Hemoglobin Oxyhemoglobin Sodium Potassium Chloride Carbon Dioxide BUN Creatinine Glucose POC Glucose 142 H 129 H 174 H Lactic Acid Calcium Magnesium AST ALT Lactate Dehydrogenase Total Creatine Kinase C-Reactive Protein Total Protein Albumin Free T4 Urine WBC (Auto) Urine Total Protein Digoxin Salicylates Acetaminophen 01/05/20 01/05/20 01/05/20 13:30 14:00 17:41 WBC RBC Hgb Hct MCV MCH MCHC RDW Plt Count Lymph % (Auto) [place] % (Auto) Eos % (Auto) Baso % (Auto) Lymph # [place] # Eos # Baso # Seg Neutrophils % Monocytes % (Manual) Monocytes # (Manual) D-Dimer ABG pH ABG pO2 ABG HCO3 ABG O2 Saturation ABG Base Excess ABG Hemoglobin Oxyhemoglobin Sodium Potassium Chloride Carbon Dioxide BUN 26 H Creatinine 1.6 H Glucose 302 H POC Glucose 168 H 136 H Lactic Acid Calcium Magnesium AST ALT Lactate Dehydrogenase Total Creatine Kinase C-Reactive Protein Total Protein Albumin Free T4 Urine WBC (Auto) Urine Total Protein Digoxin Salicylates Acetaminophen 01/05/20 01/05/20 01/06/20 20:38 23:32 03:50 WBC RBC Hgb Hct MCV MCH MCHC RDW Plt Count Lymph % (Auto) [place] % (Auto) Eos % (Auto) Baso % (Auto) Lymph # [place] # Eos # Baso # Seg Neutrophils % Monocytes % (Manual) Monocytes # (Manual) D-Dimer ABG pH ABG pO2 76.2 L ABG HCO3 30.1 H ABG O2 Saturation ABG Base Excess 5.1 H ABG Hemoglobin 9.5 L Oxyhemoglobin 93.8 L Sodium Potassium Chloride Carbon Dioxide BUN Creatinine Glucose POC Glucose 124 H 163 H Lactic Acid Calcium Magnesium AST ALT Lactate Dehydrogenase Total Creatine Kinase C-Reactive Protein Total Protein Albumin Free T4 Urine WBC (Auto) Urine Total Protein Digoxin Salicylates Acetaminophen 01/06/20 01/06/20 01/06/20 04:09 04:58 04:58 WBC RBC Hgb 8.8 L Hct 28.7 L MCV 78 L MCH 24 L MCHC 31 L RDW 18.7 H Plt Count 522 H Lymph % (Auto) [place] % (Auto) Eos % (Auto) Baso % (Auto) Lymph # [place] # Eos # Baso # Seg Neutrophils % Monocytes % (Manual) Monocytes # (Manual) D-Dimer ABG pH ABG pO2 ABG HCO3 ABG O2 Saturation ABG Base Excess ABG Hemoglobin Oxyhemoglobin Sodium 150 H D Potassium Chloride 109.3 H Carbon Dioxide BUN 25 H Creatinine Glucose 55 L POC Glucose 65 L Lactic Acid Calcium Magnesium AST ALT Lactate Dehydrogenase Total Creatine Kinase C-Reactive Protein Total Protein Albumin Free T4 Urine WBC (Auto) Urine Total Protein Digoxin Salicylates Acetaminophen 01/06/20 01/06/20 01/06/20 05:01 14:10 17:49 WBC RBC Hgb Hct MCV MCH MCHC RDW Plt Count Lymph % (Auto) [place] % (Auto) Eos % (Auto) Baso % (Auto) Lymph # [place] # Eos # Baso # Seg Neutrophils % Monocytes % (Manual) Monocytes # (Manual) D-Dimer ABG pH ABG pO2 ABG HCO3 ABG O2 Saturation ABG Base Excess ABG Hemoglobin Oxyhemoglobin Sodium Potassium Chloride Carbon Dioxide BUN Creatinine Glucose POC Glucose 60 L 119 H 131 H Lactic Acid Calcium Magnesium AST ALT Lactate Dehydrogenase Total Creatine Kinase C-Reactive Protein Total Protein Albumin Free T4 Urine WBC (Auto) Urine Total Protein Digoxin Salicylates Acetaminophen 01/06/20 01/07/20 01/07/20 21:08 02:11 05:19 WBC RBC Hgb Hct MCV MCH MCHC RDW Plt Count Lymph % (Auto) [place] % (Auto) Eos % (Auto) Baso % (Auto) Lymph # [place] # Eos # Baso # Seg Neutrophils % Monocytes % (Manual) Monocytes # (Manual) D-Dimer ABG pH ABG pO2 ABG HCO3 ABG O2 Saturation ABG Base Excess ABG Hemoglobin Oxyhemoglobin Sodium Potassium Chloride Carbon Dioxide BUN Creatinine Glucose POC Glucose 136 H 209 H 182 H Lactic Acid Calcium Magnesium AST ALT Lactate Dehydrogenase Total Creatine Kinase C-Reactive Protein Total Protein Albumin Free T4 Urine WBC (Auto) Urine Total Protein Digoxin Salicylates Acetaminophen 01/07/20 01/07/20 01/07/20 11:40 11:52 13:49 WBC RBC Hgb Hct MCV MCH MCHC RDW Plt Count Lymph % (Auto) [place] % (Auto) Eos % (Auto) Baso % (Auto) Lymph # [place] # Eos # Baso # Seg Neutrophils % Monocytes % (Manual) Monocytes # (Manual) D-Dimer ABG pH ABG pO2 ABG HCO3 ABG O2 Saturation ABG Base Excess ABG Hemoglobin Oxyhemoglobin Sodium Potassium Chloride Carbon Dioxide BUN 21 H Creatinine Glucose 190 H POC Glucose 180 H 184 H Lactic Acid Calcium Magnesium AST ALT Lactate Dehydrogenase Total Creatine Kinase C-Reactive Protein Total Protein Albumin Free T4 Urine WBC (Auto) Urine Total Protein Digoxin Salicylates Acetaminophen 01/07/20 01/07/20 01/07/20 17:54 22:19 Unknown WBC RBC Hgb Hct MCV MCH MCHC RDW Plt Count Lymph % (Auto) [place] % (Auto) Eos % (Auto) Baso % (Auto) Lymph # [place] # Eos # Baso # Seg Neutrophils % Monocytes % (Manual) Monocytes # (Manual) D-Dimer ABG pH ABG pO2 ABG HCO3 28.9 H ABG O2 Saturation ABG Base Excess 4.0 H ABG Hemoglobin 11.0 L Oxyhemoglobin 94.2 L Sodium Potassium Chloride Carbon Dioxide BUN Creatinine Glucose POC Glucose 190 H 299 H Lactic Acid Calcium Magnesium AST ALT Lactate Dehydrogenase Total Creatine Kinase C-Reactive Protein Total Protein Albumin Free T4 Urine WBC (Auto) Urine Total Protein Digoxin Salicylates Acetaminophen 01/08/20 01/08/20 01/08/20 02:45 05:26 05:27 WBC RBC Hgb Hct MCV MCH MCHC RDW Plt Count Lymph % (Auto) [place] % (Auto) Eos % (Auto) Baso % (Auto) Lymph # [place] # Eos # Baso # Seg Neutrophils % Monocytes % (Manual) Monocytes # (Manual) D-Dimer ABG pH ABG pO2 67.8 L ABG HCO3 26.5 H ABG O2 Saturation 93.2 L ABG Base Excess ABG Hemoglobin 8.1 L Oxyhemoglobin 90.4 L Sodium Potassium Chloride Carbon Dioxide BUN Creatinine Glucose POC Glucose 245 H 346 H Lactic Acid Calcium Magnesium AST ALT Lactate Dehydrogenase Total Creatine Kinase C-Reactive Protein Total Protein Albumin Free T4 Urine WBC (Auto) Urine Total Protein Digoxin Salicylates Acetaminophen 01/08/20 01/08/20 01/08/20 08:03 08:03 10:33 WBC RBC 3.14 L Hgb 7.6 L Hct 24.3 L MCV 77 L MCH 24 L MCHC 31 L RDW 18.3 H Plt Count 509 H Lymph % (Auto) [place] % (Auto) Eos % (Auto) Baso % (Auto) Lymph # [place] # Eos # Baso # Seg Neutrophils % Monocytes % (Manual) Monocytes # (Manual) D-Dimer ABG pH ABG pO2 ABG HCO3 ABG O2 Saturation ABG Base Excess ABG Hemoglobin Oxyhemoglobin Sodium 132 L D Potassium Chloride 94.7 L Carbon Dioxide BUN 22 H Creatinine Glucose 284 H POC Glucose 275 H Lactic Acid Calcium Magnesium AST ALT Lactate Dehydrogenase Total Creatine Kinase C-Reactive Protein Total Protein Albumin Free T4 Urine WBC (Auto) Urine Total Protein Digoxin Salicylates Acetaminophen 01/08/20 01/08/20 01/08/20 13:34 17:24 21:49 WBC RBC Hgb Hct MCV MCH MCHC RDW Plt Count Lymph % (Auto) [place] % (Auto) Eos % (Auto) Baso % (Auto) Lymph # [place] # Eos # Baso # Seg Neutrophils % Monocytes % (Manual) Monocytes # (Manual) D-Dimer ABG pH ABG pO2 ABG HCO3 ABG O2 Saturation ABG Base Excess ABG Hemoglobin Oxyhemoglobin Sodium Potassium Chloride Carbon Dioxide BUN Creatinine Glucose POC Glucose 273 H 294 H 265 H Lactic Acid Calcium Magnesium AST ALT Lactate Dehydrogenase Total Creatine Kinase C-Reactive Protein Total Protein Albumin Free T4 Urine WBC (Auto) Urine Total Protein Digoxin Salicylates Acetaminophen 01/09/20 01/09/20 01/09/20 00:13 03:45 05:55 WBC RBC Hgb Hct MCV MCH MCHC RDW Plt Count Lymph % (Auto) [place] % (Auto) Eos % (Auto) Baso % (Auto) Lymph # [place] # Eos # Baso # Seg Neutrophils % Monocytes % (Manual) Monocytes # (Manual) D-Dimer ABG pH ABG pO2 ABG HCO3 ABG O2 Saturation ABG Base Excess ABG Hemoglobin Oxyhemoglobin Sodium Potassium Chloride Carbon Dioxide BUN Creatinine Glucose POC Glucose 251 H 346 H 300 H Lactic Acid Calcium Magnesium AST ALT Lactate Dehydrogenase Total Creatine Kinase C-Reactive Protein Total Protein Albumin Free T4 Urine WBC (Auto) Urine Total Protein Digoxin Salicylates Acetaminophen 01/09/20 01/09/20 01/09/20 08:15 09:31 12:04 WBC RBC Hgb Hct MCV MCH MCHC RDW Plt Count Lymph % (Auto) [place] % (Auto) Eos % (Auto) Baso % (Auto) Lymph # [place] # Eos # Baso # Seg Neutrophils % Monocytes % (Manual) Monocytes # (Manual) D-Dimer ABG pH ABG pO2 ABG HCO3 ABG O2 Saturation ABG Base Excess ABG Hemoglobin Oxyhemoglobin Sodium 134 L Potassium Chloride 97.6 L Carbon Dioxide BUN 25 H Creatinine Glucose 240 H POC Glucose 191 H 230 H Lactic Acid Calcium Magnesium AST ALT Lactate Dehydrogenase Total Creatine Kinase C-Reactive Protein Total Protein Albumin Free T4 Urine WBC (Auto) Urine Total Protein Digoxin Salicylates Acetaminophen 01/09/20 01/09/20 01/09/20 13:46 17:31 22:28 WBC RBC Hgb Hct MCV MCH MCHC RDW Plt Count Lymph % (Auto) [place] % (Auto) Eos % (Auto) Baso % (Auto) Lymph # [place] # Eos # Baso # Seg Neutrophils % Monocytes % (Manual) Monocytes # (Manual) D-Dimer ABG pH ABG pO2 ABG HCO3 ABG O2 Saturation ABG Base Excess ABG Hemoglobin Oxyhemoglobin Sodium Potassium Chloride Carbon Dioxide BUN Creatinine Glucose POC Glucose 211 H 260 H 223 H Lactic Acid Calcium Magnesium AST ALT Lactate Dehydrogenase Total Creatine Kinase C-Reactive Protein Total Protein Albumin Free T4 Urine WBC (Auto) Urine Total Protein Digoxin Salicylates Acetaminophen 01/10/20 01/10/20 01/10/20 02:16 04:20 05:55 WBC RBC Hgb Hct MCV MCH MCHC RDW Plt Count Lymph % (Auto) [place] % (Auto) Eos % (Auto) Baso % (Auto) Lymph # [place] # Eos # Baso # Seg Neutrophils % Monocytes % (Manual) Monocytes # (Manual) D-Dimer ABG pH ABG pO2 95.3 H ABG HCO3 27.8 H ABG O2 Saturation ABG Base Excess ABG Hemoglobin 8.3 L Oxyhemoglobin Sodium Potassium Chloride Carbon Dioxide BUN Creatinine Glucose POC Glucose 219 H 245 H Lactic Acid Calcium Magnesium AST ALT Lactate Dehydrogenase Total Creatine Kinase C-Reactive Protein Total Protein Albumin Free T4 Urine WBC (Auto) Urine Total Protein Digoxin Salicylates Acetaminophen 01/10/20 01/10/20 01/10/20 10:38 15:08 15:45 WBC RBC Hgb Hct MCV MCH MCHC RDW Plt Count Lymph % (Auto) [place] % (Auto) Eos % (Auto) Baso % (Auto) Lymph # [place] # Eos # Baso # Seg Neutrophils % Monocytes % (Manual) Monocytes # (Manual) D-Dimer ABG pH ABG pO2 ABG HCO3 ABG O2 Saturation ABG Base Excess ABG Hemoglobin Oxyhemoglobin Sodium Potassium Chloride Carbon Dioxide BUN Creatinine Glucose POC Glucose 268 H 246 H 238 H Lactic Acid Calcium Magnesium AST ALT Lactate Dehydrogenase Total Creatine Kinase C-Reactive Protein Total Protein Albumin Free T4 Urine WBC (Auto) Urine Total Protein Digoxin Salicylates Acetaminophen 01/10/20 01/10/20 01/10/20 18:00 21:09 22:48 WBC RBC Hgb Hct MCV MCH MCHC RDW Plt Count Lymph % (Auto) [place] % (Auto) Eos % (Auto) Baso % (Auto) Lymph # [place] # Eos # Baso # Seg Neutrophils % Monocytes % (Manual) Monocytes # (Manual) D-Dimer ABG pH ABG pO2 ABG HCO3 ABG O2 Saturation ABG Base Excess ABG Hemoglobin Oxyhemoglobin Sodium Potassium Chloride Carbon Dioxide BUN Creatinine Glucose POC Glucose 187 H 176 H 189 H Lactic Acid Calcium Magnesium AST ALT Lactate Dehydrogenase Total Creatine Kinase C-Reactive Protein Total Protein Albumin Free T4 Urine WBC (Auto) Urine Total Protein Digoxin Salicylates Acetaminophen 01/11/20 01/11/20 01/11/20 03:07 05:45 05:45 WBC RBC 3.15 L Hgb 7.7 L Hct 24.9 L MCV 79 L MCH 24 L MCHC 31 L RDW 18.7 H Plt Count 667 H Lymph % (Auto) [place] % (Auto) Eos % (Auto) Baso % (Auto) Lymph # [place] # Eos # Baso # Seg Neutrophils % Monocytes % (Manual) Monocytes # (Manual) D-Dimer ABG pH ABG pO2 ABG HCO3 ABG O2 Saturation ABG Base Excess ABG Hemoglobin Oxyhemoglobin Sodium 148 H D Potassium 5.1 H Chloride 111.9 H Carbon Dioxide BUN 26 H Creatinine Glucose 236 H POC Glucose 253 H Lactic Acid Calcium Magnesium AST 67 H ALT Lactate Dehydrogenase Total Creatine Kinase C-Reactive Protein Total Protein 5.9 L Albumin 2.8 L Free T4 Urine WBC (Auto) Urine Total Protein Digoxin Salicylates Acetaminophen 01/11/20 01/11/20 01/11/20 06:10 12:59 14:22 WBC RBC Hgb Hct MCV MCH MCHC RDW Plt Count Lymph % (Auto) [place] % (Auto) Eos % (Auto) Baso % (Auto) Lymph # [place] # Eos # Baso # Seg Neutrophils % Monocytes % (Manual) Monocytes # (Manual) D-Dimer ABG pH ABG pO2 ABG HCO3 ABG O2 Saturation ABG Base Excess ABG Hemoglobin Oxyhemoglobin Sodium Potassium Chloride Carbon Dioxide BUN Creatinine Glucose POC Glucose 261 H 234 H 220 H Lactic Acid Calcium Magnesium AST ALT Lactate Dehydrogenase Total Creatine Kinase C-Reactive Protein Total Protein Albumin Free T4 Urine WBC (Auto) Urine Total Protein Digoxin Salicylates Acetaminophen 01/11/20 01/11/20 01/12/20 17:18 21:20 00:45 WBC RBC Hgb Hct MCV MCH MCHC RDW Plt Count Lymph % (Auto) [place] % (Auto) Eos % (Auto) Baso % (Auto) Lymph # [place] # Eos # Baso # Seg Neutrophils % Monocytes % (Manual) Monocytes # (Manual) D-Dimer ABG pH ABG pO2 ABG HCO3 ABG O2 Saturation ABG Base Excess ABG Hemoglobin Oxyhemoglobin Sodium Potassium Chloride Carbon Dioxide BUN Creatinine Glucose POC Glucose 264 H 299 H 289 H Lactic Acid Calcium Magnesium AST ALT Lactate Dehydrogenase Total Creatine Kinase C-Reactive Protein Total Protein Albumin Free T4 Urine WBC (Auto) Urine Total Protein Digoxin Salicylates Acetaminophen 01/12/20 01/12/20 01/12/20 04:35 06:10 11:29 WBC RBC Hgb Hct MCV MCH MCHC RDW Plt Count Lymph % (Auto) [place] % (Auto) Eos % (Auto) Baso % (Auto) Lymph # [place] # Eos # Baso # Seg Neutrophils % Monocytes % (Manual) Monocytes # (Manual) D-Dimer ABG pH ABG pO2 ABG HCO3 ABG O2 Saturation ABG Base Excess ABG Hemoglobin Oxyhemoglobin Sodium Potassium Chloride Carbon Dioxide BUN Creatinine Glucose POC Glucose 187 H 194 H 213 H Lactic Acid Calcium Magnesium AST ALT Lactate Dehydrogenase Total Creatine Kinase C-Reactive Protein Total Protein Albumin Free T4 Urine WBC (Auto) Urine Total Protein Digoxin Salicylates Acetaminophen 01/12/20 01/12/20 01/12/20 14:40 18:50 21:34 WBC RBC Hgb Hct MCV MCH MCHC RDW Plt Count Lymph % (Auto) [place] % (Auto) Eos % (Auto) Baso % (Auto) Lymph # [place] # Eos # Baso # Seg Neutrophils % Monocytes % (Manual) Monocytes # (Manual) D-Dimer ABG pH ABG pO2 ABG HCO3 ABG O2 Saturation ABG Base Excess ABG Hemoglobin Oxyhemoglobin Sodium Potassium Chloride Carbon Dioxide BUN Creatinine Glucose POC Glucose 288 H 292 H 147 H Lactic Acid Calcium Magnesium AST ALT Lactate Dehydrogenase Total Creatine Kinase C-Reactive Protein Total Protein Albumin Free T4 Urine WBC (Auto) Urine Total Protein Digoxin Salicylates Acetaminophen 01/12/20 01/13/20 01/13/20 23:16 04:00 05:27 WBC RBC Hgb Hct MCV MCH MCHC RDW Plt Count Lymph % (Auto) [place] % (Auto) Eos % (Auto) Baso % (Auto) Lymph # [place] # Eos # Baso # Seg Neutrophils % Monocytes % (Manual) Monocytes # (Manual) D-Dimer ABG pH ABG pO2 ABG HCO3 ABG O2 Saturation ABG Base Excess ABG Hemoglobin Oxyhemoglobin Sodium 149 H Potassium Chloride 112.4 H Carbon Dioxide 32 H BUN 28 H Creatinine Glucose 174 H POC Glucose 122 H 143 H Lactic Acid Calcium Magnesium AST ALT Lactate Dehydrogenase Total Creatine Kinase C-Reactive Protein Total Protein Albumin Free T4 Urine WBC (Auto) Urine Total Protein Digoxin Salicylates Acetaminophen 01/13/20 01/13/20 01/13/20 10:24 13:34 15:10 WBC RBC Hgb Hct MCV MCH MCHC RDW Plt Count Lymph % (Auto) [place] % (Auto) Eos % (Auto) Baso % (Auto) Lymph # [place] # Eos # Baso # Seg Neutrophils % Monocytes % (Manual) Monocytes # (Manual) D-Dimer ABG pH 7.223 L ABG pO2 ABG HCO3 33.1 H ABG O2 Saturation 94.7 L ABG Base Excess 4.2 H ABG Hemoglobin 8.5 L Oxyhemoglobin 92.1 L Sodium Potassium Chloride Carbon Dioxide BUN Creatinine Glucose POC Glucose 172 H 151 H Lactic Acid Calcium Magnesium AST ALT Lactate Dehydrogenase Total Creatine Kinase C-Reactive Protein Total Protein Albumin Free T4 Urine WBC (Auto) Urine Total Protein Digoxin Salicylates Acetaminophen 01/13/20 01/13/20 01/13/20 17:59 20:37 22:17 WBC RBC Hgb Hct MCV MCH MCHC RDW Plt Count Lymph % (Auto) [place] % (Auto) Eos % (Auto) Baso % (Auto) Lymph # [place] # Eos # Baso # Seg Neutrophils % Monocytes % (Manual) Monocytes # (Manual) D-Dimer ABG pH ABG pO2 ABG HCO3 ABG O2 Saturation ABG Base Excess ABG Hemoglobin Oxyhemoglobin Sodium Potassium Chloride Carbon Dioxide BUN Creatinine Glucose POC Glucose 114 H 152 H Lactic Acid Calcium Magnesium AST ALT Lactate Dehydrogenase Total Creatine Kinase C-Reactive Protein Total Protein Albumin Free T4 0.63 L Urine WBC (Auto) Urine Total Protein Digoxin Salicylates Acetaminophen 01/13/20 01/14/20 01/14/20 Unknown 02:10 05:20 WBC RBC 3.39 L Hgb 8.1 L Hct 28.4 L MCV MCH 24 L MCHC 29 L RDW 19.9 H Plt Count 713 H Lymph % (Auto) [place] % (Auto) 12.7 H Eos % (Auto) Baso % (Auto) 1.9 H Lymph # [place] # 1.3 H Eos # Baso # 0.2 H Seg Neutrophils % Monocytes % (Manual) Monocytes # (Manual) D-Dimer ABG pH ABG pO2 ABG HCO3 ABG O2 Saturation ABG Base Excess ABG Hemoglobin Oxyhemoglobin Sodium Potassium Chloride Carbon Dioxide BUN Creatinine Glucose POC Glucose 151 H 157 H Lactic Acid Calcium Magnesium AST ALT Lactate Dehydrogenase Total Creatine Kinase C-Reactive Protein Total Protein Albumin Free T4 Urine WBC (Auto) Urine Total Protein Digoxin Salicylates Acetaminophen 01/14/20 01/14/20 01/14/20 11:49 14:56 18:03 WBC RBC Hgb Hct MCV MCH MCHC RDW Plt Count Lymph % (Auto) [place] % (Auto) Eos % (Auto) Baso % (Auto) Lymph # [place] # Eos # Baso # Seg Neutrophils % Monocytes % (Manual) Monocytes # (Manual) D-Dimer ABG pH ABG pO2 ABG HCO3 ABG O2 Saturation ABG Base Excess ABG Hemoglobin Oxyhemoglobin Sodium Potassium Chloride Carbon Dioxide BUN Creatinine Glucose POC Glucose 139 H 112 H 134 H Lactic Acid Calcium Magnesium AST ALT Lactate Dehydrogenase Total Creatine Kinase C-Reactive Protein Total Protein Albumin Free T4 Urine WBC (Auto) Urine Total Protein Digoxin Salicylates Acetaminophen 01/14/20 01/15/20 01/15/20 22:03 02:21 05:28 WBC RBC Hgb Hct MCV MCH MCHC RDW Plt Count Lymph % (Auto) [place] % (Auto) Eos % (Auto) Baso % (Auto) Lymph # [place] # Eos # Baso # Seg Neutrophils % Monocytes % (Manual) Monocytes # (Manual) D-Dimer ABG pH ABG pO2 ABG HCO3 ABG O2 Saturation ABG Base Excess ABG Hemoglobin Oxyhemoglobin Sodium Potassium Chloride Carbon Dioxide BUN Creatinine Glucose POC Glucose 173 H 129 H 127 H Lactic Acid Calcium Magnesium AST ALT Lactate Dehydrogenase Total Creatine Kinase C-Reactive Protein Total Protein Albumin Free T4 Urine WBC (Auto) Urine Total Protein Digoxin Salicylates Acetaminophen 01/15/20 01/15/20 01/15/20 10:43 16:14 18:25 WBC RBC Hgb Hct MCV MCH MCHC RDW Plt Count Lymph % (Auto) [place] % (Auto) Eos % (Auto) Baso % (Auto) Lymph # [place] # Eos # Baso # Seg Neutrophils % Monocytes % (Manual) Monocytes # (Manual) D-Dimer ABG pH ABG pO2 ABG HCO3 ABG O2 Saturation ABG Base Excess ABG Hemoglobin Oxyhemoglobin Sodium Potassium Chloride Carbon Dioxide BUN Creatinine Glucose POC Glucose 150 H 133 H 166 H Lactic Acid Calcium Magnesium AST ALT Lactate Dehydrogenase Total Creatine Kinase C-Reactive Protein Total Protein Albumin Free T4 Urine WBC (Auto) Urine Total Protein Digoxin Salicylates Acetaminophen 01/15/20 01/16/20 01/16/20 23:03 02:11 06:00 WBC RBC 3.19 L Hgb 7.9 L Hct 26.2 L MCV 82 L MCH 25 L MCHC 30 L RDW 20.1 H Plt Count 466 H Lymph % (Auto) 12.9 L [place] % (Auto) 11.2 H Eos % (Auto) 11.0 H Baso % (Auto) Lymph # 1.1 L [place] # 0.9 H Eos # 0.9 H Baso # Seg Neutrophils % Monocytes % (Manual) Monocytes # (Manual) D-Dimer ABG pH ABG pO2 ABG HCO3 ABG O2 Saturation ABG Base Excess ABG Hemoglobin Oxyhemoglobin Sodium Potassium Chloride Carbon Dioxide BUN Creatinine Glucose POC Glucose 143 H 136 H Lactic Acid Calcium Magnesium AST ALT Lactate Dehydrogenase Total Creatine Kinase C-Reactive Protein Total Protein Albumin Free T4 Urine WBC (Auto) Urine Total Protein Digoxin Salicylates Acetaminophen 01/16/20 01/16/20 06:00 06:10 WBC RBC Hgb Hct MCV MCH MCHC RDW Plt Count Lymph % (Auto) [place] % (Auto) Eos % (Auto) Baso % (Auto) Lymph # [place] # Eos # Baso # Seg Neutrophils % Monocytes % (Manual) Monocytes # (Manual) D-Dimer ABG pH ABG pO2 ABG HCO3 ABG O2 Saturation ABG Base Excess ABG Hemoglobin Oxyhemoglobin Sodium 152 H Potassium Chloride 110.2 H Carbon Dioxide 36 H BUN 23 H Creatinine 0.7 L Glucose 161 H POC Glucose 192 H Lactic Acid Calcium Magnesium AST ALT Lactate Dehydrogenase Total Creatine Kinase C-Reactive Protein Total Protein Albumin Free T4 Urine WBC (Auto) Urine Total Protein Digoxin Salicylates Acetaminophen Allied health notes reviewed: nursing
[2020-01-16] MEDS: DOCUSATE SODIUM 100 MG/10 ML ORAL LIQD PO SCH ×2 (10:10→22:05)
[2020-01-16] MEDS: ASPIRIN 81 MG TAB CHEW PO SCH (10:10)
[2020-01-16] MEDS: FOLIC ACID 1 MG TAB PO SCH (10:10)
[2020-01-16] MEDS: FAMOTIDINE 20 MG TAB PO SCH ×2 (10:11→22:05)
[2020-01-16] MEDS: HEPARIN 5,000 UNIT/1 ML VIAL SUB-Q SCH ×2 (10:11→22:05)
[2020-01-16] MEDS: IPRATROPIUM/ALBUTEROL SULFATE 3 ML AMPUL.NEB IH SCH ×3 (10:25→19:58)
--- NOTE | 2020-01-16 10:49 | Progress Note ---
Assessment and Plan Assessment and plan: /Septic Shock /Sinus bradycardia /HypERnatremia / Acute hypoxic respiratory failure Likely from bilateral pneumonia and diastolic heart failure Patient intubated, placed on ventilatory support. critical care team consulted in ED. Patient is extubated, continue nebulizer breathing treatment and as needed biPAP We will also do a swallow eval / Sepsis with shock cont IV antibiotic therapy, IV fluid resuscitation therapy, monitor urine output every shift, maintain mean arterial blood pressure greater than or equal to 65, s/p IV pressor support. / Suspected 2019-nCoV infection -ruled out with 2 negative test / Diastolic CHF Preserved EF based on prior echocardiogram Monitor weight strict I's/O, daily weight, monitor urine output every shift, submental oxygen, blood pressure control. /JAGDEEP, due to vasomotor nephropathy, present on admission -Creatinine improving, -Likely due to severe sepsis and hypotension /hypernatremia, -due to dehydration and sepsis -change fluid to D5W - monitor BMP /Hypokalemia, replete / Diabetes type II Initiate tube feeding diet Sliding scale insulin, Accu-Chek, hypoglycemia protocol. / Hypothyroidism Synthroid therapy, supportive care. / Bilateral pneumonia Pneumonia protocol: IV antibiotic therapy with rocephin for total 7 days, pulse oximetry, /Cervical lymphadenopathy -Reactive versus infectious process versus malignancy -Need repeat scanning and further staging when medically more stable -Pulmonology and ID following /Ileus: Hold tube feeds / HTN (hypertension) -hold BP meds as patient is hypotensive Monitor blood pressure every shift, continue medical management. /History of obstructive sleep apnea -Patient currently on mechanical ventilation /Acute metabolic encephalopathy Secondary to hyponatremia. /Urinary retention, suspected in the ER -Patient having good urine output now, will hold any CT scan -Continue IV fluid / DVT prophylaxis SCD to bilateral lower extremities while in bed, prophylactic heparin 12/19/19: Negative for COVID-19, continue pressor and wean off as tolerated, continue IV antibiotic and follow cultures. 12/19: Weaned off from pressor, sodium 156>157>153 today, creatinine 1.4>1.2>1.0. Continue IV fluid. Wean off from vent as tolerated. Follow ID recommendation 12/20: Extubated today, continue to monitor in the ICU overnight if clinically stable with transfer out to [facility]/telemetry tomorrow a.m.. Sodium 149 today, continue IV fluid and monitor BMP. Swallow eval, PT OT eval. 2nd text for covid is negative 12/21: transfer to [facility], start on gentle hydration. mechanical soft diet 12/22: placed back on bipap, Na 163 - start on D5W, monitor bmp 12/23: spoke to sister, updated [id number], also discussed Pulmonary, will likely need LTAC. Obtain Nephrology due to persistent Hypernatremia. Will start on free water and continue to monitor. Remains of restriants for safety due to intermittent confusion. 12/24: Still with intermittent encephalopathy. Requiring restraints. Hyperna tremia still persist continue hypotonic solution. Nephrology consulted. Free water started this morning will increase dose. Replace potassium as hypokalemia still persist 12/26/19: Clinically improving, BIPAP now PRN AND HS, Na improving, continue renal follow up. I have called [facility] in case they would like to transfer the patient tested previously requested. 12/26: Hypernatermia still persist, had pulled out NGT yesterday, Continue free water, Continue Bipap, [facility] states he is not yet stable for transfer. Although from our critical care team this patient has been cleared for to be able to transfer. 12/27: Patient reintubated due to hypoxia. Continue current management as outlined by union carpenter. Sodium is improving. Continue current management monitor ABG and intermittent chest x-ray. [facility] group updated. Patient sister also updated. 12/28: Sepsis persist. Antibiotics adjusted.-start linezolid 600 mg IV q 12 hour. Will adjust insulin for better management of blood glucose. 12/29: Shock still persist Levophed adjusted upward. [place] advised patient not safe for travel at this time. Continue ventilatory support continue full support antibiotics adjusted by ID. Follow cultures 12/30: Still on the vent and pressors , Isolation secondary MRSA In sputum. 12/31: Continue current management, will need intermittent chest xray, adjust insulin For better blood glucose control. Check labs in am 01/01: KUB reviewed shows distended bowel with no no specific obstruction noted. We will hold tube feeds at this time place NG tube to low intermittent suction. Repeat chest x-ray in a.m. Hyponatremia is better kidney function appears to be improving continue to monitor. 01/02: Continue feeding tube to low intermittent suction over 500 residual came out in the last 16+ hours. Repeat blood culture per ID. Continue antibiotics. We will obtain the CT abdomen and pelvis without contrast as renal function is mildly increased today. Prognosis is guarded repeat imaging concerning for colon distention. Will defer to critical care if the fecal management system should be placed. 01/03: CT A/P and chest. IMPRESSION: 1. Predominantly dependent bilateral consolidative and groundglass changes throughout both lungs have worsened since the prior. There is a new small left pleural effusion as well. These findings could be seen in the setting of pulmonary edema with associated superimposed infectious process. There is no cardiomegaly. 2. Left cervical/supraclavicular adenopathy appears slightly increased. This is nonspecific. However, there are shoddy nodes throughout the retroperitoneum and within the pelvis, and the spleen is mildly enlarged. Taken together, these findings are concerning for lymphoproliferative process such as lymphoma. - Ultrasound guided Biopsy, also send peripheral smear. US guided biopsy ordered - add a second pressors 01/04: Awaiting biopsy, continue supportive care, Sodium stable and improving. Patient undergoing bronchoscopy today. 01/05: Continue supportive care, monitor sodium level, wean pressors as tolerated, Radiology unable to perform biopsy of Lymphnode while patient is on the vent per Radiology team. [facility]der[facility]ott updated of clinical status 01/06: Remains on pressors. Continues with nonoliguric kidney injury. We will give a bolus of fluid as patient is still dry. Hypoglycemia is improving will decrease to D5 from D10 at the same rate. Continue to monitor await cultures and cytology from bronchoscopy. Likely will need trach and PEG. 01/07: Discontinue D5. Patient did receive a bolus of fluid yesterday. Bowel movement noted. Monitor blood sugar close, continue to wean pressors, folllow result from bronchoscopy. start considering Trach and PEG 01/08: Noted hypotensive again this morning requiring reinitiation of pressors. Also was bradycardic received atropine. Keep atropine at bedside cardiology evaluated continue pulmonary supportive care while on ventilator. Renal function is improving. Will give additional bolus of fluid. 01/09: Consult placed to surgery for trach and PEG as patient has failed multiple weaning trials.. Still awaiting biopsy for the adenopathy noted. Again radiology would want the patient off the vent prior to doing biopsy. 01/11/2020. Patient still requiring mechanical ventilation with AC mode rate 14, tidal volume 450, FiO2 45% and PEEP of 8. Patient requiring fentanyl for sedation, wean as tolerated. Patient currently on pressors of dopamine and vasopressin. And currently on stress dose hydrocortisone 100 mg IV every 8 hours. Continue atropine at the bedside for emergent treatment of bradycardia. Cardiology to decide on possible device therapies. 01/12/2020. Patient still requiring mechanical ventilation with AC mode rate of 14, tidal volume 450, FiO2 50% and PEEP of 8. Continue to wean pressors to maintain MEP greater than 65. Atropine at the bedside for emergent treatment of bradycardia. Continue stress dose hydrocortisone. 01/13/2020. Patient still requiring mechanical ventilation on PSV mode FiO2 50% PEEP 8 and pressure support 15. Continue CPAP trials as tolerated. Continue to wean pressors to maintain MAP greater than 65. Atropine as needed for bradycardia. Avoid AV estella blocking agents. 01/14/2020. Patient currently on AC mode ventilation with rate of 14, tidal volume 450, FiO2 35% and PEEP of 8. Continue CPAP trials per protocols. Continue dopamine/atropine as needed for bradycardia. Consider pacemaker per cardiology. Continue free water every 4 hours for hypernatremia. Continue to monitor off antibiotics. Surgery to perform tracheostomy and PEG placement. 01/15/2020. Patient currently with AC mode ventilation rate 14, tidal volume 450, PEEP of 8 and FiO2 40%. Continue CPAP trials per protocols. Continue dopamine/atropine as needed for bradycardia. Consider pacemaker per cardiology. 01/16/2020. Patient currently with AC mode ventilation rate 14, tidal volume 450, PEEP of 8 and FiO2 40%. Continue CPAP trials per protocols. Continue dopamine/atropine as needed for bradycardia. Consider pacemaker per cardiology. The high probability of a clinically significant, sudden or life threatening deterioration of the [renal, respiratory and cardiac] system(s) required my full and direct attention, intervention and personal management. The aggregate critical care time was [31] minutes. This time is in addition to time spent performing reported procedures but includes the following: [x] Data Review and interpretation [x] Patient assessment and monitoring of vital signs [x] Documentation [x] Medication orders and management History Interval history: No new issues overnight. Hospitalist Physical - Constitutional Vitals: Temp Pulse Resp BP Pulse Ox 97.9 F 64 14 136/70 97 01/16/20 08:00 01/16/20 06:00 01/16/20 06:00 01/16/20 06:00 01/16/20 06:00 General appearance: Present: severe distress - EENT Eyes: Present: PERRL, EOM intact ENT: hearing intact, clear oral mucosa, dentition normal - Neck Neck: Present: supple, normal ROM - Respiratory Respiratory effort: normal Respiratory: bilateral: CTA - Cardiovascular Rhythm: regular Heart Sounds: Present: S1 & S2. Absent: gallop, rub - Extremities Extremities: no ischemia, No edema, Full ROM - Abdominal General gastrointestinal: soft, non-tender, non-distended, normal bowel sounds - Integumentary Integumentary: Present: clear, warm, dry - Neurologic Neurologic: CNII-XII intact, moves all extremities HEART Score - HEART Score Troponin: Troponin T 0.011 ng/mL (0.00-0.029) 12/18/19 14:45 Results - Labs CBC & Chem 7: 01/16/20 06:00 01/16/20 06:00 Labs: Laboratory Last Values WBC 8.4 K/mm3 (4.5-11.0) 01/16/20 06:00 RBC 3.19 M/mm3 (3.65-5.03) L 01/16/20 06:00 Hgb 7.9 gm/dl (11.8-15.2) L 01/16/20 06:00 Hct 26.2 % (35.5-45.6) L 01/16/20 06:00 MCV 82 fl (84-94) L 01/16/20 06:00 MCH 25 pg (28-32) L 01/16/20 06:00 MCHC 30 % (32-34) L 01/16/20 06:00 RDW 20.1 % (13.2-15.2) H 01/16/20 06:00 Plt Count 466 K/mm3 (140-440) H 01/16/20 06:00 Lymph % (Auto) 12.9 % (13.4-35.0) L 01/16/20 06:00 [place] % (Auto) 11.2 % (0.0-7.3) H 01/16/20 06:00 Eos % (Auto) 11.0 % (0.0-4.3) H 01/16/20 06:00 Baso % (Auto) 1.0 % (0.0-1.8) 01/16/20 06:00 Lymph # 1.1 K/mm3 (1.2-5.4) L 01/16/20 06:00 [place] # 0.9 K/mm3 (0.0-0.8) H 01/16/20 06:00 Eos # 0.9 K/mm3 (0.0-0.4) H 01/16/20 06:00 Baso # 0.1 K/mm3 (0.0-0.1) 01/16/20 06:00 Add Manual Diff Complete 12/24/19 04:53 Total Counted 100 12/24/19 04:53 Seg Neutrophils % 63.9 % (40.0-70.0) 01/16/20 06:00 Seg Neuts % (Manual) 60.0 % (40.0-70.0) 12/24/19 04:53 Band Neutrophils % 0 % 12/24/19 04:53 Lymphocytes % (Manual) 20.0 % (13.4-35.0) 12/24/19 04:53 Reactive Lymphs % (Man) 0 % 12/24/19 04:53 Monocytes % (Manual) 15.0 % (0.0-7.3) H 12/24/19 04:53 Eosinophils % (Manual) 4.0 % (0.0-4.3) 12/24/19 04:53 Basophils % (Manual) 0 % (0.0-1.8) 12/24/19 04:53 Metamyelocytes % 1.0 % 12/24/19 04:53 Myelocytes % 0 % 12/24/19 04:53 Promyelocytes % 0 % 12/24/19 04:53 Blast Cells % 0 % 12/24/19 04:53 Nucleated RBC % Not Reportable 12/24/19 04:53 Seg Neutrophils # 5.3 K/mm3 (1.8-7.7) 01/16/20 06:00 Seg Neutrophils # Man 3.5 K/mm3 (1.8-7.7) 12/24/19 04:53 Band Neutrophils # 0.0 K/mm3 12/24/19 04:53 Lymphocytes # (Manual) 1.2 K/mm3 (1.2-5.4) 12/24/19 04:53 Abs React Lymphs (Man) 0.0 K/mm3 12/24/19 04:53 Monocytes # (Manual) 0.9 K/mm3 (0.0-0.8) H 12/24/19 04:53 Eosinophils # (Manual) 0.2 K/mm3 (0.0-0.4) 12/24/19 04:53 Basophils # (Manual) 0.0 K/mm3 (0.0-0.1) 12/24/19 04:53 Metamyelocytes # 0.1 K/mm3 12/24/19 04:53 Myelocytes # 0.0 K/mm3 12/24/19 04:53 Promyelocytes # 0.0 K/mm3 12/24/19 04:53 Blast Cells # 0.0 K/mm3 12/24/19 04:53 WBC Morphology Not Reportable 12/24/19 04:53 Hypersegmented Neuts Not Reportable 12/24/19 04:53 Hyposegmented Neuts Not Reportable 12/24/19 04:53 Hypogranular Neuts Not Reportable 12/24/19 04:53 Smudge Cells Not Reportable 12/24/19 04:53 Toxic Granulation Not Reportable 12/24/19 04:53 Toxic Vacuolation Not Reportable 12/24/19 04:53 Dohle Bodies Not Reportable 12/24/19 04:53 Pelger-Huet Anomaly Not Reportable 12/24/19 04:53 Mervin Rods Not Reportable 12/24/19 04:53 Platelet Estimate Consistent w auto 12/24/19 04:53 Clumped Platelets Not Reportable 12/24/19 04:53 Plt Clumps, EDTA Not Reportable 12/24/19 04:53 Large Platelets Not Reportable 12/24/19 04:53 Giant Platelets Not Reportable 12/24/19 04:53 Platelet Satelliting Not Reportable 12/24/19 04:53 Plt Morphology Comment Not Reportable 12/24/19 04:53 RBC Morphology Not Reportable 12/24/19 04:53 Dimorphic RBCs Not Reportable 12/24/19 04:53 Polychromasia Rare 12/24/19 04:53 Hypochromasia 1+ 12/24/19 04:53 Poikilocytosis Not Reportable 12/24/19 04:53 Anisocytosis 1+ 12/24/19 04:53 Microcytosis Few 12/24/19 04:53 Macrocytosis Not Reportable 12/24/19 04:53 Spherocytes Not Reportable 12/24/19 04:53 Pappenheimer Bodies Not Reportable 12/24/19 04:53 Sickle Cells Not Reportable 12/24/19 04:53 Target Cells Not Reportable 12/24/19 04:53 Tear Drop Cells Not Reportable 12/24/19 04:53 Ovalocytes Few 12/24/19 04:53 Helmet Cells Not Reportable 12/24/19 04:53 Brink-Ringling Bodies Not Reportable 12/24/19 04:53 [place] Rings Not Reportable 12/24/19 04:53 Ileana Cells Not Reportable 12/24/19 04:53 Bite Cells Not Reportable 12/24/19 04:53 Crenated Cell Not Reportable 12/24/19 04:53 Elliptocytes Not Reportable 12/24/19 04:53 Acanthocytes (Spur) Not Reportable 12/24/19 04:53 Rouleaux Not Reportable 12/24/19 04:53 Hemoglobin C Crystals Not Reportable 12/24/19 04:53 Schistocytes Not Reportable 12/24/19 04:53 Malaria parasites Not Reportable 12/24/19 04:53 Gianni Bodies Not Reportable 12/24/19 04:53 Hem Pathologist Commnt No 12/24/19 04:53 PT 14.0 Sec. (12.2-14.9) 12/18/19 14:45 INR 1.10 (0.87-1.13) 12/18/19 14:45 APTT 29.4 Sec. (24.2-36.6) 12/18/19 14:45 D-Dimer 534.45 ng/mlDDU (0-234) H 12/18/19 14:45 ABG pH 7.223 pH Units (7.350-7.450) L 01/13/20 15:10 ABG pCO2 82.3 mm Hg 01/13/20 15:10 ABG pO2 81.4 mm Hg (80.0-90.0) 01/13/20 15:10 ABG HCO3 33.1 mmol/L (20.0-26.0) H 01/13/20 15:10 ABG O2 Saturation 94.7 % (95.0-99.0) L 01/13/20 15:10 ABG O2 Content 11.2 (0.0-44) 01/13/20 15:10 ABG Base Excess 4.2 mmol/L (-2.0-3.0) H 01/13/20 15:10 ABG Hemoglobin 8.5 gm/dl (14.0-18.0) L 01/13/20 15:10 ABG Carboxyhemoglobin 2.0 % (0.0-5.0) 01/13/20 15:10 ABG Methemoglobin 0.7 % (0.0-1.5) 01/13/20 15:10 Oxyhemoglobin 92.1 % (95.0-99.0) L 01/13/20 15:10 FiO2 50 % 01/13/20 15:10 Sodium 152 mmol/L (137-145) H 01/16/20 06:00 Potassium 4.6 mmol/L (3.6-5.0) 01/16/20 06:00 Chloride 110.2 mmol/L (98-107) H 01/16/20 06:00 Carbon Dioxide 36 mmol/L (22-30) H 01/16/20 06:00 Anion Gap 10 mmol/L 01/16/20 06:00 BUN 23 mg/dL (9-20) H 01/16/20 06:00 Creatinine 0.7 mg/dL (0.8-1.5) L 01/16/20 06:00 Estimated GFR > 60 ml/min 01/16/20 06:00 BUN/Creatinine Ratio 33 % 01/16/20 06:00 Glucose 161 mg/dL (75-100) H 01/16/20 06:00 POC Glucose 192 (70-105) H 01/16/20 06:10 Lactic Acid 1.70 mmol/L (0.7-2.0) 12/30/19 05:06 Calcium 8.8 mg/dL (8.4-10.2) 01/16/20 06:00 Phosphorus 3.70 mg/dL (2.5-4.5) 12/27/19 03:48 Magnesium 2.60 mg/dL (1.7-2.3) H 12/30/19 05:06 Ferritin 83.4 ng/mL (13.0-400.0) 12/18/19 14:45 Total Bilirubin 0.20 mg/dL (0.1-1.2) 01/11/20 05:45 AST 67 units/L (5-40) H 01/11/20 05:45 ALT 45 units/L (7-56) 01/11/20 05:45 Alkaline Phosphatase 111 units/L (35-129) 01/11/20 05:45 Ammonia 39.0 umol/L (25-60) 12/18/19 14:45 Lactate Dehydrogenase 235 units/L (91-180) H 12/18/19 14:45 Lactate Dehydrogenase 236 units/L (91-180) H 12/18/19 14:45 Total Creatine Kinase 40 units/L (55-170) L 12/18/19 14:45 Troponin T 0.011 ng/mL (0.00-0.029) 12/18/19 14:45 C-Reactive Protein 8.40 mg/dL (0.00-1.30) H 12/18/19 14:45 C-Reactive Protein 8.50 mg/dL (0.00-1.30) H 12/18/19 14:45 Total Protein 5.9 g/dL (6.3-8.2) L 01/11/20 05:45 Albumin 2.8 g/dL (3.9-5) L 01/11/20 05:45 Albumin/Globulin Ratio 0.9 % 01/11/20 05:45 Procalcitonin 0.22 ng/mL (<0.15) 12/18/19 14:45 TSH 1.460 mlU/mL (0.270-4.200) 01/13/20 20:37 Free T4 0.63 ng/dL (0.76-1.46) L 01/13/20 20:37 Urine Color Yellow (Yellow) 12/19/19 16:50 Urine Turbidity Clear (Clear) 12/19/19 16:50 Urine pH 5.0 (5.0-7.0) 12/19/19 16:50 Ur Specific [place] 1.010 (1.003-1.030) 12/19/19 16:50 Urine Protein <15 mg/dl mg/dL (Negative) 12/19/19 16:50 Urine Glucose (UA) 150 mg/dL (Negative) 12/19/19 16:50 Urine Ketones Neg mg/dL (Negative) 12/19/19 16:50 Urine Blood Neg (Negative) 12/19/19 16:50 Urine Nitrite Neg (Negative) 12/19/19 16:50 Urine Bilirubin Neg (Negative) 12/19/19 16:50 Urine Urobilinogen < 2.0 mg/dL (<2.0) 12/19/19 16:50 Ur Leukocyte Esterase Tr (Negative) 12/19/19 16:50 Urine WBC (Auto) 7.0 /HPF (0.0-6.0) H 12/19/19 16:50 Urine RBC (Auto) 4.0 /HPF (0.0-6.0) 12/19/19 16:50 U Epithel Cells (Auto) 1.0 /HPF (0-13.0) 12/19/19 16:50 Urine Bacteria (Auto) 1+ /HPF (Negative) 12/19/19 16:50 Urine Mucus Few /HPF 12/19/19 16:50 Urine Osmolality 140 Mosm/kg 12/25/19 16:45 Urine Creatinine < 4.2 mg/dL (0.1-20.0) 12/25/19 16:45 Urine Sodium 10 mmol/L 12/25/19 16:45 Urine Total Protein < 4 mg/dL (5-11.8) L 12/25/19 16:45 Digoxin 0.3 ng/mL (0.9-2.0) L 12/18/19 14:45 Salicylates < 0.3 mg/dL (2.8-20.0) L 12/18/19 14:45 Acetaminophen < 5.0 ug/mL (10.0-30.0) L 12/18/19 14:45 Plasma/Serum Alcohol < 0.01 % (0-0.07) 12/18/19 14:45 Coronavirus (PCR) Negative (Negative) 12/21/19 14:45 AFB Identification 01/05/20 09:05 Fungal Id Prelim 01/05/20 09:05 Blood Type A POSITIVE 12/18/19 14:45 Antibody Screen Negative 12/18/19 14:45 - Diagnostic Impressions Diagnostic Impressions: Echocardiogram 12/28/19 14:07 Transthoracic Echocardiogram Indication: SOB BP: 95/51 HR: 99 Conclusions *The left ventricular chamber size is mildly dilated. *There is no left ventricular hypertrophy. *Global left ventricular systolic function is mildly decreased. *The estimated ejection fraction is 45-50%. *Abnormal left ventricular diastolic filling is observed, consistent with impaired relaxation. *The right ventricular global systolic function is mildly reduced. *The right ventricular systolic pressure is calculated at 53 mmHg. Findings Left Ventricle: The left ventricular chamber size is mildly dilated. There is no left ventricular hypertrophy. Global left ventricular systolic function is mildly decreased. The estimated ejection fraction is 45-50%. Abnormal left ventricular diastolic filling is observed, consistent with impaired relaxation. Left Atrium: The left atrial chamber size is normal. Right Ventricle: The right ventricular cavity size is normal. The right ventricular global systolic function is mildly reduced. Right Atrium: The right atrial cavity size is normal. Aortic Valve: The aortic valve leaflets are mildly thickened. There is no evidence of aortic regurgitation. Mitral Valve: The mitral valve leaflets are mildly thickened. There is no evidence of mitral regurgitation. Tricuspid Valve: The tricuspid valve leaflets are normal. There is mild tricuspid regurgitation. The right ventricular systolic pressure is calculated at 53 mmHg. Pulmonic Valve: The pulmonic valve appears normal. There is trace pulmonic regurgitation. Pericardium: There is no pericardial effusion. Aorta: The aorta appears normal. Venous: The inferior vena cava is dilated. Measurements Chambers 2D Name Value Normal Range IVSd (2D) 1.08 cm (0.6 - 1.1) LVPWd (2D) 1 cm (0.6 - 1.1) LVIDd (2D) 4.67 cm (3.7 - 5.6) LVIDs (2D) 3.89 cm (2 - 3.8) LV FS (2D) 16.76 % - EF Teichholz (2D) 35.14 % - Ao root diameter (2D) 2.86 cm (2 - 3.7) Volumes/Mass Name Value Normal Range LA ESV SP 4CH (A/L) 31.8 ml - LA ESV SP 2CH (A/L) 27.37 ml - LA ESV BP (A/L) 33.43 ml - LA ESV BP (A/L) index 14.11 ml/m2 - LA ESV SP 4CH (MOD) 26.83 ml - LA ESV SP 2CH (MOD) 29.59 ml - LA ESV BP (MOD) 30.47 ml - LA ESV BP (MOD) index 12.86 ml/m2 - Diastolic/Systolic Function Name Value Normal Range MV E-wave Vmax 0.39 m/sec - MV deceleration time 115.69 msec - MV A-wave Vmax 0.63 m/sec - MV E:A ratio 0.62 ratio - Aortic Valve Name Value Normal Range AV Vmax 1.14 m/sec - AV VTI 20.1 cm - AV peak gradient 5.17 mmHg - AV mean gradient 3.89 mmHg - LVOT diameter 2.02 cm - LVOT Vmax 0.99 m/sec - LVOT VTI 16.45 cm - LVOT peak gradient 3.95 mmHg - LVOT mean gradient 2.45 mmHg - SV LVOT 52.45 ml - RALPH (continuity Vmax) 2.78 cm2 - RALPH (continuity VTI) 2.61 cm2 - Tricuspid Valve Name Value Normal Range TR Vmax 3.36 m/sec - TR peak gradient 45 mmHg - RAP 8 mmHg - RVSP 53 mmHg - IVC diameter 2.33 cm (1.2 - 2.3) Pulmonic Valve/Qp:Qs Name Value Normal Range PV Vmax 0.89 m/sec - PV peak gradient 3.16 mmHg - UT end-diastolic Vmax 1.42 m/sec - PV acceleration time 79.92 msec - Sykes/IV: Voiding Method Condom Catheter IV Catheter Type [Right Upper PICC Line arm] IV Catheter Type [Right Leg] Intra-osseous IV Catheter Type [Right Wrist] Peripheral IV IV Catheter Type [Right Hand] INT / Saline Lock IV Catheter Type [Left Hand] INT / Saline Lock IV Catheter Type [Left Forearm INT / Saline Lock ] IV Catheter Type [Left Triple Lumen Cath Internal Jugular] Active Medications - Current Medications Current Medications: Generic Name Dose Route Start Last Admin Trade Name Freq PRN Reason Stop Dose Admin Acetaminophen 650 mg 12/29/19 09:21 01/03/20 18:31 Tylenol PO 650 mg Q4H PRN Administration Non Cardiac Pain or Temp>100.5 Albuterol/Ipratropium 1 ampul 12/18/19 14:00 01/15/20 20:38 Duoneb *Not For Prn Use* IH 1 ampul TIDRT SHANEL Administration Lipase/Protease/Amylase 1 each 12/19/19 08:[address] 10,500 Unit FEEDTUBE PRN PRN For Clogged Feeding Tube Aspirin 81 mg 12/19/19 10:00 01/16/20 10:10 Baby Aspirin PO 81 mg DAILY SHANEL Administration Atropine Sulfate 1 mg 01/09/20 13:50 01/10/20 18:00 Atropine 0.1% (Cardiac) IV 1 mg PRN PRN Administration Bradycardia Bisacodyl 10 mg 01/02/20 15:48 01/02/20 18:25 Dulcolax UT 10 mg QDAY PRN Administration Constipation Docusate Sodium 100 mg 01/01/20 22:00 01/16/20 10:10 Colace PO 100 mg BID SHANEL Administration Famotidine 20 mg 12/20/19 10:00 01/16/20 10:11 Pepcid PO 20 mg BID SHANEL Administration Fentanyl 50 mcg 12/27/19 16:57 Sublimaze IV Q10MIN PRN ANALGESIA Folic Acid 1 mg 12/19/19 10:00 01/16/20 10:10 Folvite PO 1 mg DAILY SHANEL Administration Heparin Sodium (Porcine) 5,000 unit 12/18/19 22:00 01/16/20 10:11 Heparin SUB-Q 5,000 unit Q12HR SHANEL Administration Hydrophilic Ointment 1 applic 12/18/19 12:35 Vaseline Lip Therapy TP Q2HR PRN Dry Lips Fentanyl Citrate 2,000 mcg in 100 mls @ 5.85 mls/hr 12/27/19 17:00 01/16/20 09:08 Fentanyl Drip Premix IV 3 mcg/kg/hr TITR SHANEL 17.55 mls/hr Administration Protocol 1 MCG/KG/HR Norepinephrine 4 mg in 250 mls @ 7.5 mls/hr 12/28/19 15:00 01/09/20 09:02 Levophed Drip 4 Mg/Ns 250 Ml IV 0 mcg/min TITR SHANEL 0 mls/hr Titration Protocol 2 MCG/MIN Vasopressin 20 unit/ Sodium 101 mls @ 9.09 mls/hr 12/30/19 12:30 01/01/20 13:44 Chloride IV 0 units/min TITR SHANEL 0 mls/hr Titration Protocol 0.03 UNITS/MIN Dopamine HCl/Dextrose 800 mg in 250 mls @ 4.388 mls/hr 12/31/19 16:00 01/12/20 23:03 Intropin Drip 800 Mg/D5w 250 Ml IV 2 mcg/kg/min TITR SHANEL 4.388 mls/hr Administration Protocol 2 MCG/KG/MIN Insulin Glargine 15 units 01/10/20 14:00 01/16/20 00:43 Lantus SUB-Q 15 units BID SHANEL Administration Insulin Human Lispro 0 unit 12/31/19 14:00 01/16/20 06:04 Humalog SUB-Q 3 unit Q4HR SHANEL Administration Protocol Levothyroxine Sodium 88 mcg 12/19/19 06:00 01/16/20 05:48 Synthroid PO 88 mcg QAM@0600 SHANEL Administration Multi-Ingred Cream/Lotion/Oil/Oint 1 applic 12/18/19 12:35 Artificial Tears Ophth Oint OU Q4HR PRN Dry Eye(s) Polyethylene Glycol 17 gm 01/01/20 22:00 01/15/20 21:36 Miralax 3350 PO 17 gm QHS SHANEL Administration Simple Syrup 15 ml 12/19/19 08:29 01/06/20 04:58 Simple Syrup FEEDTUBE 15 ml PRN PRN Administration Hypoglycemia Simple Syrup 30 ml 12/19/19 08:29 Simple Syrup FEEDTUBE PRN PRN Hypoglycemia Sodium Bicarbonate 325 mg 12/19/19 08:29 Sodium Bicarbonate FEEDTUBE PRN PRN For Clogged Feeding Tube Sodium Chloride 10 ml 12/18/19 22:00 01/15/20 21:43 Sodium Chloride Flush Syringe 10 Ml IV 10 ml BID SHANEL Administration Sodium Chloride 10 ml 12/18/19 13:31 Sodium Chloride Flush Syringe 10 Ml IV PRN PRN LINE FLUSH Nutrition/Malnutrition Assess - Dietary Evaluation Nutrition/Malnutrition Findings: Nutrition Notes Start: 12/19/19 08:16 Freq: Status: Active Protocol: Document 01/14/20 12:00 LM (Rec: 01/14/20 12:23 LM [email or web address]) Nutrition Notes Initial or Follow up Reassessment Current Diagnosis Diabetes,Sepsis,Hypertension, Heart Failure,Respiratory Failure Other Pertinent Diagnosis COVID-19 (-), pneu Current Diet Vital AF 1.2 at 65ml/hr Labs/Tests Reviewed Pertinent Medications Reviewed Height 6 ft 2 in Weight 117 kg [place] Body Weight (kg) 86.36 BMI 33.1 Weight Status Obese Subjective/Other Information TF running at goal rate. No new Na lab. Percent of energy/protein needs met: 94%/68% Burn Absent Trauma Absent Current % PO Negligible Minimum of two criteria No physical signs of malnutrition #1 Nutrition Diagnosis Inadequate oral intake Diagnosis Progress(for reassessment Continues documentation) Is patient on ventilator? Yes Is Patient Ambulatory and/or Out of Bed No REE-([place]-confined to bed) 2469.960 Kcal/Kg value to use for calculation 17 Approximate Energy Requirements Using 1989 kcal/Kg Calculation Used for Recommendations Kcal/kg Additional Notes Protein: 172g (>/=2g/kg using IBW 86kg) Fluid 1ml/kcal Nutrition Intervention Change Diet Order: TF Nutrition Support: Vital AF 1.2 at 65ml/hr Flush 250ml q4h for hypernatremia Flush 100ml q4h Kcal 1,872 Protein (gm) 117 Fluid (mL) 1,265 Goal #1 TF tolerance Goal #2 Meet at least 75% of energy and protein needs Anticipated Discharge Needs: unable to determine at this time Follow-Up By: 01/17/20 Additional Comments F/U for TF tolerance, Na
[2020-01-16] MEDS: DEXTROSE 5% IN WATER 1,000 ML IV SCH (14:12)
[2020-01-16] MEDS: POLYETHYLENE GLYCOL 3350 17 GM POWDER PO SCH (22:05)
[2020-01-17] MEDS: INSULIN LISPRO 100 UNIT/ML SUB-Q SCH ×6 (02:04→22:20)
[2020-01-17] MEDS: fentaNYL 100 MCG/2 ML INJ IV PRN (03:21)
[2020-01-17] MEDS: DEXTROSE 5% IN WATER 1,000 ML IV SCH ×2 (03:26→15:01)
[2020-01-17] MEDS: LEVOTHYROXINE 88 MCG TAB PO SCH (06:08)
[2020-01-17 06:37] LABS: Basophils # (Auto) 0.1 K/mm3 (0.0-0.1); Basophils % (Auto) 0.8 % (0.0-1.8); Eosinophils % (Auto) 11.9 % (0.0-4.3); Lymphocytes # (Auto) 1.3 K/mm3 (1.2-5.4); Mean Corpuscular HGB Conc 30 % (32-34); Mean Corpuscular Volume 83 fl (84-94); Monocytes # (Auto) 0.8 K/mm3 (0.0-0.8); Monocytes % (Auto) 9.7 % (0.0-7.3); Platelet Count 517 K/mm3 (140-440)
[2020-01-17 06:42] LABS: Hemoglobin 8.6 gm/dl (11.8-15.2)
[2020-01-17 06:43] LABS: Red Cell Distribution Width 21.1 % (13.2-15.2)
[2020-01-17 07:00] LABS: BUN/Creatinine Ratio 35; Blood Urea Nitrogen 21 mg/dL (9-20); Calcium 8.9 mg/dL (8.4-10.2); Hemolysis Index 1
[2020-01-17] MEDS: IPRATROPIUM/ALBUTEROL SULFATE 3 ML AMPUL.NEB IH SCH ×3 (07:20→20:12)
--- NOTE | 2020-01-17 08:40 | Progress Note ---
Assessment and Plan Acute Hypoxemic Respiratory Failure Severe Sepsis with Shock Bilateral Pneumonia Bradycardia JAGDEEP secondary to ATN, non oliguric Hypernatremia Morbid Obesity H/O CHF JOE - Continue with dopamine, monitor bradycardia. -CXR and ABG prn - Continue Free water at 250 cc q4 and hypotonic solutions for hypernatremia -Continue D5 water at 50ml/hour, improving hypernatremia -Continue to monitor off antibiotics, trend temperature curve and WCC -Tracheostomy and PEG placement- sisters are agreeable - planned for tomorrow -Continue with bowel regimen -Daily SAT and SBT assessment as tolerated - Continue care as below otherwise - accuchecks with glycemic control per SSI (While critically ill target blood glucose of 140-180 mg/dL; avoid hypoglycemia) - sedation for target RASS 0 to -1 - continue to wean supplemental oxygen for target O2 sat's > 92% - continue bronchodilators with pulmonary hygiene per RT - VAP bundle addressed - lung protective strategies - wean per pulmonary driven protocols otherwise - continue to avoid benzodiazepines, reduce the possibility of delirium - prn analgesia per CPOT score - Maintenance of sleep-wake cycle - continue to avoid benzodiazepines, reduce the possibility of delirium - continue enteral nutritional support at goal rate as tolerated - G.I. & VTE prophylaxis - PT/OT/ROM exercises - continue mobility protocols for pressure ulcer prophylaxis - repeat COVID-19 test negative - continue aspiration precautions - continue accuchecks with glycemic control per SSI (While critically ill target blood glucose of 140-180 mg/dL; avoid hypoglycemia) - Monitor hemodynamics closely - continue other care per attending / other consultants .... Re-evaluate in am & prn CONDITION: CRITICAL PROGNOSIS: GUARDED CODE STATUS: FULL CODE The high probability of a clinically significant, sudden or life-threatening deterioration of the [respiratory, cardiovascular, GI & neurologic] system(s) required my full and direct attention, intervention and personal management. The aggregate critical care time was [31] minutes without overlap. Time includes spent on; [x] Data Review and interpretation [x] Patient assessment and monitoring of vital signs [x] Documentation [x] Medication orders and management Subjective Date of service: 01/17/20 Principal diagnosis: Ac. Hypoxemic Resp Failure; Septic Shock; Magdiel. PNA; PUI COVID-19; CHF; JOE Interval history: Patient is seen today for: Acute Hypoxemic Respiratory Failure; Severe Sepsis with Shock; Bilateral Pneumonia; PUI COVID-19; Morbid Obesity; H/O CHF; JOE Seen and examined at bedside; 24hour events reviewed; nursing and respiratory care staff consulted; no adverse overnight events reported to me; resting peacefully in bed; remains on MVS; remains on vasopressor support dopamine at 2 mcg for bradycardia. No fevers,remains on free water flushes of 240 q4 ,on going agitation at night, trying to climb out of bed, reaching for ETT Objective Vital Signs - 12hr 01/16/20 01/16/20 01/16/20 20:46 21:00 21:16 Temperature Pulse Rate 61 69 62 Pulse Rate [ Bilateral] Pulse Rate [ From Monitor] Respiratory 8 L 15 14 Rate Respiratory Rate [Bilateral ] Blood Pressure 142/73 142/73 146/80 O2 Sat by Pulse 99 98 99 Oximetry 01/16/20 01/16/20 01/16/20 21:30 21:46 22:00 Temperature Pulse Rate 70 37 L 67 Pulse Rate [ Bilateral] Pulse Rate [ From Monitor] Respiratory 14 12 14 Rate Respiratory Rate [Bilateral ] Blood Pressure 146/80 151/84 151/84 O2 Sat by Pulse 97 98 96 Oximetry 01/16/20 01/16/20 01/16/20 22:16 22:30 22:45 Temperature Pulse Rate 57 L 65 75 Pulse Rate [ Bilateral] Pulse Rate [ From Monitor] Respiratory 14 14 22 Rate Respiratory Rate [Bilateral ] Blood Pressure 136/73 136/73 118/74 O2 Sat by Pulse 96 97 98 Oximetry 01/16/20 01/16/20 01/16/20 23:00 23:16 23:30 Temperature Pulse Rate 55 L 57 L 53 L Pulse Rate [ Bilateral] Pulse Rate [ From Monitor] Respiratory 14 14 14 Rate Respiratory Rate [Bilateral ] Blood Pressure 118/74 133/67 133/67 O2 Sat by Pulse 99 98 99 Oximetry 01/16/20 01/17/20 01/17/20 23:45 00:00 00:16 Temperature 91.7 F L Pulse Rate 57 L 68 47 L Pulse Rate [ Bilateral] Pulse Rate [ 51 L From Monitor] Respiratory 14 10 L 14 Rate Respiratory Rate [Bilateral ] Blood Pressure 131/73 131/73 176/100 O2 Sat by Pulse 99 96 98 Oximetry 01/17/20 01/17/20 01/17/20 00:30 00:33 00:46 Temperature Pulse Rate 56 L 44 L 51 L Pulse Rate [ Bilateral] Pulse Rate [ From Monitor] Respiratory 14 0 L Rate Respiratory Rate [Bilateral ] Blood Pressure 176/100 197/103 188/100 O2 Sat by Pulse 98 98 98 Oximetry 01/17/20 01/17/20 01/17/20 00:59 01:00 01:16 Temperature Pulse Rate 66 53 L 56 L Pulse Rate [ Bilateral] Pulse Rate [ From Monitor] Respiratory 13 14 Rate Respiratory Rate [Bilateral ] Blood Pressure 188/100 159/77 O2 Sat by Pulse 98 98 Oximetry 01/17/20 01/17/20 01/17/20 01:30 01:45 02:00 Temperature Pulse Rate 58 L 56 L 47 L Pulse Rate [ Bilateral] Pulse Rate [ From Monitor] Respiratory 14 14 6 L Rate Respiratory Rate [Bilateral ] Blood Pressure 159/77 156/81 147/70 O2 Sat by Pulse 97 94 91 Oximetry 01/17/20 01/17/20 01/17/20 02:16 02:30 02:46 Temperature Pulse Rate 53 L 51 L 51 L Pulse Rate [ Bilateral] Pulse Rate [ From Monitor] Respiratory 16 15 14 Rate Respiratory Rate [Bilateral ] Blood Pressure 169/85 190/85 147/73 O2 Sat by Pulse 96 95 96 Oximetry 01/17/20 01/17/20 01/17/20 03:00 03:16 03:21 Temperature Pulse Rate 50 L 84 Pulse Rate [ Bilateral] Pulse Rate [ From Monitor] Respiratory 16 16 16 Rate Respiratory Rate [Bilateral ] Blood Pressure 147/73 161/68 O2 Sat by Pulse 96 86 Oximetry 01/17/20 01/17/20 01/17/20 03:30 03:46 04:00 Temperature Pulse Rate 88 88 86 Pulse Rate [ Bilateral] Pulse Rate [ From Monitor] Respiratory 14 14 14 Rate Respiratory Rate [Bilateral ] Blood Pressure 141/87 120/75 120/75 O2 Sat by Pulse 95 94 94 Oximetry 01/17/20 01/17/20 01/17/20 04:16 04:30 04:40 Temperature Pulse Rate 87 81 41 L Pulse Rate [ Bilateral] Pulse Rate [ From Monitor] Respiratory 14 14 Rate Respiratory Rate [Bilateral ] Blood Pressure 128/77 119/83 119/83 O2 Sat by Pulse 96 93 96 Oximetry 01/17/20 01/17/20 01/17/20 04:46 05:00 05:16 Temperature Pulse Rate 74 84 91 H Pulse Rate [ Bilateral] Pulse Rate [ From Monitor] Respiratory 13 14 16 Rate Respiratory Rate [Bilateral ] Blood Pressure 128/77 152/85 152/77 O2 Sat by Pulse 99 97 97 Oximetry 01/17/20 01/17/20 01/17/20 05:30 05:46 06:00 Temperature Pulse Rate 107 H 75 98 H Pulse Rate [ Bilateral] Pulse Rate [ From Monitor] Respiratory 19 15 16 Rate Respiratory Rate [Bilateral ] Blood Pressure 152/77 152/77 152/77 O2 Sat by Pulse 96 98 97 Oximetry 01/17/20 01/17/20 01/17/20 06:15 06:30 06:45 Temperature Pulse Rate 115 H 60 71 Pulse Rate [ Bilateral] Pulse Rate [ From Monitor] Respiratory 21 11 L 16 Rate Respiratory Rate [Bilateral ] Blood Pressure 139/73 167/119 131/82 O2 Sat by Pulse 87 96 98 Oximetry 01/17/20 01/17/20 01/17/20 07:00 07:16 07:20 Temperature Pulse Rate 81 68 67 Pulse Rate [ 61 Bilateral] Pulse Rate [ From Monitor] Respiratory 14 14 Rate Respiratory 15 Rate [Bilateral ] Blood Pressure 147/96 121/67 121/67 O2 Sat by Pulse 98 98 97 Oximetry 01/17/20 07:52 Temperature 97.9 F Pulse Rate Pulse Rate [ Bilateral] Pulse Rate [ From Monitor] Respiratory Rate Respiratory Rate [Bilateral ] Blood Pressure O2 Sat by Pulse Oximetry Constitutional: no acute distress, other (elderly obese AAM with mildly increrased respiratory effort at rest on MVS) Eyes: non-icteric ENT: oropharynx moist, other (ETT 24 cm KOLBY) Neck: supple, no lymphadenopathy, no JVD Effort: normal Ascultation: Bilateral: diminished breath sounds, rhonchi, other (diminished bibasilar air entry) Percussion: Bilateral: not dull Cardiovascular: regular rate and rhythm (Bradycardia), other (S1,S2) Gastrointestinal: normoactive bowel sounds, soft, non-tender, other (pr otuberant) Integumentary: rash (stasis dermatyitis) Extremities: no cyanosis, pink and warm, pulses normal, no ischemia or petechiae, edema (trace) Neurologic: pupils equal and round, other (responds to verbal and tactile sti muli) Psychiatric: other (unable to assess) CBC and BMP: 01/17/20 06:20 01/17/20 06:20 ABG, PT/INR, D-dimer: ABG ABG pH 7.223 pH Units (7.350-7.450) L 01/13/20 15:10 ABG pCO2 82.3 mm Hg 01/13/20 15:10 ABG pO2 81.4 mm Hg (80.0-90.0) 01/13/20 15:10 ABG O2 Saturation 94.7 % (95.0-99.0) L 01/13/20 15:10 PT/INR, D-dimer PT 14.0 Sec. (12.2-14.9) 12/18/19 14:45 INR 1.10 (0.87-1.13) 12/18/19 14:45 D-Dimer 534.45 ng/mlDDU (0-234) H 12/18/19 14:45 Abnormal lab findings: Abnormal Labs 12/18/19 12/18/19 12/18/19 12:23 14:45 14:45 WBC RBC Hgb 10.4 L Hct 35.2 L MCV MCH 25 L MCHC 30 L RDW 18.8 H Plt Count Lymph % (Auto) [place] % (Auto) 11.6 H Eos % (Auto) 4.8 H Baso % (Auto) Lymph # [place] # 1.0 H Eos # Baso # Seg Neutrophils % Monocytes % (Manual) Monocytes # (Manual) D-Dimer ABG pH ABG pO2 ABG HCO3 ABG O2 Saturation ABG Base Excess ABG Hemoglobin Oxyhemoglobin Sodium Potassium Chloride Carbon Dioxide BUN Creatinine Glucose POC Glucose 328 H Lactic Acid Calcium Magnesium AST ALT Lactate Dehydrogenase Total Creatine Kinase 40 L C-Reactive Protein Total Protein Albumin Free T4 Urine WBC (Auto) Urine Total Protein Digoxin Salicylates Acetaminophen 12/18/19 12/18/19 12/18/19 14:45 14:45 14:45 WBC RBC Hgb Hct MCV MCH MCHC RDW Plt Count Lymph % (Auto) [place] % (Auto) Eos % (Auto) Baso % (Auto) Lymph # [place] # Eos # Baso # Seg Neutrophils % Monocytes % (Manual) Monocytes # (Manual) D-Dimer 534.45 H ABG pH ABG pO2 ABG HCO3 ABG O2 Saturation ABG Base Excess ABG Hemoglobin Oxyhemoglobin Sodium 156 H Potassium Chloride 112.3 H Carbon Dioxide 31 H BUN 32 H Creatinine Glucose 328 H POC Glucose Lactic Acid Calcium Magnesium AST ALT Lactate Dehydrogenase 235 H Total Creatine Kinase C-Reactive Protein 8.50 H Total Protein Albumin 3.6 L Free T4 Urine WBC (Auto) Urine Total Protein Digoxin 0.3 L Salicylates < 0.3 L Acetaminophen 12/18/19 12/18/19 12/18/19 14:45 14:45 16:00 WBC RBC Hgb Hct MCV MCH MCHC RDW Plt Count Lymph % (Auto) [place] % (Auto) Eos % (Auto) Baso % (Auto) Lymph # [place] # Eos # Baso # Seg Neutrophils % Monocytes % (Manual) Monocytes # (Manual) D-Dimer ABG pH ABG pO2 69.8 L ABG HCO3 31.8 H ABG O2 Saturation ABG Base Excess 5.4 H ABG Hemoglobin 10.0 L Oxyhemoglobin 92.9 L Sodium Potassium Chloride Carbon Dioxide BUN Creatinine Glucose 314 H POC Glucose Lactic Acid Calcium Magnesium AST ALT Lactate Dehydrogenase 236 H Total Creatine Kinase C-Reactive Protein 8.40 H Total Protein Albumin Free T4 Urine WBC (Auto) Urine Total Protein Digoxin Salicylates Acetaminophen < 5.0 L 12/18/19 12/18/19 12/18/19 16:35 18:30 22:56 WBC RBC Hgb Hct MCV MCH MCHC RDW Plt Count Lymph % (Auto) [place] % (Auto) Eos % (Auto) Baso % (Auto) Lymph # [place] # Eos # Baso # Seg Neutrophils % Monocytes % (Manual) Monocytes # (Manual) D-Dimer ABG pH ABG pO2 ABG HCO3 ABG O2 Saturation ABG Base Excess ABG Hemoglobin Oxyhemoglobin Sodium Potassium Chloride Carbon Dioxide BUN Creatinine Glucose POC Glucose 310 H 353 H Lactic Acid 2.50 H* Calcium Magnesium AST ALT Lactate Dehydrogenase Total Creatine Kinase C-Reactive Protein Total Protein Albumin Free T4 Urine WBC (Auto) Urine Total Protein Digoxin Salicylates Acetaminophen 12/19/19 12/19/19 12/19/19 04:13 04:13 06:00 WBC RBC Hgb 10.0 L Hct 34.2 L MCV MCH 25 L MCHC 29 L RDW 19.0 H Plt Count Lymph % (Auto) [place] % (Auto) 10.1 H Eos % (Auto) Baso % (Auto) Lymph # [place] # 1.1 H Eos # Baso # Seg Neutrophils % 71.8 H Monocytes % (Manual) Monocytes # (Manual) D-Dimer ABG pH ABG pO2 186.5 H ABG HCO3 27.8 H ABG O2 Saturation 99.1 H ABG Base Excess ABG Hemoglobin 10.4 L Oxyhemoglobin Sodium 157 H Potassium Chloride 119.1 H Carbon Dioxide BUN 26 H Creatinine Glucose 302 H POC Glucose Lactic Acid Calcium 7.9 L Magnesium AST 85 H ALT 61 H Lactate Dehydrogenase Total Creatine Kinase C-Reactive Protein Total Protein Albumin 3.0 L Free T4 Urine WBC (Auto) Urine Total Protein Digoxin Salicylates Acetaminophen 12/19/19 12/19/19 12/19/19 08:30 11:55 16:50 WBC RBC Hgb Hct MCV MCH MCHC RDW Plt Count Lymph % (Auto) [place] % (Auto) Eos % (Auto) Baso % (Auto) Lymph # [place] # Eos # Baso # Seg Neutrophils % Monocytes % (Manual) Monocytes # (Manual) D-Dimer ABG pH ABG pO2 ABG HCO3 ABG O2 Saturation ABG Base Excess ABG Hemoglobin Oxyhemoglobin Sodium Potassium Chloride Carbon Dioxide BUN Creatinine Glucose POC Glucose 264 H 251 H Lactic Acid Calcium Magnesium AST ALT Lactate Dehydrogenase Total Creatine Kinase C-Reactive Protein Total Protein Albumin Free T4 Urine WBC (Auto) 7.0 H Urine Total Protein Digoxin Salicylates Acetaminophen 12/19/19 12/19/19 12/20/19 17:41 23:42 03:35 WBC RBC Hgb Hct MCV MCH MCHC RDW Plt Count Lymph % (Auto) [place] % (Auto) Eos % (Auto) Baso % (Auto) Lymph # [place] # Eos # Baso # Seg Neutrophils % Monocytes % (Manual) Monocytes # (Manual) D-Dimer ABG pH ABG pO2 ABG HCO3 27.7 H ABG O2 Saturation ABG Base Excess ABG Hemoglobin 11.6 L Oxyhemoglobin 94.9 L Sodium Potassium Chloride Carbon Dioxide BUN Creatinine Glucose POC Glucose 180 H 205 H Lactic Acid Calcium Magnesium AST ALT Lactate Dehydrogenase Total Creatine Kinase C-Reactive Protein Total Protein Albumin Free T4 Urine WBC (Auto) Urine Total Protein Digoxin Salicylates Acetaminophen 12/20/19 12/20/19 12/20/19 04:45 04:45 05:27 WBC RBC Hgb 9.4 L Hct 31.4 L MCV MCH 25 L MCHC 30 L RDW 19.4 H Plt Count Lymph % (Auto) [place] % (Auto) 10.2 H Eos % (Auto) 6.0 H Baso % (Auto) Lymph # 0.9 L [place] # Eos # Baso # Seg Neutrophils % Monocytes % (Manual) Monocytes # (Manual) D-Dimer ABG pH ABG pO2 ABG HCO3 ABG O2 Saturation ABG Base Excess ABG Hemoglobin Oxyhemoglobin Sodium 153 H Potassium Chloride 114.6 H Carbon Dioxide BUN Creatinine Glucose 170 H POC Glucose 188 H Lactic Acid Calcium 7.9 L Magnesium AST ALT Lactate Dehydrogenase Total Creatine Kinase C-Reactive Protein Total Protein Albumin Free T4 Urine WBC (Auto) Urine Total Protein Digoxin Salicylates Acetaminophen 12/20/19 12/20/19 12/21/19 12:26 18:20 00:20 WBC RBC Hgb Hct MCV MCH MCHC RDW Plt Count Lymph % (Auto) [place] % (Auto) Eos % (Auto) Baso % (Auto) Lymph # [place] # Eos # Baso # Seg Neutrophils % Monocytes % (Manual) Monocytes # (Manual) D-Dimer ABG pH ABG pO2 ABG HCO3 ABG O2 Saturation ABG Base Excess ABG Hemoglobin Oxyhemoglobin Sodium Potassium Chloride Carbon Dioxide BUN Creatinine Glucose POC Glucose 200 H 263 H 218 H Lactic Acid Calcium Magnesium AST ALT Lactate Dehydrogenase Total Creatine Kinase C-Reactive Protein Total Protein Albumin Free T4 Urine WBC (Auto) Urine Total Protein Digoxin Salicylates Acetaminophen 12/21/19 12/21/19 12/21/19 04:38 05:26 12:35 WBC RBC Hgb Hct MCV MCH MCHC RDW Plt Count Lymph % (Auto) [place] % (Auto) Eos % (Auto) Baso % (Auto) Lymph # [place] # Eos # Baso # Seg Neutrophils % Monocytes % (Manual) Monocytes # (Manual) D-Dimer ABG pH ABG pO2 ABG HCO3 ABG O2 Saturation ABG Base Excess ABG Hemoglobin Oxyhemoglobin Sodium 149 H Potassium 3.5 L Chloride 110.5 H Carbon Dioxide BUN Creatinine Glucose 158 H POC Glucose 193 H 193 H Lactic Acid Calcium Magnesium AST ALT Lactate Dehydrogenase Total Creatine Kinase C-Reactive Protein Total Protein Albumin Free T4 Urine WBC (Auto) Urine Total Protein Digoxin Salicylates Acetaminophen 12/21/19 12/22/19 12/22/19 18:29 00:03 05:15 WBC RBC Hgb 10.3 L Hct 34.7 L MCV MCH 25 L MCHC 30 L RDW 19.4 H Plt Count Lymph % (Auto) 9.0 L [place] % (Auto) 12.3 H Eos % (Auto) 5.0 H Baso % (Auto) Lymph # 0.5 L [place] # Eos # Baso # Seg Neutrophils % 73.2 H Monocytes % (Manual) Monocytes # (Manual) D-Dimer ABG pH ABG pO2 ABG HCO3 ABG O2 Saturation ABG Base Excess ABG Hemoglobin Oxyhemoglobin Sodium Potassium Chloride Carbon Dioxide BUN Creatinine Glucose POC Glucose 186 H 143 H Lactic Acid Calcium Magnesium AST ALT Lactate Dehydrogenase Total Creatine Kinase C-Reactive Protein Total Protein Albumin Free T4 Urine WBC (Auto) Urine Total Protein Digoxin Salicylates Acetaminophen 12/22/19 12/22/19 12/22/19 05:15 06:02 12:13 WBC RBC Hgb Hct MCV MCH MCHC RDW Plt Count Lymph % (Auto) [place] % (Auto) Eos % (Auto) Baso % (Auto) Lymph # [place] # Eos # Baso # Seg Neutrophils % Monocytes % (Manual) Monocytes # (Manual) D-Dimer ABG pH ABG pO2 ABG HCO3 ABG O2 Saturation ABG Base Excess ABG Hemoglobin Oxyhemoglobin Sodium 152 H Potassium Chloride 113.5 H Carbon Dioxide BUN Creatinine Glucose 126 H POC Glucose 144 H 159 H Lactic Acid Calcium Magnesium AST ALT Lactate Dehydrogenase Total Creatine Kinase C-Reactive Protein Total Protein Albumin Free T4 Urine WBC (Auto) Urine Total Protein Digoxin Salicylates Acetaminophen 12/22/19 12/22/19 12/23/19 18:03 23:50 05:27 WBC RBC Hgb Hct MCV MCH MCHC RDW Plt Count Lymph % (Auto) [place] % (Auto) Eos % (Auto) Baso % (Auto) Lymph # [place] # Eos # Baso # Seg Neutrophils % Monocytes % (Manual) Monocytes # (Manual) D-Dimer ABG pH ABG pO2 ABG HCO3 ABG O2 Saturation ABG Base Excess ABG Hemoglobin Oxyhemoglobin Sodium Potassium Chloride Carbon Dioxide BUN Creatinine Glucose POC Glucose 140 H 227 H 185 H Lactic Acid Calcium Magnesium AST ALT Lactate Dehydrogenase Total Creatine Kinase C-Reactive Protein Total Protein Albumin Free T4 Urine WBC (Auto) Urine Total Protein Digoxin Salicylates Acetaminophen 12/23/19 12/23/19 12/23/19 12:13 16:05 16:40 WBC RBC Hgb Hct MCV MCH MCHC RDW Plt Count Lymph % (Auto) [place] % (Auto) Eos % (Auto) Baso % (Auto) Lymph # [place] # Eos # Baso # Seg Neutrophils % Monocytes % (Manual) Monocytes # (Manual) D-Dimer ABG pH 7.259 L ABG pO2 76.2 L ABG HCO3 30.6 H ABG O2 Saturation 94.6 L ABG Base Excess ABG Hemoglobin 11.5 L Oxyhemoglobin 92.2 L Sodium 163 H* D Potassium 3.4 L Chloride 120.1 H Carbon Dioxide BUN Creatinine Glucose 162 H POC Glucose 132 H Lactic Acid Calcium Magnesium AST ALT Lactate Dehydrogenase Total Creatine Kinase C-Reactive Protein Total Protein Albumin Free T4 Urine WBC (Auto) Urine Total Protein Digoxin Salicylates Acetaminophen 12/23/19 12/24/19 12/24/19 17:53 00:48 04:20 WBC RBC Hgb Hct MCV MCH MCHC RDW Plt Count Lymph % (Auto) [place] % (Auto) Eos % (Auto) Baso % (Auto) Lymph # [place] # Eos # Baso # Seg Neutrophils % Monocytes % (Manual) Monocytes # (Manual) D-Dimer ABG pH ABG pO2 ABG HCO3 30.4 H ABG O2 Saturation ABG Base Excess 3.9 H ABG Hemoglobin 10.3 L Oxyhemoglobin 94.4 L Sodium Potassium Chloride Carbon Dioxide BUN Creatinine Glucose POC Glucose 180 H 174 H Lactic Acid Calcium Magnesium AST ALT Lactate Dehydrogenase Total Creatine Kinase C-Reactive Protein Total Protein Albumin Free T4 Urine WBC (Auto) Urine Total Protein Digoxin Salicylates Acetaminophen 12/24/19 12/24/19 12/24/19 04:53 04:53 11:50 WBC RBC Hgb 9.7 L Hct 33.2 L MCV MCH 25 L MCHC 29 L RDW 20.1 H Plt Count Lymph % (Auto) [place] % (Auto) Eos % (Auto) Baso % (Auto) Lymph # [place] # Eos # Baso # Seg Neutrophils % Monocytes % (Manual) 15.0 H Monocytes # (Manual) 0.9 H D-Dimer ABG pH ABG pO2 ABG HCO3 ABG O2 Saturation ABG Base Excess ABG Hemoglobin Oxyhemoglobin Sodium 163 H* Potassium 3.2 L Chloride 122.6 H Carbon Dioxide BUN Creatinine Glucose 168 H POC Glucose 190 H Lactic Acid Calcium Magnesium AST ALT Lactate Dehydrogenase Total Creatine Kinase C-Reactive Protein Total Protein Albumin Free T4 Urine WBC (Auto) Urine Total Protein Digoxin Salicylates Acetaminophen 12/24/19 12/24/19 12/24/19 15:00 16:28 21:15 WBC RBC Hgb Hct MCV MCH MCHC RDW Plt Count Lymph % (Auto) [place] % (Auto) Eos % (Auto) Baso % (Auto) Lymph # [place] # Eos # Baso # Seg Neutrophils % Monocytes % (Manual) Monocytes # (Manual) D-Dimer ABG pH ABG pO2 ABG HCO3 ABG O2 Saturation ABG Base Excess ABG Hemoglobin Oxyhemoglobin Sodium 165 H* D 163 H* Potassium Chloride Carbon Dioxide BUN Creatinine Glucose POC Glucose 160 H Lactic Acid Calcium Magnesium AST ALT Lactate Dehydrogenase Total Creatine Kinase C-Reactive Protein Total Protein Albumin Free T4 Urine WBC (Auto) Urine Total Protein Digoxin Salicylates Acetaminophen 12/25/19 12/25/19 12/25/19 00:31 05:38 05:46 WBC RBC Hgb 9.7 L Hct 32.5 L MCV MCH 25 L MCHC 30 L RDW 19.4 H Plt Count Lymph % (Auto) [place] % (Auto) Eos % (Auto) Baso % (Auto) Lymph # [place] # Eos # Baso # Seg Neutrophils % Monocytes % (Manual) Monocytes # (Manual) D-Dimer ABG pH ABG pO2 ABG HCO3 ABG O2 Saturation ABG Base Excess ABG Hemoglobin Oxyhemoglobin Sodium Potassium Chloride Carbon Dioxide BUN Creatinine Glucose POC Glucose 182 H 194 H Lactic Acid Calcium Magnesium AST ALT Lactate Dehydrogenase Total Creatine Kinase C-Reactive Protein Total Protein Albumin Free T4 Urine WBC (Auto) Urine Total Protein Digoxin Salicylates Acetaminophen 12/25/19 12/25/19 12/25/19 05:46 11:35 11:38 WBC RBC Hgb Hct MCV MCH MCHC RDW Plt Count Lymph % (Auto) [place] % (Auto) Eos % (Auto) Baso % (Auto) Lymph # [place] # Eos # Baso # Seg Neutrophils % Monocytes % (Manual) Monocytes # (Manual) D-Dimer ABG pH 7.330 L ABG pO2 65.7 L ABG HCO3 32.6 H ABG O2 Saturation 92.5 L ABG Base Excess 5.3 H ABG Hemoglobin 10.4 L Oxyhemoglobin 90.0 L Sodium 166 H* Potassium 2.9 L* Chloride 124.5 H Carbon Dioxide BUN Creatinine Glucose 190 H POC Glucose 192 H Lactic Acid Calcium Magnesium AST ALT Lactate Dehydrogenase Total Creatine Kinase C-Reactive Protein Total Protein Albumin Free T4 Urine WBC (Auto) Urine Total Protein Digoxin Salicylates Acetaminophen 12/25/19 12/25/19 12/25/19 13:01 16:45 17:20 WBC RBC Hgb Hct MCV MCH MCHC RDW Plt Count Lymph % (Auto) [place] % (Auto) Eos % (Auto) Baso % (Auto) Lymph # [place] # Eos # Baso # Seg Neutrophils % Monocytes % (Manual) Monocytes # (Manual) D-Dimer ABG pH 7.296 L ABG pO2 101.5 H ABG HCO3 33.2 H ABG O2 Saturation ABG Base Excess 5.3 H ABG Hemoglobin 9.6 L Oxyhemoglobin 94.6 L Sodium 174 H* Potassium Chloride Carbon Dioxide BUN Creatinine Glucose POC Glucose Lactic Acid Calcium Magnesium AST ALT Lactate Dehydrogenase Total Creatine Kinase C-Reactive Protein Total Protein Albumin Free T4 Urine WBC (Auto) Urine Total Protein < 4 L Digoxin Salicylates Acetaminophen 12/25/19 12/25/19 12/26/19 17:48 18:50 00:43 WBC RBC Hgb Hct MCV MCH MCHC RDW Plt Count Lymph % (Auto) [place] % (Auto) Eos % (Auto) Baso % (Auto) Lymph # [place] # Eos # Baso # Seg Neutrophils % Monocytes % (Manual) Monocytes # (Manual) D-Dimer ABG pH ABG pO2 ABG HCO3 ABG O2 Saturation ABG Base Excess ABG Hemoglobin Oxyhemoglobin Sodium 166 H* 164 H* Potassium Chloride 127.3 H Carbon Dioxide BUN Creatinine Glucose 220 H POC Glucose 252 H Lactic Acid Calcium Magnesium AST ALT Lactate Dehydrogenase Total Creatine Kinase C-Reactive Protein Total Protein Albumin Free T4 Urine WBC (Auto) Urine Total Protein Digoxin Salicylates Acetaminophen 12/26/19 12/26/19 12/26/19 05:31 08:07 08:07 WBC 4.3 L RBC Hgb 9.6 L Hct 32.1 L MCV MCH 26 L MCHC 30 L RDW 20.5 H Plt Count Lymph % (Auto) [place] % (Auto) Eos % (Auto) Baso % (Auto) Lymph # [place] # Eos # Baso # Seg Neutrophils % Monocytes % (Manual) Monocytes # (Manual) D-Dimer ABG pH ABG pO2 ABG HCO3 ABG O2 Saturation ABG Base Excess ABG Hemoglobin Oxyhemoglobin Sodium 162 H* Potassium Chloride 122.1 H Carbon Dioxide BUN Creatinine Glucose 247 H POC Glucose 187 H Lactic Acid Calcium Magnesium AST ALT Lactate Dehydrogenase Total Creatine Kinase C-Reactive Protein Total Protein Albumin Free T4 Urine WBC (Auto) Urine Total Protein Digoxin Salicylates Acetaminophen 12/26/19 12/26/19 12/26/19 08:07 12:20 16:25 WBC RBC Hgb Hct MCV MCH MCHC RDW Plt Count Lymph % (Auto) [place] % (Auto) Eos % (Auto) Baso % (Auto) Lymph # [place] # Eos # Baso # Seg Neutrophils % Monocytes % (Manual) Monocytes # (Manual) D-Dimer ABG pH 7.290 L ABG pO2 73.2 L ABG HCO3 33.2 H ABG O2 Saturation 94.9 L ABG Base Excess 5.2 H ABG Hemoglobin 10.0 L Oxyhemoglobin 92.5 L Sodium 159 H Potassium Chloride Carbon Dioxide BUN Creatinine Glucose POC Glucose 234 H Lactic Acid Calcium Magnesium AST ALT Lactate Dehydrogenase Total Creatine Kinase C-Reactive Protein Total Protein Albumin Free T4 Urine WBC (Auto) Urine Total Protein Digoxin Salicylates Acetaminophen 12/26/19 12/26/19 12/26/19 17:33 22:35 23:30 WBC RBC Hgb Hct MCV MCH MCHC RDW Plt Count Lymph % (Auto) [place] % (Auto) Eos % (Auto) Baso % (Auto) Lymph # [place] # Eos # Baso # Seg Neutrophils % Monocytes % (Manual) Monocytes # (Manual) D-Dimer ABG pH ABG pO2 ABG HCO3 ABG O2 Saturation ABG Base Excess ABG Hemoglobin Oxyhemoglobin Sodium Potassium Chloride Carbon Dioxide BUN Creatinine Glucose POC Glucose 244 H 208 H 287 H Lactic Acid Calcium Magnesium AST ALT Lactate Dehydrogenase Total Creatine Kinase C-Reactive Protein Total Protein Albumin Free T4 Urine WBC (Auto) Urine Total Protein Digoxin Salicylates Acetaminophen 12/27/19 12/27/19 12/27/19 03:48 03:48 03:48 WBC RBC Hgb 10.1 L Hct 35.4 L MCV MCH 25 L MCHC 29 L RDW 20.1 H Plt Count Lymph % (Auto) [place] % (Auto) Eos % (Auto) Baso % (Auto) Lymph # [place] # Eos # Baso # Seg Neutrophils % Monocytes % (Manual) Monocytes # (Manual) D-Dimer ABG pH ABG pO2 ABG HCO3 ABG O2 Saturation ABG Base Excess ABG Hemoglobin Oxyhemoglobin Sodium 160 H Potassium Chloride 118.8 H Carbon Dioxide 33 H BUN Creatinine Glucose 217 H POC Glucose Lactic Acid Calcium Magnesium 2.70 H AST ALT Lactate Dehydrogenase Total Creatine Kinase C-Reactive Protein Total Protein Albumin Free T4 Urine WBC (Auto) Urine Total Protein Digoxin Salicylates Acetaminophen 12/27/19 12/27/19 12/27/19 05:50 11:58 16:05 WBC RBC Hgb Hct MCV MCH MCHC RDW Plt Count Lymph % (Auto) [place] % (Auto) Eos % (Auto) Baso % (Auto) Lymph # [place] # Eos # Baso # Seg Neutrophils % Monocytes % (Manual) Monocytes # (Manual) D-Dimer ABG pH 7.180 L* ABG pO2 73.6 L ABG HCO3 34.8 H ABG O2 Saturation 92.7 L ABG Base Excess 3.8 H ABG Hemoglobin 12.0 L Oxyhemoglobin 90.2 L Sodium Potassium Chloride Carbon Dioxide BUN Creatinine Glucose POC Glucose 224 H 218 H Lactic Acid Calcium Magnesium AST ALT Lactate Dehydrogenase Total Creatine Kinase C-Reactive Protein Total Protein Albumin Free T4 Urine WBC (Auto) Urine Total Protein Digoxin Salicylates Acetaminophen 12/27/19 12/27/19 12/27/19 18:05 19:50 21:53 WBC RBC Hgb Hct MCV MCH MCHC RDW Plt Count Lymph % (Auto) [place] % (Auto) Eos % (Auto) Baso % (Auto) Lymph # [place] # Eos # Baso # Seg Neutrophils % Monocytes % (Manual) Monocytes # (Manual) D-Dimer ABG pH 7.328 L ABG pO2 49.9 L ABG HCO3 33.3 H ABG O2 Saturation 87.1 L ABG Base Excess 5.7 H ABG Hemoglobin 11.2 L Oxyhemoglobin 84.8 L Sodium Potassium Chloride Carbon Dioxide BUN Creatinine Glucose POC Glucose 214 H 178 H Lactic Acid Calcium Magnesium AST ALT Lactate Dehydrogenase Total Creatine Kinase C-Reactive Protein Total Protein Albumin Free T4 Urine WBC (Auto) Urine Total Protein Digoxin Salicylates Acetaminophen 12/28/19 12/28/19 12/28/19 00:42 04:37 04:37 WBC RBC Hgb 9.8 L Hct 33.5 L MCV MCH 25 L MCHC 29 L RDW 21.1 H Plt Count Lymph % (Auto) [place] % (Auto) Eos % (Auto) Baso % (Auto) Lymph # [place] # Eos # Baso # Seg Neutrophils % Monocytes % (Manual) Monocytes # (Manual) D-Dimer ABG pH ABG pO2 ABG HCO3 ABG O2 Saturation ABG Base Excess ABG Hemoglobin Oxyhemoglobin Sodium 157 H Potassium 3.4 L Chloride 117.5 H Carbon Dioxide BUN Creatinine Glucose 193 H POC Glucose 157 H Lactic Acid Calcium Magnesium AST ALT Lactate Dehydrogenase Total Creatine Kinase C-Reactive Protein Total Protein Albumin Free T4 Urine WBC (Auto) Urine Total Protein Digoxin Salicylates Acetaminophen 12/28/19 12/28/19 12/28/19 04:52 05:19 12:05 WBC RBC Hgb Hct MCV MCH MCHC RDW Plt Count Lymph % (Auto) [place] % (Auto) Eos % (Auto) Baso % (Auto) Lymph # [place] # Eos # Baso # Seg Neutrophils % Monocytes % (Manual) Monocytes # (Manual) D-Dimer ABG pH ABG pO2 51.7 L ABG HCO3 28.7 H ABG O2 Saturation 89.9 L ABG Base Excess 4.1 H ABG Hemoglobin 9.7 L Oxyhemoglobin 87.7 L Sodium Potassium Chloride Carbon Dioxide BUN Creatinine Glucose POC Glucose 202 H 248 H Lactic Acid Calcium Magnesium AST ALT Lactate Dehydrogenase Total Creatine Kinase C-Reactive Protein Total Protein Albumin Free T4 Urine WBC (Auto) Urine Total Protein Digoxin Salicylates Acetaminophen 12/28/19 12/28/19 12/28/19 18:11 21:15 23:22 WBC RBC Hgb Hct MCV MCH MCHC RDW Plt Count Lymph % (Auto) [place] % (Auto) Eos % (Auto) Baso % (Auto) Lymph # [place] # Eos # Baso # Seg Neutrophils % Monocytes % (Manual) Monocytes # (Manual) D-Dimer ABG pH ABG pO2 ABG HCO3 ABG O2 Saturation ABG Base Excess ABG Hemoglobin Oxyhemoglobin Sodium Potassium Chloride Carbon Dioxide BUN Creatinine Glucose POC Glucose 226 H 217 H 227 H Lactic Acid Calcium Magnesium AST ALT Lactate Dehydrogenase Total Creatine Kinase C-Reactive Protein Total Protein Albumin Free T4 Urine WBC (Auto) Urine Total Protein Digoxin Salicylates Acetaminophen 12/29/19 12/29/19 12/29/19 04:09 04:59 04:59 WBC 11.1 H RBC Hgb 9.3 L Hct 31.1 L MCV 81 L MCH 24 L MCHC 30 L RDW 19.9 H Plt Count Lymph % (Auto) [place] % (Auto) Eos % (Auto) Baso % (Auto) Lymph # [place] # Eos # Baso # Seg Neutrophils % Monocytes % (Manual) Monocytes # (Manual) D-Dimer ABG pH 7.473 H ABG pO2 126.1 H ABG HCO3 29.2 H ABG O2 Saturation ABG Base Excess 5.1 H ABG Hemoglobin 8.4 L Oxyhemoglobin Sodium 157 H Potassium 3.2 L Chloride 118.2 H Carbon Dioxide BUN Creatinine 1.7 H Glucose 229 H POC Glucose Lactic Acid Calcium Magnesium AST ALT Lactate Dehydrogenase Total Creatine Kinase C-Reactive Protein Total Protein Albumin Free T4 Urine WBC (Auto) Urine Total Protein Digoxin Salicylates Acetaminophen 12/29/19 12/29/19 12/29/19 05:15 12:13 17:59 WBC RBC Hgb Hct MCV MCH MCHC RDW Plt Count Lymph % (Auto) [place] % (Auto) Eos % (Auto) Baso % (Auto) Lymph # [place] # Eos # Baso # Seg Neutrophils % Monocytes % (Manual) Monocytes # (Manual) D-Dimer ABG pH ABG pO2 ABG HCO3 ABG O2 Saturation ABG Base Excess ABG Hemoglobin Oxyhemoglobin Sodium Potassium Chloride Carbon Dioxide BUN Creatinine Glucose POC Glucose 221 H 392 H 365 H Lactic Acid Calcium Magnesium AST ALT Lactate Dehydrogenase Total Creatine Kinase C-Reactive Protein Total Protein Albumin Free T4 Urine WBC (Auto) Urine Total Protein Digoxin Salicylates Acetaminophen 12/29/19 12/29/19 12/30/19 20:25 23:38 04:45 WBC RBC Hgb Hct MCV MCH MCHC RDW Plt Count Lymph % (Auto) [place] % (Auto) Eos % (Auto) Baso % (Auto) Lymph # [place] # Eos # Baso # Seg Neutrophils % Monocytes % (Manual) Monocytes # (Manual) D-Dimer ABG pH 7.261 L 7.343 L ABG pO2 60.3 L 54.3 L ABG HCO3 32.1 H 30.9 H ABG O2 Saturation 87.6 L 88.3 L ABG Base Excess 3.7 H 4.0 H ABG Hemoglobin 9.7 L 11.6 L Oxyhemoglobin 85.2 L 86.0 L Sodium Potassium Chloride Carbon Dioxide BUN Creatinine Glucose POC Glucose 402 H Lactic Acid Calcium Magnesium AST ALT Lactate Dehydrogenase Total Creatine Kinase C-Reactive Protein Total Protein Albumin Free T4 Urine WBC (Auto) Urine Total Protein Digoxin Salicylates Acetaminophen 12/30/19 12/30/19 12/30/19 05:06 05:06 05:06 WBC 11.7 H RBC Hgb 9.4 L Hct 32.4 L MCV 83 L MCH 24 L MCHC 29 L RDW 20.2 H Plt Count Lymph % (Auto) [place] % (Auto) Eos % (Auto) Baso % (Auto) Lymph # [place] # Eos # Baso # Seg Neutrophils % Monocytes % (Manual) Monocytes # (Manual) D-Dimer ABG pH ABG pO2 ABG HCO3 ABG O2 Saturation ABG Base Excess ABG Hemoglobin Oxyhemoglobin Sodium 159 H Potassium 3.2 L Chloride 120.1 H Carbon Dioxide 31 H BUN Creatinine 1.9 H Glucose 404 H POC Glucose Lactic Acid Calcium Magnesium 2.60 H AST ALT Lactate Dehydrogenase Total Creatine Kinase C-Reactive Protein Total Protein Albumin Free T4 Urine WBC (Auto) Urine Total Protein Digoxin Salicylates Acetaminophen 12/30/19 12/30/19 12/30/19 06:26 12:29 13:44 WBC RBC Hgb Hct MCV MCH MCHC RDW Plt Count Lymph % (Auto) [place] % (Auto) Eos % (Auto) Baso % (Auto) Lymph # [place] # Eos # Baso # Seg Neutrophils % Monocytes % (Manual) Monocytes # (Manual) D-Dimer ABG pH ABG pO2 ABG HCO3 ABG O2 Saturation ABG Base Excess ABG Hemoglobin Oxyhemoglobin Sodium Potassium Chloride Carbon Dioxide BUN Creatinine Glucose POC Glucose 399 H 469 H > 500 H Lactic Acid Calcium Magnesium AST ALT Lactate Dehydrogenase Total Creatine Kinase C-Reactive Protein Total Protein Albumin Free T4 Urine WBC (Auto) Urine Total Protein Digoxin Salicylates Acetaminophen 12/30/19 12/30/19 12/30/19 13:51 16:32 18:05 WBC RBC Hgb Hct MCV MCH MCHC RDW Plt Count Lymph % (Auto) [place] % (Auto) Eos % (Auto) Baso % (Auto) Lymph # [place] # Eos # Baso # Seg Neutrophils % Monocytes % (Manual) Monocytes # (Manual) D-Dimer ABG pH ABG pO2 ABG HCO3 ABG O2 Saturation ABG Base Excess ABG Hemoglobin Oxyhemoglobin Sodium Potassium Chloride Carbon Dioxide BUN Creatinine Glucose POC Glucose > 500 H 445 H 429 H Lactic Acid Calcium Magnesium AST ALT Lactate Dehydrogenase Total Creatine Kinase C-Reactive Protein Total Protein Albumin Free T4 Urine WBC (Auto) Urine Total Protein Digoxin Salicylates Acetaminophen 12/30/19 12/30/19 12/31/19 21:42 Unknown 00:00 WBC RBC Hgb Hct MCV MCH MCHC RDW Plt Count Lymph % (Auto) [place] % (Auto) Eos % (Auto) Baso % (Auto) Lymph # [place] # Eos # Baso # Seg Neutrophils % Monocytes % (Manual) Monocytes # (Manual) D-Dimer ABG pH ABG pO2 ABG HCO3 ABG O2 Saturation ABG Base Excess ABG Hemoglobin Oxyhemoglobin Sodium Potassium Chloride Carbon Dioxide BUN Creatinine Glucose 498 H POC Glucose 371 H 452 H Lactic Acid Calcium Magnesium AST ALT Lactate Dehydrogenase Total Creatine Kinase C-Reactive Protein Total Protein Albumin Free T4 Urine WBC (Auto) Urine Total Protein Digoxin Salicylates Acetaminophen 12/31/19 12/31/19 12/31/19 04:31 05:42 08:01 WBC RBC Hgb Hct MCV MCH MCHC RDW Plt Count Lymph % (Auto) [place] % (Auto) Eos % (Auto) Baso % (Auto) Lymph # [place] # Eos # Baso # Seg Neutrophils % Monocytes % (Manual) Monocytes # (Manual) D-Dimer ABG pH 7.251 L ABG pO2 62.4 L ABG HCO3 31.1 H ABG O2 Saturation 88.7 L ABG Base Excess ABG Hemoglobin 8.7 L Oxyhemoglobin 86.4 L Sodium Potassium Chloride Carbon Dioxide BUN Creatinine Glucose POC Glucose 443 H 443 H Lactic Acid Calcium Magnesium AST ALT Lactate Dehydrogenase Total Creatine Kinase C-Reactive Protein Total Protein Albumin Free T4 Urine WBC (Auto) Urine Total Protein Digoxin Salicylates Acetaminophen 12/31/19 12/31/19 12/31/19 09:08 10:00 11:50 WBC RBC Hgb Hct MCV MCH MCHC RDW Plt Count Lymph % (Auto) [place] % (Auto) Eos % (Auto) Baso % (Auto) Lymph # [place] # Eos # Baso # Seg Neutrophils % Monocytes % (Manual) Monocytes # (Manual) D-Dimer ABG pH 7.325 L ABG pO2 97.2 H ABG HCO3 30.1 H ABG O2 Saturation ABG Base Excess 3.4 H ABG Hemoglobin 8.3 L Oxyhemoglobin 94.7 L Sodium 151 H D Potassium 3.2 L Chloride 113.0 H Carbon Dioxide BUN 23 H Creatinine 1.8 H Glucose 373 H POC Glucose 465 H Lactic Acid Calcium Magnesium AST ALT Lactate Dehydrogenase Total Creatine Kinase C-Reactive Protein Total Protein Albumin Free T4 Urine WBC (Auto) Urine Total Protein Digoxin Salicylates Acetaminophen 12/31/19 12/31/19 12/31/19 12:25 13:33 18:30 WBC RBC Hgb Hct MCV MCH MCHC RDW Plt Count Lymph % (Auto) [place] % (Auto) Eos % (Auto) Baso % (Auto) Lymph # [place] # Eos # Baso # Seg Neutrophils % Monocytes % (Manual) Monocytes # (Manual) D-Dimer ABG pH ABG pO2 ABG HCO3 ABG O2 Saturation ABG Base Excess ABG Hemoglobin Oxyhemoglobin Sodium Potassium Chloride Carbon Dioxide BUN Creatinine Glucose POC Glucose 379 H 311 H 349 H Lactic Acid Calcium Magnesium AST ALT Lactate Dehydrogenase Total Creatine Kinase C-Reactive Protein Total Protein Albumin Free T4 Urine WBC (Auto) Urine Total Protein Digoxin Salicylates Acetaminophen 12/31/19 12/31/19 01/01/20 22:29 23:30 02:58 WBC RBC Hgb Hct MCV MCH MCHC RDW Plt Count Lymph % (Auto) [place] % (Auto) Eos % (Auto) Baso % (Auto) Lymph # [place] # Eos # Baso # Seg Neutrophils % Monocytes % (Manual) Monocytes # (Manual) D-Dimer ABG pH ABG pO2 ABG HCO3 ABG O2 Saturation ABG Base Excess ABG Hemoglobin Oxyhemoglobin Sodium Potassium Chloride Carbon Dioxide BUN Creatinine Glucose POC Glucose 256 H 266 H 248 H Lactic Acid Calcium Magnesium AST ALT Lactate Dehydrogenase Total Creatine Kinase C-Reactive Protein Total Protein Albumin Free T4 Urine WBC (Auto) Urine Total Protein Digoxin Salicylates Acetaminophen 01/01/20 01/01/20 01/01/20 04:19 06:56 10:52 WBC RBC Hgb Hct MCV MCH MCHC RDW Plt Count Lymph % (Auto) [place] % (Auto) Eos % (Auto) Baso % (Auto) Lymph # [place] # Eos # Baso # Seg Neutrophils % Monocytes % (Manual) Monocytes # (Manual) D-Dimer ABG pH ABG pO2 90.7 H ABG HCO3 29.1 H ABG O2 Saturation ABG Base Excess 3.8 H ABG Hemoglobin 8.1 L Oxyhemoglobin 94.5 L Sodium Potassium Chloride Carbon Dioxide BUN Creatinine Glucose POC Glucose 303 H 244 H Lactic Acid Calcium Magnesium AST ALT Lactate Dehydrogenase Total Creatine Kinase C-Reactive Protein Total Protein Albumin Free T4 Urine WBC (Auto) Urine Total Protein Digoxin Salicylates Acetaminophen 01/01/20 01/01/20 01/01/20 13:39 14:49 18:42 WBC RBC Hgb Hct MCV MCH MCHC RDW Plt Count Lymph % (Auto) [place] % (Auto) Eos % (Auto) Baso % (Auto) Lymph # [place] # Eos # Baso # Seg Neutrophils % Monocytes % (Manual) Monocytes # (Manual) D-Dimer ABG pH ABG pO2 ABG HCO3 ABG O2 Saturation ABG Base Excess ABG Hemoglobin Oxyhemoglobin Sodium 147 H Potassium Chloride 107.1 H Carbon Dioxide BUN 28 H Creatinine Glucose 207 H POC Glucose 263 H 188 H Lactic Acid Calcium Magnesium AST ALT Lactate Dehydrogenase Total Creatine Kinase C-Reactive Protein Total Protein Albumin Free T4 Urine WBC (Auto) Urine Total Protein Digoxin Salicylates Acetaminophen 01/02/20 01/02/20 01/02/20 02:22 03:58 05:00 WBC RBC 3.31 L Hgb 8.0 L Hct 26.9 L MCV 81 L MCH 24 L MCHC 30 L RDW 19.4 H Plt Count Lymph % (Auto) [place] % (Auto) 9.4 H Eos % (Auto) 11.2 H Baso % (Auto) Lymph # [place] # Eos # 0.8 H Baso # Seg Neutrophils % Monocytes % (Manual) Monocytes # (Manual) D-Dimer ABG pH ABG pO2 63.0 L ABG HCO3 31.6 H ABG O2 Saturation 91.8 L ABG Base Excess 5.5 H ABG Hemoglobin 8.6 L Oxyhemoglobin 89.6 L Sodium Potassium Chloride Carbon Dioxide BUN Creatinine Glucose POC Glucose 196 H Lactic Acid Calcium Magnesium AST ALT Lactate Dehydrogenase Total Creatine Kinase C-Reactive Protein Total Protein Albumin Free T4 Urine WBC (Auto) Urine Total Protein Digoxin Salicylates Acetaminophen 01/02/20 01/02/20 01/02/20 05:40 10:26 13:57 WBC RBC Hgb Hct MCV MCH MCHC RDW Plt Count Lymph % (Auto) [place] % (Auto) Eos % (Auto) Baso % (Auto) Lymph # [place] # Eos # Baso # Seg Neutrophils % Monocytes % (Manual) Monocytes # (Manual) D-Dimer ABG pH ABG pO2 ABG HCO3 ABG O2 Saturation ABG Base Excess ABG Hemoglobin Oxyhemoglobin Sodium Potassium Chloride Carbon Dioxide BUN Creatinine Glucose POC Glucose 189 H 157 H 178 H Lactic Acid Calcium Magnesium AST ALT Lactate Dehydrogenase Total Creatine Kinase C-Reactive Protein Total Protein Albumin Free T4 Urine WBC (Auto) Urine Total Protein Digoxin Salicylates Acetaminophen 01/02/20 01/03/20 01/03/20 21:27 03:12 05:26 WBC RBC Hgb Hct MCV MCH MCHC RDW Plt Count Lymph % (Auto) [place] % (Auto) Eos % (Auto) Baso % (Auto) Lymph # [place] # Eos # Baso # Seg Neutrophils % Monocytes % (Manual) Monocytes # (Manual) D-Dimer ABG pH 7.473 H ABG pO2 109.6 H ABG HCO3 30.4 H ABG O2 Saturation ABG Base Excess 6.2 H ABG Hemoglobin 9.9 L Oxyhemoglobin Sodium Potassium Chloride Carbon Dioxide BUN Creatinine Glucose POC Glucose 131 H 133 H Lactic Acid Calcium Magnesium AST ALT Lactate Dehydrogenase Total Creatine Kinase C-Reactive Protein Total Protein Albumin Free T4 Urine WBC (Auto) Urine Total Protein Digoxin Salicylates Acetaminophen 01/03/20 01/03/20 01/03/20 05:40 05:40 15:01 WBC RBC 3.45 L Hgb 8.3 L Hct 27.3 L MCV 79 L MCH 24 L MCHC 30 L RDW 19.3 H Plt Count Lymph % (Auto) [place] % (Auto) Eos % (Auto) Baso % (Auto) Lymph # [place] # Eos # Baso # Seg Neutrophils % Monocytes % (Manual) Monocytes # (Manual) D-Dimer ABG pH ABG pO2 ABG HCO3 ABG O2 Saturation ABG Base Excess ABG Hemoglobin Oxyhemoglobin Sodium 151 H Potassium Chloride 111.8 H Carbon Dioxide 31 H BUN 37 H Creatinine 1.8 H Glucose 187 H POC Glucose 164 H Lactic Acid Calcium Magnesium AST ALT Lactate Dehydrogenase Total Creatine Kinase C-Reactive Protein Total Protein Albumin Free T4 Urine WBC (Auto) Urine Total Protein Digoxin Salicylates Acetaminophen 01/03/20 01/03/20 01/04/20 18:15 22:45 02:11 WBC RBC Hgb Hct MCV MCH MCHC RDW Plt Count Lymph % (Auto) [place] % (Auto) Eos % (Auto) Baso % (Auto) Lymph # [place] # Eos # Baso # Seg Neutrophils % Monocytes % (Manual) Monocytes # (Manual) D-Dimer ABG pH ABG pO2 ABG HCO3 ABG O2 Saturation ABG Base Excess ABG Hemoglobin Oxyhemoglobin Sodium Potassium Chloride Carbon Dioxide BUN Creatinine Glucose POC Glucose 184 H 176 H 206 H Lactic Acid Calcium Magnesium AST ALT Lactate Dehydrogenase Total Creatine Kinase C-Reactive Protein Total Protein Albumin Free T4 Urine WBC (Auto) Urine Total Protein Digoxin Salicylates Acetaminophen 01/04/20 01/04/20 01/04/20 03:16 05:15 10:53 WBC RBC Hgb Hct MCV MCH MCHC RDW Plt Count Lymph % (Auto) [place] % (Auto) Eos % (Auto) Baso % (Auto) Lymph # [place] # Eos # Baso # Seg Neutrophils % Monocytes % (Manual) Monocytes # (Manual) D-Dimer ABG pH 7.282 L ABG pO2 73.2 L ABG HCO3 ABG O2 Saturation 94.5 L ABG Base Excess -6.4 L ABG Hemoglobin 10.9 L Oxyhemoglobin 92.1 L Sodium Potassium Chloride Carbon Dioxide BUN Creatinine Glucose POC Glucose 139 H 224 H Lactic Acid Calcium Magnesium AST ALT Lactate Dehydrogenase Total Creatine Kinase C-Reactive Protein Total Protein Albumin Free T4 Urine WBC (Auto) Urine Total Protein Digoxin Salicylates Acetaminophen 01/04/20 01/04/20 01/04/20 15:47 18:05 22:07 WBC RBC Hgb Hct MCV MCH MCHC RDW Plt Count Lymph % (Auto) [place] % (Auto) Eos % (Auto) Baso % (Auto) Lymph # [place] # Eos # Baso # Seg Neutrophils % Monocytes % (Manual) Monocytes # (Manual) D-Dimer ABG pH ABG pO2 ABG HCO3 ABG O2 Saturation ABG Base Excess ABG Hemoglobin Oxyhemoglobin Sodium Potassium Chloride Carbon Dioxide BUN Creatinine Glucose POC Glucose 135 H 117 H 108 H Lactic Acid Calcium Magnesium AST ALT Lactate Dehydrogenase Total Creatine Kinase C-Reactive Protein Total Protein Albumin Free T4 Urine WBC (Auto) Urine Total Protein Digoxin Salicylates Acetaminophen 01/04/20 01/04/20 01/05/20 Unknown Unknown 02:04 WBC RBC 3.46 L Hgb 8.2 L Hct 27.8 L MCV 80 L MCH 24 L MCHC 30 L RDW 19.7 H Plt Count Lymph % (Auto) [place] % (Auto) Eos % (Auto) Baso % (Auto) Lymph # [place] # Eos # Baso # Seg Neutrophils % Monocytes % (Manual) Monocytes # (Manual) D-Dimer ABG pH ABG pO2 ABG HCO3 ABG O2 Saturation ABG Base Excess ABG Hemoglobin Oxyhemoglobin Sodium 150 H Potassium Chloride 110 H Carbon Dioxide 32 H BUN 32 H Creatinine Glucose 309 H POC Glucose 140 H Lactic Acid Calcium Magnesium AST ALT Lactate Dehydrogenase Total Creatine Kinase C-Reactive Protein Total Protein Albumin Free T4 Urine WBC (Auto) Urine Total Protein Digoxin Salicylates Acetaminophen 01/05/20 01/05/20 01/05/20 03:31 03:36 03:36 WBC RBC 3.46 L Hgb 8.4 L Hct 26.9 L MCV 78 L MCH 24 L MCHC 31 L RDW 19.0 H Plt Count Lymph % (Auto) [place] % (Auto) Eos % (Auto) Baso % (Auto) Lymph # [place] # Eos # Baso # Seg Neutrophils % Monocytes % (Manual) Monocytes # (Manual) D-Dimer ABG pH 7.454 H ABG pO2 113.0 H ABG HCO3 30.5 H ABG O2 Saturation ABG Base Excess 6.0 H ABG Hemoglobin 8.5 L Oxyhemoglobin Sodium 150 H Potassium Chloride 110.3 H Carbon Dioxide BUN 30 H Creatinine Glucose 148 H POC Glucose Lactic Acid Calcium Magnesium AST ALT Lactate Dehydrogenase Total Creatine Kinase C-Reactive Protein Total Protein Albumin Free T4 Urine WBC (Auto) Urine Total Protein Digoxin Salicylates Acetaminophen 01/05/20 01/05/20 01/05/20 05:21 09:56 11:45 WBC RBC Hgb Hct MCV MCH MCHC RDW Plt Count Lymph % (Auto) [place] % (Auto) Eos % (Auto) Baso % (Auto) Lymph # [place] # Eos # Baso # Seg Neutrophils % Monocytes % (Manual) Monocytes # (Manual) D-Dimer ABG pH ABG pO2 ABG HCO3 ABG O2 Saturation ABG Base Excess ABG Hemoglobin Oxyhemoglobin Sodium Potassium Chloride Carbon Dioxide BUN Creatinine Glucose POC Glucose 142 H 129 H 174 H Lactic Acid Calcium Magnesium AST ALT Lactate Dehydrogenase Total Creatine Kinase C-Reactive Protein Total Protein Albumin Free T4 Urine WBC (Auto) Urine Total Protein Digoxin Salicylates Acetaminophen 01/05/20 01/05/20 01/05/20 13:30 14:00 17:41 WBC RBC Hgb Hct MCV MCH MCHC RDW Plt Count Lymph % (Auto) [place] % (Auto) Eos % (Auto) Baso % (Auto) Lymph # [place] # Eos # Baso # Seg Neutrophils % Monocytes % (Manual) Monocytes # (Manual) D-Dimer ABG pH ABG pO2 ABG HCO3 ABG O2 Saturation ABG Base Excess ABG Hemoglobin Oxyhemoglobin Sodium Potassium Chloride Carbon Dioxide BUN 26 H Creatinine 1.6 H Glucose 302 H POC Glucose 168 H 136 H Lactic Acid Calcium Magnesium AST ALT Lactate Dehydrogenase Total Creatine Kinase C-Reactive Protein Total Protein Albumin Free T4 Urine WBC (Auto) Urine Total Protein Digoxin Salicylates Acetaminophen 01/05/20 01/05/20 01/06/20 20:38 23:32 03:50 WBC RBC Hgb Hct MCV MCH MCHC RDW Plt Count Lymph % (Auto) [place] % (Auto) Eos % (Auto) Baso % (Auto) Lymph # [place] # Eos # Baso # Seg Neutrophils % Monocytes % (Manual) Monocytes # (Manual) D-Dimer ABG pH ABG pO2 76.2 L ABG HCO3 30.1 H ABG O2 Saturation ABG Base Excess 5.1 H ABG Hemoglobin 9.5 L Oxyhemoglobin 93.8 L Sodium Potassium Chloride Carbon Dioxide BUN Creatinine Glucose POC Glucose 124 H 163 H Lactic Acid Calcium Magnesium AST ALT Lactate Dehydrogenase Total Creatine Kinase C-Reactive Protein Total Protein Albumin Free T4 Urine WBC (Auto) Urine Total Protein Digoxin Salicylates Acetaminophen 01/06/20 01/06/20 01/06/20 04:09 04:58 04:58 WBC RBC Hgb 8.8 L Hct 28.7 L MCV 78 L MCH 24 L MCHC 31 L RDW 18.7 H Plt Count 522 H Lymph % (Auto) [place] % (Auto) Eos % (Auto) Baso % (Auto) Lymph # [place] # Eos # Baso # Seg Neutrophils % Monocytes % (Manual) Monocytes # (Manual) D-Dimer ABG pH ABG pO2 ABG HCO3 ABG O2 Saturation ABG Base Excess ABG Hemoglobin Oxyhemoglobin Sodium 150 H D Potassium Chloride 109.3 H Carbon Dioxide BUN 25 H Creatinine Glucose 55 L POC Glucose 65 L Lactic Acid Calcium Magnesium AST ALT Lactate Dehydrogenase Total Creatine Kinase C-Reactive Protein Total Protein Albumin Free T4 Urine WBC (Auto) Urine Total Protein Digoxin Salicylates Acetaminophen 01/06/20 01/06/20 01/06/20 05:01 14:10 17:49 WBC RBC Hgb Hct MCV MCH MCHC RDW Plt Count Lymph % (Auto) [place] % (Auto) Eos % (Auto) Baso % (Auto) Lymph # [place] # Eos # Baso # Seg Neutrophils % Monocytes % (Manual) Monocytes # (Manual) D-Dimer ABG pH ABG pO2 ABG HCO3 ABG O2 Saturation ABG Base Excess ABG Hemoglobin Oxyhemoglobin Sodium Potassium Chloride Carbon Dioxide BUN Creatinine Glucose POC Glucose 60 L 119 H 131 H Lactic Acid Calcium Magnesium AST ALT Lactate Dehydrogenase Total Creatine Kinase C-Reactive Protein Total Protein Albumin Free T4 Urine WBC (Auto) Urine Total Protein Digoxin Salicylates Acetaminophen 01/06/20 01/07/20 01/07/20 21:08 02:11 05:19 WBC RBC Hgb Hct MCV MCH MCHC RDW Plt Count Lymph % (Auto) [place] % (Auto) Eos % (Auto) Baso % (Auto) Lymph # [place] # Eos # Baso # Seg Neutrophils % Monocytes % (Manual) Monocytes # (Manual) D-Dimer ABG pH ABG pO2 ABG HCO3 ABG O2 Saturation ABG Base Excess ABG Hemoglobin Oxyhemoglobin Sodium Potassium Chloride Carbon Dioxide BUN Creatinine Glucose POC Glucose 136 H 209 H 182 H Lactic Acid Calcium Magnesium AST ALT Lactate Dehydrogenase Total Creatine Kinase C-Reactive Protein Total Protein Albumin Free T4 Urine WBC (Auto) Urine Total Protein Digoxin Salicylates Acetaminophen 01/07/20 01/07/20 01/07/20 11:40 11:52 13:49 WBC RBC Hgb Hct MCV MCH MCHC RDW Plt Count Lymph % (Auto) [place] % (Auto) Eos % (Auto) Baso % (Auto) Lymph # [place] # Eos # Baso # Seg Neutrophils % Monocytes % (Manual) Monocytes # (Manual) D-Dimer ABG pH ABG pO2 ABG HCO3 ABG O2 Saturation ABG Base Excess ABG Hemoglobin Oxyhemoglobin Sodium Potassium Chloride Carbon Dioxide BUN 21 H Creatinine Glucose 190 H POC Glucose 180 H 184 H Lactic Acid Calcium Magnesium AST ALT Lactate Dehydrogenase Total Creatine Kinase C-Reactive Protein Total Protein Albumin Free T4 Urine WBC (Auto) Urine Total Protein Digoxin Salicylates Acetaminophen 01/07/20 01/07/20 01/07/20 17:54 22:19 Unknown WBC RBC Hgb Hct MCV MCH MCHC RDW Plt Count Lymph % (Auto) [place] % (Auto) Eos % (Auto) Baso % (Auto) Lymph # [place] # Eos # Baso # Seg Neutrophils % Monocytes % (Manual) Monocytes # (Manual) D-Dimer ABG pH ABG pO2 ABG HCO3 28.9 H ABG O2 Saturation ABG Base Excess 4.0 H ABG Hemoglobin 11.0 L Oxyhemoglobin 94.2 L Sodium Potassium Chloride Carbon Dioxide BUN Creatinine Glucose POC Glucose 190 H 299 H Lactic Acid Calcium Magnesium AST ALT Lactate Dehydrogenase Total Creatine Kinase C-Reactive Protein Total Protein Albumin Free T4 Urine WBC (Auto) Urine Total Protein Digoxin Salicylates Acetaminophen 01/08/20 01/08/20 01/08/20 02:45 05:26 05:27 WBC RBC Hgb Hct MCV MCH MCHC RDW Plt Count Lymph % (Auto) [place] % (Auto) Eos % (Auto) Baso % (Auto) Lymph # [place] # Eos # Baso # Seg Neutrophils % Monocytes % (Manual) Monocytes # (Manual) D-Dimer ABG pH ABG pO2 67.8 L ABG HCO3 26.5 H ABG O2 Saturation 93.2 L ABG Base Excess ABG Hemoglobin 8.1 L Oxyhemoglobin 90.4 L Sodium Potassium Chloride Carbon Dioxide BUN Creatinine Glucose POC Glucose 245 H 346 H Lactic Acid Calcium Magnesium AST ALT Lactate Dehydrogenase Total Creatine Kinase C-Reactive Protein Total Protein Albumin Free T4 Urine WBC (Auto) Urine Total Protein Digoxin Salicylates Acetaminophen 01/08/20 01/08/20 01/08/20 08:03 08:03 10:33 WBC RBC 3.14 L Hgb 7.6 L Hct 24.3 L MCV 77 L MCH 24 L MCHC 31 L RDW 18.3 H Plt Count 509 H Lymph % (Auto) [place] % (Auto) Eos % (Auto) Baso % (Auto) Lymph # [place] # Eos # Baso # Seg Neutrophils % Monocytes % (Manual) Monocytes # (Manual) D-Dimer ABG pH ABG pO2 ABG HCO3 ABG O2 Saturation ABG Base Excess ABG Hemoglobin Oxyhemoglobin Sodium 132 L D Potassium Chloride 94.7 L Carbon Dioxide BUN 22 H Creatinine Glucose 284 H POC Glucose 275 H Lactic Acid Calcium Magnesium AST ALT Lactate Dehydrogenase Total Creatine Kinase C-Reactive Protein Total Protein Albumin Free T4 Urine WBC (Auto) Urine Total Protein Digoxin Salicylates Acetaminophen 01/08/20 01/08/20 01/08/20 13:34 17:24 21:49 WBC RBC Hgb Hct MCV MCH MCHC RDW Plt Count Lymph % (Auto) [place] % (Auto) Eos % (Auto) Baso % (Auto) Lymph # [place] # Eos # Baso # Seg Neutrophils % Monocytes % (Manual) Monocytes # (Manual) D-Dimer ABG pH ABG pO2 ABG HCO3 ABG O2 Saturation ABG Base Excess ABG Hemoglobin Oxyhemoglobin Sodium Potassium Chloride Carbon Dioxide BUN Creatinine Glucose POC Glucose 273 H 294 H 265 H Lactic Acid Calcium Magnesium AST ALT Lactate Dehydrogenase Total Creatine Kinase C-Reactive Protein Total Protein Albumin Free T4 Urine WBC (Auto) Urine Total Protein Digoxin Salicylates Acetaminophen 01/09/20 01/09/20 01/09/20 00:13 03:45 05:55 WBC RBC Hgb Hct MCV MCH MCHC RDW Plt Count Lymph % (Auto) [place] % (Auto) Eos % (Auto) Baso % (Auto) Lymph # [place] # Eos # Baso # Seg Neutrophils % Monocytes % (Manual) Monocytes # (Manual) D-Dimer ABG pH ABG pO2 ABG HCO3 ABG O2 Saturation ABG Base Excess ABG Hemoglobin Oxyhemoglobin Sodium Potassium Chloride Carbon Dioxide BUN Creatinine Glucose POC Glucose 251 H 346 H 300 H Lactic Acid Calcium Magnesium AST ALT Lactate Dehydrogenase Total Creatine Kinase C-Reactive Protein Total Protein Albumin Free T4 Urine WBC (Auto) Urine Total Protein Digoxin Salicylates Acetaminophen 01/09/20 01/09/20 01/09/20 08:15 09:31 12:04 WBC RBC Hgb Hct MCV MCH MCHC RDW Plt Count Lymph % (Auto) [place] % (Auto) Eos % (Auto) Baso % (Auto) Lymph # [place] # Eos # Baso # Seg Neutrophils % Monocytes % (Manual) Monocytes # (Manual) D-Dimer ABG pH ABG pO2 ABG HCO3 ABG O2 Saturation ABG Base Excess ABG Hemoglobin Oxyhemoglobin Sodium 134 L Potassium Chloride 97.6 L Carbon Dioxide BUN 25 H Creatinine Glucose 240 H POC Glucose 191 H 230 H Lactic Acid Calcium Magnesium AST ALT Lactate Dehydrogenase Total Creatine Kinase C-Reactive Protein Total Protein Albumin Free T4 Urine WBC (Auto) Urine Total Protein Digoxin Salicylates Acetaminophen 01/09/20 01/09/20 01/09/20 13:46 17:31 22:28 WBC RBC Hgb Hct MCV MCH MCHC RDW Plt Count Lymph % (Auto) [place] % (Auto) Eos % (Auto) Baso % (Auto) Lymph # [place] # Eos # Baso # Seg Neutrophils % Monocytes % (Manual) Monocytes # (Manual) D-Dimer ABG pH ABG pO2 ABG HCO3 ABG O2 Saturation ABG Base Excess ABG Hemoglobin Oxyhemoglobin Sodium Potassium Chloride Carbon Dioxide BUN Creatinine Glucose POC Glucose 211 H 260 H 223 H Lactic Acid Calcium Magnesium AST ALT Lactate Dehydrogenase Total Creatine Kinase C-Reactive Protein Total Protein Albumin Free T4 Urine WBC (Auto) Urine Total Protein Digoxin Salicylates Acetaminophen 01/10/20 01/10/20 01/10/20 02:16 04:20 05:55 WBC RBC Hgb Hct MCV MCH MCHC RDW Plt Count Lymph % (Auto) [place] % (Auto) Eos % (Auto) Baso % (Auto) Lymph # [place] # Eos # Baso # Seg Neutrophils % Monocytes % (Manual) Monocytes # (Manual) D-Dimer ABG pH ABG pO2 95.3 H ABG HCO3 27.8 H ABG O2 Saturation ABG Base Excess ABG Hemoglobin 8.3 L Oxyhemoglobin Sodium Potassium Chloride Carbon Dioxide BUN Creatinine Glucose POC Glucose 219 H 245 H Lactic Acid Calcium Magnesium AST ALT Lactate Dehydrogenase Total Creatine Kinase C-Reactive Protein Total Protein Albumin Free T4 Urine WBC (Auto) Urine Total Protein Digoxin Salicylates Acetaminophen 01/10/20 01/10/20 01/10/20 10:38 15:08 15:45 WBC RBC Hgb Hct MCV MCH MCHC RDW Plt Count Lymph % (Auto) [place] % (Auto) Eos % (Auto) Baso % (Auto) Lymph # [place] # Eos # Baso # Seg Neutrophils % Monocytes % (Manual) Monocytes # (Manual) D-Dimer ABG pH ABG pO2 ABG HCO3 ABG O2 Saturation ABG Base Excess ABG Hemoglobin Oxyhemoglobin Sodium Potassium Chloride Carbon Dioxide BUN Creatinine Glucose POC Glucose 268 H 246 H 238 H Lactic Acid Calcium Magnesium AST ALT Lactate Dehydrogenase Total Creatine Kinase C-Reactive Protein Total Protein Albumin Free T4 Urine WBC (Auto) Urine Total Protein Digoxin Salicylates Acetaminophen 01/10/20 01/10/20 01/10/20 18:00 21:09 22:48 WBC RBC Hgb Hct MCV MCH MCHC RDW Plt Count Lymph % (Auto) [place] % (Auto) Eos % (Auto) Baso % (Auto) Lymph # [place] # Eos # Baso # Seg Neutrophils % Monocytes % (Manual) Monocytes # (Manual) D-Dimer ABG pH ABG pO2 ABG HCO3 ABG O2 Saturation ABG Base Excess ABG Hemoglobin Oxyhemoglobin Sodium Potassium Chloride Carbon Dioxide BUN Creatinine Glucose POC Glucose 187 H 176 H 189 H Lactic Acid Calcium Magnesium AST ALT Lactate Dehydrogenase Total Creatine Kinase C-Reactive Protein Total Protein Albumin Free T4 Urine WBC (Auto) Urine Total Protein Digoxin Salicylates Acetaminophen 01/11/20 01/11/20 01/11/20 03:07 05:45 05:45 WBC RBC 3.15 L Hgb 7.7 L Hct 24.9 L MCV 79 L MCH 24 L MCHC 31 L RDW 18.7 H Plt Count 667 H Lymph % (Auto) [place] % (Auto) Eos % (Auto) Baso % (Auto) Lymph # [place] # Eos # Baso # Seg Neutrophils % Monocytes % (Manual) Monocytes # (Manual) D-Dimer ABG pH ABG pO2 ABG HCO3 ABG O2 Saturation ABG Base Excess ABG Hemoglobin Oxyhemoglobin Sodium 148 H D Potassium 5.1 H Chloride 111.9 H Carbon Dioxide BUN 26 H Creatinine Glucose 236 H POC Glucose 253 H Lactic Acid Calcium Magnesium AST 67 H ALT Lactate Dehydrogenase Total Creatine Kinase C-Reactive Protein Total Protein 5.9 L Albumin 2.8 L Free T4 Urine WBC (Auto) Urine Total Protein Digoxin Salicylates Acetaminophen 01/11/20 01/11/20 01/11/20 06:10 12:59 14:22 WBC RBC Hgb Hct MCV MCH MCHC RDW Plt Count Lymph % (Auto) [place] % (Auto) Eos % (Auto) Baso % (Auto) Lymph # [place] # Eos # Baso # Seg Neutrophils % Monocytes % (Manual) Monocytes # (Manual) D-Dimer ABG pH ABG pO2 ABG HCO3 ABG O2 Saturation ABG Base Excess ABG Hemoglobin Oxyhemoglobin Sodium Potassium Chloride Carbon Dioxide BUN Creatinine Glucose POC Glucose 261 H 234 H 220 H Lactic Acid Calcium Magnesium AST ALT Lactate Dehydrogenase Total Creatine Kinase C-Reactive Protein Total Protein Albumin Free T4 Urine WBC (Auto) Urine Total Protein Digoxin Salicylates Acetaminophen 01/11/20 01/11/20 01/12/20 17:18 21:20 00:45 WBC RBC Hgb Hct MCV MCH MCHC RDW Plt Count Lymph % (Auto) [place] % (Auto) Eos % (Auto) Baso % (Auto) Lymph # [place] # Eos # Baso # Seg Neutrophils % Monocytes % (Manual) Monocytes # (Manual) D-Dimer ABG pH ABG pO2 ABG HCO3 ABG O2 Saturation ABG Base Excess ABG Hemoglobin Oxyhemoglobin Sodium Potassium Chloride Carbon Dioxide BUN Creatinine Glucose POC Glucose 264 H 299 H 289 H Lactic Acid Calcium Magnesium AST ALT Lactate Dehydrogenase Total Creatine Kinase C-Reactive Protein Total Protein Albumin Free T4 Urine WBC (Auto) Urine Total Protein Digoxin Salicylates Acetaminophen 01/12/20 01/12/20 01/12/20 04:35 06:10 11:29 WBC RBC Hgb Hct MCV MCH MCHC RDW Plt Count Lymph % (Auto) [place] % (Auto) Eos % (Auto) Baso % (Auto) Lymph # [place] # Eos # Baso # Seg Neutrophils % Monocytes % (Manual) Monocytes # (Manual) D-Dimer ABG pH ABG pO2 ABG HCO3 ABG O2 Saturation ABG Base Excess ABG Hemoglobin Oxyhemoglobin Sodium Potassium Chloride Carbon Dioxide BUN Creatinine Glucose POC Glucose 187 H 194 H 213 H Lactic Acid Calcium Magnesium AST ALT Lactate Dehydrogenase Total Creatine Kinase C-Reactive Protein Total Protein Albumin Free T4 Urine WBC (Auto) Urine Total Protein Digoxin Salicylates Acetaminophen 01/12/20 01/12/20 01/12/20 14:40 18:50 21:34 WBC RBC Hgb Hct MCV MCH MCHC RDW Plt Count Lymph % (Auto) [place] % (Auto) Eos % (Auto) Baso % (Auto) Lymph # [place] # Eos # Baso # Seg Neutrophils % Monocytes % (Manual) Monocytes # (Manual) D-Dimer ABG pH ABG pO2 ABG HCO3 ABG O2 Saturation ABG Base Excess ABG Hemoglobin Oxyhemoglobin Sodium Potassium Chloride Carbon Dioxide BUN Creatinine Glucose POC Glucose 288 H 292 H 147 H Lactic Acid Calcium Magnesium AST ALT Lactate Dehydrogenase Total Creatine Kinase C-Reactive Protein Total Protein Albumin Free T4 Urine WBC (Auto) Urine Total Protein Digoxin Salicylates Acetaminophen 01/12/20 01/13/20 01/13/20 23:16 04:00 05:27 WBC RBC Hgb Hct MCV MCH MCHC RDW Plt Count Lymph % (Auto) [place] % (Auto) Eos % (Auto) Baso % (Auto) Lymph # [place] # Eos # Baso # Seg Neutrophils % Monocytes % (Manual) Monocytes # (Manual) D-Dimer ABG pH ABG pO2 ABG HCO3 ABG O2 Saturation ABG Base Excess ABG Hemoglobin Oxyhemoglobin Sodium 149 H Potassium Chloride 112.4 H Carbon Dioxide 32 H BUN 28 H Creatinine Glucose 174 H POC Glucose 122 H 143 H Lactic Acid Calcium Magnesium AST ALT Lactate Dehydrogenase Total Creatine Kinase C-Reactive Protein Total Protein Albumin Free T4 Urine WBC (Auto) Urine Total Protein Digoxin Salicylates Acetaminophen 01/13/20 01/13/20 01/13/20 10:24 13:34 15:10 WBC RBC Hgb Hct MCV MCH MCHC RDW Plt Count Lymph % (Auto) [place] % (Auto) Eos % (Auto) Baso % (Auto) Lymph # [place] # Eos # Baso # Seg Neutrophils % Monocytes % (Manual) Monocytes # (Manual) D-Dimer ABG pH 7.223 L ABG pO2 ABG HCO3 33.1 H ABG O2 Saturation 94.7 L ABG Base Excess 4.2 H ABG Hemoglobin 8.5 L Oxyhemoglobin 92.1 L Sodium Potassium Chloride Carbon Dioxide BUN Creatinine Glucose POC Glucose 172 H 151 H Lactic Acid Calcium Magnesium AST ALT Lactate Dehydrogenase Total Creatine Kinase C-Reactive Protein Total Protein Albumin Free T4 Urine WBC (Auto) Urine Total Protein Digoxin Salicylates Acetaminophen 01/13/20 01/13/20 01/13/20 17:59 20:37 22:17 WBC RBC Hgb Hct MCV MCH MCHC RDW Plt Count Lymph % (Auto) [place] % (Auto) Eos % (Auto) Baso % (Auto) Lymph # [place] # Eos # Baso # Seg Neutrophils % Monocytes % (Manual) Monocytes # (Manual) D-Dimer ABG pH ABG pO2 ABG HCO3 ABG O2 Saturation ABG Base Excess ABG Hemoglobin Oxyhemoglobin Sodium Potassium Chloride Carbon Dioxide BUN Creatinine Glucose POC Glucose 114 H 152 H Lactic Acid Calcium Magnesium AST ALT Lactate Dehydrogenase Total Creatine Kinase C-Reactive Protein Total Protein Albumin Free T4 0.63 L Urine WBC (Auto) Urine Total Protein Digoxin Salicylates Acetaminophen 01/13/20 01/14/20 01/14/20 Unknown 02:10 05:20 WBC RBC 3.39 L Hgb 8.1 L Hct 28.4 L MCV MCH 24 L MCHC 29 L RDW 19.9 H Plt Count 713 H Lymph % (Auto) [place] % (Auto) 12.7 H Eos % (Auto) Baso % (Auto) 1.9 H Lymph # [place] # 1.3 H Eos # Baso # 0.2 H Seg Neutrophils % Monocytes % (Manual) Monocytes # (Manual) D-Dimer ABG pH ABG pO2 ABG HCO3 ABG O2 Saturation ABG Base Excess ABG Hemoglobin Oxyhemoglobin Sodium Potassium Chloride Carbon Dioxide BUN Creatinine Glucose POC Glucose 151 H 157 H Lactic Acid Calcium Magnesium AST ALT Lactate Dehydrogenase Total Creatine Kinase C-Reactive Protein Total Protein Albumin Free T4 Urine WBC (Auto) Urine Total Protein Digoxin Salicylates Acetaminophen 01/14/20 01/14/20 01/14/20 11:49 14:56 18:03 WBC RBC Hgb Hct MCV MCH MCHC RDW Plt Count Lymph % (Auto) [place] % (Auto) Eos % (Auto) Baso % (Auto) Lymph # [place] # Eos # Baso # Seg Neutrophils % Monocytes % (Manual) Monocytes # (Manual) D-Dimer ABG pH ABG pO2 ABG HCO3 ABG O2 Saturation ABG Base Excess ABG Hemoglobin Oxyhemoglobin Sodium Potassium Chloride Carbon Dioxide BUN Creatinine Glucose POC Glucose 139 H 112 H 134 H Lactic Acid Calcium Magnesium AST ALT Lactate Dehydrogenase Total Creatine Kinase C-Reactive Protein Total Protein Albumin Free T4 Urine WBC (Auto) Urine Total Protein Digoxin Salicylates Acetaminophen 01/14/20 01/15/20 01/15/20 22:03 02:21 05:28 WBC RBC Hgb Hct MCV MCH MCHC RDW Plt Count Lymph % (Auto) [place] % (Auto) Eos % (Auto) Baso % (Auto) Lymph # [place] # Eos # Baso # Seg Neutrophils % Monocytes % (Manual) Monocytes # (Manual) D-Dimer ABG pH ABG pO2 ABG HCO3 ABG O2 Saturation ABG Base Excess ABG Hemoglobin Oxyhemoglobin Sodium Potassium Chloride Carbon Dioxide BUN Creatinine Glucose POC Glucose 173 H 129 H 127 H Lactic Acid Calcium Magnesium AST ALT Lactate Dehydrogenase Total Creatine Kinase C-Reactive Protein Total Protein Albumin Free T4 Urine WBC (Auto) Urine Total Protein Digoxin Salicylates Acetaminophen 01/15/20 01/15/20 01/15/20 10:43 16:14 18:25 WBC RBC Hgb Hct MCV MCH MCHC RDW Plt Count Lymph % (Auto) [place] % (Auto) Eos % (Auto) Baso % (Auto) Lymph # [place] # Eos # Baso # Seg Neutrophils % Monocytes % (Manual) Monocytes # (Manual) D-Dimer ABG pH ABG pO2 ABG HCO3 ABG O2 Saturation ABG Base Excess ABG Hemoglobin Oxyhemoglobin Sodium Potassium Chloride Carbon Dioxide BUN Creatinine Glucose POC Glucose 150 H 133 H 166 H Lactic Acid Calcium Magnesium AST ALT Lactate Dehydrogenase Total Creatine Kinase C-Reactive Protein Total Protein Albumin Free T4 Urine WBC (Auto) Urine Total Protein Digoxin Salicylates Acetaminophen 01/15/20 01/16/20 01/16/20 23:03 02:11 06:00 WBC RBC 3.19 L Hgb 7.9 L Hct 26.2 L MCV 82 L MCH 25 L MCHC 30 L RDW 20.1 H Plt Count 466 H Lymph % (Auto) 12.9 L [place] % (Auto) 11.2 H Eos % (Auto) 11.0 H Baso % (Auto) Lymph # 1.1 L [place] # 0.9 H Eos # 0.9 H Baso # Seg Neutrophils % Monocytes % (Manual) Monocytes # (Manual) D-Dimer ABG pH ABG pO2 ABG HCO3 ABG O2 Saturation ABG Base Excess ABG Hemoglobin Oxyhemoglobin Sodium Potassium Chloride Carbon Dioxide BUN Creatinine Glucose POC Glucose 143 H 136 H Lactic Acid Calcium Magnesium AST ALT Lactate Dehydrogenase Total Creatine Kinase C-Reactive Protein Total Protein Albumin Free T4 Urine WBC (Auto) Urine Total Protein Digoxin Salicylates Acetaminophen 01/16/20 01/16/20 01/16/20 06:00 06:10 11:52 WBC RBC Hgb Hct MCV MCH MCHC RDW Plt Count Lymph % (Auto) [place] % (Auto) Eos % (Auto) Baso % (Auto) Lymph # [place] # Eos # Baso # Seg Neutrophils % Monocytes % (Manual) Monocytes # (Manual) D-Dimer ABG pH ABG pO2 ABG HCO3 ABG O2 Saturation ABG Base Excess ABG Hemoglobin Oxyhemoglobin Sodium 152 H Potassium Chloride 110.2 H Carbon Dioxide 36 H BUN 23 H Creatinine 0.7 L Glucose 161 H POC Glucose 192 H 184 H Lactic Acid Calcium Magnesium AST ALT Lactate Dehydrogenase Total Creatine Kinase C-Reactive Protein Total Protein Albumin Free T4 Urine WBC (Auto) Urine Total Protein Digoxin Salicylates Acetaminophen 01/16/20 01/16/20 01/16/20 15:15 17:12 22:12 WBC RBC Hgb Hct MCV MCH MCHC RDW Plt Count Lymph % (Auto) [place] % (Auto) Eos % (Auto) Baso % (Auto) Lymph # [place] # Eos # Baso # Seg Neutrophils % Monocytes % (Manual) Monocytes # (Manual) D-Dimer ABG pH ABG pO2 ABG HCO3 ABG O2 Saturation ABG Base Excess ABG Hemoglobin Oxyhemoglobin Sodium Potassium Chloride Carbon Dioxide BUN Creatinine Glucose POC Glucose 224 H 183 H 106 H Lactic Acid Calcium Magnesium AST ALT Lactate Dehydrogenase Total Creatine Kinase C-Reactive Protein Total Protein Albumin Free T4 Urine WBC (Auto) Urine Total Protein Digoxin Salicylates Acetaminophen 01/17/20 01/17/20 01/17/20 02:13 06:10 06:20 WBC RBC 3.50 L Hgb 8.6 L Hct 29.0 L MCV 83 L MCH 25 L MCHC 30 L RDW 21.1 H Plt Count 517 H Lymph % (Auto) [place] % (Auto) 9.7 H Eos % (Auto) 11.9 H Baso % (Auto) Lymph # [place] # Eos # 1.0 H Baso # Seg Neutrophils % Monocytes % (Manual) Monocytes # (Manual) D-Dimer ABG pH ABG pO2 ABG HCO3 ABG O2 Saturation ABG Base Excess ABG Hemoglobin Oxyhemoglobin Sodium Potassium Chloride Carbon Dioxide BUN Creatinine Glucose POC Glucose 164 H 178 H Lactic Acid Calcium Magnesium AST ALT Lactate Dehydrogenase Total Creatine Kinase C-Reactive Protein Total Protein Albumin Free T4 Urine WBC (Auto) Urine Total Protein Digoxin Salicylates Acetaminophen 01/17/20 06:20 WBC RBC Hgb Hct MCV MCH MCHC RDW Plt Count Lymph % (Auto) [place] % (Auto) Eos % (Auto) Baso % (Auto) Lymph # [place] # Eos # Baso # Seg Neutrophils % Monocytes % (Manual) Monocytes # (Manual) D-Dimer ABG pH ABG pO2 ABG HCO3 ABG O2 Saturation ABG Base Excess ABG Hemoglobin Oxyhemoglobin Sodium 148 H Potassium Chloride Carbon Dioxide 34 H BUN 21 H Creatinine 0.6 L Glucose 151 H POC Glucose Lactic Acid Calcium Magnesium AST ALT Lactate Dehydrogenase Total Creatine Kinase C-Reactive Protein Total Protein Albumin Free T4 Urine WBC (Auto) Urine Total Protein Digoxin Salicylates Acetaminophen Allied health notes reviewed: nursing
[2020-01-17] MEDS: FOLIC ACID 1 MG TAB PO SCH (10:46)
[2020-01-17] MEDS: FAMOTIDINE 20 MG TAB PO SCH ×2 (10:46→22:21)
[2020-01-17] MEDS: DOCUSATE SODIUM 100 MG/10 ML ORAL LIQD PO SCH ×2 (10:47→22:02)
[2020-01-17] MEDS: ASPIRIN 81 MG TAB CHEW PO SCH (10:47)
[2020-01-17] MEDS: INSULIN GLARGINE 100 UNITS/ML SUB-Q SCH ×2 (10:49→21:50)
[2020-01-17] MEDS: fentaNYL DRIP Premix 2,000 MCG/100 ML BAG IV SCH ×3 (10:53→22:21)
--- NOTE | 2020-01-17 12:03 | Progress Note ---
Assessment and Plan Assessment and plan: /Septic Shock /Sinus bradycardia /HypERnatremia / Acute hypoxic respiratory failure Likely from bilateral pneumonia and diastolic heart failure Patient intubated, placed on ventilatory support. critical care team consulted in ED. Patient is extubated, continue nebulizer breathing treatment and as needed biPAP We will also do a swallow eval / Sepsis with shock cont IV antibiotic therapy, IV fluid resuscitation therapy, monitor urine output every shift, maintain mean arterial blood pressure greater than or equal to 65, s/p IV pressor support. / Suspected 2019-nCoV infection -ruled out with 2 negative test / Diastolic CHF Preserved EF based on prior echocardiogram Monitor weight strict I's/O, daily weight, monitor urine output every shift, submental oxygen, blood pressure control. /JAGDEEP, due to vasomotor nephropathy, present on admission -Creatinine improving, -Likely due to severe sepsis and hypotension /hypernatremia, -due to dehydration and sepsis -change fluid to D5W - monitor BMP /Hypokalemia, replete / Diabetes type II Initiate tube feeding diet Sliding scale insulin, Accu-Chek, hypoglycemia protocol. / Hypothyroidism Synthroid therapy, supportive care. / Bilateral pneumonia Pneumonia protocol: IV antibiotic therapy with rocephin for total 7 days, pulse oximetry, /Cervical lymphadenopathy -Reactive versus infectious process versus malignancy -Need repeat scanning and further staging when medically more stable -Pulmonology and ID following /Ileus: Hold tube feeds / HTN (hypertension) -hold BP meds as patient is hypotensive Monitor blood pressure every shift, continue medical management. /History of obstructive sleep apnea -Patient currently on mechanical ventilation /Acute metabolic encephalopathy Secondary to hyponatremia. /Urinary retention, suspected in the ER -Patient having good urine output now, will hold any CT scan -Continue IV fluid / DVT prophylaxis SCD to bilateral lower extremities while in bed, prophylactic heparin 12/19/19: Negative for COVID-19, continue pressor and wean off as tolerated, continue IV antibiotic and follow cultures. 12/19: Weaned off from pressor, sodium 156>157>153 today, creatinine 1.4>1.2>1.0. Continue IV fluid. Wean off from vent as tolerated. Follow ID recommendation 12/20: Extubated today, continue to monitor in the ICU overnight if clinically stable with transfer out to [facility]/telemetry tomorrow a.m.. Sodium 149 today, continue IV fluid and monitor BMP. Swallow eval, PT OT eval. 2nd text for covid is negative 12/21: transfer to [facility], start on gentle hydration. mechanical soft diet 12/22: placed back on bipap, Na 163 - start on D5W, monitor bmp 12/23: spoke to sister, updated [id number], also discussed Pulmonary, will likely need LTAC. Obtain Nephrology due to persistent Hypernatremia. Will start on free water and continue to monitor. Remains of restriants for safety due to intermittent confusion. 12/24: Still with intermittent encephalopathy. Requiring restraints. Hyperna tremia still persist continue hypotonic solution. Nephrology consulted. Free water started this morning will increase dose. Replace potassium as hypokalemia still persist 12/26/19: Clinically improving, BIPAP now PRN AND HS, Na improving, continue renal follow up. I have called [facility] in case they would like to transfer the patient tested previously requested. 12/26: Hypernatermia still persist, had pulled out NGT yesterday, Continue free water, Continue Bipap, [facility] states he is not yet stable for transfer. Although from our critical care team this patient has been cleared for to be able to transfer. 12/27: Patient reintubated due to hypoxia. Continue current management as outlined by mailroom supervisor. Sodium is improving. Continue current management monitor ABG and intermittent chest x-ray. [facility] group updated. Patient sister also updated. 12/28: Sepsis persist. Antibiotics adjusted.-start linezolid 600 mg IV q 12 hour. Will adjust insulin for better management of blood glucose. 12/29: Shock still persist Levophed adjusted upward. [place] advised patient not safe for travel at this time. Continue ventilatory support continue full support antibiotics adjusted by ID. Follow cultures 12/30: Still on the vent and pressors , Isolation secondary MRSA In sputum. 12/31: Continue current management, will need intermittent chest xray, adjust insulin For better blood glucose control. Check labs in am 01/01: KUB reviewed shows distended bowel with no no specific obstruction noted. We will hold tube feeds at this time place NG tube to low intermittent suction. Repeat chest x-ray in a.m. Hyponatremia is better kidney function appears to be improving continue to monitor. 01/02: Continue feeding tube to low intermittent suction over 500 residual came out in the last 16+ hours. Repeat blood culture per ID. Continue antibiotics. We will obtain the CT abdomen and pelvis without contrast as renal function is mildly increased today. Prognosis is guarded repeat imaging concerning for colon distention. Will defer to critical care if the fecal management system should be placed. 01/03: CT A/P and chest. IMPRESSION: 1. Predominantly dependent bilateral consolidative and groundglass changes throughout both lungs have worsened since the prior. There is a new small left pleural effusion as well. These findings could be seen in the setting of pulmonary edema with associated superimposed infectious process. There is no cardiomegaly. 2. Left cervical/supraclavicular adenopathy appears slightly increased. This is nonspecific. However, there are shoddy nodes throughout the retroperitoneum and within the pelvis, and the spleen is mildly enlarged. Taken together, these findings are concerning for lymphoproliferative process such as lymphoma. - Ultrasound guided Biopsy, also send peripheral smear. US guided biopsy ordered - add a second pressors 01/04: Awaiting biopsy, continue supportive care, Sodium stable and improving. Patient undergoing bronchoscopy today. 01/05: Continue supportive care, monitor sodium level, wean pressors as tolerated, Radiology unable to perform biopsy of Lymphnode while patient is on the vent per Radiology team. [facility] updated of clinical status 01/06: Remains on pressors. Continues with nonoliguric kidney injury. We will give a bolus of fluid as patient is still dry. Hypoglycemia is improving will decrease to D5 from D10 at the same rate. Continue to monitor await cultures and cytology from bronchoscopy. Likely will need trach and PEG. 01/07: Discontinue D5. Patient did receive a bolus of fluid yesterday. Bowel movement noted. Monitor blood sugar close, continue to wean pressors, folllow result from bronchoscopy. start considering Trach and PEG 01/08: Noted hypotensive again this morning requiring reinitiation of pressors. Also was bradycardic received atropine. Keep atropine at bedside cardiology evaluated continue pulmonary supportive care while on ventilator. Renal function is improving. Will give additional bolus of fluid. 01/09: Consult placed to surgery for trach and PEG as patient has failed multiple weaning trials.. Still awaiting biopsy for the adenopathy noted. Again radiology would want the patient off the vent prior to doing biopsy. 01/11/2020. Patient still requiring mechanical ventilation with AC mode rate 14, tidal volume 450, FiO2 45% and PEEP of 8. Patient requiring fentanyl for sedation, wean as tolerated. Patient currently on pressors of dopamine and vasopressin. And currently on stress dose hydrocortisone 100 mg IV every 8 hours. Continue atropine at the bedside for emergent treatment of bradycardia. Cardiology to decide on possible device therapies. 01/12/2020. Patient still requiring mechanical ventilation with AC mode rate of 14, tidal volume 450, FiO2 50% and PEEP of 8. Continue to wean pressors to maintain MEP greater than 65. Atropine at the bedside for emergent treatment of bradycardia. Continue stress dose hydrocortisone. 01/13/2020. Patient still requiring mechanical ventilation on PSV mode FiO2 50% PEEP 8 and pressure support 15. Continue CPAP trials as tolerated. Continue to wean pressors to maintain MAP greater than 65. Atropine as needed for bradycardia. Avoid AV estella blocking agents. 01/14/2020. Patient currently on AC mode ventilation with rate of 14, tidal volume 450, FiO2 35% and PEEP of 8. Continue CPAP trials per protocols. Continue dopamine/atropine as needed for bradycardia. Consider pacemaker per cardiology. Continue free water every 4 hours for hypernatremia. Continue to monitor off antibiotics. Surgery to perform tracheostomy and PEG placement. 01/15/2020. Patient currently with AC mode ventilation rate 14, tidal volume 450, PEEP of 8 and FiO2 40%. Continue CPAP trials per protocols. Continue dopamine/atropine as needed for bradycardia. Consider pacemaker per cardiology. 01/16/2020. Patient currently with AC mode ventilation rate 14, tidal volume 450, PEEP of 8 and FiO2 40%. Continue CPAP trials per protocols. Continue dopamine/atropine as needed for bradycardia. Consider pacemaker per cardiology. 01/17/2020. The vent settings remain the same and stable. Continue CPAP trials per protocols. Continue dopamine/atropine as needed for bradycardia. Consider pacemaker per cardiology. Patient is to undergo ultrasound biopsy of lymph nodes. Patient is scheduled for tracheostomy and PEG placement in a.m. The high probability of a clinically significant, sudden or life threatening deterioration of the [renal, respiratory and cardiac] system(s) required my full and direct attention, intervention and personal management. The aggregate critical care time was [32] minutes. This time is in addition to time spent performing reported procedures but includes the following: [x] Data Review and interpretation [x] Patient assessment and monitoring of vital signs [x] Documentation [x] Medication orders and management History Interval history: No new issues overnight. Hospitalist Physical - Constitutional Vitals: Temp Pulse Resp BP Pulse Ox 97.5 F L 45 L 15 149/79 97 01/17/20 12:00 01/17/20 11:10 01/17/20 07:20 01/17/20 11:10 01/17/20 11:10 General appearance: Present: severe distress - EENT Eyes: Present: PERRL, EOM intact ENT: hearing intact, clear oral mucosa, dentition normal - Neck Neck: Present: supple, normal ROM - Respiratory Respiratory effort: normal Respiratory: bilateral: CTA - Cardiovascular Rhythm: regular Heart Sounds: Present: S1 & S2. Absent: gallop, rub - Extremities Extremities: no ischemia, No edema, Full ROM - Abdominal General gastrointestinal: soft, non-tender, non-distended, normal bowel sounds - Integumentary Integumentary: Present: clear, warm, dry - Neurologic Neurologic: CNII-XII intact, moves all extremities HEART Score - HEART Score Troponin: Troponin T 0.011 ng/mL (0.00-0.029) 12/18/19 14:45 Results - Labs CBC & Chem 7: 01/17/20 06:20 01/17/20 06:20 Labs: Laboratory Last Values WBC 8.5 K/mm3 (4.5-11.0) 01/17/20 06:20 RBC 3.50 M/mm3 (3.65-5.03) L 01/17/20 06:20 Hgb 8.6 gm/dl (11.8-15.2) L 01/17/20 06:20 Hct 29.0 % (35.5-45.6) L 01/17/20 06:20 MCV 83 fl (84-94) L 01/17/20 06:20 MCH 25 pg (28-32) L 01/17/20 06:20 MCHC 30 % (32-34) L 01/17/20 06:20 RDW 21.1 % (13.2-15.2) H 01/17/20 06:20 Plt Count 517 K/mm3 (140-440) H 01/17/20 06:20 Lymph % (Auto) 15.0 % (13.4-35.0) 01/17/20 06:20 [place] % (Auto) 9.7 % (0.0-7.3) H 01/17/20 06:20 Eos % (Auto) 11.9 % (0.0-4.3) H 01/17/20 06:20 Baso % (Auto) 0.8 % (0.0-1.8) 01/17/20 06:20 Lymph # 1.3 K/mm3 (1.2-5.4) 01/17/20 06:20 [place] # 0.8 K/mm3 (0.0-0.8) 01/17/20 06:20 Eos # 1.0 K/mm3 (0.0-0.4) H 01/17/20 06:20 Baso # 0.1 K/mm3 (0.0-0.1) 01/17/20 06:20 Add Manual Diff Complete 12/24/19 04:53 Total Counted 100 12/24/19 04:53 Seg Neutrophils % 62.6 % (40.0-70.0) 01/17/20 06:20 Seg Neuts % (Manual) 60.0 % (40.0-70.0) 12/24/19 04:53 Band Neutrophils % 0 % 12/24/19 04:53 Lymphocytes % (Manual) 20.0 % (13.4-35.0) 12/24/19 04:53 Reactive Lymphs % (Man) 0 % 12/24/19 04:53 Monocytes % (Manual) 15.0 % (0.0-7.3) H 12/24/19 04:53 Eosinophils % (Manual) 4.0 % (0.0-4.3) 12/24/19 04:53 Basophils % (Manual) 0 % (0.0-1.8) 12/24/19 04:53 Metamyelocytes % 1.0 % 12/24/19 04:53 Myelocytes % 0 % 12/24/19 04:53 Promyelocytes % 0 % 12/24/19 04:53 Blast Cells % 0 % 12/24/19 04:53 Nucleated RBC % Not Reportable 12/24/19 04:53 Seg Neutrophils # 5.3 K/mm3 (1.8-7.7) 01/17/20 06:20 Seg Neutrophils # Man 3.5 K/mm3 (1.8-7.7) 12/24/19 04:53 Band Neutrophils # 0.0 K/mm3 12/24/19 04:53 Lymphocytes # (Manual) 1.2 K/mm3 (1.2-5.4) 12/24/19 04:53 Abs React Lymphs (Man) 0.0 K/mm3 12/24/19 04:53 Monocytes # (Manual) 0.9 K/mm3 (0.0-0.8) H 12/24/19 04:53 Eosinophils # (Manual) 0.2 K/mm3 (0.0-0.4) 12/24/19 04:53 Basophils # (Manual) 0.0 K/mm3 (0.0-0.1) 12/24/19 04:53 Metamyelocytes # 0.1 K/mm3 12/24/19 04:53 Myelocytes # 0.0 K/mm3 12/24/19 04:53 Promyelocytes # 0.0 K/mm3 12/24/19 04:53 Blast Cells # 0.0 K/mm3 12/24/19 04:53 WBC Morphology Not Reportable 12/24/19 04:53 Hypersegmented Neuts Not Reportable 12/24/19 04:53 Hyposegmented Neuts Not Reportable 12/24/19 04:53 Hypogranular Neuts Not Reportable 12/24/19 04:53 Smudge Cells Not Reportable 12/24/19 04:53 Toxic Granulation Not Reportable 12/24/19 04:53 Toxic Vacuolation Not Reportable 12/24/19 04:53 Dohle Bodies Not Reportable 12/24/19 04:53 Pelger-Huet Anomaly Not Reportable 12/24/19 04:53 Mervin Rods Not Reportable 12/24/19 04:53 Platelet Estimate Consistent w auto 12/24/19 04:53 Clumped Platelets Not Reportable 12/24/19 04:53 Plt Clumps, EDTA Not Reportable 12/24/19 04:53 Large Platelets Not Reportable 12/24/19 04:53 Giant Platelets Not Reportable 12/24/19 04:53 Platelet Satelliting Not Reportable 12/24/19 04:53 Plt Morphology Comment Not Reportable 12/24/19 04:53 RBC Morphology Not Reportable 12/24/19 04:53 Dimorphic RBCs Not Reportable 12/24/19 04:53 Polychromasia Rare 12/24/19 04:53 Hypochromasia 1+ 12/24/19 04:53 Poikilocytosis Not Reportable 12/24/19 04:53 Anisocytosis 1+ 12/24/19 04:53 Microcytosis Few 12/24/19 04:53 Macrocytosis Not Reportable 12/24/19 04:53 Spherocytes Not Reportable 12/24/19 04:53 Pappenheimer Bodies Not Reportable 12/24/19 04:53 Sickle Cells Not Reportable 12/24/19 04:53 Target Cells Not Reportable 12/24/19 04:53 Tear Drop Cells Not Reportable 12/24/19 04:53 Ovalocytes Few 12/24/19 04:53 Helmet Cells Not Reportable 12/24/19 04:53 Brink-[place] Bodies Not Reportable 12/24/19 04:53 Bradford Rings Not Reportable 12/24/19 04:53 Ileana Cells Not Reportable 12/24/19 04:53 Bite Cells Not Reportable 12/24/19 04:53 Crenated Cell Not Reportable 12/24/19 04:53 Elliptocytes Not Reportable 12/24/19 04:53 Acanthocytes (Spur) Not Reportable 12/24/19 04:53 Rouleaux Not Reportable 12/24/19 04:53 Hemoglobin C Crystals Not Reportable 12/24/19 04:53 Schistocytes Not Reportable 12/24/19 04:53 Malaria parasites Not Reportable 12/24/19 04:53 Gianni Bodies Not Reportable 12/24/19 04:53 Hem Pathologist Commnt No 12/24/19 04:53 PT 14.0 Sec. (12.2-14.9) 12/18/19 14:45 INR 1.10 (0.87-1.13) 12/18/19 14:45 APTT 29.4 Sec. (24.2-36.6) 12/18/19 14:45 D-Dimer 534.45 ng/mlDDU (0-234) H 12/18/19 14:45 ABG pH 7.223 pH Units (7.350-7.450) L 01/13/20 15:10 ABG pCO2 82.3 mm Hg 01/13/20 15:10 ABG pO2 81.4 mm Hg (80.0-90.0) 01/13/20 15:10 ABG HCO3 33.1 mmol/L (20.0-26.0) H 01/13/20 15:10 ABG O2 Saturation 94.7 % (95.0-99.0) L 01/13/20 15:10 ABG O2 Content 11.2 (0.0-44) 01/13/20 15:10 ABG Base Excess 4.2 mmol/L (-2.0-3.0) H 01/13/20 15:10 ABG Hemoglobin 8.5 gm/dl (14.0-18.0) L 01/13/20 15:10 ABG Carboxyhemoglobin 2.0 % (0.0-5.0) 01/13/20 15:10 ABG Methemoglobin 0.7 % (0.0-1.5) 01/13/20 15:10 Oxyhemoglobin 92.1 % (95.0-99.0) L 01/13/20 15:10 FiO2 50 % 01/13/20 15:10 Sodium 148 mmol/L (137-145) H 01/17/20 06:20 Potassium 4.6 mmol/L (3.6-5.0) 01/17/20 06:20 Chloride 104.3 mmol/L (98-107) 01/17/20 06:20 Carbon Dioxide 34 mmol/L (22-30) H 01/17/20 06:20 Anion Gap 14 mmol/L 01/17/20 06:20 BUN 21 mg/dL (9-20) H 01/17/20 06:20 Creatinine 0.6 mg/dL (0.8-1.5) L 01/17/20 06:20 Estimated GFR > 60 ml/min 01/17/20 06:20 BUN/Creatinine Ratio 35 % 01/17/20 06:20 Glucose 151 mg/dL (75-100) H 01/17/20 06:20 POC Glucose 178 (70-105) H 01/17/20 06:10 Lactic Acid 1.70 mmol/L (0.7-2.0) 12/30/19 05:06 Calcium 8.9 mg/dL (8.4-10.2) 01/17/20 06:20 Phosphorus 3.70 mg/dL (2.5-4.5) 12/27/19 03:48 Magnesium 2.60 mg/dL (1.7-2.3) H 12/30/19 05:06 Ferritin 83.4 ng/mL (13.0-400.0) 12/18/19 14:45 Total Bilirubin 0.20 mg/dL (0.1-1.2) 01/11/20 05:45 AST 67 units/L (5-40) H 01/11/20 05:45 ALT 45 units/L (7-56) 01/11/20 05:45 Alkaline Phosphatase 111 units/L (35-129) 01/11/20 05:45 Ammonia 39.0 umol/L (25-60) 12/18/19 14:45 Lactate Dehydrogenase 235 units/L (91-180) H 12/18/19 14:45 Lactate Dehydrogenase 236 units/L (91-180) H 12/18/19 14:45 Total Creatine Kinase 40 units/L (55-170) L 12/18/19 14:45 Troponin T 0.011 ng/mL (0.00-0.029) 12/18/19 14:45 C-Reactive Protein 8.40 mg/dL (0.00-1.30) H 12/18/19 14:45 C-Reactive Protein 8.50 mg/dL (0.00-1.30) H 12/18/19 14:45 Total Protein 5.9 g/dL (6.3-8.2) L 01/11/20 05:45 Albumin 2.8 g/dL (3.9-5) L 01/11/20 05:45 Albumin/Globulin Ratio 0.9 % 01/11/20 05:45 Procalcitonin 0.22 ng/mL (<0.15) 12/18/19 14:45 TSH 1.460 mlU/mL (0.270-4.200) 01/13/20 20:37 Free T4 0.63 ng/dL (0.76-1.46) L 01/13/20 20:37 Urine Color Yellow (Yellow) 12/19/19 16:50 Urine Turbidity Clear (Clear) 12/19/19 16:50 Urine pH 5.0 (5.0-7.0) 12/19/19 16:50 Ur Specific [place] 1.010 (1.003-1.030) 12/19/19 16:50 Urine Protein <15 mg/dl mg/dL (Negative) 12/19/19 16:50 Urine Glucose (UA) 150 mg/dL (Negative) 12/19/19 16:50 Urine Ketones Neg mg/dL (Negative) 12/19/19 16:50 Urine Blood Neg (Negative) 12/19/19 16:50 Urine Nitrite Neg (Negative) 12/19/19 16:50 Urine Bilirubin Neg (Negative) 12/19/19 16:50 Urine Urobilinogen < 2.0 mg/dL (<2.0) 12/19/19 16:50 Ur Leukocyte Esterase Tr (Negative) 12/19/19 16:50 Urine WBC (Auto) 7.0 /HPF (0.0-6.0) H 12/19/19 16:50 Urine RBC (Auto) 4.0 /HPF (0.0-6.0) 12/19/19 16:50 U Epithel Cells (Auto) 1.0 /HPF (0-13.0) 12/19/19 16:50 Urine Bacteria (Auto) 1+ /HPF (Negative) 12/19/19 16:50 Urine Mucus Few /HPF 12/19/19 16:50 Urine Osmolality 140 Mosm/kg 12/25/19 16:45 Urine Creatinine < 4.2 mg/dL (0.1-20.0) 12/25/19 16:45 Urine Sodium 10 mmol/L 12/25/19 16:45 Urine Total Protein < 4 mg/dL (5-11.8) L 12/25/19 16:45 Digoxin 0.3 ng/mL (0.9-2.0) L 12/18/19 14:45 Salicylates < 0.3 mg/dL (2.8-20.0) L 12/18/19 14:45 Acetaminophen < 5.0 ug/mL (10.0-30.0) L 12/18/19 14:45 Plasma/Serum Alcohol < 0.01 % (0-0.07) 12/18/19 14:45 Coronavirus (PCR) Negative (Negative) 12/21/19 14:45 AFB Identification 01/05/20 09:05 Fungal Id Prelim 01/05/20 09:05 Blood Type A POSITIVE 12/18/19 14:45 Antibody Screen Negative 12/18/19 14:45 - Diagnostic Impressions Diagnostic Impressions: Echocardiogram 12/28/19 14:07 Transthoracic Echocardiogram Indication: SOB BP: 95/51 HR: 99 Conclusions *The left ventricular chamber size is mildly dilated. *There is no left ventricular hypertrophy. *Global left ventricular systolic function is mildly decreased. *The estimated ejection fraction is 45-50%. *Abnormal left ventricular diastolic filling is observed, consistent with impaired relaxation. *The right ventricular global systolic function is mildly reduced. *The right ventricular systolic pressure is calculated at 53 mmHg. Findings Left Ventricle: The left ventricular chamber size is mildly dilated. There is no left ventricular hypertrophy. Global left ventricular systolic function is mildly decreased. The estimated ejection fraction is 45-50%. Abnormal left ventricular diastolic filling is observed, consistent with impaired relaxation. Left Atrium: The left atrial chamber size is normal. Right Ventricle: The right ventricular cavity size is normal. The right ventricular global systolic function is mildly reduced. Right Atrium: The right atrial cavity size is normal. Aortic Valve: The aortic valve leaflets are mildly thickened. There is no evidence of aortic regurgitation. Mitral Valve: The mitral valve leaflets are mildly thickened. There is no evidence of mitral regurgitation. Tricuspid Valve: The tricuspid valve leaflets are normal. There is mild tricuspid regurgitation. The right ventricular systolic pressure is calculated at 53 mmHg. Pulmonic Valve: The pulmonic valve appears normal. There is trace pulmonic regurgitation. Pericardium: There is no pericardial effusion. Aorta: The aorta appears normal. Venous: The inferior vena cava is dilated. Measurements Chambers 2D Name Value Normal Range IVSd (2D) 1.08 cm (0.6 - 1.1) LVPWd (2D) 1 cm (0.6 - 1.1) LVIDd (2D) 4.67 cm (3.7 - 5.6) LVIDs (2D) 3.89 cm (2 - 3.8) LV FS (2D) 16.76 % - EF Teichholz (2D) 35.14 % - Ao root diameter (2D) 2.86 cm (2 - 3.7) Volumes/Mass Name Value Normal Range LA ESV SP 4CH (A/L) 31.8 ml - LA ESV SP 2CH (A/L) 27.37 ml - LA ESV BP (A/L) 33.43 ml - LA ESV BP (A/L) index 14.11 ml/m2 - LA ESV SP 4CH (MOD) 26.83 ml - LA ESV SP 2CH (MOD) 29.59 ml - LA ESV BP (MOD) 30.47 ml - LA ESV BP (MOD) index 12.86 ml/m2 - Diastolic/Systolic Function Name Value Normal Range MV E-wave Vmax 0.39 m/sec - MV deceleration time 115.69 msec - MV A-wave Vmax 0.63 m/sec - MV E:A ratio 0.62 ratio - Aortic Valve Name Value Normal Range AV Vmax 1.14 m/sec - AV VTI 20.1 cm - AV peak gradient 5.17 mmHg - AV mean gradient 3.89 mmHg - LVOT diameter 2.02 cm - LVOT Vmax 0.99 m/sec - LVOT VTI 16.45 cm - LVOT peak gradient 3.95 mmHg - LVOT mean gradient 2.45 mmHg - SV LVOT 52.45 ml - RALPH (continuity Vmax) 2.78 cm2 - RALPH (continuity VTI) 2.61 cm2 - Tricuspid Valve Name Value Normal Range TR Vmax 3.36 m/sec - TR peak gradient 45 mmHg - RAP 8 mmHg - RVSP 53 mmHg - IVC diameter 2.33 cm (1.2 - 2.3) Pulmonic Valve/Qp:Qs Name Value Normal Range PV Vmax 0.89 m/sec - PV peak gradient 3.16 mmHg - UT end-diastolic Vmax 1.42 m/sec - PV acceleration time 79.92 msec - Sykes/IV: Voiding Method Condom Catheter IV Catheter Type [Right Upper PICC Line arm] IV Catheter Type [Right Leg] Intra-osseous IV Catheter Type [Right Wrist] Peripheral IV IV Catheter Type [Right Hand] INT / Saline Lock IV Catheter Type [Left Hand] INT / Saline Lock IV Catheter Type [Left Forearm INT / Saline Lock ] IV Catheter Type [Left Triple Lumen Cath Internal Jugular] Active Medications - Current Medications Current Medications: Generic Name Dose Route Start Last Admin Trade Name Freq PRN Reason Stop Dose Admin Acetaminophen 650 mg 12/29/19 09:21 01/03/20 18:31 Tylenol PO 650 mg Q4H PRN Administration Non Cardiac Pain or Temp>100.5 Albuterol/Ipratropium 1 ampul 12/18/19 14:00 01/17/20 07:20 Duoneb *Not For Prn Use* IH 1 ampul TIDRT SHANEL Administration Lipase/Protease/Amylase 1 each 12/19/19 08:29 Pancrecorry Cabrera 10,500 Unit FEEDTUBE PRN PRN For Clogged Feeding Tube Aspirin 81 mg 12/19/19 10:00 01/17/20 10:47 Baby Aspirin PO 81 mg DAILY SHANEL Administration Atropine Sulfate 1 mg 01/09/20 13:50 01/10/20 18:00 Atropine 0.1% (Cardiac) IV 1 mg PRN PRN Administration Bradycardia Bisacodyl 10 mg 01/02/20 15:48 01/02/20 18:25 Dulcolax UT 10 mg QDAY PRN Administration Constipation Docusate Sodium 100 mg 01/01/20 22:00 01/17/20 10:47 Colace PO 100 mg BID SHANEL Administration Famotidine 20 mg 12/20/19 10:00 01/17/20 10:46 Pepcid PO 20 mg BID SHANEL Administration Fentanyl 50 mcg 12/27/19 16:57 01/17/20 03:21 Sublimaze IV 50 mcg Q10MIN PRN Administration ANALGESIA Folic Acid 1 mg 12/19/19 10:00 01/17/20 10:46 Folvite PO 1 mg DAILY SHANEL Administration Hydrophilic Ointment 1 applic 12/18/19 12:35 Vaseline Lip Therapy TP Q2HR PRN Dry Lips Fentanyl Citrate 2,000 mcg in 100 mls @ 5.85 mls/hr 12/27/19 17:00 01/17/20 10:53 Fentanyl Drip Premix IV 3 mcg/kg/hr TITR SHANEL 17.55 mls/hr Administration Protocol 1 MCG/KG/HR Norepinephrine 4 mg in 250 mls @ 7.5 mls/hr 12/28/19 15:00 01/09/20 09:02 Levophed Drip 4 Mg/Ns 250 Ml IV 0 mcg/min TITR SHANEL 0 mls/hr Titration Protocol 2 MCG/MIN Vasopressin 20 unit/ Sodium 101 mls @ 9.09 mls/hr 12/30/19 12:30 01/01/20 13:44 Chloride IV 0 units/min TITR SHANEL 0 mls/hr Titration Protocol 0.03 UNITS/MIN Dopamine HCl/Dextrose 800 mg in 250 mls @ 4.388 mls/hr 12/31/19 16:00 01/16/20 09:00 Intropin Drip 800 Mg/D5w 250 Ml IV 2 mcg/kg/min TITR SHANEL 4.388 mls/hr Administration Protocol 2 MCG/KG/MIN Dextrose 1,000 mls @ 75 mls/hr 01/16/20 12:00 01/17/20 03:26 D5w IV 75 mls/hr DIRECT SHANEL Administration Insulin Glargine 15 units 01/10/20 14:00 01/17/20 10:49 Lantus SUB-Q 15 units BID SHANEL Administration Insulin Human Lispro 0 unit 12/31/19 14:00 01/17/20 10:50 Humalog SUB-Q Not Given Q4HR SHANEL Protocol Levothyroxine Sodium 88 mcg 12/19/19 06:00 01/17/20 06:08 Synthroid PO 88 mcg QAM@0600 SHANEL Administration Multi-Ingred Cream/Lotion/Oil/Oint 1 applic 12/18/19 12:35 Artificial Tears Ophth Oint OU Q4HR PRN Dry Eye(s) Polyethylene Glycol 17 gm 01/01/20 22:00 01/16/20 22:05 Miralax 3350 PO 17 gm QHS SHANEL Administration Simple Syrup 15 ml 12/19/19 08:29 01/06/20 04:58 Simple Syrup FEEDTUBE 15 ml PRN PRN Administration Hypoglycemia Simple Syrup 30 ml 12/19/19 08:29 Simple Syrup FEEDTUBE PRN PRN Hypoglycemia Sodium Bicarbonate 325 mg 12/19/19 08:29 Sodium Bicarbonate FEEDTUBE PRN PRN For Clogged Feeding Tube Sodium Chloride 10 ml 12/18/19 22:00 01/17/20 10:50 Sodium Chloride Flush Syringe 10 Ml IV 10 ml BID SHANEL Administration Sodium Chloride 10 ml 12/18/19 13:31 Sodium Chloride Flush Syringe 10 Ml IV PRN PRN LINE FLUSH Nutrition/Malnutrition Assess - Dietary Evaluation Nutrition/Malnutrition Findings: Nutrition Notes Start: 12/19/19 08:16 Freq: Status: Active Protocol: Document 01/17/20 09:35 LP (Rec: 01/17/20 09:37 LP [id number]) Nutrition Notes Initial or Follow up Reassessment Current Diagnosis Diabetes,Sepsis,Hypertension, Heart Failure,Respiratory Failure Other Pertinent Diagnosis COVID-19 (-), pneu Current Diet Vital AF 1.2 at 65ml/hr Labs/Tests Na 148 BUN 21 Pertinent Medications Reviewed Height 6 ft 2 in Weight 117 kg [place] Body Weight (kg) 86.36 BMI 33.1 Weight Status Obese Subjective/Other Information Pt tolerating TF at goal rate. Percent of energy/protein needs met: 94%/68% Burn Absent Trauma Absent Current % PO Negligible Minimum of two criteria No physical signs of malnutrition #1 Nutrition Diagnosis Inadequate oral intake Diagnosis Progress(for reassessment Continues documentation) Is patient on ventilator? Yes Is Patient Ambulatory and/or Out of Bed No REE-([place]-confined to bed) 2469.960 Kcal/Kg value to use for calculation 17 Approximate Energy Requirements Using 1989 kcal/Kg Calculation Used for Recommendations Kcal/kg Additional Notes Protein: 172g (>/=2g/kg using IBW 86kg) Fluid 1ml/kcal Nutrition Intervention Change Diet Order: TF Nutrition Support: Vital AF 1.2 at 65ml/hr Flush 250ml q4h for hypernatremia Flush 100ml q4h Kcal 1,872 Protein (gm) 117 Fluid (mL) 1,265 Goal #1 TF tolerance Goal #2 Meet at least 75% of energy and protein needs Anticipated Discharge Needs: unable to determine at this time Follow-Up By: 01/20/20 Additional Comments Follow for TF tolerance and Na levels
--- NOTE | 2020-01-17 12:14 | Progress Note ---
Assessment and Plan Sinus bradycardia is uncertain echo: LVEF 45-50% TSH 2.3 A persistently elevated vagal tone or vasodepressor reaction is a possible etiology, versus underlying conduction system disease. Pneumonia negative COVID PCR x 2 Acute Respiratory failure Acute kidney injury -resolved Positive MRSA-sputum Anemia Avoid AV estella blocking agents. Continue telemetry monitoring. Atropine to be used as needed for heart rate below 40. Subjective Date of service: 01/17/20 Principal diagnosis: Ac. Hypoxemic Resp Failure; Septic Shock; Magdiel. PNA; PUI COVID-19; CHF; JOE Interval history: Patient is awake but remains intubated and on low dose dopamine. For planned PEG and trach 01/17. Stable sinus rhythm on telemetry. Objective Vital Signs Temp Pulse Pulse Pulse Resp Resp BP 01/17/20 12:00 97.5 F L 01/17/20 11:10 45 L 149/79 01/17/20 07:52 97.9 F 01/17/20 07:20 67 61 15 121/67 01/17/20 07:16 68 14 121/67 01/17/20 07:00 81 14 147/96 01/17/20 06:45 71 16 131/82 01/17/20 06:30 60 11 L 167/119 01/17/20 06:15 115 H 21 139/73 01/17/20 06:00 98 H 16 152/77 01/17/20 05:46 75 15 152/77 01/17/20 05:30 107 H 19 152/77 01/17/20 05:16 91 H 16 152/77 01/17/20 05:00 84 14 152/85 01/17/20 04:46 74 13 128/77 01/17/20 04:40 41 L 119/83 01/17/20 04:30 81 14 119/83 01/17/20 04:16 87 14 128/77 01/17/20 04:00 86 14 120/75 01/17/20 03:46 88 14 120/75 01/17/20 03:30 88 14 141/87 01/17/20 03:21 16 01/17/20 03:16 84 16 161/68 01/17/20 03:00 50 L 16 147/73 01/17/20 02:46 51 L 14 147/73 01/17/20 02:30 51 L 15 190/85 01/17/20 02:16 53 L 16 169/85 01/17/20 02:00 47 L 6 L 147/70 01/17/20 01:45 56 L 14 156/81 01/17/20 01:30 58 L 14 159/77 01/17/20 01:16 56 L 14 159/77 01/17/20 01:00 53 L 13 188/100 01/17/20 00:59 66 01/17/20 00:46 51 L 0 L 188/100 01/17/20 00:33 44 L 197/103 01/17/20 00:30 56 L 14 176/100 01/17/20 00:16 47 L 14 176/100 01/17/20 00:00 91.7 F L 68 10 L 131/73 01/16/20 23:45 57 L 51 L 14 131/73 01/16/20 23:30 53 L 14 133/67 01/16/20 23:16 57 L 14 133/67 01/16/20 23:00 55 L 14 118/74 01/16/20 22:45 75 22 118/74 01/16/20 22:30 65 14 136/73 01/16/20 22:16 57 L 14 136/73 01/16/20 22:00 67 14 151/84 01/16/20 21:46 37 L 12 151/84 01/16/20 21:30 70 14 146/80 01/16/20 21:16 62 14 146/80 01/16/20 21:00 69 15 142/73 01/16/20 20:46 61 8 L 142/73 01/16/20 20:30 69 10 L 131/56 01/16/20 20:20 66 14 01/16/20 20:18 77 12 149/75 01/16/20 20:15 71 14 149/75 01/16/20 20:09 64 14 131/56 01/16/20 20:00 98.6 F 74 12 133/64 01/16/20 19:59 76 131/56 01/16/20 19:58 66 14 01/16/20 19:45 61 14 132/60 01/16/20 19:30 71 14 133/64 01/16/20 19:15 59 L 13 133/64 01/16/20 19:00 57 L 14 132/70 01/16/20 18:46 68 11 L 78/37 01/16/20 18:30 76 12 132/70 01/16/20 18:15 75 12 132/70 01/16/20 18:00 74 12 156/88 01/16/20 17:46 71 17 146/86 01/16/20 17:30 74 16 143/72 01/16/20 17:16 48 L 11 L 143/72 01/16/20 17:00 63 14 158/87 01/16/20 16:46 71 12 167/78 01/16/20 16:31 69 167/78 01/16/20 16:30 63 16 217/140 01/16/20 16:16 69 15 217/140 01/16/20 16:00 98.0 F 62 62 8 L 150/74 01/16/20 15:50 72 18 01/16/20 15:46 47 L 12 150/74 01/16/20 15:30 47 L 11 L 150/74 01/16/20 15:15 53 L 14 143/74 01/16/20 15:00 42 L 14 149/75 01/16/20 14:45 66 8 L 149/75 01/16/20 14:30 68 8 L 144/90 01/16/20 14:15 11 L 162/84 01/16/20 14:00 59 L 78 13 24 162/84 01/16/20 13:45 51 L 12 159/78 01/16/20 13:30 62 10 L 144/76 01/16/20 13:16 44 L 9 L 164/74 01/16/20 13:00 69 12 151/76 01/16/20 12:46 65 15 151/76 01/16/20 12:30 48 L 8 L 136/73 01/16/20 12:16 42 L 16 126/69 Pulse Ox 01/17/20 12:00 01/17/20 11:10 97 01/17/20 07:52 01/17/20 07:20 97 01/17/20 07:16 98 01/17/20 07:00 98 01/17/20 06:45 98 01/17/20 06:30 96 01/17/20 06:15 87 01/17/20 06:00 97 01/17/20 05:46 98 01/17/20 05:30 96 01/17/20 05:16 97 01/17/20 05:00 97 01/17/20 04:46 99 01/17/20 04:40 96 01/17/20 04:30 93 01/17/20 04:16 96 01/17/20 04:00 94 01/17/20 03:46 94 01/17/20 03:30 95 01/17/20 03:21 01/17/20 03:16 86 01/17/20 03:00 96 01/17/20 02:46 96 01/17/20 02:30 95 01/17/20 02:16 96 01/17/20 02:00 91 01/17/20 01:45 94 01/17/20 01:30 97 01/17/20 01:16 98 01/17/20 01:00 98 01/17/20 00:59 01/17/20 00:46 98 01/17/20 00:33 98 01/17/20 00:30 98 01/17/20 00:16 98 01/17/20 00:00 96 01/16/20 23:45 99 01/16/20 23:30 99 01/16/20 23:16 98 01/16/20 23:00 99 01/16/20 22:45 98 01/16/20 22:30 97 01/16/20 22:16 96 01/16/20 22:00 96 01/16/20 21:46 98 01/16/20 21:30 97 01/16/20 21:16 99 01/16/20 21:00 98 01/16/20 20:46 99 01/16/20 20:30 89 01/16/20 20:20 99 01/16/20 20:18 100 01/16/20 20:15 100 01/16/20 20:09 100 01/16/20 20:00 96 01/16/20 19:59 98 01/16/20 19:58 01/16/20 19:45 100 01/16/20 19:30 98 01/16/20 19:15 99 01/16/20 19:00 98 01/16/20 18:46 99 01/16/20 18:30 01/16/20 18:15 07/12/20 18:00 01/16/20 17:46 01/16/20 17:30 83 L 01/16/20 17:16 01/16/20 17:00 92 01/16/20 16:46 99 01/16/20 16:31 96 01/16/20 16:30 96 01/16/20 16:16 91 01/16/20 16:00 91 01/16/20 15:50 01/16/20 15:46 96 01/16/20 15:30 99 01/16/20 15:15 99 01/16/20 15:00 97 01/16/20 14:45 98 01/16/20 14:30 98 01/16/20 14:15 98 01/16/20 14:00 92 01/16/20 13:45 98 01/16/20 13:30 100 01/16/20 13:16 100 01/16/20 13:00 98 01/16/20 12:46 100 01/16/20 12:30 99 01/16/20 12:16 95 - Physical Examination General: Other (intubated on the vent) HEENT: Positive: PERRL Cardiac: Positive: Reg Rate and Rhythm - Labs and Meds CBC 01/17/20 Range/Units 06:20 WBC 8.5 (4.5-11.0) K/mm3 RBC 3.50 L (3.65-5.03) M/mm3 Hgb 8.6 L (11.8-15.2) gm/dl Hct 29.0 L (35.5-45.6) % Plt Count 517 H (140-440) K/mm3 Lymph # 1.3 (1.2-5.4) K/mm3 Wheeler # 0.8 (0.0-0.8) K/mm3 Eos # 1.0 H (0.0-0.4) K/mm3 Baso # 0.1 (0.0-0.1) K/mm3 Comprehensive Metabolic Panel 01/17/20 Range/Units 06:20 Sodium 148 H (137-145) mmol/L Potassium 4.6 (3.6-5.0) mmol/L Chloride 104.3 (98-107) mmol/L Carbon Dioxide 34 H (22-30) mmol/L BUN 21 H (9-20) mg/dL Creatinine 0.6 L (0.8-1.5) mg/dL Glucose 151 H (75-100) mg/dL Calcium 8.9 (8.4-10.2) mg/dL - Allied health notes Allied health notes reviewed: nursing
[2020-01-17] MEDS: DOPamine/D5W 800 MG/250 ML 800 MG/250 ML BAG IV SCH (15:15)
[2020-01-17] MEDS: POLYETHYLENE GLYCOL 3350 17 GM POWDER PO SCH (21:50)
[2020-01-18] MEDS: INSULIN LISPRO 100 UNIT/ML SUB-Q SCH ×5 (02:30→23:04)
[2020-01-18] MEDS: fentaNYL DRIP Premix 2,000 MCG/100 ML BAG IV SCH ×4 (03:47→19:33)
[2020-01-18 05:04] LABS: Basophils # (Auto) 0.1 K/mm3 (0.0-0.1); Basophils % (Auto) 1.3 % (0.0-1.8); Eosinophils # (Auto) 0.9 K/mm3 (0.0-0.4); Eosinophils % (Auto) 13.1 % (0.0-4.3); Lymphocytes # (Auto) 1.2 K/mm3 (1.2-5.4); Lymphocytes % (Auto) 18.4 % (13.4-35.0); Mean Corpuscular HGB Conc 30 % (32-34); Mean Corpuscular Volume 82 fl (84-94); Monocytes # (Auto) 0.8 K/mm3 (0.0-0.8); Monocytes % (Auto) 11.5 % (0.0-7.3); Platelet Count 450 K/mm3 (140-440); Red Blood Count 3.28 M/mm3 (3.65-5.03)
[2020-01-18 05:24] LABS: BUN/Creatinine Ratio 23; Blood Urea Nitrogen 18 mg/dL (9-20); Calcium 8.6 mg/dL (8.4-10.2); Hemolysis Index 3
[2020-01-18 05:28] LABS: INR 1.03 (0.87-1.13)
[2020-01-18] MEDS: LEVOTHYROXINE 88 MCG TAB PO SCH (05:33)
[2020-01-18] MEDS: IPRATROPIUM/ALBUTEROL SULFATE 3 ML AMPUL.NEB IH SCH ×3 (08:21→19:49)
[2020-01-18] MEDS ORDERED: DEXTROSE 50% IN WATER (25GM) 50 ML SYRINGE IV PRN (08:22)
--- NOTE | 2020-01-18 08:32 | Progress Note ---
Assessment and Plan Assessment and plan: --COVID-19 negative x2 --Acute hypoxic respiratory failure; intubated on ventilatory support Unable to wean, trach and PEG today --Sepsis with septic shock; requiring vasopressors Mild improvement, monitor off vasopressors Supportive care --Bilateral pneumonia; Completed antibiotics, monitor off antibiotics Ventilatory support --Acute kidney injury/ATN; Resolved, avoid nephrotoxins --Obesity; BMI 33.1 Patient needs weight reduction when medically stable --Sinus bradycardia; present on admission Now resolved, heart rate in 70s Cardiology following --Hypothyroidism; continue Synthroid --History of congestive heart failure --DVT prophylaxis Plan of care reviewed with the patient's nurse Manufacturing Coordinator recommendations noted and appreciated Critical care time 32 minutes History Interval history: Patient seen and examined at the bedside in ICU this morning Patient's chart medications tests reviewed Patient is scheduled for trach and PEG today Vital signs noted Hospitalist Physical - Constitutional Vitals: Temp Pulse Resp BP Pulse Ox 96.7 F L 73 14 100/57 97 01/18/20 04:00 01/18/20 08:00 01/18/20 08:00 01/18/20 08:00 01/18/20 08:00 General appearance: Present: severe distress, well-nourished, obese, other (Intubated on vent) - EENT Eyes: Present: PERRL, EOM intact - Neck Neck: Present: supple, normal ROM - Respiratory Respiratory effort: normal Respiratory: bilateral: diminished, rhonchi, negative: rales, wheezing - Cardiovascular Rhythm: regular Heart Sounds: Present: S1 & S2 - Extremities Extremities: no ischemia, No edema - Abdominal General gastrointestinal: soft, non-tender, non-distended, normal bowel sounds - Integumentary Integumentary: Present: clear, warm - Psychiatric Psychiatric: appropriate mood/affect - Neurologic Neurologic: moves all extremities HEART Score - HEART Score Troponin: Troponin T 0.011 ng/mL (0.00-0.029) 12/18/19 14:45 Results - Labs CBC & Chem 7: 01/18/20 04:45 01/18/20 04:45 Labs: Laboratory Last Values WBC 6.7 K/mm3 (4.5-11.0) 01/18/20 04:45 RBC 3.28 M/mm3 (3.65-5.03) L 01/18/20 04:45 Hgb 8.0 gm/dl (11.8-15.2) L 01/18/20 04:45 Hct 27.0 % (35.5-45.6) L 01/18/20 04:45 MCV 82 fl (84-94) L 01/18/20 04:45 MCH 24 pg (28-32) L 01/18/20 04:45 MCHC 30 % (32-34) L 01/18/20 04:45 RDW 21.0 % (13.2-15.2) H 01/18/20 04:45 Plt Count 450 K/mm3 (140-440) H 01/18/20 04:45 Lymph % (Auto) 18.4 % (13.4-35.0) 01/18/20 04:45 [place] % (Auto) 11.5 % (0.0-7.3) H 01/18/20 04:45 Eos % (Auto) 13.1 % (0.0-4.3) H 01/18/20 04:45 Baso % (Auto) 1.3 % (0.0-1.8) 01/18/20 04:45 Lymph # 1.2 K/mm3 (1.2-5.4) 01/18/20 04:45 [place] # 0.8 K/mm3 (0.0-0.8) 01/18/20 04:45 Eos # 0.9 K/mm3 (0.0-0.4) H 01/18/20 04:45 Baso # 0.1 K/mm3 (0.0-0.1) 01/18/20 04:45 Add Manual Diff Complete 12/24/19 04:53 Total Counted 100 12/24/19 04:53 Seg Neutrophils % 55.7 % (40.0-70.0) 01/18/20 04:45 Seg Neuts % (Manual) 60.0 % (40.0-70.0) 12/24/19 04:53 Band Neutrophils % 0 % 12/24/19 04:53 Lymphocytes % (Manual) 20.0 % (13.4-35.0) 12/24/19 04:53 Reactive Lymphs % (Man) 0 % 12/24/19 04:53 Monocytes % (Manual) 15.0 % (0.0-7.3) H 12/24/19 04:53 Eosinophils % (Manual) 4.0 % (0.0-4.3) 12/24/19 04:53 Basophils % (Manual) 0 % (0.0-1.8) 12/24/19 04:53 Metamyelocytes % 1.0 % 12/24/19 04:53 Myelocytes % 0 % 12/24/19 04:53 Promyelocytes % 0 % 12/24/19 04:53 Blast Cells % 0 % 12/24/19 04:53 Nucleated RBC % Not Reportable 12/24/19 04:53 Seg Neutrophils # 3.7 K/mm3 (1.8-7.7) 01/18/20 04:45 Seg Neutrophils # Man 3.5 K/mm3 (1.8-7.7) 12/24/19 04:53 Band Neutrophils # 0.0 K/mm3 12/24/19 04:53 Lymphocytes # (Manual) 1.2 K/mm3 (1.2-5.4) 12/24/19 04:53 Abs React Lymphs (Man) 0.0 K/mm3 12/24/19 04:53 Monocytes # (Manual) 0.9 K/mm3 (0.0-0.8) H 12/24/19 04:53 Eosinophils # (Manual) 0.2 K/mm3 (0.0-0.4) 12/24/19 04:53 Basophils # (Manual) 0.0 K/mm3 (0.0-0.1) 12/24/19 04:53 Metamyelocytes # 0.1 K/mm3 12/24/19 04:53 Myelocytes # 0.0 K/mm3 12/24/19 04:53 Promyelocytes # 0.0 K/mm3 12/24/19 04:53 Blast Cells # 0.0 K/mm3 12/24/19 04:53 WBC Morphology Not Reportable 12/24/19 04:53 Hypersegmented Neuts Not Reportable 12/24/19 04:53 Hyposegmented Neuts Not Reportable 12/24/19 04:53 Hypogranular Neuts Not Reportable 12/24/19 04:53 Smudge Cells Not Reportable 12/24/19 04:53 Toxic Granulation Not Reportable 12/24/19 04:53 Toxic Vacuolation Not Reportable 12/24/19 04:53 Dohle Bodies Not Reportable 12/24/19 04:53 Pelger-Huet Anomaly Not Reportable 12/24/19 04:53 Mervin Rods Not Reportable 12/24/19 04:53 Platelet Estimate Consistent w auto 12/24/19 04:53 Clumped Platelets Not Reportable 12/24/19 04:53 Plt Clumps, EDTA Not Reportable 12/24/19 04:53 Large Platelets Not Reportable 12/24/19 04:53 Giant Platelets Not Reportable 12/24/19 04:53 Platelet Satelliting Not Reportable 12/24/19 04:53 Plt Morphology Comment Not Reportable 12/24/19 04:53 RBC Morphology Not Reportable 12/24/19 04:53 Dimorphic RBCs Not Reportable 12/24/19 04:53 Polychromasia Rare 12/24/19 04:53 Hypochromasia 1+ 12/24/19 04:53 Poikilocytosis Not Reportable 12/24/19 04:53 Anisocytosis 1+ 12/24/19 04:53 Microcytosis Few 12/24/19 04:53 Macrocytosis Not Reportable 12/24/19 04:53 Spherocytes Not Reportable 12/24/19 04:53 Pappenheimer Bodies Not Reportable 12/24/19 04:53 Sickle Cells Not Reportable 12/24/19 04:53 Target Cells Not Reportable 12/24/19 04:53 Tear Drop Cells Not Reportable 12/24/19 04:53 Ovalocytes Few 12/24/19 04:53 Helmet Cells Not Reportable 12/24/19 04:53 Brink-Walker Bodies Not Reportable 12/24/19 04:53 [place] Rings Not Reportable 12/24/19 04:53 Ileana Cells Not Reportable 12/24/19 04:53 Bite Cells Not Reportable 12/24/19 04:53 Crenated Cell Not Reportable 12/24/19 04:53 Elliptocytes Not Reportable 12/24/19 04:53 Acanthocytes (Spur) Not Reportable 12/24/19 04:53 Rouleaux Not Reportable 12/24/19 04:53 Hemoglobin C Crystals Not Reportable 12/24/19 04:53 Schistocytes Not Reportable 12/24/19 04:53 Malaria parasites Not Reportable 12/24/19 04:53 Gianni Bodies Not Reportable 12/24/19 04:53 Hem Pathologist Commnt No 12/24/19 04:53 PT 13.3 Sec. (12.2-14.9) 01/18/20 04:45 INR 1.03 (0.87-1.13) 01/18/20 04:45 APTT 29.4 Sec. (24.2-36.6) 12/18/19 14:45 D-Dimer 534.45 ng/mlDDU (0-234) H 12/18/19 14:45 ABG pH 7.223 pH Units (7.350-7.450) L 01/13/20 15:10 ABG pCO2 82.3 mm Hg 01/13/20 15:10 ABG pO2 81.4 mm Hg (80.0-90.0) 01/13/20 15:10 ABG HCO3 33.1 mmol/L (20.0-26.0) H 01/13/20 15:10 ABG O2 Saturation 94.7 % (95.0-99.0) L 01/13/20 15:10 ABG O2 Content 11.2 (0.0-44) 01/13/20 15:10 ABG Base Excess 4.2 mmol/L (-2.0-3.0) H 01/13/20 15:10 ABG Hemoglobin 8.5 gm/dl (14.0-18.0) L 01/13/20 15:10 ABG Carboxyhemoglobin 2.0 % (0.0-5.0) 01/13/20 15:10 ABG Methemoglobin 0.7 % (0.0-1.5) 01/13/20 15:10 Oxyhemoglobin 92.1 % (95.0-99.0) L 01/13/20 15:10 FiO2 50 % 01/13/20 15:10 Sodium 141 mmol/L (137-145) 01/18/20 04:45 Potassium 4.5 mmol/L (3.6-5.0) 01/18/20 04:45 Chloride 98.8 mmol/L (98-107) 01/18/20 04:45 Carbon Dioxide 35 mmol/L (22-30) H 01/18/20 04:45 Anion Gap 12 mmol/L 01/18/20 04:45 BUN 18 mg/dL (9-20) 01/18/20 04:45 Creatinine 0.8 mg/dL (0.8-1.5) 01/18/20 04:45 Estimated GFR > 60 ml/min 01/18/20 04:45 BUN/Creatinine Ratio 23 % 01/18/20 04:45 Glucose 71 mg/dL (75-100) L 01/18/20 04:45 POC Glucose 75 (70-105) 01/18/20 06:27 Lactic Acid 1.70 mmol/L (0.7-2.0) 12/30/19 05:06 Calcium 8.6 mg/dL (8.4-10.2) 01/18/20 04:45 Phosphorus 3.70 mg/dL (2.5-4.5) 12/27/19 03:48 Magnesium 2.60 mg/dL (1.7-2.3) H 12/30/19 05:06 Ferritin 83.4 ng/mL (13.0-400.0) 12/18/19 14:45 Total Bilirubin 0.20 mg/dL (0.1-1.2) 01/11/20 05:45 AST 67 units/L (5-40) H 01/11/20 05:45 ALT 45 units/L (7-56) 01/11/20 05:45 Alkaline Phosphatase 111 units/L (35-129) 01/11/20 05:45 Ammonia 39.0 umol/L (25-60) 12/18/19 14:45 Lactate Dehydrogenase 235 units/L (91-180) H 12/18/19 14:45 Lactate Dehydrogenase 236 units/L (91-180) H 12/18/19 14:45 Total Creatine Kinase 40 units/L (55-170) L 12/18/19 14:45 Troponin T 0.011 ng/mL (0.00-0.029) 12/18/19 14:45 C-Reactive Protein 8.40 mg/dL (0.00-1.30) H 12/18/19 14:45 C-Reactive Protein 8.50 mg/dL (0.00-1.30) H 12/18/19 14:45 Total Protein 5.9 g/dL (6.3-8.2) L 01/11/20 05:45 Albumin 2.8 g/dL (3.9-5) L 01/11/20 05:45 Albumin/Globulin Ratio 0.9 % 01/11/20 05:45 Procalcitonin 0.22 ng/mL (<0.15) 12/18/19 14:45 TSH 1.460 mlU/mL (0.270-4.200) 01/13/20 20:37 Free T4 0.63 ng/dL (0.76-1.46) L 01/13/20 20:37 Urine Color Yellow (Yellow) 12/19/19 16:50 Urine Turbidity Clear (Clear) 12/19/19 16:50 Urine pH 5.0 (5.0-7.0) 12/19/19 16:50 Ur Specific [place] 1.010 (1.003-1.030) 12/19/19 16:50 Urine Protein <15 mg/dl mg/dL (Negative) 12/19/19 16:50 Urine Glucose (UA) 150 mg/dL (Negative) 12/19/19 16:50 Urine Ketones Neg mg/dL (Negative) 12/19/19 16:50 Urine Blood Neg (Negative) 12/19/19 16:50 Urine Nitrite Neg (Negative) 12/19/19 16:50 Urine Bilirubin Neg (Negative) 12/19/19 16:50 Urine Urobilinogen < 2.0 mg/dL (<2.0) 12/19/19 16:50 Ur Leukocyte Esterase Tr (Negative) 12/19/19 16:50 Urine WBC (Auto) 7.0 /HPF (0.0-6.0) H 12/19/19 16:50 Urine RBC (Auto) 4.0 /HPF (0.0-6.0) 12/19/19 16:50 U Epithel Cells (Auto) 1.0 /HPF (0-13.0) 12/19/19 16:50 Urine Bacteria (Auto) 1+ /HPF (Negative) 12/19/19 16:50 Urine Mucus Few /HPF 12/19/19 16:50 Urine Osmolality 140 Mosm/kg 12/25/19 16:45 Urine Creatinine < 4.2 mg/dL (0.1-20.0) 06/20/20 16:45 Urine Sodium 10 mmol/L 12/25/19 16:45 Urine Total Protein < 4 mg/dL (5-11.8) L 12/25/19 16:45 Digoxin 0.3 ng/mL (0.9-2.0) L 12/18/19 14:45 Salicylates < 0.3 mg/dL (2.8-20.0) L 12/18/19 14:45 Acetaminophen < 5.0 ug/mL (10.0-30.0) L 12/18/19 14:45 Plasma/Serum Alcohol < 0.01 % (0-0.07) 12/18/19 14:45 Coronavirus (PCR) Negative (Negative) 12/21/19 14:45 AFB Identification 01/05/20 09:05 Fungal Id Prelim 01/05/20 09:05 Blood Type A POSITIVE 01/18/20 04:45 Antibody Screen Negative 01/18/20 04:45 - Diagnostic Impressions Diagnostic Impressions: Echocardiogram 12/28/19 14:07 Transthoracic Echocardiogram Indication: SOB BP: 95/51 HR: 99 Conclusions *The left ventricular chamber size is mildly dilated. *There is no left ventricular hypertrophy. *Global left ventricular systolic function is mildly decreased. *The estimated ejection fraction is 45-50%. *Abnormal left ventricular diastolic filling is observed, consistent with impaired relaxation. *The right ventricular global systolic function is mildly reduced. *The right ventricular systolic pressure is calculated at 53 mmHg. Findings Left Ventricle: The left ventricular chamber size is mildly dilated. There is no left ventricular hypertrophy. Global left ventricular systolic function is mildly decreased. The estimated ejection fraction is 45-50%. Abnormal left ventricular diastolic filling is observed, consistent with impaired relaxation. Left Atrium: The left atrial chamber size is normal. Right Ventricle: The right ventricular cavity size is normal. The right ventricular global systolic function is mildly reduced. Right Atrium: The right atrial cavity size is normal. Aortic Valve: The aortic valve leaflets are mildly thickened. There is no evidence of aortic regurgitation. Mitral Valve: The mitral valve leaflets are mildly thickened. There is no evidence of mitral regurgitation. Tricuspid Valve: The tricuspid valve leaflets are normal. There is mild tricuspid regurgitation. The right ventricular systolic pressure is calculated at 53 mmHg. Pulmonic Valve: The pulmonic valve appears normal. There is trace pulmonic regurgitation. Pericardium: There is no pericardial effusion. Aorta: The aorta appears normal. Venous: The inferior vena cava is dilated. Measurements Chambers 2D Name Value Normal Range IVSd (2D) 1.08 cm (0.6 - 1.1) LVPWd (2D) 1 cm (0.6 - 1.1) LVIDd (2D) 4.67 cm (3.7 - 5.6) LVIDs (2D) 3.89 cm (2 - 3.8) LV FS (2D) 16.76 % - EF Teichholz (2D) 35.14 % - Ao root diameter (2D) 2.86 cm (2 - 3.7) Volumes/Mass Name Value Normal Range LA ESV SP 4CH (A/L) 31.8 ml - LA ESV SP 2CH (A/L) 27.37 ml - LA ESV BP (A/L) 33.43 ml - LA ESV BP (A/L) index 14.11 ml/m2 - LA ESV SP 4CH (MOD) 26.83 ml - LA ESV SP 2CH (MOD) 29.59 ml - LA ESV BP (MOD) 30.47 ml - LA ESV BP (MOD) index 12.86 ml/m2 - Diastolic/Systolic Function Name Value Normal Range MV E-wave Vmax 0.39 m/sec - MV deceleration time 115.69 msec - MV A-wave Vmax 0.63 m/sec - MV E:A ratio 0.62 ratio - Aortic Valve Name Value Normal Range AV Vmax 1.14 m/sec - AV VTI 20.1 cm - AV peak gradient 5.17 mmHg - AV mean gradient 3.89 mmHg - LVOT diameter 2.02 cm - LVOT Vmax 0.99 m/sec - LVOT VTI 16.45 cm - LVOT peak gradient 3.95 mmHg - LVOT mean gradient 2.45 mmHg - SV LVOT 52.45 ml - RALPH (continuity Vmax) 2.78 cm2 - RALPH (continuity VTI) 2.61 cm2 - Tricuspid Valve Name Value Normal Range TR Vmax 3.36 m/sec - TR peak gradient 45 mmHg - RAP 8 mmHg - RVSP 53 mmHg - IVC diameter 2.33 cm (1.2 - 2.3) Pulmonic Valve/Qp:Qs Name Value Normal Range PV Vmax 0.89 m/sec - PV peak gradient 3.16 mmHg - [place] end-diastolic Vmax 1.42 m/sec - PV acceleration time 79.92 msec - Sykes/IV: Voiding Method Condom Catheter IV Catheter Type [Right Upper PICC Line arm] IV Catheter Type [Right Leg] Intra-osseous IV Catheter Type [Right Wrist] Peripheral IV IV Catheter Type [Right Hand] INT / Saline Lock IV Catheter Type [Left Hand] INT / Saline Lock IV Catheter Type [Left Forearm INT / Saline Lock ] IV Catheter Type [Left Triple Lumen Cath Internal Jugular] Active Medications - Current Medications Current Medications: Generic Name Dose Route Start Last Admin Trade Name Freq PRN Reason Stop Dose Admin Acetaminophen 650 mg 12/29/19 09:21 01/03/20 18:31 Tylenol PO 650 mg Q4H PRN Administration Non Cardiac Pain or Temp>100.5 Albuterol/Ipratropium 1 ampul 12/18/19 14:00 01/17/20 20:12 Duoneb *Not For Prn Use* IH 1 ampul TIDRT SHANEL Administration Lipase/Protease/Amylase 1 each 12/19/19 08:29 Pancrecorry Cabrera 10,500 Unit FEEDTUBE PRN PRN For Clogged Feeding Tube Aspirin 81 mg 12/19/19 10:00 01/17/20 10:47 Baby Aspirin PO 81 mg DAILY SHANEL Administration Atropine Sulfate 1 mg 01/09/20 13:50 01/10/20 18:00 Atropine 0.1% (Cardiac) IV 1 mg PRN PRN Administration Bradycardia Bisacodyl 10 mg 01/02/20 15:48 01/02/20 18:25 Dulcolax [place] 10 mg QDAY PRN Administration Constipation Dextrose 50 ml 01/18/20 08:22 D50w (25gm) Syringe IV Q30MIN PRN Hypoglycemia Protocol Docusate Sodium 100 mg 01/01/20 22:00 01/17/20 22:02 Colace PO 100 mg BID SHANEL Administration Famotidine 20 mg 12/20/19 10:00 01/17/20 22:21 Pepcid PO 20 mg BID SHANEL Administration Fentanyl 50 mcg 12/27/19 16:57 01/17/20 03:21 Sublimaze IV 50 mcg Q10MIN PRN Administration ANALGESIA Folic Acid 1 mg 12/19/19 10:00 01/17/20 10:46 Folvite PO 1 mg DAILY SHANEL Administration Hydrophilic Ointment 1 applic 12/18/19 12:35 Vaseline Lip Therapy TP Q2HR PRN Dry Lips Fentanyl Citrate 2,000 mcg in 100 mls @ 5.85 mls/hr 12/27/19 17:00 01/18/20 03:47 Fentanyl Drip Premix IV 3 mcg/kg/hr TITR SHANEL 17.55 mls/hr Administration Protocol 1 MCG/KG/HR Norepinephrine 4 mg in 250 mls @ 7.5 mls/hr 12/28/19 15:00 01/09/20 09:02 Levophed Drip 4 Mg/Ns 250 Ml IV 0 mcg/min TITR SHANEL 0 mls/hr Titration Protocol 2 MCG/MIN Vasopressin 20 unit/ Sodium 101 mls @ 9.09 mls/hr 12/30/19 12:30 01/01/20 13:44 Chloride IV 0 units/min TITR SHANEL 0 mls/hr Titration Protocol 0.03 UNITS/MIN Dopamine HCl/Dextrose 800 mg in 250 mls @ 4.388 mls/hr 12/31/19 16:00 01/17/20 15:15 Intropin Drip 800 Mg/D5w 250 Ml IV 2 mcg/kg/min TITR SHANEL 4.388 mls/hr Administration Protocol 2 MCG/KG/MIN Dextrose 1,000 mls @ 75 mls/hr 01/16/20 12:00 01/17/20 15:01 D5w IV 75 mls/hr DIRECT SHANEL Administration Insulin Glargine 15 units 01/10/20 14:00 01/17/20 21:50 Lantus SUB-Q Not Given BID [facility] Insulin Human Lispro 0 unit 12/31/19 14:00 01/18/20 02:30 Humalog SUB-Q Not Given Q4HR [facility] Protocol Levothyroxine Sodium 88 mcg 12/19/19 06:00 01/18/20 05:33 Synthroid PO 88 mcg QAM@0600 SHANEL Administration Multi-Ingred Cream/Lotion/Oil/Oint 1 applic 12/18/19 12:35 Artificial Tears Ophth Oint OU Q4HR PRN Dry Eye(s) Polyethylene Glycol 17 gm 01/01/20 22:00 01/17/20 21:50 Miralax 3350 PO 17 gm QHS SHANEL Administration Simple Syrup 15 ml 12/19/19 08:29 01/06/20 04:58 Simple Syrup FEEDTUBE 15 ml PRN PRN Administration Hypoglycemia Simple Syrup 30 ml 12/19/19 08:29 Simple Syrup FEEDTUBE PRN PRN Hypoglycemia Sodium Bicarbonate 325 mg 12/19/19 08:29 Sodium Bicarbonate FEEDTUBE PRN PRN For Clogged Feeding Tube Sodium Chloride 10 ml 12/18/19 22:00 01/17/20 22:06 Sodium Chloride Flush Syringe 10 Ml IV 10 ml BID SHANEL Administration Sodium Chloride 10 ml 12/18/19 13:31 Sodium Chloride Flush Syringe 10 Ml IV PRN PRN LINE FLUSH Nutrition/Malnutrition Assess - Dietary Evaluation Nutrition/Malnutrition Findings: Nutrition Notes Start: 12/19/19 08:16 Freq: Status: Active Protocol: Document 01/17/20 09:35 LP (Rec: 01/17/20 09:37 LP [id number]) Nutrition Notes Initial or Follow up Reassessment Current Diagnosis Diabetes,Sepsis,Hypertension, Heart Failure,Respiratory Failure Other Pertinent Diagnosis COVID-19 (-), pneu Current Diet Vital AF 1.2 at 65ml/hr Labs/Tests Na 148 BUN 21 Pertinent Medications Reviewed Height 6 ft 2 in Weight 117 kg [place] Body Weight (kg) 86.36 BMI 33.1 Weight Status Obese Subjective/Other Information Pt tolerating TF at goal rate. Percent of energy/protein needs met: 94%/68% Burn Absent Trauma Absent Current % PO Negligible Minimum of two criteria No physical signs of malnutrition #1 Nutrition Diagnosis Inadequate oral intake Diagnosis Progress(for reassessment Continues documentation) Is patient on ventilator? Yes Is Patient Ambulatory and/or Out of Bed No REE-([facility]-confined to bed) 2469.960 Kcal/Kg value to use for calculation 17 Approximate Energy Requirements Using 1989 kcal/Kg Calculation Used for Recommendations Kcal/kg Additional Notes Protein: 172g (>/=2g/kg using IBW 86kg) Fluid 1ml/kcal Nutrition Intervention Change Diet Order: TF Nutrition Support: Vital AF 1.2 at 65ml/hr Flush 250ml q4h for hypernatremia Flush 100ml q4h Kcal 1,872 Protein (gm) 117 Fluid (mL) 1,265 Goal #1 TF tolerance Goal #2 Meet at least 75% of energy and protein needs Anticipated Discharge Needs: unable to determine at this time Follow-Up By: 01/20/20 Additional Comments Follow for TF tolerance and Na levels
[2020-01-18] MEDS: DOCUSATE SODIUM 100 MG/10 ML ORAL LIQD PO SCH ×2 (09:34→23:13)
[2020-01-18] MEDS: FAMOTIDINE 20 MG TAB PO SCH ×2 (09:34→23:13)
[2020-01-18] MEDS: ASPIRIN 81 MG TAB CHEW PO SCH (09:34)
[2020-01-18] MEDS: FOLIC ACID 1 MG TAB PO SCH (09:34)
[2020-01-18] MEDS: INSULIN GLARGINE 100 UNITS/ML SUB-Q SCH ×2 (09:34→23:05)
--- NOTE | 2020-01-18 09:48 | Progress Note ---
Assessment and Plan Acute Hypoxemic Respiratory Failure Severe Sepsis with Shock Bilateral Pneumonia Bradycardia JAGDEEP secondary to ATN, non oliguric Hypernatremia Morbid Obesity H/O CHF JOE -Trach and PEG placement today - Continue to wean dopamine, -CXR and ABG prn - Continue Free water at 250 cc q4 and hypotonic solutions for hypernatremia -Continue D5 water at 50ml/hour, improving hypernatremia -Continue to monitor off antibiotics, trend temperature curve and WCC -Continue with bowel regimen -Daily SAT and SBT assessment as tolerated - Continue care as below otherwise - accuchecks with glycemic control per SSI (While critically ill target blood glucose of 140-180 mg/dL; avoid hypoglycemia) - sedation for target RASS 0 to -1 - continue to wean supplemental oxygen for target O2 sat's > 92% - continue bronchodilators with pulmonary hygiene per RT - VAP bundle addressed - lung protective strategies - wean per pulmonary driven protocols otherwise - continue to avoid benzodiazepines, reduce the possibility of delirium - prn analgesia per CPOT score - Maintenance of sleep-wake cycle - continue to avoid benzodiazepines, reduce the possibility of delirium - continue enteral nutritional support at goal rate as tolerated - G.I. & VTE prophylaxis - PT/OT/ROM exercises - continue mobility protocols for pressure ulcer prophylaxis - repeat COVID-19 test negative - continue aspiration precautions - continue accuchecks with glycemic control per SSI (While critically ill target blood glucose of 140-180 mg/dL; avoid hypoglycemia) - Monitor hemodynamics closely - continue other care per attending / other consultants .... Re-evaluate in am & prn CONDITION: CRITICAL PROGNOSIS: GUARDED CODE STATUS: FULL CODE The high probability of a clinically significant, sudden or life-threatening deterioration of the [respiratory, cardiovascular, GI & neurologic] system(s) required my full and direct attention, intervention and personal management. The aggregate critical care time was [31] minutes without overlap. Time includes spent on; [x] Data Review and interpretation [x] Patient assessment and monitoring of vital signs [x] Documentation [x] Medication orders and management Subjective Date of service: 01/18/20 Principal diagnosis: Ac. Hypoxemic Resp Failure; Septic Shock; Magdiel. PNA; PUI COVID-19; CHF; JOE Interval history: Patient is seen today for: Acute Hypoxemic Respiratory Failure; Severe Sepsis with Shock; Bilateral Pneumonia; PUI COVID-19; Morbid Obesity; H/O CHF; JOE Seen and examined at bedside; 24hour events reviewed; nursing and respiratory care staff consulted; no adverse overnight events reported to me; resting peacefully in bed; remains on MVS; remains on vasopressor support dopamine at 2 mcg for bradycardia. No fevers,remains on free water flushes of 240 q4 ,on going agitation at night, trying to climb out of bed, reaching for ETT Scheduled for trach and PEG placement today Objective Vital Signs - 12hr 01/17/20 01/17/20 01/17/20 22:00 22:16 22:30 Temperature Pulse Rate 53 L 70 74 Pulse Rate [ 59 L From Monitor] Respiratory 16 22 15 Rate Blood Pressure 135/67 139/85 169/104 O2 Sat by Pulse 95 95 95 Oximetry 01/17/20 01/17/20 01/17/20 22:45 23:00 23:15 Temperature Pulse Rate 57 L 68 69 Pulse Rate [ From Monitor] Respiratory 14 14 14 Rate Blood Pressure 128/69 128/69 109/60 O2 Sat by Pulse 92 93 96 Oximetry 01/17/20 01/17/20 01/17/20 23:20 23:30 23:45 Temperature Pulse Rate 69 69 75 Pulse Rate [ 63 From Monitor] Respiratory 14 14 14 Rate Blood Pressure 111/66 95/47 O2 Sat by Pulse 96 98 94 Oximetry 01/18/20 01/18/20 01/18/20 00:00 00:06 00:15 Temperature 96 F L Pulse Rate 70 73 Pulse Rate [ From Monitor] Respiratory 14 14 Rate Blood Pressure 88/48 88/48 90/46 O2 Sat by Pulse 93 94 94 Oximetry 01/18/20 01/18/20 01/18/20 00:30 00:45 01:00 Temperature Pulse Rate 73 67 73 Pulse Rate [ From Monitor] Respiratory 14 14 14 Rate Blood Pressure 97/55 100/54 98/51 O2 Sat by Pulse 97 96 95 Oximetry 01/18/20 01/18/20 01/18/20 01:15 01:30 01:45 Temperature Pulse Rate 71 72 65 Pulse Rate [ From Monitor] Respiratory 14 14 14 Rate Blood Pressure 101/53 101/53 99/55 O2 Sat by Pulse 95 98 96 Oximetry 01/18/20 01/18/20 01/18/20 02:00 02:15 02:30 Temperature Pulse Rate 59 L 69 70 Pulse Rate [ From Monitor] Respiratory 14 14 14 Rate Blood Pressure 99/55 99/56 101/57 O2 Sat by Pulse 95 94 95 Oximetry 01/18/20 01/18/20 01/18/20 02:45 03:00 03:15 Temperature Pulse Rate 63 66 69 Pulse Rate [ From Monitor] Respiratory 14 14 14 Rate Blood Pressure 100/52 97/57 88/51 O2 Sat by Pulse 93 94 96 Oximetry 01/18/20 01/18/20 01/18/20 03:30 03:45 04:00 Temperature 96.7 F L Pulse Rate 66 68 59 L Pulse Rate [ From Monitor] Respiratory 14 14 14 Rate Blood Pressure 94/55 98/54 98/54 O2 Sat by Pulse 94 95 95 Oximetry 01/18/20 01/18/20 01/18/20 04:16 04:30 04:45 Temperature Pulse Rate 60 64 56 L Pulse Rate [ From Monitor] Respiratory 14 14 14 Rate Blood Pressure 125/83 125/83 135/76 O2 Sat by Pulse 95 96 95 Oximetry 01/18/20 01/18/20 01/18/20 05:00 05:15 05:18 Temperature Pulse Rate 64 61 Pulse Rate [ From Monitor] Respiratory 18 17 Rate Blood Pressure 135/76 143/101 143/104 O2 Sat by Pulse 91 93 95 Oximetry 01/18/20 01/18/20 01/18/20 05:20 05:31 05:45 Temperature Pulse Rate 64 67 77 Pulse Rate [ 63 From Monitor] Respiratory 14 15 17 Rate Blood Pressure 123/68 132/75 O2 Sat by Pulse 95 98 95 Oximetry 01/18/20 01/18/20 01/18/20 06:01 06:15 06:31 Temperature Pulse Rate 71 70 60 Pulse Rate [ From Monitor] Respiratory 14 14 12 Rate Blood Pressure 128/65 142/67 137/93 O2 Sat by Pulse 94 95 90 Oximetry 01/18/20 01/18/20 01/18/20 06:45 07:00 07:15 Temperature Pulse Rate 78 79 81 Pulse Rate [ From Monitor] Respiratory 14 14 14 Rate Blood Pressure 137/93 103/59 99/59 O2 Sat by Pulse 100 98 97 Oximetry 01/18/20 01/18/20 01/18/20 07:30 07:45 08:00 Temperature 97.4 F L Pulse Rate 80 75 73 Pulse Rate [ 63 From Monitor] Respiratory 14 14 17 Rate Blood Pressure 92/52 92/56 100/57 O2 Sat by Pulse 96 95 97 Oximetry 01/18/20 01/18/20 01/18/20 08:15 08:20 08:30 Temperature Pulse Rate 83 69 68 Pulse Rate [ From Monitor] Respiratory 11 L 14 Rate Blood Pressure 100/57 119/89 103/50 O2 Sat by Pulse 96 98 97 Oximetry 01/18/20 01/18/20 01/18/20 08:45 09:00 09:15 Temperature Pulse Rate 69 75 75 Pulse Rate [ From Monitor] Respiratory 14 13 14 Rate Blood Pressure 97/46 114/73 121/64 O2 Sat by Pulse 96 97 95 Oximetry Constitutional: no acute distress, alert, other (elderly obese AAM with mildly increrased respiratory effort at rest on MVS) Eyes: non-icteric ENT: oropharynx moist, other (ETT 24 cm KOLBY) Neck: supple, no lymphadenopathy, no JVD Effort: normal Ascultation: Bilateral: diminished breath sounds, rhonchi, other (diminished bibasilar air entry) Percussion: Bilateral: not dull Cardiovascular: regular rate and rhythm (Bradycardia), other (S1,S2) Gastrointestinal: normoactive bowel sounds, soft, non-tender, other (protuberant) Integumentary: rash (stasis dermatyitis) Extremities: no cyanosis, pink and warm, pulses normal, no ischemia or petechiae, edema (trace) Neurologic: pupils equal and round, other (awake, responds to tactile and verbal stimuli) Psychiatric: other (unable to assess) CBC and BMP: 01/19/20 05:45 01/19/20 05:45 ABG, PT/INR, D-dimer: ABG ABG pH 7.223 pH Units (7.350-7.450) L 01/13/20 15:10 ABG pCO2 82.3 mm Hg 01/13/20 15:10 ABG pO2 81.4 mm Hg (80.0-90.0) 01/13/20 15:10 ABG O2 Saturation 94.7 % (95.0-99.0) L 01/13/20 15:10 PT/INR, D-dimer PT 13.3 Sec. (12.2-14.9) 01/18/20 04:45 INR 1.03 (0.87-1.13) 01/18/20 04:45 D-Dimer 534.45 ng/mlDDU (0-234) H 12/18/19 14:45 Abnormal lab findings: Abnormal Labs 12/18/19 12/18/19 12/18/19 12:23 14:45 14:45 WBC RBC Hgb 10.4 L Hct 35.2 L MCV MCH 25 L MCHC 30 L RDW 18.8 H Plt Count Lymph % (Auto) [place] % (Auto) 11.6 H Eos % (Auto) 4.8 H Baso % (Auto) Lymph # [place] # 1.0 H Eos # Baso # Seg Neutrophils % Monocytes % (Manual) Monocytes # (Manual) D-Dimer ABG pH ABG pO2 ABG HCO3 ABG O2 Saturation ABG Base Excess ABG Hemoglobin Oxyhemoglobin Sodium Potassium Chloride Carbon Dioxide BUN Creatinine Glucose POC Glucose 328 H Lactic Acid Calcium Magnesium AST ALT Lactate Dehydrogenase Total Creatine Kinase 40 L C-Reactive Protein Total Protein Albumin Free T4 Urine WBC (Auto) Urine Total Protein Digoxin Salicylates Acetaminophen 12/18/19 12/18/19 12/18/19 14:45 14:45 14:45 WBC RBC Hgb Hct MCV MCH MCHC RDW Plt Count Lymph % (Auto) [place] % (Auto) Eos % (Auto) Baso % (Auto) Lymph # [place] # Eos # Baso # Seg Neutrophils % Monocytes % (Manual) Monocytes # (Manual) D-Dimer 534.45 H ABG pH ABG pO2 ABG HCO3 ABG O2 Saturation ABG Base Excess ABG Hemoglobin Oxyhemoglobin Sodium 156 H Potassium Chloride 112.3 H Carbon Dioxide 31 H BUN 32 H Creatinine Glucose 328 H POC Glucose Lactic Acid Calcium Magnesium AST ALT Lactate Dehydrogenase 235 H Total Creatine Kinase C-Reactive Protein 8.50 H Total Protein Albumin 3.6 L Free T4 Urine WBC (Auto) Urine Total Protein Digoxin 0.3 L Salicylates < 0.3 L Acetaminophen 12/18/19 12/18/19 12/18/19 14:45 14:45 16:00 WBC RBC Hgb Hct MCV MCH MCHC RDW Plt Count Lymph % (Auto) [place] % (Auto) Eos % (Auto) Baso % (Auto) Lymph # [place] # Eos # Baso # Seg Neutrophils % Monocytes % (Manual) Monocytes # (Manual) D-Dimer ABG pH ABG pO2 69.8 L ABG HCO3 31.8 H ABG O2 Saturation ABG Base Excess 5.4 H ABG Hemoglobin 10.0 L Oxyhemoglobin 92.9 L Sodium Potassium Chloride Carbon Dioxide BUN Creatinine Glucose 314 H POC Glucose Lactic Acid Calcium Magnesium AST ALT Lactate Dehydrogenase 236 H Total Creatine Kinase C-Reactive Protein 8.40 H Total Protein Albumin Free T4 Urine WBC (Auto) Urine Total Protein Digoxin Salicylates Acetaminophen < 5.0 L 12/18/19 12/18/19 12/18/19 16:35 18:30 22:56 WBC RBC Hgb Hct MCV MCH MCHC RDW Plt Count Lymph % (Auto) [place] % (Auto) Eos % (Auto) Baso % (Auto) Lymph # [place] # Eos # Baso # Seg Neutrophils % Monocytes % (Manual) Monocytes # (Manual) D-Dimer ABG pH ABG pO2 ABG HCO3 ABG O2 Saturation ABG Base Excess ABG Hemoglobin Oxyhemoglobin Sodium Potassium Chloride Carbon Dioxide BUN Creatinine Glucose POC Glucose 310 H 353 H Lactic Acid 2.50 H* Calcium Magnesium AST ALT Lactate Dehydrogenase Total Creatine Kinase C-Reactive Protein Total Protein Albumin Free T4 Urine WBC (Auto) Urine Total Protein Digoxin Salicylates Acetaminophen 12/19/19 12/19/19 12/19/19 04:13 04:13 06:00 WBC RBC Hgb 10.0 L Hct 34.2 L MCV MCH 25 L MCHC 29 L RDW 19.0 H Plt Count Lymph % (Auto) [place] % (Auto) 10.1 H Eos % (Auto) Baso % (Auto) Lymph # [place] # 1.1 H Eos # Baso # Seg Neutrophils % 71.8 H Monocytes % (Manual) Monocytes # (Manual) D-Dimer ABG pH ABG pO2 186.5 H ABG HCO3 27.8 H ABG O2 Saturation 99.1 H ABG Base Excess ABG Hemoglobin 10.4 L Oxyhemoglobin Sodium 157 H Potassium Chloride 119.1 H Carbon Dioxide BUN 26 H Creatinine Glucose 302 H POC Glucose Lactic Acid Calcium 7.9 L Magnesium AST 85 H ALT 61 H Lactate Dehydrogenase Total Creatine Kinase C-Reactive Protein Total Protein Albumin 3.0 L Free T4 Urine WBC (Auto) Urine Total Protein Digoxin Salicylates Acetaminophen 12/19/19 12/19/19 12/19/19 08:30 11:55 16:50 WBC RBC Hgb Hct MCV MCH MCHC RDW Plt Count Lymph % (Auto) [place] % (Auto) Eos % (Auto) Baso % (Auto) Lymph # [place] # Eos # Baso # Seg Neutrophils % Monocytes % (Manual) Monocytes # (Manual) D-Dimer ABG pH ABG pO2 ABG HCO3 ABG O2 Saturation ABG Base Excess ABG Hemoglobin Oxyhemoglobin Sodium Potassium Chloride Carbon Dioxide BUN Creatinine Glucose POC Glucose 264 H 251 H Lactic Acid Calcium Magnesium AST ALT Lactate Dehydrogenase Total Creatine Kinase C-Reactive Protein Total Protein Albumin Free T4 Urine WBC (Auto) 7.0 H Urine Total Protein Digoxin Salicylates Acetaminophen 12/19/19 12/19/19 12/20/19 17:41 23:42 03:35 WBC RBC Hgb Hct MCV MCH MCHC RDW Plt Count Lymph % (Auto) [place] % (Auto) Eos % (Auto) Baso % (Auto) Lymph # [place] # Eos # Baso # Seg Neutrophils % Monocytes % (Manual) Monocytes # (Manual) D-Dimer ABG pH ABG pO2 ABG HCO3 27.7 H ABG O2 Saturation ABG Base Excess ABG Hemoglobin 11.6 L Oxyhemoglobin 94.9 L Sodium Potassium Chloride Carbon Dioxide BUN Creatinine Glucose POC Glucose 180 H 205 H Lactic Acid Calcium Magnesium AST ALT Lactate Dehydrogenase Total Creatine Kinase C-Reactive Protein Total Protein Albumin Free T4 Urine WBC (Auto) Urine Total Protein Digoxin Salicylates Acetaminophen 12/20/19 12/20/19 12/20/19 04:45 04:45 05:27 WBC RBC Hgb 9.4 L Hct 31.4 L MCV MCH 25 L MCHC 30 L RDW 19.4 H Plt Count Lymph % (Auto) [place] % (Auto) 10.2 H Eos % (Auto) 6.0 H Baso % (Auto) Lymph # 0.9 L [place] # Eos # Baso # Seg Neutrophils % Monocytes % (Manual) Monocytes # (Manual) D-Dimer ABG pH ABG pO2 ABG HCO3 ABG O2 Saturation ABG Base Excess ABG Hemoglobin Oxyhemoglobin Sodium 153 H Potassium Chloride 114.6 H Carbon Dioxide BUN Creatinine Glucose 170 H POC Glucose 188 H Lactic Acid Calcium 7.9 L Magnesium AST ALT Lactate Dehydrogenase Total Creatine Kinase C-Reactive Protein Total Protein Albumin Free T4 Urine WBC (Auto) Urine Total Protein Digoxin Salicylates Acetaminophen 12/20/19 12/20/19 12/21/19 12:26 18:20 00:20 WBC RBC Hgb Hct MCV MCH MCHC RDW Plt Count Lymph % (Auto) [place] % (Auto) Eos % (Auto) Baso % (Auto) Lymph # [place] # Eos # Baso # Seg Neutrophils % Monocytes % (Manual) Monocytes # (Manual) D-Dimer ABG pH ABG pO2 ABG HCO3 ABG O2 Saturation ABG Base Excess ABG Hemoglobin Oxyhemoglobin Sodium Potassium Chloride Carbon Dioxide BUN Creatinine Glucose POC Glucose 200 H 263 H 218 H Lactic Acid Calcium Magnesium AST ALT Lactate Dehydrogenase Total Creatine Kinase C-Reactive Protein Total Protein Albumin Free T4 Urine WBC (Auto) Urine Total Protein Digoxin Salicylates Acetaminophen 12/21/19 12/21/19 12/21/19 04:38 05:26 12:35 WBC RBC Hgb Hct MCV MCH MCHC RDW Plt Count Lymph % (Auto) [place] % (Auto) Eos % (Auto) Baso % (Auto) Lymph # [place] # Eos # Baso # Seg Neutrophils % Monocytes % (Manual) Monocytes # (Manual) D-Dimer ABG pH ABG pO2 ABG HCO3 ABG O2 Saturation ABG Base Excess ABG Hemoglobin Oxyhemoglobin Sodium 149 H Potassium 3.5 L Chloride 110.5 H Carbon Dioxide BUN Creatinine Glucose 158 H POC Glucose 193 H 193 H Lactic Acid Calcium Magnesium AST ALT Lactate Dehydrogenase Total Creatine Kinase C-Reactive Protein Total Protein Albumin Free T4 Urine WBC (Auto) Urine Total Protein Digoxin Salicylates Acetaminophen 12/21/19 12/22/19 12/22/19 18:29 00:03 05:15 WBC RBC Hgb 10.3 L Hct 34.7 L MCV MCH 25 L MCHC 30 L RDW 19.4 H Plt Count Lymph % (Auto) 9.0 L [place] % (Auto) 12.3 H Eos % (Auto) 5.0 H Baso % (Auto) Lymph # 0.5 L [place] # Eos # Baso # Seg Neutrophils % 73.2 H Monocytes % (Manual) Monocytes # (Manual) D-Dimer ABG pH ABG pO2 ABG HCO3 ABG O2 Saturation ABG Base Excess ABG Hemoglobin Oxyhemoglobin Sodium Potassium Chloride Carbon Dioxide BUN Creatinine Glucose POC Glucose 186 H 143 H Lactic Acid Calcium Magnesium AST ALT Lactate Dehydrogenase Total Creatine Kinase C-Reactive Protein Total Protein Albumin Free T4 Urine WBC (Auto) Urine Total Protein Digoxin Salicylates Acetaminophen 06/12/22/19 12/22/19 05:15 06:02 12:13 WBC RBC Hgb Hct MCV MCH MCHC RDW Plt Count Lymph % (Auto) [place] % (Auto) Eos % (Auto) Baso % (Auto) Lymph # [place] # Eos # Baso # Seg Neutrophils % Monocytes % (Manual) Monocytes # (Manual) D-Dimer ABG pH ABG pO2 ABG HCO3 ABG O2 Saturation ABG Base Excess ABG Hemoglobin Oxyhemoglobin Sodium 152 H Potassium Chloride 113.5 H Carbon Dioxide BUN Creatinine Glucose 126 H POC Glucose 144 H 159 H Lactic Acid Calcium Magnesium AST ALT Lactate Dehydrogenase Total Creatine Kinase C-Reactive Protein Total Protein Albumin Free T4 Urine WBC (Auto) Urine Total Protein Digoxin Salicylates Acetaminophen 12/22/19 12/22/19 12/23/19 18:03 23:50 05:27 WBC RBC Hgb Hct MCV MCH MCHC RDW Plt Count Lymph % (Auto) [place] % (Auto) Eos % (Auto) Baso % (Auto) Lymph # [place] # Eos # Baso # Seg Neutrophils % Monocytes % (Manual) Monocytes # (Manual) D-Dimer ABG pH ABG pO2 ABG HCO3 ABG O2 Saturation ABG Base Excess ABG Hemoglobin Oxyhemoglobin Sodium Potassium Chloride Carbon Dioxide BUN Creatinine Glucose POC Glucose 140 H 227 H 185 H Lactic Acid Calcium Magnesium AST ALT Lactate Dehydrogenase Total Creatine Kinase C-Reactive Protein Total Protein Albumin Free T4 Urine WBC (Auto) Urine Total Protein Digoxin Salicylates Acetaminophen 12/23/19 12/23/19 12/23/19 12:13 16:05 16:40 WBC RBC Hgb Hct MCV MCH MCHC RDW Plt Count Lymph % (Auto) [place] % (Auto) Eos % (Auto) Baso % (Auto) Lymph # [place] # Eos # Baso # Seg Neutrophils % Monocytes % (Manual) Monocytes # (Manual) D-Dimer ABG pH 7.259 L ABG pO2 76.2 L ABG HCO3 30.6 H ABG O2 Saturation 94.6 L ABG Base Excess ABG Hemoglobin 11.5 L Oxyhemoglobin 92.2 L Sodium 163 H* D Potassium 3.4 L Chloride 120.1 H Carbon Dioxide BUN Creatinine Glucose 162 H POC Glucose 132 H Lactic Acid Calcium Magnesium AST ALT Lactate Dehydrogenase Total Creatine Kinase C-Reactive Protein Total Protein Albumin Free T4 Urine WBC (Auto) Urine Total Protein Digoxin Salicylates Acetaminophen 12/23/19 12/24/19 12/24/19 17:53 00:48 04:20 WBC RBC Hgb Hct MCV MCH MCHC RDW Plt Count Lymph % (Auto) [place] % (Auto) Eos % (Auto) Baso % (Auto) Lymph # [place] # Eos # Baso # Seg Neutrophils % Monocytes % (Manual) Monocytes # (Manual) D-Dimer ABG pH ABG pO2 ABG HCO3 30.4 H ABG O2 Saturation ABG Base Excess 3.9 H ABG Hemoglobin 10.3 L Oxyhemoglobin 94.4 L Sodium Potassium Chloride Carbon Dioxide BUN Creatinine Glucose POC Glucose 180 H 174 H Lactic Acid Calcium Magnesium AST ALT Lactate Dehydrogenase Total Creatine Kinase C-Reactive Protein Total Protein Albumin Free T4 Urine WBC (Auto) Urine Total Protein Digoxin Salicylates Acetaminophen 12/24/19 12/24/19 12/24/19 04:53 04:53 11:50 WBC RBC Hgb 9.7 L Hct 33.2 L MCV MCH 25 L MCHC 29 L RDW 20.1 H Plt Count Lymph % (Auto) [place] % (Auto) Eos % (Auto) Baso % (Auto) Lymph # [place] # Eos # Baso # Seg Neutrophils % Monocytes % (Manual) 15.0 H Monocytes # (Manual) 0.9 H D-Dimer ABG pH ABG pO2 ABG HCO3 ABG O2 Saturation ABG Base Excess ABG Hemoglobin Oxyhemoglobin Sodium 163 H* Potassium 3.2 L Chloride 122.6 H Carbon Dioxide BUN Creatinine Glucose 168 H POC Glucose 190 H Lactic Acid Calcium Magnesium AST ALT Lactate Dehydrogenase Total Creatine Kinase C-Reactive Protein Total Protein Albumin Free T4 Urine WBC (Auto) Urine Total Protein Digoxin Salicylates Acetaminophen 12/24/19 12/24/19 12/24/19 15:00 16:28 21:15 WBC RBC Hgb Hct MCV MCH MCHC RDW Plt Count Lymph % (Auto) [place] % (Auto) Eos % (Auto) Baso % (Auto) Lymph # [place] # Eos # Baso # Seg Neutrophils % Monocytes % (Manual) Monocytes # (Manual) D-Dimer ABG pH ABG pO2 ABG HCO3 ABG O2 Saturation ABG Base Excess ABG Hemoglobin Oxyhemoglobin Sodium 165 H* D 163 H* Potassium Chloride Carbon Dioxide BUN Creatinine Glucose POC Glucose 160 H Lactic Acid Calcium Magnesium AST ALT Lactate Dehydrogenase Total Creatine Kinase C-Reactive Protein Total Protein Albumin Free T4 Urine WBC (Auto) Urine Total Protein Digoxin Salicylates Acetaminophen 12/25/19 12/25/19 12/25/19 00:31 05:38 05:46 WBC RBC Hgb 9.7 L Hct 32.5 L MCV MCH 25 L MCHC 30 L RDW 19.4 H Plt Count Lymph % (Auto) [place] % (Auto) Eos % (Auto) Baso % (Auto) Lymph # [place] # Eos # Baso # Seg Neutrophils % Monocytes % (Manual) Monocytes # (Manual) D-Dimer ABG pH ABG pO2 ABG HCO3 ABG O2 Saturation ABG Base Excess ABG Hemoglobin Oxyhemoglobin Sodium Potassium Chloride Carbon Dioxide BUN Creatinine Glucose POC Glucose 182 H 194 H Lactic Acid Calcium Magnesium AST ALT Lactate Dehydrogenase Total Creatine Kinase C-Reactive Protein Total Protein Albumin Free T4 Urine WBC (Auto) Urine Total Protein Digoxin Salicylates Acetaminophen 12/25/19 12/25/19 12/25/19 05:46 11:35 11:38 WBC RBC Hgb Hct MCV MCH MCHC RDW Plt Count Lymph % (Auto) [place] % (Auto) Eos % (Auto) Baso % (Auto) Lymph # [place] # Eos # Baso # Seg Neutrophils % Monocytes % (Manual) Monocytes # (Manual) D-Dimer ABG pH 7.330 L ABG pO2 65.7 L ABG HCO3 32.6 H ABG O2 Saturation 92.5 L ABG Base Excess 5.3 H ABG Hemoglobin 10.4 L Oxyhemoglobin 90.0 L Sodium 166 H* Potassium 2.9 L* Chloride 124.5 H Carbon Dioxide BUN Creatinine Glucose 190 H POC Glucose 192 H Lactic Acid Calcium Magnesium AST ALT Lactate Dehydrogenase Total Creatine Kinase C-Reactive Protein Total Protein Albumin Free T4 Urine WBC (Auto) Urine Total Protein Digoxin Salicylates Acetaminophen 12/25/19 12/25/19 12/25/19 13:01 16:45 17:20 WBC RBC Hgb Hct MCV MCH MCHC RDW Plt Count Lymph % (Auto) [place] % (Auto) Eos % (Auto) Baso % (Auto) Lymph # [place] # Eos # Baso # Seg Neutrophils % Monocytes % (Manual) Monocytes # (Manual) D-Dimer ABG pH 7.296 L ABG pO2 101.5 H ABG HCO3 33.2 H ABG O2 Saturation ABG Base Excess 5.3 H ABG Hemoglobin 9.6 L Oxyhemoglobin 94.6 L Sodium 174 H* Potassium Chloride Carbon Dioxide BUN Creatinine Glucose POC Glucose Lactic Acid Calcium Magnesium AST ALT Lactate Dehydrogenase Total Creatine Kinase C-Reactive Protein Total Protein Albumin Free T4 Urine WBC (Auto) Urine Total Protein < 4 L Digoxin Salicylates Acetaminophen 12/25/19 12/25/19 12/26/19 17:48 18:50 00:43 WBC RBC Hgb Hct MCV MCH MCHC RDW Plt Count Lymph % (Auto) [place] % (Auto) Eos % (Auto) Baso % (Auto) Lymph # [place] # Eos # Baso # Seg Neutrophils % Monocytes % (Manual) Monocytes # (Manual) D-Dimer ABG pH ABG pO2 ABG HCO3 ABG O2 Saturation ABG Base Excess ABG Hemoglobin Oxyhemoglobin Sodium 166 H* 164 H* Potassium Chloride 127.3 H Carbon Dioxide BUN Creatinine Glucose 220 H POC Glucose 252 H Lactic Acid Calcium Magnesium AST ALT Lactate Dehydrogenase Total Creatine Kinase C-Reactive Protein Total Protein Albumin Free T4 Urine WBC (Auto) Urine Total Protein Digoxin Salicylates Acetaminophen 12/26/19 12/26/19 12/26/19 05:31 08:07 08:07 WBC 4.3 L RBC Hgb 9.6 L Hct 32.1 L MCV MCH 26 L MCHC 30 L RDW 20.5 H Plt Count Lymph % (Auto) [place] % (Auto) Eos % (Auto) Baso % (Auto) Lymph # [place] # Eos # Baso # Seg Neutrophils % Monocytes % (Manual) Monocytes # (Manual) D-Dimer ABG pH ABG pO2 ABG HCO3 ABG O2 Saturation ABG Base Excess ABG Hemoglobin Oxyhemoglobin Sodium 162 H* Potassium Chloride 122.1 H Carbon Dioxide BUN Creatinine Glucose 247 H POC Glucose 187 H Lactic Acid Calcium Magnesium AST ALT Lactate Dehydrogenase Total Creatine Kinase C-Reactive Protein Total Protein Albumin Free T4 Urine WBC (Auto) Urine Total Protein Digoxin Salicylates Acetaminophen 12/26/19 12/26/19 12/26/19 08:07 12:20 16:25 WBC RBC Hgb Hct MCV MCH MCHC RDW Plt Count Lymph % (Auto) [place] % (Auto) Eos % (Auto) Baso % (Auto) Lymph # [place] # Eos # Baso # Seg Neutrophils % Monocytes % (Manual) Monocytes # (Manual) D-Dimer ABG pH 7.290 L ABG pO2 73.2 L ABG HCO3 33.2 H ABG O2 Saturation 94.9 L ABG Base Excess 5.2 H ABG Hemoglobin 10.0 L Oxyhemoglobin 92.5 L Sodium 159 H Potassium Chloride Carbon Dioxide BUN Creatinine Glucose POC Glucose 234 H Lactic Acid Calcium Magnesium AST ALT Lactate Dehydrogenase Total Creatine Kinase C-Reactive Protein Total Protein Albumin Free T4 Urine WBC (Auto) Urine Total Protein Digoxin Salicylates Acetaminophen 12/26/19 12/26/19 12/26/19 17:33 22:35 23:30 WBC RBC Hgb Hct MCV MCH MCHC RDW Plt Count Lymph % (Auto) [place] % (Auto) Eos % (Auto) Baso % (Auto) Lymph # [place] # Eos # Baso # Seg Neutrophils % Monocytes % (Manual) Monocytes # (Manual) D-Dimer ABG pH ABG pO2 ABG HCO3 ABG O2 Saturation ABG Base Excess ABG Hemoglobin Oxyhemoglobin Sodium Potassium Chloride Carbon Dioxide BUN Creatinine Glucose POC Glucose 244 H 208 H 287 H Lactic Acid Calcium Magnesium AST ALT Lactate Dehydrogenase Total Creatine Kinase C-Reactive Protein Total Protein Albumin Free T4 Urine WBC (Auto) Urine Total Protein Digoxin Salicylates Acetaminophen 12/27/19 12/27/19 12/27/19 03:48 03:48 03:48 WBC RBC Hgb 10.1 L Hct 35.4 L MCV MCH 25 L MCHC 29 L RDW 20.1 H Plt Count Lymph % (Auto) [place] % (Auto) Eos % (Auto) Baso % (Auto) Lymph # [place] # Eos # Baso # Seg Neutrophils % Monocytes % (Manual) Monocytes # (Manual) D-Dimer ABG pH ABG pO2 ABG HCO3 ABG O2 Saturation ABG Base Excess ABG Hemoglobin Oxyhemoglobin Sodium 160 H Potassium Chloride 118.8 H Carbon Dioxide 33 H BUN Creatinine Glucose 217 H POC Glucose Lactic Acid Calcium Magnesium 2.70 H AST ALT Lactate Dehydrogenase Total Creatine Kinase C-Reactive Protein Total Protein Albumin Free T4 Urine WBC (Auto) Urine Total Protein Digoxin Salicylates Acetaminophen 12/27/19 12/27/19 12/27/19 05:50 11:58 16:05 WBC RBC Hgb Hct MCV MCH MCHC RDW Plt Count Lymph % (Auto) [place] % (Auto) Eos % (Auto) Baso % (Auto) Lymph # [place] # Eos # Baso # Seg Neutrophils % Monocytes % (Manual) Monocytes # (Manual) D-Dimer ABG pH 7.180 L* ABG pO2 73.6 L ABG HCO3 34.8 H ABG O2 Saturation 92.7 L ABG Base Excess 3.8 H ABG Hemoglobin 12.0 L Oxyhemoglobin 90.2 L Sodium Potassium Chloride Carbon Dioxide BUN Creatinine Glucose POC Glucose 224 H 218 H Lactic Acid Calcium Magnesium AST ALT Lactate Dehydrogenase Total Creatine Kinase C-Reactive Protein Total Protein Albumin Free T4 Urine WBC (Auto) Urine Total Protein Digoxin Salicylates Acetaminophen 12/27/19 12/27/19 12/27/19 18:05 19:50 21:53 WBC RBC Hgb Hct MCV MCH MCHC RDW Plt Count Lymph % (Auto) [place] % (Auto) Eos % (Auto) Baso % (Auto) Lymph # [place] # Eos # Baso # Seg Neutrophils % Monocytes % (Manual) Monocytes # (Manual) D-Dimer ABG pH 7.328 L ABG pO2 49.9 L ABG HCO3 33.3 H ABG O2 Saturation 87.1 L ABG Base Excess 5.7 H ABG Hemoglobin 11.2 L Oxyhemoglobin 84.8 L Sodium Potassium Chloride Carbon Dioxide BUN Creatinine Glucose POC Glucose 214 H 178 H Lactic Acid Calcium Magnesium AST ALT Lactate Dehydrogenase Total Creatine Kinase C-Reactive Protein Total Protein Albumin Free T4 Urine WBC (Auto) Urine Total Protein Digoxin Salicylates Acetaminophen 12/28/19 12/28/19 12/28/19 00:42 04:37 04:37 WBC RBC Hgb 9.8 L Hct 33.5 L MCV MCH 25 L MCHC 29 L RDW 21.1 H Plt Count Lymph % (Auto) [place] % (Auto) Eos % (Auto) Baso % (Auto) Lymph # [place] # Eos # Baso # Seg Neutrophils % Monocytes % (Manual) Monocytes # (Manual) D-Dimer ABG pH ABG pO2 ABG HCO3 ABG O2 Saturation ABG Base Excess ABG Hemoglobin Oxyhemoglobin Sodium 157 H Potassium 3.4 L Chloride 117.5 H Carbon Dioxide BUN Creatinine Glucose 193 H POC Glucose 157 H Lactic Acid Calcium Magnesium AST ALT Lactate Dehydrogenase Total Creatine Kinase C-Reactive Protein Total Protein Albumin Free T4 Urine WBC (Auto) Urine Total Protein Digoxin Salicylates Acetaminophen 12/28/19 12/28/19 12/28/19 04:52 05:19 12:05 WBC RBC Hgb Hct MCV MCH MCHC RDW Plt Count Lymph % (Auto) [place] % (Auto) Eos % (Auto) Baso % (Auto) Lymph # [place] # Eos # Baso # Seg Neutrophils % Monocytes % (Manual) Monocytes # (Manual) D-Dimer ABG pH ABG pO2 51.7 L ABG HCO3 28.7 H ABG O2 Saturation 89.9 L ABG Base Excess 4.1 H ABG Hemoglobin 9.7 L Oxyhemoglobin 87.7 L Sodium Potassium Chloride Carbon Dioxide BUN Creatinine Glucose POC Glucose 202 H 248 H Lactic Acid Calcium Magnesium AST ALT Lactate Dehydrogenase Total Creatine Kinase C-Reactive Protein Total Protein Albumin Free T4 Urine WBC (Auto) Urine Total Protein Digoxin Salicylates Acetaminophen 12/28/19 12/28/19 12/28/19 18:11 21:15 23:22 WBC RBC Hgb Hct MCV MCH MCHC RDW Plt Count Lymph % (Auto) [place] % (Auto) Eos % (Auto) Baso % (Auto) Lymph # [place] # Eos # Baso # Seg Neutrophils % Monocytes % (Manual) Monocytes # (Manual) D-Dimer ABG pH ABG pO2 ABG HCO3 ABG O2 Saturation ABG Base Excess ABG Hemoglobin Oxyhemoglobin Sodium Potassium Chloride Carbon Dioxide BUN Creatinine Glucose POC Glucose 226 H 217 H 227 H Lactic Acid Calcium Magnesium AST ALT Lactate Dehydrogenase Total Creatine Kinase C-Reactive Protein Total Protein Albumin Free T4 Urine WBC (Auto) Urine Total Protein Digoxin Salicylates Acetaminophen 12/29/19 12/29/19 12/29/19 04:09 04:59 04:59 WBC 11.1 H RBC Hgb 9.3 L Hct 31.1 L MCV 81 L MCH 24 L MCHC 30 L RDW 19.9 H Plt Count Lymph % (Auto) [place] % (Auto) Eos % (Auto) Baso % (Auto) Lymph # [place] # Eos # Baso # Seg Neutrophils % Monocytes % (Manual) Monocytes # (Manual) D-Dimer ABG pH 7.473 H ABG pO2 126.1 H ABG HCO3 29.2 H ABG O2 Saturation ABG Base Excess 5.1 H ABG Hemoglobin 8.4 L Oxyhemoglobin Sodium 157 H Potassium 3.2 L Chloride 118.2 H Carbon Dioxide BUN Creatinine 1.7 H Glucose 229 H POC Glucose Lactic Acid Calcium Magnesium AST ALT Lactate Dehydrogenase Total Creatine Kinase C-Reactive Protein Total Protein Albumin Free T4 Urine WBC (Auto) Urine Total Protein Digoxin Salicylates Acetaminophen 06/12/29/19 12/29/19 05:15 12:13 17:59 WBC RBC Hgb Hct MCV MCH MCHC RDW Plt Count Lymph % (Auto) [place] % (Auto) Eos % (Auto) Baso % (Auto) Lymph # [place] # Eos # Baso # Seg Neutrophils % Monocytes % (Manual) Monocytes # (Manual) D-Dimer ABG pH ABG pO2 ABG HCO3 ABG O2 Saturation ABG Base Excess ABG Hemoglobin Oxyhemoglobin Sodium Potassium Chloride Carbon Dioxide BUN Creatinine Glucose POC Glucose 221 H 392 H 365 H Lactic Acid Calcium Magnesium AST ALT Lactate Dehydrogenase Total Creatine Kinase C-Reactive Protein Total Protein Albumin Free T4 Urine WBC (Auto) Urine Total Protein Digoxin Salicylates Acetaminophen 12/29/19 12/29/19 12/30/19 20:25 23:38 04:45 WBC RBC Hgb Hct MCV MCH MCHC RDW Plt Count Lymph % (Auto) [place] % (Auto) Eos % (Auto) Baso % (Auto) Lymph # [place] # Eos # Baso # Seg Neutrophils % Monocytes % (Manual) Monocytes # (Manual) D-Dimer ABG pH 7.261 L 7.343 L ABG pO2 60.3 L 54.3 L ABG HCO3 32.1 H 30.9 H ABG O2 Saturation 87.6 L 88.3 L ABG Base Excess 3.7 H 4.0 H ABG Hemoglobin 9.7 L 11.6 L Oxyhemoglobin 85.2 L 86.0 L Sodium Potassium Chloride Carbon Dioxide BUN Creatinine Glucose POC Glucose 402 H Lactic Acid Calcium Magnesium AST ALT Lactate Dehydrogenase Total Creatine Kinase C-Reactive Protein Total Protein Albumin Free T4 Urine WBC (Auto) Urine Total Protein Digoxin Salicylates Acetaminophen 12/30/19 12/30/19 12/30/19 05:06 05:06 05:06 WBC 11.7 H RBC Hgb 9.4 L Hct 32.4 L MCV 83 L MCH 24 L MCHC 29 L RDW 20.2 H Plt Count Lymph % (Auto) [place] % (Auto) Eos % (Auto) Baso % (Auto) Lymph # [place] # Eos # Baso # Seg Neutrophils % Monocytes % (Manual) Monocytes # (Manual) D-Dimer ABG pH ABG pO2 ABG HCO3 ABG O2 Saturation ABG Base Excess ABG Hemoglobin Oxyhemoglobin Sodium 159 H Potassium 3.2 L Chloride 120.1 H Carbon Dioxide 31 H BUN Creatinine 1.9 H Glucose 404 H POC Glucose Lactic Acid Calcium Magnesium 2.60 H AST ALT Lactate Dehydrogenase Total Creatine Kinase C-Reactive Protein Total Protein Albumin Free T4 Urine WBC (Auto) Urine Total Protein Digoxin Salicylates Acetaminophen 12/30/19 12/30/19 12/30/19 06:26 12:29 13:44 WBC RBC Hgb Hct MCV MCH MCHC RDW Plt Count Lymph % (Auto) [place] % (Auto) Eos % (Auto) Baso % (Auto) Lymph # [place] # Eos # Baso # Seg Neutrophils % Monocytes % (Manual) Monocytes # (Manual) D-Dimer ABG pH ABG pO2 ABG HCO3 ABG O2 Saturation ABG Base Excess ABG Hemoglobin Oxyhemoglobin Sodium Potassium Chloride Carbon Dioxide BUN Creatinine Glucose POC Glucose 399 H 469 H > 500 H Lactic Acid Calcium Magnesium AST ALT Lactate Dehydrogenase Total Creatine Kinase C-Reactive Protein Total Protein Albumin Free T4 Urine WBC (Auto) Urine Total Protein Digoxin Salicylates Acetaminophen 12/30/19 12/30/19 12/30/19 13:51 16:32 18:05 WBC RBC Hgb Hct MCV MCH MCHC RDW Plt Count Lymph % (Auto) [place] % (Auto) Eos % (Auto) Baso % (Auto) Lymph # [place] # Eos # Baso # Seg Neutrophils % Monocytes % (Manual) Monocytes # (Manual) D-Dimer ABG pH ABG pO2 ABG HCO3 ABG O2 Saturation ABG Base Excess ABG Hemoglobin Oxyhemoglobin Sodium Potassium Chloride Carbon Dioxide BUN Creatinine Glucose POC Glucose > 500 H 445 H 429 H Lactic Acid Calcium Magnesium AST ALT Lactate Dehydrogenase Total Creatine Kinase C-Reactive Protein Total Protein Albumin Free T4 Urine WBC (Auto) Urine Total Protein Digoxin Salicylates Acetaminophen 12/30/19 12/30/19 12/31/19 21:42 Unknown 00:00 WBC RBC Hgb Hct MCV MCH MCHC RDW Plt Count Lymph % (Auto) [place] % (Auto) Eos % (Auto) Baso % (Auto) Lymph # [place] # Eos # Baso # Seg Neutrophils % Monocytes % (Manual) Monocytes # (Manual) D-Dimer ABG pH ABG pO2 ABG HCO3 ABG O2 Saturation ABG Base Excess ABG Hemoglobin Oxyhemoglobin Sodium Potassium Chloride Carbon Dioxide BUN Creatinine Glucose 498 H POC Glucose 371 H 452 H Lactic Acid Calcium Magnesium AST ALT Lactate Dehydrogenase Total Creatine Kinase C-Reactive Protein Total Protein Albumin Free T4 Urine WBC (Auto) Urine Total Protein Digoxin Salicylates Acetaminophen 12/31/19 12/31/19 12/31/19 04:31 05:42 08:01 WBC RBC Hgb Hct MCV MCH MCHC RDW Plt Count Lymph % (Auto) [place] % (Auto) Eos % (Auto) Baso % (Auto) Lymph # [place] # Eos # Baso # Seg Neutrophils % Monocytes % (Manual) Monocytes # (Manual) D-Dimer ABG pH 7.251 L ABG pO2 62.4 L ABG HCO3 31.1 H ABG O2 Saturation 88.7 L ABG Base Excess ABG Hemoglobin 8.7 L Oxyhemoglobin 86.4 L Sodium Potassium Chloride Carbon Dioxide BUN Creatinine Glucose POC Glucose 443 H 443 H Lactic Acid Calcium Magnesium AST ALT Lactate Dehydrogenase Total Creatine Kinase C-Reactive Protein Total Protein Albumin Free T4 Urine WBC (Auto) Urine Total Protein Digoxin Salicylates Acetaminophen 12/31/19 12/31/19 12/31/19 09:08 10:00 11:50 WBC RBC Hgb Hct MCV MCH MCHC RDW Plt Count Lymph % (Auto) [place] % (Auto) Eos % (Auto) Baso % (Auto) Lymph # [place] # Eos # Baso # Seg Neutrophils % Monocytes % (Manual) Monocytes # (Manual) D-Dimer ABG pH 7.325 L ABG pO2 97.2 H ABG HCO3 30.1 H ABG O2 Saturation ABG Base Excess 3.4 H ABG Hemoglobin 8.3 L Oxyhemoglobin 94.7 L Sodium 151 H D Potassium 3.2 L Chloride 113.0 H Carbon Dioxide BUN 23 H Creatinine 1.8 H Glucose 373 H POC Glucose 465 H Lactic Acid Calcium Magnesium AST ALT Lactate Dehydrogenase Total Creatine Kinase C-Reactive Protein Total Protein Albumin Free T4 Urine WBC (Auto) Urine Total Protein Digoxin Salicylates Acetaminophen 12/31/19 12/31/19 12/31/19 12:25 13:33 18:30 WBC RBC Hgb Hct MCV MCH MCHC RDW Plt Count Lymph % (Auto) [place] % (Auto) Eos % (Auto) Baso % (Auto) Lymph # [place] # Eos # Baso # Seg Neutrophils % Monocytes % (Manual) Monocytes # (Manual) D-Dimer ABG pH ABG pO2 ABG HCO3 ABG O2 Saturation ABG Base Excess ABG Hemoglobin Oxyhemoglobin Sodium Potassium Chloride Carbon Dioxide BUN Creatinine Glucose POC Glucose 379 H 311 H 349 H Lactic Acid Calcium Magnesium AST ALT Lactate Dehydrogenase Total Creatine Kinase C-Reactive Protein Total Protein Albumin Free T4 Urine WBC (Auto) Urine Total Protein Digoxin Salicylates Acetaminophen 12/31/19 12/31/19 01/01/20 22:29 23:30 02:58 WBC RBC Hgb Hct MCV MCH MCHC RDW Plt Count Lymph % (Auto) [place] % (Auto) Eos % (Auto) Baso % (Auto) Lymph # [place] # Eos # Baso # Seg Neutrophils % Monocytes % (Manual) Monocytes # (Manual) D-Dimer ABG pH ABG pO2 ABG HCO3 ABG O2 Saturation ABG Base Excess ABG Hemoglobin Oxyhemoglobin Sodium Potassium Chloride Carbon Dioxide BUN Creatinine Glucose POC Glucose 256 H 266 H 248 H Lactic Acid Calcium Magnesium AST ALT Lactate Dehydrogenase Total Creatine Kinase C-Reactive Protein Total Protein Albumin Free T4 Urine WBC (Auto) Urine Total Protein Digoxin Salicylates Acetaminophen 01/01/20 01/01/20 01/01/20 04:19 06:56 10:52 WBC RBC Hgb Hct MCV MCH MCHC RDW Plt Count Lymph % (Auto) [place] % (Auto) Eos % (Auto) Baso % (Auto) Lymph # [place] # Eos # Baso # Seg Neutrophils % Monocytes % (Manual) Monocytes # (Manual) D-Dimer ABG pH ABG pO2 90.7 H ABG HCO3 29.1 H ABG O2 Saturation ABG Base Excess 3.8 H ABG Hemoglobin 8.1 L Oxyhemoglobin 94.5 L Sodium Potassium Chloride Carbon Dioxide BUN Creatinine Glucose POC Glucose 303 H 244 H Lactic Acid Calcium Magnesium AST ALT Lactate Dehydrogenase Total Creatine Kinase C-Reactive Protein Total Protein Albumin Free T4 Urine WBC (Auto) Urine Total Protein Digoxin Salicylates Acetaminophen 01/01/20 01/01/20 01/01/20 13:39 14:49 18:42 WBC RBC Hgb Hct MCV MCH MCHC RDW Plt Count Lymph % (Auto) [place] % (Auto) Eos % (Auto) Baso % (Auto) Lymph # [place] # Eos # Baso # Seg Neutrophils % Monocytes % (Manual) Monocytes # (Manual) D-Dimer ABG pH ABG pO2 ABG HCO3 ABG O2 Saturation ABG Base Excess ABG Hemoglobin Oxyhemoglobin Sodium 147 H Potassium Chloride 107.1 H Carbon Dioxide BUN 28 H Creatinine Glucose 207 H POC Glucose 263 H 188 H Lactic Acid Calcium Magnesium AST ALT Lactate Dehydrogenase Total Creatine Kinase C-Reactive Protein Total Protein Albumin Free T4 Urine WBC (Auto) Urine Total Protein Digoxin Salicylates Acetaminophen 01/02/20 01/02/20 01/02/20 02:22 03:58 05:00 WBC RBC 3.31 L Hgb 8.0 L Hct 26.9 L MCV 81 L MCH 24 L MCHC 30 L RDW 19.4 H Plt Count Lymph % (Auto) [place] % (Auto) 9.4 H Eos % (Auto) 11.2 H Baso % (Auto) Lymph # [place] # Eos # 0.8 H Baso # Seg Neutrophils % Monocytes % (Manual) Monocytes # (Manual) D-Dimer ABG pH ABG pO2 63.0 L ABG HCO3 31.6 H ABG O2 Saturation 91.8 L ABG Base Excess 5.5 H ABG Hemoglobin 8.6 L Oxyhemoglobin 89.6 L Sodium Potassium Chloride Carbon Dioxide BUN Creatinine Glucose POC Glucose 196 H Lactic Acid Calcium Magnesium AST ALT Lactate Dehydrogenase Total Creatine Kinase C-Reactive Protein Total Protein Albumin Free T4 Urine WBC (Auto) Urine Total Protein Digoxin Salicylates Acetaminophen 01/02/20 01/02/20 01/02/20 05:40 10:26 13:57 WBC RBC Hgb Hct MCV MCH MCHC RDW Plt Count Lymph % (Auto) [place] % (Auto) Eos % (Auto) Baso % (Auto) Lymph # [place] # Eos # Baso # Seg Neutrophils % Monocytes % (Manual) Monocytes # (Manual) D-Dimer ABG pH ABG pO2 ABG HCO3 ABG O2 Saturation ABG Base Excess ABG Hemoglobin Oxyhemoglobin Sodium Potassium Chloride Carbon Dioxide BUN Creatinine Glucose POC Glucose 189 H 157 H 178 H Lactic Acid Calcium Magnesium AST ALT Lactate Dehydrogenase Total Creatine Kinase C-Reactive Protein Total Protein Albumin Free T4 Urine WBC (Auto) Urine Total Protein Digoxin Salicylates Acetaminophen 01/02/20 01/03/20 01/03/20 21:27 03:12 05:26 WBC RBC Hgb Hct MCV MCH MCHC RDW Plt Count Lymph % (Auto) [place] % (Auto) Eos % (Auto) Baso % (Auto) Lymph # [place] # Eos # Baso # Seg Neutrophils % Monocytes % (Manual) Monocytes # (Manual) D-Dimer ABG pH 7.473 H ABG pO2 109.6 H ABG HCO3 30.4 H ABG O2 Saturation ABG Base Excess 6.2 H ABG Hemoglobin 9.9 L Oxyhemoglobin Sodium Potassium Chloride Carbon Dioxide BUN Creatinine Glucose POC Glucose 131 H 133 H Lactic Acid Calcium Magnesium AST ALT Lactate Dehydrogenase Total Creatine Kinase C-Reactive Protein Total Protein Albumin Free T4 Urine WBC (Auto) Urine Total Protein Digoxin Salicylates Acetaminophen 01/03/20 01/03/20 01/03/20 05:40 05:40 15:01 WBC RBC 3.45 L Hgb 8.3 L Hct 27.3 L MCV 79 L MCH 24 L MCHC 30 L RDW 19.3 H Plt Count Lymph % (Auto) [place] % (Auto) Eos % (Auto) Baso % (Auto) Lymph # [place] # Eos # Baso # Seg Neutrophils % Monocytes % (Manual) Monocytes # (Manual) D-Dimer ABG pH ABG pO2 ABG HCO3 ABG O2 Saturation ABG Base Excess ABG Hemoglobin Oxyhemoglobin Sodium 151 H Potassium Chloride 111.8 H Carbon Dioxide 31 H BUN 37 H Creatinine 1.8 H Glucose 187 H POC Glucose 164 H Lactic Acid Calcium Magnesium AST ALT Lactate Dehydrogenase Total Creatine Kinase C-Reactive Protein Total Protein Albumin Free T4 Urine WBC (Auto) Urine Total Protein Digoxin Salicylates Acetaminophen 01/03/20 01/03/20 01/04/20 18:15 22:45 02:11 WBC RBC Hgb Hct MCV MCH MCHC RDW Plt Count Lymph % (Auto) [place] % (Auto) Eos % (Auto) Baso % (Auto) Lymph # [place] # Eos # Baso # Seg Neutrophils % Monocytes % (Manual) Monocytes # (Manual) D-Dimer ABG pH ABG pO2 ABG HCO3 ABG O2 Saturation ABG Base Excess ABG Hemoglobin Oxyhemoglobin Sodium Potassium Chloride Carbon Dioxide BUN Creatinine Glucose POC Glucose 184 H 176 H 206 H Lactic Acid Calcium Magnesium AST ALT Lactate Dehydrogenase Total Creatine Kinase C-Reactive Protein Total Protein Albumin Free T4 Urine WBC (Auto) Urine Total Protein Digoxin Salicylates Acetaminophen 01/04/20 01/04/20 01/04/20 03:16 05:15 10:53 WBC RBC Hgb Hct MCV MCH MCHC RDW Plt Count Lymph % (Auto) [place] % (Auto) Eos % (Auto) Baso % (Auto) Lymph # [place] # Eos # Baso # Seg Neutrophils % Monocytes % (Manual) Monocytes # (Manual) D-Dimer ABG pH 7.282 L ABG pO2 73.2 L ABG HCO3 ABG O2 Saturation 94.5 L ABG Base Excess -6.4 L ABG Hemoglobin 10.9 L Oxyhemoglobin 92.1 L Sodium Potassium Chloride Carbon Dioxide BUN Creatinine Glucose POC Glucose 139 H 224 H Lactic Acid Calcium Magnesium AST ALT Lactate Dehydrogenase Total Creatine Kinase C-Reactive Protein Total Protein Albumin Free T4 Urine WBC (Auto) Urine Total Protein Digoxin Salicylates Acetaminophen 01/04/20 01/04/20 01/04/20 15:47 18:05 22:07 WBC RBC Hgb Hct MCV MCH MCHC RDW Plt Count Lymph % (Auto) [place] % (Auto) Eos % (Auto) Baso % (Auto) Lymph # [place] # Eos # Baso # Seg Neutrophils % Monocytes % (Manual) Monocytes # (Manual) D-Dimer ABG pH ABG pO2 ABG HCO3 ABG O2 Saturation ABG Base Excess ABG Hemoglobin Oxyhemoglobin Sodium Potassium Chloride Carbon Dioxide BUN Creatinine Glucose POC Glucose 135 H 117 H 108 H Lactic Acid Calcium Magnesium AST ALT Lactate Dehydrogenase Total Creatine Kinase C-Reactive Protein Total Protein Albumin Free T4 Urine WBC (Auto) Urine Total Protein Digoxin Salicylates Acetaminophen 01/04/20 01/04/20 01/05/20 Unknown Unknown 02:04 WBC RBC 3.46 L Hgb 8.2 L Hct 27.8 L MCV 80 L MCH 24 L MCHC 30 L RDW 19.7 H Plt Count Lymph % (Auto) [place] % (Auto) Eos % (Auto) Baso % (Auto) Lymph # [place] # Eos # Baso # Seg Neutrophils % Monocytes % (Manual) Monocytes # (Manual) D-Dimer ABG pH ABG pO2 ABG HCO3 ABG O2 Saturation ABG Base Excess ABG Hemoglobin Oxyhemoglobin Sodium 150 H Potassium Chloride 110 H Carbon Dioxide 32 H BUN 32 H Creatinine Glucose 309 H POC Glucose 140 H Lactic Acid Calcium Magnesium AST ALT Lactate Dehydrogenase Total Creatine Kinase C-Reactive Protein Total Protein Albumin Free T4 Urine WBC (Auto) Urine Total Protein Digoxin Salicylates Acetaminophen 01/05/20 01/05/20 01/05/20 03:31 03:36 03:36 WBC RBC 3.46 L Hgb 8.4 L Hct 26.9 L MCV 78 L MCH 24 L MCHC 31 L RDW 19.0 H Plt Count Lymph % (Auto) [place] % (Auto) Eos % (Auto) Baso % (Auto) Lymph # [place] # Eos # Baso # Seg Neutrophils % Monocytes % (Manual) Monocytes # (Manual) D-Dimer ABG pH 7.454 H ABG pO2 113.0 H ABG HCO3 30.5 H ABG O2 Saturation ABG Base Excess 6.0 H ABG Hemoglobin 8.5 L Oxyhemoglobin Sodium 150 H Potassium Chloride 110.3 H Carbon Dioxide BUN 30 H Creatinine Glucose 148 H POC Glucose Lactic Acid Calcium Magnesium AST ALT Lactate Dehydrogenase Total Creatine Kinase C-Reactive Protein Total Protein Albumin Free T4 Urine WBC (Auto) Urine Total Protein Digoxin Salicylates Acetaminophen 01/05/20 01/05/20 01/05/20 05:21 09:56 11:45 WBC RBC Hgb Hct MCV MCH MCHC RDW Plt Count Lymph % (Auto) [place] % (Auto) Eos % (Auto) Baso % (Auto) Lymph # [place] # Eos # Baso # Seg Neutrophils % Monocytes % (Manual) Monocytes # (Manual) D-Dimer ABG pH ABG pO2 ABG HCO3 ABG O2 Saturation ABG Base Excess ABG Hemoglobin Oxyhemoglobin Sodium Potassium Chloride Carbon Dioxide BUN Creatinine Glucose POC Glucose 142 H 129 H 174 H Lactic Acid Calcium Magnesium AST ALT Lactate Dehydrogenase Total Creatine Kinase C-Reactive Protein Total Protein Albumin Free T4 Urine WBC (Auto) Urine Total Protein Digoxin Salicylates Acetaminophen 01/05/20 01/05/20 01/05/20 13:30 14:00 17:41 WBC RBC Hgb Hct MCV MCH MCHC RDW Plt Count Lymph % (Auto) [place] % (Auto) Eos % (Auto) Baso % (Auto) Lymph # [place] # Eos # Baso # Seg Neutrophils % Monocytes % (Manual) Monocytes # (Manual) D-Dimer ABG pH ABG pO2 ABG HCO3 ABG O2 Saturation ABG Base Excess ABG Hemoglobin Oxyhemoglobin Sodium Potassium Chloride Carbon Dioxide BUN 26 H Creatinine 1.6 H Glucose 302 H POC Glucose 168 H 136 H Lactic Acid Calcium Magnesium AST ALT Lactate Dehydrogenase Total Creatine Kinase C-Reactive Protein Total Protein Albumin Free T4 Urine WBC (Auto) Urine Total Protein Digoxin Salicylates Acetaminophen 01/05/20 01/05/20 01/06/20 20:38 23:32 03:50 WBC RBC Hgb Hct MCV MCH MCHC RDW Plt Count Lymph % (Auto) [place] % (Auto) Eos % (Auto) Baso % (Auto) Lymph # [place] # Eos # Baso # Seg Neutrophils % Monocytes % (Manual) Monocytes # (Manual) D-Dimer ABG pH ABG pO2 76.2 L ABG HCO3 30.1 H ABG O2 Saturation ABG Base Excess 5.1 H ABG Hemoglobin 9.5 L Oxyhemoglobin 93.8 L Sodium Potassium Chloride Carbon Dioxide BUN Creatinine Glucose POC Glucose 124 H 163 H Lactic Acid Calcium Magnesium AST ALT Lactate Dehydrogenase Total Creatine Kinase C-Reactive Protein Total Protein Albumin Free T4 Urine WBC (Auto) Urine Total Protein Digoxin Salicylates Acetaminophen 01/06/20 01/06/20 01/06/20 04:09 04:58 04:58 WBC RBC Hgb 8.8 L Hct 28.7 L MCV 78 L MCH 24 L MCHC 31 L RDW 18.7 H Plt Count 522 H Lymph % (Auto) [place] % (Auto) Eos % (Auto) Baso % (Auto) Lymph # [place] # Eos # Baso # Seg Neutrophils % Monocytes % (Manual) Monocytes # (Manual) D-Dimer ABG pH ABG pO2 ABG HCO3 ABG O2 Saturation ABG Base Excess ABG Hemoglobin Oxyhemoglobin Sodium 150 H D Potassium Chloride 109.3 H Carbon Dioxide BUN 25 H Creatinine Glucose 55 L POC Glucose 65 L Lactic Acid Calcium Magnesium AST ALT Lactate Dehydrogenase Total Creatine Kinase C-Reactive Protein Total Protein Albumin Free T4 Urine WBC (Auto) Urine Total Protein Digoxin Salicylates Acetaminophen 01/06/20 01/06/20 01/06/20 05:01 14:10 17:49 WBC RBC Hgb Hct MCV MCH MCHC RDW Plt Count Lymph % (Auto) [place] % (Auto) Eos % (Auto) Baso % (Auto) Lymph # [place] # Eos # Baso # Seg Neutrophils % Monocytes % (Manual) Monocytes # (Manual) D-Dimer ABG pH ABG pO2 ABG HCO3 ABG O2 Saturation ABG Base Excess ABG Hemoglobin Oxyhemoglobin Sodium Potassium Chloride Carbon Dioxide BUN Creatinine Glucose POC Glucose 60 L 119 H 131 H Lactic Acid Calcium Magnesium AST ALT Lactate Dehydrogenase Total Creatine Kinase C-Reactive Protein Total Protein Albumin Free T4 Urine WBC (Auto) Urine Total Protein Digoxin Salicylates Acetaminophen 01/06/20 01/07/20 01/07/20 21:08 02:11 05:19 WBC RBC Hgb Hct MCV MCH MCHC RDW Plt Count Lymph % (Auto) [place] % (Auto) Eos % (Auto) Baso % (Auto) Lymph # [place] # Eos # Baso # Seg Neutrophils % Monocytes % (Manual) Monocytes # (Manual) D-Dimer ABG pH ABG pO2 ABG HCO3 ABG O2 Saturation ABG Base Excess ABG Hemoglobin Oxyhemoglobin Sodium Potassium Chloride Carbon Dioxide BUN Creatinine Glucose POC Glucose 136 H 209 H 182 H Lactic Acid Calcium Magnesium AST ALT Lactate Dehydrogenase Total Creatine Kinase C-Reactive Protein Total Protein Albumin Free T4 Urine WBC (Auto) Urine Total Protein Digoxin Salicylates Acetaminophen 01/07/20 01/07/20 01/07/20 11:40 11:52 13:49 WBC RBC Hgb Hct MCV MCH MCHC RDW Plt Count Lymph % (Auto) [place] % (Auto) Eos % (Auto) Baso % (Auto) Lymph # [place] # Eos # Baso # Seg Neutrophils % Monocytes % (Manual) Monocytes # (Manual) D-Dimer ABG pH ABG pO2 ABG HCO3 ABG O2 Saturation ABG Base Excess ABG Hemoglobin Oxyhemoglobin Sodium Potassium Chloride Carbon Dioxide BUN 21 H Creatinine Glucose 190 H POC Glucose 180 H 184 H Lactic Acid Calcium Magnesium AST ALT Lactate Dehydrogenase Total Creatine Kinase C-Reactive Protein Total Protein Albumin Free T4 Urine WBC (Auto) Urine Total Protein Digoxin Salicylates Acetaminophen 01/07/20 01/07/20 01/07/20 17:54 22:19 Unknown WBC RBC Hgb Hct MCV MCH MCHC RDW Plt Count Lymph % (Auto) [place] % (Auto) Eos % (Auto) Baso % (Auto) Lymph # [place] # Eos # Baso # Seg Neutrophils % Monocytes % (Manual) Monocytes # (Manual) D-Dimer ABG pH ABG pO2 ABG HCO3 28.9 H ABG O2 Saturation ABG Base Excess 4.0 H ABG Hemoglobin 11.0 L Oxyhemoglobin 94.2 L Sodium Potassium Chloride Carbon Dioxide BUN Creatinine Glucose POC Glucose 190 H 299 H Lactic Acid Calcium Magnesium AST ALT Lactate Dehydrogenase Total Creatine Kinase C-Reactive Protein Total Protein Albumin Free T4 Urine WBC (Auto) Urine Total Protein Digoxin Salicylates Acetaminophen 01/08/20 01/08/20 01/08/20 02:45 05:26 05:27 WBC RBC Hgb Hct MCV MCH MCHC RDW Plt Count Lymph % (Auto) [place] % (Auto) Eos % (Auto) Baso % (Auto) Lymph # [place] # Eos # Baso # Seg Neutrophils % Monocytes % (Manual) Monocytes # (Manual) D-Dimer ABG pH ABG pO2 67.8 L ABG HCO3 26.5 H ABG O2 Saturation 93.2 L ABG Base Excess ABG Hemoglobin 8.1 L Oxyhemoglobin 90.4 L Sodium Potassium Chloride Carbon Dioxide BUN Creatinine Glucose POC Glucose 245 H 346 H Lactic Acid Calcium Magnesium AST ALT Lactate Dehydrogenase Total Creatine Kinase C-Reactive Protein Total Protein Albumin Free T4 Urine WBC (Auto) Urine Total Protein Digoxin Salicylates Acetaminophen 01/08/20 01/08/20 01/08/20 08:03 08:03 10:33 WBC RBC 3.14 L Hgb 7.6 L Hct 24.3 L MCV 77 L MCH 24 L MCHC 31 L RDW 18.3 H Plt Count 509 H Lymph % (Auto) [place] % (Auto) Eos % (Auto) Baso % (Auto) Lymph # [place] # Eos # Baso # Seg Neutrophils % Monocytes % (Manual) Monocytes # (Manual) D-Dimer ABG pH ABG pO2 ABG HCO3 ABG O2 Saturation ABG Base Excess ABG Hemoglobin Oxyhemoglobin Sodium 132 L D Potassium Chloride 94.7 L Carbon Dioxide BUN 22 H Creatinine Glucose 284 H POC Glucose 275 H Lactic Acid Calcium Magnesium AST ALT Lactate Dehydrogenase Total Creatine Kinase C-Reactive Protein Total Protein Albumin Free T4 Urine WBC (Auto) Urine Total Protein Digoxin Salicylates Acetaminophen 01/08/20 01/08/20 01/08/20 13:34 17:24 21:49 WBC RBC Hgb Hct MCV MCH MCHC RDW Plt Count Lymph % (Auto) [place] % (Auto) Eos % (Auto) Baso % (Auto) Lymph # [place] # Eos # Baso # Seg Neutrophils % Monocytes % (Manual) Monocytes # (Manual) D-Dimer ABG pH ABG pO2 ABG HCO3 ABG O2 Saturation ABG Base Excess ABG Hemoglobin Oxyhemoglobin Sodium Potassium Chloride Carbon Dioxide BUN Creatinine Glucose POC Glucose 273 H 294 H 265 H Lactic Acid Calcium Magnesium AST ALT Lactate Dehydrogenase Total Creatine Kinase C-Reactive Protein Total Protein Albumin Free T4 Urine WBC (Auto) Urine Total Protein Digoxin Salicylates Acetaminophen 01/09/20 01/09/20 01/09/20 00:13 03:45 05:55 WBC RBC Hgb Hct MCV MCH MCHC RDW Plt Count Lymph % (Auto) [place] % (Auto) Eos % (Auto) Baso % (Auto) Lymph # [place] # Eos # Baso # Seg Neutrophils % Monocytes % (Manual) Monocytes # (Manual) D-Dimer ABG pH ABG pO2 ABG HCO3 ABG O2 Saturation ABG Base Excess ABG Hemoglobin Oxyhemoglobin Sodium Potassium Chloride Carbon Dioxide BUN Creatinine Glucose POC Glucose 251 H 346 H 300 H Lactic Acid Calcium Magnesium AST ALT Lactate Dehydrogenase Total Creatine Kinase C-Reactive Protein Total Protein Albumin Free T4 Urine WBC (Auto) Urine Total Protein Digoxin Salicylates Acetaminophen 01/09/20 01/09/20 01/09/20 08:15 09:31 12:04 WBC RBC Hgb Hct MCV MCH MCHC RDW Plt Count Lymph % (Auto) [place] % (Auto) Eos % (Auto) Baso % (Auto) Lymph # [place] # Eos # Baso # Seg Neutrophils % Monocytes % (Manual) Monocytes # (Manual) D-Dimer ABG pH ABG pO2 ABG HCO3 ABG O2 Saturation ABG Base Excess ABG Hemoglobin Oxyhemoglobin Sodium 134 L Potassium Chloride 97.6 L Carbon Dioxide BUN 25 H Creatinine Glucose 240 H POC Glucose 191 H 230 H Lactic Acid Calcium Magnesium AST ALT Lactate Dehydrogenase Total Creatine Kinase C-Reactive Protein Total Protein Albumin Free T4 Urine WBC (Auto) Urine Total Protein Digoxin Salicylates Acetaminophen 01/09/20 01/09/20 01/09/20 13:46 17:31 22:28 WBC RBC Hgb Hct MCV MCH MCHC RDW Plt Count Lymph % (Auto) [place] % (Auto) Eos % (Auto) Baso % (Auto) Lymph # [place] # Eos # Baso # Seg Neutrophils % Monocytes % (Manual) Monocytes # (Manual) D-Dimer ABG pH ABG pO2 ABG HCO3 ABG O2 Saturation ABG Base Excess ABG Hemoglobin Oxyhemoglobin Sodium Potassium Chloride Carbon Dioxide BUN Creatinine Glucose POC Glucose 211 H 260 H 223 H Lactic Acid Calcium Magnesium AST ALT Lactate Dehydrogenase Total Creatine Kinase C-Reactive Protein Total Protein Albumin Free T4 Urine WBC (Auto) Urine Total Protein Digoxin Salicylates Acetaminophen 01/10/20 01/10/20 01/10/20 02:16 04:20 05:55 WBC RBC Hgb Hct MCV MCH MCHC RDW Plt Count Lymph % (Auto) [place] % (Auto) Eos % (Auto) Baso % (Auto) Lymph # [place] # Eos # Baso # Seg Neutrophils % Monocytes % (Manual) Monocytes # (Manual) D-Dimer ABG pH ABG pO2 95.3 H ABG HCO3 27.8 H ABG O2 Saturation ABG Base Excess ABG Hemoglobin 8.3 L Oxyhemoglobin Sodium Potassium Chloride Carbon Dioxide BUN Creatinine Glucose POC Glucose 219 H 245 H Lactic Acid Calcium Magnesium AST ALT Lactate Dehydrogenase Total Creatine Kinase C-Reactive Protein Total Protein Albumin Free T4 Urine WBC (Auto) Urine Total Protein Digoxin Salicylates Acetaminophen 01/10/20 01/10/20 01/10/20 10:38 15:08 15:45 WBC RBC Hgb Hct MCV MCH MCHC RDW Plt Count Lymph % (Auto) [place] % (Auto) Eos % (Auto) Baso % (Auto) Lymph # [place] # Eos # Baso # Seg Neutrophils % Monocytes % (Manual) Monocytes # (Manual) D-Dimer ABG pH ABG pO2 ABG HCO3 ABG O2 Saturation ABG Base Excess ABG Hemoglobin Oxyhemoglobin Sodium Potassium Chloride Carbon Dioxide BUN Creatinine Glucose POC Glucose 268 H 246 H 238 H Lactic Acid Calcium Magnesium AST ALT Lactate Dehydrogenase Total Creatine Kinase C-Reactive Protein Total Protein Albumin Free T4 Urine WBC (Auto) Urine Total Protein Digoxin Salicylates Acetaminophen 01/10/20 01/10/20 01/10/20 18:00 21:09 22:48 WBC RBC Hgb Hct MCV MCH MCHC RDW Plt Count Lymph % (Auto) [place] % (Auto) Eos % (Auto) Baso % (Auto) Lymph # [place] # Eos # Baso # Seg Neutrophils % Monocytes % (Manual) Monocytes # (Manual) D-Dimer ABG pH ABG pO2 ABG HCO3 ABG O2 Saturation ABG Base Excess ABG Hemoglobin Oxyhemoglobin Sodium Potassium Chloride Carbon Dioxide BUN Creatinine Glucose POC Glucose 187 H 176 H 189 H Lactic Acid Calcium Magnesium AST ALT Lactate Dehydrogenase Total Creatine Kinase C-Reactive Protein Total Protein Albumin Free T4 Urine WBC (Auto) Urine Total Protein Digoxin Salicylates Acetaminophen 01/11/20 01/11/20 01/11/20 03:07 05:45 05:45 WBC RBC 3.15 L Hgb 7.7 L Hct 24.9 L MCV 79 L MCH 24 L MCHC 31 L RDW 18.7 H Plt Count 667 H Lymph % (Auto) [place] % (Auto) Eos % (Auto) Baso % (Auto) Lymph # [place] # Eos # Baso # Seg Neutrophils % Monocytes % (Manual) Monocytes # (Manual) D-Dimer ABG pH ABG pO2 ABG HCO3 ABG O2 Saturation ABG Base Excess ABG Hemoglobin Oxyhemoglobin Sodium 148 H D Potassium 5.1 H Chloride 111.9 H Carbon Dioxide BUN 26 H Creatinine Glucose 236 H POC Glucose 253 H Lactic Acid Calcium Magnesium AST 67 H ALT Lactate Dehydrogenase Total Creatine Kinase C-Reactive Protein Total Protein 5.9 L Albumin 2.8 L Free T4 Urine WBC (Auto) Urine Total Protein Digoxin Salicylates Acetaminophen 01/11/20 01/11/20 01/11/20 06:10 12:59 14:22 WBC RBC Hgb Hct MCV MCH MCHC RDW Plt Count Lymph % (Auto) [place] % (Auto) Eos % (Auto) Baso % (Auto) Lymph # [place] # Eos # Baso # Seg Neutrophils % Monocytes % (Manual) Monocytes # (Manual) D-Dimer ABG pH ABG pO2 ABG HCO3 ABG O2 Saturation ABG Base Excess ABG Hemoglobin Oxyhemoglobin Sodium Potassium Chloride Carbon Dioxide BUN Creatinine Glucose POC Glucose 261 H 234 H 220 H Lactic Acid Calcium Magnesium AST ALT Lactate Dehydrogenase Total Creatine Kinase C-Reactive Protein Total Protein Albumin Free T4 Urine WBC (Auto) Urine Total Protein Digoxin Salicylates Acetaminophen 01/11/20 01/11/20 01/12/20 17:18 21:20 00:45 WBC RBC Hgb Hct MCV MCH MCHC RDW Plt Count Lymph % (Auto) [place] % (Auto) Eos % (Auto) Baso % (Auto) Lymph # [place] # Eos # Baso # Seg Neutrophils % Monocytes % (Manual) Monocytes # (Manual) D-Dimer ABG pH ABG pO2 ABG HCO3 ABG O2 Saturation ABG Base Excess ABG Hemoglobin Oxyhemoglobin Sodium Potassium Chloride Carbon Dioxide BUN Creatinine Glucose POC Glucose 264 H 299 H 289 H Lactic Acid Calcium Magnesium AST ALT Lactate Dehydrogenase Total Creatine Kinase C-Reactive Protein Total Protein Albumin Free T4 Urine WBC (Auto) Urine Total Protein Digoxin Salicylates Acetaminophen 01/12/20 01/12/20 01/12/20 04:35 06:10 11:29 WBC RBC Hgb Hct MCV MCH MCHC RDW Plt Count Lymph % (Auto) [place] % (Auto) Eos % (Auto) Baso % (Auto) Lymph # [place] # Eos # Baso # Seg Neutrophils % Monocytes % (Manual) Monocytes # (Manual) D-Dimer ABG pH ABG pO2 ABG HCO3 ABG O2 Saturation ABG Base Excess ABG Hemoglobin Oxyhemoglobin Sodium Potassium Chloride Carbon Dioxide BUN Creatinine Glucose POC Glucose 187 H 194 H 213 H Lactic Acid Calcium Magnesium AST ALT Lactate Dehydrogenase Total Creatine Kinase C-Reactive Protein Total Protein Albumin Free T4 Urine WBC (Auto) Urine Total Protein Digoxin Salicylates Acetaminophen 01/12/20 01/12/20 01/12/20 14:40 18:50 21:34 WBC RBC Hgb Hct MCV MCH MCHC RDW Plt Count Lymph % (Auto) [place] % (Auto) Eos % (Auto) Baso % (Auto) Lymph # [place] # Eos # Baso # Seg Neutrophils % Monocytes % (Manual) Monocytes # (Manual) D-Dimer ABG pH ABG pO2 ABG HCO3 ABG O2 Saturation ABG Base Excess ABG Hemoglobin Oxyhemoglobin Sodium Potassium Chloride Carbon Dioxide BUN Creatinine Glucose POC Glucose 288 H 292 H 147 H Lactic Acid Calcium Magnesium AST ALT Lactate Dehydrogenase Total Creatine Kinase C-Reactive Protein Total Protein Albumin Free T4 Urine WBC (Auto) Urine Total Protein Digoxin Salicylates Acetaminophen 01/12/20 01/13/20 01/13/20 23:16 04:00 05:27 WBC RBC Hgb Hct MCV MCH MCHC RDW Plt Count Lymph % (Auto) [place] % (Auto) Eos % (Auto) Baso % (Auto) Lymph # [place] # Eos # Baso # Seg Neutrophils % Monocytes % (Manual) Monocytes # (Manual) D-Dimer ABG pH ABG pO2 ABG HCO3 ABG O2 Saturation ABG Base Excess ABG Hemoglobin Oxyhemoglobin Sodium 149 H Potassium Chloride 112.4 H Carbon Dioxide 32 H BUN 28 H Creatinine Glucose 174 H POC Glucose 122 H 143 H Lactic Acid Calcium Magnesium AST ALT Lactate Dehydrogenase Total Creatine Kinase C-Reactive Protein Total Protein Albumin Free T4 Urine WBC (Auto) Urine Total Protein Digoxin Salicylates Acetaminophen 01/13/20 01/13/20 01/13/20 10:24 13:34 15:10 WBC RBC Hgb Hct MCV MCH MCHC RDW Plt Count Lymph % (Auto) [place] % (Auto) Eos % (Auto) Baso % (Auto) Lymph # [place] # Eos # Baso # Seg Neutrophils % Monocytes % (Manual) Monocytes # (Manual) D-Dimer ABG pH 7.223 L ABG pO2 ABG HCO3 33.1 H ABG O2 Saturation 94.7 L ABG Base Excess 4.2 H ABG Hemoglobin 8.5 L Oxyhemoglobin 92.1 L Sodium Potassium Chloride Carbon Dioxide BUN Creatinine Glucose POC Glucose 172 H 151 H Lactic Acid Calcium Magnesium AST ALT Lactate Dehydrogenase Total Creatine Kinase C-Reactive Protein Total Protein Albumin Free T4 Urine WBC (Auto) Urine Total Protein Digoxin Salicylates Acetaminophen 01/13/20 01/13/20 01/13/20 17:59 20:37 22:17 WBC RBC Hgb Hct MCV MCH MCHC RDW Plt Count Lymph % (Auto) [place] % (Auto) Eos % (Auto) Baso % (Auto) Lymph # [place] # Eos # Baso # Seg Neutrophils % Monocytes % (Manual) Monocytes # (Manual) D-Dimer ABG pH ABG pO2 ABG HCO3 ABG O2 Saturation ABG Base Excess ABG Hemoglobin Oxyhemoglobin Sodium Potassium Chloride Carbon Dioxide BUN Creatinine Glucose POC Glucose 114 H 152 H Lactic Acid Calcium Magnesium AST ALT Lactate Dehydrogenase Total Creatine Kinase C-Reactive Protein Total Protein Albumin Free T4 0.63 L Urine WBC (Auto) Urine Total Protein Digoxin Salicylates Acetaminophen 01/13/20 01/14/20 01/14/20 Unknown 02:10 05:20 WBC RBC 3.39 L Hgb 8.1 L Hct 28.4 L MCV MCH 24 L MCHC 29 L RDW 19.9 H Plt Count 713 H Lymph % (Auto) [place] % (Auto) 12.7 H Eos % (Auto) Baso % (Auto) 1.9 H Lymph # [place] # 1.3 H Eos # Baso # 0.2 H Seg Neutrophils % Monocytes % (Manual) Monocytes # (Manual) D-Dimer ABG pH ABG pO2 ABG HCO3 ABG O2 Saturation ABG Base Excess ABG Hemoglobin Oxyhemoglobin Sodium Potassium Chloride Carbon Dioxide BUN Creatinine Glucose POC Glucose 151 H 157 H Lactic Acid Calcium Magnesium AST ALT Lactate Dehydrogenase Total Creatine Kinase C-Reactive Protein Total Protein Albumin Free T4 Urine WBC (Auto) Urine Total Protein Digoxin Salicylates Acetaminophen 01/14/20 01/14/20 01/14/20 11:49 14:56 18:03 WBC RBC Hgb Hct MCV MCH MCHC RDW Plt Count Lymph % (Auto) [place] % (Auto) Eos % (Auto) Baso % (Auto) Lymph # [place] # Eos # Baso # Seg Neutrophils % Monocytes % (Manual) Monocytes # (Manual) D-Dimer ABG pH ABG pO2 ABG HCO3 ABG O2 Saturation ABG Base Excess ABG Hemoglobin Oxyhemoglobin Sodium Potassium Chloride Carbon Dioxide BUN Creatinine Glucose POC Glucose 139 H 112 H 134 H Lactic Acid Calcium Magnesium AST ALT Lactate Dehydrogenase Total Creatine Kinase C-Reactive Protein Total Protein Albumin Free T4 Urine WBC (Auto) Urine Total Protein Digoxin Salicylates Acetaminophen 01/14/20 01/15/20 01/15/20 22:03 02:21 05:28 WBC RBC Hgb Hct MCV MCH MCHC RDW Plt Count Lymph % (Auto) [place] % (Auto) Eos % (Auto) Baso % (Auto) Lymph # [place] # Eos # Baso # Seg Neutrophils % Monocytes % (Manual) Monocytes # (Manual) D-Dimer ABG pH ABG pO2 ABG HCO3 ABG O2 Saturation ABG Base Excess ABG Hemoglobin Oxyhemoglobin Sodium Potassium Chloride Carbon Dioxide BUN Creatinine Glucose POC Glucose 173 H 129 H 127 H Lactic Acid Calcium Magnesium AST ALT Lactate Dehydrogenase Total Creatine Kinase C-Reactive Protein Total Protein Albumin Free T4 Urine WBC (Auto) Urine Total Protein Digoxin Salicylates Acetaminophen 01/15/20 01/15/20 01/15/20 10:43 16:14 18:25 WBC RBC Hgb Hct MCV MCH MCHC RDW Plt Count Lymph % (Auto) [place] % (Auto) Eos % (Auto) Baso % (Auto) Lymph # [place] # Eos # Baso # Seg Neutrophils % Monocytes % (Manual) Monocytes # (Manual) D-Dimer ABG pH ABG pO2 ABG HCO3 ABG O2 Saturation ABG Base Excess ABG Hemoglobin Oxyhemoglobin Sodium Potassium Chloride Carbon Dioxide BUN Creatinine Glucose POC Glucose 150 H 133 H 166 H Lactic Acid Calcium Magnesium AST ALT Lactate Dehydrogenase Total Creatine Kinase C-Reactive Protein Total Protein Albumin Free T4 Urine WBC (Auto) Urine Total Protein Digoxin Salicylates Acetaminophen 01/15/20 01/16/20 01/16/20 23:03 02:11 06:00 WBC RBC 3.19 L Hgb 7.9 L Hct 26.2 L MCV 82 L MCH 25 L MCHC 30 L RDW 20.1 H Plt Count 466 H Lymph % (Auto) 12.9 L [place] % (Auto) 11.2 H Eos % (Auto) 11.0 H Baso % (Auto) Lymph # 1.1 L [place] # 0.9 H Eos # 0.9 H Baso # Seg Neutrophils % Monocytes % (Manual) Monocytes # (Manual) D-Dimer ABG pH ABG pO2 ABG HCO3 ABG O2 Saturation ABG Base Excess ABG Hemoglobin Oxyhemoglobin Sodium Potassium Chloride Carbon Dioxide BUN Creatinine Glucose POC Glucose 143 H 136 H Lactic Acid Calcium Magnesium AST ALT Lactate Dehydrogenase Total Creatine Kinase C-Reactive Protein Total Protein Albumin Free T4 Urine WBC (Auto) Urine Total Protein Digoxin Salicylates Acetaminophen 01/16/20 01/16/20 01/16/20 06:00 06:10 11:52 WBC RBC Hgb Hct MCV MCH MCHC RDW Plt Count Lymph % (Auto) [place] % (Auto) Eos % (Auto) Baso % (Auto) Lymph # [place] # Eos # Baso # Seg Neutrophils % Monocytes % (Manual) Monocytes # (Manual) D-Dimer ABG pH ABG pO2 ABG HCO3 ABG O2 Saturation ABG Base Excess ABG Hemoglobin Oxyhemoglobin Sodium 152 H Potassium Chloride 110.2 H Carbon Dioxide 36 H BUN 23 H Creatinine 0.7 L Glucose 161 H POC Glucose 192 H 184 H Lactic Acid Calcium Magnesium AST ALT Lactate Dehydrogenase Total Creatine Kinase C-Reactive Protein Total Protein Albumin Free T4 Urine WBC (Auto) Urine Total Protein Digoxin Salicylates Acetaminophen 01/16/20 01/16/20 01/16/20 15:15 17:12 22:12 WBC RBC Hgb Hct MCV MCH MCHC RDW Plt Count Lymph % (Auto) [place] % (Auto) Eos % (Auto) Baso % (Auto) Lymph # [place] # Eos # Baso # Seg Neutrophils % Monocytes % (Manual) Monocytes # (Manual) D-Dimer ABG pH ABG pO2 ABG HCO3 ABG O2 Saturation ABG Base Excess ABG Hemoglobin Oxyhemoglobin Sodium Potassium Chloride Carbon Dioxide BUN Creatinine Glucose POC Glucose 224 H 183 H 106 H Lactic Acid Calcium Magnesium AST ALT Lactate Dehydrogenase Total Creatine Kinase C-Reactive Protein Total Protein Albumin Free T4 Urine WBC (Auto) Urine Total Protein Digoxin Salicylates Acetaminophen 01/17/20 01/17/20 01/17/20 02:13 06:10 06:20 WBC RBC 3.50 L Hgb 8.6 L Hct 29.0 L MCV 83 L MCH 25 L MCHC 30 L RDW 21.1 H Plt Count 517 H Lymph % (Auto) [place] % (Auto) 9.7 H Eos % (Auto) 11.9 H Baso % (Auto) Lymph # [place] # Eos # 1.0 H Baso # Seg Neutrophils % Monocytes % (Manual) Monocytes # (Manual) D-Dimer ABG pH ABG pO2 ABG HCO3 ABG O2 Saturation ABG Base Excess ABG Hemoglobin Oxyhemoglobin Sodium Potassium Chloride Carbon Dioxide BUN Creatinine Glucose POC Glucose 164 H 178 H Lactic Acid Calcium Magnesium AST ALT Lactate Dehydrogenase Total Creatine Kinase C-Reactive Protein Total Protein Albumin Free T4 Urine WBC (Auto) Urine Total Protein Digoxin Salicylates Acetaminophen 01/17/20 01/17/20 01/17/20 06:20 10:48 13:23 WBC RBC Hgb Hct MCV MCH MCHC RDW Plt Count Lymph % (Auto) [place] % (Auto) Eos % (Auto) Baso % (Auto) Lymph # [place] # Eos # Baso # Seg Neutrophils % Monocytes % (Manual) Monocytes # (Manual) D-Dimer ABG pH ABG pO2 ABG HCO3 ABG O2 Saturation ABG Base Excess ABG Hemoglobin Oxyhemoglobin Sodium 148 H Potassium Chloride Carbon Dioxide 34 H BUN 21 H Creatinine 0.6 L Glucose 151 H POC Glucose 172 H 161 H Lactic Acid Calcium Magnesium AST ALT Lactate Dehydrogenase Total Creatine Kinase C-Reactive Protein Total Protein Albumin Free T4 Urine WBC (Auto) Urine Total Protein Digoxin Salicylates Acetaminophen 01/17/20 01/17/20 01/18/20 17:23 21:46 04:45 WBC RBC 3.28 L Hgb 8.0 L Hct 27.0 L MCV 82 L MCH 24 L MCHC 30 L RDW 21.0 H Plt Count 450 H Lymph % (Auto) [place] % (Auto) 11.5 H Eos % (Auto) 13.1 H Baso % (Auto) Lymph # [place] # Eos # 0.9 H Baso # Seg Neutrophils % Monocytes % (Manual) Monocytes # (Manual) D-Dimer ABG pH ABG pO2 ABG HCO3 ABG O2 Saturation ABG Base Excess ABG Hemoglobin Oxyhemoglobin Sodium Potassium Chloride Carbon Dioxide BUN Creatinine Glucose POC Glucose 138 H 106 H Lactic Acid Calcium Magnesium AST ALT Lactate Dehydrogenase Total Creatine Kinase C-Reactive Protein Total Protein Albumin Free T4 Urine WBC (Auto) Urine Total Protein Digoxin Salicylates Acetaminophen 01/18/20 04:45 WBC RBC Hgb Hct MCV MCH MCHC RDW Plt Count Lymph % (Auto) [place] % (Auto) Eos % (Auto) Baso % (Auto) Lymph # [place] # Eos # Baso # Seg Neutrophils % Monocytes % (Manual) Monocytes # (Manual) D-Dimer ABG pH ABG pO2 ABG HCO3 ABG O2 Saturation ABG Base Excess ABG Hemoglobin Oxyhemoglobin Sodium Potassium Chloride Carbon Dioxide 35 H BUN Creatinine Glucose 71 L POC Glucose Lactic Acid Calcium Magnesium AST ALT Lactate Dehydrogenase Total Creatine Kinase C-Reactive Protein Total Protein Albumin Free T4 Urine WBC (Auto) Urine Total Protein Digoxin Salicylates Acetaminophen Chest x-ray: image reviewed Allied health notes reviewed: RT
[2020-01-18] MEDS ORDERED: BUPIVACAINE/PF (0.5%) 5 MG/1 ML 30 ML VIAL INFILTRATI ONE (10:20)
[2020-01-18] MEDS ORDERED: LIDOCAINE (1%) 10 MG/1 ML VIAL 20 ML MDV ONE (10:20)
[2020-01-18] MEDS ORDERED: ROCURONIUM 50 MG/5 ML INJ IV ONE (10:54)
[2020-01-18] MEDS ORDERED: ePHEDrine SULFATE 50 MG/1 ML INJ ONE (11:08)
--- NOTE | 2020-01-18 11:11 | Progress Note ---
Assessment and Plan Sinus bradycardia is uncertain echo: LVEF 45-50% TSH 2.3 A persistently elevated vagal tone or vasodepressor reaction is a possible etiology, versus underlying conduction system disease. Pneumonia negative COVID PCR x 2 Acute Respiratory failure Acute kidney injury -resolved Positive MRSA-sputum Anemia Avoid AV estella blocking agents. Continue telemetry monitoring. Atropine to be used as needed for heart rate below 40. Subjective Date of service: 01/18/20 Principal diagnosis: Ac. Hypoxemic Resp Failure; Septic Shock; Magdiel. PNA; PUI COVID-19; CHF; JOE Interval history: Patient is awake but remains intubated and on low dose dopamine. Awaits for planned PEG and trach. Stable sinus rhythm on telemetry. Objective Vital Signs Temp Pulse Pulse Pulse Resp Resp BP 01/18/20 09:15 75 14 121/64 01/18/20 09:00 75 13 114/73 01/18/20 08:45 69 14 97/46 01/18/20 08:30 68 14 103/50 01/18/20 08:20 69 119/89 01/18/20 08:15 83 11 L 100/57 01/18/20 08:00 97.4 F L 73 63 17 100/57 01/18/20 07:45 75 14 92/56 01/18/20 07:30 80 14 92/52 01/18/20 07:15 81 14 99/59 01/18/20 07:00 79 14 103/59 01/18/20 06:45 78 14 137/93 01/18/20 06:31 60 12 137/93 01/18/20 06:15 70 14 142/67 01/18/20 06:01 71 14 128/65 01/18/20 05:45 77 17 132/75 01/18/20 05:31 67 15 123/68 01/18/20 05:20 64 63 14 01/18/20 05:18 143/104 01/18/20 05:15 61 17 143/101 01/18/20 05:00 64 18 135/76 01/18/20 04:45 56 L 14 135/76 01/18/20 04:30 64 14 125/83 01/18/20 04:16 60 14 125/83 01/18/20 04:00 96.7 F L 59 L 14 98/54 01/18/20 03:45 68 14 98/54 07/14/20 03:30 66 14 94/55 01/18/20 03:15 69 14 88/51 01/18/20 03:00 66 14 97/57 01/18/20 02:45 63 14 100/52 01/18/20 02:30 70 14 101/57 01/18/20 02:15 69 14 99/56 01/18/20 02:00 59 L 14 99/55 01/18/20 01:45 65 14 99/55 01/18/20 01:30 72 14 101/53 01/18/20 01:15 71 14 101/53 01/18/20 01:00 73 14 98/51 01/18/20 00:45 67 14 100/54 01/18/20 00:30 73 14 97/55 01/18/20 00:15 73 14 90/46 01/18/20 00:06 88/48 01/18/20 00:00 96 F L 70 14 88/48 01/17/20 23:45 75 14 95/47 01/17/20 23:30 69 14 111/66 01/17/20 23:20 69 63 14 01/17/20 23:15 69 14 109/60 01/17/20 23:00 68 14 128/69 01/17/20 22:45 57 L 14 128/69 01/17/20 22:30 74 15 169/104 01/17/20 22:16 70 22 139/85 01/17/20 22:00 53 L 59 L 16 135/67 01/17/20 21:45 52 L 17 135/67 01/17/20 21:30 66 14 121/61 01/17/20 21:15 58 L 14 121/61 01/17/20 21:00 63 14 105/57 01/17/20 20:46 57 L 14 116/60 01/17/20 20:30 59 L 14 105/57 01/17/20 20:17 68 14 01/17/20 20:15 66 14 105/57 01/17/20 20:12 64 105/57 01/17/20 20:00 96 F L 60 59 L 14 100/54 01/17/20 19:45 69 14 102/55 01/17/20 19:30 68 14 99/55 01/17/20 19:15 70 14 92/50 01/17/20 19:00 69 14 98/47 01/17/20 18:45 59 L 14 111/63 01/17/20 18:30 64 14 99/53 01/17/20 18:15 66 14 95/54 01/17/20 18:00 69 14 97/53 01/17/20 17:45 63 14 99/51 01/17/20 17:30 69 14 101/54 01/17/20 17:15 64 14 103/58 01/17/20 17:00 67 14 97/51 01/17/20 16:45 68 14 103/56 01/17/20 16:30 67 14 100/73 01/17/20 16:16 65 14 118/60 01/17/20 16:00 97.6 F 46 L 46 L 14 95/65 01/17/20 15:45 44 L 16 100/73 01/17/20 15:30 68 13 98/51 01/17/20 15:24 62 110/51 01/17/20 15:15 73 14 98/51 01/17/20 15:00 72 14 106/55 01/17/20 14:46 66 14 110/51 01/17/20 14:30 62 14 107/83 01/17/20 14:16 69 15 107/83 01/17/20 14:00 66 14 121/65 01/17/20 13:45 66 14 121/65 01/17/20 13:30 60 14 119/73 01/17/20 13:15 61 16 119/73 01/17/20 13:03 62 15 01/17/20 13:00 58 L 18 126/79 01/17/20 12:46 67 17 126/79 01/17/20 12:30 60 17 139/74 01/17/20 12:16 64 18 139/74 01/17/20 12:00 97.5 F L 63 63 19 156/84 01/17/20 11:45 66 17 156/84 01/17/20 11:30 55 L 18 151/76 01/17/20 11:16 53 L 19 149/79 Pulse Ox 01/18/20 09:15 95 01/18/20 09:00 97 01/18/20 08:45 96 01/18/20 08:30 97 01/18/20 08:20 98 01/18/20 08:15 96 01/18/20 08:00 97 01/18/20 07:45 95 01/18/20 07:30 96 01/18/20 07:15 97 01/18/20 07:00 98 01/18/20 06:45 100 01/18/20 06:31 90 01/18/20 06:15 95 01/18/20 06:01 94 01/18/20 05:45 95 01/18/20 05:31 98 01/18/20 05:20 95 01/18/20 05:18 95 01/18/20 05:15 93 01/18/20 05:00 91 01/18/20 04:45 95 01/18/20 04:30 96 01/18/20 04:16 95 01/18/20 04:00 95 01/18/20 03:45 95 01/18/20 03:30 94 01/18/20 03:15 96 01/18/20 03:00 94 01/18/20 02:45 93 01/18/20 02:30 95 01/18/20 02:15 94 01/18/20 02:00 95 01/18/20 01:45 96 01/18/20 01:30 98 01/18/20 01:15 95 01/18/20 01:00 95 01/18/20 00:45 96 01/18/20 00:30 97 01/18/20 00:15 94 01/18/20 00:06 94 01/18/20 00:00 93 01/17/20 23:45 94 01/17/20 23:30 98 01/17/20 23:20 96 01/17/20 23:15 96 01/17/20 23:00 93 01/17/20 22:45 92 01/17/20 22:30 95 01/17/20 22:16 95 01/17/20 22:00 95 01/17/20 21:45 96 01/17/20 21:30 94 01/17/20 21:15 96 01/17/20 21:00 93 01/17/20 20:46 97 01/17/20 20:30 95 01/17/20 20:17 01/17/20 20:15 94 01/17/20 20:12 95 01/17/20 20:00 94 01/17/20 19:45 95 01/17/20 19:30 95 01/17/20 19:15 94 01/17/20 19:00 93 01/17/20 18:45 94 01/17/20 18:30 91 01/17/20 18:15 94 01/17/20 18:00 94 01/17/20 17:45 94 01/17/20 17:30 93 01/17/20 17:15 94 01/17/20 17:00 93 01/17/20 16:45 93 01/17/20 16:30 93 01/17/20 16:16 96 01/17/20 16:00 93 01/17/20 15:45 86 01/17/20 15:30 95 01/17/20 15:24 93 01/17/20 15:15 93 01/17/20 15:00 94 01/17/20 14:46 94 01/17/20 14:30 95 01/17/20 14:16 94 01/17/20 14:00 96 01/17/20 13:45 96 01/17/20 13:30 94 01/17/20 13:15 94 01/17/20 13:03 01/17/20 13:00 95 01/17/20 12:46 95 01/17/20 12:30 94 01/17/20 12:16 97 01/17/20 12:00 97 01/17/20 11:45 98 01/17/20 11:30 97 01/17/20 11:16 98 - Physical Examination General: Other (intubated on the vent) HEENT: Positive: PERRL Cardiac: Positive: Reg Rate and Rhythm Neuro: Positive: Other (Intubated, on the vent) - Labs and Meds Coagulation 01/18/20 Range/Units 04:45 PT 13.3 (12.2-14.9) Sec. INR 1.03 (0.87-1.13) CBC 01/18/20 Range/Units 04:45 WBC 6.7 (4.5-11.0) K/mm3 RBC 3.28 L (3.65-5.03) M/mm3 Hgb 8.0 L (11.8-15.2) gm/dl Hct 27.0 L (35.5-45.6) % Plt Count 450 H (140-440) K/mm3 Lymph # 1.2 (1.2-5.4) K/mm3 [place] # 0.8 (0.0-0.8) K/mm3 Eos # 0.9 H (0.0-0.4) K/mm3 Baso # 0.1 (0.0-0.1) K/mm3 Comprehensive Metabolic Panel 01/18/20 Range/Units 04:45 Sodium 141 (137-145) mmol/L Potassium 4.5 (3.6-5.0) mmol/L Chloride 98.8 (98-107) mmol/L Carbon Dioxide 35 H (22-30) mmol/L BUN 18 (9-20) mg/dL Creatinine 0.8 (0.8-1.5) mg/dL Glucose 71 L (75-100) mg/dL Calcium 8.6 (8.4-10.2) mg/dL
[2020-01-18] MEDS ORDERED: SODIUM CHLORIDE P/F VIAL 10 ML 30 ML ONE (11:12)
[2020-01-18] MEDS ORDERED: SODIUM CHLORIDE 0.9% 100 ML ONE (11:12)
[2020-01-18] MEDS ORDERED: SODIUM CHLORIDE 0.9% IRR 1,500 ML BOTTLE IR ONE (11:28)
--- NOTE | 2020-01-18 11:50 | Operative Report ---
Operative Report Operative Report: Date of surgery: 01/18/2020 Preoperative diagnosis: Ventilator dependent respiratory failure Postoperative diagnosis: Same as above Procedure: Percutaneous tracheostomy Surgeon: Hamlet Vasquez DO Anesthesia: GETA Findings: Good placement of tracheostomy with satisfactory inspiratory and expiratory tidal volumes EBL: Less than 5 cc Specimen: None Complications: None Disposition: Stable HPI and indication: Patient is a 59-year-old male who presented to the hospital with respiratory distress. He was intubated for airway protection. He is not been able to be weaned from the ventilator due to bilateral pneumonia. Surgery was consulted for tracheostomy and PEG tube placement. All risks, benefits, alternatives to surgery were discussed with the patient's sisters and consent obtained. All questions were answered. Procedure in detail: The patient was identified and brought down to the operating room and placed on the operating room table in supine position. The neck was prepped and draped in usual sterile fashion. Anesthesia was administered. Dr. Auguste performed fiberoptic bronchoscopy throughout the entire procedure (see separate procedure note). 1% lidocaine was infiltrated into the skin and subcutaneous tissue approximately 2 fingerbreadths above the judy. A 2 cm incision was made in a horizontal fashion using a 15 blade. Using a hemostat the soft tissues were bluntly dissected until the trachea was encountered. The introducer needle was then used to enter the trachea under direct visualization, through which the wire was passed down the trachea towards the judy. Introducer needle was then removed. The trachea was then serially dilated, after which a 8 K[place] Sh[place] tracheostomy tube was inserted. The balloon was seen to enter the trachea. The balloon was inflated, patient placed back on ventilator, and tidal volumes assessed which were satisfactory. The bronchoscope was then placed this through the tracheostomy and showed good positioning of the tracheostomy above the judy and no bleeding. The tracheostomy was sutured into place using 2-0 Prolene sutures. A drain sponge was placed between the skin and tracheostomy. The tracheostomy was secured to the patient's neck using a tracheostomy strap. A post op chest x-ray is pending. The patient tolerated the procedure well. All sharps were disposed of appropriately.
--- NOTE | 2020-01-18 12:27 | Anesthesia Consultation ---
Anesthesia Consult and Med Hx Date of service: 01/18/20 - Airway Intubation Access Assessment: Probably Good (oETT in situ) - Pulmonary Exam CTA: No - Cardiac Exam Cardiac Exam: RRR - Pre-Operative Health Status ASA Pre-Surgery Classification: ASA4 Proposed Anesthetic Plan: General - Pulmonary Hx Respiratory Symptoms: Yes (acute respiratory failure 2/2 PNA; now vent dependent) Hx Pneumonia: Yes (COVID neg x2 this admission) Hx Sleep Apnea: Yes - Cardiovascular System Hx Hypertension: Yes Hx Heart Attack/AMI: No (EF 45-50%) Hx Percutaneous Transluminal Coronary Angioplasty (PTCA): No Hx Cardia Arrhythmia: Yes (bradycardia intermittently requiring dopamine gtt) Hx Pacemaker: No Hx Internal Defibrillator: No - Central Nervous System CVA: No - Endocrine Hx Renal Disease: Yes (JAGDEEP this admission now resolved) Hx Liver Disease: No Hx Insulin Dependent Diabetes: No Hx Non-Insulin Dependent Diabetes: No Hx Hypothyroidism: Yes - Hematic Hx Anemia: Yes - Other Systems Hx Obesity: Yes (BMI 33) - Additional Comments Anesthesia Medical History Comments: Dopamine gtt @ 2mcg, fentanyl gtt @ 2mcg
--- NOTE | 2020-01-18 12:28 | Anesthesia Day of Surgery ---
Anesthesia Day of Surgery - Day of Surgery Patient Examined: Yes Patient H&P Reviewed: Yes Patient is NPO: Yes Beta Blockers: No (contraindicated 2/2 bradycardia)
[2020-01-18] MEDS: NORepinephrine/NS 4 MG-250 ML 4 MG/250 ML BAG IV SCH (12:30)
--- NOTE | 2020-01-18 12:30 | Post Anesthesia Evaluation ---
- Post Anesthesia Evaluation Patient Participated: No (sedated) Airway Patent: Yes Stable Respiratory Function: Yes Nausea/Vomiting: No Temp > 96.8F: Yes Pain Manageable: Yes Adequeate Hydration: Yes Anesthesia Complications: No Patient on Ventilator: Yes (450x14, FiO2 50% (35% preop), Peep 8) Other Comments: Transported to ICU with vitals monitored and stable, AMBU, and dopamine, fentanyl gtts. Handoff given to RN at bedside. Placed on vent by RT.
--- NOTE | 2020-01-18 12:44 | XRay Report ---
CHEST 1 VIEW 01/18/2020 11:35 AM INDICATION / CLINICAL INFORMATION: tracheostomy placement. COMPARISON: 01/13/20 FINDINGS: SUPPORT DEVICES: Endotracheal tube has been removed with placement of tracheostomy tube in expected p osition. Esophagogastric tube has been removed. Right PICC is unchanged. HEART / MEDIASTINUM: Stable. LUNGS / PLEURA: Bilateral pulmonary opacities are unchanged. No pneumothorax. ADDITIONAL FINDINGS: No significant additional findings. IMPRESSION: 1. Tracheostomy tube in expected position. Signer Name: Nicole Sarah MD Signed: 01/18/2020 12:39 PM Workstation Name: [id number]
--- NOTE | 2020-01-18 13:21 | Procedure Note ---
Date of procedure: 01/18/20 Pre-op diagnosis: respiratory failure Post-op diagnosis: same Procedure: Bronchoscopy Consent was on the chart. Timeout was called. After adequate general anesthesia was established, flexible bronchoscope was introduced via the ETT. The airway was full of mucus. We had to suction this out. ETT was intially at 24cm. We pulled it back to 18cm. Eventually, we ended up pulling it back to 17cm. Under bronchoscopic guidance, Dr. Vasquez performed the tracheostomy. Introducer needle, dilator, guidewire, larger dilators, and tracheostomy tube were all directly observed during the case. After the tracheostomy tube was inserted, bronchoscope was introduced via the trach tube and position was confirmed. There was no bleeding. The tip of the tube was at least 5-6cm above the judy. Pt tolerated the procedure well. There were no complications. PEG placement Co-Surgeons Pedro Guevara Anesth Gen EBL min Implant 20Fr pull PEG tube Procedure - timeout had already been performed. Consent was on the chart. Bite-block was placed. Endoscope was inserted. We intubated the esophagus. Scope was passed down to the stomach. Stomach was insufflated. We identified the area of transillumination in the body of stomach. Dr. Vasquez then prepped and draped that area. Local anesthetic was administered. Small incision was made. Introducer needle was passed into the stomach. Guidewire was passed which was grabbed with the snare and pulled back up to the mouth. PEG tube was attached. Dr. Vasquez pulled the PEG tube back into the stomach. Endoscope was reinserted. The button was visualized. There was no evidence of bleeding. There did not appear to be any excess pressure on the stomach. The rest of the stomach was inspected. First and second portions of duodenum were inspected. Esophagus was evaluated as the scope was being pulled out. No abnormalities were found. Patient tolerated the procedure well. There were no complications. The PEG collar was at 3 cm. Patient was in stable condition at the end of the case in OR. Findings: normal anatomy. Lots of mucus in trachea Implants: 20Fr PEG tube Anesthesia: GETA Surgeon: VERNON GUEVRAA (Co-Surgeon Pedro) Estimated blood loss: minimal Pathology: none Condition: stable Disposition: PACU
[2020-01-18] MEDS: DEXTROSE 5% IN WATER 1,000 ML IV SCH (18:37)
[2020-01-18] MEDS: DOPamine/D5W 800 MG/250 ML 800 MG/250 ML BAG IV SCH (18:45)
[2020-01-18] MEDS: POLYETHYLENE GLYCOL 3350 17 GM POWDER PO SCH (23:13)
[2020-01-19] MEDS: fentaNYL DRIP Premix 2,000 MCG/100 ML BAG IV SCH ×3 (02:02→13:34)
[2020-01-19] MEDS: INSULIN LISPRO 100 UNIT/ML SUB-Q SCH ×6 (03:36→22:00)
[2020-01-19] MEDS: LEVOTHYROXINE 88 MCG TAB PO SCH (05:30)
[2020-01-19 06:09] LABS: Basophils % (Auto) 0.6 % (0.0-1.8); Eosinophils # (Auto) 0.6 K/mm3 (0.0-0.4); Eosinophils % (Auto) 7.9 % (0.0-4.3); Hematocrit 27.2 % (35.5-45.6); Hemoglobin 8.1 gm/dl (11.8-15.2); Lymphocytes # (Auto) 0.8 K/mm3 (1.2-5.4); Lymphocytes % (Auto) 10.3 % (13.4-35.0); Mean Corpuscular HGB Conc 30 % (32-34); Mean Corpuscular Volume 82 fl (84-94); Platelet Count 387 K/mm3 (140-440)
[2020-01-19 06:30] LABS: BUN/Creatinine Ratio 17; Blood Urea Nitrogen 15 mg/dL (9-20); Calcium 8.6 mg/dL (8.4-10.2); Hemolysis Index 6
[2020-01-19 06:50] LABS: Red Cell Distribution Width 20.6 % (13.2-15.2)
[2020-01-19] MEDS: DEXTROSE 5% IN WATER 1,000 ML IV SCH ×2 (07:43→21:26)
[2020-01-19] MEDS: DOCUSATE SODIUM 100 MG/10 ML ORAL LIQD PO SCH ×2 (09:01→22:00)
[2020-01-19] MEDS: INSULIN GLARGINE 100 UNITS/ML SUB-Q SCH ×2 (09:01→21:27)
[2020-01-19] MEDS: FAMOTIDINE 20 MG TAB PO SCH ×2 (09:01→21:27)
[2020-01-19] MEDS: IPRATROPIUM/ALBUTEROL SULFATE 3 ML AMPUL.NEB IH SCH ×3 (09:31→20:50)
--- NOTE | 2020-01-19 12:14 | Progress Note ---
Assessment and Plan Sinus bradycardia is uncertain echo: LVEF 45-50% TSH 2.3 A persistently elevated vagal tone or vasodepressor reaction is a possible etiology, versus underlying conduction system disease. Pneumonia negative COVID PCR x 2 Acute Respiratory failure s/p trach Acute kidney injury -resolved Positive MRSA-sputum Anemia Avoid AV estella blocking agents. Atropine to be used as needed for heart rate below 40. Otherwise, conservative cardiac management. Subjective Date of service: 01/19/20 Principal diagnosis: Ac. Hypoxemic Resp Failure; Septic Shock; Magdiel. PNA; PUI COVID-19; CHF; JOE Interval history: Patient underwent PEG and trach placement yesterday. Remains on low dose dopamine. Stable sinus rhythm on telemetry. Objective Vital Signs Temp Pulse Pulse Pulse Resp Resp BP 01/19/20 11:17 65 155/86 01/19/20 09:34 01/19/20 09:33 58 L 130/82 01/19/20 09:31 69 14 01/19/20 08:15 61 14 152/77 01/19/20 08:01 61 14 131/64 01/19/20 08:00 97.5 F L 01/19/20 07:45 70 14 126/67 01/19/20 07:30 65 14 126/67 01/19/20 07:15 61 14 122/60 01/19/20 07:00 85 13 139/96 01/19/20 06:45 61 14 135/70 01/19/20 06:30 60 14 126/64 01/19/20 06:15 66 14 121/73 01/19/20 06:00 66 14 125/69 01/19/20 05:45 68 14 120/74 01/19/20 05:30 69 14 146/77 01/19/20 05:15 81 11 L 150/80 01/19/20 05:00 70 14 118/51 01/19/20 04:45 85 14 162/82 01/19/20 04:30 75 14 111/59 01/19/20 04:15 73 14 119/61 01/19/20 04:01 80 13 143/77 01/19/20 04:00 97.1 F L 76 01/19/20 03:58 74 143/77 01/19/20 03:56 01/19/20 03:45 88 21 166/86 01/19/20 03:30 86 13 173/138 01/19/20 03:15 81 15 159/85 01/19/20 03:00 69 14 118/59 01/19/20 02:45 73 14 124/50 01/19/20 02:30 75 14 150/65 01/19/20 02:15 88 14 153/96 01/19/20 02:01 73 14 107/61 01/19/20 01:45 72 14 124/56 01/19/20 01:30 77 14 145/78 01/19/20 01:15 77 14 124/49 01/19/20 01:00 76 14 118/53 01/19/20 00:45 79 13 158/82 01/19/20 00:43 97.9 F 01/19/20 00:30 79 14 101/57 01/19/20 00:15 79 14 102/58 01/19/20 00:00 97.9 F 81 14 127/57 01/18/20 23:49 82 140/79 01/18/20 23:45 87 13 140/79 01/18/20 23:35 84 17 149/80 01/18/20 23:30 82 14 149/80 01/18/20 23:15 78 14 106/50 01/18/20 23:00 86 15 147/78 01/18/20 22:45 78 14 96/53 01/18/20 22:30 79 14 108/50 01/18/20 22:15 85 14 136/78 01/18/20 22:00 82 14 108/59 01/18/20 21:45 85 14 111/63 01/18/20 21:41 98.0 F 01/18/20 21:30 87 18 115/62 01/18/20 21:15 80 16 113/54 01/18/20 21:00 78 14 113/62 01/18/20 20:45 80 18 115/63 01/18/20 20:31 87 22 122/59 01/18/20 20:15 76 14 98/58 01/18/20 20:01 77 01/18/20 20:00 97.9 F 75 65 14 105/61 01/18/20 19:54 75 14 01/18/20 19:50 75 103/62 01/18/20 19:45 79 14 103/62 01/18/20 19:30 73 14 107/60 01/18/20 19:15 93 H 17 81/45 01/18/20 19:01 80 14 81/45 01/18/20 18:45 83 14 107/65 01/18/20 18:30 77 14 101/68 01/18/20 18:15 89 14 104/60 01/18/20 18:00 77 14 126/78 01/18/20 17:45 129/70 01/18/20 17:31 74 14 129/70 01/18/20 17:15 76 14 90/49 01/18/20 17:00 78 14 99/59 01/18/20 16:45 75 14 110/70 01/18/20 16:30 72 14 106/63 01/18/20 16:15 78 14 119/69 01/18/20 16:00 97.8 F 73 85 14 113/61 01/18/20 15:45 76 14 118/63 01/18/20 15:31 86 18 137/118 01/18/20 15:15 64 16 179/150 01/18/20 15:01 74 22 203/81 01/18/20 14:45 66 17 203/81 01/18/20 14:31 83 19 208/86 01/18/20 14:21 01/18/20 14:20 80 19 01/18/20 14:15 84 18 204/93 01/18/20 14:01 83 20 164/80 01/18/20 13:45 62 20 164/80 01/18/20 13:31 54 L 14 164/80 01/18/20 13:15 64 19 175/117 01/18/20 13:01 52 L 13 01/18/20 12:45 51 L 14 74/40 01/18/20 12:31 65 14 77/41 01/18/20 12:15 72 14 103/62 01/18/20 12:14 71 103/62 Pulse Ox Pulse Ox 01/19/20 11:17 96 01/19/20 09:34 97 01/19/20 09:33 97 01/19/20 09:31 01/19/20 08:15 98 01/19/20 08:01 95 01/19/20 08:00 01/19/20 07:45 01/19/20 07:30 97 01/19/20 07:15 01/19/20 07:00 96 01/19/20 06:45 96 01/19/20 06:30 95 01/19/20 06:15 96 01/19/20 06:00 95 01/19/20 05:45 94 01/19/20 05:30 94 01/19/20 05:15 01/19/20 05:00 98 01/19/20 04:45 95 01/19/20 04:30 96 01/19/20 04:15 93 01/19/20 04:01 97 01/19/20 04:00 01/19/20 03:58 96 01/19/20 03:56 95 01/19/20 03:45 97 01/19/20 03:30 87 01/19/20 03:15 88 01/19/20 03:00 96 01/19/20 02:45 95 01/19/20 02:30 96 01/19/20 02:15 91 01/19/20 02:01 95 01/19/20 01:45 95 01/19/20 01:30 95 01/19/20 01:15 94 01/19/20 01:00 95 01/19/20 00:45 90 01/19/20 00:43 01/19/20 00:30 95 01/19/20 00:15 95 01/19/20 00:00 96 01/18/20 23:49 94 01/18/20 23:45 95 01/18/20 23:35 93 01/18/20 23:30 91 01/18/20 23:15 95 01/18/20 23:00 93 01/18/20 22:45 93 01/18/20 22:30 94 01/18/20 22:15 01/18/20 22:00 96 01/18/20 21:45 94 01/18/20 21:41 01/18/20 21:30 96 01/18/20 21:15 94 01/18/20 21:00 95 01/18/20 20:45 94 01/18/20 20:31 95 01/18/20 20:15 92 01/18/20 20:01 01/18/20 20:00 94 01/18/20 19:54 01/18/20 19:50 98 01/18/20 19:45 96 01/18/20 19:30 96 01/18/20 19:15 99 01/18/20 19:01 96 01/18/20 18:45 01/18/20 18:30 97 01/18/20 18:15 99 01/18/20 18:00 98 01/18/20 17:45 98 01/18/20 17:31 98 01/18/20 17:15 96 01/18/20 17:00 98 01/18/20 16:45 98 01/18/20 16:30 98 01/18/20 16:15 98 01/18/20 16:00 98 01/18/20 15:45 98 01/18/20 15:31 98 01/18/20 15:15 97 01/18/20 15:01 94 01/18/20 14:45 95 01/18/20 14:31 95 01/18/20 14:21 92 01/18/20 14:20 01/18/20 14:15 93 01/18/20 14:01 91 01/18/20 13:45 94 01/18/20 13:31 95 01/18/20 13:15 01/18/20 13:01 92 01/18/20 12:45 96 01/18/20 12:31 100 01/18/20 12:15 98 01/18/20 12:14 97 - Physical Examination HEENT: Positive: PERRL Neck: Positive: Other (vent to trach) Cardiac: Positive: Reg Rate and Rhythm - Labs and Meds CBC 01/19/20 Range/Units 05:45 WBC 7.8 (4.5-11.0) K/mm3 RBC 3.30 L (3.65-5.03) M/mm3 Hgb 8.1 L (11.8-15.2) gm/dl Hct 27.2 L (35.5-45.6) % Plt Count 387 (140-440) K/mm3 Lymph # 0.8 L (1.2-5.4) K/mm3 [place] # 1.0 H (0.0-0.8) K/mm3 Eos # 0.6 H (0.0-0.4) K/mm3 Baso # 0.0 (0.0-0.1) K/mm3 Comprehensive Metabolic Panel 01/19/20 Range/Units 05:45 Sodium 144 (137-145) mmol/L Potassium 4.6 (3.6-5.0) mmol/L Chloride 101.5 (98-107) mmol/L Carbon Dioxide 34 H (22-30) mmol/L BUN 15 (9-20) mg/dL Creatinine 0.9 (0.8-1.5) mg/dL Glucose 167 H (75-100) mg/dL Calcium 8.6 (8.4-10.2) mg/dL - Allied health notes Allied health notes reviewed: nursing
--- NOTE | 2020-01-19 13:04 | Progress Note ---
Assessment and Plan 59 yo M s/p trach/PEG, POD 1 1. continue TF as tolerated 2. trach care 3. wean vent per pulmonary critical care 4. may remove trach sutures 01/23/20 Will s/o Thank you, please call with questions. Subjective Date of service: 01/19/20 Narrative: Pt seen and examined. No overnight events. No f/c. Objective Vital Signs - 12hr 01/19/20 01/19/20 01/19/20 01:15 01:30 01:45 Temperature Pulse Rate 77 77 72 Pulse Rate [ Bilateral] Respiratory 14 14 14 Rate Respiratory Rate [Bilateral ] Blood Pressure 124/49 145/78 124/56 O2 Sat by Pulse 94 95 95 Oximetry O2 Sat by Pulse Oximetry [ Assessment] 01/19/20 01/19/20 01/19/20 02:01 02:15 02:30 Temperature Pulse Rate 73 88 75 Pulse Rate [ Bilateral] Respiratory 14 14 14 Rate Respiratory Rate [Bilateral ] Blood Pressure 107/61 153/96 150/65 O2 Sat by Pulse 95 91 96 Oximetry O2 Sat by Pulse Oximetry [ Assessment] 01/19/20 01/19/20 01/19/20 02:45 03:00 03:15 Temperature Pulse Rate 73 69 81 Pulse Rate [ Bilateral] Respiratory 14 14 15 Rate Respiratory Rate [Bilateral ] Blood Pressure 124/50 118/59 159/85 O2 Sat by Pulse 95 96 88 Oximetry O2 Sat by Pulse Oximetry [ Assessment] 01/19/20 01/19/20 01/19/20 03:30 03:45 03:56 Temperature Pulse Rate 86 88 Pulse Rate [ Bilateral] Respiratory 13 21 Rate Respiratory Rate [Bilateral ] Blood Pressure 173/138 166/86 O2 Sat by Pulse 87 97 Oximetry O2 Sat by Pulse 95 Oximetry [ Assessment] 01/19/20 01/19/20 01/19/20 03:58 04:00 04:01 Temperature 97.1 F L Pulse Rate 74 76 80 Pulse Rate [ Bilateral] Respiratory 13 Rate Respiratory Rate [Bilateral ] Blood Pressure 143/77 143/77 O2 Sat by Pulse 96 97 Oximetry O2 Sat by Pulse Oximetry [ Assessment] 01/19/20 01/19/20 01/19/20 04:15 04:30 04:45 Temperature Pulse Rate 73 75 85 Pulse Rate [ Bilateral] Respiratory 14 14 14 Rate Respiratory Rate [Bilateral ] Blood Pressure 119/61 111/59 162/82 O2 Sat by Pulse 93 96 95 Oximetry O2 Sat by Pulse Oximetry [ Assessment] 01/19/20 01/19/20 01/19/20 05:00 05:15 05:30 Temperature Pulse Rate 70 81 69 Pulse Rate [ Bilateral] Respiratory 14 11 L 14 Rate Respiratory Rate [Bilateral ] Blood Pressure 118/51 150/80 146/77 O2 Sat by Pulse 98 94 Oximetry O2 Sat by Pulse Oximetry [ Assessment] 01/19/20 01/19/20 01/19/20 05:45 06:00 06:15 Temperature Pulse Rate 68 66 66 Pulse Rate [ Bilateral] Respiratory 14 14 14 Rate Respiratory Rate [Bilateral ] Blood Pressure 120/74 125/69 121/73 O2 Sat by Pulse 94 95 96 Oximetry O2 Sat by Pulse Oximetry [ Assessment] 01/19/20 01/19/20 01/19/20 06:30 06:45 07:00 Temperature Pulse Rate 60 61 85 Pulse Rate [ Bilateral] Respiratory 14 14 13 Rate Respiratory Rate [Bilateral ] Blood Pressure 126/64 135/70 139/96 O2 Sat by Pulse 95 96 96 Oximetry O2 Sat by Pulse Oximetry [ Assessment] 01/19/20 01/19/20 01/19/20 07:15 07:30 07:45 Temperature Pulse Rate 61 65 70 Pulse Rate [ Bilateral] Respiratory 14 14 14 Rate Respiratory Rate [Bilateral ] Blood Pressure 122/60 126/67 126/67 O2 Sat by Pulse 97 Oximetry O2 Sat by Pulse Oximetry [ Assessment] 01/19/20 01/19/20 01/19/20 08:00 08:01 08:15 Temperature 97.5 F L Pulse Rate 61 61 Pulse Rate [ Bilateral] Respiratory 14 14 Rate Respiratory Rate [Bilateral ] Blood Pressure 131/64 152/77 O2 Sat by Pulse 95 98 Oximetry O2 Sat by Pulse Oximetry [ Assessment] 01/19/20 01/19/20 01/19/20 08:31 08:45 09:00 Temperature Pulse Rate 60 58 L 60 Pulse Rate [ Bilateral] Respiratory 14 14 14 Rate Respiratory Rate [Bilateral ] Blood Pressure 124/62 121/79 O2 Sat by Pulse 96 96 97 Oximetry O2 Sat by Pulse Oximetry [ Assessment] 01/19/20 01/19/20 01/19/20 09:15 09:30 09:31 Temperature Pulse Rate 59 L 63 Pulse Rate [ 69 Bilateral] Respiratory 14 15 Rate Respiratory 14 Rate [Bilateral ] Blood Pressure 140/75 140/75 O2 Sat by Pulse 96 94 Oximetry O2 Sat by Pulse Oximetry [ Assessment] 01/19/20 01/19/20 01/19/20 09:33 09:34 09:45 Temperature Pulse Rate 58 L 62 Pulse Rate [ Bilateral] Respiratory 15 Rate Respiratory Rate [Bilateral ] Blood Pressure 130/82 131/83 O2 Sat by Pulse 97 95 Oximetry O2 Sat by Pulse 97 Oximetry [ Assessment] 01/19/20 01/19/20 01/19/20 10:00 10:15 10:30 Temperature Pulse Rate 62 64 75 Pulse Rate [ Bilateral] Respiratory 14 14 14 Rate Respiratory Rate [Bilateral ] Blood Pressure 144/75 136/72 133/89 O2 Sat by Pulse 95 96 96 Oximetry O2 Sat by Pulse Oximetry [ Assessment] 01/19/20 01/19/20 01/19/20 10:45 11:00 11:16 Temperature Pulse Rate 64 61 75 Pulse Rate [ Bilateral] Respiratory 14 14 14 Rate Respiratory Rate [Bilateral ] Blood Pressure 122/80 130/76 155/86 O2 Sat by Pulse 97 98 92 Oximetry O2 Sat by Pulse Oximetry [ Assessment] 01/19/20 01/19/20 01/19/20 11:17 11:30 11:45 Temperature Pulse Rate 65 61 56 L Pulse Rate [ Bilateral] Respiratory 14 14 Rate Respiratory Rate [Bilateral ] Blood Pressure 155/86 155/86 142/70 O2 Sat by Pulse 96 98 Oximetry O2 Sat by Pulse Oximetry [ Assessment] 01/19/20 01/19/20 12:00 12:15 Temperature Pulse Rate 63 63 Pulse Rate [ Bilateral] Respiratory 14 15 Rate Respiratory Rate [Bilateral ] Blood Pressure 145/77 153/81 O2 Sat by Pulse 98 100 Oximetry O2 Sat by Pulse Oximetry [ Assessment] - General physical appearance Narrative Exam: Gen: Awake. Does not follow commands. Eyes open spontaneously. NAD ENT: trach in place, no swelling. CV: S1, S2+ Res: on vent Abd: soft, distended, protuberant, NT. PEG in place, bumper at 3cm. No bleeding - Labs 01/19/20 05:45 01/19/20 05:45 Diabetes panel 01/19/20 Range/Units 05:45 Sodium 144 (137-145) mmol/L Potassium 4.6 (3.6-5.0) mmol/L Chloride 101.5 (98-107) mmol/L Carbon Dioxide 34 H (22-30) mmol/L BUN 15 (9-20) mg/dL Creatinine 0.9 (0.8-1.5) mg/dL Glucose 167 H (75-100) mg/dL Calcium 8.6 (8.4-10.2) mg/dL Calcium panel 01/19/20 Range/Units 05:45 Calcium 8.6 (8.4-10.2) mg/dL Pituitary panel 01/19/20 Range/Units 05:45 Sodium 144 (137-145) mmol/L Potassium 4.6 (3.6-5.0) mmol/L Chloride 101.5 (98-107) mmol/L Carbon Dioxide 34 H (22-30) mmol/L BUN 15 (9-20) mg/dL Creatinine 0.9 (0.8-1.5) mg/dL Glucose 167 H (75-100) mg/dL Calcium 8.6 (8.4-10.2) mg/dL Adrenal panel 01/19/20 Range/Units 05:45 Sodium 144 (137-145) mmol/L Potassium 4.6 (3.6-5.0) mmol/L Chloride 101.5 (98-107) mmol/L Carbon Dioxide 34 H (22-30) mmol/L BUN 15 (9-20) mg/dL Creatinine 0.9 (0.8-1.5) mg/dL Glucose 167 H (75-100) mg/dL Calcium 8.6 (8.4-10.2) mg/dL
[2020-01-19] MEDS: DOPamine/D5W 800 MG/250 ML 800 MG/250 ML BAG IV SCH (13:32)
--- NOTE | 2020-01-19 16:48 | Progress Note ---
Assessment and Plan Acute Hypoxemic Respiratory Failure Severe Sepsis with Shock Bilateral Pneumonia Bradycardia JAGDEEP secondary to ATN, non oliguric Hypernatremia Morbid Obesity H/O CHF JOE - s/p Trach and PEG placement -CXR and ABG prn -Continue Free water at 250 cc q4 while monitoring sodium levels -Stop D5 water at 50ml/hour, improving hypernatremia -Continue to monitor off antibiotics, trend temperature curve and WCC -Continue with bowel regimen -Daily SAT and SBT assessment as tolerated -Continue care as below otherwise -Discharge planning - accuchecks with glycemic control per SSI (While critically ill target blood glucose of 140-180 mg/dL; avoid hypoglycemia) - sedation for target RASS 0 to -1 - continue to wean supplemental oxygen for target O2 sat's > 92% - continue bronchodilators with pulmonary hygiene per RT - VAP bundle addressed - lung protective strategies - wean per pulmonary driven protocols otherwise - continue to avoid benzodiazepines, reduce the possibility of delirium - prn analgesia per CPOT score - Maintenance of sleep-wake cycle - continue enteral nutritional support at goal rate as tolerated - G.I. & VTE prophylaxis - PT/OT/ROM exercises - continue mobility protocols for pressure ulcer prophylaxis - repeat COVID-19 test negative - continue aspiration precautions - Monitor hemodynamics closely - continue other care per attending / other consultants .... Re-evaluate in am & prn CONDITION: CRITICAL PROGNOSIS: GUARDED CODE STATUS: FULL CODE The high probability of a clinically significant, sudden or life-threatening deterioration of the [respiratory, cardiovascular, GI & neurologic] system(s) required my full and direct attention, intervention and personal management. The aggregate critical care time was [31] minutes without overlap. Time includes spent on; [x] Data Review and interpretation [x] Patient assessment and monitoring of vital signs [x] Documentation [x] Medication orders and management Subjective Date of service: 01/19/20 Principal diagnosis: Ac. Hypoxemic Resp Failure; Septic Shock; Magdiel. PNA; PUI COVID-19; CHF; JOE Interval history: Patient is seen today for: Acute Hypoxemic Respiratory Failure; Severe Sepsis with Shock; Bilateral Pneumonia; PUI COVID-19; Morbid Obesity; H/O CHF; JOE Seen and examined at bedside; 24hour events reviewed; nursing and respiratory care staff consulted; no adverse overnight events reported to me; resting peacefully in bed; remains on MVS; No fevers, s/p trach and PEG placement- was hypotensive post procedure, but RN was able to wean off dopamine at 4pm Objective Vital Signs - 12hr 01/19/20 01/19/20 01/19/20 05:00 05:15 05:30 Temperature Pulse Rate 70 81 69 Pulse Rate [ Bilateral] Pulse Rate [ From Monitor] Respiratory 14 11 L 14 Rate Respiratory Rate [Bilateral ] Blood Pressure 118/51 150/80 146/77 O2 Sat by Pulse 98 94 Oximetry O2 Sat by Pulse Oximetry [ Assessment] 01/19/20 01/19/20 01/19/20 05:45 06:00 06:15 Temperature Pulse Rate 68 66 66 Pulse Rate [ Bilateral] Pulse Rate [ From Monitor] Respiratory 14 14 14 Rate Respiratory Rate [Bilateral ] Blood Pressure 120/74 125/69 121/73 O2 Sat by Pulse 94 95 96 Oximetry O2 Sat by Pulse Oximetry [ Assessment] 01/19/20 01/19/20 01/19/20 06:30 06:45 07:00 Temperature Pulse Rate 60 61 85 Pulse Rate [ Bilateral] Pulse Rate [ From Monitor] Respiratory 14 14 13 Rate Respiratory Rate [Bilateral ] Blood Pressure 126/64 135/70 139/96 O2 Sat by Pulse 95 96 96 Oximetry O2 Sat by Pulse Oximetry [ Assessment] 01/19/20 01/19/20 01/19/20 07:15 07:30 07:45 Temperature Pulse Rate 61 65 70 Pulse Rate [ Bilateral] Pulse Rate [ From Monitor] Respiratory 14 14 14 Rate Respiratory Rate [Bilateral ] Blood Pressure 122/60 126/67 126/67 O2 Sat by Pulse 97 Oximetry O2 Sat by Pulse Oximetry [ Assessment] 01/19/20 01/19/20 01/19/20 08:00 08:01 08:15 Temperature 97.5 F L Pulse Rate 61 61 Pulse Rate [ Bilateral] Pulse Rate [ 62 From Monitor] Respiratory 14 14 14 Rate Respiratory Rate [Bilateral ] Blood Pressure 131/64 152/77 O2 Sat by Pulse 98 95 98 Oximetry O2 Sat by Pulse Oximetry [ Assessment] 01/19/20 01/19/20 01/19/20 08:31 08:45 09:00 Temperature Pulse Rate 60 58 L 60 Pulse Rate [ Bilateral] Pulse Rate [ From Monitor] Respiratory 14 14 14 Rate Respiratory Rate [Bilateral ] Blood Pressure 124/62 121/79 O2 Sat by Pulse 96 96 97 Oximetry O2 Sat by Pulse Oximetry [ Assessment] 01/19/20 01/19/20 01/19/20 09:15 09:30 09:31 Temperature Pulse Rate 59 L 63 Pulse Rate [ 69 Bilateral] Pulse Rate [ From Monitor] Respiratory 14 15 Rate Respiratory 14 Rate [Bilateral ] Blood Pressure 140/75 140/75 O2 Sat by Pulse 96 94 Oximetry O2 Sat by Pulse Oximetry [ Assessment] 01/19/20 01/19/20 01/19/20 09:33 09:34 09:45 Temperature Pulse Rate 58 L 62 Pulse Rate [ Bilateral] Pulse Rate [ From Monitor] Respiratory 15 Rate Respiratory Rate [Bilateral ] Blood Pressure 130/82 131/83 O2 Sat by Pulse 97 95 Oximetry O2 Sat by Pulse 97 Oximetry [ Assessment] 01/19/20 01/19/20 01/19/20 10:00 10:15 10:30 Temperature Pulse Rate 62 64 75 Pulse Rate [ Bilateral] Pulse Rate [ From Monitor] Respiratory 14 14 14 Rate Respiratory Rate [Bilateral ] Blood Pressure 144/75 136/72 133/89 O2 Sat by Pulse 95 96 96 Oximetry O2 Sat by Pulse Oximetry [ Assessment] 01/19/20 01/19/20 01/19/20 10:45 11:00 11:16 Temperature Pulse Rate 64 61 75 Pulse Rate [ Bilateral] Pulse Rate [ From Monitor] Respiratory 14 14 14 Rate Respiratory Rate [Bilateral ] Blood Pressure 122/80 130/76 155/86 O2 Sat by Pulse 97 98 92 Oximetry O2 Sat by Pulse Oximetry [ Assessment] 01/19/20 01/19/20 01/19/20 11:17 11:30 11:45 Temperature Pulse Rate 65 61 56 L Pulse Rate [ Bilateral] Pulse Rate [ From Monitor] Respiratory 14 14 Rate Respiratory Rate [Bilateral ] Blood Pressure 155/86 155/86 142/70 O2 Sat by Pulse 96 98 Oximetry O2 Sat by Pulse Oximetry [ Assessment] 01/19/20 01/19/20 01/19/20 12:00 12:15 12:30 Temperature 97.8 F Pulse Rate 63 63 56 L Pulse Rate [ Bilateral] Pulse Rate [ 65 From Monitor] Respiratory 14 15 14 Rate Respiratory Rate [Bilateral ] Blood Pressure 145/77 153/81 160/82 O2 Sat by Pulse 98 100 97 Oximetry O2 Sat by Pulse Oximetry [ Assessment] 01/19/20 01/19/20 01/19/20 12:46 13:00 13:15 Temperature Pulse Rate 68 58 L 57 L Pulse Rate [ Bilateral] Pulse Rate [ From Monitor] Respiratory 16 14 14 Rate Respiratory Rate [Bilateral ] Blood Pressure 105/57 111/57 111/56 O2 Sat by Pulse 95 97 97 Oximetry O2 Sat by Pulse Oximetry [ Assessment] 01/19/20 01/19/20 01/19/20 13:30 13:45 14:00 Temperature Pulse Rate 82 54 L 53 L Pulse Rate [ 83 Bilateral] Pulse Rate [ From Monitor] Respiratory 12 14 14 Rate Respiratory 20 Rate [Bilateral ] Blood Pressure 124/89 145/74 159/76 O2 Sat by Pulse 96 97 98 Oximetry O2 Sat by Pulse Oximetry [ Assessment] 01/19/20 01/19/20 01/19/20 14:15 14:30 14:46 Temperature Pulse Rate 72 67 80 Pulse Rate [ Bilateral] Pulse Rate [ From Monitor] Respiratory 17 15 13 Rate Respiratory Rate [Bilateral ] Blood Pressure 172/93 181/89 171/88 O2 Sat by Pulse 93 96 96 Oximetry O2 Sat by Pulse Oximetry [ Assessment] 01/19/20 01/19/20 15:00 16:00 Temperature Pulse Rate 70 68 Pulse Rate [ Bilateral] Pulse Rate [ From Monitor] Respiratory 14 Rate Respiratory Rate [Bilateral ] Blood Pressure 116/59 103/68 O2 Sat by Pulse 98 97 Oximetry O2 Sat by Pulse Oximetry [ Assessment] Constitutional: no acute distress, asleep (but rousable), other (elderly obese AAM with mildly increased respiratory effort s/p Trach ) Eyes: non-icteric ENT: oropharynx moist, other (ETT 24 cm KOLBY) Neck: supple, no lymphadenopathy, no JVD Effort: normal Ascultation: Bilateral: diminished breath sounds, rhonchi, other (diminished bibasilar air entry) Percussion: Bilateral: not dull Cardiovascular: regular rate and rhythm (Bradycardia), other (S1,S2) Gastrointestinal: normoactive bowel sounds, soft, non-tender, other (protuberant) Integumentary: rash (stasis dermatyitis) Extremities: no cyanosis, pink and warm, pulses normal, no ischemia or petechiae, edema (trace) Neurologic: pupils equal and round, other (awake, responds to tactile and verbal stimuli) Psychiatric: other (unable to assess) CBC and BMP: 01/19/20 05:45 01/19/20 05:45 ABG, PT/INR, D-dimer: ABG ABG pH 7.223 pH Units (7.350-7.450) L 01/13/20 15:10 ABG pCO2 82.3 mm Hg 01/13/20 15:10 ABG pO2 81.4 mm Hg (80.0-90.0) 01/13/20 15:10 ABG O2 Saturation 94.7 % (95.0-99.0) L 01/13/20 15:10 PT/INR, D-dimer PT 13.3 Sec. (12.2-14.9) 01/18/20 04:45 INR 1.03 (0.87-1.13) 01/18/20 04:45 D-Dimer 534.45 ng/mlDDU (0-234) H 12/18/19 14:45 Abnormal lab findings: Abnormal Labs 12/18/19 12/18/19 12/18/19 12:23 14:45 14:45 WBC RBC Hgb 10.4 L Hct 35.2 L MCV MCH 25 L MCHC 30 L RDW 18.8 H Plt Count Lymph % (Auto) [place] % (Auto) 11.6 H Eos % (Auto) 4.8 H Baso % (Auto) Lymph # [place] # 1.0 H Eos # Baso # Seg Neutrophils % Monocytes % (Manual) Monocytes # (Manual) D-Dimer ABG pH ABG pO2 ABG HCO3 ABG O2 Saturation ABG Base Excess ABG Hemoglobin Oxyhemoglobin Sodium Potassium Chloride Carbon Dioxide BUN Creatinine Glucose POC Glucose 328 H Lactic Acid Calcium Magnesium AST ALT Lactate Dehydrogenase Total Creatine Kinase 40 L C-Reactive Protein Total Protein Albumin Free T4 Urine WBC (Auto) Urine Total Protein Digoxin Salicylates Acetaminophen 12/18/19 12/18/19 12/18/19 14:45 14:45 14:45 WBC RBC Hgb Hct MCV MCH MCHC RDW Plt Count Lymph % (Auto) [place] % (Auto) Eos % (Auto) Baso % (Auto) Lymph # [place] # Eos # Baso # Seg Neutrophils % Monocytes % (Manual) Monocytes # (Manual) D-Dimer 534.45 H ABG pH ABG pO2 ABG HCO3 ABG O2 Saturation ABG Base Excess ABG Hemoglobin Oxyhemoglobin Sodium 156 H Potassium Chloride 112.3 H Carbon Dioxide 31 H BUN 32 H Creatinine Glucose 328 H POC Glucose Lactic Acid Calcium Magnesium AST ALT Lactate Dehydrogenase 235 H Total Creatine Kinase C-Reactive Protein 8.50 H Total Protein Albumin 3.6 L Free T4 Urine WBC (Auto) Urine Total Protein Digoxin 0.3 L Salicylates < 0.3 L Acetaminophen 12/18/19 12/18/19 12/18/19 14:45 14:45 16:00 WBC RBC Hgb Hct MCV MCH MCHC RDW Plt Count Lymph % (Auto) [place] % (Auto) Eos % (Auto) Baso % (Auto) Lymph # [place] # Eos # Baso # Seg Neutrophils % Monocytes % (Manual) Monocytes # (Manual) D-Dimer ABG pH ABG pO2 69.8 L ABG HCO3 31.8 H ABG O2 Saturation ABG Base Excess 5.4 H ABG Hemoglobin 10.0 L Oxyhemoglobin 92.9 L Sodium Potassium Chloride Carbon Dioxide BUN Creatinine Glucose 314 H POC Glucose Lactic Acid Calcium Magnesium AST ALT Lactate Dehydrogenase 236 H Total Creatine Kinase C-Reactive Protein 8.40 H Total Protein Albumin Free T4 Urine WBC (Auto) Urine Total Protein Digoxin Salicylates Acetaminophen < 5.0 L 12/18/19 12/18/19 12/18/19 16:35 18:30 22:56 WBC RBC Hgb Hct MCV MCH MCHC RDW Plt Count Lymph % (Auto) [place] % (Auto) Eos % (Auto) Baso % (Auto) Lymph # [place] # Eos # Baso # Seg Neutrophils % Monocytes % (Manual) Monocytes # (Manual) D-Dimer ABG pH ABG pO2 ABG HCO3 ABG O2 Saturation ABG Base Excess ABG Hemoglobin Oxyhemoglobin Sodium Potassium Chloride Carbon Dioxide BUN Creatinine Glucose POC Glucose 310 H 353 H Lactic Acid 2.50 H* Calcium Magnesium AST ALT Lactate Dehydrogenase Total Creatine Kinase C-Reactive Protein Total Protein Albumin Free T4 Urine WBC (Auto) Urine Total Protein Digoxin Salicylates Acetaminophen 12/19/19 12/19/19 12/19/19 04:13 04:13 06:00 WBC RBC Hgb 10.0 L Hct 34.2 L MCV MCH 25 L MCHC 29 L RDW 19.0 H Plt Count Lymph % (Auto) [place] % (Auto) 10.1 H Eos % (Auto) Baso % (Auto) Lymph # [place] # 1.1 H Eos # Baso # Seg Neutrophils % 71.8 H Monocytes % (Manual) Monocytes # (Manual) D-Dimer ABG pH ABG pO2 186.5 H ABG HCO3 27.8 H ABG O2 Saturation 99.1 H ABG Base Excess ABG Hemoglobin 10.4 L Oxyhemoglobin Sodium 157 H Potassium Chloride 119.1 H Carbon Dioxide BUN 26 H Creatinine Glucose 302 H POC Glucose Lactic Acid Calcium 7.9 L Magnesium AST 85 H ALT 61 H Lactate Dehydrogenase Total Creatine Kinase C-Reactive Protein Total Protein Albumin 3.0 L Free T4 Urine WBC (Auto) Urine Total Protein Digoxin Salicylates Acetaminophen 12/19/19 12/19/19 12/19/19 08:30 11:55 16:50 WBC RBC Hgb Hct MCV MCH MCHC RDW Plt Count Lymph % (Auto) [place] % (Auto) Eos % (Auto) Baso % (Auto) Lymph # [place] # Eos # Baso # Seg Neutrophils % Monocytes % (Manual) Monocytes # (Manual) D-Dimer ABG pH ABG pO2 ABG HCO3 ABG O2 Saturation ABG Base Excess ABG Hemoglobin Oxyhemoglobin Sodium Potassium Chloride Carbon Dioxide BUN Creatinine Glucose POC Glucose 264 H 251 H Lactic Acid Calcium Magnesium AST ALT Lactate Dehydrogenase Total Creatine Kinase C-Reactive Protein Total Protein Albumin Free T4 Urine WBC (Auto) 7.0 H Urine Total Protein Digoxin Salicylates Acetaminophen 12/19/19 12/19/19 12/20/19 17:41 23:42 03:35 WBC RBC Hgb Hct MCV MCH MCHC RDW Plt Count Lymph % (Auto) [place] % (Auto) Eos % (Auto) Baso % (Auto) Lymph # [place] # Eos # Baso # Seg Neutrophils % Monocytes % (Manual) Monocytes # (Manual) D-Dimer ABG pH ABG pO2 ABG HCO3 27.7 H ABG O2 Saturation ABG Base Excess ABG Hemoglobin 11.6 L Oxyhemoglobin 94.9 L Sodium Potassium Chloride Carbon Dioxide BUN Creatinine Glucose POC Glucose 180 H 205 H Lactic Acid Calcium Magnesium AST ALT Lactate Dehydrogenase Total Creatine Kinase C-Reactive Protein Total Protein Albumin Free T4 Urine WBC (Auto) Urine Total Protein Digoxin Salicylates Acetaminophen 12/20/19 12/20/19 12/20/19 04:45 04:45 05:27 WBC RBC Hgb 9.4 L Hct 31.4 L MCV MCH 25 L MCHC 30 L RDW 19.4 H Plt Count Lymph % (Auto) [place] % (Auto) 10.2 H Eos % (Auto) 6.0 H Baso % (Auto) Lymph # 0.9 L [place] # Eos # Baso # Seg Neutrophils % Monocytes % (Manual) Monocytes # (Manual) D-Dimer ABG pH ABG pO2 ABG HCO3 ABG O2 Saturation ABG Base Excess ABG Hemoglobin Oxyhemoglobin Sodium 153 H Potassium Chloride 114.6 H Carbon Dioxide BUN Creatinine Glucose 170 H POC Glucose 188 H Lactic Acid Calcium 7.9 L Magnesium AST ALT Lactate Dehydrogenase Total Creatine Kinase C-Reactive Protein Total Protein Albumin Free T4 Urine WBC (Auto) Urine Total Protein Digoxin Salicylates Acetaminophen 12/20/19 12/20/19 12/21/19 12:26 18:20 00:20 WBC RBC Hgb Hct MCV MCH MCHC RDW Plt Count Lymph % (Auto) [place] % (Auto) Eos % (Auto) Baso % (Auto) Lymph # [place] # Eos # Baso # Seg Neutrophils % Monocytes % (Manual) Monocytes # (Manual) D-Dimer ABG pH ABG pO2 ABG HCO3 ABG O2 Saturation ABG Base Excess ABG Hemoglobin Oxyhemoglobin Sodium Potassium Chloride Carbon Dioxide BUN Creatinine Glucose POC Glucose 200 H 263 H 218 H Lactic Acid Calcium Magnesium AST ALT Lactate Dehydrogenase Total Creatine Kinase C-Reactive Protein Total Protein Albumin Free T4 Urine WBC (Auto) Urine Total Protein Digoxin Salicylates Acetaminophen 12/21/19 12/21/19 12/21/19 04:38 05:26 12:35 WBC RBC Hgb Hct MCV MCH MCHC RDW Plt Count Lymph % (Auto) [place] % (Auto) Eos % (Auto) Baso % (Auto) Lymph # [place] # Eos # Baso # Seg Neutrophils % Monocytes % (Manual) Monocytes # (Manual) D-Dimer ABG pH ABG pO2 ABG HCO3 ABG O2 Saturation ABG Base Excess ABG Hemoglobin Oxyhemoglobin Sodium 149 H Potassium 3.5 L Chloride 110.5 H Carbon Dioxide BUN Creatinine Glucose 158 H POC Glucose 193 H 193 H Lactic Acid Calcium Magnesium AST ALT Lactate Dehydrogenase Total Creatine Kinase C-Reactive Protein Total Protein Albumin Free T4 Urine WBC (Auto) Urine Total Protein Digoxin Salicylates Acetaminophen 12/21/19 12/22/19 12/22/19 18:29 00:03 05:15 WBC RBC Hgb 10.3 L Hct 34.7 L MCV MCH 25 L MCHC 30 L RDW 19.4 H Plt Count Lymph % (Auto) 9.0 L [place] % (Auto) 12.3 H Eos % (Auto) 5.0 H Baso % (Auto) Lymph # 0.5 L [place] # Eos # Baso # Seg Neutrophils % 73.2 H Monocytes % (Manual) Monocytes # (Manual) D-Dimer ABG pH ABG pO2 ABG HCO3 ABG O2 Saturation ABG Base Excess ABG Hemoglobin Oxyhemoglobin Sodium Potassium Chloride Carbon Dioxide BUN Creatinine Glucose POC Glucose 186 H 143 H Lactic Acid Calcium Magnesium AST ALT Lactate Dehydrogenase Total Creatine Kinase C-Reactive Protein Total Protein Albumin Free T4 Urine WBC (Auto) Urine Total Protein Digoxin Salicylates Acetaminophen 12/22/19 12/22/19 12/22/19 05:15 06:02 12:13 WBC RBC Hgb Hct MCV MCH MCHC RDW Plt Count Lymph % (Auto) [place] % (Auto) Eos % (Auto) Baso % (Auto) Lymph # [place] # Eos # Baso # Seg Neutrophils % Monocytes % (Manual) Monocytes # (Manual) D-Dimer ABG pH ABG pO2 ABG HCO3 ABG O2 Saturation ABG Base Excess ABG Hemoglobin Oxyhemoglobin Sodium 152 H Potassium Chloride 113.5 H Carbon Dioxide BUN Creatinine Glucose 126 H POC Glucose 144 H 159 H Lactic Acid Calcium Magnesium AST ALT Lactate Dehydrogenase Total Creatine Kinase C-Reactive Protein Total Protein Albumin Free T4 Urine WBC (Auto) Urine Total Protein Digoxin Salicylates Acetaminophen 12/22/19 12/22/19 12/23/19 18:03 23:50 05:27 WBC RBC Hgb Hct MCV MCH MCHC RDW Plt Count Lymph % (Auto) [place] % (Auto) Eos % (Auto) Baso % (Auto) Lymph # [place] # Eos # Baso # Seg Neutrophils % Monocytes % (Manual) Monocytes # (Manual) D-Dimer ABG pH ABG pO2 ABG HCO3 ABG O2 Saturation ABG Base Excess ABG Hemoglobin Oxyhemoglobin Sodium Potassium Chloride Carbon Dioxide BUN Creatinine Glucose POC Glucose 140 H 227 H 185 H Lactic Acid Calcium Magnesium AST ALT Lactate Dehydrogenase Total Creatine Kinase C-Reactive Protein Total Protein Albumin Free T4 Urine WBC (Auto) Urine Total Protein Digoxin Salicylates Acetaminophen 12/23/19 12/23/19 12/23/19 12:13 16:05 16:40 WBC RBC Hgb Hct MCV MCH MCHC RDW Plt Count Lymph % (Auto) [place] % (Auto) Eos % (Auto) Baso % (Auto) Lymph # [place] # Eos # Baso # Seg Neutrophils % Monocytes % (Manual) Monocytes # (Manual) D-Dimer ABG pH 7.259 L ABG pO2 76.2 L ABG HCO3 30.6 H ABG O2 Saturation 94.6 L ABG Base Excess ABG Hemoglobin 11.5 L Oxyhemoglobin 92.2 L Sodium 163 H* D Potassium 3.4 L Chloride 120.1 H Carbon Dioxide BUN Creatinine Glucose 162 H POC Glucose 132 H Lactic Acid Calcium Magnesium AST ALT Lactate Dehydrogenase Total Creatine Kinase C-Reactive Protein Total Protein Albumin Free T4 Urine WBC (Auto) Urine Total Protein Digoxin Salicylates Acetaminophen 12/23/19 12/24/19 12/24/19 17:53 00:48 04:20 WBC RBC Hgb Hct MCV MCH MCHC RDW Plt Count Lymph % (Auto) [place] % (Auto) Eos % (Auto) Baso % (Auto) Lymph # [place] # Eos # Baso # Seg Neutrophils % Monocytes % (Manual) Monocytes # (Manual) D-Dimer ABG pH ABG pO2 ABG HCO3 30.4 H ABG O2 Saturation ABG Base Excess 3.9 H ABG Hemoglobin 10.3 L Oxyhemoglobin 94.4 L Sodium Potassium Chloride Carbon Dioxide BUN Creatinine Glucose POC Glucose 180 H 174 H Lactic Acid Calcium Magnesium AST ALT Lactate Dehydrogenase Total Creatine Kinase C-Reactive Protein Total Protein Albumin Free T4 Urine WBC (Auto) Urine Total Protein Digoxin Salicylates Acetaminophen 12/24/19 12/24/19 12/24/19 04:53 04:53 11:50 WBC RBC Hgb 9.7 L Hct 33.2 L MCV MCH 25 L MCHC 29 L RDW 20.1 H Plt Count Lymph % (Auto) [place] % (Auto) Eos % (Auto) Baso % (Auto) Lymph # [place] # Eos # Baso # Seg Neutrophils % Monocytes % (Manual) 15.0 H Monocytes # (Manual) 0.9 H D-Dimer ABG pH ABG pO2 ABG HCO3 ABG O2 Saturation ABG Base Excess ABG Hemoglobin Oxyhemoglobin Sodium 163 H* Potassium 3.2 L Chloride 122.6 H Carbon Dioxide BUN Creatinine Glucose 168 H POC Glucose 190 H Lactic Acid Calcium Magnesium AST ALT Lactate Dehydrogenase Total Creatine Kinase C-Reactive Protein Total Protein Albumin Free T4 Urine WBC (Auto) Urine Total Protein Digoxin Salicylates Acetaminophen 12/24/19 12/24/19 12/24/19 15:00 16:28 21:15 WBC RBC Hgb Hct MCV MCH MCHC RDW Plt Count Lymph % (Auto) [place] % (Auto) Eos % (Auto) Baso % (Auto) Lymph # [place] # Eos # Baso # Seg Neutrophils % Monocytes % (Manual) Monocytes # (Manual) D-Dimer ABG pH ABG pO2 ABG HCO3 ABG O2 Saturation ABG Base Excess ABG Hemoglobin Oxyhemoglobin Sodium 165 H* D 163 H* Potassium Chloride Carbon Dioxide BUN Creatinine Glucose POC Glucose 160 H Lactic Acid Calcium Magnesium AST ALT Lactate Dehydrogenase Total Creatine Kinase C-Reactive Protein Total Protein Albumin Free T4 Urine WBC (Auto) Urine Total Protein Digoxin Salicylates Acetaminophen 12/25/19 12/25/19 12/25/19 00:31 05:38 05:46 WBC RBC Hgb 9.7 L Hct 32.5 L MCV MCH 25 L MCHC 30 L RDW 19.4 H Plt Count Lymph % (Auto) [place] % (Auto) Eos % (Auto) Baso % (Auto) Lymph # [place] # Eos # Baso # Seg Neutrophils % Monocytes % (Manual) Monocytes # (Manual) D-Dimer ABG pH ABG pO2 ABG HCO3 ABG O2 Saturation ABG Base Excess ABG Hemoglobin Oxyhemoglobin Sodium Potassium Chloride Carbon Dioxide BUN Creatinine Glucose POC Glucose 182 H 194 H Lactic Acid Calcium Magnesium AST ALT Lactate Dehydrogenase Total Creatine Kinase C-Reactive Protein Total Protein Albumin Free T4 Urine WBC (Auto) Urine Total Protein Digoxin Salicylates Acetaminophen 12/25/19 12/25/19 12/25/19 05:46 11:35 11:38 WBC RBC Hgb Hct MCV MCH MCHC RDW Plt Count Lymph % (Auto) [place] % (Auto) Eos % (Auto) Baso % (Auto) Lymph # [place] # Eos # Baso # Seg Neutrophils % Monocytes % (Manual) Monocytes # (Manual) D-Dimer ABG pH 7.330 L ABG pO2 65.7 L ABG HCO3 32.6 H ABG O2 Saturation 92.5 L ABG Base Excess 5.3 H ABG Hemoglobin 10.4 L Oxyhemoglobin 90.0 L Sodium 166 H* Potassium 2.9 L* Chloride 124.5 H Carbon Dioxide BUN Creatinine Glucose 190 H POC Glucose 192 H Lactic Acid Calcium Magnesium AST ALT Lactate Dehydrogenase Total Creatine Kinase C-Reactive Protein Total Protein Albumin Free T4 Urine WBC (Auto) Urine Total Protein Digoxin Salicylates Acetaminophen 12/25/19 12/25/19 12/25/19 13:01 16:45 17:20 WBC RBC Hgb Hct MCV MCH MCHC RDW Plt Count Lymph % (Auto) [place] % (Auto) Eos % (Auto) Baso % (Auto) Lymph # [place] # Eos # Baso # Seg Neutrophils % Monocytes % (Manual) Monocytes # (Manual) D-Dimer ABG pH 7.296 L ABG pO2 101.5 H ABG HCO3 33.2 H ABG O2 Saturation ABG Base Excess 5.3 H ABG Hemoglobin 9.6 L Oxyhemoglobin 94.6 L Sodium 174 H* Potassium Chloride Carbon Dioxide BUN Creatinine Glucose POC Glucose Lactic Acid Calcium Magnesium AST ALT Lactate Dehydrogenase Total Creatine Kinase C-Reactive Protein Total Protein Albumin Free T4 Urine WBC (Auto) Urine Total Protein < 4 L Digoxin Salicylates Acetaminophen 12/25/19 12/25/19 12/26/19 17:48 18:50 00:43 WBC RBC Hgb Hct MCV MCH MCHC RDW Plt Count Lymph % (Auto) [place] % (Auto) Eos % (Auto) Baso % (Auto) Lymph # [place] # Eos # Baso # Seg Neutrophils % Monocytes % (Manual) Monocytes # (Manual) D-Dimer ABG pH ABG pO2 ABG HCO3 ABG O2 Saturation ABG Base Excess ABG Hemoglobin Oxyhemoglobin Sodium 166 H* 164 H* Potassium Chloride 127.3 H Carbon Dioxide BUN Creatinine Glucose 220 H POC Glucose 252 H Lactic Acid Calcium Magnesium AST ALT Lactate Dehydrogenase Total Creatine Kinase C-Reactive Protein Total Protein Albumin Free T4 Urine WBC (Auto) Urine Total Protein Digoxin Salicylates Acetaminophen 12/26/19 12/26/19 12/26/19 05:31 08:07 08:07 WBC 4.3 L RBC Hgb 9.6 L Hct 32.1 L MCV MCH 26 L MCHC 30 L RDW 20.5 H Plt Count Lymph % (Auto) [place] % (Auto) Eos % (Auto) Baso % (Auto) Lymph # [place] # Eos # Baso # Seg Neutrophils % Monocytes % (Manual) Monocytes # (Manual) D-Dimer ABG pH ABG pO2 ABG HCO3 ABG O2 Saturation ABG Base Excess ABG Hemoglobin Oxyhemoglobin Sodium 162 H* Potassium Chloride 122.1 H Carbon Dioxide BUN Creatinine Glucose 247 H POC Glucose 187 H Lactic Acid Calcium Magnesium AST ALT Lactate Dehydrogenase Total Creatine Kinase C-Reactive Protein Total Protein Albumin Free T4 Urine WBC (Auto) Urine Total Protein Digoxin Salicylates Acetaminophen 12/26/19 12/26/19 12/26/19 08:07 12:20 16:25 WBC RBC Hgb Hct MCV MCH MCHC RDW Plt Count Lymph % (Auto) [place] % (Auto) Eos % (Auto) Baso % (Auto) Lymph # [place] # Eos # Baso # Seg Neutrophils % Monocytes % (Manual) Monocytes # (Manual) D-Dimer ABG pH 7.290 L ABG pO2 73.2 L ABG HCO3 33.2 H ABG O2 Saturation 94.9 L ABG Base Excess 5.2 H ABG Hemoglobin 10.0 L Oxyhemoglobin 92.5 L Sodium 159 H Potassium Chloride Carbon Dioxide BUN Creatinine Glucose POC Glucose 234 H Lactic Acid Calcium Magnesium AST ALT Lactate Dehydrogenase Total Creatine Kinase C-Reactive Protein Total Protein Albumin Free T4 Urine WBC (Auto) Urine Total Protein Digoxin Salicylates Acetaminophen 12/26/19 12/26/19 12/26/19 17:33 22:35 23:30 WBC RBC Hgb Hct MCV MCH MCHC RDW Plt Count Lymph % (Auto) [place] % (Auto) Eos % (Auto) Baso % (Auto) Lymph # [place] # Eos # Baso # Seg Neutrophils % Monocytes % (Manual) Monocytes # (Manual) D-Dimer ABG pH ABG pO2 ABG HCO3 ABG O2 Saturation ABG Base Excess ABG Hemoglobin Oxyhemoglobin Sodium Potassium Chloride Carbon Dioxide BUN Creatinine Glucose POC Glucose 244 H 208 H 287 H Lactic Acid Calcium Magnesium AST ALT Lactate Dehydrogenase Total Creatine Kinase C-Reactive Protein Total Protein Albumin Free T4 Urine WBC (Auto) Urine Total Protein Digoxin Salicylates Acetaminophen 12/27/19 12/27/19 12/27/19 03:48 03:48 03:48 WBC RBC Hgb 10.1 L Hct 35.4 L MCV MCH 25 L MCHC 29 L RDW 20.1 H Plt Count Lymph % (Auto) [place] % (Auto) Eos % (Auto) Baso % (Auto) Lymph # [place] # Eos # Baso # Seg Neutrophils % Monocytes % (Manual) Monocytes # (Manual) D-Dimer ABG pH ABG pO2 ABG HCO3 ABG O2 Saturation ABG Base Excess ABG Hemoglobin Oxyhemoglobin Sodium 160 H Potassium Chloride 118.8 H Carbon Dioxide 33 H BUN Creatinine Glucose 217 H POC Glucose Lactic Acid Calcium Magnesium 2.70 H AST ALT Lactate Dehydrogenase Total Creatine Kinase C-Reactive Protein Total Protein Albumin Free T4 Urine WBC (Auto) Urine Total Protein Digoxin Salicylates Acetaminophen 12/27/19 12/27/19 12/27/19 05:50 11:58 16:05 WBC RBC Hgb Hct MCV MCH MCHC RDW Plt Count Lymph % (Auto) [place] % (Auto) Eos % (Auto) Baso % (Auto) Lymph # [place] # Eos # Baso # Seg Neutrophils % Monocytes % (Manual) Monocytes # (Manual) D-Dimer ABG pH 7.180 L* ABG pO2 73.6 L ABG HCO3 34.8 H ABG O2 Saturation 92.7 L ABG Base Excess 3.8 H ABG Hemoglobin 12.0 L Oxyhemoglobin 90.2 L Sodium Potassium Chloride Carbon Dioxide BUN Creatinine Glucose POC Glucose 224 H 218 H Lactic Acid Calcium Magnesium AST ALT Lactate Dehydrogenase Total Creatine Kinase C-Reactive Protein Total Protein Albumin Free T4 Urine WBC (Auto) Urine Total Protein Digoxin Salicylates Acetaminophen 12/27/19 12/27/19 12/27/19 18:05 19:50 21:53 WBC RBC Hgb Hct MCV MCH MCHC RDW Plt Count Lymph % (Auto) [place] % (Auto) Eos % (Auto) Baso % (Auto) Lymph # [place] # Eos # Baso # Seg Neutrophils % Monocytes % (Manual) Monocytes # (Manual) D-Dimer ABG pH 7.328 L ABG pO2 49.9 L ABG HCO3 33.3 H ABG O2 Saturation 87.1 L ABG Base Excess 5.7 H ABG Hemoglobin 11.2 L Oxyhemoglobin 84.8 L Sodium Potassium Chloride Carbon Dioxide BUN Creatinine Glucose POC Glucose 214 H 178 H Lactic Acid Calcium Magnesium AST ALT Lactate Dehydrogenase Total Creatine Kinase C-Reactive Protein Total Protein Albumin Free T4 Urine WBC (Auto) Urine Total Protein Digoxin Salicylates Acetaminophen 12/28/19 12/28/19 12/28/19 00:42 04:37 04:37 WBC RBC Hgb 9.8 L Hct 33.5 L MCV MCH 25 L MCHC 29 L RDW 21.1 H Plt Count Lymph % (Auto) [place] % (Auto) Eos % (Auto) Baso % (Auto) Lymph # [place] # Eos # Baso # Seg Neutrophils % Monocytes % (Manual) Monocytes # (Manual) D-Dimer ABG pH ABG pO2 ABG HCO3 ABG O2 Saturation ABG Base Excess ABG Hemoglobin Oxyhemoglobin Sodium 157 H Potassium 3.4 L Chloride 117.5 H Carbon Dioxide BUN Creatinine Glucose 193 H POC Glucose 157 H Lactic Acid Calcium Magnesium AST ALT Lactate Dehydrogenase Total Creatine Kinase C-Reactive Protein Total Protein Albumin Free T4 Urine WBC (Auto) Urine Total Protein Digoxin Salicylates Acetaminophen 12/28/19 12/28/19 12/28/19 04:52 05:19 12:05 WBC RBC Hgb Hct MCV MCH MCHC RDW Plt Count Lymph % (Auto) [place] % (Auto) Eos % (Auto) Baso % (Auto) Lymph # [place] # Eos # Baso # Seg Neutrophils % Monocytes % (Manual) Monocytes # (Manual) D-Dimer ABG pH ABG pO2 51.7 L ABG HCO3 28.7 H ABG O2 Saturation 89.9 L ABG Base Excess 4.1 H ABG Hemoglobin 9.7 L Oxyhemoglobin 87.7 L Sodium Potassium Chloride Carbon Dioxide BUN Creatinine Glucose POC Glucose 202 H 248 H Lactic Acid Calcium Magnesium AST ALT Lactate Dehydrogenase Total Creatine Kinase C-Reactive Protein Total Protein Albumin Free T4 Urine WBC (Auto) Urine Total Protein Digoxin Salicylates Acetaminophen 12/28/19 12/28/19 12/28/19 18:11 21:15 23:22 WBC RBC Hgb Hct MCV MCH MCHC RDW Plt Count Lymph % (Auto) [place] % (Auto) Eos % (Auto) Baso % (Auto) Lymph # [place] # Eos # Baso # Seg Neutrophils % Monocytes % (Manual) Monocytes # (Manual) D-Dimer ABG pH ABG pO2 ABG HCO3 ABG O2 Saturation ABG Base Excess ABG Hemoglobin Oxyhemoglobin Sodium Potassium Chloride Carbon Dioxide BUN Creatinine Glucose POC Glucose 226 H 217 H 227 H Lactic Acid Calcium Magnesium AST ALT Lactate Dehydrogenase Total Creatine Kinase C-Reactive Protein Total Protein Albumin Free T4 Urine WBC (Auto) Urine Total Protein Digoxin Salicylates Acetaminophen 12/29/19 12/29/19 12/29/19 04:09 04:59 04:59 WBC 11.1 H RBC Hgb 9.3 L Hct 31.1 L MCV 81 L MCH 24 L MCHC 30 L RDW 19.9 H Plt Count Lymph % (Auto) [place] % (Auto) Eos % (Auto) Baso % (Auto) Lymph # [place] # Eos # Baso # Seg Neutrophils % Monocytes % (Manual) Monocytes # (Manual) D-Dimer ABG pH 7.473 H ABG pO2 126.1 H ABG HCO3 29.2 H ABG O2 Saturation ABG Base Excess 5.1 H ABG Hemoglobin 8.4 L Oxyhemoglobin Sodium 157 H Potassium 3.2 L Chloride 118.2 H Carbon Dioxide BUN Creatinine 1.7 H Glucose 229 H POC Glucose Lactic Acid Calcium Magnesium AST ALT Lactate Dehydrogenase Total Creatine Kinase C-Reactive Protein Total Protein Albumin Free T4 Urine WBC (Auto) Urine Total Protein Digoxin Salicylates Acetaminophen 12/29/19 12/29/19 12/29/19 05:15 12:13 17:59 WBC RBC Hgb Hct MCV MCH MCHC RDW Plt Count Lymph % (Auto) [place] % (Auto) Eos % (Auto) Baso % (Auto) Lymph # [place] # Eos # Baso # Seg Neutrophils % Monocytes % (Manual) Monocytes # (Manual) D-Dimer ABG pH ABG pO2 ABG HCO3 ABG O2 Saturation ABG Base Excess ABG Hemoglobin Oxyhemoglobin Sodium Potassium Chloride Carbon Dioxide BUN Creatinine Glucose POC Glucose 221 H 392 H 365 H Lactic Acid Calcium Magnesium AST ALT Lactate Dehydrogenase Total Creatine Kinase C-Reactive Protein Total Protein Albumin Free T4 Urine WBC (Auto) Urine Total Protein Digoxin Salicylates Acetaminophen 12/29/19 12/29/19 12/30/19 20:25 23:38 04:45 WBC RBC Hgb Hct MCV MCH MCHC RDW Plt Count Lymph % (Auto) [place] % (Auto) Eos % (Auto) Baso % (Auto) Lymph # [place] # Eos # Baso # Seg Neutrophils % Monocytes % (Manual) Monocytes # (Manual) D-Dimer ABG pH 7.261 L 7.343 L ABG pO2 60.3 L 54.3 L ABG HCO3 32.1 H 30.9 H ABG O2 Saturation 87.6 L 88.3 L ABG Base Excess 3.7 H 4.0 H ABG Hemoglobin 9.7 L 11.6 L Oxyhemoglobin 85.2 L 86.0 L Sodium Potassium Chloride Carbon Dioxide BUN Creatinine Glucose POC Glucose 402 H Lactic Acid Calcium Magnesium AST ALT Lactate Dehydrogenase Total Creatine Kinase C-Reactive Protein Total Protein Albumin Free T4 Urine WBC (Auto) Urine Total Protein Digoxin Salicylates Acetaminophen 12/30/19 12/30/19 12/30/19 05:06 05:06 05:06 WBC 11.7 H RBC Hgb 9.4 L Hct 32.4 L MCV 83 L MCH 24 L MCHC 29 L RDW 20.2 H Plt Count Lymph % (Auto) [place] % (Auto) Eos % (Auto) Baso % (Auto) Lymph # [place] # Eos # Baso # Seg Neutrophils % Monocytes % (Manual) Monocytes # (Manual) D-Dimer ABG pH ABG pO2 ABG HCO3 ABG O2 Saturation ABG Base Excess ABG Hemoglobin Oxyhemoglobin Sodium 159 H Potassium 3.2 L Chloride 120.1 H Carbon Dioxide 31 H BUN Creatinine 1.9 H Glucose 404 H POC Glucose Lactic Acid Calcium Magnesium 2.60 H AST ALT Lactate Dehydrogenase Total Creatine Kinase C-Reactive Protein Total Protein Albumin Free T4 Urine WBC (Auto) Urine Total Protein Digoxin Salicylates Acetaminophen 12/30/19 12/30/19 12/30/19 06:26 12:29 13:44 WBC RBC Hgb Hct MCV MCH MCHC RDW Plt Count Lymph % (Auto) [place] % (Auto) Eos % (Auto) Baso % (Auto) Lymph # [place] # Eos # Baso # Seg Neutrophils % Monocytes % (Manual) Monocytes # (Manual) D-Dimer ABG pH ABG pO2 ABG HCO3 ABG O2 Saturation ABG Base Excess ABG Hemoglobin Oxyhemoglobin Sodium Potassium Chloride Carbon Dioxide BUN Creatinine Glucose POC Glucose 399 H 469 H > 500 H Lactic Acid Calcium Magnesium AST ALT Lactate Dehydrogenase Total Creatine Kinase C-Reactive Protein Total Protein Albumin Free T4 Urine WBC (Auto) Urine Total Protein Digoxin Salicylates Acetaminophen 12/30/19 12/30/19 12/30/19 13:51 16:32 18:05 WBC RBC Hgb Hct MCV MCH MCHC RDW Plt Count Lymph % (Auto) [place] % (Auto) Eos % (Auto) Baso % (Auto) Lymph # [place] # Eos # Baso # Seg Neutrophils % Monocytes % (Manual) Monocytes # (Manual) D-Dimer ABG pH ABG pO2 ABG HCO3 ABG O2 Saturation ABG Base Excess ABG Hemoglobin Oxyhemoglobin Sodium Potassium Chloride Carbon Dioxide BUN Creatinine Glucose POC Glucose > 500 H 445 H 429 H Lactic Acid Calcium Magnesium AST ALT Lactate Dehydrogenase Total Creatine Kinase C-Reactive Protein Total Protein Albumin Free T4 Urine WBC (Auto) Urine Total Protein Digoxin Salicylates Acetaminophen 12/30/19 12/30/19 12/31/19 21:42 Unknown 00:00 WBC RBC Hgb Hct MCV MCH MCHC RDW Plt Count Lymph % (Auto) [place] % (Auto) Eos % (Auto) Baso % (Auto) Lymph # [place] # Eos # Baso # Seg Neutrophils % Monocytes % (Manual) Monocytes # (Manual) D-Dimer ABG pH ABG pO2 ABG HCO3 ABG O2 Saturation ABG Base Excess ABG Hemoglobin Oxyhemoglobin Sodium Potassium Chloride Carbon Dioxide BUN Creatinine Glucose 498 H POC Glucose 371 H 452 H Lactic Acid Calcium Magnesium AST ALT Lactate Dehydrogenase Total Creatine Kinase C-Reactive Protein Total Protein Albumin Free T4 Urine WBC (Auto) Urine Total Protein Digoxin Salicylates Acetaminophen 12/31/19 12/31/19 12/31/19 04:31 05:42 08:01 WBC RBC Hgb Hct MCV MCH MCHC RDW Plt Count Lymph % (Auto) [place] % (Auto) Eos % (Auto) Baso % (Auto) Lymph # [place] # Eos # Baso # Seg Neutrophils % Monocytes % (Manual) Monocytes # (Manual) D-Dimer ABG pH 7.251 L ABG pO2 62.4 L ABG HCO3 31.1 H ABG O2 Saturation 88.7 L ABG Base Excess ABG Hemoglobin 8.7 L Oxyhemoglobin 86.4 L Sodium Potassium Chloride Carbon Dioxide BUN Creatinine Glucose POC Glucose 443 H 443 H Lactic Acid Calcium Magnesium AST ALT Lactate Dehydrogenase Total Creatine Kinase C-Reactive Protein Total Protein Albumin Free T4 Urine WBC (Auto) Urine Total Protein Digoxin Salicylates Acetaminophen 12/31/19 12/31/19 12/31/19 09:08 10:00 11:50 WBC RBC Hgb Hct MCV MCH MCHC RDW Plt Count Lymph % (Auto) [place] % (Auto) Eos % (Auto) Baso % (Auto) Lymph # [place] # Eos # Baso # Seg Neutrophils % Monocytes % (Manual) Monocytes # (Manual) D-Dimer ABG pH 7.325 L ABG pO2 97.2 H ABG HCO3 30.1 H ABG O2 Saturation ABG Base Excess 3.4 H ABG Hemoglobin 8.3 L Oxyhemoglobin 94.7 L Sodium 151 H D Potassium 3.2 L Chloride 113.0 H Carbon Dioxide BUN 23 H Creatinine 1.8 H Glucose 373 H POC Glucose 465 H Lactic Acid Calcium Magnesium AST ALT Lactate Dehydrogenase Total Creatine Kinase C-Reactive Protein Total Protein Albumin Free T4 Urine WBC (Auto) Urine Total Protein Digoxin Salicylates Acetaminophen 12/31/19 12/31/19 12/31/19 12:25 13:33 18:30 WBC RBC Hgb Hct MCV MCH MCHC RDW Plt Count Lymph % (Auto) [place] % (Auto) Eos % (Auto) Baso % (Auto) Lymph # [place] # Eos # Baso # Seg Neutrophils % Monocytes % (Manual) Monocytes # (Manual) D-Dimer ABG pH ABG pO2 ABG HCO3 ABG O2 Saturation ABG Base Excess ABG Hemoglobin Oxyhemoglobin Sodium Potassium Chloride Carbon Dioxide BUN Creatinine Glucose POC Glucose 379 H 311 H 349 H Lactic Acid Calcium Magnesium AST ALT Lactate Dehydrogenase Total Creatine Kinase C-Reactive Protein Total Protein Albumin Free T4 Urine WBC (Auto) Urine Total Protein Digoxin Salicylates Acetaminophen 12/31/19 12/31/19 01/01/20 22:29 23:30 02:58 WBC RBC Hgb Hct MCV MCH MCHC RDW Plt Count Lymph % (Auto) [place] % (Auto) Eos % (Auto) Baso % (Auto) Lymph # [place] # Eos # Baso # Seg Neutrophils % Monocytes % (Manual) Monocytes # (Manual) D-Dimer ABG pH ABG pO2 ABG HCO3 ABG O2 Saturation ABG Base Excess ABG Hemoglobin Oxyhemoglobin Sodium Potassium Chloride Carbon Dioxide BUN Creatinine Glucose POC Glucose 256 H 266 H 248 H Lactic Acid Calcium Magnesium AST ALT Lactate Dehydrogenase Total Creatine Kinase C-Reactive Protein Total Protein Albumin Free T4 Urine WBC (Auto) Urine Total Protein Digoxin Salicylates Acetaminophen 01/01/20 01/01/20 01/01/20 04:19 06:56 10:52 WBC RBC Hgb Hct MCV MCH MCHC RDW Plt Count Lymph % (Auto) [place] % (Auto) Eos % (Auto) Baso % (Auto) Lymph # [place] # Eos # Baso # Seg Neutrophils % Monocytes % (Manual) Monocytes # (Manual) D-Dimer ABG pH ABG pO2 90.7 H ABG HCO3 29.1 H ABG O2 Saturation ABG Base Excess 3.8 H ABG Hemoglobin 8.1 L Oxyhemoglobin 94.5 L Sodium Potassium Chloride Carbon Dioxide BUN Creatinine Glucose POC Glucose 303 H 244 H Lactic Acid Calcium Magnesium AST ALT Lactate Dehydrogenase Total Creatine Kinase C-Reactive Protein Total Protein Albumin Free T4 Urine WBC (Auto) Urine Total Protein Digoxin Salicylates Acetaminophen 01/01/20 01/01/20 01/01/20 13:39 14:49 18:42 WBC RBC Hgb Hct MCV MCH MCHC RDW Plt Count Lymph % (Auto) [place] % (Auto) Eos % (Auto) Baso % (Auto) Lymph # [place] # Eos # Baso # Seg Neutrophils % Monocytes % (Manual) Monocytes # (Manual) D-Dimer ABG pH ABG pO2 ABG HCO3 ABG O2 Saturation ABG Base Excess ABG Hemoglobin Oxyhemoglobin Sodium 147 H Potassium Chloride 107.1 H Carbon Dioxide BUN 28 H Creatinine Glucose 207 H POC Glucose 263 H 188 H Lactic Acid Calcium Magnesium AST ALT Lactate Dehydrogenase Total Creatine Kinase C-Reactive Protein Total Protein Albumin Free T4 Urine WBC (Auto) Urine Total Protein Digoxin Salicylates Acetaminophen 01/02/20 01/02/20 01/02/20 02:22 03:58 05:00 WBC RBC 3.31 L Hgb 8.0 L Hct 26.9 L MCV 81 L MCH 24 L MCHC 30 L RDW 19.4 H Plt Count Lymph % (Auto) [place] % (Auto) 9.4 H Eos % (Auto) 11.2 H Baso % (Auto) Lymph # [place] # Eos # 0.8 H Baso # Seg Neutrophils % Monocytes % (Manual) Monocytes # (Manual) D-Dimer ABG pH ABG pO2 63.0 L ABG HCO3 31.6 H ABG O2 Saturation 91.8 L ABG Base Excess 5.5 H ABG Hemoglobin 8.6 L Oxyhemoglobin 89.6 L Sodium Potassium Chloride Carbon Dioxide BUN Creatinine Glucose POC Glucose 196 H Lactic Acid Calcium Magnesium AST ALT Lactate Dehydrogenase Total Creatine Kinase C-Reactive Protein Total Protein Albumin Free T4 Urine WBC (Auto) Urine Total Protein Digoxin Salicylates Acetaminophen 01/02/20 01/02/20 01/02/20 05:40 10:26 13:57 WBC RBC Hgb Hct MCV MCH MCHC RDW Plt Count Lymph % (Auto) [place] % (Auto) Eos % (Auto) Baso % (Auto) Lymph # [place] # Eos # Baso # Seg Neutrophils % Monocytes % (Manual) Monocytes # (Manual) D-Dimer ABG pH ABG pO2 ABG HCO3 ABG O2 Saturation ABG Base Excess ABG Hemoglobin Oxyhemoglobin Sodium Potassium Chloride Carbon Dioxide BUN Creatinine Glucose POC Glucose 189 H 157 H 178 H Lactic Acid Calcium Magnesium AST ALT Lactate Dehydrogenase Total Creatine Kinase C-Reactive Protein Total Protein Albumin Free T4 Urine WBC (Auto) Urine Total Protein Digoxin Salicylates Acetaminophen 01/02/20 01/03/20 01/03/20 21:27 03:12 05:26 WBC RBC Hgb Hct MCV MCH MCHC RDW Plt Count Lymph % (Auto) [place] % (Auto) Eos % (Auto) Baso % (Auto) Lymph # [place] # Eos # Baso # Seg Neutrophils % Monocytes % (Manual) Monocytes # (Manual) D-Dimer ABG pH 7.473 H ABG pO2 109.6 H ABG HCO3 30.4 H ABG O2 Saturation ABG Base Excess 6.2 H ABG Hemoglobin 9.9 L Oxyhemoglobin Sodium Potassium Chloride Carbon Dioxide BUN Creatinine Glucose POC Glucose 131 H 133 H Lactic Acid Calcium Magnesium AST ALT Lactate Dehydrogenase Total Creatine Kinase C-Reactive Protein Total Protein Albumin Free T4 Urine WBC (Auto) Urine Total Protein Digoxin Salicylates Acetaminophen 01/03/20 01/03/20 01/03/20 05:40 05:40 15:01 WBC RBC 3.45 L Hgb 8.3 L Hct 27.3 L MCV 79 L MCH 24 L MCHC 30 L RDW 19.3 H Plt Count Lymph % (Auto) [place] % (Auto) Eos % (Auto) Baso % (Auto) Lymph # [place] # Eos # Baso # Seg Neutrophils % Monocytes % (Manual) Monocytes # (Manual) D-Dimer ABG pH ABG pO2 ABG HCO3 ABG O2 Saturation ABG Base Excess ABG Hemoglobin Oxyhemoglobin Sodium 151 H Potassium Chloride 111.8 H Carbon Dioxide 31 H BUN 37 H Creatinine 1.8 H Glucose 187 H POC Glucose 164 H Lactic Acid Calcium Magnesium AST ALT Lactate Dehydrogenase Total Creatine Kinase C-Reactive Protein Total Protein Albumin Free T4 Urine WBC (Auto) Urine Total Protein Digoxin Salicylates Acetaminophen 01/03/20 01/03/20 01/04/20 18:15 22:45 02:11 WBC RBC Hgb Hct MCV MCH MCHC RDW Plt Count Lymph % (Auto) [place] % (Auto) Eos % (Auto) Baso % (Auto) Lymph # [place] # Eos # Baso # Seg Neutrophils % Monocytes % (Manual) Monocytes # (Manual) D-Dimer ABG pH ABG pO2 ABG HCO3 ABG O2 Saturation ABG Base Excess ABG Hemoglobin Oxyhemoglobin Sodium Potassium Chloride Carbon Dioxide BUN Creatinine Glucose POC Glucose 184 H 176 H 206 H Lactic Acid Calcium Magnesium AST ALT Lactate Dehydrogenase Total Creatine Kinase C-Reactive Protein Total Protein Albumin Free T4 Urine WBC (Auto) Urine Total Protein Digoxin Salicylates Acetaminophen 01/04/20 01/04/20 01/04/20 03:16 05:15 10:53 WBC RBC Hgb Hct MCV MCH MCHC RDW Plt Count Lymph % (Auto) [place] % (Auto) Eos % (Auto) Baso % (Auto) Lymph # [place] # Eos # Baso # Seg Neutrophils % Monocytes % (Manual) Monocytes # (Manual) D-Dimer ABG pH 7.282 L ABG pO2 73.2 L ABG HCO3 ABG O2 Saturation 94.5 L ABG Base Excess -6.4 L ABG Hemoglobin 10.9 L Oxyhemoglobin 92.1 L Sodium Potassium Chloride Carbon Dioxide BUN Creatinine Glucose POC Glucose 139 H 224 H Lactic Acid Calcium Magnesium AST ALT Lactate Dehydrogenase Total Creatine Kinase C-Reactive Protein Total Protein Albumin Free T4 Urine WBC (Auto) Urine Total Protein Digoxin Salicylates Acetaminophen 01/04/20 01/04/20 01/04/20 15:47 18:05 22:07 WBC RBC Hgb Hct MCV MCH MCHC RDW Plt Count Lymph % (Auto) [place] % (Auto) Eos % (Auto) Baso % (Auto) Lymph # [place] # Eos # Baso # Seg Neutrophils % Monocytes % (Manual) Monocytes # (Manual) D-Dimer ABG pH ABG pO2 ABG HCO3 ABG O2 Saturation ABG Base Excess ABG Hemoglobin Oxyhemoglobin Sodium Potassium Chloride Carbon Dioxide BUN Creatinine Glucose POC Glucose 135 H 117 H 108 H Lactic Acid Calcium Magnesium AST ALT Lactate Dehydrogenase Total Creatine Kinase C-Reactive Protein Total Protein Albumin Free T4 Urine WBC (Auto) Urine Total Protein Digoxin Salicylates Acetaminophen 01/04/20 01/04/20 01/05/20 Unknown Unknown 02:04 WBC RBC 3.46 L Hgb 8.2 L Hct 27.8 L MCV 80 L MCH 24 L MCHC 30 L RDW 19.7 H Plt Count Lymph % (Auto) [place] % (Auto) Eos % (Auto) Baso % (Auto) Lymph # [place] # Eos # Baso # Seg Neutrophils % Monocytes % (Manual) Monocytes # (Manual) D-Dimer ABG pH ABG pO2 ABG HCO3 ABG O2 Saturation ABG Base Excess ABG Hemoglobin Oxyhemoglobin Sodium 150 H Potassium Chloride 110 H Carbon Dioxide 32 H BUN 32 H Creatinine Glucose 309 H POC Glucose 140 H Lactic Acid Calcium Magnesium AST ALT Lactate Dehydrogenase Total Creatine Kinase C-Reactive Protein Total Protein Albumin Free T4 Urine WBC (Auto) Urine Total Protein Digoxin Salicylates Acetaminophen 01/05/20 01/05/20 01/05/20 03:31 03:36 03:36 WBC RBC 3.46 L Hgb 8.4 L Hct 26.9 L MCV 78 L MCH 24 L MCHC 31 L RDW 19.0 H Plt Count Lymph % (Auto) [place] % (Auto) Eos % (Auto) Baso % (Auto) Lymph # [place] # Eos # Baso # Seg Neutrophils % Monocytes % (Manual) Monocytes # (Manual) D-Dimer ABG pH 7.454 H ABG pO2 113.0 H ABG HCO3 30.5 H ABG O2 Saturation ABG Base Excess 6.0 H ABG Hemoglobin 8.5 L Oxyhemoglobin Sodium 150 H Potassium Chloride 110.3 H Carbon Dioxide BUN 30 H Creatinine Glucose 148 H POC Glucose Lactic Acid Calcium Magnesium AST ALT Lactate Dehydrogenase Total Creatine Kinase C-Reactive Protein Total Protein Albumin Free T4 Urine WBC (Auto) Urine Total Protein Digoxin Salicylates Acetaminophen 01/05/20 01/05/20 01/05/20 05:21 09:56 11:45 WBC RBC Hgb Hct MCV MCH MCHC RDW Plt Count Lymph % (Auto) [place] % (Auto) Eos % (Auto) Baso % (Auto) Lymph # [place] # Eos # Baso # Seg Neutrophils % Monocytes % (Manual) Monocytes # (Manual) D-Dimer ABG pH ABG pO2 ABG HCO3 ABG O2 Saturation ABG Base Excess ABG Hemoglobin Oxyhemoglobin Sodium Potassium Chloride Carbon Dioxide BUN Creatinine Glucose POC Glucose 142 H 129 H 174 H Lactic Acid Calcium Magnesium AST ALT Lactate Dehydrogenase Total Creatine Kinase C-Reactive Protein Total Protein Albumin Free T4 Urine WBC (Auto) Urine Total Protein Digoxin Salicylates Acetaminophen 01/05/20 01/05/20 01/05/20 13:30 14:00 17:41 WBC RBC Hgb Hct MCV MCH MCHC RDW Plt Count Lymph % (Auto) [place] % (Auto) Eos % (Auto) Baso % (Auto) Lymph # [place] # Eos # Baso # Seg Neutrophils % Monocytes % (Manual) Monocytes # (Manual) D-Dimer ABG pH ABG pO2 ABG HCO3 ABG O2 Saturation ABG Base Excess ABG Hemoglobin Oxyhemoglobin Sodium Potassium Chloride Carbon Dioxide BUN 26 H Creatinine 1.6 H Glucose 302 H POC Glucose 168 H 136 H Lactic Acid Calcium Magnesium AST ALT Lactate Dehydrogenase Total Creatine Kinase C-Reactive Protein Total Protein Albumin Free T4 Urine WBC (Auto) Urine Total Protein Digoxin Salicylates Acetaminophen 01/05/20 01/05/20 01/06/20 20:38 23:32 03:50 WBC RBC Hgb Hct MCV MCH MCHC RDW Plt Count Lymph % (Auto) [place] % (Auto) Eos % (Auto) Baso % (Auto) Lymph # [place] # Eos # Baso # Seg Neutrophils % Monocytes % (Manual) Monocytes # (Manual) D-Dimer ABG pH ABG pO2 76.2 L ABG HCO3 30.1 H ABG O2 Saturation ABG Base Excess 5.1 H ABG Hemoglobin 9.5 L Oxyhemoglobin 93.8 L Sodium Potassium Chloride Carbon Dioxide BUN Creatinine Glucose POC Glucose 124 H 163 H Lactic Acid Calcium Magnesium AST ALT Lactate Dehydrogenase Total Creatine Kinase C-Reactive Protein Total Protein Albumin Free T4 Urine WBC (Auto) Urine Total Protein Digoxin Salicylates Acetaminophen 01/06/20 01/06/20 01/06/20 04:09 04:58 04:58 WBC RBC Hgb 8.8 L Hct 28.7 L MCV 78 L MCH 24 L MCHC 31 L RDW 18.7 H Plt Count 522 H Lymph % (Auto) [place] % (Auto) Eos % (Auto) Baso % (Auto) Lymph # [place] # Eos # Baso # Seg Neutrophils % Monocytes % (Manual) Monocytes # (Manual) D-Dimer ABG pH ABG pO2 ABG HCO3 ABG O2 Saturation ABG Base Excess ABG Hemoglobin Oxyhemoglobin Sodium 150 H D Potassium Chloride 109.3 H Carbon Dioxide BUN 25 H Creatinine Glucose 55 L POC Glucose 65 L Lactic Acid Calcium Magnesium AST ALT Lactate Dehydrogenase Total Creatine Kinase C-Reactive Protein Total Protein Albumin Free T4 Urine WBC (Auto) Urine Total Protein Digoxin Salicylates Acetaminophen 01/06/20 01/06/20 01/06/20 05:01 14:10 17:49 WBC RBC Hgb Hct MCV MCH MCHC RDW Plt Count Lymph % (Auto) [place] % (Auto) Eos % (Auto) Baso % (Auto) Lymph # [place] # Eos # Baso # Seg Neutrophils % Monocytes % (Manual) Monocytes # (Manual) D-Dimer ABG pH ABG pO2 ABG HCO3 ABG O2 Saturation ABG Base Excess ABG Hemoglobin Oxyhemoglobin Sodium Potassium Chloride Carbon Dioxide BUN Creatinine Glucose POC Glucose 60 L 119 H 131 H Lactic Acid Calcium Magnesium AST ALT Lactate Dehydrogenase Total Creatine Kinase C-Reactive Protein Total Protein Albumin Free T4 Urine WBC (Auto) Urine Total Protein Digoxin Salicylates Acetaminophen 01/06/20 01/07/20 01/07/20 21:08 02:11 05:19 WBC RBC Hgb Hct MCV MCH MCHC RDW Plt Count Lymph % (Auto) [place] % (Auto) Eos % (Auto) Baso % (Auto) Lymph # [place] # Eos # Baso # Seg Neutrophils % Monocytes % (Manual) Monocytes # (Manual) D-Dimer ABG pH ABG pO2 ABG HCO3 ABG O2 Saturation ABG Base Excess ABG Hemoglobin Oxyhemoglobin Sodium Potassium Chloride Carbon Dioxide BUN Creatinine Glucose POC Glucose 136 H 209 H 182 H Lactic Acid Calcium Magnesium AST ALT Lactate Dehydrogenase Total Creatine Kinase C-Reactive Protein Total Protein Albumin Free T4 Urine WBC (Auto) Urine Total Protein Digoxin Salicylates Acetaminophen 01/07/20 01/07/20 01/07/20 11:40 11:52 13:49 WBC RBC Hgb Hct MCV MCH MCHC RDW Plt Count Lymph % (Auto) [place] % (Auto) Eos % (Auto) Baso % (Auto) Lymph # [place] # Eos # Baso # Seg Neutrophils % Monocytes % (Manual) Monocytes # (Manual) D-Dimer ABG pH ABG pO2 ABG HCO3 ABG O2 Saturation ABG Base Excess ABG Hemoglobin Oxyhemoglobin Sodium Potassium Chloride Carbon Dioxide BUN 21 H Creatinine Glucose 190 H POC Glucose 180 H 184 H Lactic Acid Calcium Magnesium AST ALT Lactate Dehydrogenase Total Creatine Kinase C-Reactive Protein Total Protein Albumin Free T4 Urine WBC (Auto) Urine Total Protein Digoxin Salicylates Acetaminophen 01/07/20 01/07/20 01/07/20 17:54 22:19 Unknown WBC RBC Hgb Hct MCV MCH MCHC RDW Plt Count Lymph % (Auto) [place] % (Auto) Eos % (Auto) Baso % (Auto) Lymph # [place] # Eos # Baso # Seg Neutrophils % Monocytes % (Manual) Monocytes # (Manual) D-Dimer ABG pH ABG pO2 ABG HCO3 28.9 H ABG O2 Saturation ABG Base Excess 4.0 H ABG Hemoglobin 11.0 L Oxyhemoglobin 94.2 L Sodium Potassium Chloride Carbon Dioxide BUN Creatinine Glucose POC Glucose 190 H 299 H Lactic Acid Calcium Magnesium AST ALT Lactate Dehydrogenase Total Creatine Kinase C-Reactive Protein Total Protein Albumin Free T4 Urine WBC (Auto) Urine Total Protein Digoxin Salicylates Acetaminophen 01/08/20 01/08/20 01/08/20 02:45 05:26 05:27 WBC RBC Hgb Hct MCV MCH MCHC RDW Plt Count Lymph % (Auto) [place] % (Auto) Eos % (Auto) Baso % (Auto) Lymph # [place] # Eos # Baso # Seg Neutrophils % Monocytes % (Manual) Monocytes # (Manual) D-Dimer ABG pH ABG pO2 67.8 L ABG HCO3 26.5 H ABG O2 Saturation 93.2 L ABG Base Excess ABG Hemoglobin 8.1 L Oxyhemoglobin 90.4 L Sodium Potassium Chloride Carbon Dioxide BUN Creatinine Glucose POC Glucose 245 H 346 H Lactic Acid Calcium Magnesium AST ALT Lactate Dehydrogenase Total Creatine Kinase C-Reactive Protein Total Protein Albumin Free T4 Urine WBC (Auto) Urine Total Protein Digoxin Salicylates Acetaminophen 01/08/20 01/08/20 01/08/20 08:03 08:03 10:33 WBC RBC 3.14 L Hgb 7.6 L Hct 24.3 L MCV 77 L MCH 24 L MCHC 31 L RDW 18.3 H Plt Count 509 H Lymph % (Auto) [place] % (Auto) Eos % (Auto) Baso % (Auto) Lymph # [place] # Eos # Baso # Seg Neutrophils % Monocytes % (Manual) Monocytes # (Manual) D-Dimer ABG pH ABG pO2 ABG HCO3 ABG O2 Saturation ABG Base Excess ABG Hemoglobin Oxyhemoglobin Sodium 132 L D Potassium Chloride 94.7 L Carbon Dioxide BUN 22 H Creatinine Glucose 284 H POC Glucose 275 H Lactic Acid Calcium Magnesium AST ALT Lactate Dehydrogenase Total Creatine Kinase C-Reactive Protein Total Protein Albumin Free T4 Urine WBC (Auto) Urine Total Protein Digoxin Salicylates Acetaminophen 01/08/20 01/08/20 01/08/20 13:34 17:24 21:49 WBC RBC Hgb Hct MCV MCH MCHC RDW Plt Count Lymph % (Auto) [place] % (Auto) Eos % (Auto) Baso % (Auto) Lymph # [place] # Eos # Baso # Seg Neutrophils % Monocytes % (Manual) Monocytes # (Manual) D-Dimer ABG pH ABG pO2 ABG HCO3 ABG O2 Saturation ABG Base Excess ABG Hemoglobin Oxyhemoglobin Sodium Potassium Chloride Carbon Dioxide BUN Creatinine Glucose POC Glucose 273 H 294 H 265 H Lactic Acid Calcium Magnesium AST ALT Lactate Dehydrogenase Total Creatine Kinase C-Reactive Protein Total Protein Albumin Free T4 Urine WBC (Auto) Urine Total Protein Digoxin Salicylates Acetaminophen 01/09/20 01/09/20 01/09/20 00:13 03:45 05:55 WBC RBC Hgb Hct MCV MCH MCHC RDW Plt Count Lymph % (Auto) [place] % (Auto) Eos % (Auto) Baso % (Auto) Lymph # [place] # Eos # Baso # Seg Neutrophils % Monocytes % (Manual) Monocytes # (Manual) D-Dimer ABG pH ABG pO2 ABG HCO3 ABG O2 Saturation ABG Base Excess ABG Hemoglobin Oxyhemoglobin Sodium Potassium Chloride Carbon Dioxide BUN Creatinine Glucose POC Glucose 251 H 346 H 300 H Lactic Acid Calcium Magnesium AST ALT Lactate Dehydrogenase Total Creatine Kinase C-Reactive Protein Total Protein Albumin Free T4 Urine WBC (Auto) Urine Total Protein Digoxin Salicylates Acetaminophen 01/09/20 01/09/20 01/09/20 08:15 09:31 12:04 WBC RBC Hgb Hct MCV MCH MCHC RDW Plt Count Lymph % (Auto) [place] % (Auto) Eos % (Auto) Baso % (Auto) Lymph # [place] # Eos # Baso # Seg Neutrophils % Monocytes % (Manual) Monocytes # (Manual) D-Dimer ABG pH ABG pO2 ABG HCO3 ABG O2 Saturation ABG Base Excess ABG Hemoglobin Oxyhemoglobin Sodium 134 L Potassium Chloride 97.6 L Carbon Dioxide BUN 25 H Creatinine Glucose 240 H POC Glucose 191 H 230 H Lactic Acid Calcium Magnesium AST ALT Lactate Dehydrogenase Total Creatine Kinase C-Reactive Protein Total Protein Albumin Free T4 Urine WBC (Auto) Urine Total Protein Digoxin Salicylates Acetaminophen 01/09/20 01/09/20 01/09/20 13:46 17:31 22:28 WBC RBC Hgb Hct MCV MCH MCHC RDW Plt Count Lymph % (Auto) [place] % (Auto) Eos % (Auto) Baso % (Auto) Lymph # [place] # Eos # Baso # Seg Neutrophils % Monocytes % (Manual) Monocytes # (Manual) D-Dimer ABG pH ABG pO2 ABG HCO3 ABG O2 Saturation ABG Base Excess ABG Hemoglobin Oxyhemoglobin Sodium Potassium Chloride Carbon Dioxide BUN Creatinine Glucose POC Glucose 211 H 260 H 223 H Lactic Acid Calcium Magnesium AST ALT Lactate Dehydrogenase Total Creatine Kinase C-Reactive Protein Total Protein Albumin Free T4 Urine WBC (Auto) Urine Total Protein Digoxin Salicylates Acetaminophen 01/10/20 01/10/20 01/10/20 02:16 04:20 05:55 WBC RBC Hgb Hct MCV MCH MCHC RDW Plt Count Lymph % (Auto) [place] % (Auto) Eos % (Auto) Baso % (Auto) Lymph # [place] # Eos # Baso # Seg Neutrophils % Monocytes % (Manual) Monocytes # (Manual) D-Dimer ABG pH ABG pO2 95.3 H ABG HCO3 27.8 H ABG O2 Saturation ABG Base Excess ABG Hemoglobin 8.3 L Oxyhemoglobin Sodium Potassium Chloride Carbon Dioxide BUN Creatinine Glucose POC Glucose 219 H 245 H Lactic Acid Calcium Magnesium AST ALT Lactate Dehydrogenase Total Creatine Kinase C-Reactive Protein Total Protein Albumin Free T4 Urine WBC (Auto) Urine Total Protein Digoxin Salicylates Acetaminophen 01/10/20 01/10/20 01/10/20 10:38 15:08 15:45 WBC RBC Hgb Hct MCV MCH MCHC RDW Plt Count Lymph % (Auto) [place] % (Auto) Eos % (Auto) Baso % (Auto) Lymph # [place] # Eos # Baso # Seg Neutrophils % Monocytes % (Manual) Monocytes # (Manual) D-Dimer ABG pH ABG pO2 ABG HCO3 ABG O2 Saturation ABG Base Excess ABG Hemoglobin Oxyhemoglobin Sodium Potassium Chloride Carbon Dioxide BUN Creatinine Glucose POC Glucose 268 H 246 H 238 H Lactic Acid Calcium Magnesium AST ALT Lactate Dehydrogenase Total Creatine Kinase C-Reactive Protein Total Protein Albumin Free T4 Urine WBC (Auto) Urine Total Protein Digoxin Salicylates Acetaminophen 01/10/20 01/10/20 01/10/20 18:00 21:09 22:48 WBC RBC Hgb Hct MCV MCH MCHC RDW Plt Count Lymph % (Auto) [place] % (Auto) Eos % (Auto) Baso % (Auto) Lymph # [place] # Eos # Baso # Seg Neutrophils % Monocytes % (Manual) Monocytes # (Manual) D-Dimer ABG pH ABG pO2 ABG HCO3 ABG O2 Saturation ABG Base Excess ABG Hemoglobin Oxyhemoglobin Sodium Potassium Chloride Carbon Dioxide BUN Creatinine Glucose POC Glucose 187 H 176 H 189 H Lactic Acid Calcium Magnesium AST ALT Lactate Dehydrogenase Total Creatine Kinase C-Reactive Protein Total Protein Albumin Free T4 Urine WBC (Auto) Urine Total Protein Digoxin Salicylates Acetaminophen 01/11/20 01/11/20 01/11/20 03:07 05:45 05:45 WBC RBC 3.15 L Hgb 7.7 L Hct 24.9 L MCV 79 L MCH 24 L MCHC 31 L RDW 18.7 H Plt Count 667 H Lymph % (Auto) [place] % (Auto) Eos % (Auto) Baso % (Auto) Lymph # [place] # Eos # Baso # Seg Neutrophils % Monocytes % (Manual) Monocytes # (Manual) D-Dimer ABG pH ABG pO2 ABG HCO3 ABG O2 Saturation ABG Base Excess ABG Hemoglobin Oxyhemoglobin Sodium 148 H D Potassium 5.1 H Chloride 111.9 H Carbon Dioxide BUN 26 H Creatinine Glucose 236 H POC Glucose 253 H Lactic Acid Calcium Magnesium AST 67 H ALT Lactate Dehydrogenase Total Creatine Kinase C-Reactive Protein Total Protein 5.9 L Albumin 2.8 L Free T4 Urine WBC (Auto) Urine Total Protein Digoxin Salicylates Acetaminophen 01/11/20 01/11/20 01/11/20 06:10 12:59 14:22 WBC RBC Hgb Hct MCV MCH MCHC RDW Plt Count Lymph % (Auto) [place] % (Auto) Eos % (Auto) Baso % (Auto) Lymph # [place] # Eos # Baso # Seg Neutrophils % Monocytes % (Manual) Monocytes # (Manual) D-Dimer ABG pH ABG pO2 ABG HCO3 ABG O2 Saturation ABG Base Excess ABG Hemoglobin Oxyhemoglobin Sodium Potassium Chloride Carbon Dioxide BUN Creatinine Glucose POC Glucose 261 H 234 H 220 H Lactic Acid Calcium Magnesium AST ALT Lactate Dehydrogenase Total Creatine Kinase C-Reactive Protein Total Protein Albumin Free T4 Urine WBC (Auto) Urine Total Protein Digoxin Salicylates Acetaminophen 01/11/20 01/11/20 01/12/20 17:18 21:20 00:45 WBC RBC Hgb Hct MCV MCH MCHC RDW Plt Count Lymph % (Auto) [place] % (Auto) Eos % (Auto) Baso % (Auto) Lymph # [place] # Eos # Baso # Seg Neutrophils % Monocytes % (Manual) Monocytes # (Manual) D-Dimer ABG pH ABG pO2 ABG HCO3 ABG O2 Saturation ABG Base Excess ABG Hemoglobin Oxyhemoglobin Sodium Potassium Chloride Carbon Dioxide BUN Creatinine Glucose POC Glucose 264 H 299 H 289 H Lactic Acid Calcium Magnesium AST ALT Lactate Dehydrogenase Total Creatine Kinase C-Reactive Protein Total Protein Albumin Free T4 Urine WBC (Auto) Urine Total Protein Digoxin Salicylates Acetaminophen 01/12/20 01/12/20 01/12/20 04:35 06:10 11:29 WBC RBC Hgb Hct MCV MCH MCHC RDW Plt Count Lymph % (Auto) [place] % (Auto) Eos % (Auto) Baso % (Auto) Lymph # [place] # Eos # Baso # Seg Neutrophils % Monocytes % (Manual) Monocytes # (Manual) D-Dimer ABG pH ABG pO2 ABG HCO3 ABG O2 Saturation ABG Base Excess ABG Hemoglobin Oxyhemoglobin Sodium Potassium Chloride Carbon Dioxide BUN Creatinine Glucose POC Glucose 187 H 194 H 213 H Lactic Acid Calcium Magnesium AST ALT Lactate Dehydrogenase Total Creatine Kinase C-Reactive Protein Total Protein Albumin Free T4 Urine WBC (Auto) Urine Total Protein Digoxin Salicylates Acetaminophen 01/12/20 01/12/20 01/12/20 14:40 18:50 21:34 WBC RBC Hgb Hct MCV MCH MCHC RDW Plt Count Lymph % (Auto) [place] % (Auto) Eos % (Auto) Baso % (Auto) Lymph # [place] # Eos # Baso # Seg Neutrophils % Monocytes % (Manual) Monocytes # (Manual) D-Dimer ABG pH ABG pO2 ABG HCO3 ABG O2 Saturation ABG Base Excess ABG Hemoglobin Oxyhemoglobin Sodium Potassium Chloride Carbon Dioxide BUN Creatinine Glucose POC Glucose 288 H 292 H 147 H Lactic Acid Calcium Magnesium AST ALT Lactate Dehydrogenase Total Creatine Kinase C-Reactive Protein Total Protein Albumin Free T4 Urine WBC (Auto) Urine Total Protein Digoxin Salicylates Acetaminophen 01/12/20 01/13/20 01/13/20 23:16 04:00 05:27 WBC RBC Hgb Hct MCV MCH MCHC RDW Plt Count Lymph % (Auto) [place] % (Auto) Eos % (Auto) Baso % (Auto) Lymph # [place] # Eos # Baso # Seg Neutrophils % Monocytes % (Manual) Monocytes # (Manual) D-Dimer ABG pH ABG pO2 ABG HCO3 ABG O2 Saturation ABG Base Excess ABG Hemoglobin Oxyhemoglobin Sodium 149 H Potassium Chloride 112.4 H Carbon Dioxide 32 H BUN 28 H Creatinine Glucose 174 H POC Glucose 122 H 143 H Lactic Acid Calcium Magnesium AST ALT Lactate Dehydrogenase Total Creatine Kinase C-Reactive Protein Total Protein Albumin Free T4 Urine WBC (Auto) Urine Total Protein Digoxin Salicylates Acetaminophen 01/13/20 01/13/20 01/13/20 10:24 13:34 15:10 WBC RBC Hgb Hct MCV MCH MCHC RDW Plt Count Lymph % (Auto) [place] % (Auto) Eos % (Auto) Baso % (Auto) Lymph # [place] # Eos # Baso # Seg Neutrophils % Monocytes % (Manual) Monocytes # (Manual) D-Dimer ABG pH 7.223 L ABG pO2 ABG HCO3 33.1 H ABG O2 Saturation 94.7 L ABG Base Excess 4.2 H ABG Hemoglobin 8.5 L Oxyhemoglobin 92.1 L Sodium Potassium Chloride Carbon Dioxide BUN Creatinine Glucose POC Glucose 172 H 151 H Lactic Acid Calcium Magnesium AST ALT Lactate Dehydrogenase Total Creatine Kinase C-Reactive Protein Total Protein Albumin Free T4 Urine WBC (Auto) Urine Total Protein Digoxin Salicylates Acetaminophen 01/13/20 01/13/20 01/13/20 17:59 20:37 22:17 WBC RBC Hgb Hct MCV MCH MCHC RDW Plt Count Lymph % (Auto) [place] % (Auto) Eos % (Auto) Baso % (Auto) Lymph # [place] # Eos # Baso # Seg Neutrophils % Monocytes % (Manual) Monocytes # (Manual) D-Dimer ABG pH ABG pO2 ABG HCO3 ABG O2 Saturation ABG Base Excess ABG Hemoglobin Oxyhemoglobin Sodium Potassium Chloride Carbon Dioxide BUN Creatinine Glucose POC Glucose 114 H 152 H Lactic Acid Calcium Magnesium AST ALT Lactate Dehydrogenase Total Creatine Kinase C-Reactive Protein Total Protein Albumin Free T4 0.63 L Urine WBC (Auto) Urine Total Protein Digoxin Salicylates Acetaminophen 01/13/20 01/14/20 01/14/20 Unknown 02:10 05:20 WBC RBC 3.39 L Hgb 8.1 L Hct 28.4 L MCV MCH 24 L MCHC 29 L RDW 19.9 H Plt Count 713 H Lymph % (Auto) [place] % (Auto) 12.7 H Eos % (Auto) Baso % (Auto) 1.9 H Lymph # [place] # 1.3 H Eos # Baso # 0.2 H Seg Neutrophils % Monocytes % (Manual) Monocytes # (Manual) D-Dimer ABG pH ABG pO2 ABG HCO3 ABG O2 Saturation ABG Base Excess ABG Hemoglobin Oxyhemoglobin Sodium Potassium Chloride Carbon Dioxide BUN Creatinine Glucose POC Glucose 151 H 157 H Lactic Acid Calcium Magnesium AST ALT Lactate Dehydrogenase Total Creatine Kinase C-Reactive Protein Total Protein Albumin Free T4 Urine WBC (Auto) Urine Total Protein Digoxin Salicylates Acetaminophen 01/14/20 01/14/20 01/14/20 11:49 14:56 18:03 WBC RBC Hgb Hct MCV MCH MCHC RDW Plt Count Lymph % (Auto) [place] % (Auto) Eos % (Auto) Baso % (Auto) Lymph # [place] # Eos # Baso # Seg Neutrophils % Monocytes % (Manual) Monocytes # (Manual) D-Dimer ABG pH ABG pO2 ABG HCO3 ABG O2 Saturation ABG Base Excess ABG Hemoglobin Oxyhemoglobin Sodium Potassium Chloride Carbon Dioxide BUN Creatinine Glucose POC Glucose 139 H 112 H 134 H Lactic Acid Calcium Magnesium AST ALT Lactate Dehydrogenase Total Creatine Kinase C-Reactive Protein Total Protein Albumin Free T4 Urine WBC (Auto) Urine Total Protein Digoxin Salicylates Acetaminophen 01/14/20 01/15/20 01/15/20 22:03 02:21 05:28 WBC RBC Hgb Hct MCV MCH MCHC RDW Plt Count Lymph % (Auto) [place] % (Auto) Eos % (Auto) Baso % (Auto) Lymph # [place] # Eos # Baso # Seg Neutrophils % Monocytes % (Manual) Monocytes # (Manual) D-Dimer ABG pH ABG pO2 ABG HCO3 ABG O2 Saturation ABG Base Excess ABG Hemoglobin Oxyhemoglobin Sodium Potassium Chloride Carbon Dioxide BUN Creatinine Glucose POC Glucose 173 H 129 H 127 H Lactic Acid Calcium Magnesium AST ALT Lactate Dehydrogenase Total Creatine Kinase C-Reactive Protein Total Protein Albumin Free T4 Urine WBC (Auto) Urine Total Protein Digoxin Salicylates Acetaminophen 01/15/20 01/15/20 01/15/20 10:43 16:14 18:25 WBC RBC Hgb Hct MCV MCH MCHC RDW Plt Count Lymph % (Auto) [place] % (Auto) Eos % (Auto) Baso % (Auto) Lymph # [place] # Eos # Baso # Seg Neutrophils % Monocytes % (Manual) Monocytes # (Manual) D-Dimer ABG pH ABG pO2 ABG HCO3 ABG O2 Saturation ABG Base Excess ABG Hemoglobin Oxyhemoglobin Sodium Potassium Chloride Carbon Dioxide BUN Creatinine Glucose POC Glucose 150 H 133 H 166 H Lactic Acid Calcium Magnesium AST ALT Lactate Dehydrogenase Total Creatine Kinase C-Reactive Protein Total Protein Albumin Free T4 Urine WBC (Auto) Urine Total Protein Digoxin Salicylates Acetaminophen 01/15/20 01/16/20 01/16/20 23:03 02:11 06:00 WBC RBC 3.19 L Hgb 7.9 L Hct 26.2 L MCV 82 L MCH 25 L MCHC 30 L RDW 20.1 H Plt Count 466 H Lymph % (Auto) 12.9 L [place] % (Auto) 11.2 H Eos % (Auto) 11.0 H Baso % (Auto) Lymph # 1.1 L [place] # 0.9 H Eos # 0.9 H Baso # Seg Neutrophils % Monocytes % (Manual) Monocytes # (Manual) D-Dimer ABG pH ABG pO2 ABG HCO3 ABG O2 Saturation ABG Base Excess ABG Hemoglobin Oxyhemoglobin Sodium Potassium Chloride Carbon Dioxide BUN Creatinine Glucose POC Glucose 143 H 136 H Lactic Acid Calcium Magnesium AST ALT Lactate Dehydrogenase Total Creatine Kinase C-Reactive Protein Total Protein Albumin Free T4 Urine WBC (Auto) Urine Total Protein Digoxin Salicylates Acetaminophen 01/16/20 01/16/20 01/16/20 06:00 06:10 11:52 WBC RBC Hgb Hct MCV MCH MCHC RDW Plt Count Lymph % (Auto) [place] % (Auto) Eos % (Auto) Baso % (Auto) Lymph # [place] # Eos # Baso # Seg Neutrophils % Monocytes % (Manual) Monocytes # (Manual) D-Dimer ABG pH ABG pO2 ABG HCO3 ABG O2 Saturation ABG Base Excess ABG Hemoglobin Oxyhemoglobin Sodium 152 H Potassium Chloride 110.2 H Carbon Dioxide 36 H BUN 23 H Creatinine 0.7 L Glucose 161 H POC Glucose 192 H 184 H Lactic Acid Calcium Magnesium AST ALT Lactate Dehydrogenase Total Creatine Kinase C-Reactive Protein Total Protein Albumin Free T4 Urine WBC (Auto) Urine Total Protein Digoxin Salicylates Acetaminophen 01/16/20 01/16/20 01/16/20 15:15 17:12 22:12 WBC RBC Hgb Hct MCV MCH MCHC RDW Plt Count Lymph % (Auto) [place] % (Auto) Eos % (Auto) Baso % (Auto) Lymph # [place] # Eos # Baso # Seg Neutrophils % Monocytes % (Manual) Monocytes # (Manual) D-Dimer ABG pH ABG pO2 ABG HCO3 ABG O2 Saturation ABG Base Excess ABG Hemoglobin Oxyhemoglobin Sodium Potassium Chloride Carbon Dioxide BUN Creatinine Glucose POC Glucose 224 H 183 H 106 H Lactic Acid Calcium Magnesium AST ALT Lactate Dehydrogenase Total Creatine Kinase C-Reactive Protein Total Protein Albumin Free T4 Urine WBC (Auto) Urine Total Protein Digoxin Salicylates Acetaminophen 01/17/20 01/17/20 01/17/20 02:13 06:10 06:20 WBC RBC 3.50 L Hgb 8.6 L Hct 29.0 L MCV 83 L MCH 25 L MCHC 30 L RDW 21.1 H Plt Count 517 H Lymph % (Auto) [place] % (Auto) 9.7 H Eos % (Auto) 11.9 H Baso % (Auto) Lymph # [place] # Eos # 1.0 H Baso # Seg Neutrophils % Monocytes % (Manual) Monocytes # (Manual) D-Dimer ABG pH ABG pO2 ABG HCO3 ABG O2 Saturation ABG Base Excess ABG Hemoglobin Oxyhemoglobin Sodium Potassium Chloride Carbon Dioxide BUN Creatinine Glucose POC Glucose 164 H 178 H Lactic Acid Calcium Magnesium AST ALT Lactate Dehydrogenase Total Creatine Kinase C-Reactive Protein Total Protein Albumin Free T4 Urine WBC (Auto) Urine Total Protein Digoxin Salicylates Acetaminophen 01/17/20 01/17/20 01/17/20 06:20 10:48 13:23 WBC RBC Hgb Hct MCV MCH MCHC RDW Plt Count Lymph % (Auto) [place] % (Auto) Eos % (Auto) Baso % (Auto) Lymph # [place] # Eos # Baso # Seg Neutrophils % Monocytes % (Manual) Monocytes # (Manual) D-Dimer ABG pH ABG pO2 ABG HCO3 ABG O2 Saturation ABG Base Excess ABG Hemoglobin Oxyhemoglobin Sodium 148 H Potassium Chloride Carbon Dioxide 34 H BUN 21 H Creatinine 0.6 L Glucose 151 H POC Glucose 172 H 161 H Lactic Acid Calcium Magnesium AST ALT Lactate Dehydrogenase Total Creatine Kinase C-Reactive Protein Total Protein Albumin Free T4 Urine WBC (Auto) Urine Total Protein Digoxin Salicylates Acetaminophen 01/17/20 01/17/20 01/18/20 17:23 21:46 04:45 WBC RBC 3.28 L Hgb 8.0 L Hct 27.0 L MCV 82 L MCH 24 L MCHC 30 L RDW 21.0 H Plt Count 450 H Lymph % (Auto) [place] % (Auto) 11.5 H Eos % (Auto) 13.1 H Baso % (Auto) Lymph # [place] # Eos # 0.9 H Baso # Seg Neutrophils % Monocytes % (Manual) Monocytes # (Manual) D-Dimer ABG pH ABG pO2 ABG HCO3 ABG O2 Saturation ABG Base Excess ABG Hemoglobin Oxyhemoglobin Sodium Potassium Chloride Carbon Dioxide BUN Creatinine Glucose POC Glucose 138 H 106 H Lactic Acid Calcium Magnesium AST ALT Lactate Dehydrogenase Total Creatine Kinase C-Reactive Protein Total Protein Albumin Free T4 Urine WBC (Auto) Urine Total Protein Digoxin Salicylates Acetaminophen 01/18/20 01/18/20 01/18/20 04:45 10:38 12:19 WBC RBC Hgb Hct MCV MCH MCHC RDW Plt Count Lymph % (Auto) [place] % (Auto) Eos % (Auto) Baso % (Auto) Lymph # [place] # Eos # Baso # Seg Neutrophils % Monocytes % (Manual) Monocytes # (Manual) D-Dimer ABG pH ABG pO2 ABG HCO3 ABG O2 Saturation ABG Base Excess ABG Hemoglobin Oxyhemoglobin Sodium Potassium Chloride Carbon Dioxide 35 H BUN Creatinine Glucose 71 L POC Glucose 106 H 138 H Lactic Acid Calcium Magnesium AST ALT Lactate Dehydrogenase Total Creatine Kinase C-Reactive Protein Total Protein Albumin Free T4 Urine WBC (Auto) Urine Total Protein Digoxin Salicylates Acetaminophen 01/18/20 01/18/20 01/19/20 13:38 17:54 03:36 WBC RBC Hgb Hct MCV MCH MCHC RDW Plt Count Lymph % (Auto) [place] % (Auto) Eos % (Auto) Baso % (Auto) Lymph # [place] # Eos # Baso # Seg Neutrophils % Monocytes % (Manual) Monocytes # (Manual) D-Dimer ABG pH ABG pO2 ABG HCO3 ABG O2 Saturation ABG Base Excess ABG Hemoglobin Oxyhemoglobin Sodium Potassium Chloride Carbon Dioxide BUN Creatinine Glucose POC Glucose 129 H 144 H 185 H Lactic Acid Calcium Magnesium AST ALT Lactate Dehydrogenase Total Creatine Kinase C-Reactive Protein Total Protein Albumin Free T4 Urine WBC (Auto) Urine Total Protein Digoxin Salicylates Acetaminophen 01/19/20 01/19/20 01/19/20 05:45 05:45 06:16 WBC RBC 3.30 L Hgb 8.1 L Hct 27.2 L MCV 82 L MCH 25 L MCHC 30 L RDW 20.6 H Plt Count Lymph % (Auto) 10.3 L [place] % (Auto) 13.0 H Eos % (Auto) 7.9 H Baso % (Auto) Lymph # 0.8 L [place] # 1.0 H Eos # 0.6 H Baso # Seg Neutrophils % Monocytes % (Manual) Monocytes # (Manual) D-Dimer ABG pH ABG pO2 ABG HCO3 ABG O2 Saturation ABG Base Excess ABG Hemoglobin Oxyhemoglobin Sodium Potassium Chloride Carbon Dioxide 34 H BUN Creatinine Glucose 167 H POC Glucose 182 H Lactic Acid Calcium Magnesium AST ALT Lactate Dehydrogenase Total Creatine Kinase C-Reactive Protein Total Protein Albumin Free T4 Urine WBC (Auto) Urine Total Protein Digoxin Salicylates Acetaminophen Allied health notes reviewed: RT
--- NOTE | 2020-01-19 17:51 | Progress Note ---
Assessment and Plan Assessment and plan: --COVID-19 negative x2 --Acute hypoxic respiratory failure; status post trach and PEG On vent, continue current management, pulmonary critical following --Sepsis with septic shock; requiring vasopressors Mild improvement, monitor off vasopressors Supportive care --Bilateral pneumonia;Completed antibiotics, monitor off antibiotics, Ventilatory support --Acute kidney injury/ATN; Resolved, avoid nephrotoxins --Obesity; BMI 33.1 Patient needs weight reduction when medically stable --Sinus bradycardia; present on admission Now resolved, heart rate in 70s, Cardiology following --Hypothyroidism; continue Synthroid --History of congestive heart failure --DVT prophylaxis Discharge planning per case management; CM assisting with LTAC placement Plan of care reviewed with the patient's nurse Engineer Intern recommendations noted and appreciated Critical care time 32 minutes The high probability of a clinically significant, sudden or life threatening deterioration of the [renal, respiratory and cardiac] system(s) required my full and direct attention, intervention and personal management. The aggregate critical care time was [32] minutes. This time is in addition to time spent performing reported procedures but includes the following: [x] Data Review and interpretation [x] Patient assessment and monitoring of vital signs [x] Documentation [x] Medication orders and management History Interval history: Patient seen and examined Patient's chart and medications reviewed Patient underwent trach and PEG yesterday, tolerated the procedure well Tube feedings started, No new complaints Vital signs noted Tracheostomy on vent Hospitalist Physical - Constitutional Vitals: Temp Pulse Resp BP Pulse Ox 97.5 F L 80 21 103/68 97 01/19/20 16:00 01/19/20 17:00 01/19/20 17:00 01/19/20 17:00 01/19/20 17:00 General appearance: Present: severe distress, well-nourished, obese, other (Tracheostomy on vent) - EENT Eyes: Present: PERRL, EOM intact ENT: other (Tracheostomy) - Neck Neck: Present: supple, normal ROM - Respiratory Respiratory effort: normal Respiratory: bilateral: diminished, negative: rales, rhonchi, wheezing - Cardiovascular Rhythm: regular Heart Sounds: Present: S1 & S2 - Extremities Extremities: no ischemia, No edema - Abdominal General gastrointestinal: soft, non-tender, non-distended, normal bowel sounds, other (PEG in place) - Integumentary Integumentary: Present: clear, warm - Psychiatric Psychiatric: appropriate mood/affect, cooperative - Neurologic Neurologic: CNII-XII intact HEART Score - HEART Score Troponin: Troponin T 0.011 ng/mL (0.00-0.029) 12/18/19 14:45 Results - Labs CBC & Chem 7: 01/19/20 05:45 01/19/20 05:45 Labs: Laboratory Last Values WBC 7.8 K/mm3 (4.5-11.0) 01/19/20 05:45 RBC 3.30 M/mm3 (3.65-5.03) L 01/19/20 05:45 Hgb 8.1 gm/dl (11.8-15.2) L 01/19/20 05:45 Hct 27.2 % (35.5-45.6) L 01/19/20 05:45 MCV 82 fl (84-94) L 01/19/20 05:45 MCH 25 pg (28-32) L 01/19/20 05:45 MCHC 30 % (32-34) L 01/19/20 05:45 RDW 20.6 % (13.2-15.2) H 01/19/20 05:45 Plt Count 387 K/mm3 (140-440) 01/19/20 05:45 Lymph % (Auto) 10.3 % (13.4-35.0) L 01/19/20 05:45 Mora % (Auto) 13.0 % (0.0-7.3) H 01/19/20 05:45 Eos % (Auto) 7.9 % (0.0-4.3) H 01/19/20 05:45 Baso % (Auto) 0.6 % (0.0-1.8) 01/19/20 05:45 Lymph # 0.8 K/mm3 (1.2-5.4) L 01/19/20 05:45 Mora # 1.0 K/mm3 (0.0-0.8) H 01/19/20 05:45 Eos # 0.6 K/mm3 (0.0-0.4) H 01/19/20 05:45 Baso # 0.0 K/mm3 (0.0-0.1) 01/19/20 05:45 Add Manual Diff Complete 12/24/19 04:53 Total Counted 100 12/24/19 04:53 Seg Neutrophils % 68.2 % (40.0-70.0) 01/19/20 05:45 Seg Neuts % (Manual) 60.0 % (40.0-70.0) 12/24/19 04:53 Band Neutrophils % 0 % 12/24/19 04:53 Lymphocytes % (Manual) 20.0 % (13.4-35.0) 12/24/19 04:53 Reactive Lymphs % (Man) 0 % 12/24/19 04:53 Monocytes % (Manual) 15.0 % (0.0-7.3) H 12/24/19 04:53 Eosinophils % (Manual) 4.0 % (0.0-4.3) 12/24/19 04:53 Basophils % (Manual) 0 % (0.0-1.8) 12/24/19 04:53 Metamyelocytes % 1.0 % 12/24/19 04:53 Myelocytes % 0 % 12/24/19 04:53 Promyelocytes % 0 % 12/24/19 04:53 Blast Cells % 0 % 12/24/19 04:53 Nucleated RBC % Not Reportable 12/24/19 04:53 Seg Neutrophils # 5.3 K/mm3 (1.8-7.7) 01/19/20 05:45 Seg Neutrophils # Man 3.5 K/mm3 (1.8-7.7) 12/24/19 04:53 Band Neutrophils # 0.0 K/mm3 12/24/19 04:53 Lymphocytes # (Manual) 1.2 K/mm3 (1.2-5.4) 12/24/19 04:53 Abs React Lymphs (Man) 0.0 K/mm3 12/24/19 04:53 Monocytes # (Manual) 0.9 K/mm3 (0.0-0.8) H 12/24/19 04:53 Eosinophils # (Manual) 0.2 K/mm3 (0.0-0.4) 12/24/19 04:53 Basophils # (Manual) 0.0 K/mm3 (0.0-0.1) 12/24/19 04:53 Metamyelocytes # 0.1 K/mm3 12/24/19 04:53 Myelocytes # 0.0 K/mm3 12/24/19 04:53 Promyelocytes # 0.0 K/mm3 12/24/19 04:53 Blast Cells # 0.0 K/mm3 12/24/19 04:53 WBC Morphology Not Reportable 12/24/19 04:53 Hypersegmented Neuts Not Reportable 12/24/19 04:53 Hyposegmented Neuts Not Reportable 12/24/19 04:53 Hypogranular Neuts Not Reportable 12/24/19 04:53 Smudge Cells Not Reportable 12/24/19 04:53 Toxic Granulation Not Reportable 12/24/19 04:53 Toxic Vacuolation Not Reportable 12/24/19 04:53 Dohle Bodies Not Reportable 12/24/19 04:53 Pelger-Huet Anomaly Not Reportable 12/24/19 04:53 Mervin Rods Not Reportable 12/24/19 04:53 Platelet Estimate Consistent w auto 12/24/19 04:53 Clumped Platelets Not Reportable 12/24/19 04:53 Plt Clumps, EDTA Not Reportable 12/24/19 04:53 Large Platelets Not Reportable 12/24/19 04:53 Giant Platelets Not Reportable 12/24/19 04:53 Platelet Satelliting Not Reportable 12/24/19 04:53 Plt Morphology Comment Not Reportable 12/24/19 04:53 RBC Morphology Not Reportable 12/24/19 04:53 Dimorphic RBCs Not Reportable 12/24/19 04:53 Polychromasia Rare 12/24/19 04:53 Hypochromasia 1+ 12/24/19 04:53 Poikilocytosis Not Reportable 12/24/19 04:53 Anisocytosis 1+ 12/24/19 04:53 Microcytosis Few 12/24/19 04:53 Macrocytosis Not Reportable 12/24/19 04:53 Spherocytes Not Reportable 12/24/19 04:53 Pappenheimer Bodies Not Reportable 12/24/19 04:53 Sickle Cells Not Reportable 12/24/19 04:53 Target Cells Not Reportable 12/24/19 04:53 Tear Drop Cells Not Reportable 12/24/19 04:53 Ovalocytes Few 12/24/19 04:53 Helmet Cells Not Reportable 12/24/19 04:53 [place] Bodies Not Reportable 12/24/19 04:53 Ladora Rings Not Reportable 12/24/19 04:53 Ileana Cells Not Reportable 12/24/19 04:53 Bite Cells Not Reportable 12/24/19 04:53 Crenated Cell Not Reportable 12/24/19 04:53 Elliptocytes Not Reportable 12/24/19 04:53 Acanthocytes (Spur) Not Reportable 12/24/19 04:53 Rouleaux Not Reportable 12/24/19 04:53 Hemoglobin C Crystals Not Reportable 12/24/19 04:53 Schistocytes Not Reportable 12/24/19 04:53 Malaria parasites Not Reportable 12/24/19 04:53 Gianni Bodies Not Reportable 12/24/19 04:53 Hem Pathologist Commnt No 12/24/19 04:53 PT 13.3 Sec. (12.2-14.9) 01/18/20 04:45 INR 1.03 (0.87-1.13) 01/18/20 04:45 APTT 29.4 Sec. (24.2-36.6) 12/18/19 14:45 D-Dimer 534.45 ng/mlDDU (0-234) H 12/18/19 14:45 ABG pH 7.223 pH Units (7.350-7.450) L 01/13/20 15:10 ABG pCO2 82.3 mm Hg 01/13/20 15:10 ABG pO2 81.4 mm Hg (80.0-90.0) 01/13/20 15:10 ABG HCO3 33.1 mmol/L (20.0-26.0) H 01/13/20 15:10 ABG O2 Saturation 94.7 % (95.0-99.0) L 01/13/20 15:10 ABG O2 Content 11.2 (0.0-44) 01/13/20 15:10 ABG Base Excess 4.2 mmol/L (-2.0-3.0) H 01/13/20 15:10 ABG Hemoglobin 8.5 gm/dl (14.0-18.0) L 01/13/20 15:10 ABG Carboxyhemoglobin 2.0 % (0.0-5.0) 01/13/20 15:10 ABG Methemoglobin 0.7 % (0.0-1.5) 01/13/20 15:10 Oxyhemoglobin 92.1 % (95.0-99.0) L 01/13/20 15:10 FiO2 50 % 01/13/20 15:10 Sodium 144 mmol/L (137-145) 01/19/20 05:45 Potassium 4.6 mmol/L (3.6-5.0) 01/19/20 05:45 Chloride 101.5 mmol/L (98-107) 01/19/20 05:45 Carbon Dioxide 34 mmol/L (22-30) H 01/19/20 05:45 Anion Gap 13 mmol/L 01/19/20 05:45 BUN 15 mg/dL (9-20) 01/19/20 05:45 Creatinine 0.9 mg/dL (0.8-1.5) 01/19/20 05:45 Estimated GFR > 60 ml/min 01/19/20 05:45 BUN/Creatinine Ratio 17 % 01/19/20 05:45 Glucose 167 mg/dL (75-100) H 01/19/20 05:45 POC Glucose 182 (70-105) H 01/19/20 06:16 Lactic Acid 1.70 mmol/L (0.7-2.0) 12/30/19 05:06 Calcium 8.6 mg/dL (8.4-10.2) 01/19/20 05:45 Phosphorus 3.70 mg/dL (2.5-4.5) 12/27/19 03:48 Magnesium 2.60 mg/dL (1.7-2.3) H 12/30/19 05:06 Ferritin 83.4 ng/mL (13.0-400.0) 12/18/19 14:45 Total Bilirubin 0.20 mg/dL (0.1-1.2) 01/11/20 05:45 AST 67 units/L (5-40) H 01/11/20 05:45 ALT 45 units/L (7-56) 01/11/20 05:45 Alkaline Phosphatase 111 units/L (35-129) 01/11/20 05:45 Ammonia 39.0 umol/L (25-60) 12/18/19 14:45 Lactate Dehydrogenase 235 units/L (91-180) H 12/18/19 14:45 Lactate Dehydrogenase 236 units/L (91-180) H 12/18/19 14:45 Total Creatine Kinase 40 units/L (55-170) L 12/18/19 14:45 Troponin T 0.011 ng/mL (0.00-0.029) 12/18/19 14:45 C-Reactive Protein 8.40 mg/dL (0.00-1.30) H 12/18/19 14:45 C-Reactive Protein 8.50 mg/dL (0.00-1.30) H 12/18/19 14:45 Total Protein 5.9 g/dL (6.3-8.2) L 01/11/20 05:45 Albumin 2.8 g/dL (3.9-5) L 01/11/20 05:45 Albumin/Globulin Ratio 0.9 % 01/11/20 05:45 Procalcitonin 0.22 ng/mL (<0.15) 12/18/19 14:45 TSH 1.460 mlU/mL (0.270-4.200) 01/13/20 20:37 Free T4 0.63 ng/dL (0.76-1.46) L 01/13/20 20:37 Urine Color Yellow (Yellow) 12/19/19 16:50 Urine Turbidity Clear (Clear) 12/19/19 16:50 Urine pH 5.0 (5.0-7.0) 12/19/19 16:50 Ur Specific [place] 1.010 (1.003-1.030) 12/19/19 16:50 Urine Protein <15 mg/dl mg/dL (Negative) 12/19/19 16:50 Urine Glucose (UA) 150 mg/dL (Negative) 12/19/19 16:50 Urine Ketones Neg mg/dL (Negative) 12/19/19 16:50 Urine Blood Neg (Negative) 12/19/19 16:50 Urine Nitrite Neg (Negative) 12/19/19 16:50 Urine Bilirubin Neg (Negative) 12/19/19 16:50 Urine Urobilinogen < 2.0 mg/dL (<2.0) 12/19/19 16:50 Ur Leukocyte Esterase Tr (Negative) 12/19/19 16:50 Urine WBC (Auto) 7.0 /HPF (0.0-6.0) H 12/19/19 16:50 Urine RBC (Auto) 4.0 /HPF (0.0-6.0) 12/19/19 16:50 U Epithel Cells (Auto) 1.0 /HPF (0-13.0) 12/19/19 16:50 Urine Bacteria (Auto) 1+ /HPF (Negative) 12/19/19 16:50 Urine Mucus Few /HPF 12/19/19 16:50 Urine Osmolality 140 Mosm/kg 12/25/19 16:45 Urine Creatinine < 4.2 mg/dL (0.1-20.0) 12/25/19 16:45 Urine Sodium 10 mmol/L 12/25/19 16:45 Urine Total Protein < 4 mg/dL (5-11.8) L 12/25/19 16:45 Digoxin 0.3 ng/mL (0.9-2.0) L 12/18/19 14:45 Salicylates < 0.3 mg/dL (2.8-20.0) L 12/18/19 14:45 Acetaminophen < 5.0 ug/mL (10.0-30.0) L 12/18/19 14:45 Plasma/Serum Alcohol < 0.01 % (0-0.07) 12/18/19 14:45 Coronavirus (PCR) Negative (Negative) 12/21/19 14:45 AFB Identification 01/05/20 09:05 Fungal Id Prelim 01/05/20 09:05 Blood Type A POSITIVE 01/18/20 04:45 Antibody Screen Negative 01/18/20 04:45 - Diagnostic Impressions Diagnostic Impressions: Echocardiogram 12/28/19 14:07 Transthoracic Echocardiogram Indication: SOB BP: 95/51 HR: 99 Conclusions *The left ventricular chamber size is mildly dilated. *There is no left ventricular hypertrophy. *Global left ventricular systolic function is mildly decreased. *The estimated ejection fraction is 45-50%. *Abnormal left ventricular diastolic filling is observed, consistent with impaired relaxation. *The right ventricular global systolic function is mildly reduced. *The right ventricular systolic pressure is calculated at 53 mmHg. Findings Left Ventricle: The left ventricular chamber size is mildly dilated. There is no left ventricular hypertrophy. Global left ventricular systolic function is mildly decreased. The estimated ejection fraction is 45-50%. Abnormal left ventricular diastolic filling is observed, consistent with impaired relaxation. Left Atrium: The left atrial chamber size is normal. Right Ventricle: The right ventricular cavity size is normal. The right ventricular global systolic function is mildly reduced. Right Atrium: The right atrial cavity size is normal. Aortic Valve: The aortic valve leaflets are mildly thickened. There is no evidence of aortic regurgitation. Mitral Valve: The mitral valve leaflets are mildly thickened. There is no evidence of mitral regurgitation. Tricuspid Valve: The tricuspid valve leaflets are normal. There is mild tricuspid regurgitation. The right ventricular systolic pressure is calculated at 53 mmHg. Pulmonic Valve: The pulmonic valve appears normal. There is trace pulmonic regurgitation. Pericardium: There is no pericardial effusion. Aorta: The aorta appears normal. Venous: The inferior vena cava is dilated. Measurements Chambers 2D Name Value Normal Range IVSd (2D) 1.08 cm (0.6 - 1.1) LVPWd (2D) 1 cm (0.6 - 1.1) LVIDd (2D) 4.67 cm (3.7 - 5.6) LVIDs (2D) 3.89 cm (2 - 3.8) LV FS (2D) 16.76 % - EF Teichholz (2D) 35.14 % - Ao root diameter (2D) 2.86 cm (2 - 3.7) Volumes/Mass Name Value Normal Range LA ESV SP 4CH (A/L) 31.8 ml - LA ESV SP 2CH (A/L) 27.37 ml - LA ESV BP (A/L) 33.43 ml - LA ESV BP (A/L) index 14.11 ml/m2 - LA ESV SP 4CH (MOD) 26.83 ml - LA ESV SP 2CH (MOD) 29.59 ml - LA ESV BP (MOD) 30.47 ml - LA ESV BP (MOD) index 12.86 ml/m2 - Diastolic/Systolic Function Name Value Normal Range MV E-wave Vmax 0.39 m/sec - MV deceleration time 115.69 msec - MV A-wave Vmax 0.63 m/sec - MV E:A ratio 0.62 ratio - Aortic Valve Name Value Normal Range AV Vmax 1.14 m/sec - AV VTI 20.1 cm - AV peak gradient 5.17 mmHg - AV mean gradient 3.89 mmHg - LVOT diameter 2.02 cm - LVOT Vmax 0.99 m/sec - LVOT VTI 16.45 cm - LVOT peak gradient 3.95 mmHg - LVOT mean gradient 2.45 mmHg - SV LVOT 52.45 ml - RALPH (continuity Vmax) 2.78 cm2 - RALPH (continuity VTI) 2.61 cm2 - Tricuspid Valve Name Value Normal Range TR Vmax 3.36 m/sec - TR peak gradient 45 mmHg - RAP 8 mmHg - RVSP 53 mmHg - IVC diameter 2.33 cm (1.2 - 2.3) Pulmonic Valve/Qp:Qs Name Value Normal Range PV Vmax 0.89 m/sec - PV peak gradient 3.16 mmHg - ND end-diastolic Vmax 1.42 m/sec - PV acceleration time 79.92 msec - Sykes/IV: Voiding Method Condom Catheter IV Catheter Type [Right Upper PICC Line arm] IV Catheter Type [Right Leg] Intra-osseous IV Catheter Type [Right Wrist] Peripheral IV IV Catheter Type [Right Hand] INT / Saline Lock IV Catheter Type [Left Hand] INT / Saline Lock IV Catheter Type [Left Forearm INT / Saline Lock ] IV Catheter Type [Left Triple Lumen Cath Internal Jugular] Active Medications - Current Medications Current Medications: Generic Name Dose Route Start Last Admin Trade Name Johnny PRN Reason Stop Dose Admin Acetaminophen 650 mg 12/29/19 09:21 01/03/20 18:31 Tylenol PO 650 mg Q4H PRN Administration Non Cardiac Pain or Temp>100.5 Albuterol/Ipratropium 1 ampul 12/18/19 14:00 01/19/20 16:42 Duoneb *Not For Prn Use* IH 1 ampul TIDRT SHANEL Administration Lipase/Protease/Amylase 1 each 12/19/19 08:29 Pancreporfirioe 10,500 Unit FEEDTUBE PRN PRN For Clogged Feeding Tube Atropine Sulfate 1 mg 01/09/20 13:50 01/10/20 18:00 Atropine 0.1% (Cardiac) IV 1 mg PRN PRN Administration Bradycardia Bisacodyl 10 mg 01/02/20 15:48 01/02/20 18:25 Dulcolax ND 10 mg QDAY PRN Administration Constipation Dextrose 50 ml 01/18/20 08:22 01/18/20 09:17 D50w (25gm) Syringe IV 50 ml Q30MIN PRN Administration Hypoglycemia Protocol Docusate Sodium 100 mg 01/01/20 22:00 01/19/20 09:01 Colace PO 100 mg BID SHANEL Administration Famotidine 20 mg 12/20/19 10:00 01/19/20 09:01 Pepcid PO 20 mg BID SHANEL Administration Fentanyl 50 mcg 12/27/19 16:57 01/17/20 03:21 Sublimaze IV 50 mcg Q10MIN PRN Administration ANALGESIA Hydrophilic Ointment 1 applic 12/18/19 12:35 Vaseline Lip Therapy TP Q2HR PRN Dry Lips Fentanyl Citrate 2,000 mcg in 100 mls @ 5.85 mls/hr 12/27/19 17:00 01/19/20 13:34 Fentanyl Drip Premix IV 2 mcg/kg/hr TITR SHANEL 11.7 mls/hr Administration Protocol 1 MCG/KG/HR Norepinephrine 4 mg in 250 mls @ 7.5 mls/hr 12/28/19 15:00 01/18/20 14:30 Levophed Drip 4 Mg/Ns 250 Ml IV 0 mcg/min TITR SHANEL 0 mls/hr Titration Protocol 2 MCG/MIN Vasopressin 20 unit/ Sodium 101 mls @ 9.09 mls/hr 12/30/19 12:30 01/01/20 13:44 Chloride IV 0 units/min TITR SHANEL 0 mls/hr Titration Protocol 0.03 UNITS/MIN Dopamine HCl/Dextrose 800 mg in 250 mls @ 4.388 mls/hr 12/31/19 16:00 01/19/20 15:06 Intropin Drip 800 Mg/D5w 250 Ml IV 2 mcg/kg/min TITR SHANEL 4.388 mls/hr Titration Protocol 2 MCG/KG/MIN Dextrose 1,000 mls @ 75 mls/hr 01/16/20 12:00 01/19/20 07:43 D5w IV 75 mls/hr DIRECT SHANEL Administration Insulin Glargine 15 units 01/10/20 14:00 01/19/20 09:01 Lantus SUB-Q 15 units BID SHANEL Administration Insulin Human Lispro 0 unit 12/31/19 14:00 01/19/20 13:34 Humalog SUB-Q 4 unit Q4HR SHANEL Administration Protocol Levothyroxine Sodium 88 mcg 12/19/19 06:00 01/19/20 05:30 Synthroid PO 88 mcg QAM@0600 SHANEL Administration Multi-Ingred Cream/Lotion/Oil/Oint 1 applic 12/18/19 12:35 Artificial Tears Ophth Oint OU Q4HR PRN Dry Eye(s) Polyethylene Glycol 17 gm 01/01/20 22:00 01/18/20 23:13 Miralax 3350 PO 17 gm QHS SHANEL Administration Simple Syrup 15 ml 12/19/19 08:29 01/06/20 04:58 Simple Syrup FEEDTUBE 15 ml PRN PRN Administration Hypoglycemia Simple Syrup 30 ml 12/19/19 08:29 Simple Syrup FEEDTUBE PRN PRN Hypoglycemia Sodium Bicarbonate 325 mg 12/19/19 08:29 Sodium Bicarbonate FEEDTUBE PRN PRN For Clogged Feeding Tube Sodium Chloride 10 ml 12/18/19 22:00 01/19/20 09:01 Sodium Chloride Flush Syringe 10 Ml IV 10 ml BID SHANEL Administration Sodium Chloride 10 ml 12/18/19 13:31 Sodium Chloride Flush Syringe 10 Ml IV PRN PRN LINE FLUSH Nutrition/Malnutrition Assess - Dietary Evaluation Nutrition/Malnutrition Findings: Nutrition Notes Start: 12/19/19 08:16 Freq: Status: Active Protocol: Document 01/17/20 09:35 LP (Rec: 01/17/20 09:37 LP [id number]) Nutrition Notes Initial or Follow up Reassessment Current Diagnosis Diabetes,Sepsis,Hypertension, Heart Failure,Respiratory Failure Other Pertinent Diagnosis COVID-19 (-), pneu Current Diet Vital AF 1.2 at 65ml/hr Labs/Tests Na 148 BUN 21 Pertinent Medications Reviewed Height 6 ft 2 in Weight 117 kg [place] Body Weight (kg) 86.36 BMI 33.1 Weight Status Obese Subjective/Other Information Pt tolerating TF at goal rate. Percent of energy/protein needs met: 94%/68% Burn Absent Trauma Absent Current % PO Negligible Minimum of two criteria No physical signs of malnutrition #1 Nutrition Diagnosis Inadequate oral intake Diagnosis Progress(for reassessment Continues documentation) Is patient on ventilator? Yes Is Patient Ambulatory and/or Out of Bed No REE-([place]-confined to bed) 2469.960 Kcal/Kg value to use for calculation 17 Approximate Energy Requirements Using 1989 kcal/Kg Calculation Used for Recommendations Kcal/kg Additional Notes Protein: 172g (>/=2g/kg using IBW 86kg) Fluid 1ml/kcal Nutrition Intervention Change Diet Order: TF Nutrition Support: Vital AF 1.2 at 65ml/hr Flush 250ml q4h for hypernatremia Flush 100ml q4h Kcal 1,872 Protein (gm) 117 Fluid (mL) 1,265 Goal #1 TF tolerance Goal #2 Meet at least 75% of energy and protein needs Anticipated Discharge Needs: unable to determine at this time Follow-Up By: 01/20/20 Additional Comments Follow for TF tolerance and Na levels
[2020-01-19] MEDS: POLYETHYLENE GLYCOL 3350 17 GM POWDER PO SCH (22:00)
[2020-01-19] MEDS: fentaNYL 100 MCG/2 ML INJ IV PRN (22:00)
[2020-01-20] MEDS: fentaNYL DRIP Premix 2,000 MCG/100 ML BAG IV SCH ×4 (02:15→22:51)
[2020-01-20] MEDS: INSULIN LISPRO 100 UNIT/ML SUB-Q SCH ×4 (02:38→17:09)
[2020-01-20] MEDS: LEVOTHYROXINE 88 MCG TAB PO SCH (06:22)
[2020-01-20] MEDS: IPRATROPIUM/ALBUTEROL SULFATE 3 ML AMPUL.NEB IH SCH ×3 (08:23→20:25)
[2020-01-20] MEDS: DOCUSATE SODIUM 100 MG/10 ML ORAL LIQD PO SCH ×2 (10:42→23:22)
[2020-01-20] MEDS: FAMOTIDINE 20 MG TAB PO SCH ×2 (10:42→23:22)
[2020-01-20] MEDS: INSULIN GLARGINE 100 UNITS/ML SUB-Q SCH ×2 (10:45→22:00)
--- NOTE | 2020-01-20 11:14 | Progress Note ---
Assessment and Plan - Patient Problems (1) Bradycardia Current Visit: Yes Status: Acute Plan to address problem: Bradycardia has resolved, sinus rhythm at 76, with no pressors on board. (2) Cardiomyopathy Current Visit: Yes Status: Acute Plan to address problem: Echocardiogram reviewed, showed a moderate severity dilated cardiomyopathy with estimated ejection fraction 35 to 40%. Continue conservative supportive cardiac management at this time until hemodynamics support introduction of guideline directed medical therapies. Subjective Date of service: 01/20/20 Principal diagnosis: Ac. Hypoxemic Resp Failure; Septic Shock; Magdiel. PNA; PUI COVID-19; CHF; JOE Interval history: Patient is sedated, has a trach and is on the vent. On court recording monitor, there is a sinus rhythm at 76. The dopamine is off, and blood pressure is 95 systolic. Objective Vital Signs Temp Pulse Pulse Pulse Resp Resp BP 01/20/20 11:00 70 14 99/57 01/20/20 10:45 71 14 92/53 01/20/20 10:30 79 14 96/51 01/20/20 10:15 79 14 93/49 01/20/20 10:00 76 14 93/49 01/20/20 09:45 74 14 97/54 01/20/20 09:30 74 14 96/48 01/20/20 09:20 74 14 01/20/20 09:15 75 14 96/49 01/20/20 09:00 75 14 95/50 01/20/20 08:45 71 14 98/48 01/20/20 08:30 68 14 111/57 01/20/20 08:21 88 102/52 01/20/20 08:16 74 14 102/52 01/20/20 08:00 96.8 F L 66 14 120/57 01/20/20 07:45 86 17 130/64 01/20/20 07:30 75 14 121/67 01/20/20 07:15 72 14 143/64 01/20/20 07:00 74 15 137/62 01/20/20 06:45 74 14 128/67 01/20/20 06:30 73 14 138/57 01/20/20 06:16 88 19 129/64 01/20/20 06:00 74 14 120/64 01/20/20 05:45 75 16 148/67 01/20/20 05:30 82 28 H 127/61 01/20/20 05:15 78 15 127/61 01/20/20 05:00 78 17 120/63 01/20/20 04:45 77 15 123/57 01/20/20 04:40 84 17 01/20/20 04:30 76 16 128/58 01/20/20 04:15 85 19 123/66 01/20/20 04:00 97.0 F L 90 18 134/59 01/20/20 03:45 80 15 129/57 01/20/20 03:30 81 17 123/67 01/20/20 03:15 86 16 128/64 01/20/20 03:00 87 16 124/67 01/20/20 02:45 93 H 16 140/68 01/20/20 02:30 91 H 18 139/68 01/20/20 02:15 90 21 144/81 01/20/20 02:00 84 21 138/69 01/20/20 01:45 96 H 18 130/82 01/20/20 01:30 84 15 138/69 01/20/20 01:15 81 17 138/64 01/20/20 01:00 87 16 144/60 01/20/20 00:47 87 137/66 01/20/20 00:45 85 17 137/66 01/20/20 00:30 81 18 144/70 01/20/20 00:15 89 18 139/73 01/20/20 00:00 96.0 F L 82 16 152/72 01/19/20 23:45 81 14 137/66 01/19/20 23:30 84 16 139/74 01/19/20 23:15 85 22 140/79 01/19/20 23:00 94 H 16 128/76 01/19/20 22:45 99 H 18 133/79 01/19/20 22:30 131/74 01/19/20 22:16 140/73 01/19/20 22:00 76 15 133/72 01/19/20 21:46 89 17 133/72 01/19/20 21:30 85 24 115/75 01/19/20 21:16 76 15 107/63 01/19/20 21:00 87 16 107/63 01/19/20 20:50 78 78 14 01/19/20 20:46 78 18 107/63 01/19/20 20:30 76 18 118/58 01/19/20 20:16 74 17 118/58 01/19/20 20:00 96.1 F L 69 90 15 103/51 01/19/20 19:46 74 19 105/63 01/19/20 19:30 73 16 108/57 01/19/20 19:16 67 15 103/51 01/19/20 19:00 77 19 102/58 01/19/20 18:30 88 17 99/42 01/19/20 18:00 66 15 99/42 01/19/20 17:46 67 14 99/42 01/19/20 17:30 67 17 99/42 01/19/20 17:16 78 20 103/68 01/19/20 17:00 80 21 103/68 01/19/20 16:46 70 15 103/68 01/19/20 16:30 71 19 103/68 01/19/20 16:15 76 16 103/68 01/19/20 16:00 97.5 F L 83 73 14 116/70 01/19/20 15:45 81 18 129/78 01/19/20 15:30 76 17 123/72 01/19/20 15:15 75 16 108/66 01/19/20 15:00 70 14 116/59 01/19/20 14:46 80 13 171/88 01/19/20 14:30 67 15 181/89 01/19/20 14:15 72 17 172/93 01/19/20 14:00 53 L 83 14 20 159/76 01/19/20 13:45 54 L 14 145/74 01/19/20 13:30 82 12 124/89 01/19/20 13:15 57 L 14 111/56 01/19/20 13:00 58 L 14 111/57 01/19/20 12:46 68 16 105/57 01/19/20 12:30 56 L 14 160/82 01/19/20 12:15 63 15 153/81 01/19/20 12:00 97.8 F 63 65 14 145/77 01/19/20 11:45 56 L 14 142/70 01/19/20 11:30 61 14 155/86 01/19/20 11:17 65 155/86 01/19/20 11:16 75 14 155/86 Pulse Ox Pulse Ox 01/20/20 11:00 96 01/20/20 10:45 97 01/20/20 10:30 96 01/20/20 10:15 95 01/20/20 10:00 95 01/20/20 09:45 96 01/20/20 09:30 93 01/20/20 09:20 01/20/20 09:15 92 01/20/20 09:00 94 01/20/20 08:45 94 01/20/20 08:30 96 01/20/20 08:21 100 01/20/20 08:16 95 01/20/20 08:00 95 01/20/20 07:45 93 01/20/20 07:30 92 01/20/20 07:15 93 01/20/20 07:00 91 01/20/20 06:45 94 01/20/20 06:30 92 01/20/20 06:16 94 01/20/20 06:00 93 01/20/20 05:45 92 01/20/20 05:30 97 01/20/20 05:15 95 01/20/20 05:00 95 01/20/20 04:45 95 01/20/20 04:40 95 01/20/20 04:30 93 01/20/20 04:15 96 01/20/20 04:00 95 01/20/20 03:45 95 01/20/20 03:30 96 01/20/20 03:15 96 01/20/20 03:00 97 01/20/20 02:45 97 01/20/20 02:30 97 01/20/20 02:15 96 01/20/20 02:00 92 01/20/20 01:45 100 01/20/20 01:30 100 01/20/20 01:15 99 01/20/20 01:00 99 01/20/20 00:47 98 01/20/20 00:45 99 01/20/20 00:30 100 01/20/20 00:15 99 01/20/20 00:00 99 100 01/19/20 23:45 99 01/19/20 23:30 99 01/19/20 23:15 100 01/19/20 23:00 99 01/19/20 22:45 92 01/19/20 22:30 97 01/19/20 22:16 96 01/19/20 22:00 96 01/19/20 21:46 97 01/19/20 21:30 100 01/19/20 21:16 01/19/20 21:00 100 01/19/20 20:50 100 01/19/20 20:46 95 01/19/20 20:30 99 01/19/20 20:16 100 01/19/20 20:00 99 01/19/20 19:46 100 01/19/20 19:30 98 01/19/20 19:16 99 01/19/20 19:00 98 01/19/20 18:30 98 01/19/20 18:00 100 01/19/20 17:46 99 01/19/20 17:30 96 01/19/20 17:16 01/19/20 17:00 97 01/19/20 16:46 96 01/19/20 16:30 99 01/19/20 16:15 100 01/19/20 16:00 98 97 01/19/20 15:45 98 01/19/20 15:30 92 01/19/20 15:15 97 01/19/20 15:00 98 01/19/20 14:46 96 01/19/20 14:30 96 01/19/20 14:15 93 01/19/20 14:00 98 01/19/20 13:45 97 01/19/20 13:30 96 01/19/20 13:15 97 01/19/20 13:00 97 01/19/20 12:46 95 01/19/20 12:30 97 01/19/20 12:15 100 01/19/20 12:00 98 01/19/20 11:45 98 01/19/20 11:30 01/19/20 11:17 96 01/19/20 11:16 92 - Physical Examination General: Other (Sedated, with a trach on the vent) HEENT: Positive: PERRL Neck: Positive: neck supple, Other (vent to trach) Cardiac: Positive: Reg Rate and Rhythm Lungs: Positive: Decreased Breath Sounds Neuro: Positive: Other (Sedated, with a trach on the vent) Abdomen: Positive: Soft Skin: Positive: Clear Extremities: Absent: edema - Allied health notes Allied health notes reviewed: RT
--- NOTE | 2020-01-20 14:20 | Progress Note ---
Assessment and Plan Acute Hypoxemic-hypercapnic Respiratory Failure s/p trach Severe Sepsis with Shock Bilateral Pneumonia Bradycardia JAGDEEP secondary to ATN, non oliguric Hypernatremia, resolved Morbid Obesity H/O CHF JOE -Trach care, airway clearance, secretion management -Wean supplemetnal oxygen to keep O2 sats >90% -Daily SAT and SBT assessment as tolerated -CXR and ABG now - Continue Free water at 250 cc q4 and hypotonic solutions for hypernatremia -Continue to monitor off antibiotics, trend temperature curve and WCC -Continue with bowel regimen - Continue care as below otherwise -Discharge planning- trach for chronic weaning - accuchecks with glycemic control per SSI (While critically ill target blood glucose of 140-180 mg/dL; avoid hypoglycemia) - sedation for target RASS 0 to -1 - continue to wean supplemental oxygen for target O2 sat's > 92% - continue bronchodilators with pulmonary hygiene per RT - VAP bundle addressed - lung protective strategies - wean per pulmonary driven protocols otherwise - continue to avoid benzodiazepines, reduce the possibility of delirium - prn analgesia per CPOT score - Maintenance of sleep-wake cycle - continue enteral nutritional support at goal rate as tolerated - G.I. & VTE prophylaxis - PT/OT/ROM exercises - continue mobility protocols for pressure ulcer prophylaxis - repeat COVID-19 test negative - continue aspiration precautions - continue other care per attending / other consultants .... Re-evaluate in am & prn CONDITION: CRITICAL PROGNOSIS: FAIR CODE STATUS: FULL CODE The high probability of a clinically significant, sudden or life-threatening deterioration of the [respiratory, cardiovascular, GI & neurologic] system(s) required my full and direct attention, intervention and personal management. The aggregate critical care time was [31] minutes without overlap. Time includes spent on; [x] Data Review and interpretation [x] Patient assessment and monitoring of vital signs [x] Documentation [x] Medication orders and management Subjective Date of service: 01/20/20 Principal diagnosis: Ac. Hypoxemic Resp Failure; Septic Shock; Magdiel. PNA; PUI COVID-19; CHF; JOE Interval history: Patient is seen today for: Acute Hypoxemic Respiratory Failure; Severe Sepsis with Shock; Bilateral Pneumonia; PUI COVID-19; Morbid Obesity; H/O CHF; JOE Seen and examined at bedside; 24hour events reviewed; nursing and respiratory care staff consulted; no adverse overnight events reported to me; resting peacefully in bed; remains on MVS; No fevers, s/p trach and PEG placement Objective Vital Signs - 12hr 01/20/20 01/20/20 01/20/20 02:30 02:45 03:00 Temperature Pulse Rate 91 H 93 H 87 Pulse Rate [ Bilateral] Pulse Rate [ From Monitor] Respiratory 18 16 16 Rate Respiratory Rate [Bilateral ] Blood Pressure 139/68 140/68 124/67 O2 Sat by Pulse 97 97 97 Oximetry O2 Sat by Pulse Oximetry [ Assessment] 01/20/20 01/20/20 01/20/20 03:15 03:30 03:45 Temperature Pulse Rate 86 81 80 Pulse Rate [ Bilateral] Pulse Rate [ From Monitor] Respiratory 16 17 15 Rate Respiratory Rate [Bilateral ] Blood Pressure 128/64 123/67 129/57 O2 Sat by Pulse 96 96 95 Oximetry O2 Sat by Pulse Oximetry [ Assessment] 01/20/20 01/20/20 01/20/20 04:00 04:15 04:30 Temperature 97.0 F L Pulse Rate 90 85 76 Pulse Rate [ Bilateral] Pulse Rate [ From Monitor] Respiratory 18 19 16 Rate Respiratory Rate [Bilateral ] Blood Pressure 134/59 123/66 128/58 O2 Sat by Pulse 95 96 93 Oximetry O2 Sat by Pulse Oximetry [ Assessment] 01/20/20 01/20/20 01/20/20 04:40 04:45 05:00 Temperature Pulse Rate 77 78 Pulse Rate [ Bilateral] Pulse Rate [ 84 From Monitor] Respiratory 17 15 17 Rate Respiratory Rate [Bilateral ] Blood Pressure 123/57 120/63 O2 Sat by Pulse 95 95 95 Oximetry O2 Sat by Pulse Oximetry [ Assessment] 01/20/20 01/20/20 01/20/20 05:15 05:30 05:45 Temperature Pulse Rate 78 82 75 Pulse Rate [ Bilateral] Pulse Rate [ From Monitor] Respiratory 15 28 H 16 Rate Respiratory Rate [Bilateral ] Blood Pressure 127/61 127/61 148/67 O2 Sat by Pulse 95 97 92 Oximetry O2 Sat by Pulse Oximetry [ Assessment] 01/20/20 01/20/20 01/20/20 06:00 06:16 06:30 Temperature Pulse Rate 74 88 73 Pulse Rate [ Bilateral] Pulse Rate [ From Monitor] Respiratory 14 19 14 Rate Respiratory Rate [Bilateral ] Blood Pressure 120/64 129/64 138/57 O2 Sat by Pulse 93 94 92 Oximetry O2 Sat by Pulse Oximetry [ Assessment] 01/20/20 01/20/20 01/20/20 06:45 07:00 07:15 Temperature Pulse Rate 74 74 72 Pulse Rate [ Bilateral] Pulse Rate [ From Monitor] Respiratory 14 15 14 Rate Respiratory Rate [Bilateral ] Blood Pressure 128/67 137/62 143/64 O2 Sat by Pulse 94 91 93 Oximetry O2 Sat by Pulse Oximetry [ Assessment] 01/20/20 01/20/20 01/20/20 07:30 07:45 08:00 Temperature 96.8 F L Pulse Rate 75 86 66 Pulse Rate [ Bilateral] Pulse Rate [ From Monitor] Respiratory 14 17 14 Rate Respiratory Rate [Bilateral ] Blood Pressure 121/67 130/64 120/57 O2 Sat by Pulse 92 93 95 Oximetry O2 Sat by Pulse Oximetry [ Assessment] 01/20/20 01/20/20 01/20/20 08:16 08:21 08:30 Temperature Pulse Rate 74 88 68 Pulse Rate [ Bilateral] Pulse Rate [ From Monitor] Respiratory 14 14 Rate Respiratory Rate [Bilateral ] Blood Pressure 102/52 102/52 111/57 O2 Sat by Pulse 95 100 96 Oximetry O2 Sat by Pulse Oximetry [ Assessment] 01/20/20 01/20/20 01/20/20 08:45 09:00 09:15 Temperature Pulse Rate 71 75 75 Pulse Rate [ Bilateral] Pulse Rate [ From Monitor] Respiratory 14 14 14 Rate Respiratory Rate [Bilateral ] Blood Pressure 98/48 95/50 96/49 O2 Sat by Pulse 94 94 92 Oximetry O2 Sat by Pulse Oximetry [ Assessment] 01/20/20 01/20/20 01/20/20 09:20 09:30 09:45 Temperature Pulse Rate 74 74 Pulse Rate [ 74 Bilateral] Pulse Rate [ From Monitor] Respiratory 14 14 Rate Respiratory 14 Rate [Bilateral ] Blood Pressure 96/48 97/54 O2 Sat by Pulse 93 96 Oximetry O2 Sat by Pulse Oximetry [ Assessment] 01/20/20 01/20/20 01/20/20 10:00 10:15 10:30 Temperature Pulse Rate 76 79 79 Pulse Rate [ Bilateral] Pulse Rate [ From Monitor] Respiratory 14 14 14 Rate Respiratory Rate [Bilateral ] Blood Pressure 93/49 93/49 96/51 O2 Sat by Pulse 95 95 96 Oximetry O2 Sat by Pulse Oximetry [ Assessment] 01/20/20 01/20/20 01/20/20 10:45 11:00 11:15 Temperature Pulse Rate 71 70 75 Pulse Rate [ Bilateral] Pulse Rate [ From Monitor] Respiratory 14 14 14 Rate Respiratory Rate [Bilateral ] Blood Pressure 92/53 99/57 104/51 O2 Sat by Pulse 97 96 94 Oximetry O2 Sat by Pulse Oximetry [ Assessment] 01/20/20 01/20/20 01/20/20 11:30 11:45 12:00 Temperature Pulse Rate 78 76 74 Pulse Rate [ Bilateral] Pulse Rate [ From Monitor] Respiratory 14 14 14 Rate Respiratory Rate [Bilateral ] Blood Pressure 90/50 91/50 97/49 O2 Sat by Pulse 94 95 96 Oximetry O2 Sat by Pulse Oximetry [ Assessment] 01/20/20 01/20/20 01/20/20 12:15 12:30 12:46 Temperature Pulse Rate 76 74 92 H Pulse Rate [ Bilateral] Pulse Rate [ From Monitor] Respiratory 14 14 14 Rate Respiratory Rate [Bilateral ] Blood Pressure 94/51 98/50 124/67 O2 Sat by Pulse 95 94 96 Oximetry O2 Sat by Pulse Oximetry [ Assessment] 01/20/20 01/20/20 01/20/20 12:47 12:49 13:00 Temperature Pulse Rate 72 74 Pulse Rate [ Bilateral] Pulse Rate [ From Monitor] Respiratory 14 Rate Respiratory Rate [Bilateral ] Blood Pressure 124/67 124/67 O2 Sat by Pulse 94 94 Oximetry O2 Sat by Pulse 94 Oximetry [ Assessment] Constitutional: no acute distress, other (elderly obese AAM with normal resp effort, s/p trach to MVS) Eyes: non-icteric ENT: oropharynx moist, other (s/p trach) Neck: supple, no lymphadenopathy, no JVD Effort: normal Ascultation: Bilateral: diminished breath sounds, rhonchi, other (diminished bibasilar air entry) Percussion: Bilateral: not dull Cardiovascular: regular rate and rhythm (Bradycardia), other (S1,S2) Gastrointestinal: normoactive bowel sounds, soft, non-tender, other (protuberant, s/p PEG) Integumentary: rash (stasis dermatyitis) Extremities: no cyanosis, pink and warm, pulses normal, no ischemia or petechiae, edema (trace, chronic hypertrophic dry skin) Neurologic: pupils equal and round, other (sedated but responds to tactile and verbal stimuli with eye opening and tracking) Psychiatric: other (unable to assess-sedated) CBC and BMP: 01/19/20 05:45 01/19/20 05:45 ABG, PT/INR, D-dimer: ABG ABG pH 7.223 pH Units (7.350-7.450) L 01/13/20 15:10 ABG pCO2 82.3 mm Hg 01/13/20 15:10 ABG pO2 81.4 mm Hg (80.0-90.0) 01/13/20 15:10 ABG O2 Saturation 94.7 % (95.0-99.0) L 01/13/20 15:10 PT/INR, D-dimer PT 13.3 Sec. (12.2-14.9) 01/18/20 04:45 INR 1.03 (0.87-1.13) 01/18/20 04:45 D-Dimer 534.45 ng/mlDDU (0-234) H 12/18/19 14:45 Abnormal lab findings: Abnormal Labs 12/18/19 12/18/19 12/18/19 12:23 14:45 14:45 WBC RBC Hgb 10.4 L Hct 35.2 L MCV MCH 25 L MCHC 30 L RDW 18.8 H Plt Count Lymph % (Auto) [place] % (Auto) 11.6 H Eos % (Auto) 4.8 H Baso % (Auto) Lymph # [place] # 1.0 H Eos # Baso # Seg Neutrophils % Monocytes % (Manual) Monocytes # (Manual) D-Dimer ABG pH ABG pO2 ABG HCO3 ABG O2 Saturation ABG Base Excess ABG Hemoglobin Oxyhemoglobin Sodium Potassium Chloride Carbon Dioxide BUN Creatinine Glucose POC Glucose 328 H Lactic Acid Calcium Magnesium AST ALT Lactate Dehydrogenase Total Creatine Kinase 40 L C-Reactive Protein Total Protein Albumin Free T4 Urine WBC (Auto) Urine Total Protein Digoxin Salicylates Acetaminophen 12/18/19 12/18/19 12/18/19 14:45 14:45 14:45 WBC RBC Hgb Hct MCV MCH MCHC RDW Plt Count Lymph % (Auto) [place] % (Auto) Eos % (Auto) Baso % (Auto) Lymph # [place] # Eos # Baso # Seg Neutrophils % Monocytes % (Manual) Monocytes # (Manual) D-Dimer 534.45 H ABG pH ABG pO2 ABG HCO3 ABG O2 Saturation ABG Base Excess ABG Hemoglobin Oxyhemoglobin Sodium 156 H Potassium Chloride 112.3 H Carbon Dioxide 31 H BUN 32 H Creatinine Glucose 328 H POC Glucose Lactic Acid Calcium Magnesium AST ALT Lactate Dehydrogenase 235 H Total Creatine Kinase C-Reactive Protein 8.50 H Total Protein Albumin 3.6 L Free T4 Urine WBC (Auto) Urine Total Protein Digoxin 0.3 L Salicylates < 0.3 L Acetaminophen 12/18/19 12/18/19 12/18/19 14:45 14:45 16:00 WBC RBC Hgb Hct MCV MCH MCHC RDW Plt Count Lymph % (Auto) [place] % (Auto) Eos % (Auto) Baso % (Auto) Lymph # [place] # Eos # Baso # Seg Neutrophils % Monocytes % (Manual) Monocytes # (Manual) D-Dimer ABG pH ABG pO2 69.8 L ABG HCO3 31.8 H ABG O2 Saturation ABG Base Excess 5.4 H ABG Hemoglobin 10.0 L Oxyhemoglobin 92.9 L Sodium Potassium Chloride Carbon Dioxide BUN Creatinine Glucose 314 H POC Glucose Lactic Acid Calcium Magnesium AST ALT Lactate Dehydrogenase 236 H Total Creatine Kinase C-Reactive Protein 8.40 H Total Protein Albumin Free T4 Urine WBC (Auto) Urine Total Protein Digoxin Salicylates Acetaminophen < 5.0 L 12/18/19 12/18/19 12/18/19 16:35 18:30 22:56 WBC RBC Hgb Hct MCV MCH MCHC RDW Plt Count Lymph % (Auto) [place] % (Auto) Eos % (Auto) Baso % (Auto) Lymph # [place] # Eos # Baso # Seg Neutrophils % Monocytes % (Manual) Monocytes # (Manual) D-Dimer ABG pH ABG pO2 ABG HCO3 ABG O2 Saturation ABG Base Excess ABG Hemoglobin Oxyhemoglobin Sodium Potassium Chloride Carbon Dioxide BUN Creatinine Glucose POC Glucose 310 H 353 H Lactic Acid 2.50 H* Calcium Magnesium AST ALT Lactate Dehydrogenase Total Creatine Kinase C-Reactive Protein Total Protein Albumin Free T4 Urine WBC (Auto) Urine Total Protein Digoxin Salicylates Acetaminophen 12/19/19 12/19/19 12/19/19 04:13 04:13 06:00 WBC RBC Hgb 10.0 L Hct 34.2 L MCV MCH 25 L MCHC 29 L RDW 19.0 H Plt Count Lymph % (Auto) [place] % (Auto) 10.1 H Eos % (Auto) Baso % (Auto) Lymph # [place] # 1.1 H Eos # Baso # Seg Neutrophils % 71.8 H Monocytes % (Manual) Monocytes # (Manual) D-Dimer ABG pH ABG pO2 186.5 H ABG HCO3 27.8 H ABG O2 Saturation 99.1 H ABG Base Excess ABG Hemoglobin 10.4 L Oxyhemoglobin Sodium 157 H Potassium Chloride 119.1 H Carbon Dioxide BUN 26 H Creatinine Glucose 302 H POC Glucose Lactic Acid Calcium 7.9 L Magnesium AST 85 H ALT 61 H Lactate Dehydrogenase Total Creatine Kinase C-Reactive Protein Total Protein Albumin 3.0 L Free T4 Urine WBC (Auto) Urine Total Protein Digoxin Salicylates Acetaminophen 12/19/19 12/19/19 12/19/19 08:30 11:55 16:50 WBC RBC Hgb Hct MCV MCH MCHC RDW Plt Count Lymph % (Auto) [place] % (Auto) Eos % (Auto) Baso % (Auto) Lymph # [place] # Eos # Baso # Seg Neutrophils % Monocytes % (Manual) Monocytes # (Manual) D-Dimer ABG pH ABG pO2 ABG HCO3 ABG O2 Saturation ABG Base Excess ABG Hemoglobin Oxyhemoglobin Sodium Potassium Chloride Carbon Dioxide BUN Creatinine Glucose POC Glucose 264 H 251 H Lactic Acid Calcium Magnesium AST ALT Lactate Dehydrogenase Total Creatine Kinase C-Reactive Protein Total Protein Albumin Free T4 Urine WBC (Auto) 7.0 H Urine Total Protein Digoxin Salicylates Acetaminophen 12/19/19 12/19/19 12/20/19 17:41 23:42 03:35 WBC RBC Hgb Hct MCV MCH MCHC RDW Plt Count Lymph % (Auto) [place] % (Auto) Eos % (Auto) Baso % (Auto) Lymph # [place] # Eos # Baso # Seg Neutrophils % Monocytes % (Manual) Monocytes # (Manual) D-Dimer ABG pH ABG pO2 ABG HCO3 27.7 H ABG O2 Saturation ABG Base Excess ABG Hemoglobin 11.6 L Oxyhemoglobin 94.9 L Sodium Potassium Chloride Carbon Dioxide BUN Creatinine Glucose POC Glucose 180 H 205 H Lactic Acid Calcium Magnesium AST ALT Lactate Dehydrogenase Total Creatine Kinase C-Reactive Protein Total Protein Albumin Free T4 Urine WBC (Auto) Urine Total Protein Digoxin Salicylates Acetaminophen 12/20/19 12/20/19 12/20/19 04:45 04:45 05:27 WBC RBC Hgb 9.4 L Hct 31.4 L MCV MCH 25 L MCHC 30 L RDW 19.4 H Plt Count Lymph % (Auto) [place] % (Auto) 10.2 H Eos % (Auto) 6.0 H Baso % (Auto) Lymph # 0.9 L [place] # Eos # Baso # Seg Neutrophils % Monocytes % (Manual) Monocytes # (Manual) D-Dimer ABG pH ABG pO2 ABG HCO3 ABG O2 Saturation ABG Base Excess ABG Hemoglobin Oxyhemoglobin Sodium 153 H Potassium Chloride 114.6 H Carbon Dioxide BUN Creatinine Glucose 170 H POC Glucose 188 H Lactic Acid Calcium 7.9 L Magnesium AST ALT Lactate Dehydrogenase Total Creatine Kinase C-Reactive Protein Total Protein Albumin Free T4 Urine WBC (Auto) Urine Total Protein Digoxin Salicylates Acetaminophen 12/20/19 12/20/19 12/21/19 12:26 18:20 00:20 WBC RBC Hgb Hct MCV MCH MCHC RDW Plt Count Lymph % (Auto) [place] % (Auto) Eos % (Auto) Baso % (Auto) Lymph # [place] # Eos # Baso # Seg Neutrophils % Monocytes % (Manual) Monocytes # (Manual) D-Dimer ABG pH ABG pO2 ABG HCO3 ABG O2 Saturation ABG Base Excess ABG Hemoglobin Oxyhemoglobin Sodium Potassium Chloride Carbon Dioxide BUN Creatinine Glucose POC Glucose 200 H 263 H 218 H Lactic Acid Calcium Magnesium AST ALT Lactate Dehydrogenase Total Creatine Kinase C-Reactive Protein Total Protein Albumin Free T4 Urine WBC (Auto) Urine Total Protein Digoxin Salicylates Acetaminophen 12/21/19 12/21/19 12/21/19 04:38 05:26 12:35 WBC RBC Hgb Hct MCV MCH MCHC RDW Plt Count Lymph % (Auto) [place] % (Auto) Eos % (Auto) Baso % (Auto) Lymph # [place] # Eos # Baso # Seg Neutrophils % Monocytes % (Manual) Monocytes # (Manual) D-Dimer ABG pH ABG pO2 ABG HCO3 ABG O2 Saturation ABG Base Excess ABG Hemoglobin Oxyhemoglobin Sodium 149 H Potassium 3.5 L Chloride 110.5 H Carbon Dioxide BUN Creatinine Glucose 158 H POC Glucose 193 H 193 H Lactic Acid Calcium Magnesium AST ALT Lactate Dehydrogenase Total Creatine Kinase C-Reactive Protein Total Protein Albumin Free T4 Urine WBC (Auto) Urine Total Protein Digoxin Salicylates Acetaminophen 12/21/19 12/22/19 12/22/19 18:29 00:03 05:15 WBC RBC Hgb 10.3 L Hct 34.7 L MCV MCH 25 L MCHC 30 L RDW 19.4 H Plt Count Lymph % (Auto) 9.0 L [place] % (Auto) 12.3 H Eos % (Auto) 5.0 H Baso % (Auto) Lymph # 0.5 L [place] # Eos # Baso # Seg Neutrophils % 73.2 H Monocytes % (Manual) Monocytes # (Manual) D-Dimer ABG pH ABG pO2 ABG HCO3 ABG O2 Saturation ABG Base Excess ABG Hemoglobin Oxyhemoglobin Sodium Potassium Chloride Carbon Dioxide BUN Creatinine Glucose POC Glucose 186 H 143 H Lactic Acid Calcium Magnesium AST ALT Lactate Dehydrogenase Total Creatine Kinase C-Reactive Protein Total Protein Albumin Free T4 Urine WBC (Auto) Urine Total Protein Digoxin Salicylates Acetaminophen 12/22/19 12/22/19 12/22/19 05:15 06:02 12:13 WBC RBC Hgb Hct MCV MCH MCHC RDW Plt Count Lymph % (Auto) [place] % (Auto) Eos % (Auto) Baso % (Auto) Lymph # [place] # Eos # Baso # Seg Neutrophils % Monocytes % (Manual) Monocytes # (Manual) D-Dimer ABG pH ABG pO2 ABG HCO3 ABG O2 Saturation ABG Base Excess ABG Hemoglobin Oxyhemoglobin Sodium 152 H Potassium Chloride 113.5 H Carbon Dioxide BUN Creatinine Glucose 126 H POC Glucose 144 H 159 H Lactic Acid Calcium Magnesium AST ALT Lactate Dehydrogenase Total Creatine Kinase C-Reactive Protein Total Protein Albumin Free T4 Urine WBC (Auto) Urine Total Protein Digoxin Salicylates Acetaminophen 12/22/19 12/22/19 12/23/19 18:03 23:50 05:27 WBC RBC Hgb Hct MCV MCH MCHC RDW Plt Count Lymph % (Auto) [place] % (Auto) Eos % (Auto) Baso % (Auto) Lymph # [place] # Eos # Baso # Seg Neutrophils % Monocytes % (Manual) Monocytes # (Manual) D-Dimer ABG pH ABG pO2 ABG HCO3 ABG O2 Saturation ABG Base Excess ABG Hemoglobin Oxyhemoglobin Sodium Potassium Chloride Carbon Dioxide BUN Creatinine Glucose POC Glucose 140 H 227 H 185 H Lactic Acid Calcium Magnesium AST ALT Lactate Dehydrogenase Total Creatine Kinase C-Reactive Protein Total Protein Albumin Free T4 Urine WBC (Auto) Urine Total Protein Digoxin Salicylates Acetaminophen 12/23/19 12/23/19 12/23/19 12:13 16:05 16:40 WBC RBC Hgb Hct MCV MCH MCHC RDW Plt Count Lymph % (Auto) [place] % (Auto) Eos % (Auto) Baso % (Auto) Lymph # [place] # Eos # Baso # Seg Neutrophils % Monocytes % (Manual) Monocytes # (Manual) D-Dimer ABG pH 7.259 L ABG pO2 76.2 L ABG HCO3 30.6 H ABG O2 Saturation 94.6 L ABG Base Excess ABG Hemoglobin 11.5 L Oxyhemoglobin 92.2 L Sodium 163 H* D Potassium 3.4 L Chloride 120.1 H Carbon Dioxide BUN Creatinine Glucose 162 H POC Glucose 132 H Lactic Acid Calcium Magnesium AST ALT Lactate Dehydrogenase Total Creatine Kinase C-Reactive Protein Total Protein Albumin Free T4 Urine WBC (Auto) Urine Total Protein Digoxin Salicylates Acetaminophen 12/23/19 12/24/19 12/24/19 17:53 00:48 04:20 WBC RBC Hgb Hct MCV MCH MCHC RDW Plt Count Lymph % (Auto) [place] % (Auto) Eos % (Auto) Baso % (Auto) Lymph # [place] # Eos # Baso # Seg Neutrophils % Monocytes % (Manual) Monocytes # (Manual) D-Dimer ABG pH ABG pO2 ABG HCO3 30.4 H ABG O2 Saturation ABG Base Excess 3.9 H ABG Hemoglobin 10.3 L Oxyhemoglobin 94.4 L Sodium Potassium Chloride Carbon Dioxide BUN Creatinine Glucose POC Glucose 180 H 174 H Lactic Acid Calcium Magnesium AST ALT Lactate Dehydrogenase Total Creatine Kinase C-Reactive Protein Total Protein Albumin Free T4 Urine WBC (Auto) Urine Total Protein Digoxin Salicylates Acetaminophen 12/24/19 12/24/19 12/24/19 04:53 04:53 11:50 WBC RBC Hgb 9.7 L Hct 33.2 L MCV MCH 25 L MCHC 29 L RDW 20.1 H Plt Count Lymph % (Auto) [place] % (Auto) Eos % (Auto) Baso % (Auto) Lymph # [place] # Eos # Baso # Seg Neutrophils % Monocytes % (Manual) 15.0 H Monocytes # (Manual) 0.9 H D-Dimer ABG pH ABG pO2 ABG HCO3 ABG O2 Saturation ABG Base Excess ABG Hemoglobin Oxyhemoglobin Sodium 163 H* Potassium 3.2 L Chloride 122.6 H Carbon Dioxide BUN Creatinine Glucose 168 H POC Glucose 190 H Lactic Acid Calcium Magnesium AST ALT Lactate Dehydrogenase Total Creatine Kinase C-Reactive Protein Total Protein Albumin Free T4 Urine WBC (Auto) Urine Total Protein Digoxin Salicylates Acetaminophen 12/24/19 12/24/19 12/24/19 15:00 16:28 21:15 WBC RBC Hgb Hct MCV MCH MCHC RDW Plt Count Lymph % (Auto) [place] % (Auto) Eos % (Auto) Baso % (Auto) Lymph # [place] # Eos # Baso # Seg Neutrophils % Monocytes % (Manual) Monocytes # (Manual) D-Dimer ABG pH ABG pO2 ABG HCO3 ABG O2 Saturation ABG Base Excess ABG Hemoglobin Oxyhemoglobin Sodium 165 H* D 163 H* Potassium Chloride Carbon Dioxide BUN Creatinine Glucose POC Glucose 160 H Lactic Acid Calcium Magnesium AST ALT Lactate Dehydrogenase Total Creatine Kinase C-Reactive Protein Total Protein Albumin Free T4 Urine WBC (Auto) Urine Total Protein Digoxin Salicylates Acetaminophen 12/25/19 12/25/19 12/25/19 00:31 05:38 05:46 WBC RBC Hgb 9.7 L Hct 32.5 L MCV MCH 25 L MCHC 30 L RDW 19.4 H Plt Count Lymph % (Auto) [place] % (Auto) Eos % (Auto) Baso % (Auto) Lymph # [place] # Eos # Baso # Seg Neutrophils % Monocytes % (Manual) Monocytes # (Manual) D-Dimer ABG pH ABG pO2 ABG HCO3 ABG O2 Saturation ABG Base Excess ABG Hemoglobin Oxyhemoglobin Sodium Potassium Chloride Carbon Dioxide BUN Creatinine Glucose POC Glucose 182 H 194 H Lactic Acid Calcium Magnesium AST ALT Lactate Dehydrogenase Total Creatine Kinase C-Reactive Protein Total Protein Albumin Free T4 Urine WBC (Auto) Urine Total Protein Digoxin Salicylates Acetaminophen 12/25/19 12/25/19 12/25/19 05:46 11:35 11:38 WBC RBC Hgb Hct MCV MCH MCHC RDW Plt Count Lymph % (Auto) [place] % (Auto) Eos % (Auto) Baso % (Auto) Lymph # [place] # Eos # Baso # Seg Neutrophils % Monocytes % (Manual) Monocytes # (Manual) D-Dimer ABG pH 7.330 L ABG pO2 65.7 L ABG HCO3 32.6 H ABG O2 Saturation 92.5 L ABG Base Excess 5.3 H ABG Hemoglobin 10.4 L Oxyhemoglobin 90.0 L Sodium 166 H* Potassium 2.9 L* Chloride 124.5 H Carbon Dioxide BUN Creatinine Glucose 190 H POC Glucose 192 H Lactic Acid Calcium Magnesium AST ALT Lactate Dehydrogenase Total Creatine Kinase C-Reactive Protein Total Protein Albumin Free T4 Urine WBC (Auto) Urine Total Protein Digoxin Salicylates Acetaminophen 12/25/19 12/25/19 12/25/19 13:01 16:45 17:20 WBC RBC Hgb Hct MCV MCH MCHC RDW Plt Count Lymph % (Auto) [place] % (Auto) Eos % (Auto) Baso % (Auto) Lymph # [place] # Eos # Baso # Seg Neutrophils % Monocytes % (Manual) Monocytes # (Manual) D-Dimer ABG pH 7.296 L ABG pO2 101.5 H ABG HCO3 33.2 H ABG O2 Saturation ABG Base Excess 5.3 H ABG Hemoglobin 9.6 L Oxyhemoglobin 94.6 L Sodium 174 H* Potassium Chloride Carbon Dioxide BUN Creatinine Glucose POC Glucose Lactic Acid Calcium Magnesium AST ALT Lactate Dehydrogenase Total Creatine Kinase C-Reactive Protein Total Protein Albumin Free T4 Urine WBC (Auto) Urine Total Protein < 4 L Digoxin Salicylates Acetaminophen 12/25/19 12/25/19 12/26/19 17:48 18:50 00:43 WBC RBC Hgb Hct MCV MCH MCHC RDW Plt Count Lymph % (Auto) [place] % (Auto) Eos % (Auto) Baso % (Auto) Lymph # [place] # Eos # Baso # Seg Neutrophils % Monocytes % (Manual) Monocytes # (Manual) D-Dimer ABG pH ABG pO2 ABG HCO3 ABG O2 Saturation ABG Base Excess ABG Hemoglobin Oxyhemoglobin Sodium 166 H* 164 H* Potassium Chloride 127.3 H Carbon Dioxide BUN Creatinine Glucose 220 H POC Glucose 252 H Lactic Acid Calcium Magnesium AST ALT Lactate Dehydrogenase Total Creatine Kinase C-Reactive Protein Total Protein Albumin Free T4 Urine WBC (Auto) Urine Total Protein Digoxin Salicylates Acetaminophen 12/26/19 12/26/19 12/26/19 05:31 08:07 08:07 WBC 4.3 L RBC Hgb 9.6 L Hct 32.1 L MCV MCH 26 L MCHC 30 L RDW 20.5 H Plt Count Lymph % (Auto) [place] % (Auto) Eos % (Auto) Baso % (Auto) Lymph # [place] # Eos # Baso # Seg Neutrophils % Monocytes % (Manual) Monocytes # (Manual) D-Dimer ABG pH ABG pO2 ABG HCO3 ABG O2 Saturation ABG Base Excess ABG Hemoglobin Oxyhemoglobin Sodium 162 H* Potassium Chloride 122.1 H Carbon Dioxide BUN Creatinine Glucose 247 H POC Glucose 187 H Lactic Acid Calcium Magnesium AST ALT Lactate Dehydrogenase Total Creatine Kinase C-Reactive Protein Total Protein Albumin Free T4 Urine WBC (Auto) Urine Total Protein Digoxin Salicylates Acetaminophen 12/26/19 12/26/19 12/26/19 08:07 12:20 16:25 WBC RBC Hgb Hct MCV MCH MCHC RDW Plt Count Lymph % (Auto) [place] % (Auto) Eos % (Auto) Baso % (Auto) Lymph # [place] # Eos # Baso # Seg Neutrophils % Monocytes % (Manual) Monocytes # (Manual) D-Dimer ABG pH 7.290 L ABG pO2 73.2 L ABG HCO3 33.2 H ABG O2 Saturation 94.9 L ABG Base Excess 5.2 H ABG Hemoglobin 10.0 L Oxyhemoglobin 92.5 L Sodium 159 H Potassium Chloride Carbon Dioxide BUN Creatinine Glucose POC Glucose 234 H Lactic Acid Calcium Magnesium AST ALT Lactate Dehydrogenase Total Creatine Kinase C-Reactive Protein Total Protein Albumin Free T4 Urine WBC (Auto) Urine Total Protein Digoxin Salicylates Acetaminophen 12/26/19 12/26/19 12/26/19 17:33 22:35 23:30 WBC RBC Hgb Hct MCV MCH MCHC RDW Plt Count Lymph % (Auto) [place] % (Auto) Eos % (Auto) Baso % (Auto) Lymph # [place] # Eos # Baso # Seg Neutrophils % Monocytes % (Manual) Monocytes # (Manual) D-Dimer ABG pH ABG pO2 ABG HCO3 ABG O2 Saturation ABG Base Excess ABG Hemoglobin Oxyhemoglobin Sodium Potassium Chloride Carbon Dioxide BUN Creatinine Glucose POC Glucose 244 H 208 H 287 H Lactic Acid Calcium Magnesium AST ALT Lactate Dehydrogenase Total Creatine Kinase C-Reactive Protein Total Protein Albumin Free T4 Urine WBC (Auto) Urine Total Protein Digoxin Salicylates Acetaminophen 12/27/19 12/27/19 12/27/19 03:48 03:48 03:48 WBC RBC Hgb 10.1 L Hct 35.4 L MCV MCH 25 L MCHC 29 L RDW 20.1 H Plt Count Lymph % (Auto) [place] % (Auto) Eos % (Auto) Baso % (Auto) Lymph # [place] # Eos # Baso # Seg Neutrophils % Monocytes % (Manual) Monocytes # (Manual) D-Dimer ABG pH ABG pO2 ABG HCO3 ABG O2 Saturation ABG Base Excess ABG Hemoglobin Oxyhemoglobin Sodium 160 H Potassium Chloride 118.8 H Carbon Dioxide 33 H BUN Creatinine Glucose 217 H POC Glucose Lactic Acid Calcium Magnesium 2.70 H AST ALT Lactate Dehydrogenase Total Creatine Kinase C-Reactive Protein Total Protein Albumin Free T4 Urine WBC (Auto) Urine Total Protein Digoxin Salicylates Acetaminophen 12/27/19 12/27/19 12/27/19 05:50 11:58 16:05 WBC RBC Hgb Hct MCV MCH MCHC RDW Plt Count Lymph % (Auto) [place] % (Auto) Eos % (Auto) Baso % (Auto) Lymph # [place] # Eos # Baso # Seg Neutrophils % Monocytes % (Manual) Monocytes # (Manual) D-Dimer ABG pH 7.180 L* ABG pO2 73.6 L ABG HCO3 34.8 H ABG O2 Saturation 92.7 L ABG Base Excess 3.8 H ABG Hemoglobin 12.0 L Oxyhemoglobin 90.2 L Sodium Potassium Chloride Carbon Dioxide BUN Creatinine Glucose POC Glucose 224 H 218 H Lactic Acid Calcium Magnesium AST ALT Lactate Dehydrogenase Total Creatine Kinase C-Reactive Protein Total Protein Albumin Free T4 Urine WBC (Auto) Urine Total Protein Digoxin Salicylates Acetaminophen 12/27/19 12/27/19 12/27/19 18:05 19:50 21:53 WBC RBC Hgb Hct MCV MCH MCHC RDW Plt Count Lymph % (Auto) [place] % (Auto) Eos % (Auto) Baso % (Auto) Lymph # [place] # Eos # Baso # Seg Neutrophils % Monocytes % (Manual) Monocytes # (Manual) D-Dimer ABG pH 7.328 L ABG pO2 49.9 L ABG HCO3 33.3 H ABG O2 Saturation 87.1 L ABG Base Excess 5.7 H ABG Hemoglobin 11.2 L Oxyhemoglobin 84.8 L Sodium Potassium Chloride Carbon Dioxide BUN Creatinine Glucose POC Glucose 214 H 178 H Lactic Acid Calcium Magnesium AST ALT Lactate Dehydrogenase Total Creatine Kinase C-Reactive Protein Total Protein Albumin Free T4 Urine WBC (Auto) Urine Total Protein Digoxin Salicylates Acetaminophen 12/28/19 12/28/19 12/28/19 00:42 04:37 04:37 WBC RBC Hgb 9.8 L Hct 33.5 L MCV MCH 25 L MCHC 29 L RDW 21.1 H Plt Count Lymph % (Auto) [place] % (Auto) Eos % (Auto) Baso % (Auto) Lymph # [place] # Eos # Baso # Seg Neutrophils % Monocytes % (Manual) Monocytes # (Manual) D-Dimer ABG pH ABG pO2 ABG HCO3 ABG O2 Saturation ABG Base Excess ABG Hemoglobin Oxyhemoglobin Sodium 157 H Potassium 3.4 L Chloride 117.5 H Carbon Dioxide BUN Creatinine Glucose 193 H POC Glucose 157 H Lactic Acid Calcium Magnesium AST ALT Lactate Dehydrogenase Total Creatine Kinase C-Reactive Protein Total Protein Albumin Free T4 Urine WBC (Auto) Urine Total Protein Digoxin Salicylates Acetaminophen 12/28/19 12/28/19 12/28/19 04:52 05:19 12:05 WBC RBC Hgb Hct MCV MCH MCHC RDW Plt Count Lymph % (Auto) [place] % (Auto) Eos % (Auto) Baso % (Auto) Lymph # [place] # Eos # Baso # Seg Neutrophils % Monocytes % (Manual) Monocytes # (Manual) D-Dimer ABG pH ABG pO2 51.7 L ABG HCO3 28.7 H ABG O2 Saturation 89.9 L ABG Base Excess 4.1 H ABG Hemoglobin 9.7 L Oxyhemoglobin 87.7 L Sodium Potassium Chloride Carbon Dioxide BUN Creatinine Glucose POC Glucose 202 H 248 H Lactic Acid Calcium Magnesium AST ALT Lactate Dehydrogenase Total Creatine Kinase C-Reactive Protein Total Protein Albumin Free T4 Urine WBC (Auto) Urine Total Protein Digoxin Salicylates Acetaminophen 12/28/19 12/28/19 12/28/19 18:11 21:15 23:22 WBC RBC Hgb Hct MCV MCH MCHC RDW Plt Count Lymph % (Auto) [place] % (Auto) Eos % (Auto) Baso % (Auto) Lymph # [place] # Eos # Baso # Seg Neutrophils % Monocytes % (Manual) Monocytes # (Manual) D-Dimer ABG pH ABG pO2 ABG HCO3 ABG O2 Saturation ABG Base Excess ABG Hemoglobin Oxyhemoglobin Sodium Potassium Chloride Carbon Dioxide BUN Creatinine Glucose POC Glucose 226 H 217 H 227 H Lactic Acid Calcium Magnesium AST ALT Lactate Dehydrogenase Total Creatine Kinase C-Reactive Protein Total Protein Albumin Free T4 Urine WBC (Auto) Urine Total Protein Digoxin Salicylates Acetaminophen 12/29/19 12/29/19 12/29/19 04:09 04:59 04:59 WBC 11.1 H RBC Hgb 9.3 L Hct 31.1 L MCV 81 L MCH 24 L MCHC 30 L RDW 19.9 H Plt Count Lymph % (Auto) [place] % (Auto) Eos % (Auto) Baso % (Auto) Lymph # [place] # Eos # Baso # Seg Neutrophils % Monocytes % (Manual) Monocytes # (Manual) D-Dimer ABG pH 7.473 H ABG pO2 126.1 H ABG HCO3 29.2 H ABG O2 Saturation ABG Base Excess 5.1 H ABG Hemoglobin 8.4 L Oxyhemoglobin Sodium 157 H Potassium 3.2 L Chloride 118.2 H Carbon Dioxide BUN Creatinine 1.7 H Glucose 229 H POC Glucose Lactic Acid Calcium Magnesium AST ALT Lactate Dehydrogenase Total Creatine Kinase C-Reactive Protein Total Protein Albumin Free T4 Urine WBC (Auto) Urine Total Protein Digoxin Salicylates Acetaminophen 12/29/19 12/29/19 12/29/19 05:15 12:13 17:59 WBC RBC Hgb Hct MCV MCH MCHC RDW Plt Count Lymph % (Auto) [place] % (Auto) Eos % (Auto) Baso % (Auto) Lymph # [place] # Eos # Baso # Seg Neutrophils % Monocytes % (Manual) Monocytes # (Manual) D-Dimer ABG pH ABG pO2 ABG HCO3 ABG O2 Saturation ABG Base Excess ABG Hemoglobin Oxyhemoglobin Sodium Potassium Chloride Carbon Dioxide BUN Creatinine Glucose POC Glucose 221 H 392 H 365 H Lactic Acid Calcium Magnesium AST ALT Lactate Dehydrogenase Total Creatine Kinase C-Reactive Protein Total Protein Albumin Free T4 Urine WBC (Auto) Urine Total Protein Digoxin Salicylates Acetaminophen 12/29/19 12/29/19 12/30/19 20:25 23:38 04:45 WBC RBC Hgb Hct MCV MCH MCHC RDW Plt Count Lymph % (Auto) [place] % (Auto) Eos % (Auto) Baso % (Auto) Lymph # [place] # Eos # Baso # Seg Neutrophils % Monocytes % (Manual) Monocytes # (Manual) D-Dimer ABG pH 7.261 L 7.343 L ABG pO2 60.3 L 54.3 L ABG HCO3 32.1 H 30.9 H ABG O2 Saturation 87.6 L 88.3 L ABG Base Excess 3.7 H 4.0 H ABG Hemoglobin 9.7 L 11.6 L Oxyhemoglobin 85.2 L 86.0 L Sodium Potassium Chloride Carbon Dioxide BUN Creatinine Glucose POC Glucose 402 H Lactic Acid Calcium Magnesium AST ALT Lactate Dehydrogenase Total Creatine Kinase C-Reactive Protein Total Protein Albumin Free T4 Urine WBC (Auto) Urine Total Protein Digoxin Salicylates Acetaminophen 12/30/19 12/30/19 12/30/19 05:06 05:06 05:06 WBC 11.7 H RBC Hgb 9.4 L Hct 32.4 L MCV 83 L MCH 24 L MCHC 29 L RDW 20.2 H Plt Count Lymph % (Auto) [place] % (Auto) Eos % (Auto) Baso % (Auto) Lymph # [place] # Eos # Baso # Seg Neutrophils % Monocytes % (Manual) Monocytes # (Manual) D-Dimer ABG pH ABG pO2 ABG HCO3 ABG O2 Saturation ABG Base Excess ABG Hemoglobin Oxyhemoglobin Sodium 159 H Potassium 3.2 L Chloride 120.1 H Carbon Dioxide 31 H BUN Creatinine 1.9 H Glucose 404 H POC Glucose Lactic Acid Calcium Magnesium 2.60 H AST ALT Lactate Dehydrogenase Total Creatine Kinase C-Reactive Protein Total Protein Albumin Free T4 Urine WBC (Auto) Urine Total Protein Digoxin Salicylates Acetaminophen 12/30/19 12/30/19 12/30/19 06:26 12:29 13:44 WBC RBC Hgb Hct MCV MCH MCHC RDW Plt Count Lymph % (Auto) [place] % (Auto) Eos % (Auto) Baso % (Auto) Lymph # [place] # Eos # Baso # Seg Neutrophils % Monocytes % (Manual) Monocytes # (Manual) D-Dimer ABG pH ABG pO2 ABG HCO3 ABG O2 Saturation ABG Base Excess ABG Hemoglobin Oxyhemoglobin Sodium Potassium Chloride Carbon Dioxide BUN Creatinine Glucose POC Glucose 399 H 469 H > 500 H Lactic Acid Calcium Magnesium AST ALT Lactate Dehydrogenase Total Creatine Kinase C-Reactive Protein Total Protein Albumin Free T4 Urine WBC (Auto) Urine Total Protein Digoxin Salicylates Acetaminophen 12/30/19 12/30/19 12/30/19 13:51 16:32 18:05 WBC RBC Hgb Hct MCV MCH MCHC RDW Plt Count Lymph % (Auto) [place] % (Auto) Eos % (Auto) Baso % (Auto) Lymph # [place] # Eos # Baso # Seg Neutrophils % Monocytes % (Manual) Monocytes # (Manual) D-Dimer ABG pH ABG pO2 ABG HCO3 ABG O2 Saturation ABG Base Excess ABG Hemoglobin Oxyhemoglobin Sodium Potassium Chloride Carbon Dioxide BUN Creatinine Glucose POC Glucose > 500 H 445 H 429 H Lactic Acid Calcium Magnesium AST ALT Lactate Dehydrogenase Total Creatine Kinase C-Reactive Protein Total Protein Albumin Free T4 Urine WBC (Auto) Urine Total Protein Digoxin Salicylates Acetaminophen 12/30/19 12/30/19 12/31/19 21:42 Unknown 00:00 WBC RBC Hgb Hct MCV MCH MCHC RDW Plt Count Lymph % (Auto) [place] % (Auto) Eos % (Auto) Baso % (Auto) Lymph # [place] # Eos # Baso # Seg Neutrophils % Monocytes % (Manual) Monocytes # (Manual) D-Dimer ABG pH ABG pO2 ABG HCO3 ABG O2 Saturation ABG Base Excess ABG Hemoglobin Oxyhemoglobin Sodium Potassium Chloride Carbon Dioxide BUN Creatinine Glucose 498 H POC Glucose 371 H 452 H Lactic Acid Calcium Magnesium AST ALT Lactate Dehydrogenase Total Creatine Kinase C-Reactive Protein Total Protein Albumin Free T4 Urine WBC (Auto) Urine Total Protein Digoxin Salicylates Acetaminophen 12/31/19 12/31/19 12/31/19 04:31 05:42 08:01 WBC RBC Hgb Hct MCV MCH MCHC RDW Plt Count Lymph % (Auto) [place] % (Auto) Eos % (Auto) Baso % (Auto) Lymph # [place] # Eos # Baso # Seg Neutrophils % Monocytes % (Manual) Monocytes # (Manual) D-Dimer ABG pH 7.251 L ABG pO2 62.4 L ABG HCO3 31.1 H ABG O2 Saturation 88.7 L ABG Base Excess ABG Hemoglobin 8.7 L Oxyhemoglobin 86.4 L Sodium Potassium Chloride Carbon Dioxide BUN Creatinine Glucose POC Glucose 443 H 443 H Lactic Acid Calcium Magnesium AST ALT Lactate Dehydrogenase Total Creatine Kinase C-Reactive Protein Total Protein Albumin Free T4 Urine WBC (Auto) Urine Total Protein Digoxin Salicylates Acetaminophen 12/31/19 12/31/19 12/31/19 09:08 10:00 11:50 WBC RBC Hgb Hct MCV MCH MCHC RDW Plt Count Lymph % (Auto) [place] % (Auto) Eos % (Auto) Baso % (Auto) Lymph # [place] # Eos # Baso # Seg Neutrophils % Monocytes % (Manual) Monocytes # (Manual) D-Dimer ABG pH 7.325 L ABG pO2 97.2 H ABG HCO3 30.1 H ABG O2 Saturation ABG Base Excess 3.4 H ABG Hemoglobin 8.3 L Oxyhemoglobin 94.7 L Sodium 151 H D Potassium 3.2 L Chloride 113.0 H Carbon Dioxide BUN 23 H Creatinine 1.8 H Glucose 373 H POC Glucose 465 H Lactic Acid Calcium Magnesium AST ALT Lactate Dehydrogenase Total Creatine Kinase C-Reactive Protein Total Protein Albumin Free T4 Urine WBC (Auto) Urine Total Protein Digoxin Salicylates Acetaminophen 12/31/19 12/31/19 12/31/19 12:25 13:33 18:30 WBC RBC Hgb Hct MCV MCH MCHC RDW Plt Count Lymph % (Auto) [place] % (Auto) Eos % (Auto) Baso % (Auto) Lymph # [place] # Eos # Baso # Seg Neutrophils % Monocytes % (Manual) Monocytes # (Manual) D-Dimer ABG pH ABG pO2 ABG HCO3 ABG O2 Saturation ABG Base Excess ABG Hemoglobin Oxyhemoglobin Sodium Potassium Chloride Carbon Dioxide BUN Creatinine Glucose POC Glucose 379 H 311 H 349 H Lactic Acid Calcium Magnesium AST ALT Lactate Dehydrogenase Total Creatine Kinase C-Reactive Protein Total Protein Albumin Free T4 Urine WBC (Auto) Urine Total Protein Digoxin Salicylates Acetaminophen 12/31/19 12/31/19 01/01/20 22:29 23:30 02:58 WBC RBC Hgb Hct MCV MCH MCHC RDW Plt Count Lymph % (Auto) [place] % (Auto) Eos % (Auto) Baso % (Auto) Lymph # [place] # Eos # Baso # Seg Neutrophils % Monocytes % (Manual) Monocytes # (Manual) D-Dimer ABG pH ABG pO2 ABG HCO3 ABG O2 Saturation ABG Base Excess ABG Hemoglobin Oxyhemoglobin Sodium Potassium Chloride Carbon Dioxide BUN Creatinine Glucose POC Glucose 256 H 266 H 248 H Lactic Acid Calcium Magnesium AST ALT Lactate Dehydrogenase Total Creatine Kinase C-Reactive Protein Total Protein Albumin Free T4 Urine WBC (Auto) Urine Total Protein Digoxin Salicylates Acetaminophen 01/01/20 01/01/20 01/01/20 04:19 06:56 10:52 WBC RBC Hgb Hct MCV MCH MCHC RDW Plt Count Lymph % (Auto) [place] % (Auto) Eos % (Auto) Baso % (Auto) Lymph # [place] # Eos # Baso # Seg Neutrophils % Monocytes % (Manual) Monocytes # (Manual) D-Dimer ABG pH ABG pO2 90.7 H ABG HCO3 29.1 H ABG O2 Saturation ABG Base Excess 3.8 H ABG Hemoglobin 8.1 L Oxyhemoglobin 94.5 L Sodium Potassium Chloride Carbon Dioxide BUN Creatinine Glucose POC Glucose 303 H 244 H Lactic Acid Calcium Magnesium AST ALT Lactate Dehydrogenase Total Creatine Kinase C-Reactive Protein Total Protein Albumin Free T4 Urine WBC (Auto) Urine Total Protein Digoxin Salicylates Acetaminophen 01/01/20 01/01/20 01/01/20 13:39 14:49 18:42 WBC RBC Hgb Hct MCV MCH MCHC RDW Plt Count Lymph % (Auto) [place] % (Auto) Eos % (Auto) Baso % (Auto) Lymph # [place] # Eos # Baso # Seg Neutrophils % Monocytes % (Manual) Monocytes # (Manual) D-Dimer ABG pH ABG pO2 ABG HCO3 ABG O2 Saturation ABG Base Excess ABG Hemoglobin Oxyhemoglobin Sodium 147 H Potassium Chloride 107.1 H Carbon Dioxide BUN 28 H Creatinine Glucose 207 H POC Glucose 263 H 188 H Lactic Acid Calcium Magnesium AST ALT Lactate Dehydrogenase Total Creatine Kinase C-Reactive Protein Total Protein Albumin Free T4 Urine WBC (Auto) Urine Total Protein Digoxin Salicylates Acetaminophen 01/02/20 01/02/20 01/02/20 02:22 03:58 05:00 WBC RBC 3.31 L Hgb 8.0 L Hct 26.9 L MCV 81 L MCH 24 L MCHC 30 L RDW 19.4 H Plt Count Lymph % (Auto) [place] % (Auto) 9.4 H Eos % (Auto) 11.2 H Baso % (Auto) Lymph # [place] # Eos # 0.8 H Baso # Seg Neutrophils % Monocytes % (Manual) Monocytes # (Manual) D-Dimer ABG pH ABG pO2 63.0 L ABG HCO3 31.6 H ABG O2 Saturation 91.8 L ABG Base Excess 5.5 H ABG Hemoglobin 8.6 L Oxyhemoglobin 89.6 L Sodium Potassium Chloride Carbon Dioxide BUN Creatinine Glucose POC Glucose 196 H Lactic Acid Calcium Magnesium AST ALT Lactate Dehydrogenase Total Creatine Kinase C-Reactive Protein Total Protein Albumin Free T4 Urine WBC (Auto) Urine Total Protein Digoxin Salicylates Acetaminophen 01/02/20 01/02/20 01/02/20 05:40 10:26 13:57 WBC RBC Hgb Hct MCV MCH MCHC RDW Plt Count Lymph % (Auto) [place] % (Auto) Eos % (Auto) Baso % (Auto) Lymph # [place] # Eos # Baso # Seg Neutrophils % Monocytes % (Manual) Monocytes # (Manual) D-Dimer ABG pH ABG pO2 ABG HCO3 ABG O2 Saturation ABG Base Excess ABG Hemoglobin Oxyhemoglobin Sodium Potassium Chloride Carbon Dioxide BUN Creatinine Glucose POC Glucose 189 H 157 H 178 H Lactic Acid Calcium Magnesium AST ALT Lactate Dehydrogenase Total Creatine Kinase C-Reactive Protein Total Protein Albumin Free T4 Urine WBC (Auto) Urine Total Protein Digoxin Salicylates Acetaminophen 01/02/20 01/03/20 01/03/20 21:27 03:12 05:26 WBC RBC Hgb Hct MCV MCH MCHC RDW Plt Count Lymph % (Auto) [place] % (Auto) Eos % (Auto) Baso % (Auto) Lymph # [place] # Eos # Baso # Seg Neutrophils % Monocytes % (Manual) Monocytes # (Manual) D-Dimer ABG pH 7.473 H ABG pO2 109.6 H ABG HCO3 30.4 H ABG O2 Saturation ABG Base Excess 6.2 H ABG Hemoglobin 9.9 L Oxyhemoglobin Sodium Potassium Chloride Carbon Dioxide BUN Creatinine Glucose POC Glucose 131 H 133 H Lactic Acid Calcium Magnesium AST ALT Lactate Dehydrogenase Total Creatine Kinase C-Reactive Protein Total Protein Albumin Free T4 Urine WBC (Auto) Urine Total Protein Digoxin Salicylates Acetaminophen 01/03/20 01/03/20 01/03/20 05:40 05:40 15:01 WBC RBC 3.45 L Hgb 8.3 L Hct 27.3 L MCV 79 L MCH 24 L MCHC 30 L RDW 19.3 H Plt Count Lymph % (Auto) [place] % (Auto) Eos % (Auto) Baso % (Auto) Lymph # [place] # Eos # Baso # Seg Neutrophils % Monocytes % (Manual) Monocytes # (Manual) D-Dimer ABG pH ABG pO2 ABG HCO3 ABG O2 Saturation ABG Base Excess ABG Hemoglobin Oxyhemoglobin Sodium 151 H Potassium Chloride 111.8 H Carbon Dioxide 31 H BUN 37 H Creatinine 1.8 H Glucose 187 H POC Glucose 164 H Lactic Acid Calcium Magnesium AST ALT Lactate Dehydrogenase Total Creatine Kinase C-Reactive Protein Total Protein Albumin Free T4 Urine WBC (Auto) Urine Total Protein Digoxin Salicylates Acetaminophen 01/03/20 01/03/20 01/04/20 18:15 22:45 02:11 WBC RBC Hgb Hct MCV MCH MCHC RDW Plt Count Lymph % (Auto) [place] % (Auto) Eos % (Auto) Baso % (Auto) Lymph # [place] # Eos # Baso # Seg Neutrophils % Monocytes % (Manual) Monocytes # (Manual) D-Dimer ABG pH ABG pO2 ABG HCO3 ABG O2 Saturation ABG Base Excess ABG Hemoglobin Oxyhemoglobin Sodium Potassium Chloride Carbon Dioxide BUN Creatinine Glucose POC Glucose 184 H 176 H 206 H Lactic Acid Calcium Magnesium AST ALT Lactate Dehydrogenase Total Creatine Kinase C-Reactive Protein Total Protein Albumin Free T4 Urine WBC (Auto) Urine Total Protein Digoxin Salicylates Acetaminophen 01/04/20 01/04/20 01/04/20 03:16 05:15 10:53 WBC RBC Hgb Hct MCV MCH MCHC RDW Plt Count Lymph % (Auto) [place] % (Auto) Eos % (Auto) Baso % (Auto) Lymph # [place] # Eos # Baso # Seg Neutrophils % Monocytes % (Manual) Monocytes # (Manual) D-Dimer ABG pH 7.282 L ABG pO2 73.2 L ABG HCO3 ABG O2 Saturation 94.5 L ABG Base Excess -6.4 L ABG Hemoglobin 10.9 L Oxyhemoglobin 92.1 L Sodium Potassium Chloride Carbon Dioxide BUN Creatinine Glucose POC Glucose 139 H 224 H Lactic Acid Calcium Magnesium AST ALT Lactate Dehydrogenase Total Creatine Kinase C-Reactive Protein Total Protein Albumin Free T4 Urine WBC (Auto) Urine Total Protein Digoxin Salicylates Acetaminophen 01/04/20 01/04/20 01/04/20 15:47 18:05 22:07 WBC RBC Hgb Hct MCV MCH MCHC RDW Plt Count Lymph % (Auto) [place] % (Auto) Eos % (Auto) Baso % (Auto) Lymph # [place] # Eos # Baso # Seg Neutrophils % Monocytes % (Manual) Monocytes # (Manual) D-Dimer ABG pH ABG pO2 ABG HCO3 ABG O2 Saturation ABG Base Excess ABG Hemoglobin Oxyhemoglobin Sodium Potassium Chloride Carbon Dioxide BUN Creatinine Glucose POC Glucose 135 H 117 H 108 H Lactic Acid Calcium Magnesium AST ALT Lactate Dehydrogenase Total Creatine Kinase C-Reactive Protein Total Protein Albumin Free T4 Urine WBC (Auto) Urine Total Protein Digoxin Salicylates Acetaminophen 01/04/20 01/04/20 01/05/20 Unknown Unknown 02:04 WBC RBC 3.46 L Hgb 8.2 L Hct 27.8 L MCV 80 L MCH 24 L MCHC 30 L RDW 19.7 H Plt Count Lymph % (Auto) [place] % (Auto) Eos % (Auto) Baso % (Auto) Lymph # [place] # Eos # Baso # Seg Neutrophils % Monocytes % (Manual) Monocytes # (Manual) D-Dimer ABG pH ABG pO2 ABG HCO3 ABG O2 Saturation ABG Base Excess ABG Hemoglobin Oxyhemoglobin Sodium 150 H Potassium Chloride 110 H Carbon Dioxide 32 H BUN 32 H Creatinine Glucose 309 H POC Glucose 140 H Lactic Acid Calcium Magnesium AST ALT Lactate Dehydrogenase Total Creatine Kinase C-Reactive Protein Total Protein Albumin Free T4 Urine WBC (Auto) Urine Total Protein Digoxin Salicylates Acetaminophen 01/05/20 01/05/20 01/05/20 03:31 03:36 03:36 WBC RBC 3.46 L Hgb 8.4 L Hct 26.9 L MCV 78 L MCH 24 L MCHC 31 L RDW 19.0 H Plt Count Lymph % (Auto) [place] % (Auto) Eos % (Auto) Baso % (Auto) Lymph # [place] # Eos # Baso # Seg Neutrophils % Monocytes % (Manual) Monocytes # (Manual) D-Dimer ABG pH 7.454 H ABG pO2 113.0 H ABG HCO3 30.5 H ABG O2 Saturation ABG Base Excess 6.0 H ABG Hemoglobin 8.5 L Oxyhemoglobin Sodium 150 H Potassium Chloride 110.3 H Carbon Dioxide BUN 30 H Creatinine Glucose 148 H POC Glucose Lactic Acid Calcium Magnesium AST ALT Lactate Dehydrogenase Total Creatine Kinase C-Reactive Protein Total Protein Albumin Free T4 Urine WBC (Auto) Urine Total Protein Digoxin Salicylates Acetaminophen 01/05/20 01/05/20 01/05/20 05:21 09:56 11:45 WBC RBC Hgb Hct MCV MCH MCHC RDW Plt Count Lymph % (Auto) [place] % (Auto) Eos % (Auto) Baso % (Auto) Lymph # [place] # Eos # Baso # Seg Neutrophils % Monocytes % (Manual) Monocytes # (Manual) D-Dimer ABG pH ABG pO2 ABG HCO3 ABG O2 Saturation ABG Base Excess ABG Hemoglobin Oxyhemoglobin Sodium Potassium Chloride Carbon Dioxide BUN Creatinine Glucose POC Glucose 142 H 129 H 174 H Lactic Acid Calcium Magnesium AST ALT Lactate Dehydrogenase Total Creatine Kinase C-Reactive Protein Total Protein Albumin Free T4 Urine WBC (Auto) Urine Total Protein Digoxin Salicylates Acetaminophen 01/05/20 01/05/20 01/05/20 13:30 14:00 17:41 WBC RBC Hgb Hct MCV MCH MCHC RDW Plt Count Lymph % (Auto) [place] % (Auto) Eos % (Auto) Baso % (Auto) Lymph # [place] # Eos # Baso # Seg Neutrophils % Monocytes % (Manual) Monocytes # (Manual) D-Dimer ABG pH ABG pO2 ABG HCO3 ABG O2 Saturation ABG Base Excess ABG Hemoglobin Oxyhemoglobin Sodium Potassium Chloride Carbon Dioxide BUN 26 H Creatinine 1.6 H Glucose 302 H POC Glucose 168 H 136 H Lactic Acid Calcium Magnesium AST ALT Lactate Dehydrogenase Total Creatine Kinase C-Reactive Protein Total Protein Albumin Free T4 Urine WBC (Auto) Urine Total Protein Digoxin Salicylates Acetaminophen 01/05/20 01/05/20 01/06/20 20:38 23:32 03:50 WBC RBC Hgb Hct MCV MCH MCHC RDW Plt Count Lymph % (Auto) [place] % (Auto) Eos % (Auto) Baso % (Auto) Lymph # [place] # Eos # Baso # Seg Neutrophils % Monocytes % (Manual) Monocytes # (Manual) D-Dimer ABG pH ABG pO2 76.2 L ABG HCO3 30.1 H ABG O2 Saturation ABG Base Excess 5.1 H ABG Hemoglobin 9.5 L Oxyhemoglobin 93.8 L Sodium Potassium Chloride Carbon Dioxide BUN Creatinine Glucose POC Glucose 124 H 163 H Lactic Acid Calcium Magnesium AST ALT Lactate Dehydrogenase Total Creatine Kinase C-Reactive Protein Total Protein Albumin Free T4 Urine WBC (Auto) Urine Total Protein Digoxin Salicylates Acetaminophen 01/06/20 01/06/20 01/06/20 04:09 04:58 04:58 WBC RBC Hgb 8.8 L Hct 28.7 L MCV 78 L MCH 24 L MCHC 31 L RDW 18.7 H Plt Count 522 H Lymph % (Auto) [place] % (Auto) Eos % (Auto) Baso % (Auto) Lymph # [place] # Eos # Baso # Seg Neutrophils % Monocytes % (Manual) Monocytes # (Manual) D-Dimer ABG pH ABG pO2 ABG HCO3 ABG O2 Saturation ABG Base Excess ABG Hemoglobin Oxyhemoglobin Sodium 150 H D Potassium Chloride 109.3 H Carbon Dioxide BUN 25 H Creatinine Glucose 55 L POC Glucose 65 L Lactic Acid Calcium Magnesium AST ALT Lactate Dehydrogenase Total Creatine Kinase C-Reactive Protein Total Protein Albumin Free T4 Urine WBC (Auto) Urine Total Protein Digoxin Salicylates Acetaminophen 01/06/20 01/06/20 01/06/20 05:01 14:10 17:49 WBC RBC Hgb Hct MCV MCH MCHC RDW Plt Count Lymph % (Auto) [place] % (Auto) Eos % (Auto) Baso % (Auto) Lymph # [place] # Eos # Baso # Seg Neutrophils % Monocytes % (Manual) Monocytes # (Manual) D-Dimer ABG pH ABG pO2 ABG HCO3 ABG O2 Saturation ABG Base Excess ABG Hemoglobin Oxyhemoglobin Sodium Potassium Chloride Carbon Dioxide BUN Creatinine Glucose POC Glucose 60 L 119 H 131 H Lactic Acid Calcium Magnesium AST ALT Lactate Dehydrogenase Total Creatine Kinase C-Reactive Protein Total Protein Albumin Free T4 Urine WBC (Auto) Urine Total Protein Digoxin Salicylates Acetaminophen 01/06/20 01/07/20 01/07/20 21:08 02:11 05:19 WBC RBC Hgb Hct MCV MCH MCHC RDW Plt Count Lymph % (Auto) [place] % (Auto) Eos % (Auto) Baso % (Auto) Lymph # [place] # Eos # Baso # Seg Neutrophils % Monocytes % (Manual) Monocytes # (Manual) D-Dimer ABG pH ABG pO2 ABG HCO3 ABG O2 Saturation ABG Base Excess ABG Hemoglobin Oxyhemoglobin Sodium Potassium Chloride Carbon Dioxide BUN Creatinine Glucose POC Glucose 136 H 209 H 182 H Lactic Acid Calcium Magnesium AST ALT Lactate Dehydrogenase Total Creatine Kinase C-Reactive Protein Total Protein Albumin Free T4 Urine WBC (Auto) Urine Total Protein Digoxin Salicylates Acetaminophen 01/07/20 01/07/20 01/07/20 11:40 11:52 13:49 WBC RBC Hgb Hct MCV MCH MCHC RDW Plt Count Lymph % (Auto) [place] % (Auto) Eos % (Auto) Baso % (Auto) Lymph # [place] # Eos # Baso # Seg Neutrophils % Monocytes % (Manual) Monocytes # (Manual) D-Dimer ABG pH ABG pO2 ABG HCO3 ABG O2 Saturation ABG Base Excess ABG Hemoglobin Oxyhemoglobin Sodium Potassium Chloride Carbon Dioxide BUN 21 H Creatinine Glucose 190 H POC Glucose 180 H 184 H Lactic Acid Calcium Magnesium AST ALT Lactate Dehydrogenase Total Creatine Kinase C-Reactive Protein Total Protein Albumin Free T4 Urine WBC (Auto) Urine Total Protein Digoxin Salicylates Acetaminophen 01/07/20 01/07/20 01/07/20 17:54 22:19 Unknown WBC RBC Hgb Hct MCV MCH MCHC RDW Plt Count Lymph % (Auto) [place] % (Auto) Eos % (Auto) Baso % (Auto) Lymph # [place] # Eos # Baso # Seg Neutrophils % Monocytes % (Manual) Monocytes # (Manual) D-Dimer ABG pH ABG pO2 ABG HCO3 28.9 H ABG O2 Saturation ABG Base Excess 4.0 H ABG Hemoglobin 11.0 L Oxyhemoglobin 94.2 L Sodium Potassium Chloride Carbon Dioxide BUN Creatinine Glucose POC Glucose 190 H 299 H Lactic Acid Calcium Magnesium AST ALT Lactate Dehydrogenase Total Creatine Kinase C-Reactive Protein Total Protein Albumin Free T4 Urine WBC (Auto) Urine Total Protein Digoxin Salicylates Acetaminophen 01/08/20 01/08/20 01/08/20 02:45 05:26 05:27 WBC RBC Hgb Hct MCV MCH MCHC RDW Plt Count Lymph % (Auto) [place] % (Auto) Eos % (Auto) Baso % (Auto) Lymph # [place] # Eos # Baso # Seg Neutrophils % Monocytes % (Manual) Monocytes # (Manual) D-Dimer ABG pH ABG pO2 67.8 L ABG HCO3 26.5 H ABG O2 Saturation 93.2 L ABG Base Excess ABG Hemoglobin 8.1 L Oxyhemoglobin 90.4 L Sodium Potassium Chloride Carbon Dioxide BUN Creatinine Glucose POC Glucose 245 H 346 H Lactic Acid Calcium Magnesium AST ALT Lactate Dehydrogenase Total Creatine Kinase C-Reactive Protein Total Protein Albumin Free T4 Urine WBC (Auto) Urine Total Protein Digoxin Salicylates Acetaminophen 01/08/20 01/08/20 01/08/20 08:03 08:03 10:33 WBC RBC 3.14 L Hgb 7.6 L Hct 24.3 L MCV 77 L MCH 24 L MCHC 31 L RDW 18.3 H Plt Count 509 H Lymph % (Auto) [place] % (Auto) Eos % (Auto) Baso % (Auto) Lymph # [place] # Eos # Baso # Seg Neutrophils % Monocytes % (Manual) Monocytes # (Manual) D-Dimer ABG pH ABG pO2 ABG HCO3 ABG O2 Saturation ABG Base Excess ABG Hemoglobin Oxyhemoglobin Sodium 132 L D Potassium Chloride 94.7 L Carbon Dioxide BUN 22 H Creatinine Glucose 284 H POC Glucose 275 H Lactic Acid Calcium Magnesium AST ALT Lactate Dehydrogenase Total Creatine Kinase C-Reactive Protein Total Protein Albumin Free T4 Urine WBC (Auto) Urine Total Protein Digoxin Salicylates Acetaminophen 01/08/20 01/08/20 01/08/20 13:34 17:24 21:49 WBC RBC Hgb Hct MCV MCH MCHC RDW Plt Count Lymph % (Auto) [place] % (Auto) Eos % (Auto) Baso % (Auto) Lymph # [place] # Eos # Baso # Seg Neutrophils % Monocytes % (Manual) Monocytes # (Manual) D-Dimer ABG pH ABG pO2 ABG HCO3 ABG O2 Saturation ABG Base Excess ABG Hemoglobin Oxyhemoglobin Sodium Potassium Chloride Carbon Dioxide BUN Creatinine Glucose POC Glucose 273 H 294 H 265 H Lactic Acid Calcium Magnesium AST ALT Lactate Dehydrogenase Total Creatine Kinase C-Reactive Protein Total Protein Albumin Free T4 Urine WBC (Auto) Urine Total Protein Digoxin Salicylates Acetaminophen 01/09/20 01/09/20 01/09/20 00:13 03:45 05:55 WBC RBC Hgb Hct MCV MCH MCHC RDW Plt Count Lymph % (Auto) [place] % (Auto) Eos % (Auto) Baso % (Auto) Lymph # [place] # Eos # Baso # Seg Neutrophils % Monocytes % (Manual) Monocytes # (Manual) D-Dimer ABG pH ABG pO2 ABG HCO3 ABG O2 Saturation ABG Base Excess ABG Hemoglobin Oxyhemoglobin Sodium Potassium Chloride Carbon Dioxide BUN Creatinine Glucose POC Glucose 251 H 346 H 300 H Lactic Acid Calcium Magnesium AST ALT Lactate Dehydrogenase Total Creatine Kinase C-Reactive Protein Total Protein Albumin Free T4 Urine WBC (Auto) Urine Total Protein Digoxin Salicylates Acetaminophen 01/09/20 01/09/20 01/09/20 08:15 09:31 12:04 WBC RBC Hgb Hct MCV MCH MCHC RDW Plt Count Lymph % (Auto) [place] % (Auto) Eos % (Auto) Baso % (Auto) Lymph # [place] # Eos # Baso # Seg Neutrophils % Monocytes % (Manual) Monocytes # (Manual) D-Dimer ABG pH ABG pO2 ABG HCO3 ABG O2 Saturation ABG Base Excess ABG Hemoglobin Oxyhemoglobin Sodium 134 L Potassium Chloride 97.6 L Carbon Dioxide BUN 25 H Creatinine Glucose 240 H POC Glucose 191 H 230 H Lactic Acid Calcium Magnesium AST ALT Lactate Dehydrogenase Total Creatine Kinase C-Reactive Protein Total Protein Albumin Free T4 Urine WBC (Auto) Urine Total Protein Digoxin Salicylates Acetaminophen 01/09/20 01/09/20 01/09/20 13:46 17:31 22:28 WBC RBC Hgb Hct MCV MCH MCHC RDW Plt Count Lymph % (Auto) [place] % (Auto) Eos % (Auto) Baso % (Auto) Lymph # [place] # Eos # Baso # Seg Neutrophils % Monocytes % (Manual) Monocytes # (Manual) D-Dimer ABG pH ABG pO2 ABG HCO3 ABG O2 Saturation ABG Base Excess ABG Hemoglobin Oxyhemoglobin Sodium Potassium Chloride Carbon Dioxide BUN Creatinine Glucose POC Glucose 211 H 260 H 223 H Lactic Acid Calcium Magnesium AST ALT Lactate Dehydrogenase Total Creatine Kinase C-Reactive Protein Total Protein Albumin Free T4 Urine WBC (Auto) Urine Total Protein Digoxin Salicylates Acetaminophen 01/10/20 01/10/20 01/10/20 02:16 04:20 05:55 WBC RBC Hgb Hct MCV MCH MCHC RDW Plt Count Lymph % (Auto) [place] % (Auto) Eos % (Auto) Baso % (Auto) Lymph # [place] # Eos # Baso # Seg Neutrophils % Monocytes % (Manual) Monocytes # (Manual) D-Dimer ABG pH ABG pO2 95.3 H ABG HCO3 27.8 H ABG O2 Saturation ABG Base Excess ABG Hemoglobin 8.3 L Oxyhemoglobin Sodium Potassium Chloride Carbon Dioxide BUN Creatinine Glucose POC Glucose 219 H 245 H Lactic Acid Calcium Magnesium AST ALT Lactate Dehydrogenase Total Creatine Kinase C-Reactive Protein Total Protein Albumin Free T4 Urine WBC (Auto) Urine Total Protein Digoxin Salicylates Acetaminophen 01/10/20 01/10/20 01/10/20 10:38 15:08 15:45 WBC RBC Hgb Hct MCV MCH MCHC RDW Plt Count Lymph % (Auto) [place] % (Auto) Eos % (Auto) Baso % (Auto) Lymph # [place] # Eos # Baso # Seg Neutrophils % Monocytes % (Manual) Monocytes # (Manual) D-Dimer ABG pH ABG pO2 ABG HCO3 ABG O2 Saturation ABG Base Excess ABG Hemoglobin Oxyhemoglobin Sodium Potassium Chloride Carbon Dioxide BUN Creatinine Glucose POC Glucose 268 H 246 H 238 H Lactic Acid Calcium Magnesium AST ALT Lactate Dehydrogenase Total Creatine Kinase C-Reactive Protein Total Protein Albumin Free T4 Urine WBC (Auto) Urine Total Protein Digoxin Salicylates Acetaminophen 01/10/20 01/10/20 01/10/20 18:00 21:09 22:48 WBC RBC Hgb Hct MCV MCH MCHC RDW Plt Count Lymph % (Auto) [place] % (Auto) Eos % (Auto) Baso % (Auto) Lymph # [place] # Eos # Baso # Seg Neutrophils % Monocytes % (Manual) Monocytes # (Manual) D-Dimer ABG pH ABG pO2 ABG HCO3 ABG O2 Saturation ABG Base Excess ABG Hemoglobin Oxyhemoglobin Sodium Potassium Chloride Carbon Dioxide BUN Creatinine Glucose POC Glucose 187 H 176 H 189 H Lactic Acid Calcium Magnesium AST ALT Lactate Dehydrogenase Total Creatine Kinase C-Reactive Protein Total Protein Albumin Free T4 Urine WBC (Auto) Urine Total Protein Digoxin Salicylates Acetaminophen 01/11/20 01/11/20 01/11/20 03:07 05:45 05:45 WBC RBC 3.15 L Hgb 7.7 L Hct 24.9 L MCV 79 L MCH 24 L MCHC 31 L RDW 18.7 H Plt Count 667 H Lymph % (Auto) [place] % (Auto) Eos % (Auto) Baso % (Auto) Lymph # [place] # Eos # Baso # Seg Neutrophils % Monocytes % (Manual) Monocytes # (Manual) D-Dimer ABG pH ABG pO2 ABG HCO3 ABG O2 Saturation ABG Base Excess ABG Hemoglobin Oxyhemoglobin Sodium 148 H D Potassium 5.1 H Chloride 111.9 H Carbon Dioxide BUN 26 H Creatinine Glucose 236 H POC Glucose 253 H Lactic Acid Calcium Magnesium AST 67 H ALT Lactate Dehydrogenase Total Creatine Kinase C-Reactive Protein Total Protein 5.9 L Albumin 2.8 L Free T4 Urine WBC (Auto) Urine Total Protein Digoxin Salicylates Acetaminophen 01/11/20 01/11/20 01/11/20 06:10 12:59 14:22 WBC RBC Hgb Hct MCV MCH MCHC RDW Plt Count Lymph % (Auto) [place] % (Auto) Eos % (Auto) Baso % (Auto) Lymph # [place] # Eos # Baso # Seg Neutrophils % Monocytes % (Manual) Monocytes # (Manual) D-Dimer ABG pH ABG pO2 ABG HCO3 ABG O2 Saturation ABG Base Excess ABG Hemoglobin Oxyhemoglobin Sodium Potassium Chloride Carbon Dioxide BUN Creatinine Glucose POC Glucose 261 H 234 H 220 H Lactic Acid Calcium Magnesium AST ALT Lactate Dehydrogenase Total Creatine Kinase C-Reactive Protein Total Protein Albumin Free T4 Urine WBC (Auto) Urine Total Protein Digoxin Salicylates Acetaminophen 01/11/20 01/11/20 01/12/20 17:18 21:20 00:45 WBC RBC Hgb Hct MCV MCH MCHC RDW Plt Count Lymph % (Auto) [place] % (Auto) Eos % (Auto) Baso % (Auto) Lymph # [place] # Eos # Baso # Seg Neutrophils % Monocytes % (Manual) Monocytes # (Manual) D-Dimer ABG pH ABG pO2 ABG HCO3 ABG O2 Saturation ABG Base Excess ABG Hemoglobin Oxyhemoglobin Sodium Potassium Chloride Carbon Dioxide BUN Creatinine Glucose POC Glucose 264 H 299 H 289 H Lactic Acid Calcium Magnesium AST ALT Lactate Dehydrogenase Total Creatine Kinase C-Reactive Protein Total Protein Albumin Free T4 Urine WBC (Auto) Urine Total Protein Digoxin Salicylates Acetaminophen 01/12/20 01/12/20 01/12/20 04:35 06:10 11:29 WBC RBC Hgb Hct MCV MCH MCHC RDW Plt Count Lymph % (Auto) [place] % (Auto) Eos % (Auto) Baso % (Auto) Lymph # [place] # Eos # Baso # Seg Neutrophils % Monocytes % (Manual) Monocytes # (Manual) D-Dimer ABG pH ABG pO2 ABG HCO3 ABG O2 Saturation ABG Base Excess ABG Hemoglobin Oxyhemoglobin Sodium Potassium Chloride Carbon Dioxide BUN Creatinine Glucose POC Glucose 187 H 194 H 213 H Lactic Acid Calcium Magnesium AST ALT Lactate Dehydrogenase Total Creatine Kinase C-Reactive Protein Total Protein Albumin Free T4 Urine WBC (Auto) Urine Total Protein Digoxin Salicylates Acetaminophen 01/12/20 01/12/20 01/12/20 14:40 18:50 21:34 WBC RBC Hgb Hct MCV MCH MCHC RDW Plt Count Lymph % (Auto) [place] % (Auto) Eos % (Auto) Baso % (Auto) Lymph # [place] # Eos # Baso # Seg Neutrophils % Monocytes % (Manual) Monocytes # (Manual) D-Dimer ABG pH ABG pO2 ABG HCO3 ABG O2 Saturation ABG Base Excess ABG Hemoglobin Oxyhemoglobin Sodium Potassium Chloride Carbon Dioxide BUN Creatinine Glucose POC Glucose 288 H 292 H 147 H Lactic Acid Calcium Magnesium AST ALT Lactate Dehydrogenase Total Creatine Kinase C-Reactive Protein Total Protein Albumin Free T4 Urine WBC (Auto) Urine Total Protein Digoxin Salicylates Acetaminophen 01/12/20 01/13/20 01/13/20 23:16 04:00 05:27 WBC RBC Hgb Hct MCV MCH MCHC RDW Plt Count Lymph % (Auto) [place] % (Auto) Eos % (Auto) Baso % (Auto) Lymph # [place] # Eos # Baso # Seg Neutrophils % Monocytes % (Manual) Monocytes # (Manual) D-Dimer ABG pH ABG pO2 ABG HCO3 ABG O2 Saturation ABG Base Excess ABG Hemoglobin Oxyhemoglobin Sodium 149 H Potassium Chloride 112.4 H Carbon Dioxide 32 H BUN 28 H Creatinine Glucose 174 H POC Glucose 122 H 143 H Lactic Acid Calcium Magnesium AST ALT Lactate Dehydrogenase Total Creatine Kinase C-Reactive Protein Total Protein Albumin Free T4 Urine WBC (Auto) Urine Total Protein Digoxin Salicylates Acetaminophen 01/13/20 01/13/20 01/13/20 10:24 13:34 15:10 WBC RBC Hgb Hct MCV MCH MCHC RDW Plt Count Lymph % (Auto) [place] % (Auto) Eos % (Auto) Baso % (Auto) Lymph # [place] # Eos # Baso # Seg Neutrophils % Monocytes % (Manual) Monocytes # (Manual) D-Dimer ABG pH 7.223 L ABG pO2 ABG HCO3 33.1 H ABG O2 Saturation 94.7 L ABG Base Excess 4.2 H ABG Hemoglobin 8.5 L Oxyhemoglobin 92.1 L Sodium Potassium Chloride Carbon Dioxide BUN Creatinine Glucose POC Glucose 172 H 151 H Lactic Acid Calcium Magnesium AST ALT Lactate Dehydrogenase Total Creatine Kinase C-Reactive Protein Total Protein Albumin Free T4 Urine WBC (Auto) Urine Total Protein Digoxin Salicylates Acetaminophen 01/13/20 01/13/20 01/13/20 17:59 20:37 22:17 WBC RBC Hgb Hct MCV MCH MCHC RDW Plt Count Lymph % (Auto) [place] % (Auto) Eos % (Auto) Baso % (Auto) Lymph # [place] # Eos # Baso # Seg Neutrophils % Monocytes % (Manual) Monocytes # (Manual) D-Dimer ABG pH ABG pO2 ABG HCO3 ABG O2 Saturation ABG Base Excess ABG Hemoglobin Oxyhemoglobin Sodium Potassium Chloride Carbon Dioxide BUN Creatinine Glucose POC Glucose 114 H 152 H Lactic Acid Calcium Magnesium AST ALT Lactate Dehydrogenase Total Creatine Kinase C-Reactive Protein Total Protein Albumin Free T4 0.63 L Urine WBC (Auto) Urine Total Protein Digoxin Salicylates Acetaminophen 01/13/20 01/14/20 01/14/20 Unknown 02:10 05:20 WBC RBC 3.39 L Hgb 8.1 L Hct 28.4 L MCV MCH 24 L MCHC 29 L RDW 19.9 H Plt Count 713 H Lymph % (Auto) [place] % (Auto) 12.7 H Eos % (Auto) Baso % (Auto) 1.9 H Lymph # [place] # 1.3 H Eos # Baso # 0.2 H Seg Neutrophils % Monocytes % (Manual) Monocytes # (Manual) D-Dimer ABG pH ABG pO2 ABG HCO3 ABG O2 Saturation ABG Base Excess ABG Hemoglobin Oxyhemoglobin Sodium Potassium Chloride Carbon Dioxide BUN Creatinine Glucose POC Glucose 151 H 157 H Lactic Acid Calcium Magnesium AST ALT Lactate Dehydrogenase Total Creatine Kinase C-Reactive Protein Total Protein Albumin Free T4 Urine WBC (Auto) Urine Total Protein Digoxin Salicylates Acetaminophen 01/14/20 01/14/20 01/14/20 11:49 14:56 18:03 WBC RBC Hgb Hct MCV MCH MCHC RDW Plt Count Lymph % (Auto) [place] % (Auto) Eos % (Auto) Baso % (Auto) Lymph # [place] # Eos # Baso # Seg Neutrophils % Monocytes % (Manual) Monocytes # (Manual) D-Dimer ABG pH ABG pO2 ABG HCO3 ABG O2 Saturation ABG Base Excess ABG Hemoglobin Oxyhemoglobin Sodium Potassium Chloride Carbon Dioxide BUN Creatinine Glucose POC Glucose 139 H 112 H 134 H Lactic Acid Calcium Magnesium AST ALT Lactate Dehydrogenase Total Creatine Kinase C-Reactive Protein Total Protein Albumin Free T4 Urine WBC (Auto) Urine Total Protein Digoxin Salicylates Acetaminophen 01/14/20 01/15/20 01/15/20 22:03 02:21 05:28 WBC RBC Hgb Hct MCV MCH MCHC RDW Plt Count Lymph % (Auto) [place] % (Auto) Eos % (Auto) Baso % (Auto) Lymph # [place] # Eos # Baso # Seg Neutrophils % Monocytes % (Manual) Monocytes # (Manual) D-Dimer ABG pH ABG pO2 ABG HCO3 ABG O2 Saturation ABG Base Excess ABG Hemoglobin Oxyhemoglobin Sodium Potassium Chloride Carbon Dioxide BUN Creatinine Glucose POC Glucose 173 H 129 H 127 H Lactic Acid Calcium Magnesium AST ALT Lactate Dehydrogenase Total Creatine Kinase C-Reactive Protein Total Protein Albumin Free T4 Urine WBC (Auto) Urine Total Protein Digoxin Salicylates Acetaminophen 01/15/20 01/15/20 01/15/20 10:43 16:14 18:25 WBC RBC Hgb Hct MCV MCH MCHC RDW Plt Count Lymph % (Auto) [place] % (Auto) Eos % (Auto) Baso % (Auto) Lymph # [place] # Eos # Baso # Seg Neutrophils % Monocytes % (Manual) Monocytes # (Manual) D-Dimer ABG pH ABG pO2 ABG HCO3 ABG O2 Saturation ABG Base Excess ABG Hemoglobin Oxyhemoglobin Sodium Potassium Chloride Carbon Dioxide BUN Creatinine Glucose POC Glucose 150 H 133 H 166 H Lactic Acid Calcium Magnesium AST ALT Lactate Dehydrogenase Total Creatine Kinase C-Reactive Protein Total Protein Albumin Free T4 Urine WBC (Auto) Urine Total Protein Digoxin Salicylates Acetaminophen 01/15/20 01/16/20 01/16/20 23:03 02:11 06:00 WBC RBC 3.19 L Hgb 7.9 L Hct 26.2 L MCV 82 L MCH 25 L MCHC 30 L RDW 20.1 H Plt Count 466 H Lymph % (Auto) 12.9 L [place] % (Auto) 11.2 H Eos % (Auto) 11.0 H Baso % (Auto) Lymph # 1.1 L [place] # 0.9 H Eos # 0.9 H Baso # Seg Neutrophils % Monocytes % (Manual) Monocytes # (Manual) D-Dimer ABG pH ABG pO2 ABG HCO3 ABG O2 Saturation ABG Base Excess ABG Hemoglobin Oxyhemoglobin Sodium Potassium Chloride Carbon Dioxide BUN Creatinine Glucose POC Glucose 143 H 136 H Lactic Acid Calcium Magnesium AST ALT Lactate Dehydrogenase Total Creatine Kinase C-Reactive Protein Total Protein Albumin Free T4 Urine WBC (Auto) Urine Total Protein Digoxin Salicylates Acetaminophen 01/16/20 01/16/20 01/16/20 06:00 06:10 11:52 WBC RBC Hgb Hct MCV MCH MCHC RDW Plt Count Lymph % (Auto) [place] % (Auto) Eos % (Auto) Baso % (Auto) Lymph # [place] # Eos # Baso # Seg Neutrophils % Monocytes % (Manual) Monocytes # (Manual) D-Dimer ABG pH ABG pO2 ABG HCO3 ABG O2 Saturation ABG Base Excess ABG Hemoglobin Oxyhemoglobin Sodium 152 H Potassium Chloride 110.2 H Carbon Dioxide 36 H BUN 23 H Creatinine 0.7 L Glucose 161 H POC Glucose 192 H 184 H Lactic Acid Calcium Magnesium AST ALT Lactate Dehydrogenase Total Creatine Kinase C-Reactive Protein Total Protein Albumin Free T4 Urine WBC (Auto) Urine Total Protein Digoxin Salicylates Acetaminophen 01/16/20 01/16/20 01/16/20 15:15 17:12 22:12 WBC RBC Hgb Hct MCV MCH MCHC RDW Plt Count Lymph % (Auto) [place] % (Auto) Eos % (Auto) Baso % (Auto) Lymph # [place] # Eos # Baso # Seg Neutrophils % Monocytes % (Manual) Monocytes # (Manual) D-Dimer ABG pH ABG pO2 ABG HCO3 ABG O2 Saturation ABG Base Excess ABG Hemoglobin Oxyhemoglobin Sodium Potassium Chloride Carbon Dioxide BUN Creatinine Glucose POC Glucose 224 H 183 H 106 H Lactic Acid Calcium Magnesium AST ALT Lactate Dehydrogenase Total Creatine Kinase C-Reactive Protein Total Protein Albumin Free T4 Urine WBC (Auto) Urine Total Protein Digoxin Salicylates Acetaminophen 01/17/20 01/17/20 01/17/20 02:13 06:10 06:20 WBC RBC 3.50 L Hgb 8.6 L Hct 29.0 L MCV 83 L MCH 25 L MCHC 30 L RDW 21.1 H Plt Count 517 H Lymph % (Auto) [place] % (Auto) 9.7 H Eos % (Auto) 11.9 H Baso % (Auto) Lymph # [place] # Eos # 1.0 H Baso # Seg Neutrophils % Monocytes % (Manual) Monocytes # (Manual) D-Dimer ABG pH ABG pO2 ABG HCO3 ABG O2 Saturation ABG Base Excess ABG Hemoglobin Oxyhemoglobin Sodium Potassium Chloride Carbon Dioxide BUN Creatinine Glucose POC Glucose 164 H 178 H Lactic Acid Calcium Magnesium AST ALT Lactate Dehydrogenase Total Creatine Kinase C-Reactive Protein Total Protein Albumin Free T4 Urine WBC (Auto) Urine Total Protein Digoxin Salicylates Acetaminophen 01/17/20 01/17/20 01/17/20 06:20 10:48 13:23 WBC RBC Hgb Hct MCV MCH MCHC RDW Plt Count Lymph % (Auto) [place] % (Auto) Eos % (Auto) Baso % (Auto) Lymph # [place] # Eos # Baso # Seg Neutrophils % Monocytes % (Manual) Monocytes # (Manual) D-Dimer ABG pH ABG pO2 ABG HCO3 ABG O2 Saturation ABG Base Excess ABG Hemoglobin Oxyhemoglobin Sodium 148 H Potassium Chloride Carbon Dioxide 34 H BUN 21 H Creatinine 0.6 L Glucose 151 H POC Glucose 172 H 161 H Lactic Acid Calcium Magnesium AST ALT Lactate Dehydrogenase Total Creatine Kinase C-Reactive Protein Total Protein Albumin Free T4 Urine WBC (Auto) Urine Total Protein Digoxin Salicylates Acetaminophen 01/17/20 01/17/20 01/18/20 17:23 21:46 04:45 WBC RBC 3.28 L Hgb 8.0 L Hct 27.0 L MCV 82 L MCH 24 L MCHC 30 L RDW 21.0 H Plt Count 450 H Lymph % (Auto) [place] % (Auto) 11.5 H Eos % (Auto) 13.1 H Baso % (Auto) Lymph # [place] # Eos # 0.9 H Baso # Seg Neutrophils % Monocytes % (Manual) Monocytes # (Manual) D-Dimer ABG pH ABG pO2 ABG HCO3 ABG O2 Saturation ABG Base Excess ABG Hemoglobin Oxyhemoglobin Sodium Potassium Chloride Carbon Dioxide BUN Creatinine Glucose POC Glucose 138 H 106 H Lactic Acid Calcium Magnesium AST ALT Lactate Dehydrogenase Total Creatine Kinase C-Reactive Protein Total Protein Albumin Free T4 Urine WBC (Auto) Urine Total Protein Digoxin Salicylates Acetaminophen 01/18/20 01/18/20 01/18/20 04:45 10:38 12:19 WBC RBC Hgb Hct MCV MCH MCHC RDW Plt Count Lymph % (Auto) [place] % (Auto) Eos % (Auto) Baso % (Auto) Lymph # [place] # Eos # Baso # Seg Neutrophils % Monocytes % (Manual) Monocytes # (Manual) D-Dimer ABG pH ABG pO2 ABG HCO3 ABG O2 Saturation ABG Base Excess ABG Hemoglobin Oxyhemoglobin Sodium Potassium Chloride Carbon Dioxide 35 H BUN Creatinine Glucose 71 L POC Glucose 106 H 138 H Lactic Acid Calcium Magnesium AST ALT Lactate Dehydrogenase Total Creatine Kinase C-Reactive Protein Total Protein Albumin Free T4 Urine WBC (Auto) Urine Total Protein Digoxin Salicylates Acetaminophen 01/18/20 01/18/20 01/19/20 13:38 17:54 03:36 WBC RBC Hgb Hct MCV MCH MCHC RDW Plt Count Lymph % (Auto) [place] % (Auto) Eos % (Auto) Baso % (Auto) Lymph # [place] # Eos # Baso # Seg Neutrophils % Monocytes % (Manual) Monocytes # (Manual) D-Dimer ABG pH ABG pO2 ABG HCO3 ABG O2 Saturation ABG Base Excess ABG Hemoglobin Oxyhemoglobin Sodium Potassium Chloride Carbon Dioxide BUN Creatinine Glucose POC Glucose 129 H 144 H 185 H Lactic Acid Calcium Magnesium AST ALT Lactate Dehydrogenase Total Creatine Kinase C-Reactive Protein Total Protein Albumin Free T4 Urine WBC (Auto) Urine Total Protein Digoxin Salicylates Acetaminophen 01/19/20 01/19/20 01/19/20 05:45 05:45 06:16 WBC RBC 3.30 L Hgb 8.1 L Hct 27.2 L MCV 82 L MCH 25 L MCHC 30 L RDW 20.6 H Plt Count Lymph % (Auto) 10.3 L [place] % (Auto) 13.0 H Eos % (Auto) 7.9 H Baso % (Auto) Lymph # 0.8 L [place] # 1.0 H Eos # 0.6 H Baso # Seg Neutrophils % Monocytes % (Manual) Monocytes # (Manual) D-Dimer ABG pH ABG pO2 ABG HCO3 ABG O2 Saturation ABG Base Excess ABG Hemoglobin Oxyhemoglobin Sodium Potassium Chloride Carbon Dioxide 34 H BUN Creatinine Glucose 167 H POC Glucose 182 H Lactic Acid Calcium Magnesium AST ALT Lactate Dehydrogenase Total Creatine Kinase C-Reactive Protein Total Protein Albumin Free T4 Urine WBC (Auto) Urine Total Protein Digoxin Salicylates Acetaminophen 01/19/20 01/19/20 01/19/20 09:18 13:46 18:17 WBC RBC Hgb Hct MCV MCH MCHC RDW Plt Count Lymph % (Auto) [place] % (Auto) Eos % (Auto) Baso % (Auto) Lymph # [place] # Eos # Baso # Seg Neutrophils % Monocytes % (Manual) Monocytes # (Manual) D-Dimer ABG pH ABG pO2 ABG HCO3 ABG O2 Saturation ABG Base Excess ABG Hemoglobin Oxyhemoglobin Sodium Potassium Chloride Carbon Dioxide BUN Creatinine Glucose POC Glucose 181 H 238 H 189 H Lactic Acid Calcium Magnesium AST ALT Lactate Dehydrogenase Total Creatine Kinase C-Reactive Protein Total Protein Albumin Free T4 Urine WBC (Auto) Urine Total Protein Digoxin Salicylates Acetaminophen 01/19/20 01/20/20 01/20/20 22:19 02:08 05:54 WBC RBC Hgb Hct MCV MCH MCHC RDW Plt Count Lymph % (Auto) [place] % (Auto) Eos % (Auto) Baso % (Auto) Lymph # [place] # Eos # Baso # Seg Neutrophils % Monocytes % (Manual) Monocytes # (Manual) D-Dimer ABG pH ABG pO2 ABG HCO3 ABG O2 Saturation ABG Base Excess ABG Hemoglobin Oxyhemoglobin Sodium Potassium Chloride Carbon Dioxide BUN Creatinine Glucose POC Glucose 138 H 196 H 200 H Lactic Acid Calcium Magnesium AST ALT Lactate Dehydrogenase Total Creatine Kinase C-Reactive Protein Total Protein Albumin Free T4 Urine WBC (Auto) Urine Total Protein Digoxin Salicylates Acetaminophen 01/20/20 10:40 WBC RBC Hgb Hct MCV MCH MCHC RDW Plt Count Lymph % (Auto) [place] % (Auto) Eos % (Auto) Baso % (Auto) Lymph # [place] # Eos # Baso # Seg Neutrophils % Monocytes % (Manual) Monocytes # (Manual) D-Dimer ABG pH ABG pO2 ABG HCO3 ABG O2 Saturation ABG Base Excess ABG Hemoglobin Oxyhemoglobin Sodium Potassium Chloride Carbon Dioxide BUN Creatinine Glucose POC Glucose 163 H Lactic Acid Calcium Magnesium AST ALT Lactate Dehydrogenase Total Creatine Kinase C-Reactive Protein Total Protein Albumin Free T4 Urine WBC (Auto) Urine Total Protein Digoxin Salicylates Acetaminophen Chest x-ray: image reviewed (Bilateral alveolar infiltrates, with right pleural effusion) Allied health notes reviewed: RT
--- NOTE | 2020-01-20 17:52 | Progress Note ---
Assessment and Plan Assessment and plan: --COVID-19 negative x2 --Acute hypoxic respiratory failure; status post trach and PEG On vent, continue current management, pulmonary critical following --Sepsis with septic shock; requiring vasopressors Mild improvement, monitor off vasopressors Supportive care --Bilateral pneumonia;Completed antibiotics, monitor off antibiotics, Ventilatory support --Acute kidney injury/ATN; Resolved, avoid nephrotoxins --Obesity; BMI 33.1 Patient needs weight reduction when medically stable --Sinus bradycardia; present on admission Now resolved, heart rate in 70s, Cardiology following --Hypothyroidism; continue Synthroid --History of congestive heart failure --DVT prophylaxis Discharge planning per case management; CM assisting with LTAC placement Plan of care reviewed with the patient's nurse Routing Machine Operator recommendations noted and appreciated Critical care time 32 minutes 01/18/20; patient underwent trach and PEG today, tolerated the procedure well 01/19/20; started on PEG feeds, tolerated well, awaiting LTAC/SNF placement 01/20/20; clinically stable, pending placement The high probability of a clinically significant, sudden or life threatening deterioration of the [renal, respiratory and cardiac] system(s) required my full and direct attention, intervention and personal management. The aggregate critical care time was [32] minutes. This time is in addition to time spent performing reported procedures but includes the following: [x] Data Review and interpretation [x] Patient assessment and monitoring of vital signs [x] Documentation [x] Medication orders and management History Interval history: I have seen and examined the patient at bedside in ICU this morning Patient's chart medications, tests and reports reviewed Patient had trach and PEG on ventilatory support and tube feeding Hospitalist Physical - Constitutional Vitals: Temp Pulse Resp BP Pulse Ox 98.3 F 79 12 143/73 92 01/20/20 16:00 01/20/20 17:00 01/20/20 17:00 01/20/20 17:00 01/20/20 17:00 General appearance: Present: severe distress, well-nourished, obese, other (Tracheostomy on vent) - EENT Eyes: Present: PERRL, EOM intact ENT: other (Tracheostomy on vent) - Neck Neck: Present: supple, normal ROM - Respiratory Respiratory effort: normal Respiratory: bilateral: diminished, negative: rales, rhonchi, wheezing - Cardiovascular Rhythm: regular Heart Sounds: Present: S1 & S2 - Extremities Extremities: no ischemia, No edema - Abdominal General gastrointestinal: soft, non-tender, non-distended, normal bowel sounds, other (PEG tube in place) - Integumentary Integumentary: Present: clear, warm - Psychiatric Psychiatric: other (On vent) - Neurologic Neurologic: moves all extremities HEART Score - HEART Score Troponin: Troponin T 0.011 ng/mL (0.00-0.029) 12/18/19 14:45 Results - Labs CBC & Chem 7: 01/19/20 05:45 01/19/20 05:45 Labs: Laboratory Last Values WBC 7.8 K/mm3 (4.5-11.0) 01/19/20 05:45 RBC 3.30 M/mm3 (3.65-5.03) L 01/19/20 05:45 Hgb 8.1 gm/dl (11.8-15.2) L 01/19/20 05:45 Hct 27.2 % (35.5-45.6) L 01/19/20 05:45 MCV 82 fl (84-94) L 01/19/20 05:45 MCH 25 pg (28-32) L 01/19/20 05:45 MCHC 30 % (32-34) L 01/19/20 05:45 RDW 20.6 % (13.2-15.2) H 01/19/20 05:45 Plt Count 387 K/mm3 (140-440) 01/19/20 05:45 Lymph % (Auto) 10.3 % (13.4-35.0) L 01/19/20 05:45 [place] % (Auto) 13.0 % (0.0-7.3) H 01/19/20 05:45 Eos % (Auto) 7.9 % (0.0-4.3) H 01/19/20 05:45 Baso % (Auto) 0.6 % (0.0-1.8) 01/19/20 05:45 Lymph # 0.8 K/mm3 (1.2-5.4) L 01/19/20 05:45 [place] # 1.0 K/mm3 (0.0-0.8) H 01/19/20 05:45 Eos # 0.6 K/mm3 (0.0-0.4) H 01/19/20 05:45 Baso # 0.0 K/mm3 (0.0-0.1) 01/19/20 05:45 Add Manual Diff Complete 12/24/19 04:53 Total Counted 100 12/24/19 04:53 Seg Neutrophils % 68.2 % (40.0-70.0) 01/19/20 05:45 Seg Neuts % (Manual) 60.0 % (40.0-70.0) 12/24/19 04:53 Band Neutrophils % 0 % 12/24/19 04:53 Lymphocytes % (Manual) 20.0 % (13.4-35.0) 12/24/19 04:53 Reactive Lymphs % (Man) 0 % 12/24/19 04:53 Monocytes % (Manual) 15.0 % (0.0-7.3) H 12/24/19 04:53 Eosinophils % (Manual) 4.0 % (0.0-4.3) 12/24/19 04:53 Basophils % (Manual) 0 % (0.0-1.8) 12/24/19 04:53 Metamyelocytes % 1.0 % 12/24/19 04:53 Myelocytes % 0 % 12/24/19 04:53 Promyelocytes % 0 % 12/24/19 04:53 Blast Cells % 0 % 12/24/19 04:53 Nucleated RBC % Not Reportable 12/24/19 04:53 Seg Neutrophils # 5.3 K/mm3 (1.8-7.7) 01/19/20 05:45 Seg Neutrophils # Man 3.5 K/mm3 (1.8-7.7) 12/24/19 04:53 Band Neutrophils # 0.0 K/mm3 12/24/19 04:53 Lymphocytes # (Manual) 1.2 K/mm3 (1.2-5.4) 12/24/19 04:53 Abs React Lymphs (Man) 0.0 K/mm3 12/24/19 04:53 Monocytes # (Manual) 0.9 K/mm3 (0.0-0.8) H 12/24/19 04:53 Eosinophils # (Manual) 0.2 K/mm3 (0.0-0.4) 12/24/19 04:53 Basophils # (Manual) 0.0 K/mm3 (0.0-0.1) 12/24/19 04:53 Metamyelocytes # 0.1 K/mm3 12/24/19 04:53 Myelocytes # 0.0 K/mm3 12/24/19 04:53 Promyelocytes # 0.0 K/mm3 12/24/19 04:53 Blast Cells # 0.0 K/mm3 12/24/19 04:53 WBC Morphology Not Reportable 12/24/19 04:53 Hypersegmented Neuts Not Reportable 12/24/19 04:53 Hyposegmented Neuts Not Reportable 12/24/19 04:53 Hypogranular Neuts Not Reportable 12/24/19 04:53 Smudge Cells Not Reportable 12/24/19 04:53 Toxic Granulation Not Reportable 12/24/19 04:53 Toxic Vacuolation Not Reportable 12/24/19 04:53 Dohle Bodies Not Reportable 12/24/19 04:53 Pelger-Huet Anomaly Not Reportable 12/24/19 04:53 Mervin Rods Not Reportable 12/24/19 04:53 Platelet Estimate Consistent w auto 12/24/19 04:53 Clumped Platelets Not Reportable 12/24/19 04:53 Plt Clumps, EDTA Not Reportable 12/24/19 04:53 Large Platelets Not Reportable 12/24/19 04:53 Giant Platelets Not Reportable 12/24/19 04:53 Platelet Satelliting Not Reportable 12/24/19 04:53 Plt Morphology Comment Not Reportable 12/24/19 04:53 RBC Morphology Not Reportable 12/24/19 04:53 Dimorphic RBCs Not Reportable 12/24/19 04:53 Polychromasia Rare 12/24/19 04:53 Hypochromasia 1+ 12/24/19 04:53 Poikilocytosis Not Reportable 12/24/19 04:53 Anisocytosis 1+ 12/24/19 04:53 Microcytosis Few 12/24/19 04:53 Macrocytosis Not Reportable 12/24/19 04:53 Spherocytes Not Reportable 12/24/19 04:53 Pappenheimer Bodies Not Reportable 12/24/19 04:53 Sickle Cells Not Reportable 12/24/19 04:53 Target Cells Not Reportable 12/24/19 04:53 Tear Drop Cells Not Reportable 12/24/19 04:53 Ovalocytes Few 12/24/19 04:53 Helmet Cells Not Reportable 12/24/19 04:53 [place] Bodies Not Reportable 12/24/19 04:53 [place] Rings Not Reportable 12/24/19 04:53 Ileana Cells Not Reportable 12/24/19 04:53 Bite Cells Not Reportable 12/24/19 04:53 Crenated Cell Not Reportable 12/24/19 04:53 Elliptocytes Not Reportable 12/24/19 04:53 Acanthocytes (Spur) Not Reportable 12/24/19 04:53 Rouleaux Not Reportable 12/24/19 04:53 Hemoglobin C Crystals Not Reportable 12/24/19 04:53 Schistocytes Not Reportable 12/24/19 04:53 Malaria parasites Not Reportable 12/24/19 04:53 Gianni Bodies Not Reportable 12/24/19 04:53 Hem Pathologist Commnt No 12/24/19 04:53 PT 13.3 Sec. (12.2-14.9) 01/18/20 04:45 INR 1.03 (0.87-1.13) 01/18/20 04:45 APTT 29.4 Sec. (24.2-36.6) 12/18/19 14:45 D-Dimer 534.45 ng/mlDDU (0-234) H 12/18/19 14:45 ABG pH 7.223 pH Units (7.350-7.450) L 01/13/20 15:10 ABG pCO2 82.3 mm Hg 01/13/20 15:10 ABG pO2 81.4 mm Hg (80.0-90.0) 01/13/20 15:10 ABG HCO3 33.1 mmol/L (20.0-26.0) H 01/13/20 15:10 ABG O2 Saturation 94.7 % (95.0-99.0) L 01/13/20 15:10 ABG O2 Content 11.2 (0.0-44) 01/13/20 15:10 ABG Base Excess 4.2 mmol/L (-2.0-3.0) H 01/13/20 15:10 ABG Hemoglobin 8.5 gm/dl (14.0-18.0) L 01/13/20 15:10 ABG Carboxyhemoglobin 2.0 % (0.0-5.0) 01/13/20 15:10 ABG Methemoglobin 0.7 % (0.0-1.5) 01/13/20 15:10 Oxyhemoglobin 92.1 % (95.0-99.0) L 01/13/20 15:10 FiO2 50 % 01/13/20 15:10 Sodium 144 mmol/L (137-145) 01/19/20 05:45 Potassium 4.6 mmol/L (3.6-5.0) 01/19/20 05:45 Chloride 101.5 mmol/L (98-107) 01/19/20 05:45 Carbon Dioxide 34 mmol/L (22-30) H 01/19/20 05:45 Anion Gap 13 mmol/L 01/19/20 05:45 BUN 15 mg/dL (9-20) 01/19/20 05:45 Creatinine 0.9 mg/dL (0.8-1.5) 01/19/20 05:45 Estimated GFR > 60 ml/min 01/19/20 05:45 BUN/Creatinine Ratio 17 % 01/19/20 05:45 Glucose 167 mg/dL (75-100) H 01/19/20 05:45 POC Glucose 163 (70-105) H 01/20/20 10:40 Lactic Acid 1.70 mmol/L (0.7-2.0) 12/30/19 05:06 Calcium 8.6 mg/dL (8.4-10.2) 01/19/20 05:45 Phosphorus 3.70 mg/dL (2.5-4.5) 12/27/19 03:48 Magnesium 2.60 mg/dL (1.7-2.3) H 12/30/19 05:06 Ferritin 83.4 ng/mL (13.0-400.0) 12/18/19 14:45 Total Bilirubin 0.20 mg/dL (0.1-1.2) 01/11/20 05:45 AST 67 units/L (5-40) H 01/11/20 05:45 ALT 45 units/L (7-56) 01/11/20 05:45 Alkaline Phosphatase 111 units/L (35-129) 01/11/20 05:45 Ammonia 39.0 umol/L (25-60) 12/18/19 14:45 Lactate Dehydrogenase 235 units/L (91-180) H 12/18/19 14:45 Lactate Dehydrogenase 236 units/L (91-180) H 12/18/19 14:45 Total Creatine Kinase 40 units/L (55-170) L 12/18/19 14:45 Troponin T 0.011 ng/mL (0.00-0.029) 12/18/19 14:45 C-Reactive Protein 8.40 mg/dL (0.00-1.30) H 12/18/19 14:45 C-Reactive Protein 8.50 mg/dL (0.00-1.30) H 12/18/19 14:45 Total Protein 5.9 g/dL (6.3-8.2) L 01/11/20 05:45 Albumin 2.8 g/dL (3.9-5) L 01/11/20 05:45 Albumin/Globulin Ratio 0.9 % 01/11/20 05:45 Procalcitonin 0.22 ng/mL (<0.15) 12/18/19 14:45 TSH 1.460 mlU/mL (0.270-4.200) 01/13/20 20:37 Free T4 0.63 ng/dL (0.76-1.46) L 01/13/20 20:37 Urine Color Yellow (Yellow) 12/19/19 16:50 Urine Turbidity Clear (Clear) 12/19/19 16:50 Urine pH 5.0 (5.0-7.0) 12/19/19 16:50 Ur Specific [place] 1.010 (1.003-1.030) 12/19/19 16:50 Urine Protein <15 mg/dl mg/dL (Negative) 12/19/19 16:50 Urine Glucose (UA) 150 mg/dL (Negative) 12/19/19 16:50 Urine Ketones Neg mg/dL (Negative) 12/19/19 16:50 Urine Blood Neg (Negative) 12/19/19 16:50 Urine Nitrite Neg (Negative) 12/19/19 16:50 Urine Bilirubin Neg (Negative) 12/19/19 16:50 Urine Urobilinogen < 2.0 mg/dL (<2.0) 12/19/19 16:50 Ur Leukocyte Esterase Tr (Negative) 12/19/19 16:50 Urine WBC (Auto) 7.0 /HPF (0.0-6.0) H 12/19/19 16:50 Urine RBC (Auto) 4.0 /HPF (0.0-6.0) 12/19/19 16:50 U Epithel Cells (Auto) 1.0 /HPF (0-13.0) 12/19/19 16:50 Urine Bacteria (Auto) 1+ /HPF (Negative) 12/19/19 16:50 Urine Mucus Few /HPF 12/19/19 16:50 Urine Osmolality 140 Mosm/kg 12/25/19 16:45 Urine Creatinine < 4.2 mg/dL (0.1-20.0) 12/25/19 16:45 Urine Sodium 10 mmol/L 12/25/19 16:45 Urine Total Protein < 4 mg/dL (5-11.8) L 12/25/19 16:45 Digoxin 0.3 ng/mL (0.9-2.0) L 12/18/19 14:45 Salicylates < 0.3 mg/dL (2.8-20.0) L 12/18/19 14:45 Acetaminophen < 5.0 ug/mL (10.0-30.0) L 12/18/19 14:45 Plasma/Serum Alcohol < 0.01 % (0-0.07) 12/18/19 14:45 Coronavirus (PCR) Negative (Negative) 12/21/19 14:45 AFB Identification 01/05/20 09:05 Fungal Id Prelim 01/05/20 09:05 Blood Type A POSITIVE 01/18/20 04:45 Antibody Screen Negative 01/18/20 04:45 - Diagnostic Impressions Diagnostic Impressions: Echocardiogram 12/28/19 14:07 Transthoracic Echocardiogram Indication: SOB BP: 95/51 HR: 99 Conclusions *The left ventricular chamber size is mildly dilated. *There is no left ventricular hypertrophy. *Global left ventricular systolic function is mildly decreased. *The estimated ejection fraction is 45-50%. *Abnormal left ventricular diastolic filling is observed, consistent with impaired relaxation. *The right ventricular global systolic function is mildly reduced. *The right ventricular systolic pressure is calculated at 53 mmHg. Findings Left Ventricle: The left ventricular chamber size is mildly dilated. There is no left ventricular hypertrophy. Global left ventricular systolic function is mildly decreased. The estimated ejection fraction is 45-50%. Abnormal left ventricular diastolic filling is observed, consistent with impaired relaxation. Left Atrium: The left atrial chamber size is normal. Right Ventricle: The right ventricular cavity size is normal. The right ventricular global systolic function is mildly reduced. Right Atrium: The right atrial cavity size is normal. Aortic Valve: The aortic valve leaflets are mildly thickened. There is no evidence of aortic regurgitation. Mitral Valve: The mitral valve leaflets are mildly thickened. There is no evidence of mitral regurgitation. Tricuspid Valve: The tricuspid valve leaflets are normal. There is mild tricuspid regurgitation. The right ventricular systolic pressure is calculated at 53 mmHg. Pulmonic Valve: The pulmonic valve appears normal. There is trace pulmonic regurgitation. Pericardium: There is no pericardial effusion. Aorta: The aorta appears normal. Venous: The inferior vena cava is dilated. Measurements Chambers 2D Name Value Normal Range IVSd (2D) 1.08 cm (0.6 - 1.1) LVPWd (2D) 1 cm (0.6 - 1.1) LVIDd (2D) 4.67 cm (3.7 - 5.6) LVIDs (2D) 3.89 cm (2 - 3.8) LV FS (2D) 16.76 % - EF Teichholz (2D) 35.14 % - Ao root diameter (2D) 2.86 cm (2 - 3.7) Volumes/Mass Name Value Normal Range LA ESV SP 4CH (A/L) 31.8 ml - LA ESV SP 2CH (A/L) 27.37 ml - LA ESV BP (A/L) 33.43 ml - LA ESV BP (A/L) index 14.11 ml/m2 - LA ESV SP 4CH (MOD) 26.83 ml - LA ESV SP 2CH (MOD) 29.59 ml - LA ESV BP (MOD) 30.47 ml - LA ESV BP (MOD) index 12.86 ml/m2 - Diastolic/Systolic Function Name Value Normal Range MV E-wave Vmax 0.39 m/sec - MV deceleration time 115.69 msec - MV A-wave Vmax 0.63 m/sec - MV E:A ratio 0.62 ratio - Aortic Valve Name Value Normal Range AV Vmax 1.14 m/sec - AV VTI 20.1 cm - AV peak gradient 5.17 mmHg - AV mean gradient 3.89 mmHg - LVOT diameter 2.02 cm - LVOT Vmax 0.99 m/sec - LVOT VTI 16.45 cm - LVOT peak gradient 3.95 mmHg - LVOT mean gradient 2.45 mmHg - SV LVOT 52.45 ml - RALPH (continuity Vmax) 2.78 cm2 - RALPH (continuity VTI) 2.61 cm2 - Tricuspid Valve Name Value Normal Range TR Vmax 3.36 m/sec - TR peak gradient 45 mmHg - RAP 8 mmHg - RVSP 53 mmHg - IVC diameter 2.33 cm (1.2 - 2.3) Pulmonic Valve/Qp:Qs Name Value Normal Range PV Vmax 0.89 m/sec - PV peak gradient 3.16 mmHg - VT end-diastolic Vmax 1.42 m/sec - PV acceleration time 79.92 msec - Sykes/IV: Voiding Method Condom Catheter IV Catheter Type [Right Upper PICC Line arm] IV Catheter Type [Right Leg] Intra-osseous IV Catheter Type [Right Wrist] Peripheral IV IV Catheter Type [Right Hand] INT / Saline Lock IV Catheter Type [Left Hand] INT / Saline Lock IV Catheter Type [Left Forearm INT / Saline Lock ] IV Catheter Type [Left Triple Lumen Cath Internal Jugular] Active Medications - Current Medications Current Medications: Generic Name Dose Route Start Last Admin Trade Name Freq PRN Reason Stop Dose Admin Acetaminophen 650 mg 12/29/19 09:21 01/03/20 18:31 Tylenol PO 650 mg Q4H PRN Administration Non Cardiac Pain or Temp>100.5 Albuterol/Ipratropium 1 ampul 12/18/19 14:00 01/20/20 13:17 Duoneb *Not For Prn Use* IH 1 ampul TIDRT SHANEL Administration Lipase/Protease/Amylase 1 each 12/19/19 08:29 Pancreaze 10,500 Unit FEEDTUBE PRN PRN For Clogged Feeding Tube Atropine Sulfate 1 mg 01/09/20 13:50 01/10/20 18:00 Atropine 0.1% (Cardiac) IV 1 mg PRN PRN Administration Bradycardia Bisacodyl 10 mg 01/02/20 15:48 01/02/20 18:25 Dulcolax VT 10 mg QDAY PRN Administration Constipation Dextrose 50 ml 01/18/20 08:22 01/18/20 09:17 D50w (25gm) Syringe IV 50 ml Q30MIN PRN Administration Hypoglycemia Protocol Docusate Sodium 100 mg 01/01/20 22:00 01/20/20 10:42 Colace PO 100 mg BID SHANEL Administration Famotidine 20 mg 12/20/19 10:00 01/20/20 10:42 Pepcid PO 20 mg BID SHANEL Administration Fentanyl 50 mcg 12/27/19 16:57 01/19/20 22:00 Sublimaze IV 50 mcg Q10MIN PRN Administration ANALGESIA Hydrophilic Ointment 1 applic 12/18/19 12:35 Vaseline Lip Therapy TP Q2HR PRN Dry Lips Fentanyl Citrate 2,000 mcg in 100 mls @ 5.85 mls/hr 12/27/19 17:00 01/20/20 17:09 Fentanyl Drip Premix IV 3 mcg/kg/hr TITR SHANEL 17.55 mls/hr Administration Protocol 1 MCG/KG/HR Norepinephrine 4 mg in 250 mls @ 7.5 mls/hr 12/28/19 15:00 01/18/20 14:30 Levophed Drip 4 Mg/Ns 250 Ml IV 0 mcg/min TITR SHANEL 0 mls/hr Titration Protocol 2 MCG/MIN Vasopressin 20 unit/ Sodium 101 mls @ 9.09 mls/hr 12/30/19 12:30 01/01/20 13:44 Chloride IV 0 units/min TITR SHANEL 0 mls/hr Titration Protocol 0.03 UNITS/MIN Dopamine HCl/Dextrose 800 mg in 250 mls @ 4.388 mls/hr 12/31/19 16:00 01/20/20 07:55 Intropin Drip 800 Mg/D5w 250 Ml IV 0 mcg/kg/min TITR SHANEL 0 mls/hr Titration Protocol 2 MCG/KG/MIN Insulin Glargine 15 units 01/10/20 14:00 01/20/20 10:45 Lantus SUB-Q 15 units BID SHANEL Administration Insulin Human Lispro 0 unit 01/20/20 18:00 01/20/20 17:09 Humalog SUB-Q Not Given Q6HR SHANEL Protocol Levothyroxine Sodium 88 mcg 12/19/19 06:00 01/20/20 06:22 Synthroid PO 88 mcg QAM@0600 SHANEL Administration Multi-Ingred Cream/Lotion/Oil/Oint 1 applic 12/18/19 12:35 Artificial Tears Ophth Oint OU Q4HR PRN Dry Eye(s) Polyethylene Glycol 17 gm 01/01/20 22:00 01/19/20 22:00 Miralax 3350 PO Not Given QHS SHANEL Simple Syrup 15 ml 12/19/19 08:29 01/06/20 04:58 Simple Syrup FEEDTUBE 15 ml PRN PRN Administration Hypoglycemia Simple Syrup 30 ml 12/19/19 08:29 Simple Syrup FEEDTUBE PRN PRN Hypoglycemia Sodium Bicarbonate 325 mg 12/19/19 08:29 Sodium Bicarbonate FEEDTUBE PRN PRN For Clogged Feeding Tube Sodium Chloride 10 ml 12/18/19 22:00 01/20/20 10:42 Sodium Chloride Flush Syringe 10 Ml IV 10 ml BID SHANEL Administration Sodium Chloride 10 ml 12/18/19 13:31 Sodium Chloride Flush Syringe 10 Ml IV PRN PRN LINE FLUSH Nutrition/Malnutrition Assess - Dietary Evaluation Nutrition/Malnutrition Findings: Nutrition Notes Start: 12/19/19 08:16 Freq: Status: Active Protocol: Document 01/20/20 11:39 LM (Rec: 01/20/20 11:42 LM [id number]) Nutrition Notes Initial or Follow up Reassessment Current Diagnosis Diabetes,Sepsis,Hypertension, Heart Failure,Respiratory Failure Other Pertinent Diagnosis COVID-19 (-), pneu Current Diet Vital AF 1.2 at 65ml/hr Labs/Tests POC glu 163 7/15 Na 144 Pertinent Medications Lantus Height 6 ft 2 in Weight 118.5 kg [place] Body Weight (kg) 86.36 BMI 33.5 Weight change and time frame Wt change noted Subjective/Other Information Vital running at 65 ml/hr and pt is tolerating TF. Percent of energy/protein needs met: 93%/68% Burn Absent Trauma Absent Current % PO Negligible Minimum of two criteria No physical signs of malnutrition #1 Nutrition Diagnosis Inadequate oral intake Diagnosis Progress(for reassessment Continues documentation) Is patient on ventilator? Yes Is Patient Ambulatory and/or Out of Bed No REE-([facility]-confined to bed) 2487.948 Kcal/Kg value to use for calculation 17 Approximate Energy Requirements Using 2015 kcal/Kg Calculation Used for Recommendations Kcal/kg Additional Notes Protein: 172g (>/=2g/kg using IBW 86kg) Fluid 1ml/kcal Nutrition Intervention Change Diet Order: TF Nutrition Support: Vital AF 1.2 at 65ml/hr Flush 250ml q4h for hypernatremia Flush 100ml q4h Kcal 1,872 Protein (gm) 117 Fluid (mL) 1,265 Goal #1 TF tolerance Goal #2 Meet at least 75% of energy and protein needs Anticipated Discharge Needs: unable to determine at this time Follow-Up By: 01/25/20 Additional Comments Follow for TF tolerance and Na levels
[2020-01-20] MEDS: POLYETHYLENE GLYCOL 3350 17 GM POWDER PO SCH (23:22)
[2020-01-21] MEDS: INSULIN LISPRO 100 UNIT/ML SUB-Q SCH ×4 (00:53→19:06)
[2020-01-21] MEDS: fentaNYL DRIP Premix 2,000 MCG/100 ML BAG IV SCH ×4 (05:07→22:21)
[2020-01-21] MEDS: IPRATROPIUM/ALBUTEROL SULFATE 3 ML AMPUL.NEB IH SCH ×3 (07:29→20:06)
[2020-01-21] MEDS: DOCUSATE SODIUM 100 MG/10 ML ORAL LIQD PO SCH ×2 (10:02→22:21)
[2020-01-21] MEDS: FAMOTIDINE 20 MG TAB PO SCH ×2 (10:02→22:19)
[2020-01-21] MEDS: INSULIN GLARGINE 100 UNITS/ML SUB-Q SCH ×2 (10:03→22:20)
[2020-01-21] MEDS: LEVOTHYROXINE 88 MCG TAB PO SCH (10:07)
--- NOTE | 2020-01-21 11:03 | Progress Note ---
Assessment and Plan Acute Hypoxemic-hypercapnic Respiratory Failure s/p trach Severe Sepsis with Shock Bilateral Pneumonia Bradycardia JAGDEEP secondary to ATN, non oliguric Hypernatremia, resolved Morbid Obesity H/O CHF JOE -Trach care, airway clearance, secretion management -Wean supplemental oxygen to keep O2 sats >90% -Daily SAT and SBT assessment as tolerated -CXR and ABG now -Continue to monitor off antibiotics, trend temperature curve and WCC -Continue with bowel regimen - Continue care as below otherwise -Discharge planning- LTACH for chronic weaning - accuchecks with glycemic control per SSI (While critically ill target blood glucose of 140-180 mg/dL; avoid hypoglycemia) - sedation for target RASS 0 to -1 - continue to wean supplemental oxygen for target O2 sat's > 92% - continue bronchodilators with pulmonary hygiene per RT - VAP bundle addressed - lung protective strategies - wean per pulmonary driven protocols otherwise - continue to avoid benzodiazepines, reduce the possibility of delirium - prn analgesia per CPOT score - Maintenance of sleep-wake cycle - continue enteral nutritional support at goal rate as tolerated - G.I. & VTE prophylaxis - PT/OT/ROM exercises - continue mobility protocols for pressure ulcer prophylaxis - repeat COVID-19 test negative - continue aspiration precautions - continue other care per attending / other consultants .... Re-evaluate in am & prn CONDITION: CRITICAL PROGNOSIS: FAIR CODE STATUS: FULL CODE The high probability of a clinically significant, sudden or life-threatening deterioration of the [respiratory, cardiovascular, GI & neurologic] system(s) required my full and direct attention, intervention and personal management. The aggregate critical care time was [31] minutes without overlap. Time includes spent on; [x] Data Review and interpretation [x] Patient assessment and monitoring of vital signs [x] Documentation [x] Medication orders and management Subjective Date of service: 01/21/20 Principal diagnosis: Ac. Hypoxemic Resp Failure; Septic Shock; Magdiel. PNA; PUI COVID-19; CHF; JOE Interval history: Patient is seen today for: Acute Hypoxemic Respiratory Failure; Severe Sepsis with Shock; Bilateral Pneumonia; PUI COVID-19; Morbid Obesity; H/O CHF; JOE Seen and examined at bedside; 24hour events reviewed; nursing and respiratory care staff consulted; no adverse overnight events reported to me; resting peacefully in bed; remains on MVS; No fevers, s/p trach and PEG placement Objective Vital Signs - 12hr 01/20/20 01/20/20 01/20/20 23:15 23:30 23:31 Temperature Pulse Rate 84 82 Pulse Rate [ 82 From Monitor] Respiratory 14 14 14 Rate Blood Pressure 104/56 104/56 O2 Sat by Pulse 94 95 94 Oximetry O2 Sat by Pulse Oximetry [ Assessment] 01/20/20 01/20/20 01/20/20 23:35 23:45 23:46 Temperature 99.8 F H Pulse Rate 85 82 Pulse Rate [ From Monitor] Respiratory 14 Rate Blood Pressure 142/58 117/66 O2 Sat by Pulse 95 95 Oximetry O2 Sat by Pulse Oximetry [ Assessment] 01/21/20 01/21/20 01/21/20 00:00 00:15 00:30 Temperature Pulse Rate 82 85 91 H Pulse Rate [ From Monitor] Respiratory 14 14 14 Rate Blood Pressure 137/76 128/69 114/62 O2 Sat by Pulse 94 94 93 Oximetry O2 Sat by Pulse Oximetry [ Assessment] 01/21/20 01/21/20 01/21/20 00:45 01:00 01:15 Temperature Pulse Rate 90 87 88 Pulse Rate [ From Monitor] Respiratory 14 14 14 Rate Blood Pressure 119/60 120/66 113/60 O2 Sat by Pulse 93 92 93 Oximetry O2 Sat by Pulse Oximetry [ Assessment] 01/21/20 01/21/20 01/21/20 01:30 01:45 02:00 Temperature Pulse Rate 87 88 88 Pulse Rate [ From Monitor] Respiratory 14 14 14 Rate Blood Pressure 109/55 107/56 109/57 O2 Sat by Pulse 93 92 92 Oximetry O2 Sat by Pulse Oximetry [ Assessment] 01/21/20 01/21/20 01/21/20 02:15 02:30 02:45 Temperature Pulse Rate 83 87 87 Pulse Rate [ From Monitor] Respiratory 14 14 14 Rate Blood Pressure 115/58 112/57 111/58 O2 Sat by Pulse 92 92 93 Oximetry O2 Sat by Pulse Oximetry [ Assessment] 01/21/20 01/21/20 01/21/20 03:00 03:10 03:15 Temperature Pulse Rate 81 85 87 Pulse Rate [ From Monitor] Respiratory 14 14 Rate Blood Pressure 110/62 135/74 110/53 O2 Sat by Pulse 91 95 93 Oximetry O2 Sat by Pulse Oximetry [ Assessment] 01/21/20 01/21/2020 03:30 03:45 04:00 Temperature 100.4 F H Pulse Rate 87 88 87 Pulse Rate [ From Monitor] Respiratory 14 14 14 Rate Blood Pressure 107/56 107/53 106/55 O2 Sat by Pulse 92 93 93 Oximetry O2 Sat by Pulse Oximetry [ Assessment] 01/21/20 01/21/20 01/21/20 04:15 04:30 04:45 Temperature Pulse Rate 88 90 84 Pulse Rate [ From Monitor] Respiratory 14 14 14 Rate Blood Pressure 105/55 105/55 107/55 O2 Sat by Pulse 92 93 93 Oximetry O2 Sat by Pulse Oximetry [ Assessment] 01/21/20 01/21/20 01/21/20 05:00 05:15 05:30 Temperature Pulse Rate 88 87 88 Pulse Rate [ From Monitor] Respiratory 14 15 14 Rate Blood Pressure 112/64 115/60 118/58 O2 Sat by Pulse 93 93 94 Oximetry O2 Sat by Pulse Oximetry [ Assessment] 01/21/20 01/21/20 01/21/20 05:45 06:00 06:15 Temperature Pulse Rate 93 H 90 92 H Pulse Rate [ From Monitor] Respiratory 14 14 15 Rate Blood Pressure 115/59 111/59 118/63 O2 Sat by Pulse 94 93 93 Oximetry O2 Sat by Pulse Oximetry [ Assessment] 01/21/20 01/21/20 01/21/20 06:30 06:45 07:00 Temperature Pulse Rate 86 92 H 91 H Pulse Rate [ From Monitor] Respiratory 14 14 14 Rate Blood Pressure 107/56 117/62 113/58 O2 Sat by Pulse 93 93 93 Oximetry O2 Sat by Pulse Oximetry [ Assessment] 01/21/20 01/21/20 01/21/20 07:15 07:31 07:45 Temperature Pulse Rate 91 H 106 H 89 Pulse Rate [ From Monitor] Respiratory 14 18 14 Rate Blood Pressure 119/65 133/91 127/48 O2 Sat by Pulse 93 92 94 Oximetry O2 Sat by Pulse Oximetry [ Assessment] 01/21/20 08:00 Temperature Pulse Rate 85 Pulse Rate [ From Monitor] Respiratory 14 Rate Blood Pressure 132/63 O2 Sat by Pulse 94 Oximetry O2 Sat by Pulse 96 Oximetry [ Assessment] Constitutional: no acute distress, other (elderly obese AAM with normal resp effort, s/p trach to MVS) Eyes: non-icteric ENT: oropharynx moist, other (s/p trach) Neck: supple, no lymphadenopathy, no JVD Effort: normal Ascultation: Bilateral: diminished breath sounds, rhonchi, other (diminished bibasilar air entry) Percussion: Bilateral: not dull Cardiovascular: regular rate and rhythm (Bradycardia), other (S1,S2) Gastrointestinal: normoactive bowel sounds, soft, non-tender, other (protuber ant, s/p PEG) Integumentary: rash (stasis dermatyitis) Extremities: no cyanosis, pink and warm, pulses normal, no ischemia or petechiae, edema (trace, chronic hypertrophic dry skin) Neurologic: pupils equal and round, other (sedated but responds to tactile and verbal stimuli with eye opening and tracking) Psychiatric: other (unable to assess-sedated) CBC and BMP: 01/19/20 05:45 01/19/20 05:45 ABG, PT/INR, D-dimer: ABG ABG pH 7.223 pH Units (7.350-7.450) L 01/13/20 15:10 ABG pCO2 82.3 mm Hg 01/13/20 15:10 ABG pO2 81.4 mm Hg (80.0-90.0) 01/13/20 15:10 ABG O2 Saturation 94.7 % (95.0-99.0) L 01/13/20 15:10 PT/INR, D-dimer PT 13.3 Sec. (12.2-14.9) 01/18/20 04:45 INR 1.03 (0.87-1.13) 01/18/20 04:45 D-Dimer 534.45 ng/mlDDU (0-234) H 12/18/19 14:45 Abnormal lab findings: Abnormal Labs 12/18/19 12/18/19 12/18/19 12:23 14:45 14:45 WBC RBC Hgb 10.4 L Hct 35.2 L MCV MCH 25 L MCHC 30 L RDW 18.8 H Plt Count Lymph % (Auto) [place] % (Auto) 11.6 H Eos % (Auto) 4.8 H Baso % (Auto) Lymph # [place] # 1.0 H Eos # Baso # Seg Neutrophils % Monocytes % (Manual) Monocytes # (Manual) D-Dimer ABG pH ABG pO2 ABG HCO3 ABG O2 Saturation ABG Base Excess ABG Hemoglobin Oxyhemoglobin Sodium Potassium Chloride Carbon Dioxide BUN Creatinine Glucose POC Glucose 328 H Lactic Acid Calcium Magnesium AST ALT Lactate Dehydrogenase Total Creatine Kinase 40 L C-Reactive Protein Total Protein Albumin Free T4 Urine WBC (Auto) Urine Total Protein Digoxin Salicylates Acetaminophen 12/18/19 12/18/19 12/18/19 14:45 14:45 14:45 WBC RBC Hgb Hct MCV MCH MCHC RDW Plt Count Lymph % (Auto) [place] % (Auto) Eos % (Auto) Baso % (Auto) Lymph # [place] # Eos # Baso # Seg Neutrophils % Monocytes % (Manual) Monocytes # (Manual) D-Dimer 534.45 H ABG pH ABG pO2 ABG HCO3 ABG O2 Saturation ABG Base Excess ABG Hemoglobin Oxyhemoglobin Sodium 156 H Potassium Chloride 112.3 H Carbon Dioxide 31 H BUN 32 H Creatinine Glucose 328 H POC Glucose Lactic Acid Calcium Magnesium AST ALT Lactate Dehydrogenase 235 H Total Creatine Kinase C-Reactive Protein 8.50 H Total Protein Albumin 3.6 L Free T4 Urine WBC (Auto) Urine Total Protein Digoxin 0.3 L Salicylates < 0.3 L Acetaminophen 12/18/19 12/18/19 12/18/19 14:45 14:45 16:00 WBC RBC Hgb Hct MCV MCH MCHC RDW Plt Count Lymph % (Auto) [place] % (Auto) Eos % (Auto) Baso % (Auto) Lymph # [place] # Eos # Baso # Seg Neutrophils % Monocytes % (Manual) Monocytes # (Manual) D-Dimer ABG pH ABG pO2 69.8 L ABG HCO3 31.8 H ABG O2 Saturation ABG Base Excess 5.4 H ABG Hemoglobin 10.0 L Oxyhemoglobin 92.9 L Sodium Potassium Chloride Carbon Dioxide BUN Creatinine Glucose 314 H POC Glucose Lactic Acid Calcium Magnesium AST ALT Lactate Dehydrogenase 236 H Total Creatine Kinase C-Reactive Protein 8.40 H Total Protein Albumin Free T4 Urine WBC (Auto) Urine Total Protein Digoxin Salicylates Acetaminophen < 5.0 L 12/18/19 12/18/19 12/18/19 16:35 18:30 22:56 WBC RBC Hgb Hct MCV MCH MCHC RDW Plt Count Lymph % (Auto) [place] % (Auto) Eos % (Auto) Baso % (Auto) Lymph # [place] # Eos # Baso # Seg Neutrophils % Monocytes % (Manual) Monocytes # (Manual) D-Dimer ABG pH ABG pO2 ABG HCO3 ABG O2 Saturation ABG Base Excess ABG Hemoglobin Oxyhemoglobin Sodium Potassium Chloride Carbon Dioxide BUN Creatinine Glucose POC Glucose 310 H 353 H Lactic Acid 2.50 H* Calcium Magnesium AST ALT Lactate Dehydrogenase Total Creatine Kinase C-Reactive Protein Total Protein Albumin Free T4 Urine WBC (Auto) Urine Total Protein Digoxin Salicylates Acetaminophen 12/19/19 12/19/19 12/19/19 04:13 04:13 06:00 WBC RBC Hgb 10.0 L Hct 34.2 L MCV MCH 25 L MCHC 29 L RDW 19.0 H Plt Count Lymph % (Auto) [place] % (Auto) 10.1 H Eos % (Auto) Baso % (Auto) Lymph # [place] # 1.1 H Eos # Baso # Seg Neutrophils % 71.8 H Monocytes % (Manual) Monocytes # (Manual) D-Dimer ABG pH ABG pO2 186.5 H ABG HCO3 27.8 H ABG O2 Saturation 99.1 H ABG Base Excess ABG Hemoglobin 10.4 L Oxyhemoglobin Sodium 157 H Potassium Chloride 119.1 H Carbon Dioxide BUN 26 H Creatinine Glucose 302 H POC Glucose Lactic Acid Calcium 7.9 L Magnesium AST 85 H ALT 61 H Lactate Dehydrogenase Total Creatine Kinase C-Reactive Protein Total Protein Albumin 3.0 L Free T4 Urine WBC (Auto) Urine Total Protein Digoxin Salicylates Acetaminophen 12/19/19 12/19/19 12/19/19 08:30 11:55 16:50 WBC RBC Hgb Hct MCV MCH MCHC RDW Plt Count Lymph % (Auto) [place] % (Auto) Eos % (Auto) Baso % (Auto) Lymph # [place] # Eos # Baso # Seg Neutrophils % Monocytes % (Manual) Monocytes # (Manual) D-Dimer ABG pH ABG pO2 ABG HCO3 ABG O2 Saturation ABG Base Excess ABG Hemoglobin Oxyhemoglobin Sodium Potassium Chloride Carbon Dioxide BUN Creatinine Glucose POC Glucose 264 H 251 H Lactic Acid Calcium Magnesium AST ALT Lactate Dehydrogenase Total Creatine Kinase C-Reactive Protein Total Protein Albumin Free T4 Urine WBC (Auto) 7.0 H Urine Total Protein Digoxin Salicylates Acetaminophen 12/19/19 12/19/19 12/20/19 17:41 23:42 03:35 WBC RBC Hgb Hct MCV MCH MCHC RDW Plt Count Lymph % (Auto) [place] % (Auto) Eos % (Auto) Baso % (Auto) Lymph # [place] # Eos # Baso # Seg Neutrophils % Monocytes % (Manual) Monocytes # (Manual) D-Dimer ABG pH ABG pO2 ABG HCO3 27.7 H ABG O2 Saturation ABG Base Excess ABG Hemoglobin 11.6 L Oxyhemoglobin 94.9 L Sodium Potassium Chloride Carbon Dioxide BUN Creatinine Glucose POC Glucose 180 H 205 H Lactic Acid Calcium Magnesium AST ALT Lactate Dehydrogenase Total Creatine Kinase C-Reactive Protein Total Protein Albumin Free T4 Urine WBC (Auto) Urine Total Protein Digoxin Salicylates Acetaminophen 12/20/19 12/20/19 12/20/19 04:45 04:45 05:27 WBC RBC Hgb 9.4 L Hct 31.4 L MCV MCH 25 L MCHC 30 L RDW 19.4 H Plt Count Lymph % (Auto) [place] % (Auto) 10.2 H Eos % (Auto) 6.0 H Baso % (Auto) Lymph # 0.9 L [place] # Eos # Baso # Seg Neutrophils % Monocytes % (Manual) Monocytes # (Manual) D-Dimer ABG pH ABG pO2 ABG HCO3 ABG O2 Saturation ABG Base Excess ABG Hemoglobin Oxyhemoglobin Sodium 153 H Potassium Chloride 114.6 H Carbon Dioxide BUN Creatinine Glucose 170 H POC Glucose 188 H Lactic Acid Calcium 7.9 L Magnesium AST ALT Lactate Dehydrogenase Total Creatine Kinase C-Reactive Protein Total Protein Albumin Free T4 Urine WBC (Auto) Urine Total Protein Digoxin Salicylates Acetaminophen 12/20/19 12/20/19 12/21/19 12:26 18:20 00:20 WBC RBC Hgb Hct MCV MCH MCHC RDW Plt Count Lymph % (Auto) [place] % (Auto) Eos % (Auto) Baso % (Auto) Lymph # [place] # Eos # Baso # Seg Neutrophils % Monocytes % (Manual) Monocytes # (Manual) D-Dimer ABG pH ABG pO2 ABG HCO3 ABG O2 Saturation ABG Base Excess ABG Hemoglobin Oxyhemoglobin Sodium Potassium Chloride Carbon Dioxide BUN Creatinine Glucose POC Glucose 200 H 263 H 218 H Lactic Acid Calcium Magnesium AST ALT Lactate Dehydrogenase Total Creatine Kinase C-Reactive Protein Total Protein Albumin Free T4 Urine WBC (Auto) Urine Total Protein Digoxin Salicylates Acetaminophen 12/21/19 12/21/19 12/21/19 04:38 05:26 12:35 WBC RBC Hgb Hct MCV MCH MCHC RDW Plt Count Lymph % (Auto) [place] % (Auto) Eos % (Auto) Baso % (Auto) Lymph # [place] # Eos # Baso # Seg Neutrophils % Monocytes % (Manual) Monocytes # (Manual) D-Dimer ABG pH ABG pO2 ABG HCO3 ABG O2 Saturation ABG Base Excess ABG Hemoglobin Oxyhemoglobin Sodium 149 H Potassium 3.5 L Chloride 110.5 H Carbon Dioxide BUN Creatinine Glucose 158 H POC Glucose 193 H 193 H Lactic Acid Calcium Magnesium AST ALT Lactate Dehydrogenase Total Creatine Kinase C-Reactive Protein Total Protein Albumin Free T4 Urine WBC (Auto) Urine Total Protein Digoxin Salicylates Acetaminophen 12/21/19 12/22/19 12/22/19 18:29 00:03 05:15 WBC RBC Hgb 10.3 L Hct 34.7 L MCV MCH 25 L MCHC 30 L RDW 19.4 H Plt Count Lymph % (Auto) 9.0 L [place] % (Auto) 12.3 H Eos % (Auto) 5.0 H Baso % (Auto) Lymph # 0.5 L [place] # Eos # Baso # Seg Neutrophils % 73.2 H Monocytes % (Manual) Monocytes # (Manual) D-Dimer ABG pH ABG pO2 ABG HCO3 ABG O2 Saturation ABG Base Excess ABG Hemoglobin Oxyhemoglobin Sodium Potassium Chloride Carbon Dioxide BUN Creatinine Glucose POC Glucose 186 H 143 H Lactic Acid Calcium Magnesium AST ALT Lactate Dehydrogenase Total Creatine Kinase C-Reactive Protein Total Protein Albumin Free T4 Urine WBC (Auto) Urine Total Protein Digoxin Salicylates Acetaminophen 12/22/19 12/22/19 12/22/19 05:15 06:02 12:13 WBC RBC Hgb Hct MCV MCH MCHC RDW Plt Count Lymph % (Auto) [place] % (Auto) Eos % (Auto) Baso % (Auto) Lymph # [place] # Eos # Baso # Seg Neutrophils % Monocytes % (Manual) Monocytes # (Manual) D-Dimer ABG pH ABG pO2 ABG HCO3 ABG O2 Saturation ABG Base Excess ABG Hemoglobin Oxyhemoglobin Sodium 152 H Potassium Chloride 113.5 H Carbon Dioxide BUN Creatinine Glucose 126 H POC Glucose 144 H 159 H Lactic Acid Calcium Magnesium AST ALT Lactate Dehydrogenase Total Creatine Kinase C-Reactive Protein Total Protein Albumin Free T4 Urine WBC (Auto) Urine Total Protein Digoxin Salicylates Acetaminophen 12/22/19 12/22/19 12/23/19 18:03 23:50 05:27 WBC RBC Hgb Hct MCV MCH MCHC RDW Plt Count Lymph % (Auto) [place] % (Auto) Eos % (Auto) Baso % (Auto) Lymph # [place] # Eos # Baso # Seg Neutrophils % Monocytes % (Manual) Monocytes # (Manual) D-Dimer ABG pH ABG pO2 ABG HCO3 ABG O2 Saturation ABG Base Excess ABG Hemoglobin Oxyhemoglobin Sodium Potassium Chloride Carbon Dioxide BUN Creatinine Glucose POC Glucose 140 H 227 H 185 H Lactic Acid Calcium Magnesium AST ALT Lactate Dehydrogenase Total Creatine Kinase C-Reactive Protein Total Protein Albumin Free T4 Urine WBC (Auto) Urine Total Protein Digoxin Salicylates Acetaminophen 12/23/19 12/23/19 12/23/19 12:13 16:05 16:40 WBC RBC Hgb Hct MCV MCH MCHC RDW Plt Count Lymph % (Auto) [place] % (Auto) Eos % (Auto) Baso % (Auto) Lymph # [place] # Eos # Baso # Seg Neutrophils % Monocytes % (Manual) Monocytes # (Manual) D-Dimer ABG pH 7.259 L ABG pO2 76.2 L ABG HCO3 30.6 H ABG O2 Saturation 94.6 L ABG Base Excess ABG Hemoglobin 11.5 L Oxyhemoglobin 92.2 L Sodium 163 H* D Potassium 3.4 L Chloride 120.1 H Carbon Dioxide BUN Creatinine Glucose 162 H POC Glucose 132 H Lactic Acid Calcium Magnesium AST ALT Lactate Dehydrogenase Total Creatine Kinase C-Reactive Protein Total Protein Albumin Free T4 Urine WBC (Auto) Urine Total Protein Digoxin Salicylates Acetaminophen 12/23/19 12/24/19 12/24/19 17:53 00:48 04:20 WBC RBC Hgb Hct MCV MCH MCHC RDW Plt Count Lymph % (Auto) [place] % (Auto) Eos % (Auto) Baso % (Auto) Lymph # [place] # Eos # Baso # Seg Neutrophils % Monocytes % (Manual) Monocytes # (Manual) D-Dimer ABG pH ABG pO2 ABG HCO3 30.4 H ABG O2 Saturation ABG Base Excess 3.9 H ABG Hemoglobin 10.3 L Oxyhemoglobin 94.4 L Sodium Potassium Chloride Carbon Dioxide BUN Creatinine Glucose POC Glucose 180 H 174 H Lactic Acid Calcium Magnesium AST ALT Lactate Dehydrogenase Total Creatine Kinase C-Reactive Protein Total Protein Albumin Free T4 Urine WBC (Auto) Urine Total Protein Digoxin Salicylates Acetaminophen 12/24/19 12/24/19 12/24/19 04:53 04:53 11:50 WBC RBC Hgb 9.7 L Hct 33.2 L MCV MCH 25 L MCHC 29 L RDW 20.1 H Plt Count Lymph % (Auto) [place] % (Auto) Eos % (Auto) Baso % (Auto) Lymph # [place] # Eos # Baso # Seg Neutrophils % Monocytes % (Manual) 15.0 H Monocytes # (Manual) 0.9 H D-Dimer ABG pH ABG pO2 ABG HCO3 ABG O2 Saturation ABG Base Excess ABG Hemoglobin Oxyhemoglobin Sodium 163 H* Potassium 3.2 L Chloride 122.6 H Carbon Dioxide BUN Creatinine Glucose 168 H POC Glucose 190 H Lactic Acid Calcium Magnesium AST ALT Lactate Dehydrogenase Total Creatine Kinase C-Reactive Protein Total Protein Albumin Free T4 Urine WBC (Auto) Urine Total Protein Digoxin Salicylates Acetaminophen 12/24/19 12/24/19 12/24/19 15:00 16:28 21:15 WBC RBC Hgb Hct MCV MCH MCHC RDW Plt Count Lymph % (Auto) [place] % (Auto) Eos % (Auto) Baso % (Auto) Lymph # [place] # Eos # Baso # Seg Neutrophils % Monocytes % (Manual) Monocytes # (Manual) D-Dimer ABG pH ABG pO2 ABG HCO3 ABG O2 Saturation ABG Base Excess ABG Hemoglobin Oxyhemoglobin Sodium 165 H* D 163 H* Potassium Chloride Carbon Dioxide BUN Creatinine Glucose POC Glucose 160 H Lactic Acid Calcium Magnesium AST ALT Lactate Dehydrogenase Total Creatine Kinase C-Reactive Protein Total Protein Albumin Free T4 Urine WBC (Auto) Urine Total Protein Digoxin Salicylates Acetaminophen 12/25/19 12/25/19 12/25/19 00:31 05:38 05:46 WBC RBC Hgb 9.7 L Hct 32.5 L MCV MCH 25 L MCHC 30 L RDW 19.4 H Plt Count Lymph % (Auto) [place] % (Auto) Eos % (Auto) Baso % (Auto) Lymph # [place] # Eos # Baso # Seg Neutrophils % Monocytes % (Manual) Monocytes # (Manual) D-Dimer ABG pH ABG pO2 ABG HCO3 ABG O2 Saturation ABG Base Excess ABG Hemoglobin Oxyhemoglobin Sodium Potassium Chloride Carbon Dioxide BUN Creatinine Glucose POC Glucose 182 H 194 H Lactic Acid Calcium Magnesium AST ALT Lactate Dehydrogenase Total Creatine Kinase C-Reactive Protein Total Protein Albumin Free T4 Urine WBC (Auto) Urine Total Protein Digoxin Salicylates Acetaminophen 12/25/19 12/25/19 12/25/19 05:46 11:35 11:38 WBC RBC Hgb Hct MCV MCH MCHC RDW Plt Count Lymph % (Auto) [place] % (Auto) Eos % (Auto) Baso % (Auto) Lymph # [place] # Eos # Baso # Seg Neutrophils % Monocytes % (Manual) Monocytes # (Manual) D-Dimer ABG pH 7.330 L ABG pO2 65.7 L ABG HCO3 32.6 H ABG O2 Saturation 92.5 L ABG Base Excess 5.3 H ABG Hemoglobin 10.4 L Oxyhemoglobin 90.0 L Sodium 166 H* Potassium 2.9 L* Chloride 124.5 H Carbon Dioxide BUN Creatinine Glucose 190 H POC Glucose 192 H Lactic Acid Calcium Magnesium AST ALT Lactate Dehydrogenase Total Creatine Kinase C-Reactive Protein Total Protein Albumin Free T4 Urine WBC (Auto) Urine Total Protein Digoxin Salicylates Acetaminophen 12/25/19 12/25/19 12/25/19 13:01 16:45 17:20 WBC RBC Hgb Hct MCV MCH MCHC RDW Plt Count Lymph % (Auto) [place] % (Auto) Eos % (Auto) Baso % (Auto) Lymph # [place] # Eos # Baso # Seg Neutrophils % Monocytes % (Manual) Monocytes # (Manual) D-Dimer ABG pH 7.296 L ABG pO2 101.5 H ABG HCO3 33.2 H ABG O2 Saturation ABG Base Excess 5.3 H ABG Hemoglobin 9.6 L Oxyhemoglobin 94.6 L Sodium 174 H* Potassium Chloride Carbon Dioxide BUN Creatinine Glucose POC Glucose Lactic Acid Calcium Magnesium AST ALT Lactate Dehydrogenase Total Creatine Kinase C-Reactive Protein Total Protein Albumin Free T4 Urine WBC (Auto) Urine Total Protein < 4 L Digoxin Salicylates Acetaminophen 12/25/19 12/25/19 12/26/19 17:48 18:50 00:43 WBC RBC Hgb Hct MCV MCH MCHC RDW Plt Count Lymph % (Auto) [place] % (Auto) Eos % (Auto) Baso % (Auto) Lymph # [place] # Eos # Baso # Seg Neutrophils % Monocytes % (Manual) Monocytes # (Manual) D-Dimer ABG pH ABG pO2 ABG HCO3 ABG O2 Saturation ABG Base Excess ABG Hemoglobin Oxyhemoglobin Sodium 166 H* 164 H* Potassium Chloride 127.3 H Carbon Dioxide BUN Creatinine Glucose 220 H POC Glucose 252 H Lactic Acid Calcium Magnesium AST ALT Lactate Dehydrogenase Total Creatine Kinase C-Reactive Protein Total Protein Albumin Free T4 Urine WBC (Auto) Urine Total Protein Digoxin Salicylates Acetaminophen 12/26/19 12/26/19 12/26/19 05:31 08:07 08:07 WBC 4.3 L RBC Hgb 9.6 L Hct 32.1 L MCV MCH 26 L MCHC 30 L RDW 20.5 H Plt Count Lymph % (Auto) [place] % (Auto) Eos % (Auto) Baso % (Auto) Lymph # [place] # Eos # Baso # Seg Neutrophils % Monocytes % (Manual) Monocytes # (Manual) D-Dimer ABG pH ABG pO2 ABG HCO3 ABG O2 Saturation ABG Base Excess ABG Hemoglobin Oxyhemoglobin Sodium 162 H* Potassium Chloride 122.1 H Carbon Dioxide BUN Creatinine Glucose 247 H POC Glucose 187 H Lactic Acid Calcium Magnesium AST ALT Lactate Dehydrogenase Total Creatine Kinase C-Reactive Protein Total Protein Albumin Free T4 Urine WBC (Auto) Urine Total Protein Digoxin Salicylates Acetaminophen 12/26/19 12/26/19 12/26/19 08:07 12:20 16:25 WBC RBC Hgb Hct MCV MCH MCHC RDW Plt Count Lymph % (Auto) [place] % (Auto) Eos % (Auto) Baso % (Auto) Lymph # [place] # Eos # Baso # Seg Neutrophils % Monocytes % (Manual) Monocytes # (Manual) D-Dimer ABG pH 7.290 L ABG pO2 73.2 L ABG HCO3 33.2 H ABG O2 Saturation 94.9 L ABG Base Excess 5.2 H ABG Hemoglobin 10.0 L Oxyhemoglobin 92.5 L Sodium 159 H Potassium Chloride Carbon Dioxide BUN Creatinine Glucose POC Glucose 234 H Lactic Acid Calcium Magnesium AST ALT Lactate Dehydrogenase Total Creatine Kinase C-Reactive Protein Total Protein Albumin Free T4 Urine WBC (Auto) Urine Total Protein Digoxin Salicylates Acetaminophen 12/26/19 12/26/19 12/26/19 17:33 22:35 23:30 WBC RBC Hgb Hct MCV MCH MCHC RDW Plt Count Lymph % (Auto) [place] % (Auto) Eos % (Auto) Baso % (Auto) Lymph # [place] # Eos # Baso # Seg Neutrophils % Monocytes % (Manual) Monocytes # (Manual) D-Dimer ABG pH ABG pO2 ABG HCO3 ABG O2 Saturation ABG Base Excess ABG Hemoglobin Oxyhemoglobin Sodium Potassium Chloride Carbon Dioxide BUN Creatinine Glucose POC Glucose 244 H 208 H 287 H Lactic Acid Calcium Magnesium AST ALT Lactate Dehydrogenase Total Creatine Kinase C-Reactive Protein Total Protein Albumin Free T4 Urine WBC (Auto) Urine Total Protein Digoxin Salicylates Acetaminophen 12/27/19 12/27/19 12/27/19 03:48 03:48 03:48 WBC RBC Hgb 10.1 L Hct 35.4 L MCV MCH 25 L MCHC 29 L RDW 20.1 H Plt Count Lymph % (Auto) [place] % (Auto) Eos % (Auto) Baso % (Auto) Lymph # [place] # Eos # Baso # Seg Neutrophils % Monocytes % (Manual) Monocytes # (Manual) D-Dimer ABG pH ABG pO2 ABG HCO3 ABG O2 Saturation ABG Base Excess ABG Hemoglobin Oxyhemoglobin Sodium 160 H Potassium Chloride 118.8 H Carbon Dioxide 33 H BUN Creatinine Glucose 217 H POC Glucose Lactic Acid Calcium Magnesium 2.70 H AST ALT Lactate Dehydrogenase Total Creatine Kinase C-Reactive Protein Total Protein Albumin Free T4 Urine WBC (Auto) Urine Total Protein Digoxin Salicylates Acetaminophen 12/27/19 12/27/19 12/27/19 05:50 11:58 16:05 WBC RBC Hgb Hct MCV MCH MCHC RDW Plt Count Lymph % (Auto) [place] % (Auto) Eos % (Auto) Baso % (Auto) Lymph # [place] # Eos # Baso # Seg Neutrophils % Monocytes % (Manual) Monocytes # (Manual) D-Dimer ABG pH 7.180 L* ABG pO2 73.6 L ABG HCO3 34.8 H ABG O2 Saturation 92.7 L ABG Base Excess 3.8 H ABG Hemoglobin 12.0 L Oxyhemoglobin 90.2 L Sodium Potassium Chloride Carbon Dioxide BUN Creatinine Glucose POC Glucose 224 H 218 H Lactic Acid Calcium Magnesium AST ALT Lactate Dehydrogenase Total Creatine Kinase C-Reactive Protein Total Protein Albumin Free T4 Urine WBC (Auto) Urine Total Protein Digoxin Salicylates Acetaminophen 12/27/19 12/27/19 12/27/19 18:05 19:50 21:53 WBC RBC Hgb Hct MCV MCH MCHC RDW Plt Count Lymph % (Auto) [place] % (Auto) Eos % (Auto) Baso % (Auto) Lymph # [place] # Eos # Baso # Seg Neutrophils % Monocytes % (Manual) Monocytes # (Manual) D-Dimer ABG pH 7.328 L ABG pO2 49.9 L ABG HCO3 33.3 H ABG O2 Saturation 87.1 L ABG Base Excess 5.7 H ABG Hemoglobin 11.2 L Oxyhemoglobin 84.8 L Sodium Potassium Chloride Carbon Dioxide BUN Creatinine Glucose POC Glucose 214 H 178 H Lactic Acid Calcium Magnesium AST ALT Lactate Dehydrogenase Total Creatine Kinase C-Reactive Protein Total Protein Albumin Free T4 Urine WBC (Auto) Urine Total Protein Digoxin Salicylates Acetaminophen 12/28/19 12/28/19 12/28/19 00:42 04:37 04:37 WBC RBC Hgb 9.8 L Hct 33.5 L MCV MCH 25 L MCHC 29 L RDW 21.1 H Plt Count Lymph % (Auto) [place] % (Auto) Eos % (Auto) Baso % (Auto) Lymph # [place] # Eos # Baso # Seg Neutrophils % Monocytes % (Manual) Monocytes # (Manual) D-Dimer ABG pH ABG pO2 ABG HCO3 ABG O2 Saturation ABG Base Excess ABG Hemoglobin Oxyhemoglobin Sodium 157 H Potassium 3.4 L Chloride 117.5 H Carbon Dioxide BUN Creatinine Glucose 193 H POC Glucose 157 H Lactic Acid Calcium Magnesium AST ALT Lactate Dehydrogenase Total Creatine Kinase C-Reactive Protein Total Protein Albumin Free T4 Urine WBC (Auto) Urine Total Protein Digoxin Salicylates Acetaminophen 12/28/19 12/28/19 12/28/19 04:52 05:19 12:05 WBC RBC Hgb Hct MCV MCH MCHC RDW Plt Count Lymph % (Auto) [place] % (Auto) Eos % (Auto) Baso % (Auto) Lymph # [place] # Eos # Baso # Seg Neutrophils % Monocytes % (Manual) Monocytes # (Manual) D-Dimer ABG pH ABG pO2 51.7 L ABG HCO3 28.7 H ABG O2 Saturation 89.9 L ABG Base Excess 4.1 H ABG Hemoglobin 9.7 L Oxyhemoglobin 87.7 L Sodium Potassium Chloride Carbon Dioxide BUN Creatinine Glucose POC Glucose 202 H 248 H Lactic Acid Calcium Magnesium AST ALT Lactate Dehydrogenase Total Creatine Kinase C-Reactive Protein Total Protein Albumin Free T4 Urine WBC (Auto) Urine Total Protein Digoxin Salicylates Acetaminophen 12/28/19 12/28/19 12/28/19 18:11 21:15 23:22 WBC RBC Hgb Hct MCV MCH MCHC RDW Plt Count Lymph % (Auto) [place] % (Auto) Eos % (Auto) Baso % (Auto) Lymph # [place] # Eos # Baso # Seg Neutrophils % Monocytes % (Manual) Monocytes # (Manual) D-Dimer ABG pH ABG pO2 ABG HCO3 ABG O2 Saturation ABG Base Excess ABG Hemoglobin Oxyhemoglobin Sodium Potassium Chloride Carbon Dioxide BUN Creatinine Glucose POC Glucose 226 H 217 H 227 H Lactic Acid Calcium Magnesium AST ALT Lactate Dehydrogenase Total Creatine Kinase C-Reactive Protein Total Protein Albumin Free T4 Urine WBC (Auto) Urine Total Protein Digoxin Salicylates Acetaminophen 12/29/19 12/29/19 12/29/19 04:09 04:59 04:59 WBC 11.1 H RBC Hgb 9.3 L Hct 31.1 L MCV 81 L MCH 24 L MCHC 30 L RDW 19.9 H Plt Count Lymph % (Auto) [place] % (Auto) Eos % (Auto) Baso % (Auto) Lymph # [place] # Eos # Baso # Seg Neutrophils % Monocytes % (Manual) Monocytes # (Manual) D-Dimer ABG pH 7.473 H ABG pO2 126.1 H ABG HCO3 29.2 H ABG O2 Saturation ABG Base Excess 5.1 H ABG Hemoglobin 8.4 L Oxyhemoglobin Sodium 157 H Potassium 3.2 L Chloride 118.2 H Carbon Dioxide BUN Creatinine 1.7 H Glucose 229 H POC Glucose Lactic Acid Calcium Magnesium AST ALT Lactate Dehydrogenase Total Creatine Kinase C-Reactive Protein Total Protein Albumin Free T4 Urine WBC (Auto) Urine Total Protein Digoxin Salicylates Acetaminophen 12/29/19 12/29/19 12/29/19 05:15 12:13 17:59 WBC RBC Hgb Hct MCV MCH MCHC RDW Plt Count Lymph % (Auto) [place] % (Auto) Eos % (Auto) Baso % (Auto) Lymph # [place] # Eos # Baso # Seg Neutrophils % Monocytes % (Manual) Monocytes # (Manual) D-Dimer ABG pH ABG pO2 ABG HCO3 ABG O2 Saturation ABG Base Excess ABG Hemoglobin Oxyhemoglobin Sodium Potassium Chloride Carbon Dioxide BUN Creatinine Glucose POC Glucose 221 H 392 H 365 H Lactic Acid Calcium Magnesium AST ALT Lactate Dehydrogenase Total Creatine Kinase C-Reactive Protein Total Protein Albumin Free T4 Urine WBC (Auto) Urine Total Protein Digoxin Salicylates Acetaminophen 12/29/19 12/29/19 12/30/19 20:25 23:38 04:45 WBC RBC Hgb Hct MCV MCH MCHC RDW Plt Count Lymph % (Auto) [place] % (Auto) Eos % (Auto) Baso % (Auto) Lymph # [place] # Eos # Baso # Seg Neutrophils % Monocytes % (Manual) Monocytes # (Manual) D-Dimer ABG pH 7.261 L 7.343 L ABG pO2 60.3 L 54.3 L ABG HCO3 32.1 H 30.9 H ABG O2 Saturation 87.6 L 88.3 L ABG Base Excess 3.7 H 4.0 H ABG Hemoglobin 9.7 L 11.6 L Oxyhemoglobin 85.2 L 86.0 L Sodium Potassium Chloride Carbon Dioxide BUN Creatinine Glucose POC Glucose 402 H Lactic Acid Calcium Magnesium AST ALT Lactate Dehydrogenase Total Creatine Kinase C-Reactive Protein Total Protein Albumin Free T4 Urine WBC (Auto) Urine Total Protein Digoxin Salicylates Acetaminophen 12/30/19 12/30/19 12/30/19 05:06 05:06 05:06 WBC 11.7 H RBC Hgb 9.4 L Hct 32.4 L MCV 83 L MCH 24 L MCHC 29 L RDW 20.2 H Plt Count Lymph % (Auto) [place] % (Auto) Eos % (Auto) Baso % (Auto) Lymph # [place] # Eos # Baso # Seg Neutrophils % Monocytes % (Manual) Monocytes # (Manual) D-Dimer ABG pH ABG pO2 ABG HCO3 ABG O2 Saturation ABG Base Excess ABG Hemoglobin Oxyhemoglobin Sodium 159 H Potassium 3.2 L Chloride 120.1 H Carbon Dioxide 31 H BUN Creatinine 1.9 H Glucose 404 H POC Glucose Lactic Acid Calcium Magnesium 2.60 H AST ALT Lactate Dehydrogenase Total Creatine Kinase C-Reactive Protein Total Protein Albumin Free T4 Urine WBC (Auto) Urine Total Protein Digoxin Salicylates Acetaminophen 12/30/19 12/30/19 12/30/19 06:26 12:29 13:44 WBC RBC Hgb Hct MCV MCH MCHC RDW Plt Count Lymph % (Auto) [place] % (Auto) Eos % (Auto) Baso % (Auto) Lymph # [place] # Eos # Baso # Seg Neutrophils % Monocytes % (Manual) Monocytes # (Manual) D-Dimer ABG pH ABG pO2 ABG HCO3 ABG O2 Saturation ABG Base Excess ABG Hemoglobin Oxyhemoglobin Sodium Potassium Chloride Carbon Dioxide BUN Creatinine Glucose POC Glucose 399 H 469 H > 500 H Lactic Acid Calcium Magnesium AST ALT Lactate Dehydrogenase Total Creatine Kinase C-Reactive Protein Total Protein Albumin Free T4 Urine WBC (Auto) Urine Total Protein Digoxin Salicylates Acetaminophen 12/30/19 12/30/19 12/30/19 13:51 16:32 18:05 WBC RBC Hgb Hct MCV MCH MCHC RDW Plt Count Lymph % (Auto) [place] % (Auto) Eos % (Auto) Baso % (Auto) Lymph # [place] # Eos # Baso # Seg Neutrophils % Monocytes % (Manual) Monocytes # (Manual) D-Dimer ABG pH ABG pO2 ABG HCO3 ABG O2 Saturation ABG Base Excess ABG Hemoglobin Oxyhemoglobin Sodium Potassium Chloride Carbon Dioxide BUN Creatinine Glucose POC Glucose > 500 H 445 H 429 H Lactic Acid Calcium Magnesium AST ALT Lactate Dehydrogenase Total Creatine Kinase C-Reactive Protein Total Protein Albumin Free T4 Urine WBC (Auto) Urine Total Protein Digoxin Salicylates Acetaminophen 12/30/19 12/30/19 12/31/19 21:42 Unknown 00:00 WBC RBC Hgb Hct MCV MCH MCHC RDW Plt Count Lymph % (Auto) [place] % (Auto) Eos % (Auto) Baso % (Auto) Lymph # [place] # Eos # Baso # Seg Neutrophils % Monocytes % (Manual) Monocytes # (Manual) D-Dimer ABG pH ABG pO2 ABG HCO3 ABG O2 Saturation ABG Base Excess ABG Hemoglobin Oxyhemoglobin Sodium Potassium Chloride Carbon Dioxide BUN Creatinine Glucose 498 H POC Glucose 371 H 452 H Lactic Acid Calcium Magnesium AST ALT Lactate Dehydrogenase Total Creatine Kinase C-Reactive Protein Total Protein Albumin Free T4 Urine WBC (Auto) Urine Total Protein Digoxin Salicylates Acetaminophen 12/31/19 12/31/19 12/31/19 04:31 05:42 08:01 WBC RBC Hgb Hct MCV MCH MCHC RDW Plt Count Lymph % (Auto) [place] % (Auto) Eos % (Auto) Baso % (Auto) Lymph # [place] # Eos # Baso # Seg Neutrophils % Monocytes % (Manual) Monocytes # (Manual) D-Dimer ABG pH 7.251 L ABG pO2 62.4 L ABG HCO3 31.1 H ABG O2 Saturation 88.7 L ABG Base Excess ABG Hemoglobin 8.7 L Oxyhemoglobin 86.4 L Sodium Potassium Chloride Carbon Dioxide BUN Creatinine Glucose POC Glucose 443 H 443 H Lactic Acid Calcium Magnesium AST ALT Lactate Dehydrogenase Total Creatine Kinase C-Reactive Protein Total Protein Albumin Free T4 Urine WBC (Auto) Urine Total Protein Digoxin Salicylates Acetaminophen 12/31/19 12/31/19 12/31/19 09:08 10:00 11:50 WBC RBC Hgb Hct MCV MCH MCHC RDW Plt Count Lymph % (Auto) [place] % (Auto) Eos % (Auto) Baso % (Auto) Lymph # [place] # Eos # Baso # Seg Neutrophils % Monocytes % (Manual) Monocytes # (Manual) D-Dimer ABG pH 7.325 L ABG pO2 97.2 H ABG HCO3 30.1 H ABG O2 Saturation ABG Base Excess 3.4 H ABG Hemoglobin 8.3 L Oxyhemoglobin 94.7 L Sodium 151 H D Potassium 3.2 L Chloride 113.0 H Carbon Dioxide BUN 23 H Creatinine 1.8 H Glucose 373 H POC Glucose 465 H Lactic Acid Calcium Magnesium AST ALT Lactate Dehydrogenase Total Creatine Kinase C-Reactive Protein Total Protein Albumin Free T4 Urine WBC (Auto) Urine Total Protein Digoxin Salicylates Acetaminophen 12/31/19 12/31/19 12/31/19 12:25 13:33 18:30 WBC RBC Hgb Hct MCV MCH MCHC RDW Plt Count Lymph % (Auto) [place] % (Auto) Eos % (Auto) Baso % (Auto) Lymph # [place] # Eos # Baso # Seg Neutrophils % Monocytes % (Manual) Monocytes # (Manual) D-Dimer ABG pH ABG pO2 ABG HCO3 ABG O2 Saturation ABG Base Excess ABG Hemoglobin Oxyhemoglobin Sodium Potassium Chloride Carbon Dioxide BUN Creatinine Glucose POC Glucose 379 H 311 H 349 H Lactic Acid Calcium Magnesium AST ALT Lactate Dehydrogenase Total Creatine Kinase C-Reactive Protein Total Protein Albumin Free T4 Urine WBC (Auto) Urine Total Protein Digoxin Salicylates Acetaminophen 12/31/19 12/31/19 01/01/20 22:29 23:30 02:58 WBC RBC Hgb Hct MCV MCH MCHC RDW Plt Count Lymph % (Auto) [place] % (Auto) Eos % (Auto) Baso % (Auto) Lymph # [place] # Eos # Baso # Seg Neutrophils % Monocytes % (Manual) Monocytes # (Manual) D-Dimer ABG pH ABG pO2 ABG HCO3 ABG O2 Saturation ABG Base Excess ABG Hemoglobin Oxyhemoglobin Sodium Potassium Chloride Carbon Dioxide BUN Creatinine Glucose POC Glucose 256 H 266 H 248 H Lactic Acid Calcium Magnesium AST ALT Lactate Dehydrogenase Total Creatine Kinase C-Reactive Protein Total Protein Albumin Free T4 Urine WBC (Auto) Urine Total Protein Digoxin Salicylates Acetaminophen 01/01/20 01/01/20 01/01/20 04:19 06:56 10:52 WBC RBC Hgb Hct MCV MCH MCHC RDW Plt Count Lymph % (Auto) [place] % (Auto) Eos % (Auto) Baso % (Auto) Lymph # [place] # Eos # Baso # Seg Neutrophils % Monocytes % (Manual) Monocytes # (Manual) D-Dimer ABG pH ABG pO2 90.7 H ABG HCO3 29.1 H ABG O2 Saturation ABG Base Excess 3.8 H ABG Hemoglobin 8.1 L Oxyhemoglobin 94.5 L Sodium Potassium Chloride Carbon Dioxide BUN Creatinine Glucose POC Glucose 303 H 244 H Lactic Acid Calcium Magnesium AST ALT Lactate Dehydrogenase Total Creatine Kinase C-Reactive Protein Total Protein Albumin Free T4 Urine WBC (Auto) Urine Total Protein Digoxin Salicylates Acetaminophen 01/01/20 01/01/20 01/01/20 13:39 14:49 18:42 WBC RBC Hgb Hct MCV MCH MCHC RDW Plt Count Lymph % (Auto) [place] % (Auto) Eos % (Auto) Baso % (Auto) Lymph # [place] # Eos # Baso # Seg Neutrophils % Monocytes % (Manual) Monocytes # (Manual) D-Dimer ABG pH ABG pO2 ABG HCO3 ABG O2 Saturation ABG Base Excess ABG Hemoglobin Oxyhemoglobin Sodium 147 H Potassium Chloride 107.1 H Carbon Dioxide BUN 28 H Creatinine Glucose 207 H POC Glucose 263 H 188 H Lactic Acid Calcium Magnesium AST ALT Lactate Dehydrogenase Total Creatine Kinase C-Reactive Protein Total Protein Albumin Free T4 Urine WBC (Auto) Urine Total Protein Digoxin Salicylates Acetaminophen 01/02/20 01/02/20 01/02/20 02:22 03:58 05:00 WBC RBC 3.31 L Hgb 8.0 L Hct 26.9 L MCV 81 L MCH 24 L MCHC 30 L RDW 19.4 H Plt Count Lymph % (Auto) [place] % (Auto) 9.4 H Eos % (Auto) 11.2 H Baso % (Auto) Lymph # [place] # Eos # 0.8 H Baso # Seg Neutrophils % Monocytes % (Manual) Monocytes # (Manual) D-Dimer ABG pH ABG pO2 63.0 L ABG HCO3 31.6 H ABG O2 Saturation 91.8 L ABG Base Excess 5.5 H ABG Hemoglobin 8.6 L Oxyhemoglobin 89.6 L Sodium Potassium Chloride Carbon Dioxide BUN Creatinine Glucose POC Glucose 196 H Lactic Acid Calcium Magnesium AST ALT Lactate Dehydrogenase Total Creatine Kinase C-Reactive Protein Total Protein Albumin Free T4 Urine WBC (Auto) Urine Total Protein Digoxin Salicylates Acetaminophen 01/02/20 01/02/20 01/02/20 05:40 10:26 13:57 WBC RBC Hgb Hct MCV MCH MCHC RDW Plt Count Lymph % (Auto) [place] % (Auto) Eos % (Auto) Baso % (Auto) Lymph # [place] # Eos # Baso # Seg Neutrophils % Monocytes % (Manual) Monocytes # (Manual) D-Dimer ABG pH ABG pO2 ABG HCO3 ABG O2 Saturation ABG Base Excess ABG Hemoglobin Oxyhemoglobin Sodium Potassium Chloride Carbon Dioxide BUN Creatinine Glucose POC Glucose 189 H 157 H 178 H Lactic Acid Calcium Magnesium AST ALT Lactate Dehydrogenase Total Creatine Kinase C-Reactive Protein Total Protein Albumin Free T4 Urine WBC (Auto) Urine Total Protein Digoxin Salicylates Acetaminophen 01/02/20 01/03/20 01/03/20 21:27 03:12 05:26 WBC RBC Hgb Hct MCV MCH MCHC RDW Plt Count Lymph % (Auto) [place] % (Auto) Eos % (Auto) Baso % (Auto) Lymph # [place] # Eos # Baso # Seg Neutrophils % Monocytes % (Manual) Monocytes # (Manual) D-Dimer ABG pH 7.473 H ABG pO2 109.6 H ABG HCO3 30.4 H ABG O2 Saturation ABG Base Excess 6.2 H ABG Hemoglobin 9.9 L Oxyhemoglobin Sodium Potassium Chloride Carbon Dioxide BUN Creatinine Glucose POC Glucose 131 H 133 H Lactic Acid Calcium Magnesium AST ALT Lactate Dehydrogenase Total Creatine Kinase C-Reactive Protein Total Protein Albumin Free T4 Urine WBC (Auto) Urine Total Protein Digoxin Salicylates Acetaminophen 01/03/20 01/03/20 01/03/20 05:40 05:40 15:01 WBC RBC 3.45 L Hgb 8.3 L Hct 27.3 L MCV 79 L MCH 24 L MCHC 30 L RDW 19.3 H Plt Count Lymph % (Auto) [place] % (Auto) Eos % (Auto) Baso % (Auto) Lymph # [place] # Eos # Baso # Seg Neutrophils % Monocytes % (Manual) Monocytes # (Manual) D-Dimer ABG pH ABG pO2 ABG HCO3 ABG O2 Saturation ABG Base Excess ABG Hemoglobin Oxyhemoglobin Sodium 151 H Potassium Chloride 111.8 H Carbon Dioxide 31 H BUN 37 H Creatinine 1.8 H Glucose 187 H POC Glucose 164 H Lactic Acid Calcium Magnesium AST ALT Lactate Dehydrogenase Total Creatine Kinase C-Reactive Protein Total Protein Albumin Free T4 Urine WBC (Auto) Urine Total Protein Digoxin Salicylates Acetaminophen 01/03/20 01/03/20 01/04/20 18:15 22:45 02:11 WBC RBC Hgb Hct MCV MCH MCHC RDW Plt Count Lymph % (Auto) [place] % (Auto) Eos % (Auto) Baso % (Auto) Lymph # [place] # Eos # Baso # Seg Neutrophils % Monocytes % (Manual) Monocytes # (Manual) D-Dimer ABG pH ABG pO2 ABG HCO3 ABG O2 Saturation ABG Base Excess ABG Hemoglobin Oxyhemoglobin Sodium Potassium Chloride Carbon Dioxide BUN Creatinine Glucose POC Glucose 184 H 176 H 206 H Lactic Acid Calcium Magnesium AST ALT Lactate Dehydrogenase Total Creatine Kinase C-Reactive Protein Total Protein Albumin Free T4 Urine WBC (Auto) Urine Total Protein Digoxin Salicylates Acetaminophen 01/04/20 01/04/20 01/04/20 03:16 05:15 10:53 WBC RBC Hgb Hct MCV MCH MCHC RDW Plt Count Lymph % (Auto) [place] % (Auto) Eos % (Auto) Baso % (Auto) Lymph # [place] # Eos # Baso # Seg Neutrophils % Monocytes % (Manual) Monocytes # (Manual) D-Dimer ABG pH 7.282 L ABG pO2 73.2 L ABG HCO3 ABG O2 Saturation 94.5 L ABG Base Excess -6.4 L ABG Hemoglobin 10.9 L Oxyhemoglobin 92.1 L Sodium Potassium Chloride Carbon Dioxide BUN Creatinine Glucose POC Glucose 139 H 224 H Lactic Acid Calcium Magnesium AST ALT Lactate Dehydrogenase Total Creatine Kinase C-Reactive Protein Total Protein Albumin Free T4 Urine WBC (Auto) Urine Total Protein Digoxin Salicylates Acetaminophen 01/04/20 01/04/20 01/04/20 15:47 18:05 22:07 WBC RBC Hgb Hct MCV MCH MCHC RDW Plt Count Lymph % (Auto) [place] % (Auto) Eos % (Auto) Baso % (Auto) Lymph # [place] # Eos # Baso # Seg Neutrophils % Monocytes % (Manual) Monocytes # (Manual) D-Dimer ABG pH ABG pO2 ABG HCO3 ABG O2 Saturation ABG Base Excess ABG Hemoglobin Oxyhemoglobin Sodium Potassium Chloride Carbon Dioxide BUN Creatinine Glucose POC Glucose 135 H 117 H 108 H Lactic Acid Calcium Magnesium AST ALT Lactate Dehydrogenase Total Creatine Kinase C-Reactive Protein Total Protein Albumin Free T4 Urine WBC (Auto) Urine Total Protein Digoxin Salicylates Acetaminophen 01/04/20 01/04/20 01/05/20 Unknown Unknown 02:04 WBC RBC 3.46 L Hgb 8.2 L Hct 27.8 L MCV 80 L MCH 24 L MCHC 30 L RDW 19.7 H Plt Count Lymph % (Auto) [place] % (Auto) Eos % (Auto) Baso % (Auto) Lymph # [place] # Eos # Baso # Seg Neutrophils % Monocytes % (Manual) Monocytes # (Manual) D-Dimer ABG pH ABG pO2 ABG HCO3 ABG O2 Saturation ABG Base Excess ABG Hemoglobin Oxyhemoglobin Sodium 150 H Potassium Chloride 110 H Carbon Dioxide 32 H BUN 32 H Creatinine Glucose 309 H POC Glucose 140 H Lactic Acid Calcium Magnesium AST ALT Lactate Dehydrogenase Total Creatine Kinase C-Reactive Protein Total Protein Albumin Free T4 Urine WBC (Auto) Urine Total Protein Digoxin Salicylates Acetaminophen 01/05/20 01/05/20 01/05/20 03:31 03:36 03:36 WBC RBC 3.46 L Hgb 8.4 L Hct 26.9 L MCV 78 L MCH 24 L MCHC 31 L RDW 19.0 H Plt Count Lymph % (Auto) [place] % (Auto) Eos % (Auto) Baso % (Auto) Lymph # [place] # Eos # Baso # Seg Neutrophils % Monocytes % (Manual) Monocytes # (Manual) D-Dimer ABG pH 7.454 H ABG pO2 113.0 H ABG HCO3 30.5 H ABG O2 Saturation ABG Base Excess 6.0 H ABG Hemoglobin 8.5 L Oxyhemoglobin Sodium 150 H Potassium Chloride 110.3 H Carbon Dioxide BUN 30 H Creatinine Glucose 148 H POC Glucose Lactic Acid Calcium Magnesium AST ALT Lactate Dehydrogenase Total Creatine Kinase C-Reactive Protein Total Protein Albumin Free T4 Urine WBC (Auto) Urine Total Protein Digoxin Salicylates Acetaminophen 01/05/20 01/05/20 01/05/20 05:21 09:56 11:45 WBC RBC Hgb Hct MCV MCH MCHC RDW Plt Count Lymph % (Auto) [place] % (Auto) Eos % (Auto) Baso % (Auto) Lymph # [place] # Eos # Baso # Seg Neutrophils % Monocytes % (Manual) Monocytes # (Manual) D-Dimer ABG pH ABG pO2 ABG HCO3 ABG O2 Saturation ABG Base Excess ABG Hemoglobin Oxyhemoglobin Sodium Potassium Chloride Carbon Dioxide BUN Creatinine Glucose POC Glucose 142 H 129 H 174 H Lactic Acid Calcium Magnesium AST ALT Lactate Dehydrogenase Total Creatine Kinase C-Reactive Protein Total Protein Albumin Free T4 Urine WBC (Auto) Urine Total Protein Digoxin Salicylates Acetaminophen 01/05/20 01/05/20 01/05/20 13:30 14:00 17:41 WBC RBC Hgb Hct MCV MCH MCHC RDW Plt Count Lymph % (Auto) [place] % (Auto) Eos % (Auto) Baso % (Auto) Lymph # [place] # Eos # Baso # Seg Neutrophils % Monocytes % (Manual) Monocytes # (Manual) D-Dimer ABG pH ABG pO2 ABG HCO3 ABG O2 Saturation ABG Base Excess ABG Hemoglobin Oxyhemoglobin Sodium Potassium Chloride Carbon Dioxide BUN 26 H Creatinine 1.6 H Glucose 302 H POC Glucose 168 H 136 H Lactic Acid Calcium Magnesium AST ALT Lactate Dehydrogenase Total Creatine Kinase C-Reactive Protein Total Protein Albumin Free T4 Urine WBC (Auto) Urine Total Protein Digoxin Salicylates Acetaminophen 01/05/20 01/05/20 01/06/20 20:38 23:32 03:50 WBC RBC Hgb Hct MCV MCH MCHC RDW Plt Count Lymph % (Auto) [place] % (Auto) Eos % (Auto) Baso % (Auto) Lymph # [place] # Eos # Baso # Seg Neutrophils % Monocytes % (Manual) Monocytes # (Manual) D-Dimer ABG pH ABG pO2 76.2 L ABG HCO3 30.1 H ABG O2 Saturation ABG Base Excess 5.1 H ABG Hemoglobin 9.5 L Oxyhemoglobin 93.8 L Sodium Potassium Chloride Carbon Dioxide BUN Creatinine Glucose POC Glucose 124 H 163 H Lactic Acid Calcium Magnesium AST ALT Lactate Dehydrogenase Total Creatine Kinase C-Reactive Protein Total Protein Albumin Free T4 Urine WBC (Auto) Urine Total Protein Digoxin Salicylates Acetaminophen 01/06/20 01/06/20 01/06/20 04:09 04:58 04:58 WBC RBC Hgb 8.8 L Hct 28.7 L MCV 78 L MCH 24 L MCHC 31 L RDW 18.7 H Plt Count 522 H Lymph % (Auto) [place] % (Auto) Eos % (Auto) Baso % (Auto) Lymph # [place] # Eos # Baso # Seg Neutrophils % Monocytes % (Manual) Monocytes # (Manual) D-Dimer ABG pH ABG pO2 ABG HCO3 ABG O2 Saturation ABG Base Excess ABG Hemoglobin Oxyhemoglobin Sodium 150 H D Potassium Chloride 109.3 H Carbon Dioxide BUN 25 H Creatinine Glucose 55 L POC Glucose 65 L Lactic Acid Calcium Magnesium AST ALT Lactate Dehydrogenase Total Creatine Kinase C-Reactive Protein Total Protein Albumin Free T4 Urine WBC (Auto) Urine Total Protein Digoxin Salicylates Acetaminophen 01/06/20 01/06/20 01/06/20 05:01 14:10 17:49 WBC RBC Hgb Hct MCV MCH MCHC RDW Plt Count Lymph % (Auto) [place] % (Auto) Eos % (Auto) Baso % (Auto) Lymph # [place] # Eos # Baso # Seg Neutrophils % Monocytes % (Manual) Monocytes # (Manual) D-Dimer ABG pH ABG pO2 ABG HCO3 ABG O2 Saturation ABG Base Excess ABG Hemoglobin Oxyhemoglobin Sodium Potassium Chloride Carbon Dioxide BUN Creatinine Glucose POC Glucose 60 L 119 H 131 H Lactic Acid Calcium Magnesium AST ALT Lactate Dehydrogenase Total Creatine Kinase C-Reactive Protein Total Protein Albumin Free T4 Urine WBC (Auto) Urine Total Protein Digoxin Salicylates Acetaminophen 01/06/20 01/07/20 01/07/20 21:08 02:11 05:19 WBC RBC Hgb Hct MCV MCH MCHC RDW Plt Count Lymph % (Auto) [place] % (Auto) Eos % (Auto) Baso % (Auto) Lymph # [place] # Eos # Baso # Seg Neutrophils % Monocytes % (Manual) Monocytes # (Manual) D-Dimer ABG pH ABG pO2 ABG HCO3 ABG O2 Saturation ABG Base Excess ABG Hemoglobin Oxyhemoglobin Sodium Potassium Chloride Carbon Dioxide BUN Creatinine Glucose POC Glucose 136 H 209 H 182 H Lactic Acid Calcium Magnesium AST ALT Lactate Dehydrogenase Total Creatine Kinase C-Reactive Protein Total Protein Albumin Free T4 Urine WBC (Auto) Urine Total Protein Digoxin Salicylates Acetaminophen 01/07/20 01/07/20 01/07/20 11:40 11:52 13:49 WBC RBC Hgb Hct MCV MCH MCHC RDW Plt Count Lymph % (Auto) [place] % (Auto) Eos % (Auto) Baso % (Auto) Lymph # [place] # Eos # Baso # Seg Neutrophils % Monocytes % (Manual) Monocytes # (Manual) D-Dimer ABG pH ABG pO2 ABG HCO3 ABG O2 Saturation ABG Base Excess ABG Hemoglobin Oxyhemoglobin Sodium Potassium Chloride Carbon Dioxide BUN 21 H Creatinine Glucose 190 H POC Glucose 180 H 184 H Lactic Acid Calcium Magnesium AST ALT Lactate Dehydrogenase Total Creatine Kinase C-Reactive Protein Total Protein Albumin Free T4 Urine WBC (Auto) Urine Total Protein Digoxin Salicylates Acetaminophen 01/07/20 01/07/20 01/07/20 17:54 22:19 Unknown WBC RBC Hgb Hct MCV MCH MCHC RDW Plt Count Lymph % (Auto) [place] % (Auto) Eos % (Auto) Baso % (Auto) Lymph # [place] # Eos # Baso # Seg Neutrophils % Monocytes % (Manual) Monocytes # (Manual) D-Dimer ABG pH ABG pO2 ABG HCO3 28.9 H ABG O2 Saturation ABG Base Excess 4.0 H ABG Hemoglobin 11.0 L Oxyhemoglobin 94.2 L Sodium Potassium Chloride Carbon Dioxide BUN Creatinine Glucose POC Glucose 190 H 299 H Lactic Acid Calcium Magnesium AST ALT Lactate Dehydrogenase Total Creatine Kinase C-Reactive Protein Total Protein Albumin Free T4 Urine WBC (Auto) Urine Total Protein Digoxin Salicylates Acetaminophen 01/08/20 01/08/20 01/08/20 02:45 05:26 05:27 WBC RBC Hgb Hct MCV MCH MCHC RDW Plt Count Lymph % (Auto) [place] % (Auto) Eos % (Auto) Baso % (Auto) Lymph # [place] # Eos # Baso # Seg Neutrophils % Monocytes % (Manual) Monocytes # (Manual) D-Dimer ABG pH ABG pO2 67.8 L ABG HCO3 26.5 H ABG O2 Saturation 93.2 L ABG Base Excess ABG Hemoglobin 8.1 L Oxyhemoglobin 90.4 L Sodium Potassium Chloride Carbon Dioxide BUN Creatinine Glucose POC Glucose 245 H 346 H Lactic Acid Calcium Magnesium AST ALT Lactate Dehydrogenase Total Creatine Kinase C-Reactive Protein Total Protein Albumin Free T4 Urine WBC (Auto) Urine Total Protein Digoxin Salicylates Acetaminophen 01/08/20 01/08/20 01/08/20 08:03 08:03 10:33 WBC RBC 3.14 L Hgb 7.6 L Hct 24.3 L MCV 77 L MCH 24 L MCHC 31 L RDW 18.3 H Plt Count 509 H Lymph % (Auto) [place] % (Auto) Eos % (Auto) Baso % (Auto) Lymph # [place] # Eos # Baso # Seg Neutrophils % Monocytes % (Manual) Monocytes # (Manual) D-Dimer ABG pH ABG pO2 ABG HCO3 ABG O2 Saturation ABG Base Excess ABG Hemoglobin Oxyhemoglobin Sodium 132 L D Potassium Chloride 94.7 L Carbon Dioxide BUN 22 H Creatinine Glucose 284 H POC Glucose 275 H Lactic Acid Calcium Magnesium AST ALT Lactate Dehydrogenase Total Creatine Kinase C-Reactive Protein Total Protein Albumin Free T4 Urine WBC (Auto) Urine Total Protein Digoxin Salicylates Acetaminophen 01/08/20 01/08/20 01/08/20 13:34 17:24 21:49 WBC RBC Hgb Hct MCV MCH MCHC RDW Plt Count Lymph % (Auto) [place] % (Auto) Eos % (Auto) Baso % (Auto) Lymph # [place] # Eos # Baso # Seg Neutrophils % Monocytes % (Manual) Monocytes # (Manual) D-Dimer ABG pH ABG pO2 ABG HCO3 ABG O2 Saturation ABG Base Excess ABG Hemoglobin Oxyhemoglobin Sodium Potassium Chloride Carbon Dioxide BUN Creatinine Glucose POC Glucose 273 H 294 H 265 H Lactic Acid Calcium Magnesium AST ALT Lactate Dehydrogenase Total Creatine Kinase C-Reactive Protein Total Protein Albumin Free T4 Urine WBC (Auto) Urine Total Protein Digoxin Salicylates Acetaminophen 01/09/20 01/09/20 01/09/20 00:13 03:45 05:55 WBC RBC Hgb Hct MCV MCH MCHC RDW Plt Count Lymph % (Auto) [place] % (Auto) Eos % (Auto) Baso % (Auto) Lymph # [place] # Eos # Baso # Seg Neutrophils % Monocytes % (Manual) Monocytes # (Manual) D-Dimer ABG pH ABG pO2 ABG HCO3 ABG O2 Saturation ABG Base Excess ABG Hemoglobin Oxyhemoglobin Sodium Potassium Chloride Carbon Dioxide BUN Creatinine Glucose POC Glucose 251 H 346 H 300 H Lactic Acid Calcium Magnesium AST ALT Lactate Dehydrogenase Total Creatine Kinase C-Reactive Protein Total Protein Albumin Free T4 Urine WBC (Auto) Urine Total Protein Digoxin Salicylates Acetaminophen 01/09/20 01/09/20 01/09/20 08:15 09:31 12:04 WBC RBC Hgb Hct MCV MCH MCHC RDW Plt Count Lymph % (Auto) [place] % (Auto) Eos % (Auto) Baso % (Auto) Lymph # [place] # Eos # Baso # Seg Neutrophils % Monocytes % (Manual) Monocytes # (Manual) D-Dimer ABG pH ABG pO2 ABG HCO3 ABG O2 Saturation ABG Base Excess ABG Hemoglobin Oxyhemoglobin Sodium 134 L Potassium Chloride 97.6 L Carbon Dioxide BUN 25 H Creatinine Glucose 240 H POC Glucose 191 H 230 H Lactic Acid Calcium Magnesium AST ALT Lactate Dehydrogenase Total Creatine Kinase C-Reactive Protein Total Protein Albumin Free T4 Urine WBC (Auto) Urine Total Protein Digoxin Salicylates Acetaminophen 01/09/20 01/09/20 01/09/20 13:46 17:31 22:28 WBC RBC Hgb Hct MCV MCH MCHC RDW Plt Count Lymph % (Auto) [place] % (Auto) Eos % (Auto) Baso % (Auto) Lymph # [place] # Eos # Baso # Seg Neutrophils % Monocytes % (Manual) Monocytes # (Manual) D-Dimer ABG pH ABG pO2 ABG HCO3 ABG O2 Saturation ABG Base Excess ABG Hemoglobin Oxyhemoglobin Sodium Potassium Chloride Carbon Dioxide BUN Creatinine Glucose POC Glucose 211 H 260 H 223 H Lactic Acid Calcium Magnesium AST ALT Lactate Dehydrogenase Total Creatine Kinase C-Reactive Protein Total Protein Albumin Free T4 Urine WBC (Auto) Urine Total Protein Digoxin Salicylates Acetaminophen 01/10/20 01/10/20 01/10/20 02:16 04:20 05:55 WBC RBC Hgb Hct MCV MCH MCHC RDW Plt Count Lymph % (Auto) [place] % (Auto) Eos % (Auto) Baso % (Auto) Lymph # [place] # Eos # Baso # Seg Neutrophils % Monocytes % (Manual) Monocytes # (Manual) D-Dimer ABG pH ABG pO2 95.3 H ABG HCO3 27.8 H ABG O2 Saturation ABG Base Excess ABG Hemoglobin 8.3 L Oxyhemoglobin Sodium Potassium Chloride Carbon Dioxide BUN Creatinine Glucose POC Glucose 219 H 245 H Lactic Acid Calcium Magnesium AST ALT Lactate Dehydrogenase Total Creatine Kinase C-Reactive Protein Total Protein Albumin Free T4 Urine WBC (Auto) Urine Total Protein Digoxin Salicylates Acetaminophen 01/10/20 01/10/20 01/10/20 10:38 15:08 15:45 WBC RBC Hgb Hct MCV MCH MCHC RDW Plt Count Lymph % (Auto) [place] % (Auto) Eos % (Auto) Baso % (Auto) Lymph # [place] # Eos # Baso # Seg Neutrophils % Monocytes % (Manual) Monocytes # (Manual) D-Dimer ABG pH ABG pO2 ABG HCO3 ABG O2 Saturation ABG Base Excess ABG Hemoglobin Oxyhemoglobin Sodium Potassium Chloride Carbon Dioxide BUN Creatinine Glucose POC Glucose 268 H 246 H 238 H Lactic Acid Calcium Magnesium AST ALT Lactate Dehydrogenase Total Creatine Kinase C-Reactive Protein Total Protein Albumin Free T4 Urine WBC (Auto) Urine Total Protein Digoxin Salicylates Acetaminophen 01/10/20 01/10/20 01/10/20 18:00 21:09 22:48 WBC RBC Hgb Hct MCV MCH MCHC RDW Plt Count Lymph % (Auto) [place] % (Auto) Eos % (Auto) Baso % (Auto) Lymph # [place] # Eos # Baso # Seg Neutrophils % Monocytes % (Manual) Monocytes # (Manual) D-Dimer ABG pH ABG pO2 ABG HCO3 ABG O2 Saturation ABG Base Excess ABG Hemoglobin Oxyhemoglobin Sodium Potassium Chloride Carbon Dioxide BUN Creatinine Glucose POC Glucose 187 H 176 H 189 H Lactic Acid Calcium Magnesium AST ALT Lactate Dehydrogenase Total Creatine Kinase C-Reactive Protein Total Protein Albumin Free T4 Urine WBC (Auto) Urine Total Protein Digoxin Salicylates Acetaminophen 01/11/20 01/11/20 01/11/20 03:07 05:45 05:45 WBC RBC 3.15 L Hgb 7.7 L Hct 24.9 L MCV 79 L MCH 24 L MCHC 31 L RDW 18.7 H Plt Count 667 H Lymph % (Auto) [place] % (Auto) Eos % (Auto) Baso % (Auto) Lymph # [place] # Eos # Baso # Seg Neutrophils % Monocytes % (Manual) Monocytes # (Manual) D-Dimer ABG pH ABG pO2 ABG HCO3 ABG O2 Saturation ABG Base Excess ABG Hemoglobin Oxyhemoglobin Sodium 148 H D Potassium 5.1 H Chloride 111.9 H Carbon Dioxide BUN 26 H Creatinine Glucose 236 H POC Glucose 253 H Lactic Acid Calcium Magnesium AST 67 H ALT Lactate Dehydrogenase Total Creatine Kinase C-Reactive Protein Total Protein 5.9 L Albumin 2.8 L Free T4 Urine WBC (Auto) Urine Total Protein Digoxin Salicylates Acetaminophen 01/11/20 01/11/20 01/11/20 06:10 12:59 14:22 WBC RBC Hgb Hct MCV MCH MCHC RDW Plt Count Lymph % (Auto) [place] % (Auto) Eos % (Auto) Baso % (Auto) Lymph # [place] # Eos # Baso # Seg Neutrophils % Monocytes % (Manual) Monocytes # (Manual) D-Dimer ABG pH ABG pO2 ABG HCO3 ABG O2 Saturation ABG Base Excess ABG Hemoglobin Oxyhemoglobin Sodium Potassium Chloride Carbon Dioxide BUN Creatinine Glucose POC Glucose 261 H 234 H 220 H Lactic Acid Calcium Magnesium AST ALT Lactate Dehydrogenase Total Creatine Kinase C-Reactive Protein Total Protein Albumin Free T4 Urine WBC (Auto) Urine Total Protein Digoxin Salicylates Acetaminophen 01/11/20 01/11/20 01/12/20 17:18 21:20 00:45 WBC RBC Hgb Hct MCV MCH MCHC RDW Plt Count Lymph % (Auto) [place] % (Auto) Eos % (Auto) Baso % (Auto) Lymph # [place] # Eos # Baso # Seg Neutrophils % Monocytes % (Manual) Monocytes # (Manual) D-Dimer ABG pH ABG pO2 ABG HCO3 ABG O2 Saturation ABG Base Excess ABG Hemoglobin Oxyhemoglobin Sodium Potassium Chloride Carbon Dioxide BUN Creatinine Glucose POC Glucose 264 H 299 H 289 H Lactic Acid Calcium Magnesium AST ALT Lactate Dehydrogenase Total Creatine Kinase C-Reactive Protein Total Protein Albumin Free T4 Urine WBC (Auto) Urine Total Protein Digoxin Salicylates Acetaminophen 01/12/20 01/12/20 01/12/20 04:35 06:10 11:29 WBC RBC Hgb Hct MCV MCH MCHC RDW Plt Count Lymph % (Auto) [place] % (Auto) Eos % (Auto) Baso % (Auto) Lymph # [place] # Eos # Baso # Seg Neutrophils % Monocytes % (Manual) Monocytes # (Manual) D-Dimer ABG pH ABG pO2 ABG HCO3 ABG O2 Saturation ABG Base Excess ABG Hemoglobin Oxyhemoglobin Sodium Potassium Chloride Carbon Dioxide BUN Creatinine Glucose POC Glucose 187 H 194 H 213 H Lactic Acid Calcium Magnesium AST ALT Lactate Dehydrogenase Total Creatine Kinase C-Reactive Protein Total Protein Albumin Free T4 Urine WBC (Auto) Urine Total Protein Digoxin Salicylates Acetaminophen 01/12/20 01/12/20 01/12/20 14:40 18:50 21:34 WBC RBC Hgb Hct MCV MCH MCHC RDW Plt Count Lymph % (Auto) [place] % (Auto) Eos % (Auto) Baso % (Auto) Lymph # [place] # Eos # Baso # Seg Neutrophils % Monocytes % (Manual) Monocytes # (Manual) D-Dimer ABG pH ABG pO2 ABG HCO3 ABG O2 Saturation ABG Base Excess ABG Hemoglobin Oxyhemoglobin Sodium Potassium Chloride Carbon Dioxide BUN Creatinine Glucose POC Glucose 288 H 292 H 147 H Lactic Acid Calcium Magnesium AST ALT Lactate Dehydrogenase Total Creatine Kinase C-Reactive Protein Total Protein Albumin Free T4 Urine WBC (Auto) Urine Total Protein Digoxin Salicylates Acetaminophen 01/12/20 01/13/20 01/13/20 23:16 04:00 05:27 WBC RBC Hgb Hct MCV MCH MCHC RDW Plt Count Lymph % (Auto) [place] % (Auto) Eos % (Auto) Baso % (Auto) Lymph # [place] # Eos # Baso # Seg Neutrophils % Monocytes % (Manual) Monocytes # (Manual) D-Dimer ABG pH ABG pO2 ABG HCO3 ABG O2 Saturation ABG Base Excess ABG Hemoglobin Oxyhemoglobin Sodium 149 H Potassium Chloride 112.4 H Carbon Dioxide 32 H BUN 28 H Creatinine Glucose 174 H POC Glucose 122 H 143 H Lactic Acid Calcium Magnesium AST ALT Lactate Dehydrogenase Total Creatine Kinase C-Reactive Protein Total Protein Albumin Free T4 Urine WBC (Auto) Urine Total Protein Digoxin Salicylates Acetaminophen 01/13/20 01/13/20 01/13/20 10:24 13:34 15:10 WBC RBC Hgb Hct MCV MCH MCHC RDW Plt Count Lymph % (Auto) [place] % (Auto) Eos % (Auto) Baso % (Auto) Lymph # [place] # Eos # Baso # Seg Neutrophils % Monocytes % (Manual) Monocytes # (Manual) D-Dimer ABG pH 7.223 L ABG pO2 ABG HCO3 33.1 H ABG O2 Saturation 94.7 L ABG Base Excess 4.2 H ABG Hemoglobin 8.5 L Oxyhemoglobin 92.1 L Sodium Potassium Chloride Carbon Dioxide BUN Creatinine Glucose POC Glucose 172 H 151 H Lactic Acid Calcium Magnesium AST ALT Lactate Dehydrogenase Total Creatine Kinase C-Reactive Protein Total Protein Albumin Free T4 Urine WBC (Auto) Urine Total Protein Digoxin Salicylates Acetaminophen 01/13/20 01/13/20 01/13/20 17:59 20:37 22:17 WBC RBC Hgb Hct MCV MCH MCHC RDW Plt Count Lymph % (Auto) [place] % (Auto) Eos % (Auto) Baso % (Auto) Lymph # [place] # Eos # Baso # Seg Neutrophils % Monocytes % (Manual) Monocytes # (Manual) D-Dimer ABG pH ABG pO2 ABG HCO3 ABG O2 Saturation ABG Base Excess ABG Hemoglobin Oxyhemoglobin Sodium Potassium Chloride Carbon Dioxide BUN Creatinine Glucose POC Glucose 114 H 152 H Lactic Acid Calcium Magnesium AST ALT Lactate Dehydrogenase Total Creatine Kinase C-Reactive Protein Total Protein Albumin Free T4 0.63 L Urine WBC (Auto) Urine Total Protein Digoxin Salicylates Acetaminophen 01/13/20 01/14/20 01/14/20 Unknown 02:10 05:20 WBC RBC 3.39 L Hgb 8.1 L Hct 28.4 L MCV MCH 24 L MCHC 29 L RDW 19.9 H Plt Count 713 H Lymph % (Auto) [place] % (Auto) 12.7 H Eos % (Auto) Baso % (Auto) 1.9 H Lymph # [place] # 1.3 H Eos # Baso # 0.2 H Seg Neutrophils % Monocytes % (Manual) Monocytes # (Manual) D-Dimer ABG pH ABG pO2 ABG HCO3 ABG O2 Saturation ABG Base Excess ABG Hemoglobin Oxyhemoglobin Sodium Potassium Chloride Carbon Dioxide BUN Creatinine Glucose POC Glucose 151 H 157 H Lactic Acid Calcium Magnesium AST ALT Lactate Dehydrogenase Total Creatine Kinase C-Reactive Protein Total Protein Albumin Free T4 Urine WBC (Auto) Urine Total Protein Digoxin Salicylates Acetaminophen 01/14/20 01/14/20 01/14/20 11:49 14:56 18:03 WBC RBC Hgb Hct MCV MCH MCHC RDW Plt Count Lymph % (Auto) [place] % (Auto) Eos % (Auto) Baso % (Auto) Lymph # [place] # Eos # Baso # Seg Neutrophils % Monocytes % (Manual) Monocytes # (Manual) D-Dimer ABG pH ABG pO2 ABG HCO3 ABG O2 Saturation ABG Base Excess ABG Hemoglobin Oxyhemoglobin Sodium Potassium Chloride Carbon Dioxide BUN Creatinine Glucose POC Glucose 139 H 112 H 134 H Lactic Acid Calcium Magnesium AST ALT Lactate Dehydrogenase Total Creatine Kinase C-Reactive Protein Total Protein Albumin Free T4 Urine WBC (Auto) Urine Total Protein Digoxin Salicylates Acetaminophen 01/14/20 01/15/20 01/15/20 22:03 02:21 05:28 WBC RBC Hgb Hct MCV MCH MCHC RDW Plt Count Lymph % (Auto) [place] % (Auto) Eos % (Auto) Baso % (Auto) Lymph # [place] # Eos # Baso # Seg Neutrophils % Monocytes % (Manual) Monocytes # (Manual) D-Dimer ABG pH ABG pO2 ABG HCO3 ABG O2 Saturation ABG Base Excess ABG Hemoglobin Oxyhemoglobin Sodium Potassium Chloride Carbon Dioxide BUN Creatinine Glucose POC Glucose 173 H 129 H 127 H Lactic Acid Calcium Magnesium AST ALT Lactate Dehydrogenase Total Creatine Kinase C-Reactive Protein Total Protein Albumin Free T4 Urine WBC (Auto) Urine Total Protein Digoxin Salicylates Acetaminophen 01/15/20 01/15/20 01/15/20 10:43 16:14 18:25 WBC RBC Hgb Hct MCV MCH MCHC RDW Plt Count Lymph % (Auto) [place] % (Auto) Eos % (Auto) Baso % (Auto) Lymph # [place] # Eos # Baso # Seg Neutrophils % Monocytes % (Manual) Monocytes # (Manual) D-Dimer ABG pH ABG pO2 ABG HCO3 ABG O2 Saturation ABG Base Excess ABG Hemoglobin Oxyhemoglobin Sodium Potassium Chloride Carbon Dioxide BUN Creatinine Glucose POC Glucose 150 H 133 H 166 H Lactic Acid Calcium Magnesium AST ALT Lactate Dehydrogenase Total Creatine Kinase C-Reactive Protein Total Protein Albumin Free T4 Urine WBC (Auto) Urine Total Protein Digoxin Salicylates Acetaminophen 01/15/20 01/16/20 01/16/20 23:03 02:11 06:00 WBC RBC 3.19 L Hgb 7.9 L Hct 26.2 L MCV 82 L MCH 25 L MCHC 30 L RDW 20.1 H Plt Count 466 H Lymph % (Auto) 12.9 L [place] % (Auto) 11.2 H Eos % (Auto) 11.0 H Baso % (Auto) Lymph # 1.1 L [place] # 0.9 H Eos # 0.9 H Baso # Seg Neutrophils % Monocytes % (Manual) Monocytes # (Manual) D-Dimer ABG pH ABG pO2 ABG HCO3 ABG O2 Saturation ABG Base Excess ABG Hemoglobin Oxyhemoglobin Sodium Potassium Chloride Carbon Dioxide BUN Creatinine Glucose POC Glucose 143 H 136 H Lactic Acid Calcium Magnesium AST ALT Lactate Dehydrogenase Total Creatine Kinase C-Reactive Protein Total Protein Albumin Free T4 Urine WBC (Auto) Urine Total Protein Digoxin Salicylates Acetaminophen 01/16/20 01/16/20 01/16/20 06:00 06:10 11:52 WBC RBC Hgb Hct MCV MCH MCHC RDW Plt Count Lymph % (Auto) [place] % (Auto) Eos % (Auto) Baso % (Auto) Lymph # [place] # Eos # Baso # Seg Neutrophils % Monocytes % (Manual) Monocytes # (Manual) D-Dimer ABG pH ABG pO2 ABG HCO3 ABG O2 Saturation ABG Base Excess ABG Hemoglobin Oxyhemoglobin Sodium 152 H Potassium Chloride 110.2 H Carbon Dioxide 36 H BUN 23 H Creatinine 0.7 L Glucose 161 H POC Glucose 192 H 184 H Lactic Acid Calcium Magnesium AST ALT Lactate Dehydrogenase Total Creatine Kinase C-Reactive Protein Total Protein Albumin Free T4 Urine WBC (Auto) Urine Total Protein Digoxin Salicylates Acetaminophen 01/16/20 01/16/20 01/16/20 15:15 17:12 22:12 WBC RBC Hgb Hct MCV MCH MCHC RDW Plt Count Lymph % (Auto) [place] % (Auto) Eos % (Auto) Baso % (Auto) Lymph # [place] # Eos # Baso # Seg Neutrophils % Monocytes % (Manual) Monocytes # (Manual) D-Dimer ABG pH ABG pO2 ABG HCO3 ABG O2 Saturation ABG Base Excess ABG Hemoglobin Oxyhemoglobin Sodium Potassium Chloride Carbon Dioxide BUN Creatinine Glucose POC Glucose 224 H 183 H 106 H Lactic Acid Calcium Magnesium AST ALT Lactate Dehydrogenase Total Creatine Kinase C-Reactive Protein Total Protein Albumin Free T4 Urine WBC (Auto) Urine Total Protein Digoxin Salicylates Acetaminophen 01/17/20 01/17/20 01/17/20 02:13 06:10 06:20 WBC RBC 3.50 L Hgb 8.6 L Hct 29.0 L MCV 83 L MCH 25 L MCHC 30 L RDW 21.1 H Plt Count 517 H Lymph % (Auto) [place] % (Auto) 9.7 H Eos % (Auto) 11.9 H Baso % (Auto) Lymph # [place] # Eos # 1.0 H Baso # Seg Neutrophils % Monocytes % (Manual) Monocytes # (Manual) D-Dimer ABG pH ABG pO2 ABG HCO3 ABG O2 Saturation ABG Base Excess ABG Hemoglobin Oxyhemoglobin Sodium Potassium Chloride Carbon Dioxide BUN Creatinine Glucose POC Glucose 164 H 178 H Lactic Acid Calcium Magnesium AST ALT Lactate Dehydrogenase Total Creatine Kinase C-Reactive Protein Total Protein Albumin Free T4 Urine WBC (Auto) Urine Total Protein Digoxin Salicylates Acetaminophen 01/17/20 01/17/20 01/17/20 06:20 10:48 13:23 WBC RBC Hgb Hct MCV MCH MCHC RDW Plt Count Lymph % (Auto) [place] % (Auto) Eos % (Auto) Baso % (Auto) Lymph # [place] # Eos # Baso # Seg Neutrophils % Monocytes % (Manual) Monocytes # (Manual) D-Dimer ABG pH ABG pO2 ABG HCO3 ABG O2 Saturation ABG Base Excess ABG Hemoglobin Oxyhemoglobin Sodium 148 H Potassium Chloride Carbon Dioxide 34 H BUN 21 H Creatinine 0.6 L Glucose 151 H POC Glucose 172 H 161 H Lactic Acid Calcium Magnesium AST ALT Lactate Dehydrogenase Total Creatine Kinase C-Reactive Protein Total Protein Albumin Free T4 Urine WBC (Auto) Urine Total Protein Digoxin Salicylates Acetaminophen 01/17/20 01/17/20 01/18/20 17:23 21:46 04:45 WBC RBC 3.28 L Hgb 8.0 L Hct 27.0 L MCV 82 L MCH 24 L MCHC 30 L RDW 21.0 H Plt Count 450 H Lymph % (Auto) [place] % (Auto) 11.5 H Eos % (Auto) 13.1 H Baso % (Auto) Lymph # [place] # Eos # 0.9 H Baso # Seg Neutrophils % Monocytes % (Manual) Monocytes # (Manual) D-Dimer ABG pH ABG pO2 ABG HCO3 ABG O2 Saturation ABG Base Excess ABG Hemoglobin Oxyhemoglobin Sodium Potassium Chloride Carbon Dioxide BUN Creatinine Glucose POC Glucose 138 H 106 H Lactic Acid Calcium Magnesium AST ALT Lactate Dehydrogenase Total Creatine Kinase C-Reactive Protein Total Protein Albumin Free T4 Urine WBC (Auto) Urine Total Protein Digoxin Salicylates Acetaminophen 01/18/20 01/18/20 01/18/20 04:45 10:38 12:19 WBC RBC Hgb Hct MCV MCH MCHC RDW Plt Count Lymph % (Auto) [place] % (Auto) Eos % (Auto) Baso % (Auto) Lymph # [place] # Eos # Baso # Seg Neutrophils % Monocytes % (Manual) Monocytes # (Manual) D-Dimer ABG pH ABG pO2 ABG HCO3 ABG O2 Saturation ABG Base Excess ABG Hemoglobin Oxyhemoglobin Sodium Potassium Chloride Carbon Dioxide 35 H BUN Creatinine Glucose 71 L POC Glucose 106 H 138 H Lactic Acid Calcium Magnesium AST ALT Lactate Dehydrogenase Total Creatine Kinase C-Reactive Protein Total Protein Albumin Free T4 Urine WBC (Auto) Urine Total Protein Digoxin Salicylates Acetaminophen 01/18/20 01/18/20 01/19/20 13:38 17:54 03:36 WBC RBC Hgb Hct MCV MCH MCHC RDW Plt Count Lymph % (Auto) [place] % (Auto) Eos % (Auto) Baso % (Auto) Lymph # [place] # Eos # Baso # Seg Neutrophils % Monocytes % (Manual) Monocytes # (Manual) D-Dimer ABG pH ABG pO2 ABG HCO3 ABG O2 Saturation ABG Base Excess ABG Hemoglobin Oxyhemoglobin Sodium Potassium Chloride Carbon Dioxide BUN Creatinine Glucose POC Glucose 129 H 144 H 185 H Lactic Acid Calcium Magnesium AST ALT Lactate Dehydrogenase Total Creatine Kinase C-Reactive Protein Total Protein Albumin Free T4 Urine WBC (Auto) Urine Total Protein Digoxin Salicylates Acetaminophen 01/19/20 01/19/20 01/19/20 05:45 05:45 06:16 WBC RBC 3.30 L Hgb 8.1 L Hct 27.2 L MCV 82 L MCH 25 L MCHC 30 L RDW 20.6 H Plt Count Lymph % (Auto) 10.3 L [place] % (Auto) 13.0 H Eos % (Auto) 7.9 H Baso % (Auto) Lymph # 0.8 L [place] # 1.0 H Eos # 0.6 H Baso # Seg Neutrophils % Monocytes % (Manual) Monocytes # (Manual) D-Dimer ABG pH ABG pO2 ABG HCO3 ABG O2 Saturation ABG Base Excess ABG Hemoglobin Oxyhemoglobin Sodium Potassium Chloride Carbon Dioxide 34 H BUN Creatinine Glucose 167 H POC Glucose 182 H Lactic Acid Calcium Magnesium AST ALT Lactate Dehydrogenase Total Creatine Kinase C-Reactive Protein Total Protein Albumin Free T4 Urine WBC (Auto) Urine Total Protein Digoxin Salicylates Acetaminophen 01/19/20 01/19/20 01/19/20 09:18 13:46 18:17 WBC RBC Hgb Hct MCV MCH MCHC RDW Plt Count Lymph % (Auto) [place] % (Auto) Eos % (Auto) Baso % (Auto) Lymph # [place] # Eos # Baso # Seg Neutrophils % Monocytes % (Manual) Monocytes # (Manual) D-Dimer ABG pH ABG pO2 ABG HCO3 ABG O2 Saturation ABG Base Excess ABG Hemoglobin Oxyhemoglobin Sodium Potassium Chloride Carbon Dioxide BUN Creatinine Glucose POC Glucose 181 H 238 H 189 H Lactic Acid Calcium Magnesium AST ALT Lactate Dehydrogenase Total Creatine Kinase C-Reactive Protein Total Protein Albumin Free T4 Urine WBC (Auto) Urine Total Protein Digoxin Salicylates Acetaminophen 01/19/20 01/20/20 01/20/20 22:19 02:08 05:54 WBC RBC Hgb Hct MCV MCH MCHC RDW Plt Count Lymph % (Auto) [place] % (Auto) Eos % (Auto) Baso % (Auto) Lymph # [place] # Eos # Baso # Seg Neutrophils % Monocytes % (Manual) Monocytes # (Manual) D-Dimer ABG pH ABG pO2 ABG HCO3 ABG O2 Saturation ABG Base Excess ABG Hemoglobin Oxyhemoglobin Sodium Potassium Chloride Carbon Dioxide BUN Creatinine Glucose POC Glucose 138 H 196 H 200 H Lactic Acid Calcium Magnesium AST ALT Lactate Dehydrogenase Total Creatine Kinase C-Reactive Protein Total Protein Albumin Free T4 Urine WBC (Auto) Urine Total Protein Digoxin Salicylates Acetaminophen 01/20/20 01/20/20 01/21/20 10:40 17:09 00:49 WBC RBC Hgb Hct MCV MCH MCHC RDW Plt Count Lymph % (Auto) [place] % (Auto) Eos % (Auto) Baso % (Auto) Lymph # [place] # Eos # Baso # Seg Neutrophils % Monocytes % (Manual) Monocytes # (Manual) D-Dimer ABG pH ABG pO2 ABG HCO3 ABG O2 Saturation ABG Base Excess ABG Hemoglobin Oxyhemoglobin Sodium Potassium Chloride Carbon Dioxide BUN Creatinine Glucose POC Glucose 163 H 135 H 174 H Lactic Acid Calcium Magnesium AST ALT Lactate Dehydrogenase Total Creatine Kinase C-Reactive Protein Total Protein Albumin Free T4 Urine WBC (Auto) Urine Total Protein Digoxin Salicylates Acetaminophen 01/21/20 05:47 WBC RBC Hgb Hct MCV MCH MCHC RDW Plt Count Lymph % (Auto) [place] % (Auto) Eos % (Auto) Baso % (Auto) Lymph # [place] # Eos # Baso # Seg Neutrophils % Monocytes % (Manual) Monocytes # (Manual) D-Dimer ABG pH ABG pO2 ABG HCO3 ABG O2 Saturation ABG Base Excess ABG Hemoglobin Oxyhemoglobin Sodium Potassium Chloride Carbon Dioxide BUN Creatinine Glucose POC Glucose 180 H Lactic Acid Calcium Magnesium AST ALT Lactate Dehydrogenase Total Creatine Kinase C-Reactive Protein Total Protein Albumin Free T4 Urine WBC (Auto) Urine Total Protein Digoxin Salicylates Acetaminophen Allied health notes reviewed: RT
[2020-01-21 13:41] LABS: Mean Corpuscular HGB Conc 29 % (32-34); Mean Corpuscular Volume 83 fl (84-94); Platelet Count 307 K/mm3 (140-440); Red Blood Count 3.06 M/mm3 (3.65-5.03)
--- NOTE | 2020-01-21 13:41 | Progress Note ---
Assessment and Plan - Patient Problems (1) Bradycardia Current Visit: Yes Status: Acute Plan to address problem: Bradycardia has resolved, sinus rhythm at 92. (2) Cardiomyopathy Current Visit: Yes Status: Acute Plan to address problem: Echocardiogram reviewed, showed a moderate severity dilated cardiomyopathy with estimated ejection fraction 35 to 40%. Continue conservative supportive cardiac management at this time until hemodynamics support introduction of guideline directed medical therapies. Subjective Date of service: 01/21/20 Principal diagnosis: Ac. Hypoxemic Resp Failure; Septic Shock; Magdiel. PNA; PUI COVID-19; CHF; JOE Interval history: Patient is sedated, has a trach and is on the vent. On mortar maker, there is a sinus rhythm at 92. Objective Vital Signs Temp Pulse Pulse Pulse Resp Resp Resp 01/21/20 12:45 91 H 27 H 01/21/20 12:30 91 H 26 H 01/21/20 12:15 92 H 27 H 01/21/20 12:00 84 20 01/21/20 11:45 105 H 14 01/21/20 11:30 104 H 14 01/21/20 11:15 106 H 14 01/21/20 11:00 103 H 16 01/21/20 10:45 104 H 18 01/21/20 10:30 97 H 14 01/21/20 10:15 95 H 14 01/21/20 10:00 98 H 14 14 01/21/20 09:45 98 H 14 01/21/20 09:30 95 H 14 01/21/20 09:15 94 H 14 01/21/20 09:00 92 H 14 01/21/20 08:45 84 28 H 01/21/20 08:30 63 21 01/21/20 08:15 89 14 01/21/20 08:00 99.7 F H 85 107 H 15 01/21/20 07:45 89 14 01/21/20 07:31 106 H 18 01/21/20 07:15 91 H 14 01/21/20 07:00 91 H 14 01/21/20 06:45 92 H 14 01/21/20 06:30 86 14 01/21/20 06:15 92 H 15 01/21/20 06:00 90 14 01/21/20 05:45 93 H 14 01/21/20 05:30 88 14 01/21/20 05:15 87 15 01/21/20 05:00 88 14 01/21/20 04:45 84 14 01/21/20 04:30 90 14 01/21/20 04:15 88 14 01/21/20 04:00 87 14 01/21/20 03:45 88 14 01/21/20 03:30 100.4 F H 87 14 01/21/20 03:15 87 14 01/21/20 03:10 85 01/21/20 03:00 81 14 01/21/20 02:45 87 14 01/21/20 02:30 87 14 01/21/20 02:15 83 14 01/21/20 02:00 88 14 01/21/20 01:45 88 14 01/21/20 01:30 87 14 01/21/20 01:15 88 14 01/21/20 01:00 87 14 01/21/20 00:45 90 14 01/21/20 00:30 91 H 14 01/21/20 00:15 85 14 01/21/20 00:00 82 14 01/20/20 23:46 99.8 F H 01/20/20 23:45 82 14 01/20/20 23:35 85 1620 23:31 82 14 01/20/20 23:30 82 14 01/20/20 23:15 84 14 01/20/20 23:00 85 14 14 01/20/20 22:45 85 14 01/20/20 22:30 87 14 20 22:15 87 14 01/20/20 22:00 84 14 01/20/20 21:45 84 14 01/20/20 21:30 85 14 20 21:15 87 14 20 21:00 81 14 20 20:45 84 14 20 20:31 92 H 14 20 20:26 78 14 20 20:15 81 14 20 20:00 99.4 F 78 14 20 19:45 82 14 1620 19:30 85 14 1620 19:15 82 14 1620 19:01 82 14 01/20/20 19:00 82 14 20 18:45 77 14 20 18:30 78 14 01/20/20 18:15 80 14 01/20/20 18:01 74 14 01/20/20 17:45 73 14 01/20/20 17:30 77 14 01/20/20 17:15 68 14 01/20/20 17:00 79 12 01/20/20 16:53 72 01/20/20 16:45 73 14 01/20/20 16:30 66 14 01/20/20 16:15 72 20 01/20/20 16:00 98.3 F 72 21 01/20/20 15:46 67 21 01/20/20 15:30 82 22 01/20/20 15:15 79 17 01/20/20 15:00 81 18 01/20/20 14:45 81 15 01/20/20 14:30 76 14 01/20/20 14:15 75 14 01/20/20 14:00 78 14 01/20/20 13:50 65 14 01/20/20 13:45 77 13 BP Pulse Ox Pulse Ox 01/21/20 12:45 114/63 94 01/21/20 12:30 101/60 95 01/21/20 12:15 110/63 95 01/21/20 12:00 120/64 94 01/21/20 11:45 123/67 94 01/21/20 11:30 127/70 94 01/21/20 11:15 116/72 95 01/21/20 11:00 126/67 96 01/21/20 10:45 122/69 96 01/21/20 10:30 117/66 93 01/21/20 10:15 120/65 95 01/21/20 10:00 109/57 94 01/21/20 09:45 110/60 94 01/21/20 09:30 114/56 94 01/21/20 09:15 108/58 94 01/21/20 09:00 118/60 94 01/21/20 08:45 122/61 93 01/21/20 08:30 132/63 92 01/21/20 08:15 110/53 93 01/21/20 08:00 132/63 96 96 01/21/20 07:45 127/48 94 01/21/20 07:31 133/91 92 01/21/20 07:15 119/65 93 07/17/20 07:00 113/58 93 0720 06:45 117/62 93 20 06:30 107/56 93 07 06:15 118/63 93 01/21/20 06:00 111/59 93 20 05:45 115/59 94 20 05:30 118/58 94 071720 05:15 115/60 93 07 05:00 112/64 93 01/21/20 04:45 107/55 93 20 04:30 105/55 93 01/21/20 04:15 105/55 92 01/21/20 04:00 106/55 93 01/21/20 03:45 107/53 93 01/21/20 03:30 107/56 92 01/21/20 03:15 110/53 93 01/21/20 03:10 135/74 95 01/21/20 03:00 110/62 91 01/21/20 02:45 111/58 93 01/21/20 02:30 112/57 92 20 02:15 115/58 92 01/21/20 02:00 109/57 92 20 01:45 107/56 92 01/21/20 01:30 109/55 93 01/21/20 01:15 113/60 93 01/21/20 01:00 120/66 92 20 00:45 119/60 93 20 00:30 114/62 93 01/21/20 00:15 128/69 94 01/21/20 00:00 137/76 94 1620 23:46 071620 23:45 117/66 95 0716/20 23:35 142/58 95 0716/20 23:31 104/56 94 0716/20 23:30 95 071620 23:15 104/56 94 0716/20 23:00 96/48 94 07/16/20 22:45 98/50 94 0716/20 22:30 97/49 94 07/16/20 22:15 96/50 93 071620 22:00 96/49 93 071620 21:45 96/50 92 07/16/20 21:30 95/48 94 01/20/20 21:15 94/48 94 01/20/20 21:00 101/48 94 01/20/20 20:45 110/45 94 01/20/20 20:31 140/55 100 01/20/20 20:26 01/20/20 20:15 104/53 93 01/20/20 20:00 105/53 93 01/20/20 19:45 105/54 93 01/20/20 19:30 106/55 94 01/20/20 19:15 106/53 94 01/20/20 19:01 106/55 95 01/20/20 19:00 106/55 93 01/20/20 18:45 104/52 93 01/20/20 18:30 106/55 92 01/20/20 18:15 106/48 94 01/20/20 18:01 113/50 94 01/20/20 17:45 120/58 95 01/20/20 17:30 136/63 94 01/20/20 17:15 134/61 94 01/20/20 17:00 143/73 92 01/20/20 16:53 134/61 92 01/20/20 16:45 134/61 93 01/20/20 16:30 132/63 95 01/20/20 16:15 143/69 01/20/20 16:00 143/69 96 01/20/20 15:46 132/54 98 01/20/20 15:30 102/60 98 01/20/20 15:15 102/60 97 01/20/20 15:00 114/60 96 01/20/20 14:45 98/56 95 01/20/20 14:30 99/57 95 01/20/20 14:15 97/58 97 01/20/20 14:00 107/50 92 01/20/20 13:50 01/20/20 13:45 100/47 92 - Physical Examination General: Other (Sedated, with a trach on the vent) HEENT: Positive: PERRL Neck: Positive: neck supple, Other (vent to trach) Cardiac: Positive: Reg Rate and Rhythm Lungs: Positive: Decreased Breath Sounds Neuro: Positive: Other (Sedated, with a trach on the vent) Abdomen: Positive: Soft Skin: Positive: Clear Extremities: Absent: edema - Allied health notes Allied health notes reviewed: RT
[2020-01-21 13:43] LABS: Hematocrit 25.5 % (35.5-45.6); Hemoglobin 7.5 gm/dl (11.8-15.2)
[2020-01-21 14:02] LABS: Alanine Aminotransferase 29 units/L (7-56); Albumin 2.7 g/dL (3.9-5); BUN/Creatinine Ratio 12; Blood Urea Nitrogen 14 mg/dL (9-20); Calcium 9.8 mg/dL (8.4-10.2); Hemolysis Index 11
[2020-01-21 14:18] LABS: Hypochromasia 2+; Stomatocytes 1+; Total Cells Counted 100
[2020-01-21 14:19] LABS: Platelet Estimate Consistent w Auto
--- NOTE | 2020-01-21 20:45 | Progress Note ---
Assessment and Plan Assessment and plan: --COVID-19 negative x2 --Acute hypoxic respiratory failure; status post trach and PEG On vent, continue current management, pulmonary critical following --Sepsis with septic shock; requiring vasopressors Mild improvement, monitor off vasopressors Supportive care --Bilateral pneumonia;Completed antibiotics, monitor off antibiotics, Ventilatory support --Acute kidney injury/ATN; Resolved, avoid nephrotoxins --Obesity; BMI 33.1 Patient needs weight reduction when medically stable --Sinus bradycardia; present on admission Now resolved, heart rate in 70s, Cardiology following --Hypothyroidism; continue Synthroid --History of congestive heart failure --DVT prophylaxis Discharge planning per case management; CM assisting with LTAC placement Plan of care reviewed with the patient's nurse Nurse Administrator recommendations noted and appreciated Critical care time 32 minutes 01/18/20; patient underwent trach and PEG today, tolerated the procedure well 01/19/20; started on PEG feeds, tolerated well, awaiting LTAC/SNF placement 01/20/20; clinically stable, pending placement The high probability of a clinically significant, sudden or life threatening deterioration of the [renal, respiratory and cardiac] system(s) required my full and direct attention, intervention and personal management. The aggregate critical care time was [32] minutes. This time is in addition to time spent performing reported procedures but includes the following: [x] Data Review and interpretation [x] Patient assessment and monitoring of vital signs [x] Documentation [x] Medication orders and management History Interval history: Patient seen and examined at the bedside in ICU this morning Patient's chart and medications reviewed Trach and PEG. On vent Vital signs reviewed Hospitalist Physical - Constitutional Vitals: Temp Pulse Resp BP Pulse Ox 100.3 F H 91 H 14 110/58 96 01/21/20 20:00 01/21/20 20:10 01/21/20 18:00 01/21/20 20:10 01/21/20 20:10 General appearance: Present: mild distress, well-nourished, obese, other (Tracheostomy on vent) - EENT Eyes: Present: PERRL, EOM intact - Neck Neck: Present: supple, normal ROM - Respiratory Respiratory effort: normal Respiratory: bilateral: diminished, rhonchi, negative: rales, wheezing - Cardiovascular Rhythm: regular Heart Sounds: Present: S1 & S2 - Extremities Extremities: no ischemia, No edema - Abdominal General gastrointestinal: soft, non-tender, non-distended, normal bowel sounds - Integumentary Integumentary: Present: clear, warm - Psychiatric Psychiatric: other (On vent) - Neurologic Neurologic: other (Tracheostomy on vent) HEART Score - HEART Score Troponin: Troponin T 0.011 ng/mL (0.00-0.029) 12/18/19 14:45 Results - Labs CBC & Chem 7: 01/21/20 13:01 01/21/20 13:01 Labs: Laboratory Last Values WBC 10.5 K/mm3 (4.5-11.0) 01/21/20 13:01 RBC 3.06 M/mm3 (3.65-5.03) L 01/21/20 13:01 Hgb 7.5 gm/dl (11.8-15.2) L 01/21/20 13:01 Hct 25.5 % (35.5-45.6) L 01/21/20 13:01 MCV 83 fl (84-94) L 01/21/20 13:01 MCH 24 pg (28-32) L 01/21/20 13:01 MCHC 29 % (32-34) L 01/21/20 13:01 RDW 22.0 % (13.2-15.2) H 01/21/20 13:01 Plt Count 307 K/mm3 (140-440) 01/21/20 13:01 Lymph % (Auto) 10.3 % (13.4-35.0) L 01/19/20 05:45 [place] % (Auto) Shoe Cutter 01/21/20 13:01 Eos % (Auto) 7.9 % (0.0-4.3) H 01/19/20 05:45 Baso % (Auto) 0.6 % (0.0-1.8) 01/19/20 05:45 Lymph # 0.8 K/mm3 (1.2-5.4) L 01/19/20 05:45 [place] # 1.0 K/mm3 (0.0-0.8) H 01/19/20 05:45 Eos # 0.6 K/mm3 (0.0-0.4) H 01/19/20 05:45 Baso # 0.0 K/mm3 (0.0-0.1) 01/19/20 05:45 Add Manual Diff Complete 01/21/20 13:01 Total Counted 100 01/21/20 13:01 Seg Neutrophils % 68.2 % (40.0-70.0) 01/19/20 05:45 Seg Neuts % (Manual) 66.0 % (40.0-70.0) 01/21/20 13:01 Band Neutrophils % 0 % 01/21/20 13:01 Lymphocytes % (Manual) 21.0 % (13.4-35.0) 01/21/20 13:01 Reactive Lymphs % (Man) 0 % 01/21/20 13:01 Monocytes % (Manual) 8.0 % (0.0-7.3) H 01/21/20 13:01 Eosinophils % (Manual) 4.0 % (0.0-4.3) 01/21/20 13:01 Basophils % (Manual) 1.0 % (0.0-1.8) 01/21/20 13:01 Metamyelocytes % 0 % 01/21/20 13:01 Myelocytes % 0 % 01/21/20 13:01 Promyelocytes % 0 % 01/21/20 13:01 Blast Cells % 0 % 01/21/20 13:01 Nucleated RBC % Not Reportable 01/21/20 13:01 Seg Neutrophils # 5.3 K/mm3 (1.8-7.7) 01/19/20 05:45 Seg Neutrophils # Man 6.9 K/mm3 (1.8-7.7) 01/21/20 13:01 Band Neutrophils # 0.0 K/mm3 01/21/20 13:01 Lymphocytes # (Manual) 2.2 K/mm3 (1.2-5.4) 01/21/20 13:01 Abs React Lymphs (Man) 0.0 K/mm3 01/21/20 13:01 Monocytes # (Manual) 0.8 K/mm3 (0.0-0.8) 01/21/20 13:01 Eosinophils # (Manual) 0.4 K/mm3 (0.0-0.4) 01/21/20 13:01 Basophils # (Manual) 0.1 K/mm3 (0.0-0.1) 01/21/20 13:01 Metamyelocytes # 0.0 K/mm3 01/21/20 13:01 Myelocytes # 0.0 K/mm3 01/21/20 13:01 Promyelocytes # 0.0 K/mm3 01/21/20 13:01 Blast Cells # 0.0 K/mm3 01/21/20 13:01 WBC Morphology Not Reportable 01/21/20 13:01 Hypersegmented Neuts Not Reportable 01/21/20 13:01 Hyposegmented Neuts Not Reportable 01/21/20 13:01 Hypogranular Neuts Not Reportable 01/21/20 13:01 Smudge Cells Not Reportable 01/21/20 13:01 Toxic Granulation Not Reportable 01/21/20 13:01 Toxic Vacuolation Not Reportable 01/21/20 13:01 Dohle Bodies Not Reportable 01/21/20 13:01 Pelger-Huet Anomaly Not Reportable 01/21/20 13:01 Mervin Rods Not Reportable 01/21/20 13:01 Platelet Estimate Consistent w auto 01/21/20 13:01 Clumped Platelets Not Reportable 01/21/20 13:01 Plt Clumps, EDTA Not Reportable 01/21/20 13:01 Large Platelets Not Reportable 01/21/20 13:01 Giant Platelets Not Reportable 01/21/20 13:01 Platelet Satelliting Not Reportable 01/21/20 13:01 Plt Morphology Comment Not Reportable 01/21/20 13:01 RBC Morphology Not Reportable 01/21/20 13:01 Dimorphic RBCs Not Reportable 01/21/20 13:01 Polychromasia Not Reportable 01/21/20 13:01 Hypochromasia 2+ 01/21/20 13:01 Poikilocytosis Not Reportable 01/21/20 13:01 Anisocytosis Not Reportable 01/21/20 13:01 Microcytosis Not Reportable 01/21/20 13:01 Macrocytosis Not Reportable 01/21/20 13:01 Spherocytes Not Reportable 01/21/20 13:01 Pappenheimer Bodies Not Reportable 01/21/20 13:01 Sickle Cells Not Reportable 01/21/20 13:01 Target Cells Not Reportable 01/21/20 13:01 Tear Drop Cells Not Reportable 01/21/20 13:01 Ovalocytes Not Reportable 01/21/20 13:01 Stomatocytes 1+ 01/21/20 13:01 Helmet Cells Not Reportable 01/21/20 13:01 Brink-Pixley Bodies Not Reportable 01/21/20 13:01 [place] Rings Not Reportable 01/21/20 13:01 Ileana Cells Not Reportable 01/21/20 13:01 Bite Cells Not Reportable 01/21/20 13:01 Crenated Cell Not Reportable 01/21/20 13:01 Elliptocytes Not Reportable 01/21/20 13:01 Acanthocytes (Spur) Not Reportable 01/21/20 13:01 Rouleaux Not Reportable 01/21/20 13:01 Hemoglobin C Crystals Not Reportable 01/21/20 13:01 Schistocytes Not Reportable 01/21/20 13:01 Malaria parasites Not Reportable 01/21/20 13:01 Gianni Bodies Not Reportable 01/21/20 13:01 Hem Pathologist Commnt No 01/21/20 13:01 PT 13.3 Sec. (12.2-14.9) 01/18/20 04:45 INR 1.03 (0.87-1.13) 01/18/20 04:45 APTT 29.4 Sec. (24.2-36.6) 12/18/19 14:45 D-Dimer 534.45 ng/mlDDU (0-234) H 12/18/19 14:45 ABG pH 7.223 pH Units (7.350-7.450) L 01/13/20 15:10 ABG pCO2 82.3 mm Hg 01/13/20 15:10 ABG pO2 81.4 mm Hg (80.0-90.0) 01/13/20 15:10 ABG HCO3 33.1 mmol/L (20.0-26.0) H 01/13/20 15:10 ABG O2 Saturation 94.7 % (95.0-99.0) L 01/13/20 15:10 ABG O2 Content 11.2 (0.0-44) 01/13/20 15:10 ABG Base Excess 4.2 mmol/L (-2.0-3.0) H 01/13/20 15:10 ABG Hemoglobin 8.5 gm/dl (14.0-18.0) L 01/13/20 15:10 ABG Carboxyhemoglobin 2.0 % (0.0-5.0) 01/13/20 15:10 ABG Methemoglobin 0.7 % (0.0-1.5) 01/13/20 15:10 Oxyhemoglobin 92.1 % (95.0-99.0) L 01/13/20 15:10 FiO2 50 % 01/13/20 15:10 Sodium 151 mmol/L (137-145) H 01/21/20 13:01 Potassium 4.6 mmol/L (3.6-5.0) 01/21/20 13:01 Chloride 102.3 mmol/L (98-107) 01/21/20 13:01 Carbon Dioxide 39 mmol/L (22-30) H 01/21/20 13:01 Anion Gap 14 mmol/L 01/21/20 13:01 BUN 14 mg/dL (9-20) 01/21/20 13:01 Creatinine 1.2 mg/dL (0.8-1.5) 01/21/20 13:01 Estimated GFR > 60 ml/min 01/21/20 13:01 BUN/Creatinine Ratio 12 % 01/21/20 13:01 Glucose 122 mg/dL (75-100) H 01/21/20 13:01 POC Glucose 198 (70-105) H 01/21/20 18:37 Lactic Acid 1.70 mmol/L (0.7-2.0) 12/30/19 05:06 Calcium 9.8 mg/dL (8.4-10.2) 01/21/20 13:01 Phosphorus 3.70 mg/dL (2.5-4.5) 12/27/19 03:48 Magnesium 2.60 mg/dL (1.7-2.3) H 12/30/19 05:06 Ferritin 83.4 ng/mL (13.0-400.0) 12/18/19 14:45 Total Bilirubin 0.20 mg/dL (0.1-1.2) 01/21/20 13:01 AST 25 units/L (5-40) 01/21/20 13:01 ALT 29 units/L (7-56) 01/21/20 13:01 Alkaline Phosphatase 87 units/L (35-129) 01/21/20 13:01 Ammonia 39.0 umol/L (25-60) 12/18/19 14:45 Lactate Dehydrogenase 235 units/L (91-180) H 12/18/19 14:45 Lactate Dehydrogenase 236 units/L (91-180) H 12/18/19 14:45 Total Creatine Kinase 40 units/L (55-170) L 12/18/19 14:45 Troponin T 0.011 ng/mL (0.00-0.029) 12/18/19 14:45 C-Reactive Protein 8.40 mg/dL (0.00-1.30) H 12/18/19 14:45 C-Reactive Protein 8.50 mg/dL (0.00-1.30) H 12/18/19 14:45 Total Protein 6.5 g/dL (6.3-8.2) 01/21/20 13:01 Albumin 2.7 g/dL (3.9-5) L 01/21/20 13:01 Albumin/Globulin Ratio 0.7 % 01/21/20 13:01 Procalcitonin 0.22 ng/mL (<0.15) 12/18/19 14:45 TSH 1.460 mlU/mL (0.270-4.200) 01/13/20 20:37 Free T4 0.63 ng/dL (0.76-1.46) L 01/13/20 20:37 Urine Color Yellow (Yellow) 12/19/19 16:50 Urine Turbidity Clear (Clear) 12/19/19 16:50 Urine pH 5.0 (5.0-7.0) 12/19/19 16:50 Ur Specific [place] 1.010 (1.003-1.030) 12/19/19 16:50 Urine Protein <15 mg/dl mg/dL (Negative) 12/19/19 16:50 Urine Glucose (UA) 150 mg/dL (Negative) 12/19/19 16:50 Urine Ketones Neg mg/dL (Negative) 12/19/19 16:50 Urine Blood Neg (Negative) 12/19/19 16:50 Urine Nitrite Neg (Negative) 12/19/19 16:50 Urine Bilirubin Neg (Negative) 12/19/19 16:50 Urine Urobilinogen < 2.0 mg/dL (<2.0) 12/19/19 16:50 Ur Leukocyte Esterase Tr (Negative) 12/19/19 16:50 Urine WBC (Auto) 7.0 /HPF (0.0-6.0) H 12/19/19 16:50 Urine RBC (Auto) 4.0 /HPF (0.0-6.0) 12/19/19 16:50 U Epithel Cells (Auto) 1.0 /HPF (0-13.0) 12/19/19 16:50 Urine Bacteria (Auto) 1+ /HPF (Negative) 12/19/19 16:50 Urine Mucus Few /HPF 12/19/19 16:50 Urine Osmolality 140 Mosm/kg 12/25/19 16:45 Urine Creatinine < 4.2 mg/dL (0.1-20.0) 12/25/19 16:45 Urine Sodium 10 mmol/L 12/25/19 16:45 Urine Total Protein < 4 mg/dL (5-11.8) L 12/25/19 16:45 Digoxin 0.3 ng/mL (0.9-2.0) L 12/18/19 14:45 Salicylates < 0.3 mg/dL (2.8-20.0) L 12/18/19 14:45 Acetaminophen < 5.0 ug/mL (10.0-30.0) L 12/18/19 14:45 Plasma/Serum Alcohol < 0.01 % (0-0.07) 12/18/19 14:45 Coronavirus (PCR) Negative (Negative) 12/21/19 14:45 AFB Identification 01/05/20 09:05 Fungal Id Prelim 01/05/20 09:05 Blood Type A POSITIVE 01/18/20 04:45 Antibody Screen Negative 01/18/20 04:45 - Diagnostic Impressions Diagnostic Impressions: Echocardiogram 12/28/19 14:07 Transthoracic Echocardiogram Indication: SOB BP: 95/51 HR: 99 Conclusions *The left ventricular chamber size is mildly dilated. *There is no left ventricular hypertrophy. *Global left ventricular systolic function is mildly decreased. *The estimated ejection fraction is 45-50%. *Abnormal left ventricular diastolic filling is observed, consistent with impaired relaxation. *The right ventricular global systolic function is mildly reduced. *The right ventricular systolic pressure is calculated at 53 mmHg. Findings Left Ventricle: The left ventricular chamber size is mildly dilated. There is no left ventricular hypertrophy. Global left ventricular systolic function is mildly decreased. The estimated ejection fraction is 45-50%. Abnormal left ventricular diastolic filling is observed, consistent with impaired relaxation. Left Atrium: The left atrial chamber size is normal. Right Ventricle: The right ventricular cavity size is normal. The right ventricular global systolic function is mildly reduced. Right Atrium: The right atrial cavity size is normal. Aortic Valve: The aortic valve leaflets are mildly thickened. There is no evidence of aortic regurgitation. Mitral Valve: The mitral valve leaflets are mildly thickened. There is no evidence of mitral regurgitation. Tricuspid Valve: The tricuspid valve leaflets are normal. There is mild tricuspid regurgitation. The right ventricular systolic pressure is calculated at 53 mmHg. Pulmonic Valve: The pulmonic valve appears normal. There is trace pulmonic regurgitation. Pericardium: There is no pericardial effusion. Aorta: The aorta appears normal. Venous: The inferior vena cava is dilated. Measurements Chambers 2D Name Value Normal Range IVSd (2D) 1.08 cm (0.6 - 1.1) LVPWd (2D) 1 cm (0.6 - 1.1) LVIDd (2D) 4.67 cm (3.7 - 5.6) LVIDs (2D) 3.89 cm (2 - 3.8) LV FS (2D) 16.76 % - EF Teichholz (2D) 35.14 % - Ao root diameter (2D) 2.86 cm (2 - 3.7) Volumes/Mass Name Value Normal Range LA ESV SP 4CH (A/L) 31.8 ml - LA ESV SP 2CH (A/L) 27.37 ml - LA ESV BP (A/L) 33.43 ml - LA ESV BP (A/L) index 14.11 ml/m2 - LA ESV SP 4CH (MOD) 26.83 ml - LA ESV SP 2CH (MOD) 29.59 ml - LA ESV BP (MOD) 30.47 ml - LA ESV BP (MOD) index 12.86 ml/m2 - Diastolic/Systolic Function Name Value Normal Range MV E-wave Vmax 0.39 m/sec - MV deceleration time 115.69 msec - MV A-wave Vmax 0.63 m/sec - MV E:A ratio 0.62 ratio - Aortic Valve Name Value Normal Range AV Vmax 1.14 m/sec - AV VTI 20.1 cm - AV peak gradient 5.17 mmHg - AV mean gradient 3.89 mmHg - LVOT diameter 2.02 cm - LVOT Vmax 0.99 m/sec - LVOT VTI 16.45 cm - LVOT peak gradient 3.95 mmHg - LVOT mean gradient 2.45 mmHg - SV LVOT 52.45 ml - RALPH (continuity Vmax) 2.78 cm2 - RALPH (continuity VTI) 2.61 cm2 - Tricuspid Valve Name Value Normal Range TR Vmax 3.36 m/sec - TR peak gradient 45 mmHg - RAP 8 mmHg - RVSP 53 mmHg - IVC diameter 2.33 cm (1.2 - 2.3) Pulmonic Valve/Qp:Qs Name Value Normal Range PV Vmax 0.89 m/sec - PV peak gradient 3.16 mmHg - SD end-diastolic Vmax 1.42 m/sec - PV acceleration time 79.92 msec - Sykes/IV: Voiding Method Condom Catheter IV Catheter Type [Right Upper PICC Line arm] IV Catheter Type [Right Leg] Intra-osseous IV Catheter Type [Right Wrist] Peripheral IV IV Catheter Type [Right Hand] INT / Saline Lock IV Catheter Type [Left Hand] INT / Saline Lock IV Catheter Type [Left Forearm INT / Saline Lock ] IV Catheter Type [Left Triple Lumen Cath Internal Jugular] Active Medications - Current Medications Current Medications: Generic Name Dose Route Start Last Admin Trade Name Freq PRN Reason Stop Dose Admin Acetaminophen 650 mg 12/29/19 09:21 01/03/20 18:31 Tylenol PO 650 mg Q4H PRN Administration Non Cardiac Pain or Temp>100.5 Albuterol/Ipratropium 1 ampul 12/18/19 14:00 01/21/20 20:06 Duoneb *Not For Prn Use* IH 1 ampul TIDRT SHANEL Administration Lipase/Protease/Amylase 1 each 12/19/19 08:29 Erendira Cabrera 10,500 Unit FEEDTUBE PRN PRN For Clogged Feeding Tube Atropine Sulfate 1 mg 01/09/20 13:50 01/10/20 18:00 Atropine 0.1% (Cardiac) IV 1 mg PRN PRN Administration Bradycardia Bisacodyl 10 mg 01/02/20 15:48 01/02/20 18:25 Dulcolax SD 10 mg QDAY PRN Administration Constipation Dextrose 50 ml 01/18/20 08:22 01/18/20 09:17 D50w (25gm) Syringe IV 50 ml Q30MIN PRN Administration Hypoglycemia Protocol Docusate Sodium 100 mg 01/01/20 22:00 01/21/20 10:02 Colace PO 100 mg BID SHANEL Administration Famotidine 20 mg 12/20/19 10:00 01/21/20 10:02 Pepcid PO 20 mg BID SHANEL Administration Fentanyl 50 mcg 12/27/19 16:57 01/19/20 22:00 Sublimaze IV 50 mcg Q10MIN PRN Administration ANALGESIA Hydrophilic Ointment 1 applic 12/18/19 12:35 Vaseline Lip Therapy TP Q2HR PRN Dry Lips Fentanyl Citrate 2,000 mcg in 100 mls @ 5.85 mls/hr 12/27/19 17:00 01/21/20 16:27 Fentanyl Drip Premix IV 3 mcg/kg/hr TITR SHANEL 17.55 mls/hr Administration Protocol 1 MCG/KG/HR Norepinephrine 4 mg in 250 mls @ 7.5 mls/hr 12/28/19 15:00 01/21/20 00:23 Levophed Drip 4 Mg/Ns 250 Ml IV 0 mcg/min TITR SHANEL 0 mls/hr Titration Protocol 2 MCG/MIN Vasopressin 20 unit/ Sodium 101 mls @ 9.09 mls/hr 12/30/19 12:30 01/01/20 13:44 Chloride IV 0 units/min TITR SHANEL 0 mls/hr Titration Protocol 0.03 UNITS/MIN Dopamine HCl/Dextrose 800 mg in 250 mls @ 4.388 mls/hr 12/31/19 16:00 01/20/20 07:55 Intropin Drip 800 Mg/D5w 250 Ml IV 0 mcg/kg/min TITR SHANEL 0 mls/hr Titration Protocol 2 MCG/KG/MIN Insulin Glargine 15 units 01/10/20 14:00 01/21/20 10:03 Lantus SUB-Q 15 units BID SHANEL Administration Insulin Human Lispro 0 unit 01/20/20 18:00 01/21/20 19:06 Humalog SUB-Q 3 unit Q6HR SHANEL Administration Protocol Levothyroxine Sodium 88 mcg 12/19/19 06:00 01/21/20 10:07 Synthroid PO 88 mcg QAM@0600 SHANEL Administration Multi-Ingred Cream/Lotion/Oil/Oint 1 applic 12/18/19 12:35 Artificial Tears Ophth Oint OU Q4HR PRN Dry Eye(s) Polyethylene Glycol 17 gm 01/01/20 22:00 01/20/20 23:22 Miralax 3350 PO 17 gm QHS SHANEL Administration Simple Syrup 15 ml 12/19/19 08:29 01/06/20 04:58 Simple Syrup FEEDTUBE 15 ml PRN PRN Administration Hypoglycemia Simple Syrup 30 ml 12/19/19 08:29 Simple Syrup FEEDTUBE PRN PRN Hypoglycemia Sodium Bicarbonate 325 mg 12/19/19 08:29 Sodium Bicarbonate FEEDTUBE PRN PRN For Clogged Feeding Tube Sodium Chloride 10 ml 12/18/19 22:00 01/21/20 12:04 Sodium Chloride Flush Syringe 10 Ml IV 10 ml BID SHANEL Administration Sodium Chloride 10 ml 12/18/19 13:31 Sodium Chloride Flush Syringe 10 Ml IV PRN PRN LINE FLUSH Nutrition/Malnutrition Assess - Dietary Evaluation Nutrition/Malnutrition Findings: Nutrition Notes Start: 12/19/19 08:16 Freq: Status: Active Protocol: Document 01/20/20 11:39 LM (Rec: 01/20/20 11:42 LM [id number]) Nutrition Notes Initial or Follow up Reassessment Current Diagnosis Diabetes,Sepsis,Hypertension, Heart Failure,Respiratory Failure Other Pertinent Diagnosis COVID-19 (-), pneu Current Diet Vital AF 1.2 at 65ml/hr Labs/Tests POC glu 163 7/15 Na 144 Pertinent Medications Lantus Height 6 ft 2 in Weight 118.5 kg Hasty Body Weight (kg) 86.36 BMI 33.5 Weight change and time frame Wt change noted Subjective/Other Information Vital running at 65 ml/hr and pt is tolerating TF. Percent of energy/protein needs met: 93%/68% Burn Absent Trauma Absent Current % PO Negligible Minimum of two criteria No physical signs of malnutrition #1 Nutrition Diagnosis Inadequate oral intake Diagnosis Progress(for reassessment Continues documentation) Is patient on ventilator? Yes Is Patient Ambulatory and/or Out of Bed No REE-([facility]-confined to bed) 2487.948 Kcal/Kg value to use for calculation 17 Approximate Energy Requirements Using 2015 kcal/Kg Calculation Used for Recommendations Kcal/kg Additional Notes Protein: 172g (>/=2g/kg using IBW 86kg) Fluid 1ml/kcal Nutrition Intervention Change Diet Order: TF Nutrition Support: Vital AF 1.2 at 65ml/hr Flush 250ml q4h for hypernatremia Flush 100ml q4h Kcal 1,872 Protein (gm) 117 Fluid (mL) 1,265 Goal #1 TF tolerance Goal #2 Meet at least 75% of energy and protein needs Anticipated Discharge Needs: unable to determine at this time Follow-Up By: 01/25/20 Additional Comments Follow for TF tolerance and Na levels
[2020-01-21] MEDS: POLYETHYLENE GLYCOL 3350 17 GM POWDER PO SCH (22:20)
[2020-01-22] MEDS: INSULIN LISPRO 100 UNIT/ML SUB-Q SCH ×4 (01:46→20:00)
[2020-01-22 05:44] LABS: ABG Base Excess 14.6 mmol/L (-2.0-3.0); ABG HCO3 41.5 mmol/L (20.0-26.0); ABG Methemoglobin 0.5 % (0.0-1.5); ABG PCO2 71.2 mm Hg; ABG PH 7.383 pH Units (7.350-7.450); ABG PO2 174.7 mm Hg (80.0-90.0)
[2020-01-22] MEDS: LEVOTHYROXINE 88 MCG TAB PO SCH (06:48)
[2020-01-22] MEDS: IPRATROPIUM/ALBUTEROL SULFATE 3 ML AMPUL.NEB IH SCH ×3 (07:38→21:24)
--- NOTE | 2020-01-22 09:40 | Progress Note ---
Assessment and Plan Sinus bradycardia - resolved echo: LVEF 35-40% TSH 2.3 Pneumonia negative COVID PCR x 2 Acute Respiratory failure s/p trach Acute kidney injury - resolved Positive MRSA - sputum Anemia Recommendations: Conservative cardiac management. Subjective Date of service: 01/22/20 Principal diagnosis: Ac. Hypoxemic Resp Failure; Septic Shock; Magdiel. PNA; PUI COVID-19; CHF; JOE Interval history: Patient continues to be ventilated through trach No cardiac events on tele Objective Vital Signs Temp Pulse Pulse Pulse Resp Resp Resp 01/22/20 08:15 102 H 20 01/22/20 08:00 98.9 F 100 H 103 H 20 01/22/20 07:45 98 H 20 01/22/20 07:37 01/22/20 07:36 100 H 20 01/22/20 07:31 97 H 01/22/20 07:30 97 H 20 01/22/20 07:15 92 H 14 01/22/20 07:00 93 H 14 01/22/20 06:45 93 H 14 01/22/20 06:30 96 H 14 01/22/20 06:15 96 H 14 01/22/20 06:00 95 H 14 01/22/20 05:45 95 H 14 01/22/20 05:30 94 H 14 01/22/20 05:15 96 H 14 01/22/20 05:00 95 H 14 01/22/20 04:58 93 H 01/22/20 04:45 94 H 14 01/22/20 04:30 98 H 14 01/22/20 04:15 98 H 14 01/22/20 04:00 98 H 96 H 14 01/22/20 03:45 96 H 14 01/22/20 03:39 99.9 F H 01/22/20 03:30 95 H 14 01/22/20 03:15 95 H 14 01/22/20 03:00 94 H 14 01/22/20 02:45 97 H 14 01/22/20 02:30 96 H 14 01/22/20 02:15 96 H 14 01/22/20 02:00 96 H 14 01/22/20 01:45 96 H 14 01/22/20 01:30 94 H 14 01/22/20 01:15 93 H 14 01/22/20 01:00 94 H 14 01/22/20 00:45 95 H 14 01/22/20 00:30 92 H 14 01/22/20 00:15 106 H 20 01/22/20 00:00 97 H 92 H 14 01/21/20 23:45 100.3 F H 92 H 14 01/21/20 23:30 95 H 14 01/21/20 23:15 94 H 14 01/21/20 23:00 96 H 14 01/21/20 22:45 90 14 01/21/20 22:30 92 H 14 01/21/20 22:15 90 15 01/21/20 22:00 93 H 14 14 01/21/20 21:45 93 H 15 01/21/20 21:30 93 H 14 01/21/20 21:15 94 H 14 01/21/20 21:00 92 H 14 01/21/20 20:45 90 14 01/21/20 20:30 89 14 01/21/20 20:15 92 H 14 01/21/20 20:10 91 H 01/21/20 20:06 79 14 01/21/20 20:00 100.3 F H 91 H 92 H 14 01/21/20 19:45 89 14 01/21/20 19:30 91 H 14 01/21/20 19:15 90 14 01/21/20 19:00 100 H 15 01/21/20 18:45 95 H 14 01/21/20 18:30 96 H 14 01/21/20 18:15 94 H 14 01/21/20 18:00 93 H 14 01/21/20 17:45 91 H 14 01/21/20 17:30 92 H 14 01/21/20 17:15 90 14 01/21/20 17:00 92 H 33 H 01/21/20 16:45 86 26 H 01/21/20 16:30 73 24 01/21/20 16:15 85 22 01/21/20 16:00 99.3 F 83 83 29 H 01/21/20 15:45 80 19 01/21/20 15:30 85 25 H 01/21/20 15:15 82 23 01/21/20 15:00 89 22 01/21/20 14:45 84 17 01/21/20 14:30 82 17 01/21/20 14:15 90 21 01/21/20 14:00 93 H 27 H 01/21/20 13:45 99 H 25 H 01/21/20 13:30 95 H 17 01/21/20 13:15 99 H 25 H 01/21/20 13:00 90 25 H 01/21/20 12:45 91 H 27 H 01/21/20 12:30 91 H 26 H 01/21/20 12:15 92 H 27 H 01/21/20 12:00 99.7 F H 84 20 01/21/20 11:45 105 H 14 01/21/20 11:30 104 H 14 01/21/20 11:15 106 H 14 01/21/20 11:00 103 H 16 01/21/20 10:45 104 H 18 01/21/20 10:30 97 H 14 01/21/20 10:15 95 H 14 01/21/20 10:00 98 H 14 14 01/21/20 09:45 98 H 14 BP Pulse Ox Pulse Ox 01/22/20 08:15 124/72 98 01/22/20 08:00 124/66 95 01/22/20 07:45 117/70 93 01/22/20 07:37 95 01/22/20 07:36 01/22/20 07:31 121/72 95 01/22/20 07:30 121/72 98 01/22/20 07:15 121/68 95 01/22/20 07:00 115/70 95 01/22/20 06:45 123/69 96 01/22/20 06:30 123/70 97 01/22/20 06:15 115/70 96 01/22/20 06:00 123/72 96 01/22/20 05:45 122/68 95 01/22/20 05:30 115/66 95 01/22/20 05:15 124/70 95 01/22/20 05:00 131/70 95 01/22/20 04:58 131/70 95 01/22/20 04:45 138/69 98 18 04:30 138/69 99 01/22/20 04:15 128/71 97 01/22/20 04:00 134/73 97 01/22/20 03:45 126/72 98 01/22/20 03:39 01/22/20 03:30 118/72 97 07/18/20 03:15 113/66 96 07/18/20 03:00 117/63 95 07/18/20 02:45 115/70 97 07/18/20 02:30 119/66 97 18/20 02:15 116/63 96 0718/20 02:00 117/64 96 /18/20 01:45 114/68 96 07/18/20 01:30 121/66 97 07/18/20 01:15 124/67 97 18/20 01:00 125/68 96 0718/20 00:45 123/67 96 /18/20 00:30 122/66 98 07/18/20 00:15 115/68 97 18/20 00:00 122/66 98 17/20 23:45 114/64 95 17/20 23:30 118/64 95 /17/20 23:15 114/62 95 07/17/20 23:00 114/64 95 /17/20 22:45 107/61 96 17/20 22:30 111/61 95 17/20 22:15 112/70 97 /17/20 22:00 115/73 96 07/17/20 21:45 118/73 97 /17/20 21:30 126/69 96 /17/20 21:15 121/63 95 07/17/20 21:00 113/62 96 /17/20 20:45 111/59 95 07/17/20 20:30 106/58 95 07/17/20 20:15 116/60 96 /17/20 20:10 110/58 96 07/17/20 20:06 0717/20 20:00 110/58 95 07/17/20 19:45 117/62 95 07/17/20 19:30 109/58 95 07/17/20 19:15 109/60 95 07/17/20 19:00 117/69 95 07/17/20 18:45 116/60 95 07/17/20 18:30 117/63 95 07/17/20 18:15 111/59 95 07/17/20 18:00 109/58 95 07/17/20 17:45 106/59 94 /17/20 17:30 105/55 95 07/17/20 17:15 110/59 95 01/21/20 17:00 120/66 95 01/21/20 16:45 112/59 94 01/21/20 16:30 117/51 94 01/21/20 16:15 105/56 95 01/21/20 16:00 104/59 95 01/21/20 15:45 116/56 95 01/21/20 15:30 108/58 94 01/21/20 15:15 118/56 94 01/21/20 15:00 116/59 94 01/21/20 14:45 112/56 95 01/21/20 14:30 112/54 94 01/21/20 14:15 113/56 94 01/21/20 14:00 118/59 94 01/21/20 13:45 120/64 95 01/21/20 13:30 112/58 95 01/21/20 13:15 114/61 94 01/21/20 13:00 114/59 95 01/21/20 12:45 114/63 94 01/21/20 12:30 101/60 95 01/21/20 12:15 110/63 95 01/21/20 12:00 120/64 94 01/21/20 11:45 123/67 94 01/21/20 11:30 127/70 94 01/21/20 11:15 116/72 95 01/21/20 11:00 126/67 96 01/21/20 10:45 122/69 96 01/21/20 10:30 117/66 93 01/21/20 10:15 120/65 95 01/21/20 10:00 109/57 94 01/21/20 09:45 110/60 94 - Physical Examination General: Other (Sedated, with a trach on the vent) HEENT: Positive: PERRL Neck: Positive: neck supple, Other (vent to trach) Cardiac: Positive: Reg Rate and Rhythm Lungs: Positive: Ventilated Respirations Neuro: Positive: Other (Sedated, with a trach on the vent) Abdomen: Positive: Soft Skin: Positive: Clear Extremities: Absent: edema - Labs and Meds Cardiac Enzymes 01/21/20 Range/Units 13:01 AST 25 (5-40) units/L CBC 01/21/20 Range/Units 13:01 WBC 10.5 (4.5-11.0) K/mm3 RBC 3.06 L (3.65-5.03) M/mm3 Hgb 7.5 L (11.8-15.2) gm/dl Hct 25.5 L (35.5-45.6) % Plt Count 307 (140-440) K/mm3 Comprehensive Metabolic Panel 01/21/20 Range/Units 13:01 Sodium 151 H (137-145) mmol/L Potassium 4.6 (3.6-5.0) mmol/L Chloride 102.3 (98-107) mmol/L Carbon Dioxide 39 H (22-30) mmol/L BUN 14 (9-20) mg/dL Creatinine 1.2 (0.8-1.5) mg/dL Glucose 122 H (75-100) mg/dL Calcium 9.8 (8.4-10.2) mg/dL AST 25 (5-40) units/L ALT 29 (7-56) units/L Alkaline Phosphatase 87 (35-129) units/L Total Protein 6.5 (6.3-8.2) g/dL Albumin 2.7 L (3.9-5) g/dL - Allied health notes Allied health notes reviewed: RT
[2020-01-22] MEDS: DOCUSATE SODIUM 100 MG/10 ML ORAL LIQD PO SCH (10:27)
[2020-01-22] MEDS: INSULIN GLARGINE 100 UNITS/ML SUB-Q SCH (10:27)
[2020-01-22] MEDS: FAMOTIDINE 20 MG TAB PO SCH (10:27)
[2020-01-22] MEDS: fentaNYL DRIP Premix 2,000 MCG/100 ML BAG IV SCH ×2 (11:48→21:20)
--- NOTE | 2020-01-22 13:10 | Progress Note ---
Assessment and Plan Assessment and plan: --COVID-19 negative x2 --Acute hypoxic respiratory failure; status post trach and PEG On vent, continue tracheostomy and supportive care --Sepsis with septic shock; monitor off vasopressors Supportive care --Bilateral pneumonia;Completed antibiotics, monitor off antibiotics, Ventilatory support --Acute kidney injury/ATN; Resolved, avoid nephrotoxins --Obesity; BMI 33.1 Patient needs weight reduction when medically stable --Sinus bradycardia; present on admission Now resolved, heart rate in 70s, Cardiology following --Hypothyroidism; continue Synthroid --History of congestive heart failure --DVT prophylaxis Discharge planning per case management; CM assisting with LTAC placement Plan of care reviewed with the patient's nurse Atv Mechanic recommendations noted and appreciated Critical care time 32 minutes 01/18/20; patient underwent trach and PEG today, tolerated the procedure well 01/19/20; started on PEG feeds, tolerated well, awaiting LTAC/SNF placement 01/20/20; clinically stable, pending placement 01/22/20; monitor off pressors, awaiting LTAC placement The high probability of a clinically significant, sudden or life threatening deterioration of the [renal, respiratory and cardiac] system(s) required my full and direct attention, intervention and personal management. The aggregate critical care time was [32] minutes. This time is in addition to time spent performing reported procedures but includes the following: [x] Data Review and interpretation [x] Patient assessment and monitoring of vital signs [x] Documentation [x] Medication orders and management History Interval history: Seen and examined medical records reviewed Patient had trach and PEG, tolerating PEG feeds Awaiting LTAC/SNF placement Vital signs reviewed Hospitalist Physical - Constitutional Vitals: Temp Pulse Resp BP Pulse Ox 98.7 F 106 H 20 153/84 99 01/22/20 12:00 01/22/20 12:00 01/22/20 12:00 01/22/20 12:01/22/20 12:00 General appearance: Present: mild distress, well-nourished, obese, other (Tracheostomy on vent) - EENT Eyes: Present: PERRL, EOM intact - Neck Neck: Present: supple, normal ROM - Respiratory Respiratory effort: normal Respiratory: bilateral: diminished, negative: rales, rhonchi, wheezing - Cardiovascular Rhythm: regular Heart Sounds: Present: S1 & S2 - Extremities Extremities: no ischemia, No edema - Abdominal General gastrointestinal: soft, non-tender, non-distended, normal bowel sounds - Integumentary Integumentary: Present: clear, warm - Psychiatric Psychiatric: other (Tracheostomy on vent) - Neurologic Neurologic: other (Tracheostomy on vent) HEART Score - HEART Score Troponin: Troponin T 0.011 ng/mL (0.00-0.029) 12/18/19 14:45 Results - Labs CBC & Chem 7: 01/21/20 13:01 01/21/20 13:01 Labs: Laboratory Last Values WBC 10.5 K/mm3 (4.5-11.0) 01/21/20 13:01 RBC 3.06 M/mm3 (3.65-5.03) L 01/21/20 13:01 Hgb 7.5 gm/dl (11.8-15.2) L 01/21/20 13:01 Hct 25.5 % (35.5-45.6) L 01/21/20 13:01 MCV 83 fl (84-94) L 01/21/20 13:01 MCH 24 pg (28-32) L 01/21/20 13:01 MCHC 29 % (32-34) L 01/21/20 13:01 RDW 22.0 % (13.2-15.2) H 01/21/20 13:01 Plt Count 307 K/mm3 (140-440) 01/21/20 13:01 Lymph % (Auto) 10.3 % (13.4-35.0) L 01/19/20 05:45 [place] % (Auto) Wind Site Manager 01/21/20 13:01 Eos % (Auto) 7.9 % (0.0-4.3) H 01/19/20 05:45 Baso % (Auto) 0.6 % (0.0-1.8) 01/19/20 05:45 Lymph # 0.8 K/mm3 (1.2-5.4) L 01/19/20 05:45 Hays # 1.0 K/mm3 (0.0-0.8) H 01/19/20 05:45 Eos # 0.6 K/mm3 (0.0-0.4) H 01/19/20 05:45 Baso # 0.0 K/mm3 (0.0-0.1) 01/19/20 05:45 Add Manual Diff Complete 01/21/20 13:01 Total Counted 100 01/21/20 13:01 Seg Neutrophils % 68.2 % (40.0-70.0) 01/19/20 05:45 Seg Neuts % (Manual) 66.0 % (40.0-70.0) 01/21/20 13:01 Band Neutrophils % 0 % 01/21/20 13:01 Lymphocytes % (Manual) 21.0 % (13.4-35.0) 01/21/20 13:01 Reactive Lymphs % (Man) 0 % 01/21/20 13:01 Monocytes % (Manual) 8.0 % (0.0-7.3) H 01/21/20 13:01 Eosinophils % (Manual) 4.0 % (0.0-4.3) 01/21/20 13:01 Basophils % (Manual) 1.0 % (0.0-1.8) 01/21/20 13:01 Metamyelocytes % 0 % 01/21/20 13:01 Myelocytes % 0 % 01/21/20 13:01 Promyelocytes % 0 % 01/21/20 13:01 Blast Cells % 0 % 01/21/20 13:01 Nucleated RBC % Not Reportable 01/21/20 13:01 Seg Neutrophils # 5.3 K/mm3 (1.8-7.7) 01/19/20 05:45 Seg Neutrophils # Man 6.9 K/mm3 (1.8-7.7) 01/21/20 13:01 Band Neutrophils # 0.0 K/mm3 01/21/20 13:01 Lymphocytes # (Manual) 2.2 K/mm3 (1.2-5.4) 01/21/20 13:01 Abs React Lymphs (Man) 0.0 K/mm3 01/21/20 13:01 Monocytes # (Manual) 0.8 K/mm3 (0.0-0.8) 01/21/20 13:01 Eosinophils # (Manual) 0.4 K/mm3 (0.0-0.4) 01/21/20 13:01 Basophils # (Manual) 0.1 K/mm3 (0.0-0.1) 01/21/20 13:01 Metamyelocytes # 0.0 K/mm3 01/21/20 13:01 Myelocytes # 0.0 K/mm3 01/21/20 13:01 Promyelocytes # 0.0 K/mm3 01/21/20 13:01 Blast Cells # 0.0 K/mm3 01/21/20 13:01 WBC Morphology Not Reportable 01/21/20 13:01 Hypersegmented Neuts Not Reportable 01/21/20 13:01 Hyposegmented Neuts Not Reportable 01/21/20 13:01 Hypogranular Neuts Not Reportable 01/21/20 13:01 Smudge Cells Not Reportable 01/21/20 13:01 Toxic Granulation Not Reportable 01/21/20 13:01 Toxic Vacuolation Not Reportable 01/21/20 13:01 Dohle Bodies Not Reportable 01/21/20 13:01 Pelger-Huet Anomaly Not Reportable 01/21/20 13:01 Mervin Rods Not Reportable 01/21/20 13:01 Platelet Estimate Consistent w auto 01/21/20 13:01 Clumped Platelets Not Reportable 01/21/20 13:01 Plt Clumps, EDTA Not Reportable 01/21/20 13:01 Large Platelets Not Reportable 01/21/20 13:01 Giant Platelets Not Reportable 01/21/20 13:01 Platelet Satelliting Not Reportable 01/21/20 13:01 Plt Morphology Comment Not Reportable 01/21/20 13:01 RBC Morphology Not Reportable 01/21/20 13:01 Dimorphic RBCs Not Reportable 01/21/20 13:01 Polychromasia Not Reportable 01/21/20 13:01 Hypochromasia 2+ 01/21/20 13:01 Poikilocytosis Not Reportable 01/21/20 13:01 Anisocytosis Not Reportable 01/21/20 13:01 Microcytosis Not Reportable 01/21/20 13:01 Macrocytosis Not Reportable 01/21/20 13:01 Spherocytes Not Reportable 01/21/20 13:01 Pappenheimer Bodies Not Reportable 01/21/20 13:01 Sickle Cells Not Reportable 01/21/20 13:01 Target Cells Not Reportable 01/21/20 13:01 Tear Drop Cells Not Reportable 01/21/20 13:01 Ovalocytes Not Reportable 01/21/20 13:01 Stomatocytes 1+ 01/21/20 13:01 Helmet Cells Not Reportable 01/21/20 13:01 Brink-The Silos Bodies Not Reportable 01/21/20 13:01 Chandler Rings Not Reportable 01/21/20 13:01 Ileana Cells Not Reportable 01/21/20 13:01 Bite Cells Not Reportable 01/21/20 13:01 Crenated Cell Not Reportable 01/21/20 13:01 Elliptocytes Not Reportable 01/21/20 13:01 Acanthocytes (Spur) Not Reportable 01/21/20 13:01 Rouleaux Not Reportable 01/21/20 13:01 Hemoglobin C Crystals Not Reportable 01/21/20 13:01 Schistocytes Not Reportable 01/21/20 13:01 Malaria parasites Not Reportable 01/21/20 13:01 Gianni Bodies Not Reportable 01/21/20 13:01 Hem Pathologist Commnt No 01/21/20 13:01 PT 13.3 Sec. (12.2-14.9) 01/18/20 04:45 INR 1.03 (0.87-1.13) 01/18/20 04:45 APTT 29.4 Sec. (24.2-36.6) 12/18/19 14:45 D-Dimer 534.45 ng/mlDDU (0-234) H 12/18/19 14:45 ABG pH 7.383 pH Units (7.350-7.450) 01/22/20 04:45 ABG pCO2 71.2 mm Hg 01/22/20 04:45 ABG pO2 174.7 mm Hg (80.0-90.0) H 01/22/20 04:45 ABG HCO3 41.5 mmol/L (20.0-26.0) H 01/22/20 04:45 ABG O2 Saturation 99.0 % (95.0-99.0) 01/22/20 04:45 ABG O2 Content 10.7 (0.0-44) 01/22/20 04:45 ABG Base Excess 14.6 mmol/L (-2.0-3.0) H 01/22/20 04:45 ABG Hemoglobin 7.6 gm/dl (14.0-18.0) L 01/22/20 04:45 ABG Carboxyhemoglobin 2.2 % (0.0-5.0) 01/22/20 04:45 ABG Methemoglobin 0.5 % (0.0-1.5) 01/22/20 04:45 Oxyhemoglobin 96.3 % (95.0-99.0) 01/22/20 04:45 FiO2 40 % 01/22/20 04:45 Sodium 151 mmol/L (137-145) H 01/21/20 13:01 Potassium 4.6 mmol/L (3.6-5.0) 01/21/20 13:01 Chloride 102.3 mmol/L (98-107) 01/21/20 13:01 Carbon Dioxide 39 mmol/L (22-30) H 01/21/20 13:01 Anion Gap 14 mmol/L 01/21/20 13:01 BUN 14 mg/dL (9-20) 01/21/20 13:01 Creatinine 1.2 mg/dL (0.8-1.5) 01/21/20 13:01 Estimated GFR > 60 ml/min 01/21/20 13:01 BUN/Creatinine Ratio 12 % 01/21/20 13:01 Glucose 122 mg/dL (75-100) H 01/21/20 13:01 POC Glucose 200 (70-105) H 01/22/20 05:46 Lactic Acid 1.70 mmol/L (0.7-2.0) 12/30/19 05:06 Calcium 9.8 mg/dL (8.4-10.2) 01/21/20 13:01 Phosphorus 3.70 mg/dL (2.5-4.5) 12/27/19 03:48 Magnesium 2.60 mg/dL (1.7-2.3) H 12/30/19 05:06 Ferritin 83.4 ng/mL (13.0-400.0) 12/18/19 14:45 Total Bilirubin 0.20 mg/dL (0.1-1.2) 01/21/20 13:01 AST 25 units/L (5-40) 01/21/20 13:01 ALT 29 units/L (7-56) 01/21/20 13:01 Alkaline Phosphatase 87 units/L (35-129) 01/21/20 13:01 Ammonia 39.0 umol/L (25-60) 12/18/19 14:45 Lactate Dehydrogenase 235 units/L (91-180) H 12/18/19 14:45 Lactate Dehydrogenase 236 units/L (91-180) H 12/18/19 14:45 Total Creatine Kinase 40 units/L (55-170) L 12/18/19 14:45 Troponin T 0.011 ng/mL (0.00-0.029) 12/18/19 14:45 C-Reactive Protein 8.40 mg/dL (0.00-1.30) H 12/18/19 14:45 C-Reactive Protein 8.50 mg/dL (0.00-1.30) H 12/18/19 14:45 Total Protein 6.5 g/dL (6.3-8.2) 01/21/20 13:01 Albumin 2.7 g/dL (3.9-5) L 01/21/20 13:01 Albumin/Globulin Ratio 0.7 % 01/21/20 13:01 Procalcitonin 0.22 ng/mL (<0.15) 12/18/19 14:45 TSH 1.460 mlU/mL (0.270-4.200) 01/13/20 20:37 Free T4 0.63 ng/dL (0.76-1.46) L 01/13/20 20:37 Urine Color Yellow (Yellow) 12/19/19 16:50 Urine Turbidity Clear (Clear) 12/19/19 16:50 Urine pH 5.0 (5.0-7.0) 12/19/19 16:50 Ur Specific [place] 1.010 (1.003-1.030) 12/19/19 16:50 Urine Protein <15 mg/dl mg/dL (Negative) 12/19/19 16:50 Urine Glucose (UA) 150 mg/dL (Negative) 12/19/19 16:50 Urine Ketones Neg mg/dL (Negative) 12/19/19 16:50 Urine Blood Neg (Negative) 12/19/19 16:50 Urine Nitrite Neg (Negative) 12/19/19 16:50 Urine Bilirubin Neg (Negative) 12/19/19 16:50 Urine Urobilinogen < 2.0 mg/dL (<2.0) 12/19/19 16:50 Ur Leukocyte Esterase Tr (Negative) 12/19/19 16:50 Urine WBC (Auto) 7.0 /HPF (0.0-6.0) H 12/19/19 16:50 Urine RBC (Auto) 4.0 /HPF (0.0-6.0) 12/19/19 16:50 U Epithel Cells (Auto) 1.0 /HPF (0-13.0) 12/19/19 16:50 Urine Bacteria (Auto) 1+ /HPF (Negative) 12/19/19 16:50 Urine Mucus Few /HPF 12/19/19 16:50 Urine Osmolality 140 Mosm/kg 12/25/19 16:45 Urine Creatinine < 4.2 mg/dL (0.1-20.0) 12/25/19 16:45 Urine Sodium 10 mmol/L 12/25/19 16:45 Urine Total Protein < 4 mg/dL (5-11.8) L 12/25/19 16:45 Digoxin 0.3 ng/mL (0.9-2.0) L 12/18/19 14:45 Salicylates < 0.3 mg/dL (2.8-20.0) L 12/18/19 14:45 Acetaminophen < 5.0 ug/mL (10.0-30.0) L 12/18/19 14:45 Plasma/Serum Alcohol < 0.01 % (0-0.07) 12/18/19 14:45 Coronavirus (PCR) Negative (Negative) 12/21/19 14:45 AFB Identification 01/05/20 09:05 Fungal Id Prelim 01/05/20 09:05 Blood Type A POSITIVE 01/18/20 04:45 Antibody Screen Negative 01/18/20 04:45 - Diagnostic Impressions Diagnostic Impressions: Echocardiogram 12/28/19 14:07 Transthoracic Echocardiogram Indication: SOB BP: 95/51 HR: 99 Conclusions *The left ventricular chamber size is mildly dilated. *There is no left ventricular hypertrophy. *Global left ventricular systolic function is mildly decreased. *The estimated ejection fraction is 45-50%. *Abnormal left ventricular diastolic filling is observed, consistent with impaired relaxation. *The right ventricular global systolic function is mildly reduced. *The right ventricular systolic pressure is calculated at 53 mmHg. Findings Left Ventricle: The left ventricular chamber size is mildly dilated. There is no left ventricular hypertrophy. Global left ventricular systolic function is mildly decreased. The estimated ejection fraction is 45-50%. Abnormal left ventricular diastolic filling is observed, consistent with impaired relaxation. Left Atrium: The left atrial chamber size is normal. Right Ventricle: The right ventricular cavity size is normal. The right ventricular global systolic function is mildly reduced. Right Atrium: The right atrial cavity size is normal. Aortic Valve: The aortic valve leaflets are mildly thickened. There is no evidence of aortic regurgitation. Mitral Valve: The mitral valve leaflets are mildly thickened. There is no evidence of mitral regurgitation. Tricuspid Valve: The tricuspid valve leaflets are normal. There is mild tricuspid regurgitation. The right ventricular systolic pressure is calculated at 53 mmHg. Pulmonic Valve: The pulmonic valve appears normal. There is trace pulmonic regurgitation. Pericardium: There is no pericardial effusion. Aorta: The aorta appears normal. Venous: The inferior vena cava is dilated. Measurements Chambers 2D Name Value Normal Range IVSd (2D) 1.08 cm (0.6 - 1.1) LVPWd (2D) 1 cm (0.6 - 1.1) LVIDd (2D) 4.67 cm (3.7 - 5.6) LVIDs (2D) 3.89 cm (2 - 3.8) LV FS (2D) 16.76 % - EF Teichholz (2D) 35.14 % - Ao root diameter (2D) 2.86 cm (2 - 3.7) Volumes/Mass Name Value Normal Range LA ESV SP 4CH (A/L) 31.8 ml - LA ESV SP 2CH (A/L) 27.37 ml - LA ESV BP (A/L) 33.43 ml - LA ESV BP (A/L) index 14.11 ml/m2 - LA ESV SP 4CH (MOD) 26.83 ml - LA ESV SP 2CH (MOD) 29.59 ml - LA ESV BP (MOD) 30.47 ml - LA ESV BP (MOD) index 12.86 ml/m2 - Diastolic/Systolic Function Name Value Normal Range MV E-wave Vmax 0.39 m/sec - MV deceleration time 115.69 msec - MV A-wave Vmax 0.63 m/sec - MV E:A ratio 0.62 ratio - Aortic Valve Name Value Normal Range AV Vmax 1.14 m/sec - AV VTI 20.1 cm - AV peak gradient 5.17 mmHg - AV mean gradient 3.89 mmHg - LVOT diameter 2.02 cm - LVOT Vmax 0.99 m/sec - LVOT VTI 16.45 cm - LVOT peak gradient 3.95 mmHg - LVOT mean gradient 2.45 mmHg - SV LVOT 52.45 ml - RALPH (continuity Vmax) 2.78 cm2 - RALPH (continuity VTI) 2.61 cm2 - Tricuspid Valve Name Value Normal Range TR Vmax 3.36 m/sec - TR peak gradient 45 mmHg - RAP 8 mmHg - RVSP 53 mmHg - IVC diameter 2.33 cm (1.2 - 2.3) Pulmonic Valve/Qp:Qs Name Value Normal Range PV Vmax 0.89 m/sec - PV peak gradient 3.16 mmHg - [place] end-diastolic Vmax 1.42 m/sec - PV acceleration time 79.92 msec - Sykes/IV: Voiding Method Condom Catheter IV Catheter Type [Right Upper PICC Line arm] IV Catheter Type [Right Leg] Intra-osseous IV Catheter Type [Right Wrist] Peripheral IV IV Catheter Type [Right Hand] INT / Saline Lock IV Catheter Type [Left Hand] INT / Saline Lock IV Catheter Type [Left Forearm INT / Saline Lock ] IV Catheter Type [Left Triple Lumen Cath Internal Jugular] Active Medications - Current Medications Current Medications: Generic Name Dose Route Start Last Admin Trade Name Freq PRN Reason Stop Dose Admin Acetaminophen 650 mg 12/29/19 09:21 01/03/20 18:31 Tylenol PO 650 mg Q4H PRN Administration Non Cardiac Pain or Temp>100.5 Albuterol/Ipratropium 1 ampul 12/18/19 14:00 01/22/20 07:38 Duoneb *Not For Prn Use* IH 1 ampul TIDRT SHANEL Administration Lipase/Protease/Amylase 1 each 12/19/19 08:29 Erendira Cabrera 10,500 Unit FEEDTUBE PRN PRN For Clogged Feeding Tube Atropine Sulfate 1 mg 01/09/20 13:50 01/10/20 18:00 Atropine 0.1% (Cardiac) IV 1 mg PRN PRN Administration Bradycardia Bisacodyl 10 mg 01/02/20 15:48 01/02/20 18:25 Dulcolax [place] 10 mg QDAY PRN Administration Constipation Dextrose 50 ml 01/18/20 08:22 01/18/20 09:17 D50w (25gm) Syringe IV 50 ml Q30MIN PRN Administration Hypoglycemia Protocol Docusate Sodium 100 mg 01/01/20 22:00 01/22/20 10:27 Colace PO 100 mg BID SHANEL Administration Famotidine 20 mg 12/20/19 10:00 01/22/20 10:27 Pepcid PO 20 mg BID SHANEL Administration Fentanyl 50 mcg 12/27/19 16:57 01/19/20 22:00 Sublimaze IV 50 mcg Q10MIN PRN Administration ANALGESIA Hydrophilic Ointment 1 applic 12/18/19 12:35 Vaseline Lip Therapy TP Q2HR PRN Dry Lips Fentanyl Citrate 2,000 mcg in 100 mls @ 5.85 mls/hr 12/27/19 17:00 01/22/20 11:48 Fentanyl Drip Premix IV 3 mcg/kg/hr TITR SHANEL 17.55 mls/hr Administration Protocol 1 MCG/KG/HR Norepinephrine 4 mg in 250 mls @ 7.5 mls/hr 12/28/19 15:00 01/21/20 00:23 Levophed Drip 4 Mg/Ns 250 Ml IV 0 mcg/min TITR SHANEL 0 mls/hr Titration Protocol 2 MCG/MIN Vasopressin 20 unit/ Sodium 101 mls @ 9.09 mls/hr 12/30/19 12:30 01/01/20 13:44 Chloride IV 0 units/min TITR SHANEL 0 mls/hr Titration Protocol 0.03 UNITS/MIN Dopamine HCl/Dextrose 800 mg in 250 mls @ 4.388 mls/hr 12/31/19 16:00 01/22/20 08:14 Intropin Drip 800 Mg/D5w 250 Ml IV 0 mcg/kg/min TITR SHANEL 0 mls/hr Titration Protocol 2 MCG/KG/MIN Insulin Glargine 15 units 01/10/20 14:00 01/22/20 10:27 Lantus SUB-Q 15 units BID SHANEL Administration Insulin Human Lispro 0 unit 01/20/20 18:00 01/22/20 06:44 Humalog SUB-Q 4 unit Q6HR SHANEL Administration Protocol Levothyroxine Sodium 88 mcg 12/19/19 06:00 01/22/20 06:48 Synthroid PO 88 mcg QAM@0600 SHANEL Administration Multi-Ingred Cream/Lotion/Oil/Oint 1 applic 12/18/19 12:35 Artificial Tears Ophth Oint OU Q4HR PRN Dry Eye(s) Polyethylene Glycol 17 gm 01/01/20 22:00 01/21/20 22:20 Miralax 3350 PO 17 gm QHS SHANEL Administration Simple Syrup 15 ml 12/19/19 08:29 01/06/20 04:58 Simple Syrup FEEDTUBE 15 ml PRN PRN Administration Hypoglycemia Simple Syrup 30 ml 12/19/19 08:29 Simple Syrup FEEDTUBE PRN PRN Hypoglycemia Sodium Bicarbonate 325 mg 12/19/19 08:29 Sodium Bicarbonate FEEDTUBE PRN PRN For Clogged Feeding Tube Sodium Chloride 10 ml 12/18/19 22:00 01/22/20 10:27 Sodium Chloride Flush Syringe 10 Ml IV 10 ml BID SHANEL Administration Sodium Chloride 10 ml 12/18/19 13:31 Sodium Chloride Flush Syringe 10 Ml IV PRN PRN LINE FLUSH Nutrition/Malnutrition Assess - Dietary Evaluation Nutrition/Malnutrition Findings: Nutrition Notes Start: 12/19/19 08:16 Freq: Status: Active Protocol: Document 01/20/20 11:39 LM (Rec: 01/20/20 11:42 LM [id number]) Nutrition Notes Initial or Follow up Reassessment Current Diagnosis Diabetes,Sepsis,Hypertension, Heart Failure,Respiratory Failure Other Pertinent Diagnosis COVID-19 (-), pneu Current Diet Vital AF 1.2 at 65ml/hr Labs/Tests POC glu 163 7/15 Na 144 Pertinent Medications Lantus Height 6 ft 2 in Weight 118.5 kg [place] Body Weight (kg) 86.36 BMI 33.5 Weight change and time frame Wt change noted Subjective/Other Information Vital running at 65 ml/hr and pt is tolerating TF. Percent of energy/protein needs met: 93%/68% Burn Absent Trauma Absent Current % PO Negligible Minimum of two criteria No physical signs of malnutrition #1 Nutrition Diagnosis Inadequate oral intake Diagnosis Progress(for reassessment Continues documentation) Is patient on ventilator? Yes Is Patient Ambulatory and/or Out of Bed No REE-([facility]-confined to bed) 2487.948 Kcal/Kg value to use for calculation 17 Approximate Energy Requirements Using 2015 kcal/Kg Calculation Used for Recommendations Kcal/kg Additional Notes Protein: 172g (>/=2g/kg using IBW 86kg) Fluid 1ml/kcal Nutrition Intervention Change Diet Order: TF Nutrition Support: Vital AF 1.2 at 65ml/hr Flush 250ml q4h for hypernatremia Flush 100ml q4h Kcal 1,872 Protein (gm) 117 Fluid (mL) 1,265 Goal #1 TF tolerance Goal #2 Meet at least 75% of energy and protein needs Anticipated Discharge Needs: unable to determine at this time Follow-Up By: 01/25/20 Additional Comments Follow for TF tolerance and Na levels
--- NOTE | 2020-01-22 14:06 | Progress Note ---
Assessment and Plan Acute Hypoxemic Respiratory Failure Severe Sepsis with Shock Bilateral Pneumonia PUI COVID-19 Morbid Obesity H/O CHF JOE - repeat CXR on friday - get ABG and drop rate if acceptable - off dopamine - daily sedation vacation - no new issues otherwise, continue care as below; - continue bowel regimen - keep peep at 8 cm H2O re: bibasilar atelectasis - prn CXR's & ABG's at this point - Daily SAT and SBT assessment as tolerated - accuchecks with glycemic control per SSI (While critically ill target blood glucose of 140-180 mg/dL; avoid hypoglycemia) - sedation for target RASS 0 to -1 - continue to wean supplemental oxygen for target O2 sat's > 92% acutely - continue bronchodilators with pulmonary hygiene per RT - VAP bundle addressed - lung protective strategies - wean per pulmonary driven protocols otherwise - continue to avoid benzodiazepine's, reduce the possibility of delirium - adjust AB's per ID rec's - prn analgesia per CPOT score - Maintenance of sleep-wake cycle - continue to avoid benzodiazepine's, reduce the possibility of delirium - continue enteral nutritional support at goal rate as tolerated - G.I. & VTE prophylaxis - PT/OT/ROM exercises - continue mobility protocols for pressure ulcer prophylaxis - repeat COVID-19 test negative - continue aspiration precautions - continue accuchecks with glycemic control per SSI (While critically ill target blood glucose of 140-180 mg/dL; avoid hypoglycemia) - Monitor hemodynamics closely - continue other care per attending / other consultants - discharge planning ongoing concurrently - LTAC evaluation requested .... Re-evaluate in am & prn CONDITION: CRITICAL PROGNOSIS: GUARDED CODE STATUS: FULL CODE The high probability of a clinically significant, sudden or life-threatening deterioration of the [respiratory, cardiovascular, GI & neurologic] system(s) required my full and direct attention, intervention and personal management. The aggregate critical care time was [33] minutes without overlap. Time includes spent on; [x] Data Review and interpretation [x] Patient assessment and monitoring of vital signs [x] Documentation [x] Medication orders and management Subjective Date of service: 01/22/20 Principal diagnosis: Ac. Hypoxemic Resp Failure; Septic Shock; Magdiel. PNA; PUI COVID-19; CHF; JOE Interval history: Patient is seen today for: Acute Hypoxemic Respiratory Failure; Severe Sepsis with Shock; Bilateral Pneumonia; PUI COVID-19; Morbid Obesity; H/O CHF; JOE Seen and examined at bedside; 24hour events reviewed; nursing and respiratory care staff consulted; no adverse overnight events reported to me; resting peacefully in bed; remains on MVS; No emesis or overt aspiration; AMS i9s persistent Objective Vital Signs - 12hr 01/22/20 01/22/20 01/22/20 02:15 02:30 02:45 Temperature Pulse Rate 96 H 96 H 97 H Pulse Rate [ Bilateral] Pulse Rate [ From Monitor] Respiratory 14 14 14 Rate Respiratory Rate [Bilateral ] Respiratory Rate [pt denies ] Blood Pressure 116/63 119/66 115/70 O2 Sat by Pulse 96 97 97 Oximetry O2 Sat by Pulse Oximetry [ Assessment] 01/22/20 01/22/20 01/22/20 03:00 03:15 03:30 Temperature Pulse Rate 94 H 95 H 95 H Pulse Rate [ Bilateral] Pulse Rate [ From Monitor] Respiratory 14 14 14 Rate Respiratory Rate [Bilateral ] Respiratory Rate [pt denies ] Blood Pressure 117/63 113/66 118/72 O2 Sat by Pulse 95 96 97 Oximetry O2 Sat by Pulse Oximetry [ Assessment] 01/22/20 01/22/20 01/22/20 03:39 03:45 04:00 Temperature 99.9 F H Pulse Rate 96 H 98 H Pulse Rate [ Bilateral] Pulse Rate [ 96 H From Monitor] Respiratory 14 14 Rate Respiratory Rate [Bilateral ] Respiratory Rate [pt denies ] Blood Pressure 126/72 134/73 O2 Sat by Pulse 98 97 Oximetry O2 Sat by Pulse Oximetry [ Assessment] 01/22/20 01/22/20 01/22/20 04:15 04:30 04:45 Temperature Pulse Rate 98 H 98 H 94 H Pulse Rate [ Bilateral] Pulse Rate [ From Monitor] Respiratory 14 14 14 Rate Respiratory Rate [Bilateral ] Respiratory Rate [pt denies ] Blood Pressure 128/71 138/69 138/69 O2 Sat by Pulse 97 99 98 Oximetry O2 Sat by Pulse Oximetry [ Assessment] 01/22/20 01/22/20 01/22/20 04:58 05:00 05:15 Temperature Pulse Rate 93 H 95 H 96 H Pulse Rate [ Bilateral] Pulse Rate [ From Monitor] Respiratory 14 14 Rate Respiratory Rate [Bilateral ] Respiratory Rate [pt denies ] Blood Pressure 131/70 131/70 124/70 O2 Sat by Pulse 95 95 95 Oximetry O2 Sat by Pulse Oximetry [ Assessment] 01/22/20 01/22/20 01/22/20 05:30 05:45 06:00 Temperature Pulse Rate 94 H 95 H 95 H Pulse Rate [ Bilateral] Pulse Rate [ From Monitor] Respiratory 14 14 14 Rate Respiratory Rate [Bilateral ] Respiratory Rate [pt denies ] Blood Pressure 115/66 122/68 123/72 O2 Sat by Pulse 95 95 96 Oximetry O2 Sat by Pulse Oximetry [ Assessment] 01/22/20 01/22/20 01/22/20 06:15 06:30 06:45 Temperature Pulse Rate 96 H 96 H 93 H Pulse Rate [ Bilateral] Pulse Rate [ From Monitor] Respiratory 14 14 14 Rate Respiratory Rate [Bilateral ] Respiratory Rate [pt denies ] Blood Pressure 115/70 123/70 123/69 O2 Sat by Pulse 96 97 96 Oximetry O2 Sat by Pulse Oximetry [ Assessment] 01/22/20 01/22/20 01/22/20 07:00 07:15 07:30 Temperature Pulse Rate 93 H 92 H 97 H Pulse Rate [ Bilateral] Pulse Rate [ From Monitor] Respiratory 14 14 20 Rate Respiratory Rate [Bilateral ] Respiratory Rate [pt denies ] Blood Pressure 115/70 121/68 121/72 O2 Sat by Pulse 95 95 98 Oximetry O2 Sat by Pulse Oximetry [ Assessment] 01/22/20 01/22/20 01/22/20 07:31 07:36 07:37 Temperature Pulse Rate 97 H Pulse Rate [ 100 H Bilateral] Pulse Rate [ From Monitor] Respiratory Rate Respiratory 20 Rate [Bilateral ] Respiratory Rate [pt denies ] Blood Pressure 121/72 O2 Sat by Pulse 95 Oximetry O2 Sat by Pulse 95 Oximetry [ Assessment] 01/22/20 01/22/20 01/22/20 07:45 08:00 08:15 Temperature 98.9 F Pulse Rate 98 H 100 H 102 H Pulse Rate [ Bilateral] Pulse Rate [ 103 H From Monitor] Respiratory 20 20 20 Rate Respiratory Rate [Bilateral ] Respiratory Rate [pt denies ] Blood Pressure 117/70 124/66 124/72 O2 Sat by Pulse 93 95 98 Oximetry O2 Sat by Pulse Oximetry [ Assessment] 01/22/20 01/22/20 01/22/20 08:30 08:45 09:00 Temperature Pulse Rate 103 H 104 H 100 H Pulse Rate [ Bilateral] Pulse Rate [ From Monitor] Respiratory 20 20 20 Rate Respiratory Rate [Bilateral ] Respiratory Rate [pt denies ] Blood Pressure 114/75 125/74 137/77 O2 Sat by Pulse 96 92 Oximetry O2 Sat by Pulse Oximetry [ Assessment] 01/22/20 01/22/20 01/22/20 09:15 09:30 09:45 Temperature Pulse Rate 104 H 107 H 104 H Pulse Rate [ Bilateral] Pulse Rate [ From Monitor] Respiratory 22 22 23 Rate Respiratory Rate [Bilateral ] Respiratory Rate [pt denies ] Blood Pressure 125/73 131/64 138/81 O2 Sat by Pulse 97 97 92 Oximetry O2 Sat by Pulse Oximetry [ Assessment] 01/22/20 01/22/20 01/22/20 10:00 10:09 10:15 Temperature Pulse Rate 102 H 102 H 104 H Pulse Rate [ Bilateral] Pulse Rate [ From Monitor] Respiratory 20 21 Rate Respiratory Rate [Bilateral ] Respiratory 14 Rate [pt denies ] Blood Pressure 131/74 131/74 134/71 O2 Sat by Pulse 100 95 99 Oximetry O2 Sat by Pulse Oximetry [ Assessment] 01/22/20 01/22/20 01/22/20 10:30 10:45 11:00 Temperature Pulse Rate 104 H 101 H 99 H Pulse Rate [ Bilateral] Pulse Rate [ From Monitor] Respiratory 20 20 20 Rate Respiratory Rate [Bilateral ] Respiratory Rate [pt denies ] Blood Pressure 118/70 113/71 125/77 O2 Sat by Pulse 98 98 96 Oximetry O2 Sat by Pulse Oximetry [ Assessment] 01/22/20 01/22/20 01/22/20 11:15 11:30 11:45 Temperature Pulse Rate 97 H 99 H 108 H Pulse Rate [ Bilateral] Pulse Rate [ From Monitor] Respiratory 21 19 21 Rate Respiratory Rate [Bilateral ] Respiratory Rate [pt denies ] Blood Pressure 128/74 126/78 139/93 O2 Sat by Pulse 96 91 91 Oximetry O2 Sat by Pulse Oximetry [ Assessment] 01/22/20 01/22/20 01/22/20 11:54 12:00 12:15 Temperature 98.7 F Pulse Rate 104 H 107 H Pulse Rate [ Bilateral] Pulse Rate [ 106 H From Monitor] Respiratory 20 20 Rate Respiratory Rate [Bilateral ] Respiratory Rate [pt denies ] Blood Pressure 153/84 140/80 O2 Sat by Pulse 97 99 Oximetry O2 Sat by Pulse 94 Oximetry [ Assessment] 01/22/20 01/22/20 01/22/20 12:30 12:45 13:00 Temperature Pulse Rate 106 H 106 H 103 H Pulse Rate [ Bilateral] Pulse Rate [ From Monitor] Respiratory 20 20 20 Rate Respiratory Rate [Bilateral ] Respiratory Rate [pt denies ] Blood Pressure 150/74 148/73 153/68 O2 Sat by Pulse 97 97 95 Oximetry O2 Sat by Pulse Oximetry [ Assessment] 01/22/20 01/22/20 01/22/20 13:15 13:30 13:45 Temperature Pulse Rate 105 H 104 H 101 H Pulse Rate [ Bilateral] Pulse Rate [ From Monitor] Respiratory 19 20 21 Rate Respiratory Rate [Bilateral ] Respiratory Rate [pt denies ] Blood Pressure 136/70 145/76 128/74 O2 Sat by Pulse 95 95 95 Oximetry O2 Sat by Pulse Oximetry [ Assessment] Constitutional: no acute distress, other (elderly obese AAM with mildly increras ed respiratory effort at rest on MVS) Eyes: non-icteric ENT: oropharynx moist, other (s/p trachepstomy) Neck: supple, no lymphadenopathy, no JVD Effort: mildly labored Ascultation: Bilateral: diminished breath sounds, rhonchi, other (diminished bibasilar air entry) Percussion: Bilateral: not dull Cardiovascular: regular rate and rhythm, other (S1,S2) Gastrointestinal: normoactive bowel sounds, soft, non-tender, other (protuberant) Integumentary: rash (stasis dermatyitis) Extremities: no cyanosis, pink and warm, pulses normal, no ischemia or pet echiae, edema (trace) Neurologic: normal mental status, non-focal exam, pupils equal and round, CN II- XII normal, motor strength normal and (obeys simple commands) Psychiatric: mood appropriate, affect normal CBC and BMP: 01/21/20 13:01 01/21/20 13:01 ABG, PT/INR, D-dimer: ABG ABG pH 7.383 pH Units (7.350-7.450) 01/22/20 04:45 ABG pCO2 71.2 mm Hg 01/22/20 04:45 ABG pO2 174.7 mm Hg (80.0-90.0) H 01/22/20 04:45 ABG O2 Saturation 99.0 % (95.0-99.0) 01/22/20 04:45 PT/INR, D-dimer PT 13.3 Sec. (12.2-14.9) 01/18/20 04:45 INR 1.03 (0.87-1.13) 01/18/20 04:45 D-Dimer 534.45 ng/mlDDU (0-234) H 12/18/19 14:45 Abnormal lab findings: Abnormal Labs 12/18/19 12/18/19 12/18/19 12:23 14:45 14:45 WBC RBC Hgb 10.4 L Hct 35.2 L MCV MCH 25 L MCHC 30 L RDW 18.8 H Plt Count Lymph % (Auto) [place] % (Auto) 11.6 H Eos % (Auto) 4.8 H Baso % (Auto) Lymph # [place] # 1.0 H Eos # Baso # Seg Neutrophils % Monocytes % (Manual) Monocytes # (Manual) D-Dimer ABG pH ABG pO2 ABG HCO3 ABG O2 Saturation ABG Base Excess ABG Hemoglobin Oxyhemoglobin Sodium Potassium Chloride Carbon Dioxide BUN Creatinine Glucose POC Glucose 328 H Lactic Acid Calcium Magnesium AST ALT Lactate Dehydrogenase Total Creatine Kinase 40 L C-Reactive Protein Total Protein Albumin Free T4 Urine WBC (Auto) Urine Total Protein Digoxin Salicylates Acetaminophen 12/18/19 12/18/19 12/18/19 14:45 14:45 14:45 WBC RBC Hgb Hct MCV MCH MCHC RDW Plt Count Lymph % (Auto) [place] % (Auto) Eos % (Auto) Baso % (Auto) Lymph # [place] # Eos # Baso # Seg Neutrophils % Monocytes % (Manual) Monocytes # (Manual) D-Dimer 534.45 H ABG pH ABG pO2 ABG HCO3 ABG O2 Saturation ABG Base Excess ABG Hemoglobin Oxyhemoglobin Sodium 156 H Potassium Chloride 112.3 H Carbon Dioxide 31 H BUN 32 H Creatinine Glucose 328 H POC Glucose Lactic Acid Calcium Magnesium AST ALT Lactate Dehydrogenase 235 H Total Creatine Kinase C-Reactive Protein 8.50 H Total Protein Albumin 3.6 L Free T4 Urine WBC (Auto) Urine Total Protein Digoxin 0.3 L Salicylates < 0.3 L Acetaminophen 12/18/19 12/18/19 12/18/19 14:45 14:45 16:00 WBC RBC Hgb Hct MCV MCH MCHC RDW Plt Count Lymph % (Auto) [place] % (Auto) Eos % (Auto) Baso % (Auto) Lymph # [place] # Eos # Baso # Seg Neutrophils % Monocytes % (Manual) Monocytes # (Manual) D-Dimer ABG pH ABG pO2 69.8 L ABG HCO3 31.8 H ABG O2 Saturation ABG Base Excess 5.4 H ABG Hemoglobin 10.0 L Oxyhemoglobin 92.9 L Sodium Potassium Chloride Carbon Dioxide BUN Creatinine Glucose 314 H POC Glucose Lactic Acid Calcium Magnesium AST ALT Lactate Dehydrogenase 236 H Total Creatine Kinase C-Reactive Protein 8.40 H Total Protein Albumin Free T4 Urine WBC (Auto) Urine Total Protein Digoxin Salicylates Acetaminophen < 5.0 L 12/18/19 12/18/19 12/18/19 16:35 18:30 22:56 WBC RBC Hgb Hct MCV MCH MCHC RDW Plt Count Lymph % (Auto) [place] % (Auto) Eos % (Auto) Baso % (Auto) Lymph # [place] # Eos # Baso # Seg Neutrophils % Monocytes % (Manual) Monocytes # (Manual) D-Dimer ABG pH ABG pO2 ABG HCO3 ABG O2 Saturation ABG Base Excess ABG Hemoglobin Oxyhemoglobin Sodium Potassium Chloride Carbon Dioxide BUN Creatinine Glucose POC Glucose 310 H 353 H Lactic Acid 2.50 H* Calcium Magnesium AST ALT Lactate Dehydrogenase Total Creatine Kinase C-Reactive Protein Total Protein Albumin Free T4 Urine WBC (Auto) Urine Total Protein Digoxin Salicylates Acetaminophen 12/19/19 12/19/19 12/19/19 04:13 04:13 06:00 WBC RBC Hgb 10.0 L Hct 34.2 L MCV MCH 25 L MCHC 29 L RDW 19.0 H Plt Count Lymph % (Auto) [place] % (Auto) 10.1 H Eos % (Auto) Baso % (Auto) Lymph # [place] # 1.1 H Eos # Baso # Seg Neutrophils % 71.8 H Monocytes % (Manual) Monocytes # (Manual) D-Dimer ABG pH ABG pO2 186.5 H ABG HCO3 27.8 H ABG O2 Saturation 99.1 H ABG Base Excess ABG Hemoglobin 10.4 L Oxyhemoglobin Sodium 157 H Potassium Chloride 119.1 H Carbon Dioxide BUN 26 H Creatinine Glucose 302 H POC Glucose Lactic Acid Calcium 7.9 L Magnesium AST 85 H ALT 61 H Lactate Dehydrogenase Total Creatine Kinase C-Reactive Protein Total Protein Albumin 3.0 L Free T4 Urine WBC (Auto) Urine Total Protein Digoxin Salicylates Acetaminophen 12/19/19 12/19/19 12/19/19 08:30 11:55 16:50 WBC RBC Hgb Hct MCV MCH MCHC RDW Plt Count Lymph % (Auto) [place] % (Auto) Eos % (Auto) Baso % (Auto) Lymph # [place] # Eos # Baso # Seg Neutrophils % Monocytes % (Manual) Monocytes # (Manual) D-Dimer ABG pH ABG pO2 ABG HCO3 ABG O2 Saturation ABG Base Excess ABG Hemoglobin Oxyhemoglobin Sodium Potassium Chloride Carbon Dioxide BUN Creatinine Glucose POC Glucose 264 H 251 H Lactic Acid Calcium Magnesium AST ALT Lactate Dehydrogenase Total Creatine Kinase C-Reactive Protein Total Protein Albumin Free T4 Urine WBC (Auto) 7.0 H Urine Total Protein Digoxin Salicylates Acetaminophen 12/19/19 12/19/19 12/20/19 17:41 23:42 03:35 WBC RBC Hgb Hct MCV MCH MCHC RDW Plt Count Lymph % (Auto) [place] % (Auto) Eos % (Auto) Baso % (Auto) Lymph # [place] # Eos # Baso # Seg Neutrophils % Monocytes % (Manual) Monocytes # (Manual) D-Dimer ABG pH ABG pO2 ABG HCO3 27.7 H ABG O2 Saturation ABG Base Excess ABG Hemoglobin 11.6 L Oxyhemoglobin 94.9 L Sodium Potassium Chloride Carbon Dioxide BUN Creatinine Glucose POC Glucose 180 H 205 H Lactic Acid Calcium Magnesium AST ALT Lactate Dehydrogenase Total Creatine Kinase C-Reactive Protein Total Protein Albumin Free T4 Urine WBC (Auto) Urine Total Protein Digoxin Salicylates Acetaminophen 12/20/19 12/20/19 12/20/19 04:45 04:45 05:27 WBC RBC Hgb 9.4 L Hct 31.4 L MCV MCH 25 L MCHC 30 L RDW 19.4 H Plt Count Lymph % (Auto) [place] % (Auto) 10.2 H Eos % (Auto) 6.0 H Baso % (Auto) Lymph # 0.9 L [place] # Eos # Baso # Seg Neutrophils % Monocytes % (Manual) Monocytes # (Manual) D-Dimer ABG pH ABG pO2 ABG HCO3 ABG O2 Saturation ABG Base Excess ABG Hemoglobin Oxyhemoglobin Sodium 153 H Potassium Chloride 114.6 H Carbon Dioxide BUN Creatinine Glucose 170 H POC Glucose 188 H Lactic Acid Calcium 7.9 L Magnesium AST ALT Lactate Dehydrogenase Total Creatine Kinase C-Reactive Protein Total Protein Albumin Free T4 Urine WBC (Auto) Urine Total Protein Digoxin Salicylates Acetaminophen 12/20/19 12/20/19 12/21/19 12:26 18:20 00:20 WBC RBC Hgb Hct MCV MCH MCHC RDW Plt Count Lymph % (Auto) [place] % (Auto) Eos % (Auto) Baso % (Auto) Lymph # [place] # Eos # Baso # Seg Neutrophils % Monocytes % (Manual) Monocytes # (Manual) D-Dimer ABG pH ABG pO2 ABG HCO3 ABG O2 Saturation ABG Base Excess ABG Hemoglobin Oxyhemoglobin Sodium Potassium Chloride Carbon Dioxide BUN Creatinine Glucose POC Glucose 200 H 263 H 218 H Lactic Acid Calcium Magnesium AST ALT Lactate Dehydrogenase Total Creatine Kinase C-Reactive Protein Total Protein Albumin Free T4 Urine WBC (Auto) Urine Total Protein Digoxin Salicylates Acetaminophen 12/21/19 12/21/19 12/21/19 04:38 05:26 12:35 WBC RBC Hgb Hct MCV MCH MCHC RDW Plt Count Lymph % (Auto) [place] % (Auto) Eos % (Auto) Baso % (Auto) Lymph # [place] # Eos # Baso # Seg Neutrophils % Monocytes % (Manual) Monocytes # (Manual) D-Dimer ABG pH ABG pO2 ABG HCO3 ABG O2 Saturation ABG Base Excess ABG Hemoglobin Oxyhemoglobin Sodium 149 H Potassium 3.5 L Chloride 110.5 H Carbon Dioxide BUN Creatinine Glucose 158 H POC Glucose 193 H 193 H Lactic Acid Calcium Magnesium AST ALT Lactate Dehydrogenase Total Creatine Kinase C-Reactive Protein Total Protein Albumin Free T4 Urine WBC (Auto) Urine Total Protein Digoxin Salicylates Acetaminophen 12/21/19 12/22/19 12/22/19 18:29 00:03 05:15 WBC RBC Hgb 10.3 L Hct 34.7 L MCV MCH 25 L MCHC 30 L RDW 19.4 H Plt Count Lymph % (Auto) 9.0 L [place] % (Auto) 12.3 H Eos % (Auto) 5.0 H Baso % (Auto) Lymph # 0.5 L [place] # Eos # Baso # Seg Neutrophils % 73.2 H Monocytes % (Manual) Monocytes # (Manual) D-Dimer ABG pH ABG pO2 ABG HCO3 ABG O2 Saturation ABG Base Excess ABG Hemoglobin Oxyhemoglobin Sodium Potassium Chloride Carbon Dioxide BUN Creatinine Glucose POC Glucose 186 H 143 H Lactic Acid Calcium Magnesium AST ALT Lactate Dehydrogenase Total Creatine Kinase C-Reactive Protein Total Protein Albumin Free T4 Urine WBC (Auto) Urine Total Protein Digoxin Salicylates Acetaminophen 12/22/19 12/22/19 12/22/19 05:15 06:02 12:13 WBC RBC Hgb Hct MCV MCH MCHC RDW Plt Count Lymph % (Auto) [place] % (Auto) Eos % (Auto) Baso % (Auto) Lymph # [place] # Eos # Baso # Seg Neutrophils % Monocytes % (Manual) Monocytes # (Manual) D-Dimer ABG pH ABG pO2 ABG HCO3 ABG O2 Saturation ABG Base Excess ABG Hemoglobin Oxyhemoglobin Sodium 152 H Potassium Chloride 113.5 H Carbon Dioxide BUN Creatinine Glucose 126 H POC Glucose 144 H 159 H Lactic Acid Calcium Magnesium AST ALT Lactate Dehydrogenase Total Creatine Kinase C-Reactive Protein Total Protein Albumin Free T4 Urine WBC (Auto) Urine Total Protein Digoxin Salicylates Acetaminophen 12/22/19 12/22/19 12/23/19 18:03 23:50 05:27 WBC RBC Hgb Hct MCV MCH MCHC RDW Plt Count Lymph % (Auto) [place] % (Auto) Eos % (Auto) Baso % (Auto) Lymph # [place] # Eos # Baso # Seg Neutrophils % Monocytes % (Manual) Monocytes # (Manual) D-Dimer ABG pH ABG pO2 ABG HCO3 ABG O2 Saturation ABG Base Excess ABG Hemoglobin Oxyhemoglobin Sodium Potassium Chloride Carbon Dioxide BUN Creatinine Glucose POC Glucose 140 H 227 H 185 H Lactic Acid Calcium Magnesium AST ALT Lactate Dehydrogenase Total Creatine Kinase C-Reactive Protein Total Protein Albumin Free T4 Urine WBC (Auto) Urine Total Protein Digoxin Salicylates Acetaminophen 12/23/19 12/23/19 12/23/19 12:13 16:05 16:40 WBC RBC Hgb Hct MCV MCH MCHC RDW Plt Count Lymph % (Auto) [place] % (Auto) Eos % (Auto) Baso % (Auto) Lymph # [place] # Eos # Baso # Seg Neutrophils % Monocytes % (Manual) Monocytes # (Manual) D-Dimer ABG pH 7.259 L ABG pO2 76.2 L ABG HCO3 30.6 H ABG O2 Saturation 94.6 L ABG Base Excess ABG Hemoglobin 11.5 L Oxyhemoglobin 92.2 L Sodium 163 H* D Potassium 3.4 L Chloride 120.1 H Carbon Dioxide BUN Creatinine Glucose 162 H POC Glucose 132 H Lactic Acid Calcium Magnesium AST ALT Lactate Dehydrogenase Total Creatine Kinase C-Reactive Protein Total Protein Albumin Free T4 Urine WBC (Auto) Urine Total Protein Digoxin Salicylates Acetaminophen 12/23/19 12/24/19 12/24/19 17:53 00:48 04:20 WBC RBC Hgb Hct MCV MCH MCHC RDW Plt Count Lymph % (Auto) [place] % (Auto) Eos % (Auto) Baso % (Auto) Lymph # [place] # Eos # Baso # Seg Neutrophils % Monocytes % (Manual) Monocytes # (Manual) D-Dimer ABG pH ABG pO2 ABG HCO3 30.4 H ABG O2 Saturation ABG Base Excess 3.9 H ABG Hemoglobin 10.3 L Oxyhemoglobin 94.4 L Sodium Potassium Chloride Carbon Dioxide BUN Creatinine Glucose POC Glucose 180 H 174 H Lactic Acid Calcium Magnesium AST ALT Lactate Dehydrogenase Total Creatine Kinase C-Reactive Protein Total Protein Albumin Free T4 Urine WBC (Auto) Urine Total Protein Digoxin Salicylates Acetaminophen 12/24/19 12/24/19 12/24/19 04:53 04:53 11:50 WBC RBC Hgb 9.7 L Hct 33.2 L MCV MCH 25 L MCHC 29 L RDW 20.1 H Plt Count Lymph % (Auto) [place] % (Auto) Eos % (Auto) Baso % (Auto) Lymph # [place] # Eos # Baso # Seg Neutrophils % Monocytes % (Manual) 15.0 H Monocytes # (Manual) 0.9 H D-Dimer ABG pH ABG pO2 ABG HCO3 ABG O2 Saturation ABG Base Excess ABG Hemoglobin Oxyhemoglobin Sodium 163 H* Potassium 3.2 L Chloride 122.6 H Carbon Dioxide BUN Creatinine Glucose 168 H POC Glucose 190 H Lactic Acid Calcium Magnesium AST ALT Lactate Dehydrogenase Total Creatine Kinase C-Reactive Protein Total Protein Albumin Free T4 Urine WBC (Auto) Urine Total Protein Digoxin Salicylates Acetaminophen 12/24/19 12/24/19 12/24/19 15:00 16:28 21:15 WBC RBC Hgb Hct MCV MCH MCHC RDW Plt Count Lymph % (Auto) [place] % (Auto) Eos % (Auto) Baso % (Auto) Lymph # [place] # Eos # Baso # Seg Neutrophils % Monocytes % (Manual) Monocytes # (Manual) D-Dimer ABG pH ABG pO2 ABG HCO3 ABG O2 Saturation ABG Base Excess ABG Hemoglobin Oxyhemoglobin Sodium 165 H* D 163 H* Potassium Chloride Carbon Dioxide BUN Creatinine Glucose POC Glucose 160 H Lactic Acid Calcium Magnesium AST ALT Lactate Dehydrogenase Total Creatine Kinase C-Reactive Protein Total Protein Albumin Free T4 Urine WBC (Auto) Urine Total Protein Digoxin Salicylates Acetaminophen 12/25/19 12/25/19 12/25/19 00:31 05:38 05:46 WBC RBC Hgb 9.7 L Hct 32.5 L MCV MCH 25 L MCHC 30 L RDW 19.4 H Plt Count Lymph % (Auto) [place] % (Auto) Eos % (Auto) Baso % (Auto) Lymph # [place] # Eos # Baso # Seg Neutrophils % Monocytes % (Manual) Monocytes # (Manual) D-Dimer ABG pH ABG pO2 ABG HCO3 ABG O2 Saturation ABG Base Excess ABG Hemoglobin Oxyhemoglobin Sodium Potassium Chloride Carbon Dioxide BUN Creatinine Glucose POC Glucose 182 H 194 H Lactic Acid Calcium Magnesium AST ALT Lactate Dehydrogenase Total Creatine Kinase C-Reactive Protein Total Protein Albumin Free T4 Urine WBC (Auto) Urine Total Protein Digoxin Salicylates Acetaminophen 12/25/19 12/25/19 12/25/19 05:46 11:35 11:38 WBC RBC Hgb Hct MCV MCH MCHC RDW Plt Count Lymph % (Auto) [place] % (Auto) Eos % (Auto) Baso % (Auto) Lymph # [place] # Eos # Baso # Seg Neutrophils % Monocytes % (Manual) Monocytes # (Manual) D-Dimer ABG pH 7.330 L ABG pO2 65.7 L ABG HCO3 32.6 H ABG O2 Saturation 92.5 L ABG Base Excess 5.3 H ABG Hemoglobin 10.4 L Oxyhemoglobin 90.0 L Sodium 166 H* Potassium 2.9 L* Chloride 124.5 H Carbon Dioxide BUN Creatinine Glucose 190 H POC Glucose 192 H Lactic Acid Calcium Magnesium AST ALT Lactate Dehydrogenase Total Creatine Kinase C-Reactive Protein Total Protein Albumin Free T4 Urine WBC (Auto) Urine Total Protein Digoxin Salicylates Acetaminophen 12/25/19 12/25/19 12/25/19 13:01 16:45 17:20 WBC RBC Hgb Hct MCV MCH MCHC RDW Plt Count Lymph % (Auto) [place] % (Auto) Eos % (Auto) Baso % (Auto) Lymph # [place] # Eos # Baso # Seg Neutrophils % Monocytes % (Manual) Monocytes # (Manual) D-Dimer ABG pH 7.296 L ABG pO2 101.5 H ABG HCO3 33.2 H ABG O2 Saturation ABG Base Excess 5.3 H ABG Hemoglobin 9.6 L Oxyhemoglobin 94.6 L Sodium 174 H* Potassium Chloride Carbon Dioxide BUN Creatinine Glucose POC Glucose Lactic Acid Calcium Magnesium AST ALT Lactate Dehydrogenase Total Creatine Kinase C-Reactive Protein Total Protein Albumin Free T4 Urine WBC (Auto) Urine Total Protein < 4 L Digoxin Salicylates Acetaminophen 12/25/19 12/25/19 12/26/19 17:48 18:50 00:43 WBC RBC Hgb Hct MCV MCH MCHC RDW Plt Count Lymph % (Auto) [place] % (Auto) Eos % (Auto) Baso % (Auto) Lymph # [place] # Eos # Baso # Seg Neutrophils % Monocytes % (Manual) Monocytes # (Manual) D-Dimer ABG pH ABG pO2 ABG HCO3 ABG O2 Saturation ABG Base Excess ABG Hemoglobin Oxyhemoglobin Sodium 166 H* 164 H* Potassium Chloride 127.3 H Carbon Dioxide BUN Creatinine Glucose 220 H POC Glucose 252 H Lactic Acid Calcium Magnesium AST ALT Lactate Dehydrogenase Total Creatine Kinase C-Reactive Protein Total Protein Albumin Free T4 Urine WBC (Auto) Urine Total Protein Digoxin Salicylates Acetaminophen 12/26/19 12/26/19 12/26/19 05:31 08:07 08:07 WBC 4.3 L RBC Hgb 9.6 L Hct 32.1 L MCV MCH 26 L MCHC 30 L RDW 20.5 H Plt Count Lymph % (Auto) [place] % (Auto) Eos % (Auto) Baso % (Auto) Lymph # [place] # Eos # Baso # Seg Neutrophils % Monocytes % (Manual) Monocytes # (Manual) D-Dimer ABG pH ABG pO2 ABG HCO3 ABG O2 Saturation ABG Base Excess ABG Hemoglobin Oxyhemoglobin Sodium 162 H* Potassium Chloride 122.1 H Carbon Dioxide BUN Creatinine Glucose 247 H POC Glucose 187 H Lactic Acid Calcium Magnesium AST ALT Lactate Dehydrogenase Total Creatine Kinase C-Reactive Protein Total Protein Albumin Free T4 Urine WBC (Auto) Urine Total Protein Digoxin Salicylates Acetaminophen 12/26/19 12/26/19 12/26/19 08:07 12:20 16:25 WBC RBC Hgb Hct MCV MCH MCHC RDW Plt Count Lymph % (Auto) [place] % (Auto) Eos % (Auto) Baso % (Auto) Lymph # [place] # Eos # Baso # Seg Neutrophils % Monocytes % (Manual) Monocytes # (Manual) D-Dimer ABG pH 7.290 L ABG pO2 73.2 L ABG HCO3 33.2 H ABG O2 Saturation 94.9 L ABG Base Excess 5.2 H ABG Hemoglobin 10.0 L Oxyhemoglobin 92.5 L Sodium 159 H Potassium Chloride Carbon Dioxide BUN Creatinine Glucose POC Glucose 234 H Lactic Acid Calcium Magnesium AST ALT Lactate Dehydrogenase Total Creatine Kinase C-Reactive Protein Total Protein Albumin Free T4 Urine WBC (Auto) Urine Total Protein Digoxin Salicylates Acetaminophen 12/26/19 12/26/19 12/26/19 17:33 22:35 23:30 WBC RBC Hgb Hct MCV MCH MCHC RDW Plt Count Lymph % (Auto) [place] % (Auto) Eos % (Auto) Baso % (Auto) Lymph # [place] # Eos # Baso # Seg Neutrophils % Monocytes % (Manual) Monocytes # (Manual) D-Dimer ABG pH ABG pO2 ABG HCO3 ABG O2 Saturation ABG Base Excess ABG Hemoglobin Oxyhemoglobin Sodium Potassium Chloride Carbon Dioxide BUN Creatinine Glucose POC Glucose 244 H 208 H 287 H Lactic Acid Calcium Magnesium AST ALT Lactate Dehydrogenase Total Creatine Kinase C-Reactive Protein Total Protein Albumin Free T4 Urine WBC (Auto) Urine Total Protein Digoxin Salicylates Acetaminophen 12/27/19 12/27/19 12/27/19 03:48 03:48 03:48 WBC RBC Hgb 10.1 L Hct 35.4 L MCV MCH 25 L MCHC 29 L RDW 20.1 H Plt Count Lymph % (Auto) [place] % (Auto) Eos % (Auto) Baso % (Auto) Lymph # [place] # Eos # Baso # Seg Neutrophils % Monocytes % (Manual) Monocytes # (Manual) D-Dimer ABG pH ABG pO2 ABG HCO3 ABG O2 Saturation ABG Base Excess ABG Hemoglobin Oxyhemoglobin Sodium 160 H Potassium Chloride 118.8 H Carbon Dioxide 33 H BUN Creatinine Glucose 217 H POC Glucose Lactic Acid Calcium Magnesium 2.70 H AST ALT Lactate Dehydrogenase Total Creatine Kinase C-Reactive Protein Total Protein Albumin Free T4 Urine WBC (Auto) Urine Total Protein Digoxin Salicylates Acetaminophen 12/27/19 12/27/19 12/27/19 05:50 11:58 16:05 WBC RBC Hgb Hct MCV MCH MCHC RDW Plt Count Lymph % (Auto) [place] % (Auto) Eos % (Auto) Baso % (Auto) Lymph # [place] # Eos # Baso # Seg Neutrophils % Monocytes % (Manual) Monocytes # (Manual) D-Dimer ABG pH 7.180 L* ABG pO2 73.6 L ABG HCO3 34.8 H ABG O2 Saturation 92.7 L ABG Base Excess 3.8 H ABG Hemoglobin 12.0 L Oxyhemoglobin 90.2 L Sodium Potassium Chloride Carbon Dioxide BUN Creatinine Glucose POC Glucose 224 H 218 H Lactic Acid Calcium Magnesium AST ALT Lactate Dehydrogenase Total Creatine Kinase C-Reactive Protein Total Protein Albumin Free T4 Urine WBC (Auto) Urine Total Protein Digoxin Salicylates Acetaminophen 12/27/19 12/27/19 12/27/19 18:05 19:50 21:53 WBC RBC Hgb Hct MCV MCH MCHC RDW Plt Count Lymph % (Auto) [place] % (Auto) Eos % (Auto) Baso % (Auto) Lymph # [place] # Eos # Baso # Seg Neutrophils % Monocytes % (Manual) Monocytes # (Manual) D-Dimer ABG pH 7.328 L ABG pO2 49.9 L ABG HCO3 33.3 H ABG O2 Saturation 87.1 L ABG Base Excess 5.7 H ABG Hemoglobin 11.2 L Oxyhemoglobin 84.8 L Sodium Potassium Chloride Carbon Dioxide BUN Creatinine Glucose POC Glucose 214 H 178 H Lactic Acid Calcium Magnesium AST ALT Lactate Dehydrogenase Total Creatine Kinase C-Reactive Protein Total Protein Albumin Free T4 Urine WBC (Auto) Urine Total Protein Digoxin Salicylates Acetaminophen 12/28/19 12/28/19 12/28/19 00:42 04:37 04:37 WBC RBC Hgb 9.8 L Hct 33.5 L MCV MCH 25 L MCHC 29 L RDW 21.1 H Plt Count Lymph % (Auto) [place] % (Auto) Eos % (Auto) Baso % (Auto) Lymph # [place] # Eos # Baso # Seg Neutrophils % Monocytes % (Manual) Monocytes # (Manual) D-Dimer ABG pH ABG pO2 ABG HCO3 ABG O2 Saturation ABG Base Excess ABG Hemoglobin Oxyhemoglobin Sodium 157 H Potassium 3.4 L Chloride 117.5 H Carbon Dioxide BUN Creatinine Glucose 193 H POC Glucose 157 H Lactic Acid Calcium Magnesium AST ALT Lactate Dehydrogenase Total Creatine Kinase C-Reactive Protein Total Protein Albumin Free T4 Urine WBC (Auto) Urine Total Protein Digoxin Salicylates Acetaminophen 12/28/19 12/28/19 12/28/19 04:52 05:19 12:05 WBC RBC Hgb Hct MCV MCH MCHC RDW Plt Count Lymph % (Auto) [place] % (Auto) Eos % (Auto) Baso % (Auto) Lymph # [place] # Eos # Baso # Seg Neutrophils % Monocytes % (Manual) Monocytes # (Manual) D-Dimer ABG pH ABG pO2 51.7 L ABG HCO3 28.7 H ABG O2 Saturation 89.9 L ABG Base Excess 4.1 H ABG Hemoglobin 9.7 L Oxyhemoglobin 87.7 L Sodium Potassium Chloride Carbon Dioxide BUN Creatinine Glucose POC Glucose 202 H 248 H Lactic Acid Calcium Magnesium AST ALT Lactate Dehydrogenase Total Creatine Kinase C-Reactive Protein Total Protein Albumin Free T4 Urine WBC (Auto) Urine Total Protein Digoxin Salicylates Acetaminophen 12/28/19 12/28/19 12/28/19 18:11 21:15 23:22 WBC RBC Hgb Hct MCV MCH MCHC RDW Plt Count Lymph % (Auto) [place] % (Auto) Eos % (Auto) Baso % (Auto) Lymph # [place] # Eos # Baso # Seg Neutrophils % Monocytes % (Manual) Monocytes # (Manual) D-Dimer ABG pH ABG pO2 ABG HCO3 ABG O2 Saturation ABG Base Excess ABG Hemoglobin Oxyhemoglobin Sodium Potassium Chloride Carbon Dioxide BUN Creatinine Glucose POC Glucose 226 H 217 H 227 H Lactic Acid Calcium Magnesium AST ALT Lactate Dehydrogenase Total Creatine Kinase C-Reactive Protein Total Protein Albumin Free T4 Urine WBC (Auto) Urine Total Protein Digoxin Salicylates Acetaminophen 12/29/19 12/29/19 12/29/19 04:09 04:59 04:59 WBC 11.1 H RBC Hgb 9.3 L Hct 31.1 L MCV 81 L MCH 24 L MCHC 30 L RDW 19.9 H Plt Count Lymph % (Auto) [place] % (Auto) Eos % (Auto) Baso % (Auto) Lymph # [place] # Eos # Baso # Seg Neutrophils % Monocytes % (Manual) Monocytes # (Manual) D-Dimer ABG pH 7.473 H ABG pO2 126.1 H ABG HCO3 29.2 H ABG O2 Saturation ABG Base Excess 5.1 H ABG Hemoglobin 8.4 L Oxyhemoglobin Sodium 157 H Potassium 3.2 L Chloride 118.2 H Carbon Dioxide BUN Creatinine 1.7 H Glucose 229 H POC Glucose Lactic Acid Calcium Magnesium AST ALT Lactate Dehydrogenase Total Creatine Kinase C-Reactive Protein Total Protein Albumin Free T4 Urine WBC (Auto) Urine Total Protein Digoxin Salicylates Acetaminophen 12/29/19 12/29/19 12/29/19 05:15 12:13 17:59 WBC RBC Hgb Hct MCV MCH MCHC RDW Plt Count Lymph % (Auto) [place] % (Auto) Eos % (Auto) Baso % (Auto) Lymph # [place] # Eos # Baso # Seg Neutrophils % Monocytes % (Manual) Monocytes # (Manual) D-Dimer ABG pH ABG pO2 ABG HCO3 ABG O2 Saturation ABG Base Excess ABG Hemoglobin Oxyhemoglobin Sodium Potassium Chloride Carbon Dioxide BUN Creatinine Glucose POC Glucose 221 H 392 H 365 H Lactic Acid Calcium Magnesium AST ALT Lactate Dehydrogenase Total Creatine Kinase C-Reactive Protein Total Protein Albumin Free T4 Urine WBC (Auto) Urine Total Protein Digoxin Salicylates Acetaminophen 12/29/19 12/29/19 12/30/19 20:25 23:38 04:45 WBC RBC Hgb Hct MCV MCH MCHC RDW Plt Count Lymph % (Auto) [place] % (Auto) Eos % (Auto) Baso % (Auto) Lymph # [place] # Eos # Baso # Seg Neutrophils % Monocytes % (Manual) Monocytes # (Manual) D-Dimer ABG pH 7.261 L 7.343 L ABG pO2 60.3 L 54.3 L ABG HCO3 32.1 H 30.9 H ABG O2 Saturation 87.6 L 88.3 L ABG Base Excess 3.7 H 4.0 H ABG Hemoglobin 9.7 L 11.6 L Oxyhemoglobin 85.2 L 86.0 L Sodium Potassium Chloride Carbon Dioxide BUN Creatinine Glucose POC Glucose 402 H Lactic Acid Calcium Magnesium AST ALT Lactate Dehydrogenase Total Creatine Kinase C-Reactive Protein Total Protein Albumin Free T4 Urine WBC (Auto) Urine Total Protein Digoxin Salicylates Acetaminophen 12/30/19 12/30/19 12/30/19 05:06 05:06 05:06 WBC 11.7 H RBC Hgb 9.4 L Hct 32.4 L MCV 83 L MCH 24 L MCHC 29 L RDW 20.2 H Plt Count Lymph % (Auto) [place] % (Auto) Eos % (Auto) Baso % (Auto) Lymph # [place] # Eos # Baso # Seg Neutrophils % Monocytes % (Manual) Monocytes # (Manual) D-Dimer ABG pH ABG pO2 ABG HCO3 ABG O2 Saturation ABG Base Excess ABG Hemoglobin Oxyhemoglobin Sodium 159 H Potassium 3.2 L Chloride 120.1 H Carbon Dioxide 31 H BUN Creatinine 1.9 H Glucose 404 H POC Glucose Lactic Acid Calcium Magnesium 2.60 H AST ALT Lactate Dehydrogenase Total Creatine Kinase C-Reactive Protein Total Protein Albumin Free T4 Urine WBC (Auto) Urine Total Protein Digoxin Salicylates Acetaminophen 12/30/19 12/30/19 12/30/19 06:26 12:29 13:44 WBC RBC Hgb Hct MCV MCH MCHC RDW Plt Count Lymph % (Auto) [place] % (Auto) Eos % (Auto) Baso % (Auto) Lymph # [place] # Eos # Baso # Seg Neutrophils % Monocytes % (Manual) Monocytes # (Manual) D-Dimer ABG pH ABG pO2 ABG HCO3 ABG O2 Saturation ABG Base Excess ABG Hemoglobin Oxyhemoglobin Sodium Potassium Chloride Carbon Dioxide BUN Creatinine Glucose POC Glucose 399 H 469 H > 500 H Lactic Acid Calcium Magnesium AST ALT Lactate Dehydrogenase Total Creatine Kinase C-Reactive Protein Total Protein Albumin Free T4 Urine WBC (Auto) Urine Total Protein Digoxin Salicylates Acetaminophen 12/30/19 12/30/19 12/30/19 13:51 16:32 18:05 WBC RBC Hgb Hct MCV MCH MCHC RDW Plt Count Lymph % (Auto) [place] % (Auto) Eos % (Auto) Baso % (Auto) Lymph # [place] # Eos # Baso # Seg Neutrophils % Monocytes % (Manual) Monocytes # (Manual) D-Dimer ABG pH ABG pO2 ABG HCO3 ABG O2 Saturation ABG Base Excess ABG Hemoglobin Oxyhemoglobin Sodium Potassium Chloride Carbon Dioxide BUN Creatinine Glucose POC Glucose > 500 H 445 H 429 H Lactic Acid Calcium Magnesium AST ALT Lactate Dehydrogenase Total Creatine Kinase C-Reactive Protein Total Protein Albumin Free T4 Urine WBC (Auto) Urine Total Protein Digoxin Salicylates Acetaminophen 12/30/19 12/30/19 12/31/19 21:42 Unknown 00:00 WBC RBC Hgb Hct MCV MCH MCHC RDW Plt Count Lymph % (Auto) [place] % (Auto) Eos % (Auto) Baso % (Auto) Lymph # [place] # Eos # Baso # Seg Neutrophils % Monocytes % (Manual) Monocytes # (Manual) D-Dimer ABG pH ABG pO2 ABG HCO3 ABG O2 Saturation ABG Base Excess ABG Hemoglobin Oxyhemoglobin Sodium Potassium Chloride Carbon Dioxide BUN Creatinine Glucose 498 H POC Glucose 371 H 452 H Lactic Acid Calcium Magnesium AST ALT Lactate Dehydrogenase Total Creatine Kinase C-Reactive Protein Total Protein Albumin Free T4 Urine WBC (Auto) Urine Total Protein Digoxin Salicylates Acetaminophen 12/31/19 12/31/19 12/31/19 04:31 05:42 08:01 WBC RBC Hgb Hct MCV MCH MCHC RDW Plt Count Lymph % (Auto) [place] % (Auto) Eos % (Auto) Baso % (Auto) Lymph # [place] # Eos # Baso # Seg Neutrophils % Monocytes % (Manual) Monocytes # (Manual) D-Dimer ABG pH 7.251 L ABG pO2 62.4 L ABG HCO3 31.1 H ABG O2 Saturation 88.7 L ABG Base Excess ABG Hemoglobin 8.7 L Oxyhemoglobin 86.4 L Sodium Potassium Chloride Carbon Dioxide BUN Creatinine Glucose POC Glucose 443 H 443 H Lactic Acid Calcium Magnesium AST ALT Lactate Dehydrogenase Total Creatine Kinase C-Reactive Protein Total Protein Albumin Free T4 Urine WBC (Auto) Urine Total Protein Digoxin Salicylates Acetaminophen 12/31/19 12/31/19 12/31/19 09:08 10:00 11:50 WBC RBC Hgb Hct MCV MCH MCHC RDW Plt Count Lymph % (Auto) [place] % (Auto) Eos % (Auto) Baso % (Auto) Lymph # [place] # Eos # Baso # Seg Neutrophils % Monocytes % (Manual) Monocytes # (Manual) D-Dimer ABG pH 7.325 L ABG pO2 97.2 H ABG HCO3 30.1 H ABG O2 Saturation ABG Base Excess 3.4 H ABG Hemoglobin 8.3 L Oxyhemoglobin 94.7 L Sodium 151 H D Potassium 3.2 L Chloride 113.0 H Carbon Dioxide BUN 23 H Creatinine 1.8 H Glucose 373 H POC Glucose 465 H Lactic Acid Calcium Magnesium AST ALT Lactate Dehydrogenase Total Creatine Kinase C-Reactive Protein Total Protein Albumin Free T4 Urine WBC (Auto) Urine Total Protein Digoxin Salicylates Acetaminophen 12/31/19 12/31/19 12/31/19 12:25 13:33 18:30 WBC RBC Hgb Hct MCV MCH MCHC RDW Plt Count Lymph % (Auto) [place] % (Auto) Eos % (Auto) Baso % (Auto) Lymph # [place] # Eos # Baso # Seg Neutrophils % Monocytes % (Manual) Monocytes # (Manual) D-Dimer ABG pH ABG pO2 ABG HCO3 ABG O2 Saturation ABG Base Excess ABG Hemoglobin Oxyhemoglobin Sodium Potassium Chloride Carbon Dioxide BUN Creatinine Glucose POC Glucose 379 H 311 H 349 H Lactic Acid Calcium Magnesium AST ALT Lactate Dehydrogenase Total Creatine Kinase C-Reactive Protein Total Protein Albumin Free T4 Urine WBC (Auto) Urine Total Protein Digoxin Salicylates Acetaminophen 12/31/19 12/31/19 01/01/20 22:29 23:30 02:58 WBC RBC Hgb Hct MCV MCH MCHC RDW Plt Count Lymph % (Auto) [place] % (Auto) Eos % (Auto) Baso % (Auto) Lymph # [place] # Eos # Baso # Seg Neutrophils % Monocytes % (Manual) Monocytes # (Manual) D-Dimer ABG pH ABG pO2 ABG HCO3 ABG O2 Saturation ABG Base Excess ABG Hemoglobin Oxyhemoglobin Sodium Potassium Chloride Carbon Dioxide BUN Creatinine Glucose POC Glucose 256 H 266 H 248 H Lactic Acid Calcium Magnesium AST ALT Lactate Dehydrogenase Total Creatine Kinase C-Reactive Protein Total Protein Albumin Free T4 Urine WBC (Auto) Urine Total Protein Digoxin Salicylates Acetaminophen 01/01/20 01/01/20 01/01/20 04:19 06:56 10:52 WBC RBC Hgb Hct MCV MCH MCHC RDW Plt Count Lymph % (Auto) [place] % (Auto) Eos % (Auto) Baso % (Auto) Lymph # [place] # Eos # Baso # Seg Neutrophils % Monocytes % (Manual) Monocytes # (Manual) D-Dimer ABG pH ABG pO2 90.7 H ABG HCO3 29.1 H ABG O2 Saturation ABG Base Excess 3.8 H ABG Hemoglobin 8.1 L Oxyhemoglobin 94.5 L Sodium Potassium Chloride Carbon Dioxide BUN Creatinine Glucose POC Glucose 303 H 244 H Lactic Acid Calcium Magnesium AST ALT Lactate Dehydrogenase Total Creatine Kinase C-Reactive Protein Total Protein Albumin Free T4 Urine WBC (Auto) Urine Total Protein Digoxin Salicylates Acetaminophen 01/01/20 01/01/20 01/01/20 13:39 14:49 18:42 WBC RBC Hgb Hct MCV MCH MCHC RDW Plt Count Lymph % (Auto) [place] % (Auto) Eos % (Auto) Baso % (Auto) Lymph # [place] # Eos # Baso # Seg Neutrophils % Monocytes % (Manual) Monocytes # (Manual) D-Dimer ABG pH ABG pO2 ABG HCO3 ABG O2 Saturation ABG Base Excess ABG Hemoglobin Oxyhemoglobin Sodium 147 H Potassium Chloride 107.1 H Carbon Dioxide BUN 28 H Creatinine Glucose 207 H POC Glucose 263 H 188 H Lactic Acid Calcium Magnesium AST ALT Lactate Dehydrogenase Total Creatine Kinase C-Reactive Protein Total Protein Albumin Free T4 Urine WBC (Auto) Urine Total Protein Digoxin Salicylates Acetaminophen 01/02/20 01/02/20 01/02/20 02:22 03:58 05:00 WBC RBC 3.31 L Hgb 8.0 L Hct 26.9 L MCV 81 L MCH 24 L MCHC 30 L RDW 19.4 H Plt Count Lymph % (Auto) [place] % (Auto) 9.4 H Eos % (Auto) 11.2 H Baso % (Auto) Lymph # [place] # Eos # 0.8 H Baso # Seg Neutrophils % Monocytes % (Manual) Monocytes # (Manual) D-Dimer ABG pH ABG pO2 63.0 L ABG HCO3 31.6 H ABG O2 Saturation 91.8 L ABG Base Excess 5.5 H ABG Hemoglobin 8.6 L Oxyhemoglobin 89.6 L Sodium Potassium Chloride Carbon Dioxide BUN Creatinine Glucose POC Glucose 196 H Lactic Acid Calcium Magnesium AST ALT Lactate Dehydrogenase Total Creatine Kinase C-Reactive Protein Total Protein Albumin Free T4 Urine WBC (Auto) Urine Total Protein Digoxin Salicylates Acetaminophen 01/02/20 01/02/20 01/02/20 05:40 10:26 13:57 WBC RBC Hgb Hct MCV MCH MCHC RDW Plt Count Lymph % (Auto) [place] % (Auto) Eos % (Auto) Baso % (Auto) Lymph # [place] # Eos # Baso # Seg Neutrophils % Monocytes % (Manual) Monocytes # (Manual) D-Dimer ABG pH ABG pO2 ABG HCO3 ABG O2 Saturation ABG Base Excess ABG Hemoglobin Oxyhemoglobin Sodium Potassium Chloride Carbon Dioxide BUN Creatinine Glucose POC Glucose 189 H 157 H 178 H Lactic Acid Calcium Magnesium AST ALT Lactate Dehydrogenase Total Creatine Kinase C-Reactive Protein Total Protein Albumin Free T4 Urine WBC (Auto) Urine Total Protein Digoxin Salicylates Acetaminophen 01/02/20 01/03/20 01/03/20 21:27 03:12 05:26 WBC RBC Hgb Hct MCV MCH MCHC RDW Plt Count Lymph % (Auto) [place] % (Auto) Eos % (Auto) Baso % (Auto) Lymph # [place] # Eos # Baso # Seg Neutrophils % Monocytes % (Manual) Monocytes # (Manual) D-Dimer ABG pH 7.473 H ABG pO2 109.6 H ABG HCO3 30.4 H ABG O2 Saturation ABG Base Excess 6.2 H ABG Hemoglobin 9.9 L Oxyhemoglobin Sodium Potassium Chloride Carbon Dioxide BUN Creatinine Glucose POC Glucose 131 H 133 H Lactic Acid Calcium Magnesium AST ALT Lactate Dehydrogenase Total Creatine Kinase C-Reactive Protein Total Protein Albumin Free T4 Urine WBC (Auto) Urine Total Protein Digoxin Salicylates Acetaminophen 01/03/20 01/03/20 01/03/20 05:40 05:40 15:01 WBC RBC 3.45 L Hgb 8.3 L Hct 27.3 L MCV 79 L MCH 24 L MCHC 30 L RDW 19.3 H Plt Count Lymph % (Auto) [place] % (Auto) Eos % (Auto) Baso % (Auto) Lymph # [place] # Eos # Baso # Seg Neutrophils % Monocytes % (Manual) Monocytes # (Manual) D-Dimer ABG pH ABG pO2 ABG HCO3 ABG O2 Saturation ABG Base Excess ABG Hemoglobin Oxyhemoglobin Sodium 151 H Potassium Chloride 111.8 H Carbon Dioxide 31 H BUN 37 H Creatinine 1.8 H Glucose 187 H POC Glucose 164 H Lactic Acid Calcium Magnesium AST ALT Lactate Dehydrogenase Total Creatine Kinase C-Reactive Protein Total Protein Albumin Free T4 Urine WBC (Auto) Urine Total Protein Digoxin Salicylates Acetaminophen 01/03/20 01/03/20 01/04/20 18:15 22:45 02:11 WBC RBC Hgb Hct MCV MCH MCHC RDW Plt Count Lymph % (Auto) [place] % (Auto) Eos % (Auto) Baso % (Auto) Lymph # [place] # Eos # Baso # Seg Neutrophils % Monocytes % (Manual) Monocytes # (Manual) D-Dimer ABG pH ABG pO2 ABG HCO3 ABG O2 Saturation ABG Base Excess ABG Hemoglobin Oxyhemoglobin Sodium Potassium Chloride Carbon Dioxide BUN Creatinine Glucose POC Glucose 184 H 176 H 206 H Lactic Acid Calcium Magnesium AST ALT Lactate Dehydrogenase Total Creatine Kinase C-Reactive Protein Total Protein Albumin Free T4 Urine WBC (Auto) Urine Total Protein Digoxin Salicylates Acetaminophen 01/04/20 01/04/20 01/04/20 03:16 05:15 10:53 WBC RBC Hgb Hct MCV MCH MCHC RDW Plt Count Lymph % (Auto) [place] % (Auto) Eos % (Auto) Baso % (Auto) Lymph # [place] # Eos # Baso # Seg Neutrophils % Monocytes % (Manual) Monocytes # (Manual) D-Dimer ABG pH 7.282 L ABG pO2 73.2 L ABG HCO3 ABG O2 Saturation 94.5 L ABG Base Excess -6.4 L ABG Hemoglobin 10.9 L Oxyhemoglobin 92.1 L Sodium Potassium Chloride Carbon Dioxide BUN Creatinine Glucose POC Glucose 139 H 224 H Lactic Acid Calcium Magnesium AST ALT Lactate Dehydrogenase Total Creatine Kinase C-Reactive Protein Total Protein Albumin Free T4 Urine WBC (Auto) Urine Total Protein Digoxin Salicylates Acetaminophen 01/04/20 01/04/20 01/04/20 15:47 18:05 22:07 WBC RBC Hgb Hct MCV MCH MCHC RDW Plt Count Lymph % (Auto) [place] % (Auto) Eos % (Auto) Baso % (Auto) Lymph # [place] # Eos # Baso # Seg Neutrophils % Monocytes % (Manual) Monocytes # (Manual) D-Dimer ABG pH ABG pO2 ABG HCO3 ABG O2 Saturation ABG Base Excess ABG Hemoglobin Oxyhemoglobin Sodium Potassium Chloride Carbon Dioxide BUN Creatinine Glucose POC Glucose 135 H 117 H 108 H Lactic Acid Calcium Magnesium AST ALT Lactate Dehydrogenase Total Creatine Kinase C-Reactive Protein Total Protein Albumin Free T4 Urine WBC (Auto) Urine Total Protein Digoxin Salicylates Acetaminophen 01/04/20 01/04/20 01/05/20 Unknown Unknown 02:04 WBC RBC 3.46 L Hgb 8.2 L Hct 27.8 L MCV 80 L MCH 24 L MCHC 30 L RDW 19.7 H Plt Count Lymph % (Auto) [place] % (Auto) Eos % (Auto) Baso % (Auto) Lymph # [place] # Eos # Baso # Seg Neutrophils % Monocytes % (Manual) Monocytes # (Manual) D-Dimer ABG pH ABG pO2 ABG HCO3 ABG O2 Saturation ABG Base Excess ABG Hemoglobin Oxyhemoglobin Sodium 150 H Potassium Chloride 110 H Carbon Dioxide 32 H BUN 32 H Creatinine Glucose 309 H POC Glucose 140 H Lactic Acid Calcium Magnesium AST ALT Lactate Dehydrogenase Total Creatine Kinase C-Reactive Protein Total Protein Albumin Free T4 Urine WBC (Auto) Urine Total Protein Digoxin Salicylates Acetaminophen 01/05/20 01/05/20 01/05/20 03:31 03:36 03:36 WBC RBC 3.46 L Hgb 8.4 L Hct 26.9 L MCV 78 L MCH 24 L MCHC 31 L RDW 19.0 H Plt Count Lymph % (Auto) [place] % (Auto) Eos % (Auto) Baso % (Auto) Lymph # [place] # Eos # Baso # Seg Neutrophils % Monocytes % (Manual) Monocytes # (Manual) D-Dimer ABG pH 7.454 H ABG pO2 113.0 H ABG HCO3 30.5 H ABG O2 Saturation ABG Base Excess 6.0 H ABG Hemoglobin 8.5 L Oxyhemoglobin Sodium 150 H Potassium Chloride 110.3 H Carbon Dioxide BUN 30 H Creatinine Glucose 148 H POC Glucose Lactic Acid Calcium Magnesium AST ALT Lactate Dehydrogenase Total Creatine Kinase C-Reactive Protein Total Protein Albumin Free T4 Urine WBC (Auto) Urine Total Protein Digoxin Salicylates Acetaminophen 01/05/20 01/05/20 01/05/20 05:21 09:56 11:45 WBC RBC Hgb Hct MCV MCH MCHC RDW Plt Count Lymph % (Auto) [place] % (Auto) Eos % (Auto) Baso % (Auto) Lymph # [place] # Eos # Baso # Seg Neutrophils % Monocytes % (Manual) Monocytes # (Manual) D-Dimer ABG pH ABG pO2 ABG HCO3 ABG O2 Saturation ABG Base Excess ABG Hemoglobin Oxyhemoglobin Sodium Potassium Chloride Carbon Dioxide BUN Creatinine Glucose POC Glucose 142 H 129 H 174 H Lactic Acid Calcium Magnesium AST ALT Lactate Dehydrogenase Total Creatine Kinase C-Reactive Protein Total Protein Albumin Free T4 Urine WBC (Auto) Urine Total Protein Digoxin Salicylates Acetaminophen 01/05/20 01/05/20 01/05/20 13:30 14:00 17:41 WBC RBC Hgb Hct MCV MCH MCHC RDW Plt Count Lymph % (Auto) [place] % (Auto) Eos % (Auto) Baso % (Auto) Lymph # [place] # Eos # Baso # Seg Neutrophils % Monocytes % (Manual) Monocytes # (Manual) D-Dimer ABG pH ABG pO2 ABG HCO3 ABG O2 Saturation ABG Base Excess ABG Hemoglobin Oxyhemoglobin Sodium Potassium Chloride Carbon Dioxide BUN 26 H Creatinine 1.6 H Glucose 302 H POC Glucose 168 H 136 H Lactic Acid Calcium Magnesium AST ALT Lactate Dehydrogenase Total Creatine Kinase C-Reactive Protein Total Protein Albumin Free T4 Urine WBC (Auto) Urine Total Protein Digoxin Salicylates Acetaminophen 01/05/20 01/05/2001/05/20 20:38 23:32 03:50 WBC RBC Hgb Hct MCV MCH MCHC RDW Plt Count Lymph % (Auto) [place] % (Auto) Eos % (Auto) Baso % (Auto) Lymph # [place] # Eos # Baso # Seg Neutrophils % Monocytes % (Manual) Monocytes # (Manual) D-Dimer ABG pH ABG pO2 76.2 L ABG HCO3 30.1 H ABG O2 Saturation ABG Base Excess 5.1 H ABG Hemoglobin 9.5 L Oxyhemoglobin 93.8 L Sodium Potassium Chloride Carbon Dioxide BUN Creatinine Glucose POC Glucose 124 H 163 H Lactic Acid Calcium Magnesium AST ALT Lactate Dehydrogenase Total Creatine Kinase C-Reactive Protein Total Protein Albumin Free T4 Urine WBC (Auto) Urine Total Protein Digoxin Salicylates Acetaminophen 01/06/20 01/06/20 01/06/20 04:09 04:58 04:58 WBC RBC Hgb 8.8 L Hct 28.7 L MCV 78 L MCH 24 L MCHC 31 L RDW 18.7 H Plt Count 522 H Lymph % (Auto) [place] % (Auto) Eos % (Auto) Baso % (Auto) Lymph # [place] # Eos # Baso # Seg Neutrophils % Monocytes % (Manual) Monocytes # (Manual) D-Dimer ABG pH ABG pO2 ABG HCO3 ABG O2 Saturation ABG Base Excess ABG Hemoglobin Oxyhemoglobin Sodium 150 H D Potassium Chloride 109.3 H Carbon Dioxide BUN 25 H Creatinine Glucose 55 L POC Glucose 65 L Lactic Acid Calcium Magnesium AST ALT Lactate Dehydrogenase Total Creatine Kinase C-Reactive Protein Total Protein Albumin Free T4 Urine WBC (Auto) Urine Total Protein Digoxin Salicylates Acetaminophen 01/06/20 01/06/20 01/06/20 05:01 14:10 17:49 WBC RBC Hgb Hct MCV MCH MCHC RDW Plt Count Lymph % (Auto) [place] % (Auto) Eos % (Auto) Baso % (Auto) Lymph # [place] # Eos # Baso # Seg Neutrophils % Monocytes % (Manual) Monocytes # (Manual) D-Dimer ABG pH ABG pO2 ABG HCO3 ABG O2 Saturation ABG Base Excess ABG Hemoglobin Oxyhemoglobin Sodium Potassium Chloride Carbon Dioxide BUN Creatinine Glucose POC Glucose 60 L 119 H 131 H Lactic Acid Calcium Magnesium AST ALT Lactate Dehydrogenase Total Creatine Kinase C-Reactive Protein Total Protein Albumin Free T4 Urine WBC (Auto) Urine Total Protein Digoxin Salicylates Acetaminophen 01/06/20 01/07/20 01/07/20 21:08 02:11 05:19 WBC RBC Hgb Hct MCV MCH MCHC RDW Plt Count Lymph % (Auto) [place] % (Auto) Eos % (Auto) Baso % (Auto) Lymph # [place] # Eos # Baso # Seg Neutrophils % Monocytes % (Manual) Monocytes # (Manual) D-Dimer ABG pH ABG pO2 ABG HCO3 ABG O2 Saturation ABG Base Excess ABG Hemoglobin Oxyhemoglobin Sodium Potassium Chloride Carbon Dioxide BUN Creatinine Glucose POC Glucose 136 H 209 H 182 H Lactic Acid Calcium Magnesium AST ALT Lactate Dehydrogenase Total Creatine Kinase C-Reactive Protein Total Protein Albumin Free T4 Urine WBC (Auto) Urine Total Protein Digoxin Salicylates Acetaminophen 01/07/20 01/07/20 01/07/20 11:40 11:52 13:49 WBC RBC Hgb Hct MCV MCH MCHC RDW Plt Count Lymph % (Auto) [place] % (Auto) Eos % (Auto) Baso % (Auto) Lymph # [place] # Eos # Baso # Seg Neutrophils % Monocytes % (Manual) Monocytes # (Manual) D-Dimer ABG pH ABG pO2 ABG HCO3 ABG O2 Saturation ABG Base Excess ABG Hemoglobin Oxyhemoglobin Sodium Potassium Chloride Carbon Dioxide BUN 21 H Creatinine Glucose 190 H POC Glucose 180 H 184 H Lactic Acid Calcium Magnesium AST ALT Lactate Dehydrogenase Total Creatine Kinase C-Reactive Protein Total Protein Albumin Free T4 Urine WBC (Auto) Urine Total Protein Digoxin Salicylates Acetaminophen 01/07/20 01/07/20 01/07/20 17:54 22:19 Unknown WBC RBC Hgb Hct MCV MCH MCHC RDW Plt Count Lymph % (Auto) [place] % (Auto) Eos % (Auto) Baso % (Auto) Lymph # [place] # Eos # Baso # Seg Neutrophils % Monocytes % (Manual) Monocytes # (Manual) D-Dimer ABG pH ABG pO2 ABG HCO3 28.9 H ABG O2 Saturation ABG Base Excess 4.0 H ABG Hemoglobin 11.0 L Oxyhemoglobin 94.2 L Sodium Potassium Chloride Carbon Dioxide BUN Creatinine Glucose POC Glucose 190 H 299 H Lactic Acid Calcium Magnesium AST ALT Lactate Dehydrogenase Total Creatine Kinase C-Reactive Protein Total Protein Albumin Free T4 Urine WBC (Auto) Urine Total Protein Digoxin Salicylates Acetaminophen 01/08/20 01/08/20 01/08/20 02:45 05:26 05:27 WBC RBC Hgb Hct MCV MCH MCHC RDW Plt Count Lymph % (Auto) [place] % (Auto) Eos % (Auto) Baso % (Auto) Lymph # [place] # Eos # Baso # Seg Neutrophils % Monocytes % (Manual) Monocytes # (Manual) D-Dimer ABG pH ABG pO2 67.8 L ABG HCO3 26.5 H ABG O2 Saturation 93.2 L ABG Base Excess ABG Hemoglobin 8.1 L Oxyhemoglobin 90.4 L Sodium Potassium Chloride Carbon Dioxide BUN Creatinine Glucose POC Glucose 245 H 346 H Lactic Acid Calcium Magnesium AST ALT Lactate Dehydrogenase Total Creatine Kinase C-Reactive Protein Total Protein Albumin Free T4 Urine WBC (Auto) Urine Total Protein Digoxin Salicylates Acetaminophen 01/08/20 01/08/20 01/08/20 08:03 08:03 10:33 WBC RBC 3.14 L Hgb 7.6 L Hct 24.3 L MCV 77 L MCH 24 L MCHC 31 L RDW 18.3 H Plt Count 509 H Lymph % (Auto) [place] % (Auto) Eos % (Auto) Baso % (Auto) Lymph # [place] # Eos # Baso # Seg Neutrophils % Monocytes % (Manual) Monocytes # (Manual) D-Dimer ABG pH ABG pO2 ABG HCO3 ABG O2 Saturation ABG Base Excess ABG Hemoglobin Oxyhemoglobin Sodium 132 L D Potassium Chloride 94.7 L Carbon Dioxide BUN 22 H Creatinine Glucose 284 H POC Glucose 275 H Lactic Acid Calcium Magnesium AST ALT Lactate Dehydrogenase Total Creatine Kinase C-Reactive Protein Total Protein Albumin Free T4 Urine WBC (Auto) Urine Total Protein Digoxin Salicylates Acetaminophen 01/08/20 01/08/20 01/08/20 13:34 17:24 21:49 WBC RBC Hgb Hct MCV MCH MCHC RDW Plt Count Lymph % (Auto) [place] % (Auto) Eos % (Auto) Baso % (Auto) Lymph # [place] # Eos # Baso # Seg Neutrophils % Monocytes % (Manual) Monocytes # (Manual) D-Dimer ABG pH ABG pO2 ABG HCO3 ABG O2 Saturation ABG Base Excess ABG Hemoglobin Oxyhemoglobin Sodium Potassium Chloride Carbon Dioxide BUN Creatinine Glucose POC Glucose 273 H 294 H 265 H Lactic Acid Calcium Magnesium AST ALT Lactate Dehydrogenase Total Creatine Kinase C-Reactive Protein Total Protein Albumin Free T4 Urine WBC (Auto) Urine Total Protein Digoxin Salicylates Acetaminophen 01/09/20 01/09/20 01/09/20 00:13 03:45 05:55 WBC RBC Hgb Hct MCV MCH MCHC RDW Plt Count Lymph % (Auto) [place] % (Auto) Eos % (Auto) Baso % (Auto) Lymph # [place] # Eos # Baso # Seg Neutrophils % Monocytes % (Manual) Monocytes # (Manual) D-Dimer ABG pH ABG pO2 ABG HCO3 ABG O2 Saturation ABG Base Excess ABG Hemoglobin Oxyhemoglobin Sodium Potassium Chloride Carbon Dioxide BUN Creatinine Glucose POC Glucose 251 H 346 H 300 H Lactic Acid Calcium Magnesium AST ALT Lactate Dehydrogenase Total Creatine Kinase C-Reactive Protein Total Protein Albumin Free T4 Urine WBC (Auto) Urine Total Protein Digoxin Salicylates Acetaminophen 01/09/20 01/09/20 01/09/20 08:15 09:31 12:04 WBC RBC Hgb Hct MCV MCH MCHC RDW Plt Count Lymph % (Auto) [place] % (Auto) Eos % (Auto) Baso % (Auto) Lymph # [place] # Eos # Baso # Seg Neutrophils % Monocytes % (Manual) Monocytes # (Manual) D-Dimer ABG pH ABG pO2 ABG HCO3 ABG O2 Saturation ABG Base Excess ABG Hemoglobin Oxyhemoglobin Sodium 134 L Potassium Chloride 97.6 L Carbon Dioxide BUN 25 H Creatinine Glucose 240 H POC Glucose 191 H 230 H Lactic Acid Calcium Magnesium AST ALT Lactate Dehydrogenase Total Creatine Kinase C-Reactive Protein Total Protein Albumin Free T4 Urine WBC (Auto) Urine Total Protein Digoxin Salicylates Acetaminophen 01/09/20 01/09/20 01/09/20 13:46 17:31 22:28 WBC RBC Hgb Hct MCV MCH MCHC RDW Plt Count Lymph % (Auto) [place] % (Auto) Eos % (Auto) Baso % (Auto) Lymph # [place] # Eos # Baso # Seg Neutrophils % Monocytes % (Manual) Monocytes # (Manual) D-Dimer ABG pH ABG pO2 ABG HCO3 ABG O2 Saturation ABG Base Excess ABG Hemoglobin Oxyhemoglobin Sodium Potassium Chloride Carbon Dioxide BUN Creatinine Glucose POC Glucose 211 H 260 H 223 H Lactic Acid Calcium Magnesium AST ALT Lactate Dehydrogenase Total Creatine Kinase C-Reactive Protein Total Protein Albumin Free T4 Urine WBC (Auto) Urine Total Protein Digoxin Salicylates Acetaminophen 01/10/20 01/10/20 01/10/20 02:16 04:20 05:55 WBC RBC Hgb Hct MCV MCH MCHC RDW Plt Count Lymph % (Auto) [place] % (Auto) Eos % (Auto) Baso % (Auto) Lymph # [place] # Eos # Baso # Seg Neutrophils % Monocytes % (Manual) Monocytes # (Manual) D-Dimer ABG pH ABG pO2 95.3 H ABG HCO3 27.8 H ABG O2 Saturation ABG Base Excess ABG Hemoglobin 8.3 L Oxyhemoglobin Sodium Potassium Chloride Carbon Dioxide BUN Creatinine Glucose POC Glucose 219 H 245 H Lactic Acid Calcium Magnesium AST ALT Lactate Dehydrogenase Total Creatine Kinase C-Reactive Protein Total Protein Albumin Free T4 Urine WBC (Auto) Urine Total Protein Digoxin Salicylates Acetaminophen 01/10/20 01/10/20 01/10/20 10:38 15:08 15:45 WBC RBC Hgb Hct MCV MCH MCHC RDW Plt Count Lymph % (Auto) [place] % (Auto) Eos % (Auto) Baso % (Auto) Lymph # [place] # Eos # Baso # Seg Neutrophils % Monocytes % (Manual) Monocytes # (Manual) D-Dimer ABG pH ABG pO2 ABG HCO3 ABG O2 Saturation ABG Base Excess ABG Hemoglobin Oxyhemoglobin Sodium Potassium Chloride Carbon Dioxide BUN Creatinine Glucose POC Glucose 268 H 246 H 238 H Lactic Acid Calcium Magnesium AST ALT Lactate Dehydrogenase Total Creatine Kinase C-Reactive Protein Total Protein Albumin Free T4 Urine WBC (Auto) Urine Total Protein Digoxin Salicylates Acetaminophen 01/10/20 01/10/20 01/10/20 18:00 21:09 22:48 WBC RBC Hgb Hct MCV MCH MCHC RDW Plt Count Lymph % (Auto) [place] % (Auto) Eos % (Auto) Baso % (Auto) Lymph # [place] # Eos # Baso # Seg Neutrophils % Monocytes % (Manual) Monocytes # (Manual) D-Dimer ABG pH ABG pO2 ABG HCO3 ABG O2 Saturation ABG Base Excess ABG Hemoglobin Oxyhemoglobin Sodium Potassium Chloride Carbon Dioxide BUN Creatinine Glucose POC Glucose 187 H 176 H 189 H Lactic Acid Calcium Magnesium AST ALT Lactate Dehydrogenase Total Creatine Kinase C-Reactive Protein Total Protein Albumin Free T4 Urine WBC (Auto) Urine Total Protein Digoxin Salicylates Acetaminophen 01/11/20 01/11/20 01/11/20 03:07 05:45 05:45 WBC RBC 3.15 L Hgb 7.7 L Hct 24.9 L MCV 79 L MCH 24 L MCHC 31 L RDW 18.7 H Plt Count 667 H Lymph % (Auto) [place] % (Auto) Eos % (Auto) Baso % (Auto) Lymph # [place] # Eos # Baso # Seg Neutrophils % Monocytes % (Manual) Monocytes # (Manual) D-Dimer ABG pH ABG pO2 ABG HCO3 ABG O2 Saturation ABG Base Excess ABG Hemoglobin Oxyhemoglobin Sodium 148 H D Potassium 5.1 H Chloride 111.9 H Carbon Dioxide BUN 26 H Creatinine Glucose 236 H POC Glucose 253 H Lactic Acid Calcium Magnesium AST 67 H ALT Lactate Dehydrogenase Total Creatine Kinase C-Reactive Protein Total Protein 5.9 L Albumin 2.8 L Free T4 Urine WBC (Auto) Urine Total Protein Digoxin Salicylates Acetaminophen 01/11/20 01/11/20 01/11/20 06:10 12:59 14:22 WBC RBC Hgb Hct MCV MCH MCHC RDW Plt Count Lymph % (Auto) [place] % (Auto) Eos % (Auto) Baso % (Auto) Lymph # [place] # Eos # Baso # Seg Neutrophils % Monocytes % (Manual) Monocytes # (Manual) D-Dimer ABG pH ABG pO2 ABG HCO3 ABG O2 Saturation ABG Base Excess ABG Hemoglobin Oxyhemoglobin Sodium Potassium Chloride Carbon Dioxide BUN Creatinine Glucose POC Glucose 261 H 234 H 220 H Lactic Acid Calcium Magnesium AST ALT Lactate Dehydrogenase Total Creatine Kinase C-Reactive Protein Total Protein Albumin Free T4 Urine WBC (Auto) Urine Total Protein Digoxin Salicylates Acetaminophen 01/11/20 01/11/20 01/12/20 17:18 21:20 00:45 WBC RBC Hgb Hct MCV MCH MCHC RDW Plt Count Lymph % (Auto) [place] % (Auto) Eos % (Auto) Baso % (Auto) Lymph # [place] # Eos # Baso # Seg Neutrophils % Monocytes % (Manual) Monocytes # (Manual) D-Dimer ABG pH ABG pO2 ABG HCO3 ABG O2 Saturation ABG Base Excess ABG Hemoglobin Oxyhemoglobin Sodium Potassium Chloride Carbon Dioxide BUN Creatinine Glucose POC Glucose 264 H 299 H 289 H Lactic Acid Calcium Magnesium AST ALT Lactate Dehydrogenase Total Creatine Kinase C-Reactive Protein Total Protein Albumin Free T4 Urine WBC (Auto) Urine Total Protein Digoxin Salicylates Acetaminophen 01/12/20 01/12/20 01/12/20 04:35 06:10 11:29 WBC RBC Hgb Hct MCV MCH MCHC RDW Plt Count Lymph % (Auto) [place] % (Auto) Eos % (Auto) Baso % (Auto) Lymph # [place] # Eos # Baso # Seg Neutrophils % Monocytes % (Manual) Monocytes # (Manual) D-Dimer ABG pH ABG pO2 ABG HCO3 ABG O2 Saturation ABG Base Excess ABG Hemoglobin Oxyhemoglobin Sodium Potassium Chloride Carbon Dioxide BUN Creatinine Glucose POC Glucose 187 H 194 H 213 H Lactic Acid Calcium Magnesium AST ALT Lactate Dehydrogenase Total Creatine Kinase C-Reactive Protein Total Protein Albumin Free T4 Urine WBC (Auto) Urine Total Protein Digoxin Salicylates Acetaminophen 01/12/20 01/12/20 01/12/20 14:40 18:50 21:34 WBC RBC Hgb Hct MCV MCH MCHC RDW Plt Count Lymph % (Auto) [place] % (Auto) Eos % (Auto) Baso % (Auto) Lymph # [place] # Eos # Baso # Seg Neutrophils % Monocytes % (Manual) Monocytes # (Manual) D-Dimer ABG pH ABG pO2 ABG HCO3 ABG O2 Saturation ABG Base Excess ABG Hemoglobin Oxyhemoglobin Sodium Potassium Chloride Carbon Dioxide BUN Creatinine Glucose POC Glucose 288 H 292 H 147 H Lactic Acid Calcium Magnesium AST ALT Lactate Dehydrogenase Total Creatine Kinase C-Reactive Protein Total Protein Albumin Free T4 Urine WBC (Auto) Urine Total Protein Digoxin Salicylates Acetaminophen 01/12/20 01/13/20 01/13/20 23:16 04:00 05:27 WBC RBC Hgb Hct MCV MCH MCHC RDW Plt Count Lymph % (Auto) [place] % (Auto) Eos % (Auto) Baso % (Auto) Lymph # [place] # Eos # Baso # Seg Neutrophils % Monocytes % (Manual) Monocytes # (Manual) D-Dimer ABG pH ABG pO2 ABG HCO3 ABG O2 Saturation ABG Base Excess ABG Hemoglobin Oxyhemoglobin Sodium 149 H Potassium Chloride 112.4 H Carbon Dioxide 32 H BUN 28 H Creatinine Glucose 174 H POC Glucose 122 H 143 H Lactic Acid Calcium Magnesium AST ALT Lactate Dehydrogenase Total Creatine Kinase C-Reactive Protein Total Protein Albumin Free T4 Urine WBC (Auto) Urine Total Protein Digoxin Salicylates Acetaminophen 01/13/20 01/13/20 01/13/20 10:24 13:34 15:10 WBC RBC Hgb Hct MCV MCH MCHC RDW Plt Count Lymph % (Auto) [place] % (Auto) Eos % (Auto) Baso % (Auto) Lymph # [place] # Eos # Baso # Seg Neutrophils % Monocytes % (Manual) Monocytes # (Manual) D-Dimer ABG pH 7.223 L ABG pO2 ABG HCO3 33.1 H ABG O2 Saturation 94.7 L ABG Base Excess 4.2 H ABG Hemoglobin 8.5 L Oxyhemoglobin 92.1 L Sodium Potassium Chloride Carbon Dioxide BUN Creatinine Glucose POC Glucose 172 H 151 H Lactic Acid Calcium Magnesium AST ALT Lactate Dehydrogenase Total Creatine Kinase C-Reactive Protein Total Protein Albumin Free T4 Urine WBC (Auto) Urine Total Protein Digoxin Salicylates Acetaminophen 01/13/20 01/13/20 01/13/20 17:59 20:37 22:17 WBC RBC Hgb Hct MCV MCH MCHC RDW Plt Count Lymph % (Auto) [place] % (Auto) Eos % (Auto) Baso % (Auto) Lymph # [place] # Eos # Baso # Seg Neutrophils % Monocytes % (Manual) Monocytes # (Manual) D-Dimer ABG pH ABG pO2 ABG HCO3 ABG O2 Saturation ABG Base Excess ABG Hemoglobin Oxyhemoglobin Sodium Potassium Chloride Carbon Dioxide BUN Creatinine Glucose POC Glucose 114 H 152 H Lactic Acid Calcium Magnesium AST ALT Lactate Dehydrogenase Total Creatine Kinase C-Reactive Protein Total Protein Albumin Free T4 0.63 L Urine WBC (Auto) Urine Total Protein Digoxin Salicylates Acetaminophen 01/13/20 01/14/20 01/14/20 Unknown 02:10 05:20 WBC RBC 3.39 L Hgb 8.1 L Hct 28.4 L MCV MCH 24 L MCHC 29 L RDW 19.9 H Plt Count 713 H Lymph % (Auto) [place] % (Auto) 12.7 H Eos % (Auto) Baso % (Auto) 1.9 H Lymph # [place] # 1.3 H Eos # Baso # 0.2 H Seg Neutrophils % Monocytes % (Manual) Monocytes # (Manual) D-Dimer ABG pH ABG pO2 ABG HCO3 ABG O2 Saturation ABG Base Excess ABG Hemoglobin Oxyhemoglobin Sodium Potassium Chloride Carbon Dioxide BUN Creatinine Glucose POC Glucose 151 H 157 H Lactic Acid Calcium Magnesium AST ALT Lactate Dehydrogenase Total Creatine Kinase C-Reactive Protein Total Protein Albumin Free T4 Urine WBC (Auto) Urine Total Protein Digoxin Salicylates Acetaminophen 01/14/20 01/14/20 01/14/20 11:49 14:56 18:03 WBC RBC Hgb Hct MCV MCH MCHC RDW Plt Count Lymph % (Auto) [place] % (Auto) Eos % (Auto) Baso % (Auto) Lymph # [place] # Eos # Baso # Seg Neutrophils % Monocytes % (Manual) Monocytes # (Manual) D-Dimer ABG pH ABG pO2 ABG HCO3 ABG O2 Saturation ABG Base Excess ABG Hemoglobin Oxyhemoglobin Sodium Potassium Chloride Carbon Dioxide BUN Creatinine Glucose POC Glucose 139 H 112 H 134 H Lactic Acid Calcium Magnesium AST ALT Lactate Dehydrogenase Total Creatine Kinase C-Reactive Protein Total Protein Albumin Free T4 Urine WBC (Auto) Urine Total Protein Digoxin Salicylates Acetaminophen 01/14/20 01/15/20 01/15/20 22:03 02:21 05:28 WBC RBC Hgb Hct MCV MCH MCHC RDW Plt Count Lymph % (Auto) [place] % (Auto) Eos % (Auto) Baso % (Auto) Lymph # [place] # Eos # Baso # Seg Neutrophils % Monocytes % (Manual) Monocytes # (Manual) D-Dimer ABG pH ABG pO2 ABG HCO3 ABG O2 Saturation ABG Base Excess ABG Hemoglobin Oxyhemoglobin Sodium Potassium Chloride Carbon Dioxide BUN Creatinine Glucose POC Glucose 173 H 129 H 127 H Lactic Acid Calcium Magnesium AST ALT Lactate Dehydrogenase Total Creatine Kinase C-Reactive Protein Total Protein Albumin Free T4 Urine WBC (Auto) Urine Total Protein Digoxin Salicylates Acetaminophen 01/15/20 01/15/20 01/15/20 10:43 16:14 18:25 WBC RBC Hgb Hct MCV MCH MCHC RDW Plt Count Lymph % (Auto) [place] % (Auto) Eos % (Auto) Baso % (Auto) Lymph # [place] # Eos # Baso # Seg Neutrophils % Monocytes % (Manual) Monocytes # (Manual) D-Dimer ABG pH ABG pO2 ABG HCO3 ABG O2 Saturation ABG Base Excess ABG Hemoglobin Oxyhemoglobin Sodium Potassium Chloride Carbon Dioxide BUN Creatinine Glucose POC Glucose 150 H 133 H 166 H Lactic Acid Calcium Magnesium AST ALT Lactate Dehydrogenase Total Creatine Kinase C-Reactive Protein Total Protein Albumin Free T4 Urine WBC (Auto) Urine Total Protein Digoxin Salicylates Acetaminophen 01/15/20 01/16/20 01/16/20 23:03 02:11 06:00 WBC RBC 3.19 L Hgb 7.9 L Hct 26.2 L MCV 82 L MCH 25 L MCHC 30 L RDW 20.1 H Plt Count 466 H Lymph % (Auto) 12.9 L [place] % (Auto) 11.2 H Eos % (Auto) 11.0 H Baso % (Auto) Lymph # 1.1 L [place] # 0.9 H Eos # 0.9 H Baso # Seg Neutrophils % Monocytes % (Manual) Monocytes # (Manual) D-Dimer ABG pH ABG pO2 ABG HCO3 ABG O2 Saturation ABG Base Excess ABG Hemoglobin Oxyhemoglobin Sodium Potassium Chloride Carbon Dioxide BUN Creatinine Glucose POC Glucose 143 H 136 H Lactic Acid Calcium Magnesium AST ALT Lactate Dehydrogenase Total Creatine Kinase C-Reactive Protein Total Protein Albumin Free T4 Urine WBC (Auto) Urine Total Protein Digoxin Salicylates Acetaminophen 01/16/20 01/16/20 01/16/20 06:00 06:10 11:52 WBC RBC Hgb Hct MCV MCH MCHC RDW Plt Count Lymph % (Auto) [place] % (Auto) Eos % (Auto) Baso % (Auto) Lymph # [place] # Eos # Baso # Seg Neutrophils % Monocytes % (Manual) Monocytes # (Manual) D-Dimer ABG pH ABG pO2 ABG HCO3 ABG O2 Saturation ABG Base Excess ABG Hemoglobin Oxyhemoglobin Sodium 152 H Potassium Chloride 110.2 H Carbon Dioxide 36 H BUN 23 H Creatinine 0.7 L Glucose 161 H POC Glucose 192 H 184 H Lactic Acid Calcium Magnesium AST ALT Lactate Dehydrogenase Total Creatine Kinase C-Reactive Protein Total Protein Albumin Free T4 Urine WBC (Auto) Urine Total Protein Digoxin Salicylates Acetaminophen 01/16/20 01/16/20 01/16/20 15:15 17:12 22:12 WBC RBC Hgb Hct MCV MCH MCHC RDW Plt Count Lymph % (Auto) [place] % (Auto) Eos % (Auto) Baso % (Auto) Lymph # [place] # Eos # Baso # Seg Neutrophils % Monocytes % (Manual) Monocytes # (Manual) D-Dimer ABG pH ABG pO2 ABG HCO3 ABG O2 Saturation ABG Base Excess ABG Hemoglobin Oxyhemoglobin Sodium Potassium Chloride Carbon Dioxide BUN Creatinine Glucose POC Glucose 224 H 183 H 106 H Lactic Acid Calcium Magnesium AST ALT Lactate Dehydrogenase Total Creatine Kinase C-Reactive Protein Total Protein Albumin Free T4 Urine WBC (Auto) Urine Total Protein Digoxin Salicylates Acetaminophen 01/17/20 01/17/20 01/17/20 02:13 06:10 06:20 WBC RBC 3.50 L Hgb 8.6 L Hct 29.0 L MCV 83 L MCH 25 L MCHC 30 L RDW 21.1 H Plt Count 517 H Lymph % (Auto) [place] % (Auto) 9.7 H Eos % (Auto) 11.9 H Baso % (Auto) Lymph # [place] # Eos # 1.0 H Baso # Seg Neutrophils % Monocytes % (Manual) Monocytes # (Manual) D-Dimer ABG pH ABG pO2 ABG HCO3 ABG O2 Saturation ABG Base Excess ABG Hemoglobin Oxyhemoglobin Sodium Potassium Chloride Carbon Dioxide BUN Creatinine Glucose POC Glucose 164 H 178 H Lactic Acid Calcium Magnesium AST ALT Lactate Dehydrogenase Total Creatine Kinase C-Reactive Protein Total Protein Albumin Free T4 Urine WBC (Auto) Urine Total Protein Digoxin Salicylates Acetaminophen 01/17/20 01/17/20 01/17/20 06:20 10:48 13:23 WBC RBC Hgb Hct MCV MCH MCHC RDW Plt Count Lymph % (Auto) [place] % (Auto) Eos % (Auto) Baso % (Auto) Lymph # [place] # Eos # Baso # Seg Neutrophils % Monocytes % (Manual) Monocytes # (Manual) D-Dimer ABG pH ABG pO2 ABG HCO3 ABG O2 Saturation ABG Base Excess ABG Hemoglobin Oxyhemoglobin Sodium 148 H Potassium Chloride Carbon Dioxide 34 H BUN 21 H Creatinine 0.6 L Glucose 151 H POC Glucose 172 H 161 H Lactic Acid Calcium Magnesium AST ALT Lactate Dehydrogenase Total Creatine Kinase C-Reactive Protein Total Protein Albumin Free T4 Urine WBC (Auto) Urine Total Protein Digoxin Salicylates Acetaminophen 01/17/20 01/17/20 01/18/20 17:23 21:46 04:45 WBC RBC 3.28 L Hgb 8.0 L Hct 27.0 L MCV 82 L MCH 24 L MCHC 30 L RDW 21.0 H Plt Count 450 H Lymph % (Auto) [place] % (Auto) 11.5 H Eos % (Auto) 13.1 H Baso % (Auto) Lymph # [place] # Eos # 0.9 H Baso # Seg Neutrophils % Monocytes % (Manual) Monocytes # (Manual) D-Dimer ABG pH ABG pO2 ABG HCO3 ABG O2 Saturation ABG Base Excess ABG Hemoglobin Oxyhemoglobin Sodium Potassium Chloride Carbon Dioxide BUN Creatinine Glucose POC Glucose 138 H 106 H Lactic Acid Calcium Magnesium AST ALT Lactate Dehydrogenase Total Creatine Kinase C-Reactive Protein Total Protein Albumin Free T4 Urine WBC (Auto) Urine Total Protein Digoxin Salicylates Acetaminophen 01/18/20 01/18/20 01/18/20 04:45 10:38 12:19 WBC RBC Hgb Hct MCV MCH MCHC RDW Plt Count Lymph % (Auto) [place] % (Auto) Eos % (Auto) Baso % (Auto) Lymph # [place] # Eos # Baso # Seg Neutrophils % Monocytes % (Manual) Monocytes # (Manual) D-Dimer ABG pH ABG pO2 ABG HCO3 ABG O2 Saturation ABG Base Excess ABG Hemoglobin Oxyhemoglobin Sodium Potassium Chloride Carbon Dioxide 35 H BUN Creatinine Glucose 71 L POC Glucose 106 H 138 H Lactic Acid Calcium Magnesium AST ALT Lactate Dehydrogenase Total Creatine Kinase C-Reactive Protein Total Protein Albumin Free T4 Urine WBC (Auto) Urine Total Protein Digoxin Salicylates Acetaminophen 01/18/20 01/18/20 01/19/20 13:38 17:54 03:36 WBC RBC Hgb Hct MCV MCH MCHC RDW Plt Count Lymph % (Auto) [place] % (Auto) Eos % (Auto) Baso % (Auto) Lymph # [place] # Eos # Baso # Seg Neutrophils % Monocytes % (Manual) Monocytes # (Manual) D-Dimer ABG pH ABG pO2 ABG HCO3 ABG O2 Saturation ABG Base Excess ABG Hemoglobin Oxyhemoglobin Sodium Potassium Chloride Carbon Dioxide BUN Creatinine Glucose POC Glucose 129 H 144 H 185 H Lactic Acid Calcium Magnesium AST ALT Lactate Dehydrogenase Total Creatine Kinase C-Reactive Protein Total Protein Albumin Free T4 Urine WBC (Auto) Urine Total Protein Digoxin Salicylates Acetaminophen 01/19/20 01/19/20 01/19/20 05:45 05:45 06:16 WBC RBC 3.30 L Hgb 8.1 L Hct 27.2 L MCV 82 L MCH 25 L MCHC 30 L RDW 20.6 H Plt Count Lymph % (Auto) 10.3 L [place] % (Auto) 13.0 H Eos % (Auto) 7.9 H Baso % (Auto) Lymph # 0.8 L [place] # 1.0 H Eos # 0.6 H Baso # Seg Neutrophils % Monocytes % (Manual) Monocytes # (Manual) D-Dimer ABG pH ABG pO2 ABG HCO3 ABG O2 Saturation ABG Base Excess ABG Hemoglobin Oxyhemoglobin Sodium Potassium Chloride Carbon Dioxide 34 H BUN Creatinine Glucose 167 H POC Glucose 182 H Lactic Acid Calcium Magnesium AST ALT Lactate Dehydrogenase Total Creatine Kinase C-Reactive Protein Total Protein Albumin Free T4 Urine WBC (Auto) Urine Total Protein Digoxin Salicylates Acetaminophen 01/19/20 01/19/20 01/19/20 09:18 13:46 18:17 WBC RBC Hgb Hct MCV MCH MCHC RDW Plt Count Lymph % (Auto) [place] % (Auto) Eos % (Auto) Baso % (Auto) Lymph # [place] # Eos # Baso # Seg Neutrophils % Monocytes % (Manual) Monocytes # (Manual) D-Dimer ABG pH ABG pO2 ABG HCO3 ABG O2 Saturation ABG Base Excess ABG Hemoglobin Oxyhemoglobin Sodium Potassium Chloride Carbon Dioxide BUN Creatinine Glucose POC Glucose 181 H 238 H 189 H Lactic Acid Calcium Magnesium AST ALT Lactate Dehydrogenase Total Creatine Kinase C-Reactive Protein Total Protein Albumin Free T4 Urine WBC (Auto) Urine Total Protein Digoxin Salicylates Acetaminophen 01/19/20 01/20/20 01/20/20 22:19 02:08 05:54 WBC RBC Hgb Hct MCV MCH MCHC RDW Plt Count Lymph % (Auto) [place] % (Auto) Eos % (Auto) Baso % (Auto) Lymph # [place] # Eos # Baso # Seg Neutrophils % Monocytes % (Manual) Monocytes # (Manual) D-Dimer ABG pH ABG pO2 ABG HCO3 ABG O2 Saturation ABG Base Excess ABG Hemoglobin Oxyhemoglobin Sodium Potassium Chloride Carbon Dioxide BUN Creatinine Glucose POC Glucose 138 H 196 H 200 H Lactic Acid Calcium Magnesium AST ALT Lactate Dehydrogenase Total Creatine Kinase C-Reactive Protein Total Protein Albumin Free T4 Urine WBC (Auto) Urine Total Protein Digoxin Salicylates Acetaminophen 01/20/20 01/20/20 01/21/20 10:40 17:09 00:49 WBC RBC Hgb Hct MCV MCH MCHC RDW Plt Count Lymph % (Auto) [place] % (Auto) Eos % (Auto) Baso % (Auto) Lymph # [place] # Eos # Baso # Seg Neutrophils % Monocytes % (Manual) Monocytes # (Manual) D-Dimer ABG pH ABG pO2 ABG HCO3 ABG O2 Saturation ABG Base Excess ABG Hemoglobin Oxyhemoglobin Sodium Potassium Chloride Carbon Dioxide BUN Creatinine Glucose POC Glucose 163 H 135 H 174 H Lactic Acid Calcium Magnesium AST ALT Lactate Dehydrogenase Total Creatine Kinase C-Reactive Protein Total Protein Albumin Free T4 Urine WBC (Auto) Urine Total Protein Digoxin Salicylates Acetaminophen 01/21/20 01/21/20 01/21/20 05:47 13:01 13:01 WBC RBC 3.06 L Hgb 7.5 L Hct 25.5 L MCV 83 L MCH 24 L MCHC 29 L RDW 22.0 H Plt Count Lymph % (Auto) [place] % (Auto) Eos % (Auto) Baso % (Auto) Lymph # [place] # Eos # Baso # Seg Neutrophils % Monocytes % (Manual) 8.0 H Monocytes # (Manual) D-Dimer ABG pH ABG pO2 ABG HCO3 ABG O2 Saturation ABG Base Excess ABG Hemoglobin Oxyhemoglobin Sodium 151 H Potassium Chloride Carbon Dioxide 39 H BUN Creatinine Glucose 122 H POC Glucose 180 H Lactic Acid Calcium Magnesium AST ALT Lactate Dehydrogenase Total Creatine Kinase C-Reactive Protein Total Protein Albumin 2.7 L Free T4 Urine WBC (Auto) Urine Total Protein Digoxin Salicylates Acetaminophen 01/21/20 01/22/20 01/22/20 18:37 01:20 04:45 WBC RBC Hgb Hct MCV MCH MCHC RDW Plt Count Lymph % (Auto) [place] % (Auto) Eos % (Auto) Baso % (Auto) Lymph # [place] # Eos # Baso # Seg Neutrophils % Monocytes % (Manual) Monocytes # (Manual) D-Dimer ABG pH ABG pO2 174.7 H ABG HCO3 41.5 H ABG O2 Saturation ABG Base Excess 14.6 H ABG Hemoglobin 7.6 L Oxyhemoglobin Sodium Potassium Chloride Carbon Dioxide BUN Creatinine Glucose POC Glucose 198 H 190 H Lactic Acid Calcium Magnesium AST ALT Lactate Dehydrogenase Total Creatine Kinase C-Reactive Protein Total Protein Albumin Free T4 Urine WBC (Auto) Urine Total Protein Digoxin Salicylates Acetaminophen 01/22/20 05:46 WBC RBC Hgb Hct MCV MCH MCHC RDW Plt Count Lymph % (Auto) [place] % (Auto) Eos % (Auto) Baso % (Auto) Lymph # [place] # Eos # Baso # Seg Neutrophils % Monocytes % (Manual) Monocytes # (Manual) D-Dimer ABG pH ABG pO2 ABG HCO3 ABG O2 Saturation ABG Base Excess ABG Hemoglobin Oxyhemoglobin Sodium Potassium Chloride Carbon Dioxide BUN Creatinine Glucose POC Glucose 200 H Lactic Acid Calcium Magnesium AST ALT Lactate Dehydrogenase Total Creatine Kinase C-Reactive Protein Total Protein Albumin Free T4 Urine WBC (Auto) Urine Total Protein Digoxin Salicylates Acetaminophen Allied health notes reviewed: nursing
[2020-01-22] MEDS: fentaNYL 100 MCG/2 ML INJ IV PRN (19:48)
[2020-01-23] MEDS: FAMOTIDINE 20 MG TAB PO SCH ×3 (00:22→22:21)
[2020-01-23] MEDS: DOCUSATE SODIUM 100 MG/10 ML ORAL LIQD PO SCH ×3 (00:23→22:21)
[2020-01-23] MEDS: INSULIN GLARGINE 100 UNITS/ML SUB-Q SCH ×3 (00:23→22:30)
[2020-01-23] MEDS: POLYETHYLENE GLYCOL 3350 17 GM POWDER PO SCH ×2 (00:23→22:21)
[2020-01-23] MEDS: INSULIN LISPRO 100 UNIT/ML SUB-Q SCH ×4 (00:25→18:33)
[2020-01-23] MEDS: fentaNYL DRIP Premix 2,000 MCG/100 ML BAG IV SCH ×2 (02:30→11:33)
[2020-01-23] MEDS: LEVOTHYROXINE 88 MCG TAB PO SCH (06:17)
[2020-01-23] MEDS: IPRATROPIUM/ALBUTEROL SULFATE 3 ML AMPUL.NEB IH SCH ×2 (09:01→20:33)
[2020-01-23 10:15] LABS: ABG Base Excess 10.6 mmol/L (-2.0-3.0); ABG HCO3 36.9 mmol/L (20.0-26.0); ABG Methemoglobin 0.6 % (0.0-1.5); ABG Oxygen Saturation 96.9 % (95.0-99.0); ABG PH 7.385 pH Units (7.350-7.450); ABG PO2 86.3 mm Hg (80.0-90.0)
--- NOTE | 2020-01-23 10:19 | Progress Note ---
Assessment and Plan Assessment and plan: --COVID-19 negative x2 --Acute hypoxic respiratory failure; status post trach and PEG On vent, continue tracheostomy and supportive care --Sepsis with septic shock; monitor off vasopressors Supportive care --Bilateral pneumonia;Completed antibiotics, monitor off antibiotics, Ventilatory support --Acute kidney injury/ATN; Resolved, avoid nephrotoxins --Obesity; BMI 33.1 Patient needs weight reduction when medically stable --Sinus bradycardia; present on admission Now resolved, heart rate in 70s, Cardiology following --Hypothyroidism; continue Synthroid --History of congestive heart failure --DVT prophylaxis Discharge planning per case management; CM assisting with LTAC placement Plan of care reviewed with the patient's nurse Personal Lines Advisor recommendations noted and appreciated Critical care time 32 minutes 01/18/20; patient underwent trach and PEG today, tolerated the procedure well 01/19/20; started on PEG feeds, tolerated well, awaiting LTAC/SNF placement 01/20/20; clinically stable, pending placement 01/22/20; monitor off pressors, awaiting LTAC placement 01/23/20; awaiting placement, patient is clinically stable The high probability of a clinically significant, sudden or life threatening deterioration of the [renal, respiratory and cardiac] system(s) required my full and direct attention, intervention and personal management. The aggregate critical care time was [32] minutes. This time is in addition to time spent performing reported procedures but includes the followin g: [x] Data Review and interpretation [x] Patient assessment and monitoring of vital signs [x] Documentation [x] Medication orders and management History Interval history: Seen and examined the patient in the bedside in ICU Patient status post trach and PEG On vent, unable to wean Awaiting placement Vital signs Hospitalist Physical - Constitutional Vitals: Temp Pulse Resp BP Pulse Ox 97.5 F L 110 H 20 134/71 95 01/23/20 03:46 01/23/20 08:18 01/23/20 05:00 01/23/20 08:18 01/23/20 08:18 General appearance: Present: no acute distress, well-nourished, obese, other (Tracheostomy on vent) - EENT Eyes: Present: PERRL, EOM intact - Neck Neck: Present: supple, normal ROM - Respiratory Respiratory effort: normal Respiratory: bilateral: diminished, rhonchi, negative: rales, wheezing - Cardiovascular Rhythm: regular Heart Sounds: Present: S1 & S2 - Extremities Extremities: no ischemia, No edema - Abdominal General gastrointestinal: soft, non-tender, non-distended, normal bowel sounds, other (PEG in place) - Integumentary Integumentary: Present: clear, warm - Psychiatric Psychiatric: other (Tracheostomy on vent) - Neurologic Neurologic: other (Tracheostomy on vent) HEART Score - HEART Score Troponin: Troponin T 0.011 ng/mL (0.00-0.029) 12/18/19 14:45 Results - Labs CBC & Chem 7: 01/21/20 13:01 01/21/20 13:01 Labs: Laboratory Last Values WBC 10.5 K/mm3 (4.5-11.0) 01/21/20 13:01 RBC 3.06 M/mm3 (3.65-5.03) L 01/21/20 13:01 Hgb 7.5 gm/dl (11.8-15.2) L 01/21/20 13:01 Hct 25.5 % (35.5-45.6) L 01/21/20 13:01 MCV 83 fl (84-94) L 01/21/20 13:01 MCH 24 pg (28-32) L 01/21/20 13:01 MCHC 29 % (32-34) L 01/21/20 13:01 RDW 22.0 % (13.2-15.2) H 01/21/20 13:01 Plt Count 307 K/mm3 (140-440) 01/21/20 13:01 Lymph % (Auto) 10.3 % (13.4-35.0) L 01/19/20 05:45 [place] % (Auto) Traffic Sign Erection Supervisor 01/21/20 13:01 Eos % (Auto) 7.9 % (0.0-4.3) H 01/19/20 05:45 Baso % (Auto) 0.6 % (0.0-1.8) 01/19/20 05:45 Lymph # 0.8 K/mm3 (1.2-5.4) L 01/19/20 05:45 [place] # 1.0 K/mm3 (0.0-0.8) H 01/19/20 05:45 Eos # 0.6 K/mm3 (0.0-0.4) H 01/19/20 05:45 Baso # 0.0 K/mm3 (0.0-0.1) 01/19/20 05:45 Add Manual Diff Complete 01/21/20 13:01 Total Counted 100 01/21/20 13:01 Seg Neutrophils % 68.2 % (40.0-70.0) 01/19/20 05:45 Seg Neuts % (Manual) 66.0 % (40.0-70.0) 01/21/20 13:01 Band Neutrophils % 0 % 01/21/20 13:01 Lymphocytes % (Manual) 21.0 % (13.4-35.0) 01/21/20 13:01 Reactive Lymphs % (Man) 0 % 01/21/20 13:01 Monocytes % (Manual) 8.0 % (0.0-7.3) H 01/21/20 13:01 Eosinophils % (Manual) 4.0 % (0.0-4.3) 01/21/20 13:01 Basophils % (Manual) 1.0 % (0.0-1.8) 01/21/20 13:01 Metamyelocytes % 0 % 01/21/20 13:01 Myelocytes % 0 % 01/21/20 13:01 Promyelocytes % 0 % 01/21/20 13:01 Blast Cells % 0 % 01/21/20 13:01 Nucleated RBC % Not Reportable 01/21/20 13:01 Seg Neutrophils # 5.3 K/mm3 (1.8-7.7) 01/19/20 05:45 Seg Neutrophils # Man 6.9 K/mm3 (1.8-7.7) 01/21/20 13:01 Band Neutrophils # 0.0 K/mm3 01/21/20 13:01 Lymphocytes # (Manual) 2.2 K/mm3 (1.2-5.4) 01/21/20 13:01 Abs React Lymphs (Man) 0.0 K/mm3 01/21/20 13:01 Monocytes # (Manual) 0.8 K/mm3 (0.0-0.8) 01/21/20 13:01 Eosinophils # (Manual) 0.4 K/mm3 (0.0-0.4) 01/21/20 13:01 Basophils # (Manual) 0.1 K/mm3 (0.0-0.1) 01/21/20 13:01 Metamyelocytes # 0.0 K/mm3 01/21/20 13:01 Myelocytes # 0.0 K/mm3 01/21/20 13:01 Promyelocytes # 0.0 K/mm3 01/21/20 13:01 Blast Cells # 0.0 K/mm3 01/21/20 13:01 WBC Morphology Not Reportable 01/21/20 13:01 Hypersegmented Neuts Not Reportable 01/21/20 13:01 Hyposegmented Neuts Not Reportable 01/21/20 13:01 Hypogranular Neuts Not Reportable 01/21/20 13:01 Smudge Cells Not Reportable 01/21/20 13:01 Toxic Granulation Not Reportable 01/21/20 13:01 Toxic Vacuolation Not Reportable 01/21/20 13:01 Dohle Bodies Not Reportable 01/21/20 13:01 Pelger-Huet Anomaly Not Reportable 01/21/20 13:01 Mervin Rods Not Reportable 01/21/20 13:01 Platelet Estimate Consistent w auto 01/21/20 13:01 Clumped Platelets Not Reportable 01/21/20 13:01 Plt Clumps, EDTA Not Reportable 01/21/20 13:01 Large Platelets Not Reportable 01/21/20 13:01 Giant Platelets Not Reportable 01/21/20 13:01 Platelet Satelliting Not Reportable 01/21/20 13:01 Plt Morphology Comment Not Reportable 01/21/20 13:01 RBC Morphology Not Reportable 01/21/20 13:01 Dimorphic RBCs Not Reportable 01/21/20 13:01 Polychromasia Not Reportable 01/21/20 13:01 Hypochromasia 2+ 01/21/20 13:01 Poikilocytosis Not Reportable 01/21/20 13:01 Anisocytosis Not Reportable 01/21/20 13:01 Microcytosis Not Reportable 01/21/20 13:01 Macrocytosis Not Reportable 01/21/20 13:01 Spherocytes Not Reportable 01/21/20 13:01 Pappenheimer Bodies Not Reportable 01/21/20 13:01 Sickle Cells Not Reportable 01/21/20 13:01 Target Cells Not Reportable 01/21/20 13:01 Tear Drop Cells Not Reportable 01/21/20 13:01 Ovalocytes Not Reportable 01/21/20 13:01 Stomatocytes 1+ 01/21/20 13:01 Helmet Cells Not Reportable 01/21/20 13:01 [place] Bodies Not Reportable 01/21/20 13:01 [place] Rings Not Reportable 01/21/20 13:01 [place] Cells Not Reportable 01/21/20 13:01 Bite Cells Not Reportable 01/21/20 13:01 Crenated Cell Not Reportable 01/21/20 13:01 Elliptocytes Not Reportable 01/21/20 13:01 Acanthocytes (Spur) Not Reportable 01/21/20 13:01 Rouleaux Not Reportable 01/21/20 13:01 Hemoglobin C Crystals Not Reportable 01/21/20 13:01 Schistocytes Not Reportable 01/21/20 13:01 Malaria parasites Not Reportable 01/21/20 13:01 Gianni Bodies Not Reportable 01/21/20 13:01 Hem Pathologist Commnt No 01/21/20 13:01 PT 13.3 Sec. (12.2-14.9) 01/18/20 04:45 INR 1.03 (0.87-1.13) 01/18/20 04:45 APTT 29.4 Sec. (24.2-36.6) 12/18/19 14:45 D-Dimer 534.45 ng/mlDDU (0-234) H 12/18/19 14:45 ABG pH 7.385 pH Units (7.350-7.450) 01/23/20 09:50 ABG pCO2 63.0 mm Hg 01/23/20 09:50 ABG pO2 86.3 mm Hg (80.0-90.0) 01/23/20 09:50 ABG HCO3 36.9 mmol/L (20.0-26.0) H 01/23/20 09:50 ABG O2 Saturation 96.9 % (95.0-99.0) 01/23/20 09:50 ABG O2 Content 9.9 (0.0-44) 01/23/20 09:50 ABG Base Excess 10.6 mmol/L (-2.0-3.0) H 01/23/20 09:50 ABG Hemoglobin 7.4 gm/dl (14.0-18.0) L 01/23/20 09:50 ABG Carboxyhemoglobin 2.6 % (0.0-5.0) 01/23/20 09:50 ABG Methemoglobin 0.6 % (0.0-1.5) 01/23/20 09:50 Oxyhemoglobin 93.9 % (95.0-99.0) L 01/23/20 09:50 FiO2 45 % 01/23/20 09:50 Sodium 151 mmol/L (137-145) H 01/21/20 13:01 Potassium 4.6 mmol/L (3.6-5.0) 01/21/20 13:01 Chloride 102.3 mmol/L (98-107) 01/21/20 13:01 Carbon Dioxide 39 mmol/L (22-30) H 01/21/20 13:01 Anion Gap 14 mmol/L 01/21/20 13:01 BUN 14 mg/dL (9-20) 01/21/20 13:01 Creatinine 1.2 mg/dL (0.8-1.5) 01/21/20 13:01 Estimated GFR > 60 ml/min 01/21/20 13:01 BUN/Creatinine Ratio 12 % 01/21/20 13:01 Glucose 122 mg/dL (75-100) H 01/21/20 13:01 POC Glucose 190 (70-105) H 01/23/20 05:34 Lactic Acid 1.70 mmol/L (0.7-2.0) 12/30/19 05:06 Calcium 9.8 mg/dL (8.4-10.2) 01/21/20 13:01 Phosphorus 3.70 mg/dL (2.5-4.5) 12/27/19 03:48 Magnesium 2.60 mg/dL (1.7-2.3) H 12/30/19 05:06 Ferritin 83.4 ng/mL (13.0-400.0) 12/18/19 14:45 Total Bilirubin 0.20 mg/dL (0.1-1.2) 01/21/20 13:01 AST 25 units/L (5-40) 01/21/20 13:01 ALT 29 units/L (7-56) 01/21/20 13:01 Alkaline Phosphatase 87 units/L (35-129) 01/21/20 13:01 Ammonia 39.0 umol/L (25-60) 12/18/19 14:45 Lactate Dehydrogenase 235 units/L (91-180) H 12/18/19 14:45 Lactate Dehydrogenase 236 units/L (91-180) H 12/18/19 14:45 Total Creatine Kinase 40 units/L (55-170) L 12/18/19 14:45 Troponin T 0.011 ng/mL (0.00-0.029) 12/18/19 14:45 C-Reactive Protein 8.40 mg/dL (0.00-1.30) H 12/18/19 14:45 C-Reactive Protein 8.50 mg/dL (0.00-1.30) H 12/18/19 14:45 Total Protein 6.5 g/dL (6.3-8.2) 01/21/20 13:01 Albumin 2.7 g/dL (3.9-5) L 01/21/20 13:01 Albumin/Globulin Ratio 0.7 % 01/21/20 13:01 Procalcitonin 0.22 ng/mL (<0.15) 12/18/19 14:45 TSH 1.460 mlU/mL (0.270-4.200) 01/13/20 20:37 Free T4 0.63 ng/dL (0.76-1.46) L 01/13/20 20:37 Urine Color Yellow (Yellow) 12/19/19 16:50 Urine Turbidity Clear (Clear) 12/19/19 16:50 Urine pH 5.0 (5.0-7.0) 12/19/19 16:50 Ur Specific [place] 1.010 (1.003-1.030) 12/19/19 16:50 Urine Protein <15 mg/dl mg/dL (Negative) 12/19/19 16:50 Urine Glucose (UA) 150 mg/dL (Negative) 12/19/19 16:50 Urine Ketones Neg mg/dL (Negative) 12/19/19 16:50 Urine Blood Neg (Negative) 12/19/19 16:50 Urine Nitrite Neg (Negative) 12/19/19 16:50 Urine Bilirubin Neg (Negative) 12/19/19 16:50 Urine Urobilinogen < 2.0 mg/dL (<2.0) 12/19/19 16:50 Ur Leukocyte Esterase Tr (Negative) 12/19/19 16:50 Urine WBC (Auto) 7.0 /HPF (0.0-6.0) H 12/19/19 16:50 Urine RBC (Auto) 4.0 /HPF (0.0-6.0) 12/19/19 16:50 U Epithel Cells (Auto) 1.0 /HPF (0-13.0) 12/19/19 16:50 Urine Bacteria (Auto) 1+ /HPF (Negative) 12/19/19 16:50 Urine Mucus Few /HPF 12/19/19 16:50 Urine Osmolality 140 Mosm/kg 12/25/19 16:45 Urine Creatinine < 4.2 mg/dL (0.1-20.0) 12/25/19 16:45 Urine Sodium 10 mmol/L 12/25/19 16:45 Urine Total Protein < 4 mg/dL (5-11.8) L 12/25/19 16:45 Digoxin 0.3 ng/mL (0.9-2.0) L 12/18/19 14:45 Salicylates < 0.3 mg/dL (2.8-20.0) L 12/18/19 14:45 Acetaminophen < 5.0 ug/mL (10.0-30.0) L 12/18/19 14:45 Plasma/Serum Alcohol < 0.01 % (0-0.07) 12/18/19 14:45 Coronavirus (PCR) Negative (Negative) 12/21/19 14:45 AFB Identification 01/05/20 09:05 Fungal Id Prelim 01/05/20 09:05 Blood Type A POSITIVE 01/18/20 04:45 Antibody Screen Negative 01/18/20 04:45 - Diagnostic Impressions Diagnostic Impressions: Echocardiogram 12/28/19 14:07 Transthoracic Echocardiogram Indication: SOB BP: 95/51 HR: 99 Conclusions *The left ventricular chamber size is mildly dilated. *There is no left ventricular hypertrophy. *Global left ventricular systolic function is mildly decreased. *The estimated ejection fraction is 45-50%. *Abnormal left ventricular diastolic filling is observed, consistent with impaired relaxation. *The right ventricular global systolic function is mildly reduced. *The right ventricular systolic pressure is calculated at 53 mmHg. Findings Left Ventricle: The left ventricular chamber size is mildly dilated. There is no left ventricular hypertrophy. Global left ventricular systolic function is mildly decreased. The estimated ejection fraction is 45-50%. Abnormal left ventricular diastolic filling is observed, consistent with impaired relaxation. Left Atrium: The left atrial chamber size is normal. Right Ventricle: The right ventricular cavity size is normal. The right ventricular global systolic function is mildly reduced. Right Atrium: The right atrial cavity size is normal. Aortic Valve: The aortic valve leaflets are mildly thickened. There is no evidence of aortic regurgitation. Mitral Valve: The mitral valve leaflets are mildly thickened. There is no evidence of mitral regurgitation. Tricuspid Valve: The tricuspid valve leaflets are normal. There is mild tricuspid regurgitation. The right ventricular systolic pressure is calculated at 53 mmHg. Pulmonic Valve: The pulmonic valve appears normal. There is trace pulmonic regurgitation. Pericardium: There is no pericardial effusion. Aorta: The aorta appears normal. Venous: The inferior vena cava is dilated. Measurements Chambers 2D Name Value Normal Range IVSd (2D) 1.08 cm (0.6 - 1.1) LVPWd (2D) 1 cm (0.6 - 1.1) LVIDd (2D) 4.67 cm (3.7 - 5.6) LVIDs (2D) 3.89 cm (2 - 3.8) LV FS (2D) 16.76 % - EF Teichholz (2D) 35.14 % - Ao root diameter (2D) 2.86 cm (2 - 3.7) Volumes/Mass Name Value Normal Range LA ESV SP 4CH (A/L) 31.8 ml - LA ESV SP 2CH (A/L) 27.37 ml - LA ESV BP (A/L) 33.43 ml - LA ESV BP (A/L) index 14.11 ml/m2 - LA ESV SP 4CH (MOD) 26.83 ml - LA ESV SP 2CH (MOD) 29.59 ml - LA ESV BP (MOD) 30.47 ml - LA ESV BP (MOD) index 12.86 ml/m2 - Diastolic/Systolic Function Name Value Normal Range MV E-wave Vmax 0.39 m/sec - MV deceleration time 115.69 msec - MV A-wave Vmax 0.63 m/sec - MV E:A ratio 0.62 ratio - Aortic Valve Name Value Normal Range AV Vmax 1.14 m/sec - AV VTI 20.1 cm - AV peak gradient 5.17 mmHg - AV mean gradient 3.89 mmHg - LVOT diameter 2.02 cm - LVOT Vmax 0.99 m/sec - LVOT VTI 16.45 cm - LVOT peak gradient 3.95 mmHg - LVOT mean gradient 2.45 mmHg - SV LVOT 52.45 ml - RALPH (continuity Vmax) 2.78 cm2 - RALPH (continuity VTI) 2.61 cm2 - Tricuspid Valve Name Value Normal Range TR Vmax 3.36 m/sec - TR peak gradient 45 mmHg - RAP 8 mmHg - RVSP 53 mmHg - IVC diameter 2.33 cm (1.2 - 2.3) Pulmonic Valve/Qp:Qs Name Value Normal Range PV Vmax 0.89 m/sec - PV peak gradient 3.16 mmHg - UT end-diastolic Vmax 1.42 m/sec - PV acceleration time 79.92 msec - Sykes/IV: Voiding Method Condom Catheter IV Catheter Type [Right Upper PICC Line arm] IV Catheter Type [Right Leg] Intra-osseous IV Catheter Type [Right Wrist] Peripheral IV IV Catheter Type [Right Hand] INT / Saline Lock IV Catheter Type [Left Hand] INT / Saline Lock IV Catheter Type [Left Forearm INT / Saline Lock ] IV Catheter Type [Left Triple Lumen Cath Internal Jugular] Active Medications - Current Medications Current Medications: Generic Name Dose Route Start Last Admin Trade Name Freq PRN Reason Stop Dose Admin Acetaminophen 650 mg 12/29/19 09:21 01/03/20 18:31 Tylenol PO 650 mg Q4H PRN Administration Non Cardiac Pain or Temp>100.5 Albuterol/Ipratropium 1 ampul 12/18/19 14:00 01/23/20 09:01 Duoneb *Not For Prn Use* IH 1 ampul TIDRT SHANEL Administration Lipase/Protease/Amylase 1 each 12/19/19 08:29 Erendira Cabrera 10,500 Unit FEEDTUBE PRN PRN For Clogged Feeding Tube Atropine Sulfate 1 mg 01/09/20 13:50 01/10/20 18:00 Atropine 0.1% (Cardiac) IV 1 mg PRN PRN Administration Bradycardia Bisacodyl 10 mg 01/02/20 15:48 01/02/20 18:25 Dulcolax UT 10 mg QDAY PRN Administration Constipation Dextrose 50 ml 01/18/20 08:22 01/18/20 09:17 D50w (25gm) Syringe IV 50 ml Q30MIN PRN Administration Hypoglycemia Protocol Docusate Sodium 100 mg 01/01/20 22:00 01/23/20 00:23 Colace PO 100 mg BID SHANEL Administration Famotidine 20 mg 12/20/19 10:00 01/23/20 00:22 Pepcid PO 20 mg BID SHANEL Administration Fentanyl 50 mcg 12/27/19 16:57 01/22/20 19:48 Sublimaze IV 50 mcg Q10MIN PRN Administration ANALGESIA Hydrophilic Ointment 1 applic 12/18/19 12:35 Vaseline Lip Therapy TP Q2HR PRN Dry Lips Fentanyl Citrate 2,000 mcg in 100 mls @ 5.85 mls/hr 12/27/19 17:00 01/23/20 02:30 Fentanyl Drip Premix IV 3 mcg/kg/hr TITR SHANEL 17.55 mls/hr Administration Protocol 1 MCG/KG/HR Norepinephrine 4 mg in 250 mls @ 7.5 mls/hr 12/28/19 15:00 01/21/20 00:23 Levophed Drip 4 Mg/Ns 250 Ml IV 0 mcg/min TITR SHANEL 0 mls/hr Titration Protocol 2 MCG/MIN Vasopressin 20 unit/ Sodium 101 mls @ 9.09 mls/hr 12/30/19 12:30 01/01/20 13:44 Chloride IV 0 units/min TITR SHANEL 0 mls/hr Titration Protocol 0.03 UNITS/MIN Dopamine HCl/Dextrose 800 mg in 250 mls @ 4.388 mls/hr 12/31/19 16:00 01/22/20 08:14 Intropin Drip 800 Mg/D5w 250 Ml IV 0 mcg/kg/min TITR SHANEL 0 mls/hr Titration Protocol 2 MCG/KG/MIN Insulin Glargine 15 units 01/10/20 14:00 01/23/20 00:23 Lantus SUB-Q 15 units BID SHANEL Administration Insulin Human Lispro 0 unit 01/20/20 18:00 01/23/20 06:17 Humalog SUB-Q 3 unit Q6HR SHANEL Administration Protocol Levothyroxine Sodium 88 mcg 12/19/19 06:00 01/23/20 06:17 Synthroid PO 88 mcg QAM@0600 SHANEL Administration Multi-Ingred Cream/Lotion/Oil/Oint 1 applic 12/18/19 12:35 Artificial Tears Ophth Oint OU Q4HR PRN Dry Eye(s) Polyethylene Glycol 17 gm 01/01/20 22:00 01/23/20 00:23 Miralax 3350 PO 17 gm QHS SHANEL Administration Simple Syrup 15 ml 12/19/19 08:29 01/06/20 04:58 Simple Syrup FEEDTUBE 15 ml PRN PRN Administration Hypoglycemia Simple Syrup 30 ml 12/19/19 08:29 Simple Syrup FEEDTUBE PRN PRN Hypoglycemia Sodium Bicarbonate 325 mg 12/19/19 08:29 Sodium Bicarbonate FEEDTUBE PRN PRN For Clogged Feeding Tube Sodium Chloride 10 ml 12/18/19 22:00 01/23/20 00:26 Sodium Chloride Flush Syringe 10 Ml IV 10 ml BID SHANEL Administration Sodium Chloride 10 ml 12/18/19 13:31 Sodium Chloride Flush Syringe 10 Ml IV PRN PRN LINE FLUSH Nutrition/Malnutrition Assess - Dietary Evaluation Nutrition/Malnutrition Findings: Nutrition Notes Start: 12/19/19 08:16 Freq: Status: Active Protocol: Document 01/20/20 11:39 LM (Rec: 01/20/20 11:42 LM [email or web address]) Nutrition Notes Initial or Follow up Reassessment Current Diagnosis Diabetes,Sepsis,Hypertension, Heart Failure,Respiratory Failure Other Pertinent Diagnosis COVID-19 (-), pneu Current Diet Vital AF 1.2 at 65ml/hr Labs/Tests POC glu 163 7/15 Na 144 Pertinent Medications Lantus Height 6 ft 2 in Weight 118.5 kg [place] Body Weight (kg) 86.36 BMI 33.5 Weight change and time frame Wt change noted Subjective/Other Information Vital running at 65 ml/hr and pt is tolerating TF. Percent of energy/protein needs met: 93%/68% Burn Absent Trauma Absent Current % PO Negligible Minimum of two criteria No physical signs of malnutrition #1 Nutrition Diagnosis Inadequate oral intake Diagnosis Progress(for reassessment Continues documentation) Is patient on ventilator? Yes Is Patient Ambulatory and/or Out of Bed No REE-(Silva-St. Jeor-confined to bed) 2487.948 Kcal/Kg value to use for calculation 17 Approximate Energy Requirements Using 2015 kcal/Kg Calculation Used for Recommendations Kcal/kg Additional Notes Protein: 172g (>/=2g/kg using IBW 86kg) Fluid 1ml/kcal Nutrition Intervention Change Diet Order: TF Nutrition Support: Vital AF 1.2 at 65ml/hr Flush 250ml q4h for hypernatremia Flush 100ml q4h Kcal 1,872 Protein (gm) 117 Fluid (mL) 1,265 Goal #1 TF tolerance Goal #2 Meet at least 75% of energy and protein needs Anticipated Discharge Needs: unable to determine at this time Follow-Up By: 01/25/20 Additional Comments Follow for TF tolerance and Na levels
--- NOTE | 2020-01-23 11:53 | Progress Note ---
Assessment and Plan Sinus bradycardia - resolved echo: LVEF 35-40% TSH 2.3 Pneumonia negative COVID PCR x 2 Acute Respiratory failure s/p trach Acute kidney injury - resolved Positive MRSA - sputum Anemia Recommendations: Conservative cardiac management. No new cardiac recommendations Subjective Date of service: 01/23/20 Principal diagnosis: Ac. Hypoxemic Resp Failure; Septic Shock; Magdiel. PNA; PUI COVID-19; CHF; JOE Interval history: Patient continues to be ventilated through trach No cardiac events on tele Objective Vital Signs Temp Pulse Pulse Pulse Resp Resp Resp 01/23/20 10:30 110 H 20 01/23/20 10:15 111 H 20 01/23/20 10:00 112 H 20 01/23/20 09:45 110 H 20 01/23/20 09:30 111 H 01/23/20 09:15 108 H 20 01/23/20 09:00 109 H 01/23/20 08:45 103 H 20 01/23/20 08:30 109 H 01/23/20 08:18 110 H 01/23/20 08:15 106 H 20 01/23/20 08:00 97.9 F 108 H 108 H 20 01/23/20 07:45 107 H 20 01/23/20 07:30 107 H 01/23/20 07:15 108 H 01/23/20 07:00 108 H 01/23/20 06:45 107 H 01/23/20 06:30 104 H 01/23/20 06:15 108 H 01/23/20 06:00 106 H 01/23/20 05:45 104 H 20 01/23/20 05:30 106 H 20 01/23/20 05:15 104 H 20 01/23/20 05:00 107 H 20 01/23/20 04:45 97 H 18 01/23/20 04:40 108 H 01/23/20 04:31 107 H 01/23/20 04:15 101 H 01/23/20 04:00 108 H 106 H 20 01/23/20 03:46 97.5 F L 01/23/20 03:45 106 H 20 01/23/20 03:30 103 H 01/23/20 03:15 107 H 20 01/23/20 03:00 107 H 01/23/20 02:45 108 H 20 01/23/20 02:30 108 H 20 01/23/20 02:15 106 H 20 01/23/20 02:00 107 H 20 01/23/20 01:45 107 H 20 01/23/20 01:30 107 H 20 01/23/20 01:15 107 H 20 01/23/20 01:00 106 H 20 01/23/20 00:45 106 H 20 01/23/20 00:30 106 H 20 01/23/20 00:15 106 H 20 01/23/20 00:00 100.6 F H 107 H 106 H 20 01/22/20 23:45 106 H 20 01/22/20 23:30 107 H 18 01/22/20 23:29 01/22/20 23:23 104 H 01/22/20 23:15 99 H 23 01/22/20 23:00 105 H 21 01/22/20 22:45 109 H 17 01/22/20 22:30 107 H 25 H 01/22/20 22:15 103 H 20 01/22/20 22:00 107 H 18 20 20 21:45 110 H 18 20 21:30 104 H 20 1820 21:29 104 H 20 21:27 111 H 20 20 21:15 109 H 21 20 21:00 108 H 21 1820 20:45 102 H 20 1820 20:30 105 H 21 1820 20:15 106 H 22 20 20:01 102 H 20 20 20:00 98.8 F 104 H 108 H 20 1820 19:45 96 H 19 1820 19:31 100 H 17 18/20 19:22 101 H 21 1820 19:15 94 H 20 1820 19:00 101 H 26 H 1820 18:45 101 H 16 1820 18:30 105 H 16 1820 18:15 103 H 20 1820 18:00 104 H 17 1820 17:45 102 H 20 1820 17:30 103 H 21 1820 17:15 101 H 20 01/22/20 17:01 94 H 19 20 16:45 102 H 20 01/22/20 16:30 104 H 20 01/22/20 16:15 104 H 19 01/22/20 16:00 99.9 F H 107 H 107 H 20 01/22/20 15:45 104 H 20 01/22/20 15:30 102 H 15 01/22/20 15:15 98 H 20 01/22/20 15:10 100 H 01/22/20 15:08 98 H 20 01/22/20 15:00 101 H 20 01/22/20 14:45 104 H 20 01/22/20 14:30 101 H 20 01/22/20 14:15 102 H 18 01/22/20 14:00 101 H 20 01/22/20 13:45 101 H 21 01/22/20 13:30 104 H 20 01/22/20 13:15 105 H 19 01/22/20 13:00 103 H 20 01/22/20 12:45 106 H 20 01/22/20 12:30 106 H 20 01/22/20 12:15 107 H 20 01/22/20 12:00 98.7 F 104 H 106 H 20 01/22/20 11:54 BP Pulse Ox Pulse Ox 01/23/20 10:30 108/54 94 01/23/20 10:15 104/52 95 01/23/20 10:00 112/55 95 01/23/20 09:45 107/55 95 01/23/20 09:30 103/54 96 01/23/20 09:15 109/49 95 01/23/20 09:00 113/45 94 01/23/20 08:45 134/71 84 01/23/20 08:30 136/70 85 01/23/20 08:18 134/71 95 01/23/20 08:15 122/65 90 01/23/20 08:00 124/63 90 01/23/20 07:45 109/56 91 01/23/20 07:30 118/58 92 01/23/20 07:15 139/65 86 01/23/20 07:00 139/65 92 01/23/20 06:45 134/65 91 01/23/20 06:30 137/65 90 07/19/20 06:15 136/72 91 07/19/20 06:00 131/67 91 07/19/20 05:45 128/69 88 07/19/20 05:30 127/66 91 07/19/20 05:15 131/68 86 07/19/20 05:00 122/65 91 07/19/20 04:45 185/75 90 07/19/20 04:40 129/69 98 07/19/20 04:31 146/108 83 L 0720 04:15 140/74 84 07/19/20 04:00 131/69 91 0719/20 03:46 07/19/20 03:45 118/66 91 07/19/20 03:30 125/78 91 0719/20 03:15 128/69 92 07/20 03:00 126/66 92 0719/20 02:45 134/65 92 0719/20 02:30 135/69 93 07/19/20 02:15 140/65 92 0719/20 02:00 132/68 92 0719/20 01:45 130/64 91 07/19/20 01:30 125/66 92 07/19/20 01:15 129/65 91 07/19/20 01:00 125/72 90 07/19/20 00:45 125/66 90 07/19/20 00:30 129/66 93 07/19/20 00:15 124/62 92 07/19/20 00:00 132/61 94 07/18/20 23:45 128/66 93 07/18/20 23:30 130/57 94 07/18/20 23:29 94 07/18/20 23:23 157/67 94 07/18/20 23:15 136/82 90 07/18/20 23:00 131/62 91 07/18/20 22:45 128/73 93 07/18/20 22:30 127/71 93 07/18/20 22:15 145/79 91 07/18/20 22:00 142/83 94 07/18/20 21:45 139/87 92 07/18/20 21:30 157/67 92 07/18/20 21:29 157/67 95 07/18/20 21:27 07/18/20 21:15 145/76 94 07/18/20 21:00 137/85 93 07/18/20 20:45 139/79 93 07/18/20 20:30 158/77 93 07/18/20 20:15 137/82 92 07/18/20 20:01 148/75 93 07/18/20 20:00 157/81 93 07/18/20 19:45 151/76 92 07/18/20 19:31 149/77 92 07/18/20 19:22 122/61 92 07/18/20 19:15 148/75 92 07/18/20 19:00 137/86 91 07/18/20 18:45 150/79 91 07/18/20 18:30 140/82 95 07/18/20 18:15 121/82 94 07/18/20 18:00 137/86 96 07/18/20 17:45 130/78 95 07/18/20 17:30 136/82 96 07/18/20 17:15 143/79 94 0718/20 17:01 129/67 07/18/20 16:45 129/67 93 07/18/20 16:30 122/72 95 07/18/20 16:15 131/76 95 07/18/20 16:00 112/76 93 07/18/20 15:45 123/69 93 07/18/20 15:30 122/68 92 07/18/20 15:15 122/61 93 07/18/20 15:10 135/71 100 07/18/20 15:08 /18/20 15:00 135/71 95 07/18/20 14:45 134/75 96 07/18/20 14:30 130/70 95 07/18/20 14:15 140/75 94 07/18/20 14:00 117/75 95 07/18/20 13:45 128/74 95 07/18/20 13:30 145/76 95 07/18/20 13:15 136/70 95 07/18/20 13:00 153/68 95 07/18/20 12:45 148/73 97 07/18/20 12:30 150/74 97 07/18/20 12:15 140/80 99 07/18/20 12:00 153/84 97 /18/20 11:54 94 - Physical Examination General: Other (Sedated, with a trach on the vent) HEENT: Positive: PERRL Neck: Positive: neck supple, Other (vent to trach) Cardiac: Positive: Regular Rate, Tachycardia Lungs: Positive: Ventilated Respirations Neuro: Positive: Other (Sedated, with a trach on the vent) Abdomen: Positive: Soft Skin: Positive: Clear Extremities: Absent: edema - Allied health notes Allied health notes reviewed: nursing
--- NOTE | 2020-01-23 14:39 | Progress Note ---
Assessment and Plan Acute Hypoxemic Respiratory Failure Severe Sepsis with Shock Bilateral Pneumonia PUI COVID-19 Morbid Obesity H/O CHF JOE - repeat CXR in am - reduced rate to 12/min - repeat ABG at 9 pm tonight - folow am labs - no new issues otherwise, continue care as below; - continue bowel regimen - keep peep at 8 cm H2O re: bibasilar atelectasis - prn CXR's & ABG's at this point - Daily SAT and SBT assessment as tolerated - accuchecks with glycemic control per SSI (While critically ill target blood glucose of 140-180 mg/dL; avoid hypoglycemia) - sedation for target RASS 0 to -1 - continue to wean supplemental oxygen for target O2 sat's > 92% acutely - continue bronchodilators with pulmonary hygiene per RT - VAP bundle addressed - lung protective strategies - wean per pulmonary driven protocols otherwise - continue to avoid benzodiazepine's, reduce the possibility of delirium - adjust AB's per ID rec's - prn analgesia per CPOT score - Maintenance of sleep-wake cycle - continue to avoid benzodiazepine's, reduce the possibility of delirium - continue enteral nutritional support at goal rate as tolerated - G.I. & VTE prophylaxis - PT/OT/ROM exercises - continue mobility protocols for pressure ulcer prophylaxis - repeat COVID-19 test negative - continue aspiration precautions - continue accuchecks with glycemic control per SSI (While critically ill target blood glucose of 140-180 mg/dL; avoid hypoglycemia) - Monitor hemodynamics closely - continue other care per attending / other consultants - discharge planning ongoing concurrently - LTAC evaluation ongoing .... Re-evaluate in am & prn CONDITION: CRITICAL PROGNOSIS: GUARDED CODE STATUS: FULL CODE The high probability of a clinically significant, sudden or life-threatening deterioration of the [respiratory, cardiovascular, GI & neurologic] system(s) required my full and direct attention, intervention and personal management. The aggregate critical care time was [35] minutes without overlap. Time includes spent on; [x] Data Review and interpretation [x] Patient assessment and monitoring of vital signs [x] Documentation [x] Medication orders and management Subjective Date of service: 01/23/20 Principal diagnosis: Ac. Hypoxemic Resp Failure; Septic Shock; Magdiel. PNA; PUI COVID-19; CHF; JOE Interval history: Patient is seen today for: Acute Hypoxemic Respiratory Failure; Severe Sepsis with Shock; Bilateral Pneumonia; PUI COVID-19; Morbid Obesity; H/O CHF; JOE Seen and examined at bedside; 24hour events reviewed; nursing and respiratory care staff consulted; no adverse overnight events reported to me; resting peacefully in bed; remains on MVS; ABG reviewed and addressed; sedated; No N/V/F/C Objective Vital Signs - 12hr 01/23/20 01/23/20 01/23/20 02:45 03:00 03:15 Temperature Pulse Rate 108 H 107 H 107 H Pulse Rate [ Bilateral] Pulse Rate [ From Monitor] Respiratory 20 20 20 Rate Respiratory Rate [Bilateral ] Respiratory Rate [pt denies ] Blood Pressure 134/65 126/66 128/69 O2 Sat by Pulse 92 92 92 Oximetry O2 Sat by Pulse Oximetry [ Assessment] 01/23/20 01/23/20 01/23/20 03:30 03:45 03:46 Temperature 97.5 F L Pulse Rate 103 H 106 H Pulse Rate [ Bilateral] Pulse Rate [ From Monitor] Respiratory 19 20 Rate Respiratory Rate [Bilateral ] Respiratory Rate [pt denies ] Blood Pressure 125/78 118/66 O2 Sat by Pulse 91 91 Oximetry O2 Sat by Pulse Oximetry [ Assessment] 01/23/20 01/23/20 01/23/20 04:00 04:15 04:31 Temperature Pulse Rate 108 H 101 H 107 H Pulse Rate [ Bilateral] Pulse Rate [ 106 H From Monitor] Respiratory 20 20 23 Rate Respiratory Rate [Bilateral ] Respiratory Rate [pt denies ] Blood Pressure 131/69 140/74 146/108 O2 Sat by Pulse 91 84 83 L Oximetry O2 Sat by Pulse Oximetry [ Assessment] 01/23/20 01/23/20 01/23/20 04:40 04:45 05:00 Temperature Pulse Rate 108 H 97 H 107 H Pulse Rate [ Bilateral] Pulse Rate [ From Monitor] Respiratory 18 20 Rate Respiratory Rate [Bilateral ] Respiratory Rate [pt denies ] Blood Pressure 129/69 185/75 122/65 O2 Sat by Pulse 98 90 91 Oximetry O2 Sat by Pulse Oximetry [ Assessment] 01/23/20 01/23/20 01/23/20 05:15 05:30 05:45 Temperature Pulse Rate 104 H 106 H 104 H Pulse Rate [ Bilateral] Pulse Rate [ From Monitor] Respiratory 20 20 20 Rate Respiratory Rate [Bilateral ] Respiratory Rate [pt denies ] Blood Pressure 131/68 127/66 128/69 O2 Sat by Pulse 86 91 88 Oximetry O2 Sat by Pulse Oximetry [ Assessment] 01/23/20 01/23/20 01/23/20 06:00 06:15 06:30 Temperature Pulse Rate 106 H 108 H 104 H Pulse Rate [ Bilateral] Pulse Rate [ From Monitor] Respiratory 20 19 20 Rate Respiratory Rate [Bilateral ] Respiratory Rate [pt denies ] Blood Pressure 131/67 136/72 137/65 O2 Sat by Pulse 91 91 90 Oximetry O2 Sat by Pulse Oximetry [ Assessment] 01/23/20 01/23/20 01/23/20 06:45 07:00 07:15 Temperature Pulse Rate 107 H 108 H 108 H Pulse Rate [ Bilateral] Pulse Rate [ From Monitor] Respiratory 20 20 21 Rate Respiratory Rate [Bilateral ] Respiratory Rate [pt denies ] Blood Pressure 134/65 139/65 139/65 O2 Sat by Pulse 91 92 86 Oximetry O2 Sat by Pulse Oximetry [ Assessment] 01/23/20 01/23/20 01/23/20 07:30 07:45 08:00 Temperature 97.9 F Pulse Rate 107 H 107 H 108 H Pulse Rate [ 104 H Bilateral] Pulse Rate [ 108 H From Monitor] Respiratory 20 20 20 Rate Respiratory 20 Rate [Bilateral ] Respiratory Rate [pt denies ] Blood Pressure 118/58 109/56 124/63 O2 Sat by Pulse 92 91 90 Oximetry O2 Sat by Pulse 97 Oximetry [ Assessment] 01/23/20 01/23/20 01/23/20 08:15 08:18 08:30 Temperature Pulse Rate 106 H 110 H 109 H Pulse Rate [ Bilateral] Pulse Rate [ From Monitor] Respiratory 20 21 Rate Respiratory Rate [Bilateral ] Respiratory Rate [pt denies ] Blood Pressure 122/65 134/71 136/70 O2 Sat by Pulse 90 95 85 Oximetry O2 Sat by Pulse Oximetry [ Assessment] 01/23/20 01/23/20 01/23/20 08:45 09:00 09:15 Temperature Pulse Rate 103 H 109 H 108 H Pulse Rate [ Bilateral] Pulse Rate [ From Monitor] Respiratory 20 20 20 Rate Respiratory Rate [Bilateral ] Respiratory Rate [pt denies ] Blood Pressure 134/71 113/45 109/49 O2 Sat by Pulse 84 94 95 Oximetry O2 Sat by Pulse Oximetry [ Assessment] 01/23/20 01/23/20 01/23/20 09:30 09:45 10:00 Temperature Pulse Rate 111 H 110 H 112 H Pulse Rate [ Bilateral] Pulse Rate [ From Monitor] Respiratory 20 20 20 Rate Respiratory Rate [Bilateral ] Respiratory 20 Rate [pt denies ] Blood Pressure 103/54 107/55 112/55 O2 Sat by Pulse 96 95 95 Oximetry O2 Sat by Pulse Oximetry [ Assessment] 01/23/20 01/23/20 01/23/20 10:15 10:30 10:45 Temperature Pulse Rate 111 H 110 H 109 H Pulse Rate [ Bilateral] Pulse Rate [ From Monitor] Respiratory 20 20 20 Rate Respiratory Rate [Bilateral ] Respiratory Rate [pt denies ] Blood Pressure 104/52 108/54 109/56 O2 Sat by Pulse 95 94 93 Oximetry O2 Sat by Pulse Oximetry [ Assessment] 01/23/20 01/23/20 01/23/20 11:00 11:15 11:30 Temperature Pulse Rate 109 H 108 H 109 H Pulse Rate [ Bilateral] Pulse Rate [ From Monitor] Respiratory 20 20 17 Rate Respiratory Rate [Bilateral ] Respiratory Rate [pt denies ] Blood Pressure 109/55 114/57 105/59 O2 Sat by Pulse 94 95 96 Oximetry O2 Sat by Pulse Oximetry [ Assessment] 01/23/20 01/23/20 01/23/20 11:45 12:00 12:15 Temperature Pulse Rate 110 H 107 H 109 H Pulse Rate [ Bilateral] Pulse Rate [ 107 H From Monitor] Respiratory 18 25 H 25 H Rate Respiratory Rate [Bilateral ] Respiratory Rate [pt denies ] Blood Pressure 106/53 100/53 107/44 O2 Sat by Pulse 96 96 95 Oximetry O2 Sat by Pulse Oximetry [ Assessment] 01/23/20 01/23/20 01/23/20 12:30 12:45 12:48 Temperature Pulse Rate 106 H 104 H 103 H Pulse Rate [ Bilateral] Pulse Rate [ From Monitor] Respiratory 25 H 25 H Rate Respiratory Rate [Bilateral ] Respiratory Rate [pt denies ] Blood Pressure 98/46 104/48 104/48 O2 Sat by Pulse 96 95 98 Oximetry O2 Sat by Pulse Oximetry [ Assessment] 01/23/20 01/23/20 01/23/20 13:00 13:15 13:30 Temperature Pulse Rate 106 H 103 H 103 H Pulse Rate [ Bilateral] Pulse Rate [ From Monitor] Respiratory 25 H 26 H 25 H Rate Respiratory Rate [Bilateral ] Respiratory Rate [pt denies ] Blood Pressure 112/58 120/52 120/54 O2 Sat by Pulse 95 95 95 Oximetry O2 Sat by Pulse Oximetry [ Assessment] 01/23/20 01/23/20 01/23/20 13:45 14:00 14:15 Temperature Pulse Rate 106 H 105 H 105 H Pulse Rate [ Bilateral] Pulse Rate [ From Monitor] Respiratory 25 H 25 H 24 Rate Respiratory Rate [Bilateral ] Respiratory Rate [pt denies ] Blood Pressure 110/47 103/47 105/50 O2 Sat by Pulse 96 96 95 Oximetry O2 Sat by Pulse Oximetry [ Assessment] Constitutional: no acute distress, other (elderly obese AAM with mildly increrased respiratory effort at rest on MVS) Eyes: non-icteric ENT: oropharynx moist, other (s/p trachepstomy) Neck: supple, no lymphadenopathy, no JVD Effort: mildly labored Ascultation: Bilateral: diminished breath sounds, rhonchi, other (diminished bibasilar air entry) Percussion: Bilateral: not dull Cardiovascular: regular rate and rhythm, other (S1,S2) Gastrointestinal: normoactive bowel sounds, soft, non-tender, other (protuberant) Integumentary: rash (stasis dermatyitis) Extremities: no cyanosis, pink and warm, pulses normal, no ischemia or petechiae, edema (trace) Neurologic: normal mental status, non-focal exam, pupils equal and round, CN II- XII normal, motor strength normal and (obeys simple commands) Psychiatric: mood appropriate, affect normal CBC and BMP: 01/21/20 13:01 01/21/20 13:01 ABG, PT/INR, D-dimer: ABG ABG pH 7.385 pH Units (7.350-7.450) 01/23/20 09:50 ABG pCO2 63.0 mm Hg 01/23/20 09:50 ABG pO2 86.3 mm Hg (80.0-90.0) 01/23/20 09:50 ABG O2 Saturation 96.9 % (95.0-99.0) 01/23/20 09:50 PT/INR, D-dimer PT 13.3 Sec. (12.2-14.9) 01/18/20 04:45 INR 1.03 (0.87-1.13) 01/18/20 04:45 D-Dimer 534.45 ng/mlDDU (0-234) H 12/18/19 14:45 Abnormal lab findings: Abnormal Labs 12/18/19 12/18/19 12/18/19 12:23 14:45 14:45 WBC RBC Hgb 10.4 L Hct 35.2 L MCV MCH 25 L MCHC 30 L RDW 18.8 H Plt Count Lymph % (Auto) [place] % (Auto) 11.6 H Eos % (Auto) 4.8 H Baso % (Auto) Lymph # [place] # 1.0 H Eos # Baso # Seg Neutrophils % Monocytes % (Manual) Monocytes # (Manual) D-Dimer ABG pH ABG pO2 ABG HCO3 ABG O2 Saturation ABG Base Excess ABG Hemoglobin Oxyhemoglobin Sodium Potassium Chloride Carbon Dioxide BUN Creatinine Glucose POC Glucose 328 H Lactic Acid Calcium Magnesium AST ALT Lactate Dehydrogenase Total Creatine Kinase 40 L C-Reactive Protein Total Protein Albumin Free T4 Urine WBC (Auto) Urine Total Protein Digoxin Salicylates Acetaminophen 12/18/19 12/18/19 12/18/19 14:45 14:45 14:45 WBC RBC Hgb Hct MCV MCH MCHC RDW Plt Count Lymph % (Auto) [place] % (Auto) Eos % (Auto) Baso % (Auto) Lymph # [place] # Eos # Baso # Seg Neutrophils % Monocytes % (Manual) Monocytes # (Manual) D-Dimer 534.45 H ABG pH ABG pO2 ABG HCO3 ABG O2 Saturation ABG Base Excess ABG Hemoglobin Oxyhemoglobin Sodium 156 H Potassium Chloride 112.3 H Carbon Dioxide 31 H BUN 32 H Creatinine Glucose 328 H POC Glucose Lactic Acid Calcium Magnesium AST ALT Lactate Dehydrogenase 235 H Total Creatine Kinase C-Reactive Protein 8.50 H Total Protein Albumin 3.6 L Free T4 Urine WBC (Auto) Urine Total Protein Digoxin 0.3 L Salicylates < 0.3 L Acetaminophen 12/18/19 12/18/19 12/18/19 14:45 14:45 16:00 WBC RBC Hgb Hct MCV MCH MCHC RDW Plt Count Lymph % (Auto) [place] % (Auto) Eos % (Auto) Baso % (Auto) Lymph # [place] # Eos # Baso # Seg Neutrophils % Monocytes % (Manual) Monocytes # (Manual) D-Dimer ABG pH ABG pO2 69.8 L ABG HCO3 31.8 H ABG O2 Saturation ABG Base Excess 5.4 H ABG Hemoglobin 10.0 L Oxyhemoglobin 92.9 L Sodium Potassium Chloride Carbon Dioxide BUN Creatinine Glucose 314 H POC Glucose Lactic Acid Calcium Magnesium AST ALT Lactate Dehydrogenase 236 H Total Creatine Kinase C-Reactive Protein 8.40 H Total Protein Albumin Free T4 Urine WBC (Auto) Urine Total Protein Digoxin Salicylates Acetaminophen < 5.0 L 12/18/19 12/18/19 12/18/19 16:35 18:30 22:56 WBC RBC Hgb Hct MCV MCH MCHC RDW Plt Count Lymph % (Auto) [place] % (Auto) Eos % (Auto) Baso % (Auto) Lymph # [place] # Eos # Baso # Seg Neutrophils % Monocytes % (Manual) Monocytes # (Manual) D-Dimer ABG pH ABG pO2 ABG HCO3 ABG O2 Saturation ABG Base Excess ABG Hemoglobin Oxyhemoglobin Sodium Potassium Chloride Carbon Dioxide BUN Creatinine Glucose POC Glucose 310 H 353 H Lactic Acid 2.50 H* Calcium Magnesium AST ALT Lactate Dehydrogenase Total Creatine Kinase C-Reactive Protein Total Protein Albumin Free T4 Urine WBC (Auto) Urine Total Protein Digoxin Salicylates Acetaminophen 12/19/19 12/19/19 12/19/19 04:13 04:13 06:00 WBC RBC Hgb 10.0 L Hct 34.2 L MCV MCH 25 L MCHC 29 L RDW 19.0 H Plt Count Lymph % (Auto) [place] % (Auto) 10.1 H Eos % (Auto) Baso % (Auto) Lymph # [place] # 1.1 H Eos # Baso # Seg Neutrophils % 71.8 H Monocytes % (Manual) Monocytes # (Manual) D-Dimer ABG pH ABG pO2 186.5 H ABG HCO3 27.8 H ABG O2 Saturation 99.1 H ABG Base Excess ABG Hemoglobin 10.4 L Oxyhemoglobin Sodium 157 H Potassium Chloride 119.1 H Carbon Dioxide BUN 26 H Creatinine Glucose 302 H POC Glucose Lactic Acid Calcium 7.9 L Magnesium AST 85 H ALT 61 H Lactate Dehydrogenase Total Creatine Kinase C-Reactive Protein Total Protein Albumin 3.0 L Free T4 Urine WBC (Auto) Urine Total Protein Digoxin Salicylates Acetaminophen 12/19/19 12/19/19 12/19/19 08:30 11:55 16:50 WBC RBC Hgb Hct MCV MCH MCHC RDW Plt Count Lymph % (Auto) [place] % (Auto) Eos % (Auto) Baso % (Auto) Lymph # [place] # Eos # Baso # Seg Neutrophils % Monocytes % (Manual) Monocytes # (Manual) D-Dimer ABG pH ABG pO2 ABG HCO3 ABG O2 Saturation ABG Base Excess ABG Hemoglobin Oxyhemoglobin Sodium Potassium Chloride Carbon Dioxide BUN Creatinine Glucose POC Glucose 264 H 251 H Lactic Acid Calcium Magnesium AST ALT Lactate Dehydrogenase Total Creatine Kinase C-Reactive Protein Total Protein Albumin Free T4 Urine WBC (Auto) 7.0 H Urine Total Protein Digoxin Salicylates Acetaminophen 12/19/19 12/19/19 12/20/19 17:41 23:42 03:35 WBC RBC Hgb Hct MCV MCH MCHC RDW Plt Count Lymph % (Auto) [place] % (Auto) Eos % (Auto) Baso % (Auto) Lymph # [place] # Eos # Baso # Seg Neutrophils % Monocytes % (Manual) Monocytes # (Manual) D-Dimer ABG pH ABG pO2 ABG HCO3 27.7 H ABG O2 Saturation ABG Base Excess ABG Hemoglobin 11.6 L Oxyhemoglobin 94.9 L Sodium Potassium Chloride Carbon Dioxide BUN Creatinine Glucose POC Glucose 180 H 205 H Lactic Acid Calcium Magnesium AST ALT Lactate Dehydrogenase Total Creatine Kinase C-Reactive Protein Total Protein Albumin Free T4 Urine WBC (Auto) Urine Total Protein Digoxin Salicylates Acetaminophen 12/20/19 12/20/19 12/20/19 04:45 04:45 05:27 WBC RBC Hgb 9.4 L Hct 31.4 L MCV MCH 25 L MCHC 30 L RDW 19.4 H Plt Count Lymph % (Auto) [place] % (Auto) 10.2 H Eos % (Auto) 6.0 H Baso % (Auto) Lymph # 0.9 L [place] # Eos # Baso # Seg Neutrophils % Monocytes % (Manual) Monocytes # (Manual) D-Dimer ABG pH ABG pO2 ABG HCO3 ABG O2 Saturation ABG Base Excess ABG Hemoglobin Oxyhemoglobin Sodium 153 H Potassium Chloride 114.6 H Carbon Dioxide BUN Creatinine Glucose 170 H POC Glucose 188 H Lactic Acid Calcium 7.9 L Magnesium AST ALT Lactate Dehydrogenase Total Creatine Kinase C-Reactive Protein Total Protein Albumin Free T4 Urine WBC (Auto) Urine Total Protein Digoxin Salicylates Acetaminophen 12/20/19 12/20/19 12/21/19 12:26 18:20 00:20 WBC RBC Hgb Hct MCV MCH MCHC RDW Plt Count Lymph % (Auto) [place] % (Auto) Eos % (Auto) Baso % (Auto) Lymph # [place] # Eos # Baso # Seg Neutrophils % Monocytes % (Manual) Monocytes # (Manual) D-Dimer ABG pH ABG pO2 ABG HCO3 ABG O2 Saturation ABG Base Excess ABG Hemoglobin Oxyhemoglobin Sodium Potassium Chloride Carbon Dioxide BUN Creatinine Glucose POC Glucose 200 H 263 H 218 H Lactic Acid Calcium Magnesium AST ALT Lactate Dehydrogenase Total Creatine Kinase C-Reactive Protein Total Protein Albumin Free T4 Urine WBC (Auto) Urine Total Protein Digoxin Salicylates Acetaminophen 12/21/19 12/21/19 12/21/19 04:38 05:26 12:35 WBC RBC Hgb Hct MCV MCH MCHC RDW Plt Count Lymph % (Auto) [place] % (Auto) Eos % (Auto) Baso % (Auto) Lymph # [place] # Eos # Baso # Seg Neutrophils % Monocytes % (Manual) Monocytes # (Manual) D-Dimer ABG pH ABG pO2 ABG HCO3 ABG O2 Saturation ABG Base Excess ABG Hemoglobin Oxyhemoglobin Sodium 149 H Potassium 3.5 L Chloride 110.5 H Carbon Dioxide BUN Creatinine Glucose 158 H POC Glucose 193 H 193 H Lactic Acid Calcium Magnesium AST ALT Lactate Dehydrogenase Total Creatine Kinase C-Reactive Protein Total Protein Albumin Free T4 Urine WBC (Auto) Urine Total Protein Digoxin Salicylates Acetaminophen 12/21/19 12/22/19 12/22/19 18:29 00:03 05:15 WBC RBC Hgb 10.3 L Hct 34.7 L MCV MCH 25 L MCHC 30 L RDW 19.4 H Plt Count Lymph % (Auto) 9.0 L [place] % (Auto) 12.3 H Eos % (Auto) 5.0 H Baso % (Auto) Lymph # 0.5 L [place] # Eos # Baso # Seg Neutrophils % 73.2 H Monocytes % (Manual) Monocytes # (Manual) D-Dimer ABG pH ABG pO2 ABG HCO3 ABG O2 Saturation ABG Base Excess ABG Hemoglobin Oxyhemoglobin Sodium Potassium Chloride Carbon Dioxide BUN Creatinine Glucose POC Glucose 186 H 143 H Lactic Acid Calcium Magnesium AST ALT Lactate Dehydrogenase Total Creatine Kinase C-Reactive Protein Total Protein Albumin Free T4 Urine WBC (Auto) Urine Total Protein Digoxin Salicylates Acetaminophen 12/22/19 12/22/19 12/22/19 05:15 06:02 12:13 WBC RBC Hgb Hct MCV MCH MCHC RDW Plt Count Lymph % (Auto) [place] % (Auto) Eos % (Auto) Baso % (Auto) Lymph # [place] # Eos # Baso # Seg Neutrophils % Monocytes % (Manual) Monocytes # (Manual) D-Dimer ABG pH ABG pO2 ABG HCO3 ABG O2 Saturation ABG Base Excess ABG Hemoglobin Oxyhemoglobin Sodium 152 H Potassium Chloride 113.5 H Carbon Dioxide BUN Creatinine Glucose 126 H POC Glucose 144 H 159 H Lactic Acid Calcium Magnesium AST ALT Lactate Dehydrogenase Total Creatine Kinase C-Reactive Protein Total Protein Albumin Free T4 Urine WBC (Auto) Urine Total Protein Digoxin Salicylates Acetaminophen 12/22/19 12/22/19 12/23/19 18:03 23:50 05:27 WBC RBC Hgb Hct MCV MCH MCHC RDW Plt Count Lymph % (Auto) [place] % (Auto) Eos % (Auto) Baso % (Auto) Lymph # [place] # Eos # Baso # Seg Neutrophils % Monocytes % (Manual) Monocytes # (Manual) D-Dimer ABG pH ABG pO2 ABG HCO3 ABG O2 Saturation ABG Base Excess ABG Hemoglobin Oxyhemoglobin Sodium Potassium Chloride Carbon Dioxide BUN Creatinine Glucose POC Glucose 140 H 227 H 185 H Lactic Acid Calcium Magnesium AST ALT Lactate Dehydrogenase Total Creatine Kinase C-Reactive Protein Total Protein Albumin Free T4 Urine WBC (Auto) Urine Total Protein Digoxin Salicylates Acetaminophen 12/23/19 12/23/19 12/23/19 12:13 16:05 16:40 WBC RBC Hgb Hct MCV MCH MCHC RDW Plt Count Lymph % (Auto) [place] % (Auto) Eos % (Auto) Baso % (Auto) Lymph # [place] # Eos # Baso # Seg Neutrophils % Monocytes % (Manual) Monocytes # (Manual) D-Dimer ABG pH 7.259 L ABG pO2 76.2 L ABG HCO3 30.6 H ABG O2 Saturation 94.6 L ABG Base Excess ABG Hemoglobin 11.5 L Oxyhemoglobin 92.2 L Sodium 163 H* D Potassium 3.4 L Chloride 120.1 H Carbon Dioxide BUN Creatinine Glucose 162 H POC Glucose 132 H Lactic Acid Calcium Magnesium AST ALT Lactate Dehydrogenase Total Creatine Kinase C-Reactive Protein Total Protein Albumin Free T4 Urine WBC (Auto) Urine Total Protein Digoxin Salicylates Acetaminophen 12/23/19 12/24/19 12/24/19 17:53 00:48 04:20 WBC RBC Hgb Hct MCV MCH MCHC RDW Plt Count Lymph % (Auto) [place] % (Auto) Eos % (Auto) Baso % (Auto) Lymph # [place] # Eos # Baso # Seg Neutrophils % Monocytes % (Manual) Monocytes # (Manual) D-Dimer ABG pH ABG pO2 ABG HCO3 30.4 H ABG O2 Saturation ABG Base Excess 3.9 H ABG Hemoglobin 10.3 L Oxyhemoglobin 94.4 L Sodium Potassium Chloride Carbon Dioxide BUN Creatinine Glucose POC Glucose 180 H 174 H Lactic Acid Calcium Magnesium AST ALT Lactate Dehydrogenase Total Creatine Kinase C-Reactive Protein Total Protein Albumin Free T4 Urine WBC (Auto) Urine Total Protein Digoxin Salicylates Acetaminophen 12/24/19 12/24/19 12/24/19 04:53 04:53 11:50 WBC RBC Hgb 9.7 L Hct 33.2 L MCV MCH 25 L MCHC 29 L RDW 20.1 H Plt Count Lymph % (Auto) [place] % (Auto) Eos % (Auto) Baso % (Auto) Lymph # [place] # Eos # Baso # Seg Neutrophils % Monocytes % (Manual) 15.0 H Monocytes # (Manual) 0.9 H D-Dimer ABG pH ABG pO2 ABG HCO3 ABG O2 Saturation ABG Base Excess ABG Hemoglobin Oxyhemoglobin Sodium 163 H* Potassium 3.2 L Chloride 122.6 H Carbon Dioxide BUN Creatinine Glucose 168 H POC Glucose 190 H Lactic Acid Calcium Magnesium AST ALT Lactate Dehydrogenase Total Creatine Kinase C-Reactive Protein Total Protein Albumin Free T4 Urine WBC (Auto) Urine Total Protein Digoxin Salicylates Acetaminophen 12/24/19 12/24/19 12/24/19 15:00 16:28 21:15 WBC RBC Hgb Hct MCV MCH MCHC RDW Plt Count Lymph % (Auto) [place] % (Auto) Eos % (Auto) Baso % (Auto) Lymph # [place] # Eos # Baso # Seg Neutrophils % Monocytes % (Manual) Monocytes # (Manual) D-Dimer ABG pH ABG pO2 ABG HCO3 ABG O2 Saturation ABG Base Excess ABG Hemoglobin Oxyhemoglobin Sodium 165 H* D 163 H* Potassium Chloride Carbon Dioxide BUN Creatinine Glucose POC Glucose 160 H Lactic Acid Calcium Magnesium AST ALT Lactate Dehydrogenase Total Creatine Kinase C-Reactive Protein Total Protein Albumin Free T4 Urine WBC (Auto) Urine Total Protein Digoxin Salicylates Acetaminophen 12/25/19 12/25/19 12/25/19 00:31 05:38 05:46 WBC RBC Hgb 9.7 L Hct 32.5 L MCV MCH 25 L MCHC 30 L RDW 19.4 H Plt Count Lymph % (Auto) [place] % (Auto) Eos % (Auto) Baso % (Auto) Lymph # [place] # Eos # Baso # Seg Neutrophils % Monocytes % (Manual) Monocytes # (Manual) D-Dimer ABG pH ABG pO2 ABG HCO3 ABG O2 Saturation ABG Base Excess ABG Hemoglobin Oxyhemoglobin Sodium Potassium Chloride Carbon Dioxide BUN Creatinine Glucose POC Glucose 182 H 194 H Lactic Acid Calcium Magnesium AST ALT Lactate Dehydrogenase Total Creatine Kinase C-Reactive Protein Total Protein Albumin Free T4 Urine WBC (Auto) Urine Total Protein Digoxin Salicylates Acetaminophen 12/25/19 12/25/19 12/25/19 05:46 11:35 11:38 WBC RBC Hgb Hct MCV MCH MCHC RDW Plt Count Lymph % (Auto) [place] % (Auto) Eos % (Auto) Baso % (Auto) Lymph # [place] # Eos # Baso # Seg Neutrophils % Monocytes % (Manual) Monocytes # (Manual) D-Dimer ABG pH 7.330 L ABG pO2 65.7 L ABG HCO3 32.6 H ABG O2 Saturation 92.5 L ABG Base Excess 5.3 H ABG Hemoglobin 10.4 L Oxyhemoglobin 90.0 L Sodium 166 H* Potassium 2.9 L* Chloride 124.5 H Carbon Dioxide BUN Creatinine Glucose 190 H POC Glucose 192 H Lactic Acid Calcium Magnesium AST ALT Lactate Dehydrogenase Total Creatine Kinase C-Reactive Protein Total Protein Albumin Free T4 Urine WBC (Auto) Urine Total Protein Digoxin Salicylates Acetaminophen 12/25/19 12/25/19 12/25/19 13:01 16:45 17:20 WBC RBC Hgb Hct MCV MCH MCHC RDW Plt Count Lymph % (Auto) [place] % (Auto) Eos % (Auto) Baso % (Auto) Lymph # [place] # Eos # Baso # Seg Neutrophils % Monocytes % (Manual) Monocytes # (Manual) D-Dimer ABG pH 7.296 L ABG pO2 101.5 H ABG HCO3 33.2 H ABG O2 Saturation ABG Base Excess 5.3 H ABG Hemoglobin 9.6 L Oxyhemoglobin 94.6 L Sodium 174 H* Potassium Chloride Carbon Dioxide BUN Creatinine Glucose POC Glucose Lactic Acid Calcium Magnesium AST ALT Lactate Dehydrogenase Total Creatine Kinase C-Reactive Protein Total Protein Albumin Free T4 Urine WBC (Auto) Urine Total Protein < 4 L Digoxin Salicylates Acetaminophen 12/25/19 12/25/19 12/26/19 17:48 18:50 00:43 WBC RBC Hgb Hct MCV MCH MCHC RDW Plt Count Lymph % (Auto) [place] % (Auto) Eos % (Auto) Baso % (Auto) Lymph # [place] # Eos # Baso # Seg Neutrophils % Monocytes % (Manual) Monocytes # (Manual) D-Dimer ABG pH ABG pO2 ABG HCO3 ABG O2 Saturation ABG Base Excess ABG Hemoglobin Oxyhemoglobin Sodium 166 H* 164 H* Potassium Chloride 127.3 H Carbon Dioxide BUN Creatinine Glucose 220 H POC Glucose 252 H Lactic Acid Calcium Magnesium AST ALT Lactate Dehydrogenase Total Creatine Kinase C-Reactive Protein Total Protein Albumin Free T4 Urine WBC (Auto) Urine Total Protein Digoxin Salicylates Acetaminophen 12/26/19 12/26/19 12/26/19 05:31 08:07 08:07 WBC 4.3 L RBC Hgb 9.6 L Hct 32.1 L MCV MCH 26 L MCHC 30 L RDW 20.5 H Plt Count Lymph % (Auto) [place] % (Auto) Eos % (Auto) Baso % (Auto) Lymph # [place] # Eos # Baso # Seg Neutrophils % Monocytes % (Manual) Monocytes # (Manual) D-Dimer ABG pH ABG pO2 ABG HCO3 ABG O2 Saturation ABG Base Excess ABG Hemoglobin Oxyhemoglobin Sodium 162 H* Potassium Chloride 122.1 H Carbon Dioxide BUN Creatinine Glucose 247 H POC Glucose 187 H Lactic Acid Calcium Magnesium AST ALT Lactate Dehydrogenase Total Creatine Kinase C-Reactive Protein Total Protein Albumin Free T4 Urine WBC (Auto) Urine Total Protein Digoxin Salicylates Acetaminophen 12/26/19 12/26/19 12/26/19 08:07 12:20 16:25 WBC RBC Hgb Hct MCV MCH MCHC RDW Plt Count Lymph % (Auto) [place] % (Auto) Eos % (Auto) Baso % (Auto) Lymph # [place] # Eos # Baso # Seg Neutrophils % Monocytes % (Manual) Monocytes # (Manual) D-Dimer ABG pH 7.290 L ABG pO2 73.2 L ABG HCO3 33.2 H ABG O2 Saturation 94.9 L ABG Base Excess 5.2 H ABG Hemoglobin 10.0 L Oxyhemoglobin 92.5 L Sodium 159 H Potassium Chloride Carbon Dioxide BUN Creatinine Glucose POC Glucose 234 H Lactic Acid Calcium Magnesium AST ALT Lactate Dehydrogenase Total Creatine Kinase C-Reactive Protein Total Protein Albumin Free T4 Urine WBC (Auto) Urine Total Protein Digoxin Salicylates Acetaminophen 12/26/19 12/26/19 12/26/19 17:33 22:35 23:30 WBC RBC Hgb Hct MCV MCH MCHC RDW Plt Count Lymph % (Auto) [place] % (Auto) Eos % (Auto) Baso % (Auto) Lymph # [place] # Eos # Baso # Seg Neutrophils % Monocytes % (Manual) Monocytes # (Manual) D-Dimer ABG pH ABG pO2 ABG HCO3 ABG O2 Saturation ABG Base Excess ABG Hemoglobin Oxyhemoglobin Sodium Potassium Chloride Carbon Dioxide BUN Creatinine Glucose POC Glucose 244 H 208 H 287 H Lactic Acid Calcium Magnesium AST ALT Lactate Dehydrogenase Total Creatine Kinase C-Reactive Protein Total Protein Albumin Free T4 Urine WBC (Auto) Urine Total Protein Digoxin Salicylates Acetaminophen 12/27/19 12/27/19 12/27/19 03:48 03:48 03:48 WBC RBC Hgb 10.1 L Hct 35.4 L MCV MCH 25 L MCHC 29 L RDW 20.1 H Plt Count Lymph % (Auto) [place] % (Auto) Eos % (Auto) Baso % (Auto) Lymph # [place] # Eos # Baso # Seg Neutrophils % Monocytes % (Manual) Monocytes # (Manual) D-Dimer ABG pH ABG pO2 ABG HCO3 ABG O2 Saturation ABG Base Excess ABG Hemoglobin Oxyhemoglobin Sodium 160 H Potassium Chloride 118.8 H Carbon Dioxide 33 H BUN Creatinine Glucose 217 H POC Glucose Lactic Acid Calcium Magnesium 2.70 H AST ALT Lactate Dehydrogenase Total Creatine Kinase C-Reactive Protein Total Protein Albumin Free T4 Urine WBC (Auto) Urine Total Protein Digoxin Salicylates Acetaminophen 12/27/19 12/27/19 12/27/19 05:50 11:58 16:05 WBC RBC Hgb Hct MCV MCH MCHC RDW Plt Count Lymph % (Auto) [place] % (Auto) Eos % (Auto) Baso % (Auto) Lymph # [place] # Eos # Baso # Seg Neutrophils % Monocytes % (Manual) Monocytes # (Manual) D-Dimer ABG pH 7.180 L* ABG pO2 73.6 L ABG HCO3 34.8 H ABG O2 Saturation 92.7 L ABG Base Excess 3.8 H ABG Hemoglobin 12.0 L Oxyhemoglobin 90.2 L Sodium Potassium Chloride Carbon Dioxide BUN Creatinine Glucose POC Glucose 224 H 218 H Lactic Acid Calcium Magnesium AST ALT Lactate Dehydrogenase Total Creatine Kinase C-Reactive Protein Total Protein Albumin Free T4 Urine WBC (Auto) Urine Total Protein Digoxin Salicylates Acetaminophen 12/27/19 12/27/19 12/27/19 18:05 19:50 21:53 WBC RBC Hgb Hct MCV MCH MCHC RDW Plt Count Lymph % (Auto) [place] % (Auto) Eos % (Auto) Baso % (Auto) Lymph # [place] # Eos # Baso # Seg Neutrophils % Monocytes % (Manual) Monocytes # (Manual) D-Dimer ABG pH 7.328 L ABG pO2 49.9 L ABG HCO3 33.3 H ABG O2 Saturation 87.1 L ABG Base Excess 5.7 H ABG Hemoglobin 11.2 L Oxyhemoglobin 84.8 L Sodium Potassium Chloride Carbon Dioxide BUN Creatinine Glucose POC Glucose 214 H 178 H Lactic Acid Calcium Magnesium AST ALT Lactate Dehydrogenase Total Creatine Kinase C-Reactive Protein Total Protein Albumin Free T4 Urine WBC (Auto) Urine Total Protein Digoxin Salicylates Acetaminophen 12/28/19 12/28/19 12/28/19 00:42 04:37 04:37 WBC RBC Hgb 9.8 L Hct 33.5 L MCV MCH 25 L MCHC 29 L RDW 21.1 H Plt Count Lymph % (Auto) [place] % (Auto) Eos % (Auto) Baso % (Auto) Lymph # [place] # Eos # Baso # Seg Neutrophils % Monocytes % (Manual) Monocytes # (Manual) D-Dimer ABG pH ABG pO2 ABG HCO3 ABG O2 Saturation ABG Base Excess ABG Hemoglobin Oxyhemoglobin Sodium 157 H Potassium 3.4 L Chloride 117.5 H Carbon Dioxide BUN Creatinine Glucose 193 H POC Glucose 157 H Lactic Acid Calcium Magnesium AST ALT Lactate Dehydrogenase Total Creatine Kinase C-Reactive Protein Total Protein Albumin Free T4 Urine WBC (Auto) Urine Total Protein Digoxin Salicylates Acetaminophen 12/28/19 12/28/19 12/28/19 04:52 05:19 12:05 WBC RBC Hgb Hct MCV MCH MCHC RDW Plt Count Lymph % (Auto) [place] % (Auto) Eos % (Auto) Baso % (Auto) Lymph # [place] # Eos # Baso # Seg Neutrophils % Monocytes % (Manual) Monocytes # (Manual) D-Dimer ABG pH ABG pO2 51.7 L ABG HCO3 28.7 H ABG O2 Saturation 89.9 L ABG Base Excess 4.1 H ABG Hemoglobin 9.7 L Oxyhemoglobin 87.7 L Sodium Potassium Chloride Carbon Dioxide BUN Creatinine Glucose POC Glucose 202 H 248 H Lactic Acid Calcium Magnesium AST ALT Lactate Dehydrogenase Total Creatine Kinase C-Reactive Protein Total Protein Albumin Free T4 Urine WBC (Auto) Urine Total Protein Digoxin Salicylates Acetaminophen 12/28/19 12/28/19 12/28/19 18:11 21:15 23:22 WBC RBC Hgb Hct MCV MCH MCHC RDW Plt Count Lymph % (Auto) [place] % (Auto) Eos % (Auto) Baso % (Auto) Lymph # [place] # Eos # Baso # Seg Neutrophils % Monocytes % (Manual) Monocytes # (Manual) D-Dimer ABG pH ABG pO2 ABG HCO3 ABG O2 Saturation ABG Base Excess ABG Hemoglobin Oxyhemoglobin Sodium Potassium Chloride Carbon Dioxide BUN Creatinine Glucose POC Glucose 226 H 217 H 227 H Lactic Acid Calcium Magnesium AST ALT Lactate Dehydrogenase Total Creatine Kinase C-Reactive Protein Total Protein Albumin Free T4 Urine WBC (Auto) Urine Total Protein Digoxin Salicylates Acetaminophen 12/29/19 12/29/19 12/29/19 04:09 04:59 04:59 WBC 11.1 H RBC Hgb 9.3 L Hct 31.1 L MCV 81 L MCH 24 L MCHC 30 L RDW 19.9 H Plt Count Lymph % (Auto) [place] % (Auto) Eos % (Auto) Baso % (Auto) Lymph # [place] # Eos # Baso # Seg Neutrophils % Monocytes % (Manual) Monocytes # (Manual) D-Dimer ABG pH 7.473 H ABG pO2 126.1 H ABG HCO3 29.2 H ABG O2 Saturation ABG Base Excess 5.1 H ABG Hemoglobin 8.4 L Oxyhemoglobin Sodium 157 H Potassium 3.2 L Chloride 118.2 H Carbon Dioxide BUN Creatinine 1.7 H Glucose 229 H POC Glucose Lactic Acid Calcium Magnesium AST ALT Lactate Dehydrogenase Total Creatine Kinase C-Reactive Protein Total Protein Albumin Free T4 Urine WBC (Auto) Urine Total Protein Digoxin Salicylates Acetaminophen 12/29/19 12/29/19 12/29/19 05:15 12:13 17:59 WBC RBC Hgb Hct MCV MCH MCHC RDW Plt Count Lymph % (Auto) [place] % (Auto) Eos % (Auto) Baso % (Auto) Lymph # [place] # Eos # Baso # Seg Neutrophils % Monocytes % (Manual) Monocytes # (Manual) D-Dimer ABG pH ABG pO2 ABG HCO3 ABG O2 Saturation ABG Base Excess ABG Hemoglobin Oxyhemoglobin Sodium Potassium Chloride Carbon Dioxide BUN Creatinine Glucose POC Glucose 221 H 392 H 365 H Lactic Acid Calcium Magnesium AST ALT Lactate Dehydrogenase Total Creatine Kinase C-Reactive Protein Total Protein Albumin Free T4 Urine WBC (Auto) Urine Total Protein Digoxin Salicylates Acetaminophen 12/29/19 12/29/19 12/30/19 20:25 23:38 04:45 WBC RBC Hgb Hct MCV MCH MCHC RDW Plt Count Lymph % (Auto) [place] % (Auto) Eos % (Auto) Baso % (Auto) Lymph # [place] # Eos # Baso # Seg Neutrophils % Monocytes % (Manual) Monocytes # (Manual) D-Dimer ABG pH 7.261 L 7.343 L ABG pO2 60.3 L 54.3 L ABG HCO3 32.1 H 30.9 H ABG O2 Saturation 87.6 L 88.3 L ABG Base Excess 3.7 H 4.0 H ABG Hemoglobin 9.7 L 11.6 L Oxyhemoglobin 85.2 L 86.0 L Sodium Potassium Chloride Carbon Dioxide BUN Creatinine Glucose POC Glucose 402 H Lactic Acid Calcium Magnesium AST ALT Lactate Dehydrogenase Total Creatine Kinase C-Reactive Protein Total Protein Albumin Free T4 Urine WBC (Auto) Urine Total Protein Digoxin Salicylates Acetaminophen 12/30/19 12/30/19 12/30/19 05:06 05:06 05:06 WBC 11.7 H RBC Hgb 9.4 L Hct 32.4 L MCV 83 L MCH 24 L MCHC 29 L RDW 20.2 H Plt Count Lymph % (Auto) [place] % (Auto) Eos % (Auto) Baso % (Auto) Lymph # [place] # Eos # Baso # Seg Neutrophils % Monocytes % (Manual) Monocytes # (Manual) D-Dimer ABG pH ABG pO2 ABG HCO3 ABG O2 Saturation ABG Base Excess ABG Hemoglobin Oxyhemoglobin Sodium 159 H Potassium 3.2 L Chloride 120.1 H Carbon Dioxide 31 H BUN Creatinine 1.9 H Glucose 404 H POC Glucose Lactic Acid Calcium Magnesium 2.60 H AST ALT Lactate Dehydrogenase Total Creatine Kinase C-Reactive Protein Total Protein Albumin Free T4 Urine WBC (Auto) Urine Total Protein Digoxin Salicylates Acetaminophen 12/30/19 12/30/19 12/30/19 06:26 12:29 13:44 WBC RBC Hgb Hct MCV MCH MCHC RDW Plt Count Lymph % (Auto) [place] % (Auto) Eos % (Auto) Baso % (Auto) Lymph # [place] # Eos # Baso # Seg Neutrophils % Monocytes % (Manual) Monocytes # (Manual) D-Dimer ABG pH ABG pO2 ABG HCO3 ABG O2 Saturation ABG Base Excess ABG Hemoglobin Oxyhemoglobin Sodium Potassium Chloride Carbon Dioxide BUN Creatinine Glucose POC Glucose 399 H 469 H > 500 H Lactic Acid Calcium Magnesium AST ALT Lactate Dehydrogenase Total Creatine Kinase C-Reactive Protein Total Protein Albumin Free T4 Urine WBC (Auto) Urine Total Protein Digoxin Salicylates Acetaminophen 12/30/19 12/30/19 12/30/19 13:51 16:32 18:05 WBC RBC Hgb Hct MCV MCH MCHC RDW Plt Count Lymph % (Auto) [place] % (Auto) Eos % (Auto) Baso % (Auto) Lymph # [place] # Eos # Baso # Seg Neutrophils % Monocytes % (Manual) Monocytes # (Manual) D-Dimer ABG pH ABG pO2 ABG HCO3 ABG O2 Saturation ABG Base Excess ABG Hemoglobin Oxyhemoglobin Sodium Potassium Chloride Carbon Dioxide BUN Creatinine Glucose POC Glucose > 500 H 445 H 429 H Lactic Acid Calcium Magnesium AST ALT Lactate Dehydrogenase Total Creatine Kinase C-Reactive Protein Total Protein Albumin Free T4 Urine WBC (Auto) Urine Total Protein Digoxin Salicylates Acetaminophen 12/30/19 12/30/19 12/31/19 21:42 Unknown 00:00 WBC RBC Hgb Hct MCV MCH MCHC RDW Plt Count Lymph % (Auto) [place] % (Auto) Eos % (Auto) Baso % (Auto) Lymph # [place] # Eos # Baso # Seg Neutrophils % Monocytes % (Manual) Monocytes # (Manual) D-Dimer ABG pH ABG pO2 ABG HCO3 ABG O2 Saturation ABG Base Excess ABG Hemoglobin Oxyhemoglobin Sodium Potassium Chloride Carbon Dioxide BUN Creatinine Glucose 498 H POC Glucose 371 H 452 H Lactic Acid Calcium Magnesium AST ALT Lactate Dehydrogenase Total Creatine Kinase C-Reactive Protein Total Protein Albumin Free T4 Urine WBC (Auto) Urine Total Protein Digoxin Salicylates Acetaminophen 12/31/19 12/31/19 12/31/19 04:31 05:42 08:01 WBC RBC Hgb Hct MCV MCH MCHC RDW Plt Count Lymph % (Auto) [place] % (Auto) Eos % (Auto) Baso % (Auto) Lymph # [place] # Eos # Baso # Seg Neutrophils % Monocytes % (Manual) Monocytes # (Manual) D-Dimer ABG pH 7.251 L ABG pO2 62.4 L ABG HCO3 31.1 H ABG O2 Saturation 88.7 L ABG Base Excess ABG Hemoglobin 8.7 L Oxyhemoglobin 86.4 L Sodium Potassium Chloride Carbon Dioxide BUN Creatinine Glucose POC Glucose 443 H 443 H Lactic Acid Calcium Magnesium AST ALT Lactate Dehydrogenase Total Creatine Kinase C-Reactive Protein Total Protein Albumin Free T4 Urine WBC (Auto) Urine Total Protein Digoxin Salicylates Acetaminophen 12/31/19 12/31/19 12/31/19 09:08 10:00 11:50 WBC RBC Hgb Hct MCV MCH MCHC RDW Plt Count Lymph % (Auto) [place] % (Auto) Eos % (Auto) Baso % (Auto) Lymph # [place] # Eos # Baso # Seg Neutrophils % Monocytes % (Manual) Monocytes # (Manual) D-Dimer ABG pH 7.325 L ABG pO2 97.2 H ABG HCO3 30.1 H ABG O2 Saturation ABG Base Excess 3.4 H ABG Hemoglobin 8.3 L Oxyhemoglobin 94.7 L Sodium 151 H D Potassium 3.2 L Chloride 113.0 H Carbon Dioxide BUN 23 H Creatinine 1.8 H Glucose 373 H POC Glucose 465 H Lactic Acid Calcium Magnesium AST ALT Lactate Dehydrogenase Total Creatine Kinase C-Reactive Protein Total Protein Albumin Free T4 Urine WBC (Auto) Urine Total Protein Digoxin Salicylates Acetaminophen 12/31/19 12/31/19 12/31/19 12:25 13:33 18:30 WBC RBC Hgb Hct MCV MCH MCHC RDW Plt Count Lymph % (Auto) [place] % (Auto) Eos % (Auto) Baso % (Auto) Lymph # [place] # Eos # Baso # Seg Neutrophils % Monocytes % (Manual) Monocytes # (Manual) D-Dimer ABG pH ABG pO2 ABG HCO3 ABG O2 Saturation ABG Base Excess ABG Hemoglobin Oxyhemoglobin Sodium Potassium Chloride Carbon Dioxide BUN Creatinine Glucose POC Glucose 379 H 311 H 349 H Lactic Acid Calcium Magnesium AST ALT Lactate Dehydrogenase Total Creatine Kinase C-Reactive Protein Total Protein Albumin Free T4 Urine WBC (Auto) Urine Total Protein Digoxin Salicylates Acetaminophen 12/31/19 12/31/19 01/01/20 22:29 23:30 02:58 WBC RBC Hgb Hct MCV MCH MCHC RDW Plt Count Lymph % (Auto) [place] % (Auto) Eos % (Auto) Baso % (Auto) Lymph # [place] # Eos # Baso # Seg Neutrophils % Monocytes % (Manual) Monocytes # (Manual) D-Dimer ABG pH ABG pO2 ABG HCO3 ABG O2 Saturation ABG Base Excess ABG Hemoglobin Oxyhemoglobin Sodium Potassium Chloride Carbon Dioxide BUN Creatinine Glucose POC Glucose 256 H 266 H 248 H Lactic Acid Calcium Magnesium AST ALT Lactate Dehydrogenase Total Creatine Kinase C-Reactive Protein Total Protein Albumin Free T4 Urine WBC (Auto) Urine Total Protein Digoxin Salicylates Acetaminophen 01/01/20 01/01/20 01/01/20 04:19 06:56 10:52 WBC RBC Hgb Hct MCV MCH MCHC RDW Plt Count Lymph % (Auto) [place] % (Auto) Eos % (Auto) Baso % (Auto) Lymph # [place] # Eos # Baso # Seg Neutrophils % Monocytes % (Manual) Monocytes # (Manual) D-Dimer ABG pH ABG pO2 90.7 H ABG HCO3 29.1 H ABG O2 Saturation ABG Base Excess 3.8 H ABG Hemoglobin 8.1 L Oxyhemoglobin 94.5 L Sodium Potassium Chloride Carbon Dioxide BUN Creatinine Glucose POC Glucose 303 H 244 H Lactic Acid Calcium Magnesium AST ALT Lactate Dehydrogenase Total Creatine Kinase C-Reactive Protein Total Protein Albumin Free T4 Urine WBC (Auto) Urine Total Protein Digoxin Salicylates Acetaminophen 01/01/20 01/01/20 01/01/20 13:39 14:49 18:42 WBC RBC Hgb Hct MCV MCH MCHC RDW Plt Count Lymph % (Auto) [place] % (Auto) Eos % (Auto) Baso % (Auto) Lymph # [place] # Eos # Baso # Seg Neutrophils % Monocytes % (Manual) Monocytes # (Manual) D-Dimer ABG pH ABG pO2 ABG HCO3 ABG O2 Saturation ABG Base Excess ABG Hemoglobin Oxyhemoglobin Sodium 147 H Potassium Chloride 107.1 H Carbon Dioxide BUN 28 H Creatinine Glucose 207 H POC Glucose 263 H 188 H Lactic Acid Calcium Magnesium AST ALT Lactate Dehydrogenase Total Creatine Kinase C-Reactive Protein Total Protein Albumin Free T4 Urine WBC (Auto) Urine Total Protein Digoxin Salicylates Acetaminophen 01/02/20 01/02/20 01/02/20 02:22 03:58 05:00 WBC RBC 3.31 L Hgb 8.0 L Hct 26.9 L MCV 81 L MCH 24 L MCHC 30 L RDW 19.4 H Plt Count Lymph % (Auto) [place] % (Auto) 9.4 H Eos % (Auto) 11.2 H Baso % (Auto) Lymph # [place] # Eos # 0.8 H Baso # Seg Neutrophils % Monocytes % (Manual) Monocytes # (Manual) D-Dimer ABG pH ABG pO2 63.0 L ABG HCO3 31.6 H ABG O2 Saturation 91.8 L ABG Base Excess 5.5 H ABG Hemoglobin 8.6 L Oxyhemoglobin 89.6 L Sodium Potassium Chloride Carbon Dioxide BUN Creatinine Glucose POC Glucose 196 H Lactic Acid Calcium Magnesium AST ALT Lactate Dehydrogenase Total Creatine Kinase C-Reactive Protein Total Protein Albumin Free T4 Urine WBC (Auto) Urine Total Protein Digoxin Salicylates Acetaminophen 01/02/20 01/02/20 01/02/20 05:40 10:26 13:57 WBC RBC Hgb Hct MCV MCH MCHC RDW Plt Count Lymph % (Auto) [place] % (Auto) Eos % (Auto) Baso % (Auto) Lymph # [place] # Eos # Baso # Seg Neutrophils % Monocytes % (Manual) Monocytes # (Manual) D-Dimer ABG pH ABG pO2 ABG HCO3 ABG O2 Saturation ABG Base Excess ABG Hemoglobin Oxyhemoglobin Sodium Potassium Chloride Carbon Dioxide BUN Creatinine Glucose POC Glucose 189 H 157 H 178 H Lactic Acid Calcium Magnesium AST ALT Lactate Dehydrogenase Total Creatine Kinase C-Reactive Protein Total Protein Albumin Free T4 Urine WBC (Auto) Urine Total Protein Digoxin Salicylates Acetaminophen 01/02/20 01/03/20 01/03/20 21:27 03:12 05:26 WBC RBC Hgb Hct MCV MCH MCHC RDW Plt Count Lymph % (Auto) [place] % (Auto) Eos % (Auto) Baso % (Auto) Lymph # [place] # Eos # Baso # Seg Neutrophils % Monocytes % (Manual) Monocytes # (Manual) D-Dimer ABG pH 7.473 H ABG pO2 109.6 H ABG HCO3 30.4 H ABG O2 Saturation ABG Base Excess 6.2 H ABG Hemoglobin 9.9 L Oxyhemoglobin Sodium Potassium Chloride Carbon Dioxide BUN Creatinine Glucose POC Glucose 131 H 133 H Lactic Acid Calcium Magnesium AST ALT Lactate Dehydrogenase Total Creatine Kinase C-Reactive Protein Total Protein Albumin Free T4 Urine WBC (Auto) Urine Total Protein Digoxin Salicylates Acetaminophen 01/03/20 01/03/20 01/03/20 05:40 05:40 15:01 WBC RBC 3.45 L Hgb 8.3 L Hct 27.3 L MCV 79 L MCH 24 L MCHC 30 L RDW 19.3 H Plt Count Lymph % (Auto) [place] % (Auto) Eos % (Auto) Baso % (Auto) Lymph # [place] # Eos # Baso # Seg Neutrophils % Monocytes % (Manual) Monocytes # (Manual) D-Dimer ABG pH ABG pO2 ABG HCO3 ABG O2 Saturation ABG Base Excess ABG Hemoglobin Oxyhemoglobin Sodium 151 H Potassium Chloride 111.8 H Carbon Dioxide 31 H BUN 37 H Creatinine 1.8 H Glucose 187 H POC Glucose 164 H Lactic Acid Calcium Magnesium AST ALT Lactate Dehydrogenase Total Creatine Kinase C-Reactive Protein Total Protein Albumin Free T4 Urine WBC (Auto) Urine Total Protein Digoxin Salicylates Acetaminophen 01/03/20 01/03/20 01/04/20 18:15 22:45 02:11 WBC RBC Hgb Hct MCV MCH MCHC RDW Plt Count Lymph % (Auto) [place] % (Auto) Eos % (Auto) Baso % (Auto) Lymph # [place] # Eos # Baso # Seg Neutrophils % Monocytes % (Manual) Monocytes # (Manual) D-Dimer ABG pH ABG pO2 ABG HCO3 ABG O2 Saturation ABG Base Excess ABG Hemoglobin Oxyhemoglobin Sodium Potassium Chloride Carbon Dioxide BUN Creatinine Glucose POC Glucose 184 H 176 H 206 H Lactic Acid Calcium Magnesium AST ALT Lactate Dehydrogenase Total Creatine Kinase C-Reactive Protein Total Protein Albumin Free T4 Urine WBC (Auto) Urine Total Protein Digoxin Salicylates Acetaminophen 01/04/20 01/04/20 01/04/20 03:16 05:15 10:53 WBC RBC Hgb Hct MCV MCH MCHC RDW Plt Count Lymph % (Auto) [place] % (Auto) Eos % (Auto) Baso % (Auto) Lymph # [place] # Eos # Baso # Seg Neutrophils % Monocytes % (Manual) Monocytes # (Manual) D-Dimer ABG pH 7.282 L ABG pO2 73.2 L ABG HCO3 ABG O2 Saturation 94.5 L ABG Base Excess -6.4 L ABG Hemoglobin 10.9 L Oxyhemoglobin 92.1 L Sodium Potassium Chloride Carbon Dioxide BUN Creatinine Glucose POC Glucose 139 H 224 H Lactic Acid Calcium Magnesium AST ALT Lactate Dehydrogenase Total Creatine Kinase C-Reactive Protein Total Protein Albumin Free T4 Urine WBC (Auto) Urine Total Protein Digoxin Salicylates Acetaminophen 01/04/20 01/04/20 01/04/20 15:47 18:05 22:07 WBC RBC Hgb Hct MCV MCH MCHC RDW Plt Count Lymph % (Auto) [place] % (Auto) Eos % (Auto) Baso % (Auto) Lymph # [place] # Eos # Baso # Seg Neutrophils % Monocytes % (Manual) Monocytes # (Manual) D-Dimer ABG pH ABG pO2 ABG HCO3 ABG O2 Saturation ABG Base Excess ABG Hemoglobin Oxyhemoglobin Sodium Potassium Chloride Carbon Dioxide BUN Creatinine Glucose POC Glucose 135 H 117 H 108 H Lactic Acid Calcium Magnesium AST ALT Lactate Dehydrogenase Total Creatine Kinase C-Reactive Protein Total Protein Albumin Free T4 Urine WBC (Auto) Urine Total Protein Digoxin Salicylates Acetaminophen 01/04/20 01/04/20 01/05/20 Unknown Unknown 02:04 WBC RBC 3.46 L Hgb 8.2 L Hct 27.8 L MCV 80 L MCH 24 L MCHC 30 L RDW 19.7 H Plt Count Lymph % (Auto) [place] % (Auto) Eos % (Auto) Baso % (Auto) Lymph # [place] # Eos # Baso # Seg Neutrophils % Monocytes % (Manual) Monocytes # (Manual) D-Dimer ABG pH ABG pO2 ABG HCO3 ABG O2 Saturation ABG Base Excess ABG Hemoglobin Oxyhemoglobin Sodium 150 H Potassium Chloride 110 H Carbon Dioxide 32 H BUN 32 H Creatinine Glucose 309 H POC Glucose 140 H Lactic Acid Calcium Magnesium AST ALT Lactate Dehydrogenase Total Creatine Kinase C-Reactive Protein Total Protein Albumin Free T4 Urine WBC (Auto) Urine Total Protein Digoxin Salicylates Acetaminophen 01/05/20 01/05/20 01/05/20 03:31 03:36 03:36 WBC RBC 3.46 L Hgb 8.4 L Hct 26.9 L MCV 78 L MCH 24 L MCHC 31 L RDW 19.0 H Plt Count Lymph % (Auto) [place] % (Auto) Eos % (Auto) Baso % (Auto) Lymph # [place] # Eos # Baso # Seg Neutrophils % Monocytes % (Manual) Monocytes # (Manual) D-Dimer ABG pH 7.454 H ABG pO2 113.0 H ABG HCO3 30.5 H ABG O2 Saturation ABG Base Excess 6.0 H ABG Hemoglobin 8.5 L Oxyhemoglobin Sodium 150 H Potassium Chloride 110.3 H Carbon Dioxide BUN 30 H Creatinine Glucose 148 H POC Glucose Lactic Acid Calcium Magnesium AST ALT Lactate Dehydrogenase Total Creatine Kinase C-Reactive Protein Total Protein Albumin Free T4 Urine WBC (Auto) Urine Total Protein Digoxin Salicylates Acetaminophen 01/05/20 01/05/20 01/05/20 05:21 09:56 11:45 WBC RBC Hgb Hct MCV MCH MCHC RDW Plt Count Lymph % (Auto) [place] % (Auto) Eos % (Auto) Baso % (Auto) Lymph # [place] # Eos # Baso # Seg Neutrophils % Monocytes % (Manual) Monocytes # (Manual) D-Dimer ABG pH ABG pO2 ABG HCO3 ABG O2 Saturation ABG Base Excess ABG Hemoglobin Oxyhemoglobin Sodium Potassium Chloride Carbon Dioxide BUN Creatinine Glucose POC Glucose 142 H 129 H 174 H Lactic Acid Calcium Magnesium AST ALT Lactate Dehydrogenase Total Creatine Kinase C-Reactive Protein Total Protein Albumin Free T4 Urine WBC (Auto) Urine Total Protein Digoxin Salicylates Acetaminophen 01/05/20 01/05/20 01/05/20 13:30 14:00 17:41 WBC RBC Hgb Hct MCV MCH MCHC RDW Plt Count Lymph % (Auto) [place] % (Auto) Eos % (Auto) Baso % (Auto) Lymph # [place] # Eos # Baso # Seg Neutrophils % Monocytes % (Manual) Monocytes # (Manual) D-Dimer ABG pH ABG pO2 ABG HCO3 ABG O2 Saturation ABG Base Excess ABG Hemoglobin Oxyhemoglobin Sodium Potassium Chloride Carbon Dioxide BUN 26 H Creatinine 1.6 H Glucose 302 H POC Glucose 168 H 136 H Lactic Acid Calcium Magnesium AST ALT Lactate Dehydrogenase Total Creatine Kinase C-Reactive Protein Total Protein Albumin Free T4 Urine WBC (Auto) Urine Total Protein Digoxin Salicylates Acetaminophen 01/05/20 01/05/20 01/06/20 20:38 23:32 03:50 WBC RBC Hgb Hct MCV MCH MCHC RDW Plt Count Lymph % (Auto) [place] % (Auto) Eos % (Auto) Baso % (Auto) Lymph # [place] # Eos # Baso # Seg Neutrophils % Monocytes % (Manual) Monocytes # (Manual) D-Dimer ABG pH ABG pO2 76.2 L ABG HCO3 30.1 H ABG O2 Saturation ABG Base Excess 5.1 H ABG Hemoglobin 9.5 L Oxyhemoglobin 93.8 L Sodium Potassium Chloride Carbon Dioxide BUN Creatinine Glucose POC Glucose 124 H 163 H Lactic Acid Calcium Magnesium AST ALT Lactate Dehydrogenase Total Creatine Kinase C-Reactive Protein Total Protein Albumin Free T4 Urine WBC (Auto) Urine Total Protein Digoxin Salicylates Acetaminophen 01/06/20 01/06/20 01/06/20 04:09 04:58 04:58 WBC RBC Hgb 8.8 L Hct 28.7 L MCV 78 L MCH 24 L MCHC 31 L RDW 18.7 H Plt Count 522 H Lymph % (Auto) [place] % (Auto) Eos % (Auto) Baso % (Auto) Lymph # [place] # Eos # Baso # Seg Neutrophils % Monocytes % (Manual) Monocytes # (Manual) D-Dimer ABG pH ABG pO2 ABG HCO3 ABG O2 Saturation ABG Base Excess ABG Hemoglobin Oxyhemoglobin Sodium 150 H D Potassium Chloride 109.3 H Carbon Dioxide BUN 25 H Creatinine Glucose 55 L POC Glucose 65 L Lactic Acid Calcium Magnesium AST ALT Lactate Dehydrogenase Total Creatine Kinase C-Reactive Protein Total Protein Albumin Free T4 Urine WBC (Auto) Urine Total Protein Digoxin Salicylates Acetaminophen 01/06/20 01/06/20 01/06/20 05:01 14:10 17:49 WBC RBC Hgb Hct MCV MCH MCHC RDW Plt Count Lymph % (Auto) [place] % (Auto) Eos % (Auto) Baso % (Auto) Lymph # [place] # Eos # Baso # Seg Neutrophils % Monocytes % (Manual) Monocytes # (Manual) D-Dimer ABG pH ABG pO2 ABG HCO3 ABG O2 Saturation ABG Base Excess ABG Hemoglobin Oxyhemoglobin Sodium Potassium Chloride Carbon Dioxide BUN Creatinine Glucose POC Glucose 60 L 119 H 131 H Lactic Acid Calcium Magnesium AST ALT Lactate Dehydrogenase Total Creatine Kinase C-Reactive Protein Total Protein Albumin Free T4 Urine WBC (Auto) Urine Total Protein Digoxin Salicylates Acetaminophen 01/06/20 01/07/20 01/07/20 21:08 02:11 05:19 WBC RBC Hgb Hct MCV MCH MCHC RDW Plt Count Lymph % (Auto) [place] % (Auto) Eos % (Auto) Baso % (Auto) Lymph # [place] # Eos # Baso # Seg Neutrophils % Monocytes % (Manual) Monocytes # (Manual) D-Dimer ABG pH ABG pO2 ABG HCO3 ABG O2 Saturation ABG Base Excess ABG Hemoglobin Oxyhemoglobin Sodium Potassium Chloride Carbon Dioxide BUN Creatinine Glucose POC Glucose 136 H 209 H 182 H Lactic Acid Calcium Magnesium AST ALT Lactate Dehydrogenase Total Creatine Kinase C-Reactive Protein Total Protein Albumin Free T4 Urine WBC (Auto) Urine Total Protein Digoxin Salicylates Acetaminophen 01/07/20 01/07/20 01/07/20 11:40 11:52 13:49 WBC RBC Hgb Hct MCV MCH MCHC RDW Plt Count Lymph % (Auto) [place] % (Auto) Eos % (Auto) Baso % (Auto) Lymph # [place] # Eos # Baso # Seg Neutrophils % Monocytes % (Manual) Monocytes # (Manual) D-Dimer ABG pH ABG pO2 ABG HCO3 ABG O2 Saturation ABG Base Excess ABG Hemoglobin Oxyhemoglobin Sodium Potassium Chloride Carbon Dioxide BUN 21 H Creatinine Glucose 190 H POC Glucose 180 H 184 H Lactic Acid Calcium Magnesium AST ALT Lactate Dehydrogenase Total Creatine Kinase C-Reactive Protein Total Protein Albumin Free T4 Urine WBC (Auto) Urine Total Protein Digoxin Salicylates Acetaminophen 01/07/20 01/07/20 01/07/20 17:54 22:19 Unknown WBC RBC Hgb Hct MCV MCH MCHC RDW Plt Count Lymph % (Auto) [place] % (Auto) Eos % (Auto) Baso % (Auto) Lymph # [place] # Eos # Baso # Seg Neutrophils % Monocytes % (Manual) Monocytes # (Manual) D-Dimer ABG pH ABG pO2 ABG HCO3 28.9 H ABG O2 Saturation ABG Base Excess 4.0 H ABG Hemoglobin 11.0 L Oxyhemoglobin 94.2 L Sodium Potassium Chloride Carbon Dioxide BUN Creatinine Glucose POC Glucose 190 H 299 H Lactic Acid Calcium Magnesium AST ALT Lactate Dehydrogenase Total Creatine Kinase C-Reactive Protein Total Protein Albumin Free T4 Urine WBC (Auto) Urine Total Protein Digoxin Salicylates Acetaminophen 01/08/20 01/08/20 01/08/20 02:45 05:26 05:27 WBC RBC Hgb Hct MCV MCH MCHC RDW Plt Count Lymph % (Auto) [place] % (Auto) Eos % (Auto) Baso % (Auto) Lymph # [place] # Eos # Baso # Seg Neutrophils % Monocytes % (Manual) Monocytes # (Manual) D-Dimer ABG pH ABG pO2 67.8 L ABG HCO3 26.5 H ABG O2 Saturation 93.2 L ABG Base Excess ABG Hemoglobin 8.1 L Oxyhemoglobin 90.4 L Sodium Potassium Chloride Carbon Dioxide BUN Creatinine Glucose POC Glucose 245 H 346 H Lactic Acid Calcium Magnesium AST ALT Lactate Dehydrogenase Total Creatine Kinase C-Reactive Protein Total Protein Albumin Free T4 Urine WBC (Auto) Urine Total Protein Digoxin Salicylates Acetaminophen 01/08/20 01/08/20 01/08/20 08:03 08:03 10:33 WBC RBC 3.14 L Hgb 7.6 L Hct 24.3 L MCV 77 L MCH 24 L MCHC 31 L RDW 18.3 H Plt Count 509 H Lymph % (Auto) [place] % (Auto) Eos % (Auto) Baso % (Auto) Lymph # [place] # Eos # Baso # Seg Neutrophils % Monocytes % (Manual) Monocytes # (Manual) D-Dimer ABG pH ABG pO2 ABG HCO3 ABG O2 Saturation ABG Base Excess ABG Hemoglobin Oxyhemoglobin Sodium 132 L D Potassium Chloride 94.7 L Carbon Dioxide BUN 22 H Creatinine Glucose 284 H POC Glucose 275 H Lactic Acid Calcium Magnesium AST ALT Lactate Dehydrogenase Total Creatine Kinase C-Reactive Protein Total Protein Albumin Free T4 Urine WBC (Auto) Urine Total Protein Digoxin Salicylates Acetaminophen 01/08/20 01/08/20 01/08/20 13:34 17:24 21:49 WBC RBC Hgb Hct MCV MCH MCHC RDW Plt Count Lymph % (Auto) [place] % (Auto) Eos % (Auto) Baso % (Auto) Lymph # [place] # Eos # Baso # Seg Neutrophils % Monocytes % (Manual) Monocytes # (Manual) D-Dimer ABG pH ABG pO2 ABG HCO3 ABG O2 Saturation ABG Base Excess ABG Hemoglobin Oxyhemoglobin Sodium Potassium Chloride Carbon Dioxide BUN Creatinine Glucose POC Glucose 273 H 294 H 265 H Lactic Acid Calcium Magnesium AST ALT Lactate Dehydrogenase Total Creatine Kinase C-Reactive Protein Total Protein Albumin Free T4 Urine WBC (Auto) Urine Total Protein Digoxin Salicylates Acetaminophen 01/09/20 01/09/20 01/09/20 00:13 03:45 05:55 WBC RBC Hgb Hct MCV MCH MCHC RDW Plt Count Lymph % (Auto) [place] % (Auto) Eos % (Auto) Baso % (Auto) Lymph # [place] # Eos # Baso # Seg Neutrophils % Monocytes % (Manual) Monocytes # (Manual) D-Dimer ABG pH ABG pO2 ABG HCO3 ABG O2 Saturation ABG Base Excess ABG Hemoglobin Oxyhemoglobin Sodium Potassium Chloride Carbon Dioxide BUN Creatinine Glucose POC Glucose 251 H 346 H 300 H Lactic Acid Calcium Magnesium AST ALT Lactate Dehydrogenase Total Creatine Kinase C-Reactive Protein Total Protein Albumin Free T4 Urine WBC (Auto) Urine Total Protein Digoxin Salicylates Acetaminophen 01/09/20 01/09/20 01/09/20 08:15 09:31 12:04 WBC RBC Hgb Hct MCV MCH MCHC RDW Plt Count Lymph % (Auto) [place] % (Auto) Eos % (Auto) Baso % (Auto) Lymph # [place] # Eos # Baso # Seg Neutrophils % Monocytes % (Manual) Monocytes # (Manual) D-Dimer ABG pH ABG pO2 ABG HCO3 ABG O2 Saturation ABG Base Excess ABG Hemoglobin Oxyhemoglobin Sodium 134 L Potassium Chloride 97.6 L Carbon Dioxide BUN 25 H Creatinine Glucose 240 H POC Glucose 191 H 230 H Lactic Acid Calcium Magnesium AST ALT Lactate Dehydrogenase Total Creatine Kinase C-Reactive Protein Total Protein Albumin Free T4 Urine WBC (Auto) Urine Total Protein Digoxin Salicylates Acetaminophen 01/09/20 01/09/20 01/09/20 13:46 17:31 22:28 WBC RBC Hgb Hct MCV MCH MCHC RDW Plt Count Lymph % (Auto) [place] % (Auto) Eos % (Auto) Baso % (Auto) Lymph # [place] # Eos # Baso # Seg Neutrophils % Monocytes % (Manual) Monocytes # (Manual) D-Dimer ABG pH ABG pO2 ABG HCO3 ABG O2 Saturation ABG Base Excess ABG Hemoglobin Oxyhemoglobin Sodium Potassium Chloride Carbon Dioxide BUN Creatinine Glucose POC Glucose 211 H 260 H 223 H Lactic Acid Calcium Magnesium AST ALT Lactate Dehydrogenase Total Creatine Kinase C-Reactive Protein Total Protein Albumin Free T4 Urine WBC (Auto) Urine Total Protein Digoxin Salicylates Acetaminophen 01/10/20 01/10/20 01/10/20 02:16 04:20 05:55 WBC RBC Hgb Hct MCV MCH MCHC RDW Plt Count Lymph % (Auto) [place] % (Auto) Eos % (Auto) Baso % (Auto) Lymph # [place] # Eos # Baso # Seg Neutrophils % Monocytes % (Manual) Monocytes # (Manual) D-Dimer ABG pH ABG pO2 95.3 H ABG HCO3 27.8 H ABG O2 Saturation ABG Base Excess ABG Hemoglobin 8.3 L Oxyhemoglobin Sodium Potassium Chloride Carbon Dioxide BUN Creatinine Glucose POC Glucose 219 H 245 H Lactic Acid Calcium Magnesium AST ALT Lactate Dehydrogenase Total Creatine Kinase C-Reactive Protein Total Protein Albumin Free T4 Urine WBC (Auto) Urine Total Protein Digoxin Salicylates Acetaminophen 01/10/20 01/10/20 01/10/20 10:38 15:08 15:45 WBC RBC Hgb Hct MCV MCH MCHC RDW Plt Count Lymph % (Auto) [place] % (Auto) Eos % (Auto) Baso % (Auto) Lymph # [place] # Eos # Baso # Seg Neutrophils % Monocytes % (Manual) Monocytes # (Manual) D-Dimer ABG pH ABG pO2 ABG HCO3 ABG O2 Saturation ABG Base Excess ABG Hemoglobin Oxyhemoglobin Sodium Potassium Chloride Carbon Dioxide BUN Creatinine Glucose POC Glucose 268 H 246 H 238 H Lactic Acid Calcium Magnesium AST ALT Lactate Dehydrogenase Total Creatine Kinase C-Reactive Protein Total Protein Albumin Free T4 Urine WBC (Auto) Urine Total Protein Digoxin Salicylates Acetaminophen 01/10/20 01/10/20 01/10/20 18:00 21:09 22:48 WBC RBC Hgb Hct MCV MCH MCHC RDW Plt Count Lymph % (Auto) [place] % (Auto) Eos % (Auto) Baso % (Auto) Lymph # [place] # Eos # Baso # Seg Neutrophils % Monocytes % (Manual) Monocytes # (Manual) D-Dimer ABG pH ABG pO2 ABG HCO3 ABG O2 Saturation ABG Base Excess ABG Hemoglobin Oxyhemoglobin Sodium Potassium Chloride Carbon Dioxide BUN Creatinine Glucose POC Glucose 187 H 176 H 189 H Lactic Acid Calcium Magnesium AST ALT Lactate Dehydrogenase Total Creatine Kinase C-Reactive Protein Total Protein Albumin Free T4 Urine WBC (Auto) Urine Total Protein Digoxin Salicylates Acetaminophen 01/11/20 01/11/20 01/11/20 03:07 05:45 05:45 WBC RBC 3.15 L Hgb 7.7 L Hct 24.9 L MCV 79 L MCH 24 L MCHC 31 L RDW 18.7 H Plt Count 667 H Lymph % (Auto) [place] % (Auto) Eos % (Auto) Baso % (Auto) Lymph # [place] # Eos # Baso # Seg Neutrophils % Monocytes % (Manual) Monocytes # (Manual) D-Dimer ABG pH ABG pO2 ABG HCO3 ABG O2 Saturation ABG Base Excess ABG Hemoglobin Oxyhemoglobin Sodium 148 H D Potassium 5.1 H Chloride 111.9 H Carbon Dioxide BUN 26 H Creatinine Glucose 236 H POC Glucose 253 H Lactic Acid Calcium Magnesium AST 67 H ALT Lactate Dehydrogenase Total Creatine Kinase C-Reactive Protein Total Protein 5.9 L Albumin 2.8 L Free T4 Urine WBC (Auto) Urine Total Protein Digoxin Salicylates Acetaminophen 01/11/20 01/11/20 01/11/20 06:10 12:59 14:22 WBC RBC Hgb Hct MCV MCH MCHC RDW Plt Count Lymph % (Auto) [place] % (Auto) Eos % (Auto) Baso % (Auto) Lymph # [place] # Eos # Baso # Seg Neutrophils % Monocytes % (Manual) Monocytes # (Manual) D-Dimer ABG pH ABG pO2 ABG HCO3 ABG O2 Saturation ABG Base Excess ABG Hemoglobin Oxyhemoglobin Sodium Potassium Chloride Carbon Dioxide BUN Creatinine Glucose POC Glucose 261 H 234 H 220 H Lactic Acid Calcium Magnesium AST ALT Lactate Dehydrogenase Total Creatine Kinase C-Reactive Protein Total Protein Albumin Free T4 Urine WBC (Auto) Urine Total Protein Digoxin Salicylates Acetaminophen 01/11/20 01/11/20 01/12/20 17:18 21:20 00:45 WBC RBC Hgb Hct MCV MCH MCHC RDW Plt Count Lymph % (Auto) [place] % (Auto) Eos % (Auto) Baso % (Auto) Lymph # [place] # Eos # Baso # Seg Neutrophils % Monocytes % (Manual) Monocytes # (Manual) D-Dimer ABG pH ABG pO2 ABG HCO3 ABG O2 Saturation ABG Base Excess ABG Hemoglobin Oxyhemoglobin Sodium Potassium Chloride Carbon Dioxide BUN Creatinine Glucose POC Glucose 264 H 299 H 289 H Lactic Acid Calcium Magnesium AST ALT Lactate Dehydrogenase Total Creatine Kinase C-Reactive Protein Total Protein Albumin Free T4 Urine WBC (Auto) Urine Total Protein Digoxin Salicylates Acetaminophen 01/12/20 01/12/20 01/12/20 04:35 06:10 11:29 WBC RBC Hgb Hct MCV MCH MCHC RDW Plt Count Lymph % (Auto) [place] % (Auto) Eos % (Auto) Baso % (Auto) Lymph # [place] # Eos # Baso # Seg Neutrophils % Monocytes % (Manual) Monocytes # (Manual) D-Dimer ABG pH ABG pO2 ABG HCO3 ABG O2 Saturation ABG Base Excess ABG Hemoglobin Oxyhemoglobin Sodium Potassium Chloride Carbon Dioxide BUN Creatinine Glucose POC Glucose 187 H 194 H 213 H Lactic Acid Calcium Magnesium AST ALT Lactate Dehydrogenase Total Creatine Kinase C-Reactive Protein Total Protein Albumin Free T4 Urine WBC (Auto) Urine Total Protein Digoxin Salicylates Acetaminophen 01/12/20 01/12/20 01/12/20 14:40 18:50 21:34 WBC RBC Hgb Hct MCV MCH MCHC RDW Plt Count Lymph % (Auto) [place] % (Auto) Eos % (Auto) Baso % (Auto) Lymph # [place] # Eos # Baso # Seg Neutrophils % Monocytes % (Manual) Monocytes # (Manual) D-Dimer ABG pH ABG pO2 ABG HCO3 ABG O2 Saturation ABG Base Excess ABG Hemoglobin Oxyhemoglobin Sodium Potassium Chloride Carbon Dioxide BUN Creatinine Glucose POC Glucose 288 H 292 H 147 H Lactic Acid Calcium Magnesium AST ALT Lactate Dehydrogenase Total Creatine Kinase C-Reactive Protein Total Protein Albumin Free T4 Urine WBC (Auto) Urine Total Protein Digoxin Salicylates Acetaminophen 01/12/20 01/13/20 01/13/20 23:16 04:00 05:27 WBC RBC Hgb Hct MCV MCH MCHC RDW Plt Count Lymph % (Auto) [place] % (Auto) Eos % (Auto) Baso % (Auto) Lymph # [place] # Eos # Baso # Seg Neutrophils % Monocytes % (Manual) Monocytes # (Manual) D-Dimer ABG pH ABG pO2 ABG HCO3 ABG O2 Saturation ABG Base Excess ABG Hemoglobin Oxyhemoglobin Sodium 149 H Potassium Chloride 112.4 H Carbon Dioxide 32 H BUN 28 H Creatinine Glucose 174 H POC Glucose 122 H 143 H Lactic Acid Calcium Magnesium AST ALT Lactate Dehydrogenase Total Creatine Kinase C-Reactive Protein Total Protein Albumin Free T4 Urine WBC (Auto) Urine Total Protein Digoxin Salicylates Acetaminophen 01/13/20 01/13/20 01/13/20 10:24 13:34 15:10 WBC RBC Hgb Hct MCV MCH MCHC RDW Plt Count Lymph % (Auto) [place] % (Auto) Eos % (Auto) Baso % (Auto) Lymph # [place] # Eos # Baso # Seg Neutrophils % Monocytes % (Manual) Monocytes # (Manual) D-Dimer ABG pH 7.223 L ABG pO2 ABG HCO3 33.1 H ABG O2 Saturation 94.7 L ABG Base Excess 4.2 H ABG Hemoglobin 8.5 L Oxyhemoglobin 92.1 L Sodium Potassium Chloride Carbon Dioxide BUN Creatinine Glucose POC Glucose 172 H 151 H Lactic Acid Calcium Magnesium AST ALT Lactate Dehydrogenase Total Creatine Kinase C-Reactive Protein Total Protein Albumin Free T4 Urine WBC (Auto) Urine Total Protein Digoxin Salicylates Acetaminophen 01/13/20 01/13/20 01/13/20 17:59 20:37 22:17 WBC RBC Hgb Hct MCV MCH MCHC RDW Plt Count Lymph % (Auto) [place] % (Auto) Eos % (Auto) Baso % (Auto) Lymph # [place] # Eos # Baso # Seg Neutrophils % Monocytes % (Manual) Monocytes # (Manual) D-Dimer ABG pH ABG pO2 ABG HCO3 ABG O2 Saturation ABG Base Excess ABG Hemoglobin Oxyhemoglobin Sodium Potassium Chloride Carbon Dioxide BUN Creatinine Glucose POC Glucose 114 H 152 H Lactic Acid Calcium Magnesium AST ALT Lactate Dehydrogenase Total Creatine Kinase C-Reactive Protein Total Protein Albumin Free T4 0.63 L Urine WBC (Auto) Urine Total Protein Digoxin Salicylates Acetaminophen 01/13/20 01/14/20 01/14/20 Unknown 02:10 05:20 WBC RBC 3.39 L Hgb 8.1 L Hct 28.4 L MCV MCH 24 L MCHC 29 L RDW 19.9 H Plt Count 713 H Lymph % (Auto) [place] % (Auto) 12.7 H Eos % (Auto) Baso % (Auto) 1.9 H Lymph # [place] # 1.3 H Eos # Baso # 0.2 H Seg Neutrophils % Monocytes % (Manual) Monocytes # (Manual) D-Dimer ABG pH ABG pO2 ABG HCO3 ABG O2 Saturation ABG Base Excess ABG Hemoglobin Oxyhemoglobin Sodium Potassium Chloride Carbon Dioxide BUN Creatinine Glucose POC Glucose 151 H 157 H Lactic Acid Calcium Magnesium AST ALT Lactate Dehydrogenase Total Creatine Kinase C-Reactive Protein Total Protein Albumin Free T4 Urine WBC (Auto) Urine Total Protein Digoxin Salicylates Acetaminophen 01/14/20 01/14/20 01/14/20 11:49 14:56 18:03 WBC RBC Hgb Hct MCV MCH MCHC RDW Plt Count Lymph % (Auto) [place] % (Auto) Eos % (Auto) Baso % (Auto) Lymph # [place] # Eos # Baso # Seg Neutrophils % Monocytes % (Manual) Monocytes # (Manual) D-Dimer ABG pH ABG pO2 ABG HCO3 ABG O2 Saturation ABG Base Excess ABG Hemoglobin Oxyhemoglobin Sodium Potassium Chloride Carbon Dioxide BUN Creatinine Glucose POC Glucose 139 H 112 H 134 H Lactic Acid Calcium Magnesium AST ALT Lactate Dehydrogenase Total Creatine Kinase C-Reactive Protein Total Protein Albumin Free T4 Urine WBC (Auto) Urine Total Protein Digoxin Salicylates Acetaminophen 01/14/20 01/15/20 01/15/20 22:03 02:21 05:28 WBC RBC Hgb Hct MCV MCH MCHC RDW Plt Count Lymph % (Auto) [place] % (Auto) Eos % (Auto) Baso % (Auto) Lymph # [place] # Eos # Baso # Seg Neutrophils % Monocytes % (Manual) Monocytes # (Manual) D-Dimer ABG pH ABG pO2 ABG HCO3 ABG O2 Saturation ABG Base Excess ABG Hemoglobin Oxyhemoglobin Sodium Potassium Chloride Carbon Dioxide BUN Creatinine Glucose POC Glucose 173 H 129 H 127 H Lactic Acid Calcium Magnesium AST ALT Lactate Dehydrogenase Total Creatine Kinase C-Reactive Protein Total Protein Albumin Free T4 Urine WBC (Auto) Urine Total Protein Digoxin Salicylates Acetaminophen 01/15/20 01/15/20 01/15/20 10:43 16:14 18:25 WBC RBC Hgb Hct MCV MCH MCHC RDW Plt Count Lymph % (Auto) [place] % (Auto) Eos % (Auto) Baso % (Auto) Lymph # [place] # Eos # Baso # Seg Neutrophils % Monocytes % (Manual) Monocytes # (Manual) D-Dimer ABG pH ABG pO2 ABG HCO3 ABG O2 Saturation ABG Base Excess ABG Hemoglobin Oxyhemoglobin Sodium Potassium Chloride Carbon Dioxide BUN Creatinine Glucose POC Glucose 150 H 133 H 166 H Lactic Acid Calcium Magnesium AST ALT Lactate Dehydrogenase Total Creatine Kinase C-Reactive Protein Total Protein Albumin Free T4 Urine WBC (Auto) Urine Total Protein Digoxin Salicylates Acetaminophen 01/15/20 01/16/20 01/16/20 23:03 02:11 06:00 WBC RBC 3.19 L Hgb 7.9 L Hct 26.2 L MCV 82 L MCH 25 L MCHC 30 L RDW 20.1 H Plt Count 466 H Lymph % (Auto) 12.9 L [place] % (Auto) 11.2 H Eos % (Auto) 11.0 H Baso % (Auto) Lymph # 1.1 L [place] # 0.9 H Eos # 0.9 H Baso # Seg Neutrophils % Monocytes % (Manual) Monocytes # (Manual) D-Dimer ABG pH ABG pO2 ABG HCO3 ABG O2 Saturation ABG Base Excess ABG Hemoglobin Oxyhemoglobin Sodium Potassium Chloride Carbon Dioxide BUN Creatinine Glucose POC Glucose 143 H 136 H Lactic Acid Calcium Magnesium AST ALT Lactate Dehydrogenase Total Creatine Kinase C-Reactive Protein Total Protein Albumin Free T4 Urine WBC (Auto) Urine Total Protein Digoxin Salicylates Acetaminophen 01/16/20 01/16/20 01/16/20 06:00 06:10 11:52 WBC RBC Hgb Hct MCV MCH MCHC RDW Plt Count Lymph % (Auto) [place] % (Auto) Eos % (Auto) Baso % (Auto) Lymph # [place] # Eos # Baso # Seg Neutrophils % Monocytes % (Manual) Monocytes # (Manual) D-Dimer ABG pH ABG pO2 ABG HCO3 ABG O2 Saturation ABG Base Excess ABG Hemoglobin Oxyhemoglobin Sodium 152 H Potassium Chloride 110.2 H Carbon Dioxide 36 H BUN 23 H Creatinine 0.7 L Glucose 161 H POC Glucose 192 H 184 H Lactic Acid Calcium Magnesium AST ALT Lactate Dehydrogenase Total Creatine Kinase C-Reactive Protein Total Protein Albumin Free T4 Urine WBC (Auto) Urine Total Protein Digoxin Salicylates Acetaminophen 01/16/20 01/16/20 01/16/20 15:15 17:12 22:12 WBC RBC Hgb Hct MCV MCH MCHC RDW Plt Count Lymph % (Auto) [place] % (Auto) Eos % (Auto) Baso % (Auto) Lymph # [place] # Eos # Baso # Seg Neutrophils % Monocytes % (Manual) Monocytes # (Manual) D-Dimer ABG pH ABG pO2 ABG HCO3 ABG O2 Saturation ABG Base Excess ABG Hemoglobin Oxyhemoglobin Sodium Potassium Chloride Carbon Dioxide BUN Creatinine Glucose POC Glucose 224 H 183 H 106 H Lactic Acid Calcium Magnesium AST ALT Lactate Dehydrogenase Total Creatine Kinase C-Reactive Protein Total Protein Albumin Free T4 Urine WBC (Auto) Urine Total Protein Digoxin Salicylates Acetaminophen 01/17/20 01/17/20 01/17/20 02:13 06:10 06:20 WBC RBC 3.50 L Hgb 8.6 L Hct 29.0 L MCV 83 L MCH 25 L MCHC 30 L RDW 21.1 H Plt Count 517 H Lymph % (Auto) [place] % (Auto) 9.7 H Eos % (Auto) 11.9 H Baso % (Auto) Lymph # [place] # Eos # 1.0 H Baso # Seg Neutrophils % Monocytes % (Manual) Monocytes # (Manual) D-Dimer ABG pH ABG pO2 ABG HCO3 ABG O2 Saturation ABG Base Excess ABG Hemoglobin Oxyhemoglobin Sodium Potassium Chloride Carbon Dioxide BUN Creatinine Glucose POC Glucose 164 H 178 H Lactic Acid Calcium Magnesium AST ALT Lactate Dehydrogenase Total Creatine Kinase C-Reactive Protein Total Protein Albumin Free T4 Urine WBC (Auto) Urine Total Protein Digoxin Salicylates Acetaminophen 01/17/20 01/17/20 01/17/20 06:20 10:48 13:23 WBC RBC Hgb Hct MCV MCH MCHC RDW Plt Count Lymph % (Auto) [place] % (Auto) Eos % (Auto) Baso % (Auto) Lymph # [place] # Eos # Baso # Seg Neutrophils % Monocytes % (Manual) Monocytes # (Manual) D-Dimer ABG pH ABG pO2 ABG HCO3 ABG O2 Saturation ABG Base Excess ABG Hemoglobin Oxyhemoglobin Sodium 148 H Potassium Chloride Carbon Dioxide 34 H BUN 21 H Creatinine 0.6 L Glucose 151 H POC Glucose 172 H 161 H Lactic Acid Calcium Magnesium AST ALT Lactate Dehydrogenase Total Creatine Kinase C-Reactive Protein Total Protein Albumin Free T4 Urine WBC (Auto) Urine Total Protein Digoxin Salicylates Acetaminophen 01/17/20 01/17/20 01/18/20 17:23 21:46 04:45 WBC RBC 3.28 L Hgb 8.0 L Hct 27.0 L MCV 82 L MCH 24 L MCHC 30 L RDW 21.0 H Plt Count 450 H Lymph % (Auto) [place] % (Auto) 11.5 H Eos % (Auto) 13.1 H Baso % (Auto) Lymph # [place] # Eos # 0.9 H Baso # Seg Neutrophils % Monocytes % (Manual) Monocytes # (Manual) D-Dimer ABG pH ABG pO2 ABG HCO3 ABG O2 Saturation ABG Base Excess ABG Hemoglobin Oxyhemoglobin Sodium Potassium Chloride Carbon Dioxide BUN Creatinine Glucose POC Glucose 138 H 106 H Lactic Acid Calcium Magnesium AST ALT Lactate Dehydrogenase Total Creatine Kinase C-Reactive Protein Total Protein Albumin Free T4 Urine WBC (Auto) Urine Total Protein Digoxin Salicylates Acetaminophen 01/18/20 01/18/20 01/18/20 04:45 10:38 12:19 WBC RBC Hgb Hct MCV MCH MCHC RDW Plt Count Lymph % (Auto) [place] % (Auto) Eos % (Auto) Baso % (Auto) Lymph # [place] # Eos # Baso # Seg Neutrophils % Monocytes % (Manual) Monocytes # (Manual) D-Dimer ABG pH ABG pO2 ABG HCO3 ABG O2 Saturation ABG Base Excess ABG Hemoglobin Oxyhemoglobin Sodium Potassium Chloride Carbon Dioxide 35 H BUN Creatinine Glucose 71 L POC Glucose 106 H 138 H Lactic Acid Calcium Magnesium AST ALT Lactate Dehydrogenase Total Creatine Kinase C-Reactive Protein Total Protein Albumin Free T4 Urine WBC (Auto) Urine Total Protein Digoxin Salicylates Acetaminophen 01/18/20 01/18/20 01/19/20 13:38 17:54 03:36 WBC RBC Hgb Hct MCV MCH MCHC RDW Plt Count Lymph % (Auto) [place] % (Auto) Eos % (Auto) Baso % (Auto) Lymph # [place] # Eos # Baso # Seg Neutrophils % Monocytes % (Manual) Monocytes # (Manual) D-Dimer ABG pH ABG pO2 ABG HCO3 ABG O2 Saturation ABG Base Excess ABG Hemoglobin Oxyhemoglobin Sodium Potassium Chloride Carbon Dioxide BUN Creatinine Glucose POC Glucose 129 H 144 H 185 H Lactic Acid Calcium Magnesium AST ALT Lactate Dehydrogenase Total Creatine Kinase C-Reactive Protein Total Protein Albumin Free T4 Urine WBC (Auto) Urine Total Protein Digoxin Salicylates Acetaminophen 01/19/20 01/19/20 01/19/20 05:45 05:45 06:16 WBC RBC 3.30 L Hgb 8.1 L Hct 27.2 L MCV 82 L MCH 25 L MCHC 30 L RDW 20.6 H Plt Count Lymph % (Auto) 10.3 L [place] % (Auto) 13.0 H Eos % (Auto) 7.9 H Baso % (Auto) Lymph # 0.8 L [place] # 1.0 H Eos # 0.6 H Baso # Seg Neutrophils % Monocytes % (Manual) Monocytes # (Manual) D-Dimer ABG pH ABG pO2 ABG HCO3 ABG O2 Saturation ABG Base Excess ABG Hemoglobin Oxyhemoglobin Sodium Potassium Chloride Carbon Dioxide 34 H BUN Creatinine Glucose 167 H POC Glucose 182 H Lactic Acid Calcium Magnesium AST ALT Lactate Dehydrogenase Total Creatine Kinase C-Reactive Protein Total Protein Albumin Free T4 Urine WBC (Auto) Urine Total Protein Digoxin Salicylates Acetaminophen 01/19/20 01/19/20 01/19/20 09:18 13:46 18:17 WBC RBC Hgb Hct MCV MCH MCHC RDW Plt Count Lymph % (Auto) [place] % (Auto) Eos % (Auto) Baso % (Auto) Lymph # [place] # Eos # Baso # Seg Neutrophils % Monocytes % (Manual) Monocytes # (Manual) D-Dimer ABG pH ABG pO2 ABG HCO3 ABG O2 Saturation ABG Base Excess ABG Hemoglobin Oxyhemoglobin Sodium Potassium Chloride Carbon Dioxide BUN Creatinine Glucose POC Glucose 181 H 238 H 189 H Lactic Acid Calcium Magnesium AST ALT Lactate Dehydrogenase Total Creatine Kinase C-Reactive Protein Total Protein Albumin Free T4 Urine WBC (Auto) Urine Total Protein Digoxin Salicylates Acetaminophen 01/19/20 01/20/20 01/20/20 22:19 02:08 05:54 WBC RBC Hgb Hct MCV MCH MCHC RDW Plt Count Lymph % (Auto) [place] % (Auto) Eos % (Auto) Baso % (Auto) Lymph # [place] # Eos # Baso # Seg Neutrophils % Monocytes % (Manual) Monocytes # (Manual) D-Dimer ABG pH ABG pO2 ABG HCO3 ABG O2 Saturation ABG Base Excess ABG Hemoglobin Oxyhemoglobin Sodium Potassium Chloride Carbon Dioxide BUN Creatinine Glucose POC Glucose 138 H 196 H 200 H Lactic Acid Calcium Magnesium AST ALT Lactate Dehydrogenase Total Creatine Kinase C-Reactive Protein Total Protein Albumin Free T4 Urine WBC (Auto) Urine Total Protein Digoxin Salicylates Acetaminophen 01/20/20 01/20/20 01/21/20 10:40 17:09 00:49 WBC RBC Hgb Hct MCV MCH MCHC RDW Plt Count Lymph % (Auto) [place] % (Auto) Eos % (Auto) Baso % (Auto) Lymph # [place] # Eos # Baso # Seg Neutrophils % Monocytes % (Manual) Monocytes # (Manual) D-Dimer ABG pH ABG pO2 ABG HCO3 ABG O2 Saturation ABG Base Excess ABG Hemoglobin Oxyhemoglobin Sodium Potassium Chloride Carbon Dioxide BUN Creatinine Glucose POC Glucose 163 H 135 H 174 H Lactic Acid Calcium Magnesium AST ALT Lactate Dehydrogenase Total Creatine Kinase C-Reactive Protein Total Protein Albumin Free T4 Urine WBC (Auto) Urine Total Protein Digoxin Salicylates Acetaminophen 01/21/20 01/21/20 01/21/20 05:47 13:01 13:01 WBC RBC 3.06 L Hgb 7.5 L Hct 25.5 L MCV 83 L MCH 24 L MCHC 29 L RDW 22.0 H Plt Count Lymph % (Auto) [place] % (Auto) Eos % (Auto) Baso % (Auto) Lymph # [place] # Eos # Baso # Seg Neutrophils % Monocytes % (Manual) 8.0 H Monocytes # (Manual) D-Dimer ABG pH ABG pO2 ABG HCO3 ABG O2 Saturation ABG Base Excess ABG Hemoglobin Oxyhemoglobin Sodium 151 H Potassium Chloride Carbon Dioxide 39 H BUN Creatinine Glucose 122 H POC Glucose 180 H Lactic Acid Calcium Magnesium AST ALT Lactate Dehydrogenase Total Creatine Kinase C-Reactive Protein Total Protein Albumin 2.7 L Free T4 Urine WBC (Auto) Urine Total Protein Digoxin Salicylates Acetaminophen 01/21/20 01/22/20 01/22/20 18:37 01:20 04:45 WBC RBC Hgb Hct MCV MCH MCHC RDW Plt Count Lymph % (Auto) [place] % (Auto) Eos % (Auto) Baso % (Auto) Lymph # [place] # Eos # Baso # Seg Neutrophils % Monocytes % (Manual) Monocytes # (Manual) D-Dimer ABG pH ABG pO2 174.7 H ABG HCO3 41.5 H ABG O2 Saturation ABG Base Excess 14.6 H ABG Hemoglobin 7.6 L Oxyhemoglobin Sodium Potassium Chloride Carbon Dioxide BUN Creatinine Glucose POC Glucose 198 H 190 H Lactic Acid Calcium Magnesium AST ALT Lactate Dehydrogenase Total Creatine Kinase C-Reactive Protein Total Protein Albumin Free T4 Urine WBC (Auto) Urine Total Protein Digoxin Salicylates Acetaminophen 01/22/20 01/22/20 01/22/20 05:46 12:38 18:22 WBC RBC Hgb Hct MCV MCH MCHC RDW Plt Count Lymph % (Auto) [place] % (Auto) Eos % (Auto) Baso % (Auto) Lymph # [place] # Eos # Baso # Seg Neutrophils % Monocytes % (Manual) Monocytes # (Manual) D-Dimer ABG pH ABG pO2 ABG HCO3 ABG O2 Saturation ABG Base Excess ABG Hemoglobin Oxyhemoglobin Sodium Potassium Chloride Carbon Dioxide BUN Creatinine Glucose POC Glucose 200 H 203 H 201 H Lactic Acid Calcium Magnesium AST ALT Lactate Dehydrogenase Total Creatine Kinase C-Reactive Protein Total Protein Albumin Free T4 Urine WBC (Auto) Urine Total Protein Digoxin Salicylates Acetaminophen 01/22/20 01/23/20 01/23/20 23:51 05:34 09:50 WBC RBC Hgb Hct MCV MCH MCHC RDW Plt Count Lymph % (Auto) [place] % (Auto) Eos % (Auto) Baso % (Auto) Lymph # [place] # Eos # Baso # Seg Neutrophils % Monocytes % (Manual) Monocytes # (Manual) D-Dimer ABG pH ABG pO2 ABG HCO3 36.9 H ABG O2 Saturation ABG Base Excess 10.6 H ABG Hemoglobin 7.4 L Oxyhemoglobin 93.9 L Sodium Potassium Chloride Carbon Dioxide BUN Creatinine Glucose POC Glucose 191 H 190 H Lactic Acid Calcium Magnesium AST ALT Lactate Dehydrogenase Total Creatine Kinase C-Reactive Protein Total Protein Albumin Free T4 Urine WBC (Auto) Urine Total Protein Digoxin Salicylates Acetaminophen Allied health notes reviewed: nursing
[2020-01-23 21:30] LABS: ABG Base Excess 9.1 mmol/L (-2.0-3.0); ABG HCO3 36.2 mmol/L (20.0-26.0); ABG Methemoglobin 0.6 % (0.0-1.5); ABG Oxygen Saturation 89.8 % (95.0-99.0); ABG PCO2 64.9 mm Hg; ABG PH 7.364 pH Units (7.350-7.450); ABG PO2 63.2 mm Hg (80.0-90.0)
[2020-01-24] MEDS: IPRATROPIUM/ALBUTEROL SULFATE 3 ML AMPUL.NEB IH SCH ×3 (00:07→15:25)
[2020-01-24] MEDS: INSULIN LISPRO 100 UNIT/ML SUB-Q SCH ×3 (01:03→13:36)
--- NOTE | 2020-01-24 02:45 | XRay Report ---
CHEST 1 VIEW INDICATION / CLINICAL INFORMATION: Pneumonia. FINDINGS: SUPPORT DEVICES: No significant change in position. HEART / MEDIASTINUM: The cardiomediastinal silhouette has not significantly changed in the interim. LUNGS / PLEURA: Slight improvement in bilateral lower lung airspace pneumonia when compared to 020 Signer Name: Mati Sánchez MD Signed: 01/24/2020 2:41 AM Workstation Name: [email or web address]
[2020-01-24] MEDS: fentaNYL DRIP Premix 2,000 MCG/100 ML BAG IV SCH (03:29)
[2020-01-24 04:56] LABS: Hematocrit 26.2 % (35.5-45.6); Hemoglobin 7.8 gm/dl (11.8-15.2); Mean Corpuscular HGB Conc 30 % (32-34); Mean Corpuscular Volume 82 fl (84-94); Platelet Count 224 K/mm3 (140-440)
[2020-01-24 05:04] LABS: Red Cell Distribution Width 21.2 % (13.2-15.2)
[2020-01-24 05:13] LABS: Calcium 10.9 mg/dL (8.4-10.2)
[2020-01-24] MEDS: LEVOTHYROXINE 88 MCG TAB PO SCH (06:18)
[2020-01-24] MEDS: DOCUSATE SODIUM 100 MG/10 ML ORAL LIQD PO SCH (09:41)
[2020-01-24] MEDS: FAMOTIDINE 20 MG TAB PO SCH (09:42)
[2020-01-24] MEDS: INSULIN GLARGINE 100 UNITS/ML SUB-Q SCH (09:42)
[2020-01-24] MEDS: ACETAMINOPHEN 325 MG/10.15 ML ORAL LIQD UNIT DOSE PO PRN (09:49)
--- NOTE | 2020-01-24 10:13 | Discharge Summary ---
Providers - Providers Date of Admission: 12/18/19 13:31 Date of discharge: 01/24/20 Attending physician: SCARLET ROCHA 12/18/19 12:35 Consult to Dietitian/Nutrition [CONS] Routine Physician Instructions: Reason For Exam: Reason for Consult: Evaluate nutritional intake Consult to Physician [CONS] Stat Comment: Consulting Provider: IRMA WASHBURN Physician Instructions: Reason For Exam: fever ams reap failure suspect covid Consult to Physician [CONS] Stat Comment: CLD OFC TO ADV OF CONSULT @1244 Consulting Provider: ARMIDA HANNON Physician Instructions: Reason For Exam: acute resp failure 12/18/19 15:11 Consult to Dietitian/Nutrition [CONS] Routine Physician Instructions: Reason For Exam: Reason for Consult: Write/Manage Tube Feeding 12/21/19 10:58 Occupational Therapy Evaluate and Treat [CONS] Routine Comment: Reason For Exam: ADLS Physical Therapy Evaluation and Treat [CONS] Routine Comment: Reason For Exam: deconditioning 12/21/19 20:02 Speech Therapy Evaluation and Treat [CONS] Routine Reason For Exam: post extubation eval 12/24/19 16:23 Consult to Physician [CONS] Routine Comment: Consulting Provider: FIDENICO LOMAX Physician Instructions: Reason For Exam: Hypernatremia 12/27/19 16:57 Consult to Dietitian/Nutrition [CONS] Routine Physician Instructions: Reason For Exam: Reason for Consult: Evaluate nutritional intake 12/27/19 17:04 Consult to PICC Line RN [CONS] Routine Reason For Exam: sepsis Type Line:: PICC 12/27/19 19:45 Consult to Wound/ET Nurse [CONS] Stat Reason For Exam: wound eval- multiple blisters left arm-some burst 01/01/20 09:35 Consult to Physician [CONS] Urgent Comment: Consulting Provider: EMILY MICHELLE Physician Instructions: Reason For Exam: cardiology consult 01/09/20 16:45 Consult to Physician [CONS] Routine Comment: Consulting Provider: DENNIS ROTH Physician Instructions: Reason For Exam: Tracheostomy placement Primary care physician: SAND DRIER Hospitalization Reason for admission: Acute hypoxic respiratory failure Condition: Critical Pertinent studies: CT head CT chest Multiple chest x-rays Abdominal x-ray Chest ultrasound Echocardiogram CT chest CT abdomen and pelvis Procedures: Bronchoscopy Trach and PEG Hospital course: 59-year-old male past medical history of HTN, DM 2, hypothyroidism, obesity, obstructive sleep apnea was admitted with confusion after being found by a neighbor. On arrival patient was found to be lethargic, and in respiratory distress and hypoxic. Patient was intubated in the ER because of hypoxic respiratory failure. Also noted to be hypotensive, placed on pressor admitted to ICU. Patient is negative for COVID-19, being treated for bilateral pneumonia. JAGDEEP improved with IV fluid, ID and critical care cardiology evaluated the patient and medications were optimized Patient's blood pressures gradually significantly improved off pressors, maintaining reasonable range, completed antibiotic course for bilateral pneumonia Evaluated by nephrology and managed JAGDEEP appropriately renal function back to baseline normal, patient was briefly bradycardic cardiology evaluated Adjusted the medications, bradycardia resolved Patient was unable to wean/vent dependent evaluated by surgery underwent trach and PEG placement Today patient is tracheostomy on vent support, vital signs stable Physical examination as mentioned [facility] case management has set up LTAC placement at [facility] Patient is hemodynamically stable with guarded prognosis due to multiple comorbidities. Diagnosis; and management --COVID-19 negative x2 --Acute hypoxic respiratory failure; status post trach and PEG On vent, tracheostomy care, pulmonary critical following --Sepsis with septic shock; monitor off vasopressors --Bilateral pneumonia;Completed antibiotics, monitor off antibiotics, Ventilatory support --Acute kidney injury/ATN; Resolved, avoid nephrotoxins --Obesity; BMI 33.1 Patient needs weight reduction when medically stable --Sinus bradycardia; present on admission Now resolved, heart rate in 70s, Cardiology following --Hypothyroidism; continue Synthroid --History of diastolic congestive heart failure --DVT prophylaxis; Lovenox --Full CODE STATUS Patient is being discharged and transferred to LTAC/[facility] Disposition: [id number] MEDICARE CERT LT Time spent for discharge: 40 MIN Core Measure Documentation - Palliative Care Palliative Care/ Comfort Measures: Not Applicable - Core Measures Any of the following diagnoses?: none Exam - Constitutional Vitals: Temp Pulse Resp BP Pulse Ox 99.9 F H 116 H 20 124/65 93 01/24/20 04:00 01/24/20 08:15 01/24/20 09:49 01/24/20 08:15 01/24/20 08:15 General appearance: Present: no acute distress, other (Status post tracheostomy on vent) - EENT Eyes: Present: PERRL, EOM intact - Neck Neck: Present: supple, normal ROM - Respiratory Respiratory effort: normal Respiratory: bilateral: diminished, rhonchi, negative: rales, wheezing - Cardiovascular Rhythm: regular Heart Sounds: Present: S1 & S2 - Extremities Extremities: no ischemia, No edema - Abdominal General gastrointestinal: Present: soft, non-tender, non-distended, normal bowel sounds - Integumentary Integumentary: Present: clear, warm - Musculoskeletal Musculoskeletal: other (On vent) - Psychiatric Psychiatric: other (On vent) - Neurologic Neurologic: other (On vent) Plan Activity: advance as tolerated Diet: other (Tube feeding per protocol) Additional Instructions: Patient is being transferred to [facility] for further evaluation and management Follow up with: PRIMARY CAREMD [Primary Care Provider] - 3-5 Days
--- NOTE | 2020-01-24 10:34 | Progress Note ---
Assessment and Plan Sinus bradycardia is uncertain echo: LVEF 45-50% TSH 2.3 A persistently elevated vagal tone or vasodepressor reaction is a possible etiology, versus underlying conduction system disease. Pneumonia negative COVID PCR x 2 Acute Respiratory failure s/p trach Acute kidney injury -resolved Positive MRSA-sputum Anemia Conservative cardiac management. Subjective Date of service: 01/24/20 Principal diagnosis: Ac. Hypoxemic Resp Failure; Septic Shock; Magdiel. PNA; PUI COVID-19; CHF; JOE Interval history: Awaits LTACH placement Objective Vital Signs Temp Pulse Pulse Pulse Resp Resp Resp 01/24/20 10:00 114 H 18 17 01/24/20 09:49 20 01/24/20 09:45 116 H 16 01/24/20 09:30 115 H 17 01/24/20 09:15 114 H 15 01/24/20 09:00 115 H 16 01/24/20 08:45 115 H 16 01/24/20 08:30 116 H 21 01/24/20 08:15 116 H 19 01/24/20 08:00 100.9 F H 115 H 115 H 17 01/24/20 07:45 115 H 19 01/24/20 07:30 112 H 14 01/24/20 07:15 114 H 15 01/24/20 07:00 116 H 19 01/24/20 06:45 111 H 21 01/24/20 06:30 116 H 19 01/24/20 06:15 117 H 20 01/24/20 06:00 116 H 18 01/24/20 05:45 117 H 18 01/24/20 05:30 116 H 18 01/24/20 05:15 117 H 17 01/24/20 05:00 115 H 17 01/24/20 04:45 115 H 19 01/24/20 04:30 114 H 15 01/24/20 04:15 114 H 20 01/24/20 04:00 99.9 F H 114 H 20 01/24/20 03:45 115 H 18 01/24/20 03:30 115 H 19 01/24/20 03:15 114 H 16 01/24/20 03:00 113 H 17 01/24/20 02:45 115 H 20 01/24/20 02:31 01/24/20 02:15 115 H 17 01/24/20 02:00 114 H 17 01/24/20 01:45 115 H 16 01/24/20 01:30 115 H 19 01/24/20 01:15 113 H 17 01/24/20 01:00 113 H 19 01/24/20 00:45 115 H 18 01/24/20 00:30 113 H 17 01/24/20 00:15 114 H 17 01/24/20 00:07 115 H 01/24/20 00:00 99.3 F 119 H 15 01/23/20 23:45 111 H 20 01/23/20 23:31 113 H 17 01/23/20 23:15 117 H 17 01/23/20 23:01 114 H 18 01/23/20 22:45 119 H 18 01/23/20 22:30 117 H 20 01/23/20 22:15 117 H 23 01/23/20 22:00 114 H 20 01/23/20 21:45 113 H 17 01/23/20 21:30 111 H 18 01/23/20 21:15 113 H 17 01/23/20 21:00 112 H 20 01/23/20 20:45 113 H 22 01/23/20 20:30 111 H 17 01/23/20 20:15 108 H 18 01/23/20 20:00 100.4 F H 110 H 111 H 108 H 12 20 01/23/20 19:45 113 H 22 01/23/20 19:30 108 H 18 01/23/20 19:15 111 H 18 01/23/20 19:00 111 H 19 01/23/20 18:45 111 H 17 01/23/20 18:30 110 H 21 01/23/20 18:15 111 H 21 01/23/20 18:00 115 H 24 01/23/20 17:45 115 H 28 H 01/23/20 17:30 112 H 20 01/23/20 17:15 109 H 22 01/23/20 17:00 107 H 25 H 01/23/20 16:45 111 H 22 01/23/20 16:30 113 H 23 01/23/20 16:15 111 H 21 01/23/20 16:00 100.9 F H 109 H 111 H 23 20 01/23/20 15:45 112 H 17 01/23/20 15:42 109 H 01/23/20 15:30 109 H 18 01/23/20 15:15 107 H 20 01/23/20 15:00 104 H 20 01/23/20 14:45 100 H 15 01/23/20 14:30 101 H 13 01/23/20 14:15 105 H 24 01/23/20 14:00 100.9 F H 105 H 25 H 01/23/20 13:45 106 H 25 H 01/23/20 13:30 103 H 25 H 01/23/20 13:15 103 H 26 H 01/23/20 13:00 106 H 25 H 01/23/20 12:48 103 H 01/23/20 12:45 104 H 25 H 01/23/20 12:30 106 H 25 H 01/23/20 12:15 109 H 25 H 01/23/20 12:00 97.8 F 107 H 107 H 25 H 01/23/20 11:45 110 H 18 01/23/20 11:30 109 H 17 01/23/20 11:15 108 H 20 01/23/20 11:00 109 H 20 01/23/20 10:45 109 H 20 BP Pulse Ox 01/24/20 10:00 128/69 93 01/24/20 09:49 01/24/20 09:45 128/65 93 01/24/20 09:30 113/64 93 01/24/20 09:15 117/60 93 01/24/20 09:00 117/66 93 01/24/20 08:45 120/67 93 01/24/20 08:30 126/70 94 01/24/20 08:15 124/65 93 01/24/20 08:00 128/67 96 01/24/20 07:45 126/65 92 01/24/20 07:30 120/70 93 01/24/20 07:15 125/72 93 01/24/20 07:00 119/68 92 01/24/20 06:45 117/68 92 01/24/20 06:30 126/70 92 01/24/20 06:15 123/70 92 01/24/20 06:00 124/70 91 01/24/20 05:45 123/74 93 01/24/20 05:30 121/69 93 01/24/20 05:15 128/72 93 07/20/20 05:00 127/78 94 07/20/20 04:45 119/72 95 07/20/20 04:30 121/73 93 07/20/20 04:15 134/65 93 07/20/20 04:00 120/69 96 07/20/20 03:45 126/70 93 07/20/20 03:30 127/72 92 07/20/20 03:15 123/70 91 07/20/20 03:00 131/74 88 07/20/20 02:45 135/81 91 07/20/20 02:31 118/82 93 07/20/20 02:15 119/74 96 07/20/20 02:00 117/87 94 07/20/20 01:45 129/66 94 07/20/20 01:30 135/70 94 07/20/20 01:15 119/75 94 07/20/20 01:00 123/78 93 07/20/20 00:45 126/68 92 07/20/20 00:30 125/69 92 07/20/20 00:15 130/79 92 07/20/20 00:07 120/69 96 07/20/20 00:00 122/89 93 07/19/20 23:45 128/86 92 07/19/20 23:31 128/65 91 07/19/20 23:15 155/62 92 07/19/20 23:01 154/48 92 07/19/20 22:45 140/74 91 07/19/20 22:30 133/62 93 07/19/20 22:15 123/65 93 07/19/20 22:00 123/63 94 07/19/20 21:45 124/67 93 07/19/20 21:30 124/61 91 07/19/20 21:15 130/62 93 07/19/20 21:00 114/65 90 07/19/20 20:45 137/71 91 07/19/20 20:30 125/59 93 07/19/20 20:15 116/60 94 07/19/20 20:00 119/62 96 07/19/20 19:45 109/64 94 07/19/20 19:30 113/62 92 07/19/20 19:15 122/59 93 07/19/20 19:00 114/63 93 07/19/20 18:45 117/62 93 01/23/20 18:30 120/62 90 01/23/20 18:15 119/59 92 01/23/20 18:00 115/64 94 20 17:45 130/79 90 20 17:30 126/66 90 01/23/20 17:15 91 01/23/20 17:00 118/61 91 01/23/20 16:45 112/54 92 01/23/20 16:30 115/58 92 20 16:15 114/60 91 01/23/20 16:00 123/57 93 01/23/20 15:45 122/66 94 01/23/20 15:42 117/60 95 01/23/20 15:30 117/60 93 01/23/20 15:15 121/67 94 01/23/20 15:00 112/64 92 01/23/20 14:45 112/57 93 01/23/20 14:30 106/62 92 01/23/20 14:15 105/50 95 01/23/20 14:00 103/47 96 01/23/20 13:45 110/47 96 01/23/20 13:30 120/54 95 01/23/20 13:15 120/52 95 01/23/20 13:00 112/58 95 01/23/20 12:48 104/48 98 01/23/20 12:45 104/48 95 01/23/20 12:30 98/46 96 01/23/20 12:15 107/44 95 01/23/20 12:00 100/53 96 01/23/20 11:45 106/53 96 01/23/20 11:30 105/59 96 01/23/20 11:15 114/57 95 01/23/20 11:00 109/55 94 01/23/20 10:45 109/56 93 - Physical Examination General: Other (Vent to trach) HEENT: Positive: PERRL Neck: Positive: Other (vent to trach) Cardiac: Positive: Reg Rate and Rhythm - Labs and Meds CBC 01/24/20 Range/Units 04:34 WBC 16.7 H (4.5-11.0) K/mm3 RBC 3.20 L (3.65-5.03) M/mm3 Hgb 7.8 L (11.8-15.2) gm/dl Hct 26.2 L (35.5-45.6) % Plt Count 224 (140-440) K/mm3 Comprehensive Metabolic Panel 01/24/20 Range/Units 04:34 Sodium 147 H (137-145) mmol/L Potassium 4.5 (3.6-5.0) mmol/L Chloride 99.9 (98-107) mmol/L Carbon Dioxide 36 H (22-30) mmol/L BUN 25 H (9-20) mg/dL Creatinine 1.5 (0.8-1.5) mg/dL Glucose 239 H (75-100) mg/dL Calcium 10.9 H (8.4-10.2) mg/dL
--- NOTE | 2020-01-24 14:56 | Progress Note ---
Assessment and Plan Acute Hypoxemic Respiratory Failure Severe Sepsis with Shock Bilateral Pneumonia PUI COVID-19 Morbid Obesity H/O CHF JOE - repeat CXR shows im[proving infiltrates - wean as tolerated - keep set rate at 12/min - Am labs reviewed and addressed - no new issues otherwise, continue care as below; - continue bowel regimen - keep peep at 8 cm H2O re: bibasilar atelectasis - prn CXR's & ABG's at this point - Daily SAT and SBT assessment as tolerated - accuchecks with glycemic control per SSI (While critically ill target blood glucose of 140-180 mg/dL; avoid hypoglycemia) - sedation for target RASS 0 to -1 - continue to wean supplemental oxygen for target O2 sat's > 92% acutely - continue bronchodilators with pulmonary hygiene per RT - VAP bundle addressed - lung protective strategies - wean per pulmonary driven protocols otherwise - continue to avoid benzodiazepine's, reduce the possibility of delirium - adjust AB's per ID rec's - prn analgesia per CPOT score - Maintenance of sleep-wake cycle - continue to avoid benzodiazepine's, reduce the possibility of delirium - continue enteral nutritional support at goal rate as tolerated - G.I. & VTE prophylaxis - PT/OT/ROM exercises - continue mobility protocols for pressure ulcer prophylaxis - repeat COVID-19 test negative - continue aspiration precautions - continue accuchecks with glycemic control per SSI (While critically ill target blood glucose of 140-180 mg/dL; avoid hypoglycemia) - Monitor hemodynamics closely - continue other care per attending / other consultants - discharge planning ongoing concurrently - LTAC evaluation ongoing .... Re-evaluate in am & prn CONDITION: CRITICAL PROGNOSIS: GUARDED CODE STATUS: FULL CODE The high probability of a clinically significant, sudden or life-threatening deterioration of the [respiratory, cardiovascular, GI & neurologic] system(s) required my full and direct attention, intervention and personal management. The aggregate critical care time was [32] minutes without overlap. Time includes spent on; [x] Data Review and interpretation [x] Patient assessment and monitoring of vital signs [x] Documentation [x] Medication orders and management Subjective Date of service: 01/24/20 Principal diagnosis: Ac. Hypoxemic Resp Failure; Septic Shock; Magdiel. PNA; PUI COVID-19; CHF; JOE Interval history: Patient is seen today for: Acute Hypoxemic Respiratory Failure; Severe Sepsis with Shock; Bilateral Pneumonia; PUI COVID-19; Morbid Obesity; H/O CHF; JOE Seen and examined at bedside; 24hour events reviewed; nursing and respiratory care staff consulted; no adverse overnight events reported to me; resting peacefully in bed; remains on MVS; weaning tenuously; tentatively for transfer to LTAC today; AMS is persistent Objective Vital Signs - 12hr 01/24/20 01/24/20 01/24/20 03:00 03:15 03:30 Temperature Pulse Rate 113 H 114 H 115 H Pulse Rate [ Bilateral] Pulse Rate [ From Monitor] Respiratory 17 16 19 Rate Respiratory Rate [Bilateral ] Respiratory Rate [pt denies ] Blood Pressure 131/74 123/70 127/72 O2 Sat by Pulse 88 91 92 Oximetry O2 Sat by Pulse Oximetry [ Assessment] 01/24/20 01/24/20 01/24/20 03:45 04:00 04:15 Temperature 99.9 F H Pulse Rate 115 H 114 H 114 H Pulse Rate [ Bilateral] Pulse Rate [ From Monitor] Respiratory 18 20 20 Rate Respiratory Rate [Bilateral ] Respiratory Rate [pt denies ] Blood Pressure 126/70 120/69 134/65 O2 Sat by Pulse 93 96 93 Oximetry O2 Sat by Pulse Oximetry [ Assessment] 01/24/20 01/24/20 01/24/20 04:30 04:45 05:00 Temperature Pulse Rate 114 H 115 H 115 H Pulse Rate [ Bilateral] Pulse Rate [ From Monitor] Respiratory 15 19 17 Rate Respiratory Rate [Bilateral ] Respiratory Rate [pt denies ] Blood Pressure 121/73 119/72 127/78 O2 Sat by Pulse 93 95 94 Oximetry O2 Sat by Pulse Oximetry [ Assessment] 01/24/20 01/24/20 01/24/20 05:15 05:30 05:45 Temperature Pulse Rate 117 H 116 H 117 H Pulse Rate [ Bilateral] Pulse Rate [ From Monitor] Respiratory 17 18 18 Rate Respiratory Rate [Bilateral ] Respiratory Rate [pt denies ] Blood Pressure 128/72 121/69 123/74 O2 Sat by Pulse 93 93 93 Oximetry O2 Sat by Pulse Oximetry [ Assessment] 01/24/20 01/24/20 01/24/20 06:00 06:15 06:30 Temperature Pulse Rate 116 H 117 H 116 H Pulse Rate [ Bilateral] Pulse Rate [ From Monitor] Respiratory 18 20 19 Rate Respiratory Rate [Bilateral ] Respiratory Rate [pt denies ] Blood Pressure 124/70 123/70 126/70 O2 Sat by Pulse 91 92 92 Oximetry O2 Sat by Pulse Oximetry [ Assessment] 01/24/20 01/24/20 01/24/20 06:45 07:00 07:15 Temperature Pulse Rate 111 H 116 H 114 H Pulse Rate [ Bilateral] Pulse Rate [ From Monitor] Respiratory 21 19 15 Rate Respiratory Rate [Bilateral ] Respiratory Rate [pt denies ] Blood Pressure 117/68 119/68 125/72 O2 Sat by Pulse 92 92 93 Oximetry O2 Sat by Pulse Oximetry [ Assessment] 01/24/20 01/24/20 01/24/20 07:30 07:45 08:00 Temperature 100.9 F H Pulse Rate 112 H 115 H 115 H Pulse Rate [ Bilateral] Pulse Rate [ 115 H From Monitor] Respiratory 14 19 17 Rate Respiratory Rate [Bilateral ] Respiratory Rate [pt denies ] Blood Pressure 120/70 126/65 128/67 O2 Sat by Pulse 93 92 96 Oximetry O2 Sat by Pulse Oximetry [ Assessment] 01/24/20 01/24/20 01/24/20 08:15 08:30 08:45 Temperature Pulse Rate 116 H 116 H 115 H Pulse Rate [ Bilateral] Pulse Rate [ From Monitor] Respiratory 19 21 16 Rate Respiratory Rate [Bilateral ] Respiratory Rate [pt denies ] Blood Pressure 124/65 126/70 120/67 O2 Sat by Pulse 93 94 93 Oximetry O2 Sat by Pulse Oximetry [ Assessment] 01/24/20 01/24/20 01/24/20 09:00 09:15 09:30 Temperature Pulse Rate 115 H 114 H 115 H Pulse Rate [ Bilateral] Pulse Rate [ From Monitor] Respiratory 16 15 17 Rate Respiratory Rate [Bilateral ] Respiratory Rate [pt denies ] Blood Pressure 117/66 117/60 113/64 O2 Sat by Pulse 93 93 93 Oximetry O2 Sat by Pulse Oximetry [ Assessment] 01/24/20 01/24/20 01/24/20 09:45 09:49 09:50 Temperature Pulse Rate 116 H 111 H Pulse Rate [ Bilateral] Pulse Rate [ From Monitor] Respiratory 16 20 Rate Respiratory Rate [Bilateral ] Respiratory Rate [pt denies ] Blood Pressure 128/65 121/68 O2 Sat by Pulse 93 98 Oximetry O2 Sat by Pulse Oximetry [ Assessment] 01/24/20 01/24/20 01/24/20 10:00 10:15 10:20 Temperature Pulse Rate 114 H 114 H Pulse Rate [ Bilateral] Pulse Rate [ From Monitor] Respiratory 18 20 Rate Respiratory Rate [Bilateral ] Respiratory 17 Rate [pt denies ] Blood Pressure 128/69 120/67 O2 Sat by Pulse 93 94 Oximetry O2 Sat by Pulse 99 Oximetry [ Assessment] 01/24/20 01/24/20 01/24/20 10:30 10:35 10:45 Temperature Pulse Rate 112 H 112 H Pulse Rate [ 115 H Bilateral] Pulse Rate [ From Monitor] Respiratory 18 17 Rate Respiratory 24 Rate [Bilateral ] Respiratory Rate [pt denies ] Blood Pressure 117/63 121/62 O2 Sat by Pulse 94 94 Oximetry O2 Sat by Pulse Oximetry [ Assessment] 01/24/20 01/24/20 01/24/20 10:49 11:00 11:15 Temperature Pulse Rate 113 H 111 H Pulse Rate [ Bilateral] Pulse Rate [ From Monitor] Respiratory 20 17 17 Rate Respiratory Rate [Bilateral ] Respiratory Rate [pt denies ] Blood Pressure 125/63 119/63 O2 Sat by Pulse 95 95 Oximetry O2 Sat by Pulse Oximetry [ Assessment] 01/24/20 01/24/20 01/24/20 11:31 11:45 12:00 Temperature 99.1 F Pulse Rate 111 H 114 H 118 H Pulse Rate [ Bilateral] Pulse Rate [ 118 H From Monitor] Respiratory 19 18 16 Rate Respiratory Rate [Bilateral ] Respiratory Rate [pt denies ] Blood Pressure 121/68 129/65 122/72 O2 Sat by Pulse 97 96 98 Oximetry O2 Sat by Pulse Oximetry [ Assessment] 01/24/20 01/24/20 01/24/20 12:15 12:30 12:45 Temperature Pulse Rate 117 H 112 H 110 H Pulse Rate [ Bilateral] Pulse Rate [ From Monitor] Respiratory 20 17 19 Rate Respiratory Rate [Bilateral ] Respiratory Rate [pt denies ] Blood Pressure 125/71 121/67 119/73 O2 Sat by Pulse 95 95 97 Oximetry O2 Sat by Pulse Oximetry [ Assessment] 01/24/20 13:00 Temperature Pulse Rate 112 H Pulse Rate [ Bilateral] Pulse Rate [ From Monitor] Respiratory 20 Rate Respiratory Rate [Bilateral ] Respiratory Rate [pt denies ] Blood Pressure 127/69 O2 Sat by Pulse 97 Oximetry O2 Sat by Pulse Oximetry [ Assessment] Constitutional: no acute distress, other (elderly obese AAM with mildly increrased respiratory effort at rest on MVS) Eyes: non-icteric ENT: oropharynx moist, other (s/p trachepstomy) Neck: supple, no lymphadenopathy, no JVD Effort: mildly labored Ascultation: Bilateral: diminished breath sounds, rhonchi Percussion: Bilateral: not dull Cardiovascular: regular rate and rhythm, other (S1,S2) Gastrointestinal: normoactive bowel sounds, soft, non-tender, other (protuberant) Integumentary: rash (stasis dermatyitis) Extremities: no cyanosis, pink and warm, pulses normal, no ischemia or ronnell chiae, edema (trace) Neurologic: normal mental status, non-focal exam, pupils equal and round, CN II- XII normal, motor strength normal and (obeys simple commands) Psychiatric: mood appropriate, affect normal CBC and BMP: 01/24/20 04:34 01/24/20 04:34 ABG, PT/INR, D-dimer: ABG ABG pH 7.364 pH Units (7.350-7.450) 01/23/20 21:10 ABG pCO2 64.9 mm Hg 01/23/20 21:10 ABG pO2 63.2 mm Hg (80.0-90.0) L 01/23/20 21:10 ABG O2 Saturation 89.8 % (95.0-99.0) L 01/23/20 21:10 PT/INR, D-dimer PT 13.3 Sec. (12.2-14.9) 01/18/20 04:45 INR 1.03 (0.87-1.13) 01/18/20 04:45 D-Dimer 534.45 ng/mlDDU (0-234) H 12/18/19 14:45 Abnormal lab findings: Abnormal Labs 12/18/19 12/18/19 12/18/19 12:23 14:45 14:45 WBC RBC Hgb 10.4 L Hct 35.2 L MCV MCH 25 L MCHC 30 L RDW 18.8 H Plt Count Lymph % (Auto) [place] % (Auto) 11.6 H Eos % (Auto) 4.8 H Baso % (Auto) Lymph # [place] # 1.0 H Eos # Baso # Seg Neutrophils % Monocytes % (Manual) Monocytes # (Manual) D-Dimer ABG pH ABG pO2 ABG HCO3 ABG O2 Saturation ABG Base Excess ABG Hemoglobin Oxyhemoglobin Sodium Potassium Chloride Carbon Dioxide BUN Creatinine Glucose POC Glucose 328 H Lactic Acid Calcium Magnesium AST ALT Lactate Dehydrogenase Total Creatine Kinase 40 L C-Reactive Protein Total Protein Albumin Free T4 Urine WBC (Auto) Urine Total Protein Digoxin Salicylates Acetaminophen 12/18/19 12/18/19 12/18/19 14:45 14:45 14:45 WBC RBC Hgb Hct MCV MCH MCHC RDW Plt Count Lymph % (Auto) [place] % (Auto) Eos % (Auto) Baso % (Auto) Lymph # [place] # Eos # Baso # Seg Neutrophils % Monocytes % (Manual) Monocytes # (Manual) D-Dimer 534.45 H ABG pH ABG pO2 ABG HCO3 ABG O2 Saturation ABG Base Excess ABG Hemoglobin Oxyhemoglobin Sodium 156 H Potassium Chloride 112.3 H Carbon Dioxide 31 H BUN 32 H Creatinine Glucose 328 H POC Glucose Lactic Acid Calcium Magnesium AST ALT Lactate Dehydrogenase 235 H Total Creatine Kinase C-Reactive Protein 8.50 H Total Protein Albumin 3.6 L Free T4 Urine WBC (Auto) Urine Total Protein Digoxin 0.3 L Salicylates < 0.3 L Acetaminophen 12/18/19 12/18/19 12/18/19 14:45 14:45 16:00 WBC RBC Hgb Hct MCV MCH MCHC RDW Plt Count Lymph % (Auto) [place] % (Auto) Eos % (Auto) Baso % (Auto) Lymph # [place] # Eos # Baso # Seg Neutrophils % Monocytes % (Manual) Monocytes # (Manual) D-Dimer ABG pH ABG pO2 69.8 L ABG HCO3 31.8 H ABG O2 Saturation ABG Base Excess 5.4 H ABG Hemoglobin 10.0 L Oxyhemoglobin 92.9 L Sodium Potassium Chloride Carbon Dioxide BUN Creatinine Glucose 314 H POC Glucose Lactic Acid Calcium Magnesium AST ALT Lactate Dehydrogenase 236 H Total Creatine Kinase C-Reactive Protein 8.40 H Total Protein Albumin Free T4 Urine WBC (Auto) Urine Total Protein Digoxin Salicylates Acetaminophen < 5.0 L 12/18/19 12/18/19 12/18/19 16:35 18:30 22:56 WBC RBC Hgb Hct MCV MCH MCHC RDW Plt Count Lymph % (Auto) [place] % (Auto) Eos % (Auto) Baso % (Auto) Lymph # [place] # Eos # Baso # Seg Neutrophils % Monocytes % (Manual) Monocytes # (Manual) D-Dimer ABG pH ABG pO2 ABG HCO3 ABG O2 Saturation ABG Base Excess ABG Hemoglobin Oxyhemoglobin Sodium Potassium Chloride Carbon Dioxide BUN Creatinine Glucose POC Glucose 310 H 353 H Lactic Acid 2.50 H* Calcium Magnesium AST ALT Lactate Dehydrogenase Total Creatine Kinase C-Reactive Protein Total Protein Albumin Free T4 Urine WBC (Auto) Urine Total Protein Digoxin Salicylates Acetaminophen 12/19/19 12/19/19 12/19/19 04:13 04:13 06:00 WBC RBC Hgb 10.0 L Hct 34.2 L MCV MCH 25 L MCHC 29 L RDW 19.0 H Plt Count Lymph % (Auto) [place] % (Auto) 10.1 H Eos % (Auto) Baso % (Auto) Lymph # [place] # 1.1 H Eos # Baso # Seg Neutrophils % 71.8 H Monocytes % (Manual) Monocytes # (Manual) D-Dimer ABG pH ABG pO2 186.5 H ABG HCO3 27.8 H ABG O2 Saturation 99.1 H ABG Base Excess ABG Hemoglobin 10.4 L Oxyhemoglobin Sodium 157 H Potassium Chloride 119.1 H Carbon Dioxide BUN 26 H Creatinine Glucose 302 H POC Glucose Lactic Acid Calcium 7.9 L Magnesium AST 85 H ALT 61 H Lactate Dehydrogenase Total Creatine Kinase C-Reactive Protein Total Protein Albumin 3.0 L Free T4 Urine WBC (Auto) Urine Total Protein Digoxin Salicylates Acetaminophen 12/19/19 12/19/19 12/19/19 08:30 11:55 16:50 WBC RBC Hgb Hct MCV MCH MCHC RDW Plt Count Lymph % (Auto) [place] % (Auto) Eos % (Auto) Baso % (Auto) Lymph # [place] # Eos # Baso # Seg Neutrophils % Monocytes % (Manual) Monocytes # (Manual) D-Dimer ABG pH ABG pO2 ABG HCO3 ABG O2 Saturation ABG Base Excess ABG Hemoglobin Oxyhemoglobin Sodium Potassium Chloride Carbon Dioxide BUN Creatinine Glucose POC Glucose 264 H 251 H Lactic Acid Calcium Magnesium AST ALT Lactate Dehydrogenase Total Creatine Kinase C-Reactive Protein Total Protein Albumin Free T4 Urine WBC (Auto) 7.0 H Urine Total Protein Digoxin Salicylates Acetaminophen 12/19/19 12/19/19 12/20/19 17:41 23:42 03:35 WBC RBC Hgb Hct MCV MCH MCHC RDW Plt Count Lymph % (Auto) [place] % (Auto) Eos % (Auto) Baso % (Auto) Lymph # [place] # Eos # Baso # Seg Neutrophils % Monocytes % (Manual) Monocytes # (Manual) D-Dimer ABG pH ABG pO2 ABG HCO3 27.7 H ABG O2 Saturation ABG Base Excess ABG Hemoglobin 11.6 L Oxyhemoglobin 94.9 L Sodium Potassium Chloride Carbon Dioxide BUN Creatinine Glucose POC Glucose 180 H 205 H Lactic Acid Calcium Magnesium AST ALT Lactate Dehydrogenase Total Creatine Kinase C-Reactive Protein Total Protein Albumin Free T4 Urine WBC (Auto) Urine Total Protein Digoxin Salicylates Acetaminophen 12/20/19 12/20/19 12/20/19 04:45 04:45 05:27 WBC RBC Hgb 9.4 L Hct 31.4 L MCV MCH 25 L MCHC 30 L RDW 19.4 H Plt Count Lymph % (Auto) [place] % (Auto) 10.2 H Eos % (Auto) 6.0 H Baso % (Auto) Lymph # 0.9 L [place] # Eos # Baso # Seg Neutrophils % Monocytes % (Manual) Monocytes # (Manual) D-Dimer ABG pH ABG pO2 ABG HCO3 ABG O2 Saturation ABG Base Excess ABG Hemoglobin Oxyhemoglobin Sodium 153 H Potassium Chloride 114.6 H Carbon Dioxide BUN Creatinine Glucose 170 H POC Glucose 188 H Lactic Acid Calcium 7.9 L Magnesium AST ALT Lactate Dehydrogenase Total Creatine Kinase C-Reactive Protein Total Protein Albumin Free T4 Urine WBC (Auto) Urine Total Protein Digoxin Salicylates Acetaminophen 12/20/19 12/20/19 12/21/19 12:26 18:20 00:20 WBC RBC Hgb Hct MCV MCH MCHC RDW Plt Count Lymph % (Auto) [place] % (Auto) Eos % (Auto) Baso % (Auto) Lymph # [place] # Eos # Baso # Seg Neutrophils % Monocytes % (Manual) Monocytes # (Manual) D-Dimer ABG pH ABG pO2 ABG HCO3 ABG O2 Saturation ABG Base Excess ABG Hemoglobin Oxyhemoglobin Sodium Potassium Chloride Carbon Dioxide BUN Creatinine Glucose POC Glucose 200 H 263 H 218 H Lactic Acid Calcium Magnesium AST ALT Lactate Dehydrogenase Total Creatine Kinase C-Reactive Protein Total Protein Albumin Free T4 Urine WBC (Auto) Urine Total Protein Digoxin Salicylates Acetaminophen 12/21/19 12/21/19 12/21/19 04:38 05:26 12:35 WBC RBC Hgb Hct MCV MCH MCHC RDW Plt Count Lymph % (Auto) [place] % (Auto) Eos % (Auto) Baso % (Auto) Lymph # [place] # Eos # Baso # Seg Neutrophils % Monocytes % (Manual) Monocytes # (Manual) D-Dimer ABG pH ABG pO2 ABG HCO3 ABG O2 Saturation ABG Base Excess ABG Hemoglobin Oxyhemoglobin Sodium 149 H Potassium 3.5 L Chloride 110.5 H Carbon Dioxide BUN Creatinine Glucose 158 H POC Glucose 193 H 193 H Lactic Acid Calcium Magnesium AST ALT Lactate Dehydrogenase Total Creatine Kinase C-Reactive Protein Total Protein Albumin Free T4 Urine WBC (Auto) Urine Total Protein Digoxin Salicylates Acetaminophen 12/21/19 12/22/19 12/22/19 18:29 00:03 05:15 WBC RBC Hgb 10.3 L Hct 34.7 L MCV MCH 25 L MCHC 30 L RDW 19.4 H Plt Count Lymph % (Auto) 9.0 L [place] % (Auto) 12.3 H Eos % (Auto) 5.0 H Baso % (Auto) Lymph # 0.5 L [place] # Eos # Baso # Seg Neutrophils % 73.2 H Monocytes % (Manual) Monocytes # (Manual) D-Dimer ABG pH ABG pO2 ABG HCO3 ABG O2 Saturation ABG Base Excess ABG Hemoglobin Oxyhemoglobin Sodium Potassium Chloride Carbon Dioxide BUN Creatinine Glucose POC Glucose 186 H 143 H Lactic Acid Calcium Magnesium AST ALT Lactate Dehydrogenase Total Creatine Kinase C-Reactive Protein Total Protein Albumin Free T4 Urine WBC (Auto) Urine Total Protein Digoxin Salicylates Acetaminophen 12/22/19 12/22/19 12/22/19 05:15 06:02 12:13 WBC RBC Hgb Hct MCV MCH MCHC RDW Plt Count Lymph % (Auto) [place] % (Auto) Eos % (Auto) Baso % (Auto) Lymph # [place] # Eos # Baso # Seg Neutrophils % Monocytes % (Manual) Monocytes # (Manual) D-Dimer ABG pH ABG pO2 ABG HCO3 ABG O2 Saturation ABG Base Excess ABG Hemoglobin Oxyhemoglobin Sodium 152 H Potassium Chloride 113.5 H Carbon Dioxide BUN Creatinine Glucose 126 H POC Glucose 144 H 159 H Lactic Acid Calcium Magnesium AST ALT Lactate Dehydrogenase Total Creatine Kinase C-Reactive Protein Total Protein Albumin Free T4 Urine WBC (Auto) Urine Total Protein Digoxin Salicylates Acetaminophen 06/12/22/19 12/23/19 18:03 23:50 05:27 WBC RBC Hgb Hct MCV MCH MCHC RDW Plt Count Lymph % (Auto) [place] % (Auto) Eos % (Auto) Baso % (Auto) Lymph # [place] # Eos # Baso # Seg Neutrophils % Monocytes % (Manual) Monocytes # (Manual) D-Dimer ABG pH ABG pO2 ABG HCO3 ABG O2 Saturation ABG Base Excess ABG Hemoglobin Oxyhemoglobin Sodium Potassium Chloride Carbon Dioxide BUN Creatinine Glucose POC Glucose 140 H 227 H 185 H Lactic Acid Calcium Magnesium AST ALT Lactate Dehydrogenase Total Creatine Kinase C-Reactive Protein Total Protein Albumin Free T4 Urine WBC (Auto) Urine Total Protein Digoxin Salicylates Acetaminophen 12/23/19 12/23/19 12/23/19 12:13 16:05 16:40 WBC RBC Hgb Hct MCV MCH MCHC RDW Plt Count Lymph % (Auto) [place] % (Auto) Eos % (Auto) Baso % (Auto) Lymph # [place] # Eos # Baso # Seg Neutrophils % Monocytes % (Manual) Monocytes # (Manual) D-Dimer ABG pH 7.259 L ABG pO2 76.2 L ABG HCO3 30.6 H ABG O2 Saturation 94.6 L ABG Base Excess ABG Hemoglobin 11.5 L Oxyhemoglobin 92.2 L Sodium 163 H* D Potassium 3.4 L Chloride 120.1 H Carbon Dioxide BUN Creatinine Glucose 162 H POC Glucose 132 H Lactic Acid Calcium Magnesium AST ALT Lactate Dehydrogenase Total Creatine Kinase C-Reactive Protein Total Protein Albumin Free T4 Urine WBC (Auto) Urine Total Protein Digoxin Salicylates Acetaminophen 12/23/19 12/24/19 12/24/19 17:53 00:48 04:20 WBC RBC Hgb Hct MCV MCH MCHC RDW Plt Count Lymph % (Auto) [place] % (Auto) Eos % (Auto) Baso % (Auto) Lymph # [place] # Eos # Baso # Seg Neutrophils % Monocytes % (Manual) Monocytes # (Manual) D-Dimer ABG pH ABG pO2 ABG HCO3 30.4 H ABG O2 Saturation ABG Base Excess 3.9 H ABG Hemoglobin 10.3 L Oxyhemoglobin 94.4 L Sodium Potassium Chloride Carbon Dioxide BUN Creatinine Glucose POC Glucose 180 H 174 H Lactic Acid Calcium Magnesium AST ALT Lactate Dehydrogenase Total Creatine Kinase C-Reactive Protein Total Protein Albumin Free T4 Urine WBC (Auto) Urine Total Protein Digoxin Salicylates Acetaminophen 12/24/19 12/24/19 12/24/19 04:53 04:53 11:50 WBC RBC Hgb 9.7 L Hct 33.2 L MCV MCH 25 L MCHC 29 L RDW 20.1 H Plt Count Lymph % (Auto) [place] % (Auto) Eos % (Auto) Baso % (Auto) Lymph # [place] # Eos # Baso # Seg Neutrophils % Monocytes % (Manual) 15.0 H Monocytes # (Manual) 0.9 H D-Dimer ABG pH ABG pO2 ABG HCO3 ABG O2 Saturation ABG Base Excess ABG Hemoglobin Oxyhemoglobin Sodium 163 H* Potassium 3.2 L Chloride 122.6 H Carbon Dioxide BUN Creatinine Glucose 168 H POC Glucose 190 H Lactic Acid Calcium Magnesium AST ALT Lactate Dehydrogenase Total Creatine Kinase C-Reactive Protein Total Protein Albumin Free T4 Urine WBC (Auto) Urine Total Protein Digoxin Salicylates Acetaminophen 12/24/19 12/24/19 12/24/19 15:00 16:28 21:15 WBC RBC Hgb Hct MCV MCH MCHC RDW Plt Count Lymph % (Auto) [place] % (Auto) Eos % (Auto) Baso % (Auto) Lymph # [place] # Eos # Baso # Seg Neutrophils % Monocytes % (Manual) Monocytes # (Manual) D-Dimer ABG pH ABG pO2 ABG HCO3 ABG O2 Saturation ABG Base Excess ABG Hemoglobin Oxyhemoglobin Sodium 165 H* D 163 H* Potassium Chloride Carbon Dioxide BUN Creatinine Glucose POC Glucose 160 H Lactic Acid Calcium Magnesium AST ALT Lactate Dehydrogenase Total Creatine Kinase C-Reactive Protein Total Protein Albumin Free T4 Urine WBC (Auto) Urine Total Protein Digoxin Salicylates Acetaminophen 12/25/19 12/25/19 12/25/19 00:31 05:38 05:46 WBC RBC Hgb 9.7 L Hct 32.5 L MCV MCH 25 L MCHC 30 L RDW 19.4 H Plt Count Lymph % (Auto) [place] % (Auto) Eos % (Auto) Baso % (Auto) Lymph # [place] # Eos # Baso # Seg Neutrophils % Monocytes % (Manual) Monocytes # (Manual) D-Dimer ABG pH ABG pO2 ABG HCO3 ABG O2 Saturation ABG Base Excess ABG Hemoglobin Oxyhemoglobin Sodium Potassium Chloride Carbon Dioxide BUN Creatinine Glucose POC Glucose 182 H 194 H Lactic Acid Calcium Magnesium AST ALT Lactate Dehydrogenase Total Creatine Kinase C-Reactive Protein Total Protein Albumin Free T4 Urine WBC (Auto) Urine Total Protein Digoxin Salicylates Acetaminophen 12/25/19 12/25/19 12/25/19 05:46 11:35 11:38 WBC RBC Hgb Hct MCV MCH MCHC RDW Plt Count Lymph % (Auto) [place] % (Auto) Eos % (Auto) Baso % (Auto) Lymph # [place] # Eos # Baso # Seg Neutrophils % Monocytes % (Manual) Monocytes # (Manual) D-Dimer ABG pH 7.330 L ABG pO2 65.7 L ABG HCO3 32.6 H ABG O2 Saturation 92.5 L ABG Base Excess 5.3 H ABG Hemoglobin 10.4 L Oxyhemoglobin 90.0 L Sodium 166 H* Potassium 2.9 L* Chloride 124.5 H Carbon Dioxide BUN Creatinine Glucose 190 H POC Glucose 192 H Lactic Acid Calcium Magnesium AST ALT Lactate Dehydrogenase Total Creatine Kinase C-Reactive Protein Total Protein Albumin Free T4 Urine WBC (Auto) Urine Total Protein Digoxin Salicylates Acetaminophen 12/25/19 12/25/19 12/25/19 13:01 16:45 17:20 WBC RBC Hgb Hct MCV MCH MCHC RDW Plt Count Lymph % (Auto) [place] % (Auto) Eos % (Auto) Baso % (Auto) Lymph # [place] # Eos # Baso # Seg Neutrophils % Monocytes % (Manual) Monocytes # (Manual) D-Dimer ABG pH 7.296 L ABG pO2 101.5 H ABG HCO3 33.2 H ABG O2 Saturation ABG Base Excess 5.3 H ABG Hemoglobin 9.6 L Oxyhemoglobin 94.6 L Sodium 174 H* Potassium Chloride Carbon Dioxide BUN Creatinine Glucose POC Glucose Lactic Acid Calcium Magnesium AST ALT Lactate Dehydrogenase Total Creatine Kinase C-Reactive Protein Total Protein Albumin Free T4 Urine WBC (Auto) Urine Total Protein < 4 L Digoxin Salicylates Acetaminophen 12/25/19 12/25/19 12/26/19 17:48 18:50 00:43 WBC RBC Hgb Hct MCV MCH MCHC RDW Plt Count Lymph % (Auto) [place] % (Auto) Eos % (Auto) Baso % (Auto) Lymph # [place] # Eos # Baso # Seg Neutrophils % Monocytes % (Manual) Monocytes # (Manual) D-Dimer ABG pH ABG pO2 ABG HCO3 ABG O2 Saturation ABG Base Excess ABG Hemoglobin Oxyhemoglobin Sodium 166 H* 164 H* Potassium Chloride 127.3 H Carbon Dioxide BUN Creatinine Glucose 220 H POC Glucose 252 H Lactic Acid Calcium Magnesium AST ALT Lactate Dehydrogenase Total Creatine Kinase C-Reactive Protein Total Protein Albumin Free T4 Urine WBC (Auto) Urine Total Protein Digoxin Salicylates Acetaminophen 12/26/19 12/26/19 12/26/19 05:31 08:07 08:07 WBC 4.3 L RBC Hgb 9.6 L Hct 32.1 L MCV MCH 26 L MCHC 30 L RDW 20.5 H Plt Count Lymph % (Auto) [place] % (Auto) Eos % (Auto) Baso % (Auto) Lymph # [place] # Eos # Baso # Seg Neutrophils % Monocytes % (Manual) Monocytes # (Manual) D-Dimer ABG pH ABG pO2 ABG HCO3 ABG O2 Saturation ABG Base Excess ABG Hemoglobin Oxyhemoglobin Sodium 162 H* Potassium Chloride 122.1 H Carbon Dioxide BUN Creatinine Glucose 247 H POC Glucose 187 H Lactic Acid Calcium Magnesium AST ALT Lactate Dehydrogenase Total Creatine Kinase C-Reactive Protein Total Protein Albumin Free T4 Urine WBC (Auto) Urine Total Protein Digoxin Salicylates Acetaminophen 12/26/19 12/26/19 12/26/19 08:07 12:20 16:25 WBC RBC Hgb Hct MCV MCH MCHC RDW Plt Count Lymph % (Auto) [place] % (Auto) Eos % (Auto) Baso % (Auto) Lymph # [place] # Eos # Baso # Seg Neutrophils % Monocytes % (Manual) Monocytes # (Manual) D-Dimer ABG pH 7.290 L ABG pO2 73.2 L ABG HCO3 33.2 H ABG O2 Saturation 94.9 L ABG Base Excess 5.2 H ABG Hemoglobin 10.0 L Oxyhemoglobin 92.5 L Sodium 159 H Potassium Chloride Carbon Dioxide BUN Creatinine Glucose POC Glucose 234 H Lactic Acid Calcium Magnesium AST ALT Lactate Dehydrogenase Total Creatine Kinase C-Reactive Protein Total Protein Albumin Free T4 Urine WBC (Auto) Urine Total Protein Digoxin Salicylates Acetaminophen 12/26/19 12/26/19 12/26/19 17:33 22:35 23:30 WBC RBC Hgb Hct MCV MCH MCHC RDW Plt Count Lymph % (Auto) [place] % (Auto) Eos % (Auto) Baso % (Auto) Lymph # [place] # Eos # Baso # Seg Neutrophils % Monocytes % (Manual) Monocytes # (Manual) D-Dimer ABG pH ABG pO2 ABG HCO3 ABG O2 Saturation ABG Base Excess ABG Hemoglobin Oxyhemoglobin Sodium Potassium Chloride Carbon Dioxide BUN Creatinine Glucose POC Glucose 244 H 208 H 287 H Lactic Acid Calcium Magnesium AST ALT Lactate Dehydrogenase Total Creatine Kinase C-Reactive Protein Total Protein Albumin Free T4 Urine WBC (Auto) Urine Total Protein Digoxin Salicylates Acetaminophen 12/27/19 12/27/19 12/27/19 03:48 03:48 03:48 WBC RBC Hgb 10.1 L Hct 35.4 L MCV MCH 25 L MCHC 29 L RDW 20.1 H Plt Count Lymph % (Auto) [place] % (Auto) Eos % (Auto) Baso % (Auto) Lymph # [place] # Eos # Baso # Seg Neutrophils % Monocytes % (Manual) Monocytes # (Manual) D-Dimer ABG pH ABG pO2 ABG HCO3 ABG O2 Saturation ABG Base Excess ABG Hemoglobin Oxyhemoglobin Sodium 160 H Potassium Chloride 118.8 H Carbon Dioxide 33 H BUN Creatinine Glucose 217 H POC Glucose Lactic Acid Calcium Magnesium 2.70 H AST ALT Lactate Dehydrogenase Total Creatine Kinase C-Reactive Protein Total Protein Albumin Free T4 Urine WBC (Auto) Urine Total Protein Digoxin Salicylates Acetaminophen 12/27/19 12/27/19 12/27/19 05:50 11:58 16:05 WBC RBC Hgb Hct MCV MCH MCHC RDW Plt Count Lymph % (Auto) [place] % (Auto) Eos % (Auto) Baso % (Auto) Lymph # [place] # Eos # Baso # Seg Neutrophils % Monocytes % (Manual) Monocytes # (Manual) D-Dimer ABG pH 7.180 L* ABG pO2 73.6 L ABG HCO3 34.8 H ABG O2 Saturation 92.7 L ABG Base Excess 3.8 H ABG Hemoglobin 12.0 L Oxyhemoglobin 90.2 L Sodium Potassium Chloride Carbon Dioxide BUN Creatinine Glucose POC Glucose 224 H 218 H Lactic Acid Calcium Magnesium AST ALT Lactate Dehydrogenase Total Creatine Kinase C-Reactive Protein Total Protein Albumin Free T4 Urine WBC (Auto) Urine Total Protein Digoxin Salicylates Acetaminophen 12/27/19 12/27/19 12/27/19 18:05 19:50 21:53 WBC RBC Hgb Hct MCV MCH MCHC RDW Plt Count Lymph % (Auto) [place] % (Auto) Eos % (Auto) Baso % (Auto) Lymph # [place] # Eos # Baso # Seg Neutrophils % Monocytes % (Manual) Monocytes # (Manual) D-Dimer ABG pH 7.328 L ABG pO2 49.9 L ABG HCO3 33.3 H ABG O2 Saturation 87.1 L ABG Base Excess 5.7 H ABG Hemoglobin 11.2 L Oxyhemoglobin 84.8 L Sodium Potassium Chloride Carbon Dioxide BUN Creatinine Glucose POC Glucose 214 H 178 H Lactic Acid Calcium Magnesium AST ALT Lactate Dehydrogenase Total Creatine Kinase C-Reactive Protein Total Protein Albumin Free T4 Urine WBC (Auto) Urine Total Protein Digoxin Salicylates Acetaminophen 12/28/19 12/28/19 12/28/19 00:42 04:37 04:37 WBC RBC Hgb 9.8 L Hct 33.5 L MCV MCH 25 L MCHC 29 L RDW 21.1 H Plt Count Lymph % (Auto) [place] % (Auto) Eos % (Auto) Baso % (Auto) Lymph # [place] # Eos # Baso # Seg Neutrophils % Monocytes % (Manual) Monocytes # (Manual) D-Dimer ABG pH ABG pO2 ABG HCO3 ABG O2 Saturation ABG Base Excess ABG Hemoglobin Oxyhemoglobin Sodium 157 H Potassium 3.4 L Chloride 117.5 H Carbon Dioxide BUN Creatinine Glucose 193 H POC Glucose 157 H Lactic Acid Calcium Magnesium AST ALT Lactate Dehydrogenase Total Creatine Kinase C-Reactive Protein Total Protein Albumin Free T4 Urine WBC (Auto) Urine Total Protein Digoxin Salicylates Acetaminophen 12/28/19 12/28/19 12/28/19 04:52 05:19 12:05 WBC RBC Hgb Hct MCV MCH MCHC RDW Plt Count Lymph % (Auto) [place] % (Auto) Eos % (Auto) Baso % (Auto) Lymph # [place] # Eos # Baso # Seg Neutrophils % Monocytes % (Manual) Monocytes # (Manual) D-Dimer ABG pH ABG pO2 51.7 L ABG HCO3 28.7 H ABG O2 Saturation 89.9 L ABG Base Excess 4.1 H ABG Hemoglobin 9.7 L Oxyhemoglobin 87.7 L Sodium Potassium Chloride Carbon Dioxide BUN Creatinine Glucose POC Glucose 202 H 248 H Lactic Acid Calcium Magnesium AST ALT Lactate Dehydrogenase Total Creatine Kinase C-Reactive Protein Total Protein Albumin Free T4 Urine WBC (Auto) Urine Total Protein Digoxin Salicylates Acetaminophen 12/28/19 12/28/19 12/28/19 18:11 21:15 23:22 WBC RBC Hgb Hct MCV MCH MCHC RDW Plt Count Lymph % (Auto) [place] % (Auto) Eos % (Auto) Baso % (Auto) Lymph # [place] # Eos # Baso # Seg Neutrophils % Monocytes % (Manual) Monocytes # (Manual) D-Dimer ABG pH ABG pO2 ABG HCO3 ABG O2 Saturation ABG Base Excess ABG Hemoglobin Oxyhemoglobin Sodium Potassium Chloride Carbon Dioxide BUN Creatinine Glucose POC Glucose 226 H 217 H 227 H Lactic Acid Calcium Magnesium AST ALT Lactate Dehydrogenase Total Creatine Kinase C-Reactive Protein Total Protein Albumin Free T4 Urine WBC (Auto) Urine Total Protein Digoxin Salicylates Acetaminophen 12/29/19 12/29/19 12/29/19 04:09 04:59 04:59 WBC 11.1 H RBC Hgb 9.3 L Hct 31.1 L MCV 81 L MCH 24 L MCHC 30 L RDW 19.9 H Plt Count Lymph % (Auto) [place] % (Auto) Eos % (Auto) Baso % (Auto) Lymph # [place] # Eos # Baso # Seg Neutrophils % Monocytes % (Manual) Monocytes # (Manual) D-Dimer ABG pH 7.473 H ABG pO2 126.1 H ABG HCO3 29.2 H ABG O2 Saturation ABG Base Excess 5.1 H ABG Hemoglobin 8.4 L Oxyhemoglobin Sodium 157 H Potassium 3.2 L Chloride 118.2 H Carbon Dioxide BUN Creatinine 1.7 H Glucose 229 H POC Glucose Lactic Acid Calcium Magnesium AST ALT Lactate Dehydrogenase Total Creatine Kinase C-Reactive Protein Total Protein Albumin Free T4 Urine WBC (Auto) Urine Total Protein Digoxin Salicylates Acetaminophen 12/29/19 12/29/19 12/29/19 05:15 12:13 17:59 WBC RBC Hgb Hct MCV MCH MCHC RDW Plt Count Lymph % (Auto) [place] % (Auto) Eos % (Auto) Baso % (Auto) Lymph # [place] # Eos # Baso # Seg Neutrophils % Monocytes % (Manual) Monocytes # (Manual) D-Dimer ABG pH ABG pO2 ABG HCO3 ABG O2 Saturation ABG Base Excess ABG Hemoglobin Oxyhemoglobin Sodium Potassium Chloride Carbon Dioxide BUN Creatinine Glucose POC Glucose 221 H 392 H 365 H Lactic Acid Calcium Magnesium AST ALT Lactate Dehydrogenase Total Creatine Kinase C-Reactive Protein Total Protein Albumin Free T4 Urine WBC (Auto) Urine Total Protein Digoxin Salicylates Acetaminophen 12/29/19 12/29/19 12/30/19 20:25 23:38 04:45 WBC RBC Hgb Hct MCV MCH MCHC RDW Plt Count Lymph % (Auto) [place] % (Auto) Eos % (Auto) Baso % (Auto) Lymph # [place] # Eos # Baso # Seg Neutrophils % Monocytes % (Manual) Monocytes # (Manual) D-Dimer ABG pH 7.261 L 7.343 L ABG pO2 60.3 L 54.3 L ABG HCO3 32.1 H 30.9 H ABG O2 Saturation 87.6 L 88.3 L ABG Base Excess 3.7 H 4.0 H ABG Hemoglobin 9.7 L 11.6 L Oxyhemoglobin 85.2 L 86.0 L Sodium Potassium Chloride Carbon Dioxide BUN Creatinine Glucose POC Glucose 402 H Lactic Acid Calcium Magnesium AST ALT Lactate Dehydrogenase Total Creatine Kinase C-Reactive Protein Total Protein Albumin Free T4 Urine WBC (Auto) Urine Total Protein Digoxin Salicylates Acetaminophen 12/30/19 12/30/19 12/30/19 05:06 05:06 05:06 WBC 11.7 H RBC Hgb 9.4 L Hct 32.4 L MCV 83 L MCH 24 L MCHC 29 L RDW 20.2 H Plt Count Lymph % (Auto) [place] % (Auto) Eos % (Auto) Baso % (Auto) Lymph # [place] # Eos # Baso # Seg Neutrophils % Monocytes % (Manual) Monocytes # (Manual) D-Dimer ABG pH ABG pO2 ABG HCO3 ABG O2 Saturation ABG Base Excess ABG Hemoglobin Oxyhemoglobin Sodium 159 H Potassium 3.2 L Chloride 120.1 H Carbon Dioxide 31 H BUN Creatinine 1.9 H Glucose 404 H POC Glucose Lactic Acid Calcium Magnesium 2.60 H AST ALT Lactate Dehydrogenase Total Creatine Kinase C-Reactive Protein Total Protein Albumin Free T4 Urine WBC (Auto) Urine Total Protein Digoxin Salicylates Acetaminophen 12/30/19 12/30/19 12/30/19 06:26 12:29 13:44 WBC RBC Hgb Hct MCV MCH MCHC RDW Plt Count Lymph % (Auto) [place] % (Auto) Eos % (Auto) Baso % (Auto) Lymph # [place] # Eos # Baso # Seg Neutrophils % Monocytes % (Manual) Monocytes # (Manual) D-Dimer ABG pH ABG pO2 ABG HCO3 ABG O2 Saturation ABG Base Excess ABG Hemoglobin Oxyhemoglobin Sodium Potassium Chloride Carbon Dioxide BUN Creatinine Glucose POC Glucose 399 H 469 H > 500 H Lactic Acid Calcium Magnesium AST ALT Lactate Dehydrogenase Total Creatine Kinase C-Reactive Protein Total Protein Albumin Free T4 Urine WBC (Auto) Urine Total Protein Digoxin Salicylates Acetaminophen 12/30/19 12/30/19 12/30/19 13:51 16:32 18:05 WBC RBC Hgb Hct MCV MCH MCHC RDW Plt Count Lymph % (Auto) [place] % (Auto) Eos % (Auto) Baso % (Auto) Lymph # [place] # Eos # Baso # Seg Neutrophils % Monocytes % (Manual) Monocytes # (Manual) D-Dimer ABG pH ABG pO2 ABG HCO3 ABG O2 Saturation ABG Base Excess ABG Hemoglobin Oxyhemoglobin Sodium Potassium Chloride Carbon Dioxide BUN Creatinine Glucose POC Glucose > 500 H 445 H 429 H Lactic Acid Calcium Magnesium AST ALT Lactate Dehydrogenase Total Creatine Kinase C-Reactive Protein Total Protein Albumin Free T4 Urine WBC (Auto) Urine Total Protein Digoxin Salicylates Acetaminophen 12/30/19 12/30/19 12/31/19 21:42 Unknown 00:00 WBC RBC Hgb Hct MCV MCH MCHC RDW Plt Count Lymph % (Auto) [place] % (Auto) Eos % (Auto) Baso % (Auto) Lymph # [place] # Eos # Baso # Seg Neutrophils % Monocytes % (Manual) Monocytes # (Manual) D-Dimer ABG pH ABG pO2 ABG HCO3 ABG O2 Saturation ABG Base Excess ABG Hemoglobin Oxyhemoglobin Sodium Potassium Chloride Carbon Dioxide BUN Creatinine Glucose 498 H POC Glucose 371 H 452 H Lactic Acid Calcium Magnesium AST ALT Lactate Dehydrogenase Total Creatine Kinase C-Reactive Protein Total Protein Albumin Free T4 Urine WBC (Auto) Urine Total Protein Digoxin Salicylates Acetaminophen 12/31/19 12/31/19 12/31/19 04:31 05:42 08:01 WBC RBC Hgb Hct MCV MCH MCHC RDW Plt Count Lymph % (Auto) [place] % (Auto) Eos % (Auto) Baso % (Auto) Lymph # [place] # Eos # Baso # Seg Neutrophils % Monocytes % (Manual) Monocytes # (Manual) D-Dimer ABG pH 7.251 L ABG pO2 62.4 L ABG HCO3 31.1 H ABG O2 Saturation 88.7 L ABG Base Excess ABG Hemoglobin 8.7 L Oxyhemoglobin 86.4 L Sodium Potassium Chloride Carbon Dioxide BUN Creatinine Glucose POC Glucose 443 H 443 H Lactic Acid Calcium Magnesium AST ALT Lactate Dehydrogenase Total Creatine Kinase C-Reactive Protein Total Protein Albumin Free T4 Urine WBC (Auto) Urine Total Protein Digoxin Salicylates Acetaminophen 12/31/19 12/31/19 12/31/19 09:08 10:00 11:50 WBC RBC Hgb Hct MCV MCH MCHC RDW Plt Count Lymph % (Auto) [place] % (Auto) Eos % (Auto) Baso % (Auto) Lymph # [place] # Eos # Baso # Seg Neutrophils % Monocytes % (Manual) Monocytes # (Manual) D-Dimer ABG pH 7.325 L ABG pO2 97.2 H ABG HCO3 30.1 H ABG O2 Saturation ABG Base Excess 3.4 H ABG Hemoglobin 8.3 L Oxyhemoglobin 94.7 L Sodium 151 H D Potassium 3.2 L Chloride 113.0 H Carbon Dioxide BUN 23 H Creatinine 1.8 H Glucose 373 H POC Glucose 465 H Lactic Acid Calcium Magnesium AST ALT Lactate Dehydrogenase Total Creatine Kinase C-Reactive Protein Total Protein Albumin Free T4 Urine WBC (Auto) Urine Total Protein Digoxin Salicylates Acetaminophen 12/31/19 12/31/19 12/31/19 12:25 13:33 18:30 WBC RBC Hgb Hct MCV MCH MCHC RDW Plt Count Lymph % (Auto) [place] % (Auto) Eos % (Auto) Baso % (Auto) Lymph # [place] # Eos # Baso # Seg Neutrophils % Monocytes % (Manual) Monocytes # (Manual) D-Dimer ABG pH ABG pO2 ABG HCO3 ABG O2 Saturation ABG Base Excess ABG Hemoglobin Oxyhemoglobin Sodium Potassium Chloride Carbon Dioxide BUN Creatinine Glucose POC Glucose 379 H 311 H 349 H Lactic Acid Calcium Magnesium AST ALT Lactate Dehydrogenase Total Creatine Kinase C-Reactive Protein Total Protein Albumin Free T4 Urine WBC (Auto) Urine Total Protein Digoxin Salicylates Acetaminophen 12/31/19 12/31/19 01/01/20 22:29 23:30 02:58 WBC RBC Hgb Hct MCV MCH MCHC RDW Plt Count Lymph % (Auto) [place] % (Auto) Eos % (Auto) Baso % (Auto) Lymph # [place] # Eos # Baso # Seg Neutrophils % Monocytes % (Manual) Monocytes # (Manual) D-Dimer ABG pH ABG pO2 ABG HCO3 ABG O2 Saturation ABG Base Excess ABG Hemoglobin Oxyhemoglobin Sodium Potassium Chloride Carbon Dioxide BUN Creatinine Glucose POC Glucose 256 H 266 H 248 H Lactic Acid Calcium Magnesium AST ALT Lactate Dehydrogenase Total Creatine Kinase C-Reactive Protein Total Protein Albumin Free T4 Urine WBC (Auto) Urine Total Protein Digoxin Salicylates Acetaminophen 01/01/20 01/01/20 01/01/20 04:19 06:56 10:52 WBC RBC Hgb Hct MCV MCH MCHC RDW Plt Count Lymph % (Auto) [place] % (Auto) Eos % (Auto) Baso % (Auto) Lymph # [place] # Eos # Baso # Seg Neutrophils % Monocytes % (Manual) Monocytes # (Manual) D-Dimer ABG pH ABG pO2 90.7 H ABG HCO3 29.1 H ABG O2 Saturation ABG Base Excess 3.8 H ABG Hemoglobin 8.1 L Oxyhemoglobin 94.5 L Sodium Potassium Chloride Carbon Dioxide BUN Creatinine Glucose POC Glucose 303 H 244 H Lactic Acid Calcium Magnesium AST ALT Lactate Dehydrogenase Total Creatine Kinase C-Reactive Protein Total Protein Albumin Free T4 Urine WBC (Auto) Urine Total Protein Digoxin Salicylates Acetaminophen 01/01/20 01/01/20 01/01/20 13:39 14:49 18:42 WBC RBC Hgb Hct MCV MCH MCHC RDW Plt Count Lymph % (Auto) [place] % (Auto) Eos % (Auto) Baso % (Auto) Lymph # [place] # Eos # Baso # Seg Neutrophils % Monocytes % (Manual) Monocytes # (Manual) D-Dimer ABG pH ABG pO2 ABG HCO3 ABG O2 Saturation ABG Base Excess ABG Hemoglobin Oxyhemoglobin Sodium 147 H Potassium Chloride 107.1 H Carbon Dioxide BUN 28 H Creatinine Glucose 207 H POC Glucose 263 H 188 H Lactic Acid Calcium Magnesium AST ALT Lactate Dehydrogenase Total Creatine Kinase C-Reactive Protein Total Protein Albumin Free T4 Urine WBC (Auto) Urine Total Protein Digoxin Salicylates Acetaminophen 01/02/20 01/02/20 01/02/20 02:22 03:58 05:00 WBC RBC 3.31 L Hgb 8.0 L Hct 26.9 L MCV 81 L MCH 24 L MCHC 30 L RDW 19.4 H Plt Count Lymph % (Auto) [place] % (Auto) 9.4 H Eos % (Auto) 11.2 H Baso % (Auto) Lymph # [place] # Eos # 0.8 H Baso # Seg Neutrophils % Monocytes % (Manual) Monocytes # (Manual) D-Dimer ABG pH ABG pO2 63.0 L ABG HCO3 31.6 H ABG O2 Saturation 91.8 L ABG Base Excess 5.5 H ABG Hemoglobin 8.6 L Oxyhemoglobin 89.6 L Sodium Potassium Chloride Carbon Dioxide BUN Creatinine Glucose POC Glucose 196 H Lactic Acid Calcium Magnesium AST ALT Lactate Dehydrogenase Total Creatine Kinase C-Reactive Protein Total Protein Albumin Free T4 Urine WBC (Auto) Urine Total Protein Digoxin Salicylates Acetaminophen 01/02/20 01/02/20 01/02/20 05:40 10:26 13:57 WBC RBC Hgb Hct MCV MCH MCHC RDW Plt Count Lymph % (Auto) [place] % (Auto) Eos % (Auto) Baso % (Auto) Lymph # [place] # Eos # Baso # Seg Neutrophils % Monocytes % (Manual) Monocytes # (Manual) D-Dimer ABG pH ABG pO2 ABG HCO3 ABG O2 Saturation ABG Base Excess ABG Hemoglobin Oxyhemoglobin Sodium Potassium Chloride Carbon Dioxide BUN Creatinine Glucose POC Glucose 189 H 157 H 178 H Lactic Acid Calcium Magnesium AST ALT Lactate Dehydrogenase Total Creatine Kinase C-Reactive Protein Total Protein Albumin Free T4 Urine WBC (Auto) Urine Total Protein Digoxin Salicylates Acetaminophen 01/02/20 01/03/20 01/03/20 21:27 03:12 05:26 WBC RBC Hgb Hct MCV MCH MCHC RDW Plt Count Lymph % (Auto) [place] % (Auto) Eos % (Auto) Baso % (Auto) Lymph # [place] # Eos # Baso # Seg Neutrophils % Monocytes % (Manual) Monocytes # (Manual) D-Dimer ABG pH 7.473 H ABG pO2 109.6 H ABG HCO3 30.4 H ABG O2 Saturation ABG Base Excess 6.2 H ABG Hemoglobin 9.9 L Oxyhemoglobin Sodium Potassium Chloride Carbon Dioxide BUN Creatinine Glucose POC Glucose 131 H 133 H Lactic Acid Calcium Magnesium AST ALT Lactate Dehydrogenase Total Creatine Kinase C-Reactive Protein Total Protein Albumin Free T4 Urine WBC (Auto) Urine Total Protein Digoxin Salicylates Acetaminophen 01/03/20 01/03/20 01/03/20 05:40 05:40 15:01 WBC RBC 3.45 L Hgb 8.3 L Hct 27.3 L MCV 79 L MCH 24 L MCHC 30 L RDW 19.3 H Plt Count Lymph % (Auto) [place] % (Auto) Eos % (Auto) Baso % (Auto) Lymph # [place] # Eos # Baso # Seg Neutrophils % Monocytes % (Manual) Monocytes # (Manual) D-Dimer ABG pH ABG pO2 ABG HCO3 ABG O2 Saturation ABG Base Excess ABG Hemoglobin Oxyhemoglobin Sodium 151 H Potassium Chloride 111.8 H Carbon Dioxide 31 H BUN 37 H Creatinine 1.8 H Glucose 187 H POC Glucose 164 H Lactic Acid Calcium Magnesium AST ALT Lactate Dehydrogenase Total Creatine Kinase C-Reactive Protein Total Protein Albumin Free T4 Urine WBC (Auto) Urine Total Protein Digoxin Salicylates Acetaminophen 01/03/20 01/03/20 01/04/20 18:15 22:45 02:11 WBC RBC Hgb Hct MCV MCH MCHC RDW Plt Count Lymph % (Auto) [place] % (Auto) Eos % (Auto) Baso % (Auto) Lymph # [place] # Eos # Baso # Seg Neutrophils % Monocytes % (Manual) Monocytes # (Manual) D-Dimer ABG pH ABG pO2 ABG HCO3 ABG O2 Saturation ABG Base Excess ABG Hemoglobin Oxyhemoglobin Sodium Potassium Chloride Carbon Dioxide BUN Creatinine Glucose POC Glucose 184 H 176 H 206 H Lactic Acid Calcium Magnesium AST ALT Lactate Dehydrogenase Total Creatine Kinase C-Reactive Protein Total Protein Albumin Free T4 Urine WBC (Auto) Urine Total Protein Digoxin Salicylates Acetaminophen 01/04/20 01/04/20 01/04/20 03:16 05:15 10:53 WBC RBC Hgb Hct MCV MCH MCHC RDW Plt Count Lymph % (Auto) [place] % (Auto) Eos % (Auto) Baso % (Auto) Lymph # [place] # Eos # Baso # Seg Neutrophils % Monocytes % (Manual) Monocytes # (Manual) D-Dimer ABG pH 7.282 L ABG pO2 73.2 L ABG HCO3 ABG O2 Saturation 94.5 L ABG Base Excess -6.4 L ABG Hemoglobin 10.9 L Oxyhemoglobin 92.1 L Sodium Potassium Chloride Carbon Dioxide BUN Creatinine Glucose POC Glucose 139 H 224 H Lactic Acid Calcium Magnesium AST ALT Lactate Dehydrogenase Total Creatine Kinase C-Reactive Protein Total Protein Albumin Free T4 Urine WBC (Auto) Urine Total Protein Digoxin Salicylates Acetaminophen 01/04/20 01/04/20 01/04/20 15:47 18:05 22:07 WBC RBC Hgb Hct MCV MCH MCHC RDW Plt Count Lymph % (Auto) [place] % (Auto) Eos % (Auto) Baso % (Auto) Lymph # [place] # Eos # Baso # Seg Neutrophils % Monocytes % (Manual) Monocytes # (Manual) D-Dimer ABG pH ABG pO2 ABG HCO3 ABG O2 Saturation ABG Base Excess ABG Hemoglobin Oxyhemoglobin Sodium Potassium Chloride Carbon Dioxide BUN Creatinine Glucose POC Glucose 135 H 117 H 108 H Lactic Acid Calcium Magnesium AST ALT Lactate Dehydrogenase Total Creatine Kinase C-Reactive Protein Total Protein Albumin Free T4 Urine WBC (Auto) Urine Total Protein Digoxin Salicylates Acetaminophen 01/04/20 01/04/20 01/05/20 Unknown Unknown 02:04 WBC RBC 3.46 L Hgb 8.2 L Hct 27.8 L MCV 80 L MCH 24 L MCHC 30 L RDW 19.7 H Plt Count Lymph % (Auto) [place] % (Auto) Eos % (Auto) Baso % (Auto) Lymph # [place] # Eos # Baso # Seg Neutrophils % Monocytes % (Manual) Monocytes # (Manual) D-Dimer ABG pH ABG pO2 ABG HCO3 ABG O2 Saturation ABG Base Excess ABG Hemoglobin Oxyhemoglobin Sodium 150 H Potassium Chloride 110 H Carbon Dioxide 32 H BUN 32 H Creatinine Glucose 309 H POC Glucose 140 H Lactic Acid Calcium Magnesium AST ALT Lactate Dehydrogenase Total Creatine Kinase C-Reactive Protein Total Protein Albumin Free T4 Urine WBC (Auto) Urine Total Protein Digoxin Salicylates Acetaminophen 01/05/20 01/05/20 01/05/20 03:31 03:36 03:36 WBC RBC 3.46 L Hgb 8.4 L Hct 26.9 L MCV 78 L MCH 24 L MCHC 31 L RDW 19.0 H Plt Count Lymph % (Auto) [place] % (Auto) Eos % (Auto) Baso % (Auto) Lymph # [place] # Eos # Baso # Seg Neutrophils % Monocytes % (Manual) Monocytes # (Manual) D-Dimer ABG pH 7.454 H ABG pO2 113.0 H ABG HCO3 30.5 H ABG O2 Saturation ABG Base Excess 6.0 H ABG Hemoglobin 8.5 L Oxyhemoglobin Sodium 150 H Potassium Chloride 110.3 H Carbon Dioxide BUN 30 H Creatinine Glucose 148 H POC Glucose Lactic Acid Calcium Magnesium AST ALT Lactate Dehydrogenase Total Creatine Kinase C-Reactive Protein Total Protein Albumin Free T4 Urine WBC (Auto) Urine Total Protein Digoxin Salicylates Acetaminophen 01/05/20 01/05/20 01/05/20 05:21 09:56 11:45 WBC RBC Hgb Hct MCV MCH MCHC RDW Plt Count Lymph % (Auto) [place] % (Auto) Eos % (Auto) Baso % (Auto) Lymph # [place] # Eos # Baso # Seg Neutrophils % Monocytes % (Manual) Monocytes # (Manual) D-Dimer ABG pH ABG pO2 ABG HCO3 ABG O2 Saturation ABG Base Excess ABG Hemoglobin Oxyhemoglobin Sodium Potassium Chloride Carbon Dioxide BUN Creatinine Glucose POC Glucose 142 H 129 H 174 H Lactic Acid Calcium Magnesium AST ALT Lactate Dehydrogenase Total Creatine Kinase C-Reactive Protein Total Protein Albumin Free T4 Urine WBC (Auto) Urine Total Protein Digoxin Salicylates Acetaminophen 01/05/20 01/05/20 01/05/20 13:30 14:00 17:41 WBC RBC Hgb Hct MCV MCH MCHC RDW Plt Count Lymph % (Auto) [place] % (Auto) Eos % (Auto) Baso % (Auto) Lymph # [place] # Eos # Baso # Seg Neutrophils % Monocytes % (Manual) Monocytes # (Manual) D-Dimer ABG pH ABG pO2 ABG HCO3 ABG O2 Saturation ABG Base Excess ABG Hemoglobin Oxyhemoglobin Sodium Potassium Chloride Carbon Dioxide BUN 26 H Creatinine 1.6 H Glucose 302 H POC Glucose 168 H 136 H Lactic Acid Calcium Magnesium AST ALT Lactate Dehydrogenase Total Creatine Kinase C-Reactive Protein Total Protein Albumin Free T4 Urine WBC (Auto) Urine Total Protein Digoxin Salicylates Acetaminophen 01/05/20 01/05/20 01/06/20 20:38 23:32 03:50 WBC RBC Hgb Hct MCV MCH MCHC RDW Plt Count Lymph % (Auto) [place] % (Auto) Eos % (Auto) Baso % (Auto) Lymph # [place] # Eos # Baso # Seg Neutrophils % Monocytes % (Manual) Monocytes # (Manual) D-Dimer ABG pH ABG pO2 76.2 L ABG HCO3 30.1 H ABG O2 Saturation ABG Base Excess 5.1 H ABG Hemoglobin 9.5 L Oxyhemoglobin 93.8 L Sodium Potassium Chloride Carbon Dioxide BUN Creatinine Glucose POC Glucose 124 H 163 H Lactic Acid Calcium Magnesium AST ALT Lactate Dehydrogenase Total Creatine Kinase C-Reactive Protein Total Protein Albumin Free T4 Urine WBC (Auto) Urine Total Protein Digoxin Salicylates Acetaminophen 01/06/20 01/06/20 01/06/20 04:09 04:58 04:58 WBC RBC Hgb 8.8 L Hct 28.7 L MCV 78 L MCH 24 L MCHC 31 L RDW 18.7 H Plt Count 522 H Lymph % (Auto) [place] % (Auto) Eos % (Auto) Baso % (Auto) Lymph # [place] # Eos # Baso # Seg Neutrophils % Monocytes % (Manual) Monocytes # (Manual) D-Dimer ABG pH ABG pO2 ABG HCO3 ABG O2 Saturation ABG Base Excess ABG Hemoglobin Oxyhemoglobin Sodium 150 H D Potassium Chloride 109.3 H Carbon Dioxide BUN 25 H Creatinine Glucose 55 L POC Glucose 65 L Lactic Acid Calcium Magnesium AST ALT Lactate Dehydrogenase Total Creatine Kinase C-Reactive Protein Total Protein Albumin Free T4 Urine WBC (Auto) Urine Total Protein Digoxin Salicylates Acetaminophen 01/06/20 01/06/20 01/06/20 05:01 14:10 17:49 WBC RBC Hgb Hct MCV MCH MCHC RDW Plt Count Lymph % (Auto) [place] % (Auto) Eos % (Auto) Baso % (Auto) Lymph # [place] # Eos # Baso # Seg Neutrophils % Monocytes % (Manual) Monocytes # (Manual) D-Dimer ABG pH ABG pO2 ABG HCO3 ABG O2 Saturation ABG Base Excess ABG Hemoglobin Oxyhemoglobin Sodium Potassium Chloride Carbon Dioxide BUN Creatinine Glucose POC Glucose 60 L 119 H 131 H Lactic Acid Calcium Magnesium AST ALT Lactate Dehydrogenase Total Creatine Kinase C-Reactive Protein Total Protein Albumin Free T4 Urine WBC (Auto) Urine Total Protein Digoxin Salicylates Acetaminophen 01/06/20 01/07/20 01/07/20 21:08 02:11 05:19 WBC RBC Hgb Hct MCV MCH MCHC RDW Plt Count Lymph % (Auto) [place] % (Auto) Eos % (Auto) Baso % (Auto) Lymph # [place] # Eos # Baso # Seg Neutrophils % Monocytes % (Manual) Monocytes # (Manual) D-Dimer ABG pH ABG pO2 ABG HCO3 ABG O2 Saturation ABG Base Excess ABG Hemoglobin Oxyhemoglobin Sodium Potassium Chloride Carbon Dioxide BUN Creatinine Glucose POC Glucose 136 H 209 H 182 H Lactic Acid Calcium Magnesium AST ALT Lactate Dehydrogenase Total Creatine Kinase C-Reactive Protein Total Protein Albumin Free T4 Urine WBC (Auto) Urine Total Protein Digoxin Salicylates Acetaminophen 01/07/20 01/07/20 01/07/20 11:40 11:52 13:49 WBC RBC Hgb Hct MCV MCH MCHC RDW Plt Count Lymph % (Auto) [place] % (Auto) Eos % (Auto) Baso % (Auto) Lymph # [place] # Eos # Baso # Seg Neutrophils % Monocytes % (Manual) Monocytes # (Manual) D-Dimer ABG pH ABG pO2 ABG HCO3 ABG O2 Saturation ABG Base Excess ABG Hemoglobin Oxyhemoglobin Sodium Potassium Chloride Carbon Dioxide BUN 21 H Creatinine Glucose 190 H POC Glucose 180 H 184 H Lactic Acid Calcium Magnesium AST ALT Lactate Dehydrogenase Total Creatine Kinase C-Reactive Protein Total Protein Albumin Free T4 Urine WBC (Auto) Urine Total Protein Digoxin Salicylates Acetaminophen 01/07/20 01/07/20 01/07/20 17:54 22:19 Unknown WBC RBC Hgb Hct MCV MCH MCHC RDW Plt Count Lymph % (Auto) [place] % (Auto) Eos % (Auto) Baso % (Auto) Lymph # [place] # Eos # Baso # Seg Neutrophils % Monocytes % (Manual) Monocytes # (Manual) D-Dimer ABG pH ABG pO2 ABG HCO3 28.9 H ABG O2 Saturation ABG Base Excess 4.0 H ABG Hemoglobin 11.0 L Oxyhemoglobin 94.2 L Sodium Potassium Chloride Carbon Dioxide BUN Creatinine Glucose POC Glucose 190 H 299 H Lactic Acid Calcium Magnesium AST ALT Lactate Dehydrogenase Total Creatine Kinase C-Reactive Protein Total Protein Albumin Free T4 Urine WBC (Auto) Urine Total Protein Digoxin Salicylates Acetaminophen 01/08/20 01/08/20 01/08/20 02:45 05:26 05:27 WBC RBC Hgb Hct MCV MCH MCHC RDW Plt Count Lymph % (Auto) [place] % (Auto) Eos % (Auto) Baso % (Auto) Lymph # [place] # Eos # Baso # Seg Neutrophils % Monocytes % (Manual) Monocytes # (Manual) D-Dimer ABG pH ABG pO2 67.8 L ABG HCO3 26.5 H ABG O2 Saturation 93.2 L ABG Base Excess ABG Hemoglobin 8.1 L Oxyhemoglobin 90.4 L Sodium Potassium Chloride Carbon Dioxide BUN Creatinine Glucose POC Glucose 245 H 346 H Lactic Acid Calcium Magnesium AST ALT Lactate Dehydrogenase Total Creatine Kinase C-Reactive Protein Total Protein Albumin Free T4 Urine WBC (Auto) Urine Total Protein Digoxin Salicylates Acetaminophen 01/08/20 01/08/20 01/08/20 08:03 08:03 10:33 WBC RBC 3.14 L Hgb 7.6 L Hct 24.3 L MCV 77 L MCH 24 L MCHC 31 L RDW 18.3 H Plt Count 509 H Lymph % (Auto) [place] % (Auto) Eos % (Auto) Baso % (Auto) Lymph # [place] # Eos # Baso # Seg Neutrophils % Monocytes % (Manual) Monocytes # (Manual) D-Dimer ABG pH ABG pO2 ABG HCO3 ABG O2 Saturation ABG Base Excess ABG Hemoglobin Oxyhemoglobin Sodium 132 L D Potassium Chloride 94.7 L Carbon Dioxide BUN 22 H Creatinine Glucose 284 H POC Glucose 275 H Lactic Acid Calcium Magnesium AST ALT Lactate Dehydrogenase Total Creatine Kinase C-Reactive Protein Total Protein Albumin Free T4 Urine WBC (Auto) Urine Total Protein Digoxin Salicylates Acetaminophen 01/08/20 01/08/20 01/08/20 13:34 17:24 21:49 WBC RBC Hgb Hct MCV MCH MCHC RDW Plt Count Lymph % (Auto) [place] % (Auto) Eos % (Auto) Baso % (Auto) Lymph # [place] # Eos # Baso # Seg Neutrophils % Monocytes % (Manual) Monocytes # (Manual) D-Dimer ABG pH ABG pO2 ABG HCO3 ABG O2 Saturation ABG Base Excess ABG Hemoglobin Oxyhemoglobin Sodium Potassium Chloride Carbon Dioxide BUN Creatinine Glucose POC Glucose 273 H 294 H 265 H Lactic Acid Calcium Magnesium AST ALT Lactate Dehydrogenase Total Creatine Kinase C-Reactive Protein Total Protein Albumin Free T4 Urine WBC (Auto) Urine Total Protein Digoxin Salicylates Acetaminophen 01/09/20 01/09/20 01/09/20 00:13 03:45 05:55 WBC RBC Hgb Hct MCV MCH MCHC RDW Plt Count Lymph % (Auto) [place] % (Auto) Eos % (Auto) Baso % (Auto) Lymph # [place] # Eos # Baso # Seg Neutrophils % Monocytes % (Manual) Monocytes # (Manual) D-Dimer ABG pH ABG pO2 ABG HCO3 ABG O2 Saturation ABG Base Excess ABG Hemoglobin Oxyhemoglobin Sodium Potassium Chloride Carbon Dioxide BUN Creatinine Glucose POC Glucose 251 H 346 H 300 H Lactic Acid Calcium Magnesium AST ALT Lactate Dehydrogenase Total Creatine Kinase C-Reactive Protein Total Protein Albumin Free T4 Urine WBC (Auto) Urine Total Protein Digoxin Salicylates Acetaminophen 01/09/20 01/09/20 01/09/20 08:15 09:31 12:04 WBC RBC Hgb Hct MCV MCH MCHC RDW Plt Count Lymph % (Auto) [place] % (Auto) Eos % (Auto) Baso % (Auto) Lymph # [place] # Eos # Baso # Seg Neutrophils % Monocytes % (Manual) Monocytes # (Manual) D-Dimer ABG pH ABG pO2 ABG HCO3 ABG O2 Saturation ABG Base Excess ABG Hemoglobin Oxyhemoglobin Sodium 134 L Potassium Chloride 97.6 L Carbon Dioxide BUN 25 H Creatinine Glucose 240 H POC Glucose 191 H 230 H Lactic Acid Calcium Magnesium AST ALT Lactate Dehydrogenase Total Creatine Kinase C-Reactive Protein Total Protein Albumin Free T4 Urine WBC (Auto) Urine Total Protein Digoxin Salicylates Acetaminophen 01/09/20 01/09/20 01/09/20 13:46 17:31 22:28 WBC RBC Hgb Hct MCV MCH MCHC RDW Plt Count Lymph % (Auto) [place] % (Auto) Eos % (Auto) Baso % (Auto) Lymph # [place] # Eos # Baso # Seg Neutrophils % Monocytes % (Manual) Monocytes # (Manual) D-Dimer ABG pH ABG pO2 ABG HCO3 ABG O2 Saturation ABG Base Excess ABG Hemoglobin Oxyhemoglobin Sodium Potassium Chloride Carbon Dioxide BUN Creatinine Glucose POC Glucose 211 H 260 H 223 H Lactic Acid Calcium Magnesium AST ALT Lactate Dehydrogenase Total Creatine Kinase C-Reactive Protein Total Protein Albumin Free T4 Urine WBC (Auto) Urine Total Protein Digoxin Salicylates Acetaminophen 01/10/20 01/10/20 01/10/20 02:16 04:20 05:55 WBC RBC Hgb Hct MCV MCH MCHC RDW Plt Count Lymph % (Auto) [place] % (Auto) Eos % (Auto) Baso % (Auto) Lymph # [place] # Eos # Baso # Seg Neutrophils % Monocytes % (Manual) Monocytes # (Manual) D-Dimer ABG pH ABG pO2 95.3 H ABG HCO3 27.8 H ABG O2 Saturation ABG Base Excess ABG Hemoglobin 8.3 L Oxyhemoglobin Sodium Potassium Chloride Carbon Dioxide BUN Creatinine Glucose POC Glucose 219 H 245 H Lactic Acid Calcium Magnesium AST ALT Lactate Dehydrogenase Total Creatine Kinase C-Reactive Protein Total Protein Albumin Free T4 Urine WBC (Auto) Urine Total Protein Digoxin Salicylates Acetaminophen 01/10/20 01/10/20 01/10/20 10:38 15:08 15:45 WBC RBC Hgb Hct MCV MCH MCHC RDW Plt Count Lymph % (Auto) [place] % (Auto) Eos % (Auto) Baso % (Auto) Lymph # [place] # Eos # Baso # Seg Neutrophils % Monocytes % (Manual) Monocytes # (Manual) D-Dimer ABG pH ABG pO2 ABG HCO3 ABG O2 Saturation ABG Base Excess ABG Hemoglobin Oxyhemoglobin Sodium Potassium Chloride Carbon Dioxide BUN Creatinine Glucose POC Glucose 268 H 246 H 238 H Lactic Acid Calcium Magnesium AST ALT Lactate Dehydrogenase Total Creatine Kinase C-Reactive Protein Total Protein Albumin Free T4 Urine WBC (Auto) Urine Total Protein Digoxin Salicylates Acetaminophen 01/10/20 01/10/20 01/10/20 18:00 21:09 22:48 WBC RBC Hgb Hct MCV MCH MCHC RDW Plt Count Lymph % (Auto) [place] % (Auto) Eos % (Auto) Baso % (Auto) Lymph # [place] # Eos # Baso # Seg Neutrophils % Monocytes % (Manual) Monocytes # (Manual) D-Dimer ABG pH ABG pO2 ABG HCO3 ABG O2 Saturation ABG Base Excess ABG Hemoglobin Oxyhemoglobin Sodium Potassium Chloride Carbon Dioxide BUN Creatinine Glucose POC Glucose 187 H 176 H 189 H Lactic Acid Calcium Magnesium AST ALT Lactate Dehydrogenase Total Creatine Kinase C-Reactive Protein Total Protein Albumin Free T4 Urine WBC (Auto) Urine Total Protein Digoxin Salicylates Acetaminophen 01/11/20 01/11/20 01/11/20 03:07 05:45 05:45 WBC RBC 3.15 L Hgb 7.7 L Hct 24.9 L MCV 79 L MCH 24 L MCHC 31 L RDW 18.7 H Plt Count 667 H Lymph % (Auto) [place] % (Auto) Eos % (Auto) Baso % (Auto) Lymph # [place] # Eos # Baso # Seg Neutrophils % Monocytes % (Manual) Monocytes # (Manual) D-Dimer ABG pH ABG pO2 ABG HCO3 ABG O2 Saturation ABG Base Excess ABG Hemoglobin Oxyhemoglobin Sodium 148 H D Potassium 5.1 H Chloride 111.9 H Carbon Dioxide BUN 26 H Creatinine Glucose 236 H POC Glucose 253 H Lactic Acid Calcium Magnesium AST 67 H ALT Lactate Dehydrogenase Total Creatine Kinase C-Reactive Protein Total Protein 5.9 L Albumin 2.8 L Free T4 Urine WBC (Auto) Urine Total Protein Digoxin Salicylates Acetaminophen 01/11/20 01/11/20 01/11/20 06:10 12:59 14:22 WBC RBC Hgb Hct MCV MCH MCHC RDW Plt Count Lymph % (Auto) [place] % (Auto) Eos % (Auto) Baso % (Auto) Lymph # [place] # Eos # Baso # Seg Neutrophils % Monocytes % (Manual) Monocytes # (Manual) D-Dimer ABG pH ABG pO2 ABG HCO3 ABG O2 Saturation ABG Base Excess ABG Hemoglobin Oxyhemoglobin Sodium Potassium Chloride Carbon Dioxide BUN Creatinine Glucose POC Glucose 261 H 234 H 220 H Lactic Acid Calcium Magnesium AST ALT Lactate Dehydrogenase Total Creatine Kinase C-Reactive Protein Total Protein Albumin Free T4 Urine WBC (Auto) Urine Total Protein Digoxin Salicylates Acetaminophen 01/11/20 01/11/20 01/12/20 17:18 21:20 00:45 WBC RBC Hgb Hct MCV MCH MCHC RDW Plt Count Lymph % (Auto) [place] % (Auto) Eos % (Auto) Baso % (Auto) Lymph # [place] # Eos # Baso # Seg Neutrophils % Monocytes % (Manual) Monocytes # (Manual) D-Dimer ABG pH ABG pO2 ABG HCO3 ABG O2 Saturation ABG Base Excess ABG Hemoglobin Oxyhemoglobin Sodium Potassium Chloride Carbon Dioxide BUN Creatinine Glucose POC Glucose 264 H 299 H 289 H Lactic Acid Calcium Magnesium AST ALT Lactate Dehydrogenase Total Creatine Kinase C-Reactive Protein Total Protein Albumin Free T4 Urine WBC (Auto) Urine Total Protein Digoxin Salicylates Acetaminophen 01/12/20 01/12/20 01/12/20 04:35 06:10 11:29 WBC RBC Hgb Hct MCV MCH MCHC RDW Plt Count Lymph % (Auto) [place] % (Auto) Eos % (Auto) Baso % (Auto) Lymph # [place] # Eos # Baso # Seg Neutrophils % Monocytes % (Manual) Monocytes # (Manual) D-Dimer ABG pH ABG pO2 ABG HCO3 ABG O2 Saturation ABG Base Excess ABG Hemoglobin Oxyhemoglobin Sodium Potassium Chloride Carbon Dioxide BUN Creatinine Glucose POC Glucose 187 H 194 H 213 H Lactic Acid Calcium Magnesium AST ALT Lactate Dehydrogenase Total Creatine Kinase C-Reactive Protein Total Protein Albumin Free T4 Urine WBC (Auto) Urine Total Protein Digoxin Salicylates Acetaminophen 01/12/20 01/12/20 01/12/20 14:40 18:50 21:34 WBC RBC Hgb Hct MCV MCH MCHC RDW Plt Count Lymph % (Auto) [place] % (Auto) Eos % (Auto) Baso % (Auto) Lymph # [place] # Eos # Baso # Seg Neutrophils % Monocytes % (Manual) Monocytes # (Manual) D-Dimer ABG pH ABG pO2 ABG HCO3 ABG O2 Saturation ABG Base Excess ABG Hemoglobin Oxyhemoglobin Sodium Potassium Chloride Carbon Dioxide BUN Creatinine Glucose POC Glucose 288 H 292 H 147 H Lactic Acid Calcium Magnesium AST ALT Lactate Dehydrogenase Total Creatine Kinase C-Reactive Protein Total Protein Albumin Free T4 Urine WBC (Auto) Urine Total Protein Digoxin Salicylates Acetaminophen 01/12/20 01/13/20 01/13/20 23:16 04:00 05:27 WBC RBC Hgb Hct MCV MCH MCHC RDW Plt Count Lymph % (Auto) [place] % (Auto) Eos % (Auto) Baso % (Auto) Lymph # [place] # Eos # Baso # Seg Neutrophils % Monocytes % (Manual) Monocytes # (Manual) D-Dimer ABG pH ABG pO2 ABG HCO3 ABG O2 Saturation ABG Base Excess ABG Hemoglobin Oxyhemoglobin Sodium 149 H Potassium Chloride 112.4 H Carbon Dioxide 32 H BUN 28 H Creatinine Glucose 174 H POC Glucose 122 H 143 H Lactic Acid Calcium Magnesium AST ALT Lactate Dehydrogenase Total Creatine Kinase C-Reactive Protein Total Protein Albumin Free T4 Urine WBC (Auto) Urine Total Protein Digoxin Salicylates Acetaminophen 01/13/20 01/13/20 01/13/20 10:24 13:34 15:10 WBC RBC Hgb Hct MCV MCH MCHC RDW Plt Count Lymph % (Auto) [place] % (Auto) Eos % (Auto) Baso % (Auto) Lymph # [place] # Eos # Baso # Seg Neutrophils % Monocytes % (Manual) Monocytes # (Manual) D-Dimer ABG pH 7.223 L ABG pO2 ABG HCO3 33.1 H ABG O2 Saturation 94.7 L ABG Base Excess 4.2 H ABG Hemoglobin 8.5 L Oxyhemoglobin 92.1 L Sodium Potassium Chloride Carbon Dioxide BUN Creatinine Glucose POC Glucose 172 H 151 H Lactic Acid Calcium Magnesium AST ALT Lactate Dehydrogenase Total Creatine Kinase C-Reactive Protein Total Protein Albumin Free T4 Urine WBC (Auto) Urine Total Protein Digoxin Salicylates Acetaminophen 01/13/20 01/13/20 01/13/20 17:59 20:37 22:17 WBC RBC Hgb Hct MCV MCH MCHC RDW Plt Count Lymph % (Auto) [place] % (Auto) Eos % (Auto) Baso % (Auto) Lymph # [place] # Eos # Baso # Seg Neutrophils % Monocytes % (Manual) Monocytes # (Manual) D-Dimer ABG pH ABG pO2 ABG HCO3 ABG O2 Saturation ABG Base Excess ABG Hemoglobin Oxyhemoglobin Sodium Potassium Chloride Carbon Dioxide BUN Creatinine Glucose POC Glucose 114 H 152 H Lactic Acid Calcium Magnesium AST ALT Lactate Dehydrogenase Total Creatine Kinase C-Reactive Protein Total Protein Albumin Free T4 0.63 L Urine WBC (Auto) Urine Total Protein Digoxin Salicylates Acetaminophen 01/13/20 01/14/20 01/14/20 Unknown 02:10 05:20 WBC RBC 3.39 L Hgb 8.1 L Hct 28.4 L MCV MCH 24 L MCHC 29 L RDW 19.9 H Plt Count 713 H Lymph % (Auto) [place] % (Auto) 12.7 H Eos % (Auto) Baso % (Auto) 1.9 H Lymph # [place] # 1.3 H Eos # Baso # 0.2 H Seg Neutrophils % Monocytes % (Manual) Monocytes # (Manual) D-Dimer ABG pH ABG pO2 ABG HCO3 ABG O2 Saturation ABG Base Excess ABG Hemoglobin Oxyhemoglobin Sodium Potassium Chloride Carbon Dioxide BUN Creatinine Glucose POC Glucose 151 H 157 H Lactic Acid Calcium Magnesium AST ALT Lactate Dehydrogenase Total Creatine Kinase C-Reactive Protein Total Protein Albumin Free T4 Urine WBC (Auto) Urine Total Protein Digoxin Salicylates Acetaminophen 01/14/20 01/14/20 01/14/20 11:49 14:56 18:03 WBC RBC Hgb Hct MCV MCH MCHC RDW Plt Count Lymph % (Auto) [place] % (Auto) Eos % (Auto) Baso % (Auto) Lymph # [place] # Eos # Baso # Seg Neutrophils % Monocytes % (Manual) Monocytes # (Manual) D-Dimer ABG pH ABG pO2 ABG HCO3 ABG O2 Saturation ABG Base Excess ABG Hemoglobin Oxyhemoglobin Sodium Potassium Chloride Carbon Dioxide BUN Creatinine Glucose POC Glucose 139 H 112 H 134 H Lactic Acid Calcium Magnesium AST ALT Lactate Dehydrogenase Total Creatine Kinase C-Reactive Protein Total Protein Albumin Free T4 Urine WBC (Auto) Urine Total Protein Digoxin Salicylates Acetaminophen 01/14/20 01/15/20 01/15/20 22:03 02:21 05:28 WBC RBC Hgb Hct MCV MCH MCHC RDW Plt Count Lymph % (Auto) [place] % (Auto) Eos % (Auto) Baso % (Auto) Lymph # [place] # Eos # Baso # Seg Neutrophils % Monocytes % (Manual) Monocytes # (Manual) D-Dimer ABG pH ABG pO2 ABG HCO3 ABG O2 Saturation ABG Base Excess ABG Hemoglobin Oxyhemoglobin Sodium Potassium Chloride Carbon Dioxide BUN Creatinine Glucose POC Glucose 173 H 129 H 127 H Lactic Acid Calcium Magnesium AST ALT Lactate Dehydrogenase Total Creatine Kinase C-Reactive Protein Total Protein Albumin Free T4 Urine WBC (Auto) Urine Total Protein Digoxin Salicylates Acetaminophen 01/15/20 01/15/20 01/15/20 10:43 16:14 18:25 WBC RBC Hgb Hct MCV MCH MCHC RDW Plt Count Lymph % (Auto) [place] % (Auto) Eos % (Auto) Baso % (Auto) Lymph # [place] # Eos # Baso # Seg Neutrophils % Monocytes % (Manual) Monocytes # (Manual) D-Dimer ABG pH ABG pO2 ABG HCO3 ABG O2 Saturation ABG Base Excess ABG Hemoglobin Oxyhemoglobin Sodium Potassium Chloride Carbon Dioxide BUN Creatinine Glucose POC Glucose 150 H 133 H 166 H Lactic Acid Calcium Magnesium AST ALT Lactate Dehydrogenase Total Creatine Kinase C-Reactive Protein Total Protein Albumin Free T4 Urine WBC (Auto) Urine Total Protein Digoxin Salicylates Acetaminophen 01/15/20 01/16/20 01/16/20 23:03 02:11 06:00 WBC RBC 3.19 L Hgb 7.9 L Hct 26.2 L MCV 82 L MCH 25 L MCHC 30 L RDW 20.1 H Plt Count 466 H Lymph % (Auto) 12.9 L [place] % (Auto) 11.2 H Eos % (Auto) 11.0 H Baso % (Auto) Lymph # 1.1 L [place] # 0.9 H Eos # 0.9 H Baso # Seg Neutrophils % Monocytes % (Manual) Monocytes # (Manual) D-Dimer ABG pH ABG pO2 ABG HCO3 ABG O2 Saturation ABG Base Excess ABG Hemoglobin Oxyhemoglobin Sodium Potassium Chloride Carbon Dioxide BUN Creatinine Glucose POC Glucose 143 H 136 H Lactic Acid Calcium Magnesium AST ALT Lactate Dehydrogenase Total Creatine Kinase C-Reactive Protein Total Protein Albumin Free T4 Urine WBC (Auto) Urine Total Protein Digoxin Salicylates Acetaminophen 01/16/20 01/16/20 01/16/20 06:00 06:10 11:52 WBC RBC Hgb Hct MCV MCH MCHC RDW Plt Count Lymph % (Auto) [place] % (Auto) Eos % (Auto) Baso % (Auto) Lymph # [place] # Eos # Baso # Seg Neutrophils % Monocytes % (Manual) Monocytes # (Manual) D-Dimer ABG pH ABG pO2 ABG HCO3 ABG O2 Saturation ABG Base Excess ABG Hemoglobin Oxyhemoglobin Sodium 152 H Potassium Chloride 110.2 H Carbon Dioxide 36 H BUN 23 H Creatinine 0.7 L Glucose 161 H POC Glucose 192 H 184 H Lactic Acid Calcium Magnesium AST ALT Lactate Dehydrogenase Total Creatine Kinase C-Reactive Protein Total Protein Albumin Free T4 Urine WBC (Auto) Urine Total Protein Digoxin Salicylates Acetaminophen 01/16/20 01/16/20 01/16/20 15:15 17:12 22:12 WBC RBC Hgb Hct MCV MCH MCHC RDW Plt Count Lymph % (Auto) [place] % (Auto) Eos % (Auto) Baso % (Auto) Lymph # [place] # Eos # Baso # Seg Neutrophils % Monocytes % (Manual) Monocytes # (Manual) D-Dimer ABG pH ABG pO2 ABG HCO3 ABG O2 Saturation ABG Base Excess ABG Hemoglobin Oxyhemoglobin Sodium Potassium Chloride Carbon Dioxide BUN Creatinine Glucose POC Glucose 224 H 183 H 106 H Lactic Acid Calcium Magnesium AST ALT Lactate Dehydrogenase Total Creatine Kinase C-Reactive Protein Total Protein Albumin Free T4 Urine WBC (Auto) Urine Total Protein Digoxin Salicylates Acetaminophen 01/17/20 01/17/20 01/17/20 02:13 06:10 06:20 WBC RBC 3.50 L Hgb 8.6 L Hct 29.0 L MCV 83 L MCH 25 L MCHC 30 L RDW 21.1 H Plt Count 517 H Lymph % (Auto) [place] % (Auto) 9.7 H Eos % (Auto) 11.9 H Baso % (Auto) Lymph # [place] # Eos # 1.0 H Baso # Seg Neutrophils % Monocytes % (Manual) Monocytes # (Manual) D-Dimer ABG pH ABG pO2 ABG HCO3 ABG O2 Saturation ABG Base Excess ABG Hemoglobin Oxyhemoglobin Sodium Potassium Chloride Carbon Dioxide BUN Creatinine Glucose POC Glucose 164 H 178 H Lactic Acid Calcium Magnesium AST ALT Lactate Dehydrogenase Total Creatine Kinase C-Reactive Protein Total Protein Albumin Free T4 Urine WBC (Auto) Urine Total Protein Digoxin Salicylates Acetaminophen 01/17/20 01/17/20 01/17/20 06:20 10:48 13:23 WBC RBC Hgb Hct MCV MCH MCHC RDW Plt Count Lymph % (Auto) [place] % (Auto) Eos % (Auto) Baso % (Auto) Lymph # [place] # Eos # Baso # Seg Neutrophils % Monocytes % (Manual) Monocytes # (Manual) D-Dimer ABG pH ABG pO2 ABG HCO3 ABG O2 Saturation ABG Base Excess ABG Hemoglobin Oxyhemoglobin Sodium 148 H Potassium Chloride Carbon Dioxide 34 H BUN 21 H Creatinine 0.6 L Glucose 151 H POC Glucose 172 H 161 H Lactic Acid Calcium Magnesium AST ALT Lactate Dehydrogenase Total Creatine Kinase C-Reactive Protein Total Protein Albumin Free T4 Urine WBC (Auto) Urine Total Protein Digoxin Salicylates Acetaminophen 01/17/20 01/17/20 01/18/20 17:23 21:46 04:45 WBC RBC 3.28 L Hgb 8.0 L Hct 27.0 L MCV 82 L MCH 24 L MCHC 30 L RDW 21.0 H Plt Count 450 H Lymph % (Auto) [place] % (Auto) 11.5 H Eos % (Auto) 13.1 H Baso % (Auto) Lymph # [place] # Eos # 0.9 H Baso # Seg Neutrophils % Monocytes % (Manual) Monocytes # (Manual) D-Dimer ABG pH ABG pO2 ABG HCO3 ABG O2 Saturation ABG Base Excess ABG Hemoglobin Oxyhemoglobin Sodium Potassium Chloride Carbon Dioxide BUN Creatinine Glucose POC Glucose 138 H 106 H Lactic Acid Calcium Magnesium AST ALT Lactate Dehydrogenase Total Creatine Kinase C-Reactive Protein Total Protein Albumin Free T4 Urine WBC (Auto) Urine Total Protein Digoxin Salicylates Acetaminophen 01/18/20 01/18/20 01/18/20 04:45 10:38 12:19 WBC RBC Hgb Hct MCV MCH MCHC RDW Plt Count Lymph % (Auto) [place] % (Auto) Eos % (Auto) Baso % (Auto) Lymph # [place] # Eos # Baso # Seg Neutrophils % Monocytes % (Manual) Monocytes # (Manual) D-Dimer ABG pH ABG pO2 ABG HCO3 ABG O2 Saturation ABG Base Excess ABG Hemoglobin Oxyhemoglobin Sodium Potassium Chloride Carbon Dioxide 35 H BUN Creatinine Glucose 71 L POC Glucose 106 H 138 H Lactic Acid Calcium Magnesium AST ALT Lactate Dehydrogenase Total Creatine Kinase C-Reactive Protein Total Protein Albumin Free T4 Urine WBC (Auto) Urine Total Protein Digoxin Salicylates Acetaminophen 01/18/20 01/18/20 01/19/20 13:38 17:54 03:36 WBC RBC Hgb Hct MCV MCH MCHC RDW Plt Count Lymph % (Auto) [place] % (Auto) Eos % (Auto) Baso % (Auto) Lymph # [place] # Eos # Baso # Seg Neutrophils % Monocytes % (Manual) Monocytes # (Manual) D-Dimer ABG pH ABG pO2 ABG HCO3 ABG O2 Saturation ABG Base Excess ABG Hemoglobin Oxyhemoglobin Sodium Potassium Chloride Carbon Dioxide BUN Creatinine Glucose POC Glucose 129 H 144 H 185 H Lactic Acid Calcium Magnesium AST ALT Lactate Dehydrogenase Total Creatine Kinase C-Reactive Protein Total Protein Albumin Free T4 Urine WBC (Auto) Urine Total Protein Digoxin Salicylates Acetaminophen 01/19/20 01/19/20 01/19/20 05:45 05:45 06:16 WBC RBC 3.30 L Hgb 8.1 L Hct 27.2 L MCV 82 L MCH 25 L MCHC 30 L RDW 20.6 H Plt Count Lymph % (Auto) 10.3 L [place] % (Auto) 13.0 H Eos % (Auto) 7.9 H Baso % (Auto) Lymph # 0.8 L [place] # 1.0 H Eos # 0.6 H Baso # Seg Neutrophils % Monocytes % (Manual) Monocytes # (Manual) D-Dimer ABG pH ABG pO2 ABG HCO3 ABG O2 Saturation ABG Base Excess ABG Hemoglobin Oxyhemoglobin Sodium Potassium Chloride Carbon Dioxide 34 H BUN Creatinine Glucose 167 H POC Glucose 182 H Lactic Acid Calcium Magnesium AST ALT Lactate Dehydrogenase Total Creatine Kinase C-Reactive Protein Total Protein Albumin Free T4 Urine WBC (Auto) Urine Total Protein Digoxin Salicylates Acetaminophen 01/19/20 01/19/20 01/19/20 09:18 13:46 18:17 WBC RBC Hgb Hct MCV MCH MCHC RDW Plt Count Lymph % (Auto) [place] % (Auto) Eos % (Auto) Baso % (Auto) Lymph # [place] # Eos # Baso # Seg Neutrophils % Monocytes % (Manual) Monocytes # (Manual) D-Dimer ABG pH ABG pO2 ABG HCO3 ABG O2 Saturation ABG Base Excess ABG Hemoglobin Oxyhemoglobin Sodium Potassium Chloride Carbon Dioxide BUN Creatinine Glucose POC Glucose 181 H 238 H 189 H Lactic Acid Calcium Magnesium AST ALT Lactate Dehydrogenase Total Creatine Kinase C-Reactive Protein Total Protein Albumin Free T4 Urine WBC (Auto) Urine Total Protein Digoxin Salicylates Acetaminophen 01/19/20 01/20/20 01/20/20 22:19 02:08 05:54 WBC RBC Hgb Hct MCV MCH MCHC RDW Plt Count Lymph % (Auto) [place] % (Auto) Eos % (Auto) Baso % (Auto) Lymph # [place] # Eos # Baso # Seg Neutrophils % Monocytes % (Manual) Monocytes # (Manual) D-Dimer ABG pH ABG pO2 ABG HCO3 ABG O2 Saturation ABG Base Excess ABG Hemoglobin Oxyhemoglobin Sodium Potassium Chloride Carbon Dioxide BUN Creatinine Glucose POC Glucose 138 H 196 H 200 H Lactic Acid Calcium Magnesium AST ALT Lactate Dehydrogenase Total Creatine Kinase C-Reactive Protein Total Protein Albumin Free T4 Urine WBC (Auto) Urine Total Protein Digoxin Salicylates Acetaminophen 01/20/20 01/20/20 01/21/20 10:40 17:09 00:49 WBC RBC Hgb Hct MCV MCH MCHC RDW Plt Count Lymph % (Auto) [place] % (Auto) Eos % (Auto) Baso % (Auto) Lymph # [place] # Eos # Baso # Seg Neutrophils % Monocytes % (Manual) Monocytes # (Manual) D-Dimer ABG pH ABG pO2 ABG HCO3 ABG O2 Saturation ABG Base Excess ABG Hemoglobin Oxyhemoglobin Sodium Potassium Chloride Carbon Dioxide BUN Creatinine Glucose POC Glucose 163 H 135 H 174 H Lactic Acid Calcium Magnesium AST ALT Lactate Dehydrogenase Total Creatine Kinase C-Reactive Protein Total Protein Albumin Free T4 Urine WBC (Auto) Urine Total Protein Digoxin Salicylates Acetaminophen 01/21/20 01/21/20 01/21/20 05:47 13:01 13:01 WBC RBC 3.06 L Hgb 7.5 L Hct 25.5 L MCV 83 L MCH 24 L MCHC 29 L RDW 22.0 H Plt Count Lymph % (Auto) [place] % (Auto) Eos % (Auto) Baso % (Auto) Lymph # [place] # Eos # Baso # Seg Neutrophils % Monocytes % (Manual) 8.0 H Monocytes # (Manual) D-Dimer ABG pH ABG pO2 ABG HCO3 ABG O2 Saturation ABG Base Excess ABG Hemoglobin Oxyhemoglobin Sodium 151 H Potassium Chloride Carbon Dioxide 39 H BUN Creatinine Glucose 122 H POC Glucose 180 H Lactic Acid Calcium Magnesium AST ALT Lactate Dehydrogenase Total Creatine Kinase C-Reactive Protein Total Protein Albumin 2.7 L Free T4 Urine WBC (Auto) Urine Total Protein Digoxin Salicylates Acetaminophen 01/21/20 01/22/20 01/22/20 18:37 01:20 04:45 WBC RBC Hgb Hct MCV MCH MCHC RDW Plt Count Lymph % (Auto) [place] % (Auto) Eos % (Auto) Baso % (Auto) Lymph # [place] # Eos # Baso # Seg Neutrophils % Monocytes % (Manual) Monocytes # (Manual) D-Dimer ABG pH ABG pO2 174.7 H ABG HCO3 41.5 H ABG O2 Saturation ABG Base Excess 14.6 H ABG Hemoglobin 7.6 L Oxyhemoglobin Sodium Potassium Chloride Carbon Dioxide BUN Creatinine Glucose POC Glucose 198 H 190 H Lactic Acid Calcium Magnesium AST ALT Lactate Dehydrogenase Total Creatine Kinase C-Reactive Protein Total Protein Albumin Free T4 Urine WBC (Auto) Urine Total Protein Digoxin Salicylates Acetaminophen 01/22/20 01/22/20 01/22/20 05:46 12:38 18:22 WBC RBC Hgb Hct MCV MCH MCHC RDW Plt Count Lymph % (Auto) [place] % (Auto) Eos % (Auto) Baso % (Auto) Lymph # [place] # Eos # Baso # Seg Neutrophils % Monocytes % (Manual) Monocytes # (Manual) D-Dimer ABG pH ABG pO2 ABG HCO3 ABG O2 Saturation ABG Base Excess ABG Hemoglobin Oxyhemoglobin Sodium Potassium Chloride Carbon Dioxide BUN Creatinine Glucose POC Glucose 200 H 203 H 201 H Lactic Acid Calcium Magnesium AST ALT Lactate Dehydrogenase Total Creatine Kinase C-Reactive Protein Total Protein Albumin Free T4 Urine WBC (Auto) Urine Total Protein Digoxin Salicylates Acetaminophen 01/22/20 01/23/20 01/23/20 23:51 05:34 09:50 WBC RBC Hgb Hct MCV MCH MCHC RDW Plt Count Lymph % (Auto) [place] % (Auto) Eos % (Auto) Baso % (Auto) Lymph # [place] # Eos # Baso # Seg Neutrophils % Monocytes % (Manual) Monocytes # (Manual) D-Dimer ABG pH ABG pO2 ABG HCO3 36.9 H ABG O2 Saturation ABG Base Excess 10.6 H ABG Hemoglobin 7.4 L Oxyhemoglobin 93.9 L Sodium Potassium Chloride Carbon Dioxide BUN Creatinine Glucose POC Glucose 191 H 190 H Lactic Acid Calcium Magnesium AST ALT Lactate Dehydrogenase Total Creatine Kinase C-Reactive Protein Total Protein Albumin Free T4 Urine WBC (Auto) Urine Total Protein Digoxin Salicylates Acetaminophen 01/23/20 01/23/20 01/23/20 12:20 18:39 21:10 WBC RBC Hgb Hct MCV MCH MCHC RDW Plt Count Lymph % (Auto) [place] % (Auto) Eos % (Auto) Baso % (Auto) Lymph # [place] # Eos # Baso # Seg Neutrophils % Monocytes % (Manual) Monocytes # (Manual) D-Dimer ABG pH ABG pO2 63.2 L ABG HCO3 36.2 H ABG O2 Saturation 89.8 L ABG Base Excess 9.1 H ABG Hemoglobin 10.0 L Oxyhemoglobin 87.1 L Sodium Potassium Chloride Carbon Dioxide BUN Creatinine Glucose POC Glucose 271 H 318 H Lactic Acid Calcium Magnesium AST ALT Lactate Dehydrogenase Total Creatine Kinase C-Reactive Protein Total Protein Albumin Free T4 Urine WBC (Auto) Urine Total Protein Digoxin Salicylates Acetaminophen 01/23/20 01/24/20 01/24/20 23:58 04:34 04:34 WBC 16.7 H RBC 3.20 L Hgb 7.8 L Hct 26.2 L MCV 82 L MCH 24 L MCHC 30 L RDW 21.2 H Plt Count Lymph % (Auto) [place] % (Auto) Eos % (Auto) Baso % (Auto) Lymph # [place] # Eos # Baso # Seg Neutrophils % Monocytes % (Manual) Monocytes # (Manual) D-Dimer ABG pH ABG pO2 ABG HCO3 ABG O2 Saturation ABG Base Excess ABG Hemoglobin Oxyhemoglobin Sodium 147 H Potassium Chloride Carbon Dioxide 36 H BUN 25 H Creatinine Glucose 239 H POC Glucose 214 H Lactic Acid Calcium 10.9 H Magnesium AST ALT Lactate Dehydrogenase Total Creatine Kinase C-Reactive Protein Total Protein Albumin Free T4 Urine WBC (Auto) Urine Total Protein Digoxin Salicylates Acetaminophen 01/24/20 01/24/20 05:40 12:15 WBC RBC Hgb Hct MCV MCH MCHC RDW Plt Count Lymph % (Auto) [place] % (Auto) Eos % (Auto) Baso % (Auto) Lymph # [place] # Eos # Baso # Seg Neutrophils % Monocytes % (Manual) Monocytes # (Manual) D-Dimer ABG pH ABG pO2 ABG HCO3 ABG O2 Saturation ABG Base Excess ABG Hemoglobin Oxyhemoglobin Sodium Potassium Chloride Carbon Dioxide BUN Creatinine Glucose POC Glucose 243 H 258 H Lactic Acid Calcium Magnesium AST ALT Lactate Dehydrogenase Total Creatine Kinase C-Reactive Protein Total Protein Albumin Free T4 Urine WBC (Auto) Urine Total Protein Digoxin Salicylates Acetaminophen Chest x-ray: pending Allied health notes reviewed: nursing
[2020-01-24 15:24] VITALS: BP 109/64
[2020-01-24] MEDS ORDERED: ENOXAPARIN 40 MG/0.4 ML INJ SUB-Q SCH (22:00)
== END 2020-01-24 16:10 | DRG 4 ==
LOC: ED 12:01 → CC1 13:31 → IMCU 12-22 14:08 → CC1 12-27 17:06
PROVIDERS: ADMIT Internal Medicine; ATTEND Internal Medicine
PROC: 4A033R1 Measurement of Arterial Saturation, Peripheral, Percutaneous Approach (ICD-10-PCS; 2019-12-18)
PROC: 5A1945Z Respiratory Ventilation, 24-96 Consecutive Hours (ICD-10-PCS; 2019-12-18)
PROC: B548ZZA Ultrasonography of Superior Vena Cava, Guidance (ICD-10-PCS; 2019-12-18)
PROC: 02HV33Z Insertion of Infusion Device into Superior Vena Cava, Percutaneous Approach (ICD-10-PCS; 2019-12-18)
PROC: 0BH17EZ Insertion of Endotracheal Airway into Trachea, Via Natural or Artificial Opening (ICD-10-PCS; 2019-12-18)
PROC: 5A09357 Assistance with Respiratory Ventilation, Less than 24 Consecutive Hours, Continuous Positive Airway Pressure (ICD-10-PCS; 2019-12-23)
PROC: 5A09357 Assistance with Respiratory Ventilation, Less than 24 Consecutive Hours, Continuous Positive Airway Pressure (ICD-10-PCS; 2019-12-24)
PROC: 5A09357 Assistance with Respiratory Ventilation, Less than 24 Consecutive Hours, Continuous Positive Airway Pressure (ICD-10-PCS; 2019-12-25)
PROC: 5A09357 Assistance with Respiratory Ventilation, Less than 24 Consecutive Hours, Continuous Positive Airway Pressure (ICD-10-PCS; 2019-12-26)
PROC: 5A1955Z Respiratory Ventilation, Greater than 96 Consecutive Hours (ICD-10-PCS; principal; 2019-12-27)
PROC: 0BH17EZ Insertion of Endotracheal Airway into Trachea, Via Natural or Artificial Opening (ICD-10-PCS; 2019-12-27)
PROC: 5A09357 Assistance with Respiratory Ventilation, Less than 24 Consecutive Hours, Continuous Positive Airway Pressure (ICD-10-PCS; 2019-12-27)
PROC: 06HY33Z Insertion of Infusion Device into Lower Vein, Percutaneous Approach (ICD-10-PCS; 2019-12-28)
PROC: 05HY33Z Insertion of Infusion Device into Upper Vein, Percutaneous Approach (ICD-10-PCS; 2019-12-28)
PROC: 0BJ08ZZ Inspection of Tracheobronchial Tree, Via Natural or Artificial Opening Endoscopic (ICD-10-PCS; 2020-01-05)
PROC: 0B113F4 Bypass Trachea to Cutaneous with Tracheostomy Device, Percutaneous Approach (ICD-10-PCS; 2020-01-18)
PROC: 0DH63UZ Insertion of Feeding Device into Stomach, Percutaneous Approach (ICD-10-PCS; 2020-01-18)
PROC: 0BJ08ZZ Inspection of Tracheobronchial Tree, Via Natural or Artificial Opening Endoscopic (ICD-10-PCS; 2020-01-18)
PROC: 5A1945Z Respiratory Ventilation, 24-96 Consecutive Hours (ICD-10-PCS; 2020-01-20)
PROC: 0BH17EZ Insertion of Endotracheal Airway into Trachea, Via Natural or Artificial Opening (ICD-10-PCS; 2020-01-20)
DX: A41.9 Sepsis, unspecified organism (principal); J18.9 Pneumonia, unspecified organism; I50.33 Acute on chronic diastolic (congestive) heart failure; N17.0 Acute kidney failure with tubular necrosis; J96.01 Acute respiratory failure with hypoxia; R65.21 Severe sepsis with septic shock; E87.0 Hyperosmolality and hypernatremia; E66.2 Morbid (severe) obesity with alveolar hypoventilation; I42.9 Cardiomyopathy, unspecified; E11.9 Type 2 diabetes mellitus without complications; I11.0 Hypertensive heart disease with heart failure; E03.9 Hypothyroidism, unspecified; E87.6 Hypokalemia; I27.20 Pulmonary hypertension, unspecified; D64.9 Anemia, unspecified; Z20.828 Contact with and (suspected) exposure to other viral communicable diseases; Z82.49 Family history of ischemic heart disease and other diseases of the circulatory system; Z83.3 Family history of diabetes mellitus; Z90.49 Acquired absence of other specified parts of digestive tract; Z79.899 Other long term (current) drug therapy; Z79.82 Long term (current) use of aspirin
CPT/HCPCS: 31500; 36415; 36600; 70450; 71045; 71250; 74018; 74176; 76604; 80048; 80053; 80162; 80320; 81001; 82140; 82550; 82570; 82728; 82803; 82947; 82962; 83615; 83735; 83935; 84100; 84145; 84156; 84295; 84300; 84439; 84443; 84484; 85007; 85025; 85027; 85379; 85610; 85730; 86140; 86850; 86900; 86901; 87040; 87070; 87076; 87086; 87102; 87116; 87186; 87205; 87220; 88112; 88312; 93005; 93306; 94002; 94003; 94640; 94660; 94760; G0378; G0480; J0461; J0692; J0696; J1265; J1450; J1630; J1644; J1720; J1815; J1940; J2020; J2060; J2250; J2597; J2997; J3010; J3480; J7030; J7040; J7050; J7070; J7120; U0003-CS